=== PATIENT | female | born 1960 | race Caucasian/White ===

== ENCOUNTER 2018-03-19 16:46 | Inpatient (IN) ==
--- NOTE | 2018-03-19 17:37 | Emergency Department Note ---
ED Disposition Clinical Impression: Dehydration, UTI (urinary tract infection) Fever Qualifiers: Fever type: unspecified Qualified Code(s): R50.9 - Fever, unspecified Diarrhea Qualifiers: Diarrhea type: presumed infectious Qualified Code(s): R19.7 - Diarrhea, unspecified Disposition: Admitted as Observation Condition on Discharge: Fair Referrals: Provider,Referral, [Primary Care Provider] - Time of Disposition: 20:09 - Critical Care Critical Care Time: No Attestation: On 03/19/18, the high probability of a clinically significant, sudden or life threatening deterioration of the following system(s) required my full and direct attention, intervention and personal management. The time I documented below is in addition to time spent performing reported procedures but includes the following listed in this critical care notation. Medical Decision Making - Amador Inquiry Pt receiving controlled substance: No Amador was queried for this patient: No Vital Signs: 03/19/18 16:52 03/19/18 17:22 03/19/18 17:52 Temperature 101.6 F H 100.8 F H Temperature Source Oral Oral Pulse Rate [Right Radial] 88 97 H 88 Respiratory Rate 20 22 20 Blood Pressure [Right Arm] 100/50 L 86/55 L 105/51 L Blood Pressure Mean [Right Arm] 66 65 69 Blood Pressure Source [Right Arm] Automatic Cuff Automatic Cuff Automatic Cuff Blood Pressure Position [Right Arm] Sitting Sitting Sitting 02 Sat by Pulse Oximetry 95 94 L 95 Oxygen Delivery Method Room Air Room Air Room Air 03/19/18 18:55 Temperature Temperature Source Pulse Rate [Right Radial] 90 Respiratory Rate 20 Blood Pressure [Right Arm] 97/64 L Blood Pressure Mean [Right Arm] 75 Blood Pressure Source [Right Arm] Automatic Cuff Blood Pressure Position [Right Arm] Sitting 02 Sat by Pulse Oximetry 95 Oxygen Delivery Method Room Air - Lab Data Lab Results 03/19/18 17:14: POC Glucose 261 H 03/19/18 17:15: WBC 11.6 H, RBC 3.71 L, Hgb 10.9 L, Hct 33.4 L, MCV 89.9, MCH 29.3, MCHC 32.6, RDW 15.0, Plt Count 304, MPV 9.0, Neut % (Auto) 90.1 H, Lymph % (Auto) 5.5 L, [place] % (Auto) 3.6, Eos % (Auto) 0.3, Baso % (Auto) 0.5, Neut # (Auto) 10.5 H, Lymph # (Auto) 0.6 L, [place] # (Auto) 0.4, Eos # (Auto) 0.0, Baso # (Auto) 0.1, Total Counted 100, Neutrophils % (Manual) 83 H, Band Neutrophils % 1.0, Lymphocytes % (Manual) 9 L, Monocytes % (Manual) 6, Metamyelocytes % 1.0, Platelet Estimate Normal, RBC Morphology Normal 03/19/18 17:15: Sodium 128 L, Potassium 4.3, Chloride 94 L, Carbon Dioxide 14 L, Anion Gap 24.3 H, BUN 37 H, Creatinine 2.04 H, Estimated Creat Clear 36, Estima anthony GFR 25 L, Est GFR ( Amer) 31 L, Glucose 254 H, Calcium 9.2, Total Bilirubin 0.8, AST 19, ALT 21, Alkaline Phosphatase 129 H, Total Protein 8.1, Albumin 2.6 L, Globulin 5.5 H, Albumin/Globulin Ratio 0.5 L 03/19/18 17:15: Influenza Type A Ag Negative, Influenza Type B Ag Negative 03/19/18 17:15: Lactate 1.3 03/19/18 17:40: Urine Color Yellow, Urine Appearance Sl cloudy, Urine pH 8.0, Ur Specific [place] 1.010, Urine Protein 1+, Urine Glucose (UA) Negative, Urine Ketones Negative, Urine Blood Trace-l, Urine Nitrate Negative, Urine Bilirubin Negative, Urine Urobilinogen 1.0, Ur Leukocyte Esterase 3+ A, Urine RBC Occasional, Urine WBC 3-5, Ur Squamous Epith Cells Occasional, Urine Bacteria 3+ Result diagrams: 03/19/18 17:15 03/19/18 17:15 Orders (Tests/Meds): ED MEDICATIONS Generic Name Dose Route Start Last Admin Trade Name Freq PRN Reason Stop Dose Admin Sodium Chloride 1,000 mls @ 999 mls/hr 03/19/18 17:30 03/19/18 17:26 Sod Chlor 0.9% 1000ml Bag IV 03/19/18 18:30 999 mls/hr .Q1H1M BIJAN Administration Ceftriaxone Sodium 2 gm/ 100 mls @ 200 mls/hr 03/19/18 19:15 03/19/18 19:22 Sodium Chloride IV 04/02/18 19:14 200 mls/hr Q24H BIJAN Administration Protocol Sodium Chloride 10 ml 03/19/18 16:58 Saline Flush 10ml Syringe IV 04/18/18 16:57 NEEDED PRN Maintain IV Site ORDERS Category Date Time Status CXR --portable [XR chest portable] Stat Exams 03/19/18 19:07 Taken UA [Urinalysis and Microscopic] Stat Lab 03/19/18 17:40 Ordered Blood Culture Stat Micro 03/19/18 17:25 Ordered Urine Culture Stat Micro 03/19/18 17:40 Received General Adult HPI - General Chief complaint: Nausea/Vomiting/Diarrhea Stated complaint: vomiting,weakness Time Seen by Provider: 03/19/18 17:34 Mode of Arrival: Wheelchair Limitations: No Limitations Description of Symptoms (Recalled from ER Triage Doc. by RN): Pt reports vomitting and diarrhea for approx 3 days. Pt reports weakness, states unable to keep anything down. Pt reports she is diabetic and her sugar has been elevated. Pt also reports body aches - History of Present Illness HPI narrative: some gi upset for two weeks, much worse in last three days. NO prior evals. Diarrhea likely biggest problem. Also has a urostomy and other potential sources of infection. No skin breakdown reported. - Related Data Home Medications Medication Instructions Recorded Confirmed ALPRAZolam [Xanax 0.5mg tab] 1 tab PO TIDP PRN 08/26/17 03/19/18 Aspirin [Aspirin 81mg EC Tab] 81 mg PO DAILY 08/26/17 08/26/17 Citalopram Hydrobromide [Celexa] 40 mg PO DAILY 08/26/17 08/26/17 Gabapentin [Gabapentin 300mg Cap] 1 tab PO HS 08/26/17 03/19/18 Insulin NPH Hum/Reg Insulin Hm 30 units SQ BID 08/26/17 08/26/17 [Novolin 70-30 100 Unit/ml Vial] Levothyroxine Sodium 25 mcg PO DAILY 08/26/17 08/26/17 [Levothyroxine 25mcg (0.025mg) Tab] Lisinopril [Lisinopril 2.5mg Tab] 1 tab PO DAILY 08/26/17 03/19/18 Nystatin [Nystatin Cr 100,000 1 applic TOPICAL DAILY 08/26/17 08/26/17 Units/GM 30GM] Triamcinolone Acetonide [Kenalog 1 applic TOPICAL DAILY 08/26/17 08/26/17 0.1% cream 30gm tube] Zolpidem Tartrate [Ambien] 5 mg PO HS 08/26/17 03/19/18 Carvedilol [Carvedilol 3.125mg Tab] 3.125 mg PO DAILY 03/19/18 03/19/18 Allergies Allergy/AdvReac Type Severity Reaction Status Date / Time No Known Allergies Allergy Unverified 01/29/17 14:53 [facility] History - Hepatitis A Screen Drug use history?: No High risk sexual behaviors?: No History of sexually transmitted infection?: No Currently employed?: No Childcare worker?: No Do you have indoor plumbing?: Yes Do you have electricity?: Yes Attestation statement:: This patient has been screened for Hepatitis A risk factors. Medical History: Reports:: Cancer (bladder), Diabetes Mellitus Type 2 Denies:: Diabetes Mellitus Type 1, MRSA Amputation: No - Social History Smoking Status: Current every day smoker Tobacco Type: cigarettes # Packs/Day (cigarettes): 1 Alcohol Intake: never ROS Obtained: Yes All systems reviewed & no additional complaints - Constitutional Constitutional: Reports system reviewed and no additional complaints, except as docu, Reports chills, Reports fever(s), Reports lethargy, Reports weakness - Eyes Eyes: Reports system reviewed and no additional complaints, except as docu, Reports change in vision - ENT Ears, Nose, Mouth, and Throat: Reports system reviewed and no additional comp laints, except as docu, Reports nasal discharge, Reports sinus pressure - Cardiovascular Cardiovascular: Reports system reviewed and no additional complaints, except as docu, Reports chest pain, Reports chest pain at rest, Reports chest pain with activity, Reports dyspnea, Reports dyspnea on exertion - Respiratory Respiratory: Yes system reviewed and no additional complaints, except as docu, Yes chest congestion, Yes cough, No coughing up blood, No stridor, No wheezing - Gastrointestinal Gastrointestingal: Reports: system reviewed and no additional complaints, except as docu, abdominal pain, diarrhea, nausea. Denies: bright red blood in stools, black, tarry stools - Genitourinary Female Genitourinary: Reports system reviewed and no additional complaints, except as docu, Reports other (urostomy bag) - Musculoskeletal Musculoskeletal: Reports system reviewed and no additional complaints, except as docu, Denies joint pain, Denies joint stiffness, Denies joint swelling - Integumentary/Breasts Skin/Breast: Denies itching, Denies rash, Denies skin pain - Neurologic Neurologic: Reports system reviewed and no additional complaints, except as docu, Denies behavioral changes, Denies unsteadiness, Denies frequent falls, Denies headache(s), Denies numbness, Denies syncope, Denies tingling, Denies tremor(s) - Hematologic/Lymphatic Henatologic/Lymphatic: Reports system reviewed and no additional complaints, except as docu, Denies easy bleeding, Denies easy bruising, Denies lym phadenopathy Physical Exam - General General appearance: alert, in distress, other - Head Head exam: atraumatic, normocephalic, normal inspection - Eye Eye exam: Present: normal appearance, PERRL, EOMI - ENT ENT exam: Present: normal exam, normal oropharynx, mucous membranes moist, TM's normal bilaterally, normal external ear exam - Neck Neck exam: Present: normal inspection, full ROM, trachea midline. Absent: meningismus, lymphadenopathy - Chest Chest inspection: Present: normal inspection, symmetric chest wall rise. Absent: tenderness - Respiratory Respiratory exam: Present: normal lung sounds bilaterally. Absent: respiratory distress - Cardiovascular Cardiovascular exam: Present: regular rate, normal rhythm, tachycardia. Absent: JVD - Abdominal Exam Abdominal exam: Present: soft, tenderness. Absent: distention, guarding, rebound, rigidity, mass Abdominal tenderness: Present: diffuse, mild - Extremities Exam Extremities exam: Present: normal inspection, full ROM, normal capillary refill. Absent: calf tenderness - Back Exam Back exam: Present: normal inspection. Absent: tenderness - Neurological Exam Neurological exam: Present: alert, oriented X3, CN II-XII intact - Psychiatric Psychiatric exam: Present: normal affect, normal mood - Skin Skin exam: Present: warm, dry, intact, normal color - Lymphatic Lymphatic Findings: no adenopathy
[2018-03-19 17:47] LABS: Microscopic, Urine URINE MICROSCOPIC (MICROSCOPIC)
[2018-03-19 17:48] LABS: Albumin Level 2.6 gm/dL (3.4-5.0); Albumin/Globulin Ratio 0.5 (1.1-1.8); Anion Gap 24.3 mEq/L (5-15); Basophils # 0.1 K/mm3 (0-0.2); Basophils % 0.5 % (0.1-2.0); Bilirubin,Total 0.8 mg/dL (0.2-1.0); Calcium 9.2 mg/dL (8.5-10.1); Eosinophils % 0.3 % (0.1-12.0); Globulin 5.5 gm/dl (1.3-3.2); Hematocrit 33.4 % (37.0-47.0); Hemoglobin 10.9 g/dL (12.2-16.2); Lymphocytes # 0.6 K/mm3 (0.7-4.5); Lymphocytes % 5.5 % (10-50); Mean Corpuscular HGB Conc 32.6 g/dL (31.8-35.4); Mean Corpuscular Hemoglobin 29.3 pg (27.0-31.2); Mean Corpuscular Volume 89.9 fl (81-99); Monocytes # 0.4 K/mm3 (0.1-1.0); Monocytes % 3.6 % (1.7-9.3); Neutrophils # 10.5 K/mm3 (1.8-7.8); Neutrophils % 90.1 % (37.0-80.0); Platelet Count 304 K/mm3 (142-424); Potassium 4.3 mmoL/L (3.5-5.1); Red Blood Count 3.71 M/mm3 (4.20-5.40); Total Protein,Serum 8.1 gm/dL (6.4-8.2); White Blood Count 11.6 K/mm3 (4.8-10.8)
[2018-03-19 17:49] LABS: Appearance,Urine SL CLOUDY (Clear); Blood, Urine TRACE-L (Negative); Color,Urine YELLOW (Yellow); Glucose,Urine (UA) Negative (Negative); Ketones,Urine Negative (Negative); Leukocyte Esterase,Urine 3+ (Negative); Protein,Urine 1+ (Negative)
[2018-03-19 17:56] LABS: Bilirubin,Urine Negative (Negative)
[2018-03-19 18:05] LABS: Bacteria,Urine 3+ /lpf; RBC,Urine Occasional #/hpf (0-3); Squamous Epithelial Cell,Urine Occasional #/hpf (0-5)
[2018-03-19 18:27] LABS: Lymphocytes % 9 % (10-50); Monocytes % 6 % (2-9); Neutrophils % 83 % (42-76); Total Cells Counted 100
[2018-03-19 18:28] LABS: RBC Morphology Normal
[2018-03-20 06:40] LABS: Anion Gap 21.8 mEq/L (5-15); Potassium 3.8 mmoL/L (3.5-5.1)
[2018-03-20 06:43] LABS: Basophils % 0.2 % (0.1-2.0); Hematocrit 26.8 % (37.0-47.0); Lymphocytes # 0.5 K/mm3 (0.7-4.5); Lymphocytes % 7.1 % (10-50); Mean Corpuscular HGB Conc 31.1 g/dL (31.8-35.4); Mean Corpuscular Hemoglobin 28.7 pg (27.0-31.2); Mean Corpuscular Volume 92.2 fl (81-99); Mean Platelet Volume 9.3 fl (7.4-10.4); Monocytes # 0.4 K/mm3 (0.1-1.0); Monocytes % 4.7 % (1.7-9.3); Neutrophils # 6.8 K/mm3 (1.8-7.8); Neutrophils % 87.9 % (37.0-80.0); Platelet Count 247 K/mm3 (142-424); Red Blood Count 2.91 M/mm3 (4.20-5.40); Red Cell Distribution Width 14.8 % (11.5-17.5); White Blood Count 7.7 K/mm3 (4.8-10.8)
[2018-03-20 07:15] LABS: Calcium 7.8 mg/dL (8.5-10.1)
--- NOTE | 2018-03-20 07:24 | Pharmacy Consult Notes ---
[facility] Pharmacy VTE Monitoring - Patient Demographics Admission date: 03/19/18 Report Date: 03/20/18 Time: 07:24 Allergies/Adverse Reactions: Patient Allergies No Known Allergies Allergy (Verified 03/20/18 00:13) Height: 1.52 m Weight: 73.936 kg Patient Problems: Current Active Problems Dehydration (Acute) UTI (urinary tract infection) (Acute) Fever (Acute) Diarrhea (Acute) - VTE Risk Labs: VTE Related Lab Results Hgb 10.9 g/dL (12.2-16.2) L 03/19/18 17:15 Hct 26.8 % (37.0-47.0) L 03/20/18 06:00 Plt Count 247 K/mm3 (142-424) 03/20/18 06:00 BUN 30 mg/dL (7-18) H 03/20/18 06:00 Creatinine 1.61 mg/dL (0.55-1.02) H D 03/20/18 06:00 Estimated Creat Clear 46 mL/min (50-200) 03/20/18 06:00 Was VTE Risk Assessment Performed: Yes VTE Risk Level: Very Low Risk Clinical Trial Participant: No - Prophylaxis VTE Prophylaxis Ordered?: Yes Types of VTE Prophylaxis: TEDS Knee High
--- NOTE | 2018-03-20 08:41 | Pharmacy Consult Notes ---
- Pharmacy Consult Date: 03/20/18 Time: 08:40 Referring provider: DR. DAWKINS Reason for Consult:: VANCOMYCIN DOSING Allergies and ADEs:: Allergies Allergy/AdvReac Type Severity Reaction Status Date / Time No Known Allergies Allergy Verified 03/20/18 00:13 Home Medications:: Home Medications Medication Instructions Recorded Confirmed Type ALPRAZolam [Xanax 0.5mg tab] 0.5 mg PO HSP PRN 08/26/17 03/20/18 History Aspirin [Aspirin 81mg EC Tab] 81 mg PO DAILY 08/26/17 03/20/18 History Citalopram Hydrobromide [Celexa] 40 mg PO DAILY 08/26/17 03/20/18 History Gabapentin [Gabapentin 300mg Cap] 300 mg PO HS 08/26/17 03/20/18 History Insulin NPH Hum/Reg Insulin Hm 30 units SQ BID 08/26/17 08/26/17 History [Novolin 70-30 100 Unit/ml Vial] Levothyroxine Sodium 25 mcg PO DAILY 08/26/17 03/20/18 History [Levothyroxine 25mcg (0.025mg) Tab] Lisinopril [Lisinopril 2.5mg Tab] 2.5 tab PO BID 08/26/17 03/20/18 History Carvedilol [Carvedilol 3.125mg Tab] 3.125 mg PO DAILY 03/19/18 03/19/18 History Zolpidem Tartrate [Ambien 5mg 5 mg PO HSP PRN 03/20/18 03/20/18 History tablet] Height: 1.52 m Weight: 73.936 kg Laboratory Results:: Laboratory Results - last 24 hr 03/19/18 17:14: POC Glucose 261 H 03/19/18 17:15: WBC 11.6 H, RBC 3.71 L, Hgb 10.9 L, Hct 33.4 L, MCV 89.9, MCH 29.3, MCHC 32.6, RDW 15.0, Plt Count 304, MPV 9.0, Neut % (Auto) 90.1 H, Lymph % (Auto) 5.5 L, [place] % (Auto) 3.6, Eos % (Auto) 0.3, Baso % (Auto) 0.5, Neut # (Auto) 10.5 H, Lymph # (Auto) 0.6 L, [place] # (Auto) 0.4, Eos # (Auto) 0.0, Baso # (Auto) 0.1, Total Counted 100, Neutrophils % (Manual) 83 H, Band Neutrophils % 1.0, Lymphocytes % (Manual) 9 L, Monocytes % (Manual) 6, Metamyelocytes % 1.0, Platelet Estimate Normal, RBC Morphology Normal 03/19/18 17:15: Sodium 128 L, Potassium 4.3, Chloride 94 L, Carbon Dioxide 14 L, Anion Gap 24.3 H, BUN 37 H, Creatinine 2.04 H, Estimated Creat Clear 36, Estimated GFR 25 L, Est GFR ( Amer) 31 L, Glucose 254 H, Calcium 9.2, Total Bilirubin 0.8, AST 19, ALT 21, Alkaline Phosphatase 129 H, Total Protein 8.1, Albumin 2.6 L, Globulin 5.5 H, Albumin/Globulin Ratio 0.5 L 03/19/18 17:15: Influenza Type A Ag Negative, Influenza Type B Ag Negative 03/19/18 17:15: Lactate 1.3 03/19/18 17:40: Urine Color Yellow, Urine Appearance Sl cloudy, Urine pH 8.0, Ur Specific [place] 1.010, Urine Protein 1+, Urine Glucose (UA) Negative, Urine Ketones Negative, Urine Blood Trace-l, Urine Nitrate Negative, Urine Bilirubin Negative, Urine Urobilinogen 1.0, Ur Leukocyte Esterase 3+ A, Urine RBC Occasional, Urine WBC 3-5, Ur Squamous Epith Cells Occasional, Urine Bacteria 3+ 03/19/18 21:54: POC Glucose 228 H 03/20/18 05:45: POC Glucose 169 H 03/20/18 06:00: WBC 7.7 D, RBC 2.91 L, Hct 26.8 L, MCV 92.2, MCH 28.7, MCHC 31.1 L, RDW 14.8, Plt Count 247, MPV 9.3, Neut % (Auto) 87.9 H, Lymph % (Auto) 7.1 L, [place] % (Auto) 4.7, Eos % (Auto) 0.0 L, Baso % (Auto) 0.2, Neut # (Auto) 6.8, Lymph # (Auto) 0.5 L, [place] # (Auto) 0.4, Eos # (Auto) 0.0, Baso # (Auto) 0.0 03/20/18 06:00: Sodium 133 L, Potassium 3.8, Chloride 103, Carbon Dioxide 12 L, Anion Gap 21.8 H, BUN 30 H, Creatinine 1.61 H D, Estimated Creat Clear 46, Estimated GFR 33 L, Est GFR ( Amer) 40 L D, Glucose 162 H D, Calcium 7.8 L D Medical History: Reports:: Cancer, Coronary Artery Disease, Diabetes Mellitus Type 2, Hyperlipidemia, Hypertension, Myocardial Infarction Denies:: Diabetes Mellitus Type 1, MRSA Assessment and Plan - Assessment and plan all Dx Assessment and Plan for all problems:: BASED ON VANCOMYCIN TROUGH LEVEL, RECOMMEND VANCOMYCIN 1 GM IV Q24H. WILL OBTAIN VANCOMYCIN TROUGH LEVEL PRIOR TO 4TH DOSE. PHARMACY WILL FOLLOW DAILY AND ADJUST APPROPRIATE.
[2018-03-20 08:52] LABS: Lymphocytes % 6 % (10-50); Monocytes % 4 % (2-9); Neutrophils % 90 % (42-76); Total Cells Counted 100
[2018-03-20 08:53] LABS: RBC Morphology Normal
--- NOTE | 2018-03-20 09:09 | History & Physical Report ---
*Admission Date: 03/19/18 *Chief complaint: weakness *History of present illness: 57-year-old female to the ER with complaints of weakness, diarrhea and feeling bad. Patient was admitted with positive blood cultures waiting identification of bug. Patient has history of bladder cancer with ileostomy and pacemaker. Patient placed on antibiotics. [facility] History I have reviewed the patient's past medical history: Yes Medical History: Reports:: Cancer, Coronary Artery Disease, Diabetes Mellitus Type 2, Hyperlipidemia, Hypertension, Myocardial Infarction Denies:: Diabetes Mellitus Type 1, MRSA Have you ever received a pneumonia vaccine?: No Have you received a flu vaccine this season?: Yes Other Surgeries: Yes: Cardiac Catheterization, Hysterectomy-Total, Open Heart Surgery Amputation: No Fractures: No - *Social History Educational Level: Attended High School Smoking Status: Current every day smoker Tobacco Type: cigarettes # Packs/Day (cigarettes): 1 Alcohol Intake: never Occupational Status: disabled Housing: house Household Members: spouse, children, other Travel in the last 8 weeks: None - Psychiatric History Expresses thoughts of harming self/others: None Suicide Plan Description: No Plan Family Hx:: Cancer, Coronary Artery Disease, Diabetes Review of Systems - Review of Systems Review of systems:: pertinent systems reviewed and negative unless documented below - Constitutional Reports weakness - Eyes Denies change in vision - ENT Denies sore throat - *Cardiovascular Reports lightheadedness, Denies chest pain at rest - *Respiratory Denies cough - *Gastrointestinal Reports loose stools, Denies bloating - *Genitourinary Denies urinary urgency - *Musculoskeletal Denies decreased muscle mass - Integumentary/Breasts Denies rash - *Neurologic Reports weakness, Denies behavioral changes, Denies unsteadiness, Denies frequent falls, Denies headache(s), Denies numbness, Denies fainting, Denies tingling, Denies tremor(s) - Psychiatric Denies anxiety - Endocrine Denies flushing - Hematologic/Lymphatic Denies enlarged lymph nodes - Allergic/Immunologic Reports wheezing, Denies lip swelling Meds Home Medications Medication Instructions Recorded Confirmed Type ALPRAZolam [Xanax 0.5mg tab] 0.5 mg PO HSP PRN 08/26/17 03/20/18 History Aspirin [Aspirin 81mg EC Tab] 81 mg PO DAILY 08/26/17 03/20/18 History Citalopram Hydrobromide [Celexa] 40 mg PO DAILY 08/26/17 03/20/18 History Gabapentin [Gabapentin 300mg Cap] 300 mg PO HS 08/26/17 03/20/18 History Insulin NPH Hum/Reg Insulin Hm 30 units SQ BID 08/26/17 08/26/17 History [Novolin 70-30 100 Unit/ml Vial] Levothyroxine Sodium 25 mcg PO DAILY 08/26/17 03/20/18 History [Levothyroxine 25mcg (0.025mg) Tab] Lisinopril [Lisinopril 2.5mg Tab] 2.5 tab PO BID 08/26/17 03/20/18 History Carvedilol [Carvedilol 3.125mg Tab] 3.125 mg PO DAILY 03/19/18 03/19/18 History Zolpidem Tartrate [Ambien 5mg 5 mg PO HSP PRN 03/20/18 03/20/18 History tablet] Allergies Allergy/AdvReac Type Severity Reaction Status Date / Time No Known Allergies Allergy Verified 03/20/18 00:13 Exam Vital signs and Labs for Last 24 Hours: Temp Pulse Resp BP Pulse Ox 98.8 F 87 18 93/56 L 95 03/20/18 08:00 03/20/18 08:00 03/20/18 08:00 03/20/18 08:00 03/20/18 08:00 Laboratory Results - last 24 hr 03/19/18 17:14: POC Glucose 261 H 03/19/18 17:15: WBC 11.6 H, RBC 3.71 L, Hgb 10.9 L, Hct 33.4 L, MCV 89.9, MCH 29.3, MCHC 32.6, RDW 15.0, Plt Count 304, MPV 9.0, Neut % (Auto) 90.1 H, Lymph % (Auto) 5.5 L, [place] % (Auto) 3.6, Eos % (Auto) 0.3, Baso % (Auto) 0.5, Neut # (Auto) 10.5 H, Lymph # (Auto) 0.6 L, [place] # (Auto) 0.4, Eos # (Auto) 0.0, Baso # (Auto) 0.1, Total Counted 100, Neutrophils % (Manual) 83 H, Band Neutrophils % 1.0, Lymphocytes % (Manual) 9 L, Monocytes % (Manual) 6, Metamyelocytes % 1.0, Platelet Estimate Normal, RBC Morphology Normal 03/19/18 17:15: Sodium 128 L, Potassium 4.3, Chloride 94 L, Carbon Dioxide 14 L, Anion Gap 24.3 H, BUN 37 H, Creatinine 2.04 H, Estimated Creat Clear 36, Estimated GFR 25 L, Est GFR ( Amer) 31 L, Glucose 254 H, Calcium 9.2, Total Bilirubin 0.8, AST 19, ALT 21, Alkaline Phosphatase 129 H, Total Protein 8.1, Albumin 2.6 L, Globulin 5.5 H, Albumin/Globulin Ratio 0.5 L 03/19/18 17:15: Influenza Type A Ag Negative, Influenza Type B Ag Negative 03/19/18 17:15: Lactate 1.3 03/19/18 17:40: Urine Color Yellow, Urine Appearance Sl cloudy, Urine pH 8.0, Ur Specific [place] 1.010, Urine Protein 1+, Urine Glucose (UA) Negative, Urine Ketones Negative, Urine Blood Trace-l, Urine Nitrate Negative, Urine Bilirubin Negative, Urine Urobilinogen 1.0, Ur Leukocyte Esterase 3+ A, Urine RBC Occasional, Urine WBC 3-5, Ur Squamous Epith Cells Occasional, Urine Bacteria 3+ 03/19/18 21:54: POC Glucose 228 H 03/20/18 05:45: POC Glucose 169 H 03/20/18 06:00: WBC 7.7 D, RBC 2.91 L, Hct 26.8 L, MCV 92.2, MCH 28.7, MCHC 31.1 L, RDW 14.8, Plt Count 247, MPV 9.3, Neut % (Auto) 87.9 H, Lymph % (Auto) 7.1 L, [place] % (Auto) 4.7, Eos % (Auto) 0.0 L, Baso % (Auto) 0.2, Neut # (Auto) 6.8, Lymph # (Auto) 0.5 L, [place] # (Auto) 0.4, Eos # (Auto) 0.0, Baso # (Auto) 0.0, Total Counted 100, Neutrophils % (Manual) 90 H, Lymphocytes % (Manual) 6 L, Monocytes % (Manual) 4, Platelet Estimate Normal, RBC Morphology Normal 03/20/18 06:00: Sodium 133 L, Potassium 3.8, Chloride 103, Carbon Dioxide 12 L, Anion Gap 21.8 H, BUN 30 H, Creatinine 1.61 H D, Estimated Creat Clear 46, Estimated GFR 33 L, Est GFR ( Amer) 40 L D, Glucose 162 H D, Calcium 7.8 L D I & O for Last 24 hours: Intake & Output 03/17/18 03/18/18 03/19/18 03/20/18 11:59 11:59 11:59 11:59 Intake Total 4480 / 4480 Output Total 1200 / 1200 Balance 3280 / 3280 Weight 163 lb Microbiology Reports for the Last 24 Hours: Microbiology 03/19/18 17:40 Urine,Clean Catch Urine Culture - Final Multiple organisms, suggests contamination. 03/19/18 17:25 Blood Blood Culture - Preliminary 03/19/18 17:25 Blood Blood Culture - Preliminary - Constitutional no acute distress - *Routine HEENT Exam Head: Present: normocephalic Eye: Present: EOMI, PERRL ENT: Present: mucous membranes moist - *Routine Neck Exam Present: supple. Absent: lymphadenopathy - *Routine Respiratory Exam Present: wheezes - *Routine Cardiovascular Exam Present: RRR, murmur - *Routine Abdominal Exam Present: soft, normoactive bowel sounds, ostomy. Absent: tenderness Comments: Iliostomy draining on the right side of the abdomen. - *Routine Extremities Exam Absent: cyanosis, clubbing, edema - *Routine Skin Exam Present: warm. Absent: rash - *Routine Neurological Exam Present: alert, oriented X3 Assessment and Plan (1) Bladder cancer Current visit: Yes Status: Acute Category: Medical Code(s): C67.9 - Malignant neoplasm of bladder, unspecified (2) Pacemaker Current visit: Yes Status: Acute Category: Medical Code(s): Z95.0 - Presence of cardiac pacemaker (3) Ileostomy in place Current visit: Yes Status: Acute Category: Medical Code(s): Z93.2 - Ileostomy status (4) Diarrhea Current visit: Yes Status: Acute Qualifiers: Diarrhea type: presumed infectious Qualified Code(s): R19.7 - Diarrhea, unspecified Category: Medical Code(s): R19.7 - Diarrhea, unspecified (5) Diabetes mellitus Current visit: No Status: Acute Qualifiers: Diabetes mellitus type: type 1 Diabetes mellitus complication status: with unspecified complications Qualified Code(s): E10.8 - Type 1 diabetes mellitus with unspecified complications Category: Medical Code(s): E11.9 - Type 2 diabetes mellitus without complications (6) Renal insufficiency Current visit: No Status: Acute Category: Medical Code(s): N28.9 - Disorder of kidney and ureter, unspecified (7) Bacteremia Current visit: Yes Status: Acute Category: Medical Code(s): R78.81 - Bacteremia - Assessment and plan all Dx Assessment and Plan for all problems:: Rounded with Dr. Davis all orders per Ryan
[2018-03-20 09:12] LABS: Hemoglobin 8.4 g/dL (12.2-16.2)
--- NOTE | 2018-03-20 11:03 | Pharmacy Consult Notes ---
- Pharmacy Consult Date: 03/20/18 Time: 11:01 Referring provider: DR. DAWKINS Reason for Consult:: TOBRAMYCIN DOSING Allergies and ADEs:: Allergies Allergy/AdvReac Type Severity Reaction Status Date / Time No Known Allergies Allergy Verified 03/20/18 00:13 Home Medications:: Home Medications Medication Instructions Recorded Confirmed Type ALPRAZolam [Xanax 0.5mg tab] 0.5 mg PO HSP PRN 08/26/17 03/20/18 History Aspirin [Aspirin 81mg EC Tab] 81 mg PO DAILY 08/26/17 03/20/18 History Citalopram Hydrobromide [Celexa] 40 mg PO DAILY 08/26/17 03/20/18 History Gabapentin [Gabapentin 300mg Cap] 300 mg PO HS 08/26/17 03/20/18 History Insulin NPH Hum/Reg Insulin Hm 30 units SQ BID 08/26/17 08/26/17 History [Novolin 70-30 100 Unit/ml Vial] Levothyroxine Sodium 25 mcg PO DAILY 08/26/17 03/20/18 History [Levothyroxine 25mcg (0.025mg) Tab] Lisinopril [Lisinopril 2.5mg Tab] 2.5 tab PO BID 08/26/17 03/20/18 History Carvedilol [Carvedilol 3.125mg Tab] 3.125 mg PO DAILY 03/19/18 03/19/18 History Zolpidem Tartrate [Ambien 5mg 5 mg PO HSP PRN 03/20/18 03/20/18 History tablet] Height: 1.52 m Weight: 73.936 kg Laboratory Results:: Laboratory Results - last 24 hr 03/19/18 17:14: POC Glucose 261 H 03/19/18 17:15: WBC 11.6 H, RBC 3.71 L, Hgb 10.9 L, Hct 33.4 L, MCV 89.9, MCH 29.3, MCHC 32.6, RDW 15.0, Plt Count 304, MPV 9.0, Neut % (Auto) 90.1 H, Lymph % (Auto) 5.5 L, Sac % (Auto) 3.6, Eos % (Auto) 0.3, Baso % (Auto) 0.5, Neut # (Auto) 10.5 H, Lymph # (Auto) 0.6 L, Sac # (Auto) 0.4, Eos # (Auto) 0.0, Baso # (Auto) 0.1, Total Counted 100, Neutrophils % (Manual) 83 H, Band Neutrophils % 1.0, Lymphocytes % (Manual) 9 L, Monocytes % (Manual) 6, Metamyelocytes % 1.0, Platelet Estimate Normal, RBC Morphology Normal 03/19/18 17:15: Sodium 128 L, Potassium 4.3, Chloride 94 L, Carbon Dioxide 14 L, Anion Gap 24.3 H, BUN 37 H, Creatinine 2.04 H, Estimated Creat Clear 36, Estimated GFR 25 L, Est GFR ( Amer) 31 L, Glucose 254 H, Calcium 9.2, Total Bilirubin 0.8, AST 19, ALT 21, Alkaline Phosphatase 129 H, Total Protein 8.1, Albumin 2.6 L, Globulin 5.5 H, Albumin/Globulin Ratio 0.5 L 03/19/18 17:15: Influenza Type A Ag Negative, Influenza Type B Ag Negative 03/19/18 17:15: Lactate 1.3 03/19/18 17:40: Urine Color Yellow, Urine Appearance Sl cloudy, Urine pH 8.0, Ur Specific [place] 1.010, Urine Protein 1+, Urine Glucose (UA) Negative, Urine Ketones Negative, Urine Blood Trace-l, Urine Nitrate Negative, Urine Bilirubin Negative, Urine Urobilinogen 1.0, Ur Leukocyte Esterase 3+ A, Urine RBC Occasional, Urine WBC 3-5, Ur Squamous Epith Cells Occasional, Urine Bacteria 3+ 03/19/18 21:54: POC Glucose 228 H 03/20/18 05:45: POC Glucose 169 H 03/20/18 06:00: WBC 7.7 D, RBC 2.91 L, Hgb 8.4 L D, Hct 26.8 L, MCV 92.2, MCH 28.7, MCHC 31.1 L, RDW 14.8, Plt Count 247, MPV 9.3, Neut % (Auto) 87.9 H, Lymph % (Auto) 7.1 L, Sac % (Auto) 4.7, Eos % (Auto) 0.0 L, Baso % (Auto) 0.2, Neut # (Auto) 6.8, Lymph # (Auto) 0.5 L, Sac # (Auto) 0.4, Eos # (Auto) 0.0, Baso # (Auto) 0.0, Total Counted 100, Neutrophils % (Manual) 90 H, Lymphocytes % (Manual) 6 L, Monocytes % (Manual) 4, Platelet Estimate Normal, RBC Morphology Normal 03/20/18 06:00: Sodium 133 L, Potassium 3.8, Chloride 103, Carbon Dioxide 12 L, Anion Gap 21.8 H, BUN 30 H, Creatinine 1.61 H D, Estimated Creat Clear 46, Estimated GFR 33 L, Est GFR ( Amer) 40 L D, Glucose 162 H D, Calcium 7.8 L D Medical History: Reports:: Cancer, Coronary Artery Disease, Diabetes Mellitus Type 2, Hyperlipidemia, Hypertension, Myocardial Infarction Denies:: Diabetes Mellitus Type 1, MRSA Assessment and Plan (1) Bladder cancer Current visit: Yes Status: Acute Category: Medical Code(s): C67.9 - Malignant neoplasm of bladder, unspecified (2) Pacemaker Current visit: Yes Status: Acute Category: Medical Code(s): Z95.0 - Presence of cardiac pacemaker (3) Ileostomy in place Current visit: Yes Status: Acute Category: Medical Code(s): Z93.2 - Ileostomy status (4) Diarrhea Current visit: Yes Status: Acute Qualifiers: Diarrhea type: presumed infectious Qualified Code(s): R19.7 - Diarrhea, unspecified Category: Medical Code(s): R19.7 - Diarrhea, unspecified (5) Diabetes mellitus Current visit: No Status: Acute Qualifiers: Diabetes mellitus type: type 1 Diabetes mellitus complication status: with unspecified complications Qualified Code(s): E10.8 - Type 1 diabetes mellitus with unspecified complications Category: Medical Code(s): E11.9 - Type 2 diabetes mellitus without complications (6) Renal insufficiency Current visit: No Status: Acute Category: Medical Code(s): N28.9 - Disorder of kidney and ureter, unspecified (7) Bacteremia Current visit: Yes Status: Acute Category: Medical Code(s): R78.81 - Bacteremia - Assessment and plan all Dx Assessment and Plan for all problems:: BASED ON PATIENT'S FACTORS, RECOMMEND STARTING WITH TOBRAMYCIN 240 MG Q48H AT THIS TIME. WILL OBTAIN 4 AND 12 HOUR POST INFUSION LEVELS, TO DETERMINE CLEARANCE. STOPPING THE VANCOMYCIN AT THIS TIME. PHARMACY WILL FOLLOW DAILY AND ADJUST APPROPRIATE. BRAD CHAMBERS, PHARMD
[2018-03-21 07:37] LABS: Basophils % 0.3 % (0.1-2.0); Eosinophils # 0.1 K/mm3 (0.0-0.4); Eosinophils % 0.8 % (0.1-12.0); Hematocrit 24.7 % (37.0-47.0); Lymphocytes # 1.2 K/mm3 (0.7-4.5); Lymphocytes % 16.6 % (10-50); Mean Corpuscular HGB Conc 31.8 g/dL (31.8-35.4); Mean Corpuscular Hemoglobin 29.2 pg (27.0-31.2); Mean Corpuscular Volume 91.7 fl (81-99); Mean Platelet Volume 9.4 fl (7.4-10.4); Monocytes # 0.3 K/mm3 (0.1-1.0); Monocytes % 4.5 % (1.7-9.3); Neutrophils # 5.5 K/mm3 (1.8-7.8); Neutrophils % 77.9 % (37.0-80.0); Platelet Count 253 K/mm3 (142-424); White Blood Count 7.1 K/mm3 (4.8-10.8)
[2018-03-21 07:44] LABS: Anion Gap 18.7 mEq/L (5-15); Calcium 8.2 mg/dL (8.5-10.1); Potassium 3.7 mmoL/L (3.5-5.1)
[2018-03-21 07:47] LABS: Hemoglobin 7.9 g/dL (12.2-16.2)
--- NOTE | 2018-03-21 09:14 | Progress Note ---
Internal Medicine - PN: Subj *Date: 03/21/18 *Time: 08:20 Interval history: Today patient sitting up in with no complaints. Exam Vital signs and Labs for Last 24 Hours: Temp Pulse Resp BP Pulse Ox 98.5 F 83 15 90/54 L 98 03/21/18 07:49 03/21/18 07:49 03/21/18 07:49 03/21/18 07:49 03/21/18 07:49 Laboratory Results - last 24 hr 03/20/18 06:00: Hgb 8.4 L D 03/20/18 08:45: Stl Aeromonas (PCR) Not detected, Stl C. cayetanensis PCR Not detected, Stool Rotavirus (PCR) Not detected, Stl Adenov F 40/41 PCR Not detected, Stool Astrovirus (PCR) Not detected, Stool Campylobacter PCR Not detected, Stl C.difficile Tox PCR Not detected, Stool Cryptosporidium PCR Not detected, Stl E.coli Shiga Tox PCR Not detected, Stool E coli O157 PCR Not detected, Stl Enterotoxigenic E PCR Not detected, Stool EPEC (PCR) Not detected, Stool EAEC (PCR) Not detected, Stl E. histolytica PCR Not detected, Stool Giardia Lamblia PCR Not detected, Stool Salmonella PCR Not detected, Stool Sapovirus (PCR) Not detected, Stl P. shigelloides PCR Not detected, Stl Shigella/EIEC PCR Not detected, St Y.enterocolitica PCR Not detected, Stool Vibrio (PCR) Not detected, Stl Vibrio cholerae PCR Not detected, Stl Norovirus GI/GII PCR Detected A 03/20/18 11:08: POC Glucose 266 H 03/20/18 17:08: POC Glucose 119 H 03/20/18 17:52: Random Tobramycin 7.9 03/20/18 21:14: POC Glucose 133 H 03/21/18 02:05: Random Tobramycin 3.1 03/21/18 06:21: POC Glucose 117 H 03/21/18 06:50: WBC 7.1, RBC 2.70 L, Hgb 7.9 L*, Hct 24.7 L, MCV 91.7, MCH 29.2, MCHC 31.8, RDW 15.0, Plt Count 253, MPV 9.4, Neut % (Auto) 77.9, Lymph % (Auto) 16.6, [place] % (Auto) 4.5, Eos % (Auto) 0.8, Baso % (Auto) 0.3, Neut # (Auto) 5.5, Lymph # (Auto) 1.2, [place] # (Auto) 0.3, Eos # (Auto) 0.1, Baso # (Auto) 0.0 03/21/18 06:50: Sodium 137, Potassium 3.7, Chloride 106, Carbon Dioxide 16 L D, Anion Gap 18.7 H, BUN 22 H D, Creatinine 1.25 H D, Estimated Creat Clear 59, Estimated GFR 44 L, Est GFR ( Amer) 54 L D, Glucose 111 H, Calcium 8.2 L I & O for Last 24 hours: Intake & Output 03/18/18 03/19/18 03/20/18 03/21/18 11:59 11:59 11:59 11:59 Intake Total 4480 / 4480 1636 / 1636 Output Total 1570 / 1570 1325 / 1325 Balance 2910 / 2910 311 / 311 Weight 163 lb Microbiology Reports for the Last 24 Hours: Microbiology 03/19/18 17:25 Blood Blood Culture - Preliminary Gram Positive Cocci 03/19/18 17:25 Blood Blood Culture - Preliminary Gram Positive Cocci 03/19/18 17:40 Urine,Clean Catch Urine Culture - Final Multiple organisms, suggests contamination. - Constitutional no acute distress - *Routine HEENT Exam Head: Present: normocephalic Eye: Present: EOMI, PERRL ENT: Present: mucous membranes moist - *Routine Neck Exam Present: supple. Absent: lymphadenopathy - *Routine Respiratory Exam Present: CTA bilaterally - *Routine Cardiovascular Exam Present: RRR - *Routine Abdominal Exam Present: soft, normoactive bowel sounds, ostomy. Absent: tenderness Comments: Ileostomy right upper abdomen - *Routine Extremities Exam Absent: cyanosis, clubbing, edema - *Routine Skin Exam Present: warm. Absent: rash - *Routine Neurological Exam Present: alert, oriented X3 - Routine Psychiatric Exam Present: normal affect Assessment and Plan (1) Bladder cancer Current visit: Yes Status: Acute Category: Medical Code(s): C67.9 - Malignant neoplasm of bladder, unspecified (2) Pacemaker Current visit: Yes Status: Acute Category: Medical Code(s): Z95.0 - Presence of cardiac pacemaker (3) Ileostomy in place Current visit: Yes Status: Acute Category: Medical Code(s): Z93.2 - Ileostomy status (4) Diarrhea Current visit: Yes Status: Acute Qualifiers: Diarrhea type: presumed infectious Qualified Code(s): R19.7 - Diarrhea, unspecified Category: Medical Code(s): R19.7 - Diarrhea, unspecified (5) Diabetes mellitus Current visit: No Status: Acute Qualifiers: Diabetes mellitus type: type 1 Diabetes mellitus complication status: with unspecified complications Qualified Code(s): E10.8 - Type 1 diabetes mellitus with unspecified complications Category: Medical Code(s): E11.9 - Type 2 diabetes mellitus without complications (6) Renal insufficiency Current visit: No Status: Acute Category: Medical Code(s): N28.9 - Disorder of kidney and ureter, unspecified (7) Bacteremia Current visit: Yes Status: Acute Category: Medical Code(s): R78.81 - Bacteremia (8) Sepsis due to Streptococcus agalactiae Current visit: Yes Status: Acute Category: Medical Code(s): A40.1 - Sepsis due to streptococcus, group B (9) Decreased blood volume Current visit: Yes Status: Acute Category: Medical Code(s): E86.1 - Hypovolemia - Assessment and plan all Dx Assessment and Plan for all problems:: Rounded with Dr. Davis all orders per Ryan PICC line placement
--- NOTE | 2018-03-21 11:20 | Pharmacy Consult Notes ---
- Pharmacy Consult Date: 03/21/18 Time: 11:18 Referring provider: DR. DAWKINS Reason for Consult:: TOBRAMYCIN LEVELS Allergies and ADEs:: Allergies Allergy/AdvReac Type Severity Reaction Status Date / Time No Known Allergies Allergy Verified 03/20/18 00:13 Home Medications:: Home Medications Medication Instructions Recorded Confirmed Type ALPRAZolam [Xanax 0.5mg tab] 0.5 mg PO HSP PRN 08/26/17 03/20/18 History Aspirin [Aspirin 81mg EC Tab] 81 mg PO DAILY 08/26/17 03/20/18 History Citalopram Hydrobromide [Celexa] 40 mg PO DAILY 08/26/17 03/20/18 History Gabapentin [Gabapentin 300mg Cap] 300 mg PO HS 08/26/17 03/20/18 History Insulin NPH Hum/Reg Insulin Hm 40 units SQ DAILY 08/26/17 03/20/18 History [Novolin 70-30 100 Unit/ml Vial] Levothyroxine Sodium 25 mcg PO DAILY 08/26/17 03/20/18 History [Levothyroxine 25mcg (0.025mg) Tab] Lisinopril [Lisinopril 2.5mg Tab] 2.5 tab PO BID 08/26/17 03/20/18 History Carvedilol [Carvedilol 3.125mg Tab] 3.125 mg PO DAILY 03/19/18 03/19/18 History Insulin NPH Hum/Reg Insulin Hm 25 units SQ PM 03/20/18 03/20/18 History [Novolin 70-30 100 Unit/ml Vial] Zolpidem Tartrate [Ambien 5mg 5 mg PO HSP PRN 03/20/18 03/20/18 History tablet] Height: 1.52 m Weight: 73.936 kg Laboratory Results:: Laboratory Results - last 24 hr 03/20/18 08:45: Stl Aeromonas (PCR) Not detected, Stl C. cayetanensis PCR Not detected, Stool Rotavirus (PCR) Not detected, Stl Adenov F 40/41 PCR Not detected, Stool Astrovirus (PCR) Not detected, Stool Campylobacter PCR Not detected, Stl C.difficile Tox PCR Not detected, Stool Cryptosporidium PCR Not detected, Stl E.coli Shiga Tox PCR Not detected, Stool E coli O157 PCR Not detected, Stl Enterotoxigenic E PCR Not detected, Stool EPEC (PCR) Not detected, Stool EAEC (PCR) Not detected, Stl E. histolytica PCR Not detected, Stool Giardia Lamblia PCR Not detected, Stool Salmonella PCR Not detected, Stool Sapovirus (PCR) Not detected, Stl P. shigelloides PCR Not detected, Stl Shigella/EIEC PCR Not detected, St Y.enterocolitica PCR Not detected, Stool Vibrio (PCR) Not detected, Stl Vibrio cholerae PCR Not detected, Stl Norovirus GI/GII PCR Detected A 03/20/18 11:08: POC Glucose 266 H 03/20/18 17:08: POC Glucose 119 H 03/20/18 17:52: Random Tobramycin 7.9 03/20/18 21:14: POC Glucose 133 H 03/21/18 02:05: Random Tobramycin 3.1 03/21/18 06:21: POC Glucose 117 H 03/21/18 06:50: WBC 7.1, RBC 2.70 L, Hgb 7.9 L*, Hct 24.7 L, MCV 91.7, MCH 29.2, MCHC 31.8, RDW 15.0, Plt Count 253, MPV 9.4, Neut % (Auto) 77.9, Lymph % (Auto) 16.6, [place] % (Auto) 4.5, Eos % (Auto) 0.8, Baso % (Auto) 0.3, Neut # (Auto) 5.5, Lymph # (Auto) 1.2, [place] # (Auto) 0.3, Eos # (Auto) 0.1, Baso # (Auto) 0.0 03/21/18 06:50: Sodium 137, Potassium 3.7, Chloride 106, Carbon Dioxide 16 L D, Anion Gap 18.7 H, BUN 22 H D, Creatinine 1.25 H D, Estimated Creat Clear 59, Estimated GFR 44 L, Est GFR ( Amer) 54 L D, Glucose 111 H, Calcium 8.2 L 03/21/18 10:28: Crossmatch (AHG) See Detail 03/21/18 10:47: POC Glucose 170 H Medical History: Reports:: Cancer, Coronary Artery Disease, Diabetes Mellitus Type 2, Hyperlipidemia, Hypertension, Myocardial Infarction Denies:: Diabetes Mellitus Type 1, MRSA Assessment and Plan (1) Bladder cancer Current visit: Yes Status: Acute Category: Medical Code(s): C67.9 - Malignant neoplasm of bladder, unspecified (2) Pacemaker Current visit: Yes Status: Acute Category: Medical Code(s): Z95.0 - Pr esence of cardiac pacemaker (3) Ileostomy in place Current visit: Yes Status: Acute Category: Medical Code(s): Z93.2 - Ileostomy status (4) Diarrhea Current visit: Yes Status: Acute Qualifiers: Diarrhea type: presumed infectious Qualified Code(s): R19.7 - Diarrhea, unspecified Category: Medical Code(s): R19.7 - Diarrhea, unspecified (5) Diabetes mellitus Current visit: No Status: Acute Qualifiers: Diabetes mellitus type: type 1 Diabetes mellitus complication status: with unspecified complications Qualified Code(s): E10.8 - Type 1 diabetes mellitus with unspecified complications Category: Medical Code(s): E11.9 - Type 2 diabetes mellitus without complications (6) Renal insufficiency Current visit: No Status: Acute Category: Medical Code(s): N28.9 - Dis order of kidney and ureter, unspecified (7) Bacteremia Current visit: Yes Status: Acute Category: Medical Code(s): R78.81 - Bacteremia (8) Sepsis due to Streptococcus agalactiae Current visit: Yes Status: Acute Category: Medical Code(s): A40.1 - Sepsis due to streptococcus, group B (9) Decreased blood volume Current visit: Yes Status: Acute Category: Medical Code(s): E86.1 - Hypovolemia - Assessment and plan all Dx Assessment and Plan for all problems:: TOBRAMYCIN LEVELS: 4-HOUR LEVEL: 7.9 CALCULATED PEAK: 11.22 MCG/ML 12-HOUR LEVEL: 3.1 CALCULATED TROUGH: 0.05 MCG/ML BASED ON LEVELS AND PATIENT FACTORS, RECOMMEND CONTINUING TOBRAMYCIN 240 MG IV Q48H. PHARMACY WILL CONTINUE TO MONITOR DAILY AND ADJUST APPROPRIATE.
[2018-03-22 06:48] LABS: Basophils % 0.3 % (0.1-2.0); Eosinophils # 0.1 K/mm3 (0.0-0.4); Eosinophils % 1.8 % (0.1-12.0); Hematocrit 32.3 % (37.0-47.0); Lymphocytes # 0.9 K/mm3 (0.7-4.5); Lymphocytes % 12.8 % (10-50); Mean Corpuscular HGB Conc 31.2 g/dL (31.8-35.4); Mean Corpuscular Volume 89.6 fl (81-99); Monocytes # 0.3 K/mm3 (0.1-1.0); Monocytes % 4.5 % (1.7-9.3); Neutrophils # 5.7 K/mm3 (1.8-7.8); Neutrophils % 80.6 % (37.0-80.0); Platelet Count 273 K/mm3 (142-424); Red Blood Count 3.61 M/mm3 (4.20-5.40); Red Cell Distribution Width 15.6 % (11.5-17.5); White Blood Count 7.1 K/mm3 (4.8-10.8)
[2018-03-22 07:00] LABS: Anion Gap 16.4 mEq/L (5-15); Calcium 8.3 mg/dL (8.5-10.1); Potassium 3.4 mmoL/L (3.5-5.1)
--- NOTE | 2018-03-22 09:21 | Discharge Summary ---
General - General Admission date:: 03/20/18 Discharge date: 03/22/18 HPI HPI: 57-year-old female to the ER with complaints of weakness, diarrhea and feeling bad. Patient was admitted with positive blood cultures waiting identification of bug. Patient has history of bladder cancer with ileostomy and pacemaker. Patient placed on antibiotics. Hospital Course Hospital Course: pt has responded well to ivf and abx with improved bp and dec temp and able to ambulate and tolerate diet- she has strep agalactiae sepsis and norovirus in stool - will be d/c to finish 10 day course of iv roch and had transfusion as pt was septic and hypotensive Objective Vital signs: Temp Pulse Resp BP Pulse Ox 98.0 F 82 18 118/68 95 03/22/18 07:47 03/22/18 07:47 03/22/18 07:47 03/22/18 07:47 03/22/18 07:47 no acute distress, obese - *Routine HEENT Exam Head: Present: normocephalic Eye: Present: EOMI, PERRL ENT: Present: mucous membranes dry - *Routine Neck Exam Present: supple. Absent: JVD - *Routine Respiratory Exam Present: CTA bilaterally - *Routine Cardiovascular Exam Present: RRR, murmur, S4 - *Routine Abdominal Exam Present: soft Comments: has iiliostomy - *Routine Extremities Exam Absent: calf tenderness - Routine Back/Spine/Pelvis Exam Back/Spine: Absent: CVA tenderness - *Routine Skin Exam Present: intact - *Routine Neurological Exam Present: alert, oriented X3, CN II-XII intact - Routine Psychiatric Exam Present: normal affect Results Labs on day of discharge: Labs from last 24 hours 03/22/18 03/22/18 03/21/18 06:37 06:29 20:30 Sodium 139 Potassium 3.4 L Chloride 107 Carbon Dioxide 19 L Anion Gap 16.4 H BUN 17 Creatinine 1.03 H Estimated Creat Clear 72 Estimated GFR 56 L Est GFR ( Amer) 67 D Glucose 135 H D POC Glucose 126 H 231 H Calcium 8.3 L Blood Type Blood Type Confirm Antibody Screen Antibody Identification Crossmatch (AHG) 03/21/18 03/21/18 03/21/18 16:05 11:45 10:47 Sodium Potassium Chloride Carbon Dioxide Anion Gap BUN Creatinine Estimated Creat Clear Estimated GFR Est GFR ( Amer) Glucose POC Glucose 198 H 170 H Calcium Blood Type Blood Type Confirm O Positive Antibody Screen Antibody Identification Crossmatch (AHG) 03/21/18 03/21/18 10:28 10:28 Sodium Potassium Chloride Carbon Dioxide Anion Gap BUN Creatinine Estimated Creat Clear Estimated GFR Est GFR ( Amer) Glucose POC Glucose Calcium Blood Type O Positive Blood Type Confirm Antibody Screen Positive Antibody Identification Anti-E Crossmatch (AHG) See Detail DS: Diagnosis - Discharge Diagnosis (1) Bladder cancer Status: Acute (2) Pacemaker Status: Acute (3) Ileostomy in place Status: Acute (4) Diarrhea Status: Acute (5) Diabetes mellitus Status: Acute (6) Renal insufficiency Status: Acute (7) Bacteremia Status: Acute (8) Sepsis due to Streptococcus agalactiae Status: Acute (9) Decreased blood volume Status: Acute (10) Gastroenteritis due to norovirus Status: Acute (11) Obesity (BMI 30.0-34.9) Status: Acute (12) Tobacco use Status: Acute (13) Hypothyroidism (acquired) Status: Acute Discharge Plan - Patient Discharge Instructions ACTIVITY: Continue current activity DIET: continue same diet Patient Instructions: DI for Dehydration -- Adult, DI for Urinary Tract Infection (UTI), DI for Diarrhea and Traveler's Diarrhea -- Adult, DI for Bacteremia--Child - Follow up Plan Disposition: Home, Self-Shelter Medications: Home Medications Medication Instructions Recorded Confirmed Type ALPRAZolam [Xanax 0.5mg tab] 0.5 mg PO HSP PRN 08/26/17 03/20/18 History Aspirin [Aspirin 81mg EC Tab] 81 mg PO DAILY 08/26/17 03/20/18 History Citalopram Hydrobromide [Celexa] 40 mg PO DAILY 08/26/17 03/20/18 History Gabapentin [Gabapentin 300mg Cap] 300 mg PO HS 08/26/17 03/20/18 History Insulin NPH Hum/Reg Insulin Hm 40 units SQ DAILY 08/26/17 03/20/18 History [Novolin 70-30 100 Unit/ml Vial] Levothyroxine Sodium 25 mcg PO DAILY 08/26/17 03/20/18 History [Levothyroxine 25mcg (0.025mg) Tab] Lisinopril [Lisinopril 2.5mg Tab] 2.5 tab PO BID 08/26/17 03/20/18 History Carvedilol [Carvedilol 3.125mg Tab] 3.125 mg PO DAILY 03/19/18 03/19/18 History Insulin NPH Hum/Reg Insulin Hm 25 units SQ PM 03/20/18 03/20/18 History [Novolin 70-30 100 Unit/ml Vial] Zolpidem Tartrate [Ambien 5mg 5 mg PO HSP PRN 03/20/18 03/20/18 History tablet] Nicotine [Nicoderm 21mg/24hr 21 mg TD DAILYP PRN #30 patch.td24 03/22/18 Rx patch] Prescriptions/Medication Reconciliation: New Citalopram Hydrobromide [Celexa 40mg Tablet] 40 mg PO DAILY tablet Nicotine [Nicoderm 21mg/24hr patch] 21 mg TD DAILYP PRN #30 patch.td24 PRN Reason: Nicotine Cravings Continue Levothyroxine Sodium [Levothyroxine 25mcg (0.025mg) Tab] 25 mcg PO DAILY Aspirin [Aspirin 81mg EC Tab] 81 mg PO DAILY Lisinopril [Lisinopril 2.5mg Tab] 2.5 tab PO BID Insulin NPH Hum/Reg Insulin Hm [Novolin 70-30 100 Unit/ml Vial] 40 units SQ DAILY Gabapentin [Gabapentin 300mg Cap] 300 mg PO HS Citalopram Hydrobromide [Celexa] 40 mg PO DAILY ALPRAZolam [Xanax 0.5mg tab] 0.5 mg PO HSP PRN PRN Reason: Sleep Carvedilol [Carvedilol 3.125mg Tab] 3.125 mg PO DAILY Zolpidem Tartrate [Ambien 5mg tablet] 5 mg PO HSP PRN PRN Reason: Insomnia Insulin NPH Hum/Reg Insulin Hm [Novolin 70-30 100 Unit/ml Vial] 25 units SQ PM
[2018-03-22 09:27] LABS: Hemoglobin 10.1 g/dL (12.2-16.2)
== END 2018-03-22 11:11 | disposition home or self-care (01) | DRG 872 ==
LOC: ICU 16:46 → ER 16:46 → ICU 21:01 → 2ND 03-20 18:12
PROVIDERS: ADMIT Emergency Medicine; ATTEND Emergency Medicine
CPT/HCPCS: 36415; 36569; 71010; 71045; 80048; 80053; 80200; 81001; 82962; 83605; 85007; 85025; 86850; 86870; 87040; 87077; 87086; 87186; 87275; 87276; 87507; 93005; 96365; 96366; 96367; 99285; C1751; G0378; J2405; J3370; P9016

== ENCOUNTER → 2018-03-23 09:23 | Outpatient (CLI) | payer MEDICARE, MEDICAID, SELFPAY ==
[2018-03-23 10:00] VITALS: BP 98/49; PULSE 52; RESP 16; TEMP 36.3; O2SAT 96
[2018-03-23 11:15] VITALS: BP 100/48; PULSE 35; RESP 16; TEMP 36.3; O2SAT 97
--- NOTE | 2018-03-23 11:59 | PC.NURSE ---
Pt arrived for Rocephin infusion as an outpatient. Pt was hypotensive and bradycardic at time of arrival. Pt denies symptoms of dizziness, confusion. Pt received Rocephin infusion. (R) upper arm PICC drsg changed using sterile aseptic technique. Pt's vitals taken and pt's is bradycardic with a rate of 35. Placed on radiation monitor and pt is 100% ventricular paced at 35. Pt informed that she would need to be evaluated in the ED for her bradycardia as it appears that her pacemaker may not be functioning properly. Pt escorted by this documenter to the ED and report given to Julianna Silva RN. Telemetry strips faxed to ER. Pt was being attended by ED staff upon my departure from patient.
== END ==
PROVIDERS: Visit Provider Emergency Medicine
DX: C67.9 Malignant neoplasm of bladder, unspecified (principal); A40.1 Sepsis due to streptococcus, group B; A08.11 Acute gastroenteropathy due to Norwalk agent
CPT/HCPCS: 96365; G0463

== ENCOUNTER 2018-04-16 21:50 | Inpatient (IN) ==
[2018-04-16 22:32] LABS: Anion Gap 14.6 mEq/L (5-15); Blood Urea Nitrogen 38 mg/dL (7-18); Calcium 8.8 mg/dL (8.5-10.1); Carbon Dioxide 25 mmol/L (21.0-32.0); Chloride 101 mmol/L (98-107); Glucose 375 mg/dL (74-106); Potassium 3.6 mmoL/L (3.5-5.1); Sodium 137 mmol/L (136-145)
[2018-04-16 22:43] LABS: Basophils # 0.1 K/mm3 (0-0.2); Basophils % 0.8 % (0.1-2.0); Eosinophils # 0.8 K/mm3 (0.0-0.4); Eosinophils % 8.3 % (0.1-12.0); Hematocrit 31.1 % (37.0-47.0); Hemoglobin 9.8 g/dL (12.2-16.2); Lymphocytes # 2.4 K/mm3 (0.7-4.5); Lymphocytes % 25.2 % (10-50); Mean Corpuscular HGB Conc 31.4 g/dL (31.8-35.4); Mean Corpuscular Hemoglobin 28.9 pg (27.0-31.2); Mean Corpuscular Volume 92.1 fl (81-99); Mean Platelet Volume 8.7 fl (7.4-10.4); Monocytes # 0.4 K/mm3 (0.1-1.0); Monocytes % 3.6 % (1.7-9.3); Neutrophils % 62.1 % (37.0-80.0); Platelet Count 259 K/mm3 (142-424); Red Blood Count 3.38 M/mm3 (4.20-5.40); White Blood Count 9.7 K/mm3 (4.8-10.8)
--- NOTE | 2018-04-16 22:50 | Emergency Department Note ---
ED Disposition Clinical Impression: Renal insufficiency, Obesity (BMI 30.0-34.9), Hypothyroidism (acquired), Pacemaker Cardiac arrhythmia Qualifiers: Arrhythmia type: atrial flutter Atrial flutter type: unspecified Qualified Code(s): I48.92 - Unspecified atrial flutter Diabetes mellitus Qualifiers: Diabetes mellitus type: type 1 Diabetes mellitus complication status: with unspecified complications Qualified Code(s): E10.8 - Type 1 diabetes mellitus with unspecified complications Bacterial endocarditis Qualifiers: Chronicity: acute Qualified Code(s): I33.0 - Acute and subacute infective endocarditis Disposition: Admitted As Inpatient Condition on Discharge: Good - Critical Care Critical Care Time: No Attestation: On 04/16/18, the high probability of a clinically significant, sudden or life threatening deterioration of the following system(s) required my full and direct attention, intervention and personal management. The time I documented below is in addition to time spent performing reported procedures but includes the following listed in this critical care notation. Medical Decision Making - Medical Records Medical records reviewed: Yes: I reviewed the patient's medical records. - [place] Inquiry Pt receiving controlled substance: No Vital Signs: 04/16/18 21:50 04/16/18 22:43 04/16/18 23:10 Temperature 98.7 F Temperature Source Oral Pulse Rate [Right Brachial] 156 H 155 H 114 H Respiratory Rate 16 16 16 Blood Pressure [Right Arm] 117/71 102/72 L 91/56 L Blood Pressure Mean [Right Arm] 86 82 67 Blood Pressure Source [Right Arm] Automatic Cuff Manual Cuff/ Auscultation Automatic Cuff Blood Pressure Position [Right Arm] Sitting Supine Sitting 02 Sat by Pulse Oximetry 99 99 100 Oxygen Delivery Method Room Air Room Air Room Air 04/16/18 23:30 Temperature Temperature Source Pulse Rate [Right Brachial] 106 H Respiratory Rate 16 Blood Pressure [Right Arm] 107/48 L Blood Pressure Mean [Right Arm] 67 Blood Pressure Source [Right Arm] Automatic Cuff Blood Pressure Position [Right Arm] Sitting 02 Sat by Pulse Oximetry 100 Oxygen Delivery Method Room Air - Lab Data Lab results reviewed: Yes: I reviewed the patient's lab results. Lab Results 04/16/18 22:07: WBC 9.7, RBC 3.38 L, Hgb 9.8 L, Hct 31.1 L, MCV 92.1, MCH 28.9, MCHC 31.4 L, RDW 17.0, Plt Count 259, MPV 8.7, Neut % (Auto) 62.1, Lymph % (Auto) 25.2, [place] % (Auto) 3.6, Eos % (Auto) 8.3, Baso % (Auto) 0.8, Neut # (Auto) 6.0, Lymph # (Auto) 2.4, [place] # (Auto) 0.4, Eos # (Auto) 0.8 H, Baso # (Auto) 0.1 04/16/18 22:07: Sodium 137, Potassium 3.6, Chloride 101, Carbon Dioxide 25, Anion Gap 14.6, BUN 38 H, Creatinine 1.86 H, Estimated Creat Clear 39, Estimated GFR 28 L, Est GFR ( Amer) 34 L, Glucose 375 H, Calcium 8.8, Troponin I < 0.02 Result diagrams: 04/16/18 22:07 04/16/18 22:07 Orders (Tests/Meds): ED MEDICATIONS Generic Name Dose Route Start Last Admin Trade Name Freq PRN Reason Stop Dose Admin Diltiazem HCl 100 mg/ Sodium 100 mls @ 5 mls/hr 04/16/18 23:20 04/16/18 23:19 Chloride IV 05/16/18 23:19 5 mls/hr .Q20H BIJAN Administration Protocol Sodium Chloride 10 ml 04/16/18 22:04 Saline Flush 10ml Syringe IV 05/16/18 22:03 NEEDED PRN Maintain IV Site Discontinued Medications Generic Name Dose Route Start Last Admin Trade Name Freq PRN Reason Stop Dose Admin Diltiazem HCl 10 mg 04/16/18 23:04 04/16/18 23:09 Cardizem 25mg/5ml Vial IV 04/16/18 23:05 10 mg ONCE ONE Administration ORDERS Category Date Time Status ECG Request by /Nse Stat Y 04/16/18 22:04 Ordered - ECG Data Tracing #1 Arrhythmias present: aflutter Ischemic changes: non-specific ST-T wave changes ECG compared to prior tracings: this ECG reveals significant changes - Physician Consults Physician Consulted: cesario Reason -: Pt condition Arrhythmia/Palpitations HPI - General Chief Complaint: Arrhythmia/Palpitations Stated Complaint: fast heart rate Time Seen by Provider: 04/16/18 22:00 Mode of Arrival: EMS Source of Information: Patient, EMS, Medical Record Limitations: No Limitations - History of Present Illness HPI narrative: pt with acute tacycardia at [facility] where she is getting abx daily for bacterial endocarditis -pt with no fever and has had atrial arrthymia in past MD complaint: rapid heart beat Onset (ago): hour(s) Duration: constant Severity: moderate Context: occurred during rest Arrhythmia history: other (atrial flutter ) Associated symptoms: denies other symptoms - Related Data Home Medications Medication Instructions Recorded Confirmed ALPRAZolam [Xanax 0.5mg tab] 0.5 mg PO HSP PRN 08/26/17 04/16/18 Aspirin [Aspirin 81mg EC Tab] 81 mg PO DAILY 08/26/17 04/16/18 Citalopram Hydrobromide [Celexa] 40 mg PO DAILY 08/26/17 04/16/18 Gabapentin [Gabapentin 300mg Cap] 300 mg PO HS 08/26/17 04/16/18 Insulin NPH Hum/Reg Insulin Hm 40 units SQ DAILY 08/26/17 04/16/18 [Novolin 70-30 100 Unit/ml Vial] Levothyroxine Sodium 25 mcg PO DAILY 08/26/17 04/16/18 [Levothyroxine 25mcg (0.025mg) Tab] Lisinopril [Lisinopril 2.5mg Tab] 2.5 tab PO BID 08/26/17 04/16/18 Carvedilol [Carvedilol 3.125mg Tab] 3.125 mg PO DAILY 03/19/18 04/16/18 Insulin NPH Hum/Reg Insulin Hm 25 units SQ PM 03/20/18 04/16/18 [Novolin 70-30 100 Unit/ml Vial] Zolpidem Tartrate [Ambien 5mg 5 mg PO HSP PRN 03/20/18 04/16/18 tablet] Citalopram Hydrobromide [Celexa 40 mg PO DAILY 03/23/18 04/16/18 40mg Tablet] Ceftriaxone Sodium [Rocephin 2gm 2 gm IV BID 04/16/18 04/16/18 ADV] Clopidogrel Bisulfate [Plavix 75mg 75 mg PO DAILY 04/16/18 04/16/18 Tab] Furosemide [Furosemide 20mg Tab] 20 mg PO DAILY 04/16/18 04/16/18 Gabapentin [Gabapentin 300mg Cap] 300 mg PO DAILY 04/16/18 04/16/18 Pravastatin Sodium [Pravachol] 20 mg PO DAILY 04/16/18 04/16/18 Saccharomyces Boulardii [Florastor] 250 mg PO DAILY 04/16/18 04/16/18 Previous Rx's Medication Instructions Recorded Nicotine [Nicoderm 21mg/24hr 21 mg TD DAILYP PRN #30 patch.td24 03/22/18 patch] Allergies Allergy/AdvReac Type Severity Reaction Status Date / Time No Known Allergies Allergy Verified 04/16/18 21:57 [facility] History - Hepatitis A Screen Drug use history?: No High risk sexual behaviors?: No History of sexually transmitted infection?: No Currently employed?: No Childcare worker?: No Do you have indoor plumbing?: Yes Do you have electricity?: Yes Attestation statement:: This patient has been screened for Hepatitis A risk factors. I have reviewed the patient's past medical history: Yes Medical History: Reports:: Cancer, Coronary Artery Disease, Diabetes Mellitus Type 2, Hyperlipidemia, Hypertension, Myocardial Infarction Denies:: Diabetes Mellitus Type 1, MRSA Other Surgeries: Yes: Cardiac Catheterization, Hysterectomy-Total, Open Heart Surgery Amputation: No Fractures: No - Social History Smoking Status: Current every day smoker Tobacco Type: cigarettes # Packs/Day (cigarettes): 1 Alcohol Intake: never Occupational Status: unemployed, disabled Housing: house Household Members: spouse, children, other - Psychiatric History Expresses thoughts of harming self/others: None Suicide Plan Description: No Plan Family Hx:: Cancer, Coronary Artery Disease, Diabetes ROS Obtained: Yes All systems reviewed & no additional complaints - Constitutional Constitutional: Denies fever(s) - Eyes Eyes: Denies photophobia - ENT Ears, Nose, Mouth, and Throat: Denies sore throat - Cardiovascular Cardiovascular: Denies chest pain, Reports palpitations - Respiratory Respiratory: No cough - Gastrointestinal Gastrointestingal: Denies: abdominal pain - Genitourinary Female Genitourinary: Denies hematuria - Musculoskeletal Musculoskeletal: Denies joint pain, Denies joint swelling - Integumentary/Breasts Skin/Breast: Denies rash - Neurologic Neurologic: Denies seizure-like activity Physical Exam - General General appearance: alert - Head Head exam: normocephalic - Eye Eye exam: Present: PERRL, EOMI - ENT ENT exam: Present: mucous membranes dry - Neck Neck exam: Present: trachea midline - Respiratory Respiratory exam: Present: normal lung sounds bilaterally. Absent: respiratory distress - Cardiovascular Cardiovascular exam: Present: tachycardia, systolic murmur, +S4 - Abdominal Exam Abdominal exam: Present: soft - Extremities Exam Extremities exam: Absent: calf tenderness - Neurological Exam Neurological exam: Present: alert, oriented X3, CN II-XII intact - Psychiatric Psychiatric exam: Present: normal affect - Skin Skin exam: Absent: rash
[2018-04-17 05:37] LABS: Anion Gap 13.4 mEq/L (5-15); Blood Urea Nitrogen 36 mg/dL (7-18); Calcium 8.6 mg/dL (8.5-10.1); Carbon Dioxide 24 mmol/L (21.0-32.0); Chloride 103 mmol/L (98-107); Glucose 255 mg/dL (74-106); Potassium 3.4 mmoL/L (3.5-5.1); Sodium 137 mmol/L (136-145)
[2018-04-17 05:56] LABS: Basophils # 0.1 K/mm3 (0-0.2); Basophils % 0.8 % (0.1-2.0); Eosinophils # 0.8 K/mm3 (0.0-0.4); Eosinophils % 9.8 % (0.1-12.0); Hematocrit 30.9 % (37.0-47.0); Hemoglobin 9.8 g/dL (12.2-16.2); Lymphocytes # 1.9 K/mm3 (0.7-4.5); Lymphocytes % 23.5 % (10-50); Mean Corpuscular HGB Conc 31.7 g/dL (31.8-35.4); Mean Corpuscular Hemoglobin 29.3 pg (27.0-31.2); Mean Corpuscular Volume 92.6 fl (81-99); Mean Platelet Volume 7.9 fl (7.4-10.4); Monocytes # 0.3 K/mm3 (0.1-1.0); Monocytes % 3.6 % (1.7-9.3); Neutrophils # 4.9 K/mm3 (1.8-7.8); Neutrophils % 62.3 % (37.0-80.0); Platelet Count 255 K/mm3 (142-424); Red Blood Count 3.34 M/mm3 (4.20-5.40); Red Cell Distribution Width 17.2 % (11.5-17.5); White Blood Count 7.9 K/mm3 (4.8-10.8)
--- NOTE | 2018-04-17 07:28 | Consult Report ---
History of Present Illness Consult date: 04/17/18 Requesting physician: Cosme Davis Chief complaint: Rapid heart rate Additional Medical History:: 1. DM, treated since 2006 2. History of bladder cancer with removal of bladder and hysterectomy, 2006, with placement of urostomy 3. Tobacco use 4. CAD A. Cardiac cath, 02/2015, 3 vessel disease including left main with preserved LVEF. ANGIOGRAPHIC RESULTS: 1. The left main artery has distal 70% stenosis 2. The left anterior descending artery has severe 70-80% proximal ostial stenosis followed by an additional mid vessel 50% stenosis. The LAD is a large vessel 3. The circumflex artery has an ostial 80% stenosis and then gives rise to a ramus intermedius. Distal to the ramus intermedius there is an additional 60- 70% proximal stenosis 4. The right coronary artery is a codominant vessel and has proximal 70% followed by a mid vessel 70% followed by an additional distal 60% stenosis 5. The HOPPER ventriculogram reveals preserved ejection fraction estimated at 55-65% 6. The left ventricular end-diastolic pressure mildly elevated at 20 mmHg 7. The left subclavian and left internal mammary arteries are widely patent 8. The right common femoral and right external iliac artery has calcification but no flow-limiting stenosis. 9. The proximal portion of the profunda femoris and superficial femoral artery are both normal IMPRESSION: 1. Severe three-vessel coronary artery disease including severe distal left main disease as described above 2. Preserved ejection fraction 3. Patent left subclavian and left internal mammary artery PLAN: 1. Patient requires bypass surgery 2. We will not cardiovert patient given there is ischemic cardiomyopathy and will defer to the surgeon for perioperative treatment of the atrial flutter this could likely be ischemically mediated 5. Atrial flutter with RVR, 02/2015 A. History of maze procedure during coronary artery bypass grafting. B. History of left atrial appendage clipping 6. Endocarditis, 2019 A. History of bioprosthetic mitral valve placed at the time of coronary artery bypass grafting in 2016 B. History of tricuspid valve repair 7. History of seizure A. CT of head, 02/2015, IMPRESSION: No hemorrhage. No definitive acute intracranial findings. Although there are likely chronic small vessel deep white matter ischemic changes most evident on the left. There is additional Old encephalomalacia at left cerebral hemisphere anteriorly & even more evident posteriorly. I'm suspect of old watershed ischemia in these regions, with more trouble atrophy most evident superiorly left cerebral hemisphere also noted. Recommend carotid duplex Doppler study follow-up. Note additional contrast in text. If this is patient's first seizure then a follow-up MRI with/without contrast recommended 8. Carotid artery stenosis A. 2016, >70% stenosis of LICA, <50% [place] 9. Biventricular AICD, implanted in 2016, reportedly has AICD capabilities turned off. 10. CKD, stage 3 A. Cr 1.4 with GFR 38 11. Anemia, Hgb 9-10, 04/2018 History of present illness: 57 yo WF admitted from [facility] for A. flutter with RVR. Pt denies any chest pain, pressure, tightness or SOA. She is at the [facility] to receive antibiotics through her PICC line twice daily for endocarditis of her prosthetic mitral valve. She reports being diagnosed about 3 wks ago and has been seeing Dr. Segovia at [facility] in [place], [place]. She was last seen in our office in August 2015. Atrial flutter has been rate controlled with IV Cardizem along with the patient's oral Coreg therapy. Telemetry shows ventricular pacing at 80 bpm. Troponins are returned normal overnight. Patient has remained afebrile with a normal white blood cell count. [facility] History Medical History: Reports:: Cancer (bladder), Congestive Heart Failure, Coronary Artery Disease, Diabetes Mellitus Type 2, Hyperlipidemia, Hypertension, Internal Pacemaker, Myocardial Infarction Denies:: Diabetes Mellitus Type 1, MRSA *Have you ever received a pneumonia vaccine?: No (pt unsure) *Have you received a flu vaccine this season?: Yes Other Medical History: Reports: Chemotherapy, Hypothyroidism Other Surgeries: Yes: Cardiac Catheterization, Cardiac Surgery, , Hysterectomy-Total, Open Heart Surgery, Pacemaker Amputation: No Fractures: No - *Social History Educational Level: Completed High School Smoking Status: Current every day smoker Tobacco Type: cigarettes # Packs/Day (cigarettes): 1 Alcohol Intake: never *Occupational Status:: unemployed, disabled Housing: house Household Members: spouse, children, other *Travel in the last 8 weeks: None - Psychiatric History Expresses thoughts of harming self/others: None Suicide Plan Description: No Plan Family Hx:: Cancer, Coronary Artery Disease, Diabetes, Hyperlipidemia, Hypertension, Stroke Meds Home Medications Medication Instructions Recorded Confirmed Type ALPRAZolam [Xanax 0.5mg tab] 0.5 mg PO TID PRN 08/26/17 04/17/18 History Aspirin [Aspirin 81mg EC Tab] 81 mg PO DAILY 08/26/17 04/17/18 History Gabapentin [Gabapentin 300mg Cap] 300 mg PO HS 08/26/17 04/17/18 History Levothyroxine Sodium 25 mcg PO DAILY 08/26/17 04/17/18 History [Levothyroxine 25mcg (0.025mg) Tab] Carvedilol [Carvedilol 3.125mg Tab] 3.125 mg PO DAILY 03/19/18 04/17/18 History Insulin NPH Hum/Reg Insulin Hm 10 units SQ HS 03/20/18 04/17/18 History [Novolin 70-30 100 Unit/ml Vial] Zolpidem Tartrate [Ambien 5mg 5 mg PO HSP PRN 03/20/18 04/17/18 History tablet] Nicotine [Nicoderm 21mg/24hr 21 mg TD DAILYP PRN #30 patch.td24 03/22/18 04/17/18 Rx patch] Citalopram Hydrobromide [Celexa 20 mg PO HS 03/23/18 04/17/18 History 40mg Tablet] Ceftriaxone Sodium [Rocephin 2gm 2 gm IV BID 04/16/18 04/17/18 History ADV] Clopidogrel Bisulfate [Plavix 75mg 75 mg PO DAILY 04/16/18 04/17/18 History Tab] Furosemide [Furosemide 20mg Tab] 20 mg PO DAILY 04/16/18 04/17/18 History Gabapentin [Gabapentin 300mg Cap] 300 mg PO HS 04/16/18 04/17/18 History Pravastatin Sodium [Pravachol] 20 mg PO HS 04/16/18 04/17/18 History Saccharomyces Boulardii [Florastor] 250 mg PO DAILY 04/16/18 04/17/18 History Penicillin V Potassium 250 mg PO BID 04/17/18 04/17/18 History Potassium Chloride [Micro-K 10mEq 10 meq PO DAILY 04/17/18 04/17/18 History cap] Allergies Allergy/AdvReac Type Severity Reaction Status Date / Time No Known Allergies Allergy Verified 04/17/18 02:54 Review of Systems - *Cardiovascular Reports rapid, pounding, or irregular heartbeat, Denies chest pain, Denies shortness of breath, Denies shortness of breath with activity - *Respiratory Denies cough, Denies shortness of breath, Denies shortness of breath with activity - *Gastrointestinal Denies abdominal pain, Denies loose stools - *Genitourinary Denies blood in urine - *Musculoskeletal Denies joint pain, Denies back pain - *Neurologic Denies seizure-like activity Exam Vital signs and Labs for Last 24 Hours: Temp Pulse Resp BP Pulse Ox 97.6 F 102 H 18 106/54 L 93 L 04/17/18 04:00 04/17/18 06:00 04/17/18 06:00 04/17/18 06:00 04/17/18 06:00 Laboratory Results - last 24 hr 04/16/18 22:07: WBC 9.7, RBC 3.38 L, Hgb 9.8 L, Hct 31.1 L, MCV 92.1, MCH 28.9, MCHC 31.4 L, RDW 17.0, Plt Count 259, MPV 8.7, Neut % (Auto) 62.1, Lymph % (Auto) 25.2, [place] % (Auto) 3.6, Eos % (Auto) 8.3, Baso % (Auto) 0.8, Neut # (Auto) 6.0, Lymph # (Auto) 2.4, [place] # (Auto) 0.4, Eos # (Auto) 0.8 H, Baso # (Auto) 0.1 04/16/18 22:07: Sodium 137, Potassium 3.6, Chloride 101, Carbon Dioxide 25, Anion Gap 14.6, BUN 38 H, Creatinine 1.86 H, Estimated Creat Clear 39, Estimated GFR 28 L, Est GFR ( Amer) 34 L, Glucose 375 H, Calcium 8.8, Troponin I < 0.02 04/17/18 00:00: TSH 1.87 D 04/17/18 05:10: WBC 7.9, RBC 3.34 L, Hgb 9.8 L, Hct 30.9 L, MCV 92.6, MCH 29.3, MCHC 31.7 L, RDW 17.2, Plt Count 255, MPV 7.9, Neut % (Auto) 62.3, Lymph % (Auto) 23.5, [place] % (Auto) 3.6, Eos % (Auto) 9.8, Baso % (Auto) 0.8, Neut # (Auto) 4.9, Lymph # (Auto) 1.9, [place] # (Auto) 0.3, Eos # (Auto) 0.8 H, Baso # (Auto) 0.1 04/17/18 05:10: Sodium 137, Potassium 3.4 L, Chloride 103, Carbon Dioxide 24, Anion Gap 13.4, BUN 36 H, Creatinine 1.42 H D, Estimated Creat Clear 54, Estimated GFR 38 L, Est GFR ( Amer) 46 L D, Glucose 255 H D, Calcium 8.6, Magnesium 1.6, Troponin I < 0.02 04/17/18 05:10: POC Glucose 250 H I & O for Last 24 hours: Intake & Output 04/14/18 04/15/18 04/16/18 04/17/18 11:59 11:59 11:59 11:59 Intake Total 299 / 299 Output Total 400 / 400 Balance -101 / -101 Weight 167 lb - *Routine Neck Exam Present: supple. Absent: JVD, carotid bruit - *Routine Respiratory Exam Present: CTA bilaterally. Absent: accessory muscle use, rales, rhonchi, wheezes - *Routine Cardiovascular Exam Present: RRR. Absent: murmur, gallop, rubs - *Routine Abdominal Exam Present: soft. Absent: tenderness, distended, guarding - *Routine Extremities Exam Absent: edema, calf tenderness - *Routine Neurological Exam Present: alert, oriented X3, moving all extremities Assessment and Plan (1) Atrial flutter with rapid ventricular response Current visit: Yes Status: Acute Category: Medical Code(s): I48.92 - Unspecified atrial flutter (2) Biventricular cardiac pacemaker in situ Current visit: Yes Status: Acute Category: Medical Code(s): Z95.0 - Presence of cardiac pacemaker (3) Bacterial endocarditis Current visit: Yes Status: Acute Qualifiers: Chronicity: acute Qualified Code(s): I33.0 - Acute and subacute infective endocarditis Category: Medical Code(s): I33.0 - Acute and subacute infective endocarditis (4) Diabetes mellitus Current visit: Yes Status: Acute Qualifiers: Diabetes mellitus type: type 1 Diabetes mellitus complication status: with unspecified complications Qualified Code(s): E10.8 - Type 1 diabetes mellitus with unspecified complications Category: Medical Code(s): E11.9 - Type 2 diabetes mellitus without complications (5) Obesity (BMI 30.0-34.9) Current visit: Yes Status: Acute Category: Medical Code(s): E66.9 - Obesity, unspecified (6) CAD (coronary artery disease) Current visit: No Status: Acute Category: Medical Code(s): I25.10 - Atherosclerotic heart disease of [place] coronary artery without angina pectoris (7) Ileostomy in place Current visit: No Status: Acute Category: Medical Code(s): Z93.2 - Ileostomy status (8) Tobacco use Current visit: No Status: Acute Category: Medical Code(s): Z72.0 - Tobacco use (9) History of coronary artery bypass graft Current visit: Yes Status: Acute Category: Surgical Code(s): Z95.1 - Presence of aortocoronary bypass graft - Assessment and plan all Dx Assessment and Plan for all problems:: 1. Echo performed this AM. See official results but LVEF about 50% with prosthetic mitral valve functioning appropriately. No mobile vegetation seen. 2. Switch IV Cardizem to Cardizem CD 120 mg Daily and continue coreg but increase to 6.25 mg BID. 3. AICD interrogated today. No alerts noted. Ventricular pacing at 80%. Therapy for VF is on but VT therapy is off due to history of Atrial Tachycardia at 1:1 conduction in the VT zone. 4. Patient could be discharged home later today. 5. 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
--- NOTE | 2018-04-17 07:39 | Pharmacy Consult Notes ---
[facility] Pharmacy VTE Monitoring - Patient Demographics Admission date: 04/16/18 Report Date: 04/17/18 Time: 07:39 Allergies/Adverse Reactions: Patient Allergies No Known Allergies Allergy (Verified 04/17/18 02:54) Height: 1.57 m Weight: 75.75 kg Patient Problems: Current Active Problems Renal insufficiency (Acute) Diabetes mellitus (Acute) Pacemaker (Acute) Obesity (BMI 30.0-34.9) (Acute) Hypothyroidism (acquired) (Acute) Cardiac arrhythmia (Acute) Bacterial endocarditis (Acute) - VTE Risk Labs: VTE Related Lab Results Hgb 9.8 g/dL (12.2-16.2) L 04/17/18 05:10 Hct 30.9 % (37.0-47.0) L 04/17/18 05:10 Plt Count 255 K/mm3 (142-424) 04/17/18 05:10 BUN 36 mg/dL (7-18) H 04/17/18 05:10 Creatinine 1.42 mg/dL (0.55-1.02) H D 04/17/18 05:10 Estimated Creat Clear 54 mL/min (50-200) 04/17/18 05:10 VTE Risk Level: Low Risk - Prophylaxis VTE Prophylaxis Ordered?: Yes Types of VTE Prophylaxis: TEDS Knee High Location of Applied Device: Bilateral Lower Extremeties - VTE Diagnosis Confirmed Treatment or plan recommended: Continue Current Treatment
--- NOTE | 2018-04-17 11:35 | H&P/Discharge Summary ---
General - General Admission date:: 04/17/18 Discharge date: 04/17/18 *Admission Date: 04/16/18 *Chief complaint: palpitations *History of present illness: 57 yo WF admitted from [facility] for A. flutter with RVR. Pt denies any chest pain, pressure, tightness or SOA. 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 She reports being diagnosed about 3 wks ago and has been seeing Dr. Segovia at [facility] in [place], [place]. She was last seen in our office in August 2015. Atrial flutter has been rate controlled with IV Cardizem along with the patient's oral Coreg therapy. Telemetry shows ventricular pacing at 80 bpm. Troponins are returned normal overnight. Patient has remained afebrile with a normal white blood cell count. [facility] History I have reviewed the patient's past medical history: Yes Medical History: Reports:: Cancer (bladder), Congestive Heart Failure, Coronary Artery Disease, Diabetes Mellitus Type 2, Hyperlipidemia, Hypertension, Internal Pacemaker, Myocardial Infarction Denies:: Diabetes Mellitus Type 1, MRSA *Have you ever received a pneumonia vaccine?: No (pt unsure) *Have you received a flu vaccine this season?: Yes Other Medical History: Reports: Chemotherapy, Hypothyroidism Other Surgeries: Yes: Cardiac Catheterization, Cardiac Surgery, , Hysterectomy-Total, Open Heart Surgery, Pacemaker Amputation: No Fractures: No - *Social History Educational Level: Completed High School Smoking Status: Current every day smoker Tobacco Type: cigarettes # Packs/Day (cigarettes): 1 Alcohol Intake: never *Occupational Status:: unemployed, disabled Housing: house Household Members: spouse, children, other *Travel in the last 8 weeks: None - Psychiatric History Expresses thoughts of harming self/others: None Suicide Plan Description: No Plan Family Hx:: Cancer, Coronary Artery Disease, Diabetes, Hyperlipidemia, Hypertension, Stroke Review of Systems - Review of Systems Review of systems:: pertinent systems reviewed and negative unless documented below - Constitutional Denies fever(s) - Eyes Denies floaters - ENT Denies change in voice - *Cardiovascular Reports rapid, pounding, or irregular heartbeat, Denies shortness of breath - *Respiratory Denies coughing up blood - *Gastrointestinal Denies constipation - *Genitourinary Denies heavy periods - *Musculoskeletal Denies loss of height - Integumentary/Breasts Denies rash - *Neurologic Denies loss of vision, Denies seizure-like activity - Psychiatric Denies lack of enjoyment - Endocrine Denies flushing - Hematologic/Lymphatic Denies enlarged lymph nodes - Allergic/Immunologic Denies tongue swelling Exam Vital signs and Labs for Last 24 Hours: Temp Pulse Resp BP Pulse Ox 97.0 F L 87 16 91/55 L 98 04/17/18 08:00 04/17/18 10:00 04/17/18 10:00 04/17/18 10:00 04/17/18 10:00 Laboratory Results - last 24 hr 04/16/18 22:07: WBC 9.7, RBC 3.38 L, Hgb 9.8 L, Hct 31.1 L, MCV 92.1, MCH 28.9, MCHC 31.4 L, RDW 17.0, Plt Count 259, MPV 8.7, Neut % (Auto) 62.1, Lymph % (Auto) 25.2, [place] % (Auto) 3.6, Eos % (Auto) 8.3, Baso % (Auto) 0.8, Neut # (Auto) 6.0, Lymph # (Auto) 2.4, [place] # (Auto) 0.4, Eos # (Auto) 0.8 H, Baso # (Auto) 0.1 04/16/18 22:07: Sodium 137, Potassium 3.6, Chloride 101, Carbon Dioxide 25, Anion Gap 14.6, BUN 38 H, Creatinine 1.86 H, Estimated Creat Clear 39, Estimated GFR 28 L, Est GFR ( Amer) 34 L, Glucose 375 H, Calcium 8.8, Troponin I < 0.02 04/17/18 00:00: TSH 1.87 D 04/17/18 05:10: WBC 7.9, RBC 3.34 L, Hgb 9.8 L, Hct 30.9 L, MCV 92.6, MCH 29.3, MCHC 31.7 L, RDW 17.2, Plt Count 255, MPV 7.9, Neut % (Auto) 62.3, Lymph % (Auto) 23.5, [place] % (Auto) 3.6, Eos % (Auto) 9.8, Baso % (Auto) 0.8, Neut # (Auto) 4.9, Lymph # (Auto) 1.9, [place] # (Auto) 0.3, Eos # (Auto) 0.8 H, Baso # (Auto) 0.1 04/17/18 05:10: Sodium 137, Potassium 3.4 L, Chloride 103, Carbon Dioxide 24, Anion Gap 13.4, BUN 36 H, Creatinine 1.42 H D, Estimated Creat Clear 54, Estimated GFR 38 L, Est GFR ( Amer) 46 L D, Glucose 255 H D, Calcium 8.6, Magnesium 1.6, Troponin I < 0.02 04/17/18 05:10: POC Glucose 250 H 04/17/18 07:35: Troponin I < 0.02 I & O for Last 24 hours: Intake & Output 04/14/18 04/15/18 04/16/18 04/17/18 11:59 11:59 11:59 11:59 Intake Total 539 / 539 Output Total 400 / 400 Balance 139 / 139 Weight 167 lb - Constitutional no acute distress - *Routine HEENT Exam Head: Present: normocephalic Eye: Present: EOMI, PERRL ENT: Present: mucous membranes moist - *Routine Neck Exam Present: supple. Absent: lymphadenopathy - *Routine Respiratory Exam Present: CTA bilaterally - *Routine Cardiovascular Exam Present: RRR - *Routine Abdominal Exam Present: soft, normoactive bowel sounds. Absent: tenderness - *Routine Extremities Exam Absent: cyanosis, clubbing, edema - *Routine Skin Exam Present: warm. Absent: rash - *Routine Neurological Exam Present: alert, oriented X3 Hospital Course Hospital Course: converted on iv cardiazem cardiology consult paced rhythm denies pain ot palpitations pt requesting to be dc home Results Labs on day of discharge: Labs from last 24 hours 04/17/18 04/17/18 04/17/18 07:35 05:10 05:10 WBC RBC Hgb Hct MCV MCH MCHC RDW Plt Count MPV Neut % (Auto) Lymph % (Auto) [place] % (Auto) Eos % (Auto) Baso % (Auto) Neut # (Auto) Lymph # (Auto) [place] # (Auto) Eos # (Auto) Baso # (Auto) Sodium 137 Potassium 3.4 L Chloride 103 Carbon Dioxide 24 Anion Gap 13.4 BUN 36 H Creatinine 1.42 H D Estimated Creat Clear 54 Estimated GFR 38 L Est GFR ( Amer) 46 L D Glucose 255 H D POC Glucose 250 H Calcium 8.6 Magnesium 1.6 Troponin I < 0.02 < 0.02 TSH 04/17/18 04/17/18 04/16/18 05:10 00:00 22:07 WBC 7.9 RBC 3.34 L Hgb 9.8 L Hct 30.9 L MCV 92.6 MCH 29.3 MCHC 31.7 L RDW 17.2 Plt Count 255 MPV 7.9 Neut % (Auto) 62.3 Lymph % (Auto) 23.5 [place] % (Auto) 3.6 Eos % (Auto) 9.8 Baso % (Auto) 0.8 Neut # (Auto) 4.9 Lymph # (Auto) 1.9 [place] # (Auto) 0.3 Eos # (Auto) 0.8 H Baso # (Auto) 0.1 Sodium 137 Potassium 3.6 Chloride 101 Carbon Dioxide 25 Anion Gap 14.6 BUN 38 H Creatinine 1.86 H Estimated Creat Clear 39 Estimated GFR 28 L Est GFR ( Amer) 34 L Glucose 375 H POC Glucose Calcium 8.8 Magnesium Troponin I < 0.02 TSH 1.87 D 04/16/18 22:07 WBC 9.7 RBC 3.38 L Hgb 9.8 L Hct 31.1 L MCV 92.1 MCH 28.9 MCHC 31.4 L RDW 17.0 Plt Count 259 MPV 8.7 Neut % (Auto) 62.1 Lymph % (Auto) 25.2 [place] % (Auto) 3.6 Eos % (Auto) 8.3 Baso % (Auto) 0.8 Neut # (Auto) 6.0 Lymph # (Auto) 2.4 [place] # (Auto) 0.4 Eos # (Auto) 0.8 H Baso # (Auto) 0.1 Sodium Potassium Chloride Carbon Dioxide Anion Gap BUN Creatinine Estimated Creat Clear Estimated GFR Est GFR ( Amer) Glucose POC Glucose Calcium Magnesium Troponin I TSH - Additional Comments rounded with kwame all orders per kwame DS: Diagnosis - Discharge Diagnosis (1) Atrial flutter with rapid ventricular response Status: Acute (2) Biventricular cardiac pacemaker in situ Status: Acute (3) Bacterial endocarditis Status: Acute (4) Diabetes mellitus Status: Acute (5) Obesity (BMI 30.0-34.9) Status: Acute (6) CAD (coronary artery disease) Status: Acute (7) Ileostomy in place Status: Acute (8) Tobacco use Status: Acute (9) History of coronary artery bypass graft Status: Acute Discharge Medications - Medications for Discharge Home Medication List at Discharge: No Action Levothyroxine Sodium [Levothyroxine 25mcg (0.025mg) Tab] 25 mcg PO DAILY Aspirin [Aspirin 81mg EC Tab] 81 mg PO DAILY ALPRAZolam [Xanax 0.5mg tab] 0.5 mg PO TID PRN PRN Reason: Anxiety Carvedilol [Carvedilol 3.125mg Tab] 3.125 mg PO DAILY Zolpidem Tartrate [Ambien 5mg tablet] 5 mg PO HSP PRN PRN Reason: Insomnia Insulin NPH Hum/Reg Insulin Hm [Novolin 70-30 100 Unit/ml Vial] 10 units SQ HS Citalopram Hydrobromide [Celexa 40mg Tablet] 20 mg PO HS Furosemide [Furosemide 20mg Tab] 20 mg PO DAILY Saccharomyces Boulardii [Florastor] 250 mg PO DAILY Pravastatin Sodium [Pravachol] 20 mg PO HS Gabapentin [Gabapentin 300mg Cap] 300 mg PO HS Ceftriaxone Sodium [Rocephin 2gm ADV] 2 gm IV BID Nicotine [Nicoderm 21mg/24hr patch] 21 mg TD DAILYP PRN #30 patch.td24 PRN Reason: Nicotine Cravings Clopidogrel Bisulfate [Plavix 75mg Tab] 75 mg PO DAILY Potassium Chloride [Micro-K 10mEq cap] 10 meq PO DAILY Penicillin V Potassium [PenVK 250mg tablet] 250 mg PO BID Disposition Disposition: Home, Self-Care
--- NOTE | 2018-04-17 17:17 | Cardiology Report ---
PROCEDURE: 2-D M-mode and color Doppler study INDICATIONS FOR THE TEST: Chest pain COPDX Heart Murmur Tobacco SmokingX PalpitationsX Fatigue Syncope Edema Hypertension Diabetes MellitusX Rheumatic Fever SOBXDOE ObesityXHyperlipidemiaX Family History HD Additional History CABG,MVR, BACTERIAL ENDOCARDITIS PATIENT INFORMATION HEIGHT:61 WEIGHT:160 GENDER: Female B/P:91/56 2-D/M-MODE INTERPRETATION: 2-D MEASUREMENTS OBSERVED VALUES IN CMS Right Ventricular Dimension (RVDd) 2.1 Interventricular Septum (Thickness)(IVsd) .9 Left Ventricular Internal Dimensions(LVIDd) 5.3 Left Ventricular Posterior Wall (Thickness)(LVPWd) 1.0 Aortic Root 2.5 Aortic Cusp Separation 1.4 Left Atrial Dimensions (LAD) 4.7 2D 1. Left atrium is moderately enlarged, left ventricle is normal size, mild qualitative concentric left ventricular hypertrophy, visually estimated ejection fraction approximately 50%, inferobasal wall appears to be moderately hypokinetic. 2. The right atrium and right ventricle are mildly enlarged with normal contractility, there is a catheter noted in the right atrium and right ventricle which is likely an AICD lead. 3. The aortic valve is thickened leaflet continue to display good mobility. 4. There is mild prosthetic valve noted in the mitral position, leaflets are not well visualized. 5. The tricuspid valve and pulmonic valve are not well visualized. 6. No significant pericardial effusion noted. DOPPLER INTERROGATION: 1. The aortic out flow velocity within normal range, there is no aortic stenosis aortic insufficiency. 2. The maximum mitral inflow velocity across the prosthetic valve is 2.5 m/s, resulting in a mean gradient across valve of 8mmHg, valve area is 2.7 sq cm by pressure half time does not represent any significant mitral inflow obstruction. There is no significant mitral regurgitation seen. 3. There is mild tricuspid regurgitation seen, calculated right ventricular systolic pressure is 46 mmHg consistent with moderate pulmonary hypertension. CONCLUSION: 1. Moderately enlarged left atrium, normal left ventricular size, mild concentric left ventricular hypertrophy, visually estimated ejection fraction approximately 50% with segmental wall motion abnormality described above. 2. Mild prosthetic valve in the mitral position, mean gradient across valve is 8 mmHg, calculated valve area is 2.7 sq cm does not represent significant mitral inflow obstruction, there is no significant mitral regurgitation seen. 3. A catheter noted in the right atrium and right ventricle which is likely an AICD lead. 4. Mild tricuspid regurgitation, calculated right ventricular systolic pressure is 46 mmHg consistent with moderate pulmonary hypertension. 5. No significant pericardial effusion noted. 6. The clinically indicated transesophageal echocardiogram has better sensitivity for detecting valvular vegetations.
== END 2018-04-17 12:32 | disposition home or self-care (01) | DRG 308 ==
LOC: ER 21:50 → 2ND 23:58
PROVIDERS: ADMIT Emergency Medicine; ATTEND Emergency Medicine

== ENCOUNTER → 2018-04-17 21:11 | Outpatient (CLI) | payer MEDICARE, MEDICAID, SELFPAY ==
[2018-04-17 21:37] VITALS: BMI 30.2
[2018-04-17 21:46] VITALS: BP 112/62; PULSE 89; RESP 19; TEMP 36.7; O2SAT 98
--- NOTE | 2018-04-17 21:50 | PC.NURSE ---
PT CAME INTO ER ADMISSION STATING SHE NEEDS TO CONTINUE HER THERAPY,SHE HAD NO ORDERS AND WAS CONCERNED ABOUT HER THERAPY. SHE DIDNOT KNOW EXACTLY WHAT THERAPY WAS NEEDED. I SPOKE WITH DR DAWKINS AND HE REQUESTED THAT I CHECK HER DISCHARGE ORDERS AND TO SPEAK WITH YESY REDDY.I DID THIS AND YESY CREATED CONFERENCE CALL INCLUDING PERSONNEL FROM [facility]. PT WAS RECEIVING ROCEPHIN 2 GMS IV AT [facility] AND ALSO PT AT [facility] EARLIER TODAY. DID ORDER ONE TIME ORDER FOR ROCEPHIN 2 GMIV TONIGHT AND TO CHECK WITH YESY IN AM. I ALSO SPOKE WITH PHARMACIST MARIELA CASTANEDA ABOUT PT MED AND HE STATED TO RUN ROCEPHIN 2GM IV AT 100 ML AN HOUR.
[2018-04-17 22:35] VITALS: BP 116/62; PULSE 88; RESP 20; O2SAT 99
== END ==
PROVIDERS: PCP Emergency Medicine; Visit Provider Emergency Medicine
DX: I33.0 Acute and subacute infective endocarditis (principal)
CPT/HCPCS: 96365; G0463

== ENCOUNTER → 2018-04-18 09:09 | Outpatient (CLI) | payer MEDICARE, MEDICAID, SELFPAY ==
[2018-04-18 09:30] VITALS: BP 93/50; PULSE 81; RESP 18; TEMP 36.3; O2SAT 96
[2018-04-18 10:20] VITALS: BP 100/60; PULSE 77; RESP 18
[2018-04-18 21:51] VITALS: BP 105/63; PULSE 91; RESP 18; TEMP 36.5; O2SAT 99
== END ==
PROVIDERS: Visit Provider Internal Medicine
DX: I33.0 Acute and subacute infective endocarditis (principal)
CPT/HCPCS: 96365; G0463

== ENCOUNTER → 2018-04-19 09:00 | Outpatient (CLI) | payer MEDICARE, MEDICAID, SELFPAY ==
[2018-04-19 10:30] VITALS: BP 141/62; PULSE 78; RESP 18; TEMP 36.6; O2SAT 97
[2018-04-19 21:00] VITALS: BP 103/61; PULSE 73; RESP 15; TEMP 36.9; O2SAT 98; BMI 32.1
[2018-04-19 21:35] VITALS: BP 105/54; PULSE 71; O2SAT 100
== END ==
PROVIDERS: PCP Emergency Medicine; Visit Provider Internal Medicine
DX: I33.0 Acute and subacute infective endocarditis (principal)
CPT/HCPCS: 96365; G0463

== ENCOUNTER → 2018-04-20 08:07 | Outpatient (CLI) | payer MEDICARE, MEDICAID, SELFPAY ==
[2018-04-20 08:15] VITALS: BP 99/51; PULSE 79; RESP 20; TEMP 36.6; O2SAT 93
[2018-04-20 09:05] VITALS: BP 90/54; PULSE 74; RESP 20; TEMP 36.5; O2SAT 96
[2018-04-20 21:55] VITALS: BP 136/59; PULSE 68; RESP 15; TEMP 36.8; O2SAT 96
== END ==
PROVIDERS: PCP Emergency Medicine; Visit Provider Internal Medicine
DX: I33.0 Acute and subacute infective endocarditis (principal)
CPT/HCPCS: 96365; G0463

== ENCOUNTER 2018-04-21 09:12 | Outpatient (CLI) | payer MEDICARE, MEDICAID, SELFPAY ==
[2018-04-21 09:37] VITALS: BP 92/60; PULSE 69; RESP 18; TEMP 36.2; O2SAT 97
[2018-04-21 10:00] VITALS: BP 111/60; PULSE 70; RESP 18
[2018-04-21 10:20] VITALS: BP 120/67; PULSE 75; RESP 18; O2SAT 95
[2018-04-21 21:25] VITALS: BP 122/60; PULSE 79; RESP 17; TEMP 36.9; O2SAT 94
[2018-04-21 21:30] VITALS: BMI 30.2
[2018-04-21 22:00] VITALS: BP 122/61; PULSE 81; RESP 17; TEMP 36.9; O2SAT 92
== END 2018-04-21 22:00 | disposition home or self-care (01) ==
LOC: INF 09:12
PROVIDERS: Visit Provider Internal Medicine
DX: I33.0 Acute and subacute infective endocarditis (principal)
CPT/HCPCS: 96365; G0463

== ENCOUNTER → 2018-04-22 09:31 | Outpatient (CLI) | payer MEDICARE, MEDICAID, SELFPAY ==
[2018-04-22 09:37] VITALS: BP 94/54; PULSE 70; RESP 18; TEMP 36.6; O2SAT 98
[2018-04-22 10:07] VITALS: BP 98/57; PULSE 72; RESP 18; O2SAT 97
[2018-04-22 10:25] VITALS: BP 101/52; PULSE 70; RESP 18; O2SAT 97
[2018-04-22 21:45] VITALS: BP 134/60; PULSE 80; RESP 18; TEMP 36.8; O2SAT 100
== END ==
PROVIDERS: Visit Provider Internal Medicine
DX: I33.0 Acute and subacute infective endocarditis (principal)
CPT/HCPCS: 96365

== ENCOUNTER → 2018-04-23 08:35 | Outpatient (CLI) | payer MEDICARE, MEDICAID, SELFPAY ==
[2018-04-23 08:59] VITALS: BP 89/52; PULSE 70; RESP 18; TEMP 36.5; O2SAT 100
[2018-04-23 09:29] VITALS: BP 94/55; PULSE 69; RESP 18; O2SAT 99
[2018-04-23 09:40] VITALS: BP 100/58; PULSE 67; RESP 18; O2SAT 99
[2018-04-23 22:01] VITALS: BP 135/78; PULSE 96; RESP 16; TEMP 36.9; O2SAT 95
[2018-04-23 22:21] VITALS: BP 131/56; PULSE 83; RESP 16; TEMP 36.7; O2SAT 96
[2018-04-23 22:37] VITALS: BP 127/52; PULSE 82; RESP 16; TEMP 36.9; O2SAT 97
== END ==
PROVIDERS: Visit Provider Internal Medicine
DX: I33.0 Acute and subacute infective endocarditis (principal); E11.9 Type 2 diabetes mellitus without complications; Z79.4 Long term (current) use of insulin; E78.5 Hyperlipidemia, unspecified; I10 Essential (primary) hypertension
CPT/HCPCS: 80053; 80061; 82652; 83036; 84436; 84443; 85025; 96365; G0463

== ENCOUNTER → 2018-04-23 16:47 | Outpatient (CLI) | payer MEDICARE, MEDICAID, SELFPAY ==
[2018-04-23 17:26] LABS: Basophils # 0.1 K/mm3 (0-0.2); Basophils % 0.8 % (0.1-2.0); Eosinophils # 0.4 K/mm3 (0.0-0.4); Hematocrit 31.4 % (37.0-47.0); Lymphocytes # 1.6 K/mm3 (0.7-4.5); Lymphocytes % 21.3 % (10-50); Mean Corpuscular HGB Conc 31.7 g/dL (31.8-35.4); Mean Corpuscular Hemoglobin 30.1 pg (27.0-31.2); Mean Corpuscular Volume 94.9 fl (81-99); Mean Platelet Volume 7.8 fl (7.4-10.4); Monocytes # 0.4 K/mm3 (0.1-1.0); Monocytes % 4.7 % (1.7-9.3); Neutrophils % 67.2 % (37.0-80.0); Platelet Count 362 K/mm3 (142-424); Red Blood Count 3.31 M/mm3 (4.20-5.40); Red Cell Distribution Width 18.5 % (11.5-17.5); White Blood Count 7.4 K/mm3 (4.8-10.8)
[2018-04-23 17:57] LABS: Alanine Aminotransferase 21 U/L (12-78); Albumin Level 3.1 gm/dL (3.4-5.0); Albumin/Globulin Ratio 0.8 (1.1-1.8); Alkaline Phosphatase 130 U/L (46-116); Anion Gap 16.1 mEq/L (5-15); Aspartate Amino Transferase 16 U/L (15-37); Bilirubin,Total 0.2 mg/dL (0.2-1.0); Blood Urea Nitrogen 20 mg/dL (7-18); Calcium 8.9 mg/dL (8.5-10.1); Carbon Dioxide 25 mmol/L (21.0-32.0); Chloride 103 mmol/L (98-107); Cholesterol 185 mg/dL (140-200); Creatinine,Serum 1.21 mg/dL (0.55-1.02); Estimated Glomerular Filt Rate 46 ml/min (>60); GFR (African American) 56 ML/MIN (>60); Globulin 4.1 gm/dl (1.3-3.2); Glucose 210 mg/dL (74-106); HDL Cholesterol 23 mg/dL (29-89); LDL Cholesterol 109 mg/dL (0-130); Potassium 4.1 mmoL/L (3.5-5.1); Sodium 140 mmol/L (136-145); T4 (Thyroxine) 7.3 ug/dl (4.7-13.3); Thyroid Stimulating Hormone 2.85 uIU/ml (0.358-3.740); Total Protein,Serum 7.2 gm/dL (6.4-8.2); Triglycerides 266 mg/dL (30-200); VLDL Cholesterol 53 mg/dL (0-40)
[2018-04-23 19:53] LABS: Hemoglobin A1C 8.2 % (0.0-7.0)
[2018-04-26 03:44] LABS: Vitamin D 25 Hydroxy 22.9 ng/mL (30.0-100.0)
== END ==
PROVIDERS: Visit Provider Physician Assistant
DX: E03.9 Hypothyroidism, unspecified (principal); E11.9 Type 2 diabetes mellitus without complications; L02.91 Cutaneous abscess, unspecified
CPT/HCPCS: 80053; 80061; 82652; 83036; 84436; 84443; 85025

== ENCOUNTER → 2018-04-24 08:38 | Outpatient (CLI) | payer MEDICARE, MEDICAID, SELFPAY ==
[2018-04-26 03:45] LABS: Microalbumin, Urine 72.2 ug/mL (Not Estab.)
== END ==
PROVIDERS: Visit Provider Physician Assistant
DX: E11.9 Type 2 diabetes mellitus without complications (principal); Z79.4 Long term (current) use of insulin
CPT/HCPCS: 82043

== ENCOUNTER → 2018-04-24 08:50 | Outpatient (CLI) | payer MEDICARE, MEDICAID, SELFPAY ==
[2018-04-24 08:50] VITALS: BMI 30.2
[2018-04-24 09:10] VITALS: BP 103/54; PULSE 70; RESP 18; TEMP 36.9; O2SAT 97
[2018-04-24 09:30] VITALS: BP 101/56; PULSE 69; RESP 18; TEMP 36.9; O2SAT 97
[2018-04-24 09:43] VITALS: BP 104/55; PULSE 71; RESP 18; TEMP 36.9; O2SAT 98
== END ==
PROVIDERS: Visit Provider Internal Medicine
DX: I33.0 Acute and subacute infective endocarditis (principal); T82.6XXA 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, initial encounter
CPT/HCPCS: 82043; 96365

== ENCOUNTER 2018-04-25 08:50 | Outpatient (CLI) | payer MEDICARE, MEDICAID, SELFPAY ==
[2018-04-24 21:50] VITALS: BP 127/62; PULSE 76; RESP 18; TEMP 36.9; O2SAT 95
[2018-04-24 22:20] VITALS: BP 148/70; PULSE 72; RESP 18; TEMP 36.9; O2SAT 96
[2018-04-25 09:20] VITALS: BP 103/43; PULSE 69; RESP 16; O2SAT 99
[2018-04-25 10:00] VITALS: BP 118/57; PULSE 69; RESP 16
[2018-04-25 21:40] VITALS: BP 126/47; PULSE 78; RESP 17; TEMP 37.1; O2SAT 99; BMI 30.2
[2018-04-25 22:14] VITALS: BP 117/57; PULSE 75; RESP 17; TEMP 36.4; O2SAT 100
[2018-04-25 22:16] VITALS: BP 117/57; PULSE 75; RESP 17; TEMP 36.4; O2SAT 100
== END 2018-04-25 22:15 | disposition home or self-care (01) ==
LOC: INF 08:56
PROVIDERS: Visit Provider Internal Medicine
DX: I33.0 Acute and subacute infective endocarditis (principal); T82.6XXA 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, initial encounter
CPT/HCPCS: 96365; G0463

== ENCOUNTER 2018-04-26 08:30 | Outpatient (CLI) | payer MEDICARE, MEDICAID, SELFPAY ==
[2018-04-26 08:59] VITALS: BP 96/55; PULSE 70; RESP 16; TEMP 36.2; O2SAT 100
[2018-04-26 09:40] VITALS: BP 105/60; PULSE 70; RESP 16; O2SAT 100
[2018-04-26 20:47] VITALS: BP 131/78; PULSE 86; RESP 18; TEMP 36.5; O2SAT 100; BMI 30.2
[2018-04-26 21:50] VITALS: BP 142/66; PULSE 78; RESP 17; TEMP 36.7; O2SAT 99
== END 2018-04-26 21:50 | disposition home or self-care (01) ==
LOC: INF 08:31
PROVIDERS: PCP Emergency Medicine; Visit Provider Internal Medicine
DX: I33.0 Acute and subacute infective endocarditis (principal); T82.6XXA 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, initial encounter
CPT/HCPCS: 96365

== ENCOUNTER → 2018-04-27 09:33 | Outpatient (CLI) | payer MEDICARE, MEDICAID, SELFPAY ==
[2018-04-27 09:36] VITALS: BMI 30.2
[2018-04-27 09:48] VITALS: BP 97/48; PULSE 70; RESP 17; O2SAT 98
[2018-04-27 21:05] VITALS: BP 124/68; PULSE 81; RESP 20; TEMP 36.7; O2SAT 100
[2018-04-27 21:40] VITALS: BP 130/72; PULSE 73; RESP 20; TEMP 36.4; O2SAT 97
--- NOTE | 2018-04-27 21:45 | PC.NURSE ---
PT AMBULATED WELL INDEPENDENTLY [facility] PICC LINE WAS FLUSHED PRIOR TO AND AFTER IV ABX ADMINISTRATION, PATENT. DRESSING CDI, NO S/S OF INFECTION. CALL LIGHT WAS PROVIDED AND INSTRUCTED USE OF CALL LIGHT PRN. PT STATED I WILL JUST WATCH A LITTLE TV. I SHOULD BE GOOD. TOLERATED ADMINISTRATION WELL. PT [facility] AT 2140.
== END ==
PROVIDERS: PCP Emergency Medicine; Visit Provider Internal Medicine
DX: I33.0 Acute and subacute infective endocarditis (principal); T82.6XXA 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, initial encounter
CPT/HCPCS: 96365; G0463

== ENCOUNTER → 2018-04-28 08:55 | Outpatient (CLI) | payer MEDICARE, MEDICAID, SELFPAY ==
[2018-04-28 09:05] VITALS: BP 102/60; PULSE 69; RESP 20; TEMP 36.8; O2SAT 97
[2018-04-28 09:45] VITALS: BP 105/55; PULSE 70; RESP 18; TEMP 36.8; O2SAT 98
[2018-04-28 21:15] VITALS: BP 133/62; PULSE 77; RESP 16; TEMP 36.8; O2SAT 98
[2018-04-28 21:35] VITALS: BP 131/71; PULSE 74; RESP 16; TEMP 36.9
[2018-04-28 21:45] VITALS: BP 132/68; PULSE 75; RESP 16; TEMP 36.9; O2SAT 98
== END ==
PROVIDERS: Visit Provider Internal Medicine
DX: I33.0 Acute and subacute infective endocarditis (principal); T82.6XXA 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, initial encounter
CPT/HCPCS: 96365; G0463

== ENCOUNTER → 2018-04-29 09:19 | Outpatient (CLI) | payer MEDICARE, MEDICAID, SELFPAY ==
[2018-04-29 09:30] VITALS: BP 95/55; PULSE 69; RESP 18; TEMP 36.8
[2018-04-29 10:00] VITALS: BP 119/60; PULSE 69; RESP 18
[2018-04-29 10:20] VITALS: BP 131/65; PULSE 67; RESP 18
[2018-04-29 21:11] VITALS: BP 127/67; PULSE 90; RESP 17; TEMP 36.8; O2SAT 95
--- NOTE | 2018-04-29 21:11 | PC.NURSE ---
PT ARRIVED FOR SCHEDULED INFUSION PT ALERT AND ORIENTED. [facility] INFUSION STARTED AT THIS TIME
[2018-04-29 21:48] VITALS: BP 113/56; PULSE 80; RESP 18; TEMP 37; O2SAT 95
--- NOTE | 2018-04-29 21:48 | PC.NURSE ---
INFUSION COMPLETE PT DISCHARGED [facility] AMBULATORY OFF UNIT
[2018-04-30 21:17] VITALS: BMI 30.9
[2018-04-30 21:19] VITALS: BP 115/54; PULSE 80; RESP 19; TEMP 36.5; O2SAT 100
== END ==
PROVIDERS: Visit Provider Internal Medicine
DX: I33.0 Acute and subacute infective endocarditis (principal); T82.6XXA 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, initial encounter
CPT/HCPCS: 96365

== ENCOUNTER → 2018-04-30 08:40 | Outpatient (CLI) | payer MEDICARE, MEDICAID, SELFPAY ==
[2018-04-30 09:06] VITALS: BMI 30.9
[2018-04-30 09:20] VITALS: BP 115/59; PULSE 70; RESP 18; TEMP 36.6; O2SAT 98
[2018-04-30 09:50] VITALS: BP 124/55; PULSE 69; RESP 18
[2018-04-30 10:05] VITALS: BP 136/94; PULSE 69
[2018-04-30 20:20] VITALS: BP 115/54; PULSE 80; RESP 18; TEMP 36.5; O2SAT 100
[2018-04-30 21:50] VITALS: BP 117/53; PULSE 74; RESP 18; TEMP 36.6; O2SAT 98
== END ==
PROVIDERS: Visit Provider Internal Medicine
DX: I33.0 Acute and subacute infective endocarditis (principal); T82.6XXA 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, initial encounter
CPT/HCPCS: 96365

== ENCOUNTER → 2018-05-01 08:25 | Outpatient (CLI) | payer MEDICARE, MEDICAID, SELFPAY ==
[2018-05-01 09:03] VITALS: BP 102/59; PULSE 70; RESP 18; TEMP 36.8; O2SAT 98
[2018-05-01 09:40] VITALS: BP 116/63; PULSE 70; RESP 18; TEMP 36.8; O2SAT 99
[2018-05-01 21:27] VITALS: BMI 30.9
[2018-05-01 21:28] VITALS: BP 123/55; PULSE 71; RESP 18; TEMP 36.8; O2SAT 98
[2018-05-01 21:53] VITALS: BP 119/63; PULSE 71; RESP 18; TEMP 36.8; O2SAT 98
== END ==
PROVIDERS: Visit Provider Internal Medicine
DX: I33.0 Acute and subacute infective endocarditis (principal); T82.6XXA 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, initial encounter
CPT/HCPCS: 96365

== ENCOUNTER 2018-05-02 08:20 | Outpatient (CLI) | payer MEDICARE, MEDICAID, SELFPAY ==
[2018-05-02 08:35] VITALS: BP 102/52; PULSE 69; RESP 18; TEMP 36.4; O2SAT 95
[2018-05-02 09:05] VITALS: BP 110/53; PULSE 69; RESP 18
[2018-05-02 09:25] VITALS: BP 104/51; PULSE 69; RESP 18
[2018-05-02 22:00] VITALS: BP 117/55; PULSE 72; RESP 16; TEMP 36.6; O2SAT 97
[2018-05-02 22:40] VITALS: BP 123/62; PULSE 70; RESP 18; TEMP 36.7; O2SAT 97
--- NOTE | 2018-05-02 23:06 | PC.NURSE ---
Pt. arrived to floor at 21:55.
--- NOTE | 2018-05-02 23:07 | PC.NURSE ---
Pt. left floor at 22:40.
== END 2018-05-02 22:40 | disposition home or self-care (01) ==
LOC: INF 08:26
PROVIDERS: Visit Provider Internal Medicine
DX: I33.0 Acute and subacute infective endocarditis (principal); T82.6XXA 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, initial encounter
CPT/HCPCS: 96365; G0463

== ENCOUNTER → 2018-05-03 08:53 | Outpatient (CLI) | payer MEDICARE, MEDICAID, SELFPAY ==
[2018-05-03 09:39] VITALS: BP 105/43; PULSE 69; RESP 18; TEMP 36.6; O2SAT 95; BMI 30.2
[2018-05-03 10:15] VITALS: BP 111/55; PULSE 69; RESP 18; TEMP 36.6; O2SAT 95
[2018-05-03 23:08] VITALS: BP 114/65; PULSE 85; RESP 15; TEMP 36.6; O2SAT 96
== END ==
PROVIDERS: PCP Emergency Medicine; Visit Provider Internal Medicine
DX: I33.0 Acute and subacute infective endocarditis (principal); T82.6XXA 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, initial encounter
CPT/HCPCS: 96365; G0463

== ENCOUNTER → 2018-05-04 09:01 | Outpatient (CLI) | payer MEDICARE, MEDICAID, SELFPAY ==
[2018-05-04 09:21] VITALS: BP 104/59; PULSE 69; RESP 16; TEMP 36.6; O2SAT 96; BMI 30.2
[2018-05-04 10:15] VITALS: BP 108/62; PULSE 69; RESP 16; TEMP 36.6; O2SAT 96
== END ==
PROVIDERS: PCP Emergency Medicine; Visit Provider Internal Medicine
DX: I33.0 Acute and subacute infective endocarditis (principal); T82.6XXA 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, initial encounter
CPT/HCPCS: 96365

== ENCOUNTER 2018-05-05 10:31 | Outpatient (CLI) | payer MEDICARE, MEDICAID, SELFPAY | END 2018-05-05 10:45 | disposition home or self-care (01) | LOC: INF 10:31 | PROVIDERS: Visit Provider Internal Medicine | DX: I33.0 Acute and subacute infective endocarditis (principal); T82.6XXA 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, initial encounter; Z48.00 Encounter for change or removal of nonsurgical wound dressing | CPT/HCPCS: 96523 ==

== ENCOUNTER → 2018-05-08 08:29 | Outpatient (CLI) | payer MEDICARE, MEDICAID, SELFPAY ==
--- NOTE | 2018-05-08 08:32 | CI_ITS ---
Cerebrovascular Exam Indications: Follow-up carotid 433.10. IMPRESSIONS 1. Theright vertebral artery is patent with normal antegrade flow. No flow could be visualized in the left vertebral artery. 2. Study visually suggests 70-99% stenosis involving the left internal carotid artery. 3. Study suggests less than 20% stenosis involving the right internal carotid artery. History: Coronary artery disease. Risk factors: Current tobacco use. Hypertension. Diabetes mellitus. Hyperlipidemia. Carotid duplex study. Complete study and Doppler flow study including spectral analysis, color and man scale imaging. Height: Height: 129.5cm. Height: 51in. Weight: Weight: 73.9kg. Weight: 162.7lb. Body mass index: BMI: 44.1kg/m^2. Body surface area: BSA: 1.69m^2. Location: Vascular laboratory. Patient status: Outpatient. Tables: Arterial flow: + +--------+--------+ Location V sys V ed + +--------+--------+ Right CCA - proximal 119cm/s 19.6cm/s + +--------+--------+ Right CCA - distal 93.5cm/s 24.4cm/s + +--------+--------+ Right ECA 149cm/s 8.3cm/s + +--------+--------+ Right ICA - proximal 124cm/s 25.7cm/s + +--------+--------+ Right ICA - mid 120cm/s 27cm/s + +--------+--------+ Right ICA - distal 71.5cm/s 22.8cm/s + +--------+--------+ Right vertebral 56.8cm/s 19.8cm/s + +--------+--------+ Left CCA - proximal 80.1cm/s 12.6cm/s + +--------+--------+ Left CCA - distal 101cm/s 13.4cm/s + +--------+--------+ Left ECA 107cm/s 11.1cm/s + +--------+--------+ Left ICA - proximal 202cm/s 20.2cm/s + +--------+--------+ Left ICA - mid 115cm/s 20.8cm/s + +--------+--------+ Left ICA - distal 44.4cm/s 17.4cm/s + +--------+--------+ Velocity ratios: + + + + + + Right, V sys Right, V ed Left, V sys Left, V ed + + + + + + Max ICA/dist CCA 1.33 1.11 2 1.55 + + + + + + (Report amended ) Electronically signed by: Bryant Bennett [id number]
== END ==
PROVIDERS: PCP Emergency Medicine; Visit Provider Internal Medicine
DX: R09.89 Other specified symptoms and signs involving the circulatory and respiratory systems (principal)
CPT/HCPCS: 93880

== ENCOUNTER → 2018-07-21 11:53 | Outpatient (CLI) | payer MEDICARE, MEDICAID, SELFPAY ==
[2018-07-21 12:36] LABS: Basophils # 0.1 K/mm3 (0-0.2); Basophils % 0.6 % (0.1-2.0); Eosinophils # 0.2 K/mm3 (0.0-0.4); Eosinophils % 2.2 % (0.1-12.0); Hematocrit 44.4 % (37.0-47.0); Hemoglobin 14.3 g/dL (12.2-16.2); Lymphocytes # 2.1 K/mm3 (0.7-4.5); Lymphocytes % 20.7 % (10-50); Mean Corpuscular HGB Conc 32.3 g/dL (31.8-35.4); Mean Corpuscular Hemoglobin 29.1 pg (27.0-31.2); Mean Platelet Volume 7.9 fl (7.4-10.4); Monocytes # 0.4 K/mm3 (0.1-1.0); Monocytes % 4.3 % (1.7-9.3); Neutrophils # 7.3 K/mm3 (1.8-7.8); Neutrophils % 72.2 % (37.0-80.0); Platelet Count 298 K/mm3 (142-424); Red Blood Count 4.94 M/mm3 (4.20-5.40); Red Cell Distribution Width 13.9 % (11.5-17.5); White Blood Count 10.1 K/mm3 (4.8-10.8)
[2018-07-21 13:09] LABS: Hemoglobin A1C 8.5 % (0.0-7.0)
[2018-07-21 13:49] LABS: Alanine Aminotransferase 25 U/L (12-78); Albumin Level 3.7 gm/dL (3.4-5.0); Alkaline Phosphatase 153 U/L (46-116); Anion Gap 20.1 mEq/L (5-15); Aspartate Amino Transferase 15 U/L (15-37); Bilirubin,Total 0.3 mg/dL (0.2-1.0); Blood Urea Nitrogen 35 mg/dL (7-18); Calcium 9.6 mg/dL (8.5-10.1); Carbon Dioxide 22 mmol/L (21.0-32.0); Chloride 105 mmol/L (98-107); Chol/HDL Ratio 6.5 (1-3.5); Cholesterol 175 mg/dL (140-200); Creatinine,Serum 1.28 mg/dL (0.55-1.02); Estimated Glomerular Filt Rate 43 ml/min (>60); Free T4 (Free Thyroxine) 1.01 ng/dl (0.76-1.46); GFR (African American) 52 ML/MIN (>60); Globulin 3.8 gm/dl (1.3-3.2); Glucose 146 mg/dL (74-106); HDL Cholesterol 27 mg/dL (29-89); LDL Cholesterol 99 mg/dL (0-130); Potassium 5.1 mmoL/L (3.5-5.1); Sodium 142 mmol/L (136-145); Thyroid Stimulating Hormone 2.86 uIU/ml (0.358-3.740); Total Protein,Serum 7.5 gm/dL (6.4-8.2); Triglycerides 245 mg/dL (30-200); VLDL Cholesterol 49 mg/dL (0-40)
[2018-07-21 18:15] LABS: Amphetamine/Metha Screen,Urine Negative ng/mL (<1000); Barbiturates Screen,Urine Negative ng/mL (<200); Benzodiazepines Screen,Urine Negative ng/mL (<200); Cannabinoid Screen,Urine Positive ng/mL (<50); Cocaine Screen,Urine Negative ng/mL (<300); Methadone Screen,Urine Negative ng/mL (<300); Opiate Screen,Urine Negative ng/mL (<300); Phencyclidine Screen,Urine Negative ng/mL (<25)
[2018-07-22 19:55] LABS: Vitamin D 25 Hydroxy 26.1 ng/mL (30.0-100.0)
== END ==
PROVIDERS: Visit Provider Emergency Medicine
DX: E11.9 Type 2 diabetes mellitus without complications (principal); Z79.899 Other long term (current) drug therapy; Z79.4 Long term (current) use of insulin; E55.9 Vitamin D deficiency, unspecified
CPT/HCPCS: 80053; 80061; 80305; 82652; 83036; 84439; 84443; 85025

== ENCOUNTER → 2018-07-28 08:10 | Outpatient (CLI) | payer MEDICARE, MEDICAID, SELFPAY ==
--- NOTE | 2018-07-28 08:12 | US_ITS ---
US Arterial Ankle Brachial Ind History: ITS.REASON: leg pain claudication, diabetes, smoker, rest pain ORDERING PHYSICIAN: Cosme Davis MD PATIENT AGE: 58 years TECHNIQUE: Segmental pressures obtained of both right and left leg. These are compared to brachial blood pressure to yield index at each level sampled including summary GOMEZ. The data sheets from the procedure are available in PACS FINDINGS Rest study only performed today No prior studies available for comparison. Blood pressures reported are in millimeters mercury. RIGHT LEG GOMEZ = 0.6. RIGHT LEG TBI=0.5 Brachial BP: 121 Thigh BP: 60 Calf BP: 65 Ankle PT: 71 Ankle DP : 66 Digit =63 LEFT LEG GOMEZ = 0.7 LEFT LEG TBI= 0.5 Brachial BPD: 124 Thigh BP: 95 Calf BP: 84 Ankle PT:80 Ankle DP: 88 Digit = 65 Pulses and waveforms: Decreased IMPRESSION: Both right and left ABIs are low consistent with moderate arterial disease
== END ==
PROVIDERS: PCP Emergency Medicine; Visit Provider Emergency Medicine
DX: M79.604 Pain in right leg (principal); M79.605 Pain in left leg; R09.89 Other specified symptoms and signs involving the circulatory and respiratory systems
CPT/HCPCS: 93922

== ENCOUNTER → 2018-08-13 15:15 | Outpatient (CLI) | payer MEDICARE, MEDICAID, SELFPAY ==
[2018-08-13 15:41] LABS: Amphetamine/Metha Screen,Urine Negative ng/mL (<1000); Barbiturates Screen,Urine Negative ng/mL (<200); Benzodiazepines Screen,Urine Positive ng/mL (<200); Cannabinoid Screen,Urine Positive ng/mL (<50); Cocaine Screen,Urine Negative ng/mL (<300); Methadone Screen,Urine Negative ng/mL (<300); Opiate Screen,Urine Negative ng/mL (<300); Phencyclidine Screen,Urine Negative ng/mL (<25)
== END ==
PROVIDERS: Visit Provider Emergency Medicine
DX: Z79.899 Other long term (current) drug therapy (principal)
CPT/HCPCS: 80305

== ENCOUNTER → 2018-08-25 11:15 | Outpatient (CLI) | payer MEDICARE, MEDICAID, SELFPAY ==
[2018-08-25 11:27] LABS: Microscopic, Urine URINE MICROSCOPIC (MICROSCOPIC)
[2018-08-25 11:57] LABS: Appearance,Urine CLEAR (Clear); Bilirubin,Urine Negative (Negative); Blood, Urine 2+ (Negative); Color,Urine YELLOW (Yellow); Glucose,Urine (UA) Negative (Negative); Ketones,Urine Negative (Negative); Leukocyte Esterase,Urine 2+ (Negative); Nitrate,Urine POSITIVE (Negative); PH,Urine 7.5 (5.0-8.5); Protein,Urine 1+ (Negative); Urobilinogen,Urine 0.2 EU/dl (0.2)
[2018-08-25 12:04] LABS: Basophils # 0.1 K/mm3 (0-0.2); Basophils % 0.8 % (0.1-2.0); Eosinophils # 0.2 K/mm3 (0.0-0.4); Eosinophils % 2.1 % (0.1-12.0); Hematocrit 41.6 % (37.0-47.0); Hemoglobin 13.3 g/dL (12.2-16.2); Lymphocytes # 1.9 K/mm3 (0.7-4.5); Lymphocytes % 20.6 % (10-50); Mean Corpuscular HGB Conc 31.9 g/dL (31.8-35.4); Mean Corpuscular Hemoglobin 28.1 pg (27.0-31.2); Mean Corpuscular Volume 88.1 fl (81-99); Mean Platelet Volume 7.9 fl (7.4-10.4); Monocytes # 0.4 K/mm3 (0.1-1.0); Monocytes % 4.6 % (1.7-9.3); Neutrophils # 6.7 K/mm3 (1.8-7.8); Neutrophils % 71.9 % (37.0-80.0); Platelet Count 344 K/mm3 (142-424); Red Blood Count 4.72 M/mm3 (4.20-5.40); Red Cell Distribution Width 14.2 % (11.5-17.5); White Blood Count 9.3 K/mm3 (4.8-10.8)
[2018-08-25 12:09] LABS: Creatinine,Urine Random 106 mg/dL (20-320); Total Protein,Urine Random 52.9 mg/dL (0.0-11.9)
[2018-08-25 12:14] LABS: Bacteria,Urine 2+ /lpf; RBC,Urine Occasional #/hpf (0-3); Squamous Epithelial Cell,Urine Occasional #/hpf (0-5)
[2018-08-25 13:20] LABS: Albumin Level 3.5 gm/dL (3.4-5.0); Anion Gap 15.5 mEq/L (5-15); Blood Urea Nitrogen 25 mg/dL (7-18); Calcium 9.6 mg/dL (8.5-10.1); Carbon Dioxide 25 mmol/L (21.0-32.0); Chloride 101 mmol/L (98-107); Creatinine,Serum 1.23 mg/dL (0.55-1.02); Estimated Glomerular Filt Rate 45 ml/min (>60); GFR (African American) 55 ML/MIN (>60); Glucose 136 mg/dL (74-106); Phosphorous 3.9 mg/dL (2.4-4.9); Potassium 4.5 mmoL/L (3.5-5.1); Sodium 137 mmol/L (136-145)
[2018-08-26 13:00] LABS: Vitamin D 25 Hydroxy 27.1 ng/mL (30.0-100.0)
[2018-08-29 17:46] LABS: Parathyroid Hormone Intact 24 pg/mL (15-65)
== END ==
PROVIDERS: Visit Provider Internal Medicine Nephrology
DX: N18.3 Chronic kidney disease, stage 3 (moderate) (principal); R82.90 Unspecified abnormal findings in urine
CPT/HCPCS: 36415; 80069; 81001; 82570; 82652; 83970; 84155; 85025; 87086; 87088; 87186

== ENCOUNTER → 2018-08-25 13:47 | Outpatient (POV) | payer MEDICARE, MEDICAID, SELFPAY | PROVIDERS: Visit Provider Internal Medicine Nephrology | DX: Z00.00 Encounter for general adult medical examination without abnormal findings (principal) ==

== ENCOUNTER → 2018-08-27 15:11 | Outpatient (CLI) | payer MEDICARE, MEDICAID, SELFPAY ==
[2018-08-27 16:29] VITALS: BMI 32.1
== END ==
PROVIDERS: PCP Emergency Medicine; Visit Provider Emergency Medicine
DX: Z71.3 Dietary counseling and surveillance (principal); E11.9 Type 2 diabetes mellitus without complications; Z79.4 Long term (current) use of insulin
CPT/HCPCS: 97802

== ENCOUNTER → 2018-09-18 16:39 | Outpatient (CLI) | payer MEDICARE, MEDICAID, SELFPAY ==
--- NOTE | 2018-09-18 16:41 | MM_ITS ---
MM Dig screening mamm BI w/CAD ORDERING PHYSICIAN : Cosme Davis MD PATIENT AGE: 58 years GENDER: Female COMPARISON: No previous studies available for comparison. Baseline exam INDICATION: Routine: screening. No hormones no new complaints . HISTORY of bladder cancer in this patient . Otherwise noncontributory family history TECHNIQUE: Standard CC and MLO images were obtained. R2 CAD reviewed. Additional nipple profile cc views bilateral FINDINGS: Low-density breast. Generalized fatty replacement with scant residual fibroglandular elements. Mammography is most optimal in this type of breast. Period No dominant or suspicious mass either breast.. No suspicious calcifications. No significant findings. No previous studies available for comparison. Baseline exam RIGHT BREAST:. No areas of concern. Follow-up in one year recommended LEFT BREAST: No areas of concern. Benign dense benign calcification upper-outer quadrant lateral left breast. Pacemaker is seen overlying the very deep axillary portion left breast. This partially obscures a very deep portion left breast but no areas of concern are seen overall. On other views. .........IMPRESSION: ...... Negative Baseline mammogram. No areas of significant concern either breast. . Follow-up in one year recommended Low-density breast with generalized fatty replacement BI-RADS Category: 1 Negative RECOMMENDED FOLLOW-UP: 1YR 1 YEAR FOLLOW-UP (A letter has been sent to the patient regarding results of the study.)
== END ==
PROVIDERS: PCP Emergency Medicine; Visit Provider Emergency Medicine
DX: Z12.31 Encounter for screening mammogram for malignant neoplasm of breast (principal)
CPT/HCPCS: 77067

== ENCOUNTER → 2018-11-12 13:25 | Outpatient (CLI) | payer MEDICARE, MEDICAID, SELFPAY ==
[2018-11-12 17:01] LABS: Amphetamine/Metha Screen,Urine Negative ng/mL (<1000); Barbiturates Screen,Urine Negative ng/mL (<200); Benzodiazepines Screen,Urine Positive ng/mL (<200); Cannabinoid Screen,Urine Positive ng/mL (<50); Cocaine Screen,Urine Negative ng/mL (<300); Methadone Screen,Urine Negative ng/mL (<300); Opiate Screen,Urine Negative ng/mL (<300); Phencyclidine Screen,Urine Negative ng/mL (<25)
== END ==
PROVIDERS: Visit Provider Emergency Medicine
DX: Z79.899 Other long term (current) drug therapy (principal)
CPT/HCPCS: 80305

== ENCOUNTER → 2018-11-18 09:24 | Outpatient (CLI) | payer MEDICARE, MEDICAID, SELFPAY ==
--- NOTE | 2018-11-18 09:25 | CA_ITS ---
APPROVED REPORT Supervisor Assembly And Packing: NOAH Laterality: Bilateral Study Quality: Adequate Indications: isamar Doppler Spectral Velocity Analysis ECA (R) 175.00/ cm/s ECA (L) 110.00/ cm/s dICA (R) 82.50/24.40 cm/s dICA (L) 87.70/28.10 cm/s Mariah (R) 87.20/22.80 cm/s Mariah (L) 59.00/15.40 cm/s pICA (R) 135.00/35.40 cm/s pICA (L) 185.00/20.40 cm/s dCCA (R) 117.00/26.70 cm/s dCCA (L) 116.00/16.50 cm/s pCCA (R) 79.40/19.60 cm/s pCCA (L) 104.00/18.10 cm/s Vert (R) 57.40/ cm/s ICA/CCA 1.15 ICA/CCA 1.59 Findings Duplex evaluation demonstrates stenosis of the right proximal internal carotid artery <20% with PSV <140 cm/sec, EDV <100 cm/sec, and IC/CC Ratio <4.0.Duplex evaluation demonstrates stenosis of the left proximal internal carotid artery in the range of 70-99% with PSV =140 cm/sec, EDV =100 cm/sec, or IC/CC Ratio =4.0. No flow can be visualized in left vertebral artery. Antegrade flow in right vertebral artery There is no significant change from prior study of 05/08/18 Conclusion Duplex evaluation demonstrates stenosis of the right proximal internal carotid artery <20% with PSV <140 cm/sec, EDV <100 cm/sec, and IC/CC Ratio <4.0.Duplex evaluation demonstrates stenosis of the left proximal internal carotid artery in the range of 70-99% with PSV =140 cm/sec, EDV =100 cm/sec, or IC/CC Ratio =4.0. No flow can be visualized in left vertebral artery. Antegrade flow in right vertebral artery There is no significant change from prior study of 05/08/18. CTA may be of further value if clinically indicated Electronically signed by : Eulogio Lombardo MD 11/21/2018 16:28:02
== END ==
PROVIDERS: PCP Emergency Medicine; Visit Provider Nurse Practitioner Family
DX: E11.9 Type 2 diabetes mellitus without complications (principal); E78.5 Hyperlipidemia, unspecified; I11.9 Hypertensive heart disease without heart failure; I25.10 Atherosclerotic heart disease of native coronary artery without angina pectoris; I33.0 Acute and subacute infective endocarditis; I73.9 Peripheral vascular disease, unspecified; R09.89 Other specified symptoms and signs involving the circulatory and respiratory systems; R68.89 Other general symptoms and signs; Z72.0 Tobacco use; Z95.2 Presence of prosthetic heart valve; Z95.810 Presence of automatic (implantable) cardiac defibrillator; Z98.890 Other specified postprocedural states; I65.23 Occlusion and stenosis of bilateral carotid arteries
CPT/HCPCS: 93880

== ENCOUNTER → 2018-12-01 12:49 | Outpatient (CLI) | payer MEDICARE, MEDICAID, SELFPAY ==
[2018-12-01 14:34] LABS: Anion Gap 20.8 mEq/L (5-15); Blood Urea Nitrogen 38 mg/dL (7-18); Calcium 10.3 mg/dL (8.5-10.1); Carbon Dioxide 20 mmol/L (21.0-32.0); Chloride 105 mmol/L (98-107); Creatinine,Serum 1.31 mg/dL (0.55-1.02); Estimated Glomerular Filt Rate 42 ml/min (>60); GFR (African American) 51 ML/MIN (>60); Glucose 202 mg/dL (74-106); Potassium 4.8 mmoL/L (3.5-5.1); Sodium 141 mmol/L (136-145)
== END ==
PROVIDERS: Visit Provider Nurse Practitioner Family
DX: E11.9 Type 2 diabetes mellitus without complications (principal); E78.5 Hyperlipidemia, unspecified; I11.9 Hypertensive heart disease without heart failure; I25.10 Atherosclerotic heart disease of native coronary artery without angina pectoris; I33.0 Acute and subacute infective endocarditis; I65.29 Occlusion and stenosis of unspecified carotid artery; I73.9 Peripheral vascular disease, unspecified; R68.89 Other general symptoms and signs; Z72.0 Tobacco use; Z95.2 Presence of prosthetic heart valve; Z95.810 Presence of automatic (implantable) cardiac defibrillator; Z98.890 Other specified postprocedural states; Z79.4 Long term (current) use of insulin
CPT/HCPCS: 36415; 80048

== ENCOUNTER 2019-03-11 12:07 | Inpatient (IN) ==
[2019-03-11 15:29] LABS: Microscopic, Urine URINE MICROSCOPIC (MICROSCOPIC)
--- NOTE | 2019-03-11 15:34 | Pharmacy Consult Notes ---
[facility] VTE Monitoring - Patient Demographics Admission date: 03/11/19 Report Date: 03/11/19 Time: 15:34 Allergies/Adverse Reactions: Patient Allergies No Known Allergies Allergy (Verified 03/11/19 11:13) Height: 1.55 m Weight: 68.294 kg - VTE Risk Was VTE Risk Assessment Performed: Yes VTE Score: 1 VTE Risk Level: Very Low Risk - Prophylaxis VTE Prophylaxis Ordered?: Yes Types of VTE Prophylaxis: TEDS Knee High Location of Applied Device: Bilateral Lower Extremeties - VTE Diagnosis Confirmed Treatment or plan recommended: Continue Current Treatment
[2019-03-11 15:58] LABS: Appearance,Urine CLEAR (Clear); Bilirubin,Urine Negative (Negative); Blood, Urine TRACE-I (Negative); Color,Urine YELLOW (Yellow); Glucose,Urine (UA) Negative (Negative); Ketones,Urine Negative (Negative); Leukocyte Esterase,Urine 2+ (Negative); Protein,Urine 1+ (Negative); Urobilinogen,Urine 0.2 EU/dl (0.2)
[2019-03-11 16:15] LABS: PH,Urine >= 9.0 (5.0-8.5)
[2019-03-11 16:30] LABS: Bacteria,Urine Trace /lpf; Triple Phosphate Crystal,Urine Trace /lpf
--- NOTE | 2019-03-11 16:54 | Consult Report ---
*Admission Date: 03/11/19 *Reason for consult:: depression *History of present illness: I saw Laxmi in her room on the 2nd floor. She states that she went to her PCP who admitted her from his office there. States that she has been sick for days; estimates 8-9 days. But then states she is really not sure. -she has glazed over eyes -looks like a deer in head lights -she knows that it is the 2019 -when I ask her the day of the week she replies "Don't ask me these stupid questions" She denies any depression or anxiety. SHe states that she has been taking her medicines and that everything is fine with them. Denies any suicidal ideations; or thoughts to self harm. Denies any hallucinations; delusions. Oriented to person and place. Not oriented to time but this is not new for her. SHe does have baseline confusion with dates. She states that she just wants to be left alone. That she is tired and does not feel good. I see her on an outpatient basis. I did reschedule her a follow up appointment for next month to reassess her. RECOMMENDATIONS: -No changes to her medications today. -Will follow-up with her tomorrow to see how she is doing. [facility] History Medical History: Reports:: Cancer, Carotid Stenosis, Congestive Heart Failure, Coronary Artery Disease, Diabetes Mellitus Type 2, Hyperlipidemia, Hypertension, Internal Pacemaker, Myocardial Infarction, Peripheral Artery Disease, Peripheral Vascular Disease Denies:: Diabetes Mellitus Type 1, MRSA *Have you ever received a pneumonia vaccine?: No *Have you received a flu vaccine this season?: Yes Other Medical History: Reports: Chemotherapy, Hypothyroidism Other Surgeries: Yes: No Previous Surgery, Cancer Surgery, Cardiac Catheterization, Cardiac Surgery, Cholecystectomy, , Hysterectomy- Total, Open Heart Surgery, Pacemaker, Other (bladder removed) Amputation: No Fractures: No - *Social History Smoking Status: Current every day smoker Tobacco Type: cigarettes # Packs/Day (cigarettes): 10 Alcohol Intake: never Substance Use Type: denies use, crack/cocaine, hallucinogens, inhalants *Occupational Status:: unemployed, disabled Housing: house Household Members: spouse, children, other *Travel in the last 8 weeks: None Family Hx:: Cancer, Coronary Artery Disease, Diabetes, Hyperlipidemia, Hypertension, Stroke Meds Home Medications Medication Instructions Recorded Confirmed Type lisinopril 2.5 mg tablet 2.5 mg PO DAILY 30 Days #90 tab 10/14/18 03/11/19 Rx aspirin 81 mg tablet,delayed 81 mg PO DAILY #90 tab 01/21/19 03/11/19 Rx release diltiazem HCl 120 mg 120 mg PO DAILY #90 cap 01/21/19 03/11/19 Rx capsule,extended release 24 hr alprazolam 0.5 mg tablet 0.5 mg PO TID PRN #90 tab 02/13/19 03/11/19 Rx carvedilol 6.25 mg tablet 6.25 mg PO BID #60 tab 02/13/19 03/11/19 Rx cholecalciferol (vitamin D3) 25 1,000 unit PO DAILY #30 tab 02/13/19 03/11/19 Rx mcg (1,000 unit) tablet clopidogrel 75 mg tablet 75 mg PO DAILY #30 tab 02/13/19 03/11/19 Rx ergocalciferol (vitamin D2) 1,250 50,000 unit PO QWEEK #12 cap 02/13/19 03/11/19 Rx mcg (50,000 unit) capsule gabapentin 300 mg capsule 300 mg PO HS #30 cap 02/13/19 03/11/19 Rx zolpidem 5 mg tablet 5 mg PO HSP PRN #30 tab 02/13/19 03/11/19 Rx Ondansetron [Zofran 4mg ODT] 4 mg PO Q4HP PRN 10 Days #30 03/06/19 03/11/19 Rx tab.rapdis Atorvastatin Calcium [Atorvastatin 40 mg PO DAILY 03/11/19 03/11/19 History 40mg Tab] Escitalopram Oxalate [Lexapro] 20 mg PO DAILY 03/11/19 03/11/19 History Fluconazole [Diflucan 200mg tablet] 200 mg PO DAILY 03/11/19 03/11/19 History Furosemide [Furosemide 20mg Tab] 20 mg PO DAILY 03/11/19 03/11/19 History Insulin NPH Hum/Reg Insulin Hm 30 unit SQ BID 03/11/19 03/11/19 History [Relion Novolin 70-30 Vial] Levothyroxine Sodium [Synthroid 25 mcg PO DAILY 03/11/19 03/11/19 History 25mcg (0.025mg) tablet] Nystatin [Nystatin Topical Powder 1 applicatio TP QID 03/11/19 03/11/19 History 30GM*] Sulfamethoxazole/Trimethoprim 1 each PO BID 03/11/19 03/11/19 History [Bactrim DS tablet] Allergies Allergy/AdvReac Type Severity Reaction Status Date / Time No Known Allergies Allergy Verified 03/11/19 11:13 Exam Vital signs and Labs for Last 24 Hours: Temp Pulse Resp BP Pulse Ox 96.8 F L 60 18 86/52 L 93 L 03/11/19 16:00 03/11/19 16:00 03/11/19 16:00 03/11/19 13:07 03/11/19 13:07 Laboratory Results - last 24 hr 03/11/19 13:50: Lactate 0.3 L 03/11/19 14:45: Urine Color Yellow, Urine Appearance Clear, Urine pH >= 9.0 H, Ur Specific [place] 1.010, Urine Protein 1+, Urine Glucose (UA) Negative, Urine Ketones Negative, Urine Blood Trace-i, Urine Nitrate Negative, Urine Bilirubin Negative, Urine Urobilinogen 0.2, Ur Leukocyte Esterase 2+ A, Urine WBC 10-20, Ur Squamous Epith Cells 5-10, Triple Phos Crystals Trace, Urine Bacteria Trace I & O for Last 24 hours: Intake & Output 03/09/19 03/10/19 03/11/19 03/12/19 11:59 11:59 11:59 11:59 Intake Total 120 / 120 Balance 120 / 120 Weight 150 lb 9 oz Internal Medicine - CN: Reslt - Labs Labs: Urine 03/11/19 Range/Units 14:45 Urine Color Yellow (Yellow) Urine Appearance Clear (Clear) Urine pH >= 9.0 H (5.0-8.5) Ur Specific [place] 1.010 (1.005-1.030) Urine Protein 1+ (Negative) Urine Glucose (UA) Negative (Negative)
[2019-03-11 17:10] LABS: Basophils # 0.1 K/mm3 (0-0.2); Basophils % 0.3 % (0.1-2.0); Eosinophils # 0.1 K/mm3 (0.0-0.4); Eosinophils % 0.5 % (0.1-12.0); Hematocrit 50.8 % (37.0-47.0); Hemoglobin 15.2 g/dL (12.2-16.2); Lymphocytes % 9.3 % (10-50); Mean Corpuscular HGB Conc 29.9 g/dL (31.8-35.4); Mean Corpuscular Volume 97.9 fl (81-99); Mean Platelet Volume 10.2 fl (7.4-10.4); Monocytes # 1.1 K/mm3 (0.1-1.0); Monocytes % 4.9 % (1.7-9.3); Neutrophils # 18.7 K/mm3 (1.8-7.8); Neutrophils % 85.1 % (37.0-80.0); Platelet Count 284 K/mm3 (142-424); Red Blood Count 5.19 M/mm3 (4.20-5.40); Red Cell Distribution Width 14.3 % (11.5-17.5); White Blood Count 21.9 K/mm3 (4.8-10.8)
[2019-03-11 17:16] LABS: Albumin Level 3.5 gm/dL (3.4-5.0)
[2019-03-11 18:41] LABS: Albumin/Globulin Ratio 0.7 (1.1-1.8); Anion Gap 29.2 mEq/L (5-15); Bilirubin,Total 0.2 mg/dL (0.2-1.0); Calcium 9.6 mg/dL (8.5-10.1); Total Protein,Serum 8.5 gm/dL (6.4-8.2)
[2019-03-11 20:46] LABS: Lymphocytes % 7 % (10-50); Monocytes % 3 % (2-9); Neutrophils % 90 % (42-76); RBC Morphology Normal; Total Cells Counted 100
--- NOTE | 2019-03-11 20:57 | History & Physical Report ---
*Admission Date: 03/11/19 *Chief complaint: weakness *History of present illness: this wf was seen in the pcp office - pt had been seen in [facility] and was on treatment for cellulitis but had continued to have sx and had dec po intake and progressive weakness - pt was sent for admit from office - [facility] History I have reviewed the patient's past medical history: Yes Medical History: Reports:: Cancer, Carotid Stenosis, Congestive Heart Failure, Coronary Artery Disease, Diabetes Mellitus Type 2, Hyperlipidemia, Hypertension, Internal Pacemaker, Myocardial Infarction, Peripheral Artery Disease, Peripheral Vascular Disease Denies:: Diabetes Mellitus Type 1, MRSA *Have you ever received a pneumonia vaccine?: No *Have you received a flu vaccine this season?: Yes Other Medical History: Reports: Chemotherapy, Hypothyroidism Other Surgeries: Yes: No Previous Surgery, Cancer Surgery, Cardiac Catheterization, Cardiac Surgery, Cholecystectomy, , Hysterectomy- Total, Open Heart Surgery, Pacemaker, Other (bladder removed) Amputation: No Fractures: No - *Social History Smoking Status: Current every day smoker Tobacco Type: cigarettes # Packs/Day (cigarettes): 10 Alcohol Intake: never Substance Use Type: denies use, crack/cocaine, hallucinogens, inhalants *Occupational Status:: unemployed, disabled Housing: house Household Members: spouse, children, other *Travel in the last 8 weeks: None Family Hx:: Cancer, Coronary Artery Disease, Diabetes, Hyperlipidemia, Hypertension, Stroke Review of Systems - Review of Systems Review of systems:: pertinent systems reviewed and negative unless documented below - Constitutional Reports weakness, Denies headache(s) - Eyes Denies change in vision - ENT Denies sore throat - *Cardiovascular Denies chest pain - *Respiratory Denies cough - *Gastrointestinal Denies abdominal pain - *Genitourinary Denies blood in urine, Denies pelvic pain - *Musculoskeletal Denies joint pain - Integumentary/Breasts Denies rash - *Neurologic Denies localized weakness, Denies headache(s), Denies tingling/numbness/burning sensations, Denies seizure-like activity - Psychiatric Reports depression Meds Home Medications Medication Instructions Recorded Confirmed Type lisinopril 2.5 mg tablet 2.5 mg PO DAILY 30 Days #90 tab 10/14/18 03/11/19 Rx aspirin 81 mg tablet,delayed 81 mg PO DAILY #90 tab 01/21/19 03/11/19 Rx release diltiazem HCl 120 mg 120 mg PO DAILY #90 cap 01/21/19 03/11/19 Rx capsule,extended release 24 hr alprazolam 0.5 mg tablet 0.5 mg PO TID PRN #90 tab 02/13/19 03/11/19 Rx carvedilol 6.25 mg tablet 6.25 mg PO BID #60 tab 02/13/19 03/11/19 Rx cholecalciferol (vitamin D3) 25 1,000 unit PO DAILY #30 tab 02/13/19 03/11/19 Rx mcg (1,000 unit) tablet clopidogrel 75 mg tablet 75 mg PO DAILY #30 tab 02/13/19 03/11/19 Rx ergocalciferol (vitamin D2) 1,250 50,000 unit PO QWEEK #12 cap 02/13/19 03/11/19 Rx mcg (50,000 unit) capsule gabapentin 300 mg capsule 300 mg PO HS #30 cap 02/13/19 03/11/19 Rx zolpidem 5 mg tablet 5 mg PO HSP PRN #30 tab 02/13/19 03/11/19 Rx Ondansetron [Zofran 4mg ODT] 4 mg PO Q4HP PRN 10 Days #30 03/06/19 03/11/19 Rx tab.rapdis Atorvastatin Calcium [Atorvastatin 40 mg PO DAILY 03/11/19 03/11/19 History 40mg Tab] Escitalopram Oxalate [Lexapro] 20 mg PO DAILY 03/11/19 03/11/19 History Fluconazole [Diflucan 200mg tablet] 200 mg PO DAILY 03/11/19 03/11/19 History Furosemide [Furosemide 20mg Tab] 20 mg PO DAILY 03/11/19 03/11/19 History Insulin NPH Hum/Reg Insulin Hm 30 unit SQ BID 03/11/19 03/11/19 History [Relion Novolin 70-30 Vial] Levothyroxine Sodium [Synthroid 25 mcg PO DAILY 03/11/19 03/11/19 History 25mcg (0.025mg) tablet] Nystatin [Nystatin Topical Powder 1 applicatio TP QID 03/11/19 03/11/19 History 30GM*] Sulfamethoxazole/Trimethoprim 1 each PO BID 03/11/19 03/11/19 History [Bactrim DS tablet] Allergies Allergy/AdvReac Type Severity Reaction Status Date / Time No Known Allergies Allergy Verified 03/11/19 11:13 Exam Vital signs and Labs for Last 24 Hours: Temp Pulse Resp BP Pulse Ox 97.6 F 60 18 111/48 L 93 L 03/11/19 17:26 03/11/19 16:00 03/11/19 16:00 03/11/19 19:00 03/11/19 13:07 Laboratory Results - last 24 hr 03/11/19 13:50: Lactate 0.3 L 03/11/19 14:45: Urine Color Yellow, Urine Appearance Clear, Urine pH >= 9.0 H, Ur Specific [place] 1.010, Urine Protein 1+, Urine Glucose (UA) Negative, Urine Ketones Negative, Urine Blood Trace-i, Urine Nitrate Negative, Urine Bilirubin Negative, Urine Urobilinogen 0.2, Ur Leukocyte Esterase 2+ A, Urine WBC 10-20, Ur Squamous Epith Cells 5-10, Triple Phos Crystals Trace, Urine Bacteria Trace 03/11/19 15:14: WBC 21.9 H*, RBC 5.19, Hgb 15.2, Hct 50.8 H, MCV 97.9, MCH 29.3, MCHC 29.9 L, RDW 14.3, Plt Count 284, MPV 10.2, Neut % (Auto) 85.1 H, Lymph % (Auto) 9.3 L, [place] % (Auto) 4.9, Eos % (Auto) 0.5, Baso % (Auto) 0.3, Neut # (Auto) 18.7 H, Lymph # (Auto) 2.0, [place] # (Auto) 1.1 H, Eos # (Auto) 0.1, Baso # (Auto) 0.1, Total Counted 100, Neutrophils % (Manual) 90 H, Lymphocytes % (Manual) 7 L, Monocytes % (Manual) 3, Platelet Estimate Marked increase, RBC Morphology Normal 03/11/19 15:17: Sodium 127 L, Potassium 5.2 H, Chloride 96 L, Carbon Dioxide 7 L*, Anion Gap 29.2 H, BUN 125 H*, Creatinine 3.95 H, Estimated Creat Clear 17, Estimated GFR 12 L*, Est GFR ( Amer) 14 L*, Glucose 283 H, Calcium 9.6, Magnesium 2.7 H, Total Bilirubin 0.2, AST 9 L, ALT 12, Alkaline Phosphatase 188 H, Total Protein 8.5 H, Albumin 3.5, Globulin 5.0 H, Albumin/Globulin Ratio 0.7 L 03/11/19 17:08: POC Glucose 322 H* I & O for Last 24 hours: Intake & Output 03/09/19 03/10/19 03/11/19 03/12/19 11:59 11:59 11:59 11:59 Intake Total 1619 / 1619 Balance 1619 / 1619 Weight 150 lb 9 oz - Constitutional no acute distress, chronically ill appearing - *Routine HEENT Exam Head: Present: normocephalic Eye: Present: EOMI, PERRL. Absent: conjunctival icterus ENT: Present: mucous membranes dry - *Routine Neck Exam Present: supple - *Routine Respiratory Exam Present: decreased breath sounds - *Routine Cardiovascular Exam Present: RRR, murmur, S4 - *Routine Abdominal Exam Present: soft Comments: urostomy - *Routine Extremities Exam Absent: calf tenderness - *Routine Skin Exam Present: intact - *Routine Neurological Exam Present: alert, CN II-XII intact. Absent: motor deficit - Routine Psychiatric Exam Present: depressed Assessment and Plan (1) Severe sepsis with acute organ dysfunction Current visit: Yes Status: Acute Category: Medical Code(s): A41.9 - Sepsis, unspecified organism; R65.20 - Severe sepsis without septic shock (2) Septic shock Current visit: Yes Status: Acute Category: Medical Code(s): A41.9 - Sepsis, unspecified organism; R65.21 - Severe sepsis with septic shock (3) Presence of urostomy Current visit: No Status: Acute Category: Medical Code(s): Z93.6 - Other artificial openings of urinary tract status (4) AICD (automatic cardioverter/defibrillator) present Current visit: No Status: Chronic Category: Surgical Code(s): Z95.810 - Presence of automatic (implantable) cardiac defibrillator (5) Bladder cancer Current visit: No Status: Acute Category: Medical Code(s): C67.9 - Malignant neoplasm of bladder, unspecified (6) Hypothyroidism (acquired) Current visit: No Status: Chronic Category: Medical Code(s): E03.9 - Hypothyroidism, unspecified (7) CAD (coronary artery disease) Current visit: No Status: Chronic Qualifiers: Coronary Disease-Associated Artery/Lesion type: [place] artery [place] vs. transplanted heart: [place] heart Associated angina: without angina Qualified Code(s): I25.10 - Atherosclerotic heart disease of [place] coronary artery without angina pectoris Category: Medical Code(s): I25.10 - Atherosclerotic heart disease of [place] coronary artery without angina pectoris (8) STACY (acute kidney injury) Current visit: Yes Status: Acute Category: Medical Code(s): N17.9 - Acute kidney failure, unspecified (9) Complicated UTI (urinary tract infection) Current visit: Yes Status: Acute Category: Medical Code(s): N39.0 - Urinary tract infection, site not specified (10) Diabetes 1.5, managed as type 2 Current visit: Yes Status: Acute Category: Medical Code(s): E13.9 - Other specified diabetes mellitus without complications
--- NOTE | 2019-03-11 20:58 | Sepsis Event Note ---
[facility] Tissue Perfusion Eval Sepsis Re-Evaluation Performed: Yes Date Performed: 03/11/19 Time Performed: 20:00
[2019-03-11 22:28] LABS: Anion Gap 24.1 mEq/L (5-15); Chloride 103 mmol/L (98-107); Glucose 126 mg/dL (74-106); Sodium 129 mmol/L (136-145)
[2019-03-11 22:38] LABS: Acetone, Serum (Rapid) None Detected (None Detect)
[2019-03-11 22:58] LABS: Blood Urea Nitrogen 111 mg/dL (7-18); Carbon Dioxide 6 mmol/L (21.0-32.0)
[2019-03-11 23:03] LABS: Calcium 7.9 mg/dL (8.5-10.1)
[2019-03-12 06:34] LABS: Albumin Level 2.6 gm/dL (3.4-5.0); Albumin/Globulin Ratio 0.7 (1.1-1.8); Anion Gap 25.2 mEq/L (5-15); Basophils % 0.2 % (0.1-2.0); Bilirubin,Total 0.2 mg/dL (0.2-1.0); Eosinophils % 0.1 % (0.1-12.0); Globulin 3.9 gm/dl (1.3-3.2); Hematocrit 42.1 % (37.0-47.0); Lymphocytes # 12.6 K/mm3 (0.7-4.5); Lymphocytes % 67.9 % (10-50); Mean Corpuscular HGB Conc 31.5 g/dL (31.8-35.4); Mean Corpuscular Volume 95.4 fl (81-99); Monocytes # 5.4 K/mm3 (0.1-1.0); Monocytes % 29.3 % (1.7-9.3); Neutrophils # 0.5 K/mm3 (1.8-7.8); Platelet Count 257 K/mm3 (142-424); Red Blood Count 4.41 M/mm3 (4.20-5.40); Red Cell Distribution Width 14.1 % (11.5-17.5); Total Protein,Serum 6.5 gm/dL (6.4-8.2); White Blood Count 18.5 K/mm3 (4.8-10.8)
[2019-03-12 06:38] LABS: Neutrophils % 2.5 % (37.0-80.0)
[2019-03-12 06:39] LABS: Hemoglobin 13.2 g/dL (12.2-16.2)
--- NOTE | 2019-03-12 08:54 | Progress Note ---
Internal Medicine - PN: Subj *Date: 03/12/19 *Time: 08:51 Interval history: pt sitting up in bed voiced no c/o. pt more alert Exam Vital signs and Labs for Last 24 Hours: Temp Pulse Resp BP Pulse Ox 98.3 F 70 18 98/52 L 100 03/12/19 06:00 03/12/19 08:00 03/12/19 08:00 03/12/19 08:00 03/12/19 08:00 Laboratory Results - last 24 hr 03/11/19 13:50: Lactate 0.3 L 03/11/19 14:45: Urine Color Yellow, Urine Appearance Clear, Urine pH >= 9.0 H, Ur Specific [place] 1.010, Urine Protein 1+, Urine Glucose (UA) Negative, Urine Ketones Negative, Urine Blood Trace-i, Urine Nitrate Negative, Urine Bilirubin Negative, Urine Urobilinogen 0.2, Ur Leukocyte Esterase 2+ A, Urine WBC 10-20, Ur Squamous Epith Cells 5-10, Triple Phos Crystals Trace, Urine Bacteria Trace 03/11/19 15:14: WBC 21.9 H*, RBC 5.19, Hgb 15.2, Hct 50.8 H, MCV 97.9, MCH 29.3, MCHC 29.9 L, RDW 14.3, Plt Count 284, MPV 10.2, Neut % (Auto) 85.1 H, Lymph % (Auto) 9.3 L, [place] % (Auto) 4.9, Eos % (Auto) 0.5, Baso % (Auto) 0.3, Neut # (Auto) 18.7 H, Lymph # (Auto) 2.0, [place] # (Auto) 1.1 H, Eos # (Auto) 0.1, Baso # (Auto) 0.1, Total Counted 100, Neutrophils % (Manual) 90 H, Lymphocytes % (Manual) 7 L, Monocytes % (Manual) 3, Platelet Estimate Marked increase, RBC Morphology Normal 03/11/19 15:17: Sodium 127 L, Potassium 5.2 H, Chloride 96 L, Carbon Dioxide 7 L*, Anion Gap 29.2 H, BUN 125 H*, Creatinine 3.95 H, Estimated Creat Clear 17, Estimated GFR 12 L*, Est GFR ( Amer) 14 L*, Glucose 283 H, Calcium 9.6, Magnesium 2.7 H, Total Bilirubin 0.2, AST 9 L, ALT 12, Alkaline Phosphatase 188 H, Total Protein 8.5 H, Albumin 3.5, Globulin 5.0 H, Albumin/Globulin Ratio 0.7 L 03/11/19 17:08: POC Glucose 322 H* 03/11/19 21:23: POC Glucose 124 H 03/11/19 22:13: Sodium 129 L, Potassium 4.1 D, Chloride 103, Carbon Dioxide 6 L* D, Anion Gap 24.1 H, BUN 111 H*, Creatinine 3.49 H, Estimated Creat Clear 19, Estimated GFR 14 L*, Est GFR ( Amer) 16 L*, Glucose 126 H D, Calcium 7.9 L D, Acetone Level None detected 03/12/19 05:42: POC Glucose 229 H 03/12/19 05:50: WBC 18.5 H, RBC 4.41, Hgb 13.2 D, Hct 42.1, MCV 95.4, MCH 30.0, MCHC 31.5 L, RDW 14.1, Plt Count 257, MPV 9.0, Neut % (Auto) 2.5 L, Lymph % (Auto) 67.9 H, [place] % (Auto) 29.3 H D, Eos % (Auto) 0.1, Baso % (Auto) 0.2, Neut # (Auto) 0.5 L*, Lymph # (Auto) 12.6 H, [place] # (Auto) 5.4 H, Eos # (Auto) 0.0, Baso # (Auto) 0.0 03/12/19 05:50: Sodium 130 L, Potassium 4.2, Chloride 103, Carbon Dioxide 6 L*, Anion Gap 25.2 H, BUN 110 H*, Creatinine 3.40 H, Estimated Creat Clear 21, Estimated GFR 14 L*, Est GFR ( Amer) 17 L*, Glucose 219 H D, Calcium 8.0 L, Total Bilirubin 0.2, AST 16 D, ALT 8 L D, Alkaline Phosphatase 143 H, Total Protein 6.5, Albumin 2.6 L D, Globulin 3.9 H, Albumin/Globulin Ratio 0.7 L I & O for Last 24 hours: Intake & Output 03/09/19 03/10/19 03/11/19 03/12/19 11:59 11:59 11:59 11:59 Intake Total 4680 / 4680 Output Total 1725 / 1725 Balance 2955 / 2955 Weight 156 lb 8 oz - Constitutional morbidly obese, chronically ill appearing - *Routine HEENT Exam Head: Present: normocephalic Eye: Present: PERRL ENT: Present: mucous membranes moist - *Routine Neck Exam Present: supple, full ROM. Absent: lymphadenopathy - *Routine Respiratory Exam Present: decreased breath sounds, CTA bilaterally - *Routine Cardiovascular Exam Present: RRR - *Routine Abdominal Exam Present: soft, normoactive bowel sounds. Absent: tenderness - *Routine Extremities Exam Present: full ROM, normal capillary refill. Absent: cyanosis, clubbing, edema - *Routine Skin Exam Present: warm. Absent: rash Comments: under skin folds red small open areas with yeast odor. - *Routine Neurological Exam Present: alert, oriented X3 - Routine Psychiatric Exam Present: normal affect Assessment and Plan (1) Severe sepsis with acute organ dysfunction Current visit: Yes Status: Acute Category: Medical Code(s): A41.9 - Sepsis, unspecified organism; R65.20 - Severe sepsis without septic shock (2) Septic shock Current visit: Yes Status: Acute Category: Medical Code(s): A41.9 - Sepsi s, unspecified organism; R65.21 - Severe sepsis with septic shock (3) Presence of urostomy Current visit: No Status: Acute Category: Medical Code(s): Z93.6 - Other artificial openings of urinary tract status (4) AICD (automatic cardioverter/defibrillator) present Current visit: No Status: Chronic Category: Surgical Code(s): Z95.810 - Presence of automatic (implantable) cardiac defibrillator (5) Bladder cancer Current visit: No Status: Acute Category: Medical Code(s): C67.9 - Malignant neoplasm of bladder, unspecified (6) Hypothyroidism (acquired) Current visit: No Status: Chronic Category: Medical Code(s): E03.9 - Hypothyroidism, unspecified (7) CAD (coronary artery disease) Current visit: No Status: Chronic Qualifiers: Coronary Disease-Associated Artery/Lesion type: [place] artery [place] vs. transplanted heart: [place] heart Associated angina: without angina Qualified Code(s): I25.10 - Atherosclerotic heart disease of [place] coronary artery without angina pectoris Category: Medical Code(s): I25.10 - Atherosclerotic heart disease of [place] coronary artery without angina pectoris (8) STACY (acute kidney injury) Current visit: Yes Status: Acute Category: Medical Code(s): N17.9 - Acute kidney failure, unspecified (9) Complicated UTI (urinary tract infection) Current visit: Yes Status: Acute Category: Medical Code(s): N39.0 - Urinary tract infection, site not specified (10) Diabetes 1.5, managed as type 2 Current visit: Yes Status: Acute Category: Medical Code(s): E13.9 - Other specified diabetes mellitus without complications (11) Yeast infection of the skin Current visit: Yes Status: Acute Category: Medical Code(s): B37.2 - Candidiasis of skin and nail (12) Yeast infection of the vagina Current visit: Yes Status: Acute Category: Medical Code(s): B37.3 - Candidiasis of vulva and vagina - Assessment and plan all Dx Assessment and Plan for all problems:: rounded with dr bowen all orders per kwame [place] to see pt increase fluids recheck bmp at 1400
--- NOTE | 2019-03-12 09:05 | Pharmacy Consult Notes ---
- Pharmacy Consult Date: 03/12/19 Time: 09:01 Referring provider: DR. DAWKINS Reason for Consult:: VANCOMYCIN DOSING Allergies and ADEs:: Allergies Allergy/AdvReac Type Severity Reaction Status Date / Time No Known Allergies Allergy Verified 03/11/19 11:13 Home Medications:: Home Medications Medication Instructions Recorded Confirmed Type aspirin 81 mg tablet,delayed 81 mg PO DAILY #90 tab 01/21/19 03/11/19 Rx release cholecalciferol (vitamin D3) 25 1,000 unit PO DAILY #30 tab 02/13/19 03/11/19 Rx mcg (1,000 unit) tablet zolpidem 5 mg tablet 5 mg PO HSP PRN #30 tab 02/13/19 03/11/19 Rx Ondansetron [Zofran 4mg ODT] 4 mg PO Q4HP PRN 10 Days #30 03/06/19 03/11/19 Rx tab.rapdis Atorvastatin Calcium [Atorvastatin 40 mg PO DAILY 03/11/19 03/11/19 History 40mg Tab] Escitalopram Oxalate [Lexapro] 20 mg PO DAILY 03/11/19 03/11/19 History Fluconazole [Diflucan 200mg tablet] 200 mg PO DAILY 03/11/19 03/11/19 History Furosemide [Furosemide 20mg Tab] 20 mg PO DAILY 03/11/19 03/11/19 History Insulin NPH Hum/Reg Insulin Hm 30 unit SQ BID 03/11/19 03/11/19 History [Relion Novolin 70-30 Vial] Levothyroxine Sodium [Synthroid 25 mcg PO DAILY 03/11/19 03/11/19 History 25mcg (0.025mg) tablet] Nystatin [Nystatin Topical Powder 1 applicatio TP QID 03/11/19 03/11/19 History 30GM*] Sulfamethoxazole/Trimethoprim 1 each PO BID 03/11/19 03/11/19 History [Bactrim DS tablet] ALPRAZolam [Xanax 0.5mg tab] 0.5 mg PO TIDP PRN 03/12/19 03/12/19 History Clopidogrel Bisulfate [Plavix 75mg 75 mg PO DAILY 03/12/19 03/11/19 History Tab] Ergocalciferol (Vitamin D2) 50,000 unit PO WEEKLY 03/12/19 03/12/19 History [Drisdol] Gabapentin [Gabapentin 300mg Cap] 300 mg PO HS 03/12/19 03/11/19 History carvediloL [Carvedilol 6.25mg Tab] 6.25 mg PO BID 03/12/19 03/11/19 History dilTIAZem HCL [Cardizem CD 120mg 120 mg PO DAILY 03/12/19 03/11/19 History Cap] lisinopriL [Lisinopril 2.5mg Tab] 2.5 mg PO DAILY 03/12/19 03/11/19 History Height: 1.55 m Weight: 70.987 kg Laboratory Results:: Laboratory Results - last 24 hr 03/11/19 13:50: Lactate 0.3 L 03/11/19 14:45: Urine Color Yellow, Urine Appearance Clear, Urine pH >= 9.0 H, Ur Specific [place] 1.010, Urine Protein 1+, Urine Glucose (UA) Negative, Urine Ketones Negative, Urine Blood Trace-i, Urine Nitrate Negative, Urine Bilirubin Negative, Urine Urobilinogen 0.2, Ur Leukocyte Esterase 2+ A, Urine WBC 10-20, Ur Squamous Epith Cells 5-10, Triple Phos Crystals Trace, Urine Bacteria Trace 03/11/19 15:14: WBC 21.9 H*, RBC 5.19, Hgb 15.2, Hct 50.8 H, MCV 97.9, MCH 29.3, MCHC 29.9 L, RDW 14.3, Plt Count 284, MPV 10.2, Neut % (Auto) 85.1 H, Lymph % (Auto) 9.3 L, [place] % (Auto) 4.9, Eos % (Auto) 0.5, Baso % (Auto) 0.3, Neut # (Auto) 18.7 H, Lymph # (Auto) 2.0, [place] # (Auto) 1.1 H, Eos # (Auto) 0.1, Baso # (Auto) 0.1, Total Counted 100, Neutrophils % (Manual) 90 H, Lymphocytes % (Manual) 7 L, Monocytes % (Manual) 3, Platelet Estimate Marked increase, RBC Morphology Normal 03/11/19 15:17: Sodium 127 L, Potassium 5.2 H, Chloride 96 L, Carbon Dioxide 7 L*, Anion Gap 29.2 H, BUN 125 H*, Creatinine 3.95 H, Estimated Creat Clear 17, Estimated GFR 12 L*, Est GFR ( Amer) 14 L*, Glucose 283 H, Calcium 9.6, Magnesium 2.7 H, Total Bilirubin 0.2, AST 9 L, ALT 12, Alkaline Phosphatase 188 H, Total Protein 8.5 H, Albumin 3.5, Globulin 5.0 H, Albumin/Globulin Ratio 0.7 L 03/11/19 17:08: POC Glucose 322 H* 03/11/19 21:23: POC Glucose 124 H 03/11/19 22:13: Sodium 129 L, Potassium 4.1 D, Chloride 103, Carbon Dioxide 6 L* D, Anion Gap 24.1 H, BUN 111 H*, Creatinine 3.49 H, Estimated Creat Clear 19, Estimated GFR 14 L*, Est GFR ( Amer) 16 L*, Glucose 126 H D, Calcium 7.9 L D, Acetone Level None detected 03/12/19 05:42: POC Glucose 229 H 03/12/19 05:50: WBC 18.5 H, RBC 4.41, Hgb 13.2 D, Hct 42.1, MCV 95.4, MCH 30.0, MCHC 31.5 L, RDW 14.1, Plt Count 257, MPV 9.0, Neut % (Auto) 2.5 L, Lymph % (Auto) 67.9 H, [place] % (Auto) 29.3 H D, Eos % (Auto) 0.1, Baso % (Auto) 0.2, Neut # (Auto) 0.5 L*, Lymph # (Auto) 12.6 H, [place] # (Auto) 5.4 H, Eos # (Auto) 0.0, Baso # (Auto) 0.0 03/12/19 05:50: Sodium 130 L, Potassium 4.2, Chloride 103, Carbon Dioxide 6 L*, Anion Gap 25.2 H, BUN 110 H*, Creatinine 3.40 H, Estimated Creat Clear 21, Estimated GFR 14 L*, Est GFR ( Amer) 17 L*, Glucose 219 H D, Calcium 8.0 L, Total Bilirubin 0.2, AST 16 D, ALT 8 L D, Alkaline Phosphatase 143 H, Total Protein 6.5, Albumin 2.6 L D, Globulin 3.9 H, Albumin/Globulin Ratio 0.7 L 03/12/19 07:48: Troponin I < 0.02 Medical History: Reports:: Cancer, Carotid Stenosis, Congestive Heart Failure, Coronary Artery Disease, Diabetes Mellitus Type 2, Hyperlipidemia, Hypertension, Internal Pacemaker, Myocardial Infarction, Peripheral Artery Disease, Peripheral Vascular Disease Denies:: Diabetes Mellitus Type 1, MRSA Assessment and Plan (1) Severe sepsis with acute organ dysfunction Current visit: Yes Status: Acute Category: Medical Code(s): A41.9 - Sepsis, unspecified organism; R65.20 - Severe sepsis without septic shock (2) Septic shock Current visit: Yes Status: Acute Category: Medical Code(s): A41.9 - Sepsis, unspecified organism; R65.21 - Severe sepsis with septic shock (3) Presence of urostomy Current visit: No Status: Acute Category: Medical Code(s): Z93.6 - Other artificial openings of urinary tract status (4) AICD (automatic cardioverter/defibrillator) present Current visit: No Status: Chronic Category: Surgical Code(s): Z95.810 - Presence of automatic (implantable) cardiac defibrillator (5) Bladder cancer Current visit: No Status: Acute Category: Medical Code(s): C67.9 - Malignant neoplasm of bladder, unspecified (6) Hypothyroidism (acquired) Current visit: No Status: Chronic Category: Medical Code(s): E03.9 - Hypothyroidism, unspecified (7) CAD (coronary artery disease) Current visit: No Status: Chronic Qualifiers: Coronary Disease-Associated Artery/Lesion type: [place] artery [place] vs. transplanted heart: [place] heart Associated angina: without angina Qualified Code(s): I25.10 - Atherosclerotic heart disease of [place] coronary artery without angina pectoris Category: Medical Code(s): I25.10 - Atherosclerotic heart disease of [place] coronary artery without angina pectoris (8) STACY (acute kidney injury) Current visit: Yes Status: Acute Category: Medical Code(s): N17.9 - Acute kidney failure, unspecified (9) Complicated UTI (urinary tract infection) Current visit: Yes Status: Acute Category: Medical Code(s): N39.0 - Urinary tract infection, site not specified (10) Diabetes 1.5, managed as type 2 Current visit: Yes Status: Acute Category: Medical Code(s): E13.9 - Other specified diabetes mellitus without complications (11) Yeast infection of the skin Current visit: Yes Status: Acute Category: Medical Code(s): B37.2 - Candidiasis of skin and nail (12) Yeast infection of the vagina Current visit: Yes Status: Acute Category: Medical Code(s): B37.3 - Candidiasis of vulva and vagina - Assessment and plan all Dx Assessment and Plan for all problems:: BASED ON PATIENT'S FACTORS, RECOMMEND CONTINUING WITH VANCOMYCIN 1 GM Q48H. PATIENT RECEIVED VANCOMYCIN 1750 MG X1 DOSE ON ADMISSION ON 03/11/19. NEXT DOSE SCHEDULED FOR 03/13/19. WILL OBTAIN VANCOMYCIN TROUGH LEVEL PRIOR TO HER NEXT DOSE DUE TO POOR RENAL FUNCTION. MD CONSULTED ABOUT INTERACTION BETWEEN ZOSYN AND VANCOMYCIN ALONG WITH PATIENT'S POOR RENAL FUNCTION AT THIS TIME. OKAY WITH SWITCHING TO CEFEPIME INSTEAD OF ZOSYN.
[2019-03-12 09:25] LABS: Eosinophils % 1 % (0-3); Hypochromasia 1+; Lymphocytes % 10 % (10-50); Monocytes % 5 % (2-9); Neutrophils % 84 % (42-76); Total Cells Counted 100
[2019-03-12 14:22] LABS: Anion Gap 22.2 mEq/L (5-15); Calcium 7.4 mg/dL (8.5-10.1)
--- NOTE | 2019-03-12 16:53 | Consult Report ---
*Admission Date: 03/11/19 *Reason for consult:: Cellulitis of urostomy site *History of present illness: Patient is a 58-year-old white female with a history of bladder cancer status post radical cystectomy and ileal conduit at the [facility] 15 years ago at the age of 42. He was referred now for cellulitis of her ostomy site. He is also possibility that the ostomy site is leaking causing some irritation of her pelvic regions. Patient denies any problems with her ostomy site that the bag is not leaking. He does state irritation down into the pelvic region. [facility] History Medical History: Reports:: Cancer, Carotid Stenosis, Congestive Heart Failure, C oronary Artery Disease, Diabetes Mellitus Type 2, Hyperlipidemia, Hypertension, Internal Pacemaker, Myocardial Infarction, Peripheral Artery Disease, Peripheral Vascular Disease Denies:: Diabetes Mellitus Type 1, MRSA *Have you ever received a pneumonia vaccine?: No *Have you received a flu vaccine this season?: Yes Other Medical History: Reports: Chemotherapy, Hypothyroidism Other Surgeries: Yes: No Previous Surgery, Cancer Surgery, Cardiac Catheterization, Cardiac Surgery, Cholecystectomy, , Hysterectomy- Total, Open Heart Surgery, Pacemaker, Other (bladder removed) Amputation: No Fractures: No - *Social History Smoking Status: Current every day smoker Tobacco Type: cigarettes # Packs/Day (cigarettes): 10 Alcohol Intake: never Substance Use Type: denies use, crack/cocaine, hallucinogens, inhalants *Occupational Status:: unemployed, disabled Housing: house Household Members: spouse, children, other *Travel in the last 8 weeks: None Family Hx:: Cancer, Coronary Artery Disease, Diabetes, Hyperlipidemia, Hypertension, Stroke Review of Systems - Review of Systems Review of systems:: pertinent systems reviewed and negative unless documented below - *Neurologic Reports weakness, Denies localized weakness, Denies headache(s), Denies tingling/numbness/burning sensations, Denies seizure-like activity Meds Home Medications Medication Instructions Recorded Confirmed Type aspirin 81 mg tablet,delayed 81 mg PO DAILY #90 tab 01/21/19 03/11/19 Rx release cholecalciferol (vitamin D3) 25 1,000 unit PO DAILY #30 tab 02/13/19 03/11/19 Rx mcg (1,000 unit) tablet zolpidem 5 mg tablet 5 mg PO HSP PRN #30 tab 02/13/19 03/11/19 Rx Ondansetron [Zofran 4mg ODT] 4 mg PO Q4HP PRN 10 Days #30 03/06/19 03/11/19 Rx tab.rapdis Atorvastatin Calcium [Atorvastatin 40 mg PO DAILY 03/11/19 03/11/19 History 40mg Tab] Escitalopram Oxalate [Lexapro] 20 mg PO DAILY 03/11/19 03/11/19 History Fluconazole [Diflucan 200mg tablet] 200 mg PO DAILY 03/11/19 03/11/19 History Furosemide [Furosemide 20mg Tab] 20 mg PO DAILY 03/11/19 03/11/19 History Insulin NPH Hum/Reg Insulin Hm 30 unit SQ BID 03/11/19 03/11/19 History [Relion Novolin 70-30 Vial] Levothyroxine Sodium [Synthroid 25 mcg PO DAILY 03/11/19 03/11/19 History 25mcg (0.025mg) tablet] Nystatin [Nystatin Topical Powder 1 applicatio TP QID 03/11/19 03/11/19 History 30GM*] Sulfamethoxazole/Trimethoprim 1 each PO BID 03/11/19 03/11/19 History [Bactrim DS tablet] ALPRAZolam [Xanax 0.5mg tab] 0.5 mg PO TIDP PRN 03/12/19 03/12/19 History Clopidogrel Bisulfate [Plavix 75mg 75 mg PO DAILY 03/12/19 03/11/19 History Tab] Ergocalciferol (Vitamin D2) 50,000 unit PO WEEKLY 03/12/19 03/12/19 History [Drisdol] Gabapentin [Gabapentin 300mg Cap] 300 mg PO HS 03/12/19 03/11/19 History carvediloL [Carvedilol 6.25mg Tab] 6.25 mg PO BID 03/12/19 03/11/19 History dilTIAZem HCL [Cardizem CD 120mg 120 mg PO DAILY 03/12/19 03/11/19 History Cap] lisinopriL [Lisinopril 2.5mg Tab] 2.5 mg PO DAILY 03/12/19 03/11/19 History Allergies Allergy/AdvReac Type Severity Reaction Status Date / Time No Known Allergies Allergy Verified 03/11/19 11:13 Exam Vital signs and Labs for Last 24 Hours: Temp Pulse Resp BP Pulse Ox 98.3 F 70 18 94/51 L 100 03/12/19 06:00 03/12/19 16:00 03/12/19 15:30 03/12/19 15:30 03/12/19 15:50 Laboratory Results - last 24 hr 03/11/19 15:14: WBC 21.9 H*, RBC 5.19, Hgb 15.2, Hct 50.8 H, MCV 97.9, MCH 29.3, MCHC 29.9 L, RDW 14.3, Plt Count 284, MPV 10.2, Neut % (Auto) 85.1 H, Lymph % (Auto) 9.3 L, [place] % (Auto) 4.9, Eos % (Auto) 0.5, Baso % (Auto) 0.3, Neut # (Auto) 18.7 H, Lymph # (Auto) 2.0, [place] # (Auto) 1.1 H, Eos # (Auto) 0.1, Baso # (Auto) 0.1, Total Counted 100, Neutrophils % (Manual) 90 H, Lymphocytes % (Manual) 7 L, Monocytes % (Manual) 3, Platelet Estimate Marked increase, RBC Morphology Normal 03/11/19 15:17: Sodium 127 L, Potassium 5.2 H, Chloride 96 L, Carbon Dioxide 7 L*, Anion Gap 29.2 H, BUN 125 H*, Creatinine 3.95 H, Estimated Creat Clear 17, Estimated GFR 12 L*, Est GFR ( Amer) 14 L*, Glucose 283 H, Calcium 9.6, Magnesium 2.7 H, Total Bilirubin 0.2, AST 9 L, ALT 12, Alkaline Phosphatase 188 H, Total Protein 8.5 H, Albumin 3.5, Globulin 5.0 H, Albumin/Globulin Ratio 0.7 L 03/11/19 17:08: POC Glucose 322 H* 03/11/19 21:23: POC Glucose 124 H 03/11/19 22:13: Sodium 129 L, Potassium 4.1 D, Chloride 103, Carbon Dioxide 6 L* D, Anion Gap 24.1 H, BUN 111 H*, Creatinine 3.49 H, Estimated Creat Clear 19, Estimated GFR 14 L*, Est GFR ( Amer) 16 L*, Glucose 126 H D, Calcium 7.9 L D, Acetone Level None detected 03/12/19 05:42: POC Glucose 229 H 03/12/19 05:50: WBC 18.5 H, RBC 4.41, Hgb 13.2 D, Hct 42.1, MCV 95.4, MCH 30.0, MCHC 31.5 L, RDW 14.1, Plt Count 257, MPV 9.0, Neut % (Auto) 2.5 L, Lymph % (Auto) 67.9 H, [place] % (Auto) 29.3 H D, Eos % (Auto) 0.1, Baso % (Auto) 0.2, Neut # (Auto) 0.5 L*, Lymph # (Auto) 12.6 H, [place] # (Auto) 5.4 H, Eos # (Auto) 0.0, Baso # (Auto) 0.0, Total Counted 100, Neutrophils % (Manual) 84 H, Lymphocytes % (Manual) 10, Monocytes % (Manual) 5, Eosinophils % (Manual) 1, Platelet Estimate Normal, Hypochromasia 1+ 03/12/19 05:50: Sodium 130 L, Potassium 4.2, Chloride 103, Carbon Dioxide 6 L*, Anion Gap 25.2 H, BUN 110 H*, Creatinine 3.40 H, Estimated Creat Clear 21, Estimated GFR 14 L*, Est GFR ( Amer) 17 L*, Glucose 219 H D, Calcium 8.0 L, Total Bilirubin 0.2, AST 16 D, ALT 8 L D, Alkaline Phosphatase 143 H, Total Protein 6.5, Albumin 2.6 L D, Globulin 3.9 H, Albumin/Globulin Ratio 0.7 L 03/12/19 07:48: Troponin I < 0.02 03/12/19 11:26: POC Glucose 213 H 03/12/19 14:04: Sodium 136, Potassium 3.2 L D, Chloride 109 H, Carbon Dioxide 8 L* D, Anion Gap 22.2 H, BUN 84 H, Creatinine 2.81 H, Estimated Creat Clear 25, Estimated GFR 17 L*, Est GFR ( Amer) 21 L D, Glucose 203 H, Calcium 7.4 L I & O for Last 24 hours: Intake & Output 03/09/19 03/10/19 03/11/19/30/20 23:59 23:59 23:59 23:59 Intake Total 6969 / 3787 5396 / 5396 Output Total 725 / 925 2250 / 2250 Balance 1794 / 2862 3146 / 3146 Weight 68.294 kg 70.987 kg Microbiology Reports for the Last 24 Hours: Microbiology 03/11/19 14:45 Urine,Clean Catch Urine Culture - Preliminary Narrative: Moderately obese white female in no apparent distress Pupils equal round react light Neck is symmetric Normal respiratory effort Abdomen is obese, the ostomy is in the right lower quadrant, the ostomy itself is pink, the ostomy bag seems to be sealed appropriately and there is no evidence of any skin breakdown around the ostomy or bag sites. In the groin and genitalia there is significant to have purplish discoloration and couple of ulcers on the suprapubic region as well as some weeping of the skin. Alert and oriented x3 Internal Medicine - CN: Reslt - Labs CBC & Chem 7: 03/12/19 05:50 03/12/19 14:04 Labs: Short CBC 03/11/19 03/12/19 Range/Units 15:14 05:50 WBC 21.9 H* 18.5 H (4.8-10.8) K/mm3 Hgb 15.2 13.2 D (12.2-16.2) g/dL Hct 50.8 H 42.1 (37.0-47.0) % Plt Count 284 257 (142-424) K/mm3 BMP 03/11/19 03/11/19 03/12/19 15:17 22:13 05:50 Sodium 127 L 129 L 130 L Potassium 5.2 H 4.1 D 4.2 Chloride 96 L 103 103 Carbon Dioxide 7 L* 6 L* D 6 L* BUN 125 H* 111 H* 110 H* Creatinine 3.95 H 3.49 H 3.40 H Glucose 283 H 126 H D 219 H D Calcium 9.6 7.9 L D 8.0 L 03/12/19 14:04 Sodium 136 Potassium 3.2 L D Chloride 109 H Carbon Dioxide 8 L* D BUN 84 H Creatinine 2.81 H Glucose 203 H Calcium 7.4 L Cardiac Enzymes 03/12/19 Range/Units 07:48 Troponin I < 0.02 (0.00-0.06) ng/ml Liver Function 03/11/19 03/12/19 Range/Units 15:17 05:50 Total Bilirubin 0.2 0.2 (0.2-1.0) mg/dL AST 9 L 16 D (15-37) U/L ALT 12 8 L D (12-78) U/L Alkaline Phosphatase 188 H 143 H (46-116) U/L Albumin 3.5 2.6 L D (3.4-5.0) gm/dL Assessment and Plan (1) Severe sepsis with acute organ dysfunction Current visit: Yes Status: Acute Category: Medical Code(s): A41.9 - Sepsis, unspecified organism; R65.20 - Severe sepsis without septic shock (2) Septic shock Current visit: Yes Status: Acute Category: Medical Code(s): A41.9 - Sepsis, unspecified organism; R65.21 - Severe sepsis with septic shock (3) Presence of urostomy Current visit: No Status: Acute Category: Medical Code(s): Z93.6 - Other artificial openings of urinary tract status 58-year-old white female with a distant history of bladder cancer status post cystectomy and ileal conduit. Her ostomy site and plan site appears normal. She does have a significant amount of cellulitis in the suprapubic groin and genital region. She is starting to be treated now with some nystatin powder and a skin barrier. Does not appear to be any leakage of urine from the ostomy site itself. (4) AICD (automatic cardioverter/defibrillator) present Current visit: No Status: Chronic Category: Surgical Code(s): Z95.810 - Presence of automatic (implantable) cardiac defibrillator (5) Bladder cancer Current visit: No Status: Acute Category: Medical Code(s): C67.9 - Malignant neoplasm of bladder, unspecified (6) Hypothyroidism (acquired) Current visit: No Status: Chronic Category: Medical Code(s): E03.9 - Hypo thyroidism, unspecified (7) CAD (coronary artery disease) Current visit: No Status: Chronic Qualifiers: Coronary Disease-Associated Artery/Lesion type: [place] artery [place] vs. transplanted heart: [place] heart Associated angina: without angina Qualified Code(s): I25.10 - Atherosclerotic heart disease of [place] coronary artery without angina pectoris Category: Medical Code(s): I25.10 - Atherosclerotic heart disease of [place] coronary artery without angina pectoris (8) STACY (acute kidney injury) Current visit: Yes Status: Acute Category: Medical Code(s): N17.9 - Acute kidney failure, unspecified (9) Complicated UTI (urinary tract infection) Current visit: Yes Status: Acute Category: Medical Code(s): N39.0 - [place] nary tract infection, site not specified (10) Diabetes 1.5, managed as type 2 Current visit: Yes Status: Acute Category: Medical Code(s): E13.9 - Other specified diabetes mellitus without complications (11) Yeast infection of the skin Current visit: Yes Status: Acute Category: Medical Code(s): B37.2 - Candidiasis of skin and nail (12) Yeast infection of the vagina Current visit: Yes Status: Acute Category: Medical Code(s): B37.3 - Candidiasis of vulva and vagina
[2019-03-12 21:13] LABS: Anion Gap 19.1 mEq/L (5-15); Calcium 7.5 mg/dL (8.5-10.1)
[2019-03-13 05:57] LABS: Basophils % 0.2 % (0.1-2.0); Eosinophils # 0.2 K/mm3 (0.0-0.4); Eosinophils % 1.5 % (0.1-12.0); Hematocrit 35.9 % (37.0-47.0); Lymphocytes # 1.6 K/mm3 (0.7-4.5); Lymphocytes % 12.1 % (10-50); Mean Corpuscular HGB Conc 31.5 g/dL (31.8-35.4); Mean Corpuscular Volume 93.6 fl (81-99); Mean Platelet Volume 9.2 fl (7.4-10.4); Monocytes # 0.5 K/mm3 (0.1-1.0); Neutrophils # 11.1 K/mm3 (1.8-7.8); Neutrophils % 82.3 % (37.0-80.0); Platelet Count 252 K/mm3 (142-424); Red Blood Count 3.84 M/mm3 (4.20-5.40); Red Cell Distribution Width 14.4 % (11.5-17.5); White Blood Count 13.5 K/mm3 (4.8-10.8)
[2019-03-13 06:03] LABS: Anion Gap 19.8 mEq/L (5-15); Calcium 7.5 mg/dL (8.5-10.1)
[2019-03-13 06:31] LABS: Hemoglobin 11.3 g/dL (12.2-16.2)
--- NOTE | 2019-03-13 08:45 | Progress Note ---
Internal Medicine - PN: Subj *Date: 03/13/19 *Time: 08:42 Interval history: pt sitting up in chair. more alert skin less red Exam Vital signs and Labs for Last 24 Hours: Temp Pulse Resp BP Pulse Ox 97.5 F L 70 16 101/46 L 100 03/13/19 08:00 03/13/19 08:00 03/13/19 08:00 03/13/19 08:00 03/13/19 08:00 Laboratory Results - last 24 hr 03/11/19 14:45: Urine Color Yellow, Urine Appearance Clear, Urine pH >= 9.0 H, Ur Specific [place] 1.010, Urine Protein 1+, Urine Glucose (UA) Negative, Urine Ketones Negative, Urine Blood Trace-i, Urine Nitrate Negative, Urine Bilirubin Negative, Urine Urobilinogen 0.2, Ur Leukocyte Esterase 2+ A, Urine WBC 10-20, Ur Squamous Epith Cells 5-10, Triple Phos Crystals Trace, Urine Bacteria Trace 03/12/19 05:50: Total Counted 100, Neutrophils % (Manual) 84 H, Lymphocytes % (Manual) 10, Monocytes % (Manual) 5, Eosinophils % (Manual) 1, Platelet Estimate Normal, Hypochromasia 1+ 03/12/19 07:48: Troponin I < 0.02 03/12/19 11:26: POC Glucose 213 H 03/12/19 14:04: Sodium 136, Potassium 3.2 L D, Chloride 109 H, Carbon Dioxide 8 L* D, Anion Gap 22.2 H, BUN 84 H, Creatinine 2.81 H, Estimated Creat Clear 25, Estimated GFR 17 L*, Est GFR ( Amer) 21 L D, Glucose 203 H, Calcium 7.4 L 03/12/19 16:53: POC Glucose 138 H 03/12/19 20:08: POC Glucose 108 03/12/19 20:54: Sodium 139, Potassium 3.1 L, Chloride 113 H, Carbon Dioxide 10 L D, Anion Gap 19.1 H, BUN 71 H, Creatinine 2.47 H, Estimated Creat Clear 29, Estimated GFR 20 L, Est GFR ( Amer) 24 L, Glucose 104 D, Calcium 7.5 L 03/13/19 05:19: POC Glucose 126 H 03/13/19 05:32: WBC 13.5 H D, RBC 3.84 L, Hgb 11.3 L D, Hct 35.9 L, MCV 93.6, MCH 29.5, MCHC 31.5 L, RDW 14.4, Plt Count 252, MPV 9.2, Neut % (Auto) 82.3 H, Lymph % (Auto) 12.1, [place] % (Auto) 4.0, Eos % (Auto) 1.5, Baso % (Auto) 0.2, Neut # (Auto) 11.1 H, Lymph # (Auto) 1.6, [place] # (Auto) 0.5, Eos # (Auto) 0.2, Baso # (Auto) 0.0 03/13/19 05:32: Sodium 140, Potassium 2.8 L*, Chloride 113 H, Carbon Dioxide 10 L, Anion Gap 19.8 H, BUN 55 H, Creatinine 1.99 H, Estimated Creat Clear 35, Estimated GFR 26 L, Est GFR ( Amer) 31 L D, Glucose 113 H, Calcium 7.5 L I & O for Last 24 hours: Intake & Output 03/10/19 03/11/19 03/12/19 03/13/19 11:59 11:59 11:59 11:59 Intake Total 4680 / 4680 3855 / 3855 Output Total 1725 / 1725 4300 / 4300 Balance 2955 / 2955 -445 / -445 Weight 156 lb 8 oz 156 lb 8 oz Microbiology Reports for the Last 24 Hours: Microbiology 03/11/19 14:45 Urine,Clean Catch Urine Culture - Preliminary Gram Negative Rods Gram Negative Rods#2 - Constitutional no acute distress, morbidly obese, obese - *Routine HEENT Exam Head: Present: normocephalic Eye: Present: PERRL ENT: Present: mucous membranes moist - *Routine Neck Exam Present: supple. Absent: lymphadenopathy - *Routine Respiratory Exam Present: decreased breath sounds, CTA bilaterally - *Routine Cardiovascular Exam Present: RRR - *Routine Abdominal Exam Present: soft, normoactive bowel sounds, wound, ostomy. Absent: tenderness - *Routine Extremities Exam Present: full ROM. Absent: cyanosis, clubbing, edema - *Routine Skin Exam Present: wounds Comments: under abd folds red with scattered open areas with redness two small open areas in groin - *Routine Neurological Exam Present: alert, oriented X3 - Routine Psychiatric Exam Present: normal affect Assessment and Plan (1) Severe sepsis with acute organ dysfunction Current visit: Yes Status: Acute Category: Medical Code(s): A41.9 - Sepsis, unspecified organism; R65.20 - Severe sepsis without septic shock (2) Septic shock Current visit: Yes Status: Acute Category: Medical Code(s): A41.9 - Sepsis, unspecified organism; R65.21 - Severe sepsis with septic shock bring treated with cefipime stop vanc- waitng cultures- gram neg sepsis (3) Presence of urostomy Current visit: No Status: Acute Category: Medical Code(s): Z93.6 - Other artificial openings of urinary tract status draining clear urine, remove ferreira bag and replace ostomy bag to pt own system (4) AICD (automatic cardioverter/defibrillator) present Current visit: No Status: Chronic Category: Surgical Code(s): Z95.810 - Presence of automatic (implantable) cardiac defibrillator (5) Bladder cancer Current visit: No Status: Acute Category: Medical Code(s): C67.9 - Malignant neoplasm of bladder, unspecified (6) Hypothyroidism (acquired) Current visit: No Status: Chronic Category: Medical Code(s): E03.9 - Hypothyroidism, unspecified (7) CAD (coronary artery disease) Current visit: No Status: Chronic Qualifiers: Coronary Disease-Associated Artery/Lesion type: [place] artery [place] vs. transplanted heart: [place] heart Associated angina: without angina Qualified Code(s): I25.10 - Atherosclerotic heart disease of [place] coronary artery without angina pectoris Category: Medical Code(s): I25.10 - Atherosclerotic heart disease of [place] coronary artery without angina pectoris (8) STACY (acute kidney injury) Current visit: Yes Status: Acute Category: Medical Code(s): N17.9 - Acute kidney failure, unspecified improved back to baseline cre/bun- decrease iv fluids po kcl (9) Complicated UTI (urinary tract infection) Current visit: Yes Status: Acute Category: Medical Code(s): N39.0 - Urinary tract infection, site not specified waiting for cultures- gram neg (10) Diabetes 1.5, managed as type 2 Current visit: Yes Status: Acute Category: Medical Code(s): E13.9 - Other specified diabetes mellitus without complications (11) Yeast infection of the skin Current visit: Yes Status: Acute Category: Medical Code(s): B37.2 - Candidiasis of skin and nail less redness today, open areas with less indurating, less moist, odor still present two small open red areas to groin (12) Yeast infection of the vagina Current visit: Yes Status: Acute Category: Medical Code(s): B37.3 - Candidiasis of vulva and vagina diflucan po daily - Assessment and plan all Dx Assessment and Plan for all problems:: pt/ot eval transfer from step down decrease iv fluids po kcl recheck bmp at [address] puente all orders per dr puente
[2019-03-13 14:14] LABS: Calcium 7.6 mg/dL (8.5-10.1)
--- NOTE | 2019-03-13 14:41 | Cardiology Report ---
APPROVED REPORT EXAM: Comprehensive 2D, Doppler, and color-flow Echocardiogram Uniform Attendant: Belen Art CRT Ht: 5 ft 1 in Wt: 156lbs BSA: 1.70 BP: 111/48 mmHg Indications: Prosthetic Valve, Murmur, Hyperlipidemia, Hypertension/HDD,CABG, MVR, CA, PRABHU, CHF, PACER, OLD SC 2D Dimensions LVOT 1.88 cm (M/F) 1.5-2.5 M-Mode Dimensions RVDd 2.82 cm (0.9-2.6)LVDd 5.32 cm (3.5-5.7) LVDs 4.10 cm (3.5-5.7)IVSd 1.14 cm (0.6-1.1) PWd 0.64 cm (0.6-1.1)EF (Teich) 45.60% FS 22.90% EDV (Teich) 136.50 mL ESV (Teich) 74.20 mL LV Diastology E/A Ratio 1.68 Mitral Valve MV A Velocity 85.00 (40-130 cm/s)MV Mean Gr. 4.90 (<2mmHg) MV PHT 103.00 ms Left Ventricle Left atrium is moderately enlarged, left ventricle is normal size, mild concentric left ventricular hypertrophy, visually estimated ejection fraction 55% with no regional wall motion abnormality. Right Ventricle Right atrium and right ventricle is normal size and contractility, there is a pacemaker lead seen in right atrium and right ventricle. Aortic Valve Aortic valve is minimally thickened and fibrosed, there is no aortic stenosis or aortic insufficiency. Mitral Valve Mitral inflow velocity is increased to 1.6 m/s, the mean gradient across valve is 4 mmHg, valve area is 2.4 cm, there is no mitral inflow obstruction or mitral regurgitation. Tricuspid Valve Tricuspid valve is grossly normal, there is mild tricuspid regurgitation. Pulmonic Valve Pulmonic valve is poorly visualized. Great Vessels Aortic root is normal size. Pericardium No significant pericardial effusion noted. Conclusion 1. Moderately enlarged left atrium, normal left ventricular size, visually estimated ejection fraction 55% with no regional wall motion abnormality, diastolic parameters are inconclusive. 2. Normal functioning bioprosthetic valve in the mitral position without mitral inflow obstruction or mitral regurgitation. 3. Mild tricuspid regurgitation. 4. No significant pericardial effusion noted. Electronically signed by : Nguyễn Knowles, 03/13/2019 14:41:18
[2019-03-14 06:31] LABS: Basophils % 0.3 % (0.1-2.0); Eosinophils # 0.3 K/mm3 (0.0-0.4); Eosinophils % 2.7 % (0.1-12.0); Hemoglobin 10.8 g/dL (12.2-16.2); Lymphocytes # 2.2 K/mm3 (0.7-4.5); Lymphocytes % 20.1 % (10-50); Mean Corpuscular HGB Conc 31.7 g/dL (31.8-35.4); Mean Corpuscular Volume 91.9 fl (81-99); Mean Platelet Volume 8.9 fl (7.4-10.4); Monocytes # 0.6 K/mm3 (0.1-1.0); Monocytes % 5.3 % (1.7-9.3); Neutrophils % 71.5 % (37.0-80.0); Platelet Count 259 K/mm3 (142-424); Red Cell Distribution Width 14.5 % (11.5-17.5); White Blood Count 11.1 K/mm3 (4.8-10.8)
[2019-03-14 06:47] LABS: Anion Gap 21.5 mEq/L (5-15); Calcium 7.6 mg/dL (8.5-10.1)
--- NOTE | 2019-03-14 09:21 | Progress Note ---
Internal Medicine - PN: Subj *Date: 03/15/19 *Time: 10:17 Interval history: doing better - has ksbl uti Exam Vital signs and Labs for Last 24 Hours: Temp Pulse Resp BP Pulse Ox 97.9 F 90 16 148/61 H 100 03/14/19 08:00 03/14/19 08:00 03/14/19 08:00 03/14/19 08:00 03/14/19 08:00 Laboratory Results - last 24 hr 03/13/19 11:30: POC Glucose 198 H 03/13/19 13:56: Sodium 141, Potassium 4.0 D, Chloride 116 H, Carbon Dioxide 9 L*, Anion Gap 20.0 H, BUN 48 H, Creatinine 1.68 H, Estimated Creat Clear 42, Estimated GFR 32 L, Est GFR ( Amer) 38 L D, Glucose 138 H D, Calcium 7.6 L 03/13/19 16:49: POC Glucose 129 H 03/13/19 21:40: POC Glucose 198 H 03/14/19 05:55: WBC 11.1 H, RBC 3.70 L, Hgb 10.8 L, Hct 34.0 L, MCV 91.9, MCH 29.2, MCHC 31.7 L, RDW 14.5, Plt Count 259, MPV 8.9, Neut % (Auto) 71.5, Lymph % (Auto) 20.1, [place] % (Auto) 5.3, Eos % (Auto) 2.7, Baso % (Auto) 0.3, Neut # (Auto) 8.0 H, Lymph # (Auto) 2.2, [place] # (Auto) 0.6, Eos # (Auto) 0.3, Baso # (Auto) 0.0 03/14/19 05:55: Sodium 142, Potassium 3.5, Chloride 114 H, Carbon Dioxide 10 L D , Anion Gap 21.5 H, BUN 31 H D, Creatinine 1.25 H D, Estimated Creat Clear 57, Estimated GFR 44 L, Est GFR ( Amer) 54 L D, Glucose 122 H, Calcium 7.6 L 03/14/19 05:58: POC Glucose 125 H I & O for Last 24 hours: Intake & Output 03/11/19 03/12/19 03/13/19 03/14/19 11:59 11:59 11:59 11:59 Intake Total 4680 / 4680 3975 / 3975 1967 / 1967 Output Total 1725 / 1725 4300 / 4300 2300 / 2300 Balance 2955 / 2955 -325 / -325 -332 / -332 Weight 156 lb 8 oz 156 lb 8 oz 157 lb 5 oz Microbiology Reports for the Last 24 Hours: Microbiology 03/11/19 14:45 Urine,Clean Catch Urine Culture - Final Klebsiella pneumoniae ozaenae Escherichia coli 03/11/19 17:02 Blood Blood Culture - Preliminary NO GROWTH AFTER 48 HOURS 03/11/19 13:50 Blood Blood Culture - Preliminary NO GROWTH AFTER 48 HOURS - Constitutional no acute distress - *Routine HEENT Exam Head: Present: normocephalic Eye: Present: EOMI, PERRL ENT: Present: mucous membranes dry - *Routine Neck Exam Present: supple - *Routine Respiratory Exam Present: CTA bilaterally - *Routine Cardiovascular Exam Present: RRR - *Routine Abdominal Exam Present: soft - *Routine Extremities Exam Absent: calf tenderness - *Routine Skin Exam Present: intact - *Routine Neurological Exam Present: alert, CN II-XII intact - Routine Psychiatric Exam Present: normal affect Assessment and Plan (1) Severe sepsis with acute organ dysfunction Current visit: Yes Status: Acute Category: Medical Code(s): A41.9 - Sepsis, unspecified organism; R65.20 - Severe sepsis without septic shock (2) Septic shock Current visit: Yes Status: Acute Category: Medical Code(s): A41.9 - Sepsis, unspecified organism; R65.21 - Severe sepsis with septic shock (3) Presence of urostomy Current visit: No Status: Acute Category: Medical Code(s): Z93.6 - Other artificial openings of urinary tract status (4) AICD (automatic cardioverter/defibrillator) present Current visit: No Status: Chronic Category: Surgical Code(s): Z95.810 - Presence of automatic (implantable) cardiac defibrillator (5) Bladder cancer Current visit: No Status: Acute Category: Medical Code(s): C67.9 - Malignant neoplasm of bladder, unspecified (6) Hypothyroidism (acquired) Current visit: No Status: Chronic Category: Medical Code(s): E03.9 - Hypothyroidism, unspecified (7) CAD (coronary artery disease) Current visit: No Status: Chronic Qualifiers: Coronary Disease-Associated Artery/Lesion type: [place] artery [place] vs. transplanted heart: [place] heart Associated angina: without angina Qualified Code(s): I25.10 - Atherosclerotic heart disease of [place] coronary artery without angina pectoris Category: Medical Code(s): I25.10 - Atherosclerotic heart disease of [place] coronary artery without angina pectoris (8) STACY (acute kidney injury) Current visit: Yes Status: Acute Category: Medical Code(s): N17.9 - Acute kidney failure, unspecified (9) Complicated UTI (urinary tract infection) Current visit: Yes Status: Acute Category: Medical Code(s): N39.0 - Urinary tract infection, site not specified (10) Diabetes 1.5, managed as type 2 Current visit: Yes Status: Acute Category: Medical Code(s): E13.9 - Other specified diabetes mellitus without complications (11) Yeast infection of the skin Current visit: Yes Status: Acute Category: Medical Code(s): B37.2 - Candidiasis of skin and nail (12) Yeast infection of the vagina Current visit: Yes Status: Acute Category: Medical Code(s): B37.3 - Candidiasis of vulva and vagina (13) Infection due to extended-spectrum [id number] Klebsiella pneumoniae Current visit: Yes Status: Acute Category: Medical Code(s): A49.8 - Other bacterial infections of unspecified site; Z16.12 - Extended spectrum beta lactamase (ESBL) resistance (14) E. coli UTI (urinary tract infection) Current visit: Yes Status: Acute Category: Medical Code(s): N39.0 - Urinary tract infection, site not specified; B96.20 - Unspecified Escherichia coli [E. coli] as the cause of diseases classified elsewhere
[2019-03-15 05:46] LABS: Basophils % 0.5 % (0.1-2.0); Eosinophils # 0.2 K/mm3 (0.0-0.4); Eosinophils % 2.4 % (0.1-12.0); Hemoglobin 11.7 g/dL (12.2-16.2); Lymphocytes # 1.8 K/mm3 (0.7-4.5); Lymphocytes % 20.3 % (10-50); Mean Corpuscular HGB Conc 31.5 g/dL (31.8-35.4); Mean Platelet Volume 9.6 fl (7.4-10.4); Monocytes # 0.4 K/mm3 (0.1-1.0); Monocytes % 4.8 % (1.7-9.3); Neutrophils # 6.4 K/mm3 (1.8-7.8); Platelet Count 291 K/mm3 (142-424); Red Blood Count 3.98 M/mm3 (4.20-5.40); Red Cell Distribution Width 14.8 % (11.5-17.5); White Blood Count 8.9 K/mm3 (4.8-10.8)
[2019-03-15 06:10] LABS: Anion Gap 23.6 mEq/L (5-15)
[2019-03-15 06:12] LABS: Calcium 8.6 mg/dL (8.5-10.1)
--- NOTE | 2019-03-15 10:25 | Progress Note ---
Internal Medicine - PN: Subj *Date: 03/16/19 *Time: 09:22 Interval history: looks ok but inc ag noted Exam Vital signs and Labs for Last 24 Hours: Temp Pulse Resp BP Pulse Ox 97.4 F L 105 H 18 141/61 H 100 03/15/19 08:00 03/15/19 08:00 03/15/19 08:00 03/15/19 08:00 03/15/19 08:00 Laboratory Results - last 24 hr 03/14/19 10:56: POC Glucose 175 H 03/14/19 16:29: POC Glucose 108 03/14/19 21:51: POC Glucose 114 H 03/15/19 05:40: WBC 8.9, RBC 3.98 L, Hgb 11.7 L, Hct 37.0, MCV 93.0, MCH 29.3, MCHC 31.5 L, RDW 14.8, Plt Count 291, MPV 9.6, Neut % (Auto) 72.0, Lymph % (Auto) 20.3, [place] % (Auto) 4.8, Eos % (Auto) 2.4, Baso % (Auto) 0.5, Neut # (Auto) 6.4, Lymph # (Auto) 1.8, [place] # (Auto) 0.4, Eos # (Auto) 0.2, Baso # (Auto) 0.0 03/15/19 05:40: Sodium 142, Potassium 3.6, Chloride 112 H, Carbon Dioxide 10 L, Anion Gap 23.6 H, BUN 24 H, Creatinine 1.25 H, Estimated Creat Clear 55, Estimated GFR 44 L, Est GFR ( Amer) 54 L, Glucose 136 H, Calcium 8.6 D 03/15/19 06:53: POC Glucose 137 H I & O for Last 24 hours: Intake & Output 03/12/19 03/13/19 03/14/19 03/15/19 11:59 11:59 11:59 11:59 Intake Total 4680 / 4680 3975 / 3975 1967 / 1967 1297 / 1297 Output Total 1725 / 1725 4300 / 4300 2300 / 2300 1950 / 1950 Balance 2955 / 2955 -325 / -325 -332 / -332 -653 / -653 Weight 156 lb 8 oz 156 lb 8 oz 157 lb 5 oz 151 lb 8 oz Microbiology Reports for the Last 24 Hours: Microbiology 03/11/19 14:45 Urine,Clean Catch Urine Culture - Final Klebsiella pneumoniae ozaenae Escherichia coli - Constitutional no acute distress - *Routine HEENT Exam Head: Present: normocephalic Eye: Present: EOMI, PERRL ENT: Present: mucous membranes dry - *Routine Neck Exam Present: supple - *Routine Respiratory Exam Present: decreased breath sounds - *Routine Cardiovascular Exam Present: RRR - *Routine Abdominal Exam Present: soft - *Routine Extremities Exam Present: full ROM - *Routine Skin Exam Present: intact - *Routine Neurological Exam Present: alert, CN II-XII intact - Routine Psychiatric Exam Present: normal affect Assessment and Plan (1) Severe sepsis with acute organ dysfunction Current visit: Yes Status: Acute Category: Medical Code(s): A41.9 - Sepsis, unspecified organism; R65.20 - Severe sepsis without septic shock (2) Septic shock Current visit: Yes Status: Acute Category: Medical Code(s): A41.9 - Sepsis, unspecified organism; R65.21 - Severe sepsis with septic shock (3) Presence of urostomy Current visit: No Status: Acute Category: Medical Code(s): Z93.6 - Other artificial openings of urinary tract status (4) AICD (automatic cardioverter/defibrillator) present Current visit: No Status: Chronic Category: Surgical Code(s): Z95.810 - Presence of automatic (implantable) cardiac defibrillator (5) Bladder cancer Current visit: No Status: Acute Category: Medical Code(s): C67.9 - Malignant neoplasm of bladder, unspecified (6) Hypothyroidism (acquired) Current visit: No Status: Chronic Category: Medical Code(s): E03.9 - Hypothyroidism, unspecified (7) CAD (coronary artery disease) Current visit: No Status: Chronic Qualifiers: Coronary Disease-Associated Artery/Lesion type: [place] artery [place] vs. transplanted heart: [place] heart Associated angina: without angina Qualified Code(s): I25.10 - Atherosclerotic heart disease of [place] coronary artery without angina pectoris Category: Medical Code(s): I25.10 - Atherosclerotic heart disease of [place] coronary artery without angina pectoris (8) STACY (acute kidney injury) Current visit: Yes Status: Acute Category: Medical Code(s): N17.9 - Acute kidney failure, unspecified (9) Complicated UTI (urinary tract infection) Current visit: Yes Status: Acute Category: Medical Code(s): N39.0 - Urinary tract infection, site not specified (10) Diabetes 1.5, managed as type 2 Current visit: Yes Status: Acute Category: Medical Code(s): E13.9 - Other specified diabetes mellitus without complications (11) Yeast infection of the skin Current visit: Yes Status: Acute Category: Medical Code(s): B37.2 - Candidiasis of skin and nail (12) Yeast infection of the vagina Current visit: Yes Status: Acute Category: Medical Code(s): B37.3 - Candidiasis of vulva and vagina (13) Infection due to extended-spectrum nyqz-grfdqbfic-qhbeebusy Klebsiella pneumoniae Current visit: Yes Status: Acute Category: Medical Code(s): A49.8 - Other bacterial infections of unspecified site; Z16.12 - Extended spectrum beta lactamase (ESBL) resistance (14) E. coli UTI (urinary tract infection) Current visit: Yes Status: Acute Category: Medical Code(s): N39.0 - Urinary tract infection, site not specified; B96.20 - Unspecified Escherichia coli [E. coli] as the cause of diseases classified elsewhere
[2019-03-16 05:57] LABS: Basophils # 0.1 K/mm3 (0-0.2); Basophils % 0.5 % (0.1-2.0); Eosinophils # 0.2 K/mm3 (0.0-0.4); Eosinophils % 1.9 % (0.1-12.0); Hematocrit 37.3 % (37.0-47.0); Hemoglobin 11.8 g/dL (12.2-16.2); Lymphocytes # 2.1 K/mm3 (0.7-4.5); Mean Corpuscular HGB Conc 31.7 g/dL (31.8-35.4); Mean Platelet Volume 8.7 fl (7.4-10.4); Monocytes # 0.5 K/mm3 (0.1-1.0); Monocytes % 4.6 % (1.7-9.3); Neutrophils # 8.8 K/mm3 (1.8-7.8); Platelet Count 289 K/mm3 (142-424); Red Blood Count 3.97 M/mm3 (4.20-5.40); Red Cell Distribution Width 14.8 % (11.5-17.5); White Blood Count 11.8 K/mm3 (4.8-10.8)
[2019-03-16 06:08] LABS: Anion Gap 22.5 mEq/L (5-15); Calcium 8.8 mg/dL (8.5-10.1)
--- NOTE | 2019-03-16 14:01 | Discharge Summary ---
General - General Admission date:: 03/11/19 Discharge date: 03/16/19 HPI HPI: this wf was seen in the pcp office - pt had been seen in [facility] and was on treatment for cellulitis but had continued to have sx and had dec po intake and progressive weakness - pt was sent for admit from office - Hospital Course Hospital Course: Laboratory Results - last 24 hr 03/15/19 16:51: POC Glucose 108 03/15/19 19:44: POC Glucose 120 H 03/16/19 05:20: POC Glucose 116 H 03/16/19 05:25: WBC 11.8 H D, RBC 3.97 L, Hgb 11.8 L, Hct 37.3, MCV 94.0, MCH 29.8, MCHC 31.7 L, RDW 14.8, Plt Count 289, MPV 8.7, Neut % (Auto) 75.0, Lymph % (Auto) 18.0, [place] % (Auto) 4.6, Eos % (Auto) 1.9, Baso % (Auto) 0.5, Neut # (Auto) 8.8 H, Lymph # (Auto) 2.1, [place] # (Auto) 0.5, Eos # (Auto) 0.2, Baso # (Auto) 0.1 03/16/19 05:25: Sodium 143, Potassium 3.5, Chloride 114 H, Carbon Dioxide 10 L, Anion Gap 22.5 H, BUN 19 H, Creatinine 1.11 H, Estimated Creat Clear 63, Estimated GFR 51 L, Est GFR ( Amer) 62, Glucose 125 H, Calcium 8.8 03/16/19 11:19: POC Glucose 130 H Microbiology 03/11/19 14:45 Urine Culture - Final Urine,Clean Catch Klebsiella pneumoniae ozaenae Escherichia coli 03/11/19 17:02 Blood Culture - Preliminary Blood NO GROWTH AFTER 48 HOURS 03/11/19 13:50 Blood Culture - Preliminary Blood NO GROWTH AFTER 48 HOURS echo:Conclusion 1. Moderately enlarged left atrium, normal left ventricular size, visually estimated ejection fraction 55% with no regional wall motion abnormality, diastolic parameters are inconclusive. 2. Normal functioning bioprosthetic valve in the mitral position without mitral inflow obstruction or mitral regurgitation. 3. Mild tricuspid regurgitation. 4. No significant pericardial effusion noted urology consult: see note uti:klebsiella pneumoniae/ e coli- [facility] as a outpt daily till saturday.will see pt on saturday after finished inv[facility] kidney insuff- returned to baseline repeat bmp on saturday Objective Vital signs: Temp Pulse Resp BP Pulse Ox 97.9 F 70 18 142/63 H 100 03/16/19 12:00 03/16/19 12:00 03/16/19 12:00 03/16/19 12:00 03/16/19 12:00 no acute distress - *Routine HEENT Exam Head: Present: normocephalic Eye: Present: PERRL ENT: Present: mucous membranes moist - *Routine Respiratory Exam Present: CTA bilaterally - *Routine Cardiovascular Exam Present: RRR - *Routine Abdominal Exam Present: soft, obese, ostomy Comments: ostomy draining clear urine - *Routine Extremities Exam Present: full ROM - *Routine Skin Exam Present: wounds Comments: redness under skin folds with small open areas - *Routine Neurological Exam Present: alert, oriented X3 - Routine Psychiatric Exam Present: normal affect Results Labs on day of discharge: Labs from last 24 hours 03/16/19 03/16/19 03/16/19 11:19 05:25 05:25 WBC 11.8 H D RBC 3.97 L Hgb 11.8 L Hct 37.3 MCV 94.0 MCH 29.8 MCHC 31.7 L RDW 14.8 Plt Count 289 MPV 8.7 Neut % (Auto) 75.0 Lymph % (Auto) 18.0 [place] % (Auto) 4.6 Eos % (Auto) 1.9 Baso % (Auto) 0.5 Neut # (Auto) 8.8 H Lymph # (Auto) 2.1 [place] # (Auto) 0.5 Eos # (Auto) 0.2 Baso # (Auto) 0.1 Sodium 143 Potassium 3.5 Chloride 114 H Carbon Dioxide 10 L Anion Gap 22.5 H BUN 19 H Creatinine 1.11 H Estimated Creat Clear 63 Estimated GFR 51 L Est GFR ( Amer) 62 Glucose 125 H POC Glucose 130 H Calcium 8.8 03/16/19 03/15/19 03/15/19 05:20 19:44 16:51 WBC RBC Hgb Hct MCV MCH MCHC RDW Plt Count MPV Neut % (Auto) Lymph % (Auto) [place] % (Auto) Eos % (Auto) Baso % (Auto) Neut # (Auto) Lymph # (Auto) [place] # (Auto) Eos # (Auto) Baso # (Auto) Sodium Potassium Chloride Carbon Dioxide Anion Gap BUN Creatinine Estimated Creat Clear Estimated GFR Est GFR ( Amer) Glucose POC Glucose 116 H 120 H 108 Calcium Preliminary micro results at discharge 03/11/19 17:02 Blood Culture - Preliminary Blood NO GROWTH AFTER 48 HOURS 03/11/19 13:50 Blood Culture - Preliminary Blood NO GROWTH AFTER 48 HOURS - Additional Comments rounded with kwame all orders per kwame DS: Diagnosis - Discharge Diagnosis (1) Severe sepsis with acute organ dysfunction Status: Acute Problem details: v/s and labs wnl (2) Septic shock Status: Acute (3) Presence of urostomy Status: Acute Problem details: draining clear urine (4) AICD (automatic cardioverter/defibrillator) present Status: Chronic (5) Bladder cancer Status: Acute (6) Hypothyroidism (acquired) Status: Chronic (7) CAD (coronary artery disease) Status: Chronic (8) STACY (acute kidney injury) Status: Acute Problem details: labs at baseline (9) Complicated UTI (urinary tract infection) Status: Acute Problem details: ecoli and kleb pneumonia (10) Diabetes 1.5, managed as type 2 Status: Acute (11) Yeast infection of the skin Status: Acute Problem details: continue nystain power (12) Yeast infection of the vagina Status: Acute (13) Infection due to extended-spectrum [id number] Klebsiella pneumoniae Status: Acute (14) E. coli UTI (urinary tract infection) Status: Acute Discharge Plan - Patient Discharge Instructions ACTIVITY: Continue current activity DIET: continue same diet Patient Instructions: DI for Cellulitis -- Adult, Septic Shock, DI for Urinary Tract Infection (UTI), DI for Acute Kidney Injury - Follow up Plan Follow up with: Ninoska Bautista APRN [Nurse Practitioner] - 04/02/19 1:15 pm Cosme Davis MD [Primary Care Provider] - 03/23/19 1:00 pm Disposition: Home Health Service Home Medications: Home Medications Medication Instructions Recorded Confirmed Type aspirin 81 mg tablet,delayed 81 mg PO DAILY #90 tab 01/21/19 03/11/19 Rx release cholecalciferol (vitamin D3) 25 1,000 unit PO DAILY #30 tab 02/13/19 03/11/19 Rx mcg (1,000 unit) tablet zolpidem 5 mg tablet 5 mg PO HSP PRN #30 tab 02/13/19 03/11/19 Rx Ondansetron [Zofran 4mg ODT] 4 mg PO Q4HP PRN 10 Days #30 03/06/19 03/11/19 Rx tab.rapdis Atorvastatin Calcium [Atorvastatin 40 mg PO DAILY 03/11/19 03/11/19 History 40mg Tab] Escitalopram Oxalate [Lexapro] 20 mg PO DAILY 03/11/19 03/11/19 History Fluconazole [Diflucan 200mg tablet] 200 mg PO DAILY 03/11/19 03/11/19 History Furosemide [Furosemide 20mg Tab] 20 mg PO DAILY 03/11/19 03/11/19 History Insulin NPH Hum/Reg Insulin Hm 30 unit SQ BID 03/11/19 03/11/19 History [Relion Novolin 70-30 Vial] Levothyroxine Sodium [Synthroid 25 mcg PO DAILY 03/11/19 03/11/19 History 25mcg (0.025mg) tablet] Nystatin [Nystatin Topical Powder 1 applicatio TP QID 03/11/19 03/11/19 History 30GM*] Sulfamethoxazole/Trimethoprim 1 each PO BID 03/11/19 03/11/19 History [Bactrim DS tablet] ALPRAZolam [Xanax 0.5mg tab] 0.5 mg PO TIDP PRN 03/12/19 03/12/19 History Clopidogrel Bisulfate [Plavix 75mg 75 mg PO DAILY 03/12/19 03/11/19 History Tab] Ergocalciferol (Vitamin D2) 50,000 unit PO WEEKLY 03/12/19 03/12/19 History [Drisdol] Gabapentin [Gabapentin 300mg Cap] 300 mg PO HS 03/12/19 03/11/19 History carvediloL [Carvedilol 6.25mg Tab] 6.25 mg PO BID 03/12/19 03/11/19 History dilTIAZem HCL [Cardizem CD 120mg 120 mg PO DAILY 03/12/19 03/11/19 History Cap] lisinopriL [Lisinopril 2.5mg Tab] 2.5 mg PO DAILY 03/12/19 03/11/19 History Ertapenem Sodium [Invanz 1gm Vial] 1 gm IV Q24H 7 Days #7 vial 03/16/19 Rx Nystatin [Nystatin Topical Powder 1 gm TP QID 14 Days #1 bottle 03/16/19 Rx 30GM*] Prescriptions/Medication Reconciliation: New Nystatin [Nystatin Topical Powder 30GM*] 1 gm TP QID 14 Days #1 bottle Ertapenem Sodium [Invanz 1gm Vial] 1 gm IV Q24H 7 Days #7 vial Continued aspirin 81 mg tablet,delayed release 81 mg PO DAILY #90 tab zolpidem 5 mg tablet 5 mg PO HSP PRN #30 tab PRN Reason: Insomnia cholecalciferol (vitamin D3) 25 mcg (1,000 unit) tablet 1,000 unit PO DAILY #30 tab Ondansetron [Zofran 4mg ODT] 4 mg PO Q4HP PRN 10 Days #30 tab.rapdis PRN Reason: Nausea Levothyroxine Sodium [Synthroid 25mcg (0.025mg) tablet] 25 mcg PO DAILY Escitalopram Oxalate [Lexapro] 20 mg PO DAILY carvediloL [Carvedilol 6.25mg Tab] 6.25 mg PO BID Clopidogrel Bisulfate [Plavix 75mg Tab] 75 mg PO DAILY dilTIAZem HCL [Cardizem CD 120mg Cap] 120 mg PO DAILY Gabapentin [Gabapentin 300mg Cap] 300 mg PO HS lisinopriL [Lisinopril 2.5mg Tab] 2.5 mg PO DAILY Insulin NPH Hum/Reg Insulin Hm [Relion Novolin 70-30 Vial] 30 unit SQ BID Furosemide [Furosemide 20mg Tab] 20 mg PO DAILY Atorvastatin Calcium [Atorvastatin 40mg Tab] 40 mg PO DAILY Sulfamethoxazole/Trimethoprim [Bactrim DS tablet] 1 each PO BID Fluconazole [Diflucan 200mg tablet] 200 mg PO DAILY Nystatin [Nystatin Topical Powder 30GM*] 1 applicatio TP QID ALPRAZolam [Xanax 0.5mg tab] 0.5 mg PO TIDP PRN PRN Reason: Anxiety Ergocalciferol (Vitamin D2) [Drisdol] 50,000 unit PO WEEKLY - Problem Reconciliation Problems Reviewed?: Yes
== END 2019-03-16 15:21 | disposition home health service (06) | DRG 871 ==
LOC: 2ND → OBSVTOIN 12:16 → 2ND 20:55
PROVIDERS: ADMIT Emergency Medicine; ATTEND Emergency Medicine
CPT/HCPCS: 36415; 80048; 80053; 81001; 82009; 82962; 83605; 83735; 84484; 85007; 85025; 87040; 87086; 87088; 87186; 93306; 97162; 97165; J1335; J2543; J3370

== ENCOUNTER → 2019-03-17 08:42 | Outpatient (CLI) | payer MEDICARE, MEDICAID, SELFPAY ==
[2019-03-17 09:10] VITALS: BP 121/65; PULSE 67; RESP 18; TEMP 36.2; O2SAT 98
== END ==
PROVIDERS: Visit Provider Emergency Medicine
DX: N39.0 Urinary tract infection, site not specified (principal)
CPT/HCPCS: 96372; J1335

== ENCOUNTER 2019-03-18 11:21 | Outpatient (CLI) | payer MEDICARE, MEDICAID, SELFPAY ==
[2019-03-18 11:38] VITALS: BP 92/51; PULSE 69; RESP 18; TEMP 35.9
== END 2019-03-18 11:41 | disposition home or self-care (01) ==
LOC: INF 11:21
PROVIDERS: Visit Provider Emergency Medicine
DX: N39.0 Urinary tract infection, site not specified (principal)
CPT/HCPCS: 96372; J1335

== ENCOUNTER → 2019-03-18 11:59 | Outpatient (CLI) | payer MEDICARE, MEDICAID, SELFPAY ==
[2019-03-18 12:07] LABS: Microscopic, Urine URINE MICROSCOPIC (MICROSCOPIC)
[2019-03-18 12:32] LABS: Appearance,Urine CLEAR (Clear); Blood, Urine 1+ (Negative); Color,Urine YELLOW (Yellow); Glucose,Urine (UA) Negative (Negative); Ketones,Urine Negative (Negative); Leukocyte Esterase,Urine Negative (Negative); Nitrate,Urine Negative (Negative); Protein,Urine TRACE (Negative); Urobilinogen,Urine 0.2 EU/dl (0.2)
[2019-03-18 12:35] LABS: Bilirubin,Urine Negative (Negative)
[2019-03-18 12:36] LABS: Creatinine,Urine Random 32 mg/dL (20-320); Total Protein,Urine Random 55.1 mg/dL (0.0-11.9)
[2019-03-18 13:00] LABS: Basophils # 0.1 K/mm3 (0-0.2); Basophils % 0.5 % (0.1-2.0); Eosinophils # 0.4 K/mm3 (0.0-0.4); Eosinophils % 2.7 % (0.1-12.0); Hematocrit 38.2 % (37.0-47.0); Hemoglobin 12.4 g/dL (12.2-16.2); Lymphocytes # 2.2 K/mm3 (0.7-4.5); Mean Corpuscular HGB Conc 32.5 g/dL (31.8-35.4); Mean Corpuscular Hemoglobin 29.5 pg (27.0-31.2); Mean Corpuscular Volume 90.9 fl (81-99); Mean Platelet Volume 8.2 fl (7.4-10.4); Monocytes # 0.4 K/mm3 (0.1-1.0); Monocytes % 2.6 % (1.7-9.3); Neutrophils # 12.3 K/mm3 (1.8-7.8); Neutrophils % 80.3 % (37.0-80.0); Platelet Count 361 K/mm3 (142-424); Red Cell Distribution Width 14.9 % (11.5-17.5); White Blood Count 15.4 K/mm3 (4.8-10.8)
[2019-03-18 13:03] LABS: MANUAL DIFFERENTIAL MANUAL DIFFERENTIAL (MANUAL DIFF)
[2019-03-18 13:30] LABS: Bacteria,Urine 1+ /lpf; Squamous Epithelial Cell,Urine Occasional #/hpf (0-5); Trichomonas,Urine Occasional /lpf
[2019-03-18 14:09] LABS: Albumin Level 3.5 gm/dL (3.4-5.0); Anion Gap 18.9 mEq/L (5-15); Blood Urea Nitrogen 18 mg/dL (7-18); Calcium 9.6 mg/dL (8.5-10.1); Carbon Dioxide 19 mmol/L (21.0-32.0); Chloride 108 mmol/L (98-107); Creatinine,Serum 1.38 mg/dL (0.55-1.02); Estimated Glomerular Filt Rate 40 ml/min (>60); GFR (African American) 48 ML/MIN (>60); Glucose 137 mg/dL (74-106); Phosphorous 3.5 mg/dL (2.4-4.9); Potassium 3.9 mmoL/L (3.5-5.1); Sodium 142 mmol/L (136-145)
[2019-03-18 22:59] LABS: Eosinophils % 5 % (0-3); Lymphocytes % 20 % (10-50); Monocytes % 5 % (2-9); Neutrophils % 70 % (42-76); Total Cells Counted 100
[2019-03-18 23:00] LABS: Acanthocytes 1+; Platelet Estimate Normal
[2019-03-19 15:53] LABS: Parathyroid Hormone Intact 7 pg/mL (15-65); Vitamin D 25 Hydroxy 35.4 ng/mL (30.0-100.0)
[2019-03-20 16:56] LABS: Calcium, Ionized 5.6 mg/dL (4.5-5.6)
== END ==
PROVIDERS: Visit Provider Internal Medicine Nephrology
DX: N18.3 Chronic kidney disease, stage 3 (moderate) (principal)
CPT/HCPCS: 36415; 80069; 81001; 82330; 82570; 82652; 83970; 84155; 85007; 85025; 96372; J1335

== ENCOUNTER 2019-03-19 13:42 | Outpatient (CLI) | payer MEDICARE, MEDICAID, SELFPAY ==
[2019-03-19 14:04] VITALS: BP 104/50; PULSE 69; RESP 18; TEMP 36.6; O2SAT 95
--- NOTE | 2019-03-19 14:11 | PC.NURSE ---
1404 Invanz 1 gram IM given at this time, 500mg IM L gluteus renee, 500mg IM R gluteus renee. Pt rayna well with no problems noted.
== END 2019-03-19 14:30 | disposition home or self-care (01) ==
LOC: INF 13:42
PROVIDERS: Visit Provider Emergency Medicine
DX: N39.0 Urinary tract infection, site not specified (principal)
CPT/HCPCS: 96372; J1335

== ENCOUNTER → 2019-03-19 16:45 | Outpatient (POV) | payer MEDICARE, MEDICAID, SELFPAY | PROVIDERS: Visit Provider Internal Medicine Nephrology | DX: Z00.00 Encounter for general adult medical examination without abnormal findings (principal) ==

== ENCOUNTER 2019-03-20 11:20 | Outpatient (CLI) | payer MEDICARE, MEDICAID, SELFPAY ==
[2019-03-20 11:30] VITALS: BP 84/48; PULSE 68; RESP 20; TEMP 36.9; O2SAT 95
[2019-03-20 11:50] VITALS: BP 72/46; PULSE 68; RESP 20; TEMP 36.9; O2SAT 95
--- NOTE | 2019-03-20 12:00 | PC.NURSE ---
invanz given in both hips
== END 2019-03-20 11:55 | disposition home or self-care (01) ==
LOC: INF 11:28
PROVIDERS: Visit Provider Emergency Medicine
DX: N39.0 Urinary tract infection, site not specified (principal)
CPT/HCPCS: 96372; 96401; J1335

== ENCOUNTER 2019-03-20 12:06 | Observation (INO) ==
--- NOTE | 2019-03-20 12:49 | Emergency Department Note ---
ED Disposition Clinical Impression: STACY (acute kidney injury), Hypovolemia, Dehydration, Generalized weakness Hypotension Qualifiers: Hypotension type: unspecified hypotension type Qualified Code(s): I95.9 - Hypotension, unspecified Disposition: Admitted as Observation Condition on Discharge: Fair Time of Disposition: 17:23 - Critical Care Critical Care Time: No Attestation: On , the high probability of a clinically significant, sudden or life threatening deterioration of the following system(s) required my full and direct attention, intervention and personal management. The time I documented below is in addition to time spent performing reported procedures but includes the following listed in this critical care notation. Medical Decision Making - [place] Inquiry Pt receiving controlled substance: No Vital Signs: 03/20/19 12:07 03/20/19 13:37 03/20/19 15:00 Pulse Rate [Radial] 69 69 70 Respiratory Rate 18 19 16 Blood Pressure [Right Arm] 97/48 L 99/56 L 104/58 L Blood Pressure Mean [Right Arm] 64 70 73 Blood Pressure Source [Right Arm] Automatic Cuff Automatic Cuff Automatic Cuff Blood Pressure Position [Right Arm] Sitting Sitting Sitting 02 Sat by Pulse Oximetry 99 99 100 Oxygen Delivery Method Room Air Room Air Room Air - Lab Data Lab Results 03/20/19 12:45: WBC 11.5 H D, RBC 4.71, Hgb 13.5, Hct 43.6, MCV 92.6, MCH 28.7, MCHC 31.0 L, RDW 15.8, Plt Count 384, MPV 8.6, Neut % (Auto) 73.7, Lymph % (Auto) 19.2, [place] % (Auto) 3.8, Eos % (Auto) 2.7, Baso % (Auto) 0.6, Neut # (Auto) 8.5 H, Lymph # (Auto) 2.2, [place] # (Auto) 0.4, Eos # (Auto) 0.3, Baso # (Auto) 0.1 03/20/19 12:45: Sodium 139, Potassium 3.1 L D, Chloride 105, Carbon Dioxide 17 L , Anion Gap 20.1 H, BUN 32 H D, Creatinine 2.14 H D, Estimated Creat Clear 32, Estimated GFR 24 L, Est GFR ( Amer) 29 L D, Glucose 169 H, Calcium 10.0, Total Bilirubin 0.2, AST 21, ALT 15, Alkaline Phosphatase 174 H, Troponin I < 0.02, C-Reactive Protein 1.2 H, Total Protein 8.1, Albumin 3.6, Globulin 4.5 H, Albumin/Globulin Ratio 0.8 L 03/20/19 12:45: ESR 96 H 03/20/19 14:11: Lactate 0.9 03/20/19 16:17: Troponin I < 0.02 Result diagrams: 03/20/19 12:45 03/20/19 12:45 Orders (Tests/Meds): ED MEDICATIONS Generic Name Dose Route Start Last Admin Trade Name Freq PRN Reason Stop Dose Admin Sodium Chloride 10 ml 03/20/19 16:00 Saline Flush 10ml Syringe IV 03/21/19 04:00 NEEDED PRN Maintain IV Site Discontinued Medications Generic Name Dose Route Start Last Admin Trade Name Freq PRN Reason Stop Dose Admin Sodium Chloride 1,000 mls @ 999 mls/hr 03/20/19 16:00 03/20/19 16:04 Sod Chlor 0.9% 1000ml Bag IV 03/20/19 17:00 999 mls/hr .Q1H1M BIJAN Administration ORDERS Category Date Time Status Troponin I Q3H Lab 03/20/19 19:00 Ordered Blood Culture Stat Micro 03/20/19 14:11 Received EKG Request [ECG Request by /Judson] Stat Y 03/20/19 12:53 Ordered - Physician Consults Physician Consulted: Dr. Powell Time: 17:00 Reason -: Admission Comment/Response: Discussed with Dr. Powell, regarding the patient and plan to get the patient admitted to the floor. - Reevaluation(s) Time: 16:00 Reevaluation #1: Patient has been stable while in the emergency department. Plan to give the patient IV fluids and discussed the case with the primary care provider regarding further management plan. Time: 17:20 Reevaluation #2: Discussed with Dr. Powell, the primary care provider regarding the patient and plan to get the patient admitted for hydration and further management. The patient is comfortable and stable and I discussed with her about the management plan and she is agreeable to get admitted for observation. General Adult HPI - General Chief complaint: Weakness Stated complaint: low bp Time Seen by Provider: 03/20/19 12:10 Mode of Arrival: Wheelchair Limitations: No Limitations Description of Symptoms (Recalled from ER Triage Doc. by RN): Being seen in infusion for outpatient antibiotics. BP was low and was told to bring her to the ED. Family states that she has been a little unstable and that she took two of her bp meds this morning. - History of Present Illness HPI narrative: 58-year-old female Gurinder to the emergency department being referred from the infusion clinic having low blood pressure. Patient states she was feeling. While coming to the hospital she also felt some numbness on the right arm. Has history of high blood pressure and takes medications for the same. She does not check her blood pressure at home. Took her blood pressure medication this morning. Patient comes to the infusion clinic for IV antibiotics. She was getting the antibiotics for her recent history of sepsis for which she was admitted to the hospital. No history of fever or chills. No history of nausea or vomiting. No history of dysuria or hematuria. Patient blood pressure in the emergency department was 96/50. - Related Data Home Medications Medication Instructions Recorded Confirmed Atorvastatin Calcium [Atorvastatin 40 mg PO DAILY 03/11/19 03/19/19 40mg Tab] Escitalopram Oxalate [Lexapro] 20 mg PO DAILY 03/11/19 03/19/19 Fluconazole [Diflucan 200mg tablet] 200 mg PO DAILY 03/11/19 03/19/19 Furosemide [Furosemide 20mg Tab] 20 mg PO DAILY 03/11/19 03/19/19 Insulin NPH Hum/Reg Insulin Hm 30 unit SQ BID 03/11/19 03/19/19 [Relion Novolin 70-30 Vial] Levothyroxine Sodium [Synthroid 25 mcg PO DAILY 03/11/19 03/19/19 25mcg (0.025mg) tablet] Nystatin [Nystatin Topical Powder 1 applicatio TP QID 03/11/19 03/19/19 30GM*] Sulfamethoxazole/Trimethoprim 1 each PO BID 03/11/19 03/19/19 [Bactrim DS tablet] Clopidogrel Bisulfate [Plavix 75mg 75 mg PO DAILY 03/12/19 03/19/19 Tab] Ergocalciferol (Vitamin D2) 50,000 unit PO WEEKLY 03/12/19 03/19/19 [Drisdol] Gabapentin [Gabapentin 300mg Cap] 300 mg PO HS 03/12/19 03/19/19 carvediloL [Carvedilol 6.25mg Tab] 6.25 mg PO BID 03/12/19 03/19/19 dilTIAZem HCL [Cardizem CD 120mg 120 mg PO DAILY 03/12/19 03/19/19 Cap] lisinopriL [Lisinopril 2.5mg Tab] 2.5 mg PO DAILY 03/12/19 03/19/19 Ertapenem Sodium [Invanz 1gm Vial] 1 gm IV Q24H 03/19/19 03/19/19 Nystatin [Nystatin Topical Powder 1 gm TP QID 03/19/19 03/19/19 30GM*] Previous Rx's Medication Instructions Recorded aspirin 81 mg tablet,delayed 81 mg PO DAILY #90 tab 01/21/19 release cholecalciferol (vitamin D3) 25 1,000 unit PO DAILY #30 tab 02/13/19 mcg (1,000 unit) tablet Ondansetron [Zofran 4mg ODT] 4 mg PO Q4HP PRN 10 Days #30 03/06/19 tab.rapdis alprazolam 0.5 mg tablet 0.5 mg PO TID 5 Days #15 tab 03/18/19 zolpidem 5 mg tablet 5 mg PO QHS 5 Days #5 tab 03/18/19 Allergies Allergy/AdvReac Type Severity Reaction Status Date / Time No Known Allergies Allergy Verified 03/11/19 11:13 [facility] History - Hepatitis A Screen Drug use history?: No High risk sexual behaviors?: No History of sexually transmitted infection?: No Currently employed?: No Childcare worker?: No Do you have indoor plumbing?: Yes Do you have electricity?: Yes Attestation statement:: This patient has been screened for Hepatitis A risk factors. I have reviewed the patient's past medical history: Yes Medical History: Reports:: Arrhythmia, Cancer, Carotid Stenosis, Congestive Heart Failure, Coronary Artery Disease, Diabetes Mellitus Type 2, Hyperlipidemia, Hypertension, Internal Pacemaker, Myocardial Infarction, Palpitations, Peripheral Artery Disease, Peripheral Vascular Disease, Valvular Heart Disease Denies:: Diabetes Mellitus Type 1, MRSA Other Medical History: Reports: Anemia, Chemotherapy, Hypothyroidism, Thyroid Disease Comment: Bladder cancer Other Surgeries: Yes: No Previous Surgery, CABG, Cancer Surgery, Cardiac Catheterization, Cardiac Surgery, Cholecystectomy, , Hysterectomy- Total, Mitral Valve Replacement, Open Heart Surgery, Pacemaker, Other Valve Replacement (tricuspid), Other (ileostomy) Amputation: No Fractures: No Comment: Triple bypass - Social History Educational Level: Completed High School Smoking Status: Current every day smoker Tobacco Type: cigarettes # Packs/Day (cigarettes): 1 Alcohol Intake: never Substance Use Type: denies use, crack/cocaine, hallucinogens, inhalants Occupational Status: disabled Housing: house Household Members: family, children Comment: she states that back in the day she dabbled in things. She does currently smoke cannabis; if she gets the chance; last time was last week. -she states that she will do anything to help her nerves. -she states that it just helps her relax. -she states that she is picky about the pot she smokes Family Hx:: Cancer, Coronary Artery Disease, Diabetes, Hyperlipidemia, Hypertension, Stroke ROS Obtained: Yes All systems reviewed & no additional complaints Physical Exam - General General appearance: alert, in no apparent distress, other (pt is weak and looks pale.) - Head Head exam: atraumatic, normocephalic, normal inspection - Eye Eye exam: Present: normal appearance, PERRL, EOMI - ENT ENT exam: Present: normal exam, normal oropharynx, mucous membranes moist, TM's normal bilaterally, normal external ear exam - Neck Neck exam: Present: normal inspection, full ROM, trachea midline - Chest Chest inspection: Present: normal inspection, symmetric chest wall rise. Absent: tenderness - Respiratory Respiratory exam: Present: normal lung sounds bilaterally. Absent: respiratory distress - Cardiovascular Cardiovascular exam: Present: regular rate, normal rhythm. Absent: JVD - Abdominal Exam Abdominal exam: Present: soft, normal bowel sounds, other (urostomy bag in the right lower quad.). Absent: distention, tenderness, guarding - Extremities Exam Extremities exam: Present: normal inspection, full ROM, normal capillary refill. Absent: calf tenderness - Back Exam Back exam: Present: normal inspection. Absent: full ROM, tenderness - Neurological Exam Neurological exam: Present: alert, oriented X3, CN II-XII intact - Psychiatric Psychiatric exam: Present: normal affect, normal mood - Skin Skin exam: Present: warm, dry, intact, normal color
[2019-03-20 13:03] LABS: Basophils # 0.1 K/mm3 (0-0.2); Basophils % 0.6 % (0.1-2.0); Eosinophils # 0.3 K/mm3 (0.0-0.4); Eosinophils % 2.7 % (0.1-12.0); Hematocrit 43.6 % (37.0-47.0); Hemoglobin 13.5 g/dL (12.2-16.2); Lymphocytes # 2.2 K/mm3 (0.7-4.5); Lymphocytes % 19.2 % (10-50); Mean Corpuscular Volume 92.6 fl (81-99); Mean Platelet Volume 8.6 fl (7.4-10.4); Monocytes # 0.4 K/mm3 (0.1-1.0); Monocytes % 3.8 % (1.7-9.3); Neutrophils # 8.5 K/mm3 (1.8-7.8); Neutrophils % 73.7 % (37.0-80.0); Platelet Count 384 K/mm3 (142-424); Red Blood Count 4.71 M/mm3 (4.20-5.40); Red Cell Distribution Width 15.8 % (11.5-17.5); White Blood Count 11.5 K/mm3 (4.8-10.8)
[2019-03-20 13:44] LABS: Alanine Aminotransferase 15 U/L (12-78); Albumin Level 3.6 gm/dL (3.4-5.0); Albumin/Globulin Ratio 0.8 (1.1-1.8); Alkaline Phosphatase 174 U/L (46-116); Anion Gap 20.1 mEq/L (5-15); Aspartate Amino Transferase 21 U/L (15-37); Bilirubin,Total 0.2 mg/dL (0.2-1.0); Blood Urea Nitrogen 32 mg/dL (7-18); C-Reactive Protein 1.2 mg/dL (0.0-0.9); Carbon Dioxide 17 mmol/L (21.0-32.0); Chloride 105 mmol/L (98-107); Globulin 4.5 gm/dl (1.3-3.2); Glucose 169 mg/dL (74-106); Sodium 139 mmol/L (136-145); Total Protein,Serum 8.1 gm/dL (6.4-8.2)
--- NOTE | 2019-03-20 19:22 | History & Physical Report ---
*Admission Date: 03/20/19 *Chief complaint: Weakness/dehydration/acute kidney injury *History of present illness: 58-year-old white female who suffers from multiple medical problems including chronic kidney disease, chronic CHF and has recently been diagnosed with a significant urinary tract infection and was discharged from the hospital with intravenous Invanz 1 g daily for 7 days on March 16. She has been getting treatments as scheduled, but today in the infusion department complained of weakness and dizziness, blood pressure was very low and she was transferred to the ER for further evaluation where she was noted to be relatively hypotensive, and have acute kidney injury superimposed on chronic kidney disease with creatinine above 2. Admitted to hospital for IV fluids and readjustment of medications. Of note she denies fevers, reports some vomiting, she is a very poor historian and is really unable to give me more details of her symptoms. [facility] History I have reviewed the patient's past medical history: Yes Medical History: Reports:: Arrhythmia, Cancer, Carotid Stenosis, Congestive Heart Failure, Coronary Artery Disease, Diabetes Mellitus Type 2, Hyperlipidemia, Hypertension, Internal Pacemaker, Myocardial Infarction, P alpitations, Peripheral Artery Disease, Peripheral Vascular Disease, Valvular Heart Disease Denies:: Diabetes Mellitus Type 1, MRSA *Have you ever received a pneumonia vaccine?: No *Have you received a flu vaccine this season?: Yes Other Medical History: Reports: Anemia, Chemotherapy, Hypothyroidism, Thyroid Disease Other Surgeries: Yes: No Previous Surgery, CABG, Cancer Surgery, Cardiac Catheterization, Cardiac Surgery, Cholecystectomy, , Hysterectomy- Total, Mitral Valve Replacement, Open Heart Surgery, Pacemaker, Other Valve Replacement (tricuspid), Other (ileostomy) Amputation: No Fractures: No - *Social History Educational Level: Completed High School Smoking Status: Current some day smoker Tobacco Type: cigarettes # Packs/Day (cigarettes): 1 Alcohol Intake: never Substance Use Type: denies use, crack/cocaine, hallucinogens, inhalants *Occupational Status:: retired Housing: house Household Members: family *Travel in the last 8 weeks: None Family Hx:: Coronary Artery Disease, Heart Attack, Hyperlipidemia, Hypertension Review of Systems - Review of Systems Review of systems:: pertinent systems reviewed and negative unless documented below Patient reports GI symptoms of nausea, without vomiting. Is unsteady, denies chest pain, denies swelling. Reports that her teeth hurt so that she cannot eat well. [facility] Home Medications Medication Instructions Recorded Confirmed Type aspirin 81 mg tablet,delayed 81 mg PO DAILY #90 tab 01/21/19 03/20/19 Rx release cholecalciferol (vitamin D3) 25 1,000 unit PO DAILY #30 tab 02/13/19 03/20/19 Rx mcg (1,000 unit) tablet Ondansetron [Zofran 4mg ODT] 4 mg PO Q4HP PRN 10 Days #30 03/06/19 03/20/19 Rx tab.rapdis Atorvastatin Calcium [Atorvastatin 40 mg PO DAILY 03/11/19 03/20/19 History 40mg Tab] Escitalopram Oxalate [Lexapro] 20 mg PO DAILY 03/11/19 03/20/19 History Fluconazole [Diflucan 200mg tablet] 200 mg PO DAILY 03/11/19 03/20/19 History Furosemide [Furosemide 20mg Tab] 20 mg PO DAILY 03/11/19 03/20/19 History Insulin NPH Hum/Reg Insulin Hm 30 unit SQ BID 03/11/19 03/20/19 History [Relion Novolin 70-30 Vial] Levothyroxine Sodium [Synthroid 25 mcg PO DAILY 03/11/19 03/20/19 History 25mcg (0.025mg) tablet] Nystatin [Nystatin Topical Powder 1 applicatio TP QID 03/11/19 03/20/19 History 30GM*] Sulfamethoxazole/Trimethoprim 1 each PO BID 03/11/19 03/20/19 History [Bactrim DS tablet] Clopidogrel Bisulfate [Plavix 75mg 75 mg PO DAILY 03/12/19 03/20/19 History Tab] Ergocalciferol (Vitamin D2) 50,000 unit PO WEEKLY 03/12/19 03/20/19 History [Drisdol] Gabapentin [Gabapentin 300mg Cap] 300 mg PO HS 03/12/19 03/20/19 History carvediloL [Carvedilol 6.25mg Tab] 6.25 mg PO BID 03/12/19 03/20/19 History dilTIAZem HCL [Cardizem CD 120mg 120 mg PO DAILY 03/12/19 03/20/19 History Cap] lisinopriL [Lisinopril 2.5mg Tab] 2.5 mg PO DAILY 03/12/19 03/20/19 History alprazolam 0.5 mg tablet 0.5 mg PO TID 5 Days #15 tab 03/18/19 03/20/19 Rx zolpidem 5 mg tablet 5 mg PO QHS 5 Days #5 tab 03/18/19 03/20/19 Rx Ertapenem Sodium [Invanz 1gm Vial] 1 gm IV Q24H 03/19/19 03/20/19 History Nystatin [Nystatin Topical Powder 1 gm TP QID 03/19/19 03/20/19 History 30GM*] Allergies Allergy/AdvReac Type Severity Reaction Status Date / Time No Known Allergies Allergy Verified 03/11/19 11:13 Exam Vital signs and Labs for Last 24 Hours: Temp Pulse Resp BP Pulse Ox 96.6 F L 69 18 96/54 L 99 03/20/19 18:41 03/20/19 18:41 03/20/19 18:41 03/20/19 19:16 03/20/19 18:41 Laboratory Results - last 24 hr 03/20/19 12:45: WBC 11.5 H D, RBC 4.71, Hgb 13.5, Hct 43.6, MCV 92.6, MCH 28.7, MCHC 31.0 L, RDW 15.8, Plt Count 384, MPV 8.6, Neut % (Auto) 73.7, Lymph % (Auto) 19.2, [place] % (Auto) 3.8, Eos % (Auto) 2.7, Baso % (Auto) 0.6, Neut # (Auto) 8.5 H, Lymph # (Auto) 2.2, [place] # (Auto) 0.4, Eos # (Auto) 0.3, Baso # (Auto) 0.1 03/20/19 12:45: Sodium 139, Potassium 3.1 L D, Chloride 105, Carbon Dioxide 17 L , Anion Gap 20.1 H, BUN 32 H D, Creatinine 2.14 H D, Estimated Creat Clear 32, Estimated GFR 24 L, Est GFR ( Amer) 29 L D, Glucose 169 H, Calcium 10.0, Total Bilirubin 0.2, AST 21, ALT 15, Alkaline Phosphatase 174 H, Troponin I < 0.02, C-Reactive Protein 1.2 H, Total Protein 8.1, Albumin 3.6, Globulin 4.5 H, Albumin/Globulin Ratio 0.8 L 03/20/19 12:45: ESR 96 H 03/20/19 14:11: Lactate 0.9 03/20/19 16:17: Troponin I < 0.02 03/20/19 18:17: POC Glucose 183 H I & O for Last 24 hours: Intake & Output 03/18/19 03/19/19 03/20/19 03/21/19 11:59 11:59 11:59 11:59 Weight 150 lb 3 oz Narrative: Patient appears older than her stated age, appears frail. Is is oriented x2, a little fuzzy about the date. Lungs have good air movement. Heart rate regular. Abdomen soft, nontender. Edema and clubbing are not noted. Poor skin turgor. Oropharynx dry but clear. No JVD. Assessment and Plan (1) STACY (acute kidney injury) Problem details: labs at baseline Current visit: Yes Status: Acute Category: Medical Code(s): N17.9 - Acute kidney failure, unspecified (2) Dehydration Current visit: Yes Status: Acute Category: Medical Code(s): E86.0 - Dehydration (3) Hypotension Current visit: Yes Status: Acute Qualifiers: Hypotension type: unspecified hypotension type Qualified Code(s): I95.9 - Hypotension, unspecified Category: Medical Code(s): I95.9 - Hypotension, unspecified (4) Complicated UTI (urinary tract infection) Problem details: ecoli and kleb pneumonia Current visit: No Status: Acute Category: Medical Code(s): N39.0 - Urinary tract infection, site not specified - Assessment and plan all Dx Assessment and Plan for all problems:: Admit to observation. IV fluids. Recheck labs tomorrow. Anticipate short stay discharge. Needs to continue Invanz.
[2019-03-21 07:40] LABS: Basophils # 0.1 K/mm3 (0-0.2); Basophils % 0.7 % (0.1-2.0); Eosinophils # 0.3 K/mm3 (0.0-0.4); Eosinophils % 3.5 % (0.1-12.0); Hematocrit 32.4 % (37.0-47.0); Lymphocytes # 2.1 K/mm3 (0.7-4.5); Lymphocytes % 21.8 % (10-50); Mean Corpuscular HGB Conc 31.4 g/dL (31.8-35.4); Mean Corpuscular Volume 92.6 fl (81-99); Mean Platelet Volume 8.6 fl (7.4-10.4); Monocytes # 0.3 K/mm3 (0.1-1.0); Monocytes % 3.2 % (1.7-9.3); Neutrophils # 6.8 K/mm3 (1.8-7.8); Neutrophils % 70.8 % (37.0-80.0); Platelet Count 278 K/mm3 (142-424); Red Cell Distribution Width 15.1 % (11.5-17.5); White Blood Count 9.7 K/mm3 (4.8-10.8)
[2019-03-21 07:48] LABS: Anion Gap 17.1 mEq/L (5-15)
[2019-03-21 07:55] LABS: Calcium 8.6 mg/dL (8.5-10.1)
--- NOTE | 2019-03-21 07:59 | Discharge Summary ---
General - General Admission date:: 03/20/19 Discharge date: 03/21/19 HPI HPI: 58-year-old white female who suffers from multiple medical problems including chronic kidney disease, chronic CHF and has recently been diagnosed with a significant urinary tract infection and was discharged from the hospital with intravenous Invanz 1 g daily for 7 days on March 16. She has been getting treatments as scheduled, but today in the infusion department complained of weakness and dizziness, blood pressure was very low and she was transferred to the ER for further evaluation where she was noted to be relatively hypotensive, and have acute kidney injury superimposed on chronic kidney disease with creatinine above 2. Admitted to hospital for IV fluids and readjustment of medications. Of note she denies fevers, reports some vomiting, she is a very poor historian and is really unable to give me more details of her symptoms. Hospital Course Hospital Course: Patient was admitted. She was placed on intravenous fluids and tolerated these well. Her creatinine dropped back to her baseline this morning. Potassium is very slightly low however patient feels drastically better, is able to sit up on the side of the bed, and has eaten 100% of her breakfast. She received Invanz here as she has been as an outpatient. This morning she will be discharged home. She will receive 1 dose of Invanz before discharge and then she will come back tomorrow for another dose of Invanz and then she will follow with Dr. Davis's office on Saturday. Of note, I have instructed her to hold her lisinopril dose until reevaluated by her primary care office Objective Vital signs: Temp Pulse Resp BP Pulse Ox 97.9 F 70 16 106/84 L 97 03/21/19 04:00 03/21/19 04:00 03/21/19 04:00 03/21/19 04:00 03/21/19 04:00 Narrative: Patient is pleasant, alert, oriented x3. Lungs are clear, oropharynx moist, no ENT abnormalities. No JVD. Heart rate regular. Abdomen soft and nontender Extremities warm and well-perfused. No neurologic deficits. Results Labs on day of discharge: Labs from last 24 hours 03/21/19 03/21/19 03/21/19 07:20 07:20 06:17 WBC 9.7 RBC 3.50 L D Hgb Hct 32.4 L MCV 92.6 MCH 29.1 MCHC 31.4 L RDW 15.1 Plt Count 278 D MPV 8.6 Neut % (Auto) 70.8 Lymph % (Auto) 21.8 [place] % (Auto) 3.2 Eos % (Auto) 3.5 Baso % (Auto) 0.7 Neut # (Auto) 6.8 Lymph # (Auto) 2.1 [place] # (Auto) 0.3 Eos # (Auto) 0.3 Baso # (Auto) 0.1 ESR Sodium 145 Potassium 3.1 L Chloride 112 H Carbon Dioxide 19 L Anion Gap 17.1 H BUN 23 H D Creatinine 1.43 H D Estimated Creat Clear 49 Estimated GFR 38 L Est GFR ( Amer) 46 L D Glucose 114 H D POC Glucose 102 Lactate Calcium 8.6 D Total Bilirubin AST ALT Alkaline Phosphatase Troponin I C-Reactive Protein Total Protein Albumin Globulin Albumin/Globulin Ratio 03/20/19 03/20/19 03/20/19 23:27 19:59 18:17 WBC RBC Hgb Hct MCV MCH MCHC RDW Plt Count MPV Neut % (Auto) Lymph % (Auto) [place] % (Auto) Eos % (Auto) Baso % (Auto) Neut # (Auto) Lymph # (Auto) [place] # (Auto) Eos # (Auto) Baso # (Auto) ESR Sodium Potassium Chloride Carbon Dioxide Anion Gap BUN Creatinine Estimated Creat Clear Estimated GFR Est GFR ( Amer) Glucose POC Glucose 161 H 192 H 183 H Lactate Calcium Total Bilirubin AST ALT Alkaline Phosphatase Troponin I C-Reactive Protein Total Protein Albumin Globulin Albumin/Globulin Ratio 03/20/19 03/20/19 03/20/19 16:17 14:11 12:45 WBC RBC Hgb Hct MCV MCH MCHC RDW Plt Count MPV Neut % (Auto) Lymph % (Auto) [place] % (Auto) Eos % (Auto) Baso % (Auto) Neut # (Auto) Lymph # (Auto) [place] # (Auto) Eos # (Auto) Baso # (Auto) ESR 96 H Sodium Potassium Chloride Carbon Dioxide Anion Gap BUN Creatinine Estimated Creat Clear Estimated GFR Est GFR ( Amer) Glucose POC Glucose Lactate 0.9 Calcium Total Bilirubin AST ALT Alkaline Phosphatase Troponin I < 0.02 C-Reactive Protein Total Protein Albumin Globulin Albumin/Globulin Ratio 03/20/19 03/20/19 12:45 12:45 WBC 11.5 H D RBC 4.71 Hgb 13.5 Hct 43.6 MCV 92.6 MCH 28.7 MCHC 31.0 L RDW 15.8 Plt Count 384 MPV 8.6 Neut % (Auto) 73.7 Lymph % (Auto) 19.2 [place] % (Auto) 3.8 Eos % (Auto) 2.7 Baso % (Auto) 0.6 Neut # (Auto) 8.5 H Lymph # (Auto) 2.2 [place] # (Auto) 0.4 Eos # (Auto) 0.3 Baso # (Auto) 0.1 ESR Sodium 139 Potassium 3.1 L D Chloride 105 Carbon Dioxide 17 L Anion Gap 20.1 H BUN 32 H D Creatinine 2.14 H D Estimated Creat Clear 32 Estimated GFR 24 L Est GFR ( Amer) 29 L D Glucose 169 H POC Glucose Lactate Calcium 10.0 Total Bilirubin 0.2 AST 21 ALT 15 Alkaline Phosphatase 174 H Troponin I < 0.02 C-Reactive Protein 1.2 H Total Protein 8.1 Albumin 3.6 Globulin 4.5 H Albumin/Globulin Ratio 0.8 L DS: Diagnosis - Discharge Diagnosis (1) STACY (acute kidney injury) Status: Resolved Problem details: labs at baseline (2) Dehydration Status: Resolved (3) Hypotension Status: Resolved (4) Complicated UTI (urinary tract infection) Status: Acute Problem details: ecoli and kleb pneumonia Discharge Plan - Patient Discharge Instructions ACTIVITY: Continue current activity DIET: continue same diet Patient Instructions: DI for Dehydration -- Adult, DI for Acute Kidney Injury - Follow up Plan Follow up with: Cosme Davis MD [Primary Care Provider] - 03/23/19 Disposition: Home, Self-Half-Way Medications: Home Medications Medication Instructions Recorded Confirmed Type aspirin 81 mg tablet,delayed 81 mg PO DAILY #90 tab 01/21/19 03/20/19 Rx release cholecalciferol (vitamin D3) 25 1,000 unit PO DAILY #30 tab 02/13/19 03/20/19 Rx mcg (1,000 unit) tablet Ondansetron [Zofran 4mg ODT] 4 mg PO Q4HP PRN 10 Days #30 03/06/19 03/20/19 Rx tab.rapdis Atorvastatin Calcium [Atorvastatin 40 mg PO DAILY 03/11/19 03/20/19 History 40mg Tab] Escitalopram Oxalate [Lexapro] 20 mg PO DAILY 03/11/19 03/20/19 History Fluconazole [Diflucan 200mg tablet] 200 mg PO DAILY 03/11/19 03/20/19 History Furosemide [Furosemide 20mg Tab] 20 mg PO DAILY 03/11/19 03/20/19 History Insulin NPH Hum/Reg Insulin Hm 30 unit SQ BID 03/11/19 03/20/19 History [Relion Novolin 70-30 Vial] Levothyroxine Sodium [Synthroid 25 mcg PO DAILY 03/11/19 03/20/19 History 25mcg (0.025mg) tablet] Nystatin [Nystatin Topical Powder 1 applicatio TP QID 03/11/19 03/20/19 History 30GM*] Sulfamethoxazole/Trimethoprim 1 each PO BID 03/11/19 03/20/19 History [Bactrim DS tablet] Clopidogrel Bisulfate [Plavix 75mg 75 mg PO DAILY 03/12/19 03/20/19 History Tab] Ergocalciferol (Vitamin D2) 50,000 unit PO WEEKLY 03/12/19 03/20/19 History [Drisdol] Gabapentin [Gabapentin 300mg Cap] 300 mg PO HS 03/12/19 03/20/19 History carvediloL [Carvedilol 6.25mg Tab] 6.25 mg PO BID 03/12/19 03/20/19 History dilTIAZem HCL [Cardizem CD 120mg 120 mg PO DAILY 03/12/19 03/20/19 History Cap] lisinopriL [Lisinopril 2.5mg Tab] 2.5 mg PO DAILY 03/12/19 03/20/19 History alprazolam 0.5 mg tablet 0.5 mg PO TID 5 Days #15 tab 03/18/19 03/20/19 Rx zolpidem 5 mg tablet 5 mg PO QHS 5 Days #5 tab 03/18/19 03/20/19 Rx Ertapenem Sodium [Invanz 1gm Vial] 1 gm IV Q24H 03/19/19 03/20/19 History Nystatin [Nystatin Topical Powder 1 gm TP QID 03/19/19 03/20/19 History 30GM*] Prescriptions/Medication Reconciliation: Continued alprazolam 0.5 mg tablet 0.5 mg PO TID 5 Days #15 tab zolpidem 5 mg tablet 5 mg PO QHS 5 Days #5 tab aspirin 81 mg tablet,delayed release 81 mg PO DAILY #90 tab cholecalciferol (vitamin D3) 25 mcg (1,000 unit) tablet 1,000 unit PO DAILY #30 tab Ondansetron [Zofran 4mg ODT] 4 mg PO Q4HP PRN 10 Days #30 tab.rapdis PRN Reason: Nausea Levothyroxine Sodium [Synthroid 25mcg (0.025mg) tablet] 25 mcg PO DAILY Escitalopram Oxalate [Lexapro] 20 mg PO DAILY carvediloL [Carvedilol 6.25mg Tab] 6.25 mg PO BID Clopidogrel Bisulfate [Plavix 75mg Tab] 75 mg PO DAILY dilTIAZem HCL [Cardizem CD 120mg Cap] 120 mg PO DAILY Gabapentin [Gabapentin 300mg Cap] 300 mg PO HS Nystatin [Nystatin Topical Powder 30GM*] 1 gm TP QID Ertapenem Sodium [Invanz 1gm Vial] 1 gm IV Q24H Insulin NPH Hum/Reg Insulin Hm [Relion Novolin 70-30 Vial] 30 unit SQ BID Atorvastatin Calcium [Atorvastatin 40mg Tab] 40 mg PO DAILY Sulfamethoxazole/Trimethoprim [Bactrim DS tablet] 1 each PO BID Fluconazole [Diflucan 200mg tablet] 200 mg PO DAILY Nystatin [Nystatin Topical Powder 30GM*] 1 applicatio TP QID Ergocalciferol (Vitamin D2) [Drisdol] 50,000 unit PO WEEKLY Discontinued lisinopriL [Lisinopril 2.5mg Tab] 2.5 mg PO DAILY Furosemide [Furosemide 20mg Tab] 20 mg PO DAILY - Problem Reconciliation Problems Reviewed?: Yes
[2019-03-21 09:10] LABS: Hemoglobin 10.2 g/dL (12.2-16.2)
--- NOTE | 2019-03-21 11:50 | Electrocardiograph Report ---
APPROVED REPORT Exam: Resting ECG HR:70 bpm ECG Measurements Heart Rate 70 AXES WV 136 P 83 QRSd 166 QRS 213 QT 490 T50 QTc 529 <Conclusion> AV sequential or dual chamber electronic pacemaker Electronically signed by : Jacob Powell, 03/21/2019 11:50:09
== END 2019-03-21 13:13 | disposition home or self-care (01) ==
LOC: ER 12:06 → 2ND 12:06
PROVIDERS: ADMIT Internal Medicine Adolescent Medicine; ATTEND Emergency Medicine
DX: N17.9 Acute kidney failure, unspecified; R53.1 Weakness; N18.9 Chronic kidney disease, unspecified; I12.9 Hypertensive chronic kidney disease with stage 1 through stage 4 chronic kidney disease, or unspecified chronic kidney disease; I50.9 Heart failure, unspecified; E86.0 Dehydration; Z79.4 Long term (current) use of insulin; I73.9 Peripheral vascular disease, unspecified; I65.29 Occlusion and stenosis of unspecified carotid artery; Z95.0 Presence of cardiac pacemaker; B96.20 Unspecified Escherichia coli [E. coli] as the cause of diseases classified elsewhere; Z72.0 Tobacco use; Z16.11 Resistance to penicillins; D64.9 Anemia, unspecified; I95.9 Hypotension, unspecified; Z79.899 Other long term (current) drug therapy; N39.0 Urinary tract infection, site not specified; B96.1 Klebsiella pneumoniae [K. pneumoniae] as the cause of diseases classified elsewhere; E11.22 Type 2 diabetes mellitus with diabetic chronic kidney disease; F12.90 Cannabis use, unspecified, uncomplicated; E03.9 Hypothyroidism, unspecified; I25.2 Old myocardial infarction; E78.5 Hyperlipidemia, unspecified; E86.1 Hypovolemia
CPT/HCPCS: 36415; 80048; 80053; 82962; 83605; 84484; 85025; 85651; 86140; 87040; 93005; 96365; 96372; 96401; 99284; G0378; J1335

== ENCOUNTER 2019-03-22 08:11 | Outpatient (CLI) | payer MEDICARE, MEDICAID, SELFPAY ==
[2019-03-22 08:35] VITALS: BP 105/58; PULSE 40; RESP 16; TEMP 36.5; O2SAT 99
[2019-03-22 08:50] VITALS: BP 88/56; BP 96/62; BP 98/55
--- NOTE | 2019-03-22 08:51 | PC.NURSE ---
Orthostatics requested by Dr Powell, completed by Natividad Feliciano RN. Dr Powell notified of results;
== END 2019-03-22 08:45 | disposition home or self-care (01) ==
PROVIDERS: PCP Emergency Medicine; Visit Provider Emergency Medicine
DX: N39.0 Urinary tract infection, site not specified (principal)
CPT/HCPCS: 96372; J1335

== ENCOUNTER 2019-03-23 14:32 | Outpatient (CLI) | payer MEDICARE, MEDICAID, SELFPAY ==
[2019-03-23] VITALS (7 sets, daily range): BP systolic 87–98; BP diastolic 49–62; PULSE 61–74; RESP 16–18; TEMP 36.6–36.7; O2SAT 97–99; BMI 64.5
[2019-03-23 16:02] LABS: Basophils # 0.1 K/mm3 (0-0.2); Basophils % 0.7 % (0.1-2.0); Eosinophils # 0.5 K/mm3 (0.0-0.4); Eosinophils % 4.4 % (0.1-12.0); Hematocrit 36.6 % (37.0-47.0); Hemoglobin 11.5 g/dL (12.2-16.2); Lymphocytes # 2.7 K/mm3 (0.7-4.5); Lymphocytes % 26.2 % (10-50); Mean Corpuscular HGB Conc 31.6 g/dL (31.8-35.4); Mean Corpuscular Hemoglobin 29.1 pg (27.0-31.2); Mean Corpuscular Volume 92.3 fl (81-99); Mean Platelet Volume 8.9 fl (7.4-10.4); Monocytes # 0.3 K/mm3 (0.1-1.0); Monocytes % 3.3 % (1.7-9.3); Neutrophils # 6.7 K/mm3 (1.8-7.8); Neutrophils % 65.3 % (37.0-80.0); Platelet Count 280 K/mm3 (142-424); Red Blood Count 3.96 M/mm3 (4.20-5.40); Red Cell Distribution Width 15.4 % (11.5-17.5); White Blood Count 10.3 K/mm3 (4.8-10.8)
[2019-03-23 16:09] LABS: Anion Gap 17.6 mEq/L (5-15); Blood Urea Nitrogen 22 mg/dL (7-18); Carbon Dioxide 21 mmol/L (21.0-32.0); Chloride 108 mmol/L (98-107); Creatinine Clearance Estimated 34 mL/min (50-200); Creatinine,Serum 1.41 mg/dL (0.55-1.02); Estimated Glomerular Filt Rate 39 ml/min (>60); GFR (African American) 47 ML/MIN (>60); Glucose 156 mg/dL (74-106); Potassium 3.6 mmoL/L (3.5-5.1); Sodium 143 mmol/L (137-145)
[2019-03-23 16:14] LABS: Calcium 9.6 mg/dL (8.5-10.1)
== END 2019-03-23 18:15 | disposition home or self-care (01) ==
LOC: INF 14:32
PROVIDERS: Visit Provider Emergency Medicine
DX: I95.1 Orthostatic hypotension (principal); N39.0 Urinary tract infection, site not specified
CPT/HCPCS: 80048; 85025; 96360; 96361; 96372; J1335

== ENCOUNTER → 2019-04-20 13:29 | Outpatient (CLI) | payer MEDICARE, MEDICAID, SELFPAY ==
[2019-04-20 14:16] LABS: Anion Gap 16.5 mEq/L (5-15); Blood Urea Nitrogen 25 mg/dl (7-17); Carbon Dioxide 23 mmol/L (22.0-30.0); Chloride 105 mmol/L (98-107); Estimated Glomerular Filt Rate 51 ml/min (>60); GFR (African American) 62 ML/MIN (>60); Glucose 84 mg/dl (74-100); Potassium 4.5 mmoL/L (3.5-5.1); Sodium 140 mmol/L (136-145)
== END ==
PROVIDERS: Visit Provider Emergency Medicine
DX: N28.9 Disorder of kidney and ureter, unspecified (principal)
CPT/HCPCS: 80048

== ENCOUNTER → 2019-06-17 15:05 | Outpatient (CLI) | payer MEDICARE, MEDICAID, SELFPAY ==
[2019-06-17 15:46] LABS: Chloride 107 mmol/L (98-107); Potassium 4.6 mmoL/L (3.5-5.1); Sodium 141 mmol/L (136-145)
[2019-06-17 15:48] LABS: Alanine Aminotransferase 12 U/L (12-78); Aspartate Amino Transferase 18 U/L (14-36); Blood Urea Nitrogen 31 mg/dl (7-17); Estimated Glomerular Filt Rate 42 ml/min (>60); GFR (African American) 51 ML/MIN (>60)
[2019-06-17 15:49] LABS: Albumin Level 4.5 g/dl (3.5-5.0); Albumin/Globulin Ratio 1.3 (1.1-1.8); Alkaline Phosphatase 147 U/L (38-126); Anion Gap 16.6 mEq/L (5-15); Bilirubin,Total 0.3 mg/dl (0.2-1.3); Calcium 9.9 mg/dl (8.4-10.2); Carbon Dioxide 22 mmol/L (22.0-30.0); Chol/HDL Ratio 4.2 (1-3.5); Cholesterol 148 mg/dl (140-200); Globulin 3.4 g/dL (1.3-3.2); Glucose 137 mg/dl (74-100); HDL Cholesterol 35 mg/dl (40-60); Total Protein,Serum 7.9 g/dl (6.3-8.2); Triglycerides 98 mg/dl (30-150); VLDL Cholesterol 20 mg/dL (0-40)
[2019-06-17 15:55] LABS: Basophils # 0.1 K/mm3 (0-0.2); Basophils % 1.4 % (0.1-2.0); Eosinophils # 0.5 K/mm3 (0.0-0.4); Eosinophils % 5.3 % (0.1-12.0); Hematocrit 42.5 % (37.0-47.0); Hemoglobin 12.8 g/dL (12.2-16.2); Lymphocytes # 2.3 K/mm3 (0.7-4.5); Lymphocytes % 25.9 % (10-50); Mean Corpuscular HGB Conc 30.2 g/dL (31.8-35.4); Mean Platelet Volume 8.3 fl (7.4-10.4); Monocytes # 0.4 K/mm3 (0.1-1.0); Neutrophils # 5.7 K/mm3 (1.8-7.8); Neutrophils % 63.4 % (37.0-80.0); Platelet Count 342 K/mm3 (142-424); Red Blood Count 4.43 M/mm3 (4.20-5.40); Red Cell Distribution Width 14.6 % (11.5-17.5); White Blood Count 9.1 K/mm3 (4.8-10.8)
[2019-06-17 16:00] LABS: Direct LDL Cholesterol 117.71 mg/dL (100-129)
[2019-06-17 16:08] LABS: T4 (Thyroxine) 11.1 ug/dl (5.53-11.0)
[2019-06-17 16:22] LABS: Thyroid Stimulating Hormone 3.14 uIU/mL (0.465-4.68)
[2019-06-19 09:58] LABS: Creatinine, Urine 53.6 mg/dL (Not Estab.)
[2019-06-19 11:20] LABS: Vitamin D 25 Hydroxy 52.4 ng/mL (30.0-100.0)
== END ==
PROVIDERS: Visit Provider Emergency Medicine
DX: E11.9 Type 2 diabetes mellitus without complications (principal); G47.00 Insomnia, unspecified; Z79.4 Long term (current) use of insulin
CPT/HCPCS: 80053; 80061; 82043; 82570; 82652; 84436; 84443; 85025

== ENCOUNTER → 2019-06-26 10:32 | Outpatient (CLI) | payer MEDICARE, MEDICAID, SELFPAY | PROVIDERS: PCP Emergency Medicine; Visit Provider Emergency Medicine | DX: I73.9 Peripheral vascular disease, unspecified (principal) | CPT/HCPCS: 93923 ==

== ENCOUNTER → 2019-07-23 10:18 | Outpatient (CLI) | payer MEDICARE, MEDICAID, SELFPAY ==
[2019-07-23 11:30] LABS: Anion Gap 20.2 mEq/L (5-15); Blood Urea Nitrogen 41 mg/dl (7-17); Calcium 10.4 mg/dl (8.4-10.2); Carbon Dioxide 22 mmol/L (22.0-30.0); Chloride 105 mmol/L (98-107); Estimated Glomerular Filt Rate 39 ml/min (>60); GFR (African American) 47 ML/MIN (>60); Glucose 224 mg/dl (74-100); Potassium 5.2 mmoL/L (3.5-5.1); Sodium 142 mmol/L (136-145)
[2019-07-23 11:33] LABS: Hemoglobin A1C 6.9 % (4.0-6.0)
== END ==
PROVIDERS: Visit Provider Emergency Medicine
DX: E13.9 Other specified diabetes mellitus without complications (principal); N17.9 Acute kidney failure, unspecified; Z79.4 Long term (current) use of insulin
CPT/HCPCS: 36415; 80048; 83036

== ENCOUNTER 2019-09-02 12:32 | Emergency (ER) | payer MEDICARE, MEDICAID, SELFPAY ==
[2019-09-02 12:50] VITALS: BP 127/64; PULSE 92; RESP 18; TEMP 37.4; O2SAT 98; BMI 30.2
--- NOTE | 2019-09-02 13:10 | HMH.EDGENADL ---
ED Disposition Clinical Impression: Complication of urostomy Hematuria Qualifiers: Hematuria type: gross Qualified Code(s): R31.0 - Gross hematuria Disposition: Home, Self-Care Condition on Discharge: Good Instructions: DI for Hematuria Additional Instructions: Follow-up with urologist Dr. Catsro in the office, call for appointment. See Dr. Davis in his office on Saturday. Referrals: Cosme Davis MD [Primary Care Provider] - - Critical Care Critical Care Time: No Attestation: On 09/02/19, the high probability of a clinically significant, sudden or life threatening deterioration of the following system(s) required my full and direct attention, intervention and personal management. The time I documented below is in addition to time spent performing reported procedures but includes the following listed in this critical care notation. Medical Decision Making - Medical Records Medical records reviewed: Yes: I reviewed the patient's medical records. - [place] Inquiry Pt receiving controlled substance: No Vital Signs: 09/02/19 12:50 09/02/19 13:36 09/02/19 14:41 Temperature 99.4 F Temperature Source Oral Pulse Rate Pulse Rate [Radial] 92 H 82 82 Respiratory Rate 18 Blood Pressure Blood Pressure [Right Arm] 127/64 149/78 H 139/67 Blood Pressure Mean [Right Arm] 85 101 91 Blood Pressure Source Blood Pressure Source [Right Arm] Automatic Cuff Automatic Cuff Automatic Cuff Blood Pressure Position Blood Pressure Position [Right Arm] Sitting Sitting Sitting 02 Sat by Pulse Oximetry 98 97 97 Oxygen Delivery Method Room Air Room Air Room Air 09/02/19 15:07 Temperature 98.0 F Temperature Source Oral Pulse Rate 82 Pulse Rate [Radial] Respiratory Rate 18 Blood Pressure 139/67 Blood Pressure [Right Arm] Blood Pressure Mean [Right Arm] Blood Pressure Source Automatic Cuff Blood Pressure Source [Right Arm] Blood Pressure Position Sitting Blood Pressure Position [Right Arm] 02 Sat by Pulse Oximetry Oxygen Delivery Method Room Air - Lab Data Lab results reviewed: Yes: I reviewed the patient's lab results. Lab Results 09/02/19 13:03: WBC 11.2 H, RBC 4.04 L, Hgb 11.9 L, Hct 35.5 L, MCV 87.8, MCH 29.3, MCHC 33.4, RDW 15.8, Plt Count 436 H, MPV 8.2, Neut % (Auto) 72.3, Lymph % (Auto) 19.3, [place] % (Auto) 3.0, Eos % (Auto) 4.5, Baso % (Auto) 0.8, Neut # (Auto) 8.1 H, Lymph # (Auto) 2.2, [place] # (Auto) 0.3, Eos # (Auto) 0.5 H, Baso # (Auto) 0.1 09/02/19 13:03: PT 10.9, INR 1.06 09/02/19 13:03: Sodium 139, Potassium 4.3, Chloride 107, Carbon Dioxide 21 L, Anion Gap 15.3 H, BUN 29 H, Creatinine 1.50 H, Estimated Creat Clear 47, Estimated GFR 36 L, Est GFR ( Amer) 43 L, Glucose 268 H, Calcium 9.5, Total Bilirubin 0.4, AST 18, ALT 15, Alkaline Phosphatase 114, Total Protein 7.1, Albumin 3.9, Globulin 3.2, Albumin/Globulin Ratio 1.2 09/02/19 14:02: Urine Color Yellow, Urine Appearance Clear, Urine pH 6.0, Ur Specific [place] 1.020, Urine Protein 1+, Urine Glucose (UA) Negative, Urine Ketones Negative, Urine Blood 3+, Urine Nitrate Negative, Urine Bilirubin Negative, Urine Urobilinogen 0.2, Ur Leukocyte Esterase Trace, Urine RBC 20-50, Urine WBC 5-10, Ur Squamous Epith Cells Occasional, Amorphous Sediment 2+, Urine Bacteria 1+ Result diagrams: 09/02/19 13:03 09/02/19 13:03 Orders (Tests/Meds): ED MEDICATIONS Discontinued Medications Generic Name Dose Route Start Last Admin Trade Name Ranjan PRN Reason Stop Dose Admin Sodium Chloride 1,000 mls @ 999 mls/hr 09/02/19 13:45 09/02/19 13:36 Sod Chlor 0.9% 1000ml Bag IV 09/02/19 14:45 999 mls/hr .Q1H1M BIJAN Administration - Physician Consults Physician Consulted: Ryan Time: 14:09 Reason -: Pt condition Comment/Response: If urine analysis shows signs of UTI, treated with antibiotics. Follow-up in the office with Dr. Castro. Follow-up in his office on Saturday. General Adult HPI - General Chief complaint: Recheck/A
[2019-09-02 13:15] LABS: Basophils # 0.1 K/mm3 (0-0.2); Basophils % 0.8 % (0.1-2.0); Eosinophils # 0.5 K/mm3 (0.0-0.4); Eosinophils % 4.5 % (0.1-12.0); Hematocrit 35.5 % (37.0-47.0); Hemoglobin 11.9 g/dL (12.2-16.2); Lymphocytes # 2.2 K/mm3 (0.7-4.5); Lymphocytes % 19.3 % (10-50); Mean Corpuscular HGB Conc 33.4 g/dL (31.8-35.4); Mean Corpuscular Hemoglobin 29.3 pg (27.0-31.2); Mean Corpuscular Volume 87.8 fl (81-99); Mean Platelet Volume 8.2 fl (7.4-10.4); Monocytes # 0.3 K/mm3 (0.1-1.0); Neutrophils # 8.1 K/mm3 (1.8-7.8); Neutrophils % 72.3 % (37.0-80.0); Platelet Count 436 K/mm3 (142-424); Red Blood Count 4.04 M/mm3 (4.20-5.40); Red Cell Distribution Width 15.8 % (11.5-17.5); White Blood Count 11.2 K/mm3 (4.8-10.8)
[2019-09-02 13:18] LABS: Chloride 107 mmol/L (98-107)
[2019-09-02 13:19] LABS: Potassium 4.3 mmoL/L (3.5-5.1); Sodium 139 mmol/L (136-145)
[2019-09-02 13:21] LABS: Alanine Aminotransferase 15 U/L (12-78); Aspartate Amino Transferase 18 U/L (14-36); Blood Urea Nitrogen 29 mg/dl (7-17); Creatinine Clearance Estimated 47 mL/min (50-200); Estimated Glomerular Filt Rate 36 ml/min (>60); GFR (African American) 43 ML/MIN (>60)
[2019-09-02 13:22] LABS: Albumin Level 3.9 g/dl (3.5-5.0); Albumin/Globulin Ratio 1.2 (1.1-1.8); Alkaline Phosphatase 114 U/L (38-126); Anion Gap 15.3 mEq/L (5-15); Bilirubin,Total 0.4 mg/dl (0.2-1.3); Calcium 9.5 mg/dl (8.4-10.2); Carbon Dioxide 21 mmol/L (22.0-30.0); Globulin 3.2 g/dL (1.3-3.2); Glucose 268 mg/dl (74-100); INR 1.06 (0.9-1.1); Prothrombin Time 10.9 seconds (9.4-11.8); Total Protein,Serum 7.1 g/dl (6.3-8.2)
[2019-09-02 13:36] VITALS: BP 149/78; PULSE 82; O2SAT 97
[2019-09-02 14:11] LABS: Microscopic, Urine URINE MICROSCOPIC (MICROSCOPIC)
[2019-09-02 14:12] LABS: Appearance,Urine CLEAR (Clear); Bilirubin,Urine Negative (Negative); Blood, Urine 3+ (Negative); Color,Urine YELLOW (Yellow); Glucose,Urine (UA) Negative (Negative); Ketones,Urine Negative (Negative); Leukocyte Esterase,Urine TRACE (Negative); Nitrate,Urine Negative (Negative); Protein,Urine 1+ (Negative); Urobilinogen,Urine 0.2 EU/dl (0.2)
[2019-09-02 14:41] VITALS: BP 139/67; PULSE 82; O2SAT 97
[2019-09-02 14:48] LABS: Amorphous Sediment,Urine 2+ /lpf; Bacteria,Urine 1+ /lpf; RBC,Urine 20-50 #/hpf (0-3); Squamous Epithelial Cell,Urine Occasional #/hpf (0-5)
[2019-09-02 15:07] VITALS: BP 139/67; PULSE 82; RESP 18; TEMP 36.7; O2SAT 97
== END 2019-09-02 15:08 | disposition home or self-care (01) ==
PROVIDERS: Emergency Provider Emergency Medicine; PCP Emergency Medicine
DX: N99.528 Other complication of incontinent external stoma of urinary tract (principal); Z79.4 Long term (current) use of insulin; C67.9 Malignant neoplasm of bladder, unspecified; E11.65 Type 2 diabetes mellitus with hyperglycemia
CPT/HCPCS: 80053; 81001; 85025; 85610; 96365; 99283

== ENCOUNTER → 2019-10-27 08:59 | Outpatient (CLI) | payer MEDICARE, MEDICAID, SELFPAY ==
--- NOTE | 2019-10-27 09:03 | CT_ITS ---
PROCEDURE: CT ABDOMEN PELVIS WO CON CLINICAL INDICATION: h/o balddder cancer h/o bladder cancer,urostomy, follow-up bladder cancer COMPARISON: No exams were available for comparison TECHNIQUE: Axial images obtained with sagittal and coronal reformats. All CT scans at the facility use one or more dose reduction, viz: automated exposure control, ma/kV adjustment per patient size (including targeted exams where dose is matched to indication, i.e. head), or iterative reconstruction technique. FINDINGS: LOWER THORAX: There are numerous small bilateral pulmonary nodular opacities measuring up to 5 mm in the right lower lobe. There are no previous exams available for comparison. These could be inflammatory/infectious or neoplastic. Dedicated chest CT may provide further evaluation. Artifact is present from cardiac pacemaker device the. Prior MVR. ABDOMEN & PELVIS: The liver, spleen, and left adrenal gland have an unremarkable appearance. There is a nodule of the right adrenal gland which measures 1.5 cm which is -6 Hounsfield units and may be due to an adenoma.. There is a lobular area of decreased density within the pancreatic head region. This measures 3 by 2 cm. Follow-up with MRI suggested. There is lobularity of the renal outline on both sides. No renal or ureteral calculi are evident. There has been a prior cystectomy with an ileal loop with a right lower quadrant ostomy which is just lateral to the abdominal wall defect representing the ventral abdominal wall hernia. There is minimal prominence of the right mid to distal ureter just proximal to the ileal loop. There is a large ventral abdominal wall hernia containing large and small bowel without evidence of bowel obstruction. No adenopathy. No evidence of diverticulitis or appendicitis. No acute bony findings. IMPRESSION: 1. Prior cystectomy with right lower quadrant ileal loop an ostomy. No hydronephrosis or hydroureter. There is minimal dilatation of the mid to distal aspect of the right ureter just proximal to the ileal loop 2. Lobulated hypodense area in the head of the pancreas at 3 x 2 cm. Comparison with old films suggested. There are no old films available at this institution. Suggest MRI of the pancreas without and with contrast and with MRCP 3. Large ventral abdominal wall hernia containing large and small bowel. No evidence of bowel obstruction. 4. Multiple noncalcified pulmonary nodules in the lower lobes and right middle lobe. These measure up to 5 mm and could be inflammatory/infectious or neoplastic. Comparison with old films needed. Chest CT may provide further evaluation. Dictated by: Eulogio Lombardo MD 10/28/2019 12:34 Eulogio Lombardo MD in [place] 10/28/2019 12:34
== END ==
PROVIDERS: PCP Emergency Medicine; Visit Provider Urology
DX: Z85.51 Personal history of malignant neoplasm of bladder (principal)
CPT/HCPCS: 74176

== ENCOUNTER 2019-10-30 10:48 | Day surgery (SDC) | payer MEDICARE, MEDICAID, SELFPAY ==
[2019-10-30 11:11] VITALS: BMI 34.1
[2019-10-30 11:21] VITALS: BP 138/81; PULSE 78; RESP 18; TEMP 36.3; O2SAT 99
[2019-10-30 11:39] LABS: POC Glucose,Bedside 76 (70-110)
[2019-10-30 12:09] LABS: Coronavirus 19 IgG Antibody Negative (Negative); Coronavirus 19 IgM Antibody Negative (Negative)
[2019-10-30 15:16] VITALS: BP 151/79; PULSE 51; RESP 16; TEMP 36.7; O2SAT 98
--- NOTE | 2019-10-30 15:38 | HMH.OPNOTE ---
Date of procedure: 10/30/19 Pre-op Diagnosis:: History of bladder cancer Post-op Diagnosis:: History of bladder cancer Procedure performed:: Cystoscopy of ileal conduit Surgeon:: Jorge Castro MD Anesthesia: local Estimated blood loss (mL): 0 Clinical Note:: 59-year-old white female with history of bladder cancer status post cystectomy in 2005. She has not followed up with urology for several years and presents for cystoscopic evaluation today. CT scan was performed recently which showed no evidence of hydronephrosis or hydroureters. She did have evidence of a 3 cm pancreatic mass as well as some small pulmonary nodules. Operative findings:: Patient taken to the treatment room on a stretcher. Her ostomy bag was removed from the urostomy. Urostomy was pink and patent. She was prepped and draped in standard surgical fashion. The flexible cystoscope introduced into the stoma and the ileal conduit was examined in its entirety. There is no evidence of mucosal abnormalities, stones or infection. The scope removed patient tolerated procedure well. Stoma appliance was replaced we will see her back in 1 year in follow-up. We will send a note to Dr. Davis regarding the pancreatic mass and pulmonary nodules. Operative note:: See above Condition: stable Disposition: same day Specimens:: None Complications:: None
== END 2019-10-30 12:50 | disposition home or self-care (01) ==
LOC: OUTP 10:50
PROVIDERS: PCP Emergency Medicine; Visit Provider Urology
PROC: (CPT 52000; principal; 2019-10-30 11:15)
DX: N18.9 Chronic kidney disease, unspecified (principal); E11.9 Type 2 diabetes mellitus without complications; I25.10 Atherosclerotic heart disease of native coronary artery without angina pectoris; F41.9 Anxiety disorder, unspecified; Z85.51 Personal history of malignant neoplasm of bladder; F32.9 Major depressive disorder, single episode, unspecified; Z95.1 Presence of aortocoronary bypass graft; Z90.89 Acquired absence of other organs; F12.90 Cannabis use, unspecified, uncomplicated; Z72.0 Tobacco use
CPT/HCPCS: 52000; 82962; 86328

== ENCOUNTER 2019-11-06 12:22 | Emergency (ER) | payer MEDICARE, MEDICAID, SELFPAY ==
[2019-11-06 12:36] VITALS: BP 139/53; PULSE 83; RESP 16; TEMP 36.8; O2SAT 99; BMI 51.0
--- NOTE | 2019-11-06 13:01 | HMH.EDUTC ---
[facility] [place] Clinical Impression: Pain, dental, Dental abscess Disposition: Home, Self-Care Condition on Discharge: Good Instructions: Tooth Abscess Additional Instructions: Take the medications as directed. Follow up with your dentist as we discussed. GO TO THE ER FOR ANY WORSENING SYMPTOMS OR CONCERNS. Prescriptions: Ibuprofen [Ibuprofen 600mg Tablet] 600 mg PO Q6HP PRN #30 tab PRN Reason: Mild Pain Transmission Status: Received by [facility] Amoxicillin/Potassium Clav [Augmentin 875-125 Tablet] 1 tab PO Q12H 10 Days #20 tab Transmission Status: Received by [facility] Referrals: Cosme Davis MD [Primary Care Provider] - Time of Disposition: 13:08 Medical Decision Making - Medical Records Medical records reviewed: No: I reviewed the patient's medical records. - Aamdor Inquiry Pt receiving controlled substance: No Vital Signs: 11/06/19 12:36 11/06/19 13:12 Temperature 98.3 F 98.3 F Temperature Source Oral Oral Pulse Rate 83 Pulse Rate [Radial] 83 Respiratory Rate 16 16 Blood Pressure 139/53 L Blood Pressure [Right Arm] 139/53 L Blood Pressure Mean [Right Arm] 81 Blood Pressure Source Automatic Cuff Blood Pressure Source [Right Arm] Automatic Cuff Blood Pressure Position Sitting Blood Pressure Position [Right Arm] Sitting 02 Sat by Pulse Oximetry 99 Oxygen Delivery Method Room Air Room Air [facility] [place] HPI - General Stated complaint: dental pain Time Seen by Provider: 11/06/19 12:45 Mode of Arrival: Ambulatory Source of Information: Patient Limitations: No Limitations Description of Symptoms (Recalled from Triage Doc. by RN): broken tooth. states it is infected HEENT Symptoms (Recalled from RN notes): Yes Resp Symptoms (Recalled from RN notes): No Skin Symptoms (Recalled from RN notes): No MS Symptoms (Recalled from RN notes): No Functional Status (Recalled from RN notes): wnl - History of Present Illness Provider Complaint: She c/o right upper jaw dental pain. She says that she has a broken tooth and it has got infected. She has a dentist, but she has been unable to get in there to be seen. - Related Data Home Medications Medication Instructions Recorded Confirmed Insulin NPH Hum/Reg Insulin Hm 30 unit SQ BID 03/11/19 10/30/19 [Relion Novolin 70-30 Vial] aspirin 81 mg tablet,delayed 81 mg PO DAILY tab 10/12/19 10/30/19 release diltiazem HCl 60 mg 60 mg PO DAILY cap 10/12/19 10/30/19 capsule,extended release 12 hr losartan 25 mg tablet 25 mg PO DAILY tab 10/12/19 10/30/19 Cholecalciferol (Vitamin D3) See Rx Instructions .ROUTE .COMPLEX 10/30/19 10/30/19 [Vitamin D3 1,000 Unit Tab] Clopidogrel Bisulfate [Plavix] 75 mg PO DAILY 10/30/19 10/30/19 Pravastatin Sodium [Pravachol] 20 mg PO DAILY 10/30/19 10/30/19 buPROPion HCL [Wellbutrin XL] 300 mg PO DAILY 10/30/19 10/30/19 Previous Rx's Medication Instructions Recorded atorvastatin 40 mg tablet 40 mg PO DAILY #90 tab 08/18/19 ergocalciferol (vitamin D2) 1,250 50,000 unit PO WEEKLY #90 cap 08/18/19 mcg (50,000 unit) capsule alprazolam 0.25 mg tablet 0.25 mg PO TID #90 tab 09/04/19 gabapentin 300 mg capsule 300 mg PO HS #30 cap 09/04/19 zolpidem 5 mg tablet 5 mg PO QHS #30 tab 09/04/19 levothyroxine 25 mcg tablet 25 mcg PO DAILY #90 tab 10/21/19 Amoxicillin/Potassium Clav 1 tab PO Q12H 10 Days #20 tab 11/06/19 [Augmentin 875-125 Tablet] Ibuprofen [Ibuprofen 600mg 600 mg PO Q6HP PRN #30 tab 11/06/19 Tablet] Allergies Allergy/AdvReac Type Severity Reaction Status Date / Time No Known Allergies Allergy Verified 10/30/19 11:20 - Worker's Comp Is this a Worker's Comp case?: No [facility] History - Hepatitis A Screen Drug use history?: No High risk sexual behaviors?: No History of sexually transmitted infection?: No Currently employed?: No Childcare worker?: No Do you have indoor plumbing?: Yes Do you have electricity?: Yes Attest
[2019-11-06 13:12] VITALS: BP 139/53; PULSE 83; RESP 16; TEMP 36.8; O2SAT 99
== END 2019-11-06 13:13 | disposition home or self-care (01) ==
PROVIDERS: Emergency Provider Nurse Practitioner Family; PCP Emergency Medicine
DX: K04.7 Periapical abscess without sinus (principal); E11.9 Type 2 diabetes mellitus without complications; Z79.4 Long term (current) use of insulin; I25.2 Old myocardial infarction; F41.8 Other specified anxiety disorders; E78.5 Hyperlipidemia, unspecified; E03.9 Hypothyroidism, unspecified; F12.10 Cannabis abuse, uncomplicated; F17.210 Nicotine dependence, cigarettes, uncomplicated; Z95.0 Presence of cardiac pacemaker
CPT/HCPCS: G0463; 99201

== ENCOUNTER → 2019-11-16 13:21 | Outpatient (CLI) | payer MEDICARE, MEDICAID, SELFPAY ==
[2019-11-16 13:24] LABS: Microscopic, Urine URINE MICROSCOPIC (MICROSCOPIC)
[2019-11-16 14:00] LABS: Appearance,Urine CLEAR (Clear); Basophils # 0.1 K/mm3 (0-0.2); Basophils % 1.1 % (0.1-2.0); Bilirubin,Urine Negative (Negative); Blood, Urine TRACE-I (Negative); Color,Urine YELLOW (Yellow); Eosinophils # 0.4 K/mm3 (0.0-0.4); Eosinophils % 3.2 % (0.1-12.0); Glucose,Urine (UA) Negative (Negative); Hematocrit 38.9 % (37.0-47.0); Hemoglobin 12.6 g/dL (12.2-16.2); Ketones,Urine Negative (Negative); Leukocyte Esterase,Urine 1+ (Negative); Lymphocytes # 2.8 K/mm3 (0.7-4.5); Lymphocytes % 23.4 % (10-50); Mean Corpuscular HGB Conc 32.3 g/dL (31.8-35.4); Mean Corpuscular Hemoglobin 29.6 pg (27.0-31.2); Mean Corpuscular Volume 91.8 fl (81-99); Mean Platelet Volume 8.4 fl (7.4-10.4); Monocytes # 0.4 K/mm3 (0.1-1.0); Monocytes % 3.4 % (1.7-9.3); Neutrophils # 8.1 K/mm3 (1.8-7.8); Neutrophils % 68.9 % (37.0-80.0); Nitrate,Urine POSITIVE (Negative); Platelet Count 402 K/mm3 (142-424); Protein,Urine 1+ (Negative); Red Blood Count 4.24 M/mm3 (4.20-5.40); Red Cell Distribution Width 15.4 % (11.5-17.5); Specific Gravity, Urine 1.015 (1.005-1.030); Urobilinogen,Urine 0.2 EU/dl (0.2); White Blood Count 11.8 K/mm3 (4.8-10.8)
[2019-11-16 14:32] LABS: Creatinine,Urine Random 49 mg/dL (Not Estab.)
[2019-11-16 14:40] LABS: Albumin Level 4.2 g/dl (3.5-5.0); Anion Gap 14.3 mEq/L (5-15); Blood Urea Nitrogen 29 mg/dl (7-17); Calcium 9.9 mg/dl (8.4-10.2); Carbon Dioxide 23 mmol/L (22.0-30.0); Chloride 110 mmol/L (98-107); Estimated Glomerular Filt Rate 39 ml/min (>60); GFR (African American) 47 ML/MIN (>60); Glucose 158 mg/dl (74-100); Phosphorous 3.6 mg/dl (2.5-4.5); Potassium 4.3 mmoL/L (3.5-5.1); Sodium 143 mmol/L (136-145)
[2019-11-16 15:04] LABS: Bacteria,Urine Trace /lpf
== END ==
PROVIDERS: Visit Provider Internal Medicine Nephrology
DX: N18.30 Chronic kidney disease, stage 3 unspecified (principal); R82.90 Unspecified abnormal findings in urine
CPT/HCPCS: 36415; 80069; 81001; 82570; 84155; 85025; 87077; 87086; 87088

== ENCOUNTER → 2019-11-23 13:38 | Outpatient (POV) | payer MEDICARE, MEDICAID, SELFPAY | PROVIDERS: Visit Provider Internal Medicine Nephrology | DX: Z00.00 Encounter for general adult medical examination without abnormal findings (principal) ==

== ENCOUNTER → 2020-01-20 12:32 | Outpatient (CLI) | payer MEDICARE, MEDICAID, SELFPAY ==
--- NOTE | 2020-01-20 12:33 | CA_ITS ---
APPROVED REPORT Clammer: Dariela Kauffman RVT Laterality: Bilateral Study Quality: Fair Indications: bilateral carotid artery stenosis Risk Factors Hypertension: Hyperlipidemia Diabetes PAD Smoking Medications Plavix Aspirin Doppler Spectral Velocity Analysis ECA (R) 161.50/11.80 cm/s ECA (L) 157.20/16.00 cm/s dICA (R) 101.60/24.60 cm/s dICA (L) 118.40/19.50 cm/s Mariah (R) 135.80/32.10 cm/s Mariah (L) 136.50/11.10 cm/s pICA (R) 124.00/33.10 cm/s pICA (L) 186.60/19.50 cm/s dCCA (R) 98.40/23.50 cm/s dCCA (L) 105.50/11.20 cm/s pCCA (R) 104.80/19.20 cm/s pCCA (L) 87.30/12.80 cm/s Vert (R) 44.90/15.40 cm/s Vert (L) 44.90/15.00 cm/s ICA/CCA 1.38 ICA/CCA 1.77 Findings Study suggests less than 20% stenosis of the right internal cartoid artery unchanged from the 11/18/18 study. Study suggests 50-69% stenosis of the left internal cartoid artery unchanged from the 11/18/18 study. Antegrade flow seen bilateral vertebral arteries. Conclusion Study suggests less than 20% stenosis of the right internal cartoid artery unchanged from the 11/18/18 study. Study suggests 50-69% stenosis of the left internal cartoid artery unchanged from the 11/18/18 study. Antegrade flow seen bilateral vertebral arteries. Electronically signed by : Eulogio Lombardo MD 01/20/2020 18:11:52
--- NOTE | 2020-01-20 12:33 | CA_ITS ---
APPROVED REPORT EXAM: Comprehensive 2D, Doppler, and color-flow Echocardiogram Nurse Sane: Dariela Kauffman RVT Ht: 5 ft 1 in Wt: 173lbs BSA: 1.78 BP: 130/55 mmHg Indications: MVR,PRIOR TRICUPSID REPLACEMENT,MAZE PROCEDURE,CABG,PACER,CHF,SMOKER,PALPS,OBESITY,HTN,HLD,DM 2D Dimensions LVOT 1.72 cm (M/F) 1.5-2.5 M-Mode Dimensions RVDd 2.62 cm (0.9-2.6) LA Diam 4.44 cm (1.9-4.0) LVDd 5.35 cm (3.5-5.7) Ao Diam 2.42 cm (2.0-3.7) LVDs 3.99 cm (3.5-5.7) IVSd 1.52 cm (0.6-1.1) PWd 0.65 cm (0.6-1.1) EF (Teich) 49.70% FS 25.40% EDV (Teich) 138.30 mL ESV (Teich) 69.60 mL LV Diastology E Decel Time 267.00 (160-240 msec) E/A Ratio 1.4 MED E' 3.90 (< 7 cm/sec) E'/MED E' Ratio 36.51 (>14) LAT E' 5.50 (<10 cm/sec) E/LAT E' Ratio 25.89 (>14) Aortic Valve AO VTI 45.54 (18-25 cm) Mitral Valve MV E Max Damien. 142.00 (40-130 cm/s) MV A Velocity 100.00 (40-130 cm/s) E/A Ratio 1.42 MV Decel. Time 267.00 (160-240 ms) MV PHT 78.00 ms Pulmonary Valve PV Peak Velocity 103.00 (50-150 cm/s) Tricuspid Valve TR P. Velocity 267.00 cm/s RAP Estimate 10.00 mmHg RVSP 38.50 mmHg Left Ventricle Left atrium is mildly enlarged, left ventricle is normal size, mild concentric left ventricular hypertrophy, visually estimated ejection fraction 55% with no regional wall motion abnormality, diastolic parameters are inconclusive. Right Ventricle Right atrium and right ventricular normal size and contractility, there is pacemaker leads in the right ventricle. Aortic Valve Aortic valve is minimally thickened and fibrosed, there is no aortic stenosis or aortic insufficiency. Mitral Valve There is a bioprosthetic valve noted in the mitral position, the valve is well-seated, the mean gradient across prosthetic valve is 4.7 mmHg, valve area is 2.8 cm??? by pressure half-time, there is no mitral regurgitation. Tricuspid Valve There appears to be a tricuspid ring in tricuspid position, there is no significant increase in tricuspid inflow velocity, there is mild tricuspid regurgitation. Tricuspid regurgitation jet velocity is inadequate for calculation of the right ventricular systolic pressure. Pulmonic Valve Pulmonic valve is poorly visualized. Great Vessels Aortic root is normal size. Pericardium No significant pericardial effusion noted. Conclusion 1. Mildly enlarged left atrium, normal left ventricular size, mild concentric left ventricular hypertrophy, visually estimated ejection fraction 55% with no regional wall motion abnormality. Diastolic parameters are inconclusive. 2. Normal functioning bioprosthetic valve in the mitral position without significant mitral inflow obstruction or mitral regurgitation. 3. Normal functioning tricuspid valve ring. 4. No significant pericardial effusion noted. Electronically signed by : Nguyễn Knowles, 01/21/2020 16:03:06
== END ==
PROVIDERS: PCP Emergency Medicine; Visit Provider Nurse Practitioner Family
DX: I65.23 Occlusion and stenosis of bilateral carotid arteries (principal); R09.89 Other specified symptoms and signs involving the circulatory and respiratory systems; E11.8 Type 2 diabetes mellitus with unspecified complications; E66.9 Obesity, unspecified; I11.9 Hypertensive heart disease without heart failure; I25.10 Atherosclerotic heart disease of native coronary artery without angina pectoris; I73.9 Peripheral vascular disease, unspecified; Z72.0 Tobacco use; Z95.1 Presence of aortocoronary bypass graft; Z95.2 Presence of prosthetic heart valve; Z95.810 Presence of automatic (implantable) cardiac defibrillator; Z98.890 Other specified postprocedural states; Z79.4 Long term (current) use of insulin
CPT/HCPCS: 93306; 93880

== ENCOUNTER 2020-03-10 14:05 | Emergency (ER) | payer MEDICARE, MEDICAID, SELFPAY ==
[2020-03-10 14:06] VITALS: BP 149/61; PULSE 73; RESP 18; TEMP 36.6; O2SAT 98; BMI 32.1
[2020-03-10 14:37] LABS: Basophils # 0.1 K/mm3 (0-0.2); Basophils % 0.3 % (0.1-2.0); Eosinophils # 0.2 K/mm3 (0.0-0.4); Eosinophils % 0.9 % (0.1-12.0); Hematocrit 44.5 % (37.0-47.0); Hemoglobin 14.3 g/dL (12.2-16.2); Lymphocytes # 0.9 K/mm3 (0.7-4.5); Lymphocytes % 4.6 % (10-50); Mean Corpuscular HGB Conc 32.2 g/dL (31.8-35.4); Mean Corpuscular Hemoglobin 28.6 pg (27.0-31.2); Mean Corpuscular Volume 88.8 fl (81-99); Mean Platelet Volume 8.3 fl (7.4-10.4); Monocytes # 0.3 K/mm3 (0.1-1.0); Monocytes % 1.7 % (1.7-9.3); Neutrophils # 17.5 K/mm3 (1.8-7.8); Neutrophils % 92.5 % (37.0-80.0); Platelet Count 382 K/mm3 (142-424); Red Blood Count 5.01 M/mm3 (4.20-5.40); Red Cell Distribution Width 15.7 % (11.5-17.5); White Blood Count 18.9 K/mm3 (4.8-10.8)
[2020-03-10 14:39] LABS: MANUAL DIFFERENTIAL MANUAL DIFFERENTIAL (MANUAL DIFF)
[2020-03-10 14:43] LABS: Chloride 104 mmol/L (98-107); Potassium 4.6 mmoL/L (3.5-5.1); Sodium 140 mmol/L (136-145)
[2020-03-10 14:45] LABS: Alanine Aminotransferase 19 U/L (12-78); Anion Gap 19.6 mEq/L (5-15); Aspartate Amino Transferase 23 U/L (14-36); Blood Urea Nitrogen 44 mg/dl (7-17); Carbon Dioxide 21 mmol/L (22.0-30.0); Creatinine Clearance Estimated 44 mL/min (50-200); Estimated Glomerular Filt Rate 31 ml/min (>60); GFR (African American) 37 ML/MIN (>60)
[2020-03-10 14:46] LABS: Albumin Level 5.1 g/dl (3.5-5.0); Albumin/Globulin Ratio 1.3 (1.1-1.8); Alkaline Phosphatase 154 U/L (38-126); Bilirubin,Total 0.5 mg/dl (0.2-1.3); Calcium 10.2 mg/dl (8.4-10.2); Glucose 324 mg/dl (74-100); Total Protein,Serum 9.1 g/dl (6.3-8.2)
--- NOTE | 2020-03-10 14:46 | HMH.EDGENADL ---
ED Disposition Clinical Impression: Pancreatic mass, Right kidney mass Vomiting Qualifiers: Vomiting type: unspecified Vomiting Intractability: non-intractable Nausea presence: with nausea Qualified Code(s): R11.2 - Nausea with vomiting, unspecified Hematuria Qualifiers: Hematuria type: unspecified type Qualified Code(s): R31.9 - Hematuria, unspecified UTI (urinary tract infection) Qualifiers: Urinary tract infection type: site unspecified Hematuria presence: with hematuria Qualified Code(s): N39.0 - Urinary tract infection, site not specified; R31.9 - Hematuria, unspecified Disposition: Home, Self-Care Condition on Discharge: Good Additional Instructions: Phenergan as needed for nausea or vomiting. See Dr. Glez/Dr. Davis in their office tomorrow. Return to the emergency department if vomiting returns. Additional instructions for URINARY TRACT INFECTION: Take antibiotic as prescribed. See your physician in 2-3 days for follow up and culture results. Return immediately if you have an uncontrollable fever greater than 102 degrees, severe back or abdominal pain, inability to urinate, or repetitive vomiting. Prescriptions: Cefdinir [Omnicef 300mg Capsule] 300 mg PO BID #20 cap Transmission Status: Pending to [facility] Referrals: Cosme Davis MD [Primary Care Provider] - - Critical Care Critical Care Time: No Attestation: On 03/10/20, the high probability of a clinically significant, sudden or life threatening deterioration of the following system(s) required my full and direct attention, intervention and personal management. The time I documented below is in addition to time spent performing reported procedures but includes the following listed in this critical care notation. Medical Decision Making - Amador Inquiry Pt receiving controlled substance: No Vital Signs: 03/10/20 14:06 Temperature 98 F Temperature Source Oral Pulse Rate [Radial] 73 Respiratory Rate 18 Blood Pressure [Right Arm] 149/61 H Blood Pressure Mean [Right Arm] 90 Blood Pressure Position [Right Arm] Sitting 02 Sat by Pulse Oximetry 98 Oxygen Delivery Method Room Air - Lab Data Lab Results 03/10/20 14:30: WBC 18.9 H, RBC 5.01, Hgb 14.3, Hct 44.5, MCV 88.8, MCH 28.6, MCHC 32.2, RDW 15.7, Plt Count 382, MPV 8.3, Neut % (Auto) 92.5 H, Lymph % (Auto) 4.6 L, Hardin % (Auto) 1.7, Eos % (Auto) 0.9, Baso % (Auto) 0.3, Neut # (Auto) 17.5 H, Lymph # (Auto) 0.9, Hardin # (Auto) 0.3, Eos # (Auto) 0.2, Baso # (Auto) 0.1, Total Counted 100, Neutrophils % (Manual) 87 H, Lymphocytes % (Manual) 9 L, Monocytes % (Manual) 4, Platelet Estimate Normal, RBC Morphology Normal 03/10/20 14:30: Sodium 140, Potassium 4.6, Chloride 104, Carbon Dioxide 21 L, Anion Gap 19.6 H, BUN 44 H, Creatinine 1.70 H, Estimated Creat Clear 44, Estimated GFR 31 L, Est GFR ( Amer) 37 L, Glucose 324 H, Calcium 10.2, Total Bilirubin 0.5, AST 23, ALT 19, Alkaline Phosphatase 154 H, Total Protein 9.1 H D, Albumin 5.1 H, Globulin 4.0 H, Albumin/Globulin Ratio 1.3 03/10/20 14:30: Troponin I < 0.01 03/10/20 15:13: Urine Color Ronda, Urine Appearance Turbid, Urine pH 7.0, Ur Specific Norwood 1.025, Urine Protein 3+, Urine Glucose (UA) Negative, Urine Ketones Negative, Urine Blood 3+, Urine Nitrate Negative, Urine Bilirubin Negative, Urine Urobilinogen 0.2, Ur Leukocyte Esterase 2+ A, Urine RBC Tntc Result diagrams: 03/10/20 14:30 03/10/20 14:30 Orders (Tests/Meds): ED MEDICATIONS Generic Name Dose Route Start Last Admin Trade Name Freq PRN Reason Stop Dose Admin Ceftriaxone Sodium 1 gm/ 50 mls @ 100 mls/hr 03/10/20 17:45 Sodium Chloride IV 03/24/20 17:44 Q24H BIJAN Protocol Discontinued Medications Generic Name Dose Route Start Last Admin Trade Name Freq PRN Reason Stop Dose Admin Sodium Chloride 1,000 mls @ 999 mls/hr 03/10/20 14:45 03/10/20 14:36 Sod Chlor 0.9% 1000ml Bag IV 03/10/20 15:45 999 mls/hr
[2020-03-10 14:50] LABS: Lymphocytes % 9 % (10-50); Monocytes % 4 % (2-9); Neutrophils % 87 % (42-76); Platelet Estimate Normal; RBC Morphology Normal; Total Cells Counted 100
[2020-03-10 15:19] LABS: Microscopic, Urine URINE MICROSCOPIC (MICROSCOPIC)
[2020-03-10 15:25] LABS: Appearance,Urine TURBID (Clear); Bilirubin,Urine Negative (Negative); Blood, Urine 3+ (Negative); Color,Urine AMBER (Yellow); Glucose,Urine (UA) Negative (Negative); Ketones,Urine Negative (Negative); Leukocyte Esterase,Urine 2+ (Negative); Nitrate,Urine Negative (Negative); Protein,Urine 3+ (Negative); Specific Gravity, Urine 1.025 (1.005-1.030); Urobilinogen,Urine 0.2 EU/dl (0.2)
--- NOTE | 2020-03-10 15:25 | ECG_ITS ---
APPROVED REPORT Exam: Resting ECG HR:61 bpm ECG Measurements Heart Rate 61 AXES NE 130 P 97 QRSd 156 QRS 230 QT 488 T 62 QTc 491 Conclusion AV sequential or dual chamber electronic pacemaker Electronically signed by : Jacob Powell, 03/11/2020 18:47:26
[2020-03-10 15:30] LABS: RBC,Urine TNTC #/hpf (0-3)
--- NOTE | 2020-03-10 15:30 | CT_ITS ---
PROCEDURE: CT ABDOMEN PELVIS WO CON CLINICAL INDICATION: vomiting possible sbo COMPARISON: CT CT ABDOMEN PELVIS WO CON from 10/27/2019 TECHNIQUE: Axial images obtained with sagittal and coronal reformats. All CT scans at the facility use one or more dose reduction, viz: automated exposure control, ma/kV adjustment per patient size (including targeted exams where dose is matched to indication, i.e. head), or iterative reconstruction technique. FINDINGS: LOWER THORAX: No acute finding ABDOMEN & PELVIS: Liver has a somewhat nodular contour. Multiple splenic granulomas are present also with a nodular contour of the spleen. 14 mm hypodense nodule of the right adrenal gland and may be due to an adenoma. There is a lobular hypodense mass in the head of the pancreas measuring 2.6 by 1.7 cm not significantly changed and incompletely evaluated without IV contrast. Exophytic isodense the projects off of the upper pole of the right kidney posteriorly at 1.9 cm indeterminate. No renal or ureteral calculi. There has been a prior bilateral aortoiliac graft placement. No intestinal obstruction or free air. There has been a prior cystectomy. Prior hysterectomy. There is a large right para ventral abdominal wall hernia. An ileo loop is present with right lower quadrant ileostomy. The large right lower quadrant abdominal wall hernia contains large and small bowel. There is no evidence of bowel obstruction. Suture line/anastomosis noted within the small bowel within the hernia. No evidence of appendicitis. There are mild degenerative changes of the lumbar spine. Mild lumbar curvature convex right. IMPRESSION: 1. No evidence of small-bowel obstruction. 2. Enlarged right adrenal gland which may be due to adenoma. 3. Lobular contour of the left lobe of the liver which may be seen with cirrhosis. 4. No change pancreatic mass. Follow-up recommended with pancreatic protocol either MRI or CT 5. 19 mm right renal lesion indeterminate. Follow-up suggested with renal ultrasound. 6. Large right para ventral abdominal wall hernia containing large and small bowel without evidence of obstruction. 7. Prior cystectomy with right lower quadrant ileostomy/ileal loop Dictated by: Eulogio Lombardo MD 03/10/2020 17:09 Eluogio Lombardo MD in [place] 03/10/2020 17:09
[2020-03-10 15:47] LABS: Troponin I < 0.01 ng/ml (0.00-0.034)
[2020-03-10 17:57] VITALS: BP 133/68; PULSE 80; RESP 20; TEMP 36.7; O2SAT 100
== END 2020-03-10 18:00 | disposition home or self-care (01) ==
PROVIDERS: Emergency Provider Emergency Medicine; PCP Emergency Medicine
DX: K86.89 Other specified diseases of pancreas (principal); N28.89 Other specified disorders of kidney and ureter; N30.00 Acute cystitis without hematuria; E11.65 Type 2 diabetes mellitus with hyperglycemia; F41.8 Other specified anxiety disorders; E78.5 Hyperlipidemia, unspecified; I10 Essential (primary) hypertension; I25.2 Old myocardial infarction; E03.9 Hypothyroidism, unspecified; F17.210 Nicotine dependence, cigarettes, uncomplicated; F12.10 Cannabis abuse, uncomplicated; Z85.51 Personal history of malignant neoplasm of bladder; Z79.899 Other long term (current) drug therapy
CPT/HCPCS: 74176; 80053; 81001; 84484; 85007; 85025; 87086; 87088; 87186; 93005; 96365; 96375; 99283; J2405

== ENCOUNTER → 2020-04-06 14:08 | Outpatient (CLI) | payer MEDICARE, MEDICAID, SELFPAY ==
[2020-04-07 10:00] LABS: Basophils # 0.1 K/mm3 (0-0.2); Eosinophils # 0.3 K/mm3 (0.0-0.4); Eosinophils % 2.6 % (0.1-12.0); Hematocrit 43.9 % (37.0-47.0); Hemoglobin 13.2 g/dL (12.2-16.2); Lymphocytes # 2.6 K/mm3 (0.7-4.5); Mean Corpuscular Hemoglobin 28.4 pg (27.0-31.2); Mean Corpuscular Volume 94.8 fl (81-99); Mean Platelet Volume 10.8 fl (7.4-10.4); Monocytes # 0.6 K/mm3 (0.1-1.0); Monocytes % 4.8 % (1.7-9.3); Neutrophils # 9.2 K/mm3 (1.8-7.8); Neutrophils % 71.7 % (37.0-80.0); Platelet Count 345 K/mm3 (142-424); Red Blood Count 4.62 M/mm3 (4.20-5.40); Red Cell Distribution Width 15.8 % (11.5-17.5); White Blood Count 12.8 K/mm3 (4.8-10.8)
[2020-04-07 10:03] LABS: Chloride 106 mmol/L (98-107)
[2020-04-07 10:04] LABS: Potassium 4.7 mmoL/L (3.5-5.1); Sodium 142 mmol/L (136-145)
[2020-04-07 10:05] LABS: Creatinine,Urine Random 75 mg/dL (Not Estab.)
[2020-04-07 10:06] LABS: Alanine Aminotransferase 17 U/L (12-78); Albumin Level 4.5 g/dl (3.5-5.0); Albumin/Globulin Ratio 1.3 (1.1-1.8); Alkaline Phosphatase 147 U/L (38-126); Anion Gap 16.7 mEq/L (5-15); Aspartate Amino Transferase 22 U/L (14-36); Bilirubin,Total 0.5 mg/dl (0.2-1.3); Blood Urea Nitrogen 45 mg/dl (7-17); Carbon Dioxide 24 mmol/L (22.0-30.0); Estimated Glomerular Filt Rate 33 ml/min (>60); GFR (African American) 40 ML/MIN (>60); Globulin 3.4 g/dL (1.3-3.2); Total Protein,Serum 7.9 g/dl (6.3-8.2)
[2020-04-07 10:07] LABS: Amphetamine/Metha Screen,Urine Negative ng/ml (<1000); Benzodiazepines Screen,Urine Positive ng/ml (<200); Chol/HDL Ratio 5.9 (1-3.5); Cholesterol 189 mg/dl (140-200); Glucose 271 mg/dl (74-100); HDL Cholesterol 32 mg/dl (40-60)
[2020-04-07 10:08] LABS: Barbiturates Screen,Urine Negative ng/ml (<200); Triglycerides 459 mg/dl (30-150)
[2020-04-07 10:09] LABS: Cannabinoid Screen,Urine Positive ng/ml (<50)
[2020-04-07 10:10] LABS: Cocaine Screen,Urine Negative ng/ml (<300)
[2020-04-07 10:11] LABS: Methadone Screen,Urine Negative ng/ml (<300)
[2020-04-07 10:12] LABS: Phencyclidine Screen,Urine Negative ng/ml (<25)
[2020-04-07 10:13] LABS: Opiate Screen,Urine Negative ng/ml (<300)
[2020-04-07 10:19] LABS: Hemoglobin A1C 7.2 % (4.0-6.0)
[2020-04-07 10:21] LABS: Direct LDL Cholesterol 106.55 mg/dL (100-129)
[2020-04-07 10:25] LABS: Free T4 (Free Thyroxine) 1.18 ng/dl (0.78-2.19)
[2020-04-07 10:36] LABS: 25-OH Vitamin D, Total 26.6 ng/mL (30-100)
[2020-04-07 10:39] LABS: Thyroid Stimulating Hormone 3.59 uIU/mL (0.465-4.68)
== END ==
PROVIDERS: Visit Provider Emergency Medicine
DX: E11.9 Type 2 diabetes mellitus without complications; E55.9 Vitamin D deficiency, unspecified; Z79.899 Other long term (current) drug therapy; Z79.4 Long term (current) use of insulin
CPT/HCPCS: 80053; 80061; 80305; 82043; 82306; 82570; 83036; 84439; 84443; 85025

== ENCOUNTER → 2020-05-12 15:14 | Outpatient (POV) | payer MEDICARE, MEDICAID, SELFPAY | PROVIDERS: Visit Provider Internal Medicine Nephrology | DX: Z00.00 Encounter for general adult medical examination without abnormal findings (principal) ==

== ENCOUNTER → 2020-07-06 14:13 | Outpatient (CLI) | payer MEDICARE, MEDICAID, SELFPAY ==
[2020-07-06 15:16] LABS: Amphetamine/Metha Screen,Urine Negative ng/ml (<1000)
[2020-07-06 15:18] LABS: Barbiturates Screen,Urine Negative ng/ml (<200)
[2020-07-06 15:19] LABS: Cannabinoid Screen,Urine Positive ng/ml (<50)
[2020-07-06 15:20] LABS: Methadone Screen,Urine Negative ng/ml (<300)
[2020-07-06 15:21] LABS: Opiate Screen,Urine Negative ng/ml (<300)
[2020-07-06 15:25] LABS: Phencyclidine Screen,Urine Negative ng/ml (<25)
[2020-07-06 15:33] LABS: Cocaine Screen,Urine Negative ng/ml (<300)
[2020-07-06 21:45] LABS: Benzodiazepines Screen,Urine Positive ng/ml (<200)
== END ==
PROVIDERS: Visit Provider Emergency Medicine
DX: Z79.899 Other long term (current) drug therapy (principal)
CPT/HCPCS: 80305

== ENCOUNTER 2020-08-23 19:32 | Emergency (ER) | payer MEDICARE, MEDICAID, SELFPAY ==
[2020-08-23 20:37] VITALS: BP 146/88; PULSE 88; RESP 17; TEMP 36.8; O2SAT 98; BMI 73.6
--- NOTE | 2020-08-23 20:43 | XR_ITS ---
PROCEDURE INFORMATION: Exam: XR Right Hand Exam date and time: 08/23/2020 8:43 PM Age: 60 years old Clinical indication: Pain; Hand; Patient HX: Right thumb locked up, no injury. TECHNIQUE: Imaging protocol: XR Right hand. Views: 3 or more views. COMPARISON: No relevant prior studies available. FINDINGS: Bones/joints: Diffuse osteopenia. No fracture or dislocation. Mild arthritic changes most pronounced at the 1st MCP joint and interphalangeal joints. Soft tissues: Normal. IMPRESSION: Mild arthritic changes most pronounced at the 1st MCP and interphalangeal joints.
--- NOTE | 2020-08-23 21:14 | HMH.EDUTC ---
[facility] [place] Disposition Clinical Impression: Tenosynovitis of thumb Disposition: Home, Self-Care Condition on Discharge: Good Instructions: DI for De Quervain's Tenosynovitis Additional Instructions: Rest the extremity, Elevate the extremity as tolerated while you are resting, Follow up with Dr. Shannon (orthopedics). I put in a referral but you need to call his office and schedule an appointment to have your hand and thumb checked. I put in a referral to podiatry (Dr. Soares) for your foot pain since you are a diabetic. Please call Dr. Soares's office and make an appointment for your foot pain, Follow up with your regular doctor. GO TO THE ER FOR ANY WORSENING SYMPTOMS Get the prescribed thumb spica splint and start wearing it. Resting your thumb and not further irritating it will help it somewhat Referrals: Cosme Davis MD [Primary Care Provider] - Ayo Shannon MD [Staff Physician] - Thalia Soares DPM [Staff Physician] - Time of Disposition: 21:26 Medical Decision Making - Medical Records Medical records reviewed: No: I reviewed the patient's medical records. - Amador Inquiry Pt receiving controlled substance: No Vital Signs: 08/23/20 20:37 08/23/20 21:32 Temperature 98.2 F 98 F Temperature Source Oral Pulse Rate 88 Pulse Rate [Left] 88 Respiratory Rate 17 14 Blood Pressure 146/88 H Blood Pressure [Right Arm] 146/88 H Blood Pressure Mean [Right Arm] 107 Blood Pressure Source [Right Arm] Automatic Cuff 02 Sat by Pulse Oximetry 98 - Radiology Data #1 Image(s): Hand Image Reviewed: Yes I reviewed the patient's radiology image, Yes I have reviewed radiologist's interpretation Preliminary Findings: Normal/NAD, No Fracture Seen PROCEDURE INFORMATION: Exam: XR Right Hand Exam date and time: 08/23/2020 8:43 PM Age: 60 years old Clinical indication: Pain; Hand; Patient HX: Right thumb locked up, no injury. TECHNIQUE: Imaging protocol: XR Right hand. Views: 3 or more views. COMPARISON: No relevant prior studies available. FINDINGS: Bones/joints: Diffuse osteopenia. No fracture or dislocation. Mild arthritic changes most pronounced at the 1st MCP joint and interphalangeal joints. Soft tissues: Normal. IMPRESSION: Mild arthritic changes most pronounced at the 1st MCP and interphalangeal joints. [facility] [place] HPI - General Stated complaint: Rt thumb locked Time Seen by Provider: 08/23/20 20:45 Mode of Arrival: Ambulatory Source of Information: Patient Limitations: No Limitations Description of Symptoms (Recalled from Triage Doc. by RN): pt jammed her R thumb about a month ago and is still having pain and difficulty bending it. HEENT Symptoms (Recalled from RN notes): No Resp Symptoms (Recalled from RN notes): No Skin Symptoms (Recalled from RN notes): No MS Symptoms (Recalled from RN notes): Yes (R thumb pain and difficutly bending) Functional Status (Recalled from RN notes): na - History of Present Illness Provider Complaint: She states that for the past month she has had right thumb pain. It sometimes catches when she bends it and she has to manually straignten it out with her other hand. - Related Data Home Medications Medication Instructions Recorded Confirmed Clopidogrel Bisulfate [Plavix] 75 mg PO DAILY 10/30/19 08/08/20 Pravastatin Sodium [Pravachol] 20 mg PO DAILY 10/30/19 08/08/20 diltiazem HCl 60 mg 60 mg PO DAILY cap 01/13/20 08/08/20 capsule,extended release 12 hr Previous Rx's Medication Instructions Recorded Ibuprofen [Ibuprofen 600mg 600 mg PO Q6HP PRN #30 tab 11/06/19 Tablet] blood sugar diagnostic See Rx Instructions .ROUTE 01/27/20 .MEDSUPPLY #100 each insulin syringe-needle U-100 0.5 See Rx Instructions .ROUTE 01/27/20 mL 30 gauge x 06/26 .MEDSUPPLY #100 each citalopram 10 mg tablet 10 mg PO DAILY #90 tab 04/08/20 atorvastatin 4
[2020-08-23 21:32] VITALS: BP 146/88; PULSE 88; RESP 14; TEMP 36.6
== END 2020-08-23 21:35 | disposition home or self-care (01) ==
PROVIDERS: Emergency Provider Nurse Practitioner Family; PCP Emergency Medicine
DX: M67.34 Transient synovitis, hand (principal); E03.9 Hypothyroidism, unspecified; I25.2 Old myocardial infarction; F41.8 Other specified anxiety disorders; I50.9 Heart failure, unspecified; I25.10 Atherosclerotic heart disease of native coronary artery without angina pectoris; E11.9 Type 2 diabetes mellitus without complications; E78.5 Hyperlipidemia, unspecified; I10 Essential (primary) hypertension; Z95.0 Presence of cardiac pacemaker; F17.210 Nicotine dependence, cigarettes, uncomplicated; F12.10 Cannabis abuse, uncomplicated
CPT/HCPCS: G0463; 73130; 99202

== ENCOUNTER → 2020-09-28 13:49 | Outpatient (CLI) | payer MEDICARE, MEDICAID, SELFPAY ==
[2020-09-28 14:12] LABS: Alanine Aminotransferase 15 U/L (12-78); Albumin Level 4.5 g/dl (3.5-5.0); Albumin/Globulin Ratio 1.5 (1.1-1.8); Alkaline Phosphatase 123 U/L (38-126); Anion Gap 15.8 mEq/L (5-15); Aspartate Amino Transferase 24 U/L (14-36); Bilirubin,Total 0.6 mg/dl (0.2-1.3); Blood Urea Nitrogen 27 mg/dl (7-17); Calcium 9.4 mg/dl (8.4-10.2); Carbon Dioxide 23 mmol/L (22.0-30.0); Chloride 106 mmol/L (98-107); Chol/HDL Ratio 5.5 (1-3.5); Cholesterol 186 mg/dl (140-200); Estimated Glomerular Filt Rate 42 ml/min (>60); GFR (African American) 51 ML/MIN (>60); Glucose 154 mg/dl (74-100); HDL Cholesterol 34 mg/dl (40-60); Potassium 4.8 mmoL/L (3.5-5.1); Sodium 140 mmol/L (136-145); Total Protein,Serum 7.5 g/dl (6.3-8.2); Triglycerides 191 mg/dl (30-150); VLDL Cholesterol 38 mg/dL (0-40)
[2020-09-28 14:23] LABS: Direct LDL Cholesterol 115.25 mg/dL (100-129)
[2020-09-28 14:30] LABS: Free T4 (Free Thyroxine) 1.41 ng/dl (0.78-2.19)
[2020-09-28 14:43] LABS: Thyroid Stimulating Hormone 4.17 uIU/mL (0.465-4.68)
[2020-09-28 14:53] LABS: Basophils # 0.1 K/mm3 (0-0.2); Basophils % 0.6 % (0.1-2.0); Eosinophils # 0.3 K/mm3 (0.0-0.4); Hematocrit 38.9 % (37.0-47.0); Hemoglobin 12.8 g/dL (12.2-16.2); Lymphocytes # 2.1 K/mm3 (0.7-4.5); Lymphocytes % 19.4 % (10-50); Mean Corpuscular HGB Conc 32.8 g/dL (31.8-35.4); Mean Corpuscular Hemoglobin 28.5 pg (27.0-31.2); Mean Corpuscular Volume 86.7 fl (81-99); Mean Platelet Volume 8.6 fl (7.4-10.4); Monocytes # 0.5 K/mm3 (0.1-1.0); Monocytes % 4.1 % (1.7-9.3); Neutrophils % 72.9 % (37.0-80.0); Platelet Count 322 K/mm3 (142-424); Red Blood Count 4.49 M/mm3 (4.20-5.40); Red Cell Distribution Width 15.9 % (11.5-17.5); White Blood Count 10.9 K/mm3 (4.8-10.8)
[2020-09-28 16:02] LABS: Hemoglobin A1C 7.7 % (4.0-6.0)
[2020-09-28 16:13] LABS: Creatinine,Urine Random 76 mg/dL (Not Estab.)
[2020-09-28 16:28] LABS: Microalbumin/Creatinine Ratio 2115.2
== END ==
PROVIDERS: Visit Provider Emergency Medicine
DX: E13.9 Other specified diabetes mellitus without complications (principal); E55.9 Vitamin D deficiency, unspecified; Z79.4 Long term (current) use of insulin
CPT/HCPCS: 80053; 80061; 82043; 82306; 82570; 83036; 84439; 84443; 85025

== ENCOUNTER → 2020-12-15 11:31 | Outpatient (CLI) | payer MEDICARE, MEDICAID, SELFPAY ==
[2020-12-15 11:37] LABS: Microscopic, Urine URINE MICROSCOPIC (MICROSCOPIC)
[2020-12-15 12:23] LABS: Basophils # 0.1 K/mm3 (0-0.2); Eosinophils # 0.3 K/mm3 (0.0-0.4); Hematocrit 42.8 % (37.0-47.0); Hemoglobin 12.9 g/dL (12.2-16.2); Lymphocytes # 2.1 K/mm3 (0.7-4.5); Lymphocytes % 21.4 % (10-50); Mean Corpuscular Hemoglobin 28.2 pg (27.0-31.2); Mean Corpuscular Volume 93.9 fl (81-99); Monocytes # 0.5 K/mm3 (0.1-1.0); Monocytes % 4.6 % (1.7-9.3); Neutrophils # 6.8 K/mm3 (1.8-7.8); Neutrophils % 69.9 % (37.0-80.0); Platelet Count 416 K/mm3 (142-424); Red Blood Count 4.56 M/mm3 (4.20-5.40); Red Cell Distribution Width 15.4 % (11.5-17.5); White Blood Count 9.8 K/mm3 (4.8-10.8)
[2020-12-15 12:41] LABS: Chloride 103 mmol/L (98-107); Potassium 4.4 mmoL/L (3.5-5.1); Sodium 138 mmol/L (136-145)
[2020-12-15 12:42] LABS: Albumin Level 4.4 g/dl (3.5-5.0)
[2020-12-15 12:44] LABS: Anion Gap 20.4 mEq/L (5-15); Blood Urea Nitrogen 32 mg/dl (7-17); Carbon Dioxide 19 mmol/L (22.0-30.0); Estimated Glomerular Filt Rate 46 ml/min (>60); GFR (African American) 56 ML/MIN (>60)
[2020-12-15 12:45] LABS: Calcium 9.6 mg/dl (8.4-10.2); Phosphorous 3.9 mg/dl (2.5-4.5)
[2020-12-15 13:11] LABS: Appearance,Urine CLEAR (Clear); Bilirubin,Urine Negative (Negative); Blood, Urine 1+ (Negative); Color,Urine YELLOW (Yellow); Glucose,Urine (UA) 3+ (Negative); Ketones,Urine Negative (Negative); Leukocyte Esterase,Urine TRACE (Negative); Nitrate,Urine Negative (Negative); Protein,Urine 2+ (Negative); Urobilinogen,Urine 0.2 EU/dl (0.2)
[2020-12-15 13:34] LABS: Bacteria,Urine 1+ /lpf; WBC,Urine Occasional #/hpf (0-3)
[2020-12-15 13:37] LABS: Creatinine,Urine Random 45 mg/dL (Not Estab.)
[2020-12-15 22:51] LABS: Glucose 448 mg/dl (74-100)
== END ==
PROVIDERS: Visit Provider Internal Medicine Nephrology
DX: N18.30 Chronic kidney disease, stage 3 unspecified (principal)
CPT/HCPCS: 36415; 80069; 81001; 82570; 84155; 85025

== ENCOUNTER → 2020-12-19 13:48 | Outpatient (POV) | payer MEDICARE, MEDICAID, SELFPAY | PROVIDERS: Visit Provider Internal Medicine Nephrology | DX: Z00.00 Encounter for general adult medical examination without abnormal findings (principal) ==

== ENCOUNTER → 2021-01-16 14:56 | Outpatient (CLI) | payer MEDICARE, MEDICAID, SELFPAY ==
--- NOTE | 2021-01-16 15:07 | US_ITS ---
APPROVED REPORT Exam Type: Ankle to Brachial Index Loan Secretary: RT Windy(R) Indications Claudication: Bilaterally Rest Pain: Bilaterally PAD Cyanosis Current Smoker History of Smoking Pressures/Indices Right Indices Left Indices Brachial 121.00 mmHg Brachial 133.00 mmHg Low Thigh 71.00 mmHg 0.53 Low Thigh 75.00 mmHg 0.56 Calf 66.00 mmHg 0.50 Calf 72.00 mmHg 0.54 Ankle(PT) 69.00 mmHg 0.52 Ankle(PT) 78.00 mmHg 0.59 Ankle(DP) 53.00 mmHg 0.40 Ankle(DP) 74.00 mmHg 0.56 Digit 34.00 mmHg 0.26 Digit 50.00 mmHg 0.38 Findings Right GOMEZ consistent with severe arterial insufficiency.Right first digit pressure below normal limits. Left GOMEZ consistent with moderate arterial insufficiency.Left first digit pressure below normal limits. Diminished pulses bilaterally but most noticeable in the right leg. Diminisheed waveforms distally. Abnormal exam worsening from previous exam. Conclusion Right GOMEZ consistent with severe arterial insufficiency.Right first digit pressure below normal limits. Left GOMEZ consistent with moderate arterial insufficiency.Left first digit pressure below normal limits. Diminished pulses bilaterally but most noticeable in the right leg. Diminisheed waveforms distally. Abnormal exam worsening from previous exam. Critical Notification Critical Value: Yes Physician Notified Date: 01/16/2021 Time: 16:13 Physician Name: Ryan Electronically signed by : Eulogio Lombardo MD 01/16/2021 16:46:05
== END ==
PROVIDERS: PCP Emergency Medicine; Visit Provider Emergency Medicine
DX: I73.9 Peripheral vascular disease, unspecified (principal)
CPT/HCPCS: 93923

== ENCOUNTER → 2021-01-23 15:19 | Outpatient (CLI) | payer MEDICARE, MEDICAID, SELFPAY ==
[2021-01-23 16:16] LABS: Basophils # 0.1 K/mm3 (0-0.2); Basophils % 0.8 % (0.1-2.0); Eosinophils # 0.3 K/mm3 (0.0-0.4); Eosinophils % 2.2 % (0.1-12.0); Hematocrit 40.5 % (37.0-47.0); Hemoglobin 12.6 g/dL (12.2-16.2); Lymphocytes % 14.6 % (10-50); Mean Corpuscular Hemoglobin 28.3 pg (27.0-31.2); Mean Corpuscular Volume 91.2 fl (81-99); Mean Platelet Volume 8.4 fl (7.4-10.4); Monocytes # 0.4 K/mm3 (0.1-1.0); Monocytes % 3.3 % (1.7-9.3); Neutrophils # 10.6 K/mm3 (1.8-7.8); Neutrophils % 79.1 % (37.0-80.0); Platelet Count 407 K/mm3 (142-424); Red Blood Count 4.44 M/mm3 (4.20-5.40); Red Cell Distribution Width 15.7 % (11.5-17.5); White Blood Count 13.4 K/mm3 (4.8-10.8)
[2021-01-23 16:31] LABS: Anion Gap 17.1 mEq/L (5-15); Blood Urea Nitrogen 37 mg/dl (7-17); Carbon Dioxide 22 mmol/L (22.0-30.0); Chloride 101 mmol/L (98-107); Estimated Glomerular Filt Rate 36 ml/min (>60); Potassium 5.1 mmoL/L (3.5-5.1); Sodium 135 mmol/L (136-145)
[2021-01-23 16:32] LABS: Calcium 9.6 mg/dl (8.4-10.2); GFR (African American) 43 ML/MIN (>60); Glucose 374 mg/dl (74-100)
== END ==
PROVIDERS: Visit Provider Physician Assistant
DX: E78.5 Hyperlipidemia, unspecified (principal); I11.9 Hypertensive heart disease without heart failure; I25.10 Atherosclerotic heart disease of native coronary artery without angina pectoris; I33.0 Acute and subacute infective endocarditis; I65.29 Occlusion and stenosis of unspecified carotid artery; I73.9 Peripheral vascular disease, unspecified; Z95.1 Presence of aortocoronary bypass graft; Z95.2 Presence of prosthetic heart valve; Z95.810 Presence of automatic (implantable) cardiac defibrillator; Z01.812 Encounter for preprocedural laboratory examination; Z11.52 Encounter for screening for COVID-19
CPT/HCPCS: 36415; 80048; 85025; C9803; U0003; U0005

== ENCOUNTER 2021-01-24 07:32 | Day surgery (SDC) | payer MEDICARE, MEDICAID, SELFPAY ==
[2021-01-24] VITALS (18 sets, daily range): BP systolic 118–148; BP diastolic 56–74; PULSE 70–77; RESP 16–20; O2SAT 95–100; BMI 33.2
--- NOTE | 2021-01-24 07:20 | IR_ITS ---
APPROVED REPORT Patient Location: Outpatient Instructor Industrial Design: JEREMY Keane RT (R) PROCEDURES Catheter placement in the abdominal aorta Abdominal aortography Repositioning of the catheter in the abdominal aorta Bilateral iliofemoral INDICATION Known peripheral artery disease, Mary Beth claudication class III, Abnormal GOMEZ Informed consent was obtained prior to the procedure. COMPLICATIONS NONE Estimated Blood Loss: LESS THAN 10 ML TECHNIQUE 1% lidocaine used to excise right groin the right femoral artery was accessed via the Salinger technique and a 5 Somali sheath was placed in the right femoral artery. A pigtail catheter was advanced into the abdominal aorta and abdominal aortography was performed. The catheter was then repositioned and bilateral iliofemoral runoff was performed. At the end of the procedure the patient was transferred to the postop holding area in stable condition for sheath removal ANGIOGRAPHIC RESULTS Bilateral renal arteries are patent Abdominal aorta is patent and has bifurcating stents extending into the bilateral common iliac arteries thereby reconstructing the abdominal aorta. There is excellent inline flow into the bilateral common widely patent iliac arteries The bilateral internal iliac arteries are occluded. The bilateral external iliac arteries are widely patent and supply and mildly diseased bilateral common femoral arteries with 30% stenoses. The bilateral profunda femoris arteries are widely patent The right superficial femoral artery is atretic at its origin off the common femoral artery and is then subtotally occluded in the proximal segment. The vessel reconstitutes in Kenrick's canal at the popliteal level. The popliteal artery then has mild 30% atheromatous plaque and then provides two-vessel runoff below the knee right side The left superficial femoral artery is ostially occluded with no origination site and occluded throughout its entire course. The popliteal artery then reconstitutes via collaterals from the profunda for Brennan artery and is then widely patent into the anterior tibialis artery and the peroneal artery and then supplies scant two-vessel runoff into the left foot IMPRESSION Peripheral artery disease as described above Bilaterally occluded superficial femoral arteries with two-vessel runoff bilaterally PLAN 1. Medical management 2. Unless patient has limb threatening ischemia medical management is most warranted as percutaneous stenting would have a short half-life and would almost certainly occlude within a short period of time. Furthermore stenting the bilateral SFAs would encroach upon the origin of the profunda femoris artery and then put the entire bilateral legs and ischemic jeopardy 3. LDL less than 55 4. Immediate avoidance of tobacco products 5. Aggressive physical therapy in order to promote collateralization Electronically signed by : Mehul Beard MD 01/24/2021 11:13:42
--- NOTE | 2021-01-24 07:43 | CA_ITS ---
APPROVED REPORT [employer] Lecturer: Jaiden Richardson [facility], [place] Laterality: Bilateral Indications: carotid bruit, Carotid artery stenosis, Smoker, DM, HTN, CAD Risk Factors Hypertension: Hyperlipidemia Diabetes Family History: CAD, Diabetes, Smoking Doppler Spectral Velocity Analysis ECA (R) 154.10/0.00 cm/s ECA (L) 127.20/11.80 cm/s dICA (R) 103.10/30.80 cm/s dICA (L) 105.80/12.90 cm/s Mariah (R) 111.70/27.00 cm/s Mariah (L) 156.40/47.00 cm/s pICA (R) 147.40/33.70 cm/s pICA (L) 178.70/38.80 cm/s dCCA (R) 82.30/19.70 cm/s dCCA (L) 103.10/10.60 cm/s pCCA (R) 101.60/17.10 cm/s pCCA (L) 82.80/13.50 cm/s Vert (R) 58.80/25.00 cm/s Vert (L) 18.80/6.20 cm/s ICA/CCA 1.70 ICA/CCA 1.80 Findings Duplex evaluation demonstrates stenosis of the right proximal internal carotid artery in the range of 50-69% with PSV =140 cm/sec, EDV <100 cm/sec, and IC/CC Ratio <4.0. Duplex evaluation demonstrates stenosis of the left proximal internal carotid artery in the range of 50-69% with PSV =140 cm/sec, EDV <100 cm/sec, and IC/CC Ratio <4.0. Duplex evaluation demonstrates antegrade flow of the bilateral Vertebral Arteries. Real Time B-Mode Imaging Area Right Description Left Description CCA Intimal thickening Irregular, Homogeneous, Intimal thickening BIF Homogeneous with calcification Homogeneous, Irregular hypoechoic, Intimal thickening Conclusion Duplex evaluation demonstrates stenosis of the right proximal internal carotid artery in the range of 50-69% with PSV =140 cm/sec, EDV <100 cm/sec, and IC/CC Ratio <4.0. Duplex evaluation demonstrates stenosis of the left proximal internal carotid artery in the range of 50-69% with PSV =140 cm/sec, EDV <100 cm/sec, and IC/CC Ratio <4.0. Duplex evaluation demonstrates antegrade flow of the bilateral Vertebral Arteries. Electronically signed by : Eulogio Lombardo MD 01/24/2021 17:24:57
== END 2021-01-24 14:10 | disposition home or self-care (01) ==
LOC: CATHLAB 07:34
PROVIDERS: PCP Emergency Medicine; Visit Provider Internal Medicine
DX: I70.223 Atherosclerosis of native arteries of extremities with rest pain, bilateral legs; I25.10 Atherosclerotic heart disease of native coronary artery without angina pectoris; I33.0 Acute and subacute infective endocarditis; I65.23 Occlusion and stenosis of bilateral carotid arteries; E78.5 Hyperlipidemia, unspecified; Z95.1 Presence of aortocoronary bypass graft; Z95.810 Presence of automatic (implantable) cardiac defibrillator; E78.2 Mixed hyperlipidemia; E11.9 Type 2 diabetes mellitus without complications; Z79.4 Long term (current) use of insulin; Z79.899 Other long term (current) drug therapy; I50.9 Heart failure, unspecified; I11.0 Hypertensive heart disease with heart failure; Z79.01 Long term (current) use of anticoagulants
CPT/HCPCS: 36247; 36248; 75716; 93880; 99152; C1725; C1769; C1894; J1644; Q9966

== ENCOUNTER → 2021-02-09 08:11 | Outpatient (CLI) | payer MEDICARE, MEDICAID, SELFPAY ==
--- NOTE | 2021-02-09 08:11 | MM_ITS ---
PROCEDURE INFORMATION: Exam: MG Bilateral Screening 3D Mammography Exam date and time: 02/09/2021 8:11 AM Age: 60 years old Clinical indication: Encounter for screening mammogram for malignant neoplasm of breast TECHNIQUE: Imaging protocol: Bilateral screening tomosynthesis and 2D mammography including computer-aided detection (CAD) when performed. COMPARISON: MG MM DIG SCREENING MAMM BI W/CAD 09/18/2018 4:55 PM FINDINGS: MAMMOGRAPHY: Breast composition: The breast tissue is composed of scattered areas of fibroglandular density. Mass: None. Architectural distortion: None. Calcifications: No suspicious calcifications. Asymmetric density: None. Skin thickening: None. Axillary adenopathy: None. IMPRESSION: No mammographic evidence of malignancy. Annual screening is recommended unless otherwise clinically indicated. ASSESSMENT: BI-RADS Category 1: Negative
== END ==
PROVIDERS: PCP Emergency Medicine; Visit Provider Emergency Medicine
DX: Z12.31 Encounter for screening mammogram for malignant neoplasm of breast (principal)
CPT/HCPCS: 77063; 77067

== ENCOUNTER → 2021-03-21 16:00 | Outpatient (CLI) | payer MEDICARE, MEDICAID, SELFPAY ==
[2021-03-21 15:11] LABS: Amphetamine/Metha Screen,Urine Negative ng/ml (<1000)
[2021-03-21 15:12] LABS: Barbiturates Screen,Urine Negative ng/ml (<200); Benzodiazepines Screen,Urine Positive ng/ml (<200)
[2021-03-21 15:13] LABS: Cannabinoid Screen,Urine Positive ng/ml (<50); Cocaine Screen,Urine Negative ng/ml (<300)
[2021-03-21 15:14] LABS: Methadone Screen,Urine Negative ng/ml (<300)
[2021-03-21 15:15] LABS: Opiate Screen,Urine Negative ng/ml (<300); Phencyclidine Screen,Urine Negative ng/ml (<25)
== END ==
PROVIDERS: Visit Provider Emergency Medicine
DX: Z79.899 Other long term (current) drug therapy (principal)
CPT/HCPCS: 80305

== ENCOUNTER → 2021-05-26 08:34 | Outpatient (CLI) | payer MEDICARE, MEDICAID, SELFPAY ==
[2021-05-26 18:59] LABS: Alanine Aminotransferase 18 U/L (12-78); Albumin/Globulin Ratio 1.5 (1.1-1.8); Alkaline Phosphatase 124 U/L (38-126); Anion Gap 14.2 mEq/L (5-15); Aspartate Amino Transferase 20 U/L (14-36); Bilirubin,Total 0.3 mg/dl (0.2-1.3); Blood Urea Nitrogen 33 mg/dl (7-17); Calcium 9.2 mg/dl (8.4-10.2); Carbon Dioxide 18 mmol/L (22.0-30.0); Chloride 111 mmol/L (98-107); Cholesterol 132 mg/dl (140-200); Estimated Glomerular Filt Rate 39 ml/min (>60); GFR (African American) 47 ML/MIN (>60); Globulin 2.7 g/dL (1.3-3.2); Glucose 190 mg/dl (74-100); HDL Cholesterol 22 mg/dl (40-60); Potassium 4.2 mmoL/L (3.5-5.1); Sodium 139 mmol/L (136-145); Total Protein,Serum 6.7 g/dl (6.3-8.2); Triglycerides 204 mg/dl (30-150); VLDL Cholesterol 41 mg/dL (0-40)
[2021-05-26 19:04] LABS: Basophils # 0.1 K/mm3 (0-0.2); Eosinophils # 0.3 K/mm3 (0.0-0.4); Eosinophils % 3.2 % (0.1-12.0); Hematocrit 37.4 % (37.0-47.0); Hemoglobin 11.7 g/dL (12.2-16.2); Lymphocytes # 1.9 K/mm3 (0.7-4.5); Lymphocytes % 22.3 % (10-50); Mean Corpuscular HGB Conc 31.1 g/dL (31.8-35.4); Mean Corpuscular Hemoglobin 28.4 pg (27.0-31.2); Mean Corpuscular Volume 91.1 fl (81-99); Mean Platelet Volume 9.3 fl (7.4-10.4); Monocytes # 0.4 K/mm3 (0.1-1.0); Monocytes % 4.2 % (1.7-9.3); Neutrophils % 69.3 % (37.0-80.0); Platelet Count 380 K/mm3 (142-424); Red Blood Count 4.11 M/mm3 (4.20-5.40); Red Cell Distribution Width 18.6 % (11.5-17.5); White Blood Count 8.6 K/mm3 (4.8-10.8)
[2021-05-26 19:10] LABS: Direct LDL Cholesterol 77.55 mg/dL (100-129)
[2021-05-26 19:16] LABS: Free T4 (Free Thyroxine) 1.14 ng/dl (0.78-2.19)
[2021-05-26 19:17] LABS: 25-OH Vitamin D, Total 45.4 ng/mL (30-100)
[2021-05-26 19:30] LABS: Thyroid Stimulating Hormone 3.31 uIU/mL (0.465-4.68)
== END ==
PROVIDERS: Visit Provider Emergency Medicine
DX: E13.9 Other specified diabetes mellitus without complications (principal); E55.9 Vitamin D deficiency, unspecified; Z79.4 Long term (current) use of insulin
CPT/HCPCS: 80053; 80061; 82306; 83036; 84439; 84443; 85025

== ENCOUNTER → 2021-10-20 17:00 | Outpatient (CLI) | payer MEDICARE, MEDICAID, SELFPAY ==
[2021-10-20 15:59] LABS: Amphetamine/Metha Screen,Urine Negative ng/ml (<1000); Barbiturates Screen,Urine Negative ng/ml (<200)
[2021-10-20 16:00] LABS: Benzodiazepines Screen,Urine Positive ng/ml (<200)
[2021-10-20 16:01] LABS: Cannabinoid Screen,Urine Positive ng/ml (<50); Cocaine Screen,Urine Negative ng/ml (<300)
[2021-10-20 16:02] LABS: Methadone Screen,Urine Negative ng/ml (<300)
[2021-10-20 16:03] LABS: Opiate Screen,Urine Negative ng/ml (<300); Phencyclidine Screen,Urine Negative ng/ml (<25)
== END ==
PROVIDERS: PCP Emergency Medicine; Visit Provider Emergency Medicine
DX: Z79.899 Other long term (current) drug therapy (principal)
CPT/HCPCS: 80305

== ENCOUNTER → 2021-12-18 14:41 | Outpatient (CLI) | payer MEDICARE, MEDICAID, SELFPAY ==
[2021-12-18 15:04] LABS: Alanine Aminotransferase 12 U/L (12-78); Albumin Level 4.4 g/dl (3.5-5.0); Albumin/Globulin Ratio 1.5 (1.1-1.8); Alkaline Phosphatase 160 U/L (38-126); Aspartate Amino Transferase 21 U/L (14-36); Basophils # 0.1 K/mm3 (0-0.2); Basophils % 0.9 % (0.1-2.0); Bilirubin,Total 0.3 mg/dl (0.2-1.3); Blood Urea Nitrogen 43 mg/dl (7-17); Calcium 9.8 mg/dl (8.4-10.2); Carbon Dioxide 23 mmol/L (22.0-30.0); Chloride 104 mmol/L (98-107); Chol/HDL Ratio 4.8 (1-3.5); Cholesterol 145 mg/dl (140-200); Eosinophils # 0.3 K/mm3 (0.0-0.4); Eosinophils % 3.2 % (0.1-12.0); Estimated Glomerular Filt Rate 33 ml/min (>60); GFR (African American) 40 ML/MIN (>60); Glucose 208 mg/dl (74-100); HDL Cholesterol 30 mg/dl (40-60); Hemoglobin 11.8 g/dL (12.2-16.2); Lymphocytes # 2.1 K/mm3 (0.7-4.5); Lymphocytes % 21.4 % (10-50); Mean Corpuscular HGB Conc 33.7 g/dL (31.8-35.4); Mean Corpuscular Hemoglobin 30.3 pg (27.0-31.2); Mean Corpuscular Volume 89.9 fl (81-99); Mean Platelet Volume 8.9 fl (7.4-10.4); Monocytes # 0.4 K/mm3 (0.1-1.0); Neutrophils % 70.6 % (37.0-80.0); Platelet Count 466 K/mm3 (142-424); Red Blood Count 3.89 M/mm3 (4.20-5.40); Red Cell Distribution Width 17.2 % (11.5-17.5); Sodium 141 mmol/L (136-145); Total Protein,Serum 7.4 g/dl (6.3-8.2); Triglycerides 189 mg/dl (30-150); VLDL Cholesterol 38 mg/dL (0-40)
[2021-12-18 15:16] LABS: Direct LDL Cholesterol 83.01 mg/dL (100-129)
[2021-12-18 15:21] LABS: 25-OH Vitamin D, Total 59.7 ng/mL (30-100)
[2021-12-18 15:35] LABS: Thyroid Stimulating Hormone 2.49 uIU/mL (0.465-4.68)
[2021-12-18 16:05] LABS: Anion Gap 18.4 mEq/L (5-15); Potassium 4.4 mmoL/L (3.5-5.1)
[2021-12-18 16:24] LABS: Hemoglobin A1C 9.3 % (4.0-6.0)
[2021-12-18 16:41] LABS: Amphetamine/Metha Screen,Urine Negative ng/ml (<1000); Barbiturates Screen,Urine Negative ng/ml (<200)
[2021-12-18 16:42] LABS: Benzodiazepines Screen,Urine Positive ng/ml (<200); Cannabinoid Screen,Urine Positive ng/ml (<50)
[2021-12-18 16:43] LABS: Cocaine Screen,Urine Negative ng/ml (<300)
[2021-12-18 16:44] LABS: Methadone Screen,Urine Negative ng/ml (<300); Opiate Screen,Urine Negative ng/ml (<300)
[2021-12-18 16:46] LABS: Phencyclidine Screen,Urine Negative ng/ml (<25)
[2021-12-18 17:17] LABS: Creatinine,Urine Random 57 mg/dL (Not Estab.)
== END ==
PROVIDERS: PCP Emergency Medicine; Visit Provider Emergency Medicine
DX: Z79.899 Other long term (current) drug therapy (principal); E13.9 Other specified diabetes mellitus without complications; E55.9 Vitamin D deficiency, unspecified; Z79.4 Long term (current) use of insulin
CPT/HCPCS: 80053; 80061; 80305; 82043; 82306; 82570; 83036; 84439; 84443; 85025

== ENCOUNTER → 2021-12-28 14:21 | Outpatient (CLI) | payer MEDICARE, MEDICAID, SELFPAY ==
[2021-12-28 15:40] LABS: Gamma Glutamyl Transpeptidase 25 U/L (12-43); Phosphorous 4.4 mg/dl (2.5-4.5)
[2021-12-30 14:26] LABS: Peripheral Smear Review Scanned Result
== END ==
PROVIDERS: PCP Emergency Medicine; Visit Provider Emergency Medicine
DX: A40.1 Sepsis due to streptococcus, group B (principal); R74.8 Abnormal levels of other serum enzymes
CPT/HCPCS: 36415; 82977; 84100

== ENCOUNTER → 2022-01-05 09:56 | Outpatient (CLI) | payer MEDICARE, MEDICAID, SELFPAY ==
--- NOTE | 2022-01-05 10:03 | US_ITS ---
FINAL REPORT CLINICAL HISTORY: Right upper quadrant pain FINDINGS: Sonographic images of the right upper quadrant were obtained. The pancreas is partially obscured.The liver has an unremarkable appearance. By history the patient is to be status post cholecystectomy. There is a 2.3 cm cystic lesion in the gallbladder fossa which may represent an exophytic hepatic cyst, seroma, biloma. There is no evidence of biliary ductal dilatation.The common duct measures 2 mm. The right kidney measures 9 cm in length. There are 2 right renal cysts measuring 2.1 and 1.1 cm. IMPRESSION: Right renal cysts. Cystic lesion in the gallbladder fossa in this post cholecystectomy patient. This cystic lesion may represent an exophytic hepatic cyst, seroma, or biloma. If indicated, follow-up CT or MRI could further evaluate. Reviewed, Interpreted and Dictated by Edwardo Villatoro III, MD Transcribed by Ирина De Jesus Authenticated and [facility]
== END ==
PROVIDERS: PCP Emergency Medicine; Visit Provider Emergency Medicine
DX: R74.8 Abnormal levels of other serum enzymes (principal)
CPT/HCPCS: 76705

== ENCOUNTER → 2022-02-16 18:02 | Outpatient (CLI) | payer MEDICARE, MEDICAID, SELFPAY ==
[2022-02-16 16:23] LABS: Amphetamine/Metha Screen,Urine Negative ng/ml (<1000)
[2022-02-16 16:24] LABS: Cannabinoid Screen,Urine Positive ng/ml (<50)
[2022-02-16 16:25] LABS: Barbiturates Screen,Urine Negative ng/ml (<200); Benzodiazepines Screen,Urine Positive ng/ml (<200)
[2022-02-16 16:26] LABS: Cocaine Screen,Urine Negative ng/ml (<300); Methadone Screen,Urine Negative ng/ml (<300)
[2022-02-16 16:27] LABS: Opiate Screen,Urine Negative ng/ml (<300)
[2022-02-16 16:28] LABS: Phencyclidine Screen,Urine Negative ng/ml (<25)
== END ==
PROVIDERS: PCP Emergency Medicine; Visit Provider Emergency Medicine
DX: Z79.899 Other long term (current) drug therapy (principal)
CPT/HCPCS: 80305

== ENCOUNTER → 2022-05-14 13:50 | Outpatient (CLI) | payer MEDICARE, MEDICAID, SELFPAY ==
[2022-05-14 14:51] LABS: Amphetamine/Metha Screen,Urine Negative ng/ml (<1000); Barbiturates Screen,Urine Negative ng/ml (<200)
[2022-05-14 14:53] LABS: Cannabinoid Screen,Urine Positive ng/ml (<50); Cocaine Screen,Urine Negative ng/ml (<300)
[2022-05-14 14:54] LABS: Methadone Screen,Urine Negative ng/ml (<300)
[2022-05-14 14:55] LABS: Opiate Screen,Urine Negative ng/ml (<300)
[2022-05-14 14:57] LABS: Phencyclidine Screen,Urine Negative ng/ml (<25)
[2022-05-14 15:21] LABS: Benzodiazepines Screen,Urine Positive ng/ml (<200)
== END ==
PROVIDERS: PCP Emergency Medicine; Visit Provider Emergency Medicine
DX: Z79.899 Other long term (current) drug therapy (principal)
CPT/HCPCS: 80305

== ENCOUNTER → 2022-06-12 11:09 | Outpatient (CLI) | payer MEDICARE, MEDICAID, SELFPAY ==
[2022-06-12 12:30] LABS: Basophils # 0.1 K/mm3 (0-0.2); Basophils % 0.6 % (0.1-2.0); Eosinophils # 0.4 K/mm3 (0.0-0.4); Eosinophils % 3.7 % (0.1-12.0); Hematocrit 38.3 % (37.0-47.0); Hemoglobin 12.1 g/dL (12.2-16.2); Lymphocytes # 2.4 K/mm3 (0.7-4.5); Lymphocytes % 21.1 % (10-50); Mean Corpuscular HGB Conc 31.5 g/dL (31.8-35.4); Mean Corpuscular Hemoglobin 27.8 pg (27.0-31.2); Mean Corpuscular Volume 88.2 fl (81-99); Mean Platelet Volume 8.6 fl (7.4-10.4); Monocytes # 0.4 K/mm3 (0.1-1.0); Monocytes % 3.9 % (1.7-9.3); Neutrophils # 8.1 K/mm3 (1.8-7.8); Neutrophils % 70.7 % (37.0-80.0); Platelet Count 342 K/mm3 (142-424); Red Blood Count 4.34 M/mm3 (4.20-5.40); Red Cell Distribution Width 16.7 % (11.5-17.5); White Blood Count 11.4 K/mm3 (4.8-10.8)
[2022-06-12 12:42] LABS: Chloride 107 mmol/L (98-107)
[2022-06-12 12:43] LABS: Potassium 4.6 mmoL/L (3.5-5.1); Sodium 142 mmol/L (136-145)
[2022-06-12 12:45] LABS: Alanine Aminotransferase 14 U/L (12-78); Anion Gap 19.6 mEq/L (5-15); Aspartate Amino Transferase 17 U/L (14-36); Bilirubin,Unconjugated 0.2 mg/dL (0.0-1.1); Blood Urea Nitrogen 45 mg/dl (7-17); Carbon Dioxide 20 mmol/L (22.0-30.0); Estimated Glomerular Filt Rate 25 ml/min (>60); GFR (African American) 31 ML/MIN (>60)
[2022-06-12 12:46] LABS: Albumin Level 3.9 g/dl (3.5-5.0); Alkaline Phosphatase 119 U/L (38-126); Bilirubin,Direct 0.2 mg/dl (0.0-0.4); Bilirubin,Indirect 0.1 mg/dL (0.0-0.9); Bilirubin,Total 0.3 mg/dl (0.2-1.3); Calcium 9.3 mg/dl (8.4-10.2); Chol/HDL Ratio 4.9 (1-3.5); Cholesterol 127 mg/dl (140-200); Glucose 156 mg/dl (74-100); HDL Cholesterol 26 mg/dl (40-60); Total Protein,Serum 6.6 g/dl (6.3-8.2); Triglycerides 160 mg/dl (30-150); VLDL Cholesterol 32 mg/dL (0-40)
[2022-06-12 12:57] LABS: Direct LDL Cholesterol 86.43 mg/dL (100-129)
[2022-06-12 13:00] LABS: Free T4 (Free Thyroxine) 1.01 ng/dl (0.78-2.19)
[2022-06-12 13:16] LABS: Thyroid Stimulating Hormone 2.73 uIU/mL (0.465-4.68)
[2022-06-13 09:08] LABS: Hemoglobin A1C 7.3 % (4.0-6.0)
== END ==
PROVIDERS: Nurse Practitioner Family; PCP Emergency Medicine; Visit Provider Nurse Practitioner
DX: E78.2 Mixed hyperlipidemia (principal); I11.9 Hypertensive heart disease without heart failure; I25.10 Atherosclerotic heart disease of native coronary artery without angina pectoris; I33.0 Acute and subacute infective endocarditis; Z72.0 Tobacco use; Z95.0 Presence of cardiac pacemaker; Z95.1 Presence of aortocoronary bypass graft; R06.00 Dyspnea, unspecified; E11.9 Type 2 diabetes mellitus without complications; I63.9 Cerebral infarction, unspecified; Z79.4 Long term (current) use of insulin
CPT/HCPCS: 36415; 80048; 80061; 80076; 83036; 84439; 84443; 85025

== ENCOUNTER → 2022-06-14 09:18 | Outpatient (CLI) | payer MEDICARE, MEDICAID, SELFPAY ==
--- NOTE | 2022-06-14 09:24 | US_ITS ---
FINAL REPORT CLINICAL HISTORY: CLAUDICATION,REST PAIN,DM,SMOKER,CAD,HTN,HLD COMPARISON: None FINDINGS: ANKLE-BRACHIAL PRESSURE INDICES Pressure indices are as follows: RIGHT LOWER EXTREMITY: Ankle-brachial pressure index: 0.62 Comments: Moderate to severe disease LEFT LOWER EXTREMITY: Ankle-brachial pressure index: 0.56 Comments: Moderate to severe disease Waveforms are monophasic bilateral. IMPRESSION: Moderate to severe arterial disease bilateral lower extremities. Reviewed, Interpreted and Dictated by Dayday Owens MD Transcribed by Yasemin Hodges Authenticated and . [facility]
== END ==
PROVIDERS: PCP Emergency Medicine; Visit Provider Podiatrist
DX: I70.213 Atherosclerosis of native arteries of extremities with intermittent claudication, bilateral legs (principal)
CPT/HCPCS: 93923

== ENCOUNTER → 2022-06-19 08:27 | Outpatient (CLI) | payer MEDICARE, MEDICAID, SELFPAY ==
[2022-06-19 09:51] LABS: Chloride 106 mmol/L (98-107); Sodium 139 mmol/L (136-145)
[2022-06-19 09:52] LABS: Potassium 4.2 mmoL/L (3.5-5.1)
[2022-06-19 09:54] LABS: Blood Urea Nitrogen 48 mg/dl (7-17); Estimated Glomerular Filt Rate 29 ml/min (>60); GFR (African American) 35 ML/MIN (>60)
[2022-06-19 09:55] LABS: Anion Gap 20.2 mEq/L (5-15); Calcium 8.7 mg/dl (8.4-10.2); Carbon Dioxide 17 mmol/L (22.0-30.0); Glucose 176 mg/dl (74-100)
== END ==
PROVIDERS: PCP Emergency Medicine; Visit Provider Nurse Practitioner
DX: N28.9 Disorder of kidney and ureter, unspecified (principal)
CPT/HCPCS: 36415; 80048

== ENCOUNTER → 2022-06-26 08:22 | Outpatient (CLI) | payer MEDICARE, MEDICAID, SELFPAY ==
--- NOTE | 2022-06-26 08:24 | CA_ITS ---
FINAL REPORT TECHNIQUE: Color Doppler, duplex Doppler and man scale sonography of the bilateral neck arterial vasculature was performed. Velocities were measured in the carotid arteries. Stenosis evaluation based on the validated velocity criteria. CLINICAL HISTORY: PRABHU,CAD,HTN,HLD COMPARISON: 01/24/2021 FINDINGS: The peak systolic velocity of the right common carotid artery is 97 cm/s. The peak systolic velocity of the right internal carotid artery is 148 cm/s and end diastolic velocity 35 cm/s. A mild amount of plaque is present. The right external carotid artery is patent. The right vertebral artery is patent with antegrade flow. The peak systolic velocity of the left common carotid artery is 118 cm/s. The peak systolic velocity of the left internal carotid artery is 192 cm/s and end diastolic velocity 18 cm/s. A moderate amount of plaque is present. The left external carotid artery is patent.The left vertebral artery is patent with antegrade flow. IMPRESSION: Less than 50% right carotid stenosis. 50-69% left internal carotid artery stenosis. Velocity is slightly elevated as compared to the prior exam. Bilateral patent vertebral arteries with antegrade flow. If indicated, CTA or MRA could further evaluate. Reviewed, Interpreted and Dictated by Edwardo Villatoro III, MD Transcribed by Ирина De Jesus Authenticated and [facility]
== END ==
LOC: RT 08:22
PROVIDERS: PCP Emergency Medicine; Visit Provider Nurse Practitioner
DX: E13.9 Other specified diabetes mellitus without complications (principal); E78.2 Mixed hyperlipidemia; I25.10 Atherosclerotic heart disease of native coronary artery without angina pectoris; I33.0 Acute and subacute infective endocarditis; I65.23 Occlusion and stenosis of bilateral carotid arteries; I73.9 Peripheral vascular disease, unspecified; R09.89 Other specified symptoms and signs involving the circulatory and respiratory systems; Z72.0 Tobacco use; Z95.0 Presence of cardiac pacemaker; Z95.1 Presence of aortocoronary bypass graft; Z95.2 Presence of prosthetic heart valve; Z98.890 Other specified postprocedural states
CPT/HCPCS: 93306; 93880

== ENCOUNTER → 2022-07-10 14:56 | Outpatient (CLI) | payer MEDICARE, MEDICAID, SELFPAY ==
[2022-07-10 14:39] LABS: Amphetamine/Metha Screen,Urine Negative ng/ml (<1000); Benzodiazepines Screen,Urine Positive ng/ml (<200)
[2022-07-10 14:40] LABS: Barbiturates Screen,Urine Negative ng/ml (<200); Cannabinoid Screen,Urine Positive ng/ml (<50)
[2022-07-10 14:41] LABS: Cocaine Screen,Urine Negative ng/ml (<300)
[2022-07-10 14:42] LABS: Methadone Screen,Urine Negative ng/ml (<300); Opiate Screen,Urine Positive ng/ml (<300)
[2022-07-10 14:43] LABS: Phencyclidine Screen,Urine Negative ng/ml (<25)
[2022-07-10 15:56] LABS: Microalbumin/Creatinine Ratio 1231.6
[2022-07-10 15:57] LABS: Creatinine,Urine Random 31 mg/dL (Not Estab.)
== END ==
LOC: LAB.DROPOF 14:57
PROVIDERS: PCP Emergency Medicine; Visit Provider Emergency Medicine
DX: E13.9 Other specified diabetes mellitus without complications (principal); Z79.899 Other long term (current) drug therapy; Z79.4 Long term (current) use of insulin
CPT/HCPCS: 80305; 82043; 82570

== ENCOUNTER → 2022-07-19 09:56 | Outpatient (CLI) | payer MEDICARE, MEDICAID, SELFPAY ==
--- NOTE | 2022-07-19 10:03 | US_ITS ---
FINAL REPORT CLINICAL HISTORY: BENIGN HYPERTENSION. STAGE 4 CHRONIC KIDNEY DISEASE. FINDINGS: RENAL ULTRASOUND Ultrasound images of the kidneys were obtained. The right kidney measures 8.0 cm in length. The left kidney measures 9.0 cm in length. The right kidney is mildly atrophic relative to the left kidney. There are bilateral simple cysts with the largest measuring up to 2.7 cm on the right kidney. There is no solid mass or lesion. There is no hydronephrosis. IMPRESSION: No obstructive uropathy. Mildly atrophic right kidney without overall significant atrophy. Reviewed, Interpreted and Dictated by Whit Dobbs MD Transcribed by Ирина De Jesus Authenticated and [facility]
== END ==
LOC: RAD 09:57
PROVIDERS: PCP Emergency Medicine; Visit Provider Internal Medicine Nephrology
DX: I25.10 Atherosclerotic heart disease of native coronary artery without angina pectoris (principal); I10 Essential (primary) hypertension; N18.4 Chronic kidney disease, stage 4 (severe); E11.21 Type 2 diabetes mellitus with diabetic nephropathy; Z79.4 Long term (current) use of insulin
CPT/HCPCS: 76770

== ENCOUNTER 2022-08-07 07:53 | Day surgery (SDC) | payer MEDICARE, MEDICAID, SELFPAY ==
[2022-08-07] VITALS (7 sets, daily range): BP systolic 98–150; BP diastolic 48–81; PULSE 63–80; RESP 18; TEMP 37.1; O2SAT 97–100; BMI 29.6
--- NOTE | 2022-08-07 07:11 | IR_ITS ---
APPROVED REPORT Patient Location: Outpatient [facility] Operator: JEREMY Keane RT (R) PROCEDURES 1. Pocket Revision 2. Removal of old cardiac resynchonization therapy-defibrilator device 3. Implant of new cardiac resynchonization therapy-defibrilator device INDICATION End of Battery Life Informed consent was obtained prior to the procedure. COMPLICATIONS None Estimated Blood Loss: Less than 10 ML TECHNIQUE 1% lidocaine with epinephrine used to anesthetize the left anterior aspect of the chest. Scalpel was used to make the initial cutaneous incision and then used to dissect down to the existing cardiac resynchonization therapy-defibrilator generator. The generator was removed from the existing pocket. Digital manipulation was required along with intermittent usage of scalpel in order to revise the pocket. The leads were removed from the old generator. The new generator was screwed to the existing leads and secured into place. Electronic interrogation proved acceptable thresholds and voltage within the lead. Antibiotics were used to flush the pocket and the cardiac resynchonization therapy-defibrilator device was secured using 3-0 silk into the newly revised pocket. Monocryl was used to close the subcutaneous tissue and then reji were placed on the cutaneous area in order to approximate the incision. Patient was transferred to the postop holding area in stable condition. INTERROGATION Explanted Generator Model number: [id number] Explanted Generator Serial number: [id number] Implanted Generator Model number: [id number] Implanted Generator Serial number: [id number] Atrial lead model number: 5076/45CM Atrial lead serial number: [id number] P-wave: 0.3mV Impedence: 506 ohms Threshold: 2.0V@0.4ms Right Ventricular lead model number: 6947/58CM Right Ventricular lead serial number: [id number] R-wave: 11mV Impedence: 604 ohms Threshold: 1.0V@0.4ms Left Ventricular lead model number: 4598/88CM Left Ventricular lead serial number: [id number] Impedence: 1056 ohms Threshold: 1.125V@0.4ms (LV 1-2) Pacing Parameters: Mode: DDDR Base/Max Track:60 ppm / 130 ppm No diaphragmatic stimulation at 10 volts. IMPRESSION 1. Successful Pocket Revision 2. Successful Removal of old cardiac resynchonization therapy-defibrilator device 3. Successful Implant of new cardiac resynchonization therapy-defibrilator device PLAN 1. Post Op Wound Care Electronically signed by : Mehul Beard MD 08/09/2022 09:01:51
[2022-08-07 08:54] LABS: Basophils # 0.1 K/mm3 (0-0.2); Basophils % 0.7 % (0.1-2.0); Eosinophils # 0.4 K/mm3 (0.0-0.4); Eosinophils % 3.1 % (0.1-12.0); Hemoglobin 14.1 g/dL (12.2-16.2); Lymphocytes % 16.5 % (10-50); Mean Corpuscular Hemoglobin 27.1 pg (27.0-31.2); Mean Corpuscular Volume 90.1 fl (81-99); Mean Platelet Volume 8.5 fl (7.4-10.4); Monocytes # 0.5 K/mm3 (0.1-1.0); Monocytes % 4.2 % (1.7-9.3); Neutrophils # 9.1 K/mm3 (1.8-7.8); Neutrophils % 75.6 % (37.0-80.0); Platelet Count 311 K/mm3 (142-424); Red Blood Count 5.21 M/mm3 (4.20-5.40); Red Cell Distribution Width 17.5 % (11.5-17.5)
[2022-08-07 09:04] LABS: Chloride 110 mmol/L (98-107)
[2022-08-07 09:05] LABS: Potassium 3.9 mmoL/L (3.5-5.1); Sodium 142 mmol/L (136-145)
[2022-08-07 09:07] LABS: Blood Urea Nitrogen 51 mg/dl (7-17); Creatinine Clearance Estimated 34 mL/min (50-200); Estimated Glomerular Filt Rate 25 ml/min (>60); GFR (African American) 31 ML/MIN (>60)
[2022-08-07 09:08] LABS: Anion Gap 20.9 mEq/L (5-15); Calcium 9.3 mg/dl (8.4-10.2); Carbon Dioxide 15 mmol/L (22.0-30.0); Glucose 145 mg/dl (74-100)
== END 2022-08-07 12:13 | disposition home or self-care (01) ==
PROVIDERS: PCP Emergency Medicine; Visit Provider Internal Medicine
DX: Z45.02 Encounter for adjustment and management of automatic implantable cardiac defibrillator (principal); I25.118 Atherosclerotic heart disease of native coronary artery with other forms of angina pectoris; E11.9 Type 2 diabetes mellitus without complications; Z79.4 Long term (current) use of insulin; E03.9 Hypothyroidism, unspecified; E78.5 Hyperlipidemia, unspecified; I11.9 Hypertensive heart disease without heart failure; I25.2 Old myocardial infarction; F17.210 Nicotine dependence, cigarettes, uncomplicated; I70.213 Atherosclerosis of native arteries of extremities with intermittent claudication, bilateral legs; I33.0 Acute and subacute infective endocarditis; Z79.899 Other long term (current) drug therapy
CPT/HCPCS: 33264; 80048; 85025; 99152; 99153; C1882; C1894

== ENCOUNTER → 2022-09-07 12:53 | Outpatient (CLI) | payer MEDICARE, MEDICAID, SELFPAY ==
[2022-09-07 11:59] LABS: Microscopic, Urine URINE MICROSCOPIC (MICROSCOPIC)
[2022-09-07 12:54] LABS: Appearance,Urine SL CLOUDY (Clear); Bilirubin,Urine Negative (Negative); Blood, Urine TRACE-I (Negative); Color,Urine YELLOW (Yellow); Glucose,Urine (UA) Negative (Negative); Ketones,Urine Negative (Negative); Leukocyte Esterase,Urine 3+ (Negative); Nitrate,Urine POSITIVE (Negative); PH,Urine 8.5 (5.0-8.5); Protein,Urine 2+ (Negative); Specific Gravity, Urine 1.015 (1.005-1.030); Urobilinogen,Urine 0.2 EU/dl (0.2)
[2022-09-07 13:07] LABS: Bacteria,Urine 1+ /lpf; RBC,Urine Occasional #/hpf (0-3); Triple Phosphate Crystal,Urine 1+ /lpf
[2022-09-07 13:42] LABS: Creatinine,Urine Random 47 mg/dL (Not Estab.)
[2022-09-07 13:49] LABS: Microalbumin/Creatinine Ratio 693.1
== END ==
PROVIDERS: PCP Emergency Medicine; Visit Provider Emergency Medicine
DX: N39.0 Urinary tract infection, site not specified (principal); R78.81 Bacteremia; B96.4 Proteus (mirabilis) (morganii) as the cause of diseases classified elsewhere
CPT/HCPCS: 81001; 82043; 82570; 87086; 87088; 87186

== ENCOUNTER → 2022-12-05 15:39 | Outpatient (CLI) | payer MEDICARE, MEDICAID, SELFPAY ==
[2022-12-05 16:55] LABS: Amphetamine/Metha Screen,Urine Negative ng/ml (<1000)
[2022-12-05 16:56] LABS: Barbiturates Screen,Urine Negative ng/ml (<200)
[2022-12-05 16:57] LABS: Benzodiazepines Screen,Urine Positive ng/ml (<200); Cannabinoid Screen,Urine Positive ng/ml (<50)
[2022-12-05 16:58] LABS: Cocaine Screen,Urine Negative ng/ml (<300); Methadone Screen,Urine Negative ng/ml (<300)
[2022-12-05 16:59] LABS: Opiate Screen,Urine Negative ng/ml (<300)
[2022-12-05 17:00] LABS: Phencyclidine Screen,Urine Negative ng/ml (<25)
== END ==
PROVIDERS: PCP Emergency Medicine; Visit Provider Emergency Medicine
DX: Z79.899 Other long term (current) drug therapy (principal)
CPT/HCPCS: 80305

== ENCOUNTER 2023-03-01 14:13 | Outpatient (CLI) | payer MEDICARE, MEDICAID, SELFPAY ==
[2023-03-01 14:15] LABS: Microscopic, Urine URINE MICROSCOPIC (MICROSCOPIC)
[2023-03-01 14:48] LABS: Basophils # 0.1 K/mm3 (0-0.2); Basophils % 0.8 % (0.1-2.0); Eosinophils # 0.2 K/mm3 (0.0-0.4); Eosinophils % 2.5 % (0.1-12.0); Hematocrit 45.9 % (37.0-47.0); Hemoglobin 14.7 g/dL (12.2-16.2); Lymphocytes # 1.7 K/mm3 (0.7-4.5); Lymphocytes % 18.2 % (10-50); Mean Corpuscular HGB Conc 32.1 g/dL (31.8-35.4); Mean Corpuscular Hemoglobin 29.4 pg (27.0-31.2); Mean Corpuscular Volume 91.5 fl (81-99); Mean Platelet Volume 9.3 fl (7.4-10.4); Monocytes # 0.5 K/mm3 (0.1-1.0); Neutrophils # 6.9 K/mm3 (1.8-7.8); Neutrophils % 73.5 % (37.0-80.0); Platelet Count 318 K/mm3 (142-424); Red Blood Count 5.01 M/mm3 (4.20-5.40); Red Cell Distribution Width 16.4 % (11.5-17.5); White Blood Count 9.5 K/mm3 (4.8-10.8)
[2023-03-01 14:50] LABS: Appearance,Urine SL CLOUDY (Clear); Bilirubin,Urine Negative (Negative); Blood, Urine TRACE-I (Negative); Color,Urine YELLOW (Yellow); Glucose,Urine (UA) Negative (Negative); Ketones,Urine Negative (Negative); Leukocyte Esterase,Urine 1+ (Negative); Nitrate,Urine POSITIVE (Negative); Protein,Urine 2+ (Negative); Specific Gravity, Urine 1.015 (1.005-1.030); Urobilinogen,Urine 0.2 EU/dl (0.2)
[2023-03-01 15:01] LABS: Barbiturates Screen,Urine Negative ng/ml (<200); RBC,Urine Occasional #/hpf (0-3); Squamous Epithelial Cell,Urine Occasional #/hpf (0-5)
[2023-03-01 15:02] LABS: Amphetamine/Metha Screen,Urine Negative ng/ml (<1000); Bacteria,Urine 3+ /lpf; Benzodiazepines Screen,Urine Positive ng/ml (<200); Chloride 112 mmol/L (98-107); Potassium 4.4 mmoL/L (3.5-5.1); Sodium 139 mmol/L (136-145)
[2023-03-01 15:03] LABS: Cannabinoid Screen,Urine Positive ng/ml (<50)
[2023-03-01 15:04] LABS: Cocaine Screen,Urine Negative ng/ml (<300); Methadone Screen,Urine Negative ng/ml (<300)
[2023-03-01 15:05] LABS: Alanine Aminotransferase 14 U/L (12-78); Albumin Level 4.5 g/dl (3.5-5.0); Albumin/Globulin Ratio 1.5 (1.1-1.8); Alkaline Phosphatase 182 U/L (38-126); Anion Gap 16.4 mEq/L (5-15); Aspartate Amino Transferase 21 U/L (14-36); Bilirubin,Total 0.5 mg/dl (0.2-1.3); Blood Urea Nitrogen 36 mg/dl (7-17); Calcium 9.6 mg/dl (8.4-10.2); Carbon Dioxide 15 mmol/L (22.0-30.0); Cholesterol 198 mg/dl (140-200); Estimated Glomerular Filt Rate 29 ml/min (>60); GFR (African American) 35 ML/MIN (>60); Globulin 3.1 g/dL (1.3-3.2); Glucose 185 mg/dl (74-100); Phencyclidine Screen,Urine Negative ng/ml (<25); Total Protein,Serum 7.6 g/dl (6.3-8.2); Triglycerides 159 mg/dl (30-150); VLDL Cholesterol 32 mg/dL (0-40)
[2023-03-01 15:06] LABS: Chol/HDL Ratio 7.9 (1-3.5); HDL Cholesterol 25 mg/dl (40-60)
[2023-03-01 15:20] LABS: 25-OH Vitamin D, Total 61.7 ng/mL (30-100)
[2023-03-01 15:25] LABS: Direct LDL Cholesterol 143.11 mg/dL (100-129)
[2023-03-01 15:29] LABS: Opiate Screen,Urine Negative ng/ml (<300)
[2023-03-01 15:39] LABS: Thyroid Stimulating Hormone 4.13 uIU/mL (0.465-4.68)
[2023-03-01 15:54] LABS: Creatinine,Urine Random 68 mg/dL (Not Estab.)
[2023-03-01 15:55] LABS: Hemoglobin A1C 8.6 % (4.0-6.0)
[2023-03-06 23:08] LABS: Gabapentin,Urine 236.1 ug/mL (.)
[2023-03-08 11:36] LABS: Alprazolam Negative (Cutoff=100); Benzodiazepines Negative ng/mL (Cutoff=100); Clonazepam Negative (Cutoff=100); Flurazepam Negative (Cutoff=100); Lorazepam Negative (Cutoff=100); Midazolam Negative (Cutoff=100); Opiates Negative (Cutoff=100); Temazepam Negative (Cutoff=100); Triazolam Negative (Cutoff=100)
== END 2023-03-01 23:59 ==
LOC: LAB.DROPOF 14:13
PROVIDERS: PCP Nurse Practitioner Family; Visit Provider Nurse Practitioner Family
DX: Z79.899 Other long term (current) drug therapy (principal); E11.9 Type 2 diabetes mellitus without complications; N28.9 Disorder of kidney and ureter, unspecified; E55.9 Vitamin D deficiency, unspecified; Z79.4 Long term (current) use of insulin
CPT/HCPCS: 80053; 80061; 80307; 80346; 80361; 80365; 81001; 82043; 82306; 82570; 83036; 84443; 85025; 87086; G0480

== ENCOUNTER 2023-12-11 20:59 | Inpatient (IN) | payer MEDICARE, MEDICAID, SELFPAY ==
--- NOTE | 2023-12-11 20:52 | ECG_ITS ---
APPROVED REPORT Exam: Resting ECG HR:104 bpm ECG Measurements Heart Rate 104 AXES [place] 169 P 251 QRSd 170 QRS 234 QT 399 T 61 QTc 459 Conclusion ELECTRONIC VENTRICULAR PACEMAKER ABNORMAL RHYTHM ECG UNCONFIRMED REPORT Electronically signed by : TIANNA YATES, 12/12/2023 06:52:00
[2023-12-11 20:55] VITALS: BP 181/104; PULSE 108; RESP 18; TEMP 36.9; O2SAT 97; BMI 28.1
[2023-12-11 21:19] LABS: Basophils # 0.1 K/mm3 (0-0.2); Basophils % 0.4 % (0.1-2.0); Eosinophils # 0.2 K/mm3 (0.0-0.4); Eosinophils % 1.3 % (0.1-12.0); Hematocrit 37.6 % (37.0-47.0); Hemoglobin 12.1 g/dL (12.2-16.2); Lymphocytes # 1.2 K/mm3 (0.7-4.5); Lymphocytes % 8.7 % (10-50); Mean Corpuscular HGB Conc 32.3 g/dL (31.8-35.4); Mean Platelet Volume 8.6 fl (7.4-10.4); Monocytes # 0.5 K/mm3 (0.1-1.0); Neutrophils # 11.3 K/mm3 (1.8-7.8); Neutrophils % 85.5 % (37.0-80.0); Platelet Count 291 K/mm3 (142-424); Red Blood Count 4.17 M/mm3 (4.20-5.40); Red Cell Distribution Width 15.9 % (11.5-17.5); White Blood Count 13.2 K/mm3 (4.8-10.8)
--- NOTE | 2023-12-11 21:20 | XR_ITS ---
PROCEDURE INFORMATION: Exam: XR Chest Exam date and time: 12/11/2023 9:22 PM Age: 63 years old Clinical indication: Pain; Chest pressure; Additional info: Defib firejack, cp/soa TECHNIQUE: Imaging protocol: Radiologic exam of the chest. Views: 1 view. COMPARISON: CR CXR1VP XR chest portable 04/17/2018 12:35 AM FINDINGS: Tubes, catheters and devices: Stable 2 lead pacemaker. Lungs: Mild interstitial prominence. No consolidation. Pleural spaces: Unremarkable. No pleural effusion. No pneumothorax. Heart/Mediastinum: Unremarkable. No cardiomegaly. Bones/joints: Unremarkable. IMPRESSION: Mild interstitial prominence. Query mild pulmonary edema/CHF symptoms.
[2023-12-11 21:21] LABS: Albumin Level 3.8 g/dl (3.5-5.0)
[2023-12-11 21:22] LABS: Chloride 112 mmol/L (98-107); Potassium 4.2 mmoL/L (3.5-5.1); Sodium 137 mmol/L (136-145)
[2023-12-11 21:24] LABS: Alanine Aminotransferase 16 U/L (12-78); Anion Gap 16.2 mEq/L (5-15); Aspartate Amino Transferase 24 U/L (14-36); Blood Urea Nitrogen 53 mg/dl (7-17); Carbon Dioxide 13 mmol/L (22.0-30.0); Creatinine Clearance Estimated 26 mL/min (50-200); Estimated Glomerular Filt Rate 21 ml/min (>60); GFR (African American) 25 ML/MIN (>60); MANUAL DIFFERENTIAL MANUAL DIFFERENTIAL (MANUAL DIFF)
--- NOTE | 2023-12-11 21:24 | HMH.EDCP ---
Discharge Plan Disposition Patient Disposition: Admitted Clinical Impressions Clinical Impression: ICD (implantable cardioverter-defibrillator) discharge, CHF (congestive heart failure), Shortness of breath, STACY (acute kidney injury) Discharge ED Provider: Ronda Barron General Chief Complaint: Chest Pain Stated Complaint: chest pain Time Seen by Provider: 12/11/23 21:07 Mode of Arrival: EMS Source of Information: Patient and EMS Limitations: No Limitations Description of Symptoms (Recalled from ER Triage Doc. by RN): Pt presents to ED via EMS for Chest pain after her pacemaker fired. Pt states she has no pain at this time. Pt follows [facility] for cardiology. Pt has no complaints at this time but is concerned that her pacemaker fired and it never has before. Pt is A&O*4. IV placed and labs sent. History of Present Illness HPI narrative: This patient is a 63-year-old female with a history of CAD, carotid stenosis, renal insufficiency, CHF with ICD in place, hypertension, hyperlipidemia, type 2 diabetes, obesity presenting to the emergency department for evaluation with concern for ICD firing. Patient is that she has had 1 for approximately 10 years and has never had it fired in the past, but today it fired twice around 5:00 PM. She states that she had been overdoing it, overworking and exerting herself. Since it fired, she was trying to avoid coming to the ED because she does not like the hospital but she is felt significantly short of breath, weak, and does not feel right. She denies any other concerns Related Data Home Medications ?Medication ?Instructions ?Recorded ?Confirmed levothyroxine 25 mcg tablet See Rx Instructions .Route 01/24/21 03/01/23 .COMPLEX thyroid insulin glargine 100 30 unit SQ QAM . 08/07/22 03/01/23 unit-lixisenatide 33 mcg/mL subcutaneous pen (Soliqua 100/33) insulin syringe-needle U-100 0.5 08/07/22 03/01/23 mL 31 gauge x 5/16 (Easy Touch Insulin Syringe) losartan 25 mg tablet See Rx Instructions .Route 08/07/22 03/01/23 .COMPLEX . Previous Rx's ?Medication ?Instructions ?Recorded albuterol sulfate 90 mcg/actuation 2 inh inhalation Q8H 0. #8.5 grams 08/10/22 aerosol inhaler (Proventil HFA) insulin human U-100 NPH-regulr See Rx Instructions .Route 12/03/22 70-30 mix 100 unit/mL subcutaneous .COMPLEX #20 mL susp (Novolin 70/30 U-100 Insulin) dapagliflozin propanediol 5 mg See Rx Instructions .Route 01/01/23 tablet (Farxiga) .COMPLEX #30 tabs atorvastatin 40 mg tablet See Rx Instructions .Route 01/07/23 .COMPLEX #90 tabs aspirin 81 mg tablet,delayed See Rx Instructions .Route 02/05/23 release .COMPLEX #90 tabs cholecalciferol (vitamin D3) 25 See Rx Instructions .Route 02/05/23 mcg (1,000 unit) tablet .COMPLEX #90 tabs ergocalciferol (vitamin D2) 1,250 See Rx Instructions .Route 02/05/23 mcg (50,000 unit) capsule .COMPLEX #14 caps citalopram 10 mg tablet See Rx Instructions .Route 02/08/23 .COMPLEX #30 tabs penicillin V potassium 250 mg See Rx Instructions .Route 02/08/23 tablet .COMPLEX #60 tabs budesonide-formoterol HFA 80 See Rx Instructions .Route 03/01/23 mcg-4.5 mcg/actuation aerosol .COMPLEX #10.2 grams inhaler (Symbicort) insulin syringe-needle U-100 0.5 #100 ea 03/01/23 mL 31 gauge x 5/16 (Easy Touch Insulin Syringe) zolpidem 5 mg tablet 5 mg PO QHS Insomnia #30 tabs 03/01/23 nitrofurantoin 100 mg PO Q12H 10 days #20 caps 03/08/23 monohydrate/macrocrystals 100 mg capsule (Macrobid) cariprazine 1.5 mg capsule See Rx Instructions .Route 06/26/23 (Vraylar) .COMPLEX #30 caps ropinirole 1 mg tablet See Rx Instructions .Route 09/10/23 .COMPLEX #90 tabs clopidogrel 75 mg tablet See Rx Instructions .Route 11/08/23 .COMPLEX #30 tabs Allergies Allergy/AdvReac Type Severity Reaction Status Date / Time No Known Allergies Allergy Verified 03/01/23 10:19 [facility] Disclaimer: The information contained in this section may have been updated after the patient was seen, as this information can be updated by other users. Medical History Renal insufficiency Valvular heart disease Palpitations Myocardial infarction HTN (hypertension), benign T2DM (type 2 diabetes mellitus) Depression CHF (congestive heart failure) Cancer Arrhythmia Anxiety Encounter for pre-operative cardiovascular clearance PAD (peripheral artery disease) Abnormal ankle brachial index (GOMEZ) PVD (peripheral vascular disease) HHD (hypertensive heart disease) Smoker HLD (hyperlipidemia) Carotid bruit Carotid artery stenosis CAD (coronary artery disease) Surgical History Hx of tonsillectomy History of mitral valve replacement S/P left atrial appendage ligation AICD (automatic cardioverter/defibrillator) present H/O tricuspid valve replacement History of coronary artery bypass graft Family History Other Cancer Diabetes Heart attack Social History Smoking Status: Current every day smoker tobacco type: cigarettes packs per day: 1 second hand exposure: Yes alcohol intake: never substance use type: marijuana current occupational status: unemployed Travel in the last 8 weeks: None household members: family housing: house number of children: 2 current occupational exposures/hazards: No caffeine: Yes Other Medical History Have you received the Flu Vaccine for this season: No Have you received the Pneumonia Vaccine: No ROS Obtained: Yes All systems reviewed & no additional complaints except as documented Physical Exam General General appearance: alert and in no apparent distress Comment: Uncomfortable appearing, tachycardic, tachypneic Head Head exam: atraumatic and normocephalic Eye Eye exam: Present normal appearance, PERRL and EOMI ENT ENT exam: Present normal exam, normal oropharynx, mucous membranes moist and normal external ear exam Neck Neck exam: Present normal inspection, full ROM and trachea midline; Absent tenderness Chest Chest inspection: Present normal inspection and symmetric chest wall rise; Absent tenderness Respiratory Respiratory exam: Present other (Tachypneic); Absent respiratory distress, wheezes, stridor or accessory muscle use Cardiovascular Cardiovascular exam: Present normal rhythm and tachycardia Abdominal Exam Abdominal exam: Present soft; Absent distention, tenderness or guarding Extremities Exam Extremities exam: Present normal inspection, full ROM and normal capillary refill; Absent tenderness or edema Back Exam Back exam: Present normal inspection and full ROM; Absent tenderness Neurological Exam Neurological exam: Present alert, oriented X3, CN II-XII intact and normal gait; Absent motor sensory deficit Psychiatric Psychiatric exam: Present anxious Skin Skin exam: Present warm and dry HEART Score HEART Score HEART Score assessment performed?: Yes History (anamnesis): Highly suspicious ECG: Non-specific disturbance Age: 45-65 years Risk factors: Atherosclerosis history Troponin: > 3x normal limit HEART Score: 8 Critical Care Critical Care Time Critical Care Time: No Medical Decision Making [place] Inquiry Pt receiving controlled substance: No Vital Signs Vital Signs: 12/11/23 20:55 12/11/23 23:00 Temperature 98.5 F 98.5 F Temperature Source Oral Oral Pulse Rate 98 H Pulse Rate [Left] 108 H Respiratory Rate 18 20 Blood Pressure 181/102 H Blood Pressure [Right Arm] 181/104 H Blood Pressure Mean [Right Arm] 129 Blood Pressure Source Automatic Cuff 02 Sat by Pulse Oximetry 97 Oxygen Delivery Method Room Air Lab Data Labs: Lab Results 12/11/23 20:57: WBC 13.2 H, RBC 4.17 L, Hgb 12.1 L, Hct 37.6, MCV 90.0, MCH 29.0, MCHC 32.3, RDW 15.9, Plt Count 291, MPV 8.6, Neut % (Auto) 85.5 H, Lymph % (Auto) 8.7 L, Converse % (Auto) 4.0, Eos % (Auto) 1.3, Baso % (Auto) 0.4, Neut # (Auto) 11.3 H, Lymph # (Auto) 1.2, Converse # (Auto) 0.5, Eos # (Auto) 0.2, Baso # (Auto) 0.1, Total Counted 100, Neutrophils % (Manual) 88 H, Lymphocytes % (Manual) 4 L, Monocytes % (Manual) 6, Eosinophils % (Manual) 1, Basophils % (Manual) 1.0, Platelet Estimate Normal, Giant Platelets 1+, Anisocytosis 1+, Macrocytosis 1+, PT 10.1, INR 0.89 L, APTT 29.7, D-Dimer 0.87 H, Sodium 137, Potassium 4.2, Chloride 112 H, Carbon Dioxide 13 L, Anion Gap 16.2 H, BUN 53 H, Creatinine 2.40 H, Estimated Creat Clear 26, Estimated GFR 21 L, Est GFR ( Amer) 25 L, Glucose 361 H, Calcium 9.3, Phosphorus 4.2, Magnesium 2.0 12/11/23 20:57: Magnesium 1.9, Total Bilirubin 0.4, AST 24, ALT 16, Alkaline Phosphatase 116, Troponin I 0.54 H, NT-Pro-B Natriuret Pep 36073 H, Total Protein 7.0, Albumin 3.8, Globulin 3.2, Albumin/Globulin Ratio 1.2, Lipase 161, TSH 3.70, Thyroxine (T4) 5.9, Acetone Level None detected, HIV 1&2 Antibody Rapid Nonreactive 12/11/23 21:20: VBG pH 7.30 L, VBG pCO2 31.8 L, VBG pO2 70.7 H, VBG HCO3 15.3 L, VBG Total CO2 16.3 L, VBG O2 Saturation 93.9 H, VBG Base Excess -11.1 L, VBG Lactic Acid 1.9 12/11/23 22:06: SARS-CoV-2 (PCR) Not detected, Influenza A Untype (PCR) Not detected, Influenza Type B (PCR) Not detected 12/11/23 20:57 12/11/23 20:57 Response Orders (Tests/Meds): ED MEDICATIONS Generic Name Dose Route Start Last Admin Trade Name Freq PRN Reason Stop Dose Admin Acetaminophen 650 mg 12/11/23 23:27 Acetaminophen 325mg Tab PO 01/10/24 23:26 Q4HP PRN Fever or Mild Pain (1-3) Furosemide 40 mg 12/12/23 09:00 Furosemide 40mg/4ml Vial IV 01/11/24 08:59 [facility] Heparin Sodium (Porcine) 5,300 unit 12/12/23 23:45 12/11/23 23:45 Heparin Sodium 5,000 Unit/Ml Vial IV 12/12/23 23:46 5,300 unit ONCE ONE Administration Heparin Sodium/Dextrose 500 mls @ 24 mls/hr 12/12/23 00:15 12/12/23 00:27 Heparin 25,000 Units In D5w 500ml Premix IV 01/11/24 00:14 24 mls/hr .[id number] BIJAN Administration 1,200 UNITS/HR Insulin Human Lispro 0 unit 12/12/23 06:00 Humalog 100 Units/Ml 10ml Vial (Ssi) SUBCUT 01/11/24 05:59 ACHS [facility] Protocol Miscellaneous 1 each 12/11/23 23:30 12/11/23 23:57 Heparin Drip Consult NOTAPPLIC 01/10/24 23:29 1 each CONSULT PHARMACY [facility] Administration Discontinued Medications Generic Name Dose Route Start Last Admin Trade Name Freq PRN Reason Stop Dose Admin Furosemide 80 mg 12/11/23 22:42 12/12/23 00:22 Furosemide 40mg/4ml Vial IV 12/11/23 22:43 80 mg ONCE ONE Administration ORDERS Category Date Time Status Cardiology Consult [Consult to Cardiology] [CONS] Cons 12/11/23 22:04 Active Routine CXR --portable [XR chest portable] Stat Exams 12/11/23 21:20 Completed Acetone, Serum (Rapid) Stat Lab 12/11/23 20:57 Completed BNP [NT Pro Brain Natriuretic Pep.] Stat Lab 12/11/23 20:57 Completed Complete Blood Count Auto Diff Stat Lab 12/11/23 20:57 Completed Comprehensive Metabolic Panel Stat Lab 12/11/23 20:57 Completed D-Dimer Stat Lab 12/11/23 20:57 Completed HIV (1&2) Antibody Rapid Stat Lab 12/11/23 20:57 Completed Hep C Ab with Reflex to RNA Stat Lab 12/11/23 20:57 Received Lipase Stat Lab 12/11/23 20:57 Completed MAG [Magnesium] Stat Lab 12/11/23 20:57 Completed Magnesium Stat Lab 12/11/23 20:57 Completed PT INR [Prothrombin Time INR] Stat Lab 12/11/23 20:57 Completed PTT [Activated Partial Thrombo Time] Stat Lab 12/11/23 20:57 Completed Phosphorous Stat Lab 12/11/23 20:57 Completed Rapid PCR Covid and Flu A/B Stat Lab 12/11/23 22:06 Completed T4 (Thyroxine) Stat Lab 12/11/23 20:57 Completed TSH [Thyroid Stimulating Hormone] Stat Lab 12/11/23 20:57 Completed Trop I [Troponin I] Stat Lab 12/11/23 20:57 Completed Troponin I Q3H Lab 12/12/23 00:21 Completed Troponin I Q3H Lab 12/12/23 03:15 Ordered VBG [Venous Blood Gas] Stat RT 12/11/23 21:20 Completed ECG Data Tracing #1: Attestation: I reviewed this ECG and interpreted as documented below: ECG Narrative: Ventricularly paced, tachycardic with a ventricular rate of 104 bpm. Does not meet Sgarbossa criteria for STEMI. ECG initial impression date: 12/11/23 ECG initial impression time: 20:55 MDM Narrative Medical Decision Narrative: In summary, this patient is a 63-year-old female presenting to the Emergency Department for evaluation of ICD firing, shortness of breath, generally feeling unwell. Differential diagnoses considered include but are not limited to ACS, dysrhythmia, acute exacerbation of CHF. Ruling out the most morbid conditions drove assessment. It should be noted patient's history includes CHF, extensive cardiovascular history which are not at goal therapy. This complicates all aspects of care by increasing patient's risk for morbidity. I reviewed patient's past medical records and noted previous evaluations by cardiology, with last evaluation back in 2022. On exam, the patient is anxious appearing, tachycardic, tachypneic. Workup included cardiac workup including troponins, BNP, chest x-ray. EKG was obtained which demonstrated tachycardia but no Sgarbossa criteria for STEMI. I independently interpreted x-ray prior to the radiologist read and noted for mild pulmonary edema. Please see their read for final interpretation. Labs were obtained that demonstrated troponin, elevated BNP, STACY. Ultimately, patient has a high heart score, has had concerning cardiac event, and has evidence of heart failure with pulmonary edema, elevated troponin, elevated BNP. She also has STACY. Given this, I feel she would benefit from admission. I had interactive discussion with cardiology Dr. Beard who advised diuresis the patient with IV Lasix. I had an interactive discussion with the hospitalist who admitted the patient for further evaluation and management.
[2023-12-11 21:25] LABS: Albumin/Globulin Ratio 1.2 (1.1-1.8); Alkaline Phosphatase 116 U/L (38-126); Bilirubin,Total 0.4 mg/dl (0.2-1.3); Calcium 9.3 mg/dl (8.4-10.2); Globulin 3.2 g/dL (1.3-3.2); Glucose 361 mg/dl (74-100); Lipase 161 U/L (23-300)
[2023-12-11 21:34] LABS: NT Pro Brain Natriuretic Pep. 12300 pg/mL (0-125)
[2023-12-11 21:38] LABS: Troponin I 0.54 ng/ml (0.00-0.034)
[2023-12-11 21:39] LABS: Acetone, Serum (Rapid) None Detected (None Detect)
[2023-12-11 21:40] LABS: Activated Partial Thrombo Time 29.7 seconds (22.8-30.6); INR 0.89 (0.9-1.1); Prothrombin Time 10.1 seconds (10.1-12.5)
[2023-12-11 21:43] LABS: Magnesium 1.9 mg/dl (1.6-2.3); Phosphorous 4.2 mg/dl (2.5-4.5)
[2023-12-11 21:49] LABS: Eosinophils % 1 % (0-3); Lymphocytes % 4 % (10-50); Monocytes % 6 % (2-9); Neutrophils % 88 % (42-76); Total Cells Counted 100
[2023-12-11 21:50] LABS: Anisocytosis 1+; Giant Platelets 1+; Macrocytosis 1+; Platelet Estimate Normal
[2023-12-11 21:50] LABS: Lactate Venous 1.9 mmol/L (0.4-2.0); VBG Base Excess -11.1 mmol/L (-2.4-2.3); VBG HCO3 15.3 mmol/L (23-30); VBG Oxygen Saturation 93.9 % (50-70); VBG PCO2 31.8 mmol/L (35-51); VBG PO2 70.7 mmol/L (28-40); VBG Total CO2 16.3 mmol/L (23-27)
[2023-12-11 21:58] LABS: D-Dimer 0.87 ug/mL (0.0-0.5)
[2023-12-11 22:00] LABS: HIV (1&2) Antibody Rapid NONREACTIVE (NONREACTIVE); T4 (Thyroxine) 5.9 ug/dl (5.53-11.0)
[2023-12-11 22:12] LABS: Coronavirus 19, PCR Not Detected (NotDetected); Influenza A, PCR Not Detected (NotDetected); Influenza B, PCR Not Detected (NotDetected)
[2023-12-11 23:00] VITALS: BP 181/102; PULSE 98; RESP 20; TEMP 36.9; O2SAT 97
--- NOTE | 2023-12-11 23:14 | PC.NURSE ---
Patient arrived to floor via wheelchair form ED at 23:07.
[2023-12-11 23:23] VITALS: PULSE 90
[2023-12-11 23:25] VITALS: BP 153/88; PULSE 92; RESP 18; TEMP 36.4; O2SAT 98; BMI 28.0
[2023-12-11] MEDS: HEPARIN SODIUM 5,000 UNIT/ML VIAL 5300 UNIT IV (23:45)
[2023-12-11] MEDS: HEPARIN DRIP CONSULT 1 EACH NOTAPPLIC (23:57)
[2023-12-12] VITALS (15 sets, daily range): BP systolic 113–134; BP diastolic 42–75; PULSE 75–90; RESP 15–24; TEMP 36.4–36.9; O2SAT 92–100; BMI 28.0
--- NOTE | 2023-12-12 | PC.NURSE ---
Unable to complete patients med rec, patient and daughter are both unaware of exactly all medications that are taken at home. Patients daughter states she will bring an updated list in the AM when she comes back to the hospital to visit.
--- NOTE | 2023-12-12 00:02 | P.HP_ITS ---
<Statement entered by Demetri Santoyo MD - 12/15/23 15:20> Personally examined the patient and agree with the plan of care outlined by BPM ARCHITECT. 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 Patient states she was in her normal state of health feeling okay when her defibrillator fired while she was eating dinner. Stated discharge twice. Denies any chest pain or shortness of breath prior to the episode. Does endorse medical noncompliance and poor medical knowledge. Has not seen cardiology in some time. Of note patient also has chronic bio prosthetic heart valve infection and is on suppressive antibiotic therapy daily. Emergency department workup notable for elevated creatinine of 2.4, elevated BNP of 12,300, troponin of 0.54, glucose of 360, D-dimer of 0.87, white count of 13.2. Mildly tachycardic in the low 100s. Chest x-ray consistent with mild interstitial prominence consistent with mild volume overload. Given her above- mentioned complaints Dr. Beard was consulted with cardiology recommends IV diuresis and will see patient in AM. She is admitted to hospital service. [facility] Disclaimer: The information contained in this section may have been updated after the patient was seen, as this information can be updated by other users. Medical History Abnormal ankle brachial index (GOMEZ) Anxiety Arrhythmia CAD (coronary artery disease) Cancer Carotid artery stenosis Carotid bruit CHF (congestive heart failure) Depression Encounter for pre-operative cardiovascular clearance HHD (hypertensive heart disease) HLD (hyperlipidemia) HTN (hypertension), benign Myocardial infarction PAD (peripheral artery disease) Palpitations PVD (peripheral vascular disease) Renal insufficiency Smoker T2DM (type 2 diabetes mellitus) Valvular heart disease Surgical History AICD (automatic cardioverter/defibrillator) present H/O tricuspid valve replacement History of coronary artery bypass graft History of mitral valve replacement Hx of tonsillectomy S/P left atrial appendage ligation Family History Other Cancer Diabetes Heart attack Social History (Updated 12/11/23 @ 23:50 by Elham Tompkins RN) Smoking Status: Current every day smoker tobacco type: cigarettes packs per day: 1 second hand exposure: Yes alcohol intake: never substance use type: marijuana current occupational status: unemployed Travel in the last 8 weeks: None household members: family housing: house number of children: 2 current occupational exposures/hazards: No caffeine: Yes Other Medical History Have you received the Flu Vaccine for this season: Yes Have you received the Pneumonia Vaccine: No Review of Systems Review of Systems Review of systems:: other Review of systems (narrative): Negative except for HPI Meds Home Medications and Allergies Home Medications ?Medication ?Instructions ?Recorded ?Confirmed ?Type levothyroxine 25 mcg tablet See Rx Instructions .Route 01/24/21 03/01/23 History .COMPLEX thyroid insulin glargine 100 30 unit SQ QAM . 08/07/22 03/01/23 History unit-lixisenatide 33 mcg/mL subcutaneous pen (Soliqua 100/33) insulin syringe-needle U-100 0.5 08/07/22 03/01/23 History mL 31 gauge x 5/16 (Easy Touch Insulin Syringe) losartan 25 mg tablet See Rx Instructions .Route 08/07/22 03/01/23 History .COMPLEX . albuterol sulfate 90 mcg/actuation 2 inh inhalation Q8H 0. #8.5 grams 08/10/22 03/01/23 Rx aerosol inhaler (Proventil HFA) insulin human U-100 NPH-regulr See Rx Instructions .Route 12/03/22 03/01/23 Rx 70-30 mix 100 unit/mL subcutaneous .COMPLEX #20 mL susp (Novolin 70/30 U-100 Insulin) dapagliflozin propanediol 5 mg See Rx Instructions .Route 01/01/23 03/01/23 Rx tablet (Farxiga) .COMPLEX #30 tabs atorvastatin 40 mg tablet See Rx Instructions .Route 01/07/23 03/01/23 Rx .COMPLEX #90 tabs aspirin 81 mg tablet,delayed See Rx Instructions .Route 02/05/23 03/01/23 Rx release .COMPLEX #90 tabs cholecalciferol (vitamin D3) 25 See Rx Instructions .Route 02/05/23 03/01/23 Rx mcg (1,000 unit) tablet .COMPLEX #90 tabs ergocalciferol (vitamin D2) 1,250 See Rx Instructions .Route 02/05/23 03/01/23 Rx mcg (50,000 unit) capsule .COMPLEX #14 caps citalopram 10 mg tablet See Rx Instructions .Route 02/08/23 03/01/23 Rx .COMPLEX #30 tabs penicillin V potassium 250 mg See Rx Instructions .Route 02/08/23 03/01/23 Rx tablet .COMPLEX #60 tabs budesonide-formoterol HFA 80 See Rx Instructions .Route 03/01/23 03/01/23 Rx mcg-4.5 mcg/actuation aerosol .COMPLEX #10.2 grams inhaler (Symbicort) insulin syringe-needle U-100 0.5 #100 ea 03/01/23 Rx mL 31 gauge x 5/16 (Easy Touch Insulin Syringe) zolpidem 5 mg tablet 5 mg PO QHS Insomnia #30 tabs 03/01/23 03/01/23 Rx nitrofurantoin 100 mg PO Q12H 10 days #20 caps 03/08/23 Rx monohydrate/macrocrystals 100 mg capsule (Macrobid) cariprazine 1.5 mg capsule See Rx Instructions .Route 06/26/23 Rx (Vraylar) .COMPLEX #30 caps ropinirole 1 mg tablet See Rx Instructions .Route 09/10/23 Rx .COMPLEX #90 tabs clopidogrel 75 mg tablet See Rx Instructions .Route 11/08/23 Rx .COMPLEX #30 tabs New Prescriptions to Start Prescriptions: Allergies Allergy/AdvReac Type Severity Reaction Status Date / Time No Known Allergies Allergy Verified 03/01/23 10:19 Exam Data for Last 24 hours Vital signs and Labs for Last 24 Hours: Temp Pulse Resp BP Pulse Ox O2 Del Method 97.6 F 92 H 18 153/88 H 98 Room Air 12/11/23 23:25 12/11/23 23:25 12/11/23 23:25 12/11/23 23:25 12/11/23 23:25 12/11/23 23:25 Laboratory Results - last 24 hr 12/11/23 20:57: WBC 13.2 H, RBC 4.17 L, Hgb 12.1 L, Hct 37.6, MCV 90.0, MCH 29.0, MCHC 32.3, RDW 15.9, Plt Count 291, MPV 8.6, Neut % (Auto) 85.5 H, Lymph % (Auto) 8.7 L, [place] % (Auto) 4.0, Eos % (Auto) 1.3, Baso % (Auto) 0.4, Neut # (Auto) 11.3 H, Lymph # (Auto) 1.2, [place] # (Auto) 0.5, Eos # (Auto) 0.2, Baso # (Auto) 0.1, Total Counted 100, Neutrophils % (Manual) 88 H, Lymphocytes % (Manual) 4 L, Monocytes % (Manual) 6, Eosinophils % (Manual) 1, Basophils % (Manual) 1.0, Platelet Estimate Normal, Giant Platelets 1+, Anisocytosis 1+, Macrocytosis 1+, PT 10.1, INR 0.89 L, APTT 29.7, D-Dimer 0.87 H, Sodium 137, Potassium 4.2, Chloride 112 H, Carbon Dioxide 13 L, Anion Gap 16.2 H, BUN 53 H, Creatinine 2.40 H, Estimated Creat Clear 26, Estimated GFR 21 L, Est GFR ( Amer) 25 L, Glucose 361 H, Calcium 9.3, Phosphorus 4.2, Magnesium 2.0 12/11/23 20:57: Magnesium 1.9, Total Bilirubin 0.4, AST 24, ALT 16, Alkaline Phosphatase 116, Troponin I 0.54 H, NT-Pro-B Natriuret Pep 25326 H, Total Protein 7.0, Albumin 3.8, Globulin 3.2, Albumin/Globulin Ratio 1.2, Lipase 161, TSH 3.70, Thyroxine (T4) 5.9, Acetone Level None detected, HIV 1&2 Antibody Rapid Nonreactive 12/11/23 21:20: VBG pH 7.30 L, VBG pCO2 31.8 L, VBG pO2 70.7 H, VBG HCO3 15.3 L, VBG Total CO2 16.3 L, VBG O2 Saturation 93.9 H, VBG Base Excess -11.1 L, VBG Lactic Acid 1.9 12/11/23 22:06: SARS-CoV-2 (PCR) Not detected, Influenza A Untype (PCR) Not detected, Influenza Type B (PCR) Not detected I & O for Last 24 hours: Intake & Output 12/09/23 12/10/23 12/11/23 12/12/23 23:59 23:59 23:59 23:59 Weight 67.268 kg Constitutional Constitutional: no acute distress *Routine HEENT Exam Head: Present normocephalic Eye: Present EOMI and PERRL ENT: Present mucous membranes moist *Routine Neck Exam Neck: Present supple; Absent lymphadenopathy *Routine Respiratory Exam Respiratory: Present CTA bilaterally *Routine Cardiovascular Exam Cardiovascular: Present RRR *Routine Abdominal Exam Abdominal: Present soft and normoactive bowel sounds; Absent tenderness *Routine Rectal Exam Rectal:: deferred *Routine Genitalia Exam Genitalia:: deferred *Routine Extremities Exam Extremities: Absent cyanosis, clubbing or edema *Routine Skin Exam Skin: Present warm; Absent rash *Routine Neurological Exam Neurological: Present alert and oriented X3 Assessment and Plan *Assessment and plan (1) Acute on chronic heart failure: Status: Acute Qualifiers: Heart failure type: unspecified Qualified Code(s): I50.9 - Heart failure, unspecified Category: Medical Code(s): I50.9 - Heart failure, unspecified (2) ICD (implantable cardioverter-defibrillator) discharge: Status: Acute Category: Medical Code(s): Z45.02 - Encounter for adjustment and management of automatic implantable cardiac defibrillator (3) Acute kidney injury superimposed on stage 3a chronic kidney disease: Status: Acute Category: Medical Code(s): N17.9 - Acute kidney failure, unspecified; N18.31 - Chronic kidney disease, stage 3a (4) SIRS (systemic inflammatory response syndrome): Status: Acute Category: Medical Code(s): R65.10 - Systemic inflammatory response syndrome (SIRS) of non-infectious origin without acute organ dysfunction (5) T2DM (type 2 diabetes mellitus): Status: Acute Qualifiers: Chronic kidney disease stage 3 subtype: stage 3a (GFR 45-59) Diabetes mellitus shelter insulin use: with termite technician use Category: Medical Code(s): E11.9 - Type 2 diabetes mellitus without complications (6) CAD (coronary artery disease): Status: Acute Qualifiers: Coronary Disease-Associated Artery/Lesion type: [place]re[place] artery Category: Medical Code(s): I25.10 - Atherosclerotic heart disease of [place]reafski coronary artery without angina pectoris Plan #ICD discharge #CAD #Acute on chronic heart failure Patient poor historian and reports medical noncompliance. States that she has not followed up with cardiology since February. Last echo in our system notable to have EF of 60 to 65%. Will repeat echo in a.m. Volume overload on chest x-ray as well as elevated BNP. Continue IV Lasix Continue home medications Cardiology consult appreciate recommendations #CAD #NSTEMI Elevated troponin of 0.[address] changes noted. Given cardiac history, will initiate heparin drip. Will make n.p.o. at midnight Cardiology consulted Continue DAPT Continue statin medication #Elevated D-dimer Unable to perform CTA given low GFR. Is on heparin drip. Consider imaging in a.m. if renal function improves #Acute kidney injury superimposed on chronic kidney disease stage IIIa Likely secondary to volume congestion. Will diurese and repeat BMP in a.m. Avoid nephrotoxic medications #T2DM with hyperglycemia Continue long-acting and sliding scale insulin #Hypothyroidism Continue thyroid medication once reconciled
[2023-12-12 00:06] LABS: PTT Heparin (inpatient only) 30.2 Seconds (50-75)
[2023-12-12] MEDS: FUROSEMIDE 40MG/4ML VIAL 80 MG IV (00:22)
[2023-12-12] MEDS: HEPARIN 25,000 UNITS/D5W 500 ML 24 UNIT IV (00:27)
[2023-12-12 00:56] LABS: Troponin I 0.74 ng/ml (0.00-0.034)
[2023-12-12 02:50] LABS: Troponin I 0.95 ng/ml (0.00-0.034)
[2023-12-12 02:54] LABS: PTT Heparin (inpatient only) 111.9 Seconds (50-75)
--- NOTE | 2023-12-12 03:02 | PC.NURSE ---
0302- Spoke with Thiago from [facility]. Received critical PTT of 111.9; Thiago stated due to high dose protocol we will not need to adjust drip at this time and to enter orders for 0400 PTT.
[2023-12-12 04:21] LABS: Basophils # 0.1 K/mm3 (0-0.2); Basophils % 0.7 % (0.1-2.0); Eosinophils # 0.3 K/mm3 (0.0-0.4); Eosinophils % 2.3 % (0.1-12.0); Hematocrit 35.2 % (37.0-47.0); Hemoglobin 11.6 g/dL (12.2-16.2); Lymphocytes # 2.3 K/mm3 (0.7-4.5); Lymphocytes % 18.5 % (10-50); Mean Corpuscular HGB Conc 32.9 g/dL (31.8-35.4); Mean Corpuscular Hemoglobin 28.9 pg (27.0-31.2); Mean Platelet Volume 9.1 fl (7.4-10.4); Monocytes # 0.5 K/mm3 (0.1-1.0); Monocytes % 4.3 % (1.7-9.3); Neutrophils # 9.1 K/mm3 (1.8-7.8); Neutrophils % 74.1 % (37.0-80.0); Platelet Count 312 K/mm3 (142-424); Red Cell Distribution Width 15.7 % (11.5-17.5); White Blood Count 12.3 K/mm3 (4.8-10.8)
[2023-12-12 04:25] LABS: Chloride 113 mmol/L (98-107); Sodium 140 mmol/L (136-145)
[2023-12-12 04:26] LABS: Potassium 3.4 mmoL/L (3.5-5.1)
[2023-12-12 04:28] LABS: Blood Urea Nitrogen 51 mg/dl (7-17); Creatinine Clearance Estimated 27 mL/min (50-200); Estimated Glomerular Filt Rate 22 ml/min (>60); GFR (African American) 26 ML/MIN (>60)
[2023-12-12 04:29] LABS: Anion Gap 16.4 mEq/L (5-15); Carbon Dioxide 14 mmol/L (22.0-30.0); Glucose 195 mg/dl (74-100)
[2023-12-12 04:54] LABS: PTT Heparin (inpatient only) 99.9 Seconds (50-75)
--- NOTE | 2023-12-12 04:58 | PC.NURSE ---
0456- Spoke with Thiago from [facility] pharmacy. Received critical PTT of 99.9; Thiago stated due to high dose protocol we will adjust heparin drip to 20mls/hr and recheck PTT at 0600
[2023-12-12] MEDS: HEPARIN 25,000 UNITS/D5W 500 ML 20 UNIT IV (05:02)
[2023-12-12 06:02] LABS: POC Glucose,Bedside 185 (70-110)
[2023-12-12] MEDS: humaLOG 100 UNITS/ML 10ML VIAL (SSI) SUBCUT ×4 (06:33→21:25)
[2023-12-12 07:01] LABS: PTT Heparin (inpatient only) 76.6 Seconds (50-75)
[2023-12-12] MEDS: HEPARIN 25,000 UNITS/D5W 500 ML 19 UNIT IV (07:39)
[2023-12-12] MEDS: ASPIRIN EC 81MG TABLET 81 MG PO (07:57)
[2023-12-12] MEDS: CLOPIDOGREL 75MG TAB 75 MG PO (07:57)
[2023-12-12] MEDS: POTASSIUM CHLORIDE 20MEQ TAB 40 MEQ PO ×2 (07:57→12:03)
[2023-12-12] MEDS: FUROSEMIDE 40MG/4ML VIAL 40 MG IV ×2 (07:57→16:20)
--- NOTE | 2023-12-12 08:05 | P.CONPHA_ITS ---
[facility] Pharmacy Heparin Dosing Demographic Data Admission date:: 12/11/23 Date: 12/12/23 Time: 08:05 Allergies Allergy/AdvReac Type Severity Reaction Status Date / Time No Known Allergies Allergy Verified 03/01/23 10:19 Height: 1.55 m Weight: 67.3 kg Indication Medication therapy:: Heparin Current Active Problems (Updated 12/16/23 @ 18:46 by Demetri Santoyo MD) Paroxysmal atrial fibrillation (Acute) STACY (acute kidney injury) (Acute) CAD (coronary artery disease) (Acute) T2DM (type 2 diabetes mellitus) (Acute) SIRS (systemic inflammatory response syndrome) (Acute) Acute kidney injury superimposed on stage 3a chronic kidney disease (Acute) Acute on chronic heart failure (Acute) Shortness of breath (Acute) CHF (congestive heart failure) (Acute) ICD (implantable cardioverter-defibrillator) discharge (Acute) CVA?: No Bleeding problem?: No Kidney disease?: No [place]?: No Desired PTT range:: 50-75 seconds Labs Anticoagulation Lab Results:: 12/11/23 12/12/23 20:57 04:15 Hgb 12.1 L 11.6 L Hct 37.6 35.2 L Plt Count 291 312 Monitoring Dose Monitor 1: Date: 12/11/23 Time: 23:42 PTT Result:: 30.2 Infusion Rate:: HEPARIN 5300 UNITS; 24 ML/HR Dose Monitor 2: Date: 12/12/23 Time: 02:20 PTT Result:: 111.9 Infusion Rate:: HEPARIN 20 ML/HR Dose Monitor 3: Date: 12/12/23 Time: 04:15 PTT Result:: 99.9 Infusion Rate:: 20 ML/HR Dose Monitor 4: Date: 12/12/23 Time: 06:08 PTT Result:: 76.6 Infusion Rate:: HEPARIN 19 ML/HR Dose Monitor 6: Date: 12/12/23 Time: 11:07 PTT Result:: 52.5 Infusion Rate:: HEPARIN 19 ML/HR Dose Monitor 7: Date: 12/12/23 Time: 17:15 PTT Result:: 43.1 Infusion Rate:: HEPARIN 22 ML/HR AND 3000 UNIT BOLUS Dose Monitor 8: Date: 12/12/23 Time: 23:02 PTT Result:: 60.1 Infusion Rate:: HEPARIN 22 ML/HR Dose Monitor 9: Date: 12/13/23 Time: 05:33 PTT Result:: 58.2 Infusion Rate:: HEPARIN 22 ML/HR Core Measures Is INR > or = 2 at discharge?: No Most Recent Labs:: Laboratory Results - last 24 hr 12/11/23 20:57: WBC 13.2 H, RBC 4.17 L, Hgb 12.1 L, Hct 37.6, MCV 90.0, MCH 29.0, MCHC 32.3, RDW 15.9, Plt Count 291, MPV 8.6, Neut % (Auto) 85.5 H, Lymph % (Auto) 8.7 L, [place] % (Auto) 4.0, Eos % (Auto) 1.3, Baso % (Auto) 0.4, Neut # (Auto) 11.3 H, Lymph # (Auto) 1.2, [place] # (Auto) 0.5, Eos # (Auto) 0.2, Baso # (Auto) 0.1, Total Counted 100, Neutrophils % (Manual) 88 H, Lymphocytes % (Manual) 4 L, Monocytes % (Manual) 6, Eosinophils % (Manual) 1, Basophils % (Manual) 1.0, Platelet Estimate Normal, Giant Platelets 1+, Anisocytosis 1+, Macrocytosis 1+, PT 10.1, INR 0.89 L, APTT 29.7, D-Dimer 0.87 H, Sodium 137, Potassium 4.2, Chloride 112 H, Carbon Dioxide 13 L, Anion Gap 16.2 H, BUN 53 H, Creatinine 2.40 H, Estimated Creat Clear 26, Estimated GFR 21 L, Est GFR ( Amer) 25 L, Glucose 361 H, Calcium 9.3, Phosphorus 4.2, Magnesium 2.0 12/11/23 20:57: Magnesium 1.9, Total Bilirubin 0.4, AST 24, ALT 16, Alkaline Phosphatase 116, Troponin I 0.54 H, NT-Pro-B Natriuret Pep 43566 H, Total Protein 7.0, Albumin 3.8, Globulin 3.2, Albumin/Globulin Ratio 1.2, Lipase 161, TSH 3.70, Thyroxine (T4) 5.9, Acetone Level None detected, HIV 1&2 Antibody Rapid Nonreactive 12/11/23 21:20: VBG pH 7.30 L, VBG pCO2 31.8 L, VBG pO2 70.7 H, VBG HCO3 15.3 L, VBG Total CO2 16.3 L, VBG O2 Saturation 93.9 H, VBG Base Excess -11.1 L, VBG Lactic Acid 1.9 12/11/23 22:06: SARS-CoV-2 (PCR) Not detected, Influenza A Untype (PCR) Not detected, Influenza Type B (PCR) Not detected 12/11/23 23:42: APTT 30.2 L 12/12/23 00:21: Troponin I 0.74 H 12/12/23 02:20: APTT 111.9 H*, Troponin I 0.95 H 12/12/23 04:15: WBC 12.3 H, RBC 4.00 L, Hgb 11.6 L, Hct 35.2 L, MCV 88.0, MCH 28.9, MCHC 32.9, RDW 15.7, Plt Count 312, MPV 9.1, Neut % (Auto) 74.1, Lymph % (Auto) 18.5, [place] % (Auto) 4.3, Eos % (Auto) 2.3, Baso % (Auto) 0.7, Neut # (Auto) 9.1 H, Lymph # (Auto) 2.3, [place] # (Auto) 0.5, Eos # (Auto) 0.3, Baso # (Auto) 0.1, APTT 99.9 H*, Sodium 140, Potassium 3.4 L, Chloride 113 H, Carbon Dioxide 14 L, Anion Gap 16.4 H, BUN 51 H, Creatinine 2.30 H, Estimated Creat Clear 27, Estimated GFR 22 L, Est GFR ( Amer) 26 L, Glucose 195 H D, Calcium 9.0 12/12/23 05:55: POC Glucose 185 H 12/12/23 06:08: APTT 76.6 H* If INR was < than 2.0 why was therapy stopped?: HEPARIN DRIP STOPPED NO WARFARIN Were Heparin and Warfarin started on the same day?: No If not, why?: STOPPED POST HEART CATH
[2023-12-12 08:52] LABS: Magnesium 1.9 mg/dl (1.6-2.3)
--- NOTE | 2023-12-12 09:48 | PC.NURSE ---
Spoke with daughter and patient about her medications and neither one of them knows exactly what she takes.
--- NOTE | 2023-12-12 10:28 | CA_ITS ---
FINAL REPORT CLINICAL HISTORY: + Dimer, PAD COMPARISON: None FINDINGS: Color Doppler, duplex Doppler and compression sonography of the bilateral lower extremities was performed. There is no evidence of deep venous thrombosis from the level of the groin to the calf. The deep veins are patent and compressible. IMPRESSION: No evidence of deep venous thrombosis bilateral lower extremities. Reviewed, Interpreted and Dictated by Edwardo Villatoro III, MD Transcribed by Yasemin Hodges Authenticated and [facility]
--- NOTE | 2023-12-12 11:21 | HMH.PHAINT1 ---
Pharmacy Intervention Comments: Home medication list verified using list from primary care physicians office
[2023-12-12] MEDS: AMIODARONE HCL 150 MG in DEXTROSE 5 % IN WATER 100 ML 618 MG IV (11:38)
[2023-12-12 11:49] LABS: PTT Heparin (inpatient only) 52.5 Seconds (50-75)
[2023-12-12] MEDS: AMIODARONE HCL 900 MG in DEXTROSE 5 % IN WATER 500 ML 34.53 MG IV (11:52)
[2023-12-12 12:40] LABS: POC Glucose,Bedside 161 (70-110)
--- NOTE | 2023-12-12 13:21 | EXP.CARD.CON ---
History of Present Illness History of Present Illness Consult date: 12/12/23 Requesting physician: Demetri Santoyo Consult reason: known to you Chief complaint: ICD shock History of present illness: 63-year-old white female established patient of our office who has not been seen in greater than 1 year due to noncompliance. She also threw away her ICD remote monitor at home so we have not been receiving readings and have attempted to contact her many times about htis. Patient has history of CAD status post CABG 2015. She also is status post bioprosthetic mitral valve replacement with chronic endocarditis on suppressive antibiotics. She is status post tricuspid valve ring repair, status post Maze procedure and left atrial appendage clip. Patient also has heart failure improved EF with last echo in August 2022 showing normal EF but she is status post ROLL TENSION TESTER-D. She had a generator change last summer and followed up for her post procedure wound care and has not been seen since then. Patient also has diabetes with A1c of 9.4. Patient and her daughter states she has been feeling well and has NYHA = 2 equivalent symptoms at baseline. Denies orthopnea palpitations lower extremity edema or chest pain. Yesterday she was ambulating through a restaurant and felt a sudden severe trauma shock in her chest. This occurred 1 more time while her daughter was with her and they presented to the emergency room for evaluation. On arrival patient had glucose of 360, white blood cell count 13,000, STACY on CKD with creatinine 2.4, baseline around 2. She was admitted overnight for observation and further workup. Pacemaker interrogation this morning confirms 3 ICD treatments yesterday for what appears to be A-fib RVR in the V-fib zone, greater than 215 bpm. Patient has no known history of atrial fibrillation. She had rising serial troponin 0.5, 0.7, 0.9. EKG is V paced at 104 bpm. A 2D echo is ordered and pending. proBNP 12,000, chest x-ray mild volume overload. [facility] Disclaimer: The information contained in this section may have been updated after the patient was seen, as this information can be updated by other users. Medical History Renal insufficiency Valvular heart disease Palpitations Myocardial infarction HTN (hypertension), benign T2DM (type 2 diabetes mellitus) Depression CHF (congestive heart failure) Cancer Arrhythmia Anxiety Encounter for pre-operative cardiovascular clearance PAD (peripheral artery disease) Abnormal ankle brachial index (GOMEZ) PVD (peripheral vascular disease) HHD (hypertensive heart disease) Smoker HLD (hyperlipidemia) Carotid bruit Carotid artery stenosis CAD (coronary artery disease) Surgical History Hx of tonsillectomy History of mitral valve replacement S/P left atrial appendage ligation AICD (automatic cardioverter/defibrillator) present H/O tricuspid valve replacement History of coronary artery bypass graft Family History Other Cancer Diabetes Heart attack Social History Smoking Status: Current every day smoker tobacco type: cigarettes packs per day: 1 second hand exposure: Yes alcohol intake: never substance use type: marijuana current occupational status: unemployed Travel in the last 8 weeks: None household members: family housing: house number of children: 2 current occupational exposures/hazards: No caffeine: Yes Review of Systems Constitutional Constitutional: Denies fatigue and Denies weakness Eyes Eyes: Denies loss of vision ENT Ears, Nose, Mouth, and Throat: Denies hearing loss and Denies vertigo *Cardiovascular Cardiovascular: Denies chest pain, Denies dyspnea and Denies syncope *Respiratory Respiratory: Denies cough and Denies dyspnea *Gastrointestinal Gastrointestinal: Denies change in stool character, Denies nausea and Denies vomiting *Musculoskeletal Musculoskeletal: Denies muscle weakness Integumentary/Breasts Skin/Breast: Denies changing lesions *Neurologic Neurologic: Denies loss of vision, Denies syncope, Denies vertigo and Denies weakness Endocrine Endocrine: Denies fatigue Exam Data for Last 24 hours Vital signs and Labs for Last 24 Hours: Temp Pulse Resp BP Pulse Ox O2 Del Method 97.5 F L 79 16 125/71 99 Room Air 12/12/23 07:55 12/12/23 12:00 12/12/23 12:00 12/12/23 12:00 12/12/23 12:00 12/12/23 12:00 Laboratory Results - last 24 hr 12/11/23 20:57: WBC 13.2 H, RBC 4.17 L, Hgb 12.1 L, Hct 37.6, MCV 90.0, MCH 29.0, MCHC 32.3, RDW 15.9, Plt Count 291, MPV 8.6, Neut % (Auto) 85.5 H, Lymph % (Auto) 8.7 L, [place] % (Auto) 4.0, Eos % (Auto) 1.3, Baso % (Auto) 0.4, Neut # (Auto) 11.3 H, Lymph # (Auto) 1.2, [place] # (Auto) 0.5, Eos # (Auto) 0.2, Baso # (Auto) 0.1, Total Counted 100, Neutrophils % (Manual) 88 H, Lymphocytes % (Manual) 4 L, Monocytes % (Manual) 6, Eosinophils % (Manual) 1, Basophils % (Manual) 1.0, Platelet Estimate Normal, Giant Platelets 1+, Anisocytosis 1+, Macrocytosis 1+, PT 10.1, INR 0.89 L, APTT 29.7, D-Dimer 0.87 H, Sodium 137, Potassium 4.2, Chloride 112 H, Carbon Dioxide 13 L, Anion Gap 16.2 H, BUN 53 H, Creatinine 2.40 H, Estimated Creat Clear 26, Estimated GFR 21 L, Est GFR ( Amer) 25 L, Glucose 361 H, Calcium 9.3, Phosphorus 4.2, Magnesium 2.0 12/11/23 20:57: Magnesium 1.9, Total Bilirubin 0.4, AST 24, ALT 16, Alkaline Phosphatase 116, Troponin I 0.54 H, NT-Pro-B Natriuret Pep 08074 H, Total Protein 7.0, Albumin 3.8, Globulin 3.2, Albumin/Globulin Ratio 1.2, Lipase 161, TSH 3.70, Thyroxine (T4) 5.9, Acetone Level None detected, HIV 1&2 Antibody Rapid Nonreactive 12/11/23 21:20: VBG pH 7.30 L, VBG pCO2 31.8 L, VBG pO2 70.7 H, VBG HCO3 15.3 L, VBG Total CO2 16.3 L, VBG O2 Saturation 93.9 H, VBG Base Excess -11.1 L, VBG Lactic Acid 1.9 12/11/23 22:06: SARS-CoV-2 (PCR) Not detected, Influenza A Untype (PCR) Not detected, Influenza Type B (PCR) Not detected 12/11/23 23:42: APTT 30.2 L 12/12/23 00:21: Troponin I 0.74 H 12/12/23 02:20: APTT 111.9 H*, Troponin I 0.95 H 12/12/23 04:15: WBC 12.3 H, RBC 4.00 L, Hgb 11.6 L, Hct 35.2 L, MCV 88.0, MCH 28.9, MCHC 32.9, RDW 15.7, Plt Count 312, MPV 9.1, Neut % (Auto) 74.1, Lymph % (Auto) 18.5, [place] % (Auto) 4.3, Eos % (Auto) 2.3, Baso % (Auto) 0.7, Neut # (Auto) 9.1 H, Lymph # (Auto) 2.3, [place] # (Auto) 0.5, Eos # (Auto) 0.3, Baso # (Auto) 0.1, APTT 99.9 H*, Sodium 140, Potassium 3.4 L, Chloride 113 H, Carbon Dioxide 14 L, Anion Gap 16.4 H, BUN 51 H, Creatinine 2.30 H, Estimated Creat Clear 27, Estimated GFR 22 L, Est GFR ( Amer) 26 L, Glucose 195 H D, Calcium 9.0 12/12/23 05:55: POC Glucose 185 H 12/12/23 06:08: APTT 76.6 H*, Magnesium 1.9 12/12/23 11:07: APTT 52.5 12/12/23 11:50: POC Glucose 161 H I & O for Last 24 hours: Intake & Output 12/09/23 12/10/23 12/11/23 12/12/23 23:59 23:59 23:59 23:59 Output Total 2800 / 2800 Balance -2800 / -2800 Weight 148 lb 4.8 oz 148 lb 5.938 oz Constitutional Constitutional: no acute distress and cooperative *Routine HEENT Exam Eye: Present PERRL *Routine Respiratory Exam Respiratory: Present CTA bilaterally; Absent accessory muscle use, wheezes or crackles *Routine Cardiovascular Exam Cardiovascular: Present RRR, Normal S1 and Normal S2; Absent murmur, gallop or rubs Comments: ICD noted left chest *Routine Abdominal Exam Abdominal: Present soft; Absent tenderness *Routine Extremities Exam Extremities: Present pulses intact; Absent cyanosis or edema *Routine Skin Exam Skin: Present intact; Absent erythema or wounds *Routine Neurological Exam Neurological: Present alert and oriented X3 Routine Psychiatric Exam Psychiatric: Present cooperative Meds Home Medications and Allergies Home Medications ?Medication ?Instructions ?Recorded ?Confirmed ?Type alprazolam 0.5 mg tablet 0.5 mg PO BIDP PRN Anxiety 12/12/23 12/12/23 History aspirin 81 mg tablet,delayed 81 mg PO DAILY 12/12/23 12/12/23 History release atorvastatin 40 mg tablet 40 mg PO HS 12/12/23 12/12/23 History cholecalciferol (vitamin D3) 25 25 mcg PO DAILY 12/12/23 12/12/23 History mcg (1,000 unit) tablet citalopram 20 mg tablet 20 mg PO DAILY 12/12/23 12/12/23 History clopidogrel 75 mg tablet 75 mg PO DAILY 12/12/23 12/12/23 History dapagliflozin propanediol 5 mg 5 mg PO DAILY 12/12/23 12/12/23 History tablet (Farxiga) ergocalciferol (vitamin D2) 1,250 1,250 mcg PO WEEKLY 12/12/23 12/12/23 History mcg (50,000 unit) capsule insulin glargine 100 unit/mL (3 8 unit SQ HS 12/12/23 12/12/23 History mL) subcutaneous pen (Lantus Solostar U-100 Insulin) insulin human U-100 NPH-regulr 6 unit SQ BID 12/12/23 12/12/23 History 70-30 mix 100 unit/mL subcutaneous susp (Novolin 70/30 U-100 Insulin) losartan 25 mg tablet 25 mg PO DAILY 12/12/23 12/12/23 History trazodone 50 mg tablet 50 mg PO HS 12/12/23 12/12/23 History New Prescriptions to Start Prescriptions: Allergies Allergy/AdvReac Type Severity Reaction Status Date / Time No Known Allergies Allergy Verified 03/01/23 10:19 Assessment and Plan *Assessment and plan (1) Acute on chronic heart failure: Status: Acute Qualifiers: Heart failure type: unspecified Qualified Code(s): I50.9 - Heart failure, unspecified Category: Medical Code(s): I50.9 - Heart failure, unspecified (2) ICD (implantable cardioverter-defibrillator) discharge: Status: Acute Category: Medical Code(s): Z45.02 - Encounter for adjustment and management of automatic implantable cardiac defibrillator (3) Acute kidney injury superimposed on stage 3a chronic kidney disease: Status: Acute Category: Medical Code(s): N17.9 - Acute kidney failure, unspecified; N18.31 - Chronic kidney disease, stage 3a (4) SIRS (systemic inflammatory response syndrome): Status: Acute Category: Medical Code(s): R65.10 - Systemic inflammatory response syndrome (SIRS) of non-infectious origin without acute organ dysfunction (5) T2DM (type 2 diabetes mellitus): Status: Acute Qualifiers: Diabetes mellitus senior care insulin use: with salvage determiner use Chronic kidney disease stage 3 subtype: stage 3a (GFR 45-59) Category: Medical Code(s): E11.9 - Type 2 diabetes mellitus without complications (6) CAD (coronary artery disease): Status: Acute Qualifiers: Coronary Disease-Associated Artery/Lesion type: [place] artery Category: Medical Code(s): I25.10 - Atherosclerotic heart disease of [place] coronary artery without angina pectoris (7) Paroxysmal atrial fibrillation: Status: Acute Category: Medical Code(s): I48.0 - Paroxysmal atrial fibrillation Plan A-fib with RVR >215bpm resulting in ICD discharge x3 12/11/23 - s/p MAZE and MILLY clip 2022 - device download indicates A-fib burden is only 1.2% - she is not on BB at home, will hold for now due to concurrent CHF, pulm edema - start Amiodarone - no OAC required due to MILLY clip Acute on Chronic HFrEF - EF had improved to 55% 08/2023, now here with vol overload and EF 40-45% with new severe hypokinesis of apical LV wall - start ARB. Hold ARNI, MRA, SGLT-2 with STACY on CKD III, GFR currently 22 - will need [facility] this admission to asses for new ischemia NSTEMI in setting of MV-CAD s/p CABG 2022 - pt denies angina but has new A-fib RVR, new regional wall motion changes, and rising serial troponin - EKG is v-paced - cont ASA, Plavix, Heparin, Statin - no BB due to ALSHF - C tomorrow if renal function stable s/p bioprosthetic MVR with chronic endocarditis - pt on chronic PCN BID - ECHO here shows acceptable gradients, no vegetation s/p Tricuspid Ring Repair - moderate TR on ECHO here Leukocytosis - marginal, 12-13 - trend - no known infection *CV stable, meds adjusted, will plan for LHC tomorrow to assess for new ischemia in setting of NSTEMI
[2023-12-12] MEDS: IRBESARTAN 75MG TABLET 75 MG PO (16:20)
[2023-12-12 16:28] LABS: POC Glucose,Bedside 180 (70-110)
[2023-12-12 17:41] LABS: PTT Heparin (inpatient only) 43.1 Seconds (50-75)
--- NOTE | 2023-12-12 17:44 | PC.NURSE ---
1741 called and spoke with Stephanie in [facility]. pt PTT 43.1 new orders: increase heparin drip to 1100units per hour bolus 3000 units of heparin new PTT to be drawn at 2300. orders to be entered by Stephanie
[2023-12-12] MEDS: HEPARIN SODIUM 5,000 UNIT/ML VIAL 3000 UNIT IV (18:00)
[2023-12-12] MEDS: ATORVASTATIN 40MG TABLET 40 MG PO (21:24)
[2023-12-12 21:35] LABS: POC Glucose,Bedside 244 (70-110)
--- NOTE | 2023-12-12 23:31 | CA_ITS ---
APPROVED REPORT EXAM: Comprehensive 2D, Doppler, and color-flow Echocardiogram Supervisor Spinning: Belen Art CRT Ht: 5 ft 1 in Wt: 148lbs BSA: 1.66 BP: 140/67 mmHg Indications: MVR, CHF, CABG, DEFIB FIRED TWICE 12/11/23, PAD, PVD, CKD, BLADDER CA 2006, CHRONIC BIO-PROSTHETIC VALVE INFECTON ON SUPPRESSIVE ANTIBIOTICS DAILY 2D Dimensions LA Volume 34.70 mL LA Volume Index 20.90 mL/m2 (M/F) 16-34 M-Mode Dimensions RVDd 2.41 cm (0.9-2.6) LA Diam 4.23 cm (1.9-4.0) LVDd 4.89 cm (3.5-5.7) LVDs 3.18 cm (3.5-5.7) IVSd 1.07 cm (0.6-1.1) PWd 0.77 cm (0.6-1.1) EF (Teich) 64.10% FS 35.00% EDV (Teich) 112.30 mL TAPSE 1.18 (<1.7) ESV (Teich) 40.30 mL LV Diastology E Decel Time 213 (160-240 msec) E/A Ratio 2.7 MED A' 8.90 cm/s LAT A' 3.60 cm/s Aortic Valve AI PHT 144.00 ms AO Peak GR. 5.90 mmHg Mitral Valve MV E Max Damien. 191.0 (40-130 cm/s) MV A Velocity 70.0 (40-130 cm/s) E/A Ratio 2.72 MV Mean Gr. 5.40 (<2mmHg) MV PHT 62.0 ms Pulmonary Valve PV Peak Velocity 151.0 (50-150 cm/s) Tricuspid Valve TR P. Velocity 317.00 cm/s RAP Estimate 10.00 mmHg RVSP 50.20 mmHg Left Ventricle The left ventricle is normal size. Left ventricular systolic function is mildly decreased. There is increased LV wall thickness. There is severe hypokinesis of the apical LV wall, as well as the mid to distal anterior and anterolateral LV cid. Diastolic function is indeterminate in the setting of prior MVR. LVEF is 40-45%. Right Ventricle The right ventricle is mildly dilated. The right ventricular systolic function is normal. There is a device lead in the right ventricle. Atria The left atrium is moderately dilated. The right atrium size is normal. There is no Doppler evidence of interatrial shunt. Aortic Valve The aortic valve is mildly thickened. There is no aortic valvular stenosis. No aortic regurgitation is present. Mitral Valve s/p bioprosthetic MVR. The prosthesis is well-seated. Mean MV gradient 6 mmHg (HR 79 bpm). Peak AV velocity 191 cm/s. PHT is 70 ms. Trace central mitral regurgitation. Tricuspid Valve Tricuspid valve is grossly normal in structure and function. Moderate tricuspid regurgitation. RVSP is 30-35 mmHg. Pulmonic Valve The pulmonary valve is normal in structure. Mild pulmonic regurgitation. The ascending aorta is not well-visualized. Great Vessels The aortic root is normal in size. IVC is normal in size and collapses >50% with inspiration. Pericardium There is no pericardial effusion. Other Information Study Quality: Fair Conclusion Mildly reduced LV systolic function (LVEF 40-45%). Severe hypokinesis of the apical LV wall, as well as the mid to distal anterior and anterolateral LV cid. Mild RV dilation with normal RV function. Moderate LA dilation. s/p bioprosthetic MVR. Acceptable transmitral gradients (mean MV gradient 6 mmHg (HR 79 bpm). Peak AV velocity 191 cm/s. PHT is 70 ms). Moderate TR. Mild PI. RVSP 30-35 mmHg. When directly compared to prior study from 06/2012, the MV gradients are overall unchanged. The reduction in LVEF and regional wall motion abnormalities are new. Electronically signed by : Deanna Fowler MD 12/12/2023 11:49:36
[2023-12-12 23:36] LABS: PTT Heparin (inpatient only) 60.1 Seconds (50-75)
--- NOTE | 2023-12-12 23:41 | PC.NURSE ---
Spoke with Thiago at [facility]. Heparin results indicate that gtt should maintain at current dose of 1100 units/hr, no change. Next ptt draw placed/ordered for 0500.
[2023-12-12] MEDS: HEPARIN 25,000 UNITS/D5W 500 ML 22 UNIT IV (23:58)
[2023-12-13] VITALS (90 sets, daily range): BP systolic 111–168; BP diastolic 43–80; PULSE 60–78; RESP 16–20; TEMP 36.4–36.9; O2SAT 96–100; BMI 28.0
[2023-12-13] MEDS: IPRATROPIUM BROMIDE 0.5 MG/2.5ML SOLUTION IH (05:12)
[2023-12-13 06:29] LABS: POC Glucose,Bedside 232 (70-110)
[2023-12-13] MEDS: humaLOG 100 UNITS/ML 10ML VIAL (SSI) SUBCUT (06:30)
[2023-12-13 07:01] LABS: PTT Heparin (inpatient only) 58.2 Seconds (50-75)
[2023-12-13] MEDS: FUROSEMIDE 40MG/4ML VIAL 40 MG IV (08:37)
[2023-12-13] MEDS: ASPIRIN EC 81MG TABLET 81 MG PO (08:37)
[2023-12-13] MEDS: CLOPIDOGREL 75MG TAB 75 MG PO (08:37)
[2023-12-13] MEDS: IRBESARTAN 75MG TABLET 75 MG PO (08:37)
[2023-12-13 08:48] LABS: Albumin Level 3.6 g/dl (3.5-5.0); Chloride 111 mmol/L (98-107); Sodium 138 mmol/L (136-145)
[2023-12-13 08:51] LABS: Alanine Aminotransferase 11 U/L (12-78); Albumin/Globulin Ratio 1.2 (1.1-1.8); Alkaline Phosphatase 107 U/L (38-126); Aspartate Amino Transferase 16 U/L (14-36); Basophils # 0.1 K/mm3 (0-0.2); Basophils % 0.9 % (0.1-2.0); Bilirubin,Total 0.5 mg/dl (0.2-1.3); Blood Urea Nitrogen 55 mg/dl (7-17); Calcium 8.4 mg/dl (8.4-10.2); Carbon Dioxide 13 mmol/L (22.0-30.0); Creatinine Clearance Estimated 25 mL/min (50-200); Eosinophils # 0.3 K/mm3 (0.0-0.4); Eosinophils % 2.3 % (0.1-12.0); Estimated Glomerular Filt Rate 20 ml/min (>60); GFR (African American) 24 ML/MIN (>60); Globulin 2.9 g/dL (1.3-3.2); Glucose 188 mg/dl (74-100); Hematocrit 38.1 % (37.0-47.0); Hemoglobin 12.3 g/dL (12.2-16.2); Lymphocytes # 2.2 K/mm3 (0.7-4.5); Lymphocytes % 17.4 % (10-50); Mean Corpuscular HGB Conc 32.2 g/dL (31.8-35.4); Mean Corpuscular Hemoglobin 29.3 pg (27.0-31.2); Mean Corpuscular Volume 90.8 fl (81-99); Mean Platelet Volume 8.7 fl (7.4-10.4); Monocytes # 0.6 K/mm3 (0.1-1.0); Monocytes % 4.5 % (1.7-9.3); Neutrophils # 9.4 K/mm3 (1.8-7.8); Platelet Count 309 K/mm3 (142-424); Red Blood Count 4.19 M/mm3 (4.20-5.40); Total Protein,Serum 6.5 g/dl (6.3-8.2); White Blood Count 12.6 K/mm3 (4.8-10.8)
[2023-12-13 09:15] LABS: HCV Ab Non Reactive (Non Reactive)
[2023-12-13 11:21] LABS: POC Glucose,Bedside 172 (70-110)
[2023-12-13] MEDS: AMIODARONE 200MG TABLET 400 MG PO ×2 (12:24→20:45)
--- NOTE | 2023-12-13 13:03 | IR_ITS ---
APPROVED REPORT Patient Location: Inpatient PROCEDURES Selective coronary angiogram Selective engagement of the left internal mammary artery Selective engagement of the saphenous vein graft to the LAD Selective engagement of the saphenous vein graft to the posterior descending artery Drug-eluting stent deployment to the saphenous vein graft supplying the left anterior descending artery Drug-eluting stent deployment to the saphenous vein graft supplying the posterior descending artery INDICATION Coronary artery disease, History of coronary artery bypass surgery, Acute non-ST elevation myocardial infarction Informed consent was obtained prior to the procedure. COMPLICATIONS NONE Estimated Blood Loss: LESS THAN 10 ML TECHNIQUE One percent lidocaine used to anesthetize the right groin. The right femoral artery was accessed via the Seldinger technique and a 5 [place] sheath was placed in the right femoral artery. A JL 4, JR4 catheter were used to perform left heart catheterization, left ventriculogram selective coronary angiography as well as selective engagement of the 2 vein grafts and the left internal mammary artery. At the end the diagnostic angiogram therapeutic heparin was administered given a therapeutic ACT and the 5 [place] sheath was exchanged for a 6 [place] sheath. A LCB guide catheter was placed in the saphenous vein graft supplying the LAD and the posterior descending artery. Wires were placed on the Y graft 1 in the LAD limb and the other in the PDA limb. A 3 mm x 12 mm [place] frontier stent was deployed in the saphenous vein graft supplying the posterior descending artery and deployed at 20 alexus. This was deployed at the origin of the vein graft. Wide patency was established following stenting of the saphenous vein graft. Following this a 3.5 x 38 mm [place] frontier stent was then placed at the origin of the saphenous vein graft supplying the left anterior descending artery. This was deployed at 18 alexus. Following stent deployment there was a scant amount of extravasation therefore a 3.5 x 12 mm noncompliant balloon was deployed at 8 alexus for 5 minutes which sealed the extravasation. Patient tolerated the procedure with no hemodynamic or electrical compromise. At the end of the procedure the apparatus was removed the sheath was left in place patient was transferred to the postop putting in stable condition ANGIOGRAPHIC RESULTS The left main artery Has distal calcified 50% stenosis The left anterior descending artery Is proximally patent and then has subtotal occlusion at mid vessel. Competitive flow is identified from the vein graft which anastomoses different distally The circumflex artery Nondominant yet still large with proximal 40% mid vessel calcified 50% stenosis. The second obtuse marginal artery is large and has proximal 40 and mid vessel 50% stenosis The right coronary artery Dominant proximally occluded The HOPPER ventriculogram reveals Not performed The left ventricular end-diastolic pressure Not measured GAY is occluded There is a solitary vein graft in the ascending aorta which is a Y graft. 1 limb supplies the LAD and has a proximal complex 80 and 90% stenosis. The other branch of this Y graft is also large and supplies the posterior descending artery and has an ostial 90% concentric stenosis IMPRESSION Critical disease in a large Y graft which supplies both the LAD and posterior descending artery Successful stenting of the saphenous vein graft supplying the posterior descending artery critical disease reduced to 0% with 1 drug-eluting stent Successful stenting of the saphenous vein graft supplying the left anterior descending artery critical disease reduced to 0% with 1 drug-eluting stent PLAN 1. Dual antiplatelet therapy 2. Manual pull for the right femoral arterial sheath with close observation overnight 3. Chemistry panel in the morning to evaluate for potential contrast nephropathy 4. LDL less than 55 to achieve that high intensity statin 5. Avoidance of tobacco products 6. Risk factor modification Electronically signed by : Mehul Beard MD 12/13/2023 15:03:08
[2023-12-13] MEDS: diphenhydrAMINE 50MG/ML VIAL 50 MG IV (14:20)
[2023-12-13] MEDS: MIDAZOLAM HCL 1MG/ML 5ML VIAL 1 MG IV (14:21)
[2023-12-13] MEDS: LIDOCAINE 1% 10ML MDV 20 ML IJ (14:21)
[2023-12-13] MEDS: HEPARIN 1,000 UNITS/500ML NS (CATH LAB) 3000 UNIT IV (14:22)
[2023-12-13] MEDS: FENTANYL 100MCG/2ML VIAL 50 MCG IV (14:22)
[2023-12-13] MEDS: 0.9 % SODIUM CHLORIDE 500 ML 25 ML IV (14:22)
[2023-12-13] MEDS: IOPAMIDOL-370 (76%);100ML BOTTLE 35 ML IV (15:14)
[2023-12-13 15:16] LABS: CATHL Activated Clotting Time 330 SEC (74-125)
[2023-12-13 16:39] LABS: POC Glucose,Bedside 154 (70-110)
[2023-12-13] MEDS: ATORVASTATIN 40MG TABLET 40 MG PO (20:45)
[2023-12-13 21:27] LABS: POC Glucose,Bedside 94 (70-110)
--- NOTE | 2023-12-13 21:47 | P.PN_ITS ---
Subjective *Date: 12/15/23 *Time: 16:08 Interval history: Patient is doing well after [facility] today. No bleeding and right femoral site. Received 2 stents. Exam Data for Last 24 hours Vital signs and Labs for Last 24 Hours: Temp Pulse Resp BP Pulse Ox O2 Del Method 98.2 F 78 18 158/71 H 97 Room Air 12/13/23 20:20 12/13/23 21:20 12/13/23 21:20 12/13/23 21:20 12/13/23 21:20 12/13/23 21:20 Laboratory Results - last 24 hr 12/11/23 20:57: Hepatitis C Antibody Non reactive 12/12/23 23:02: APTT 60.1 12/13/23 05:33: WBC 12.6 H, RBC 4.19 L, Hgb 12.3, Hct 38.1, MCV 90.8, MCH 29.3, MCHC 32.2, RDW 16.0, Plt Count 309, MPV 8.7, Neut % (Auto) 75.0, Lymph % (Auto) 17.4, [place] % (Auto) 4.5, Eos % (Auto) 2.3, Baso % (Auto) 0.9, Neut # (Auto) 9.4 H, Lymph # (Auto) 2.2, [place] # (Auto) 0.6, Eos # (Auto) 0.3, Baso # (Auto) 0.1, APTT 58.2, Sodium 138, Potassium 4.0, Chloride 111 H, Carbon Dioxide 13 L, Anion Gap 18.0 H, BUN 55 H, Creatinine 2.50 H, Estimated Creat Clear 25, Estimated GFR 20 L, Est GFR ( Amer) 24 L, Glucose 188 H, Calcium 8.4, Total Bilirubin 0.5, AST 16 D, ALT 11 L D, Alkaline Phosphatase 107, Total Protein 6.5, Albumin 3.6, Globulin 2.9, Albumin/Globulin Ratio 1.2 12/13/23 06:22: POC Glucose 232 H 12/13/23 11:13: POC Glucose 172 H 12/13/23 14:35: Activated Clotting Time 330 H* 12/13/23 16:33: POC Glucose 154 H 12/13/23 20:46: POC Glucose 94 I & O for Last 24 hours: Intake & Output 12/10/23 12/11/23 12/12/23 12/13/23 23:59 23:59 23:59 23:59 Intake Total 898 / 1324 656 / 656 Output Total 4000 / 4000 1140 / 1140 Balance -3102 / -2676 -484 / -484 Weight 67.268 kg 67.3 kg 67.3 kg Constitutional Constitutional: no acute distress *Routine HEENT Exam Head: Present normocephalic Eye: Present EOMI and PERRL ENT: Present mucous membranes moist *Routine Neck Exam Neck: Present supple; Absent lymphadenopathy *Routine Respiratory Exam Respiratory: Present CTA bilaterally *Routine Cardiovascular Exam Cardiovascular: Present RRR *Routine Abdominal Exam Abdominal: Present soft and normoactive bowel sounds; Absent tenderness *Routine Extremities Exam Extremities: Present edema; Absent cyanosis or clubbing *Routine Skin Exam Skin: Present warm; Absent rash *Routine Neurological Exam Neurological: Present alert and oriented X3 Assessment and Plan *Assessment and plan (1) Acute on chronic heart failure: Status: Acute Qualifiers: Heart failure type: unspecified Qualified Code(s): I50.9 - Heart failure, unspecified Category: Medical Code(s): I50.9 - Heart failure, unspecified (2) ICD (implantable cardioverter-defibrillator) discharge: Status: Acute Category: Medical Code(s): Z45.02 - Encounter for adjustment and management of automatic implantable cardiac defibrillator (3) Acute kidney injury superimposed on stage 3a chronic kidney disease: Status: Acute Category: Medical Code(s): N17.9 - Acute kidney failure, unspecified; N18.31 - Chronic kidney disease, stage 3a (4) SIRS (systemic inflammatory response syndrome): Status: Acute Category: Medical Code(s): R65.10 - Systemic inflammatory response syndrome (SIRS) of non-infectious origin without acute organ dysfunction (5) T2DM (type 2 diabetes mellitus): Status: Acute Qualifiers: Chronic kidney disease stage 3 subtype: stage 3a (GFR 45-59) Diabetes mellitus [employer] insulin use: with [employer] use Category: Medical Code(s): E11.9 - Type 2 diabetes mellitus without complications (6) CAD (coronary artery disease): Status: Acute Qualifiers: Coronary Disease-Associated Artery/Lesion type: [place] artery Category: Medical Code(s): I25.10 - Atherosclerotic heart disease of [place] coronary artery without angina pectoris Plan #CAD #NSTEMI #Acute on chronic HFrEF Elevated troponin of 0.[address] changes noted. Given cardiac history, started on heparin drip. ECHO reveals LVEF 40 to 45%, new severe hypokinesis of apical LV wall. Cardiology consulted, proceeded with [facility] today. S/p 2 SHANNAN in vein grafts LAD, PDA on 12/13/2023. Continue aspirin 81 mg, Plavix 75 mg, atorvastatin 40 mg. Continue irbesartan. Hold ARNI, MRA, SGLT-2 with STACY on CKD III, GFR currently 22. IV Lasix 40 mg twice daily with appropriate diuresis. Plan to transition to p.o. Lasix 40 mg tomorrow. Will monitor for 24 hours, if stable tomorrow anticipate discharge. #ICD discharge #A-fib with RVR >215bpm resulting in ICD discharge x3 12/11/23 - s/p MAZE and MILLY clip 2022 - device interrogation indicates A-fib burden is only 1.2% - Started on IV amiodarone, transitioned to p.o. amiodarone 400 mg twice daily. - no OAC required due to MILLY clip #Elevated D-dimer - D-dimer 0.87. However, Wells score 0. Low suspicion for PE at this time. #Acute kidney injury superimposed on chronic kidney disease stage IIIa Creatinine 2.6, baseline 2.3. In the setting of cardiorenal third spacing. Diuresis as above. Continue monitor renal function. #T2DM with hyperglycemia Continue long-acting and sliding scale insulin #Hypothyroidism Continue levothyroxine
[2023-12-14] VITALS: PULSE 70
[2023-12-14 00:50] VITALS: BP 136/66; PULSE 71; RESP 18; TEMP 36.7; O2SAT 99
[2023-12-14 01:50] VITALS: BP 105/50; PULSE 71; RESP 18; O2SAT 98
[2023-12-14 04:00] VITALS: BP 107/50; PULSE 60; PULSE 72; RESP 16; TEMP 36.6; O2SAT 97; BMI 26.8
[2023-12-14] MEDS: humaLOG 100 UNITS/ML 10ML VIAL (SSI) SUBCUT ×2 (05:43→11:53)
[2023-12-14 05:47] LABS: POC Glucose,Bedside 223 (70-110)
[2023-12-14 06:35] LABS: PTT Heparin (inpatient only) 29.6 Seconds (50-75)
[2023-12-14 07:48] LABS: Basophils # 0.1 K/mm3 (0-0.2); Basophils % 0.8 % (0.1-2.0); Chloride 111 mmol/L (98-107); Eosinophils # 0.3 K/mm3 (0.0-0.4); Eosinophils % 1.9 % (0.1-12.0); Hematocrit 36.5 % (37.0-47.0); Hemoglobin 12.1 g/dL (12.2-16.2); Lymphocytes # 2.1 K/mm3 (0.7-4.5); Lymphocytes % 15.4 % (10-50); Mean Corpuscular HGB Conc 33.2 g/dL (31.8-35.4); Mean Corpuscular Hemoglobin 29.6 pg (27.0-31.2); Mean Corpuscular Volume 89.1 fl (81-99); Mean Platelet Volume 8.2 fl (7.4-10.4); Monocytes # 0.7 K/mm3 (0.1-1.0); Monocytes % 5.4 % (1.7-9.3); Neutrophils # 10.3 K/mm3 (1.8-7.8); Neutrophils % 76.4 % (37.0-80.0); Platelet Count 323 K/mm3 (142-424); Red Cell Distribution Width 16.1 % (11.5-17.5); White Blood Count 13.5 K/mm3 (4.8-10.8)
[2023-12-14 07:49] LABS: Albumin Level 3.6 g/dl (3.5-5.0); Potassium 4.7 mmoL/L (3.5-5.1); Sodium 135 mmol/L (136-145)
[2023-12-14 07:51] LABS: Blood Urea Nitrogen 58 mg/dl (7-17); Creatinine Clearance Estimated 21 mL/min (50-200); Estimated Glomerular Filt Rate 17 ml/min (>60); GFR (African American) 21 ML/MIN (>60)
[2023-12-14 07:52] LABS: Alanine Aminotransferase 10 U/L (12-78); Albumin/Globulin Ratio 1.2 (1.1-1.8); Alkaline Phosphatase 108 U/L (38-126); Anion Gap 15.7 mEq/L (5-15); Aspartate Amino Transferase 15 U/L (14-36); Bilirubin,Total 0.5 mg/dl (0.2-1.3); Calcium 8.8 mg/dl (8.4-10.2); Carbon Dioxide 13 mmol/L (22.0-30.0); Globulin 2.9 g/dL (1.3-3.2); Glucose 206 mg/dl (74-100); Total Protein,Serum 6.5 g/dl (6.3-8.2)
[2023-12-14 08:00] VITALS: BP 122/61; PULSE 76; PULSE 80; RESP 18; TEMP 36.4; O2SAT 97
[2023-12-14 08:05] LABS: Cholesterol 184 mg/dl (140-200); Triglycerides 210 mg/dl (30-150); VLDL Cholesterol 42 mg/dL (0-40)
[2023-12-14 08:06] LABS: Chol/HDL Ratio 8.8 (1-3.5); HDL Cholesterol 21 mg/dl (40-60)
[2023-12-14] MEDS: AMIODARONE 200MG TABLET 400 MG PO (08:10)
[2023-12-14] MEDS: FUROSEMIDE 40MG/4ML VIAL 40 MG IV (08:11)
[2023-12-14] MEDS: ASPIRIN EC 81MG TABLET 81 MG PO (08:11)
[2023-12-14] MEDS: CLOPIDOGREL 75MG TAB 75 MG PO (08:11)
[2023-12-14] MEDS: IRBESARTAN 75MG TABLET 75 MG PO (08:12)
[2023-12-14 08:16] LABS: Direct LDL Cholesterol 138.35 mg/dL (100-129)
[2023-12-14 08:27] LABS: Hemoglobin A1C 7.6 % (4.0-6.0)
[2023-12-14 12:00] VITALS: BP 128/66; PULSE 79; PULSE 80; RESP 16; TEMP 36.6; O2SAT 97
--- NOTE | 2023-12-14 12:13 | P.DS_ITS ---
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 Patient states she was in her normal state of health feeling okay when her defibrillator fired while she was eating dinner. Stated discharge twice. Denies any chest pain or shortness of breath prior to the episode. Does endorse medical noncompliance and poor medical knowledge. Has not seen cardiology in some time. Of note patient also has chronic bio prosthetic heart valve infection and is on suppressive antibiotic therapy daily. Emergency department workup notable for elevated creatinine of 2.4, elevated BNP of 12,300, troponin of 0.54, glucose of 360, D-dimer of 0.87, white count of 13.2. Mildly tachycardic in the low 100s. Chest x-ray consistent with mild interstitial prominence consistent with mild volume overload. Given her above-mentioned complaints Dr. Beard was consulted with cardiology recommends IV diuresis and will see patient in AM. She is admitted to hospital service. Hospital Course Hospital Course Hospital Course: #CAD #NSTEMI #Acute on chronic HFrEF Elevated troponin of 0.[address] changes noted. Given cardiac history, started on heparin drip. ECHO revealed LVEF 40 to 45%, new severe hypokinesis of apical LV wall. Cardiology consulted, proceeded with [facility]. S/p 2 SHANNAN in vein grafts LAD, PDA on 12/13/2023. Patient doing well today, no chest pain, shortness of breath, cough. Tolerating p.o. intake, ambulating well. Continue aspirin 81 mg, Plavix 75 mg, atorvastatin 40 mg. Continue irbesartan. Hold ARNI, MRA, SGLT-2 with STACY on CKD III, GFR currently 22. Discharged with Lasix 40 mg daily. Will follow-up with cardiology within 1 week #ICD discharge #A-fib with RVR >215bpm resulting in ICD discharge x3 12/11/23 - s/p MAZE and MILLY clip 2022 - device interrogation indicated A-fib burden is only 1.2% - Started on IV amiodarone, transitioned to p.o. amiodarone 400 mg twice daily. - no OAC required due to MILLY clip ? Discharged with amiodarone 400 mg twice daily. #Elevated D-dimer - D-dimer 0.87. However, Wells score 0. Low suspicion for PE at this time. #Acute kidney injury superimposed on chronic kidney disease stage IIIa Creatinine 2.6, baseline 2.3. In the setting of cardiorenal third spacing and aggressive IV diuresis. Will follow-up with PCP within 1 week for repeat BMP. #T2DM with hyperglycemia Continue long-acting and sliding scale insulin #Hypothyroidism Continue levothyroxine Exam Data for Last 24 hours Vital signs and Labs for Last 24 Hours: Temp Pulse Resp BP Pulse Ox O2 Del Method 97.6 F 76 18 122/61 97 Room Air 12/14/23 08:00 12/14/23 08:00 12/14/23 08:00 12/14/23 08:00 12/14/23 08:00 12/14/23 11:00 Laboratory Results - last 24 hr 12/13/23 14:35: Activated Clotting Time 330 H* 12/13/23 16:33: POC Glucose 154 H 12/13/23 20:46: POC Glucose 94 12/14/23 05:34: POC Glucose 223 H 12/14/23 05:48: WBC 13.5 H, RBC 4.10 L, Hgb 12.1 L, Hct 36.5 L, MCV 89.1, MCH 29.6, MCHC 33.2, RDW 16.1, Plt Count 323, MPV 8.2, Neut % (Auto) 76.4, Lymph % (Auto) 15.4, [place] % (Auto) 5.4, Eos % (Auto) 1.9, Baso % (Auto) 0.8, Neut # (Auto) 10.3 H, Lymph # (Auto) 2.1, [place] # (Auto) 0.7, Eos # (Auto) 0.3, Baso # (Auto) 0.1, APTT 29.6 L, Sodium 135 L, Potassium 4.7, Chloride 111 H, Carbon Castillo xide 13 L, Anion Gap 15.7 H, BUN 58 H, Creatinine 2.80 H, Estimated Creat Clear 21, Estimated GFR 17 L*, Est GFR ( Amer) 21 L, Glucose 206 H, Hemoglobin A1c 7.6 H, Calcium 8.8, Total Bilirubin 0.5, AST 15, ALT 10 L, Alkaline Phosphatase 108, Total Protein 6.5, Albumin 3.6, Globulin 2.9, Albumin/Globulin Ratio 1.2, Triglycerides 210 H, Cholesterol 184, LDL Cholesterol Direct 138.35 H , VLDL Cholesterol 42 H, HDL Cholesterol 21 L, Cholesterol/HDL Ratio 8.8 H I & O for Last 24 hours: Intake & Output 12/11/23 12/12/23 12/13/23 12/14/23 23:59 23:59 23:59 23:59 Intake Total 898 / 1324 656 / 1136 900 / 900 Output Total 4000 / 4000 1390 / 1390 900 / 900 Balance -3102 / -2676 -734 / -254 0 / 0 Weight 67.268 kg 67.3 kg 67.3 kg 64.41 kg Constitutional Constitutional: no acute distress *Routine HEENT Exam Head: Present normocephalic Eye: Present EOMI and PERRL ENT: Present mucous membranes moist *Routine Neck Exam Neck: Present supple; Absent lymphadenopathy *Routine Respiratory Exam Respiratory: Present CTA bilaterally *Routine Cardiovascular Exam Cardiovascular: Present RRR *Routine Abdominal Exam Abdominal: Present soft and normoactive bowel sounds; Absent tenderness *Routine Extremities Exam Extremities: Present edema; Absent cyanosis or clubbing *Routine Skin Exam Skin: Present warm; Absent rash *Routine Neurological Exam Neurological: Present alert and oriented X3 Results Data Completed and Pending Labs on day of discharge: Labs from last 24 hours 12/14/23 12/14/23 12/13/23 05:48 05:34 20:46 WBC 13.5 H RBC 4.10 L Hgb 12.1 L Hct 36.5 L MCV 89.1 MCH 29.6 MCHC 33.2 RDW 16.1 Plt Count 323 MPV 8.2 Neut % (Auto) 76.4 Lymph % (Auto) 15.4 [place] % (Auto) 5.4 Eos % (Auto) 1.9 Baso % (Auto) 0.8 Neut # (Auto) 10.3 H Lymph # (Auto) 2.1 [place] # (Auto) 0.7 Eos # (Auto) 0.3 Baso # (Auto) 0.1 APTT 29.6 L Activated Clotting Time Sodium 135 L Potassium 4.7 Chloride 111 H Carbon Dioxide 13 L Anion Gap 15.7 H BUN 58 H Creatinine 2.80 H Estimated Creat Clear 21 Estimated GFR 17 L* Est GFR ( Amer) 21 L Glucose 206 H POC Glucose 223 H 94 Hemoglobin A1c 7.6 H Calcium 8.8 Total Bilirubin 0.5 AST 15 ALT 10 L Alkaline Phosphatase 108 Total Protein 6.5 Albumin 3.6 Globulin 2.9 Albumin/Globulin Ratio 1.2 Triglycerides 210 H Cholesterol 184 LDL Cholesterol Direct 138.35 H VLDL Cholesterol 42 H HDL Cholesterol 21 L Cholesterol/HDL Ratio 8.8 H 12/13/23 12/13/23 16:33 14:35 WBC RBC Hgb Hct MCV MCH MCHC RDW Plt Count MPV Neut % (Auto) Lymph % (Auto) [place] % (Auto) Eos % (Auto) Baso % (Auto) Neut # (Auto) Lymph # (Auto) [place] # (Auto) Eos # (Auto) Baso # (Auto) APTT Activated Clotting Time 330 H* Sodium Potassium Chloride Carbon Dioxide Anion Gap BUN Creatinine Estimated Creat Clear Estimated GFR Est GFR ( Amer) Glucose POC Glucose 154 H Hemoglobin A1c Calcium Total Bilirubin AST ALT Alkaline Phosphatase Total Protein Albumin Globulin Albumin/Globulin Ratio Triglycerides Cholesterol LDL Cholesterol Direct VLDL Cholesterol HDL Cholesterol Cholesterol/HDL Ratio DS: Diagnosis Discharge Diagnosis (1) Acute on chronic heart failure: Status: Acute Code(s): I50.9 - Heart failure, unspecified Qualifiers: Heart failure type: unspecified Qualified Code(s): I50.9 - Heart failure, unspecified (2) ICD (implantable cardioverter-defibrillator) discharge: Status: Acute Code(s): Z45.02 - Encounter for adjustment and management of automatic implantable cardiac defibrillator (3) Acute kidney injury superimposed on stage 3a chronic kidney disease: Status: Acute Code(s): N17.9 - Acute kidney failure, unspecified; N18.31 - Chronic kidney disease, stage 3a (4) SIRS (systemic inflammatory response syndrome): Status: Acute Code(s): R65.10 - Systemic inflammatory response syndrome (SIRS) of non-infectious origin without acute organ dysfunction (5) T2DM (type 2 diabetes mellitus): Status: Acute Code(s): E11.9 - Type 2 diabetes mellitus without complications Qualifiers: Chronic kidney disease stage 3 subtype: stage 3a (GFR 45-59) Diabetes mellitus [employer] insulin use: with care home use (6) CAD (coronary artery disease): Status: Acute Code(s): I25.10 - Atherosclerotic heart disease of [place] coronary artery without angina pectoris Qualifiers: Coronary Disease-Associated Artery/Lesion type: [place] artery Meds Home Medications and Allergies Home Medications ?Medication ?Instructions ?Recorded ?Confirmed ?Type alprazolam 0.5 mg tablet 0.5 mg PO BIDP PRN Anxiety 12/12/23 12/12/23 History cholecalciferol (vitamin D3) 25 25 mcg PO DAILY 12/12/23 12/12/23 History mcg (1,000 unit) tablet citalopram 20 mg tablet 20 mg PO DAILY 12/12/23 12/12/23 History dapagliflozin propanediol 5 mg 5 mg PO DAILY 12/12/23 12/12/23 History tablet (Farxiga) ergocalciferol (vitamin D2) 1,250 1,250 mcg PO WEEKLY 12/12/23 12/12/23 History mcg (50,000 unit) capsule insulin glargine 100 unit/mL (3 8 unit SQ HS 12/12/23 12/12/23 History mL) subcutaneous pen (Lantus Solostar U-100 Insulin) insulin human U-100 NPH-regulr 6 unit SQ BID 12/12/23 12/12/23 History 70-30 mix 100 unit/mL subcutaneous susp (Novolin 70/30 U-100 Insulin) losartan 25 mg tablet 25 mg PO DAILY 12/12/23 12/12/23 History trazodone 50 mg tablet 50 mg PO HS 12/12/23 12/12/23 History amiodarone 200 mg tablet 400 mg (2 x 200 mg) PO BID 30 days 12/14/23 Rx #120 tabs aspirin 81 mg tablet,delayed 81 mg PO DAILY 30 days #30 tabs 12/14/23 Rx release atorvastatin 40 mg tablet 40 mg PO HS 30 days #30 tabs 12/14/23 Rx clopidogrel 75 mg tablet 75 mg PO DAILY 30 days #30 tabs 12/14/23 Rx furosemide 40 mg tablet (Lasix) 40 mg PO DAILY #30 tabs 12/14/23 Rx New Prescriptions to Start Prescriptions: amiodarone Demetri Santoyo aspirin Natanael,Demetri atorvastatin Natanael,Demetri clopidogrel Natanael,Demetri furosemide [Lasix] Demetri Santoyo Allergies Allergy/AdvReac Type Severity Reaction Status Date / Time No Known Allergies Allergy Verified 03/01/23 10:19 Discharge Plan Disposition Patient Disposition: Home, Self-Care Condition: Good Discharge Order Discharge Orders: Discharge Order (Routine); Ordered 12/14/23 Ordered By: Demetri Santoyo Follow up Plan Follow up with: Mehul Beard MD [Staff Physician] - 12/23/23 9:45 am Prescriptions/Medication Reconciliation: New amiodarone 200 mg Tablet 400 mg PO BID 30 Days Qty: 120 0RF furosemide [Lasix] 40 mg tablet 40 mg PO DAILY Qty: 30 0RF aspirin 81 mg Tablet,Delayed Release (Dr/Ec) 81 mg PO DAILY 30 Days Qty: 30 0RF Continued trazodone 50 mg tablet 50 mg PO HS alprazolam 0.5 mg tablet 0.5 mg PO BIDP PRN (Reason: Anxiety) citalopram 20 mg tablet 20 mg PO DAILY Novolin 70/30 U-100 Insulin 100 unit/mL (70-30) suspension 6 unit SQ BID losartan 25 mg Tablet 25 mg PO DAILY ergocalciferol (vitamin D2) 1,250 mcg (50,000 unit) Capsule 1,250 mcg PO WEEKLY cholecalciferol (vitamin D3) 25 mcg (1,000 unit) Tablet 25 mcg PO DAILY insulin glargine [Lantus Solostar U-100 Insulin] 100 unit/mL (3 mL) insulin pen 8 unit SQ HS dapagliflozin propanediol [Farxiga] 5 mg Tablet 5 mg PO DAILY atorvastatin 40 mg Tablet 40 mg PO HS 30 Days Qty: 30 0RF clopidogrel 75 mg tablet 75 mg PO DAILY 30 Days Qty: 30 0RF Patient Comments: TAKE ONE TABLET BY MOUTH ONCE A DAY Discontinued aspirin 81 mg Tablet,Delayed Release (Dr/Ec) 81 mg PO DAILY Problem Reconciliation Problems Reviewed?: Yes Patient Discharge Instructions DIET: diabetic diet Patient Instructions: Cardiac Catheterization, DI for Heart Failure, Surgical Site Infection, Moderate Sedation, DI for Post-Surgical Bleeding, DI for Acute Kidney Injury Print Language: Kiswahili Providers Primary Care Provider: Ivonne Jones Admit Provider: Demetri Santoyo Attending Provider: Demetri Santoyo
[2023-12-14 15:54] LABS: POC Glucose,Bedside 210 (70-110)
--- NOTE | 2023-12-17 13:49 | CARE MANAGER ---
Patient is readmitted to hospital at time of follow up discharge call. REGULO Ge
== END 2023-12-14 12:59 | disposition home or self-care (01) | DRG 321 ==
LOC: ER 22:22 → 2ND 22:51
PROVIDERS: Internal Medicine; Nurse Practitioner Acute Care; Admitting Provider Student in an Organized Health Care Education/Training Program; Emergency Provider Emergency Medicine; PCP Nurse Practitioner Family; Visit Provider Student in an Organized Health Care Education/Training Program
PROC: 027135Z Dilation of Coronary Artery, Two Arteries with Two Drug-eluting Intraluminal Devices, Percutaneous Approach (ICD-10-PCS; principal; 2023-12-13 09:45)
DX: I21.4 Non-ST elevation (NSTEMI) myocardial infarction (principal); I50.23 Acute on chronic systolic (congestive) heart failure; N17.9 Acute kidney failure, unspecified; Z45.02 Encounter for adjustment and management of automatic implantable cardiac defibrillator; I25.10 Atherosclerotic heart disease of native coronary artery without angina pectoris; N18.31 Chronic kidney disease, stage 3a; I65.29 Occlusion and stenosis of unspecified carotid artery; Z95.810 Presence of automatic (implantable) cardiac defibrillator; E78.5 Hyperlipidemia, unspecified; E66.9 Obesity, unspecified; Z68.26 Body mass index [BMI] 26.0-26.9, adult; Z79.4 Long term (current) use of insulin; E11.51 Type 2 diabetes mellitus with diabetic peripheral angiopathy without gangrene; F17.210 Nicotine dependence, cigarettes, uncomplicated; E11.22 Type 2 diabetes mellitus with diabetic chronic kidney disease; Z91.199 Patient's noncompliance with other medical treatment and regimen due to unspecified reason; E03.9 Hypothyroidism, unspecified; I12.9 Hypertensive chronic kidney disease with stage 1 through stage 4 chronic kidney disease, or unspecified chronic kidney disease
CPT/HCPCS: 36415; 71045; 80048; 80053; 80061; 82009; 82803; 82962; 83036; 83690; 83735; 83880; 84100; 84436; 84443; 84484; 85007; 85025; 85347; 85378; 85610; 85730; 86803; 87081; 87389; 87636; 92928; 93005; 93306; 93454; 93970; 94640; 99152; 99153; 99285; C1725; C1769; C1874; C1894; C9600; J0282; J1200; J1644; J1940; J2250; J3010; J7060; J7644; Q9967

== ENCOUNTER 2023-12-15 12:53 | Inpatient (IN) | payer MEDICARE, SELFPAY ==
[2023-12-15] VITALS (12 sets, daily range): BP systolic 109–180; BP diastolic 68–120; PULSE 60–100; RESP 16–24; TEMP 36.3–37.3; O2SAT 97–100; BMI 27.8; BMI 26.9
--- NOTE | 2023-12-15 14:19 | XR_ITS ---
PROCEDURE INFORMATION: Exam: XR Chest Exam date and time: 12/15/2023 2:27 PM Age: 63 years old Clinical indication: Shortness of breath; Additional info: Rhonchi TECHNIQUE: Imaging protocol: Radiologic exam of the chest. Views: 1 view. COMPARISON: CR XR CHEST PORTABLE 12/11/2023 9:22 PM FINDINGS: Tubes, catheters and devices: Left chest pacemaker defibrillator device is demonstrated. Left atrial appendage closure device is demonstrated. Lungs: Evidence for calcified lung granuloma in the left chest. Improved expansion of the lungs. Improvement of bilateral lung opacities is demonstrated. Bilateral pulmonary linear interstitial opacities identified within lower lungs. Pleural spaces: No pleural effusion. No pneumothorax. Heart/Mediastinum: Mediastinum and ed appear unremarkable. Bones/joints: Sternotomy wires, hardware is demonstrated. Generalized bony degenerative changes. Bony structures appear otherwise unremarkable. IMPRESSION: 1. Pulmonary atelectasis or acute infiltrates within lower chest bilaterally. 2. Degenerative and postsurgical changes are demonstrated, as described above.
--- NOTE | 2023-12-15 14:31 | ECG_ITS ---
APPROVED REPORT Exam: Resting ECG HR:68 bpm ECG Measurements Heart Rate 68 AXES NV 137 P 75 QRSd 158 QRS 206 QT 464 T 49 QTc 481 Conclusion ELECTRONIC VENTRICULAR PACEMAKER Electronically signed by : NOBLE FRIED, 12/17/2023 15:27:03
--- NOTE | 2023-12-15 14:42 | ED_ITS ---
<Statement entered by Umer Valentine MD - 12/15/23 22:52> I was consulted by the JOSEFINA, and we discussed the complexity of the problems being addressed. I approved the treatment and management plan for this patient's care in the emergency department, thus performing a substantive portion of the medical decision making. Umer Valentine MD, JORDYN, FACEP <Statement entered by Ronda Barron DO - 12/15/23 15:16> I was consulted by the JOSEFINA, and we discussed the complexity of the problems being addressed. I approved the treatment and management plan for this patient's care in the emergency department, thus performing a substantive portion of the medical decision making. Ronda Barron DO Discharge Plan Disposition Patient Disposition: Admitted Condition: Good Clinical Impressions Clinical Impression: Diabetic ketoacidosis, Dehydration Discharge ED Provider: Ronda Barron General Adult HPI <TANIA Powers - Last Filed: 12/15/23 18:08> General Chief complaint: Nausea/Vomiting/Diarrhea Stated complaint: dry heaves, vomiting Time Seen by Provider: 12/15/23 14:04 Mode of Arrival: Wheelchair Source of Information: Patient Limitations: No Limitations Description of Symptoms (Recalled from ER Triage Doc. by RN): Patient reports that she was discharged yesterday and woke up today dry heaving and vomiting. History of Present Illness HPI narrative: Patient presents complaining of nausea and vomiting. She has attempted to take Phenergan which she did not hold down. She underwent stenting of her coronary artery bypass graft on 12/[address] Beard. She reports that she is having pain everywhere . She does have a defibrillator which had several confirmed events prior to her last admission, this was for A-fib with RVR in the V-fib zone with a rate of over 215 for. complaint: Vomiting Onset (ago): day(s) Severity: moderate Quality: other (Unable to specify) Consistency: constant Relieving factors: none Exacerbating factors: none Associated symptoms: nausea/vomiting; negative fever/chills Treatments prior to arrival: other (Phenergan) Related Data Home Medications ?Medication ?Instructions ?Recorded ?Confirmed alprazolam 0.5 mg tablet 0.5 mg PO BIDP PRN Anxiety 12/12/23 12/12/23 cholecalciferol (vitamin D3) 25 25 mcg PO DAILY 12/12/23 12/12/23 mcg (1,000 unit) tablet citalopram 20 mg tablet 20 mg PO DAILY 12/12/23 12/12/23 dapagliflozin propanediol 5 mg 5 mg PO DAILY 12/12/23 12/12/23 tablet (Farxiga) ergocalciferol (vitamin D2) 1,250 1,250 mcg PO WEEKLY 12/12/23 12/12/23 mcg (50,000 unit) capsule insulin glargine 100 unit/mL (3 8 unit SQ HS 12/12/23 12/12/23 mL) subcutaneous pen (Lantus Solostar U-100 Insulin) insulin human U-100 NPH-regulr 6 unit SQ BID 12/12/23 12/12/23 70-30 mix 100 unit/mL subcutaneous susp (Novolin 70/30 U-100 Insulin) losartan 25 mg tablet 25 mg PO DAILY 12/12/23 12/12/23 trazodone 50 mg tablet 50 mg PO HS 12/12/23 12/12/23 Previous Rx's ?Medication ?Instructions ?Recorded amiodarone 200 mg tablet 400 mg (2 x 200 mg) PO BID 30 days 12/14/23 #120 tabs aspirin 81 mg tablet,delayed 81 mg PO DAILY 30 days #30 tabs 12/14/23 release atorvastatin 40 mg tablet 40 mg PO HS 30 days #30 tabs 12/14/23 clopidogrel 75 mg tablet 75 mg PO DAILY 30 days #30 tabs 12/14/23 furosemide 40 mg tablet (Lasix) 40 mg PO DAILY #30 tabs 12/14/23 Allergies Allergy/AdvReac Type Severity Reaction Status Date / Time No Known Allergies Allergy Verified 03/01/23 10:19 [facility] <TANIA Powers - Last Filed: 12/15/23 18:08> [facility] Disclaimer: The information contained in this section may have been updated after the patient was seen, as this information can be updated by other users. Medical History Renal insufficiency Valvular heart disease Palpitations Myocardial infarction HTN (hypertension), benign T2DM (type 2 diabetes mellitus) Depression CHF (congestive heart failure) Cancer Arrhythmia Anxiety Encounter for pre-operative cardiovascular clearance PAD (peripheral artery disease) Abnormal ankle brachial index (GOMEZ) PVD (peripheral vascular disease) HHD (hypertensive heart disease) Smoker HLD (hyperlipidemia) Carotid bruit Carotid artery stenosis CAD (coronary artery disease) Surgical History Hx of tonsillectomy History of mitral valve replacement S/P left atrial appendage ligation AICD (automatic cardioverter/defibrillator) present H/O tricuspid valve replacement History of coronary artery bypass graft Family History Other Cancer Diabetes Heart attack Social History Smoking Status: Current every day smoker tobacco type: cigarettes packs per day: 1 second hand exposure: Yes alcohol intake: never substance use type: marijuana current occupational status: unemployed Travel in the last 8 weeks: None household members: family housing: house number of children: 2 current occupational exposures/hazards: No caffeine: Yes Other Medical History Have you received the Flu Vaccine for this season: No Have you received the Pneumonia Vaccine: No <TANIA Powers - Last Filed: 12/15/23 18:08> ROS Obtained: Yes All systems reviewed & no additional complaints except as documented Physical Exam <TANIA Powers - Last Filed: 12/15/23 18:08> General General appearance: alert and in no apparent distress Head Head exam: atraumatic and normocephalic Eye Eye exam: Present normal appearance and EOMI Chest Chest inspection: Present symmetric chest wall rise Respiratory Respiratory exam: Present normal lung sounds bilaterally; Absent wheezes or stridor Cardiovascular Cardiovascular exam: Present regular rate and normal rhythm; Absent systolic murmur Abdominal Exam Abdominal exam: Present soft; Absent distention, tenderness, guarding or rebound Extremities Exam Extremities exam: Present full ROM Neurological Exam Neurological exam: Present alert and oriented X3 Psychiatric Psychiatric exam: Present normal affect and normal mood Skin Skin exam: Present warm, dry and intact Medical Decision Making <TANIA Powers - Last Filed: 12/15/23 18:08> Medical Records Screening: Per USPSTF and CDC recommendations, given the prevalence of disease in our region, it is our hospital?s policy to screen for HIV and viral Hepatitis for all patients aged 18 and over and those with ongoing risk factors. [place] Inquiry Pt receiving controlled substance: No [place] was queried for this patient: No Vital Signs: 12/15/23 12:54 12/15/23 13:51 12/15/23 13:52 Temperature 97.4 F L Temperature Source Oral Pulse Rate 72 69 Pulse Rate [Radial] 68 Respiratory Rate 18 Blood Pressure 135/120 H 156/70 H Blood Pressure [Right Arm] 156/70 H Blood Pressure Mean 121 98 Blood Pressure Mean [Right Arm] 98 Blood Pressure Source Blood Pressure Source [Right Arm] Automatic Cuff Blood Pressure Position Blood Pressure Position [Right Arm] Sitting 02 Sat by Pulse Oximetry 99 100 100 Oxygen Delivery Method Room Air Room Air Room Air 12/15/23 14:00 12/15/23 14:28 12/15/23 17:00 Temperature 97.9 F Temperature Source Pulse Rate 60 84 83 Pulse Rate [Radial] Respiratory Rate 24 Blood Pressure 180/79 H 179/71 H 170/79 H Blood Pressure [Right Arm] Blood Pressure Mean 110 Blood Pressure Mean [Right Arm] Blood Pressure Source Automatic Cuff Blood Pressure Source [Right Arm] Blood Pressure Position Sitting Blood Pressure Position [Right Arm] 02 Sat by Pulse Oximetry 98 99 Oxygen Delivery Method Room Air Room Air Room Air Lab Data Lab Results 12/15/23 14:50: WBC 17.5 H D, RBC 4.32, Hgb 12.4, Hct 39.0, MCV 90.3, MCH 28.8, MCHC 31.9, RDW 15.8, Plt Count 365, MPV 8.9, Neut % (Auto) 94.2 H, Lymph % (Auto) 3.4 L, [place] % (Auto) 1.5 L, Eos % (Auto) 0.5, Baso % (Auto) 0.5, Neut # (Auto) 16.5 H, Lymph # (Auto) 0.6 L, [place] # (Auto) 0.3, Eos # (Auto) 0.1, Baso # (Auto) 0.1, Sodium 137, Potassium 5.8 H D, Chloride 107, Carbon Dioxide 12 L, A nion Gap 23.8 H, BUN 77 H D, Creatinine 4.00 H D, Estimated Creat Clear 16, E stimated GFR 11 L*, Est GFR ( Amer) 14 L* D, Glucose 333 H, Hemoglobin A1c 7.6 H, Calcium 9.2, Phosphorus 6.6 H, Magnesium 2.2, Total Bilirubin 0.5, AST 17, ALT 14 D, Alkaline Phosphatase 126, Troponin I 0.18 H, Total Protein 7.4, Albumin 4.3 D, Globulin 3.1, Albumin/Globulin Ratio 1.4, Lipase 109, Acetone Level None detected 12/15/23 15:28: VBG pH 7.21 L, VBG pCO2 33.2 L, VBG pO2 92.6 H, VBG HCO3 13.0 L, VBG Total CO2 14.0 L, VBG O2 Saturation 96.1 H, VBG Base Excess -14.9 L, VBG Lactic Acid 1.9 12/15/23 14:50 12/15/23 17:35 Orders (Tests/Meds): ED MEDICATIONS Generic Name Dose Route Start Last Admin Trade Name Freq PRN Reason Stop Dose Admin Dextrose 50 ml 12/15/23 16:26 Dextrose 50% 50ml Syringe (Crash Cart) IVP 01/14/24 16:25 NEEDED PRN Per Dka Protocol for FSBS </= 50 Sodium Chloride 1,000 mls @ 500 mls/hr 12/15/23 14:30 12/15/23 16:41 Sod Chlor 0.9% 1000ml Bag IV 01/14/24 14:29 500 mls/hr .Q2H BIJAN Administration Insulin Human Regular 100 unit 101 mls @ 0.101 mls/hr 12/15/23 15:45 / Sodium Chloride IV 01/14/24 15:44 .Q24H BIJAN Protocol 0.1 UNIT/HR Ceftriaxone Sodium 1 gm/ 50 mls @ 100 mls/hr 12/15/23 16:00 12/15/23 16:47 Sodium Chloride IV 12/25/23 15:59 100 mls/hr Q24H BIJAN Administration Azithromycin 500 mg/ Sodium 250 mls @ 250 mls/hr 12/15/23 16:00 12/15/23 16:55 Chloride IV 12/25/23 15:59 250 mls/hr Q24H BIJAN Administration Insulin Human Regular 100 unit 101 mls @ 0.101 mls/hr 12/15/23 16:30 / Sodium Chloride IV 01/14/24 16:29 .Q24H BIJAN Protocol 0.1 UNIT/HR Sodium Chloride 1,000 mls @ 100 mls/hr 12/15/23 16:30 Sod Chlor 0.9% 1000ml Bag IV 01/14/24 16:29 .Q10H BIJAN Dextrose/Sodium Chloride 1,000 mls @ 100 mls/hr 12/15/23 16:30 Dextrose 5%-0.45% Nacl Iv Soln IV 01/14/24 16:29 .Q10H BIJAN Prochlorperazine Edisylate 10 mg 12/15/23 17:40 12/15/23 17:51 Prochlorperazine 10mg/2ml Vial IV 01/14/24 17:39 10 mg Q6HP PRN Administration Nausea And Vomiting Discontinued Medications Generic Name Dose Route Start Last Admin Trade Name Freq PRN Reason Stop Dose Admin Lactated Ringer's 1,000 mls @ 500 mls/hr 12/15/23 17:40 Lactated Ringer's 1000 Ml Bag IV 12/15/23 19:39 .Q2H ONE Ondansetron HCl 4 mg 12/15/23 14:19 12/15/23 14:58 Ondansetron 4mg/2ml Vial IV 12/15/23 14:20 4 mg ONCE ONE Administration Promethazine HCl 12.5 mg 12/15/23 15:37 12/15/23 16:16 Promethazine Hcl 25mg/Ml 1ml Vial IV 12/15/23 15:38 12.5 mg ONCE ONE Administration Sodium Chloride 25 ml 12/15/23 15:37 12/15/23 16:16 Sodium Chloride 0.9% 25ml Bag IV 12/15/23 15:38 25 ml ONCE ONE Administration ORDERS Category Date Time Status XR chest portable Stat Exams 12/15/23 14:19 Completed Acetone, Serum (Rapid) Stat Lab 12/15/23 14:50 Completed Basic Metabolic Panel Q4H Lab 12/15/23 17:35 Completed Basic Metabolic Panel Q4H Lab 12/15/23 20:30 Ordered Basic Metabolic Panel Q4H Lab 12/16/23 00:30 Ordered Basic Metabolic Panel Q4H Lab 12/16/23 04:30 Ordered Basic Metabolic Panel Q4H Lab 12/16/23 08:30 Ordered Basic Metabolic Panel Q4H Lab 12/16/23 12:30 Ordered Complete Blood Count Auto Diff Stat Lab 12/15/23 14:50 Results Comprehensive Metabolic Panel Stat Lab 12/15/23 14:50 Completed HIV (1&2) Antibody Rapid Stat Lab 12/15/23 14:50 Received Hemoglobin A1C Stat Lab 12/15/23 14:50 Completed Hep C Ab with Reflex to RNA Stat Lab 12/15/23 14:50 Received Lipase Stat Lab 12/15/23 14:50 Completed Magnesium Q4H Lab 12/15/23 17:35 Completed Magnesium Q4H Lab 12/15/23 20:30 Ordered Magnesium Q4H Lab 12/16/23 00:30 Ordered Magnesium Q4H Lab 12/16/23 04:30 Ordered Magnesium Q4H Lab 12/16/23 08:30 Ordered Magnesium Q4H Lab 12/16/23 12:30 Ordered Magnesium Stat Lab 12/15/23 14:50 Completed Phosphorous Q4H Lab 12/15/23 17:35 Completed Phosphorous Q4H Lab 12/15/23 20:30 Ordered Phosphorous Q4H Lab 12/16/23 00:30 Ordered Phosphorous Q4H Lab 12/16/23 04:30 Ordered Phosphorous Q4H Lab 12/16/23 08:30 Ordered Phosphorous Q4H Lab 12/16/23 12:30 Ordered Phosphorous Stat Lab 12/15/23 14:50 Completed Troponin I Q3H Lab 12/15/23 17:35 Received Troponin I Q3H Lab 12/15/23 20:30 Ordered Troponin I Stat Lab 12/15/23 14:50 Completed Urinalysis and Microscopic Stat Lab 12/15/23 14:19 Ordered Blood Culture Stat Micro 12/15/23 16:30 Received Urine Culture Stat Micro 12/15/23 14:19 Ordered VBG [Venous Blood Gas] Stat RT 12/15/23 15:28 Completed 12-lead EKG Request [ECG Request] Stat Y 12/15/23 14:25 Ordered Medical Decision Narrative: In summary patient is a 63-year-old who presents the emergency department for evaluation of vomiting. Patient is hypertensive upon arrival, afebrile. Unremarkable physical exam. Differential diagnosis includes ACS, dehydration, UTI, STACY. Initial workup will be conducted with CBC, CMP, EKG, lipase, troponin, chest x-ray. Initial inventions include IV fluid bolus, Zofran. Initial workup reviewed by me Patient has anion gap acidosis, started on insulin drip. Upon repeat evaluation continues to have nausea despite Zofran, given Phenergan. Admitted to hospitalist. I personally reviewed the patient's chest x-ray which was improved from prior visit which showed possible pulmonary edema. <Ronda Rogers Barron, DO - Last Filed: 12/15/23 14:54> Vital Signs: 12/15/23 12:54 12/15/23 13:51 12/15/23 13:52 Temperature 97.4 F L Temperature Source Oral Pulse Rate 72 69 Pulse Rate [Radial] 68 Respiratory Rate 18 Blood Pressure 135/120 H 156/70 H Blood Pressure [Right Arm] 156/70 H Blood Pressure Mean 121 98 Blood Pressure Mean [Right Arm] 98 Blood Pressure Source Blood Pressure Source [Right Arm] Automatic Cuff Blood Pressure Position Blood Pressure Position [Right Arm] Sitting 02 Sat by Pulse Oximetry 99 100 100 Oxygen Delivery Method Room Air Room Air Room Air 12/15/23 14:00 12/15/23 14:28 12/15/23 17:00 Temperature 97.9 F Temperature Source Pulse Rate 60 84 83 Pulse Rate [Radial] Respiratory Rate 24 Blood Pressure 180/79 H 179/71 H 170/79 H Blood Pressure [Right Arm] Blood Pressure Mean 110 Blood Pressure Mean [Right Arm] Blood Pressure Source Automatic Cuff Blood Pressure Source [Right Arm] Blood Pressure Position Sitting Blood Pressure Position [Right Arm] 02 Sat by Pulse Oximetry 98 99 Oxygen Delivery Method Room Air Room Air Room Air Lab Data Lab Results 12/15/23 14:50: WBC 17.5 H D, RBC 4.32, Hgb 12.4, Hct 39.0, MCV 90.3, MCH 28.8, MCHC 31.9, RDW 15.8, Plt Count 365, MPV 8.9, Neut % (Auto) 94.2 H, Lymph % (Auto) 3.4 L, [place] % (Auto) 1.5 L, Eos % (Auto) 0.5, Baso % (Auto) 0.5, Neut # (Auto) 16.5 H, Lymph # (Auto) 0.6 L, [place] # (Auto) 0.3, Eos # (Auto) 0.1, Baso # (Auto) 0.1, Sodium 137, Potassium 5.8 H D, Chloride 107, Carbon Dioxide 12 L, A nion Gap 23.8 H, BUN 77 H D, Creatinine 4.00 H D, Estimated Creat Clear 16, E stimated GFR 11 L*, Est GFR ( Amer) 14 L* D, Glucose 333 H, Hemoglobin A1c 7.6 H, Calcium 9.2, Phosphorus 6.6 H, Magnesium 2.2, Total Bilirubin 0.5, AST 17, ALT 14 D, Alkaline Phosphatase 126, Troponin I 0.18 H, Total Protein 7.4, Albumin 4.3 D, Globulin 3.1, Albumin/Globulin Ratio 1.4, Lipase 109, Acetone Level None detected 12/15/23 15:28: VBG pH 7.21 L, VBG pCO2 33.2 L, VBG pO2 92.6 H, VBG HCO3 13.0 L, VBG Total CO2 14.0 L, VBG O2 Saturation 96.1 H, VBG Base Excess -14.9 L, VBG Lactic Acid 1.9 Orders (Tests/Meds): ED MEDICATIONS Generic Name Dose Route Start Last Admin Trade Name Freq PRN Reason Stop Dose Admin Dextrose 50 ml 12/15/23 16:26 Dextrose 50% 50ml Syringe (Crash Cart) IVP 01/14/24 16:25 NEEDED PRN Per Dka Protocol for FSBS </= 50 Sodium Chloride 1,000 mls @ 500 mls/hr 12/15/23 14:30 12/15/23 16:41 Sod Chlor 0.9% 1000ml Bag IV 01/14/24 14:29 500 mls/hr .Q2H BIJAN Administration Insulin Human Regular 100 unit 101 mls @ 0.101 mls/hr 12/15/23 15:45 / Sodium Chloride IV 01/14/24 15:44 .Q24H BIJAN Protocol 0.1 UNIT/HR Ceftriaxone Sodium 1 gm/ 50 mls @ 100 mls/hr 12/15/23 16:00 12/15/23 16:47 Sodium Chloride IV 12/25/23 15:59 100 mls/hr Q24H BIJAN Administration Azithromycin 500 mg/ Sodium 250 mls @ 250 mls/hr 12/15/23 16:00 12/15/23 16:55 Chloride IV 12/25/23 15:59 250 mls/hr Q24H BIJAN Administration Insulin Human Regular 100 unit 101 mls @ 0.101 mls/hr 12/15/23 16:30 / Sodium Chloride IV 01/14/24 16:29 .Q24H BIJAN Protocol 0.1 UNIT/HR Sodium Chloride 1,000 mls @ 100 mls/hr 12/15/23 16:30 Sod Chlor 0.9% 1000ml Bag IV 01/14/24 16:29 .Q10H BIJAN Dextrose/Sodium Chloride 1,000 mls @ 100 mls/hr 12/15/23 16:30 Dextrose 5%-0.45% Nacl Iv Soln IV 01/14/24 16:29 .Q10H BIJAN Prochlorperazine Edisylate 10 mg 12/15/23 17:40 12/15/23 17:51 Prochlorperazine 10mg/2ml Vial IV 01/14/24 17:39 10 mg Q6HP PRN Administration Nausea And Vomiting Discontinued Medications Generic Name Dose Route Start Last Admin Trade Name Freq PRN Reason Stop Dose Admin Lactated Ringer's 1,000 mls @ 500 mls/hr 12/15/23 17:40 Lactated Ringer's 1000 Ml Bag IV 12/15/23 19:39 .Q2H ONE Ondansetron HCl 4 mg 12/15/23 14:19 12/15/23 14:58 Ondansetron 4mg/2ml Vial IV 12/15/23 14:20 4 mg ONCE ONE Administration Promethazine HCl 12.5 mg 12/15/23 15:37 12/15/23 16:16 Promethazine Hcl 25mg/Ml 1ml Vial IV 12/15/23 15:38 12.5 mg ONCE ONE Administration Sodium Chloride 25 ml 12/15/23 15:37 12/15/23 16:16 Sodium Chloride 0.9% 25ml Bag IV 12/15/23 15:38 25 ml ONCE ONE Administration ORDERS Category Date Time Status XR chest portable Stat Exams 12/15/23 14:19 Completed Acetone, Serum (Rapid) Stat Lab 12/15/23 14:50 Completed Basic Metabolic Panel Q4H Lab 12/15/23 17:35 Completed Basic Metabolic Panel Q4H Lab 12/15/23 20:30 Ordered Basic Metabolic Panel Q4H Lab 12/16/23 00:30 Ordered Basic Metabolic Panel Q4H Lab 12/16/23 04:30 Ordered Basic Metabolic Panel Q4H Lab 12/16/23 08:30 Ordered Basic Metabolic Panel Q4H Lab 12/16/23 12:30 Ordered Complete Blood Count Auto Diff Stat Lab 12/15/23 14:50 Results Comprehensive Metabolic Panel Stat Lab 12/15/23 14:50 Completed HIV (1&2) Antibody Rapid Stat Lab 12/15/23 14:50 Received Hemoglobin A1C Stat Lab 12/15/23 14:50 Completed Hep C Ab with Reflex to RNA Stat Lab 12/15/23 14:50 Received Lipase Stat Lab 12/15/23 14:50 Completed Magnesium Q4H Lab 12/15/23 17:35 Completed Magnesium Q4H Lab 12/15/23 20:30 Ordered Magnesium Q4H Lab 12/16/23 00:30 Ordered Magnesium Q4H Lab 12/16/23 04:30 Ordered Magnesium Q4H Lab 12/16/23 08:30 Ordered Magnesium Q4H Lab 12/16/23 12:30 Ordered Magnesium Stat Lab 12/15/23 14:50 Completed Phosphorous Q4H Lab 12/15/23 17:35 Completed Phosphorous Q4H Lab 12/15/23 20:30 Ordered Phosphorous Q4H Lab 12/16/23 00:30 Ordered Phosphorous Q4H Lab 12/16/23 04:30 Ordered Phosphorous Q4H Lab 12/16/23 08:30 Ordered Phosphorous Q4H Lab 12/16/23 12:30 Ordered Phosphorous Stat Lab 12/15/23 14:50 Completed Troponin I Q3H Lab 12/15/23 17:35 Received Troponin I Q3H Lab 12/15/23 20:30 Ordered Troponin I Stat Lab 12/15/23 14:50 Completed Urinalysis and Microscopic Stat Lab 12/15/23 14:19 Ordered Blood Culture Stat Micro 12/15/23 16:30 Received Urine Culture Stat Micro 12/15/23 14:19 Ordered VBG [Venous Blood Gas] Stat RT 12/15/23 15:28 Completed 12-lead EKG Request [ECG Request] Stat Y 12/15/23 14:25 Ordered ECG Data Tracing #1: I reviewed this ECG and interpreted as documented below: Ventricularly paced at a rate of [address] changes concerning for STEMI. ECG initial impression date: 12/15/23 ECG initial impression time: 14:34 Critical Care <TANIA Powers - Last Filed: 12/15/23 18:08> Critical Care Time Critical Care Time: Yes Attestation: On 12/15/23, the high probability of a clinically significant, sudden or life threatening deterioration of the following system(s) required my full and direct attention, intervention and personal management. The time I documented below is in addition to time spent performing reported procedures but includes the following listed in this critical care notation. Total Time Total Critical Care Time: 30
[2023-12-15] MEDS: 0.9 % SODIUM CHLORIDE 1000ML 1,000 ML 500 ML IV ×3 (14:58→23:12)
[2023-12-15] MEDS: ONDANSETRON 4MG/2ML VIAL 4 MG IV (14:58)
[2023-12-15 15:15] LABS: Basophils # 0.1 K/mm3 (0-0.2); Basophils % 0.5 % (0.1-2.0); Eosinophils # 0.1 K/mm3 (0.0-0.4); Eosinophils % 0.5 % (0.1-12.0); Hemoglobin 12.4 g/dL (12.2-16.2); Lymphocytes # 0.6 K/mm3 (0.7-4.5); Lymphocytes % 3.4 % (10-50); Mean Corpuscular HGB Conc 31.9 g/dL (31.8-35.4); Mean Corpuscular Hemoglobin 28.8 pg (27.0-31.2); Mean Corpuscular Volume 90.3 fl (81-99); Mean Platelet Volume 8.9 fl (7.4-10.4); Monocytes # 0.3 K/mm3 (0.1-1.0); Monocytes % 1.5 % (1.7-9.3); Neutrophils # 16.5 K/mm3 (1.8-7.8); Neutrophils % 94.2 % (37.0-80.0); Platelet Count 365 K/mm3 (142-424); Red Blood Count 4.32 M/mm3 (4.20-5.40); Red Cell Distribution Width 15.8 % (11.5-17.5); White Blood Count 17.5 K/mm3 (4.8-10.8)
[2023-12-15 15:18] LABS: Albumin Level 4.3 g/dl (3.5-5.0); Chloride 107 mmol/L (98-107)
[2023-12-15 15:19] LABS: Potassium 5.8 mmoL/L (3.5-5.1); Sodium 137 mmol/L (136-145)
[2023-12-15 15:21] LABS: Alanine Aminotransferase 14 U/L (12-78); Anion Gap 23.8 mEq/L (5-15); Aspartate Amino Transferase 17 U/L (14-36); Blood Urea Nitrogen 77 mg/dl (7-17); Carbon Dioxide 12 mmol/L (22.0-30.0); Creatinine Clearance Estimated 16 mL/min (50-200); Estimated Glomerular Filt Rate 11 ml/min (>60); GFR (African American) 14 ML/MIN (>60); Lipase 109 U/L (23-300)
[2023-12-15 15:22] LABS: Albumin/Globulin Ratio 1.4 (1.1-1.8); Alkaline Phosphatase 126 U/L (38-126); Bilirubin,Total 0.5 mg/dl (0.2-1.3); Calcium 9.2 mg/dl (8.4-10.2); Globulin 3.1 g/dL (1.3-3.2); Glucose 333 mg/dl (74-100); Total Protein,Serum 7.4 g/dl (6.3-8.2)
[2023-12-15 15:33] LABS: Troponin I 0.18 ng/ml (0.00-0.034)
[2023-12-15 15:43] LABS: Acetone, Serum (Rapid) None Detected (None Detect)
[2023-12-15 15:44] LABS: MANUAL DIFFERENTIAL MANUAL DIFFERENTIAL (MANUAL DIFF)
[2023-12-15 15:58] LABS: Magnesium 2.2 mg/dl (1.6-2.3); Phosphorous 6.6 mg/dl (2.5-4.5)
[2023-12-15 16:05] LABS: Hemoglobin A1C 7.6 % (4.0-6.0)
[2023-12-15] MEDS: SODIUM CHLORIDE 0.9% 25ML BAG 25 ML IV (16:16)
[2023-12-15] MEDS: PROMETHAZINE HCL 25MG/ML 1ML VIAL 12.5 MG IV (16:16)
--- NOTE | 2023-12-15 16:34 | PC.NURSE ---
[facility] notified of admit.
[2023-12-15 16:38] LABS: Lactate Venous 1.9 mmol/L (0.4-2.0); VBG Base Excess -14.9 mmol/L (-2.4-2.3); VBG Oxygen Saturation 96.1 % (50-70); VBG PCO2 33.2 mmol/L (35-51); VBG PH 7.21 mmol/L (7.31-7.41); VBG PO2 92.6 mmol/L (28-40)
--- NOTE | 2023-12-15 16:43 | EXP.HP ---
History of Present Illness *Admission Date: 12/15/23 *History of present illness: Laxmi Cronin is a 63-year-old female with a medical history significant for CAD s/p 2 stents 12/13/2023, HFrEF 40%, CABG 2015, AICD, A-fib s/p maze and MILLY clip, bioprosthetic mitral valve replacement with chronic endocarditis on penicillin daily (used to follow with ID, lost to follow-up), CKD 3A, insulin-dependent diabetes, hypothyroidism who presents with nausea/vomiting since this morning. Patient was discharged yesterday after being hospitalized for AICD discharge, and A-fib RVR, and PCI with 2 stents placement. Patient was stable yesterday, denied chest pain, shortness of breath, tolerated p.o. intake appropriately. However, she states she began having nausea/vomiting this morning. Denies diarrhea. Workup in the ED significant for WBC 17.5, VBG 7.21 pCO2 33.1 with normal lactate, AGAP 23.8, creatinine 4.0 (baseline around 2.0), glucose 333, troponin 0.18. CXR suggests bilateral basilar pneumonia. Case discussed with ED provider and decision was made to admit patient for DKA. [facility] Disclaimer: The information contained in this section may have been updated after the patient was seen, as this information can be updated by other users. Medical History Renal insufficiency Valvular heart disease Palpitations Myocardial infarction HTN (hypertension), benign T2DM (type 2 diabetes mellitus) Depression CHF (congestive heart failure) Cancer Arrhythmia Anxiety Encounter for pre-operative cardiovascular clearance PAD (peripheral artery disease) Abnormal ankle brachial index (GOMEZ) PVD (peripheral vascular disease) HHD (hypertensive heart disease) Smoker HLD (hyperlipidemia) Carotid bruit Carotid artery stenosis CAD (coronary artery disease) Surgical History Hx of tonsillectomy History of mitral valve replacement S/P left atrial appendage ligation AICD (automatic cardioverter/defibrillator) present H/O tricuspid valve replacement History of coronary artery bypass graft Family History Other Cancer Diabetes Heart attack Social History Smoking Status: Current every day smoker tobacco type: cigarettes packs per day: 1 second hand exposure: Yes alcohol intake: never substance use type: marijuana current occupational status: unemployed Travel in the last 8 weeks: None household members: family housing: house number of children: 2 current occupational exposures/hazards: No caffeine: Yes Other Medical History Have you received the Flu Vaccine for this season: No Have you received the Pneumonia Vaccine: No Meds Home Medications and Allergies Home Medications ?Medication ?Instructions ?Recorded ?Confirmed ?Type alprazolam 0.5 mg tablet 0.5 mg PO BIDP PRN Anxiety 12/12/23 12/15/23 History cholecalciferol (vitamin D3) 25 25 mcg PO DAILY 12/12/23 12/15/23 History mcg (1,000 unit) tablet citalopram 20 mg tablet 20 mg PO DAILY 12/12/23 12/15/23 History dapagliflozin propanediol 5 mg 5 mg PO DAILY 12/12/23 12/15/23 History tablet (Farxiga) ergocalciferol (vitamin D2) 1,250 1,250 mcg PO WEEKLY 12/12/23 12/15/23 History mcg (50,000 unit) capsule insulin glargine 100 unit/mL (3 8 unit SQ HS 12/12/23 12/15/23 History mL) subcutaneous pen (Lantus Solostar U-100 Insulin) insulin human U-100 NPH-regulr 6 unit SQ BID 12/12/23 12/15/23 History 70-30 mix 100 unit/mL subcutaneous susp (Novolin 70/30 U-100 Insulin) losartan 25 mg tablet 25 mg PO DAILY 12/12/23 12/15/23 History trazodone 50 mg tablet 50 mg PO HS 12/12/23 12/15/23 History amiodarone 200 mg tablet 400 mg (2 x 200 mg) PO BID 30 days 12/14/23 12/15/23 Rx #120 tabs aspirin 81 mg tablet,delayed 81 mg PO DAILY 30 days #30 tabs 12/14/23 12/15/23 Rx release atorvastatin 40 mg tablet 40 mg PO HS 30 days #30 tabs 12/14/23 12/15/23 Rx clopidogrel 75 mg tablet 75 mg PO DAILY 30 days #30 tabs 12/14/23 12/15/23 Rx furosemide 40 mg tablet (Lasix) 40 mg PO DAILY #30 tabs 12/14/23 12/15/23 Rx New Prescriptions to Start Prescriptions: Allergies Allergy/AdvReac Type Severity Reaction Status Date / Time No Known Allergies Allergy Verified 03/01/23 10:19 Exam Data for Last 24 hours Vital signs and Labs for Last 24 Hours: Temp Pulse Resp BP Pulse Ox O2 Del Method 97.4 F L 84 18 179/71 H 99 Room Air 12/15/23 12:54 12/15/23 14:28 12/15/23 12:54 12/15/23 14:28 12/15/23 14:28 12/15/23 14:28 Laboratory Results - last 24 hr 12/15/23 14:50: WBC 17.5 H D, RBC 4.32, Hgb 12.4, Hct 39.0, MCV 90.3, MCH 28.8, MCHC 31.9, RDW 15.8, Plt Count 365, MPV 8.9, Neut % (Auto) 94.2 H, Lymph % (Auto) 3.4 L, [place] % (Auto) 1.5 L, Eos % (Auto) 0.5, Baso % (Auto) 0.5, Neut # (Auto) 16.5 H, Lymph # (Auto) 0.6 L, [place] # (Auto) 0.3, Eos # (Auto) 0.1, Baso # (Auto) 0.1, Sodium 137, Potassium 5.8 H D, Chloride 107, Carbon Dioxide 12 L, Anion Gap 23.8 H, BUN 77 H D, Creatinine 4.00 H D, Estimated Creat Clear 16, Estimated GFR 11 L*, Est GFR ( Amer) 14 L* D, Glucose 333 H, Hemoglobin A1c 7.6 H, Calcium 9.2, Phosphorus 6.6 H, Magnesium 2.2, Total Bilirubin 0.5, AST 17, ALT 14 D, Alkaline Phosphatase 126, Troponin I 0.18 H, Total Protein 7.4, Albumin 4.3 D, Globulin 3.1, Albumin/Globulin Ratio 1.4, Lipase 109, Acetone Level None detected 12/15/23 15:28: VBG pH 7.21 L, VBG pCO2 33.2 L, VBG pO2 92.6 H, VBG HCO3 13.0 L, VBG Total CO2 14.0 L, VBG O2 Saturation 96.1 H, VBG Base Excess -14.9 L, VBG Lactic Acid 1.9 I & O for Last 24 hours: Intake & Output 12/12/23 12/13/23 12/14/23 12/15/23 23:59 23:59 23:59 22:59 Weight 66.678 kg Constitutional Constitutional: no acute distress *Routine HEENT Exam Head: Present normocephalic Eye: Present EOMI and PERRL ENT: Present mucous membranes moist *Routine Neck Exam Neck: Present supple; Absent lymphadenopathy *Routine Respiratory Exam Respiratory: Present CTA bilaterally *Routine Cardiovascular Exam Cardiovascular: Present RRR *Routine Abdominal Exam Abdominal: Present soft and normoactive bowel sounds; Absent tenderness Comments: Urostomy site and bag in place. No signs of infection. *Routine Rectal Exam Rectal:: deferred *Routine Genitalia Exam Genitalia:: deferred *Routine Extremities Exam Extremities: Absent cyanosis, clubbing or edema *Routine Skin Exam Skin: Present warm; Absent rash *Routine Neurological Exam Neurological: Present alert and oriented X3 Assessment and Plan *Assessment and plan (1) Diabetic ketoacidosis: Status: Acute Category: Medical Code(s): E11.10 - Type 2 diabetes mellitus with ketoacidosis without coma (2) Paroxysmal atrial fibrillation: Status: Acute Category: Medical Code(s): I48.0 - Paroxysmal atrial fibrillation (3) STACY (acute kidney injury): Status: Acute Category: Medical Code(s): N17.9 - Acute kidney failure, unspecified (4) CAD (coronary artery disease): Status: Acute Qualifiers: Coronary Disease-Associated Artery/Lesion type: [place] artery Category: Medical Code(s): I25.10 - Atherosclerotic heart disease of [place] coronary artery without angina pectoris (5) T2DM (type 2 diabetes mellitus): Status: Acute Qualifiers: 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 Patient was discharged yesterday after being hospitalized for AICD discharge, and A-fib RVR, and PCI with 2 stents placement. Patient was stable yesterday, denied chest pain, shortness of breath, tolerated p.o. intake appropriately. However, she states she began having nausea/vomiting this morning. Denies diarrhea. Workup in the ED significant for WBC 17.5, VBG 7.21 pCO2 33.1 with normal lactate, AGAP 23.8, creatinine 4.0 (baseline around 2.0), glucose 333, troponin 0.18. CXR suggests bilateral basilar pneumonia. Case discussed with ED provider and decision was made to admit patient for DKA. #Diabetic ketoacidosis in setting of SGLTi use #Community-acquired pneumonia ? Patient states she has been coughing more, leading to intractable nausea/vomiting this morning. Alert and oriented. ? CXR suggestive of bibasilar pneumonia. WBC 17.5 on admission, though likely partially reactive in the setting of DKA. ? Initial glucose around 333, pH 7.21, AGAP 24, potassium 5.8. Patient has risk for euglycemic DKA as she takes Farxiga. Plan to discontinue on discharge. ? Initiated on DKA protocol. Giving 1 L, then reassess for volume overload in the setting of HFrEF. If hypovolemic, give another liter of fluids. ? IV insulin drip initiated. ? IV normal saline at 100 mL/h after bolus. Cautious with fluids given HFrEF. ? Transition to IV D5 1/2 NS at 100 mL/h once blood sugar less than 250. ? Once AGAP closes, bridge with SQ long-acting insulin. Patient takes Lantus 8 units at home. Start patient on a diet. If patient is tolerating diet after 2 hours of giving SQ, discontinue insulin drip. ? BMP, phosphorus, magnesium every 4 hours. ? CAP versus Farxiga possibly triggered DKA. ? Ceftriaxone, azithromycin day 1/5. ? Follow-up sputum cultures. ? Follow-up blood cultures in the setting of chronic endocarditis. ? N.p.o. except meds, water. #Elevated troponins ? Initial troponin 0.18-0.15. However, this in the setting of recent PCI and current DKA/hypovolemia on CKD. ? Follow-up EKG. ? Low concern for ACS, likely demand ischemia in addition to recent PCI #STACY on CKD 3 A ? Initial creatinine 4.0, baseline around 2.0. In the setting of hypovolemia with DKA, nausea/vomiting. IV fluids as above. ? Follow-up #CAD s/p 2 stents #A-fib s/p maze and MILLY clip #Bioprosthetic mitral valve replacement with chronic endocarditis #CABG 2016 ? Aspirin 81 mg, Plavix 75 mg, atorvastatin 40 mg. ? Amiodarone 400 mg twice daily. ? Patient is supposed to be on penicillin daily for chronic endocarditis. Follow-up blood cultures. #HFrEF ? Currently hypovolemic in the setting of DKA, nausea/vomiting. ? Hold off on diuresis at this time. ? Plan to discontinue Farxiga as a possible trigger for DKA Full code DVT prophylaxis: Lovenox 40
[2023-12-15] MEDS: CEFTRIAXONE SODIUM 1 GM in 0.9 % SODIUM CHLORIDE 50 ML IV (16:47)
[2023-12-15] MEDS: AZITHROMYCIN 500 MG in 0.9 % SODIUM CHLORIDE 250 ML 250 MG IV (16:55)
[2023-12-15 17:51] LABS: Chloride 112 mmol/L (98-107); Potassium 4.9 mmoL/L (3.5-5.1); Sodium 139 mmol/L (136-145)
[2023-12-15] MEDS: PROCHLORPERAZINE 10MG/2ML VIAL 10 MG IV (17:51)
[2023-12-15 17:54] LABS: Anion Gap 19.9 mEq/L (5-15); Blood Urea Nitrogen 73 mg/dl (7-17); Carbon Dioxide 12 mmol/L (22.0-30.0); Creatinine Clearance Estimated 17 mL/min (50-200); Estimated Glomerular Filt Rate 13 ml/min (>60); GFR (African American) 16 ML/MIN (>60)
[2023-12-15 17:55] LABS: Calcium 8.5 mg/dl (8.4-10.2); Glucose 318 mg/dl (74-100); Phosphorous 5.8 mg/dl (2.5-4.5)
[2023-12-15 18:07] LABS: Troponin I 0.15 ng/ml (0.00-0.034)
[2023-12-15] MEDS: INSULIN REGULAR, HUMAN 100 UNIT in 0.9 % SODIUM CHLORIDE 100 ML 6.06 UNIT IV (18:18)
[2023-12-15 18:22] LABS: HIV (1&2) Antibody Rapid NONREACTIVE (NONREACTIVE)
[2023-12-15] MEDS: CLOPIDOGREL 75MG TAB 75 MG PO (18:42)
[2023-12-15] MEDS: ASPIRIN EC 81MG TABLET 81 MG PO (18:42)
[2023-12-15] MEDS: 0.9% NaCl w/20mEq KCL 1,000 ML 150 ML IV (18:43)
[2023-12-15 19:11] LABS: POC Glucose,Bedside 318 (70-110)
[2023-12-15 19:11] LABS: POC Glucose,Bedside 307 (70-110)
[2023-12-15 19:46] LABS: Hypochromasia 1+; Lymphocytes % 6 % (10-50); Monocytes % 2 % (2-9); Neutrophils % 92 % (42-76); Platelet Estimate Normal; Total Cells Counted 100
[2023-12-15] MEDS: HEPARIN SODIUM 5,000 UNIT/ML VIAL 5000 UNIT SUBCUT (20:21)
[2023-12-15] MEDS: AMIODARONE 200MG TABLET 400 MG PO (20:21)
[2023-12-15 20:40] LABS: Anion Gap 19.4 mEq/L (5-15); Blood Urea Nitrogen 68 mg/dl (7-17); Calcium 8.5 mg/dl (8.4-10.2); Carbon Dioxide 11 mmol/L (22.0-30.0); Chloride 114 mmol/L (98-107); Creatinine Clearance Estimated 19 mL/min (50-200); Estimated Glomerular Filt Rate 15 ml/min (>60); GFR (African American) 18 ML/MIN (>60); Glucose 213 mg/dl (74-100); Magnesium 1.9 mg/dl (1.6-2.3); Phosphorous 4.8 mg/dl (2.5-4.5); Potassium 4.4 mmoL/L (3.5-5.1); Sodium 140 mmol/L (136-145)
[2023-12-15 20:50] LABS: Microscopic, Urine URINE MICROSCOPIC (MICROSCOPIC)
[2023-12-15 20:53] LABS: Troponin I 0.15 ng/ml (0.00-0.034)
[2023-12-15 21:06] LABS: Bilirubin,Urine Negative (Negative); Blood, Urine Negative (Negative); Color,Urine YELLOW (Yellow); Glucose,Urine (UA) Negative (Negative); Ketones,Urine Negative (Negative); Leukocyte Esterase,Urine 2+ (Negative); Nitrate,Urine POSITIVE (Negative); PH,Urine 7.5 (5.0-8.5); Protein,Urine 2+ (Negative); Urobilinogen,Urine 0.2 EU/dl (0.2)
[2023-12-15 21:24] LABS: Appearance,Urine Turbid (Clear)
[2023-12-15 21:41] LABS: Amorphous Sediment,Urine 2+ /lpf; Bacteria,Urine 3+ /lpf; WBC,Urine 50-100 #/hpf (0-3)
[2023-12-15] MEDS: D5W/0.9% NaCl w/20mEq KCL 1,000 ML 75 ML IV (22:23)
[2023-12-16] VITALS (23 sets, daily range): BP systolic 99–194; BP diastolic 51–98; PULSE 60–90; RESP 15–20; TEMP 36.4–37.5; O2SAT 97–100; BMI 26.8
[2023-12-16] MEDS: D5W/0.9% NaCl w/20mEq KCL 1,000 ML 125 ML IV (00:14)
[2023-12-16 01:04] LABS: POC Glucose,Bedside 94 (70-110)
[2023-12-16 01:04] LABS: POC Glucose,Bedside 107 (70-110)
[2023-12-16 01:04] LABS: POC Glucose,Bedside 189 (70-110)
[2023-12-16 01:04] LABS: POC Glucose,Bedside 122 (70-110)
[2023-12-16 01:04] LABS: POC Glucose,Bedside 256 (70-110)
[2023-12-16 01:04] LABS: POC Glucose,Bedside 122 (70-110)
[2023-12-16 01:37] LABS: Chloride 117 mmol/L (98-107); Sodium 139 mmol/L (136-145)
[2023-12-16 01:38] LABS: Potassium 4.3 mmoL/L (3.5-5.1)
[2023-12-16 01:40] LABS: Blood Urea Nitrogen 61 mg/dl (7-17); Creatinine Clearance Estimated 21 mL/min (50-200); Estimated Glomerular Filt Rate 16 ml/min (>60); GFR (African American) 20 ML/MIN (>60)
[2023-12-16 01:41] LABS: Anion Gap 14.3 mEq/L (5-15); Calcium 8.1 mg/dl (8.4-10.2); Carbon Dioxide 12 mmol/L (22.0-30.0); Glucose 120 mg/dl (74-100); Phosphorous 3.6 mg/dl (2.5-4.5)
[2023-12-16] MEDS: D5W/0.9% NaCl w/20mEq KCL 1,000 ML 75 ML IV (02:10)
[2023-12-16 05:39] LABS: POC Glucose,Bedside 127 (70-110)
[2023-12-16 05:40] LABS: Basophils # 0.1 K/mm3 (0-0.2); Basophils % 0.4 % (0.1-2.0); Eosinophils # 0.1 K/mm3 (0.0-0.4); Hematocrit 30.3 % (37.0-47.0); Lymphocytes # 2.1 K/mm3 (0.7-4.5); Lymphocytes % 16.7 % (10-50); Mean Corpuscular Hemoglobin 29.4 pg (27.0-31.2); Mean Corpuscular Volume 88.9 fl (81-99); Mean Platelet Volume 8.6 fl (7.4-10.4); Monocytes # 0.5 K/mm3 (0.1-1.0); Monocytes % 4.3 % (1.7-9.3); Neutrophils # 9.6 K/mm3 (1.8-7.8); Neutrophils % 77.5 % (37.0-80.0); Platelet Count 275 K/mm3 (142-424); Red Cell Distribution Width 15.9 % (11.5-17.5); White Blood Count 12.4 K/mm3 (4.8-10.8)
[2023-12-16 05:46] LABS: Chloride 119 mmol/L (98-107); Sodium 142 mmol/L (136-145)
[2023-12-16 05:47] LABS: Potassium 4.3 mmoL/L (3.5-5.1)
[2023-12-16 05:49] LABS: Blood Urea Nitrogen 57 mg/dl (7-17); Creatinine Clearance Estimated 22 mL/min (50-200); Estimated Glomerular Filt Rate 18 ml/min (>60); GFR (African American) 22 ML/MIN (>60)
[2023-12-16 05:50] LABS: Anion Gap 14.3 mEq/L (5-15); Calcium 8.4 mg/dl (8.4-10.2); Carbon Dioxide 13 mmol/L (22.0-30.0); Glucose 118 mg/dl (74-100); Magnesium 2.1 mg/dl (1.6-2.3); Phosphorous 3.5 mg/dl (2.5-4.5)
[2023-12-16 07:44] LABS: Hemoglobin 10.2 g/dL (12.2-16.2)
[2023-12-16] MEDS: CLOPIDOGREL 75MG TAB 75 MG PO (08:12)
[2023-12-16] MEDS: HEPARIN SODIUM 5,000 UNIT/ML VIAL 5000 UNIT SUBCUT (08:12)
[2023-12-16] MEDS: ASPIRIN EC 81MG TABLET 81 MG PO (08:12)
[2023-12-16] MEDS: AMIODARONE 200MG TABLET 400 MG PO ×2 (08:12→20:42)
--- NOTE | 2023-12-16 08:19 | P.CONPHA_ITS ---
Pharmacy Intervention Comments: Home medication list verified using list from previous discharge from [facility] on 12/14/23
--- NOTE | 2023-12-16 08:19 | HMH.PHAINT1 ---
Pharmacy Intervention Comments: Home medication list verified using list from previous discharge from [facility] on 12/14/23
[2023-12-16 08:20] LABS: POC Glucose,Bedside 123 (70-110)
[2023-12-16 08:55] LABS: Chloride 119 mmol/L (98-107); Potassium 4.4 mmoL/L (3.5-5.1); Sodium 142 mmol/L (136-145)
[2023-12-16 08:57] LABS: Blood Urea Nitrogen 55 mg/dl (7-17); Creatinine Clearance Estimated 25 mL/min (50-200); Estimated Glomerular Filt Rate 21 ml/min (>60); GFR (African American) 25 ML/MIN (>60)
[2023-12-16 08:58] LABS: Anion Gap 15.4 mEq/L (5-15); Calcium 8.5 mg/dl (8.4-10.2); Carbon Dioxide 12 mmol/L (22.0-30.0); Glucose 132 mg/dl (74-100); Magnesium 2.1 mg/dl (1.6-2.3); Phosphorous 3.4 mg/dl (2.5-4.5)
[2023-12-16] MEDS: INSULIN GLARGINE 100 UNITS/ML 10ML VIAL 8 UNIT SUBCUT (09:21)
[2023-12-16 09:31] LABS: POC Glucose,Bedside 140 (70-110)
[2023-12-16] MEDS: 0.9 % SODIUM CHLORIDE 1000ML 1,000 ML 75 ML IV (11:16)
[2023-12-16 11:24] LABS: POC Glucose,Bedside 158 (70-110)
[2023-12-16 13:46] LABS: Chloride 119 mmol/L (98-107); Potassium 4.8 mmoL/L (3.5-5.1); Sodium 140 mmol/L (136-145)
[2023-12-16 13:48] LABS: Blood Urea Nitrogen 52 mg/dl (7-17); Creatinine Clearance Estimated 25 mL/min (50-200); Estimated Glomerular Filt Rate 21 ml/min (>60); GFR (African American) 25 ML/MIN (>60)
[2023-12-16 13:49] LABS: Anion Gap 16.8 mEq/L (5-15); Calcium 8.5 mg/dl (8.4-10.2); Glucose 157 mg/dl (74-100); Phosphorous 3.3 mg/dl (2.5-4.5)
[2023-12-16 13:51] LABS: Carbon Dioxide 9 mmol/L (22.0-30.0)
[2023-12-16 14:10] LABS: POC Glucose,Bedside 190 (70-110)
[2023-12-16 15:08] LABS: Lactate Venous 1.4 mmol/L (0.4-2.0); VBG Base Excess -12.3 mmol/L (-2.4-2.3); VBG HCO3 15.2 mmol/L (23-30); VBG Oxygen Saturation 84.1 % (50-70); VBG PCO2 36.8 mmol/L (35-51); VBG PH 7.23 mmol/L (7.31-7.41); VBG PO2 52.5 mmol/L (28-40); VBG Total CO2 16.3 mmol/L (23-27)
[2023-12-16] MEDS: SODIUM BICARBONATE 150 MEQ in DEXTROSE 5 % IN WATER 1,000 ML 100 MEQ IV (15:19)
[2023-12-16] MEDS: LACTATED RINGERS 1000ML 500 ML IV (15:19)
[2023-12-16 15:28] LABS: POC Glucose,Bedside 280 (70-110)
[2023-12-16 15:45] LABS: Acetone, Serum (Rapid) None Detected (None Detect)
[2023-12-16 15:55] LABS: Salicylate < 1.0 mg/dL (2.0-20.0)
--- NOTE | 2023-12-16 16:38 | PC.NURSE ---
Pt has remained up to the chair for the better part of the shift. lung sounds are clear throughout bowel sounds are active in all quads. pt has tolerated ivf this shift. family is present at bedside. nad noted. pt urine is clear and yellow and draining via chronic urostomy. pt has scuds device in place. pt has not voiced any further bleeding per rectum this shift.
[2023-12-16 16:45] LABS: Ethyl Alcohol < 10 mg/dl (0-10)
[2023-12-16] MEDS: CEFTRIAXONE SODIUM 1 GM in 0.9 % SODIUM CHLORIDE 50 ML IV (17:19)
[2023-12-16] MEDS: AZITHROMYCIN 500 MG in 0.9 % SODIUM CHLORIDE 250 ML 250 MG IV (17:52)
[2023-12-16 18:20] LABS: Chloride 114 mmol/L (98-107); Potassium 3.9 mmoL/L (3.5-5.1); Sodium 139 mmol/L (136-145)
[2023-12-16 18:23] LABS: Blood Urea Nitrogen 45 mg/dl (7-17); Creatinine Clearance Estimated 26 mL/min (50-200); Estimated Glomerular Filt Rate 22 ml/min (>60); GFR (African American) 26 ML/MIN (>60)
[2023-12-16 18:24] LABS: Anion Gap 15.9 mEq/L (5-15); Calcium 8.2 mg/dl (8.4-10.2); Carbon Dioxide 13 mmol/L (22.0-30.0); Glucose 164 mg/dl (74-100)
--- NOTE | 2023-12-16 18:45 | P.PN_ITS ---
Subjective *Date: 12/16/23 *Time: 19:27 Interval history: Patient states she was nervous to eat this morning as she thinks she will get sick, but denies current nausea or vomiting overnight. But she says she will try to eat. Denies chest pain, shortness of breath Exam Data for Last 24 hours Vital signs and Labs for Last 24 Hours: Temp Pulse Resp BP Pulse Ox O2 Del Method 99.1 F 76 20 141/53 H 99 Room Air 12/16/23 16:00 12/16/23 18:00 12/16/23 18:00 12/16/23 18:00 12/16/23 18:00 12/16/23 18:00 Laboratory Results - last 24 hr 12/15/23 14:50: Total Counted 100, Neutrophils % (Manual) 92 H, Lymphocytes % (Manual) 6 L, Monocytes % (Manual) 2, Platelet Estimate Normal, Hypochromasia 1+ 12/15/23 17:55: POC Glucose 280 H 12/15/23 18:39: POC Glucose 318 H* 12/15/23 19:02: POC Glucose 307 H* 12/15/23 20:15: Sodium 140, Potassium 4.4, Chloride 114 H, Carbon Dioxide 11 L, Anion Gap 19.4 H, BUN 68 H, Creatinine 3.20 H, Estimated Creat Clear 19, Estimated GFR 15 L*, Est GFR ( Amer) 18 L*, Glucose 213 H D, Calcium 8.5, Phosphorus 4.8 H, Magnesium 1.9, Troponin I 0.15 H 12/15/23 20:17: POC Glucose 256 H 12/15/23 20:30: Urine Color Yellow, Urine Appearance Turbid, Urine pH 7.5, Ur Specific [place] 1.020, Urine Protein 2+ A, Urine Glucose (UA) Negative, Urine Ketones Negative, Urine Blood Negative, Urine Nitrate Positive, Urine Bilirubin Negative, Urine Urobilinogen 0.2, Ur Leukocyte Esterase 2+ A, Urine RBC 3-5, Urine WBC 50-100, Ur Squamous Epith Cells 3-5, Amorphous Sediment 2+, Urine Bacteria 3+, Hyaline Casts 3-5 12/15/23 21:17: POC Glucose 189 H 12/15/23 22:04: POC Glucose 122 H 12/15/23 23:06: POC Glucose 107 12/16/23 00:01: POC Glucose 94 12/16/23 00:50: Sodium 139, Potassium 4.3, Chloride 117 H, Carbon Dioxide 12 L, Anion Gap 14.3, BUN 61 H, Creatinine 2.90 H, Estimated Creat Clear 21, Estimated GFR 16 L*, Est GFR ( Amer) 20 L, Glucose 120 H D, Calcium 8.1 L, Phosphorus 3.6, Magnesium 2.0 12/16/23 00:57: POC Glucose 122 H 12/16/23 01:59: POC Glucose 127 H 12/16/23 05:13: WBC 12.4 H D, RBC 3.40 L, Hgb 10.2 L D, Hct 30.3 L, MCV 88.9, MCH 29.4, MCHC 33.0, RDW 15.9, Plt Count 275, MPV 8.6, Neut % (Auto) 77.5, Lymph % (Auto) 16.7, [place]pp % (Auto) 4.3, Eos % (Auto) 1.0, Baso % (Auto) 0.4, Neut # (Auto) 9.6 H, Lymph # (Auto) 2.1, Tripp # (Auto) 0.5, Eos # (Auto) 0.1, Baso # (Auto) 0.1, Sodium 142, Potassium 4.3, Chloride 119 H, Carbon Dioxide 13 L, Anion Gap 14.3, BUN 57 H, Creatinine 2.70 H, Estimated Creat Clear 22, Estimated GFR 18 L*, Est GFR ( Amer) 22 L, Glucose 118 H, Calcium 8.4, Phosphorus 3.5, Magnesium 2.1 12/16/23 08:09: POC Glucose 123 H 12/16/23 08:40: Sodium 142, Potassium 4.4, Chloride 119 H, Carbon Dioxide 12 L, Anion Gap 15.4 H, BUN 55 H, Creatinine 2.40 H, Estimated Creat Clear 25, Estimated GFR 21 L, Est GFR ( Amer) 25 L, Glucose 132 H, Calcium 8.5, Phosphorus 3.4, Magnesium 2.1 12/16/23 09:23: POC Glucose 140 H 12/16/23 11:17: POC Glucose 158 H 12/16/23 12:45: Sodium 140, Potassium 4.8, Chloride 119 H, Carbon Dioxide 9 L* D , Anion Gap 16.8 H, BUN 52 H, Creatinine 2.40 H, Estimated Creat Clear 25, Estimated GFR 21 L, Est GFR ( Amer) 25 L, Glucose 157 H, Calcium 8.5, Phosphorus 3.3, Magnesium 2.0 12/16/23 13:52: POC Glucose 190 H 12/16/23 14:55: VBG pH 7.23 L, VBG pCO2 36.8, VBG pO2 52.5 H, VBG HCO3 15.2 L, VBG Total CO2 16.3 L, VBG O2 Saturation 84.1 H, VBG Base Excess -12.3 L, VBG Lactic Acid 1.4, Salicylates < 1.0 L, Plasma/Serum Alcohol < 10, Acetone Level None detected 12/16/23 18:00: Sodium 139, Potassium 3.9, Chloride 114 H, Carbon Dioxide 13 L, Anion Gap 15.9 H, BUN 45 H, Creatinine 2.30 H, Estimated Creat Clear 26, Estimated GFR 22 L, Est GFR ( Amer) 26 L, Glucose 164 H, Calcium 8.2 L I & O for Last 24 hours: Intake & Output 12/13/23 12/14/23 12/15/23 12/16/23 23:59 23:59 22:59 23:59 Intake Total 180.961 / 564.699 2177.454 / 2754.454 Output Total 400 / 400 1645 / 1645 Balance -219.039 / 204.164 6806.454 / 1109.454 Weight 64.501 kg 64.501 kg Microbiology Reports for the Last 24 Hours: Microbiology 12/15/23 16:30 Blood Blood Culture - Preliminary NO GROWTH AFTER 24 HOURS 12/15/23 16:29 Blood Blood Culture - Preliminary NO GROWTH AFTER 24 HOURS Constitutional Constitutional: no acute distress *Routine HEENT Exam Head: Present normocephalic Eye: Present EOMI and PERRL ENT: Present mucous membranes moist *Routine Neck Exam Neck: Present supple; Absent lymphadenopathy *Routine Respiratory Exam Respiratory: Present CTA bilaterally *Routine Cardiovascular Exam Cardiovascular: Present RRR *Routine Abdominal Exam Abdominal: Present soft and normoactive bowel sounds; Absent tenderness Comments: Urostomy site and bag in place, no signs of infection *Routine Extremities Exam Extremities: Present edema; Absent cyanosis or clubbing *Routine Skin Exam Skin: Present warm; Absent rash *Routine Neurological Exam Neurological: Present alert and oriented X3 Assessment and Plan *Assessment and plan (1) Paroxysmal atrial fibrillation: Status: Acute Category: Medical Code(s): I48.0 - Paroxysmal atrial fibrillation (2) STACY (acute kidney injury): Status: Acute Category: Medical Code(s): N17.9 - Acute kidney failure, unspecified (3) CAD (coronary artery disease): Status: Acute Qualifiers: Coronary Disease-Associated Artery/Lesion type: [place] artery Category: Medical Code(s): I25.10 - Atherosclerotic heart disease of [place] coronary artery without angina pectoris (4) T2DM (type 2 diabetes mellitus): Status: Acute Qualifiers: Chronic kidney disease stage 3 subtype: stage 3a (GFR 45-59) 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: with tank terminal gauger use Category: Medical Code(s): E11.9 - Type 2 diabetes mellitus without complications (5) Community acquired pneumonia: Status: Acute Category: Medical Code(s): J18.9 - Pneumonia, unspecified organism (6) UTI (urinary tract infection): Status: Acute Qualifiers: Hematuria presence: with hematuria Urinary tract infection type: site unspecified Qualified Code(s): N39.0 - Urinary tract infection, site not specified; R31.9 - Hematuria, unspecified Category: Medical Code(s): N39.0 - Urinary tract infection, site not specified (7) High anion gap metabolic acidosis: Status: Acute Category: Medical Code(s): E87.29 - Other acidosis (8) CKD (chronic kidney disease): Status: Acute Category: Medical Code(s): N18.9 - Chronic kidney disease, unspecified Plan Laxmi Cronin is a 63-year-old female with a medical history significant for CAD s/p 2 stents 12/13/2023, HFrEF 40%, CABG 2016, AICD, A-fib s/p maze and MILLY clip, bioprosthetic mitral valve replacement with chronic endocarditis on penicillin daily (used to follow with ID, lost to follow-up), CKD 3A, insulin- dependent diabetes, hypothyroidism who presents with nausea/vomiting since this morning. Patient was discharged yesterday after being hospitalized for AICD discharge, and A-fib RVR, and PCI with 2 stents placement. Patient was stable yesterday, denied chest pain, shortness of breath, tolerated p.o. intake appropriately. However, she states she began having nausea/vomiting this morning. Denies diarrhea. Workup in the ED significant for WBC 17.5, VBG 7.21 pCO2 33.1 with normal lactate, AGAP 23.8, creatinine 4.0 (baseline around 2.0), glucose 333, troponin 0.18. CXR suggests bilateral basilar pneumonia. Case discussed with ED provider and decision was made to admit patient for what was initially thought to be DKA, but acetone resulted in being negative. #High anion gap metabolic acidosis #STACY on CKD 3A ? Initial pH 7.21, AGAP 24, bicarb 12, BUN 77, potassium 5.8 in the setting of STACY on CKD 3A. ? Initial creatinine 4.0, baseline around 2.0. In the setting of nausea/vomiting in the setting of UTI, pneumonia and PCI on 12/13/2023. IV fluids as above. ? Initially thought to be DKA, but acetone resulted in being negative. Was initially on DKA protocol with fluids, insulin drip but transitioned off today. ? STACY on CKD and hyperuremia seem to be most likely etiology of high anion gap metabolic acidosis. Workup negative for lactic acid, ethyl alcohol, salicylates, ketones. Unlikely to be renal tubular acidosis with normal urine pH and given elevated AGAP. ? Creatinine and AGAP improved to 2.3 and 14.3 respectively after fluid resuscitation, being mindful of HFrEF 40%. ? However, AGAP increased to 16.8 and bicarb down to 9 on recheck this afternoon. Repeat VBG pH 7.23 with normal lactate. ? Given additional 500 mL LR bolus and IV bicarb drip initially started 100 mL/h, recheck BMP showed improvement in AGAP to 15.2. ? Continue bicarb drip at 75 mL/h in the setting of HFrEF. Recheck BMP at 10 PM. ? Potassium currently 3.9. ? Continue to follow morning VBG, BMP, magnesium. ? Avoid nephrotoxic medications. #Community-acquired pneumonia ? CXR suggestive of bibasilar pneumonia. WBC 17.5 on admission, though likely partially reactive in the setting nausea/vomiting. ? WBC improved to 12.4 today. ? Ceftriaxone, azithromycin day 2/. ? Follow-up sputum cultures. #UTI ? Urinalysis strongly suggestive of UTI in the setting of urostomy. ? Ceftriaxone day 2/5. ? Follow-up urine cultures #Rectal bleeding ? Patient states that she noted some rectal bleeding while wiping today. - H/H currently 10.2, follow-up repeat H&H given bleeding risk in the setting of uremia. - Continue to monitor. #Elevated troponins ? Initial troponin 0.18-0.15. However, this in the setting of recent PCI and STACY on CKD. ? Low concern for ACS, likely demand ischemia in addition to recent PCI. #CAD s/p 2 stents #A-fib s/p maze and MILLY clip #Bioprosthetic mitral valve replacement with chronic endocarditis #CABG 2015 ? Aspirin 81 mg, Plavix 75 mg, atorvastatin 40 mg. ? Amiodarone 400 mg twice daily. ? Patient is supposed to be on penicillin daily for chronic endocarditis. ? Follow-up blood cultures in the setting of chronic endocarditis, NGTD 24 hours. #HFrEF ? Hold off on diuresis at this time, GDMT in the setting of STACY on CKD. ? No signs of volume overload. Full code DVT prophylaxis: Heparin 3 times daily
--- NOTE | 2023-12-16 19:35 | PC.NURSE ---
New order noted and BiCarb drip increased to 75mls / hr per order.
[2023-12-16 20:34] LABS: POC Glucose,Bedside 128 (70-110)
[2023-12-16 20:34] LABS: POC Glucose,Bedside 130 (70-110)
[2023-12-16 20:34] LABS: POC Glucose,Bedside 278 (70-110)
[2023-12-16 20:34] LABS: POC Glucose,Bedside 125 (70-110)
[2023-12-16 20:34] LABS: POC Glucose,Bedside 125 (70-110)
[2023-12-16 20:34] LABS: POC Glucose,Bedside 120 (70-110)
[2023-12-16] MEDS: INSULIN GLARGINE 100 UNITS/ML 3ML FLEXPEN 8 UNIT SUBCUT (20:39)
[2023-12-16] MEDS: TRAZODONE 50MG TABLET 50 MG PO (20:42)
[2023-12-16] MEDS: ATORVASTATIN 40MG TABLET 40 MG PO (20:42)
[2023-12-16] MEDS: humaLOG 100 UNITS/ML 10ML VIAL (SSI) SUBCUT (20:50)
--- NOTE | 2023-12-16 21:18 | PC.NURSE ---
Spoke with Dr. Brunson about insulin mix pen order, stated we have given sliding sale lispro per low intensity protocol and also the glargine pen order. Boy stated to give the flexpen 75/5 also at this time.
[2023-12-16] MEDS: humaLOG MIX 75/25 3ML FLEXPEN 6 UNIT SUBCUT (21:34)
[2023-12-16] MEDS: ALPRAZolam 0.5MG TABLET 0.5 MG PO (22:01)
[2023-12-16] MEDS: PROCHLORPERAZINE 10MG/2ML VIAL 10 MG IV (22:06)
[2023-12-16 22:50] LABS: Chloride 114 mmol/L (98-107); Sodium 140 mmol/L (136-145)
[2023-12-16 22:51] LABS: Potassium 3.6 mmoL/L (3.5-5.1)
[2023-12-16 22:53] LABS: Blood Urea Nitrogen 44 mg/dl (7-17); Creatinine Clearance Estimated 29 mL/min (50-200); Estimated Glomerular Filt Rate 24 ml/min (>60); GFR (African American) 29 ML/MIN (>60)
[2023-12-16 22:54] LABS: Anion Gap 15.6 mEq/L (5-15); Calcium 8.4 mg/dl (8.4-10.2); Carbon Dioxide 14 mmol/L (22.0-30.0); Glucose 120 mg/dl (74-100)
[2023-12-16 22:56] LABS: Hematocrit 32.2 % (37.0-47.0); Hemoglobin 10.3 g/dL (12.2-16.2)
--- NOTE | 2023-12-16 23:16 | PC.NURSE ---
Reported new BMP results to Dr Brunson. No new orders
[2023-12-17] VITALS (11 sets, daily range): BP systolic 108–192; BP diastolic 50–81; PULSE 60–88; RESP 18; TEMP 36.6–36.9; O2SAT 95–99; BMI 26.8
[2023-12-17] MEDS: PROCHLORPERAZINE 10MG/2ML VIAL 10 MG IV (05:17)
[2023-12-17 06:05] LABS: POC Glucose,Bedside 139 (70-110)
[2023-12-17] MEDS: SODIUM BICARBONATE 150 MEQ in DEXTROSE 5 % IN WATER 1,000 ML 75 MEQ IV (06:23)
--- NOTE | 2023-12-17 06:29 | PC.NURSE ---
Patient remains a/o able to voice needs to staff. Rested some throughout the night had to be medicated twice for nausea. Remains on BiCarb drip at 75mls / hr. Reviewed poc and d/c goals, patient v/u and has no new c/o.
[2023-12-17 07:19] LABS: Basophils # 0.1 K/mm3 (0-0.2); Basophils % 0.6 % (0.1-2.0); Eosinophils # 0.3 K/mm3 (0.0-0.4); Eosinophils % 2.8 % (0.1-12.0); Hematocrit 33.8 % (37.0-47.0); Hemoglobin 11.2 g/dL (12.2-16.2); Lymphocytes # 1.3 K/mm3 (0.7-4.5); Lymphocytes % 12.5 % (10-50); Mean Corpuscular Volume 87.9 fl (81-99); Mean Platelet Volume 8.2 fl (7.4-10.4); Monocytes # 0.5 K/mm3 (0.1-1.0); Monocytes % 4.7 % (1.7-9.3); Neutrophils # 8.4 K/mm3 (1.8-7.8); Neutrophils % 79.5 % (37.0-80.0); Platelet Count 279 K/mm3 (142-424); Red Blood Count 3.84 M/mm3 (4.20-5.40); White Blood Count 10.5 K/mm3 (4.8-10.8)
[2023-12-17 07:23] LABS: Anion Gap 12.5 mEq/L (5-15); Blood Urea Nitrogen 39 mg/dl (7-17); Calcium 8.5 mg/dl (8.4-10.2); Carbon Dioxide 20 mmol/L (22.0-30.0); Chloride 113 mmol/L (98-107); Creatinine Clearance Estimated 30 mL/min (50-200); Estimated Glomerular Filt Rate 25 ml/min (>60); GFR (African American) 31 ML/MIN (>60); Glucose 121 mg/dl (74-100); Magnesium 1.9 mg/dl (1.6-2.3); Potassium 3.5 mmoL/L (3.5-5.1); Sodium 142 mmol/L (136-145)
[2023-12-17] MEDS: CLOPIDOGREL 75MG TAB 75 MG PO (08:21)
[2023-12-17] MEDS: CITALOPRAM 20MG TABLET 20 MG PO (08:21)
[2023-12-17] MEDS: ASPIRIN EC 81MG TABLET 81 MG PO (08:21)
[2023-12-17] MEDS: AMIODARONE 200MG TABLET 400 MG PO ×2 (08:21→20:53)
[2023-12-17] MEDS: humaLOG MIX 75/25 3ML FLEXPEN 6 UNIT SUBCUT ×2 (08:22→16:30)
[2023-12-17 08:25] LABS: Lactate Venous 1.4 mmol/L (0.4-2.0); VBG Base Excess -5.6 mmol/L (-2.4-2.3); VBG HCO3 18.7 mmol/L (23-30); VBG Oxygen Saturation 81.6 % (50-70); VBG PCO2 28.6 mmol/L (35-51); VBG PH 7.43 mmol/L (7.31-7.41); VBG PO2 38.3 mmol/L (28-40); VBG Total CO2 19.6 mmol/L (23-27)
[2023-12-17 09:28] LABS: HCV Ab Non Reactive (Non Reactive)
[2023-12-17] MEDS: METOCLOPRAMIDE 5MG TABLET 5 MG PO ×3 (10:03→20:53)
[2023-12-17] MEDS: SENNOSIDES 8.6MG/DOCUSATE 50MG TABLET 1 TAB PO ×2 (10:03→20:53)
--- NOTE | 2023-12-17 10:21 | HMH.PTEV ---
Physical Therapy Evaluation Rehab PT IP Evaluation Start: 12/17/23 09:13 Freq: ONCE Status: Active Protocol: Document 12/17/23 10:11 DEANA (Rec: 12/17/23 10:21 DEANA [id number]) Subjective/History History History Pt is a 63-year-old female with a medical history significant for CAD s/p 2 stents 12/13/2023, HFrEF 40%, CABG 2016, AICD, A-fib s/p maze and MILLY clip, bioprosthetic mitral valve replacement with chronic endocarditis who presents w/ nausea. Pt states she lives in a 1-story home without any steps/stairs. Pt denies using an assistive device at home and was previously independent w/ ADLs. Subjective Subjective Pt presents sitting in bedside chair this morning. Pt denies numbness and/or tingling in LE. Pt is x3 oriented and consents to therapy services. New diagnosis of cancer in past 12 No months? Rehab PT IP Eval Objective Appearance Patient Behavior Appropriate,Cooperative Patient Orientation Person,Place,Birthday Difficulty following instructions none Speech Pattern Clear,Appropriate,Coherent Ambulation Patient Able to Ambulate Yes Ambulation Observation IP General Gait Pattern Observation No Deviations/Normal Ambulation Distance (feet) 10 Ambulation Assistive Device None Ambulation Ability Supervision/Stand by Balance Ability to Arise Able, uses arms to help Sitting Balance Steady, safe Standing Balance Steady, wide stance Dynamic Sitting Balance Ability Good Dynamic Standing Balance Ability Good Transfers Chair Transfer Ability Independent Sit to Stand Chair Transfer Ability Contact Guard/Hand Hold Rehab PT IP prob,goals,plan Problems Date of Evaluation: 12/17/23 Discharge Plan PT Discharge Plan Currently, PT services are not indicated due to patient's functional independence w/ transfers and ambulation. Eval Complexity Eval Charge Codes 83557 - High Complexity PHYSICIAN CERTIFICATION: I certify the specified therapy services for Laxmi Cronin are required, authorized, and reviewed every 30 days.
[2023-12-17] MEDS: humaLOG 100 UNITS/ML 10ML VIAL (SSI) SUBCUT (11:19)
--- NOTE | 2023-12-17 11:57 | HMH.OTEV ---
OT Inpatient Evaluation Rehab OT IP Evaluation Start: 12/17/23 09:13 Freq: ONCE Status: Active Protocol: Document 12/17/23 11:55 GLENN (Rec: 12/17/23 11:57 GLENN [id number]) Rehab OT IP Assessment Subjective History Laxmi Cronin is a 63- year-old female with a medical history significant for CAD s /p 2 stents 12/13/2023, HFrEF 40%, CABG 2016, AICD, A-fib s/ p maze and MILLY clip, bioprosthetic mitral valve replacement with chronic endocarditis on penicillin daily (used to follow with ID, lost to follow-up), CKD 3A, insulin-dependent diabetes, hypothyroidism who presents with nausea/vomiting since this morning. Patient was discharged yesterday after being hospitalized for AICD discharge, and A-fib RVR, and PCI with 2 stents placement. Patient was stable yesterday, denied chest pain, shortness of breath, tolerated p.o. intake appropriately. However , she states she began having nausea/vomiting this morning. Denies diarrhea. Workup in the ED significant for WBC 17. 5, VBG 7.21 pCO2 33.1 with normal lactate, AGAP 23.8, creatinine 4.0 (baseline around 2.0), glucose 333, troponin 0.18. CXR suggests bilateral basilar pneumonia. Case discussed with ED provider and decision was made to admit patient for what was initially thought to be DKA, but acetone resulted in being negative. #High anion gap metabolic acidosis #STACY on CKD 3A ? Initial pH 7.21, AGAP 24, bicarb 12, BUN 77, potassium 5 .8 in the setting of STACY on CKD 3A. ? Initial creatinine 4.0, baseline around 2.0. In the setting of nausea/vomiting in the setting of UTI, pneumonia and PCI on 12/13/2023. IV fluids as above. ? Initially thought to be DKA, but acetone resulted in being negative. Was initially on DKA protocol with fluids, insulin drip but transitioned off today. ? STACY on CKD and hyperuremia seem to be most likely etiology of high anion gap metabolic acidosis. Workup negative for lactic acid, ethyl alcohol, salicylates, ketones. Unlikely to be renal tubular acidosis with normal urine pH and given elevated AGAP. ? Creatinine and AGAP improved to 2.3 and 14.3 respectively after fluid resuscitation, being mindful of HFrEF 40%. ? However, AGAP increased to 16.8 and bicarb down to 9 on recheck this afternoon. Repeat VBG pH 7.23 with normal lactate. ? Given additional 500 mL LR bolus and IV bicarb drip initially started 100 mL/h, recheck BMP showed improvement in AGAP to 15.2. ? Continue bicarb drip at 75 mL/h in the setting of HFrEF. Recheck BMP at 10 PM. ? Potassium currently 3.9. ? Continue to follow morning VBG, BMP, magnesium. ? Avoid nephrotoxic medications. #Community-acquired pneumonia ? CXR suggestive of bibasilar pneumonia. WBC 17.5 on admission, though likely partially reactive in the setting nausea/vomiting. ? WBC improved to 12.4 today. ? Ceftriaxone, azithromycin day 2. ? Follow-up sputum cultures. #UTI ? Urinalysis strongly suggestive of UTI in the setting of urostomy. ? Ceftriaxone day 2. ? Follow-up urine cultures #Rectal bleeding ? Patient states that she noted some rectal bleeding while wiping today. - H/H currently 10.2, follow- up repeat H&H given bleeding risk in the setting of uremia. - Continue to monitor. #Elevated troponins ? Initial troponin 0.18-0.15. However, this in the setting of recent PCI and STACY on CKD. ? Low concern for ACS, likely demand ischemia in addition to recent PCI. #CAD s/p 2 stents #A-fib s/p maze and MILLY clip #Bioprosthetic mitral valve replacement with chronic endocarditis #CABG 2015 ? Aspirin 81 mg, Plavix 75 mg, atorvastatin 40 mg. ? Amiodarone 400 mg twice daily. ? Patient is supposed to be on penicillin daily for chronic endocarditis. ? Follow-up blood cultures in the setting of chronic endocarditis, NGTD 24 hours. #HFrEF ? Hold off on diuresis at this time, GDMT in the setting of STACY on CKD. ? No signs of volume overload. Patient lives in 1 story home with family. Independent with all ADLs and fx'l mobility prior to hosptial. FAmily assist with transportation as needed. Subjective I can get up. Analysis Patient's safety awareness to complete transfers, fx'l mobility and ADLs. Patient completed all tasks independently. No LOB noted. Good dynamic standing balance. Objective Patient Orientation Person,Name,Age,Birthday,Year Right Upper Extremity Gross ROM WFL Left Upper Extremity Gross ROM WFL Transfer Training Sit/Stand/Pivot Transfer Assist Level Independent Chair Transfer Ability Independent Chair Transfer Technique Sit to/from Ambulatory Chair Transfer Assistive Devices None Upper Body Dressing Ability Independent Rehab OT IP prob,goals,plan Problems Date of Evaluation: 12/17/23 Rehab Potential Rehab Potential Innapropriate for Skilled Therapy Equipment Needs Assistive Devices None / NA Discharge Plan OT Discharge Plan Patient appears to be at baseline. Independent with ADLs and fx'l mobility. Return home after medical d/c. Eval Complexity Eval Charge Codes 53970 - Low Complexity PHYSICIAN CERTIFICATION: I certify the specified therapy services for Laxmi Cronin are required, authorized, and reviewed every 30 days.
[2023-12-17] MEDS: SODIUM BICARBONATE 650MG TABLET 650 MG PO ×2 (12:27→20:52)
[2023-12-17] MEDS: AZITHROMYCIN 250MG TABLET 500 MG PO (12:27)
--- NOTE | 2023-12-17 13:00 | PC.NURSE ---
Took over care of pt from Chuy.
[2023-12-17] MEDS: SODIUM CHLORIDE 3% 15ML NEB 3 ML IH (13:51)
[2023-12-17 16:12] LABS: POC Glucose,Bedside 136 (70-110)
[2023-12-17] MEDS: CEFTRIAXONE SODIUM 1 GM in 0.9 % SODIUM CHLORIDE 50 ML IV (16:21)
[2023-12-17 16:37] LABS: POC Glucose,Bedside 155 (70-110)
--- NOTE | 2023-12-17 17:12 | PC.NURSE ---
Pt A&Ox4. She has not c/o nausea since starting PO reglan. Bicarb drip is turned off and pt is now on PO bicarb. Pt up to bedside chair for meals. Tolerating diabetic diet well. She is managing her urostomy on her own and is a standby assist for transfers. Pt has no complaints at this time, sitting in bedside chair with call light in reach.
--- NOTE | 2023-12-17 19:00 | P.PN_ITS ---
Subjective *Date: 12/17/23 *Time: 22:44 Interval history: Patient stable on room air. Denies any chest pain or shortness of breath. Tolerating breakfast. Given her clinical improvement, will de-escalate from stepdown to MedSurg level of care. Kidney function appears to have returned to baseline. Awaiting therapy taurus's Medical Exam Vital signs and Labs for Last 24 Hours: Vital Signs Temp Pulse Pulse Resp BP Pulse Ox O2 Del Method 12/17/23 18:29 Room Air 12/17/23 17:00 Room Air 12/17/23 16:00 60 12/17/23 16:00 98.1 F 70 18 148/69 H 97 Room Air 12/17/23 15:00 Room Air 12/17/23 13:51 78 18 12/17/23 13:00 Room Air 12/17/23 12:00 70 12/17/23 11:43 98.4 F 12/17/23 11:00 Room Air 12/17/23 10:00 88 18 167/74 H 99 Room Air 12/17/23 09:00 Room Air 12/17/23 08:00 80 12/17/23 08:00 97.8 F 12/17/23 08:00 80 99 Room Air 12/17/23 06:50 Room Air 12/17/23 06:00 80 18 192/81 H 99 Room Air 12/17/23 05:00 Room Air 12/17/23 04:00 63 12/17/23 04:00 64 18 111/58 L 98 Room Air 12/17/23 02:53 Room Air 12/17/23 02:00 67 18 132/69 95 Room Air 12/17/23 01:00 Room Air 12/17/23 00:00 70 12/17/23 00:00 97.9 F 12/17/23 00:00 68 18 108/50 L 96 Room Air 12/16/23 23:00 Room Air 12/16/23 22:00 87 20 194/98 H 99 Room Air 12/16/23 21:00 Room Air 12/16/23 20:00 75 12/16/23 20:00 98.2 F 12/16/23 19:59 74 18 135/65 98 Room Air 12/16/23 19:40 97 Room Air O2 Flow Rate 12/17/23 18:29 12/17/23 17:00 12/17/23 16:00 12/17/23 16:00 12/17/23 15:00 12/17/23 13:51 12/17/23 13:00 12/17/23 12:00 12/17/23 11:43 12/17/23 11:00 12/17/23 10:00 12/17/23 09:00 12/17/23 08:00 12/17/23 08:00 12/17/23 08:00 12/17/23 06:50 12/17/23 06:00 12/17/23 05:00 12/17/23 04:00 12/17/23 04:00 12/17/23 02:53 97 12/17/23 02:00 12/17/23 01:00 12/17/23 00:00 12/17/23 00:00 12/17/23 00:00 12/16/23 23:00 12/16/23 22:00 12/16/23 21:00 12/16/23 20:00 12/16/23 20:00 12/16/23 19:59 12/16/23 19:40 Intake and Output 12/17/23 12/17/23 12/17/23 07:59 15:59 23:59 Intake Total 360 / 1170 600 / 1170 210 / 1170 Output Total 800 / 1900 750 / 1900 350 / 1900 Balance -440 / -730 -150 / -730 -140 / -730 Intake: Intake, Oral Amount 360 / 1170 600 / 1170 210 / 1170 Output: Output, Urine Amount 800 / 1900 750 / 1900 350 / 1900 Other: Number of Unmeasured Voids 0 0 0 Weight 64.501 kg Patient Weight 12/17/23 23:59 Weight 64.501 kg Laboratory Results - last 24 hr 12/15/23 14:50: Hepatitis C Antibody Non reactive 12/16/23 03:14: POC Glucose 130 H 12/16/23 04:15: POC Glucose 125 H 12/16/23 05:12: POC Glucose 120 H 12/16/23 06:16: POC Glucose 125 H 12/16/23 07:15: POC Glucose 128 H 12/16/23 17:20: POC Glucose 155 H 12/16/23 20:27: POC Glucose 278 H 12/16/23 22:30: Hgb 10.3 L, Hct 32.2 L, Sodium 140, Potassium 3.6, Chloride 114 H, Carbon Dioxide 14 L, Anion Gap 15.6 H, BUN 44 H, Creatinine 2.10 H, Estimated Creat Clear 29, Estimated GFR 24 L, Est GFR ( Amer) 29 L, Glucose 120 H D , Calcium 8.4 12/17/23 05:57: POC Glucose 139 H 12/17/23 06:00: VBG pH 7.43 H, VBG pCO2 28.6 L, VBG pO2 38.3, VBG HCO3 18.7 L, VBG Total CO2 19.6 L, VBG O2 Saturation 81.6 H, VBG Base Excess -5.6 L, VBG Lactic Acid 1.4 12/17/23 06:48: WBC 10.5, RBC 3.84 L, Hgb 11.2 L, Hct 33.8 L, MCV 87.9, MCH 29.0, MCHC 33.0, RDW 16.0, Plt Count 279, MPV 8.2, Neut % (Auto) 79.5, Lymph % (Auto) 12.5, [place] % (Auto) 4.7, Eos % (Auto) 2.8, Baso % (Auto) 0.6, Neut # (Auto) 8.4 H, Lymph # (Auto) 1.3, [place] # (Auto) 0.5, Eos # (Auto) 0.3, Baso # (Auto) 0.1, Sodium 142, Potassium 3.5, Chloride 113 H, Carbon Dioxide 20 L, Anio n Gap 12.5, BUN 39 H, Creatinine 2.00 H, Estimated Creat Clear 30, Estimated GFR 25 L, Est GFR ( Amer) 31 L, Glucose 121 H, Calcium 8.5, Magnesium 1.9 12/17/23 16:05: POC Glucose 136 H I & O for Labs for Last 24 Hours: Intake & Output 12/14/23 12/15/23 12/16/23 12/17/23 23:59 22:59 23:59 23:59 Intake Total 180.961 / 652.469 7468.454 / 4108.454 1170 / 1170 Output Total 400 / 400 2345 / 2745 1900 / 1900 Balance -219.039 / 678.366 2208.454 / 1363.454 -730 / -730 Weight 64.501 kg 64.501 kg 64.501 kg Microbiology Reports for the Last 24 Hours: Microbiology 12/15/23 16:30 Blood Blood Culture - Preliminary NO GROWTH AFTER 48 HOURS 12/15/23 16:29 Blood Blood Culture - Preliminary NO GROWTH AFTER 48 HOURS 12/15/23 20:30 Urine,Suprapubic Urine Culture - Preliminary Constitutional: Present average body habitus, chronically ill appearing and cooperative Head: Present atraumatic and normocephalic ENT: Present normal exam Neck: Present normal inspection Respiratory: Present normal respiratory effort; Absent rhonchi, wheezes or crackles Cardiac: Present Reg Rate and Rhythm GI: Present normal bowel sounds; Absent tenderness Extremities: Present normal inspection and full ROM; Absent edema Skin: Present intact; Absent erythema Neuro: Present Grossly Intact, alert, awake, oriented x 3 and moves all extremities Assessment and Plan *Assessment and plan (1) Paroxysmal atrial fibrillation: Status: Acute Category: Medical Code(s): I48.0 - Paroxysmal atrial fibrillation (2) STACY (acute kidney injury): Status: Acute Category: Medical Code(s): N17.9 - Acute kidney failure, unspecified (3) CAD (coronary artery disease): Status: Acute Qualifiers: Coronary Disease-Associated Artery/Lesion type: [place] artery Category: Medical Code(s): I25.10 - Atherosclerotic heart disease of [place] coronary artery without angina pectoris (4) T2DM (type 2 diabetes mellitus): Status: Acute 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: with care home use Chronic kidney disease stage 3 subtype: stage 3a (GFR 45-59) Category: Medical Code(s): E11.9 - Type 2 diabetes mellitus without complications (5) Community acquired pneumonia: Status: Acute Category: Medical Code(s): J18.9 - Pneumonia, unspecified organism (6) UTI (urinary tract infection): Status: Acute Qualifiers: Hematuria presence: with hematuria Urinary tract infection type: site unspecified Qualified Code(s): N39.0 - Urinary tract infection, site not specified; R31.9 - Hematuria, unspecified Category: Medical Code(s): N39.0 - Urinary tract infection, site not specified (7) High anion gap metabolic acidosis: Status: Acute Category: Medical Code(s): E87.29 - Other acidosis (8) CKD (chronic kidney disease): Status: Acute Category: Medical Code(s): N18.9 - Chronic kidney disease, unspecified Plan Laxmi Cronin is a 63-year-old female with a medical history significant for CAD s/p 2 stents 12/13/2023, HFrEF 40%, CABG 2016, AICD, A-fib s/p maze and MILLY clip, bioprosthetic mitral valve replacement with chronic endocarditis on penicillin daily (used to follow with ID, lost to follow-up), CKD 3A, insulin- dependent diabetes, hypothyroidism who presents with nausea/vomiting since this morning. Patient was discharged yesterday after being hospitalized for AICD discharge, and A-fib RVR, and PCI with 2 stents placement. Patient continues to be stable. Tolerating p.o. intake. No further emesis. White count normalized. Kidney function at baseline. Being evaluated by therapy today. Stable on room air this morning. Adjustments made to insulin regimen. Continues to require inpatient admission, anticipate discharge in the next 24 to 48 hours. Problems addressed as follows: #High anion gap metabolic acidosis #STACY on CKD 3A ? Initial pH 7.21, AGAP 24, bicarb 12, BUN 77, potassium 5.8 in the setting of STACY on CKD 3A. ? Initial creatinine 4.0, baseline around 2.0. In the setting of nausea/vomiting in the setting of UTI, pneumonia and PCI on 12/13/2023. IV fluids as above. ? Initially thought to be DKA, but acetone resulted in being negative. Was initially on DKA protocol with fluids, insulin drip but transitioned off today. ? STACY on CKD and hyperuremia seem to be most likely etiology of high anion gap metabolic acidosis. Workup negative for lactic acid, ethyl alcohol, salicylates, ketones. Unlikely to be renal tubular acidosis with normal urine pH and given elevated AGAP. ? Creatinine improved to 2.0, BUN 37. Back to baseline for patient. Potassium 3.5, magnesium 1.9. Discontinue bicarb drip. Initiate p.o. bicarbonate 650 mg 3 times a day. -Repeat CMP, magnesium ordered for the morning #Community-acquired pneumonia ? CXR suggestive of bibasilar pneumonia. WBC 17.5 on admission, though likely partially reactive in the setting nausea/vomiting. ? WBC improved to normal at 10.5. ? Ceftriaxone, azithromycin day 3/5. ? Follow-up sputum cultures. #UTI ? Urinalysis strongly suggestive of UTI in the setting of urostomy. ? Ceftriaxone day 3/5. ? Follow-up urine cultures #Rectal bleeding ? Patient states that she noted some rectal bleeding while wiping, no further episodes. Hemoglobin remained stable, 11.2 this morning. Repeat CBC ordered for the morning. #Elevated troponins ? Initial troponin 0.18-0.15. However, this in the setting of recent PCI and STACY on CKD. No chest pain. likely demand ischemia in addition to recent PCI. #CAD s/p 2 stents #A-fib s/p maze and MILLY clip #Bioprosthetic mitral valve replacement with chronic endocarditis #CABG 2015 ? Aspirin 81 mg, Plavix 75 mg, atorvastatin 40 mg. ? Amiodarone 400 mg twice daily. Patient is supposed to be on penicillin daily for chronic endocarditis. ? Follow-up blood cultures in the setting of chronic endocarditis, NGTD #HFrEF ? Hold off on diuresis at this time, GDMT in the setting of STACY on CKD. ? No signs of volume overload. Full code DVT prophylaxis: Heparin 3 times daily Diabetic diet
[2023-12-17] MEDS: TRAZODONE 50MG TABLET 50 MG PO (20:52)
[2023-12-17] MEDS: ATORVASTATIN 40MG TABLET 40 MG PO (20:52)
[2023-12-17] MEDS: INSULIN GLARGINE 100 UNITS/ML 3ML FLEXPEN 8 UNIT SUBCUT (20:53)
[2023-12-18] VITALS: BP 135/77; PULSE 64; PULSE 70; RESP 16; TEMP 36.4; O2SAT 96
[2023-12-18 01:17] LABS: POC Glucose,Bedside 207 (70-110)
[2023-12-18 01:17] LABS: POC Glucose,Bedside 129 (70-110)
[2023-12-18 04:00] VITALS: BP 150/70; PULSE 60; PULSE 72; RESP 16; TEMP 36.4; O2SAT 97; BMI 29.0
[2023-12-18] MEDS: METOCLOPRAMIDE 5MG TABLET 5 MG PO ×2 (05:49→11:22)
[2023-12-18 05:52] LABS: POC Glucose,Bedside 82 (70-110)
[2023-12-18 07:07] LABS: Basophils # 0.1 K/mm3 (0-0.2); Basophils % 0.7 % (0.1-2.0); Eosinophils # 0.3 K/mm3 (0.0-0.4); Eosinophils % 2.8 % (0.1-12.0); Hematocrit 30.7 % (37.0-47.0); Lymphocytes # 1.7 K/mm3 (0.7-4.5); Lymphocytes % 18.4 % (10-50); Mean Corpuscular HGB Conc 32.6 g/dL (31.8-35.4); Mean Corpuscular Hemoglobin 28.7 pg (27.0-31.2); Mean Corpuscular Volume 88.1 fl (81-99); Mean Platelet Volume 8.2 fl (7.4-10.4); Monocytes # 0.4 K/mm3 (0.1-1.0); Monocytes % 4.6 % (1.7-9.3); Neutrophils # 6.8 K/mm3 (1.8-7.8); Neutrophils % 73.6 % (37.0-80.0); Platelet Count 293 K/mm3 (142-424); Red Blood Count 3.49 M/mm3 (4.20-5.40); Red Cell Distribution Width 16.2 % (11.5-17.5); White Blood Count 9.2 K/mm3 (4.8-10.8)
[2023-12-18 07:30] LABS: Anion Gap 8.5 mEq/L (5-15); Blood Urea Nitrogen 30 mg/dl (7-17); Calcium 8.4 mg/dl (8.4-10.2); Carbon Dioxide 27 mmol/L (22.0-30.0); Chloride 110 mmol/L (98-107); Creatinine Clearance Estimated 36 mL/min (50-200); Estimated Glomerular Filt Rate 29 ml/min (>60); GFR (African American) 35 ML/MIN (>60); Glucose 64 mg/dl (74-100); Magnesium 1.9 mg/dl (1.6-2.3); Potassium 3.5 mmoL/L (3.5-5.1); Sodium 142 mmol/L (136-145)
[2023-12-18 07:33] VITALS: BP 167/91; PULSE 71; RESP 21; TEMP 36.8; O2SAT 96
[2023-12-18 08:00] VITALS: PULSE 60
--- NOTE | 2023-12-18 08:07 | EXP.DC.SUM ---
General Admission date:: 12/15/23 Discharge date: 12/18/23 HPI HPI HPI: Laxmi Cronin is a 63-year-old female with a medical history significant for CAD s/p 2 stents 12/13/2023, HFrEF 40%, CABG 2016, AICD, A-fib s/p maze and MILLY clip, bioprosthetic mitral valve replacement with chronic endocarditis on penicillin daily (used to follow with ID, lost to follow-up), CKD 3A, insulin-dependent diabetes, hypothyroidism who presents with nausea/vomiting since this morning. Patient was discharged yesterday after being hospitalized for AICD discharge, and A-fib RVR, and PCI with 2 stents placement. Patient was stable yesterday, denied chest pain, shortness of breath, tolerated p.o. intake appropriately. However, she states she began having nausea/vomiting this morning. Denies diarrhea. Workup in the ED significant for WBC 17.5, VBG 7.21 pCO2 33.1 with normal lactate, AGAP 23.8, creatinine 4.0 (baseline around 2.0), glucose 333, troponin 0.18. CXR suggests bilateral basilar pneumonia. Case discussed with ED provider and decision was made to admit patient for DKA. Hospital Course Hospital Course Hospital Course: Laxmi Cronin is a 63-year-old female with a medical history significant for CAD s/p 2 stents 12/13/2023, HFrEF 40%, CABG 2016, AICD, A-fib s/p maze and MILLY clip, bioprosthetic mitral valve replacement with chronic endocarditis on penicillin daily (used to follow with ID, lost to follow-up), CKD 3A, insulin-dependent diabetes, hypothyroidism who presents with nausea/vomiting since this morning. Patient was discharged yesterday after being hospitalized for AICD discharge, and A-fib RVR, and PCI with 2 stents placement. Patient continues to be stable. Tolerating p.o. intake. No further emesis. White count normalized. Kidney function at baseline. Evaluated by therapy. Patient overall showed improvement. Able to wean to room air. Stable to discharge home with home health. Problems addressed as follows: #High anion gap metabolic acidosis #STACY on CKD 3A ? Initial pH 7.21, AGAP 24, bicarb 12, BUN 77, potassium 5.8 in the setting of STACY on CKD 3A. Initial creatinine 4.0, baseline around 2.0. In the setting of nausea/vomiting in the setting of UTI, pneumonia and PCI on 12/13/2023. Administered IV fluids. Initially thought to be DKA, but acetone resulted in being negative. Was initially on DKA protocol with fluids, insulin drip but transitioned off during admission. Transition back to basal bolus regimen. STACY on CKD and hyperuremia seem to be most likely etiology of high anion gap metabolic acidosis. Workup negative for lactic acid, ethyl alcohol, salicylates, ketones. Unlikely to be renal tubular acidosis with normal urine pH and given elevated AGAP. Creatinine improved to 2.0, BUN 37. Back to baseline for patient. Potassium 3.5, magnesium 1.9. Discontinue bicarb drip. Initiate p.o. bicarbonate 650 mg 3 times a day. Symptoms overall resolved. Stable to discharge home. #Community-acquired pneumonia ? CXR suggestive of bibasilar pneumonia. WBC 17.5 on admission, though likely partially reactive in the setting nausea/vomiting. Normalized during admission. Completed 4 days of ceftriaxone during admission. Will complete course with cefdinir and azithromycin #UTI ? Urinalysis strongly suggestive of UTI in the setting of urostomy. Ceftriaxone for 4 days during admission. Urine returned positive for E. coli and Serratia, both sensitive to cephalosporins. Completed 5 days of cefdinir and azithromycin for UTI and pneumonia. #Rectal bleeding ? Patient states that she noted some rectal bleeding while wiping, no further episodes. Hemoglobin remained stable around 11 during admission. #Elevated troponins ? Initial troponin 0.18-0.15. However, this in the setting of recent PCI and STACY on CKD. No chest pain. likely demand ischemia in addition to recent PCI. #CAD s/p 2 stents #A-fib s/p maze and MILLY clip #Bioprosthetic mitral valve replacement with chronic endocarditis #CABG 2015 ? Aspirin 81 mg, Plavix 75 mg, atorvastatin 40 mg. ? Amiodarone 400 mg twice daily. Patient is supposed to be on penicillin daily for chronic endocarditis. ? Follow-up blood cultures in the setting of chronic endocarditis, NGTD #HFrEF ? Hold off on diuresis at this time, GDMT in the setting of STACY on CKD. ? No signs of volume overload. Total time spent on discharge 32 minutes in counseling, documentation, chart review, and direct care with patient. Exam Data for Last 24 hours Vital signs and Labs for Last 24 Hours: Temp Pulse Resp BP Pulse Ox O2 Del Method O2 Flow Rate 98.3 F 71 21 167/91 H 96 Room Air 97 12/18/23 07:33 12/18/23 07:33 12/18/23 07:33 12/18/23 07:33 12/18/23 07:33 12/18/23 07:33 12/17/23 02:53 Laboratory Results - last 24 hr 12/15/23 14:50: Hepatitis C Antibody Non reactive 12/16/23 17:20: POC Glucose 155 H 12/17/23 06:00: VBG pH 7.43 H, VBG pCO2 28.6 L, VBG pO2 38.3, VBG HCO3 18.7 L, VBG Total CO2 19.6 L, VBG O2 Saturation 81.6 H, VBG Base Excess -5.6 L, VBG Lactic Acid 1.4 12/17/23 11:14: POC Glucose 207 H 12/17/23 16:05: POC Glucose 136 H 12/17/23 19:53: POC Glucose 129 H 12/18/23 05:45: POC Glucose 82 12/18/23 05:53: WBC 9.2, RBC 3.49 L, Hct 30.7 L, MCV 88.1, MCH 28.7, MCHC 32.6, RDW 16.2, Plt Count 293, MPV 8.2, Neut % (Auto) 73.6, Lymph % (Auto) 18.4, [place] % (Auto) 4.6, Eos % (Auto) 2.8, Baso % (Auto) 0.7, Neut # (Auto) 6.8, Lymph # (Auto) 1.7, [place] # (Auto) 0.4, Eos # (Auto) 0.3, Baso # (Auto) 0.1, Sodium 142, Potassium 3.5, Chloride 110 H, Carbon Dioxide 27, Anion Gap 8.5, BUN 30 H, Creatinine 1.80 H, Estimated Creat Clear 36, Estimated GFR 29 L, Est GFR ( Amer) 35 L, Glucose 64 L D, Calcium 8.4, Magnesium 1.9 I & O for Last 24 hours: Intake & Output 12/15/23 12/16/23 12/17/23 12/18/23 22:59 23:59 23:59 23:59 Intake Total 180.961 / 118.588 4100.454 / 4108.454 1170 / 1410 240 / 240 Output Total 400 / 400 2345 / 2745 2600 / 2850 500 / 500 Balance -219.039 / 599.996 5147.454 / 1363.454 -1430 / -1440 -260 / -260 Weight 64.501 kg 64.501 kg 64.501 kg 69.899 kg Microbiology Reports for the Last 24 Hours: Microbiology 12/15/23 16:30 Blood Blood Culture - Preliminary NO GROWTH AFTER 48 HOURS 12/15/23 16:29 Blood Blood Culture - Preliminary NO GROWTH AFTER 48 HOURS 12/15/23 20:30 Urine,Suprapubic Urine Culture - Preliminary Constitutional Constitutional: no acute distress *Routine HEENT Exam Head: Present normocephalic Eye: Present EOMI and PERRL ENT: Present mucous membranes moist *Routine Neck Exam Neck: Present supple; Absent lymphadenopathy *Routine Respiratory Exam Respiratory: Present CTA bilaterally *Routine Cardiovascular Exam Cardiovascular: Present RRR *Routine Abdominal Exam Abdominal: Present soft and normoactive bowel sounds; Absent tenderness *Routine Extremities Exam Extremities: Absent cyanosis, clubbing or edema *Routine Skin Exam Skin: Present warm; Absent rash *Routine Neurological Exam Neurological: Present alert and oriented X3 Results Data Completed and Pending Labs on day of discharge: Labs from last 24 hours 12/18/23 12/18/23 12/17/23 05:53 05:45 19:53 WBC 9.2 RBC 3.49 L Hct 30.7 L MCV 88.1 MCH 28.7 MCHC 32.6 RDW 16.2 Plt Count 293 MPV 8.2 Neut % (Auto) 73.6 Lymph % (Auto) 18.4 [place] % (Auto) 4.6 Eos % (Auto) 2.8 Baso % (Auto) 0.7 Neut # (Auto) 6.8 Lymph # (Auto) 1.7 [place] # (Auto) 0.4 Eos # (Auto) 0.3 Baso # (Auto) 0.1 VBG pH VBG pCO2 VBG pO2 VBG HCO3 VBG Total CO2 VBG O2 Saturation VBG Base Excess VBG Lactic Acid Sodium 142 Potassium 3.5 Chloride 110 H Carbon Dioxide 27 Anion Gap 8.5 BUN 30 H Creatinine 1.80 H Estimated Creat Clear 36 Estimated GFR 29 L Est GFR ( Amer) 35 L Glucose 64 L D POC Glucose 82 129 H Calcium 8.4 Magnesium 1.9 Hepatitis C Antibody 12/17/23 12/17/23 12/17/23 16:05 11:14 06:00 WBC RBC Hct MCV MCH MCHC RDW Plt Count MPV Neut % (Auto) Lymph % (Auto) [place] % (Auto) Eos % (Auto) Baso % (Auto) Neut # (Auto) Lymph # (Auto) [place] # (Auto) Eos # (Auto) Baso # (Auto) VBG pH 7.43 H VBG pCO2 28.6 L VBG pO2 38.3 VBG HCO3 18.7 L VBG Total CO2 19.6 L VBG O2 Saturation 81.6 H VBG Base Excess -5.6 L VBG Lactic Acid 1.4 Sodium Potassium Chloride Carbon Dioxide Anion Gap BUN Creatinine Estimated Creat Clear Estimated GFR Est GFR ( Amer) Glucose POC Glucose 136 H 207 H Calcium Magnesium Hepatitis C Antibody 12/16/23 12/15/23 17:20 14:50 WBC RBC Hct MCV MCH MCHC RDW Plt Count MPV Neut % (Auto) Lymph % (Auto) [place] % (Auto) Eos % (Auto) Baso % (Auto) Neut # (Auto) Lymph # (Auto) [place] # (Auto) Eos # (Auto) Baso # (Auto) VBG pH VBG pCO2 VBG pO2 VBG HCO3 VBG Total CO2 VBG O2 Saturation VBG Base Excess VBG Lactic Acid Sodium Potassium Chloride Carbon Dioxide Anion Gap BUN Creatinine Estimated Creat Clear Estimated GFR Est GFR ( Amer) Glucose POC Glucose 155 H Calcium Magnesium Hepatitis C Antibody Non reactive Preliminary micro results at discharge 12/15/23 16:30 Blood Culture - Preliminary Blood NO GROWTH AFTER 48 HOURS 12/15/23 16:29 Blood Culture - Preliminary Blood NO GROWTH AFTER 48 HOURS 12/15/23 20:30 Urine Culture - Preliminary Urine,Suprapubic DS: Diagnosis Discharge Diagnosis (1) Paroxysmal atrial fibrillation: Status: Acute Code(s): I48.0 - Paroxysmal atrial fibrillation (2) STACY (acute kidney injury): Status: Resolved Code(s): N17.9 - Acute kidney failure, unspecified (3) CAD (coronary artery disease): Status: Acute Code(s): I25.10 - Atherosclerotic heart disease of [place] coronary artery without angina pectoris Qualifiers: Coronary Disease-Associated Artery/Lesion type: [place] artery (4) T2DM (type 2 diabetes mellitus): Status: Acute Code(s): E11.9 - Type 2 diabetes mellitus without complications Qualifiers: Chronic kidney disease stage 3 subtype: stage 3a (GFR 45-59) Diabetes mellitus 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 (5) Community acquired pneumonia: Status: Acute Code(s): J18.9 - Pneumonia, unspecified organism (6) UTI (urinary tract infection): Status: Inactive Code(s): N39.0 - Urinary tract infection, site not specified Qualifiers: Hematuria presence: with hematuria Urinary tract infection type: site unspecified Qualified Code(s): N39.0 - Urinary tract infection, site not specified; R31.9 - Hematuria, unspecified (7) High anion gap metabolic acidosis: Status: Resolved Code(s): E87.29 - Other acidosis (8) CKD (chronic kidney disease): Status: Acute Code(s): N18.9 - Chronic kidney disease, unspecified Meds Home Medications and Allergies Home Medications ?Medication ?Instructions ?Recorded ?Confirmed ?Type alprazolam 0.5 mg tablet 0.5 mg PO BIDP PRN Anxiety 12/12/23 12/23/23 History cholecalciferol (vitamin D3) 25 25 mcg PO DAILY 12/12/23 12/23/23 History mcg (1,000 unit) tablet citalopram 20 mg tablet 20 mg PO DAILY 12/12/23 12/23/23 History ergocalciferol (vitamin D2) 1,250 1,250 mcg PO WEEKLY 12/12/23 12/23/23 History mcg (50,000 unit) capsule insulin glargine 100 unit/mL (3 8 unit SQ HS 12/12/23 12/23/23 History mL) subcutaneous pen (Lantus Solostar U-100 Insulin) insulin human U-100 NPH-regulr 6 unit SQ BID 12/12/23 12/23/23 History 70-30 mix 100 unit/mL subcutaneous susp (Novolin 70/30 U-100 Insulin) trazodone 50 mg tablet 50 mg PO HS 12/12/23 12/23/23 History aspirin 81 mg tablet,delayed 81 mg PO DAILY 30 days #30 tabs 12/14/23 12/23/23 Rx release atorvastatin 40 mg tablet 40 mg PO HS 30 days #30 tabs 12/14/23 12/23/23 Rx clopidogrel 75 mg tablet 75 mg PO DAILY 30 days #30 tabs 12/14/23 12/23/23 Rx furosemide 40 mg tablet (Lasix) 40 mg PO DAILY #30 tabs 12/14/23 12/23/23 Rx azithromycin 250 mg tablet 500 mg (2 x 250 mg) PO DAILY 1 day 12/18/23 12/23/23 Rx #2 tabs cefdinir 300 mg capsule 300 mg PO BID 1 day #2 caps 12/18/23 12/23/23 Rx amiodarone 200 mg tablet 400 mg (2 x 200 mg) PO DAILY 30 12/23/23 12/23/23 Rx days #60 tabs sacubitril 24 mg-valsartan 26 mg 1 tab PO BID #60 tabs 12/23/23 12/23/23 Rx tablet (Entresto) New Prescriptions to Start Prescriptions: Vincent Goodrich cefdinir Vincent Hernandez Allergies Allergy/AdvReac Type Severity Reaction Status Date / Time No Known Allergies Allergy Verified 12/23/23 09:31 Discharge Plan Disposition Patient Disposition: Home Health Service Condition: Good Discharge Order Discharge Orders: Discharge Order (Routine); Ordered 12/18/23 Ordered By: Vincent Hernandez Follow up Plan Follow up with: Ariel Narayanan PA [Physician [employer]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] - 12/23/23 9:45 am Ivonne Jones APRN [Primary Care Provider] - 12/24/23 10:40 am Prescriptions/Medication Reconciliation: New azithromycin 250 mg Tablet 500 mg PO DAILY 1 Days Qty: 2 0RF Rx Instructions: take 12/18 cefdinir 300 mg capsule 300 mg PO BID 1 Days Qty: 2 0RF Rx Instructions: take on 12/19/23 Continued trazodone 50 mg tablet 50 mg PO HS alprazolam 0.5 mg tablet 0.5 mg PO BIDP PRN (Reason: Anxiety) citalopram 20 mg tablet 20 mg PO DAILY Novolin 70/30 U-100 Insulin 100 unit/mL (70-30) suspension 6 unit SQ BID ergocalciferol (vitamin D2) 1,250 mcg (50,000 unit) Capsule 1,250 mcg PO WEEKLY cholecalciferol (vitamin D3) 25 mcg (1,000 unit) Tablet 25 mcg PO DAILY insulin glargine [Lantus Solostar U-100 Insulin] 100 unit/mL (3 mL) insulin pen 8 unit SQ HS furosemide [Lasix] 40 mg tablet 40 mg PO DAILY Qty: 30 0RF atorvastatin 40 mg Tablet 40 mg PO HS 30 Days Qty: 30 0RF clopidogrel 75 mg tablet 75 mg PO DAILY 30 Days Qty: 30 0RF Patient Comments: TAKE ONE TABLET BY MOUTH ONCE A DAY aspirin 81 mg Tablet,Delayed Release (Dr/Ec) 81 mg PO DAILY 30 Days Qty: 30 0RF Discontinued dapagliflozin propanediol [Farxiga] 5 mg Tablet 5 mg PO DAILY No Action amiodarone 200 mg tablet 400 mg PO DAILY 30 Days Qty: 60 0RF Entresto 24-26 mg tablet 1 tab PO BID Qty: 60 2RF Problem Reconciliation Problems Reviewed?: Yes Patient Discharge Instructions ACTIVITY: Continue current activity DIET: continue same diet and diabetic diet Patient Instructions: DI for Dehydration -- Adult, DI for Diabetic Ketoacidosis, DI for Acute Kidney Injury Print Language: Telugu Providers Primary Care Provider: Ivonne Jones Admit Provider: Demetri Santoyo Attending Provider: Demetri Santoyo
--- NOTE | 2023-12-18 08:21 | P.PN_ITS ---
Subjective *Date: 12/18/23 *Time: 08:21 Medical Exam Vital signs and Labs for Last 24 Hours: Vital Signs Temp Pulse Pulse Resp BP Pulse Ox O2 Del Method 12/18/23 07:33 98.3 F 71 21 167/91 H 96 Room Air 12/18/23 06:41 Room Air 12/18/23 05:00 Room Air 12/18/23 04:00 97.5 F L 72 16 150/70 H 97 Room Air 12/18/23 04:00 60 12/18/23 03:00 Room Air 12/18/23 01:00 Room Air 12/18/23 00:00 70 12/18/23 00:00 97.5 F L 64 16 135/77 96 Room Air 12/17/23 23:00 Room Air 12/17/23 21:00 Room Air 12/17/23 20:00 70 12/17/23 20:00 Room Air 12/17/23 20:00 98.2 F 67 18 138/65 99 Room Air 12/17/23 18:29 Room Air 12/17/23 17:00 Room Air 12/17/23 16:00 60 12/17/23 16:00 98.1 F 70 18 148/69 H 97 Room Air 12/17/23 15:00 Room Air 12/17/23 13:51 78 18 12/17/23 13:00 Room Air 12/17/23 12:00 70 12/17/23 11:43 98.4 F 12/17/23 11:00 Room Air 12/17/23 10:00 88 18 167/74 H 99 Room Air 12/17/23 09:00 Room Air Intake and Output 12/17/23 12/18/23 12/18/23 23:59 07:59 15:59 Intake Total 210 / 1410 240 / 240 Output Total 1050 / 2850 500 / 500 Balance -840 / -1440 -260 / -260 Intake: Intake, Oral Amount 210 / 1410 240 / 240 Output: Output, Urine Amount 1050 / 2850 500 / 500 Other: Number of Unmeasured Voids 0 0 Weight 69.899 kg Patient Weight 12/18/23 23:59 Weight 69.899 kg Laboratory Results - last 24 hr 12/15/23 14:50: Hepatitis C Antibody Non reactive 12/15/23 20:30: Urine Color Yellow, Urine Appearance Turbid, Urine pH 7.5, Ur Specific [place] 1.020, Urine Protein 2+ A, Urine Glucose (UA) Negative, Urine Ketones Negative, Urine Blood Negative, Urine Nitrate Positive, Urine Bilirubin Negative, Urine Urobilinogen 0.2, Ur Leukocyte Esterase 2+ A, Urine RBC 3-5, Urine WBC 50-100, Ur Squamous Epith Cells 3-5, Amorphous Sediment 2+, Urine Bacteria 3+, Hyaline Casts 3-5 12/16/23 17:20: POC Glucose 155 H 12/17/23 06:00: VBG pH 7.43 H, VBG pCO2 28.6 L, VBG pO2 38.3, VBG HCO3 18.7 L, VBG Total CO2 19.6 L, VBG O2 Saturation 81.6 H, VBG Base Excess -5.6 L, VBG Lactic Acid 1.4 12/17/23 11:14: POC Glucose 207 H 12/17/23 16:05: POC Glucose 136 H 12/17/23 19:53: POC Glucose 129 H 12/18/23 05:45: POC Glucose 82 12/18/23 05:53: WBC 9.2, RBC 3.49 L, Hgb 10.0 L D, Hct 30.7 L, MCV 88.1, MCH 28.7, MCHC 32.6, RDW 16.2, Plt Count 293, MPV 8.2, Neut % (Auto) 73.6, Lymph % (Auto) 18.4, [place] % (Auto) 4.6, Eos % (Auto) 2.8, Baso % (Auto) 0.7, Neut # (Auto) 6.8, Lymph # (Auto) 1.7, [place] # (Auto) 0.4, Eos # (Auto) 0.3, Baso # (Auto) 0.1, Sodium 142, Potassium 3.5, Chloride 110 H, Carbon Dioxide 27, Anion Gap 8.5, BUN 30 H, Creatinine 1.80 H, Estimated Creat Clear 36, Estimated GFR 29 L, Est GFR ( Amer) 35 L, Glucose 64 L D, Calcium 8.4, Magnesium 1.9 I & O for Labs for Last 24 Hours: Intake & Output 12/15/23 12/16/23 12/17/23 12/18/23 22:59 23:59 23:59 23:59 Intake Total 180.961 / 215.893 5362.454 / 4108.454 1170 / 1410 240 / 240 Output Total 400 / 400 2345 / 2745 2600 / 2850 500 / 500 Balance -219.039 / 394.463 5104.454 / 1363.454 -1430 / -1440 -260 / -260 Weight 64.501 kg 64.501 kg 64.501 kg 69.899 kg Microbiology Reports for the Last 24 Hours: Microbiology 12/15/23 20:30 Urine,Suprapubic Urine Culture - Preliminary Gram Negative Rods Gram Negative Rods#2 12/15/23 16:30 Blood Blood Culture - Preliminary NO GROWTH AFTER 48 HOURS 12/15/23 16:29 Blood Blood Culture - Preliminary NO GROWTH AFTER 48 HOURS The patient's infection will respond to the chosen ABx?: No Is the patient receiving the right drug, dose, and route?: No Could a more targeted ABx be ordered?: No (GRAM NEGATIVE RODS X2 ISOLATES IN URINE)
[2023-12-18] MEDS: CITALOPRAM 20MG TABLET 20 MG PO (08:40)
[2023-12-18] MEDS: ASPIRIN EC 81MG TABLET 81 MG PO (08:40)
[2023-12-18] MEDS: AZITHROMYCIN 250MG TABLET 500 MG PO (08:40)
[2023-12-18] MEDS: AMIODARONE 200MG TABLET 400 MG PO (08:40)
[2023-12-18] MEDS: SENNOSIDES 8.6MG/DOCUSATE 50MG TABLET 1 TAB PO (08:41)
[2023-12-18] MEDS: CLOPIDOGREL 75MG TAB 75 MG PO (08:41)
[2023-12-18] MEDS: SODIUM BICARBONATE 650MG TABLET 650 MG PO (08:41)
[2023-12-18] MEDS: CEFTRIAXONE SODIUM 1 GM in 0.9 % SODIUM CHLORIDE 50 ML IV (08:41)
[2023-12-18 11:31] LABS: POC Glucose,Bedside 143 (70-110)
[2023-12-18 12:00] VITALS: PULSE 70
--- NOTE | 2023-12-20 13:08 | CARE MANAGER ---
Attempted to contact patient x2 related to hospital discharge. Left VM message. REGULO Ge
== END 2023-12-18 13:12 | disposition home health service (06) | DRG 637 ==
LOC: ER 13:58 → 2ND 16:41
PROVIDERS: Internal Medicine; Physician Assistant; Admitting Provider Student in an Organized Health Care Education/Training Program; Emergency Provider Emergency Medicine; PCP Nurse Practitioner Family; Visit Provider Student in an Organized Health Care Education/Training Program
DX: E11.10 Type 2 diabetes mellitus with ketoacidosis without coma (principal); J18.9 Pneumonia, unspecified organism; N17.9 Acute kidney failure, unspecified; N39.0 Urinary tract infection, site not specified; I50.20 Unspecified systolic (congestive) heart failure; E87.20 Acidosis, unspecified; E86.0 Dehydration; I48.0 Paroxysmal atrial fibrillation; E11.22 Type 2 diabetes mellitus with diabetic chronic kidney disease; I25.10 Atherosclerotic heart disease of native coronary artery without angina pectoris; Z79.4 Long term (current) use of insulin; Z79.899 Other long term (current) drug therapy; F17.210 Nicotine dependence, cigarettes, uncomplicated; Z95.5 Presence of coronary angioplasty implant and graft; N18.31 Chronic kidney disease, stage 3a; Z95.1 Presence of aortocoronary bypass graft; Z95.810 Presence of automatic (implantable) cardiac defibrillator; Z95.2 Presence of prosthetic heart valve
CPT/HCPCS: 36415; 71045; 80048; 80053; 80320; 80329; 81001; 82009; 82803; 82962; 83036; 83690; 83735; 84100; 84484; 85007; 85014; 85018; 85025; 86803; 87040; 87086; 87088; 87186; 87389; 93005; 97163; 97165; 99291; J0456; J0696; J0780; J1644; J2405; J2550; J7030; J7050; J7060; J7120

== ENCOUNTER 2024-01-01 09:13 | Outpatient (CLI) | payer MEDICARE, MEDICAID, SELFPAY ==
--- NOTE | 2024-01-01 09:16 | CA_ITS ---
APPROVED REPORT EXAM: Limited 2D Echocardiogram Operator Helper: Belen Art CRT Ht: 5 ft 1 in Wt: 143lbs BSA: 1.64 BP: 139/58 mmHg Indications: ef check echo 12/11/23 40% 2D Dimensions Left Atrium 4.34 cm LVEF (Maloney's) 33.60 % LVOT 1.75 cm (M/F) 1.5-2.5 LV Volume 73.50 mL EF AP4 51.70 % EF AP2 8.3 % EF BP 33.6 % GL Strain -6.1 % M-Mode Dimensions RVDd 2.46 cm (0.9-2.6) LVDd 4.49 cm (3.5-5.7) Ao Diam 3.52 cm (2.0-3.7) LVDs 2.75 cm (3.5-5.7) IVSd 0.86 cm (0.6-1.1) PWd 1.07 cm (0.6-1.1) EF (Teich) 69.20% FS 38.80% EDV (Teich) 92.00 mL ESV (Teich) 28.30 mL Other Information Study Quality: Fair Conclusion This is a limited TTE to evaluate for LV systolic function. Limited windows were obtained. The left ventricle is normal in size. There is increased LV wall thickness. There is mild global hypokinesis present. There is moderate hypokinesis of the anterior and anterolateral LV cid. LVEF is 45-50%. Compared to prior study from 11/2023, the LVEF is slightly improved, but continues to be mildly reduced. Electronically signed by : Deanna Fowler MD 01/02/2024 01:30:18
== END 2024-01-01 23:59 | disposition home or self-care (01) ==
LOC: RT 09:13
PROVIDERS: PCP Nurse Practitioner Family; Visit Provider Physician Assistant
DX: I25.10 Atherosclerotic heart disease of native coronary artery without angina pectoris (principal); I48.0 Paroxysmal atrial fibrillation
CPT/HCPCS: 93308

== ENCOUNTER 2024-01-23 11:06 | Outpatient (CLI) | payer MEDICARE, MEDICAID, SELFPAY ==
[2024-01-23 11:35] LABS: Basophils # 0.1 K/mm3 (0-0.2); Eosinophils # 0.3 K/mm3 (0.0-0.4); Eosinophils % 3.2 % (0.1-12.0); Hematocrit 37.9 % (37.0-47.0); Hemoglobin 11.8 g/dL (12.2-16.2); Lymphocytes # 1.8 K/mm3 (0.7-4.5); Lymphocytes % 17.4 % (10-50); Mean Corpuscular HGB Conc 31.1 g/dL (31.8-35.4); Mean Corpuscular Hemoglobin 29.4 pg (27.0-31.2); Mean Corpuscular Volume 94.3 fl (81-99); Mean Platelet Volume 8.4 fl (7.4-10.4); Monocytes # 0.4 K/mm3 (0.1-1.0); Monocytes % 4.3 % (1.7-9.3); Neutrophils # 7.6 K/mm3 (1.8-7.8); Platelet Count 326 K/mm3 (142-424); Red Blood Count 4.02 M/mm3 (4.20-5.40); Red Cell Distribution Width 16.9 % (11.5-17.5); White Blood Count 10.3 K/mm3 (4.8-10.8)
[2024-01-23 12:31] LABS: Alanine Aminotransferase 10 U/L (12-78); Alkaline Phosphatase 107 U/L (38-126); Anion Gap 17.9 mEq/L (5-15); Aspartate Amino Transferase 20 U/L (14-36); Bilirubin,Direct 0.3 mg/dl (0.0-0.4); Bilirubin,Total 0.3 mg/dl (0.2-1.3); Blood Urea Nitrogen 73 mg/dl (7-17); Calcium 9.5 mg/dl (8.4-10.2); Chloride 115 mmol/L (98-107); Chol/HDL Ratio 6.5 (1-3.5); Cholesterol 196 mg/dl (140-200); Estimated Glomerular Filt Rate 14 ml/min (>60); GFR (African American) 17 ML/MIN (>60); Glucose 132 mg/dl (74-100); HDL Cholesterol 30 mg/dl (40-60); Potassium 4.9 mmoL/L (3.5-5.1); Sodium 137 mmol/L (136-145); Total Protein,Serum 6.8 g/dl (6.3-8.2); Triglycerides 210 mg/dl (30-150); VLDL Cholesterol 42 mg/dL (0-40)
[2024-01-23 12:41] LABS: Direct LDL Cholesterol 128.52 mg/dL (100-129)
[2024-01-23 13:01] LABS: Thyroid Stimulating Hormone 6.03 uIU/mL (0.465-4.68)
[2024-01-23 13:09] LABS: Free T4 (Free Thyroxine) 1.18 ng/dl (0.78-2.19)
[2024-01-23 13:32] LABS: Carbon Dioxide 9 mmol/L (22.0-30.0)
== END 2024-01-23 23:59 | disposition home or self-care (01) ==
PROVIDERS: PCP Nurse Practitioner Family; Visit Provider Internal Medicine
DX: I25.10 Atherosclerotic heart disease of native coronary artery without angina pectoris (principal); I73.9 Peripheral vascular disease, unspecified; E03.9 Hypothyroidism, unspecified; I65.23 Occlusion and stenosis of bilateral carotid arteries; I48.0 Paroxysmal atrial fibrillation; E13.9 Other specified diabetes mellitus without complications; Z98.890 Other specified postprocedural states; Z95.2 Presence of prosthetic heart valve; Z72.0 Tobacco use
CPT/HCPCS: 36415; 80048; 80061; 80076; 84439; 84443; 85025

== ENCOUNTER 2024-02-19 16:12 | Observation (INO) | payer MEDICARE, MEDICAID, SELFPAY ==
[2024-02-19] VITALS (12 sets, daily range): BP systolic 105–152; BP diastolic 62–86; PULSE 70–112; RESP 16–19; TEMP 36.6–36.8; O2SAT 98–100; BMI 25.9; BMI 25.8
--- NOTE | 2024-02-19 16:24 | ECG_ITS ---
APPROVED REPORT Exam: Resting ECG HR:102 bpm ECG Measurements Heart Rate 102 AXES QRSd 99 QRS 46 QT 320 T 235 QTc 378 Conclusion ATRIAL FIBRILLATION WITH RAPID VENTRICULAR RESPONSE ST DEVIATION AND MODERATE T-WAVE ABNORMALITY, CONSIDER LATERAL ISCHEMIA [-0.1+ mV T-WAVE IN I/aVL/V5/V6] ABNORMAL ECG UNCONFIRMED REPORT Electronically signed by : TIANNA YATES, 02/21/2024 05:43:13
--- NOTE | 2024-02-19 16:39 | HMH.EDGENADL ---
Discharge Plan Disposition Patient Disposition: Admitted Condition: Good Clinical Impressions Clinical Impression: Fall, Generalized weakness, Acute kidney injury superimposed on stage 3a chronic kidney disease, UTI (urinary tract infection) Discharge ED Provider: Patrick Davis Adult HPI <TANIA Clark - Last Filed: 02/19/24 21:41> General Chief complaint: Weakness Stated complaint: loss of balance dizziness weakness Time Seen by Provider: 02/19/24 16:38 Mode of Arrival: Ambulatory Source of Information: Patient and Relative Limitations: No Limitations Description of Symptoms (Recalled from ER Triage Doc. by RN): Pt arrives with c/o generalized weakness and dizziness that started suddenly at 8pm last night. Pt has a PMH of DM2, liver/kidney disease, htn, and a defibrilator. BGL on arrival 193 History of Present Illness HPI narrative: 63-year-old female presents to the emergency department accompanied by her family member for some dizziness/loss of balance and generalized weakness and lightheadedness that started approximately 8 PM last night. Patient acknowledged some dizziness and lightheadedness this morning, actually had a fall this morning, she denies any LOC, but is somewhat of a poor historian, currently she denies any dizziness, no presyncope or syncopal type episodes. He denies any fever chills chest pain shortness of breath, lightheadedness headache, nausea vomiting constipation diarrhea, no urinary type symptomatology, does have her ostomy bag in place, has had it placed since , with good output, no evidence of infection or pain around the patient's urostomy site, was placed for bladder cancer status postresection. Other past medical history consistent with coronary artery disease, CKD, paroxysmal atrial fibrillation, type 2 diabetes, CHF, she has ICD implanted device, hyperlipidemia, carotid artery stenosis, peripheral vascular disease, anxiety, history of tricuspid valve repair, hypothyroidism, she is a current everyday smoker, denies any alcohol use, does admit to everyday marijuana use. Initial triage vitals are unremarkable. Onset (ago): hour(s) Related Data Home Medications ?Medication ?Instructions ?Recorded ?Confirmed alprazolam 0.5 mg tablet 0.5 mg PO BIDP PRN Anxiety 12/12/23 02/19/24 cholecalciferol (vitamin D3) 25 25 mcg PO DAILY 12/12/23 02/19/24 mcg (1,000 unit) tablet citalopram 20 mg tablet 20 mg PO DAILY 12/12/23 02/19/24 ergocalciferol (vitamin D2) 1,250 1,250 mcg PO WEEKLY 12/12/23 02/19/24 mcg (50,000 unit) capsule insulin glargine 100 unit/mL (3 8 unit SQ HS 12/12/23 02/19/24 mL) subcutaneous pen (Lantus Solostar U-100 Insulin) insulin human U-100 NPH-regulr 6 unit SQ BID 12/12/23 02/19/24 70-30 mix 100 unit/mL subcutaneous susp (Novolin 70/30 U-100 Insulin) trazodone 50 mg tablet 50 mg PO HS 12/12/23 02/19/24 cariprazine 1.5 mg capsule 1.5 mg PO DAILY 01/23/24 02/19/24 (Vraylar) ropinirole 1 mg tablet 1 mg PO DAILY 01/23/24 02/19/24 Previous Rx's ?Medication ?Instructions ?Recorded aspirin 81 mg tablet,delayed 81 mg PO DAILY 30 days #30 tabs 12/14/23 release atorvastatin 40 mg tablet 40 mg PO HS 30 days #30 tabs 12/14/23 clopidogrel 75 mg tablet 75 mg PO DAILY 30 days #30 tabs 12/14/23 furosemide 40 mg tablet (Lasix) 40 mg PO DAILY #30 tabs 12/14/23 sacubitril 24 mg-valsartan 26 mg 1 tab PO BID #60 tabs 12/23/23 tablet (Entresto) amiodarone 200 mg tablet 200 mg PO DAILY #30 tabs 01/23/24 dapagliflozin propanediol 10 mg 10 mg PO DAILY #30 tabs 01/23/24 tablet (Farxiga) Allergies Allergy/AdvReac Type Severity Reaction Status Date / Time No Known Allergies Allergy Verified 01/23/24 10:27 [facility] <TANIA Clark - Last Filed: 02/19/24 21:41> [facility] Disclaimer: The information contained in this section may have been updated after the patient was seen, as this information can be updated by other users. Medical History (Updated 02/19/24 @ 21:41 by TANIA Clark) Coronary artery disease Pacemaker at end of battery life Right kidney mass Pancreatic mass Vomiting Dental abscess Pain, dental Hematuria Complication of urostomy Nausea vomiting and diarrhea Hypotension Generalized weakness Hypovolemia E. coli UTI (urinary tract infection) Infection due to extended-spectrum [id number] Klebsiella pneumoniae Yeast infection of the vagina Complicated UTI (urinary tract infection) STACY (acute kidney injury) Septic shock Severe sepsis with acute organ dysfunction Cellulitis Candidiasis Abdominal pannus Nausea & vomiting Presence of urostomy Presence of urostomy Vitamin D deficiency Biventricular cardiac pacemaker in situ Bacterial endocarditis Cardiac arrhythmia Bacteria present Obesity (BMI 30.0-34.9) Gastroenteritis due to norovirus Decreased blood volume Sepsis due to Streptococcus agalactiae Bacteremia Ileostomy in place Pacemaker Bladder cancer Diarrhea Fever UTI (urinary tract infection) Dehydration Diabetes mellitus Renal insufficiency Abscess of skin or subcutaneous tissue Renal insufficiency Valvular heart disease Palpitations Myocardial infarction HTN (hypertension), benign T2DM (type 2 diabetes mellitus) Depression CHF (congestive heart failure) Cancer Arrhythmia Anxiety Encounter for pre-operative cardiovascular clearance PAD (peripheral artery disease) Abnormal ankle brachial index (GOMEZ) PVD (peripheral vascular disease) HHD (hypertensive heart disease) Smoker HLD (hyperlipidemia) Carotid bruit Carotid artery stenosis CAD (coronary artery disease) Surgical History Hx of tonsillectomy History of mitral valve replacement S/P left atrial appendage ligation AICD (automatic cardioverter/defibrillator) present H/O tricuspid valve replacement History of coronary artery bypass graft Family History Other Cancer Diabetes Heart attack Social History Smoking Status: Never smoker second hand exposure: Yes alcohol intake: never substance use type: marijuana current occupational status: unemployed Travel in the last 8 weeks: None household members: family housing: house number of children: 2 current occupational exposures/hazards: No caffeine: Yes Have you lived/traveled outside [place] in past 30 days?: No Contact w/someone who lives/traveled outside US past 30 days?: No Exposure to someone with infectious disease in past 14 days?: No Do you have a fever (greater than 100.4 F or 38 C)?: No Have you tested positive for COVID-19: No Exposed to someone with COVID-19 in past 14 days?: No Do you have a sore throat?: No Do you have a cough?: No Do you have any weakness?: Yes Do you have any diarrhea?: No Are you experiencing any unusual bleeding?: No Do you have any muscle aches/pain?: No Do you have any abdominal pain?: No Are you experiencing loss of taste or smell?: No Other Medical History Have you received the Flu Vaccine for this season: No Have you received the Pneumonia Vaccine: No <TANIA Clark - Last Filed: 02/19/24 21:41> ROS Obtained: Yes All systems reviewed & no additional complaints except as documented Physical Exam <TANIA Clark - Last Filed: 02/19/24 21:41> General General appearance: alert and in no apparent distress Head Head exam: atraumatic and normocephalic Eye Eye exam: Present PERRL and EOMI ENT ENT exam: Present mucous membranes moist Neck Neck exam: Present normal inspection Chest Chest inspection: Present normal inspection and symmetric chest wall rise Respiratory Respiratory exam: Present normal lung sounds bilaterally; Absent respiratory distress, wheezes, stridor or accessory muscle use Cardiovascular Cardiovascular exam: Present regular rate and normal rhythm Abdominal Exam Abdominal exam: Present soft; Absent tenderness, guarding, rebound or rigidity Comment: There is urostomy bag in place with good output, stoma looks beefy red, no erythema no evidence of wound dehiscence, Extremities Exam Extremities exam: Present normal inspection Neurological Exam Neurological exam: Present alert and other (Patient is alert oriented x 2, unsure about date and time, per family member at the bedside, this appears to be her baseline, there is no dysmetria, no dysarthria, there is 5 out of 5 strength in bilateral lower and upper extremities, no limb drift, in the bilateral lower and upper extremities, no v) Psychiatric Psychiatric exam: Present normal affect and other Skin Skin exam: Present warm and dry Medical Decision Making <TANIA Clark - Last Filed: 02/19/24 21:41> Medical Records Medical records reviewed: Yes I reviewed the patient's medical records. Screening: Per USPSTF and CDC recommendations, given the prevalence of disease in our region, it is our hospital?s policy to screen for HIV and viral Hepatitis for all patients aged 18 and over and those with ongoing risk factors. [place] Inquiry Pt receiving controlled substance: No [place] was queried for this patient: No Vital Signs: 02/19/24 16:25 02/19/24 17:00 02/19/24 17:30 Temperature 98.3 F Temperature Source Oral Pulse Rate Pulse Rate [Right Radial] 70 Respiratory Rate 18 18 17 Blood Pressure 116/62 113/78 Blood Pressure [Right Arm] 152/85 H Blood Pressure Mean [Right Arm] 107 Blood Pressure Source Blood Pressure Source [Right Arm] Automatic Cuff Blood Pressure Position 02 Sat by Pulse Oximetry 100 100 Oxygen Delivery Method Room Air Room Air 02/19/24 18:01 02/19/24 19:01 02/19/24 19:30 Temperature Temperature Source Pulse Rate 112 H 87 83 Pulse Rate [Right Radial] Respiratory Rate Blood Pressure 105/76 L 109/76 L 108/71 L Blood Pressure [Right Arm] Blood Pressure Mean [Right Arm] Blood Pressure Source Blood Pressure Source [Right Arm] Blood Pressure Position 02 Sat by Pulse Oximetry 98 98 99 Oxygen Delivery Method 02/19/24 20:38 02/19/24 21:01 02/19/24 21:30 Temperature Temperature Source Pulse Rate 70 108 H 98 H Pulse Rate [Right Radial] Respiratory Rate Blood Pressure 122/76 129/83 129/86 Blood Pressure [Right Arm] Blood Pressure Mean [Right Arm] Blood Pressure Source Blood Pressure Source [Right Arm] Blood Pressure Position 02 Sat by Pulse Oximetry 98 99 98 Oxygen Delivery Method 02/19/24 22:00 02/19/24 22:14 02/19/24 22:24 Temperature 97.9 F Temperature Source Oral Pulse Rate 91 H 91 H Pulse Rate [Right Radial] Respiratory Rate 16 Blood Pressure 118/77 118/77 Blood Pressure [Right Arm] Blood Pressure Mean [Right Arm] Blood Pressure Source Automatic Cuff Blood Pressure Source [Right Arm] Blood Pressure Position Supine 02 Sat by Pulse Oximetry 99 Oxygen Delivery Method Room Air Room Air Lab Data Lab results reviewed: Yes I reviewed the patient's lab results. Lab Results 02/19/24 16:57: WBC 16.4 H, RBC 4.38, Hgb 12.3, Hct 38.4, MCV 87.7, MCH 28.1, MCHC 32.0, RDW 17.2, Plt Count 502 H, MPV 10.6 H, Neut % (Auto) 84.5 H, Lymph % (Auto) 8.3 L, [place] % (Auto) 3.9, Eos % (Auto) 1.3, Baso % (Auto) 0.4, Neut # (Auto) 13.9 H, Lymph # (Auto) 1.4, [place] # (Auto) 0.6, Eos # (Auto) 0.2, Baso # (Auto) 0.1, Total Counted 100, Neutrophils % (Manual) 77 H, Lymphocytes % (Manual) 12, Monocytes % (Manual) 8, Eosinophils % (Manual) 1, Metamyelocytes % 1.0, Myelocytes % 1, Platelet Estimate Moderate increase, Polychromasia 2+, Anisocytosis 2+, Microcytosis 1+, Macrocytosis 1+, PT 10.3, INR 0.91, Sodium 139, Potassium 4.5, Chloride 108 H, Carbon Dioxide 14 L, Anion Gap 21.5 H, BUN 75 H, Creatinine 3.20 H, Estimated Creat Clear 18, Estimated GFR 15 L*, Est GFR ( Amer) 18 L*, Glucose 211 H, Calcium 9.3, Magnesium 2.1, Total Bilirubin 0.6, AST 28, ALT 13, Alkaline Phosphatase 83, Troponin I < 0.01, NT-Pro-B Natriuret Pep 2890 H, Total Protein 7.6, Albumin 4.1, Globulin 3.5 H, Albumin/Globulin Ratio 1.2, Lipase 64 02/19/24 17:03: Urine Color Yellow, Urine Appearance Slightly cloudy, Urine pH 7.0, Ur Specific [place] 1.020, Urine Protein 2+ A, Urine Glucose (UA) Negative, Urine Ketones Negative, Urine Blood 1+ A, Urine Nitrate Positive A, Urine Bilirubin Negative, Urine Urobilinogen 0.2, Ur Leukocyte Esterase 2+ A, Urine RBC Tntc, Urine WBC Tntc, Ur Squamous Epith Cells 3-5, Urine Bacteria 4+, Urine Opiates Screen Negative, Urine Methadone Screen Negative, Ur Barbituates Screen Negative, Ur Phencyclidine Scrn Negative, Ur Amphetamines Screen Negative, U Benzodiazepines Scrn Positive H, Urine Cocaine Screen Negative, U Marijuana (THC) Screen Positive H 02/19/24 20:34: Troponin I < 0.01 02/19/24 16:57 02/19/24 16:57 Orders (Tests/Meds): ED MEDICATIONS Generic Name Dose Route Start Last Admin Trade Name Freq PRN Reason Stop Dose Admin Acetaminophen 650 mg 02/19/24 22:27 Acetaminophen 325mg Tab PO 03/20/24 22:26 Q4HP PRN Fever or Mild Pain (1-3) Enoxaparin Sodium 40 mg 02/20/24 09:00 Enoxaparin 40mg/0.4ml Syringe SUBCUT 03/21/24 08:59 DAILY BIJAN Insulin Human Lispro 0 unit 02/20/24 06:00 Humalog 100 Units/Ml 10ml Vial (Ssi) SUBCUT 03/21/24 05:59 ACHS [facility] Protocol Ondansetron HCl 4 mg 02/19/24 22:27 Ondansetron 4mg/2ml Vial IV 03/20/24 22:26 Q8HP PRN Nausea Discontinued Medications Generic Name Dose Route Start Last Admin Trade Name Freq PRN Reason Stop Dose Admin Ceftriaxone Sodium 1 gm/ 50 mls @ 100 mls/hr 02/19/24 17:37 02/19/24 17:49 Sodium Chloride IV 02/19/24 18:06 100 mls/hr ONCE ONE Administration Sodium Chloride 1,000 mls @ 999 mls/hr 02/19/24 19:33 02/19/24 20:41 Sod Chlor 0.9% 1000ml Bag IV 02/19/24 20:33 999 mls/hr .Q1H1M ONE Administration ORDERS Category Date Time Status CT head/brain wo con Stat Cat Scan 02/19/24 16:51 Completed XR chest portable Stat Exams 02/19/24 16:51 Completed Complete Blood Count Auto Diff AMLAB Lab 02/20/24 06:00 Ordered Complete Blood Count Auto Diff AMLAB Lab 02/21/24 06:00 Ordered Complete Blood Count Auto Diff AMLAB Lab 02/22/24 06:00 Ordered Complete Blood Count Auto Diff AMLAB Lab 02/23/24 06:00 Ordered Complete Blood Count Auto Diff AMLAB Lab 02/24/24 06:00 Ordered Complete Blood Count Auto Diff Stat Lab 02/19/24 16:57 Completed Comprehensive Metabolic Panel AMLAB Lab 02/20/24 06:00 Ordered Comprehensive Metabolic Panel AMLAB Lab 02/21/24 06:00 Ordered Comprehensive Metabolic Panel AMLAB Lab 02/22/24 06:00 Ordered Comprehensive Metabolic Panel AMLAB Lab 02/23/24 06:00 Ordered Comprehensive Metabolic Panel AMLAB Lab 02/24/24 06:00 Ordered Comprehensive Metabolic Panel Stat Lab 02/19/24 16:57 Completed Drug Screen,Urine Stat Lab 02/19/24 17:03 Completed Lipase Stat Lab 02/19/24 16:57 Completed Magnesium AMLAB Lab 02/20/24 06:00 Ordered Magnesium AMLAB Lab 02/21/24 06:00 Ordered Magnesium AMLAB Lab 02/22/24 06:00 Ordered Magnesium AMLAB Lab 02/23/24 06:00 Ordered Magnesium AMLAB Lab 02/24/24 06:00 Ordered Magnesium Stat Lab 02/19/24 16:57 Completed NT Pro Brain Natriuretic Pep. Stat Lab 02/19/24 16:57 Completed PT INR [Prothrombin Time INR] Stat Lab 02/19/24 16:57 Completed Troponin I Q3H Lab 02/19/24 20:34 Completed Troponin I Q3H Lab 02/19/24 23:07 Received Troponin I Stat Lab 02/19/24 16:57 Completed Urinalysis and Microscopic Stat Lab 02/19/24 17:03 Completed Urine Culture Stat Micro 02/19/24 17:03 Received Medical Decision Narrative: 63-year-old female presents emergency department for dizziness lightheadedness, generalized weakness, differential diagnose include but not limited to cardiac arrhythmia, electrolyte disturbance, acute dehydration, cerebral hypoperfusion, intracranial mass, peripheral vertigo, central vertigo. Discussed patient case with the physician Will obtain basic laboratory studies, UDS, urinalysis, lipase, magnesium level, PT/INR, proBNP, troponin, EKG, chest x-ray, CT head without contrast, CTA head and neck with without contrast for further evaluation of characterization Urinalysis notable for 2+ proteinuria, 1+ hematuria, nitrite positive, 2+ leukocyte esterase. CBC is notable for leukocytosis 16.4, thrombocytosis at 502, otherwise unremarkable CBC. The patient's acute on chronic kidney injury with a creatinine of 3.4 which is somewhat and her baseline GFR is 15, will hold off on angiographic study at this time we will proceed with Noncon CT of the head, and perform walk test for the patient to assess for any global ataxia versus generalized weakness. CMP is notable for anion gap of 21.5, BUN is elevated at 75, creatinine is elevated at 3.2, GFR is 15 Coags within normal limit, UDS positive for benzodiazepines, positive for marijuana Will start 1 g IV ceftriaxone for UTI. Troponin within normal limits, proBNP is mildly elevated 2890 Reviewed the patient's chest x-ray along the corresponding radiologic report no acute findings. I reviewed the patient's CT head without contrast along the corresponding radiologic report, no acute intracranial abnormality, left mastoid air cell disease. Will give 1 L IV NS, for acute on chronic kidney injury. Discussed this patient's case with the hospitalist approximately 8:43 PM, he states he will come see the patient and potentially admit the patient for observation admission for acute on chronic kidney injury/UTI. Dr. Santoyo the hospital on exam of the patient except the patient for admission for acute on chronic kidney injury with generalized weakness and fall in the setting of a UTI. Patient will be admitted to the hospitalist service for further care/workup. <Patrick Davis MD - Last Filed: 02/19/24 23:23> Vital Signs: 02/19/24 16:25 02/19/24 17:00 02/19/24 17:30 Temperature 98.3 F Temperature Source Oral Pulse Rate Pulse Rate [Right Radial] 70 Respiratory Rate 18 18 17 Blood Pressure 116/62 113/78 Blood Pressure [Right Arm] 152/85 H Blood Pressure Mean [Right Arm] 107 Blood Pressure Source Blood Pressure Source [Right Arm] Automatic Cuff Blood Pressure Position 02 Sat by Pulse Oximetry 100 100 Oxygen Delivery Method Room Air Room Air 02/19/24 18:01 02/19/24 19:01 02/19/24 19:30 Temperature Temperature Source Pulse Rate 112 H 87 83 Pulse Rate [Right Radial] Respiratory Rate Blood Pressure 105/76 L 109/76 L 108/71 L Blood Pressure [Right Arm] Blood Pressure Mean [Right Arm] Blood Pressure Source Blood Pressure Source [Right Arm] Blood Pressure Position 02 Sat by Pulse Oximetry 98 98 99 Oxygen Delivery Method 02/19/24 20:38 02/19/24 21:01 02/19/24 21:30 Temperature Temperature Source Pulse Rate 70 108 H 98 H Pulse Rate [Right Radial] Respiratory Rate Blood Pressure 122/76 129/83 129/86 Blood Pressure [Right Arm] Blood Pressure Mean [Right Arm] Blood Pressure Source Blood Pressure Source [Right Arm] Blood Pressure Position 02 Sat by Pulse Oximetry 98 99 98 Oxygen Delivery Method 02/19/24 22:00 02/19/24 22:14 02/19/24 22:24 Temperature 97.9 F Temperature Source Oral Pulse Rate 91 H 91 H Pulse Rate [Right Radial] Respiratory Rate 16 Blood Pressure 118/77 118/77 Blood Pressure [Right Arm] Blood Pressure Mean [Right Arm] Blood Pressure Source Automatic Cuff Blood Pressure Source [Right Arm] Blood Pressure Position Supine 02 Sat by Pulse Oximetry 99 Oxygen Delivery Method Room Air Room Air Lab Data Lab Results 02/19/24 16:57: WBC 16.4 H, RBC 4.38, Hgb 12.3, Hct 38.4, MCV 87.7, MCH 28.1, MCHC 32.0, RDW 17.2, Plt Count 502 H, MPV 10.6 H, Neut % (Auto) 84.5 H, Lymph % (Auto) 8.3 L, [place] % (Auto) 3.9, Eos % (Auto) 1.3, Baso % (Auto) 0.4, Neut # (Auto) 13.9 H, Lymph # (Auto) 1.4, [place] # (Auto) 0.6, Eos # (Auto) 0.2, Baso # (Auto) 0.1, Total Counted 100, Neutrophils % (Manual) 77 H, Lymphocytes % (Manual) 12, Monocytes % (Manual) 8, Eosinophils % (Manual) 1, Metamyelocytes % 1.0, Myelocytes % 1, Platelet Estimate Moderate increase, Polychromasia 2+, Anisocytosis 2+, Microcytosis 1+, Macrocytosis 1+, PT 10.3, INR 0.91, Sodium 139, Potassium 4.5, Chloride 108 H, Carbon Dioxide 14 L, Anion Gap 21.5 H, BUN 75 H, Creatinine 3.20 H, Estimated Creat Clear 18, Estimated GFR 15 L*, Est GFR ( Amer) 18 L*, Glucose 211 H, Calcium 9.3, Magnesium 2.1, Total Bilirubin 0.6, AST 28, ALT 13, Alkaline Phosphatase 83, Troponin I < 0.01, NT-Pro-B Natriuret Pep 2890 H, Total Protein 7.6, Albumin 4.1, Globulin 3.5 H, Albumin/Globulin Ratio 1.2, Lipase 64 02/19/24 17:03: Urine Color Yellow, Urine Appearance Slightly cloudy, Urine pH 7.0, Ur Specific [place] 1.020, Urine Protein 2+ A, Urine Glucose (UA) Negative, Urine Ketones Negative, Urine Blood 1+ A, Urine Nitrate Positive A, Urine Bilirubin Negative, Urine Urobilinogen 0.2, Ur Leukocyte Esterase 2+ A, Urine RBC Tntc, Urine WBC Tntc, Ur Squamous Epith Cells 3-5, Urine Bacteria 4+, Urine Opiates Screen Negative, Urine Methadone Screen Negative, Ur Barbituates Screen Negative, Ur Phencyclidine Scrn Negative, Ur Amphetamines Screen Negative, U Benzodiazepines Scrn Positive H, Urine Cocaine Screen Negative, U Marijuana (THC) Screen Positive H 02/19/24 20:34: Troponin I < 0.01 Orders (Tests/Meds): ED MEDICATIONS Generic Name Dose Route Start Last Admin Trade Name Freq PRN Reason Stop Dose Admin Acetaminophen 650 mg 02/19/24 22:27 Acetaminophen 325mg Tab PO 03/20/24 22:26 Q4HP PRN Fever or Mild Pain (1-3) Enoxaparin Sodium 40 mg 02/20/24 09:00 Enoxaparin 40mg/0.4ml Syringe SUBCUT 03/21/24 08:59 DAILY [facility] Insulin Human Lispro 0 unit 02/20/24 06:00 Humalog 100 Units/Ml 10ml Vial (Ssi) SUBCUT 03/21/24 05:59 ACHS [facility] Protocol Ondansetron HCl 4 mg 02/19/24 22:27 Ondansetron 4mg/2ml Vial IV 03/20/24 22:26 Q8HP PRN Nausea Discontinued Medications Generic Name Dose Route Start Last Admin Trade Name Freq PRN Reason Stop Dose Admin Ceftriaxone Sodium 1 gm/ 50 mls @ 100 mls/hr 02/19/24 17:37 02/19/24 17:49 Sodium Chloride IV 02/19/24 18:06 100 mls/hr ONCE ONE Administration Sodium Chloride 1,000 mls @ 999 mls/hr 02/19/24 19:33 02/19/24 20:41 Sod Chlor 0.9% 1000ml Bag IV 02/19/24 20:33 999 mls/hr .Q1H1M ONE Administration ORDERS Category Date Time Status CT head/brain wo con Stat Cat Scan 02/19/24 16:51 Completed XR chest portable Stat Exams 02/19/24 16:51 Completed Complete Blood Count Auto Diff AMLAB Lab 02/20/24 06:00 Ordered Complete Blood Count Auto Diff AMLAB Lab 02/21/24 06:00 Ordered Complete Blood Count Auto Diff AMLAB Lab 02/22/24 06:00 Ordered Complete Blood Count Auto Diff AMLAB Lab 02/23/24 06:00 Ordered Complete Blood Count Auto Diff AMLAB Lab 02/24/24 06:00 Ordered Complete Blood Count Auto Diff Stat Lab 02/19/24 16:57 Completed Comprehensive Metabolic Panel AMLAB Lab 02/20/24 06:00 Ordered Comprehensive Metabolic Panel AMLAB Lab 02/21/24 06:00 Ordered Comprehensive Metabolic Panel AMLAB Lab 02/22/24 06:00 Ordered Comprehensive Metabolic Panel AMLAB Lab 02/23/24 06:00 Ordered Comprehensive Metabolic Panel AMLAB Lab 02/24/24 06:00 Ordered Comprehensive Metabolic Panel Stat Lab 02/19/24 16:57 Completed Drug Screen,Urine Stat Lab 02/19/24 17:03 Completed Lipase Stat Lab 02/19/24 16:57 Completed Magnesium AMLAB Lab 02/20/24 06:00 Ordered Magnesium AMLAB Lab 02/21/24 06:00 Ordered Magnesium AMLAB Lab 02/22/24 06:00 Ordered Magnesium AMLAB Lab 02/23/24 06:00 Ordered Magnesium AMLAB Lab 02/24/24 06:00 Ordered Magnesium Stat Lab 02/19/24 16:57 Completed NT Pro Brain Natriuretic Pep. Stat Lab 02/19/24 16:57 Completed PT INR [Prothrombin Time INR] Stat Lab 02/19/24 16:57 Completed Troponin I Q3H Lab 02/19/24 20:34 Completed Troponin I Q3H Lab 02/19/24 23:07 Received Troponin I Stat Lab 02/19/24 16:57 Completed Urinalysis and Microscopic Stat Lab 02/19/24 17:03 Completed Urine Culture Stat Micro 02/19/24 17:03 Received Medical Decision Narrative: 63-year-old female presents emergency department for dizziness lightheadedness, generalized weakness, differential diagnose include but not limited to cardiac arrhythmia, electrolyte disturbance, acute dehydration, cerebral hypoperfusion, intracranial mass, peripheral vertigo, central vertigo. Discussed patient case with the physician Will obtain basic laboratory studies, UDS, urinalysis, lipase, magnesium level, PT/INR, proBNP, troponin, EKG, chest x-ray, CT head without contrast, CTA head and neck with without contrast for further evaluation of characterization Urinalysis notable for 2+ proteinuria, 1+ hematuria, nitrite positive, 2+ leukocyte esterase. CBC is notable for leukocytosis 16.4, thrombocytosis at 502, otherwise unremarkable CBC. The patient's acute on chronic kidney injury with a creatinine of 3.4 which is somewhat and her baseline GFR is 15, will hold off on angiographic study at this time we will proceed with Noncon CT of the head, and perform walk test for the patient to assess for any global ataxia versus generalized weakness. CMP is notable for anion gap of 21.5, BUN is elevated at 75, creatinine is elevated at 3.2, GFR is 15 Coags within normal limit, UDS positive for benzodiazepines, positive for marijuana Will start 1 g IV ceftriaxone for UTI. Troponin within normal limits, proBNP is mildly elevated 2890 Reviewed the patient's chest x-ray along the corresponding radiologic report no acute findings. I reviewed the patient's CT head without contrast along the corresponding radiologic report, no acute intracranial abnormality, left mastoid air cell disease. Will give 1 L IV NS, for acute on chronic kidney injury. Discussed this patient's case with the hospitalist approximately 8:43 PM, he states he will come see the patient and potentially admit the patient for observation admission for acute on chronic kidney injury/UTI. Dr. Santoyo the hospital on exam of the patient except the patient for admission for acute on chronic kidney injury with generalized weakness and fall in the setting of a UTI. Patient will be admitted to the hospitalist service for further care/workup. I was consulted by the JOSEFINA, and we discussed the complexity of the problems being addressed.I approved the treatment and management plan for this patient?s care in the Emergency Department, thus performing a substantive portion of the medical decision making.Signed, Patrick Davis MD Critical Care <TANIA Clark - Last Filed: 02/19/24 21:41> Critical Care Time Critical Care Time: No
--- NOTE | 2024-02-19 16:51 | CT_ITS ---
PROCEDURE INFORMATION: Exam: CT Head Without Contrast Exam date and time: 02/19/2024 5:44 PM Age: 63 years old Clinical indication: Dizziness and other: Ataxia; Additional info: Dizziness, lightheadedness, ataxia TECHNIQUE: Imaging protocol: Computed tomography of the head without contrast. Radiation optimization: All CT scans at this facility use at least one of these dose optimization techniques: automated exposure control; mA and/or kV adjustment per patient size (includes targeted exams where dose is matched to clinical indication); or iterative reconstruction. COMPARISON: US CA CAROTID DUPLEX BI 06/26/2022 8:57 AM FINDINGS: Brain: Moderate cerebral atrophy. Moderate changes of chronic small vessel ischemia within the cerebral white matter regions bilaterally. No acute infarct or hemorrhage. Areas of encephalomalacia in the left frontal and occipital lobes. No mass or midline shift. Cerebral ventricles: No ventriculomegaly. Paranasal sinuses: Chronic bilateral maxillary sinus disease. Mastoid air cells: Left mastoid air cell opacification. Bones: Unremarkable. No acute fracture. Soft tissues: Unremarkable. IMPRESSION: 1. No acute intracranial abnormality. 2. Left mastoid air cell disease.
--- NOTE | 2024-02-19 16:51 | XR_ITS ---
PROCEDURE INFORMATION: Exam: XR Chest Exam date and time: 02/19/2024 5:09 PM Age: 63 years old Clinical indication: Shortness of breath; Additional info: Shortness of air TECHNIQUE: Imaging protocol: Radiologic exam of the chest. Views: 1 view. COMPARISON: CR XR CHEST PORTABLE 12/15/2023 2:27 PM FINDINGS: Tubes, catheters and devices: Cardiac pulse generator leads are unchanged in position. Left atrial appendage occlusal clip in place. Lungs: Unremarkable. No consolidation. Pleural spaces: Unremarkable. No pleural effusion. No pneumothorax. Heart/Mediastinum: Normal heart size. Bones/joints: Median sternotomy. IMPRESSION: No acute findings.
--- NOTE | 2024-02-19 17:04 | PC.NURSE ---
German MARIN is at bedside
[2024-02-19 17:09] LABS: Microscopic, Urine URINE MICROSCOPIC (MICROSCOPIC)
[2024-02-19 17:17] LABS: Bilirubin,Urine Negative (Negative); Blood, Urine 1+ (Negative); Color,Urine YELLOW (Yellow); Glucose,Urine (UA) Negative (Negative); Ketones,Urine Negative (Negative); Leukocyte Esterase,Urine 2+ (Negative); Nitrate,Urine POSITIVE (Negative); Protein,Urine 2+ (Negative); Urobilinogen,Urine 0.2 EU/dl (0.2)
[2024-02-19 17:20] LABS: Appearance,Urine Slightly Cloudy (Clear)
[2024-02-19 17:22] LABS: Albumin Level 4.1 g/dl (3.5-5.0); Chloride 108 mmol/L (98-107); Potassium 4.5 mmoL/L (3.5-5.1); Sodium 139 mmol/L (136-145)
[2024-02-19 17:23] LABS: Basophils # 0.1 K/mm3 (0-0.2); Basophils % 0.4 % (0.1-2.0); Eosinophils # 0.2 K/mm3 (0.0-0.4); Eosinophils % 1.3 % (0.1-12.0); Hematocrit 38.4 % (37.0-47.0); Hemoglobin 12.3 g/dL (12.2-16.2); Lymphocytes # 1.4 K/mm3 (0.7-4.5); Lymphocytes % 8.3 % (10-50); Mean Corpuscular Hemoglobin 28.1 pg (27.0-31.2); Mean Corpuscular Volume 87.7 fl (81-99); Mean Platelet Volume 10.6 fl (7.4-10.4); Monocytes # 0.6 K/mm3 (0.1-1.0); Monocytes % 3.9 % (1.7-9.3); Neutrophils # 13.9 K/mm3 (1.8-7.8); Neutrophils % 84.5 % (37.0-80.0); Platelet Count 502 K/mm3 (142-424); Red Blood Count 4.38 M/mm3 (4.20-5.40); Red Cell Distribution Width 17.2 % (11.5-17.5); White Blood Count 16.4 K/mm3 (4.8-10.8)
[2024-02-19 17:25] LABS: Alanine Aminotransferase 13 U/L (12-78); Albumin/Globulin Ratio 1.2 (1.1-1.8); Alkaline Phosphatase 83 U/L (38-126); Anion Gap 21.5 mEq/L (5-15); Aspartate Amino Transferase 28 U/L (14-36); Bilirubin,Total 0.6 mg/dl (0.2-1.3); Blood Urea Nitrogen 75 mg/dl (7-17); Calcium 9.3 mg/dl (8.4-10.2); Carbon Dioxide 14 mmol/L (22.0-30.0); Creatinine Clearance Estimated 18 mL/min (50-200); Estimated Glomerular Filt Rate 15 ml/min (>60); GFR (African American) 18 ML/MIN (>60); Globulin 3.5 g/dL (1.3-3.2); Glucose 211 mg/dl (74-100); Lipase 64 U/L (23-300); Total Protein,Serum 7.6 g/dl (6.3-8.2)
[2024-02-19 17:26] LABS: Magnesium 2.1 mg/dl (1.6-2.3)
[2024-02-19 17:27] LABS: MANUAL DIFFERENTIAL MANUAL DIFFERENTIAL (MANUAL DIFF)
[2024-02-19 17:31] LABS: INR 0.91 (0.9-1.1); Prothrombin Time 10.3 seconds (10.1-12.5)
[2024-02-19 17:32] LABS: Amphetamine/Metha Screen,Urine Negative ng/ml (<1000)
[2024-02-19 17:33] LABS: Barbiturates Screen,Urine Negative ng/ml (<200); Benzodiazepines Screen,Urine Positive ng/ml (<200)
[2024-02-19 17:34] LABS: Cannabinoid Screen,Urine Positive ng/ml (<50)
[2024-02-19 17:35] LABS: NT Pro Brain Natriuretic Pep. 2890 pg/mL (0-125)
[2024-02-19 17:35] LABS: Cocaine Screen,Urine Negative ng/ml (<300); Methadone Screen,Urine Negative ng/ml (<300)
[2024-02-19 17:39] LABS: Troponin I < 0.01 ng/ml (0.00-0.034)
[2024-02-19 17:40] LABS: Opiate Screen,Urine Negative ng/ml (<300); Phencyclidine Screen,Urine Negative ng/ml (<25)
[2024-02-19 17:41] LABS: Bacteria,Urine 4+ /lpf; RBC,Urine TNTC #/hpf (0-3); WBC,Urine TNTC #/hpf (0-3)
[2024-02-19] MEDS: CEFTRIAXONE SODIUM 1 GM in 0.9 % SODIUM CHLORIDE 50 ML IV (17:49)
--- NOTE | 2024-02-19 18:16 | PC.NURSE ---
Pt provided ice water with provider approval.
[2024-02-19 18:30] LABS: Eosinophils % 1 % (0-3); Lymphocytes % 12 % (10-50); Monocytes % 8 % (2-9); Myelocytes % 1 (0-1); Neutrophils % 77 % (42-76); Platelet Estimate Moderate Increase; Total Cells Counted 100
[2024-02-19 18:31] LABS: Anisocytosis 2+; Macrocytosis 1+; Microcytosis 1+; Polychromasia 2+
[2024-02-19] MEDS: 0.9 % SODIUM CHLORIDE 1000ML 1,000 ML 999 ML IV (20:41)
[2024-02-19 21:04] LABS: Troponin I < 0.01 ng/ml (0.00-0.034)
--- NOTE | 2024-02-19 22:13 | PC.NURSE ---
Attempted to call report; Nurse not available. State they will call back.
--- NOTE | 2024-02-19 22:27 | EXP.HP ---
History of Present Illness *Admission Date: 02/19/24 *Reason for visit:: Falls *History of present illness: Laxmi Cronin is a 63-year-old female with a medical history significant for CAD s/p 2 stents 12/13/2023, HFrEF 40%, CABG 2015, AICD, A-fib s/p maze and MILLY clip, bioprosthetic mitral valve replacement supposed to be on chronic endocarditis on penicillin daily (used to follow with ID, lost to follow-up), CKD 3A, insulin-dependent diabetes, hypothyroidism, bladder cancer in remission with urostomy who presents for generalized weakness, lower extremity weakness, falls. She and daughter at bedside state this began yesterday when she had an episode where she felt dizzy, weak in the legs and fell. She had another episode today which prompted daughter to bring patient to the hospital. Workup in the ED significant for WBC 16.4 platelets 502 AGAP 21.5, creatinine 3.2, BNP 2890. UA grossly abnormal suggesting UTI. UDS positive for benzodiazepines, THC. CXR, head CT unremarkable. Given symptoms seem to be most suggestive of UTI, a walk test was trialed before discharge home. However, patient had significant lower extremity weakness and thus high risk to go home risk of falls. Case discussed with ED provider and decision was made to admit patient for UTI, generalized weakness, lower extremity weakness, falls. [facility] Disclaimer: The information contained in this section may have been updated after the patient was seen, as this information can be updated by other users. Medical History (Updated 02/19/24 @ 21:41 by TANIA Clark) Coronary artery disease Pacemaker at end of battery life Right kidney mass Pancreatic mass Vomiting Dental abscess Pain, dental Hematuria Complication of urostomy Nausea vomiting and diarrhea Hypotension Generalized weakness Hypovolemia E. coli UTI (urinary tract infection) Infection due to extended-spectrum jtzj-ebgxekbcu-neruojviz Klebsiella pneumoniae Yeast infection of the vagina Complicated UTI (urinary tract infection) STACY (acute kidney injury) Septic shock Severe sepsis with acute organ dysfunction Cellulitis Candidiasis Abdominal pannus Nausea & vomiting Presence of urostomy Presence of urostomy Vitamin D deficiency Biventricular cardiac pacemaker in situ Bacterial endocarditis Cardiac arrhythmia Bacteria present Obesity (BMI 30.0-34.9) Gastroenteritis due to norovirus Decreased blood volume Sepsis due to Streptococcus agalactiae Bacteremia Ileostomy in place Pacemaker Bladder cancer Diarrhea Fever UTI (urinary tract infection) Dehydration Diabetes mellitus Renal insufficiency Abscess of skin or subcutaneous tissue Renal insufficiency Valvular heart disease Palpitations Myocardial infarction HTN (hypertension), benign T2DM (type 2 diabetes mellitus) Depression CHF (congestive heart failure) Cancer Arrhythmia Anxiety Encounter for pre-operative cardiovascular clearance PAD (peripheral artery disease) Abnormal ankle brachial index (GOMEZ) PVD (peripheral vascular disease) HHD (hypertensive heart disease) Smoker HLD (hyperlipidemia) Carotid bruit Carotid artery stenosis CAD (coronary artery disease) Surgical History Hx of tonsillectomy History of mitral valve replacement S/P left atrial appendage ligation AICD (automatic cardioverter/defibrillator) present H/O tricuspid valve replacement History of coronary artery bypass graft Family History Other Cancer Diabetes Heart attack Social History Smoking Status: Never smoker second hand exposure: Yes alcohol intake: never substance use type: marijuana current occupational status: unemployed Travel in the last 8 weeks: None household members: family housing: house number of children: 2 current occupational exposures/hazards: No caffeine: Yes Have you lived/traveled outside [place] in past 30 days?: No Contact w/someone who lives/traveled outside US past 30 days?: No Exposure to someone with infectious disease in past 14 days?: No Do you have a fever (greater than 100.4 F or 38 C)?: No Have you tested positive for COVID-19: No Exposed to someone with COVID-19 in past 14 days?: No Do you have a sore throat?: No Do you have a cough?: No Do you have any weakness?: Yes Do you have any diarrhea?: No Are you experiencing any unusual bleeding?: No Do you have any muscle aches/pain?: No Do you have any abdominal pain?: No Are you experiencing loss of taste or smell?: No Other Medical History Have you received the Flu Vaccine for this season: No Have you received the Pneumonia Vaccine: No Meds Home Medications and Allergies Home Medications ?Medication ?Instructions ?Recorded ?Confirmed ?Type alprazolam 0.5 mg tablet 0.5 mg PO BIDP PRN Anxiety 12/12/23 02/19/24 History cholecalciferol (vitamin D3) 25 25 mcg PO DAILY 12/12/23 02/19/24 History mcg (1,000 unit) tablet citalopram 20 mg tablet 20 mg PO DAILY 12/12/23 02/19/24 History ergocalciferol (vitamin D2) 1,250 1,250 mcg PO WEEKLY 12/12/23 02/19/24 History mcg (50,000 unit) capsule insulin glargine 100 unit/mL (3 8 unit SQ HS 12/12/23 02/19/24 History mL) subcutaneous pen (Lantus Solostar U-100 Insulin) insulin human U-100 NPH-regulr 6 unit SQ BID 12/12/23 02/19/24 History 70-30 mix 100 unit/mL subcutaneous susp (Novolin 70/30 U-100 Insulin) trazodone 50 mg tablet 50 mg PO HS 12/12/23 02/19/24 History aspirin 81 mg tablet,delayed 81 mg PO DAILY 30 days #30 tabs 12/14/23 02/19/24 Rx release atorvastatin 40 mg tablet 40 mg PO HS 30 days #30 tabs 12/14/23 02/19/24 Rx clopidogrel 75 mg tablet 75 mg PO DAILY 30 days #30 tabs 12/14/23 02/19/24 Rx furosemide 40 mg tablet (Lasix) 40 mg PO DAILY #30 tabs 12/14/23 01/23/24 Rx sacubitril 24 mg-valsartan 26 mg 1 tab PO BID #60 tabs 12/23/23 01/23/24 Rx tablet (Entresto) amiodarone 200 mg tablet 200 mg PO DAILY #30 tabs 01/23/24 02/19/24 Rx cariprazine 1.5 mg capsule 1.5 mg PO DAILY 01/23/24 02/19/24 History (Vraylar) dapagliflozin propanediol 10 mg 10 mg PO DAILY #30 tabs 01/23/24 02/19/24 Rx tablet (Farxiga) ropinirole 1 mg tablet 1 mg PO DAILY 01/23/24 02/19/24 History New Prescriptions to Start Prescriptions: Allergies Allergy/AdvReac Type Severity Reaction Status Date / Time No Known Allergies Allergy Verified 01/23/24 10:27 Exam Data for Last 24 hours Vital signs and Labs for Last 24 Hours: Temp Pulse Resp BP Pulse Ox O2 Del Method 97.9 F 91 H 16 118/77 99 Room Air 02/19/24 22:24 02/19/24 22:24 02/19/24 22:24 02/19/24 22:24 02/19/24 22:00 02/19/24 22:24 Laboratory Results - last 24 hr 02/19/24 16:57: WBC 16.4 H, RBC 4.38, Hgb 12.3, Hct 38.4, MCV 87.7, MCH 28.1, MCHC 32.0, RDW 17.2, Plt Count 502 H, MPV 10.6 H, Neut % (Auto) 84.5 H, Lymph % (Auto) 8.3 L, Wilkinson % (Auto) 3.9, Eos % (Auto) 1.3, Baso % (Auto) 0.4, Neut # (Auto) 13.9 H, Lymph # (Auto) 1.4, Wilkinson # (Auto) 0.6, Eos # (Auto) 0.2, Baso # (Auto) 0.1, Total Counted 100, Neutrophils % (Manual) 77 H, Lymphocytes % (Manual) 12, Monocytes % (Manual) 8, Eosinophils % (Manual) 1, Metamyelocytes % 1.0, Myelocytes % 1, Platelet Estimate Moderate increase, Polychromasia 2+, Anisocytosis 2+, Microcytosis 1+, Macrocytosis 1+, PT 10.3, INR 0.91, Sodium 139, Potassium 4.5, Chloride 108 H, Carbon Dioxide 14 L, Anion Gap 21.5 H, BUN 75 H, Creatinine 3.20 H, Estimated Creat Clear 18, Estimated GFR 15 L*, Est GFR ( Amer) 18 L*, Glucose 211 H, Calcium 9.3, Magnesium 2.1, Total Bilirubin 0.6, AST 28, ALT 13, Alkaline Phosphatase 83, Troponin I < 0.01, NT-Pro-B Natriuret Pep 2890 H, Total Protein 7.6, Albumin 4.1, Globulin 3.5 H, Albumin/Globulin Ratio 1.2, Lipase 64 02/19/24 17:03: Urine Color Yellow, Urine Appearance Slightly cloudy, Urine pH 7.0, Ur Specific [place] 1.020, Urine Protein 2+ A, Urine Glucose (UA) Negative, Urine Ketones Negative, Urine Blood 1+ A, Urine Nitrate Positive A, Urine Bilirubin Negative, Urine Urobilinogen 0.2, Ur Leukocyte Esterase 2+ A, Urine RBC Tntc, Urine WBC Tntc, Ur Squamous Epith Cells 3-5, Urine Bacteria 4+, Urine Opiates Screen Negative, Urine Methadone Screen Negative, Ur Barbituates Screen Negative, Ur Phencyclidine Scrn Negative, Ur Amphetamines Screen Negative, U Benzodiazepines Scrn Positive H, Urine Cocaine Screen Negative, U Marijuana (THC) Screen Positive H 02/19/24 20:34: Troponin I < 0.01 I & O for Last 24 hours: Intake & Output 02/16/24 02/17/24 02/18/24 02/19/24 23:59 23:59 23:59 23:59 Weight 62.142 kg Constitutional Constitutional: no acute distress *Routine HEENT Exam Head: Present normocephalic Eye: Present EOMI and PERRL ENT: Present mucous membranes moist *Routine Neck Exam Neck: Present supple; Absent lymphadenopathy *Routine Respiratory Exam Respiratory: Present CTA bilaterally *Routine Cardiovascular Exam Cardiovascular: Present RRR *Routine Abdominal Exam Abdominal: Present soft and normoactive bowel sounds; Absent tenderness Comments: Urostomy viable without infections. *Routine Rectal Exam Rectal:: deferred *Routine Genitalia Exam Genitalia:: deferred *Routine Extremities Exam Extremities: Absent cyanosis, clubbing or edema *Routine Skin Exam Skin: Present warm; Absent rash *Routine Neurological Exam Neurological: Present alert and oriented X3 Assessment and Plan *Assessment and plan (1) UTI (urinary tract infection): Status: Acute Category: Medical Code(s): N39.0 - Urinary tract infection, site not specified (2) Generalized weakness: Status: Acute Category: Medical Code(s): R53.1 - Weakness (3) Fall: Status: Acute Category: Medical Code(s): W19.XXXA - Unspecified fall, initial encounter (4) Coronary artery disease: Status: Acute Category: Medical Code(s): I25.10 - Atherosclerotic heart disease of [place] coronary artery without angina pectoris (5) Paroxysmal atrial fibrillation: Status: Acute Category: Medical Code(s): I48.0 - Paroxysmal atrial fibrillation (6) CAD (coronary artery disease): Status: Acute Qualifiers: Coronary Disease-Associated Artery/Lesion type: [place] artery Category: Medical Code(s): I25.10 - Atherosclerotic heart disease of [place] coronary artery without angina pectoris (7) T2DM (type 2 diabetes mellitus): Status: Acute Qualifiers: Diabetes mellitus longterm insulin use: with longterm use Chronic kidney disease stage 3 subtype: stage 3a (GFR 45-59) Category: Medical Code(s): E11.9 - Type 2 diabetes mellitus without complications (8) CHF (congestive heart failure): Status: Acute Category: Medical Code(s): I50.9 - Heart failure, unspecified (9) Acute kidney injury superimposed on stage 3a chronic kidney disease: Status: Acute Category: Medical Code(s): N17.9 - Acute kidney failure, unspecified; N18.31 - Chronic kidney disease, stage 3a (10) ICD (implantable cardioverter-defibrillator) discharge: Status: Acute Category: Medical Code(s): Z45.02 - Encounter for adjustment and management of automatic implantable cardiac defibrillator Plan Laxmi Cronin is a 63-year-old female with a medical history significant for CAD s/p 2 stents 12/13/2023, HFrEF 40%, CABG 2015, AICD, A-fib s/p maze and MILLY clip, bioprosthetic mitral valve replacement supposed to be on chronic endocarditis on penicillin daily (used to follow with ID, lost to follow-up), CKD 4, insulin-dependent diabetes, hypothyroidism, bladder cancer in remission with urostomy who presents for generalized weakness, lower extremity weakness, falls. She and daughter at bedside state this began yesterday when she had an episode where she felt dizzy, weak in the legs and fell. She had another episode today which prompted daughter to bring patient to the hospital. Workup in the ED significant for WBC 16.4 platelets 502 AGAP 21.5, creatinine 3.2, BNP 2890. UA grossly abnormal suggesting UTI. UDS positive for benzodiazepines, THC. CXR, head CT unremarkable. Given symptoms seem to be most suggestive of UTI, a walk test was trialed before discharge home. However, patient had significant lower extremity weakness and thus high risk to go home risk of falls. Case discussed with ED provider and decision was made to admit patient for UTI, generalized weakness, lower extremity weakness, falls. #UTI #Generalized weakness #Lower extremity weakness ? Symptoms seem to be most related to UTI as suggested by grossly abnormal UA. ? No focal neurological deficits. No acute findings on head CT. ? Started ceftriaxone day 02/15. ? Follow-up urine, blood cultures. ? PT/OT consulted, pending recommendations. ? Follow-up B12, folate, TSH, iron studies, respiratory panel. ? Patient is on Farxiga for HFrEF. May be beneficial to discontinue given recurrent UTIs. #STACY on CKD 4 #High anion metabolic acidosis ? Initial creatinine 3.2, creatinine 1.8 in December 2023. ? Initial AGAP 21.5, likely secondary to STACY on CKD with hyperuremia as well as likely possible lactic acidosis. ? Given 1 L bolus in the ED. Follow-up BMP in the morning. ? Follow-up lactic acid. ? Will need nephrology referral on discharge. #CAD s/p 2 stents #A-fib s/p maze and MILLY clip #Bioprosthetic mitral valve replacement with chronic endocarditis #CABG 2015 ? Continue aspirin 81 mg, Plavix 75 mg, atorvastatin 40 mg. ? Continue amiodarone 200 mg daily. ? Patient is apparently supposed to be on penicillin daily for chronic endocarditis. Will need ID referral on discharge. #HFrEF ? Hold off on diuresis at this time, GDMT in the setting of STACY on CKD. ? No signs of volume overload. #Type 2 diabetes ? Hemoglobin A1c 7.6 in December 2023. ? LDSSI, ACHS glucose checks. ? Resumed home Lantus 8 units nightly, increased to 12 units. Patient also takes 70/30 insulin. May be beneficial to discontinue this, and uptitrate on Lantus. ? Consider discontinuing Farxiga on discharge given recurrent UTIs #Anxiety/depression #Mood disorder ? Continue home citalopram, cariprazine. #Restless leg syndrome ? Continue home Requip. #History of bladder cancer in remission ? Urostomy bag in place and viable. Full code DVT prophylaxis: Lovenox 30 mg
--- NOTE | 2024-02-19 22:40 | PC.NURSE ---
Patient arrived to floor via stretcher from ED at 22:37.
[2024-02-19 23:38] LABS: Troponin I < 0.01 ng/ml (0.00-0.034)
[2024-02-20] VITALS: BP 112/66; PULSE 87; RESP 13; TEMP 36.4; O2SAT 99
[2024-02-20 04:00] VITALS: BMI 25.8
[2024-02-20 04:05] VITALS: BP 98/58; PULSE 84; RESP 20; TEMP 37.3; O2SAT 94
--- NOTE | 2024-02-20 05:18 | PC.NURSE ---
Since arriving to the floor the patient has done well. She ate a sandwich,chips, and a cookie, and had a pop. She tolerated that well with no issues. She has had no complaints.
[2024-02-20 05:36] LABS: POC Glucose,Bedside 184 (70-110)
[2024-02-20] MEDS: humaLOG 100 UNITS/ML 10ML VIAL (SSI) SUBCUT ×2 (05:39→11:55)
[2024-02-20 06:52] LABS: Basophils # 0.1 K/mm3 (0-0.2); Basophils % 0.4 % (0.1-2.0); Eosinophils # 0.3 K/mm3 (0.0-0.4); Eosinophils % 2.3 % (0.1-12.0); Hematocrit 35.3 % (37.0-47.0); Hemoglobin 11.5 g/dL (12.2-16.2); Lymphocytes # 2.3 K/mm3 (0.7-4.5); Lymphocytes % 19.4 % (10-50); Mean Corpuscular HGB Conc 32.6 g/dL (31.8-35.4); Mean Corpuscular Hemoglobin 28.5 pg (27.0-31.2); Mean Corpuscular Volume 87.6 fl (81-99); Mean Platelet Volume 10.3 fl (7.4-10.4); Monocytes # 0.6 K/mm3 (0.1-1.0); Monocytes % 5.3 % (1.7-9.3); Neutrophils # 8.4 K/mm3 (1.8-7.8); Neutrophils % 71.6 % (37.0-80.0); Platelet Count 473 K/mm3 (142-424); Red Blood Count 4.03 M/mm3 (4.20-5.40); Red Cell Distribution Width 17.1 % (11.5-17.5); White Blood Count 11.8 K/mm3 (4.8-10.8)
[2024-02-20 07:09] LABS: Lactic Acid 0.9 mmol/L (0.7-2.1)
[2024-02-20 07:11] LABS: Alanine Aminotransferase 12 U/L (12-78); Albumin Level 3.5 g/dl (3.5-5.0); Albumin/Globulin Ratio 1.2 (1.1-1.8); Alkaline Phosphatase 86 U/L (38-126); Anion Gap 13.5 mEq/L (5-15); Aspartate Amino Transferase 20 U/L (14-36); Blood Urea Nitrogen 66 mg/dl (7-17); Calcium 8.7 mg/dl (8.4-10.2); Carbon Dioxide 16 mmol/L (22.0-30.0); Chloride 112 mmol/L (98-107); Creatinine Clearance Estimated 20 mL/min (50-200); Estimated Glomerular Filt Rate 16 ml/min (>60); GFR (African American) 20 ML/MIN (>60); Globulin 2.9 g/dL (1.3-3.2); Glucose 158 mg/dl (74-100); Magnesium 2.2 mg/dl (1.6-2.3); Potassium 3.5 mmoL/L (3.5-5.1); Sodium 138 mmol/L (136-145); Total Protein,Serum 6.4 g/dl (6.3-8.2)
[2024-02-20 07:25] LABS: Bilirubin,Total < 0.1 mg/dl (0.2-1.3)
[2024-02-20 08:00] VITALS: BP 110/55; PULSE 92; RESP 18; TEMP 36.5; O2SAT 96
[2024-02-20] MEDS: ASPIRIN EC 81MG TABLET 81 MG PO (08:18)
[2024-02-20] MEDS: CLOPIDOGREL 75MG TAB 75 MG PO (08:18)
[2024-02-20] MEDS: ENOXAPARIN 30MG/0.3ML SYRINGE 30 MG SUBCUT (08:18)
[2024-02-20] MEDS: CITALOPRAM 20MG TABLET 20 MG PO (08:18)
[2024-02-20] MEDS: ROPINIROLE 1MG TABLET 1 MG PO (08:18)
[2024-02-20] MEDS: AMIODARONE 200MG TABLET 200 MG PO (08:18)
[2024-02-20 08:25] LABS: NT Pro Brain Natriuretic Pep. 1470 pg/mL (0-125)
[2024-02-20 08:33] LABS: Free T4 (Free Thyroxine) 1.25 ng/dl (0.78-2.19)
[2024-02-20 08:46] LABS: Thyroid Stimulating Hormone 9.03 uIU/mL (0.465-4.68)
--- NOTE | 2024-02-20 09:00 | HMH.PTEV ---
Physical Therapy Evaluation Rehab PT IP Evaluation Start: 02/20/24 02:21 Freq: ONCE Status: Active Protocol: Document 02/20/24 08:11 LUIS ALBERTO (Rec: 02/20/24 08:59 LUIS ALBERTO [id number]) Subjective/History History History Per H&P: Laxmi Cronin is a 63-year-old female with a medical history significant for CAD s/p 2 stents 12/13/2023 , HFrEF 40%, CABG 2015, AICD, A-fib s/p maze and MILLY clip, bioprosthetic mitral valve replacement supposed to be on chronic endocarditis on penicillin daily (used to follow with ID, lost to follow -up), CKD 3A, insulin- dependent diabetes, hypothyroidism, bladder cancer in remission with urostomy who presents for generalized weakness, lower extremity weakness, falls. She and daughter at bedside state this began yesterday when she had an episode where she felt dizzy, weak in the legs and fell. She had another episode today which prompted daughter to bring patient to the hospital. Workup in the ED significant for WBC 16.4 platelets 502 AGAP 21.5, creatinine 3.2, BNP 2890. UA grossly abnormal suggesting UTI. UDS positive for benzodiazepines, THC. CXR, head CT unremarkable. Given symptoms seem to be most suggestive of UTI, a walk test was trialed before discharge home. However, patient had significant lower extremity weakness and thus high risk to go home risk of falls. Case discussed with ED provider and decision was made to admit patient for UTI, generalized weakness, lower extremity weakness, falls. Subjective Subjective PLOF: Pt reports she was IND with household mobility without using an AD. Pt reports she does not drive. Does not own a RW or any AD. Home: Lives with family in a single-story home with 2 [address]IAM. Available assistance: Pt has family who are home throughout the day. Intermittent times of being alone. Falls: 2 falls in the past couple of days. Pt reports her legs buckled on her. New diagnosis of cancer in past 12 No months? Rehab PT IP Eval Objective Appearance Patient Behavior Appropriate,Cooperative Patient Orientation Person Difficulty following instructions none Speech Pattern Clear Ambulation Patient Able to Ambulate Yes Ambulation Observation IP General Gait Pattern Observation No Deviations/Normal Ambulation Distance (feet) 50 Ambulation Assistive Device Rolling Walker Ambulation Ability Supervision/Stand by Balance Ability to Arise Able, uses arms to help Sitting Balance Steady, safe Standing Balance Steady, wide stance Dynamic Sitting Balance Ability Normal Dynamic Standing Balance Ability Good Transfers Bed Transfer Ability Independent Sit to Stand Bed Transfer Ability Supervision/Stand by Rehab PT IP prob,goals,plan Problems Date of Evaluation: 02/20/24 Discharge Plan PT Discharge Plan Pt with impaired gait speed and balance when not using RW. Pt ambulated with Modified IND/SUP when introduced to and educated on RW. Pt does not own a RW and would benefit from having RW prior to d/c from [facility] to maximize safety. Pt not appropriate for skilled acute care PT d/t mobility being IND/SUP. Recommending HH to address generalized weakness. Eval Complexity Eval Charge Codes 34175 - Moderate Complexity PHYSICIAN CERTIFICATION: I certify the specified therapy services for Laxmi Cronin are required, authorized, and reviewed every 30 days.
[2024-02-20 09:05] LABS: Vitamin B12 520 pg/mL (239-931)
[2024-02-20 09:40] LABS: Folate 4.66 ng/mL
--- NOTE | 2024-02-20 09:47 | HMH.PHAINT1 ---
Pharmacy Intervention Comments: VERIFIED MEDICATIONS WITH OUTPATIENT PHARMACY, CONFIRMED WITH PATIENT. PATIENT CONFUSED ON WHAT MEDICATIONS SHE TAKES, SAYS SHE TAKES WHATEVER HER DAUGHTER GIVES HER. POTENTIAL TO CONFIRM MEDICATIONS WITH DAUGHTER AT LATER TIME.
[2024-02-20 09:57] LABS: Iron 71 ug/dL (37-170)
[2024-02-20 10:02] LABS: Hemoglobin A1C 6.8 % (4.0-6.0)
[2024-02-20 10:07] LABS: Total Iron Binding Capacity 311 ug/dL (265-497)
--- NOTE | 2024-02-20 10:08 | HMH.OTEV ---
OT Inpatient Evaluation Rehab OT IP Evaluation Start: 02/20/24 02:20 Freq: ONCE Status: Active Protocol: [facility] 02/20/24 10[facility]05 [facility] (Rec: 02/20/24 10:08 [facility] [id number]) Rehab OT IP Assessment Subjective History Pt oriented x 4 on arrival. Pt agreeable to engage in therapy evaluation. Pt admitted on 02/18/23 due to falls and UTI. History and physical: Laxmi Cronin is a 63- year-old female with a medical history significant for CAD s /p 2 stents 12/13/2023, HFrEF 40%, CABG 2015, AICD, A-fib s/ p maze and MILLY clip, bioprosthetic mitral valve replacement supposed to be on chronic endocarditis on penicillin daily (used to follow with ID, lost to follow -up), CKD 3A, insulin- dependent diabetes, hypothyroidism, bladder cancer in remission with urostomy who presents for generalized weakness, lower extremity weakness, falls. She and daughter at bedside state this began yesterday when she had an episode where she felt dizzy, weak in the legs and fell. She had another episode today which prompted daughter to bring patient to the hospital. Workup in the ED significant for WBC 16.4 platelets 502 AGAP 21.5, creatinine 3.2, BNP 2890. UA grossly abnormal suggesting UTI. UDS positive for benzodiazepines, THC. CXR, head CT unremarkable. Given symptoms seem to be most suggestive of UTI, a walk test was trialed before discharge home. However, patient had significant lower extremity weakness and thus high risk to go home risk of falls. Case discussed with ED provider and decision was made to admit patient for UTI, generalized weakness, lower extremity weakness, falls Subjective I feel much better. Prior to being in the hospital , pt lived at home with her family. Pt claims normally she is independent with all ADLs and IADLs. She does not require any type of AE during functional transfers. She no longer drives. Objective Patient Orientation Person,Place,Birthday,Year Right Upper Extremity Gross ROM WFL Left Upper Extremity Gross ROM WFL Bed Mobility bed mobility-scooting,bed mobility - supine/sit Assist Level Supervision/Stand by Transfer Training Sit/Stand Transfer Assist Level Supervision/Stand by Chair Transfer Ability Supervision/Stand by Chair Transfer Technique Sit to/from Ambulatory Chair Transfer Assistive Devices Rolling Walker Lower Body Dressing Ability Standby Assistance Performing Toilet Hygiene Ability Standby Assistance Overall Commode/Toilet Transfer Ability Standby Assistance Commode/Toilet Transfer Technique Sit to/from Ambulatory Rehab OT IP prob,goals,plan Problems Date of Evaluation: 02/20/24 Rehab Potential Rehab Potential Innapropriate for Skilled Therapy Discharge Plan OT Discharge Plan Pt appears to be at baseline with functional transfers and ADL independence. Pt can return home with family once she is medically stable per physician. Eval Complexity Eval Charge Codes 18822 - Low Complexity PHYSICIAN CERTIFICATION: I certify the specified therapy services for Laxmi Cronin are required, authorized, and reviewed every 30 days.
--- NOTE | 2024-02-20 10:24 | CARE MANAGER ---
Patient would benefit from a rolling walker due to instability and a cane will not provide enough support.
--- NOTE | 2024-02-20 10:45 | EXP.DC.SUM ---
General Admission date:: 02/19/24 Discharge date: 02/20/24 HPI HPI HPI: Laxmi Cronin is a 63-year-old female with a medical history significant for CAD s/p 2 stents 12/13/2023, HFrEF 40%, CABG 2016, AICD, A-fib s/p maze and MILLY clip, bioprosthetic mitral valve replacement supposed to be on chronic endocarditis on penicillin daily (used to follow with ID, lost to follow-up), CKD 3A, insulin-dependent diabetes, hypothyroidism, bladder cancer in remission with urostomy who presents for generalized weakness, lower extremity weakness, falls. She and daughter at bedside state this began yesterday when she had an episode where she felt dizzy, weak in the legs and fell. She had another episode today which prompted daughter to bring patient to the hospital. Workup in the ED significant for WBC 16.4 platelets 502 AGAP 21.5, creatinine 3.2, BNP 2890. UA grossly abnormal suggesting UTI. UDS positive for benzodiazepines, THC. CXR, head CT unremarkable. Given symptoms seem to be most suggestive of UTI, a walk test was trialed before discharge home. However, patient had significant lower extremity weakness and thus high risk to go home risk of falls. Case discussed with ED provider and decision was made to admit patient for UTI, generalized weakness, lower extremity weakness, falls. Hospital Course Hospital Course Hospital Course: Laxmi Cronin is a 63-year-old female with a medical history significant for CAD s/p 2 stents 12/13/2023, HFrEF 40%, CABG 2016, AICD, A-fib s/p maze and MILLY clip, bioprosthetic mitral valve replacement supposed to be on chronic endocarditis on penicillin daily (used to follow with ID, lost to follow-up), CKD 4, insulin-dependent diabetes, hypothyroidism, bladder cancer in remission with urostomy who presents for generalized weakness, lower extremity weakness, falls. She and daughter at bedside state this began yesterday when she had an episode where she felt dizzy, weak in the legs and fell. She had another episode today which prompted daughter to bring patient to the hospital. Workup in the ED significant for WBC 16.4 platelets 502 AGAP 21.5, creatinine 3.2, BNP 2890. UA grossly abnormal suggesting UTI. UDS positive for benzodiazepines, THC. CXR, head CT unremarkable. Given symptoms seem to be most suggestive of UTI, a walk test was trialed before discharge home. However, patient had significant lower extremity weakness and thus high risk to go home risk of falls. Case discussed with ED provider and decision was made to admit patient for UTI, generalized weakness, lower extremity weakness, falls. Did well during admission. Walking around the halls with her walker after initiating antibiotics and getting IV fluids. Urine culture showing bacteria but speciation still pending at discharge. Discharged on Levaquin empirically based on previous cultures. Discharged home with home health. Problems addressed as follows: #UTI #Generalized weakness #Lower extremity weakness ? Symptoms seem to be most related to UTI as suggested by grossly abnormal UA. No focal neurological deficits. No acute findings on head CT. Started ceftriaxone on admission. Transitioned to Levaquin to complete course at discharge. Renally dosed every 48 hours. Will treat for total of 7 days. Urine culture grew E cloacae sensitive to levofloxacin. Should have clearance of infection. Recommend holding Farxiga given patient's recurrent UTIs. #STACY on CKD 4 #High anion metabolic acidosis ? Initial creatinine 3.2, creatinine 1.8 in December 2023. Showed improvement to 2.9 by morning of discharge. BUN 66. Encourage continued p.o. intake. Responded well to fluid bolus. Recommend referral to nephrology by PCP as an outpatient #CAD s/p 2 stents #A-fib s/p maze and MILLY clip #Bioprosthetic mitral valve replacement with chronic endocarditis #CABG 2015 ? Continue aspirin 81 mg, Plavix 75 mg, atorvastatin 40 mg. Continue amiodarone 200 mg daily. Patient is apparently supposed to be on penicillin daily for chronic endocarditis. Will need ID referral on discharge. #Type 2 diabetes ? Hemoglobin A1c 7.6 in December 2023. Treated sliding scale insulin during admission. Resume Lantus 8 units nightly. Continue Novolin 70/30 6 units twice daily. Discontinue Farxiga due to recurrent UTI due for repeat A1c next month. Defer to PCP. #Anxiety/depression #Mood disorder ? Continue home citalopram, cariprazine. #Restless leg syndrome ? Continue home Requip. #History of bladder cancer in remission ? Urostomy bag in place and viable. Exam Data for Last 24 hours Vital signs and Labs for Last 24 Hours: Temp Pulse Resp BP Pulse Ox O2 Del Method 97.7 F 92 H 18 110/55 L 96 Room Air 02/20/24 08:00 02/20/24 08:00 02/20/24 08:00 02/20/24 08:00 02/20/24 08:00 02/20/24 08:00 Laboratory Results - last 24 hr 02/19/24 16:57: WBC 16.4 H, RBC 4.38, Hgb 12.3, Hct 38.4, MCV 87.7, MCH 28.1, MCHC 32.0, RDW 17.2, Plt Count 502 H, MPV 10.6 H, Neut % (Auto) 84.5 H, Lymph % (Auto) 8.3 L, Baldwin % (Auto) 3.9, Eos % (Auto) 1.3, Baso % (Auto) 0.4, Neut # (Auto) 13.9 H, Lymph # (Auto) 1.4, Baldwin # (Auto) 0.6, Eos # (Auto) 0.2, Baso # (Auto) 0.1, Total Counted 100, Neutrophils % (Manual) 77 H, Lymphocytes % (Manual) 12, Monocytes % (Manual) 8, Eosinophils % (Manual) 1, Metamyelocytes % 1.0, Myelocytes % 1, Platelet Estimate Moderate increase, Polychromasia 2+, Anisocytosis 2+, Microcytosis 1+, Macrocytosis 1+, PT 10.3, INR 0.91, Sodium 139, Potassium 4.5, Chloride 108 H, Carbon Dioxide 14 L, Anion Gap 21.5 H, BUN 75 H, Creatinine 3.20 H, Estimated Creat Clear 18, Estimated GFR 15 L*, Est GFR ( Amer) 18 L*, Glucose 211 H, Calcium 9.3, Magnesium 2.1, Total Bilirubin 0.6, AST 28, ALT 13, Alkaline Phosphatase 83, Troponin I < 0.01, NT-Pro-B Natriuret Pep 2890 H, Total Protein 7.6, Albumin 4.1, Globulin 3.5 H, Albumin/Globulin Ratio 1.2, Lipase 64 02/19/24 17:03: Urine Color Yellow, Urine Appearance Slightly cloudy, Urine pH 7.0, Ur Specific Rio 1.020, Urine Protein 2+ A, Urine Glucose (UA) Negative, Urine Ketones Negative, Urine Blood 1+ A, Urine Nitrate Positive A, Urine Bilirubin Negative, Urine Urobilinogen 0.2, Ur Leukocyte Esterase 2+ A, Urine RBC Tntc, Urine WBC Tntc, Ur Squamous Epith Cells 3-5, Urine Bacteria 4+, Urine Opiates Screen Negative, Urine Methadone Screen Negative, Ur Barbituates Screen Negative, Ur Phencyclidine Scrn Negative, Ur Amphetamines Screen Negative, U Benzodiazepines Scrn Positive H, Urine Cocaine Screen Negative, U Marijuana (THC) Screen Positive H 02/19/24 20:34: Troponin I < 0.01 02/19/24 23:07: Troponin I < 0.01 02/20/24 05:29: POC Glucose 184 H 02/20/24 06:00: Iron 71, TIBC 311, Iron Saturation 22.56309, Ferritin 21.0, NT-Pro-B Natriuret Pep 1470 H, Vitamin B12 520, TSH 9.03 H 02/20/24 06:40: WBC 11.8 H D, RBC 4.03 L, Hgb 11.5 L, Hct 35.3 L, MCV 87.6, MCH 28.5, MCHC 32.6, RDW 17.1, Plt Count 473 H, MPV 10.3, Neut % (Auto) 71.6, Lymph % (Auto) 19.4, Baldwin % (Auto) 5.3, Eos % (Auto) 2.3, Baso % (Auto) 0.4, Neut # (Auto) 8.4 H, Lymph # (Auto) 2.3, Baldwin # (Auto) 0.6, Eos # (Auto) 0.3, Baso # (Auto) 0.1, Sodium 138, Potassium 3.5 D, Chloride 112 H, Carbon Dioxide 16 L, Anion Gap 13.5, BUN 66 H, Creatinine 2.90 H, Estimated Creat Clear 20, Estimated GFR 16 L*, Est GFR ( Amer) 20 L, Glucose 158 H D, Hemoglobin A1c 6.8 H, Lactate 0.9, Calcium 8.7, Magnesium 2.2, Total Bilirubin < 0.1 L, AST 20 D, ALT 12, Alkaline Phosphatase 86, Total Protein 6.4, Albumin 3.5 D, Globulin 2.9, Albumin/Globulin Ratio 1.2, Folate 4.66, Free T4 1.25 I & O for Last 24 hours: Intake & Output 02/17/24 02/18/24 02/19/24 02/20/24 23:59 23:59 23:59 23:59 Intake Total 500 / 500 Output Total 775 / 775 750 / 750 Balance -775 / -275 -250 / -250 Weight 62.051 kg 62.051 kg Microbiology Reports for the Last 24 Hours: Microbiology 02/19/24 17:03 Urine,Clean Catch Urine Culture - Preliminary Gram Negative Rods Constitutional Constitutional: no acute distress, chronically ill appearing and cooperative *Routine HEENT Exam Head: Present normocephalic Eye: Present EOMI and PERRL ENT: Present mucous membranes moist *Routine Neck Exam Neck: Present supple; Absent lymphadenopathy *Routine Respiratory Exam Respiratory: Present CTA bilaterally; Absent rhonchi, wheezes or crackles *Routine Cardiovascular Exam Cardiovascular: Present RRR *Routine Abdominal Exam Abdominal: Present soft and normoactive bowel sounds; Absent tenderness *Routine Rectal Exam Patient deferred: visual exam *Routine Exam Patient deferred: external exam *Routine Extremities Exam Extremities: Absent cyanosis, clubbing or edema *Routine Skin Exam Skin: Present warm; Absent rash *Routine Neurological Exam Neurological: Present alert, oriented X3 and moving all extremities; Absent altered mental status Results Data Completed and Pending Labs on day of discharge: Labs from last 24 hours 02/20/24 02/20/24 02/20/24 06:40 06:00 05:29 WBC 11.8 H D RBC 4.03 L Hgb 11.5 L Hct 35.3 L MCV 87.6 MCH 28.5 MCHC 32.6 RDW 17.1 Plt Count 473 H MPV 10.3 Neut % (Auto) 71.6 Lymph % (Auto) 19.4 Baldwin % (Auto) 5.3 Eos % (Auto) 2.3 Baso % (Auto) 0.4 Neut # (Auto) 8.4 H Lymph # (Auto) 2.3 Baldwin # (Auto) 0.6 Eos # (Auto) 0.3 Baso # (Auto) 0.1 Total Counted Neutrophils % (Manual) Lymphocytes % (Manual) Monocytes % (Manual) Eosinophils % (Manual) Metamyelocytes % Myelocytes % Platelet Estimate Polychromasia Anisocytosis Microcytosis Macrocytosis PT INR Sodium 138 Potassium 3.5 D Chloride 112 H Carbon Dioxide 16 L Anion Gap 13.5 BUN 66 H Creatinine 2.90 H Estimated Creat Clear 20 Estimated GFR 16 L* Est GFR ( Amer) 20 L Glucose 158 H D POC Glucose 184 H Hemoglobin A1c 6.8 H Lactate 0.9 Calcium 8.7 Magnesium 2.2 Iron 71 TIBC 311 Iron Saturation 22.41564 Ferritin 21.0 Total Bilirubin < 0.1 L AST 20 D ALT 12 Alkaline Phosphatase 86 Troponin I NT-Pro-B Natriuret Pep 1470 H Total Protein 6.4 Albumin 3.5 D Globulin 2.9 Albumin/Globulin Ratio 1.2 Lipase Vitamin B12 520 Folate 4.66 TSH 9.03 H Free T4 1.25 Urine Color Urine Appearance Urine pH Ur Specific Rio Urine Protein Urine Glucose (UA) Urine Ketones Urine Blood Urine Nitrate Urine Bilirubin Urine Urobilinogen Ur Leukocyte Esterase Urine RBC Urine WBC Ur Squamous Epith Cells Urine Bacteria Urine Opiates Screen Urine Methadone Screen Ur Barbituates Screen Ur Phencyclidine Scrn Ur Amphetamines Screen U Benzodiazepines Scrn Urine Cocaine Screen U Marijuana (THC) Screen 02/19/24 02/19/24 02/19/24 23:07 20:34 17:03 WBC RBC Hgb Hct MCV MCH MCHC RDW Plt Count MPV Neut % (Auto) Lymph % (Auto) Baldwin % (Auto) Eos % (Auto) Baso % (Auto) Neut # (Auto) Lymph # (Auto) Baldwin # (Auto) Eos # (Auto) Baso # (Auto) Total Counted Neutrophils % (Manual) Lymphocytes % (Manual) Monocytes % (Manual) Eosinophils % (Manual) Metamyelocytes % Myelocytes % Platelet Estimate Polychromasia Anisocytosis Microcytosis Macrocytosis PT INR Sodium Potassium Chloride Carbon Dioxide Anion Gap BUN Creatinine Estimated Creat Clear Estimated GFR Est GFR ( Amer) Glucose POC Glucose Hemoglobin A1c Lactate Calcium Magnesium Iron TIBC Iron Saturation Ferritin Total Bilirubin AST ALT Alkaline Phosphatase Troponin I < 0.01 < 0.01 NT-Pro-B Natriuret Pep Total Protein Albumin Globulin Albumin/Globulin Ratio Lipase Vitamin B12 Folate TSH Free T4 Urine Color Yellow Urine Appearance Slightly cloudy Urine pH 7.0 Ur Specific Rio 1.020 Urine Protein 2+ A Urine Glucose (UA) Negative Urine Ketones Negative Urine Blood 1+ A Urine Nitrate Positive A Urine Bilirubin Negative Urine Urobilinogen 0.2 Ur Leukocyte Esterase 2+ A Urine RBC Tntc Urine WBC Tntc Ur Squamous Epith Cells 3-5 Urine Bacteria 4+ Urine Opiates Screen Negative Urine Methadone Screen Negative Ur Barbituates Screen Negative Ur Phencyclidine Scrn Negative Ur Amphetamines Screen Negative U Benzodiazepines Scrn Positive H Urine Cocaine Screen Negative U Marijuana (THC) Screen Positive H 02/19/24 16:57 WBC 16.4 H RBC 4.38 Hgb 12.3 Hct 38.4 MCV 87.7 MCH 28.1 MCHC 32.0 RDW 17.2 Plt Count 502 H MPV 10.6 H Neut % (Auto) 84.5 H Lymph % (Auto) 8.3 L Baldwin % (Auto) 3.9 Eos % (Auto) 1.3 Baso % (Auto) 0.4 Neut # (Auto) 13.9 H Lymph # (Auto) 1.4 Baldwin # (Auto) 0.6 Eos # (Auto) 0.2 Baso # (Auto) 0.1 Total Counted 100 Neutrophils % (Manual) 77 H Lymphocytes % (Manual) 12 Monocytes % (Manual) 8 Eosinophils % (Manual) 1 Metamyelocytes % 1.0 Myelocytes % 1 Platelet Estimate Moderate increase Polychromasia 2+ Anisocytosis 2+ Microcytosis 1+ Macrocytosis 1+ PT 10.3 INR 0.91 Sodium 139 Potassium 4.5 Chloride 108 H Carbon Dioxide 14 L Anion Gap 21.5 H BUN 75 H Creatinine 3.20 H Estimated Creat Clear 18 Estimated GFR 15 L* Est GFR ( Amer) 18 L* Glucose 211 H POC Glucose Hemoglobin A1c Lactate Calcium 9.3 Magnesium 2.1 Iron TIBC Iron Saturation Ferritin Total Bilirubin 0.6 AST 28 ALT 13 Alkaline Phosphatase 83 Troponin I < 0.01 NT-Pro-B Natriuret Pep 2890 H Total Protein 7.6 Albumin 4.1 Globulin 3.5 H Albumin/Globulin Ratio 1.2 Lipase 64 Vitamin B12 Folate TSH Free T4 Urine Color Urine Appearance Urine pH Ur Specific Rio Urine Protein Urine Glucose (UA) Urine Ketones Urine Blood Urine Nitrate Urine Bilirubin Urine Urobilinogen Ur Leukocyte Esterase Urine RBC Urine WBC Ur Squamous Epith Cells Urine Bacteria Urine Opiates Screen Urine Methadone Screen Ur Barbituates Screen Ur Phencyclidine Scrn Ur Amphetamines Screen U Benzodiazepines Scrn Urine Cocaine Screen U Marijuana (THC) Screen Preliminary micro results at discharge 02/19/24 17:03 Urine Culture - Preliminary Urine,Clean Catch Gram Negative Rods DS: Diagnosis Discharge Diagnosis (1) UTI (urinary tract infection): Status: Acute Code(s): N39.0 - Urinary tract infection, site not specified (2) Generalized weakness: Status: Acute Code(s): R53.1 - Weakness (3) Fall: Status: Acute Code(s): W19.XXXA - Unspecified fall, initial encounter (4) Coronary artery disease: Status: Acute Code(s): I25.10 - Atherosclerotic heart disease of [place] coronary artery without angina pectoris (5) Paroxysmal atrial fibrillation: Status: Acute Code(s): I48.0 - Paroxysmal atrial fibrillation (6) T2DM (type 2 diabetes mellitus): Status: Acute Code(s): E11.9 - Type 2 diabetes mellitus without complications Qualifiers: Chronic kidney disease stage 3 subtype: stage 3a (GFR 45-59) Diabetes mellitus intermediate accountant insulin use: with intermediate accountant use (7) CHF (congestive heart failure): Status: Acute Code(s): I50.9 - Heart failure, unspecified (8) Acute kidney injury superimposed on stage 3a chronic kidney disease: Status: Acute Code(s): N17.9 - Acute kidney failure, unspecified; N18.31 - Chronic kidney disease, stage 3a (9) ICD (implantable cardioverter-defibrillator) discharge: Status: Acute Code(s): Z45.02 - Encounter for adjustment and management of automatic implantable cardiac defibrillator Meds Home Medications and Allergies Home Medications ?Medication ?Instructions ?Recorded ?Confirmed ?Type alprazolam 0.5 mg tablet 0.5 mg PO BIDP PRN Anxiety 12/12/23 02/20/24 History cholecalciferol (vitamin D3) 25 25 mcg PO DAILY 12/12/23 02/20/24 History mcg (1,000 unit) tablet citalopram 20 mg tablet 20 mg PO DAILY 12/12/23 02/20/24 History ergocalciferol (vitamin D2) 1,250 1,250 mcg PO WEEKLY 12/12/23 02/20/24 History mcg (50,000 unit) capsule insulin glargine 100 unit/mL (3 8 unit SQ HS 12/12/23 02/19/24 History mL) subcutaneous pen (Lantus Solostar U-100 Insulin) insulin human U-100 NPH-regulr 6 unit SQ BID 12/12/23 02/19/24 History 70-30 mix 100 unit/mL subcutaneous susp (Novolin 70/30 U-100 Insulin) trazodone 50 mg tablet 50 mg PO HS 12/12/23 02/19/24 History aspirin 81 mg tablet,delayed 81 mg PO DAILY 30 days #30 tabs 12/14/23 02/20/24 Rx release atorvastatin 40 mg tablet 40 mg PO HS 30 days #30 tabs 12/14/23 02/20/24 Rx clopidogrel 75 mg tablet 75 mg PO DAILY 30 days #30 tabs 12/14/23 02/20/24 Rx furosemide 40 mg tablet (Lasix) 40 mg PO DAILY #30 tabs 12/14/23 02/20/24 Rx sacubitril 24 mg-valsartan 26 mg 1 tab PO BID #60 tabs 12/23/23 02/20/24 Rx tablet (Entresto) amiodarone 200 mg tablet 200 mg PO DAILY #30 tabs 01/23/24 02/20/24 Rx cariprazine 1.5 mg capsule 1.5 mg PO DAILY 01/23/24 02/20/24 History (Vraylar) dapagliflozin propanediol 10 mg 10 mg PO DAILY #30 tabs 01/23/24 02/20/24 Rx tablet (Farxiga) ropinirole 1 mg tablet 1 mg PO DAILY 01/23/24 02/19/24 History levofloxacin 750 mg tablet 750 mg PO Q48H 5 days #3 tabs 02/20/24 Rx New Prescriptions to Start Prescriptions: levofloxacin Vincent Hernandez Allergies Allergy/AdvReac Type Severity Reaction Status Date / Time No Known Allergies Allergy Verified 01/23/24 10:27 Discharge Plan Disposition Patient Disposition: Home, Self-Care Condition: Good Follow up Plan Follow up with: Ivonne Jones APRN [Primary Care Provider] - 03/05/24 11:00 am Prescriptions/Medication Reconciliation: New levofloxacin 750 mg tablet 750 mg PO Q48H 5 Days Qty: 3 0RF Rx Instructions: first dose 02/21/24 Continued Entresto 24-26 mg tablet 1 tab PO BID Qty: 60 2RF ropinirole 1 mg tablet 1 mg PO DAILY Vraylar 1.5 mg capsule 1.5 mg PO DAILY amiodarone 200 mg tablet 200 mg PO DAILY Qty: 30 3RF dapagliflozin propanediol [Farxiga] 10 mg tablet 10 mg PO DAILY Qty: 30 2RF trazodone 50 mg tablet 50 mg PO HS alprazolam 0.5 mg tablet 0.5 mg PO BIDP PRN (Reason: Anxiety) citalopram 20 mg tablet 20 mg PO DAILY Novolin 70/30 U-100 Insulin 100 unit/mL (70-30) suspension 6 unit SQ BID ergocalciferol (vitamin D2) 1,250 mcg (50,000 unit) Capsule 1,250 mcg PO WEEKLY cholecalciferol (vitamin D3) 25 mcg (1,000 unit) Tablet 25 mcg PO DAILY insulin glargine [Lantus Solostar U-100 Insulin] 100 unit/mL (3 mL) insulin pen 8 unit SQ HS atorvastatin 40 mg Tablet 40 mg PO HS 30 Days Qty: 30 0RF clopidogrel 75 mg tablet 75 mg PO DAILY 30 Days Qty: 30 0RF Patient Comments: TAKE ONE TABLET BY MOUTH ONCE A DAY aspirin 81 mg Tablet,Delayed Release (Dr/Ec) 81 mg PO DAILY 30 Days Qty: 30 0RF Held furosemide [Lasix] 40 mg tablet 40 mg PO DAILY Qty: 30 0RF Hold Instructions: Doctor's Order Problem Reconciliation Problems Reviewed?: Yes Patient Discharge Instructions ACTIVITY: Continue current activity DIET: continue same diet Patient Instructions: DI for Urinary Tract Infection (UTI), DI for Fatigue, How to Prevent Falls Print Language: Yakut Providers Primary Care Provider: Ivonne Jones Admit Provider: Demetri Santoyo Attending Provider: Demetri Santoyo
[2024-02-20 11:47] LABS: POC Glucose,Bedside 264 (70-110)
[2024-02-20] MEDS: CEFTRIAXONE 1 GM 1 GM in 0.9 % SODIUM CHLORIDE 50 ML IV (12:00)
--- NOTE | 2024-02-20 13:49 | SW/DCPLANNER ---
Per PT/OT no needs at this time aside from a rolling walker.
--- NOTE | 2024-02-20 15:25 | HMH.PHAINT1 ---
Pharmacy Intervention Comments: COUNSELED PATIENT ON NEW MEDICATION WELL WHEN TO RESUME HER FUROSEMIDE (HELD FOR 4 DAYS UNTIL 02/24/24). PATIENT VERBALIZED UNDERSTANDING.
--- NOTE | 2024-02-21 10:44 | SW/DCPLANNER ---
Spoke with patient on the phone. Patient stated that she is doing better. Patient stated that she is aware of her upcoming appointments and that she has no concerns or questions at this time. Patient stated that she got her new medicine before she left the hospital. Emmanuelle Moeller
== END 2024-02-20 16:32 | disposition home or self-care (01) ==
LOC: ER 21:41 → 2ND 22:14
PROVIDERS: Physician Assistant; Admitting Provider Student in an Organized Health Care Education/Training Program; Emergency Provider Emergency Medicine; PCP Nurse Practitioner Family; Visit Provider Student in an Organized Health Care Education/Training Program
DX: N39.0 Urinary tract infection, site not specified (principal); I50.22 Chronic systolic (congestive) heart failure; N18.4 Chronic kidney disease, stage 4 (severe); N17.9 Acute kidney failure, unspecified; B96.89 Other specified bacterial agents as the cause of diseases classified elsewhere; I25.10 Atherosclerotic heart disease of native coronary artery without angina pectoris; I48.0 Paroxysmal atrial fibrillation; I05.9 Rheumatic mitral valve disease, unspecified; F41.8 Other specified anxiety disorders; E11.9 Type 2 diabetes mellitus without complications; Z91.81 History of falling; Z85.51 Personal history of malignant neoplasm of bladder; Z77.22 Contact with and (suspected) exposure to environmental tobacco smoke (acute) (chronic); Z95.1 Presence of aortocoronary bypass graft; Z79.82 Long term (current) use of aspirin; G25.81 Restless legs syndrome
CPT/HCPCS: 70450; 71045; 80053; 80307; 81001; 82607; 82728; 82746; 82962; 83036; 83540; 83550; 83605; 83690; 83735; 83880; 84439; 84443; 84484; 85007; 85025; 85027; 85610; 87086; 87088; 87186; 93005; 97162; 97165; 99285; G0378; J0696; J1650; J7030

== ENCOUNTER 2024-03-05 11:27 | Emergency (ER) | payer MEDICARE, MEDICAID, SELFPAY ==
[2024-03-05] VITALS (38 sets, daily range): BP systolic 74–135; BP diastolic 37–74; PULSE 29–121; RESP 10–21; TEMP 33.6–37.1; O2SAT 93–99; BMI 25.9
--- NOTE | 2024-03-05 11:40 | ECG_ITS ---
APPROVED REPORT Exam: Resting ECG HR:77 bpm ECG Measurements Heart Rate 77 AXES QRSd 125 QRS 41 QT 421 T -39 QTc 453 Conclusion Atrial fibrillation ELECTRONIC VENTRICULAR PACEMAKER -- CONTOUR ANALYSIS BASED ON INTRINSIC RHYTHM MODERATE INTRAVENTRICULAR CONDUCTION DELAY [105+ ms QRS DURATION, 80+ ms Q/S IN V1/V2, NO Q AND 60+ ms R IN I/aVL/V5/V6] ST DEVIATION AND MODERATE T-WAVE ABNORMALITY, CONSIDER LATERAL ISCHEMIA [-0.1+ mV T-WAVE IN I/aVL/V5/V6] No STEMI Electronically signed by : ALVARADO WYATT, 03/08/2024 06:48:02
--- NOTE | 2024-03-05 12:12 | HMH.EDGENADL ---
Discharge Plan Disposition Patient Disposition: Xfer Short-Term Hosp Condition: Critical Prescriptions Prescriptions: No Action Entresto 24-26 mg tablet 1 tab PO BID Qty: 60 2RF ropinirole 1 mg tablet 1 mg PO DAILY Vraylar 1.5 mg capsule 1.5 mg PO DAILY dapagliflozin propanediol [Farxiga] 10 mg tablet 10 mg PO DAILY Qty: 30 2RF amiodarone 200 mg tablet 200 mg PO BID Qty: 60 5RF trazodone 50 mg tablet 50 mg PO HS alprazolam 0.5 mg tablet 0.5 mg PO BIDP PRN (Reason: Anxiety) citalopram 20 mg tablet 20 mg PO DAILY Novolin 70/30 U-100 Insulin 100 unit/mL (70-30) suspension 6 unit SQ BID ergocalciferol (vitamin D2) 1,250 mcg (50,000 unit) Capsule 1,250 mcg PO WEEKLY cholecalciferol (vitamin D3) 25 mcg (1,000 unit) Tablet 25 mcg PO DAILY insulin glargine [Lantus Solostar U-100 Insulin] 100 unit/mL (3 mL) insulin pen 8 unit SQ HS furosemide [Lasix] 40 mg tablet 40 mg PO DAILY Qty: 30 0RF atorvastatin 40 mg Tablet 40 mg PO HS 30 Days Qty: 30 0RF clopidogrel 75 mg tablet 75 mg PO DAILY 30 Days Qty: 30 0RF Patient Comments: TAKE ONE TABLET BY MOUTH ONCE A DAY aspirin 81 mg Tablet,Delayed Release (Dr/Ec) 81 mg PO DAILY 30 Days Qty: 30 0RF levofloxacin 750 mg tablet 750 mg PO Q48H 5 Days Qty: 3 0RF Rx Instructions: first dose 02/21/24 Referrals Follow up/Referrals: Ivonne Jones APRN [Primary Care Provider] - See instructions Activity Restrictions/Add. Instructions Additional Instructions/Restrictions: Transfer to [facility] ICU care of Dr. Fonseca Clinical Impressions Clinical Impression: Shock, Hypothermia Acute on chronic kidney failure Qualifiers: Acute renal failure type: unspecified Stand Alone Forms Stand Alone Forms: Transfer Record - ED Print Language Print Language: Mosotho Discharge ED Provider: Kar Payne General Adult HPI <TANIA Maxwell - Last Filed: 03/05/24 20:27> General Chief complaint: Weakness Stated complaint: can't walk, weak Time Seen by Provider: 03/05/24 12:11 Mode of Arrival: Wheelchair Source of Information: Patient and Parent(s) Limitations: No Limitations Description of Symptoms (Recalled from ER Triage Doc. by RN): c/o weakness and vomiting this morning. family reports that she hasnt had much of an appetite or drinking much. was dc a few weeks ago from her for uti History of Present Illness HPI narrative: Patient brought in for weakness and vomiting. Patient's daughter noted that she was unwell appearing this morning and that her mom had called her saying that she wanted to come to the hospital. She reports that she has not been eating much or drinking much. Patient has lost ability to walk she is profoundly weak she denies however chest pain fever chills hemoptysis hematochezia melena nausea diarrhea but does report that she is feeling cold. Related Data Home Medications ?Medication ?Instructions ?Recorded ?Confirmed alprazolam 0.5 mg tablet 0.5 mg PO BIDP PRN Anxiety 12/12/23 02/20/24 cholecalciferol (vitamin D3) 25 25 mcg PO DAILY 12/12/23 02/20/24 mcg (1,000 unit) tablet citalopram 20 mg tablet 20 mg PO DAILY 12/12/23 02/20/24 ergocalciferol (vitamin D2) 1,250 1,250 mcg PO WEEKLY 12/12/23 02/20/24 mcg (50,000 unit) capsule insulin glargine 100 unit/mL (3 8 unit SQ HS 12/12/23 02/19/24 mL) subcutaneous pen (Lantus Solostar U-100 Insulin) insulin human U-100 NPH-regulr 6 unit SQ BID 12/12/23 02/19/24 70-30 mix 100 unit/mL subcutaneous susp (Novolin 70/30 U-100 Insulin) trazodone 50 mg tablet 50 mg PO HS 12/12/23 02/19/24 cariprazine 1.5 mg capsule 1.5 mg PO DAILY 01/23/24 02/20/24 (Vraylar) ropinirole 1 mg tablet 1 mg PO DAILY 01/23/24 02/19/24 Previous Rx's ?Medication ?Instructions ?Recorded aspirin 81 mg tablet,delayed 81 mg PO DAILY 30 days #30 tabs 12/14/23 release atorvastatin 40 mg tablet 40 mg PO HS 30 days #30 tabs 12/14/23 clopidogrel 75 mg tablet 75 mg PO DAILY 30 days #30 tabs 12/14/23 furosemide 40 mg tablet (Lasix) 40 mg PO DAILY #30 tabs 12/14/23 sacubitril 24 mg-valsartan 26 mg 1 tab PO BID #60 tabs 12/23/23 tablet (Entresto) dapagliflozin propanediol 10 mg 10 mg PO DAILY #30 tabs 01/23/24 tablet (Farxiga) levofloxacin 750 mg tablet 750 mg PO Q48H 5 days #3 tabs 02/20/24 amiodarone 200 mg tablet 200 mg PO BID #60 tabs 02/24/24 Allergies Allergy/AdvReac Type Severity Reaction Status Date / Time No Known Allergies Allergy Verified 01/23/24 10:27 [facility] <TANIA Maxwell - Last Filed: 03/05/24 20:27> [facility] Disclaimer: The information contained in this section may have been updated after the patient was seen, as this information can be updated by other users. Medical History (Updated 03/05/24 @ 19:28 by TANIA Maxwell) Coronary artery disease Pacemaker at end of battery life Right kidney mass Pancreatic mass Vomiting Dental abscess Pain, dental Hematuria Complication of urostomy Nausea vomiting and diarrhea Hypotension Generalized weakness Hypovolemia E. coli UTI (urinary tract infection) Infection due to extended-spectrum [id number] Klebsiella pneumoniae Yeast infection of the vagina Complicated UTI (urinary tract infection) STACY (acute kidney injury) Septic shock Severe sepsis with acute organ dysfunction Cellulitis Candidiasis Abdominal pannus Nausea & vomiting Presence of urostomy Presence of urostomy Vitamin D deficiency Biventricular cardiac pacemaker in situ Bacterial endocarditis Cardiac arrhythmia Bacteria present Obesity (BMI 30.0-34.9) Gastroenteritis due to norovirus Decreased blood volume Sepsis due to Streptococcus agalactiae Bacteremia Ileostomy in place Pacemaker Bladder cancer Diarrhea Fever UTI (urinary tract infection) Dehydration Diabetes mellitus Renal insufficiency Abscess of skin or subcutaneous tissue Renal insufficiency Valvular heart disease Palpitations Myocardial infarction HTN (hypertension), benign T2DM (type 2 diabetes mellitus) Depression CHF (congestive heart failure) Cancer Arrhythmia Anxiety Encounter for pre-operative cardiovascular clearance PAD (peripheral artery disease) Abnormal ankle brachial index (GOMEZ) PVD (peripheral vascular disease) HHD (hypertensive heart disease) Smoker HLD (hyperlipidemia) Carotid bruit Carotid artery stenosis CAD (coronary artery disease) Surgical History (Updated 02/24/24 @ 00:00 by Carlos Byrnes) Hx of tonsillectomy History of mitral valve replacement S/P left atrial appendage ligation AICD (automatic cardioverter/defibrillator) present H/O tricuspid valve replacement History of coronary artery bypass graft Family History Other Cancer Diabetes Heart attack Social History Smoking Status: Current every day smoker tobacco type: cigarettes packs per day: 1 second hand exposure: Yes alcohol intake: never substance use type: marijuana current occupational status: unemployed Travel in the last 8 weeks: None household members: family housing: house number of children: 2 current occupational exposures/hazards: No caffeine: Yes Have you lived/traveled outside [place] in past 30 days?: No Contact w/someone who lives/traveled outside US past 30 days?: No Exposure to someone with infectious disease in past 14 days?: No Do you have a fever (greater than 100.4 F or 38 C)?: No Have you tested positive for COVID-19: No Exposed to someone with COVID-19 in past 14 days?: No Do you have a sore throat?: No Do you have a cough?: No Do you have any weakness?: Yes Do you have any diarrhea?: No Are you experiencing any unusual bleeding?: No Do you have any muscle aches/pain?: No Do you have any abdominal pain?: No Are you experiencing loss of taste or smell?: No Other Medical History Have you received the Flu Vaccine for this season: No Have you received the Pneumonia Vaccine: No <TANIA Maxwell - Last Filed: 03/05/24 20:27> ROS Obtained: Yes Systems reviewed as appropriate & no additional complaints except as documented Physical Exam <TANIA Maxwell - Last Filed: 03/05/24 20:27> General General appearance: alert Respiratory Respiratory exam: Present normal lung sounds bilaterally Cardiovascular Cardiovascular exam: Present regular rate Neurological Exam Neurological exam: Present alert and oriented X3 Medical Decision Making <TANIA Maxwell - Last Filed: 03/05/24 20:27> Medical Records Medical records reviewed: Yes I reviewed the patient's medical records. Screening: Per USPSTF and CDC recommendations, given the prevalence of disease in our region, it is our hospital?s policy to screen for HIV and viral Hepatitis for all patients aged 18 and over and those with ongoing risk factors. [place] Inquiry Pt receiving controlled substance: No Vital Signs: 03/05/24 11:28 03/05/24 12:09 03/05/24 12:14 Temperature 92.5 F L Temperature Source Rectal Pulse Rate 69 68 Pulse Rate [Left Radial] 71 Respiratory Rate 18 Blood Pressure 77/39 L 84/44 L Blood Pressure [Right Arm] 88/43 L Blood Pressure Mean Blood Pressure Mean [Right Arm] 58 Blood Pressure Source Blood Pressure Position 02 Sat by Pulse Oximetry 99 96 97 Oxygen Delivery Method Room Air Room Air Room Air 03/05/24 12:15 03/05/24 12:23 03/05/24 12:24 Temperature Temperature Source Pulse Rate 68 71 66 Pulse Rate [Left Radial] Respiratory Rate 14 Blood Pressure 74/47 L 84/46 L 79/37 L Blood Pressure [Right Arm] Blood Pressure Mean 51 Blood Pressure Mean [Right Arm] Blood Pressure Source Blood Pressure Position 02 Sat by Pulse Oximetry 97 96 96 Oxygen Delivery Method Room Air Room Air Room Air 03/05/24 12:30 03/05/24 12:35 03/05/24 12:45 Temperature Temperature Source Pulse Rate 78 59 L 80 Pulse Rate [Left Radial] Respiratory Rate 13 13 14 Blood Pressure 88/42 L 83/42 L 91/56 L Blood Pressure [Right Arm] Blood Pressure Mean Blood Pressure Mean [Right Arm] Blood Pressure Source Blood Pressure Position 02 Sat by Pulse Oximetry 93 L 93 L 96 Oxygen Delivery Method 03/05/24 12:50 03/05/24 13:00 03/05/24 13:25 Temperature Temperature Source Pulse Rate 82 80 Pulse Rate [Left Radial] Respiratory Rate 10 L 13 12 Blood Pressure 104/51 L 130/56 L 98/49 L Blood Pressure [Right Arm] Blood Pressure Mean Blood Pressure Mean [Right Arm] Blood Pressure Source Blood Pressure Position 02 Sat by Pulse Oximetry 98 98 Oxygen Delivery Method Room Air 03/05/24 13:30 03/05/24 13:35 03/05/24 13:45 Temperature Temperature Source Pulse Rate 83 84 83 Pulse Rate [Left Radial] Respiratory Rate 18 12 21 Blood Pressure 106/55 L 101/49 L 86/50 L Blood Pressure [Right Arm] Blood Pressure Mean Blood Pressure Mean [Right Arm] Blood Pressure Source Blood Pressure Position 02 Sat by Pulse Oximetry 97 96 97 Oxygen Delivery Method Room Air Room Air Room Air 03/05/24 13:55 03/05/24 13:56 03/05/24 14:06 Temperature 93.1 F L 93.0 F L Temperature Source Rectal Rectal Pulse Rate 89 Pulse Rate [Left Radial] Respiratory Rate 20 Blood Pressure 85/43 L Blood Pressure [Right Arm] Blood Pressure Mean Blood Pressure Mean [Right Arm] Blood Pressure Source Blood Pressure Position 02 Sat by Pulse Oximetry 95 Oxygen Delivery Method Room Air 03/05/24 14:10 03/05/24 14:15 03/05/24 14:20 Temperature Temperature Source Pulse Rate 91 H 86 71 Pulse Rate [Left Radial] Respiratory Rate 13 12 12 Blood Pressure 100/46 L 109/45 L 99/48 L Blood Pressure [Right Arm] Blood Pressure Mean Blood Pressure Mean [Right Arm] Blood Pressure Source Blood Pressure Position 02 Sat by Pulse Oximetry 96 96 96 Oxygen Delivery Method Room Air Room Air Room Air 03/05/24 14:25 03/05/24 14:30 03/05/24 14:35 Temperature Temperature Source Pulse Rate 73 100 H 90 Pulse Rate [Left Radial] Respiratory Rate 12 12 12 Blood Pressure 103/51 L 113/74 104/48 L Blood Pressure [Right Arm] Blood Pressure Mean Blood Pressure Mean [Right Arm] Blood Pressure Source Blood Pressure Position 02 Sat by Pulse Oximetry 97 95 96 Oxygen Delivery Method Room Air Room Air Room Air 03/05/24 15:30 03/05/24 15:59 03/05/24 16:00 Temperature 94.4 F L Temperature Source Rectal Pulse Rate 85 Pulse Rate [Left Radial] Respiratory Rate 16 15 Blood Pressure 125/56 L 103/45 L Blood Pressure [Right Arm] Blood Pressure Mean Blood Pressure Mean [Right Arm] Blood Pressure Source Arterial Line Arterial Line Blood Pressure Position 02 Sat by Pulse Oximetry 96 96 Oxygen Delivery Method Room Air Room Air 03/05/24 16:30 03/05/24 17:00 03/05/24 17:30 Temperature Temperature Source Pulse Rate 88 105 H 60 Pulse Rate [Left Radial] Respiratory Rate 18 17 16 Blood Pressure 106/46 L 113/45 L 117/44 L Blood Pressure [Right Arm] Blood Pressure Mean Blood Pressure Mean [Right Arm] Blood Pressure Source Arterial Line Arterial Line Blood Pressure Position 02 Sat by Pulse Oximetry 95 94 L 99 Oxygen Delivery Method Room Air Room Air Room Air 03/05/24 18:00 03/05/24 18:30 03/05/24 19:00 Temperature Temperature Source Pulse Rate 29 L 101 H 103 H Pulse Rate [Left Radial] Respiratory Rate 17 19 19 Blood Pressure 114/43 L 109/43 L 90/50 L Blood Pressure [Right Arm] Blood Pressure Mean Blood Pressure Mean [Right Arm] Blood Pressure Source Arterial Line Arterial Line Blood Pressure Position 02 Sat by Pulse Oximetry 98 97 98 Oxygen Delivery Method Room Air Room Air 03/05/24 19:25 03/05/24 19:30 03/05/24 19:58 Temperature 98.8 F 98.2 F Temperature Source Rectal Oral Pulse Rate 94 H 99 H Pulse Rate [Left Radial] Respiratory Rate 18 18 Blood Pressure 88/70 L 119/46 L Blood Pressure [Right Arm] Blood Pressure Mean Blood Pressure Mean [Right Arm] Blood Pressure Source Arterial Line Blood Pressure Position Supine 02 Sat by Pulse Oximetry 98 Oxygen Delivery Method Room Air 03/05/24 20:00 03/05/24 20:15 Temperature Temperature Source Pulse Rate 102 H 121 H Pulse Rate [Left Radial] Respiratory Rate 13 18 Blood Pressure 135/48 L 122/46 L Blood Pressure [Right Arm] Blood Pressure Mean Blood Pressure Mean [Right Arm] Blood Pressure Source Blood Pressure Position 02 Sat by Pulse Oximetry 97 98 Oxygen Delivery Method Lab Data Lab results reviewed: Yes I reviewed the patient's lab results. Lab Results 03/05/24 11:50: WBC 11.5 H, RBC 3.57 L, Hgb 10.1 L, Hct 32.7 L, MCV 91.6, MCH 28.3, MCHC 30.9 L, RDW 19.3 H, Plt Count 259, MPV 11.5 H, Neut % (Auto) 83.6 H, Lymph % (Auto) 9.8 L, [place] % (Auto) 3.3, Eos % (Auto) 2.1, Baso % (Auto) 0.7, Neut # (Auto) 9.6 H, Lymph # (Auto) 1.1, [place] # (Auto) 0.4, Eos # (Auto) 0.2, Baso # (Auto) 0.1, PT 9.4, INR 0.83 L, Sodium 138, Potassium 4.3, Chloride 119 H, Carbon Dioxide < 5 L*, Anion Gap 18.3 H, BUN 130 H*, Creatinine 5.30 H, Estimated Creat Clear 11, Estimated GFR 8 L*, Est GFR ( Amer) 10 L*, Glucose 151 H, Calcium 9.0, Magnesium 3.1 H, Total Bilirubin 0.3, AST 23, ALT 11 L, Alkaline Phosphatase 120, Troponin I < 0.01, NT-Pro-B Natriuret Pep 1480 H, Total Protein 6.9, Albumin 3.8, Globulin 3.1, Albumin/Globulin Ratio 1.2, Procalcitonin 0.131, HCV Ab JUAN [place]ANCIS[place] w/Rflx PCR Qn Negative, HIV Ag/Ab Combo Qual Negative 03/05/24 12:34: Urine Color Yellow, Urine Appearance Cloudy, Urine pH >= 9.0 H, Ur Specific [place] 1.010, Urine Protein 2+ A, Urine Glucose (UA) Negative, Urine Ketones Negative, Urine Blood Trace-i, Urine Nitrate Negative, Urine Bilirubin Negative, Urine Urobilinogen 0.2, Ur Leukocyte Esterase 1+ A, Urine RBC 3-5, Urine WBC Occasional, Ur Squamous Epith Cells None, Urine Bacteria 3+ 03/05/24 12:42: Chlamy pneumoniae PCR Not detected, Adenovirus (PCR) Not detected, B. pertussis DNA (PCR) Not detected, Coronavirus OC43 (PCR) Not detected, Coronavirus HKU1 (PCR) Not detected, Coronavirus 229E (PCR) Not detected, SARS-CoV-2 (PCR) Not detected, Coronavirus NL63 (PCR) Not detected, Human Metapneumovir PCR Not detected, Influenza A (H1) PCR Not detected, Influ A (H1N1/09) PCR Not detected, Influenza A (H3) PCR Not detected, Influenza Type A (PCR) Not detected, Influenza Type B (PCR) Not detected, M. pneumoniae (PCR) Not detected, Parainfluenza 1 (PCR) Not detected, Parainfluenza 2 (PCR) Not detected, Parainfluenza 3 (PCR) Not detected, Parainfluenza 4 (PCR) Not detected, RSV (PCR) Not detected, Entero/Rhino (PCR) Not detected 03/05/24 15:05: Specimen Source A line, O2 % Room air, ABG pH 7.13 L*, ABG pCO2 23.4 L, ABG pO2 82.7, ABG HCO3 7.6 L, ABG Total CO2 8.3 L, ABG O2 Saturation 95, ABG Base Excess -21.6 L 03/05/24 15:35: Troponin I < 0.01 03/05/24 19:17: Troponin I < 0.01 03/05/24 11:50 03/05/24 11:50 Orders (Tests/Meds): ED MEDICATIONS Discontinued Medications Generic Name Dose Route Start Last Admin Trade Name Freq PRN Reason Stop Dose Admin Hydrocortisone Sodium Succinate 100 mg 03/05/24 17:55 03/05/24 19:27 Hydrocortisone Sod Succinate 100mg Vial IV 03/05/24 17:56 100 mg ONCE ONE Administration Norepinephrine Bitartrate 8 mg 258 mls @ 3.87 mls/hr 03/05/24 12:30 03/05/24 16:12 / Sodium Chloride IV 04/04/24 12:29 22 mcg/min .Q24H BIJAN 42.57 mls/hr Titration Protocol 2 MCG/MIN Lactated Ringer's 1,430 mls @ 715 mls/hr 03/05/24 12:32 03/05/24 12:43 Lactated Ringer's 1000 Ml Bag 30 ml/kg infuse over 2 hr (1430 ml) 03/05/24 14:31 715 mls/hr IV Administration .Q2H ONE Piperacillin Sod/Tazobactam 50 mls @ 100 mls/hr 03/05/24 14:15 03/05/24 15:16 Sod 3.375 gm/ Sodium Chloride IV 03/15/24 14:14 100 mls/hr Q6H BIJAN Administration Sodium Bicarbonate 150 meq/ 1,150 mls @ 100 mls/hr 03/05/24 14:09 03/05/24 15:15 Dextrose IV 04/04/24 14:08 Not Given .[id number] BIJAN Sodium Bicarbonate 150 meq/ 1,150 mls @ 100 mls/hr 03/05/24 15:15 03/05/24 15:50 Dextrose IV 03/06/24 02:44 100 mls/hr .[id number] BIJAN Administration ORDERS Category Date Time Status CT abdomen pelvis wo con Stat Cat Scan 03/05/24 13:[address] chest wo con Stat Cat Scan 03/05/24 13:00 Completed POCUS Point of Care (ER Only) Stat Exams 03/05/24 14:09 Completed BNP [NT Pro Brain Natriuretic Pep.] Stat Lab 03/05/24 11:50 Completed CBC w/Auto Diff [Complete Blood Count Auto Diff] Stat Lab 03/05/24 11:50 Completed CMP [Comprehensive Metabolic Panel] Stat Lab 03/05/24 11:50 Completed Full Resp Panel w/COVID ([facility]) Routine Lab 03/05/24 12:42 Completed HIV Combo Stat Lab 03/05/24 11:50 Completed Hepatitis C Ab Qual. W/ RFX Stat Lab 03/05/24 11:50 Completed INR [Prothrombin Time INR] Stat Lab 03/05/24 11:50 Completed Magnesium Stat Lab 03/05/24 11:50 Completed Procalcitonin Stat Lab 03/05/24 11:50 Completed Trop I [Troponin I] Stat Lab 03/05/24 11:50 Completed Troponin I Q3H Lab 03/05/24 15:35 Completed Troponin I Q3H Lab 03/05/24 19:17 Completed UA [Urinalysis and Microscopic] Stat Lab 03/05/24 12:34 Completed Blood Culture Stat Micro 03/05/24 12:49 Received Urine Culture Stat Micro 03/05/24 12:34 Received ABG [Arterial Blood Gas] Stat RT 03/05/24 15:05 Completed Medical Decision Narrative: In summary patient is a 3-year-old female who presents to the emergency department for evaluation of vomiting and weakness. Patient is hypotensive with a blood pressure of 88/43 pulse 71 respiratory rate is 18 rectal temperature is 92.5 satting at 99% on room air upon arrival. Physical exam reveals an unwell appearing chronically ill-appearing 63-year-old female who is awake and interactive appropriately. Patient's skin is cool to touch patient is awake alert and oriented person place and circumstance [place] Coma Score 15. Breath sounds are currently equal bilaterally to the bases. Abdomen soft nontender with normal bowel sounds. Patient has urine in her urostomy bag that appears clear. Differential diagnosis includes undifferentiated shock, septic shock, renal failure, ACS pneumonia etc. Initial workup will be conducted with hematologic labs CT scan abdomen pelvis chest blood cultures urinalysis VBG urinalysis blood cultures. Initial interventions include continuous cardiac monitoring pulse oximetry sepsis bolus Levophed. Initial workup reviewed by me is in acute renal failure on top of her chronic renal failure with a CO2 less than 5 anion gap of 18.3 BUN of 130 creatinine 5.3 GFR of 8 magnesium 3.1 normal white count with no left shift negative troponin and NT proBNP of 1480 a procalcitonin of 0.131 urinalysis from her urostomy tube that shows 3-5 red blood cells occasional white blood cells no squamous epithelial cells and 3+ bacteria however as urostomy tube it is not indicative clearly of infection. My informal interpretation of her imaging shows no obvious acute processes to explain patient's condition. I have initiated aggressive resuscitation for her numerous derangements including bicarb drip to address her acidosis and renal failure, stress dose steroids, broad-spectrum antibiotics, fluid resuscitation along with Levophed titration for her undifferentiated shock. I reevaluated multiple times during the patient's stay to assess mental status tissue perfusion and response to resuscitation. Initially hypotensive and heart rate along with hypothermia patient is in profound shock. Through the course of her stay in the emergency department she began to have an appropriate cardiac response after she was rewarmed and her hypothermia was corrected as well as initiating the bicarb drip. I attempted to call multiple facilities including [facility] to transfer the patient for nephrology evaluation and probable CRRT however there was no bed availability at those facilities. I ultimately called [facility] and and had interactive discussion with Dr. Trivedi of the critical access hospital ICU about patient management MARSH[place] and findings and she has been accepted for further evaluation and care <Kar Payne MD - Last Filed: 03/05/24 22:18> Vital Signs: 03/05/24 11:28 03/05/24 12:09 03/05/24 12:14 Temperature 92.5 F L Temperature Source Rectal Pulse Rate 69 68 Pulse Rate [Left Radial] 71 Respiratory Rate 18 Blood Pressure 77/39 L 84/44 L Blood Pressure [Right Arm] 88/43 L Blood Pressure Mean Blood Pressure Mean [Right Arm] 58 Blood Pressure Source Blood Pressure Position 02 Sat by Pulse Oximetry 99 96 97 Oxygen Delivery Method Room Air Room Air Room Air 03/05/24 12:15 03/05/24 12:23 03/05/24 12:24 Temperature Temperature Source Pulse Rate 68 71 66 Pulse Rate [Left Radial] Respiratory Rate 14 Blood Pressure 74/47 L 84/46 L 79/37 L Blood Pressure [Right Arm] Blood Pressure Mean 51 Blood Pressure Mean [Right Arm] Blood Pressure Source Blood Pressure Position 02 Sat by Pulse Oximetry 97 96 96 Oxygen Delivery Method Room Air Room Air Room Air 03/05/24 12:30 03/05/24 12:35 03/05/24 12:45 Temperature Temperature Source Pulse Rate 78 59 L 80 Pulse Rate [Left Radial] Respiratory Rate 13 13 14 Blood Pressure 88/42 L 83/42 L 91/56 L Blood Pressure [Right Arm] Blood Pressure Mean Blood Pressure Mean [Right Arm] Blood Pressure Source Blood Pressure Position 02 Sat by Pulse Oximetry 93 L 93 L 96 Oxygen Delivery Method 03/05/24 12:50 03/05/24 13:00 03/05/24 13:25 Temperature Temperature Source Pulse Rate 82 80 Pulse Rate [Left Radial] Respiratory Rate 10 L 13 12 Blood Pressure 104/51 L 130/56 L 98/49 L Blood Pressure [Right Arm] Blood Pressure Mean Blood Pressure Mean [Right Arm] Blood Pressure Source Blood Pressure Position 02 Sat by Pulse Oximetry 98 98 Oxygen Delivery Method Room Air 03/05/24 13:30 03/05/24 13:35 03/05/24 13:45 Temperature Temperature Source Pulse Rate 83 84 83 Pulse Rate [Left Radial] Respiratory Rate 18 12 21 Blood Pressure 106/55 L 101/49 L 86/50 L Blood Pressure [Right Arm] Blood Pressure Mean Blood Pressure Mean [Right Arm] Blood Pressure Source Blood Pressure Position 02 Sat by Pulse Oximetry 97 96 97 Oxygen Delivery Method Room Air Room Air Room Air 03/05/24 13:55 03/05/24 13:56 03/05/24 14:06 Temperature 93.1 F L 93.0 F L Temperature Source Rectal Rectal Pulse Rate 89 Pulse Rate [Left Radial] Respiratory Rate 20 Blood Pressure 85/43 L Blood Pressure [Right Arm] Blood Pressure Mean Blood Pressure Mean [Right Arm] Blood Pressure Source Blood Pressure Position 02 Sat by Pulse Oximetry 95 Oxygen Delivery Method Room Air 03/05/24 14:10 03/05/24 14:15 03/05/24 14:20 Temperature Temperature Source Pulse Rate 91 H 86 71 Pulse Rate [Left Radial] Respiratory Rate 13 12 12 Blood Pressure 100/46 L 109/45 L 99/48 L Blood Pressure [Right Arm] Blood Pressure Mean Blood Pressure Mean [Right Arm] Blood Pressure Source Blood Pressure Position 02 Sat by Pulse Oximetry 96 96 96 Oxygen Delivery Method Room Air Room Air Room Air 03/05/24 14:25 03/05/24 14:30 03/05/24 14:35 Temperature Temperature Source Pulse Rate 73 100 H 90 Pulse Rate [Left Radial] Respiratory Rate 12 12 12 Blood Pressure 103/51 L 113/74 104/48 L Blood Pressure [Right Arm] Blood Pressure Mean Blood Pressure Mean [Right Arm] Blood Pressure Source Blood Pressure Position 02 Sat by Pulse Oximetry 97 95 96 Oxygen Delivery Method Room Air Room Air Room Air 03/05/24 15:30 03/05/24 15:59 03/05/24 16:00 Temperature 94.4 F L Temperature Source Rectal Pulse Rate 85 Pulse Rate [Left Radial] Respiratory Rate 16 15 Blood Pressure 125/56 L 103/45 L Blood Pressure [Right Arm] Blood Pressure Mean Blood Pressure Mean [Right Arm] Blood Pressure Source Arterial Line Arterial Line Blood Pressure Position 02 Sat by Pulse Oximetry 96 96 Oxygen Delivery Method Room Air Room Air 03/05/24 16:30 03/05/24 17:00 03/05/24 17:30 Temperature Temperature Source Pulse Rate 88 105 H 60 Pulse Rate [Left Radial] Respiratory Rate 18 17 16 Blood Pressure 106/46 L 113/45 L 117/44 L Blood Pressure [Right Arm] Blood Pressure Mean Blood Pressure Mean [Right Arm] Blood Pressure Source Arterial Line Arterial Line Blood Pressure Position 02 Sat by Pulse Oximetry 95 94 L 99 Oxygen Delivery Method Room Air Room Air Room Air 03/05/24 18:00 03/05/24 18:30 03/05/24 19:00 Temperature Temperature Source Pulse Rate 29 L 101 H 103 H Pulse Rate [Left Radial] Respiratory Rate 17 19 19 Blood Pressure 114/43 L 109/43 L 90/50 L Blood Pressure [Right Arm] Blood Pressure Mean Blood Pressure Mean [Right Arm] Blood Pressure Source Arterial Line Arterial Line Blood Pressure Position 02 Sat by Pulse Oximetry 98 97 98 Oxygen Delivery Method Room Air Room Air 03/05/24 19:25 03/05/24 19:30 03/05/24 19:58 Temperature 98.8 F 98.2 F Temperature Source Rectal Oral Pulse Rate 94 H 99 H Pulse Rate [Left Radial] Respiratory Rate 18 18 Blood Pressure 88/70 L 119/46 L Blood Pressure [Right Arm] Blood Pressure Mean Blood Pressure Mean [Right Arm] Blood Pressure Source Arterial Line Blood Pressure Position Supine 02 Sat by Pulse Oximetry 98 Oxygen Delivery Method Room Air 03/05/24 20:00 03/05/24 20:15 Temperature Temperature Source Pulse Rate 102 H 121 H Pulse Rate [Left Radial] Respiratory Rate 13 18 Blood Pressure 135/48 L 122/46 L Blood Pressure [Right Arm] Blood Pressure Mean Blood Pressure Mean [Right Arm] Blood Pressure Source Blood Pressure Position 02 Sat by Pulse Oximetry 97 98 Oxygen Delivery Method Lab Data Lab Results 03/05/24 11:50: WBC 11.5 H, RBC 3.57 L, Hgb 10.1 L, Hct 32.7 L, MCV 91.6, MCH 28.3, MCHC 30.9 L, RDW 19.3 H, Plt Count 259, MPV 11.5 H, Neut % (Auto) 83.6 H, Lymph % (Auto) 9.8 L, Bandera % (Auto) 3.3, Eos % (Auto) 2.1, Baso % (Auto) 0.7, Neut # (Auto) 9.6 H, Lymph # (Auto) 1.1, Bandera # (Auto) 0.4, Eos # (Auto) 0.2, Baso # (Auto) 0.1, PT 9.4, INR 0.83 L, Sodium 138, Potassium 4.3, Chloride 119 H, Carbon Dioxide < 5 L*, Anion Gap 18.3 H, BUN 130 H*, Creatinine 5.30 H, Estimated Creat Clear 11, Estimated GFR 8 L*, Est GFR ( Amer) 10 L*, Glucose 151 H, Calcium 9.0, Magnesium 3.1 H, Total Bilirubin 0.3, AST 23, ALT 11 L, Alkaline Phosphatase 120, Troponin I < 0.01, NT-Pro-B Natriuret Pep 1480 H, Total Protein 6.9, Albumin 3.8, Globulin 3.1, Albumin/Globulin Ratio 1.2, Procalcitonin 0.131, HCV Ab JUAN FRANCISCO w/Rflx PCR Qn Negative, HIV Ag/Ab Combo Qual Negative 03/05/24 12:34: Urine Color Yellow, Urine Appearance Cloudy, Urine pH >= 9.0 H, Ur Specific Sax[place] 1.010, Urine Protein 2+ A, Urine Glucose (UA) Negative, Urine Ketones Negative, Urine Blood Trace-i, Urine Nitrate Negative, Urine Bilirubin Negative, Urine Urobilinogen 0.2, Ur Leukocyte Esterase 1+ A, Urine RBC 3-5, Urine WBC Occasional, Ur Squamous Epith Cells None, Urine Bacteria 3+ 03/05/24 12:42: Chlamy pneumoniae PCR Not detected, Adenovirus (PCR) Not detected, B. pertussis DNA (PCR) Not detected, Coronavirus OC43 (PCR) Not detected, Coronavirus HKU1 (PCR) Not detected, Coronavirus 229E (PCR) Not detected, SARS-CoV-2 (PCR) Not detected, Coronavirus NL63 (PCR) Not detected, Human Metapneumovir PCR Not detected, Influenza A (H1) PCR Not detected, Influ A (H1N1/09) PCR Not detected, Influenza A (H3) PCR Not detected, Influenza Type A (PCR) Not detected, Influenza Type B (PCR) Not detected, M. pneumoniae (PCR) Not detected, Parainfluenza 1 (PCR) Not detected, Parainfluenza 2 (PCR) Not detected, Parainfluenza 3 (PCR) Not detected, Parainfluenza 4 (PCR) Not detected, RSV (PCR) Not detected, Entero/Rhino (PCR) Not detected 03/05/24 15:05: Specimen Source A line, O2 % Room air, ABG pH 7.13 L*, ABG pCO2 23.4 L, ABG pO2 82.7, ABG HCO3 7.6 L, ABG Total CO2 8.3 L, ABG O2 Saturation 95, ABG Base Excess -21.6 L 03/05/24 15:35: Troponin I < 0.01 03/05/24 19:17: Troponin I < 0.01 Orders (Tests/Meds): ED MEDICATIONS Discontinued Medications Generic Name Dose Route Start Last Admin Trade Name Freq PRN Reason Stop Dose Admin Hydrocortisone Sodium Succinate 100 mg 03/05/24 17:55 03/05/24 19:27 Hydrocortisone Sod Succinate 100mg Vial IV 03/05/24 17:56 100 mg ONCE ONE Administration Norepinephrine Bitartrate 8 mg 258 mls @ 3.87 mls/hr 03/05/24 12:30 03/05/24 16:12 / Sodium Chloride IV 04/04/24 12:29 22 mcg/min .Q24H BIJAN 42.57 mls/hr Titration Protocol 2 MCG/MIN Lactated Ringer's 1,430 mls @ 715 mls/hr 03/05/24 12:32 03/05/24 12:43 Lactated Ringer's 1000 Ml Bag 30 ml/kg infuse over 2 hr (1430 ml) 03/05/24 14:31 715 mls/hr IV Administration .Q2H ONE Piperacillin Sod/Tazobactam 50 mls @ 100 mls/hr 03/05/24 14:15 03/05/24 15:16 Sod 3.375 gm/ Sodium Chloride IV 03/15/24 14:14 100 mls/hr Q6H BIJAN Administration Sodium Bicarbonate 150 meq/ 1,150 mls @ 100 mls/hr 03/05/24 14:09 03/05/24 15:15 Dextrose IV 04/04/24 14:08 Not Given .[id number] BIJAN Sodium Bicarbonate 150 meq/ 1,150 mls @ 100 mls/hr 03/05/24 15:15 03/05/24 15:50 Dextrose IV 03/06/24 02:44 100 mls/hr .[id number] BIJAN Administration ORDERS Category Date Time Status CT abdomen pelvis wo con Stat Cat Scan 03/05/24 13:[address] chest wo con Stat Cat Scan 03/05/24 13:00 Completed POCUS Point of Care (ER Only) Stat Exams 03/05/24 14:09 Completed BNP [NT Pro Brain Natriuretic Pep.] Stat Lab 03/05/24 11:50 Completed CBC w/Auto Diff [Complete Blood Count Auto Diff] Stat Lab 03/05/24 11:50 Completed CMP [Comprehensive Metabolic Panel] Stat Lab 03/05/24 11:50 Completed Full Resp Panel w/COVID ([facility]) Routine Lab 03/05/24 12:42 Completed HIV Combo Stat Lab 03/05/24 11:50 Completed Hepatitis C Ab Qual. W/ RFX Stat Lab 03/05/24 11:50 Completed INR [Prothrombin Time INR] Stat Lab 03/05/24 11:50 Completed Magnesium Stat Lab 03/05/24 11:50 Completed Procalcitonin Stat Lab 03/05/24 11:50 Completed Trop I [Troponin I] Stat Lab 03/05/24 11:50 Completed Troponin I Q3H Lab 03/05/24 15:35 Completed Troponin I Q3H Lab 03/05/24 19:17 Completed UA [Urinalysis and Microscopic] Stat Lab 03/05/24 12:34 Completed Blood Culture Stat Micro 03/05/24 12:49 Received Urine Culture Stat Micro 03/05/24 12:34 Received ABG [Arterial Blood Gas] Stat RT 03/05/24 15:05 Completed Medical Decision Narrative: In summary patient is a 3-year-old female who presents to the emergency department for evaluation of vomiting and weakness. Patient is hypotensive with a blood pressure of 88/43 pulse 71 respiratory rate is 18 rectal temperature is 92.5 satting at 99% on room air upon arrival. Physical exam reveals an unwell appearing chronically ill-appearing 63-year-old female who is awake and interactive appropriately. Patient's skin is cool to touch patient is awake alert and oriented person place and circumstance [place] Coma Score 15. Breath sounds are currently equal bilaterally to the bases. Abdomen soft nontender with normal bowel sounds. Patient has urine in her urostomy bag that appears clear. Differential diagnosis includes undifferentiated shock, septic shock, renal failure, ACS pneumonia etc. Initial workup will be conducted with hematologic labs CT scan abdomen pelvis chest blood cultures urinalysis VBG urinalysis blood cultures. Initial interventions include continuous cardiac monitoring pulse oximetry sepsis bolus Levophed. Initial workup reviewed by me is in acute renal failure on top of her chronic renal failure with a CO2 less than 5 anion gap of 18.3 BUN of 130 creatinine 5.3 GFR of 8 magnesium 3.1 normal white count with no left shift negative troponin and NT proBNP of 1480 a procalcitonin of 0.131 urinalysis from her urostomy tube that shows 3-5 red blood cells occasional white blood cells no squamous epithelial cells and 3+ bacteria however as urostomy tube it is not indicative clearly of infection. My informal interpretation of her imaging shows no obvious acute processes to explain patient's condition. I have initiated aggressive resuscitation for her numerous derangements including bicarb drip to address her acidosis and renal failure, stress dose steroids, broad-spectrum antibiotics, fluid resuscitation along with Levophed titration for her undifferentiated shock. I reevaluated multiple times during the patient's stay to assess mental status tissue perfusion and response to resuscitation. Initially hypotensive and heart rate along with hypothermia patient is in profound shock. Through the course of her stay in the emergency department she began to have an appropriate cardiac response after she was rewarmed and her hypothermia was corrected as well as initiating the bicarb drip. I attempted to call multiple facilities including [facility] to transfer the patient for nephrology evaluation and probable CRRT however there was no bed availability at those facilities. I ultimately called [facility] and and had interactive discussion with Dr. Trivedi of the critical access hospital ICU about patient management MARSHALL and findings and she has been accepted for further evaluation and care I was consulted by the JOSEFINA, and we discussed the complexity of the problems being addressed. I approved the treatment and management plan for this patient's care in the Emergency Department, thus performing a substantive portion of the medical decision making. I independently examined and interviewed patient. I agree with above. Critically ill with multisystem organ failure. Because patient high risk for clinical decompensation if discharged, deemed appropriate for transfer and inpatient admission. Results were relayed to patient who voiced understanding and patient was agreeable to transfer, inpatient admission, and management. Patient was graciously accepted and transferred to for further definitive management, under Dr. Raymundo Payne MD Procedures <Kar Payne MD - Last Filed: 03/05/24 22:18> Arterial Line Time Out Performed: No Size (Gauge): 20 Technique Used: guide wire technique Post-Procedure: line sutured into place Patient Tolerated Procedure: well Complications: none Site: left and radial Critical Care <TANIA Maxwell - Last Filed: 03/05/24 20:27> Critical Care Time Critical Care Time: Yes Attestation: On 03/05/24, the high probability of a clinically significant, sudden or life threatening deterioration of the following system(s) required my full and direct attention, intervention and personal management. The time I documented below is in addition to time spent performing reported procedures but includes the following listed in this critical care notation. Total Time Total Critical Care Time: 120
[2024-03-05 12:38] LABS: Basophils # 0.1 K/mm3 (0-0.2); Basophils % 0.7 % (0.1-2.0); Eosinophils # 0.2 K/mm3 (0.0-0.4); Eosinophils % 2.1 % (0.1-12.0); Hematocrit 32.7 % (37.0-47.0); Hemoglobin 10.1 g/dL (12.2-16.2); Lymphocytes # 1.1 K/mm3 (0.7-4.5); Lymphocytes % 9.8 % (10-50); Mean Corpuscular HGB Conc 30.9 g/dL (31.8-35.4); Mean Corpuscular Hemoglobin 28.3 pg (27.0-31.2); Mean Corpuscular Volume 91.6 fl (81-99); Mean Platelet Volume 11.5 fl (7.4-10.4); Monocytes # 0.4 K/mm3 (0.1-1.0); Monocytes % 3.3 % (1.7-9.3); Neutrophils # 9.6 K/mm3 (1.8-7.8); Neutrophils % 83.6 % (37.0-80.0); Platelet Count 259 K/mm3 (142-424); Red Blood Count 3.57 M/mm3 (4.20-5.40); Red Cell Distribution Width 19.3 % (11.5-17.5); White Blood Count 11.5 K/mm3 (4.8-10.8)
[2024-03-05 12:38] LABS: Microscopic, Urine URINE MICROSCOPIC (MICROSCOPIC)
[2024-03-05 12:40] LABS: Appearance,Urine CLOUDY (Clear); Bilirubin,Urine Negative (Negative); Blood, Urine TRACE-I (Negative); Color,Urine YELLOW (Yellow); Glucose,Urine (UA) Negative (Negative); Ketones,Urine Negative (Negative); Leukocyte Esterase,Urine 1+ (Negative); Nitrate,Urine Negative (Negative); Protein,Urine 2+ (Negative); Urobilinogen,Urine 0.2 EU/dl (0.2)
[2024-03-05 12:42] LABS: Albumin Level 3.8 g/dl (3.5-5.0); Chloride 119 mmol/L (98-107); Potassium 4.3 mmoL/L (3.5-5.1); Sodium 138 mmol/L (136-145)
[2024-03-05] MEDS: LACTATED RINGERS 1000ML 1,430 ML 715 ML IV (12:43)
[2024-03-05 12:45] LABS: Alanine Aminotransferase 11 U/L (12-78); Albumin/Globulin Ratio 1.2 (1.1-1.8); Alkaline Phosphatase 120 U/L (38-126); Aspartate Amino Transferase 23 U/L (14-36); Bilirubin,Total 0.3 mg/dl (0.2-1.3); Creatinine Clearance Estimated 11 mL/min (50-200); Estimated Glomerular Filt Rate 8 ml/min (>60); GFR (African American) 10 ML/MIN (>60); Globulin 3.1 g/dL (1.3-3.2); Glucose 151 mg/dl (74-100); Magnesium 3.1 mg/dl (1.6-2.3); Total Protein,Serum 6.9 g/dl (6.3-8.2)
[2024-03-05 12:46] LABS: PH,Urine >= 9.0 (5.0-8.5)
[2024-03-05 12:47] LABS: INR 0.83 (0.9-1.1); Prothrombin Time 9.4 seconds (9.2-12.1)
--- NOTE | 2024-03-05 12:51 | PC.NURSE ---
2nd blood culture sent to lab; blue band placed on left wrist. Family at BS
[2024-03-05 12:54] LABS: Adenovirus,PCR Not Detected (NotDetected); Coronavirus 229E Not Detected (NotDetected); Coronavirus NL63 Not Detected (NotDetected); Coronavirus OC43 Not Detected (NotDetected); Coronovirus HKU1,PCR Not Detected (NotDetected); Human Metapneumovirus Not Detected (NotDetected); Rhinovirus/Enterovirus Not Detected (NotDetected)
[2024-03-05 12:54] LABS: Anion Gap 18.3 mEq/L (5-15)
[2024-03-05 12:55] LABS: Bordetella Pertussis Not Detected (NotDetected); Chlamydophila Pneumoniae, PCR Not Detected (NotDetected); Coronavirus 19, PCR Not Detected (NotDetected); Influenza A, PCR Not Detected (NotDetected); Influenza AH1, 2009 Not Detected (NotDetected); Influenza AH1, PCR Not Detected (NotDetected); Influenza AH3,PCR Not Detected (NotDetected); Influenza B, PCR Not Detected (NotDetected); Mycoplasma Pneumoniae, PCR Not Detected (NotDetected); Parainfluenza 1, PCR Not Detected (NotDetected); Parainfluenza 2, PCR Not Detected (NotDetected); Parainfluenza 3, PCR Not Detected (NotDetected); Parainfluenza 4, PCR Not Detected (NotDetected); Respiratory Syncytial Virus Not Detected (NotDetected)
[2024-03-05 12:56] LABS: Blood Urea Nitrogen 130 mg/dl (7-17); Carbon Dioxide < 5 mmol/L (22.0-30.0); NT Pro Brain Natriuretic Pep. 1480 pg/mL (0-125)
--- NOTE | 2024-03-05 12:57 | PC.NURSE ---
Don aware of bun, creat, and co2
[2024-03-05 13:00] LABS: Troponin I < 0.01 ng/ml (0.00-0.034)
[2024-03-05 13:00] LABS: Bacteria,Urine 3+ /lpf; WBC,Urine Occasional #/hpf (0-3)
--- NOTE | 2024-03-05 13:00 | CT_ITS ---
PROCEDURE INFORMATION: Exam: CT Abdomen And Pelvis Without Contrast Exam date and time: 03/05/2024 1:12 PM Age: 63 years old Clinical indication: Abdominal pain; Generalized; Additional info: Shock TECHNIQUE: Imaging protocol: Computed tomography of the abdomen and pelvis without contrast. Radiation optimization: All CT scans at this facility use at least one of these dose optimization techniques: automated exposure control; mA and/or kV adjustment per patient size (includes targeted exams where dose is matched to clinical indication); or iterative reconstruction. COMPARISON: CT ABDOMEN PELVIS WO CON 03/10/2020 4:31 PM FINDINGS: Lungs: Lung bases are clear. Liver: Normal. No mass. Gallbladder and biliary ducts: Gallbladder is somewhat contracted limiting assessment. Pancreas: Unremarkable. Main pancreatic duct is not significantly dilated. Spleen: There are scattered calcified granulomas within the spleen, longstanding, otherwise spleen is unremarkable. Adrenal glands: Stable 2 cm low attenuating right adrenal lesion likely representing a benign adenoma. Left adrenal gland is unremarkable. Kidneys and ureters: There are few small cortical lesions in both kidneys measuring up to 3 cm some of which can not be resolved as simple cysts on this noncontrast study based on density readings. Some of the lesions have increased in size from prior study. No significant hydronephrosis. Stomach and bowel: Moderate degree of retained stool throughout the large bowel that may reflect some degree of constipation. Appendix: No evidence of appendicitis. Intraperitoneal space: Unremarkable. No free air. No significant fluid collection. Vasculature: Diffuse atherosclerotic changes of the abdominal aorta and iliac vessels. There is a bifurcated aortoiliac stent redemonstrated. Lymph nodes: Unremarkable. No enlarged lymph nodes. Urinary bladder: Urinary bladder has been removed. There is a urinary diversion procedure into a ileal conduit in right-sided ileostomy redemonstrated. There is a large parastomal hernia containing small and large bowel loops increased in size from prior study. Reproductive: Unremarkable as visualized. Bones/joints: Mild-moderate degenerative changes throughout the lumbar spine. No acute bony abnormalities. Soft tissues: Unremarkable. IMPRESSION: 1. No acute findings within the abdomen and pelvis. 2. Prior cystectomy with urinary diversion redemonstrated. Large peristomal hernia containing bowel loops mildly increased in size. 3. Bilateral renal cortical cystic lesions increased in size and number from prior study some of which can not be resolved as benign cysts. Recommend nonemergent renal ultrasound exam for further assessment. 4. Stable 2 cm right adrenal lesion believed to represent benign adenomas. 5. Moderate degree of retained stool throughout the large bowel that may reflect some degree of constipation. 6. Additional nonemergent findings as above.
--- NOTE | 2024-03-05 13:00 | CT_ITS ---
PROCEDURE INFORMATION: Exam: CT Chest Without Contrast; Diagnostic Exam date and time: 03/05/2024 1:12 PM Age: 63 years old Clinical indication: Cough and shortness of breath; Additional info: Shock TECHNIQUE: Imaging protocol: Diagnostic computed tomography of the chest without contrast. Radiation optimization: All CT scans at this facility use at least one of these dose optimization techniques: automated exposure control; mA and/or kV adjustment per patient size (includes targeted exams where dose is matched to clinical indication); or iterative reconstruction. COMPARISON: CR XR CHEST PORTABLE 02/19/2024 5:09 PM FINDINGS: Limitations: Study is technically limited due to motion artifact. Lungs: Lung bases are clear. Pleural spaces: Unremarkable. No pneumothorax. No pleural effusion. Heart: Heart is borderline enlarged. Pacemaker wires and ICD monitor is extending into the right atrium right ventricle. There is also epicardial pacemaker wires. Diffuse calcification of coronary arteries. No significant pericardial effusion. Lymph nodes: Unremarkable. No enlarged lymph nodes. Vasculature: Scattered atherosclerotic changes of the thoracic aorta. No aortic aneurysm. Bones/joints: Prior median sternotomy. No acute bony abnormalities detected. Soft tissues: Unremarkable. IMPRESSION: Limited study. Lungs clear. No active disease.
--- NOTE | 2024-03-05 13:06 | PC.NURSE ---
pt to CT via stretcher
[2024-03-05] MEDS: NOREPINEPHRINE BITARTRATE 8 MG in 0.9 % SODIUM CHLORIDE 250 ML 15.48 MG IV (13:10)
[2024-03-05 13:21] LABS: Hepatitis C Ab Qual. W/ RFX NEGATIVE (Negative)
[2024-03-05 13:27] LABS: HIV Combo NEGATIVE (Negative)
[2024-03-05 14:00] LABS: Procalcitonin 0.131 ng/mL (0.0-2.0)
--- NOTE | 2024-03-05 15:01 | PC.NURSE ---
CALLING [facility] TO TRANSFER PT FOR ACUTE RENAL FAILURE STILL WAITING FOR TRANSFER CENTER TO ANSWER CALL AT THIS TIME
--- NOTE | 2024-03-05 15:12 | PC.NURSE ---
RT at collecting ABG
[2024-03-05] MEDS: PIPERCILLIN/TAZO 3.375 GM in 0.9 % SODIUM CHLORIDE 50 ML IV (15:16)
[2024-03-05 15:17] LABS: ABG Base Excess -21.6 mmol/L (-2.4-2.3); ABG HCO3 7.6 mmhg (22.0-26.0); ABG Oxygen Saturation 95 % (90-100); ABG PCO2 23.4 mmhg (35.0-45.0); ABG PO2 82.7 mmhg (80-100); ABG TCO2 8.3 mmhg (23-27)
[2024-03-05 15:18] LABS: Oxygen ROOM AIR %; Source A LINE
[2024-03-05 15:21] LABS: ABG PH 7.13 mmol/L (7.35-7.45)
--- NOTE | 2024-03-05 15:47 | PC.NURSE ---
TANIA Mustafa, speaking with [facility] for possible transfer
[2024-03-05] MEDS: SODIUM BICARBONATE 150 MEQ in DEXTROSE 5 % IN WATER 1,000 ML 100 MEQ IV (15:50)
[2024-03-05 16:13] LABS: Troponin I < 0.01 ng/ml (0.00-0.034)
--- NOTE | 2024-03-05 16:41 | PC.NURSE ---
CALLED [facility] FOR UPDATE ON [employer] DEVELOPER BACK FROM NEPHROLOGY BUT STILL NO ANSWER AND COORDINATOR HAS BEEN CALLED ABOUT IT STATES A CALL SHOULD BE RETURNED SOON UNLESS MD IS IN A PROCEDURE
--- NOTE | 2024-03-05 17:53 | PC.NURSE ---
[place] [facility] declined due to weather in [facility]
--- NOTE | 2024-03-05 17:58 | PC.NURSE ---
Call out to [employer] for weather check. Awaiting call back
--- NOTE | 2024-03-05 18:05 | PC.NURSE ---
[employer] declined due to snow showers. and Johnie Tejeda RN aware.
--- NOTE | 2024-03-05 18:12 | PC.NURSE ---
report given to [facility]
--- NOTE | 2024-03-05 18:30 | PC.NURSE ---
[employer] declined flight also due to weather. I spoke with Favio with [employer] who stated to call back in 1-2 hours to do another weather re-check. [facility] and REGULO Beauchamp with [facility] who reports she will pass this message along to the [facility] supervisor. [employer] phone:
[2024-03-05] MEDS: HYDROCORTISONE SOD SUCCINATE 100MG VIAL 100 MG IV (19:27)
--- NOTE | 2024-03-05 19:56 | PC.NURSE ---
[facility] declined for weather, going to attempt to call [facility]
[2024-03-05 19:57] LABS: Troponin I < 0.01 ng/ml (0.00-0.034)
--- NOTE | 2024-03-05 20:03 | PC.NURSE ---
Spoke with [facility], awaiting a call back at this time from [place] [id number]
--- NOTE | 2024-03-06 00:28 | PC.NURSE ---
Signal Intelligence Analyst rode with patient in ambulance to . #20 RAC #20 LUE ART line in left wrist. All BPs documented below obtained via ART line. 1947- BP 124/46, HR 102 97%RA, 18, 98.4-oral temp. VS prior to leaving hospital and loading into ambulance. 2031-Glucose 246. 2037-BP 139/61, HR 101, AA08-lubcek in ambulance and about to leave facility. 2044-New bag of levophed hung. Levophed 8mg mixed in 250mL of 0.9%NS. 2046-She denies any pain. BP 156/65-levophed weanted to 24mcg/min, HR 104, RR21, 98%RA. 2052-BP 153/66, HR 101, RR21, 95%RA. 2099-BP 142/68, HR 109, RR 20, 99%RA. Levophed weaned to 20mcg/min. 2111-BP 128/76, HR 112, RR 21, 99%RA 2120-154/69, HR 97, RR 22, 98%RA. 2127- BP 132/64, HR 95, RR 22, 99%RA. 2131-144/65, RR 20, HR 102, 97%RA. Levophed weaned to 16mcg/min. 2137- BP 143/64, HR 89, RR21, 98%RA. Levophed weaned to 14mcg/min. 2143-BP 135/67, HR 97, RR 19, 98%RA. She denies any complaints or any needs at this time. 2144-BP 138/65, HR 92, RR 20, 99%RA. Levophed weaned to 12mcg/min. 2156-BP 136/66, HR 104, RR 23, 99%RA. 2199-Arrived at .
== END 2024-03-05 20:35 | disposition short-term general hospital (02) ==
PROVIDERS: Emergency Medicine; Physician Assistant; Emergency Provider Emergency Medicine; PCP Nurse Practitioner Family
DX: R57.9 Shock, unspecified (principal); T68.XXXA Hypothermia, initial encounter; N17.9 Acute kidney failure, unspecified; R53.1 Weakness; R26.2 Difficulty in walking, not elsewhere classified; R11.10 Vomiting, unspecified; R63.8 Other symptoms and signs concerning food and fluid intake; R68.83 Chills (without fever)
CPT/HCPCS: 71250; 74176; 80053; 81001; 82803; 83735; 83880; 84145; 84484; 85025; 85610; 86803; 87040; 87086; 87389; 87633; 93005; 96361; 96365; 99291; 99292; J2543; J7060; J7120

== ENCOUNTER 2024-03-15 09:47 | Inpatient (IN) | payer MEDICARE, MEDICAID, SELFPAY ==
[2024-03-15] VITALS (15 sets, daily range): BP systolic 105–140; BP diastolic 58–110; PULSE 63–142; RESP 14–26; TEMP 36.4–36.8; O2SAT 94–100; BMI 25.9; BMI 26.2
--- NOTE | 2024-03-15 09:57 | ECG_ITS ---
APPROVED REPORT Exam: Resting ECG HR:124 bpm ECG Measurements Heart Rate 124 AXES QRSd 106 QRS 69 QT 339 T 60 QTc 412 Conclusion A-fib with RVR Low voltage QRS Electronically signed by : ERICKSON RAUSCH, 03/16/2024 13:18:19
[2024-03-15 10:11] LABS: Lactate Venous 1.2 mmol/L (0.4-2.0); VBG Base Excess -9.9 mmol/L (-2.4-2.3); VBG HCO3 16.4 mmol/L (23-30); VBG Oxygen Saturation 87.2 % (50-70); VBG PCO2 33.3 mmol/L (35-51); VBG PH 7.31 mmol/L (7.31-7.41); VBG PO2 56.4 mmol/L (28-40); VBG Total CO2 17.4 mmol/L (23-27)
--- NOTE | 2024-03-15 10:17 | XR_ITS ---
PROCEDURE INFORMATION: Exam: XR Chest Exam date and time: 03/15/2024 10:41 AM Age: 63 years old Clinical indication: Cough; Additional info: SOA, cough TECHNIQUE: Imaging protocol: Radiologic exam of the chest. Views: 1 view. Total images: 1 COMPARISON: CT CHEST WO CON 03/05/2024 1:12 PM FINDINGS: Tubes, catheters and devices: AICD projects in satisfactory location. Lungs: Patchy airspace opacity noted within the right upper lobe with central lucency. Findings may be consistent with pneumonia, however abscess cannot be excluded. Further evaluation with CT scan of the chest is recommended. Pleural spaces: Right pleural effusion. No evidence of left pleural effusion. No evidence of pneumothorax. Heart/Mediastinum: Left atrial clip is noted. Diaphragm: There is nonspecific elevation of the right hemidiaphragm. Bones/joints: There is evidence of prior median sternotomy. The thoracic spine demonstrates mild degenerative changes at multiple levels. IMPRESSION: 1. Patchy airspace opacity noted within the right upper lobe with central lucency. Findings may be consistent with pneumonia, however abscess cannot be excluded. Further evaluation with CT scan of the chest is recommended. 2. Right pleural effusion.
--- NOTE | 2024-03-15 10:22 | ED_ITS ---
Discharge Plan Disposition Patient Disposition: Home, Self-Care Chief Complaint: Shortness of Breath/Dyspnea Prescriptions Prescriptions: No Action Entresto 24-26 mg tablet 1 tab PO BID Qty: 60 2RF ropinirole 1 mg tablet 1 mg PO DAILY Vraylar 1.5 mg capsule 1.5 mg PO DAILY dapagliflozin propanediol [Farxiga] 10 mg tablet 10 mg PO DAILY Qty: 30 2RF amiodarone 200 mg tablet 200 mg PO BID Qty: 60 5RF trazodone 50 mg tablet 50 mg PO HS alprazolam 0.5 mg tablet 0.5 mg PO BIDP PRN (Reason: Anxiety) citalopram 20 mg tablet 20 mg PO DAILY Novolin 70/30 U-100 Insulin 100 unit/mL (70-30) suspension 6 unit SQ BID ergocalciferol (vitamin D2) 1,250 mcg (50,000 unit) Capsule 1,250 mcg PO WEEKLY cholecalciferol (vitamin D3) 25 mcg (1,000 unit) Tablet 25 mcg PO DAILY insulin glargine [Lantus Solostar U-100 Insulin] 100 unit/mL (3 mL) insulin pen 8 unit SQ HS furosemide [Lasix] 40 mg tablet 40 mg PO DAILY Qty: 30 0RF atorvastatin 40 mg Tablet 40 mg PO HS 30 Days Qty: 30 0RF clopidogrel 75 mg tablet 75 mg PO DAILY 30 Days Qty: 30 0RF Patient Comments: TAKE ONE TABLET BY MOUTH ONCE A DAY aspirin 81 mg Tablet,Delayed Release (Dr/Ec) 81 mg PO DAILY 30 Days Qty: 30 0RF levofloxacin 750 mg tablet 750 mg PO Q48H 5 Days Qty: 3 0RF Rx Instructions: first dose 02/21/24 Referrals Follow up/Referrals: Ivonne Jones APRN [Primary Care Provider] - See instructions Clinical Impressions Clinical Impression: CHF exacerbation, Pneumonia, Atrial fibrillation with rapid ventricular response Print Language Print Language: Serbian Discharge ED Provider: Kar Payne General Chief Complaint: Shortness of Breath/Dyspnea Stated Complaint: SOA Time Seen by Provider: 03/15/24 09:54 Mode of Arrival: Wheelchair Source of Information: Patient and Relative Limitations: No Limitations Description of Symptoms (Recalled from ER Triage Doc. by RN): pt states, I can't breathe or catch my breathe. pt c/o SOA and a productive cough. pt states she has been SOA forever but it has been worse the last few months. History of Present Illness HPI narrative: Please note that above description of symptoms, in this electronic medical record under categorization of recalled from ER triage doctor by RN are reflective of an initial nursing assessment, however, is not reflective of my full history and physical exam that was personally taken and clarified. Consequentially, this preceding description of symptoms, which may include the patient's categorized chief complaint in the EMR, do not reflect my personal clinical impression, and the ultimate description of history of present illness and patient stated complaints should be deferred to this section of the note. Unless stated otherwise or congruent with this section of the note, additional signs, symptoms, or incongruence should be interpreted as inaccurate with my clinical impression. Related Data Home Medications ?Medication ?Instructions ?Recorded ?Confirmed alprazolam 0.5 mg tablet 0.5 mg PO BIDP PRN Anxiety 12/12/23 03/15/24 cholecalciferol (vitamin D3) 25 25 mcg PO DAILY 12/12/23 03/15/24 mcg (1,000 unit) tablet citalopram 20 mg tablet 20 mg PO DAILY 12/12/23 03/15/24 ergocalciferol (vitamin D2) 1,250 1,250 mcg PO WEEKLY 12/12/23 03/15/24 mcg (50,000 unit) capsule insulin glargine 100 unit/mL (3 8 unit SQ HS 12/12/23 03/15/24 mL) subcutaneous pen (Lantus Solostar U-100 Insulin) insulin human U-100 NPH-regulr 6 unit SQ BID 12/12/23 03/15/24 70-30 mix 100 unit/mL subcutaneous susp (Novolin 70/30 U-100 Insulin) trazodone 50 mg tablet 50 mg PO HS 12/12/23 03/15/24 cariprazine 1.5 mg capsule 1.5 mg PO DAILY 01/23/24 03/15/24 (Vraylar) ropinirole 1 mg tablet 1 mg PO DAILY 01/23/24 03/15/24 Previous Rx's ?Medication ?Instructions ?Recorded aspirin 81 mg tablet,delayed 81 mg PO DAILY 30 days #30 tabs 12/14/23 release atorvastatin 40 mg tablet 40 mg PO HS 30 days #30 tabs 12/14/23 clopidogrel 75 mg tablet 75 mg PO DAILY 30 days #30 tabs 12/14/23 furosemide 40 mg tablet (Lasix) 40 mg PO DAILY #30 tabs 12/14/23 sacubitril 24 mg-valsartan 26 mg 1 tab PO BID #60 tabs 12/23/23 tablet (Entresto) dapagliflozin propanediol 10 mg 10 mg PO DAILY #30 tabs 01/23/24 tablet (Farxiga) levofloxacin 750 mg tablet 750 mg PO Q48H 5 days #3 tabs 02/20/24 amiodarone 200 mg tablet 200 mg PO BID #60 tabs 02/24/24 Allergies Allergy/AdvReac Type Severity Reaction Status Date / Time No Known Allergies Allergy Verified 03/15/24 10:28 [facility] Disclaimer: The information contained in this section may have been updated after the patient was seen, as this information can be updated by other users. Medical History (Updated 03/15/24 @ 13:54 by Kar Payne MD) Coronary artery disease Pacemaker at end of battery life Right kidney mass Pancreatic mass Vomiting Dental abscess Pain, dental Hematuria Complication of urostomy Nausea vomiting and diarrhea Hypotension Generalized weakness Hypovolemia E. coli UTI (urinary tract infection) Infection due to extended-spectrum [id number] Klebsiella pneumoniae Yeast infection of the vagina Complicated UTI (urinary tract infection) STACY (acute kidney injury) Septic shock Severe sepsis with acute organ dysfunction Cellulitis Candidiasis Abdominal pannus Nausea & vomiting Presence of urostomy Presence of urostomy Vitamin D deficiency Biventricular cardiac pacemaker in situ Bacterial endocarditis Cardiac arrhythmia Bacteria present Obesity (BMI 30.0-34.9) Gastroenteritis due to norovirus Decreased blood volume Sepsis due to Streptococcus agalactiae Bacteremia Ileostomy in place Pacemaker Bladder cancer Diarrhea Fever UTI (urinary tract infection) Dehydration Diabetes mellitus Renal insufficiency Abscess of skin or subcutaneous tissue Renal insufficiency Valvular heart disease Palpitations Myocardial infarction HTN (hypertension), benign T2DM (type 2 diabetes mellitus) Depression CHF (congestive heart failure) Cancer Arrhythmia Anxiety Encounter for pre-operative cardiovascular clearance PAD (peripheral artery disease) Abnormal ankle brachial index (GOMEZ) PVD (peripheral vascular disease) HHD (hypertensive heart disease) Smoker HLD (hyperlipidemia) Carotid bruit Carotid artery stenosis CAD (coronary artery disease) Surgical History Hx of tonsillectomy History of mitral valve replacement S/P left atrial appendage ligation AICD (automatic cardioverter/defibrillator) present H/O tricuspid valve replacement History of coronary artery bypass graft Family History Other Cancer Diabetes Heart attack Social History Smoking Status: Current every day smoker tobacco type: cigarettes packs per day: 1 second hand exposure: Yes alcohol intake: never substance use type: marijuana current occupational status: unemployed Travel in the last 8 weeks: None household members: family housing: house number of children: 2 current occupational exposures/hazards: No caffeine: Yes Have you lived/traveled outside [place] in past 30 days?: No Contact w/someone who lives/traveled outside US past 30 days?: No Exposure to someone with infectious disease in past 14 days?: No Do you have a fever (greater than 100.4 F or 38 C)?: No Have you tested positive for COVID-19: No Exposed to someone with COVID-19 in past 14 days?: No Do you have a sore throat?: No Do you have a cough?: No Do you have any weakness?: No Do you have any diarrhea?: No Are you experiencing any unusual bleeding?: No Do you have any muscle aches/pain?: No Do you have any abdominal pain?: No Are you experiencing loss of taste or smell?: No Other Medical History Have you received the Flu Vaccine for this season: No Have you received the Pneumonia Vaccine: No ROS Obtained: Yes All systems reviewed & no additional complaints except as documented Physical Exam General General appearance: alert Neck Neck exam: Present trachea midline Chest Chest inspection: Present normal inspection and symmetric chest wall rise Respiratory Respiratory exam: Present normal lung sounds bilaterally; Absent respiratory distress, wheezes, stridor, accessory muscle use or prolonged expiratory phase Cardiovascular Cardiovascular exam: Present regular rate, normal rhythm and other (Pulses equal and symmetric in upper and lower extremities) Extremities Exam Extremities exam: Absent edema Neurological Exam Neurological exam: Present alert, oriented X3 and CN II-XII intact Skin Skin exam: Present warm and dry; Absent cyanosis, diaphoresis or pallor HEART Score HEART Score HEART Score assessment performed?: Yes HEART Score: 3 Critical Care Critical Care Time Critical Care Time: Yes (cardiac, respiratory) Attestation: On 03/15/24, the high probability of a clinically significant, sudden or life threatening deterioration of the following system(s) required my full and direct attention, intervention and personal management. The time I documented below is in addition to time spent performing reported procedures but includes the following listed in this critical care notation. Total Time Total Critical Care Time: 35 Medical Decision Making Medical Records Medical records reviewed: Yes I reviewed the patient's medical records. Amador Inquiry Pt receiving controlled substance: No Amador was queried for this patient: No Vital Signs Vital Signs: 03/15/24 09:52 03/15/24 10:00 03/15/24 10:11 Temperature 97.8 F Temperature Source Oral Pulse Rate 95 H 102 H Pulse Rate [Left] 119 H Respiratory Rate 22 24 Blood Pressure 120/69 112/75 Blood Pressure [Right Arm] 120/69 Blood Pressure Mean [Right Arm] 86 Blood Pressure Source [Right Arm] Automatic Cuff Blood Pressure Position [Right Arm] Sitting 02 Sat by Pulse Oximetry 98 96 97 Oxygen Delivery Method Room Air Room Air Room Air 03/15/24 10:30 03/15/24 11:00 03/15/24 11:30 Temperature Temperature Source Pulse Rate 108 H 131 H Pulse Rate [Left] Respiratory Rate 26 H 25 H 23 Blood Pressure 125/76 140/110 H 123/71 Blood Pressure [Right Arm] Blood Pressure Mean [Right Arm] Blood Pressure Source [Right Arm] Blood Pressure Position [Right Arm] 02 Sat by Pulse Oximetry 94 L 100 96 Oxygen Delivery Method Room Air Room Air Room Air 03/15/24 11:45 03/15/24 12:00 03/15/24 12:30 Temperature Temperature Source Pulse Rate 142 H 117 H 137 H Pulse Rate [Left] Respiratory Rate 21 22 20 Blood Pressure 105/66 L 107/67 L Blood Pressure [Right Arm] Blood Pressure Mean [Right Arm] Blood Pressure Source [Right Arm] Blood Pressure Position [Right Arm] 02 Sat by Pulse Oximetry 95 95 96 Oxygen Delivery Method Room Air Lab Data Labs: Lab Results 03/15/24 10:00: WBC 9.8, RBC 2.99 L, Hgb 8.5 L, Hct 28.4 L, MCV 95.0, MCH 28.4, MCHC 29.9 L, RDW 18.9 H, Plt Count 379, MPV 11.4 H, Neut % (Auto) 68.4, Lymph % (Auto) 20.0, [place] % (Auto) 5.7, Eos % (Auto) 4.4, Baso % (Auto) 0.8, Neut # (Auto) 6.7, Lymph # (Auto) 2.0, [place] # (Auto) 0.6, Eos # (Auto) 0.4, Baso # (Auto) 0.1, PT 10.2, INR 0.92, APTT 24.5, D-Dimer 1.19 H, Sodium 142, Potassium 4.3, Chloride 112 H, Carbon Dioxide 21 L, Anion Gap 13.3, BUN 46 H, Creatinine 2.00 H, Estimated Creat Clear 29, Estimated GFR 25 L, Est GFR ( Amer) 31 L, Glucose 166 H, Calcium 8.9, Magnesium 1.9, Total Bilirubin 0.2, AST 28, ALT 20, Alkaline Phosphatase 102, Troponin I 0.02, NT-Pro-B Natriuret Pep 3670 H, Total Protein 6.6, Albumin 3.8, Globulin 2.8, Albumin/Globulin Ratio 1.4, Procalcitonin 0.087 03/15/24 10:05: VBG pH 7.31, VBG pCO2 33.3 L, VBG pO2 56.4 H, VBG HCO3 16.4 L, V BG Total CO2 17.4 L, VBG O2 Saturation 87.2 H, VBG Base Excess -9.9 L, VBG Lactic Acid 1.2 03/15/24 10:00 03/15/24 10:00 Response Orders (Tests/Meds): ED MEDICATIONS Generic Name Dose Route Start Last Admin Trade Name Freq PRN Reason Stop Dose Admin Miscellaneous 1 each 03/15/24 14:00 Vancomycin Consult Request NOTAPPLIC 04/14/24 13:59 [facility] Sodium Chloride 10 ml 03/15/24 13:27 03/15/24 13:28 Sodium Chloride 0.9% 10ml Syr (Rad Only) IV 04/14/24 13:26 10 ml NEEDED PRN Administration Maintain IV Site Discontinued Medications Generic Name Dose Route Start Last Admin Trade Name Freq PRN Reason Stop Dose Admin Albuterol/Ipratropium 9 ml 03/15/24 10:17 03/15/24 10:37 Ipratropium/Albuterol 3 Ml Neb IH 03/15/24 10:18 9 ml ONCE ONE Administration Aspirin 324 mg 03/15/24 10:17 03/15/24 10:37 Aspirin 81mg Chewable Tablet PO 03/15/24 10:18 324 mg ONCE ONE Administration Furosemide 40 mg 03/15/24 12:07 03/15/24 12:11 Furosemide 40mg/4ml Vial IV 03/15/24 12:08 40 mg ONCE ONE Administration Cefepime HCl 2 gm/ Sodium 100 mls @ 200 mls/hr 03/15/24 10:21 03/15/24 10:37 Chloride IV 03/15/24 10:50 200 mls/hr ONCE ONE Administration Iopamidol 70 ml 03/15/24 13:27 03/15/24 13:28 Iopamidol-370 (76%);100ml Bottle IV 03/15/24 13:28 70 ml ONCE ONE Administration Methylprednisolone Sodium Succinate 125 mg 03/15/24 10:17 03/15/24 10:36 Methylprednisolone Sod Succ 125mg Vial IV 03/15/24 10:18 125 mg ONCE ONE Administration Sodium Chloride 50 ml 03/15/24 13:27 03/15/24 13:28 0.9 % Sodium Chloride 50 Ml Vial IV 03/15/24 13:28 50 ml ONCE ONE Administration ORDERS Category Date Time Status CT angio chest PE protocol Stat Cat Scan 03/15/24 11:44 Taken POCUS Point of Care (ER Only) Stat Exams 03/15/24 10:23 Completed XR chest portable Stat Exams 03/15/24 10:17 Completed Complete Blood Count Auto Diff Stat Lab 03/15/24 10:00 Completed Comprehensive Metabolic Panel Stat Lab 03/15/24 10:00 Completed D-Dimer Stat Lab 03/15/24 10:00 Completed Magnesium Stat Lab 03/15/24 10:00 Completed NT Pro Brain Natriuretic Pep. Stat Lab 03/15/24 10:00 Completed PT INR [Prothrombin Time INR] Stat Lab 03/15/24 10:00 Completed PTT [Activated Partial Thrombo Time] Stat Lab 03/15/24 10:00 Completed Procalcitonin Stat Lab 03/15/24 10:00 Completed Troponin I Q3H Lab 03/15/24 13:30 Ordered Troponin I Q3H Lab 03/15/24 16:30 Ordered Troponin I Stat Lab 03/15/24 10:00 Completed Blood Culture Stat Micro 03/15/24 10:37 Received Venous Blood Gas Routine RT 03/15/24 10:05 Completed Venous Blood Gas Stat RT 03/15/24 10:23 Ordered MDM Narrative Medical Decision Narrative: 63-year-old female history of hypertension, hyperlipidemia, CAD, cardiomyopathy, atrial fibrillation on aspirin with pacemaker defibrillator in place, CKD, COPD still smoking, bladder cancer status post cystectomy presenting with difficulty breathing. She states that she has felt difficulty breathing since being discharged from [facility] 7 days prior to this. Cough is nonproductive, no fevers or chills, chest pain, etc.. It should be noted the patient does have CHF that is not at goal care. Has been taken on and off of diuretic medications multiple times in the recent past. History was obtained via conversation with patient and family. On arrival, patient hemodynamically stable, alert, oriented x4, appropriate, GCS 15, moving all extremities spontaneously, pupils equal and reactive to light. Full physical exam performed and significant for chronically ill-appearing female no acute distress. Diffuse bilateral wheezing on expiration. Quiet breath sounds in lower lung priest. No lower extremity edema. Abdomen soft, nontender, nondistended. Patient is tachypneic and tachycardic. Differential includes COPD, pneumonia, CHF, PE, pneumothorax, sepsis, among others. Patient was given DuoNebs, Solu-Medrol, for symptomatic management and correction of underlying abnormalities. Patient placed on continuous cardiac monitoring and continuous pulse ox with initial blood pressure 120/69, heart rate 95, saturation 98% on room air. Independent interpretation of EKG shows A-fib RVR 124 bpm with low voltages. Ventricular rate 124, QRS 106 ms, QTc 412 ms. Normal axis. No acute ischemic change. Workup independently interpreted and significant for nonactionable CBC. Chemistry with stable CKD. Nonactionable chemistry otherwise. Patient's troponin mildly elevated 0.02, BNP elevated 3600. Chest x-ray with right-sided pleural effusion and pneumonia. On independent interpretation of CT scan she has pneumonia and pleural effusions. On reevaluation, patient states she is not feeling much better after nebs, I feel she would likely be more responsive to diuresis. 40 mg IV Lasix were administered. Sepsis fluid bolus was considered, but patient is clinically and radiologically volume overloaded, not deemed necessary at this time. Also given cefepime and vancomycin were administered due to numerous recent hospitalizations and concern for multidrug-resistant pneumonia. Because patient high risk for clinical decompensation, deemed appropriate for inpatient admission. Results were relayed to patient who voiced understanding and patient was agreeable to inpatient admission and management. Patient was admitted to the hospital for further definitive management. Furnace Process Supervisor disclaimer Much of this encounter note is an electronic distribution systems superintendent spoken language to printed text. Electronic distribution systems superintendent of the spoken language may permit errors. Although I have reviewed the note, some errors may still exist.
[2024-03-15 10:31] LABS: Basophils # 0.1 K/mm3 (0-0.2); Basophils % 0.8 % (0.1-2.0); Eosinophils # 0.4 K/mm3 (0.0-0.4); Eosinophils % 4.4 % (0.1-12.0); Hematocrit 28.4 % (37.0-47.0); Hemoglobin 8.5 g/dL (12.2-16.2); Mean Corpuscular HGB Conc 29.9 g/dL (31.8-35.4); Mean Corpuscular Hemoglobin 28.4 pg (27.0-31.2); Mean Platelet Volume 11.4 fl (7.4-10.4); Monocytes # 0.6 K/mm3 (0.1-1.0); Monocytes % 5.7 % (1.7-9.3); Neutrophils # 6.7 K/mm3 (1.8-7.8); Neutrophils % 68.4 % (37.0-80.0); Platelet Count 379 K/mm3 (142-424); Red Blood Count 2.99 M/mm3 (4.20-5.40); Red Cell Distribution Width 18.9 % (11.5-17.5); White Blood Count 9.8 K/mm3 (4.8-10.8)
[2024-03-15 10:36] LABS: Alanine Aminotransferase 20 U/L (12-78); Albumin Level 3.8 g/dl (3.5-5.0); Albumin/Globulin Ratio 1.4 (1.1-1.8); Alkaline Phosphatase 102 U/L (38-126); Anion Gap 13.3 mEq/L (5-15); Aspartate Amino Transferase 28 U/L (14-36); Bilirubin,Total 0.2 mg/dl (0.2-1.3); Blood Urea Nitrogen 46 mg/dl (7-17); Calcium 8.9 mg/dl (8.4-10.2); Carbon Dioxide 21 mmol/L (22.0-30.0); Chloride 112 mmol/L (98-107); Creatinine Clearance Estimated 29 mL/min (50-200); Estimated Glomerular Filt Rate 25 ml/min (>60); GFR (African American) 31 ML/MIN (>60); Globulin 2.8 g/dL (1.3-3.2); Glucose 166 mg/dl (74-100); Magnesium 1.9 mg/dl (1.6-2.3); Potassium 4.3 mmoL/L (3.5-5.1); Sodium 142 mmol/L (136-145); Total Protein,Serum 6.6 g/dl (6.3-8.2)
[2024-03-15] MEDS: METHYLPREDNISOLONE SOD SUCC 125MG VIAL 125 MG IV (10:36)
[2024-03-15] MEDS: CEFEPIME HCL 2 GM in 0.9 % SODIUM CHLORIDE 100 ML IV (10:37)
[2024-03-15] MEDS: IPRATROPIUM/ALBUTEROL 3 ML NEB 9 ML IH (10:37)
[2024-03-15] MEDS: ASPIRIN 81MG CHEWABLE TABLET 324 MG PO (10:37)
--- NOTE | 2024-03-15 10:40 | PC.NURSE ---
pt resting in bed no needs at this time call light in reach
--- NOTE | 2024-03-15 10:43 | PC.NURSE ---
Antibiotics started after both blood cultures were obtained.
[2024-03-15 10:49] LABS: Activated Partial Thrombo Time 24.5 seconds (22.5-28.5); INR 0.92 (0.9-1.1); Prothrombin Time 10.2 seconds (9.2-12.1)
[2024-03-15 10:50] LABS: NT Pro Brain Natriuretic Pep. 3670 pg/mL (0-125); Troponin I 0.02 ng/ml (0.00-0.034)
[2024-03-15 10:56] LABS: Procalcitonin 0.087 ng/mL (0.0-2.0)
[2024-03-15 11:26] LABS: D-Dimer 1.19 ug/mL (0.0-0.5)
--- NOTE | 2024-03-15 11:39 | PC.NURSE ---
rounded on patient. gave warm blanket
--- NOTE | 2024-03-15 11:44 | CT_ITS ---
PROCEDURE INFORMATION: Exam: CTA Chest With Contrast Exam date and time: 03/15/2024 1:24 PM Age: 63 years old Clinical indication: Shortness of breath; Additional info: Dimer, resp failure TECHNIQUE: Imaging protocol: Computed tomographic angiography of the chest with contrast. Exam focused on the arteries. 3D rendering (Not supervised by radiologist): MIP and/or 3D reconstructed images were created by the technologist. Total images: 779 Radiation optimization: All CT scans at this facility use at least one of these dose optimization techniques: automated exposure control; mA and/or kV adjustment per patient size (includes targeted exams where dose is matched to clinical indication); or iterative reconstruction. Contrast material: ISOVUE 370; Contrast volume: 70 ml; Contrast route: INTRAVENOUS (IV); COMPARISON: CT CHEST WO CON 03/05/2024 1:12 PM FINDINGS: Tubes, catheters and devices: AICD projects in satisfactory location. Pulmonary arteries: Filling defect is present within the subsegmental pulmonary artery to the left lower lobe consistent with pulmonary embolism. Aorta: Unremarkable. No aortic aneurysm. No aortic dissection. Other arteries: Moderate atherosclerotic disease. Lungs: Patchy airspace opacity consistent with pneumonia present within the right upper lobe. No definite abscess formation. Pleural spaces: Right pleural effusion. No evidence of left pleural effusion. No evidence of pneumothorax. Heart: No evidence of right heart strain. Left atrial clip is present. Lymph nodes: Unremarkable. No enlarged lymph nodes. Diaphragm: There is nonspecific elevation of the right hemidiaphragm. Spleen: Splenic calcifications are noted. Kidneys: Bilateral renal cysts are partially imaged. Bones/joints: The thoracic spine demonstrates mild degenerative changes at multiple levels. There is evidence of prior median sternotomy. Soft tissues: Unremarkable. IMPRESSION: 1. Filling defect is present within the subsegmental pulmonary artery to the left lower lobe consistent with pulmonary embolism. 2. Patchy airspace opacity consistent with pneumonia present within the right upper lobe. No definite abscess formation. 3. Right pleural effusion. 4. No evidence of right heart strain. COMMENTS: Consistent with the [place] [employer]'s Incidental Findings Committee white paper (J Am Richard Radiol 2018): Any incidental renal lesion less than 1 cm or classified as too small to characterize, or any incidental cystic renal lesion characterized as simple-appearing, is likely benign. No follow-up imaging is recommended for these lesions per consensus recommendations based on imaging criteria.
[2024-03-15] MEDS: FUROSEMIDE 40MG/4ML VIAL 40 MG IV (12:11)
--- NOTE | 2024-03-15 12:21 | ECG_ITS ---
APPROVED REPORT Exam: Resting ECG HR:142 bpm ECG Measurements Heart Rate 142 AXES QRSd 100 QRS 44 QT 324 T 0 QTc 406 Conclusion A-fib with RVR Low voltages ST depressions without reciprocal elevations Electronically signed by : ERICKSON RAUSCH, 03/16/2024 13:18:57
--- NOTE | 2024-03-15 12:59 | PC.NURSE ---
I notified [employer] that the pt has a new IV.
[2024-03-15] MEDS: 0.9 % SODIUM CHLORIDE 50 ML VIAL IV (13:28)
[2024-03-15] MEDS: SODIUM CHLORIDE 0.9% 10ML SYR (RAD ONLY) 10 ML IV (13:28)
[2024-03-15] MEDS: IOPAMIDOL-370 (76%);100ML BOTTLE 70 ML IV (13:28)
[2024-03-15] MEDS: VANCOMYCIN CONSULT REQUEST 1 EACH NOTAPPLIC (14:04)
--- NOTE | 2024-03-15 14:08 | PC.NURSE ---
passwork is Nell
--- NOTE | 2024-03-15 14:34 | HMH.PHAINT1 ---
Pharmacy Intervention Comments: MEDICATION RECONCILIATION COMPLETE USING LIST FROM RECENT HOSPITAL DISCHARGE NOTE, EXTERNAL PHARMACY FILL HISTORY, [facility] REPORT, AND CALLED ER TO ASK NURSE TO VERIFY INSULIN DOSE. PER LISSETH, PATIENT STATES SHE TAKES THE NOVOLIN 70/30 INSULIN, 6 UNITS TWICE DAILY.
--- NOTE | 2024-03-15 14:44 | PC.NURSE ---
report called to ernesto
[2024-03-15 14:52] LABS: Troponin I < 0.01 ng/ml (0.00-0.034)
[2024-03-15] MEDS: VANCOMYCIN HCL 1,000 MG in 0.9 % SODIUM CHLORIDE 250 ML 125 MG IV (14:56)
[2024-03-15] MEDS: ENOXAPARIN 100MG/ML SYRINGE 60 MG SUBCUT (15:45)
--- NOTE | 2024-03-15 15:53 | EXP.HP ---
History of Present Illness *Admission Date: 03/15/24 *Reason for visit:: Shortness of breath *History of present illness: Laxmi Cronin is a 63-year-old female with a medical history significant for CAD s/p 2 stents 12/13/2023, HFrEF 40%, CABG 2015, AICD, A-fib s/p maze and MILLY clip, bioprosthetic mitral valve replacement with chronic endocarditis on penicillin daily (used to follow with ID, lost to follow-up), CKD 3A, insulin-dependent diabetes, hypothyroidism who who presents with several week onset of progressive shortness of breath, nonproductive cough. Patient is not the best historian, unable to tell me when her shortness of breath began getting worse. She states she has baseline dyspnea on exertion. Denies fever/chills, chest pain, upper respiratory symptoms abdominal pain, urinary symptoms. She states that she has felt difficulty breathing since being discharged from [facility] 7 days for acute renal failure, though she does not remember what exactly they did for her there. Workup in the ED significant for heart rate 130, BNP 3670, and CTA revealing right upper lobe pneumonia with left lower lobe pulmonary embolism. On room air saturating appropriately. Given vancomycin, cefepime, Lasix 40 in the ED. Case discussed with ED provider and decision was made to admit patient for hospital-acquired pneumonia, pulmonary embolism. [facility] Disclaimer: The information contained in this section may have been updated after the patient was seen, as this information can be updated by other users. Medical History (Updated 03/15/24 @ 17:43 by Demetri Santoyo MD) Coronary artery disease Pacemaker at end of battery life Right kidney mass Pancreatic mass Vomiting Dental abscess Pain, dental Hematuria Complication of urostomy Nausea vomiting and diarrhea Hypotension Generalized weakness Hypovolemia E. coli UTI (urinary tract infection) Infection due to extended-spectrum [id number] Klebsiella pneumoniae Yeast infection of the vagina Complicated UTI (urinary tract infection) STACY (acute kidney injury) Septic shock Severe sepsis with acute organ dysfunction Cellulitis Candidiasis Abdominal pannus Nausea & vomiting Presence of urostomy Presence of urostomy Vitamin D deficiency Biventricular cardiac pacemaker in situ Bacterial endocarditis Cardiac arrhythmia Bacteria present Obesity (BMI 30.0-34.9) Gastroenteritis due to norovirus Decreased blood volume Sepsis due to Streptococcus agalactiae Bacteremia Ileostomy in place Pacemaker Bladder cancer Diarrhea Fever UTI (urinary tract infection) Dehydration Diabetes mellitus Renal insufficiency Abscess of skin or subcutaneous tissue Renal insufficiency Valvular heart disease Palpitations Myocardial infarction HTN (hypertension), benign T2DM (type 2 diabetes mellitus) Depression CHF (congestive heart failure) Cancer Arrhythmia Anxiety Encounter for pre-operative cardiovascular clearance PAD (peripheral artery disease) Abnormal ankle brachial index (GOMEZ) PVD (peripheral vascular disease) HHD (hypertensive heart disease) Smoker HLD (hyperlipidemia) Carotid bruit Carotid artery stenosis CAD (coronary artery disease) Surgical History Hx of tonsillectomy History of mitral valve replacement S/P left atrial appendage ligation AICD (automatic cardioverter/defibrillator) present H/O tricuspid valve replacement History of coronary artery bypass graft Family History Other Cancer Diabetes Heart attack Social History (Updated 03/15/24 @ 15:13 by Willa Gates RN) Smoking Status: Current every day smoker tobacco type: cigarettes packs per day: 1 second hand exposure: Yes alcohol intake: never substance use type: marijuana current occupational status: unemployed Travel in the last 8 weeks: None household members: family housing: house number of children: 2 current occupational exposures/hazards: No caffeine: Yes Have you lived/traveled outside [place] in past 30 days?: No Contact w/someone who lives/traveled outside US past 30 days?: No Exposure to someone with infectious disease in past 14 days?: No Do you have a fever (greater than 100.4 F or 38 C)?: No Have you tested positive for COVID-19: No Exposed to someone with COVID-19 in past 14 days?: No Do you have a sore throat?: No Do you have a cough?: No Do you have any weakness?: No Are you experiencing any nausea/vomitting?: No Do you have any diarrhea?: No Are you experiencing any unusual bleeding?: No Do you have any muscle aches/pain?: No Do you have any abdominal pain?: No Are you experiencing loss of taste or smell?: No Other Medical History Have you received the Flu Vaccine for this season: Yes Have you received the Pneumonia Vaccine: No Meds Home Medications and Allergies Home Medications ?Medication ?Instructions ?Recorded ?Confirmed ?Type alprazolam 0.5 mg tablet 0.5 mg PO BIDP PRN Anxiety 12/12/23 03/15/24 History cholecalciferol (vitamin D3) 25 25 mcg PO DAILY 12/12/23 03/15/24 History mcg (1,000 unit) tablet citalopram 20 mg tablet 20 mg PO HS 12/12/23 03/15/24 History insulin glargine 100 unit/mL (3 8 unit SQ HS 12/12/23 03/15/24 History mL) subcutaneous pen (Lantus Solostar U-100 Insulin) insulin human U-100 NPH-regulr 6 unit SQ BID 12/12/23 03/15/24 History 70-30 mix 100 unit/mL subcutaneous susp (Novolin 70/30 U-100 Insulin) trazodone 50 mg tablet 50 mg PO HS 12/12/23 03/15/24 History aspirin 81 mg tablet,delayed 81 mg PO DAILY 30 days #30 tabs 12/14/23 03/15/24 Rx release atorvastatin 40 mg tablet 40 mg PO HS 30 days #30 tabs 12/14/23 03/15/24 Rx clopidogrel 75 mg tablet 75 mg PO DAILY 30 days #30 tabs 12/14/23 03/15/24 Rx cariprazine 1.5 mg capsule 1.5 mg PO DAILY 01/23/24 03/15/24 History (Vraylar) dapagliflozin propanediol 10 mg 10 mg PO DAILY #30 tabs 01/23/24 03/15/24 Rx tablet (Farxiga) ropinirole 1 mg tablet 1 mg PO DAILY 01/23/24 03/15/24 History amiodarone 200 mg tablet 200 mg PO DAILY 03/15/24 03/15/24 History penicillin V potassium 250 mg 250 mg PO BID 03/15/24 03/15/24 History tablet New Prescriptions to Start Prescriptions: Allergies Allergy/AdvReac Type Severity Reaction Status Date / Time No Known Allergies Allergy Verified 03/15/24 10:28 Exam Data for Last 24 hours Vital signs and Labs for Last 24 Hours: Temp Pulse Resp BP Pulse Ox O2 Del Method 97.5 F L 130 H 18 126/67 99 Room Air 03/15/24 15:03/15/24 15:03/15/24 15:03/15/24 15:03/15/24 15:00 03/15/24 15:00 Laboratory Results - last 24 hr 03/15/24 10:00: WBC 9.8, RBC 2.99 L, Hgb 8.5 L, Hct 28.4 L, MCV 95.0, MCH 28.4, MCHC 29.9 L, RDW 18.9 H, Plt Count 379, MPV 11.4 H, Neut % (Auto) 68.4, Lymph % (Auto) 20.0, [place] % (Auto) 5.7, Eos % (Auto) 4.4, Baso % (Auto) 0.8, Neut # (Auto) 6.7, Lymph # (Auto) 2.0, [place] # (Auto) 0.6, Eos # (Auto) 0.4, Baso # (Auto) 0.1, PT 10.2, INR 0.92, APTT 24.5, D-Dimer 1.19 H, Sodium 142, Potassium 4.3, Chloride 112 H, Carbon Dioxide 21 L, Anion Gap 13.3, BUN 46 H, Creatinine 2.00 H, Estimated Creat Clear 29, Estimated GFR 25 L, Est GFR ( Amer) 31 L, Glucose 166 H, Calcium 8.9, Magnesium 1.9, Total Bilirubin 0.2, AST 28, ALT 20, Alkaline Phosphatase 102, Troponin I 0.02, NT-Pro-B Natriuret Pep 3670 H, Total Protein 6.6, Albumin 3.8, Globulin 2.8, Albumin/Globulin Ratio 1.4, Procalcitonin 0.087 03/15/24 10:05: VBG pH 7.31, VBG pCO2 33.3 L, VBG pO2 56.4 H, VBG HCO3 16.4 L, VBG Total CO2 17.4 L, VBG O2 Saturation 87.2 H, VBG Base Excess -9.9 L, VBG Lactic Acid 1.2 03/15/24 14:07: Troponin I < 0.01 I & O for Last 24 hours: Intake & Output 03/12/24 03/13/24 03/14/24 03/15/24 23:59 23:59 23:59 23:59 Output Total 425 / 425 Balance -425 / -425 Weight 63.14 kg Constitutional Constitutional: no acute distress *Routine HEENT Exam Head: Present normocephalic Eye: Present EOMI and PERRL ENT: Present mucous membranes moist *Routine Neck Exam Neck: Present supple; Absent lymphadenopathy *Routine Respiratory Exam Respiratory: Present CTA bilaterally *Routine Cardiovascular Exam Cardiovascular: Present RRR *Routine Abdominal Exam Abdominal: Present soft and normoactive bowel sounds; Absent tenderness Comments: Urostomy viable without infections. *Routine Rectal Exam Rectal:: deferred *Routine Genitalia Exam Genitalia:: deferred *Routine Extremities Exam Extremities: Absent cyanosis, clubbing or edema *Routine Skin Exam Skin: Present warm; Absent rash *Routine Neurological Exam Neurological: Present alert and oriented X3 Assessment and Plan *Assessment and plan (1) Pneumonia: Status: Acute Category: Medical Code(s): J18.9 - Pneumonia, unspecified organism (2) Pulmonary embolism: Status: Acute Category: Medical Code(s): I26.99 - Other pulmonary embolism without acute cor pulmonale Plan Laxmi Cronin is a 63-year-old female with a medical history significant for CAD s/p 2 stents 12/13/2023, HFrEF 40%, CABG 2015, AICD, A-fib s/p maze and MILLY clip, bioprosthetic mitral valve replacement with chronic endocarditis on penicillin daily (used to follow with ID, lost to follow-up), CKD 3A, insulin-dependent diabetes, hypothyroidism who who presents with several week onset of progressive shortness of breath, nonproductive cough. Patient is not the best historian, unable to tell me when her shortness of breath began getting worse. She states she has baseline dyspnea on exertion. Denies fever/chills, chest pain, upper respiratory symptoms abdominal pain, urinary symptoms. She states that she has felt difficulty breathing since being discharged from [facility] 7 days for acute renal failure, though she does not remember what exactly they did for her there. Workup in the ED significant for heart rate 130, BNP 3670, and CTA revealing right upper lobe pneumonia with left lower lobe pulmonary embolism. On room air saturating appropriately. Given vancomycin, cefepime, Lasix 40 in the ED. Case discussed with ED provider and decision was made to admit patient for hospital-acquired pneumonia, pulmonary embolism. #Suspected hospital-acquired pneumonia #Right pleural effusion ? Discharged from [facility] about 7 days ago for acute renal failure, fecal disimpaction. ? Progressive shortness of breath since then, CTA revealed right upper lobe pneumonia with left lower lobe pulmonary embolism. ? Tachycardia up to 130, no leukocytosis, on room air saturating appropriately. Seems comfortable. ? IV vancomycin, cefepime day 02/17 pending cultures. ? Follow-up sputum, blood cultures. Follow-up MRSA nares screen. ? Pulmonology consulted, pending further recommendations #Pulmonary embolism, left lower lobe ? CTA revealed LLL PE. Tachycardic up to 130, on room air. Seems comfortable. ? Therapeutic Lovenox pending ECHO results to evaluate for RV strain. If negative and will need thrombectomy, transition to NOAC. #CAD s/p 2 stents #A-fib s/p maze and MILLY clip #Bioprosthetic mitral valve replacement with chronic endocarditis #CABG 2015 ? Aspirin 81 mg, Plavix 75 mg, atorvastatin 40 mg. ? Amiodarone 400 mg daily. Patient is supposed to be on penicillin daily for chronic endocarditis. ? Follow-up blood cultures in the setting of chronic endocarditis. #HFrEF ? No signs of volume overload. Resume GDMT once reconciled. #Hypothyroidism ? Does not seem to be on levothyroxine for some reason. Follow-up TFTs. #Type 2 diabetes ? Hemoglobin A1c 6.8 in early February 2024. ? LDSSI, ACHS glucose checks. #CKD stage III ? Stable. Continue monitor Full code DVT prophylaxis: Therapeutic Lovenox as above
[2024-03-15] MEDS: CEFEPIME HCL 1 GM in 0.9 % SODIUM CHLORIDE 50 ML IV (19:21)
[2024-03-15 20:42] LABS: Troponin I < 0.01 ng/ml (0.00-0.034)
[2024-03-15] MEDS: TRAZODONE 50MG TABLET 50 MG PO (21:31)
[2024-03-15] MEDS: INSULIN GLARGINE 100 UNITS/ML 3ML FLEXPEN 8 UNIT SUBCUT (21:31)
[2024-03-15] MEDS: humaLOG 100 UNITS/ML 10ML VIAL (SSI) SUBCUT (21:31)
[2024-03-15] MEDS: CITALOPRAM 20MG TABLET 20 MG PO (21:31)
[2024-03-15] MEDS: ATORVASTATIN 40MG TABLET 40 MG PO (21:31)
[2024-03-15 21:45] LABS: POC Glucose,Bedside 393 (70-110)
[2024-03-16] VITALS: PULSE 110
[2024-03-16] MEDS: ENOXAPARIN 100MG/ML SYRINGE 60 MG SUBCUT (03:33)
[2024-03-16 04:00] VITALS: PULSE 100; BMI 26.5
[2024-03-16] MEDS: CEFEPIME HCL 1 GM in 0.9 % SODIUM CHLORIDE 50 ML IV ×2 (06:33→19:41)
[2024-03-16] MEDS: humaLOG 100 UNITS/ML 10ML VIAL (SSI) SUBCUT ×3 (06:33→21:33)
--- NOTE | 2024-03-16 06:50 | PC.NURSE ---
Pt A&OX4 and has tolerated room air. Lung sounds clear and bowel sounds active. Pt voiding per urostomy with good output. She has remained paced on tele. Receiving IV antibiotics. Curently sitting up in bed with call light within reach.
[2024-03-16 06:51] LABS: POC Glucose,Bedside 234 (70-110)
[2024-03-16 07:07] LABS: Basophils % 0.2 % (0.1-2.0); Lymphocytes # 0.7 K/mm3 (0.7-4.5); Lymphocytes % 6.9 % (10-50); Mean Corpuscular HGB Conc 30.4 g/dL (31.8-35.4); Mean Corpuscular Hemoglobin 28.3 pg (27.0-31.2); Mean Platelet Volume 11.8 fl (7.4-10.4); Monocytes # 0.3 K/mm3 (0.1-1.0); Monocytes % 3.3 % (1.7-9.3); Neutrophils # 8.8 K/mm3 (1.8-7.8); Platelet Count 299 K/mm3 (142-424); Red Blood Count 2.58 M/mm3 (4.20-5.40); Red Cell Distribution Width 18.6 % (11.5-17.5); White Blood Count 9.9 K/mm3 (4.8-10.8)
[2024-03-16 07:24] LABS: Alanine Aminotransferase 18 U/L (12-78); Albumin Level 3.1 g/dl (3.5-5.0); Albumin/Globulin Ratio 1.2 (1.1-1.8); Alkaline Phosphatase 86 U/L (38-126); Anion Gap 13.5 mEq/L (5-15); Aspartate Amino Transferase 25 U/L (14-36); Bilirubin,Total 0.2 mg/dl (0.2-1.3); Blood Urea Nitrogen 46 mg/dl (7-17); Calcium 8.6 mg/dl (8.4-10.2); Carbon Dioxide 19 mmol/L (22.0-30.0); Chloride 107 mmol/L (98-107); Creatinine Clearance Estimated 30 mL/min (50-200); Estimated Glomerular Filt Rate 25 ml/min (>60); GFR (African American) 31 ML/MIN (>60); Globulin 2.5 g/dL (1.3-3.2); Glucose 184 mg/dl (74-100); Magnesium 1.8 mg/dl (1.6-2.3); Potassium 4.5 mmoL/L (3.5-5.1); Sodium 135 mmol/L (136-145); Total Protein,Serum 5.6 g/dl (6.3-8.2)
[2024-03-16 07:34] LABS: Hemoglobin 7.1 g/dL (12.2-16.2)
[2024-03-16 07:53] LABS: Thyroid Stimulating Hormone 2.79 uIU/mL (0.465-4.68)
[2024-03-16 08:00] VITALS: BP 99/53; PULSE 120; RESP 17; TEMP 36.6; O2SAT 100
[2024-03-16 08:06] LABS: Free T4 (Free Thyroxine) 1.61 ng/dl (0.78-2.19)
[2024-03-16] MEDS: ASPIRIN EC 81MG TABLET 81 MG PO (08:41)
[2024-03-16] MEDS: CLOPIDOGREL 75MG TAB 75 MG PO (08:41)
[2024-03-16] MEDS: ENOXAPARIN 40MG/0.4ML SYRINGE 40 MG SUBCUT (08:41)
[2024-03-16] MEDS: AMIODARONE 200MG TABLET 200 MG PO (09:43)
--- NOTE | 2024-03-16 10:43 | P.CONPHA_ITS ---
Pharmacy Consult Date: 03/16/24 Time: 10:44 Referring provider: DR TEE Reason for Consult:: VANCOMYCIN DOSING CONSULT Allergies Allergy/AdvReac Type Severity Reaction Status Date / Time No Known Allergies Allergy Verified 03/15/24 10:28 Home Medications ?Medication ?Instructions ?Recorded ?Confirmed ?Type alprazolam 0.5 mg tablet 0.5 mg PO BIDP PRN Anxiety 12/12/23 03/15/24 History cholecalciferol (vitamin D3) 25 25 mcg PO DAILY 12/12/23 03/15/24 History mcg (1,000 unit) tablet citalopram 20 mg tablet 20 mg PO HS 12/12/23 03/15/24 History insulin glargine 100 unit/mL (3 8 unit SQ HS 12/12/23 03/15/24 History mL) subcutaneous pen (Lantus Solostar U-100 Insulin) insulin human U-100 NPH-regulr 6 unit SQ BID 12/12/23 03/15/24 History 70-30 mix 100 unit/mL subcutaneous susp (Novolin 70/30 U-100 Insulin) trazodone 50 mg tablet 50 mg PO HS 12/12/23 03/15/24 History aspirin 81 mg tablet,delayed 81 mg PO DAILY 30 days #30 tabs 12/14/23 03/15/24 Rx release atorvastatin 40 mg tablet 40 mg PO HS 30 days #30 tabs 12/14/23 03/15/24 Rx clopidogrel 75 mg tablet 75 mg PO DAILY 30 days #30 tabs 12/14/23 03/15/24 Rx cariprazine 1.5 mg capsule 1.5 mg PO DAILY 01/23/24 03/15/24 History (Vraylar) dapagliflozin propanediol 10 mg 10 mg PO DAILY #30 tabs 01/23/24 03/15/24 Rx tablet (Farxiga) ropinirole 1 mg tablet 1 mg PO DAILY 01/23/24 03/15/24 History amiodarone 200 mg tablet 200 mg PO DAILY 03/15/24 03/15/24 History penicillin V potassium 250 mg 250 mg PO BID 03/15/24 03/15/24 History tablet New Prescriptions to Start Prescriptions: Height: 1.55 m Weight: 63.73 kg Laboratory Results:: Laboratory Results - last 24 hr 03/15/24 10:00: PT 10.2, INR 0.92, APTT 24.5, D-Dimer 1.19 H, Troponin I 0.02, NT-Pro-B Natriuret Pep 3670 H, Procalcitonin 0.087 03/15/24 14:07: Troponin I < 0.01 03/15/24 16:20: Troponin I < 0.01 03/15/24 21:30: POC Glucose 393 H* 03/16/24 06:07: WBC 9.9, RBC 2.58 L, Hgb 7.1 L D, Hct 24.0 L, MCV 93.0, MCH 28.3 , MCHC 30.4 L, RDW 18.6 H, Plt Count 299, MPV 11.8 H, Neut % (Auto) 89.0 H, Lymph % (Auto) 6.9 L, [place] % (Auto) 3.3, Eos % (Auto) 0.0 L, Baso % (Auto) 0.2, Neut # (Auto) 8.8 H, Lymph # (Auto) 0.7, [place] # (Auto) 0.3, Eos # (Auto) 0.0, Baso # (Auto) 0.0, Sodium 135 L, Potassium 4.5, Chloride 107, Carbon Dioxide 19 L, Anion Gap 13.5, BUN 46 H, Creatinine 2.00 H, Estimated Creat Clear 30, Estimated GFR 25 L, Est GFR ( Amer) 31 L, Glucose 184 H, Calcium 8.6, Magnesium 1.8, Total Bilirubin 0.2, AST 25, ALT 18, Alkaline Phosphatase 86, Total Protein 5.6 L, Albumin 3.1 L D, Globulin 2.5, Albumin/Globulin Ratio 1.2, TSH 2.79, Free T4 1.61 03/16/24 06:32: POC Glucose 234 H Medical History: Medical History (Updated 03/15/24 @ 17:43 by Demetri Tee MD) Coronary artery disease Pacemaker at end of battery life Right kidney mass Pancreatic mass Vomiting Dental abscess Pain, dental Hematuria Complication of urostomy Nausea vomiting and diarrhea Hypotension Generalized weakness Hypovolemia E. coli UTI (urinary tract infection) Infection due to extended-spectrum [id number] Klebsiella pn eumoniae Yeast infection of the vagina Complicated UTI (urinary tract infection) STACY (acute kidney injury) Septic shock Severe sepsis with acute organ dysfunction Cellulitis Candidiasis Abdominal pannus Nausea & vomiting Presence of urostomy Presence of urostomy Vitamin D deficiency Biventricular cardiac pacemaker in situ Bacterial endocarditis Cardiac arrhythmia Bacteria present Obesity (BMI 30.0-34.9) Gastroenteritis due to norovirus Decreased blood volume Sepsis due to Streptococcus agalactiae Bacteremia Ileostomy in place Pacemaker Bladder cancer Diarrhea Fever UTI (urinary tract infection) Dehydration Diabetes mellitus Renal insufficiency Abscess of skin or subcutaneous tissue Renal insufficiency Valvular heart disease Palpitations Myocardial infarction HTN (hypertension), benign T2DM (type 2 diabetes mellitus) Depression CHF (congestive heart failure) Cancer Arrhythmia Anxiety Encounter for pre-operative cardiovascular clearance PAD (peripheral artery disease) Abnormal ankle brachial index (GOMEZ) PVD (peripheral vascular disease) HHD (hypertensive heart disease) Smoker HLD (hyperlipidemia) Carotid bruit Carotid artery stenosis CAD (coronary artery disease) Assessment and Plan Assessment and plan all Dx Assessment and Plan for all problems:: Pharmacokinetic dosing service Objective: Age: 63 yo Serum creatinine: 2 mg/dL Height: 61.0 Inches Weight (kg): 63.73 Diagnosis: PNEUMONIA Assessment: IBW (kg): 47.80 Dosing wt(kg): 63.73 Estimated Creatinine clearance (ml/min): 22.3 CRCL method: Cockcroft and Gault using ibw(default). Drug selected: Vancomycin Vd (liters): 44.6 (factor used: 0.7 L/kg) Yamil (hr-1): 0.023 Half life (hrs): 30.14 CLvanco=?? 1.026 L/hr Recommended dose: 1000 mg Interval: 48 hrs Infusion time (hrs): 2.0 Predicted peak (mcg/mL): 32.8 Predicted trough (mcg/mL): 11.39 Total body weight is being used for vancomycin dosing. Recommendations: Give Vancomycin 1000 mg q 48 hrs with an expected Cpeak of 32.8 mcg/ml and an expected Ctrough of 11.39 mcg/ml AUC 0-24 /LANA Data: LANA 0.5 mcg/mL:?? AUC/LANA:? 974.7 LANA 1.0 mcg/mL:?? AUC/LANA:? 487.3 --------- LANA 1.5 mcg/mL:?? AUC/LANA:? 324.9 LANA 2.0 mcg/mL:?? AUC/LANA:? 243.7 Thank you for the consult
[2024-03-16 10:58] LABS: POC Glucose,Bedside 348 (70-110)
[2024-03-16 12:00] VITALS: PULSE 100
[2024-03-16 13:32] LABS: Hemoglobin 7.4 g/dL (12.2-16.2)
--- NOTE | 2024-03-16 14:35 | P.PN_ITS ---
Subjective *Date: 03/16/24 *Time: 14:35 Interval history: Patient continues to feel well. However, hemoglobin dropped to 7.1 overnight after starting therapeutic Lovenox. Could be dilutional, however patient has multiple comorbidities and high risk for bleeding. GI consulted, pending arden carpenter recommendations. N.p.o. at midnight. Denies bloody stool. Exam Data for Last 24 hours Vital signs and Labs for Last 24 Hours: Temp Pulse Resp BP Pulse Ox O2 Del Method 97.9 F 120 H 17 99/53 L 100 Room Air 03/16/24 08:00 03/16/24 08:00 03/16/24 08:00 03/16/24 08:00 03/16/24 08:00 03/16/24 12:33 Laboratory Results - last 24 hr 03/15/24 14:07: Troponin I < 0.01 03/15/24 16:20: Troponin I < 0.01 03/15/24 21:30: POC Glucose 393 H* 03/16/24 06:07: WBC 9.9, RBC 2.58 L, Hgb 7.1 L D, Hct 24.0 L, MCV 93.0, MCH 28.3, MCHC 30.4 L, RDW 18.6 H, Plt Count 299, MPV 11.8 H, Neut % (Auto) 89.0 H, Lymph % (Auto) 6.9 L, [place] % (Auto) 3.3, Eos % (Auto) 0.0 L, Baso % (Auto) 0.2, Neut # (Auto) 8.8 H, Lymph # (Auto) 0.7, [place] # (Auto) 0.3, Eos # (Auto) 0.0, Baso # (Auto) 0.0, Sodium 135 L, Potassium 4.5, Chloride 107, Carbon Dioxide 19 L, Anion Gap 13.5, BUN 46 H, Creatinine 2.00 H, Estimated Creat Clear 30, Estimated GFR 25 L, Est GFR ( Amer) 31 L, Glucose 184 H, Calcium 8.6, Magnesium 1.8, Total Bilirubin 0.2, AST 25, ALT 18, Alkaline Phosphatase 86, Total Protein 5.6 L, Albumin 3.1 L D, Globulin 2.5, Albumin/Globulin Ratio 1.2, TSH 2.79, Free T4 1.61 03/16/24 06:32: POC Glucose 234 H 03/16/24 10:47: POC Glucose 348 H* 03/16/24 13:25: Hgb 7.4 L, Hct 24.0 L I & O for Last 24 hours: Intake & Output 03/13/24 03/14/24 03/15/24 03/16/24 23:59 23:59 23:59 23:59 Intake Total 240 / 440 680 / 680 Output Total 1225 / 1225 600 / 600 Balance -985 / -785 80 / 80 Weight 63.14 kg 63.73 kg Microbiology Reports for the Last 24 Hours: Microbiology 03/15/24 10:37 Blood Blood Culture - Preliminary NO GROWTH AFTER 24 HOURS 03/15/24 10:35 Blood Blood Culture - Preliminary NO GROWTH AFTER 24 HOURS Constitutional Constitutional: no acute distress *Routine HEENT Exam Head: Present normocephalic Eye: Present EOMI and PERRL ENT: Present mucous membranes moist *Routine Neck Exam Neck: Present supple; Absent lymphadenopathy *Routine Respiratory Exam Respiratory: Present CTA bilaterally *Routine Cardiovascular Exam Cardiovascular: Present RRR *Routine Abdominal Exam Abdominal: Present soft and normoactive bowel sounds; Absent tenderness Comments: Urostomy site and bag viable. *Routine Extremities Exam Extremities: Absent cyanosis, clubbing or edema Comments: Bilateral lower extremity pitting edema 1+. *Routine Skin Exam Skin: Present warm; Absent rash *Routine Neurological Exam Neurological: Present alert and oriented X3 Assessment and Plan *Assessment and plan (1) Pneumonia: Status: Acute Category: Medical Code(s): J18.9 - Pneumonia, unspecified organism (2) Pulmonary embolism: Status: Acute Category: Medical Code(s): I26.99 - Other pulmonary embolism without acute cor pulmonale Plan Laxmi Cronin is a 63-year-old female with a medical history significant for CAD s/p 2 stents 12/13/2023, HFrEF 40%, CABG 2016, AICD, A-fib s/p maze and MILLY clip, bioprosthetic mitral valve replacement with chronic endocarditis on penicillin daily (used to follow with ID, lost to follow-up), CKD 3A, insulin- dependent diabetes who who presents with several week onset of progressive shortness of breath, nonproductive cough. Patient is not the best historian, unable to tell me when her shortness of breath began getting worse. She states she has baseline dyspnea on exertion. Denies fever/chills, chest pain, upper respiratory symptoms abdominal pain, urinary symptoms. She states that she has felt difficulty breathing since being discharged from [facility] 7 days for acute renal failure, though she does not remember what exactly they did for her there. Workup in the ED significant for heart rate 130, BNP 3670, and CTA revealing right upper lobe pneumonia with left lower lobe pulmonary embolism. On room air saturating appropriately. Given vancomycin, cefepime, Lasix 40 in the ED. Case discussed with ED provider and decision was made to admit patient for hospital-acquired pneumonia, pulmonary embolism. #Suspected hospital-acquired pneumonia #Right pleural effusion ? Discharged from [facility] about 7 days ago for acute renal failure, fecal disimpaction. ? Progressive shortness of breath since then, CTA revealed right upper lobe pneumonia with left lower lobe pulmonary embolism. ? Tachycardia up to 130, no leukocytosis, on room air saturating appropriately. Looks comfortable. ? IV vancomycin, cefepime day 03/20 pending cultures. ? Follow-up sputum, blood cultures. Follow-up MRSA nares screen. ? Pulmonology consulted, pending further recommendations. #Pulmonary embolism, left lower lobe ? CTA revealed LLL PE. Tachycardic up to 130, on room air. Seems comfortable. ? Therapeutic Lovenox pending ECHO results to evaluate for RV strain. If negative and will not need thrombectomy, transition to NOAC. ? Follow-up ECHO. ? Continue therapeutic Lovenox for now, hemoglobin stabilized at 7.4 this afternoon. ? Cardiology consulted, would appreciate recommendations on DAPT and NOAC combined with possible bleeding. Recent stent placement December 2023 in the setting of STEMI. #Acute on chronic anemia ? Hemoglobin dropped from 8.5-7.1 overnight in setting of therapeutic Lovenox. Hemoglobin 11.5 early February 2024. platelets also dropped, could be dilutional. ? Patient has multiple comorbidities, high risk for readmission and possible bleeding. Will have GI evaluate patient before DC. ? GI consulted, pending recommendations. N.p.o. at midnight. ? Iron studies low normal in February 2024. Folate also low. ? Ordered Venofer x 1. Will need ferrous sulfate on discharge. ? Started folic acid daily. ? Started IV Protonix 40 mg twice daily. Chronic medical problems: #CAD s/p 2 stents #A-fib s/p maze and MILLY clip #Bioprosthetic mitral valve replacement with chronic endocarditis #CABG 2015 ? Aspirin 81 mg, Plavix 75 mg, atorvastatin 40 mg. ? Amiodarone 400 mg daily. Patient is supposed to be on penicillin daily for chronic endocarditis. ? Follow-up blood cultures in the setting of chronic endocarditis. #HFimpEF ? Does have lower extremity pitting edema today, will start Lasix 40 mg daily. ? ECHO at February 2024 LVEF 55%. ? Hold GDMT due to soft pressures. #Type 2 diabetes ? Hemoglobin A1c 6.8 in early February 2024. ? LDSSI, ACHS glucose checks. ? Increase Lantus to 20 units nightly due to hyperglycemia. #CKD stage III ? Stable. Continue monitor Full code DVT prophylaxis: Therapeutic Lovenox as above
--- NOTE | 2024-03-16 14:39 | CA_ITS ---
APPROVED REPORT EXAM: Comprehensive 2D, Doppler, and color-flow Echocardiogram Service Liaison Representative: Dariela Kauffman RVT Ht: 5 ft 1 in Wt: 140lbs BSA: 1.62 BP: 126/67 mmHg Indications: PE,BIOPROSTHETIC MVR WITH CHRONIC ENDOCARDITIS ON SUPPRESSIVE ANTIBIOTICS,AICD,BLADDER CA,CAD,MILLY CLIP,PLEURAL EFFUSION RIGHT,ECHO 12/05/23 EF OF 40-45% TDS-PT FLAT ON BACK 2D Dimensions LA Volume 71.80 mL LA Volume Index 44.32 mL/m2 (M/F) 16-34 M-Mode Dimensions RVDd 2.41 cm (0.9-2.6) LA Diam 4.30 cm (1.9-4.0) LVDd 3.90 cm (3.5-5.7) LVDs 3.06 cm (3.5-5.7) IVSd 0.70 cm (0.6-1.1) PWd 0.46 cm (0.6-1.1) EF (Teich) 44.30% FS 21.50% EDV (Teich) 65.90 mL TAPSE 1.29 (<1.7) ESV (Teich) 36.70 mL Aortic Valve RICHA Index 0.78 cm2/m2 AoV Peak Damien. 146.0 (50-130 cm/s) AO Peak GR. 8.50 mmHg AO Mean GR. 4.40 (<5 mmHg) AO VTI 25.1 (18-25 cm) RICHA (VTI) 1.29 (2.5-4.5 cm2) Mitral Valve MV Mean Gr. 3.90 (<2mmHg) MV PHT 60.0 ms Pulmonary Valve PV Peak Velocity 103.0 (50-150 cm/s) Tricuspid Valve TR P. Velocity 309.00 cm/s RAP Estimate 10.00 mmHg RVSP 48.20 mmHg Left Ventricle The left ventricle is normal size. Left ventricular systolic function is moderately decreased. There is increased LV wall thickness. There is moderate global hypokinesis. There is severe hypokinesis in the distal inferoseptal and apical LV cid. Diastolic function is indeterminate. LVEF is 35-40%. Right Ventricle The right ventricle is normal size. The right ventricular systolic function is mildly reduced. A device lead is present in the right ventricle. Atria The left atrium is moderately dilated. The right atrium is mildly dilated. There is no Doppler evidence of interatrial shunt. Aortic Valve The aortic valve leaflets are mildly thickened. There is no aortic valvular stenosis. Trace aortic regurgitation. Mitral Valve s/p bioprosthetic MVR. The prosthesis is well-seated. Mean MV gradient is 8-10 mmHg (HR 107 bpm). The MV leaflets appear thickened, but no evidence of mobile echodensities. Trace mitral regurgitation. Tricuspid Valve Tricuspid valve is grossly normal in structure and function. Mild to moderate tricuspid regurgitation. RVSP is 35-40 mmHg. Pulmonic Valve The pulmonary valve is normal in structure. Mild pulmonic regurgitation. Great Vessels The aortic root is normal in size. The ascending aorta is not well-visualized. IVC is normal in size and collapses >50% with inspiration. Pericardium There is no pericardial effusion. Other Information Study Quality: Fair Conclusion Moderate reduction global LV systolic function (LVEF 35-40%). Severe hypokinesis in the distal inferoseptal and apical LV cid. Normal LV size with mildly reduced RV function. Biatrial dilation. s/p bioprosthetic MVR. Thickened MV leaflets, but no evidence of MV mobile echodensities Mean MV gradient 8-10 mmHg (HR 107 bpm). Mild to moderate TR. Compared to prior study, the LV systolic function is further reduced with new wall motion abnormalities present. Also, MV gradients are slightly further increased compared to prior TTE. Further evaluation with BROCK to evaluate for LV pannus formation versus thrombus is suggested. Clinical correlation is required to determine timing and hemodynamic stability for the procedure (inpatient versus outpatient BROCK). Electronically signed by : Deanna Fowler MD 03/17/2024 12:19:51
[2024-03-16] MEDS: PANTOPRAZOLE 40MG VIAL 40 MG IV ×2 (15:35→21:06)
[2024-03-16] MEDS: SODIUM CHLORIDE 0.9% 10ML VIAL 10 ML IV ×2 (15:35→21:06)
[2024-03-16] MEDS: IRON SUCROSE COMPLEX 200 MG in 0.9 % SODIUM CHLORIDE 100 ML 220 MG IV (15:35)
[2024-03-16] MEDS: FUROSEMIDE 40 MG TABLET PO (15:36)
[2024-03-16] MEDS: FOLIC ACID 1MG TABLET 1 MG PO (15:36)
[2024-03-16 16:00] VITALS: BP 138/99; PULSE 100; PULSE 118; RESP 16; TEMP 36.7; O2SAT 92
--- NOTE | 2024-03-16 16:24 | P.CONS_ITS ---
History of Present Illness *Admission Date: 03/15/24 *History of present illness: Laxmi Cronin is a 63-year-old female with a medical history significant for CAD s/p 2 stents 12/13/2023, HFrEF 40%, CABG 2016, AICD, A-fib s/p maze and MILLY clip, bioprosthetic mitral valve replacement with chronic endocarditis on penicillin daily (used to follow with ID, lost to follow-up), CKD 3A, insulin- dependent diabetes, hypothyroidism who who presents with several week onset of progressive shortness of breath, nonproductive cough. Patient is not the best historian, unable to tell me when her shortness of breath began getting worse. She states she has baseline dyspnea on exertion. Denies fever/chills, chest pain, upper respiratory symptoms abdominal pain, urinary symptoms. She states that she has felt difficulty breathing since being discharged from [facility] 7 days for acute renal failure, though she does not remember what exactly they did for her there. Workup in the ED significant for heart rate 130, BNP 3670, and CTA revealing right upper lobe pneumonia with left lower lobe pulmonary embolism. On room air saturating appropriately. Given vancomycin, cefepime, Lasix 40 in the ED. Case discussed with ED provider and decision was made to admit patient for hospital-acquired pneumonia, pulmonary embolism. Per admission H&P - Therapeutic Lovenox added. Patient's hemoglobin dropped from 8.4 down to 7.1 overnight. Denies no melena or hematochezia. Was previously on Plavix and aspirin at home and denies other NSAID use. Hemoglobin as high as 12.3 at the beginning of February, dropped to 10.1 on 03/05/2024 and down to 8.5 as of 03/15/2024 yesterday. Patient has never had EGD or colonoscopy. Never had Cologuard testing. She denies any family history of colon cancer or other GI cancers. Denies any melena or hematochezia. She is awaiting cardiology consult to discuss need for triple therapy. [facility] Disclaimer: The information contained in this section may have been updated after the patient was seen, as this information can be updated by other users. Medical History (Updated 03/16/24 @ 16:26 by Abi Hunter APRN) Coronary artery disease Pacemaker at end of battery life Right kidney mass Pancreatic mass Vomiting Dental abscess Pain, dental Hematuria Complication of urostomy Nausea vomiting and diarrhea Hypotension Generalized weakness Hypovolemia E. coli UTI (urinary tract infection) Infection due to extended-spectrum vpca-melrshhrd-vpsxfamhm Klebsiella pneumoniae Yeast infection of the vagina Complicated UTI (urinary tract infection) STACY (acute kidney injury) Septic shock Severe sepsis with acute organ dysfunction Cellulitis Candidiasis Abdominal pannus Nausea & vomiting Presence of urostomy Presence of urostomy Vitamin D deficiency Biventricular cardiac pacemaker in situ Bacterial endocarditis Cardiac arrhythmia Bacteria present Obesity (BMI 30.0-34.9) Gastroenteritis due to norovirus Decreased blood volume Sepsis due to Streptococcus agalactiae Bacteremia Ileostomy in place Pacemaker Bladder cancer Diarrhea Fever UTI (urinary tract infection) Dehydration Diabetes mellitus Renal insufficiency Abscess of skin or subcutaneous tissue Renal insufficiency Valvular heart disease Palpitations Myocardial infarction HTN (hypertension), benign T2DM (type 2 diabetes mellitus) Depression CHF (congestive heart failure) Cancer Arrhythmia Anxiety Encounter for pre-operative cardiovascular clearance PAD (peripheral artery disease) Abnormal ankle brachial index (GOMEZ) PVD (peripheral vascular disease) HHD (hypertensive heart disease) Smoker HLD (hyperlipidemia) Carotid bruit Carotid artery stenosis CAD (coronary artery disease) Surgical History Hx of tonsillectomy History of mitral valve replacement S/P left atrial appendage ligation AICD (automatic cardioverter/defibrillator) present H/O tricuspid valve replacement History of coronary artery bypass graft Family History Other Cancer Diabetes Heart attack Social History (Updated 03/15/24 @ 15:13 by Willa Gates RN) Smoking Status: Current every day smoker tobacco type: cigarettes packs per day: 1 second hand exposure: Yes alcohol intake: never substance use type: marijuana current occupational status: unemployed Travel in the last 8 weeks: None household members: family housing: house number of children: 2 current occupational exposures/hazards: No caffeine: Yes Have you lived/traveled outside [place] in past 30 days?: No Contact w/someone who lives/traveled outside [place] past 30 days?: No Exposure to someone with infectious disease in past 14 days?: No Do you have a fever (greater than 100.4 F or 38 C)?: No Have you tested positive for COVID-19: No Exposed to someone with COVID-19 in past 14 days?: No Do you have a sore throat?: No Do you have a cough?: No Do you have any weakness?: No Are you experiencing any nausea/vomitting?: No Do you have any diarrhea?: No Are you experiencing any unusual bleeding?: No Do you have any muscle aches/pain?: No Do you have any abdominal pain?: No Are you experiencing loss of taste or smell?: No Review of Systems Review of Systems Review of systems:: pertinent systems reviewed and negative unless documented below Constitutional Constitutional: Reports system reviewed and no additional complaints, except as documented Eyes Eyes: Reports system reviewed and no additional complaints, except as documented ENT Ears, Nose, Mouth, and Throat: Reports system reviewed and no additional complaints, except as documented *Cardiovascular Cardiovascular: Reports system reviewed and no additional complaints, except as documented and Reports dyspnea *Respiratory Respiratory: Reports chest congestion, Reports cough and Reports dyspnea *Gastrointestinal Gastrointestinal: Denies abdominal pain, Denies hematochezia and Denies melena *Genitourinary Genitourinary: Reports system reviewed and no additional complaints, except as documented *Musculoskeletal Musculoskeletal: Reports system reviewed and no additional complaints, except as documented *Neurologic Neurologic: Reports system reviewed and no additional complaints, except as documented Meds Home Medications and Allergies Home Medications ?Medication ?Instructions ?Recorded ?Confirmed ?Type alprazolam 0.5 mg tablet 0.5 mg PO BIDP PRN Anxiety 12/12/23 03/15/24 History cholecalciferol (vitamin D3) 25 25 mcg PO DAILY 12/12/23 03/15/24 History mcg (1,000 unit) tablet citalopram 20 mg tablet 20 mg PO HS 12/12/23 03/15/24 History insulin glargine 100 unit/mL (3 8 unit SQ HS 12/12/23 03/15/24 History mL) subcutaneous pen (Lantus Solostar U-100 Insulin) insulin human U-100 NPH-regulr 6 unit SQ BID 12/12/23 03/15/24 History 70-30 mix 100 unit/mL subcutaneous susp (Novolin 70/30 U-100 Insulin) trazodone 50 mg tablet 50 mg PO HS 12/12/23 03/15/24 History aspirin 81 mg tablet,delayed 81 mg PO DAILY 30 days #30 tabs 12/14/23 03/15/24 Rx release atorvastatin 40 mg tablet 40 mg PO HS 30 days #30 tabs 12/14/23 03/15/24 Rx clopidogrel 75 mg tablet 75 mg PO DAILY 30 days #30 tabs 12/14/23 03/15/24 Rx cariprazine 1.5 mg capsule 1.5 mg PO DAILY 01/23/24 03/15/24 History (Vraylar) dapagliflozin propanediol 10 mg 10 mg PO DAILY #30 tabs 01/23/24 03/15/24 Rx tablet (Farxiga) ropinirole 1 mg tablet 1 mg PO DAILY 01/23/24 03/15/24 History amiodarone 200 mg tablet 200 mg PO DAILY 03/15/24 03/15/24 History penicillin V potassium 250 mg 250 mg PO BID 03/15/24 03/15/24 History tablet New Prescriptions to Start Prescriptions: Allergies Allergy/AdvReac Type Severity Reaction Status Date / Time No Known Allergies Allergy Verified 03/15/24 10:28 Exam (Inpt) Vital signs and Labs for Last 24 Hours: Temp Pulse Resp BP Pulse Ox O2 Del Method 97.9 F 100 H 17 99/53 L 100 Room Air 03/16/24 08:00 03/16/24 12:00 03/16/24 08:00 03/16/24 08:00 03/16/24 08:00 03/16/24 12:33 Laboratory Results - last 24 hr 03/15/24 16:20: Troponin I < 0.01 03/15/24 21:30: POC Glucose 393 H* 03/16/24 06:07: WBC 9.9, RBC 2.58 L, Hgb 7.1 L D, Hct 24.0 L, MCV 93.0, MCH 28.3, MCHC 30.4 L, RDW 18.6 H, Plt Count 299, MPV 11.8 H, Neut % (Auto) 89.0 H, Lymph % (Auto) 6.9 L, [place] % (Auto) 3.3, Eos % (Auto) 0.0 L, Baso % (Auto) 0.2, Neut # (Auto) 8.8 H, Lymph # (Auto) 0.7, [place] # (Auto) 0.3, Eos # (Auto) 0.0, Baso # (Auto) 0.0, Sodium 135 L, Potassium 4.5, Chloride 107, Carbon Dioxide 19 L, Anion Gap 13.5, BUN 46 H, Creatinine 2.00 H, Estimated Creat Clear 30, E stimated GFR 25 L, Est GFR ( Amer) 31 L, Glucose 184 H, Calcium 8.6, Magnesium 1.8, Total Bilirubin 0.2, AST 25, ALT 18, Alkaline Phosphatase 86, T otal Protein 5.6 L, Albumin 3.1 L D, Globulin 2.5, Albumin/Globulin Ratio 1.2, TSH 2.79, Free T4 1.61 03/16/24 06:32: POC Glucose 234 H 03/16/24 10:47: POC Glucose 348 H* 03/16/24 13:25: Hgb 7.4 L, Hct 24.0 L I & O for Labs for Last 24 Hours: Intake & Output 03/14/24 03/15/24 03/16/24 03/17/24 11:59 11:59 11:59 11:59 Intake Total 920 Output Total 1825 Balance -905 Weight 62.142 kg 63.73 kg Microbiology Reports for the Last 24 Hours: Microbiology 03/16/24 13:19 Sputum - Expectorated Sputum Gram Stain - Final 03/15/24 10:37 Blood Blood Culture - Preliminary NO GROWTH AFTER 24 HOURS 03/15/24 10:35 Blood Blood Culture - Preliminary NO GROWTH AFTER 24 HOURS Constitutional: no acute distress and average body habitus Head: Present normocephalic Neck: Present normal inspection Respiratory: Present decreased breath sounds, rhonchi, wheezes and crackles Comment:: Left more than right GI: Absent distention or tenderness Results Labs 03/16/24 13:25 03/16/24 06:07 Labs: Laboratory Results - last 24 hr 03/15/24 16:20: Troponin I < 0.01 03/15/24 21:30: POC Glucose 393 H* 03/16/24 06:07: WBC 9.9, RBC 2.58 L, Hgb 7.1 L D, Hct 24.0 L, MCV 93.0, MCH 28.3, MCHC 30.4 L, RDW 18.6 H, Plt Count 299, MPV 11.8 H, Neut % (Auto) 89.0 H, Lymph % (Auto) 6.9 L, [place] % (Auto) 3.3, Eos % (Auto) 0.0 L, Baso % (Auto) 0.2, Neut # (Auto) 8.8 H, Lymph # (Auto) 0.7, [place] # (Auto) 0.3, Eos # (Auto) 0.0, Baso # (Auto) 0.0, Sodium 135 L, Potassium 4.5, Chloride 107, Carbon Dioxide 19 L, Anion Gap 13.5, BUN 46 H, Creatinine 2.00 H, Estimated Creat Clear 30, E stimated GFR 25 L, Est GFR ( Amer) 31 L, Glucose 184 H, Calcium 8.6, Magnesium 1.8, Total Bilirubin 0.2, AST 25, ALT 18, Alkaline Phosphatase 86, T otal Protein 5.6 L, Albumin 3.1 L D, Globulin 2.5, Albumin/Globulin Ratio 1.2, TSH 2.79, Free T4 1.61 03/16/24 06:32: POC Glucose 234 H 03/16/24 10:47: POC Glucose 348 H* 03/16/24 13:25: Hgb 7.4 L, Hct 24.0 L Assessment and Plan *Assessment and plan (1) Anemia: Status: Acute Category: Medical Code(s): D64.9 - Anemia, unspecified Plan 1. Anemia Patient on Plavix and aspirin at home, denies alcohol or NSAID use. Hemoglobin dropped from 12.3 down to 10.1 in 3 weeks in February. Dropped from 8.5-7.1 overnight in the hospital with the addition of Lovenox for her diagnosis of PE. Denies melena or hematochezia and we are awaiting Hemoccult testing. She also has a Venofer infusion scheduled. She is also being treated for COPD exacerbation and pneumonia, is tachycardic, had a non-STEMI in December. Awaiting cardiology consult. After discussion with Dr. Lock may recommend panendoscopy but would prefer patient more stable prior to sedation for procedure and will await cardiology recommendations.
--- NOTE | 2024-03-16 16:49 | PC.NURSE ---
patient is a/o x4, remains on room air, tolerating well. patient has had a non productive cough throughout shift. remains paced on tele. voids per urostomy. patient has periods where she is pleasantly confused, stated to me that she was anxious about what was going on explained and educated patient on why she is in the hospital, patient verbalized understanding and anxiety subsided. patient will be NPO after midnight tonight. occult stool sample still needed. bed alarm in place, call light within reach.
[2024-03-16 17:27] LABS: POC Glucose,Bedside 78 (70-110)
[2024-03-16 20:00] VITALS: BP 109/68; PULSE 110; PULSE 131; RESP 16; TEMP 36.8; O2SAT 92
[2024-03-16] MEDS: ROPINIROLE 1MG TABLET 1 MG PO (21:05)
[2024-03-16] MEDS: ATORVASTATIN 40MG TABLET 40 MG PO (21:05)
[2024-03-16] MEDS: TRAZODONE 50MG TABLET 50 MG PO (21:06)
[2024-03-16] MEDS: CITALOPRAM 20MG TABLET 20 MG PO (21:06)
[2024-03-16] MEDS: ENOXAPARIN 80MG/0.8ML SYRINGE 65 MG SUBCUT (21:06)
[2024-03-16] MEDS: INSULIN GLARGINE 100 UNITS/ML 3ML FLEXPEN 20 UNIT SUBCUT (21:32)
[2024-03-16 22:24] LABS: POC Glucose,Bedside 217 (70-110)
[2024-03-17] VITALS (8 sets, daily range): BP systolic 114–130; BP diastolic 62–74; PULSE 72–116; RESP 16–17; TEMP 36.4–37.1; O2SAT 92–100; BMI 26.3
--- NOTE | 2024-03-17 05:06 | PC.NURSE ---
Pt. is alert and orientated x 4. Pt. on room air and tolerating well. Pt. has a non productive congested cough. She states she has had cough for a long time. Pt. voids per urostomy. Urostomy came loose and leaked. Urostomy changed by patient with assist by nurse and SNA. Pt. cleaned up and bed changed. Pt. NPO since midnight. GI consult today. Pt. remains paced on tele. Vss. Pt personal items and call covarrubias in reach.
[2024-03-17] MEDS: CEFEPIME HCL 1 GM in 0.9 % SODIUM CHLORIDE 50 ML IV ×2 (06:21→20:24)
[2024-03-17] MEDS: SODIUM CHLORIDE 0.9% 10ML FLUSH SYRINGE 10 ML IV ×2 (06:22→07:05)
[2024-03-17 06:48] LABS: Basophils % 0.3 % (0.1-2.0); Eosinophils # 0.1 K/mm3 (0.0-0.4); Eosinophils % 0.4 % (0.1-12.0); Hematocrit 25.1 % (37.0-47.0); Hemoglobin 7.5 g/dL (12.2-16.2); Lymphocytes # 1.6 K/mm3 (0.7-4.5); Lymphocytes % 12.8 % (10-50); Mean Corpuscular HGB Conc 29.9 g/dL (31.8-35.4); Mean Corpuscular Hemoglobin 28.4 pg (27.0-31.2); Mean Corpuscular Volume 95.1 fl (81-99); Mean Platelet Volume 12.2 fl (7.4-10.4); Monocytes # 0.7 K/mm3 (0.1-1.0); Monocytes % 5.1 % (1.7-9.3); Neutrophils # 10.3 K/mm3 (1.8-7.8); Neutrophils % 80.9 % (37.0-80.0); Platelet Count 279 K/mm3 (142-424); Red Blood Count 2.64 M/mm3 (4.20-5.40); White Blood Count 12.8 K/mm3 (4.8-10.8)
[2024-03-17 07:07] LABS: POC Glucose,Bedside 101 (70-110)
[2024-03-17 07:23] LABS: Chloride 110 mmol/L (98-107)
[2024-03-17 07:24] LABS: Albumin Level 3.3 g/dl (3.5-5.0); Sodium 139 mmol/L (136-145)
[2024-03-17 07:26] LABS: Blood Urea Nitrogen 49 mg/dl (7-17); Carbon Dioxide 19 mmol/L (22.0-30.0); Creatinine Clearance Estimated 27 mL/min (50-200); Estimated Glomerular Filt Rate 23 ml/min (>60); GFR (African American) 27 ML/MIN (>60)
[2024-03-17 07:27] LABS: Alanine Aminotransferase 25 U/L (12-78); Albumin/Globulin Ratio 1.2 (1.1-1.8); Alkaline Phosphatase 105 U/L (38-126); Aspartate Amino Transferase 46 U/L (14-36); Bilirubin,Total 0.4 mg/dl (0.2-1.3); Calcium 8.3 mg/dl (8.4-10.2); Globulin 2.8 g/dL (1.3-3.2); Glucose 69 mg/dl (74-100); Magnesium 1.9 mg/dl (1.6-2.3); Total Protein,Serum 6.1 g/dl (6.3-8.2)
[2024-03-17] MEDS: FOLIC ACID 1MG TABLET 1 MG PO (08:49)
[2024-03-17] MEDS: FUROSEMIDE 40 MG TABLET PO (08:49)
[2024-03-17] MEDS: AMIODARONE 200MG TABLET 200 MG PO (08:49)
[2024-03-17] MEDS: ASPIRIN EC 81MG TABLET 81 MG PO (08:49)
[2024-03-17] MEDS: PANTOPRAZOLE 40MG VIAL 40 MG IV ×2 (08:49→21:20)
[2024-03-17] MEDS: SODIUM CHLORIDE 0.9% 10ML VIAL 10 ML IV ×2 (08:49→21:20)
[2024-03-17] MEDS: CLOPIDOGREL 75MG TAB 75 MG PO (08:49)
--- NOTE | 2024-03-17 09:43 | HMH.OTEV ---
OT Inpatient Evaluation Rehab OT IP Evaluation Start: 03/17/24 08:22 Freq: ONCE Status: Active Protocol: Document 03/17/24 09:40 [email or web address] (Rec: 03/17/24 09:43 [facility] [id number]) Rehab OT IP Assessment Subjective History Pt oriented x 3 on arrival. Pt agreeable to engage in therapy evaluation. Pt's daughter's present and supportive. Pt admitted on 03/15/24 due to SOB. History and physical: Laxmi Cronin is a 63- year-old female with a medical history significant for CAD s /p 2 stents 12/13/2023, HFrEF 40%, CABG 2015, AICD, A-fib s/ p maze and MILLY clip, bioprosthetic mitral valve replacement with chronic endocarditis on penicillin daily (used to follow with ID, lost to follow-up), CKD 3A, insulin-dependent diabetes, hypothyroidism who who presents with several week onset of progressive shortness of breath, nonproductive cough. Patient is not the best historian, unable to tell me when her shortness of breath began getting worse. She states she has baseline dyspnea on exertion. Denies fever/chills, chest pain, upper respiratory symptoms abdominal pain, urinary symptoms. She states that she has felt difficulty breathing since being discharged from [facility] 7 days for acute renal failure, though she does not remember what exactly they did for her there. Workup in the ED significant for heart rate 130, BNP 3670, and CTA revealing right upper lobe pneumonia with left lower lobe pulmonary embolism. On room air saturating appropriately. Given vancomycin, cefepime, Lasix 40 in the ED. Case discussed with ED provider and decision was made to admit patient for hospital-acquired pneumonia, pulmonary embolism. Subjective Prior to being in the hospital , pt lived with her daughter. Pt claims normally she is independent with all ADLs. However she is dependent on daughter for completion of IADLs. Pt does use a rolling walker when out in the community. Daughter does assist with getting her in and out of the shower for safety concerns. Pt no longer drives . Objective Patient Orientation Person,Place,Birthday Right Upper Extremity Gross ROM WFL Left Upper Extremity Gross ROM WFL Bed Mobility bed mobility-scooting,bed mobility - supine/sit Assist Level Independent Transfer Training Sit/Stand Transfer Assist Level Supervision/Stand by Lower Body Dressing Ability Standby Assistance Performing Toilet Hygiene Ability Standby Assistance Overall Commode/Toilet Transfer Ability Standby Assistance Commode/Toilet Transfer Technique Sit to/from Ambulatory Rehab OT IP prob,goals,plan Problems Date of Evaluation: 03/17/24 Rehab Potential Rehab Potential Innapropriate for Skilled Therapy Discharge Plan OT Discharge Plan Pt appears to be at her baseline with functional transfers and ADL independence . Pt can return home with daughter once she is medically stable per physician. Eval Complexity Eval Charge Codes 96442 - Moderate Complexity PHYSICIAN CERTIFICATION: I certify the specified therapy services for Laxmi Cronin are required, authorized, and reviewed every 30 days.
--- NOTE | 2024-03-17 09:51 | EXP.PULM.CON ---
History of Present Illness History of present illness: Ms. Cronin is a 63-year-old female with reported history of CAD CHF 2016 A-fib bioprosthetic mitral valve with chronic endocarditis on daily penicillin as per the patient presented to the ER with worsening respiratory distress and pulmonary was called for further evaluation and management. Greater than [id number] smoking, using nebulization therapies on as-needed basis at baseline. Not using any oxygen supplementation [facility] Disclaimer: The information contained in this section may have been updated after the patient was seen, as this information can be updated by other users. Medical History (Updated 03/17/24 @ 12:13 by Rina Hector MD) Acute respiratory failure with hypoxia Pleural effusion on right Chronic endocarditis Acute on chronic HFrEF (heart failure with reduced ejection fraction) Coronary artery disease Pacemaker at end of battery life Right kidney mass Pancreatic mass Vomiting Dental abscess Pain, dental Hematuria Complication of urostomy Nausea vomiting and diarrhea Hypotension Generalized weakness Hypovolemia E. coli UTI (urinary tract infection) Infection due to extended-spectrum [id number] Klebsiella pneumoniae Yeast infection of the vagina Complicated UTI (urinary tract infection) STACY (acute kidney injury) Septic shock Severe sepsis with acute organ dysfunction Cellulitis Candidiasis Abdominal pannus Nausea & vomiting Presence of urostomy Presence of urostomy Vitamin D deficiency Biventricular cardiac pacemaker in situ Bacterial endocarditis Cardiac arrhythmia Bacteria present Obesity (BMI 30.0-34.9) Gastroenteritis due to norovirus Decreased blood volume Sepsis due to Streptococcus agalactiae Bacteremia Ileostomy in place Pacemaker Bladder cancer Diarrhea Fever UTI (urinary tract infection) Dehydration Diabetes mellitus Renal insufficiency Abscess of skin or subcutaneous tissue Renal insufficiency Valvular heart disease Palpitations Myocardial infarction HTN (hypertension), benign T2DM (type 2 diabetes mellitus) Depression CHF (congestive heart failure) Cancer Arrhythmia Anxiety Encounter for pre-operative cardiovascular clearance PAD (peripheral artery disease) Abnormal ankle brachial index (GOMEZ) PVD (peripheral vascular disease) HHD (hypertensive heart disease) Smoker HLD (hyperlipidemia) Carotid bruit Carotid artery stenosis CAD (coronary artery disease) Surgical History (Updated 03/17/24 @ 10:36 by Nataliya Hutchinson APRN) Status post mitral valve replacement Hx of tonsillectomy History of mitral valve replacement S/P left atrial appendage ligation AICD (automatic cardioverter/defibrillator) present H/O tricuspid valve replacement History of coronary artery bypass graft Family History Other Cancer Diabetes Heart attack Social History (Updated 03/15/24 @ 15:13 by Willa Gates RN) Smoking Status: Current every day smoker tobacco type: cigarettes packs per day: 1 second hand exposure: Yes alcohol intake: never substance use type: marijuana current occupational status: unemployed Travel in the last 8 weeks: None household members: family housing: house number of children: 2 current occupational exposures/hazards: No caffeine: Yes Have you lived/traveled outside [place] in past 30 days?: No Contact w/someone who lives/traveled outside US past 30 days?: No Exposure to someone with infectious disease in past 14 days?: No Do you have a fever (greater than 100.4 F or 38 C)?: No Have you tested positive for COVID-19: No Exposed to someone with COVID-19 in past 14 days?: No Do you have a sore throat?: No Do you have a cough?: No Do you have any weakness?: No Are you experiencing any nausea/vomitting?: No Do you have any diarrhea?: No Are you experiencing any unusual bleeding?: No Do you have any muscle aches/pain?: No Do you have any abdominal pain?: No Are you experiencing loss of taste or smell?: No Review of Systems Constitutional Constitutional: Reports anorexia, Reports fatigue, Reports lethargy and Reports weakness Eyes Eyes: Denies eye discharge, Denies dry eyes, Denies irritation and Denies itchy eyes ENT Ears, Nose, Mouth, and Throat: Denies epistaxis, Denies facial pain, Denies lip swelling and Denies throat swelling *Cardiovascular Cardiovascular: Reports dyspnea, Reports dyspnea on exertion and Reports orthopnea *Respiratory Respiratory: Denies change in phlegm color, Reports chest congestion, Reports cough, Reports dyspnea, Reports dyspnea on exertion, Reports excessive phlegm production, Denies hemoptysis, Denies pain on inspiration, Denies pain with cough and Reports wheezing *Gastrointestinal Gastrointestinal: Denies abdominal pain, Denies belching and Denies cramping *Musculoskeletal Musculoskeletal: Reports back pain, Reports myalgias and Reports other (No small joint swelling or Pain) *Neurologic Neurologic: Reports system reviewed and no additional complaints, except as documented and Reports weakness Psychiatric Psychiatric: Denies homicidal ideation and Denies suicidal ideation Endocrine Endocrine: Reports fatigue and Denies heat intolerance Hematologic/Lymphatic Hematologic/Lymphatic: Denies easy bleeding and Denies lymphadenopathy Allergic/Immunologic Allergic/Immunologic: Denies itchy eyes, Denies lip swelling, Denies throat swelling and Reports wheezing Pulmonology Exam Inpatient Vital signs and Labs for Last 24 Hours: Temp Pulse Resp BP Pulse Ox O2 Del Method 98 F 116 H 16 116/73 93 L Room Air 03/17/24 08:00 03/17/24 08:00 03/17/24 08:00 03/17/24 08:00 03/17/24 08:00 03/17/24 08:00 Laboratory Results - last 24 hr 03/16/24 10:47: POC Glucose 348 H* 03/16/24 13:25: Hgb 7.4 L, Hct 24.0 L 03/16/24 16:13: POC Glucose 78 03/16/24 21:22: POC Glucose 217 H 03/17/24 05:58: WBC 12.8 H D, RBC 2.64 L, Hgb 7.5 L, Hct 25.1 L, MCV 95.1, MCH 28.4, MCHC 29.9 L, RDW 19.0 H, Plt Count 279, MPV 12.2 H, Neut % (Auto) 80.9 H, Lymph % (Auto) 12.8, [place] % (Auto) 5.1, Eos % (Auto) 0.4, Baso % (Auto) 0.3, Neut # (Auto) 10.3 H, Lymph # (Auto) 1.6, [place] # (Auto) 0.7, Eos # (Auto) 0.1, Baso # (Auto) 0.0, Sodium 139, Potassium 4.0, Chloride 110 H, Carbon Dioxide 19 L, Anion Gap 14.0, BUN 49 H, Creatinine 2.20 H, Estimated Creat Clear 27, Estimated GFR 23 L, Est GFR ( Amer) 27 L, Glucose 69 L D, Calcium 8.3 L, Magnesium 1.9, Total Bilirubin 0.4, AST 46 H D, ALT 25 D, Alkaline Phosphatase 105, Total Protein 6.1 L, Albumin 3.3 L, Globulin 2.8, Albumin/Globulin Ratio 1.2 03/17/24 06:06: POC Glucose 101 I & O for Labs for Last 24 Hours: Intake & Output 03/14/24 03/15/24 03/16/24 03/17/24 23:59 23:59 23:59 23:59 Intake Total 240 / 440 680 / 1070 390 / 390 Output Total 1225 / 1225 1850 / 1850 0 / 0 Balance -985 / -785 -1170 / -780 390 / 390 Weight 139 lb 3.2 oz 140 lb 8 oz 139 lb 8 oz Microbiology Reports for the Last 24 Hours: Microbiology 03/16/24 13:19 Sputum - Expectorated Sputum Gram Stain - Final 03/15/24 10:37 Blood Blood Culture - Preliminary NO GROWTH AFTER 24 HOURS 03/15/24 10:35 Blood Blood Culture - Preliminary NO GROWTH AFTER 24 HOURS Constitutional: Present moderate distress Head: Present normocephalic and atraumatic ENT: Present normal exam, normal oropharynx and mucous membranes moist Neck: Present normal inspection and full ROM Respiratory: Present prolonged expiratory phase, rhonchi, diminished air movement and able to speak in complete sentences; Absent wheezes Cardiac: Present S1/S2, Tachycardia and radial pulses present GI: Present soft and distention; Absent tenderness or guarding Rectal (female): Present deferred (female): Present deferred Skin: Present intact; Absent cyanosis or jaundice Neuro: Present alert, awake and oriented x 3 Extremities: Present normal inspection; Absent clubbing or cyanosis Psychiatric: Present normal affect and cooperative Meds Home Medications and Allergies Home Medications ?Medication ?Instructions ?Recorded ?Confirmed ?Type alprazolam 0.5 mg tablet 0.5 mg PO BIDP PRN Anxiety 12/12/23 03/15/24 History cholecalciferol (vitamin D3) 25 25 mcg PO DAILY 12/12/23 03/15/24 History mcg (1,000 unit) tablet citalopram 20 mg tablet 20 mg PO HS 12/12/23 03/15/24 History insulin glargine 100 unit/mL (3 8 unit SQ HS 12/12/23 03/15/24 History mL) subcutaneous pen (Lantus Solostar U-100 Insulin) insulin human U-100 NPH-regulr 6 unit SQ BID 12/12/23 03/15/24 History 70-30 mix 100 unit/mL subcutaneous susp (Novolin 70/30 U-100 Insulin) trazodone 50 mg tablet 50 mg PO HS 12/12/23 03/15/24 History aspirin 81 mg tablet,delayed 81 mg PO DAILY 30 days #30 tabs 12/14/23 03/15/24 Rx release atorvastatin 40 mg tablet 40 mg PO HS 30 days #30 tabs 12/14/23 03/15/24 Rx clopidogrel 75 mg tablet 75 mg PO DAILY 30 days #30 tabs 12/14/23 03/15/24 Rx cariprazine 1.5 mg capsule 1.5 mg PO DAILY 01/23/24 03/15/24 History (Vraylar) dapagliflozin propanediol 10 mg 10 mg PO DAILY #30 tabs 01/23/24 03/15/24 Rx tablet (Farxiga) ropinirole 1 mg tablet 1 mg PO DAILY 01/23/24 03/15/24 History amiodarone 200 mg tablet 200 mg PO DAILY 03/15/24 03/15/24 History penicillin V potassium 250 mg 250 mg PO BID 03/15/24 03/15/24 History tablet New Prescriptions to Start Prescriptions: Allergies Allergy/AdvReac Type Severity Reaction Status Date / Time No Known Allergies Allergy Verified 03/15/24 10:28 Results Laboratory Findings 03/17/24 05:58 03/17/24 05:58 PT/INR, D-dimer PT 10.2 seconds (9.2-12.1) 03/15/24 10:00 INR 0.92 (0.9-1.1) 03/15/24 10:00 D-Dimer 1.19 ug/mL (0.0-0.5) H 03/15/24 10:00 Abnormal lab findings: Abnormal Labs 03/15/24 03/15/24 03/15/24 10:00 10:05 21:30 WBC RBC 2.99 L Hgb 8.5 L Hct 28.4 L MCHC 29.9 L RDW 18.9 H MPV 11.4 H Neut % (Auto) Lymph % (Auto) Eos % (Auto) Neut # (Auto) D-Dimer 1.19 H VBG pCO2 33.3 L VBG pO2 56.4 H VBG HCO3 16.4 L VBG Total CO2 17.4 L VBG O2 Saturation 87.2 H VBG Base Excess -9.9 L Sodium Chloride 112 H Carbon Dioxide 21 L BUN 46 H Creatinine 2.00 H Estimated GFR 25 L Est GFR ( Amer) 31 L Glucose 166 H POC Glucose 393 H* Calcium AST NT-Pro-B Natriuret Pep 3670 H Total Protein Albumin 03/16/24 03/16/24 03/16/24 06:07 06:32 10:47 WBC RBC 2.58 L Hgb 7.1 L D Hct 24.0 L MCHC 30.4 L RDW 18.6 H MPV 11.8 H Neut % (Auto) 89.0 H Lymph % (Auto) 6.9 L Eos % (Auto) 0.0 L Neut # (Auto) 8.8 H D-Dimer VBG pCO2 VBG pO2 VBG HCO3 VBG Total CO2 VBG O2 Saturation VBG Base Excess Sodium 135 L Chloride Carbon Dioxide 19 L BUN 46 H Creatinine 2.00 H Estimated GFR 25 L Est GFR ( Amer) 31 L Glucose 184 H POC Glucose 234 H 348 H* Calcium AST NT-Pro-B Natriuret Pep Total Protein 5.6 L Albumin 3.1 L D 03/16/24 03/16/24 03/17/24 13:25 21:22 05:58 WBC 12.8 H D RBC 2.64 L Hgb 7.4 L 7.5 L Hct 24.0 L 25.1 L MCHC 29.9 L RDW 19.0 H MPV 12.2 H Neut % (Auto) 80.9 H Lymph % (Auto) Eos % (Auto) Neut # (Auto) 10.3 H D-Dimer VBG pCO2 VBG pO2 VBG HCO3 VBG Total CO2 VBG O2 Saturation VBG Base Excess Sodium Chloride 110 H Carbon Dioxide 19 L BUN 49 H Creatinine 2.20 H Estimated GFR 23 L Est GFR ( Amer) 27 L Glucose 69 L D POC Glucose 217 H Calcium 8.3 L AST 46 H D NT-Pro-B Natriuret Pep Total Protein 6.1 L Albumin 3.3 L Assessment and Plan *Assessment and plan (1) Pulmonary embolism: Status: Acute Qualifiers: Pulmonary embolism type: single subsegmental (without acute cor pulmonale) Qualified Code(s): I26.93 - Single subsegmental thrombotic pulmonary embolism without acute cor pulmonale Category: Medical Code(s): I26.99 - Other pulmonary embolism without acute cor pulmonale (2) Pneumonia: Status: Acute Qualifiers: Laterality: right Lung location: upper lobe of lung Pneumonia type: due to unspecified organism Qualified Code(s): J18.9 - Pneumonia, unspecified organism Category: Medical Code(s): J18.9 - Pneumonia, unspecified organism (3) Pleural effusion on right: Status: Acute Category: Medical Code(s): J90 - Pleural effusion, not elsewhere classified (4) Acute respiratory failure with hypoxia: Status: Acute Category: Medical Code(s): J96.01 - Acute respiratory failure with hypoxia Plan Ms. Cronin is a 63-year-old female with reported history of CAD CHF 2016 A-fib bioprosthetic mitral valve with chronic endocarditis on daily penicillin as per the patient presented to the ER with worsening respiratory distress and pulmonary was called for further evaluation and management. Greater than 94-[id number]-hakw smoking, using nebulization therapies on as-needed basis at baseline. Not using any oxygen supplementation Afebrile. Hemodynamically stable. CTA upon admission left lower lobe segmental subsegmental pulmonary embolism. Moderate to large right pleural effusion. Right middle and lower lobe patchy airspace disease. The right pleural effusion and right airspace disease relatively new from her most recent CT from 03/05/2024 when she presented to the ER and was transferred to an outside hospital for renal dysfunction Currently receiving vancomycin and cefepime. Recently discharged from hospital for presumed airspace disease and pneumonia from [facility]. Drop in hemoglobin after receiving full dose anticoagulation. Anticoagulation currently on hold. GI following. Chest x-ray from today continue to show right pleural effusion. On room air saturating 88%. Blood cultures no growth. Sputum cultures with gram-positive cocci in chains and gram-negative rods. Currently receiving vancomycin and cefepime. Plan: Oxygen supplementation to maintain O2 saturation around 90% and above, patient tolerating nasal cannula supplementation. Continue vancomycin and cefepime pending culture results and nasal MRSA PCR DuoNebs 4 times daily scheduled Pulmonary embolism likely provoked. Resume anticoagulation pending GI recommendations. Will at least consider diagnostic thoracentesis given relatively recent onset of the noted effusion F/u Echo report
--- NOTE | 2024-03-17 09:58 | XR_ITS ---
FINAL REPORT CLINICAL HISTORY: PNM COMPARISON: 02/19/2024 FINDINGS: CHEST 2 VIEWS PA AND LATERAL The heart is normal in size. Patient is status post median sternotomy. Pacer is identified. There is moderate right effusion, new since prior. There is no pneumothorax. IMPRESSION: New, moderate right effusion. Reviewed, Interpreted and Dictated by Dayday Owens MD Transcribed by Yasmeen López Authenticated and [facility]
--- NOTE | 2024-03-17 10:07 | HMH.PTEV ---
Physical Therapy Evaluation Rehab PT IP Evaluation Start: 03/17/24 08:22 Freq: ONCE Status: Active Protocol: Document 03/17/24 09:38 LUIS ABLERTO (Rec: 03/17/24 10:07 LUIS ALBERTO [id number]) Subjective/History History History Per H&P: Laxmi Cronin is a 63-year-old female with a medical history significant for CAD s/p 2 stents 12/13/2023 , HFrEF 40%, CABG 2015, AICD, A-fib s/p maze and MILLY clip, bioprosthetic mitral valve replacement with chronic endocarditis on penicillin daily (used to follow with ID, lost to follow-up), CKD 3A, insulin-dependent diabetes, hypothyroidism who who presents with several week onset of progressive shortness of breath, nonproductive cough. Patient is not the best historian, unable to tell me when her shortness of breath began getting worse. She states she has baseline dyspnea on exertion. Denies fever/chills, chest pain, upper respiratory symptoms abdominal pain, urinary symptoms. She states that she has felt difficulty breathing since being discharged from [facility] 7 days for acute renal failure, though she does not remember what exactly they did for her there. Workup in the ED significant for heart rate 130 , BNP 3670, and CTA revealing right upper lobe pneumonia with left lower lobe pulmonary embolism. On room air saturating appropriately. Given vancomycin, cefepime, Lasix 40 in the ED. Case discussed with ED provider and decision was made to admit patient for hospital-acquired pneumonia, pulmonary embolism. Subjective Subjective Reports she lives with her daughter in a single-story home. Needed Min A with ADLs and SUP with mobility at baseline. Intermittent use of RW for community distances. Pt has 2 WILLIAM home. New diagnosis of cancer in past 12 No months? Rehab PT IP Eval Objective Appearance Patient Behavior Appropriate,Cooperative Patient Orientation Person,Place Difficulty following instructions none Speech Pattern Clear Ambulation Patient Able to Ambulate Yes Ambulation Observation IP General Gait Pattern Observation Wide Based Gait Ambulation Distance (feet) 20 Ambulation Assistive Device None Ambulation Ability Supervision/Stand by,Contact Guard/Hand Hold Balance Ability to Arise Able, uses arms to help Sitting Balance Steady, safe Standing Balance Steady, wide stance Dynamic Sitting Balance Ability Good Dynamic Standing Balance Ability Good Rehab PT IP prob,goals,plan Problems Date of Evaluation: 03/17/24 Rehab Potential Rehab Potential Innapropriate for Skilled Therapy Discharge Plan PT Discharge Plan Pt safe to d/c home when deemed medically necessary d/t current level of mobility, home set-up, and family support. Pt not appropriate for skilled acute care PT at this time d/t pt?s mobility being at baseline. Recommending PT to address general strength deficits. Eval Complexity Eval Charge Codes 84440 - Moderate Complexity PHYSICIAN CERTIFICATION: I certify the specified therapy services for Laxmi Cronin are required, authorized, and reviewed every 30 days.
--- NOTE | 2024-03-17 10:29 | EXP.CARD.CON ---
History of Present Illness History of Present Illness Consult date: 03/17/24 Requesting physician: Demetri Santoyo Consult reason: shortness of breath Chief complaint: SOA History of present illness: This is a 63-year-old white female presented to the emergency department with complaints of shortness of breath. She has a past medical history of coronary artery disease status post CABG and stenting, AICD, A-fib status post maze and left atrial appendage clip, bioprosthetic mitral valve replacement, chronic endocarditis on penicillin, chronic kidney disease, diabetes, hypertension and hyperlipidemia. The patient states that she has been short of breath for quite some time. She is unable to tell me exactly how long. She states that her shortness of breath has been severe and significantly getting worse. She reports that she was admitted at the [facility] approximately 1 week ago and since she discharged her symptoms continued to worsen. She states that her shortness of breath is associated with a cough and orthopnea. She denies any chest pain or pressure. She denies any lower extremity edema. She denies any fever, chills, nausea, vomiting, diarrhea or PND. The patient states that she has just continued to feel bad and that is why she came to the emergency department. Upon arrival here at [facility] her heart rate was in the 130s to 140s in atrial fibrillation, her BNP was elevated at 3670. Her troponins are negative. She did have a CT of the chest which showed a right upper lobe pneumonia and a left lower lobe PE. She is currently getting IV antibiotics and has been started on Lovenox for anticoagulation. She was also given IV Lasix. This morning she states that her shortness of breath has significantly improved. [facility] Disclaimer: The information contained in this section may have been updated after the patient was seen, as this information can be updated by other users. Medical History (Updated 03/18/24 @ 10:51 by Nataliya Hutchinson APRN) Abnormal echocardiogram Atypical angina Acute respiratory failure with hypoxia Pleural effusion on right Chronic endocarditis Acute on chronic HFrEF (heart failure with reduced ejection fraction) Coronary artery disease Pacemaker at end of battery life Right kidney mass Pancreatic mass Vomiting Dental abscess Pain, dental Hematuria Complication of urostomy Nausea vomiting and diarrhea Hypotension Generalized weakness Hypovolemia E. coli UTI (urinary tract infection) Infection due to extended-spectrum [id number] Klebsiella pneumoniae Yeast infection of the vagina Complicated UTI (urinary tract infection) STACY (acute kidney injury) Septic shock Severe sepsis with acute organ dysfunction Cellulitis Candidiasis Abdominal pannus Nausea & vomiting Presence of urostomy Presence of urostomy Vitamin D deficiency Biventricular cardiac pacemaker in situ Bacterial endocarditis Cardiac arrhythmia Bacteria present Obesity (BMI 30.0-34.9) Gastroenteritis due to norovirus Decreased blood volume Sepsis due to Streptococcus agalactiae Bacteremia Ileostomy in place Pacemaker Bladder cancer Diarrhea Fever UTI (urinary tract infection) Dehydration Diabetes mellitus Renal insufficiency Abscess of skin or subcutaneous tissue Renal insufficiency Valvular heart disease Palpitations Myocardial infarction HTN (hypertension), benign T2DM (type 2 diabetes mellitus) Depression CHF (congestive heart failure) Cancer Arrhythmia Anxiety Encounter for pre-operative cardiovascular clearance PAD (peripheral artery disease) Abnormal ankle brachial index (GOMEZ) PVD (peripheral vascular disease) HHD (hypertensive heart disease) Smoker HLD (hyperlipidemia) Carotid bruit Carotid artery stenosis CAD (coronary artery disease) Surgical History (Updated 03/17/24 @ 10:36 by Nataliya Hutchinson APRN) Status post mitral valve replacement Hx of tonsillectomy History of mitral valve replacement S/P left atrial appendage ligation AICD (automatic cardioverter/defibrillator) present H/O tricuspid valve replacement History of coronary artery bypass graft Family History Other Cancer Diabetes Heart attack Social History (Updated 03/15/24 @ 15:13 by Willa Gates RN) Smoking Status: Current every day smoker tobacco type: cigarettes packs per day: 1 second hand exposure: Yes alcohol intake: never substance use type: marijuana current occupational status: unemployed Travel in the last 8 weeks: None household members: family housing: house number of children: 2 current occupational exposures/hazards: No caffeine: Yes Review of Systems Review of Systems Review of systems:: pertinent systems reviewed and negative unless documented below Constitutional Constitutional: Reports system reviewed and no additional complaints, except as documented, Reports fatigue and Reports lethargy Eyes Eyes: Reports system reviewed and no additional complaints, except as documented ENT Ears, Nose, Mouth, and Throat: Reports system reviewed and no additional complaints, except as documented *Cardiovascular Cardiovascular: Reports system reviewed and no additional complaints, except as documented, Denies chest pain, Reports dyspnea, Reports dyspnea on exertion and Denies leg edema *Respiratory Respiratory: Reports system reviewed and no additional complaints, except as documented, Reports dyspnea and Reports dyspnea on exertion *Gastrointestinal Gastrointestinal: Reports system reviewed and no additional complaints, except as documented *Genitourinary Genitourinary: Reports system reviewed and no additional complaints, except as documented *Musculoskeletal Musculoskeletal: Reports system reviewed and no additional complaints, except as documented Integumentary/Breasts Skin/Breast: Reports system reviewed and no additional complaints, except as documented *Neurologic Neurologic: Reports system reviewed and no additional complaints, except as documented Psychiatric Psychiatric: Reports system reviewed and no additional complaints, except as documented Endocrine Endocrine: Reports system reviewed and no additional complaints, except as documented and Reports fatigue Hematologic/Lymphatic Hematologic/Lymphatic: Reports system reviewed and no additional complaints, except as documented Allergic/Immunologic Allergic/Immunologic: Reports system reviewed and no additional complaints, except as documented Exam Data for Last 24 hours Vital signs and Labs for Last 24 Hours: Temp Pulse Resp BP Pulse Ox O2 Del Method 98 F 116 H 16 116/73 93 L Room Air 03/17/24 08:00 03/17/24 08:00 03/17/24 08:00 03/17/24 08:00 03/17/24 08:00 03/17/24 08:00 Laboratory Results - last 24 hr 03/16/24 10:47: POC Glucose 348 H* 03/16/24 13:25: Hgb 7.4 L, Hct 24.0 L 03/16/24 16:13: POC Glucose 78 03/16/24 21:22: POC Glucose 217 H 03/17/24 05:58: WBC 12.8 H D, RBC 2.64 L, Hgb 7.5 L, Hct 25.1 L, MCV 95.1, MCH 28.4, MCHC 29.9 L, RDW 19.0 H, Plt Count 279, MPV 12.2 H, Neut % (Auto) 80.9 H, Lymph % (Auto) 12.8, [place] % (Auto) 5.1, Eos % (Auto) 0.4, Baso % (Auto) 0.3, Neut # (Auto) 10.3 H, Lymph # (Auto) 1.6, [place] # (Auto) 0.7, Eos # (Auto) 0.1, Baso # (Auto) 0.0, Sodium 139, Potassium 4.0, Chloride 110 H, Carbon Dioxide 19 L, Anion Gap 14.0, BUN 49 H, Creatinine 2.20 H, Estimated Creat Clear 27, Estimated GFR 23 L, Est GFR ( Amer) 27 L, Glucose 69 L D, Calcium 8.3 L, Magnesium 1.9, Total Bilirubin 0.4, AST 46 H D, ALT 25 D, Alkaline Phosphatase 105, Total Protein 6.1 L, Albumin 3.3 L, Globulin 2.8, Albumin/Globulin Ratio 1.2 03/17/24 06:06: POC Glucose 101 I & O for Last 24 hours: Intake & Output 03/14/24 03/15/24 03/16/24 03/17/24 23:59 23:59 23:59 23:59 Intake Total 240 / 440 680 / 1070 390 / 390 Output Total 1225 / 1225 1850 / 1850 0 / 0 Balance -985 / -785 -1170 / -780 390 / 390 Weight 139 lb 3.2 oz 140 lb 8 oz 139 lb 8 oz Microbiology Reports for the Last 24 Hours: Microbiology 03/16/24 16:19 Anus CRE Surveillance Culture - Final 03/16/24 13:19 Sputum - Expectorated Sputum Gram Stain - Final 03/15/24 10:37 Blood Blood Culture - Preliminary NO GROWTH AFTER 24 HOURS 03/15/24 10:35 Blood Blood Culture - Preliminary NO GROWTH AFTER 24 HOURS Narrative: EKG #1 is atrial fibrillation with RVR and a rate of 124 bpm. EKG #2 is atrial fibrillation with RVR and a rate of 142 bpm. Constitutional Constitutional: no acute distress, average body habitus and chronically ill appearing *Routine HEENT Exam Head: Present normocephalic and atraumatic ENT: Present mucous membranes moist *Routine Neck Exam Neck: Present supple, full ROM and normal carotid upstroke; Absent JVD, carotid bruit or lymphadenopathy *Routine Respiratory Exam Respiratory: Present CTA bilaterally, normal respiratory effort, able to speak in complete sentences and symmetric chest movement *Routine Cardiovascular Exam Cardiovascular: Present Normal S1, Normal S2, murmur, tachycardia and irregularly irregular; Absent gallop *Routine Abdominal Exam Abdominal: Present soft and normoactive bowel sounds; Absent tenderness, distended or organomegaly *Routine Extremities Exam Extremities: Present full ROM, pulses intact and normal capillary refill; Absent cyanosis, clubbing or edema *Routine Skin Exam Skin: Present intact and warm; Absent erythema *Routine Neurological Exam Neurological: Present alert, oriented X3 and CN II-XII intact; Absent sensory deficit or motor deficit Routine Psychiatric Exam Psychiatric: Present normal affect Meds Home Medications and Allergies Home Medications ?Medication ?Instructions ?Recorded ?Confirmed ?Type alprazolam 0.5 mg tablet 0.5 mg PO BIDP PRN Anxiety 12/12/23 03/15/24 History cholecalciferol (vitamin D3) 25 25 mcg PO DAILY 12/12/23 03/15/24 History mcg (1,000 unit) tablet citalopram 20 mg tablet 20 mg PO HS 12/12/23 03/15/24 History insulin glargine 100 unit/mL (3 8 unit SQ HS 12/12/23 03/15/24 History mL) subcutaneous pen (Lantus Solostar U-100 Insulin) insulin human U-100 NPH-regulr 6 unit SQ BID 12/12/23 03/15/24 History 70-30 mix 100 unit/mL subcutaneous susp (Novolin 70/30 U-100 Insulin) trazodone 50 mg tablet 50 mg PO HS 12/12/23 03/15/24 History aspirin 81 mg tablet,delayed 81 mg PO DAILY 30 days #30 tabs 12/14/23 03/15/24 Rx release atorvastatin 40 mg tablet 40 mg PO HS 30 days #30 tabs 12/14/23 03/15/24 Rx clopidogrel 75 mg tablet 75 mg PO DAILY 30 days #30 tabs 12/14/23 03/15/24 Rx cariprazine 1.5 mg capsule 1.5 mg PO DAILY 01/23/24 03/15/24 History (Vraylar) dapagliflozin propanediol 10 mg 10 mg PO DAILY #30 tabs 01/23/24 03/15/24 Rx tablet (Farxiga) ropinirole 1 mg tablet 1 mg PO DAILY 01/23/24 03/15/24 History amiodarone 200 mg tablet 200 mg PO DAILY 03/15/24 03/15/24 History penicillin V potassium 250 mg 250 mg PO BID 03/15/24 03/15/24 History tablet New Prescriptions to Start Prescriptions: Allergies Allergy/AdvReac Type Severity Reaction Status Date / Time No Known Allergies Allergy Verified 03/15/24 10:28 Assessment and Plan *Assessment and plan (1) Atrial fibrillation with rapid ventricular response: Status: Acute Category: Medical Code(s): I48.91 - Unspecified atrial fibrillation (2) Pulmonary embolism: Status: Acute Qualifiers: Pulmonary embolism type: single subsegmental (without acute cor pulmonale) Qualified Code(s): I26.93 - Single subsegmental thrombotic pulmonary embolism without acute cor pulmonale Category: Medical Code(s): I26.99 - Other pulmonary embolism without acute cor pulmonale (3) Pneumonia: Status: Acute Qualifiers: Laterality: right Lung location: upper lobe of lung Pneumonia type: due to unspecified organism Qualified Code(s): J18.9 - Pneumonia, unspecified organism Category: Medical Code(s): J18.9 - Pneumonia, unspecified organism (4) CAD (coronary artery disease): Status: Chronic Qualifiers: Associated angina: without angina Coronary Disease-Associated Artery/Lesion type: [place] artery [place] vs. transplanted heart: [place] heart Qualified Code(s): I25.10 - Atherosclerotic heart disease of [place] coronary artery without angina pectoris Category: Medical Code(s): I25.10 - Atherosclerotic heart disease of [place] coronary artery without angina pectoris (5) Tobacco use: Status: Chronic Category: Social Hx Code(s): Z72.0 - Tobacco use (6) Carotid artery stenosis: Status: Chronic Qualifiers: Laterality: bilateral Qualified Code(s): I65.23 - Occlusion and stenosis of bilateral carotid arteries Category: Medical Code(s): I65.29 - Occlusion and stenosis of unspecified carotid artery (7) H/O tricuspid valve replacement: Status: Chronic Category: Surgical Code(s): Z95.2 - Presence of prosthetic heart valve (8) AICD (automatic cardioverter/defibrillator) present: Status: Chronic Category: Surgical Code(s): Z95.810 - Presence of automatic (implantable) cardiac defibrillator (9) S/P left atrial appendage ligation: Status: Chronic Category: Surgical Code(s): Z98.890 - Other specified postprocedural states (10) PAD (peripheral artery disease): Status: Chronic Category: Medical Code(s): I73.9 - Peripheral vascular disease, unspecified (11) H/O tricuspid valve repair: Status: Chronic Category: Surgical Code(s): Z98.890 - Other specified postprocedural states (12) PVD (peripheral vascular disease): Status: Chronic Category: Medical Code(s): I73.9 - Peripheral vascular disease, unspecified (13) T2DM (type 2 diabetes mellitus): Status: Acute Qualifiers: Chronic kidney disease stage: stage 3 (moderate) Chronic kidney disease stage 3 subtype: stage 3a (GFR 45-59) Diabetes mellitus complication detail: with chronic kidney disease Diabetes mellitus complication status: with kidney complications Diabetes mellitus oyst[place] insulin use: with [place] use Qualified Code(s): E11.22 - Type 2 diabetes mellitus with diabetic chronic kidney disease; N18.31 - Chronic kidney disease, stage 3a; Z79.4 - senior living (current) use of insulin Category: Medical Code(s): E11.9 - Type 2 diabetes mellitus without complications (14) Paroxysmal atrial fibrillation: Status: Acute Category: Medical Code(s): I48.0 - Paroxysmal atrial fibrillation (15) CKD (chronic kidney disease): Status: Acute Qualifiers: Chronic kidney disease stage: stage 3 (moderate) Chronic kidney disease stage 3 subtype: stage 3a (GFR 45-59) Qualified Code(s): N18.31 - Chronic kidney disease, stage 3a Category: Medical Code(s): N18.9 - Chronic kidney disease, unspecified (16) Anemia: Status: Acute Qualifiers: Anemia type: unspecified type Qualified Code(s): D64.9 - Anemia, unspecified Category: Medical Code(s): D64.9 - Anemia, unspecified (17) Acute on chronic HFrEF (heart failure with reduced ejection fraction): Status: Acute Category: Medical Code(s): I50.23 - Acute on chronic systolic (congestive) heart failure (18) Chronic endocarditis: Status: Acute Qualifiers: Endocarditis type: infective Infective endocarditis organism: bacterial Qualified Code(s): I33.0 - Acute and subacute infective endocarditis Category: Medical Code(s): I38 - Endocarditis, valve unspecified (19) Status post mitral valve replacement: Status: Acute Category: Surgical Code(s): Z95.2 - Presence of prosthetic heart valve Plan Plan: 1. The patient was admitted to the hospital after presenting to the emergency department with shortness of breath. She is found to have a left lower lobe pulmonary embolus and a right upper lobe pneumonia. She is currently getting IV antibiotics. Pulmonology has been consulted. Will defer. 2. The patient does have an a pulmonary embolus. She has been started on Lovenox. She will need to be switched over to oral anticoagulation prior to discharge. 3. The patient also had an elevated BNP. She is having acute on chronic exacerbation of HFrEF. She was treated with Lasix yesterday. She does have a -1170 mL liter fluid balance overnight. She states her shortness of breath has significantly improved. Continue Farxiga for HFrEF. Will stop Lasix and put her on torsemide 20 mg p.o. daily due to her renal function. 4. The patient does have a history of atrial fibrillation. On admission she was in atrial fibrillation with RVR. Her heart rate still remains elevated today. She remains on amiodarone 200 mg p.o. daily. Will start her on metoprolol to tartrate 25 mg p.o. twice daily for better heart rate control. 5. She is status post maze procedure and left atrial appendage clip in 2022. She does not have to be on long-term anticoagulation for her atrial fibrillation. However, in the setting of her pulmonary embolus she will require anticoagulation for at least 6 months. 6. The patient does have coronary artery disease with recent coronary stenting in December 2023. We can stop aspirin since she will have to go on anticoagulation for the pulmonary embolus. She will need to remain on Plavix 75 mg daily in addition to the oral anticoagulant. 7. The patient is anemic and as mentioned above we will stop her aspirin today. 8. Her blood pressure is well-controlled. 9. Her LDL goal is less than 55. Her LDL in January was 128. She has been started on a statin. Will repeat a lipid panel in the morning. 10. The patient does have a history of infective endocarditis. She was following with infectious disease. She has been on chronic penicillin for the infective endocarditis. It does appear that the patient has been lost to follow-up with infectious disease. She was referred back to infectious disease recently but it does not look like the patient has went to her appointment. Case management is going to help facilitate this referral. 11. An echocardiogram has been obtained to evaluate her LV function. The results are currently pending. 12. The patient is status post AICD placement. 13. The patient does have chronic kidney disease. Her creatinine is stable at 2.2. She does report that she was recently admitted to [facility] for acute renal failure. Her daughters believe that she had some type of dialysis while she was there. We will try to obtain records from her stay at [facility]. 14. Further recommendations will be made pending the patient's response to treatment and the results of her echocardiogram today. Thank you for the opportunity to help dissipate in the care of this patient. All recommendations and orders are per Dr. Fowler. Addendum: Echocardiogram shows: Patient's ejection fraction is down to around 35 to 40%. Her RVSP is elevated. It does appear that her gradients on her valves are slightly more elevated than her last echocardiogram. She also has a new apical wall motion abnormality noted. The patient will likely need to undergo repeat left cardiac catheterization this admission due to the new apical wall motion abnormality to evaluate her coronary arteries and recent stenting. Will discuss this with the patient this afternoon. She will likely need an outpatient BROCK to reevaluate her valve gradients as well. Will transfuse 1 unit of packed red blood cells today prior to undergoing left cardiac catheterization tomorrow due to anemia with a hemoglobin of 7.5.
[2024-03-17] MEDS: TORSEMIDE 20MG TABLET 20 MG PO (13:02)
[2024-03-17] MEDS: METOPROLOL TARTRATE 25MG TABLET 25 MG PO ×2 (13:02→21:21)
--- NOTE | 2024-03-17 13:20 | SW/DCPLANNER ---
Addendum entered by Betsey Nicholson 03/20/24 12:42: [facility] and they are able to accept patient and will start services on Saturday. Addendum entered by Betsey Nicholson 03/20/24 12:08: Faxed over patients papers to [facility]. Will update if [facility] accepts patient. Addendum entered by Marsha Sims 03/19/24 11:40: Patient is now agreeable w/ home health services and prefers to use [facility]. I will set up services once patient is medically stable for discharge. Per MD patient may be ready for discharge tomorrow. Addendum entered by Marsha Sims 03/19/24 08:33: Patient continues to refuse home health services after speaking w/ family yesterday. I did request that patient's nurse (Armida) contact me if patient's family is at bedside today. Addendum entered by Marsha Sims 03/18/24 12:02: Patient continues to refuse home health services at this time. Original Note: Therapy recommended home health when patient was discharged. At this time patient refuses any home health services. REGULO Ge
[2024-03-17 14:22] LABS: MRSA DNA PCR Negative (Negative)
--- NOTE | 2024-03-17 15:46 | P.PN_ITS ---
Subjective *Date: 03/17/24 *Time: 15:46 Interval history: Shortness of breath has improved. She has been seen by cardiology and will receive 1 unit packed red cells tonight with a hemoglobin of 7.5. Plan for left cardiac catheterization tomorrow. Exam Data for Last 24 hours Vital signs and Labs for Last 24 Hours: Temp Pulse Resp BP Pulse Ox O2 Del Method 98.1 F 115 H 17 118/74 94 L Room Air 03/17/24 12:00 03/17/24 12:00 03/17/24 12:00 03/17/24 12:00 03/17/24 12:00 03/17/24 12:33 Laboratory Results - last 24 hr 03/16/24 08:48: MRSA (PCR) Negative 03/16/24 16:13: POC Glucose 78 03/16/24 21:22: POC Glucose 217 H 03/17/24 05:58: WBC 12.8 H D, RBC 2.64 L, Hgb 7.5 L, Hct 25.1 L, MCV 95.1, MCH 28.4, MCHC 29.9 L, RDW 19.0 H, Plt Count 279, MPV 12.2 H, Neut % (Auto) 80.9 H, Lymph % (Auto) 12.8, [place] % (Auto) 5.1, Eos % (Auto) 0.4, Baso % (Auto) 0.3, Neut # (Auto) 10.3 H, Lymph # (Auto) 1.6, [place] # (Auto) 0.7, Eos # (Auto) 0.1, Baso # (Auto) 0.0, Sodium 139, Potassium 4.0, Chloride 110 H, Carbon Dioxide 19 L, Anion Gap 14.0, BUN 49 H, Creatinine 2.20 H, Estimated Creat Clear 27, Estimated GFR 23 L, Est GFR ( Amer) 27 L, Glucose 69 L D, Calcium 8.3 L, Magnesium 1.9, Total Bilirubin 0.4, AST 46 H D, ALT 25 D, Alkaline Phosphatase 105, Total Protein 6.1 L, Albumin 3.3 L, Globulin 2.8, Albumin/Globulin Ratio 1.2 03/17/24 06:06: POC Glucose 101 I & O for Last 24 hours: Intake & Output 03/15/24 03/16/24 03/17/2425 11:59 11:59 11:59 11:59 Intake Total 920 390 Output Total 0229 8090 Balance -905 -860 Weight 62.142 kg 63.73 kg 63.276 kg 63.27 kg Microbiology Reports for the Last 24 Hours: Microbiology 03/15/24 10:37 Blood Blood Culture - Preliminary NO GROWTH AFTER 48 HOURS 03/15/24 10:35 Blood Blood Culture - Preliminary NO GROWTH AFTER 48 HOURS 03/16/24 16:19 Anus CRE Surveillance Culture - Final 03/16/24 13:19 Sputum - Expectorated Sputum Gram Stain - Final Constitutional Constitutional: no acute distress and cooperative *Routine HEENT Exam Head: Present normocephalic and atraumatic *Routine Respiratory Exam Respiratory: Present rhonchi and wheezes Comments: O2 dependent, interval improvement *Routine Abdominal Exam Abdominal: Present soft and distended (Mild soft distention); Absent tenderness *Routine Skin Exam Skin: Present intact *Routine Neurological Exam Neurological: Present alert and oriented X3 Assessment and Plan *Assessment and plan (1) Anemia: Status: Acute Qualifiers: Anemia type: unspecified type Qualified Code(s): D64.9 - Anemia, unspecified Category: Medical Code(s): D64.9 - Anemia, unspecified (2) Pulmonary embolism: Status: Acute Qualifiers: Pulmonary embolism type: single subsegmental (without acute cor pulmonale) Qualified Code(s): I26.93 - Single subsegmental thrombotic pulmonary embolism without acute cor pulmonale Category: Medical Code(s): I26.99 - Other pulmonary embolism without acute cor pulmonale Plan 1. Anemia Patient on Plavix and aspirin at home, denies alcohol or NSAID use. Lovenox started for PE. Aspirin has been held. Interval hemoglobin up to 7.5. Has been seen by cardiology who are planning left cardiac catheterization scheduled for tomorrow. She will receive 1 unit packed red cells tonight prior to procedure tomorrow. Will await cardiac clearance prior to panendoscopy. Discussed with patient who is agreeable to plan
[2024-03-17] MEDS: VANCOMYCIN HCL 1,000 MG in 0.9 % SODIUM CHLORIDE 250 ML 125 MG IV (17:04)
[2024-03-17 17:22] LABS: POC Glucose,Bedside 85 (70-110)
--- NOTE | 2024-03-17 17:28 | EXP.ACUTE.PN ---
Subjective *Date: 03/17/24 *Time: 22:24 Interval history: Patient stable on room air. Denies any chest pain. Crackly on exam. Family at bedside, updated of plan. Patient pleasant on interview. Afebrile overnight. Medical Exam Vital signs and Labs for Last 24 Hours: Vital Signs Temp Pulse Pulse Resp BP Pulse Ox O2 Del Method 03/17/24 16:00 98.8 F 78 17 130/73 100 03/17/24 16:00 90 03/17/24 12:33 Room Air 03/17/24 12:00 110 H 03/17/24 12:00 98.1 F 115 H 17 118/74 94 L 03/17/24 11:00 Room Air 03/17/24 09:00 Room Air 03/17/24 08:00 90 03/17/24 08:00 Room Air 03/17/24 08:00 98 F 116 H 16 116/73 93 L 03/17/24 07:00 Room Air 03/17/24 05:00 Room Air 03/17/24 04:00 110 H 03/17/24 04:00 97.5 F L 85 16 115/62 92 L Room Air 03/17/24 03:00 Room Air 03/17/24 01:00 Room Air 03/17/24 00:00 95 H 03/16/24 23:00 Room Air, Nasal Cannula 03/16/24 21:00 Room Air 03/16/24 20:00 Room Air 03/16/24 20:00 110 H 03/16/24 20:00 98.2 F 131 H 16 109/68 L 92 L Room Air 03/16/24 18:46 Room Air Intake and Output 03/17/24 03/17/24 03/17/24 07:59 15:59 23:59 Intake Total 390 / 390 Output Total 0 / 400 400 / 400 Balance 390 / -10 -400 / -10 Intake: Intake, Oral Amount 240 / 240 Intake, Total IV Amount 150 / 150 Cefepime HCl 1 gm In 0.9 % 50 / 50 Sodium Chloride 50 ml @ 100 mls /hr IV Q12H [facility] Rx#:[id number] Iron Sucrose Complex 200 mg In 100 / 100 0.9 % Sodium Chloride 100 ml @ 220 mls/hr IV ONCE ONE Rx#: [id number] Output: Output, Urine Amount 0 / 400 400 / 400 Other: Number of Unmeasured Voids 1 1 Weight 63.276 kg 63.27 kg Patient Weight 03/17/24 23:59 Weight 63.27 kg Laboratory Results - last 24 hr 03/16/24 08:48: MRSA (PCR) Negative 03/16/24 21:22: POC Glucose 217 H 03/17/24 05:58: WBC 12.8 H D, RBC 2.64 L, Hgb 7.5 L, Hct 25.1 L, MCV 95.1, MCH 28.4, MCHC 29.9 L, RDW 19.0 H, Plt Count 279, MPV 12.2 H, Neut % (Auto) 80.9 H, Lymph % (Auto) 12.8, [place] % (Auto) 5.1, Eos % (Auto) 0.4, Baso % (Auto) 0.3, Neut # (Auto) 10.3 H, Lymph # (Auto) 1.6, [place] # (Auto) 0.7, Eos # (Auto) 0.1, Baso # (Auto) 0.0, Sodium 139, Potassium 4.0, Chloride 110 H, Carbon Dioxide 19 L, Anion Gap 14.0, BUN 49 H, Creatinine 2.20 H, Estimated Creat Clear 27, Estimated GFR 23 L, Est GFR ( Amer) 27 L, Glucose 69 L D, Calcium 8.3 L, Magnesium 1.9, Total Bilirubin 0.4, AST 46 H D, ALT 25 D, Alkaline Phosphatase 105, Total Protein 6.1 L, Albumin 3.3 L, Globulin 2.8, Albumin/Globulin Ratio 1.2 03/17/24 06:06: POC Glucose 101 03/17/24 15:28: Blood Type O Positive, Antibody Screen Positive, Crossmatch (AHG) See Detail 03/17/24 17:13: POC Glucose 85 I & O for Labs for Last 24 Hours: Intake & Output 03/14/24 03/15/24 03/16/24 03/17/24 23:59 23:59 23:59 23:59 Intake Total 240 / 440 680 / 1070 390 / 390 Output Total 1225 / 1225 1850 / 1850 400 / 400 Balance -985 / -785 -1170 / -780 -10 / -10 Weight 63.14 kg 63.73 kg 63.27 kg Microbiology Reports for the Last 24 Hours: Microbiology 03/15/24 10:37 Blood Blood Culture - Preliminary NO GROWTH AFTER 48 HOURS 03/15/24 10:35 Blood Blood Culture - Preliminary NO GROWTH AFTER 48 HOURS 03/16/24 16:19 Anus CRE Surveillance Culture - Final 03/16/24 13:19 Sputum - Expectorated Sputum Gram Stain - Final Constitutional: Present average body habitus, chronically ill appearing and cooperative Head: Present atraumatic and normocephalic ENT: Present normal exam Neck: Present normal inspection Respiratory: Present crackles and normal respiratory effort; Absent rhonchi or wheezes Cardiac: Present Reg Rate and Rhythm GI: Present soft and normal bowel sounds; Absent distention or tenderness Comments:: Urostomy in right lower abdomen Extremities: Present normal inspection and full ROM; Absent edema Skin: Present intact; Absent erythema Neuro: Present Grossly Intact, alert, awake and moves all extremities Comment:: Oriented to self and place. At baseline Assessment and Plan *Assessment and plan (1) Pneumonia: Status: Acute Qualifiers: Laterality: right Lung location: upper lobe of lung Pneumonia type: due to unspecified organism Qualified Code(s): J18.9 - Pneumonia, unspecified organism Category: Medical Code(s): J18.9 - Pneumonia, unspecified organism (2) Pulmonary embolism: Status: Acute Qualifiers: Pulmonary embolism type: single subsegmental (without acute cor pulmonale) Qualified Code(s): I26.93 - Single subsegmental thrombotic pulmonary embolism without acute cor pulmonale Category: Medical Code(s): I26.99 - Other pulmonary embolism without acute cor pulmonale (3) Status post mitral valve replacement: Status: Acute Category: Surgical Code(s): Z95.2 - Presence of prosthetic heart valve (4) Chronic endocarditis: Status: Acute Qualifiers: Endocarditis type: infective Infective endocarditis organism: bacterial Qualified Code(s): I33.0 - Acute and subacute infective endocarditis Category: Medical Code(s): I38 - Endocarditis, valve unspecified (5) Acute on chronic HFrEF (heart failure with reduced ejection fraction): Status: Acute Category: Medical Code(s): I50.23 - Acute on chronic systolic (congestive) heart failure (6) Anemia: Status: Acute Qualifiers: Anemia type: unspecified type Qualified Code(s): D64.9 - Anemia, unspecified Category: Medical Code(s): D64.9 - Anemia, unspecified (7) T2DM (type 2 diabetes mellitus): Status: Acute Qualifiers: Diabetes mellitus mcfp insulin use: with bed bug 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 use Diabetes mellitus complication status: with kidney complications Diabetes mellitus complication detail: with chronic kidney disease Chronic kidney disease stage: stage 3 (moderate) Chronic kidney disease stage 3 subtype: stage 3a (GFR 45-59) Qualified Code(s): E11.22 - Type 2 diabetes mellitus with diabetic chronic kidney disease; N18.31 - Chronic kidney disease, stage 3a; Z79.4 - alf (current) use of insulin Category: Medical Code(s): E11.9 - Type 2 diabetes mellitus without complications (8) CAD (coronary artery disease): Status: Acute Qualifiers: Coronary Disease-Associated Artery/Lesion type: [place] artery Category: Medical Code(s): I25.10 - Atherosclerotic heart disease of [place] coronary artery without angina pectoris (9) Paroxysmal atrial fibrillation: Status: Acute Category: Medical Code(s): I48.0 - Paroxysmal atrial fibrillation Plan PositionVermela Cronin is a 63-year-old female with a medical history significant for CAD s/p 2 stents 12/13/2023, HFrEF 40%, CABG 2015, AICD, A-fib s/p maze and MILLY clip, bioprosthetic mitral valve replacement with chronic endocarditis on penicillin daily (used to follow with ID, lost to follow-up), CKD 3A, insulin-dependent diabetes who who presents with several week onset of progressive shortness of breath, nonproductive cough. Patient is not the best historian, unable to tell me when her shortness of breath began getting worse. She states she has baseline dyspnea on exertion. Denies fever/chills, chest pain, upper respiratory symptoms abdominal pain, urinary symptoms. She states that she has felt difficulty breathing since being discharged from [facility] 7 days for acute renal failure, though she does not remember what exactly they did for her there. Workup in the ED significant for heart rate 130, BNP 3670, and CTA revealing right upper lobe pneumonia with left lower lobe pulmonary embolism. On room air saturating appropriately. Given vancomycin, cefepime, Lasix 40 in the ED. Case discussed with ED provider and decision was made to admit patient for hospital-acquired pneumonia, pulmonary embolism. Hemoglobin stable today at 7.5. Cardiology and GI assisting with care along with pulmonology. With cardiology. Continues to require inpatient management. Problems addressed as follows: #Suspected hospital-acquired pneumonia #Right pleural effusion ? Discharged from [facility] about 7 days ago for acute renal failure, fecal disimpaction. Reviewed records obtained today, received bicarb drip with gradual improvement in kidney function. No dialysis performed. ? Progressive shortness of breath since then, CTA revealed right upper lobe pneumonia with left lower lobe pulmonary embolism. -Heart rate better today. Continue broad-spectrum antibiotics with vancomycin and cefepime for 7 days. On room air today. - Follow-up sputum, blood cultures. Follow-up MRSA nares screen. ? Pulmonology consulted, per their documentation recommends DuoNebs 4 times a day scheduled. Will consider diagnostic thoracentesis. Further determination pending cardiology evaluation. #Pulmonary embolism, left lower lobe Acute on chronic heart failure with reduced ejection fraction ? CTA revealed LLL PE. Heart rate improved in the lower 110s. On room air. Appears comfortable. - Discussed case with cardiology, echo shows reduced ejection fraction. Down from last imaging. Recommend left heart cath in the morning. Will also transfuse 1 unit to increase hemoglobin prior to stress of left heart cath. Goal hemoglobin greater than 8. ? Continue therapeutic Lovenox for now -Repeat CBC, CMP, magnesium ordered for the morning. ? Cardiology consulted, would appreciate recommendations on DAPT and NOAC combined with possible bleeding. Recent stent placement December 2023 in the setting of STEMI. #Acute on chronic anemia ?No active sign of bleeding. BUN 49, creatinine 2.2, hemoglobin stable at 7.5. Transfusing as above. White count 12.8. ? Patient has multiple comorbidities, high risk for readmission and possible bleeding. Will have GI evaluate patient before DC. ? Discussed case with GI, given patient's anemia, will await cardiac clearance prior to panendoscopy. ? Iron studies low normal in February 2024. Folate also low. ? Ordered Venofer x 1. Will need ferrous sulfate on discharge. ? Follow-up blood cultures in the setting of chronic endocarditis. #Type 2 diabetes ? Hemoglobin A1c 6.8 in early February 2024. ? LDSSI, ACHS glucose checks. ? Lantus to 20 units nightly due to hyperglycemia. #CKD stage III ? Stable. Continue monitor Full code DVT prophylaxis: Therapeutic Lovenox as above N.p.o. at midnight, diabetic diet
[2024-03-17] MEDS: IPRATROPIUM/ALBUTEROL 3 ML NEB IH ×2 (18:14→23:14)
--- NOTE | 2024-03-17 18:56 | PC.NURSE ---
MD notified of mag level due to electrolyte protocol, IV mag on hold per MD due to creatinine clearance.
[2024-03-17 20:56] LABS: POC Glucose,Bedside 82 (70-110)
[2024-03-17 21:18] LABS: POC Glucose,Bedside 72 (70-110)
[2024-03-17] MEDS: ENOXAPARIN 80MG/0.8ML SYRINGE 65 MG SUBCUT (21:20)
[2024-03-17] MEDS: INSULIN GLARGINE 100 UNITS/ML 3ML FLEXPEN 20 UNIT SUBCUT (21:20)
[2024-03-17] MEDS: CITALOPRAM 20MG TABLET 20 MG PO (21:21)
[2024-03-17] MEDS: ROPINIROLE 1MG TABLET 1 MG PO (21:21)
[2024-03-17] MEDS: TRAZODONE 50MG TABLET 50 MG PO (21:21)
[2024-03-17] MEDS: ATORVASTATIN 40MG TABLET 40 MG PO (21:21)
[2024-03-18] VITALS (32 sets, daily range): BP systolic 87–127; BP diastolic 54–77; PULSE 60–117; RESP 15–18; TEMP 36.4–36.9; O2SAT 93–100; BMI 24.7
--- NOTE | 2024-03-18 04:18 | PC.NURSE ---
Addendum entered by Viviana Marie RN 03/18/24 06:37: Notified by lab of critical glucose of 45. Administered OJ and recheck at 128. LYLE Loyola notified Original Note: Pt remains A/O X 4. She denied pain or discomfort this shift but did report feeling SOB at times. Pt with 02 on at 2 liters/nc maintaining sats 97-98% throughout the night. Pt has MOLD FINISHER cough at times. Assisted pt with changing urostomy appliance due to leaking. She uses her supplies from home. She has tolerated full liquid diet but has been NPO since MN. Still awaiting blood to be delivered from blood bank in [place]. Pt in A fib on tele. Still no BM to obtain stool specimen. FSBS 82 at 9pm
[2024-03-18 05:45] LABS: POC Glucose,Bedside 67 (70-110)
[2024-03-18] MEDS: CEFEPIME HCL 1 GM in 0.9 % SODIUM CHLORIDE 50 ML IV ×2 (06:04→18:01)
[2024-03-18 06:18] LABS: Basophils % 0.3 % (0.1-2.0); Eosinophils # 0.2 K/mm3 (0.0-0.4); Eosinophils % 1.7 % (0.1-12.0); Hematocrit 28.6 % (37.0-47.0); Lymphocytes # 1.9 K/mm3 (0.7-4.5); Mean Corpuscular HGB Conc 30.4 g/dL (31.8-35.4); Mean Platelet Volume 11.8 fl (7.4-10.4); Monocytes # 0.6 K/mm3 (0.1-1.0); Monocytes % 5.4 % (1.7-9.3); Neutrophils % 76.1 % (37.0-80.0); Platelet Count 362 K/mm3 (142-424); Red Blood Count 3.11 M/mm3 (4.20-5.40); Red Cell Distribution Width 18.4 % (11.5-17.5); White Blood Count 11.9 K/mm3 (4.8-10.8)
[2024-03-18] MEDS: IPRATROPIUM/ALBUTEROL 3 ML NEB IH ×2 (06:21→13:04)
[2024-03-18 06:24] LABS: Albumin Level 4.1 g/dl (3.5-5.0); Chloride 105 mmol/L (98-107); Potassium 3.7 mmoL/L (3.5-5.1); Sodium 141 mmol/L (136-145)
[2024-03-18 06:26] LABS: Alanine Aminotransferase 24 U/L (12-78); Blood Urea Nitrogen 48 mg/dl (7-17); Creatinine Clearance Estimated 24 mL/min (50-200); Estimated Glomerular Filt Rate 22 ml/min (>60); GFR (African American) 26 ML/MIN (>60)
[2024-03-18 06:27] LABS: Albumin/Globulin Ratio 1.6 (1.1-1.8); Alkaline Phosphatase 91 U/L (38-126); Anion Gap 14.7 mEq/L (5-15); Aspartate Amino Transferase 28 U/L (14-36); Bilirubin,Total 0.4 mg/dl (0.2-1.3); Calcium 8.8 mg/dl (8.4-10.2); Carbon Dioxide 25 mmol/L (22.0-30.0); Globulin 2.5 g/dL (1.3-3.2); Magnesium 1.8 mg/dl (1.6-2.3); Total Protein,Serum 6.6 g/dl (6.3-8.2)
[2024-03-18 06:30] LABS: Glucose 45 mg/dl (74-100)
[2024-03-18 06:31] LABS: Hemoglobin 8.8 g/dL (12.2-16.2)
[2024-03-18 07:11] LABS: Chol/HDL Ratio 3.9 (1-3.5); Cholesterol 118 mg/dl (140-200); HDL Cholesterol 30 mg/dl (40-60); Triglycerides 135 mg/dl (30-150); VLDL Cholesterol 27 mg/dL (0-40)
[2024-03-18 07:13] LABS: POC Glucose,Bedside 128 (70-110)
--- NOTE | 2024-03-18 07:17 | IR_ITS ---
APPROVED REPORT Patient Location: Inpatient Head Of Merchandise Buying: JEREMY Keane RT (R) PROCEDURES Selective coronary angiogram Selective engagement of the saphenous vein graft to the circumflex artery Selective engagement saphenous vein graft to the LAD Intravascular ultrasound to the saphenous vein graft to the LAD Drug-eluting stent deployment to the saphenous vein graft supplying the LAD INDICATION Coronary artery disease, History of coronary bypass surgery, New onset regional wall motion abnormality, Interval decline in ejection fraction, Severe stenosis in the saphenous vein graft supplying the LAD Informed consent was obtained prior to the procedure. COMPLICATIONS None Estimated Blood Loss: Less than 10 mls TECHNIQUE One percent lidocaine used to anesthetize the right anterior aspect of the wrist. The right radial artery was accessed via the Seldinger technique. A 6 [place] sheath was placed in the right radial artery. 2.5 mg of Verapamil, 800 mcg of nitroglycerin, 1mg Lidocaine and 5000 U Heparin were given through the arterial sheath. A 6 [place] JL 3 guide catheter was used to perform left coronary artery angiography as well as selective engagement of the saphenous vein graft supplying the circumflex artery and LAD. Given the anterior wall regional defect and the angiographically ambiguous nature of the vein graft supplying the LAD it was decided to perform intravascular ultrasound. Therapeutic Was administered and a Choice PT extra-support wire was placed into the saphenous vein graft supplying the LAD. Intravascular ultrasound probe was advanced which demonstrated an MLA slightly above 2.0 mm???. Because of this a 3.5 x 12 mm [place] frontier stent was deployed at 18 alexus reducing the stenosis. Dog boning affect still occurred therefore 3.5 x 8 mm noncompliant balloon was placed in the area of interest and deployed at 24 alexus to post dilate. Excellent angiograph results were obtained at the end the procedure the apparatus was removed the sheath was removed and hemostasis was achieved and TR band patient was transferred to the postop putting in stable condition ANGIOGRAPHIC RESULTS The left main artery Has a distal 50 to 60% stenosis The left anterior descending artery Is proximally patent and then occluded at mid vessel The circumflex artery Has proximal 50 and 70% stenosis first obtuse marginal artery has proximal 70% stenosis while the terminal obtuse marginal artery has proximal 80 to 90% stenosis along a tortuous bend in an area that 2 mm in diameter The right coronary artery Known to be occluded therefore not engaged The HOPPER ventriculogram reveals Not performed The left ventricular end-diastolic pressure Not measured There is a solitary saphenous vein graft which immediately bifurcates into a widely patent limb supplying the circumflex artery as well as a limb supplying the LAD. The LAD graft has an ostial severe stenosis as proven by IVUS IMPRESSION Severe disease in the saphenous vein graft limb supplying the LAD Successful stenting of the saphenous vein graft severe disease and was to 0% with 1 drug-eluting stent PLAN 1. Dual antiplatelet therapy 2. Cardiac rehabilitation 3. Consider checking erythropoietin levels and possibly administering erythropoietin on a regular basis in order to combat anemia 4. Check iron studies and treat accordingly with IV iron if indicated 5. LDL less than 55 to achieve that high intensity statin 6. Maximize antianginal medications Electronically signed by : Mehul Beard MD 03/18/2024 14:43:01
[2024-03-18 07:22] LABS: Direct LDL Cholesterol 67.14 mg/dL (100-129)
--- NOTE | 2024-03-18 08:59 | P.PN_ITS ---
Subjective *Date: 03/18/24 *Time: 08:59 Medical Exam Vital signs and Labs for Last 24 Hours: Vital Signs Temp Pulse Pulse Resp BP Pulse Ox O2 Del Method 03/18/24 06:56 Nasal Cannula 03/18/24 06:22 92 H 03/18/24 06:22 98 H 03/18/24 06:22 95 Nasal Cannula 03/18/24 05:00 Nasal Cannula 03/18/24 04:00 97.8 F 80 16 112/66 94 L Nasal Cannula 03/18/24 04:00 90 03/18/24 03:00 Nasal Cannula 03/18/24 01:00 Nasal Cannula 03/18/24 00:00 80 03/18/24 00:00 98.4 F 80 16 109/62 L 97 Nasal Cannula 03/17/24 23:57 72 03/17/24 23:00 Nasal Cannula 03/17/24 21:00 Nasal Cannula 03/17/24 20:00 90 03/17/24 20:00 98 Nasal Cannula 03/17/24 20:00 97.8 F 110 H 16 114/71 98 BiPAP 03/17/24 18:22 Nasal Cannula 03/17/24 18:20 77 03/17/24 17:00 Nasal Cannula 03/17/24 16:00 98.8 F 78 17 130/73 100 03/17/24 16:00 90 03/17/24 15:00 Nasal Cannula 03/17/24 12:33 Room Air 03/17/24 12:00 110 H 03/17/24 12:00 98.1 F 115 H 17 118/74 94 L 03/17/24 11:00 Room Air 03/17/24 09:00 Room Air O2 Flow Rate 03/18/24 06:56 2 03/18/24 06:22 03/18/24 06:22 03/18/24 06:22 2 03/18/24 05:00 2 03/18/24 04:00 2 03/18/24 04:00 03/18/24 03:00 2 03/18/24 01:00 2 03/18/24 00:00 03/18/24 00:00 2 03/17/24 23:57 03/17/24 23:00 2 03/17/24 21:00 2 03/17/24 20:00 03/17/24 20:00 2 03/17/24 20:00 2 03/17/24 18:22 2 03/17/24 18:20 03/17/24 17:00 2 03/17/24 16:00 03/17/24 16:00 03/17/24 15:00 2 03/17/24 12:33 03/17/24 12:00 03/17/24 12:00 03/17/24 11:00 03/17/24 09:00 Intake and Output 03/17/24 03/18/24 03/18/24 23:59 07:59 15:59 Intake Total 730 / 1120 Output Total 650 / 1350 1000 / 1000 Balance 80 / -230 -1000 / -1000 Intake: Intake, Oral Amount 480 / 720 Intake, Total IV Amount 250 / 400 Vancomycin HCl 1,000 mg In 0.9 250 / 250 % Sodium Chloride 250 ml @ 125 mls/hr IV Q48H [facility] Rx#:[id number] Output: Output, Urine Amount 650 / 1350 1000 / 1000 Other: Number of Unmeasured Voids 1 Weight 59.375 kg Patient Weight 03/18/24 23:59 Weight 59.375 kg Laboratory Results - last 24 hr 03/16/24 08:48: MRSA (PCR) Negative 03/17/24 15:28: Blood Type O Positive, Antibody Screen Positive, Antibody Identification Anti-E, Crossmatch (AHG) See Detail 03/17/24 17:13: POC Glucose 85 03/17/24 20:47: POC Glucose 82 03/17/24 21:10: POC Glucose 72 03/18/24 05:27: POC Glucose 67 L 03/18/24 05:40: WBC 11.9 H, RBC 3.11 L, Hgb 8.8 L D, Hct 28.6 L, MCV 92.0, MCH 28.0, MCHC 30.4 L, RDW 18.4 H, Plt Count 362 D, MPV 11.8 H, Neut % (Auto) 76.1, Lymph % (Auto) 16.0, [place] % (Auto) 5.4, Eos % (Auto) 1.7, Baso % (Auto) 0.3, Neut # (Auto) 9.0 H, Lymph # (Auto) 1.9, [place] # (Auto) 0.6, Eos # (Auto) 0.2, Baso # (Auto) 0.0, Sodium 141, Potassium 3.7, Chloride 105, Carbon Dioxide 25, Anion Gap 14.7, BUN 48 H, Creatinine 2.30 H, Estimated Creat Clear 24, Estimated GFR 22 L, Est GFR ( Amer) 26 L, Glucose 45 L* D, Calcium 8.8, Magnesium 1.8, Total Bilirubin 0.4, AST 28 D, ALT 24, Alkaline Phosphatase 91, Total Protein 6.6, Albumin 4.1 D, Globulin 2.5, Albumin/Globulin Ratio 1.6, Triglycerides 135, Cholesterol 118 L, LDL Cholesterol Direct 67.14 L, VLDL Cholesterol 27, HDL Cholesterol 30 L, Cholesterol/HDL Ratio 3.9 H 03/18/24 06:36: POC Glucose 128 H I & O for Labs for Last 24 Hours: Intake & Output 03/15/24 03/16/24 03/17/24 03/18/24 23:59 23:59 23:59 23:59 Intake Total 240 / 440 680 / 1070 1120 / 1120 Output Total 1225 / 1225 1850 / 1850 650 / 1350 1000 / 1000 Balance -985 / -785 -1170 / -780 470 / -230 -1000 / -1000 Weight 63.14 kg 63.73 kg 63.27 kg 59.375 kg Microbiology Reports for the Last 24 Hours: Microbiology 03/15/24 10:37 Blood Blood Culture - Preliminary NO GROWTH AFTER 48 HOURS 03/15/24 10:35 Blood Blood Culture - Preliminary NO GROWTH AFTER 48 HOURS 03/16/24 16:19 Anus CRE Surveillance Culture - Final The patient's infection will respond to the chosen ABx?: Yes Is the patient receiving the right drug, dose, and route?: Yes Could a more targeted ABx be ordered?: No (WBC SLIGHTLY ELEVATED, AFEBRILE, CONT. CURRENT ABX.)
--- NOTE | 2024-03-18 09:40 | P.PN_ITS ---
Subjective *Date: 03/18/24 *Time: 11:54 Interval history: No acute respiratory vents overnight. Patient denies any new respiratory complaints. Pulmonology Exam Inpatient Vital signs and Labs for Last 24 Hours: Temp Pulse Resp BP Pulse Ox O2 Del Method O2 Flow Rate 98.0 F 96 H 16 91/63 L 97 Room Air 2 03/18/24 08:00 03/18/24 08:00 03/18/24 08:00 03/18/24 08:00 03/18/24 08:00 03/18/24 08:00 03/18/24 06:56 Laboratory Results - last 24 hr 03/16/24 08:48: MRSA (PCR) Negative 03/17/24 15:28: Blood Type O Positive, Antibody Screen Positive, Antibody Identification Anti-E, Crossmatch (AHG) See Detail 03/17/24 17:13: POC Glucose 85 03/17/24 20:47: POC Glucose 82 03/17/24 21:10: POC Glucose 72 03/18/24 05:27: POC Glucose 67 L 03/18/24 05:40: WBC 11.9 H, RBC 3.11 L, Hgb 8.8 L D, Hct 28.6 L, MCV 92.0, MCH 28.0, MCHC 30.4 L, RDW 18.4 H, Plt Count 362 D, MPV 11.8 H, Neut % (Auto) 76.1, Lymph % (Auto) 16.0, [place] % (Auto) 5.4, Eos % (Auto) 1.7, Baso % (Auto) 0.3, Neut # (Auto) 9.0 H, Lymph # (Auto) 1.9, [place] # (Auto) 0.6, Eos # (Auto) 0.2, Baso # (Auto) 0.0, Sodium 141, Potassium 3.7, Chloride 105, Carbon Dioxide 25, Anion Gap 14.7, BUN 48 H, Creatinine 2.30 H, Estimated Creat Clear 24, Estimated GFR 22 L, Est GFR ( Amer) 26 L, Glucose 45 L* D, Calcium 8.8, Magnesium 1.8, Total Bilirubin 0.4, AST 28 D, ALT 24, Alkaline Phosphatase 91, Total Protein 6.6, Albumin 4.1 D, Globulin 2.5, Albumin/Globulin Ratio 1.6, Triglycerides 135, Cholesterol 118 L, LDL Cholesterol Direct 67.14 L, VLDL Cholesterol 27, HDL Cholesterol 30 L, Cholesterol/HDL Ratio 3.9 H 03/18/24 06:36: POC Glucose 128 H Temp Pulse Resp BP Pulse Ox O2 Del Method 98 F 116 H 16 116/73 93 L Room Air 03/17/24 08:00 03/17/24 08:00 03/17/24 08:00 03/17/24 08:00 03/17/24 08:00 03/17/24 08:00 Laboratory Results - last 24 hr 03/16/24 10:47: POC Glucose 348 H* 03/16/24 13:25: Hgb 7.4 L, Hct 24.0 L 03/16/24 16:13: POC Glucose 78 03/16/24 21:22: POC Glucose 217 H 03/17/24 05:58: WBC 12.8 H D, RBC 2.64 L, Hgb 7.5 L, Hct 25.1 L, MCV 95.1, MCH 28.4, MCHC 29.9 L, RDW 19.0 H, Plt Count 279, MPV 12.2 H, Neut % (Auto) 80.9 H, Lymph % (Auto) 12.8, [place] % (Auto) 5.1, Eos % (Auto) 0.4, Baso % (Auto) 0.3, Neut # (Auto) 10.3 H, Lymph # (Auto) 1.6, [place] # (Auto) 0.7, Eos # (Auto) 0.1, Baso # (Auto) 0.0, Sodium 139, Potassium 4.0, Chloride 110 H, Carbon Dioxide 19 L, Anion Gap 14.0, BUN 49 H, Creatinine 2.20 H, Estimated Creat Clear 27, Estimated GFR 23 L, Est GFR ( Amer) 27 L, Glucose 69 L D, Calcium 8.3 L, Magnesium 1.9, Total Bilirubin 0.4, AST 46 H D, ALT 25 D, Alkaline Phosphatase 105, Total Protein 6.1 L, Albumin 3.3 L, Globulin 2.8, Albumin/Globulin Ratio 1.2 03/17/24 06:06: POC Glucose 101 I & O for Labs for Last 24 Hours: Intake & Output 03/15/24 03/16/24 03/17/2425 23:59 23:59 23:59 23:59 Intake Total 240 / 440 680 / 1070 1120 / 1120 Output Total 1225 / 1225 1850 / 1850 650 / 1350 1000 / 1000 Balance -985 / -785 -1170 / -780 470 / -230 -1000 / -1000 Weight 139 lb 3.2 oz 140 lb 8 oz 139 lb 7.783 oz 130 lb 14.4 oz Intake & Output 03/14/24 03/15/24 03/16/24 03/17/24 23:59 23:59 23:59 23:59 Intake Total 240 / 440 680 / 1070 390 / 390 Output Total 1225 / 1225 1850 / 1850 0 / 0 Balance -985 / -785 -1170 / -780 390 / 390 Weight 139 lb 3.2 oz 140 lb 8 oz 139 lb 8 oz Microbiology Reports for the Last 24 Hours: Microbiology 03/15/24 10:37 Blood Blood Culture - Preliminary NO GROWTH AFTER 48 HOURS 03/15/24 10:35 Blood Blood Culture - Preliminary NO GROWTH AFTER 48 HOURS 03/16/24 16:19 Anus CRE Surveillance Culture - Final Microbiology 03/16/24 13:19 Sputum - Expectorated Sputum Gram Stain - Final 03/15/24 10:37 Blood Blood Culture - Preliminary NO GROWTH AFTER 24 HOURS 03/15/24 10:35 Blood Blood Culture - Preliminary NO GROWTH AFTER 24 HOURS Constitutional: Present moderate distress Head: Present normocephalic and atraumatic ENT: Present normal exam, normal oropharynx and mucous membranes moist Neck: Present normal inspection and full ROM Respiratory: Present rhonchi, diminished air movement and able to speak in complete sentences; Absent prolonged expiratory phase or wheezes Cardiac: Present S1/S2, Tachycardia and radial pulses present GI: Present soft and distention; Absent tenderness or guarding Rectal (female): Present deferred (female): Present deferred Skin: Present intact; Absent cyanosis or jaundice Neuro: Present alert, awake and oriented x 3 Extremities: Present normal inspection; Absent clubbing or cyanosis Psychiatric: Present normal affect and cooperative Assessment and Plan *Assessment and plan (1) Pulmonary embolism: Status: Acute Qualifiers: Pulmonary embolism type: single subsegmental (without acute cor pulmonale) Qualified Code(s): I26.93 - Single subsegmental thrombotic pulmonary embolism without acute cor pulmonale Category: Medical Code(s): I26.99 - Other pulmonary embolism without acute cor pulmonale (2) Pneumonia: Status: Acute Qualifiers: Laterality: right Lung location: upper lobe of lung Pneumonia type: due to unspecified organism Qualified Code(s): J18.9 - Pneumonia, unspecified organism Category: Medical Code(s): J18.9 - Pneumonia, unspecified organism (3) Pleural effusion on right: Status: Acute Category: Medical Code(s): J90 - Pleural effusion, not elsewhere classified (4) Acute respiratory failure with hypoxia: Status: Acute Category: Medical Code(s): J96.01 - Acute respiratory failure with hypoxia Plan Ms. Cronin is a 63-year-old female with reported history of CAD CHF 2016 A- fib bioprosthetic mitral valve with chronic endocarditis on daily penicillin as per the patient presented to the ER with worsening respiratory distress and pulmonary was called for further evaluation and management. Greater than [id number] smoking, using nebulization therapies on as-needed basis at baseline. Not using any oxygen supplementation Afebrile. Hemodynamically stable. CTA upon admission left lower lobe segmental subsegmental pulmonary embolism. Moderate to large right pleural effusion. Right middle and lower lobe patchy airspace disease. The right pleural effusion and right airspace disease relatively new from her most recent CT from 03/05/2024 when she presented to the ER and was transferred to an outside hospital for renal dysfunction Currently receiving vancomycin and cefepime. Recently discharged from hospital for presumed airspace disease and pneumonia from [facility]. Drop in hemoglobin after receiving full dose anticoagulation. Anticoagulation currently on hold. GI following. Chest x-ray continue to show right pleural effusion. Blood cultures no growth. Sputum cultures with gram-positive cocci in chains and gram-negative rods. Interval update: Pending nasal MRSA PCR. Continue to receive vancomycin and cefepime for presumed hospital-acquired pneumonia. Echo with regional wall motion abnormalities, scheduled for left heart catheter today. On 2 L saturating 98%, weaned to 1 L. Plan: Oxygen supplementation to maintain O2 saturation around 90% and above, patient tolerating nasal cannula supplementation. Continue vancomycin and cefepime pending culture results and nasal MRSA PCR DuoNebs 4 times daily scheduled Pulmonary embolism likely provoked. Resume anticoagulation pending GI recommendations. F/U CXR and consider diagnostic thoracentesis given relatively recent onset of the noted effusion
[2024-03-18] MEDS: TORSEMIDE 20MG TABLET 20 MG PO (10:39)
[2024-03-18] MEDS: METOPROLOL TARTRATE 25MG TABLET 25 MG PO ×2 (10:39→20:19)
[2024-03-18] MEDS: CLOPIDOGREL 75MG TAB 75 MG PO (10:39)
[2024-03-18] MEDS: AMIODARONE 200MG TABLET 200 MG PO (10:39)
[2024-03-18] MEDS: FOLIC ACID 1MG TABLET 1 MG PO (10:39)
--- NOTE | 2024-03-18 10:45 | EXP.CARD.PN ---
Subjective Subjective Date: 03/18/24 Time: 09:30 Principal diagnosis: Afib with RVR,PE, acute on chronic HFrEF, abnormal echo Interval history: This is a 63-year-old female admitted to the hospital with an acute PE. She also has pneumonia and acute on chronic HFrEF. The patient underwent echocardiogram yesterday which does show a new apical wall motion abnormality and she is scheduled to undergo left cardiac catheterization today. This morning she still having shortness of breath intermittently however, this has improved significantly since admission. She denies any chest pain or pressure. She denies any lower extremity edema. She denies any fever, chills, nausea, vomiting, diarrhea, PND orthopnea. Exam Data for Last 24 hours Vital signs and Labs for Last 24 Hours: Temp Pulse Resp BP Pulse Ox O2 Del Method O2 Flow Rate 98.3 F 110 H 18 101/70 L 95 Room Air 2 03/18/24 10:40 03/18/24 10:40 03/18/24 10:40 03/18/24 10:40 03/18/24 10:40 03/18/24 08:00 03/18/24 06:56 Laboratory Results - last 24 hr 03/16/24 08:48: MRSA (PCR) Negative 03/17/24 15:28: Blood Type O Positive, Antibody Screen Positive, Antibody Identification Anti-E, Crossmatch (AHG) See Detail 03/17/24 17:13: POC Glucose 85 03/17/24 20:47: POC Glucose 82 03/17/24 21:10: POC Glucose 72 03/18/24 05:27: POC Glucose 67 L 03/18/24 05:40: WBC 11.9 H, RBC 3.11 L, Hgb 8.8 L D, Hct 28.6 L, MCV 92.0, MCH 28.0, MCHC 30.4 L, RDW 18.4 H, Plt Count 362 D, MPV 11.8 H, Neut % (Auto) 76.1, Lymph % (Auto) 16.0, [place] % (Auto) 5.4, Eos % (Auto) 1.7, Baso % (Auto) 0.3, Neut # (Auto) 9.0 H, Lymph # (Auto) 1.9, [place] # (Auto) 0.6, Eos # (Auto) 0.2, Baso # (Auto) 0.0, Sodium 141, Potassium 3.7, Chloride 105, Carbon Dioxide 25, Anion Gap 14.7, BUN 48 H, Creatinine 2.30 H, Estimated Creat Clear 24, Estimated GFR 22 L, Est GFR ( Amer) 26 L, Glucose 45 L* D, Calcium 8.8, Magnesium 1.8, Total Bilirubin 0.4, AST 28 D, ALT 24, Alkaline Phosphatase 91, Total Protein 6.6, Albumin 4.1 D, Globulin 2.5, Albumin/Globulin Ratio 1.6, Triglycerides 135, Cholesterol 118 L, LDL Cholesterol Direct 67.14 L, VLDL Cholesterol 27, HDL Cholesterol 30 L, Cholesterol/HDL Ratio 3.9 H 03/18/24 06:36: POC Glucose 128 H I & O for Last 24 hours: Intake & Output 03/15/24 03/16/24 03/17/24 03/18/24 23:59 23:59 23:59 23:59 Intake Total 240 / 440 680 / 1070 1120 / 1120 0 / 0 Output Total 1225 / 1225 1850 / 1850 650 / 1350 1225 / 1225 Balance -985 / -785 -1170 / -780 470 / -230 -1225 / -1225 Weight 139 lb 3.2 oz 140 lb 8 oz 139 lb 7.783 oz 130 lb 14.4 oz Microbiology Reports for the Last 24 Hours: Microbiology 03/16/24 13:19 Sputum - Expectorated Sputum Gram Stain - Final 03/16/24 13:19 Sputum - Expectorated Sputum Sputum Culture - Preliminary 03/15/24 10:37 Blood Blood Culture - Preliminary NO GROWTH AFTER 48 HOURS 03/15/24 10:35 Blood Blood Culture - Preliminary NO GROWTH AFTER 48 HOURS 03/16/24 16:19 Anus CRE Surveillance Culture - Final Narrative: Echocardiogram shows: Moderate reduction global LV systolic function (LVEF 35-40%). Severe hypokinesis in the distal inferoseptal and apical LV cid. Normal LV size with mildly reduced RV function. Biatrial dilation. s/p bioprosthetic MVR. Thickened MV leaflets, but no evidence of MV mobile echodensities Mean MV gradient 8-10 mmHg (HR 107 bpm). Mild to moderate TR. Compared to prior study, the LV systolic function is further reduced with new wall motion abnormalities present. Also, MV gradients are slightly further increased compared to prior TTE. Further evaluation with BROCK to evaluate for LV pannus formation versus thrombus is suggested. Clinical correlation is required to determine timing and hemodynamic stability for the procedure (inpatient versus outpatient BROCK). Constitutional Constitutional: no acute distress, average body habitus and chronically ill appearing *Routine HEENT Exam Head: Present normocephalic and atraumatic ENT: Present mucous membranes moist *Routine Neck Exam Neck: Present supple, full ROM and normal carotid upstroke; Absent JVD, carotid bruit or lymphadenopathy *Routine Respiratory Exam Respiratory: Present CTA bilaterally, normal respiratory effort, able to speak in complete sentences and symmetric chest movement *Routine Cardiovascular Exam Cardiovascular: Present Normal S1, Normal S2, murmur and irregularly irregular; Absent gallop *Routine Abdominal Exam Abdominal: Present soft and normoactive bowel sounds; Absent tenderness, distended or organomegaly *Routine Extremities Exam Extremities: Present full ROM, pulses intact and normal capillary refill; Absent cyanosis, clubbing or edema *Routine Skin Exam Skin: Present intact and warm; Absent erythema *Routine Neurological Exam Neurological: Present alert, oriented X3 and CN II-XII intact; Absent sensory deficit or motor deficit Routine Psychiatric Exam Psychiatric: Present normal affect Progress Note: A&P Assessment and plan (1) Atypical angina: Status: Acute (2) Abnormal echocardiogram: Status: Acute (3) CAD (coronary artery disease): Status: Acute (4) Acute on chronic HFrEF (heart failure with reduced ejection fraction): Status: Acute (5) Pulmonary embolism: Status: Acute (6) Pneumonia: Status: Acute (7) Pleural effusion on right: Status: Acute (8) Acute respiratory failure with hypoxia: Status: Acute (9) Status post mitral valve replacement: Status: Acute (10) Chronic endocarditis: Status: Acute (11) Anemia: Status: Acute (12) Atrial fibrillation with rapid ventricular response: Status: Acute (13) Acute on chronic kidney failure: Status: Acute (14) T2DM (type 2 diabetes mellitus): Status: Acute (15) PAD (peripheral artery disease): Status: Chronic (16) S/P left atrial appendage ligation: Status: Chronic (17) AICD (automatic cardioverter/defibrillator) present: Status: Chronic (18) H/O tricuspid valve replacement: Status: Chronic (19) Carotid artery stenosis: Status: Chronic Assessment and Plan Assessment and Plan for All Diagnoses:: Plan: 1. The patient was admitted to the hospital after presenting to the emergency department with shortness of breath. She is found to have a left lower lobe pulmonary embolus and a right upper lobe pneumonia. She is currently getting IV antibiotics. Pulmonology has been consulted. Will defer. 2. The patient does have an a pulmonary embolus. She has been started on Lovenox. She will need to be switched over to oral anticoagulation prior to discharge. 3. The patient also had an elevated BNP. She is having acute on chronic exacerbation of HFrEF. She was treated with Lasix yesterday. She does have a -1170 mL liter fluid balance overnight. She states her shortness of breath has significantly improved. Continue Farxiga for HFrEF. Will stop Lasix and put her on torsemide 20 mg p.o. daily due to her renal function. 4. The patient's echocardiogram shows interval reduction in ejection fraction to 35 to 40%. The patient also has severe hypokinesis in the distal inferoseptal and apical LV cid. This apical wall motion abnormality is new. Due to her atypical angina, known coronary artery disease with recent multivessel stenting and abnormal echocardiogram we will plan to proceed with left cardiac catheterization today to evaluate her coronary artery disease. 5. The patient has been educated the risk and benefits of proceeding with left cardiac catheterization. The patient verbalized understanding and is agreeable in proceeding with the procedure. 6. The patient will be n.p.o. in preparation for left cardiac catheterization. 7. The patient does have a history of atrial fibrillation. On admission she was in atrial fibrillation with RVR. Her heart rate still remains elevated today. She remains on amiodarone 200 mg p.o. daily. Toprol was started yesterday and her heart rate is under better control. 8. She is status post maze procedure and left atrial appendage clip in 2022. She does not have to be on long-term anticoagulation for her atrial fibrillation. However, in the setting of her pulmonary embolus she will require anticoagulation for at least 6 months. 9. Aspirin has been stopped due to her anemia. She will remain on Plavix 75 mg daily in addition to anticoagulation once her Lovenox is switched to a NOAC. 10. Her blood pressure is well-controlled. 11. Her LDL goal is less than 55. Her LDL is 67. She is on a statin. 12. The patient does have a history of infective endocarditis. She was following with infectious disease. She has been on chronic penicillin for the infective endocarditis. It does appear that the patient has been lost to follow-up with infectious disease. She was referred back to infectious disease recently but it does not look like the patient has went to her appointment. Case management is going to help facilitate this referral. 13. The patient is status post AICD placement. 14. The patient does have chronic kidney disease. Her creatinine is stable at 2.3. 15. The patient was anemic yesterday with a hemoglobin of 7.5. She was supposed to have 1 unit of packed red blood cells transfused however due to her antibodies the blood had to be ordered and is still currently pending. Her anemia is improved today with a hemoglobin of 8.8. 16. Further recommendations will be made pending the patient's response to treatment and the results of her left cardiac catheterization today. Thank you for the opportunity to help dissipate in the care of this patient. All recommendations and orders are per Dr. Fowler.
--- NOTE | 2024-03-18 10:48 | PC.NURSE ---
I clarified with Johnie Hutchinson with cardiology this AM if cards still wanted the pt to get the unit of blood that was ordered yesterday. She stated that she did still want pt to get the blood. CHONG also asked why the blood was not given yesterday. CHONG informed that the pt's blood had to come from the blood bank in [place].
--- NOTE | 2024-03-18 11:47 | EXP.ACUTE.PN ---
Subjective *Date: 03/18/24 *Time: 19:21 Interval history: Patient stable on room air. Denies any chest pain, nausea, vomiting. Afebrile overnight. Awaiting for blood transfusion due to antibodies. Hemoglobin somewhat improved today even without transfusion. Awaiting heart cath. Glucose low but asymptomatic. Evaluated by therapy and recommended home health. Patient not interested at this time. Will continue to discuss benefits given her recurrent readmission. No family at bedside today. Medical Exam Vital signs and Labs for Last 24 Hours: Vital Signs Temp Pulse Pulse Resp BP BP Pulse Ox 03/18/24 11:10 97.9 F 92 H 16 87/58 L 94 L 03/18/24 10:55 98.0 F 99 H 18 100/65 L 95 03/18/24 10:50 98.1 F 105 H 18 97/60 L 93 L 03/18/24 10:45 98.3 F 102 H 18 104/61 L 97 03/18/24 10:40 98.3 F 110 H 18 101/70 L 95 03/18/24 10:20 97.8 F 101 H 18 98/70 L 97 03/18/24 08:00 110 H 03/18/24 08:00 98.0 F 96 H 16 91/63 L 97 03/18/24 06:56 03/18/24 06:22 92 H 03/18/24 06:22 98 H 03/18/24 06:22 95 03/18/24 05:00 03/18/24 04:00 97.8 F 80 16 112/66 94 L 03/18/24 04:00 90 03/18/24 03:00 03/18/24 01:00 03/18/24 00:00 80 03/18/24 00:00 98.4 F 80 16 109/62 L 97 03/17/24 23:57 72 03/17/24 23:00 03/17/24 21:00 03/17/24 20:00 90 03/17/24 20:00 98 03/17/24 20:00 97.8 F 110 H 16 114/71 98 03/17/24 18:22 03/17/24 18:20 77 03/17/24 17:00 03/17/24 16:00 98.8 F 78 17 130/73 100 03/17/24 16:00 90 03/17/24 15:00 03/17/24 12:33 03/17/24 12:00 110 H 03/17/24 12:00 98.1 F 115 H 17 118/74 94 L O2 Del Method O2 Flow Rate 03/18/24 11:10 03/18/24 10:55 03/18/24 10:50 03/18/24 10:45 03/18/24 10:40 03/18/24 10:20 03/18/24 08:00 03/18/24 08:00 Room Air 03/18/24 06:56 Nasal Cannula 2 03/18/24 06:22 03/18/24 06:22 03/18/24 06:22 Nasal Cannula 2 03/18/24 05:00 Nasal Cannula 2 03/18/24 04:00 Nasal Cannula 2 03/18/24 04:00 03/18/24 03:00 Nasal Cannula 2 03/18/24 01:00 Nasal Cannula 2 03/18/24 00:00 03/18/24 00:00 Nasal Cannula 2 03/17/24 23:57 03/17/24 23:00 Nasal Cannula 2 03/17/24 21:00 Nasal Cannula 2 03/17/24 20:00 03/17/24 20:00 Nasal Cannula 2 03/17/24 20:00 BiPAP 2 03/17/24 18:22 Nasal Cannula 2 03/17/24 18:20 03/17/24 17:00 Nasal Cannula 2 03/17/24 16:00 03/17/24 16:00 03/17/24 15:00 Nasal Cannula 2 03/17/24 12:33 Room Air 03/17/24 12:00 03/17/24 12:00 Intake and Output 03/17/24 03/18/24 03/18/24 23:59 07:59 15:59 Intake Total 730 / 1120 0 / 0 Output Total 650 / 1350 1000 / 1225 225 / 1225 Balance 80 / -230 -1000 / -1225 -225 / -1225 Intake: Intake, Oral Amount 480 / 720 Intake, Total IV Amount 250 / 400 Vancomycin HCl 1,000 mg In 0.9 250 / 250 % Sodium Chloride 250 ml @ 125 mls/hr IV Q48H [facility] Rx#:[id number] Intake (Blood Product) Amt 0 / 0 Red Blood Cells Unit 0 / 0 [id number] Output: Output, Urine Amount 650 / 1350 1000 / 1225 225 / 1225 Other: Number of Unmeasured Voids 1 0 Weight 59.375 kg Patient Weight 03/18/24 23:59 Weight 59.375 kg Laboratory Results - last 24 hr 03/16/24 08:48: MRSA (PCR) Negative 03/17/24 15:28: Blood Type O Positive, Antibody Screen Positive, Antibody Identification Anti-E, Crossmatch (AHG) See Detail 03/17/24 17:13: POC Glucose 85 03/17/24 20:47: POC Glucose 82 03/17/24 21:10: POC Glucose 72 03/18/24 05:27: POC Glucose 67 L 03/18/24 05:40: WBC 11.9 H, RBC 3.11 L, Hgb 8.8 L D, Hct 28.6 L, MCV 92.0, MCH 28.0, MCHC 30.4 L, RDW 18.4 H, Plt Count 362 D, MPV 11.8 H, Neut % (Auto) 76.1, Lymph % (Auto) 16.0, [place] % (Auto) 5.4, Eos % (Auto) 1.7, Baso % (Auto) 0.3, Neut # (Auto) 9.0 H, Lymph # (Auto) 1.9, [place] # (Auto) 0.6, Eos # (Auto) 0.2, Baso # (Auto) 0.0, Sodium 141, Potassium 3.7, Chloride 105, Carbon Dioxide 25, Anion Gap 14.7, BUN 48 H, Creatinine 2.30 H, Estimated Creat Clear 24, Estimated GFR 22 L, Est GFR ( Amer) 26 L, Glucose 45 L* D, Calcium 8.8, Magnesium 1.8, Total Bilirubin 0.4, AST 28 D, ALT 24, Alkaline Phosphatase 91, Total Protein 6.6, Albumin 4.1 D, Globulin 2.5, Albumin/Globulin Ratio 1.6, Triglycerides 135, Cholesterol 118 L, LDL Cholesterol Direct 67.14 L, VLDL Cholesterol 27, HDL Cholesterol 30 L, Cholesterol/HDL Ratio 3.9 H 03/18/24 06:36: POC Glucose 128 H I & O for Labs for Last 24 Hours: Intake & Output 02/04/0703/16/24 03/17/24 03/18/24 23:59 23:59 23:59 23:59 Intake Total 240 / 440 680 / 1070 1120 / 1120 0 / 0 Output Total 1225 / 1225 1850 / 1850 650 / 1350 1225 / 1225 Balance -985 / -785 -1170 / -780 470 / -230 -1225 / -1225 Weight 63.14 kg 63.73 kg 63.27 kg 59.375 kg Microbiology Reports for the Last 24 Hours: Microbiology 03/16/24 13:19 Sputum - Expectorated Sputum Gram Stain - Final 03/16/24 13:19 Sputum - Expectorated Sputum Sputum Culture - Final 03/15/24 10:37 Blood Blood Culture - Preliminary NO GROWTH AFTER 48 HOURS 03/15/24 10:35 Blood Blood Culture - Preliminary NO GROWTH AFTER 48 HOURS 03/16/24 16:19 Anus CRE Surveillance Culture - Final Constitutional: Present average body habitus, chronically ill appearing and cooperative Head: Present atraumatic and normocephalic ENT: Present normal exam Neck: Present normal inspection Respiratory: Present crackles and normal respiratory effort; Absent rhonchi or wheezes Cardiac: Present Reg Rate and Rhythm GI: Present soft and normal bowel sounds; Absent distention or tenderness Comments:: Urostomy in right lower abdomen Extremities: Present normal inspection and full ROM; Absent edema Skin: Present intact; Absent erythema Neuro: Present Grossly Intact, alert, awake and moves all extremities Comment:: Oriented to self and place. At baseline Assessment and Plan *Assessment and plan (1) Pneumonia: Status: Acute Qualifiers: Laterality: right Lung location: upper lobe of lung Pneumonia type: due to unspecified organism Qualified Code(s): J18.9 - Pneumonia, unspecified organism Category: Medical Code(s): J18.9 - Pneumonia, unspecified organism (2) Pulmonary embolism: Status: Acute Qualifiers: Pulmonary embolism type: single subsegmental (without acute cor pulmonale) Qualified Code(s): I26.93 - Single subsegmental thrombotic pulmonary embolism without acute cor pulmonale Category: Medical Code(s): I26.99 - Other pulmonary embolism without acute cor pulmonale (3) Status post mitral valve replacement: Status: Acute Category: Surgical Code(s): Z95.2 - Presence of prosthetic heart valve (4) Chronic endocarditis: Status: Acute Qualifiers: Endocarditis type: infective Infective endocarditis organism: bacterial Qualified Code(s): I33.0 - Acute and subacute infective endocarditis Category: Medical Code(s): I38 - Endocarditis, valve unspecified (5) Acute on chronic HFrEF (heart failure with reduced ejection fraction): Status: Acute Category: Medical Code(s): I50.23 - Acute on chronic systolic (congestive) heart failure (6) Anemia: Status: Acute Qualifiers: Anemia type: unspecified type Qualified Code(s): D64.9 - Anemia, unspecified Category: Medical Code(s): D64.9 - Anemia, unspecified (7) T2DM (type 2 diabetes mellitus): Status: Acute Qualifiers: Chronic kidney disease stage: stage 3 (moderate) Chronic kidney disease stage 3 subtype: stage 3a (GFR 45-59) Diabetes mellitus complication detail: with chronic kidney disease Diabetes mellitus complication status: with kidney complications Diabetes mellitus terminal gauger insulin use: with terminal gauger use Qualified Code(s): E11.22 - Type 2 diabetes mellitus with diabetic chronic kidney disease; N18.31 - Chronic kidney disease, stage 3a; Z79.4 - predatory animal 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 (current) use of insulin Category: Medical Code(s): E11.9 - Type 2 diabetes mellitus without complications (8) CAD (coronary artery disease): Status: Acute Qualifiers: Coronary Disease-Associated Artery/Lesion type: [place] artery Category: Medical Code(s): I25.10 - Atherosclerotic heart disease of [place] coronary artery without angina pectoris (9) Paroxysmal atrial fibrillation: Status: Acute Category: Medical Code(s): I48.0 - Paroxysmal atrial fibrillation Plan Laxmi Cronin is a 63-year-old female with a medical history significant for CAD s/p 2 stents 12/13/2023, HFrEF 40%, CABG 2016, AICD, A-fib s/p maze and MILLY clip, bioprosthetic mitral valve replacement with chronic endocarditis on penicillin daily (used to follow with ID, lost to follow-up), CKD 3A, insulin-dependent diabetes who who presents with several week onset of progressive shortness of breath, nonproductive cough. Patient is not the best historian, unable to tell me when her shortness of breath began getting worse. She states she has baseline dyspnea on exertion. Denies fever/chills, chest pain, upper respiratory symptoms abdominal pain, urinary symptoms. She states that she has felt difficulty breathing since being discharged from [facility] 7 days for acute renal failure, though she does not remember what exactly they did for her there. Workup in the ED significant for heart rate 130, BNP 3670, and CTA revealing right upper lobe pneumonia with left lower lobe pulmonary embolism. On room air saturating appropriately. Given vancomycin, cefepime, Lasix 40 in the ED. Case discussed with ED provider and decision was made to admit patient for hospital-acquired pneumonia, pulmonary embolism. Hemoglobin slightly better today at 8.8. Awaiting transfusion due to antibodies and delay in blood. Cardiology, GI, pulmonary assisting with care. Going for left heart cath today. Continues to require inpatient management. Problems addressed as follows: #Suspected hospital-acquired pneumonia #Right pleural effusion ? Discharged from [facility] about 7 days ago for acute renal failure, fecal disimpaction. Reviewed records obtained today, received bicarb drip with gradual improvement in kidney function. No dialysis performed. ? Progressive shortness of breath since then, CTA revealed right upper lobe pneumonia with left lower lobe pulmonary embolism. - Continue broad-spectrum antibiotics with vancomycin and cefepime for 7 days. On room air today. - Follow-up sputum, blood cultures. Follow-up MRSA nares screen. ? Discussed case with pulmonology. Continue supplemental oxygen if needed for goal sats greater 90%. Currently on room air. DuoNebs 4 times a day scheduled. Consider diagnostic thoracentesis for effusion given its relatively recent onset. #Pulmonary embolism, left lower lobe # Acute on chronic heart failure with reduced ejection fraction ? CTA revealed LLL PE. Heart rate improved in the lower 110s. On room air. Appears comfortable. - Discussed case with cardiology, taken for left heart cath today. Echocardiogram obtained. Formal read with reduced ejection fraction of 35 to 40%. Severe hypokinesis in the distal inferoseptal and apical LV cid. No evidence of MV mobile echodensities. Biatrial dilatation. Left heart cath performed with following findings: Severe disease in the saphenous vein graft limb supplying the LAD; Successful stenting of the saphenous vein graft severe disease reduced to 0% with 1 drug-eluting stent -Will continue dual antiplatelet therapy for 30 days. Wean to Plavix at that time. Continue Lovenox for PE -Ordered repeat CBC, CMP, magnesium for the morning #Acute on chronic anemia -Hemoglobin 8.8. No active signs of bleeding. White count 11.9. Awaiting transfusion today. Repeat H&H ordered for after transfusion ? Patient has multiple comorbidities, high risk for readmission and possible bleeding. Will have GI evaluate patient before DC. ? Discussed case with GI, given patient's anemia, will await cardiac clearance prior to panendoscopy. Anticipate scope tomorrow ? Iron studies low normal in February 2024. Folate also low. -Status post Venofer x 1 yesterday on 03/17 ? Follow-up blood cultures in the setting of chronic endocarditis. #Type 2 diabetes ? Hemoglobin A1c 6.8 in early February 2024. ? LDSSI, ACHS glucose checks. ?Decrease Lantus to 10 units nightly due to blood sugar 45 this morning. #CKD stage III ? Stable, BUN 48, creatinine 2.3. Continue to monitor with daily labs Full code DVT prophylaxis: Therapeutic Lovenox as above resume diabetic diet
[2024-03-18 12:22] LABS: POC Glucose,Bedside 79 (70-110)
[2024-03-18] MEDS: LIDOCAINE 1% 10ML MDV 20 ML IJ (14:15)
[2024-03-18] MEDS: NITROGLYCERIN 800MCG/8ML SYR (CATH LAB) 800 MCG IA (14:15)
[2024-03-18] MEDS: VERAPAMIL 2.5MG/ML 2ML VIAL 2.5 MG IV (14:15)
[2024-03-18] MEDS: HEPARIN 1,000 UNITS/500ML NS (CATH LAB) 3000 UNIT IV (14:16)
[2024-03-18] MEDS: HEPARIN 1,000 UNITS/ML 10ML VIAL (CATH LAB) 10000 UNIT IV ×2 (14:16→14:45)
[2024-03-18] MEDS: 0.9 % SODIUM CHLORIDE 500 ML 25 ML IV (14:16)
[2024-03-18] MEDS: FENTANYL 100MCG/2ML VIAL 50 MCG IV (14:24)
[2024-03-18] MEDS: MIDAZOLAM HCL 1MG/ML 5ML VIAL 1 MG IV (14:25)
[2024-03-18] MEDS: IOPAMIDOL-370 (76%);100ML BOTTLE 40 ML IV ×2 (14:57→14:58)
[2024-03-18 14:59] LABS: CATHL Activated Clotting Time 248 SEC (74-125)
[2024-03-18 15:42] LABS: Hemoglobin 9.9 g/dL (12.2-16.2)
--- NOTE | 2024-03-18 16:30 | PC.NURSE ---
1630 FSBS was 59. Pt given regular pepsi. Educated that she needed something to bring her sugar up. She stated that her family was bringing her food soon.
--- NOTE | 2024-03-18 16:46 | PC.NURSE ---
Pt has done well this shift. She tolerated her blood transfusion well. BP has been on the soft side today. Pt is asymptomatic, states that she feels pretty good today. She tolerasted her heart cath well. cath sight is clean an ddry with so sign on hematoma or bleeding. She has been weaned to room air today with sats in the mid 90's. Her sugar has been her main issue this shift. at lunch her FSBS was 79 and before supper at 1630 her FSBS was 59. Regular pepsi given to help bring pt's sugar up. Pt was educated that i was going to recheck her sugar after she drank about half of her pepsi. Pt agreeable.
[2024-03-18] MEDS: ATORVASTATIN 40MG TABLET 40 MG PO (20:16)
[2024-03-18] MEDS: CITALOPRAM 20MG TABLET 20 MG PO (20:16)
[2024-03-18] MEDS: ENOXAPARIN 60MG/0.6ML SYRINGE 60 MG SUBCUT (20:17)
[2024-03-18] MEDS: INSULIN GLARGINE 100 UNITS/ML 3ML FLEXPEN 10 UNIT SUBCUT (20:17)
[2024-03-18] MEDS: humaLOG 100 UNITS/ML 10ML VIAL (SSI) SUBCUT (20:18)
[2024-03-18] MEDS: TRAZODONE 50MG TABLET 50 MG PO (20:19)
[2024-03-18] MEDS: PANTOPRAZOLE 40MG TABLET 40 MG PO (20:19)
[2024-03-18] MEDS: ROPINIROLE 1MG TABLET 1 MG PO (20:19)
[2024-03-18 21:03] LABS: POC Glucose,Bedside 268 (70-110)
[2024-03-19] VITALS (24 sets, daily range): BP systolic 83–108; BP diastolic 53–77; PULSE 70–133; RESP 16–20; TEMP 36.3–36.7; O2SAT 92–100; BMI 25.5
[2024-03-19] MEDS: IPRATROPIUM/ALBUTEROL 3 ML NEB IH ×5 (00:26→22:59)
--- NOTE | 2024-03-19 04:13 | PC.NURSE ---
Pt remains A/O X 4. She has denied pain discomfort or SOA this shift Pt still has [employer]RE[employer]AR[employer] cough at times. Cath site dressing to right wrist, C/D/I, no signs of bleeding or hematoma. Pt voiding via urostomy and uses her supplies from home. She has tolerated cardiac diet but has been NPO since MA. FSBS at 9 pm was 268, covered with insulin per SS. Pt paced on tele. VSS WNL for pt with 02 sats above 90% on RA. Informed pt that she is on schedule for endoscopy today.
[2024-03-19 05:37] LABS: Basophils # 0.1 K/mm3 (0-0.2); Basophils % 0.5 % (0.1-2.0); Eosinophils # 0.2 K/mm3 (0.0-0.4); Eosinophils % 1.9 % (0.1-12.0); Hematocrit 30.1 % (37.0-47.0); Hemoglobin 9.5 g/dL (12.2-16.2); Lymphocytes # 1.8 K/mm3 (0.7-4.5); Lymphocytes % 16.5 % (10-50); Mean Corpuscular HGB Conc 31.6 g/dL (31.8-35.4); Mean Corpuscular Volume 91.8 fl (81-99); Mean Platelet Volume 11.3 fl (7.4-10.4); Monocytes # 0.7 K/mm3 (0.1-1.0); Monocytes % 6.3 % (1.7-9.3); Neutrophils % 74.1 % (37.0-80.0); Platelet Count 349 K/mm3 (142-424); Red Blood Count 3.28 M/mm3 (4.20-5.40); Red Cell Distribution Width 17.6 % (11.5-17.5); White Blood Count 10.8 K/mm3 (4.8-10.8)
[2024-03-19 05:53] LABS: Albumin Level 3.5 g/dl (3.5-5.0); Chloride 106 mmol/L (98-107); Potassium 3.8 mmoL/L (3.5-5.1); Sodium 138 mmol/L (136-145)
[2024-03-19 05:55] LABS: Blood Urea Nitrogen 51 mg/dl (7-17); Creatinine Clearance Estimated 22 mL/min (50-200); Estimated Glomerular Filt Rate 19 ml/min (>60); GFR (African American) 23 ML/MIN (>60)
[2024-03-19 05:56] LABS: Alanine Aminotransferase 17 U/L (12-78); Albumin/Globulin Ratio 1.3 (1.1-1.8); Alkaline Phosphatase 93 U/L (38-126); Anion Gap 13.8 mEq/L (5-15); Aspartate Amino Transferase 45 U/L (14-36); Bilirubin,Total 0.5 mg/dl (0.2-1.3); Calcium 8.3 mg/dl (8.4-10.2); Carbon Dioxide 22 mmol/L (22.0-30.0); Globulin 2.7 g/dL (1.3-3.2); Glucose 63 mg/dl (74-100); Magnesium 1.9 mg/dl (1.6-2.3); Total Protein,Serum 6.2 g/dl (6.3-8.2)
--- NOTE | 2024-03-19 06:00 | XR_ITS ---
PROCEDURE INFORMATION: Exam: XR Chest Exam date and time: 03/19/2024 5:43 AM Age: 63 years old Clinical indication: Other: Effusion TECHNIQUE: Imaging protocol: Radiologic exam of the chest. Views: 1 view. COMPARISON: CR XR CHEST PORTABLE 03/17/2024 10:33 AM FINDINGS: Lungs: Lungs are well aerated with improved aeration of the right base. Mild residual bibasilar atelectasis. No consolidation. Pleural spaces: No significant pleural effusions. No pneumothorax. Right pleural effusion noted previously has essentially resolved. Heart/Mediastinum: Cardiomediastinal silhouette is stable. Postoperative change from sternotomy and cardiac surgery. Left subclavian multi lead pacemaker/ICD. Bones/joints: Bones are stable. IMPRESSION: Interval improvement compared to 03/17/2024. Right pleural effusion noted previously has essentially resolved with improved aeration of the right base.
[2024-03-19 06:01] LABS: POC Glucose,Bedside 85 (70-110)
[2024-03-19] MEDS: CEFEPIME HCL 1 GM in 0.9 % SODIUM CHLORIDE 50 ML IV ×2 (06:25→20:50)
[2024-03-19] MEDS: METOPROLOL TARTRATE 25MG TABLET 25 MG PO ×2 (08:24→21:00)
[2024-03-19] MEDS: AMIODARONE 200MG TABLET 200 MG PO (08:24)
[2024-03-19] MEDS: FOLIC ACID 1MG TABLET 1 MG PO (08:24)
[2024-03-19] MEDS: CLOPIDOGREL 75MG TAB 75 MG PO (08:24)
[2024-03-19] MEDS: TORSEMIDE 20MG TABLET 20 MG PO (08:24)
[2024-03-19] MEDS: PANTOPRAZOLE 40MG TABLET 40 MG PO ×2 (08:24→20:51)
--- NOTE | 2024-03-19 09:43 | EXP.PULM.PN ---
Subjective *Date: 03/19/24 *Time: 11:23 Interval history: No acute respiratory events overnight. Patient admits continued improvement in her respiratory symptoms. Pulmonology Exam Inpatient Vital signs and Labs for Last 24 Hours: Temp Pulse Resp BP Pulse Ox O2 Del Method O2 Flow Rate 97.8 F 87 16 100/54 L 92 L Room Air 1 03/19/24 08:00 03/19/24 08:00 03/19/24 08:00 03/19/24 08:00 03/19/24 08:00 03/19/24 09:00 03/18/24 13:00 Laboratory Results - last 24 hr 03/17/24 15:28: Blood Type O Positive, Antibody Screen Positive, Crossmatch (AHG) See Detail 03/18/24 12:00: POC Glucose 79 03/18/24 15:10: Hgb 9.9 L D, Hct 32.0 L 03/18/24 15:35: Activated Clotting Time 248 H* 03/18/24 20:15: POC Glucose 268 H 03/19/24 04:58: WBC 10.8, RBC 3.28 L, Hgb 9.5 L, Hct 30.1 L, MCV 91.8, MCH 29.0, MCHC 31.6 L, RDW 17.6 H, Plt Count 349, MPV 11.3 H, Neut % (Auto) 74.1, Lymph % (Auto) 16.5, [place] % (Auto) 6.3, Eos % (Auto) 1.9, Baso % (Auto) 0.5, Neut # (Auto) 8.0 H, Lymph # (Auto) 1.8, [place] # (Auto) 0.7, Eos # (Auto) 0.2, Baso # (Auto) 0.1, Sodium 138, Potassium 3.8, Chloride 106, Carbon Dioxide 22, Anion Gap 13.8, BUN 51 H, Creatinine 2.60 H, Estimated Creat Clear 22, Estimated GFR 19 L*, Est GFR ( Amer) 23 L, Glucose 63 L D, Calcium 8.3 L, Magnesium 1.9, Total Bilirubin 0.5, AST 45 H D, ALT 17 D, Alkaline Phosphatase 93, Total Protein 6.2 L, Albumin 3.5 D, Globulin 2.7, Albumin/Globulin Ratio 1.3 03/19/24 05:53: POC Glucose 85 Temp Pulse Resp BP Pulse Ox O2 Del Method 98 F 116 H 16 116/73 93 L Room Air 03/17/24 08:00 03/17/24 08:00 03/17/24 08:00 03/17/24 08:00 03/17/24 08:00 03/17/24 08:00 Laboratory Results - last 24 hr 03/16/24 10:47: POC Glucose 348 H* 03/16/24 13:25: Hgb 7.4 L, Hct 24.0 L 03/16/24 16:13: POC Glucose 78 03/16/24 21:22: POC Glucose 217 H 03/17/24 05:58: WBC 12.8 H D, RBC 2.64 L, Hgb 7.5 L, Hct 25.1 L, MCV 95.1, MCH 28.4, MCHC 29.9 L, RDW 19.0 H, Plt Count 279, MPV 12.2 H, Neut % (Auto) 80.9 H, Lymph % (Auto) 12.8, [place] % (Auto) 5.1, Eos % (Auto) 0.4, Baso % (Auto) 0.3, Neut # (Auto) 10.3 H, Lymph # (Auto) 1.6, [place] # (Auto) 0.7, Eos # (Auto) 0.1, Baso # (Auto) 0.0, Sodium 139, Potassium 4.0, Chloride 110 H, Carbon Dioxide 19 L, Anion Gap 14.0, BUN 49 H, Creatinine 2.20 H, Estimated Creat Clear 27, Estimated GFR 23 L, Est GFR ( Amer) 27 L, Glucose 69 L D, Calcium 8.3 L, Magnesium 1.9, Total Bilirubin 0.4, AST 46 H D, ALT 25 D, Alkaline Phosphatase 105, Total Protein 6.1 L, Albumin 3.3 L, Globulin 2.8, Albumin/Globulin Ratio 1.2 03/17/24 06:06: POC Glucose 101 I & O for Labs for Last 24 Hours: Intake & Output 03/16/24 03/17/24 03/18/24 03/19/24 23:59 23:59 23:59 23:59 Intake Total 680 / 1070 1120 / 1120 692 / 692 Output Total 1850 / 1850 650 / 1350 1425 / 1625 775 / 775 Balance -1170 / -780 470 / -230 -733 / -933 -775 / -775 Weight 140 lb 8 oz 139 lb 7.783 oz 130 lb 14.4 oz 135 lb 6.4 oz Intake & Output 03/14/24 03/15/24 03/16/24 03/17/24 23:59 23:59 23:59 23:59 Intake Total 240 / 440 680 / 1070 390 / 390 Output Total 1225 / 1225 1850 / 1850 0 / 0 Balance -985 / -785 -1170 / -780 390 / 390 Weight 139 lb 3.2 oz 140 lb 8 oz 139 lb 8 oz Microbiology Reports for the Last 24 Hours: Microbiology 03/16/24 13:19 Sputum - Expectorated Sputum Gram Stain - Final 03/16/24 13:19 Sputum - Expectorated Sputum Sputum Culture - Final Microbiology 03/16/24 13:19 Sputum - Expectorated Sputum Gram Stain - Final 03/15/24 10:37 Blood Blood Culture - Preliminary NO GROWTH AFTER 24 HOURS 03/15/24 10:35 Blood Blood Culture - Preliminary NO GROWTH AFTER 24 HOURS Constitutional: Present moderate distress Head: Present normocephalic and atraumatic ENT: Present normal exam, normal oropharynx and mucous membranes moist Neck: Present normal inspection and full ROM Respiratory: Present rhonchi and able to speak in complete sentences; Absent prolonged expiratory phase or wheezes Cardiac: Present S1/S2, Tachycardia and radial pulses present GI: Present soft and distention; Absent tenderness or guarding Rectal (female): Present deferred (female): Present deferred Skin: Present intact; Absent cyanosis or jaundice Neuro: Present alert, awake and oriented x 3 Extremities: Present normal inspection; Absent clubbing or cyanosis Psychiatric: Present normal affect and cooperative Assessment and Plan *Assessment and plan (1) Pulmonary embolism: Status: Acute Qualifiers: Pulmonary embolism type: single subsegmental (without acute cor pulmonale) Qualified Code(s): I26.93 - Single subsegmental thrombotic pulmonary embolism without acute cor pulmonale Category: Medical Code(s): I26.99 - Other pulmonary embolism without acute cor pulmonale (2) Pneumonia: Status: Acute Qualifiers: Laterality: right Lung location: upper lobe of lung Pneumonia type: due to unspecified organism Qualified Code(s): J18.9 - Pneumonia, unspecified organism Category: Medical Code(s): J18.9 - Pneumonia, unspecified organism (3) Pleural effusion on right: Status: Acute Category: Medical Code(s): J90 - Pleural effusion, not elsewhere classified (4) Acute respiratory failure with hypoxia: Status: Acute Category: Medical Code(s): J96.01 - Acute respiratory failure with hypoxia Plan Ms. Cronin is a 63-year-old female with reported history of CAD CHF 2016 A-fib bioprosthetic mitral valve with chronic endocarditis on daily penicillin as per the patient presented to the ER with worsening respiratory distress and pulmonary was called for further evaluation and management. Greater than [id number] smoking, using nebulization therapies on as-needed basis at baseline. Not using any oxygen supplementation Afebrile. Hemodynamically stable. CTA upon admission left lower lobe segmental subsegmental pulmonary embolism. Moderate to large right pleural effusion. Right middle and lower lobe patchy airspace disease. The right pleural effusion and right airspace disease relatively new from her most recent CT from 03/05/2024 when she presented to the ER and was transferred to an outside hospital for renal dysfunction Currently receiving vancomycin and cefepime. Recently discharged from hospital for presumed airspace disease and pneumonia from [facility]. Drop in hemoglobin after receiving full dose anticoagulation. Anticoagulation currently on hold. GI following. Blood cultures no growth. Sputum cultures with gram-positive cocci in chains and gram-negative rods. Interval update: Continue to receive vancomycin and cefepime for presumed hospital-acquired pneumonia. Chest x-ray from this morning improving airspace disease and near complete resolution of the previously concerning right pleural effusion. Continue to remain on room air with intermittent need for oxygen supplementation Plan: Incentive spirometry and flutter valve Oxygen supplementation to maintain O2 saturation around 90% and above, patient tolerating nasal cannula supplementation. Continue cefepime. Discontinue vancomycin. DuoNebs 4 times daily scheduled Pulmonary embolism likely provoked, needs 3 months of anticoagulation. Currently receiving once daily Lovenox, full dose anticoagulation given her renal dysfunction and reduced creatinine clearance. Hemoglobin stable so far. Pending endoscopy and colonoscopy today.
[2024-03-19] MEDS: PEG-ELECTROLYTE SOLN 4000ML BOTTLE 4000 ML PO (09:52)
[2024-03-19 11:42] LABS: POC Glucose,Bedside 96 (70-110)
--- NOTE | 2024-03-19 11:56 | EXP.ACUTE.PN ---
Subjective *Date: 03/19/24 *Time: 20:54 Interval history: Patient stable on room air. Denies any chest pain, nausea, vomiting. Afebrile overnight. Denies abdominal pain. Stable on room air. Discussed home health nursing today, patient agreeable. No family at bedside today. Medical Exam Vital signs and Labs for Last 24 Hours: Vital Signs Temp Pulse Pulse Resp BP BP Pulse Ox 03/19/24 11:10 78 03/19/24 11:10 77 03/19/24 11:00 03/19/24 09:00 03/19/24 08:00 03/19/24 08:00 97.8 F 87 16 100/54 L 92 L 03/19/24 06:51 03/19/24 06:33 84 03/19/24 06:33 81 03/19/24 06:33 94 L 03/19/24 05:00 03/19/24 04:00 80 03/19/24 04:00 97.9 F 80 16 105/53 L 94 L 03/19/24 03:00 03/19/24 00:53 03/19/24 00:27 79 03/19/24 00:27 81 03/19/24 00:00 70 03/19/24 00:00 98.0 F 85 16 105/55 L 98 03/18/24 23:00 03/18/24 22:00 98.0 F 78 16 92/57 L 95 03/18/24 21:00 03/18/24 21:00 98.0 F 95 H 16 103/57 L 99 03/18/24 20:00 95 H 18 92/59 L 96 03/18/24 20:00 96 03/18/24 20:00 100 H 03/18/24 19:00 95 H 18 104/62 L 98 03/18/24 18:32 03/18/24 18:02 92 H 16 101/62 L 95 03/18/24 17:30 97.5 F L 90 16 107/54 L 96 03/18/24 17:00 93 H 18 103/56 L 100 03/18/24 16:53 03/18/24 16:30 117 H 18 109/71 L 99 03/18/24 16:00 90 03/18/24 16:00 115 H 18 112/61 97 03/18/24 15:45 102 H 18 113/64 97 03/18/24 15:30 98.0 F 108 H 16 109/59 L 96 03/18/24 15:15 98.0 F 91 H 16 119/69 97 03/18/24 15:15 03/18/24 15:00 74 18 127/68 100 03/18/24 14:55 76 18 118/74 99 03/18/24 14:50 101 H 18 119/69 99 03/18/24 14:45 100 H 16 122/70 99 03/18/24 14:45 98 H 100 H 18 122/70 99 03/18/24 14:05 98.0 F 60 15 122/63 99 03/18/24 13:05 82 03/18/24 13:05 80 03/18/24 13:05 97.8 F 111 H 18 98/69 L 96 03/18/24 13:00 03/18/24 12:40 98.0 F 108 H 18 99/62 L 95 03/18/24 12:00 100 H O2 Del Method O2 Flow Rate 03/19/24 11:10 03/19/24 11:10 03/19/24 11:00 Room Air 03/19/24 09:00 Room Air 03/19/24 08:00 Room Air 03/19/24 08:00 Room Air 03/19/24 06:51 Room Air 03/19/24 06:33 03/19/24 06:33 03/19/24 06:33 Room Air 03/19/24 05:00 Room Air 03/19/24 04:00 03/19/24 04:00 Room Air 03/19/24 03:00 Room Air 03/19/24 00:53 Room Air 03/19/24 00:27 03/19/24 00:27 03/19/24 00:00 03/19/24 00:00 Room Air 03/18/24 23:00 Room Air 03/18/24 22:00 Room Air 03/18/24 21:00 Room Air 03/18/24 21:00 Room Air 03/18/24 20:00 Room Air 03/18/24 20:00 Room Air 03/18/24 20:00 03/18/24 19:00 Room Air 03/18/24 18:32 Room Air 03/18/24 18:02 Room Air 03/18/24 17:30 Room Air 03/18/24 17:00 Room Air 03/18/24 16:53 Room Air 03/18/24 16:30 Room Air 03/18/24 16:00 03/18/24 16:00 Room Air 03/18/24 15:45 Room Air 03/18/24 15:30 Room Air 03/18/24 15:15 Room Air 03/18/24 15:15 Room Air 03/18/24 15:00 Room Air 03/18/24 14:55 Room Air 03/18/24 14:50 Room Air 03/18/24 14:45 Room Air 03/18/24 14:45 Room Air 03/18/24 14:05 03/18/24 13:05 03/18/24 13:05 03/18/24 13:05 03/18/24 13:00 Nasal Cannula 1 03/18/24 12:40 03/18/24 12:00 Intake and Output 03/18/24 03/19/24 03/19/24 23:59 07:59 15:59 Intake Total 342 / 692 Output Total 200 / 1625 500 / 1000 500 / 1000 Balance 142 / -933 -500 / -1000 -500 / -1000 Intake: Intake, Oral Amount 342 / 442 Output: Output, Urine Amount 200 / 1625 500 / 1000 500 / 1000 Other: Number of Unmeasured Voids 0 0 0 Number of Bowel Movements 1 Weight 61.416 kg Patient Weight 03/19/24 23:59 Weight 61.416 kg Laboratory Results - last 24 hr 03/17/24 15:28: Crossmatch (AHG) See Detail 03/18/24 12:00: POC Glucose 79 03/18/24 15:10: Hgb 9.9 L D, Hct 32.0 L 03/18/24 15:35: Activated Clotting Time 248 H* 03/18/24 20:15: POC Glucose 268 H 03/19/24 04:58: WBC 10.8, RBC 3.28 L, Hgb 9.5 L, Hct 30.1 L, MCV 91.8, MCH 29.0, MCHC 31.6 L, RDW 17.6 H, Plt Count 349, MPV 11.3 H, Neut % (Auto) 74.1, Lymph % (Auto) 16.5, Howard % (Auto) 6.3, Eos % (Auto) 1.9, Baso % (Auto) 0.5, Neut # (Auto) 8.0 H, Lymph # (Auto) 1.8, Howard # (Auto) 0.7, Eos # (Auto) 0.2, Baso # (Auto) 0.1, Sodium 138, Potassium 3.8, Chloride 106, Carbon Dioxide 22, Anion Gap 13.8, BUN 51 H, Creatinine 2.60 H, Estimated Creat Clear 22, Estimated GFR 19 L*, Est GFR ( Amer) 23 L, Glucose 63 L D, Calcium 8.3 L, Magnesium 1.9, Total Bilirubin 0.5, AST 45 H D, ALT 17 D, Alkaline Phosphatase 93, Total Protein 6.2 L, Albumin 3.5 D, Globulin 2.7, Albumin/Globulin Ratio 1.3 03/19/24 05:53: POC Glucose 85 03/19/24 11:35: POC Glucose 96 I & O for Labs for Last 24 Hours: Intake & Output 03/16/24 03/17/24 03/18/24 03/19/24 23:59 23:59 23:59 23:59 Intake Total 680 / 1070 1120 / 1120 692 / 692 Output Total 1850 / 1850 650 / 1350 1425 / 1625 1000 / 1000 Balance -1170 / -780 470 / -230 -733 / -933 -1000 / -1000 Weight 63.73 kg 63.27 kg 59.375 kg 61.416 kg Microbiology Reports for the Last 24 Hours: Microbiology 03/15/24 10:37 Blood Blood Culture - Preliminary NO GROWTH AFTER 4 DAYS 03/15/24 10:35 Blood Blood Culture - Preliminary NO GROWTH AFTER 4 DAYS 03/16/24 13:19 Sputum - Expectorated Sputum Gram Stain - Final 03/16/24 13:19 Sputum - Expectorated Sputum Sputum Culture - Final Constitutional: Present average body habitus, chronically ill appearing and cooperative Head: Present atraumatic and normocephalic ENT: Present normal exam Neck: Present normal inspection Respiratory: Present crackles and normal respiratory effort; Absent rhonchi or wheezes Cardiac: Present Reg Rate and Rhythm GI: Present soft and normal bowel sounds; Absent distention or tenderness Comments:: Urostomy in right lower abdomen Extremities: Present normal inspection and full ROM; Absent edema Skin: Present intact; Absent erythema Neuro: Present Grossly Intact, alert, awake and moves all extremities Comment:: Oriented to self and place. At baseline Assessment and Plan *Assessment and plan (1) Pneumonia: Status: Acute Qualifiers: Laterality: right Lung location: upper lobe of lung Pneumonia type: due to unspecified organism Qualified Code(s): J18.9 - Pneumonia, unspecified organism Category: Medical Code(s): J18.9 - Pneumonia, unspecified organism (2) Pulmonary embolism: Status: Acute Qualifiers: Pulmonary embolism type: single subsegmental (without acute cor pulmonale) Qualified Code(s): I26.93 - Single subsegmental thrombotic pulmonary embolism without acute cor pulmonale Category: Medical Code(s): I26.99 - Other pulmonary embolism without acute cor pulmonale (3) Status post mitral valve replacement: Status: Acute Category: Surgical Code(s): Z95.2 - Presence of prosthetic heart valve (4) Chronic endocarditis: Status: Acute Qualifiers: Endocarditis type: infective Infective endocarditis organism: bacterial Qualified Code(s): I33.0 - Acute and subacute infective endocarditis Category: Medical Code(s): I38 - Endocarditis, valve unspecified (5) Acute on chronic HFrEF (heart failure with reduced ejection fraction): Status: Acute Category: Medical Code(s): I50.23 - Acute on chronic systolic (congestive) heart failure (6) Anemia: Status: Acute Qualifiers: Anemia type: unspecified type Qualified Code(s): D64.9 - Anemia, unspecified Category: Medical Code(s): D64.9 - Anemia, unspecified (7) T2DM (type 2 diabetes mellitus): Status: Acute Qualifiers: Chronic kidney disease stage: stage 3 (moderate) Chronic kidney disease stage 3 subtype: stage 3a (GFR 45-59) Diabetes mellitus complication detail: with chronic kidney disease Diabetes mellitus complication status: with kidney complications Diabetes mellitus jail insulin use: with jail use Qualified Code(s): E11.22 - Type 2 diabetes mellitus with diabetic chronic kidney disease; N18.31 - Chronic kidney disease, stage 3a; Z79.4 - extermination inspector (current) use of insulin Category: Medical Code(s): E11.9 - Type 2 diabetes mellitus without complications (8) CAD (coronary artery disease): Status: Acute Qualifiers: Coronary Disease-Associated Artery/Lesion type: [place] artery Category: Medical Code(s): I25.10 - Atherosclerotic heart disease of [place] coronary artery without angina pectoris (9) Paroxysmal atrial fibrillation: Status: Acute Category: Medical Code(s): I48.0 - Paroxysmal atrial fibrillation Plan Laxmi Cronin is a 63-year-old female with a medical history significant for CAD s/p 2 stents 12/13/2023, HFrEF 40%, CABG 2015, AICD, A-fib s/p maze and MILLY clip, bioprosthetic mitral valve replacement with chronic endocarditis on penicillin daily (used to follow with ID, lost to follow-up), CKD 3A, insulin-dependent diabetes who who presents with several week onset of progressive shortness of breath, nonproductive cough. Patient is not the best historian, unable to tell me when her shortness of breath began getting worse. She states she has baseline dyspnea on exertion. Denies fever/chills, chest pain, upper respiratory symptoms abdominal pain, urinary symptoms. She states that she has felt difficulty breathing since being discharged from [facility] 7 days for acute renal failure, though she does not remember what exactly they did for her there. Workup in the ED significant for heart rate 130, BNP 3670, and CTA revealing right upper lobe pneumonia with left lower lobe pulmonary embolism. On room air saturating appropriately. Given vancomycin, cefepime, Lasix 40 in the ED. Case discussed with ED provider and decision was made to admit patient for hospital-acquired pneumonia, pulmonary embolism. Received transfusion yesterday. Hemoglobin 9.5 today. Stable on room air. Taken for panendoscopy today. Cardiology, GI, pulmonology assisting with care. Showing improvement. Monitor overnight after scope, anticipate discharge tomorrow. Problems addressed as follows: #Suspected hospital-acquired pneumonia #Right pleural effusion ? Discharged from [facility] about 7 days ago for acute renal failure, fecal disimpaction. Reviewed records, received bicarb drip with gradual improvement in kidney function. No dialysis performed. ? Progressive shortness of breath since then, CTA revealed right upper lobe pneumonia with left lower lobe pulmonary embolism. -Repeat chest x-ray obtained today showed more or less resolution of right lower lobe effusion per my review. -Discussed case with pulmonology, will discontinue vancomycin, continue cefepime for 7 days. Stable on room air. -Continue DuoNebs 4 times a day scheduled. No indication for thoracentesis #Pulmonary embolism, left lower lobe # Acute on chronic heart failure with reduced ejection fraction ? CTA revealed LLL PE. Heart rate improved in the lower 110s. On room air. Appears comfortable. - taken for left heart cath today. Echocardiogram obtained. Formal read with reduced ejection fraction of 35 to 40%. Severe hypokinesis in the distal inferoseptal and apical LV cid. No evidence of MV mobile echodensities. Biatrial dilatation. Left heart cath performed with following findings: Severe disease in the saphenous vein graft limb supplying the LAD; Successful stenting of the saphenous vein graft severe disease reduced to 0% with 1 drug-eluting stent -Will continue dual antiplatelet therapy for 30 days. Wean to Plavix at that time. Continue Lovenox for PE -Will transition to NOAC in the morning. -Ordered repeat CBC, CMP, magnesium for the morning #Acute on chronic anemia -Hemoglobin 9.5 today, white count 10.8. -Taken for colonoscopy and EGD. Found to have AVM and colonoscopy. Ablated. Atrophic gastritis on EGD. Discussed case with GI, suspects AVMs source of blood loss. -Status post Venofer x 1 on 03/17 ? Follow-up blood cultures in the setting of chronic endocarditis. #Type 2 diabetes ? Hemoglobin A1c 6.8 in early February 2024. ? LDSSI, ACHS glucose checks. ? Continue Lantus to 10 units nightly #CKD stage III ? Stable, BUN 51, creatinine 2.6, Continue to monitor with daily labs Full code DVT prophylaxis: Therapeutic Lovenox 1 mg/kg daily renally dosed resume diabetic diet
--- NOTE | 2024-03-19 12:37 | P.PN_ITS ---
Subjective Subjective Date: 03/19/24 Time: 12:00 Principal diagnosis: Afib with RVR,PE, acute on chronic HFrEF, abnormal echo Interval history: This is a 63-year-old female admitted with an acute PE as well as acute on chronic HFrEF, A-fib with RVR and abnormal echocardiogram. The patient underwent left cardiac catheterization yesterday and had stenting to her saphenous vein graft to the LAD with 1 drug-eluting stent. She tolerated the procedure well. This morning she states that she is feeling much better. She denies any chest pain or pressure. She denies any shortness of breath or edema. She denies any fever, chills, nausea, vomiting, diarrhea, PND orthopnea. The patient remains anemic this morning and is scheduled to undergo EGD/colonoscopy today. Exam Data for Last 24 hours Vital signs and Labs for Last 24 Hours: Temp Pulse Resp BP Pulse Ox O2 Del Method O2 Flow Rate 97.8 F 78 16 100/54 L 92 L Room Air 1 03/19/24 08:00 03/19/24 11:10 03/19/24 08:00 03/19/24 08:00 03/19/24 08:00 03/19/24 11:00 03/18/24 13:00 Laboratory Results - last 24 hr 03/17/24 15:28: Crossmatch (AHG) See Detail 03/18/24 15:10: Hgb 9.9 L D, Hct 32.0 L 03/18/24 15:35: Activated Clotting Time 248 H* 03/18/24 20:15: POC Glucose 268 H 03/19/24 04:58: WBC 10.8, RBC 3.28 L, Hgb 9.5 L, Hct 30.1 L, MCV 91.8, MCH 29.0, MCHC 31.6 L, RDW 17.6 H, Plt Count 349, MPV 11.3 H, Neut % (Auto) 74.1, Lymph % (Auto) 16.5, [place] % (Auto) 6.3, Eos % (Auto) 1.9, Baso % (Auto) 0.5, Neut # (Auto) 8.0 H, Lymph # (Auto) 1.8, [place] # (Auto) 0.7, Eos # (Auto) 0.2, Baso # (Auto) 0.1, Sodium 138, Potassium 3.8, Chloride 106, Carbon Dioxide 22, Anion Gap 13.8, BUN 51 H, Creatinine 2.60 H, Estimated Creat Clear 22, Estimated GFR 19 L*, Est GFR ( Amer) 23 L, Glucose 63 L D, Calcium 8.3 L, Magnesium 1.9, Total Bilirubin 0.5, AST 45 H D, ALT 17 D, Alkaline Phosphatase 93, Total Protein 6.2 L, Albumin 3.5 D, Globulin 2.7, Albumin/Globulin Ratio 1.3 03/19/24 05:53: POC Glucose 85 03/19/24 11:35: POC Glucose 96 I & O for Last 24 hours: Intake & Output 03/16/24 03/17/24 03/18/24 03/19/24 23:59 23:59 23:59 23:59 Intake Total 680 / 1070 1120 / 1120 692 / 692 Output Total 1850 / 1850 650 / 1350 1425 / 1625 1000 / 1000 Balance -1170 / -780 470 / -230 -733 / -933 -1000 / -1000 Weight 140 lb 8 oz 139 lb 7.783 oz 130 lb 14.4 oz 135 lb 6.4 oz Microbiology Reports for the Last 24 Hours: Microbiology 03/15/24 10:37 Blood Blood Culture - Preliminary NO GROWTH AFTER 4 DAYS 03/15/24 10:35 Blood Blood Culture - Preliminary NO GROWTH AFTER 4 DAYS 03/16/24 13:19 Sputum - Expectorated Sputum Gram Stain - Final 03/16/24 13:19 Sputum - Expectorated Sputum Sputum Culture - Final Constitutional Constitutional: no acute distress, average body habitus and chronically ill appearing *Routine HEENT Exam Head: Present normocephalic and atraumatic ENT: Present mucous membranes moist *Routine Neck Exam Neck: Present supple, full ROM and normal carotid upstroke; Absent JVD, carotid bruit or lymphadenopathy *Routine Respiratory Exam Respiratory: Present CTA bilaterally, normal respiratory effort, able to speak in complete sentences and symmetric chest movement *Routine Cardiovascular Exam Cardiovascular: Present Normal S1, Normal S2, murmur and irregularly irregular; Absent gallop *Routine Abdominal Exam Abdominal: Present soft and normoactive bowel sounds; Absent tenderness, distended or organomegaly *Routine Extremities Exam Extremities: Present full ROM, pulses intact and normal capillary refill; Absent cyanosis, clubbing or edema *Routine Skin Exam Skin: Present intact and warm; Absent erythema *Routine Neurological Exam Neurological: Present alert, oriented X3 and CN II-XII intact; Absent sensory deficit or motor deficit Routine Psychiatric Exam Psychiatric: Present normal affect Progress Note: A&P Assessment and plan (1) Pulmonary embolism: Status: Acute (2) Acute on chronic HFrEF (heart failure with reduced ejection fraction): Status: Acute (3) Atrial fibrillation: Status: Acute (4) CAD (coronary artery disease): Status: Acute (5) Pneumonia: Status: Acute (6) Status post mitral valve replacement: Status: Acute (7) Chronic endocarditis: Status: Acute (8) Anemia: Status: Acute (9) T2DM (type 2 diabetes mellitus): Status: Acute (10) Acute respiratory failure with hypoxia: Status: Acute (11) Pleural effusion on right: Status: Acute (12) CKD (chronic kidney disease): Status: Acute (13) H/O tricuspid valve replacement: Status: Chronic (14) Carotid artery stenosis: Status: Chronic (15) AICD (automatic cardioverter/defibrillator) present: Status: Chronic (16) PAD (peripheral artery disease): Status: Chronic (17) S/P left atrial appendage ligation: Status: Chronic Assessment and Plan Assessment and Plan for All Diagnoses:: Plan: 1. The patient was admitted to the hospital after presenting to the emergency department with shortness of breath. She is found to have a left lower lobe pulmonary embolus and a right upper lobe pneumonia. She is currently getting IV antibiotics. Pulmonology has been consulted. Will defer. 2. The patient does have an a pulmonary embolus. She has been started on Lovenox. She will need to be switched over to oral anticoagulation with Eliquis prior to discharge. 3. The patient also had an elevated BNP. She is having acute on chronic exacerbation of HFrEF. She remains on oral torsemide for continued diuresis. 4. The patient had interval reduction in her ejection fraction to 35 to 40% and new wall motion abnormalities. She underwent left cardiac catheterization yesterday and had stenting to the saphenous vein graft to LAD. The patient did tolerate the procedure well. 5. The patient will need to be on aspirin and Plavix for dual antiplatelet therapy. Restart aspirin 81 mg daily for 7 days. After 7 days the patient can discontinue aspirin and remain on Plavix 75 mg daily in addition to oral anticoagulation for her PE. 6. The patient does have a history of atrial fibrillation. She remains in chronic atrial fibrillation at this time with rate control. Continue Toprol and amiodarone. 7. She is status post maze procedure and left atrial appendage clip in 2022. She does not have to be on long-term anticoagulation for her atrial fibrillation. However, in the setting of her pulmonary embolus she will require anticoagulation for at least 6 months. 8. Continue Toprol, Farxiga and torsemide for HFrEF. 9. No DIMA/ARB/Entresto or spironolactone due to her renal function. 10. Her blood pressure is well-controlled. 11. Her LDL goal is less than 55. Her LDL is 67. She is on a statin. 12. The patient does have a history of infective endocarditis. She was following with infectious disease. She has been on chronic penicillin for the infective endocarditis. It does appear that the patient has been lost to follow-up with infectious disease. She was referred back to infectious disease recently but it does not look like the patient has went to her appointment. Case management is going to help facilitate this referral. 13. The patient is status post AICD placement. 14. The patient does have chronic kidney disease. Her creatinine is stable at 2.6. Will continue to follow her renal function. 15. The patient is anemic. She has received 1 unit of packed red blood cells on this admission. She is scheduled to undergo EGD/colonoscopy today due to her anemia. Following her EGD and colonoscopy her Lovenox can be switched over to Eliquis. 16. Further recommendations will be made pending the patient's response to treatment. Thank you for the opportunity to help participate in the care of this patient. All recommendations and orders are per Dr. Fowler.
[2024-03-19] MEDS: ASPIRIN EC 81MG TABLET 81 MG PO (12:56)
--- NOTE | 2024-03-19 15:12 | P.PCN_ITS ---
[facility] Procedure Note Date: 03/19/24 Time: 15:18 Procedure Note:: Upper Endoscopy Procedure Report: Esophagogastroduodenoscopy with cold biopsies Endoscopost: Tushar Lock II, MD Referring Physician: LISA Crawford Date of Procedure: March 19, 2024 Equipment: Olympus GIF 190 standard upper endoscope Sedation: MAC sedation Indications: Mrs. Cronin is a 63-year-old female who has had a drop in hemoglobin from 8.4 down to 7.1. Her hemoglobin was as high as 12.3 at the [facility] inning of February. The patient reports no abdominal pain or weight loss. She has had no melena, hematochezia or bright red blood per rectum. She has never had EGD or colonoscopy. She was on Plavix and aspirin at home but no NSAIDs. Procedure: Prior to the procedure, a history and physical exam was performed, and patient's medications and allergies were reviewed. The risks, benefits and alternatives of the sedation and procedure were discussed with the patient. All questions were answered and informed consent was obtained. The patient was brought to the procedure room. Patient identification and proposed procedure were verified by the physician and the nurse. The patient was placed in a left lateral decubitus position and the scope was passed under direct vision. Throughout the procedure, the patient's blood pressure, pulse, and oxygen saturations were monitored continuously. The upper GI endoscopy was accomplished without difficulty. The patient tolerated the procedure well. Findings: The scope was passed directly into the upper esophagus and advanced to the third portion of the duodenum. The post bulbar duodenum and duodenal bulb were normal with normal mucosa and conniventes. Cold biopsies were taken from the duodenum to rule out celiac disease. The scope was withdrawn through a normal duodenal bulb and pylorus into the stomach. There was mild antral gastro deysi. There was moderate atrophy of the body and fundus of the stomach consistent with atrophic gastritis. Biopsies were taken from the body and fundus of the stomach to rule out H. pylori and/or intestinal metaplasia. There was no hiatal hernia or Ephraim's erosions.. The scope was then withdrawn into the esophagus. There was no evidence of reflux esophagitis or Tejeda's. The remainder of the esophageal mucosa was normal. Impression: 1. Chronic atrophic gastritis Plan: I will follow-up biopsies. Certainly chronic atrophic gastritis is associated with reduced iron absorption. Etiologies are H. pylori versus autoimmune. Will check biopsies and send antiparietal cell antibody. Will proceed with diagnostic colonoscopy.
--- NOTE | 2024-03-19 15:33 | P.PCN_ITS ---
[facility] Procedure Note Date: 03/19/24 Time: 15:33 Procedure Note:: Colonoscopy with APC ablation and cold snare polypectomy and ileoscopy with TTS balloon dilation Endoscopist: Tushar Lock II, MD Referring physician: LISA Crawford Date of Procedure: March 19, 2024 Equipment: Olympus 190 variable stiffness pediatric colonoscope Sedation: MAC sedation Indication: Mrs. Cronin is a 63-year-old female with iron deficiency anemia who is here for panendoscopy. The patient has had dyspnea on exertion. The patient did have cardiac catheterization yesterday. She has had a prior ureteroileostomy. The anemia is new and her hemoglobin dropped from 8.4-7.1. She has never had EGD or colonoscopy. She has been on Plavix and aspirin. She reports no abdominal pain, weight loss or change in bowel habits. Procedure: Prior to the procedure, a history and physical exam was performed, and patient's medications and allergies were reviewed. The risks, benefits and alternatives of the sedation and procedure were discussed with the patient. All questions were answered and informed consent was obtained. The patient was brought to the procedure room. Patient identification and proposed procedure were verified by the physician and the nurse. The patient was placed in a left lateral decubitus position and the scope was passed under direct vision. Throughout the procedure, the patient's blood pressure, pulse, and oxygen saturations were monitored continuously. The colonoscopy was accomplished without difficulty. The patient tolerated the procedure well. Findings colonoscopy: On digital rectal examination there was normal rectal tone. There were external hemorrhoidal tags. The colonoscope was introduced through the anal canal to the rectum and advanced to the cecum. The ileocecal valve and appendiceal orifice were identified. The scope was advanced a short distance into the ileum which appeared grossly normal. The scope was then withdrawn into the colon. There was a angiodysplasia in the cecum that was 5 to 6 mm and nonbleeding. This was coagulated using APC ablation. There was a single 4 to 5 mm polyp in the descending colon removed via cold snare polypectomy. The remaining cecum, ascending, transverse, descending, sigmoid and rectum were grossly normal. There were no mucosal abnormalities identified. Upon retroflexion within the rectum there were grade 1-2 internal hemorrhoids. The preparation was excellent throughout with [place] Preparation Score of 9. The cecal time was 10 minutes. Findings ileoscopy: The upper endoscope was advanced into the stomal orifice. There was a stricture of the ileum 2 cm from the stoma impairing passage of the endoscope. This was gently dilated from my diameter of approximately 4 mm up to a diameter of 12 mm with a TTS hydrostatic balloon. The scope was then advanced more proximally to approximately 30 cm. There was evidence of normal ureteroileostomy proximally. Impression: 1. Cecal angiodysplasia status post APC ablation 2. Diminutive descending polyp 3. Ileostomy/ileal stenosis dilated from 4 mm to 12 mm with TTS hydrostatic balloon Plan: There was certainly no findings to explain any gross GI bleeding. I do feel that she could have occult bleeding from cecal angiodysplasia. She likely has low iron absorption (chronic atrophic gastritis). I will check iron studies and recommend parenteral iron infusion if she is low. Intravenous iron (IV) is underutilized for the treatment of anemia, and has numerous advantages compared to blood transfusion as well as oral iron. When iron is present, the bone marrow utilizes this iron to make red blood cells and the average life span of these red blood cells approximately 120 days. The average life span of a transfused red blood cell is about 30 days. This again supports the use of iron to make your own blood rather than receiving someone else's blood from a transfusion. There is a tremendous reduction of cost and resources with fewer complications including development of antibodies which can sometimes occur with blood transfusion.
--- NOTE | 2024-03-19 16:04 | P.PNANES_ITS ---
[facility] Disclaimer: The information contained in this section may have been updated after the patient was seen, as this information can be updated by other users. Medical History (Updated 03/19/24 @ 12:40 by Nataliya Hutchinson APRN) Atrial fibrillation Abnormal echocardiogram Atypical angina Acute respiratory failure with hypoxia Pleural effusion on right Chronic endocarditis Acute on chronic HFrEF (heart failure with reduced ejection fraction) Coronary artery disease Pacemaker at end of battery life Right kidney mass Pancreatic mass Vomiting Dental abscess Pain, dental Hematuria Complication of urostomy Nausea vomiting and diarrhea Hypotension Generalized weakness Hypovolemia E. coli UTI (urinary tract infection) Infection due to extended-spectrum [id number]-ciqadrtzi Klebsiella pneumoniae Yeast infection of the vagina Complicated UTI (urinary tract infection) STACY (acute kidney injury) Septic shock Severe sepsis with acute organ dysfunction Cellulitis Candidiasis Abdominal pannus Nausea & vomiting Presence of urostomy Presence of urostomy Vitamin D deficiency Biventricular cardiac pacemaker in situ Bacterial endocarditis Cardiac arrhythmia Bacteria present Obesity (BMI 30.0-34.9) Gastroenteritis due to norovirus Decreased blood volume Sepsis due to Streptococcus agalactiae Bacteremia Ileostomy in place Pacemaker Bladder cancer Diarrhea Fever UTI (urinary tract infection) Dehydration Diabetes mellitus Renal insufficiency Abscess of skin or subcutaneous tissue Renal insufficiency Valvular heart disease Palpitations Myocardial infarction HTN (hypertension), benign T2DM (type 2 diabetes mellitus) Depression CHF (congestive heart failure) Cancer Arrhythmia Anxiety Encounter for pre-operative cardiovascular clearance PAD (peripheral artery disease) Abnormal ankle brachial index (GOMEZ) PVD (peripheral vascular disease) HHD (hypertensive heart disease) Smoker HLD (hyperlipidemia) Carotid bruit Carotid artery stenosis CAD (coronary artery disease) Surgical History (Updated 03/17/24 @ 10:36 by Nataliya Hutchinson APRN) Status post mitral valve replacement Hx of tonsillectomy History of mitral valve replacement S/P left atrial appendage ligation AICD (automatic cardioverter/defibrillator) present H/O tricuspid valve replacement History of coronary artery bypass graft Family History Other Cancer Diabetes Heart attack Social History (Updated 03/15/24 @ 15:13 by Willa Gates RN) Smoking Status: Current every day smoker tobacco type: cigarettes packs per day: 1 second hand exposure: Yes alcohol intake: never substance use type: marijuana current occupational status: unemployed Travel in the last 8 weeks: None household members: family housing: house number of children: 2 current occupational exposures/hazards: No caffeine: Yes [facility] Anesthesia Checklist Patient Identification Patient Identification: Verbal (Name & ) Structural Data Admitted From: Home Planned Operative Procedure/s: egd,colonoscopy NPO Status Verified Time NPO: 00:00 Airway Assessment Mallampati Score:: Class II C-Spine Mobility Assessed: Yes TMJ Mobility Assessed: Yes Dentition: Poor Dentition Neurological Assessment Level of Consciousness: Awake, Alert and Appropriate Anesthesia Plan Anesthesia Risk discussed: Yes Anesthesia Plan: Verified ASA Class: III Anesthesia Type: MAC
--- NOTE | 2024-03-19 16:56 | PC.NURSE ---
patient remains a/ox4, tolerating room air. patient had EGD and colonoscopy this shift. she is awake and stating she feels good. she had several loose BM due to bowel prep prior to procedures. urostomy bag is clean dry and intact. call light within reach. no requests at this time
[2024-03-19 17:11] LABS: POC Glucose,Bedside 71 (70-110)
[2024-03-19 18:05] LABS: Iron 72 ug/dL (37-170)
[2024-03-19 18:11] LABS: Vancomycin,Trough 13.3 ug/mL (5.0-10.0)
[2024-03-19 18:14] LABS: Total Iron Binding Capacity 334 ug/dL (265-497)
[2024-03-19 18:43] LABS: Ferritin 116 ng/ml (11.1-264)
[2024-03-19 20:25] LABS: POC Glucose,Bedside 147 (70-110)
[2024-03-19] MEDS: TRAZODONE 50MG TABLET 50 MG PO (20:49)
[2024-03-19] MEDS: ROPINIROLE 1MG TABLET 1 MG PO (20:49)
[2024-03-19] MEDS: ENOXAPARIN 60MG/0.6ML SYRINGE 60 MG SUBCUT (20:49)
[2024-03-19] MEDS: ATORVASTATIN 40MG TABLET 40 MG PO (20:50)
[2024-03-19] MEDS: INSULIN GLARGINE 100 UNITS/ML 3ML FLEXPEN 10 UNIT SUBCUT (20:51)
[2024-03-19] MEDS: CITALOPRAM 20MG TABLET 20 MG PO (20:51)
[2024-03-19] MEDS: 0.9 % SODIUM CHLORIDE 500 ML IV (21:51)
[2024-03-20] VITALS: PULSE 90
--- NOTE | 2024-03-20 03:37 | PC.NURSE ---
alert to self and place, when asking pt what year it was she responded with i have no idea? , answered all other questions appropriately. pt has taken care of urostomy on her own, emptying it, etc. pt called out once stating urostomy leaked everywhere. cleaned pt up and adjusted bag, ensuring it completely closed. no issues since this. pt currently resting well, cb and bed alarm in place for pt safety.
[2024-03-20 04:00] VITALS: BP 103/67; PULSE 104; PULSE 110; RESP 18; TEMP 36.6; O2SAT 95; BMI 24.7
[2024-03-20 06:09] LABS: Basophils # 0.1 K/mm3 (0-0.2); Basophils % 0.6 % (0.1-2.0); Eosinophils # 0.3 K/mm3 (0.0-0.4); Eosinophils % 2.9 % (0.1-12.0); Hematocrit 29.6 % (37.0-47.0); Hemoglobin 9.2 g/dL (12.2-16.2); Lymphocytes # 1.1 K/mm3 (0.7-4.5); Lymphocytes % 12.3 % (10-50); Mean Corpuscular HGB Conc 31.1 g/dL (31.8-35.4); Mean Corpuscular Hemoglobin 28.7 pg (27.0-31.2); Mean Corpuscular Volume 92.2 fl (81-99); Mean Platelet Volume 11.6 fl (7.4-10.4); Monocytes # 0.5 K/mm3 (0.1-1.0); Monocytes % 5.7 % (1.7-9.3); Neutrophils # 6.9 K/mm3 (1.8-7.8); Neutrophils % 77.9 % (37.0-80.0); Platelet Count 344 K/mm3 (142-424); Red Blood Count 3.21 M/mm3 (4.20-5.40); Red Cell Distribution Width 17.7 % (11.5-17.5); White Blood Count 8.9 K/mm3 (4.8-10.8)
[2024-03-20 06:12] LABS: Albumin Level 3.5 g/dl (3.5-5.0); Chloride 105 mmol/L (98-107); Potassium 3.1 mmoL/L (3.5-5.1); Sodium 138 mmol/L (136-145)
[2024-03-20 06:15] LABS: Alanine Aminotransferase 16 U/L (12-78); Albumin/Globulin Ratio 1.3 (1.1-1.8); Alkaline Phosphatase 92 U/L (38-126); Anion Gap 9.1 mEq/L (5-15); Aspartate Amino Transferase 20 U/L (14-36); Bilirubin,Total 0.4 mg/dl (0.2-1.3); Blood Urea Nitrogen 42 mg/dl (7-17); Carbon Dioxide 27 mmol/L (22.0-30.0); Creatinine Clearance Estimated 22 mL/min (50-200); Estimated Glomerular Filt Rate 20 ml/min (>60); GFR (African American) 24 ML/MIN (>60); Globulin 2.6 g/dL (1.3-3.2); Total Protein,Serum 6.1 g/dl (6.3-8.2)
[2024-03-20 06:16] LABS: Calcium 8.6 mg/dl (8.4-10.2); Glucose 80 mg/dl (74-100); Magnesium 1.7 mg/dl (1.6-2.3)
[2024-03-20] MEDS: CEFEPIME HCL 1 GM in 0.9 % SODIUM CHLORIDE 50 ML IV (06:17)
[2024-03-20 06:26] VITALS: PULSE 91; PULSE 93; O2SAT 94
[2024-03-20] MEDS: IPRATROPIUM/ALBUTEROL 3 ML NEB IH ×2 (06:27→13:12)
[2024-03-20 08:00] VITALS: BP 109/65; PULSE 110; PULSE 90; RESP 18; TEMP 36.4; O2SAT 96
--- NOTE | 2024-03-20 08:12 | P.DS_ITS ---
General Admission date:: 03/15/24 Discharge date: 03/20/24 HPI HPI HPI: Laxmi Cronin is a 63-year-old female with a medical history significant for CAD s/p 2 stents 12/13/2023, HFrEF 40%, CABG 2016, AICD, A-fib s/p maze and MILLY clip, bioprosthetic mitral valve replacement with chronic endocarditis on penicillin daily (used to follow with ID, lost to follow-up), CKD 3A, insulin- dependent diabetes, hypothyroidism who who presents with several week onset of progressive shortness of breath, nonproductive cough. Patient is not the best historian, unable to tell me when her shortness of breath began getting worse. She states she has baseline dyspnea on exertion. Denies fever/chills, chest pain, upper respiratory symptoms abdominal pain, urinary symptoms. She states that she has felt difficulty breathing since being discharged from [facility] 7 days for acute renal failure, though she does not remember what exactly they did for her there. Workup in the ED significant for heart rate 130, BNP 3670, and CTA revealing right upper lobe pneumonia with left lower lobe pulmonary embolism. On room air saturating appropriately. Given vancomycin, cefepime, Lasix 40 in the ED. Case discussed with ED provider and decision was made to admit patient for hospital-acquired pneumonia, pulmonary embolism. Per admission H&P Therapeutic Lovenox added. Patient's hemoglobin dropped from 8.4 down to 7.1 overnight. Denies no melena or hematochezia. Was previously on Plavix and aspirin at home and denies other NSAID use. Hemoglobin as high as 12.3 at the beginning of February, dropped to 10.1 on 03/05/2024 and down to 8.5 as of 03/15/2024 yesterday. Patient has never had EGD or colonoscopy. Never had Cologuard testing. She denies any family history of colon cancer or other GI cancers. Denies any melena or hematochezia. She is awaiting cardiology consult to discuss need for triple therapy. Hospital Course Hospital Course Hospital Course: Laxmi Cronin is a 63-year-old female with a medical history significant for CAD s/p 2 stents 12/13/2023, HFrEF 40%, CABG 2016, AICD, A-fib s/p maze and MILLY clip, bioprosthetic mitral valve replacement with chronic endocarditis on penicillin daily (used to follow with ID, lost to follow-up), CKD 3A, insulin- dependent diabetes who who presents with several week onset of progressive shortness of breath, nonproductive cough. Patient is not the best historian, unable to tell me when her shortness of breath began getting worse. She states she has baseline dyspnea on exertion. Denies fever/chills, chest pain, upper respiratory symptoms abdominal pain, urinary symptoms. She states that she has felt difficulty breathing since being discharged from [facility] 7 days for acute renal failure, though she does not remember what exactly they did for her there. Workup in the ED significant for heart rate 130, BNP 3670, and CTA revealing right upper lobe pneumonia with left lower lobe pulmonary embolism. On room air saturating appropriately. Given vancomycin, cefepime, Lasix 40 in the ED. Case discussed with ED provider and decision was made to admit patient for hospital-acquired pneumonia, pulmonary embolism. Received transfusion during admission. Hemoglobin remained stable thereafter. Pulmonology, cardiology, GI were consulted to assist with care. Taken for panendoscopy after being taken for left heart cath. Will have close follow-up with subspecialist after discharge. Overall doing better. Problems addressed as follows during admission: #Suspected hospital-acquired pneumonia #Right pleural effusion ? Discharged from [facility] about 7 days ago for acute renal failure, fecal disimpaction. Reviewed records, received bicarb drip with gradual improvement in kidney function. No dialysis performed. Progressive shortness of breath since then, CTA revealed right upper lobe pneumonia with left lower lobe pulmonary embolism along with pleural effusion. Repeat imaging during admission showed resolution of her right lower lobe effusion. Remained stable on room air. Discussed case with pulmonology, patient was initially treated with cefepime and vancomycin. Antibiotics de-escalated to Levaquin renally dosed at discharge to complete 7 days total of therapy. Given resolution of pleural effusion, no indication for thoracentesis. #Pulmonary embolism, left lower lobe # Acute on chronic heart failure with reduced ejection fraction ? CTA revealed LLL PE. Heart rate improved in the lower 110s. On room air. Appears comfortable. taken for left heart cath during admission. Echocardiogram obtained. Formal read with reduced ejection fraction of 35 to 40 percent. Severe hypokinesis in the distal inferoseptal and apical LV cid. No evidence of MV mobile echodensities. Biatrial dilatation. Left heart cath performed with following findings: Severe disease in the saphenous vein graft limb supplying the LAD; Successful stenting of the saphenous vein graft severe disease reduced to 0% with 1 drug-eluting stent. Will continue dual antiplatelet therapy for 30 days. Wean to Plavix at that time. Treated with Lovenox during admission for PE. Transitioned to Eliquis 5 mg twice daily. Though patient has prosthetic mitral valve, she is being anticoagulated for PE not valvular disorder. Okay to continue NOAC for 3 months. Discontinue thereafter. #Acute on chronic anemia -Hemoglobin responded to transfusion. Stable in the 9 range. 9.2 on morning of discharge. Was taken for colonoscopy and EGD after heart cath. Found to have AVM and colonoscopy. Ablated. Atrophic gastritis on EGD. Discussed case with GI, suspects AVMs source of blood loss. Status post Venofer x 1 on 03/17 ? Follow-up blood cultures in the setting of chronic endocarditis. Continue daily penicillin for chronic endocarditis #Type 2 diabetes ? Hemoglobin A1c 6.8 in early February 2024. LDSSI, ACHS glucose checks during admission along with basal insulin. Continue home regimen at discharge including dapagliflozin, Lantus, and Novolin 70/30. Diabetes appears well-controlled on home regimen. #CKD stage III: Stable during admission. BUN 40-50 and creatinine mid 2 range throughout admission. Needs repeat labs in 1 to 2 weeks to monitor for stability. Total time spent on discharge 36 minutes in counseling, documentation, chart review, and direct care with patient. Exam Data for Last 24 hours Vital signs and Labs for Last 24 Hours: Temp Pulse Resp BP Pulse Ox O2 Del Method O2 Flow Rate 97.9 F 93 H 18 103/67 L 94 L Room Air 5 03/20/24 04:00 03/20/24 06:26 03/20/24 04:00 03/20/24 04:00 03/20/24 06:26 03/20/24 06:48 03/19/24 15:10 Laboratory Results - last 24 hr 03/19/24 11:35: POC Glucose 96 03/19/24 17:03: POC Glucose 71 03/19/24 17:15: Iron 72, TIBC 334, Iron Saturation 21.27328, Ferritin 116 D, Vancomycin Trough 13.3 H 03/19/24 20:17: POC Glucose 147 H 03/20/24 04:37: WBC 8.9, RBC 3.21 L, Hgb 9.2 L, Hct 29.6 L, MCV 92.2, MCH 28.7, MCHC 31.1 L, RDW 17.7 H, Plt Count 344, MPV 11.6 H, Neut % (Auto) 77.9, Lymph % (Auto) 12.3, [place] % (Auto) 5.7, Eos % (Auto) 2.9, Baso % (Auto) 0.6, Neut # (Auto) 6.9, Lymph # (Auto) 1.1, [place] # (Auto) 0.5, Eos # (Auto) 0.3, Baso # (Auto) 0.1, Sodium 138, Potassium 3.1 L, Chloride 105, Carbon Dioxide 27, Anion Gap 9.1, BUN 42 H, Creatinine 2.50 H, Estimated Creat Clear 22, Estimated GFR 20 L, Est GFR ( Amer) 24 L, Glucose 80 D, Calcium 8.6, Magnesium 1.7 D, Total Bilirubin 0.4, AST 20 D, ALT 16, Alkaline Phosphatase 92, Total Protein 6.1 L, Albumin 3.5, Globulin 2.6, Albumin/Globulin Ratio 1.3 I & O for Last 24 hours: Intake & Output 03/17/24 03/18/24 03/19/24 03/20/24 23:59 23:59 23:59 23:59 Intake Total 1120 / 1120 692 / 692 360 / 360 Output Total 650 / 1350 1425 / 1625 1800 / 2150 350 / 350 Balance 470 / -230 -733 / -933 -1440 / -1790 -350 / -350 Weight 63.27 kg 59.375 kg 61.416 kg 59.466 kg Microbiology Reports for the Last 24 Hours: Microbiology 03/15/24 10:37 Blood Blood Culture - Preliminary NO GROWTH AFTER 4 DAYS 03/15/24 10:35 Blood Blood Culture - Preliminary NO GROWTH AFTER 4 DAYS Constitutional Constitutional: no acute distress, chronically ill appearing and cooperative *Routine HEENT Exam Head: Present normocephalic Eye: Present EOMI and PERRL ENT: Present mucous membranes moist *Routine Neck Exam Neck: Present supple; Absent lymphadenopathy *Routine Respiratory Exam Respiratory: Present CTA bilaterally; Absent rhonchi, wheezes or crackles *Routine Cardiovascular Exam Cardiovascular: Present RRR *Routine Abdominal Exam Abdominal: Present soft and normoactive bowel sounds; Absent tenderness Comments: Urostomy stable *Routine Rectal Exam Patient deferred: visual exam *Routine Exam Patient deferred: external exam *Routine Extremities Exam Extremities: Absent cyanosis, clubbing or edema *Routine Skin Exam Skin: Present warm; Absent rash *Routine Neurological Exam Neurological: Present alert and moving all extremities; Absent altered mental status Comments: Slow mentation. Family at bedside Results Data Completed and Pending Labs on day of discharge: Labs from last 24 hours 03/20/24 03/19/24 03/19/24 04:37 20:17 17:15 WBC 8.9 RBC 3.21 L Hgb 9.2 L Hct 29.6 L MCV 92.2 MCH 28.7 MCHC 31.1 L RDW 17.7 H Plt Count 344 MPV 11.6 H Neut % (Auto) 77.9 Lymph % (Auto) 12.3 [place] % (Auto) 5.7 Eos % (Auto) 2.9 Baso % (Auto) 0.6 Neut # (Auto) 6.9 Lymph # (Auto) 1.1 [place] # (Auto) 0.5 Eos # (Auto) 0.3 Baso # (Auto) 0.1 Sodium 138 Potassium 3.1 L Chloride 105 Carbon Dioxide 27 Anion Gap 9.1 BUN 42 H Creatinine 2.50 H Estimated Creat Clear 22 Estimated GFR 20 L Est GFR ( Amer) 24 L Glucose 80 D POC Glucose 147 H Calcium 8.6 Magnesium 1.7 D Iron 72 TIBC 334 Iron Saturation 21.48560 Ferritin 116 D Total Bilirubin 0.4 AST 20 D ALT 16 Alkaline Phosphatase 92 Total Protein 6.1 L Albumin 3.5 Globulin 2.6 Albumin/Globulin Ratio 1.3 Vancomycin Trough 13.3 H 03/19/24 03/19/24 17:03 11:35 WBC RBC Hgb Hct MCV MCH MCHC RDW Plt Count MPV Neut % (Auto) Lymph % (Auto) [place] % (Auto) Eos % (Auto) Baso % (Auto) Neut # (Auto) Lymph # (Auto) [place] # (Auto) Eos # (Auto) Baso # (Auto) Sodium Potassium Chloride Carbon Dioxide Anion Gap BUN Creatinine Estimated Creat Clear Estimated GFR Est GFR ( Amer) Glucose POC Glucose 71 96 Calcium Magnesium Iron TIBC Iron Saturation Ferritin Total Bilirubin AST ALT Alkaline Phosphatase Total Protein Albumin Globulin Albumin/Globulin Ratio Vancomycin Trough Preliminary micro results at discharge 03/15/24 10:37 Blood Culture - Preliminary Blood NO GROWTH AFTER 4 DAYS 03/15/24 10:35 Blood Culture - Preliminary Blood NO GROWTH AFTER 4 DAYS DS: Diagnosis Discharge Diagnosis (1) Pneumonia: Status: Acute Code(s): J18.9 - Pneumonia, unspecified organism Qualifiers: Laterality: right Lung location: upper lobe of lung Pneumonia type: due to unspecified organism Qualified Code(s): J18.9 - Pneumonia, unspecified organism (2) Pulmonary embolism: Status: Acute Code(s): I26.99 - Other pulmonary embolism without acute cor pulmonale Qualifiers: Pulmonary embolism type: single subsegmental (without acute cor pulmonale) Qualified Code(s): I26.93 - Single subsegmental thrombotic pulmonary embolism without acute cor pulmonale (3) Status post mitral valve replacement: Status: Acute Code(s): Z95.2 - Presence of prosthetic heart valve (4) Chronic endocarditis: Status: Acute Code(s): I38 - Endocarditis, valve unspecified Qualifiers: Endocarditis type: infective Infective endocarditis organism: bacterial Qualified Code(s): I33.0 - Acute and subacute infective endocarditis (5) Acute on chronic HFrEF (heart failure with reduced ejection fraction): Status: Acute Code(s): I50.23 - Acute on chronic systolic (congestive) heart failure (6) Anemia: Status: Acute Code(s): D64.9 - Anemia, unspecified Qualifiers: Anemia type: unspecified type Qualified Code(s): D64.9 - Anemia, unspecified (7) T2DM (type 2 diabetes mellitus): Status: Acute Code(s): E11.9 - Type 2 diabetes mellitus without complications Qualifiers: Chronic kidney disease stage: stage 3 (moderate) Chronic kidney disease stage 3 subtype: stage 3a (GFR 45-59) Diabetes mellitus complication detail: with chronic kidney disease Diabetes mellitus complication status: with kidney complications Diabetes mellitus vice president marketing [employer] development insulin use: with vice president marketing & development use Qualified Code(s): E11.22 - Type 2 diabetes mellitus with diabetic chronic kidney disease; N18.31 - Chronic kidney disease, stage 3a; Z79.4 - senior living (current) use of insulin (8) CAD (coronary artery disease): Status: Acute Code(s): I25.10 - Atherosclerotic heart disease of [place] coronary artery without angina pectoris Qualifiers: Coronary Disease-Associated Artery/Lesion type: [place] artery (9) Paroxysmal atrial fibrillation: Status: Acute Code(s): I48.0 - Paroxysmal atrial fibrillation Meds Home Medications and Allergies Home Medications ?Medication ?Instructions ?Recorded ?Confirmed ?Type alprazolam 0.5 mg tablet 0.5 mg PO BIDP PRN Anxiety 12/12/23 03/15/24 History cholecalciferol (vitamin D3) 25 25 mcg PO DAILY 12/12/23 03/15/24 History mcg (1,000 unit) tablet citalopram 20 mg tablet 20 mg PO HS 12/12/23 03/15/24 History insulin glargine 100 unit/mL (3 8 unit SQ HS 12/12/23 03/15/24 History mL) subcutaneous pen (Lantus Solostar U-100 Insulin) insulin human U-100 NPH-regulr 6 unit SQ BID 12/12/23 03/15/24 History 70-30 mix 100 unit/mL subcutaneous susp (Novolin 70/30 U-100 Insulin) trazodone 50 mg tablet 50 mg PO HS 12/12/23 03/15/24 History aspirin 81 mg tablet,delayed 81 mg PO DAILY 30 days #30 tabs 12/14/23 03/15/24 Rx release atorvastatin 40 mg tablet 40 mg PO HS 30 days #30 tabs 12/14/23 03/15/24 Rx clopidogrel 75 mg tablet 75 mg PO DAILY 30 days #30 tabs 12/14/23 03/15/24 Rx cariprazine 1.5 mg capsule 1.5 mg PO DAILY 01/23/24 03/15/24 History (Vraylar) dapagliflozin propanediol 10 mg 10 mg PO DAILY #30 tabs 01/23/24 03/15/24 Rx tablet (Farxiga) ropinirole 1 mg tablet 1 mg PO DAILY 01/23/24 03/15/24 History amiodarone 200 mg tablet 200 mg PO DAILY 03/15/24 03/15/24 History penicillin V potassium 250 mg 250 mg PO BID 03/15/24 03/15/24 History tablet apixaban 5 mg tablet (Eliquis) See Rx Instructions .Route 03/20/24 Rx .COMPLEX #74 tabs aspirin 81 mg tablet,delayed 81 mg PO DAILY 5 days #5 tabs 03/20/24 Rx release levofloxacin 750 mg tablet 750 mg PO Q48H 3 days #2 tabs 03/20/24 Rx metoprolol tartrate 25 mg tablet 25 mg PO BID #60 tabs 03/20/24 Rx pantoprazole 40 mg tablet,delayed 40 mg PO HS 30 days #30 tabs 03/20/24 Rx release torsemide 20 mg tablet 20 mg PO DAILY 30 days #30 tabs 03/20/24 Rx New Prescriptions to Start Prescriptions: apixaban [Eliquis] Mary,Vincent aspirin Mary,Vincent levofloxacin Mary,Vincent metoprolol tartrate Mary,Vincent pantoprazole Mary,Vincent torsemide Mary,Vincent Allergies Allergy/AdvReac Type Severity Reaction Status Date / Time No Known Allergies Allergy Verified 03/15/24 10:28 Discharge Plan Disposition Patient Disposition: Home Health Service Condition: Fair Discharge Order Discharge Orders: Discharge Order (Routine); Ordered 03/20/24 Ordered By: Vincent Hernandez Follow up Plan Follow up with: Tushar Lock II, MD [Staff Physician] - Enter time for follow up (office will call patient) Ivonne Jones APRN [Primary Care Provider] - 03/27/24 3:00 pm Rina Hector MD [Physician] - 04/29/24 1:00 pm Oh Fowler MD [Staff Physician] - 04/08/24 2:45 pm Prescriptions/Medication Reconciliation: New metoprolol tartrate 25 mg Tablet 25 mg PO BID Qty: 60 0RF levofloxacin 750 mg tablet 750 mg PO Q48H 3 Days Qty: 2 0RF Rx Instructions: first dose 03/21/24 torsemide 20 mg Tablet 20 mg PO DAILY 30 Days Qty: 30 0RF aspirin 81 mg Tablet,Delayed Release (Dr/Ec) 81 mg PO DAILY 5 Days Qty: 5 0RF pantoprazole 40 mg Tablet,Delayed Release (Dr/Ec) 40 mg PO HS 30 Days Qty: 30 0RF Eliquis 5 mg tablet See Rx Instructions .ROUTE .COMPLEX Qty: 74 0RF Rx Instructions: 10 mg twice daily for 7 days followed by 5 mg twice a day thereafter. Continued ropinirole 1 mg tablet 1 mg PO DAILY Vraylar 1.5 mg capsule 1.5 mg PO DAILY dapagliflozin propanediol [Farxiga] 10 mg tablet 10 mg PO DAILY Qty: 30 2RF trazodone 50 mg tablet 50 mg PO HS alprazolam 0.5 mg tablet 0.5 mg PO BIDP PRN (Reason: Anxiety) citalopram 20 mg tablet 20 mg PO HS Novolin 70/30 U-100 Insulin 100 unit/mL (70-30) suspension 6 unit SQ BID cholecalciferol (vitamin D3) 25 mcg (1,000 unit) Tablet 25 mcg PO DAILY insulin glargine [Lantus Solostar U-100 Insulin] 100 unit/mL (3 mL) insulin pen 8 unit SQ HS atorvastatin 40 mg Tablet 40 mg PO HS 30 Days Qty: 30 0RF clopidogrel 75 mg tablet 75 mg PO DAILY 30 Days Qty: 30 0RF Patient Comments: TAKE ONE TABLET BY MOUTH ONCE A DAY aspirin 81 mg Tablet,Delayed Release (Dr/Ec) 81 mg PO DAILY 30 Days Qty: 30 0RF amiodarone 200 mg tablet 200 mg PO DAILY penicillin V potassium 250 mg tablet 250 mg PO BID Problem Reconciliation Problems Reviewed?: Yes Patient Discharge Instructions ACTIVITY: Continue current activity DIET: continue same diet Patient Instructions: DI for Heart Failure, DI for Pneumonia -- Adult, DI for Pulmonary Embolism, DI for Atrial Fibrillation Print Language: [place] Providers Primary Care Provider: Ivonne Jones Admit Provider: Demetri Santoyo Attending Provider: Demetri Santoyo
[2024-03-20] MEDS: POTASSIUM CHLORIDE 20MEQ TAB 40 MEQ PO (08:15)
[2024-03-20] MEDS: MAGNESIUM SULFATE IN WATER 2 GM/50 ML PIGGYBACK IV (08:15)
[2024-03-20] MEDS: TORSEMIDE 20MG TABLET 20 MG PO (08:16)
[2024-03-20] MEDS: METOPROLOL TARTRATE 25MG TABLET 25 MG PO (08:16)
[2024-03-20] MEDS: CLOPIDOGREL 75MG TAB 75 MG PO (08:16)
[2024-03-20] MEDS: AMIODARONE 200MG TABLET 200 MG PO (08:16)
[2024-03-20] MEDS: FOLIC ACID 1MG TABLET 1 MG PO (08:16)
[2024-03-20] MEDS: PANTOPRAZOLE 40MG TABLET 40 MG PO (08:17)
[2024-03-20] MEDS: ASPIRIN EC 81MG TABLET 81 MG PO (08:17)
--- NOTE | 2024-03-20 08:53 | P.PN_ITS ---
Subjective Subjective Date: 03/20/24 Time: 08:30 Principal diagnosis: Afib with RVR,PE, acute on chronic HFrEF, abnormal echo Interval history: This is a 63-year-old female who was admitted to the hospital and found to have an acute pulmonary embolus as well as an acute on chronic exacerbation of HFrEF. She was also in atrial fibrillation with RVR which is now rate controlled. The patient had an abnormal echocardiogram and underwent left cardiac catheterization and had stenting to the saphenous vein graft to the LAD with multiple drug-eluting stent. The patient has also had some profound anemia during her hospitalization and underwent EGD and colonoscopy yesterday. Please see those reports. Today she states that she feels really well. She denies any chest pain or pressure. She denies any shortness of breath or edema. She denies any fever, chills, nausea, vomiting, diarrhea, PND or orthopnea. Exam Data for Last 24 hours Vital signs and Labs for Last 24 Hours: Temp Pulse Resp BP Pulse Ox O2 Del Method O2 Flow Rate 97.9 F 93 H 18 103/67 L 94 L Room Air 5 03/20/24 04:00 03/20/24 06:26 03/20/24 04:00 03/20/24 04:00 03/20/24 06:26 03/20/24 08:00 03/19/24 15:10 Laboratory Results - last 24 hr 03/19/24 11:35: POC Glucose 96 03/19/24 17:03: POC Glucose 71 03/19/24 17:15: Iron 72, TIBC 334, Iron Saturation 21.46419, Ferritin 116 D, Vancomycin Trough 13.3 H 03/19/24 20:17: POC Glucose 147 H 03/20/24 04:37: WBC 8.9, RBC 3.21 L, Hgb 9.2 L, Hct 29.6 L, MCV 92.2, MCH 28.7, MCHC 31.1 L, RDW 17.7 H, Plt Count 344, MPV 11.6 H, Neut % (Auto) 77.9, Lymph % (Auto) 12.3, [place] % (Auto) 5.7, Eos % (Auto) 2.9, Baso % (Auto) 0.6, Neut # (Auto) 6.9, Lymph # (Auto) 1.1, [place] # (Auto) 0.5, Eos # (Auto) 0.3, Baso # (Auto) 0.1, Sodium 138, Potassium 3.1 L, Chloride 105, Carbon Dioxide 27, Anion Gap 9.1, BUN 42 H, Creatinine 2.50 H, Estimated Creat Clear 22, Estimated GFR 20 L, Est GFR ( Amer) 24 L, Glucose 80 D, Calcium 8.6, Magnesium 1.7 D, Total Bilirubin 0.4, AST 20 D, ALT 16, Alkaline Phosphatase 92, Total Protein 6.1 L, Albumin 3.5, Globulin 2.6, Albumin/Globulin Ratio 1.3 I & O for Last 24 hours: Intake & Output 03/17/24 03/18/24 03/19/24 03/20/24 23:59 23:59 23:59 23:59 Intake Total 1120 / 1120 692 / 692 360 / 360 200 / 200 Output Total 650 / 1350 1425 / 1625 1800 / 2150 350 / 350 Balance 470 / -230 -733 / -933 -1440 / -1790 -150 / -150 Weight 139 lb 7.783 oz 130 lb 14.4 oz 135 lb 6.4 oz 131 lb 1.6 oz Microbiology Reports for the Last 24 Hours: Microbiology 03/15/24 10:37 Blood Blood Culture - Preliminary NO GROWTH AFTER 4 DAYS 03/15/24 10:35 Blood Blood Culture - Preliminary NO GROWTH AFTER 4 DAYS Constitutional Constitutional: no acute distress, average body habitus and chronically ill appearing *Routine HEENT Exam Head: Present normocephalic and atraumatic ENT: Present mucous membranes moist *Routine Neck Exam Neck: Present supple, full ROM and normal carotid upstroke; Absent JVD, carotid bruit or lymphadenopathy *Routine Respiratory Exam Respiratory: Present CTA bilaterally, normal respiratory effort, able to speak in complete sentences and symmetric chest movement *Routine Cardiovascular Exam Cardiovascular: Present Normal S1, Normal S2, murmur and irregularly irregular; Absent gallop *Routine Abdominal Exam Abdominal: Present soft and normoactive bowel sounds; Absent tenderness, distended or organomegaly *Routine Extremities Exam Extremities: Present full ROM, pulses intact and normal capillary refill; Absent cyanosis, clubbing or edema *Routine Skin Exam Skin: Present intact and warm; Absent erythema *Routine Neurological Exam Neurological: Present alert, oriented X3 and CN II-XII intact; Absent sensory deficit or motor deficit Routine Psychiatric Exam Psychiatric: Present normal affect Progress Note: A&P Assessment and plan (1) CAD (coronary artery disease): Status: Acute (2) Acute on chronic HFrEF (heart failure with reduced ejection fraction): Status: Acute (3) Atrial fibrillation: Status: Acute (4) Pneumonia: Status: Acute (5) Pulmonary embolism: Status: Acute (6) Status post mitral valve replacement: Status: Acute (7) Chronic endocarditis: Status: Acute (8) Anemia: Status: Acute (9) T2DM (type 2 diabetes mellitus): Status: Acute (10) Abnormal echocardiogram: Status: Acute (11) Acute respiratory failure with hypoxia: Status: Acute (12) Pleural effusion on right: Status: Acute (13) CKD (chronic kidney disease): Status: Acute (14) S/P left atrial appendage ligation: Status: Chronic (15) PAD (peripheral artery disease): Status: Chronic (16) AICD (automatic cardioverter/defibrillator) present: Status: Chronic (17) H/O tricuspid valve replacement: Status: Chronic (18) Carotid artery stenosis: Status: Chronic Assessment and Plan Assessment and Plan for All Diagnoses:: Plan: 1. The patient was admitted to the hospital after presenting to the emergency department with shortness of breath. She is found to have a left lower lobe pulmonary embolus and a right upper lobe pneumonia. She is currently getting antibiotics. Pulmonology has been consulted. Will defer. 2. The patient does have an a pulmonary embolus. She has been started on Lovenox. Prior to discharge home she will need to be switched over to Eliquis 5 mg p.o. twice daily. 3. The patient also had an elevated BNP. She is having acute on chronic exacerbation of HFrEF. She remains on oral torsemide for continued diuresis. 4. The patient had interval reduction in her ejection fraction to 35 to 40% and new wall motion abnormalities. She underwent left cardiac catheterization yesterday and had stenting to the saphenous vein graft to LAD. The patient did tolerate the procedure well. 5. The patient will need to be on aspirin and Plavix for dual antiplatelet t herapy. Restart aspirin 81 mg daily for 7 days. After 7 days the patient can discontinue aspirin and remain on Plavix 75 mg daily in addition to oral anticoagulation for her PE. 6. The patient does have a history of atrial fibrillation. She remains in chronic atrial fibrillation at this time with rate control. Continue Toprol and amiodarone. 7. She is status post maze procedure and left atrial appendage clip in 2022. She does not have to be on long-term anticoagulation for her atrial fibrillation. However, in the setting of her pulmonary embolus she will require anticoagulation for at least 6 months. 8. Continue Toprol, Farxiga and torsemide for HFrEF. 9. No DIMA/ARB/Entresto or spironolactone due to her renal function. 10. Her blood pressure is well-controlled. 11. Her LDL goal is less than 55. Her LDL is 67. She is on a statin. 12. The patient does have a history of infective endocarditis. She was following with infectious disease. She has been on chronic penicillin for the infective endocarditis. It does appear that the patient has been lost to follow-up with infectious disease. She was referred back to infectious disease recently but it does not look like the patient has went to her appointment. Case management is going to help facilitate this referral. 13. The patient is status post AICD placement. 14. The patient does have chronic kidney disease. Her creatinine is stable at 2.5. Will continue to follow her renal function. 15. The patient is anemic. She has received 1 unit of packed red blood cells on this admission. She underwent EGD and colonoscopy yesterday which showed no active signs of bleeding. Will defer management of her anemia to GI. 16. No further recommendations at this time from a cardiac standpoint. She is stable for discharge home from a cardiac standpoint once she is medically optimized. She will need to follow-up in cardiology clinic in 1 to 2 weeks. She can be discharged on the following cardiac medications: Amiodarone 200 mg p.o. daily, aspirin 81 mg daily for 7 days then discontinue, Lipitor 40 mg p.o. nightly, Plavix 75 mg daily, metoprolol tartrate 25 mg p.o. twice daily, Protonix 40 mg p.o. twice daily, torsemide 20 mg p.o. daily and Farxiga 10 mg p.o. daily. No DIMA/ARB/Entresto or spironolactone due to her renal function. Thank you for the opportunity to help participate in the care of this patient. All recommendations and orders are per Dr. Fowler.
--- NOTE | 2024-03-20 09:46 | EXP.PULM.PN ---
Subjective *Date: 03/20/24 *Time: 13:49 Pulmonology Exam Inpatient Vital signs and Labs for Last 24 Hours: Temp Pulse Resp BP Pulse Ox O2 Del Method O2 Flow Rate 97.5 F L 90 18 109/65 L 96 Room Air 5 03/20/24 08:00 03/20/24 08:00 03/20/24 08:00 03/20/24 08:00 03/20/24 08:00 03/20/24 09:00 03/19/24 15:10 Laboratory Results - last 24 hr 03/19/24 11:35: POC Glucose 96 03/19/24 17:03: POC Glucose 71 03/19/24 17:15: Iron 72, TIBC 334, Iron Saturation 21.59374, Ferritin 116 D, Vancomycin Trough 13.3 H 03/19/24 20:17: POC Glucose 147 H 03/20/24 04:37: WBC 8.9, RBC 3.21 L, Hgb 9.2 L, Hct 29.6 L, MCV 92.2, MCH 28.7, MCHC 31.1 L, RDW 17.7 H, Plt Count 344, MPV 11.6 H, Neut % (Auto) 77.9, Lymph % (Auto) 12.3, [place] % (Auto) 5.7, Eos % (Auto) 2.9, Baso % (Auto) 0.6, Neut # (Auto) 6.9, Lymph # (Auto) 1.1, [place] # (Auto) 0.5, Eos # (Auto) 0.3, Baso # (Auto) 0.1, Sodium 138, Potassium 3.1 L, Chloride 105, Carbon Dioxide 27, Anion Gap 9.1, BUN 42 H, Creatinine 2.50 H, Estimated Creat Clear 22, Estimated GFR 20 L, Est GFR ( Amer) 24 L, Glucose 80 D, Calcium 8.6, Magnesium 1.7 D, Total Bilirubin 0.4, AST 20 D, ALT 16, Alkaline Phosphatase 92, Total Protein 6.1 L, Albumin 3.5, Globulin 2.6, Albumin/Globulin Ratio 1.3 Temp Pulse Resp BP Pulse Ox O2 Del Method 98 F 116 H 16 116/73 93 L Room Air 03/17/24 08:00 03/17/24 08:00 03/17/24 08:00 03/17/24 08:00 03/17/24 08:00 03/17/24 08:00 Laboratory Results - last 24 hr 03/16/24 10:47: POC Glucose 348 H* 03/16/24 13:25: Hgb 7.4 L, Hct 24.0 L 03/16/24 16:13: POC Glucose 78 03/16/24 21:22: POC Glucose 217 H 03/17/24 05:58: WBC 12.8 H D, RBC 2.64 L, Hgb 7.5 L, Hct 25.1 L, MCV 95.1, MCH 28.4, MCHC 29.9 L, RDW 19.0 H, Plt Count 279, MPV 12.2 H, Neut % (Auto) 80.9 H, Lymph % (Auto) 12.8, [place] % (Auto) 5.1, Eos % (Auto) 0.4, Baso % (Auto) 0.3, Neut # (Auto) 10.3 H, Lymph # (Auto) 1.6, [place] # (Auto) 0.7, Eos # (Auto) 0.1, Baso # (Auto) 0.0, Sodium 139, Potassium 4.0, Chloride 110 H, Carbon Dioxide 19 L, Anion Gap 14.0, BUN 49 H, Creatinine 2.20 H, Estimated Creat Clear 27, Estimated GFR 23 L, Est GFR ( Amer) 27 L, Glucose 69 L D, Calcium 8.3 L, Magnesium 1.9, Total Bilirubin 0.4, AST 46 H D, ALT 25 D, Alkaline Phosphatase 105, Total Protein 6.1 L, Albumin 3.3 L, Globulin 2.8, Albumin/Globulin Ratio 1.2 03/17/24 06:06: POC Glucose 101 I & O for Labs for Last 24 Hours: Intake & Output 03/17/24 03/18/24 03/19/24 03/20/24 23:59 23:59 23:59 23:59 Intake Total 1120 / 1120 692 / 692 360 / 360 200 / 200 Output Total 650 / 1350 1425 / 1625 1800 / 2150 350 / 350 Balance 470 / -230 -733 / -933 -1440 / -1790 -150 / -150 Weight 139 lb 7.783 oz 130 lb 14.4 oz 135 lb 6.4 oz 131 lb 1.6 oz Intake & Output 03/14/24 03/15/24 03/16/24 03/17/24 23:59 23:59 23:59 23:59 Intake Total 240 / 440 680 / 1070 390 / 390 Output Total 1225 / 1225 1850 / 1850 0 / 0 Balance -985 / -785 -1170 / -780 390 / 390 Weight 139 lb 3.2 oz 140 lb 8 oz 139 lb 8 oz Microbiology Reports for the Last 24 Hours: Microbiology 03/15/24 10:37 Blood Blood Culture - Preliminary NO GROWTH AFTER 4 DAYS 03/15/24 10:35 Blood Blood Culture - Preliminary NO GROWTH AFTER 4 DAYS Microbiology 03/16/24 13:19 Sputum - Expectorated Sputum Gram Stain - Final 03/15/24 10:37 Blood Blood Culture - Preliminary NO GROWTH AFTER 24 HOURS 03/15/24 10:35 Blood Blood Culture - Preliminary NO GROWTH AFTER 24 HOURS Constitutional: Present moderate distress Head: Present normocephalic and atraumatic ENT: Present normal exam, normal oropharynx and mucous membranes moist Neck: Present normal inspection and full ROM Respiratory: Present rhonchi and able to speak in complete sentences; Absent prolonged expiratory phase or wheezes Cardiac: Present S1/S2, Tachycardia and radial pulses present GI: Present soft and distention; Absent tenderness or guarding Rectal (female): Present deferred (female): Present deferred Skin: Present intact; Absent cyanosis or jaundice Neuro: Present alert, awake and oriented x 3 Extremities: Present normal inspection; Absent clubbing or cyanosis Psychiatric: Present normal affect and cooperative Assessment and Plan *Assessment and plan (1) Pulmonary embolism: Status: Acute Qualifiers: Pulmonary embolism type: single subsegmental (without acute cor pulmonale) Qualified Code(s): I26.93 - Single subsegmental thrombotic pulmonary embolism without acute cor pulmonale Category: Medical Code(s): I26.99 - Other pulmonary embolism without acute cor pulmonale (2) Pneumonia: Status: Acute Qualifiers: Laterality: right Lung location: upper lobe of lung Pneumonia type: due to unspecified organism Qualified Code(s): J18.9 - Pneumonia, unspecified organism Category: Medical Code(s): J18.9 - Pneumonia, unspecified organism (3) Pleural effusion on right: Status: Acute Category: Medical Code(s): J90 - Pleural effusion, not elsewhere classified (4) Acute respiratory failure with hypoxia: Status: Acute Category: Medical Code(s): J96.01 - Acute respiratory failure with hypoxia Plan Ms. Cronin is a 63-year-old female with reported history of CAD CHF 2016 A-fib bioprosthetic mitral valve with chronic endocarditis on daily penicillin as per the patient presented to the ER with worsening respiratory distress and pulmonary was called for further evaluation and management. Greater than [id number] smoking, using nebulization therapies on as-needed basis at baseline. Not using any oxygen supplementation Afebrile. Hemodynamically stable. CTA upon admission left lower lobe segmental subsegmental pulmonary embolism. Moderate to large right pleural effusion. Right middle and lower lobe patchy airspace disease. The right pleural effusion and right airspace disease relatively new from her most recent CT from 03/05/2024 when she presented to the ER and was transferred to an outside hospital for renal dysfunction Currently receiving vancomycin and cefepime. Recently discharged from hospital for presumed airspace disease and pneumonia from [facility]. Drop in hemoglobin after receiving full dose anticoagulation. Anticoagulation currently on hold. GI following. Blood cultures no growth. Sputum cultures with gram-positive cocci in chains and gram-negative rods. Interval update: Continue to receive cefepime. Vancomycin discontinued yesterday. Stable oxygen requirements. Afebrile. Hemodynamically stable. No evidence of leukocytosis. Plan: Incentive spirometry and flutter valve Oxygen supplementation to maintain O2 saturation around 90% and above, patient tolerating nasal cannula supplementation. Change antibiotic levofloxacin to complete a total of 10-day, renally dose DuoNebs 4 times daily scheduled Pulmonary embolism likely provoked, needs 3 months of anticoagulation. Plan to discharge on Eliquis , to complete a total of 3-month course. While inpatient receiving, once daily Lovenox, full dose anticoagulation given her renal dysfunction and reduced creatinine clearance. Hemoglobin stable so far. Pending endoscopy and colonoscopy today.
[2024-03-20 11:53] LABS: POC Glucose,Bedside 119 (70-110)
[2024-03-20 12:00] VITALS: BP 114/74; PULSE 96; RESP 16; TEMP 36.4; O2SAT 99
--- NOTE | 2024-03-20 13:06 | HMH.PHAINT1 ---
Pharmacy Intervention Comments: DISCHARGE COUNSELED PATIENT ON TIMING OF MEDICATIONS ONCE SHE GOES HOME.
[2024-03-20 13:12] VITALS: PULSE 80; PULSE 82
--- NOTE | 2024-03-23 11:55 | SW/DCPLANNER ---
Spoke with patient on the phone. Patient stated that she is aware of his upcoming appointments. 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 Patient stated that she has no concerns or questions at this time. Emmanuelle Moeller
[2024-03-23 17:08] LABS: Antiparietal Cell Antibody 67.8 Units (0.0-20.0)
== END 2024-03-20 14:00 | disposition home health service (06) | DRG 981 ==
LOC: ER 13:54 → 2ND 14:46
PROVIDERS: Internal Medicine; Internal Medicine Gastroenterology; Nurse Practitioner Family; Admitting Provider Student in an Organized Health Care Education/Training Program; Emergency Provider Emergency Medicine; PCP Nurse Practitioner Family; Visit Provider Student in an Organized Health Care Education/Training Program
PROC: 027034Z Dilation of Coronary Artery, One Artery with Drug-eluting Intraluminal Device, Percutaneous Approach (ICD-10-PCS; principal; 2024-03-18 13:00)
PROC: 0DJ08ZZ Inspection of Upper Intestinal Tract, Via Natural or Artificial Opening Endoscopic (ICD-10-PCS; CPT 45378; principal; 2024-03-18 15:00)
DX: I26.93 Single subsegmental thrombotic pulmonary embolism without acute cor pulmonale (principal); I33.0 Acute and subacute infective endocarditis; J18.9 Pneumonia, unspecified organism; I50.23 Acute on chronic systolic (congestive) heart failure; J96.01 Acute respiratory failure with hypoxia; J90 Pleural effusion, not elsewhere classified; I13.0 Hypertensive heart and chronic kidney disease with heart failure and stage 1 through stage 4 chronic kidney disease, or unspecified chronic kidney disease; T82.857A Stenosis of other cardiac prosthetic devices, implants and grafts, initial encounter; D64.9 Anemia, unspecified; Z95.2 Presence of prosthetic heart valve; E11.22 Type 2 diabetes mellitus with diabetic chronic kidney disease; N18.31 Chronic kidney disease, stage 3a; Z79.4 Long term (current) use of insulin; I25.10 Atherosclerotic heart disease of native coronary artery without angina pectoris; I48.0 Paroxysmal atrial fibrillation; Z95.1 Presence of aortocoronary bypass graft; I77.1 Stricture of artery; Z79.899 Other long term (current) drug therapy; I25.82 Chronic total occlusion of coronary artery; D12.4 Benign neoplasm of descending colon; K55.20 Angiodysplasia of colon without hemorrhage; K29.40 Chronic atrophic gastritis without bleeding; Z93.2 Ileostomy status; K64.1 Second degree hemorrhoids; I65.23 Occlusion and stenosis of bilateral carotid arteries
CPT/HCPCS: 36415; 71045; 71275; 80053; 80061; 80202; 82728; 82803; 82962; 83516; 83540; 83550; 83735; 83880; 84145; 84439; 84443; 84484; 85014; 85018; 85025; 85347; 85378; 85610; 85730; 86850; 86870; 87040; 87070; 87081; 87205; 87641; 88305; 92937; 92978; 93005; 93306; 94640; 97162; 97166; 99152; 99153; 99291; C1725; C1726; C1769; C1874; C2618; C9604; J0692; J1644; J1650; J1756; J1940; J2250; J2919; J3010; J3370; J3475; J7050; J7620; P9016; Q9967

== ENCOUNTER 2024-04-10 10:26 | Outpatient (CLI) | payer MEDICARE, MEDICAID, SELFPAY ==
--- NOTE | 2024-04-10 10:31 | XR_ITS ---
FINAL REPORT CLINICAL HISTORY: WHEEZING COMPARISON: 03/19/2024 FINDINGS: PA and lateral views of the chest were obtained. There are changes of emphysema. No focal infiltrate is evident. There is no evidence of effusion or other pleural disease. The patient is status post CABG. The mediastinum otherwise has a normal appearance. A left-sided pacemaker is noted. The cardiac silhouette is unremarkable. IMPRESSION: No acute findings. Reviewed, Interpreted and Dictated by Whit Dobbs MD Transcribed by Brenda Scanlon Authenticated and [facility]
== END 2024-04-10 23:59 | disposition home or self-care (01) ==
LOC: RAD 10:27
PROVIDERS: PCP Nurse Practitioner Family; Visit Provider Nurse Practitioner Family
DX: R06.2 Wheezing (principal)
CPT/HCPCS: 71046

== ENCOUNTER 2024-04-16 11:29 | Outpatient (CLI) | payer MEDICARE, MEDICAID, SELFPAY ==
--- NOTE | 2024-04-16 11:33 | XR_ITS ---
FINAL REPORT TECHNIQUE: 2 view chest CLINICAL HISTORY: DYSPNEA, cough, smoker COMPARISON: 04/10/2024 FINDINGS: CHEST 2 VIEWS: No acute pulmonary opacities present. There is no evidence of effusion or pneumothorax. There is suspicion of underlying emphysema. There is evidence of prior median sternotomy, presumably from CABG. a left-sided pacemaker is present. Otherwise mediastinum is unremarkable. The heart is normal in size. IMPRESSION: Status post CABG, with suspicion of underlying left-sided emphysema. Reviewed, Interpreted and Dictated by Whit Dobbs MD Transcribed by Celina Holden Authenticated and [facility]
--- NOTE | 2024-04-16 14:05 | ECG_ITS ---
APPROVED REPORT Exam: Resting ECG HR:113 bpm ECG Measurements Heart Rate 113 AXES QRSd 101 QRS 98 QT 281 T 196 QTc 348 Conclusion ATRIAL FIBRILLATION WITH RAPID VENTRICULAR RESPONSE WITH ABERRANT CONDUCTION OR VENTRICULAR PREMATURE COMPLEXES BORDERLINE RIGHT AXIS DEVIATION [QRS AXIS > 90] NONSPECIFIC T-WAVE ABNORMALITY ABNORMAL ECG Electronically signed by : SOFYA LAINEZ, 04/21/2024 23:39:55
== END 2024-04-16 23:59 | disposition home or self-care (01) ==
LOC: RAD 11:30
PROVIDERS: PCP Nurse Practitioner Family; Visit Provider Nurse Practitioner Family
DX: R06.00 Dyspnea, unspecified (principal)
CPT/HCPCS: 71046; 93005

== ENCOUNTER 2024-04-16 13:55 | Emergency (ER) | payer MEDICARE, MEDICAID, SELFPAY ==
[2024-04-16 14:01] VITALS: BP 107/60; PULSE 117; RESP 18; TEMP 36.6; O2SAT 100; BMI 26.6
--- NOTE | 2024-04-16 14:36 | PC.NURSE ---
pt reports when her home health RN came today that she told the pt she needed to come to the ER. The home health nurse told her that her HR was increasing and decreasing frequently and she thought the pt was in a fib. pt has a hx of AFIB and takes two blood thinners daily. pt states she feels perfect and has no complaints. She denies chest pain, abd pain, SOA or any other symptoms.
--- NOTE | 2024-04-16 14:37 | XR_ITS ---
FINAL REPORT CLINICAL HISTORY: dyspnea COMPARISON: 04/16/2024 at 11:37 AM FINDINGS: SINGLE VIEW CHEST The heart is normal in size. Patient is status post median sternotomy and CABG. Left-sided pacer is identified. The lungs are clear. There is no pneumothorax. IMPRESSION: No acute process. Reviewed, Interpreted and Dictated by Whit Dobbs MD Transcribed by Yasmeen López Authenticated and . [facility]
--- NOTE | 2024-04-16 14:41 | HMH.EDGENADL ---
Discharge Plan Disposition Patient Disposition: Home, Self-Care Chief Complaint: Arrhythmia/Palpitations Prescriptions Prescriptions: No Action ropinirole 1 mg tablet 1 mg PO DAILY Vraylar 1.5 mg capsule 1.5 mg PO DAILY dapagliflozin propanediol [Farxiga] 10 mg tablet 10 mg PO DAILY Qty: 30 2RF cyanocobalamin (vitamin B-12) 1,000 mcg/mL solution 1,000 mcg SQ QMONTH Qty: 1 2RF trazodone 50 mg tablet 50 mg PO HS alprazolam 0.5 mg tablet 0.5 mg PO BIDP PRN (Reason: Anxiety) citalopram 20 mg tablet 20 mg PO HS Novolin 70/30 U-100 Insulin 100 unit/mL (70-30) suspension 6 unit SQ BID cholecalciferol (vitamin D3) 25 mcg (1,000 unit) Tablet 25 mcg PO DAILY insulin glargine [Lantus Solostar U-100 Insulin] 100 unit/mL (3 mL) insulin pen 8 unit SQ HS atorvastatin 40 mg Tablet 40 mg PO HS 30 Days Qty: 30 0RF clopidogrel 75 mg tablet 75 mg PO DAILY 30 Days Qty: 30 0RF Patient Comments: TAKE ONE TABLET BY MOUTH ONCE A DAY amiodarone 200 mg tablet 200 mg PO DAILY penicillin V potassium 250 mg tablet 250 mg PO BID metoprolol tartrate 25 mg Tablet 25 mg PO BID Qty: 60 0RF torsemide 20 mg Tablet 20 mg PO DAILY 30 Days Qty: 30 0RF pantoprazole 40 mg Tablet,Delayed Release (Dr/Ec) 40 mg PO HS 30 Days Qty: 30 0RF Eliquis 5 mg tablet See Rx Instructions .ROUTE .COMPLEX Qty: 74 0RF Rx Instructions: 10 mg twice daily for 7 days followed by 5 mg twice a day thereafter. Referrals Follow up/Referrals: Ivonne Jones APRN [Primary Care Provider] - See instructions Activity Restrictions/Add. Instructions Additional Instructions/Restrictions: Call your family doctor to establish care for this visit to the emergency department and schedule follow-up within 48 hours to ensure improvement. If you have any worsening of your condition or any other concerning signs or symptoms, return to the emergency department or your primary care doctor for further evaluation. Be sure to hydrate plenty and follow-up with your family doctor regarding this for repeat labs to make sure kidney function is doing all right. Clinical Impressions Clinical Impression: Atrial fibrillation with rapid ventricular response, Abnormal laboratory test, Hypothyroidism, STACY (acute kidney injury) Print Language Print Language: Czech Discharge ED Provider: Kar Payne General Adult HPI <Umer Valentine MD - Last Filed: 04/16/24 14:48> General Chief complaint: Arrhythmia/Palpitations Stated complaint: POss A-fib, no pain Time Seen by Provider: 04/16/24 14:09 Mode of Arrival: Ambulatory Source of Information: Patient Description of Symptoms (Recalled from ER Triage Doc. by RN): Pt presents with family for concern of high heart rate. The home health nurse was concerned for a-fib. pts heart rate ranged from 90-120. History of Present Illness HPI narrative: Patient is a 63-year-old female brought in today by a family member for 2 concerns. First she has a history of atrial fibrillation and is chronically anticoagulated for that and was brought in because she is not adequately rate controlled. She claims to have been compliant with her medications that she has documented Ed. Additionally she was told that she had an abnormal blood test specifically her kidney function she does not know exactly what that number was but that was ultimately why her doctor called her and told her to come to the emergency department. Patient has recently been dealing with bronchitis though symptoms have not changed appreciably over the last several days. Patient has known A-fib and has been started on amiodarone in the past her last ejection fraction was around 50%. Patient is unaware of what medications that she is on but from a historical standpoint specifically what medications she is on from a rate control standpoint. Related Data Home Medications ?Medication ?Instructions ?Recorded ?Confirmed alprazolam 0.5 mg tablet 0.5 mg PO BIDP PRN Anxiety 12/12/23 03/25/24 cholecalciferol (vitamin D3) 25 25 mcg PO DAILY 12/12/23 03/25/24 mcg (1,000 unit) tablet citalopram 20 mg tablet 20 mg PO HS 12/12/23 03/25/24 insulin glargine 100 unit/mL (3 8 unit SQ HS 12/12/23 03/25/24 mL) subcutaneous pen (Lantus Solostar U-100 Insulin) insulin human U-100 NPH-regulr 6 unit SQ BID 12/12/23 03/25/24 70-30 mix 100 unit/mL subcutaneous susp (Novolin 70/30 U-100 Insulin) trazodone 50 mg tablet 50 mg PO HS 12/12/23 03/25/24 cariprazine 1.5 mg capsule 1.5 mg PO DAILY 01/23/24 03/25/24 (Vraylar) ropinirole 1 mg tablet 1 mg PO DAILY 01/23/24 03/25/24 amiodarone 200 mg tablet 200 mg PO DAILY 03/15/24 03/25/24 penicillin V potassium 250 mg 250 mg PO BID 03/15/24 03/25/24 tablet Previous Rx's ?Medication ?Instructions ?Recorded atorvastatin 40 mg tablet 40 mg PO HS 30 days #30 tabs 12/14/23 clopidogrel 75 mg tablet 75 mg PO DAILY 30 days #30 tabs 12/14/23 dapagliflozin propanediol 10 mg 10 mg PO DAILY #30 tabs 01/23/24 tablet (Farxiga) apixaban 5 mg tablet (Eliquis) See Rx Instructions .Route 03/20/24 .COMPLEX #74 tabs metoprolol tartrate 25 mg tablet 25 mg PO BID #60 tabs 03/20/24 pantoprazole 40 mg tablet,delayed 40 mg PO HS 30 days #30 tabs 03/20/24 release torsemide 20 mg tablet 20 mg PO DAILY 30 days #30 tabs 03/20/24 cyanocobalamin (vitamin B-12) 1,000 mcg SQ QMONTH #1 mL 03/25/24 1,000 mcg/mL injection solution Allergies Allergy/AdvReac Type Severity Reaction Status Date / Time No Known Allergies Allergy Verified 03/25/24 10:31 [facility] <Umer Valentine MD - Last Filed: 04/16/24 14:48> [facility] Disclaimer: The information contained in this section may have been updated after the patient was seen, as this information can be updated by other users. Medical History (Updated 04/16/24 @ 16:11 by Kar Payne MD) Atrial fibrillation Abnormal echocardiogram Atypical angina Acute respiratory failure with hypoxia Pleural effusion on right Chronic endocarditis Acute on chronic HFrEF (heart failure with reduced ejection fraction) Coronary artery disease Pacemaker at end of battery life Right kidney mass Pancreatic mass Vomiting Dental abscess Pain, dental Hematuria Complication of urostomy Nausea vomiting and diarrhea Hypotension Generalized weakness Hypovolemia E. coli UTI (urinary tract infection) Infection due to extended-spectrum [id number] Klebsiella pneumoniae Yeast infection of the vagina Complicated UTI (urinary tract infection) STACY (acute kidney injury) Septic shock Severe sepsis with acute organ dysfunction Cellulitis Candidiasis Abdominal pannus Nausea & vomiting Presence of urostomy Presence of urostomy Vitamin D deficiency Biventricular cardiac pacemaker in situ Bacterial endocarditis Cardiac arrhythmia Bacteria present Obesity (BMI 30.0-34.9) Gastroenteritis due to norovirus Decreased blood volume Sepsis due to Streptococcus agalactiae Bacteremia Ileostomy in place Pacemaker Bladder cancer Diarrhea Fever UTI (urinary tract infection) Dehydration Diabetes mellitus Renal insufficiency Abscess of skin or subcutaneous tissue Renal insufficiency Valvular heart disease Palpitations Myocardial infarction HTN (hypertension), benign T2DM (type 2 diabetes mellitus) Depression CHF (congestive heart failure) Cancer Arrhythmia Anxiety Encounter for pre-operative cardiovascular clearance PAD (peripheral artery disease) Abnormal ankle brachial index (GOMEZ) PVD (peripheral vascular disease) HHD (hypertensive heart disease) Smoker HLD (hyperlipidemia) Carotid bruit Carotid artery stenosis CAD (coronary artery disease) Surgical History Status post mitral valve replacement Hx of tonsillectomy History of mitral valve replacement S/P left atrial appendage ligation AICD (automatic cardioverter/defibrillator) present H/O tricuspid valve replacement History of coronary artery bypass graft Family History Other Cancer Diabetes Heart attack Social History Smoking Status: Current every day smoker tobacco type: cigarettes packs per day: 1 second hand exposure: Yes alcohol intake: never substance use type: marijuana current occupational status: unemployed Travel in the last 8 weeks: None household members: family housing: house number of children: 2 current occupational exposures/hazards: No caffeine: Yes Have you lived/traveled outside [place] in past 30 days?: No Contact w/someone who lives/traveled outside US past 30 days?: No Exposure to someone with infectious disease in past 14 days?: No Do you have a fever (greater than 100.4 F or 38 C)?: No Have you tested positive for COVID-19: No Exposed to someone with COVID-19 in past 14 days?: No Do you have a sore throat?: No Do you have a cough?: No Do you have any weakness?: No Do you have any diarrhea?: No Are you experiencing any unusual bleeding?: No Do you have any muscle aches/pain?: No Do you have any abdominal pain?: No Are you experiencing loss of taste or smell?: No Other Medical History Have you received the Flu Vaccine for this season: No Have you received the Pneumonia Vaccine: No <Umer Valentine MD - Last Filed: 04/16/24 14:48> ROS Obtained: Yes All systems reviewed & no additional complaints except as documented Physical Exam <Umer Valentine MD - Last Filed: 04/16/24 14:48> General General appearance: alert Respiratory Respiratory exam: Present normal lung sounds bilaterally Cardiovascular Cardiovascular exam: Present tachycardia and irregular rhythm Neurological Exam Neurological exam: Present alert and oriented X3 Medical Decision Making <Umer Valentine MD - Last Filed: 04/16/24 14:48> Medical Records Screening: Per USPSTF and CDC recommendations, given the prevalence of disease in our region, it is our hospital?s policy to screen for HIV and viral Hepatitis for all patients aged 18 and over and those with ongoing risk factors. [place] Inquiry Pt receiving controlled substance: No Vital Signs: 04/16/24 14:01 04/16/24 15:08 04/16/24 15:16 Temperature 98 F Temperature Source Oral Pulse Rate 88 83 Pulse Rate [Right] 117 H Respiratory Rate 18 20 Blood Pressure 118/70 121/56 L Blood Pressure [Right Arm] 107/60 L Blood Pressure Mean 81 Blood Pressure Mean [Right Arm] 75 Blood Pressure Source [Right Arm] Automatic Cuff Blood Pressure Position [Right Arm] Sitting 02 Sat by Pulse Oximetry 100 96 97 Oxygen Delivery Method Room Air Room Air Room Air 04/16/24 15:30 Temperature Temperature Source Pulse Rate 84 Pulse Rate [Right] Respiratory Rate Blood Pressure 104/67 L Blood Pressure [Right Arm] Blood Pressure Mean 86 Blood Pressure Mean [Right Arm] Blood Pressure Source [Right Arm] Blood Pressure Position [Right Arm] 02 Sat by Pulse Oximetry 97 Oxygen Delivery Method Room Air Lab Data Lab Results 04/16/24 14:45: WBC 7.3, RBC 3.32 L, Hgb 9.6 L, Hct 30.4 L, MCV 91.6, MCH 28.9, MCHC 31.6 L, RDW 17.7 H, Plt Count 306, MPV 10.6 H, Neut % (Auto) 78.3, Lymph % (Auto) 13.3, Frio % (Auto) 4.6, Eos % (Auto) 2.9, Baso % (Auto) 0.5, Neut # (Auto) 5.7, Lymph # (Auto) 1.0, Frio # (Auto) 0.3, Eos # (Auto) 0.2, Baso # (Auto) 0.0, Sodium 138, Potassium 3.3 L, Chloride 108 H, Carbon Dioxide 18 L, Anion Gap 15.3 H, BUN 48 H, Creatinine 2.40 H, Estimated Creat Clear 25, Estimated GFR 21 L, Est GFR ( Amer) 25 L, Glucose 156 H, Calcium 9.0, Magnesium 1.9, Total Bilirubin 0.5, AST 28, ALT 31, Alkaline Phosphatase 147 H, Troponin I < 0.01, Total Protein 7.6, Albumin 4.4, Globulin 3.2, Albumin/Globulin Ratio 1.4, TSH 8.84 H 04/16/24 14:45 04/16/24 14:45 Orders (Tests/Meds): ED MEDICATIONS Generic Name Dose Route Start Last Admin Trade Name Freq PRN Reason Stop Dose Admin Metoprolol Tartrate 5 mg 04/16/24 15:19 04/16/24 15:15 Metoprolol Tartrate 5mg/5ml Vial IV 5 mg Q5MINP PRN Administration HR>110 Discontinued Medications Generic Name Dose Route Start Last Admin Trade Name Freq PRN Reason Stop Dose Admin Magnesium Sulfate 2 gm in 50 mls @ 50 mls/hr 04/16/24 14:37 04/16/24 14:50 Magnesium Sulfate 2gm/50ml Premix IV 04/16/24 15:36 50 mls/hr ONCE ONE Administration Metoprolol Tartrate 5 mg 04/16/24 14:46 04/16/24 15:08 Metoprolol Tartrate 5mg/5ml Vial IV 04/16/24 14:47 5 mg ONCE ONE Administration Metoprolol Tartrate 5 mg 04/16/24 15:18 04/16/24 15:23 Metoprolol Tartrate 5mg/5ml Vial IV 04/16/24 15:19 Not Given ONCE ONE Potassium Chloride 60 meq 04/16/24 15:36 04/16/24 15:40 Potassium Chloride 20meq Tab PO 04/16/24 15:37 60 meq ONCE ONE Administration ORDERS Category Date Time Status CXR --portable [XR chest portable] Stat Exams 04/16/24 14:37 Taken CBC w/Auto Diff [Complete Blood Count Auto Diff] Stat Lab 04/16/24 14:45 Completed CMP [Comprehensive Metabolic Panel] Stat Lab 04/16/24 14:45 Completed Magnesium Stat Lab 04/16/24 14:45 Completed TSH [Thyroid Stimulating Hormone] Stat Lab 04/16/24 14:45 Completed Trop I [Troponin I] Stat Lab 04/16/24 14:45 Completed Troponin I Q3H Lab 04/16/24 17:45 Ordered Troponin I Q3H Lab 04/16/24 20:45 Ordered Medical Decision Narrative: 63-year-old presents today with A-fib and RVR as well as history from her physician stating she had an abnormal blood test with regards to her kidney function. We do not know exactly what that number was. EKG was in performed which I personally interpreted shows a heart rate of 113 A-fib with RVR no acute ischemic changes noted there is a poor baseline difficult to interpret normal axis. Patient appears clinically well at the moment. She is on amiodarone but has a relatively normal ejection fraction. Patient does not know what medication she takes for rate control standpoint she has document metoprolol but unclear as to whether or not she is taking that as well. However given the fact that she is already prescribed metoprolol we will give her IV metoprolol to see if we can get her heart rate under control. After chemistries are not dramatically abnormal in comparison with the baseline we may be able to increase her oral metoprolol dose and get her out. She is only on 25 mg p.o. twice daily at the moment. Will reassess. Care we transitioned to Dr. Payne at 3 PM <Kar Payne MD - Last Filed: 04/16/24 16:11> Vital Signs: 04/16/24 14:01 04/16/24 15:08 04/16/24 15:16 Temperature 98 F Temperature Source Oral Pulse Rate 88 83 Pulse Rate [Right] 117 H Respiratory Rate 18 20 Blood Pressure 118/70 121/56 L Blood Pressure [Right Arm] 107/60 L Blood Pressure Mean 81 Blood Pressure Mean [Right Arm] 75 Blood Pressure Source [Right Arm] Automatic Cuff Blood Pressure Position [Right Arm] Sitting 02 Sat by Pulse Oximetry 100 96 97 Oxygen Delivery Method Room Air Room Air Room Air 04/16/24 15:30 Temperature Temperature Source Pulse Rate 84 Pulse Rate [Right] Respiratory Rate Blood Pressure 104/67 L Blood Pressure [Right Arm] Blood Pressure Mean 86 Blood Pressure Mean [Right Arm] Blood Pressure Source [Right Arm] Blood Pressure Position [Right Arm] 02 Sat by Pulse Oximetry 97 Oxygen Delivery Method Room Air Lab Data Lab Results 04/16/24 14:45: WBC 7.3, RBC 3.32 L, Hgb 9.6 L, Hct 30.4 L, MCV 91.6, MCH 28.9, MCHC 31.6 L, RDW 17.7 H, Plt Count 306, MPV 10.6 H, Neut % (Auto) 78.3, Lymph % (Auto) 13.3, Frio % (Auto) 4.6, Eos % (Auto) 2.9, Baso % (Auto) 0.5, Neut # (Auto) 5.7, Lymph # (Auto) 1.0, Frio # (Auto) 0.3, Eos # (Auto) 0.2, Baso # (Auto) 0.0, Sodium 138, Potassium 3.3 L, Chloride 108 H, Carbon Dioxide 18 L, Anion Gap 15.3 H, BUN 48 H, Creatinine 2.40 H, Estimated Creat Clear 25, Estimated GFR 21 L, Est GFR ( Amer) 25 L, Glucose 156 H, Calcium 9.0, Magnesium 1.9, Total Bilirubin 0.5, AST 28, ALT 31, Alkaline Phosphatase 147 H, Troponin I < 0.01, Total Protein 7.6, Albumin 4.4, Globulin 3.2, Albumin/Globulin Ratio 1.4, TSH 8.84 H Orders (Tests/Meds): ED MEDICATIONS Generic Name Dose Route Start Last Admin Trade Name Freq PRN Reason Stop Dose Admin Metoprolol Tartrate 5 mg 04/16/24 15:19 04/16/24 15:15 Metoprolol Tartrate 5mg/5ml Vial IV 5 mg Q5MINP PRN Administration HR>110 Discontinued Medications Generic Name Dose Route Start Last Admin Trade Name Freq PRN Reason Stop Dose Admin Magnesium Sulfate 2 gm in 50 mls @ 50 mls/hr 04/16/24 14:37 04/16/24 14:50 Magnesium Sulfate 2gm/50ml Premix IV 04/16/24 15:36 50 mls/hr ONCE ONE Administration Metoprolol Tartrate 5 mg 04/16/24 14:46 04/16/24 15:08 Metoprolol Tartrate 5mg/5ml Vial IV 04/16/24 14:47 5 mg ONCE ONE Administration Metoprolol Tartrate 5 mg 04/16/24 15:18 04/16/24 15:23 Metoprolol Tartrate 5mg/5ml Vial IV 04/16/24 15:19 Not Given ONCE ONE Potassium Chloride 60 meq 04/16/24 15:36 04/16/24 15:40 Potassium Chloride 20meq Tab PO 04/16/24 15:37 60 meq ONCE ONE Administration ORDERS Category Date Time Status CXR --portable [XR chest portable] Stat Exams 04/16/24 14:37 Taken CBC w/Auto Diff [Complete Blood Count Auto Diff] Stat Lab 04/16/24 14:45 Completed CMP [Comprehensive Metabolic Panel] Stat Lab 04/16/24 14:45 Completed Magnesium Stat Lab 04/16/24 14:45 Completed TSH [Thyroid Stimulating Hormone] Stat Lab 04/16/24 14:45 Completed Trop I [Troponin I] Stat Lab 04/16/24 14:45 Completed Troponin I Q3H Lab 04/16/24 17:45 Ordered Troponin I Q3H Lab 04/16/24 20:45 Ordered Medical Decision Narrative: 63-year-old presents today with A-fib and RVR as well as history from her physician stating she had an abnormal blood test with regards to her kidney function. We do not know exactly what that number was. EKG was in performed which I personally interpreted shows a heart rate of 113 A-fib with RVR no acute ischemic changes noted there is a poor baseline difficult to interpret normal axis. Patient appears clinically well at the moment. She is on amiodarone but has a relatively normal ejection fraction. Patient does not know what medication she takes for rate control standpoint she has document metoprolol but unclear as to whether or not she is taking that as well. However given the fact that she is already prescribed metoprolol we will give her IV metoprolol to see if we can get her heart rate under control. After chemistries are not dramatically abnormal in comparison with the baseline we may be able to increase her oral metoprolol dose and get her out. She is only on 25 mg p.o. twice daily at the moment. Will reassess. Care we transitioned to Dr. Payne at 3 PM Elmer: I assumed primary responsibility for this patient after signout from previous physician. On my evaluation, patient in no acute distress speaking full sentences, heart rate in the 80s send normotensive. No complaints. Patient's workup independently interpreted. No leukocytosis, stable hemoglobin. Patient mildly hypokalemic, given 60 mill equivalent p.o. for this. Mild STACY and CKD. Troponin negative. TSH elevated, this was relayed to patient. Because patient rate controlled, I feel this is likely senior patient account representative of mild dehydration. Recommended patient hydrate and close return precautions were discussed. Recommend she follow-up with her family doctor. Because patient at baseline without signs or symptoms of clinical decompensation, deemed appropriate for discharge. Results were relayed to patient who voiced understanding and were agreeable to outpatient management and follow up. I discussed my clinical impression with patient and answered all questions. At this time, the evidence for any other entities in the differential is insufficient to warrant any further testing or ED observation. This was explained as well. Advisory was given that persistent or worsening symptoms require further evaluation. I confirmed the understanding of this discussion. Critical Care <Umer Valentine MD - Last Filed: 04/16/24 14:48> Critical Care Time Critical Care Time: Yes Attestation: On 04/16/24, the high probability of a clinically significant, sudden or life threatening deterioration of the following system(s) required my full and direct attention, intervention and personal management. The time I documented below is in addition to time spent performing reported procedures but includes the following listed in this critical care notation. Total Time Total Critical Care Time: 35
[2024-04-16] MEDS: MAGNESIUM SULFATE IN WATER 2 GM/50 ML PIGGYBACK IV (14:50)
[2024-04-16 14:52] LABS: Basophils % 0.5 % (0.1-2.0); Eosinophils # 0.2 K/mm3 (0.0-0.4); Eosinophils % 2.9 % (0.1-12.0); Hematocrit 30.4 % (37.0-47.0); Hemoglobin 9.6 g/dL (12.2-16.2); Lymphocytes % 13.3 % (10-50); Mean Corpuscular HGB Conc 31.6 g/dL (31.8-35.4); Mean Corpuscular Hemoglobin 28.9 pg (27.0-31.2); Mean Corpuscular Volume 91.6 fl (81-99); Mean Platelet Volume 10.6 fl (7.4-10.4); Monocytes # 0.3 K/mm3 (0.1-1.0); Monocytes % 4.6 % (1.7-9.3); Neutrophils # 5.7 K/mm3 (1.8-7.8); Neutrophils % 78.3 % (37.0-80.0); Platelet Count 306 K/mm3 (142-424); Red Blood Count 3.32 M/mm3 (4.20-5.40); Red Cell Distribution Width 17.7 % (11.5-17.5); White Blood Count 7.3 K/mm3 (4.8-10.8)
[2024-04-16 15:07] LABS: Albumin Level 4.4 g/dl (3.5-5.0); Chloride 108 mmol/L (98-107); Potassium 3.3 mmoL/L (3.5-5.1); Sodium 138 mmol/L (136-145)
[2024-04-16 15:08] VITALS: BP 118/70; PULSE 88; O2SAT 96
[2024-04-16] MEDS: METOPROLOL TARTRATE 5MG/5ML VIAL 5 MG IV ×2 (15:08→15:15)
[2024-04-16 15:10] LABS: Alanine Aminotransferase 31 U/L (12-78); Albumin/Globulin Ratio 1.4 (1.1-1.8); Alkaline Phosphatase 147 U/L (38-126); Anion Gap 15.3 mEq/L (5-15); Aspartate Amino Transferase 28 U/L (14-36); Bilirubin,Total 0.5 mg/dl (0.2-1.3); Blood Urea Nitrogen 48 mg/dl (7-17); Carbon Dioxide 18 mmol/L (22.0-30.0); Creatinine Clearance Estimated 25 mL/min (50-200); Estimated Glomerular Filt Rate 21 ml/min (>60); GFR (African American) 25 ML/MIN (>60); Globulin 3.2 g/dL (1.3-3.2); Glucose 156 mg/dl (74-100); Magnesium 1.9 mg/dl (1.6-2.3); Total Protein,Serum 7.6 g/dl (6.3-8.2)
[2024-04-16 15:16] VITALS: BP 121/56; PULSE 83; RESP 20; O2SAT 97
--- NOTE | 2024-04-16 15:22 | PC.NURSE ---
spoke with MD regarding pt Heart rate. goal of <110. pt currently 86 after 10mg of metoprolol
[2024-04-16 15:26] LABS: Troponin I < 0.01 ng/ml (0.00-0.034)
[2024-04-16 15:30] VITALS: BP 104/67; PULSE 84; O2SAT 97
[2024-04-16] MEDS: POTASSIUM CHLORIDE 20MEQ TAB 60 MEQ PO (15:40)
[2024-04-16 15:41] LABS: Thyroid Stimulating Hormone 8.84 uIU/mL (0.465-4.68)
--- NOTE | 2024-04-16 15:50 | PC.NURSE ---
currently interrogating pt defibrillator
[2024-04-16 16:12] VITALS: BP 121/71; PULSE 88; RESP 20; TEMP 36.6; O2SAT 94
== END 2024-04-16 16:39 | disposition home or self-care (01) ==
PROVIDERS: Student in an Organized Health Care Education/Training Program; Emergency Provider Emergency Medicine; PCP Nurse Practitioner Family
DX: I48.0 Paroxysmal atrial fibrillation (principal); E03.9 Hypothyroidism, unspecified; N17.9 Acute kidney failure, unspecified
CPT/HCPCS: 71045; 80053; 83735; 84443; 84484; 85025; 93005; 96365; 96375; 99284; J3475

== ENCOUNTER 2024-04-21 07:22 | Day surgery (SDC) | payer MEDICARE, MEDICAID, SELFPAY ==
[2024-04-21 07:47] VITALS: BMI 24.9
--- NOTE | 2024-04-21 07:50 | CA_ITS ---
APPROVED REPORT EXAM: Comprehensive 2D, Doppler, and color-flow Echocardiogram Airframe Technical Officer: Dariela Kauffman RVT Ht: 5 ft 1 in Wt: 132lbs BSA: 1.58 BP: 104/67 mmHg Indications: A-FIB,MVR,AICD,CABG,MILLY CLIP,PALPS,SMOKER,CM Procedure After obtaining informed consent, patient underwent transesophageal echo in the OP Surgery Suite. Type of Sedation : MAC Sedation start time: 10:00 Case end Time: 10:15 The BROCK was performed without complications. Synchronized Cardioversion acheived with 150 Joules after 1 attempt(s). Throughout the procedure, the blood pressure, pulse oximetry, cardiac rhythm, and rate were monitored. The patient tolerated the procedure without adverse effects. Recovery from conscious sedation was uneventful and vital signs were stable. Left Ventricle The left ventricle is normal size. Left ventricular systolic function is mildly to moderately decreased. There is increased LV wall thickness. There is mild to moderate global hypokinesis present. LVEF is 40%. Right Ventricle Right ventricle is mildly dilated. Right ventricle is mildly hypokinetic. There is a device lead in the right ventricle. Atria The left atrium is dilated. The patient is s/p MILLY clipping. No thrombus is visualized in the left atrium or MILLY stump. The right atrium is dilated. Interatrial septum is intact without evidence of ASD or PFO. Aortic Valve The aortic valve is normal in structure. The aortic valve is trileaflet. Mitral Valve s/p bioprosthetic MVR. The prosthesis is well-seated. The MV leaflets are opening well with no restriction. The MV prosthesis is mildly thickened at the base, but no evidence of mobile echodensities or masses. Findings are most suggestive of pannus formation. Mean MV gradient 8 mmHg (HR 91 bpm). Mild central mitral regurgitation. There is no evidence of mitral valve vegetations. Tricuspid Valve Tricuspid valve is grossly normal in structure and function. Moderate tricuspid regurgitation. RVSP is 34 mmHg + RA pressure. Pulmonic Valve The pulmonary valve is normal in structure. Trace pulmonic regurgitation. Great Vessels The aortic root is normal in size. The ascending aorta is normal in size. Pericardium There is no pericardial effusion. Other Information Study Quality: Fair Conclusion Mild to moderate reduction in LV systolic function (LVEF 40%). Mild RV dilation with mild reduction in RV function. Biatrial dilation. s/p MILLY clipping. No thrombus is visualized in the left atrium or MILLY stump. s/p bioprosthetic MVR. The prosthesis is well-seated. The MV leaflets are opening well with no restriction. The MV prosthesis is mildly thickened at the base, but no evidence of mobile echodensities or masses. Findings are most suggestive of pannus formation (but without compromising the integrity of the MVR). Mean MV gradient 8 mmHg (HR 91 bpm). Mild central MR. Moderate TR. RVSP 34 mmHg + RA pressure. Once BROCK demonstrated no evidence of LA or MILLY thrombus, the patient underwent DCCV with 150 J, after which she successfully converted from atrial fibrillation to sinus bradycardia. She recovered in the postop recovery suite with no symptoms and remained hemodynamically stable. She was discharged in stable condition. Electronically signed by : Deanna Fowler MD 04/22/2024 12:43:40
--- NOTE | 2024-04-21 08:04 | ECG_ITS ---
APPROVED REPORT Exam: Resting ECG HR:106 bpm ECG Measurements Heart Rate 106 AXES QRSd 97 QRS 21 QT 365 T 93 QTc 427 Conclusion UNCERTAIN IRREGULAR RHYTHM ELECTRONIC VENTRICULAR PACEMAKER -- CONTOUR ANALYSIS BASED ON INTRINSIC RHYTHM LOW QRS VOLTAGE IN EXTREMITY LEADS [QRS DEFLECTION < 0.5 mV IN LIMB LEADS] PATTERN CONSISTENT WITH PULMONARY DISEASE MINIMAL ST DEPRESSION [0.025+ mV ST DEPRESSION] ABNORMAL QRS-T ANGLE [QRS-T AXIS DIFFERENCE > 60] CRITICAL TEST RESULT UNCONFIRMED REPORT Electronically signed by : Jacob Powell MD 04/27/2024 08:57:13
[2024-04-21 08:11] VITALS: BP 112/67; PULSE 75; RESP 18; TEMP 36.7; O2SAT 97
[2024-04-21 08:35] LABS: Basophils % 0.5 % (0.1-2.0); Eosinophils # 0.2 K/mm3 (0.0-0.4); Eosinophils % 2.8 % (0.1-12.0); Hematocrit 27.3 % (37.0-47.0); Hemoglobin 8.4 g/dL (12.2-16.2); Lymphocytes # 1.1 K/mm3 (0.7-4.5); Lymphocytes % 13.3 % (10-50); Mean Corpuscular HGB Conc 30.8 g/dL (31.8-35.4); Mean Corpuscular Hemoglobin 28.6 pg (27.0-31.2); Mean Corpuscular Volume 92.9 fl (81-99); Mean Platelet Volume 10.4 fl (7.4-10.4); Monocytes # 0.6 K/mm3 (0.1-1.0); Monocytes % 7.7 % (1.7-9.3); Neutrophils % 75.3 % (37.0-80.0); Platelet Count 415 K/mm3 (142-424); Red Blood Count 2.94 M/mm3 (4.20-5.40); Red Cell Distribution Width 18.2 % (11.5-17.5)
[2024-04-21 08:44] LABS: INR 0.96 (0.9-1.1); Prothrombin Time 10.6 seconds (9.2-12.1)
[2024-04-21 08:45] LABS: Anion Gap 12.9 mEq/L (5-15); Blood Urea Nitrogen 46 mg/dl (7-17); Calcium 8.9 mg/dl (8.4-10.2); Carbon Dioxide 15 mmol/L (22.0-30.0); Chloride 115 mmol/L (98-107); Creatinine Clearance Estimated 27 mL/min (50-200); Estimated Glomerular Filt Rate 24 ml/min (>60); GFR (African American) 29 ML/MIN (>60); Glucose 152 mg/dl (74-100); Potassium 3.9 mmoL/L (3.5-5.1); Sodium 139 mmol/L (136-145)
[2024-04-21] MEDS: APIXABAN 5MG TABLET 5 MG PO (09:38)
[2024-04-21 09:47] VITALS: O2SAT 100
[2024-04-21 10:10] VITALS: BP 90/60; PULSE 89; RESP 20; TEMP 36.1; O2SAT 91
[2024-04-21 10:16] VITALS: BP 104/54; PULSE 88; RESP 20; O2SAT 97
[2024-04-21 10:26] VITALS: BP 103/51; PULSE 84; RESP 20; O2SAT 98
--- NOTE | 2024-04-21 10:26 | ECG_ITS ---
APPROVED REPORT Exam: Resting ECG HR:83 bpm ECG Measurements Heart Rate 83 AXES AK 153 P 67 QRSd 173 QRS 190 QT 495 T 38 QTc 534 Conclusion ELECTRONIC VENTRICULAR PACEMAKER ABNORMAL RHYTHM ECG UNCONFIRMED REPORT Electronically signed by : Jacob Powell MD 04/27/2024 08:56:59
[2024-04-21 10:36] VITALS: BP 107/60; PULSE 83; RESP 20; O2SAT 99
== END 2024-04-21 10:58 | disposition home or self-care (01) ==
PROVIDERS: PCP Nurse Practitioner Family; Visit Provider Internal Medicine
DX: I48.20 Chronic atrial fibrillation, unspecified (principal); R93.1 Abnormal findings on diagnostic imaging of heart and coronary circulation; I20.89 Other forms of angina pectoris; Z95.2 Presence of prosthetic heart valve; I50.23 Acute on chronic systolic (congestive) heart failure
CPT/HCPCS: 80048; 85025; 85610; 92960; 93005; 93270; 93312; 93319; J3010

== ENCOUNTER 2024-06-19 09:38 | Outpatient (CLI) | payer MEDICARE, MEDICAID, SELFPAY ==
[2024-06-19 09:40] VITALS: BMI 26.4
[2024-06-19 10:03] LABS: Hematocrit 23.8 % (37.0-47.0); Hemoglobin 7.1 g/dL (12.2-16.2)
--- NOTE | 2024-06-19 11:00 | PC.NURSE ---
1100- blood bank called and pt has antibodies present and will need the unit ordered from [facility]. pt and daughter notified and wanted to come back tomorrow to get unit. RN explained pt needed to return to facility with blood band on her arm. pt and daughter verbalized understanding.
== END 2024-06-19 11:10 | disposition home or self-care (01) ==
LOC: INF 09:39
PROVIDERS: PCP Nurse Practitioner Family; Visit Provider Nurse Practitioner Family
DX: I48.91 Unspecified atrial fibrillation (principal); I25.10 Atherosclerotic heart disease of native coronary artery without angina pectoris
CPT/HCPCS: 36415; 85014; 85018; 86850; 86870

== ENCOUNTER 2024-06-20 11:36 | Outpatient (CLI) | payer MEDICARE, MEDICAID, SELFPAY ==
[2024-06-20] VITALS (11 sets, daily range): BP systolic 112–141; BP diastolic 47–70; PULSE 60–66; RESP 16–18; TEMP 36.4–36.7; O2SAT 97–100
== END 2024-06-20 15:19 | disposition home or self-care (01) ==
LOC: INF 11:37
PROVIDERS: PCP Nurse Practitioner Family; Visit Provider Nurse Practitioner Family
DX: I26.93 Single subsegmental thrombotic pulmonary embolism without acute cor pulmonale (principal)
CPT/HCPCS: 36430; P9016

== ENCOUNTER 2024-06-26 13:48 | Emergency (ER) | payer MEDICARE, MEDICAID, SELFPAY ==
[2024-06-26 14:46] VITALS: BP 142/67; PULSE 82; O2SAT 100
[2024-06-26 14:48] VITALS: BP 142/67; PULSE 79; RESP 20; TEMP 37.1; O2SAT 100; BMI 26.8
[2024-06-26 15:01] VITALS: BP 125/61; PULSE 74; O2SAT 100
--- OUTSIDE RECORDS SUMMARY | 2024-06-26 15:04 | XMS_ITS | Continuity of Care Document ---
Author Organization Unknown Medications Start Date End Date Medication Signa 71967204 atorvastatin 40 mg oral tabl et Take 1 tab(s) orally once a day 72450926 Vitamin D3 25 mcg tablet Aaron e 1 tab(s) orally once a day 27832691 ALPRAZolam 0.5 mg tablet Aaron e 1 tab(s) orally 2 times a day as needed for Anxiety 66847265 amiodarone 200 mg tablet Aaron e 1 tab(s) orally once a day 08718775 Vraylar 1.5 mg capsule Take 1 cap(s) orally once a day 96328532 penicillin V pot assium 250 mg oral tablet 250 mg oral tablet Take 1 tab(s) oral 2 times a day; HIGH RISK MEDICATION 33891281 pantoprazole 40 mg oral delayed release tablet Take 1 tab(s) orally once a day 45899880 acetaminophen 325 mg oral ta blet Take 2 tab(s) orally every 4 hours as needed for Mild Pain; Mild-moderate pain and/or fever 45800147 Ventolin HFA 90 mcg/inh inhalation aerosol Inhale 2 INH inhaled every 6 hours as needed for Dyspnea; Prn dyspnea and/or wheezing 99225881 Nystop 430562 units/g powder 1 application applied topically 3 times a day as needed for Rash; APPLY TO THE AFFECTED AREA(S) BY TOPICAL ROUTE TWO (2) TIMES PER DAY 51364664 citalopram 20 mg tablet Take 1 tab(s) orally once a day 20322263 Lantus Solostar Pen 100 units/mL subcutaneous solution 100 units/mL Subcutaneous solution Inject 10 units subcutaneous once a day (at bedtime); HIGH RISK MEDICATION 63819732 traZODone 50 mg tablet Take 1 tab(s) orally once (at bedtime) as needed for Insomnia 12370324 Farxiga 10 mg tablet Take 1 tab(s) orally once a day 70952596 95791138 Eliquis 5 mg oral tablet Aaron e 2 tab(s) orally 2 times a day for 4 day(s); HIGH RISK MEDICATION 96138298 Metoprolol Tartr ate 25 mg oral tablet Take 1 tab(s) orally 2 times a day 12414930 torsemide 20 mg oral tablet Take 1 tab(s) orally once a day 88327906 rOPINIRole 1 mg tablet Take 1 tab(s) orally once (at bedtime) 88038355 Eliquis 5 mg oral tablet Aaron e 1 tab(s) orally 2 times a day 80721753 albuterol 2.5 mg /3 mL (0.083%) solution Inhale 3 milliliter(s) by nebulizer every 6 hours as needed for Dyspnea; INHALE THREE (3) ML (1 VIAL) THREE (3) TIMES A DAY BY NEBULIZATION ROUTE NEEDED FOR 30 DAYS, FOR SHORTNESS OF BREATH. Problems Type Code Description Effective Start Effective End Onset/Exacerbation Date Primary J18.9 Pneumonia` unspecified organism 65535475 [id number] Other I26.99 Other pulmonary embolism without acute cor pulmonale 94984989 15702915 Other L89.321 Pressure ulcer o f left buttock` stage 1 75903169 27219802 Other I11.0 Hypertensive hea rt disease with heart failure 67574808 77019209 Other I50.9 Heart failure` unspecified 90627631 85334657 Other J44.9 Chronic obstruct funmilayo pulmonary disease` unspecified 93254515 70527699 Other E11.40 Type 2 diabetes mellitus with diabetic neuropathy` unsp 26089070 65302662 Other Z79.01 intermediate (curre nt) use of anticoagulants 67351286 11708787 Other Z79.4 intermediate (curre nt) use of insulin 01859816 [id number] Insurance Providers Payer Name Policy type / Covera ge type Policy ID Covered [employer] ID Policy [employer] Medicare PPO (2017 - ) [id number] Laxmi Cronin Patient Responsibility Patient Responsib ility (2017 - ) [id number] Lxami Cronin
[2024-06-26] MEDS: FLUCONAZOLE 100MG TABLET 200 MG PO (15:14)
[2024-06-26] MEDS: NYSTATIN OINT 100,000 UNITS/GM 15GM 15 GM TP (15:15)
[2024-06-26 15:21] LABS: Basophils % 0.3 % (0.1-2.0); Eosinophils # 0.2 Kmm3 (0.0-0.4); Eosinophils % 1.2 % (0.1-12.0); Hematocrit 29.7 % (37.0-47.0); Hemoglobin 9.3 g/dL (12.2-16.2); Immature Granulocytes # 0.05 10^3uL; Immature Granulocytes % 0.3 %; Lymphocytes % 6.8 % (10-50); Mean Corpuscular HGB Conc 31.3 g/dL (31.8-35.4); Mean Corpuscular Hemoglobin 24.5 pg (27.0-31.2); Mean Corpuscular Volume 78.2 fl (81-99); Mean Platelet Volume 10.5 fl (7.4-10.4); Monocytes # 0.8 K/mm3 (0.1-1.0); Monocytes % 5.6 % (1.7-9.3); Neutrophils # 12.5 K/mm3 (1.8-7.8); Neutrophils % 85.8 % (37.0-80.0); Nucleated Red Blood Cells # 0 10^3/uL; Nucleated Red Blood Cells % 0 %; Platelet Count 407 K/mm3 (142-424); Red Cell Distribution Width 18.6 % (11.5-17.5); Red Cell Distribution Width-SD 52.6 fL; White Blood Count 14.5 K/mm3 (4.8-10.8)
--- NOTE | 2024-06-26 15:21 | HMH.EDGENADL ---
Discharge Plan Disposition Patient Disposition: Home, Self-Care Condition: Good Prescriptions Prescriptions: New fluconazole 150 mg tablet 150 mg PO ONCE Qty: 1 0RF Rx Instructions: take one time on 06/29/24 nystatin 100,000 unit/gram ointment 1 applic topical TID Qty: 30 8RF No Action albuterol sulfate 2.5 mg /3 mL (0.083 %) solution for nebulization 2.5 mg inhalation TID PRN Patient Comments: INHALE THREE (3) ML (1 VIAL) THREE (3) TIMES A DAY BY NEBULIZATION ROUTE NEEDED FOR 30 DAYS, FOR SHORTNESS OF BREATH. (DME) True Metrix Glucose Test Strip Strip See Rx Instructions .ROUTE .MEDSUPPLY Qty: 10 Rx Instructions: As directed nystatin 100,000 unit/gram cream 1 applic topical ONCE (DME) insulin syringe-needle U-100 1 mL 31 gauge x 5/16 syringe See Rx Instructions .ROUTE .MEDSUPPLY Qty: 10 Rx Instructions: As directed nystatin [Nystop] 100,000 unit/gram powder topical Patient Comments: APPLY TO THE AFFECTED AREA(S) BY TOPICAL ROUTE TWO (2) TIMES PER DAY (DME) Dexcom G7 Sensor Device See Rx Instructions .ROUTE .MEDSUPPLY Qty: 1 Patient Comments: USE DIRECTED CHANGING EVERY 10 DAYS Rx Instructions: As directed Eliquis 5 mg tablet 5 mg PO BID Qty: 60 2RF Rx Instructions: Stop Date Jun 17 2024 albuterol sulfate 90 mcg/actuation HFA aerosol inhaler 2 inh inhalation QID PRN (Reason: shortness of breath or wheezing) 90 Days Qty: 8.5 2RF ropinirole 1 mg tablet 1 mg PO DAILY Vraylar 1.5 mg capsule 1.5 mg PO DAILY dapagliflozin propanediol [Farxiga] 10 mg tablet 10 mg PO DAILY Qty: 30 2RF cyanocobalamin (vitamin B-12) 1,000 mcg/mL solution 1,000 mcg SQ QMONTH Qty: 1 2RF trazodone 50 mg tablet 50 mg PO HS alprazolam 0.5 mg tablet 0.5 mg PO BIDP PRN (Reason: Anxiety) citalopram 20 mg tablet 20 mg PO HS Novolin 70/30 U-100 Insulin 100 unit/mL (70-30) suspension 0 unit SQ BID cholecalciferol (vitamin D3) 25 mcg (1,000 unit) Tablet 25 mcg PO DAILY insulin glargine [Lantus Solostar U-100 Insulin] 100 unit/mL (3 mL) insulin pen 8 unit SQ HS atorvastatin 40 mg Tablet 40 mg PO HS 30 Days Qty: 30 0RF clopidogrel 75 mg tablet 75 mg PO DAILY 30 Days Qty: 30 0RF Patient Comments: TAKE ONE TABLET BY MOUTH ONCE A DAY amiodarone 200 mg tablet 200 mg PO DAILY penicillin V potassium 250 mg tablet 250 mg PO BID torsemide 20 mg Tablet 20 mg PO DAILY 30 Days Qty: 30 0RF pantoprazole 40 mg Tablet,Delayed Release (Dr/Ec) 40 mg PO HS 30 Days Qty: 30 0RF Referrals Follow up/Referrals: Ivonne Jones APRN [Primary Care Provider] - See instructions Activity Restrictions/Add. Instructions Additional Instructions/Restrictions: You were evaluated in the emergency department today. At this time, your labs are not significantly changed from your prior labs, but it does look like you may be a little bit dry. Make sure to drink water. Call your family doctor to establish care for this visit to the emergency department and schedule follow-up within 48 hours to ensure improvement. I recommend that they recheck labs. If you have any worsening of your condition or any other concerning signs or symptoms, return to the emergency department or your primary care doctor for further evaluation. Nystatin ointment 3 times daily. Take Diflucan on 06/29 1 time. Continue putting nystatin ointment on until you have resolution of rash. Clinical Impressions Clinical Impression: Cutaneous candidiasis, CKD (chronic kidney disease), Hypokalemia, Chronic anemia Instructions Patient Instructions: DI for Skin Abscess Print Language Print Language: Frisian Discharge ED Provider: Ronda Barron General Adult HPI <Kra Payne MD - Last Filed: 06/26/24 15:24> General Chief complaint: Skin/Abscess/Foreign Body Stated complaint: blood Trans x 2 days- swell/legs, rash/chesta area Time Seen by Provider: 06/26/24 14:42 Mode of Arrival: Ambulatory Source of Information: Patient Description of Symptoms (Recalled from ER Triage Doc. by RN): Patient presents to ED with infection around her right breast. Patient reports she has been using OTC sprays and creams for 2 weeks and not helping at all. History of Present Illness HPI narrative: Please note that above description of symptoms, in this electronic medical record under categorization of recalled from ER triage doctor by RN are reflective of an initial nursing assessment, however, is not reflective of my full history and physical exam that was personally taken and clarified. Consequentially, this preceding description of symptoms, which may include the patient's categorized chief complaint in the EMR, do not reflect my personal clinical impression, and the ultimate description of history of present illness and patient stated complaints should be deferred to this section of the note. Unless stated otherwise or congruent with this section of the note, additional signs, symptoms, or incongruence should be interpreted as inaccurate with my clinical impression. Related Data Home Medications ?Medication ?Instructions ?Recorded ?Confirmed alprazolam 0.5 mg tablet 0.5 mg PO BIDP PRN Anxiety 12/12/23 04/29/24 cholecalciferol (vitamin D3) 25 25 mcg PO DAILY 12/12/23 04/29/24 mcg (1,000 unit) tablet citalopram 20 mg tablet 20 mg PO HS 12/12/23 04/29/24 insulin glargine 100 unit/mL (3 8 unit SQ HS 12/12/23 04/29/24 mL) subcutaneous pen (Lantus Solostar U-100 Insulin) insulin human U-100 NPH-regulr 0 unit SQ BID 12/12/23 04/29/24 70-30 mix 100 unit/mL subcutaneous susp (Novolin 70/30 U-100 Insulin) trazodone 50 mg tablet 50 mg PO HS 12/12/23 04/29/24 cariprazine 1.5 mg capsule 1.5 mg PO DAILY 01/23/24 04/29/24 (Vraylar) ropinirole 1 mg tablet 1 mg PO DAILY 01/23/24 04/29/24 amiodarone 200 mg tablet 200 mg PO DAILY 03/15/24 04/29/24 penicillin V potassium 250 mg 250 mg PO BID 03/15/24 04/29/24 tablet albuterol sulfate 2.5 mg/3 mL 2.5 mg inhalation TID PRN 04/22/24 04/29/24 (0.083 %) solution for nebulization blood sugar diagnostic (True #10 ea 04/22/24 04/29/24 Metrix Glucose Test Strip) blood-glucose sensor (Dexcom G7 #1 ea 04/22/24 04/29/24 Sensor device) insulin syringe-needle U-100 1 mL #10 ea 04/22/24 04/29/24 31 gauge x 06/26 nystatin 100,000 unit/gram topical 1 applic topical ONCE 04/22/24 04/29/24 cream nystatin 100,000 unit/gram topical topical 04/22/24 04/29/24 powder (Nystop) Previous Rx's ?Medication ?Instructions ?Recorded atorvastatin 40 mg tablet 40 mg PO HS 30 days #30 tabs 12/14/23 clopidogrel 75 mg tablet 75 mg PO DAILY 30 days #30 tabs 12/14/23 dapagliflozin propanediol 10 mg 10 mg PO DAILY #30 tabs 01/23/24 tablet (Farxiga) pantoprazole 40 mg tablet,delayed 40 mg PO HS 30 days #30 tabs 03/20/24 release torsemide 20 mg tablet 20 mg PO DAILY 30 days #30 tabs 03/20/24 cyanocobalamin (vitamin B-12) 1,000 mcg SQ QMONTH #1 mL 03/25/24 1,000 mcg/mL injection solution albuterol sulfate 90 mcg/actuation 2 inh inhalation QID PRN shortness 04/29/24 aerosol inhaler of breath or wheezing 90 days #8.5 grams apixaban 5 mg tablet (Eliquis) 5 mg PO BID #60 tabs 04/29/24 fluconazole 150 mg tablet 150 mg PO ONCE 1 dose #1 tab 06/26/24 nystatin 100,000 unit/gram topical 1 applic topical TID #30 grams 06/26/24 ointment Allergies Allergy/AdvReac Type Severity Reaction Status Date / Time No Known Allergies Allergy Verified 04/29/24 13:13 [facility] <Kar Payne MD - Last Filed: 06/26/24 15:24> [facility] Disclaimer: The information contained in this section may have been updated after the patient was seen, as this information can be updated by other users. Medical History (Updated 06/26/24 @ 15:58 by Ronda Barron DO) Screening for malignant neoplasm Pulmonary embolism on left Smoking greater than 30 pack years Pulmonary emphysema Chronic kidney disease Atrial fibrillation Abnormal echocardiogram Atypical angina Acute respiratory failure with hypoxia Pleural effusion on right Chronic endocarditis Acute on chronic HFrEF (heart failure with reduced ejection fraction) Coronary artery disease Pacemaker at end of battery life Right kidney mass Pancreatic mass Vomiting Dental abscess Pain, dental Hematuria Complication of urostomy Nausea vomiting and diarrhea Hypotension Generalized weakness Hypovolemia E. coli UTI (urinary tract infection) Infection due to extended-spectrum [id number] Klebsiella pneumoniae Yeast infection of the vagina Complicated UTI (urinary tract infection) STACY (acute kidney injury) Septic shock Severe sepsis with acute organ dysfunction Cellulitis Candidiasis Abdominal pannus Nausea & vomiting Presence of urostomy Presence of urostomy Vitamin D deficiency Biventricular cardiac pacemaker in situ Bacterial endocarditis Cardiac arrhythmia Bacteria present Obesity (BMI 30.0-34.9) Gastroenteritis due to norovirus Decreased blood volume Sepsis due to Streptococcus agalactiae Bacteremia Ileostomy in place Pacemaker Bladder cancer Diarrhea Fever UTI (urinary tract infection) Dehydration Diabetes mellitus Renal insufficiency Abscess of skin or subcutaneous tissue Renal insufficiency Valvular heart disease Palpitations Myocardial infarction HTN (hypertension), benign T2DM (type 2 diabetes mellitus) Depression CHF (congestive heart failure) Cancer Arrhythmia Anxiety Encounter for pre-operative cardiovascular clearance PAD (peripheral artery disease) Abnormal ankle brachial index (GOMEZ) PVD (peripheral vascular disease) HHD (hypertensive heart disease) Smoker HLD (hyperlipidemia) Carotid bruit Carotid artery stenosis CAD (coronary artery disease) Surgical History Hx of cholecystectomy H/O: hysterectomy Status post mitral valve replacement Hx of tonsillectomy History of mitral valve replacement S/P left atrial appendage ligation AICD (automatic cardioverter/defibrillator) present H/O tricuspid valve replacement History of coronary artery bypass graft Family History Other Cancer Diabetes Heart attack Social History Smoking Status: Current every day smoker tobacco type: cigarettes packs per day: 1 second hand exposure: Yes alcohol intake: never substance use type: marijuana current occupational status: disabled Travel in the last 8 weeks?: None household members: family housing: house number of children: 2 current occupational exposures/hazards: No caffeine: Yes Have you lived/traveled outside [place] in past 30 days?: No Contact w/someone who lives/traveled outside [place] past 30 days?: No Exposure to someone with infectious disease in past 14 days?: No Do you have a fever (greater than 100.4 F or 38 C)?: No Have you tested positive for COVID-19?: No Exposed to someone with COVID-19 in past 14 days?: No Do you have a sore throat?: No Do you have a cough?: No Do you have any weakness?: No Do you have any diarrhea?: No Are you experiencing any unusual bleeding?: No Do you have any muscle aches/pain?: No Do you have any abdominal pain?: No Are you experiencing loss of taste or smell?: No Other Medical History Have you received the Flu Vaccine for this season: No Have you received the Pneumonia Vaccine: No <Kar Payne MD - Last Filed: 06/26/24 15:24> ROS Obtained: Yes All systems reviewed & no additional complaints except as documented Physical Exam <Kar Payne MD - Last Filed: 06/26/24 15:24> General General appearance: alert Head Head exam: atraumatic and normocephalic Eye Eye exam: Present normal appearance, PERRL and EOMI Neck Neck exam: Present normal inspection, full ROM and trachea midline Respiratory Respiratory exam: Absent respiratory distress, wheezes, stridor, accessory muscle use or prolonged expiratory phase Cardiovascular Cardiovascular exam: Present other (Pulses equal symmetric in upper and lower extremities) Abdominal Exam Abdominal exam: Present soft; Absent distention, tenderness or pulsatile mass Extremities Exam Extremities exam: Absent edema Neurological Exam Neurological exam: Present alert, oriented X3 and CN II-XII intact; Absent motor sensory deficit Skin Skin exam: Present warm, dry, rash (Candidal fungal rash under right breast all the way down nearly to navel) and erythema; Absent diaphoresis Medical Decision Making <Kar Payne MD - Last Filed: 06/26/24 15:24> Medical Records Medical records reviewed: Yes I reviewed the patient's medical records. Screening: Per USPSTF and CDC recommendations, given the prevalence of disease in our region, it is our hospital?s policy to screen for HIV and viral Hepatitis for all patients aged 18 and over and those with ongoing risk factors. [place] Inquiry Pt receiving controlled substance: No [place] was queried for this patient: No Vital Signs: 06/26/24 14:46 06/26/24 14:48 06/26/24 15:01 Temperature 98.7 F Temperature Source Oral Pulse Rate 82 74 Pulse Rate [Right Brachial] 79 Respiratory Rate 20 Blood Pressure 142/67 H 125/61 Blood Pressure [Right Arm] 142/67 H Blood Pressure Mean 83 82 Blood Pressure Mean [Right Arm] 92 Blood Pressure Source Blood Pressure Source [Right Arm] Automatic Cuff Blood Pressure Position Blood Pressure Position [Right Arm] Supine 02 Sat by Pulse Oximetry 100 100 100 Oxygen Delivery Method Room Air 06/26/24 16:10 Temperature 98.7 F Temperature Source Oral Pulse Rate 80 Pulse Rate [Right Brachial] Respiratory Rate 20 Blood Pressure 134/80 Blood Pressure [Right Arm] Blood Pressure Mean Blood Pressure Mean [Right Arm] Blood Pressure Source Automatic Cuff Blood Pressure Source [Right Arm] Blood Pressure Position Supine Blood Pressure Position [Right Arm] 02 Sat by Pulse Oximetry Oxygen Delivery Method Room Air Lab Data Lab Results 06/26/24 15:07: WBC 14.5 H, RBC 3.80 L, Hgb 9.3 L, Hct 29.7 L, MCV 78.2 L, MCH 24.5 L, MCHC 31.3 L, RDW 18.6 H, Plt Count 407, MPV 10.5 H, Neut % (Auto) 85.8 H, Lymph % (Auto) 6.8 L, Mccracken % (Auto) 5.6, Eos % (Auto) 1.2, Baso % (Auto) 0.3, Neut # (Auto) 12.5 H, Lymph # (Auto) 1.0, Mccracken # (Auto) 0.8, Eos # (Auto) 0.2, Baso # (Auto) 0.0, Sodium 138, Potassium 3.4 L, Chloride 106, Carbon Dioxide 19 L, Anion Gap 16.4 H, BUN 58 H, Creatinine 2.50 H, Estimated Creat Clear 24, Estimated GFR 20 L, Est GFR ( Amer) 24 L, Glucose 242 H, Calcium 9.2, Total Bilirubin 0.4, AST 18, ALT 15, Alkaline Phosphatase 115, NT-Pro-B Natriuret Pep 4750 H, Total Protein 7.6, Albumin 4.4, Globulin 3.2, Albumin/Globulin Ratio 1.4 06/26/24 15:07 06/26/24 15:07 Orders (Tests/Meds): ED MEDICATIONS Discontinued Medications Generic Name Dose Route Start Last Admin Trade Name Freq PRN Reason Stop Dose Admin Fluconazole 200 mg 06/26/24 15:12 06/26/24 15:14 Fluconazole 100mg Tablet PO 06/26/24 15:13 200 mg ONCE ONE Administration Nystatin 15 gm 06/26/24 14:48 06/26/24 15:15 Nystatin Oint 100,000 Units/Gm 15gm TP 06/26/24 14:49 15 gm ONCE ONE Administration Potassium Chloride 40 meq 06/26/24 15:56 06/26/24 16:07 Potassium Chloride 20meq Tab PO 06/26/24 15:57 40 meq ONCE ONE Administration ORDERS Category Date Time Status CBC w/Auto Diff [Complete Blood Count Auto Diff] Stat Lab 06/26/24 15:07 Completed CMP [Comprehensive Metabolic Panel] Stat Lab 06/26/24 15:07 Completed NT Pro Brain Natriuretic Pep. Stat Lab 06/26/24 15:07 Completed Medical Decision Narrative: 64-year-old female presenting with rash and concern for swelling. She states that swellings been going on and off for the past couple months. Does not state that she is currently swollen, just worried about it. Her biggest concern is that she has a rash underneath her right breast that extends down to her abdomen. States that she has been trying creams and powders at home that have not seemed to help. Came in for further evaluation. No fevers or chills, nausea or vomiting. No other rash that she knows of. On physical exam, patient has erythematous, desquamated very tender appearing fungal moisture rash underneath the right breast that extends down toward the waistline. Noncellulitic, not indurated. Malodorous. Differential includes fungal infection, less likely to be cellulitic infection, elevated BNP, among others. Patient was given Diflucan and nystatin ointment. Prior to labs, care handed off to oncoming physician. [employer] Nurse disclaimer Much of this encounter note is an electronic industrial renderer spoken language to printed text. Electronic industrial renderer of the spoken language may permit errors. Although I have reviewed the note, some errors may still exist. <Ronda Barron, DO - Last Filed: 06/26/24 16:24> Vital Signs: 06/26/24 14:46 06/26/24 14:48 06/26/24 15:01 Temperature 98.7 F Temperature Source Oral Pulse Rate 82 74 Pulse Rate [Right Brachial] 79 Respiratory Rate 20 Blood Pressure 142/67 H 125/61 Blood Pressure [Right Arm] 142/67 H Blood Pressure Mean 83 82 Blood Pressure Mean [Right Arm] 92 Blood Pressure Source Blood Pressure Source [Right Arm] Automatic Cuff Blood Pressure Position Blood Pressure Position [Right Arm] Supine 02 Sat by Pulse Oximetry 100 100 100 Oxygen Delivery Method Room Air 06/26/24 16:10 Temperature 98.7 F Temperature Source Oral Pulse Rate 80 Pulse Rate [Right Brachial] Respiratory Rate 20 Blood Pressure 134/80 Blood Pressure [Right Arm] Blood Pressure Mean Blood Pressure Mean [Right Arm] Blood Pressure Source Automatic Cuff Blood Pressure Source [Right Arm] Blood Pressure Position Supine Blood Pressure Position [Right Arm] 02 Sat by Pulse Oximetry Oxygen Delivery Method Room Air Lab Data Lab Results 06/26/24 15:07: WBC 14.5 H, RBC 3.80 L, Hgb 9.3 L, Hct 29.7 L, MCV 78.2 L, MCH 24.5 L, MCHC 31.3 L, RDW 18.6 H, Plt Count 407, MPV 10.5 H, Neut % (Auto) 85.8 H, Lymph % (Auto) 6.8 L, Mccracken % (Auto) 5.6, Eos % (Auto) 1.2, Baso % (Auto) 0.3, Neut # (Auto) 12.5 H, Lymph # (Auto) 1.0, Mccracken # (Auto) 0.8, Eos # (Auto) 0.2, Baso # (Auto) 0.0, Sodium 138, Potassium 3.4 L, Chloride 106, Carbon Dioxide 19 L, Anion Gap 16.4 H, BUN 58 H, Creatinine 2.50 H, Estimated Creat Clear 24, Estimated GFR 20 L, Est GFR ( Amer) 24 L, Glucose 242 H, Calcium 9.2, Total Bilirubin 0.4, AST 18, ALT 15, Alkaline Phosphatase 115, NT-Pro-B Natriuret Pep 4750 H, Total Protein 7.6, Albumin 4.4, Globulin 3.2, Albumin/Globulin Ratio 1.4 Orders (Tests/Meds): ED MEDICATIONS Discontinued Medications Generic Name Dose Route Start Last Admin Trade Name Freq PRN Reason Stop Dose Admin Fluconazole 200 mg 06/26/24 15:12 06/26/24 15:14 Fluconazole 100mg Tablet PO 06/26/24 15:13 200 mg ONCE ONE Administration Nystatin 15 gm 06/26/24 14:48 06/26/24 15:15 Nystatin Oint 100,000 Units/Gm 15gm TP 06/26/24 14:49 15 gm ONCE ONE Administration Potassium Chloride 40 meq 06/26/24 15:56 06/26/24 16:07 Potassium Chloride 20meq Tab PO 06/26/24 15:57 40 meq ONCE ONE Administration ORDERS Category Date Time Status CBC w/Auto Diff [Complete Blood Count Auto Diff] Stat Lab 06/26/24 15:07 Completed CMP [Comprehensive Metabolic Panel] Stat Lab 06/26/24 15:07 Completed NT Pro Brain Natriuretic Pep. Stat Lab 06/26/24 15:07 Completed Medical Decision Narrative: 64-year-old female presenting with rash and concern for swelling. She states that swellings been going on and off for the past couple months. Does not state that she is currently swollen, just worried about it. Her biggest concern is that she has a rash underneath her right breast that extends down to her abdomen. States that she has been trying creams and powders at home that have not seemed to help. Came in for further evaluation. No fevers or chills, nausea or vomiting. No other rash that she knows of. On physical exam, patient has erythematous, desquamated very tender appearing fungal moisture rash underneath the right breast that extends down toward the waistline. Noncellulitic, not indurated. Malodorous. Differential includes fungal infection, less likely to be cellulitic infection, elevated BNP, among others. Patient was given Diflucan and nystatin ointment. Prior to labs, care handed off to oncoming physician. [employer] Nurse disclaimer Much of this encounter note is an electronic industrial renderer spoken language to printed text. Electronic industrial renderer of the spoken language may permit errors. Although I have reviewed the note, some errors may still exist. DO Anderson: Labs demonstrated very mild leukocytosis. Kidney function is not significantly different from her baseline, but she does have mildly elevated anion gap as well as mildly elevated BUN. I advised her of this and recommended hydration and follow-up with PCP for recheck over the next 48 to 72 hours. BNP is elevated but not significant different from prior with no evidence of volume overload or pulmonary edema on clinical exam. She has mild hypokalemia for which oral replacement was ordered. She does have mild leukocytosis with no fever or evidence of infection aside from her skin and soft tissue infection related to likely Viv. We are prescribing her medications to treat this. Ultimately at this time, I feel that she is appropriate for discharge home with close follow-up with PCP. Very strict return precautions were given and she was discharged after all questions were answered Critical Care <Kar Payne MD - Last Filed: 06/26/24 15:24> Critical Care Time Critical Care Time: No
[2024-06-26 15:30] LABS: Albumin Level 4.4 g/dl (3.5-5.0); Chloride 106 mmol/L (98-107); Potassium 3.4 mmoL/L (3.5-5.1); Sodium 138 mmol/L (136-145)
[2024-06-26 15:33] LABS: Alanine Aminotransferase 15 U/L (12-78); Albumin/Globulin Ratio 1.4 (1.1-1.8); Alkaline Phosphatase 115 U/L (38-126); Anion Gap 16.4 mEq/L (5-15); Aspartate Amino Transferase 18 U/L (14-36); Bilirubin,Total 0.4 mg/dl (0.2-1.3); Blood Urea Nitrogen 58 mg/dl (7-17); Carbon Dioxide 19 mmol/L (22.0-30.0); Creatinine Clearance Estimated 24 mL/min (50-200); Estimated Glomerular Filt Rate 20 ml/min (>60); GFR (African American) 24 ML/MIN (>60); Globulin 3.2 g/dL (1.3-3.2); Total Protein,Serum 7.6 g/dl (6.3-8.2)
[2024-06-26 15:34] LABS: Calcium 9.2 mg/dl (8.4-10.2); Glucose 242 mg/dl (74-100)
[2024-06-26 15:43] LABS: NT Pro Brain Natriuretic Pep. 4750 pg/mL (0-125)
[2024-06-26] MEDS: POTASSIUM CHLORIDE 20MEQ TAB 40 MEQ PO (16:07)
[2024-06-26 16:10] VITALS: BP 134/80; PULSE 80; RESP 20; TEMP 37.1; O2SAT 100
== END 2024-06-26 16:11 | disposition home or self-care (01) ==
PROVIDERS: Emergency Medicine; Emergency Provider Emergency Medicine; PCP Nurse Practitioner Family
DX: B37.2 Candidiasis of skin and nail (principal); R79.89 Other specified abnormal findings of blood chemistry; E87.6 Hypokalemia; N18.9 Chronic kidney disease, unspecified; D63.1 Anemia in chronic kidney disease; F17.210 Nicotine dependence, cigarettes, uncomplicated; E11.9 Type 2 diabetes mellitus without complications; I12.9 Hypertensive chronic kidney disease with stage 1 through stage 4 chronic kidney disease, or unspecified chronic kidney disease; Z79.4 Long term (current) use of insulin
CPT/HCPCS: 80053; 83880; 85025; 99283

== ENCOUNTER 2024-07-01 13:47 | Outpatient (CLI) | payer MEDICARE, MEDICAID, SELFPAY ==
--- OUTSIDE RECORDS SUMMARY | 2024-07-01 13:48 | XMS_ITS | Continuity of Care Document ---
Author Organization Unknown Medications Start Date End Date Medication Signa [id number] atorvastatin 40 mg oral tabl et Take 1 tab(s) orally once a day 32835055 Vitamin D3 25 mcg tablet Aaron e 1 tab(s) orally once a day 77640593 ALPRAZolam 0.5 mg tablet Aaron e 1 tab(s) orally 2 times a day as needed for Anxiety 68531477 amiodarone 200 mg tablet Aaron e 1 tab(s) orally once a day 50865455 Vraylar 1.5 mg capsule Take 1 cap(s) orally once a day 02400352 penicillin V pot assium 250 mg oral tablet 250 mg oral tablet Take 1 tab(s) oral 2 times a day; HIGH RISK MEDICATION 52326744 pantoprazole 40 mg oral delayed release tablet Take 1 tab(s) orally once a day 29441487 acetaminophen 325 mg oral ta blet Take 2 tab(s) orally every 4 hours as needed for Mild Pain; Mild-moderate pain and/or fever 07135174 Ventolin HFA 90 mcg/inh inhalation aerosol Inhale 2 INH inhaled every 6 hours as needed for Dyspnea; Prn dyspnea and/or wheezing 85486907 Nystop 624647 units/g powder 1 application applied topically 3 times a day as needed for Rash; APPLY TO THE AFFECTED AREA(S) BY TOPICAL ROUTE TWO (2) TIMES PER DAY 82241010 citalopram 20 mg tablet Take 1 tab(s) orally once a day 11469291 Lantus Solostar Pen 100 units/mL subcutaneous solution 100 units/mL Subcutaneous solution Inject 10 units subcutaneous once a day (at bedtime); HIGH RISK MEDICATION 99341477 traZODone 50 mg tablet Take 1 tab(s) orally once (at bedtime) as needed for Insomnia 30584123 Farxiga 10 mg tablet Take 1 tab(s) orally once a day 32980740 34475716 Eliquis 5 mg oral tablet Aaron e 2 tab(s) orally 2 times a day for 4 day(s); HIGH RISK MEDICATION 63035527 Metoprolol Tartr ate 25 mg oral tablet Take 1 tab(s) orally 2 times a day 02738317 torsemide 20 mg oral tablet Take 1 tab(s) orally once a day 86850864 rOPINIRole 1 mg tablet Take 1 tab(s) orally once (at bedtime) 56425443 Eliquis 5 mg oral tablet Aaron e 1 tab(s) orally 2 times a day 64223235 albuterol 2.5 mg /3 mL (0.083%) solution Inhale 3 milliliter(s) by nebulizer every 6 hours as needed for Dyspnea; INHALE THREE (3) ML (1 VIAL) THREE (3) TIMES A DAY BY NEBULIZATION ROUTE NEEDED FOR 30 DAYS, FOR SHORTNESS OF BREATH. Problems Type Code Description Effective Start Effective End Onset/Exacerbation Date Primary J18.9 Pneumonia` unspecified organism 95485437 [id number] Other I26.99 Other pulmonary embolism without acute cor pulmonale 95366742 76037857 Other L89.321 Pressure ulcer o f left buttock` stage 1 51479988 59670409 Other I11.0 Hypertensive hea rt disease with heart failure 87987803 89758920 Other I50.9 Heart failure` unspecified 88538372 55321150 Other J44.9 Chronic obstruct funmilayo pulmonary disease` unspecified 85507874 99493666 Other E11.40 Type 2 diabetes mellitus with diabetic neuropathy` unsp 06745503 73920269 Other Z79.01 FDC (curre nt) use of anticoagulants 66980204 54836500 Other Z79.4 FDC (curre nt) use of insulin [id number] [id number] Insurance Providers Payer Name Policy type / Covera ge type Policy ID Covered Alliance Party ID Policy Garnica Hum[employer] Medicare Hum[employer] Medicare PPO (2017 - ) [id number] Laxmi Cronin Patient Responsibility Patient Responsib ility (2017 - ) [id number] Laxmi Cronin
--- NOTE | 2024-07-01 14:00 | CT_ITS ---
FINAL REPORT CLINICAL HISTORY: lung cancer screening CURRENT SMOKER 1.5PPD X48 YEARS COMPARISON: CTA chest 03/15/[address] chest 03/05/2024 FINDINGS: CT CHEST LOW DOSE SCREENING HISTORY: Screening exam for lung cancer. DOSE: CTDI vol: 2.90 mGy, DLP: 96.38 mGy*cm TECHNIQUE: Axial CT without IV contrast administration using low dose protocol. This study was performed with techniques to keep radiation doses as low as reasonably achievable, (ALARA). Individualized dose reduction techniques using automated exposure control or adjustment of mA and/or kV according to the patient's size were employed. No acute lung disease is present. There is a 2 mm nodule in the right upper lobe on image 26 of series 3 which is stable to 03/05/2024. There is evidence of old calcified granulomatous disease. No pleural or pericardial effusion is seen. No adenopathy or mass lesion is present. Limited images of the upper abdomen demonstrate a right adrenal nodule, stable and likely adenoma. IMPRESSION: Stable right upper lobe nodule. LUNG RADS CATEGORY 2 RECOMMENDATION: 12 month LDCT follow up Reviewed, Interpreted and Dictated by Whit Dobbs MD Transcribed by Yasemin Hodges Authenticated and [facility]
[2024-07-01 15:00] VITALS: PULSE 60
[2024-07-01] MEDS: ALBUTEROL 0.083% 2.5 MG/3 ML NEB IH (15:00)
== END 2024-07-01 23:59 | disposition home or self-care (01) ==
LOC: RAD 13:47
PROVIDERS: PCP Nurse Practitioner Family; Visit Provider Internal Medicine Pulmonary Disease
DX: R91.1 Solitary pulmonary nodule (principal); F17.210 Nicotine dependence, cigarettes, uncomplicated; J44.9 Chronic obstructive pulmonary disease, unspecified; Z12.2 Encounter for screening for malignant neoplasm of respiratory organs
CPT/HCPCS: 71271; 94060; 94618; 94640; 94726; 94729

== ENCOUNTER 2024-07-02 14:08 | Outpatient (CLI) | payer MEDICARE, MEDICAID, SELFPAY ==
--- OUTSIDE RECORDS SUMMARY | 2024-07-02 14:10 | XMS_ITS | Continuity of Care Document ---
Author Organization Unknown Medications Start Date End Date Medication Signa [id number] atorvastatin 40 mg oral tabl et Take 1 tab(s) orally once a day 68781832 Vitamin D3 25 mcg tablet Aaron e 1 tab(s) orally once a day 52564581 ALPRAZolam 0.5 mg tablet Aaron e 1 tab(s) orally 2 times a day as needed for Anxiety 81499998 amiodarone 200 mg tablet Aaron e 1 tab(s) orally once a day 12958614 Vraylar 1.5 mg capsule Take 1 cap(s) orally once a day 33303783 penicillin V pot assium 250 mg oral tablet 250 mg oral tablet Take 1 tab(s) oral 2 times a day; HIGH RISK MEDICATION 12284996 pantoprazole 40 mg oral delayed release tablet Take 1 tab(s) orally once a day 19627037 acetaminophen 325 mg oral ta blet Take 2 tab(s) orally every 4 hours as needed for Mild Pain; Mild-moderate pain and/or fever 68877402 Ventolin HFA 90 mcg/inh inhalation aerosol Inhale 2 INH inhaled every 6 hours as needed for Dyspnea; Prn dyspnea and/or wheezing 95048900 Nystop 937815 units/g powder 1 application applied topically 3 times a day as needed for Rash; APPLY TO THE AFFECTED AREA(S) BY TOPICAL ROUTE TWO (2) TIMES PER DAY 35442432 citalopram 20 mg tablet Take 1 tab(s) orally once a day 16660436 Lantus Solostar Pen 100 units/mL subcutaneous solution 100 units/mL Subcutaneous solution Inject 10 units subcutaneous once a day (at bedtime); HIGH RISK MEDICATION 53258266 traZODone 50 mg tablet Take 1 tab(s) orally once (at bedtime) as needed for Insomnia 33716566 Farxiga 10 mg tablet Take 1 tab(s) orally once a day 93036420 53137748 Eliquis 5 mg oral tablet Aaron e 2 tab(s) orally 2 times a day for 4 day(s); HIGH RISK MEDICATION 38056447 Metoprolol Tartr ate 25 mg oral tablet Take 1 tab(s) orally 2 times a day 28095090 torsemide 20 mg oral tablet Take 1 tab(s) orally once a day 29413378 rOPINIRole 1 mg tablet Take 1 tab(s) orally once (at bedtime) 54612233 Eliquis 5 mg oral tablet Aaron e 1 tab(s) orally 2 times a day 95372523 albuterol 2.5 mg /3 mL (0.083%) solution Inhale 3 milliliter(s) by nebulizer every 6 hours as needed for Dyspnea; INHALE THREE (3) ML (1 VIAL) THREE (3) TIMES A DAY BY NEBULIZATION ROUTE NEEDED FOR 30 DAYS, FOR SHORTNESS OF BREATH. Problems Type Code Description Effective Start Effective End Onset/Exacerbation Date Primary J18.9 Pneumonia` unspecified organism [id number] Other I26.99 Other pulmonary embolism without acute cor pulmonale 12909462 23411650 Other L89.321 Pressure ulcer o f left buttock` stage 1 43715432 77812150 Other I11.0 Hypertensive hea rt disease with heart failure 58147189 80084043 Other I50.9 Heart failure` unspecified 08959079 36562333 Other J44.9 Chronic obstruct funmilayo pulmonary disease` unspecified 04558366 98841396 Other E11.40 Type 2 diabetes mellitus with diabetic neuropathy` unsp 50545930 27930029 Other Z79.01 residential (curre nt) use of anticoagulants 97380762 87362920 Other Z79.4 residential (curre nt) use of insulin [id number] [id number] Insurance Providers Payer Name Policy type / Covera ge type Policy ID Covered Democrat ID Policy Garnica Humana Medicare Humana Medicare PPO (2017 - ) [id number] Laxmi Cronin Patient Responsibility Patient Responsib ility (2017 - ) [id number] Laxmi Cronin
[2024-07-02 14:45] LABS: D-Dimer 0.94 ug/mL (0.0-0.5)
== END 2024-07-02 23:59 | disposition home or self-care (01) ==
LOC: LAB 14:09
PROVIDERS: PCP Nurse Practitioner Family; Visit Provider Internal Medicine Pulmonary Disease
DX: I26.92 Saddle embolus of pulmonary artery without acute cor pulmonale (principal)
CPT/HCPCS: 36415; 85378

== ENCOUNTER 2024-10-05 15:55 | Observation (INO) | payer MEDICARE, SELFPAY ==
[2024-10-05 16:09] VITALS: BP 136/83; PULSE 93; RESP 16; TEMP 36.5; O2SAT 100; BMI 27.1
--- NOTE | 2024-10-05 16:10 | ED_ITS ---
<Statement entered by Oly Cardenas DO - 10/06/24 20:37> I was consulted by the JOSEFINA, and we discussed the complexity of problems being addressed. I approve the treatment and management plan for this patient's care in the emergency department, thus performing a substantial portion of the medical decision making. Oly Cardenas DO Discharge Plan Disposition Patient Disposition: Admitted Condition: Good Clinical Impressions Clinical Impression: Failure to thrive, STACY (acute kidney injury) Discharge ED Provider: Oly Cadrenas General Adult HPI General Chief complaint: Weakness Stated complaint: Diabetic,sent by Ivonne Jones Time Seen by Provider: 10/05/24 16:01 Mode of Arrival: Ambulatory Source of Information: Patient, Relative and Medical Record Limitations: No Limitations History of Present Illness HPI narrative: 64-year-old female presents to the emergency department with her sister and her lifelong friend , at the request of her PCPs office. For potential placement , patient has had essentially 12-hour to 24-hour care for quite some time, unfortunately her nascar racer was sent to senior living a week ago and was found in her cell last night . Thus, leaving patient essentially homeless and without care. Concern from PCPs office for medical noncompliance/poor hygiene, and social situation/living situation thus prompted emergency department visit. Patient at the bedside is alert oriented at her neurological/behavioral baseline, has no acute complaints, does admit to current everyday tobacco use and current everyday marijuana use, denies any alcohol use, when asking if she has been taking her medications as prescribed she states some of them ., Unsure if nascar racer/interim caretakers over the last week have adequately been administering the patient's medications to her. Initial triage vitals are unremarkable. Past medical history is consistent with CKD, anemia, emphysema, hypothyroidism, T2DM insulin-dependent, atrial fibrillation on anticoagulation therapy with Eliquis, restless leg syndrome, status post urostomy bag in place from previous bladder carcinoma resection, GERD, carotid artery stenosis, coronary artery disease, AICD implantable defibrillator, history of tricuspid valve replacement, anxiety, peripheral vascular disease, HFrEF, data deficient history of chronic endocarditis. Please note that above description of symptoms, in this electronic medical record under categorization of recalled from ER triage doctor by RN are reflective of an initial nursing assessment, however, is not reflective of my full history and physical exam that was personally taken and clarified. Consequentially, this preceding description of symptoms, which may include the patient's categorized chief complaint in the EMR, do not reflect my personal clinical impression, and the ultimate description of history of present illness and patient stated complaints should be deferred to this section of the note. Unless stated otherwise or congruent with this section of the note, additional signs, symptoms, or incongruence should be interpreted as inaccurate with my clinical impression. Onset (ago): unknown Related Data Home Medications ?Medication ?Instructions ?Recorded ?Confirmed alprazolam 0.5 mg tablet 0.5 mg PO BIDP PRN Anxiety 1 07/02/24 cholecalciferol (vitamin D3) 25 25 mcg PO DAILY 07/02/24 mcg (1,000 unit) tablet citalopram 20 mg tablet 20 mg PO HS 12/12/23 5 insulin glargine 100 unit/mL (3 8 unit SQ HS 12/12/23 07/02/24 mL) subcutaneous pen (Lantus Solostar U-100 Insulin) insulin human U-100 NPH-regulr 0 unit SQ BID 12/12/23 07/02/24 70-30 mix 100 unit/mL subcutaneous susp (Novolin 70/30 U-100 Insulin) trazodone 50 mg tablet 50 mg PO HS 12/12/23 5 cariprazine 1.5 mg capsule 1.5 mg PO DAILY 01/23/24 (Vraylar) ropinirole 1 mg tablet 1 mg PO DAILY 01/23/2407/02 amiodarone 200 mg tablet 200 mg PO DAILY 03/15/24 penicillin V potassium 250 mg 250 mg PO BID 03/15/24 0 07/02/24 tablet albuterol sulfate 2.5 mg/3 mL 2.5 mg inhalation TID MS N 04/22/24 07/02/24 (0.083 %) solution for nebulization blood sugar diagnostic (True #10 ea 04/22/24 07/02/24 Metrix Glucose Test Strip) blood-glucose sensor (Dexcom G7 #1 ea 04/22/24 5 Sensor device) insulin syringe-needle U-100 1 mL #10 ea 04/22/2406/12 31 gauge x 5/16 nystatin 100,000 unit/gram topical 1 applic topical ON CE 04/22/24 07/02/24 cream nystatin 100,000 unit/gram topical topical 04/22/24 powder (Nystop) insulin lispro 100 unit/mL SQ 07/02/24 07/02/24 subcutaneous solution levothyroxine 25 mcg tablet 25 mcg PO DAILY 07/02/24 0 07/02/24 Previous Rx's ?Medication ?Instructions ?Recorded atorvastatin 40 mg tablet 40 mg PO HS 30 days #30 tabs 12/14/23 clopidogrel 75 mg tablet 75 mg PO DAILY 30 days #30 t abs 12/14/23 dapagliflozin propanediol 10 mg 10 mg PO DAILY #30 tab s 01/23/24 tablet (Farxiga) pantoprazole 40 mg tablet,delayed 40 mg PO HS 30 days #30 tabs 03/20/24 release torsemide 20 mg tablet 20 mg PO DAILY 30 days #30 t abs 03/20/24 cyanocobalamin (vitamin B-12) 1,000 mcg SQ QMONTH #1 m L 03/25/24 1,000 mcg/mL injection solution fluconazole 150 mg tablet 150 mg PO ONCE 1 dose #1 tab 06/26/24 nystatin 100,000 unit/gram topical 1 applic topical TI D #30 grams 06/26/24 ointment albuterol sulfate 90 mcg/actuation 2 inh inhalation QI D PRN shortness 07/09/24 aerosol inhaler of breath or wheezing 90 day s #8.5 grams apixaban 5 mg tablet (Eliquis) See Rx Instructions .Ro fernando 07/09/24 .COMPLEX #60 tabs Allergies Allergy/AdvReac Type Severity Reaction Status Date / Time No Known Allergies Allergy Verified 07/02/24 13:37 [facility] Disclaimer: The information contained in this section may have been updated after the patient was seen, as this information can be updated by other users. Medical History Screening for malignant neoplasm Pulmonary embolism on left Smoking greater than 30 pack years Pulmonary emphysema Chronic kidney disease Atrial fibrillation Abnormal echocardiogram Atypical angina Acute respiratory failure with hypoxia Pleural effusion on right Chronic endocarditis Acute on chronic HFrEF (heart failure with reduced ejection fraction) Coronary artery disease Pacemaker at end of battery life Right kidney mass Pancreatic mass Vomiting Dental abscess Pain, dental Hematuria Complication of urostomy Nausea vomiting and diarrhea Hypotension Generalized weakness Hypovolemia E. coli UTI (urinary tract infection) Infection due to extended-spectrum [id number] Klebsiella pneumoniae Yeast infection of the vagina Complicated UTI (urinary tract infection) ecoli and kleb pneumonia STACY (acute kidney injury) labs at baseline Septic shock Severe sepsis with acute organ dysfunction v/s and labs wnl Cellulitis Candidiasis Abdominal pannus Nausea & vomiting Presence of urostomy draining clear urine Presence of urostomy Vitamin D deficiency Biventricular cardiac pacemaker in situ Bacterial endocarditis Cardiac arrhythmia Bacteria present Obesity (BMI 30.0-34.9) Gastroenteritis due to norovirus Decreased blood volume Sepsis due to Streptococcus agalactiae Bacteremia Ileostomy in place Pacemaker Bladder cancer Diarrhea Fever UTI (urinary tract infection) Dehydration Diabetes mellitus Renal insufficiency Abscess of skin or subcutaneous tissue Renal insufficiency Valvular heart disease Palpitations Myocardial infarction HTN (hypertension), benign T2DM (type 2 diabetes mellitus) Depression CHF (congestive heart failure) Cancer Arrhythmia Anxiety Encounter for pre-operative cardiovascular clearance PAD (peripheral artery disease) Abnormal ankle brachial index (GOMEZ) PVD (peripheral vascular disease) HHD (hypertensive heart disease) Smoker HLD (hyperlipidemia) Carotid bruit Carotid artery stenosis CAD (coronary artery disease) Surgical History Hx of cholecystectomy H/O: hysterectomy Status post mitral valve replacement Hx of tonsillectomy History of mitral valve replacement S/P left atrial appendage ligation AICD (automatic cardioverter/defibrillator) present H/O tricuspid valve replacement History of coronary artery bypass graft Family History Other Cancer Diabetes Heart attack Social History Smoking Status: Current every day smoker tobacco type: cigarettes packs per day: 1 second hand exposure: Yes alcohol intake: never substance use type: marijuana current occupational status: disabled Travel in the last 8 weeks?: None household members: family housing: house number of children: 2 current occupational exposures/hazards: No caffeine: Yes Have you lived/traveled outside [place] in past 30 days?: No Contact w/someone who lives/traveled outside [place] past 30 days?: No Exposure to someone with infectious disease in past 14 days?: No Do you have a fever (greater than 100.4 F or 38 C)?: No Have you tested positive for COVID-19?: No Exposed to someone with COVID-19 in past 14 days?: No Do you have a sore throat?: No Do you have a cough?: No Do you have any weakness?: No Do you have any diarrhea?: No Are you experiencing any unusual bleeding?: No Do you have any muscle aches/pain?: No Do you have any abdominal pain?: No Are you experiencing loss of taste or smell?: No Other Medical History Have you received the Flu Vaccine for this season: No Have you received the Pneumonia Vaccine: Yes ROS Obtained: Yes All systems reviewed & no additional complaints except as documented Physical Exam General General appearance: alert and in no apparent distress Comment: Unkept, non-ill appearing female Head Head exam: atraumatic and normocephalic Eye Eye exam: Present PERRL and EOMI ENT ENT exam: Present mucous membranes moist Neck Neck exam: Present normal inspection Chest Chest inspection: Present normal inspection and symmetric chest wall rise Respiratory Respiratory exam: Present normal lung sounds bilaterally; Absent respiratory distress, wheezes or stridor Cardiovascular Cardiovascular exam: Present regular rate and normal rhythm Abdominal Exam Abdominal exam: Present soft; Absent tenderness, guarding or rebound Comment: Does have a urostomy bag in place with adequate output Extremities Exam Extremities exam: Present normal inspection Neurological Exam Neurological exam: Present alert and oriented X3 Psychiatric Psychiatric exam: Present normal affect Skin Skin exam: Present warm, dry and other (Ecchymosis noted on bilateral upper extremities, with different areas of abrasions) Medical Decision Making Medical Records Medical records reviewed: Yes I reviewed the patient's medical records. Screening: Per USPSTF and CDC recommendations, given the prevalence of disease in our region, it is our hospital?s policy to screen for HIV and viral Hepatitis for all patients aged 18 and over and those with ongoing risk factors. [place] Inquiry Pt receiving controlled substance: No [place] was queried for this patient: No Vital Signs: 10/05/24 16:09 10/05/24 18:16 Temperature 97.7 F 97.8 F Temperature Source Oral Oral Pulse Rate 93 H Pulse Rate [Right Radial] 93 H Respiratory Rate 16 15 Blood Pressure 135/80 Blood Pressure [Right Arm] 136/83 Blood Pressure Mean [Right Arm] 100 Blood Pressure Source Automatic Cuff Blood Pressure Source [Right Arm] Automatic Cuff Blood Pressure Position Sitting Blood Pressure Position [Right Arm] Sitting 02 Sat by Pulse Oximetry 100 Oxygen Delivery Method Room Air Room Air Lab Data Lab results reviewed: Yes I reviewed the patient's lab results. Lab Results 10/05/24 16:43: WBC 7.5, RBC 4.06 L, Hgb 9.5 L, Hct 31.3 L, MCV 77.1 L, MCH 23.4 L, MCHC 30.4 L, RDW 19.3 H, Plt Count 368, MPV 10.6 H, Neut % (Auto) 76.8, Lymph % (Auto) 16.2, [place]anan % (Auto) 4.7, Eos % (Auto) 1.5, Baso % (Auto) 0.5, Neut # (Auto) 5.7, Lymph # (Auto) 1.2, [place] # (Auto) 0.4, Eos # (Auto) 0.1, Baso # (Auto) 0.0, Sodium 143, Potassium 3.4 L, Chloride 113 H, Carbon Dioxide 12 L, A nion Gap 21.4 H, BUN 49 H, Creatinine 3.20 H, Estimated Creat Clear 17, E stimated GFR 15 L*, Est GFR ( Amer) 18 L*, Glucose 132 H, Calcium 9.5, Magnesium 1.9, Total Bilirubin 0.8, AST 23, ALT 12, Alkaline Phosphatase 156 H, Troponin I 0.02, NT-Pro-B Natriuret Pep 4630 H, Total Protein 8.6 H, Albumin 4.8, Globulin 3.8 H, Albumin/Globulin Ratio 1.3, Lipase 97 10/05/24 16:57: VBG pH 7.25 L, VBG pCO2 31.2 L, VBG pO2 91.7 H, VBG HCO3 13.3 L, VBG Total CO2 14.2 L, VBG O2 Saturation 95.6 H, VBG Base Excess -14.0 L, VBG Lactic Acid 1.1 10/05/24 17:11: Urine Color Yellow, Urine Appearance Clear, Urine pH 8.5, Ur Specific [place] 1.010, Urine Protein 1+ A, Urine Glucose (UA) Negative, Urine Ketones Negative, Urine Blood Trace-i, Urine Nitrate Negative, Urine Bilirubin Negative, Urine Urobilinogen 0.2, Ur Leukocyte Esterase 3+ A, Urine RBC Occasional, Urine WBC 10-20, Ur Squamous Epith Cells Occasional, Uric Acid Crystals Trace, Urine Bacteria 4+, Urine Opiates Screen Negative, Urine Methadone Screen Negative, Ur Barbituates Screen Negative, Ur Phencyclidine Scrn Negative, Ur Amphetamines Screen Negative, U Benzodiazepines Scrn Negative, Urine Cocaine Screen Negative, U Marijuana (THC) Screen Positive H 10/05/24 16:43 10/05/24 16:43 Orders (Tests/Meds): ED MEDICATIONS Discontinued Medications Generic Name Dose Route Start Last Admin Trade Name Freq PRN Reason Stop Dose Admin Sodium Chloride 1,000 mls @ 999 mls/hr 10/05/24 17:26 10/05/24 17:44 Sod Chlor 0.9% 1000ml Bag IV 10/05/24 18:26 999 mls/hr .Q1H1M ONE Administration ORDERS Category Date Time Status Complete Blood Count Auto Diff Stat Lab 10/05/24 16:43 Completed Comprehensive Metabolic Panel Stat Lab 10/05/24 16:43 Completed Creatine Kinase Stat Lab 10/05/24 17:52 Ordered Drug Screen,Urine Stat Lab 10/05/24 17:11 Completed Hemoglobin A1C Stat Lab 10/05/24 16:43 Received Lactic Acid Stat Lab 10/05/24 17:51 Ordered Lipase Stat Lab 10/05/24 16:43 Completed Magnesium Stat Lab 10/05/24 16:43 Completed NT Pro Brain Natriuretic Pep. Stat Lab 10/05/24 16:43 Completed Troponin I Q3H Lab 10/05/24 19:30 Ordered Troponin I Q3H Lab 10/05/24 22:30 Ordered Troponin I Stat Lab 10/05/24 16:43 Completed Urinalysis and Microscopic Stat Lab 10/05/24 17:11 Completed Urine Culture Stat Micro 10/05/24 17:11 Received VBG [Venous Blood Gas] Stat RT 10/05/24 16:57 Completed Medical Decision Narrative: 64-year-old female presents the emergency department for multiple medical complaints see HPI for detail past medical history, differential diagnosis to include but not limited to, cardiac arrhythmia, electrolyte disturbance, medication noncompliance, HHS, DKA, hypovolemia, acute kidney injury, failure to thrive among others. I discussed this patient's case with the attending physician Dr. Cardenas Will obtain basic laboratory studies, proBNP, troponin, urinalysis, UDS, EKG, VBG, A1c, lipase, magnesium level. I along with the attending physician for the patient's EKG, at approximately 1647, the paced rhythm at 87 bpm, pacer spikes, QT interval is 310/3054, there is no STEMI. CBC is notable for hemoglobin 9.5, medic at 31.3, MCV is decreased to 77.1 otherwise unremarkable CBC CMP is notable for mild hypokalemia at 3.4, anion gap is elevated at 21.4, BUN is elevated at 49, creatinine is elevated at 3.2, which is outside the patient's baseline of CKD, hyperglycemia at 132, ALP is elevated 156 otherwise unremarkable CMP pH is 7.25, pCO2 is decreased at 31.2, PO2 is 91.7, bicarb is decreased 13.3, will give 1 L IV NS. pro BNP mildly elevated at 4630 Troponin is 0.02 Lipase within normal UA is notable for 1+ proteinuria, negative nitrites, 3+ leukocyte esterase, trace hematuria. I discussed this patient's case with the on-call hospitalist Dr. Santoyo at approximately 5:50 PM, he is agreement with current admission plan/treatment plan for acute on chronic kidney injury, failure to thrive and possible admission for debilitation/jail placement/care. He would like me to add on lactic acid level as well as creatinine kinase level. UDS is positive for THC otherwise negative Urinalysis microscopic analysis is notable for occasional RBCs, 10-20 WBCs, occasional squamous epithelial cells, trace uric acid crystals, 4+ urine bacteria. Critical Care Critical Care Time Critical Care Time: No
--- NOTE | 2024-10-05 16:47 | ECG_ITS ---
APPROVED REPORT Exam: Resting ECG HR:87 bpm ECG Measurements Heart Rate 87 AXES QRSd 113 QRS 90 QT 310 T 37 QTc 354 Conclusion UNCERTAIN IRREGULAR RHYTHM ELECTRONIC VENTRICULAR PACEMAKER -- CONTOUR ANALYSIS BASED ON INTRINSIC RHYTHM MODERATE INTRAVENTRICULAR CONDUCTION DELAY [110+ ms QRS DURATION] NONSPECIFIC ST & T-WAVE ABNORMALITY ABNORMAL RHYTHM ECG UNCONFIRMED REPORT Electronically signed by : TIANNA YATES, 10/05/2024 23:18:20
--- NOTE | 2024-10-05 16:50 | PC.NURSE ---
I notified Raeann in resp that a green top was sent to lab for a VBG
[2024-10-05 17:03] LABS: Lactate Venous 1.1 mmol/L (0.4-2.0); VBG HCO3 13.3 mmol/L (23-30); VBG PCO2 31.2 mmol/L (35-51); VBG PH 7.25 mmol/L (7.31-7.41); VBG PO2 91.7 mmol/L (28-40)
[2024-10-05 17:08] LABS: Hematocrit 31.3 % (37.0-47.0); Hemoglobin 9.5 g/dL (12.2-16.2); Immature Granulocytes % 0.3 %; Mean Corpuscular HGB Conc 30.4 g/dL (31.8-35.4); Mean Corpuscular Hemoglobin 23.4 pg (27.0-31.2); Mean Corpuscular Volume 77.1 fl (81-99); Nucleated Red Blood Cells % 0 %; Platelet Count 368 K/mm3 (142-424); Red Blood Count 4.06 M/mm3 (4.20-5.40); Red Cell Distribution Width-SD 53.9 fL; White Blood Count 7.5 K/mm3 (4.8-10.8)
[2024-10-05 17:10] LABS: Albumin Level 4.8 g/dl (3.5-5.0); Chloride 113 mmol/L (98-107)
[2024-10-05 17:11] LABS: Potassium 3.4 mmoL/L (3.5-5.1); Sodium 143 mmol/L (136-145)
[2024-10-05 17:13] LABS: Alanine Aminotransferase 12 U/L (12-78); Albumin/Globulin Ratio 1.3 (1.1-1.8); Alkaline Phosphatase 156 U/L (38-126); Anion Gap 21.4 mEq/L (5-15); Aspartate Amino Transferase 23 U/L (14-36); Bilirubin,Total 0.8 mg/dl (0.2-1.3); Blood Urea Nitrogen 49 mg/dl (7-17); Carbon Dioxide 12 mmol/L (22.0-30.0); Creatinine Clearance Estimated 17 mL/min (50-200); Creatinine,Serum 3.20 mg/dl (0.52-1.04); Estimated Glomerular Filt Rate 15 ml/min (>60); GFR (African American) 18 ML/MIN (>60); Globulin 3.8 g/dL (1.3-3.2); Total Protein,Serum 8.6 g/dl (6.3-8.2)
[2024-10-05 17:14] LABS: Calcium 9.5 mg/dl (8.4-10.2); Glucose 132 mg/dl (74-100); Lipase 97 U/L (23-300); Magnesium 1.9 mg/dl (1.6-2.3)
[2024-10-05 17:18] LABS: Microscopic, Urine URINE MICROSCOPIC (MICROSCOPIC)
[2024-10-05 17:21] LABS: Bilirubin,Urine Negative (Negative); Color,Urine YELLOW (Yellow); Glucose,Urine (UA) Negative (Negative); Ketones,Urine Negative (Negative); Leukocyte Esterase,Urine 3+ (Negative); PH,Urine 8.5 (5.0-8.5); Protein,Urine 1+ (Negative); Specific Gravity, Urine 1.010 (1.005-1.030); Urobilinogen,Urine 0.2 EU/dl (0.2)
[2024-10-05 17:23] LABS: NT Pro Brain Natriuretic Pep. 4630 pg/mL (0-125)
[2024-10-05 17:26] LABS: Troponin I 0.02 ng/ml (0.00-0.034)
[2024-10-05 17:41] LABS: Amphetamine/Metha Screen,Urine Negative ng/ml (<1000); Benzodiazepines Screen,Urine Negative ng/ml (<200)
[2024-10-05 17:43] LABS: Barbiturates Screen,Urine Negative ng/ml (<200)
[2024-10-05] MEDS: 0.9 % SODIUM CHLORIDE 1000ML 1,000 ML 999 ML IV (17:44)
[2024-10-05 17:45] LABS: Methadone Screen,Urine Negative ng/ml (<300)
[2024-10-05 17:46] LABS: Opiate Screen,Urine Negative ng/ml (<300)
[2024-10-05 17:47] LABS: Phencyclidine Screen,Urine Negative ng/ml (<25)
--- NOTE | 2024-10-05 17:55 | PC.NURSE ---
Notified HS of the need for a bed to admit
[2024-10-05 17:59] LABS: Bacteria,Urine 4+ /lpf; RBC,Urine Occasional #/hpf (0-3); Squamous Epithelial Cell,Urine Occasional #/hpf (0-5); Uric Acid Crystals,Urine Trace /lpf
[2024-10-05 18:16] VITALS: BP 135/80; PULSE 93; RESP 15; TEMP 36.6; O2SAT 99
[2024-10-05 18:44] VITALS: BP 131/64; PULSE 91; RESP 19; TEMP 36.6; O2SAT 93; BMI 23.4
[2024-10-05 19:05] LABS: Creatine Kinase 20 U/L (30-135)
[2024-10-05 19:19] VITALS: BP 117/68; PULSE 86; RESP 16; TEMP 36.5; O2SAT 100
--- NOTE | 2024-10-05 19:29 | P.HP_ITS ---
<Statement entered by Demetri Santoyo MD - 10/07/24 15:40> Personally evaluated patient and agree with the plan of care as outlined by the SENIOR J[employer]EE DEVELOPER. History of Present Illness *Admission Date: 10/05/24 *Reason for visit:: Self-care deficit failure to thrive *History of present illness: Mr. Cronin who has been admitted here for. Has been brought into the hospital by her sister and a well-known friend. The patient lives in a broke down trailer and with a caregiver. But the caregiver was arrested and apparently in the senior living Patient knows she cannot care for herself she is able to get up and at least walk across the room.. Noting about an 18 pound weight loss in the last couple of months. Patient is an everyday smoker pack and a half also marijuana about every other day. She denies any alcohol use. Patient has several scratches to her arms. Is on anticoagulation for a valve replacement. And has dogs in the house probably like to play with her and they ended up scratching her making her upper arms look bad. Family noted that the patient had yeast under her breast and in other skin folds. Talking with the patient she knows who she is where she is and is able to answer her own questions about self-care. She expresses the need to be placed in a long-term care if she is not able to care for herself alone. Patient is very calm at this time but has a history of anxiety hypothyroidism coronary artery disease bladder cancer with urostomy long-term smoker has an AICD implant and has chronic versus acute kidney injury. Left ventricular ejection fraction is about 40% also noted with peripheral vascular disease and carotid bruits. I do agree with the ER provider and after talking with Dr. Keith that the patient will be admitted. To be cared for to evaluate present labs tried to correct the urinary tract infection improved kidney function decrease her creatinine and will probably need at least rehab versus long-term care placement [facility] Disclaimer: The information contained in this section may have been updated after the patient was seen, as this information can be updated by other users. Medical History (Updated 10/05/24 @ 19:48 by Roderick Huddleston APRN) Impaired ambulation Self-care deficit Marijuana smoker Screening for malignant neoplasm Pulmonary embolism on left Smoking greater than 30 pack years Pulmonary emphysema Chronic kidney disease Atrial fibrillation Abnormal echocardiogram Atypical angina Acute respiratory failure with hypoxia Pleural effusion on right Chronic endocarditis Acute on chronic HFrEF (heart failure with reduced ejection fraction) Coronary artery disease Pacemaker at end of battery life Right kidney mass Pancreatic mass Vomiting Dental abscess Pain, dental Hematuria Complication of urostomy Nausea vomiting and diarrhea Hypotension Generalized weakness Hypovolemia E. coli UTI (urinary tract infection) Infection due to extended-spectrum [id number] Klebsiella pneumoniae Yeast infection of the vagina Complicated UTI (urinary tract infection) STACY (acute kidney injury) Septic shock Severe sepsis with acute organ dysfunction Cellulitis Candidiasis Abdominal pannus Nausea & vomiting Presence of urostomy Presence of urostomy Vitamin D deficiency Biventricular cardiac pacemaker in situ Bacterial endocarditis Cardiac arrhythmia Bacteria present Obesity (BMI 30.0-34.9) Gastroenteritis due to norovirus Decreased blood volume Sepsis due to Streptococcus agalactiae Bacteremia Ileostomy in place Pacemaker Bladder cancer Diarrhea Fever UTI (urinary tract infection) Dehydration Diabetes mellitus Renal insufficiency Abscess of skin or subcutaneous tissue Renal insufficiency Valvular heart disease Palpitations Myocardial infarction HTN (hypertension), benign T2DM (type 2 diabetes mellitus) Depression CHF (congestive heart failure) Cancer Arrhythmia Anxiety Encounter for pre-operative cardiovascular clearance PAD (peripheral artery disease) Abnormal ankle brachial index (GOMEZ) PVD (peripheral vascular disease) HHD (hypertensive heart disease) Smoker HLD (hyperlipidemia) Carotid bruit Carotid artery stenosis CAD (coronary artery disease) Surgical History (Updated 10/05/24 @ 19:48 by Roderick Huddleston APRN) History of urostomy Hx of cholecystectomy H/O: hysterectomy Status post mitral valve replacement Hx of tonsillectomy History of mitral valve replacement S/P left atrial appendage ligation AICD (automatic cardioverter/defibrillator) present H/O tricuspid valve replacement History of coronary artery bypass graft Family History Other Cancer Diabetes Heart attack Social History Smoking Status: Current every day smoker tobacco type: cigarettes packs per day: 1 second hand exposure: Yes alcohol intake: never substance use type: marijuana current occupational status: disabled Travel in the last 8 weeks?: None household members: family housing: house number of children: 2 current occupational exposures/hazards: No caffeine: Yes Have you lived/traveled outside [place] in past 30 days?: No Contact w/someone who lives/traveled outside [place] past 30 days?: No Exposure to someone with infectious disease in past 14 days?: No Do you have a fever (greater than 100.4 F or 38 C)?: No Have you tested positive for COVID-19?: No Exposed to someone with COVID-19 in past 14 days?: No Do you have a sore throat?: No Do you have a cough?: No Do you have any weakness?: No Do you have any diarrhea?: No Are you experiencing any unusual bleeding?: No Do you have any muscle aches/pain?: No Do you have any abdominal pain?: No Are you experiencing loss of taste or smell?: No Other Medical History Have you received the Flu Vaccine for this season: No Have you received the Pneumonia Vaccine: Yes Review of Systems Review of Systems Review of systems:: pertinent systems reviewed and negative unless documented below Constitutional Constitutional: Reports as per HPI and Reports weakness Comments: Patient is alert and oriented talking to me very well giving me a good history that correlates with her sisters and her best friend. Eyes Eyes: Reports as per HPI *Cardiovascular Cardiovascular: Reports as per HPI Comments: AICD placement *Respiratory Respiratory: Reports as per HPI Comments: Long-term smoker *Gastrointestinal Gastrointestinal: Reports as per HPI Comments: Urostomy history of bladder cancer *Genitourinary Genitourinary: Reports as per HPI Comments: Urostomy history of bladder cancer *Musculoskeletal Comments: Patient is weak she is able to stand and walk a couple of yards. Integumentary/Breasts Skin/Breast: Reports pruritus and Reports other (Yeast infection in folds of skin) *Neurologic Neurologic: Reports as per HPI and Reports weakness Psychiatric Psychiatric: Reports as per HPI Comments: Patient is very calm and collected at this point in time able to answer questions directly Hematologic/Lymphatic Hematologic/Lymphatic: Reports as per HPI Allergic/Immunologic Allergic/Immunologic: Reports as per HPI Meds Home Medications and Allergies Home Medications ?Medication ?Instructions ?Recorded ?Confirmed ?Type alprazolam 0.5 mg tablet 0.5 mg PO BIDP PRN Anxiety 1 10/05/24 History citalopram 20 mg tablet 20 mg PO HS 12/12/23 08/ 5 History insulin glargine 100 unit/mL (3 8 unit SQ HS 12/12/23 07/02/24 History mL) subcutaneous pen (Lantus Solostar U-100 Insulin) insulin human U-100 NPH-regulr 0 unit SQ BID 12/12/23 07/02/24 History 70-30 mix 100 unit/mL subcutaneous susp (Novolin 70/30 U-100 Insulin) trazodone 50 mg tablet 50 mg PO HS 12/12/2310/05/ 5 History atorvastatin 40 mg tablet 40 mg PO HS 30 days #30 tabs 12/14/23 10/05/24 Rx clopidogrel 75 mg tablet 75 mg PO DAILY 30 days #30 t abs 12/14/23 10/05/24 Rx dapagliflozin propanediol 10 mg 10 mg PO DAILY #30 tab s 01/23/24 10/05/24 Rx tablet (Farxiga) ropinirole 1 mg tablet 1 mg PO DAILY 01/23/2410/05 History amiodarone 200 mg tablet 200 mg PO DAILY 03/15/24 History pantoprazole 40 mg tablet,delayed 40 mg PO HS 30 days #30 tabs 03/20/24 10/05/24 Rx release torsemide 20 mg tablet 20 mg PO DAILY 30 days #30 t abs 03/20/24 10/05/24 Rx albuterol sulfate 2.5 mg/3 mL 2.5 mg inhalation TID VT N SOA 04/22/24 10/05/24 History (0.083 %) solution for nebulization blood sugar diagnostic (True #10 ea 04/22/24 10/05/24 History Metrix Glucose Test Strip) blood-glucose sensor ([facility]1 ea 04/22/24 5 History Sensor device) insulin syringe-needle U-100 1 mL #10 ea 04/22/24/07/05 History 31 gauge x 5/16 insulin lispro 100 unit/mL SQ 07/02/24 07/02/24 Histor y subcutaneous solution levothyroxine 25 mcg tablet 25 mcg PO DAILY 07/02/24 0 10/05/24 History albuterol sulfate 90 mcg/actuation 2 inh inhalation QI D PRN shortness 07/09/24 10/05/24 Rx aerosol inhaler of breath or wheezing 90 day s #8.5 grams apixaban 5 mg tablet (Eliquis) 5 mg PO BID 10/05/24 History cariprazine 1.5 mg capsule 1 mg PO DAILY 10/05/24 08/07/05 History (Vraylar) sacubitril 24 mg-valsartan 26 mg 1 tab PO BID 10/05/24 10/05/24 History tablet (Entresto) New Prescriptions to Start Prescriptions: Allergies Allergy/AdvReac Type Severity Reaction Status Date / Time No Known Allergies Allergy Verified 07/02/24 13:37 Exam Data for Last 24 hours Vital signs and Labs for Last 24 Hours: Temp Pulse Resp BP Pulse Ox O2 Del Method 97.8 F 91 H 19 131/64 93 L Room Air 10/05/24 18:44 10/05/24 18:44 10/05/24 18:44 10/05/24 18:44 10/05/24 18:44 10/05/24 19:00 Laboratory Results - last 24 hr 10/05/24 16:43: WBC 7.5, RBC 4.06 L, Hgb 9.5 L, Hct 31.3 L, MCV 77.1 L, MCH 23.4 L, MCHC 30.4 L, RDW 19.3 H, Plt Count 368, MPV 10.6 H, Neut % (Auto) 76.8, Lymph % (Auto) 16.2, [place] % (Auto) 4.7, Eos % (Auto) 1.5, Baso % (Auto) 0.5, Neut # (Auto) 5.7, Lymph # (Auto) 1.2, [place] # (Auto) 0.4, Eos # (Auto) 0.1, Baso # (Auto) 0.0, Sodium 143, Potassium 3.4 L, Chloride 113 H, Carbon Dioxide 12 L, Anion Gap 21.4 H, BUN 49 H, Creatinine 3.20 H, Estimated Creat Clear 17, Estimated GFR 15 L*, Est GFR ( Amer) 18 L*, Glucose 132 H, Calcium 9.5, Magnesium 1.9, Total Bilirubin 0.8, AST 23, ALT 12, Alkaline Phosphatase 156 H, Total Creatine Kinase 20 L, Troponin I 0.02, NT-Pro-B Natriuret Pep 4630 H, Total Protein 8.6 H, Albumin 4.8, Globulin 3.8 H, Albumin/Globulin Ratio 1.3, Lipase 97 10/05/24 16:57: VBG pH 7.25 L, VBG pCO2 31.2 L, VBG pO2 91.7 H, VBG HCO3 13.3 L, VBG Total CO2 14.2 L, VBG O2 Saturation 95.6 H, VBG Base Excess -14.0 L, VBG Lactic Acid 1.1 10/05/24 17:11: Urine Color Yellow, Urine Appearance Clear, Urine pH 8.5, Ur Specific [place] 1.010, Urine Protein 1+ A, Urine Glucose (UA) Negative, Urine Ketones Negative, Urine Blood Trace-i, Urine Nitrate Negative, Urine Bilirubin Negative, Urine Urobilinogen 0.2, Ur Leukocyte Esterase 3+ A, Urine RBC Occasion al, Urine WBC 10-20, Ur Squamous Epith Cells Occasional, Uric Acid Crystals Trace, Urine Bacteria 4+, Urine Opiates Screen Negative, Urine Methadone Screen Negative, Ur Barbituates Screen Negative, Ur Phencyclidine Scrn Negative, Ur Amphetamines Screen Negative, U Benzodiazepines Scrn Negative, Urine Cocaine Screen Negative, U Marijuana (THC) Screen Positive H I & O for Last 24 hours: Intake & Output 10/03/24 10/04/24 10/05/24 10/06/24 05:59 05:59 05:59 05:59 Output Total 0 / 0 Balance 0 / 0 Weight 124 lb 1 oz Narrative: No imaging done EKG was completed Constitutional Constitutional: no acute distress, obese, chronically ill appearing and cooperative *Routine HEENT Exam Head: Present normocephalic and atraumatic Eye: Present EOMI and PERRL ENT: Present mucous membranes moist and nares patent *Routine Neck Exam Neck: Present supple, full ROM and carotid bruit (History of carotid bruits) Routine Chest/Breast/Axilla Exam Breast: Present rashes (Mild yeast infection) Comments: No tenderness there is a certain amount of rash under the right breast *Routine Respiratory Exam Respiratory: Present decreased breath sounds, normal respiratory effort, able to speak in complete sentences and symmetric chest movement *Routine Cardiovascular Exam Cardiovascular: Present murmur and irregular rhythm Comments: Has pacemaker *Routine Abdominal Exam Abdominal: Present soft, normoactive bowel sounds and obese Comments: Patient has urostomy in place looks to be placed well small amount of urine that is clear *Routine Rectal Exam Rectal:: deferred *Routine Genitalia Exam Genitalia:: deferred *Routine Extremities Exam Extremities: Present full ROM Routine Back/Spine/Pelvis Exam Back/Spine: Present full ROM and muscle spasm *Routine Skin Exam Skin: Present intact and wounds Comments: Multiple skin wounds to the arms and forearms that goes with a history of having dogs that like the plate and scratch lower extremities in fairly good shape no significant breakdown but did note some animal feces at the bottom of the persons foot *Routine Neurological Exam Neurological: Present alert, oriented X3, CN II-XII intact, moving all extremi ties, normal tone and normal speech Comments: Patient is supposed to have mental defects as far as being able to care for self but she was able to answer questions very well showed no neurologic signs of anything that would indicate she has had a recent stroke Routine Psychiatric Exam Psychiatric: Present normal affect, cooperative and good insight H&P: Result Impressions 1. Failure to thrive unable to care for self 2. Cardiovascular disease with AICD implant history of CABG history of valve replaced 3. Urinary tract infection looking back appears to be chronic 4. Diabetes mellitus with hypothyroidism Imaging and Cardiology TESTING: Status: image reviewed by me Additional comments: EKG very variable she has a pacemaker but having PVCs very regular Assessment and Plan *Assessment and plan (1) Failure to thrive: Status: Acute Qualifiers: Failure to thrive age range: in adult Qualified Code(s): R62.7 - Adult failure to thrive Category: Medical (2) Self-care deficit: Status: Acute Category: Medical Code(s): Z78.9 - Other specified health status (3) UTI (urinary tract infection): Status: Acute Qualifiers: Urinary tract infection type: site unspecified Hematuria presence: with hematuria Qualified Code(s): N39.0 - Urinary tract infection, site not specified; R31.9 - Hematuria, unspecified Category: Medical Code(s): N39.0 - Urinary tract infection, site not specified (4) Impaired ambulation: Status: Acute Category: Medical Code(s): R26.2 - Difficulty in walking, not elsewhere classified (5) Chronic anemia: Status: Acute Category: Medical Code(s): D64.9 - Anemia, unspecified (6) Cutaneous candidiasis: Status: Acute Category: Medical Code(s): B37.2 - Candidiasis of skin and nail (7) Smoking greater than 30 pack years: Status: Acute Category: Social Hx Code(s): F17.210 - Nicotine dependence, cigarettes, uncomplicated (8) Acute on chronic kidney failure: Status: Acute Qualifiers: Acute renal failure type: unspecified Chronic kidney disease stage: stage 3 (moderate) Chronic kidney disease stage 3 subtype: unspecified whether 3a or 3b Qualified Code(s): N17.9 - Acute kidney failure, unspecified; N18.30 - Chronic kidney disease, stage 3 unspecified Category: Medical Code(s): N17.9 - Acute kidney failure, unspecified; N18.9 - Chronic kidney disease, unspecified (9) Carotid bruit: Status: Acute Qualifiers: Laterality: bilateral Qualified Code(s): R09.89 - Other specified symptoms and signs involving the circulatory and respiratory systems Category: Medical Code(s): R09.89 - Other specified symptoms and signs involving the circulatory and respiratory systems (10) AICD (automatic cardioverter/defibrillator) present: Status: Chronic Category: Surgical Code(s): Z95.810 - Presence of automatic (implantable) cardiac defibrillator (11) Anxiety: Status: Acute Category: Medical Code(s): F41.9 - Anxiety disorder, unspecified (12) Marijuana smoker: Status: Acute Category: Medical Code(s): F12.90 - Cannabis use, unspecified, uncomplicated (13) Weight loss: Status: Acute Category: Medical Code(s): R63.4 - Abnormal weight loss (14) History of urostomy: Status: Acute Category: Surgical Code(s): Z98.890 - Other specified postprocedural states Plan 1. Patient will be admitted case management will be notified physical therapy and occupational therapy. 2. Will continue to evaluate her diabetes treat that as needed. Continue home medications that are actually beneficial for her 3. Will place a patch on the patient since she is a long-term smoker and have something to help keep her calm as far as anxiety. 4. Will ultimately be looking for either rehabilitation placement or even a long-term care. Since the patient has no place else to go and has no one who can give her 24-hour care
[2024-10-05 19:38] LABS: Hemoglobin A1C 6.7 % (4.0-6.0)
--- NOTE | 2024-10-05 19:48 | PC.NURSE ---
Med rec done based on pre packaged pill pack, patient is unsure of what insulin she takes, states she takes 20 units of this and 20 units of that but cannot confirm what type of insulin. Patient brought in tote full of belongings, cockroach found in the tote while close, ask for family to take belongings back home.
--- NOTE | 2024-10-05 19:58 | PC.NURSE ---
Monikdell Pichardo, sister, [phone]. Patient stated she would like her sister to be contacted for any problems.
[2024-10-05 20:00] VITALS: PULSE 70
[2024-10-05] MEDS: PANTOPRAZOLE 40MG TABLET 40 MG PO (20:10)
[2024-10-05] MEDS: NYSTATIN TOPICAL POWDER 30GM TP (20:10)
[2024-10-05] MEDS: TRAZODONE 50MG TABLET 50 MG PO (20:10)
[2024-10-05] MEDS: PIPERACILLIN/TAZO 3.375 GM in 0.9 % SODIUM CHLORIDE 50 ML IV (20:10)
[2024-10-05 20:21] LABS: Troponin I < 0.01 ng/ml (0.00-0.034)
[2024-10-05 20:56] LABS: POC Glucose,Bedside 111 (70-110)
[2024-10-05 23:19] LABS: Troponin I < 0.01 ng/ml (0.00-0.034)
[2024-10-06] VITALS (7 sets, daily range): BP systolic 110–145; BP diastolic 53–86; PULSE 65–91; RESP 14–19; TEMP 36.4; O2SAT 91–94; BMI 22.6
--- NOTE | 2024-10-06 04:05 | PC.NURSE ---
Admission assessments completed by the charge nurse (Belkis Amato RN) this shift, newly admitted during the previous shift. Patient is alert and oriented x4. She was observed to have both wakeful periods and resting periods (eyes closed, respirations even and unlabored on room air) throughout the night. Yesterday evening, the patient complained of feeling nervous and anxious; one diazepam tablet was administered per MAR for anxiety. Patient was observed to be resting in bed after receiving it; no further complaints of anxiety were made. Other scheduled medications were administered per MAR. Lacerations and bruising noted to bilateral upper extremities, reported dog scratches. Abrasion/bruise noted to right knee from falling at home. Moisture, yeast, and redness noted underneath abdominal pannus and right breast; Nystatin powder was applied to these areas. Urostomy located to right abdominal quadrant; patient empties own urostomy. Urine output has been measured/documented accordingly. Daily weights. Patient has not had a bowel movement thus far this shift, so, an occult blood stool sample remains uncollected. Diminished lung sounds, irregular heart rhythm, active bowels heard. Intermittent loose cough. Intake of fluids encouraged. She ambulates independently with standby assistance as needed in her room/to the bathroom. ACHS glucose checks performed. At this time, the patient is resting in bed without any further complaints. No new needs thus far. Call light within reach.
[2024-10-06] MEDS: PIPERACILLIN/TAZO 3.375 GM in 0.9 % SODIUM CHLORIDE 50 ML IV (04:25)
[2024-10-06 05:29] LABS: POC Glucose,Bedside 127 (70-110)
[2024-10-06 06:38] LABS: Hematocrit 29.6 % (37.0-47.0); Hemoglobin 8.7 g/dL (12.2-16.2); Immature Granulocytes % 0.4 %; Mean Corpuscular HGB Conc 29.4 g/dL (31.8-35.4); Mean Corpuscular Hemoglobin 23.3 pg (27.0-31.2); Mean Corpuscular Volume 79.4 fl (81-99); Nucleated Red Blood Cells % 0 %; Platelet Count 295 K/mm3 (142-424); Red Blood Count 3.73 M/mm3 (4.20-5.40); Red Cell Distribution Width-SD 55.9 fL; White Blood Count 7.6 K/mm3 (4.8-10.8)
[2024-10-06 06:45] LABS: Chloride 115 mmol/L (98-107); Potassium 3.1 mmoL/L (3.5-5.1); Sodium 143 mmol/L (136-145)
[2024-10-06 06:47] LABS: Blood Urea Nitrogen 49 mg/dl (7-17); Creatinine Clearance Estimated 17 mL/min (50-200); Creatinine,Serum 3.00 mg/dl (0.52-1.04); Estimated Glomerular Filt Rate 16 ml/min (>60); GFR (African American) 19 ML/MIN (>60)
[2024-10-06 06:48] LABS: Anion Gap 18.1 mEq/L (5-15); Calcium 8.6 mg/dl (8.4-10.2); Carbon Dioxide 13 mmol/L (22.0-30.0); Cholesterol 105 mg/dl (140-200); Glucose 115 mg/dl (74-100); Magnesium 1.8 mg/dl (1.6-2.3); Triglycerides 100 mg/dl (30-150)
[2024-10-06 06:49] LABS: HDL Cholesterol 37 mg/dl (40-60)
[2024-10-06 07:18] LABS: Thyroid Stimulating Hormone 4.24 uIU/mL (0.465-4.68)
[2024-10-06 07:40] LABS: Hemoglobin A1C 6.6 % (4.0-6.0)
[2024-10-06] MEDS: NYSTATIN TOPICAL POWDER 30GM TP ×2 (08:14→13:22)
[2024-10-06] MEDS: DOCUSATE SODIUM 100 MG CAPSULE PO (08:15)
[2024-10-06] MEDS: POTASSIUM CHLORIDE 20MEQ TAB 40 MEQ PO ×2 (08:15→11:28)
[2024-10-06] MEDS: NICOTINE 21MG/24HR PATCH 21 MG TD (08:19)
--- NOTE | 2024-10-06 09:30 | CARE MANAGER ---
Addendum entered by Anne Reynolds RN 10/06/24 12:45: Patient has been accepted by [facility] for [facility] bed. Will discharge there once medically ready. Original Note: Spoke with patient regarding discharge planning needs. Patient stated that she had been living with a friend, who recently. She is interested in a LTC facility. Verbally consented to placement at any facility.
--- NOTE | 2024-10-06 09:59 | HMH.PTEV ---
Physical Therapy Evaluation Rehab PT IP Evaluation Start: 10/05/24 19:26 Freq: ONCE Status: Active Protocol: Document 10/06/24 09:43 LUIS ALBERTO (Rec: 10/06/24 09:59 LUIS ALBERTO [id number]) Subjective/History History History Per H&P: Mr. Cronin who has been admitted here for . Has been brought into the hospital by her sister and a well-known friend. The patient lives in a broke down trailer and with a caregiver. But the caregiver was arrested and apparently in the halfway Patient knows she cannot care for herself she is able to get up and at least walk across the room.. Noting about an 18 pound weight loss in the last couple of months. Patient is an everyday smoker pack and a half also marijuana about every other day. She denies any alcohol use. Patient has several scratches to her arms . Is on anticoagulation for a valve replacement. And has dogs in the house probably like to play with her and they ended up scratching her making her upper arms look bad. Family noted that the patient had yeast under her breast and in other skin folds. Talking with the patient she knows who she is where she is and is able to answer her own questions about self- care. She expresses the need to be placed in a long- term care if she is not able to care for herself alone. Patient is very calm at this time but has a history of anxiety hypothyroidism coronary artery disease bladder cancer with urostomy long-term smoker has an AICD implant and has chronic versus acute kidney injury . Left ventricular ejection fraction is about 40% also noted with peripheral vascular disease and carotid bruits. I do agree with the ER provider and after talking with Dr. Keith that the patient will be admitted. To be cared for to evaluate present labs tried to correct the urinary tract infection improved kidney function decrease her creatinine and will probably need at least rehab versus long-term care placement Subjective Subjective Pt reports she is usually IND with mobility but intermittently needs assistance to ambulate. Pt does not use a RW. Pt reports her living situation is a long story. Pt reports as of right now she would be living alone. Pt not able to provide much info on where she lives. Pt reports it's a house with 2 WILLIAM. New diagnosis of No cancer in past 12 months? [facility] How much help from another person do you currently need... Turning from your None back to your side while in a flat bed without using bedrails? Moving from lying on None back to sitting on the side of a flat bed without using bedrails? Moving to and from a None bed to a chair ( including a wheelchair)? Standing up from a None chair using your arms? (e.g., wheelchair, bedside chair) Walking in hospital None room? Climbing 3-5 steps A little with a railing? Mobility Score 23 Mobility Level [facility] Mobility 7 Walk 25 feet or more Mobility Calculator Rehab PT IP Eval Objective Appearance Patient Behavior Appropriate,Cooperative Patient Orientation Person,Place Difficulty following none instructions Speech Pattern Clear Ambulation Patient Able to Yes Ambulate Ambulation Observation IP General Gait Wide Based Gait Pattern Observation Ambulation Distance 25 (feet) Ambulation Assistive None Device Ambulation Ability Supervision/Stand by Balance Ability to Arise Able, uses arms to help Sitting Balance Steady, safe Standing Balance Steady, wide stance Dynamic Sitting Good Balance Ability Dynamic Standing Good Balance Ability Transfers Bed Transfer Ability Independent Chair Transfer Independent Ability Sit to Stand Bed Independent Transfer Ability Rehab PT IP prob,goals,plan Problems Date of Evaluation: 10/06/24 PT IP Problems Other Other Pt Problem Impaired gait speed and stride Rehab Potential Rehab Potential Innapropriate for Skilled Therapy Discharge Plan PT Discharge Plan Pt able to demo IND household level ambulation without LOB and with no AD. Pt not appropriate for skilled acute care PT at this time d/t being IND with mobility. PT recommending d/c home when medically necessary with services to address endurance and general strength. PT recommending pt use RW for community ambulation to maximize safety and improve endurance. Eval Complexity Eval Charge Codes 87258 - Moderate Complexity PHYSICIAN CERTIFICATION: I certify the specified therapy services for Laxmi Cronin are required, authorized, and reviewed every 30 days.
--- NOTE | 2024-10-06 10:49 | HMH.OTEV ---
OT Inpatient Evaluation Rehab OT IP Evaluation Start: 10/05/24 19:26 Freq: ONCE Status: Active Protocol: Document 10/06/24 10:42 ROMY (Rec: 10/06/24 10:48 ROMY [id number]) Rehab OT IP Assessment Subjective History PER History of present illness: Pt Has been brought into the hospital by her sister and a well-known friend. The patient lives in a broke down trailer and with a caregiver. But the caregiver was arrested and apparently in the nursing home Patient knows she cannot care for herself she is able to get up and at least walk across the room.. Noting about an 18 pound weight loss in the last couple of months. Patient is an everyday smoker pack and a half also marijuana about every other day. She denies any alcohol use. Patient has several scratches to her arms . Is on anticoagulation for a valve replacement. And has dogs in the house probably like to play with her and they ended up scratching her making her upper arms look bad. Family noted that the patient had yeast under her breast and in other skin folds. Talking with the patient she knows who she is where she is and is able to answer her own questions about self- care. She expresses the need to be placed in a long- term care if she is not able to care for herself alone. Patient is very calm at this time but has a history of anxiety hypothyroidism coronary artery disease bladder cancer with urostomy long-term smoker has an AICD implant and has chronic versus acute kidney injury . Left ventricular ejection fraction is about 40% also noted with peripheral vascular disease and carotid bruits. I do agree with the ER provider and after talking with Dr. Keith that the patient will be admitted. To be cared for to evaluate present labs tried to correct the urinary tract infection improved kidney function decrease her creatinine and will probably need at least rehab versus long-term care placement Subjective I do not know. Pt was supine in bed when therapy entered room. Pt orient x3. pt agreed to initial OT eval this AM. Pt reported they live with mx people randomly. Pt reports they live in a house with couple steps. pt reports they are ind in ADLs and IADLs. Pt reports they do not drive and do not know how they get to apts, typically a friend has helped before. Pt reported ind inf FM, then countered they do need assist at times. Pt reports they have had 2 falls in past month. Pt went from supine to EOB Ind. Pt then completed FM task of aprox 15 ft ind. Pt then sat back on EOB and scooted to middle of bed ind. Pt left sitting in bed with call light and all other needs within reach. Objective Patient Orientation Person,Place,Birthday Right Upper WFL Extremity Gross ROM Left Upper Extremity WFL Gross ROM Bed Mobility bed mobility-scooting,bed mobility - supine/sit Assist Level Independent Transfer Training Sit/Stand Transfer Assist Level Independent Chair Transfer Sit to/from Ambulatory Technique Decrease in No Endurance Rehab OT IP prob,goals,plan Problems Date of Evaluation: 10/06/24 Rehab Potential Rehab Potential Innapropriate for Skilled Therapy Discharge Plan OT Discharge Plan Pt able to demo IND household level FM and endurance without any assist. Pt not appropriate for skilled acute care OT at this time d/t being IND with FM and transfers. OT recommending d/c home when medically necessary with HH services to address endurance and general strength. Pt could benefit from shower chair and grab bars to improve ind in ADLs. Eval Complexity Eval Charge Codes 89624 - Moderate Complexity PHYSICIAN CERTIFICATION: I certify the specified therapy services for Laxmi Cronin are required, authorized, and reviewed every 30 days.
--- NOTE | 2024-10-06 13:09 | EXP.DC.SUM ---
General Admission date:: 10/05/24 HPI HPI HPI: Mr. Cronin who has been admitted here for. Has been brought into the hospital by her sister and a well-known friend. The patient lives in a broke down trailer and with a caregiver. But the caregiver was arrested and apparently in the [facility] Patient knows she cannot care for herself she is able to get up and at least walk across the room.. Noting about an 18 pound weight loss in the last couple of months. Patient is an everyday smoker pack and a half also marijuana about every other day. She denies any alcohol use. Patient has several scratches to her arms. Is on anticoagulation for a valve replacement. And has dogs in the house probably like to play with her and they ended up scratching her making her upper arms look bad. Family noted that the patient had yeast under her breast and in other skin folds. Talking with the patient she knows who she is where she is and is able to answer her own questions about self-care. She expresses the need to be placed in a long-term care if she is not able to care for herself alone. Patient is very calm at this time but has a history of anxiety hypothyroidism coronary artery disease bladder cancer with urostomy long-term smoker has an AICD implant and has chronic versus acute kidney injury. Left ventricular ejection fraction is about 40% also noted with peripheral vascular disease and carotid bruits. I do agree with the ER provider and after talking with Dr. Keith that the patient will be admitted. To be cared for to evaluate present labs tried to correct the urinary tract infection improved kidney function decrease her creatinine and will probably need at least rehab versus long-term care placement Hospital Course Hospital Course Hospital Course: Laxmi Cronin is a 64-year-old female who presented for failure to thrive and was admitted for the same, STACY. #Dehydration #High anion gap metabolic acidosis #STACY on CKD 3B ? Initial creatinine 3.2, baseline 2.0. Improved with IV fluid resuscitation. Patient tolerating p.o. intake, ambulating without issues. ? AGAP, metabolic acidosis also improved with fluids. ? Hold home Entresto, torsemide, due to renal insufficiency. Follow-up BMP in 3 days to reevaluate restarting these medications. #UTI ? Treated with IV ceftriaxone, transitioned to levofloxacin 500 mg every 48 hours for 2 more doses. #Failure to thrive ? 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 ? Patient has been graciously accepted to [facility] for long-term care. Will be transferred in stable condition. #Type 2 diabetes ? Hemoglobin A1c 6.6%. Discontinued Farxiga due to recurrent UTIs, Ativan CKD. ? Started Lantus 10 units, continue sliding scale insulin ACHS. #CAD #History of STEMI ? Continue home Plavix 75 mg, atorvastatin 40 mg. #HFpEF ? Hold home torsemide 20 mg until repeat BMP in 3 days. #A-fib ? Continue home amiodarone, Eliquis. #Anxiety/depression ? Continue home citalopram, Vraylar, trazodone. Total time spent on discharge: 31 minutes on chart review, counseling, documentation, and direct care with patient. Exam Data for Last 24 hours Vital signs and Labs for Last 24 Hours: Temp Pulse Resp BP Pulse Ox O2 Del Method 97.5 F L 89 17 122/56 L 94 L Room Air 10/06/24 12:00 10/06/24 12:00 10/06/24 12:00 10/06/24 12:00 10/06/24 12:00 10/06/24 12:00 Laboratory Results - last 24 hr 10/05/24 16:43: WBC 7.5, RBC 4.06 L, Hgb 9.5 L, Hct 31.3 L, MCV 77.1 L, MCH 23.4 L, MCHC 30.4 L, RDW 19.3 H, Plt Count 368, MPV 10.6 H, Neut % (Auto) 76.8, Lymph % (Auto) 16.2, [place] % (Auto) 4.7, Eos % (Auto) 1.5, Baso % (Auto) 0.5, Neut # (Auto) 5.7, Lymph # (Auto) 1.2, [place] # (Auto) 0.4, Eos # (Auto) 0.1, Baso # (Auto) 0.0, Sodium 143, Potassium 3.4 L, Chloride 113 H, Carbon Dioxide 12 L, Anion Gap 21.4 H, BUN 49 H, Creatinine 3.20 H, Estimated Creat Clear 17, Estimated GFR 15 L*, Est GFR ( Amer) 18 L*, Glucose 132 H, Hemoglobin A1c 6.7 H, Calcium 9.5, Magnesium 1.9, Total Bilirubin 0.8, AST 23, ALT 12, Alkaline Phosphatase 156 H, Total Creatine Kinase 20 L, Troponin I 0.02, NT-Pro-B Natriuret Pep 4630 H, Total Protein 8.6 H, Albumin 4.8, Globulin 3.8 H, Albumin/Globulin Ratio 1.3, Lipase 97 10/05/24 16:57: VBG pH 7.25 L, VBG pCO2 31.2 L, VBG pO2 91.7 H, VBG HCO3 13.3 L, VBG Total CO2 14.2 L, VBG O2 Saturation 95.6 H, VBG Base Excess -14.0 L, VBG Lactic Acid 1.1 10/05/24 17:11: Urine Color Yellow, Urine Appearance Clear, Urine pH 8.5, Ur Specific [place] 1.010, Urine Protein 1+ A, Urine Glucose (UA) Negative, Urine Ketones Negative, Urine Blood Trace-i, Urine Nitrate Negative, Urine Bilirubin Negative, Urine Urobilinogen 0.2, Ur Leukocyte Esterase 3+ A, Urine RBC Occasional, Urine WBC 10-20, Ur Squamous Epith Cells Occasional, Uric Acid Crystals Trace, Urine Bacteria 4+, Urine Opiates Screen Negative, Urine Methadone Screen Negative, Ur Barbituates Screen Negative, Ur Phencyclidine Scrn Negative, Ur Amphetamines Screen Negative, U Benzodiazepines Scrn Negative, Urine Cocaine Screen Negative, U Marijuana (THC) Screen Positive H 10/05/24 19:27: Lactate 1.0, Troponin I < 0.01 10/05/24 20:16: POC Glucose 111 H 10/05/24 22:37: Troponin I < 0.01 10/06/24 05:06: POC Glucose 127 H 10/06/24 06:13: Hemoglobin A1c 6.6 H 10/06/24 06:23: WBC 7.6, RBC 3.73 L, Hgb 8.7 L, Hct 29.6 L, MCV 79.4 L, MCH 23.3 L, MCHC 29.4 L, RDW 19.5 H, Plt Count 295, MPV 10.4, Neut % (Auto) 74.8, Lymph % (Auto) 17.4, [place] % (Auto) 5.1, Eos % (Auto) 1.6, Baso % (Auto) 0.7, Neut # (Auto) 5.7, Lymph # (Auto) 1.3, [place] # (Auto) 0.4, Eos # (Auto) 0.1, Baso # (Auto) 0.1, Sodium 143, Potassium 3.1 L, Chloride 115 H, Carbon Dioxide 13 L, Anion Gap 18.1 H, BUN 49 H, Creatinine 3.00 H, Estimated Creat Clear 17, Estimated GFR 16 L*, Est GFR ( Amer) 19 L*, Glucose 115 H, Calcium 8.6, Magnesium 1.8, Triglycerides 100, Cholesterol 105 L, LDL Cholesterol Direct 44.47 L, VLDL Cholesterol 20, HDL Cholesterol 37 L, Cholesterol/HDL Ratio 2.8, TSH 4.24 I & O for Last 24 hours: Intake & Output 10/03/24 10/04/24 10/05/24 10/06/24 23:59 23:59 23:59 23:59 Intake Total 1050 / 1400 1435 / 1435 Output Total 0 / 0 1150 / 1150 Balance 1050 / 1400 285 / 285 Weight 56.274 kg 54.431 kg Constitutional Constitutional: no acute distress and chronically ill appearing *Routine HEENT Exam Head: Present normocephalic Eye: Present EOMI and PERRL ENT: Present mucous membranes moist *Routine Neck Exam Neck: Present supple; Absent lymphadenopathy *Routine Respiratory Exam Respiratory: Present CTA bilaterally *Routine Cardiovascular Exam Cardiovascular: Present RRR *Routine Abdominal Exam Abdominal: Present soft and normoactive bowel sounds; Absent tenderness *Routine Extremities Exam Extremities: Absent cyanosis, clubbing or edema *Routine Skin Exam Skin: Present warm; Absent rash *Routine Neurological Exam Neurological: Present alert Results Data Completed and Pending Labs on day of discharge: Labs from last 24 hours 10/06/24 10/06/24 10/06/24 06:23 06:13 05:06 WBC 7.6 RBC 3.73 L Hgb 8.7 L Hct 29.6 L MCV 79.4 L MCH 23.3 L MCHC 29.4 L RDW 19.5 H Plt Count 295 MPV 10.4 Neut % (Auto) 74.8 Lymph % (Auto) 17.4 [place] % (Auto) 5.1 Eos % (Auto) 1.6 Baso % (Auto) 0.7 Neut # (Auto) 5.7 Lymph # (Auto) 1.3 [place] # (Auto) 0.4 Eos # (Auto) 0.1 Baso # (Auto) 0.1 VBG pH VBG pCO2 VBG pO2 VBG HCO3 VBG Total CO2 VBG O2 Saturation VBG Base Excess VBG Lactic Acid Sodium 143 Potassium 3.1 L Chloride 115 H Carbon Dioxide 13 L Anion Gap 18.1 H BUN 49 H Creatinine 3.00 H Estimated Creat Clear 17 Estimated GFR 16 L* Est GFR ( Amer) 19 L* Glucose 115 H POC Glucose 127 H Hemoglobin A1c 6.6 H Lactate Calcium 8.6 Magnesium 1.8 Total Bilirubin AST ALT Alkaline Phosphatase Total Creatine Kinase Troponin I NT-Pro-B Natriuret Pep Total Protein Albumin Globulin Albumin/Globulin Ratio Triglycerides 100 Cholesterol 105 L LDL Cholesterol Direct 44.47 L VLDL Cholesterol 20 HDL Cholesterol 37 L Cholesterol/HDL Ratio 2.8 Lipase TSH 4.24 Urine Color Urine Appearance Urine pH Ur Specific [place] Urine Protein Urine Glucose (UA) Urine Ketones Urine Blood Urine Nitrate Urine Bilirubin Urine Urobilinogen Ur Leukocyte Esterase Urine RBC Urine WBC Ur Squamous Epith Cells Uric Acid Crystals Urine Bacteria Urine Opiates Screen Urine Methadone Screen Ur Barbituates Screen Ur Phencyclidine Scrn Ur Amphetamines Screen U Benzodiazepines Scrn Urine Cocaine Screen U Marijuana (THC) Screen 10/05/24 10/05/24 10/05/24 22:37 20:16 19:27 WBC RBC Hgb Hct MCV MCH MCHC RDW Plt Count MPV Neut % (Auto) Lymph % (Auto) [place] % (Auto) Eos % (Auto) Baso % (Auto) Neut # (Auto) Lymph # (Auto) [place] # (Auto) Eos # (Auto) Baso # (Auto) VBG pH VBG pCO2 VBG pO2 VBG HCO3 VBG Total CO2 VBG O2 Saturation VBG Base Excess VBG Lactic Acid Sodium Potassium Chloride Carbon Dioxide Anion Gap BUN Creatinine Estimated Creat Clear Estimated GFR Est GFR ( Amer) Glucose POC Glucose 111 H Hemoglobin A1c Lactate 1.0 Calcium Magnesium Total Bilirubin AST ALT Alkaline Phosphatase Total Creatine Kinase Troponin I < 0.01 < 0.01 NT-Pro-B Natriuret Pep Total Protein Albumin Globulin Albumin/Globulin Ratio Triglycerides Cholesterol LDL Cholesterol Direct VLDL Cholesterol HDL Cholesterol Cholesterol/HDL Ratio Lipase TSH Urine Color Urine Appearance Urine pH Ur Specific [place] Urine Protein Urine Glucose (UA) Urine Ketones Urine Blood Urine Nitrate Urine Bilirubin Urine Urobilinogen Ur Leukocyte Esterase Urine RBC Urine WBC Ur Squamous Epith Cells Uric Acid Crystals Urine Bacteria Urine Opiates Screen Urine Methadone Screen Ur Barbituates Screen Ur Phencyclidine Scrn Ur Amphetamines Screen U Benzodiazepines Scrn Urine Cocaine Screen U Marijuana (THC) Screen 10/05/24 10/05/24 10/05/24 17:11 16:57 16:43 WBC 7.5 RBC 4.06 L Hgb 9.5 L Hct 31.3 L MCV 77.1 L MCH 23.4 L MCHC 30.4 L RDW 19.3 H Plt Count 368 MPV 10.6 H Neut % (Auto) 76.8 Lymph % (Auto) 16.2 [place] % (Auto) 4.7 Eos % (Auto) 1.5 Baso % (Auto) 0.5 Neut # (Auto) 5.7 Lymph # (Auto) 1.2 [place] # (Auto) 0.4 Eos # (Auto) 0.1 Baso # (Auto) 0.0 VBG pH 7.25 L VBG pCO2 31.2 L VBG pO2 91.7 H VBG HCO3 13.3 L VBG Total CO2 14.2 L VBG O2 Saturation 95.6 H VBG Base Excess -14.0 L VBG Lactic Acid 1.1 Sodium 143 Potassium 3.4 L Chloride 113 H Carbon Dioxide 12 L Anion Gap 21.4 H BUN 49 H Creatinine 3.20 H Estimated Creat Clear 17 Estimated GFR 15 L* Est GFR ( Amer) 18 L* Glucose 132 H POC Glucose Hemoglobin A1c 6.7 H Lactate Calcium 9.5 Magnesium 1.9 Total Bilirubin 0.8 AST 23 ALT 12 Alkaline Phosphatase 156 H Total Creatine Kinase 20 L Troponin I 0.02 NT-Pro-B Natriuret Pep 4630 H Total Protein 8.6 H Albumin 4.8 Globulin 3.8 H Albumin/Globulin Ratio 1.3 Triglycerides Cholesterol LDL Cholesterol Direct VLDL Cholesterol HDL Cholesterol Cholesterol/HDL Ratio Lipase 97 TSH Urine Color Yellow Urine Appearance Clear Urine pH 8.5 Ur Specific [place] 1.010 Urine Protein 1+ A Urine Glucose (UA) Negative Urine Ketones Negative Urine Blood Trace-i Urine Nitrate Negative Urine Bilirubin Negative Urine Urobilinogen 0.2 Ur Leukocyte Esterase 3+ A Urine RBC Occasional Urine WBC 10-20 Ur Squamous Epith Cells Occasional Uric Acid Crystals Trace Urine Bacteria 4+ Urine Opiates Screen Negative Urine Methadone Screen Negative Ur Barbituates Screen Negative Ur Phencyclidine Scrn Negative Ur Amphetamines Screen Negative U Benzodiazepines Scrn Negative Urine Cocaine Screen Negative U Marijuana (THC) Screen Positive H DS: Diagnosis Discharge Diagnosis (1) Failure to thrive: Status: Acute Qualifiers: Failure to thrive age range: in adult Qualified Code(s): R62.7 - Adult failure to thrive (2) Self-care deficit: Status: Acute Code(s): Z78.9 - Other specified health status (3) UTI (urinary tract infection): Status: Acute Code(s): N39.0 - Urinary tract infection, site not specified Qualifiers: Hematuria presence: with hematuria Urinary tract infection type: site unspecified Qualified Code(s): N39.0 - Urinary tract infection, site not specified; R31.9 - Hematuria, unspecified (4) Impaired ambulation: Status: Acute Code(s): R26.2 - Difficulty in walking, not elsewhere classified (5) Chronic anemia: Status: Acute Code(s): D64.9 - Anemia, unspecified (6) Cutaneous candidiasis: Status: Acute Code(s): B37.2 - Candidiasis of skin and nail (7) Smoking greater than 30 pack years: Status: Acute Code(s): F17.210 - Nicotine dependence, cigarettes, uncomplicated (8) Acute on chronic kidney failure: Status: Acute Code(s): N17.9 - Acute kidney failure, unspecified; N18.9 - Chronic kidney disease, unspecified Qualifiers: Acute renal failure type: unspecified Chronic kidney disease stage: stage 3 (moderate) Chronic kidney disease stage 3 subtype: unspecified whether 3a or 3b Qualified Code(s): N17.9 - Acute kidney failure, unspecified; N18.30 - Chronic kidney disease, stage 3 unspecified (9) Carotid bruit: Status: Acute Code(s): R09.89 - Other specified symptoms and signs involving the circulatory and respiratory systems Qualifiers: Laterality: bilateral Qualified Code(s): R09.89 - Other specified symptoms and signs involving the circulatory and respiratory systems (10) AICD (automatic cardioverter/defibrillator) present: Status: Chronic Code(s): Z95.810 - Presence of automatic (implantable) cardiac defibrillator (11) Anxiety: Status: Acute Code(s): F41.9 - Anxiety disorder, unspecified (12) Marijuana smoker: Status: Acute Code(s): F12.90 - Cannabis use, unspecified, uncomplicated (13) Weight loss: Status: Acute Code(s): R63.4 - Abnormal weight loss (14) History of urostomy: Status: Acute Code(s): Z98.890 - Other specified postprocedural states Meds Home Medications and Allergies Home Medications ?Medication ?Instructions ?Recorded ?Confirmed ?Type alprazolam 0.5 mg tablet 0.5 mg PO BIDP PRN Anxiety 12/12/23 10/05/24 History citalopram 20 mg tablet 20 mg PO HS 12/12/23 10/05/24 History trazodone 50 mg tablet 50 mg PO HSP PRN Sleep 12/12/23 10/06/24 History atorvastatin 40 mg tablet 40 mg PO HS 30 days #30 tabs 12/14/23 10/05/24 Rx clopidogrel 75 mg tablet 75 mg PO DAILY 30 days #30 tabs 12/14/23 10/05/24 Rx ropinirole 1 mg tablet 1 mg PO HS 01/23/24 10/06/24 History amiodarone 200 mg tablet 400 mg PO DAILY 03/15/24 10/06/24 History pantoprazole 40 mg tablet,delayed 40 mg PO HS 30 days #30 tabs 03/20/24 10/05/24 Rx release torsemide 20 mg tablet 20 mg PO DAILY 30 days #30 tabs 03/20/24 10/05/24 Rx Held on 10/06/24. Instructions: Resume on 10/09/24. Acute kidney injury. blood sugar diagnostic (True #10 ea 04/22/24 10/05/24 History Metrix Glucose Test Strip) blood-glucose sensor (Dexcom G7 #1 ea 04/22/24 10/05/24 History Sensor device) insulin syringe-needle U-100 1 mL #10 ea 04/22/24 10/05/24 History 31 gauge x 5/16 insulin lispro 100 unit/mL 0 unit SQ DIRECTED INSULIN PUMP 07/02/24 10/06/24 History subcutaneous solution levothyroxine 25 mcg tablet 25 mcg PO DAILY 07/02/24 10/05/24 History albuterol sulfate 90 mcg/actuation 2 inh inhalation QID PRN shortness 07/09/24 10/05/24 Rx aerosol inhaler of breath or wheezing 90 days #8.5 grams apixaban 5 mg tablet (Eliquis) 5 mg PO BID 10/05/24 10/05/24 History cariprazine 1.5 mg capsule 1.5 mg PO DAILY 10/05/24 10/06/24 History (Vraylar) sacubitril 24 mg-valsartan 26 mg 1 tab PO BID 10/05/24 10/05/24 History tablet (Entresto) Held on 10/06/24. Instructions: Resume on 10/09/24. Acute kidney injury. insulin glargine 100 unit/mL (3 10 unit (0.1 mL) SQ HS #3 mL 10/06/24 Rx mL) subcutaneous pen (Lantus Solostar U-100 Insulin) levofloxacin 500 mg tablet 500 mg PO Q48H 4 days #2 tabs 10/06/24 Rx New Prescriptions to Start Prescriptions: insulin glargine [Lantus Solostar U-100 Insulin] Demetri Santoyo levofloxacin Demetri Santoyo Allergies Allergy/AdvReac Type Severity Reaction Status Date / Time No Known Allergies Allergy Verified 07/02/24 13:37 Discharge Plan Disposition Patient Disposition: [facility] Condition: Fair Discharge Order Discharge Orders: Discharge Order (Routine); Ordered 10/06/24 Ordered By: Demetri Santoyo Follow up Plan Prescriptions/Medication Reconciliation: New levofloxacin 500 mg tablet 500 mg PO Q48H 4 Days Qty: 2 0RF insulin glargine [Lantus Solostar U-100 Insulin] 100 unit/mL (3 mL) insulin pen 10 unit SQ HS Qty: 3 0RF Continued (DME) True Metrix Glucose Test Strip Strip See Rx Instructions .ROUTE .MEDSUPPLY Qty: 10 Rx Instructions: As directed (DME) insulin syringe-needle U-100 1 mL 31 gauge x 5/16 syringe See Rx Instructions .ROUTE .MEDSUPPLY Qty: 10 Rx Instructions: As directed (DME) Dexcom G7 Sensor Device See Rx Instructions .ROUTE .MEDSUPPLY Qty: 1 Patient Comments: USE DIRECTED CHANGING EVERY 10 DAYS Rx Instructions: As directed levothyroxine 25 mcg tablet 25 mcg PO DAILY insulin lispro 100 unit/mL solution 0 unit SQ DIRECTED ropinirole 1 mg tablet 1 mg PO HS albuterol sulfate 90 mcg/actuation HFA aerosol inhaler 2 inh inhalation QID PRN (Reason: shortness of breath or wheezing) 90 Days Qty: 8.5 2RF trazodone 50 mg tablet 50 mg PO HSP PRN (Reason: Sleep) alprazolam 0.5 mg tablet 0.5 mg PO BIDP PRN (Reason: Anxiety) citalopram 20 mg tablet 20 mg PO HS atorvastatin 40 mg Tablet 40 mg PO HS 30 Days Qty: 30 0RF clopidogrel 75 mg tablet 75 mg PO DAILY 30 Days Qty: 30 0RF Patient Comments: TAKE ONE TABLET BY MOUTH ONCE A DAY amiodarone 200 mg tablet 400 mg PO DAILY pantoprazole 40 mg Tablet,Delayed Release (Dr/Ec) 40 mg PO HS 30 Days Qty: 30 0RF Vraylar 1.5 mg capsule 1.5 mg PO DAILY Patient Comments: TAKE 1 CAPSULE BY MOUTH ONCE A DAY Eliquis 5 mg tablet 5 mg PO BID Held torsemide 20 mg Tablet 20 mg PO DAILY 30 Days Qty: 30 0RF Hold Instructions: Resume on 10/09/24. Acute kidney injury. sacubitril-valsartan [Entresto] 24-26 mg tablet 1 tab PO BID Hold Instructions: Resume on 10/09/24. Acute kidney injury. Patient Comments: TAKE 1 TABLET BY MOUTH 2 TIMES A DAY Discontinued dapagliflozin propanediol [Farxiga] 10 mg tablet 10 mg PO DAILY Qty: 30 2RF Problem Reconciliation Problems Reviewed?: Yes Patient Discharge Instructions Patient Instructions: DI for Kidney Failure, DI for Urinary Tract Infection (UTI), Xkybxnb-[id number]-Emoxfx-Adult, Stop Light Infection Print Language: Arabic Providers Primary Care Provider: Ivonne Jones Admit Provider: Demetri Santoyo Attending Provider: Demetri Santoyo
[2024-10-06 13:21] LABS: POC Glucose,Bedside 152 (70-110)
[2024-10-06] MEDS: PIPERACILLIN/TAZO 2.25 GM in 0.9 % SODIUM CHLORIDE 50 ML IV (13:24)
--- NOTE | 2024-10-06 14:15 | PC.NURSE ---
called report to [facility]. called bert with peer support to get pt clean clothes. notified pts sister audrey amos about pts dc. will call [facility] for transport
== END 2024-10-06 14:53 ==
LOC: ER 16:06 → 2ND 18:19
PROVIDERS: Nurse Practitioner Family; Physician Assistant; Admitting Provider Student in an Organized Health Care Education/Training Program; Emergency Provider Student in an Organized Health Care Education/Training Program; PCP Nurse Practitioner Family; Visit Provider Student in an Organized Health Care Education/Training Program
DX: R62.7 Adult failure to thrive (principal); N39.0 Urinary tract infection, site not specified; B37.2 Candidiasis of skin and nail; I13.0 Hypertensive heart and chronic kidney disease with heart failure and stage 1 through stage 4 chronic kidney disease, or unspecified chronic kidney disease; R09.89 Other specified symptoms and signs involving the circulatory and respiratory systems; F17.210 Nicotine dependence, cigarettes, uncomplicated; F41.9 Anxiety disorder, unspecified; F12.90 Cannabis use, unspecified, uncomplicated; I48.91 Unspecified atrial fibrillation; J43.9 Emphysema, unspecified; I25.118 Atherosclerotic heart disease of native coronary artery with other forms of angina pectoris; E11.22 Type 2 diabetes mellitus with diabetic chronic kidney disease; E11.51 Type 2 diabetes mellitus with diabetic peripheral angiopathy without gangrene; F32.A Depression, unspecified; D63.1 Anemia in chronic kidney disease; N17.9 Acute kidney failure, unspecified; E78.5 Hyperlipidemia, unspecified; E66.9 Obesity, unspecified; E03.9 Hypothyroidism, unspecified; E86.0 Dehydration; I25.2 Old myocardial infarction; N18.32 Chronic kidney disease, stage 3b; E87.20 Acidosis, unspecified; K21.9 Gastro-esophageal reflux disease without esophagitis; G25.81 Restless legs syndrome; I50.42 Chronic combined systolic (congestive) and diastolic (congestive) heart failure; Z68.22 Body mass index [BMI] 22.0-22.9, adult; Z86.711 Personal history of pulmonary embolism; Z95.5 Presence of coronary angioplasty implant and graft; Z85.51 Personal history of malignant neoplasm of bladder; Z95.810 Presence of automatic (implantable) cardiac defibrillator; Z95.4 Presence of other heart-valve replacement; Z95.1 Presence of aortocoronary bypass graft; Z98.890 Other specified postprocedural states; Z78.9 Other specified health status; Z79.890 Hormone replacement therapy; Z79.4 Long term (current) use of insulin; Z79.01 Long term (current) use of anticoagulants; Z79.02 Long term (current) use of antithrombotics/antiplatelets; Z79.899 Other long term (current) drug therapy
CPT/HCPCS: 36415; 80048; 80053; 80061; 80307; 81001; 82550; 82803; 82962; 83036; 83605; 83690; 83735; 83880; 84443; 84484; 85025; 87086; 93005; 96361; 96365; 96366; 96372; 97162; 97166; 99283; G0378; J1650; J2543; J7030

== ENCOUNTER 2024-10-12 19:29 | Emergency (ER) | payer MEDICARE, SELFPAY ==
--- OUTSIDE RECORDS SUMMARY | 2018-07-11 08:18 | XMS_ITS | Continuity of Care Document ---
Author Organization [address] [place] [id number] [place] [address] [address] [place] [address] Phone Care Team Providers Care Lottery Office Manager Name Role Phone Monae Best NP Unavailable Maricarmen vailable Allergies, Adverse Reactions, Alerts Substance Reaction Status Criticality No Known Allergies Active No Inform ation Medications Medication Instructions Dosage Effective Dates (start - stop) Status Comments carvedilol 6.25 mg tablet - Active clopidogrel 75 mg tablet - A ctive levothyroxine 25 mcg tablet - Active Novolin 70/30 U-100 Insulin 100 unit/mL subcutaneous suspension - Active pravastatin 20 mg tablet - A ctive atorvastatin 40 mg tablet - Active alprazolam 0.5 mg tablet - A ctive diltiazem CD 120 mg capsule,extended release 24 hr - Active gabapentin 300 mg capsule - Active lisinopril 2.5 mg tablet - A ctive zolpidem 5 mg tablet - Activ e penicillin V potassium 250 mg tablet - Active Easy Touch Insulin Syringe 0.5 mL 31 gauge x 06/26 - Active diltiazem ER (XR/XT) 120 mg capsule,extended release 24 hr, controlled - Active ceftriaxone 2 gram/50 mL in dextrose (iso-osm) intravenous piggyback - Active Monoject Insulin Safety Syringe 29 gauge x 02/12 - Active carvedilol 3.125 mg tablet - Active citalopram 20 mg tablet - Ac tive furosemide 20 mg tablet - Ac tive potassium chloride ER 10 mEq tablet,extended release(part/cryst) - Active Advance Directives Directive Yes / No Effective Date File Name Life Support Not Answered N/A N/A Other Directive No N/A N/A WARNING:The information contained in this section is historical and is provided for information only and does not constitute a legal document or any assurance that the information is still accurate. Please verify the information with the aguilera of the legal document before using it for clinical purposes. Encounters Encounter Description Practice Location Reason(s) For Visit Diagnoses Date Provider Providers Copied on Encounter [address] [place] [address], [address], [place], [place], [id number], [place] tel:[phone] [place] No Information [address] sa[address] [place]. [address] [facility], [address], [place], [address], [place]. Family History Family Member Type Diagnosis Age At Onset No Information Payers Payer name Insurance type Covered green party ID Authoriza tion(s) No Information Social History Type Description Quantity Date Captured Comments Alcohol Use Details Unknown Caffeine Use Details Unknown Tobacco Use Status No Information Smoking Status No Information Sex Female Chief Complaint And Reason For Visit No Information Reason For Referral Reason For Referral No Information History Of Present Illness Encounter Date Complaint History Of Prese nt Illness No Information Functional Status Date Functional Assessmen t No Information Instructions Date Instruction Additional Infor mation No Information Assessments Type Assessment Date No Information Patient Care Teams Name Effective Dates (start - stop) Status Members No Information
[2024-10-12] VITALS (13 sets, daily range): BP systolic 72–114; BP diastolic 43–58; PULSE 74–98; RESP 12–22; TEMP 36.6–36.8; O2SAT 97–100; BMI 22.9
--- NOTE | 2024-10-12 19:32 | XR_ITS ---
PROCEDURE INFORMATION: Exam: XR Chest Exam date and time: 10/12/2024 7:54 PM Age: 64 years old Clinical indication: Injury or trauma; Fall; Blunt trauma (contusions or hematomas) TECHNIQUE: Imaging protocol: Radiologic exam of the chest. Views: 1 view. COMPARISON: CT LUNG SCREENING 07/01/2024 1:50 PM FINDINGS: Tubes, catheters and devices: Multi lead left-sided cardiac pacemaker Lungs: Granulomatous change Pleural spaces: Unremarkable. No pleural effusion. No pneumothorax. Heart/Mediastinum: Cardiomegaly Bones/joints: Midline sternotomy IMPRESSION: No acute findings.
--- NOTE | 2024-10-12 19:33 | CT_ITS ---
PROCEDURE INFORMATION: Exam: CTA Chest With Contrast Exam date and time: 10/12/2024 8:15 PM Age: 64 years old Clinical indication: Injury or trauma; Fall; Additional info: Fall on eliquis TECHNIQUE: Imaging protocol: Computed tomographic angiography of the chest with contrast. Exam focused on the arteries. 3D rendering (Not supervised by radiologist): MIP and/or 3D reconstructed images were created by the technologist. Radiation optimization: All CT scans at this facility use at least one of these dose optimization techniques: automated exposure control; mA and/or kV adjustment per patient size (includes targeted exams where dose is matched to clinical indication); or iterative reconstruction. Contrast material: ISOVUE; Contrast volume: 80 ml; Contrast route: INTRAVENOUS (IV); COMPARISON: CT ANGIO CHEST PE PROTOCOL 03/15/2024 1:24 PM FINDINGS: Pulmonary arteries: Normal. No pulmonary emboli. Aorta: Unremarkable. No aortic aneurysm. No aortic dissection. Lungs: Unremarkable. No consolidation. No masses. Pleural spaces: Unremarkable. No pneumothorax. No pleural effusion. Heart: Unremarkable. No cardiomegaly. No pericardial effusion. Lymph nodes: Unremarkable. No enlarged lymph nodes. Bones/joints: Unremarkable. No acute fracture. Soft tissues: Unremarkable. IMPRESSION: No acute findings.
--- NOTE | 2024-10-12 19:33 | CT_ITS ---
PROCEDURE INFORMATION: Exam: CT Head Without Contrast Exam date and time: 10/12/2024 8:12 PM Age: 64 years old Clinical indication: Injury or trauma; Fall; Additional info: Fall on eliquis, head trauma TECHNIQUE: Imaging protocol: Computed tomography of the head without contrast. Radiation optimization: All CT scans at this facility use at least one of these dose optimization techniques: automated exposure control; mA and/or kV adjustment per patient size (includes targeted exams where dose is matched to clinical indication); or iterative reconstruction. COMPARISON: CT HEAD/BRAIN WO CON 02/19/2024 5:44 PM FINDINGS: Brain: Age-related volume loss. Decreased attenuation of the supratentorial white matter is likely secondary to chronic microvascular ischemia. 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 No acute intracranial hemorrhage. No midline shift. No acute intracranial hemorrhage. Cerebral ventricles: Ventriculomegaly is commensurate for degree of volume loss. Paranasal sinuses: Opacification of hypoplastic maxillary sinuses. Mastoid air cells: Visualized mastoid air cells are well aerated. Bones: Unremarkable. No acute fracture. Soft tissues: Unremarkable. IMPRESSION: No acute intracranial abnormality.
--- NOTE | 2024-10-12 19:33 | CT_ITS ---
PROCEDURE INFORMATION: Exam: CTA Abdomen and Pelvis With Contrast Exam date and time: 10/12/2024 8:15 PM Age: 64 years old Clinical indication: Injury or trauma; Fall; Additional info: Fall on eliquis TECHNIQUE: Imaging protocol: Computed tomographic angiography of the abdomen and pelvis with contrast. Exam focused on the arteries. 3D rendering (Not supervised by radiologist): MIP and/or 3D reconstructed images were created by the technologist. Radiation optimization: All CT scans at this facility use at least one of these dose optimization techniques: automated exposure control; mA and/or kV adjustment per patient size (includes targeted exams where dose is matched to clinical indication); or iterative reconstruction. Contrast material: ISOVUE; Contrast volume: 80 ml; Contrast route: INTRAVENOUS (IV); COMPARISON: CT ABDOMEN PELVIS WO CON 03/05/2024 1:12 PM FINDINGS: Aorta: Aorta bi-iliac graft. Aorta bi-iliac graft well opacified. Celiac trunk and mesenteric arteries: Occlusion of the proximal celiac trunk. SMA shows 70% stenosis. Renal arteries: No occlusion or significant stenosis. Right iliac arteries: No occlusion or significant stenosis. Left iliac arteries: No occlusion or significant stenosis. Liver: Cirrhosis. Gallbladder and biliary ducts: Unremarkable. No calcified stones. No ductal dilation. Pancreas: Unremarkable. No mass. No ductal dilation. Spleen: Unremarkable. No splenomegaly. Adrenal glands: Unremarkable. No mass. Kidneys and ureters: Simple cysts involving bilateral kidneys requiring no further follow-up. Stomach and bowel: Unremarkable. No obstruction. No mucosal thickening. Appendix: No evidence of appendicitis. Intraperitoneal space: Unremarkable. No free air. No significant fluid collection. Lymph nodes: Unremarkable. No enlarged lymph nodes. Urinary bladder: Unremarkable. No mass. Reproductive: Hysterectomy Bones/joints: Acute right inferior and subtle right superior pubic ramus fracture. Soft tissues: Large ventral abdominal wall hernia containing non incarcerated small and large bowel. IMPRESSION: 1. Occluded celiac trunk. 2. SMA shows 70% stenosis 3. Aorta bi-iliac graft is patent 4. Large ventral abdominal wall hernia containing non incarcerated bowel loops 5.Acute right inferior and subtle right superior pubic ramus fracture.
--- NOTE | 2024-10-12 19:33 | CT_ITS ---
PROCEDURE INFORMATION: Exam: CT Cervical Spine Without Contrast Exam date and time: 10/12/2024 8:13 PM Age: 64 years old Clinical indication: Injury or trauma; Fall; Additional info: Fall on eliquis no obvious pain TECHNIQUE: Imaging protocol: Computed tomography of the cervical spine without contrast. Radiation optimization: All CT scans at this facility use at least one of these dose optimization techniques: automated exposure control; mA and/or kV adjustment per patient size (includes targeted exams where dose is matched to clinical indication); or iterative reconstruction. COMPARISON: CT HEAD/BRAIN WO CON 10/12/2024 8:12 PM FINDINGS: Bones: Mild dextroconvex curvature. Vertebral body and AP alignment is preserved. Mild degenerative change about the dens. Minimal prevertebral osteophytosis. No acute cervical spine fracture. Lungs: Lung apices are normal. Vasculature: Vascular calcification. No visible pneumothorax. Soft tissues: Unremarkable. IMPRESSION: No acute cervical spine fracture.
--- OUTSIDE RECORDS SUMMARY | 2024-10-12 19:33 | XMS_ITS | Encounter Summary ---
Author Organization [employer] ([place], [place], [place], [place]) Address [address] [place] [address] Care Team Providers Care Laboratory Technology Teacher Name Role Phone Unavailable Primary Care Provider Unavailabl e Encounter Details Date Type Department Care Team (Late st Contact Info) Description 03/24/2018 Transcribed Document [facility] [place] Family Medicine [address] [place] [address] ProviderZion MD [address] [place] [address] Social History Tobacco Use Types Packs/Day Years Used Date Smoking Tobacco: Never Assessed Comments Unknown Sex and Gender Information Value Date Recorded Sex Assigned at Not on file Legal Sex Female 4:39 PM CDT Gender Identity Not on file Sexual Orientation Not on file documented as of this encounter Miscellaneous Notes * [employer]ner Conversion Note - Historical ProviderMD - 03/24/2018 1:34 PM DICE SPOTTER Consult Phone Call Documentation Entered On: 03/24/2018 14:54 EST Performed On: 03/24/2018 14:55 EST by MANE CARROLL Phone Call for Consults Consult Phone Call/Page Attempt : First call Consult Reason : Called in Consult on 03/24/18 at 1455 for: +positive blood cultures at OSH perDr. Chritsian COLETHA - 03/24/2018 14:53 EST Electronically signed by [facility] Conversion Clothes Wringer Cerner at 05/29/2022 8:51 PM CDT documented in this encounter Plan of Treatment Not on file documented as of this encounter Visit Diagnoses Not on filedocumented in this encounter
--- OUTSIDE RECORDS SUMMARY | 2024-10-12 19:33 | XMS_ITS | Encounter Summary ---
Author Organization [employer] ([place], [place], [place], [place]) Address [address] [place] [address] Care Team Providers Care Duplicate Maker Name Role Phone Unavailable Primary Care Provider Unavailabl e Encounter Details Date Type Department Care Team (Late st Contact Info) Description 03/24/2018 Transcribed Document [facility] [place] [address] [place] [address] ProviderZion MD [address] [place] [address] Social History Tobacco Use Types Packs/Day Years Used Date Smoking Tobacco: Never Assessed Comments Unknown Sex and Gender Information Value Date Recorded Sex Assigned at Not on file Legal Sex Female 4:39 PM CDT Gender Identity Not on file Sexual Orientation Not on file documented as of this encounter Miscellaneous Notes * Cerner Conversion Note - Historical ProviderMD - 03/24/2018 3:32 PM WEIGHT CONTROL LECTURER Event Note Entered On: 03/24/2018 15:32 EST Performed On: 03/24/2018 15:32 EST by Demetri Arrington Rn Event Note Event Date/Time : 03/24/2018 15:32 EST Description of Event : patient insisting on going down to smoke. smoking form signed Demetri Arrington Rn - 03/24/2018 15:32 EST Electronically signed by Jorge Alberto [facility] Conversion Solutions Specialist Bartolomener at 05/29/2022 8:38 PM CDT documented in this encounter Plan of Treatment Not on file documented as of this encounter Visit Diagnoses Not on filedocumented in this encounter
--- NOTE | 2024-10-12 19:34 | HMH.EDGENADL ---
Discharge Plan Disposition Patient Disposition: Home, Self-Care Prescriptions Prescriptions: No Action (DME) True Metrix Glucose Test Strip Strip See Rx Instructions .ROUTE .MEDSUPPLY Qty: 10 Rx Instructions: As directed (DME) insulin syringe-needle U-100 1 mL 31 gauge x 5/16 syringe See Rx Instructions .ROUTE .MEDSUPPLY Qty: 10 Rx Instructions: As directed (DME) Dexcom G7 Sensor Device See Rx Instructions .ROUTE .MEDSUPPLY Qty: 1 Patient Comments: USE DIRECTED CHANGING EVERY 10 DAYS Rx Instructions: As directed insulin lispro 100 unit/mL solution 0 unit SQ DIRECTED atorvastatin [Lipitor] 40 mg tablet 40 mg PO HS ropinirole 1 mg tablet 1 mg PO HS Rx Instructions: administer 1-3 hours before bedtime citalopram 20 mg tablet 20 mg PO DAILY levothyroxine 25 mcg capsule 25 mcg PO DAILY amiodarone 200 mg tablet 400 mg PO DAILY ondansetron HCl 4 mg tablet 4 mg PO Q6H PRN clopidogrel 75 mg tablet 75 mg PO DAILY Eliquis 5 mg tablet 5 mg PO BID Vraylar 1.5 mg capsule 1.5 mg PO DAILY albuterol sulfate 90 mcg/actuation HFA aerosol inhaler 2 inh inhalation QID PRN (Reason: shortness of breath or wheezing) 90 Days Qty: 8.5 2RF pantoprazole [Protonix] 40 mg tablet,delayed release (DR/EC) 40 mg PO DAILY trazodone 50 mg tablet 50 mg PO QHS alprazolam 0.5 mg tablet 0.5 mg PO BID Qty: 60 5RF torsemide 20 mg Tablet 20 mg PO DAILY 30 Days Qty: 30 0RF sacubitril-valsartan [Entresto] 24-26 mg tablet 1 tab PO BID Patient Comments: TAKE 1 TABLET BY MOUTH 2 TIMES A DAY insulin glargine [Lantus Solostar U-100 Insulin] 100 unit/mL (3 mL) insulin pen 10 unit SQ HS Qty: 3 0RF Referrals Follow up/Referrals: Provider,Referral, MD [Primary Care Provider, Medical] - See instructions Clinical Impressions Clinical Impression: STACY (acute kidney injury), Fracture of pubic ramus, Acute hyperkalemia, Acute uremia, Acute hypotension, Anemia Print Language Print Language: Pashto Discharge ED Provider: Tito Madrid General Adult HPI General Chief complaint: Fall Stated complaint: fall Time Seen by Provider: 10/12/24 19:32 History of Present Illness HPI narrative: Patient is 64-year-old female who lives in a assisted with multiple comorbidities on Eliquis who presents emergency department for evaluation of traumatic injury sustained in fall. Patient was having her smoking break when she fell from standing backwards striking the ground. Per her chart review she has a history of pulmonary emboli on anticoagulation, smoker greater than 20-year history atrial fibrillation, coronary artery disease, reported pancreatic mass, peripheral artery disease, hypertensive heart disease hyperlipidemia. Acceptable glucose en route patient was hypotensive en route 80s over 40s. Per medication review she is on amiodarone apixaban atorvastatin citalopram clopidogrel insulin levothyroxine Secubatril alsartan, torsemide, trazodone, among others. Last echo at the end of 2023 EF approximately 45 to 50%. Patient is not complaining of any pain. Related Data Home Medications ?Medication ?Instructions ?Recorded ?Confirmed blood sugar diagnostic (True #10 ea 04/22/24 10/08/24 Metrix Glucose Test Strip) blood-glucose sensor (Dexcom G7 #1 ea 04/22/24 10/08/24 Sensor device) insulin syringe-needle U-100 1 mL #10 ea 04/22/24 10/08/24 31 gauge x 5/16 insulin lispro 100 unit/mL 0 unit SQ DIRECTED INSULIN PUMP 07/02/24 10/08/24 subcutaneous solution sacubitril 24 mg-valsartan 26 mg 1 tab PO BID 10/05/24 10/08/24 tablet (Entresto) Held on 10/06/24. Instructions: Resume on 10/09/24. Acute kidney injury. pantoprazole 40 mg tablet,delayed 40 mg PO DAILY 10/07/24 10/08/24 release (Protonix) amiodarone 200 mg tablet 400 mg PO DAILY 10/08/24 10/08/24 apixaban 5 mg tablet (Eliquis) 5 mg PO BID 10/08/24 10/08/24 atorvastatin 40 mg tablet (Lipitor) 40 mg PO HS 10/08/24 10/08/24 cariprazine 1.5 mg capsule 1.5 mg PO DAILY 10/08/24 10/08/24 (Vraylar) citalopram 20 mg tablet 20 mg PO DAILY 10/08/24 10/08/24 clopidogrel 75 mg tablet 75 mg PO DAILY 10/08/24 10/08/24 levothyroxine 25 mcg capsule 25 mcg PO DAILY 10/08/24 10/08/24 ondansetron HCl 4 mg tablet 4 mg PO Q6H PRN 10/08/24 10/08/24 ropinirole 1 mg tablet 1 mg PO HS 10/08/24 10/08/24 trazodone 50 mg tablet 50 mg PO QHS 10/08/24 10/08/24 Previous Rx's ?Medication ?Instructions ?Recorded torsemide 20 mg tablet 20 mg PO DAILY 30 days #30 tabs 03/20/24 Held on 10/06/24. Instructions: Resume on 10/09/24. Acute kidney injury. albuterol sulfate 90 mcg/actuation 2 inh inhalation QID PRN shortness 07/09/24 aerosol inhaler of breath or wheezing 90 days #8.5 grams insulin glargine 100 unit/mL (3 10 unit (0.1 mL) SQ HS #3 mL 10/06/24 mL) subcutaneous pen (Lantus Solostar U-100 Insulin) alprazolam 0.5 mg tablet 0.5 mg PO BID #60 tabs 10/12/24 Allergies Allergy/AdvReac Type Severity Reaction Status Date / Time No Known Allergies Allergy Verified 10/07/24 09:18 [facility] Disclaimer: The information contained in this section may have been updated after the patient was seen, as this information can be updated by other users. Medical History (Updated 10/12/24 @ 22:21 by Tito Madrid MD) Generalized weakness Diabetes mellitus Pulmonary embolism Neuropathic pain Failure to thrive Shock Impaired ambulation Self-care deficit Marijuana smoker Pulmonary embolism on left Smoking greater than 30 pack years Pulmonary emphysema Chronic kidney disease Atrial fibrillation Acute respiratory failure with hypoxia Pleural effusion on right Chronic endocarditis Acute on chronic HFrEF (heart failure with reduced ejection fraction) Coronary artery disease Right kidney mass Pancreatic mass Dental abscess Pain, dental Hematuria Nausea vomiting and diarrhea Hypovolemia Infection due to extended-spectrum [id number] Klebsiella pneumoniae Yeast infection of the vagina STACY (acute kidney injury) Cellulitis Candidiasis Presence of urostomy Vitamin D deficiency Bacterial endocarditis Obesity (BMI 30.0-34.9) Gastroenteritis due to norovirus Bacteremia Pacemaker Bladder cancer Diarrhea UTI (urinary tract infection) Dehydration Abscess of skin or subcutaneous tissue Valvular heart disease Palpitations Myocardial infarction HTN (hypertension), benign Depression CHF (congestive heart failure) Anxiety PAD (peripheral artery disease) Abnormal ankle brachial index (GOMEZ) HHD (hypertensive heart disease) HLD (hyperlipidemia) Carotid bruit Carotid artery stenosis Surgical History (Updated 10/10/24 @ 00:00 by Carlos Byrnes) S/P ileal conduit (~12/2020) H/O tricuspid valve repair History of insertion of stent into coronary artery bypass graft History of urostomy Hx of cholecystectomy H/O: hysterectomy Hx of tonsillectomy History of mitral valve replacement S/P left atrial appendage ligation AICD (automatic cardioverter/defibrillator) present History of coronary artery bypass graft Family History Other Cancer Diabetes Heart attack Social History (Updated 10/08/24 @ 22:26 by Jacob Holder MD) Smoking Status: Current every day smoker tobacco type: cigarettes packs per day: 1 second hand exposure: Yes alcohol intake: never substance use type: marijuana current occupational status: disabled Travel in the last 8 weeks?: None household members: family housing: house number of children: 2 current occupational exposures/hazards: No caffeine: Yes Have you lived/traveled outside [place] in past 30 days?: No Contact w/someone who lives/traveled outside [place] past 30 days?: No Exposure to someone with infectious disease in past 14 days?: No Do you have a fever (greater than 100.4 F or 38 C)?: No Have you tested positive for COVID-19?: No Exposed to someone with COVID-19 in past 14 days?: No Do you have a sore throat?: No Do you have a cough?: No Do you have any weakness?: No Do you have any diarrhea?: No Are you experiencing any unusual bleeding?: No Do you have any muscle aches/pain?: No Do you have any abdominal pain?: No Are you experiencing loss of taste or smell?: No Other Medical History Have you received the Flu Vaccine for this season: No Have you received the Pneumonia Vaccine: Yes ROS Obtained: Yes Systems reviewed as appropriate & no additional complaints except as documented Physical Exam General General appearance: alert and in no apparent distress Comment: C-collar in place Head Head exam: atraumatic and normocephalic Eye Eye exam: Present PERRL and EOMI ENT ENT exam: Present mucous membranes moist Neck Neck exam: Present normal inspection Chest Chest inspection: Present normal inspection and symmetric chest wall rise Respiratory Respiratory exam: Present normal lung sounds bilaterally; Absent respiratory distress Cardiovascular Cardiovascular exam: Present regular rate and normal rhythm Abdominal Exam Abdominal exam: Present soft and other (Ostomy bag in place); Absent tenderness Extremities Exam Extremities exam: Present normal inspection Neurological Exam Neurological exam: Present alert Psychiatric Psychiatric exam: Present normal affect Skin Skin exam: Present warm and dry Medical Decision Making Medical Records Screening: Per USPSTF and CDC recommendations, given the prevalence of disease in our region, it is our hospital?s policy to screen for HIV and viral Hepatitis for all patients aged 18 and over and those with ongoing risk factors. [place] Inquiry Pt receiving controlled substance: No Vital Signs: 10/12/24 19:59 10/12/24 20:09 Temperature 97.8 F 97.8 F Temperature Source Oral Oral Pulse Rate [Apical] 85 85 Respiratory Rate 17 17 Blood Pressure [Right Arm] 90/52 L 90/52 L Blood Pressure Mean [Right Arm] 64 64 Blood Pressure Source [Right Arm] Manual Cuff/ Auscultation Automatic Cuff Blood Pressure Position [Right Arm] Supine Supine 02 Sat by Pulse Oximetry 99 99 Oxygen Delivery Method Room Air Room Air Lab Data Lab Results 10/12/24 19:27: POC Glucose 123 H 10/12/24 19:30: WBC 10.9 H, RBC 2.96 L, Hgb 7.0 L, Hct 22.6 L, MCV 76.4 L, MCH 23.6 L, MCHC 31.0 L, RDW 19.6 H, Plt Count 276, MPV 11.2 H, Neut % (Auto) 78.9, Lymph % (Auto) 14.2, [place] % (Auto) 4.6, Eos % (Auto) 1.1, Baso % (Auto) 0.3, Neut # (Auto) 8.6 H, Lymph # (Auto) 1.6, [place] # (Auto) 0.5, Eos # (Auto) 0.1, Baso # (Auto) 0.0, PT 13.0 H, INR 1.19 H, APTT 29.0, Sodium 132 L, Potassium 6.1 H*, Chloride 110 H, Carbon Dioxide 11 L, Anion Gap 17.1 H, BUN 84 H, Creatinine 3.90 H, Estimated Creat Clear 13, Estimated GFR 12 L*, Est GFR ( Amer) 14 L*, Glucose 88, Calcium 8.5, Total Bilirubin 0.7, AST 42 H, ALT 16, Alkaline Phosphatase 70, Total Protein 7.0, Albumin 4.1, Globulin 2.9, Albumin/Globulin Ratio 1.4, Lipase 159, TSH 4.01, Free T4 2.31 H 10/12/24 21:30: Urine Color Yellow, Urine Appearance Clear, Urine pH 6.5, Ur Specific [place] <= 1.005, Urine Protein Negative, Urine Glucose (UA) Trace, Urine Ketones Negative, Urine Blood Trace-i, Urine Nitrate Negative, Urine Bilirubin Negative, Urine Urobilinogen 0.2, Ur Leukocyte Esterase Negative 10/12/24 21:53: POC Glucose 167 H 10/12/24 19:30 10/12/24 19:30 Orders (Tests/Meds): ED MEDICATIONS Generic Name Dose Route Start Last Admin Trade Name Freq PRN Reason Stop Dose Admin Calcium Gluconate/Sodium Chloride 2 gm in 100 mls @ 50 mls/hr 10/12/24 20:38 10/12/24 21:03 Calcium Gluconate 2,000mg/100ml Nacl Premix IV 10/12/24 22:37 50 mls/hr ONCE ONE Administration Sodium Chloride 250 mls @ 25 mls/hr 10/12/24 22:15 Sod Chlor 0.9% 250ml Bag IV 10/13/24 22:14 .Q10H BIJAN Lactated Ringer's 1,000 mls @ 999 mls/hr 10/12/24 22:14 Lactated Ringer's 1000 Ml Bag IV 10/12/24 23:14 .Q1H1M ONE Sodium Chloride 10 ml 10/12/24 19:32 Sodium Chloride 0.9% 10ml Flush Syringe IV 11/11/24 19:31 NEEDED PRN Maintain IV Site Discontinued Medications Generic Name Dose Route Start Last Admin Trade Name Freq PRN Reason Stop Dose Admin Dextrose 50 ml 10/12/24 20:38 10/12/24 21:03 Dextrose 50% 50ml Syringe (Crash Cart) IVP 10/12/24 20:39 50 ml ONCE ONE Administration Insulin Human Regular 5 unit 10/12/24 20:38 10/12/24 21:02 Insulin Human Regular 100 Units/Ml 10ml Vial IVP 10/12/24 20:39 5 unit ONCE ONE Administration Iopamidol 80 ml 10/12/24 20:11 10/12/24 20:13 Iopamidol-370 (76%);100ml Bottle IV 10/12/24 20:12 80 ml ONCE ONE Administration Sodium Chloride 10 ml 10/12/24 20:11 10/12/24 20:13 Sodium Chloride 0.9% 10ml Syr (Rad Only) IV 10/12/24 20:12 10 ml ONCE ONE Administration Sodium Chloride 50 ml 10/12/24 20:11 10/12/24 20:13 0.9 % Sodium Chloride 50 Ml Vial IV 10/12/24 20:12 50 ml ONCE ONE Administration Tetanus/Reduced Diphtheria/Acell Pertussis 0.5 ml 10/12/24 19:41 10/12/24 20:01 Tet/Diphth/Pert-Adult 0.5ml Syringe IM 10/12/24 19:42 0.5 ml .ONCE ONE Administration ORDERS Category Date Time Status Transfuse RBC's [Red Blood Cells] Stat BBK 10/12/24 22:06 Ordered Type and Screen Stat BBK 10/12/24 22:[address] angio abd/pel - TRAUMA Stat Cat Scan 10/12/24 19:[address] angio chest - dissection Stat Cat Scan 10/12/24 19:[address] cervical spine wo con Stat Cat Scan 10/12/24 19:[address] head/brain wo con Stat Cat Scan 10/12/24 19:33 Completed XR chest portable Stat Exams 10/12/24 19:32 Completed Activated Partial Thrombo Time Stat Lab 10/12/24 19:30 Completed Complete Blood Count Auto Diff Stat Lab 10/12/24 19:30 Completed Comprehensive Metabolic Panel Stat Lab 10/12/24 19:30 Completed Free T4 (Free Thyroxine) Stat Lab 10/12/24 19:30 Completed Lipase Stat Lab 10/12/24 19:30 Completed POC Glucose,Bedside Routine Lab 10/12/24 19:27 Completed POC Glucose,Bedside Routine Lab 10/12/24 21:53 Completed Prothrombin Time INR Stat Lab 10/12/24 19:30 Completed TSH [Thyroid Stimulating Hormone] Stat Lab 10/12/24 19:30 Completed Urinalysis and Microscopic Stat Lab 10/12/24 21:30 Results ECG Data Tracing #1: Independently interpreted by me rate is 90, rhythm is V-paced, significant chatter given patient movement, no overt ST elevation in anatomical contiguous leads, QTc 441. Medical Decision Narrative: In summary patient is a 64-year-old female with past medical history described above who presents emergency department for evaluation of traumatic injury sustained in a fall on anticoagulation. Patient is hemodynamically stable with soft blood pressures upon arrival however, afebrile, c-collar in place. Differential includes traumatic injury sustained to the head, neck, thorax, pelvis, extremities. Gentle crystalloid resuscitation will be conducted given that she may be over diuresed and her recent ejection fraction was 2045 to 50% to see if it improves her blood pressures. Patient will emergently go to CAT scan for imaging. Imaging will be conducted in totality with noncontrasted CT scan head noncontrasted CT scan cervical spine CT chest, abdomen, pelvis. Broad hematologic labs and urinalysis will be obtained. Tdap will be updated. Initial hematologic labs reviewed by me, she has hemoglobin of 7 but does not have active blood loss currently that would warrant emergent transfusion given that she has chronic anemia at baseline although it is slightly worse than normal. Slight leukocytosis of 10.9, no thrombocytopenia, there is sodium of 132 potassium is 6.1 and BUN of 84 with a creatinine of 3.9 with a baseline of 2.5 that has been uptrending throughout the year. Calcium gluconate and insulin/glucose will be administered. Free T4 is actually elevated at 2.[address] abdomen pelvis has an occluded celiac trunk, 70% stenosis of her SMA a patent biiliac aortic graft, a large ventral abdominal wall hernia containing nonincarcerated bowel loops and an acute right inferior and right superior pubic ramus fracture. Upon repeat evaluation patient had downtrending blood pressures with a hemoglobin of 7 I contacted lab for emergent release blood unfortunately patient has multiple antibodies that preclude her from being transfused even with emergent blood and they would have to send it off for compatibility at [facility] which given time window is worthless with relation to her emergency department care. Given her chance of transfusion reaction being very high I further question the patient she has had some vomiting and diarrhea lately. Given this we will initiate 1 L crystalloid bolus. Case discussed with rolan Faust who graciously accepted patient for transfer for continued evaluation at this time. Critical Care Critical Care Time Critical Care Time: Yes Attestation: On 10/12/24, the high probability of a clinically significant, sudden or life threatening deterioration of the following system(s) required my full and direct attention, intervention and personal management. The time I documented below is in addition to time spent performing reported procedures but includes the following listed in this critical care notation. Total Time Total Critical Care Time: 45
--- OUTSIDE RECORDS SUMMARY | 2024-10-12 19:34 | XMS_ITS | Encounter Summary ---
Author Organization [employer] ([place], [place], [place], [place]) Address [address] [place] [address] Care Team Providers Care Attending Psychiatrist Name Role Phone Unavailable Primary Care Provider Unavailabl e Encounter Details Date Type Department Care Team (Late st Contact Info) Description 03/23/2018 Transcribed Document [facility] [place] Family Medicine [address] [place] [address] ProviderZion MD [address] [place] [address] Social History Tobacco Use Types Packs/Day Years Used Date Smoking Tobacco: Never Assessed Comments Unknown Sex and Gender Information Value Date Recorded Sex Assigned at Not on file Legal Sex Female 4:39 PM CDT Gender Identity Not on file Sexual Orientation Not on file documented as of this encounter Miscellaneous Notes * Cerner Conversion Note - Historical ProviderMD - 03/23/2018 5:54 PM OIL PUMPER Care Management Assessment/Plan Entered On: 03/26/2018 17:47 EST Performed On: 03/26/2018 17:36 EST by DEEPA GALDAMEZ Social Worker Care Management Note Anticipated Discharge Date : 03/31/2018 14:00 EST Documentation Status Complete : Yes DEEPA GALDAMEZ Social Worker - 03/26/2018 17:36 EST Patient History Information Obtained from, Care Mgt : Patient, Medical Record Current Primary Care Physician : Anne Mott APRN Emergency Contact #1 : Quynh Cronin Emergency Contact #1 Emergency Contact #1 Relationship : daughter Emergency Contact #2 : Nataliya dat Emergency Contact #2 Emergency Contact #2 Relationship : dtr Living Situation : Home Patient Lives With : Spouse Mobility Assistance Prior to Admission : Independent Current Daily Living Assistance : None Professional Skilled Services : None Current Home Treatments : Blood glucose monitoring Home Equipment : Monitor Special Services and Community Resources : None Assistance Needed with ADLs : None Sources of Income : Pension, Social Security, Disability (SSD) Employment/Vocation : Pt is disabled Patient History Note : Talked w/ this 57 yr old W F transferred here from [facility] w/ bradycardia, positive blood cultures/strep B sepsis bactremia. PMH includes: bladder cancer, CAD s/p CABG, MVR, PPM plcmt (for which pt has had no F/U), pancreatitis, , COPD, DM, HTN, HLD, depression and anxiety. Pt underwent BROCK today due to concern for possible infected pacemaker (report not in yet). She is currently on 2gm IV rocephin, which [facility] says she will need until 04/20/18. Pt lives w/ her estranged spouse [facility], claims she is indep w/ all activities. D/C plan pending outcome of possible pacer removal, may well be good [facility] candidate. She denies any needs now, CM will cont to follow. DEEPA GALDAMEZ, Director Of Religious Life - 03/26/2018 17:36 EST Electronically signed by Vinayak [employer] Conversion Renewable Energy Division Manager Cerner at 05/29/2022 8:54 PM CDT documented in this encounter Plan of Treatment Not on file documented as of this encounter Visit Diagnoses Not on filedocumented in this encounter
--- OUTSIDE RECORDS SUMMARY | 2024-10-12 19:34 | XMS_ITS | Encounter Summary ---
Author Organization [employer] ([place], [place], [place], [place]) Address [address] [place] [address] Care Team Providers Care Senior Naval Parachutist Name Role Phone Unavailable Primary Care Provider Unavailabl e Encounter Details Date Type Department Care Team (Late st Contact Info) Description 03/26/2018 Transcribed Document [facility] [place] [address] [place] [address] ProviderZion MD [address], [place] [id number] Social History Tobacco Use Types Packs/Day Years Used Date Smoking Tobacco: Never Assessed Comments Unknown Sex and Gender Information Value Date Recorded Sex Assigned at Not on file Legal Sex Female 4:39 PM CDT Gender Identity Not on file Sexual Orientation Not on file documented as of this encounter Miscellaneous Notes * Cerner Conversion Note - Historical ProviderMD - 03/26/2018 5:00 AM BODY TEAM MEMBER Chart Check - Review Order Profile Entered On: 03/26/2018 4:12 EST Performed On: 03/26/2018 5:00 EST by Tasia Ewing Rn-Resource Chart Check Chart Reviewed Date and Time : 03/26/2018 4:30 EST Powerplans Initiated/Discontinued as Appropriate : Yes All Active Orders Reviewed : Yes Chart Reviewed With : Tasia Ewing, Rn-Resource Tasia Ewing, Rn-Resource - 03/26/2018 4:12 EST documented in this encounter Plan of Treatment Not on file documented as of this encounter Visit Diagnoses Not on filedocumented in this encounter
--- OUTSIDE RECORDS SUMMARY | 2024-10-12 19:34 | XMS_ITS | Encounter Summary ---
Author Organization [employer] ([place], [place], [place], [place]) Address [address] [place] [address] Care Team Providers Care Medical Anthropology Director Name Role Phone Unavailable Primary Care Provider Unavailabl e Encounter Details Date Type Department Care Team (Late st Contact Info) Description 03/25/2018 Transcribed Document [facility] [place] [address] [place] [address] ProviderZion MD [address] [id number] Social History Tobacco Use Types Packs/Day Years Used Date Smoking Tobacco: Never Assessed Comments Unknown Sex and Gender Information Value Date Recorded Sex Assigned at Not on file Legal Sex Female 4:39 PM CDT Gender Identity Not on file Sexual Orientation Not on file documented as of this encounter Miscellaneous Notes * Cerner Conversion Note - Historical ProviderMD - 03/25/2018 2:00 AM FIRMWARE MANAGER Diesel Mechanic Farm Details Entered On: 03/25/2018 4:05 EST Performed On: 03/25/2018 2:00 EST by Carolina Valenzuela RN Order Details Transport Mode Order Detail : Wheelchair Isolation Precautions Order Detail : Contact precautions Order Detail : 0 IV Order Detail : 1 Oxygen Order Detail : 0 Nurse Collect Order Detail : 0 Lift/Transfer : Independent Central Line Order Detail : No Room Service : Appropriate Arterial Line : No Carolina Valenzuela RN - 03/25/2018 4:04 EST documented in this encounter Plan of Treatment Not on file documented as of this encounter Visit Diagnoses Not on filedocumented in this encounter
--- OUTSIDE RECORDS SUMMARY | 2024-10-12 19:34 | XMS_ITS | Encounter Summary ---
Author Organization [employer] ([place], [place], [place], [place]) Address [address] [place] [address] Care Team Providers Care Nuclear Supervising Operator Name Role Phone Unavailable Primary Care Provider Unavailabl e Encounter Details Date Type Department Care Team (Late st Contact Info) Description 03/23/2018 Transcribed Document [facility] [place] Family Medicine [address] [place] [address] ProviderZion MD [address], [place] [id number] Social History Tobacco Use Types Packs/Day Years Used Date Smoking Tobacco: Never Assessed Comments Unknown Sex and Gender Information Value Date Recorded Sex Assigned at Not on file Legal Sex Female 4:39 PM CDT Gender Identity Not on file Sexual Orientation Not on file documented as of this encounter Miscellaneous Notes * Cerner Conversion Note - [place] ProviderMD - 03/23/2018 6:37 PM HR ADVISOR Patient: ETHAN CRONIN Age: 57 years Sex: Female : 1960 Associated Diagnoses: None Author: Anastacia Roth, Pharm.D.-Resident HPI: 57 year old female transferred from [facility] due to bradycardia during infusion. Pt has hx of CAD, CABG/pacemaker 3 years ago, DM, HTN, and NH. Pt also has hx of bacteremia and was on antibitoics outpatient and pt cannot confirm what abx she was on. Pharmacist called [facility] and confirmed that pt did not receive any antibiotics while she was at the hospital. Pharmacy consulted to dose vancomycin for bacteremia Consult: vancomycin Indication: bacteremia Goal of Trough: 12-18 mcg/mL Consulting MD: Omar Nelson ID on Board: consulted Allergies: No known allergies Current Abx: ceftriaxone 2g IV q24H (start 2/10) vancomycin (start 03/23) Labs (Last four charted values) WBC 9.0 (FEB 10) HB L 10.8 (FEB 10) HCT 35.0 (FEB 10) Plt H 379 (FEB 10) Na 141 (FEB 10) K 3.9 (FEB 10) Cl 110 (FEB 10) CO2 L 18 (FEB 10) BUN 20 (FEB 10) Cr 1.00 (FEB 10) Glu R 102 (FEB 10) Ca L 7.8 (FEB 10) Lactic 1.4 (FEB 10) PT 11.3 (FEB 10) INR 1.0 (FEB 10) AST 29 (FEB 10) ALT 28 (FEB 10) ALK P 108 (FEB 10) T Bili 0.5 (FEB 10) PTN 6.5 (FEB 10) ALB L 2.4 (FEB 10) Troponin <0.015 (B 10) Vitals Signs (last 24 hrs) Last Charted Minimum Maximum Temp 97.4 (B 10 17:22) 97.4 (FEB 10 17:22) 97.4 (B 10 17:22) Mon HR 48 (B 17:22) 48 (FEB 10 17:22) 48 (FEB 10 17:22) Resp Rate 18 (B 17:22) 18 (FEB 10 17:22) 18 (B 10 17:22) SBP L 88 (B 10 17:22) L 88 (FEB 10 17:22) L 88 (FEB 10 17:22) DBP L 47 (FEB 10 17:22) L 47 (FEB 10 17:22) L 47 (FEB 10 17:22) MAP 66 (FEB 10 17:22) 66 (FEB 10 17:22) 66 (FEB 10 17:22) SpO2 100 (FEB 10 17:22) 100 (FEB 10 17:22) 100 (FEB 10 17:22) I/O: 03/23-Just admitted Weight: 75.4kg BMI: 31.4 Height: 154.94cm Renal Function: Scr: 1.00 CrCl: 59-75 mL/min Micro: 03/23-blood culture: pending Vanc levels: No record of vancomycin trough in chart search A/P: 1. Continue ceftriaxone 2g IV q24H dose appropriately 2. Will start vancomycin 1g (13.3mg/kg) IV q12H based on age and renal function 3. Will order vancomycin trough prior to the 4th dose on 03/25 -Hold dose if trough > 20 4. All medications appropriately dosed at this time. Rx to continue to follow and adjust based on levels, clinical status, and culture results Thank you for the consult. Pharmacy will continue to follow Anastacia Roth PharmD PGY-1 [address] [place] [phone] documented in this encounter Plan of Treatment Not on file documented as of this encounter Visit Diagnoses Not on filedocumented in this encounter
--- OUTSIDE RECORDS SUMMARY | 2024-10-12 19:34 | XMS_ITS | Encounter Summary ---
Author Organization [employer] ([place], [place], [place], [place]) Address [address] [place] [address] Care Team Providers Care Salon/Spa Manager Name Role Phone Unavailable Primary Care Provider Unavailabl e Encounter Details Date Type Department Care Team (Late st Contact Info) Description 03/28/2018 Transcribed Document [facility] Family Medicine [address] [place] [address] ProviderZion MD [address] [place] [address] Social History Tobacco Use Types Packs/Day Years Used Date Smoking Tobacco: Never Assessed Comments Unknown Sex and Gender Information Value Date Recorded Sex Assigned at Not on file Legal Sex Female 4:39 PM CDT Gender Identity Not on file Sexual Orientation Not on file documented as of this encounter Miscellaneous Notes * Cerner Conversion Note - [place] ProviderMD - 03/28/2018 6:04 PM SECURITY REP Patient: ETHAN LOREDO Age: 57 years Sex: Female : 1960 Associated Diagnoses: None Author: ANIKA SAHU MD Subjective I saw and examined her today no issues overnight no fever has placement and will be discharge tomorrow Health Status Current medications: (Selected) Inpatient Medications Ordered Ambien: 5 mg, Oral, At Bedtime, PRN: Insomnia Ativan: 0.5 mg, IV Push, Q4H, PRN: Agitation CeleXA: 20 mg, Oral, Daily DuoNeb 0.5 mg-2.5 mg/3 mL inhalation solution: 3 mL, Nebulized Inhalation, Q2H, PRN: Shortness of Breath Florastor: 250 mg, Oral, Daily PRAVAstatin: 20 mg, Oral, At Bedtime Pepcid: 20 mg, Oral, Daily Phenergan: 6.25 mg, IntraVENous, Q6H, PRN: Nausea Plavix: 75 mg, Oral, Daily Rocephin: 2 Gram, 100 mL/Hr, IV Piggyback, [id number] Tylenol: 650 mg, Oral, Q4H, PRN: Other (See Comment) Documented Medications Documented ALPRAZolam 0.5 mg oral tablet: 1 Tab, Oral, TID, 0 Refill(s) Ambien 5 mg oral tablet: 1 Tab, Oral, At Bedtime, PRN: for insomnia, 0 Refill(s) Aspirin Enteric Coated 81 mg oral delayed release tablet: 1 Tab, Oral, Daily, 0 Refill(s) CeleXA 40 mg oral tablet: 1 Tab, Oral, Daily, 0 Refill(s) NovoLIN 70/30: 25 Units, SubCutaneous, QPM, 0 Refill(s) NovoLIN 70/30: 40 Units, SubCutaneous, QAM, 0 Refill(s) carvedilol 3.125 mg oral tablet: 1 Tab, Oral, Daily, 60 Tab, 0 Refill(s) gabapentin 300 mg oral capsule: 1 Cap, Oral, At Bedtime, 0 Refill(s) levothyroxine 25 mcg (0.025 mg) oral tablet: 1 Tab, Oral, Daily, 30 Tab, 0 Refill(s) lisinopril 2.5 mg oral tablet: 2 Tab, Oral, Daily, 0 Refill(s), Medications (25) Active Scheduled: (14) aspirin EC 81 mg tab 81 mg 1 Tab, Oral, Daily carvedilol 3.125 mg tab 3.125 mg 1 Tab, Oral, Daily cefTRIAXone 2 Gram, IV Piggyback, [id number] citalopram 20 mg tab 20 mg 1 Tab, Oral, Daily clopidogrel 75 mg tab 75 mg 1 Tab, Oral, Daily famotidine 20 mg tab 20 mg 1 Tab, Oral, Daily gabapentin 300 mg cap 300 mg 1 Cap, Oral, At Bedtime heparin 5,000 units/1 mL inj 5,000 Units 1 mL, SubCutaneous, Q8H insulin lispro 1 unit/0.01 mL inj 76 kg - 100 kg scale, SubCutaneous, AC and at Bedtime levothyroxine 25 mcg tab 25 mcg 1 Tab, Oral, Daily lisinopril 5 mg tab 5 mg 1 Tab, Oral, Daily nicotine 21 mg/24 hr patch 1 Patch, TransDermal, Daily PRAVAstatin sodium 20 mg tab 20 mg 1 Tab, Oral, At Bedtime saccharomyces boulardii 250 mg cap 250 mg 1 Cap, Oral, Daily Continuous: (0) PRN: (11) #NaCl 0.9% *FLUSH* inj 10 mL 10 mL, IV Push, See Comment acetaminophen 325 mg tab 650 mg 2 Tab, Oral, Q4H albuterol-ipratropium inh 3 mL 3 mL, Nebulized Inhalation, Q2H cyclobenzaprine 10 mg tab 10 mg 1 Tab, Oral, TID hydrALAZINE 20 mg/1 mL inj 10 mg 0.5 mL, IV Push, Q6H LORazepam 2 mg/mL inj 0.5 mg 0.25 mL, IV Push, Q4H morphine 2 mg/1 ml inj 2 mg 1 mL, IV Push, Q2H ondansetron 4 mg/2 mL inj 4 mg 2 mL, IV Push, Q4H oxyCODONE 5 mg tab 5 mg 1 Tab, Oral, Q4H promethazine 25 mg/1 mL inj 6.25 mg 0.25 mL, IntraVENous, Q6H zolpidem 5 mg tab 5 mg 1 Tab, Oral, At Bedtime Objective VS/Measurements Vital Signs/Vital Measures 03/28/2018 8:56 EST Heart Rate Monitored 79 bpm Systolic Blood Pressure 92 mmHg Diastolic Blood Pressure 64 mmHg Mean Arterial Pressure (MAP)-BMDI 72 03/28/2018 8:33 EST Heart Rate Monitored 78 bpm Systolic Blood Pressure 91 mmHg Diastolic Blood Pressure 60 mmHg Mean Arterial Pressure (MAP)-BMDI 69 03/28/2018 7:24 EST Oxygen Therapy Mode Room air 03/28/2018 6:43 EST Temperature Source Oral Temperature Mode Fahrenheit Temperature, Fahrenheit 97.5 Deg F Clinical Temperature, C 36.4 Deg C Heart Rate Monitored 75 bpm Respiratory Rate 16 Breaths/Min Systolic Blood Pressure 89 mmHg LOW Diastolic Blood Pressure 56 mmHg LOW Mean Arterial Pressure (MAP)-BMDI 66 Oxygen Saturation 97 % Oxygen Therapy Mode Room air 03/28/2018 3:00 EST Temperature Source Oral Temperature Mode Fahrenheit Temperature, Fahrenheit 98.1 Deg F Clinical Temperature, C 36.7 Deg C Heart Rate Monitored 73 bpm Respiratory Rate 18 Breaths/Min Systolic Blood Pressure 100 mmHg Diastolic Blood Pressure 61 mmHg Mean Arterial Pressure (MAP)-BMDI 73 Oxygen Saturation 96 % 03/27/2018 22:29 EST Temperature Source Oral Temperature Mode Fahrenheit Temperature, Fahrenheit 97.8 Deg F Clinical Temperature, C 36.6 Deg C Heart Rate Monitored 72 bpm Respiratory Rate 16 Breaths/Min Systolic Blood Pressure 106 mmHg Diastolic Blood Pressure 65 mmHg Mean Arterial Pressure (MAP)-BMDI 77 Oxygen Saturation 95 % Oxygen Therapy Mode Room air 03/27/2018 21:29 EST Oxygen Therapy Mode Room air 03/27/2018 17:31 EST Temperature Source Axillary Temperature Mode Fahrenheit Temperature, Fahrenheit 97.3 Deg F Clinical Temperature, C 36.3 Deg C Heart Rate Monitored 75 bpm Respiratory Rate 18 Breaths/Min Systolic Blood Pressure 117 mmHg Diastolic Blood Pressure 83 mmHg 03/27/2018 12:21 EST Temperature, Fahrenheit 97.3 Deg F Clinical Temperature, C 36.3 Deg C Heart Rate Monitored 77 bpm Systolic Blood Pressure 119 mmHg Diastolic Blood Pressure 54 mmHg LOW Mean Arterial Pressure (MAP)-BMDI 73 03/27/2018 3:00 EST Temperature Source Oral Temperature Mode Fahrenheit Temperature, Fahrenheit 97.5 Deg F Clinical Temperature, C 36.4 Deg C Heart Rate Monitored 75 bpm Systolic Blood Pressure 110 mmHg Diastolic Blood Pressure 68 mmHg Mean Arterial Pressure (MAP)-BMDI 79 Oxygen Saturation 92 % LOW , Vitals Signs (last 24 hrs) Last Charted Minimum Maximum Temp 97.5 (MAR 28 06:43) 97.5 (MAR 28 06:43) 98.1 (MAR 28 03:00) Mon HR 79 (MAR 28 08:56) 72 (MAR 27 22:29) 79 (MAR 28 08:56) Resp Rate 16 (MAR 28 06:43) 16 (MAR 27 22:29) 18 (MAR 28 03:00) SBP 92 (MAR 28 08:56) L 89 (MAR 28 06:43) 106 (MAR 27 22:29) DBP 64 (MAR 28 08:56) L 56 (MAR 28 06:43) 65 (MAR 27:29) MAP 72 (MAR 28 08:56) 66 (MAR 28 06:43) 77 (FEB 14 22:29) SpO2 97 (MAR 15 06:43) 95 (MAR 27 22:29) 97 (MAR 28 06:43) General: Alert and oriented, appears older than stated age, difficult historian. Eye: Pupils are equal, round and reactive to light, Normal conjunctiva. HENT: Normocephalic, Normal hearing, horrible dentition with multiple dental caries Neck: Supple, No jugular venous distention. Respiratory: Lungs are clear to auscultation, Respirations are non-labored, Breath sounds are equal. Cardiovascular: Normal rate, No murmur, No edema, Gastrointestinal: Soft, Non-tender, Normal bowel sounds, ileostomy draining in R abdomen , no signs of infection. Musculoskeletal: Normal range of motion, Normal strength, No deformity, PICC RUE. Integumentary: Warm, Dry, No rash. Neurologic: Alert, Oriented, No focal deficits, Cranial Nerves II-XII are grossly intact. Psychiatric: Cooperative, Appropriate mood & affect, Normal judgment. Results Review General results Interpretation: Labs (Last four charted values) WBC 8.2 (B 15) 8.8 (B 13) 9.0 (B 12) 9.3 (FEB 11) HB 12.8 (MAR 15) 11.3 (B 13) 11.4 (B 12) L 9.9 (FEB 11) HCT 41.9 (B 15) 36.0 (FEB 13) 35.4 (FEB 12) L 30.9 (FEB 11) Plt H 445 (B 15) H 462 (B 13) H 429 (B 12) 348 (FEB 11) Na 138 (B 15) 136 (B 14) 139 (FEB 13) 137 (FEB 12) K 4.1 (B 15) 4.0 (B 14) 3.9 (B 13) 3.7 (FEB 12) Cl 102 (B 15) 104 (B 14) 106 (B 13) 106 (FEB 12) CO2 21 (B 15) L 20 (B 14) 23 (FEB 13) L 20 (FEB 12) BUN H 38 (B 15) H 33 (B 14) H 29 (B 13) 20 (FEB 12) Cr H 1.20 (B 15) 0.90 (B 14) 1.00 (B 13) 0.90 (B 12) Glu R 93 (B 15) H 137 (B 14) H 140 (MAR 13) H 108 (MAR 12) Ca 9.3 (B 15) 9.0 (B 14) 8.6 (B 13) 8.8 (B 12) Lactic 1.1 (MAR 26) 1.4 (B 10) PT 11.3 (B 10) INR 1.0 (B 10) AST 23 (MAR 26) 29 (B 10) ALT 32 (MAR 26) 28 (MAR 10) ALK P 121 (MAR 26) 108 (MAR 10) T Bili 0.4 (MAR 26) 0.5 (MAR 10) PTN 6.9 (MAR 26) 6.5 (MAR 10) ALB L 2.5 (MAR 26) L 2.4 (MAR 23) Troponin <0.015 (MAR 23) Impression and Plan endocarditis, POA. CTS consulted. ID following. Group B streptococcus sepsis from 03/19/18 in 05/15 bottles OSH, POA -Rocephin 2 g every 12 hours IV her 4 weeks within 04/20/2018 per ID -We will recheck blood culture: Follow -We will consult Infectious Disease....following. Bradycardia, POA, improved -Patient admitted to the hospital with bradycardia--> pacemaker -We will hold beta radha. - Electrophysiology Cardiology consulted.--> Reprogrammed pacer - Patient will be monitored closely in telemetry. Rule out infective pacemaker, + endocarditis -pt with hx of CAD s/p CABG and Pacemaker -Patient will be evaluated by Infectious Disease and Cardiology. -She will be on intravenous antibiotics now...plan for IV rocephine as oupt Norovirus, POA, seems resolved -at OSH diagnosed 03/20 -precautions -monitor if patient has continued diarrhea, seems to be resolving. Per nursing staff no diarrhea Hypotension, resolved History of tobacco abuse. - Recommended patient to quit. Chronic obstructive pulmonary disease without acute exacerbation, POA -Patient will be on DuoNeb as needed. History of bladder cancer status post cystectomy with ileal conduit in 2006. Moderate protein deficient malnutrition, POA. Gastrointestinal prophylaxis, Pepcid. Deep venous thrombosis prophylaxis, heparin. TIME SPENT: 20 minutes. Discussed w PCP, review of chart, Discussed w RN plan..discharge to rehab tomorrow documented in this encounter Plan of Treatment Not on file documented as of this encounter Visit Diagnoses Not on filedocumented in this encounter
--- OUTSIDE RECORDS SUMMARY | 2024-10-12 19:34 | XMS_ITS | Encounter Summary ---
Author Organization [employer] ([place], [place], [place], [place]) Address [address] [place] [address] Care Team Providers Care Trucking Contractor Name Role Phone Unavailable Primary Care Provider Unavailabl e Encounter Details Date Type Department Care Team (Late st Contact Info) Description 03/29/2018 Transcribed Document [facility] Radiology [address] [place] [address] Dodie Tirado MD [address] [place] [id number] Social History Tobacco Use Types Packs/Day Years Used Date Smoking Tobacco: Never Assessed Comments Unknown Sex and Gender Information Value Date Recorded Sex Assigned at Not on file Legal Sex Female 4:39 PM CDT Gender Identity Not on file Sexual Orientation Not on file documented as of this encounter Miscellaneous Notes * Cerner Conversion Note - Dodie Tirado MD - 03/29/2018 1:22 PM EST Patient: ETHAN LOREDO Age: 57 years Sex: Female : 1960 Associated Diagnoses: None Author: DODIE TIRADO MD-INT Subjective Patient feeling better today. No fever or chills An addendum to discharge summary done Health Status Allergies: Allergic Reactions (Selected) No Known Allergies, No qualifying data available Current medications: (Selected) Inpatient Medications Ordered Ambien: 5 mg, Oral, At Bedtime, PRN: Insomnia Ativan: 0.5 mg, IV Push, Q4H, PRN: Agitation CeleXA: 20 mg, Oral, Daily DuoNeb 0.5 mg-2.5 mg/3 mL inhalation solution: 3 mL, Nebulized Inhalation, Q2H, PRN: Shortness of Breath Florastor: 250 mg, Oral, Daily Normal Saline 1,000 mL: 50 mL/Hr, IntraVENous PRAVAstatin: 20 mg, Oral, At Bedtime Pepcid: 20 mg, Oral, Daily Phenergan: 6.25 mg, IntraVENous, Q6H, PRN: Nausea Plavix: 75 mg, Oral, Daily Rocephin: 2 Gram, 100 mL/Hr, IV Piggyback, [id number] Tylenol: 650 mg, Oral, Q4H, PRN: Other (See Comment) Zofran: 4 mg, IV Push, Q4H, PRN: Nausea aspirin: 81 mg, Oral, Daily carvedilol: 3.125 mg, Oral, Daily cyclobenzaprine: 10 mg, Oral, TID, PRN: Spasms gabapentin: 300 mg, Oral, At Bedtime heparin: 5,000 Units, SubCutaneous, Q8H hydrALAZINE: 10 mg, IV Push, Q6H, PRN: Hypertension insulin lispro 76 kg - 100 k kg - 100 kg scale, SubCutaneous, AC and at Bedtime levothyroxine: 25 mcg, Oral, Daily lisinopril: 2.5 mg, Oral, Daily morphine: 2 mg, IV Push, Q2H, PRN: Pain (Severe 7-10) nicotine 21 mg/24 hr transdermal film, extended release: 1 Patch, TransDermal, Daily oxyCODONE: 5 mg, Oral, Q4H, PRN: Pain (Moderate 4-6) sodium chloride 0.9% injectable solution: 10 mL, IV Push, See Comment, PRN: Other (See Comment) Documented Medications Documented ALPRAZolam 0.5 mg oral tablet: 1 Tab, Oral, TID, 0 Refill(s) Ambien 5 mg oral tablet: 1 Tab, Oral, At Bedtime, PRN: for insomnia, 0 Refill(s) Aspirin Enteric Coated 81 mg oral delayed release tablet: 1 Tab, Oral, Daily, 0 Refill(s) CeleXA 20 mg oral tablet: 1 Tab, Oral, Daily, 0 Refill(s) Florastor 250 mg oral capsule: 1 Cap, Oral, Daily, 0 Refill(s) NovoLIN 70/30: 10 Units, SubCutaneous, QPM, for 30 Day(s), 0 Refill(s) NovoLIN 70/30: 20 Units, SubCutaneous, QAM, for 30 Day(s), 0 Refill(s) Plavix 75 mg oral tablet: 1 Tab, Oral, Daily, script sent by cardiology, 0 Refill(s) Rocephin: 2 Gram, IV Piggyback, [id number], 0 Refill(s) carvedilol 3.125 mg oral tablet: 1 Tab, Oral, Daily, 60 Tab, 0 Refill(s) gabapentin 300 mg oral capsule: 1 Cap, Oral, At Bedtime, 0 Refill(s) insulin lispro 100 units/mL injectable solution: 76 kg - 100 kg scale, SubCutaneous, AC and at Bedtime, 0 Refill(s) levothyroxine 25 mcg (0.025 mg) oral tablet: 1 Tab, Oral, Daily, 30 Tab, 0 Refill(s) lisinopril 5 mg oral tablet: 0.5 Tab, Oral, Daily, 0 Refill(s) nicotine 21 mg/24 hr transdermal film, extended release: 1 Patch, TransDermal, Daily, 0 Refill(s) pravastatin 20 mg oral tablet: 1 Tab, Oral, At Bedtime, 0 Refill(s), Home Medications (16) Active ALPRAZolam 0.5 mg oral tablet 0.5 mg = 1 Tab, Oral, TID Ambien 5 mg oral tablet 5 mg = 1 Tab, PRN, Oral, At Bedtime Aspirin Enteric Coated 81 mg oral delayed release tablet 81 mg = 1 Tab, Oral, Daily carvedilol 3.125 mg oral tablet 3.125 mg = 1 Tab, Oral, Daily CeleXA 20 mg oral tablet 20 mg = 1 Tab, Oral, Daily Florastor 250 mg oral capsule 250 mg = 1 Cap, Oral, Daily gabapentin 300 mg oral capsule 300 mg = 1 Cap, Oral, At Bedtime insulin lispro 100 units/mL injectable solution 76 kg - 100 kg scale, SubCutaneous, AC and at Bedtime levothyroxine 25 mcg (0.025 mg) oral tablet 25 mcg = 1 Tab, Oral, Daily lisinopril 5 mg oral tablet 2.5 mg = 0.5 Tab, Oral, Daily nicotine 21 mg/24 hr transdermal film, extended release 1 Patch, TransDermal, Daily NovoLIN 70/30 20 Units, SubCutaneous, QAM NovoLIN 70/30 10 Units, SubCutaneous, QPM Plavix 75 mg oral tablet 75 mg = 1 Tab, Oral, Daily pravastatin 20 mg oral tablet 20 mg = 1 Tab, Oral, At Bedtime Rocephin 2 Gram, IV Piggyback, [id number] , Medications (26) Active Scheduled: (14) aspirin EC 81 mg tab 81 mg 1 Tab, Oral, Daily carvedilol 3.125 mg tab 3.125 mg 1 Tab, Oral, Daily cefTRIAXone 2 Gram, IV Piggyback, [id number] citalopram 20 mg tab 20 mg 1 [...] Tab, Oral, Daily lisinopril 5 mg tab 2.5 mg 0.5 Tab, Oral, Daily nicotine 21 mg/24 hr patch 1 Patch, TransDermal, Daily PRAVAstatin sodium 20 mg tab 20 mg 1 Tab, Oral, At Bedtime saccharomyces boulardii 250 mg cap 250 mg 1 Cap, Oral, Daily Continuous: (1) NaCl 0.9% 1,000 mL 1,000 mL, IntraVENous, 50 mL/Hr PRN: (11) #NaCl 0.9% *FLUSH* inj 10 [...] 5 mg 1 Tab, Oral, At Bedtime Problem list: Medical CAD - Coronary artery disease / SNOMED CT 1151792378 / Confirmed Cardiomyopathy / SNOMED CT 728292868 / Confirmed HLD - Hyperlipidemia / SNOMED CT 105332005 / Confirmed HTN - Hypertension / SNOMED CT 8131474493 / Confirmed, Active Problems (14) Anxiety Atrial flutter Bladder cancer CAD - Coronary artery disease Cardiomyopathy COPD (chronic obstructive pulmonary disease) Depression Diabetes HLD - Hyperlipidemia HTN - Hypertension Hyperlipidemia Hypertension Pancreatitis Tobacco abuse Objective VS/Measurements Vitals Signs (last 24 hrs) Last Charted Minimum Maximum Temp 97.5 (MAR 29 10:45) 97.5 (MAR 29 10:45) 97.4 (MAR 28:) Mon HR 72 (MAR 29 10:45) 69 (MAR 29 04:00) 81 (MAR 29 00:00) Resp Rate 16 (MAR 29 10:45) 16 (MAR 28 16:15) 16 (MAR 28 16:15) SBP 100 (MAR 29 10:45) 99 (MAR 29 00:00) 107 (MAR 28 16:15) DBP 70 (MAR 29 10:45) 61 (MAR 29 00:00) 78 (MAR 28 18:35) MAP 83 (MAR 29 10:45) 74 (MAR 29 00:00) 91 (MAR 28 18:35) SpO2 96 (MAR 29 10:45) L 93 (MAR 29 04:00) 97 (MAR 28 18:35) General: Alert and oriented, appears older than [...] Labs (Last four charted values) WBC 8.2 (FEB 15) 8.8 (FEB 13) 9.0 (FEB 12) 9.3 (FEB 11) HB 12.8 (FEB 15) 11.3 (FEB 13) 11.4 (FEB 12) L 9.9 (FEB 11) HCT 41.9 (FEB 15) 36.0 (FEB 13) 35.4 (FEB 12) L 30.9 (FEB 11) Plt H 445 (FEB 15) H 462 (FEB 13) H 429 (FEB 12) 348 (FEB 11) Na 139 (FEB 16) 138 (FEB 15) 136 (FEB 14) 139 (FEB 13) K 3.8 (FEB 16) 4.1 (FEB 15) 4.0 (FEB 14) 3.9 (FEB 13) Cl 104 (FEB 16) 102 (FEB 15) 104 (FEB 14) 106 (FEB 13) CO2 24 (FEB 16) 21 (FEB 15) L 20 (FEB 14) 23 (FEB 13) BUN H 53 (FEB 16) H 38 (FEB 15) H 33 (FEB 14) H 29 (FEB 13) Cr H 1.30 (FEB 16) H 1.20 (FEB 15) 0.90 (FEB 14) 1.00 (FEB 13) Glu R 97 (FEB 16) 93 (FEB 15) H 137 (FEB 14) H 140 (FEB 13) Ca 9.4 (FEB 16) 9.3 (FEB 15) 9.0 (FEB 14) 8.6 (FEB 13) Lactic 1.1 (FEB 13) 1.4 (FEB 10) PT 11.3 (FEB 10) INR 1.0 (FEB 10) AST 23 (FEB 13) 29 (FEB 10) ALT 32 (FEB 13) 28 (MAR 23) ALK P 121 (MAR 26) 108 (MAR 23) T Bili 0.4 (MAR 26) 0.5 (MAR 23) PTN 6.9 (MAR 26) 6.5 (MAR 23) ALB L 2.5 (MAR 26) L 2.4 (MAR 23) Troponin <0.015 (MAR 23) Impression and Plan endocarditis, POA. CTS consulted. ID following. Group B streptococcus sepsis from 03/19/18 in 05/15 bottles OSH, POA -Rocephin 2 g every 12 hours IV her 4 weeks within 04/20/2018 per ID -Cultures noted Bradycardia, POA -Patient admitted to the hospital with bradycardia--> pacemaker - hold beta radha. - Electrophysiology Cardiology consulted.--> Reprogrammed pacer - Patient will be monitored closely in telemetry. Rule out infective pacemaker, + endocarditis -pt with hx of CAD s/p CABG and Pacemaker -Continue intravenous antibiotics now...plan for IV rocephine as oupt Norovirus, POA, -at OSH diagnosed 03/20 -Resolved -monitor if patient has continued diarrhea, seems [...] thrombosis prophylaxis, heparin. TIME SPENT: 20 minutes. plan..discharge to rehab when bed available. Discussed with pillowcase turner. documented in this encounter Plan of Treatment Not on file documented as of this encounter Visit Diagnoses Not on filedocumented in this encounter
--- OUTSIDE RECORDS SUMMARY | 2024-10-12 19:34 | XMS_ITS | Encounter Summary ---
Author Organization [employer] ([place], [place], [place], [place]) Address [address] [place] [address] Care Team Providers Care Line Welder Name Role Phone Unavailable Primary Care Provider Unavailabl e Encounter Details Date Type Department Care Team (Late st Contact Info) Description 03/23/2018 Transcribed Document [facility] [place] [address] [place] [address] ProviderZion MD [address] [place] [address] Social History Tobacco Use Types Packs/Day Years Used Date Smoking Tobacco: Never Assessed Comments Unknown Sex and Gender Information Value Date Recorded Sex Assigned at Not on file Legal Sex Female 4:39 PM CDT Gender Identity Not on file Sexual Orientation Not on file documented as of this encounter Miscellaneous Notes * Cerner Conversion Note - Historical ProviderMD - 03/23/2018 5:28 PM MANAGER OF PHOTOGRAPHY Admission History, Adult Entered On: 03/23/2018 17:38 EST Performed On: 03/23/2018 17:28 EST by Demetri Arrington Rn Advance Directive Patient has Advance Directive *Q : No, patient refuses Advance Directive information Demetri Arrington Rn - 03/23/2018 17:28 EST Anesthesia/Transfusion History Family History of Anesthesia Reaction : No prior transfusion(s) Transfusion History : Prior anesthesia without reaction Family History of Anesthesia Reaction : None Demetri Arrington Rn - 03/23/2018 17:28 EST Functional Assessment Living Situation : Home Current Home Treatments : None Demetri Arrington Rn - 03/23/2018 17:28 EST General Info Contact Password : Diomedes Michelle Family/Rep/Phys Notified of Admit : No Emergency Contact #1 : Quynh Cronin Emergency Contact #1 Emergency Contact #1 Relationship : daughter Emergency Contact #2 : Monik Pichardo Emergency Contact #2 Emergency Contact #2 Relationship : sister Primary Language : Colombian Preferred Communication Mode : Verbal Communication Barrier : None Demetri Arrington Rn - 03/23/2018 17:28 EST Fall Risk Scales ABCs Fall Injury Risk Identification : None SANTACRUZ Hx Falls Immediate/Within 3 Months : No Santacruz Secondary Diagnosis : Yes SANTACRUZ Use of Ambulatory Aid : None SANTA[place]UZ IV Therapy or IV Access : Yes Santacruz Gait/Transferring : Normal, bedrest, immobile Santacruz Mental Status : Oriented to own ability Santacruz Fall Risk Score : 35 SANT[place]UZ Fall Scale Risk Level : 25-45 Medium Risk [place] Fall Interventions : Adequate lighting, Assistive devices within reach, Bed in low position, Call device within reach, Fall prevention handout/education per facility policy, Hourly comfort/safety rounds, Non-slip footwear, Personal items within reach, Reinforced to call for assistance before getting out of bed, Room free of clutter/spills, Upper side-rails up, Wheels locked, Wires/Cords secured Demetri Arrington Rn - 03/23/2018 17:28 EST Health Histories Smoking Status : 10 or more cigarettes (1/2 pack or more)/day in last 30 days Smokeless Tobacco Status : Never Desires Tobacco Cessation Medication : No Reason for No Tobacco Cessation Medication : Refuses FDA approved medications Demetri Arrington Rn - 03/23/2018 17:28 EST Social History (As Of: 03/23/2018 17:38:07 EST) Tobacco: Use in Last 12 Months: Cigarettes. Smoking Status Current every day smoker. Years of Use: 40. Packs/Tins Daily: 1. Smoking Cessation Info Provided: Yes. (Last Updated: 02/17/2015 12:04:29 EST by SUSI BOWMAN RN) Height and Weight, Clinical Dosing Height Source : Stated Height Entry Format : [place] Height, Feet : 5 ft(Converted to: 152 cm, 60 Inch) Height, Inches : 1 Inch(Converted to: 0 ft 1 Inch, 2.54 cm) Clinical Height : 154.94 cm Weight Source : Standing scale Weight Entry Format : Metric, kilograms Weight, Kilograms : 75.4 kg(Converted to: 166 lb 4 oz) Clinical Dosing Weight : 75.4 kg Body Surface Area (BSA) : 1.75 m2 Body Mass Index : 31.4 kg/m2 (HI) [place] Body Weight : 47 kg Demetri Arrington Rn - 03/23/2018 17:28 EST Infectious Disease History Infectious Disease History : None Fever/Chills Last 48 Hours : No Travel To Regions with Travel Advisories : No Travel Outside [place] Within Last 30 Days : No Contact With Traveler to Advisory Region : No Tuberculosis Symptoms : None Demetri Arrington Rn - 03/23/2018 17:28 EST Influenza Vaccine Asmt, Adult Previous Vaccines from Immunization Schedule : No qualifying data available. Influenza Immunization, Current Season : Yes Demetri Arrington Rn - 03/23/2018 17:28 EST Pneumococcal Vaccine Previous Vaccines from Immunization Schedule : No qualifying data available. Pneumonia Immunization Received : No Pneumococcal Risk Assessment < Age 65 : None Demetri Arrington Rn - 03/23/2018 17:28 EST Nutrition History Adaptive Feeding Equipment : Diabetic Eating Poorly Due to Decreased Appetite : No Unplanned Weight Loss in Past 3-6 Months : No Malnutrition Screening Tool Total(mal) : 0 Malnutrition Screening Tool Risk Level : Patient not at risk Demetri Arrington Rn - 03/23/2018 17:28 EST Psychosocial History Do You Have a History of the Following? : Anxiety, Depression Currently in Unsafe Situation : No Tried to Harm Yourself in the Past? : No Thoughts of Harming/Killing Yourself : No Demetri Arrington Rn - 03/23/2018 17:28 EST Sleep Apnea Risk Assmt Hx of Obstructive Sleep Apnea Diagnosis : No Snore Loudly : No Tired, Fatigued, or Sleepy During Day : No Observed Stopping Breathing During Sleep : No Have/Are Being Treated for Hypertension : Yes STOP Sleep Apnea Risk Level Score : 1 STOP Sleep Apnea Risk Level : Low BMI Greater Than 35 kg/m2 : Yes Age over 50 Years Old : Yes Gender Male : No Neck Circumference Measured (cms) : 40 cm STOP-BANG Sleep Apnea Risk Level Score : 2 Neck Circumference Greater Than 40 cm : No Demetri Arrington Rn - 03/23/2018 17:28 EST Valuables and Belongings Valuables and Belongings : Clothing Clothing : Common streetwear Clothing Disposition : Bedside Demetri Arrington Rn - 03/23/2018 17:28 EST documented in this encounter Plan of Treatment Not on file documented as of this encounter Visit Diagnoses Not on filedocumented in this encounter
--- OUTSIDE RECORDS SUMMARY | 2024-10-12 19:34 | XMS_ITS | Encounter Summary ---
Author Organization [employer] ([place], [place], [place], [place]) Address [address] [place] [address] Care Team Providers Care Development Technician Name Role Phone Unavailable Primary Care Provider Unavailabl e Encounter Details Date Type Department Care Team (Late st Contact Info) Description 03/23/2018 Transcribed Document [facility] [place] Family Medicine [address] [place] [address] ProviderZion MD [address] [id number] Social History Tobacco Use Types Packs/Day Years Used Date Smoking Tobacco: Never Assessed Comments Unknown Sex and Gender Information Value Date Recorded Sex Assigned at Not on file Legal Sex Female 4:39 PM CDT Gender Identity Not on file Sexual Orientation Not on file documented as of this encounter Miscellaneous Notes * Cerner Conversion Note - Zion ProviderMD - 03/23/2018 7:32 PM STAFF DEVELOPMENT COORDINATOR DATE OF ADMISSION: 03/23/2018 PRIMARY CARE PHYSICIAN: Not listed. CHIEF COMPLAINT: Bradycardia. HISTORY OF PRESENT ILLNESS: This is a 57-year-old white female with history of bladder cancer, history of atrial flutter. Patient with history of pacemaker placement in 2016. Patient was recently diagnosed with positive blood culture and she is supposed to start her IV antibiotics today as outpatient. Patient had her IV antibiotic dose, which could not remember what was it. Then during the exam, she was found bradycardic. Patient was sent to an outside facility for further evaluation. Patient has been evaluated there and transferred to [facility]. Patient was at [facility], came in, laying in bed, mild distress, anxious. Family at bedside. Blood work was ordered when she came in, shows elevated BNP. Culture was ordered. Antibiotic was ordered. SYSTEMIC REVIEW: GENERAL: No fever or chills. HEAD: No headache or dizziness. EYES: No change of vision. EARS: No earache. NOSE: No epistaxis. THROAT: No sore throat. RESPIRATORY: Positive for shortness of breath. No cough. CARDIAC: No chest pain. GI: No nausea or vomiting. URINARY: No hematuria. MUSCULOSKELETAL: Generalized weakness. NEUROLOGICAL: No focal numbness or weakness. SKIN: No new rashes. ENDOCRINE: No heat or cold intolerance. PAST MEDICAL HISTORY: 1. History of atrial flutter. 2. History of pacemaker placement. 3. COPD. 4. Tobacco use. 5. Bladder cancer. 6. Depression/anxiety. 7. Diabetes mellitus. 8. Hypertension. 9. Hyperlipidemia. 10. History of pancreatitis. PAST SURGICAL HISTORY: 1. History of cystectomy with ileal conduit. 2. Hysterectomy. 3. Cholecystectomy. 4. Umbilical hernia repair. SOCIAL HISTORY: Patient is still a smoker. Denies any alcohol or drug abuse. FAMILY HISTORY: No heart disease. ALLERGIES: No known drug allergies. HOME MEDICATIONS: 1. Xanax 0.5 mg at bedtime as needed. 2. Aspirin 81 mg daily. 3. Coreg 3.125 mg twice daily. 4. Celexa 20 mg 2 tablets daily. 5. Gabapentin 300 mg daily. 6. Novolin 70/30, 40 units subcu daily. 7. Levothyroxine 25 mcg daily. 8. Lisinopril 2.5 mg daily. 9. Ambien 5 mg at bedtime as needed. PHYSICAL EXAMINATION: VITAL SIGNS: Blood pressure 88/47, temperature 97.4, heart rate 48, respiratory rate 18. HEAD: Atraumatic, normocephalic. Pupils round and reactive. EYES: No conjunctival injection or discharge. EARS: No discharge. NOSE: No bleeding or discharge. MOUTH: Dry. NECK: Supple. No JVD or lymphadenopathy. Full range of motion. CHEST: Poor inspiratory effort. Diminished air entry. No crackles, wheezes, or rhonchi. HEART: S1 and S2 heard. Regular rate and rhythm. ABDOMEN: Soft, obese. Audible bowel sounds. No tenderness. No guarding. No rebound tenderness with urinary bag. EXTREMITIES: No edema, erythema, or tenderness. NEUROLOGICAL: No apparent focal motor or sensory deficits. Patient is alert, awake, oriented x3. Intact cranial nerves. PSYCHIATRIC: Positive for anxiety. SKIN: No apparent rashes or induration. ENDOCRINE: No thyromegaly or tenderness. GENERAL: Patient is lying in bed, mild distress, anxious. Family at bedside. LABORATORIES AND STUDIES: Sodium 141, potassium 3.9, chloride 110, CO2 of 18, glucose 102, BUN 20, creatinine 1.0, calcium 7.8, protein 6.5, albumin 2.4, globulin 4.1, bilirubin 0.5, alkaline phosphatase 108, AST 29, ALT 28, magnesium 1.8, lactic acid 1.4. Troponin 0.015. BNP 14,382. White blood cells 9.0, hemoglobin 10.8, hematocrit 35.0, platelets 379. INR 1.0. ASSESSMENT AND PLAN: 1. Bradycardia. Patient admitted to the hospital with bradycardia. We will hold beta radha. Hold amiodarone. Electrophysiology Cardiology consulted. Patient will be monitored closely in telemetry. 2. Positive blood culture. Patient will start on intravenous vancomycin and Rocephin. We will recheck blood culture. We will consult Infectious Disease. 3. Rule out infective pacemaker. Patient will be evaluated by Infectious Disease and Cardiology. She will be on intravenous antibiotics now. 4. Hypotension. We will start intravenous fluids. 5. Anxiety. Patient will be on Ativan as needed. 6. History of tobacco abuse. Recommended patient to quit. 7. Chronic obstructive pulmonary disease. Patient will be on DuoNeb as needed. 8. Gastrointestinal prophylaxis, Pepcid. 9. Deep venous thrombosis prophylaxis, heparin. Plan discussed with ER physician, with RN, with patient. Chart was reviewed. TIME SPENT: 55 minutes. Omar Nelson M.D. Dict: 03/23/2018 19:32:41 Trans: 03/23/2018 20:42:51 CC1: Omar Nelson M.D. documented in this encounter Plan of Treatment Not on file documented as of this encounter Visit Diagnoses Not on filedocumented in this encounter
--- OUTSIDE RECORDS SUMMARY | 2024-10-12 19:34 | XMS_ITS | Encounter Summary ---
Author Organization [email or web address] ([place], [place], [place], [place]) Address [address] [place] [address] Care Team Providers Care Pull Worker Name Role Phone Unavailable Primary Care Provider Unavailabl e Encounter Details Date Type Department Care Team (Late st Contact Info) Description 03/23/2018 Transcribed Document [facility] [place] [address] [place] [address] ProviderZion MD [address] [place] [address] Social History Tobacco Use Types Packs/Day Years Used Date Smoking Tobacco: Never Assessed Comments Unknown Sex and Gender Information Value Date Recorded Sex Assigned at Not on file Legal Sex Female 4:39 PM CDT Gender Identity Not on file Sexual Orientation Not on file documented as of this encounter Miscellaneous Notes * Cerner Conversion Note - Historical ProviderMD - 03/23/2018 5:16 PM SIZE CHANGER Event Note Entered On: 03/23/2018 17:17 EST Performed On: 03/23/2018 17:16 EST by Demetri Arrington, Rn Event Note Event Date/Time : 03/23/2018 17:16 EST Description of Event : patient to rm # [id number] Kristen Nelson notified Demetri Arrington, Rn - 03/23/2018 17:16 EST Electronically signed by Jorge Alberto [facility] Conversion Nib Inspector Cerner at 05/29/2022 8:41 PM CDT documented in this encounter Plan of Treatment Not on file documented as of this encounter Visit Diagnoses Not on filedocumented in this encounter
--- OUTSIDE RECORDS SUMMARY | 2024-10-12 19:34 | XMS_ITS | Encounter Summary ---
Author Organization [employer] ([place], [place], [place], [place]) Address [address] [place] [address] Care Team Providers Care Healthcare Technician Name Role Phone Unavailable Primary Care Provider Unavailabl e Encounter Details Date Type Department Care Team (Late st Contact Info) Description 03/28/2018 Transcribed Document [facility] [place] [address] [place] [address] ProviderZion MD [address] [place], [place] [phone] Social History Tobacco Use Types Packs/Day Years Used Date Smoking Tobacco: Never Assessed Comments Unknown Sex and Gender Information Value Date Recorded Sex Assigned at Not on file Legal Sex Female 4:39 PM CDT Gender Identity Not on file Sexual Orientation Not on file documented as of this encounter Miscellaneous Notes * Cerner Conversion Note - Zion ProviderMD - 03/28/2018 7:46 AM CASE TECHNICIAN Patient: ETHAN LOREDO Age: 57 years Sex: Female : 1960 Associated Diagnoses: None Author: AJAY MARCANO MD-CAR Subjective Chief complaint NAD. Health Status Current medications: (Selected) Inpatient Medications [...] Phenergan: 6.25 mg, IntraVENous, Q6H, PRN: Nausea Rocephin: 2 Gram, 100 mL/Hr, IV Piggyback, [id number] Tylenol: 650 mg, Oral, Q4H, PRN: Other (See Comment) Zofran: 4 mg, IV Push, Q4H, PRN: Nausea aspirin: 81 mg, Oral, Daily carvedilol: 3.125 mg, Oral, Daily cyclobenzaprine: 10 mg, Oral, TID, PRN: Spasms furosemide: 40 mg, Oral, Daily gabapentin: 300 mg, Oral, At Bedtime heparin: 5,000 Units, SubCutaneous, Q8H hydrALAZINE: 10 mg, IV Push, Q6H, PRN: Hypertension insulin lispro 76 kg - 100 k kg - 100 kg scale, SubCutaneous, AC and at Bedtime levothyroxine: 25 mcg, Oral, Daily lisinopril: 5 mg, Oral, Daily morphine: 2 mg, IV Push, Q2H, PRN: Pain (Severe 7-10) nicotine 21 mg/24 hr transdermal film, extended release: 1 Patch, TransDermal, Daily oxyCODONE: 5 mg, Oral, Q4H, PRN: Pain (Moderate 4-6) sodium chloride 0.9% injectable solution: 10 mL, IV Push, See Comment, PRN: Other (See Comment) Objective VS/Measurements Vitals Signs (last 24 hrs) Last Charted Minimum Maximum Temp 97.5 (MAR 28:43) 97.5 (MAR 28:43) 98.1 (MAR 28 03:00) Mon HR 75 (MAR 28:43) 72 (MAR 27 22:29) 77 (MAR 27 12:21) Resp Rate 16 (MAR 28:43) 16 (MAR 27 22:29) 18 (MAR 27 17:31) SBP L 89 (MAR 28:43) L 89 (MAR 28 06:43) 119 (MAR 27 12:21) DBP L 56 (MAR 28:43) L 54 (MAR 27 12:21) 83 (MAR 27 17:31) MAP 66 (MAR 28:43) 66 (MAR 28 06:43) 77 (MAR 27 22:29) SpO2 97 (MAR 28 06:43) 95 (MAR 27 22:29) 97 (MAR 28 06:43) General: Alert and oriented, No acute distress. Eye: Pupils are equal, round and reactive to light, Normal conjunctiva, Vision unchanged. HENT: Normocephalic. Neck: Supple, Non-tender, No carotid bruit, No jugular venous distention. Respiratory: Lungs are clear to auscultation, Respirations are non-labored, Breath sounds are equal, Symmetrical chest wall expansion. Cardiovascular: Normal rate, Regular rhythm, No murmur, Good pulses equal in all extremities. Gastrointestinal: Soft, Non-distended, Normal bowel sounds. Musculoskeletal: Normal range of motion, Normal strength. Integumentary: Warm, Dry, [place]. Neurologic: Alert, Oriented. Psychiatric: Cooperative, Appropriate mood & affect. Results Review BROCK 03/27/18 Impression: Normal sized left ventricle. Increased left ventricular wall thickness. Normal left ventricular systolic function. Estimated EF 55 +/- 5%. Stable bioprosthetic mitral valve. Echodensities possibly due to vegetation visible on the medial (~ 4 mm) and lateral (~7 mm) aspect of prosthesis on atrial side. No mitral regurgitation. Impression and Plan IMPRESSION: Group B streptococcus with vegetation on bioprosthetic mitral valve by BROCK 03/26/18. Clinically respondig to Antibiotics EF 55%, stable bioprosthetic MV, echodensities on the medial ( 4mm ) and lateral ( 7mm )aspect of atrial side by BROCK CAD Hx CABG x 3, MAZE, and Mitral valve repair in 2015. Hx of [employer] BIV ICD 2016 Carotid Stenosis L ICA 100% R ICA > 50% HTN HLD DMII COPD with ongoing tobacco abuse h/o of Bladder CA. Ileal conduit. PLAN; 03/28/18 Conservative initial Rx w/ repeat BROCK in 4-6 is probably best option due to pt's limited comprehension. Add Plavix. Continue other current CV meds. Will sign-off, call if questions. BROCK in 4-[address] Marcano at [facility]. 03/27/18 Options discussed with pt-Definitive Rx would require redo-MV sugery/device explant-reimplant. Surgical risk is high given severe carotid dx. Conservative initial Rx w/ repeat BROCK in 4-6 is reasonable option. CTS to see/EP following. Continue current CV meds. Add Plavix if no surgery. Electronically signed by Jorge Alberto, [facility] Conversion Architectural Drafting Instructor Cerner at 05/29/2022 8:35 PM CDT documented in this encounter Plan of Treatment Not on file documented as of this encounter Visit Diagnoses Not on filedocumented in this encounter
--- OUTSIDE RECORDS SUMMARY | 2024-10-12 19:34 | XMS_ITS | Encounter Summary ---
Author Organization [employer] ([place], [place], [place]) Address [address] [place] [address] Care Team Providers Care Pattern Illustrator Name Role Phone Unavailable Primary Care Provider Unavailabl e Encounter Details Date Type Department Care Team (Late st Contact Info) Description 03/28/2018 Transcribed Document [facility] [place] [address] [place] [address] ProviderZion MD [address] [place] [address] Social History Tobacco Use Types Packs/Day Years Used Date Smoking Tobacco: Never Assessed Comments Unknown Sex and Gender Information Value Date Recorded Sex Assigned at Not on file Legal Sex Female 4:39 PM CDT Gender Identity Not on file Sexual Orientation Not on file documented as of this encounter Miscellaneous Notes * [employer] Conversion Note - Historical ProviderMD - 03/28/2018 5:00 AM WEBSPHERE PROCESS SERVER DEVELOPER Chart Check - Review Order Profile Entered On: 03/28/2018 6:02 EST Performed On: 03/28/2018 5:00 EST by Gabriela Reyes RN Chart Check Chart Reviewed Date and Time : 03/28/2018 6:02 EST Power[employer] Initiated/Discontinued as Appropriate : Yes All Active Orders Reviewed : Yes Gabriela Reyes, REGULO - 03/28/2018 6:02 EST documented in this encounter Plan of Treatment Not on file documented as of this encounter Visit Diagnoses Not on filedocumented in this encounter
--- OUTSIDE RECORDS SUMMARY | 2024-10-12 19:34 | XMS_ITS | Encounter Summary ---
Author Organization [employer] ([place], [place], [place], [place]) Address [address] [place] [address] Care Team Providers Care Wood Tile Installation Helper Name Role Phone Unavailable Primary Care Provider Unavailabl e Encounter Details Date Type Department Care Team (Late st Contact Info) Description 03/29/[address] [facility] [place] Family Medicine [address] [place] [address] ProviderZion MD [address] [place] [address] Social History Tobacco Use Types Packs/Day Years Used Date Smoking Tobacco: Never Assessed Comments Unknown Sex and Gender Information Value Date Recorded Sex Assigned at Not on file Legal Sex Female 4:39 PM CDT Gender Identity Not on file Sexual Orientation Not on file documented as of this encounter Miscellaneous Notes * Cerner Conversion Note - Zion ProviderMD - 03/29/2018 3:54 PM PNEUMATIC SYSTEM CONVEYOR OPERATOR Patient Education Materials Follows:Disease Endocarditis Endocarditis is an infection of the inner layer of the heart (endocardium) or an infection of the heart valves. Endocarditis can cause growths inside the heart or on the heart valves. Over time, these growths can destroy heart tissue and cause heart failure or problems with heart rhythm. They can also cause stroke if they break away and form a blood clot in the brain. Early treatment offers the best chance for curing endocarditis and preventing complications. What are the causes? This condition may be caused by: ??? Germs that normally live in or on your body. The germs that most commonly cause endocarditis are bacteria. ??? A fungus. What increases the risk? This condition is more likely to develop in people who have: ??? A heart defect. ??? Artificial (prosthetic) heart valves. ??? An abnormal or damaged heart valve. ??? A history of endocarditis. Having certain procedures may also increase the risk of germs getting into the heart or bloodstream. What are the signs or symptoms? Symptoms of this condition may start suddenly, or they may start slowly and gradually get worse. Symptoms include: ??? Fever. ??? Chills. ??? Night sweats. ??? Muscle aches. ??? Fatigue. ??? Weakness. ??? Shortness of breath. ??? Chest pain. ??? Blood spots in the eyes. ??? Bleeding under the fingernails or toenails. ??? Painless red spots on the palms. ??? Painful lumps in the fingertips or toes. ??? Swelling in the feet or ankles. How is this diagnosed? This condition may be diagnosed based on: ??? A physical exam. Your health care provider will listen to your heart to check for abnormal heart sounds (murmur). He or she may also use a scope to check for bleeding at the back of your eyes (retinas). ??? Tests. They may include: ? Blood tests to look for the germs that cause endocarditis. ? Imaging tests. A chest x-ray, CT scan, or echocardiogram may be used to create an image of your heart. A type of echocardiogram called a transesophageal echocardiogram may be done to look at certain heart valves more closely. How is this treated? Treatment for this condition depends on the cause of the endocarditis. Treatment may include: ??? Antibiotic medicines. These may be given through a tube into one of your veins (IV antibiotics) or taken by mouth. You may need to be on more than one antibiotic medicine. ??? Surgery to replace your heart valve. You may need surgery if: ? The endocarditis does not respond to treatment. ? You develop complications. ? Your heart valve is severely damaged. Follow these instructions at home: Medicines ??? Take [id number] and prescription medicines only as told by your health care provider. ??? If you were prescribed an antibiotic medicine, take it as told by your health care provider. Do not stop taking the antibiotic even if you start to feel better. You may need to be on intravenous antibiotics for several weeks. ??? Do notuse IV drugs unless it is part of your medical treatment. Lifestyle ??? Do notget tattoos or body piercings. ??? Practice good oral hygiene. This includes: ? Brushing and flossing regularly. ? Scheduling routine dental appointments. ??? Do notuse any products that contain nicotine or tobacco, such as cigarettes and e-cigarettes. If you need help quitting, ask your health care provider. ??? Limit alcohol intake to no more than 1 drink a day for non women and 2 drinks a day for men. One drink equals 12 oz of beer, 5 oz of wine, or 1? oz of hard liquor. General instructions ??? Let your health care provider know before you have any dental or surgical procedures. You may need to take antibiotics before the procedure. ??? Tell all of your health care providers, including your dentist, that you have had endocarditis. ??? Gradually resume your usual activities. ??? Keep all follow-up visits as told by your health care provider. This is important. Contact a health care provider if: ??? You have a fever. ??? Your symptoms do not improve. ??? Your symptoms get worse. ??? Your symptoms come back. Get help right away if: ??? You have trouble breathing. ??? You have chest pain. ??? You have symptoms of a stroke. These include: ? Sudden weakness. ? Numbness. ? Confusion. ? Trouble talking or understanding. ? A severe headache. Summary ??? Endocarditis is an infection of the inner layer of the heart (endocardium) or heart valves. It is caused by bacteria or a fungus. ??? Having certain heart conditions or procedures may increase the risk of endocarditis. ??? Antibiotics are an important treatment for endocarditis. Take these medicines as told by your health care provider. Do not stop taking them even if you start to feel better. ??? Tell all of your health care providers, including your dentist, that you have had endocarditis. This information is not intended to replace advice given to you by your health care provider. Make sure you discuss any questions you have with your health care provider. Document Released: 01/28/2006 Document Revised: 11/09/2016 Document Reviewed: 11/09/2016 [employer] Interactive Patient Education ? 2017 [employer] documented in this encounter Plan of Treatment Not on file documented as of this encounter Visit Diagnoses Not on filedocumented in this encounter
--- OUTSIDE RECORDS SUMMARY | 2024-10-12 19:34 | XMS_ITS | Encounter Summary ---
Author Organization [employer] ([place], [place], [place], [place]) Address [address] [place] [address] Care Team Providers Care Janitorial Services Supervisor Name Role Phone Unavailable Primary Care Provider Unavailabl e Encounter Details Date Type Department Care Team (Late st Contact Info) Description 03/29/2018 Transcribed Document [facility] [place] Family Medicine [address] [place] [address] ProviderZion MD [address] [place] [address] Social History Tobacco Use Types Packs/Day Years Used Date Smoking Tobacco: Never Assessed Comments Unknown Sex and Gender Information Value Date Recorded Sex Assigned at Not on file Legal Sex Female 4:39 PM CDT Gender Identity Not on file Sexual Orientation Not on file documented as of this encounter Miscellaneous Notes * Cerner Conversion Note - Historical ProviderMD - 03/29/2018 1:22 PM BALLAST REGULATOR OPERATOR Nursing Discharge Summary Entered On: 03/29/2018 13:22 EST Performed On: 03/29/2018 13:22 EST by Odalys Bush Rn-Revenue Stamp Clerk Discharge Documentation Discharge, Comment : Report: Joshua [phone] Discharge Summary Sent to : Joshua [phone] Odalys Bush Rn-Revenue Stamp Clerk - 03/29/2018 13:22 EST Electronically signed by Jorge Alberto [facility] Conversion Crown Ceramist Cerner at 05/29/2022 8:31 PM CDT documented in this encounter Plan of Treatment Not on file documented as of this encounter Visit Diagnoses Not on filedocumented in this encounter
--- OUTSIDE RECORDS SUMMARY | 2024-10-12 19:34 | XMS_ITS | Encounter Summary ---
Author Organization [employer] ([place], [place], [place], [place]) Address [address] [place] [address] Care Team Providers Care Laborer Salvage Name Role Phone Unavailable Primary Care Provider Unavailabl e Encounter Details Date Type Department Care Team (Late st Contact Info) Description 03/28/2018 Transcribed Document [facility] [place] Family Medicine [facility] [place] [address] ProviderZion MD [address] [place] [address] Social History Tobacco Use Types Packs/Day Years Used Date Smoking Tobacco: Never Assessed Comments Unknown Sex and Gender Information Value Date Recorded Sex Assigned at Not on file Legal Sex Female 4:39 PM CDT Gender Identity Not on file Sexual Orientation Not on file documented as of this encounter Miscellaneous Notes * Cerner Conversion Note - Historical ProviderMD - 03/28/2018 11:06 AM HAMMER REPAIRER Patient: ETHAN LOREDO Age: 57 Years Sex: Female : 1960 Subjective Chief Complaint: sitting up in bed, lots of questions about her infection Physical Exam (1, 6, 12) Gen: [Alert, oriented, well nourished, NAD]. Eye: [PERRL, normal conjunctiva]. HENT: [Normocephalic, normal hearing, moist oral mucosa.]. Neck: [Supple, NT, no carotid bruits, no JVD.]. Lungs: [CTA -B, non-labored respiration]. Heart: [Normal rate, regular rhythm, no M,R,G or edema]. Abdomen: [Soft, NT, ND, + bowel sounds.]. Musculoskeletal: [Normal ROM, no tenderness, swelling]. Skin: [Warm, dry, pink, no rashes, lesions]. Vitals & Measurements T: 36.4 ??C TMIN: 36.3 ??C TMAX: 36.7 ??C HR: 79(Monitored) RR: 16 BP: 92/64 SpO2: 97% Assessment/Plan 1. 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 2. BIV-ICD Med[employer]onic. 2016 - Device reprogrammed to DDD mode. 3. History of cardiomyopathy, no overt heart failure presently, 4. Urostomy /Recent UTI. - IV antibiotic treatment for this. 5. 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 - ID following; Cardiology following. 6. VHD h/o Mitral Valve Repair 2016. 7. ASCVD s/p CABG 2015 ID to continue abx through April CT and cardiology to decide timeframe on repeat BROCK Medications Inpatient Ambien, 5 mg= 1 Tab, Oral, At Bedtime, PRN aspirin, 81 mg= 1 Tab, Oral, Daily Ativan, 0.5 mg= 0.25 mL, IV Push, Q4H, PRN carvedilol, 3.125 mg= 1 Tab, Oral, Daily CeleXA, 20 mg= 1 Tab, Oral, Daily cyclobenzaprine, 10 mg= 1 Tab, Oral, TID, PRN DuoNeb 0.5 mg-2.5 mg/3 mL inhalation solution, 3 mL, Nebulized Inhalation , Q2H, PRN Florastor, 250 mg= 1 Cap, Oral, Daily gabapentin, 300 mg= 1 Cap, Oral, At Bedtime heparin, 5000 Units= 1 mL, SubCutaneous, Q8H hydrALAZINE, 10 mg= 0.5 mL, IV Push, Q6H, PRN insulin lispro 76 kg - 100 kg, 76 kg - 100 kg scale, SubCutaneous, AC and at Bedtime levothyroxine, 25 mcg= 1 Tab, Oral, Daily lisinopril, 5 mg= 1 Tab, Oral, Daily morphine, 2 mg= 1 mL, IV Push, Q2H, PRN nicotine 21 mg/24 hr transdermal film, extended release, 1 Patch, TransDermal, Daily oxyCODONE, 5 mg= 1 Tab, Oral, Q4H, PRN Pepcid, 20 mg= 1 Tab, Oral, Daily Phenergan, 6.25 mg= 0.25 mL, IntraVENous, Q6H, PRN PRAVAstatin, 20 mg= 1 Tab, Oral, At Bedtime Rocephin sodium chloride 0.9% injectable solution, 10 mL, IV Push, See Comment, PRN Tylenol, 650 mg= 2 Tab, Oral, Q4H, PRN Zofran, 4 mg= 2 mL, IV Push, Q4H, PRN Home ALPRAZolam 0.5 mg oral tablet, 0.5 mg= 1 Tab, Oral, TID Ambien 5 mg oral tablet, 5 mg= 1 Tab, Oral, At Bedtime, PRN Aspirin Enteric Coated 81 mg oral delayed release tablet, 81 mg= 1 Tab, Oral, Daily carvedilol 3.125 mg oral tablet, 3.125 mg= 1 Tab, Oral, Daily CeleXA 40 mg oral tablet, 40 mg= 1 Tab, Oral, Daily gabapentin 300 mg oral capsule, 300 mg= 1 Cap, Oral, At Bedtime levothyroxine 25 mcg (0.025 mg) oral tablet, 25 mcg= 1 Tab, Oral, Daily lisinopril 2.5 mg oral tablet, 5 mg= 2 Tab, Oral, Daily NovoLIN 70/30, 40 Units, SubCutaneous, QAM NovoLIN 70/30, 25 Units, SubCutaneous, QPM Lab Results MAR 28 06:53 138 102 H 38 / 93 4.1 21 H 1.20 \ MAR 25 06:37 \ 11.4 / 9.0 H 429 / 35.4 \ Echo TTE: 03/26/18 Impression: Normal sized left ventricle. Increased left ventricular wall thickness. Normal left ventricular systolic function. Estimated EF 55 +/- 5%. Stable bioprosthetic mitral valve. Echodensities possibly due to vegetation visible on medial (~ 4 mm) and lateral (~7 mm) aspect of prosthesis on atrial side. No mitral regurgitation. documented in this encounter Plan of Treatment Not on file documented as of this encounter Visit Diagnoses Not on filedocumented in this encounter
--- OUTSIDE RECORDS SUMMARY | 2024-10-12 19:34 | XMS_ITS | Encounter Summary ---
Author Organization [employer] ([place], [place], [place], [place]) Address [address] [place] [address] Care Team Providers Care Manual Arts Therapy Teacher Name Role Phone Unavailable Primary Care Provider Unavailabl e Encounter Details Date Type Department Care Team (Late st Contact Info) Description 03/28/2018 Transcribed Document [facility] [place] Medicine [facility] [place] [address] ProviderZion MD [address] [place] [address] Social History Tobacco Use Types Packs/Day Years Used Date Smoking Tobacco: Never Assessed Comments Unknown Sex and Gender Information Value Date Recorded Sex Assigned at Not on file Legal Sex Female 4:39 PM CDT Gender Identity Not on file Sexual Orientation Not on file documented as of this encounter Miscellaneous Notes * Cerner Conversion Note - Zion ProviderMD - 03/28/2018 12:56 PM HOT STICK MAN Patient: ETHAN CRONIN Age: 57 years Sex: Female : 1960 Associated Diagnoses: None Author: CARROLL HIGH MD-INF Basic Information CC: Sepsis bacteremia 03/19/18 4/4 bottles for Group b strep ([facility]), mitral prosthetic valve endocarditis History of Present Illness 57-year-old white female with history of bladder cancer, atrial flutter, pacemaker placement 2016, hypertension, DM2, COPD, pancreatitis, who recently had blood cultures obtained at [facility] on 03/19/18 for fever which were positive in 4 out of 4 bottles for group B Streptococcus. Patient was to start IV antibiotics but was found to have bradycardia and was admitted to [facility] on 03/23/17. I was consulted on 03/25/17. The patient had been started on vancomycin and Rocephin. Urine culture obtained at [facility] was positive for multiple bacteria consistent with contaminant, and urinalysis was consistent with possible infection. The patient has an ileal conduit since 2006 after bladder resection for bladder cancer. She does not report multiple infections. Patient denies ill contacts, zoonotic exposures, TB, HIV, or significant travel. No previous MRSA exposure. No other localizing signs or symptoms of infection. The patient is a very poor historian in terms of describing her symptoms. She says she did not feel that sick but people thought she was sick. The patient does not report any pacemaker infections in the past. She has had the pacemaker since 2016. 03/26/18 history reviewed. On Rocephin for group B strep sepsis high-grade bacteremia until 04/20/18 and reassess. BROCK pending. No high fevers. 03/27/18 history reviewed. BROCK was positive for small mitral prosthetic valve vegetation by report. No valvular dysfunction. No high fevers. Tolerating antibiotics. history reviewed. On Rocephin 2 g IV every 12 hours to continue for group B strep prosthetic mitral valve endocarditis until 05/04/18 for 6 weeks, then possible suppression. No fevers or chills. Evaluated by cardiology and CT surgery and thought to be very high risk for complications if undergoes redo sternotomy. Plan is likely to continue with IV antibiotics alone and then potentially suppress. Review of Systems Constitutional: Weakness, Fatigue, Decreased activity, No fever, No chills, No sweats. Eye: No visual disturbances. Ear/Nose/Mouth/Throat Respiratory: No shortness of breath, No cough, No sputum production. Cardiovascular: No chest pain, No palpitations, No bradycardia, No peripheral edema. Gastrointestinal: No nausea, No vomiting, No diarrhea, No abdominal pain. Genitourinary: No dysuria, No hematuria, No change in urine stream. Hematology/Lymphatics: No bruising tendency, No bleeding tendency, No swollen lymph glands. Endocrine Immunologic Musculoskeletal: No back pain, No neck pain, No joint pain, No muscle pain, No claudication, No decreased range of motion. Integumentary: No rash, No abrasions. Neurologic: No confusion, No headache. Psychiatric: No anxiety, No depression. Health Status Current medications: Medications by Classification Antimicrobials cefTRIAXone (Rocephin) - 2 Gram, IV Piggyback, [id number], infuse over 30 Minute(s), Routine Anticoagulant heparin - 5,000 Units, SubCutaneous, Inj, Q8H, Routine Cardiovascular clopidogrel (Plavix) - 75 mg, Oral, Tab, Daily, Routine carvedilol - 3.125 mg, Oral, Tab, Daily, Routine lisinopril - 5 mg, Oral, Tab, Daily, Routine Respiratory albuterol-ipratropium (DuoNeb 0.5 mg-2.5 mg/3 mL inhalation - 3 mL, Nebulized Inhalation, Inh, Q2H, PRN for Shortness of Breath, Routine promethazine (Phenergan) - 6.25 mg, IntraVENous, Inj, Q6H, PRN for Nausea, Routine GI ondansetron (Zofran) - 4 mg, IV Push, Inj, Q4H, PRN for Nausea, Routine famotidine (Pepcid) - 20 mg, Oral, Tab, Daily, Routine saccharomyces boulardii lyo (Florastor) - 250 mg, Oral, Cap, Daily, Routine Endocrine insulin lispro (insulin lispro 76 kg - 100 kg) - 76 kg - 100 kg scale, SubCutaneous, Inj, AC and at Bedtime, Routine levothyroxine - 25 mcg, Oral, Tab, Daily, Routine Neuro gabapentin - 300 mg, Oral, Cap, At Bedtime, Routine Psych citalopram (CeleXA) - 20 mg, Oral, Tab, Daily, Routine Pain Meds morphine - 2 mg, IV Push, Inj, Q2H, PRN for Pain (Severe 7-10), Routine oxyCODONE - 5 mg, Oral, Tab, Q4H, PRN for Pain (Moderate 4-6), Routine aspirin - 81 mg, Oral, EC Tab, Daily cyclobenzaprine - 10 mg, Oral, Tab, TID, PRN for Spasms, Routine acetaminophen (Tylenol) - 650 mg, Oral, Tab, Q4H, PRN for Other (See Comment), Routine Sedatives LORazepam (Ativan) - 0.5 mg, IV Push, Inj, Q4H, PRN for Agitation, Routine zolpidem (Ambien) - 5 mg, Oral, Tab, At Bedtime, PRN for Insomnia, Routine Vitamins sodium chloride (sodium chloride 0.9% injectable solution) - 10 mL, IV Push, Inj, See Comment, PRN for Other (See Comment) Other nicotine (nicotine 21 mg/24 hr transdermal film, extended re - 1 Patch, TransDermal, Patch, Daily, Routine Undefined Medications hydrALAZINE - 10 mg, IV Push, Inj, Q6H, PRN for Hypertension, Routine PRAVAstatin - 20 mg, Oral, Tab, At Bedtime, Routine Physical Examination VS/Measurements Vitals Signs (last 24 hrs) Last Charted Minimum Maximum Temp 97.5 (MAR 28 06:43) 97.5 (MAR 28 06:43) 98.1 (MAR 28 03:00) Mon HR 79 (MAR 28 08:56) 72 (MAR 27 22:29) 79 (MAR 28 08:56) Resp Rate 16 (MAR 28 06:43) 16 (MAR 27 22:29) 18 (MAR 27 17:31) SBP 92 (MAR 28 08:56) L 89 (MAR 28 06:43) 117 (MAR 27 17:31) DBP 64 (MAR 28 08:56) L 56 (MAR 28 06:43) 83 (MAR 27 17:31) MAP 72 (MAR 28 08:56) 66 (MAR 28 06:43) 77 (MAR 27 22:29) SpO2 97 (MAR 28 06:43) 95 (MAR 27 22:29) 97 (MAR 28 06:43) General: Alert and oriented, Mild distress. Eye: Extraocular movements are intact, Normal conjunctiva. HENT: Normocephalic, Oral mucosa is moist, No pharyngeal erythema. Neck: Supple, Non-tender, No jugular venous distention, No lymphadenopathy, No thyromegaly. Respiratory: Lungs are clear to auscultation, Respirations are non-labored, Breath sounds are equal. Cardiovascular: Normal rate, No gallop, Normal peripheral perfusion. Gastrointestinal: Soft, Non-tender, Non-distended, Normal bowel sounds, No organomegaly. Lymphatics: No lymphadenopathy neck, axilla, groin. Musculoskeletal: Normal range of motion, Normal strength, No tenderness. Integumentary: Warm, Dry, [place], No pallor, No rash, Left chest wall pacemaker site without erythema or fluctuance, Right arm PICC okay. Neurologic: Alert, Oriented, No focal deficits. Cognition and Speech: Oriented, Speech clear and coherent. Psychiatric: Cooperative, Appropriate mood & affect. Review / Management Results review: Labs (Last four charted values) WBC 8.2 (FEB 15) 8.8 (FEB 13) 9.0 (FEB 12) 9.3 (FEB 11) HB 12.8 (FEB 15) 11.3 (FEB 13) 11.4 (FEB 12) L 9.9 (FEB 11) HCT 41.9 (FEB 15) 36.0 (FEB 13) 35.4 (FEB 12) L 30.9 (FEB 11) Plt H 445 (FEB 15) H 462 (FEB 13) H 429 (FEB 12) 348 (FEB 11) Na 138 (FEB 15) 136 (FEB 14) 139 (FEB 13) 137 (FEB 12) K 4.1 (FEB 15) 4.0 (FEB 14) 3.9 (FEB 13) 3.7 (FEB 12) Cl 102 (FEB 15) 104 (FEB 14) 106 (FEB 13) 106 (FEB 12) CO2 21 (FEB 15) L 20 (FEB 14) 23 (FEB 13) L 20 (FEB 12) BUN H 38 (FEB 15) H 33 (FEB 14) H 29 (FEB 13) 20 (FEB 12) Cr H 1.20 (FEB 15) 0.90 (FEB 14) 1.00 (FEB 13) 0.90 (FEB 12) Glu R 93 (FEB 15) H 137 (FEB 14) H 140 (FEB 13) H 108 (FEB 12) Ca 9.3 (FEB 15) 9.0 (FEB 14) 8.6 (FEB 13) 8.8 (FEB 12) Lactic 1.1 (FEB 13) 1.4 (FEB 10) PT 11.3 (FEB 10) INR 1.0 (FEB 10) AST 23 (FEB 13) 29 (FEB 10) ALT 32 (FEB 13) 28 (FEB 10) ALK P 121 (FEB 13) 108 (FEB 10) T Bili 0.4 (MAR 26) 0.5 (MAR 23) PTN 6.9 (MAR 26) 6.5 (MAR 23) ALB L 2.5 (MAR 26) L 2.4 (MAR 23) Troponin <0.015 (MAR 23) , ACC: [id number] ORDER: Culture Blood DATE: 03/23/2018 17:49 SOURCE: Blood SITE: Reports Pre 03/27/2018 23:01 No growth at 4 days. Pre 03/26/2018 23:01 No growth at 3 days. Pre 03/25/2018 23:01 No growth at 2 days. Pre 03/24/2018 23:02 No growth at 1 day. Pre 03/24/2018 16:03 Culture less than 24 Hrs old == ACC: [id number] ORDER: Culture Blood DATE: 03/23/2018 17:49 SOURCE: Blood SITE: Reports Pre 03/27/2018 23:01 No growth at 4 days. Pre 03/26/2018 23:01 No growth at 3 days. Pre 03/25/2018 23:01 No growth at 2 days. Pre 03/24/2018 23:02 No growth at 1 day. Pre 03/24/2018 16:03 Culture less than 24 Hrs old == . Impression and Plan 1. Group B streptococcus sepsis 03/19/18 in 4 out of 4 blood culture bottles positive at [facility] (spoke to Maurice Spencer, at [facility]). BROCK consistent with mitral valve endocarditis, prosthetic. New finding. CT scan of the abdomen and pelvis 03/25 unremarkable. 1a. Group B streptococcus mitral valve endocarditis, acute. New. Bioprosthetic mitral valve placed 2015. 2. Urine culture polymicrobial positive culture from 03/19/18 likely contaminant from ileal conduit. 3. Bradycardia. 4. Hypoalbuminemia. 5. Diabetes mellitus type 2 with increased risk for infection. 6. Bladder cancer status post cystectomy with ileal conduit 2006. Increased risk for infection. 7. COPD. 8. Acute kidney injury, new. Plan: 1. Diagnostically, continue to follow patient's physical exam, CBC, CMP, CRP. 2. Therapeutically, continue Rocephin 2 g IV every 12 hours to continue until 05/04/18 for 6 weeks. Then may suppress afterwards with penicillin VK 250 mg by mouth twice a day for life. 3. CT surgery evaluation. If patient is not clinically clear her infection, may need surgery. Otherwise patient is deemed to be a very high risk for redo sternotomy at this point. Plan has been discussed with patient including side effects of medications and line. At increased risk for side effects of abx and line, readmission. Discussed with family of the patient, and discussed with Dr. Perez's service, cardiology, and Dr. Alan.. manager route: Please arrange for outpatient IV antibiotics with Rocephin 2 g IV every 12 hours until 05/04/18. Follow CBC, CMP, CRP weekly while on IV antibiotics. Fax orders to [phone], and call [phone] with final arrangements. Arrange for follow-up with me in 2 weeks post discharge. Electronically signed by Vinayak Azul Conversion Educational Administration Teacher Tata at 05/29/2022 8:48 PM CDT documented in this encounter Plan of Treatment Not on file documented as of this encounter Visit Diagnoses Not on filedocumented in this encounter
--- OUTSIDE RECORDS SUMMARY | 2024-10-12 19:34 | XMS_ITS | Encounter Summary ---
Author Organization [employer] ([place], [place], [place], [place]) Address [address] [place] [address] Care Team Providers Care Tax Commissioner Name Role Phone Unavailable Primary Care Provider Unavailabl e Encounter Details Date Type Department Care Team (Late st Contact Info) Description 03/23/2018 Transcribed Document [facility] [place] [address] [place] [address] ProviderZion MD [address] [place] [address] Social History Tobacco Use Types Packs/Day Years Used Date Smoking Tobacco: Never Assessed Comments Unknown Sex and Gender Information Value Date Recorded Sex Assigned at Not on file Legal Sex Female 4:39 PM CDT Gender Identity Not on file Sexual Orientation Not on file documented as of this encounter Miscellaneous Notes * Cerner Conversion Note - Historical ProviderMD - 03/23/2018 9:00 AM ICU SPECIALIST Consult Phone Call Documentation Entered On: 03/23/2018 18:09 EST Performed On: 03/23/2018 9:00 EST by Cande Restrepo Phone Call for Consults Consult Phone Call/Page Attempt : First call Consult Reason : infected pacemaker Physician Requesting Consult : MELY WHITNEY MD Physician Requested for Consult : HAO RUBY MD-CAR Additional Information : Spoke with Dr. Ruby on 03/23/2018 @0600 Cande Restrepo - 03/23/2018 18:08 EST documented in this encounter Plan of Treatment Not on file documented as of this encounter Visit Diagnoses Not on filedocumented in this encounter
--- OUTSIDE RECORDS SUMMARY | 2024-10-12 19:34 | XMS_ITS | Encounter Summary ---
Author Organization [employer] ([place], [place], [place], [place]) Address [address] [place] [address] Care Team Providers Care Stock Counter Name Role Phone Unavailable Primary Care Provider Unavailabl e Encounter Details Date Type Department Care Team (Late st Contact Info) Description 03/28/2018 Transcribed Document [facility] [place] [address] [place] [address] ProviderZion MD [address] [place] [address] Social History Tobacco Use Types Packs/Day Years Used Date Smoking Tobacco: Never Assessed Comments Unknown Sex and Gender Information Value Date Recorded Sex Assigned at Not on file Legal Sex Female 4:39 PM CDT Gender Identity Not on file Sexual Orientation Not on file documented as of this encounter Miscellaneous Notes * Cerner Conversion Note - Historical ProviderMD - 03/28/2018 5:00 PM TRACTOR OPERATOR BATTERY Chart Check - Review Order Profile Entered On: 03/28/2018 16:43 EST Performed On: 03/28/2018 17:00 EST by Ava Schmitt RN Chart Check Chart Reviewed Date and Time : 03/28/2018 16:43 EST Ava Schmitt RN - 03/28/2018 16:43 EST Electronically signed by Jorge Alberto [facility] Conversion 911 Emergency Services Dispatcher Cerner at 05/29/2022 8:40 PM CDT documented in this encounter Plan of Treatment Not on file documented as of this encounter Visit Diagnoses Not on filedocumented in this encounter
--- OUTSIDE RECORDS SUMMARY | 2024-10-12 19:34 | XMS_ITS | Encounter Summary ---
Author Organization [employer] ([place], [place], [place], [place]) Address [address] [place] [address] Care Team Providers Care Mining Detail Draftsperson Name Role Phone Unavailable Primary Care Provider Unavailabl e Encounter Details Date Type Department Care Team (Late st Contact Info) Description 03/28/2018 Transcribed Document [facility] [place] [address] [place] [address] ProviderZion MD [address] [place] [address] Social History Tobacco Use Types Packs/Day Years Used Date Smoking Tobacco: Never Assessed Comments Unknown Sex and Gender Information Value Date Recorded Sex Assigned at Not on file Legal Sex Female 4:39 PM CDT Gender Identity Not on file Sexual Orientation Not on file documented as of this encounter Miscellaneous Notes * Cerner Conversion Note - Historical ProviderMD - 03/28/2018 3:56 PM HYDROLOGY TEACHER Care Management Assessment/Plan Entered On: 03/28/2018 16:01 EST Performed On: 03/28/2018 15:56 EST by Ninoska Cuellar Rn-Container Filler Ed Care Management Note Anticipated Discharge Date : 04/03/2018 14:00 EST Care Management Note : Rubi's Clem states home cost for [facility] is $3.70/wk. She states they may be able to contract with SNF to provide abx at pt's cost. She asked to have SNF call Paulo at their office to see about arranging. CM called MADELYN Corona with [facility] and she will call Rubi to see if this can be arranged. Updated BS RNAva. CM will cont to follow. Care Management Note Report : Ninoska Cuellar Rn-Container Filler Ed - 03/28/18 14:57:29 Called [facility] and spoke with Chiquita and updated her on IV abx needs. SHe will check cost and call CM back to see if bed offer is still on the table. CM left for [facility] with [facility] to update her, left requesting return phone call. CM updated pt and she appears discouraged that [facility] will not accept her as a pt. She tells CM that she is considering just going home. CM also called Clem with [facility] to argueta abx at home. She states [facility] also [facility] with facility to provide them with abx at their cost. CM faxed info on pt and abx to [employer] f [phone]. CM updated BS RN, Ava. CM will cont to follow. Ninoska Cuellar, Rn-Container Filler Ed - 03/28/18 14:21:[address] Jones this and he tells CM that pt is ready for discharge from his standpoint and that ID has a plan in place for IV abx. PT does have a PICC in place. Recieved VM from [facility] with [facility] p [phone] stating they are interested in pt. CM went to BS to speak with pt to discuss bed offers. CM presented bed offers and pt tells CM that she really doesn't want to go to another facility. Pt tells CM that she only wants to go to [facility], as she has been there in the past. [facility] had not make bed offer at this time. BLAKE called and spoke with Gama in admissions at [facility] and she tells CM that per her DON, they do not believe they can meet pt's needs at this time. CM pressed for more information and Gama told CM that she would have DON call her. -CM then spoke with MADELYN Corona at [facility] and she states that pt appears too sick at this time to come to their facility. CM provided her with verbal updates, as well as faxed updates f [phone]. She states they will reevaluate now, knowing abx needs. She asked for bld cx results and CM called microbiology dept and was told that bld cx x2 from 03/23 were still negative, but would not be complete until this evening. CM informed facility of this information. CM then recieved callback from [facility] with admissions who states after rereview, they will not be able to take pt at this time due to the $1097-6287 IV rocephin cost through 05/04/[address] Diaz orders. Cm to follow for ongoing d/c planning/needs. Stew Porras, RN - 03/27/18 16:25:12 blayne from [facility] ([phone] ex [phone]) called to make bed offer. bed offers will be presented to pt 03/28. [place] [phone] Stew Porras, REGULO - 03/27/18 15:00:29 spoke to ID who states pt maybe ready for dc as early as 03/28. id and attending PA are recommending SNF. spoke with pt and her dtr, jazmine and informed them of suggestion from drs to dc to snf for iv abx. pt and dtr in agreement and referrlas made via [facility] to the following [place].... [place]. Stew Porras, REGULO - 03/27/18 10:34:34 RRS-43 + for [facility] CT consulted and per ID, infection must clear prior to any ant surgical intervention Currnelty on rocephin iv w/bld cx pending Documentation Status Complete : Yes Ninoska Cuellar, Rn-Container Filler Ed - 03/28/2018 15:56 EST documented in this encounter Plan of Treatment Not on file documented as of this encounter Visit Diagnoses Not on filedocumented in this encounter
--- OUTSIDE RECORDS SUMMARY | 2024-10-12 19:34 | XMS_ITS | Encounter Summary ---
Author Organization [employer] ([place], [place], [place], [place]) Address [address] [place] [address] Care Team Providers Care Locksmith Helper Name Role Phone Unavailable Primary Care Provider Unavailabl e Encounter Details Date Type Department Care Team (Late st Contact Info) Description 03/28/2018 Transcribed Document [facility] [place] Family Medicine [address] [place] [address] ProviderZion MD [address] [place] [address] Social History Tobacco Use Types Packs/Day Years Used Date Smoking Tobacco: Never Assessed Comments Unknown Sex and Gender Information Value Date Recorded Sex Assigned at Not on file Legal Sex Female 4:39 PM CDT Gender Identity Not on file Sexual Orientation Not on file documented as of this encounter Miscellaneous Notes * Cerner Conversion Note - Historical ProviderMD - 03/28/2018 2:01 PM DIRECTOR OF CAMPUS RECREATION Care Management Assessment/Plan Entered On: 03/28/2018 14:21 EST Performed On: 03/28/2018 14:01 EST by Ninoska Cuellar Rn-Program Management Intern Ed Care Management Note Anticipated Discharge Date : 04/03/2018 14:00 EST Care Management Note : CM spoke with Dr. Jones this am and he tells CM that pt is ready for discharge from his standpoint and that ID has a plan in place for IV abx. PT does have a PICC in place. Recieved VM from [facility] with [employer] p [phone] stating they are interested in pt. CM went to to speak with pt to discuss bed offers. CM presented bed offers and pt tells CM that she really doesn't want to go to another facility. Pt tells CM that she only wants to go to [facility], as she has been there in the past. [facility] had not make bed offer at this time. BLAKE called and spoke with Gama in admissions at [facility] and she tells CM that per her DON, they do not believe they can meet pt's needs at this time. CM pressed for more information and Gama told CM that she would have DON call her. -CM then spoke with MADELYN Corona at [facility] and she states that pt appears too sick at this time to come to their facility. CM provided her with verbal updates, as well as faxed updates f [phone]. She states they will reevaluate now, knowing abx needs. She asked for bld cx results and CM called microbiology dept and was told that bld cx x2 from 03/23 were still negative, but would not be complete until this evening. BLAKE informed facility of this information. BLAKE then recieved callback from [facility] with admissions who states after rereview, they will not be able to take pt at this time due to the $9161-4145 IV rocephin cost through 05/04/[address] Diaz orders. Cm to follow for ongoing d/c planning/needs. Care Management Note Report : Stew Porras RN - 03/27/18 16:25:12 blayne from [facility] ( ex [phone]) called to make bed offer. bed offers will be presented to pt 03/28. [place] [phone] Stew Porras RN - 03/27/18 15:00:29 spoke to ID who states pt maybe ready for dc as early as 03/28. id and attending PA are recommending SNF. spoke with pt and her dtr, jazmine and informed them of suggestion from drs to dc to snf for iv abx. pt and dtr in agreement and referrlas made via [facility] to the following counties.... [place]. Stew Porras, REGULO - 03/27/18 10:34:34 RRS-43 + for BROCK CT consulted and per ID, infection must clear prior to any ant surgical intervention Currnelty on rocephin iv w/bld cx pending Documentation Status Complete : Yes Ninoska Cuellar, Rn-Program Management Intern Ed - 03/28/2018 14:01 EST Electronically signed by Jorge Alberto, [facility] Conversion Space And Storage Clerk Cerner at 05/29/2022 8:46 PM CDT documented in this encounter Plan of Treatment Not on file documented as of this encounter Visit Diagnoses Not on filedocumented in this encounter
--- OUTSIDE RECORDS SUMMARY | 2024-10-12 19:34 | XMS_ITS | Encounter Summary ---
Author Organization [employer] ([place], [place], [place], [place]) Address [address] [place] [address] Care Team Providers Care Coin Box Collector Name Role Phone Unavailable Primary Care Provider Unavailabl e Encounter Details Date Type Department Care Team (Late st Contact Info) Description 03/29/2018 Transcribed Document [facility] [place] [facility] [place] [address] ProviderZion MD [address] [place] [address] Social History Tobacco Use Types Packs/Day Years Used Date Smoking Tobacco: Never Assessed Comments Unknown Sex and Gender Information Value Date Recorded Sex Assigned at Not on file Legal Sex Female 4:39 PM CDT Gender Identity Not on file Sexual Orientation Not on file documented as of this encounter Miscellaneous Notes * Cerner Conversion Note - Zion ProviderMD - 03/29/2018 1:35 PM OPENSTACK DEVELOPER Patient: ETHAN LOREDO Age: 57 years Sex: Female : 1960 Associated Diagnoses: None Author: HAO RUBY MD-CAR Subjective Follow up: A BIV paced Chief Complaint:no Health Status Allergies: Allergic Reactions (All) No Known Allergies, No qualifying data available [...] Rocephin: 2 Gram, 100 mL/Hr, IV Piggyback, [id number] Tylenol: 650 mg, Oral, Q4H, PRN: Other [...] at Bedtime levothyroxine: 25 mcg, Oral, Daily morphine: 2 mg, IV Push, [...] 0 Refill(s) Rocephin: 2 Gram, IV Piggyback, [id number], 0 Refill(s) carvedilol 3.125 mg oral tablet: [...] At Bedtime Rocephin 2 Gram, IV Piggyback, [id number] , Medications (25) Active Scheduled: (13) aspirin EC 81 mg tab 81 mg 1 Tab, Oral, Daily carvedilol 3.125 mg tab 3.125 mg 1 Tab, Oral, Daily cefTRIAXone 2 Gram, IV Piggyback, [id number] citalopram 20 mg tab 20 mg 1 [...] tab 25 mcg 1 Tab, Oral, Daily nicotine 21 mg/24 [...] - Coronary artery disease / SNOMED CT 5910231751 / Confirmed Cardiomyopathy / SNOMED CT 925867187 / Confirmed HLD - Hyperlipidemia / SNOMED CT 821590423 / Confirmed HTN - Hypertension / SNOMED CT 9475335437 / Confirmed Resolved: COPD - Chronic obstructive pulmonary disease / SNOMED CT 525631255, Active Problems (14) Anxiety Atrial flutter Bladder cancer CAD - Coronary artery disease Cardiomyopathy COPD (chronic obstructive pulmonary disease) Depression Diabetes HLD - Hyperlipidemia HTN - Hypertension Hyperlipidemia Hypertension Pancreatitis Tobacco abuse Objective Vitals Signs (last 24 hrs) Last Charted Minimum Maximum Temp 97.5 (MAR 16 10:45) 97.5 (MAR 16 10:45) 97.4 (MAR 15 16:15) Mon HR 72 (MAR 29 10:45) 69 (MAR 16 04:00) 81 (MAR 16 00:00) Resp Rate 16 (MAR 16 10:45) 16 (MAR 28 16:15) 16 (MAR 28 16:15) SBP 100 (MAR 29 10:45) 99 (MAR 29 00:00) 107 (MAR 28 16:15) DBP 70 (MAR 16 10:45) 61 (MAR 16 00:00) 78 (MAR 15 18:35) MAP 83 (MAR 29 10:45) 74 (MAR 16 00:00) 91 (MAR 15 18:35) SpO2 96 (MAR 16 10:45) L 93 (MAR 29 04:00) 97 (MAR 15 18:35) TELE: A BIV paced EKG: PHYSICAL EXAM:no change in exam Neuro - Neck - Heart - Lungs - Abd - Ext - Skin - Procedure Site - No Radiology Results Found Results Review MAR 29 05:58 139 104 H 53 / 97 3.8 24 H 1.30 \ Labs (Last four charted values) WBC 8.2 (MAR 15) 8.8 (B 13) 9.0 (B 12) 9.3 (B 11) HB 12.8 (MAR 15) 11.3 (B 13) 11.4 (B 12) L 9.9 (B 11) HCT 41.9 (MAR 15) 36.0 (B 13) 35.4 (FEB 12) L 30.9 (FEB [...] 13) 108 (FEB 10) T Bili 0.4 (FEB 13) 0.5 (FEB 10) PTN 6.9 (FEB 13) 6.5 (FEB 10) ALB L 2.5 (FEB 13) L 2.4 (FEB 10) Troponin <0.015 (FEB 10) CMP Results (Current Encounter/Past 24 Hours) Bun/Creatinine 40.8 HI 03/29/2018 06:25 eGFR 52 mL/min/1.73m2 LOW 03/29/2018 06:25 eGFR NonAfrican 43 mL/min/1.73m2 LOW 03/29/2018 06:25 Creatinine Level 1.30 mg/dL HI 03/29/2018 06:25 Sodium Level 139 mmol/L 03/29/2018 06:25 Potassium Level 3.8 mmol/L 03/29/2018 06:25 Chloride Level 104 mmol/L 03/29/2018 06:25 Carbon Dioxide Level 24 mmol/L 03/29/2018 06:25 Anion Gap 15 03/29/2018 06:25 Blood Urea Nitrogen 53 mg/dL HI 03/29/2018 06:25 Glucose Level 97 mg/dL 03/29/2018 06:25 Calcium Level 9.4 mg/dL 03/29/2018 06:25 Impression and Plan EP status ok. Inc bun/cr- dc lisinopril. On No diuretics documented in this encounter Plan of Treatment Not on file documented as of this encounter Visit Diagnoses Not on filedocumented in this encounter
--- OUTSIDE RECORDS SUMMARY | 2024-10-12 19:34 | XMS_ITS | Clinical Summary ---
Author Organization [facility] Address [address] [place] [address] Phone Care Team Providers Care Core Layer Machine Operator Name Role Phone Kar RAJPUT, Willa Molina Unavailable Conditions or Problems Problem Name Problem Code Onset Date Status Entry Date Provider Comment Standard Description Annotate Other obesity due to excess calories 010168738 (SNOMED CT) 06/03 Active 06/03 Sharona Annamaria Simple obesity Nicotine dependence 15740313 (SNOMED CT) 06/03 Active 06/03 Sharona Yin Nicotine dependence Coronary artery disease, S/P CABG 50641348 (SNOMED CT) 04/11 Active 04/11 Elvira Beth Coronary arteriosclerosis ARF due to infection 914652290 (SNOMED CT) 04/11 Active 04/11 Elvira Beth Acute renal failure due to ischemia Heart valve prosthesis, infection/inf lammatory reaction, subsequent encounter T82.6xxD (ICD-10-CM ) 04/11 Active 04/11 Elvira Beht 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, subsequent encounter Acute and subacute bacterial endocarditis 510465970 (SNOMED CT) 04/11 Active 04/11 Elvira Beth Acute and subacute bacterial endocarditis Group B strep sepsis A40.1 (ICD-10-CM ) 04/11 Active 04/11 Elvira Beth Sepsis due to streptococcus, group B DM Type II 73161160 (SNOMED CT) 04/11 Active 04/11 Elvira Beth Type 2 diabetes mellitus Hypoalbuminem ia 978791601 (SNOMED CT) 04/11 Active 04/11 Elvira Beth Hypoalbuminemia Medications Medication Instructions Start Date Stop Date Generic Name NDC Provider CEFTRIAXONE SODIUM 2 GM SOLR 2gm IV Q12hrs/ [facility] [phone] Plan to start at [facility] 04/18/18 to do 2xper day infusion. CEFTRIAXONE SODIUM [id number] Frida Morales PENICILLIN V POTASSIUM 250 MG TABS 1 by mouth twice a day for life PENICILLIN V POTASSIUM 15528509195 Gama Daiz MD PENICILLIN V POTASSIUM 250 MG/5ML SOLR 1 by mouth twice a day 30 days PENICILLIN V POTASSIUM 85934599258 Edie Hooks RN PENICILLIN V POTASSIUM 250 MG TABS 1 by mouth twice a day 30 days PENICILLIN V POTASSIUM 26677523606 Edie Hooks RN PENICILLIN V POTASSIUM 250 MG/5ML SOLR 1 by mouth twice a day 30 days PENICILLIN V POTASSIUM 08034247469 Gama Diaz MD PENICILLIN V POTASSIUM 250 MG TABS 1 by mouth twice a day 30 days PENICILLIN V POTASSIUM 40577926247 Gama Diaz MD CARDIZEM 120 MG TABS 1 tab once daily DILTIAZEM HCL 44957425602 Tahira Lucero VITAMIN D (CHOLECALCIFEROL ) 25 MCG (1000 UT) CAPS as instructed CHOLECALCIFEROL 93980243119 Tahira Lucero CEFTRIAXONE SODIUM 2 GM SOLR 2gm IV Q12hrs/ [facility] [phone] Plan to start at [facility] 04/18/18 to do 2xper day infusion. CEFTRIAXONE SODIUM 43268232304 Willa Lakhani RN PRAVASTATIN SODIUM 20 MG TABS Take one by mouth daily PRAVASTATIN SODIUM 21846542632 Garima Restrepo PLAVIX 75 MG TABS Take one by mouth daily CLOPIDOGREL BISULFATE 79669141705 Garima Restrepo NOVOLIN 70/30 (70-30) 100 UNIT/ML SUSP 20 units in AM, 10 units in PM INSULIN NPH ISOPHANE & REGULAR 51153988872 Garima Restrepo [facility] NICOTINE 21 MG/24HR PT24 1 patch daily NICOTINE 64273759362 Garima Floriandox LEVOTHYROXINE SODIUM 25 MCG TABS Take one by mouth daily LEVOTHYROXINE SODIUM 82163193046 Garima Floriandox HUMALOG 100 UNIT/ML SUBCUTANEOUS SOLUTION sliding scale INSULIN LISPRO 81683912943 Garima Floriandox GABAPENTIN 300 MG CAPS Take one by mouth daily GABAPENTIN 05783134384 Garima Floriandox FLORASTOR 250 MG CAPS Take one by mouth daily SACCHAROMYCES BOULARDII 60815747179 Garima Floriandox CELEXA 20 MG TABS Take one by mouth daily CITALOPRAM HYDROBROMIDE 28123988170 Garima Floriandox CARVEDILOL 3.125 MG TABS Take one by mouth daily CARVEDILOL 66497012077 Garima Lazarox ADULT ASPIRIN REGIMEN 81 MG ORAL TABLET DELAYED RELEASE Take one by mouth daily ASPIRIN 83569116925 Garima Lazarox AMBIEN 5 MG TABS Take/use as needed. ZOLPIDEM TARTRATE 17115590168 Garima Floriandox ALPRAZOLAM 0.5 MG TABS Take one by mouth 3 times daily, morning, afternoon and evening. ALPRAZOLAM 47222169317 Garima Floriandox CEFTRIAXONE SODIUM 2 GM SOLR 2gm IV Q24hrs/ [place] MD [phone] CEFTRIAXONE SODIUM 36620873720 Edie Hooks RN Medications Administered No information available. Allergies, Adverse Reactions, Alerts No information available. Results Date Name Value Unit Range Flag Description Lab Report: CBC WITH AUTO DI FFERENTIAL MONOCYTE BF 4.1 % 5.0-12.0 L monocyte s as percent of body fluid leukocytes IMMATUREGRAN 0.08 10*3/MM3 0.00-0.05 H Immature granulocytes [#/volume] in Blood % EOS AUTO 1.9 % 0.3-6.2 Eosinophil s/100 leukocytes in Blood by Automated count LYMPHOCY BF 23.8 % 19.6-45.3 lymphoc ytes as percent of body fluid leukocytes NEUTROP BF 67.8 % 42.7-76.0 Neutroph ils/100 leukocytes in Body fluid RDW 14.6 % 12.3-15.4 Erythrocyte distribution width [Ratio] by Automated count Lab Report: COMPREHENSIVE ID TABOLIC PANEL GFRC 47 mL/min/1 .73m2 >60 L Glomerular Filtration Rate Calculation Office Visit: Room 3 MEDS REVIEW Done Documenta tion of current medications (procedure) DIET ANIMAL NUTRITION TEACHER yes Dietary management education, guidance, and counseling (procedure) ORALTOBACUSE Never Tobacco smoking status SMOK STATUS Current every day smoker Tobacco smoking status Lab Report: COMPREHENSIVE ID TABOLIC PANEL, MISCELLANEOUS REFERRAL, SED R ... IMM GRANU % 0.8 % 0.0-0.6 H Immature granulocytes/100 leukocytes in Blood BASOPHIL % 0.9 % 0.0-1.0 N Basophils/ 100 leukocytes in Blood by Manual count EOSINOPHIL % 2.9 % 0.0-3.0 N Eosinoph ils/100 leukocytes in Blood by Manual count MONOCYTE % 6.0 % 0.0-12.0 N Monocytes /100 leukocytes in Blood by Automated count LYMPHS % 24.5 % 24.0-44.0 N Lymphocyte s/100 leukocytes in Blood by Automated count PMN % 64.9 % 41.0-71.0 N Neutrophils /100 leukocytes in Blood by Automated count NRBCS/100WBC 0.0 % 0.00-0.00 N nuclea anthony red blood cells as percent of blood leukocytes ABSIMMGRAN 0.10 10*3/uL 0.00-0.03 H Immature Granulocytes (absolute count) BASO# 0.11 10*3/mm3 0.00-0.20 N Basophils [#/vol ume] in Blood EOS ABSLT 0.35 10*3/uL 0.00-0.30 H Eosinophi ls [#/volume] in Blood MONOSCT AUTO 0.74 10*3/uL 0.00-1.00 N Monocy jo ann [#/volume] in Blood by Automated count LYMPHCT AUTO 3.01 10*3/mm3 0.60-4.80 N Lymph ocytes [#/volume] in Blood by Automated count ABS NEUTROPH 7.97 10*3/uL 1.50-8.30 N Neutro phils [#/volume] in Blood PLATELETS 347 10*3/mm3 150.00-45 0.00 N Platelets [#/volume] in Blood by Automated count MPV 11.1 fL 6.0-12.0 N Platelet aisha n volume [Entitic volume] in Blood by [facility] RDW-SD 50.6 fL 37.0-54.0 N Erythrocyte distribution width [Entitic volume] by Automated count RDW_ 14.5 11.3-14.5 N RDW, no uni ts MCHC 32.2 G/DL 32.0-36.0 N MCHC [Mass/ volume] by Automated count MCH 30.5 pg 27.0-31.0 N MCH [Entiti c mass] by Automated count MCV 94.7 fL 80.0-99.0 N MCV [Entiti c volume] by Automated count HCT 42.5 % 34.5-44.0 N Hematocrit [Volume Fraction] of Blood by Automated count HGB 13.7 g/dL 11.5-15.5 N Hemoglobin [Mass/volume] in Blood RBC 4.49 10*6/mm3 3.89-5.14 N Erythrocyt es [#/volume] in Blood by Automated count WBC 12.28 10*3/mm3 3.50-10.8 0 H Leukocytes [#/volume] in Blood by Automated count ESR 24 mm/h 0-30 N Erythrocyte sedimentation rate by Westergren method CRP 0.46 mg/dL 0.00-0.50 C reactive protein [Mass/volume] in Serum or Plasma Integrity Applications-NexMed-unk C-REACTIVE PROTEIN N GE use only - fo r LinkLogic import when terms are not otherwise specified EGFR IF AFA NG mL/min/1.73 mL/min/1 .73m2 >60 Glomerular filtration rate/1.73 sq M.predicted among blacks [Volume Rate/Area] in Serum, Plasma or Blood by Creatinine-based formula (MDRD) EGFR 28 mL/min/1 .73m2 >60 L Glomerular filtration rate/1.73 sq M.predicted [Volume Rate/Area] in Serum, Plasma or Blood by Creatinine-based formula (MDRD) ANIONGAP 17.0 mmol/L 3-11 H anion gap, s audrey BILI TOTAL 0.2 mg/dL 0.3-1.2 L Bilirubin. total [Mass/volume] in Serum or Plasma ALK PHOS 188 U/L 25-100 H Alkaline randy sphatase [Enzymatic activity/volume] in Blood SGOT (AST) 11 U/L 0-33 N Aspartate aminotransferase [Enzymatic activity/volume] in Serum or Plasma SGPT (ALT) 7 U/L 7-40 N Alanine aminotransferase [Enzymatic activity/volume] in Serum or Plasma A/G RATIO 1.4 g/dL 1.5-2.5 L Albumin/Aminah bulin [Mass Ratio] in Serum or Plasma GLOBULIN 3.2 Globulin [Mass/volume] in Serum ALBUMIN 4.40 g/dL 3.2-4.8 N Albumin [Mass/volume] in Serum or Plasma PROTEIN, TOT 7.6 g/dL 5.7-8.2 N Protein [Mass/volume] in Serum or Plasma CALCIUM 10.1 mg/dL 8.7-10.4 N Calcium [Moles/volume] in Serum or Plasma CO2 14.0 mmol/L 20-31 L Carbon dioxid e, total [Moles/volume] in Venous blood CHLORIDE 103 mmol/L 99-109 N Chloride [Moles/volume] in Serum or Plasma POTASSIUM 4.5 mmol/L 3.5-5.5 N Potassium [Moles/volume] in Serum or Plasma SODIUM 134 mmol/L 132-146 N Sodium [Moles/volume] in Serum or Plasma BUN/CREAT 27.6 7.0-25.0 H Urea nitrogen/Creatinine [Mass Ratio] in Serum or Plasma CREATININE 1.85 mg/dL 0.6-1.3 H Creatinine [Mass/volume] in Serum or Plasma BUN 51 mg/dL 9-23 H Urea nitrogen [Mass/volume] in Serum or Plasma GLUCOSE SER 316 mg/dL 70-100 H Glucose [Mass/volume] in Serum or Plasma Plan of Care Type Date Detail Pending order Continue oral an tibiotics Pending order CMP Pending order CBC with Differe ntial Pending order C- reactive prot ein Pending order STAT Labs Pending order CMP Pending order CBC with Differe ntial Pending order C- reactive prot ein Pending order Continue oral an tibiotics Pending order CMP Pending order CBC with Differe ntial Pending order C- reactive prot ein Pending order Continue oral an tibiotics Pending order PICC Removal Pending order Discontinue IV a ntibiotics Pending order New Oral Antibio tic Pending order Continue IV anti biotics Pending order CMP Pending order CBC with Differe ntial Pending order C- reactive prot ein Patient education Medications Patient education HOW%20TO%20STO P%20SMOKING Patient education Medications Procedures Code Procedure Name Date Entry Date CPT-Cooral Continue oral antibiotics 20 02/03/14 CPT-98026 CMP [id number] CBC with Differential 2019 CPT-12229 C- reactive protein CPT-sl STAT Labs CPT-31938 [facility] [id number] CBC with Differential 2018 CPT-05619 C- reactive protein CPT-Cooral Continue oral antibiotics 20 30/08/23 CPT-94262 CMP [id number] CBC with Differential 2018 CPT-86798 C- reactive protein CPT-Cooral Continue oral antibiotics 20 31/05/23 CPT-PICREM PICC Removal CPT-DC Discontinue IV antibiotics 2 CPT-jodi New Oral Antibiotic CPT-ca Continue IV antibiotics 2018 CPT-27251 CMP [id number] CBC with Differential 2018 CPT-13284 C- reactive protein Vital Signs Date Name Value Unit Description BMI (Body Mass Index) 30.12 kg/m2 Bod y Mass Index (Ratio) Body Temperature 97.0 [degF] temperat ure E&M BP Diastolic 70 mm[Hg] blood pressu re, diastolic BP Systolic 130 mm[Hg] blood pressur e, systolic Heart Rate 80 /min pulse rate Respiratory Rate 16 /min respirat ory rate E&M Weight Measured 159.4 [lb_av] weight E& M Weight Measured 159.4 [lb_av] weight E& M Height 61 [in_us] height E&M Immunizations No information available. Advance Directives Directive Description Start Date NO ADVANCED DIRECTIVES AT THIS TIME 2018
--- OUTSIDE RECORDS SUMMARY | 2024-10-12 19:34 | XMS_ITS | Encounter Summary ---
Author Organization [employer] ([place], [place], [place], [place]) Address [address] [place] [address] Care Team Providers Care Director Business Development Name Role Phone Unavailable Primary Care Provider Unavailabl e Encounter Details Date Type Department Care Team (Late st Contact Info) Description 03/29/2018 Transcribed Document [facility] [address] [place] [address] ProviderZion MD [address] [place], [place] [id number] Social History Tobacco Use Types Packs/Day Years Used Date Smoking Tobacco: Never Assessed Comments Unknown Sex and Gender Information Value Date Recorded Sex Assigned at Not on file Legal Sex Female 4:39 PM CDT Gender Identity Not on file Sexual Orientation Not on file documented as of this encounter Miscellaneous Notes * Cerner Conversion Note - Historical ProviderMD - 03/29/2018 1:20 PM INSTRUCTOR ROBOTICS Care Management Assessment/Plan Entered On: 03/29/2018 13:22 EST Performed On: 03/29/2018 13:20 EST by Odalys Bush Rn-Primer Waterproofing Machine AdjusterIndustrial Gas Servicer Helper Note Anticipated Discharge Date : 03/30/2018 14:00 EST Care Management Note : Confirmed with [facility] that patient can transfer today [phone]; [phone]. Spoke with patient's daughter Jazmine [phone] who [address] Hamilton advised and dishcarge pharmacy aware. Patient should be ready to transport by 15:00. Care Management Note Report : Ninoska Cuellar, Rn-Primer Waterproofing Machine Adjuster Ed - 03/28/18 20:23:22 CM faxed orders to [facility] for IV abx f [phone] per md orders. CM will need to call [facility] to notify them of final d/c plan per MD orders p [phone]. CM to follow for ongoing d/c planning/needs. Ninoska Cuellar, Rn-Primer Waterproofing Machine Adjuster Ed - 03/28/18 18:12:15 CM recieved call from Gama at [facility] stating they can take pt at their facility, but not until Saturday, as they [facility]. CM then spoke with Edie from [facility] and she again confirms they can accept pt at their facility tomorrow. CM updated pt and now pt is agreeable to go to [facility]. She also gave CM permission to speak with Jazmine joshi by phone p [phone]. CM spoke with Jazmine and she is agreeable with plan for [facility], stating its much closer to them, approx 30 min. Pt tells CM that her PCP, Dr. Davis had told her that she was not able to do IV abx from home. Discharge plan will be to go to [facility] in the am. CM updated Dr. Stauffer and he reports he will notify [facility] for tomorrow. CM will cont to follow for ongoing d/c planning/needs. Ninoska Cuellar, Rn-Primer Waterproofing Machine Adjuster Ed - 03/28/18 16:01:02 [facility] Clem states home cost for Rocephin is $3.70/wk. She states they may be able to contract with SNF to provide abx at pt's cost. She asked CM to have SNF call Paulo at their office to see about arranging. CM called MADELYN Corona with [facility] and [facility]. Updated BS RNAva. CM will cont to follow. Ninoska Cuellar, Rn-Primer Waterproofing Machine Adjuster Ed - 03/28/18 14:57:29 Called [facility] and spoke with Chiquita and updated her on IV abx needs. SHe will check cost and call CM back to see if bed offer is still on the table. CM left for Sheri with [facility] to update her, left requesting return phone call. CM updated pt and she appears discouraged that [facility] will not accept her as a pt. She tells CM that she is considering just going home. BLAKE also called Clem with [facility] to argueta abx at home. She states that [facility] may also be able to contract with facility to provide them with abx at their cost. CM faxed info on pt and abx to [facility] f [phone]. CM updated BS RN, vAa. CM will cont to follow. Ninoska Cuellar, Rn-Primer Waterproofing Machine Adjuster Ed - 03/28/18 14:21:[address] Robert bradley and he tells CM that pt is ready for discharge from his standpoint and that ID has a plan in place for IV abx. PT does have a PICC in place. Recieved VM from [facility] with [facility] p [phone] stating they are interested in pt. CM went to BS to speak with pt to discuss bed offers. CM presented bed offers and pt tells CM that she really doesn't want to go to another facility. Pt tells CM that she only wants to go to [facility], as she has been there in the past. [facility] had not make bed offer at this time. BLAKE called and spoke with Gama in admissions at [facility] and she tells CM that per her DON, they do not believe they can meet pt's needs at this time. CM pressed for more information and Gama told CM that she would have DON call her. -CM then spoke with MADELYN Corona at [facility] and she states that pt appears too sick at this time to come to their facility. BLAKE provided her with verbal updates, as well as faxed updates f [phone]. She states they will reevaluate now, knowing [...] pt at this time due to the $3026-6841 IV rocephin cost through 05/04/[address] Diaz orders. Cm to follow for ongoing d/c planning/needs. Stew Porras, REGULO - 03/27/18 16:25:12 edie from [facility] ( [facility] [phone]) called to make bed offer. bed offers will be presented to pt 03[facility]28. [phone] Stew Porras, RN - 03/27/18 15:00:29 spoke to ID who states pt maybe ready for dc as early as 03/28. id and attending PA are recommending SNF. spoke with pt and her dtr, jazmine and informed them of suggestion from drs to dc to snf for iv abx. pt and dtr in agreement and [facility] [place].... [place]. Stew Porras, REGULO - 03/27/18 10:34:34 RRS-43 + for BROCK CT consulted and per ID, infection must clear prior to any ant surgical intervention Currnelty on rocephin iv w/bld cx pending Documentation Status Complete : Yes Odalys Bush, Rn-Primer Waterproofing Machine Adjuster - 03/29/2018 13:20 EST Electronically signed by Jorge Alberto [facility] Conversion Regulatory Specialist Cerner at 05/29/2022 8:48 PM CDT documented in this encounter Plan of Treatment Not on file documented as of this encounter Visit Diagnoses Not on filedocumented in this encounter
--- OUTSIDE RECORDS SUMMARY | 2024-10-12 19:34 | XMS_ITS | Encounter Summary ---
Author Organization [employer] ([place], [place], [place], [place]) Address [address] [place] [address] Care Team Providers Care Petroleum Geologist Name Role Phone Unavailable Primary Care Provider Unavailabl e Encounter Details Date Type Department Care Team (Late st Contact Info) Description 03/26/2018 Transcribed Document [facility] [address] [place] [address] ProviderZion MD [address] [place] [address] Social History Tobacco Use Types Packs/Day Years Used Date Smoking Tobacco: Never Assessed Comments Unknown Sex and Gender Information Value Date Recorded Sex Assigned at Not on file Legal Sex Female 4:39 PM CDT Gender Identity Not on file Sexual Orientation Not on file documented as of this encounter Miscellaneous Notes * Cerner Conversion Note - Historical ProviderMD - 03/26/2018 10:40 AM DENTIST PRIVATE PRACTICE Patient: ETHAN LOREDO Age: 57 Years Sex: Female : 1960 Subjective Chief Complaint: Physical Exam (1, 6, 12) General: [Alert, oriented, well nourished, NAD]. Eye: [PERRL, normal conjunctiva]. HENT: [Normocephalic, normal hearing, moist oral mucosa, no scleral icterus]. Neck: [Supple, non-tender, no carotid bruits, no JVD.]. Lungs: [CTA -B, non-labored respiration]. Heart: [Normal rate, regular rhythm, no murmurs or edema]. Abd: [Soft, NT, ND, + bowel sounds, no masses]. Skin: [Warm, dry, pink, no rashes, lesions]. Vitals & Measurements T: 36.2 ??C TMIN: 36.2 ??C TMAX: 36.9 ??C HR: 68(Monitored) RR: 14 BP: 116/63 SpO2: 93% Assessment/Plan 1. Third-degree AV block, underlying sinus rhythm. 2. BIV -ICD Medtronic; device reprogrammed. 3. Ischemic Cardiomyopathy, no overt heart failure presently, though proBNP quite elevated. - I think programming to a DDD mode will help a lot in this regard. 4. Urostomy; recent UTI. - On IV abx. 5. Group B Strep + Plan: BROCK today. Reg Echo has shown LVEF 50-55 % T MVR fct ok Medications Inpatient Ambien, 5 mg= 1 Tab, Oral, At Bedtime, PRN aspirin, 81 mg= 1 Tab, Oral, Daily Ativan, 0.5 mg= 0.25 mL, IV Push, Q4H, PRN carvedilol, 3.125 mg= 1 Tab, Oral, Daily CeleXA, 20 mg= 1 Tab, Oral, Daily cyclobenzaprine, 10 mg= 1 Tab, Oral, TID, PRN DuoNeb 0.5 mg-2.5 mg/3 mL inhalation solution, 3 mL, Nebulized Inhalation , Q2H, PRN furosemide, 40 mg= 1 Tab, Oral, Daily gabapentin, 300 mg= 1 Cap, [...] 25 Units, SubCutaneous, QPM Lab Results MAR 25 06:37 137 106 20 / H 108 3.7 L 20 0.90 \ MAR 25 06:37 \ 11.4 / 9.0 H 429 / 35.4 \ Diagnostic Results EKG TELE: documented in this encounter Plan of Treatment Not on file documented as of this encounter Visit Diagnoses Not on filedocumented in this encounter
--- OUTSIDE RECORDS SUMMARY | 2024-10-12 19:34 | XMS_ITS | Encounter Summary ---
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 Name Role Phone Unavailable Primary Care Provider Unavailabl e Encounter Details Date Type Department Care Team (Late st Contact Info) Description 03/26/2018 Transcribed Document [facility] [place] Family Medicine [facility] [place] [address] ProviderZion MD [address] [place] [address] Social History Tobacco Use Types Packs/Day Years Used Date Smoking Tobacco: Never Assessed Comments Unknown Sex and Gender Information Value Date Recorded Sex Assigned at Not on file Legal Sex Female 4:39 PM CDT Gender Identity Not on file Sexual Orientation Not on file documented as of this encounter Miscellaneous Notes * [employer]ner Conversion Note - Zion ProviderMD - 03/26/2018 10:05 AM CONCEPT ARTIST Patient: ETHAN CRONIN Age: 57 years Sex: Female : 1960 Associated Diagnoses: None Author: CARROLL HIGH MD-INF Basic Information CC: Sepsis bacteremia 03/19/18 4/4 bottles for Group b strep ([facility]) History of Present Illness 57-year-old white female with history of bladder cancer, atrial flutter, pacemaker placement 2016, hypertension, DM2, COPD, pancreatitis, who recently had blood cultures obtained at [facility] on 03/19/18 for fever which were positive in 4 out of 4 bottles for group B Streptococcus. Patient was to start IV antibiotics but was found to have bradycardia and was admitted to [facility] on 03/23/17. I was consulted on 03/25/17. The patient had been started on vancomycin and Rocephin. Urine culture obtained at [facility] was positive for multiple bacteria consistent [...] and reassess. BROCK pending. No high fevers. Review of Systems Constitutional: Weakness, Fatigue, Decreased activity, No fever, No chills, No sweats. Eye Ear/Nose/Mouth/Throat Respiratory: No shortness of breath, No cough, No sputum production. Cardiovascular: No chest pain, No palpitations, No bradycardia. Gastrointestinal: No nausea, No vomiting, No diarrhea, [...] cefTRIAXone (Rocephin) - 2 Gram, IV Piggyback, [id number], infuse over 30 Minute(s), Routine Anticoagulant heparin - 5,000 Units, SubCutaneous, Inj, Q8H, Routine Cardiovascular carvedilol - 3.125 mg, Oral, Tab, Daily, Routine furosemide - 40 mg, Oral, Tab, Daily, Routine lisinopril - [...] - 20 mg, Oral, Tab, Daily, Routine Endocrine insulin lispro (insulin lispro [...] 24 hrs) Last Charted Minimum Maximum Temp 97.2 (MAR 26 07:00) 97.2 (MAR 26 07:00) 98.4 (FEB 12 13:26) Mon HR 68 (MAR 26:00) 68 (MAR 26:) 73 (MAR 25 18:28) Resp Rate 14 (MAR 26:) 14 (MAR 25) 14 (MAR 25) SBP 116 (MAR 26:00) 103 (MAR 25:) 121 (MAR 25:) DBP 63 (MAR 26:) L 53 (MAR 25 22:25) 70 (MAR 25) MAP 81 (MAR 26:) 69 (MAR 25:) 84 (MAR 25:) SpO2 L 93 (MAR 26:) L 93 (MAR 26:) 96 (MAR 25 18:) General: Alert and oriented, Moderate distress. Eye: Extraocular movements are intact, Normal conjunctiva. HENT: Normocephalic, Oral mucosa is moist, No pharyngeal erythema. Neck: Supple, Non-tender, No jugular venous distention, No lymphadenopathy, No thyromegaly. Respiratory: Lungs are clear to auscultation, Respirations are non-labored, Breath sounds are equal, No chest wall tenderness. Cardiovascular: Normal rate, No gallop, Normal peripheral perfusion. Gastrointestinal: Soft, Non-tender, Non-distended, Normal bowel sounds, No organomegaly. Lymphatics: No lymphadenopathy neck, axilla, groin. Musculoskeletal: Normal range of motion, Normal strength, No tenderness. Integumentary: Warm, Dry, [place], No pallor, No rash, Left chest wall pacemaker site without erythema or fluctuance, Right arm PICC okay. Neurologic: Alert, Oriented, No focal deficits. Cognition and Speech: Oriented, Speech clear and coherent. Psychiatric: Cooperative, Appropriate mood & affect. Review / Management Results review: Labs (Last four charted values) WBC 8.8 (MAR 13) 9.0 (MAR 12) 9.3 (MAR 11) 9.0 (B 10) HB 11.3 (MAR 13) 11.4 (B 12) L 9.9 (B 11) L 10.8 (B 10) HCT 36.0 (MAR 13) 35.4 (B 12) L 30.9 (FEB 11) 35.0 (FEB 10) Plt H 462 (FEB 13) H 429 (FEB 12) 348 (FEB 11) H 379 (FEB 10) Na 139 (FEB 13) 137 (FEB 12) 139 (FEB 11) 141 (FEB 10) K 3.9 (FEB 13) 3.7 (FEB 12) 3.8 (FEB 11) 3.9 (FEB 10) Cl 106 (FEB 13) 106 (FEB 12) 111 (FEB 11) 110 (FEB 10) CO2 23 (FEB 13) L 20 (FEB 12) L 17 (FEB 11) L 18 (FEB 10) BUN H 29 (FEB 13) 20 (FEB 12) H 23 (FEB 11) 20 (FEB 10) Cr 1.00 (FEB 13) 0.90 (FEB 12) 0.90 (FEB 11) 1.00 (FEB 10) Glu R H 140 (FEB 13) H 108 (FEB 12) H 120 (FEB 11) 102 (FEB 10) Ca 8.6 (FEB 13) 8.8 (FEB 12) L 7.8 (FEB 11) L 7.8 (FEB 10) Lactic 1.1 (FEB 13) 1.4 (FEB 10) [...] 2.4 (FEB 10) Troponin <0.015 (FEB 10) , ACC: [id number] ORDER: Culture Blood DATE: 03/23/2018 17:49 SOURCE: Blood SITE: Reports Pre 03/25/2018 23:01 No growth at 2 days. Pre 03/24/2018 23:02 No growth at 1 day. Pre 03/24/2018 16:03 Culture less than 24 Hrs old == ACC: [id number] ORDER: Culture Blood DATE: 03/23/2018 17:49 SOURCE: Blood SITE: Reports Pre 03/25/2018 23:01 No growth at 2 days. Pre 03/24/2018 23:02 No growth at 1 day. Pre 03/24/2018 16:03 Culture less than 24 Hrs old == . Procedure Critical Care - Code Management Assessment: Radiology Results (Last 48 hours) [id number] -- 03/23/2018 17:08 CT Abdomen Pelvis WO (03/25/2018 17:43) Result: STUDY: CT Abdomen and Pelvis without contrastCLINICAL HISTORY: Pain.DESCRIPTION: Multiple contiguous transaxial slices through the abdomenand pelvis were obtained after the oral without the intravenousadministration of contrast with coronal reformatted images. This studywas performed with techniques to keep radiation doses as low asreasonably achievable, (ALARA). Individualized dose reduction techniquesusing automated exposure control or adjustment of mA and/or kV accordingto the patient size were employed.There is no renal or ureteral stone or hydronephrosis. There is rightrenal cortical scarring. There is low-attenuation lesion in the upperpole left kidney, likely cyst. The bladder is normal in contour.The liver, spleen, pancreas and adrenal glands are unremarkable. Thebowel gas pattern is non-obstructive. There is a right lower quadrantventral hernia containing multiple bowel loops. There is a patentostomy. The aorta and iliac arteries are calcified. There arepostsurgical changes from aortoiliac stent placement. IMPRESSION:1. Patent ostomy with right lower quadrant parastomal hernia containingbowel . Impression and Plan 1. Group B streptococcus sepsis 2/6/19 in 4 out of 4 blood culture bottles positive at [facility] (spoke to Maurice Spencer, at [facility]). The high-grade bacteremia suggests intravascular source including possible pacemaker infection. Less likely from genitourinary tract source. Repeat blood cultures after antibiotics on 03/23/[address] scan of the abdomen and pelvis 03/25 unremarkable. 2. Urine culture polymicrobial positive culture from 03/19/18 likely contaminant from ileal conduit. 3. Bradycardia. 4. Hypoalbuminemia. Worse. 5. Diabetes mellitus type 2 with increased risk for infection. 6. Bladder cancer status post cystectomy with ileal conduit 2006. Increased risk for infection. 7. COPD. Plan: 1. Diagnostically, continue to follow patient's physical exam, CBC, CMP, CRP, lactic acid, pro-calcitonin, transesophageal echocardiogram. 2. Therapeutically, continue Rocephin 2 g IV every 12 hours to continue until 04/20/18 for 4 weeks. 3. If pacemaker is involved, may need explantation. Plan has been discussed with patient including side effects of medications and line. At increased risk for side effects of abx and line, readmission. Discussed with family of the patient, and discussed with Dr. Perez's service, cardiology. Electronically signed by Vinayak Az[employer] Operations Superintendent [employer] at 05/29/2022 8:32 PM CDT documented in this encounter Plan of Treatment Not on file documented as of this encounter Visit Diagnoses Not on filedocumented in this encounter
--- OUTSIDE RECORDS SUMMARY | 2024-10-12 19:34 | XMS_ITS | Encounter Summary ---
Author Organization [employer] ([place], [place], [place], [place]) Address [address] [place] [address] Care Team Providers Care Car Customizer Name Role Phone Unavailable Primary Care Provider Unavailabl e Encounter Details Date Type Department Care Team (Late st Contact Info) Description 03/29/2018 Transcribed Document [facility] [place] Family Medicine [address] [place] [address] ProviderZion MD [address] [place] [address] Social History Tobacco Use Types Packs/Day Years Used Date Smoking Tobacco: Never Assessed Comments Unknown Sex and Gender Information Value Date Recorded Sex Assigned at Not on file Legal Sex Female 4:39 PM CDT Gender Identity Not on file Sexual Orientation Not on file documented as of this encounter Miscellaneous Notes * [employer]ner Conversion Note - Historical ProviderMD - 03/29/2018 5:00 AM NUCLEAR WEAPONS SPECIALIST Chart Check - Review Order Profile Entered On: 03/29/2018 6:43 EST Performed On: 03/29/2018 5:00 EST by Tiffany Guadalupe RN Chart Check Chart Reviewed Date and Time : 03/29/2018 6:43 EST [employer] Initiated/Discontinued as Appropriate : Yes All Active Orders Reviewed : Yes Tiffany Guadalupe RN - 03/29/2018 6:43 EST Electronically signed by Jorge Alberto [facility] Conversion Medical Resident Cerner at 05/29/2022 8:36 PM CDT documented in this encounter Plan of Treatment Not on file documented as of this encounter Visit Diagnoses Not on filedocumented in this encounter
--- OUTSIDE RECORDS SUMMARY | 2024-10-12 19:35 | XMS_ITS | Encounter Summary ---
Author Organization [employer] ([place], [place], [place], [place]) Address [address] [place] [address] Care Team Providers Care Loaders Name Role Phone Unavailable Primary Care Provider Unavailabl e Encounter Details Date Type Department Care Team (Late st Contact Info) Description 03/27/2018 Transcribed Document [facility] Family Medicine [address] [place] [address] ProviderZion MD [address] [place] [address] Social History Tobacco Use Types Packs/Day Years Used Date Smoking Tobacco: Never Assessed Comments Unknown Sex and Gender Information Value Date Recorded Sex Assigned at Not on file Legal Sex Female 4:39 PM CDT Gender Identity Not on file Sexual Orientation Not on file documented as of this encounter Miscellaneous Notes * Cerner Conversion Note - Zion ProviderMD - 03/27/2018 9:26 AM 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 Admitted with sepsis; found to have vegetation on her prosthetic eric valve per BROCK on 03/26/18. Review of Systems Constitutional: Negative except as documented in history of present illness. Eye: Negative except as documented in history of present illness. Ear/Nose/Mouth/Throat: Negative except as documented in history of present illness. Respiratory: Negative except as documented in history of present illness. Cardiovascular: Negative except as documented in history of present illness. Gastrointestinal: Negative except as documented in history of present illness. Genitourinary: Negative except as documented in history of present illness. Hematology/Lymphatics: Negative except as documented in history of present illness. Endocrine: Negative except as documented in history of present illness. Immunologic: Negative except as documented in history of present illness. Musculoskeletal: Negative except as documented in history of present illness. Integumentary: Negative except as documented in history of present illness. Neurologic: Negative except as documented in history of present illness. Psychiatric: Negative except as documented in history of present illness. Health Status No qualifying data available Home Medications (10) Active ALPRAZolam 0.5 mg oral tablet 0.5 mg = 1 Tab, Oral, TID Ambien 5 mg oral tablet 5 mg = 1 Tab, PRN, Oral, At Bedtime Aspirin Enteric Coated 81 mg oral delayed release tablet 81 mg = 1 Tab, Oral, Daily carvedilol 3.125 mg oral tablet 3.125 mg = 1 Tab, Oral, Daily CeleXA 40 mg oral tablet 40 mg = 1 Tab, Oral, Daily gabapentin 300 mg oral capsule 300 mg = 1 Cap, Oral, At Bedtime levothyroxine 25 mcg (0.025 mg) oral tablet 25 mcg = 1 Tab, Oral, Daily lisinopril 2.5 mg oral tablet 5 mg = 2 Tab, Oral, Daily NovoLIN 70/30 40 Units, SubCutaneous, QAM NovoLIN 70/30 25 Units, SubCutaneous, QPM Allergies: Allergic Reactions (Selected) No Known Allergies Current medications: Medications (25) Active Scheduled: (14) aspirin EC 81 mg tab 81 mg 1 Tab, Oral, Daily carvedilol 3.125 mg tab 3.125 mg 1 Tab, Oral, Daily cefTRIAXone 2 Gram, IV Piggyback, L00LAwg citalopram 20 mg tab 20 mg 1 Tab, Oral, Daily famotidine 20 mg tab 20 mg 1 Tab, Oral, Daily furosemide 40 mg tab 40 mg 1 Tab, Oral, Daily gabapentin 300 [...] 1 Tab, Oral, At Bedtime Problem list: All Problems Anxiety / 02555697 / Confirmed Atrial flutter / 8852593 / Confirmed COPD (chronic obstructive pulmonary disease) / 24356394 / Confirmed Depression / 03852200 / Confirmed Diabetes / 294067168 / Confirmed Hyperlipidemia / 12049493 / Confirmed Hypertension / 3739423129 / Confirmed Bladder cancer / 0876791438 / Confirmed Pancreatitis / 207737592 / Confirmed Tobacco abuse / 215876130 / Confirmed Histories No education data available. Social & Psychosocial Habits Tobacco 02/17/2015 Tobacco Use Within Last Twelve Months Cigarettes Smoking Status Current every day smoker Years of Tobacco Use 40 Packs/Tins Daily 1 Smoking Cessation Information Provided Yes Past Medical History: Active CAD - Coronary artery disease (8960536354) Cardiomyopathy (897000254) HLD - Hyperlipidemia (855102418) HTN - Hypertension (8263392070) Resolved COPD - Chronic obstructive pulmonary disease (289062539): Resolved. Family History: No family history items have been selected or recorded. Procedure history: CABG in 2016 at 55 Years. MAZE in 2016 at 55 Years. Cholecystectomy; (25143). Comments: 02/17/2015 11:52 - SUSI BOWMAN, REGULO 2006 cystectomy with ileal conduit. Comments: 02/17/2015 11:52 - SUSI BOWMAN RN 2006 hysterectomy. Comments: 02/17/2015 11:52 - SUSI BOWMAN RN 2006 Mitral Valve replacment; bioprosthetic. umbilical hernia repair. Physical Examination VS/Measurements Vitals Signs (last 24 hrs) Last Charted Minimum Maximum Temp 97.5 (MAR 27 03:00) 97.5 (MAR 27 03:00) 97.6 (MAR 26 11:39) Mon HR 75 (MAR 27 03:00) 65 (MAR 26 23:15) 75 (MAR 27 03:00) Resp Rate 16 (MAR 26 18:20) 16 (MAR 26 11:39) 18 (MAR 26 16:53) SBP 110 (MAR 27 03:00) 107 (MAR 26 23:15) H 142 (MAR 26 18:20) DBP 68 (MAR 27 03:00) L 55 (MAR 26 23:15) 75 (MAR 26 18:20) MAP 79 (MAR 27 03:00) 71 (MAR 26 23:15) 83 (MAR 26 16:53) SpO2 L 92 (MAR 27 03:00) L 87 (MAR 26 23:15) 94 (MAR 26 11:39) General: Alert and oriented, No acute distress. Eye: Pupils are equal, round and reactive to light. HENT: Normocephalic. Neck: Supple, Non-tender, No carotid bruit, No jugular venous distention. Respiratory: Lungs are clear to auscultation, Respirations are non-labored, Breath sounds are equal, Symmetrical chest wall expansion. Cardiovascular: Normal rate, Regular rhythm, No murmur, No gallop, Good pulses equal in all extremities. Gastrointestinal: Soft, Non-tender, Non-distended, Normal bowel sounds. Musculoskeletal: Normal range of motion, Normal strength. Integumentary: Warm, Dry, [place]. Neurologic: Alert, Oriented. Psychiatric: Cooperative, Appropriate mood & affect. Review / Management MAR 27 07:36 136 104 H 33 / H 137 4.0 L 20 0.90 \ Cardiac Markers (Current Encounter/Past 24 Hours) No Cardiac Marker Results Found (Past 24 Hours) Blood Gases (Current Encounter/Past 24 Hours) No Blood Gas Results Found (Past 24 Hours) Radiology Results (Last 48 hours) [id number] -- 03/23/2018 17:08 CT Abdomen Pelvis WO [...] with right lower quadrant parastomal hernia containingbowel Results review: Labs (Last four charted values) WBC 8.8 (MAR 26) 9.0 (MAR 25) 9.3 (MAR 24) 9.0 (MAR 23) HB 11.3 (MAR 26) 11.4 (MAR 25) L 9.9 (MAR 24) L 10.8 (MAR 10) HCT 36.0 (MAR 26) 35.4 (MAR 25) L 30.9 (MAR 11) 35.0 (MAR 10) Plt H 462 (MAR 26) H 429 (MAR 25) 348 (FEB 11) H 379 (FEB 10) Na 136 (FEB 14) 139 (FEB 13) 137 (FEB 12) 139 (FEB 11) K 4.0 (FEB 14) 3.9 (FEB 13) 3.7 (FEB 12) 3.8 (FEB 11) Cl 104 (FEB 14) 106 (FEB 13) 106 (FEB 12) 111 (FEB 11) CO2 L 20 (FEB 14) 23 (FEB 13) L 20 (FEB 12) L 17 (FEB 11) BUN H 33 (FEB 14) H 29 (FEB 13) 20 (FEB 12) H 23 (FEB 11) Cr 0.90 (FEB 14) 1.00 (FEB 13) 0.90 (FEB 12) 0.90 (FEB 11) Glu R H 137 (FEB 14) H 140 (FEB 13) H 108 (FEB 12) H 120 (FEB 11) Ca 9.0 (FEB 14) 8.6 (FEB 13) 8.8 (FEB 12) L 7.8 (FEB 11) Lactic 1.1 (FEB 13) 1.4 (FEB 10) PT 11.3 (FEB 10) INR 1.0 (FEB 10) AST 23 (FEB 13) 29 (FEB 10) ALT 32 (FEB 13) 28 (FEB 10) ALK P 121 (FEB 13) 108 (FEB 10) T Bili 0.4 (B 13) 0.5 (FEB 10) PTN 6.9 (B 13) 6.5 (FEB 10) ALB L 2.5 (B 13) L 2.4 (FEB 10) Troponin <0.015 (FEB 10) . ECHO 03/26/18 Impression: Normal sized left ventricle. Normal left ventricular wall thickness. Visually estimated ejection fraction 55% +/- 5%. Abnormal strain pattern. Indeterminate diastolic dysfunction. Severe left atrial enlargement. Bioprosthetic mitral valve replacement. Peak gradient 24.24 mmHg. Mean gradient 8.88 mmHg. Tricuspid valve repair. Mild aortic regurgitation. No masses or thrombi are seen. BROCK 03/26/18 Impression: Normal sized left ventricle. Increased [...] 7mm )aspect of atrial side by BROCK Hx CABG x 3, MAZE, and Mitral valve repair in 2016. Hx of Medtronic BIV ICD 2016 Carotid Stenosis L ICA 100% R ICA > 50% HTN HLD DMII COPD with ongoing tobacco abuse h/o of Bladder CA. Ileal conduit. PLAN; Options discussed with pt-Definitive Rx would require redo-MV sugery/device explant-reimplant. Surgical risk is high given severe carotid dx. Conservative initial Rx w/ repeat BROCK in 4-6 is reasonable option. CTS to see/EP following. Continue current CV meds. Add Plavix if no surgery. documented in this encounter Plan of Treatment Not on file documented as of this encounter Visit Diagnoses Not on filedocumented in this encounter
--- OUTSIDE RECORDS SUMMARY | 2024-10-12 19:35 | XMS_ITS | Encounter Summary ---
Author Organization [employer] ([place], [place], [place], [place]) Address [address] [place] [address] Care Team Providers Care Magento Web Developer Name Role Phone Unavailable Primary Care Provider Unavailabl e Encounter Details Date Type Department Care Team (Late st Contact Info) Description 03/26/2018 Transcribed Document [facility] [place] Family Medicine [address] [place] [address] ProviderZion MD [address] [place] [address] Social History Tobacco Use Types Packs/Day Years Used Date Smoking Tobacco: Never Assessed Comments Unknown Sex and Gender Information Value Date Recorded Sex Assigned at Not on file Legal Sex Female 4:39 PM CDT Gender Identity Not on file Sexual Orientation Not on file documented as of this encounter Miscellaneous Notes * Cerner Conversion Note - Historical ProviderMD - 03/26/2018 2:00 AM DOWEL SANDER OPERATOR Litigation Support Analyst Details Entered On: 03/26/2018 1:20 EST Performed On: 03/26/2018 2:00 EST by Tasia Ewing, Rn-Resource Order Details Transport Mode Order Detail : Wheelchair Isolation Precautions Order Detail : Contact precautions Order Detail : 0 IV Order Detail : 1 Oxygen Order Detail : 0 Nurse Collect Order Detail : 1 Lift/Transfer : Independent Central Line Order Detail : Yes Room Service : Appropriate Arterial Line : No Tasia Ewing, Rn-Resource - 03/26/2018 1:19 EST documented in this encounter Plan of Treatment Not on file documented as of this encounter Visit Diagnoses Not on filedocumented in this encounter
--- OUTSIDE RECORDS SUMMARY | 2024-10-12 19:35 | XMS_ITS | Encounter Summary ---
Author Organization [employer] ([place], [place], [place], [place]) Address [address] [place] [address] Care Team Providers Care Transport Nurse Name Role Phone Unavailable Primary Care Provider Unavailabl e Encounter Details Date Type Department Care Team (Late st Contact Info) Description 03/25/2018 Transcribed Document [facility] [address] [place] [address] ProviderZion MD [address] [place], [place] [id number] Social History Tobacco Use Types Packs/Day Years Used Date Smoking Tobacco: Never Assessed Comments Unknown Sex and Gender Information Value Date Recorded Sex Assigned at Not on file Legal Sex Female 4:39 PM CDT Gender Identity Not on file Sexual Orientation Not on file documented as of this encounter Miscellaneous Notes * Cerner Conversion Note - Zion ProviderMD - 03/25/2018 7:28 AM CINDER PIT WORKER DATE OF CONSULTATION: 03/24/2018 ELECTROPHYSIOLOGY CONSULTATION REFERRING HOSPITALIST: Omar Nelson M.D. CONSULTING LABORATORY ADMINISTRATIVE DIRECTOR: Jorge Hawkins MD REASON FOR CONSULTATION: Bradycardia. HISTORY OF PRESENT ILLNESS: Ms. Laxmi Crnoin is 57 years old, she had a biventricular ICD implanted three years ago, unfortunately she has not had any followup for this, she did not come back to my office; I did implant this myself. It was found that she was in VVI, backup rate of 50 beats per minute and she was pacing at 50 biventricular pacing, underlying sinus rhythm with third-degree AV block. Patient has had some mild fatigue, dyspnea on exertion. The patient has a history of coronary artery disease, had bypass surgery and mitral valve repair in 2016, had atrial fibrillation as well, was on amiodarone and other cardiac medications. She does have some mild fatigue, dyspnea on exertion. No angina, orthopnea, PND, edema. Her proBNP was significantly elevated; however. The patient denies any angina, orthopnea, PND. No syncope, palpitations. No defibrillator shocks. She has been seen by Dr. Beard in the [facility]. The patient does have a history of cardiomyopathy in 2016 the LVEF was 24% and she did have third-degree AV block. At that time, she was having problems also with atrial fibrillation. She did have a maze procedure with her cardiac surgery and as far as we can tell she certainly is in sinus rhythm here today. The pacemaker was previously programmed VVI, so we do not really know a lot about the atrial rhythm heretofore. OTHER PAST HISTORY: Significant for bladder cancer, she has an urostomy and apparently she had urinary tract infection recently, she is on IV antibiotics and she was getting IV antibiotics as an outpatient. She does have a history of COPD, hypertension, diabetes mellitus, history of hysterectomy, cholecystectomy, hernia repair. CURRENT MEDICATIONS: 1. Lasix 40 mg daily. 2. Aspirin 81 mg each day. 3. Coreg 3.125 mg b.i.d. 4. Rocephin 2 g IV daily. 5. Celexa 20 mg b.i.d. 6. Heparin 5000 units subcu q. 8 h. 7. Insulin. 8. Levothyroxine 25 mcg each day. 9. Lisinopril 5 mg daily. 10. Pravastatin 20 daily. 11. Vancomycin. SOCIAL HISTORY: She smokes a half pack of cigarettes per day. No alcohol abuse. FAMILY HISTORY: Negative for reported premature coronary artery disease. REVIEW OF SYSTEMS: CONSTITUTIONAL: No fever, chills, or weight loss. EYES: No visual changes or diplopia. ENT: No swallowing problems or URI type symptoms. PULMONARY: No cough, sputum production, or hemoptysis. CARDIOVASCULAR: See above. GI: No abdominal pain, nausea, vomiting, melena, or hematochezia. NEURO: No history of stroke or focal neurological symptoms. HEMATOLOGIC: No easy bruising. SKIN: No rash. PSYCHIATRIC: Negative. PHYSICAL EXAMINATION: GENERAL: She is in no distress. VITAL SIGNS: Blood pressure 133/55, heart rate 50, respirations 18, O2 sat is 96%. There has been no fever. HEENT: Head, atraumatic. Sclerae anicteric. Mucous membranes are moist. NECK: No JVD or carotid bruits. LUNGS: Clear. HEART: Regular. No murmurs, gallops, or rubs appreciated. ABDOMEN: Soft. There is no significant truncal or lower extremity edema. NEUROLOGIC: Nonfocal. SKIN: Normal. LABORATORIES AND STUDIES: Echocardiogram from February 28, 2015 with LVEF of 24%. Laboratories on this admission, BUN 20, creatinine 1.0, potassium 3.9, hemoglobin 10.8, white blood count 9.0, platelet count of 379. [place] [address]. Liver enzymes normal. EKG shows biventricular paced rhythm with underlying sinus and heart block. Medtronic biventricular ICD was interrogated and programmed, this shows underlying heart block, patient is certainly in sinus rhythm today, no AFib. Right atrial, right ventricular, and left ventricular leads worked acceptably well, this is programmed DDDR, low rate 70, upper rate 120, defibrillator is on. ASSESSMENT: 1. Third-degree atrioventricular block, underlying sinus rhythm. 2. Biventricular internal cardioverter-defibrillator Medtronic, this device was reprogrammed, the values as stated above. 3. History of cardiomyopathy, no overt heart failure presently, although proBNP was quite elevated, I think programming to a DDD mode will help a lot in this regard. 4. Urostomy and recent urinary tract infection, she has already been getting intravenous antibiotic treatment for this. It should be mentioned that the pacemaker defibrillator site in the left chest is healed well, there is no evidence of any pocket infection present. Jorge Hawkins M.D. Dict: 03/25/2018 07:28:50 Trans: 03/25/2018 11:02:38 CC1: Jorge Hawkins M.D. CC2: Dr. Beard; [place], [place] Electronically signed by Jorge Alberto [facility] Conversion Front End Web Designer Cerner at 05/29/2022 8:43 PM CDT documented in this encounter Plan of Treatment Not on file documented as of this encounter Visit Diagnoses Not on filedocumented in this encounter
--- OUTSIDE RECORDS SUMMARY | 2024-10-12 19:35 | XMS_ITS | Encounter Summary ---
Author Organization [employer] ([place], [place], [place], [place]) Address [address] [place] [address] Care Team Providers Care Principal Associate Name Role Phone Unavailable Primary Care Provider Unavailabl e Encounter Details Date Type Department Care Team (Late st Contact Info) Description 03/28/2018 Transcribed Document [facility] Family Medicine [address] [place] [address] ProviderZion MD [address] [place] [address] Social History Tobacco Use Types Packs/Day Years Used Date Smoking Tobacco: Never Assessed Comments Unknown Sex and Gender Information Value Date Recorded Sex Assigned at Not on file Legal Sex Female 4:39 PM CDT Gender Identity Not on file Sexual Orientation Not on file documented as of this encounter Miscellaneous Notes * Cerner Conversion Note - Historical ProviderMD - 03/28/2018 8:22 PM SOLID STATE TESTER Care Management Assessment/Plan Entered On: 03/28/2018 20:23 EST Performed On: 03/28/2018 20:22 EST by Ninoska Cuellar, Rn-Hoisting Laborer Ed Care Management Note Anticipated Discharge Date : 04/03/2018 14:00 EST Care Management Note : CM faxed orders to [facility] for IV abx f [phone] per md orders. CM will need to call [facility] to notify them of final d/c plan per orders p [phone]. CM to follow for ongoing d/c planning/needs. Care Management Note Report : Ninoska Cuellar, Rn-Hoisting Laborer Ed - 03/28/18 18:12:15 CM recieved call from Gama at [facility] stating they can take pt at their facility, but not until Saturday, as they now have an agreement with [facility]. CM then spoke with Edie from [facility] and she again confirms they can accept pt at their facility tomorrow. CM updated pt and now pt is agreeable to go to [facility]. She also gave CM permission to speak with Jazmine joshi by phone p [phone]. CM spoke with Jazmine and she is agreeable with plan for [facility], stating its much closer to them, approx 30 min. Pt tells CM that her PCP, Dr. Davis had told her that she was not able to do IV abx from home. Discharge plan will be to go to [facility] in the am. CM updated Dr. Stauffer and he reports he will notify [facility] for tomorrow. CM will cont to follow for ongoing d/c planning/needs. Ninoska Cuellar, Rn-Hoisting Laborer Ed - 03/28/18 16:01:02 [facility] Clem states home cost for Rocephin is $3.70/wk. She states they may be able to contract with SNF to provide abx at pt's cost. She asked CM to have SNF call Paulo at their office to see about arranging. CM called MADELYN Corona with [facility] and she will call [facility] to see if this can be arranged. Updated BS [facility]. CM will cont to follow. Ninoska Cuellar, Rn-Hoisting Laborer Ed - 03/28/18 14:57:29 Called [facility] and spoke with Chiquita and updated her on IV abx needs. SHe will check cost and call CM back to see if bed offer is still on the table. CM left for [facility] with [facility] to update her, left requesting return phone call. CM updated pt and she appears discouraged that [facility] will not accept her as a pt. She tells CM that she is considering just going home. BLAKE also called Clem with [facility] to argueta abx at home. She states that [facility] may also be able to contract with facility to provide them with abx at their cost. CM faxed info on pt and abx to [facility] f [phone]. CM updated [facility]. CM will cont to follow. Ninoska Cuellar, Rn-Hoisting Laborer Ed - 03/28/18 14:21:[address] Jones this am and he tells CM that pt is ready for discharge from his standpoint and that ID has a plan in place for IV abx. PT does have a PICC in place. Recieved VM from [facility] with [facility] p [phone] stating they are interested in pt. CM went to BS to speak with pt to discuss bed offers. CM presented bed offers and pt tells CM that she really doesn't want to go to another facility. Pt tells CM that she only wants to go to [facility], as she has been there in the past. [facility] had not make bed offer at this time. CM called and spoke with Gama in admissions at [facility] and she tells CM that per her DON, they do not believe they can meet pt's needs at this time. CM pressed for more information and Gama told CM that she would have DON call her. -CM then spoke with MADELYN Corona at [facility] and she states that pt appears too sick at this time to come to their facility. CM provided her with verbal updates, as well as faxed updates f [phone]. She states they will reevaluate now, knowing abx needs. She asked for bld cx results and CM called microbiology dept and was told that bld cx x2 from 03/23 were still negative, but would not be complete until this evening. BLAKE informed facility of this information. CM then recieved callback from Gama with admissions who states after rereview, they will not be able to take pt at this time due to the $1887-8421 IV rocephin cost through 05/04/[address] Diaz orders. Cm to follow for ongoing d/c planning/needs. Stew Porras, RN - 03/27/18 16:25:12 edie from [facility] ([phone]) called to make bed offer. bed offers will be presented to pt 03/28. dtr will provide transportationashely [phone] Stew Porras, RN - 03/27/18 15:00:29 spoke to ID who states pt maybe ready for dc as early as 03/28. id and attending PA are recommending SNF. spoke with pt and her dtr, jazmine and informed them of suggestion from drs to dc to snf for iv abx. pt and dtr in agreement and referrlas made via [facility] to the following [place].... [place]. Stew Porras, [facility] - 03/27/18 10:34:34 RRS-43 + for BROCK CT consulted and per ID, infection must clear prior to any ant surgical intervention Currnelty on rocephin iv w/bld cx pending Documentation Status Complete : Yes Ninoska Cuellar, Rn-Hoisting Laborer Ed - 03/28/2018 20:22 EST Electronically signed by Jorge Alberto [facility] Conversion Methods Examiner Cerner at 05/29/2022 8:32 PM CDT documented in this encounter Plan of Treatment Not on file documented as of this encounter Visit Diagnoses Not on filedocumented in this encounter
--- OUTSIDE RECORDS SUMMARY | 2024-10-12 19:35 | XMS_ITS | Clinical Summary ---
Author Organization [facility] Address [facility] [place] [address] Care Team Providers Care Measurement Specialist Name Role Phone Pcp, No Primary Care Provider [phone] Source Comments This information has been disclosed to you from confidential records protectedfrom disclosure by state law. You shall make no further disclosure of thisinformation without the specific, written, and informed release of theindividual to whom it pertains, or as otherwise permitted by law. A generalauthorization for the release of medical or other information is not sufficientfor the purposes of therelease of HIV test results or diagnoses. [id number] Allergies No known active allergies Medications ALPRAZolam (XANAX) 0.5 MG tablet Take 1 tablet (0.5 mg total) by mouth 2 times a day as needed for Sleep. Active vitamin D3-vitamin K2, MK4, 1,000-100 unit-mcg Tab Take 25 mcg by mouth daily. Active citalopram (CELEXA) 20 MG tablet Take 1 tablet (20 mg total) by mouth daily. Active traZODone (DESYREL) 50 MG tablet Take 1 tablet (50 mg total) by mouth at bedtime. Active aspirin 81 MG chewable tablet Chew 1 tablet (81 mg total) by mouth daily. Active atorvastatin (LIPITOR) 40 MG tablet Take 1 tablet (40 mg total) by mouth daily. Active clopidogreL (PLAVIX) 75 mg tablet Take 1 tablet (75 mg total) by mouth daily. Active cariprazine (VRAYLAR) 1.5 mg Cap Take 1 capsule (1.5 mg total) by mouth daily. Active dapagliflozin propanediol (FARXIGA) 10 mg Tab tablet Take 1 tablet (10 mg total) by mouth daily. Active amiodarone (PACERONE) 200 MG tablet Take 1 tablet (200 mg total) by mouth daily. 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 03/29/2018 Nicotine dependence, unspecified, uncomplicated 03/29/2018 Presence of cardiac pacemaker 03/29/2018 S/P heart valve replacement with bioprosthetic v alve 03/29/2018 Personal history of malignant neoplasm of bladde r 03/29/2018 Type 2 diabetes mellitus without complications 0 03/29/2018 Insomnia 09/26/2016 Anxiety 11/23/2015 Hyperlipidemia 11/23/2015 Chronic obstructive pulmonary disease 03/07/2015 Cognitive communication deficit 03/07/2015 Essential hypertension 03/07/2015 Hypothyroidism, unspecified 03/07/2015 Presence of automatic (implantable) cardiac defi brillator 03/07/2015 Unspecified atrial fibrillation 03/07/2015 Resolved Problems Problem Noted Date Diagnosed Date Resolved Date Neoplasm of bladder 11/23/2015 03/08/19 25 Social History Tobacco Use Types Packs/Day Years Used Date Smoking Tobacco: Every Day Cigarettes Passive Smoke Exposure: Current Smokeless Tobacco: Never Tobacco Cessation:Ready to Q uit: No; Counseling Given: Yes Alcohol Use Standard Drinks/Week Comments Never 0 (1 standard drink = 0.6 oz pur e alcohol) Utilities Answer Date Recorded In the past 12 months has e [employer], gas, oil, or water [employer] threatened to shut off services in your home? No 03/05/2024 AUDIT-C Answer Date Recorded Q1: How often do you have a drink containing alc ohol? Patient declined 03/05/2024 Q2: How many drinks containi ng alcohol do you have on a typical day when you are drinking? Patient declined 03/05/2024 Q3: How often do you have si x or more drinks on one occasion? Patient declined 03/05/2024 Hunger Vital Sign Answer Date Recorded Within the past 12 months, y ou worried that your food would run out before you got the money to buy more. Never true 03/05/19 25 Within the past 12 months, t he food you bought just didn't last and you didn't have money to get more. Never true 03/05/2024 PRAPARE - Transportation Answer Date Re corded In the past 12 months, has l ack of transportation kept you from medical appointments or from getting medications? No 02/12 In the past 12 months, has l ack of transportation kept you from meetings, work, or from getting things needed for daily living? No 03/05/2024 Housing Stability Vital Sign Answer Palmer e Recorded In the last 12 months, was t here a time when you were not able to pay the mortgage or rent on time? Patient unable to answer 03/05/2024 In the past 12 months, how m any times have you moved where you were living? 0 03/05/2024 At any time in the past 12 m [facility], were you homeless or living in a fci (including now)? No 03/05/2024 Comments Unknown Sex and Gender Information Value Date Recorded Sex Assigned at Not on file Legal Sex Female 5:40 PM EST Gender Identity Not on file Sexual Orientation Not on file Last Filed Vital Signs Vital Sign Reading Time Taken Comments Blood Pressure 93/73 03/09/2024 4:16 PM EST Pulse 94 03/09/2024 4:16 PM EST Temperature 36.3 C (97.4 F) 03/09/2024 4:16 PM EST Respiratory Rate 18 03/09/2024 4:16 PM EST Oxygen Saturation 97% 03/09/2024 3:44 PM EST Inhaled Oxygen Concentration 97% 03/09/2024 3 :44 PM EST Weight 63.5 kg (140 lb) 03/06/2024 2:20 AM EST Height 154.9 cm (5' 1 ) 03/06/2024 2:20 AM EST Body Mass Index 26.45 03/06/2024 2:20 AM EST Plan of Treatment Health Maintenance Due Date Last Done Comments ASCVD Assessment 1962 Abnormal Colonoscopy Follow Up 1962 Depression Monitoring (PHQ-9) 1962 Hepatitis C Screening (MyChart) 1962 Lipid Panel 1962 Pulmonary Function Testing 1962 HIV Screening 1980 Cervical Cancer Screening/Pa p Smear (MyChart) 1992 Immunization: DTaP/Tdap/Td ( 1 - Tdap) 04/18/1996 04/17/1996 Mammogram (MyChart) 2002 Cologuard (FIT-DNA) 06/04/2007 Colonoscopy 06/04/2007 Colorectal Cancer Screening (MyChart) 06/04/2007 Stool Testing (gFOBT) 06/04/2007 Immunization: Zoster (1 of 2) 2012 Lung Cancer Screening 2012 Immunization: Pneumococcal ( 2 of 2 - PPSV23, PCV20, or PCV21) 02/21/2017 12/27/2016 Immunization: RSV (Adult) (1 - Risk 60-74 years 1-dose series) 2022 Immunization: COVID-19 ( - season) 2023 Diabetic Eye Exam (MyChart) 03/08/2024 Thyroid Function/TSH (MyChart) 06/04/2024 03/06/2024 Hemoglobin A1C Monitoring (MyChart) 09/03/2024 03/06/2024 Immunization: Influenza (MyC banuelos) (#1) 2024 11/29/2023, 12/05/2022, 12/18/2021, Additional history exists Tobacco Cessation Readiness 03/05/2025 03/05/2024 Urine Albumin/Creatinine Ratio 03/07/2025 03/07/2024 Renal Function/GFR 03/09/2025 03/09/2024, 0 03/08/2024, 03/07/2024, Additional history exists Procedures Procedure Name Priority Date/Time Associated Diagnosis Comments RENAL FUNCTION PANEL W/EGFR Routine 03/09/2024 2:28 AM EST PROTEIN / CREATININE RATIO, URINE Routine 03/07/2024 11:26 PM EST THYROID FUNCTION CASCADE Routine 03/06/2024 1:44 PM EST HEMOGLOBIN A1C Routine 03/06/2024 5:42 AM EST from Last 3 Months or Most Recently Relevant to Health Maintenance Results * (ABNORMAL) Renal Function Panel w/EGFR (03/09/2024 2:28 AM EST) Sodium 142 133 - 146 mmol/L 03/09/2024 4:11 AM EST [facility] Potassium 3.8 3.5 - 5.3 mmol/L 03/09/2024 4:11 AM EST [facility] Chloride 107 98 - 110 mmol/L 03/09/2024 4:11 AM EST [facility] CO2 25 21 - 33 mmol/L 03/09/2024 4:11 AM EST [facility] Anion Gap 10 3 - 16 mmol/L 03/09/2024 4:11 AM EST [facility] BUN 45(H) 7 - 25 mg/dL 03/09/2024 4:11 AM EST [facility] Creatinine 1.84(H) 0.60 - 1.30 mg/dL 03/09/2024 4:11 AM EST [facility] Glucose 85 70 - 100 mg/dL 03/09/2024 4:11 AM EST [facility] Calcium 8.0(L) 8.6 - 10.3 mg/dL 03/09/2024 4:11 AM EST [facility] Phosphorus 2.1 2.1 - 4.7 mg/dL 03/09/2024 4:11 AM EST [facility] Albumin 2.9(L) 3.5 - 5.7 g/dL 03/09/2024 4:11 AM EST [facility] Osmolality, Calculated 305 278 - 305 mOsm/kg 03/09/2024 4:11 AM EST [facility] EGFR 31 03/09/2024 4:11 AM EST [facility] Comment:As of 2021, the estimated GFR is calculated using the 2020 Chronic Kidney Disease Epidemiology Collaboration (CKD-EPI) equation. In line with the NKF-ASN Task Force Recommendations, this equation does not include a coefficient for race. A single eGFR value is calculated for each patient. The reference interval is >60 mL/min/1.73m2. eGFR values greater than 90 will be reported as >90mL/min/1.73m2. Reference: Avinash C, Ion M, Zacarias DC, Chuck ND, Justus [place], Elinor LA, et al. A Unifying Approach for GFR Estimation: Recommendations of the NKF-ASN Task Force on Reassessing the inclusion of Race in Diagnosing Kidney Disease. Am J Kidney Dis. 2020. Plasma 03/09/2024 2:28 AM EST 03/09/2024 3:39 AM EST Tate Castro MD LAB BLOOD ORDERABLES Fin al Result Performing Organization Address [facility] Co de Phone Number [facility] [address] [facility] * Protein / creatinine ratio, urine (03/07/2024 11:26 PM EST) Creatinine, Urine 28.30 mg/dL 03/07/2024 11:52 PM EST [facility] Comment:Reference range not established for this test. Total Protein, Ur 52 mg/dL 03/07/2024 11:52 PM EST [facility] Comment:Reference range not established for this test. Prot/Creat Ratio, Ur 1.84 ratio 03/07/2024 11:52 PM EST [facility] Urine 03/07/2024 11:2 6 PM EST 03/07/2024 11:36 PM EST Tate Castro MD URINE ORDERABLES Final R esult Performing Organization Address [facility] Co de Phone Number [facility] [address] * (ABNORMAL) Thyroid Function [place] (03/06/2024 1:44 PM EST) TSH 6.15(H) 0.45 - 4.12 uIU/mL 03/06/2024 2:33 PM EST [facility] Serum 03/06/2024 1:44 PM EST 03/06/2024 1:50 PM EST us Angelo Chaudhry CNP LAB BLOOD ORDERABLES Final Result Performing Organization Address [facility] Co de Phone Number [facility] [address] * (ABNORMAL) Hemoglobin A1c (03/06/2024 5:42 AM EST) Hemoglobin A1C 6.4(H) 4.0 - 5.6 % 03/06/2024 1:13 PM EST [facility] Comment: Hemoglobin A1c Interpretation Guidelines: Normal: <5.7% Prediabetes: 5.7-6.4% Diabetes: >6.4% Diagnosis requires two independent tests unless clinical diagnosis is clear. Some clinical conditions, particularly anemias and hemoglobinopathies, may interfere with the diagnostic accuracy of hemoglobin A1c. The recommended goal for diabetic glycemic control (Hemoglobin A1c <7.0%) should be individualized based on duration of diabetes, age/life expectancy, comorbid conditions, known CVD or advanced microvascular complications, hypoglycemia unawareness, and other individual patient considerations. Whole Blood 03/06/2024 5:42 AM EST 03/06/2024 5:52 AM EST us Caroline Sky PA LAB BLOOD ORDERABLES Bindu l Result Performing Organization Address City/[facility] Co de Phone Number [facility] [address] from Last 3 Months or Most Recently Relevant to Health Maintenance Insurance [employer] G[employer]US MEDICARE [facility] Care Address: [address] [address] [place] [address] Advance Directives For more information, please contact: [phone] Documents on File Type Date Recorded Patient Engagement Liaison Expl anation Durable Power of Conditioning Room Worker - scan 03/11/2024 * Full Code (Latest Code Status on File) Date Activated Date Inactivated Comments 03/05/2024 10:20 PM 03/09/2024 11:04 PM Care Teams Measurement Specialist Relationship Specialty Start Date End Date Pcp, No [phone] [place] [address] PCP - General 03/05/24
--- OUTSIDE RECORDS SUMMARY | 2024-10-12 19:35 | XMS_ITS | Encounter Summary ---
Author Organization [employer] ([place], [place], [place], [place]) Address [address] [place] [address] Care Team Providers Care Stoner Out Name Role Phone Unavailable Primary Care Provider Unavailabl e Encounter Details Date Type Department Care Team (Late st Contact Info) Description 03/28/2018 Transcribed Document [facility] [place] Family Medicine [address] [place] [address] ProviderZion MD [address] [id number] Social History Tobacco Use Types Packs/Day Years Used Date Smoking Tobacco: Never Assessed Comments Unknown Sex and Gender Information Value Date Recorded Sex Assigned at Not on file Legal Sex Female 4:39 PM CDT Gender Identity Not on file Sexual Orientation Not on file documented as of this encounter Miscellaneous Notes * [employer]ner Conversion Note - Historical ProviderMD - 03/28/2018 2:00 AM ADJUNCT PHILOSOPHY FACULTY Vice President Diversity Details Entered On: 03/28/2018 6:03 EST Performed On: 03/28/2018 2:00 EST by Gabriela Reyes, RN Order Details Transport Mode Order Detail : Wheelchair Isolation Precautions Order Detail : Contact precautions Order Detail : 0 IV Order Detail : 1 Oxygen Order Detail : 0 Nurse Collect Order Detail : 1 Lift/Transfer : Independent Central Line Order Detail : Yes Room Service : Appropriate Arterial Line : No Gabriela Reyes, REGULO - 03/28/2018 6:02 EST documented in this encounter Plan of Treatment Not on file documented as of this encounter Visit Diagnoses Not on filedocumented in this encounter
--- OUTSIDE RECORDS SUMMARY | 2024-10-12 19:35 | XMS_ITS | Encounter Summary ---
Author Organization [employer] ([place], [place], [place], [place]) Address [address] [place] [address] Care Team Providers Care Life Skills Instructor Name Role Phone Unavailable Primary Care Provider Unavailabl e Encounter Details Date Type Department Care Team (Late st Contact Info) Description 03/27/2018 Transcribed Document [facility] [place] [address] [place] [address] ProviderZion MD [address] [place] [id number] Social History Tobacco Use Types Packs/Day Years Used Date Smoking Tobacco: Never Assessed Comments Unknown Sex and Gender Information Value Date Recorded Sex Assigned at Not on file Legal Sex Female 4:39 PM CDT Gender Identity Not on file Sexual Orientation Not on file documented as of this encounter Miscellaneous Notes * Cerner Conversion Note - Historical ProviderMD - 03/27/2018 8:16 AM PRODUCT TECHNICIAN Consult Phone Call Documentation Entered On: 03/27/2018 11:27 EST Performed On: 03/27/2018 8:16 EST by Mabel Quinones SWAN Phone Call for Consults Consult Phone Call/Page Attempt : First call Consult Reason : Bacteremia vegetation Physician Requested for Consult : JOHN TSAI MD-CAT Provider Service Notified Name : Cardio surgery Date and Time Call Returned : 03/27/2018 11:27 EST Non-Staff Physician Requesting Consult : NICHELLE HARRIS PA Additional Information : Spoke to Mabel Marina SWAN - 03/27/2018 11:26 EST Electronically signed by Jorge Alberto [facility] Conversion Compressed Gas Equipment Mechanic Cerner at 05/29/2022 8:38 PM CDT documented in this encounter Plan of Treatment Not on file documented as of this encounter Visit Diagnoses Not on filedocumented in this encounter
--- OUTSIDE RECORDS SUMMARY | 2024-10-12 19:35 | XMS_ITS | Encounter Summary ---
Author Organization [employer] ([place], [place], [place], [place]) Address [address] [place] [address] Care Team Providers Care Online Trader Name Role Phone Unavailable Primary Care Provider Unavailabl e Encounter Details Date Type Department Care Team (Late st Contact Info) Description 05/07/2018 Transcribed Document [facility] [place] Family Medicine [address] [place] [address] ProviderZion MD [address] [place] [address] Social History Tobacco Use Types Packs/Day Years Used Date Smoking Tobacco: Never Assessed Comments Unknown Sex and Gender Information Value Date Recorded Sex Assigned at Not on file Legal Sex Female 4:39 PM CDT Gender Identity Not on file Sexual Orientation Not on file documented as of this encounter Miscellaneous Notes * Cerner Conversion Note - Historical ProviderMD - 05/07/2018 1:15 PM CDT Nursing Discharge Summary Entered On: 05/07/2018 13:15 EDT Performed On: 05/07/2018 13:15 EDT by GAYLA CASE RN Discharge Documentation Discharge Date/Time : 05/07/2018 17:15 EDT Patient Education Completed : Yes ABBY POPE RN - 05/07/2018 16:09 EDT Patient Disposition, General : Discharge Discharge To : Home with ambulatory/outpatient follow-up GAYLA CASE RN - 05/07/2018 13:15 EDT Mode Of Departure, General Discharge : Private vehicle, Wheelchair ABBY POPE RN - 05/07/2018 16:09 EDT Accompanied By, Discharge : Daughter IV Discontinued : Yes Personal Belongings With Patient : Yes Discharge Instructions Reviewed With, Opportunity For Questions Given : Patient, Daughter Teaching Method : Explanation Teaching Evaluation : Returns demonstration, Verbalizes understanding GAYLA CASE RN - 05/07/2018 13:15 EDT documented in this encounter Plan of Treatment Not on file documented as of this encounter Visit Diagnoses Not on filedocumented in this encounter
--- OUTSIDE RECORDS SUMMARY | 2024-10-12 19:35 | XMS_ITS | Encounter Summary ---
Author Organization [employer] ([place], [place], [place], [place]) Address [address] [place] [address] Care Team Providers Care Chemical Milling Processor Name Role Phone Unavailable Primary Care Provider Unavailabl e Encounter Details Date Type Department Care Team (Late st Contact Info) Description 03/27/2018 Transcribed Document [facility] [place] Family Medicine [address] [place] [address] ProviderZion MD [address] [place], [place] [id number] Social History Tobacco Use Types Packs/Day Years Used Date Smoking Tobacco: Never Assessed Comments Unknown Sex and Gender Information Value Date Recorded Sex Assigned at Not on file Legal Sex Female 4:39 PM CDT Gender Identity Not on file Sexual Orientation Not on file documented as of this encounter Miscellaneous Notes * Cerner Conversion Note - Historical ProviderMD - 03/27/2018 8:58 AM OFFSET PRESS OPERATOR Consult Phone Call Documentation Entered On: 03/27/2018 9:19 EST Performed On: 03/27/2018 8:58 EST by Mabel Quinones SWAN Phone Call for Consults Consult Phone Call/Page Attempt : First call Consult Reason : Findings on poncho Physician Requesting Consult : HAO RUBY MD-GUICHO Physician Requested for Consult : AJAY MARCANO MD-GUICHO Date and Time Call Returned : 03/27/2018 9:19 EST Additional Information : Spoke with Mabel Sampson SWAN - 03/27/2018 9:19 EST documented in this encounter Plan of Treatment Not on file documented as of this encounter Visit Diagnoses Not on filedocumented in this encounter
--- OUTSIDE RECORDS SUMMARY | 2024-10-12 19:35 | XMS_ITS | Encounter Summary ---
Author Organization [employer] ([place], [place], [place], [place]) Address [address] [place] [address] Care Team Providers Care Paper Stripper Name Role Phone Unavailable Primary Care Provider Unavailabl e Encounter Details Date Type Department Care Team (Late st Contact Info) Description 03/29/2018 Transcribed Document [facility] [place] [address] [place] [address] ProviderZion MD [address] [phone] Social History Tobacco Use Types Packs/Day Years Used Date Smoking Tobacco: Never Assessed Comments Unknown Sex and Gender Information Value Date Recorded Sex Assigned at Not on file Legal Sex Female 4:39 PM CDT Gender Identity Not on file Sexual Orientation Not on file documented as of this encounter Miscellaneous Notes * Cerner Conversion Note - Historical ProviderMD - 03/29/2018 2:00 AM UTILITY BILL COMPLAINTS INVESTIGATOR Mail Room Details Entered On: 03/29/2018 6:43 EST Performed On: 03/29/2018 2:00 EST by Tiffany Guadalupe RN Order Details Transport Mode Order Detail : Wheelchair Isolation Precautions Order Detail : Contact precautions Order Detail : 0 IV Order Detail : 0 Oxygen Order Detail : 0 Nurse Collect Order Detail : 1 Lift/Transfer : Independent Central Line Order Detail : Yes Room Service : Appropriate Arterial Line : No Tiffany Guadalupe RN - 03/29/2018 6:43 EST documented in this encounter Plan of Treatment Not on file documented as of this encounter Visit Diagnoses Not on filedocumented in this encounter
--- OUTSIDE RECORDS SUMMARY | 2024-10-12 19:35 | XMS_ITS | Encounter Summary ---
Author Organization [employer] ([place], [place], [place], [place]) Address [address] [place] [address] Care Team Providers Care Armament Mechanic Name Role Phone Unavailable Primary Care Provider Unavailabl e Encounter Details Date Type Department Care Team (Late st Contact Info) Description 03/27/2018 Transcribed Document [facility] [place] [address] [place] [address] ProviderZion MD [address] [place] [address] Social History Tobacco Use Types Packs/Day Years Used Date Smoking Tobacco: Never Assessed Comments Unknown Sex and Gender Information Value Date Recorded Sex Assigned at Not on file Legal Sex Female 4:39 PM CDT Gender Identity Not on file Sexual Orientation Not on file documented as of this encounter Miscellaneous Notes * Cerner Conversion Note - Historical ProviderMD - 03/27/2018 10:33 AM COMPOUNDING ASSISTANT Care Management Assessment/Plan Entered On: 03/27/2018 10:34 EST Performed On: 03/27/2018 10:33 EST by Stew Porras RN Care Management Note Anticipated Discharge Date : 04/03/2018 14:00 EST Care Management Note : [id number] + for BROCK CT consulted and per ID, infection must clear prior to any ant surgical intervention Currnelty on rocephin iv w/bld cx pending Documentation Status Complete : Yes Stew Porras RN - 03/27/2018 10:33 EST Patient History Current Primary Care Physician : Anne Mott APRN Emergency Contact #1 : Quynh Mehrdad Emergency Contact #1 Emergency Contact #1 Relationship : daughter Emergency Contact #2 : Nataliya mehrdad Emergency Contact #2 Emergency Contact #2 Relationship [...] : Pt is disabled Patient History Note Report : DEEPA GALDAMEZ, Healthcare Insurance Sales Agent - 03/26/18 17:47:16 Talked w/ this 57 yr old W F transferred here from [facility] w/ bradycardia, positive blood cultures/strep B sepsis bactremia. PMH includes: bladder cancer, CAD s/p CABG, MVR, PPM plcmt (for which pt has had no F/U), pancreatitis, , COPD, DM, HTN, HLD, depression and anxiety. Pt underwent BROCK today due to concern for possible infected pacemaker (report not in yet). She is currently on 2gm IV rocephin, which [facility] says she will need until 04/20/18. Pt lives w/ her estranged spouse at [facility] address, claims she is indep w/ all activities. D/C plan pending outcome of possible pacer removal, may well be good [facility] candidate. She denies any needs now, CM will cont to follow. Stew Porras RN - 03/27/2018 10:33 EST documented in this encounter Plan of Treatment Not on file documented as of this encounter Visit Diagnoses Not on filedocumented in this encounter
--- OUTSIDE RECORDS SUMMARY | 2024-10-12 19:35 | XMS_ITS | Encounter Summary ---
Author Organization [employer] ([place], [place], [place], [place]) Address [address] [place] [address] Care Team Providers Care Senior Dentist Name Role Phone Unavailable Primary Care Provider Unavailabl e Encounter Details Date Type Department Care Team (Late st Contact Info) Description 03/25/2018 Transcribed Document [facility] [place] [facility] [place] [address] ProviderZion MD [address], [place] [id number] Social History Tobacco Use Types Packs/Day Years Used Date Smoking Tobacco: Never Assessed Comments Unknown Sex and Gender Information Value Date Recorded Sex Assigned at Not on file Legal Sex Female 4:39 PM CDT Gender Identity Not on file Sexual Orientation Not on file documented as of this encounter Miscellaneous Notes * Cerner Conversion Note - Zion ProviderMD - 03/25/2018 9:14 AM ENVELOPE MAKER Patient: ETHAN CRONIN Age: 57 years Sex: Female : 1960 Associated Diagnoses: None Author: CARROLL HIGH MD-INF Basic Information CC: Sepsis bacteremia 03/19/18 4/4 bottles for Group b strep ([facility]) History of Present Illness 57-year-old white female with history of bladder cancer, atrial flutter, pacemaker placement 2016, hypertension, DM2, COPD, pancreatitis, who recently had blood cultures obtained at [facility] on 03/19/18 for fever which were positive in 4 out of 4 bottles for group B Streptococcus. Patient was to start IV antibiotics but was found to have bradycardia and was admitted to [facility] on 03/23/17. I was consulted on 03/25/17. The patient had been started on vancomycin and Rocephin. Urine culture obtained at [facility] was positive for multiple bacteria consistent with contaminant, and urinalysis was consistent with possible infection. The patient has an ileal conduit since 2007 after bladder resection for bladder cancer. She [...] She has had the pacemaker since 2016. Review of Systems Constitutional: Weakness, Fatigue, No fever, No chills, No sweats. Eye: No recent visual problem, No icterus, No blurring, No visual disturbances. Ear/Nose/Mouth/Throat: No decreased hearing, No sore throat. Respiratory: No shortness of breath, No cough, No sputum production. Cardiovascular: No chest pain, No palpitations, No bradycardia. Gastrointestinal: No nausea, No vomiting, No diarrhea, No abdominal pain. Genitourinary: No dysuria, No hematuria, No change in urine stream. Hematology/Lymphatics: No bruising tendency, No bleeding tendency, No swollen lymph glands. Endocrine: No excessive thirst, No polyuria, No cold intolerance. Immunologic: Not immunocompromised, No recurrent fevers, No recurrent infections. Musculoskeletal: No back pain, No neck pain, No joint pain, No muscle pain, No claudication, No decreased range of motion. Integumentary: No rash, No abrasions. Neurologic: No confusion, No headache. Psychiatric: No anxiety, No depression. Health Status Allergies: No qualifying data available Current medications: Medications by Classification Antimicrobials cefTRIAXone (Rocephin) - 2 Gram, IV Piggyback, [id number], infuse over 30 Minute(s), Routine vancomycin + Sodium Chloride 0.9% intravenous solution 250 m - 750 mg, IV Piggyback, [id number], infuse over 1 Hour(s) Anticoagulant heparin - 5,000 Units, SubCutaneous, Inj, [...] 20 mg, Oral, Tab, At Bedtime, Routine Problem list: No problem items selected or recorded., Active Problems (10) Anxiety Atrial flutter Bladder cancer COPD (chronic obstructive pulmonary disease) Depression Diabetes Hyperlipidemia Hypertension Pancreatitis Tobacco abuse Histories Past Medical History: No active or resolved past medical history items have been selected or recorded. Family History: No family history items have been selected or recorded., Reviewed and unremarkable Procedure history: cystectomy with ileal conduit. Comments: 02/17/2015 11:52 - SUSI BOWMAN RN 2006 hysterectomy. Comments: 02/17/2015 11:52 - SUSI BOWMAN RN 2006 Cholecystectomy; ([id number]). Comments: 02/17/2015 11:52 - SUSI BOWMAN RN 2006 umbilical hernia repair. Social History Social & Psychosocial Habits Tobacco 02/17/2015 Tobacco Use Within Last Twelve Months Cigarettes Smoking Status Current every day smoker Years of Tobacco Use 40 Packs/Tins Daily 1 Smoking Cessation Information Provided Yes . , 3 children, lives in [facility] about 1-1/2 hours from [place].. Physical Examination VS/Measurements Vitals Signs (last 24 hrs) Last Charted Minimum Maximum Temp 97.5 (MAR 25 06:41) 97.5 (MAR 25:41) 97.4 (MAR 24:) Mon HR 70 (MAR 25:41) 50 (MAR 24:) 70 (MAR 25 00:04) Resp Rate 16 (MAR 25 06:41) 16 (MAR 24:00) 16 (MAR 24:) SBP 107 (MAR 25 06:41) 98 (MAR 25 00:04) 134 (MAR 24:15) DBP 60 (MAR 25:41) L 47 (MAR 24:00) 65 (MAR 24:15) MAP 72 (MAR 25 06:41) 67 (MAR 25 00:04) 103 (MAR 24 16:15) SpO2 95 (MAR 25 06:41) L 91 (MAR 25 00:04) 98 (MAR 24:) General: Alert and oriented, Moderate distress. Eye: Pupils are equal, round and reactive to light, Extraocular movements are intact, Normal conjunctiva. HENT: Normocephalic, Oral mucosa is moist, No pharyngeal erythema, Ears externally normal, nose externally normal. Neck: Supple, Non-tender, No jugular venous distention, No lymphadenopathy, No thyromegaly. Respiratory: Lungs are clear to auscultation, Respirations are non-labored, Breath sounds are equal, No chest wall tenderness. Cardiovascular: Normal rate, No gallop, Normal peripheral perfusion. Gastrointestinal: Soft, Non-tender, Non-distended, Normal bowel sounds, No organomegaly. Genitourinary: No genital lesions, back straight, no CVA tenderness, breasts symmetric, rectal per history of present illness. Lymphatics: No lymphadenopathy neck, axilla, groin. Musculoskeletal: Normal range of motion, Normal strength, No tenderness. Integumentary: Warm, Dry, [place], No pallor, No rash, Left chest wall pacemaker site without erythema or fluctuance, Right arm PICC okay. Neurologic: Alert, Oriented, Normal sensory, Normal motor function, No focal deficits, Cranial Nerves II-XII are grossly intact, Normal deep tendon reflexes. Cognition and Speech: Oriented, Speech clear and coherent. Psychiatric: Cooperative, Appropriate mood & affect. Review / Management Results review: Labs (Last four charted values) WBC 9.0 (FEB 12) 9.3 (FEB 11) 9.0 (FEB 10) HB 11.4 (B 12) L 9.9 (B 11) L 10.8 (FEB 10) HCT 35.4 (FEB 12) L 30.9 (FEB 11) 35.0 (FEB 10) Plt H 429 (FEB 12) 348 (FEB 11) H 379 (FEB 10) Na 137 (FEB 12) 139 (FEB 11) 141 (FEB 10) K 3.7 (FEB 12) 3.8 (FEB 11) 3.9 (FEB 10) Cl 106 (FEB 12) 111 (FEB 11) 110 (FEB 10) CO2 L 20 (B 12) L 17 (FEB 11) L 18 (FEB 10) BUN 20 (B 12) H 23 (FEB 11) 20 (FEB 10) Cr 0.90 (FEB 12) 0.90 (FEB 11) 1.00 (FEB 10) Glu R H 108 (FEB 12) H 120 (FEB 11) 102 (FEB 10) Ca 8.8 (FEB 12) L 7.8 (MAR 24) L 7.8 (MAR 23) Lactic 1.4 (MAR 23) PT 11.3 (MAR 23) INR 1.0 (MAR 23) AST 29 (MAR 23) ALT 28 (MAR 23) ALK P 108 (MAR 23) T Bili 0.5 (MAR 23) PTN 6.5 (MAR 23) ALB L 2.4 (MAR 23) Troponin <0.015 (MAR 23) . Radiology results No Radiology Results Found Diagnostic Findings: ACC: [id number] ORDER: Culture Blood DATE: 03/23/2018 17:49 SOURCE: Blood SITE: Reports Pre 03/24/2018 23:02 No growth at 1 day. Pre 03/24/2018 16:03 Culture less than 24 Hrs old == [facility]: [id number] ORDER: Culture Blood DATE: 03/23/2018 17:49 SOURCE: Blood SITE: Reports Pre 03/24/2018 23:02 No growth at 1 day. Pre 03/24/2018 16:03 Culture less than 24 Hrs old == . Impression and Plan 1. Group B streptococcus sepsis 03/19/18 in 4 out of 4 blood culture bottles positive at [facility] (spoke to Maurice Spencer, at [facility]). The high-grade bacteremia suggests intravascular source including possible pacemaker infection. Less likely from genitourinary tract source. 2. Urine culture polymicrobial positive culture from 03/19/18 likely contaminant from ileal conduit. 3. Bradycardia. 4. Hypoalbuminemia. 5. Diabetes mellitus type 2 with increased risk for infection. 6. Bladder cancer status post cystectomy with ileal conduit 2006. Increased risk for infection. 7. COPD. REC: 1. Diagnostically, continue to follow patient's physical exam, CBC, CMP, CRP, lactic acid, pro-calcitonin, transesophageal echocardiogram, transthoracic echocardiogram, CT scan of the abdomen and pelvis with by mouth contrast only. 2. Therapeutically, consider Rocephin 2 g IV every 12 hours to continue until 04/20/18 for 4 weeks. 3. If pacemaker is involved, may need explantation. Thank you for consultation. I will follow. Plan has been discussed with patient including side effects of medications and line. At increased risk for side effects of abx and line, readmission. documented in this encounter Plan of Treatment Not on file documented as of this encounter Visit Diagnoses Not on filedocumented in this encounter
--- OUTSIDE RECORDS SUMMARY | 2024-10-12 19:35 | XMS_ITS | Encounter Summary ---
Author Organization [employer] ([place], [place], [place], [place]) Address [address] [place] [address] Care Team Providers Care Applications Administrator Name Role Phone Unavailable Primary Care Provider Unavailabl e Encounter Details Date Type Department Care Team (Late st Contact Info) Description 03/29/2018 Transcribed Document [facility] [place] Family Medicine [facility] [place] [address] ProviderZion MD [address] [place] [id number] Social History Tobacco Use Types Packs/Day Years Used Date Smoking Tobacco: Never Assessed Comments Unknown Sex and Gender Information Value Date Recorded Sex Assigned at Not on file Legal Sex Female 4:39 PM CDT Gender Identity Not on file Sexual Orientation Not on file documented as of this encounter Miscellaneous Notes * Cerner Conversion Note - Zion ProviderMD - 03/29/2018 8:09 AM GARMENT SUPERVISOR Patient: ETHAN CRONIN Age: 57 years Sex: Female : 1960 Associated Diagnoses: None Author: CARROLL HIGH MD-INF Basic Information CC: Sepsis bacteremia 03/19/18 4/4 bottles for Group b strep ([facility]), mitral prosthetic valve endocarditis History of Present Illness 57-year-old white female with history of bladder cancer, atrial flutter, pacemaker placement 2016, hypertension, DM2, COPD, pancreatitis, who recently had blood cultures obtained at [facility] on 03/19/18 for fever which were positive in 4 out of 4 bottles for group B Streptococcus. Patient was to start IV antibiotics but was found to have bradycardia and was admitted to [facility] on 03/23/17. I was consulted on 03/25/17. The patient had been started on vancomycin and Rocephin. Urine culture obtained at [facility] was positive for multiple bacteria consistent [...] IV antibiotics alone and then potentially suppress. history reviewed. Tolerating Rocephin for group B prosthetic mitral valve endocarditis until 05/04 for 6 weeks. And possible lifetime suppression with Penicillin VK. No high fevers or chills. No pain. Review of Systems Constitutional: Weakness, Fatigue, Decreased activity, No fever, No chills, No sweats. Eye: No visual disturbances. Ear/Nose/Mouth/Throat Respiratory: No shortness of breath, No cough, No sputum production. Cardiovascular: No chest pain, No palpitations, No bradycardia, No peripheral edema. Gastrointestinal: No nausea, No vomiting, No diarrhea, No heartburn, No abdominal pain. Genitourinary: No dysuria, No [...] cefTRIAXone (Rocephin) - 2 Gram, IV Piggyback, [id number], infuse over 30 Minute(s), Routine Anticoagulant heparin - 5,000 Units, SubCutaneous, Inj, Q8H, Routine Cardiovascular clopidogrel (Plavix) - 75 mg, Oral, Tab, Daily, Routine carvedilol - 3.125 mg, Oral, Tab, Daily, Routine lisinopril - 2.5 mg, Oral, Tab, Daily, Routine Respiratory albuterol-ipratropium [...] 24 hrs) Last Charted Minimum Maximum Temp 97.3 (MAR 29 04:00) 97.3 (MAR 29 04:00) 97.4 (MAR 28:) Mon HR 69 (MAR 29 04:00) 69 (MAR 29 04:00) 81 (MAR 29 00:00) Resp Rate 16 (MAR 28 18:35) 16 (MAR 28 16:15) 16 (MAR 28 16:15) SBP 105 (MAR 29 04:00) 91 (MAR 28 08:33) 107 (MAR 28 16:15) DBP 69 (MAR 29 04:00) 60 (MAR 28 08:33) 78 (MAR 28 18:35) MAP 81 (MAR 29 04:00) 69 (MAR 28 08:33) 91 (MAR 28 18:35) SpO2 L 93 (MAR 29 04:00) L 93 (MAR 29 04:00) 97 (MAR 28 18:35) General: Alert and oriented, Mild distress. Eye: Pupils are equal, round and reactive to light, Extraocular movements are intact, Normal conjunctiva. HENT: Normocephalic, Oral mucosa is moist. Neck: Supple, Non-tender, No jugular venous distention, No lymphadenopathy, No thyromegaly. Respiratory: Lungs are clear to auscultation, Respirations are non-labored, Breath sounds are equal. Cardiovascular: Normal rate, No gallop, Normal peripheral perfusion. Gastrointestinal: Soft, Non-tender, Non-distended, Normal bowel sounds, No organomegaly. Lymphatics: No lymphadenopathy neck, axilla, groin. Musculoskeletal: Normal range of motion, Normal strength, No tenderness. Integumentary: Warm, Dry, [place], No pallor, No rash, Left chest wall [...] (FEB 13) 1.4 (FEB 10) PT 11.3 (MAR 10) INR 1.0 (MAR 10) AST 23 (MAR 26) 29 (MAR 10) ALT 32 (MAR 26) 28 (MAR 10) ALK P 121 (MAR 26) 108 (MAR 10) T Bili 0.4 (MAR 26) 0.5 (B 10) PTN 6.9 (MAR 26) 6.5 (MAR 10) ALB L 2.5 (MAR 26) L 2.4 (MAR 10) Troponin <0.015 (MAR 23) . Impression and Plan 1. Group B streptococcus sepsis 03/19/18 in 4 out of 4 blood culture bottles positive at [facility] (spoke to Maurice Spencer, at [facility]). BROCK consistent with mitral valve endocarditis, prosthetic. [...] infection. 7. COPD. 8. Acute kidney injury, worse. May be related to her endocarditis with immune complex injury. Versus interstitial nephritis from her antibiotics. Plan: 1. Diagnostically, continue to follow patient's [...] Perez's service, cardiology, and Dr. Alan.. manager of financial reporting: Please arrange for outpatient IV antibiotics with Rocephin 2 g IV every 12 hours until 05/04/18. Follow CBC, CMP, CRP weekly while on IV antibiotics. Fax orders to [phone], and call [phone] with final arrangements. Arrange for follow-up with me in 2 weeks post discharge. documented in this encounter Plan of Treatment Not on file documented as of this encounter Visit Diagnoses Not on filedocumented in this encounter
--- OUTSIDE RECORDS SUMMARY | 2024-10-12 19:35 | XMS_ITS | Encounter Summary ---
Author Organization [employer] ([place], [place], [place], [place]) Address [address] [place] [address] Care Team Providers Care Rotational Moulding Operator Name Role Phone Unavailable Primary Care Provider Unavailabl e Encounter Details Date Type Department Care Team (Late st Contact Info) Description 03/27/2018 Transcribed Document [facility] [place] [facility] [place] [address] ProviderZion MD [address] [place] [address] Social History Tobacco Use Types Packs/Day Years Used Date Smoking Tobacco: Never Assessed Comments Unknown Sex and Gender Information Value Date Recorded Sex Assigned at Not on file Legal Sex Female 4:39 PM CDT Gender Identity Not on file Sexual Orientation Not on file documented as of this encounter Miscellaneous Notes * Cerner Conversion Note - Historical ProviderMD - 03/27/2018 2:54 PM PROJECTION ENGINEER Care Management Assessment/Plan Entered On: 03/27/2018 15:00 EST Performed On: 03/27/2018 14:54 EST by Stew Porras, REGULO Care Management Note Anticipated Discharge Date : 04/03/2018 14:00 EST Care Management Note : spoke to ID who states pt maybe ready for dc as early as 03/28. id and attending PA are recommending SNF. spoke with pt and her dtr, jazmine and informed them of suggestion from drs to dc to snf for iv abx. pt and dtr in agreement and referrlas made via [facility] to the following [place].... [place]. Care Management Note Report : Stew Porras RN - 03/27/18 10:34:34 [id number] + for BROCK CT consulted and per ID, infection must clear prior to any ant surgical intervention Currnelty on rocephin iv w/bld cx pending Documentation Status Complete : Yes Stew Porras, RN - 03/27/2018 14:54 EST Electronically signed by Jorge Alberto, [facility] Conversion Craft Artist Cerner at 05/29/2022 8:28 PM CDT documented in this encounter Plan of Treatment Not on file documented as of this encounter Visit Diagnoses Not on filedocumented in this encounter
--- OUTSIDE RECORDS SUMMARY | 2024-10-12 19:35 | XMS_ITS | Encounter Summary ---
Author Organization [employer] ([place], [place], [place], [place]) Address [address] [place] [address] Care Team Providers Care Government Operations Consultant Name Role Phone Unavailable Primary Care Provider Unavailabl e Encounter Details Date Type Department Care Team (Late st Contact Info) Description 05/07/2018 Transcribed Document [facility] [place] Family Medicine [address] [place] [address] ProviderZion MD [address] [place] [phone] Social History Tobacco Use Types Packs/Day Years Used Date Smoking Tobacco: Never Assessed Comments Unknown Sex and Gender Information Value Date Recorded Sex Assigned at Not on file Legal Sex Female 4:39 PM CDT Gender Identity Not on file Sexual Orientation Not on file documented as of this encounter Miscellaneous Notes * Cerner Conversion Note - Historical ProviderMD - 05/07/2018 1:15 PM CDT Discharge Instructions Entered On: 05/07/2018 13:16 EDT Performed On: 05/07/2018 13:15 EDT by GAYLA CASE RN DC Instructions HWD Stroke/TIA Discharge Ins : N/A Heart Failure Discharge Ins : N/A Warfarin Discharge Ins : N/A Diet After Discharge : Regular diet as tolerated Activity After Discharge : Rest and relax today Driving After Discharge : Do not drive, Other: for 24 hours post procedure Showering/Bathing : May shower GAYLA CASE RN - 05/07/2018 13:15 EDT ABBY POPE RN - 05/07/2018 16:09 EDT Electronically signed by Jorge Alberto [facility] Conversion Africana Studies Professor Cerner at 05/29/2022 8:32 PM CDT documented in this encounter Plan of Treatment Not on file documented as of this encounter Visit Diagnoses Not on filedocumented in this encounter
--- OUTSIDE RECORDS SUMMARY | 2024-10-12 19:35 | XMS_ITS | Encounter Summary ---
Author Organization [employer] ([place], [place], [place], [place]) Address [address] [place] [address] Care Team Providers Care Appellate Court Clerk Name Role Phone Unavailable Primary Care Provider Unavailabl e Encounter Details Date Type Department Care Team (Late st Contact Info) Description 03/25/2018 Transcribed Document [facility] [place] [address] [place] [address] ProviderZion MD [address] [place] [address] Social History Tobacco Use Types Packs/Day Years Used Date Smoking Tobacco: Never Assessed Comments Unknown Sex and Gender Information Value Date Recorded Sex Assigned at Not on file Legal Sex Female 4:39 PM CDT Gender Identity Not on file Sexual Orientation Not on file documented as of this encounter Miscellaneous Notes * Cerner Conversion Note - Historical ProviderMD - 03/25/2018 5:00 PM TRANSPORTATION ANALYST Chart Check - Review Order Profile Entered On: 03/25/2018 17:06 EST Performed On: 03/25/2018 17:00 EST by Ric Bautista RN Chart Check Chart Reviewed Date and Time : 03/25/2018 17:06 EST [employer] Initiated/Discontinued as Appropriate : Yes All Active Orders Reviewed : Yes Ric Bautista RN - 03/25/2018 17:06 EST documented in this encounter Plan of Treatment Not on file documented as of this encounter Visit Diagnoses Not on filedocumented in this encounter
--- OUTSIDE RECORDS SUMMARY | 2024-10-12 19:35 | XMS_ITS | Encounter Summary ---
Author Organization [email or web address] ([place], [place], [place], [place]) Address [address] [place] [address] Care Team Providers Care Floor Attendant Name Role Phone Unavailable Primary Care Provider Unavailabl e Encounter Details Date Type Department Care Team (Late st Contact Info) Description 03/25/[address] [facility] [place] Family Medicine [address] [place] [address] ProviderZion MD [address] [place] [address] Social History Tobacco Use Types Packs/Day Years Used Date Smoking Tobacco: Never Assessed Comments Unknown Sex and Gender Information Value Date Recorded Sex Assigned at Not on file Legal Sex Female 4:39 PM CDT Gender Identity Not on file Sexual Orientation Not on file documented as of this encounter Miscellaneous Notes * Cerner Conversion Note - Zion ProviderMD - 03/25/2018 8:01 AM STAB SETTER AND DRILLER Patient: ETHAN CRONIN Age: 57 years Sex: Female : 1960 Associated Diagnoses: None Author: NAVID STARKEY, [facility] 57 year old female with bradycardia during outpt infusion for bacteremia PMH: CAD, CABG/pacemaker 3 years ago, DM, HTN, and GA Consult: vancomycin Indication: bacteremia Goal of Trough: 12-18 mcg/mL Consulting MD: Omar Nelson ID: pending wt = 75kg I/O = 550 / ---- (no UOP documented) Allergies: No Known Allergies Current Abx: ceftriaxone 2g IV q24H (start 03/23) vancomycin (start 03/23) Labs (Last four charted values) WBC 9.0 (MAR 25) 9.3 (MAR 24) 9.0 (MAR 23) HB 11.4 (FEB 12) L 9.9 (FEB 11) L 10.8 (FEB 10) HCT 35.4 (FEB 12) L 30.9 (FEB 11) 35.0 (FEB 10) Plt H 429 (FEB 12) 348 (FEB 11) H 379 (FEB 10) Na 137 (FEB 12) 139 (FEB 11) 141 (FEB 10) K 3.7 (FEB 12) 3.8 (FEB 11) 3.9 (FEB 10) Cl 106 (FEB 12) 111 (FEB 11) 110 (FEB 10) CO2 L 20 (FEB 12) L 17 (FEB 11) L 18 (FEB 10) BUN 20 (FEB 12) H 23 (FEB 11) 20 (FEB 10) Cr 0.90 (FEB 12) 0.90 (FEB 11) 1.00 (FEB 10) Glu R H 108 (FEB 12) H 120 (FEB 11) 102 (FEB 10) Ca 8.8 (FEB 12) L 7.8 (FEB 11) L 7.8 (FEB 10) Lactic 1.4 (FEB 10) Vitals Signs (last 24 hrs) Last Charted Minimum Maximum Temp 97.5 (B 06:41) 97.5 (B 06:41) 97.4 (B 11:00) Mon HR 70 (MAR 25 06:41) 50 (MAR 24 11:00) 70 (B 00:04) Resp Rate 16 (B 06:41) 16 (B 11:00) 16 (B 11:00) SBP 107 (B 06:41) 98 (B 00:04) 134 (B 16:15) DBP 60 (B 06:41) L 47 (B 11:00) 65 (FEB 16:15) MAP 72 (B 06:41) 67 (B 00:04) 103 (B 16:15) SpO2 95 (MAR 25 06:41) L 91 (B 00:04) 98 (MAR 24 11:00) Micro: 03/23-blood: NGTD x2 sets Vanc levels: 03/25 Vancomycin Trough = 24.2 @ 06:37 (1 hour early) Calculated Ke = 0.061 hr-1 A/P: 1. Change vancomycin to 750mg (~10mg/kg) IV q12h -next dose tonight at 21:00 -estimated trough ~ 13.2 from this dose 3. Will order vancomycin trough prior to the 4th dose on 03/27 @ 09:00 -Hold dose if trough > 20 4. All medications appropriately dosed at this time. Rx to continue to follow and adjust based on levels, clinical status, and culture results Thank you for the consult. Pharmacy will continue to follow Navid Starkey RPh documented in this encounter Plan of Treatment Not on file documented as of this encounter Visit Diagnoses Not on filedocumented in this encounter
--- OUTSIDE RECORDS SUMMARY | 2024-10-12 19:35 | XMS_ITS | Encounter Summary ---
Author Organization [employer] ([place], [place], [place], [place]) Address [address] [place] [address] Care Team Providers Care Wood Grinder Operator Name Role Phone Unavailable Primary Care Provider Unavailabl e Encounter Details Date Type Department Care Team (Late st Contact Info) Description 05/07/2018 Transcribed Document [facility] [place] Family Medicine [address] [place] [address] ProviderZion MD [address] [place] [address] Social History Tobacco Use Types Packs/Day Years Used Date Smoking Tobacco: Never Assessed Comments Unknown Sex and Gender Information Value Date Recorded Sex Assigned at Not on file Legal Sex Female 4:39 PM CDT Gender Identity Not on file Sexual Orientation Not on file documented as of this encounter Miscellaneous Notes * Cerner Conversion Note - Zion ProviderMD - 05/07/2018 4:09 PM CDT Patient Education Materials Follows: Moderate Conscious Sedation, Adult, Care After These instructions provide you with information about caring for yourself after your procedure. Your health care provider may also give you more specific instructions. Your treatment has been planned according to current medical practices, but problems sometimes occur. Call your health care provider if you have any problems or questions after your procedure. What can I expect after the procedure? After your procedure, it is common: ??? To feel sleepy for several hours. ??? To feel clumsy and have poor balance for several hours. ??? To have poor judgment for several hours. ??? To vomit if you eat too soon. Follow these instructions at home: For at least 24 hours after the procedure: ??? Do not: ? Participate in activities where you could fall or become injured. ? Drive. ? Use heavy machinery. ? Drink alcohol. ? Take sleeping pills or medicines that cause drowsiness. ? Make important decisions or sign legal documents. ? Take care of children on your own. ??? Rest. Eating and drinking ??? Follow the diet recommended by your health care provider. ??? If you vomit: ? Drink water, juice, or soup when you can drink without vomiting. ? Make sure you have little or no nausea before eating solid foods. General instructions ??? Have a responsible adult stay with you until you are awake and alert. ??? Take umpc-zcm-wlcbmeg and prescription medicines only as told by your health care provider. ??? If you smoke, do not smoke without supervision. ??? Keep all follow-up visits as told by your health care provider. This is important. Contact a health care provider if: ??? You keep feeling nauseous or you keep vomiting. ??? You feel light-headed. ??? You develop a rash. ??? You have a fever. Get help right away if: ??? You have trouble breathing. This information is not intended to replace advice given to you by your health care provider. Make sure you discuss any questions you have with your health care provider. Document Released: 11/18/2013 Document Revised: 07/02/2016 Document Reviewed: 05/19/2016 Else9Cookies Interactive Patient Education ? 2017 [employer] Radiology Transesophageal Echocardiogram Transesophageal echocardiography (BROCK) is a picture test of your heart using sound waves. The pictures taken can give very detailed pictures of your heart. This can help your doctor see if there are problems with your heart. BROCK can check: ??? If your heart has blood clots in it. ??? How well your heart valves are working. ??? If you have an infection on the inside of your heart. ??? Some of the major arteries of your heart. ??? If your heart valve is working after a repair. ??? Your heart before a procedure that uses a shock to your heart to get the rhythm back to normal. What happens before the procedure? Do noteat or drink for 6 hours before the procedure or as told by your doctor. ??? Make plans to have someone drive you home after the procedure. Do not drive yourself home. ??? An IV tube will be put in your arm. What happens during the procedure? You will be given a medicine to help you relax (sedative). It will be given through the IV tube. ??? A numbing medicine will be sprayed or gargled in the back of your throat to help numb it. ??? The tip of the probe is placed into the back of your mouth. You will be asked to swallow. This helps to pass the probe into your esophagus. ??? Once the tip of the probe is in the right place, your doctor can take pictures of your heart. ??? You may feel pressure at the back of your throat. What happens after the procedure? You will be taken to a recovery area so the sedative can wear off. ??? Your throat may be sore and scratchy. This will go away slowly over time. ??? You will go home when you are fully awake and able to swallow liquids. ??? You should have someone stay with you for the next 24 hours. ??? Do not drive or operate machinery for the next 24 hours. This information is not intended to replace advice given to you by your health care provider. Make sure you discuss any questions you have with your health care provider. Document Released: 11/25/2009 Document Revised: 07/05/2016 Document Reviewed: 07/30/2013 Elsevier Interactive Patient Education ? 2017 [employer] documented in this encounter Plan of Treatment Not on file documented as of this encounter Visit Diagnoses Not on filedocumented in this encounter
--- OUTSIDE RECORDS SUMMARY | 2024-10-12 19:35 | XMS_ITS | Encounter Summary ---
Author Organization [employer] ([place], [place], [place], [place]) Address [address] [place] [address] Care Team Providers Care Jig And Fixture Builder Apprentice Name Role Phone Unavailable Primary Care Provider Unavailabl e Encounter Details Date Type Department Care Team (Late st Contact Info) Description 05/07/2018 Transcribed Document [facility] [place] Family Medicine [facility] [place] [address] ProviderZion MD [address] [place] [address] Social History Tobacco Use Types Packs/Day [...] Zion ProviderMD - 05/07/2018 4:09 PM CDT [address] [place] [address] Patient Copy Patient Information: Name: ETHAN CRONIN Current Date: 05/07/2018 16:09:51 : 1960 Patient Address: [address] [place] [id number] Patient Attending Physician: AJAY MARCANO MD-GUICHO Primary Care Provider: SUJIT DAWKINS (REF)MD-SHELLEY Primary Care Provider Discharge Diagnosis: Weight on Admission: 163 lb, 0 oz Comment: Follow-up Instructions: With: Address: When: JOHN TSAI [address] [facility] [place] [address] [facility] (1) 11:45 AM With: Address: When: AJAY MARCANO [address] [place] [address], [address] [place] [address] [facility] (1) Within 2 to 3 days Comments: Follow-up as instructed Discharge Instructions: Diet after Discharge: Regular diet as tolerated Activity after Discharge: Rest and relax today Driving after Discharge: Do not drive, Other: for 24 hours post procedure Showering/Bathing:May shower Immunizations Documented During Stay: No Immunizations Found Heart Failure Discharge Instructions (if any): Stroke Related Discharge Instructions (if any): Warfarin Related Discharge Instructions (if any): Final Medication List: Other Medications ALPRAZolam (Xanax 0.5 mg oral tablet) 1 Tablet(s) Oral Two Times A Day. aspirin (Aspirin Enteric Coated 81 mg oral delayed release tablet) 1 Tablet(s) Oral Every Day. carvedilol (carvedilol 6.25 mg oral tablet) Oral Every Day. citalopram (CeleXA 20 mg oral tablet) 1 Tablet(s) Oral Every Day. clopidogrel (Plavix 75 mg oral tablet) 1 Tablet(s) Oral Every Day. script sent by cardiology. dilTIAZem 120 Milligram(s) Every Day. gabapentin (gabapentin 300 mg oral capsule) Oral Three Times A Day. insulin isophane (NPH)-insulin regular (NovoLIN 70/30) 20 Unit(s) SubCutaneous Every Morning for 30 Day(s). insulin isophane (NPH)-insulin regular (NovoLIN 70/30) 10 Unit(s) SubCutaneous Every Evening for 30 Day(s). insulin lispro (insulin lispro 100 units/mL injectable solution) 76 kg - 100 kg scale SubCutaneous Before Meals and at Bedtime. levothyroxine (levothyroxine 25 mcg (0.025 mg) oral tablet) 1 Tablet(s) Oral Every Day. lisinopril (lisinopril 5 mg oral tablet) 0.5 Tablet(s) Oral Every Day. nicotine (nicotine 21 mg/24 hr transdermal film, extended release) 1 Patch(es) TransDermal Every Day. PRAVAstatin (pravastatin 20 mg oral tablet) 1 Tablet(s) Oral At Bedtime. saccharomyces boulardii lyo (Florastor 250 mg oral capsule) 1 Capsule(s) Oral Every Day. Patient Allergies: No Known Allergies Medication Instructions: Take your medications faithfully. Do NOT skip medication. Do NOT stop taking medications without the direction of a physician. Carry a list of your medications with you at all times, and take this medication list with you to your first follow up visit. Report any side effects. Avoid herbal remedies unless discussed with your physician. As part of your treatment plan, your physician may have prescribed a limited course of a controlled substance. This medication may be given to help people with moderate or severe pain or for other medical conditions, but there are risks involved with treatment. Common side effects may include nausea, constipation, drowsiness, sweating, itching, dry mouth, and rash. More serious side effects may include cognitive and motor impairment, like problems with thinking, concentrating, alertness, and movement (e.g. slowed reflexes), and driving and operating heavy machinery can be dangerous. It is important for you to talk to your physician if you have these side effects or questions. These controlled substances can produce physical dependence and be habit-forming if taken for an extended period of time, which means that the body has gotten used to them and may experience withdrawal symptoms if they are abruptly stopped. Withdrawal symptoms can include runny nose, sweating, goose bumps, diarrhea, abdominal cramping, rapid heartbeat, difficulty sleeping, and nervousness. Patient education materials: Moderate Conscious Sedation, Adult, Care After These [...] you are awake and alert. ??? Take daqg-wzu-krciqbs and prescription medicines only as told by [...] 11/18/2013 Document Revised: 07/02/2016 Document Reviewed: 05/19/2016 ElseDesmos Interactive Patient Education ? 2017 [employer] Transesophageal Echocardiogram Transesophageal echocardiography (BROCK) is a [...] 11/25/2009 Document Revised: 07/05/2016 Document Reviewed: 07/30/2013 A[employer] Interactive Patient Education ? 2017 [employer] CIGARETTE SMOKING: The facts are clear, cigarette smoking will shorten your life. Smoking can cause many illnesses along the way. As a healthcare provider, we recommend that you stop smoking. Assistance with quitting is available by contacting 0-740-KLUS-NOW. This is a free resource providing counseling, support, and referral. Or you may contact your personal physician. 4 WAYS TO GET AHEAD OF SEPSIS SEPSIS is a MEDICAL EMERGENCY. Time matters! Infections put you and your family at risk for a life-threatening condition called sepsis. Sepsis is the body???s extreme response to an infection. It is life-threatening, and without timely treatment, sepsis can rapidly lead to tissue damage, organ failure, and . Sepsis happens when an infection you already have???in your skin, lungs, urinary tract or somewhere else???triggers a chain reaction throughout your body. 1 PREVENT INFECTIONS Take good care of chronic conditions. Talk to your doctor about getting the recommended vaccines. 2 PRACTICE GOOD HYGIENE Wash your hands frequently. Keep cuts or open sores clean and covered until they are healed. 3 KNOW THE SYMPTOMS Confusion or disorientation Shortness of breath High heart rate Fever, shivering, or feeling very cold Extreme pain or discomfort Clammy or sweaty skin 4 ACT FAST Get medical care IMMEDIATELY if you suspect sepsis or if you have an infection that???s not getting better or is getting worse. To learn more about sepsis and how to prevent infections, visit www.cdc.gov/sepsis. STROKE is an EMERGENCY Every Minute Counts ACT F.A.S.T! FACE ?? Facial droop ?? Uneven smile ARM ?? Arm numbness ?? Arm weakness SPEECH ?? Slurred speech ?? Difficulty speaking or understanding TIME ?? Call 911 and get to the hospital immediately Have the ambulance go to the nearest stroke center. STROKE Risk Factors High blood pressure High cholesterol Heart Disease Diabetes Smoking Heavy alcohol use Physical inactivity and obesity Atrial Fibrillation (irregular heartbeat) Family history of stroke Reminder: Be sure to sign up for the [employer] patient portal, which gives you 03/09 access to your medical information ??? including these discharge instructions ??? using your computer, smartphone, or tablet. Just go to [employer] to get started. Questions? Call . [facility] would like to thank you for allowing us to assist you with your healthcare needs. GERTRUDE Mcconnell VERONICA GAY, (or lifeline representatives) have received the above patient education materials/instructions and have verbalized understanding: Patient Signature _ Date/Time Patient Guardian Ad Litem Signature (if needed) Date/Time Clinician/Hospital Guardian Ad Litem Signature (if needed) Date/Time Electronically signed by Interface, [facility] Conversion Bilingual Instructor Cerner at 05/29/2022 8:55 PM CDT documented in this encounter Plan of Treatment Not on file documented as of this encounter Visit Diagnoses Not on filedocumented in this encounter
--- OUTSIDE RECORDS SUMMARY | 2024-10-12 19:35 | XMS_ITS | Encounter Summary ---
Author Organization [employer] ([place], [place], [place], [place]) Address [address] [place] [address] Care Team Providers Care Granite Setter Name Role Phone Unavailable Primary Care Provider Unavailabl e Encounter Details Date Type Department Care Team (Late st Contact Info) Description 03/25/2018 Transcribed Document [place] Family Medicine [facility] [place] [address] ProviderZion MD [address] [place] [address] Social History Tobacco Use Types Packs/Day Years Used Date Smoking Tobacco: Never Assessed Comments Unknown Sex and Gender Information Value Date Recorded Sex Assigned at Not on file Legal Sex Female 4:39 PM CDT Gender Identity Not on file Sexual Orientation Not on file documented as of this encounter Miscellaneous Notes * Cerner Conversion Note - Historical ProviderMD - 03/25/2018 1:44 PM EGG BUYER Patient: ETHAN LOREDO Age: 57 Years Sex: Female : 1960 Subjective Chief Complaint: No complaints, sitting up in chair, wants to go home Physical Exam (1, 6, 12) General: [Alert and oriented, well nourished, no acute distress]. Neurologic: [Awake, alert, and oriented X3, CN II-XII intact]. Eye: [PERRL, EOMI, normal conjuctiva]. HENT: [Normocephalic, clear tympanic membranes, normal hearing, moist oral mucosa, no scleral icterus, no sinus tenderness]. Neck: [Supple, non-tender, no carotid bruits, no JVD, no lymphadenopathy]. Lungs: [Clear to auscultation and percussion, non-labored respiration]. Heart: [Normal rate, regular rhythm, no murmur, gallop or edema]. Abdomen: [Soft, non-tender, non-distended, normal bowel sounds, no masses]. Musculoskeletal: [Normal range of motion and strength, no tenderness or swelling]. Skin: [Skin is warm, dry and pink, no rashes or lesions]. Psychiatric: [Cooperative, appropriate mood and affect]. Vitals & Measurements T: 36.9 ??C TMIN: 36.4 ??C TMAX: 36.9 ??C HR: 72(Monitored) RR: 14 BP: 121/70 SpO2: 95% Intake & Output Intake & Output Totals Last 24 Hours (7a-7a) Intake (6 Events) Medications (550.25 mL) Output (0 Events) No output events found in the last 24 hours. Input Total: 550.25 mL Output Total: 0 mL Balance: 550.25 mL Assessment/Plan 1. Third-degree atrioventricular block, underlying sinus rhythm. 2. Biventricular internal cardioverter-defibrillator Service [employer], this device was reprogrammed, the values as stated above. 3. History of cardiomyopathy, no overt heart failure presently, although proBNP was quite elevated, I think programming to a DDD mode will help a lot in this regard. 4. Urostomy and recent urinary tract infection, she has already been getting intravenous antibiotic treatment for this. 5. Blood cultures 4 out of 4 positive for group b strep appreciate ID consult, agree with BROCK Medications Inpatient Ambien, 5 mg= 1 [...] 300 mg= 1 Cap, Oral, At Bedtime Gastrografin (Adult), 30 mL, Oral, 1-Time heparin, 5000 Units= 1 mL, SubCutaneous, Q8H [...] 429 / 35.4 \ Diagnostic Results EKG Paced Electronically signed by Jorge Alberto, Vinayak Conversion Service Order Expediter Tata at 05/29/2022 8:29 PM CDT documented in this encounter Plan of Treatment Not on file documented as of this encounter Visit Diagnoses Not on filedocumented in this encounter
--- OUTSIDE RECORDS SUMMARY | 2024-10-12 19:35 | XMS_ITS | Encounter Summary ---
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 Name Role Phone Unavailable Primary Care Provider Unavailabl e Encounter Details Date Type Department Care Team (Late st Contact Info) Description 05/07/2018 Transcribed Document [facility] [place] Family Medicine [address] [place] [address] ProviderZion MD [address] [place] [address] Social History Tobacco Use Types Packs/Day Years Used Date Smoking Tobacco: Never Assessed Comments Unknown Sex and Gender Information Value Date Recorded Sex Assigned at Not on file Legal Sex Female 4:39 PM CDT Gender Identity Not on file Sexual Orientation Not on file documented as of this encounter Miscellaneous Notes * Cerner Conversion Note - Historical ProviderMD - 05/07/2018 11:33 AM CDT Pre Procedure Adult Entered On: 05/07/2018 11:37 EDT Performed On: 05/07/2018 11:33 EDT by GAYLA CASE RN Height and Weight, Clinical Dosing Height Source : Stated Height Entry Format : [place] Height, Feet : 5 ft(Converted to: 152 cm, 60 Inch) Height, Inches : 1 Inch(Converted to: 0 ft 1 Inch, 2.54 cm) Clinical Height : 154.94 cm Weight Source : Standing scale Weight Entry Format : [place] Clinical Dosing Weight : 74.09 kg Weight, Pounds : 163 lb Body Surface Area (BSA) : 1.73 m2 Body Mass Index : 30.9 kg/m2 (HI) [place] Body Weight : 47 kg GAYLA CASE RN - 05/07/2018 11:33 EDT Health Histories Smoking Status : 10 or more cigarettes (1/2 pack or more)/day in last 30 days Smokeless Tobacco Status : Never Desires Tobacco Cessation Medication : No Reason for No Tobacco Cessation Medication : Refuses FDA approved medications GAYLA CASE RN - 05/07/2018 11:33 EDT Social History (As Of: 05/07/2018 11:37:59 EDT) Tobacco: Use in Last 12 Months: Cigarettes. Smoking Status Current every day smoker. Years of Use: 40. Packs/Tins Daily: 1. Smoking Cessation Info Provided: Yes. (Last Updated: 02/17/2015 12:04:29 EST by SUSI BOWMAN, RN) Alcohol: Alcohol Use History No. (Last Updated: 05/07/2018 11:33:55 EDT by GAYLA CASE, RN) Substance Abuse: Drug Use Hx: No. Use in Last 12 Months: No. (Last Updated: 05/07/2018 11:34:02 EDT by GAYLA CASE, RN) Infectious Disease History Infectious Disease History : None Fever/Chills Last 48 Hours : No Travel To Regions with Travel Advisories : No Travel Outside [place] Within Last 30 Days : No Contact With Traveler to Advisory Region : No Tuberculosis Symptoms : None GAYLA CASE RN - 05/07/2018 11:33 EDT Anesthesia/Transfusion History Family History of Anesthesia Reaction : Prior transfusion without reaction Transfusion History : Prior anesthesia without reaction Family History of Anesthesia Reaction : None GAYLA CASE RN - 05/07/2018 11:33 EDT Functional Assessment Living Situation : Home Patient Lives With : Alone, Family member(s) Current Home Treatments : None GAYLA CASE RN - 05/07/2018 11:33 EDT Psychosocial History Do You Have a History of the Following? : Anxiety, Depression Currently in Unsafe Situation : No Tried to Harm Yourself in the Past? : No Thoughts of Harming/Killing Yourself : No GAYLA CASE RN - 05/07/2018 11:33 EDT Advance Directive Patient has Advance Directive *Q : No, patient refuses Advance Directive information GAYLA CASE RN - 05/07/2018 11:33 EDT Teaching/Learning Assessment Barriers To Learning : None evident Individuals Taught : Patient, Child GAYLA CASE RN - 05/07/2018 11:33 EDT Education Topics, Periop Preadmission Perioperative Education Grid Arrival Time/Place : Verbalizes understanding CHG Preoperative Bathing/Cloths : Verbalizes understanding Falls : Verbalizes understanding Infection Control : Verbalizes understanding IV's : Verbalizes understanding NPO Status/Directions : Verbalizes understanding Pain Management : Verbalizes understanding Postoperative Care Preparations : Verbalizes understanding Preprocedure Preparations : Verbalizes understanding Preprocedure Tests/Labs : Verbalizes understanding Responsible Adult : Verbalizes understanding GAYLA CASE RN - 05/07/2018 11:33 EDT General Info Contact Password : Stumpdoug Want Family/Rep/Phys Notified of Admit : No Emergency Contact #1 : enoch Emergency Contact #1 Phone Number : daughter Emergency Contact #1 Relationship : [phone] Emergency Contact #2 : . Emergency Contact #2 Phone Number : . Emergency Contact #2 Relationship : . Primary Language : Salvadorean Preferred Communication Mode : Verbal Communication Barrier : None GAYLA CASE RN - 05/07/2018 11:33 EDT Sleep Apnea Risk Assmt Hx of Obstructive Sleep Apnea Diagnosis : No Snore Loudly : No Tired, Fatigued, or Sleepy During Day : No Observed Stopping Breathing During Sleep : No Have/Are Being Treated for Hypertension : No BMI Greater Than 35 kg/m2 : No Age over 50 Years Old : Yes Neck Circumference Greater Than 40 cm : No Gender Male : No STOP-BANG Sleep Apnea Risk Level Score : 1 GAYLA CASE RN - 05/07/2018 11:33 EDT Saúl Scale Saúl Sensory Perception : No impairment Saúl Moisture : Rarely moist Saúl Activity : Walks frequently Saúl Mobility : No limitation Saúl Nutrition : Excellent Saúl Friction and Shear : No apparent problem Saúl Score : 23 GAYLA ACSE RN - 05/07/2018 11:33 EDT Fall Risk Scales ABCs Fall Injury Risk Identification : None SANTACRUZ Hx Falls Immediate/Within 3 Months : No Santacruz Secondary Diagnosis : No SANTACRUZ Use of Ambulatory Aid : None SANTACRUZ IV Therapy or IV Access : Yes Santacruz Gait/Transferring : Weak Santacruz Mental Status : Oriented to own ability Santacruz Fall Risk Score : 30 S[place]UZ Fall Scale Risk Level : 25-45 Medium Risk Beatrice Fall Interventions : Adequate lighting, Assistive devices within reach, Personal items within reach, Reinforced to call for assistance before getting out of bed GAYLA CASE RN - 05/07/2018 11:33 EDT Valuables and Belongings Valuables and Belongings : Clothing Clothing : Common streetwear Clothing Disposition : Bedside, With family EVIE, GAYLA Méndez RN - 05/07/2018 11:33 EDT Electronically signed by Jorge Alberto lawrence Conversion Cnc Wood Lathe Operator Cerner at 05/29/2022 8:46 PM CDT documented in this encounter Plan of Treatment Not on file documented as of this encounter Visit Diagnoses Not on filedocumented in this encounter
--- OUTSIDE RECORDS SUMMARY | 2024-10-12 19:35 | XMS_ITS | Encounter Summary ---
Author Organization [employer] ([place], [place], [place], [place]) Address [address] [place] [address] Care Team Providers Care Medical Or Surgical Instrument Maker Name Role Phone Unavailable Primary Care Provider Unavailabl e Encounter Details Date Type Department Care Team (Late st Contact Info) Description 03/28/2018 Transcribed Document [facility] [place] Medicine [address] [place] [address] ProviderZion MD [address] [place] [address] Social History Tobacco Use Types Packs/Day Years Used Date Smoking Tobacco: Never Assessed Comments Unknown Sex and Gender Information Value Date Recorded Sex Assigned at Not on file Legal Sex Female 4:39 PM CDT Gender Identity Not on file Sexual Orientation Not on file documented as of this encounter Miscellaneous Notes * Cerner Conversion Note - Historical ProviderMD - 03/28/2018 6:07 PM WATER PROJECT MANAGER Care Management Assessment/Plan Entered On: 03/28/2018 18:12 EST Performed On: 03/28/2018 18:07 EST by Ninoska Cuellar, Rn-Water System Operator Ed Care Management Note Anticipated Discharge Date : 04/03/2018 14:00 EST Care Management Note : CM recieved call from Gama at [facility] stating they can take pt at their facility, but not until Saturday, as they now have an agreement with [facility]. CM then spoke with Edie from [facility] and she again confirms they can accept pt at their facility tomorrow. CM updated pt and now pt is agreeable to go to [facility]. She also gave CM permission to speak with Jazmine joshi by phone p [phone]. CM spoke with Jazmine and she is agreeable with plan for [facility], stating its much closer to them, approx 30 min. Pt tells BLAKE that her PCP, Dr. Davis had told her that she was not able to do IV abx from home. Discharge plan will be to go to [facility] in the am. CM updated Dr. Stauffer and he reports he will notify [facility] for tomorrow. CM will cont to follow for ongoing d/c planning/needs. Care Management Note Report : Ninoska Cuellar, Rn-Water System Operator Ed - 03/28/18 16:01:02 [facility] Mariah[facility]us states home cost for Rocephin is $3.70/wk. She states they may be able to contract with SNF to provide abx at pt's cost. She asked CM to have SNF call Paulo at their office to see about arranging. CM called MADELYN Corona with [facility] and she will [facility] to see if this can be [facility]. Updated BS RNAva. CM will cont to follow. Ninoska Cuellar, Rn-Water System Operator Ed - 03/28/18 14:57:29 Called [facility] and spoke with Chiquita and updated her on IV abx needs. SHe will check cost and call CM back to see if bed offer is still on the table. CM left for [facility] to update her, left requesting return phone call. CM updated pt and she appears discouraged that [facility] will not accept her as a pt. She tells CM that she is considering just going home. BLAKE also called Clem with [facility] to argueta abx at home. She states that [facility] may also be able to contract with facility to provide them with abx at their cost. CM faxed info on pt and abx to [facility] f [phone]. CM updated BS RN, Ava. CM will cont to follow. Ninoska Cuellar, Rn-Water System Operator Ed - 03/28/18 14:21:[address] Jones this am and he tells CM that pt is ready for discharge from his standpoint and that ID has a plan in place for IV abx. PT does have a PICC in place. Recieved VM from [facility] with [facility] p [phone] stating they are interested in pt. CM went to BS to speak with pt to discuss bed offers. CM presented bed offers and pt tells CM that she really doesn't want to go to another facility. Pt tells CM that she only wants to go to [facility], as she has been there in the past. [facility] had not make bed offer at this time. CM called and spoke with Gama in admissions at [facility] and she tells CM that per her DON, they do not believe they can meet pt's needs at this time. CM pressed for more information and Gama told CM that she would have DON call her. -CM then spoke with MADELYN Corona at [facility] and she states that pt appears too sick at this time to come to their facility. CM provided her with verbal updates, as well as faxed updates f [phone]. She states they will reevaluate now, knowing [...] pt at this time due to the $3009-3078 IV rocephin cost through 05/04/[address] Diaz orders. Cm to follow for ongoing d/c planning/needs. Stew Porras RN - 03/27/18 16:25:12 edie from [facility] ( ex [phone]) called to make bed offer. bed offers will be presented to pt 03/28. [place] [phone] Stew Porras RN - 03/27/18 15:00:29 spoke to ID who states pt maybe ready for dc as early as 03/28. id and attending PA are recommending SNF. spoke with pt and her dtr, jazmine and informed them of suggestion from drs to dc to snf for iv abx. pt and dtr in agreement and referrlas made via [facility] to the following [place].... [place]. Stew Porras RN - 03/27/18 10:34:34 RRS-43 + for BR[facility] CT consulted and per ID, infection must clear prior to any ant surgical intervention Currnelty on rocephin iv w/bld cx pending Documentation Status Complete : Yes Ninoska Cuellar, Rn-Water System Operator Ed - 03/28/2018 18:07 EST Electronically signed by Jorge Alberto, [facility] Conversion Waste Management Engineer Cerner at 05/29/2022 8:35 PM CDT documented in this encounter Plan of Treatment Not on file documented as of this encounter Visit Diagnoses Not on filedocumented in this encounter
--- OUTSIDE RECORDS SUMMARY | 2024-10-12 19:35 | XMS_ITS | Referral Summary ---
Author Organization [employer] ([place], [place], [place], [place]) Address [address] [place] [address] Care Team Providers Care Senior Director Of Global Commercial Technology Solutions Name Role Phone Unavailable Primary Care Provider Unavailabl e Social History Tobacco Use Types Packs/Day Years Used Date Smoking Tobacco: Never Assessed Comments Unknown Sex and Gender Information Value Date Recorded Sex Assigned at Not on file Legal Sex Female 4:39 PM CDT Gender Identity Not on file Sexual Orientation Not on file Plan of Treatment Not on file
--- OUTSIDE RECORDS SUMMARY | 2024-10-12 19:35 | XMS_ITS | Encounter Summary ---
Author Organization [employer] ([place], [place], [place], [place]) Address [address] [place] [address] Care Team Providers Care Audio Installer Name Role Phone Unavailable Primary Care Provider Unavailabl e Encounter Details Date Type Department Care Team (Late st Contact Info) Description 03/28/2018 Transcribed Document [facility] [place] Family Medicine [address] [place] [address] ProviderZion MD [address] [place] [address] Social History Tobacco Use Types Packs/Day Years Used Date Smoking Tobacco: Never Assessed Comments Unknown Sex and Gender Information Value Date Recorded Sex Assigned at Not on file Legal Sex Female 4:39 PM CDT Gender Identity Not on file Sexual Orientation Not on file documented as of this encounter Miscellaneous Notes * Cerner Conversion Note - Historical ProviderMD - 03/28/2018 2:27 PM CHAIR INSTALLER Care Management Assessment/Plan Entered On: 03/28/2018 14:57 EST Performed On: 03/28/2018 14:27 EST by Ninoska Cuellar Rn-Nurse Practitioner Adult Ed Care Management Note Anticipated Discharge Date : 04/03/2018 14:00 EST Care Management Note : Called [facility] and spoke with Chiquita and updated her on IV abx needs. SHe will check cost and call CM back to see if bed offer is still on the table. CM left for Sheri with [facility] to update her, left requesting return phone call. CM updated pt and she appears discouraged that [facility] will not accept her as a pt. She tells CM that she is considering just going home. BLAKE also called Clem with [facility] to argueta abx at home. She states that [facility] may also be able to contract with facility to provide them with abx at their cost. CM faxed info on pt and abx to [facility] f [phone]. CM updated BS RN, Ava. CM will cont to follow. Care Management Note Report : Ninoska Cuellar, Rn-Nurse Practitioner Adult Ed - 03/28/18 14:21:[address] Jones this am and he tells CM that pt is ready for discharge from his standpoint and that ID has a plan in place for IV abx. PT does have a PICC in place. Recieved VM from [facility] with [facility] p [phone] stating they are interested in pt. CM went to BS to speak with pt to discuss bed offers. CM presented bed offers and pt tells CM that she really doesn't want to go to another facility. Pt tells CM that she only wants to go to [facility], as she has been there in the past. [facility] had not make bed offer at this time. CM called and spoke with Gama in admissions at [facility] and she tells CM that per her DON, they do not believe they can meet pt's needs at this time. CM pressed for more information and Gama told CM that she would have DON call her. -CM then spoke with MADELYN Corona at [facility] and she states that pt appears too sick at this time to come to their facility. CM provided her with verbal updates, as well as faxed updates f [phone]. She states they will reevaluate now, knowing [...] pt at this time due to the $8649-9130 IV rocephin cost through 05/04/[address] Diaz orders. Cm to follow for ongoing d/c planning/needs. Stew Porras, REGULO - 03/27/18 16:25:12 blayne from [facility] ( [facility]) called to make bed offer. bed offers will be presented to pt 03/28. [facility] [phone] Stew Porras, RN - 03/27/18 15:00:29 spoke to ID who states pt maybe ready for dc as early as 03/28. id and attending PA are recommending SNF. spoke with pt and her dtr, jazmine and informed them of suggestion from drs to dc to snf for iv abx. pt and dtr in agreement and referrlas made via [facility] to the following counties.... [place]. Stew Porras, RN - 03/27/18 10:34:34 RRS-43 + for BROCK CT consulted and per ID, infection must clear prior to any ant surgical intervention Currnelty on rocephin iv w/bld cx pending Documentation Status Complete : Yes Ninoska Cuellar, Rn-Nurse Practitioner Adult Ed - 03/28/2018 14:27 EST Electronically signed by Jorge Alberto [facility] Conversion Drawer In Jacquard Loom Cerner at 05/29/2022 8:31 PM CDT documented in this encounter Plan of Treatment Not on file documented as of this encounter Visit Diagnoses Not on filedocumented in this encounter
--- OUTSIDE RECORDS SUMMARY | 2024-10-12 19:35 | XMS_ITS | Encounter Summary ---
Author Organization [employer] ([place], [place], [place], [place]) Address [address] [place] [address] Care Team Providers Care License Registration Examiner Name Role Phone Unavailable Primary Care Provider Unavailabl e Encounter Details Date Type Department Care Team (Late st Contact Info) Description 03/29/2018 Transcribed Document [facility] [place] [address] [place] [address] ProviderZion MD [address] [place] [address] Social History Tobacco Use Types [...] - Zion ProviderMD - 03/29/2018 3:54 PM STARCH TREATING ASSISTANT [address] [place] [address] Patient Copy Patient Information: Name: ETHAN CRONIN Current Date: 03/29/2018 15:54:26 : 1960 Patient Address: [address] [place] [id number] Patient Attending Physician: MELY WHITNEY MD Primary Care Provider: CRUZ, NOT LISTED Primary Care Provider Phone: Discharge Diagnosis: Endocarditis Weight on Admission: 165 lb, 14 oz Comment: Follow-up Instructions: With: Address: When: JOHN TSAI [address] [place] [address] Business (1) Within 1 month With: Address: When: SUJIT DUNBAR [address], [address] [place] [address] Business (1) Within 2 weeks With: Address: When: Follow up with primary care provider Within 1 to 2 weeks With: Address: When: AJAY MARCANO 10:00 AM Comments: [facility] @ 10:00 NPO after midnight Discharge Instructions: Immunizations Documented During Stay: No Immunizations Found Discharge Summary Sent to: [facility] [phone] Special Instructions: Report: [facility] [phone] Heart Failure Discharge Instructions (if any): Stroke Related Discharge Instructions (if any): Warfarin Related Discharge Instructions (if any): Final Medication List: Other Medications ALPRAZolam (ALPRAZolam 0.5 mg oral tablet) 1 Tablet(s) Oral Three Times A Day. aspirin (Aspirin Enteric Coated 81 mg oral delayed release tablet) 1 Tablet(s) Oral Every Day. carvedilol (carvedilol 3.125 mg oral tablet) 1 Tablet(s) Oral Every Day. cefTRIAXone (Rocephin) 2 Gram(s) IV Piggyback Interval Every 12 Hours. citalopram (CeleXA 20 mg oral tablet) 1 Tablet(s) Oral Every Day. clopidogrel (Plavix 75 mg oral tablet) 1 Tablet(s) Oral Every Day. script sent by cardiology. gabapentin (gabapentin 300 mg oral capsule) 1 Capsule(s) Oral At Bedtime. insulin isophane (NPH)-insulin regular (NovoLIN 70/30) 20 [...] oral capsule) 1 Capsule(s) Oral Every Day. zolpidem (Ambien 5 mg oral tablet) 1 Tablet(s) Oral At Bedtime as needed for insomnia. Patient Allergies: No Known Allergies Medication Instructions: [...] difficulty sleeping, and nervousness. Patient education materials: Endocarditis Endocarditis is an infection of the [...] these instructions at home: Medicines ??? Take jvpy-zwn-rswhdlr and prescription medicines only as told by [...] 01/28/2006 Document Revised: 11/09/2016 Document Reviewed: 11/09/2016 Elsevier Interactive Patient Education ? 2017 Elsevier Inc. CIGARETTE SMOKING: The facts are clear, cigarette smoking will shorten your life. Smoking can cause many illnesses along the way. As a healthcare provider, we recommend that you stop smoking. Assistance with quitting is available by contacting 9-615-BWYT-NOW. This is a free resource providing counseling, [...] Be sure to sign up for the [employer] patient portal, which gives you 03/09 access to your medical information ??? including these discharge instructions ??? using your computer, smartphone, or tablet. Just go to [employer] to get started. Questions? Call . [facility] would like to thank you for allowing us to assist you with your healthcare needs. GERTRUDE Mcconnell VERONICA G, (or patient registration representative) have received the above patient education materials/instructions and have verbalized understanding: Patient Signature _ Date/Time Patient Inventory Auditor Signature (if needed) Date/Time Clinician/Hospital Inventory Auditor Signature (if needed) Date/Time documented in this encounter Plan of Treatment Not on file documented as of this encounter Visit Diagnoses Not on filedocumented in this encounter
--- OUTSIDE RECORDS SUMMARY | 2024-10-12 19:35 | XMS_ITS | Encounter Summary ---
Author Organization [email or web address] ([place], [place], [place], [place]) Address [address] [place] [address] Care Team Providers Care Emergency Department Technician Name Role Phone Unavailable Primary Care Provider Unavailabl e Encounter Details Date Type Department Care Team (Late st Contact Info) Description 03/29/2018 Transcribed Document [facility] [place] Family Medicine [address] [place] [address] ProviderZion MD [address] [place] [address] Social History Tobacco Use Types Packs/Day Years Used Date Smoking Tobacco: Never Assessed Comments Unknown Sex and Gender Information Value Date Recorded Sex Assigned at Not on file Legal Sex Female 4:39 PM CDT Gender Identity Not on file Sexual Orientation Not on file documented as of this encounter Miscellaneous Notes * Cerner Conversion Note - Historical ProviderMD - 03/29/2018 3:30 PM EXPLOSIVES TRUCK DRIVER Care Management Assessment/Plan Entered On: 03/29/2018 15:31 EST Performed On: 03/29/2018 15:30 EST by Odalys Bush Rn-Workforce Management AnalystSub Prior Note Anticipated Discharge Date : 03/30/2018 14:00 EST Care Management Note : Patient discharge summary sent through [facility]. Care Management Note Report : Odalys Bush Rn-Workforce Management Analyst - 03/29/18 13:22:06 Confirmed with [facility] that patient can transfer today [phone]; [phone]. Spoke with patient's daughter Jazmine [phone] who plans to transport[address] Dr. Hamilton advised and dishcarge pharmacy aware. Patient should be ready to transport by 15:00. Ninoska Cuellar Rn-Workforce Management Analyst Ed - 03/28/18 20:23:22 CM faxed orders to [facility] for IV abx f [phone] per md orders. CM will need to call [facility] to notify them of final d/c plan per MD orders p [phone]. CM to follow for ongoing d/c planning/needs. Ninoska Cuellar, Rn-Workforce Management Analyst Ed - 03/28/18 18:12:15 CM recieved call from Gama at [facility] stating they can take pt at their facility, but not until Saturday, as they now have an agreement with [facility]. CM then spoke with Edie from [facility] and she again confirms they can accept pt at their facility tomorrow. CM updated pt and now pt is agreeable to go to [facility]. She also gave CM permission to speak with Jazmine joshi by phone p [phone]. CM spoke with Jazmine and she is agreeable with plan for [facility], stating its much closer to them, approx 30 min. Pt tells CM that her PCP, Dr. Davis had told her that she was not able to do IV abx from home. Discharge plan will be to go to [facility] in the am. CM updated Dr. Stauffer and he reports he will notify [facility] for tomorrow. CM will cont to follow for ongoing d/c planning/needs. Ninoska Cuellar, Rn-Workforce Management Analyst Ed - 03/28/18 16:01:02 [facility] Clem states home cost for Rocephin is $3.70/wk. She states they may be able to contract with SNF to provide abx at pt's cost. She asked CM to have SNF call Paulo at their office to see about arranging. CM called [facility] and she will call [facility] to see if this can be arranged. Updated BS RNAva. CM will cont to follow. Ninoska Cuellar, Rn-Workforce Management Analyst Ed - 03/28/18 14:57:29 Called [facility] and spoke with Chiquita and updated her on IV abx needs. SHe will check cost and call CM back to see if bed offer is still on the table. CM left for [facility] with [facility] to update her, left requesting return phone call. CM updated pt and she appears discouraged that [facility] will not accept her as a pt. She tells CM that she is considering just going home. BLAKE also called Clem with [facility] to argueta abx at home. She states that [facility] may also be able to contract with facility to provide them with abx at their cost. CM faxed info on pt and abx to [facility] f [phone]. CM updated BS RN, Ava. CM will cont to follow. Ninoska Cuellar, Rn-Workforce Management Analyst Ed - 03/28/18 14:21:[address] Jones this am and he tells CM that pt is ready for discharge from his standpoint and that ID has a plan in place for IV abx. PT does have a PICC in place. Recieved VM from [facility] with [facility] p [phone] stating they are interested in pt. CM went to BS to speak with pt to discuss bed offers. CM presented bed offers and pt tells CM that she really doesn't want to go to another facility. Pt tells CM that she only wants to go to [facility], as she has been there in the past. [facility] had not make bed offer at this time. BLAKE called and spoke with Gama in admissions at [facility] and she tells CM that per her DON, they do not believe they can meet pt's needs at this time. CM pressed for more information and Gama told CM that she would have DON call her. -BLAKE then spoke with MADELYN Corona at [facility] and she states that pt appears too sick at this time to come to their facility. CM provided her with verbal updates, as well as faxed updates f [phone]. She states they will reevaluate now, knowing abx needs. She asked for bld cx results and CM called microbiology dept and was told that bld cx x2 from 03/23 were still negative, but would not be complete until this evening. CM informed facility of this information. BLAKE then recieved callback from Gama with admissions who states after rereview, they will not be able to take pt at this time due to the $5681-9854 IV rocephin cost through 05/04/[address] Diaz orders. Cm to follow for ongoing d/c planning/needs. Stew Porras, RN - 03/27/18 16:25:12 edie from [facility] ( ex [address]) called to make bed offer. bed offers will be presented to pt 03/28. [facility] [phone] Stew Porras, RN - 03/27/18 15:00:29 spoke to ID who states pt maybe ready for dc as early as 03/28. id and attending PA are recommending SNF. spoke with pt and her dtr, jazmine and informed them of suggestion from drs to dc to snf for iv abx. pt and dtr in agreement and [facility] [place].... [place]. Stew Porras, REGULO - 03/27/18 10:34:34 RRS-43 + for BROCK CT consulted and per ID, infection must clear prior to any ant surgical intervention Currnelty on rocephin iv w/bld cx pending Documentation Status Complete : Yes Odalys Bush Rn-Workforce Management Analyst - 03/29/2018 15:30 EST Info/List/Choices Provided Patient Offered Choice/Affiliations Explained : Yes List/Info Provided Pt/Fam/Support Person : FDC facilities Odalys Bush Rn-Workforce Management Analyst - 03/29/2018 15:30 EST Final Discharge Disposition Note-CM Final Discharge Disposition Note-CM : Transport by Family. Discharge To Care Management : SNF with Medicare Certification-03 Name of Receiving Facility/Provider- : [facility] Odalys Bush Rn-Workforce Management Analyst - 03/29/2018 15:30 EST documented in this encounter Plan of Treatment Not on file documented as of this encounter Visit Diagnoses Not on filedocumented in this encounter
--- OUTSIDE RECORDS SUMMARY | 2024-10-12 19:35 | XMS_ITS | Encounter Summary ---
Author Organization [employer] ([place], [place], [place], [place]) Address [address] [place] [address] Care Team Providers Care Technical Asst Name Role Phone Unavailable Primary Care Provider Unavailabl e Encounter Details Date Type Department Care Team (Late st Contact Info) Description 03/29/2018 Transcribed Document [facility] [place] Family Medicine [address] [place] [address] ProviderZion MD [address] [place] [address] Social History Tobacco Use Types [...] - Historical ProviderMD - 03/29/2018 1:22 PM TRAIN DIRECTOR Discharge Instructions Entered On: 03/29/2018 13:23 EST Performed On: 03/29/2018 13:22 EST by Odalys Bush Rn-Berry Picker Machine Operator DC Instructions HWD Discharge Summary Sent to : Joshua [phone] Special Instructions : Report: Joshua [phone] Odalys Bush Rn-Berry Picker Machine Operator - 03/29/2018 13:22 EST Electronically signed by Jorge Alberto [facility] Conversion Online Content Editor Cerner at 05/29/2022 8:39 PM CDT documented in this encounter Plan of Treatment Not on file documented as of this encounter Visit Diagnoses Not on filedocumented in this encounter
--- OUTSIDE RECORDS SUMMARY | 2024-10-12 19:35 | XMS_ITS | Encounter Summary ---
Author Organization [employer] ([place], [place], [place], [place]) Address [address] [place] [address] Care Team Providers Care Strategic Development Manager Name Role Phone Unavailable Primary Care Provider Unavailabl e Encounter Details Date Type Department Care Team (Late st Contact Info) Description 03/25/2018 Transcribed Document [facility] [place] [address] [place] [address] ProviderZion MD [address] [place] [address] Social History Tobacco Use Types Packs/Day Years Used Date Smoking Tobacco: Never Assessed Comments Unknown Sex and Gender Information Value Date Recorded Sex Assigned at Not on file Legal Sex Female 4:39 PM CDT Gender Identity Not on file Sexual Orientation Not on file documented as of this encounter Miscellaneous Notes * Cerner Conversion Note - Historical ProviderMD - 03/25/2018 5:00 AM SUBSTITUTE NURSE Chart Check - Review Order Profile Entered On: 03/25/2018 4:05 EST Performed On: 03/25/2018 5:00 EST by Carolina Valenzuela RN Chart Check Chart Reviewed Date and Time : 03/25/2018 4:05 EST Carolina Valenzuela RN - 03/25/2018 4:05 EST documented in this encounter Plan of Treatment Not on file documented as of this encounter Visit Diagnoses Not on filedocumented in this encounter
--- OUTSIDE RECORDS SUMMARY | 2024-10-12 19:35 | XMS_ITS | Encounter Summary ---
Author Organization [employer] ([place], [place], [place], [place]) Address [address] [place] [address] Care Team Providers Care Reimbursement Specialist Name Role Phone Unavailable Primary Care Provider Unavailabl e Encounter Details Date Type Department Care Team (Late st Contact Info) Description 03/27/2018 Transcribed Document [facility] [place] [facility] [place] [address] ProviderZion MD [facility] [place] [address] Social History Tobacco Use Types Packs/Day Years Used Date Smoking Tobacco: Never Assessed Comments Unknown Sex and Gender Information Value Date Recorded Sex Assigned at Not on file Legal Sex Female 4:39 PM CDT Gender Identity Not on file Sexual Orientation Not on file documented as of this encounter Miscellaneous Notes * Cerner Conversion Note - Historical ProviderMD - 03/27/2018 9:05 AM RECOVERY MANAGER Patient: ETHAN LOREDO Age: 57 Years Sex: Female : 1960 Subjective Chief Complaint: No complaints, sitting up in bed Physical Exam (1, 6, 12) General: [Alert [...] mood and affect]. Vitals & Measurements T: 36.4 ??C TMIN: 36.2 ??C TMAX: 36.4 ??C HR: 75(Monitored) RR: 16 BP: 110/68 SpO2: 92% Intake & Output Intake & Output Totals Last 24 Hours (7a-7a) Intake (4 Events) Medications (100 mL) Output (0 Events) No output events found in the last 24 hours. Input Total: 100 mL Output Total: 0 mL Balance: 100 mL Assessment/Plan 1. Third-degree atrioventricular block, underlying [...] of 4 positive for group b strep BROCK shows vegetation on prosthetic valve, consult cardiology ID service on the case. To decide about attempt for antibiotic RX and watching pt closely vs Removal of MV prosth and /BIV ICD removal. She is PM dependant Medications Inpatient Ambien, 5 mg= 1 Tab, [...] Florastor, 250 mg= 1 Cap, Oral, Daily furosemide, 40 mg= 1 Tab, Oral, Daily [...] 25 Units, SubCutaneous, QPM Lab Results MAR 27 07:36 136 104 H 33 / H 137 4.0 L 20 0.90 \ MAR 25 06:37 \ 11.4 / 9.0 H 429 / 35.4 \ Diagnostic Results EKG BiV paced Echo BROCK Impression: Normal sized left ventricle. Increased left ventricular wall thickness. Normal left ventricular systolic function. Estimated EF 55 +/- 5%. Stable bioprosthetic mitral valve. Echodensities possibly due to vegetation visible on the medial (~ 4 mm) and lateral (~7 mm) aspect of prosthesis on atrial side. No mitral regurgitation. Electronically signed by Jorge Alberto [facility] Conversion Monotype Keyboard Operator Cerner at 05/29/2022 8:29 PM CDT documented in this encounter Plan of Treatment Not on file documented as of this encounter Visit Diagnoses Not on filedocumented in this encounter
--- OUTSIDE RECORDS SUMMARY | 2024-10-12 19:35 | XMS_ITS | Encounter Summary ---
Author Organization [employer] ([place], [place], [place], [place]) Address [address] [place] [address] Care Team Providers Care Fixed Income Portfolio Manager Name Role Phone Unavailable Primary Care Provider Unavailabl e Encounter Details Date Type Department Care Team (Late st Contact Info) Description 03/29/2018 Transcribed Document [facility] [place] [address] [place] [address] ProviderZion MD [address] [place] [address] Social History Tobacco Use Types Packs/Day Years Used Date Smoking Tobacco: Never Assessed Comments Unknown Sex and Gender Information Value Date Recorded Sex Assigned at Not on file Legal Sex Female 4:39 PM CDT Gender Identity Not on file Sexual Orientation Not on file documented as of this encounter Miscellaneous Notes * Cerner Conversion Note - Zion ProviderMD - 03/29/2018 11:59 PM DINKEY PRESS OPERATOR Patient: ETHAN CRONIN Age: 57 years Sex: Female : 1960 Associated Diagnoses: None Author: ANIKA SAHU MD Admission date: 03/23/2009 Discharge date: 03/29/2018 Discharge Diagnosis: endocarditis, POA. Echodensities possibly due to vegetation visible on the medial (~ 4 mm) and lateral (~7 mm) aspect of prosthesis on atrial side. Group B streptococcus sepsis from 03/19/18 in 4/4 bottles OSH. Bradycardia, POA, resolved hx of CAD s/p CABG and Pacemaker Norovirus, POA, seems resolved Hypotension, resolved History of tobacco abuse. Chronic obstructive pulmonary disease without acute exacerbation, POA History of bladder cancer status post cystectomy with ileal conduit in 2006. Moderate protein deficient malnutrition, POA. Consults: ====== cardiology EP CTS ID Procedures: ========= TTE BROCK CT abd Diet: === cardiac diet Condition at discharge: stable Physical Exam: Labs: ==== Labs (Last four charted values) WBC 8.2 [...] 10) PT 11.3 (FEB 10) INR 1.0 (MAR 23) AST 23 (MAR 26) 29 (MAR 23) ALT 32 (MAR 26) 28 (MAR 23) ALK P 121 (MAR 26) 108 (MAR 23) T Bili 0.4 (MAR 26) 0.5 (MAR 23) PTN 6.9 (MAR 26) 6.5 (MAR 23) ALB L 2.5 (MAR 26) L 2.4 (MAR 23) Troponin <0.015 (MAR 23) Discharge Medications: ALPRAZolam 0.5 mg oral tablet 0.5 mg [...] 25 mcg = 1 Tab, Oral, Daily nicotine 21 mg/24 hr transdermal film, extended release 1 Patch, TransDermal, Daily NovoLIN 70/30 20 Units, SubCutaneous, QAM NovoLIN 70/30 10 Units, SubCutaneous, QPM Plavix 75 mg oral tablet 75 mg = 1 Tab, Oral, Daily pravastatin 20 mg oral tablet 20 mg = 1 Tab, Oral, At Bedtime Rocephin 2 Gram, IV Piggyback, [id number]...until 05/04/18 for 6 weeks ID recommendations: continue Rocephin 2 g IV every 12 hours to continue until 05/04/18 for 6 weeks. Then may suppress afterwards with penicillin VK 250 mg by mouth twice a day for life. Follow up: ======= Follow up with PCP in 1-2 wks Follow up with Cardiology in 2-4 wks BROCK in 4-[address] Alan at [facility]. follow up with ID in 2 weeks post discharge. follow up with CTS in 4 wks Disposition: ======== Rehab Discharge Summary: 57-year-old white female with history of bladder cancer, atrial flutter, pacemaker placement 2015, hypertension, DM2, COPD, pancreatitis, who recently had blood cultures obtained at [facility] on 03/19/18 for fever which were positive in 4 out of 4 bottles for group B Streptococcus. Patient was to start IV antibiotics but was found to have bradycardia and was admitted to [facility] on 03/23/17. Urine culture obtained at [facility] was positive for multiple bacteria consistent with [...] past. She has had the pacemaker since 2015. EP was consulted for bradycardia. pacemaker has been interogated and bradycardia resolved. pt was started on IV abx. Blood cultures 4 out of 4 positive for group b strep. ID was consulted. repeated blood cultures here remained negative. 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 No mitral regurgitation. cardiology was consulted as well as CTS. EP recommended about attempt for antibiotic RX and watching pt closely vs Removal of MV prosth and /BIV ICD removal as She is PM dependant. Cardiology too recomended Conservative initial Rx w/ repeat BROCK in - is reasonable option given her high Surgical risk. CTS mentioned that Patient high-risk for redo sternotomy with redo mitral valve replacement. Recommend continued IV antibiotics per ID with repeat BROCK in a couple of weeks to reassess mitral valve endocarditis. ID recommended Rocephin 2 g IV every 12 hours to continue until 05/04/18 for 6 weeks. Then may suppress afterwards with penicillin VK 250 mg by mouth twice a day for life with Follow CBC, CMP, CRP weekly while on IV antibiotics and follow up with ID in 2 weeks post discharge. repeated blood cultures here remained negative. today she is doing well, vitally stable and will discharge to rehab with continuing abx. insulin dose has been adjusted. Time spent 45 minuts documented in this encounter Plan of Treatment Not on file documented as of this encounter Visit Diagnoses Not on filedocumented in this encounter
--- OUTSIDE RECORDS SUMMARY | 2024-10-12 19:35 | XMS_ITS | Encounter Summary ---
Author Organization [employer] ([place], [place], [place], [place]) Address [address] [place] [address] Care Team Providers Care Shroudman Name Role Phone Unavailable Primary Care Provider Unavailabl e Encounter Details Date Type Department Care Team (Late st Contact Info) Description 05/07/2018 Transcribed Document [facility] [place] [facility] [place] [address] ProviderZion MD [address] [place] [address] Social History Tobacco Use Types Packs/Day Years Used Date Smoking Tobacco: Never Assessed Comments Unknown Sex and Gender Information Value Date Recorded Sex Assigned at Not on file Legal Sex Female 4:39 PM CDT Gender Identity Not on file Sexual Orientation Not on file documented as of this encounter Miscellaneous Notes * Cerner Conversion Note - Zion ProviderMD - 05/07/2018 1:16 PM CDT [address] [place] [address] Patient Copy Patient Information: Name: ETHAN CRONIN Current Date: 05/07/2018 13:16:44 : 1960 Patient Address: [address] [place] [id number] Patient Attending Physician: AJAY MARCANO MD-CAR Primary Care Provider: SUJIT DAWKINS (REF)IFTIKHAR Primary Care Provider Discharge Diagnosis: Weight on Admission: 163 lb, 0 oz Comment: Follow-up Instructions: With: Address: When: AJAY MARCANO [address] [facility], [address] [place] [phone] Business (1) Within 2 to 3 days Comments: Follow-up as instructed Discharge Instructions: Diet after Discharge: Regular diet as tolerated Activity after Discharge: Rest and relax today Driving after Discharge: Do not drive, Other: for 24 hours post procedure Showering/Bathing:May shower Wound/Incision Care after Discharge: Keep operative site/wound site clean and dry Immunizations Documented During Stay: No Immunizations Found [...] difficulty sleeping, and nervousness. Patient education materials: Transesophageal Echocardiogram Transesophageal echocardiography (BROCK) is a [...] 11/25/2009 Document Revised: 07/05/2016 Document Reviewed: 07/30/2013 [employer] Interactive Patient Education ? 2017 [employer]. CIGARETTE SMOKING: The facts are clear, cigarette smoking will shorten your life. Smoking can cause many illnesses along the way. As a healthcare provider, we recommend that you stop smoking. Assistance with quitting is available by contacting 9-338-BSCJ-NOW. This is a free resource providing counseling, [...] Be sure to sign up for the [employer] patient portal, which gives you 03/09 access to your medical information ??? including these discharge instructions ??? using your computer, smartphone, or tablet. Just go to [employer] to get started. Questions? Call . [facility] would like to thank you for allowing us to assist you with your healthcare needs. GERTRUDE Mcconnell VERONICA GAY, (or sales representative printing paper) have received the above patient education materials/instructions and have verbalized understanding: Patient Signature _ Date/Time Patient Death Surveys Coder Signature (if needed) Date/Time Clinician/Hospital Death Surveys Coder Signature (if needed) Date/Time Electronically signed by Jorge Alberto, Merlin Conversion Retail Client Solutions Consultant Cerner at 05/29/2022 8:56 PM CDT documented in this encounter Plan of Treatment Not on file documented as of this encounter Visit Diagnoses Not on filedocumented in this encounter
--- NOTE | 2024-10-12 19:36 | ECG_ITS ---
APPROVED REPORT Exam: Resting ECG HR:90 bpm ECG Measurements Heart Rate 90 AXES QRSd 101 QRS 67 QT 393 T 270 QTc 441 Conclusion UNCERTAIN IRREGULAR RHYTHM ELECTRONIC VENTRICULAR PACEMAKER -- CONTOUR ANALYSIS BASED ON INTRINSIC RHYTHM ST DEVIATION AND MODERATE T-WAVE ABNORMALITY, CONSIDER LATERAL ISCHEMIA [-0.1+ mV T-WAVE IN I/aVL/V5/V6] ABNORMAL ECG Significant chatter limits diagnostic ability of this EKG, and V paced without obvious ST elevation in anatomical contiguous leads. Electronically signed by : SOFYA LAINEZ, 10/12/2024 23:39:11
--- OUTSIDE RECORDS SUMMARY | 2024-10-12 19:36 | XMS_ITS | Clinical Summary ---
[facility] Address [address] [place] [address] Care Team Providers Care Cashier Clerk Name Role Phone Cosme Davis MD Primary Care Provider Social History Tobacco Use Types Packs/Day Years Used Date Smoking Tobacco: Never Assessed Abuse Screen Answer Date Recorded Unsafe at Home or Work/School Not on file Feels Threatened by Someone? Not on file 01/2023 Does Anyone Keep You from Co ntacting Others or Doint Things Outside the Home? Not on file 11/22/2022 Physical Sign of Abuse Present Not on file 1 Housing Stability Answer Date Recorded Current Living Arrangements Not on file 11/11 Potentially Unsafe Housing Conditions Not on paul e 11/22/2022 Family and Community Support Answer Palmer e Recorded Help with Day-to-Day Activities Not on file 11/22/2022 Lonely or Isolated Not on file 11/22/2022 Employment Answer Date Recorded Do you want help finding or keeping work or a hiro b? Not on file 11/22/2022 Disabilities Answer Date Recorded Concentrating, Remembering, or Making Decisions Difficulty Not on file 11/22/2022 Doing Errands Independently Difficulty Not on fi le 11/22/2022 Education Answer Date Recorded Help with school or training? Not on file Preferred Language Not on file 11/22/2022 Comments Unknown Sex and Gender Information Value Date Recorded Sex Assigned at Not on file Legal Sex Female 4:08 PM EDT Gender Identity Not on file Sexual Orientation Not on file Plan of Treatment Health Maintenance Due Date Last Done Comments ANNUAL PHYSICAL 1960 Annual Gynecologic Pelvic and Breast Exam 1960 HEPATITIS C SCREENING 1960 TDAP/TD VACCINES (1 - Tdap) 1981 MAMMOGRAM 2002 COLOGUARD 06/04/2007 COLON CANCER SCREENING 5 YEAR SIGMOIDOSCOPY 06/04/2007 COLONOSCOPY 06/04/2007 COLORECTAL CANCER SCREENING 06/04/2007 CT COLONOGRAPHY 06/04/2007 FECAL OCCULT BLOOD TEST 06/04/2007 FIT Testing (1 year) 06/04/2007 Pneumococcal Vaccine 50+ (1 of 1 - PCV) 2012 ZOSTER VACCINE (1 of 2) 2012 COVID-19 Vaccine (1 - season) 2023 INFLUENZA VACCINE 11/11/2024 [place] [address] MEDICARE A & B Care Teams Cashier Clerk Relationship Specialty Start Date End Date Cosme Davis MD [address] [facility] [address] ATTN: [place] [address] PCP - General Emergency Medicine 06/04/18
--- OUTSIDE RECORDS SUMMARY | 2024-10-12 19:36 | XMS_ITS | Encounter Summary ---
Author Organization [employer] ([place], [place], [place], [place]) Address [address] [place] [address] Care Team Providers Care Physician Underwriter Name Role Phone Unavailable Primary Care Provider Unavailabl e Encounter Details Date Type Department Care Team (Late st Contact Info) Description 03/27/2018 Transcribed Document [facility] [facility] [place] [facility] [place] [address] ProviderZion MD [address] [place] [id number] Social History Tobacco Use Types Packs/Day Years Used Date Smoking Tobacco: Never Assessed Comments Unknown Sex and Gender Information Value Date Recorded Sex Assigned at Not on file Legal Sex Female 4:39 PM CDT Gender Identity Not on file Sexual Orientation Not on file documented as of this encounter Miscellaneous Notes * Cerner Conversion Note - Zion ProviderMD - 03/27/2018 9:17 AM PRESCHOOL ASSISTANT Patient: ETHAN CRONIN Age: 57 years Sex: Female : 1960 Associated Diagnoses: None Author: CARROLL HIGH MD-INF Basic Information CC: Sepsis bacteremia 03/19/18 4/4 bottles for Group b strep ([facility]), mitral prosthetic valve endocarditis History of Present Illness 57-year-old white female with history of bladder cancer, atrial flutter, pacemaker placement 2016, hypertension, DM2, COPD, pancreatitis, who recently had blood cultures obtained at [facility] on 03/19/18 for fever which were positive in 4 out of 4 bottles for group B Streptococcus. Patient was to start IV antibiotics but was found to have bradycardia and was admitted to [facility] on 03/23/17. I was consulted on 03/25/17. The patient had been started on vancomycin and Rocephin. Urine culture obtained at [facility] was positive for multiple bacteria consistent [...] valvular dysfunction. No high fevers. Tolerating antibiotics. Review of Systems Constitutional: Weakness, Fatigue, Decreased [...] cefTRIAXone (Rocephin) - 2 Gram, IV Piggyback, [id number], infuse over 30 Minute(s), Routine Anticoagulant heparin [...] 68 (MAR 27 03:00) L 55 (MAR 26:15) 75 (MAR 26 18:20) MAP 79 (MAR 27 03:00) 71 (MAR 26 23:15) 83 (MAR 26 16:53) SpO2 L 92 (MAR 27 03:00) L 87 (MAR 26:15) 94 (MAR 26 11:39) General: Alert and oriented, Mild distress. Eye: Pupils are equal, round and reactive to light, Extraocular movements are intact, Normal conjunctiva. HENT: Normocephalic, Oral mucosa is moist, No pharyngeal erythema. Neck: Supple, Non-tender, No jugular venous distention, No lymphadenopathy. Respiratory: Lungs are clear to auscultation, Respirations are non-labored, Breath sounds are equal. Cardiovascular: Normal rate, No gallop, Normal peripheral perfusion. Gastrointestinal: Soft, Non-tender, Non-distended, Normal bowel sounds, No organomegaly. Lymphatics: No lymphadenopathy neck, axilla, groin. Musculoskeletal: Normal range of motion, Normal strength, No tenderness. Integumentary: Warm, Dry, [place], No pallor, No rash, Left chest wall pacemaker site without erythema or fluctuance, Right arm PICC okay. Neurologic: Alert, Oriented, No focal deficits. Cognition and Speech: Oriented, Speech clear and coherent. Psychiatric: Cooperative, Appropriate mood & affect. Review / Management Results review: Labs (Last four charted values) WBC 8.8 (MAR 26) 9.0 (MAR 12) 9.3 (FEB 11) 9.0 (FEB 10) HB 11.3 (FEB 13) 11.4 (FEB 12) L 9.9 (FEB 11) L 10.8 (FEB 10) HCT 36.0 (FEB 13) 35.4 (FEB 12) L [...] 10) Troponin <0.015 (FEB 10) , ACC: [id number] ORDER: Culture Blood DATE: 03/23/2018 17:49 SOURCE: Blood SITE: Reports Pre 03/26/2018 23:01 No growth at 3 days. Pre 03/25/2018 23:01 No growth at 2 days. Pre 03/24/2018 23:02 No growth at 1 day. Pre 03/24/2018 16:03 Culture less than 24 Hrs old == ACC: [id number] ORDER: Culture Blood DATE: 03/23/2018 17:49 SOURCE: Blood SITE: Reports Pre 03/26/2018 23:01 No growth at 3 days. Pre 03/25/2018 23:01 No growth at 2 days. Pre 03/24/2018 23:02 No growth at 1 day. Pre 03/24/2018 16:03 Culture less than 24 Hrs old == . Impression and Plan 1. Group B streptococcus sepsis 03/19/18 in 4 out of 4 blood culture bottles positive at [facility] (spoke to Maurice Spencer, at [facility]). BROCK consistent with mitral valve endocarditis, prosthetic. New finding. CT scan of the abdomen and pelvis 03/25 unremarkable. 1a. Group B streptococcus mitral valve endocarditis, acute. New. 2. Urine culture polymicrobial positive culture from [...] to continue until 05/04/18 for [address] surgery evaluation. If patient is not clinically clear her infection, may need surgery. Plan has been discussed with patient including side effects of medications and line. At increased risk for side effects of abx and line, readmission. Discussed with family of the patient, and discussed with Dr. Perez's service, cardiology. apartment house manager: Please arrange for outpatient IV antibiotics with Rocephin 2 g IV every 12 hours until 05/04/18. Follow CBC, CMP, CRP weekly while on IV antibiotics. Fax orders to [phone], and call [phone] with final arrangements. Arrange for follow-up with me in 2 weeks post discharge. documented in this encounter Plan of Treatment Not on file documented as of this encounter Visit Diagnoses Not on filedocumented in this encounter
--- OUTSIDE RECORDS SUMMARY | 2024-10-12 19:36 | XMS_ITS | Encounter Summary ---
Author Organization [employer] ([place], [place], [place], [place]) Address [address] [place] [address] Care Team Providers Care Cigar Packer And Grader Name Role Phone Unavailable Primary Care Provider Unavailabl e Encounter Details Date Type Department Care Team (Late st Contact Info) Description 03/27/2018 Transcribed Document [facility] [place] [address] [place] [address] ProviderZion MD [address] [place] [address] Social History Tobacco Use Types Packs/Day Years Used Date Smoking Tobacco: Never Assessed Comments Unknown Sex and Gender Information Value Date Recorded Sex Assigned at Not on file Legal Sex Female 4:39 PM CDT Gender Identity Not on file Sexual Orientation Not on file documented as of this encounter Miscellaneous Notes * [employer]ner Conversion Note - Historical ProviderMD - 03/27/2018 5:00 AM PHYSICAL THERAPY RESIDENT Chart Check - Review Order Profile Entered On: 03/27/2018 5:00 EST Performed On: 03/27/2018 5:00 EST by Gabriela Reyes RN Chart Check Chart Reviewed Date and Time : 03/27/2018 5:05 EST [employer] Initiated/Discontinued as Appropriate : Yes All Active Orders Reviewed : Yes Gabriela Reyes, REGULO - 03/27/2018 5:00 EST documented in this encounter Plan of Treatment Not on file documented as of this encounter Visit Diagnoses Not on filedocumented in this encounter
--- OUTSIDE RECORDS SUMMARY | 2024-10-12 19:36 | XMS_ITS | Encounter Summary ---
Author Organization [employer] [facility] ([place], [place], [place], [place]) Address [address] [place] [address] Care Team Providers Care Wellhead Pumper Name Role Phone Unavailable Primary Care Provider Unavailabl e Encounter Details Date Type Department Care Team (Late st Contact Info) Description 03/27/2018 Transcribed Document [facility] [place] Family Medicine [address] [place] [address] ProviderZion MD [address] [place] [address] Social History Tobacco Use Types Packs/Day Years Used Date Smoking Tobacco: Never Assessed Comments Unknown Sex and Gender Information Value Date Recorded Sex Assigned at Not on file Legal Sex Female 4:39 PM CDT Gender Identity Not on file Sexual Orientation Not on file documented as of this encounter Miscellaneous Notes * Cerner Conversion Note - Historical ProviderMD - 03/27/2018 4:23 PM TAXONOMY TEACHER Care Management Assessment/Plan Entered On: 03/27/2018 16:25 EST Performed On: 03/27/2018 16:23 EST by Stew Porras, RN Care Management Note Anticipated Discharge Date : 04/03/2018 14:00 EST Care Management Note : blayne from [facility] ( ex 108) called to make bed offer. bed offers will be presented to pt 03/28. dtr will provide transportationashflagler [phone] Care Management Note Report : Stew Porras RN - 03/27/18 15:00:29 spoke to ID who states pt maybe ready for dc as early as 03/28. id and attending PA are recommending SNF. spoke with pt and her dtr, jazmine and informed them of suggestion from drs to dc to snf for iv abx. pt and dtr in agreement and referrlas made via [facility] to the following counties.... [place]. Stew Porras, REGULO - 03/27/18 10:34:34 RRS-[id number] + for BROCK CT consulted and per ID, infection must clear prior to any ant surgical intervention Currnelty on rocephin iv w/bld cx pending Documentation Status Complete : Yes Stew Porras, REGULO - 03/27/2018 16:23 EST Electronically signed by [facility], [facility] Consultant Cerner at 05/29/2022 8:47 PM CDT documented in this encounter Plan of Treatment Not on file documented as of this encounter Visit Diagnoses Not on filedocumented in this encounter
--- OUTSIDE RECORDS SUMMARY | 2024-10-12 19:36 | XMS_ITS | Clinical Summary ---
Author Organization [employer] ([place], [place], [place], [place]) Address [address] [place] [address] Care Team Providers Care Harvest Field Ticketer Name Role Phone Unavailable Primary Care Provider [...]
--- OUTSIDE RECORDS SUMMARY | 2024-10-12 19:36 | XMS_ITS | Encounter Summary ---
Author Organization [employer] ([place], [place], [place], [place]) Address [address] [place] [address] Care Team Providers Care Abrasive Mixer Name Role Phone Unavailable Primary Care Provider Unavailabl e Encounter Details Date Type Department Care Team (Late st Contact Info) Description 03/27/2018 Transcribed Document [facility] [place] [address] [place] [address] ProviderZion MD [address], [place] [id number] Social History Tobacco Use Types Packs/Day Years Used Date Smoking Tobacco: Never Assessed Comments Unknown Sex and Gender Information Value Date Recorded Sex Assigned at Not on file Legal Sex Female 4:39 PM CDT Gender Identity Not on file Sexual Orientation Not on file documented as of this encounter Miscellaneous Notes * Cerner Conversion Note - Historical ProviderMD - 03/27/2018 2:00 AM PROCEDURAL NURSE Research Nurse Practitioner Details Entered On: 03/27/2018 5:00 EST Performed On: 03/27/2018 2:00 EST by Gabriela Reyes, RN Order Details Transport Mode Order Detail : Wheelchair Isolation Precautions Order Detail : Contact precautions Order Detail : 0 IV Order Detail : 1 Oxygen Order Detail : 0 Nurse Collect Order Detail : 1 Lift/Transfer : Independent Central Line Order Detail : Yes Room Service : Appropriate Arterial Line : No Gabriela Reyes, RN - 03/27/2018 4:59 EST documented in this encounter Plan of Treatment Not on file documented as of this encounter Visit Diagnoses Not on filedocumented in this encounter
--- OUTSIDE RECORDS SUMMARY | 2024-10-12 19:36 | XMS_ITS | Encounter Summary ---
Author Organization [employer] ([place], [place], [place], [place]) Address [address] [place] [address] Care Team Providers Care Croze Machine Operator Name Role Phone Unavailable Primary Care Provider Unavailabl e Encounter Details Date Type Department Care Team (Late st Contact Info) Description 03/27/2018 Transcribed Document [facility] [place] Family Medicine [facility] [place] [address] ProviderZion MD [address] [place] [id number] Social History Tobacco Use Types Packs/Day Years Used Date Smoking Tobacco: Never Assessed Comments Unknown Sex and Gender Information Value Date Recorded Sex Assigned at Not on file Legal Sex Female 4:39 PM CDT Gender Identity Not on file Sexual Orientation Not on file documented as of this encounter Miscellaneous Notes * Cerner Conversion Note - Historical ProviderMD - 03/27/2018 10:05 AM FEATURE WRITER Patient: ETHAN LOREDO Age: 57 Years Sex: Female : 1960 Reason for Consultation Mitral Valve Endocarditis s/p MVR 2016 History of Present Illness Mrs. Loredo is a 57-year old female who is s/p high-risk CABGx3, MVR (29mm Mosaic), TVV, and MAZE on 02/22/[address] Rodriguez. She is also s/p PPM and ileal conduit s/p bladder cancer 2006. About a weak ago, she started feeling sick. She reports weakness, nausea and vomiting. She went to outside ED where she was found to be septic with positive blood cultures for group B Streptococcus. A PICC line was placed and she was discharged on home IV antibiotics. She presented back to the ED for bradycardia and was then transferred her for further evaluation. EP was consulted and has reprogrammed her Medtronic biventricular internal cardioverter-defibrillator Medtronic. ID has been consulted and is managing her IV antibiotics. BROCK yesterday revealed an EF 55% with mitral valve vegetations without mitral regurgitation. Cardiothoracic surgery has been consulted for prosthetic valve endocarditis. Records from her previous admission back in 2016 revealed a totally occluded left ICA, greater than 50% right ICA stenosis, high-grade stenosis of the right common carotid origin with significant tapering, 50% stenosis of the left subclavian artery proximally and distally to the vertebral origin, probable innominate stenosis measuring 50-60%, dominant right vertebral artery with occluded proximal left vertebral artery. FEV1 from 2016 was 0.61L. Review of Systems Constitutional: [No fevers, chills] Eye: [No recent visual problems] HEENT: [No recent hearing changes] Respiratory: [No shortness of breath, cough] Cardiovascular: [No Chest pain] Gastrointestinal: [Reports N/V] Genitourinary: [See hpi] Keon/Lymph: [Negative for history of anticoagulation] Musculoskeletal: [No back pain] Integumentary: [No rash] Neurologic: [Reports weakness] Psychiatric: [No anxiety, depression] Physical Exam Vitals & Measurements T: 36.4 ??C TMIN: 36.2 ??C TMAX: 36.4 ??C HR: 75(Monitored) RR: 16 BP: 110/68 SpO2: 92% General: [Alert and oriented, well nourished, no acute distress]. Neurologic: [Awake, alert, and oriented X3, CN II-XII intact]. Eye: [EOMI, normal conjunctiva]. HENT: [Normocephalic, normal hearing, moist oral mucosa]. Neck: [Supple, non-tender]. Lungs: [Clear to auscultation and percussion, non-labored respiration]. Heart: [Normal rate, regular rhythm, no murmur, gallop or edema]. Abdomen: [Soft, non-tender, non-distended]. Musculoskeletal: [Normal range of motion and strength]. Skin: [Skin is warm, dry and pink]. Psychiatric: [Cooperative, appropriate mood and affect]. Assessment/Plan Breakdown (mechanical) of other cardiac electronic device, initial encounter, Breakdown (mechanical) of other cardiac electronic device, initial encounter Prosthetic Mitral Valve Endocarditis Group B Streptococcus Sepsis MVCAD PAD Severe COPD Tobacco Abuse Patient high-risk for redo sternotomy with redo mitral valve replacement. Recommend continued IV antibiotics per ID with repeat BROCK in a couple of weeks to reassess mitral valve endocarditis. Problem List/Past Medical History Ongoing Anxiety Atrial flutter Bladder cancer CAD - Coronary artery disease Cardiomyopathy COPD (chronic obstructive pulmonary disease) Depression Diabetes HLD - Hyperlipidemia HTN - Hypertension Hyperlipidemia Hypertension Pancreatitis Tobacco abuse PAD Procedure/Surgical History INSERT CARD RSYNC DEFIB PULS GEN IN CHEST SUBCU/FASCIA, PERC (02/28/2015), INSERTION OF DEFIB LEAD INTO L VENTRICLE, PERC APPROACH (02/28/2015), INSERTION OF DEFIBRILLATOR LEAD INTO R ATRIUM, PERC APPROACH (02/28/2015), BYPASS 1 COR ART FROM L INT MAMMARY, OPEN APPROACH (02/22/2015), BYPASS 2 COR ART FROM AORTA WITH AUTOL VN, OPEN APPROACH (02/22/2015), DESTRUCTION OF LEFT ATRIUM, OPEN APPROACH (02/22/2015), DESTRUCTION OF RIGHT ATRIUM, OPEN APPROACH (02/22/2015), OCCLUSION OF LEFT ATRIAL APPENDAGE, OPEN APPROACH (02/22/2015), PERFORMANCE OF CARDIAC OUTPUT, CONTINUOUS (02/22/2015), PERFORMANCE OF CARDIAC PACING, CONTINUOUS (02/22/2015), REPLACEMENT OF MITRAL VALVE WITH ZOOPLASTIC, OPEN APPROACH (02/22/2015), SUPPLEMENT MITRAL VALVE WITH SYNTH SUB, OPEN APPROACH (02/22/2015), ULTRASONOGRAPHY OF RIGHT AND LEFT HEART, TRANSESOPHAGEAL (02/22/2015), FLUOROSCOPY OF L COM CAROTID USING L OSM CONTRAST (02/18/2015), INSERTION OF INFUSION DEV INTO L RADIAL ART, PERC APPROACH (02/17/2015), INSERTION OF INFUSION DEV INTO L SUBCLAV VEIN, PERC APPROACH (02/17/2015), MONITORING OF ARTERIAL PRESSURE, PERIPHERAL, PERC APPROACH (02/17/2015), TRANSFUSE NONAUT RED BLOOD CELLS IN PERIPH VEIN, PERC (02/17/2015), CABG (2015), MAZE (2015), CHOLECYSTECTOMY, cystectomy with ileal conduit, hysterectomy, Mitral Valve replacment; bioprosthetic, umbilical hernia repair. Medications Inpatient Ambien, 5 mg= 1 Tab, [...] QAM NovoLIN 70/30, 25 Units, SubCutaneous, QPM Allergies No Known Allergies Social History Tobacco Use in Last 12 Months: Cigarettes. Smoking Status Current every day smoker. Years of Use: 40. Packs/Tins Daily: 1. Smoking Cessation Info Provided: Yes. 61.5 pack year history of tobacco abuse. Denies alcohol or illicit drug use. Family History Denies family history of heart disease. Lab Results MAR 27 07:36 136 104 H 33 / H 137 4.0 L 20 0.90 \ Diagnostic Results MRA NECK 2016 1. Occlusion of the left internal carotid artery at its origin. 2. Focal concentric stenosis of the origin of the right internal carotid artery which is difficult to grade but greater than 50%. 3. There appears to be high-grade stenosis of the right common carotid origin with significant tapering. Evaluation of this region is always limited by artifact. 4. Apparent 50% stenosis of the left subclavian artery proximally and distally to the vertebral origin. 5. Probable innominate stenosis measuring 50-60%. 6. Dominant right vertebral artery with occluded proximal left vertebral artery. BROCK 03/26/18 Normal sized left ventricle. Increased left ventricular wall thickness. Normal left ventricular systolic function. Estimated EF 55 +/- 5%. Stable bioprosthetic mitral valve. Echodensities possibly due to vegetation visible on the medial (~ 4 mm) and lateral (~7 mm) aspect of prosthesis on atrial side. No mitral regurgitation. Electronically signed by Vinayak Azul Conversion Palliative Care Nurse Practitioner Cerner at 05/29/2022 8:49 PM CDT documented in this encounter Plan of Treatment Not on file documented as of this encounter Visit Diagnoses Not on filedocumented in this encounter
[2024-10-12 19:46] LABS: POC Glucose,Bedside 123 gm/dL (70-110)
[2024-10-12 20:00] LABS: Hematocrit 22.6 % (37.0-47.0); Hemoglobin 7.0 g/dL (12.2-16.2); Immature Granulocytes % 0.9 %; Mean Corpuscular HGB Conc 31.0 g/dL (31.8-35.4); Mean Corpuscular Hemoglobin 23.6 pg (27.0-31.2); Mean Corpuscular Volume 76.4 fl (81-99); Nucleated Red Blood Cells % 0 %; Platelet Count 276 K/mm3 (142-424); Red Blood Count 2.96 M/mm3 (4.20-5.40); Red Cell Distribution Width-SD 54.4 fL; White Blood Count 10.9 K/mm3 (4.8-10.8)
[2024-10-12] MEDS: TET/DIPHTH/PERT-ADULT 0.5ML SYRINGE 0.5 ML IM (20:01)
[2024-10-12] MEDS: 0.9 % SODIUM CHLORIDE 50 ML VIAL IV (20:13)
[2024-10-12] MEDS: SODIUM CHLORIDE 0.9% 10ML SYR (RAD ONLY) 10 ML IV (20:13)
[2024-10-12] MEDS: IOPAMIDOL-370 (76%);100ML BOTTLE 80 ML IV (20:13)
[2024-10-12 20:14] LABS: Activated Partial Thrombo Time 29.0 seconds (22.8-30.6); INR 1.19 (0.9-1.1); Prothrombin Time 13.0 seconds (10.1-12.5)
[2024-10-12 20:17] LABS: Albumin Level 4.1 g/dl (3.5-5.0); Chloride 110 mmol/L (98-107); Sodium 132 mmol/L (136-145)
[2024-10-12 20:19] LABS: Creatinine Clearance Estimated 13 mL/min (50-200); Creatinine,Serum 3.90 mg/dl (0.52-1.04); Estimated Glomerular Filt Rate 12 ml/min (>60); GFR (African American) 14 ML/MIN (>60)
[2024-10-12 20:20] LABS: Alanine Aminotransferase 16 U/L (12-78); Albumin/Globulin Ratio 1.4 (1.1-1.8); Alkaline Phosphatase 70 U/L (38-126); Anion Gap 17.1 mEq/L (5-15); Aspartate Amino Transferase 42 U/L (14-36); Bilirubin,Total 0.7 mg/dl (0.2-1.3); Carbon Dioxide 11 mmol/L (22.0-30.0); Globulin 2.9 g/dL (1.3-3.2); Glucose 88 mg/dl (74-100); Lipase 159 U/L (23-300); Total Protein,Serum 7.0 g/dl (6.3-8.2)
[2024-10-12 20:21] LABS: Calcium 8.5 mg/dl (8.4-10.2)
--- NOTE | 2024-10-12 20:24 | PC.NURSE ---
pt back to room from CT
[2024-10-12 20:37] LABS: Blood Urea Nitrogen 84 mg/dl (7-17); Free T4 (Free Thyroxine) 2.31 ng/dl (0.78-2.19); Potassium 6.1 mmoL/L (3.5-5.1)
[2024-10-12 20:51] LABS: Thyroid Stimulating Hormone 4.01 uIU/mL (0.465-4.68)
[2024-10-12] MEDS: INSULIN HUMAN REGULAR 100 UNITS/ML 10ML VIAL 5 UNIT IVP (21:02)
[2024-10-12] MEDS: DEXTROSE 50% 50ML SYRINGE (CRASH CART) 50 ML IVP (21:03)
[2024-10-12] MEDS: CALCIUM GLUC IN NACL, ISO-OSM 2 GM/100 ML BAG IV (21:03)
--- NOTE | 2024-10-12 21:10 | PC.NURSE ---
Pt right arm skin tears cleansed, non adherent bandages applied, wrapped with curlex
[2024-10-12 21:47] LABS: Microscopic, Urine URINE MICROSCOPIC (MICROSCOPIC)
--- NOTE | 2024-10-12 21:47 | PC.NURSE ---
Pt urostomy bag changed, stoma cleansed, UA sent to lab with urine from new bag.
--- NOTE | 2024-10-12 21:52 | PC.NURSE ---
spoke with regarding transfer
[2024-10-12 21:55] LABS: Bilirubin,Urine Negative (Negative); Color,Urine YELLOW (Yellow); Glucose,Urine (UA) TRACE (Negative); Ketones,Urine Negative (Negative); Leukocyte Esterase,Urine Negative (Negative); PH,Urine 6.5 (5.0-8.5); Protein,Urine Negative (Negative); Specific Gravity, Urine <= 1.005 (1.005-1.030); Urobilinogen,Urine 0.2 EU/dl (0.2)
[2024-10-12 22:01] LABS: POC Glucose,Bedside 167 gm/dL (70-110)
--- NOTE | 2024-10-12 22:01 | PC.NURSE ---
pt requested her emergency contacts be changed in our system. Pt is a/o x 4 , contacts changed to her sisters by Sis
--- NOTE | 2024-10-12 22:04 | PC.NURSE ---
MD [place] speaking to [facility] at this time
[2024-10-12] MEDS: LACTATED RINGERS 1000ML 1,000 ML 999 ML IV (22:20)
--- NOTE | 2024-10-12 22:25 | PC.NURSE ---
report called to Elham RAJPUT at [facility]
--- NOTE | 2024-10-12 22:26 | PC.NURSE ---
Contacted [employer] for transfer flight to there [place] was unavailable, checking with [employer] for flight
--- NOTE | 2024-10-12 22:30 | PC.NURSE ---
recieved a call from [employer] stated the ETA is 23 minutes away
[2024-10-12 22:35] LABS: Bacteria,Urine Trace /lpf; Squamous Epithelial Cell,Urine Occasional #/hpf (0-5)
--- NOTE | 2024-10-12 23:01 | PC.NURSE ---
[employer] arrived
--- NOTE | 2024-10-12 23:10 | PC.NURSE ---
Called report to Anjana Masonmont
== END 2024-10-12 23:36 | disposition home or self-care (01) ==
PROVIDERS: Emergency Provider Emergency Medicine
DX: S32.511A Fracture of superior rim of right pubis, initial encounter for closed fracture (principal); S32.591A Other specified fracture of right pubis, initial encounter for closed fracture; E87.5 Hyperkalemia; I95.9 Hypotension, unspecified; D64.9 Anemia, unspecified; N17.9 Acute kidney failure, unspecified; F17.210 Nicotine dependence, cigarettes, uncomplicated; W19.XXXA Unspecified fall, initial encounter
CPT/HCPCS: 70450; 71045; 71275; 72125; 74174; 80053; 81001; 82962; 83690; 84439; 84443; 85025; 85610; 85730; 90471; 90715; 93005; 96361; 96365; 96366; 96375; 99285; 99291; G0390; J0612; J7120; Q9967

== ENCOUNTER 2024-11-15 19:52 | Inpatient (IN) | payer MEDICARE, SELFPAY ==
--- OUTSIDE RECORDS SUMMARY | 2024-11-13 11:20 | XMS_ITS | Encounter Summary ---
Author Organization Healthcare Address [address] [place] [address] Care Team Providers Care Product Introduction Manager Name Role Phone Cosme Davis MD Primary Care Provider [phone] Reason for Referral * Consultation (Routine) - Authorized Specialty Diagnoses / Procedures Referred By Yogi tapia Referred To Contact Physical Therapy Diagnoses Pain in pelvis Smiley Negrete PA [address] [place] [facility] [address] [place] [address] Phone: tel: fax: Referral ID Status Reason Start Date Expiration Date Visits Requested Visits Authorized [id number] Authorized Consult and Treat 11/13/2024 05/15/2026 1 1 Reason for Visit * Reason Comments Follow-up Encounter Details Date Type Department Care Team (Late st Contact Info) Description 11/13/2024 11:20 AM EDT [facility] Visit [facility] [address], 1st Floor [address] [place] [address] Paulo Darnell MD [address] [place] [facility] [address] [place] [address] Pain in pelvis (Primary Dx) [...] and Family Not on file 10/13/2024 Attends Christianity Services Not on file 10/13 Active Member [...] any time in the past [address] [facility], were you homeless or living in a long-term (including now)? No 10/13/2024 [facility] Utilities Answer Date Recorded In the past 12 months has [employer], gas, oil, or water [employer] threatened to shut off services in your [...] follow up. She has been in a correction facility. She has been working with physical [...] by mouth daily., Disp: , Rfl: HYDROcodone-acetaminophen ([place]) 5-325 MG tablet, , Disp: , Rfl: [...] Info) Description 01/21/2025 1:30 PM EST Appointment [facility] Lab [address] Floor [address], [address] [place] [address] 01/21/2025 2:00 PM EST Appointment [facility] [address] [place] [address] 01/21/2025 2:40 PM EST Office Visit [facility] [address] [place] [address] Jose Rosario MD [address] [place] [address] Scheduled Referrals Name Type Priority [...] documented as of this encounter Care Teams Product Introduction Manager Relationship Specialty Start Date End Date Cosme Davis MD [address] [place] [address] PCP - General 06/24/20 documented as of this encounter
--- OUTSIDE RECORDS SUMMARY | 2024-11-13 11:20 | XMS_ITS | Encounter Summary ---
Author Organization Healthcare Address [address] [place] [address] Care Team Providers Care Expansion Joint Finisher Name Role Phone Cosme Davis MD Primary Care Provider [phone] Reason for Referral * Consultation (Routine) - Authorized Specialty Diagnoses / Procedures Referred By Yogi tapia Referred To Contact Physical Therapy Diagnoses Pain in pelvis Smiley Negrete PA [address] [facility] [address] [place] [address] Phone: tel: fax: Referral ID Status Reason Start Date Expiration Date Visits Requested Visits Authorized [id number] Authorized Consult and Treat 11/13/2024 05/15/2026 1 1 Reason for Visit * Reason Comments Follow-up Encounter Details Date Type Department Care Team (Late st Contact Info) Description 11/13/2024 11:20 AM EDT Office Visit [facility] [address] [place] [address] Paulo Darnell MD [address] [facility] [address] [place] [address] Pain in pelvis (Primary Dx) [...] and Family Not on file 10/13/2024 Attends Mandaeism Services Not on file 10/13 Active Member [...] any time in the past [address] [facility], were you homeless or living in a fpc (including now)? No 10/13/2024 [facility] Utilities Answer Date Recorded In the past 12 months has [employer], gas, oil, or water [employer] threatened to shut off services in your [...] follow up. She has been in a long term facility. She has been working with physical [...] by mouth daily., Disp: , Rfl: HYDROcodone-acetaminophen ([place]) 5-325 MG tablet, , Disp: , Rfl: [...] Description 01/21/2025 1:[address] [facility] [address] [place] [address] 01/21/2025 2:[address] [facility] [address] [place] [address] 01/21/2025 2:40 PM EST Office Visit [facility] [address] [place] [address] Jose Rosario MD [address] [place] [address] Scheduled Referrals Name Type Priority [...] documented as of this encounter Care Teams Expansion Joint Finisher Relationship Specialty Start Date End Date Cosme Davis MD [address] [place] [address] PCP - General 06/24/20 documented as of this encounter
--- OUTSIDE RECORDS SUMMARY | 2024-11-13 11:23 | XMS_ITS | Encounter Summary ---
Author Organization Healthcare Address [address] [place] [address] Care Team Providers Care Electrician Manager Name Role Phone Cosme Davis MD Primary Care Provider [phone] Encounter Details Date Type Department Care Team (Latest Contact Info) Description 11/13/2024 11:23 AM EDT - 11/13/2024 11:59 PM EDT Hospital Encounter [place] [facility] [address] [place] [address] Pain in pelvis Discharge Disposition: Home or [...] time in the past 12 m [facility], were you homeless or living in a long term (including now)? No 10/13/2024 [facility] Utilities Answer Date Recorded In the past 12 months has th e [employer], gas, oil, or water company threatened to [...] Inhale 2 puffs 4 times a day. ALPRAZolam (Xanax) 0.25 MG tablet Take 1 tablet by mouth 2 times a day as needed for anxiety. 30 tablet 10/30/2024 amiodarone (Pacerone) 200 MG tablet Take 2 [...] Take 1 tablet by mouth daily. 08/21/2018 folic acid (Folvite) 1 MG tablet Take 1 tablet by mouth daily. 10/31/2024 5 HYDROcodone-acet aminophen ([place]) 5-325 MG tablet 11/02/2024 insulin glargine (Lantus) [...] DAY 07/21/2024 insulin syringe-needle U-100 31G X 06/26 1 mL misc 12/23/2023 Lantus SoloStar 100 UNIT/ML injection pen 10/30/2024 levothyroxine (Synthroid, Levoxyl) 25 MCG tablet Take by mouth daily. 08/21/2018 midodrine (Proamatine) 10 MG tablet Take 1 tablet by mouth every 12 hours. 10/30/2024 5 mirtazapine (Remeron) 15 MG tablet Take 1 [...] 01/21/2025 1:30 PM EST Appointment [facility] [address] [place] [address] 01/21/2025 2:00 PM EST Appointment [facility] [address] [place] [address] 01/21/2025 2:40 PM EST Office Visit [facility] [address] [place] [address] Jose Rosario MD [id number] [place] [address] documented as of this encounter Procedures Procedure [...] 11/13/2024 12:19 PM Final report signed by hTomas Kunz MD on 11/13/2024 12:21 PM Paulo [...] documented as of this encounter Care Teams Electrician Manager Relationship Specialty Start Date End Date Cosme Davis MD [address] [place] [address] PCP - General 06/24/20 documented as of this encounter
--- OUTSIDE RECORDS SUMMARY | 2024-11-13 11:23 | XMS_ITS | Encounter Summary ---
Author Organization Healthcare Address [address] [place] [address] Care Team Providers Care Agricultural Equipment Design Engineer Name Role Phone Cosme Davis MD Primary Care Provider [phone] Encounter Details Date Type Department Care Team (Latest Contact Info) Description 11/13/2024 11:23 AM EDT - 11/13/2024 11:59 PM EDT Hospital Encounter [place] [facility] [address] 1[address] [place] [address] Pain in pelvis Discharge Disposition: Home or [...] and Family Not on file 10/13/2024 Attends Yaz[employer] Services Not on file 10/13 Active Member [...] any time in the past 12 m [facility], were you homeless or living in a mcc (including now)? No 10/13/2024 [facility] Utilities Answer Date Recorded In the past 12 months has th e [employer], gas, oil, or water company threatened to [...] by mouth daily. 10/31/2024 5 HYDROcodone-acet aminophen ([place]) 5-325 MG tablet 11/02/2024 insulin glargine (Lantus) [...] Info) Description 01/21/2025 1:30 PM EST Appointment [facility] [address] [place] [address] 01/21/2025 2:00 PM EST Appointment [facility] [address] [place] [address] 01/21/2025 2:40 PM EST Office Visit [facility] [address] [place] [address] Jose Rosario MD [id number] [place] [address] documented as of this encounter Procedures Procedure [...] documented as of this encounter Care Teams Agricultural Equipment Design Engineer Relationship Specialty Start Date End Date Cosme Davis MD [address] [place] [address] PCP - General 06/24/20 documented as of this encounter
[2024-11-15] VITALS (7 sets, daily range): BP systolic 125–153; BP diastolic 55–115; PULSE 88–104; RESP 15–31; TEMP 36.5; O2SAT 92–100; BMI 37.8
--- OUTSIDE RECORDS SUMMARY | 2024-11-15 19:59 | XMS_ITS | Clinical Summary ---
Author Organization [facility] Address [address] [place] [address] Phone Care Team Providers Care Babbitter Name Role Phone Kar RAJPUT, Willa Molina Unavailable Conditions or Problems Problem Name Problem Code Onset Date Status Entry Date Provider Comment Standard Description Annotate Other obesity due to excess calories 344580826 (SNOMED CT) 06/03 Active 06/03 Sharona Annamaria Simple obesity Nicotine dependence 36395091 (SNOMED CT) 06/03 Active 06/03 Sharona Yin Nicotine dependence Coronary artery disease, S/P CABG 83072136 (SNOMED CT) 04/11 Active 04/11 Elvira Beth Coronary arteriosclerosis ARF due to infection 700202318 (SNOMED CT) 04/11 Active 04/11 Elvira Beth Acute renal failure due to ischemia Heart valve prosthesis, infection/inf lammatory reaction, subsequent encounter T82.6xxD (ICD-10-CM ) 04/11 Active 04/11 Elvira Beth 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, subsequent encounter Acute and subacute bacterial endocarditis 259431491 (SNOMED CT) 04/11 Active 04/11 Elvira Beth Acute and subacute bacterial endocarditis Group B strep sepsis A40.1 (ICD-10-CM ) 04/11 Active 04/11 Elvira Beth Sepsis due to streptococcus, group B DM Type II 97728267 (SNOMED CT) 04/11 Active 04/11 Elvira Beth Type 2 diabetes mellitus Hypoalbuminem ia 136291863 (SNOMED CT) 04/11 Active 04/11 Elvira Beth Hypoalbuminemia Medications Medication Instructions Start Date Stop Date Generic Name NDC Provider CEFTRIAXONE SODIUM 2 GM SOLR 2gm IV Q12hrs/ [facility] [phone] Plan to start at [facility] 04/18/18 to do 2xper day infusion. CEFTRIAXONE SODIUM 99461360777 Frida Morales PENICILLIN V POTASSIUM 250 MG TABS 1 by mouth twice a day for life PENICILLIN V POTASSIUM 52040269893 Gama Diaz MD PENICILLIN V POTASSIUM 250 MG/5ML SOLR 1 by mouth twice a day 30 days PENICILLIN V POTASSIUM 37260207448 Edie Hooks RN PENICILLIN V POTASSIUM 250 MG TABS 1 by mouth twice a day 30 days PENICILLIN V POTASSIUM 21275500736 Edie Hooks RN PENICILLIN V POTASSIUM 250 MG/5ML SOLR 1 by mouth twice a day 30 days PENICILLIN V POTASSIUM 82781019202 Gama Diaz MD PENICILLIN V POTASSIUM 250 MG TABS 1 by mouth twice a day 30 days PENICILLIN V POTASSIUM 31429975415 Gama Diaz MD CARDIZEM 120 MG TABS 1 tab once daily DILTIAZEM HCL 48579343549 Tahira Lucero VITAMIN D (CHOLECALCIFEROL ) 25 MCG (1000 UT) CAPS as instructed CHOLECALCIFEROL 23464289685 Tahira Lucero CEFTRIAXONE SODIUM 2 GM SOLR 2gm IV Q12hrs/ [facility] [phone] Plan to start at [facility] 04/18/18 to do 2xper day infusion. CEFTRIAXONE SODIUM 54368802725 Willa Lakhani RN PRAVASTATIN SODIUM 20 MG TABS Take one by mouth daily PRAVASTATIN SODIUM 04302069628 Garima Restrepo PLAVIX 75 MG TABS Take one by mouth daily CLOPIDOGREL BISULFATE 08907446763 Garima Restrepo NOVOLIN 70/30 (70-30) 100 UNIT/ML SUSP 20 units in AM, 10 units in PM INSULIN NPH ISOPHANE & REGULAR 87482028008 Garima Restrepo [facility] NICOTINE 21 MG/24HR PT24 1 patch daily NICOTINE 10369627883 Garima Floriandox LEVOTHYROXINE SODIUM 25 MCG TABS Take one by mouth daily LEVOTHYROXINE SODIUM 08761565388 Garima Floriandox HUMALOG 100 UNIT/ML SUBCUTANEOUS SOLUTION sliding scale INSULIN LISPRO 68458181816 Garima Floriandox GABAPENTIN 300 MG CAPS Take one by mouth daily GABAPENTIN 61227595549 Garima Floriandox FLORASTOR 250 MG CAPS Take one by mouth daily SACCHAROMYCES BOULARDII 15326382828 Garima Floriandox CELEXA 20 MG TABS Take one by mouth daily CITALOPRAM HYDROBROMIDE 63912523305 Garima Floriandox CARVEDILOL 3.125 MG TABS Take one by mouth daily CARVEDILOL 89040858161 Garima Lazarox ADULT ASPIRIN REGIMEN 81 MG ORAL TABLET DELAYED RELEASE Take one by mouth daily ASPIRIN 43002495480 Garima Lazarox AMBIEN 5 MG TABS Take/use as needed. ZOLPIDEM TARTRATE 69321786782 Garima Floriandox ALPRAZOLAM 0.5 MG TABS Take one by mouth 3 times daily, morning, afternoon and evening. ALPRAZOLAM 73093294721 Garima Floriandox CEFTRIAXONE SODIUM 2 GM SOLR 2gm IV Q24hrs/ [place] [phone] CEFTRIAXONE SODIUM 14925890125 Edie Hooks RN Medications Administered No information [...] [Ratio] by Automated count Lab Report: COMPREHENSIVE CA TABOLIC PANEL GFRC 47 mL/min/1 .73m2 >60 L Glomerular Filtration Rate Calculation Office Visit: Room 3 MEDS REVIEW Done Documenta tion of current medications (procedure) DIET SUSTAINABILITY PROJECT COORDINATOR yes Dietary management education, guidance, and counseling (procedure) ORALTOBACUSE Never Tobacco smoking status SMOK STATUS Current every day smoker Tobacco smoking status Lab Report: COMPREHENSIVE CA TABOLIC PANEL, MISCELLANEOUS REFERRAL, SED R ... [...] reactive protein [Mass/volume] in Serum or Plasma Snip.[id number] Devices-unk C-REACTIVE PROTEIN N GE use only - [...] Date CPT-[facility] Continue oral antibiotics 20 02/03/14 CPT-88161 CMP [id number] CBC with Differential 2019 CPT-17294 C- reactive protein CPT-sl STAT Labs CPT-35151 [facility] [id number] CBC with Differential 2018 CPT-46111 C- reactive protein CPT-Cooral Continue oral antibiotics 20 30/08/23 CPT-25620 CMP [id number] CBC with Differential 2018 CPT-21023 C- reactive protein CPT-Cooral Continue oral antibiotics 20 31/05/23 CPT-PICREM PICC Removal CPT-DC Discontinue IV antibiotics 2 CPT-jodi New Oral Antibiotic CPT-ca Continue IV antibiotics 2018 CPT-26871 CMP [id number] CBC with Differential 2018 CPT-30656 C- reactive protein Vital Signs Date Name [...]
--- OUTSIDE RECORDS SUMMARY | 2024-11-15 20:00 | XMS_ITS | Encounter Summary ---
Author Organization [employer] ([place], [place], [place], [place]) Address [address] [place] [address] Care Team Providers Care Wound Care Specialist Name Role Phone Unavailable Primary Care Provider Unavailabl e Encounter Details Date Type Department Care Team (Late st Contact Info) Description 03/28/2018 Transcribed Document [facility] [place] [address] [place] [address] ProviderZion MD [address] [place] [address] Social History Tobacco Use Types [...] - Historical ProviderMD - 03/28/2018 6:07 PM PHARMACEUTICAL OFFICER Care Management Assessment/Plan Entered On: 03/28/2018 18:12 EST Performed On: 03/28/2018 18:07 EST by Ninoska Cuellar, Rn-Interior Design Coordinator Ed Care Management Note Anticipated Discharge Date : 04/03/2018 14:00 EST Care Management Note : CM recieved call from Gama at [facility] stating they can take pt at their facility, but not until Saturday, as they now have an agreement with [facility]. CM then spoke with Edie from [facility] and she again confirms they can accept pt at their facility tomorrow. CM updated pt and now pt is agreeable to go to [facility]. She also gave CM permission to speak with Jazmine joshi by phone p [phone]. CM spoke with Jazmine and she is agreeable with plan for [facility], stating its much closer to them, approx 30 min. Pt tells BLAKE that her PCP, Dr. Davis had told her that she was not able to do IV abx from home. Discharge plan will be to go to [facility] in the am. CM updated Dr. Stauffer and he reports he will notify [facility] for tomorrow. CM will cont to follow for ongoing d/c planning/needs. Care Management Note Report : Ninoska Cuellar, Rn-Interior Design Coordinator Ed - 03/28/18 16:01:02 [facility] home cost for Rocephin is $3.70/wk. She states they may be able to contract with SNF to provide abx at pt's cost. She asked CM to have SNF call Paulo at their office to see about arranging. CM called MADELYN Corona with [facility] and [facility]. Updated BS RNAva. CM will cont to follow. Ninoska Cuellar, Rn-Interior Design Coordinator Ed - 03/28/18 14:57:29 Called [facility] and spoke with Chiquita and updated her on IV abx needs. SHe will check cost and call CM back to see if bed offer is still on the table. CM left for [facility] with [facility] to update her, left requesting return phone call. CM updated pt and she appears discouraged that [facility] will not accept her as a pt. She tells CM that she is considering just going home. BLAKE also called Clem with [facility] to argueta abx at home. She states that [facility] may also be able to contract with facility to provide them with abx at their cost. CM faxed info on pt and abx to [facility] f [phone]. CM updated BS RN, Ava. CM will cont to follow. Ninoska Cuellar, Rn-Interior Design Coordinator Ed - 03/28/18 14:21:[address] Jones this am and he tells CM that pt is ready for discharge from his standpoint and that ID has a plan in place for IV abx. PT does have a PICC in place. Recieved VM from [facility] with [facility] p [phone] stating they are interested in pt. CM went to BS to speak with pt to discuss bed offers. CM presented bed offers and pt tells CM that she really doesn't want to go to another facility. Pt tells CM that she only wants to go to [facility], as she has been there in the past. [facility] had not make bed offer at this time. CM called and spoke with Gama in admissions at [facility] and she tells CM that per her DON, they do not believe they can meet pt's needs at this time. CM pressed for more information and Gama told CM that she would have DON call her. -CM then spoke with MADELYN Corona at [facility] and she states that pt appears too sick at this time to come to their facility. CM provided her with verbal updates, as well as faxed updates f [phone]. She states they will reevaluate now, knowing [...] pt at this time due to the $4322-7371 IV rocephin cost through 05/04/[address] Diaz orders. Cm to follow for ongoing d/c planning/needs. Stew Porras RN - 03/27/18 16:25:12 edie from [facility] ( [phone]) called to make bed offer. bed offers will be presented to pt 03/28. dtr will provide [place] [phone] Stew Porras RN - 03/27/18 15:00:29 spoke to ID who states pt maybe ready for dc as early as 03/28. id and attending PA are recommending SNF. spoke with pt and her dtr, jazmine and informed them of suggestion from drs to dc to snf for iv abx. pt and dtr in agreement and referrlas made via [facility] to the following counties.... [place]. Stew Porras RN - 03/27/18 10:34:34 RRS-43 + for BROCK CT consulted and per ID, infection must clear prior to any ant surgical intervention Currnelty on rocephin iv w/bld cx pending Documentation Status Complete : Yes Ninoska Cuellar, Rn-Interior Design Coordinator Ed - 03/28/2018 18:07 EST Electronically signed by Jorge Alberto, [facility] Conversion Teaching Manager Cerner at 05/29/2022 8:35 PM CDT documented in this encounter Plan of Treatment Not on file documented as of this encounter Visit Diagnoses Not on filedocumented in this encounter
--- OUTSIDE RECORDS SUMMARY | 2024-11-15 20:00 | XMS_ITS | Encounter Summary ---
Author Organization [employer] ([place], [place], [place], [place]) Address [address] [place] [address] Care Team Providers Care Frit Coater Name Role Phone Unavailable Primary Care Provider Unavailabl e Encounter Details Date Type Department Care Team (Late st Contact Info) Description 03/27/2018 Transcribed Document [facility] [place] [address] [place] [address] ProviderZion MD [address] [place] [address] Social History Tobacco Use Types [...] - Historical ProviderMD - 03/27/2018 10:33 AM CEILING CLEANER Care Management Assessment/Plan Entered On: 03/27/2018 10:34 [...] Patient History Note Report : DEEPA GALDAMEZ, Mathematical Engineering Technician - 03/26/18 17:47:16 Talked w/ this 57 yr old W F transferred here from [facility] w/ bradycardia, positive blood cultures/strep B sepsis bactremia. PMH includes: bladder cancer, CAD s/p CABG, MVR, PPM plcmt (for which pt has had no F/U), pancreatitis, , COPD, DM, HTN, HLD, depression and anxiety. Pt underwent BROCK today due to concern for possible infected pacemaker (report not in yet). She is currently on 2gm IV rocephin, which [facility] says she will need until 04/20/18. Pt [facility] w/ her [facility]anged [facility], claims she is indep [...]
--- OUTSIDE RECORDS SUMMARY | 2024-11-15 20:00 | XMS_ITS | Encounter Summary ---
Author Organization [employer] ([place], [place], [place], [place]) Address [address] [place] [address] Care Team Providers Care Well Servicing Rig Operator Name Role Phone Unavailable Primary Care Provider Unavailabl e Encounter Details Date Type Department Care Team (Late st Contact Info) Description 03/27/2018 Transcribed Document [facility] [place] [facility] [place] [address] ProviderZion MD [address] [place] [id number] Social History Tobacco Use Types Packs/Day Years Used Date Smoking Tobacco: Never Assessed Comments Unknown Sex and Gender Information Value Date Recorded Sex Assigned at Not on file Legal Sex Female 4:39 PM CDT Gender Identity Not on file Sexual Orientation Not on file documented as of this encounter Miscellaneous Notes * Cerner Conversion Note - Historical ProviderMD - 03/27/2018 10:05 AM UNDRAPED ARTIST MODEL Patient: ETHAN LOREDO Age: 57 Years Sex: [...]
--- OUTSIDE RECORDS SUMMARY | 2024-11-15 20:00 | XMS_ITS | Encounter Summary ---
Author Organization [employer] ([place], [place], [place], [place]) Address [address] [place] [address] Care Team Providers Care Health Promotion Specialist Name Role Phone Unavailable Primary Care Provider Unavailabl e Encounter Details Date Type Department Care Team (Late st Contact Info) Description 03/28/2018 Transcribed Document [facility] [place] [facility] [address] [place] [address] ProviderZion MD [address] [place] [address] Social History Tobacco Use Types [...] - Historical ProviderMD - 03/28/2018 2:27 PM ECHOMETER ENGINEER Care Management Assessment/Plan Entered On: 03/28/2018 14:57 EST Performed On: 03/28/2018 14:27 EST by Ninoska Cuellar Rn-Food Technology Teacher Ed Care Management Note Anticipated Discharge Date : 04/03/2018 14:00 EST Care Management Note : Called [facility] and spoke with Chiquita and updated her on IV abx needs. SHe will check cost and call CM back to see if bed offer is still on the table. CM left for Sheri with [facility] to update her, left requesting return phone call. CM updated pt and she appears discouraged that [facility] will not accept her as a pt. She tells CM that she is considering just going home. BLAKE also called Clem with [facility] to argueta abx at home. She states that [facility] may also be able to contract with facility to provide them with abx at their cost. CM faxed info on pt and abx to [facility] f [phone]. CM updated BS RN, Ava. CM will cont to follow. Care Management Note Report : Ninoska Cuellar, Rn-Food Technology Teacher Ed - 03/28/18 14:21:[address] Jones this am and he tells CM that pt is ready for discharge from his standpoint and that ID has a plan in place for IV abx. PT does have a PICC in place. Recieved VM from [facility] with [facility] p [phone] stating they are interested in pt. CM went to BS to speak with pt to discuss bed offers. CM presented bed offers and pt tells CM that she really doesn't want to go to another facility. Pt tells CM that she only wants to go to [facility], as she has been there in the past. [facility] had not make bed offer at this time. CM called and spoke with Gama in admissions at [facility] and she tells CM that per her DON, they do not believe they can meet pt's needs at this time. CM pressed for more information and Gama told CM that she would have DON call her. -CM then spoke with MADELYN Corona at [facility] and she states that pt appears too sick at this time to come to their facility. CM provided her with verbal updates, as well as faxed updates f [phone]. She states they will reevaluate now, knowing [...] pt at this time due to the $[id number] IV rocephin cost through 05/04/[address] Diaz orders. Cm to follow for ongoing d/c planning/needs. Stew Porras, REGULO - 03/27/18 16:25:12 blayne from [facility] ( ex 108) called to make bed offer. bed offers will be presented to pt 03/28. [facility] [phone] Stew Porras, RN - 03/27/18 15:00:29 spoke to ID who states pt maybe ready for dc as early as 03/28. id and attending PA are recommending SNF. spoke with pt and her dtr, jazmine and informed them of suggestion from drs to dc to snf for iv abx. pt and dtr in agreement and referrlas made via [facility] to the following counties.... [place]. Stew Porras, RN - 03/27/18 10:34:34 RRS-[id number] + for [facility] CT consulted and per ID, infection must clear prior to any ant surgical intervention Currnelty on rocephin iv w/bld cx pending Documentation Status Complete : Yes Ninoska Cuellar, Rn-Food Technology Teacher Ed - 03/28/2018 14:27 EST Electronically signed by Jorge Alberto [facility] Conversion Branch Store Manager Cerner at 05/29/2022 8:31 PM CDT documented in this encounter Plan of Treatment Not on file documented as of this encounter Visit Diagnoses Not on filedocumented in this encounter
--- OUTSIDE RECORDS SUMMARY | 2024-11-15 20:00 | XMS_ITS | Referral Summary ---
Author Organization [employer] ([place], [place], [place], [place]) Address [address] [place] [address] Care Team Providers Care Senior Partner Name Role Phone Unavailable Primary Care Provider [...]
--- OUTSIDE RECORDS SUMMARY | 2024-11-15 20:00 | XMS_ITS | Encounter Summary ---
Author Organization [employer] ([place], [place], [place], [place]) Address [address] [place] [address] Care Team Providers Care Building Associate Name Role Phone Unavailable Primary Care Provider Unavailabl e Encounter Details Date Type Department Care Team (Late st Contact Info) Description 03/27/2018 Transcribed Document [facility] Family Medicine [address] [place] [address] ProviderZion MD [address] [place] [address] Social History Tobacco Use Types [...] - Historical ProviderMD - 03/27/2018 4:23 PM PHOTOENGRAVING MACHINE OPERATOR/TENDER Care Management Assessment/Plan Entered On: 03/27/2018 16:25 EST Performed On: 03/27/2018 16:23 EST by Stew Porras, RN Care Management Note Anticipated Discharge Date : 04/03/2018 14:00 EST Care Management Note : blayne from [facility] ( ex 108) called to make bed offer. bed offers will be presented to pt 03/28. [place] [phone] Care Management Note Report : Stew Porras [...] - 03/27/2018 16:23 EST Electronically signed by [facility] Conversion Coremaker Apprentice Cerner at 05/29/2022 8:47 PM CDT documented in this encounter Plan of Treatment Not on file documented as of this encounter Visit Diagnoses Not on filedocumented in this encounter
--- OUTSIDE RECORDS SUMMARY | 2024-11-15 20:00 | XMS_ITS | Clinical Summary ---
Author Organization [facility] Address [facility] [place] [address] Care Team Providers Care Air Carrier Inspector Name Role Phone Pcp, No Primary Care Provider [phone] Source Comments This information has been disclosed [...] therelease of HIV test results or diagnoses. [id number] Allergies No known active allergies Medications [...] In the past 12 months has e [employer], gas, oil, or water [employer] threatened to shut off services in your [...] time in the past [address] [facility], were you homeless or living in a fdc (including now)? No 03/05/2024 Comments Unknown Sex [...] - Risk 60-74 years 1-dose series) 2022 Diabetic Eye Exam (MyChart) 03/08/2024 Thyroid Function/TSH (MyChart) 06/04/2024 03/06/2024 Hemoglobin A1C Monitoring (MyChart) 09/03/2024 03/06/2024 Immunization: COVID-19 ( season) 2024 Immunization: Influenza (MyC banuelos) (#1) 2024 11/29/2023, [...] ORDERABLES Fin al Result Performing Organization Address [facility] Co de Phone Number [facility] [address] [facility]. [address] * Protein / creatinine ratio, urine (03/07/2024 11:26 PM EST) Creatinine, Urine 28.30 mg/dL 03/07/2024 11:52 PM EST [facility] Comment:Reference range not established for this test. Total Protein, Ur 52 mg/dL 03/07/2024 11:52 PM EST [facility] Comment:Reference range not established for this test. Prot/Creat Ratio, Ur 1.84 ratio 03/07/2024 11:52 PM EST [facility] Urine 03/07/2024 11:2 6 PM EST 03/07/2024 11:36 PM EST Tate Castro MD URINE ORDERABLES Final R esult Performing Organization Address [facility] Co de Phone Number [facility] [address] * (ABNORMAL) Thyroid Function Esmeralda (03/06/2024 1:44 PM EST) TSH 6.15(H) 0.45 - 4.12 uIU/mL 03/06/2024 2:33 PM EST [facility] Serum 03/06/2024 1:44 PM EST 03/06/2024 1:50 PM EST us Angelo Chaudhry CNP LAB BLOOD ORDERABLES Final Result Performing Organization Address [facility] Co de Phone Number [facility] [address] * (ABNORMAL) Hemoglobin A1c (03/06/2024 5:42 AM EST) Hemoglobin A1C 6.4(H) 4.0 - 5.6 % 03/06/2024 1:13 PM EST [facility] Comment: Hemoglobin A1c Interpretation Guidelines: [...] ORDERABLES Bindu l Result Performing Organization Address [facility] Co de Phone Number [facility] [address] from Last 3 Months or Most Recently Relevant to Health Maintenance Insurance [employer] G[employer]US MEDICARE Advance Directives For more information, please contact: [phone] Documents on File Type Date Recorded Patient Educational Adviser Expl anation Durable Power of [place] - scan 03/11/2024 * Full Code (Latest Code Status on File) Date Activated Date Inactivated Comments 03/05/2024 10:20 PM 03/09/2024 11:04 PM Care Teams Air Carrier Inspector Relationship Specialty Start Date End Date Pcp, No [address] [place] [address] PCP - General 03/05/24
--- OUTSIDE RECORDS SUMMARY | 2024-11-15 20:00 | XMS_ITS | Encounter Summary ---
Author Organization Healthcare Address [address] [place] [address] Care Team Providers Care High Lift Operator Name Role Phone Cosme Davis MD Primary Care Provider [phone] Encounter Details Date Type Department Care Team (Latest Contact Info) Description 10/19/2024 Travel Social History Tobacco Use Types Packs/Day Years Used Date Smoking Tobacco: Every Day Smokeless Tobacco: Never Humiliation, Afraid, Rape, a nd Kick questionnaire [...] and Family Not on file 10/13/2024 Attends Taoism Services Not on file 10/13 Active Member [...] any time in the past 12 m [facility], were you homeless or living in a long term (including now)? No 10/13/2024 [facility] Utilities Answer Date Recorded In the past 12 months has th e electric, gas, oil, or water company threatened to shut off services in your home? No 10/13/2024 Comments Unknown Sex and Gender Information Value Date Recorded Sex Assigned at Not on file Legal Sex Female 8:26 PM EDT Gender Identity Not on file Sexual Orientation Not on file documented as of this encounter Functional Status * Calculated C-SSRS Risk Score (Lifetime/Recent) Answer Date of Assessment Author No Risk Indicated 10/19/2024 12:00 PM EDT Jarvis Johnson, RN * Question Answer Date of Assessment Author 1. Wish to be (Past 1 Month) No 025 12:00 PM EDT Jarvis Johnson, RN 2. Non-Specific Active Suici chepe Thoughts (Past 1 Month) No 10/19/2024 12:00 PM EDT Jarvis Johnson, RN 6. Suicidal Behavior (Lifetime) No 09/08/202 5 12:00 PM EDT Jarvis Johnson, RN documented as of this encounter Plan of Treatment Upcoming Encounters Date Type Department Care Team (Late st Contact Info) Description 01/21/2025 1:30 PM EST Appointment [facility] [address] [facility] 5th Floor [address] [place] [address] 01/21/2025 2:00 PM EST Appointment [facility] [address] [place] [address] 01/21/2025 2:40 PM EST Office Visit [facility] [address] [facility] 5th Floor [address] [place] [address] Jose Rosario MD [address] [facility] [address] [place] [address] documented as of this encounter Visit Diagnoses Not on filedocumented in this encounter Additional Health Concerns Infection Onset 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
--- OUTSIDE RECORDS SUMMARY | 2024-11-15 20:00 | XMS_ITS | Encounter Summary ---
Author Organization Healthcare Address [address] [place] [place] [address] Care Team Providers Care Dump Motor Operator Name Role Phone Cosme Davis MD Primary Care Provider [phone] Encounter Details Date Type Department Care Team (Latest Contact Info) Description 10/14/2024 Travel Social History Tobacco Use Types Packs/Day [...] any time in the past 12 m [facility], were you homeless or living in a nursing home (including now)? No 10/13/2024 [facility] Utilities Answer Date Recorded In the past [...] Date of Assessment Author No Risk Indicated 10/14/2024 10:00 PM EDT France Govea * Question Answer Date of Assessment Author 1. Wish to be (Past 1 Month) No 025 10:00 PM EDT France Mcpherson 2. Non-Specific Active Suici chepe Thoughts (Past 1 Month) No 10/14/2024 10:00 PM EDT Raven Mcpherson 6. Suicidal Behavior (Lifetime) No 10:00 PM EDT France Mcpherson documented as of this encounter Plan of Treatment Upcoming Encounters Date Type Department Care Team (Late st Contact Info) Description 01/21/2025 1:[address] [facility] [address] [facility] 5th Floor [address], [address] [place] [address] 01/21/2025 2:[address] [facility] [address] [facility] 5th Floor [address], [address] [place] [address] 01/21/2025 2:40 PM EST Office Visit [facility] [address] [facility] 5th Floor [address], [address] [place] [address] Jose Rosario MD [address] [facility] [address] [place] [address] documented as of this encounter Visit Diagnoses Not on filedocumented in this encounter Additional Health Concerns Assessment Noted Time A Body Mass Index follow-up plan has been documented for the patient 10/30/2024 1:27 PM EDT documented as of this encounter Care Teams Dump Motor Operator Relationship Specialty Start Date End Date Cosme Davis MD [address] [place] [address] PCP - General 06/24/20 documented as of this encounter
--- OUTSIDE RECORDS SUMMARY | 2024-11-15 20:00 | XMS_ITS | Encounter Summary ---
Author Organization Healthcare Address [address] [place] [address] Care Team Providers Care Pediatric Speech Therapist Name Role Phone Cosme Davis MD Primary Care Provider [phone] Encounter Details Date Type Department Care Team (Latest Contact Info) Description 10/16/2024 Travel Social History Tobacco Use Types Packs/Day [...] and Family Not on file 10/13/2024 Attends Nondenominational Services Not on file 10/13 Active Member [...] any time in the past 12 m [facility], were you homeless or living in a jail (including now)? No 10/13/2024 [facility] Utilities Answer Date Recorded In [...] Date of Assessment Author No Risk Indicated 10/16/2024 8:00 AM EDT Blossom Cintron RN * Question Answer Date of Assessment Author 1. Wish to be (Past 1 Month) No 025 8:00 AM GABRIELAT Junior Cintron RN 2. Non-Specific Active Suici chepe Thoughts (Past 1 Month) No 10/16/2024 8:00 AM EDT Robe Cintron RN 6. Suicidal Behavior (Lifetime) No 8:00 AM EDT Junior Cintron RN documented as of this encounter Plan of Treatment Upcoming Encounters Date Type Department Care Team (Late st Contact Info) Description 01/21/2025 1:30 PM EST Appointment [facility] [address] [place] [address] 01/21/2025 2:00 PM EST Appointment [facility] [address] [place] [address] 01/21/2025 2:40 PM EST Office Visit [facility] [address] [place] [address] Jose Rosario MD [address] [facility] [address] [place] [address] documented as of this encounter Visit Diagnoses Not on filedocumented in this encounter Additional Health Concerns Assessment Noted Time A Body Mass Index follow-up plan has been documented for the patient 10/30/2024 1:27 PM EDT documented as of this encounter Care Teams Pediatric Speech Therapist Relationship Specialty Start Date End Date Cosme Davis MD [address] [place] [address] PCP - General 06/24/20 documented as of this encounter
--- OUTSIDE RECORDS SUMMARY | 2024-11-15 20:00 | XMS_ITS | Encounter Summary ---
Author Organization [employer] ([place], [place], [place], [place]) Address [address] [place] [address] Care Team Providers Care Cylinder Machine Operator Name Role Phone Unavailable Primary Care Provider Unavailabl e Encounter Details Date Type Department Care Team (Late st Contact Info) Description 03/27/2018 Transcribed Document [facility] [place] [address] [place] [address] ProviderZion MD [address] [place] [id number] Social History Tobacco Use Types Packs/Day Years Used Date Smoking Tobacco: Never Assessed Comments Unknown Sex and Gender Information Value Date Recorded Sex Assigned at Not on file Legal Sex Female 4:39 PM CDT Gender Identity Not on file Sexual Orientation Not on file documented as of this encounter Miscellaneous Notes * Cerner Conversion Note - Historical ProviderMD - 03/27/2018 2:00 AM SENIOR GEOLOGIST Theatrical Agent Details Entered On: 03/27/2018 5:00 EST Performed [...]
--- OUTSIDE RECORDS SUMMARY | 2024-11-15 20:00 | XMS_ITS | Encounter Summary ---
Author Organization Healthcare Address [address] [place] [address] Care Team Providers Care Ammonia Nitrate Operator Name Role Phone Cosem Davis MD Primary Care Provider [phone] Encounter Details Date Type Department Care Team (Latest Contact Info) Description 11/13/2024 Travel Social History Tobacco Use Types Packs/Day [...] and Family Not on file 10/13/2024 Attends [employer] Not on file 10/13 Active Member [...] any time in the past 12 m [facility], were you homeless or living in a care home (including now)? No 10/13/2024 [facility] Utilities Answer Date Recorded In [...] on file documented as of this encounter Plan of Treatment Upcoming Encounters Date Type Department Care Team (Late st Contact Info) Description 01/21/2025 1:30 PM EST Appointment [facility] [address] [facility] 5th Floor [address] [place] [address] 01/21/2025 2:00 PM EST Appointment [facility] [address] [facility] 5th Floor [address] [place] [address] 01/21/2025 2:40 PM EST Office Visit [facility] [address] [facility] 5th Floor [address] [place] [address] Jose Rosario MD [address] [facility] [address] [place] [address] documented as of this encounter Visit Diagnoses [...] documented as of this encounter Care Teams Ammonia Nitrate Operator Relationship Specialty Start Date End Date Cosme Davis MD [address] [place] [address] PCP - General 06/24/20 documented as of this encounter
--- OUTSIDE RECORDS SUMMARY | 2024-11-15 20:00 | XMS_ITS | Encounter Summary ---
Author Organization Healthcare Address [address] [place] [address] Care Team Providers Care Dairy Truck Driver Name Role Phone Cosme Davis MD Primary Care Provider [phone] Encounter Details Date Type Department Care Team (Latest Contact Info) Description 10/13/2024 Travel Social History Tobacco Use Types Packs/Day [...] were you homeless or living in a longterm (including now)? No 10/13/2024 [facility] Utilities Answer Date Recorded In the [...] Date of Assessment Author No Risk Indicated 10/13/2024 8:00 PM EDT Kimberlyn Pittman * Question Answer Date of Assessment Author 1. Wish to be (Past 1 Month) No 025 8:00 PM EDT Kimberlyn Pittman 2. Non-Specific Active Suici chepe Thoughts (Past 1 Month) No 10/13/2024 8:00 PM EDT Kimberlyn Pittman 6. Suicidal Behavior (Lifetime) No 5 8:00 PM EDT Kimberlyn Pittman documented as of this encounter Plan of Treatment Upcoming Encounters Date Type Department Care Team (Late st Contact Info) Description 01/21/2025 1:30 PM EST Appointment [facility] [address] [facility] 5th Floor [address] [place] [address] 01/21/2025 2:00 PM EST Appointment [facility] [address] [place] [address] 01/21/2025 2:40 PM EST Office Visit [facility] [address] [facility] 5th Floor [address] [place] [address] Jose Rosario MD [address] [facility] [address] [place] [address] documented as of this encounter Visit Diagnoses Not on filedocumented in this encounter Additional Health Concerns Assessment Noted Time A Body Mass Index follow-up plan has been documented for the patient 10/30/2024 1:27 PM EDT documented as of this encounter Care Teams Dairy Truck Driver Relationship Specialty Start Date End Date Cosme Davis MD [address] [place] [address] PCP - General 06/24/20 documented as of this encounter
--- OUTSIDE RECORDS SUMMARY | 2024-11-15 20:00 | XMS_ITS | Encounter Summary ---
Author Organization [employer] ([place], [place], [place], [place]) Address [address] [place] [address] Care Team Providers Care Fast Food Worker Name Role Phone Unavailable Primary Care Provider Unavailabl e Encounter Details Date Type Department Care Team (Late st Contact Info) Description 03/28/2018 Transcribed Document [facility] [place] [address] [place] [address] ProviderZion MD [address] [place] [id number] Social History Tobacco Use Types Packs/Day Years Used Date Smoking Tobacco: Never Assessed Comments Unknown Sex and Gender Information Value Date Recorded Sex Assigned at Not on file Legal Sex Female 4:39 PM CDT Gender Identity Not on file Sexual Orientation Not on file documented as of this encounter Miscellaneous Notes * Cerner Conversion Note - Historical ProviderMD - 03/28/2018 2:00 AM COMBINE INSPECTOR Magazine Grinder Loader Details Entered On: 03/28/2018 6:03 EST Performed [...] Gabriela Reyes, REGULO - 03/28/2018 6:02 EST Electronically signed by Vinayak Azul Conversion Database Administration Manager Cercarolin at 05/29/2022 8:28 PM CDT documented in this encounter Plan of Treatment Not on file documented as of this encounter Visit Diagnoses Not on filedocumented in this encounter
--- OUTSIDE RECORDS SUMMARY | 2024-11-15 20:00 | XMS_ITS | Encounter Summary ---
Author Organization Healthcare Address [address] [place] [address] Care Team Providers Care Guidance And Control System Engineer Name Role Phone Cosme Davis MD Primary Care Provider [phone] Encounter Details Date Type Department Care Team (Latest Contact Info) Description 10/18/2024 Travel Social History Tobacco Use Types Packs/Day [...] and Family Not on file 10/13/2024 Attends Bahai Services Not on file 10/13 Active Member [...] any time in the past 12 m [facility], were you homeless or living in a assisted (including now)? No 10/13/2024 [facility] Utilities Answer Date Recorded In the [...] Info) Description 01/21/2025 1:30 PM EST Appointment [facility] Vascular Lab [address] [place] [address] 01/21/2025 2:00 PM EST Appointment [facility] Lab [address] [place] [address] 01/21/2025 2:40 PM EST Office Visit [facility] [address] 5th Floor [address] [place] [address] Jose Rosario MD [address] [facility] [address] [place] [address] documented as of this encounter Visit Diagnoses Not on filedocumented in this encounter Additional Health Concerns 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
--- OUTSIDE RECORDS SUMMARY | 2024-11-15 20:00 | XMS_ITS | Encounter Summary ---
Author Organization [employer] ([place], [place], [place], [place]) Address [address] [place] [address] Care Team Providers Care Headmaster/Mistress Name Role Phone Unavailable Primary Care Provider Unavailabl e Encounter Details Date Type Department Care Team (Late st Contact Info) Description 03/28/2018 Transcribed Document [facility] Family Medicine [address] [place] [address] ProviderZion MD [address] [place] [address] Social History Tobacco Use Types [...] - Historical ProviderMD - 03/28/2018 8:22 PM TUBE WORKER Care Management Assessment/Plan Entered On: 03/28/2018 20:23 EST Performed On: 03/28/2018 20:22 EST by Ninoska Cuellar, Rn-Forge Operator Helper Ed Care Management Note Anticipated Discharge Date : 04/03/2018 14:00 EST Care Management Note : CM faxed orders to [facility] for IV abx f [phone] per md orders. CM will need to call [facility] to notify them of final d/c plan per orders p [phone]. CM to follow for ongoing d/c planning/needs. Care Management Note Report : Ninoska Cuellar, Rn-Forge Operator Helper Ed - 03/28/18 18:12:15 CM recieved call from Gama at [facility] stating they can take pt at their facility, but not until Saturday, as they now have an agreement with [facility]. CM then spoke with Edie from [facility] and she again confirms they can accept pt at their facility tomorrow. CM updated pt and now pt is agreeable to go to [facility]. She also gave CM permission to speak with Jazmine joshi by phone p [phone]. CM spoke with Jazmine and she is agreeable with plan for [facility], stating its much closer to them, approx 30 min. Pt tells CM that her PCP, Dr. Davis had told her that she was not able to do IV abx from home. Discharge plan will be to go to [facility] in the am. CM updated Dr. Stauffer and he reports he will notify [facility] for tomorrow. CM will cont to follow for ongoing d/c planning/needs. Ninoska Cuellar, Rn-Forge Operator Helper Ed - 03/28/18 16:01:02 [facility] Clem states home cost for Rocephin is $3.70/wk. She states they may be able to contract with SNF to provide abx at pt's cost. She asked CM to have SNF call Paulo at their office to see about arranging. CM called MADELYN Corona with [facility] and she will call [facility] to see if this can be arranged. Updated [facility]. CM will cont to follow. Ninoska Cuellar, Rn-Forge Operator Helper Ed - 03/28/18 14:57:29 Called [facility] and spoke with Chiquita and updated her on IV abx needs. SHe will check cost and call CM back to see if bed offer is still on the table. CM left for [facility] with [facility] Raines to update her, left requesting return phone call. CM updated pt and she appears discouraged that [facility] will not accept her as a pt. She tells CM that she is considering just going home. BLAKE also called Clem with [facility] to argueta abx at home. She states that [facility] may also be able to contract with facility to provide them with abx at their cost. CM faxed info on pt and abx to [facility] f [phone]. CM updated [facility]. CM will cont to follow. Ninoska Cuellar, Rn-Forge Operator Helper Ed - 03/28/18 14:21:[address] Jones this am and he tells CM that pt is ready for discharge from his standpoint and that ID has a plan in place for IV abx. PT does have a PICC in place. Recieved VM from [facility] with [facility] p [phone] stating they are interested in pt. CM went to BS to speak with pt to discuss bed offers. CM presented bed offers and pt tells CM that she really doesn't want to go to another facility. Pt tells CM that she only wants to go to [facility], as she has been there in the past. [facility] had not make bed offer at this time. CM called and spoke with Gama in admissions at [facility] and she tells CM that per her DON, they do not believe they can meet pt's needs at this time. CM pressed for more information and Gama told CM that she would have DON call her. -CM then spoke with MADELYN Corona at [facility] and she states that pt appears too sick at this time to come to their facility. CM provided her with verbal updates, as well as faxed updates f [phone]. She states they will reevaluate now, knowing [...] pt at this time due to the $8622-6416 IV rocephin cost through 05/04/[address] Diaz orders. Cm to follow for ongoing d/c planning/needs. Stew Porras, RN - 03/27/18 16:25:12 edie from [facility] ([phone]) called to make bed offer. bed offers will be presented to pt 03/28. dtr will provide transportationashely [phone] Stew Porras, RN - 03/27/18 15:00:29 spoke to ID who states pt maybe ready for dc as early as 03/28. id and attending PA are recommending SNF. spoke with pt and her dtr, jazmine and informed them of suggestion from drs to dc to snf for iv abx. pt and dtr in agreement and referrlas made via [facility] to the following [place].... [place]. Stew Porras, REGULO - 03/27/18 10:34:34 RRS-43 + for BROCK CT consulted and per ID, infection must clear prior to any ant surgical intervention Currnelty on rocephin iv w/bld cx pending Documentation Status Complete : Yes Ninoska Cuellar, Rn-Forge Operator Helper Ed - 03/28/2018 20:22 EST Electronically signed by Jorge Alberto [facility] Conversion Bread Oven Operator Cerner at 05/29/2022 8:32 PM CDT documented in this encounter Plan of Treatment Not on file documented as of this encounter Visit Diagnoses Not on filedocumented in this encounter
--- OUTSIDE RECORDS SUMMARY | 2024-11-15 20:01 | XMS_ITS | Encounter Summary ---
Author Organization Healthcare Address [address] [id number] Care Team Providers Care Mobile Heavy Equipment Operator Name Role Phone Cosme Davis MD Primary Care Provider [phone] Encounter Details Date Type Department Care Team (Late st Contact Info) Description 10/12/2024 Orders Only External Location [address] [place] [address] Tito Madrid MD [address] [place] [address] [place] [address] Social History Tobacco Use Types Packs/Day Years [...] and Family Not on file 10/13/2024 Attends Confucianist Services Not on file 10/13 Active Member [...] any time in the past 12 m [facility], were you homeless or living in a snf (including now)? No 10/13/2024 [facility] Utilities Answer Date Recorded In the past 12 months has th e [employer], gas, oil, or water [employer] threatened to shut off services in your [...] Wish to be (Past 1 Month) No 09/05/2 025 8:00 AM EDT Junior Cintron, RN 2. Non-Specific Active Suici chepe Thoughts (Past 1 Month) No 10/16/2024 8:00 AM EDT Robe Cintron RN 6. Suicidal Behavior (Lifetime) No 8:00 AM EDT Junior Cintron RN documented as of this encounter Plan of Treatment Upcoming Encounters Date Type Department Care Team (Late st Contact Info) Description 01/21/2025 1:30 PM EST Appointment [facility] Vascular Lab [address] [place] [address] 01/21/2025 2:00 PM EST Appointment [facility]ascular Lab [address] [place] [address] 01/21/2025 2:40 PM EST Office Visit [facility] [address] [place] [address] Jose Rosario MD [address] [facility] [address] [place] [address] documented as of this encounter Procedures Procedure Name Priority Date/Time Associated Diagnosis Comments CT OUTSIDE IMAGES 10/12/2024 8:13 PM EDT documented in this encounter Results * CT OUTSIDE IMAGES (10/12/2024 8:13 PM EDT) Anatomical Region Laterality Modality Computed Tomogra phy 10/12/2024 8:13 PM EDT Tito Madrid MD IMG CT PROCEDURES Final Result documented in this encounter Visit Diagnoses Not on filedocumented in this encounter Additional Health Concerns Assessment Noted Time A Body Mass Index follow-up plan has been documented for the patient 10/30/2024 1:27 PM EDT documented as of this encounter Care Teams Mobile Heavy Equipment Operator Relationship Specialty Start Date End Date Cosme Davis MD [address] [place] [address] PCP - General 06/24/20 documented as of this encounter
--- OUTSIDE RECORDS SUMMARY | 2024-11-15 20:01 | XMS_ITS | Encounter Summary ---
Author Organization Healthcare Address [address] [id number] Care Team Providers Care Director Information Security Name Role Phone Cosme Davis MD Primary Care Provider [phone] Encounter Details Date Type Department Care Team (Late st Contact Info) Description 10/12/2024 Orders Only External Location [address] [place] [address] Tito Madrid MD [address] [place] [address] [place] [address] Social History Tobacco Use Types Packs/Day [...] any time in the past 12 m [facility], were you homeless or living in a group home (including now)? No 10/13/2024 [facility] Utilities Answer Date Recorded In the past 12 months has th e [employer], gas, oil, or water [employer] threatened to shut off services in your [...] [facility] Vascular Lab [address] [place] [address] 01/21/2025 2:[address] [facility] Vascular Lab [address] [place] [address] 01/21/2025 2:40 PM EST Office Visit [facility] [address] [place] [address] Jose Rosario MD [address] [facility] [address] [place] [address] documented as of this encounter Procedures Procedure Name Priority Date/Time Associated Diagnosis Comments CT OUTSIDE IMAGES 10/12/2024 8:15 PM EDT documented in this encounter Results * CT OUTSIDE IMAGES (10/12/2024 8:15 PM EDT) Anatomical Region Laterality Modality Computed Tomogra phy 10/12/2024 8:15 PM EDT Tito Madrid MD IMG CT PROCEDURES Final Result documented in this encounter Visit Diagnoses Not on filedocumented in this encounter Additional Health Concerns Assessment Noted Time A Body Mass Index follow-up plan has been documented for the patient 10/30/2024 1:27 PM EDT documented as of this encounter Care Teams Director Information Security Relationship Specialty Start Date End Date Cosme Davis MD [address] [place] [address] PCP - General 06/24/20 documented as of this encounter
--- OUTSIDE RECORDS SUMMARY | 2024-11-15 20:01 | XMS_ITS | Encounter Summary ---
Author Organization [employer] ([place], [place], [place], [place]) Address [address] [place] [address] Care Team Providers Care Rotary Derrick Operator Name Role Phone Unavailable Primary Care Provider Unavailabl e Encounter Details Date Type Department Care Team (Late st Contact Info) Description 03/28/2018 Transcribed Document [facility] [address] [place] [address] ProviderZion MD [address] [place], [place] [id number] Social History Tobacco Use Types Packs/Day Years Used Date Smoking Tobacco: Never Assessed Comments Unknown Sex and Gender Information Value Date Recorded Sex Assigned at Not on file Legal Sex Female 4:39 PM CDT Gender Identity Not on file Sexual Orientation Not on file documented as of this encounter Miscellaneous Notes * Cerner Conversion Note - Zion ProviderMD - 03/28/2018 7:46 AM SOFTWARE CONFIGURATION MANAGER Patient: ETHAN LOREDO Age: 57 years Sex: [...] Rocephin: 2 Gram, 100 mL/Hr, IV Piggyback, [id number] Tylenol: 650 mg, Oral, Q4H, PRN: Other [...] of motion, Normal strength. Integumentary: Warm, Dry, Sargeant. Neurologic: Alert, Oriented. Psychiatric: Cooperative, Appropriate mood [...] in 4-[address] Marcano at [facility]. 03/27/18 Options discussed with pt-Definitive Rx would require redo-MV sugery/device explant-reimplant. Surgical risk is high given severe carotid dx. Conservative initial Rx w/ repeat BROCK in 4-6 is reasonable option. CTS to see/EP following. Continue current CV meds. Add Plavix if no surgery. Electronically signed by Jorge Alberto, [facility] Conversion Contracts Specialist Cerner at 05/29/2022 8:35 PM CDT documented in this encounter Plan of Treatment Not on file documented as of this encounter Visit Diagnoses Not on filedocumented in this encounter
--- OUTSIDE RECORDS SUMMARY | 2024-11-15 20:01 | XMS_ITS | Encounter Summary ---
Author Organization [employer] ([place], [place], [place], [place]) Address [address] [place] [address] Care Team Providers Care Career Center Advisor Name Role Phone Unavailable Primary Care Provider Unavailabl e Encounter Details Date Type Department Care Team (Late st Contact Info) Description 03/28/2018 Transcribed Document [facility] [address] [place] [address] ProviderZion MD [address] [place] [address] Social History Tobacco Use Types [...] - Historical ProviderMD - 03/28/2018 5:00 PM COMMONWEALTH ATTORNEY Chart Check - Review Order Profile Entered On: 03/28/2018 16:43 EST Performed On: 03/28/2018 17:00 EST by Ava Schmitt RN Chart Check Chart Reviewed Date and Time : 03/28/2018 16:43 EST Ava Schmitt RN - 03/28/2018 16:43 EST Electronically signed by Jorge Alberto [facility] Conversion Substation Technician Cerner at 05/29/2022 8:40 PM CDT documented in this encounter Plan of Treatment Not on file documented as of this encounter Visit Diagnoses Not on filedocumented in this encounter
--- OUTSIDE RECORDS SUMMARY | 2024-11-15 20:01 | XMS_ITS | Encounter Summary ---
Author Organization [employer] ([place], [place], [place], [place]) Address [address] [place] [address] Care Team Providers Care Research Chemical Engineer Name Role Phone Unavailable Primary Care Provider Unavailabl e Encounter Details Date Type Department Care Team (Late st Contact Info) Description 03/24/2018 Transcribed Document [facility] [place] [address] [place] [address] ProviderZion MD [address] [place] [address] Social History Tobacco Use Types Packs/Day Years Used Date Smoking Tobacco: Never Assessed Comments Unknown Sex and Gender Information Value Date Recorded Sex Assigned at Not on file Legal Sex Female 4:39 PM CDT Gender Identity Not on file Sexual Orientation Not on file documented as of this encounter Miscellaneous Notes * Cerner Conversion Note - Historical ProviderMD - 03/24/2018 1:34 PM PROVIDER ENROLLMENT SPECIALIST Consult Phone Call Documentation Entered On: 03/24/2018 14:54 EST Performed On: 03/24/2018 14:55 EST by MANE CARROLL Phone Call for Consults Consult Phone Call/Page Attempt : First call Consult Reason : Called in Consult on 03/24/18 at 1455 for: +positive blood cultures at OSH perDr. Christian COLETHA - 03/24/2018 14:53 EST Electronically signed by [facility] Conversion Gunnery/Ordnance Officer Cerner at 05/29/2022 8:51 PM CDT documented in this encounter Plan of Treatment Not on file documented as of this encounter Visit Diagnoses Not on filedocumented in this encounter
--- OUTSIDE RECORDS SUMMARY | 2024-11-15 20:01 | XMS_ITS | Encounter Summary ---
Author Organization [employer] ([place], [place], [place], [place]) Address [address] [place] [address] Care Team Providers Care Wafer Polishing Worker Name Role Phone Unavailable Primary Care Provider Unavailabl e Encounter Details Date Type Department Care Team (Late st Contact Info) Description 03/23/2018 Transcribed Document [facility] [address] [place] [address] ProviderZion MD [address] [place] [id number] Social History Tobacco Use Types Packs/Day Years Used Date Smoking Tobacco: Never Assessed Comments Unknown Sex and Gender Information Value Date Recorded Sex Assigned at Not on file Legal Sex Female 4:39 PM CDT Gender Identity Not on file Sexual Orientation Not on file documented as of this encounter Miscellaneous Notes * Cerner Conversion Note - Zion ProviderMD - 03/23/2018 7:32 PM HEAD OF MARKETING ANALYTICS DATE OF ADMISSION: 03/23/2018 PRIMARY CARE PHYSICIAN: [...] has been evaluated there and transferred to [facility]. Patient was at [facility], came in, laying in bed, mild distress, [...]
--- OUTSIDE RECORDS SUMMARY | 2024-11-15 20:01 | XMS_ITS | Encounter Summary ---
Author Organization [employer] ([place], [place], [place], [place]) Address [address] [place] [address] Care Team Providers Care Shirt Bander Name Role Phone Unavailable Primary Care Provider Unavailabl e Encounter Details Date Type Department Care Team (Late st Contact Info) Description 03/28/2018 Transcribed Document [facility] Family Medicine [address] [place] [address] ProviderZion MD [address] [place] [address] Social History Tobacco Use Types [...] - Zion ProviderMD - 03/28/2018 6:04 PM ROCK DUST SPRAYER Patient: ETHAN LOREDO Age: 57 years Sex: Female : 1960 Associated Diagnoses: None Author: AINKA SAHU MD Subjective I saw and examined [...] Rocephin: 2 Gram, 100 mL/Hr, IV Piggyback, [id number] Tylenol: 650 mg, Oral, Q4H, PRN: Other [...] Oral, Daily cefTRIAXone 2 Gram, IV Piggyback, [id number] citalopram 20 mg tab 20 mg 1 [...]
--- OUTSIDE RECORDS SUMMARY | 2024-11-15 20:01 | XMS_ITS | Encounter Summary ---
Author Organization [employer] ([place], [place], [place], [place]) Address [address] [place] [address] Care Team Providers Care Supervisor Insulation Name Role Phone Unavailable Primary Care Provider Unavailabl e Encounter Details Date Type Department Care Team (Late st Contact Info) Description 03/28/[address] [facility] [place] [address] [place] [address] ProviderZion MD [address] [place] [address] Social History Tobacco Use Types [...] - Historical ProviderMD - 03/28/2018 2:01 PM CAD DESIGN ENGINEER Care Management Assessment/Plan Entered On: 03/28/2018 14:21 EST Performed On: 03/28/2018 14:01 EST by Ninoska Cuellar Rn-Health/Safety Job Titles Ed Care Management Note Anticipated Discharge Date : 04/03/2018 14:00 EST Care Management Note : CM spoke with Dr. Jones this am and he tells CM that pt is ready for discharge from his standpoint and that ID has a plan in place for IV abx. PT does have a PICC in place. Recieved VM from [facility] with [facility] p [phone] stating they are interested in pt. CM went to to speak with pt to discuss bed offers. CM presented bed offers and pt tells CM that she really doesn't want to go to another facility. Pt tells CM that she only wants to go to [facility], as she has been there in the past. [facility] had not make bed offer at this time. BLAKE called and spoke with Gama in admissions at [facility] and she tells CM that per her DON, they do not believe they can meet pt's needs at this time. CM pressed for more information and Gama told CM that she would have DON call her. -CM then spoke with MADELYN Corona at [facility] and she states that pt appears too sick at this time to come to their facility. CM provided her with verbal updates, as well as faxed updates f [phone]. She states they will reevaluate now, knowing [...] pt at this time due to the $3282-3967 IV rocephin cost through 05/04/[address] Diaz orders. Cm to follow for ongoing d/c planning/needs. Care Management Note Report : Stew Porras RN - 03/27/18 16:25:12 blayne from [place] ( [address]) called to make bed offer. bed offers will be presented to pt 03/28. dtr will provide transportationashjbs[place] [phone] Stew Porras RN - 03/27/18 15:00:29 spoke to ID who states pt maybe ready for dc as early as 03/28. id and attending PA are recommending SNF. spoke with pt and her dtr, jazmine and informed them of suggestion from drs to dc to snf for iv abx. pt and dtr in agreement and referrlas made via [facility] to the following counties.... [place]. Stew Porras, REGULO - 03/27/18 10:34:34 RRS-43 + for BROCK CT consulted and per ID, infection must clear prior to any ant surgical intervention Currnelty on rocephin iv w/bld cx pending Documentation Status Complete : Yes Ninoska Cuellar, Rn-Health/Safety Job Titles Ed - 03/28/2018 14:01 EST Electronically signed by Jorge Alberto, [facility] Conversion Airline Dispatcher Cerner at 05/29/2022 8:46 PM CDT documented in this encounter Plan of Treatment Not on file documented as of this encounter Visit Diagnoses Not on filedocumented in this encounter
--- OUTSIDE RECORDS SUMMARY | 2024-11-15 20:01 | XMS_ITS | Encounter Summary ---
Author Organization [employer] ([place], [place], [place], [place]) Address [address] [place] [address] Care Team Providers Care Die Storage Clerk Name Role Phone Unavailable Primary Care Provider Unavailabl e Encounter Details Date Type Department Care Team (Late st Contact Info) Description 03/28/2018 Transcribed Document [facility] [place] Medicine [facility] [place] [address] ProviderZion MD [address] [place] [address] Social History Tobacco Use Types Packs/Day Years Used Date Smoking Tobacco: Never Assessed Comments Unknown Sex and Gender Information Value Date Recorded Sex Assigned at Not on file Legal Sex Female 4:39 PM CDT Gender Identity Not on file Sexual Orientation Not on file documented as of this encounter Miscellaneous Notes * Cerner Conversion Note - Historical ProviderMD - 03/28/2018 11:06 AM SALES MARKETING Patient: ETHAN LOREDO Age: 57 Years Sex: [...]
--- OUTSIDE RECORDS SUMMARY | 2024-11-15 20:01 | XMS_ITS | Encounter Summary ---
Author Organization [employer] ([place], [place], [place], [place]) Address [address] [place] [address] Care Team Providers Care Vp Site Name Role Phone Unavailable Primary Care Provider Unavailabl e Encounter Details Date Type Department Care Team (Late st Contact Info) Description 03/23/2018 Transcribed Document [facility] Family Medicine [address] [place] [address] ProviderZion MD [address] [place] [address] Social History Tobacco Use Types [...] - Historical ProviderMD - 03/23/2018 9:00 AM EDUCATION DEPARTMENT REGISTRAR Consult Phone Call Documentation Entered On: 03/23/2018 [...]
--- OUTSIDE RECORDS SUMMARY | 2024-11-15 20:01 | XMS_ITS | Encounter Summary ---
Author Organization [employer] ([place], [place], [place], [place]) Address [address] [place] [address] Care Team Providers Care Beef Trimmer Name Role Phone Unavailable Primary Care Provider Unavailabl e Encounter Details Date Type Department Care Team (Late st Contact Info) Description 03/28/2018 Transcribed Document [facility] [place] [address] [place] [address] ProviderZion MD [address] [place] [address] Social History Tobacco Use Types [...] - Historical ProviderMD - 03/28/2018 3:56 PM BRAKE HOLDER Care Management Assessment/Plan Entered On: 03/28/2018 16:01 EST Performed On: 03/28/2018 15:56 EST by Ninoska Cuellar Rn-Transplanter Ed Care Management Note Anticipated Discharge Date [...] Care Management Note Report : Ninoska Cuellar Rn-Transplanter Ed - 03/28/18 14:57:29 Called [facility] and spoke with Chiquita and updated her on IV abx needs. SHe will check cost and call CM back to see if bed offer is still on the table. CM left for [facility] with [facility] to update her, left requesting return phone call. CM updated pt and she appears discouraged that [facility] will not accept her as a pt. She tells CM that she is considering just going home. CM also called Clem with [facility] to argueta abx at home. She states that [facility] may also be able to contract with facility to provide them with abx at their cost. CM faxed info on pt and abx to [employer] f [phone]. CM updated BS RN, Ava. CM will cont to follow. Ninoska Cuellar, Rn-Transplanter Ed - 03/28/18 14:21:[address] Jones this and he tells CM that pt is ready for discharge from his standpoint and that ID has a plan in place for IV abx. PT does have a PICC in place. Recieved VM from [facility] with [facility] p [phone] stating they are interested in pt. CM went to BS to speak with pt to discuss bed offers. CM presented bed offers and pt tells CM that she really doesn't want to go to another facility. Pt tells CM that she only wants to go to [facility], as she has been there in the past. [facility] had not make bed offer at this time. BLAKE called and spoke with Gama in admissions at [facility] and she tells CM that per her DON, they do not believe they can meet pt's needs at this time. CM pressed for more information and Gama told CM that she would have DON call her. -CM then spoke with MADELYN Corona at [facility] and she states that pt appears too sick at this time to come to their facility. CM provided her with verbal updates, as well as faxed updates f [phone]. She states they will reevaluate now, knowing abx needs. She asked for bld cx results and CM called microbiology dept and was told that bld cx x2 from 03/23 were still negative, but would not be complete until this evening. CM informed facility of this information. CM then recieved callback from [place] with admissions who states after rereview, they will not be able to take pt at this time due to the $[phone] IV rocephin cost through 05/04/[address] Diaz orders. Cm to follow for ongoing d/c planning/needs. Stew Porras, RN - 03/27/18 16:25:12 blayne from [facility] ([phone]) called to make bed offer. bed offers will be presented to pt 03/28. [place] [phone] Stew Porras, REGULO - 03/27/18 15:00:29 spoke to ID who states pt maybe ready for dc as early as 03/28. id and attending PA are recommending SNF. spoke with pt and her dtr, jazmine and informed them of suggestion from drs to dc to snf for iv abx. pt and dtr in agreement and referrlas made via [facility] to the following [place].... [place]. Stew Porras, REGULO - 03/27/18 10:34:34 RRS-43 + for [facility] CT consulted and per ID, infection must clear prior to any ant surgical intervention Currnelty on rocephin iv w/bld cx pending Documentation Status Complete : Yes Ninoska Cuellar, Rn-Transplanter Ed - 03/28/2018 15:56 EST documented in this encounter Plan of Treatment Not on file documented as of this encounter Visit Diagnoses Not on filedocumented in this encounter
--- OUTSIDE RECORDS SUMMARY | 2024-11-15 20:01 | XMS_ITS | Encounter Summary ---
Author Organization [employer] ([place], [place], [place], [place]) Address [address] [place] [address] Care Team Providers Care Real Estate Clerk Name Role Phone Unavailable Primary Care Provider Unavailabl e Encounter Details Date Type Department Care Team (Late st Contact Info) Description 03/27/2018 Transcribed Document [facility] [place] [address] [place] [address] ProviderZion MD [address] [place] [address] Social History Tobacco Use Types [...] - Historical ProviderMD - 03/27/2018 5:00 AM ZIPPER SETTER LOCKSTITCH Chart Check - Review Order Profile Entered On: 03/27/2018 5:00 EST Performed On: 03/27/2018 5:00 EST by Gabriela Reyes RN Chart Check Chart Reviewed Date and Time : 03/27/2018 5:05 EST [employer] Initiated/Discontinued as Appropriate : Yes All Active Orders Reviewed : Yes Gabriela Reyes, REGULO - 03/27/2018 5:00 EST Electronically signed by Vinayak Azul Conversion Senior Business Process Analyst Cerner at 05/29/2022 8:44 PM CDT documented in this encounter Plan of Treatment Not on file documented as of this encounter Visit Diagnoses Not on filedocumented in this encounter
--- OUTSIDE RECORDS SUMMARY | 2024-11-15 20:01 | XMS_ITS | Encounter Summary ---
Author Organization [employer] ([place], [place], [place], [place]) Address [address] [place] [address] Care Team Providers Care Director Of Training Name Role Phone Unavailable Primary Care Provider Unavailabl e Encounter Details Date Type Department Care Team (Late st Contact Info) Description 03/29/2018 Transcribed Document [facility] Family Medicine [address] [place] [address] ProviderZion MD [address] [place] [address] Social History Tobacco Use Types [...] - Historical ProviderMD - 03/29/2018 5:00 AM PLATFORM MAN Chart Check - Review Order Profile Entered On: 03/29/2018 6:43 EST Performed On: 03/29/2018 5:00 EST by Tiffany Guadalupe RN Chart Check Chart Reviewed Date and Time : 03/29/2018 6:43 EST Powerplans Initiated/Discontinued as Appropriate : Yes All Active Orders Reviewed : Yes Tiffany Guadalupe RN - 03/29/2018 6:43 EST Electronically signed by Jorge Alberto [facility] Conversion Wire Rope Sling Maker Cerner at 05/29/2022 8:36 PM CDT documented in this encounter Plan of Treatment Not on file documented as of this encounter Visit Diagnoses Not on filedocumented in this encounter
--- OUTSIDE RECORDS SUMMARY | 2024-11-15 20:01 | XMS_ITS | Encounter Summary ---
Author Organization [employer] ([place], [place], [place], [place]) Address [address] [place] [address] Care Team Providers Care Hand Umbrella Tipper Name Role Phone Unavailable Primary Care Provider Unavailabl e Encounter Details Date Type Department Care Team (Late st Contact Info) Description 03/28/2018 Transcribed Document [facility] [place] [address] [place] [address] ProviderZion MD [address] [place] [address] Social History Tobacco Use Types [...] - Historical ProviderMD - 03/28/2018 5:00 AM TIG WELDER Chart Check - Review Order Profile Entered [...]
--- OUTSIDE RECORDS SUMMARY | 2024-11-15 20:01 | XMS_ITS | Encounter Summary ---
Author Organization [employer] ([place], [place], [place], [place]) Address [address] [place] [address] Care Team Providers Care Vp Cardiovascular Name Role Phone Unavailable Primary Care Provider Unavailabl e Encounter Details Date Type Department Care Team (Late st Contact Info) Description 03/23/2018 Transcribed Document [facility] [place] [address] [place] [address] ProviderZion MD [address] [place] [address] Social History Tobacco Use Types [...] - Historical ProviderMD - 03/23/2018 5:28 PM SALES CLERK FOOD Admission History, Adult Entered On: 03/23/2018 17:38 [...] #2 Relationship : sister Primary Language : Sudanese Preferred Communication Mode : Verbal Communication Barrier [...] Scale Risk Level : 25-45 Medium Risk [place] Fall Interventions : Adequate lighting, Assistive devices [...] Source : Stated Height Entry Format : Alva Height, Feet : 5 ft(Converted to: 152 [...] Body Mass Index : 31.4 kg/m2 (HI) [place] Body Weight : 47 kg Demetri Arrington [...] Demetri Arrington Rn - 03/23/2018 17:28 EST Electronically signed by Interface, [facility] Conversion Manager Molecular Cerner at 05/29/2022 8:46 PM CDT documented in this encounter Plan of Treatment Not on file documented as of this encounter Visit Diagnoses Not on filedocumented in this encounter
--- OUTSIDE RECORDS SUMMARY | 2024-11-15 20:01 | XMS_ITS | Encounter Summary ---
Author Organization [facility] Address [address] [id number] Care Team Providers Care Button And Buckle Maker Name Role Phone Cosme Davis MD Primary Care Provider [phone] Encounter Details Date Type Department Care Team (Late st Contact Info) Description 10/12/2024 Orders Only External Location [address] [place] [address] Tito Madrid MD [address] [place] [address] [place] [address] Social History Tobacco Use Types Packs/Day [...] and Family Not on file 10/13/2024 Attends Sikh Services Not on file 10/13 Active Member [...] time in the past [address] [facility], were you homeless or living in a fci (including now)? No 10/13/2024 [facility] Utilities Answer Date Recorded In the past 12 months has th e [employer], gas, oil, or water [employer] threatened to shut off services in your [...] Info) Description 01/21/2025 1:30 PM EST Appointment [facility] [address] [place] [address] 01/21/2025 2:00 PM EST Appointment [facility] [address] [place] [address] 01/21/2025 2:40 PM EST Office Visit [facility] [address] [place] [address] Jose Rosario MD [address] [facility] [address] [place] [address] documented as of this encounter Procedures Procedure [...] documented as of this encounter Care Teams Button And Buckle Maker Relationship Specialty Start Date End Date Cosme Davis MD [address] [place] [address] PCP - General 06/24/20 documented as of this encounter
--- OUTSIDE RECORDS SUMMARY | 2024-11-15 20:01 | XMS_ITS | Encounter Summary ---
Author Organization [employer] ([place], [place], [place], [place]) Address [address] [place] [address] Care Team Providers Care Director Of Admissions Name Role Phone Unavailable Primary Care Provider Unavailabl e Encounter Details Date Type Department Care Team (Late st Contact Info) Description 03/23/2018 Transcribed Document [facility] [place] [address] [place] [address] ProviderZion MD [address] [place] [address] Social History Tobacco Use Types [...] - Historical ProviderMD - 03/23/2018 5:54 PM CUTTER GRINDER OPERATOR Care Management Assessment/Plan Entered On: 03/26/2018 17:47 [...] yr old W F transferred here from [facility] w/ bradycardia, positive blood cultures/strep B [...] lives w/ her estranged spouse at [facility] address, claims she is indep w/ all activities. D/C plan pending outcome of possible pacer removal, may well be good [facility] candidate. She denies any needs now, CM will cont to follow. DEEPA GALDAMEZ, Hydrotechnical Specialist - 03/26/2018 17:36 EST documented in this encounter Plan of Treatment Not on file documented as of this encounter Visit Diagnoses Not on filedocumented in this encounter
--- OUTSIDE RECORDS SUMMARY | 2024-11-15 20:01 | XMS_ITS | Data Portability ---
Author Organization [facility] Address [address] [place] [address] Assessment Encounter Date Assessment Date Assessment LastModified by Organization Details LastModified Time 03/26/2024 03/26/2024 -Medications were reviewed and any necessary updates and renewals were made, patient instructed to complete as prescribed. -The potential side effects of medications were discussed. -Counseling was done on care goals and ways to prevent future hospitalizatio ns. -Further treatment per orders listed below. mindyler Not available 03/26/2024 14:58:06 Plan of Treatment Reminders Order Date Submit Date Provider Last Modified By Organization Details Last Modified Time Details Appointments None recorded. Lab drug screen, urine 2024 025 [facility], [address], [place], [address], 18:12:43 TSH + free T4, serum 2024 025 CHARITO [facility], [address], [place], [place], [address], 5 14:15:06 cobalamin and folate panel, serum 2024 025 CHARITO [facility], [address], [place], [place], [address], 5 14:15:09 CBC w/ auto diff 2024 025 CHARITO [facility], [address], [place], [place], [address], 5 09:56:34 CMP, serum or plasma 2024 025 [facility], [address], [place], [place], [address], 5 14:15:07 HbA1c (hemoglobin A1c), blood 2024 025 [facility], [address], [place], [place], [address], 5 14:15:09 lipid panel, serum 2024 025 [facility], [address], [place], [place], [address], 5 14:15:08 TSH + free T4, serum 2024 025 [facility], [address], [place], [place], [address], 5 17:07:34 CMP, serum or plasma 2024 025 [facility], [address], [place], [place], [address], 5 17:07:35 CBC w/ auto diff 2024 025 [facility], [address], [place], [place], [address], 5 17:07:34 BNP (B-type natriuretic peptide), serum or plasma 2024 025 [facility], [address], [place], [place], [address], 5 17:07:36 Referral wound care referral - nurse to start wound care on stage 1 to buttocks-pt is already in care with home health 2024 025 [facility], [address] [place] [address], [address], 08:26:07 Procedures None recorded. Surgeries None recorded. Imaging XR, chest, 2 view 2024 025 [facility] (X-Ray), [address], [place], [address], 5 14:20:52 Medication Orders Miralax 17 gram/dose oral powder 2024 025 [facility], [address] [place] [address] 27 [address], [place], [id number], 5 17:15:19 alprazolam 0.5 mg tablet 2024 025 [facility], [address] [place] [address] S, [place], [id number], 5 12:00:52 fluconazole 100 mg tablet 2024 025 [facility], [address] [place] [address], [address], 5 05:01:51 nystatin 100,000 unit/gram topical powder 2024 025 [facility], [address] [place] [address], [address], 5 14:43:23 alprazolam 0.5 mg tablet 2024 025 [facility], [address] [place] [address] 27 S, [place], [id number], 5 14:43:24 penicillin V potassium 250 mg tablet 2024 025 [facility], [address] [place] [address] 27 S, [place], [id number], 14:14:33 Patient TargetsNo targets recorded. Patient Instructions Encounter Date Encounter Id Patient Instructions Last Modified By Organization Details Last Modified Time 08/11/2024 [id number] body mass index: care instructions rebel Not available 08/11/2024 14:52:19 Reason for Referral nurse to start wound care on stage 1 to buttocks-pt is already in care with home health Referring Physician: Ivonne Jones, Family Medicine, Encounter Date: 03/26/2024 Results Created Date Observation Date Name Description Value Unit Range Abnormal Flag Note LastModifiedBy Organization Detail LastModifiedTime 03/27/1903/27/2024 CBC W/AUT O DIFFE RENTI AL note See Note Order ing Provi oscar: Elisha Beckham n CLIENT SUPPORT ANALYST Not Available [address] , [place], [address], 03/27/2024 17:28:40 03/27/19 25 03/27/2024 CBC W/AUT O DIFFE RENTI AL white blood cell 8.3 10e3/ uL 4.5-13 .0 normal Not Available [address] [place], [place], [address], 03/27/2024 17:28:40 03/27/19 25 03/27/2024 CBC W/AUT O DIFFE RENTI AL red blood cell 3.06 10e6/ uL 3.80-5 .10 low Not Available [facility] [address], [place], [address], 03/27/2024 17:28:40 03/27/19 25 03/27/2024 CBC W/AUT O DIFFE RENTI AL hemoglobin 9.0 g/dL 11.5-1 5.3 low Not Available [address] , [place], [address], 03/27/2024 17:28:40 03/27/19 25 03/27/2024 CBC W/AUT O DIFFE RENTI AL hematocrit 29.5 % 34.0-4 6.0 low Not Available [address] [place], [place], [address], 03/27/2024 17:28:40 03/27/19 25 03/27/2024 CBC W/AUT O DIFFE RENTI AL mean cell volume 96 fL 78.0-9 8.0 normal Not Available [address] [place], [place], [address], 03/27/2024 17:28:40 03/27/19 25 03/27/2024 CBC W/AUT O DIFFE RENTI AL mean cell HGB 29.4 pg 25.0-3 5.0 normal Not Available [address] , [place], [address], 03/27/2024 17:28:40 03/27/19 25 03/27/2024 CBC W/AUT O DIFFE RENTI AL mean cell HGB concentratio n 30.5 g/dL 31.0-3 6.0 low Not Available [address] [place], [place], [address], 03/27/2024 17:28:40 03/27/19 25 03/27/2024 CBC W/AUT O DIFFE RENTI AL red cell distribution width 18.6 % 11.0-1 5.0 high Not Available [address] [place], [place], [address], 03/27/2024 17:28:40 03/27/19 25 03/27/2024 CBC W/AUT O DIFFE RENTI AL platelet count 316 10e3/ uL 150-40 0 normal Not Available [address] [place], [place], [address], 03/27/2024 17:28:40 03/27/19 25 03/27/2024 CBC W/AUT O DIFFE RENTI AL immature granulocyte % 2 0-1 high Not Available [address] , [place], [address], 03/27/2024 17:28:40 03/27/19 25 03/27/2024 CBC W/AUT O DIFFE RENTI AL neutrophil % 71 % 35-75 normal Not Available [address] , [place], [address], 03/27/2024 17:28:40 03/27/19 25 03/27/2024 CBC W/AUT O DIFFE RENTI AL lymphocyte % 19 % 10-50 normal Not Available [address] , [place], [address], 03/27/2024 17:28:40 03/27/19 25 03/27/2024 CBC W/AUT O DIFFE RENTI AL monocyte % 5 % 0-15 normal Not Available [address] , [place], [address], 03/27/2024 17:28:40 03/27/19 25 03/27/2024 CBC W/AUT O DIFFE RENTI AL eosinophil % 2 % 0-5 normal Not Available [address] , [place], [address], 03/27/2024 17:28:40 03/27/19 25 03/27/2024 CBC W/AUT O DIFFE RENTI AL basophil % 1 % 0-5 normal Not Available [address] [place], [place], [address], 03/27/2024 17:28:40 03/27/19 25 03/27/2024 CBC W/AUT O DIFFE RENTI AL immature granulocyte # 0.13 x1000 /uL 0-0.05 high Not Available [address] [place], [place], [address], 03/27/2024 17:28:40 03/27/19 25 03/27/2024 CBC W/AUT O DIFFE RENTI AL neutrophil # 5.92 x1000 /uL 1.50-8 .00 normal Not Available [address] [place], [place], [address], 03/27/2024 17:28:40 03/27/19 25 03/27/2024 CBC W/AUT O DIFFE RENTI AL lymphocyte # 1.55 x1000 /uL 1.20-5 .20 normal Not Available [address] [place], [place], [address], 03/27/2024 17:28:40 03/27/19 25 03/27/2024 CBC W/AUT O DIFFE RENTI AL monocyte # 0.45 x1000 /uL 0.40-0 .90 normal Not Available [address] [place], [place], [address], 03/27/2024 17:28:40 03/27/19 25 03/27/2024 CBC W/AUT O DIFFE RENTI AL eosinophil # 0.18 x1000 /uL 0.00-0 .50 normal Not Available [address] [place], [place], [address], 03/27/2024 17:28:40 03/27/19 25 03/27/2024 CBC W/AUT O DIFFE RENTI AL basophil # 0.07 x1000 /uL 0.00-0 .30 normal Not Available [address] [place], [place], [address], 03/27/2024 17:28:40 03/27/19 25 03/27/2024 CBC W/AUT O DIFFE RENTI AL NRBC automated 0.0 /100_ WBC Not Available [address] [place], [place], [address], 03/27/2024 17:28:40 03/27/19 25 03/27/2024 CBC W/AUT O DIFFE KEELEY AL performing lab see note - [address] [facility] [address] Not Available [address] , [place], [address], 03/27/2024 17:28:40 03/27/19 25 03/27/2024 COMP METAB OLIC PANEL note See Note Order ing Provi oscar: Eugon da Fryma n CLIENT SUPPORT ANALYST Not Available [address] , [place], [address], 03/27/2024 17:32:51 03/27/19 25 03/27/2024 COMP METAB OLIC PANEL sodium 137 mmol/ L 136-14 5 normal Not Available [address] , [place], [address], 03/27/2024 17:32:51 03/27/19 25 03/27/2024 COMP METAB OLIC PANEL potassium 5.0 mmol/ L 3.5-5. 1 normal Not Available [address] , [place], [address], 03/27/2024 17:32:51 03/27/19 25 03/27/2024 COMP METAB OLIC PANEL chloride 103 mmol/ L 98-107 normal Not Available [address] , [place], [address], 03/27/2024 17:32:51 03/27/19 25 03/27/2024 COMP METAB OLIC PANEL carbon dioxide 24 mmol/ L 24-33 normal Not Available [address] [place], [address], 03/27/2024 17:32:51 03/27/19 25 03/27/2024 COMP METAB OLIC PANEL anion gap 15.0 mmol/ L 10-20 normal Not Available [address] , [place], [address], 03/27/2024 17:32:51 03/27/19 25 03/27/2024 COMP METAB OLIC PANEL glucose 148 mg/dL 70-99 high Not Available [address] [place], [address], 03/27/2024 17:32:51 03/27/19 25 03/27/2024 COMP METAB OLIC PANEL blood urea nitrogen 61 mg/dL 7-18 high Not Available [address] [place], [address], 03/27/2024 17:32:51 03/27/19 25 03/27/2024 COMP METAB OLIC PANEL creatinine 2.72 mg/dL 0.55-1 .02 high Not Available [address] , [place], [address], 03/27/2024 17:32:51 03/27/19 25 03/27/2024 COMP METAB OLIC PANEL GFR (estimated) 19 mL/mi n >60 low [IM CALEB NT]: The 2020 CKD-E PI equat ion is now the recom godwin d stand kumar. This versi on does not inclu de race, as do the 2008 and 2011 CKD-E PI creat inine and creat inine -cyst atin C equat ions. Pleas e note that the eGFR now repor anthony is gener ated by the new 2020 CKD-E PI equat ion, which decre ases the eGFR for black s by up to 10% and incre ases the eGFR for non-b lacks by up to 10% in odette rison to the old equat ion. To odette re a legac y eGFR to a curre nt value , a 2009 CKD-E PI calcu lator is easil y searc hable on the inter net. Calcu lated GFR: This calcu lated GFR is advoc ated by the Natio nal Kidne y Found ation to be used as an indic ator of Chron ic Kidne y Disea se (CKD) . 5 Stage s of Chron ic Kidne y Disea se. Stage 1 90 mL/mi n or more Healt hy kidne ys or Kidne y damag e with roman l or high GFR detai ls Stage 2 60 to 89 mL/mi n Kidne y damag e and mild decre ase in GFR detai ls Stage 3 30 to 59 mL/mi n Moder ate decre ase in GFR detai ls Stage 4 15 to 29 mL/mi n Sever e decre ase in GFR detai ls Stage 5 Less than 15 mL/mi n On dialy sis or Kidne y failu re Patie nt's clini sangeetha statu s must be consi dered for the care of your patie nt. Not Available [address] , [place], [address], 03/27/2024 17:32:51 03/27/19 25 03/27/2024 COMP METAB OLIC PANEL BUN/creatini ne ratio 22 12-20 high Not Available [address] [place], [place], [address], 03/27/2024 17:32:51 03/27/19 25 03/27/2024 COMP METAB OLIC PANEL total protein 6.8 g/dL 6.4-8. 2 normal Not Available [address] [place], [place], [address], 03/27/2024 17:32:51 03/27/19 25 03/27/2024 COMP METAB OLIC PANEL albumin 3.3 g/dL 3.4-5. 0 low Not Available [address] [place], [address], 03/27/2024 17:32:51 03/27/19 25 03/27/2024 COMP METAB OLIC PANEL globulin 3.5 g/dL 1.5-4. 0 normal Not Available [address] [place], [address], 03/27/2024 17:32:51 03/27/19 25 03/27/2024 COMP METAB OLIC PANEL albumin/glob ulin ratio 0.9 0.5-2. 0 normal Not Available [address] [place], [address], 03/27/2024 17:32:51 03/27/19 25 03/27/2024 COMP METAB OLIC PANEL calcium 9.2 mg/dL 8.5-10 .1 normal Not Available [address] [place], [address], 03/27/2024 17:32:51 03/27/19 25 03/27/2024 COMP METAB OLIC PANEL osmolality serum calculated 293 mOsm/ kg 272-28 8 high Not Available [address] [place], [address], 03/27/2024 17:32:51 03/27/19 25 03/27/2024 COMP METAB OLIC PANEL bilirubin total 0.4 mg/dL 0.2-1. 0 normal Use of this assay is not recom godwin d for patie nts under going treat ment with Eltro mbopa g due to the poten tial for false ly eleva anthony resul ts. Not Available [address] [place], [address], 03/27/2024 17:32:51 03/27/19 25 03/27/2024 COMP METAB OLIC PANEL SGOT/AST 14 U/L 15-37 low Not Available [address] [place], [address], 03/27/2024 17:32:51 03/27/19 25 03/27/2024 COMP METAB OLIC PANEL SGPT/ALT 15 U/L 14-59 normal Not Available [address], [place], [address], 03/27/2024 17:32:51 03/27/19 25 03/27/2024 COMP METAB OLIC PANEL alkaline phosphatase total 93 U/L 46-116 normal Not Available [address] , [place], [address], 03/27/2024 17:32:51 03/27/19 25 03/27/2024 COMP METAB OLIC PANEL performing lab see note ML [facility] [address] [facility] [address] Not Available [address] , [place], [address], 03/27/2024 17:32:51 03/27/19 25 03/27/2024 MAGNE SIUM note See Note Order ing Provi oscar: Elisha Santosa n CLIENT SUPPORT ANALYST Not Available [address] [place], [place], [address], 03/27/2024 17:32:52 03/27/19 25 03/27/2024 MAGNE SIUM magnesium 2.3 mg/dL 1.8-2. 4 normal Not Available [address] , [place], [address], 03/27/2024 17:32:52 03/27/19 25 03/27/2024 MAGNE SIUM performing lab see note ML - [facility] [address] [facility] [address] Not Available [address] , [place], [address], 03/27/2024 17:32:52 04/16/19 25 04/15/2024 TSH+F REE T4 TSH 12.100 uIU/m L 0.450- 4.500 above high normal Not Available [facility] ([facility]) [address] [facility], [place], [address], 04/15/2024 17:07:34 04/16/19 25 04/15/2024 TSH+F REE T4 T4,free(dire ct) 1.14 NG/dL 0.82-1 .77 normal Not Available [facility] ([facility]) [address] [place], [address], 04/15/2024 17:07:34 04/16/19 25 04/15/2024 CBC WITH DIFFE RENTI AL/PL ATELE T WBC 7.4 x10e3 /uL 3.4-10 .8 normal Not Available [facility] ([facility]) [address] [place], [address], 04/15/2024 17:07:34 04/16/19 25 04/15/2024 CBC WITH DIFFE RENTI AL/PL ATELE T RBC 3.02 x10e6 /uL 3.77-5 .28 below low normal Not Available [facility] ([facility]) [address] [place], [address], 04/15/2024 17:07:34 04/16/19 25 04/15/2024 CBC WITH DIFFE RENTI AL/PL ATELE T hemoglobin 8.6 g/dL 11.1-1 5.9 below low normal Not Available [facility] ([facility]) [address] [place], [address], 04/15/2024 17:07:34 04/16/19 25 04/15/2024 CBC WITH DIFFE RENTI AL/PL ATELE T hematocrit 28.6 % 34.0-4 6.6 below low normal Not Available [facility] ([facility]) [address] [place], [address], 04/15/2024 17:07:34 04/16/19 25 04/15/2024 CBC WITH DIFFE RENTI AL/PL ATELE T MCV 95 fL 79-97 normal Not Available [facility] ([facility]) [address] [facility], [place], [address], 04/15/2024 17:07:34 04/16/19 25 04/15/2024 CBC WITH DIFFE RENTI AL/PL ATELE T MCH 28.5 pg 26.6-3 3.0 normal Not Available [facility] ([facility]) [address] [facility], [place], [address], 04/15/2024 17:07:34 04/16/19 25 04/15/2024 CBC WITH DIFFE RENTI AL/PL ATELE T MCHC 30.1 g/dL 31.5-3 5.7 below low normal Not Available [facility] ([facility]) [address] [facility], [place], [address], 04/15/2024 17:07:34 04/16/19 25 04/15/2024 CBC WITH DIFFE RENTI AL/PL ATELE T RDW 16.1 % 11.7-1 5.4 above high normal Not Available [facility] ([facility]) [address] [facility], [place], [address], 04/15/2024 17:07:34 04/16/19 25 04/15/2024 CBC WITH DIFFE RENTI AL/PL ATELE T platelets 248 x10e3 /uL 150-45 0 normal Not Available [facility] ([facility]) [address] [place], [address], 04/15/2024 17:07:34 04/16/19 25 04/15/2024 CBC WITH DIFFE RENTI AL/PL ATELE T neutrophils 72 % not estab. normal Not Available [facility] ([facility]) [address] [place], [address], 04/15/2024 17:07:34 04/16/19 25 04/15/2024 CBC WITH DIFFE RENTI AL/PL ATELE T lymphs 16 % not estab. normal Not Available [facility] ([facility]) [address] [place], [address], 04/15/2024 17:07:34 04/16/19 25 04/15/2024 CBC WITH DIFFE RENTI AL/PL ATELE T monocytes 7 % not estab. normal Not Available [facility] ([facility]) [address] [facility], [place], [address], 04/15/2024 17:07:34 04/16/19 25 04/15/2024 CBC WITH DIFFE RENTI AL/PL ATELE T eos 4 % not estab. normal Not Available [facility] ([facility]) [address] [facility], [place], [address], 04/15/2024 17:07:34 04/16/19 25 04/15/2024 CBC WITH DIFFE RENTI AL/PL ATELE T basos 1 % not estab. normal Not Available [facility] ([facility]) [address] [facility], [place], [address], 04/15/2024 17:07:34 04/16/19 25 04/15/2024 CBC WITH DIFFE RENTI AL/PL ATELE T immature cells RECORD PRESS SUPERVISOR Not Available [facility] ([facility]) [address] [place], [address], 04/15/2024 17:07:34 04/16/19 25 04/15/2024 CBC WITH DIFFE RENTI AL/PL ATELE T neutrophils (absolute) 5.4 x10e3 /uL 1.4-7. 0 normal Not Available [facility] ([facility]) [address] [place], [address], 04/15/2024 17:07:34 04/16/19 25 04/15/2024 CBC WITH DIFFE RENTI AL/PL ATELE T lymphs (absolute) 1.2 x10e3 /uL 0.7-3. 1 normal Not Available [facility] ([facility]) [address] [place], [address], 04/15/2024 17:07:34 04/16/19 25 04/15/2024 CBC WITH DIFFE RENTI AL/PL ATELE T monocytes(ab solute) 0.5 x10e3 /uL 0.1-0. 9 normal Not Available [facility] ([facility]) [address] [facility], [place], [address], 04/15/2024 17:07:34 04/16/19 25 04/15/2024 CBC WITH DIFFE RENTI AL/PL ATELE T eos (absolute) 0.3 x10e3 /uL 0.0-0. 4 normal Not Available [facility] ([facility]) [address] [facility], [place], [address], 04/15/2024 17:07:34 04/16/19 25 04/15/2024 CBC WITH DIFFE RENTI AL/PL ATELE T baso (absolute) 0.1 x10e3 /uL 0.0-0. 2 normal Not Available [facility] ([facility]) [address] [facility], [place], [address], 04/15/2024 17:07:34 04/16/19 25 04/15/2024 CBC WITH DIFFE RENTI AL/PL ATELE T immature granulocytes 0 % not estab. Not Available [facility] ([facility]) [address] [place], [address], 04/15/2024 17:07:34 04/16/19 25 04/15/2024 CBC WITH DIFFE RENTI AL/PL ATELE T immature grans (abs) 0.0 x10e3 /uL 0.0-0. 1 Not Available [facility] ([facility]) [address] [facility], [place], [address], 04/15/2024 17:07:34 04/16/19 25 04/15/2024 CBC WITH DIFFE RENTI AL/PL ATELE T NRBC RECORD PRESS SUPERVISOR Not Available [facility] ([facility]) [address] [facility], [place], [address], 04/15/2024 17:07:34 04/16/19 25 04/15/2024 CBC WITH DIFFE KEELEY AL/PARTHA Gomez hematology comments: RECORD PRESS SUPERVISOR Not Available [facility] ([facility]) [address] [facility], [place], [address], 04/15/2024 17:07:34 04/16/19 25 04/15/2024 COMP. METAB OLIC PANEL (14) glucose 111 mg/dL 70-99 above high normal Not Available [facility] ([facility]) [address] [facility] [place], [address], 04/15/2024 17:07:35 04/16/19 25 04/15/2024 COMP. METAB OLIC PANEL (14) BUN 41 mg/dL 8-27 above high normal Not Available [facility] ([facility]) [address] [facility], [place], [address], 04/15/2024 17:07:35 04/16/19 25 04/15/2024 COMP. METAB OLIC PANEL (14) creatinine 2.15 mg/dL 0.57-1 .00 above high normal Not Available [facility] ([facility]) [address] [facility], [place], [address], 04/15/2024 17:07:35 04/16/19 25 04/15/2024 COMP. METAB OLIC PANEL (14) eGFR 26 mL/mi n/1.7 3 >59 below low normal Not Available [facility] ([facility]) [address] [facility] [place], [address], 04/15/2024 17:07:35 04/16/19 25 04/15/2024 COMP. METAB OLIC PANEL (14) BUN/creatini ne ratio 19 12-28 normal Not Available [facility] ([facility]) [address] [facility] [place], [address], 04/15/2024 17:07:35 04/16/19 25 04/15/2024 COMP. METAB OLIC PANEL (14) sodium 140 mmol/ L 134-14 4 normal Not Available [facility] ([facility]) [address] [place], [address], 04/15/2024 17:07:35 04/16/19 25 04/15/2024 COMP. METAB OLIC PANEL (14) potassium 5.1 mmol/ L 3.5-5. 2 normal Not Available [facility] ([facility]) [address] [facility] [place], [address], 04/15/2024 17:07:35 04/16/19 25 04/15/2024 COMP. METAB OLIC PANEL (14) chloride 110 mmol/ L 96-106 above high normal Not Available [facility] ([facility]) [address] [place], [address], 04/15/2024 17:07:35 04/16/19 25 04/15/2024 COMP. METAB OLIC PANEL (14) carbon dioxide, total TNP mmol/ L Test not perfo rmed. Due to a lack of repro ducib ility with this patie nt sampl e, a valid resul t could not be obtai josé miguel. Not Available [facility] ([facility]) [address] [place], [address], 04/15/2024 17:07:35 04/16/19 25 04/15/2024 COMP. METAB OLIC PANEL (14) calcium 8.6 mg/dL 8.7-10 .3 below low normal Not Available [facility] ([facility]) [address] [place], [address], 04/15/2024 17:07:35 04/16/19 25 04/15/2024 COMP. METAB OLIC PANEL (14) protein, total 6.1 g/dL 6.0-8. 5 normal Not Available [facility] ([facility]) [address] [place], [address], 04/15/2024 17:07:35 04/16/19 25 04/15/2024 COMP. METAB OLIC PANEL (14) albumin 3.6 g/dL 3.9-4. 9 below low normal Not Available [facility] ([facility]) [address] [facility] [place], [address], 04/15/2024 17:07:35 04/16/19 25 04/15/2024 COMP. METAB OLIC PANEL (14) globulin, total 2.5 g/dL 1.5-4. 5 Not Available [facility] ([facility]) [address] [facility] [place], [address], 04/15/2024 17:07:35 04/16/19 25 04/15/2024 COMP. METAB OLIC PANEL (14) bilirubin, total 0.2 mg/dL 0.0-1. 2 normal Not Available [facility] ([facility]) [address] [facility] [place], [address], 04/15/2024 17:07:35 04/16/19 25 04/15/2024 COMP. METAB OLIC PANEL (14) alkaline phosphatase 148 IU/L 44-121 above high normal Not Available [facility] ([facility]) [address] [facility] [place], [address], 04/15/2024 17:07:35 04/16/19 25 04/15/2024 COMP. METAB OLIC PANEL (14) AST (SGOT) 27 IU/L 0-40 normal Not Available [facility] ([facility]) [address] [facility] [place], [address], 04/15/2024 17:07:35 04/16/19 25 04/15/2024 COMP. METAB OLIC PANEL (14) ALT (SGPT) 23 IU/L 0-32 normal Not Available [facility] ([facility]) [address] [facility] [place], [address], 04/15/2024 17:07:35 04/16/19 25 04/15/2024 B-TYP E NATRI URETI C PEPTI DE B-type natriuretic peptide 235.2 pg/mL 0.0-10 0.0 above high normal Sieme ns [facility] metho dolog y Not Available [facility] ([facility]) [address] [place], [address], 04/15/2024 17:07:36 04/16/1904/15/2024 PLEAS E NOTE please note Commen t The date and/o r time of colle ction was not indic ated on the requi sitio n as requi red by state and manuel al law. The date of recei pt of the speci men was used as the colle ction date if not suppl ied. Not Available [facility] ([facility]) [address] [place], [address], 04/15/2024 17:07:36 06/19/1906/19/2024 TSH+F REE T4 TSH 5.960 uIU/m L 0.450- 4.500 above high normal Not Available [facility] ([facility]) [address] [place], [address], 06/19/2024 14:15:06 06/19/1906/19/2024 TSH+F REE T4 T4,free(dire ct) 1.28 NG/dL 0.82-1 .77 normal Not Available [facility] ([facility]) [address] [place], [address], 06/19/2024 14:15:06 06/19/19 25 06/19/2024 CBC WITH DIFFE RENTI AL/PL ATELE T WBC 7.5 x10e3 /uL 3.4-10 .8 normal Not Available [facility] ([facility]) [address] [place], [address], 06/19/2024 14:15:07 06/19/19 25 06/19/2024 CBC WITH DIFFE RENTI AL/PL ATELE T RBC 2.98 x10e6 /uL 3.77-5 .28 below low normal Not Available [facility] ([facility]) [address] [place], [address], 06/19/2024 14:15:07 06/19/19 25 06/19/2024 CBC WITH DIFFE RENTI AL/PL ATELE T hemoglobin 7.3 g/dL 11.1-1 5.9 panic low Clien t Reque sted Flag Not Available [facility] ([facility]) [address] [place], [address], 06/19/2024 14:15:07 06/19/19 25 06/19/2024 CBC WITH DIFFE RENTI AL/PL ATELE T hematocrit 25.6 % 34.0-4 6.6 below low normal Not Available [facility] ([facility]) [address] [place], [address], 06/19/2024 14:15:07 06/19/19 25 06/19/2024 CBC WITH DIFFE RENTI AL/PL ATELE T MCV 86 fL 79-97 normal Not Available [facility] ([facility]) [address] [place], [address], 06/19/2024 14:15:07 06/19/19 25 06/19/2024 CBC WITH DIFFE RENTI AL/PL ATELE T MCH 24.5 pg 26.6-3 3.0 below low normal Not Available [facility] ([facility]) [address] [place], [address], 06/19/2024 14:15:07 06/19/19 25 06/19/2024 CBC WITH DIFFE RENTI AL/PL ATELE T MCHC 28.5 g/dL 31.5-3 5.7 below low normal Not Available [facility] ([facility]) [address] [place], [address], 06/19/2024 14:15:06/19/19 25 06/19/2024 CBC WITH DIFFE RENTI AL/PL ATELE T RDW 16.5 % 11.7-1 5.4 above high normal Not Available [facility] ([facility]) [address] [facility], [place], [address], 06/19/2024 14:15:06/19/19 25 06/19/2024 CBC WITH DIFFE RENTI AL/PL ATELE T platelets 332 x10e3 /uL 150-45 0 normal Not Available [facility] ([facility]) [address] [facility], [place], [address], 06/19/2024 14:15:07 06/19/19 25 06/19/2024 CBC WITH DIFFE RENTI AL/PL ATELE T neutrophils 70 % not estab. normal Not Available [facility] ([facility]) [address] [facility], [place], [address], 06/19/2024 14:15:06/19/19 25 06/19/2024 CBC WITH DIFFE RENTI AL/PL ATELE T lymphs 19 % not estab. normal Not Available [facility] ([facility]) [address] [facility], [place], [address], 06/19/2024 14:15:06/19/19 25 06/19/2024 CBC WITH DIFFE RENTI AL/PL ATELE T monocytes 6 % not estab. normal Not Available [facility] ([facility]) [address] [facility], [place], [address], 06/19/2024 14:15:06/19/19 25 06/19/2024 CBC WITH DIFFE RENTI AL/PL ATELE T eos 4 % not estab. normal Not Available [facility] ([facility]) [address] [place], [address], 06/19/2024 14:15:07 06/19/19 25 06/19/2024 CBC WITH DIFFE RENTI AL/PL ATELE T basos 1 % not estab. normal Not Available [facility] ([facility]) [address] [place], [address], 06/19/2024 14:15:07 06/19/19 25 06/19/2024 CBC WITH DIFFE RENTI AL/PL ATELE T immature cells RECORD PRESS SUPERVISOR Not Available [facility] ([facility]) [address] [place], [address], 06/19/2024 14:15:07 06/19/19 25 06/19/2024 CBC WITH DIFFE RENTI AL/PL ATELE T neutrophils (absolute) 5.3 x10e3 /uL 1.4-7. 0 normal Not Available [facility] ([facility]) [address] [place], [address], 06/19/2024 14:15:07 06/19/19 25 06/19/2024 CBC WITH DIFFE RENTI AL/PL ATELE T lymphs (absolute) 1.4 x10e3 /uL 0.7-3. 1 normal Not Available [facility] ([facility]) [address] [place], [address], 06/19/2024 14:15:07 06/19/19 25 06/19/2024 CBC WITH DIFFE RENTI AL/PL ATELE T monocytes(ab solute) 0.5 x10e3 /uL 0.1-0. 9 normal Not Available [facility] ([facility]) [address] [place], [address], 06/19/2024 14:15:07 06/19/19 25 06/19/2024 CBC WITH DIFFE RENTI AL/PL ATELE T eos (absolute) 0.3 x10e3 /uL 0.0-0. 4 normal Not Available [facility] ([facility]) [address] [place], [address], 06/19/2024 14:15:07 06/19/19 25 06/19/2024 CBC WITH DIFFE RENTI AL/PL ATELE T baso (absolute) 0.1 x10e3 /uL 0.0-0. 2 normal Not Available [facility] ([facility]) [address] [facility], [place], [address], 06/19/2024 14:15:07 06/19/19 25 06/19/2024 CBC WITH DIFFE RENTI AL/PL ATELE T immature granulocytes 0 % not estab. Not Available [facility] ([facility]) [address] [facility], [place], [address], 06/19/2024 14:15:07 06/19/19 25 06/19/2024 CBC WITH DIFFE RENTI AL/PL ATELE T immature grans (abs) 0.0 x10e3 /uL 0.0-0. 1 Not Available [facility] ([facility]) [address] [facility], [place], [address], 06/19/2024 14:15:07 06/19/19 25 06/19/2024 CBC WITH DIFFE RENTI AL/PL ATELE T NRBC RECORD PRESS SUPERVISOR Not Available [facility] ([facility]) [address] [facility], [place], [address], 06/19/2024 14:15:07 06/19/19 25 06/19/2024 CBC WITH DIFFE RENTI AL/PL ATELE T hematology comments: RECORD PRESS SUPERVISOR Not Available [facility] ([facility]) [address] [facility], [place], [address], 06/19/2024 14:15:07 06/19/19 25 06/19/2024 COMP. METAB OLIC PANEL (14) glucose 110 mg/dL 70-99 above high normal Not Available [facility] ([facility]) [address] [place], [address], 06/19/2024 14:15:07 06/19/19 25 06/19/2024 COMP. METAB OLIC PANEL (14) BUN 45 mg/dL 8-27 above high normal Not Available [facility] ([facility]) [address] [facility] [place], [address], 06/19/2024 14:15:07 06/19/19 25 06/19/2024 COMP. METAB OLIC PANEL (14) creatinine 2.01 mg/dL 0.57-1 .00 above high normal Not Available [facility] ([facility]) [address] [facility] [place], [address], 06/19/2024 14:15:07 06/19/19 25 06/19/2024 COMP. METAB OLIC PANEL (14) eGFR 28 mL/mi n/1.7 3 >59 below low normal Not Available [facility] ([facility]) [address] [facility] [place], [address], 06/19/2024 14:15:07 06/19/19 25 06/19/2024 COMP. METAB OLIC PANEL (14) BUN/creatini ne ratio 22 12-28 normal Not Available [facility] ([facility]) [address] [facility] [place], [address], 06/19/2024 14:15:07 06/19/19 25 06/19/2024 COMP. METAB OLIC PANEL (14) sodium 139 mmol/ L 134-14 4 normal Not Available [facility] ([facility]) [address] [place], [address], 06/19/2024 14:15:07 06/19/19 25 06/19/2024 COMP. METAB OLIC PANEL (14) potassium 5.1 mmol/ L 3.5-5. 2 normal Not Available [facility] ([facility]) [address] [place], [address], 06/19/2024 14:15:07 06/19/19 25 06/19/2024 COMP. METAB OLIC PANEL (14) chloride 113 mmol/ L 96-106 above high normal Not Available [facility] ([facility]) [address] [place], [address], 06/19/2024 14:15:06/19/19 25 06/19/2024 COMP. METAB OLIC PANEL (14) carbon dioxide, total 13 mmol/ L 20-29 below low normal Abnor mal resul t has been verif ied by ross ellis. If incon siste nt with clini sangeetha condi tion, pleas e resub viri anoth er speci men for verif icati on and to rule out speci men handl ing probl ems for which this test is very sensi tive. Not Available [facility] ([facility]) [address] [facility], [place], [address], 06/19/2024 14:15:06/19/19 25 06/19/2024 COMP. METAB OLIC PANEL (14) calcium 8.8 mg/dL 8.7-10 .3 normal Not Available [facility] ([facility]) [address] [place], [address], 06/19/2024 14:15:07 06/19/19 25 06/19/2024 COMP. METAB OLIC PANEL (14) protein, total 6.4 g/dL 6.0-8. 5 normal Not Available [facility] ([facility]) [address] [place], [address], 06/19/2024 14:15:07 06/19/19 25 06/19/2024 COMP. METAB OLIC PANEL (14) albumin 3.7 g/dL 3.9-4. 9 below low normal Not Available [facility] ([facility]) [address] [place], [address], 06/19/2024 14:15:07 06/19/19 25 06/19/2024 COMP. METAB OLIC PANEL (14) globulin, total 2.7 g/dL 1.5-4. 5 Not Available [facility] ([facility]) [address] [facility] [place], [address], 06/19/2024 14:15:07 06/19/19 25 06/19/2024 COMP. METAB OLIC PANEL (14) bilirubin, total <0.2 mg/dL 0.0-1. 2 Not Available [facility] ([facility]) [address] [facility] [place], [address], 06/19/2024 14:15:07 06/19/19 25 06/19/2024 COMP. METAB OLIC PANEL (14) alkaline phosphatase 131 IU/L 44-121 above high normal Not Available [facility] ([facility]) [address] [facility], [place], [address], 06/19/2024 14:15:07 06/19/19 25 06/19/2024 COMP. METAB OLIC PANEL (14) AST (SGOT) 10 IU/L 0-40 normal Not Available [facility] ([facility]) [address] [facility] [place], [address], 06/19/2024 14:15:07 06/19/19 25 06/19/2024 COMP. METAB OLIC PANEL (14) ALT (SGPT) 12 IU/L 0-32 normal Not Available [facility] ([facility]) [address] [facility] [place], [address], 06/19/2024 14:15:07 06/19/19 25 06/19/2024 LIPID PANEL cholesterol, total 119 mg/dL 100-19 9 normal Not Available [facility] ([facility]) [address] [facility] [place], [address], 06/19/2024 14:15:08 06/19/19 25 06/19/2024 LIPID PANEL triglyceride s 55 mg/dL 0-149 normal Not Available [facility] ([facility]) [address] [place], [address], 06/19/2024 14:15:08 06/19/19 25 06/19/2024 LIPID PANEL HDL cholesterol 36 mg/dL >39 below low normal Not Available [facility] ([facility]) [address] [facility] [place], [address], 06/19/2024 14:15:08 06/19/19 25 06/19/2024 LIPID PANEL VLDL cholesterol sangeetha 12 mg/dL 5-40 Not Available [facility] ([facility]) [address] [facility] [place], [address], 06/19/2024 14:15:06/19/19 25 06/19/2024 LIPID PANEL LDL chol calc ([facility]) 71 mg/dL 0-99 Not Available [facility] ([facility]) [address] [facility] [place], [address], 06/19/2024 14:15:08 06/19/19 25 06/19/2024 LIPID PANEL LDL calc comment: RECORD PRESS SUPERVISOR Not Available [facility] ([facility]) [address] [facility], [place], [address], 06/19/2024 14:15:06/19/19 25 06/19/2024 VITAM IN B12 AND FOLAT E vitamin B12 488 pg/mL 232-12 45 normal Not Available [facility] ([facility]) [address] [facility] [place], [address], 06/19/2024 14:15:06/19/19 25 06/19/2024 VITAM IN B12 AND FOLAT E folate (folic acid), serum 5.8 NG/mL >3.0 normal A serum folat e kurt ntrat ion of less than 3.1 ng/mL is consi dered to repre sent clini sangeetha defic iency . Not Available [facility] ([facility]) [address] [facility] [place], [address], 06/19/2024 14:15:09 06/19/1906/19/2024 HEMOG LOBIN A1C hemoglobin A1C 6.4 % 4.8-5. 6 above high normal Predi abete s: 5.7 - 6.4 Diabe jo ann: >6.4 Glyce galileo contr ol for adult s with diabe jo ann: <7.0 Not Available [facility] ([facility]) [address] [facility], [place], [address], 06/19/2024 14:15:09 08/12/19 25 08/11/2024 drug scree n, urine AMP negati ve Not Available [address], [address], 08/11/2024 14:56:09 08/12/19 25 08/11/2024 drug scree n, urine BAR negati ve Not Available [address], [address], 08/11/2024 14:56:09 08/12/19 25 08/11/2024 drug scree n, urine BUP negati ve Not Available [address], [address], 08/11/2024 14:56:09 08/12/19 25 08/11/2024 drug scree n, urine BZO negati ve Not Available [address], [address], 08/11/2024 14:56:09 08/12/19 25 08/11/2024 drug scree n, urine STACY negati ve Not Available [address], [address], 08/11/2024 14:56:09 08/12/19 25 08/11/2024 drug scree n, urine FTY negati ve Not Available [address], [address], 08/11/2024 14:56:09 08/12/19 25 08/11/2024 drug scree n, urine MDMA negati ve Not Available [address], [address], 08/11/2024 14:56:09 08/12/1908/11/2024 drug scree n, urine MET negati ve Not Available [address], [address], 08/11/2024 14:56:09 08/12/1908/11/2024 drug scree n, urine MOP negati ve Not Available [address], [address], 08/11/2024 14:56:09 08/12/19 25 08/11/2024 drug scree n, urine MTD negati ve Not Available [address], [address], 08/11/2024 14:56:09 08/12/1908/11/2024 drug scree n, urine OXY negati ve Not Available [address], [address], 08/11/2024 14:56:09 08/12/1908/11/2024 drug scree n, urine PCP negati ve Not Available [address], [address], 08/11/2024 14:56:09 08/12/1908/11/2024 drug scree n, urine TCA negati ve Not Available [address], [address], 08/11/2024 14:56:09 08/12/19 25 08/11/2024 drug scree n, urine THC positi ve Not Available [address], [place], [place], [address], 08/11/2024 14:56:09 03/05/19 25 03/05/2024 CT, abdom en + pelvi s, w/o contr ast No observ ation record ed. [facility] [address], [place], [address], 03/05/2024 15:21:51 03/05/19 25 03/05/2024 CT, chest , w/o contr ast No observ ation record ed. [place] [id number], [place], [address], 03/05/2024 15:21:51 03/08/19 25 03/05/2024 elect rocar diogr am No observ ation record ed. [place] [id number], [place], [address], 03/09/2024 08:21:13 03/15/19 25 03/15/2024 XR, chest , 2 view No observ ation record ed. [place] [id number], [place], [address], 03/16/2024 10:06:59 03/15/19 25 03/15/2024 CT, angio gram, chest , w/ contr ast No observ ation record ed. [place] [id number], [place], [address], 03/16/2024 10:06:24 03/15/19 25 03/15/2024 CT, angio gram, chest , w/ contr ast No observ ation record ed. [place] [id number], [place], [address], 03/16/2024 10:05:58 03/16/19 25 03/15/2024 elect rocar diogr am No observ ation record ed. [facility] [address], [place], [place], [address], 03/16/2024 13:50:58 03/16/19 25 03/15/2024 elect rocar diogr am No observ ation record ed. [facility] [address], [place], [place], [address], 03/16/2024 13:50:44 03/17/19 25 03/17/2024 XR, chest , 2 view No observ ation record ed. [facility] [address], [place], [place], [address], 03/17/2024 13:18:34 03/17/19 25 03/16/2024 stres s echoc ardio gram with doppl er color flow (PROC ) No observ ation record ed. [facility] [address], [place], [place], [address], 03/17/2024 13:18:15 03/19/19 25 03/19/2024 XR, chest , 2 view No observ ation record ed. [facility] [address], [place], [place], [address], 03/19/2024 08:41:39 04/10/19 25 04/10/2024 XR, chest , 2 view No observ ation record ed. [facility] [address], [place], [address], 04/10/2024 16:14:04 04/17/19 25 04/16/2024 XR, chest , 2 view No observ ation record ed. [facility] (X-Ray) [address], [place], [address], 04/16/2024 14:20:52 04/18/19 25 04/16/2024 XR, chest , 2 view No observ ation record ed. [facility] [address], [place], [address], 04/17/2024 11:56:42 04/22/19 25 04/16/2024 elect rocar diogr am No observ ation record ed. [facility] [address], [place], [place], [address], 04/23/2024 08:20:46 04/23/19 25 04/21/2024 , [facility] ardio gram, trans esoph ageal No observ ation record ed. [facility] [address], [place], [place], [address], 04/23/2024 08:20:47 04/28/19 25 04/21/2024 elect rocar diogr am No observ ation record ed. [facility] [address], [place], [address], 04/27/2024 09:33:58 04/28/19 25 04/21/2024 elect rocar diogr am No observ ation record ed. [facility] [address], [place], [address], 04/27/2024 09:33:58 07/03/19 25 07/01/2024 LDCT, chest , for lung cance r scree aaliyah No observ ation record ed. [facility] [address], [place], [address], 07/03/2024 09:03:51 10/06/19 25 10/05/2024 elect rocar diogr am No observ ation record ed. [facility] [address], [place], [address], 10/06/2024 08:11:23 Result Notes None recorded. 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 Ivonne Jones APRN [address], [place], [address], [place] - [facility] 4 14:58:47 Disorder of bone 00402239 Active 2015 Crystal Julianne null, [place] - [facility] 6 09:30:30 History of cardiovascu lar disease 546366121 Active 2015 Ivonne Jones APRN [address], [place], [address], [place] [facility] 4 14:59:00 Colostomy present 575192853 Completed 201509/03/2017 Dinorah Sharp jeff, [place] - [facility] 8 13:35:52 Type 2 diabetes mellitus 73311851 Active 2015 Ivonne Jones APRN [address], [place], [address], [place] [facility] 4 14:58:43 Hyperlipide farooq 75471492 Active 2015 Ivonne Jones APRN [address], [place], [address], [place] [facility] 4 14:58:53 History of hypertensio n 086969629 Active 2015 Ivonne Jones CLIENT SUPPORT ANALYST [address], [place], [address], [place] [facility] 4 14:58:55 Hypothyroid ism 83415708 Active 2015 Ivonne Jones APRN [address], [place], [address], [place] [facility] 4 14:58:51 Neuropathy due to diabetes mellitus 692627449 Active 2015 Ivonne Jones, CHONG [address], [place], [address], [place] [facility] 4 14:58:46 Pancreatiti s 87101860 Active 2015 Crystal Julianne null, [place] [facility] 6 09:32:11 Spasm of urinary bladder 044751032 Completed 201511/23/2015 Crystal Julianne null[place] [facility] 6 09:32:45 Insomnia 478969322 Active 2016 Eugvioleta Jones, CHONG [address], [place], [address], [place] [facility] 4 14:58:50 Candidiasis 40604537 Active 2017 Vincent Amin MD [address], [place], [address], [place] [facility] 8 15:37:13 Fatigue 18010571 Active 2017 Anne aguilar, [place] - [facility] 8 10:26:48 Urostomy present 426913553 Active 2017 Ivonne Jones, CHONG [address], [place], [address], [place] [facility] 4 14:58:41 External hordeolum 6683338 Active 2017 Vincent Amin MD [address], [place], [address] [facility] 8 12:11:25 Depressive disorder 51228110 Active 2023 Ivonne Jnoes, CHONG [address], [place], [address], [place] [facility] 4 14:59:02 Chronic obstructive pulmonary disease 90966665 Active 2024 Ivonne Jones APRN [address], [place], [address], [place] [facility] 5 15:11:34 Congestive heart failure 14841391 Active 2024 Eugonda Fryman, CLIENT SUPPORT ANALYST [address], [place], [address], [place] [facility] 15:45:47 Blood group O Rh(D) positive 688381649 Active 2024 Ivonne Jones, CLIENT SUPPORT ANALYST [address], [place], [address], [place] [facility] 11:32:24 Problem Notes None recorded. Procedures Surgical History Date Name Laterality Status Provider Name and Address Organization Details Recorded Time 03/26/19 Medication Reconcilliation completed Cara Campos [place] [facility] 03/26/2024 14:58:06 12/24/19 24 Medication Reconcilliation completed Elly Aldairs [place] [facility] 12/24/2023 10:40:11 12/13/19 24 cardiac catheterization completed Elly Stears [place] [facility] 12/24/2023 10:42:22 06/17/19 24 In and Out Catheterization completed Cara Campos [place] [facility] 06/17/2023 14:04:19 02/22/19 05 Colposcopy completed Elly Aldairs [place] [facility] 02/26/2023 13:55:57 Defibrillator [place] completed Elly Stears [place] [facility] 02/26/2023 14:10:41 coronary artery bypass graft completed Elly Stears [place] [facility] 02/26/2023 14:11:12 Cholecystectomy, laparoscopic completed Elly Stears [place] [facility] 02/26/2023 14:11:27 excision of urinary bladder completed Elly Stears [place] [facility] 02/26/2023 14:13:12 cardiac catheterization completed Elly Stears [place] [facility] 02/26/2023 14:13:48 Pacemaker Placement completed Elly Stears [place] [facility] 05/19/2024 10:34:47 delivery completed Crystal Julianne [place] [facility] 11/23/2015 09:34:57 Hysterectomy completed Crystal Julianne [place] [facility] 11/23/2015 09:37:20 Imaging Results None recorded. Procedure Notes None recorded. Medical Equipment None Reported. Allergies Allergen ID Allergen Name Allergen Category Reaction Reaction Severity Criticality Documentation Date Start Date Code Code System Note Provider Name and Address Organization Details Recorded Time 75664 ibuprofen medicatio n Not available Not available Not available 11/18/20152014 5640 RxNorm Elly Stears null, [place] - [facility] 14:03:15 Medications Name Sig Start Date Stop Date Status Note LastModified by Organization Details LastModified Time Prescript ion - Renewal 07/11 completed [facility] Not Available Not Available Not Available Prescript ion - Clarifica tion 09/23 completed [facility] Not Available Not Available Not Available penicilli n V potassium 250 mg tablet Take 1 tablet twice a day by oral route. 08/11 completed Not Available Not Available Not Available cyclobenz aprine 10 mg tablet take 1 tablet (10 mg) by oral route 3 times per day for 10 days 04/24 completed cycloben zaprine 10 mg oral tablet;P rescribe Status: Prescrib ed on: 12/28/19 15 2:11PM;D iscontin ued Status: Disconti nued on: 04/25/19 16 10:29AM; User: gored;Es t. Completi on: 01/17/20 15;Pharm acyVerif ied: 12/28/19 15 2:11PM Not Available Not Available Not Available furosemid e 40 mg tablet TAKE ONE TABLET BY MOUTH EVERY DAY 04/14 completed Not Available Not Available Not Available Miralax 17 gram/dose oral powder Take 17 g every day by oral route. 2024 active Not Available Not Available Not Avai lable fluconazo le 100 mg tablet Take 1 tablet every day by oral route as directed for 2 days. 06/27 completed Not Available Not Available Not Available atorvasta tin 40 mg tablet TAKE 1 TABLET BY MOUTH ONCE A DAY active Not Available Not Available No t Available buspirone 5 mg tablet take 1 tablet (5 mg) by oral route 3 times per day for 30 days 09/26 completed buspiron e 5 mg oral tablet;R ecorded Status: Recorded on: 04/25/19 16 11:08AM; Disconti nued Status: Disconti nued on: 09/27/19 16 2:00PM;U ser: gored;Es t. Completi on: 05/25/19 16;Indic ation: Generali zed Anxiety Disorder - () Not Available Not Available Not Available Novolin 70/30 U-100 Insulin 100 unit/mL subcutane ous suspensio n INJECT 25 UNITS SUBCUTAN EOUSLY TWO (2) TIMES A DAY 06/16 completed Not Available Not Available Not Available nystatin 100,000 unit/mL oral suspensio n Take 5 mL 4 times a day by oral route for 14 days. 03/26 completed Not Available Not Available Not Available carvedilo l 6.25 mg tablet TAKE ONE TABLET BY MOUTH 2 TIMES A DAY WITH FOOD 09/23 completed Not Available Not Available Not Available prednison e 10 mg tablet TAKE ONE (1) TABLET TWICE A DAY BY ORAL ROUTE FOR FIVE (5) DAYS. 12/23 completed Not Available Not Available Not Available atorvasta tin 20 mg tablet TAKE ONE TABLET BY MOUTH EVERY DAY FOR CHOLESTE ROL 09/23 completed Not Available Not Available Not Available ropinirol e 1 mg tablet TAKE 1 TABLET BY MOUTH AT BEDTIME active Not Available Not Available No t Available torsemide 20 mg tablet TAKE 1 TABLET BY MOUTH ONCE A DAY active Not Available Not Available No t Available clindamyc in HCl 300 mg capsule 03/29 completed Not Available Not Available Not Available albuterol sulfate 2.5 mg/3 mL (0.083 %) solution for nebulizat ion Inhale 3 mL 3 times a day by nebuliza tion route as needed for 30 days, for shortnes s of breath. active Not Available Not Available No t Available citalopra m 40 mg tablet TAKE ONE TABLET BY MOUTH EVERY DAY 02/26 completed Not Available Not Available Not Available BD Insulin Syringe 1 mL 25 x 1 use as directed for 30 days 10/26 completed BD Insulin Syringe 1 mL 25 x 1 miscella neous syringe; Prescrib e Status: Prescrib ed on: 08/31/19 15 9:59AM;D iscontin ued Status: Disconti nued on: 10/27/19 15 10:19AM; User: dylan;Es t. Completi on: 11/29/19 15;Pharm acyVerif ied: 08/31/19 15 9:59AM Not Available Not Available Not Available trazodone 50 mg tablet TAKE 1 TABLET BY MOUTH ONCE A DAY NEEDED active Not Available Not Available No t Available azithromy ann marie 250 mg tablet TAKE TWO TABLETS BY MOUTH ONCE DAILY FOR ONE DAY (take 12/19/23) -- FINISH ALL MEDICINE -- 12/23 completed Not Available Not Available Not Available alprazola m 1 mg tablet one po tid prn anxiety 01/25 completed Not Available Not Available Not Available fluconazo le 150 mg tablet Take 1 tablet every day by oral route for 10 days. 08/22 completed Not Available Not Available Not Available amiodaron e 200 mg tablet TAKE 2 TABLETS BY MOUTH ONCE A DAY active Not Available Not Available No t Available citalopra m 10 mg tablet 1 every day 03/26 completed Not Available Not Available Not Available hydrocodo ne 5 mg-acetam inophen 325 mg tablet take 1 tablet by mouth once per day 03/26 completed Not Available Not Available Not Available Nystop 100,000 unit/gram topical powder APPLY TO THE AFFECTED AREA(S) 2 TIMES A DAY active Not Available Not Available No t Available fluconazo le 200 mg tablet Take 1 tablet every day by oral route for 30 days. 10/29 completed Not Available Not Available Not Available Doc-Q-Lac e 100 mg capsule TAKE ONE CAPSULE BY MOUTH EVERY DAY 02/26 completed Not Available Not Available Not Available clopidogr el 75 mg tablet TAKE 1 TABLET BY MOUTH ONCE A DAY active Not Available Not Available No t Available sulfameth oxazole 800 mg-trimet hoprim 160 mg tablet Take 1 tablet every 12 hours by oral route for 10 days. 09/23 completed Not Available Not Available Not Available aspirin 81 mg tablet,de layed release TAKE ONE TABLET BY MOUTH EVERY DAY 03/26 completed Not Available Not Available Not Available tramadol 50 mg tablet Take 1 tablet(s ) 3 times a day by oral route for 30 days. 09/23 completed Not Available Not Available Not Available triamcino lone acetonide 0.1 % topical cream Apply 1 applicat ion 3 times a day by topical route as directed . 02/26 completed Not Available Not Available Not Available carvedilo l 3.125 mg tablet TAKE ONE TABLET BY MOUTH EVERY DAY 02/26 completed Not Available Not Available Not Available levothyro xine 25 mcg tablet TAKE 1 TABLET BY MOUTH ONCE A DAY active Not Available Not Available No t Available Macrobid 100 mg capsule take 1 capsule (100 mg) by oral route 2 times per day with food for 7 days 06/28 completed Macrobid 100 mg oral capsule; Prescrib e Status: Prescrib ed on: 06/08/19 16 10:12AM; Disconti nued Status: Disconti nued on: 06/29/19 16 8:43AM;U ser: [email or web address]; Est. Completi on: 06/15/19 16;Pharm acyVerif ied: 06/08/19 16 10:12AM Not Available Not Available Not Available alprazola m 0.5 mg tablet TAKE 1 TABLET BY MOUTH 2 TIMES A DAY active Not Available Not Available No t Available ceftriaxo ne 1 gram solution for injection Take 1 g by injectio n route. 06/24 completed Not Available Not Available Not Available citalopra m 20 mg tablet TAKE 1 TABLET BY MOUTH AT BEDTIME active Not Available Not Available No t Available potassium chloride ER 20 mEq tablet,ex tended release(p art/cryst ) 08/28 completed Not Available Not Available Not Available cephalexi n 500 mg capsule Take 1 capsule twice a day by oral route for 7 days, for uti. 10/16 completed Not Available Not Available Not Available pantopraz ole 40 mg tablet,de layed release TAKE 1 TABLET BY MOUTH ONCE A DAY active Not Available Not Available No t Available Cipro 500 mg tablet take 1 tablet (500 mg) by oral route 2 times per day for 10 days 02/15 completed Cipro 500 mg oral tablet;P rescribe Status: Prescrib ed on: 01/27/20 15 9:27AM;D iscontin ued Status: Disconti nued on: 02/15/19 16 3:34PM;U ser: gored;Es t. Completi on: 02/06/20 15;Pharm acyVerif ied: 01/27/20 15 9:27AM Not Available Not Available Not Available nystatin 100,000 unit/gram topical cream APPLY TO THE AFFECTED AREA(S) BY TOPICAL ROUTE 2 TIMES PER DAY 03/26 completed Not Available Not Available Not Available losartan 25 mg tablet 1 tablet at bedtime 12/23 completed Not Available Not Available Not Available nystatin- triamcino lone 100,000 unit/g-0. 1 % topical cream APPLY TO THE AFFECTED AREA(S) BY TOPICAL ROUTE 2 TIMES PER DAY IN THEMORNI NG AND EVENING 03/12 completed Not Available Not Available Not Available gabapenti n 300 mg capsule TAKE ONE CAPSULE BY MOUTH AT BEDTIME 03/26 completed Not Available Not Available Not Available hydroxyzi ne HCl 25 mg tablet 09/23 completed Not Available Not Available Not Available pravastat in 20 mg tablet TAKE ONE TABLET BY MOUTH EVERY DAY 02/26 completed Not Available Not Available Not Available mupirocin 2 % topical ointment APPLY A SMALL AMOUNT TO THE AFFECTED AREA BY TOPICAL ROUTE 3 TIMES PER DAY 03/12 completed Not Available Not Available Not Available zolpidem 5 mg tablet Take 1 tablet every day by oral route for 30 days. 03/26 completed Not Available Not Available Not Available furosemid e 20 mg tablet 02/26 completed Not Available Not Available Not Available permethri n 1 % topical liquid apply a sufficie nt amount of shampoo by topical route once allow to remain on hair for 10 minutes before rinsing off with water 09/26 completed permethr in 1 % topical liquid;P rescribe Status: Prescrib ed on: 08/25/19 16 3:50PM;D iscontin ued Status: Disconti nued on: 09/27/19 16 2:00PM;[facility] Pharmacy Verified : 08/25/19 16 3:50PM Not Available Not Available Not Available ergocalci ferol (vitamin D2) 1,250 mcg (50,000 unit) capsule Take 1 capsule every week by oral route as directed . active Not Available Not Available No t Available insulin lispro (U-100) 100 unit/mL subcutane ous solution INJECT DIRECTED PER SLIDING SCALE VIA INSULIN PUMP TO MAXIMUM OF 80 UNITS PER DAY active Not Available Not Available No t Available levofloxa ann marie 500 mg tablet 02/26 completed Not Available Not Available Not Available levofloxa ann marie 750 mg tablet TAKE ONE TABLET BY MOUTH EVERY 48 hours FOR 3 DAYS first DOSE 2/8/25 02/13 /2025 completed Not Available Not Available Not Available albuterol sulfate HFA 90 mcg/actua tion aerosol inhaler INHALE TWO (2) PUFFS FOUR TIMES A DAY NEEDED FOR SHORTNES S OF BREATH OR WHEEZING active Not Available Not Available No t Available cefdinir 300 mg capsule TAKE ONE CAPSULE BY MOUTH TWICE DAILY FOR ONE DAY STARTING ON 12/19/23 -- FINISH ALL MEDICINE -- 12/23 completed Not Available Not Available Not Available lisinopri l 2.5 mg tablet TAKE TWO TABLETS BY MOUTH EVERY DAY 02/26 completed Not Available Not Available Not Available BD Insulin Syringe 1 mL 26 x 1/2 use as directed for 30 days 03/12 completed BD Insulin Syringe 1 mL 26 x 1/2 miscella neous syringe; Prescrib e Status: Prescrib ed on: 08/25/19 16 3:50PM;U ser: [email or web address]; Est. Completi on: 11/23/19 16;Pharm acyVerif ied: 08/25/19 16 3:50PM Not Available Not Available Not Available neomycin 3.5 mg/g-poly myxin B 10,000 unit/g-de xameth 0.1 % eye oint APPLY A SMALL AMOUNT INTO THE CONJUNCT IVAL SAC(S) IN AFFECTED EYE(S) BY OPHTHALM IC ROUTE 3 TIMES PER DAY 03/12 completed Not Available Not Available Not Available Novolog Mix 70-30 FlexPen U-100 Insulin 100 unit/mL subcutane ous pen Inject 6 units twice a day by subcutan eous route for 30 days. 2023 active Not Available Not Available Not Avai lable iron 325 mg (65 mg iron) tablet take 1 tablet by oral route daily for 30 days 09/26 completed iron 325 mg (65 mg iron) oral tablet;P rescribe Status: Prescrib ed on: 06/30/19 16 4:45PM;U ser: [email or web address]; Est. Completi on: 09/28/19 16;Pharm acyVerif ied: 06/30/19 16 4:45PM Not Available Not Available Not Available potassium chloride ER 10 mEq tablet,ex tended release(p art/cryst ) 02/26 completed Not Available Not Available Not Available metoprolo l tartrate 25 mg tablet TAKE ONE TABLET BY MOUTH TWICE DAILY 09/07 completed causes hypotens ion Not Available Not Available Not Available Pain Relief (acetamin ophen) 500 mg tablet take 1 tablet by oral route daily for 30 days 09/23 completed Pain Relief 500 mg oral tablet;R ecorded Status: Recorded on: 04/25/19 10:29AM; User: penrodc Not Available Not Available Not Available ceftriaxo ne 2 gram/50 mL in dextrose (iso-osm) intraveno us piggyback 03/12 completed Not Available Not Available Not Available ramelteon 8 mg tablet 05/06 completed Not Available Not Available Not Available chlorhexi dine gluconate 0.12 % mouthwash 02/26 completed Not Available Not Available Not Available Contour Test Strips Take 1 strip twice a day by miscell. route. 2024 active Not Available Not Available Not Avai lable BD Ultra-Fin e Short Pen Needle 31 gauge x 5/16 DIRECTED active Not Available Not Available No t Available Easy Touch Insulin Syringe 0.5 mL 31 gauge x 5/16 USE DIRECTED WITH INSULIN active Not Available Not Available No t Available cholecalc iferol (vitamin D3) 25 mcg (1,000 unit) tablet TAKE ONE TABLET BY MOUTH ONCE A DAY 2024 active Not Available Not Available Not Avai lable Lantus Solostar U-100 Insulin 100 unit/mL (3 mL) subcutane ous pen Inject 8 units every day by subcutan eous route at bedtime. 2023 active Not Available Not Available Not Avai lable turmeric root extract 500 mg capsule take 1 capsule by oral route daily for 90 days 09/23 completed turmeric root extract 500 mg oral capsule; Recorded Status: Recorded on: 04/25/19 16 10:29AM; User: [email or web address] Not Available Not Available Not Available Eliquis 5 mg tablet TAKE 1 TABLET BY MOUTH 2 TIMES A DAY active Not Available Not Available No t Available BD Insulin Syringe Ultra-Fin e 1 mL 31 gauge x 5/16 active Not Available Not Available Not Available Farxiga 10 mg tablet TAKE 1 TABLET BY MOUTH ONCE A DAY active Not Available Not Available No t Available Farxiga 5 mg tablet Take 1 tablet every day by oral route for 90 days. 02/12 completed Not Available Not Available Not Available Hetlioz 20 mg capsule Take 1 capsule every day by oral route. 09/23 completed Not Available Not Available Not Available Entresto 24 mg-26 mg tablet TAKE 1 TABLET BY MOUTH 2 TIMES A DAY active Not Available Not Available No t Available Vraylar 1.5 mg capsule TAKE 1 CAPSULE BY MOUTH ONCE A DAY active Not Available Not Available No t Available Soliqua 100/33 100 unit-33 mcg/mL subcutane ous insulin pen 02/26 completed Not Available Not Available Not Available Tabulous CloudToEsanex Ultra Blue Test Strip TEST BLOOD SUGAR EVERY DAY DIRECTED 03/12 completed Not Available Not Available Not Available Dexcom G6 Transmitt er device USE DIRECTED 12/23 completed Not Available Not Available Not Available Omnipod 5 G6 Pods (Gen 5) subcutane ous cartridge DIRECTED CHANGING EVERY THREE (3) DAYS 12/23 completed Not Available Not Available Not Available Omnipod 5 G6 Intro Kit (Gen 5) subcutane ous cartridge with controlle r DIRECTED 12/23 completed Not Available Not Available Not Available Dexcom G7 Asp Developer DIRECTED active Not Available Not Available No t Available Dexcom G7 Sensor device USE DIRECTED CHANGING EVERY 10 DAYS active Not Available Not Available No t Available Breyna 80 mcg-4.5 mcg/actua tion HFA aerosol inhaler active Not Available Not Available Not Available Vitals Date Recorded Body height Body mass index (BMI) Body weight Heart rate Oxygen saturation Oxygen saturation in Arterial blood by Pulse oximetry Respiratory rate Pain severity - 0-10 verbal numeric rating [Score] - Reported Systolic And Diastolic Provider Name and Address Organization Details Last Updated DateTime 5 154.94 cm 25.3 kg/m2 44631.3 8 g 62 /min 98 % 98 % 18 /min 0 94/60 mm[Hg] Cara Campos [place] - [facility] 5 15:09:52 Date Recorded Body height Body mass index (BMI) Body weight Heart rate Oxygen saturation Oxygen saturation in Arterial blood by Pulse oximetry Respiratory rate Pain severity - 0-10 verbal numeric rating [Score] - Reported Systolic And Diastolic Provider Name and Address Organization Details Last Updated DateTime 5 154.94 cm 28.3 kg/m2 72873.8 6 g 120 /min 98 % 98 % 18 /min 0 96/62 mm[Hg] Cara Campos [facility] 5 11:37:47 Date Recorded Body height Respiratory rate Body mass index (BMI) Body weight Heart rate Oxygen saturation Oxygen saturation in Arterial blood by Pulse oximetry Body temperature Systolic And Diastolic Provider Name and Address Organization Details Last Updated DateTime 5 154.94 cm 18 /min 25.5 kg/m2 47709.9 7 g 70 /min 97 % 97 % 97.7 [degF] 104/62 mm[Hg] Elly Wang [place] - [facility] 5 13:44:39 Date Recorded Body height Body mass index (BMI) Body weight Heart rate Oxygen saturation Oxygen saturation in Arterial blood by Pulse oximetry Respiratory rate Pain severity - 0-10 verbal numeric rating [Score] - Reported Systolic And Diastolic Provider Name and Address Organization Details Last Updated DateTime 5 154.94 cm 26.5 kg/m2 20515.9 3 g 60 /min 98 % 98 % 18 /min 0 110/68 mm[Hg] Cara Campos [facility] 5 14:10:55 Date Recorded Body height Respiratory rate Body mass index (BMI) Body weight Body temperature Systolic And Diastolic Provider Name and Address Organization Details Last Updated DateTime 5 154.94 cm 20 /min 24.8 kg/m2 96417.6 g 97.8 [degF] 112/64 mm[Hg] Ellyantonio Quinterospatrick [place] - [facility] 5 13:51:31 Social History Question Answer Notes LastModified by Organizat ion Details LastModified Time Tobacco Smoking Status Current Every Day Smoker Dariela aguilar [facility] 11/23/2015 09:34:05 Do You Have An Advance Directive? No Information not available 02/26/2023 Are You Blind Or Do You Have Difficulty Seeing? No Information not available 02/26/2023 Is Blood Transfusion Acceptable In An Emergency? No Information not available 02/26/2023 What Is Your Level Of Caffeine Consumption? Occasional Information not available 02/26/2023 How Much Tobacco Do You Chew? None Information not available 02/26/2023 In The 14 Days Before Symptom Onset, Have You Had Close Contact With A Laboratory-confir med COVID-19 While That Case Was Ill? No Information not available 04/15/2023 In The 14 Days Before Symptom Onset, Have You Had Close Contact With A Person Who Is Under Investigation For COVID-19 While That Person Was Ill? No Information not available 04/15/2023 Have You Been To An Area Known To Be High Risk For COVID-19? No Information not available 04/15/2023 Are You Deaf Or Do You Have Serious Difficulty Hearing? No [email or web address] Information not available 11/23/2015 What Type Of Diet Are You Following? REGULAR [email or web address] Information not available 10/29/2016 Which Illicit Or Recreational Drugs Have You Used? Marijuana Information not available 02/26/2023 Have You Processed Blood Or Body Fluids From An Ebola Virus Disease Patient Without Appropriate PPE? No Information not available 04/15/2023 Do You Reside In Or Have You Traveled To An Area Where Ebola Virus Transmission Is Active? No Information not available 04/15/2023 What Is The Highest Grade Or Level Of School You Have Completed Or The Highest Degree You Have Received? [id number] Information not available 02/26/2023 Have There Been Any Changes To Your Family Or Social Situation? No Information no t available 02/26/2023 What Is The Fluoride Status Of Your Home? Unknown Information not available 02/26/2023 Hard Of Hearing Or Deaf In One Or Both Ears? No Information not available 02/26/2023 Have You Recently Or Are You Planning To Travel To An Area With Zika Virus? No Information not available 04/15/2023 Legally Blind In One Or Both Eyes? No Information no t available 02/26/2023 Live Alone Or With Others? With Others Information not available 02/26/2023 Do You Have A Medical Power Of Brace End Mainspring Former? No Information not available 02/26/2023 What Was The Date Of Your Most Recent Tobacco Screening? 03/02/2024 Information not available 03/02/2024 How Many Children Do You Have? 2 Information not available 02/26/2023 What Is Your Current Pack Years? [email or web address] Information not available 02/26/2023 Do You Use Protection Against STDs? Always Information not available 02/26/2023 What Is Your Relationship Status? [email or web address] Information not available 10/29/2016 Do You Use Your Seat Belt Or Car Seat Routinely? Yes Information not available 02/26/2023 Are You Sexually Active? No Information not available 02/26/2023 Smoke Alarm In Home Yes Information not available 02/26/2023 Do You Have Smoke And Carbon Monoxide Detectors In Your Home? Yes Information not available 02/26/2023 At What Age Did You Start Smoking Tobacco? 18 Information not available 02/26/2023 Are You Passively Exposed To Smoke? Yes Information no t available 02/26/2023 How Much Tobacco Do You Smoke? 1 PPD Information not available 02/26/2023 Do You Use Sunscreen Routinely? No Information not available 02/26/2023 Has Tobacco Cessation Counseling Been Provided? Yes Information not available 05/07/2023 On What Date Was Tobacco Cessation Counseling Provided? 03/02/2024 Information not available 03/02/2024 How Many Years Have You Smoked Tobacco? 44 Information not available 02/26/2023 Have You Used IV Drugs? No Information not available 02/26/2023 Do You Have Difficulty Walking Or Climbing Stairs? No Information not available 02/26/2023 Sex: Female Functional Status Question Answer Note LastModified by Organizat ion Details LastModified Time Do you use any illicit or recreational drugs? Yes Information not available 02/26/2023 Do you or have you ever used any other forms of tobacco or nicotine? No Information not available 02/26/2023 What is your level of alcohol consumption? None Information not available 02/26/2023 Do you or have you ever used smokeless tobacco? Never used smokeless tobacco Information not available 02/26/2023 Are you currently employed? No [email or web address] Information not available 10/29/2016 Do you have transportation difficulties? No Information not available 02/26/2023 Are you able to walk independently without assistance or assistive devices? [email or web address] Information not available 02/26/2023 Do you have difficulty doing errands alone? No Information not available 02/26/2023 Are you able to care for yourself independently? Yes [email or web address] Information not available 10/29/2016 Do you have difficulty dressing, bathing, grooming, or toileting? No Information not available 02/26/2023 What is your exercise level? None Information not available 02/26/2023 Mental Status Question Answer Note LastModified by Organizat ion Details LastModified Time Do you feel stressed (tense, restless, nervous, or anxious, or unable to sleep at night)? [id number] Information not available 02/26/2023 Do you have difficulty concentrating, remembering or making decisions? No Information no t available 02/26/2023 Family History Relationship Description Onset Age of this Age Resolved Age Notes LastModified by Organization Details LastModified Time Father No current problems or disability [email or web address] Not available 02/26 13:55:56 Father Diabetes mellitus [email or web address] Not available 2023 13:55:57 Mother No current problems or disability [email or web address] Not available 02/26 13:55:57 Unspecified Relation Anxiety disorder [email or web address] Not available 2023 13:55:57 Unspecified Relation Epilepsy [email or web address] Not available 02/26/19 13:55:57 Medical History Condition Response Diabetes Y Anxiety Disorder Y Heart Problems Y Muscle, Joint, or Bone Problems Y Obesity Y Hyperlipidemia Y Kidney or Bladder Problems Y Thyroid Problems Y Hypothyroidism Y Depression Y GI Problems Y Constipation Y Hypercholesterolemia Y Heart Disease Y Neuropathy Y Hypertension Y Gynecological History Statement/Question Response Abnormal Pap N Date of Last Mammogram Flow Light Date of LMP 02/12/2004 STIs/STDs N Colposcopy 02/23/2004 HPV Vaccine N Duration of Flow (days) 0 Most Recent Mammogram Current Control Method Hysterectom y Age at Menarche 15 Age at First Child 32 If Post Menopausal, Age at Menopause Date of Last Colonoscopy Frequency of Cycle (Q days) 0 Most Recent Bone Density Sexually Active? N Menses Monthly N LMP Approximate Hormone Replacement Therapy N Obstetrics History GPAL:G 0 P 0 0 0 0 Immunizations Vaccine Type Date Status Note Provider Nam e and Address Organization Details Recorded Time Influenza, split virus, quadrivalent, preservative 7 completed Not Available [facility] 02/28/2019 03:54:44 Pneumococcal conjugate PCV 13 7 completed Not Available [facility] 02/28/2019 03:54:53 Influenza, split virus, trivalent, preservative 4 completed Ivonne Jones, CLIENT SUPPORT ANALYST [address], [place], [address], [place] - [facility] 11/29/2023 13:27:24 Influenza, split virus, quadrivalent, preservative 8 completed Not Available [facility] 02/28/2019 03:55:20 Influenza, split virus, quadrivalent, preservative 9 completed Cara Andres null, [place] - [facility] 03/26/2023 10:50:48 Influenza, split virus, trivalent, PF 6 completed Caraivette Campos null, [place] - [facility] 03/26/2023 10:50:48 Td (adult), 2 Lf tetanus toxoid, preservative free, adsorbed 7 completed Cara Andres null, [place] - [facility] 03/26/2023 10:50:48 Hep B, adult 5 completed Cara Andres null, [place] - [facility] 03/26/2023 10:50:48 Hep B, adult 4 completed Cara Andres null, [place] - [facility] 03/26/2023 10:50:48 Hep B, adult 4 completed Cara Andres null, [place] - [facility] 03/26/2023 10:50:48 Influenza, split virus, quadrivalent, PF 0 completed Cara Andres null, [place] - [facility] 03/26/2023 10:50:48 Influenza, split virus, quadrivalent, PF 3 completed Cara Andres null, [place] - [facility] 03/26/2023 10:50:49 Influenza, split virus, quadrivalent, PF 2 completed YVONNE Mayes - [facility] 03/26/2023 10:50:49 Past Encounters Encounter ID Performer Location Encounter Start Date Encounter Closed Date Diagnosis/Indication Diagnosis SNOMED-CT Code Diagnosis ICD10 Code Diagnosis IMO Codes Diagnosis Note [id number] Anne Mott[address] [address] 11/23/2015 09:25:12 11/23/2015 13:25:24 Diabetes mellitus 47376836 E11.9 Acquired hypothyroidism 146191090 E03.9 Vitamin D deficiency 347 30598 E55.9 History of cardiovascular disease 947962038 Z86.79 History of hypertension 734232362 Z86.79 Neuropathy due to diabetes mellitus 860218889 E11.40 Hypothyroidism 25531241 E03.9 Hyperlipidemia 16229658 E78.5 [id number] Anne Mott[address] [place] [address] 12/27/2015 10:43:37 12/27/2015 16:15:20 Anxiety 70824135 F41.9 Acquired hypothyroidism 924306419 E03.9 [id number] Anne Mott [address] [place] [address] 01/26/2016 11:16:47 01/26/2016 13:02:03 Neuropathy due to diabetes mellitus 849663430 E11.40 Renewal of prescription 614322132 Z76.0 Disorder of bone 4739642 3 M89.9 Anxiety 87952312 F41.9 Acquired hypothyroidism 614362275 E03.9 [id number] Anne Mott [address] [place] [address] 02/15/2016 16:20:52 02/15/2016 16:55:09 Candidiasis of skin 20940453 B37.2 [id number] Anne Mott[address] [place] [address] 02/27/2016 13:27:14 02/27/2016 14:33:44 Anxiety 40070679 F41.9 Type 2 jonathon betes mellitus 79487737 E11.9 Acquired hypothyroidism 976375179 E03.9 Candidiasis 19409025 B37 .9 under breast and vulvo perineal area is much better than last visit [id number] Annearturo Mott[address] [place] [address] 03/29/2016 08:04:47 03/29/2016 09:47:03 Type 2 diabetes mellitus 82129349 E11.9 Hypothyroidism 26100350 E03.9 Neuropathy due to diabetes mellitus 422356796 E11.40 History of hypertension 817457407 Z86.79 Hyperlipidemia 01179533 E78.5 Anxiety 70306743 F41.9 Renewal of prescription 689015607 Z76.0 [id number] Annearturo Mott[address] [place] [address] 04/19/2016 09:22:42 04/19/2016 11:19:36 Hypokalemia 59271631 E87.6 Insomnia 632075296 G47.0 0 [id number] Anne Mott[address] [place] [address] 04/26/2016 12:30:47 04/26/2016 13:50:41 Renewal of prescription 360797632 Z76.0 Anxiety 30704186 F41.9 Decreased renal function 97733062 R94.4 chronic, referral has been made to nephrology Hypothyroidism 25290930 E03.9 Type 2 jonathon betes mellitus 85477643 E11.9 History of cardiovascular disease 962736129 Z86.79 [id number] Anne Mott[address] [place] [address] 05/28/2016 12:40:29 05/28/2016 18:20:31 Anxiety 21321814 F41.9 [id number] Annearturo Mott[address] [place] [address] 07/26/2016 16:00:07 07/26/2016 17:15:20 Anxiety 69052227 F41.9 Body mass index 30+ - obesity 026764387 Z68.33 Nicotine dependence 5629 4008 F17.200 Neuropathy due to diabetes mellitus 197020580 E11.40 Open wound 848125229 S21 .90XD small opening noted wher drain tube was at bottom of sternotomy scar which is well healed [id number] Anne Mott [address] [place] [address] 08/28/2016 10:12:46 08/28/2016 10:49:11 Anxiety 62593112 F41.9 Insomnia 955143647 G47.0 0 Essential hypertension 82546297 I10 Hypothyroidism 00739192 E03.9 Hyperlipidemia 48935655 E78.5 Colostomy present 470139 009 Z93.3 Type 2 jonathon betes mellitus 56147040 E11.9 [id number] Anne Mott[address] [place] [address] 09/26/2016 15:41:14 09/26/2016 16:27:06 Anxiety 24432081 F41.9 Insomnia 746668337 G47.0 0 [id number] Anne Mott [address] [place] [address] 10/29/2016 10:15:48 10/29/2016 13:51:37 Insomnia 523662194 G47.00 History of hypertension 687816512 Z86.79 Anxiety 64317894 F41.9 History of cardiovascular disease 731566387 Z86.79 Neuropathy due to diabetes mellitus 438989247 E11.40 Colostomy present 005514 009 Z93.3 Hypothyroidism 99802085 E03.9 Type 2 jonathon betes mellitus 56393046 E11.9 Hyperlipidemia 28177315 E78.5 1643872 Anne Mott[address] [place] [address] 11/26/2016 14:15:45 11/26/2016 15:26:09 Renewal of prescription 339511755 Z76.0 History of cardiovascular disease 563479551 Z86.79 History of hypertension 569938095 Z86.79 Type 2 jonathon betes mellitus 03202254 E11.9 Anxiety 51019508 F41.9 [id number] Anne Mott [address] [place] [address] 4 12/27/2016 13:29:34 12/27/2016 14:15:59 Renewal of prescription 709812344 Z76.0 Insomnia 017354864 G47.0 0 Active or passive immunization 639572385 Z23 [id number] Anne Mott [address] [place] [address] 4 01/22/2017 14:06:34 01/22/2017 15:30:08 Renewal of prescription 057850208 Z76.0 Anxiety 66868956 F41.9 Body mass index 30+ - obesity 502801014 Z68.34 [id number] Anne Mott [address] [place] [address] 4 02/28/2017 13:01:09 02/28/2017 13:53:23 Renewal of prescription 523303782 Z76.0 Anxiety 16975676 F41.9 Body mass index 30+ - obesity 899043654 Z68.34 [id number] Anne Mott [address] [place] [address] 4 04/25/2017 10:46:10 04/25/2017 12:02:47 Neuropathy due to diabetes mellitus 572095769 E13.40 Renewal of prescription 091998180 Z76.0 Anxiety 18093296 F41.9 History of cardiovascular disease 266356781 Z86.79 Hypothyroidism 38613013 E03.9 [id number] Vincent Amin MD [address] [place] [address] 05/23/2017 14:14:23 05/23/2017 15:31:00 Diabetes mellitus 62738870 E11.9 Candidiasis 75240607 B37 .9 Colostomy present 820998 009 Z93.3 Type 2 jonathon betes mellitus 81554981 E11.37X1 Anxiety 63645841 F41.9 Hyperlipidemia 81494225 E78.5 [id number] Anne Mott [address] [place] [address] 07/11/2017 10:03:27 07/11/2017 11:41:31 Neuropathy due to diabetes mellitus 443630228 E13.40 Insomnia 515630171 G47.0 0 Body mass index 30+ - obesity 218445495 Z68.34 [id number] Annearturo Mott [address] [place] [address] 07/24/2017 12:46:10 07/24/2017 15:28:15 Anxiety 07797896 F41.9 Renewal of prescription 759364359 Z76.0 Candidiasis of skin 4988 3006 B37.2 [id number] Anne Tiera [address] [place] [address] 08/22/2017 09:40:55 08/22/2017 10:52:06 Anxiety 14807608 F41.9 Type 2 jonathon betes mellitus 08137478 E11.9 Hypothyroidism 70555259 E03.9 History of hypertension 755109532 Z86.79 History of cardiovascular disease 306215062 Z86.79 Fatigue 10174552 R53.83 Viral screening 71814612 4 Z11.59 Screening for malignant neoplasm of colon 167129588 Z12.11 Hyperlipidemia 02046345 E78.5 Vitamin D deficiency 347 21619 E55.9 Anemia 321712709 D64.9 Pain of mu ltiple joints 15591347 M25.50 [id number] Anne[address] Mott[address] [place] [address] 09/03/2017 12:38:43 09/03/2017 13:52:03 Methicillin resistant Staphylococcus aureus infection 727344589 A49.02 Chronic confusion 428866 005 R41.0 [id number] Annearturo Mott [address] [place] [address] 09/23/2017 13:13:01 09/23/2017 14:08:42 Anxiety 98369860 F41.9 History of hypertension 181687024 Z86.79 [id number] Betsey Cuellar [address] [place] [address] 10/24/2017 15:22:59 10/24/2017 17:13:34 Anxiety 54909265 F41.9 Benign hypertension 1072 5009 I10 [id number] Anne Mott [address] [place] [address] 11/20/2017 13:42:52 11/20/2017 15:14:18 Anxiety 82418254 F41.9 Neuropathy due to diabetes mellitus 336133624 E13.40 Insomnia 916748464 G47.0 0 Administra tion of influenza vaccine 94335437 Z23 Type 2 jonathon betes mellitus 04106389 E11.9 History of cardiovascular disease 860961037 Z86.79 [id number] Vincent Amin MD [address] [place] [address] 12/19/2017 15:49:29 12/19/2017 18:10:12 Anxiety 57323494 F41.9 Candidiasis of skin 4988 3006 B37.2 Hordeolum externum of upper eyelid of right eye 3539319862 32363 H00.011 Candidiasis 36502988 B37 .9 History of hypertension 637653036 Z86.79 Neuropathy due to diabetes mellitus 692319151 E11.40 Hyperlipidemia 93574558 E78.5 Pancreatitis 60154163 K8 5.90 External hordeolum 98136 08 H00.019 Urostomy present 4841245 04 Z93.6 [id number] Betsey Cuellar [address] [facility] [place] [address] 02/20/2018 08:48:36 02/20/2018 09:19:38 Anxiety 94948114 F41.9 Neuropathy due to diabetes mellitus 302236853 E11.40 Benign hypertension 1072 5009 I10 Insomnia 117832658 G47.0 0 Hypothyroidism 43165721 E03.9 Fecal occu lt blood: positive 527236864 R19.5 [id number] Ivonne Jones APRN [address] [address] 02/26/2023 13:49:28 02/26/2023 15:29:07 Anxiety 16431110 F41.9 discussed with pt and daughter that due to her pot smoking daily and she takes 4 controlled substance, at this time I would not take those over. discussed if she would stop smoking pot and give a clean uds I could do her xanax and gabapentin but would not write norco and ambien. Depressive disorder 8398 9007 F32.A History of cardiovascular disease 834515112 Z86.79 History of hypertension 947420576 Z86.79 Hypothyroidism 58656400 E03.9 Insomnia 845853073 G47.0 0 Neoplasm o f urinary bladder 323037165 D49.4 Neuropathy due to diabetes mellitus 393910544 E11.40 Type 2 jonathon betes mellitus 71779049 E11.9 pt interested in omnipod pump. Urostomy present 8036103 04 Z93.6 5804821 Ivonne Jones [address] [address] 03/26/2023 10:33:57 03/26/2023 11:48:39 Anxiety 84745389 F41.9 discussed with pt and daughter due to her smoking pot she needs to work on stop smoking. will send xanax and take it over. Depressive disorder 9458 0587 F32.A will increase depression med and send sleep aid. Type 2 jonathon betes mellitus 23806561 E11.9 Long-term current use of benzodiazepine 4113584155 3227567 Z79.899 Insomnia 564113935 G47.0 0 [id number] Ivonne Jones [address] [address] 04/09/2023 10:59:34 04/09/2023 11:37:43 Insomnia 707174778 G47.00 discussed risk with pt Anxiety 63166455 F41.9 discussed with pt and daughter due to her smoking pot she needs to work on stop smoking. will send xanax and take it over. [id number] Ivonne Jones [address] [address] 04/15/2023 10:51:49 04/15/2023 12:57:47 Type 2 diabetes mellitus 58767025 E11.9 omnipod pod will not connect to pump notified omnipod customer service [id number] Ivonne Jones [address] [address] 05/07/2023 10:38:41 05/07/2023 11:06:32 Anxiety 78667664 F41.9 discussed with pt and daughter due to her smoking pot she needs to work on stop smoking. will send xanax and take it over.pt states she has continued to not smoke pot. Type 2 jonathon betes mellitus 90534821 E11.9 call omnipod for replacemen t pump- number given to pt [id number] Ivonne Jones [address] [address] 05/10/2023 10:37:59 05/10/2023 11:39:12 Type 2 diabetes mellitus 47103346 E11.9 omnipod set up and pt verbalizes understand ing [id number] Ivonne Jones [address] [address] 05/13/2023 10:53:27 05/13/2023 11:57:27 Type 2 diabetes mellitus 66742075 E11.9 dexcom set up and pt verbalizes understand ing [id number] Ivonne Jones [address] [address] 05/31/2023 08:50:06 05/31/2023 09:49:38 Type 2 diabetes mellitus 06977901 E11.9 dexcom set up and pt verbalizes understand ing Anxiety 42890017 F41.9 discussed with pt and daughter due to her smoking pot she needs to work on stop smoking. will send xanax and take it over.pt states she has continued to not smoke pot. Vitamin D deficiency 347 70171 E55.9 [id number] Ivonne Jones [address] [address] 06/17/2023 09:04:34 06/17/2023 09:45:38 Acute confusion 204645380 R41.0 Chronic ki dney disease 239037789 N18.9 Acute urin glenroy tract infection 061646472 N39.0 if symptoms worsen or no improvemen t return or go to ed [id number] Ivonne Jones [address] [address] 06/25/2023 10:50:22 06/25/2023 11:21:34 Depressive disorder 33269489 F32.A will increase depression med and send sleep aid. Anxiety 45596502 F41.9 discussed with pt and daughter due to her smoking pot she needs to work on stop smoking. will send xanax and take it over.pt states she has continued to not smoke pot. Type 2 jonathon betes mellitus 10849060 E11.9 [id number] Daysicrystalantonio Robert [address] [address] 10/17/2023 14:02:27 10/17/2023 14:34:54 Anxiety 58994672 F41.9 Pt compliant with plan of careKasper reviewedme dication compliance discussedL ast uds:10/17/23 Control substance agreement on file Long-term current use of benzodiazepine 2100878155 2634031 Z79.899 discussed uds results and pt states she will stop smoking pot. discussed next visit if uds not neg will start adjusting meds Type 2 jonathon betes mellitus 01958205 E11.9 discussed the importance to check glucosewri te it down in log and bring to next appointmen tdiscussed importance of taking insulin and taking care of self. [id number] Daysivioleta Jones CLIENT SUPPORT ANALYST [address] [address] 11/15/2023 09:01:36 11/15/2023 09:58:44 Anxiety 56792429 F41.9 Pt compliant with plan of careKasper reviewedme dication compliance discussedL ast uds:10/17/23 Control substance agreement on filewill give 7 extra tabs to take at noon if needed on days where her anxiety is increased Depressive disorder 3548 9007 F32.A History of hypertension 892162104 Z86.79 History of cardiovascular disease 847060430 Z86.79 Hyperlipidemia 59943268 E78.5 Hypothyroidism 93227654 E03.9 Type 2 jonathon betes mellitus 27399550 E11.9 discussed the importance to check glucosewri te it down in log and bring to next appointmen tdiscussed importance of taking insulin and taking care of self. Neuropathy due to diabetes mellitus 469085892 E11.40 Urostomy present 9292026 04 Z93.6 Candidiasis 10573206 B37 .9 keep area clean and dry apply cream [id number] Ivonne Jones [address] [address] 11/29/2023 10:40:35 11/29/2023 11:26:24 Influenza vaccine needed 7167834125 106 Z23 Pain of ri ght upper arm 8979385108 69326 M79.621 Type 2 jonathon betes mellitus 26341119 E11.9 discussed the importance to check glucosewri te it down in log and bring to next appointmen tdiscussed importance of taking insulin and taking care of self. Pain of ri ght shoulder joint 6349567283 2531438 M25.262 [id number] [facility] [address] [address] 12/24/2023 10:36:27 12/24/2023 11:33:59 Renewal of prescription 279044425 Z76.0 Depressive disorder 4328 4947 F32.A Type 2 jonathon betes mellitus 57737921 E11.9 discussed the importance to check glucosewri te it down in log and bring to next appointmen tdiscussed importance of taking insulin and taking care of self. Vitamin D deficiency 347 30915 E55.9 History of cardiovascular disease 136047359 Z86.79 Restless l egs syndrome 90185776 G25.81 Urostomy present 0713372 04 Z93.6 7712968 Ivonne Jones [address] [address] 01/21/2024 14:10:39 01/21/2024 15:59:35 Long-term current use of benzodiazepine 5828196693 0862397 Z79.899 discussed uds results. again discussed the importance of not smoking pot with meds. pt states it helps with anxiety. will increase meds discussed the concerns of her continuing to smoke pot and her contract Anxiety 06080272 F41.9 Pt compliant with plan of Marlena reviewedme dication compliance discussedL ast uds:Control substance agreement on filewill give 7 extra tabs to take at noon if needed on days where her anxiety is increased [id number] Ivonne Jones APRN [address] [address] 02/13/2024 13:49:38 02/13/2024 15:05:04 Acute exacerbation of chronic obstructive pulmonary disease 481503700 J44.1 continue steroidsbr eathing txif symptoms worsen or do not improve return Candidiasis of skin 4988 3006 B37.2 if worsen returnclea n skin well apply powder and then vaseline, then gauze [id number] Ivonne Jones [address] [address] 03/02/2024 14:49:29 03/02/2024 16:01:58 Candidiasis of mouth 27534308 B37.0 Memory impairment 226876 006 R41.3 [id number] Ivonne Jones [address] [address] 03/26/2024 14:43:32 03/26/2024 15:44:32 Pressure injury stage I 2447723416 L89.91 dressing applied to buttocks- wound care referral sent Congestive heart failure 37642310 I50.9 History of cardiovascular disease 340666637 Z86.79 call cardiology mercedes if plavix is not in home meds- discussed the need to have plavix unless told by cardiology not to be on Pneumonia 263046615 J18. 9 continue treatment [id number] Ivonne Jones APRN [address] [address] 04/14/2024 11:10:09 04/14/2024 12:13:43 Chronic obstructive pulmonary disease 79705170 J44.9 Urostomy present 7985863 04 Z93.6 Abnormal weight gain 161 367305 R63.5 Dyspnea 164861069 R06.00 pt refuses to go to ed. discussed risk of not going pt still declines pt states she is not going to the [facility] [id number] Ivonne Jones [address] [address] 05/11/2024 13:31:52 05/11/2024 13:57:29 Anxiety 32580682 F41.9 Pt compliant with plan of careKasper reviewedme dication compliance discussedL ast uds:Control substance agreement on filewill give 7 extra tabs to take at noon if needed on days where her anxiety is increased Unexplaine d weight loss 633676543 R63.4 History of cardiovascular disease 565813062 Z86.79 History of primary malignant neoplasm of urinary bladder 163318768 Z85.51 Screening for malignant neoplasm of breast 742651841 Z12.39 [id number] Daysivioleta Jones [address] [address] 06/18/2024 13:58:48 06/18/2024 14:40:44 Candidiasis of skin 15235645 B37.2 826542 if worsen returnclea n skin well apply powder and then vaseline, then gauze Pruritus of vagina 68832 003 N89.8 000264 [id number] Ivonne Jones [address] [address] 08/11/2024 13:37:47 08/11/2024 14:45:46 Anxiety 13273062 F41.9 Pt compliant with plan of careKasper reviewedme dication compliance discussedL ast uds:08/12/19 25Control substance agreement on fileuds results discussed- discussed pp control substance policy Type 2 jonathon betes mellitus 94338548 E11.9 discussed the importance to check glucosewri te it down in log and bring to next appointmen t Normal weight 24903413 Z 68.24 7201663292 24.8 Family conflict 34906125 Z63.8 70697 Chronic constipation 236 974137 K59.09 322719 Health Concerns Section Related Observation LastModified by Organization Detai ls LastModified Time None Recorded Concern Status LastModified by Organization Details LastModified Time None Recorded Advance Directives Directive N: Payers Insurance Date Sequence Insurance Name Policy Number Policy Garnica Covered Member ID Garnica Member ID Guarantor Name 11/11/2024 2 [place] [facility] - FFS/TRADITIO NAL Laxmi Cronin [id number] Laxmi Cronin 08/11/2024 2 MEDICAID-[facility] - FFS/TRADITIO NAL Laxmi Cronin [id number] Laxmi Cronin 04/02/2023 SLIDING FEE SCHEDULE - DISCOUNT Laxmi Cronin 11/11/2024 1 [employer] - GOLD PLUS (MEDICARE REPLACEMENT/ ADVANTAGE - HMO) Laxmi Cronin [id number] Laxmi Cronin 08/11/2024 2 [place] Laxmi Cronin [id number] Laxmi Cronin 11/12/2024 [employer] [place]ATIONAL - [place] - [facility] (MEDICARE) Laxmi Cronin [id number] Laxmi Cronin Notes Date Note Type Note Provider Name and Address Organization Details Recorded Time 03/26/2024 text/html Emergency Depart ment Follow-Up RecordReported by PatientEmergency Room Follow-Up RecordFor discharge information, patient reportsname of hospital/urgent care patient was seen: ([facility] and ),patient presented to hospital/urgent care on or around: actual date ____,patient presented to hospital for treatment of: (pneumonia, pe),treatment received by hospital/urgent care: (admitted, abx, lovenox),patient's condition has: improved, andhospital records available at the time of this visit: yes.ROS as noted in the HPI 63 yr old female presents for a hospital follow up. She has had 2 recent hospitalizations, one at for sepsis related to kidneys/urinary tract and the other at [facility] for pneumonia and pulmonary embolus. Ivonne JonesCHONG [address], [place], [address], [place] - [facility] 03/26/2024 15:49:08 04/14/2024 text/html ROS as noted in the HPI 63 yr old female presents with raspy cough and short of breath. She has gained around 15 pounds in the last few weeks. Ivonne Jones CHONG [address], [place], [address], [place] - [facility] 04/14/2024 12:06:30 05/11/2024 text/html 63 year old female who presents to the office today for a follow up on anxiety, needs alprazolam refilled. pt states meds help with her anxiety.pt has lost 15lbs since last visit on 04-14-24,declines colonoscopy, will do mamm.labs,urology consult, pt states she just is not hungry or feel like eating. Ivonne CummingsCHONG [address]th [address], [place], [address], [facility] - [facility] 05/11/2024 14:10:36 06/18/2024 text/html ROS as noted in the HPI 64 yr old female presents for vaginal discharge and itching for over a week. She is red under abdomen, breast and groin. Ivonne JonesCHONG [address], [place], [address], [facility] - [facility] 06/18/2024 14:48:28 08/11/2024 text/html 64 year old female who presents to the office today for a follow up on anxiety and neuropathy. pt states anxiety is doing well on meds. pt states she is living with a friend due to family issues. pt states she is not able to care for selfneeds prescription for stool softenerpt states she is losing wt due to not being able to chew food due to bad teeth Ivonne CummingsCOHNG roth [address], [place], [address], [place] - [facility] 08/11/2024 16:56:42 OBGyn Episode No OBEpisode recorded.
--- OUTSIDE RECORDS SUMMARY | 2024-11-15 20:01 | XMS_ITS | Clinical Summary ---
[facility] Address [address] [place] [address] Care Team Providers Care Manual Arts Teacher Name Role Phone Cosme Davis MD Primary [...] 2012 ZOSTER VACCINE (1 of 2) 2012 INFLUENZA VACCINE 09/11/2024 Insurance MEDICARE A & B Care Teams Manual Arts Teacher Relationship Specialty Start Date End Date Cosme Davis MD [address] [facility] [address] ATTN: [place] [address] PCP - General Emergency Medicine 06/04/18
--- OUTSIDE RECORDS SUMMARY | 2024-11-15 20:01 | XMS_ITS | Encounter Summary ---
Author Organization [employer] ([place], [place], [place], [place]) Address [address] [place] [address] Care Team Providers Care Soil Field Technician Name Role Phone Unavailable Primary Care Provider Unavailabl e Encounter Details Date Type Department Care Team (Late st Contact Info) Description 03/24/2018 Transcribed Document [facility] [place] [address] [place] [address] ProviderZion MD [address] [place] [address] Social History Tobacco Use Types [...] - Historical ProviderMD - 03/24/2018 3:32 PM ROBOTICS APPLICATION ENGINEER Event Note Entered On: 03/24/2018 15:32 EST Performed On: 03/24/2018 15:32 EST by Demetri Arrington Rn Event Note Event Date/Time : 03/24/2018 15:32 EST Description of Event : patient insisting on going down to smoke. smoking form signed Demetri Arrington Rn - 03/24/2018 15:32 EST Electronically signed by Jorge Alberto [facility] Conversion Farm Loan Representative Bartolomener at 05/29/2022 8:38 PM CDT documented in this encounter Plan of Treatment Not on file documented as of this encounter Visit Diagnoses Not on filedocumented in this encounter
--- OUTSIDE RECORDS SUMMARY | 2024-11-15 20:01 | XMS_ITS | Encounter Summary ---
Author Organization [employer] ([place], [place], [place], [place]) Address [address] [place] [address] Care Team Providers Care R Programmer Name Role Phone Unavailable Primary Care Provider Unavailabl e Encounter Details Date Type Department Care Team (Late st Contact Info) Description 03/29/2018 Transcribed Document [facility] [place] [address] [place] [address] ProviderZion MD [address] [place] [address] Social History Tobacco Use Types Packs/Day Years Used Date Smoking Tobacco: Never Assessed Comments Unknown Sex and Gender Information Value Date Recorded Sex Assigned at Not on file Legal Sex Female 4:39 PM CDT Gender Identity Not on file Sexual Orientation Not on file documented as of this encounter Miscellaneous Notes * [employer] Conversion Note - Historical ProviderMD - 03/29/2018 1:22 PM HERBARIUM CURATOR Nursing Discharge Summary Entered On: 03/29/2018 13:22 EST Performed On: 03/29/2018 13:22 EST by Odalys Bush Rn-Recovery Specialist Discharge Documentation Discharge, Comment : Report: Joshua [phone] Discharge Summary Sent to : Joshua [phone] Odalys Bush Rn-Recovery Specialist - 03/29/2018 13:22 EST Electronically signed by Jorge Alberto [facility] Conversion Farm Management Supervisor Cerner at 05/29/2022 8:31 PM CDT documented in this encounter Plan of Treatment Not on file documented as of this encounter Visit Diagnoses Not on filedocumented in this encounter
--- OUTSIDE RECORDS SUMMARY | 2024-11-15 20:01 | XMS_ITS | Encounter Summary ---
Author Organization [employer] ([place], [place], [place], [place]) Address [address] [place] [address] Care Team Providers Care Office System Analyst Name Role Phone Unavailable Primary Care Provider Unavailabl e Encounter Details Date Type Department Care Team (Late st Contact Info) Description 03/28/2018 Transcribed Document [facility] [place] Family Medicine [facility] [place] [address] ProviderZion MD [address] [place] [address] Social History Tobacco Use Types Packs/Day Years Used Date Smoking Tobacco: Never Assessed Comments Unknown Sex and Gender Information Value Date Recorded Sex Assigned at Not on file Legal Sex Female 4:39 PM CDT Gender Identity Not on file Sexual Orientation Not on file documented as of this encounter Miscellaneous Notes * Cerner Conversion Note - Zion ProviderMD - 03/28/2018 12:56 PM RN ADVICE Patient: ETHAN CRONIN Age: 57 years Sex: Female : 1960 Associated Diagnoses: None Author: CARROLL HIGH MD-INF Basic Information CC: Sepsis bacteremia 03/19/18 4/4 bottles for Group b strep ([facility]), mitral prosthetic valve endocarditis History of Present Illness 57-year-old white female with history of bladder cancer, atrial flutter, pacemaker placement 2016, hypertension, DM2, COPD, pancreatitis, who recently had blood cultures obtained at [facility] on 03/19/18 for fever which were positive in 4 out of 4 bottles for group B Streptococcus. Patient was to start IV antibiotics but was found to have bradycardia and was admitted to [facility] on 03/23/17. I was consulted on 03/25/17. The patient had been started on vancomycin and Rocephin. Urine culture obtained at [facility] was positive for multiple bacteria consistent with [...] cefTRIAXone (Rocephin) - 2 Gram, IV Piggyback, [id number], infuse over 30 Minute(s), Routine Anticoagulant heparin [...] Normal strength, No tenderness. Integumentary: Warm, Dry, [place], No pallor, No rash, Left chest wall [...] 23) Troponin <0.015 (MAR 23) , ACC: [id number] ORDER: Culture Blood DATE: 03/23/2018 17:49 SOURCE: Blood SITE: Reports Pre 03/27/2018 23:01 No growth at 4 days. Pre 03/26/2018 23:01 No growth at 3 days. Pre 03/25/2018 23:01 No growth at 2 days. Pre 03/24/2018 23:02 No growth at 1 day. Pre 03/24/2018 16:03 Culture less than 24 Hrs old == ACC: [id number] ORDER: Culture Blood DATE: 03/23/2018 17:49 SOURCE: [...] of 4 blood culture bottles positive at [facility] (spoke to Maurice Spencer, at [facility]). BROCK consistent with mitral valve endocarditis, [...] Dr. Perez's service, cardiology, and Dr. Alan.. associate program manager: Please arrange for outpatient IV antibiotics with Rocephin 2 g IV every 12 hours until 05/04/18. Follow CBC, CMP, CRP weekly while on IV antibiotics. Fax orders to [phone], and call [phone] with final arrangements. Arrange for follow-up with me in 2 weeks post discharge. documented in this encounter Plan of Treatment Not on file documented as of this encounter Visit Diagnoses Not on filedocumented in this encounter
--- OUTSIDE RECORDS SUMMARY | 2024-11-15 20:01 | XMS_ITS | Encounter Summary ---
Author Organization [employer] ([place], [place], [place], [place]) Address [address] [place] [address] Care Team Providers Care Bench Mechanic Name Role Phone Unavailable Primary Care Provider Unavailabl e Encounter Details Date Type Department Care Team (Late st Contact Info) Description 03/27/2018 Transcribed Document [facility] Family Medicine [facility] [place] [address] ProviderZion MD [address] [place] [id number] Social History Tobacco Use Types Packs/Day Years Used Date Smoking Tobacco: Never Assessed Comments Unknown Sex and Gender Information Value Date Recorded Sex Assigned at Not on file Legal Sex Female 4:39 PM CDT Gender Identity Not on file Sexual Orientation Not on file documented as of this encounter Miscellaneous Notes * Cerner Conversion Note - Zion ProviderMD - 03/27/2018 9:17 AM RUG WASHER Patient: ETHAN CRONIN Age: 57 years Sex: Female : 1960 Associated Diagnoses: None Author: CARROLL HIGH MD-INF Basic Information CC: Sepsis bacteremia 03/19/18 4/4 bottles for Group b strep ([facility]), mitral prosthetic valve endocarditis History of Present Illness 57-year-old white female with history of bladder cancer, atrial flutter, pacemaker placement 2016, hypertension, DM2, COPD, pancreatitis, who recently had blood cultures obtained at [facility] on 03/19/18 for fever which were positive in 4 out of 4 bottles for group B Streptococcus. Patient was to start IV antibiotics but was found to have bradycardia and was admitted to [facility] on 03/23/17. I was consulted on 03/25/17. The patient had been started on vancomycin and Rocephin. Urine culture obtained at [facility] was positive for multiple bacteria consistent with [...] cefTRIAXone (Rocephin) - 2 Gram, IV Piggyback, [id number], infuse over 30 Minute(s), Routine Anticoagulant heparin [...] Normal strength, No tenderness. Integumentary: Warm, Dry, [place], No pallor, No rash, Left chest wall [...] 10) Troponin <0.015 (FEB 10) , ACC: [id number] ORDER: Culture Blood DATE: 03/23/2018 17:49 SOURCE: Blood SITE: Reports Pre 03/26/2018 23:01 No growth at 3 days. Pre 03/25/2018 23:01 No growth at 2 days. Pre 03/24/2018 23:02 No growth at 1 day. Pre 03/24/2018 16:03 Culture less than 24 Hrs old == ACC: [id number] ORDER: Culture Blood DATE: 03/23/2018 17:49 SOURCE: [...] of 4 blood culture bottles positive at [facility] (spoke to Maurice Spencer, at [facility]). BROCK consistent with mitral valve endocarditis, [...] and discussed with Dr. Perez's service, cardiology. event manager: Please arrange for outpatient IV antibiotics with Rocephin 2 g IV every 12 hours until 05/04/18. Follow CBC, CMP, CRP weekly while on IV antibiotics. Fax orders to [phone], and call [phone] with final arrangements. Arrange for follow-up with me in 2 weeks post discharge. documented in this encounter Plan of Treatment Not on file documented as of this encounter Visit Diagnoses Not on filedocumented in this encounter
--- OUTSIDE RECORDS SUMMARY | 2024-11-15 20:01 | XMS_ITS | Encounter Summary ---
Author Organization Healthcare Address [address] [place] [address] Care Team Providers Care Rn Bariatric Name Role Phone Cosme Davis MD Primary Care Provider [phone] Encounter Details Date Type Department Care Team (Latest Contact Info) Description 10/12/2024 Travel Social History Tobacco Use Types Packs/Day [...] and Family Not on file 10/13/2024 Attends [employer] Not on file 10/13 Active Member [...] any time in the past 12 m [facility], were you homeless or living in a longterm (including now)? No 10/13/2024 [facility] Utilities Answer Date Recorded In the [...] Info) Description 01/21/2025 1:30 PM EST Appointment [facility] [address] [facility] 5th Floor [address] [place] [address] 01/21/2025 2:00 PM EST Appointment [facility] [address] [facility] 5[address] [place] [address] 01/21/2025 2:40 PM EST Office Visit [facility] [address] [place] [address] Jose Rosario MD [address] [facility] [address] [place] [address] documented as of this encounter Visit Diagnoses Not on filedocumented in this encounter Additional Health Concerns Assessment Noted Time A Body Mass Index follow-up plan has been documented for the patient 10/30/2024 1:27 PM EDT documented as of this encounter Care Teams Rn Bariatric Relationship Specialty Start Date End Date Cosme Davis MD [address] [place] [address] PCP - General 06/24/20 documented as of this encounter
--- OUTSIDE RECORDS SUMMARY | 2024-11-15 20:02 | XMS_ITS | Encounter Summary ---
Author Organization [employer] ([place], [place], [place], [place]) Address [address] [place] [address] Care Team Providers Care Theater Teacher Name Role Phone Unavailable Primary Care Provider Unavailabl e Encounter Details Date Type Department Care Team (Late st Contact Info) Description 03/27/2018 Transcribed Document [facility] Family Medicine [facility] [place] [address] ProviderZion MD [address] [place] [address] Social History Tobacco Use [...] - Historical ProviderMD - 03/27/2018 2:54 PM NETWORK PROGRAMMER Care Management Assessment/Plan Entered On: 03/27/2018 15:00 [...] dtr in agreement and referrlas made via [facility] to the following counties.... [place] [...] 14:54 EST Electronically signed by Jorge Alberto, [facility] Conversion Media Supervisor Cerner at 05/29/2022 8:28 PM CDT documented in this encounter Plan of Treatment Not on file documented as of this encounter Visit Diagnoses Not on filedocumented in this encounter
--- OUTSIDE RECORDS SUMMARY | 2024-11-15 20:02 | XMS_ITS | Encounter Summary ---
Author Organization [employer] ([place], [place], [place], [place]) Address [address] [place] [address] Care Team Providers Care Solar Photovoltaic Designer Name Role Phone Unavailable Primary Care Provider Unavailabl e Encounter Details Date Type Department Care Team (Late st Contact Info) Description 05/07/2018 Transcribed Document [facility] Family Medicine [facility] [place] [address] ProviderZion MD [address] [place] [address] Social History Tobacco Use Types Packs/Day [...] Zion ProviderMD - 05/07/2018 1:16 PM CDT [address] [place] [address] Patient Copy Patient Information: Name: ETHAN CRONIN Current Date: 05/07/2018 13:16:44 : 1960 Patient Address: [address] [place] [id number] Patient Attending Physician: AJAY MARCANO MD-CAR Primary Care Provider: SUJIT DAWKINS (REF)IFTIKHAR Primary Care Provider Discharge Diagnosis: Weight on Admission: 163 lb, 0 oz Comment: Follow-up Instructions: With: Address: When: AJAY MARCANO [address] [facility] [place] [phone] Business (1) Within 2 to 3 days [...] 11/25/2009 Document Revised: 07/05/2016 Document Reviewed: 07/30/2013 [employer] Patient Education ? 2017 [employer]. CIGARETTE SMOKING: The facts are clear, cigarette smoking will shorten your life. Smoking can cause many illnesses along the way. As a healthcare provider, we recommend that you stop smoking. Assistance with quitting is available by contacting 3-237-FISK-NOW. This is a free resource providing counseling, [...] Be sure to sign up for the [employer] patient portal, which gives you 03/09 access to your medical information ??? including these discharge instructions ??? using your computer, smartphone, or tablet. Just go to [employer] to get started. Questions? Call . [facility] would like to thank you for allowing us to assist you with your healthcare needs. GERTRUDE Mcconnell VERONICA GAY, (or security representative) have received the above patient education materials/instructions and have verbalized understanding: Patient Signature _ Date/Time Patient Farm Supervisor Signature (if needed) Date/Time Clinician/Hospital Farm Supervisor Signature (if needed) Date/Time documented in this encounter Plan of Treatment Not on file documented as of this encounter Visit Diagnoses Not on filedocumented in this encounter
--- OUTSIDE RECORDS SUMMARY | 2024-11-15 20:02 | XMS_ITS | Encounter Summary ---
Author Organization [employer] ([place], [place], [place], [place]) Address [address] [place] [address] Care Team Providers Care Residential Sales Name Role Phone Unavailable Primary Care Provider Unavailabl e Encounter Details Date Type Department Care Team (Late st Contact Info) Description 03/23/2018 Transcribed Document [facility] [place] [address] [place] [address] ProviderZion MD [address] [place] [address] Social History Tobacco Use Types [...] - Historical ProviderMD - 03/23/2018 5:16 PM BOX FINISHER Event Note Entered On: 03/23/2018 17:17 EST Performed On: 03/23/2018 17:16 EST by Demetri Arrington, Rn Event Note Event Date/Time : 03/23/2018 17:16 EST Description of Event : patient to rm # [id number] Kristen Nelson notified Demetri Arrington, Rn - 03/23/2018 17:16 EST Electronically signed by Jorge Alberto [facility] Conversion Sandblast Or Shotblast Equipment Tender Cerner at 05/29/2022 8:41 PM CDT documented in this encounter Plan of Treatment Not on file documented as of this encounter Visit Diagnoses Not on filedocumented in this encounter
--- OUTSIDE RECORDS SUMMARY | 2024-11-15 20:02 | XMS_ITS | Encounter Summary ---
Author Organization [employer] ([place], [place], [place], [place]) Address [address] [place] [address] Care Team Providers Care Carbon Furnace Operator Helper Name Role Phone Unavailable Primary Care Provider Unavailabl e Encounter Details Date Type Department Care Team (Late st Contact Info) Description 03/27/2018 Transcribed Document [facility] [place] [place] Family Medicine [facility] [place] [address] ProviderZion MD [facility] [place] [address] Social History Tobacco Use Types [...] - Historical ProviderMD - 03/27/2018 9:[address] JUSTICE Patient: ETHAN LOREDO Age: 57 Years Sex: [...] mitral regurgitation. Electronically signed by Jorge Alberto [facility] Conversion Surgery Nurse Cerner at 05/29/2022 8:29 PM CDT documented in this encounter Plan of Treatment Not on file documented as of this encounter Visit Diagnoses Not on filedocumented in this encounter
--- OUTSIDE RECORDS SUMMARY | 2024-11-15 20:02 | XMS_ITS | Encounter Summary ---
Author Organization [employer] ([place], [place], [place], [place]) Address [address] [place] [address] Care Team Providers Care Puttier Name Role Phone Unavailable Primary Care Provider Unavailabl e Encounter Details Date Type Department Care Team (Late st Contact Info) Description 03/29/2018 Transcribed Document [facility] [address] [place] [address] ProviderZion MD [address] [place] [address] Social History Tobacco Use Types [...] - Zion ProviderMD - 03/29/2018 11:59 PM HEATING ELEMENT REPAIRER Patient: ETHAN CRONIN Age: 57 years Sex: [...] At Bedtime Rocephin 2 Gram, IV Piggyback, [id number]...until 05/04/18 for 6 weeks ID recommendations: continue Rocephin 2 g IV every 12 hours to continue until 05/04/18 for 6 weeks. Then may suppress afterwards with penicillin VK 250 mg by mouth twice a day for life. Follow up: ======= Follow up with PCP in 1-2 wks Follow up with Cardiology in 2-4 wks BROCK in 4-[address] Alan at [facility]. follow up with ID in 2 weeks post discharge. follow up with CTS in 4 wks Disposition: ======== Rehab Discharge Summary: 57-year-old white female with history of bladder cancer, atrial flutter, pacemaker placement 2015, hypertension, DM2, COPD, pancreatitis, who recently had blood cultures obtained at [facility] on 03/19/18 for fever which were positive in 4 out of 4 bottles for group B Streptococcus. Patient was to start IV antibiotics but was found to have bradycardia and was admitted to [facility] on 03/23/17. Urine culture obtained at [facility] was positive for multiple bacteria [...]
--- OUTSIDE RECORDS SUMMARY | 2024-11-15 20:02 | XMS_ITS | Encounter Summary ---
Author Organization [employer] ([place], [place], [place], [place]) Address [address] [place] [address] Care Team Providers Care Arboriculture Instructor Name Role Phone Unavailable Primary Care Provider Unavailabl e Encounter Details Date Type Department Care Team (Late st Contact Info) Description 03/26/2018 Transcribed Document [facility] [place] Medicine [address] [place] [address] ProviderZion MD [address] [place] [address] Social History Tobacco Use Types [...] - Historical ProviderMD - 03/26/2018 2:00 AM WIRE ROPE SLING MAKER Hospital Ward Clerk Details Entered On: 03/26/2018 1:20 EST Performed [...]
--- OUTSIDE RECORDS SUMMARY | 2024-11-15 20:02 | XMS_ITS | Encounter Summary ---
Author Organization [employer] ([place], [place], [place], [place]) Address [address] [place] [address] Care Team Providers Care Project Management Instructor Name Role Phone Unavailable Primary Care Provider Unavailabl e Encounter Details Date Type Department Care Team (Late st Contact Info) Description 03/27/2018 Transcribed Document [facility] [address] [place] [address] ProviderZion MD [address] [place], [place] [id number] Social History Tobacco Use Types Packs/Day Years Used Date Smoking Tobacco: Never Assessed Comments Unknown Sex and Gender Information Value Date Recorded Sex Assigned at Not on file Legal Sex Female 4:39 PM CDT Gender Identity Not on file Sexual Orientation Not on file documented as of this encounter Miscellaneous Notes * [employer] Conversion Note - Historical ProviderMD - 03/27/2018 8:16 AM CHILD PROTECTIVE SERVICES SPECIALIST Consult Phone Call Documentation Entered On: 03/27/2018 [...] 11:26 EST Electronically signed by Jorge Alberto [facility] Conversion Quality Control Representative Cerner at 05/29/2022 8:38 PM CDT documented in this encounter Plan of Treatment Not on file documented as of this encounter Visit Diagnoses Not on filedocumented in this encounter
--- OUTSIDE RECORDS SUMMARY | 2024-11-15 20:02 | XMS_ITS | Encounter Summary ---
Author Organization [employer] ([place], [place], [place], [place]) Address [address] [place] [address] Care Team Providers Care Art Preparator Name Role Phone Unavailable Primary Care Provider Unavailabl e Encounter Details Date Type Department Care Team (Late st Contact Info) Description 03/29/2018 Transcribed Document [facility] [place] Family Medicine [address] [place] [address] ProviderZion MD [address] [place] [address] Social History Tobacco Use Types [...] - Historical ProviderMD - 03/29/2018 1:22 PM MANAGER OF INTERNAL AUDIT Discharge Instructions Entered On: 03/29/2018 13:23 EST Performed On: 03/29/2018 13:22 EST by Odalys Bush Rn-Immigration Consultant DC Instructions HWD Discharge Summary Sent to : Joshua [phone] Special Instructions : Report: Joshua [phone] Odalys Bush Rn-Immigration Consultant - 03/29/2018 13:22 EST Electronically signed by Jorge Alberto [facility] Conversion Hooker On Cerner at 05/29/2022 8:39 PM CDT documented in this encounter Plan of Treatment Not on file documented as of this encounter Visit Diagnoses Not on filedocumented in this encounter
--- OUTSIDE RECORDS SUMMARY | 2024-11-15 20:02 | XMS_ITS | Encounter Summary ---
Author Organization [employer] ([place], [place], [place], [place]) Address [address] [place] [address] Care Team Providers Care Office Cashier Name Role Phone Unavailable Primary Care Provider Unavailabl e Encounter Details Date Type Department Care Team (Late st Contact Info) Description 03/27/2018 Transcribed Document [facility] [place] Family Medicine [address] [place] [address] ProviderZion MD [address] [place], [place] [id number] Social History Tobacco Use Types Packs/Day Years Used Date Smoking Tobacco: Never Assessed Comments Unknown Sex and Gender Information Value Date Recorded Sex Assigned at Not on file Legal Sex Female 4:39 PM CDT Gender Identity Not on file Sexual Orientation Not on file documented as of this encounter Miscellaneous Notes * [employer] Conversion Note - Historical ProviderMD - 03/27/2018 8:58 AM EDUCATIONAL ASSISTANT TEACHER Consult Phone Call Documentation Entered On: 03/27/2018 [...]
--- OUTSIDE RECORDS SUMMARY | 2024-11-15 20:02 | XMS_ITS | Encounter Summary ---
Author Organization Healthcare Address [address] [place] [address] Care Team Providers Care Marketing Clerk Name Role Phone Cosme Davis MD Primary Care Provider [phone] Encounter Details Date Type Department Care Team (Latest Contact Info) Description 09/18/2024 Travel Social History Tobacco Use Types Packs/Day Years Used Date Smoking Tobacco: Every Day Smokeless Tobacco: Never Comments Unknown Sex and Gender Information Value Date Recorded Sex Assigned at Not on file Legal Sex Female 8:26 PM EDT Gender Identity Not on file Sexual Orientation Not on file documented as of this encounter Plan of Treatment Upcoming Encounters Date Type Department Care Team (Late st Contact Info) Description 01/21/2025 1:30 PM EST Appointment [facility] [address] [place] [address] 01/21/2025 2:00 PM EST Appointment [facility] [address] [place] [address] [address] [place] [address] 01/21/2025 2:40 PM EST Office Visit [facility] [address] [place] [address] Jose Rosario MD [facility] [address] [place] [address] documented as of this encounter Visit Diagnoses Not on filedocumented in this encounter Care Teams Marketing Clerk Relationship Specialty Start Date End Date Cosme Davis MD [address] [facility] [place] [id number] PCP - General 06/24/20 documented as of this encounter
--- OUTSIDE RECORDS SUMMARY | 2024-11-15 20:02 | XMS_ITS | Encounter Summary ---
Author Organization [employer] ([place], [place], [place], [place]) Address [address] [place] [address] Care Team Providers Care Parts Processor Name Role Phone Unavailable Primary Care Provider Unavailabl e Encounter Details Date Type Department Care Team (Late st Contact Info) Description 03/29/2018 Transcribed Document [facility] [place] [address] [place] [address] ProviderZion MD [address] [place] [address] Social History Tobacco Use Types [...] - Historical ProviderMD - 03/29/2018 3:30 PM PURCHASING DIRECTOR Care Management Assessment/Plan Entered On: 03/29/2018 15:31 EST Performed On: 03/29/2018 15:30 EST by Odalys Bush Rn-Geography ProfessorAcademic Assistant Note Anticipated Discharge Date : 03/30/2018 14:00 EST Care Management Note : Patient discharge summary sent through [facility]. Care Management Note Report : Odalys Bush Rn-Geography Professor - 03/29/18 13:22:06 Confirmed with [facility] that patient can transfer today [phone]; [phone]. Spoke with patient's daughter Jazmine [phone] who plans to transport[address] Dr[address] Hamilton advised and [facility] pharmacy aware. Patient should be ready to transport by 15:00. Ninoska Cuellar Rn-Geography Professor Ed - 03/28/18 20:23:22 CM faxed orders to [facility] for IV abx f [phone] per md orders. CM will need to call [facility] to notify them of final d/c plan per MD orders p [phone]. CM to follow for ongoing d/c planning/needs. Ninoska Cuellar, Rn-Geography Professor Ed - 03/28/18 18:12:15 CM recieved call from Gama at [facility] stating they can take pt at their facility, but not until Saturday, as they now have an agreement with [facility]. CM then spoke with Edie from [facility] and she again confirms they can accept pt at their facility tomorrow. CM updated pt and now pt is agreeable to go to [facility]. She also gave CM permission to speak with Jazmine joshi by phone p [phone]. CM spoke with Jazmine and she is agreeable with plan for [facility], stating its much closer to them, approx 30 min. Pt tells CM that her PCP, Dr. Davis had told her that she was not able to do IV abx from home. Discharge plan will be to go to [facility] in the am. CM updated Dr. Stauffer and he reports he will notify [facility] for tomorrow. CM will cont to follow for ongoing d/c planning/needs. Ninoska Cuellar, Rn-Geography Professor Ed - 03/28/18 16:01:02 [facility] Clem states home cost for Rocephin is $3.70/wk. She states they may be able to contract with SNF to provide abx at pt's cost. She asked CM to have SNF call Paulo at their office to see about arranging. CM called MADELYN Corona with [facility] and she will call [facility] to see if this can be arranged. Updated BS RNAva. CM will cont to follow. Ninoska Cuellar, Rn-Geography Professor Ed - 03/28/18 14:57:29 Called [facility] and spoke with Chiquita and updated her on IV abx needs. SHe will check cost and call CM back to see if bed offer is still on the table. CM left for [facility] to update her, left requesting return phone call. CM updated pt and she appears discouraged that [facility] will not accept her as a pt. She tells CM that she is considering just going home. BLAKE also called Clem with [facility] to argueta abx at home. She states that [facility] may also be able to contract with facility to provide them with abx at their cost. CM faxed info on pt and abx to [facility] f [phone]. CM updated BS RN, Ava. CM will cont to follow. Ninoska Cuellar, Rn-Geography Professor Ed - 03/28/18 14:21:[address] Jones this am and he tells CM that pt is ready for discharge from his standpoint and that ID has a plan in place for IV abx. PT does have a PICC in place. Recieved VM from [facility] with [facility] p [phone] stating they are interested in pt. CM went to BS to speak with pt to discuss bed offers. CM presented bed offers and pt tells CM that she really doesn't want to go to another facility. Pt tells CM that she only wants to go to [facility], as she has been there in the past. [facility] had not make bed offer at this time. BLAKE called and spoke with Gama in admissions at [facility] and she tells CM that per her DON, they do not believe they can meet pt's needs at this time. CM pressed for more information and Gama told CM that she would have DON call her. -BLAKE then spoke with MADELYN Corona at [facility] and she states that pt appears too sick at this time to come to their facility. CM provided her with verbal updates, as well as faxed updates f [phone]. She states they will reevaluate now, knowing [...] pt at this time due to the $1655-5040 IV rocephin cost through 05/04/[address] Diaz orders. Cm to follow for ongoing d/c planning/needs. Stew Porras, RN - 03/27/18 16:25:12 edie from [facility] ( [facility] [phone]) called to make bed offer. bed offers will be presented to pt 03/28. [facility] [phone] Stew Porras, RN - 03/27/18 15:00:29 spoke to ID who states pt maybe ready for dc as early as 03/28. id and attending [place] are recommending SNF. spoke with pt and her dtr, jazmine and informed them of suggestion from drs to dc to snf for iv abx. pt and dtr in agreement and [facility] [place].... [place]. Stew Porras, [facility] - 03/27/18 10:34:34 RRS-43 + for BROCK CT consulted and per ID, infection must clear prior to any ant surgical intervention Currnelty on rocephin iv w/bld cx pending Documentation Status Complete : Yes Odalys Bush Rn-Geography Professor - 03/29/2018 15:30 EST Info/List/Choices Provided Patient Offered Choice/Affiliations Explained : Yes List/Info Provided Pt/Fam/Support Person : snf facilities Odalys Bush Rn-Geography Professor - 03/29/2018 15:30 EST Final Discharge Disposition Note-CM Final Discharge Disposition Note-CM : Transport by Family. Discharge To Care Management : SNF with Medicare Certification-03 Name of Receiving Facility/Provider- : [facility] Odalys Bush Rn-Geography Professor - 03/29/2018 15:30 EST documented in this encounter Plan of Treatment Not on file documented as of this encounter Visit Diagnoses Not on filedocumented in this encounter
--- OUTSIDE RECORDS SUMMARY | 2024-11-15 20:02 | XMS_ITS | Encounter Summary ---
Author Organization [employer] ([place], [place], [place], [place]) Address [address] [place] [address] Care Team Providers Care Laboratory Tech Name Role Phone Unavailable Primary Care Provider Unavailabl e Encounter Details Date Type Department Care Team (Late st Contact Info) Description 03/29/2018 Transcribed Document [facility] [place] Medicine [address] [place] [address] ProviderZion MD [address] [place] [address] Social History Tobacco Use Types [...] - Zion ProviderMD - 03/29/2018 3:54 PM UNDERWRITING TECHNICIAN [address] [place] [address] Patient Copy Patient Information: Name: ETHAN CRONIN Current Date: 03/29/2018 15:54:26 : 1960 Patient Address: [address] [place] [id number] Patient Attending Physician: MELY WHITNEY MD Primary Care Provider: CRUZ, NOT LISTED Primary Care Provider Phone: Discharge Diagnosis: Endocarditis Weight on Admission: 165 lb, 14 oz Comment: Follow-up Instructions: With: Address: When: JOHN TSAI [address] [facility] [address] [place] [address] Business (1) Within 1 month With: Address: When: SUJIT DUNBAR [address] [facility], [address] [place] [address] Business (1) Within 2 weeks With: Address: When: Follow up with primary care provider Within 1 to 2 weeks With: Address: When: AJAY MARCANO 10:00 AM Comments: [facility] @ 10:00 NPO after midnight Discharge Instructions: Immunizations Documented During Stay: No Immunizations Found Discharge Summary Sent to: [facility] [phone] Special Instructions: Report: [facility] [phone] Heart Failure Discharge Instructions (if any): Stroke [...] these instructions at home: Medicines ??? Take andz-gld-wnxhjvu and prescription medicines only as told by [...] Assistance with quitting is available by contacting 1-394-AQNL-NOW. This is a free resource providing counseling, [...] Be sure to sign up for the [employer] patient portal, which gives you 03/09 access to your medical information ??? including these discharge instructions ??? using your computer, smartphone, or tablet. Just go to [employer] to get started. Questions? Call . [facility] would like to thank you for allowing us to assist you with your healthcare needs. GERTRUDE Mcconnell VERONICA G, (or solar sales representative and assessor) have received the above patient education materials/instructions and have verbalized understanding: Patient Signature _ Date/Time Patient Wire Drawing Die Maker Signature (if needed) Date/Time Clinician/Hospital Wire Drawing Die Maker Signature (if needed) Date/Time documented in this encounter Plan of Treatment Not on file documented as of this encounter Visit Diagnoses Not on filedocumented in this encounter
--- OUTSIDE RECORDS SUMMARY | 2024-11-15 20:02 | XMS_ITS | Encounter Summary ---
Author Organization [employer] ([place], [place], [place], [place]) Address [address] [place] [address] Care Team Providers Care Sampler Radioactive Waste Name Role Phone Unavailable Primary Care Provider Unavailabl e Encounter Details Date Type Department Care Team (Late st Contact Info) Description 03/29/2018 Transcribed Document [facility] Family Medicine [address] [place] [address] ProviderZion MD [address] [place], [place] [id number] Social History Tobacco Use Types Packs/Day Years Used Date Smoking Tobacco: Never Assessed Comments Unknown Sex and Gender Information Value Date Recorded Sex Assigned at Not on file Legal Sex Female 4:39 PM CDT Gender Identity Not on file Sexual Orientation Not on file documented as of this encounter Miscellaneous Notes * Cerner Conversion Note - Historical ProviderMD - 03/29/2018 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 Spoke with patient's daughter Jazmine [phone] who plans to transport. Dr. Hamilton advised and [facility] pharmacy aware. Patient should be ready to transport by 15:00. Care Management Note Report : Ninoska Cuellar, Rn-Road Contractor Ed - 03/28/18 20:23:22 CM faxed orders to [facility] for IV abx f [phone] per orders. CM will need to call [facility] to notify them of final d/c plan per MD orders p [phone]. CM to follow for ongoing d/c planning/needs. Ninoska Cuellar, Rn-Road Contractor Ed - 03/28/18 18:12:15 CM recieved call from Gama at [facility] stating they can take pt at their facility, but not until Saturday, as [facility]. CM then spoke with Edie from [facility] and she again confirms they can accept pt at their facility tomorrow. CM updated pt and now pt is agreeable to go to [facility]. She also gave CM permission to speak with Jazmine joshi by phone p [phone]. CM spoke with Jazmine and she is agreeable with plan for [facility], stating its much closer to them, approx 30 min. Pt tells CM that her PCP, Dr. Davis had told her that she was not able to do IV abx from home. Discharge plan will be to go to [facility] in the am. CM updated Dr. Stauffer and he reports he will notify [facility] for tomorrow. CM will cont to follow for ongoing d/c planning/needs. Ninoska Cuellar, Rn-Road Contractor Ed - 03/28/18 16:01:02 [facility] Clem states home cost for Rocephin is $3.70/wk. She states they may be able to contract with SNF to provide abx at pt's cost. She asked CM to have SNF call Paulo at their office to see about arranging. CM called MAD[facility]N Corona with [facility] and she will [facility] to see if this can be arranged. Updated BS RNAva. CM will cont to follow. Ninoska Cuellar, Rn-Road Contractor Ed - 03/28/18 14:57:29 Called [facility] and spoke with Chiquita and updated her on IV abx needs. SHe will check cost and call CM back to see if bed offer is still on the table. CM left for Sheri with [facility] to update her, left requesting return phone call. CM updated pt and she appears discouraged that [facility] will not accept her as a pt. She tells CM that she is considering just going home. BLAKE also called Clem with [facility] to argueta abx at home. She states that [facility] may also be able to contract with facility to provide them with abx at their cost. CM faxed info on pt and abx to [facility] f [phone]. CM updated BS RN, Ava. CM will cont to follow. Ninoska Cuellar, Rn-Road Contractor Ed - 03/28/18 14:21:[address] Robert bradley and he tells CM that pt is ready for discharge from his standpoint and that ID has a plan in place for IV abx. PT does have a PICC in place. Recieved VM from [facility] with [facility] [phone] stating they are interested in pt. CM went to BS to speak with pt to discuss bed offers. CM presented bed offers and pt tells CM that she really doesn't want to go to another facility. Pt tells CM that she only wants to go to [facility], as she has been there in the past. [facility] had not make bed offer at this time. BLAKE called and spoke with Gama in admissions at [facility] and she tells CM that per her DON, they do not believe they can meet pt's needs at this time. CM pressed for more information and Gama told CM that she would have DON call her. -CM then spoke with MADELYN Corona at [facility] and she states that pt appears too sick at this time to come to their facility. BLAKE provided her with verbal updates, as well as faxed updates f [phone]. She states they will reevaluate now, knowing [...] pt at this time due to the $3171-2256 IV rocephin cost through 05/04/[address] Diaz orders. Cm to follow for ongoing d/c planning/needs. Stew Porras, REGULO - 03/27/18 16:25:12 edie from [facility] ( [phone]) called to make bed offer. bed offers will be presented to pt 03/28. [facility] [phone] Stew Porras, RN - 03/27/18 15:00:29 spoke to ID who states pt maybe ready for dc as early as 03/28. id and attending [place] are recommending SNF. spoke with pt and her dtr, jazmine and informed them of suggestion from drs to dc to snf for iv abx. pt and dtr in agreement and referrlas made [place] [facility] [place] the following [place].... [place]. Stew Porras, REGULO - 03/27/18 10:34:34 RRS-43 + for BROCK CT consulted and per ID, infection must clear prior to any ant surgical intervention Currnelty on rocephin iv w/bld cx pending Documentation Status Complete : Yes Odalys Bush, Rn-Road Contractor - 03/29/2018 13:20 EST Electronically signed by Jorge Alberto [facility] Conversion City Carrier Cerner at 05/29/2022 8:48 PM CDT documented in this encounter Plan of Treatment Not on file documented as of this encounter Visit Diagnoses Not on filedocumented in this encounter
--- OUTSIDE RECORDS SUMMARY | 2024-11-15 20:02 | XMS_ITS | Encounter Summary ---
Author Organization [employer] ([place], [place], [place], [place]) Address [address] [place] [address] Care Team Providers Care Fourdrinier Machine Tender Name Role Phone Unavailable Primary Care Provider Unavailabl e Encounter Details Date Type Department Care Team (Late st Contact Info) Description 03/29/2018 Transcribed Document [facility] [place] Medicine [address] [place] [address] ProviderZion MD [address] [place], [place] [id number] Social History Tobacco Use Types Packs/Day Years Used Date Smoking Tobacco: Never Assessed Comments Unknown Sex and Gender Information Value Date Recorded Sex Assigned at Not on file Legal Sex Female 4:39 PM CDT Gender Identity Not on file Sexual Orientation Not on file documented as of this encounter Miscellaneous Notes * Cerner Conversion Note - Historical ProviderMD - 03/29/2018 2:00 AM 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
--- OUTSIDE RECORDS SUMMARY | 2024-11-15 20:02 | XMS_ITS | Clinical Summary ---
Author Organization [facility] Address [address] [place] [address] Care Team Providers Care Business Lawyer Name Role Phone Cosme Davis MD Primary Care Provider [phone] Allergies No known active allergies Medications * This document contains information received from the source organization and may not represent a complete record from that organization. atorvastatin (Lipitor) 40 MG tablet Take 1 tablet by mouth daily. 03/19/19 20 Active clopidogrel (Plavix) 75 MG tablet Take 1 tablet by mouth daily. 08/22/19 19 Active levothyroxine (Synthroid, Levoxyl) 25 MCG tablet Take by mouth daily. 08/22/19 19 Active citalopram (CeleXA) 20 MG tablet Take 1 tablet by mouth daily. 11/22/19 21 Active rOPINIRole (Requip) 1 MG tablet Take 1 tablet by mouth nightly. Active amiodarone (Pacerone) 200 MG tablet Take 2 tablets by mouth daily. Active pantoprazole (Protonix) 40 MG EC tablet Take 1 tablet by mouth daily before breakfast. Do not crush, chew, or split. Active apixaban (Eliquis) 5 MG tablet Take 1 tablet by mouth 2 times a day. Active albuterol 108 (90 Base) MCG/ACT inhaler Inhale 2 puffs 4 times a day. Active ondansetron (Zofran) 4 MG tablet Take 1 tablet by mouth every 6 hours as needed for nausea or vomiting. Active insulin glargine (Lantus) 100 UNIT/ML injection vial Inject 10 Units under the skin nightly. Active insulin lispro (Admelog, HumaLOG) 100 UNIT/ML injection pen Inject 1-10 Units under the skin 3 times a day with meals. Active folic acid (Folvite) 1 MG tablet Take 1 tablet by mouth daily. 11/01/19 25 Active midodrine (Proamatine) 10 MG tablet Take 1 tablet by mouth every 12 hours. 10/31/19 Active mirtazapine (Remeron) 15 MG tablet Take 1 tablet by mouth nightly. 10/31/19 Active thiamine (Vitamin B-1) 100 MG tablet Take 1 tablet by mouth daily. 11/01/19 25 Active ALPRAZolam (Xanax) 0.25 MG tablet Take 1 tablet by mouth 2 times a day as needed for anxiety. 30 tablet 10/31/19 25 Active Aspirin Low Dose 81 MG EC tablet 01/16/20 24 Active HYDROcodone-a cetaminophen (Munden) 5-325 MG tablet 11/03/19 25 Active insulin syringe-needl e U-100 31G X 5/16 1 mL misc 12/23/19 24 Active penicillin V (Veetid) 250 MG tablet 11/11/19 25 Active albuterol (Proventil) (2.5 MG/3ML) 0.083% nebulizer solution INHALE THREE (3) ML (1 VIAL) THREE (3) TIMES A DAY BY NEBULIZATION ROUTE NEEDED FOR 30 DAYS, FOR SHORTNESS OF BREATH. 02/12/19 25 Active Lantus SoloStar 100 UNIT/ML injection pen 10/31/19 25 Active Insulin Lispro (Admelog, HumaLOG) 100 UNIT/ML injection vial INJECT DIRECTED PER SLIDING SCALE VIA INSULIN PUMP TO MAXIMUM OF 80 UNITS PER DAY 07/22/19 25 Active ALPRAZolam (Xanax) 0.5 MG tablet Take 1 tablet by mouth 2 times a day as needed. 08/22/19 Discontinued(S top Taking at Discharge) cariprazine (Vraylar) 1.5 MG capsule Take 1 capsule by mouth daily. Discontinued torsemide (Demadex) 20 MG tablet Take 1 tablet by mouth daily. Discontinued sacubitril-va lsartan (Entresto) 24-26 MG tablet Take 1 tablet by mouth 2 times a day. Discontinued penicillin V (Veetid) 250 MG tablet Take 1 tablet by mouth 2 times a day. 025 Discontinued potassium chloride CR (Klor-Con M20) 20 MEQ ER tablet Take 1 tablet by mouth 2 times a day. Do not crush or chew. 025 Discontinued traZODone (Desyrel) 50 MG tablet Take 1 tablet by mouth at night as needed for sleep. 025 Discontinued Active Problems Problem Noted Date Diagnosed Date Shock 10/13/2024 Assessment & Plan (10/13/2024 10:52 AM EDT): Hypotensive Cardiology consulted for echo MICU admission for further evaluation Fall 10/13/2024 Assessment & Plan (10/13/2024 10:52 AM EDT): Injuries of pelvis fx No concern for acute bleeding S/p 2L fluids and 1u blood Imaging reviewed from OSH Ortho consulted Pending tertiary exam Pelvic fracture 10/13/2024 Assessment & Plan (10/13/2024 10:52 AM EDT): Ortho consulted for right inferior pubic ramus and right iliac wing fractures Coronary artery disease with cardiac symptoms and history of coronary revascularization 10/13/2024 Assessment & Plan (10/13/2024 10:52 AM EDT): Hx of: PE on anticoagulation (currently on eliquis and plavix), CHF, CAD s/p CABG, PCI, L atrial appendage ligation, AICD, MV and TV replacement, aortobiliac bypass Currently needing levo for support Cardiology consulted Complex medical condition 10/13/2024 Assessment & Plan (10/13/2024 10:52 AM EDT): Significant PMH including PE on anticoagulation (currently on eliquis and plavix), CAD s/p CABG, PCI, L atrial appendage ligation, AICD, MV and TV replacement, aortobiliac bypass, bladder cancer s/p excision and ileal conduit, kidney mass, chronic endocarditis, pancreatic mass concern, A fib, DM, CKD, current smoker, PAD, HLD, HTN, PRABHU, prior CCY, CHF. Closed fracture of ramus of right pubis 10/14/19 25 Stage 3a chronic kidney disease 12/19/2020 Vitamin D deficiency 12/19/2020 Proteinuria 03/19/2019 Diabetes mellitus, type 2 08/21/2018 Essential hypertension 08/21/2018 CKD (chronic kidney disease) stage 3, GFR 30-59 ml/min 07/25/2018 Resolved Problems Problem Noted Date Diagnosed Date Resolved Date History of urinary diversion procedure 12/19/2020 11/01/2024 Encounters * This document contains information received from the source organization and may not represent a complete record from that organization. Date Type Department Care Team Description 11/13/2024 11:23 AM EDT - 11/13/2024 11:59 PM EDT Hospital Encounter [facility] Radiology [address] [place] [address] Pain in pelvis Discharge Disposition: Home or Self Care 11/13/2024 11:20 AM EDT Office Visit [facility] Orthopaedic Surgery & Sports Medicine [address] [place] [address] Paulo Marquis MD Pain in pelvis (Primary Dx) 11/13/2024 Travel 10/19/2024 Travel 10/18/2024 Travel 10/16/2024 Travel 10/14/2024 Travel 10/13/2024 Travel 10/12/2024 Orders Only External Location [address] [place] [address] Tito Madrid MD 10/12/2024 Orders Only External Location [address] [place] [address] Tito Madrid MD 10/12/2024 Orders Only External Location [address] [place] [address] Tito Madrid MD 10/12/2024 Travel 09/18/2024 Travel from Last 3 Months Immunizations Immunization Administration Dates Next Due Hep B, adult 03/29/2004,10/27/2003,09/21/2003 Influenza, injectable, quadrivalent 11/12/2018,1 ,12/27/2016 Influenza, injectable, quadr ivalent, preservative free 12/05/2022,12/18/2021,11/30/2019 Influenza, seasonal, injectable 11/29/2023 Influenza, seasonal, injecta ble, preservative free 03/07/2015 PPD Skin Test (TB Skin Test) 04/05/2018,03/29/19 19 Pneumococcal Conjugate PCV 13 12/27/2016 TD (adult), 2 Lf tetanus tox oid, preservative free, adsorbed 04/17/1996 Family History Medical History Relation Name Comments Diabetes Father Hyperlipidemia Father Hypertension Father Prostate cancer Father Relation Name Status Comments Father Social History Tobacco Use Types Packs/Day Years [...] and Family Not on file 10/13/2024 Attends Jewish Services Not on file 10/13 Active Member [...] time in the past 12 m [facility] [place], were you homeless or living in a nursing home (including now)? No 10/13/2024 [facility] Util[facility] Answer Date Recorded In [...] F) 11/13/2024 11:20 AM EDT Respiratory Rate 15 10/30/2024 6:08 AM EDT Oxygen Saturation 97% 11/13/2024 11:20 AM EDT Inhaled Oxygen Concentration - - Weight 67.1 kg (148 lb) 11/13/2024 11:20 AM EDT Height 154.9 cm (5' 1 ) 11/13/2024 11:20 AM EDT Body Mass Index 27.96 11/13/2024 11:20 AM EDT Plan of Treatment Upcoming Encounters Date Type Department Care Team (Late st Contact Info) Description 01/21/2025 1:30 PM EST Appointment [facility] Vascular Lab [address] [place] [address] 01/21/2025 2:00 PM EST Appointment [facility] [address] [place] [address] 01/21/2025 2:40 PM EST Office Visit [facility] [address] [place] [address] Jose Rosario MD [address] [facility] [address] [place] [address] Health Maintenance Due Date Last Done Comments [facility]-Depression Screening 1962 [facility]-Medicare Annual Wellness (AWV) 1962 [facility]-/Child/Adol SDOH Screenings 1962 [id number] Vaccine (#1) 06/04/1967 Diabetes: Dental Exam 1972 [facility]-Zoster Vaccines (1 of 2) 1981 CT Colonography 06/04/2007 Colonoscopy 06/04/2007 FIT-DNA 06/04/2007 FIT 06/04/2007 FOBT 06/04/2007 Sigmoidoscopy 06/04/2007 [facility]-Colorectal Cancer Screening 06/04/2007 [facility]-Breast Cancer Screening 2012 [facility]-Pneumococcal Vaccine: 50+ Years (2 of 2 - PPSV23, PCV20, or PCV21) 02/21/2017 12/27/2016 [facility]-RSV Vaccine: 60+ Years or (1 - Risk 60-74 years 1-dose series) 2022 [facility]-Influenza Vaccine (#1) 10/12/202411/28, 12/05/2022, 12/18/2021, Additional history exists [facility]- SDOH Screenings 04/12/2025 [facility]-Adult SDOH Screenings 04/12/2025 10/13/2024 [facility]-Diabetes: Hemoglobin A1C 04/12/2025 10/13/2024 [facility]-DTaP,Tdap,and Td Vaccines (2 - Td or Tdap) 10/12/2034 10/12/2024, 04/17/1996 [facility]-HIV Screening Completed 10/12/2024 [facility]-Hepatitis C Screening Completed 10/12/2024 [facility]-Obesity Intervention Completed 11/13/2024, 02/2024 HPV Vaccines Aged Out No longer eligi ble based on patient's age to complete this topic [facility]-HIB Vaccines Aged Out No longer e ligible based on patient's age to complete this topic [facility]-Hepatitis A Vaccines Aged Out No longer eligible based on patient's age to complete this topic [facility]-IPV Vaccines Aged Out No longer e ligible based on patient's age to complete this topic [facility]-Rotavirus Vaccines Aged Out No lo nger eligible based on patient's age to complete this topic Procedures Procedure Name Priority Date/Time Associated Diagnosis Comments XR PELVIS 3+ VIEWS Routine 11/13/2024 12:00 PM EDT Pain in pelvis POCT GLUCOSE METER UNSOLICITED RESULTS Routine 10/30/2024 11:58 AM EDT POCT GLUCOSE METER UNSOLICITED RESULTS Routine 10/30/2024 9:15 AM EDT POCT GLUCOSE METER UNSOLICITED RESULTS Routine 10/30/2024 7:56 AM EDT POCT GLUCOSE METER UNSOLICITED RESULTS Routine 10/29/2024 7:22 PM EDT POCT GLUCOSE METER UNSOLICITED RESULTS Routine 10/29/2024 4:56 PM EDT POCT GLUCOSE METER UNSOLICITED RESULTS Routine 10/29/2024 11:45 AM EDT POCT GLUCOSE METER UNSOLICITED RESULTS Routine 10/29/2024 7:58 AM EDT POCT GLUCOSE METER UNSOLICITED RESULTS Routine 10/28/2024 7:26 PM EDT POCT GLUCOSE METER UNSOLICITED RESULTS Routine 10/28/2024 5:02 PM EDT POCT GLUCOSE METER UNSOLICITED RESULTS Routine 10/28/2024 12:01 PM EDT POCT GLUCOSE METER UNSOLICITED RESULTS Routine 10/28/2024 8:19 AM EDT CBC W/O DIFFERENTIAL Routine 10/28/2024 3:43 AM EDT RENAL FUNCTION PANEL, PLASMA Routine 10/28/2024 3:43 AM EDT MAGNESIUM, PLASMA Routine 10/28/2024 3:4 3 AM EDT POCT GLUCOSE METER UNSOLICITED RESULTS Routine 10/27/2024 8:02 PM EDT POCT GLUCOSE METER UNSOLICITED RESULTS Routine 10/27/2024 5:09 PM EDT POCT GLUCOSE METER UNSOLICITED RESULTS Routine 10/27/2024 12:03 PM EDT POCT GLUCOSE METER UNSOLICITED RESULTS Routine 10/27/2024 7:52 AM EDT POCT GLUCOSE METER UNSOLICITED RESULTS Routine 10/27/2024 2:54 AM EDT POCT GLUCOSE METER UNSOLICITED RESULTS Routine 10/26/2024 8:12 PM EDT POCT GLUCOSE METER UNSOLICITED RESULTS Routine 10/26/2024 5:12 PM EDT POCT GLUCOSE METER UNSOLICITED RESULTS Routine 10/26/2024 11:56 AM EDT BASIC METABOLIC PANEL, PLASMA Routine 10/26/2024 9:19 AM EDT CBC WITH AUTO DIFFERENTIAL Routine 10/26 9:19 AM EDT POCT GLUCOSE METER UNSOLICITED RESULTS Routine 10/26/2024 7:41 AM EDT POCT GLUCOSE METER UNSOLICITED RESULTS Routine 10/25/2024 7:54 PM EDT POCT GLUCOSE METER UNSOLICITED RESULTS Routine 10/25/2024 5:06 PM EDT HEMOGLOBIN AND HEMATOCRIT, BLOOD Timed 10/25/2024 12:23 PM EDT POCT GLUCOSE METER UNSOLICITED RESULTS Routine 10/25/2024 12:01 PM EDT HEMOGLOBIN AND HEMATOCRIT, BLOOD Timed 10/25/2024 9:25 AM EDT BASIC METABOLIC PANEL, PLASMA Routine 10/25/2024 9:19 AM EDT HEMOGLOBIN AND HEMATOCRIT, BLOOD Timed 10/25/2024 9:19 AM EDT POCT GLUCOSE METER UNSOLICITED RESULTS Routine 10/25/2024 8:00 AM EDT HEMOGLOBIN AND HEMATOCRIT, BLOOD Timed 10/25/2024 2:09 AM EDT HEMOGLOBIN AND HEMATOCRIT, BLOOD Timed 10/24/2024 8:02 PM EDT POCT GLUCOSE METER UNSOLICITED RESULTS Routine 10/24/2024 7:44 PM EDT POCT GLUCOSE METER UNSOLICITED RESULTS Routine 10/24/2024 5:08 PM EDT POCT GLUCOSE METER UNSOLICITED RESULTS Routine 10/24/2024 12:13 PM EDT POCT GLUCOSE METER UNSOLICITED RESULTS Routine 10/24/2024 7:49 AM EDT CBC WITH AUTO DIFFERENTIAL Timed 10/24 6:12 AM EDT BASIC METABOLIC PANEL, PLASMA Routine 10/24/2024 6:12 AM EDT HEMOGLOBIN AND HEMATOCRIT, BLOOD Timed 10/24/2024 12:06 AM EDT POCT GLUCOSE METER UNSOLICITED RESULTS Routine 10/23/2024 7:38 PM EDT HEMOGLOBIN AND HEMATOCRIT, BLOOD Timed 10/23/2024 6:25 PM EDT POCT GLUCOSE METER UNSOLICITED RESULTS Routine 10/23/2024 5:02 PM EDT HEMOGLOBIN AND HEMATOCRIT, BLOOD Timed 10/23/2024 1:21 PM EDT POCT GLUCOSE METER UNSOLICITED RESULTS Routine 10/23/2024 12:31 PM EDT POCT GLUCOSE METER UNSOLICITED RESULTS Routine 10/23/2024 11:32 AM EDT POTASSIUM, PLASMA STAT 10/23/2024 10:26 AM EDT CBC WITH AUTO DIFFERENTIAL Timed 10/23 10:26 AM EDT POCT GLUCOSE METER UNSOLICITED RESULTS Routine 10/23/2024 10:17 AM EDT ECG ADULT STAT 10/23/2024 8:22 AM EDT POCT GLUCOSE METER UNSOLICITED RESULTS Routine 10/23/2024 8:03 AM EDT BASIC METABOLIC PANEL, PLASMA Routine 10/23/2024 2:11 AM EDT HEMOGLOBIN AND HEMATOCRIT, BLOOD Timed 10/23/2024 2:10 AM EDT TRANSFUSE RED BLOOD CELLS Routine 2024 9:16 PM EDT PREPARE RBC Routine 10/22/2024 7:51 PM EDT POCT GLUCOSE METER UNSOLICITED RESULTS Routine 10/22/2024 7:37 PM EDT DIFFICULT CROSSMATCH, PATHOLOGIST INTERPRETATION Routine 10/22/2024 7:04 PM EDT ANTIBODY IDENTIFICATION Routine 10/23/19 7:04 PM EDT TYPE AND SCREEN Routine 10/22/2024 7:04 PM EDT HEMOGLOBIN AND HEMATOCRIT, BLOOD Timed 10/22/2024 7:01 PM EDT POCT GLUCOSE METER UNSOLICITED RESULTS Routine 10/22/2024 6:00 PM EDT PREPARE RBC Routine 10/22/2024 5:02 PM EDT POCT GLUCOSE METER UNSOLICITED RESULTS Routine 10/22/2024 1:09 PM EDT CBC WITH AUTO DIFFERENTIAL Routine 10/22 9:26 AM EDT POCT GLUCOSE METER UNSOLICITED RESULTS Routine 10/21/2024 9:24 PM EDT BASIC METABOLIC PANEL, PLASMA Routine 10/21/2024 7:19 PM EDT POCT GLUCOSE METER UNSOLICITED RESULTS Routine 10/21/2024 6:57 PM EDT POCT GLUCOSE METER UNSOLICITED RESULTS Routine 10/21/2024 4:58 PM EDT POCT GLUCOSE METER UNSOLICITED RESULTS Routine 10/21/2024 4:00 PM EDT POCT GLUCOSE METER UNSOLICITED RESULTS Routine 10/21/2024 2:10 PM EDT POCT GLUCOSE METER UNSOLICITED RESULTS Routine 10/21/2024 1:10 PM EDT POCT GLUCOSE METER UNSOLICITED RESULTS Routine 10/21/2024 11:38 AM EDT POCT GLUCOSE METER UNSOLICITED RESULTS Routine 10/21/2024 10:36 AM EDT POTASSIUM, PLASMA STAT 10/21/2024 9:4 2 AM EDT CBC WITH AUTO DIFFERENTIAL Routine 10/21 9:42 AM EDT POCT GLUCOSE METER UNSOLICITED RESULTS Routine 10/21/2024 9:37 AM EDT ECG ADULT STAT 10/21/2024 8:54 AM EDT POCT GLUCOSE METER UNSOLICITED RESULTS Routine 10/21/2024 7:59 AM EDT BASIC METABOLIC PANEL, PLASMA Routine 10/21/2024 4:24 AM EDT POCT GLUCOSE METER UNSOLICITED RESULTS Routine 10/20/2024 7:55 PM EDT POCT GLUCOSE METER UNSOLICITED RESULTS Routine 10/20/2024 4:59 PM EDT ECG ADULT STAT 10/20/2024 3:36 PM EDT POTASSIUM, PLASMA STAT 10/20/2024 3:3 4 PM EDT POCT GLUCOSE METER UNSOLICITED RESULTS Routine 10/20/2024 12:12 PM EDT BASIC METABOLIC PANEL, PLASMA Routine 10/20/2024 11:54 AM EDT CBC WITH AUTO DIFFERENTIAL Routine 10/20 11:54 AM EDT POCT GLUCOSE METER UNSOLICITED RESULTS Routine 10/20/2024 8:40 AM EDT POCT GLUCOSE METER UNSOLICITED RESULTS Routine 10/20/2024 8:13 AM EDT POCT GLUCOSE METER UNSOLICITED RESULTS Routine 10/20/2024 7:51 AM EDT POCT GLUCOSE METER UNSOLICITED RESULTS Routine 10/19/2024 8:10 PM EDT XR PELVIS 3+ VIEWS STAT 10/19/2024 5: 36 PM EDT POCT GLUCOSE METER UNSOLICITED RESULTS Routine 10/19/2024 4:51 PM EDT POCT GLUCOSE METER UNSOLICITED RESULTS Routine 10/19/2024 11:34 AM EDT POCT GLUCOSE METER UNSOLICITED RESULTS Routine 10/19/2024 8:05 AM EDT CBC WITH AUTO DIFFERENTIAL Routine 10/19 8:03 AM EDT XR PELVIS 3+ VIEWS STAT 10/19/2024 5: 33 AM EDT POCT GLUCOSE METER UNSOLICITED RESULTS Routine 10/19/2024 5:32 AM EDT BASIC METABOLIC PANEL, PLASMA Routine 10/19/2024 12:49 AM EDT POCT GLUCOSE METER UNSOLICITED RESULTS Routine 10/18/2024 6:52 PM EDT POCT GLUCOSE METER UNSOLICITED RESULTS Routine 10/18/2024 6:35 PM EDT POCT GLUCOSE METER UNSOLICITED RESULTS Routine 10/18/2024 6:21 PM EDT XR KNEE RIGHT 3 VIEWS Routine 10/18/2024 5:05 PM EDT XR HIP RIGHT 2 OR 3 VIEWS Routine 2024 5:05 PM EDT XR FEMUR RIGHT 2+ VIEWS Routine 10/19/19 5:05 PM EDT POCT GLUCOSE METER UNSOLICITED RESULTS Routine 10/18/2024 12:23 PM EDT BASIC METABOLIC PANEL, PLASMA Routine 10/18/2024 8:42 AM EDT CBC WITH AUTO DIFFERENTIAL Routine 10/18 8:42 AM EDT POCT GLUCOSE METER UNSOLICITED RESULTS Routine 10/18/2024 5:33 AM EDT POCT GLUCOSE METER UNSOLICITED RESULTS Routine 10/18/2024 5:30 AM EDT POCT GLUCOSE METER UNSOLICITED RESULTS Routine 10/18/2024 5:28 AM EDT POCT GLUCOSE METER UNSOLICITED RESULTS Routine 10/18/2024 1:03 AM EDT POCT GLUCOSE METER UNSOLICITED RESULTS Routine 10/17/2024 5:23 PM EDT POCT GLUCOSE METER UNSOLICITED RESULTS Routine 10/17/2024 12:08 PM EDT CBC W/O DIFFERENTIAL Routine 10/17/2024 8:32 AM EDT POCT GLUCOSE METER UNSOLICITED RESULTS Routine 10/17/2024 5:56 AM EDT TRANSFUSE RED BLOOD CELLS Routine 2024 3:43 AM EDT DIFFICULT CROSSMATCH, PATHOLOGIST INTERPRETATION Routine 10/17/2024 1:42 AM EDT ANTIBODY IDENTIFICATION Routine 10/18/19 1:42 AM EDT TYPE AND SCREEN Routine 10/17/2024 1:42 AM EDT PREPARE RBC Routine 10/17/2024 1:32 AM EDT COMPREHENSIVE METABOLIC PANEL, PLASMA Routine 10/17/2024 1:04 AM EDT CBC WITH AUTO DIFFERENTIAL Routine 10/17 1:04 AM EDT PHOSPHORUS, PLASMA Routine 10/17/2024 1: 04 AM EDT MAGNESIUM, PLASMA Routine 10/17/2024 1:0 4 AM EDT POCT GLUCOSE METER UNSOLICITED RESULTS Routine 10/16/2024 5:58 PM EDT FL MODIFIED BARIUM SWALLOW Routine 10/16 3:05 PM EDT POCT GLUCOSE METER UNSOLICITED RESULTS Routine 10/16/2024 1:10 PM EDT FOLATE, SERUM Routine 10/16/2024 8:11 AM EDT VITAMIN B12, SERUM Routine 10/16/2024 8: 11 AM EDT FERRITIN, SERUM Routine 10/16/2024 8:11 AM EDT PLASMA RENIN ACTIVITY, LC/MS/MS (SO) Routine 10/16/2024 8:11 AM EDT ADRENOCORTICOTROPIC HORMONE (ACTH) Routine 10/16/2024 8:11 AM EDT LA CRITICAL CARE, E/M 30-74 MINUTES Routine 10/16/2024 6:41 AM EDT Closed fracture of ramus of right pubis, initial encounter (CMS/HCC) Shock (CMS/HCC) Essential hypertension Complex medical condition POCT GLUCOSE METER UNSOLICITED RESULTS Routine 10/16/2024 5:32 AM EDT IRON & TOTAL IRON BINDING CAPACITY, PLASMA (INCLUDES TRANSFERRIN) Add-On 10/16/2024 12:09 AM EDT COMPREHENSIVE METABOLIC PANEL, PLASMA Routine 10/16/2024 12:09 AM EDT CBC WITH AUTO DIFFERENTIAL Routine 10/16 12:09 AM EDT PHOSPHORUS, PLASMA Routine 10/16/2024 12:09 AM EDT MAGNESIUM, PLASMA Routine 10/16/2024 12:09 AM EDT POCT GLUCOSE METER UNSOLICITED RESULTS Routine 10/15/2024 6:15 PM EDT CORTISOL, 60 Routine 10/15/2024 1:29 PM EDT CORTISOL, 30 Routine 10/15/2024 12:55 PM EDT CORTISOL (BASELINE), TIME=0 Routine 10/15/2024 12:08 PM EDT ALDOSTERONE Routine 10/15/2024 12:08 PM EDT ADRENOCORTICOTROPIC HORMONE (ACTH) Routine 10/15/2024 12:08 PM EDT CORTISOL STIMULATION TEST Routine 2024 12:08 PM EDT POCT GLUCOSE METER UNSOLICITED RESULTS Routine 10/15/2024 10:55 AM EDT CORTISOL Routine 10/15/2024 8:29 AM EDT LA CRITICAL CARE, E/M 30-74 MINUTES Routine 10/15/2024 6:49 AM EDT Shock (CMS/HCC) POCT GLUCOSE METER UNSOLICITED RESULTS Routine 10/15/2024 5:10 AM EDT PROCALCITONIN, PLASMA STAT Add-on 10/15/2024 3:23 AM EDT COMPREHENSIVE METABOLIC PANEL, PLASMA Routine 10/15/2024 3:23 AM EDT CBC WITH AUTO DIFFERENTIAL Routine 10/15 3:23 AM EDT PHOSPHORUS, PLASMA Routine 10/15/2024 3: 23 AM EDT MAGNESIUM, PLASMA Routine 10/15/2024 3:2 3 AM EDT POCT GLUCOSE METER UNSOLICITED RESULTS Routine 10/14/2024 11:02 PM EDT POCT GLUCOSE METER UNSOLICITED RESULTS Routine 10/14/2024 5:29 PM EDT COMPREHENSIVE URINE DRUG SCREENING,QUALITATIVE ASSAY, >= 27 DRUG CLASSES Routine 10/14/2024 3:04 PM EDT VITAMIN B1 (THIAMINE), WHOLE BLOOD (SO) Routine 10/14/2024 2:35 PM EDT BLOOD GAS PANEL WITH OXIMETRY, MIXED VENOUS Routine 10/14/2024 2:31 PM EDT POCT GLUCOSE METER UNSOLICITED RESULTS Routine 10/14/2024 12:08 PM EDT T3 Add-On 10/14/2024 9:44 AM EDT TREPONEMA PALLIDUM (SYPHILIS) ANTIBODIES WITH REFLEX TO RPR AND RPR TITER (THOSE WITH NO KNOWN SYPHILIS) Routine 10/14/2024 9:44 AM EDT LA CRITICAL CARE, E/M 30-74 MINUTES Routine 10/14/2024 8:59 AM EDT Closed fracture of ramus of right pubis, initial encounter (CMS/HCC) Shock (CMS/HCC) XR CHEST 1 VIEW STAT 10/14/2024 7:59 AM EDT BLOOD GAS PANEL, ARTERIAL Routine 2024 7:52 AM EDT TSH Add-On 10/14/2024 6:25 AM EDT FREE T4, PLASMA Add-On 10/14/2024 6:25 AM EDT BETA HYDROXYBUTYRIC ACID Add-On 025 6:25 AM EDT PROCALCITONIN, PLASMA Routine 10/14/2024 6:25 AM EDT POCT GLUCOSE METER UNSOLICITED RESULTS Routine 10/14/2024 5:32 AM EDT POCT GLUCOSE METER UNSOLICITED RESULTS Routine 10/14/2024 12:22 AM EDT PHOSPHORUS, PLASMA Routine 10/14/2024 12:22 AM EDT MAGNESIUM, PLASMA Routine 10/14/2024 12:22 AM EDT IONIZED CALCIUM, SERUM Routine 12:22 AM EDT CBC W/O DIFFERENTIAL Routine 10/14/2024 12:22 AM EDT BASIC METABOLIC PANEL, PLASMA Routine 10/14/2024 12:22 AM EDT POCT GLUCOSE METER UNSOLICITED RESULTS Routine 10/14/2024 12:20 AM EDT OXYGEN THERAPY STAT 10/13/2024 8:00 PM EDT XR HAND RIGHT 3+ VIEWS STAT 6:57 PM EDT POCT GLUCOSE METER UNSOLICITED RESULTS Routine 10/13/2024 6:[address] HEAD WO IV CONTRAST Routine 5:01 PM EDT POCT GLUCOSE METER UNSOLICITED RESULTS Routine 10/13/2024 12:51 PM EDT POCT GLUCOSE METER UNSOLICITED RESULTS Routine 10/13/2024 9:40 AM EDT TROPONIN T, HIGH SENSITIVITY, 2 HOUR, PLASMA Timed 10/13/2024 9:40 AM EDT CVC TRIPLE LUMEN (SMARTFORM LINK) Routine 10/13/2024 9:26 AM EDT Shock (CMS/HCC) HC INSERT NON-TUNNEL CV CATH Routine 10/13/2024 9:26 AM EDT Shock (CMS/HCC) LA INSERT NON-TUNNEL CV CATH Routine 10/13/2024 9:26 AM EDT Shock (CMS/HCC) XR CHEST 1 VIEW STAT 10/13/2024 9:25 AM EDT HC INSERT CATH,ART,PERCUT,SHORTTERM Routine 10/13/2024 9:09 AM EDT Shock (CMS/HCC) LA INSERT CATH,ART,PERCUT,SHORTTERM Routine 10/13/2024 9:09 AM EDT Shock (CMS/HCC) OXYGEN THERAPY STAT 10/13/2024 8:00 AM EDT ECHO, ADULT TRANSTHORACIC COMPLETE W/ 3D STAT 10/13/2024 7:17 AM EDT LACTATE, VENOUS Routine 10/13/2024 6:35 AM EDT BLOOD CULTURE (AEROBIC/ANAEROBIC SET) Routine 10/13/2024 6:35 AM EDT URINALYSIS MICROSCOPIC FOR UA REFLEX Routine 10/13/2024 6:08 AM EDT URINE RAO PANEL Routine 10/13/2024 6:08 AM EDT URINALYSIS WITH REFLEX MICROSCOPIC Routine 10/13/2024 6:08 AM EDT URINALYSIS WITH REFLEX MICROSCOPIC AND CULTURE Routine 10/13/2024 6:08 AM EDT METHICILLIN RESISTANT STAPHYLOCOCCUS AUREUS (MRSA) BY PCR Routine 10/13/2024 6:05 AM EDT MULTI DRUG RESISTANCE TEST Routine 10/13 6:05 AM EDT VIV AURIS SURVEILLANCE BY PCR Routine 10/13/2024 6:05 AM EDT POCT GLUCOSE METER UNSOLICITED RESULTS Routine 10/13/2024 5:52 AM EDT N-TERMINAL PROBNP, PLASMA Add-On 2024 5:18 AM EDT PROCALCITONIN, PLASMA Add-On 10/13/2024 5:18 AM EDT TROPONIN T, HIGH SENSITIVITY, 0 HOUR, PLASMA, REFLEX TO 2 HOUR STAT 10/13/2024 5:18 AM EDT XR KNEE RIGHT 3 VIEWS STAT 10/13/2024 4:27 AM EDT XR FEMUR RIGHT 2+ VIEWS STAT 10/14/19 4:27 AM EDT XR HIP RIGHT 2 OR 3 VIEWS STAT 2024 4:[address] BONY PELVIS STAT 10/13/2024 3:57 AM EDT HEMOGLOBIN A1C Add-On 10/13/2024 3:44 AM EDT BLOOD GAS PANEL, VENOUS STAT 10/14/19 3:44 AM EDT HEMOGLOBIN AND HEMATOCRIT, BLOOD STAT 10/13/2024 3:44 AM EDT TRANSFUSE RED BLOOD CELLS Routine 2024 2:27 AM EDT PREPARE RBC STAT 10/13/2024 2:09 AM EDT POCT GLUCOSE METER UNSOLICITED RESULTS Routine 10/13/2024 1:47 AM EDT PREPARE RBC STAT 10/13/2024 1:15 AM EDT POCT GLUCOSE METER UNSOLICITED RESULTS Routine 10/13/2024 1:07 AM EDT ECG ADULT STAT 10/13/2024 12:16 AM EDT ANTI XA LEVEL LOW MOLECULAR WEIGHT HEPARIN STAT 10/12/2024 11:56 PM EDT URINALYSIS WITH REFLEX MICROSCOPIC STAT 10/12/2024 11:56 PM EDT DRUG ABUSE SCREEN, URINE STAT 025 11:56 PM EDT RED BLOOD CELL ANTIBODY WITH ANTIGEN NOTIFICATION Routine 10/12/2024 11:55 PM EDT DIFFICULT CROSSMATCH, PATHOLOGIST INTERPRETATION Routine 10/12/2024 11:55 PM EDT ANTIBODY IDENTIFICATION Routine 10/13/19 25 11:55 PM EDT ED HIV 1/2 ANTIBODY/ANTIGEN SCREEN WITH REFLEX TO HIV I/II DIFFERENTIATION Routine 10/12/2024 11:55 PM EDT ED PROTOCOL HIV 1/2 ANTIBODY/ANTIGEN SCREEN W/REFLEX TO HIV 1/2 ANTIBODY DIFFERENTIATION Routine 10/12/2024 11:55 PM EDT HEPATITIS C ANTIBODY - ED W/REFLEX TO HCV QUANT PCR Routine 10/12/2024 11:55 PM EDT TYPE AND SCREEN Timed 10/12/2024 11:55 PM EDT TEG GLOBAL HEMOSTASIS WITH LYSIS STAT 10/12/2024 11:55 PM EDT TEST QUALITATIVE PLASMA STAT 10/12/2024 11:55 PM EDT ETHYL ALCOHOL PLASMA STAT 10/12/2024 11:55 PM EDT APTT STAT 10/12/2024 11:55 PM EDT PROTHROMBIN TIME(PT) / INR STAT 10/12 11:55 PM EDT CBC W/O DIFFERENTIAL STAT 10/12/2024 11:55 PM EDT COMPREHENSIVE METABOLIC PANEL, PLASMA STAT 10/12/2024 11:55 PM EDT TRAUMA SHOCK PANEL BLOOD GAS STAT 10/12/2024 11:55 PM EDT OXYGEN THERAPY STAT 10/12/2024 11:48 PM EDT OXYGEN THERAPY STAT 10/12/2024 11:[address] OUTSIDE IMAGES 10/12/2024 8:[address] OUTSIDE IMAGES 10/12/2024 8:[address] OUTSIDE IMAGES 10/12/2024 8:1 3 PM EDT from Last 3 Months Results * XR Pelvis 3+ Views (11/13/2024 12:00 PM EDT) Only the most recent of3 resultswithin the time period is included. Anatomical Region Laterality Modality Body, Pelvis Digital [...] MD IMG XR PROCEDURES Final Resu lt * (ABNORMAL) POCT glucose meter (10/30/2024 11:58 AM EDT) Only the most recent of87 resultswithin the time period is included. POCT Glucose 251(H) 74 - 99 mg/dL 10/30/2024 12:01 PM EDT [facility] Comment:Accuracy of a glucos e result obtained from a capillary whole blood specimen relies upon adequate, non-compromised capillary blood flow. If the capillary glucose result is not consistent with the patient's clinical signs and symptoms, glucose testing should be repeated with either an arterial or venous sample on the glucometer or sent to the main labortory for testing. Comment 10/30/2024 12:01 PM EDT [facility] Aircraft Instrument Repairer ID Jessika Schneider [id number] 12:01 PM EDT [facility] Device ID [id number] 10/30/2024 12:01 PM EDT [facility] Specimen Type POC Capillary 10/30/2024 12:01 PM EDT [facility] Blood Capillary blood specimen / Unknown 10/30/2024 11:58 AM EDT 10/30/2024 12:01 PM EDT Tiffany Patten DO LAB POINT OF CARE TE ST DOCKED DEVICE UNSOLICITED RESULTS Final Result [facility] [address] [place] [id number] * (ABNORMAL) CBC W/O Differential (10/28/2024 3:43 AM EDT) Only the most recent of4 resultswithin the time period is included. WBC Count 9.69 3.70 - 10.30 10*3/uL LAB HEMATOLOGY METHOD 10/28/2024 4:21 AM EDT [facility] RBC Count 2.95(L) 3.90 - 5.20 10*6/uL LAB HEMATOLOGY METHOD 10/28/2024 4:21 AM EDT [facility] HGB 8.3(L) 11.2 - 15.7 g/dL LAB HEMATOLOGY METHOD 10/28/2024 4:21 AM EDT [facility] HCT 27.0(L) 34.0 - 45.0 % LAB HEMATOLOGY METHOD 10/28/2024 4:21 AM EDT [facility] Platelet Count 363 155 - 369 10*3/uL LAB HEMATOLOGY METHOD 10/28/2024 4:21 AM EDT [facility] MCV 92 79 - 98 fL LAB HEMATOLOGY METHOD 10/28/2024 4:21 AM EDT [facility] MCH 28.1 26.0 - 32.0 pg LAB HEMATOLOGY METHOD 10/28/2024 4:21 AM EDT [facility] MCHC 30.7 30.7 - 35.5 g/dL LAB HEMATOLOGY METHOD 10/28/2024 4:21 AM EDT [facility] RDW 24.8(H) 11.5 - 14.5 % LAB HEMATOLOGY METHOD 10/28/2024 4:21 AM EDT [facility] MPV 11.9 8.8 - 12.5 fL LAB HEMATOLOGY METHOD 10/28/2024 4:21 AM EDT [facility] nRBC 0.0 <=0.0 per 100 WBCs LAB HEMATOLOGY METHOD 10/28/2024 4:21 AM EDT [facility] Blood Venous blood specimen / Unknown Venipuncture / Unknown 10/28/2024 3:43 AM EDT 10/28/2024 4:13 AM EDT Tiffany Patten LAB BLOOD ORDERABLES Final Re sult Performing Organization Address [facility] de Phone Number [facility]ALTH[facility] [address] [place] [address] * Magnesium, Plasma (10/28/2024 3:43 AM EDT) Only the most recent of5 resultswithin the time period is included. Magnesium, Plasma 2.2 1.9 - 2.4 mg/dL 10/28/2024 4:42 AM EDT [facility] Blood Venous blood specimen / Unknown Venipuncture / Unknown 10/28/2024 3:43 AM EDT 10/28/2024 4:13 AM EDT Tiffany Cerrato Sandor LAB BLOOD ORDERABLES Final Re sult Performing Organization Address [facility] de Phone Number [facility] [address] [place] [address] * (ABNORMAL) Renal Function Panel, Plasma (10/28/2024 3:43 AM EDT) Glucose, Plasma 276(H) 74 - 99 mg/dL 10/28/2024 4:42 AM EDT [facility] BUN, Plasma 89(H) 8 - 23 mg/dL 10/28/2024 4:42 AM EDT [facility] Creatinine, Plasma 2.19(H) 0.60 - 1.10 mg/dL 10/28/2024 4:42 AM EDT [facility] BUN/Creatinine Ratio 41 10/28/2024 4:42 AM EDT [facility] Sodium, Plasma 138 136 - 145 mmol/L 10/28/2024 4:42 AM EDT [facility] Potassium, Plasma 5.1(H) 3.6 - 4.9 mmol/L 10/28/2024 4:42 AM EDT [facility] Chloride, Plasma 102 97 - 107 mmol/L 10/28/2024 4:42 AM EDT [facility] CO2, Plasma 25 22 - 29 mmol/L 10/28/2024 4:42 AM EDT [facility] Anion Gap 11 6 - 16 mmol/L 10/28/2024 4:42 AM EDT [facility] Total Calcium, Plasma 8.9 8.9 - 10.2 mg/dL 10/28/2024 4:42 AM EDT [facility] Phosphorus, Plasma 2.8 2.5 - 4.5 mg/dL 10/28/2024 4:42 AM EDT [facility] Albumin, Plasma 3.0(L) 3.5 - 5.2 g/dL 10/28/2024 4:42 AM EDT [facility] eGFRcr 24.9 mL/min/1.7 3m*2 10/28/2024 4:42 AM EDT [facility] Comment:Reported eGFRcr in m L/min/1.73m2 is based the CKD-EPI 2020 equation that does not use a race coefficient. Blood Venous blood specimen / Unknown Venipuncture / Unknown 10/28/2024 3:43 AM EDT 10/28/2024 4:13 AM EDT us Tiffany Patten DO LAB BLOOD ORDERABLES Final Re sult [facility] [address] [place] [id number] * (ABNORMAL) CBC and differential (10/26/2024 9:19 AM EDT) Only the most recent of11 resultswithin the time period is included. WBC Count 9.12 3.70 - 10.30 10*3/uL LAB HEMATOLOGY METHOD 10/26/2024 9:25 AM EDT [facility] RBC Count 3.03(L) 3.90 - 5.20 10*6/uL LAB HEMATOLOGY METHOD 10/26/2024 9:25 AM EDT [facility] HGB 8.5(L) 11.2 - 15.7 g/dL LAB HEMATOLOGY METHOD 10/26/2024 9:25 AM EDT [facility] HCT 27.1(L) 34.0 - 45.0 % LAB HEMATOLOGY METHOD 10/26/2024 9:25 AM EDT [facility] Platelet Count 331 155 - 369 10*3/uL LAB HEMATOLOGY METHOD 10/26/2024 9:25 AM EDT [facility] MCV 89 79 - 98 fL LAB HEMATOLOGY METHOD 10/26/2024 9:25 AM EDT [facility] MCH 28.1 26.0 - 32.0 pg LAB HEMATOLOGY METHOD 10/26/2024 9:25 AM EDT [facility] MCHC 31.4 30.7 - 35.5 g/dL LAB HEMATOLOGY METHOD 10/26/2024 9:25 AM EDT [facility] RDW 24.6(H) 11.5 - 14.5 % LAB HEMATOLOGY METHOD 10/26/2024 9:25 AM EDT [facility] MPV 11.4 8.8 - 12.5 fL LAB HEMATOLOGY METHOD 10/26/2024 9:25 AM EDT [facility] nRBC 0.0 <=0.0 per 100 WBCs LAB HEMATOLOGY METHOD 10/26/2024 9:25 AM EDT [facility] Differential Type Automated LAB HEMATOLOGY METHOD 10/26/2024 9:25 AM EDT [facility] Neutrophils % 76 % LAB HEMATOLOGY METHOD 10/26/2024 9:25 AM EDT [facility] Lymphocytes % 13 % LAB HEMATOLOGY METHOD 10/26/2024 9:25 AM EDT [facility] Monocytes % 7 % LAB HEMATOLOGY METHOD 10/26/2024 9:25 AM EDT [facility] Eosinophils % 3 % LAB HEMATOLOGY METHOD 10/26/2024 9:25 AM EDT [facility] Basophils % 1 % LAB HEMATOLOGY METHOD 10/26/2024 9:25 AM EDT [facility] Immature Granulocytes % 0 % LAB HEMATOLOGY METHOD 10/26/2024 9:25 AM EDT [facility] Neutrophils Absolute 6.90(H) 1.60 - 6.10 10*3/uL LAB HEMATOLOGY METHOD 10/26/2024 9:25 AM EDT [facility] Lymphocytes Absolute 1.22 1.20 - 3.90 10*3/uL LAB HEMATOLOGY METHOD 10/26/2024 9:25 AM EDT [facility] Monocytes Absolute 0.60 0.30 - 0.90 10*3/uL LAB HEMATOLOGY METHOD 10/26/2024 9:25 AM EDT [facility] Eosinophils Absolute 0.31 0.00 - 0.50 10*3/uL LAB HEMATOLOGY METHOD 10/26/2024 9:25 AM EDT [facility] Basophils Absolute 0.05 0.00 - 0.10 10*3/uL LAB HEMATOLOGY METHOD 10/26/2024 9:25 AM EDT [facility] Immature Granulocytes Absolute 0.04 0.00 - 0.06 10*3/uL LAB HEMATOLOGY METHOD 10/26/2024 9:25 AM EDT [facility] Blood Venous blood specimen / Unknown Venipuncture / Unknown 10/26/2024 9:19 AM EDT 10/26/2024 9:23 AM EDT Narrative [facility] - 10/26/2024 9:25 AM EDT Therapeutic decision making should be based on absolute values, rather than percentages. us Yuriy Lockett MD LAB BLOOD ORDERABLES Final Resul t [facility] [address] [place] [address] * (ABNORMAL) Basic metabolic panel (10/26/2024 9:19 AM EDT) Only the most recent of10 resultswithin the time period is included. Glucose, Plasma 244(H) 74 - 99 mg/dL 10/26/2024 9:49 AM EDT [facility] BUN, Plasma 76(H) 8 - 23 mg/dL 10/26/2024 9:49 AM EDT [facility] Creatinine, Plasma 1.97(H) 0.60 - 1.10 mg/dL 10/26/2024 9:49 AM EDT [facility] BUN/Creatinine Ratio 39 10/26/2024 9:49 AM EDT [facility] Sodium, Plasma 138 136 - 145 mmol/L 10/26/2024 9:49 AM EDT [facility] Potassium, Plasma 5.0(H) 3.6 - 4.9 mmol/L 10/26/2024 9:49 AM EDT [facility] Chloride, Plasma 102 97 - 107 mmol/L 10/26/2024 9:49 AM EDT [facility] CO2, Plasma 25 22 - 29 mmol/L 10/26/2024 9:49 AM EDT [facility] Anion Gap 11 6 - 16 mmol/L 10/26/2024 9:49 AM EDT [facility] Total Calcium, Plasma 8.7(L) 8.9 - 10.2 mg/dL 10/26/2024 9:49 AM EDT [facility] eGFRcr 28.3 mL/min/1.7 3m*2 10/26/2024 9:49 AM EDT [facility] Comment:Reported eGFRcr in m L/min/1.73m2 is based the CKD-EPI 2020 equation that does not use a race coefficient. Blood Venous blood specimen / Unknown Venipuncture / Unknown 10/26/2024 9:19 AM EDT 10/26/2024 9:23 AM EDT us Yuriy Lockett MD LAB BLOOD ORDERABLES Final Resul t Performing Organization Address City/[facility] Co de Phone Number [facility] [address] [place] [address] * (ABNORMAL) Hemoglobin and Hematocrit, Blood (10/25/2024 12:23 PM EDT) Only the most recent of11 resultswithin the time period is included. HGB 8.1(L) 11.2 - 15.7 g/dL LAB HEMATOLOGY METHOD 10/25/2024 12:30 PM EDT [facility] HCT 25.4(L) 34.0 - 45.0 % LAB HEMATOLOGY METHOD 10/25/2024 12:30 PM EDT [facility] Blood Venous blood specimen / Unknown Venipuncture / Unknown 10/25/2024 12:23 PM EDT 10/25/2024 12:27 PM EDT us Yuriy Lockett MD LAB BLOOD ORDERABLES Final Resul t Performing Organization Address City/[facility]/ZIP Co de Phone Number [facility] [address] [place] [address] * (ABNORMAL) Potassium (10/23/2024 10:26 AM EDT) Only the most recent of3 resultswithin the time period is included. Potassium, Plasma 5.2(H) 3.6 - 4.9 mmol/L 10/23/2024 10:53 AM EDT [facility] Blood Venous blood specimen / Unknown Venipuncture / Unknown 10/23/2024 10:26 AM EDT 10/23/2024 10:33 AM EDT Yuriy Lockett MD LAB BLOOD ORDERABLES Final Resul t Performing Organization Address [facility] de Phone Number HEALTHCARE [facility] [address] [place] [address] * ECG Adult (10/23/2024 8:22 AM EDT) Only the most recent of4 resultswithin the time period is included. EKG DIAGNOSIS CLASS Abnormal MUSE ECG Ventricular Rate 85 BPM MUSE ECG QRSD Interval 94 ms MUSE ECG QT Interval 378 ms MUSE ECG QTC Interval 449 ms MUSE ECG R [place] 23 degrees MUSE ECG T Wave [place] 124 degrees MUSE ECG Diagnosis Atrial fibrillation with frequent ventricular-pac ed complexes MUSE ECG Diagnosis Nonspecific ST and T wave abnormality MUSE ECG Diagnosis MUSE ECG Diagnosis MUSE ECG Diagnosis Confirmed by José Miguel Rincon ([id number]) on 10/28/2024 10:50:56 PM MUSE ECG 10/23/2024 8:22 AM EDT 10/28/2024 10:50 PM EDT Yuriy Lockett MD ECG ORDERABLES Final Result Performing Organization Address [facility] de Phone Number MUSE ECG * Transfuse RBC (10/22/2024 11:40 PM EDT) Only the most recent of3 resultswithin the time period is included. us Yuriy Lockett MD BLOOD TRANSFUSION ORDERABLES Fin al Result * Difficult Crossmatch, Pathologist Interpretation (10/22/2024 7:04 PM EDT) Only the most recent of3 resultswithin the time period is included. Clinical Diagnosis, Difficult Crossmatch Anemia 10/23/2024 3:38 PM EDT BLOOD BANK Interpretation , Difficult Crossmatch CONSULTATION FOR DIFFICULT CROSSMATCH Blood Bank testing performed on the specimen collected on 10/22/2024 revealed the presence of one or more antibodies against the following corresponding antigens (antigen negative prevalence): E [RH3] (71%), Antibody of Undetermined Specificity (AUSP). Previously identified and/or historic antibodies against the following corresponding antigens are noted (antigen negative prevalence): E [RH3] (71%), Antibody of Undetermined Specificity (AUSP). The identified alloantibody(anti- E) may be clinically significant in causing hemolytic transfusion reactions. AUSP: weak nonspecific reactivity is seen in 0 of three screen cells and in 1 of 11 cells in the associated panel. The presence of inconclusive antibodies is generally considered to be clinically insignificant, although it may prolong the time needed to find crossmatch-compati ble RBC units. RECOMMENDATIONS - This patient should receive crossmatch-compati ble RBCs negative for the following antigens: E [RH3]. - Please prepare an Epic order for anticipated RBC transfusions. As discussed above, advance notice may mitigate delays in making available crossmatch-compati ble RBCs for transfusion. - Platelets, plasma, and cryoprecipitate are not affected by these antibodies. These products may be ordered accordingly. - Please discuss this finding with the patient, patient's parent(s), or legal guardian(s) so they are aware that they are a difficult crossmatch. A resident was involved in the service. I attest I examined the relevant preparations for the specimens and confirmed the diagnosis or interpretation. 10/23/2024 3:38 PM EDT BLOOD BANK Pathologist Signature, Difficult Crossmatch Reviewed by: Elizabeth Marin MD 10/23/2024 3:38 PM EDT BLOOD BANK LAB CP ASR DISCLAIMER Yes 10/23/2024 3:38 PM EDT BLOOD BANK Blood Venous blood specimen / Unknown Venipuncture / Unknown 10/22/2024 7:04 PM EDT 10/22/2024 7:08 PM EDT us Yuriy Lockett MD LAB BLOOD BANK TEST ORDERABLES F inal Result BLOOD BANK [address] [place] [address], * Antibody Identification (10/22/2024 7:04 PM EDT) Only the most recent of3 resultswithin the time period is included. Antibody ID Anti-E Non-specif ic Patricia 10/22/2024 8:04 PM EDT BLOOD BANK Blood Venous blood specimen / Unknown Venipuncture / Unknown 10/22/2024 7:04 PM EDT 10/22/2024 7:08 PM EDT Yuriy Lockett MD LAB BLOOD BANK TEST ORDERABLES F inal Result Performing Organization Address [facility] Co de Phone Number BLOOD BANK [address] [place] [address], * (ABNORMAL) Type and screen (10/22/2024 7:04 PM EDT) Only the most recent of3 resultswithin the time period is included. ABO/Rh O Positive 10/22/2024 5:02 PM EDT BLOOD BANK Antibody Screen Positive(A) 10/22/2024 5:02 PM EDT BLOOD BANK Specimen Expiration 10/25/2024 23:59 10/22/2024 5:02 PM EDT BLOOD BANK Blood Venous blood specimen / Unknown Venipuncture / Unknown 10/22/2024 7:04 PM EDT 10/22/2024 7:08 PM EDT Yuriy Lockett MD LAB BLOOD BANK TEST ORDERABLES F inal Result Performing Organization Address City/[facility]/ZIP Co de Phone Number BLOOD BANK [address] [place] [address], [place] * Prepare Leukocyte Reduced RBC: 1 Units (10/22/2024 5:02 PM EDT) Only the most recent of3 resultswithin the time period is included. Product Code [id number] BLOO D BANK Dispense Status Transfused BLOOD BANK Blood Expiration Date [id number] BLOOD BANK Unit Number [id number] B LOOD BANK Product Blood Type 5100 BLOOD BANK Blood Type O+ BLOOD BANK Crossmatch Compatible BLOOD BANK Other us Yuriy Lockett MD BLOOD BANK PRODUCT ORDERABLES Fi nal Result BLOOD BANK [address] [place] [address], * XR Knee Right 3 Views (10/18/2024 5:05 PM EDT) Only the most recent of2 resultswithin the time period is included. Anatomical Region Laterality Modality Lower Extremities, Knee Right Digital Radiography Impressions 10/19/2024 8:14 AM EDT 1. Unchanged alignment of nondisplaced fracture of the right inferior pubic ramus. Known fracture of the right iliac wing is not perceptible on this exam. 2. Minimal degenerative changes of the posterior right hip and patellofemoral joint. No acute osseous or articular abnormality of the right hip, femur or knee. CRITICAL RESULT: No. COMMUNICATION: Per this written report. Drafted by Stewart Wiggins MD on 10/19/2024 8:09 AM Final report signed by Stewart Wiggins MD on 10/19/2024 8:14 AM Narrative 10/19/2024 8:14 AM EDT CLINICAL INDICATION: PMF TECHNIQUE: XR PELVIS 3+ VIEWS, XR FEMUR RIGHT 2+ VIEWS, XR HIP RIGHT 2 OR 3 VIEWS, XR KNEE RIGHT 3 VIEWS COMPARISON: CT dated October 13, 2024. FINDINGS: 3 views of the pelvis show fracture of the right inferior pubic ramus. Known fracture of the right iliac wing is not perceptible on this exam. Hip joint space and alignment are normal. Pubic symphysis and sacroiliac joints are normal. 3 views of the right hip, 2 views of the right femur and 3 views of the right knee. Hip joint space and alignment are normal. Minimal osteophyte formation in the posterior aspect of the joint. Right inferior pubic ramus fracture is again appreciated. No fracture of the femur. Knee joint space and alignment are normal. No knee effusion. Minimal degenerative changes of the patellofemoral joint. Arterial calcification. Procedure Note Stewart Wiggins MD - 10/19/2024 CLINICAL INDICATION: PMF TECHNIQUE: XR PELVIS 3+ VIEWS, XR FEMUR RIGHT 2+ VIEWS, XR HIP RIGHT 2 OR 3 VIEWS, XRKNEE RIGHT 3 VIEWS COMPARISON: CT dated October 13, 2024. FINDINGS: 3 views of the pelvis show fracture of the right inferior pubic ramus.Known fracture of the right iliac wing is not perceptible on this exam.Hip joint space and alignment are normal. Pubic symphysis and sacroiliacjoints are normal. 3 views of the right hip, 2 views of the right femur and 3 views of theright knee. Hip joint space and alignment are normal. Minimal osteophyteformation in the posterior aspect of the joint. Right inferior pubic ramusfracture is again appreciated. No fracture of the femur. Knee joint spaceand alignment are normal. No knee effusion. Minimal degenerative changesof the patellofemoral joint. Arterial calcification. IMPRESSION: 1.Unchanged alignment of nondisplaced fracture of the right inferiorpubic ramus. Known fracture of the right iliac wing is not perceptible onthis exam. 2.Minimal degenerative changes of the posterior right hip andpatellofemoral joint. No acute osseous or articular abnormality of theright hip, femur or knee. CRITICAL RESULT: No. COMMUNICATION: Per this written report. Drafted by Stewart Wiggins MD on 10/19/2024 8:09 AM Final report signed by Stewart Wiggins MD on 10/19/2024 8:14 AM Aidan Harrison MD IMG XR PROCEDURES Final Result * XR Femur Right 2+ Views (10/18/2024 5:05 PM EDT) Only the most recent of2 resultswithin the time period is included. Anatomical Region Laterality Modality Lower Extremities, Femur Right Digital Radiography Impressions 10/19/2024 8:14 AM EDT 1. Unchanged alignment of nondisplaced fracture of the right inferior pubic ramus. Known fracture of the right iliac wing is not perceptible on this exam. 2. Minimal degenerative changes of the posterior right hip and patellofemoral joint. No acute osseous or articular abnormality of the right hip, femur or knee. CRITICAL RESULT: No. COMMUNICATION: Per this written report. Drafted by Stewart Wiggins MD on 10/19/2024 8:09 AM Final report signed by Stewart Wiggins MD on 10/19/2024 8:14 AM Narrative 10/19/2024 8:14 AM EDT CLINICAL INDICATION: PMF TECHNIQUE: XR PELVIS 3+ VIEWS, XR FEMUR RIGHT 2+ VIEWS, XR HIP RIGHT 2 OR 3 VIEWS, XR KNEE RIGHT 3 VIEWS COMPARISON: CT dated October 13, 2024. FINDINGS: 3 views of the pelvis show fracture of the right inferior pubic ramus. Known fracture of the right iliac wing is not perceptible on this exam. Hip joint space and alignment are normal. Pubic symphysis and sacroiliac joints are normal. 3 views of the right hip, 2 views of the right femur and 3 views of the right knee. Hip joint space and alignment are normal. Minimal osteophyte formation in the posterior aspect of the joint. Right inferior pubic ramus fracture is again appreciated. No fracture of the femur. Knee joint space and alignment are normal. No knee effusion. Minimal degenerative changes of the patellofemoral joint. Arterial calcification. Procedure Note Stewart Wiggins MD - 10/19/2024 CLINICAL INDICATION: PMF TECHNIQUE: XR PELVIS 3+ VIEWS, XR FEMUR RIGHT 2+ VIEWS, XR HIP RIGHT 2 OR 3 VIEWS, XRKNEE RIGHT 3 VIEWS COMPARISON: CT dated October 13, 2024. FINDINGS: 3 views of the pelvis show fracture of the right inferior pubic ramus.Known fracture of the right iliac wing is not perceptible on this exam.Hip joint space and alignment are normal. Pubic symphysis and sacroiliacjoints are normal. 3 views of the right hip, 2 views of the right femur and 3 views of theright knee. Hip joint space and alignment are normal. Minimal osteophyteformation in the posterior aspect of the joint. Right inferior pubic ramusfracture is again appreciated. No fracture of the femur. Knee joint spaceand alignment are normal. No knee effusion. Minimal degenerative changesof the patellofemoral joint. Arterial calcification. IMPRESSION: 1.Unchanged alignment of nondisplaced fracture of the right inferiorpubic ramus. Known fracture of the right iliac wing is not perceptible onthis exam. 2.Minimal degenerative changes of the posterior right hip andpatellofemoral joint. No acute osseous or articular abnormality of theright hip, femur or knee. CRITICAL RESULT: No. COMMUNICATION: Per this written report. Drafted by Stewart Wiggins MD on 10/19/2024 8:09 AM Final report signed by Stewart Wiggins MD on 10/19/2024 8:14 AM Aidan Harrison MD IMG XR PROCEDURES Final Result * XR Hip Right 2 or 3 Views (10/18/2024 5:05 PM EDT) Only the most recent of2 resultswithin the time period is included. Anatomical Region Laterality Modality Lower Extremities, Hip Right Digital R adiography Impressions 10/19/2024 8:14 AM EDT 1. Unchanged alignment of nondisplaced fracture of the right inferior pubic ramus. Known fracture of the right iliac wing is not perceptible on this exam. 2. Minimal degenerative changes of the posterior right hip and patellofemoral joint. No acute osseous or articular abnormality of the right hip, femur or knee. CRITICAL RESULT: No. COMMUNICATION: Per this written report. Drafted by Stewart Wiggins MD on 10/19/2024 8:09 AM Final report signed by Stewart Wiggins MD on 10/19/2024 8:14 AM Narrative 10/19/2024 8:14 AM EDT CLINICAL INDICATION: PMF TECHNIQUE: XR PELVIS 3+ VIEWS, XR FEMUR RIGHT 2+ VIEWS, XR HIP RIGHT 2 OR 3 VIEWS, XR KNEE RIGHT 3 VIEWS COMPARISON: CT dated October 13, 2024. FINDINGS: 3 views of the pelvis show fracture of the right inferior pubic ramus. Known fracture of the right iliac wing is not perceptible on this exam. Hip joint space and alignment are normal. Pubic symphysis and sacroiliac joints are normal. 3 views of the right hip, 2 views of the right femur and 3 views of the right knee. Hip joint space and alignment are normal. Minimal osteophyte formation in the posterior aspect of the joint. Right inferior pubic ramus fracture is again appreciated. No fracture of the femur. Knee joint space and alignment are normal. No knee effusion. Minimal degenerative changes of the patellofemoral joint. Arterial calcification. Procedure Note Stewart Wiggins MD - 10/19/2024 CLINICAL INDICATION: PMF TECHNIQUE: XR PELVIS 3+ VIEWS, XR FEMUR RIGHT 2+ VIEWS, XR HIP RIGHT 2 OR 3 VIEWS, XRKNEE RIGHT 3 VIEWS COMPARISON: CT dated October 13, 2024. FINDINGS: 3 views of the pelvis show fracture of the right inferior pubic ramus.Known fracture of the right iliac wing is not perceptible on this exam.Hip joint space and alignment are normal. Pubic symphysis and sacroiliacjoints are normal. 3 views of the right hip, 2 views of the right femur and 3 views of theright knee. Hip joint space and alignment are normal. Minimal osteophyteformation in the posterior aspect of the joint. Right inferior pubic ramusfracture is again appreciated. No fracture of the femur. Knee joint spaceand alignment are normal. No knee effusion. Minimal degenerative changesof the patellofemoral joint. Arterial calcification. IMPRESSION: 1.Unchanged alignment of nondisplaced fracture of the right inferiorpubic ramus. Known fracture of the right iliac wing is not perceptible onthis exam. 2.Minimal degenerative changes of the posterior right hip andpatellofemoral joint. No acute osseous or articular abnormality of theright hip, femur or knee. CRITICAL RESULT: No. COMMUNICATION: Per this written report. Drafted by Stewart Wiggins MD on 10/19/2024 8:09 AM Final report signed by Stewart Wiggins MD on 10/19/2024 8:14 AM Aidan Harrison MD IMG XR PROCEDURES Final Result * (ABNORMAL) Phosphorus (10/17/2024 1:04 AM EDT) Only the most recent of4 resultswithin the time period is included. Phosphorus, Plasma 1.7(L) 2.5 - 4.5 mg/dL 10/17/2024 1:43 AM EDT [facility] Blood Venous blood specimen / Unknown Venipuncture / Unknown 10/17/2024 1:04 AM EDT 10/17/2024 1:14 AM EDT us Aidan Harrison MD LAB BLOOD ORDERABLES Final Res ult [facility] [address] [place] [address] * (ABNORMAL) Comprehensive metabolic panel (10/17/2024 1:04 AM EDT) Only the most recent of4 resultswithin the time period is included. Glucose, Plasma 138(H) 74 - 99 mg/dL 10/17/2024 1:43 AM EDT [facility] BUN, Plasma 50(H) 8 - 23 mg/dL 10/17/2024 1:43 AM EDT [facility] Creatinine, Plasma 1.74(H) 0.60 - 1.10 mg/dL 10/17/2024 1:43 AM EDT [facility] BUN/Creatinine Ratio 29 10/17/2024 1:43 AM EDT [facility] Sodium, Plasma 141 136 - 145 mmol/L 10/17/2024 1:43 AM EDT [facility] Potassium, Plasma 4.0 3.6 - 4.9 mmol/L 10/17/2024 1:43 AM EDT [facility] Chloride, Plasma 114(H) 97 - 107 mmol/L 10/17/2024 1:43 AM EDT [facility] CO2, Plasma 16(L) 22 - 29 mmol/L 10/17/2024 1:43 AM EDT [facility] Anion Gap 11 6 - 16 mmol/L 10/17/2024 1:43 AM EDT [facility] Total Calcium, Plasma 8.2(L) 8.9 - 10.2 mg/dL 10/17/2024 1:43 AM EDT [facility] Total Protein 5.2(L) 6.3 - 7.9 g/dL 10/17/2024 1:43 AM EDT [facility] Albumin, Plasma 2.9(L) 3.5 - 5.2 g/dL 10/17/2024 1:43 AM EDT [facility] AST, Plasma 15 10 - 35 U/L 10/17/2024 1:43 AM EDT [facility] ALT, Plasma 5(L) 10 - 35 U/L 10/17/2024 1:43 AM EDT [facility] Alkaline Phosphatase, Plasma 85 46 - 142 U/L 10/17/2024 1:43 AM EDT [facility] Total Bilirubin, Plasma 0.2 0.2 - 1.1 mg/dL 10/17/2024 1:43 AM EDT [facility] eGFRcr 32.8 mL/min/1.7 3m*2 10/17/2024 1:43 AM EDT [facility] Comment:Reported eGFRcr in m L/min/1.73m2 is based the CKD-EPI 2020 equation that does not use a race coefficient. Blood Venous blood specimen / Unknown Venipuncture / Unknown 10/17/2024 1:04 AM EDT 10/17/2024 1:14 AM EDT us Aidan Harrison MD LAB BLOOD ORDERABLES Final Res ult [facility] [address] [place] [address] * [place] Modified Barium Swallow (10/16/2024 3:05 PM EDT) Anatomical Region Laterality Modality Esophagus, stomach and duodenum Digital Radiography Impressions 10/16/2024 3:54 PM EDT No aspiration of any tested consistency. Laryngeal penetration of thin barium consistency. Please see separate note by Speech therapy team for dietary recommendations. CRITICAL RESULT: No. COMMUNICATION: Per this written report. By electronically signing this report, I, the attending physician, attest that I have personally reviewed the images/data for the above examination(s) and agree with the final edited report. Drafted by JUJU Dixon RT (R) on 10/16/2024 3:43 PM Final report signed by Madhu Lowe MD on 10/16/2024 3:54 PM Narrative 10/16/2024 3:54 PM EDT CLINICAL INDICATION: Dysphagia TECHNIQUE: Modified barium swallow was performed utilizing video fluoroscopy in conjunction with the Speech Pathology team. The patient ingested barium media of varying consistencies. Fluoroscopy Time: 1.7 minutes. COMPARISON: None. FINDINGS: Swallowing: Thin consistency (IDDSI 0): There is no aspiration. There is laryngeal penetration by the straw and with sequential sips by the cup. There is no laryngeal penetration with single sips by the cup or the teaspoon. Tolsona consistency (IDDSI 2): There is no aspiration or laryngeal penetration by the cup. Pudding consistency (IDDSI 4): There is no aspiration or laryngeal penetration. There is vallecular residue. Regular cracker consistency (IDDSI 7): There is no aspiration or laryngeal penetration. There is vallecular residue. Other: Enteric tube is present. Procedure Note Madhu Lowe MD - 10/16/2024 CLINICAL INDICATION: Dysphagia TECHNIQUE: Modified barium swallow was performed utilizing video fluoroscopy inconjunction with the Speech Pathology team. The patient ingested bariummedia of varying consistencies. Fluoroscopy Time: 1.7 minutes. COMPARISON: None. FINDINGS: Swallowing: Thin consistency (IDDSI 0): There is no aspiration. There is laryngealpenetration by the straw and with sequential sips by the cup. There is nolaryngeal penetration with single sips by the cup or the teaspoon. Tolsona consistency (IDDSI 2): There is no aspiration or laryngealpenetration by the cup. Pudding consistency (IDDSI 4): There is no aspiration or laryngealpenetration. There is vallecular residue. Regular cracker consistency (IDDSI 7): There is no aspiration or laryngealpenetration. There is vallecular residue. Other: Enteric tube is present. IMPRESSION: No aspiration of any tested consistency. Laryngeal penetration of thin barium consistency. Please see separate note by Speech therapy team for dietaryrecommendations. CRITICAL RESULT: No. COMMUNICATION: Per this written report. By electronically signing this report, I, the attending physician, attestthat I have personally reviewed the images/data for the aboveexamination(s) and agree with the final edited report. Drafted by JUJU Dixon RT (R) on 10/16/2024 3:43 PM Final report signed by Madhu Lowe MD on 10/16/2024 3:54 PM Aidan Harrison MD IMG FLUOROSCOPY PROCEDURES Fin al Result * Plasma Renin Activity (LC/MS/MS) (10/16/2024 8:11 AM EDT) [facility] PRA RESULT 2.11 0.25 - 5.82 ng/mL/h 10/20/2024 12:14 PM EDT [facility] Comment: This test was developed and its analytical performance characteristics have been determined by [facility]. It has not been cleared or approved by the FDA. This assay has been validated pursuant to the CLIA regulations and is used for clinical purposes. Blood Venous blood specimen / Unknown Venipuncture / Unknown 10/16/2024 8:11 AM EDT 10/16/2024 8:22 AM EDT Narrative [facility]) - 10/20/2024 12:14 PM EDT Performing Organization Information: Site ID: [id number] Name: [facility] Address: [address] [place] [id number] Director: Enedina Thao MD, PhD Aidan Harrison MD LAB BLOOD ORDERABLES Final Res ult [facility]) [facility] [address] [address] * (ABNORMAL) ACTH (10/16/2024 8:11 AM EDT) Only the most recent of2 resultswithin the time period is included. [facility] ACTH 5.45(L) 7.2 - 63 pg/mL 10/16/2024 11:38 AM EDT [facility] Blood Venous blood specimen / Unknown Venipuncture / Unknown 10/16/2024 8:11 AM EDT 10/16/2024 8:42 AM EDT Aidan Harrison MD LAB BLOOD ORDERABLES Final Res ult [facility] [address] [place] [address] * Folate (10/16/2024 8:11 AM EDT) Folate, Serum 8.2 >4.6 ng/mL 10/16/2024 9:29 AM EDT [facility] Blood Venous blood specimen / Unknown Venipuncture / Unknown 10/16/2024 8:11 AM EDT 10/16/2024 8:34 AM EDT us Aidan Harrison MD LAB BLOOD ORDERABLES Final Res ult Performing Organization Address City/[facility]/ZIP Co de Phone Number [facility] [address] [place] [address] * Ferritin (10/16/2024 8:11 AM EDT) Ferritin, Serum 73 13 - 150 ng/mL 10/16/2024 9:29 AM EDT [facility] Blood Venous blood specimen / Unknown Venipuncture / Unknown 10/16/2024 8:11 AM EDT 10/16/2024 8:34 AM EDT us Aidan Harrison MD LAB BLOOD ORDERABLES Final Res ult Performing Organization Address [facility] [place] [address] * Vitamin B12 (10/16/2024 8:11 AM EDT) Vitamin B12, Serum 906 210 - 1,033 pg/mL 10/16/2024 9:29 AM EDT [facility] Blood Venous blood specimen / Unknown Venipuncture / Unknown 10/16/2024 8:11 AM EDT 10/16/2024 8:34 AM EDT us Aidan Harrison MD LAB BLOOD ORDERABLES Final Res ult Performing Organization Address City/[facility] [place] [address] * [facility] CRIT[facility], E/M 30-74 MINUTES (10/16/2024 6:41 AM EDT) Narrative Aidan Harrison MD - 10/16/2024 6:41 AM EDT Aidan Harrison MD 10/17/2024 9:08 AM Critical Care Performed by: Aidan Harrison MD Authorized by: Aidan Harrison MD Critical care provider statement: Critical care time (minutes): 35 Critical care time was exclusive of: Separately billable procedures and treating other patients and teaching time Critical care was time spent personally by me on the following activities: Ordering and performing treatments and interventions, ordering and review of laboratory studies, ordering and review of radiographic studies, ventilator management, examination of patient and obtaining history from patient or surrogate I assumed subsequent critical care for this patient from a provider in my division, on the same day: no Critical care statement: I saw and evaluated the patient with the resident/ fellow. I discussed the case with the resident/ fellow and agree with the findings and plan as documented. us Aidan Harrison MD IN CLINIC/BEDSIDE ORDERABLES F inal Result * (ABNORMAL) Iron & Total Iron Binding Capacity, Plasma (Includes Transferrin) (10/16/2024 12:09 AM EDT) Iron, Plasma 21(L) 30 - 160 ug/dL 10/16/2024 7:15 AM EDT [facility] Transferrin, Plasma 159(L) 200 - 360 mg/dL 10/16/2024 7:15 AM EDT [facility] Total Iron Binding Capacity, Plasma 199(L) 240 - 450 ug/mL 10/16/2024 7:15 AM EDT [facility] Transferrin Saturation 11(L) 14 - 50 % 10/16/2024 7:15 AM EDT [facility] Blood Venous blood specimen / Unknown Venipuncture / Unknown 10/16/2024 12:09 AM EDT 10/16/2024 12:37 AM EDT us Aidan Harrison MD LAB BLOOD ORDERABLES Final Res ult [facility] [address] [place] [address] * CORTISOL, 60 (10/15/2024 1:29 PM EDT) Cortisol Time=60 36.10 Before 10am: 3.7 - 19.4. After 5pm: 2.9 - 17.3 ug/dL 10/15/2024 3:46 PM EDT [facility] Comment:Administer cosyntrop in and obtain serum cortisol a Blood Venous blood specimen / Unknown Venipuncture / Unknown 10/15/2024 1:29 PM EDT 10/15/2024 2:03 PM EDT us Aidan Harrison MD LAB BLOOD ORDERABLES Final Res ult Performing Organization Address City/[facility]/ZIP Co de Phone Number [facility] [address] [place] [address] * Cortisol, 30 (10/15/2024 12:55 PM EDT) Cortisol,Time=30 31.20 Before 10am: 3.7 - 19.4. After 5pm: 2.9 - 17.3 ug/dL 10/15/2024 2:42 PM EDT [facility] Comment:Administer cosyntrop in and obtain serum cortisol a Blood Venous blood specimen / Unknown Venipuncture / Unknown 10/15/2024 12:55 PM EDT 10/15/2024 1:21 PM EDT us Aidan Harrison MD LAB BLOOD ORDERABLES Final Res ult Performing Organization Address [facility] Co de Phone Number [facility] [address] [place] [address] * Aldosterone (10/15/2024 12:08 PM EDT) Aldosterone 23.0 4.0 - 31.0 ng/dL 10/16/2024 1:35 AM EDT [facility] Blood Venous blood specimen / Unknown Venipuncture / Unknown 10/15/2024 12:08 PM EDT 10/15/2024 2:08 PM EDT us Aidan Harrison MD LAB BLOOD ORDERABLES Final Res ult Performing Organization Address City/[facility]/ZIP Co de Phone Number [facility] [address] [place] [address] * Cortisol Baseline (10/15/2024 12:08 PM EDT) Cortisol (Baseline) 11.60 Before 10am: 3.7 - 19.4. After 5pm: 2.9 - 17.3 ug/dL 10/15/2024 2:07 PM EDT [facility] Comment:Administer cosyntrop in and obtain serum cortisol a Blood Venous blood specimen / Unknown Venipuncture / Unknown 10/15/2024 12:08 PM EDT 10/15/2024 12:14 PM EDT us Aidan Harrison MD LAB BLOOD ORDERABLES Final Res ult Performing Organization Address [facility]/ZIP Co de Phone Number [facility] [address] [place] [address] * Cortisol (10/15/2024 8:29 AM EDT) Cortisol 9.60 Before 10am: 3.7 - 19.4. After 5pm: 2.9 - 17.3 ug/dL 10/15/2024 9:29 AM EDT [facility] Comment:Testing performed on [employer], standardized against [facility] Reference Standard concentration values assigned by LC-MS/MS and verified by BCR 192 and BCR 193 certified reference materials. Blood Venous blood specimen / Unknown Venipuncture / Unknown 10/15/2024 8:29 AM EDT 10/15/2024 8:38 AM EDT us Aidan Harrison MD LAB REF LAB BLOOD AND FLUID OR D Final Result [facility] [address] [place] [address] * [facility] CR[facility], E/M 30-74 MINUTES (10/15/2024 6:49 AM EDT) Narrative Aidan Harrison MD - 10/15/2024 6:49 AM EDT Aidan Harrison MD 10/15/2024 2:14 PM Critical Care Performed by: Aidan Harrison MD Authorized by: Aidan Harrison MD Critical care provider statement: Critical care time (minutes): 35 Critical care time was exclusive of: Separately billable procedures and treating other patients and teaching time Critical care was time spent personally by me on the following activities: Ordering and performing treatments and interventions, ordering and review of laboratory studies, ordering and review of radiographic studies, examination of patient and obtaining history from patient or surrogate I assumed subsequent critical care for this patient from a provider in my division, on the same day: no Critical care statement: I saw and evaluated the patient with the resident/ fellow. I discussed the case with the resident/ fellow and agree with the findings and plan as documented. Aidan Harrison MD IN CLINIC/BEDSIDE ORDERABLES F inal Result * (ABNORMAL) Procalcitonin (10/15/2024 3:23 AM EDT) Only the most recent of3 resultswithin the time period is included. Procalcitonin, Plasma 0.16(H) <0.09 ng/mL 10/15/2024 6:41 AM EDT [facility] Blood Arterial blood specimen / Unknown Arterial Puncture / Unknown 10/15/2024 3:23 AM EDT 10/15/2024 3:31 AM EDT Narrative [facility] - 10/15/2024 6:41 AM EDT Procalcitonin concentrations in healthy individuals are <0.09 ng/mL. Published data support the following interpretive risk assessment: An elevated procalcitonin result does not always indicate sepsis. Various non-infectious conditions are known to increase procalcitonin. Results should be considered in the context of clinical symptoms and other laboratory tests. Procalcitonin >2.0 ng/mL: Concentrations >2.0 ng/mL on the first day of ICU admission are associated with a higher risk of progression to severe sepsis and/or septic shock. The change in PCT over time may help predict 28 day mortality risk. Please consult www.zksetg-unh-bzldnyljot.com for more information. Test performed at [facility]. us Aidan Harrison MD LAB BLOOD ORDERABLES Final Res ult [facility] [address] [facility] [place] [address] * (ABNORMAL) Comprehensive Urine Drug Screening, Qualitative Assay, >= 27 Drug Classes (53:04 PM EDT) Acetaminophen Negative Negative 10/16/2024 9:48 AM EDT [facility] Alprazolam Negative Negative 10/16/2024 9:48 AM EDT [facility] Amantadine Negative Negative 10/16/2024 9:48 AM EDT [facility] Amitriptyline Negative Negative 10/16/2024 9:48 AM EDT [facility] Amphetamine Negative Negative 10/16/2024 9:48 AM EDT [facility] Atenolol Negative Negative 10/16/2024 9:48 AM EDT [facility] Benzoylecgonine Negative Negative 9:48 AM EDT [facility] Bisoprolol Negative Negative 10/16/2024 9:48 AM EDT [facility] Bupropion Negative Negative 10/16/2024 9:48 AM EDT [facility] Butalbital Negative Negative 10/16/2024 9:48 AM EDT [facility] Carbamazepine Negative Negative 10/16/2024 9:48 AM EDT [facility] Carisoprodol Negative Negative 10/16/2024 9:48 AM EDT [facility] Chlorpheniramine Negative Negative 10/17/19 9:48 AM EDT [facility] Citalopram Negative Negative 10/16/2024 9:48 AM EDT [facility] Clindamycin Negative Negative 10/16/2024 9:48 AM EDT [facility] Clonidine Negative Negative 10/16/2024 9:48 AM EDT [facility] Clopidogrel / Ticlopidine Negative Negative 10/16/2024 9:48 AM EDT [facility] Cocaethylene Negative Negative 10/16/2024 9:48 AM EDT [facility] Cocaine Negative Negative 10/16/2024 9:48 AM EDT [facility] Codeine Negative Negative 10/16/2024 9:48 AM EDT [facility] Cyclobenzaprine Negative Negative 9:48 AM EDT [facility] Desvenlafaxine Negative Negative 10/16/2024 9:48 AM EDT [facility] Dextromethorphan Negative Negative 10/17/19 9:48 AM EDT [facility] Diazepam Negative Negative 10/16/2024 9:48 AM EDT [facility] Diltiazem Negative Negative 10/16/2024 9:48 AM EDT [facility] Diphenhydramine Negative Negative 9:48 AM EDT [facility] Doxepine Negative Negative 10/16/2024 9:48 AM EDT [facility] Doxylamine Negative Negative 10/16/2024 9:48 AM EDT [facility] EDDP-Methadone metabolite Negative Negative 10/16/2024 9:48 AM EDT [facility] Fentanyl Negative Negative 10/16/2024 9:48 AM EDT [facility] Fluconazole Negative Negative 10/16/2024 9:48 AM EDT [facility] Fluoxetine Negative Negative 10/16/2024 9:48 AM EDT [facility] Guaifenesin Negative Negative 10/16/2024 9:48 AM EDT [facility] Haloperidol Negative Negative 10/16/2024 9:48 AM EDT [facility] Heroin/6-JUVENCIO Negative Negative 10/16/2024 9:48 AM EDT [facility] Hydrocodone Negative Negative 10/16/2024 9:48 AM EDT [facility] Hydroxyzine / Cetirizine metabolite Negative Negative 10/16/2024 9:48 AM EDT [facility] Ibuprofen Negative Negative 10/16/2024 9:48 AM EDT [facility] Imipramine Negative Negative 10/16/2024 9:48 AM EDT [facility] Ketamine Negative Negative 10/16/2024 9:48 AM EDT [facility] Labetolol Negative Negative 10/16/2024 9:48 AM EDT [facility] Lamotrigine Negative Negative 10/16/2024 9:48 AM EDT [facility] Levetiracetam Negative Negative 10/16/2024 9:48 AM EDT [facility] Lidocaine Positive(A) Negative 10/16/2024 9:48 AM EDT [facility] MDA Negative Negative 10/16/2024 9:48 AM EDT [facility] MDMA Negative Negative 10/16/2024 9:48 AM EDT [facility] Memantine Negative Negative 10/16/2024 9:48 AM EDT [facility] Meperidine Negative Negative 10/16/2024 9:48 AM EDT [facility] Meprobamate Negative Negative 10/16/2024 9:48 AM EDT [facility] Metaxalone Negative Negative 10/16/2024 9:48 AM EDT [facility] Methamphetamine Negative Negative 9:48 AM EDT [facility] Methocarbamol Negative Negative 10/16/2024 9:48 AM EDT [facility] Methylecgonine Negative Negative 10/16/2024 9:48 AM EDT [facility] Metoclopramide Negative Negative 10/16/2024 9:48 AM EDT [facility] Metoprolol Negative Negative 10/16/2024 9:48 AM EDT [facility] Metronidazole Negative Negative 10/16/2024 9:48 AM EDT [facility] Midazolam Negative Negative 10/16/2024 9:48 AM EDT [facility] Midazolam Metabolite Negative Negative 10/16/2024 9:48 AM EDT [facility] Mirtazapine Negative Negative 10/16/2024 9:48 AM EDT [facility] Misc Test Result Positive(A) Negative 025 9:48 AM EDT [facility] Comment: Escitalopram Citalopram Trazodone Naproxen Negative Negative 10/16/2024 9:48 AM EDT [facility] Nefazodone Negative Negative 10/16/2024 9:48 AM EDT [facility] Norfentanyl Negative Negative 10/16/2024 9:48 AM EDT [facility] Nortriptyline Negative Negative 10/16/2024 9:48 AM EDT [facility] Ordanstron Negative Negative 10/16/2024 9:48 AM EDT [facility] Oxcarbazepine Negative Negative 10/16/2024 9:48 AM EDT [facility] Oxycodone Positive(A) Negative 10/16/2024 9:48 AM EDT [facility] Paroxethine Negative Negative 10/16/2024 9:48 AM EDT [facility] Phenobarbital Negative Negative 10/16/2024 9:48 AM EDT [facility] Phentermine Negative Negative 10/16/2024 9:48 AM EDT [facility] Phenytoin Negative Negative 10/16/2024 9:48 AM EDT [facility] Primidone Negative Negative 10/16/2024 9:48 AM EDT [facility] Promethazine Negative Negative 10/16/2024 9:48 AM EDT [facility] Propofol Negative Negative 10/16/2024 9:48 AM EDT [facility] Propranolol Negative Negative 10/16/2024 9:48 AM EDT [facility] Quetiapine Negative Negative 10/16/2024 9:48 AM EDT [facility] Quinine Negative Negative 10/16/2024 9:48 AM EDT [facility] Rantidine Negative Negative 10/16/2024 9:48 AM EDT [facility] Sertraline Negative Negative 10/16/2024 9:48 AM EDT [facility] Spironolactone Negative Negative 10/16/2024 9:48 AM EDT [facility] Tizanidine Negative Negative 10/16/2024 9:48 AM EDT [facility] Topiramate Negative Negative 10/16/2024 9:48 AM EDT [facility] [facility] Tramadol Negative Negative 10/16/2024 9:48 AM EDT [facility] Trazadone/ Trazadone metabolite Negative Negative 10/16/2024 9:48 AM EDT [facility] Trimethoprim Negative Negative 10/16/2024 9:48 AM EDT [facility] Valproic Acid Negative Negative 10/16/2024 9:48 AM EDT [facility] Venlafaxine Negative Negative 10/16/2024 9:48 AM EDT [facility] Verapamil Negative Negative 10/16/2024 9:48 AM EDT [facility] Zolpidem Negative Negative 10/16/2024 9:48 AM EDT [facility] Xylazine Negative Negative 10/16/2024 9:48 AM EDT [facility] Urine Urine specimen obtained by clean catch procedure / Unknown Non-blood Collection / Unknown 10/14/2024 3:04 PM EDT 10/14/2024 3:16 PM EDT Aidan Harrison MD LAB URINE ORDERABLES Final Res ult [facility] [address] [place] [address] * Vitamin B1, Whole Blood (10/14/2024 2:35 PM EDT) [facility] VITAMIN B1, WHOLE BLOOD 128 70 - 180 nmol/L 10/17/2024 1:55 PM EDT [facility] ([facility]) Blood Arterial blood specimen / Unknown Arterial Line / Unknown 10/14/2024 2:35 PM EDT 10/14/2024 2:50 PM EDT Narrative [facility] ([facility]) - 10/17/2024 1:55 PM EDT INTERPRETIVE INFORMATION: Vitamin B1, Whole Blood This assay measures the concentration of thiamine diphosphate (TDP), the primary active form of vitamin B1. Approximately 90 percent of vitamin B1 present in whole blood is TDP. Thiamine and thiamine monophosphate, which comprise the remaining 10 percent, are not measured. This test was developed and its performance characteristics determined by [facility]. It has not been cleared or approved by the [place] Food and Drug Administration. This test was performed in a CLIA certified laboratory and is intended for clinical purposes. Performed By: [facility] [address] [place] [id number] [employer]: Jasper Newsome MD, PhD CLIA Number: [id number] Aidan Harrison MD LAB BLOOD ORDERABLES Final Res ult Performing Organization Address City/[facility]/ZIP Co de Phone Number [facility] ([facility] [address] [place] [address] * (ABNORMAL) Blood gas panel with oximetry, mixed venous (10/14/2024 2:31 PM EDT) [facility] Signature pH, Mixed Venous 7.27(L) 7.32 - 7.43 LAB HEMATOLOGY METHOD 10/14/2024 2:45 PM EDT [facility] pCO2, Mixed Venous 41 37 - 52 mmHg LAB HEMATOLOGY METHOD 10/14/2024 2:45 PM EDT [facility] pO2, Mixed Venous 34 25 - 40 mmHg LAB HEMATOLOGY METHOD 10/14/2024 2:45 PM EDT [facility] SO2, Measured, Mixed Venous 57(L) 65 - 80 % LAB HEMATOLOGY METHOD 10/14/2024 2:45 PM EDT [facility] Bicarbonate, Calculated, Mixed Venous 19(L) 22 - 26 mmol/L LAB HEMATOLOGY METHOD 10/14/2024 2:45 PM EDT [facility] Base Excess, Mixed Venous -7.6(L) -2.0 - 3.0 mmol/L LAB HEMATOLOGY METHOD 10/14/2024 2:45 PM EDT [facility] Hematocrit, Whole Blood 24.7(L) 34.0 - 45.0 % LAB HEMATOLOGY METHOD 10/14/2024 2:45 PM EDT [facility] Sodium, Whole Blood 144 136 - 145 mmol/L LAB HEMATOLOGY METHOD 10/14/2024 2:45 PM EDT [facility] Potassium, Whole Blood 3.6 3.6 - 4.9 mmol/L LAB HEMATOLOGY METHOD 10/14/2024 2:45 PM EDT [facility] Chloride, Whole Blood 113(H) 97 - 107 mmol/L LAB HEMATOLOGY METHOD 10/14/2024 2:45 PM EDT [facility] Ionized Calcium, Whole Blood 4.6 4.6 - 5.1 mg/dL LAB HEMATOLOGY METHOD 10/14/2024 2:45 PM EDT [facility] Glucose, Whole Blood 110(H) 74 - 99 mg/dL LAB HEMATOLOGY METHOD 10/14/2024 2:45 PM EDT [facility] Oxyhemoglobin, Mixed Venous, Whole Blood 56.2 40.0 - 70.0 % LAB HEMATOLOGY METHOD 10/14/2024 2:45 PM EDT [facility] Hemoglobin Reduced, Mixed Venous, Whole Blood 41.8 % LAB HEMATOLOGY METHOD 10/14/2024 2:45 PM EDT [facility] Total Hemoglobin, Mixed Venous, Whole Blood 8.1(L) 11.2 - 15.7 g/dL LAB HEMATOLOGY METHOD 10/14/2024 2:45 PM EDT [facility] Blood Mixed venous blood specimen / Unknown Venipuncture / Unknown 10/14/2024 2:31 PM EDT 10/14/2024 2:43 PM EDT Aidan Harrison MD LAB BLOOD ORDERABLES Final Res ult Performing Organization Address [facility] Co de Phone Number [facility] [address] [place] [address] * Treponema Pallidum (Syphilis) Antibodies with Reflex to RPR and RPR Titer (Those with NO known Syphilis) (10/14/2024 9:44 AM EDT) Pathologist [facility] Syphilis Antibody (IgG+IgM) Nonreactive Nonreactive 10/14/2024 11:42 AM EDT [facility] Comment:Nonreactive. No sero logic evidence of syphilis. No follow-up necessary unless clinically indicated (e.g., early syphilis). Blood Venous blood specimen / Unknown Venipuncture / Unknown 10/14/2024 9:44 AM EDT 10/14/2024 10:25 AM EDT us Aidan Harrison MD LAB BLOOD ORDERABLES Final Res ult Performing Organization Address City/[facility]/ZIP Co de Phone Number [facility] [address] [place] [address] * (ABNORMAL) T3 (10/14/2024 9:44 AM EDT) Pathologist [facility] T3, Serum 47(L) 87 - 187 ng/dL 10/14/2024 11:57 PM EDT [facility] Blood Venous blood specimen / Unknown Venipuncture / Unknown 10/14/2024 9:44 AM EDT 10/14/2024 10:25 AM EDT us Aidan Harrison MD LAB BLOOD ORDERABLES Final Res ult [facility] [address] [place] [address] * LA CRITICAL CARE, E/M 30-74 MINUTES (10/14/2024 8:59 AM EDT) Narrative Aidan Harrison MD - 10/14/2024 8:59 AM EDT Aidan Harrison MD 10/15/2024 6:08 AM Critical Care Performed by: Aidan Harrison MD Authorized by: Aidan Harrison MD Critical care provider statement: Critical care time (minutes): 35 Critical care time was exclusive of: Teaching time and separately billable procedures and treating other patients Critical care was time spent personally by me on the following activities: Ordering and performing treatments and interventions, obtaining history from patient or surrogate, ordering and review of laboratory studies and examination of patient I assumed subsequent critical care for this patient from a provider in my division, on the same day: no Critical care statement: I saw and evaluated the patient with the resident/ fellow. I discussed the case with the resident/ fellow and agree with the findings and plan as documented. Aidan Harrison MD IN CLINIC/BEDSIDE ORDERABLES F inal Result * XR Chest 1 View (10/14/2024 7:59 AM EDT) Only the most recent of2 resultswithin the time period is included. Anatomical Region Laterality Modality Chest Digital Radiogra phy Impressions 10/14/2024 9:38 AM EDT No consolidations or other new interstitial/airspace disease seen. Stable exam CRITICAL RESULT: No. COMMUNICATION: Per this written report. By electronically signing this report, I, the attending physician, attest that I have personally reviewed the images/data for the above examination(s) and agree with the final edited report. Drafted by Escobar Rouse MD on 10/14/2024 9:14 AM Final report signed by Srikanth Colorado MD on 10/14/2024 9:38 AM Narrative 10/14/2024 9:38 AM EDT CLINICAL INDICATION: Increasing O2 requirements TECHNIQUE: XR CHEST 1 VIEW COMPARISON: Chest radiograph 10/13/2024 FINDINGS: Stable cardiomediastinal silhouettes. Left chest wall biventricular ICD, atrial appendage clip, and left internal jugular central venous catheter in stable position. No new focal consolidation seen. No pleural effusion. No pneumothorax. Procedure Note Srikanth Colorado MD - 10/14/2024 CLINICAL INDICATION: Increasing O2 requirements TECHNIQUE: XR CHEST 1 VIEW COMPARISON: Chest radiograph 10/13/2024 FINDINGS: Stable cardiomediastinal silhouettes. Left chest wall biventricular ICD,atrial appendage clip, and left internal jugular central venous catheterin stable position. No new focal consolidation seen. No pleural effusion.No pneumothorax. IMPRESSION: No consolidations or other new interstitial/airspace disease seen. Stableexam CRITICAL RESULT: No. COMMUNICATION: Per this written report. By electronically signing this report, I, the attending physician, attestthat I have personally reviewed the images/data for the aboveexamination(s) and agree with the final edited report. Drafted by Escobar Rouse MD on 10/14/2024 9:14 AM Final report signed by Srikanth Colorado MD on 10/14/2024 9:38 AM Aidan Harrison MD IMG XR PROCEDURES Final Result * (ABNORMAL) Blood gas panel, arterial (10/14/2024 7:52 AM EDT) pH, Arterial 7.32 7.31 - 7.42 LAB HEMATOLOGY METHOD 10/14/2024 7:58 AM EDT [facility] pCO2, Arterial 35 35 - 48 mmHg LAB HEMATOLOGY METHOD 10/14/2024 7:58 AM EDT [facility] pO2, Arterial 75(L) >80 mmHg LAB HEMATOLOGY METHOD 10/14/2024 7:58 AM EDT [facility] SO2, Measured, Arterial 96 94 - 98 % LAB HEMATOLOGY METHOD 10/14/2024 7:58 AM EDT [facility] Base Excess, Arterial -7.8(L) -2.0 - 3.0 mmol/L LAB HEMATOLOGY METHOD 10/14/2024 7:58 AM EDT [facility] Bicarbonate, Calculated, Arterial 18(L) 22 - 26 mmol/L LAB HEMATOLOGY METHOD 10/14/2024 7:58 AM EDT [facility] Hematocrit, Whole Blood 24.5(L) 34.0 - 45.0 % LAB HEMATOLOGY METHOD 10/14/2024 7:58 AM EDT [facility] Sodium, Whole Blood 142 136 - 145 mmol/L LAB HEMATOLOGY METHOD 10/14/2024 7:58 AM EDT [facility] Potassium, Whole Blood 3.9 3.6 - 4.9 mmol/L LAB HEMATOLOGY METHOD 10/14/2024 7:58 AM EDT [facility] Chloride, Whole Blood 114(H) 97 - 107 mmol/L LAB HEMATOLOGY METHOD 10/14/2024 7:58 AM EDT [facility] Glucose, Whole Blood 100(H) 74 - 99 mg/dL LAB HEMATOLOGY METHOD 10/14/2024 7:58 AM EDT [facility] Ionized Calcium, Whole Blood 4.5(L) 4.6 - 5.1 mg/dL LAB HEMATOLOGY METHOD 10/14/2024 7:58 AM EDT [facility] Lactate, Arterial, Whole Blood 0.7 0.5 - 1.6 mmol/L LAB HEMATOLOGY METHOD 10/14/2024 7:58 AM EDT [facility] Blood Arterial blood specimen / Unknown Arterial Puncture / Unknown 10/14/2024 7:52 AM EDT 10/14/2024 7:55 AM EDT us Aidan Harrison MD LAB BLOOD ORDERABLES Final Res ult [facility] [address] [place] [address] * (ABNORMAL) BETA HYDROXYBUTYRIC ACID (10/14/2024 6:25 AM EDT) Beta-Hydroxybu tyric Acid, Plasma 1.36(H) <=0.27 mmol/L 10/14/2024 7:30 AM EDT [facility] Blood Venous blood specimen / Unknown Venipuncture / Unknown 10/14/2024 6:25 AM EDT 10/14/2024 6:33 AM EDT us Aidan Harrison MD LAB BLOOD ORDERABLES Final Res ult Performing Organization Address City/[facility]/ZIP Co de Phone Number [facility] [address] [place] [address] * TSH (10/14/2024 6:25 AM EDT) Thyroid Stimulating Hormone, Plasma 2.89 0.40 - 4.20 uIU/mL 10/14/2024 2:24 PM EDT [facility] Blood Venous blood specimen / Unknown Venipuncture / Unknown 10/14/2024 6:25 AM EDT 10/14/2024 6:33 AM EDT Aidan Harrison MD LAB BLOOD ORDERABLES Final Res ult Performing Organization Address [facility] [place] [place] [address] * T4, free (10/14/2024 6:25 AM EDT) Free T4, Plasma 1.6 0.8 - 1.7 ng/dL 10/14/2024 2:24 PM EDT [facility] Blood Venous blood specimen / Unknown Venipuncture / Unknown 10/14/2024 6:25 AM EDT 10/14/2024 6:33 AM EDT Aidan Harrison MD LAB BLOOD ORDERABLES Final Res ult Performing Organization Address City/[facility]/ZIP Co de Phone Number [facility] [address] [place] [address] * Ionized calcium, serum (10/14/2024 12:22 AM EDT) Ionized Calcium, Serum 4.8 4.6 - 5.3 mg/dL LAB HEMATOLOGY METHOD 10/14/2024 12:56 AM EDT [facility] Blood Venous blood specimen / Unknown Venipuncture / Unknown 10/14/2024 12:22 AM EDT 10/14/2024 12:34 AM EDT Kasey Win MD LAB BLOOD ORDERABLES Final Res ult [facility] [address] [place] [address] * XR Hand Right 3+ Views (10/13/2024 6:57 PM EDT) Anatomical Region Laterality Modality Upper Extremities, Hand Right Digital Radiography Impressions 10/14/2024 7:56 AM EDT Within limitations no acute displaced fracture. CRITICAL RESULT: No. COMMUNICATION: Per this written report. Drafted by Thomas Kunz MD on 10/14/2024 7:56 AM Final report signed by Thomas Kunz MD on 10/14/2024 7:56 AM Narrative 10/14/2024 7:56 AM EDT CLINICAL INDICATION: pain on tertiary exam TECHNIQUE: XR HAND RIGHT 3+ VIEWS COMPARISON: None. FINDINGS: Mild degenerative changes at the thumb CMC joint. Interphalangeal joint space narrowing is seen throughout. There is likely some soft tissue swelling of the index and middle fingers. No acute displaced fracture. Evaluation is limited of the phalanges on lateral view secondary to overlap. Bandage is seen overlying the dorsal hand. Procedure Note Thomas Kunz MD - 10/14/2024 CLINICAL INDICATION: pain on tertiary exam TECHNIQUE: XR HAND RIGHT 3+ VIEWS COMPARISON: None. FINDINGS: Mild degenerative changes at the thumb CMC joint. Interphalangeal jointspace narrowing is seen throughout. There is likely some soft tissueswelling of the index and middle fingers. No acute displaced fracture.Evaluation is limited of the phalanges on lateral view secondary tooverlap. Bandage is seen overlying the dorsal hand. IMPRESSION: Within limitations no acute displaced fracture. CRITICAL RESULT: No. COMMUNICATION: Per this written report. Drafted by Thomas Kunz MD on 10/14/2024 7:56 AM Final report signed by Thomas Kunz MD on 10/14/2024 7:56 AM Dariela Potter ASSISTANT CHILD CARE TEACHER IMG XR PROCEDURES Final Re sult * CT Head wo IV Contrast (10/13/2024 5:01 PM EDT) Anatomical Region Laterality Modality Head Computed Tomogra phy Impressions 10/14/2024 2:18 AM EDT 1. No acute intracranial abnormality. 2. 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 3. Small chronic appearing cerebellar infarcts. CRITICAL RESULT: No. COMMUNICATION: Per this written report. Preliminary report signed by Glen Pinto MD on 10/13/2024 7:00 PM By electronically signing this report, I, the attending physician, attest that I have personally reviewed the images/data for the above examination(s) and agree with the final edited report. Drafted by Glen Pinto MD on 10/13/2024 6:52 PM Final report signed by Donald Lemos MD on 10/14/2024 2:18 AM Narrative 10/14/2024 2:18 AM EDT CLINICAL INDICATION: Mental status change, unknown cause TECHNIQUE: Spiral axial CT images of the head were obtained without contrast administration. Total DLP (Dose-Length Product): 710.20 mGy.cm. Please note: The reported value represents the total of one or more individual components during the CT acquisition on this date and at this time, and as such, the same value may appear in more than one CT report depending on the interpreting/reporting physicians. COMPARISON: None. FINDINGS: Diagnostic Quality: Adequate. The ventricles and sulci are normal in size. Encephalomalacia/gliosis predominantly in the left occipital and left frontal regions which are in a parasagittal distribution along the arterial border zones. Small chronic appearing bilateral cerebellar infarcts. There is no acute large cortical infarct, intracranial hemorrhage or large mass on this noncontrast study. Soft Tissues: No significant soft tissue swelling is present. Skull: There are no calvarial destructive lesions or fractures. Sinuses and Mastoids: Opacified and atelectatic maxillary sinuses bilaterally. The mastoid air cells are clear. Procedure Note Donald Lemos MD - 10/14/2024 CLINICAL INDICATION: Mental status change, unknown cause TECHNIQUE: Spiral axial CT images of the head were obtained without contrastadministration. Total DLP (Dose-Length Product): 710.20 mGy.cm. Please note: The reportedvalue represents the total of one or more individual components during theCT acquisition on this date and at this time, and as such, the same valuemay appear in more than one CT report depending on theinterpreting/reporting physicians. COMPARISON: None. FINDINGS: Diagnostic Quality: Adequate. The ventricles and sulci are normal in size. Encephalomalacia/gliosispredominantly in the left occipital and left frontal regions which are ivette parasagittal distribution along the arterial border zones. Small chronicappearing bilateral cerebellar infarcts. There is no acute large cortical infarct, intracranial hemorrhage or largemass on this noncontrast study. Soft Tissues: No significant soft tissue swelling is present. Skull: There are no calvarial destructive lesions or fractures. Sinuses and Mastoids: Opacified and atelectatic maxillary sinusesbilaterally. The mastoid air cells are clear. IMPRESSION: 1.No acute intracranial abnormality. 2.Old arterial border zone infarcts in the left cerebral hemispherepossibly related to watershed infarcts or emboli. 3.Small chronic appearing cerebellar infarcts. CRITICAL RESULT: No. COMMUNICATION: Per this written report. Preliminary report signed by Glen Pinto MD on 10/13/2024 7:00 PM By electronically signing this report, I, the attending physician, attestthat I have personally reviewed the images/data for the aboveexamination(s) and agree with the final edited report. Drafted by Glen Pinto MD on 10/13/2024 6:52 PM Final report signed by Donald Lemos MD on 10/14/2024 2:18 AM Aidan Harrison MD IM CT PROCEDURES Final Result * (ABNORMAL) Troponin T, High Sensitivity, 2 Hour, Plasma (10/13/2024 9:40 AM EDT) Troponin T, High Sensitivity, 2 Hour 38(H) <14 ng/L 10/13/2024 10:18 AM EDT [facility] Troponin Delta 2 <10 ng/L 10/13/2024 10:18 AM EDT [facility] Troponin Delta Interpretation Not Significant 10/13/2024 10:18 AM EDT [facility] Comment:Not Significant. No acute change in troponin observed between the baseline and 2 hour samples. Blood Arterial blood specimen / Unknown Arterial Line / Unknown 10/13/2024 9:40 AM EDT 10/13/2024 9:50 AM EDT us Cat Jamison MD LAB BLOOD ORDERABLES Final Result [facility] [address] [place] [address] * LA INSERT NON-TUNNEL CV CATH, HC INSERT NON-TUNNEL CV CATH, CVC TRIPLE LUMEN (SMARTFORM LINK) (10/13/2024 9:26 AM EDT) Narrative Aidan Harrison MD - 10/13/2024 9:26 AM EDT Aidan Harrison MD 10/13/2024 3:36 PM Central Line Performed by: Jada Lazaro MD Authorized by: Aidan Harrison MD Consent: Consent obtained: Verbal Consent given by: Patient Risks, benefits, and alternatives were discussed: yes Alternatives discussed: No treatment [place] protocol: Procedure explained and questions answered to patient or proxy's satisfaction: yes Relevant documents present and verified: yes Test results available: yes Imaging studies available: yes Required blood products, implants, devices, and special equipment available: yes Site/side marked: yes Immediately prior to procedure, a time out was called: yes Patient identity confirmed: Arm band and hospital-assigned identification number Attending Supervision?: yes Pre-procedure details: Indication(s): central venous access Hand hygiene: Hand hygiene performed prior to insertion Sterile barrier technique: All elements of maximal sterile technique followed Skin preparation: Chlorhexidine Skin preparation agent: Skin preparation agent completely dried prior to procedure Sedation: Sedation type: None Anesthesia: Anesthesia method: Local infiltration Local anesthetic: Lidocaine 1% w/o epi Procedure details: Location: L internal jugular Patient position: Supine Procedural supplies: Triple lumen Landmarks identified: yes Ultrasound guidance: yes Ultrasound guidance timing: real time Sterile ultrasound techniques: Sterile gel and sterile probe covers were used Number of attempts: 2 Successful placement: yes Post-procedure details: Post-procedure: Dressing applied and line sutured Assessment: Blood return through all ports, free fluid flow and no pneumothorax on x-ray Procedure completion: Tolerated well, no immediate complications us Aidan Harrison MD IN CLINIC/BEDSIDE ORDERABLES F inal Result * LA INSERT CATH,ART,PERCUT,SHORTTERM, HC INSERT CATH,ART,PERCUT,SHORTTERM (10/13/2024 9:09 AM EDT) Narrative Aidan Harrison MD - 10/13/2024 9:09 AM EDT Aidan Harrison MD 10/13/2024 3:36 PM Arterial line Performed by: Erickson Gr DO Authorized by: Aidan Harrison MD Consent: Consent obtained: Emergent situation Consent given by: Patient Risks, benefits, and alternatives were discussed: yes Risks discussed: Bleeding, infection, ischemia, repeat procedure and pain [place] protocol: Procedure explained and questions answered to patient or proxy's satisfaction: yes Relevant documents present and verified: yes Test results available: yes Imaging studies available: yes Required blood products, implants, devices, and special equipment available: yes Site/side marked: yes Immediately prior to procedure, a time out was called: yes Patient identity confirmed: Arm band and verbally with patient Attending Supervision?: yes Indications: Indications: hemodynamic monitoring Pre-procedure details: Skin preparation: Chlorhexidine Preparation: Patient was prepped and draped in sterile fashion Sedation: Sedation type: None Anesthesia: Anesthesia method: Local infiltration Local anesthetic: Lidocaine 1% w/o epi Procedure details: Location: right axillary. Needle gauge: 22 G Placement technique: Seldinger and ultrasound guided Number of attempts: 1 Transducer: waveform confirmed Post-procedure details: Post-procedure: Wrist guard applied CMS: Normal Procedure completion: Tolerated us Aidan Harrison MD IV THERAPY ORDERABLES Final Re sult * ECHO, ADULT TRANSTHORACIC COMPLETE W/ 3D (10/13/2024 7:17 AM EDT) Height 154.9 [facility] Weight 60.3 [facility] BSA 1.59 m2 [facility] LV V1 VTI 13.7 cm [facility] MV E Vmax 144.5 cm/s [facility] TR Vmax 245.4 cm/s [facility] PA V2 VTI 16.8 cm [facility] RV s' Admien 7.9 cm/s [facility] TAPSE 13 mm [facility] RV OLI 10.1 cm2 [facility] RV DOLORES 8.4 cm2 [facility] RV FAC_phl 17 % [facility]U [facility]SC[facility] TR Max PG 24 mmHG [facility] LV V1 Vmax 73.3 cm/s [facility] Ao V2 VTI 22.3 cm [facility] Ao mean PG 3 mmHg [facility] Ao V2 Vmax 116.5 cm/s [facility] Ao max PG 5 mmHg [facility] AV VTI Index 0.61 [facility] MV V2 VTI 39.6 cm [facility]US [facility]SC[facility] MV MG 5 mmHg [facility] MV V2 max 164.0 cm/s [facility] MV max PG 11 mmHg [facility] MV dec slope 1,203 cm/s2 [facility] MV dec time 340 ms [facility] MV P1/2t 99 ms [facility] MVA(P1/2t) 2.2 cm2 [facility] PA MG 2 mmHg [facility] PA V2 Vmax 89.8 cm/s [facility] PA PG 3 mmHg [facility] LV mean PG 1.3 mmHG [facility] LV V1 mean 46.3 cm/sec [facility] LV max PG 2.2 mmHg [facility] AV-pr VR 0.6 [facility] Ao V2 mean 80.2 cm/s [facility] IVSd 9 mm [facility] LVIDd 51 mm [facility] LVPWd 11 mm [facility] LV MASS(C)D 187 g JESUS ISCV [facility] CV ECHO LV MASS INDEX 118 g/m2 [facility] LV RWT 0.39 mm [facility] Ao Root Diam 26 mm [facility] LVIDs 50 mm [facility] LA dimension 38 mm [facility] LVOT diam 20 mm [facility] LVOT AREA 3.1 cm2 [facility] SV(LVOT) 43 mL [facility] RICHA(I,D) 1.9 cm2 [facility] RICHA(VTI)/BSA_ph l 1.2 cm2/m2 [facility] LAV(MOD-4ch) 71 mL [facility] RA MOD 4Ch 19 mL [facility] TAMIKO 12 mL/m2 [facility] RV base 34 mm [facility] LV EDV(MOD-4ch) 60 mL [facility] LV ESV(MOD4ch) 42 mL [facility] EF(MOD-sp4) 30 % [facility] LAV(MOD-bp) Indexed 44 mL/m2 [facility] LAV(MOD-2ch) 68 mL [facility] LV EDV(MOD-2ch) 67 mL J[facility]SCV EDV(MOD-bp) 64 mL [facility] LV ESV(MOD2ch) 45 mL [facility]SC[facility] EF(MOD-sp2) 33 % [facility] ESV(MOD-bp) 44 mL [facility] EF(MOD-bp) 31 % [facility] LVLs ap2 5.7 mm [facility] RVSP 27 mmHg [facility] RAP systole 3 mmHg [facility] Anatomical Region Laterality Modality Echocardiography Narrative 10/13/2024 8:06 AM EDT Left Ventricle: The left ventricle is normal size. There is concentric remodeling. The left ventricular systolic function is mildly reduced. The LVEF is visually estimated at 40 - 45%. Right Ventricle: The right ventricle is normal in size. A catheter/lead is present in the right ventricle. The right ventricular systolic function is mildly reduced. Mitral Valve: There is a bioprosthetic mitral valve. Doppler evidence of regurgitation is normal for this prosthetic mitral valve. There is no mitral stenosis. The mean mitral valve pressure gradient is estimated to be 5 mmHg at a heart rate of 80 bpm. The gradient is normal for this prosthetic valve. Pericardium: No pericardial effusion. There is no recent study available for direct [id number] comparison. Left Ventricle The left ventricle is normal size. There is concentric remodeling. The left ventricular systolic function is mildly reduced. The LVEF is visually estimated at 40 - 45%. Unable to assess diastolic function due to mitral valve surgery. There is global hypokinesis of the left ventricle. The septal motion is most consistent with a conduction abnormality. Right Ventricle The right ventricle is normal in size. A catheter/lead is present in the right ventricle. The right ventricular systolic function is mildly reduced. Right ventricular systolic pressure is normal (<35mmHg). Left Atrium The left atrial size is moderately increased with an indexed volume of 42-48 mL/m2. The interatrial septum is intact with no evidence for an atrial septal defect. Right Atrium The right atrial volume index is normal (18-32mL/m2). IVC/SVC Based on the IVC size and respiratory variation, the estimated right atrial pressure is 8mmHg. Mitral Valve There is a bioprosthetic mitral valve. Doppler evidence of regurgitation is normal for this prosthetic mitral valve. There is no mitral stenosis. The mean mitral valve pressure gradient is estimated to be 5 mmHg at a heart rate of 80 bpm. The gradient is normal for this prosthetic valve. Tricuspid Valve There is malcoaptation of the tricuspid valve leaflets due to restricted closure created by the pacing wire. There is mild to moderate tricuspid regurgitation. There is no tricuspid stenosis. Aortic Valve The aortic valve appears to be trileaflet. There is no valvular regurgitation. There is no hemodynamically significant valvular aortic stenosis. Pulmonic Valve The pulmonic valve is normal in appearance. There is no pulmonic regurgitation. There is no pulmonic stenosis. Pericardium No pericardial effusion. Great Vessels The aortic root is normal in size. The main pulmonary artery is normal in size. Study Details A complete transthoracic echocardiogram using two-dimensional (2D), m-mode, color and spectral flow Doppler imaging was performed. Height: 154.9 cm. Weight: 60.3 kg. BSA: 1.59 m2. Study Recommendation There is no recent study available for direct [id number] comparison. Cat Jamison MD CV ECHO PROCEDURES Final R esult * Lactate, venous (10/13/2024 6:35 AM EDT) Lactate, Venous, Whole Blood 0.8 0.5 - 2.2 mmol/L LAB HEMATOLOGY METHOD 10/13/2024 6:40 AM EDT [facility] Blood Venous blood specimen / Unknown Venipuncture / Unknown 10/13/2024 6:35 AM EDT 10/13/2024 6:39 AM EDT Result [facility] Kasey Win MD LAB BLOOD ORDERABLES Final Res ult Performing Organization Address City/State/[facility] Co de Phone Number [facility] [address] [place] [address] * Blood Culture (Aerobic/Anaerobet Set) (10/13/2024 6:35 AM EDT) Culture No growth at day 5 LANA 10/18/2024 8:02 AM EDT [facility] Blood Venous blood specimen / Unknown Venipuncture / Unknown 10/13/2024 6:35 AM EDT 10/13/2024 7:18 AM EDT Kasey Win MD LAB MICROBIOLOGY - GENERAL ORD ERABLES Final Result Performing Organization Address City/State/[facility] de Phone Number [facility] [address] [place] [address] * Urine Rao Panel (10/13/2024 6:08 AM EDT) Extra Reflex urine culture not indicated 10/13/2024 8:02 AM EDT [facility] Urine Urine specimen obtained by clean catch procedure / Unknown Non-blood Collection / Unknown 10/13/2024 6:08 AM EDT 10/13/2024 6:33 AM EDT Kasey Win MD LAB URINE ORDERABLES Final Res ult Performing Organization Address [facility] de Phone Number [facility] [address] [place] [address] * Urinalysis Microscopic Examination (10/13/2024 6:08 AM EDT) Urine Urine specimen obtained by clean catch procedure / Unknown Non-blood Collection / Unknown 10/13/2024 6:08 AM EDT 10/13/2024 6:21 AM EDT Kasey Win MD LAB URINE ORDERABLES Final Res ult Performing Organization Address [facility] de Phone Number [facility] [address] [place] [address] * (ABNORMAL) Urinalysis with reflex microscopic (Culture NOT Included) (10/13/2024 6:08 AM EDT) Only the most recent of2 resultswithin the time period is included. Color, Urine Yellow LAB URINALYSIS - AUTOMATED METHOD 10/13/2024 7:07 AM EDT [facility] Clarity, Urine Clear LAB URINALYSIS - AUTOMATED METHOD 10/13/2024 7:07 AM EDT [facility] Spec [place], Urine 1.016 1.005 - 1.030 LAB URINALYSIS - AUTOMATED METHOD 10/13/2024 7:07 AM EDT [facility] pH, Urine 6.5 5.0 - 8.0 LAB URINALYSIS - AUTOMATED METHOD 10/13/2024 7:07 AM EDT [facility] Protein, Urine Trace(A) Negative mg/dL LAB URINALYSIS - AUTOMATED METHOD 10/13/2024 7:07 AM EDT [facility] Glucose, Urine Negative Negative mg/dL LAB URINALYSIS - AUTOMATED METHOD 10/13/2024 7:07 AM EDT [facility] Ketones, Urine Negative Negative mg/dL LAB URINALYSIS - AUTOMATED METHOD 10/13/2024 7:07 AM EDT [facility] Blood, Urine Negative Negative LAB URINALYSIS - AUTOMATED METHOD 10/13/2024 7:07 AM EDT [facility] Bilirubin, Urine Negative Negative LAB URINALYSIS - AUTOMATED METHOD 10/13/2024 7:07 AM EDT [facility] Urobilinogen, Urine 0.2 0.2 to 1.0 mg/dL LAB URINALYSIS - AUTOMATED METHOD 10/13/2024 7:07 AM EDT [facility] Leukocytes, Urine Small(A) Negative LAB URINALYSIS - AUTOMATED METHOD 10/13/2024 7:07 AM EDT [facility] Nitrite, Urine Negative Negative LAB URINALYSIS - AUTOMATED METHOD 10/13/2024 7:07 AM EDT [facility] RBC, Urine <1 0 to 3 /HPF LAB URINALYSIS - AUTOMATED METHOD 10/13/2024 7:07 AM EDT [facility] WBC, Urine 6 - 10(A) 0 to 5 /HPF LAB URINALYSIS - AUTOMATED METHOD 10/13/2024 7:07 AM EDT [facility] Squamous Epithelial Cells 0 - 2 0 to 5 /HPF LAB URINALYSIS - AUTOMATED METHOD 10/13/2024 7:07 AM EDT [facility] Hyaline Casts 0 - 2 0 to 5 /LPF LAB URINALYSIS - AUTOMATED METHOD 10/13/2024 7:07 AM EDT [facility] Bacteria, Urine Negative Negative LAB URINALYSIS - AUTOMATED METHOD 10/13/2024 7:07 AM T [facility] Urine Urine specimen obtained by clean catch procedure / Unknown Non-blood Collection / Unknown 10/13/2024 6:08 AM EDT 10/13/2024 6:21 AM EDT us Kasey Win MD LAB URINE ORDERABLES Final Res ult Performing Organization Address [facility]/ZIP Co de Phone Number [facility] [address] [place] [address] * Viv auris Surveillance by PCR (10/13/2024 6:05 AM EDT) Viv auris PCR Result Not Detected Not Detected 10/13/2024 12:[address] [facility] Swab (Axilla and Groin) Non-blood Collection / Unknown 10/13/2024 6:05 AM EDT 10/13/2024 6:31 AM EDT Narrative [facility] - 10/13/2024 12:18 PM EDT This PCR assay was developed and its performance characteristics determined by [facility] as appropriate for clinical purposes. This assay has not been cleared or approved by the FDA, but is performed in a CLIA regulated laboratory that is qualified to perform high-complexity testing. Kasey Win MD LAB MICROBIOLOGY - GENERAL ORD ERABLES Final Result Performing Organization Address [facility] Co de Phone Number [facility] [address] [place] [address] * (ABNORMAL) Multi Drug Resistance Test (10/13/2024 6:05 AM EDT) Pathologist [facility] Culture Klebsiella pneumoniae ESBL(AA) LANA 10/17/2024 11:[address] [facility] Comment: The organism value for this result has been updated. These results have been appended to the previously preliminary verified report. The organism value for this result has been updated. These results have been appended to the previously preliminary verified report. Swab (Nares and Rachel Rectal) Non-blood Collection / Unknown 10/13/2024 6:05 AM EDT 10/13/2024 6:31 AM EDT Narrative [facility] - 10/17/2024 11:07 AM EDT This test was developed and its performance characteristics determined by the [facility]. Although the media is FDA-approved, it is not FDA-approved for all specimen types submitted. The FDA has determined that such clearance or approval is not necessary. This test is used for surveillance purposes. It should not be regarded as investigational or for research. The [facility] is certified under the Clinical Laboratory Improvement Amendments of 1988 (CLIA-88) as qualified to perform high complexity clinical laboratory testing. Organism Antibiotic Method Susceptibility Klebsiella pneumoniae ESBL Ampicillin LANA >16 ug/ml: Resistant Klebsiella pneumoniae ESBL Ampicillin/Sulbactam LANA >16/8 ug/ml: Resistant Klebsiella pneumoniae ESBL Aztreonam LANA >16 ug/ml: Resistant Klebsiella pneumoniae ESBL Cefazolin LANA >16 ug/ml: Resistant Klebsiella pneumoniae ESBL Cefepime LANA 16 ug/ml: Resistant Klebsiella pneumoniae ESBL Ceftriaxone LANA >32 ug/ml: Resistant Klebsiella pneumoniae ESBL Ciprofloxacin LANA 1 ug/ml: Resistant Klebsiella pneumoniae ESBL Ertapenem LANA <=0.25 ug/ml: Susceptible Klebsiella pneumoniae ESBL Gentamicin LANA <=2 ug/ml: Susceptible Klebsiella pneumoniae ESBL Levofloxacin LANA 1 ug/ml: Intermediate Klebsiella pneumoniae ESBL Meropenem LANA <=0.5 ug/ml: Susceptible Klebsiella pneumoniae ESBL Piperacillin/Tazobactam LANA 4/4 ug/ml: Resistant Klebsiella pneumoniae ESBL Tetracycline LANA <=2 ug/ml: Susceptible Klebsiella pneumoniae ESBL Tobramycin LANA <=2 ug/ml: Susceptible Klebsiella pneumoniae ESBL Trimethoprim/Sulfamethoxazo le LANA >2/38 ug/ml: Resistant us Kasey Win MD LAB MICROBIOLOGY - GENERAL ORD ERABLES Final Result [facility] [address] [place] [address] * Methicillin Resistant Staphylococcus aureus (MRSA) by PCR (10/13/2024 6:05 AM EDT) Methicillin Resistant Staphylococcus aureus (MRSA) by PCR Not Detected Not Detected 10/13/2024 9:07 AM EDT [facility] Swab Both anterior nares / Unknown Non-blood Collection / Unknown 10/13/2024 6:05 AM EDT 10/13/2024 7:18 AM EDT Narrative [facility] - 10/13/2024 9:07 AM EDT This test is FDA approved for use with nares swab specimens using the eSwabs. This test is used for clinical purposes. It should not be regarded as investigational or for research. This laboratory is certified under the Clinical Laboratory improvement Amendments of 1988 (CLIA-88 as qualified to perform high complexity clinical laboratory testing. us Kasey Win MD LAB MICROBIOLOGY - GENERAL ORD ERABLES Final Result Performing Organization Address [facility]/[place] [address] * (ABNORMAL) Troponin T, High Sensitivity, 0 Hour Plasma, Reflex to 2 Hour (10/13/2024 5:18 AM EDT) Troponin T, High Sensitivity, 0 Hour 36(H) <14 ng/L 10/13/2024 6:21 AM EDT [facility] Blood Venous blood specimen / Unknown Venipuncture / Unknown 10/13/2024 5:18 AM EDT 10/13/2024 5:24 AM EDT Cat Jamison MD LAB BLOOD ORDERABLES Final Result Performing Organization Address [facility] [place] [place] [address] * (ABNORMAL) N-Terminal Probnp (10/13/2024 5:18 AM EDT) N-Terminal, PROBNP, Plasma 1,081(H) 0 - 899 pg/mL 10/13/2024 6:21 AM EDT [facility] Blood Venous blood specimen / Unknown Venipuncture / Unknown 10/13/2024 5:18 AM EDT 10/13/2024 5:24 AM EDT us Kasey Win MD LAB BLOOD ORDERABLES Final Res ult Performing Organization Address City/[facility]/[place] [address] * CT Bony Pelvis (10/13/2024 3:57 AM EDT) Anatomical Region Laterality Modality Pelvis Computed Tomogra phy Impressions 10/13/2024 4:55 AM EDT Acute minimally displaced fracture of the right inferior pubic ramus. Acute minimally displaced fracture of the right iliac wing with the fracture line coursing medially and posteriorly. No intra-articular involvement. CRITICAL RESULT: No. COMMUNICATION: Per this written report. Preliminary report signed by Nathanael Gillespie MD on 10/13/2024 4:10 AM By electronically signing this report, I, the attending physician, attest that I have personally reviewed the images/data for the above examination(s) and agree with the final edited report. Drafted by Nathanael Gillespie MD on 10/13/2024 4:03 AM Final report signed by Randall Johnston MD on 10/13/2024 4:55 AM Narrative 10/13/2024 4:55 AM EDT CLINICAL INDICATION: pubic rami fracture TECHNIQUE: Multiple axial CT images were obtained through level of pelvis per CT Bony Pelvis protocol. The axial CT data set was used to generate high resolution reformatted images in the coronal and sagittal planes to facilitate diagnostic accuracy and treatment planning. Total DLP (Dose-Length Product): 358.30 mGy.cm. Please note: The reported value represents the total of one or more individual components during the CT acquisition on this date and at this time, and as such, the same value may appear in more than one CT report depending on the interpreting/reporting physicians. COMPARISON: None. FINDINGS: Acute minimally displaced fracture of the right inferior pubic ramus. Acute minimally displaced fracture of the right iliac wing with the fracture line coursing medially and posteriorly. Bilateral femoral acetabular joints are intact. Bilateral sacroiliac joints are intact. Procedure Note Randall Johnston MD - 10/13/2024 CLINICAL INDICATION: pubic rami fracture TECHNIQUE: Multiple axial CT images were obtained through level of pelvis per CT BonyPelvis protocol. The axial CT data set was used to generate highresolution reformatted images in the coronal and sagittal planes tofacilitate diagnostic accuracy and treatment planning. Total DLP (Dose-Length Product): 358.30 mGy.cm. Please note: The reportedvalue represents the total of one or more individual components during theCT acquisition on this date and at this time, and as such, the same valuemay appear in more than one CT report depending on theinterpreting/reporting physicians. COMPARISON: None. FINDINGS: Acute minimally displaced fracture of the right inferior pubic ramus.Acute minimally displaced fracture of the right iliac wing with thefracture line coursing medially and posteriorly. Bilateral femoralacetabular joints are intact. Bilateral sacroiliac joints are intact. IMPRESSION: Acute minimally displaced fracture of the right inferior pubic ramus. Acute minimally displaced fracture of the right iliac wing with thefracture line coursing medially and posteriorly. No intra-articularinvolvement. CRITICAL RESULT: No. COMMUNICATION: Per this written report. Preliminary report signed by Nathanael Gillespie MD on 10/13/2024 4:10 AM By electronically signing this report, I, the attending physician, attestthat I have personally reviewed the images/data for the aboveexamination(s) and agree with the final edited report. Drafted by Nathanael Gillespie MD on 10/13/2024 4:03 AM Final report signed by Randall Johnston MD on 10/13/2024 4:55 AM us Cat Jamison MD IMG CT PROCEDURES Final Re sult * (ABNORMAL) Hemoglobin A1c (10/13/2024 3:44 AM EDT) Hemoglobin A1c 6.6(H) <5.7 % 10/13/2024 12:54 PM EDT [facility] Blood Venous blood specimen / Unknown Venipuncture / Unknown 10/13/2024 3:44 AM EDT 10/13/2024 3:46 AM EDT Narrative [facility] - 10/13/2024 12:54 PM EDT HA1C Interpretive Data: Diagnosis of Diabetes: Diabetic > or = 6.5% Pre-diabetic 5.7 to 6.4% Non-diabetic < or = 5.6% Glycemic Targets for Type I and Type II Diabetics: Non- Adults <7.0% Adults <6.0% Children and Adolescents <7.5% Source: [place] [employer]. Standards of medical care in diabetes,2017. Diabetes Care.2017:40 (suppl 1):S1-S135. us Kasey Win MD LAB BLOOD ORDERABLES Final Res ult [facility] [address] [place] [address] * (ABNORMAL) Blood gas, venous (10/13/2024 3:44 AM EDT) pH, Venous 7.29(L) 7.32 - 7.43 LAB HEMATOLOGY METHOD 10/13/2024 3:55 AM EDT [facility] pCO2, Venous 37 37 - 52 mmHg LAB HEMATOLOGY METHOD 10/13/2024 3:55 AM EDT [facility] pO2, Venous 26 25 - 40 mmHg LAB HEMATOLOGY METHOD 10/13/2024 3:55 AM EDT [facility] SO2, Measured, Venous 44(L) 65 - 80 % LAB HEMATOLOGY METHOD 10/13/2024 3:55 AM EDT [facility] Base Excess, Venous -8.5(L) -2.0 - 3.0 mmol/L LAB HEMATOLOGY METHOD 10/13/2024 3:55 AM EDT [facility] Bicarbonate, Calculated, Venous 17(L) 22 - 26 mmol/L LAB HEMATOLOGY METHOD 10/13/2024 3:55 AM EDT [facility] Hematocrit, Whole Blood 29.1(L) 34.0 - 45.0 % LAB HEMATOLOGY METHOD 10/13/2024 3:55 AM EDT [facility] Sodium, Whole Blood 134(L) 136 - 145 mmol/L LAB HEMATOLOGY METHOD 10/13/2024 3:55 AM EDT [facility] Potassium, Whole Blood 4.3 3.6 - 4.9 mmol/L LAB HEMATOLOGY METHOD 10/13/2024 3:55 AM EDT [facility] Chloride, Whole Blood 107 97 - 107 mmol/L LAB HEMATOLOGY METHOD 10/13/2024 3:55 AM EDT [facility] Glucose, Whole Blood 112(H) 74 - 99 mg/dL LAB HEMATOLOGY METHOD 10/13/2024 3:55 AM EDT [facility] Lactate, Venous, Whole Blood 1.2 0.5 - 2.2 mmol/L LAB HEMATOLOGY METHOD 10/13/2024 3:55 AM EDT [facility] Ionized Calcium, Whole Blood 4.8 4.6 - 5.1 mg/dL LAB HEMATOLOGY METHOD 10/13/2024 3:55 AM EDT [facility] Blood Venous blood specimen / Unknown Venipuncture / Unknown 10/13/2024 3:44 AM EDT 10/13/2024 3:53 AM EDT us Derik Renae MD LAB BLOOD ORDERABLES Final Resu lt Performing Organization Address City/State/[facility] Co de Phone Number [facility] [address] [place] [address] * Drug Abuse Screen, Urine (10/12/2024 11:56 PM EDT) Amphetamine Screen Urine Negative Cutoff: 500 ng/mL 10/13/2024 12:45 AM EDT [facility] Benzodiazepines Screen Urine Negative Cutoff: 200 ng/mL 10/13/2024 12:45 AM EDT [facility] Cannabinoid Screen Urine Negative Cutoff: 50 ng/mL 10/13/2024 12:45 AM EDT [facility] Cocaine Screen Urine Negative Cutoff: 300 ng/mL 10/13/2024 12:45 AM EDT [facility] Barbiturate Screen Urine Negative Cutoff: 200 ng/mL 10/13/2024 12:45 AM EDT [facility] Opiate Screen Urine Negative Cutoff: 300 ng/mL 10/13/2024 12:45 AM EDT [facility] Methadone Screen Urine Negative Cutoff: 300 ng/mL 10/13/2024 12:45 AM EDT [facility] Buprenorphine Screen Urine Negative Cutoff: 10 ng/mL 10/13/2024 12:45 AM EDT [facility] Fentanyl Screen Urine Negative Cutoff: 1 ng/mL 10/13/2024 12:45 AM EDT [facility] Oxycodone Screen Urine Negative Cutoff: 100 ng/mL 10/13/2024 12:45 AM EDT [facility] Urine Urine specimen obtained by clean catch procedure / Unknown Non-blood Collection / Unknown 10/12/2024 11:56 PM EDT 10/13/2024 12:13 AM EDT us Cat Jamison MD LAB URINE ORDERABLES Final Result Performing Organization Address City/State/[facility] Co de Phone Number [facility] [address] [place] [address] * (ABNORMAL) Anti Xa Level Low Molecular Weight (10/12/2024 11:56 PM EDT) Anti Xa Level Low Molecular Weight Heparin >2.00(HH) <2.00 IU/mL 10/13/2024 1:[address] [facility] Blood Venous blood specimen / Unknown Venipuncture / Unknown 10/12/2024 11:56 PM EDT 10/13/2024 12:01 AM EDT Narrative [facility] - 10/13/2024 1:02 AM EDT Therapeutic Range: LMWH enoxaparin 1mg/kg/dose, 12hrs - peak (3-5 hours after dose): 0.5 - 1.0 IU/mL LMWH enoxaparin 1.5mg/kg/dose, 24hrs - peak (3-5 hours after dose): 1.0 - 2.0 IU/mL LMWH enoxaparin prophylaxis: Not established us Derik Renae MD LAB BLOOD ORDERABLES Final Resu lt Performing Organization Address [facility] Co de Phone Number [facility] [address] [place] [address] * Red Blood Cell Antibody with Antigen Notification (10/12/2024 11:55 PM EDT) Notification, Gabriela Blood Cell Antibody with Antigen During your recent admission to the [facility], laboratory testing performed in the blood bank revealed the presence of antibodies against the following antigens that are found on red blood cells: E. This antibody is not harming you. You should keep this as reference to discuss with your general practitioner and maintain as part of your medical records. This information may be useful should you require a blood transfusion in the future. Please take the time to add this information to your cellular device in case of a medical emergency. If you have any further questions, please do not hesitate to call me at [phone]. No defined reference value 10/14/2024 4:24 PM EDT BLOOD BANK Pathologist Signature, Red Blood Cell Antibody with Antigen Reviewed by: Srikanth Watson MD 10/14/2024 4:24 PM EDT BLOOD BANK Blood Venous blood specimen / Unknown Venipuncture / Unknown 10/12/2024 11:55 PM EDT 10/13/2024 12:04 AM EDT Aidan Harrison MD LAB BLOOD BANK TEST ORDERABLES Final Result Performing Organization Address [facility] Co de Phone Number BLOOD BANK [address] [place] [address], * ED HIV 1/2 Antibody/Antigen Screen w/Reflex to HIV 1/2 Differentiation (10/12/2024 11:55 PM EDT) [facility] HIV 1 & 2 Antibody/Antigen Screen Non Reactive Non Reactive 10/13/2024 12:58 AM EDT [facility] Comment:Screening for HIV 1 & 2 antibodies, and P24 antigen is NONREACTIVE. No confirmatory testing is required. Blood Venous blood specimen / Unknown Venipuncture / Unknown 10/12/2024 11:55 PM EDT 10/13/2024 12:12 AM EDT Cat Jamison MD LAB BLOOD ORDERABLES Final Result Performing Organization Address [facility] Co de Phone Number [facility] [address] [place] [address] * (ABNORMAL) Trauma shock panel blood gas (10/12/2024 11:55 PM EDT) Pathologist [facility] pH, Venous 7.23(LL) 7.32 - 7.43 LAB HEMATOLOGY METHOD 10/13/2024 12:06 AM EDT [facility] Bicarbonate, Calculated, Venous 17(L) 22 - 26 mmol/L LAB HEMATOLOGY METHOD 10/13/2024 12:06 AM EDT [facility] Base Excess, Venous -10.0(L) -2.0 - 3.0 mmol/L LAB HEMATOLOGY METHOD 10/13/2024 12:06 AM EDT [facility] Lactate, Venous, Whole Blood 1.8 0.5 - 2.2 mmol/L LAB HEMATOLOGY METHOD 10/13/2024 12:06 AM EDT [facility] Blood Venous blood specimen / Unknown Venipuncture / Unknown 10/12/2024 11:55 PM EDT 10/13/2024 12:02 AM EDT us Cat Jamison MD LAB BLOOD ORDERABLES Final Result [facility] [address] [place] [address] * Ethyl Alcohol Plasma (10/12/2024 11:55 PM EDT) Pathologist [facility] Ethanol Plasma <10 <10 mg/dL 10/13/2024 12:55 AM EDT [facility] Blood Venous blood specimen / Unknown Venipuncture / Unknown 10/12/2024 11:55 PM EDT 10/13/2024 12:[address] [facility] - 10/13/2024 12:55 AM EDT Enzymatic Assay: Performed on [employer]gh[employer]. us Cat Jamison MD LAB BLOOD ORDERABLES Final Result [facility] [address] [place] [address] * Hepatitis C Antibody - ED (10/12/2024 11:55 PM EDT) [facility] Hepatitis C Antibody Negative Negative 10/13/2024 12:58 AM EDT [facility] Blood Venous blood specimen / Unknown Venipuncture / Unknown 10/12/2024 11:55 PM EDT 10/13/2024 12:12 AM EDT us Cat Jamison MD LAB BLOOD ORDERABLES Final Result Performing Organization Address City/[facility]/ZIP Co de Phone Number [facility] [address] [place] [address] * (ABNORMAL) TEG Global Hemostasis with Lysis (10/12/2024 11:55 PM EDT) R, Lysis 9.3(H) 4.6 - 9.1 min 10/13/2024 1:21 AM EDT [facility] MA, Rapid, Lysis 69.9 52.0 - 70.0 mm 10/13/2024 1:21 AM EDT [facility] JONAH, Fibrinogen, Lysis 32.5(H) 15.0 - 32.0 mm 10/13/2024 1:[address] [facility] LY30 0.8 0.0 - 2.6 % 10/13/2024 1:[address] [facility] Blood Venous blood specimen / Unknown Venipuncture / Unknown 10/12/2024 11:55 PM EDT 10/13/2024 12:17 AM EDT Cat Jamison MD LAB BLOOD ORDERABLES Final Result Performing Organization Address City/[facility]/ZIP Co de Phone Number [facility] [address] [place] [address] * (ABNORMAL) APTT (PTT) (10/12/2024 11:55 PM EDT) aPTT 36(H) 25 - 35 sec 10/13/2024 12:[address] [facility] Blood Venous blood specimen / Unknown Venipuncture / Unknown 10/12/2024 11:55 PM EDT 10/13/2024 12:01 AM EDT Cat Jamison MD LAB BLOOD ORDERABLES Final Result Performing Organization Address City/[facility]/ZIP Co de Phone Number [facility] [address] [place] [address] * (ABNORMAL) PT-INR (10/12/2024 11:55 PM EDT) Prothrombin Time 20.2(H) 12.0 - 14.3 sec 10/13/2024 12:14 AM EDT [facility] INR 1.7(H) 0.9 - 1.1 10/13/2024 12:14 AM EDT [facility] Blood Venous blood specimen / Unknown Venipuncture / Unknown 10/12/2024 11:55 PM EDT 10/13/2024 12:01 AM EDT Narrative [facility] - 10/13/2024 12:14 AM EDT OPTIMAL INR RANGES FOR PATIENT ON ORAL ANTICOAGULANT THERAPY Prevention of venous thromboembolism INR 2.0 to 3.0 In patients with heart disease: Atrial fibrillation INR 2.0 to 3.0 Valvular heart disease INR 2.0 to 3.0 Tissue heart valves INR 2.0 to 3.0 Mechanical prosthetic valves INR 2.5 to 3.5 Prevention of recurrent AL INR 2.5 to 3.5 us Cat Jamison MD LAB BLOOD ORDERABLES Final Result Performing Organization Address [facility]/ZIP Co de Phone Number [facility] [address] [place] [address] * Test Qualitative Plasma (10/12/2024 11:55 PM EDT) Test Negative Negative 10/13/2024 1:[address] [facility] Blood Venous blood specimen / Unknown Venipuncture / Unknown 10/12/2024 11:55 PM EDT 10/13/2024 12:12 AM EDT Narrative [facility] - 10/13/2024 1:02 AM EDT Reference Range: Males and non- females: Negative. us Cat Jamison MD LAB BLOOD ORDERABLES Final Result Performing Organization Address [facility] [place] [place] [address] * CT OUTSIDE IMAGES (10/12/2024 8:15 PM EDT) Only the most recent of3 resultswithin the time period is included. 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
--- OUTSIDE RECORDS SUMMARY | 2024-11-15 20:02 | XMS_ITS | Encounter Summary ---
Author Organization [employer] ([place], [place], [place], [place]) Address [address] [place] [address] Care Team Providers Care Electric Freight Car Operator Name Role Phone Unavailable Primary Care Provider Unavailabl e Encounter Details Date Type Department Care Team (Late st Contact Info) Description 05/07/2018 Transcribed Document [facility] [place] Family Medicine [address] [place] [address] ProviderZion MD [address] [place] [address] Social History Tobacco Use Types [...] Source : Stated Height Entry Format : Douglas Height, Feet : 5 ft(Converted to: 152 cm, 60 Inch) Height, Inches : 1 Inch(Converted to: 0 ft 1 Inch, 2.54 cm) Clinical Height : 154.94 cm Weight Source : Standing scale Weight Entry Format : Douglas Clinical Dosing Weight : 74.09 kg Weight, Pounds : 163 lb Body Surface Area (BSA) : 1.73 m2 Body Mass Index : 30.9 kg/m2 (HI) [place] Body Weight : 47 kg GAYLA CASE [...] : daughter Emergency Contact #1 Relationship : [phone] Emergency Contact #2 : . Emergency Contact #2 Phone Number : . Emergency Contact #2 Relationship : . Primary Language : Sammarinese Preferred Communication Mode : Verbal Communication Barrier [...] apparent problem Saúl Score : 23 GAYLA CASE RN - 05/07/2018 11:33 EDT Fall Risk [...] Scale Risk Level : 25-45 Medium Risk [place] Fall Interventions : Adequate lighting, Assistive devices within reach, Personal items within reach, Reinforced to call for assistance before getting out of bed GAYLA CASE RN - 05/07/2018 11:33 EDT Valuables and Belongings Valuables and Belongings : Clothing Clothing : Common streetwear Clothing Disposition : Bedside, With family EVIE, GAYLA Méndez RN - 05/07/2018 11:33 EDT documented in this encounter Plan of Treatment Not on file documented as of this encounter Visit Diagnoses Not on filedocumented in this encounter
--- OUTSIDE RECORDS SUMMARY | 2024-11-15 20:02 | XMS_ITS | Encounter Summary ---
Author Organization [employer] ([place], [place], [place], [place]) Address [address] [place] [address] Care Team Providers Care Inside Sales Executive Name Role Phone Unavailable Primary Care Provider Unavailabl e Encounter Details Date Type Department Care Team (Late st Contact Info) Description 03/23/2018 Transcribed Document [facility] [place] Family Medicine [address] [place] [address] ProviderZion MD [address], [place] [id number] Social History Tobacco Use Types Packs/Day Years Used Date Smoking Tobacco: Never Assessed Comments Unknown Sex and Gender Information Value Date Recorded Sex Assigned at Not on file Legal Sex Female 4:39 PM CDT Gender Identity Not on file Sexual Orientation Not on file documented as of this encounter Miscellaneous Notes * Cerner Conversion Note - Zion ProviderMD - 03/23/2018 6:37 PM HEAD STILL OPERATOR Patient: ETHAN CRONIN Age: 57 years Sex: Female : 1960 Associated Diagnoses: None Author: Anastacia Roth, Pharm.D.-Resident HPI: 57 year old female transferred from [facility] due to bradycardia during infusion. Pt has hx of CAD, CABG/pacemaker 3 years ago, DM, HTN, and [place]. Pt also has hx of bacteremia and was on antibitoics outpatient and pt cannot confirm what abx she was on. Pharmacist called [facility] and confirmed that pt did not receive [...] continue to follow Anastacia Roth PharmD PGY-1 [employer] [phone] documented in this encounter Plan of Treatment Not on file documented as of this encounter Visit Diagnoses Not on filedocumented in this encounter
--- OUTSIDE RECORDS SUMMARY | 2024-11-15 20:02 | XMS_ITS | Encounter Summary ---
Author Organization [employer] ([place], [place], [place], [place]) Address [address] [place] [address] Care Team Providers Care Commissary Officer Name Role Phone Unavailable Primary Care Provider Unavailabl e Encounter Details Date Type Department Care Team (Late st Contact Info) Description 05/07/2018 Transcribed Document [facility] [place] [address] [place] [address] ProviderZion MD [address] [place] [address] Social History Tobacco Use Types [...] you are awake and alert. ??? Take pqgh-cwo-ywizkoa and prescription medicines only as told by [...] 11/18/2013 Document Revised: 07/02/2016 Document Reviewed: 05/19/2016 [employer] Interactive Patient Education ? 2017 [employer] Radiology Transesophageal Echocardiogram Transesophageal echocardiography (BROCK) [...] 07/30/2013 Elsevier Interactive Patient Education ? 2017 [employer] documented in this encounter Plan of Treatment Not on file documented as of this encounter Visit Diagnoses Not on filedocumented in this encounter
--- OUTSIDE RECORDS SUMMARY | 2024-11-15 20:02 | XMS_ITS | Encounter Summary ---
Author Organization [employer] ([place], [place], [place], [place]) Address [address] [place] [address] Care Team Providers Care Blaster Helper Name Role Phone Unavailable Primary Care Provider Unavailabl e Encounter Details Date Type Department Care Team (Late st Contact Info) Description 03/25/2018 Transcribed Document [facility] [place] Family Medicine [facility] [place] [address] ProviderZion MD [address] [place] [address] Social History Tobacco Use Types Packs/Day Years Used Date Smoking Tobacco: Never Assessed Comments Unknown Sex and Gender Information Value Date Recorded Sex Assigned at Not on file Legal Sex Female 4:39 PM CDT Gender Identity Not on file Sexual Orientation Not on file documented as of this encounter Miscellaneous Notes * Cerner Conversion Note - Historical ProviderMD - 03/25/2018 1:44 PM WILDLIFE REFUGE SPECIALIST Patient: ETHAN LOREDO Age: 57 Years Sex: [...] underlying sinus rhythm. 2. Biventricular internal cardioverter-defibrillator [employer], this device was reprogrammed, the values as [...] Electronically signed by Jorge Alberto, Vinayak Conversion Milling Machine Tender Tata at 05/29/2022 8:29 PM CDT documented in this encounter Plan of Treatment Not on file documented as of this encounter Visit Diagnoses Not on filedocumented in this encounter
--- OUTSIDE RECORDS SUMMARY | 2024-11-15 20:02 | XMS_ITS | Encounter Summary ---
Author Organization [employer] ([place], [place], [place], [place]) Address [address] [place] [address] Care Team Providers Care Sales Financial Analyst Name Role Phone Unavailable Primary Care Provider Unavailabl e Encounter Details Date Type Department Care Team (Late st Contact Info) Description 03/26/2018 Transcribed Document [facility] [place] Family Medicine [address] [place] [address] ProviderZoin MD [address] [place] [address] Social History Tobacco Use Types [...] - Historical ProviderMD - 03/26/2018 5:00 AM JOURNEYMAN PRESS OPERATOR Chart Check - Review Order Profile Entered On: 03/26/2018 4:12 EST Performed On: 03/26/2018 5:00 EST by Tasia Ewing Rn-Resource Chart Check Chart Reviewed Date and Time : 03/26/2018 4:30 EST Power[employer]ans Initiated/Discontinued as Appropriate : Yes All Active Orders Reviewed : Yes Chart Reviewed With : Tasia Ewing, Rn-Resource Tasia Ewing, Rn-Resource - 03/26/2018 4:12 EST Electronically signed by Vinayak Azul Conversion Mental Health Advanced Practice Nurse Cerner at 05/29/2022 8:41 PM CDT documented in this encounter Plan of Treatment Not on file documented as of this encounter Visit Diagnoses Not on filedocumented in this encounter
--- OUTSIDE RECORDS SUMMARY | 2024-11-15 20:02 | XMS_ITS | Encounter Summary ---
Author Organization [employer] ([place], [place], [place], [place]) Address [address] [place] [address] Care Team Providers Care Appellate Conferee Name Role Phone Unavailable Primary Care Provider Unavailabl e Encounter Details Date Type Department Care Team (Late st Contact Info) Description 03/29/2018 Transcribed Document [facility] [place] [address] [place] [address] ProviderZion MD [address] [place] [address] Social History Tobacco Use Types Packs/Day Years Used Date Smoking Tobacco: Never Assessed Comments Unknown Sex and Gender Information Value Date Recorded Sex Assigned at Not on file Legal Sex Female 4:39 PM CDT Gender Identity Not on file Sexual Orientation Not on file documented as of this encounter Miscellaneous Notes * Cerner Conversion Note - Zion ProviderMD - 03/29/2018 1:35 PM MACHINE ADJUSTER LEADER Patient: ETHAN LOREDO Age: 57 years Sex: [...] Rocephin: 2 Gram, 100 mL/Hr, IV Piggyback, [id number] Tylenol: 650 mg, Oral, Q4H, PRN: Other [...] 0 Refill(s) Rocephin: 2 Gram, IV Piggyback, [id number], 0 Refill(s) carvedilol 3.125 mg oral tablet: [...] At Bedtime Rocephin 2 Gram, IV Piggyback, [id number] , Medications (25) Active Scheduled: (13) aspirin EC 81 mg tab 81 mg 1 Tab, Oral, Daily carvedilol 3.125 mg tab 3.125 mg 1 Tab, Oral, Daily cefTRIAXone 2 Gram, IV Piggyback, [id number] citalopram 20 mg tab 20 mg 1 [...] - Coronary artery disease / SNOMED CT 8697484098 / Confirmed Cardiomyopathy / SNOMED CT 347459221 / Confirmed HLD - Hyperlipidemia / SNOMED CT 366537806 / Confirmed HTN - Hypertension / SNOMED CT 3563582418 / Confirmed Resolved: COPD - Chronic obstructive pulmonary disease / SNOMED CT 162331746, Active Problems (14) Anxiety Atrial flutter Bladder [...]
--- OUTSIDE RECORDS SUMMARY | 2024-11-15 20:02 | XMS_ITS | Encounter Summary ---
Author Organization [employer] ([place], [place], [place], [place]) Address [address] [place] [address] Care Team Providers Care Oil Pump Station Operator Chief Name Role Phone Unavailable Primary Care Provider Unavailabl e Encounter Details Date Type Department Care Team (Late st Contact Info) Description 05/07/2018 Transcribed Document [facility] [place] [facility] [place] [address] ProviderZion MD [address] [place] [address] Social History Tobacco Use Types Packs/Day [...] Zion ProviderMD - 05/07/2018 4:09 PM CDT [address] [place] [address] Patient Copy Patient Information: Name: ETHAN CRONIN Current Date: 05/07/2018 16:09:51 : 1960 Patient Address: [address] [place] [id number] Patient Attending Physician: AJAY MARCANO MD-GUICHO Primary Care Provider: SUJIT DAWKINS (REF)MD-SHELLEY Primary Care Provider Discharge Diagnosis: Weight on Admission: 163 lb, 0 oz Comment: Follow-up Instructions: With: Address: When: JOHN TSAI [address] [facility] [place] [address] GetFresh (1) 11:45 AM With: Address: When: AJAY MARCANO [address] [place] [address], [address] [place] [address] GetFresh (1) Within 2 to 3 days Comments: [...] you are awake and alert. ??? Take xpkq-qcd-hjoydqg and prescription medicines only as told by [...] 11/18/2013 Document Revised: 07/02/2016 Document Reviewed: 05/19/2016 ElseP[employer] Interactive Patient Education ? 2017 [employer] Transesophageal Echocardiogram Transesophageal echocardiography (BROCK) is [...] 11/25/2009 Document Revised: 07/05/2016 Document Reviewed: 07/30/2013 [employer] Interactive Patient Education ? 2017 [employer] CIGARETTE SMOKING: The facts are clear, cigarette smoking will shorten your life. Smoking can cause many illnesses along the way. As a healthcare provider, we recommend that you stop smoking. Assistance with quitting is available by contacting 4-831-VEFO-NOW. This is a free resource providing counseling, [...] Be sure to sign up for the [employer] patient portal, which gives you 03/09 access to your medical information ??? including these discharge instructions ??? using your computer, smartphone, or tablet. Just go to [employer] to get started. Questions? Call . [facility] would like to thank you for allowing us to assist you with your healthcare needs. GERTRUDE Mcconnell VERONICA GAY, (or medical service representative) have received the above patient education materials/instructions and have verbalized understanding: Patient Signature _ Date/Time Patient First Grade Teacher Signature (if needed) Date/Time Clinician/Hospital First Grade Teacher Signature (if needed) Date/Time Electronically signed by Interface, [facility] Conversion Electric Solderer Cerner at 05/29/2022 8:55 PM CDT documented in this encounter Plan of Treatment Not on file documented as of this encounter Visit Diagnoses Not on filedocumented in this encounter
--- OUTSIDE RECORDS SUMMARY | 2024-11-15 20:02 | XMS_ITS | Encounter Summary ---
Author Organization [employer] ([place], [place], [place], [place]) Address [address] [place] [address] Care Team Providers Care Behavioral School Counselors Name Role Phone Unavailable Primary Care Provider Unavailabl e Encounter Details Date Type Department Care Team (Late st Contact Info) Description 03/25/2018 Transcribed Document [facility] [place] [address] [place] [address] ProviderZion MD [address] [place], [place] [id number] Social History Tobacco Use Types Packs/Day Years Used Date Smoking Tobacco: Never Assessed Comments Unknown Sex and Gender Information Value Date Recorded Sex Assigned at Not on file Legal Sex Female 4:39 PM CDT Gender Identity Not on file Sexual Orientation Not on file documented as of this encounter Miscellaneous Notes * Cerner Conversion Note - Zion ProviderMD - 03/25/2018 9:14 AM COUTURE ALTERATIONS DRESSMAKER Patient: ETHAN CRONIN Age: 57 years Sex: Female : 1960 Associated Diagnoses: None Author: CARROLL HIGH MD-INF Basic Information CC: Sepsis bacteremia 03/19/18 4/4 bottles for Group b strep ([facility]) History of Present Illness 57-year-old white female with history of bladder cancer, atrial flutter, pacemaker placement 2016, hypertension, DM2, COPD, pancreatitis, who recently had blood cultures obtained at [facility] on 03/19/18 for fever which were positive in 4 out of 4 bottles for group B Streptococcus. Patient was to start IV antibiotics but was found to have bradycardia and was admitted to [facility] on 03/23/17. I was consulted on 03/25/17. The patient had been started on vancomycin and Rocephin. Urine culture obtained at [facility] was positive for multiple bacteria consistent [...] cefTRIAXone (Rocephin) - 2 Gram, IV Piggyback, [id number], infuse over 30 Minute(s), Routine vancomycin + Sodium Chloride 0.9% intravenous solution 250 m - 750 mg, IV Piggyback, [id number], infuse over 1 Hour(s) Anticoagulant heparin - [...] 11:52 - SUSI BOWMAN RN 2006 Cholecystectomy; ([id number]). Comments: 02/17/2015 11:52 - SUSI BOWMAN RN 2006 umbilical hernia repair. Social History Social & Psychosocial Habits Tobacco 02/17/2015 Tobacco Use Within Last Twelve Months Cigarettes Smoking Status Current every day smoker Years of Tobacco Use 40 Packs/Tins Daily 1 Smoking Cessation Information Provided Yes . , 3 children, lives in [facility] about 1[place]/2 hours from [place].. Physical Examination VS/Measurements Vitals Signs (last 24 [...] Normal strength, No tenderness. Integumentary: Warm, Dry, [place], No pallor, No rash, Left chest wall [...] No Radiology Results Found Diagnostic Findings: ACC: [id number] ORDER: Culture Blood DATE: 03/23/2018 17:49 SOURCE: Blood SITE: Reports Pre 03/24/2018 23:02 No growth at 1 day. Pre 03/24/2018 16:03 Culture less than 24 Hrs old == [facility]: [id number] ORDER: Culture Blood DATE: 03/23/2018 17:49 SOURCE: Blood SITE: Reports Pre 03/24/2018 23:02 No growth at 1 day. Pre 03/24/2018 16:03 Culture less than 24 Hrs old == . Impression and Plan 1. Group B streptococcus sepsis 03/19/18 in 4 out of 4 blood culture bottles positive at [facility] (spoke to Maurice Spencer, at [facility]). The high-grade bacteremia suggests intravascular source including [...]
--- OUTSIDE RECORDS SUMMARY | 2024-11-15 20:02 | XMS_ITS | Encounter Summary ---
Author Organization [employer] ([place], [place], [place], [place]) Address [address] [place] [address] Care Team Providers Care District Plant Supervisor Name Role Phone Unavailable Primary Care Provider Unavailabl e Encounter Details Date Type Department Care Team (Late st Contact Info) Description 03/26/2018 Transcribed Document [facility] [place] Family Medicine [address] [place] [address] ProviderZion MD [address] [place] [address] Social History Tobacco Use Types [...] - Zion ProviderMD - 03/26/2018 10:05 AM SPRING INSPECTOR Patient: ETHAN CRONIN Age: 57 years Sex: Female : 1960 Associated Diagnoses: None Author: CARROLL HIGH MD-INF Basic Information CC: Sepsis bacteremia 03/19/18 4/4 bottles for Group b strep ([facility]) History of Present Illness 57-year-old white female with history of bladder cancer, atrial flutter, pacemaker placement 2016, hypertension, DM2, COPD, pancreatitis, who recently had blood cultures obtained at [facility] on 03/19/18 for fever which were positive in 4 out of 4 bottles for group B Streptococcus. Patient was to start IV antibiotics but was found to have bradycardia and was admitted to [facility] on 03/23/17. I was consulted on 03/25/17. The patient had been started on vancomycin and Rocephin. Urine culture obtained at [facility] was positive for multiple bacteria [...] cefTRIAXone (Rocephin) - 2 Gram, IV Piggyback, [id number], infuse over 30 Minute(s), Routine Anticoagulant heparin [...] Normal strength, No tenderness. Integumentary: Warm, Dry, [place], No pallor, No rash, Left chest wall [...] 10) Troponin <0.015 (FEB 10) , ACC: [id number] ORDER: Culture Blood DATE: 03/23/2018 17:49 SOURCE: Blood SITE: Reports Pre 03/25/2018 23:01 No growth at 2 days. Pre 03/24/2018 23:02 No growth at 1 day. Pre 03/24/2018 16:03 Culture less than 24 Hrs old == ACC: [id number] ORDER: Culture Blood DATE: 03/23/2018 17:49 SOURCE: Blood SITE: Reports Pre 03/25/2018 23:01 No growth at 2 days. Pre 03/24/2018 23:02 No growth at 1 day. Pre 03/24/2018 16:03 Culture less than 24 Hrs old == . Procedure Critical Care - Code Management Assessment: Radiology Results (Last 48 hours) [id number] -- 03/23/2018 17:08 CT Abdomen Pelvis WO [...] of 4 blood culture bottles positive at [facility] (spoke to Maurice Spencer, at [facility]). The high-grade bacteremia suggests intravascular [...] and discussed with Dr. Perez's service, cardiology. documented in this encounter Plan of Treatment Not on file documented as of this encounter Visit Diagnoses Not on filedocumented in this encounter
--- OUTSIDE RECORDS SUMMARY | 2024-11-15 20:02 | XMS_ITS | Encounter Summary ---
Author Organization [employer] ([place], [place], [place], [place]) Address [address] [place] [address] Care Team Providers Care Elevator Repair Mechanic Name Role Phone Unavailable Primary Care Provider Unavailabl e Encounter Details Date Type Department Care Team (Late st Contact Info) Description 03/29/2018 Transcribed Document [facility] Radiology [address] [place] [address] Dodie Tirado MD [address] [place] [address] Social History Tobacco Use Types Packs/Day [...] Rocephin: 2 Gram, 100 mL/Hr, IV Piggyback, [id number] Tylenol: 650 mg, Oral, Q4H, PRN: Other [...] 0 Refill(s) Rocephin: 2 Gram, IV Piggyback, [id number], 0 Refill(s) carvedilol 3.125 mg oral tablet: [...] At Bedtime Rocephin 2 Gram, IV Piggyback, [id number] , Medications (26) Active Scheduled: (14) aspirin EC 81 mg tab 81 mg 1 Tab, Oral, Daily carvedilol 3.125 mg tab 3.125 mg 1 Tab, Oral, Daily cefTRIAXone 2 Gram, IV Piggyback, [id number] citalopram 20 mg tab 20 mg 1 [...] - Coronary artery disease / SNOMED CT 7474314486 / Confirmed Cardiomyopathy / SNOMED CT 990832755 / Confirmed HLD - Hyperlipidemia / SNOMED CT 035366243 / Confirmed HTN - Hypertension / SNOMED CT 4311932811 / Confirmed, Active Problems (14) Anxiety Atrial [...] to rehab when bed available. Discussed with casey saw operator. documented in this encounter Plan of Treatment Not on file documented as of this encounter Visit Diagnoses Not on filedocumented in this encounter
--- OUTSIDE RECORDS SUMMARY | 2024-11-15 20:02 | XMS_ITS | Encounter Summary ---
Author Organization [employer] ([place], [place], [place], [place]) Address [address] [place] [address] Care Team Providers Care Varnisher Apprentice Name Role Phone Unavailable Primary Care Provider Unavailabl e Encounter Details Date Type Department Care Team (Late st Contact Info) Description 05/07/2018 Transcribed Document [facility] [place] [address] [place] [address] ProviderZion MD [address] [place] [address] Social History Tobacco Use Types [...]
--- OUTSIDE RECORDS SUMMARY | 2024-11-15 20:02 | XMS_ITS | Encounter Summary ---
Author Organization [employer] ([place], [place], [place], [place]) Address [address] [place] [address] Care Team Providers Care Audit Consultant Name Role Phone Unavailable Primary Care Provider Unavailabl e Encounter Details Date Type Department Care Team (Late st Contact Info) Description 03/25/2018 Transcribed Document [facility] [place] [address] [place] [address] ProviderZion MD [address] [place] [address] Social History Tobacco Use Types [...] - Historical ProviderMD - 03/25/2018 5:00 AM SUPERVISOR INSTANT POTATO PROCESSING Chart Check - Review Order Profile Entered [...]
--- OUTSIDE RECORDS SUMMARY | 2024-11-15 20:02 | XMS_ITS | Encounter Summary ---
Author Organization [employer] ([place], [place], [place], [place]) Address [address] [place] [address] Care Team Providers Care Vacuum Kettle Cook Name Role Phone Unavailable Primary Care Provider Unavailabl e Encounter Details Date Type Department Care Team (Late st Contact Info) Description 05/07/2018 Transcribed Document [facility] [place] [address] [place] [address] ProviderZion MD [address] [place], [place] [id number] Social History Tobacco Use Types Packs/Day Years [...] 16:09 EDT Electronically signed by Jorge Alberto [facility] Conversion Geography Teacher Cerner at 05/29/2022 8:32 PM CDT documented in this encounter Plan of Treatment Not on file documented as of this encounter Visit Diagnoses Not on filedocumented in this encounter
--- OUTSIDE RECORDS SUMMARY | 2024-11-15 20:02 | XMS_ITS | Encounter Summary ---
Author Organization [employer] ([place], [place], [place], [place]) Address [address] [place] [address] Care Team Providers Care Pilot Instructor Name Role Phone Unavailable Primary Care Provider Unavailabl e Encounter Details Date Type Department Care Team (Late st Contact Info) Description 03/26/2018 Transcribed Document [facility] [place] Family Medicine [address] [place] [address] ProviderZion MD [address] [place] [address] Social History Tobacco Use Types [...] - Historical ProviderMD - 03/26/2018 10:40 AM PAINT POURER Patient: ETHAN LOREDO Age: 57 Years Sex: [...]
--- OUTSIDE RECORDS SUMMARY | 2024-11-15 20:02 | XMS_ITS | Encounter Summary ---
Author Organization [employer] ([place], [place], [place], [place]) Address [address] [place] [address] Care Team Providers Care Teletray Operator Name Role Phone Unavailable Primary Care Provider Unavailabl e Encounter Details Date Type Department Care Team (Late st Contact Info) Description 03/25/2018 Transcribed Document [facility] [place] [address] [place] [address] ProviderZion MD [address] [place], [place] [id number] Social History Tobacco Use Types Packs/Day Years Used Date Smoking Tobacco: Never Assessed Comments Unknown Sex and Gender Information Value Date Recorded Sex Assigned at Not on file Legal Sex Female 4:39 PM CDT Gender Identity Not on file Sexual Orientation Not on file documented as of this encounter Miscellaneous Notes * [employer] Conversion Note - Zion ProviderMD - 03/25/2018 7:28 AM MANUFACTURERS REPRESENTATIVE DATE OF CONSULTATION: 03/24/2018 ELECTROPHYSIOLOGY CONSULTATION REFERRING HOSPITALIST: Omar Nelson M.D. CONSULTING LINE ASSIGNER: oJrge Hawkins MD REASON FOR CONSULTATION: Bradycardia. HISTORY OF PRESENT ILLNESS: Ms. Laxmi Cronin is 57 years old, she had a [...] been seen by Dr. Beard in the [facility] [place]. The patient does have a history of [...] count of 379. [place] 1[place] [address]. Liver enzymes normal. EKG shows biventricular paced [...] CC1: Jorge Hawkins M.D. CC2: Dr. Beard; [place], [place] Electronically signed by Jorge Alberto [facility] Conversion Split Leather Department Supervisor Cerner at 05/29/2022 8:43 PM CDT documented in this encounter Plan of Treatment Not on file documented as of this encounter Visit Diagnoses Not on filedocumented in this encounter
--- OUTSIDE RECORDS SUMMARY | 2024-11-15 20:02 | XMS_ITS | Clinical Summary ---
Author Organization [employer] ([place], [place], [place], [place]) Address [address] [place] [address] Care Team Providers Care Spud Driller Name Role Phone Unavailable Primary Care Provider [...]
--- OUTSIDE RECORDS SUMMARY | 2024-11-15 20:02 | XMS_ITS | Encounter Summary ---
Author Organization [employer] ([place], [place], [place], [place]) Address [address] [place] [address] Care Team Providers Care Custodial Worker Name Role Phone Unavailable Primary Care Provider Unavailabl e Encounter Details Date Type Department Care Team (Late st Contact Info) Description 03/25/2018 Transcribed Document [facility] [place] Medicine [address] [place] [address] ProviderZion MD [address] [place] [address] Social History Tobacco [...] Conversion Note - Historical ProviderMD - 03/25/2018 8:01 AM HOUSEMAID Patient: ETHAN CRONIN Age: 57 years Sex: Female : 1960 Associated Diagnoses: None Author: NAVID STARKEY, [facility] 57 year old female with bradycardia during outpt infusion for bacteremia PMH: CAD, CABG/pacemaker 3 years ago, DM, HTN, and CA Consult: vancomycin Indication: bacteremia Goal of Trough: [...]
--- OUTSIDE RECORDS SUMMARY | 2024-11-15 20:02 | XMS_ITS | Encounter Summary ---
Author Organization [employer] ([place], [place], [place], [place]) Address [address] [place] [address] Care Team Providers Care Swimming Coach Name Role Phone Unavailable Primary Care Provider Unavailabl e Encounter Details Date Type Department Care Team (Late st Contact Info) Description 03/27/2018 Transcribed Document [facility] [place] [address] [place] [address] ProviderZion MD [address] [place] [phone] Social History Tobacco Use Types Packs/Day Years Used Date Smoking Tobacco: Never Assessed Comments Unknown Sex and Gender Information Value Date Recorded Sex Assigned at Not on file Legal Sex Female 4:39 PM CDT Gender Identity Not on file Sexual Orientation Not on file documented as of this encounter Miscellaneous Notes * [employer] Conversion Note - Zion ProviderMD - 03/27/2018 9:26 AM THIRD LOADER Patient: ETHAN CRONIN Age: 57 years Sex: Female : 1960 Associated Diagnoses: None Author: AJAY MARCANO MD-CAR Basic Information PCP: Unknown Dining Room Attendant Cafeteria: Chief Complaint 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 Social & Psychosocial Habits Tobacco 02/17/2015 Tobacco Use Within Last Twelve Months Cigarettes Smoking Status Current every day smoker Years of Tobacco Use 40 Packs/Tins Daily 1 Smoking Cessation Information Provided Yes Past Medical History: Active CAD - Coronary artery disease (0599346000) Cardiomyopathy (953795668) HLD - Hyperlipidemia (565613670) HTN - Hypertension (2424180673) Resolved COPD - Chronic obstructive pulmonary disease (126276326): Resolved. Family History: No family history items have been selected or recorded. Procedure history: CABG in 2016 at 55 Years. MAZE in 2016 at 55 Years. Cholecystectomy; (18087). Comments: 02/17/2015 11:52 - SUSI BOWMAN, REGULO [...] of motion, Normal strength. Integumentary: Warm, Dry, [place]. Neurologic: Alert, Oriented. Psychiatric: Cooperative, Appropriate mood & affect. Review / Management MAR 27 07:36 136 104 H 33 / H 137 4.0 L 20 0.90 \ Cardiac Markers (Current Encounter/Past 24 Hours) No Cardiac Marker Results Found (Past 24 Hours) Blood Gases (Current Encounter/Past 24 Hours) No Blood Gas Results Found (Past 24 Hours) Radiology Results (Last 48 hours) [id number] -- 03/23/2018 17:08 CT Abdomen Pelvis WO [...]
--- OUTSIDE RECORDS SUMMARY | 2024-11-15 20:02 | XMS_ITS | Encounter Summary ---
Author Organization [employer] ([place], [place], [place], [place]) Address [address] [place] [address] Care Team Providers Care Chief Financial Officer Name Role Phone Unavailable Primary Care Provider Unavailabl e Encounter Details Date Type Department Care Team (Late st Contact Info) Description 03/29/2018 Transcribed Document [facility] [place] Family Medicine [address] [place] [address] ProviderZion MD [address] [place] [address] Social History Tobacco Use Types [...] - Zion ProviderMD - 03/29/2018 3:54 PM CREW DIRECTOR Patient Education Materials Follows:Disease Endocarditis Endocarditis is [...] these instructions at home: Medicines ??? Take doms-jxt-pvhkvoc and prescription medicines only as told by [...] 01/28/2006 Document Revised: 11/09/2016 Document Reviewed: 11/09/2016 [employer] Interactive Patient Education ? 2017 [employer] documented in this encounter Plan of Treatment Not on file documented as of this encounter Visit Diagnoses Not on filedocumented in this encounter
--- OUTSIDE RECORDS SUMMARY | 2024-11-15 20:02 | XMS_ITS | Encounter Summary ---
Author Organization [employer] ([place], [place], [place], [place]) Address [address] [place] [address] Care Team Providers Care Savings Counselor Name Role Phone Unavailable Primary Care Provider Unavailabl e Encounter Details Date Type Department Care Team (Late st Contact Info) Description 03/25/2018 Transcribed Document [facility] [place] [address] [place] [address] ProviderZion MD [address] [place], [place] [phone] Social History Tobacco Use Types Packs/Day Years Used Date Smoking Tobacco: Never Assessed Comments Unknown Sex and Gender Information Value Date Recorded Sex Assigned at Not on file Legal Sex Female 4:39 PM CDT Gender Identity Not on file Sexual Orientation Not on file documented as of this encounter Miscellaneous Notes * [employer] Conversion Note - Historical ProviderMD - 03/25/2018 2:00 AM COMPUTER SYSTEMS ARCHITECT Solutions Developer Details Entered On: 03/25/2018 4:05 EST Performed [...]
--- OUTSIDE RECORDS SUMMARY | 2024-11-15 20:02 | XMS_ITS | Encounter Summary ---
Author Organization [employer] ([place], [place], [place], [place]) Address [address] [place] [address] Care Team Providers Care Media Associate Name Role Phone Unavailable Primary Care Provider Unavailabl e Encounter Details Date Type Department Care Team (Late st Contact Info) Description 03/29/2018 Transcribed Document [facility] [place] [facility] [place] [address] ProviderZion MD [address] [place] [id number] Social History Tobacco Use Types Packs/Day Years Used Date Smoking Tobacco: Never Assessed Comments Unknown Sex and Gender Information Value Date Recorded Sex Assigned at Not on file Legal Sex Female 4:39 PM CDT Gender Identity Not on file Sexual Orientation Not on file documented as of this encounter Miscellaneous Notes * [employer] Conversion Note - Zion ProviderMD - 03/29/2018 8:09 AM DEBONE PROCESSING SUPERVISOR Patient: ETHAN CRONIN Age: 57 years Sex: Female : 1960 Associated Diagnoses: None Author: CARROLL HIGH MD-INF Basic Information CC: Sepsis bacteremia 03/19/18 4/4 bottles for Group b strep ([facility]), mitral prosthetic valve endocarditis History of Present Illness 57-year-old white female with history of bladder cancer, atrial flutter, pacemaker placement 2016, hypertension, DM2, COPD, pancreatitis, who recently had blood cultures obtained at [facility] on 03/19/18 for fever which were positive in 4 out of 4 bottles for group B Streptococcus. Patient was to start IV antibiotics but was found to have bradycardia and was admitted to [facility] on 03/23/17. I was consulted on 03/25/17. The patient had been started on vancomycin and Rocephin. Urine culture obtained at [facility] was positive for multiple bacteria consistent [...] cefTRIAXone (Rocephin) - 2 Gram, IV Piggyback, [id number], infuse over 30 Minute(s), Routine Anticoagulant heparin [...] Normal strength, No tenderness. Integumentary: Warm, Dry, [place], No pallor, No rash, Left chest wall [...] of 4 blood culture bottles positive at [facility] (spoke to Maurice Spencer, at [facility]). BROCK consistent with mitral valve [...] Dr. Perez's service, cardiology, and Dr. Alan.. retail operations manager: Please arrange for outpatient IV antibiotics with Rocephin 2 g IV every 12 hours until 05/04/18. Follow CBC, CMP, CRP weekly while on IV antibiotics. Fax orders to [phone], and call [phone] with final arrangements. Arrange for follow-up with me in 2 weeks post discharge. documented in this encounter Plan of Treatment Not on file documented as of this encounter Visit Diagnoses Not on filedocumented in this encounter
--- OUTSIDE RECORDS SUMMARY | 2024-11-15 20:02 | XMS_ITS | Encounter Summary ---
Author Organization [employer] ([place], [place], [place], [place]) Address [address] [place] [address] Care Team Providers Care Websphere Commerce Developer Name Role Phone Unavailable Primary Care Provider Unavailabl e Encounter Details Date Type Department Care Team (Late st Contact Info) Description 03/25/[address] [facility] [place] Family Medicine [address] [place] [address] ProviderZion MD [address] [place] [address] Social History Tobacco Use Types [...] - Historical ProviderMD - 03/25/2018 5:00 PM CHARGE AUDITOR Chart Check - Review Order Profile Entered [...]
--- NOTE | 2024-11-15 20:30 | XR_ITS ---
PROCEDURE INFORMATION: Exam: XR Chest Exam date and time: 11/15/2024 9:35 PM Age: 64 years old Clinical indication: Shortness of breath; Additional info: Short of breath TECHNIQUE: Imaging protocol: Radiologic exam of the chest. Views: 1 view. COMPARISON: CT ANGIO CHEST 10/12/2024 8:15 PM FINDINGS: Tubes, catheters and devices: Multiple sternal cerclage wires overlie the sternum. Left atrial appendage occlusion device overlies the cardiac silhouette. A 3 lead internal cardiac device implanted at the left chest with leads extending to the right heart. Lungs: There is prominence of the pulmonary vasculature with interstitial and bibasilar airspace opacities. Pleural spaces: No pneumothorax. Heart/Mediastinum: Cardiac silhouette is enlarged. Bones/joints: Unremarkable. IMPRESSION: Constitution of findings compatible with moderate CHF in the appropriate clinical setting.
--- NOTE | 2024-11-15 20:32 | HMH.EDGENADL ---
Discharge Plan Disposition Patient Disposition: Admitted Clinical Impressions Clinical Impression: Acute hyperkalemia, CHF (congestive heart failure), Abdominal pain, Choledocholithiasis CKD (chronic kidney disease) Qualifiers: Chronic kidney disease stage: stage 3 (moderate) Chronic kidney disease stage 3 subtype: stage 3a (GFR 45-59) Qualified Code(s): N18.31 - Chronic kidney disease, stage 3a Discharge ED Provider: T[facility] <Pilar Rodriguez (ED), ELECTROLYSIS INVESTIGATOR - Last Filed: 11/15/24 21:56> General Chief complaint: Nausea/Vomiting/Diarrhea Stated complaint: Nausea and Vomitting Time Seen by Provider: 11/15/24 20:25 Mode of Arrival: EMS Source of Information: Patient Description of Symptoms (Recalled from ER Triage Doc. by RN): Patient to ED via [facility] from [place] for intrac. N/V since 0900. Patient denies fevers and diarrhea. 4mg zofran adminsitered [employer] from [place]. Patient FSBS in ambulance [id number] History of Present Illness HPI narrative: 64-year-old female presents to the ED today for complaint of nausea and vomiting since early this morning. She says the food was nasty and she started throwing up after breakfast. Patient denies any fevers or chills. She does have abdominal pain. She does have a urostomy. Related Data Home Medications ?Medication ?Instructions ?Recorded ?Confirmed blood sugar diagnostic (True #10 ea 04/22/24 11/11/24 Metrix Glucose Test Strip) blood-glucose sensor (Dexcom G7 #1 ea 04/22/24 11/11/24 Sensor device) insulin syringe-needle U-100 1 mL #10 ea 04/22/24 11/11/24 31 gauge x 5/16 insulin lispro 100 unit/mL 0 unit SQ DIRECTED 07/02/24 11/16/24 subcutaneous solution pantoprazole 40 mg tablet,delayed 40 mg PO HS 10/07/24 11/16/24 release (Protonix) amiodarone 200 mg tablet 400 mg PO DAILY 10/08/24 11/16/24 apixaban 5 mg tablet (Eliquis) 5 mg PO BID 10/08/24 11/16/24 atorvastatin 40 mg tablet (Lipitor) 40 mg PO HS 10/08/24 11/16/24 citalopram 20 mg tablet 20 mg PO HS 10/08/24 11/16/24 clopidogrel 75 mg tablet 75 mg PO DAILY 10/08/24 11/16/24 levothyroxine 25 mcg capsule 25 mcg PO DAILY 10/08/24 11/16/24 ondansetron HCl 4 mg tablet 4 mg PO Q6HP PRN Nausea And 10/08/24 11/16/24 Vomiting ropinirole 1 mg tablet 1 mg PO HS 10/08/24 11/16/24 alprazolam 0.25 mg tablet 0.25 mg PO BID 11/16/24 11/16/24 amino acids-protein hydrolysate 17 1 ea PO DAILY 11/16/24 11/16/24 gram-100 kcal/30 mL liquid packet (Pro-Stat AW) cyanocobalamin (vitamin B-12) 100 100 mcg PO DAILY 11/16/24 11/16/24 mcg tablet folic acid 1 mg tablet 1 mg PO DAILY 11/16/24 11/16/24 hydrocodone 5 mg-acetaminophen 325 1 tab PO Q6HP PRN Moderate Pain 11/16/24 11/16/24 mg tablet (Scale Score 5-6) midodrine 10 mg tablet 10 mg PO BID 11/16/24 11/16/24 mirtazapine 15 mg tablet 15 mg PO HS 11/16/24 11/16/24 penicillin V potassium 250 mg 250 mg PO BID 11/16/24 11/16/24 tablet Previous Rx's ?Medication ?Instructions ?Recorded albuterol sulfate 90 mcg/actuation 2 inh inhalation QID PRN shortness 07/09/24 aerosol inhaler of breath or wheezing 90 days #8.5 grams insulin glargine 100 unit/mL (3 10 unit (0.1 mL) SQ HS #3 mL 10/06/24 mL) subcutaneous pen (Lantus Solostar U-100 Insulin) Allergies Allergy/AdvReac Type Severity Reaction Status Date / Time No Known Allergies Allergy Verified 11/11/24 08:38 [facility] <Pilar Rodriguez (ED), ELECTROLYSIS INVESTIGATOR - Last Filed: 11/15/24 21:56> [facility] Disclaimer: The information contained in this section may have been updated after the patient was seen, as this information can be updated by other users. Medical History CKD (chronic kidney disease) STACY (acute kidney injury) Fracture of pubic ramus Anemia Generalized weakness Diabetes mellitus Pulmonary embolism Neuropathic pain Failure to thrive Shock Impaired ambulation Self-care deficit Marijuana smoker Pulmonary embolism on left Smoking greater than 30 pack years Pulmonary emphysema Chronic kidney disease Atrial fibrillation Acute respiratory failure with hypoxia Pleural effusion on right Chronic endocarditis Acute on chronic HFrEF (heart failure with reduced ejection fraction) Coronary artery disease Right kidney mass Pancreatic mass Dental abscess Pain, dental Hematuria Nausea vomiting and diarrhea Hypovolemia Infection due to extended-spectrum [id number] Klebsiella pneumoniae Yeast infection of the vagina STACY (acute kidney injury) Cellulitis Candidiasis Presence of urostomy Vitamin D deficiency Bacterial endocarditis Obesity (BMI 30.0-34.9) Gastroenteritis due to norovirus Bacteremia Pacemaker Bladder cancer Diarrhea UTI (urinary tract infection) Dehydration Abscess of skin or subcutaneous tissue Valvular heart disease Palpitations Myocardial infarction HTN (hypertension), benign Depression CHF (congestive heart failure) Anxiety PAD (peripheral artery disease) Abnormal ankle brachial index (GOMEZ) HHD (hypertensive heart disease) HLD (hyperlipidemia) Carotid bruit Carotid artery stenosis Surgical History S/P ileal conduit (~12/2020) H/O tricuspid valve repair History of insertion of stent into coronary artery bypass graft History of urostomy Hx of cholecystectomy H/O: hysterectomy Hx of tonsillectomy History of mitral valve replacement S/P left atrial appendage ligation AICD (automatic cardioverter/defibrillator) present History of coronary artery bypass graft Family History Diabetes Heart attack Cancer Social History Smoking Status: Current every day smoker tobacco type: cigarettes packs per day: 1 second hand exposure: Yes alcohol intake: never substance use type: marijuana current occupational status: disabled Travel in the last 8 weeks?: None household members: family housing: house number of children: 2 current occupational exposures/hazards: No caffeine: Yes Have you lived/traveled outside [place] in past 30 days?: No Contact w/someone who lives/traveled outside US past 30 days?: No Exposure to someone with infectious disease in past 14 days?: No Do you have a fever (greater than 100.4 F or 38 C)?: No Have you tested positive for COVID-19?: No Exposed to someone with COVID-19 in past 14 days?: No Do you have a sore throat?: No Do you have a cough?: No Do you have any weakness?: No Do you have any diarrhea?: No Are you experiencing any unusual bleeding?: No Do you have any muscle aches/pain?: No Do you have any abdominal pain?: No Are you experiencing loss of taste or smell?: No Other Medical History Have you received the Flu Vaccine for this season: No Have you received the Pneumonia Vaccine: Yes <[facility] ([facility] ELECTROLYSIS INVESTIGATOR - Last Filed: 11/15/24 21:56> ROS Obtained: Yes Systems reviewed as appropriate & no additional complaints except as documented Constitutional Constitutional: Reports as per HPI Physical Exam <[facility]ilar [facility] ELECTROLYSIS INVESTIGATOR - Last Filed: 11/15/24 21:56> General General appearance: alert and in no apparent distress Head Head exam: normocephalic Eye Eye exam: Present PERRL and EOMI ENT ENT exam: Present normal oropharynx and mucous membranes moist Neck Neck exam: Present full ROM and trachea midline Chest Chest inspection: Present normal inspection Respiratory Respiratory exam: Present normal lung sounds bilaterally Cardiovascular Cardiovascular exam: Present regular rate, normal rhythm, +S1 and +S2 Abdominal Exam Abdominal exam: Present soft and normal bowel sounds Abdominal tenderness: Present diffuse and mild Extremities Exam Extremities exam: Present full ROM, normal capillary refill and edema Neurological Exam Neurological exam: Present alert, oriented X3 and normal gait Skin Skin exam: Present warm, dry and intact Medical Decision Making <Pilar [facility]), ELECTROLYSIS INVESTIGATOR - Last Filed: 11/15/24 21:56> Medical Records Screening: Per USPSTF and CDC recommendations, given the prevalence of disease in our region, it is our hospital?s policy to screen for HIV and viral Hepatitis for all patients aged 18 and over and those with ongoing risk factors. [place] Inquiry Pt receiving controlled substance: No [place] was queried for this patient: No Vital Signs: 11/15/24 19:35 11/15/24 20:31 11/15/24 21:43 Temperature 97.7 F Temperature Source Oral Pulse Rate 90 92 H Pulse Rate [Right] 88 Respiratory Rate 15 31 H Blood Pressure 153/78 H 150/84 H Blood Pressure [Right Arm] 145/78 H Blood Pressure Mean 89 106 Blood Pressure Mean [Right Arm] 100 Blood Pressure Source [Right Arm] Automatic Cuff Blood Pressure Position [Right Arm] Sitting 02 Sat by Pulse Oximetry 92 L 99 100 Oxygen Delivery Method Room Air 11/15/24 22:00 11/15/24 22:30 11/15/24 23:02 Temperature Temperature Source Pulse Rate 88 Pulse Rate [Right] Respiratory Rate 26 H 26 H 20 Blood Pressure 143/55 H 143/68 H 135/115 H Blood Pressure [Right Arm] Blood Pressure Mean 108 93 121 Blood Pressure Mean [Right Arm] Blood Pressure Source [Right Arm] Blood Pressure Position [Right Arm] 02 Sat by Pulse Oximetry 95 95 Oxygen Delivery Method 11/15/24 23:31 11/16/24 00:00 11/16/24 00:31 Temperature Temperature Source Pulse Rate 104 H 76 Pulse Rate [Right] Respiratory Rate 23 21 27 H Blood Pressure 125/79 122/73 111/71 Blood Pressure [Right Arm] Blood Pressure Mean 94 90 81 Blood Pressure Mean [Right Arm] Blood Pressure Source [Right Arm] Blood Pressure Position [Right Arm] 02 Sat by Pulse Oximetry 95 95 Oxygen Delivery Method 11/16/24 00:42 11/16/24 01:05 Temperature 98.1 F Temperature Source Pulse Rate 76 Pulse Rate [Right] Respiratory Rate 20 Blood Pressure 111/71 Blood Pressure [Right Arm] Blood Pressure Mean Blood Pressure Mean [Right Arm] Blood Pressure Source [Right Arm] Blood Pressure Position [Right Arm] 02 Sat by Pulse Oximetry 99 Oxygen Delivery Method Room Air Room Air Lab Data Lab Results 11/15/24 20:46: WBC 12.1 H, RBC 2.58 L, Hgb 7.1 L, Hct 24.8 L, MCV 96.1, MCH 27.5, MCHC 28.6 L, RDW 25.2 H*, Plt Count 274, MPV 12.0 H, Neut % (Auto) 93.3 H, Lymph % (Auto) 2.7 L, [place] % (Auto) 3.3, Eos % (Auto) 0.1, Baso % (Auto) 0.2, Neut # (Auto) 11.3 H, Lymph # (Auto) 0.3 L, [place] # (Auto) 0.4, Eos # (Auto) 0.0, Baso # (Auto) 0.0, Total Counted 100, Neutrophils % (Manual) 97 H, Lymphocytes % (Manual) 2 L, Monocytes % (Manual) 1 L, Platelet Estimate Normal, RBC Morphology Normal, Sodium 135 L, Potassium 6.3 H*, Chloride 109 H, Carbon Dioxide 10 L, Anion Gap 22.3 H, BUN 66 H, Creatinine 2.00 H, Estimated Creat Clear 42, Estimated GFR 25 L, Est GFR ( Amer) 31 L, Glucose 206 H, Calcium 8.7, Magnesium 2.2, Total Bilirubin 1.2, AST 40 H, ALT 137 H, Alkaline Phosphatase 280 H, Troponin I < 0.01, Total Protein 6.7, Albumin 3.6, Globulin 3.1, Albumin/Globulin Ratio 1.2, Lipase 248, SARS-CoV-2 (PCR) Not detected, Influenza A Untype (PCR) Not detected, Influenza Type B (PCR) Not detected 11/15/24 20:50: Hemoglobin A1c 5.5, NT-Pro-B Natriuret Pep 43163 H, TSH 6.53 H 11/15/24 21:42: VBG pH 7.14 L, VBG pCO2 36.0, VBG pO2 60.8 H, VBG HCO3 12.0 L, VBG Total CO2 13.1 L, VBG O2 Saturation 81.2 H, VBG Base Excess -17.0 L, VBG Lactic Acid 4.8 H 11/15/24 23:00: Sodium 135 L, Potassium 5.2 H, Chloride 110 H, Carbon Dioxide 9 L*, Anion Gap 21.2 H, BUN 64 H, Creatinine 2.00 H, Estimated Creat Clear 42, Estimated GFR 25 L, Est GFR ( Amer) 31 L, Glucose 228 H, Calcium 8.6, Total Bilirubin 0.9, AST 38 H, ALT 119 H, Alkaline Phosphatase 251 H, Troponin I < 0.01, Total Protein 5.9 L, Albumin 3.0 L D, Globulin 2.9, Albumin/Globulin Ratio 1.0 L 11/16/24 03:50 11/16/24 03:50 Orders (Tests/Meds): ED MEDICATIONS Generic Name Dose Route Start Last Admin Trade Name Freq PRN Reason Stop Dose Admin Amiodarone HCl 400 mg 11/16/24 09:00 11/16/24 08:39 Amiodarone 200mg Tablet PO 12/16/24 08:59 400 mg DAILY BIJAN Administration Bumetanide 2 mg 11/16/24 10:00 11/16/24 10:01 Bumetanide 1mg/4ml Vial IV 12/16/24 09:59 2 mg BIDL BIJAN Administration Citalopram Hydrobromide 20 mg 11/16/24 09:00 11/16/24 08:39 Citalopram 20mg Tablet PO 12/16/24 08:59 20 mg DAILY BIJAN Administration Doxycycline Hyclate 100 mg 11/16/24 09:05 11/16/24 10:04 Doxycycline Hycl 100 Mg Tablet PO 11/26/24 09:04 100 mg BID BIJAN Administration Ceftriaxone Sodium 1 gm/ 50 mls @ 100 mls/hr 11/16/24 02:00 11/16/24 03:25 Sodium Chloride IV 11/26/24 01:59 Infused Q24H BIJAN Infusion Sodium Chloride 250 mls @ 25 mls/hr 11/16/24 05:45 Sod Chlor 0.9% 250ml Bag IV 11/17/24 05:44 .Q10H BIJAN Sodium Chloride 250 mls @ 25 mls/hr 11/16/24 07:00 11/16/24 08:27 Sod Chlor 0.9% 250ml Bag IV 11/17/24 06:59 Not Given .Q10H BIJAN Insulin Human Lispro 0 unit 11/16/24 00:45 11/16/24 08:50 Humalog 100 Units/Ml 10ml Vial (Ssi) SUBCUT 12/16/24 00:44 Not Given Q4H [facility] Protocol Levothyroxine Sodium 25 mcg 11/16/24 09:00 11/16/24 08:39 Levothyroxine 25mcg (0.025mg) Tab PO 12/16/24 08:59 25 mcg DAILYDM BIJAN Administration Ondansetron HCl 4 mg 11/16/24 00:33 Ondansetron 4mg/2ml Vial IV 12/16/24 00:32 Q8HP PRN Nausea Sodium Chloride 10 ml 11/16/24 07:18 Sodium Chloride 0.9% 10ml Flush Syringe IV 12/16/24 07:17 NEEDED PRN Maintain IV Site Sodium Chloride 3 ml 11/16/24 09:02 11/16/24 09:47 Sodium Chloride 3% 15ml Neb IH 12/16/24 09:01 3 ml ONCE PRN Administration INDUCE [employer] Discontinued Medications Generic Name Dose Route Start Last Admin Trade Name Freq PRN Reason Stop Dose Admin Apixaban 5 mg 11/16/24 09:00 11/16/24 08:35 Apixaban 5mg Tablet PO 12/16/24 08:59 Not Given BID [facility] Clopidogrel Bisulfate 75 mg 11/16/24 09:00 11/16/24 08:36 Clopidogrel 75mg Tab PO 12/16/24 08:59 Not Given DAILY [facility] Dextrose 50 ml 11/15/24 21:14 11/15/24 21:44 Dextrose 50% 50ml Syringe (Crash Cart) IVP 11/15/24 21:15 50 ml ONCE ONE Administration Sodium Chloride 1,000 mls @ 999 mls/hr 11/15/24 20:30 11/15/24 23:37 Sod Chlor 0.9% 1000ml Bag IV 11/15/24 21:30 Infused .Q1H1M ONE Infusion Calcium Gluconate/Sodium Chloride 2 gm in 100 mls @ 50 mls/hr 11/15/24 21:15 11/15/24 23:59 Calcium Gluconate 2,000mg/100ml Nacl Premix IV 11/15/24 23:14 Infused ONCE ONE Infusion Sodium Chloride 1,000 mls @ 500 mls/hr 11/15/24 21:30 11/15/24 23:36 Sod Chlor 0.9% 1000ml Bag IV 11/15/24 23:29 Not Given .Q2H [facility] Insulin Glargine 5 unit 11/16/24 00:35 11/16/24 01:30 Insulin Glargine 100 Units/Ml 3ml Flexpen SUBCUT 11/16/24 00:36 5 units ONCE ONE Administration Insulin Human Regular 5 unit 11/15/24 21:14 11/15/24 21:44 Insulin Human Regular 100 Units/Ml 10ml Vial IVP 11/15/24 21:15 5 unit ONCE ONE Administration Iopamidol 75 ml 11/15/24 22:45 11/15/24 22:46 Iopamidol-370 (76%);100ml Bottle IV 11/15/24 22:46 75 ml ONCE ONE Administration Ondansetron HCl 4 mg 11/15/24 20:30 11/15/24 20:48 Ondansetron 4mg/2ml Vial IV 11/15/24 20:31 4 mg ONCE ONE Administration Sodium Bicarbonate 50 meq 11/16/24 00:17 11/16/24 00:23 Sodium Bicarb 8.4% 50ml Syringe (Crash Cart) IV 11/16/24 00:18 Not Given ONCE ONE Sodium Bicarbonate 50 meq 11/16/24 00:16 11/16/24 00:25 Sodium Bicarb 8.4% 50ml Syringe (Crash Cart) IV 11/16/24 00:17 50 meq ONCE ONE Administration Sodium Chloride 10 ml 11/15/24 22:45 11/15/24 22:46 Sodium Chloride 0.9% 10ml Syr (Rad Only) IV 12/15/24 22:44 10 ml NEEDED PRN Administration Maintain IV Site ORDERS Category Date Time Status CT abdomen pelvis w con Stat Cat Scan 11/15/24 22:[address] abdomen pelvis wo con Stat Cat Scan 11/15/24 20:33 Completed Chest XR -- portable [XR chest portable] Stat Exams 11/15/24 20:30 Completed POCUS Point of Care (ER Only) Stat Exams 11/15/24 22:54 Completed BNP [NT Pro Brain Natriuretic Pep.] Stat Lab 11/15/24 20:50 Completed CBC [Complete Blood Count Auto Diff] Stat Lab 11/15/24 20:46 Completed CMP [Comprehensive Metabolic Panel] Stat Lab 11/15/24 23:00 Completed Comprehensive Metabolic Panel Stat Lab 11/15/24 20:46 Completed Lipase Stat Lab 11/15/24 20:46 Completed Magnesium Stat Lab 11/15/24 20:46 Completed Rapid PCR Covid and Flu A/B Stat Lab 11/15/24 20:46 Completed Trop I [Troponin I] Stat Lab 11/15/24 20:46 Completed Troponin I Q3H Lab 11/15/24 23:00 Completed Troponin I Q3H Lab 11/16/24 03:50 Completed VBG [Venous Blood Gas] Stat RT 11/15/24 21:42 Completed Medical Decision Narrative: patient is a 64-year-old female presenting to the emergency department for evaluation of nausea and vomiting since early this morning. Patient is hemodynamically stable and nontoxic-appearing upon arrival, afebrile. Differential diagnosis includes viral illness, food poisoning, among others. Workup will be conducted with hematologic labs, specific imaging. Initial inventions include crystalloid bolus, analgesics. <Tito Madrid MD - Last Filed: 11/16/24 11:33> Vital Signs: 11/15/24 19:35 11/15/24 20:31 11/15/24 21:43 Temperature 97.7 F Temperature Source Oral Pulse Rate 90 92 H Pulse Rate [Right] 88 Respiratory Rate 15 31 H Blood Pressure 153/78 H 150/84 H Blood Pressure [Right Arm] 145/78 H Blood Pressure Mean 89 106 Blood Pressure Mean [Right Arm] 100 Blood Pressure Source [Right Arm] Automatic Cuff Blood Pressure Position [Right Arm] Sitting 02 Sat by Pulse Oximetry 92 L 99 100 Oxygen Delivery Method Room Air 11/15/24 22:00 11/15/24 22:30 11/15/24 23:02 Temperature Temperature Source Pulse Rate 88 Pulse Rate [Right] Respiratory Rate 26 H 26 H 20 Blood Pressure 143/55 H 143/68 H 135/115 H Blood Pressure [Right Arm] Blood Pressure Mean 108 93 121 Blood Pressure Mean [Right Arm] Blood Pressure Source [Right Arm] Blood Pressure Position [Right Arm] 02 Sat by Pulse Oximetry 95 95 Oxygen Delivery Method 11/15/24 23:31 11/16/24 00:00 11/16/24 00:31 Temperature Temperature Source Pulse Rate 104 H 76 Pulse Rate [Right] Respiratory Rate 23 21 27 H Blood Pressure 125/79 122/73 111/71 Blood Pressure [Right Arm] Blood Pressure Mean 94 90 81 Blood Pressure Mean [Right Arm] Blood Pressure Source [Right Arm] Blood Pressure Position [Right Arm] 02 Sat by Pulse Oximetry 95 95 Oxygen Delivery Method 11/16/24 00:42 11/16/24 01:05 Temperature 98.1 F Temperature Source Pulse Rate 76 Pulse Rate [Right] Respiratory Rate 20 Blood Pressure 111/71 Blood Pressure [Right Arm] Blood Pressure Mean Blood Pressure Mean [Right Arm] Blood Pressure Source [Right Arm] Blood Pressure Position [Right Arm] 02 Sat by Pulse Oximetry 99 Oxygen Delivery Method Room Air Room Air Lab Data Lab Results 11/15/24 20:46: WBC 12.1 H, RBC 2.58 L, Hgb 7.1 L, Hct 24.8 L, MCV 96.1, MCH 27.5, MCHC 28.6 L, RDW 25.2 H*, Plt Count 274, MPV 12.0 H, Neut % (Auto) 93.3 H, Lymph % (Auto) 2.7 L, [place] % (Auto) 3.3, Eos % (Auto) 0.1, Baso % (Auto) 0.2, Neut # (Auto) 11.3 H, Lymph # (Auto) 0.3 L, [place] # (Auto) 0.4, Eos # (Auto) 0.0, Baso # (Auto) 0.0, Total Counted 100, Neutrophils % (Manual) 97 H, Lymphocytes % (Manual) 2 L, Monocytes % (Manual) 1 L, Platelet Estimate Normal, RBC Morphology Normal, Sodium 135 L, Potassium 6.3 H*, Chloride 109 H, Carbon Dioxide 10 L, Anion Gap 22.3 H, BUN 66 H, Creatinine 2.00 H, Estimated Creat Clear 42, Estimated GFR 25 L, Est GFR ( Amer) 31 L, Glucose 206 H, Calcium 8.7, Magnesium 2.2, Total Bilirubin 1.2, AST 40 H, ALT 137 H, Alkaline Phosphatase 280 H, Troponin I < 0.01, Total Protein 6.7, Albumin 3.6, Globulin 3.1, Albumin/Globulin Ratio 1.2, Lipase 248, SARS-CoV-2 (PCR) Not detected, Influenza A Untype (PCR) Not detected, Influenza Type B (PCR) Not detected 11/15/24 20:50: Hemoglobin A1c 5.5, NT-Pro-B Natriuret Pep 52878 H, TSH 6.53 H 11/15/24 21:42: VBG pH 7.14 L, VBG pCO2 36.0, VBG pO2 60.8 H, VBG HCO3 12.0 L, VBG Total CO2 13.1 L, VBG O2 Saturation 81.2 H, VBG Base Excess -17.0 L, VBG Lactic Acid 4.8 H 11/15/24 23:00: Sodium 135 L, Potassium 5.2 H, Chloride 110 H, Carbon Dioxide 9 L*, Anion Gap 21.2 H, BUN 64 H, Creatinine 2.00 H, Estimated Creat Clear 42, Estimated GFR 25 L, Est GFR ( Amer) 31 L, Glucose 228 H, Calcium 8.6, Total Bilirubin 0.9, AST 38 H, ALT 119 H, Alkaline Phosphatase 251 H, Troponin I < 0.01, Total Protein 5.9 L, Albumin 3.0 L D, Globulin 2.9, Albumin/Globulin Ratio 1.0 L Orders (Tests/Meds): ED MEDICATIONS Generic Name Dose Route Start Last Admin Trade Name Ranjan PRN Reason Stop Dose Admin Amiodarone HCl 400 mg 11/16/24 09:00 11/16/24 08:39 Amiodarone 200mg Tablet PO 12/16/24 08:59 400 mg DAILY BIJAN Administration Bumetanide 2 mg 11/16/24 10:00 11/16/24 10:01 Bumetanide 1mg/4ml Vial IV 12/16/24 09:59 2 mg BIDL BIJAN Administration Citalopram Hydrobromide 20 mg 11/16/24 09:00 11/16/24 08:39 Citalopram 20mg Tablet PO 12/16/24 08:59 20 mg DAILY BIJAN Administration Doxycycline Hyclate 100 mg 11/16/24 09:05 11/16/24 10:04 Doxycycline Hycl 100 Mg Tablet PO 11/26/24 09:04 100 mg BID BIJAN Administration Ceftriaxone Sodium 1 gm/ 50 mls @ 100 mls/hr 11/16/24 02:00 11/16/24 03:25 Sodium Chloride IV 11/26/24 01:59 Infused Q24H BIJAN Infusion Sodium Chloride 250 mls @ 25 mls/hr 11/16/24 05:45 Sod Chlor 0.9% 250ml Bag IV 11/17/24 05:44 .Q10H BIJAN Sodium Chloride 250 mls @ 25 mls/hr 11/16/24 07:00 11/16/24 08:27 Sod Chlor 0.9% 250ml Bag IV 11/17/24 06:59 Not Given .Q10H BIJAN Insulin Human Lispro 0 unit 11/16/24 00:45 11/16/24 08:50 Humalog 100 Units/Ml 10ml Vial (Ssi) SUBCUT 12/16/24 00:44 Not Given Q4H [facility] Protocol Levothyroxine Sodium 25 mcg 11/16/24 09:00 11/16/24 08:39 Levothyroxine 25mcg (0.025mg) Tab PO 12/16/24 08:59 25 mcg DAILYDM BIJAN Administration Ondansetron HCl 4 mg 11/16/24 00:33 Ondansetron 4mg/2ml Vial IV 12/16/24 00:32 Q8HP PRN Nausea Sodium Chloride 10 ml 11/16/24 07:18 Sodium Chloride 0.9% 10ml Flush Syringe IV 12/16/24 07:17 NEEDED PRN Maintain IV Site Sodium Chloride 3 ml 11/16/24 09:02 11/16/24 09:47 Sodium Chloride 3% 15ml Neb IH 12/16/24 09:01 3 ml ONCE PRN Administration IN[employer]CE [employer] Discontinued Medications Generic Name Dose Route Start Last Admin Trade Name Freq PRN Reason Stop Dose Admin Apixaban 5 mg 11/16/24 09:00 11/16/24 08:35 Apixaban 5mg Tablet PO 12/16/24 08:59 Not Given BID [facility] Clopidogrel Bisulfate 75 mg 11/16/24 09:00 11/16/24 08:36 Clopidogrel 75mg Tab PO 12/16/24 08:59 Not Given DAILY [facility] Dextrose 50 ml 11/15/24 21:14 11/15/24 21:44 Dextrose 50% 50ml Syringe (Crash Cart) IVP 11/15/24 21:15 50 ml ONCE ONE Administration Sodium Chloride 1,000 mls @ 999 mls/hr 11/15/24 20:30 11/15/24 23:37 Sod Chlor 0.9% 1000ml Bag IV 11/15/24 21:30 Infused .Q1H1M ONE Infusion Calcium Gluconate/Sodium Chloride 2 gm in 100 mls @ 50 mls/hr 11/15/24 21:15 11/15/24 23:59 Calcium Gluconate 2,000mg/100ml Nacl Premix IV 11/15/24 23:14 Infused ONCE ONE Infusion Sodium Chloride 1,000 mls @ 500 mls/hr 11/15/24 21:30 11/15/24 23:36 Sod Chlor 0.9% 1000ml Bag IV 11/15/24 23:29 Not Given .Q2H [facility] Insulin Glargine 5 unit 11/16/24 00:35 11/16/24 01:30 Insulin Glargine 100 Units/Ml 3ml Flexpen SUBCUT 11/16/24 00:36 5 units ONCE ONE Administration Insulin Human Regular 5 unit 11/15/24 21:14 11/15/24 21:44 Insulin Human Regular 100 Units/Ml 10ml Vial IVP 11/15/24 21:15 5 unit ONCE ONE Administration Iopamidol 75 ml 11/15/24 22:45 11/15/24 22:46 Iopamidol-370 (76%);100ml Bottle IV 11/15/24 22:46 75 ml ONCE ONE Administration Ondansetron HCl 4 mg 11/15/24 20:30 11/15/24 20:48 Ondansetron 4mg/2ml Vial IV 11/15/24 20:31 4 mg ONCE ONE Administration Sodium Bicarbonate 50 meq 11/16/24 00:17 11/16/24 00:23 Sodium Bicarb 8.4% 50ml Syringe (Crash Cart) IV 11/16/24 00:18 Not Given ONCE ONE Sodium Bicarbonate 50 meq 11/16/24 00:16 11/16/24 00:25 Sodium Bicarb 8.4% 50ml Syringe (Crash Cart) IV 11/16/24 00:17 50 meq ONCE ONE Administration Sodium Chloride 10 ml 11/15/24 22:45 11/15/24 22:46 Sodium Chloride 0.9% 10ml Syr (Rad Only) IV 12/15/24 22:44 10 ml NEEDED PRN Administration Maintain IV Site ORDERS Category Date Time Status CT abdomen pelvis w con Stat Cat Scan 11/15/24 22:[address] abdomen pelvis wo con Stat Cat Scan 11/15/24 20:33 Completed Chest XR -- portable [XR chest portable] Stat Exams 11/15/24 20:30 Completed POCUS Point of Care (ER Only) Stat Exams 11/15/24 22:54 Completed BNP [NT Pro Brain Natriuretic Pep.] Stat Lab 11/15/24 20:50 Completed CBC [Complete Blood Count Auto Diff] Stat Lab 11/15/24 20:46 Completed CMP [Comprehensive Metabolic Panel] Stat Lab 11/15/24 23:00 Completed Comprehensive Metabolic Panel Stat Lab 11/15/24 20:46 Completed Lipase Stat Lab 11/15/24 20:46 Completed Magnesium Stat Lab 11/15/24 20:46 Completed Rapid PCR Covid and Flu A/B Stat Lab 11/15/24 20:46 Completed Trop I [Troponin I] Stat Lab 11/15/24 20:46 Completed Troponin I Q3H Lab 11/15/24 23:00 Completed Troponin I Q3H Lab 11/16/24 03:50 Completed VBG [Venous Blood Gas] Stat RT 11/15/24 21:42 Completed ECG Data Tracing #1: Independently interpreted by me rate is 92, rhythm is irregular, no ST elevation in anatomical contiguous leads, QTc 478 Medical Decision Narrative: patient is a 64-year-old female presenting to the emergency department for evaluation of nausea and vomiting since early this morning. Patient is hemodynamically stable and nontoxic-appearing upon arrival, afebrile. Differential diagnosis includes viral illness, food poisoning, among others. Workup will be conducted with hematologic labs, specific imaging. Initial inventions include crystalloid bolus, analgesics. Procedure: Procedure performed was ultrasound-guided IV placement. Procedure performed by Tito Madrid. Using real-time ultrasound guidance the left basilic vein was cannulated with a long peripheral 18 gauge IV. The vessel cannulated was patent. Images were not saved to permanent archive. Patient tolerated the procedure well. There were no immediate complications. Tito Madrid: Patient is a medically complex 64-year-old female past medical history of bladder cancer status post surgical intervention with ileal conduit, atrial fibrillation, CHF, endocarditis status post valve replacement, long-term care at assisted, CKD. She presented with severe abdominal pain and vomiting which may have been precipitated by her breakfast this morning. She has diffuse tender abdominal pain and is retching upon arrival. Given that patient has not tolerated any oral intake today she may be intravascularly deplete and will give gentle fluid resuscitation although extra vascularly she is volume overloaded recent review of [facility] chart determined that she has relative hypovolemia and is on midodrine for this and her recent STACY when she was transferred to [facility] was improved with volume resuscitation. Initial hematologic labs she has a chronic anemia does not need acute transfusion at this time is greater than 7, leukocytosis of 12, significant lactic acidosis in the setting of vomiting hyperkalemia which will be treated with insulin and glucose. Although I would suspect metabolic alkalosis with vomiting given her chronic history of heart failure and relative intravascular hypovolemia this combined with acute vomiting can explain elevated lactic acidosis, differential includes other things. BNP is significantly elevated will discontinue fluid resuscitation at this time. Patient's creatinine is 2 which is slightly better than her baseline significantly elevated BNP initial troponin undetectably low. Noncontrasted CT scan was conducted however patient will go back to CT with contrast scan given her severity of abdominal pain and complex medical history. Noncontrasted CT scan of the abdomen with inflammatory stranding and fluid in the pancreatic head and descending duodenum pancreatitis versus duodenitis with possible choledocholithiasis with 4.6 mm calcific density at the pancreatic head. Findings also compatible with heart failure. I discussed case with hospital medicine and they will evaluate to see if the patient is appropriate for facility. In the event that the patient is not appropriate for facility I also discussed the case with Dr. Obregon at [facility]. Patient is medically complex and he reviewed the chart and agrees with this. Dr. Hernandez's callback was pending at time of transfer care to the oncoming physician, Dr. Valenzuela. Nicolas GOODMAN: I assumed care of the patient at the time of handoff from the prior provider. After discussion with Dr. Hernandez, patient was admitted to the hospital for further evaluation and management. <Beto Valenzuela MD - Last Filed: 11/16/24 00:30> Vital Signs: 11/15/24 19:35 11/15/24 20:31 11/15/24 21:43 Temperature 97.7 F Temperature Source Oral Pulse Rate 90 92 H Pulse Rate [Right] 88 Respiratory Rate 15 31 H Blood Pressure 153/78 H 150/84 H Blood Pressure [Right Arm] 145/78 H Blood Pressure Mean 89 106 Blood Pressure Mean [Right Arm] 100 Blood Pressure Source [Right Arm] Automatic Cuff Blood Pressure Position [Right Arm] Sitting 02 Sat by Pulse Oximetry 92 L 99 100 Oxygen Delivery Method Room Air 11/15/24 22:00 11/15/24 22:30 11/15/24 23:02 Temperature Temperature Source Pulse Rate 88 Pulse Rate [Right] Respiratory Rate 26 H 26 H 20 Blood Pressure 143/55 H 143/68 H 135/115 H Blood Pressure [Right Arm] Blood Pressure Mean 108 93 121 Blood Pressure Mean [Right Arm] Blood Pressure Source [Right Arm] Blood Pressure Position [Right Arm] 02 Sat by Pulse Oximetry 95 95 Oxygen Delivery Method 11/15/24 23:31 11/16/24 00:00 11/16/24 00:31 Temperature Temperature Source Pulse Rate 104 H 76 Pulse Rate [Right] Respiratory Rate 23 21 27 H Blood Pressure 125/79 122/73 111/71 Blood Pressure [Right Arm] Blood Pressure Mean 94 90 81 Blood Pressure Mean [Right Arm] Blood Pressure Source [Right Arm] Blood Pressure Position [Right Arm] 02 Sat by Pulse Oximetry 95 95 Oxygen Delivery Method 11/16/24 00:42 11/16/24 01:05 Temperature 98.1 F Temperature Source Pulse Rate 76 Pulse Rate [Right] Respiratory Rate 20 Blood Pressure 111/71 Blood Pressure [Right Arm] Blood Pressure Mean Blood Pressure Mean [Right Arm] Blood Pressure Source [Right Arm] Blood Pressure Position [Right Arm] 02 Sat by Pulse Oximetry 99 Oxygen Delivery Method Room Air Room Air Lab Data Lab Results 11/15/24 20:46: WBC 12.1 H, RBC 2.58 L, Hgb 7.1 L, Hct 24.8 L, MCV 96.1, MCH 27.5, MCHC 28.6 L, RDW 25.2 H*, Plt Count 274, MPV 12.0 H, Neut % (Auto) 93.3 H, Lymph % (Auto) 2.7 L, [place] % (Auto) 3.3, Eos % (Auto) 0.1, Baso % (Auto) 0.2, Neut # (Auto) 11.3 H, Lymph # (Auto) 0.3 L, [place] # (Auto) 0.4, Eos # (Auto) 0.0, Baso # (Auto) 0.0, Total Counted 100, Neutrophils % (Manual) 97 H, Lymphocytes % (Manual) 2 L, Monocytes % (Manual) 1 L, Platelet Estimate Normal, RBC Morphology Normal, Sodium 135 L, Potassium 6.3 H*, Chloride 109 H, Carbon Dioxide 10 L, Anion Gap 22.3 H, BUN 66 H, Creatinine 2.00 H, Estimated Creat Clear 42, Estimated GFR 25 L, Est GFR ( Amer) 31 L, Glucose 206 H, Calcium 8.7, Magnesium 2.2, Total Bilirubin 1.2, AST 40 H, ALT 137 H, Alkaline Phosphatase 280 H, Troponin I < 0.01, Total Protein 6.7, Albumin 3.6, Globulin 3.1, Albumin/Globulin Ratio 1.2, Lipase 248, SARS-CoV-2 (PCR) Not detected, Influenza A Untype (PCR) Not detected, Influenza Type B (PCR) Not detected 11/15/24 20:50: Hemoglobin A1c 5.5, NT-Pro-B Natriuret Pep 35785 H, TSH 6.53 H 11/15/24 21:42: VBG pH 7.14 L, VBG pCO2 36.0, VBG pO2 60.8 H, VBG HCO3 12.0 L, VBG Total CO2 13.1 L, VBG O2 Saturation 81.2 H, VBG Base Excess -17.0 L, VBG Lactic Acid 4.8 H 11/15/24 23:00: Sodium 135 L, Potassium 5.2 H, Chloride 110 H, Carbon Dioxide 9 L*, Anion Gap 21.2 H, BUN 64 H, Creatinine 2.00 H, Estimated Creat Clear 42, Estimated GFR 25 L, Est GFR ( Amer) 31 L, Glucose 228 H, Calcium 8.6, Total Bilirubin 0.9, AST 38 H, ALT 119 H, Alkaline Phosphatase 251 H, Troponin I < 0.01, Total Protein 5.9 L, Albumin 3.0 L D, Globulin 2.9, Albumin/Globulin Ratio 1.0 L Orders (Tests/Meds): ED MEDICATIONS Generic Name Dose Route Start Last Admin Trade Name Freq PRN Reason Stop Dose Admin Amiodarone HCl 400 mg 11/16/24 09:00 11/16/24 08:39 Amiodarone 200mg Tablet PO 12/16/24 08:59 400 mg DAILY BIJAN Administration Bumetanide 2 mg 11/16/24 10:00 11/16/24 10:01 Bumetanide 1mg/4ml Vial IV 12/16/24 09:59 2 mg BIDL BIJAN Administration Citalopram Hydrobromide 20 mg 11/16/24 09:00 11/16/24 08:39 Citalopram 20mg Tablet PO 12/16/24 08:59 20 mg DAILY BIJAN Administration Doxycycline Hyclate 100 mg 11/16/24 09:05 11/16/24 10:04 Doxycycline Hycl 100 Mg Tablet PO 11/26/24 09:04 100 mg BID BIJAN Administration Ceftriaxone Sodium 1 gm/ 50 mls @ 100 mls/hr 11/16/24 02:00 11/16/24 03:25 Sodium Chloride IV 11/26/24 01:59 Infused Q24H BIJAN Infusion Sodium Chloride 250 mls @ 25 mls/hr 11/16/24 05:45 Sod Chlor 0.9% 250ml Bag IV 11/17/24 05:44 .Q10H BIJAN Sodium Chloride 250 mls @ 25 mls/hr 11/16/24 07:00 11/16/24 08:27 Sod Chlor 0.9% 250ml Bag IV 11/17/24 06:59 Not Given .Q10H BIJAN Insulin Human Lispro 0 unit 11/16/24 00:45 11/16/24 08:50 Humalog 100 Units/Ml 10ml Vial (Ssi) SUBCUT 12/16/24 00:44 Not Given Q4H [facility] Protocol Levothyroxine Sodium 25 mcg 11/16/24 09:00 11/16/24 08:39 Levothyroxine 25mcg (0.025mg) Tab PO 12/16/24 08:59 25 mcg DAILYDM BIJAN Administration Ondansetron HCl 4 mg 11/16/24 00:33 Ondansetron 4mg/2ml Vial IV 12/16/24 00:32 Q8HP PRN Nausea Sodium Chloride 10 ml 11/16/24 07:18 Sodium Chloride 0.9% 10ml Flush Syringe IV 12/16/24 07:17 NEEDED PRN Maintain IV Site Sodium Chloride 3 ml 11/16/24 09:02 11/16/24 09:47 Sodium Chloride 3% 15ml Neb IH 12/16/24 09:01 3 ml ONCE PRN Administration INDUCE SPUTUM [employer]LECTION Discontinued Medications Generic Name Dose Route Start Last Admin Trade Name Freq PRN Reason Stop Dose Admin Apixaban 5 mg 11/16/24 09:00 11/16/24 08:35 Apixaban 5mg Tablet PO 12/16/24 08:59 Not Given BID BIJAN Clopidogrel Bisulfate 75 mg 11/16/24 09:00 11/16/24 08:36 Clopidogrel 75mg Tab PO 12/16/24 08:59 Not Given DAILY BIJAN Dextrose 50 ml 11/15/24 21:14 11/15/24 21:44 Dextrose 50% 50ml Syringe (Crash Cart) IVP 11/15/24 21:15 50 ml ONCE ONE Administration Sodium Chloride 1,000 mls @ 999 mls/hr 11/15/24 20:30 11/15/24 23:37 Sod Chlor 0.9% 1000ml Bag IV 11/15/24 21:30 Infused .Q1H1M ONE Infusion Calcium Gluconate/Sodium Chloride 2 gm in 100 mls @ 50 mls/hr 11/15/24 21:15 11/15/24 23:59 Calcium Gluconate 2,000mg/100ml Nacl Premix IV 11/15/24 23:14 Infused ONCE ONE Infusion Sodium Chloride 1,000 mls @ 500 mls/hr 11/15/24 21:30 11/15/24 23:36 Sod Chlor 0.9% 1000ml Bag IV 11/15/24 23:29 Not Given .Q2H BIJAN Insulin Glargine 5 unit 11/16/24 00:35 11/16/24 01:30 Insulin Glargine 100 Units/Ml 3ml Flexpen SUBCUT 11/16/24 00:36 5 units ONCE ONE Administration Insulin Human Regular 5 unit 11/15/24 21:14 11/15/24 21:44 Insulin Human Regular 100 Units/Ml 10ml Vial IVP 11/15/24 21:15 5 unit ONCE ONE Administration Iopamidol 75 ml 11/15/24 22:45 11/15/24 22:46 Iopamidol-370 (76%);100ml Bottle IV 11/15/24 22:46 75 ml ONCE ONE Administration Ondansetron HCl 4 mg 11/15/24 20:30 11/15/24 20:48 Ondansetron 4mg/2ml Vial IV 11/15/24 20:31 4 mg ONCE ONE Administration Sodium Bicarbonate 50 meq 11/16/24 00:17 11/16/24 00:23 Sodium Bicarb 8.4% 50ml Syringe (Crash Cart) IV 11/16/24 00:18 Not Given ONCE ONE Sodium Bicarbonate 50 meq 11/16/24 00:16 11/16/24 00:25 Sodium Bicarb 8.4% 50ml Syringe (Crash Cart) IV 11/16/24 00:17 50 meq ONCE ONE Administration Sodium Chloride 10 ml 11/15/24 22:45 11/15/24 22:46 Sodium Chloride 0.9% 10ml Syr (Rad Only) IV 12/15/24 22:44 10 ml NEEDED PRN Administration Maintain IV Site ORDERS Category Date Time Status CT abdomen pelvis w con Stat Cat Scan 11/15/24 22:[address] abdomen pelvis wo con Stat Cat Scan 11/15/24 20:33 Completed Chest XR -- portable [XR chest portable] Stat Exams 11/15/24 20:30 Completed POCUS Point of Care (ER Only) Stat Exams 11/15/24 22:54 Completed BNP [NT Pro Brain Natriuretic Pep.] Stat Lab 11/15/24 20:50 Completed CBC [Complete Blood Count Auto Diff] Stat Lab 11/15/24 20:46 Completed CMP [Comprehensive Metabolic Panel] Stat Lab 11/15/24 23:00 Completed Comprehensive Metabolic Panel Stat Lab 11/15/24 20:46 Completed Lipase Stat Lab 11/15/24 20:46 Completed Magnesium Stat Lab 11/15/24 20:46 Completed Rapid PCR Covid and Flu A/B Stat Lab 11/15/24 20:46 Completed Trop I [Troponin I] Stat Lab 11/15/24 20:46 Completed Troponin I Q3H Lab 11/15/24 23:00 Completed Troponin I Q3H Lab 11/16/24 03:50 Completed VBG [Venous Blood Gas] Stat RT 11/15/24 21:42 Completed Medical Decision Narrative: patient is a 64-year-old female presenting to the emergency department for evaluation of nausea and vomiting since early this morning. Patient is hemodynamically stable and nontoxic-appearing upon arrival, afebrile. Differential diagnosis includes viral illness, food poisoning, among others. Workup will be conducted with hematologic labs, specific imaging. Initial inventions include crystalloid bolus, analgesics. Procedure: Procedure performed was ultrasound-guided IV placement. Procedure performed by Tito Madrid. Using real-time ultrasound guidance the left basilic vein was cannulated with a long peripheral 18 gauge IV. The vessel cannulated was patent. Images were not saved to permanent archive. Patient tolerated the procedure well. There were no immediate complications. Tito Madrid: Patient is a medically complex 64-year-old female past medical history of bladder cancer status post surgical intervention with ileal conduit, atrial fibrillation, CHF, endocarditis status post valve replacement, long-term care at assisted, CKD. She presented with severe abdominal pain and vomiting which may have been precipitated by her breakfast this morning. She has diffuse tender abdominal pain and is retching upon arrival. Given that patient has not tolerated any oral intake today she may be intravascularly deplete and will give gentle fluid resuscitation. Although she has a history of volume overload with heart failure she was in hypovolemic shock recently at [facility]. Initial hematologic labs she has a chronic anemia does not need acute transfusion at this time is greater than 7, leukocytosis of 12, significant lactic acidosis in the setting of vomiting hyperkalemia which will be treated with insulin and glucose. BNP is significantly elevated will discontinue fluid resuscitation at this time. Patient's creatinine is 2 which is slightly better than her baseline significantly elevated BNP initial troponin undetectably low. Noncontrasted CT scan was conducted however patient will go back to CT with contrast scan given her severity of abdominal pain and complex medical history. Noncontrasted CT scan of the abdomen with inflammatory stranding and fluid in the pancreatic head and descending duodenum pancreatitis versus duodenitis with possible choledocholithiasis with 4.6 mm calcific density at the pancreatic head. Findings also compatible with heart failure. Patient's lactic acidosis can be secondary due to longstanding poor nutrition which is noted in [facility]'s recent note with superimposed vomiting. I discussed case with hospital medicine and they will evaluate to see if the patient is appropriate for facility. In the event that the patient is not appropriate for facility I also discussed the case with Dr. Obregon at [facility]. Patient is medically complex and he reviewed the chart and agrees with this. Dr. Hernandez's callback was pending at time of transfer care to the oncoming physician, Dr. Valenzuela. Nicolas GOODMAN: I assumed care of the patient at the time of handoff from the prior provider. After discussion with Dr. Hernandez, patient was admitted to the hospital for further evaluation and management. Critical Care <Pilar Rodriguez ([email or web address]), ELECTROLYSIS INVESTIGATOR - Last Filed: 11/15/24 21:56> Critical Care Time Critical Care Time: No
--- NOTE | 2024-11-15 20:33 | CT_ITS ---
PROCEDURE INFORMATION: Exam: CT Abdomen And Pelvis Without Contrast Exam date and time: 11/15/2024 9:26 PM Age: 64 years old Clinical indication: Vomiting; Additional info: Vomit TECHNIQUE: Imaging protocol: Computed tomography of the abdomen and pelvis without contrast. Radiation optimization: All CT scans at this facility use at least one of these dose optimization techniques: automated exposure control; mA and/or kV adjustment per patient size (includes targeted exams where dose is matched to clinical indication); or iterative reconstruction. COMPARISON: CT ANGIO ABD/PEL - TRAUMA 10/12/2024 8:15 PM FINDINGS: Pleural spaces: No pneumothorax. Heart: Cardiac silhouette is enlarged. Liver: Normal. No mass. Gallbladder and biliary ducts: Possible choledocholithiasis related with 4.6 mm calcific density at the pancreatic head. Pancreas: Inflammatory stranding and fluid at the pancreatic head and descending duodenum may represent groove pancreatitis versus duodenitis. Spleen: Multiple benign-appearing calcific densities of the spleen. Adrenal glands: Hypoattenuating right adrenal nodule with internal density of <10 HU compatible with lipid rich adrenal adenoma measuring 19mm in diameter. Kidneys and ureters: Multiple Bosniak 1 renal cystic lesions defined as homogeneous and fluid density (-9 to 20 HU), no septations or calcifications, having cid smooth and thin. Largest cyst measures 3.0 cm. No follow-up recommended. Stomach and bowel: Right lower quadrant ostomy unchanged from prior exam. Appendix: No evidence of appendicitis. Intraperitoneal space: Moderate anasarca of the abdomen and pelvic soft tissues. Vasculature: There is prominence of the pulmonary vasculature with interstitial and bibasilar airspace opacities. Moderate calcific atherosclerotic disease of the abdominal aorta without aneurysmal dilatation is present. There is stenting of the distal aorta and iliac arteries. Moderate calcific atherosclerotic disease of the SMA resulting in moderate stenosis. Lymph nodes: Unremarkable. No enlarged lymph nodes. Urinary bladder: Unremarkable as visualized. Reproductive: The uterus appears surgically absent. Bones/joints: Right iliac, and inferior pubic ramus fractures with initial healing similar to prior exam. Moderate loss of intervertebral disc space with degenerative changes involving the lower thoracic and lumbar spine. Soft tissues: Normal. IMPRESSION: 1. Inflammatory stranding and fluid at the pancreatic head and descending duodenum may represent groove pancreatitis versus duodenitis. Possible choledocholithiasis related pancreatitis with 4.6 mm calcific density at the pancreatic head. Consider further evaluation with MRCP. 2. Constitution of findings compatible with moderate CHF in the appropriate clinical setting. COMMENTS: 1. Consistent with the [employer]'s Incidental Findings Committee white paper (J Am Richard Radiol 2017): For any incidental adrenal lesion greater than or equal to 1 cm but less than or equal to 4 cm classified in this report as benign, likely benign, or containing fat (including classification as an adenoma or myelolipoma), no follow-up imaging is recommended per consensus recommendations based on imaging criteria. Further lab evaluation could be pursued if warranted based on clinical findings. 2. Consistent with the [employer]'s Incidental Findings Committee white paper (J Am Richard Radiol 2018): Any incidental renal lesion less than 1 cm or classified as too small to characterize, or any incidental cystic renal lesion characterized as simple-appearing, is likely benign. No follow-up imaging is recommended for these lesions per consensus recommendations based on imaging criteria.
[2024-11-15] MEDS: 0.9 % SODIUM CHLORIDE 1000ML 1,000 ML 999 ML IV (20:47)
[2024-11-15] MEDS: ONDANSETRON 4MG/2ML VIAL 4 MG IV (20:48)
--- NOTE | 2024-11-15 20:52 | ECG_ITS ---
APPROVED REPORT Exam: Resting ECG HR:92 bpm ECG Measurements Heart Rate 92 AXES QRSd 127 QRS 124 QT 428 T 108 QTc 478 Conclusion ATRIAL FIBRILLATION WITH ABERRANT CONDUCTION OR VENTRICULAR PREMATURE COMPLEXES RIGHT AXIS DEVIATION [QRS AXIS > 100] MODERATE INTRAVENTRICULAR CONDUCTION DELAY [105+ ms QRS DURATION, 80+ ms Q/S IN V1/V2, NO Q AND 60+ ms R IN I/aVL/V5/V6] MINIMAL ST DEPRESSION [0.025+ mV ST DEPRESSION] PROLONGED QT INTERVAL ABNORMAL ECG UNCONFIRMED REPORT Electronically signed by : TIANNA YATES, 11/15/2024 23:58:40
[2024-11-15 20:58] LABS: Coronavirus 19, PCR Not Detected (NotDetected); Influenza A, PCR Not Detected (NotDetected); Influenza B, PCR Not Detected (NotDetected)
[2024-11-15 21:04] LABS: Hematocrit 24.8 % (37.0-47.0); Hemoglobin 7.1 g/dL (12.2-16.2); Immature Granulocytes % 0.4 %; Mean Corpuscular HGB Conc 28.6 g/dL (31.8-35.4); Mean Corpuscular Hemoglobin 27.5 pg (27.0-31.2); Mean Corpuscular Volume 96.1 fl (81-99); Nucleated Red Blood Cells % 0 %; Platelet Count 274 K/mm3 (142-424); Red Blood Count 2.58 M/mm3 (4.20-5.40); Red Cell Distribution Width-SD 87.1 fL; White Blood Count 12.1 K/mm3 (4.8-10.8)
[2024-11-15 21:08] LABS: Alanine Aminotransferase 137 U/L (12-78); Albumin Level 3.6 g/dl (3.5-5.0); Albumin/Globulin Ratio 1.2 (1.1-1.8); Alkaline Phosphatase 280 U/L (38-126); Anion Gap 22.3 mEq/L (5-15); Aspartate Amino Transferase 40 U/L (14-36); Bilirubin,Total 1.2 mg/dl (0.2-1.3); Blood Urea Nitrogen 66 mg/dl (7-17); Calcium 8.7 mg/dl (8.4-10.2); Chloride 109 mmol/L (98-107); Creatinine Clearance Estimated 42 mL/min (50-200); Creatinine,Serum 2.00 mg/dl (0.52-1.04); Estimated Glomerular Filt Rate 25 ml/min (>60); GFR (African American) 31 ML/MIN (>60); Globulin 3.1 g/dL (1.3-3.2); Glucose 206 mg/dl (74-100); Lipase 248 U/L (23-300); Magnesium 2.2 mg/dl (1.6-2.3); Sodium 135 mmol/L (136-145); Total Protein,Serum 6.7 g/dl (6.3-8.2)
[2024-11-15 21:11] LABS: Carbon Dioxide 10 mmol/L (22.0-30.0); Potassium 6.3 mmoL/L (3.5-5.1)
[2024-11-15 21:22] LABS: Troponin I < 0.01 ng/ml (0.00-0.034)
[2024-11-15] MEDS: INSULIN HUMAN REGULAR 100 UNITS/ML 10ML VIAL 5 UNIT IVP (21:44)
[2024-11-15] MEDS: CALCIUM GLUC IN NACL, ISO-OSM 2 GM/100 ML BAG IV (21:44)
[2024-11-15] MEDS: DEXTROSE 50% 50ML SYRINGE (CRASH CART) 50 ML IVP (21:44)
[2024-11-15 21:46] LABS: RBC Morphology Normal; Total Cells Counted 100
[2024-11-15 21:50] LABS: VBG HCO3 12.0 mmol/L (23-30); VBG PCO2 36.0 mmol/L (35-51); VBG PO2 60.8 mmol/L (28-40)
[2024-11-15 21:53] LABS: Lactate Venous 4.8 mmol/L (0.4-2.0); VBG PH 7.14 mmol/L (7.31-7.41)
--- NOTE | 2024-11-15 21:53 | PC.NURSE ---
critical called from RT notified
[2024-11-15 22:24] LABS: NT Pro Brain Natriuretic Pep. 33100 pg/mL (0-125)
--- NOTE | 2024-11-15 22:31 | CT_ITS ---
PROCEDURE INFORMATION: Exam: CT Abdomen And Pelvis With Contrast Exam date and time: 11/15/2024 10:37 PM Age: 64 years old Clinical indication: Vomiting; Abdominal pain; Additional info: Diffuse abd pain, acidosis, vomiting TECHNIQUE: Imaging protocol: Computed tomography of the abdomen and pelvis with contrast. Total images: 332 Radiation optimization: All CT scans at this facility use at least one of these dose optimization techniques: automated exposure control; mA and/or kV adjustment per patient size (includes targeted exams where dose is matched to clinical indication); or iterative reconstruction. Contrast material: ISOVUE; Contrast volume: 75 ml; Contrast route: IV; COMPARISON: CT ABDOMEN PELVIS WO CON 11/15/2024 9:26 PM FINDINGS: Tubes, catheters and devices: Left subclavian cardiac pacemaker. Lungs: Right lower lobe compressive atelectasis. Left lower lobe pneumonia. Probable mild interstitial edema. Pleural spaces: Small to moderate bilateral pleural effusions, larger on the right. Heart: Upper normal heart size with left atrial dilatation. Coronary arteries: Coronary artery calcifications. Liver: Hepatic steatosis with lobulated contour concerning for cirrhosis. No gross liver mass on this nondedicated exam. Gallbladder and biliary ducts: Partially contracted gallbladder. No bile duct dilatation. Pancreas: Peripancreatic edema greatest at the pancreatic head. Spleen: Calcified splenic granuloma. No splenomegaly. Adrenal glands: 17 mm right adrenal nodule. Kidneys and ureters: Bilateral renal atrophy and cortical scarring. Small bilateral renal cortical cysts. No hydronephrosis. Stomach and bowel: Wall thickening the gastric antrum and duodenum. No ileus or bowel obstruction. Prior distal small bowel anastomoses. Mild colonic stool burden. Mild colonic wall thickening. Unremarkable rectum. Appendix: Normal appendix. Intraperitoneal space: Mesenteric root edema. Trace ascites. No free intraperitoneal air. Vasculature: Severe atherosclerotic vascular disease. Endovascular stents in the distal aorta and bilateral common iliac arteries. Dilated portal veins. No portal thrombus. Lymph nodes: Unremarkable. No enlarged lymph nodes. Urinary bladder: Completely collapsed versus absent urinary bladder. Reproductive: Status post hysterectomy. Bones/joints: Status post median sternotomy. Osteopenia. Multilevel severe degenerative changes of the lumbar spine. Mild lumbar dextrocurvature. Mild degenerative changes bilateral hips. Subacute healing fracture deformities of the right superior and inferior pubic rami with callus formation. Additional healing subacute fracture of the right ilium, cephalad to the acetabulum. Soft tissues: Considerable body wall edema/anasarca. Very large right lower quadrant abdominal wall hernia. Multiple small additional right and left lower quadrant abdominal wall hernias. IMPRESSION: 1. Overall, no significant change from recent noncontrast enhanced study performed earlier today. 2. Peripancreatic and mesenteric root edema implying acute pancreatitis versus sequela anasarca/3rd spacing. Please correlate with lipase values. 3. Wall thickening of the gastric antrum and duodenum concerning for acute gastroduodenitis. 4. Considerable anasarca/3rd spacing. 5. Bilateral pleural effusions. 6. Left lower lobe pneumonia 7. Right lower lobe compressive atelectasis 8. Possible liver cirrhosis 9. Large right lower quadrant abdominal wall hernia containing small bowel and colonic loops without obstruction. 10. Small quantity ascites. 11. Generalized mild colonic wall thickening from incomplete distension versus or early colitis. Please correlate with clinical symptoms. 12. Subacute healing fractures of the pelvis. COMMENTS: Consistent with the [employer]'s Incidental Findings Committee white paper (J Am Richard Radiol 2018): Any incidental renal lesion less than 1 cm or classified as too small to characterize, or any incidental cystic renal lesion characterized as simple-appearing, is likely benign. No follow-up imaging is recommended for these lesions per consensus recommendations based on imaging criteria.
[2024-11-15] MEDS: SODIUM CHLORIDE 0.9% 10ML SYR (RAD ONLY) 10 ML IV (22:46)
[2024-11-15] MEDS: IOPAMIDOL-370 (76%);100ML BOTTLE 75 ML IV (22:46)
--- NOTE | 2024-11-15 23:16 | PC.NURSE ---
Spoke with [facility], awaiting a call back at this time
[2024-11-15 23:39] LABS: Alanine Aminotransferase 119 U/L (12-78); Albumin Level 3.0 g/dl (3.5-5.0); Albumin/Globulin Ratio 1.0 (1.1-1.8); Alkaline Phosphatase 251 U/L (38-126); Anion Gap 21.2 mEq/L (5-15); Aspartate Amino Transferase 38 U/L (14-36); Bilirubin,Total 0.9 mg/dl (0.2-1.3); Blood Urea Nitrogen 64 mg/dl (7-17); Calcium 8.6 mg/dl (8.4-10.2); Chloride 110 mmol/L (98-107); Creatinine Clearance Estimated 42 mL/min (50-200); Creatinine,Serum 2.00 mg/dl (0.52-1.04); Estimated Glomerular Filt Rate 25 ml/min (>60); GFR (African American) 31 ML/MIN (>60); Globulin 2.9 g/dL (1.3-3.2); Glucose 228 mg/dl (74-100); Potassium 5.2 mmoL/L (3.5-5.1); Sodium 135 mmol/L (136-145); Total Protein,Serum 5.9 g/dl (6.3-8.2)
[2024-11-15 23:46] LABS: Carbon Dioxide 9 mmol/L (22.0-30.0)
--- NOTE | 2024-11-15 23:47 | PC.NURSE ---
critical called from MD ryan notified
[2024-11-15 23:53] LABS: Troponin I < 0.01 ng/ml (0.00-0.034)
[2024-11-16] VITALS (15 sets, daily range): BP systolic 101–143; BP diastolic 57–79; PULSE 76–110; RESP 15–27; TEMP 36.3–36.7; O2SAT 92–100; BMI 27.8
[2024-11-16] MEDS: SODIUM BICARB 8.4% 50ML SYRINGE (CRASH CART) 50 MEQ IV (00:25)
--- NOTE | 2024-11-16 00:37 | EXP.HP ---
History of Present Illness *Admission Date: 11/16/24 *Reason for visit:: nausea and vomiting *History of present illness: Ms. Cronin is a 64-year-old female with extensive history of CAD, CHF, CABG, urostomy, bioprosthetic mitral valve, CKD 3, insulin-dependent diabetes. She presented to the ER via EMS from [facility] for intractable nausea and vomiting that began today. Denies fever or diarrhea. Glucose on arrival was 238. Initial workup found VBG with pH of 7.14, pCO2 of 36. Lactate of 4.8. Chemistry with potassium 6.3, sodium 135. Anion gap 22. Creatinine 2.0, BUN 66. Liver enzymes abnormal with AST of 40, ALT 137, alk phos 280. BNP 3300. Lipase 248. CT of the abdomen shows concern for calcified possible stone near pancreatic head. Treated for hyperkalemia with some improvement to 5.2. Bicarb remains low at 9 with anion gap of 21. Medicine consulted for admission and further management of electrolyte disturbances and metabolic acidosis. On evaluation, concern for DKA component given patient is no longer wearing a pump. States she has had her basal insulin but does not recall if she has had short acting insulin today. Her constellation of symptoms would fit with DKA, versus gastroenteritis, versus pancreatitis. Will administer 1 amp of bicarb and initiated on sliding scale insulin every 4 hours with fingersticks every 4 hours scheduled. Interactive on exam, answering questions slowly but appropriately. Stable on room air. Afebrile. Tolerating p.o. liquids on evaluation. [facility] Disclaimer: The information contained in this section may have been updated after the patient was seen, as this information can be updated by other users. Medical History CKD (chronic kidney disease) STACY (acute kidney injury) Fracture of pubic ramus Anemia Generalized weakness Diabetes mellitus Pulmonary embolism Neuropathic pain Failure to thrive Shock Impaired ambulation Self-care deficit Marijuana smoker Pulmonary embolism on left Smoking greater than 30 pack years Pulmonary emphysema Chronic kidney disease Atrial fibrillation Acute respiratory failure with hypoxia Pleural effusion on right Chronic endocarditis Acute on chronic HFrEF (heart failure with reduced ejection fraction) Coronary artery disease Right kidney mass Pancreatic mass Dental abscess Pain, dental Hematuria Nausea vomiting and diarrhea Hypovolemia Infection due to extended-spectrum [id number]-qvgyyohig Klebsiella pneumoniae Yeast infection of the vagina STACY (acute kidney injury) Cellulitis Candidiasis Presence of urostomy Vitamin D deficiency Bacterial endocarditis Obesity (BMI 30.0-34.9) Gastroenteritis due to norovirus Bacteremia Pacemaker Bladder cancer Diarrhea UTI (urinary tract infection) Dehydration Abscess of skin or subcutaneous tissue Valvular heart disease Palpitations Myocardial infarction HTN (hypertension), benign Depression CHF (congestive heart failure) Anxiety PAD (peripheral artery disease) Abnormal ankle brachial index (GOMEZ) HHD (hypertensive heart disease) HLD (hyperlipidemia) Carotid bruit Carotid artery stenosis Surgical History S/P ileal conduit (~12/2020) H/O tricuspid valve repair History of insertion of stent into coronary artery bypass graft History of urostomy Hx of cholecystectomy H/O: hysterectomy Hx of tonsillectomy History of mitral valve replacement S/P left atrial appendage ligation AICD (automatic cardioverter/defibrillator) present History of coronary artery bypass graft Family History Diabetes Heart attack Cancer Social History Smoking Status: Current every day smoker tobacco type: cigarettes packs per day: 1 second hand exposure: Yes alcohol intake: never substance use type: marijuana current occupational status: disabled Travel in the last 8 weeks?: None household members: family housing: house number of children: 2 current occupational exposures/hazards: No caffeine: Yes Have you lived/traveled outside [place] in past 30 days?: No Contact w/someone who lives/traveled outside US past 30 days?: No Exposure to someone with infectious disease in past 14 days?: No Do you have a fever (greater than 100.4 F or 38 C)?: No Have you tested positive for COVID-19?: No Exposed to someone with COVID-19 in past 14 days?: No Do you have a sore throat?: No Do you have a cough?: No Do you have any weakness?: No Do you have any diarrhea?: No Are you experiencing any unusual bleeding?: No Do you have any muscle aches/pain?: No Do you have any abdominal pain?: No Are you experiencing loss of taste or smell?: No Other Medical History Have you received the Flu Vaccine for this season: No Have you received the Pneumonia Vaccine: Yes Review of Systems Review of Systems Review of systems (narrative): 14 point review of systems performed, pertinent positives and negatives as per HPI Meds Home Medications and Allergies Home Medications ?Medication ?Instructions ?Recorded ?Confirmed ?Type torsemide 20 mg tablet 20 mg PO DAILY 30 days #30 tabs 03/20/24 11/11/24 Rx Held on 10/06/24. Instructions: Resume on 10/09/24. Acute kidney injury. blood sugar diagnostic (True #10 ea 04/22/24 11/11/24 History Metrix Glucose Test Strip) blood-glucose sensor (Dexcom G7 #1 ea 04/22/24 11/11/24 History Sensor device) insulin syringe-needle U-100 1 mL #10 ea 04/22/24 11/11/24 History 31 gauge x 5/16 insulin lispro 100 unit/mL 0 unit SQ DIRECTED INSULIN PUMP 07/02/24 11/11/24 History subcutaneous solution albuterol sulfate 90 mcg/actuation 2 inh inhalation QID PRN shortness 07/09/24 11/11/24 Rx aerosol inhaler of breath or wheezing 90 days #8.5 grams sacubitril 24 mg-valsartan 26 mg 1 tab PO BID 10/05/24 11/11/24 History tablet (Entresto) Held on 10/06/24. Instructions: Resume on 10/09/24. Acute kidney injury. insulin glargine 100 unit/mL (3 10 unit (0.1 mL) SQ HS #3 mL 10/06/24 11/11/24 Rx mL) subcutaneous pen (Lantus Solostar U-100 Insulin) pantoprazole 40 mg tablet,delayed 40 mg PO DAILY 10/07/24 11/11/24 History release (Protonix) amiodarone 200 mg tablet 400 mg PO DAILY 10/08/24 11/11/24 History apixaban 5 mg tablet (Eliquis) 5 mg PO BID 10/08/24 11/11/24 History atorvastatin 40 mg tablet (Lipitor) 40 mg PO HS 10/08/24 11/11/24 History cariprazine 1.5 mg capsule 1.5 mg PO DAILY 10/08/24 11/11/24 History (Vraylar) citalopram 20 mg tablet 20 mg PO DAILY 10/08/24 11/11/24 History clopidogrel 75 mg tablet 75 mg PO DAILY 10/08/24 11/11/24 History levothyroxine 25 mcg capsule 25 mcg PO DAILY 10/08/24 11/11/24 History ondansetron HCl 4 mg tablet 4 mg PO Q6H PRN 10/08/24 11/11/24 History ropinirole 1 mg tablet 1 mg PO HS 10/08/24 11/11/24 History trazodone 50 mg tablet 50 mg PO QHS 10/08/24 11/11/24 History alprazolam 0.5 mg tablet 0.5 mg PO BID #60 tabs 10/12/24 11/11/24 Rx hydrocodone 5 mg-acetaminophen 325 1 tab PO Q6H PRN pain #30 tabs 11/02/24 11/11/24 Rx mg tablet New Prescriptions to Start Prescriptions: Allergies Allergy/AdvReac Type Severity Reaction Status Date / Time No Known Allergies Allergy Verified 11/11/24 08:38 Exam Data for Last 24 hours Vital signs and Labs for Last 24 Hours: Temp Pulse Resp BP Pulse Ox O2 Del Method 97.7 F 88 15 145/78 H 92 L Room Air 11/15/24 19:35 11/15/24 19:35 11/15/24 19:35 11/15/24 19:35 11/15/24 19:35 11/15/24 19:35 Laboratory Results - last 24 hr 11/15/24 20:46: WBC 12.1 H, RBC 2.58 L, Hgb 7.1 L, Hct 24.8 L, MCV 96.1, MCH 27.5, MCHC 28.6 L, RDW 25.2 H*, Plt Count 274, MPV 12.0 H, Neut % (Auto) 93.3 H, Lymph % (Auto) 2.7 L, Sunflower % (Auto) 3.3, Eos % (Auto) 0.1, Baso % (Auto) 0.2, Neut # (Auto) 11.3 H, Lymph # (Auto) 0.3 L, Sunflower # (Auto) 0.4, Eos # (Auto) 0.0, Baso # (Auto) 0.0, Total Counted 100, Neutrophils % (Manual) 97 H, Lymphocytes % (Manual) 2 L, Monocytes % (Manual) 1 L, Platelet Estimate Normal, RBC Morphology Normal, Sodium 135 L, Potassium 6.3 H*, Chloride 109 H, Carbon Dioxide 10 L, Anion Gap 22.3 H, BUN 66 H, Creatinine 2.00 H, Estimated Creat Clear 42, Estimated GFR 25 L, Est GFR ( Amer) 31 L, Glucose 206 H, Calcium 8.7, Magnesium 2.2, Total Bilirubin 1.2, AST 40 H, ALT 137 H, Alkaline Phosphatase 280 H, Troponin I < 0.01, Total Protein 6.7, Albumin 3.6, Globulin 3.1, Albumin/Globulin Ratio 1.2, Lipase 248, SARS-CoV-2 (PCR) Not detected, Influenza A Untype (PCR) Not detected, Influenza Type B (PCR) Not detected 11/15/24 20:50: NT-Pro-B Natriuret Pep 30899 H 11/15/24 21:42: VBG pH 7.14 L, VBG pCO2 36.0, VBG pO2 60.8 H, VBG HCO3 12.0 L, VBG Total CO2 13.1 L, VBG O2 Saturation 81.2 H, VBG Base Excess -17.0 L, VBG Lactic Acid 4.8 H 11/15/24 23:00: Sodium 135 L, Potassium 5.2 H, Chloride 110 H, Carbon Dioxide 9 L*, Anion Gap 21.2 H, BUN 64 H, Creatinine 2.00 H, Estimated Creat Clear 42, Estimated GFR 25 L, Est GFR ( Amer) 31 L, Glucose 228 H, Calcium 8.6, Total Bilirubin 0.9, AST 38 H, ALT 119 H, Alkaline Phosphatase 251 H, Troponin I < 0.01, Total Protein 5.9 L, Albumin 3.0 L D, Globulin 2.9, Albumin/Globulin Ratio 1.0 L I & O for Last 24 hours: Intake & Output 11/13/24 11/14/24 11/15/24 11/16/24 23:59 23:59 23:59 23:59 Intake Total 1100 / 1100 Balance 1100 / 1100 Weight 90.718 kg Constitutional Constitutional: moderate distress, obese, chronically ill appearing and cooperative *Routine HEENT Exam Head: Present normocephalic Eye: Present EOMI and PERRL ENT: Present mucous membranes moist *Routine Neck Exam Neck: Present supple; Absent lymphadenopathy *Routine Respiratory Exam Respiratory: Present CTA bilaterally; Absent rhonchi, wheezes or crackles *Routine Cardiovascular Exam Cardiovascular: Present RRR *Routine Abdominal Exam Abdominal: Present soft, normoactive bowel sounds, tenderness (Nonfocal), distended and hernia (At site of urostomy) Comments: Urostomy viable *Routine Rectal Exam Rectal:: deferred *Routine Genitalia Exam Genitalia:: deferred *Routine Extremities Exam Extremities: Present edema (2+ to knees); Absent cyanosis or clubbing *Routine Skin Exam Skin: Present intact and warm; Absent rash *Routine Neurological Exam Neurological: Present alert, oriented X3 and moving all extremities; Absent altered mental status Comments: Does appear fatigued however. Assessment and Plan *Assessment and plan (1) Hyperkalemia: Status: Acute Category: Medical Code(s): E87.5 - Hyperkalemia (2) High anion gap metabolic acidosis: Status: Acute Category: Medical Code(s): E87.29 - Other acidosis (3) Diabetic ketoacidosis: Status: Acute Category: Medical Code(s): E11.10 - Type 2 diabetes mellitus with ketoacidosis without coma (4) Acute on chronic HFrEF (heart failure with reduced ejection fraction): Status: Acute Category: Medical Code(s): I50.23 - Acute on chronic systolic (congestive) heart failure (5) Status post mitral valve replacement: Status: Acute Category: Surgical Code(s): Z95.2 - Presence of prosthetic heart valve (6) Chronic endocarditis: Status: Acute Qualifiers: Endocarditis type: infective Infective endocarditis organism: bacterial Qualified Code(s): I33.0 - Acute and subacute infective endocarditis Category: Medical Code(s): I38 - Endocarditis, valve unspecified (7) Anemia: Status: Acute Qualifiers: Anemia type: unspecified type Qualified Code(s): D64.9 - Anemia, unspecified Category: Medical Code(s): D64.9 - Anemia, unspecified (8) T2DM (type 2 diabetes mellitus): Status: Deleted Qualifiers: Chronic kidney disease stage: stage 3 (moderate) Chronic kidney disease stage 3 subtype: stage 3a (GFR 45-59) Diabetes mellitus complication detail: with chronic kidney disease Diabetes mellitus complication status: with kidney complications Diabetes mellitus fpc insulin use: with moth 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 use Qualified Code(s): E11.22 - Type 2 diabetes mellitus with diabetic chronic kidney disease; N18.31 - Chronic kidney disease, stage 3a; Z79.4 - MCC (current) use of insulin Category: Medical Code(s): E11.9 - Type 2 diabetes mellitus without complications (9) CAD (coronary artery disease): Status: Deleted Qualifiers: Associated angina: with other forms of angina Coronary Disease-Associated Artery/Lesion type: [place] artery [place] vs. transplanted heart: [place] heart Qualified Code(s): I25.118 - Atherosclerotic heart disease of [place] coronary artery with other forms of angina pectoris Category: Medical Code(s): I25.10 - Atherosclerotic heart disease of [place] coronary artery without angina pectoris (10) Paroxysmal atrial fibrillation: Status: Acute Category: Medical Code(s): I48.0 - Paroxysmal atrial fibrillation (11) CKD (chronic kidney disease): Status: Acute Qualifiers: Chronic kidney disease stage: stage 3 (moderate) Chronic kidney disease stage 3 subtype: stage 3a (GFR 45-59) Qualified Code(s): N18.31 - Chronic kidney disease, stage 3a Category: Medical Code(s): N18.9 - Chronic kidney disease, unspecified (12) Hypothyroidism (acquired): Status: Chronic Category: Medical Code(s): E03.9 - Hypothyroidism, unspecified Plan Laxmi Cronin is a 64-year-old female with a medical history significant for CAD s/p 2 stents 12/13/2023, HFrEF 40%, CABG 2016, AICD, A-fib s/p maze and MILLY clip, bioprosthetic mitral valve replacement with history of chronic endocarditis on penicillin daily (unsure if she is still on antibiotics at this time, used to follow with ID, lost to follow-up), CKD 3A, insulin-dependent diabetes. She presented with nausea and vomiting x 2 days. Found to have high anion gap metabolic acidosis, hyperkalemia. Concern for elevated BNP. Given her multiple metabolic disturbances, she was treated for hyperkalemia in the ER. As she is showing improvement in her kidney function while that is at her baseline, medicine was consulted for admission and further management. After discussion with the ER physician, requested admission for correction of her electrolyte disturbances and evaluation by GI for possible pancreatic calcification. Decided to admit to stepdown level of care. Will initiate on sliding scale insulin every 4 hours. Resume basal insulin. Tolerating p.o. intake and alert and interactive on exam. Appears better than her labs suggest. Requiring inpatient management. Problems addressed as follows: High anion gap metabolic acidosis Suspected DKA Nausea and vomiting Suspected pneumonia Hyperkalemia -Will initiate medium intensity sliding scale insulin every 4 hours. Fingersticks every 4 hours. - pH of 7.14, pCO2 of 36. Lactate of 4.8. Chemistry with potassium 6.3, sodium 135. Anion gap 22. Creatinine 2.0, BUN 66. Liver enzymes abnormal with AST of 40, ALT 137, alk phos 280. BNP 3300. Lipase 248. - CT of abdomen per my review shows concern for calcified possible stone near pancreatic head. - Treated for hyperkalemia with some improvement to 5.2. Bicarb remains low at 9 with anion gap of 21. Medicine consulted for admission and further management of electrolyte disturbances and metabolic acidosis. -White count is elevated, concern for potential pneumonia based on CT findings. Initiate ceftriaxone 1 g IV daily - On room air, goal sats greater 90%. - Most recent A1c less than 7, repeat pending - Potassium elevated 6.3 on arrival, responded to dextrose, insulin, calcium. - Improved level of 5.2. Monitor for improvement with treatment of DKA. Repeat CMP, CBC, magnesium ordered for 6 AM. Acute on chronic HFrEF Pleural effusion Paroxysmal A-fib - BNP elevated at 33,000. Does have peripheral edema. In the acute setting however will hold on diuresis. Reevaluate in the morning - CT of abdomen pelvis shows bilateral pleural effusions and concern for left lower lobe pneumonia. - Concern for cirrhosis on CT abdomen pelvis, Peripancreatic edema with 4.6 mm calcified density at the pancreatic head concerning for choledocholithiasis - Echo obtained in March of this year with reduced ejection fraction of 35 to 40%. Severe hypokinesis in the distal inferoseptal and apical LV cid. No evidence of MV mobile echodensities. Biatrial dilatation - Last cath performed in March of this year with the following findings: Severe disease in the saphenous vein graft limb supplying the LAD; Successful stenting of the saphenous vein graft severe disease reduced to 0% with 1 drug-eluting stent -Continue Plavix 75 mg daily, Eliquis 5 mg twice daily - Resume amiodarone 400 mg daily - Reevaluate Entresto in the pending stabilization of blood pressure and electrolyte disturbances Hypothyroid: Continue levothyroxine 25 mcg daily #Acute on chronic anemia -Hemoglobin 7.1, transfusion threshold hemoglobin less than 7. - To be earlier this year showed AVM was ablated. Had atrophic gastritis. AVMs suspected source of her blood loss chronically - Consider IV iron #CKD stage III ? Stable, BUN 64, creatinine 2.0. Continue to monitor with daily labs Full code DVT prophylaxis: Eliquis 5 mg twice daily diabetic diet
--- NOTE | 2024-11-16 01:06 | PC.NURSE ---
pt to icu unit via stretcher at [id number]
[2024-11-16 01:17] LABS: POC Glucose,Bedside 196 gm/dL (70-110)
[2024-11-16] MEDS: humaLOG 100 UNITS/ML 10ML VIAL (SSI) SUBCUT ×3 (01:29→05:57)
[2024-11-16] MEDS: INSULIN GLARGINE 100 UNITS/ML 3ML FLEXPEN 5 UNIT SUBCUT (01:30)
[2024-11-16 01:37] LABS: Thyroid Stimulating Hormone 6.53 uIU/mL (0.465-4.68)
[2024-11-16 01:52] LABS: Reflex Lactic Add Lactic Reflex
[2024-11-16 03:30] LABS: Hemoglobin A1C 5.5 % (4.0-6.0)
[2024-11-16 04:09] LABS: Hematocrit 22.3 % (37.0-47.0); Immature Granulocytes % 0.4 %; Mean Corpuscular HGB Conc 28.7 g/dL (31.8-35.4); Mean Corpuscular Hemoglobin 27.4 pg (27.0-31.2); Mean Corpuscular Volume 95.3 fl (81-99); Nucleated Red Blood Cells % 0 %; Platelet Count 278 K/mm3 (142-424); Red Blood Count 2.34 M/mm3 (4.20-5.40); Red Cell Distribution Width-SD 86.8 fL; White Blood Count 13.4 K/mm3 (4.8-10.8)
[2024-11-16 04:16] LABS: Hemoglobin 6.4 g/dL (12.2-16.2)
[2024-11-16 04:22] LABS: VBG HCO3 14.1 mmol/L (23-30); VBG PCO2 34.8 mmol/L (35-51); VBG PH 7.23 mmol/L (7.31-7.41); VBG PO2 137.4 mmol/L (28-40)
[2024-11-16 04:26] LABS: Lactate Venous 3.9 mmol/L (0.4-2.0)
[2024-11-16 04:45] LABS: Albumin Level 3.0 g/dl (3.5-5.0); Chloride 109 mmol/L (98-107); Potassium 5.2 mmoL/L (3.5-5.1)
[2024-11-16 05:58] LABS: POC Glucose,Bedside 157 gm/dL (70-110)
[2024-11-16 06:29] LABS: Troponin I < 0.01 ng/ml (0.00-0.034)
--- NOTE | 2024-11-16 07:47 | SW/DCPLANNER ---
Addendum entered by Marsha Sims 11/18/24 10:54: I have updated Cat shah/ Deirdre Mccarthy that patient may return this afternoon ICF level of care. Original Note: Patient currently resides at [facility] level of care. Updated patient information will be faxed to Cat shah/ Deirdre Mccarthy today. Discharge date is unknown. CM will continue to follow up.
[2024-11-16] MEDS: LEVOTHYROXINE 25MCG (0.025MG) TAB 25 MCG PO (08:39)
[2024-11-16] MEDS: AMIODARONE 200MG TABLET 400 MG PO (08:39)
[2024-11-16] MEDS: CITALOPRAM 20MG TABLET 20 MG PO (08:39)
--- NOTE | 2024-11-16 09:46 | P.CONPHA_ITS ---
Pharmacy Intervention Comments: MEDICATION RECONCILIATION COMPLETED ON PATIENT USING MAR FROM CUSTODIAL. -RISHABH JACOB, ANNELISED
--- NOTE | 2024-11-16 09:46 | HMH.PHAINT1 ---
Pharmacy Intervention Comments: MEDICATION RECONCILIATION COMPLETED ON PATIENT USING MAR FROM RETIREMENT. -RISHABH JACOB, ANNELISED
[2024-11-16] MEDS: SODIUM CHLORIDE 3% 15ML NEB 3 ML IH (09:47)
--- NOTE | 2024-11-16 09:48 | CA_ITS ---
APPROVED REPORT EXAM: Comprehensive 2D, Doppler, and color-flow Echocardiogram with contrast [employer] Learning Consultant: Belen [employer] CRT Ht: 5 ft 1 in Wt: 147lbs BSA: 1.66 BP: 131/71 mmHg Indications: Congestive Heart Failure, MVR Bioprosthetic with pannus formation on BROCK 04/21/24 EF 40% Echo Enhancing Agent Indication: Endocardial border delineation Agent(s) / Amount(s) Used: Definity 2 cc Comments: Definity given 2D Dimensions LA Volume 68.50 mL LA Volume Index 40.30 mL/m2 (M/F) 16-34 M-Mode Dimensions RVDd 3.00 cm (0.9-2.6) LA Diam 5.13 cm (1.9-4.0) LVDd 4.34 cm (3.5-5.7) LVDs 3.35 cm (3.5-5.7) IVSd 1.16 cm (0.6-1.1) PWd 1.62 cm (0.6-1.1) EF (Teich) 46.10% FS 22.80% EDV (Teich) 84.90 mL TAPSE 1.98 (<1.7) ESV (Teich) 45.80 mL Aortic Valve AI PHT 74.00 ms AO Peak GR. 4.00 mmHg Mitral Valve MV Mean Gr. 5.90 (<2mmHg) MV PHT 41.0 ms Pulmonary Valve PV Peak Velocity 203.0 (50-150 cm/s) Tricuspid Valve TR P. Velocity 280.00 cm/s RAP Estimate 10.00 mmHg RVSP 41.40 mmHg Left Ventricle The left ventricle is normal size. Left ventricular systolic function is severely reduced. There is increased left ventricular wall thickness. There is severe global hypokinesis present The left ventricular diastolic function is indeterminate. No left ventricle thrombus noted on this study. LVEF is 25%. Right Ventricle The right ventricle is mildly dilated. The right ventricular systolic function is mildly reduced. There is a device lead in the right ventricle. Atria The left atrium is moderately dilated. The right atrium is moderately dilated. There is no color Doppler evidence of interatrial shunt. Aortic Valve The aortic valve is mildly thickened. There is no hemodynamically significant aortic valvular stenosis. Trace aortic regurgitation is present. Mitral Valve s/p bioprosthetic MV replacement. The prosthesis is well-seated. Mean MV gradient is 7 mmHg (HR 106 bpm). Mild mitral regurgitation is present. Tricuspid Valve The tricuspid valve leaflets are thin and pliable. Mild tricuspid regurgitation. RVSP is 30-35 mmHg. Pulmonic Valve The pulmonary valve is grossly normal in structure. Mild pulmonic valve regurgitation is present. Great Vessels The aortic root is normal in size. IVC is normal in size and collapses >50% with inspiration. Pericardium There is no pericardial effusion. Other Information Study Quality: Fair Conclusion Severe reduction in LV systolic function (LVEF 25%). Moderate RV dilation with moderate reduction in RV function. Biatrial dilation. s/p bioprosthetic MV replacement. The prosthesis is well-seated. Mean MV gradient 7 mmHg (HR 106 bpm). Mild MR, mild TR, mild PI. Electronically signed by : Deanna Fowler MD 11/17/2024 12:04:50
[2024-11-16] MEDS: BUMETANIDE 1MG/4ML VIAL 2 MG IV ×2 (10:01→16:15)
[2024-11-16] MEDS: DOXYCYCLINE HYCL 100 MG TABLET PO ×2 (10:04→20:21)
--- NOTE | 2024-11-16 11:12 | PC.NURSE ---
Addendum entered by Marsha Owusu RN 11/16/24 18:27: also relayed to md on morning rounds that patient had obvious blood in stool in report from panel fitter nurse and aide. in report panel fitter stated md had canceled occult stool since blood could be visibly seen. no bm on shift before transfer to floor. Original Note: per dr swenson dc the eliquis and plavix, orders placed for cardiology and echo. bumex given. urostomy bag placed to ferreira for monitoring of urine. noted swelling bilateral feet. noted to be sleepy. sister called about patient.
[2024-11-16 11:35] LABS: Thyroid Stimulating Hormone 6.26 uIU/mL (0.465-4.68)
--- NOTE | 2024-11-16 11:42 | PC.NURSE ---
report call to rita raygoza
[2024-11-16] MEDS: DEFINITY US ECHO CONTRAST 2ML INJ 2 MG IV (11:54)
--- NOTE | 2024-11-16 12:02 | PC.NURSE ---
pt left the unit with med surg staff to go to the 2nd floor
[2024-11-16 12:58] LABS: Alanine Aminotransferase 129 U/L (12-78); Albumin/Globulin Ratio 1.0 (1.1-1.8); Alkaline Phosphatase 271 U/L (38-126); Anion Gap 24.2 mEq/L (5-15); Aspartate Amino Transferase 41 U/L (14-36); Bilirubin,Total 0.9 mg/dl (0.2-1.3); Blood Urea Nitrogen 64 mg/dl (7-17); Calcium 8.7 mg/dl (8.4-10.2); Creatinine Clearance Estimated 31 mL/min (50-200); Creatinine,Serum 2.00 mg/dl (0.52-1.04); Estimated Glomerular Filt Rate 25 ml/min (>60); GFR (African American) 31 ML/MIN (>60); Globulin 2.9 g/dL (1.3-3.2); Glucose 151 mg/dl (74-100); Magnesium 2.2 mg/dl (1.6-2.3); Phosphorous 5.0 mg/dl (2.5-4.5); Sodium 138 mmol/L (136-145); Total Protein,Serum 5.9 g/dl (6.3-8.2)
[2024-11-16 13:04] LABS: Carbon Dioxide 10 mmol/L (22.0-30.0)
[2024-11-16 13:26] LABS: POC Glucose,Bedside 57 gm/dL (70-110)
--- NOTE | 2024-11-16 13:27 | EXP.GE.CONS ---
History of Present Illness *Admission Date: 11/16/24 *History of present illness: Ms. Cronin is a 64-year-old female with extensive history of CAD, CHF, CABG, urostomy, bioprosthetic mitral valve, CKD 3, insulin-dependent diabetes. She presented to the ER via EMS from [facility] for intractable nausea and vomiting that began today. Denies fever or diarrhea. Glucose on arrival was 238. Initial workup found VBG with pH of 7.14, pCO2 of 36. Lactate of 4.8. Chemistry with potassium 6.3, sodium 135. Anion gap 22. Creatinine 2.0, BUN 66. Liver enzymes abnormal with AST of 40, ALT 137, alk phos 280. BNP 3300. Lipase 248. CT of the abdomen shows concern for calcified possible stone near pancreatic head. Treated for hyperkalemia with some improvement to 5.2. Bicarb remains low at 9 with anion gap of 21. Medicine consulted for admission and further management of electrolyte disturbances and metabolic acidosis. On evaluation, concern for DKA component given patient is no longer wearing a pump. States she has had her basal insulin but does not recall if she has had short acting insulin today. Her constellation of symptoms would fit with DKA, versus gastroenteritis, versus pancreatitis. Will administer 1 amp of bicarb and initiated on sliding scale insulin every 4 hours with fingersticks every 4 hours scheduled. Interactive on exam, answering questions slowly but appropriately. Stable on room air. Afebrile. Tolerating p.o. liquids on evaluation. per admission H&P This is a 64-year-old female [facility] patient who was admitted with complaints of intractable nausea and vomiting. Patient reports complete resolution of the symptoms. She denies any diarrhea or other GI complaints. She is able to eat and drink appropriately today. CT noted peripancreatic edema versus anasarca and noted large amount of anasarca throughout abdomen. She did have mild evidence of ascites. History of hepatic steatosis but nodular liver concerning for cirrhosis. She does have elevations of her liver enzymes with a bilirubin of 1.2, AST of 40, ALT of 137 and alk phos of 280. Patient has had intermittent elevations of her liver enzymes over the years particularly mild elevation of AST and alkaline phosphatase. 4.6 cm calcified density in the pancreatic head. She did have hypodense lesion noted on CT in 2020 at the pancreatic head of 2.6 x 1.7 cm. Lipase was 248. Patient denies any abdominal pain. Nausea vomiting resolved. She is asymptomatic on exam. Patient does have acute on chronic anemia. Hemoglobin dropped as low as 6.4 during admission awaiting 2 units packed red cells (patient has antibodies). Underwent panendoscopy with Dr. Lock March 2024 for the same issue. She does have chronic atrophic gastritis and did have a cecal angiodysplasia status post APC ablation. CT also noted possible colonic wall thickening concerning for colitis but she has no abdominal pain and no diarrhea. Wall thickening of the gastric antrum and duodenum concerning for acute gastroduodenitis but nausea vomiting has resolved patient is otherwise asymptomatic. She denies melena or hematochezia. [facility] Disclaimer: The information contained in this section may have been updated after the patient was seen, as this information can be updated by other users. Medical History CKD (chronic kidney disease) STACY (acute kidney injury) Fracture of pubic ramus Anemia Generalized weakness Diabetes mellitus Pulmonary embolism Neuropathic pain Failure to thrive Shock Impaired ambulation Self-care deficit Marijuana smoker Pulmonary embolism on left Smoking greater than 30 pack years Pulmonary emphysema Chronic kidney disease Atrial fibrillation Acute respiratory failure with hypoxia Pleural effusion on right Chronic endocarditis Acute on chronic HFrEF (heart failure with reduced ejection fraction) Coronary artery disease Right kidney mass Pancreatic mass Dental abscess Pain, dental Hematuria Nausea vomiting and diarrhea Hypovolemia Infection due to extended-spectrum [id number] Klebsiella pneumoniae Yeast infection of the vagina STACY (acute kidney injury) Cellulitis Candidiasis Presence of urostomy Vitamin D deficiency Bacterial endocarditis Obesity (BMI 30.0-34.9) Gastroenteritis due to norovirus Bacteremia Pacemaker Bladder cancer Diarrhea UTI (urinary tract infection) Dehydration Abscess of skin or subcutaneous tissue Valvular heart disease Palpitations Myocardial infarction HTN (hypertension), benign Depression CHF (congestive heart failure) Anxiety PAD (peripheral artery disease) Abnormal ankle brachial index (GOMEZ) HHD (hypertensive heart disease) HLD (hyperlipidemia) Carotid bruit Carotid artery stenosis Surgical History S/P ileal conduit (~12/2020) H/O tricuspid valve repair History of insertion of stent into coronary artery bypass graft History of urostomy Hx of cholecystectomy H/O: hysterectomy Hx of tonsillectomy History of mitral valve replacement S/P left atrial appendage ligation AICD (automatic cardioverter/defibrillator) present History of coronary artery bypass graft Family History Diabetes Heart attack Cancer Social History Smoking Status: Current every day smoker tobacco type: cigarettes packs per day: 1 second hand exposure: Yes alcohol intake: never substance use type: marijuana current occupational status: disabled Travel in the last 8 weeks?: None household members: family housing: house number of children: 2 current occupational exposures/hazards: No caffeine: Yes Have you lived/traveled outside [place] in past 30 days?: No Contact w/someone who lives/traveled outside US past 30 days?: No Exposure to someone with infectious disease in past 14 days?: No Do you have a fever (greater than 100.4 F or 38 C)?: No Have you tested positive for COVID-19?: No Exposed to someone with COVID-19 in past 14 days?: No Do you have a sore throat?: No Do you have a cough?: No Do you have any weakness?: No Do you have any diarrhea?: No Are you experiencing any unusual bleeding?: No Do you have any muscle aches/pain?: No Do you have any abdominal pain?: No Are you experiencing loss of taste or smell?: No Review of Systems Review of Systems Review of systems:: pertinent systems reviewed and negative unless documented below Constitutional Constitutional: Reports system reviewed and no additional complaints, except as documented Eyes Eyes: Reports system reviewed and no additional complaints, except as documented ENT Ears, Nose, Mouth, and Throat: Reports system reviewed and no additional complaints, except as documented *Cardiovascular Cardiovascular: Reports system reviewed and no additional complaints, except as documented and Reports pedal edema *Respiratory Respiratory: Reports system reviewed and no additional complaints, except as documented *Gastrointestinal Gastrointestinal: Reports system reviewed and no additional complaints, except as documented *Genitourinary Genitourinary: Reports system reviewed and no additional complaints, except as documented *Musculoskeletal Musculoskeletal: Reports system reviewed and no additional complaints, except as documented Meds Home Medications and Allergies Home Medications ?Medication ?Instructions ?Recorded ?Confirmed ?Type blood sugar diagnostic (True #10 ea 04/22/24 11/11/24 History Metrix Glucose Test Strip) blood-glucose sensor (Dexcom G7 #1 ea 04/22/24 11/11/24 History Sensor device) insulin syringe-needle U-100 1 mL #10 ea 04/22/24 11/11/24 History 31 gauge x 5/16 insulin lispro 100 unit/mL 0 unit SQ DIRECTED 07/02/24 11/16/24 History subcutaneous solution albuterol sulfate 90 mcg/actuation 2 inh inhalation QID PRN shortness 07/09/24 11/16/24 Rx aerosol inhaler of breath or wheezing 90 days #8.5 grams insulin glargine 100 unit/mL (3 10 unit (0.1 mL) SQ HS #3 mL 10/06/24 11/16/24 Rx mL) subcutaneous pen (Lantus Solostar U-100 Insulin) pantoprazole 40 mg tablet,delayed 40 mg PO HS 10/07/24 11/16/24 History release (Protonix) amiodarone 200 mg tablet 400 mg PO DAILY 10/08/24 11/16/24 History apixaban 5 mg tablet (Eliquis) 5 mg PO BID 10/08/24 11/16/24 History atorvastatin 40 mg tablet (Lipitor) 40 mg PO HS 10/08/24 11/16/24 History citalopram 20 mg tablet 20 mg PO HS 10/08/24 11/16/24 History clopidogrel 75 mg tablet 75 mg PO DAILY 10/08/24 11/16/24 History levothyroxine 25 mcg capsule 25 mcg PO DAILY 10/08/24 11/16/24 History ondansetron HCl 4 mg tablet 4 mg PO Q6HP PRN Nausea And 10/08/24 11/16/24 History Vomiting ropinirole 1 mg tablet 1 mg PO HS 10/08/24 11/16/24 History alprazolam 0.25 mg tablet 0.25 mg PO BID 11/16/24 11/16/24 History amino acids-protein hydrolysate 17 1 ea PO DAILY 11/16/24 11/16/24 History gram-100 kcal/30 mL liquid packet (Pro-Stat AWC) cyanocobalamin (vitamin B-12) 100 100 mcg PO DAILY 11/16/24 11/16/24 History mcg tablet folic acid 1 mg tablet 1 mg PO DAILY 11/16/24 11/16/24 History hydrocodone 5 mg-acetaminophen 325 1 tab PO Q6HP PRN Moderate Pain 11/16/24 11/16/24 History mg tablet (Scale Score 5-6) midodrine 10 mg tablet 10 mg PO BID 11/16/24 11/16/24 History mirtazapine 15 mg tablet 15 mg PO HS 11/16/24 11/16/24 History penicillin V potassium 250 mg 250 mg PO BID 11/16/24 11/16/24 History tablet New Prescriptions to Start Prescriptions: Allergies Allergy/AdvReac Type Severity Reaction Status Date / Time No Known Allergies Allergy Verified 11/11/24 08:38 Exam (Inpt) Vital signs and Labs for Last 24 Hours: Temp Pulse Resp BP Pulse Ox O2 Del Method 97.5 F L 101 H 18 101/57 L 100 Room Air 11/16/24 12:00 11/16/24 12:00 11/16/24 12:00 11/16/24 12:00 11/16/24 12:00 11/16/24 12:00 Laboratory Results - last 24 hr 11/15/24 20:46: WBC 12.1 H, RBC 2.58 L, Hgb 7.1 L, Hct 24.8 L, MCV 96.1, MCH 27.5, MCHC 28.6 L, RDW 25.2 H*, Plt Count 274, MPV 12.0 H, Neut % (Auto) 93.3 H, Lymph % (Auto) 2.7 L, Banks % (Auto) 3.3, Eos % (Auto) 0.1, Baso % (Auto) 0.2, Neut # (Auto) 11.3 H, Lymph # (Auto) 0.3 L, Banks # (Auto) 0.4, Eos # (Auto) 0.0, Baso # (Auto) 0.0, Total Counted 100, Neutrophils % (Manual) 97 H, Lymphocytes % (Manual) 2 L, Monocytes % (Manual) 1 L, Platelet Estimate Normal, RBC Morphology Normal, Sodium 135 L, Potassium 6.3 H*, Chloride 109 H, Carbon Dioxide 10 L, Anion Gap 22.3 H, BUN 66 H, Creatinine 2.00 H, Estimated Creat Clear 42, Estimated GFR 25 L, Est GFR ( Amer) 31 L, Glucose 206 H, Calcium 8.7, Magnesium 2.2, Total Bilirubin 1.2, AST 40 H, ALT 137 H, Alkaline Phosphatase 280 H, Troponin I < 0.01, Total Protein 6.7, Albumin 3.6, Globulin 3.1, Albumin/Globulin Ratio 1.2, Lipase 248, SARS-CoV-2 (PCR) Not detected, Influenza A Untype (PCR) Not detected, Influenza Type B (PCR) Not detected 11/15/24 20:50: Hemoglobin A1c 5.5, NT-Pro-B Natriuret Pep 41834 H, TSH 6.53 H 11/15/24 21:42: VBG pH 7.14 L, VBG pCO2 36.0, VBG pO2 60.8 H, VBG HCO3 12.0 L, VBG Total CO2 13.1 L, VBG O2 Saturation 81.2 H, VBG Base Excess -17.0 L, VBG Lactic Acid 4.8 H 11/15/24 23:00: Sodium 135 L, Potassium 5.2 H, Chloride 110 H, Carbon Dioxide 9 L*, Anion Gap 21.2 H, BUN 64 H, Creatinine 2.00 H, Estimated Creat Clear 42, Estimated GFR 25 L, Est GFR ( Amer) 31 L, Glucose 228 H, Calcium 8.6, Total Bilirubin 0.9, AST 38 H, ALT 119 H, Alkaline Phosphatase 251 H, Troponin I < 0.01, Total Protein 5.9 L, Albumin 3.0 L D, Globulin 2.9, Albumin/Globulin Ratio 1.0 L 11/16/24 01:10: POC Glucose 196 H 11/16/24 03:50: WBC 13.4 H, RBC 2.34 L, Hgb 6.4 L*, Hct 22.3 L, MCV 95.3, MCH 27.4, MCHC 28.7 L, RDW 25.2 H*, Plt Count 278, MPV 11.5 H, Neut % (Auto) 90.3 H, Lymph % (Auto) 4.0 L, Banks % (Auto) 5.2, Eos % (Auto) 0.0 L, Baso % (Auto) 0.1, Neut # (Auto) 12.1 H, Lymph # (Auto) 0.5 L, Banks # (Auto) 0.7, Eos # (Auto) 0.0, Baso # (Auto) 0.0, VBG pH 7.23 L, VBG pCO2 34.8 L, VBG pO2 137.4 H, VBG HCO3 14.1 L, VBG Total CO2 15.2 L, VBG O2 Saturation 98.8 H, VBG Base Excess -13.5 L, VBG Lactic Acid 3.9 H, Sodium 138, Potassium 5.2 H, Chloride 109 H, Carbon Dioxide 10 L D, Anion Gap 24.2 H, BUN 64 H, Creatinine 2.00 H, Estimated Creat Clear 31, Estimated GFR 25 L, Est GFR ( Amer) 31 L, Glucose 151 H D, Calcium 8.7, Phosphorus 5.0 H, Magnesium 2.2, Total Bilirubin 0.9, AST 41 H, ALT 129 H, Alkaline Phosphatase 271 H, Troponin I < 0.01, Total Protein 5.9 L, Albumin 3.0 L, Globulin 2.9, Albumin/Globulin Ratio 1.0 L, TSH 6.26 H 11/16/24 04:41: Blood Type O Positive, Antibody Screen Positive 11/16/24 05:51: POC Glucose 157 H 11/16/24 12:56: POC Glucose 57 L I & O for Labs for Last 24 Hours: Intake & Output 11/14/24 11/15/24 11/16/24 11/17/24 11:59 11:59 11:59 11:59 Intake Total 1150 Output Total 1130 Balance 20 Weight 66.95 kg Constitutional: no acute distress and cooperative Head: Present normocephalic and atraumatic Respiratory: Present rhonchi (Bilateral upper lung priest) Cardiac: Present Reg Rate and Rhythm GI: Present soft, distention (Mild to moderate soft distention) and normal bowel sounds; Absent tenderness Results Labs 11/16/24 03:50 11/16/24 03:50 Labs: Laboratory Results - last 24 hr 11/15/24 20:46: WBC 12.1 H, RBC 2.58 L, Hgb 7.1 L, Hct 24.8 L, MCV 96.1, MCH 27.5, MCHC 28.6 L, RDW 25.2 H*, Plt Count 274, MPV 12.0 H, Neut % (Auto) 93.3 H, Lymph % (Auto) 2.7 L, Banks % (Auto) 3.3, Eos % (Auto) 0.1, Baso % (Auto) 0.2, Neut # (Auto) 11.3 H, Lymph # (Auto) 0.3 L, Banks # (Auto) 0.4, Eos # (Auto) 0.0, Baso # (Auto) 0.0, Total Counted 100, Neutrophils % (Manual) 97 H, Lymphocytes % (Manual) 2 L, Monocytes % (Manual) 1 L, Platelet Estimate Normal, RBC Morphology Normal, Sodium 135 L, Potassium 6.3 H*, Chloride 109 H, Carbon Dioxide 10 L, Anion Gap 22.3 H, BUN 66 H, Creatinine 2.00 H, Estimated Creat Clear 42, Estimated GFR 25 L, Est GFR ( Amer) 31 L, Glucose 206 H, Calcium 8.7, Magnesium 2.2, Total Bilirubin 1.2, AST 40 H, ALT 137 H, Alkaline Phosphatase 280 H, Troponin I < 0.01, Total Protein 6.7, Albumin 3.6, Globulin 3.1, Albumin/Globulin Ratio 1.2, Lipase 248, SARS-CoV-2 (PCR) Not detected, Influenza A Untype (PCR) Not detected, Influenza Type B (PCR) Not detected 11/15/24 20:50: Hemoglobin A1c 5.5, NT-Pro-B Natriuret Pep 80578 H, TSH 6.53 H 11/15/24 21:42: VBG pH 7.14 L, VBG pCO2 36.0, VBG pO2 60.8 H, VBG HCO3 12.0 L, VBG Total CO2 13.1 L, VBG O2 Saturation 81.2 H, VBG Base Excess -17.0 L, VBG Lactic Acid 4.8 H 11/15/24 23:00: Sodium 135 L, Potassium 5.2 H, Chloride 110 H, Carbon Dioxide 9 L*, Anion Gap 21.2 H, BUN 64 H, Creatinine 2.00 H, Estimated Creat Clear 42, Estimated GFR 25 L, Est GFR ( Amer) 31 L, Glucose 228 H, Calcium 8.6, Total Bilirubin 0.9, AST 38 H, ALT 119 H, Alkaline Phosphatase 251 H, Troponin I < 0.01, Total Protein 5.9 L, Albumin 3.0 L D, Globulin 2.9, Albumin/Globulin Ratio 1.0 L 11/16/24 01:10: POC Glucose 196 H 11/16/24 03:50: WBC 13.4 H, RBC 2.34 L, Hgb 6.4 L*, Hct 22.3 L, MCV 95.3, MCH 27.4, MCHC 28.7 L, RDW 25.2 H*, Plt Count 278, MPV 11.5 H, Neut % (Auto) 90.3 H, Lymph % (Auto) 4.0 L, Banks % (Auto) 5.2, Eos % (Auto) 0.0 L, Baso % (Auto) 0.1, Neut # (Auto) 12.1 H, Lymph # (Auto) 0.5 L, Banks # (Auto) 0.7, Eos # (Auto) 0.0, Baso # (Auto) 0.0, VBG pH 7.23 L, VBG pCO2 34.8 L, VBG pO2 137.4 H, VBG HCO3 14.1 L, VBG Total CO2 15.2 L, VBG O2 Saturation 98.8 H, VBG Base Excess -13.5 L, VBG Lactic Acid 3.9 H, Sodium 138, Potassium 5.2 H, Chloride 109 H, Carbon Dioxide 10 L D, Anion Gap 24.2 H, BUN 64 H, Creatinine 2.00 H, Estimated Creat Clear 31, Estimated GFR 25 L, Est GFR ( Amer) 31 L, Glucose 151 H D, Calcium 8.7, Phosphorus 5.0 H, Magnesium 2.2, Total Bilirubin 0.9, AST 41 H, ALT 129 H, Alkaline Phosphatase 271 H, Troponin I < 0.01, Total Protein 5.9 L, Albumin 3.0 L, Globulin 2.9, Albumin/Globulin Ratio 1.0 L, TSH 6.26 H 11/16/24 04:41: Blood Type O Positive, Antibody Screen Positive 11/16/24 05:51: POC Glucose 157 H 11/16/24 12:56: POC Glucose 57 L Assessment and Plan *Assessment and plan (1) Anemia: Status: Acute Category: Medical Code(s): D64.9 - Anemia, unspecified (2) Nausea & vomiting: Status: Inactive Qualifiers: Vomiting Intractability: non-intractable Vomiting type: unspecified Qualified Code(s): R11.2 - Nausea with vomiting, unspecified Category: Medical Code(s): R11.2 - Nausea with vomiting, unspecified (3) Lesion of pancreas: Status: Acute Category: Medical Code(s): K86.9 - Disease of pancreas, unspecified (4) Fatty liver: Status: Acute Category: Medical Code(s): K76.0 - Fatty (change of) liver, not elsewhere classified (5) Cirrhosis of liver: Status: Acute Category: Medical Code(s): K74.60 - Unspecified cirrhosis of liver (6) Elevated liver enzymes: Status: Acute Category: Medical Code(s): R74.8 - Abnormal levels of other serum enzymes (7) Ascites: Status: Acute Category: Medical Code(s): R18.8 - Other ascites (8) Anasarca: Status: Acute Category: Medical Code(s): R60.1 - Generalized edema Plan 1. Anemia Acute on chronic. Status post panendoscopy with Dr. Lock in March for similar issue. Did have cecal angiodysplasia status post ablation but also chronic atrophic gastritis so likely poor iron absorption. No melena or hematochezia but may consider Hemoccult testing. Patient would likely again benefit from IV iron infusion as well. 2. Pancreatic lesion 4.6 mm calcified density at the pancreatic head consistent with prior finding of 2.6 x 1.7 cm hypodense lesion on CT in 2020. She does have what appears to be peripancreatic edema but has small volume ascites and quite a lot of anasarca. Lipase low at 248 and she is completely asymptomatic. Nausea and vomiting is resolved no abdominal pain. Unlikely that this pancreatitis but may be sequelae from cirrhosis. She does have some mild elevations of liver enzymes but has this intermittently over multiple lab draws will have elevated AST and alk phos. See below recommendations. I would do an MRCP MRI of the pancreas to get more information. Will check CA 19?9. 3. Elevated liver enzymes/cirrhosis/fatty liver Bilirubin at 1.2, AST of 40, ALT 137 and alk phos of 280. Patient intermittently has elevations in her alk phos and occasionally AST as well. Nodular liver concerning for cirrhosis. Patient denies any history of the same. Denies any family history of liver disease that she knows of. Does have both anasarca and some mild ascites noted on imaging. Patient complains of bilateral lower extremity edema and has some 1+ pitting edema in bilateral feet. Cardiac versus liver given her history. Slight increase of liver enzymes likely reactive. Less concerning for choledocholithiasis given the lower bilirubin and patient is completely asymptomatic today. I would recommend outpatient follow-up for fatty liver disease and cirrhosis with elevated liver enzymes.
--- NOTE | 2024-11-16 14:03 | HMH.OTEV ---
OT Evaluation Rehab OT IP Evaluation Start: 11/16/24 01:54 Freq: ONCE Status: Active Protocol: Document 11/16/24 14:00 GLENN (Rec: 11/16/24 14:03 GLENN [id number]) Rehab OT IP Assessment Subjective History Ms. Cronin is a 64-year-old female with extensive history of CAD, CHF, CABG, urostomy, bioprosthetic mitral valve, CKD 3, insulin-dependent diabetes. She presented to the ER via EMS from [facility] for intractable nausea and vomiting that began today. Denies fever or diarrhea. Glucose on arrival was 238. Initial workup found VBG with pH of 7 .14, pCO2 of 36. Lactate of 4.8. Chemistry with potassium 6.3, sodium 135. Anion gap 22. Creatinine 2 .0, BUN 66. Liver enzymes abnormal with AST of 40, ALT 137, alk phos 280. BNP 3300. Lipase 248. CT of the abdomen shows concern for calcified possible stone near pancreatic head. Treated for hyperkalemia with some improvement to 5.2. Bicarb remains low at 9 with anion gap of 21. Medicine consulted for admission and further management of electrolyte disturbances and metabolic acidosis. On evaluation, concern for DKA component given patient is no longer wearing a pump. States she has had her basal insulin but does not recall if she has had short acting insulin today. Her constellation of symptoms would fit with DKA, versus gastroenteritis, versus pancreatitis. Will administer 1 amp of bicarb and initiated on sliding scale insulin every 4 hours with fingersticks every 4 hours scheduled. Interactive on exam, answering questions slowly but appropriately. Stable on room air. Afebrile. Tolerating p.o. liquids on evaluation. Resident of [facility]. Propels independently within facility. Assistance of 1 for transfers and ADLs. Subjective I can sit up. Instructed Patient on completing bed mobility from supine->sit @ EOB->stand requiring CGA. No LOB noted. Patient was able to side step (4 steps) with CGA. Assisted patient back to EOB and upright in bed for meals per request. Patient appears to be at baseline. Objective Patient Orientation Person,Name,Age,Birthday Right Upper WFL Extremity Gross ROM Left Upper Extremity WFL Gross ROM Bed Mobility bed mobility - supine/sit Assist Level Independent Transfer Training Sit/Stand/Step Transfer Assist Level Contact Guard/Hand Hold Rehab OT IP prob,goals,plan Problems Date of Evaluation: 11/16/24 Rehab Potential Rehab Potential Innapropriate for Skilled Therapy Discharge Plan OT Discharge Plan Resident of [facility]. Patient appears to be at baseline with ADLs and fx'l mobility tasks. Recommend Patient to return back to [facility] after medical d/c. Eval Complexity Eval Charge Codes 35827 - Low Complexity PHYSICIAN CERTIFICATION: I certify the specified therapy services for Laxmi Cronin are required, authorized, and reviewed every 30 days.
--- NOTE | 2024-11-16 14:50 | EXP.CARD.CON ---
History of Present Illness History of Present Illness Consult date: 11/16/24 Requesting physician: Demetri Santoyo Consult reason: congestive heart failure Chief complaint: CHF, anemia, CKD Additional Medical History:: 1. History of A-fib A. S/p maze and MILLY clip 2022 B. No OAC due to MILLY clip C. Amiodarone started 11/2023 due to A-fib with RVR resulting in ICD discharge 2. HFrEF A. History of EF 45-50% improved to 55% in 2023 transiently and then back to 40-45% with new severe hypokinesis of apical LV wall. B. LHC with SHANNAN to vein graft 11/2023 C. LHC with SHANNAN to vein graft, 03/2024, EF 35-40% 3. CAD A. CABG in 2022 B. Stents to vein grafts in 2023 and 2024 4. 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 Chronic penicillin therapy B. BROCK/cardioversion, 04/2024, EF 40%, mild RV dilation with mild reduction in RV function, biatrial dilation. Bioprosthetic MVR is well-seated with mildly thickened area at the base consistent with pannus formation but without compromising the integrity of the mitral valve. Moderate TR noted with RVSP 34 mmHg. Patient successfully cardioverted to sinus rhythm. 5. History of tricuspid ring repair 6. History of pulmonary embolus 03/2024 A. On Eliquis therapy 7. 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 Cronin is a 64-year-old female with extensive history of CAD, CHF, CABG, urostomy, bioprosthetic mitral valve, CKD 3, insulin-dependent diabetes. She presented to the ER via EMS from [facility] for intractable nausea and vomiting that began today. Denies fever or diarrhea. Glucose on arrival was 238. Initial workup found VBG with pH of 7.14, pCO2 of 36. Lactate of 4.8. Chemistry with potassium 6.3, sodium 135. Anion gap 22. Creatinine 2.0, BUN 66. Liver enzymes abnormal with AST of 40, ALT 137, alk phos 280. BNP 3300. Lipase 248. CT of the abdomen shows concern for calcified possible stone near pancreatic head. Treated for hyperkalemia with some improvement to 5.2. Bicarb remains low at 9 with anion gap of 21. Medicine consulted for admission and further management of electrolyte disturbances and metabolic acidosis. On evaluation, concern for DKA component given patient is no longer wearing a pump. States she has had her basal insulin but does not recall if she has had short acting insulin today. Her constellation of symptoms would fit with DKA, versus gastroenteritis, versus pancreatitis. Will administer 1 amp of bicarb and initiated on sliding scale insulin every 4 hours with fingersticks every 4 hours scheduled. Interactive on exam, answering questions slowly but appropriately. Stable on room air. Afebrile. Tolerating p.o. liquids on evaluation. The above per Dr. Hernandez Cardiology consulted for CHF and to address holding Eliquis and Plavix. [facility] Disclaimer: The information contained in this section may have been updated after the patient was seen, as this information can be updated by other users. Medical History CKD (chronic kidney disease) STACY (acute kidney injury) Fracture of pubic ramus Anemia Generalized weakness Diabetes mellitus Pulmonary embolism Neuropathic pain Failure to thrive Shock Impaired ambulation Self-care deficit Marijuana smoker Pulmonary embolism on left Smoking greater than 30 pack years Pulmonary emphysema Chronic kidney disease Atrial fibrillation Acute respiratory failure with hypoxia Pleural effusion on right Chronic endocarditis Acute on chronic HFrEF (heart failure with reduced ejection fraction) Coronary artery disease Right kidney mass Pancreatic mass Dental abscess Pain, dental Hematuria Nausea vomiting and diarrhea Hypovolemia Infection due to extended-spectrum [id number] Klebsiella pneumoniae Yeast infection of the vagina STACY (acute kidney injury) Cellulitis Candidiasis Presence of urostomy Vitamin D deficiency Bacterial endocarditis Obesity (BMI 30.0-34.9) Gastroenteritis due to norovirus Bacteremia Pacemaker Bladder cancer Diarrhea UTI (urinary tract infection) Dehydration Abscess of skin or subcutaneous tissue Valvular heart disease Palpitations Myocardial infarction HTN (hypertension), benign Depression CHF (congestive heart failure) Anxiety PAD (peripheral artery disease) Abnormal ankle brachial index (GOMEZ) HHD (hypertensive heart disease) HLD (hyperlipidemia) Carotid bruit Carotid artery stenosis Surgical History S/P ileal conduit (~12/2020) H/O tricuspid valve repair History of insertion of stent into coronary artery bypass graft History of urostomy Hx of cholecystectomy H/O: hysterectomy Hx of tonsillectomy History of mitral valve replacement S/P left atrial appendage ligation AICD (automatic cardioverter/defibrillator) present History of coronary artery bypass graft Family History Diabetes Heart attack Cancer Social History Smoking Status: Current every day smoker tobacco type: cigarettes packs per day: 1 second hand exposure: Yes alcohol intake: never substance use type: marijuana current occupational status: disabled Travel in the last 8 weeks?: None household members: family housing: house number of children: 2 current occupational exposures/hazards: No caffeine: Yes Have you lived/traveled outside [place] in past 30 days?: No Contact w/someone who lives/traveled outside US past 30 days?: No Exposure to someone with infectious disease in past 14 days?: No Do you have a fever (greater than 100.4 F or 38 C)?: No Have you tested positive for COVID-19?: No Exposed to someone with COVID-19 in past 14 days?: No Do you have a sore throat?: No Do you have a cough?: No Do you have any weakness?: No Do you have any diarrhea?: No Are you experiencing any unusual bleeding?: No Do you have any muscle aches/pain?: No Do you have any abdominal pain?: No Are you experiencing loss of taste or smell?: No Review of Systems Review of Systems Review of systems:: pertinent systems reviewed and negative unless documented below *Cardiovascular Cardiovascular: Denies chest pain, Reports dyspnea and Reports dyspnea on exertion *Respiratory Respiratory: Reports dyspnea and Reports dyspnea on exertion *Gastrointestinal Gastrointestinal: Reports vomiting Exam Data for Last 24 hours Vital signs and Labs for Last 24 Hours: Temp Pulse Resp BP Pulse Ox O2 Del Method 97.5 F L 101 H 18 101/57 L 100 Room Air 11/16/24 12:00 11/16/24 12:00 11/16/24 12:00 11/16/24 12:00 11/16/24 12:00 11/16/24 13:00 Laboratory Results - last 24 hr 11/15/24 20:46: WBC 12.1 H, RBC 2.58 L, Hgb 7.1 L, Hct 24.8 L, MCV 96.1, MCH 27.5, MCHC 28.6 L, RDW 25.2 H*, Plt Count 274, MPV 12.0 H, Neut % (Auto) 93.3 H, Lymph % (Auto) 2.7 L, [place] % (Auto) 3.3, Eos % (Auto) 0.1, Baso % (Auto) 0.2, Neut # (Auto) 11.3 H, Lymph # (Auto) 0.3 L, [place] # (Auto) 0.4, Eos # (Auto) 0.0, Baso # (Auto) 0.0, Total Counted 100, Neutrophils % (Manual) 97 H, Lymphocytes % (Manual) 2 L, Monocytes % (Manual) 1 L, Platelet Estimate Normal, RBC Morphology Normal, Sodium 135 L, Potassium 6.3 H*, Chloride 109 H, Carbon Dioxide 10 L, Anion Gap 22.3 H, BUN 66 H, Creatinine 2.00 H, Estimated Creat Clear 42, Estimated GFR 25 L, Est GFR ( Amer) 31 L, Glucose 206 H, Calcium 8.7, Magnesium 2.2, Total Bilirubin 1.2, AST 40 H, ALT 137 H, Alkaline Phosphatase 280 H, Troponin I < 0.01, Total Protein 6.7, Albumin 3.6, Globulin 3.1, Albumin/Globulin Ratio 1.2, Lipase 248, SARS-CoV-2 (PCR) Not detected, Influenza A Untype (PCR) Not detected, Influenza Type B (PCR) Not detected 11/15/24 20:50: Hemoglobin A1c 5.5, NT-Pro-B Natriuret Pep 64046 H, TSH 6.53 H 11/15/24 21:42: VBG pH 7.14 L, VBG pCO2 36.0, VBG pO2 60.8 H, VBG HCO3 12.0 L, VBG Total CO2 13.1 L, VBG O2 Saturation 81.2 H, VBG Base Excess -17.0 L, VBG Lactic Acid 4.8 H 11/15/24 23:00: Sodium 135 L, Potassium 5.2 H, Chloride 110 H, Carbon Dioxide 9 L*, Anion Gap 21.2 H, BUN 64 H, Creatinine 2.00 H, Estimated Creat Clear 42, Estimated GFR 25 L, Est GFR ( Amer) 31 L, Glucose 228 H, Calcium 8.6, Total Bilirubin 0.9, AST 38 H, ALT 119 H, Alkaline Phosphatase 251 H, Troponin I < 0.01, Total Protein 5.9 L, Albumin 3.0 L D, Globulin 2.9, Albumin/Globulin Ratio 1.0 L 11/16/24 01:10: POC Glucose 196 H 11/16/24 03:50: WBC 13.4 H, RBC 2.34 L, Hgb 6.4 L*, Hct 22.3 L, MCV 95.3, MCH 27.4, MCHC 28.7 L, RDW 25.2 H*, Plt Count 278, MPV 11.5 H, Neut % (Auto) 90.3 H, Lymph % (Auto) 4.0 L, [place] % (Auto) 5.2, Eos % (Auto) 0.0 L, Baso % (Auto) 0.1, Neut # (Auto) 12.1 H, Lymph # (Auto) 0.5 L, [place] # (Auto) 0.7, Eos # (Auto) 0.0, Baso # (Auto) 0.0, VBG pH 7.23 L, VBG pCO2 34.8 L, VBG pO2 137.4 H, VBG HCO3 14.1 L, VBG Total CO2 15.2 L, VBG O2 Saturation 98.8 H, VBG Base Excess -13.5 L, VBG Lactic Acid 3.9 H, Sodium 138, Potassium 5.2 H, Chloride 109 H, Carbon Dioxide 10 L D, Anion Gap 24.2 H, BUN 64 H, Creatinine 2.00 H, Estimated Creat Clear 31, Estimated GFR 25 L, Est GFR ( Amer) 31 L, Glucose 151 H D, Calcium 8.7, Phosphorus 5.0 H, Magnesium 2.2, Total Bilirubin 0.9, AST 41 H, ALT 129 H, Alkaline Phosphatase 271 H, Troponin I < 0.01, Total Protein 5.9 L, Albumin 3.0 L, Globulin 2.9, Albumin/Globulin Ratio 1.0 L, TSH 6.26 H 11/16/24 04:41: Blood Type O Positive, Antibody Screen Positive 11/16/24 05:51: POC Glucose 157 H 11/16/24 12:56: POC Glucose 57 L I & O for Last 24 hours: Intake & Output 11/14/24 11/15/24 11/16/24 10/07/25 11:59 11:59 11:59 11:59 Intake Total 1150 / 1150 Output Total 1130 / 1130 Balance Weight 147 lb 9.592 oz Constitutional Constitutional: no acute distress *Routine Respiratory Exam Respiratory: Present decreased breath sounds and diminished air movement; Absent rales or rhonchi *Routine Cardiovascular Exam Cardiovascular: Present irregularly irregular *Routine Extremities Exam Extremities: Absent edema *Routine Neurological Exam Neurological: Present alert, oriented X3 and CN II-XII intact Meds Home Medications and Allergies Home Medications ?Medication ?Instructions ?Recorded ?Confirmed ?Type blood sugar diagnostic (True #10 ea 04/22/24 11/11/24 History Metrix Glucose Test Strip) blood-glucose sensor ([employer] G7 #1 ea 04/22/24 11/11/24 History Sensor device) insulin syringe-needle U-100 1 mL #10 ea 04/22/24 11/11/24 History 31 gauge x 5/16 insulin lispro 100 unit/mL 0 unit SQ DIRECTED 07/02/24 11/16/24 History subcutaneous solution albuterol sulfate 90 mcg/actuation 2 inh inhalation QID PRN shortness 07/09/24 11/16/24 Rx aerosol inhaler of breath or wheezing 90 days #8.5 grams insulin glargine 100 unit/mL (3 10 unit (0.1 mL) SQ HS #3 mL 10/06/24 11/16/24 Rx mL) subcutaneous pen (Lantus Solostar U-100 Insulin) pantoprazole 40 mg tablet,delayed 40 mg PO HS 10/07/24 11/16/24 History release (Protonix) amiodarone 200 mg tablet 400 mg PO DAILY 10/08/24 11/16/24 History apixaban 5 mg tablet (Eliquis) 5 mg PO BID 10/08/24 11/16/24 History atorvastatin 40 mg tablet (Lipitor) 40 mg PO HS 10/08/24 11/16/24 History citalopram 20 mg tablet 20 mg PO HS 10/08/24 11/16/24 History clopidogrel 75 mg tablet 75 mg PO DAILY 10/08/24 11/16/24 History levothyroxine 25 mcg capsule 25 mcg PO DAILY 10/08/24 11/16/24 History ondansetron HCl 4 mg tablet 4 mg PO Q6HP PRN Nausea And 10/08/24 11/16/24 History Vomiting ropinirole 1 mg tablet 1 mg PO HS 10/08/24 11/16/24 History alprazolam 0.25 mg tablet 0.25 mg PO BID 11/16/24 11/16/24 History amino acids-protein hydrolysate 17 1 ea PO DAILY 11/16/24 11/16/24 History gram-100 kcal/30 mL liquid packet (Pro-Stat AWC) cyanocobalamin (vitamin B-12) 100 100 mcg PO DAILY 11/16/24 11/16/24 History mcg tablet folic acid 1 mg tablet 1 mg PO DAILY 11/16/24 11/16/24 History hydrocodone 5 mg-acetaminophen 325 1 tab PO Q6HP PRN Moderate Pain 11/16/24 11/16/24 History mg tablet (Scale Score 5-6) midodrine 10 mg tablet 10 mg PO BID 11/16/24 11/16/24 History mirtazapine 15 mg tablet 15 mg PO HS 11/16/24 11/16/24 History penicillin V potassium 250 mg 250 mg PO BID 11/16/24 11/16/24 History tablet New Prescriptions to Start Prescriptions: Allergies Allergy/AdvReac Type Severity Reaction Status Date / Time No Known Allergies Allergy Verified 11/11/24 08:38 Assessment and Plan *Assessment and plan (1) High anion gap metabolic acidosis: Status: Acute Category: Medical Code(s): E87.29 - Other acidosis (2) Diabetes mellitus: Status: Acute Qualifiers: Diabetes mellitus complication status: with unspecified complications Diabetes mellitus group home insulin use: with group home use Diabetes mellitus type: type 2 Qualified Code(s): E11.8 - Type 2 diabetes mellitus with unspecified complications; Z79.4 - 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 of insulin Category: Medical Code(s): E11.9 - Type 2 diabetes mellitus without complications (3) Hyperkalemia: Status: Acute Category: Medical Code(s): E87.5 - Hyperkalemia (4) Acute on chronic HFrEF (heart failure with reduced ejection fraction): Status: Acute Category: Medical Code(s): I50.23 - Acute on chronic systolic (congestive) heart failure (5) Generalized weakness: Status: Acute Category: Medical Code(s): R53.1 - Weakness (6) CKD (chronic kidney disease): Status: Acute Qualifiers: Chronic kidney disease stage: stage 3 (moderate) Chronic kidney disease stage 3 subtype: stage 3a (GFR 45-59) Qualified Code(s): N18.31 - Chronic kidney disease, stage 3a Category: Medical Code(s): N18.9 - Chronic kidney disease, unspecified (7) Atrial fibrillation: Status: Acute Qualifiers: Atrial fibrillation type: unspecified chronic Qualified Code(s): I48.20 - Chronic atrial fibrillation, unspecified Category: Medical Code(s): I48.91 - Unspecified atrial fibrillation (8) Status post mitral valve replacement: Status: Acute Category: Surgical Code(s): Z95.2 - Presence of prosthetic heart valve (9) AICD (automatic cardioverter/defibrillator) present: Status: Chronic Category: Surgical Code(s): Z95.810 - Presence of automatic (implantable) cardiac defibrillator (10) Coronary artery disease: Status: Acute Qualifiers: Associated angina: with other forms of angina Coronary Disease-Associated Artery/Lesion type: [place] artery [place] vs. transplanted heart: [place] heart Qualified Code(s): I25.118 - Atherosclerotic heart disease of [place] coronary artery with other forms of angina pectoris Category: Medical Code(s): I25.10 - Atherosclerotic heart disease of [place] coronary artery without angina pectoris Plan 1. DM/high anion gap metabolic acidosis/Hyperkalemia -per Hospitalist 2. Acute on chronic HFrEF with AICD in situ -continue IV Bumex -stop spironolactone and hold entresto -BNP 33,100 -Echo this admission shows reduced EF down to 20-30% with moderate TR 3. CKD with chronic anemia -History of AVM ablation earlier this year as suspected source of chronic blood loss 4. A. fib with history of MILLY clip and MAZE procedure -No need for chronic anticoagulation -On Amio for rate control due to history of ICD firing 5. CAD with CABG and subsequent stenting to vein grafts in 2023 and 2024 -OK to hold Plavix -troponins normal 6. History of pulmonary emboli, 03/2024 -Started on Eliquis during that admission with plans to discontinue after 6 months 7. History of mitral valve replacement and tricuspid ring repair related to infective endocarditis -Chronic penicillin therapy Diabetes management per hospitalist. Patient no longer needs Eliquis from a cardiac standpoint. Hold clopidogrel but consider restarting at discharge. Stop entresto due to hyperkalemia. Consider switching to ARB in future. Recommend transfusing blood to keep hemoglobin greater then 8 due to history of A-fib with RVR and CAD/CABG/vein graft stenting
[2024-11-16 14:51] LABS: POC Glucose,Bedside 102 gm/dL (70-110)
--- NOTE | 2024-11-16 16:02 | PC.NURSE ---
Per MD Santoyo: Transfuse 1 unit of blood. Post 1hr H&H.
--- NOTE | 2024-11-16 16:28 | PC.NURSE ---
Awaiting blood from [facility]. Clarified with lab that pt is positive for antibodies in blood. MD Santoyo notified. FSBS 131 this evening. Pt is resting in bed at this time. C/O restless legs. Call light within reach.
[2024-11-16 16:37] LABS: POC Glucose,Bedside 131 gm/dL (70-110)
[2024-11-16 16:52] LABS: Free T4 (Free Thyroxine) 2.44 ng/dl (0.78-2.19)
[2024-11-16 18:21] LABS: Free T4 (Free Thyroxine) 2.43 ng/dl (0.78-2.19)
--- NOTE | 2024-11-16 20:00 | PC.NURSE ---
This RN contacted [facility] for an ETA on blood and was told we don't know when it will be ready
[2024-11-16 20:36] LABS: POC Glucose,Bedside 119 gm/dL (70-110)
--- NOTE | 2024-11-16 22:09 | EXP.PN ---
Subjective *Date: 11/17/24 *Time: 15:41 Interval history: Profound HFrEF exacerbation. Started IV Bumex 2 mg twice daily. Hold off on spironolactone due to hyperkalemia. Continue ceftriaxone, started doxycycline for left-sided pneumonia. Patient has molecular antibodies, pending transfusion for anemia hemoglobin 6.4. Follow-up H&H 1 hour posttransfusion. Patient did have bright red blood per rectum on admission. Will follow-up with [facility]. N.p.o. at midnight for possible scope in the morning. Unable to do the MRCP that GI ordered due to pacemaker. Levothyroxine 25 mcg discontinued due to elevated free T4. Exam Data for Last 24 hours Vital signs and Labs for Last 24 Hours: Temp Pulse Resp BP Pulse Ox O2 Del Method 98.0 F 108 H 16 101/60 L 99 Room Air 11/16/24 20:00 11/16/24 20:00 11/16/24 20:00 11/16/24 20:00 11/16/24 20:00 11/16/24 21:02 Laboratory Results - last 24 hr 11/15/24 20:50: Hemoglobin A1c 5.5, NT-Pro-B Natriuret Pep 91933 H, TSH 6.53 H 11/15/24 23:00: Sodium 135 L, Potassium 5.2 H, Chloride 110 H, Carbon Dioxide 9 L*, Anion Gap 21.2 H, BUN 64 H, Creatinine 2.00 H, Estimated Creat Clear 42, Estimated GFR 25 L, Est GFR ( Amer) 31 L, Glucose 228 H, Calcium 8.6, Total Bilirubin 0.9, AST 38 H, ALT 119 H, Alkaline Phosphatase 251 H, Troponin I < 0.01, Total Protein 5.9 L, Albumin 3.0 L D, Globulin 2.9, Albumin/Globulin Ratio 1.0 L 11/16/24 01:10: POC Glucose 196 H 11/16/24 03:50: WBC 13.4 H, RBC 2.34 L, Hgb 6.4 L*, Hct 22.3 L, MCV 95.3, MCH 27.4, MCHC 28.7 L, RDW 25.2 H*, Plt Count 278, MPV 11.5 H, Neut % (Auto) 90.3 H, Lymph % (Auto) 4.0 L, Will % (Auto) 5.2, Eos % (Auto) 0.0 L, Baso % (Auto) 0.1, Neut # (Auto) 12.1 H, Lymph # (Auto) 0.5 L, Will # (Auto) 0.7, Eos # (Auto) 0.0, Baso # (Auto) 0.0, VBG pH 7.23 L, VBG pCO2 34.8 L, VBG pO2 137.4 H, VBG HCO3 14.1 L, VBG Total CO2 15.2 L, VBG O2 Saturation 98.8 H, VBG Base Excess -13.5 L, VBG Lactic Acid 3.9 H, Sodium 138, Potassium 5.2 H, Chloride 109 H, Carbon Dioxide 10 L D, Anion Gap 24.2 H, BUN 64 H, Creatinine 2.00 H, Estimated Creat Clear 31, Estimated GFR 25 L, Est GFR ( Amer) 31 L, Glucose 151 H D, Calcium 8.7, Phosphorus 5.0 H, Magnesium 2.2, Total Bilirubin 0.9, AST 41 H, ALT 129 H, Alkaline Phosphatase 271 H, Troponin I < 0.01, Total Protein 5.9 L, Albumin 3.0 L, Globulin 2.9, Albumin/Globulin Ratio 1.0 L, TSH 6.26 H, Free T4 2.44 H 11/16/24 03:50: Free T4 2.43 H 11/16/24 04:41: Blood Type O Positive, Antibody Screen Positive 11/16/24 05:51: POC Glucose 157 H 11/16/24 12:56: POC Glucose 57 L 11/16/24 14:44: POC Glucose 102 11/16/24 16:20: POC Glucose 131 H 11/16/24 20:20: POC Glucose 119 H I & O for Last 24 hours: Intake & Output 11/13/24 11/14/24 11/15/24 11/16/24 23:59 23:59 23:59 23:59 Intake Total 1099 50 / 50 Output Total 1879 Balance 1099 -183 / -1830 Weight 90.718 kg 66.95 kg Constitutional Constitutional: no acute distress and chronically ill appearing *Routine HEENT Exam Head: Present normocephalic Eye: Present EOMI and PERRL ENT: Present mucous membranes moist *Routine Neck Exam Neck: Present supple; Absent lymphadenopathy *Routine Respiratory Exam Respiratory: Present CTA bilaterally *Routine Cardiovascular Exam Cardiovascular: Present RRR *Routine Abdominal Exam Abdominal: Present soft and normoactive bowel sounds; Absent tenderness *Routine Extremities Exam Extremities: Present edema; Absent cyanosis or clubbing Comments: Diffuse 2 to 3+ pitting edema *Routine Skin Exam Skin: Present warm; Absent rash *Routine Neurological Exam Neurological: Present alert and oriented X3 Assessment and Plan *Assessment and plan (1) Hyperkalemia: Status: Acute Category: Medical Code(s): E87.5 - Hyperkalemia (2) High anion gap metabolic acidosis: Status: Acute Category: Medical Code(s): E87.29 - Other acidosis (3) Diabetic ketoacidosis: Status: Acute Category: Medical Code(s): E11.10 - Type 2 diabetes mellitus with ketoacidosis without coma (4) Acute on chronic HFrEF (heart failure with reduced ejection fraction): Status: Acute Category: Medical Code(s): I50.23 - Acute on chronic systolic (congestive) heart failure (5) Status post mitral valve replacement: Status: Acute Category: Surgical Code(s): Z95.2 - Presence of prosthetic heart valve (6) Chronic endocarditis: Status: Acute Qualifiers: Endocarditis type: infective Infective endocarditis organism: bacterial Qualified Code(s): I33.0 - Acute and subacute infective endocarditis Category: Medical Code(s): I38 - Endocarditis, valve unspecified (7) Anemia: Status: Acute Qualifiers: Anemia type: unspecified type Qualified Code(s): D64.9 - Anemia, unspecified Category: Medical Code(s): D64.9 - Anemia, unspecified (8) T2DM (type 2 diabetes mellitus): Status: Deleted Qualifiers: Diabetes mellitus senior care insulin use: with senior care use Diabetes mellitus complication status: with kidney complications Diabetes mellitus complication detail: with chronic kidney disease Chronic kidney disease stage: stage 3 (moderate) Chronic kidney disease stage 3 subtype: stage 3a (GFR 45-59) Qualified Code(s): E11.22 - Type 2 diabetes mellitus with diabetic chronic kidney disease; N18.31 - Chronic kidney disease, stage 3a; Z79.4 - senior living (current) use of insulin Category: Medical Code(s): E11.9 - Type 2 diabetes mellitus without complications (9) CAD (coronary artery disease): Status: Deleted Qualifiers: Coronary Disease-Associated Artery/Lesion type: [place] artery [place] vs. transplanted heart: [place] heart Associated angina: with other forms of angina Qualified Code(s): I25.118 - Atherosclerotic heart disease of [place] coronary artery with other forms of angina pectoris Category: Medical Code(s): I25.10 - Atherosclerotic heart disease of [place] coronary artery without angina pectoris (10) Paroxysmal atrial fibrillation: Status: Acute Category: Medical Code(s): I48.0 - Paroxysmal atrial fibrillation (11) CKD (chronic kidney disease): Status: Acute Qualifiers: Chronic kidney disease stage: stage 3 (moderate) Chronic kidney disease stage 3 subtype: stage 3a (GFR 45-59) Qualified Code(s): N18.31 - Chronic kidney disease, stage 3a Category: Medical Code(s): N18.9 - Chronic kidney disease, unspecified (12) Hypothyroidism (acquired): Status: Chronic Category: Medical Code(s): E03.9 - Hypothyroidism, unspecified Plan Laxmi Cronin is a 64-year-old female with a medical history significant for CAD s/p 2 stents 12/13/2023, HFrEF 40%, CABG 2016, AICD, A-fib s/p maze and MILLY clip, bioprosthetic mitral valve replacement with history of chronic endocarditis on penicillin daily, CKD 3b, insulin-dependent diabetes. She presented with nausea and vomiting x 2 days. Admitted for HFrEF exacerbation. #HFrEF exacerbation #Anasarca #Pulmonary edema #Bilateral pleural effusions #High anion gap metabolic acidosis #RV failure ? Presented with nausea/vomiting, high agap acidosis, initial BNP 91036, with diffuse anasarca. Initial lactic acid 3.9, since resolved with diuresis. ? ECHO on 11/16/2024 revealed worsened LVEF 25%, moderate RV dilatation and reduction in RV function. ? Started Bumex 2 mg twice daily, will hold off on spironolactone due to history of hyperkalemia. ? Cardiology consulted, advised continue diuresis. Suspect worsened LVEF due to anemia and history of A-fib. Troponins normal, low suspicion for ACS. ? Follow-up renal function, urine output, electrolytes. ? Follow-up morning CMP, magnesium. On room air. #Acute on chronic anemia ? Hemoglobin down to 6.4 this morning, 7.1 yesterday. MCV normal. ? Patient has a history of cecal angiodysplasia s/p ablation in March 2024. Patient did have bloody bowel movement today. Vital signs stable. ? Started IV Protonix 40 mg twice daily. ? Tested positive for molecular antibodies to blood. Pending transport of PRBC from [place]. Follow-up post transfusion H&H. ? GI consulted, pending further recommendations. #Left lower lobe community-acquired pneumonia ? Seen on CT chest on 11/15/2024. ? Continue ceftriaxone, started doxycycline 100 mg twice daily. ? Follow-up sputum cultures. #Pancreatic edema ? CT abdomen reveals peripancreatic edema, but this more likely represents sequela of anasarca rather than acute pancreatitis as lipase is normal and patient has no abdominal pain. #Gastroduodenitis ? Continue Protonix 40 mg nightly. #Suspected cirrhosis ? Seen on CT abdomen on admission. Follow-up PT/INR. ? Plan to refer to gastroenterology on discharge. #CKD stage IIIb ? Creatinine 2.0, GFR 31. #Paroxysmal A-fib ? Currently rate controlled. Continue home amiodarone, hold Eliquis due to GI bleed as above. #History of STEMI #CAD ? Last cath performed in March of this year with the following findings: Severe disease in the saphenous vein graft limb supplying the LAD; Successful stenting of the saphenous vein graft severe disease reduced to 0% with 1 drug-eluting stent - Hold Plavix 75 mg daily due to GI bleed as above. #History of hypothyroid ? Discontinue levothyroxine as free T4 elevated to 2.43. Repeat TFTs in 4 weeks. #CKD stage III ? Stable, BUN 64, creatinine 2.0. Continue to monitor with daily labs Full code DVT prophylaxis: SCDs
[2024-11-17] VITALS (29 sets, daily range): BP systolic 92–140; BP diastolic 56–93; PULSE 90–117; RESP 16–20; TEMP 36.3–36.9; O2SAT 95–100; BMI 27.3
[2024-11-17 05:27] LABS: POC Glucose,Bedside 89 gm/dL (70-110)
--- NOTE | 2024-11-17 05:42 | PC.NURSE ---
Pt is A&OX4 and has tolerated room air. She has received 1 unit of blood this shift and tolerated well. Urostomy has been draining well. No complaints at this time, call light within reach.
[2024-11-17 06:19] LABS: Hematocrit 22.8 % (37.0-47.0); Immature Granulocytes % 0.3 %; Mean Corpuscular HGB Conc 28.9 g/dL (31.8-35.4); Mean Corpuscular Hemoglobin 27.3 pg (27.0-31.2); Mean Corpuscular Volume 94.2 fl (81-99); Nucleated Red Blood Cells % 0 %; Platelet Count 214 K/mm3 (142-424); Red Blood Count 2.42 M/mm3 (4.20-5.40); Red Cell Distribution Width-SD 79.9 fL; White Blood Count 9.6 K/mm3 (4.8-10.8)
[2024-11-17 06:23] LABS: Hemoglobin 6.6 g/dL (12.2-16.2)
[2024-11-17 06:24] LABS: Albumin Level 2.9 g/dl (3.5-5.0); Chloride 108 mmol/L (98-107); Potassium 3.9 mmoL/L (3.5-5.1); Sodium 139 mmol/L (136-145)
[2024-11-17 06:27] LABS: Alanine Aminotransferase 95 U/L (12-78); Albumin/Globulin Ratio 0.9 (1.1-1.8); Alkaline Phosphatase 258 U/L (38-126); Anion Gap 16.9 mEq/L (5-15); Aspartate Amino Transferase 35 U/L (14-36); Bilirubin,Total 0.9 mg/dl (0.2-1.3); Blood Urea Nitrogen 62 mg/dl (7-17); Carbon Dioxide 18 mmol/L (22.0-30.0); Creatinine Clearance Estimated 29 mL/min (50-200); Creatinine,Serum 2.10 mg/dl (0.52-1.04); Estimated Glomerular Filt Rate 24 ml/min (>60); GFR (African American) 29 ML/MIN (>60); Globulin 3.1 g/dL (1.3-3.2); Glucose 77 mg/dl (74-100); Total Protein,Serum 6.0 g/dl (6.3-8.2)
[2024-11-17 06:28] LABS: Calcium 8.5 mg/dl (8.4-10.2); Magnesium 2.0 mg/dl (1.6-2.3)
[2024-11-17] MEDS: 0.9 % SODIUM CHLORIDE 250 ML 25 ML IV (07:08)
[2024-11-17] MEDS: CITALOPRAM 20MG TABLET 20 MG PO (09:18)
[2024-11-17] MEDS: AMIODARONE 200MG TABLET 400 MG PO (09:18)
[2024-11-17] MEDS: DOXYCYCLINE HYCL 100 MG TABLET PO ×2 (09:18→21:56)
[2024-11-17] MEDS: BUMETANIDE 1MG/4ML VIAL 2 MG IV ×2 (09:19→16:23)
[2024-11-17 09:30] LABS: POC Glucose,Bedside 75 gm/dL (70-110)
--- NOTE | 2024-11-17 10:36 | HMH.PTEV ---
Physical Therapy Evaluation Rehab PT IP Evaluation Start: 11/16/24 01:54 Freq: ONCE Status: Active Protocol: Document 11/17/24 10:32 LUIS ALBERTO (Rec: 11/17/24 10:36 LUIS ALBERTO [id number]) Subjective/History History History Per H&P: Ms. Cronin is a 64-year-old female with extensive history of CAD, CHF, CABG, urostomy, bioprosthetic mitral valve, CKD 3, insulin-dependent diabetes. She presented to the ER via EMS from [facility] for intractable nausea and vomiting that began today. Denies fever or diarrhea. Glucose on arrival was 238. Initial workup found VBG with pH of 7.14, pCO2 of 36. Lactate of 4.8. Chemistry with potassium 6.3, sodium 135. Anion gap 22. Creatinine 2.0, BUN 66. Liver enzymes abnormal with AST of 40, ALT 137, alk phos 280. BNP 3300. Lipase 248. CT of the abdomen shows concern for calcified possible stone near pancreatic head. Treated for hyperkalemia with some improvement to 5.2. Bicarb remains low at 9 with anion gap of 21. Medicine consulted for admission and further management of electrolyte disturbances and metabolic acidosis. On evaluation, concern for DKA component given patient is no longer wearing a pump. States she has had her basal insulin but does not recall if she has had short acting insulin today. Her constellation of symptoms would fit with DKA, versus gastroenteritis, versus pancreatitis. Will administer 1 amp of bicarb and initiated on sliding scale insulin every 4 hours with fingersticks every 4 hours scheduled. Interactive on exam, answering questions slowly but appropriately. Stable on room air. Afebrile. Tolerating p.o. liquids on evaluation. Subjective Subjective Pt reports she lives at [facility]. Pt reports normally she uses a w/c for all mobility. Pt able to propel manual w/c IND and transfer with SBA at baseline. New diagnosis of No cancer in past 12 months? [facility] How much help from another person do you currently need... Turning from your A little back to your side while in a flat bed without using bedrails? Moving from lying on A little back to sitting on the side of a flat bed without using bedrails? Moving to and from a A little bed to a chair ( including a wheelchair)? Standing up from a A little chair using your arms? (e.g., wheelchair, bedside chair) Walking in hospital A lot room? Climbing 3-5 steps A lot with a railing? Mobility Score 16 Mobility Level [facility] Mobility 5 Stand (1 or more minutes) Mobility Calculator Rehab PT IP Eval Objective Appearance Patient Behavior Appropriate,Cooperative Patient Orientation Situation Difficulty following none instructions Speech Pattern Clear Ambulation Patient Able to No Ambulate Balance Ability to Arise Able, uses arms to help Sitting Balance Steady, safe Standing Balance Steady, wide stance Dynamic Sitting Good Balance Ability Transfers Bed Transfer Ability Minimal x 1 (25% assist) Sit to Stand Bed Contact Guard/Hand Hold Transfer Ability Sit to Stand Chair Contact Guard/Hand Hold Transfer Ability Rehab PT IP prob,goals,plan Problems Date of Evaluation: 11/17/24 Rehab Potential Rehab Potential Innapropriate for Skilled Therapy Discharge Plan PT Discharge Plan Pt appears to be at her baseline with functional mobility and would not benefit from skilled acute care PT while at [facility]. Eval Complexity Eval Charge Codes 31563 - Moderate Complexity PHYSICIAN CERTIFICATION: I certify the specified therapy services for Laxmi Cronin are required, authorized, and reviewed every 30 days.
[2024-11-17 11:19] LABS: Hematocrit 29.2 % (37.0-47.0)
[2024-11-17 11:27] LABS: Hemoglobin 9.4 g/dL (12.2-16.2)
--- NOTE | 2024-11-17 11:29 | EXP.CARD.PN ---
Subjective Subjective Date: 11/17/24 Time: 11:29 Principal diagnosis: anemia, chf Interval history: 64-year-old white female lying in bed in no acute distress. She feels better after 2 units of blood. Exam Data for Last 24 hours Vital signs and Labs for Last 24 Hours: Temp Pulse Resp BP Pulse Ox O2 Del Method 97.7 F 107 H 20 129/80 99 Room Air 11/17/24 10:11/17/24 10:11/17/24 10:11/17/24 10:11/17/24 10:11/17/24 09:00 Laboratory Results - last 24 hr 11/16/24 03:50: Sodium 138, Carbon Dioxide 10 L D, Anion Gap 24.2 H, BUN 64 H, Creatinine 2.00 H, Estimated Creat Clear 31, Estimated GFR 25 L, Est GFR ( Amer) 31 L, Glucose 151 H D, Calcium 8.7, Phosphorus 5.0 H, Magnesium 2.2, Total Bilirubin 0.9, AST 41 H, ALT 129 H, Alkaline Phosphatase 271 H, Total Protein 5.9 L, Globulin 2.9, Albumin/Globulin Ratio 1.0 L, TSH 6.26 H, Free T4 2.44 H 11/16/24 03:50: Free T4 2.43 H 11/16/24 04:41: Blood Type O Positive, Antibody Screen Positive, Crossmatch (AHG) See Detail 11/16/24 12:56: POC Glucose 57 L 11/16/24 14:44: POC Glucose 102 11/16/24 16:20: POC Glucose 131 H 11/16/24 20:20: POC Glucose 119 H 11/17/24 05:20: POC Glucose 89 11/17/24 05:23: WBC 9.6 D, RBC 2.42 L, Hgb 6.6 L*, Hct 22.8 L, MCV 94.2, MCH 27.3, MCHC 28.9 L, RDW 23.5 H, Plt Count 214, MPV 11.4 H, Neut % (Auto) 84.8 H, Lymph % (Auto) 8.1 L, [place] % (Auto) 6.2, Eos % (Auto) 0.3, Baso % (Auto) 0.3, Neut # (Auto) 8.2 H, Lymph # (Auto) 0.8, [place] # (Auto) 0.6, Eos # (Auto) 0.0, Baso # (Auto) 0.0, Sodium 139, Potassium 3.9 D, Chloride 108 H, Carbon Dioxide 18 L, Anion Gap 16.9 H, BUN 62 H, Creatinine 2.10 H, Estimated Creat Clear 29, Estimated GFR 24 L, Est GFR ( Amer) 29 L, Glucose 77, Calcium 8.5, Magnesium 2.0, Total Bilirubin 0.9, AST 35, ALT 95 H D, Alkaline Phosphatase 258 H, Total Protein 6.0 L, Albumin 2.9 L, Globulin 3.1, Albumin/Globulin Ratio 0.9 L 11/17/24 09:23: POC Glucose 75 11/17/24 11:09: Hgb 9.4 L D, Hct 29.2 L I & O for Last 24 hours: Intake & Output 11/14/24 11/15/24 11/16/24 11/17/24 11:59 11:59 11:59 11:59 Intake Total 1150 / 1150 650 / 650 Output Total 1130 / 1130 2475 / 2475 Balance -1825 / -1825 Weight 147 lb 9.592 oz 144 lb 8 oz Constitutional Constitutional: no acute distress *Routine Respiratory Exam Respiratory: Present CTA bilaterally and diminished air movement *Routine Cardiovascular Exam Cardiovascular: Present irregularly irregular *Routine Extremities Exam Extremities: Present edema Progress Note: A&P Assessment and plan (1) High anion gap metabolic acidosis: Status: Acute (2) Diabetes mellitus: Status: Acute (3) Hyperkalemia: Status: Acute (4) Acute on chronic HFrEF (heart failure with reduced ejection fraction): Status: Acute (5) Generalized weakness: Status: Acute (6) CKD (chronic kidney disease): Status: Acute (7) Atrial fibrillation: Status: Acute (8) Status post mitral valve replacement: Status: Acute (9) AICD (automatic cardioverter/defibrillator) present: Status: Chronic (10) Coronary artery disease: Status: Acute Assessment and Plan Assessment and Plan for All Diagnoses:: 1. DM/high anion gap metabolic acidosis/Hyperkalemia -per Hospitalist 2. Acute on chronic HFrEF with AICD in situ -continue IV Bumex -stop spironolactone and hold entresto -BNP 33,100 -Echo this admission shows reduced EF down to 20-30% with moderate TR 3. CKD with chronic anemia -History of AVM ablation earlier this year as suspected source of chronic blood loss -Tranfused 2 units with Hgb 9.4 4. A. fib with history of MILLY clip and MAZE procedure -No need for chronic anticoagulation -On Amio for rate control due to history of ICD firing 5. CAD with CABG and subsequent stenting to vein grafts in 2023 and 2024 -OK to hold Plavix but restart at discharge -troponins normal 6. History of pulmonary emboli, 03/2024 -Started on Eliquis during that admission with plans to discontinue after 6 months 7. History of mitral valve replacement and tricuspid ring repair related to infective endocarditis -Chronic penicillin therapy Cardiac status stable clinically with no chest pain and normal troponins. Further reduction in EF may be combo of a. fib and worsening anemia on eliquis. Will hold off on further cardiac catheterization at this time due to needing blood transfusion this admission. Will consider repeat echo as an outpatient in the near future Home med recommendations: Amiodarone 200 mg daily Atorvastatin 40 mg daily Plavix 75 mg daily Penicillin V 250 mg twice daily Bumex 2 mg daily Entresto twice daily Follow-up in our office in 1 to 2 weeks.
[2024-11-17 13:17] LABS: POC Glucose,Bedside 85 gm/dL (70-110)
--- OUTSIDE RECORDS SUMMARY | 2024-11-17 13:18 | XMS_ITS | Encounter Summary ---
Author Organization Healthcare Address [address] [place] [address] Care Team Providers Care Eligibility Consultant Name Role Phone Cosme Davis MD Primary Care Provider [phone] Encounter Details Date Type Department Care Team [...] and Family Not on file 10/13/2024 Attends [employer] Not on file 10/13 Active Member [...] any time in the past 12 m [facility], were you homeless or living in a [place] facility (including now)? No 10/13/2024 [facility] Utilities Answer Date Recorded In [...] [facility] [address] [place] [address] 01/21/2025 2:00 PM EST Appointment [facility] [address] [place] [address] 01/21/2025 2:40 PM EST Office Visit [place] [facility] [address] [place] [address] Jose Rosario MD [address] [place] [address] documented as of this encounter [...] documented as of this encounter Care Teams Eligibility Consultant Relationship Specialty Start Date End Date Cosme Davis MD [address] [place] [address] PCP - General 06/24/20 documented as of this encounter
--- OUTSIDE RECORDS SUMMARY | 2024-11-17 13:19 | XMS_ITS | Encounter Summary ---
Author Organization [employer] ([place], [place], [place], [place]) Address [address] [place] [address] Care Team Providers Care Dynamite Packing Machine Feeder Name Role Phone Unavailable Primary Care Provider Unavailabl e Encounter Details Date Type Department Care Team (Late st Contact Info) Description 03/28/2018 Transcribed Document [facility] [place] [facility] [place] [address] ProviderZion MD [address] [place] [id number] Social History Tobacco Use Types Packs/Day Years Used Date Smoking Tobacco: Never Assessed Comments Unknown Sex and Gender Information Value Date Recorded Sex Assigned at Not on file Legal Sex Female 4:39 PM CDT Gender Identity Not on file Sexual Orientation Not on file documented as of this encounter Miscellaneous Notes * Cerner Conversion Note - Zion ProviderMD - 03/28/2018 12:56 PM PUSHER RUNNER Patient: ETHAN CRONIN Age: 57 years Sex: Female : 1960 Associated Diagnoses: None Author: CARROLL HIGH MD-INF Basic Information CC: Sepsis bacteremia 03/19/18 4/4 bottles for Group b strep ([facility]), mitral prosthetic valve endocarditis History of Present Illness 57-year-old white female with history of bladder cancer, atrial flutter, pacemaker placement 2016, hypertension, DM2, COPD, pancreatitis, who recently had blood cultures obtained at [facility] on 03/19/18 for fever which were positive in 4 out of 4 bottles for group B Streptococcus. Patient was to start IV antibiotics but was found to have bradycardia and was admitted to [facility] on 03/23/17. I was consulted on 03/25/17. The patient had been started on vancomycin and Rocephin. Urine culture obtained at [facility] was positive for multiple bacteria consistent [...] cefTRIAXone (Rocephin) - 2 Gram, IV Piggyback, [id number], infuse over 30 Minute(s), Routine Anticoagulant heparin [...] Normal strength, No tenderness. Integumentary: Warm, Dry, [place], No pallor, No rash, Left chest wall [...] 23) Troponin <0.015 (MAR 23) , ACC: [id number] ORDER: Culture Blood DATE: 03/23/2018 17:49 SOURCE: Blood SITE: Reports Pre 03/27/2018 23:01 No growth at 4 days. Pre 03/26/2018 23:01 No growth at 3 days. Pre 03/25/2018 23:01 No growth at 2 days. Pre 03/24/2018 23:02 No growth at 1 day. Pre 03/24/2018 16:03 Culture less than 24 Hrs old == ACC: [id number] ORDER: Culture Blood DATE: 03/23/2018 17:49 SOURCE: [...] of 4 blood culture bottles positive at [facility] (spoke to Maurice Spencer, at [facility]). BROCK consistent with mitral valve [...] Dr. Perez's service, cardiology, and Dr. Alan.. international bank manager: Please arrange for outpatient IV antibiotics with Rocephin 2 g IV every 12 hours until 05/04/18. Follow CBC, CMP, CRP weekly while on IV antibiotics. Fax orders to [phone], and call [phone] with final arrangements. Arrange for follow-up with me in 2 weeks post discharge. documented in this encounter Plan of Treatment Not on file documented as of this encounter Visit Diagnoses Not on filedocumented in this encounter
--- OUTSIDE RECORDS SUMMARY | 2024-11-17 13:19 | XMS_ITS | Encounter Summary ---
Author Organization [employer] ([place], [place], [place], [place]) Address [address] [place] [address] Care Team Providers Care Dehydrogenation Converter Operator Name Role Phone Unavailable Primary Care Provider Unavailabl e Encounter Details Date Type Department Care Team (Late st Contact Info) Description 03/29/2018 Transcribed Document [facility] [place] [facility] [place] [address] [place] [address] ProviderZion MD [address] [place] [id number] Social History Tobacco Use Types Packs/Day Years Used Date Smoking Tobacco: Never Assessed Comments Unknown Sex and Gender Information Value Date Recorded Sex Assigned at Not on file Legal Sex Female 4:39 PM CDT Gender Identity Not on file Sexual Orientation Not on file documented as of this encounter Miscellaneous Notes * Cerner Conversion Note - Historical ProviderMD - 03/29/2018 2:00 AM GAS APPLIANCE SERVICER HELPER Stacker Details Entered On: 03/29/2018 6:43 EST Performed [...]
--- OUTSIDE RECORDS SUMMARY | 2024-11-17 13:19 | XMS_ITS | Encounter Summary ---
Author Organization [employer] ([place], [place], [place], [place]) Address [address] [place] [address] Care Team Providers Care Oven Heater Name Role Phone Unavailable Primary Care Provider Unavailabl e Encounter Details Date Type Department Care Team (Late st Contact Info) Description 03/28/2018 Transcribed Document [facility] [place] [address] [place] [address] ProviderZion MD [address] [place], [place] [id number] Social History Tobacco Use Types Packs/Day Years Used Date Smoking Tobacco: Never Assessed Comments Unknown Sex and Gender Information Value Date Recorded Sex Assigned at Not on file Legal Sex Female 4:39 PM CDT Gender Identity Not on file Sexual Orientation Not on file documented as of this encounter Miscellaneous Notes * Cerner Conversion Note - Zion ProviderMD - 03/28/2018 7:46 AM OUTSIDE FOOD SERVER Patient: ETHAN LOREDO Age: 57 years Sex: [...] Rocephin: 2 Gram, 100 mL/Hr, IV Piggyback, [id number] Tylenol: 650 mg, Oral, Q4H, PRN: Other [...] of motion, Normal strength. Integumentary: Warm, Dry, [place]. Neurologic: Alert, Oriented. Psychiatric: Cooperative, Appropriate mood [...] in 4-[address] Marcano at [facility]. 03/27/18 Options discussed with pt-Definitive Rx would require redo-MV sugery/device explant-reimplant. Surgical risk is high given severe carotid dx. Conservative initial Rx w/ repeat BROCK in 4-6 is reasonable option. CTS to see/EP following. Continue current CV meds. Add Plavix if no surgery. Electronically signed by Jorge Alberto, [facility] Conversion Wrestling Coach Cerner at 05/29/2022 8:35 PM CDT documented in this encounter Plan of Treatment Not on file documented as of this encounter Visit Diagnoses Not on filedocumented in this encounter
--- OUTSIDE RECORDS SUMMARY | 2024-11-17 13:19 | XMS_ITS | Encounter Summary ---
Author Organization Healthcare Address [address] [place] [address] Care Team Providers Care Kiln Remover Name Role Phone Cosme Davis MD Primary Care Provider [phone] Encounter Details Date Type Department Care Team [...] were you homeless or living in a half-way (including now)? No 10/13/2024 [facility] Utilities Answer Date Recorded In the [...] Info) Description 01/21/2025 1:30 PM EST Appointment [facility] Vascular Lab [address] [place] [address] 01/21/2025 2:00 PM EST Appointment [facility] Vascular Lab [address] [place] [address] 01/21/2025 2:40 PM EST Office Visit [facility] [address] [place] [address] Jose Rosario MD [address] [place] [phone] documented as of this encounter Visit Diagnoses Not on filedocumented in this encounter Additional Health Concerns Assessment Noted Time A Body Mass Index follow-up plan has been documented for the patient 10/30/2024 1:27 PM EDT documented as of this encounter Care Teams Kiln Remover Relationship Specialty Start Date End Date Cosme Davis MD [address] [place] [address] PCP - General 06/24/20 documented as of this encounter
--- OUTSIDE RECORDS SUMMARY | 2024-11-17 13:19 | XMS_ITS | Clinical Summary ---
Author Organization [facility] Address [address] [place] [address] Phone Care Team Providers Care Structural Engineering Drafting Officer Name Role Phone Kar RAJPUT, Willa Molina Unavailable Conditions or Problems Problem Name Problem Code Onset Date Status Entry Date Provider Comment Standard Description Annotate Other obesity due to excess calories 729611177 (SNOMED CT) 06/03 Active 06/03 Sharona Annamaria Simple obesity Nicotine dependence 88820534 (SNOMED CT) 06/03 Active 06/03 Sharona Yin Nicotine dependence Coronary artery disease, S/P CABG 93043198 (SNOMED CT) 04/11 Active 04/11 Elvira Beth Coronary arteriosclerosis ARF due to infection 808291259 (SNOMED CT) 04/11 Active 04/11 Elvira Beth Acute renal failure due to ischemia Heart valve prosthesis, infection/inf lammatory reaction, subsequent encounter T82.6xxD (ICD-10-CM ) 04/11 Active 04/11 Elvira Beth 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, subsequent encounter Acute and subacute bacterial endocarditis 344459273 (SNOMED CT) 04/11 Active 04/11 Elvira Beth Acute and subacute bacterial endocarditis Group B strep sepsis A40.1 (ICD-10-CM ) 04/11 Active 04/11 Elvira Beth Sepsis due to streptococcus, group B DM Type II 65261681 (SNOMED CT) 04/11 Active 04/11 Elvira Beth Type 2 diabetes mellitus Hypoalbuminem ia 989497032 (SNOMED CT) 04/11 Active 04/11 Elvira Beth Hypoalbuminemia Medications Medication Instructions Start Date Stop Date Generic Name NDC Provider CEFTRIAXONE SODIUM 2 GM SOLR 2gm IV Q12hrs/ [facility] [phone] Plan to start at [facility] 04/18/18 to do 2xper day infusion. CEFTRIAXONE SODIUM 58472246686 Frida Morales PENICILLIN V POTASSIUM 250 MG TABS 1 by mouth twice a day for life PENICILLIN V POTASSIUM 42141509313 Gama Diaz MD PENICILLIN V POTASSIUM 250 MG/5ML SOLR 1 by mouth twice a day 30 days PENICILLIN V POTASSIUM 35444297408 Edie Hooks RN PENICILLIN V POTASSIUM 250 MG TABS 1 by mouth twice a day 30 days PENICILLIN V POTASSIUM 91400850349 Edie Hooks RN PENICILLIN V POTASSIUM 250 MG/5ML SOLR 1 by mouth twice a day 30 days PENICILLIN V POTASSIUM 91841575542 Gama Diaz MD PENICILLIN V POTASSIUM 250 MG TABS 1 by mouth twice a day 30 days PENICILLIN V POTASSIUM 97039900903 Gama Diaz MD CARDIZEM 120 MG TABS 1 tab once daily DILTIAZEM HCL 23303452422 Tahira Lucero VITAMIN D (CHOLECALCIFEROL ) 25 MCG (1000 UT) CAPS as instructed CHOLECALCIFEROL 66820334535 Tahira Lucero CEFTRIAXONE SODIUM 2 GM SOLR 2gm IV Q12hrs/ [facility] [phone] Plan to start at [facility] 04/18/18 to do 2xper day infusion. CEFTRIAXONE SODIUM 15102133107 Willa Lakhani RN PRAVASTATIN SODIUM 20 MG TABS Take one by mouth daily PRAVASTATIN SODIUM 29665482520 Garima Restrepo PLAVIX 75 MG TABS Take one by mouth daily CLOPIDOGREL BISULFATE 06437867380 Garima Restrepo NOVOLIN 70/30 (70-30) 100 UNIT/ML SUSP 20 units in AM, 10 units in PM INSULIN NPH ISOPHANE & REGULAR 91270659929 Garima Restrepo [facility] NICOTINE 21 MG/24HR PT24 1 patch daily NICOTINE 76143491157 Gariam Floriandox LEVOTHYROXINE SODIUM 25 MCG TABS Take one by mouth daily LEVOTHYROXINE SODIUM 81798870849 Garima Floriandox HUMALOG 100 UNIT/ML SUBCUTANEOUS SOLUTION sliding scale INSULIN LISPRO 71597504528 Garima Floriandox GABAPENTIN 300 MG CAPS Take one by mouth daily GABAPENTIN 86628929336 Garima Floriandox FLORASTOR 250 MG CAPS Take one by mouth daily SACCHAROMYCES BOULARDII 28100104221 Garima Floriandox CELEXA 20 MG TABS Take one by mouth daily CITALOPRAM HYDROBROMIDE 86047230657 Garima Floriandox CARVEDILOL 3.125 MG TABS Take one by mouth daily CARVEDILOL 38427780445 Garima Lazarox ADULT ASPIRIN REGIMEN 81 MG ORAL TABLET DELAYED RELEASE Take one by mouth daily ASPIRIN 45950082830 Garima Lazarox AMBIEN 5 MG TABS Take/use as needed. ZOLPIDEM TARTRATE 01028655199 Garima Floriandox ALPRAZOLAM 0.5 MG TABS Take one by mouth 3 times daily, morning, afternoon and evening. ALPRAZOLAM 97398026007 Garima Floriandox CEFTRIAXONE SODIUM 2 GM SOLR 2gm IV Q24hrs/ [place] [phone] CEFTRIAXONE SODIUM 61671689394 Edie Hooks RN Medications Administered No information [...] Documenta tion of current medications (procedure) DIET LEAD MINER BLASTING yes Dietary management education, guidance, and counseling [...] reactive protein [Mass/volume] in Serum or Plasma DeskActive-Vizimax-unk C-REACTIVE PROTEIN N GE use only - [...] Date CPT-[facility]oor[facility] Continue oral antibiotics 20 02/03/14 CPT-76253 CMP [id number] CBC with Differential 2019 CPT-58758 C- reactive protein CPT-sl STAT Labs CPT-15054 [facility] [id number] CBC with Differential 2018 CPT-14747 C- reactive protein CPT-Cooral Continue oral antibiotics 20 30/08/23 CPT-43375 CMP [id number] CBC with Differential 2018 CPT-79235 C- reactive protein CPT-Cooral Continue oral antibiotics 20 31/05/23 CPT-PICREM PICC Removal CPT-DC Discontinue IV antibiotics 2 CPT-jodi New Oral Antibiotic CPT-ca Continue IV antibiotics 2018 CPT-26010 CMP [id number] CBC with Differential 2018 CPT-79547 C- reactive protein Vital Signs Date Name [...]
--- OUTSIDE RECORDS SUMMARY | 2024-11-17 13:19 | XMS_ITS | Encounter Summary ---
Author Organization [employer] ([place], [place], [place], [place]) Address [address] [place] [address] Care Team Providers Care R D Internship Name Role Phone Unavailable Primary Care Provider Unavailabl e Encounter Details Date Type Department Care Team (Late st Contact Info) Description 03/28/2018 Transcribed Document [facility] [place] [address] [place] [address] ProviderZion MD [address] [place] [address] Social History Tobacco Use Types [...] - Historical ProviderMD - 03/28/2018 2:01 PM SOFTWARE DESIGN ANALYST Care Management Assessment/Plan Entered On: 03/28/2018 14:21 EST Performed On: 03/28/2018 14:01 EST by Ninoska Cuellar Rn-Market Editor Ed Care Management Note Anticipated Discharge Date : 04/03/2018 14:00 EST Care Management Note : CM spoke with Dr. Jones this am and he tells CM that pt is ready for discharge from his standpoint and that ID has a plan in place for IV abx. PT does have a PICC in place. Recieved VM from [facility] with [place] p [phone] stating they are interested in pt. CM went to to speak with pt to discuss bed offers. CM presented bed offers and pt tells CM that she really doesn't want to go to another facility. Pt tells CM that she only wants to go to [facility], as she has been there in the past. [facility] had not make bed offer at this time. BLAKE called and spoke with Gama in admissions at [facility] and she tells CM that per her DON, they do not believe they can meet pt's needs at this time. CM pressed for more information and Gama told CM that she would have DON call her. -CM then spoke with MADELYN Corona at [facility] and she states that pt appears too sick at this time to come to their facility. CM provided her with verbal updates, as well as faxed updates f [phone]. She states they will reevaluate now, knowing [...] pt at this time due to the $4025-3951 IV rocephin cost through 05/04/[address] Diaz orders. Cm to follow for ongoing d/c planning/needs. Care Management Note Report : Stew Porras RN - 03/27/18 16:25:12 blayne [facility] ( [facility]) called to make bed offer. bed offers will be presented to pt 03/28. [place] [phone] Stew Porras RN - 03/27/18 15:00:29 spoke to ID who states pt maybe ready for dc as early as 03/28. id and attending PA are recommending SNF. spoke with pt and her dtr, jazmine and informed them of suggestion from drs to dc to snf for iv abx. pt and dtr in agreement and referrlas made via [facility] to the following counties.... [place]. Stew Porras, REGULO - 03/27/18 10:34:34 RRS-43 + for BROCK CT consulted and per ID, infection must clear prior to any ant surgical intervention Currnelty on rocephin iv w/bld cx pending Documentation Status Complete : Yes Ninoska Cuellar, Rn-Market Editor Ed - 03/28/2018 14:01 EST Electronically signed by Jorge Alberto, [facility] Conversion Lead Auditor Cerner at 05/29/2022 8:46 PM CDT documented in this encounter Plan of Treatment Not on file documented as of this encounter Visit Diagnoses Not on filedocumented in this encounter
--- OUTSIDE RECORDS SUMMARY | 2024-11-17 13:19 | XMS_ITS | Encounter Summary ---
Author Organization [employer] ([place], [place], [place], [place]) Address [address] [place] [address] Care Team Providers Care Welding Equipment Repairer Supervisor Name Role Phone Unavailable Primary Care Provider Unavailabl e Encounter Details Date Type Department Care Team (Late st Contact Info) Description 03/29/2018 Transcribed Document [facility] [place] [address] [place] [address] ProviderZion MD [address] [place] [address] Social History Tobacco Use Types Packs/Day Years Used Date Smoking Tobacco: Never Assessed Comments Unknown Sex and Gender Information Value Date Recorded Sex Assigned at Not on file Legal Sex Female 4:39 PM CDT Gender Identity Not on file Sexual Orientation Not on file documented as of this encounter Miscellaneous Notes * Cerner Conversion Note - Historical ProviderMD - 03/29/2018 1:22 PM SCIENTIFIC HELPER Nursing Discharge Summary Entered On: 03/29/2018 13:22 EST Performed On: 03/29/2018 13:22 EST by Odalys Bush Rn-Hand Nailer Discharge Documentation Discharge, Comment : Report: Joshua [phone] Discharge Summary Sent to : Joshua [phone] Odalys Bush Rn-Hand Nailer - 03/29/2018 13:22 EST Electronically signed by Jorge Alberto [facility] Conversion Coordinator Of Placement Cerner at 05/29/2022 8:31 PM CDT documented in this encounter Plan of Treatment Not on file documented as of this encounter Visit Diagnoses Not on filedocumented in this encounter
--- OUTSIDE RECORDS SUMMARY | 2024-11-17 13:19 | XMS_ITS | Encounter Summary ---
Author Organization Healthcare Address [address] [place] [place] [address] Care Team Providers Care Furnace Charger Name Role Phone Cosme Davis MD Primary Care Provider [phone] Encounter Details Date Type Department Care Team [...] and Family Not on file 10/13/2024 Attends [facility] Not on file 10/13 Active Member [...] time in the past 12 m [facility], were you homeless or living in a alf (including now)? No 10/13/2024 [facility] Utilities Answer Date Recorded In the [...] [facility] [address] [place] [address] 01/21/2025 2:00 PM EST Appointment [facility] Vascular Lab [address] [place] [address] 01/21/2025 2:40 PM EST Office Visit [facility] Clinic [address] [place] [address] Jose Rosario MD [address] [place] [address] documented as of this encounter Visit Diagnoses Not on filedocumented in this encounter Additional Health Concerns Infection Onset Date Last Indicated Resolved Time ESBL 10/13/2024 10/13/2024 Assessment Noted Time A Body Mass Index follow-up plan has been documented for the patient 10/30/2024 1:27 PM EDT documented as of this encounter Care Teams Furnace Charger Relationship Specialty Start Date End Date Cosme Davis MD [address] [place] [address] PCP - General 06/24/20 documented as of this encounter
--- OUTSIDE RECORDS SUMMARY | 2024-11-17 13:19 | XMS_ITS | Encounter Summary ---
Author Organization [employer] ([place], [place], [place], [place]) Address [address] [place] [address] Care Team Providers Care Live In Housekeeper Name Role Phone Unavailable Primary Care Provider Unavailabl e Encounter Details Date Type Department Care Team (Late st Contact Info) Description 03/28/2018 Transcribed Document [facility] [place] [address] [place] [address] ProviderZion MD [address] [place] [address] Social History Tobacco Use [...] - Zion ProviderMD - 03/28/2018 6:04 PM PUBLIC RELATIONS ASSISTANT Patient: ETHAN LOREDO Age: 57 years Sex: [...] Rocephin: 2 Gram, 100 mL/Hr, IV Piggyback, [id number] Tylenol: 650 mg, Oral, Q4H, PRN: Other [...] Oral, Daily cefTRIAXone 2 Gram, IV Piggyback, [id number] citalopram 20 mg tab 20 mg 1 [...]
--- OUTSIDE RECORDS SUMMARY | 2024-11-17 13:19 | XMS_ITS | Encounter Summary ---
Author Organization [employer] ([place], [place], [place], [place]) Address [address] [place] [address] Care Team Providers Care Line Controller Name Role Phone Unavailable Primary Care Provider Unavailabl e Encounter Details Date Type Department Care Team (Late st Contact Info) Description 03/29/2018 Transcribed Document [facility] [place] [address] [place] [address] ProviderZion MD [address] [place] [address] Social History Tobacco Use Types [...] - Historical ProviderMD - 03/29/2018 1:22 PM SODA FLAKER Discharge Instructions Entered On: 03/29/2018 13:23 EST Performed On: 03/29/2018 13:22 EST by Odalys Bush Rn-Spinner Continuous DC Instructions HWD Discharge Summary Sent to : Joshua [phone] Special Instructions : Report: Joshua [phone] Odalys Bush Rn-Spinner Continuous - 03/29/2018 13:22 EST Electronically signed by Jorge Alberto [facility] Conversion Sheet Tailer Cerner at 05/29/2022 8:39 PM CDT documented in this encounter Plan of Treatment Not on file documented as of this encounter Visit Diagnoses Not on filedocumented in this encounter
--- OUTSIDE RECORDS SUMMARY | 2024-11-17 13:19 | XMS_ITS | Encounter Summary ---
Author Organization [employer] ([place], [place], [place], [place]) Address [address] [place] [address] Care Team Providers Care Medical Surgical Tech Name Role Phone Unavailable Primary Care Provider Unavailabl e Encounter Details Date Type Department Care Team (Late st Contact Info) Description 03/29/2018 Transcribed Document [facility] [place] [address] [place] [address] ProviderZion MD [address] [place] [address] Social History Tobacco Use Types [...] - Historical ProviderMD - 03/29/2018 5:00 AM NARCOTICS AND/OR VICE DETECTIVE Chart Check - Review Order Profile Entered On: 03/29/2018 6:43 EST Performed On: 03/29/2018 5:00 EST by Tiffany Guadalupe RN Chart Check Chart Reviewed Date and Time : 03/29/2018 6:43 EST Powerplans Initiated/Discontinued as Appropriate : Yes All Active Orders Reviewed : Yes Tiffany Guadalupe RN - 03/29/2018 6:43 EST Electronically signed by Jorge Alberto [facility] Conversion Manager Of Purchasing Cerner at 05/29/2022 8:36 PM CDT documented in this encounter Plan of Treatment Not on file documented as of this encounter Visit Diagnoses Not on filedocumented in this encounter
--- OUTSIDE RECORDS SUMMARY | 2024-11-17 13:19 | XMS_ITS | Encounter Summary ---
Author Organization [employer] ([place], [place], [place], [place]) Address [address] [place] [address] Care Team Providers Care Starchmaker Name Role Phone Unavailable Primary Care Provider Unavailabl e Encounter Details Date Type Department Care Team (Late st Contact Info) Description 03/28/2018 Transcribed Document [facility] [place] [address] [place] [address] ProviderZion MD [address] [place] [address] Social History Tobacco Use Types [...] - Historical ProviderMD - 03/28/2018 5:00 AM DIRECTOR ORACLE Chart Check - Review Order Profile Entered [...]
--- OUTSIDE RECORDS SUMMARY | 2024-11-17 13:19 | XMS_ITS | Encounter Summary ---
Author Organization [employer] ([place], [place], [place], [place]) Address [address] [place] [address] Care Team Providers Care Hair Assistant Name Role Phone Unavailable Primary Care Provider Unavailabl e Encounter Details Date Type Department Care Team (Late st Contact Info) Description 03/29/2018 Transcribed Document [facility] [place] [address] [place] [address] ProviderZion MD [address] [place] [address] Social History Tobacco Use Types [...] - Historical ProviderMD - 03/29/2018 3:30 PM CARPENTRY TEACHER Care Management Assessment/Plan Entered On: 03/29/2018 15:31 EST Performed On: 03/29/2018 15:30 EST by Odalys Bush Rn-Chief DeputyCeiling Insulation Blower Note Anticipated Discharge Date : 03/30/2018 14:00 EST Care Management Note : Patient discharge summary sent through [facility]. Care Management Note Report : Odalys Bush Rn-Chief Deputy - 03/29/18 13:22:06 Confirmed with [facility] that patient can transfer today [phone]; [phone]. Spoke with patient's daughter Jazmine [phone] who plans to transport[address] Dr[address] Hamilton advised and dishcarge pharmacy aware. Patient should be ready to transport by 15:00. Ninoska Cuellar Rn-Chief Deputy Ed - 03/28/18 20:23:22 CM faxed orders to [facility] for IV abx f [phone] per md orders. CM will need to call [facility] to notify them of final d/c plan per MD orders p [phone]. CM to follow for ongoing d/c planning/needs. Ninoska Cuellar, Rn-Chief Deputy Ed - 03/28/18 18:12:15 CM recieved call from Gama at [facility] stating they can take pt at their facility, but not until Saturday, as they now have an agreement with [facility]. CM then spoke with Edie from [facility] and she again confirms they can accept pt at their facility tomorrow. CM updated pt and now pt is agreeable to go to [facility]. She also gave CM permission to speak with Jazmine joshi by phone p [phone]. CM spoke with Jazmine and she is agreeable with plan for [facility], stating its much closer to them, approx 30 min. Pt tells CM that her PCP, Dr. [place] had told her that she was not able to do IV abx from home. Discharge plan will be to go to [facility] in the am. CM updated Dr. Stauffer and he reports he will notify [facility] for tomorrow. CM will cont to follow for ongoing d/c planning/needs. Ninoska Cuellar, Rn-Chief Deputy Ed - 03/28/18 16:01:02 Rubi[facility] Clem states home cost for Rocephin is $3.70/wk. She states they may be able to contract with SNF to provide abx at pt's cost. She asked CM to have SNF call Paulo at their office to see about arranging. CM called MADELYN Corona with [facility] and she will call [facility] to see if this can be arranged. Updated BS RNAva. CM will cont to follow. Ninoska Cuellar, Rn-Chief Deputy Ed - 03/28/18 14:57:29 Called [facility] and spoke with Chiquita and updated her on IV abx needs. SHe will check cost and call CM back to see if bed offer is still on the table. CM left for [facility] with [facility] to update her, left requesting return phone call. CM updated pt and she appears discouraged that [facility] will not accept her as a pt. She tells CM that she is considering just going home. BLAKE also called Clem with [facility] to argueta abx at home. She states that [facility] may also be able to contract with facility to provide them with abx at their cost. CM faxed info on pt and abx to [facility] f [phone]. CM updated BS RN, Ava. CM will cont to follow. Ninoska Cuellar, Rn-Chief Deputy Ed - 03/28/18 14:21:[address] Jones this am and he tells CM that pt is ready for discharge from his standpoint and that ID has a plan in place for IV abx. PT does have a PICC in place. Recieved VM from [facility] with [facility] p [phone] stating they are interested in pt. CM went to BS to speak with pt to discuss bed offers. CM presented bed offers and pt tells CM that she really doesn't want to go to another facility. Pt tells CM that she only wants to go to [facility], as she has been there in the past. [facility] had not make bed offer at this time. BLAKE called and spoke with Gama in admissions at [facility] and she tells CM that per her DON, they do not believe they can meet pt's needs at this time. CM pressed for more information and Gama told CM that she would have DON call her. -BLAKE then spoke with MADELYN Corona at [facility] and she states that pt appears too sick at this time to come to their facility. CM provided her with verbal updates, as well as faxed updates f [phone]. She states they will reevaluate now, knowing [...] pt at this time due to the $3303-2147 IV rocephin cost through 05/04/[address] Diaz orders. Cm to follow for ongoing d/c planning/needs. Stew Porras, RN - 03/27/18 16:25:12 edie from [place] ( ex [phone]) called to make bed offer. bed offers will be presented to pt 03/28. [facility] [phone] Stew Porras, RN - 03/27/18 15:00:29 spoke to ID who states pt maybe ready for dc as early as 03/28. id and attending PA are recommending SNF. spoke with pt and her dtr, jazmine and informed them of suggestion from drs to dc to snf for iv abx. pt and dtr in agreement and [facility]errlas [facility] [place] following [place].... [place]. Stew Porras, REGULO - 03/27/18 10:34:34 RRS-43 + for BROCK CT consulted and per ID, infection must clear prior to any ant surgical intervention Currnelty on rocephin iv w/bld cx pending Documentation Status Complete : Yes Odalys Bush Rn-Chief Deputy - 03/29/2018 15:30 EST Info/List/Choices Provided Patient Offered Choice/Affiliations Explained : Yes List/Info Provided Pt/Fam/Support Person : intermediate facilities Odalys Bush Rn-Chief Deputy - 03/29/2018 15:30 EST Final Discharge Disposition Note-CM Final Discharge Disposition Note-CM : Transport by Family. Discharge To Care Management : SNF with Medicare Certification-03 Name of Receiving Facility/Provider- : [facility] Odalys Bush Rn-Chief Deputy - 03/29/2018 15:30 EST documented in this encounter Plan of Treatment Not on file documented as of this encounter Visit Diagnoses Not on filedocumented in this encounter
--- OUTSIDE RECORDS SUMMARY | 2024-11-17 13:19 | XMS_ITS | Encounter Summary ---
Author Organization Healthcare Address [address] [place] [address] Care Team Providers Care Foreign Diplomat Name Role Phone Cosme [place] MD Primary Care Provider [phone] Encounter Details Date Type Department Care Team [...] and Family Not on file 10/13/2024 Attends Hoahaoism Services Not on file 10/13 Active Member [...] any time in the past 12 m [facility], were you homeless or living in a long term (including now)? No 10/13/2024 [facility] Utilities Answer Date Recorded In the [...] Info) Description 01/21/2025 1:30 PM EST Appointment [facility] [address], [address] [place] [address] 01/21/2025 2:00 PM EST Appointment [facility] [address] [place] [address] 01/21/2025 2:40 PM EST Office Visit [facility] [address], [address] [place] [address] Jose Rosario MD [address] [facility] [address] [place] [address] documented as of this encounter Visit Diagnoses Not on filedocumented in this encounter Additional Health Concerns Assessment Noted Time A Body Mass Index follow-up plan has been documented for the patient 10/30/2024 1:27 PM EDT documented as of this encounter Care Teams Foreign Diplomat Relationship Specialty Start Date End Date Cosme [place] MD [address] [place] [address] PCP - General 06/24/20 documented as of this encounter
--- OUTSIDE RECORDS SUMMARY | 2024-11-17 13:19 | XMS_ITS | Encounter Summary ---
Author Organization Healthcare Address [address] [place] [place] [address] Care Team Providers Care Manager Of Operations Name Role Phone Cosme [place] MD Primary Care Provider [phone] Encounter Details Date Type Department Care Team [...] and Family Not on file 10/13/2024 Attends Congregational Services Not on file 10/13 Active Member [...] any time in the past 12 m [facility], were you homeless or living in a long-term (including now)? No 10/13/2024 [facility] Utilities Answer Date Recorded In the [...] Info) Description 01/21/2025 1:30 PM EST Appointment [facility] [address] [facility] 5th Floor Wing [address], [address] [place] [address] 01/21/2025 2:00 PM EST Appointment [facility] [address] [place] [address] 01/21/2025 2:40 PM EST Office Visit [facility] [address] [facility] 5th Floor Wing [address], [address] [place] [address] Jose Rosario MD [address] [facility] [address] [place] [address] documented as of this encounter Visit Diagnoses Not on filedocumented in this encounter Additional Health Concerns 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
--- OUTSIDE RECORDS SUMMARY | 2024-11-17 13:19 | XMS_ITS | Encounter Summary ---
Author Organization [employer] ([place], [place], [place], [place]) Address [address] [place] [address] Care Team Providers Care Mechanical Artist Name Role Phone Unavailable Primary Care Provider Unavailabl e Encounter Details Date Type Department Care Team (Late st Contact Info) Description 03/28/2018 Transcribed Document [facility] [place] Family Medicine [place] [address] ProviderZion MD [address] [place] [address] Social History Tobacco Use Types Packs/Day Years Used Date Smoking Tobacco: Never Assessed Comments Unknown Sex and Gender Information Value Date Recorded Sex Assigned at Not on file Legal Sex Female 4:39 PM CDT Gender Identity Not on file Sexual Orientation Not on file documented as of this encounter Miscellaneous Notes * Cerner Conversion Note - Historical ProviderMD - 03/28/2018 11:06 AM PRIMER BOXER Patient: ETHAN LOREDO Age: 57 Years Sex: [...] regurgitation. Electronically signed by Vinayak Azul Conversion Event Lighting Specialist Bartolomener at 05/29/2022 8:39 PM CDT documented in this encounter Plan of Treatment Not on file documented as of this encounter Visit Diagnoses Not on filedocumented in this encounter
--- OUTSIDE RECORDS SUMMARY | 2024-11-17 13:19 | XMS_ITS | Clinical Summary ---
Author Organization [facility] Address [facility] [place] [address] Care Team Providers Care Police Judge Name Role Phone Pcp, No Primary Care Provider [phone] Source Comments This information has been disclosed [...] therelease of HIV test results or diagnoses. [id number] Allergies No known active allergies Medications [...] In the past 12 months has e [employer]), gas, oil, or water [employer] threatened to shut off services in your [...] the past [address] [facility], were you homeless or living in a halfway (including now)? No 03/05/2024 Comments Unknown Sex [...] ORDERABLES Fin al Result Performing Organization Address [facility] Co de Phone Number [facility] [address] [facility] * Protein / creatinine ratio, urine (03/07/2024 11:26 PM EST) Creatinine, Urine 28.30 mg/dL 03/07/2024 11:52 PM EST [facility] Comment:Reference range not established for this test. Total Protein, Ur 52 mg/dL 03/07/2024 11:52 PM EST [facility] Comment:Reference range not established for this test. Prot/Creat Ratio, Ur 1.84 ratio 03/07/2024 11:52 PM EST [facility] Urine 03/07/2024 11:2 6 PM EST 03/07/2024 11:36 PM EST Tate Castro MD URINE ORDERABLES Final R esult Performing Organization Address [facility] Co de Phone Number [facility] [address] * (ABNORMAL) Thyroid Function Andrews (03/06/2024 1:44 PM EST) TSH 6.15(H) 0.45 - 4.12 uIU/mL 03/06/2024 2:33 PM EST [facility] Serum 03/06/2024 1:44 PM EST 03/06/2024 1:50 PM EST us Angelo Chaudhry CNP LAB BLOOD ORDERABLES Final Result Performing Organization Address [facility] Co de Phone Number [facility] [address] * (ABNORMAL) Hemoglobin A1c (03/06/2024 5:42 AM EST) Hemoglobin A1C 6.4(H) 4.0 - 5.6 % 03/06/2024 1:13 PM EST [facility] Comment: Hemoglobin A1c Interpretation Guidelines: [...] ORDERABLES Bindu l Result Performing Organization Address City/[facility] Co de Phone Number [facility] [address] from Last 3 Months or Most Recently Relevant to Health Maintenance Insurance [employer]IC[employer] Advance Directives For more information, please contact: [phone] Documents on File Type Date Recorded Patient Newspaper Inserter Expl anation Durable Power of Screwdown Operator - scan 03/11/2024 * Full Code (Latest Code Status on File) Date Activated Date Inactivated Comments 03/05/2024 10:20 PM 03/09/2024 11:04 PM Care Teams Police Judge Relationship Specialty Start Date End Date Pcp, No [address] [place] [address] PCP - General 03/05/24
--- OUTSIDE RECORDS SUMMARY | 2024-11-17 13:19 | XMS_ITS | Encounter Summary ---
Author Organization Healthcare Address [address] [place] [place] [address] Care Team Providers Care City Constable Name Role Phone Cosme [place] MD Primary Care Provider [phone] Encounter Details Date Type Department Care Team [...] and Family Not on file 10/13/2024 Attends Taoist Services Not on file 10/13 Active Member [...] any time in the past 12 m [facility], were you homeless or living in a care home (including now)? No 10/13/2024 [facility] Utilities Answer Date Recorded In [...] Appointment [facility] [address] [facility] 5th Floor [address] [place] [address] 01/21/2025 2:00 PM EST Appointment [facility] [address] [place] [address] 01/21/2025 2:40 PM EST Office Visit [facility] [address] [facility] 5th Floor [address] [place] [address] Jose Rosario MD [address] [facility] [address] [place] [address] documented as of this encounter Visit Diagnoses Not on filedocumented in this encounter Additional Health Concerns Assessment Noted Time A Body Mass Index follow-up plan has been documented for the patient 10/30/2024 1:27 PM EDT documented as of this encounter Care Teams City Constable Relationship Specialty Start Date End Date Cosme [place] MD [address] [place] [address] PCP - General 06/24/20 documented as of this encounter
--- OUTSIDE RECORDS SUMMARY | 2024-11-17 13:19 | XMS_ITS | Encounter Summary ---
Author Organization [employer] ([place], [place], [place], [place]) Address [address] [place] [address] Care Team Providers Care Breastfeeding Peer Counselor Name Role Phone Unavailable Primary Care Provider Unavailabl e Encounter Details Date Type Department Care Team (Late st Contact Info) Description 03/28/2018 Transcribed Document [facility] [place] Family Medicine [address] [place] [address] ProviderZion MD [address] [place] [address] Social History Tobacco Use Types [...] - Historical ProviderMD - 03/28/2018 5:00 PM TOXICOLOGY TEACHER Chart Check - Review Order Profile Entered On: 03/28/2018 16:43 EST Performed On: 03/28/2018 17:00 EST by Ava Schmitt RN Chart Check Chart Reviewed Date and Time : 03/28/2018 16:43 EST Ava Schmitt RN - 03/28/2018 16:43 EST Electronically signed by Jorge Alberto [facility] Conversion Dog And Cat Food Cook Cerner at 05/29/2022 8:40 PM CDT documented in this encounter Plan of Treatment Not on file documented as of this encounter Visit Diagnoses Not on filedocumented in this encounter
--- OUTSIDE RECORDS SUMMARY | 2024-11-17 13:19 | XMS_ITS | Encounter Summary ---
Author Organization [employer] ([place], [place], [place], [place]) Address [address] [place] [address] Care Team Providers Care Tree Trimming Supervisor Name Role Phone Unavailable Primary Care Provider Unavailabl e Encounter Details Date Type Department Care Team (Late st Contact Info) Description 03/28/2018 Transcribed Document [facility] [place] [address] [place] [address] ProviderZion MD [address] [place] [address] Social History Tobacco Use Types [...] - Historical ProviderMD - 03/28/2018 3:56 PM INSPECTOR RAG SORTING Care Management Assessment/Plan Entered On: 03/28/2018 16:01 EST Performed On: 03/28/2018 15:56 EST by Ninoska Cuellar Rn-Technical Inspector Ed Care Management Note Anticipated Discharge Date [...] Care Management Note Report : Ninoska Cuellar Rn-Technical Inspector Ed - 03/28/18 14:57:29 Called [facility] and spoke with Chiquita and updated her on IV abx needs. SHe will check cost and call CM back to see if bed offer is still on the table. CM left for [facility] with [facility] to update her, left requesting return phone call. CM updated pt and she appears discouraged that [facility] will not accept her as a pt. She tells CM that she is considering just going home. CM also called Clem with [facility] to argueta abx at home. She states that [facility] may also be able to contract with facility to provide them with abx at their cost. CM faxed info on pt and abx to [facility] f [phone]. CM updated BS RN, Ava. CM will cont to follow. Ninoska Cuellar, Rn-Technical Inspector Ed - 03/28/18 14:21:[address] Jones this and he tells CM that pt is ready for discharge from his standpoint and that ID has a plan in place for IV abx. PT does have a PICC in place. Recieved VM from [facility] with [facility] p [phone] stating they are interested in pt. CM went to BS to speak with pt to discuss bed offers. CM presented bed offers and pt tells CM that she really doesn't want to go to another facility. Pt tells CM that she only wants to go to [facility], as she has been there in the past. [facility] had not make bed offer at this time. LBAKE called and spoke with Gama in admissions [...] updates, as well as faxed updates f [phone]. She states they will reevaluate now, knowing abx needs. She asked for bld cx results and CM called microbiology dept and was told that bld cx x2 from 03/23 were still negative, but would not be complete until this evening. CM informed facility of this information. CM then recieved callback from [facility] with admissions who states after rereview, they will not be able to take pt at this time due to the $4004-1357 IV rocephin cost through 05/04/[address] Diaz orders. Cm to follow for ongoing d/c planning/needs. Stew Porras, RN - 03/27/18 16:25:12 blayne from [place] ([phone]) called to make bed offer. bed offers will be presented to pt 03/28. [place] [phone] Stew Porras, REGULO - 03/27/18 15:00:29 spoke to ID who states pt maybe ready for dc as early as 03/28. id and attending PA are recommending SNF. spoke with pt and her dtr, jazmine and informed them of suggestion from drs to dc to snf for iv abx. pt and dtr in agreement and referrlas made via [facility] to the following [place].... [place]. Stew Porras, REGULO - 03/27/18 10:34:34 RRS-43 + for BROCK CT consulted and per ID, infection must clear prior to any ant surgical intervention Currnelty on rocephin iv w/bld cx pending Documentation Status Complete : Yes Ninoska Cuellar, Rn-Technical Inspector Ed - 03/28/2018 15:56 EST documented in this encounter Plan of Treatment Not on file documented as of this encounter Visit Diagnoses Not on filedocumented in this encounter
--- OUTSIDE RECORDS SUMMARY | 2024-11-17 13:19 | XMS_ITS | Encounter Summary ---
Author Organization [employer] ([place], [place], [place], [place]) Address [address] [place] [address] Care Team Providers Care Aluminum Molder Name Role Phone Unavailable Primary Care Provider Unavailabl e Encounter Details Date Type Department Care Team (Late st Contact Info) Description 03/28/2018 Transcribed Document [facility] [place] Family Medicine [address] [place] [address] ProviderZion MD [address] [place] [address] Social History Tobacco Use Types [...] - Historical ProviderMD - 03/28/2018 6:07 PM PHYSICAL THERAPY TECHNICIAN Care Management Assessment/Plan Entered On: 03/28/2018 18:12 EST Performed On: 03/28/2018 18:07 EST by Ninoska Cuellar, Rn-Cashier Parking Lot Ed Care Management Note Anticipated Discharge Date : 04/03/2018 14:00 EST Care Management Note : CM recieved call from Gama at [facility] stating they can take pt at their facility, but not until Saturday, as they now have an agreement with [facility]. CM then spoke with Edie from [facility] and she again confirms they can accept pt at their facility tomorrow. CM updated pt and now pt is agreeable to go to [facility]. She also gave CM permission to speak with Jazmine joshi by phone p [phone]. CM spoke with Jazmine and she is agreeable with plan for [facility], stating its much closer to them, approx 30 min. Pt tells BLAKE that her PCP, Dr. Davis had told her that she was not able to do IV abx from home. Discharge plan will be to go to [facility] in the am. CM updated Dr. Stauffer and he reports he will notify [facility] for tomorrow. CM will cont to follow for ongoing d/c planning/needs. Care Management Note Report : Ninoska Cuellar, Rn-Cashier Parking Lot Ed - 03/28/18 16:01:02 Vianeyjohn [facility]'s Mariahjesus states home cost for Rocephin is $3.70/wk. She states they may be able to contract with SNF to provide abx at pt's cost. She asked CM to have SNF call Paulo at their office to see about arranging. CM called MADELYN Corona with [facility] and she will call [facility] to see if this can be arranged. Updated BS RNAva. CM will cont to follow. Ninoska Cuellar, Rn-Cashier Parking Lot Ed - 03/28/18 14:57:29 Called [facility] and spoke with Chiquita and updated her on IV abx needs. SHe will check cost and call CM back to see if bed offer is still on the table. CM left for [facility] with [facility] to update her, left requesting return phone call. CM updated pt and she appears discouraged that [facility] will not accept her as a pt. She tells CM that she is considering just going home. BLAKE also called Clem with [facility] to argueta abx at home. She states that [facility] may also be able to contract with facility to provide them with abx at their cost. CM faxed info on pt and abx to [facility] f [phone]. CM updated BS RN, Ava. CM will cont to follow. Ninoska Cuellar, Rn-Cashier Parking Lot Ed - 03/28/18 14:21:[address] Jones this am and he tells CM that pt is ready for discharge from his standpoint and that ID has a plan in place for IV abx. PT does have a PICC in place. Recieved VM from [facility] with [facility] p [phone] stating they are interested in pt. CM went to BS to speak with pt to discuss bed offers. CM presented bed offers and pt tells CM that she really doesn't want to go to another facility. Pt tells CM that she only wants to go to [facility], as she has been there in the past. [facility] had not make bed offer at this [...] updates, as well as faxed updates f [phone]. She states they will reevaluate now, knowing [...] pt at this time due to the $6092-9736 IV rocephin cost through 05/04/[address] Diaz orders. Cm to follow for ongoing d/c planning/needs. Stew Porras RN - 03/27/18 16:25:12 edie from [facility] ( ex [address]) called to make bed offer. bed offers will be presented to pt 03/28. dtr will provide transportationashboise [phone] Stew Porras RN - 03/27/18 15:00:29 spoke to ID who states pt maybe ready for dc as early as 03/28. id and attending PA are recommending SNF. spoke with pt and her dtr, jazmine and informed them of suggestion from drs to dc to snf for iv abx. pt and dtr in agreement and referrlas made via [facility] to the following [place].... [place]. Stew Porras RN - 03/27/18 10:34:34 RRS-43 + for BROCK CT consulted and per ID, infection must clear prior to any ant surgical intervention Currnelty on rocephin iv w/bld cx pending Documentation Status Complete : Yes Ninoska Cuellar, Rn-Cashier Parking Lot Ed - 03/28/2018 18:07 EST Electronically signed by Jorge Alberto, [facility] Conversion Body Stylist Cerner at 05/29/2022 8:35 PM CDT documented in this encounter Plan of Treatment Not on file documented as of this encounter Visit Diagnoses Not on filedocumented in this encounter
--- OUTSIDE RECORDS SUMMARY | 2024-11-17 13:19 | XMS_ITS | Encounter Summary ---
Author Organization [employer] ([place], [place], [place], [place]) Address [address] [place] [address] Care Team Providers Care Blow Pit Helper Name Role Phone Unavailable Primary Care Provider Unavailabl e Encounter Details Date Type Department Care Team (Late st Contact Info) Description 03/28/2018 Transcribed Document [facility] Family Medicine [address] [place] [address] ProviderZion MD [address] [place] [address] Social History Tobacco Use Types [...] - Historical ProviderMD - 03/28/2018 8:22 PM BRAKE HOLDER Care Management Assessment/Plan Entered On: 03/28/2018 20:23 EST Performed On: 03/28/2018 20:22 EST by Ninoska Cuellar, Rn-Farmer And Grazier Ed Care Management Note Anticipated Discharge Date : 04/03/2018 14:00 EST Care Management Note : CM faxed orders to [facility] for IV abx f [phone] per md orders. CM will need to call [facility] to notify them of final d/c plan per orders p [phone]. CM to follow for ongoing d/c planning/needs. Care Management Note Report : Ninoska Cuellar, Rn-Farmer And Grazier Ed - 03/28/18 18:12:15 CM recieved call from Gama at [facility] stating they can take pt at their facility, but not until Saturday, as they now have an agreement with [facility]. CM then spoke with Edie from [facility] and she again confirms they can accept pt at their facility tomorrow. CM updated pt and now pt is agreeable to go to [facility]. She also gave CM permission to speak with Jazmine joshi by phone p [phone]. CM spoke with Jazmine and she is agreeable with plan for [facility], stating its much closer to them, approx 30 min. Pt tells CM that her PCP, Dr. Davis had told her that she was not able to do IV abx from home. Discharge plan will be to go to [facility] in the am. CM updated Dr. Stauffer and he reports he will notify [facility] for tomorrow. CM will cont to follow for ongoing d/c planning/needs. Ninoska Cuellar, Rn-Farmer And Grazier Ed - 03/28/18 16:01:02 [facility] Clem states home cost for Rocephin is $3.70/wk. She states they may be able to contract with SNF to provide abx at pt's cost. She asked CM to have SNF call Paulo at their office to see about arranging. CM called MADELYN Corona with [facility] and she will call [facility] to see if this can be arranged. Updated BS RNAva. CM will cont to follow. Ninoska Cuellar, Rn-Farmer And Grazier Ed - 03/28/18 14:57:29 Called [facility] and spoke with Chiquita and updated her on IV abx needs. SHe will check cost and call CM back to see if bed offer is still on the table. CM left for [facility] with [facility] to update her, left requesting return phone call. CM updated pt and she appears discouraged that [facility] will not accept her as a pt. [...] abx to [facility] f [phone]. CM updated BS RNAva. CM will cont to follow. Ninoska Cuellar, Rn-Farmer And Grazier Ed - 03/28/18 14:21:[address] Jones this am and he tells CM that pt is ready for discharge from his standpoint and that ID has a plan in place for IV abx. PT does have a PICC in place. Recieved VM from [facility] with [facility] p [phone] stating they are interested in pt. CM went to BS to speak with pt to discuss bed offers. CM presented bed offers and pt tells CM that she really doesn't want to go to another facility. Pt tells CM that she only wants to go to [facility], as she has been there in the past. [facility] had not make bed offer at this time. CM called and spoke with Gama in admissions at [facility] and she tells CM that per her DON, they do not believe they can meet pt's needs at this time. CM pressed for more information and Gama told CM that she would have DON call her. -CM then spoke with MADELYN Corona at [facility] and she states that pt appears too sick at this time to come to their facility. CM provided her with verbal updates, as well as faxed updates f [phone]. She states they will reevaluate now, knowing [...] pt at this time due to the $9636-4088 IV rocephin cost through 05/04/[address] Diaz orders. Cm to follow for ongoing d/c planning/needs. Stew Porras, RN - 03/27/18 16:25:12 edie from [facility] ([phone]) called to make bed offer. bed offers will be presented to pt 03/28. dtr will provide transportationashely [phone] Stew Porras, RN - 03/27/18 15:00:29 spoke to ID who states pt maybe ready for dc as early as 03/28. id and attending PA are recommending SNF. spoke with pt and her dtr, jazmine and informed them of suggestion from drs to dc to snf for iv abx. pt and dtr in agreement and referrlas made via [facility] to the following counties.... [place]. Stew Porras, REGULO - 03/27/18 10:34:34 RRS-43 + for BROCK CT consulted and per ID, infection must clear prior to any ant surgical intervention Currnelty on rocephin iv w/bld cx pending Documentation Status Complete : Yes Ninoska Cuellar, Rn-Farmer And Grazier Ed - 03/28/2018 20:22 EST Electronically signed by Jorge Alberto [facility] Conversion Unclaimed Property Officer Cerner at 05/29/2022 8:32 PM CDT documented in this encounter Plan of Treatment Not on file documented as of this encounter Visit Diagnoses Not on filedocumented in this encounter
--- OUTSIDE RECORDS SUMMARY | 2024-11-17 13:20 | XMS_ITS | Encounter Summary ---
Author Organization [employer] ([place], [place], [place], [place]) Address [address] [place] [address] Care Team Providers Care Manager Psychology Name Role Phone Unavailable Primary Care Provider Unavailabl e Encounter Details Date Type Department Care Team (Late st Contact Info) Description 03/28/2018 Transcribed Document [facility] [place] [address] [place] [address] ProviderZion MD [address] [place] [address] Social History Tobacco Use Types [...] - Historical ProviderMD - 03/28/2018 2:27 PM NETWORK ASSOCIATE Care Management Assessment/Plan Entered On: 03/28/2018 14:57 EST Performed On: 03/28/2018 14:27 EST by Ninoska Cuellar Rn-Relaster Ed Care Management Note Anticipated Discharge Date : 04/03/2018 14:00 EST Care Management Note : Called [facility] and spoke with Chiquita and updated her on IV abx needs. SHe will check cost and call CM back to see if bed offer is still on the table. CM left for Sheri with [facility] to update her, left requesting return phone call. CM updated pt and she appears discouraged that [facility] will not accept her as a pt. She tells CM that she is considering just going home. BLAKE also called Clem with [facility] to argueta abx at home. She states that [facility] may also be able to contract with facility to provide them with abx at their cost. CM faxed info on pt and abx to [facility] f [phone]. CM updated BS RN, Ava. CM will cont to follow. Care Management Note Report : Ninoska Cuellar, Rn-Relaster Ed - 03/28/18 14:21:[address] Jones this am and he tells CM that pt is ready for discharge from his standpoint and that ID has a plan in place for IV abx. PT does have a PICC in place. Recieved VM from [facility] with [facility] p [phone] stating they are interested in pt. CM went to BS to speak with pt to discuss bed offers. CM presented bed offers and pt tells CM that she really doesn't want to go to another facility. Pt tells CM that she only wants to go to [facility], as she has been there in the past. [facility] had not make bed offer at this time. CM called and spoke with Gama in admissions at [facility] and she tells CM that per her DON, they do not believe they can meet pt's needs at this time. CM pressed for more information and Gama told CM that she would have DON call her. -CM then spoke with MADELYN Corona at [facility] and she states that pt appears too sick at this time to come to their facility. CM provided her with verbal updates, as well as faxed updates f [phone]. She states they will reevaluate now, knowing [...] pt at this time due to the $9482-6484 IV rocephin cost through 05/04/[address] Diaz orders. Cm to follow for ongoing d/c planning/needs. Stew Porras, REGULO - 03/27/18 16:25:12 blayne from [facility] ( ex [address]) called to make bed offer. bed offers will be presented to pt 03/28. [facility] [phone] Stew Porras, RN - 03/27/18 15:00:29 spoke to ID who states pt maybe ready for dc as early as 03/28. id and attending PA are recommending SNF. spoke with pt and her dtr, jazmine and informed them of suggestion from drs to dc to snf for iv abx. pt and dtr in agreement and referrlas made via [facility] to the following counties.... [place]. Stew Porras, RN - 03/27/18 10:34:34 RRS-43 + for BROCK CT consulted and per ID, infection must clear prior to any ant surgical intervention Currnelty on rocephin iv w/bld cx pending Documentation Status Complete : Yes Ninoska Cuellar, Rn-Relaster Ed - 03/28/2018 14:27 EST Electronically signed by Jorge Alberto [facility] Conversion Linting Machine Operator Cerner at 05/29/2022 8:31 PM CDT documented in this encounter Plan of Treatment Not on file documented as of this encounter Visit Diagnoses Not on filedocumented in this encounter
--- OUTSIDE RECORDS SUMMARY | 2024-11-17 13:20 | XMS_ITS | Encounter Summary ---
Author Organization [employer] ([place], [place], [place], [place]) Address [address] [place] [address] Care Team Providers Care Water Treatment Operator Name Role Phone Unavailable Primary Care Provider Unavailabl e Encounter Details Date Type Department Care Team (Late st Contact Info) Description 03/27/2018 Transcribed Document [facility] Family Medicine [address] [place] [address] ProviderZion MD [address] [place] [address] Social History Tobacco Use Types [...] - Historical ProviderMD - 03/27/2018 4:23 PM FLAT LOCK OPERATOR Care Management Assessment/Plan Entered On: 03/27/2018 16:25 EST Performed On: 03/27/2018 16:23 EST by Stew Porras, RN Care Management Note Anticipated Discharge Date : 04/03/2018 14:00 EST Care Management Note : blayne from [facility] [facility] ( ex [address]) called to make bed offer. bed offers will be presented to pt 03/28. dtr will provide [facility] [phone] Care Management Note Report : Stew Porras [...] - 03/27/2018 16:23 EST Electronically signed by [facility], [facility] Conversion Head Of Conservation Cerner at 05/29/2022 8:47 PM CDT documented in this encounter Plan of Treatment Not on file documented as of this encounter Visit Diagnoses Not on filedocumented in this encounter
--- OUTSIDE RECORDS SUMMARY | 2024-11-17 13:20 | XMS_ITS | Encounter Summary ---
Author Organization [employer] ([place], [place], [place], [place]) Address [address] [place] [address] Care Team Providers Care Calliope Player Name Role Phone Unavailable Primary Care Provider Unavailabl e Encounter Details Date Type Department Care Team (Late st Contact Info) Description 03/26/2018 Transcribed Document [facility] [place] Family Medicine [address] [place] [address] ProviderZion MD [address] [place], [place] [id number] Social History Tobacco Use Types Packs/Day Years Used Date Smoking Tobacco: Never Assessed Comments Unknown Sex and Gender Information Value Date Recorded Sex Assigned at Not on file Legal Sex Female 4:39 PM CDT Gender Identity Not on file Sexual Orientation Not on file documented as of this encounter Miscellaneous Notes * Cerner Conversion Note - Historical ProviderMD - 03/26/2018 5:00 AM TRANSMISSION MECHANIC Chart Check - Review Order Profile Entered [...]
--- OUTSIDE RECORDS SUMMARY | 2024-11-17 13:20 | XMS_ITS | Encounter Summary ---
Author Organization [employer] ([place], [place], [place], [place]) Address [address] [place] [address] Care Team Providers Care Men'S Locker Room Attendant Name Role Phone Unavailable Primary Care Provider Unavailabl e Encounter Details Date Type Department Care Team (Late st Contact Info) Description 05/07/2018 Transcribed Document [facility] [place] [facility] [place] [address] ProviderZion MD [address] [place] [address] Social History Tobacco Use Types Packs/Day [...] Zion ProviderMD - 05/07/2018 4:09 PM CDT [address] [place] [address] Patient Copy Patient Information: Name: ETHAN CRONIN Current Date: 05/07/2018 16:09:51 : 1960 Patient Address: [address] [place] [id number] Patient Attending Physician: AJAY MARCANO MD-GUICHO Primary Care Provider: SUJIT DAWKINS (REF)MD-SHELLEY Primary Care Provider Discharge Diagnosis: Weight on Admission: 163 lb, 0 oz Comment: Follow-up Instructions: With: Address: When: JOHN TSAI [address] [facility] [place] [address] [employer] (1) 11:45 AM With: Address: When: AJAY MARCANO [address] [place] [address], [address] [place] [address] Cell[employer]ape (1) Within 2 to 3 days Comments: [...] you are awake and alert. ??? Take wmnc-hqj-ihambmd and prescription medicines only as told by [...] 11/18/2013 Document Revised: 07/02/2016 Document Reviewed: 05/19/2016 [employer] Interactive Patient Education ? 2017 [employer] Transesophageal Echocardiogram Transesophageal echocardiography (BROCK) is [...] 11/25/2009 Document Revised: 07/05/2016 Document Reviewed: 07/30/2013 [employer] Interactive Patient Education ? 2017 [employer] CIGARETTE SMOKING: The facts are clear, cigarette smoking will shorten your life. Smoking can cause many illnesses along the way. As a healthcare provider, we recommend that you stop smoking. Assistance with quitting is available by contacting 7-079-JSPZ-NOW. This is a free resource providing counseling, [...] Be sure to sign up for the [employer] patient portal, which gives you 03/09 access to your medical information ??? including these discharge instructions ??? using your computer, smartphone, or tablet. Just go to [employer] to get started. Questions? Call . [facility] would like to thank you for allowing us to assist you with your healthcare needs. GERTRUDE Mcconnell VERONICA GAY, (or software sales representative) have received the above patient education materials/instructions and have verbalized understanding: Patient Signature _ Date/Time Patient Auxiliary Engineer Signature (if needed) Date/Time Clinician/Hospital Auxiliary Engineer Signature (if needed) Date/Time Electronically signed by Interface, [facility] Conversion Advanced Seal Delivery System Cerner at 05/29/2022 8:55 PM CDT documented in this encounter Plan of Treatment Not on file documented as of this encounter Visit Diagnoses Not on filedocumented in this encounter
--- OUTSIDE RECORDS SUMMARY | 2024-11-17 13:20 | XMS_ITS | Referral Summary ---
Author Organization [employer] ([place], [place], [place], [place]) Address [address] [place] [address] Care Team Providers Care Inspector Penetrant Name Role Phone Unavailable Primary Care Provider [...]
--- OUTSIDE RECORDS SUMMARY | 2024-11-17 13:20 | XMS_ITS | Clinical Summary ---
[facility] Organization [facility] Address [address] [place] [address] Care Team Providers Care Ivory Carver Name Role Phone Cosme Davis MD Primary [...] Insurance MEDICARE A & B Care Teams Ivory Carver Relationship Specialty Start Date End Date Cosme Davis MD [address] [facility] [address] ATTN: [place] [address] PCP - General Emergency Medicine 06/04/18
--- OUTSIDE RECORDS SUMMARY | 2024-11-17 13:20 | XMS_ITS | Encounter Summary ---
Author Organization [employer] ([place], [place], [place], [place]) Address [address] [place] [address] Care Team Providers Care Heater Planer Operator Name Role Phone Unavailable Primary Care Provider Unavailabl e Encounter Details Date Type Department Care Team (Late st Contact Info) Description 03/27/2018 Transcribed Document [facility] [place] Family Medicine [address] [place] [address] ProviderZion MD [address] [id number] Social History Tobacco Use Types Packs/Day Years Used Date Smoking Tobacco: Never Assessed Comments Unknown Sex and Gender Information Value Date Recorded Sex Assigned at Not on file Legal Sex Female 4:39 PM CDT Gender Identity Not on file Sexual Orientation Not on file documented as of this encounter Miscellaneous Notes * Cerner Conversion Note - Historical ProviderMD - 03/27/2018 8:58 AM ELEVATOR RUNNER Consult Phone Call Documentation Entered On: 03/27/2018 [...]
--- OUTSIDE RECORDS SUMMARY | 2024-11-17 13:20 | XMS_ITS | Encounter Summary ---
Author Organization [employer] ([place], [place], [place], [place]) Address [address] [place] [address] Care Team Providers Care Industrial Illuminating Engineer Name Role Phone Unavailable Primary Care Provider Unavailabl e Encounter Details Date Type Department Care Team (Late st Contact Info) Description 03/25/2018 Transcribed Document [facility] [place] [address] [place] [address] ProviderZion MD [address] [place] [address] Social History Tobacco Use Types [...] - Historical ProviderMD - 03/25/2018 5:00 AM SHEETING PULLER Chart Check - Review Order Profile Entered [...]
--- OUTSIDE RECORDS SUMMARY | 2024-11-17 13:20 | XMS_ITS | Encounter Summary ---
Author Organization [employer] ([place], [place], [place], [place]) Address [address] [place] [address] Care Team Providers Care Microbiology Quality Control Technician Name Role Phone Unavailable Primary Care Provider Unavailabl e Encounter Details Date Type Department Care Team (Late st Contact Info) Description 03/27/2018 Transcribed Document [facility] [place] Family Medicine [facility] [place] [address] ProviderZion MD [address] [place] [id number] Social History Tobacco Use Types Packs/Day Years Used Date Smoking Tobacco: Never Assessed Comments Unknown Sex and Gender Information Value Date Recorded Sex Assigned at Not on file Legal Sex Female 4:39 PM CDT Gender Identity Not on file Sexual Orientation Not on file documented as of this encounter Miscellaneous Notes * Cerner Conversion Note - Zion ProviderMD - 03/27/2018 9:17 AM STRAPPING MACHINE TENDER Patient: ETHAN CRONIN Age: 57 years Sex: Female : 1960 Associated Diagnoses: None Author: CARROLL HIGH MD-INF Basic Information CC: Sepsis bacteremia 03/19/18 4/4 bottles for Group b strep ([facility]), mitral prosthetic valve endocarditis History of Present Illness 57-year-old white female with history of bladder cancer, atrial flutter, pacemaker placement 2016, hypertension, DM2, COPD, pancreatitis, who recently had blood cultures obtained at [facility] on 03/19/18 for fever which were positive in 4 out of 4 bottles for group B Streptococcus. Patient was to start IV antibiotics but was found to have bradycardia and was admitted to [facility] on 03/23/17. I was consulted on 03/25/17. The patient had been started on vancomycin and Rocephin. Urine culture obtained at [facility] was positive for multiple bacteria consistent [...] cefTRIAXone (Rocephin) - 2 Gram, IV Piggyback, [id number], infuse over 30 Minute(s), Routine Anticoagulant heparin [...] Normal strength, No tenderness. Integumentary: Warm, Dry, [place], No pallor, No rash, Left chest wall [...] 10) Troponin <0.015 (FEB 10) , ACC: [id number] ORDER: Culture Blood DATE: 03/23/2018 17:49 SOURCE: Blood SITE: Reports Pre 03/26/2018 23:01 No growth at 3 days. Pre 03/25/2018 23:01 No growth at 2 days. Pre 03/24/2018 23:02 No growth at 1 day. Pre 03/24/2018 16:03 Culture less than 24 Hrs old == ACC: [id number] ORDER: Culture Blood DATE: 03/23/2018 17:49 SOURCE: [...] of 4 blood culture bottles positive at [facility] (spoke to Maurice Spencer, at [facility]). BROCK consistent with mitral valve endocarditis, [...] and discussed with Dr. Perez's service, cardiology. poultry barn manager: Please arrange for outpatient IV antibiotics with Rocephin 2 g IV every 12 hours until 05/04/18. Follow CBC, CMP, CRP weekly while on IV antibiotics. Fax orders to [phone], and call [phone] with final arrangements. Arrange for follow-up with me in 2 weeks post discharge. documented in this encounter Plan of Treatment Not on file documented as of this encounter Visit Diagnoses Not on filedocumented in this encounter
--- OUTSIDE RECORDS SUMMARY | 2024-11-17 13:20 | XMS_ITS | Encounter Summary ---
Author Organization [employer] ([place], [place], [place], [place]) Address [address] [place] [address] Care Team Providers Care Duplicating Machine Mechanic Name Role Phone Unavailable Primary Care Provider Unavailabl e Encounter Details Date Type Department Care Team (Late st Contact Info) Description 03/25/2018 Transcribed Document [facility] [place] Family Medicine [address] [place] [address] ProviderZion MD [address] [place] [address] Social History Tobacco Use Types [...] - Historical ProviderMD - 03/25/2018 5:00 PM PRENATAL GENETIC COUNSELOR Chart Check - Review Order Profile Entered [...]
--- OUTSIDE RECORDS SUMMARY | 2024-11-17 13:20 | XMS_ITS | Encounter Summary ---
Author Organization [employer] ([place], [place], [place], [place]) Address [address] [place] [address] Care Team Providers Care Can Marker Name Role Phone Unavailable Primary Care Provider Unavailabl e Encounter Details Date Type Department Care Team (Late st Contact Info) Description 03/27/2018 Transcribed Document [facility] [place] Family Medicine [facility] [place] [address] ProviderZion MD [facility] [place] [address] Social History Tobacco Use Types [...] - Historical ProviderMD - 03/27/2018 9:05 AM MEDICAL OFFICE WORKER Patient: ETHAN LOREDO Age: 57 Years Sex: [...] mitral regurgitation. Electronically signed by Jorge Alberto [facility] Conversion Ice Seller Cerner at 05/29/2022 8:29 PM CDT documented in this encounter Plan of Treatment Not on file documented as of this encounter Visit Diagnoses Not on filedocumented in this encounter
--- OUTSIDE RECORDS SUMMARY | 2024-11-17 13:20 | XMS_ITS | Encounter Summary ---
Author Organization [employer] ([place], [place], [place], [place]) Address [address] [place] [address] Care Team Providers Care Windshield Technician Name Role Phone Unavailable Primary Care Provider Unavailabl e Encounter Details Date Type Department Care Team (Late st Contact Info) Description 03/25/2018 Transcribed Document [facility] [place] Family Medicine [address] [place] [address] ProviderZion MD [address] [place] [address] Social History Tobacco Use Types [...] - Historical ProviderMD - 03/25/2018 8:01 AM MACHINE TRACER Patient: ETHAN CRONIN Age: 57 years Sex: Female : 1960 Associated Diagnoses: None Author: NAVID STARKEY, [facility] 57 year old female with bradycardia during outpt infusion for bacteremia PMH: CAD, CABG/pacemaker 3 years ago, DM, HTN, and IN Consult: vancomycin Indication: bacteremia Goal of Trough: [...]
--- OUTSIDE RECORDS SUMMARY | 2024-11-17 13:20 | XMS_ITS | Encounter Summary ---
Author Organization [email or web address] ([place], [place], [place], [place]) Address [address] [place] [address] Care Team Providers Care Toddler Teacher Name Role Phone Unavailable Primary Care Provider Unavailabl e Encounter Details Date Type Department Care Team (Late st Contact Info) Description 03/24/2018 Transcribed Document [facility] [place] Medicine [address] [place] [address] ProviderZion MD [address] [place] [address] Social History Tobacco Use Types [...] - Historical ProviderMD - 03/24/2018 3:32 PM VIBRATION ENGINEER Event Note Entered On: 03/24/2018 15:32 EST Performed On: 03/24/2018 15:32 EST by Demetri Arrington Rn Event Note Event Date/Time : 03/24/2018 15:32 EST Description of Event : patient insisting on going down to smoke. smoking form signed Demetri Arrington Rn - 03/24/2018 15:32 EST Electronically signed by Jorge Alberto [facility] Conversion Top Cager Bartolomener at 05/29/2022 8:38 PM CDT documented in this encounter Plan of Treatment Not on file documented as of this encounter Visit Diagnoses Not on filedocumented in this encounter
--- OUTSIDE RECORDS SUMMARY | 2024-11-17 13:20 | XMS_ITS | Encounter Summary ---
Author Organization [email or web address] ([place], [place], [place], [place]) Address [address] [place] [address] Care Team Providers Care Enterprise Engineer Name Role Phone Unavailable Primary Care Provider Unavailabl e Encounter Details Date Type Department Care Team (Late st Contact Info) Description 03/27/2018 Transcribed Document [facility] [place] Family Medicine [address] [place] [address] ProviderZion MD [address] [place] [id number] Social History Tobacco Use Types Packs/Day Years Used Date Smoking Tobacco: Never Assessed Comments Unknown Sex and Gender Information Value Date Recorded Sex Assigned at Not on file Legal Sex Female 4:39 PM CDT Gender Identity Not on file Sexual Orientation Not on file documented as of this encounter Miscellaneous Notes * Cerner Conversion Note - Historical ProviderMD - 03/27/2018 2:00 AM TIP STRETCHER Plant Packer Details Entered On: 03/27/2018 5:00 EST Performed [...] Gabriela Reyes, RN - 03/27/2018 4:59 EST Electronically signed by Vinayak [employer] Conversion Cafe Or Restaurant Manager Cercarolin at 05/29/2022 8:48 PM CDT documented in this encounter Plan of Treatment Not on file documented as of this encounter Visit Diagnoses Not on filedocumented in this encounter
--- OUTSIDE RECORDS SUMMARY | 2024-11-17 13:20 | XMS_ITS | Encounter Summary ---
Author Organization [employer] ([place], [place], [place], [place]) Address [address] [place] [address] Care Team Providers Care Roving Carrier Name Role Phone Unavailable Primary Care Provider Unavailabl e Encounter Details Date Type Department Care Team (Late st Contact Info) Description 03/27/2018 Transcribed Document [facility] [place] [facility] [place] [address] ProviderZion MD [address] [place] [address] Social History Tobacco Use Types [...] - Historical ProviderMD - 03/27/2018 2:54 PM HYDROLOGY TEACHER Care Management Assessment/Plan Entered On: 03/27/2018 15:00 [...] dtr in agreement and referrlas made via [facility] to the following counties.... [place]. Care Management Note Report : Stew Porras RN - 03/27/18 10:34:34 RRS-43 + for BROCK CT consulted and per ID, infection must clear prior to any ant surgical intervention Currnelty on rocephin iv w/bld cx pending Documentation Status Complete : Yes Stew Porras, RN - 03/27/2018 14:54 EST Electronically signed by Jorge Alberto, [facility] Conversion Technology Auditor Cerner at 05/29/2022 8:28 PM CDT documented in this encounter Plan of Treatment Not on file documented as of this encounter Visit Diagnoses Not on filedocumented in this encounter
--- OUTSIDE RECORDS SUMMARY | 2024-11-17 13:20 | XMS_ITS | Encounter Summary ---
Author Organization [employer] ([place], [place], [place], [place]) Address [address] [place] [address] Care Team Providers Care Sliver Lap Tender Name Role Phone Unavailable Primary Care Provider Unavailabl e Encounter Details Date Type Department Care Team (Late st Contact Info) Description 03/27/2018 Transcribed Document [facility] [place] [address] [place] [address] ProviderZion MD [address] [place] [address] Social History Tobacco Use Types [...] - Historical ProviderMD - 03/27/2018 10:33 AM DIRECTOR EDUCATIONAL RADIO Care Management Assessment/Plan Entered On: 03/27/2018 10:34 [...] Patient History Note Report : DEEPA GALDAMEZ, Machine Woodworking Sander - 03/26/18 17:47:16 Talked w/ this 57 yr old W F transferred here from [facility] w/ bradycardia, positive blood cultures/strep B sepsis bactremia. PMH includes: bladder cancer, CAD s/p CABG, MVR, PPM plcmt (for which pt has had no F/U), pancreatitis, , COPD, DM, HTN, HLD, depression and anxiety. Pt underwent BROCK today due to concern for possible infected pacemaker (report not in yet). She is currently on 2gm IV rocephin, which [facility] says she will need until 04/20/18. Pt lives w/ her estranged spouse at [facility] address, claims she is indep w/ [...]
--- OUTSIDE RECORDS SUMMARY | 2024-11-17 13:20 | XMS_ITS | Encounter Summary ---
Author Organization [employer] ([place], [place], [place], [place]) Address [address] [place] [address] Care Team Providers Care Metal Bending Machine Operator Name Role Phone Unavailable Primary Care Provider Unavailabl e Encounter Details Date Type Department Care Team (Late st Contact Info) Description 03/24/2018 Transcribed Document [facility] [place] Family Medicine [address] [place] [address] ProviderZion MD [address] [place] [address] Social History Tobacco Use Types Packs/Day Years Used Date Smoking Tobacco: Never Assessed Comments Unknown Sex and Gender Information Value Date Recorded Sex Assigned at Not on file Legal Sex Female 4:39 PM CDT Gender Identity Not on file Sexual Orientation Not on file documented as of this encounter Miscellaneous Notes * Cerner Conversion Note - Historical ProviderMD - 03/24/2018 1:34 PM BELT MACHINE OPERATOR Consult Phone Call Documentation Entered On: 03/24/2018 14:54 EST Performed On: 03/24/2018 14:55 EST by MANE CARROLL Phone Call for Consults Consult Phone Call/Page Attempt : First call Consult Reason : Called in Consult on 03/24/18 at 1455 for: +positive blood cultures at [facility] perDr. Christian COLETHA - 03/24/2018 14:53 EST Electronically signed by [facility] Conversion Furniture Polisher Cerner at 05/29/2022 8:51 PM CDT documented in this encounter Plan of Treatment Not on file documented as of this encounter Visit Diagnoses Not on filedocumented in this encounter
--- OUTSIDE RECORDS SUMMARY | 2024-11-17 13:20 | XMS_ITS | Encounter Summary ---
Author Organization [employer] ([place], [place], [place], [place]) Address [address] [place] [address] Care Team Providers Care Varying Exceptionalities Teacher Name Role Phone Unavailable Primary Care Provider Unavailabl e Encounter Details Date Type Department Care Team (Late st Contact Info) Description 05/07/2018 Transcribed Document [facility] [place] Family Medicine [facility] [place] [address] ProviderZion MD [address] [place] [address] Social History Tobacco Use Types Packs/Day [...] Zion ProviderMD - 05/07/2018 1:16 PM CDT [address] [place] [address] Patient Copy Patient Information: Name: ETHAN CRONIN Current Date: 05/07/2018 13:16:44 : 1960 Patient Address: [address] [place] [id number] Patient Attending Physician: AJAY MARCANO MD-CAR Primary Care Provider: SUJIT DAWKINS (REF)IFTIKHAR Primary Care Provider Discharge Diagnosis: Weight on Admission: 163 lb, 0 oz Comment: Follow-up Instructions: With: Address: When: AJAY MARCANO [address] [facility] [place] [phone] Business (1) Within 2 to 3 days [...] 11/25/2009 Document Revised: 07/05/2016 Document Reviewed: 07/30/2013 [employer] Interactive Patient Education ? 2017 [employer]. CIGARETTE SMOKING: The facts are clear, cigarette smoking will shorten your life. Smoking can cause many illnesses along the way. As a healthcare provider, we recommend that you stop smoking. Assistance with quitting is available by contacting 2-334-PZCR-NOW. This is a free resource providing counseling, [...] Be sure to sign up for the [employer] patient portal, which gives you 03/09 access to your medical information ??? including these discharge instructions ??? using your computer, smartphone, or tablet. Just go to internetstores to get started. Questions? Call . [facility] would like to thank you for allowing us to assist you with your healthcare needs. GERTRUDE Mcconnell VERONICA GAY, (or provider relations representative) have received the above patient education materials/instructions and have verbalized understanding: Patient Signature _ Date/Time Patient Greenhouse Technician Signature (if needed) Date/Time Clinician/Hospital Greenhouse Technician Signature (if needed) Date/Time Electronically signed by Jorge Alberto, [employer] Conversion Accounting Manager Controller Cerner at 05/29/2022 8:56 PM CDT documented in this encounter Plan of Treatment Not on file documented as of this encounter Visit Diagnoses Not on filedocumented in this encounter
--- OUTSIDE RECORDS SUMMARY | 2024-11-17 13:20 | XMS_ITS | Encounter Summary ---
Author Organization [employer] ([place], [place], [place], [place]) Address [address] [place] [address] Care Team Providers Care Recovery Operator Helper Name Role Phone Unavailable Primary Care Provider Unavailabl e Encounter Details Date Type Department Care Team (Late st Contact Info) Description 03/27/2018 Transcribed Document [facility] [place] [address] [place] [address] ProviderZion MD [address] [place] [id number] Social History Tobacco Use Types Packs/Day Years Used Date Smoking Tobacco: Never Assessed Comments Unknown Sex and Gender Information Value Date Recorded Sex Assigned at Not on file Legal Sex Female 4:39 PM CDT Gender Identity Not on file Sexual Orientation Not on file documented as of this encounter Miscellaneous Notes * Cerner Conversion Note - Zion ProviderMD - 03/27/2018 9:26 AM INSTRUCTOR ADJUNCT PHARMACY TECHNICIAN Patient: ETHAN CRONIN Age: 57 years Sex: Female : 1960 Associated Diagnoses: None Author: AJAY MARCANO MD-CAR Basic Information PCP: Unknown Production Utility Worker: Chief Complaint 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 Social & Psychosocial Habits Tobacco 02/17/2015 Tobacco Use Within Last Twelve Months Cigarettes Smoking Status Current every day smoker Years of Tobacco Use 40 Packs/Tins Daily 1 Smoking Cessation Information Provided Yes Past Medical History: Active CAD - Coronary artery disease (5930822197) Cardiomyopathy (461736916) HLD - Hyperlipidemia (558527981) HTN - Hypertension (6841948845) Resolved COPD - Chronic obstructive pulmonary disease (618450180): Resolved. Family History: No family history items have been selected or recorded. Procedure history: CABG in 2016 at 55 Years. MAZE in 2016 at 55 Years. Cholecystectomy; (41968). Comments: 02/17/2015 11:52 - SUSI BOWMAN, REGULO [...] of motion, Normal strength. Integumentary: Warm, Dry, [place]. Neurologic: Alert, Oriented. Psychiatric: Cooperative, Appropriate mood & affect. Review / Management MAR 27 07:36 136 104 H 33 / H 137 4.0 L 20 0.90 \ Cardiac Markers (Current Encounter/Past 24 Hours) No Cardiac Marker Results Found (Past 24 Hours) Blood Gases (Current Encounter/Past 24 Hours) No Blood Gas Results Found (Past 24 Hours) Radiology Results (Last 48 hours) [id number] -- 03/23/2018 17:08 CT Abdomen Pelvis WO [...]
--- OUTSIDE RECORDS SUMMARY | 2024-11-17 13:20 | XMS_ITS | Encounter Summary ---
Author Organization [employer] ([place], [place], [place], [place]) Address [address] [place] [address] Care Team Providers Care Certified Personal Chef Name Role Phone Unavailable Primary Care Provider Unavailabl e Encounter Details Date Type Department Care Team (Late st Contact Info) Description 03/25/2018 Transcribed Document [facility] [place] [facility] [place] [address] ProviderZion MD [address] [place] [address] Social History Tobacco Use Types Packs/Day Years Used Date Smoking Tobacco: Never Assessed Comments Unknown Sex and Gender Information Value Date Recorded Sex Assigned at Not on file Legal Sex Female 4:39 PM CDT Gender Identity Not on file Sexual Orientation Not on file documented as of this encounter Miscellaneous Notes * [employer]ner Conversion Note - Historical ProviderMD - 03/25/2018 1:44 PM PROJECT LEADER Patient: ETHAN LOREDO Age: 57 Years Sex: [...] underlying sinus rhythm. 2. Biventricular internal cardioverter-defibrillator [employer], this device was reprogrammed, the values as [...] Electronically signed by Jorge Alberto, [employer] Conversion Die Attaching Machine Tender Tata at 05/29/2022 8:29 PM CDT documented in this encounter Plan of Treatment Not on file documented as of this encounter Visit Diagnoses Not on filedocumented in this encounter
--- OUTSIDE RECORDS SUMMARY | 2024-11-17 13:20 | XMS_ITS | Encounter Summary ---
Author Organization Healthcare Address [address] [id number] Care Team Providers Care Mainframe Systems Engineer Name Role Phone Cosme Davis MD Primary Care Provider [phone] Encounter Details Date Type Department Care Team (Late st Contact Info) Description 10/12/2024 Orders Only External Location [address] [place] [address] Tito Madrid MD [address] [place] [address] [place] [address] Social History Tobacco Use Types Packs/Day [...] and Family Not on file 10/13/2024 Attends [employer] Not on file 10/13 Active Member [...] any time in the past 12 m [facility], were you homeless or living in a custodial (including now)? No 10/13/2024 [facility] Utilities Answer Date Recorded In the past 12 months has th e garbs, gas, oil, or water [employer] threatened to shut off services in your [...] No Risk Indicated 10/16/2024 8:00 AM EDT Blososm Cintron RN * Question Answer Date of [...] Info) Description 01/21/2025 1:30 PM EST Appointment [facility] [address] [place] [address] 01/21/2025 2:00 PM EST Appointment [facility] [address] [place] [address] 01/21/2025 2:40 PM EST Office Visit [facility] [address] [place] [address] Jose Rosario MD [address] [facility] [address] [place] [address] documented as of this encounter Procedures Procedure [...] documented as of this encounter Care Teams Mainframe Systems Engineer Relationship Specialty Start Date End Date Cosme Daivs MD [address] [place] [address] PCP - General 06/24/20 documented as of this encounter
--- OUTSIDE RECORDS SUMMARY | 2024-11-17 13:20 | XMS_ITS | Encounter Summary ---
Author Organization [employer] ([place], [place], [place], [place]) Address [address] [place] [address] Care Team Providers Care Wooden Tank Erector Name Role Phone Unavailable Primary Care Provider Unavailabl e Encounter Details Date Type Department Care Team (Late st Contact Info) Description 03/25/2018 Transcribed Document [facility] [place] Family Medicine [address] [place] [address] ProviderZion MD [address] [place], [place] [id number] Social History Tobacco Use Types Packs/Day Years Used Date Smoking Tobacco: Never Assessed Comments Unknown Sex and Gender Information Value Date Recorded Sex Assigned at Not on file Legal Sex Female 4:39 PM CDT Gender Identity Not on file Sexual Orientation Not on file documented as of this encounter Miscellaneous Notes * Cerner Conversion Note - Zion ProviderMD - 03/25/2018 9:14 AM TEXTILE MACHINERY INSTRUCTOR Patient: ETHAN CRONIN Age: 57 years Sex: Female : 1960 Associated Diagnoses: None Author: CARROLL HIGH MD-INF Basic Information CC: Sepsis bacteremia 03/19/18 4/4 bottles for Group b strep ([facility]) History of Present Illness 57-year-old white female with history of bladder cancer, atrial flutter, pacemaker placement 2016, hypertension, DM2, COPD, pancreatitis, who recently had blood cultures obtained at [facility] on 03/19/18 for fever which were positive in 4 out of 4 bottles for group B Streptococcus. Patient was to start IV antibiotics but was found to have bradycardia and was admitted to [facility] on 03/23/17. I was consulted on 03/25/17. The patient had been started on vancomycin and Rocephin. Urine culture obtained at [facility] was positive for multiple bacteria [...] cefTRIAXone (Rocephin) - 2 Gram, IV Piggyback, [id number], infuse over 30 Minute(s), Routine vancomycin + Sodium Chloride 0.9% intravenous solution 250 m - 750 mg, IV Piggyback, [id number], infuse over 1 Hour(s) Anticoagulant heparin - [...] 11:52 - SUSI BOWMAN RN 2006 Cholecystectomy; (20176). Comments: 02/17/2015 11:52 - SUSI BOWMAN RN 2006 umbilical hernia repair. Social History Social & Psychosocial Habits Tobacco 02/17/2015 Tobacco Use Within Last Twelve Months Cigarettes Smoking Status Current every day smoker Years of Tobacco Use 40 Packs/Tins Daily 1 Smoking Cessation Information Provided Yes . , 3 children, lives in [facility] about 1[place]/2 hours from [place] Physical Examination VS/Measurements Vitals Signs (last 24 [...] Normal strength, No tenderness. Integumentary: Warm, Dry, [place], No pallor, No rash, Left chest wall [...] No Radiology Results Found Diagnostic Findings: ACC: [id number] ORDER: Culture Blood DATE: 03/23/2018 17:49 SOURCE: Blood SITE: Reports Pre 03/24/2018 23:02 No growth at 1 day. Pre 03/24/2018 16:03 Culture less than 24 Hrs old == [facility]: [id number] ORDER: Culture Blood DATE: 03/23/2018 17:49 SOURCE: Blood SITE: Reports Pre 03/24/2018 23:02 No growth at 1 day. Pre 03/24/2018 16:03 Culture less than 24 Hrs old == . Impression and Plan 1. Group B streptococcus sepsis 03/19/18 in 4 out of 4 blood culture bottles positive at [facility] (spoke to Maurice Spencer, at [facility]). The high-grade bacteremia suggests intravascular source [...]
--- OUTSIDE RECORDS SUMMARY | 2024-11-17 13:20 | XMS_ITS | Encounter Summary ---
Author Organization [employer] ([place], [place], [place], [place]) Address [address] [place] [address] Care Team Providers Care Home Appliance Technician Name Role Phone Unavailable Primary Care Provider Unavailabl e Encounter Details Date Type Department Care Team (Late st Contact Info) Description 03/28/2018 Transcribed Document [facility] [place] Family Medicine [address] [place] [address] ProviderZion MD [address] [place], [place] [id number] Social History Tobacco Use Types Packs/Day Years Used Date Smoking Tobacco: Never Assessed Comments Unknown Sex and Gender Information Value Date Recorded Sex Assigned at Not on file Legal Sex Female 4:39 PM CDT Gender Identity Not on file Sexual Orientation Not on file documented as of this encounter Miscellaneous Notes * Cerner Conversion Note - Historical ProviderMD - 03/28/2018 2:00 AM GROUP LEADER SEMICONDUCTOR TESTING Breakfast Manager Details Entered On: 03/28/2018 6:03 EST Performed [...]
--- OUTSIDE RECORDS SUMMARY | 2024-11-17 13:20 | XMS_ITS | Encounter Summary ---
Author Organization [employer] ([place], [place], [place], [place]) Address [address] [place] [address] Care Team Providers Care Destination Coordinator Name Role Phone Unavailable Primary Care Provider Unavailabl e Encounter Details Date Type Department Care Team (Late st Contact Info) Description 03/26/2018 Transcribed Document [facility] Family Medicine [facility] [place] [address] ProviderZion MD [address] [place] [address] Social History Tobacco Use Types [...] - Zion ProviderMD - 03/26/2018 10:05 AM HUMAN PROJECTILE Patient: ETHAN CRONIN Age: 57 years Sex: Female : 1960 Associated Diagnoses: None Author: CARROLL HIGH MD-INF Basic Information CC: Sepsis bacteremia 03/19/18 4/4 bottles for Group b strep ([facility]) History of Present Illness 57-year-old white female with history of bladder cancer, atrial flutter, pacemaker placement 2016, hypertension, DM2, COPD, pancreatitis, who recently had blood cultures obtained at [facility] on 03/19/18 for fever which were positive in 4 out of 4 bottles for group B Streptococcus. Patient was to start IV antibiotics but was found to have bradycardia and was admitted to [facility] on 03/23/17. I was consulted on 03/25/17. The patient had been started on vancomycin and Rocephin. Urine culture obtained at [facility] was positive for multiple [...] cefTRIAXone (Rocephin) - 2 Gram, IV Piggyback, [id number], infuse over 30 Minute(s), Routine Anticoagulant heparin [...] Normal strength, No tenderness. Integumentary: Warm, Dry, [place], No pallor, No rash, Left chest wall [...] 10) Troponin <0.015 (FEB 10) , ACC: [id number] ORDER: Culture Blood DATE: 03/23/2018 17:49 SOURCE: Blood SITE: Reports Pre 03/25/2018 23:01 No growth at 2 days. Pre 03/24/2018 23:02 No growth at 1 day. Pre 03/24/2018 16:03 Culture less than 24 Hrs old == ACC: [id number] ORDER: Culture Blood DATE: 03/23/2018 17:49 SOURCE: Blood SITE: Reports Pre 03/25/2018 23:01 No growth at 2 days. Pre 03/24/2018 23:02 No growth at 1 day. Pre 03/24/2018 16:03 Culture less than 24 Hrs old == . Procedure Critical Care - Code Management Assessment: Radiology Results (Last 48 hours) [id number] -- 03/23/2018 17:08 CT Abdomen Pelvis WO [...] of 4 blood culture bottles positive at [facility] (spoke to Maurice Spencer, at [facility]). The high-grade bacteremia suggests intravascular [...]
--- OUTSIDE RECORDS SUMMARY | 2024-11-17 13:20 | XMS_ITS | Encounter Summary ---
Author Organization [employer] ([place], [place], [place], [place]) Address [address] [place] [address] Care Team Providers Care Record Label Internship Name Role Phone Unavailable Primary Care Provider Unavailabl e Encounter Details Date Type Department Care Team (Late st Contact Info) Description 03/26/2018 Transcribed Document [facility] [place] Family Medicine [address] [place] [address] ProviderZion MD [address] [place] [address] Social History Tobacco Use Types [...] - Historical ProviderMD - 03/26/2018 10:40 AM ADJUNCT FACULTY Patient: ETHAN LOREDO Age: 57 Years Sex: [...]
--- OUTSIDE RECORDS SUMMARY | 2024-11-17 13:20 | XMS_ITS | Encounter Summary ---
Author Organization [employer] ([place], [place], [place], [place]) Address [address] [place] [address] Care Team Providers Care Sausage Wrapper Name Role Phone Unavailable Primary Care Provider Unavailabl e Encounter Details Date Type Department Care Team (Late st Contact Info) Description 03/25/2018 Transcribed Document [facility] [place] Family Medicine [address] [place] [address] ProviderZion MD [address] [place], [place] [id number] Social History Tobacco Use Types Packs/Day Years Used Date Smoking Tobacco: Never Assessed Comments Unknown Sex and Gender Information Value Date Recorded Sex Assigned at Not on file Legal Sex Female 4:39 PM CDT Gender Identity Not on file Sexual Orientation Not on file documented as of this encounter Miscellaneous Notes * Cerner Conversion Note - Historical ProviderMD - 03/25/2018 2:00 AM GRINDING MACHINE OPERATOR AUTOMATIC Annual Campaign Manager Details Entered On: 03/25/2018 4:05 EST Performed [...]
--- OUTSIDE RECORDS SUMMARY | 2024-11-17 13:20 | XMS_ITS | Encounter Summary ---
Author Organization Healthcare Address [address] [id number] Care Team Providers Care Brush Trimming Machine Setter Name Role Phone Cosme Davis MD Primary Care Provider [phone] Encounter Details Date Type Department Care Team (Late st Contact Info) Description 10/12/2024 Orders Only External Location [address] [place] [address] Tito Madrid MD [address] [place] [address] [place] [address] Social History Tobacco Use Types Packs/Day [...] and Family Not on file 10/13/2024 Attends [employer] Services Not on file 10/13 Active Member [...] in a jail (including now)? No 10/13/2024 [facility] Utilities Answer Date Recorded In the past 12 months has th e [employer], gas, oil, or water [employer] threatened to shut off services in your [...] Info) Description 01/21/2025 1:30 PM EST Appointment [facility] Vascular Lab [address] [place] [address] 01/21/2025 2:00 PM EST Appointment [facility] Lab [address] [place] [address] 01/21/2025 2:40 PM EST Office Visit [facility] [address] [place] [address] Jose Rosario MD [address] [facility] [address] [place] [address] documented as of this encounter Procedures Procedure [...] documented as of this encounter Care Teams Brush Trimming Machine Setter Relationship Specialty Start Date End Date Cosme Davis MD [address] [place] [address] PCP - General 06/24/20 documented as of this encounter
--- OUTSIDE RECORDS SUMMARY | 2024-11-17 13:20 | XMS_ITS | Encounter Summary ---
Author Organization [employer] ([place], [place], [place], [place]) Address [address] [place] [address] Care Team Providers Care Power Shovel Engineer Name Role Phone Unavailable Primary Care Provider Unavailabl e Encounter Details Date Type Department Care Team (Late st Contact Info) Description 03/27/2018 Transcribed Document [facility] [place] Family Medicine [facility] [place] [address] ProviderZion MD [address] [place] [id number] Social History Tobacco Use Types Packs/Day Years Used Date Smoking Tobacco: Never Assessed Comments Unknown Sex and Gender Information Value Date Recorded Sex Assigned at Not on file Legal Sex Female 4:39 PM CDT Gender Identity Not on file Sexual Orientation Not on file documented as of this encounter Miscellaneous Notes * Cerner Conversion Note - Historical ProviderMD - 03/27/2018 10:05 AM TIRE SHOP MANAGER Patient: ETHAN LOREDO Age: 57 Years [...]
--- OUTSIDE RECORDS SUMMARY | 2024-11-17 13:20 | XMS_ITS | Encounter Summary ---
Author Organization [employer] ([place], [place], [place], [place]) Address [address] [place] [address] Care Team Providers Care Mechanical Systems Designer Name Role Phone Unavailable Primary Care Provider Unavailabl e Encounter Details Date Type Department Care Team (Late st Contact Info) Description 03/26/2018 Transcribed Document [facility] [place] Family Medicine [address] [place] [address] ProviderZion MD [address] [place] [address] Social History Tobacco Use Types [...] - Historical ProviderMD - 03/26/2018 2:00 AM HOME EXTENSION AGENT Cytotechnologist/Histotechnologist Details Entered On: 03/26/2018 1:20 EST Performed [...]
--- OUTSIDE RECORDS SUMMARY | 2024-11-17 13:20 | XMS_ITS | Encounter Summary ---
Author Organization [employer] ([place], [place], [place], [place]) Address [address] [place] [address] Care Team Providers Care Shift Leader Name Role Phone Unavailable Primary Care Provider Unavailabl e Encounter Details Date Type Department Care Team (Late st Contact Info) Description 03/25/2018 Transcribed Document [facility] [place] Family Medicine [address] [place] [address] ProviderZion MD [address] [place], [place] [phone] Social History Tobacco Use Types Packs/Day Years Used Date Smoking Tobacco: Never Assessed Comments Unknown Sex and Gender Information Value Date Recorded Sex Assigned at Not on file Legal Sex Female 4:39 PM CDT Gender Identity Not on file Sexual Orientation Not on file documented as of this encounter Miscellaneous Notes * Cerner Conversion Note - Zion ProviderMD - 03/25/2018 7:28 AM CONTENT DIRECTOR DATE OF CONSULTATION: 03/24/2018 ELECTROPHYSIOLOGY CONSULTATION REFERRING HOSPITALIST: Omar Nelson M.D. CONSULTING CERTIFICATION TECHNICIAN: Jorge Hawkins MD REASON FOR CONSULTATION: Bradycardia. [...] been seen by Dr. Beard in the [facility]. The patient does have a history of [...] count of 379. [place] 1[place] [address]. Liver enzymes normal. EKG shows biventricular paced [...] CC1: Jorge Hawkins M.D. CC2: Dr. Beard; [place], [place] Electronically signed by Jorge Alberto [facility] Conversion Gandy Dancer [employer] at 05/29/2022 8:43 PM CDT documented in this encounter Plan of Treatment Not on file documented as of this encounter Visit Diagnoses Not on filedocumented in this encounter
--- OUTSIDE RECORDS SUMMARY | 2024-11-17 13:20 | XMS_ITS | Encounter Summary ---
Author Organization [employer] ([place], [place], [place], [place]) Address [address] [place] [address] Care Team Providers Care Hackler Doll Wigs Name Role Phone Unavailable Primary Care Provider Unavailabl e Encounter Details Date Type Department Care Team (Late st Contact Info) Description 03/27/2018 Transcribed Document [facility] [place] Family Medicine [address] [place] [address] ProviderZion MD [address] [place], [place] [id number] Social History Tobacco Use Types Packs/Day Years Used Date Smoking Tobacco: Never Assessed Comments Unknown Sex and Gender Information Value Date Recorded Sex Assigned at Not on file Legal Sex Female 4:39 PM CDT Gender Identity Not on file Sexual Orientation Not on file documented as of this encounter Miscellaneous Notes * Cerner Conversion Note - Historical ProviderMD - 03/27/2018 8:16 AM RUFFLER Consult Phone Call Documentation Entered On: 03/27/2018 [...] 11:26 EST Electronically signed by Jorge Alberto [facility] Conversion Personnel Placement Specialist [employer] at 05/29/2022 8:38 PM CDT documented in this encounter Plan of Treatment Not on file documented as of this encounter Visit Diagnoses Not on filedocumented in this encounter
--- OUTSIDE RECORDS SUMMARY | 2024-11-17 13:20 | XMS_ITS | Encounter Summary ---
Author Organization Healthcare Address [address] [place] [address] Care Team Providers Care General Helper Name Role Phone Cosme Davis MD Primary Care Provider [phone] Encounter Details Date Type Department Care Team [...] and Family Not on file 10/13/2024 Attends Yarsanism Services Not on file 10/13 Active Member [...] any time in the past 12 m [facility], were you homeless or living in a halfway (including now)? No 10/13/2024 [facility] Utilities Answer Date Recorded In the [...] 01/21/2025 1:[address] [facility] Vascular Lab [address] [facility] 5th Floor [address] [place] [address] 01/21/2025 2:[address] [facility] Lab [address] [facility] 5th Floor [address] [place] [address] 01/21/2025 2:40 PM EST Office Visit [facility] [address] [place] [address] Jose Rosario MD [address] [facility] [address] [place] [address] documented as of this encounter Visit Diagnoses Not on filedocumented in this encounter Additional Health Concerns Assessment Noted Time A Body Mass Index follow-up plan has been documented for the patient 10/30/2024 1:27 PM EDT documented as of this encounter Care Teams General Helper Relationship Specialty Start Date End Date Cosme Davis MD [address] [place] [address] PCP - General 06/24/20 documented as of this encounter
--- OUTSIDE RECORDS SUMMARY | 2024-11-17 13:20 | XMS_ITS | Encounter Summary ---
Author Organization [employer] ([place], [place], [place], [place]) Address [address] [place] [address] Care Team Providers Care Agricultural Commodities Grader Name Role Phone Unavailable Primary Care Provider Unavailabl e Encounter Details Date Type Department Care Team (Late st Contact Info) Description 03/27/2018 Transcribed Document [facility] [address] [place] [address] ProviderZion MD [address] [place] [address] Social History Tobacco Use Types [...] - Historical ProviderMD - 03/27/2018 5:00 AM DRILL DOCTOR Chart Check - Review Order Profile Entered [...]
--- OUTSIDE RECORDS SUMMARY | 2024-11-17 13:20 | XMS_ITS | Clinical Summary ---
Author Organization [employer] ([place], [place], [place], [place]) Address [address] [place] [address] Care Team Providers Care Healthcare Insurance Sales Agent Name Role Phone Unavailable Primary Care Provider [...]
--- OUTSIDE RECORDS SUMMARY | 2024-11-17 13:20 | XMS_ITS | Encounter Summary ---
Author Organization Healthcare Address [address] [id number] Care Team Providers Care Mesh Worker Name Role Phone Cosme Davis MD Primary Care Provider [phone] Encounter Details Date Type Department Care Team (Late st Contact Info) Description 10/12/2024 Orders Only External Location [address] [place] [address] Tito Madrid MD [address] [place] [address] Social History Tobacco Use Types Packs/Day [...] in the past 12 m [facility], were you homeless or living in a residential (including now)? No 10/13/2024 [facility] Utilities Answer Date Recorded In the past 12 months has th e [employer], gas, oil, or water [employer] threatened to shut off services in your [...] Info) Description 01/21/2025 1:30 PM EST Appointment [facility] Lab [address] [place] [address] 01/21/2025 2:00 PM EST Appointment [facility] [address] [place] [address] 01/21/2025 2:40 PM EST Office Visit [facility] [address] [place] [address] Jose Rosario MD [address] [facility] [address] [place] [address] documented as of this encounter Procedures Procedure [...] documented as of this encounter Care Teams Mesh Worker Relationship Specialty Start Date End Date Cosme Davis MD [address] [place] [address] PCP - General 06/24/20 documented as of this encounter
--- OUTSIDE RECORDS SUMMARY | 2024-11-17 13:21 | XMS_ITS | Encounter Summary ---
Author Organization [employer] ([place], [place], [place], [place]) Address [address] [place] [address] Care Team Providers Care Closing Supervisor Name Role Phone Unavailable Primary Care Provider Unavailabl e Encounter Details Date Type Department Care Team (Late st Contact Info) Description 03/29/2018 Transcribed Document [facility] [place] Family Medicine [facility] [place] [address] ProviderZion MD [address] [place] [id number] Social History Tobacco Use Types Packs/Day Years Used Date Smoking Tobacco: Never Assessed Comments Unknown Sex and Gender Information Value Date Recorded Sex Assigned at Not on file Legal Sex Female 4:39 PM CDT Gender Identity Not on file Sexual Orientation Not on file documented as of this encounter Miscellaneous Notes * [employer]ner Conversion Note - Zion ProviderMD - 03/29/2018 8:09 AM CONSTRUCTION PROJECT ASSISTANT Patient: ETHAN CRONIN Age: 57 years Sex: Female : 1960 Associated Diagnoses: None Author: CARROLL HIGH MD-INF Basic Information CC: Sepsis bacteremia 03/19/18 4/4 bottles for Group b strep ([facility]), mitral prosthetic valve endocarditis History of Present Illness 57-year-old white female with history of bladder cancer, atrial flutter, pacemaker placement 2016, hypertension, DM2, COPD, pancreatitis, who recently had blood cultures obtained at [facility] on 03/19/18 for fever which were positive in 4 out of 4 bottles for group B Streptococcus. Patient was to start IV antibiotics but was found to have bradycardia and was admitted to [facility] on 03/23/17. I was consulted on 03/25/17. The patient had been started on vancomycin and Rocephin. Urine culture obtained at [facility] was positive for multiple bacteria [...] cefTRIAXone (Rocephin) - 2 Gram, IV Piggyback, [id number], infuse over 30 Minute(s), Routine Anticoagulant heparin [...] Normal strength, No tenderness. Integumentary: Warm, Dry, [place], No pallor, No rash, Left chest wall [...] of 4 blood culture bottles positive at [facility] (spoke to Maurice Spencer, at [facility]). BROCK consistent with mitral valve [...] Dr. Perez's service, cardiology, and Dr. Alan.. 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 Follow CBC, CMP, CRP weekly while on IV antibiotics. Fax orders to [phone], and call [phone] with final arrangements. Arrange for follow-up with me in 2 weeks post discharge. documented in this encounter Plan of Treatment Not on file documented as of this encounter Visit Diagnoses Not on filedocumented in this encounter
--- OUTSIDE RECORDS SUMMARY | 2024-11-17 13:21 | XMS_ITS | Encounter Summary ---
Author Organization Healthcare Address [address] [place] [address] Care Team Providers Care Landfill Gas Collection Operator Name Role Phone Cosme Davis MD Primary Care Provider [phone] Encounter Details Date Type Department Care Team [...] Info) Description 01/21/2025 1:30 PM EST Appointment [facility] Lab [address] [place] [address] 01/21/2025 2:00 PM EST Appointment [facility] Lab [address] [place] [address] [address] [place] [address] 01/21/2025 2:40 PM EST Office Visit [facility] [address] [place] [address] Jose Rosario MD [facility] [address] [place] [address] documented as of this encounter Visit Diagnoses Not on filedocumented in this encounter Care Teams Landfill Gas Collection Operator Relationship Specialty Start Date End Date Cosme Davis MD [address] [facility] [place] [id number] PCP - General 06/24/20 documented as of this encounter
--- OUTSIDE RECORDS SUMMARY | 2024-11-17 13:21 | XMS_ITS | Encounter Summary ---
Author Organization [facility] ([place], [place], [place], [place]) Address [address] [place] [address] Care Team Providers Care Forms Examiner Name Role Phone Unavailable Primary Care Provider Unavailabl e Encounter Details Date Type Department Care Team (Late st Contact Info) Description 03/29/2018 Transcribed Document [facility] [address] [place] [address] ProviderZion MD [address] [place] [address] Social History Tobacco Use Types [...] - Zion ProviderMD - 03/29/2018 11:59 PM OPHTHALMIC TECHNICIAN APPRENTICE Patient: ETHAN CRONIN Age: 57 years Sex: [...] At Bedtime Rocephin 2 Gram, IV Piggyback, [id number]...until 05/04/18 for 6 weeks ID recommendations: continue Rocephin 2 g IV every 12 hours to continue until 05/04/18 for 6 weeks. Then may suppress afterwards with penicillin VK 250 mg by mouth twice a day for life. Follow up: ======= Follow up with PCP in 1-2 wks Follow up with Cardiology in 2-4 wks [place] in 4-[address] Alan at [facility]. follow up with ID in 2 weeks post discharge. follow up with CTS in 4 wks Disposition: ======== Rehab Discharge Summary: 57-year-old white female with history of bladder cancer, atrial flutter, pacemaker placement 2015, hypertension, DM2, COPD, pancreatitis, who recently had blood cultures obtained at [facility] on 03/19/18 for fever which were positive in 4 out of 4 bottles for group B Streptococcus. Patient was to start IV antibiotics but was found to have bradycardia and was admitted to [facility] on 03/23/17. Urine culture obtained at [facility] was positive for multiple bacteria consistent [...]
--- OUTSIDE RECORDS SUMMARY | 2024-11-17 13:21 | XMS_ITS | Clinical Summary ---
Author Organization [facility] Address [address] [place] [address] Care Team Providers Care Antique Collector Name Role Phone Cosme Davis MD Primary Care Provider [phone] Allergies No known active allergies Medications * [...] EC tablet 01/16/20 24 Active HYDROcodone-a cetaminophen ([place]) 5-325 MG tablet 11/03/19 25 Active insulin [...] - 11/13/2024 11:59 PM EDT Hospital Encounter [facility] Radiology [address] [place] [address] Pain in pelvis Discharge Disposition: Home or Self Care 11/13/2024 11:20 AM EDT Office Visit [facility] Orthopaedic Surgery & Sports Medicine [address] [place] [address] Paulo Marquis MD Pain in pelvis (Primary Dx) 11/13/2024 Travel 10/19/2024 Travel 10/18/2024 Travel 10/16/2024 Travel 10/14/2024 Travel 10/13/2024 Travel 10/12/2024 Orders Only External Location [address] [place] [address] Tito Madrid MD 10/12/2024 Orders Only External Location [address] [place] [address] Tito Madrid MD 10/12/2024 Orders Only External Location [address] [place] [address] Tito Madrid MD 10/12/2024 Travel 09/18/2024 Travel [...] and Family Not on file 10/13/2024 Attends Buddhist Services Not on file 10/13 Active Member [...] any time in the past 12 m [facility], were you homeless or living in a chcf (including now)? No 10/13/2024 [facility] Utilities Answer Date Recorded In the [...] Info) Description 01/21/2025 1:30 PM EST Appointment [facility] Vascular Lab [address] 5th Floor [address] [place] [address] 01/21/2025 2:00 PM EST Appointment [facility] Vascular Lab [address] 5th Floor [address] [place] [address] 01/21/2025 2:40 PM EST Office Visit [facility] Comprehensive Vascular Clinic [address] 5th Floor [address] [place] [address] Jose Rosario MD [address] [facility] [address] [place] [address] Health Maintenance Due Date Last Done Comments [facility]-Depression Screening 1962 [facility]-Medicare Annual Wellness (AWV) 1962 [facility]-/Child/Adol SDOH Screenings 1960 [id number] Vaccine (#1) 06/04/1967 Diabetes: Dental Exam 1972 [...] HORMONE (ACTH) Routine 10/16/2024 8:11 AM EDT [facility], E/M 30-74 MINUTES Routine 10/16/2024 [...] EDT CORTISOL Routine 10/15/2024 8:29 AM EDT [facility] CRITICAL CARE, E/M 30-74 MINUTES Routine 10/15/2024 [...] KNOWN SYPHILIS) Routine 10/14/2024 9:44 AM EDT MO CRITICAL CARE, E/M 30-74 MINUTES Routine 10/14/2024 [...] Routine 10/13/2024 9:26 AM EDT Shock (CMS/HCC) MO INSERT NON-TUNNEL CV CATH Routine 10/13/2024 9:26 AM EDT Shock (CMS/HCC) XR CHEST 1 VIEW STAT 10/13/2024 9:25 AM EDT HC INSERT CATH,ART,PERCUT,SHORTTERM Routine 10/13/2024 9:09 AM EDT Shock (CMS/HCC) MO INSERT CATH,ART,PERCUT,SHORTTERM Routine 10/13/2024 9:09 AM EDT [...] - 99 mg/dL 10/30/2024 12:01 PM EDT [facility] Comment:Accuracy of a glucos e result [...] 10/30/2024 12:01 PM EDT [facility] Livestock Producer ID Jessika Schneider [id number] 12:01 PM EDT [facility] Device ID [id number] 10/30/2024 12:01 PM EDT [facility] Specimen Type POC Capillary 10/30/2024 12:01 PM EDT [facility] Blood Capillary blood specimen / Unknown 10/30/2024 11:58 AM EDT 10/30/2024 12:01 PM EDT Tiffany Patten DO LAB POINT OF CARE TE ST DOCKED DEVICE UNSOLICITED RESULTS Final Result [facility] [address] [place] [address] * (ABNORMAL) CBC W/O Differential (10/28/2024 3:43 AM EDT) Only the most recent of4 resultswithin the time period is included. WBC Count 9.69 3.70 - 10.30 10*3/uL LAB HEMATOLOGY METHOD 10/28/2024 4:21 AM EDT [facility] RBC Count 2.95(L) 3.90 - 5.20 10*6/uL LAB HEMATOLOGY METHOD 10/28/2024 4:21 AM EDT [facility] HGB 8.3(L) 11.2 - 15.7 g/dL LAB HEMATOLOGY METHOD 10/28/2024 4:21 AM EDT [facility] HCT 27.0(L) 34.0 - 45.0 % LAB HEMATOLOGY METHOD 10/28/2024 4:21 AM EDT [facility] Platelet Count 363 155 - 369 10*3/uL LAB HEMATOLOGY METHOD 10/28/2024 4:21 AM EDT [facility] MCV 92 79 - 98 fL LAB HEMATOLOGY METHOD 10/28/2024 4:21 AM EDT [facility] MCH 28.1 26.0 - 32.0 pg LAB HEMATOLOGY METHOD 10/28/2024 4:21 AM EDT [facility] MCHC 30.7 30.7 - 35.5 g/dL LAB HEMATOLOGY METHOD 10/28/2024 4:21 AM EDT [facility] RDW 24.8(H) 11.5 - 14.5 % LAB HEMATOLOGY METHOD 10/28/2024 4:21 AM EDT [facility] MPV 11.9 8.8 - 12.5 fL LAB HEMATOLOGY METHOD 10/28/2024 4:21 AM EDT [facility] nRBC 0.0 <=0.0 per 100 WBCs LAB HEMATOLOGY METHOD 10/28/2024 4:21 AM EDT [facility] Blood Venous blood specimen / Unknown Venipuncture / Unknown 10/28/2024 3:43 AM EDT 10/28/2024 4:13 AM EDT Tiffany Patten LAB BLOOD ORDERABLES Final Re sult Performing Organization Address [facility] de Phone Number [facility]ALTH[facility] [address] [place] [address] * Magnesium, Plasma (10/28/2024 3:43 AM EDT) Only the most recent of5 resultswithin the time period is included. Magnesium, Plasma 2.2 1.9 - 2.4 mg/dL 10/28/2024 4:42 AM EDT [facility] Blood Venous blood specimen / Unknown Venipuncture / Unknown 10/28/2024 3:43 AM EDT 10/28/2024 4:13 AM EDT Tiffany Cerrato Sandor LAB BLOOD ORDERABLES Final Re sult Performing Organization Address [facility] de Phone Number [facility] [address] [place] [address] * (ABNORMAL) Renal Function Panel, Plasma (10/28/2024 3:43 AM EDT) Glucose, Plasma 276(H) 74 - 99 mg/dL 10/28/2024 4:42 AM EDT [facility] BUN, Plasma 89(H) 8 - 23 mg/dL 10/28/2024 4:42 AM EDT [facility] Creatinine, Plasma 2.19(H) 0.60 - 1.10 mg/dL 10/28/2024 4:42 AM EDT [facility] BUN/Creatinine Ratio 41 10/28/2024 4:42 AM EDT [facility] Sodium, Plasma 138 136 - 145 mmol/L 10/28/2024 4:42 AM EDT [facility] Potassium, Plasma 5.1(H) 3.6 - 4.9 mmol/L 10/28/2024 4:42 AM EDT [facility] Chloride, Plasma 102 97 - 107 mmol/L 10/28/2024 4:42 AM EDT [facility] CO2, Plasma 25 22 - 29 mmol/L 10/28/2024 4:42 AM EDT [facility] Anion Gap 11 6 - 16 mmol/L 10/28/2024 4:42 AM EDT [facility] Total Calcium, Plasma 8.9 8.9 - 10.2 mg/dL 10/28/2024 4:42 AM EDT [facility] Phosphorus, Plasma 2.8 2.5 - 4.5 mg/dL 10/28/2024 4:42 AM EDT [facility] Albumin, Plasma 3.0(L) 3.5 - 5.2 g/dL 10/28/2024 4:42 AM EDT [facility] eGFRcr 24.9 mL/min/1.7 3m*2 10/28/2024 4:42 AM EDT [facility] Comment:Reported eGFRcr in m L/min/1.73m2 is based the CKD-EPI 2020 equation that does not use a race coefficient. Blood Venous blood specimen / Unknown Venipuncture / Unknown 10/28/2024 3:43 AM EDT 10/28/2024 4:13 AM EDT us Tiffany Patten DO LAB BLOOD ORDERABLES Final Re sult [facility] [address] [place] [address] * (ABNORMAL) CBC and differential (10/26/2024 9:19 AM EDT) Only the most recent of11 resultswithin the time period is included. WBC Count 9.12 3.70 - 10.30 10*3/uL LAB HEMATOLOGY METHOD 10/26/2024 9:25 AM EDT [facility] RBC Count 3.03(L) 3.90 - 5.20 10*6/uL LAB HEMATOLOGY METHOD 10/26/2024 9:25 AM EDT [facility] HGB 8.5(L) 11.2 - 15.7 g/dL LAB HEMATOLOGY METHOD 10/26/2024 9:25 AM EDT [facility] HCT 27.1(L) 34.0 - 45.0 % LAB HEMATOLOGY METHOD 10/26/2024 9:25 AM EDT [facility] Platelet Count 331 155 - 369 10*3/uL LAB HEMATOLOGY METHOD 10/26/2024 9:25 AM EDT [facility] MCV 89 79 - 98 fL LAB HEMATOLOGY METHOD 10/26/2024 9:25 AM EDT [facility] MCH 28.1 26.0 - 32.0 pg LAB HEMATOLOGY METHOD 10/26/2024 9:25 AM EDT [facility] MCHC 31.4 30.7 - 35.5 g/dL LAB HEMATOLOGY METHOD 10/26/2024 9:25 AM EDT [facility] RDW 24.6(H) 11.5 - 14.5 % LAB HEMATOLOGY METHOD 10/26/2024 9:25 AM EDT [facility] MPV 11.4 8.8 - 12.5 fL LAB HEMATOLOGY METHOD 10/26/2024 9:25 AM EDT [facility] nRBC 0.0 <=0.0 per 100 WBCs LAB HEMATOLOGY METHOD 10/26/2024 9:25 AM EDT [facility] Differential Type Automated LAB HEMATOLOGY METHOD 10/26/2024 9:25 AM EDT [facility] Neutrophils % 76 % LAB HEMATOLOGY METHOD 10/26/2024 9:25 AM EDT [facility] Lymphocytes % 13 % LAB HEMATOLOGY METHOD 10/26/2024 9:25 AM EDT [facility] Monocytes % 7 % LAB HEMATOLOGY METHOD 10/26/2024 9:25 AM EDT [facility] Eosinophils % 3 % LAB HEMATOLOGY METHOD 10/26/2024 9:25 AM EDT [facility] Basophils % 1 % LAB HEMATOLOGY METHOD 10/26/2024 9:25 AM EDT [facility] Immature Granulocytes % 0 % LAB HEMATOLOGY METHOD 10/26/2024 9:25 AM EDT [facility] Neutrophils Absolute 6.90(H) 1.60 - 6.10 10*3/uL LAB HEMATOLOGY METHOD 10/26/2024 9:25 AM EDT [facility] Lymphocytes Absolute 1.22 1.20 - 3.90 10*3/uL LAB HEMATOLOGY METHOD 10/26/2024 9:25 AM EDT [facility] Monocytes Absolute 0.60 0.30 - 0.90 10*3/uL LAB HEMATOLOGY METHOD 10/26/2024 9:25 AM EDT [facility] Eosinophils Absolute 0.31 0.00 - 0.50 10*3/uL LAB HEMATOLOGY METHOD 10/26/2024 9:25 AM EDT [facility] Basophils Absolute 0.05 0.00 - 0.10 10*3/uL LAB HEMATOLOGY METHOD 10/26/2024 9:25 AM EDT [facility] Immature Granulocytes Absolute 0.04 0.00 - 0.06 10*3/uL LAB HEMATOLOGY METHOD 10/26/2024 9:25 AM EDT [facility] Blood Venous blood specimen / Unknown Venipuncture / Unknown 10/26/2024 9:19 AM EDT 10/26/2024 9:23 AM EDT Narrative [facility] - 10/26/2024 9:25 AM EDT Therapeutic decision making should be based on absolute values, rather than percentages. us Yuriy Lockett MD LAB BLOOD ORDERABLES Final Resul t [facility] [address] [place] [address] * (ABNORMAL) Basic metabolic panel (10/26/2024 9:19 AM EDT) Only the most recent of10 resultswithin the time period is included. Glucose, Plasma 244(H) 74 - 99 mg/dL 10/26/2024 9:49 AM EDT [facility] BUN, Plasma 76(H) 8 - 23 mg/dL 10/26/2024 9:49 AM EDT [facility] Creatinine, Plasma 1.97(H) 0.60 - 1.10 mg/dL 10/26/2024 9:49 AM EDT [facility] BUN/Creatinine Ratio 39 10/26/2024 9:49 AM EDT [facility] Sodium, Plasma 138 136 - 145 mmol/L 10/26/2024 9:49 AM EDT [facility] Potassium, Plasma 5.0(H) 3.6 - 4.9 mmol/L 10/26/2024 9:49 AM EDT [facility] Chloride, Plasma 102 97 - 107 mmol/L 10/26/2024 9:49 AM EDT [facility] CO2, Plasma 25 22 - 29 mmol/L 10/26/2024 9:49 AM EDT [facility] Anion Gap 11 6 - 16 mmol/L 10/26/2024 9:49 AM EDT [facility] Total Calcium, Plasma 8.7(L) 8.9 - 10.2 mg/dL 10/26/2024 9:49 AM EDT [facility] eGFRcr 28.3 mL/min/1.7 3m*2 10/26/2024 9:49 AM EDT [facility] Comment:Reported eGFRcr in m L/min/1.73m2 is based the CKD-EPI 2020 equation that does not use a race coefficient. Blood Venous blood specimen / Unknown Venipuncture / Unknown 10/26/2024 9:19 AM EDT 10/26/2024 9:23 AM EDT us Yuriy Lockett MD LAB BLOOD ORDERABLES Final Resul t Performing Organization Address City/[facility] Co de Phone Number [facility] [address] [place] [address] * (ABNORMAL) Hemoglobin and Hematocrit, Blood (10/25/2024 12:23 PM EDT) Only the most recent of11 resultswithin the time period is included. HGB 8.1(L) 11.2 - 15.7 g/dL LAB HEMATOLOGY METHOD 10/25/2024 12:30 PM EDT [facility] HCT 25.4(L) 34.0 - 45.0 % LAB HEMATOLOGY METHOD 10/25/2024 12:30 PM EDT [facility] Blood Venous blood specimen / Unknown Venipuncture / Unknown 10/25/2024 12:23 PM EDT 10/25/2024 12:27 PM EDT us Yuriy Lockett MD LAB BLOOD ORDERABLES Final Resul t Performing Organization Address City/[facility]/ZIP Co de Phone Number [facility] [address] [place] [address] * (ABNORMAL) Potassium (10/23/2024 10:26 AM EDT) Only the most recent of3 resultswithin the time period is included. Potassium, Plasma 5.2(H) 3.6 - 4.9 mmol/L 10/23/2024 10:53 AM EDT [facility] Blood Venous blood specimen / Unknown Venipuncture / Unknown 10/23/2024 10:26 AM EDT 10/23/2024 10:33 AM EDT Yuriy Lockett MD LAB BLOOD ORDERABLES Final Resul t Performing Organization Address [facility] de Phone Number [facility] [address] [place] [address] * ECG Adult (10/23/2024 8:22 AM EDT) Only the most recent of4 resultswithin the time period is included. EKG DIAGNOSIS CLASS Abnormal MUSE ECG Ventricular Rate 85 BPM MUSE ECG QRSD Interval 94 ms MUSE ECG QT Interval 378 ms MUSE ECG QTC Interval 449 ms MUSE ECG R [place] 23 degrees MUSE ECG T Wave [place] 124 degrees MUSE ECG Diagnosis Atrial fibrillation with frequent ventricular-pac ed complexes MUSE ECG Diagnosis Nonspecific ST and T wave abnormality MUSE ECG Diagnosis MUSE ECG Diagnosis MUSE ECG Diagnosis Confirmed by José Miguel Rincon ([id number]) on 10/28/2024 10:50:56 PM MUSE ECG 10/23/2024 8:22 AM EDT 10/28/2024 10:50 PM EDT Yuriy Lockett MD ECG ORDERABLES Final Result Performing Organization Address [facility] de Phone Number MUSE ECG * Transfuse [...] ORDERABLES F inal Result BLOOD BANK [address] [place] [address], * Antibody Identification (10/22/2024 7:04 PM EDT) Only the most recent of3 resultswithin the time period is included. Antibody ID Anti-E Non-specif ic Patricia 10/22/2024 8:04 PM EDT BLOOD BANK Blood Venous blood specimen / Unknown Venipuncture / Unknown 10/22/2024 7:04 PM EDT 10/22/2024 7:08 PM EDT Yuriy Lockett MD LAB BLOOD BANK TEST ORDERABLES F inal Result Performing Organization Address [facility] Co de Phone Number BLOOD BANK [address] [place] [address], * (ABNORMAL) Type and screen (10/22/2024 7:04 [...] ORDERABLES F inal Result Performing Organization Address City/[facility]/ZIP Co de Phone Number BLOOD BANK [address] [place] [address], [place] * Prepare Leukocyte Reduced RBC: 1 Units (10/22/2024 5:02 PM EDT) Only the most recent of3 resultswithin the time period is included. Product Code [id number] BLOO D BANK Dispense Status Transfused BLOOD BANK Blood Expiration Date [id number] BLOOD BANK Unit Number [id number] B LOOD BANK Product Blood Type 5100 BLOOD BANK Blood Type O+ BLOOD BANK Crossmatch Compatible BLOOD BANK Other us Yuriy Lockett MD BLOOD BANK PRODUCT ORDERABLES Fi nal Result BLOOD BANK [address] [place] [address], * XR Knee Right 3 Views (10/18/2024 [...] 10/19/2024 8:09 AM Final report signed by Setwart Wiggins MD on 10/19/2024 8:14 AM Narrative [...] - 4.5 mg/dL 10/17/2024 1:43 AM EDT [facility] Blood Venous blood specimen / Unknown Venipuncture / Unknown 10/17/2024 1:04 AM EDT 10/17/2024 1:14 AM EDT us Aidan Harrison MD LAB BLOOD ORDERABLES Final Res ult [facility] [address] [place] [address] * (ABNORMAL) Comprehensive metabolic panel (10/17/2024 1:04 AM EDT) Only the most recent of4 resultswithin the time period is included. Glucose, Plasma 138(H) 74 - 99 mg/dL 10/17/2024 1:43 AM EDT [facility] BUN, Plasma 50(H) 8 - 23 mg/dL 10/17/2024 1:43 AM EDT [facility] Creatinine, Plasma 1.74(H) 0.60 - 1.10 mg/dL 10/17/2024 1:43 AM EDT [facility] BUN/Creatinine Ratio 29 10/17/2024 1:43 AM EDT [facility] Sodium, Plasma 141 136 - 145 mmol/L 10/17/2024 1:43 AM EDT [facility] Potassium, Plasma 4.0 3.6 - 4.9 mmol/L 10/17/2024 1:43 AM EDT [facility] Chloride, Plasma 114(H) 97 - 107 mmol/L 10/17/2024 1:43 AM EDT [facility] CO2, Plasma 16(L) 22 - 29 mmol/L 10/17/2024 1:43 AM EDT [facility] Anion Gap 11 6 - 16 mmol/L 10/17/2024 1:43 AM EDT [facility] Total Calcium, Plasma 8.2(L) 8.9 - 10.2 mg/dL 10/17/2024 1:43 AM EDT [facility] Total Protein 5.2(L) 6.3 - 7.9 g/dL 10/17/2024 1:43 AM EDT [facility] Albumin, Plasma 2.9(L) 3.5 - 5.2 g/dL 10/17/2024 1:43 AM EDT [facility] AST, Plasma 15 10 - 35 U/L 10/17/2024 1:43 AM EDT [facility] ALT, Plasma 5(L) 10 - 35 U/L 10/17/2024 1:43 AM EDT [facility] Alkaline Phosphatase, Plasma 85 46 - 142 U/L 10/17/2024 1:43 AM EDT [facility] Total Bilirubin, Plasma 0.2 0.2 - 1.1 mg/dL 10/17/2024 1:43 AM EDT [facility] eGFRcr 32.8 mL/min/1.7 3m*2 10/17/2024 1:43 AM EDT [facility] Comment:Reported eGFRcr in m L/min/1.73m2 is based the CKD-EPI 2020 equation that does not use a race coefficient. Blood Venous blood specimen / Unknown Venipuncture / Unknown 10/17/2024 1:04 AM EDT 10/17/2024 1:14 AM EDT us Aidan Harrison MD LAB BLOOD ORDERABLES Final Res ult [facility] [address] [place] [address] * [place] Modified Barium Swallow (10/16/2024 3:05 [...] sips by the cup or the teaspoon. Bonita consistency (IDDSI 2): There is no aspiration [...] sips by the cup or the teaspoon. Bonita consistency (IDDSI 2): There is no aspiration [...] Renin Activity (LC/MS/MS) (10/16/2024 8:11 AM EDT) [facility] PRA RESULT 2.11 0.25 - 5.82 ng/mL/h 10/20/2024 12:14 PM EDT [facility] [place] [place] ([facility]) Comment: This test was developed and its analytical performance characteristics have been determined by [facility]. It has not been cleared or approved by the FDA. This assay has been validated pursuant to the CLIA regulations and is used for clinical purposes. Blood Venous blood specimen / Unknown Venipuncture / Unknown 10/16/2024 8:11 AM EDT 10/16/2024 8:22 AM EDT Narrative [facility] ([facility] [place] [place] ([facility]) - 10/20/2024 12:14 PM EDT Performing Organization Information: Site ID: [id number] Name: [employer] Address: [address] [place] [id number] Director: Enedina Thao MD, PhD Aidan Harrison MD LAB BLOOD ORDERABLES Final Res ult [facility] ([facility] [place] [place]) ([facility]) [facility] [address] [address] * (ABNORMAL) ACTH (10/16/2024 8:11 AM EDT) Only the most recent of2 resultswithin the time period is included. [facility] ACTH 5.45(L) 7.2 - 63 pg/mL 10/16/2024 11:38 AM EDT [facility] Blood Venous blood specimen / Unknown Venipuncture / Unknown 10/16/2024 8:11 AM EDT 10/16/2024 8:42 AM EDT Aidan Harrison MD LAB BLOOD ORDERABLES Final Res ult [facility] [address] [place] [address] * Folate (10/16/2024 8:11 AM EDT) Folate, Serum 8.2 >4.6 ng/mL 10/16/2024 9:29 AM EDT [facility] Blood Venous blood specimen / Unknown Venipuncture / Unknown 10/16/2024 8:11 AM EDT 10/16/2024 8:34 AM EDT us Aidan Harrison MD LAB BLOOD ORDERABLES Final Res ult Performing Organization Address City/[facility]/ZIP Co de Phone Number [facility] [address] [place] [address] * Ferritin (10/16/2024 8:11 AM EDT) Ferritin, Serum 73 13 - 150 ng/mL 10/16/2024 9:29 AM EDT [facility] Blood Venous blood specimen / Unknown Venipuncture / Unknown 10/16/2024 8:11 AM EDT 10/16/2024 8:34 AM EDT us Aidan Harrison MD LAB BLOOD ORDERABLES Final Res ult Performing Organization Address [facility] [place] [address] * Vitamin B12 (10/16/2024 8:11 AM EDT) Vitamin B12, Serum 906 210 - 1,033 pg/mL 10/16/2024 9:29 AM EDT [facility] Blood Venous blood specimen / Unknown Venipuncture / Unknown 10/16/2024 8:11 AM EDT 10/16/2024 8:34 AM EDT us Aidan Harrison MD LAB BLOOD ORDERABLES Final Res ult Performing Organization Address City/[facility] [place] [address] * MO CRITICAL CARE, E/M 30-74 MINUTES (10/16/2024 6:41 [...] - 160 ug/dL 10/16/2024 7:15 AM EDT [facility] Transferrin, Plasma 159(L) 200 - 360 mg/dL 10/16/2024 7:15 AM EDT [facility] Total Iron Binding Capacity, Plasma 199(L) 240 - 450 ug/mL 10/16/2024 7:15 AM EDT [facility] Transferrin Saturation 11(L) 14 - 50 % 10/16/2024 7:15 AM EDT [facility] Blood Venous blood specimen / Unknown Venipuncture / Unknown 10/16/2024 12:09 AM EDT 10/16/2024 12:37 AM EDT us Aidan Harrison MD LAB BLOOD ORDERABLES Final Res ult [facility] [address] [place] [address] * CORTISOL, 60 (10/15/2024 1:29 PM EDT) Cortisol Time=60 36.10 Before 10am: 3.7 - 19.4. After 5pm: 2.9 - 17.3 ug/dL 10/15/2024 3:46 PM EDT [facility] Comment:Administer cosyntrop in and obtain serum cortisol a Blood Venous blood specimen / Unknown Venipuncture / Unknown 10/15/2024 1:29 PM EDT 10/15/2024 2:03 PM EDT us Aidan Harrison MD LAB BLOOD ORDERABLES Final Res ult Performing Organization Address City/[facility]/ZIP Co de Phone Number [facility] [address] [place] [address] * Cortisol, 30 (10/15/2024 12:55 PM EDT) Cortisol,Time=30 31.20 Before 10am: 3.7 - 19.4. After 5pm: 2.9 - 17.3 ug/dL 10/15/2024 2:42 PM EDT [facility] Comment:Administer cosyntrop in and obtain serum cortisol a Blood Venous blood specimen / Unknown Venipuncture / Unknown 10/15/2024 12:55 PM EDT 10/15/2024 1:21 PM EDT us Aidan Harrison MD LAB BLOOD ORDERABLES Final Res ult Performing Organization Address [facility] Co de Phone Number [facility] [address] [place] [address] * Aldosterone (10/15/2024 12:08 PM EDT) Aldosterone 23.0 4.0 - 31.0 ng/dL 10/16/2024 1:35 AM EDT [facility] Blood Venous blood specimen / Unknown Venipuncture / Unknown 10/15/2024 12:08 PM EDT 10/15/2024 2:08 PM EDT us Aidan Harrison MD LAB BLOOD ORDERABLES Final Res ult Performing Organization Address City/[facility]/ZIP Co de Phone Number [facility] [address] [place] [address] * Cortisol Baseline (10/15/2024 12:08 PM EDT) Cortisol (Baseline) 11.60 Before 10am: 3.7 - 19.4. After 5pm: 2.9 - 17.3 ug/dL 10/15/2024 2:07 PM EDT [facility] Comment:Administer cosyntrop in and obtain serum cortisol a Blood Venous blood specimen / Unknown Venipuncture / Unknown 10/15/2024 12:08 PM EDT 10/15/2024 12:14 PM EDT us Aidan Harrison MD LAB BLOOD ORDERABLES Final Res ult Performing Organization Address [facility]/ZIP Co de Phone Number [facility] [address] [place] [address] * Cortisol (10/15/2024 8:29 AM EDT) Cortisol 9.60 Before 10am: 3.7 - 19.4. After 5pm: 2.9 - 17.3 ug/dL 10/15/2024 9:29 AM EDT [facility] Comment:Testing performed on [facility] Research Nurse, standardized against HAL[employer] Reference Standard concentration values assigned by LC-MS/MS and verified by BCR 192 and BCR 193 certified reference materials. Blood Venous blood specimen / Unknown Venipuncture / Unknown 10/15/2024 8:29 AM EDT 10/15/2024 8:38 AM EDT us Aidan Harrison MD LAB REF LAB BLOOD AND FLUID OR D Final Result [facility] [address] [place] [address] * MO CRITICAL CARE, E/M 30-74 MINUTES (10/15/2024 6:49 [...] with the findings and plan as documented. iAdan Harrison MD IN CLINIC/BEDSIDE ORDERABLES F inal Result * (ABNORMAL) Procalcitonin (10/15/2024 3:23 AM EDT) Only the most recent of3 resultswithin the time period is included. Procalcitonin, Plasma 0.16(H) <0.09 ng/mL 10/15/2024 6:41 AM EDT [facility] Blood Arterial blood specimen / Unknown Arterial Puncture / Unknown 10/15/2024 3:23 AM EDT 10/15/2024 3:31 AM EDT Narrative [facility] - 10/15/2024 6:41 AM EDT Procalcitonin [...] predict 28 day mortality risk. Please consult [email or web address] for more information. Test performed at [facility]. us Aidan Harrison MD LAB BLOOD ORDERABLES Final Res ult [facility] [address] [place] [address] * (ABNORMAL) Comprehensive Urine Drug Screening, Qualitative Assay, >= 27 Drug Classes (53:04 PM EDT) Acetaminophen Negative Negative 10/16/2024 9:48 AM EDT [facility] Alprazolam Negative Negative 10/16/2024 9:48 AM EDT [facility] Amantadine Negative Negative 10/16/2024 9:48 AM EDT [facility] Amitriptyline Negative Negative 10/16/2024 9:48 AM EDT [facility] Amphetamine Negative Negative 10/16/2024 9:48 AM EDT [facility] Atenolol Negative Negative 10/16/2024 9:48 AM EDT [facility] Benzoylecgonine Negative Negative 9:48 AM EDT [facility] Bisoprolol Negative Negative 10/16/2024 9:48 AM EDT [facility] Bupropion Negative Negative 10/16/2024 9:48 AM EDT [facility] Butalbital Negative Negative 10/16/2024 9:48 AM EDT [facility] Carbamazepine Negative Negative 10/16/2024 9:48 AM EDT [facility] Carisoprodol Negative Negative 10/16/2024 9:48 AM EDT [facility] Chlorpheniramine Negative Negative 10/17/19 9:48 AM EDT [facility] Citalopram Negative Negative 10/16/2024 9:48 AM EDT [facility] Clindamycin Negative Negative 10/16/2024 9:48 AM EDT [facility] Clonidine Negative Negative 10/16/2024 9:48 AM EDT [facility] Clopidogrel / Ticlopidine Negative Negative 10/16/2024 9:48 AM EDT [facility] Cocaethylene Negative Negative 10/16/2024 9:48 AM EDT [facility] Cocaine Negative Negative 10/16/2024 9:48 AM EDT [facility] Codeine Negative Negative 10/16/2024 9:48 AM EDT [facility] Cyclobenzaprine Negative Negative 9:48 AM EDT [facility] Desvenlafaxine Negative Negative 10/16/2024 9:48 AM EDT [facility] Dextromethorphan Negative Negative 10/17/19 9:48 AM EDT [facility] Diazepam Negative Negative 10/16/2024 9:48 AM EDT [facility] Diltiazem Negative Negative 10/16/2024 9:48 AM EDT [facility] Diphenhydramine Negative Negative 9:48 AM EDT [facility] Doxepine Negative Negative 10/16/2024 9:48 AM EDT [facility] Doxylamine Negative Negative 10/16/2024 9:48 AM EDT [facility] EDDP-Methadone metabolite Negative Negative 10/16/2024 9:48 AM EDT [facility] Fentanyl Negative Negative 10/16/2024 9:48 AM EDT [facility] Fluconazole Negative Negative 10/16/2024 9:48 AM EDT [facility] Fluoxetine Negative Negative 10/16/2024 9:48 AM EDT [facility] Guaifenesin Negative Negative 10/16/2024 9:48 AM EDT [facility] Haloperidol Negative Negative 10/16/2024 9:48 AM EDT [facility] Heroin/6-JUVENCIO Negative Negative 10/16/2024 9:48 AM EDT [facility] Hydrocodone Negative Negative 10/16/2024 9:48 AM EDT [facility] Hydroxyzine / Cetirizine metabolite Negative Negative 10/16/2024 9:48 AM EDT [facility] Ibuprofen Negative Negative 10/16/2024 9:48 AM EDT [facility] Imipramine Negative Negative 10/16/2024 9:48 AM EDT [facility] Ketamine Negative Negative 10/16/2024 9:48 AM EDT [facility] Labetolol Negative Negative 10/16/2024 9:48 AM EDT [facility] Lamotrigine Negative Negative 10/16/2024 9:48 AM EDT [facility] Levetiracetam Negative Negative 10/16/2024 9:48 AM EDT [facility] Lidocaine Positive(A) Negative 10/16/2024 9:48 AM EDT [facility] MDA Negative Negative 10/16/2024 9:48 AM EDT [facility] MDMA Negative Negative 10/16/2024 9:48 AM EDT [facility] Memantine Negative Negative 10/16/2024 9:48 AM EDT [facility] Meperidine Negative Negative 10/16/2024 9:48 AM EDT [facility] Meprobamate Negative Negative 10/16/2024 9:48 AM EDT [facility] Metaxalone Negative Negative 10/16/2024 9:48 AM EDT [facility] Methamphetamine Negative Negative 9:48 AM EDT [facility] Methocarbamol Negative Negative 10/16/2024 9:48 AM EDT [facility] Methylecgonine Negative Negative 10/16/2024 9:48 AM EDT [facility] Metoclopramide Negative Negative 10/16/2024 9:48 AM EDT [facility] Metoprolol Negative Negative 10/16/2024 9:48 AM EDT [facility] Metronidazole Negative Negative 10/16/2024 9:48 AM EDT [facility] Midazolam Negative Negative 10/16/2024 9:48 AM EDT [facility] Midazolam Metabolite Negative Negative 10/16/2024 9:48 AM EDT [facility] Mirtazapine Negative Negative 10/16/2024 9:48 AM EDT [facility] Misc Test Result Positive(A) Negative 025 9:48 AM EDT [facility] Comment: Escitalopram Citalopram Trazodone Naproxen Negative Negative 10/16/2024 9:48 AM EDT [facility] Nefazodone Negative Negative 10/16/2024 9:48 AM EDT [facility] Norfentanyl Negative Negative 10/16/2024 9:48 AM EDT [facility] Nortriptyline Negative Negative 10/16/2024 9:48 AM EDT [facility] Ordanstron Negative Negative 10/16/2024 9:48 AM EDT [facility] Oxcarbazepine Negative Negative 10/16/2024 9:48 AM EDT [facility] Oxycodone Positive(A) Negative 10/16/2024 9:48 AM EDT [facility] Paroxethine Negative Negative 10/16/2024 9:48 AM EDT [facility] Phenobarbital Negative Negative 10/16/2024 9:48 AM EDT [facility] Phentermine Negative Negative 10/16/2024 9:48 AM EDT [facility] Phenytoin Negative Negative 10/16/2024 9:48 AM EDT [facility] Primidone Negative Negative 10/16/2024 9:48 AM EDT [facility] Promethazine Negative Negative 10/16/2024 9:48 AM EDT [facility] Propofol Negative Negative 10/16/2024 9:48 AM EDT [facility] Propranolol Negative Negative 10/16/2024 9:48 AM EDT [facility] Quetiapine Negative Negative 10/16/2024 9:48 AM EDT [facility] Quinine Negative Negative 10/16/2024 9:48 AM EDT [facility] Rantidine Negative Negative 10/16/2024 9:48 AM EDT [facility] Sertraline Negative Negative 10/16/2024 9:48 AM EDT [facility] Spironolactone Negative Negative 10/16/2024 9:48 AM EDT [facility] Tizanidine Negative Negative 10/16/2024 9:48 AM EDT [facility] Topiramate Negative Negative 10/16/2024 9:48 AM EDT [facility] Tramadol Negative Negative 10/16/2024 9:48 AM EDT [facility] Trazadone/ Trazadone metabolite Negative Negative 10/16/2024 9:48 AM EDT [facility] Trimethoprim Negative Negative 10/16/2024 9:48 AM EDT [facility] Valproic Acid Negative Negative 10/16/2024 9:48 AM EDT [facility] Venlafaxine Negative Negative 10/16/2024 9:48 AM EDT [facility] Verapamil Negative Negative 10/16/2024 9:48 AM EDT [facility] Zolpidem Negative Negative 10/16/2024 9:48 AM EDT [facility] Xylazine Negative Negative 10/16/2024 9:48 AM EDT [facility] Urine Urine specimen obtained by clean catch procedure / Unknown Non-blood Collection / Unknown 10/14/2024 3:04 PM EDT 10/14/2024 3:16 PM EDT Aidan Harrison MD LAB URINE ORDERABLES Final Res ult [facility] [address] [place] [address] * Vitamin B1, Whole Blood (10/14/2024 2:35 PM EDT) [facility] VITAMIN B1, WHOLE BLOOD 128 70 - 180 nmol/L 10/17/2024 1:55 PM EDT [facility] ([facility]) Blood Arterial blood specimen / Unknown Arterial Line / Unknown 10/14/2024 2:35 PM EDT 10/14/2024 2:50 PM EDT Narrative [facility] ([facility]) - 10/17/2024 1:55 PM EDT [...] developed and its performance characteristics determined by [facility]. It has not been cleared or approved by the [place] Food and Drug Administration. This test was performed in a CLIA certified laboratory and is intended for clinical purposes. Performed By: [facility] [address] [place] [id number] Sharepoint Designer Developer: Jasper Newsome MD, PhD CLIA Number: [id number] Aidan Harrison MD LAB BLOOD ORDERABLES Final Res ult Performing Organization Address City/[facility]/ZIP Co de Phone Number [facility] ([place] [employer] [facility] [address] [place] [address] * (ABNORMAL) Blood gas panel with oximetry, mixed venous (10/14/2024 2:31 PM EDT) [facility] Signature pH, Mixed Venous 7.27(L) 7.32 - 7.43 LAB HEMATOLOGY METHOD 10/14/2024 2:45 PM EDT [facility] pCO2, Mixed Venous 41 37 - 52 mmHg LAB HEMATOLOGY METHOD 10/14/2024 2:45 PM EDT [facility] pO2, Mixed Venous 34 25 - 40 mmHg LAB HEMATOLOGY METHOD 10/14/2024 2:45 PM EDT [facility] SO2, Measured, Mixed Venous 57(L) 65 - 80 % LAB HEMATOLOGY METHOD 10/14/2024 2:45 PM EDT [facility] Bicarbonate, Calculated, Mixed Venous 19(L) 22 - 26 mmol/L LAB HEMATOLOGY METHOD 10/14/2024 2:45 PM EDT [facility] Base Excess, Mixed Venous -7.6(L) -2.0 - 3.0 mmol/L LAB HEMATOLOGY METHOD 10/14/2024 2:45 PM EDT [facility] Hematocrit, Whole Blood 24.7(L) 34.0 - 45.0 % LAB HEMATOLOGY METHOD 10/14/2024 2:45 PM EDT [facility] Sodium, Whole Blood 144 136 - 145 mmol/L LAB HEMATOLOGY METHOD 10/14/2024 2:45 PM EDT [facility] Potassium, Whole Blood 3.6 3.6 - 4.9 mmol/L LAB HEMATOLOGY METHOD 10/14/2024 2:45 PM EDT [facility] Chloride, Whole Blood 113(H) 97 - 107 mmol/L LAB HEMATOLOGY METHOD 10/14/2024 2:45 PM EDT [facility] Ionized Calcium, Whole Blood 4.6 4.6 - 5.1 mg/dL LAB HEMATOLOGY METHOD 10/14/2024 2:45 PM EDT [facility] Glucose, Whole Blood 110(H) 74 - 99 mg/dL LAB HEMATOLOGY METHOD 10/14/2024 2:45 PM EDT [facility] Oxyhemoglobin, Mixed Venous, Whole Blood 56.2 40.0 - 70.0 % LAB HEMATOLOGY METHOD 10/14/2024 2:45 PM EDT [facility] Hemoglobin Reduced, Mixed Venous, Whole Blood 41.8 % LAB HEMATOLOGY METHOD 10/14/2024 2:45 PM EDT [facility] Total Hemoglobin, Mixed Venous, Whole Blood 8.1(L) 11.2 - 15.7 g/dL LAB HEMATOLOGY METHOD 10/14/2024 2:45 PM EDT [facility] Blood Mixed venous blood specimen / Unknown Venipuncture / Unknown 10/14/2024 2:31 PM EDT 10/14/2024 2:43 PM EDT Aidan Harrison MD LAB BLOOD ORDERABLES Final Res ult Performing Organization Address [facility] Co de Phone Number [facility] [address] [place] [address] * Treponema Pallidum (Syphilis) Antibodies with Reflex to RPR and RPR Titer (Those with NO known Syphilis) (10/14/2024 9:44 AM EDT) Pathologist [facility] Syphilis Antibody (IgG+IgM) Nonreactive Nonreactive 10/14/2024 11:42 AM EDT [facility] Comment:Nonreactive. No sero logic evidence of syphilis. No follow-up necessary unless clinically indicated (e.g., early syphilis). Blood Venous blood specimen / Unknown Venipuncture / Unknown 10/14/2024 9:44 AM EDT 10/14/2024 10:25 AM EDT us Aidan Harrison MD LAB BLOOD ORDERABLES Final Res ult Performing Organization Address City/[facility]/ZIP Co de Phone Number [facility] [address] [place] [address] * (ABNORMAL) T3 (10/14/2024 9:44 AM EDT) Pathologist [facility] T3, Serum 47(L) 87 - 187 ng/dL 10/14/2024 11:57 PM EDT [facility] Blood Venous blood specimen / Unknown Venipuncture / Unknown 10/14/2024 9:44 AM EDT 10/14/2024 10:25 AM EDT us Aidan Harrison MD LAB BLOOD ORDERABLES Final Res ult [facility] [address] [place] [address] * MO CRITICAL CARE, E/M 30-74 MINUTES (10/14/2024 8:59 [...] LAB HEMATOLOGY METHOD 10/14/2024 7:58 AM EDT [facility] pCO2, Arterial 35 35 - 48 mmHg LAB HEMATOLOGY METHOD 10/14/2024 7:58 AM EDT [facility] pO2, Arterial 75(L) >80 mmHg LAB HEMATOLOGY METHOD 10/14/2024 7:58 AM EDT [facility] SO2, Measured, Arterial 96 94 - 98 % LAB HEMATOLOGY METHOD 10/14/2024 7:58 AM EDT [facility] Base Excess, Arterial -7.8(L) -2.0 - 3.0 mmol/L LAB HEMATOLOGY METHOD 10/14/2024 7:58 AM EDT [facility] Bicarbonate, Calculated, Arterial 18(L) 22 - 26 mmol/L LAB HEMATOLOGY METHOD 10/14/2024 7:58 AM EDT [facility] Hematocrit, Whole Blood 24.5(L) 34.0 - 45.0 % LAB HEMATOLOGY METHOD 10/14/2024 7:58 AM EDT [facility] Sodium, Whole Blood 142 136 - 145 mmol/L LAB HEMATOLOGY METHOD 10/14/2024 7:58 AM EDT [facility] Potassium, Whole Blood 3.9 3.6 - 4.9 mmol/L LAB HEMATOLOGY METHOD 10/14/2024 7:58 AM EDT [facility] Chloride, Whole Blood 114(H) 97 - 107 mmol/L LAB HEMATOLOGY METHOD 10/14/2024 7:58 AM EDT [facility] Glucose, Whole Blood 100(H) 74 - 99 mg/dL LAB HEMATOLOGY METHOD 10/14/2024 7:58 AM EDT [facility] Ionized Calcium, Whole Blood 4.5(L) 4.6 - 5.1 mg/dL LAB HEMATOLOGY METHOD 10/14/2024 7:58 AM EDT [facility] Lactate, Arterial, Whole Blood 0.7 0.5 - 1.6 mmol/L LAB HEMATOLOGY METHOD 10/14/2024 7:58 AM EDT [facility] Blood Arterial blood specimen / Unknown Arterial Puncture / Unknown 10/14/2024 7:52 AM EDT 10/14/2024 7:55 AM EDT us Aidan Harrison MD LAB BLOOD ORDERABLES Final Res ult [facility] [address] [place] [address] * (ABNORMAL) BETA HYDROXYBUTYRIC ACID (10/14/2024 6:25 AM EDT) Beta-Hydroxybu tyric Acid, Plasma 1.36(H) <=0.27 mmol/L 10/14/2024 7:30 AM EDT [facility] Blood Venous blood specimen / Unknown Venipuncture / Unknown 10/14/2024 6:25 AM EDT 10/14/2024 6:33 AM EDT us Aidan Harrison MD LAB BLOOD ORDERABLES Final Res ult Performing Organization Address City/[facility]/ZIP Co de Phone Number [facility] [address] [place] [address] * TSH (10/14/2024 6:25 AM EDT) Thyroid Stimulating Hormone, Plasma 2.89 0.40 - 4.20 uIU/mL 10/14/2024 2:24 PM EDT [facility] Blood Venous blood specimen / Unknown Venipuncture / Unknown 10/14/2024 6:25 AM EDT 10/14/2024 6:33 AM EDT Aidan Harrison MD LAB BLOOD ORDERABLES Final Res ult Performing Organization Address [facility] [place] [address] * T4, free (10/14/2024 6:25 AM EDT) Free T4, Plasma 1.6 0.8 - 1.7 ng/dL 10/14/2024 2:24 PM EDT [facility] Blood Venous blood specimen / Unknown Venipuncture / Unknown 10/14/2024 6:25 AM EDT 10/14/2024 6:33 AM EDT Aidan Harrison MD LAB BLOOD ORDERABLES Final Res ult Performing Organization Address City/[facility]/ZIP Co de Phone Number [facility] [address] [place] [address] * Ionized calcium, serum (10/14/2024 12:22 AM EDT) Ionized Calcium, Serum 4.8 4.6 - 5.3 mg/dL LAB HEMATOLOGY METHOD 10/14/2024 12:56 AM EDT [facility] Blood Venous blood specimen / Unknown Venipuncture / Unknown 10/14/2024 12:22 AM EDT 10/14/2024 12:34 AM EDT Kasey Win MD LAB BLOOD ORDERABLES Final Res ult [facility] [address] [place] [address] * XR Hand Right 3+ Views (10/13/2024 [...] MD on 10/14/2024 7:56 AM Dariela Potter FILM HISTORIAN IMG XR PROCEDURES Final Re sult * [...] 38(H) <14 ng/L 10/13/2024 10:18 AM EDT [facility] Troponin Delta 2 <10 ng/L 10/13/2024 10:18 AM EDT [facility] Troponin Delta Interpretation Not Significant 10/13/2024 10:18 AM EDT [facility] Comment:Not Significant. No acute change in troponin observed between the baseline and 2 hour samples. Blood Arterial blood specimen / Unknown Arterial Line / Unknown 10/13/2024 9:40 AM EDT 10/13/2024 9:50 AM EDT us Cat Jamison MD LAB BLOOD ORDERABLES Final Result [facility] [address] [place] [address] * MO INSERT NON-TUNNEL CV CATH, HC INSERT NON-TUNNEL [...] were discussed: yes Alternatives discussed: No treatment [place] protocol: Procedure explained and questions answered to [...] IN CLINIC/BEDSIDE ORDERABLES F inal Result * MO INSERT CATH,ART,PERCUT,SHORTTERM, HC INSERT CATH,ART,PERCUT,SHORTTERM (10/13/2024 9:09 AM EDT) Narrative Aidan Harrison MD - 10/13/2024 9:09 AM EDT Aidan Harrison MD 10/13/2024 3:36 PM Arterial line Performed by: Erickson Gr DO Authorized by: Aidan Harrison MD Consent: Consent obtained: Emergent situation Consent given by: Patient Risks, benefits, and alternatives were discussed: yes Risks discussed: Bleeding, infection, ischemia, repeat procedure and pain [place] protocol: Procedure explained and questions answered to [...] VTI 16.8 cm JESUS ISCV RV s' Damien 7.9 cm/s JESUS ISCV TAPSE 13 mm JESUS ISCV RV OLI 10.1 cm2 JESUS ISCV RV DOLORES 8.4 cm2 JESUS ISCV RV FAC_phl 17 % JESUS ISCV TR Max PG 24 mmHG JESUS [...] JESUS ISCV LV mean PG 1.3 mmHG JSEUS ISCV LV V1 mean 46.3 cm/sec JESUS [...] is no recent study available for direct [id number] comparison. Left Ventricle The left ventricle is [...] is no recent study available for direct [id number] comparison. Cat Jamison MD CV ECHO PROCEDURES Final R esult * Lactate, venous (10/13/2024 6:35 AM EDT) Lactate, Venous, Whole Blood 0.8 0.5 - 2.2 mmol/L LAB HEMATOLOGY METHOD 10/13/2024 6:40 AM EDT [facility] Blood Venous blood specimen / Unknown Venipuncture / Unknown 10/13/2024 6:35 AM EDT 10/13/2024 6:39 AM EDT Result [facility] Kasey Win MD LAB BLOOD ORDERABLES Final Res ult Performing Organization Address City/State/[facility] Co de Phone Number [facility] [address] [place] [address] * Blood Culture (Aerobic/Anaerobet Set) (10/13/2024 6:35 AM EDT) Culture No growth at day 5 LANA 10/18/2024 8:02 AM EDT [facility] Blood Venous blood specimen / Unknown Venipuncture / Unknown 10/13/2024 6:35 AM EDT 10/13/2024 7:18 AM EDT Kasey Win MD LAB MICROBIOLOGY - GENERAL ORD ERABLES Final Result Performing Organization Address City/State/[facility] de Phone Number [facility] [address] [place] [address] * Urine Rao Panel (10/13/2024 6:08 AM EDT) Extra Reflex urine culture not indicated 10/13/2024 8:02 AM EDT [facility] Urine Urine specimen obtained by clean catch procedure / Unknown Non-blood Collection / Unknown 10/13/2024 6:08 AM EDT 10/13/2024 6:33 AM EDT Kasey Win MD LAB URINE ORDERABLES Final Res ult Performing Organization Address [facility] de Phone Number [facility] [address] [place] [address] * Urinalysis Microscopic Examination (10/13/2024 6:08 AM EDT) Urine Urine specimen obtained by clean catch procedure / Unknown Non-blood Collection / Unknown 10/13/2024 6:08 AM EDT 10/13/2024 6:21 AM EDT Kasey Win MD LAB URINE ORDERABLES Final Res ult Performing Organization Address [facility] de Phone Number [facility] [address] [place] [address] * (ABNORMAL) Urinalysis with reflex microscopic (Culture NOT Included) (10/13/2024 6:08 AM EDT) Only the most recent of2 resultswithin the time period is included. Color, Urine Yellow LAB URINALYSIS - AUTOMATED METHOD 10/13/2024 7:07 AM EDT [facility] Clarity, Urine Clear LAB URINALYSIS - AUTOMATED METHOD 10/13/2024 7:07 AM EDT [facility] Spec [place], Urine 1.016 1.005 - 1.030 LAB URINALYSIS - AUTOMATED METHOD 10/13/2024 7:07 AM EDT [facility] pH, Urine 6.5 5.0 - 8.0 LAB URINALYSIS - AUTOMATED METHOD 10/13/2024 7:07 AM EDT [facility] Protein, Urine Trace(A) Negative mg/dL LAB URINALYSIS - AUTOMATED METHOD 10/13/2024 7:07 AM EDT [facility] Glucose, Urine Negative Negative mg/dL LAB URINALYSIS - AUTOMATED METHOD 10/13/2024 7:07 AM EDT [facility] Ketones, Urine Negative Negative mg/dL LAB URINALYSIS - AUTOMATED METHOD 10/13/2024 7:07 AM EDT [facility] Blood, Urine Negative Negative LAB URINALYSIS - AUTOMATED METHOD 10/13/2024 7:07 AM EDT [facility] Bilirubin, Urine Negative Negative LAB URINALYSIS - AUTOMATED METHOD 10/13/2024 7:07 AM EDT [facility] Urobilinogen, Urine 0.2 0.2 to 1.0 mg/dL LAB URINALYSIS - AUTOMATED METHOD 10/13/2024 7:07 AM EDT [facility] Leukocytes, Urine Small(A) Negative LAB URINALYSIS - AUTOMATED METHOD 10/13/2024 7:07 AM EDT [facility] Nitrite, Urine Negative Negative LAB URINALYSIS - AUTOMATED METHOD 10/13/2024 7:07 AM EDT [facility] RBC, Urine <1 0 to 3 /HPF LAB URINALYSIS - AUTOMATED METHOD 10/13/2024 7:07 AM EDT [facility] WBC, Urine 6 - 10(A) 0 to 5 /HPF LAB URINALYSIS - AUTOMATED METHOD 10/13/2024 7:07 AM EDT [facility] Squamous Epithelial Cells 0 - 2 0 to 5 /HPF LAB URINALYSIS - AUTOMATED METHOD 10/13/2024 7:07 AM EDT [facility] Hyaline Casts 0 - 2 0 to 5 /LPF LAB URINALYSIS - AUTOMATED METHOD 10/13/2024 7:07 AM EDT [facility] Bacteria, Urine Negative Negative LAB URINALYSIS - AUTOMATED METHOD 10/13/2024 7:07 AM T [facility] Urine Urine specimen obtained by clean catch procedure / Unknown Non-blood Collection / Unknown 10/13/2024 6:08 AM EDT 10/13/2024 6:21 AM EDT us Kasey Win MD LAB URINE ORDERABLES Final Res ult Performing Organization Address [facility]/ZIP Co de Phone Number [facility] [address] [place] [address] * Viv auris Surveillance by PCR (10/13/2024 6:05 AM EDT) Viv auris PCR Result Not Detected Not Detected 10/13/2024 12:18 PM EDT [facility] Swab (Axilla and Groin) Non-blood Collection / Unknown 10/13/2024 6:05 AM EDT 10/13/2024 6:31 AM EDT Narrative [facility] - 10/13/2024 12:18 PM EDT This PCR assay was developed and its performance characteristics determined by [facility] as appropriate for clinical purposes. This assay has not been cleared or approved by the FDA, but is performed in a CLIA regulated laboratory that is qualified to perform high-complexity testing. Kasey Win MD LAB MICROBIOLOGY - GENERAL ORD ERABLES Final Result Performing Organization Address [facility] Co de Phone Number [facility] [address] [place] [address] * (ABNORMAL) Multi Drug Resistance Test (10/13/2024 6:05 AM EDT) Pathologist [facility] Culture Klebsiella pneumoniae ESBL(AA) LANA 10/17/2024 11:07 AM EDT [facility] Comment: The organism value for this result has been updated. These results have been appended to the previously preliminary verified report. The organism value for this result has been updated. These results have been appended to the previously preliminary verified report. Swab (Nares and Rachel Rectal) Non-blood Collection / Unknown 10/13/2024 6:05 AM EDT 10/13/2024 6:31 AM EDT Narrative [facility] - 10/17/2024 11:07 AM EDT This test was developed and its performance characteristics determined by the [facility]. Although the media is FDA-approved, it is not FDA-approved for all specimen types submitted. The FDA has determined that such clearance or approval is not necessary. This test is used for surveillance purposes. It should not be regarded as investigational or for research. The [facility] is certified under the [...] MICROBIOLOGY - GENERAL ORD ERABLES Final Result [facility] [address] [place] [address] * Methicillin Resistant Staphylococcus aureus (MRSA) by PCR (10/13/2024 6:05 AM EDT) Methicillin Resistant Staphylococcus aureus (MRSA) by PCR Not Detected Not Detected 10/13/2024 9:07 AM EDT [facility] Swab Both anterior nares / Unknown Non-blood Collection / Unknown 10/13/2024 6:05 AM EDT 10/13/2024 7:18 AM EDT Narrative [facility] - 10/13/2024 9:07 AM EDT This [...] ORD ERABLES Final Result Performing Organization Address [facility]/[place] [address] * (ABNORMAL) Troponin T, High Sensitivity, 0 Hour Plasma, Reflex to 2 Hour (10/13/2024 5:18 AM EDT) Troponin T, High Sensitivity, 0 Hour 36(H) <14 ng/L 10/13/2024 6:21 AM EDT [facility] Blood Venous blood specimen / Unknown Venipuncture / Unknown 10/13/2024 5:18 AM EDT 10/13/2024 5:24 AM EDT Cat Jamison MD LAB BLOOD ORDERABLES Final Result Performing Organization Address [facility] [place] [address] * (ABNORMAL) N-Terminal Probnp (10/13/2024 5:18 AM EDT) N-Terminal, PROBNP, Plasma 1,081(H) 0 - 899 pg/mL 10/13/2024 6:21 AM EDT [facility] Blood Venous blood specimen / Unknown Venipuncture / Unknown 10/13/2024 5:18 AM EDT 10/13/2024 5:24 AM EDT us Kasey Win MD LAB BLOOD ORDERABLES Final Res ult Performing Organization Address City/[facility]/[place] [address] * CT Bony Pelvis (10/13/2024 3:57 AM [...] 6.6(H) <5.7 % 10/13/2024 12:54 PM EDT [facility] Blood Venous blood specimen / Unknown Venipuncture / Unknown 10/13/2024 3:44 AM EDT 10/13/2024 3:46 AM EDT Narrative [facility] - 10/13/2024 12:54 PM EDT HA1C Interpretive Data: Diagnosis of Diabetes: Diabetic > or = 6.5% Pre-diabetic 5.7 to 6.4% Non-diabetic < or = 5.6% Glycemic Targets for Type I and Type II Diabetics: Non- Adults <7.0% Adults <6.0% Children and Adolescents <7.5% Source: [place] [employer]. Standards of medical care in diabetes,2017. Diabetes Care.2017:40 (suppl 1):S1-S135. us Kasey Win MD LAB BLOOD ORDERABLES Final Res ult [facility] [address] [place] [address] * (ABNORMAL) Blood gas, venous (10/13/2024 3:44 AM EDT) pH, Venous 7.29(L) 7.32 - 7.43 LAB HEMATOLOGY METHOD 10/13/2024 3:55 AM EDT [facility] pCO2, Venous 37 37 - 52 mmHg LAB HEMATOLOGY METHOD 10/13/2024 3:55 AM EDT [facility] pO2, Venous 26 25 - 40 mmHg LAB HEMATOLOGY METHOD 10/13/2024 3:55 AM EDT [facility] SO2, Measured, Venous 44(L) 65 - 80 % LAB HEMATOLOGY METHOD 10/13/2024 3:55 AM EDT [facility] Base Excess, Venous -8.5(L) -2.0 - 3.0 mmol/L LAB HEMATOLOGY METHOD 10/13/2024 3:55 AM EDT [facility] Bicarbonate, Calculated, Venous 17(L) 22 - 26 mmol/L LAB HEMATOLOGY METHOD 10/13/2024 3:55 AM EDT [facility] Hematocrit, Whole Blood 29.1(L) 34.0 - 45.0 % LAB HEMATOLOGY METHOD 10/13/2024 3:55 AM EDT [facility] Sodium, Whole Blood 134(L) 136 - 145 mmol/L LAB HEMATOLOGY METHOD 10/13/2024 3:55 AM EDT [facility] Potassium, Whole Blood 4.3 3.6 - 4.9 mmol/L LAB HEMATOLOGY METHOD 10/13/2024 3:55 AM EDT [facility] Chloride, Whole Blood 107 97 - 107 mmol/L LAB HEMATOLOGY METHOD 10/13/2024 3:55 AM EDT [facility] Glucose, Whole Blood 112(H) 74 - 99 mg/dL LAB HEMATOLOGY METHOD 10/13/2024 3:55 AM EDT [facility] Lactate, Venous, Whole Blood 1.2 0.5 - 2.2 mmol/L LAB HEMATOLOGY METHOD 10/13/2024 3:55 AM EDT [facility] Ionized Calcium, Whole Blood 4.8 4.6 - 5.1 mg/dL LAB HEMATOLOGY METHOD 10/13/2024 3:55 AM EDT [facility] Blood Venous blood specimen / Unknown Venipuncture / Unknown 10/13/2024 3:44 AM EDT 10/13/2024 3:53 AM EDT us Derik Renae MD LAB BLOOD ORDERABLES Final Resu lt Performing Organization Address City/State/[facility] Co de Phone Number [facility] [address] [place] [address] * Drug Abuse Screen, Urine (10/12/2024 11:56 PM EDT) Amphetamine Screen Urine Negative Cutoff: 500 ng/mL 10/13/2024 12:45 AM EDT [facility] Benzodiazepines Screen Urine Negative Cutoff: 200 ng/mL 10/13/2024 12:45 AM EDT [facility] Cannabinoid Screen Urine Negative Cutoff: 50 ng/mL 10/13/2024 12:45 AM EDT [facility] Cocaine Screen Urine Negative Cutoff: 300 ng/mL 10/13/2024 12:45 AM EDT [facility] Barbiturate Screen Urine Negative Cutoff: 200 ng/mL 10/13/2024 12:45 AM EDT [facility] Opiate Screen Urine Negative Cutoff: 300 ng/mL 10/13/2024 12:45 AM EDT [facility] Methadone Screen Urine Negative Cutoff: 300 ng/mL 10/13/2024 12:45 AM EDT [facility] Buprenorphine Screen Urine Negative Cutoff: 10 ng/mL 10/13/2024 12:45 AM EDT [facility] Fentanyl Screen Urine Negative Cutoff: 1 ng/mL 10/13/2024 12:45 AM EDT [facility] Oxycodone Screen Urine Negative Cutoff: 100 ng/mL 10/13/2024 12:45 AM EDT [facility] Urine Urine specimen obtained by clean catch procedure / Unknown Non-blood Collection / Unknown 10/12/2024 11:56 PM EDT 10/13/2024 12:13 AM EDT us Cat Jamison MD LAB URINE ORDERABLES Final Result Performing Organization Address City/State/[facility] Co de Phone Number [facility] [address] [place] [address] * (ABNORMAL) Anti Xa Level Low Molecular Weight (10/12/2024 11:56 PM EDT) Anti Xa Level Low Molecular Weight Heparin >2.00(HH) <2.00 IU/mL 10/13/2024 1:02 AM EDT [facility] Blood Venous blood specimen / Unknown Venipuncture / Unknown 10/12/2024 11:56 PM EDT 10/13/2024 12:01 AM EDT Narrative [facility] - 10/13/2024 1:02 AM EDT Therapeutic Range: LMWH enoxaparin 1mg/kg/dose, 12hrs - peak (3-5 hours after dose): 0.5 - 1.0 IU/mL LMWH enoxaparin 1.5mg/kg/dose, 24hrs - peak (3-5 hours after dose): 1.0 - 2.0 IU/mL LMWH enoxaparin prophylaxis: Not established us Derik Renae MD LAB BLOOD ORDERABLES Final Resu lt Performing Organization Address [facility] Co de Phone Number [facility] [address] [place] [address] * Red Blood Cell Antibody with Antigen Notification (10/12/2024 11:55 PM EDT) Notification, Gabriela Blood Cell Antibody with Antigen During your recent admission to the [facility], laboratory testing performed in the blood [...] do not hesitate to call me at [phone]. No defined reference value 10/14/2024 4:24 PM EDT BLOOD BANK Pathologist Signature, Red Blood Cell Antibody with Antigen Reviewed by: Srikanth Watson MD 10/14/2024 4:24 PM EDT BLOOD BANK Blood Venous blood specimen / Unknown Venipuncture / Unknown 10/12/2024 11:55 PM EDT 10/13/2024 12:04 AM EDT Aidan Harrison MD LAB BLOOD BANK TEST ORDERABLES Final Result Performing Organization Address [facility] Co de Phone Number BLOOD BANK [address] [place] [address], * ED HIV 1/2 Antibody/Antigen Screen w/Reflex to HIV 1/2 Differentiation (10/12/2024 11:55 PM EDT) [facility] HIV 1 & 2 Antibody/Antigen Screen Non Reactive Non Reactive 10/13/2024 12:58 AM EDT [facility] Comment:Screening for HIV 1 & 2 antibodies, and P24 antigen is NONREACTIVE. No confirmatory testing is required. Blood Venous blood specimen / Unknown Venipuncture / Unknown 10/12/2024 11:55 PM EDT 10/13/2024 12:12 AM EDT Cat Jamison MD LAB BLOOD ORDERABLES Final Result Performing Organization Address [facility] Co de Phone Number [facility] [address] [place] [address] * (ABNORMAL) Trauma shock panel blood gas (10/12/2024 11:55 PM EDT) Pathologist [facility] pH, Venous 7.23(LL) 7.32 - 7.43 LAB HEMATOLOGY METHOD 10/13/2024 12:06 AM EDT [facility] Bicarbonate, Calculated, Venous 17(L) 22 - 26 mmol/L LAB HEMATOLOGY METHOD 10/13/2024 12:06 AM EDT [facility] Base Excess, Venous -10.0(L) -2.0 - 3.0 mmol/L LAB HEMATOLOGY METHOD 10/13/2024 12:06 AM EDT [facility] Lactate, Venous, Whole Blood 1.8 0.5 - 2.2 mmol/L LAB HEMATOLOGY METHOD 10/13/2024 12:06 AM EDT [facility] Blood Venous blood specimen / Unknown Venipuncture / Unknown 10/12/2024 11:55 PM EDT 10/13/2024 12:02 AM EDT us Cat Jamison MD LAB BLOOD ORDERABLES Final Result [facility] [address] [place] [address] * Ethyl Alcohol Plasma (10/12/2024 11:55 PM EDT) Pathologist [facility] Ethanol Plasma <10 <10 mg/dL 10/13/2024 12:55 AM EDT [facility] Blood Venous blood specimen / Unknown Venipuncture / Unknown 10/12/2024 11:55 PM EDT 10/13/2024 12:12 AM EDT Narrative [facility] - 10/13/2024 12:55 AM EDT Enzymatic Assay: Performed on Ngh[employer] Nicole. us Cat Jamison MD LAB BLOOD ORDERABLES Final Result [facility] [address] [place] [address] * Hepatitis C Antibody - ED (10/12/2024 11:55 PM EDT) [facility] Hepatitis C Antibody Negative Negative 10/13/2024 12:58 AM EDT [facility] Blood Venous blood specimen / Unknown Venipuncture / Unknown 10/12/2024 11:55 PM EDT 10/13/2024 12:12 AM EDT us Cat Jamison MD LAB BLOOD ORDERABLES Final Result Performing Organization Address City/[facility]/ZIP Co de Phone Number [facility] [address] [place] [address] * (ABNORMAL) TEG Global Hemostasis with Lysis (10/12/2024 11:55 PM EDT) R, Lysis 9.3(H) 4.6 - 9.1 min 10/13/2024 1:21 AM EDT [facility] MA, Rapid, Lysis 69.9 52.0 - 70.0 mm 10/13/2024 1:21 AM EDT [facility] JONAH, Fibrinogen, Lysis 32.5(H) 15.0 - 32.0 mm 10/13/2024 1:21 AM EDT [facility] LY30 0.8 0.0 - 2.6 % 10/13/2024 1:21 AM EDT [facility] Blood Venous blood specimen / Unknown Venipuncture / Unknown 10/12/2024 11:55 PM EDT 10/13/2024 12:17 AM EDT Cat Jamison MD LAB BLOOD ORDERABLES Final Result Performing Organization Address City/[facility]/ZIP Co de Phone Number [facility] [address] [place] [address] * (ABNORMAL) APTT (PTT) (10/12/2024 11:55 PM EDT) aPTT 36(H) 25 - 35 sec 10/13/2024 12:15 AM EDT [facility] Blood Venous blood specimen / Unknown Venipuncture / Unknown 10/12/2024 11:55 PM EDT 10/13/2024 12:01 AM EDT Cat Jamison MD LAB BLOOD ORDERABLES Final Result Performing Organization Address City/[facility]/ZIP Co de Phone Number [facility] [address] [place] [address] * (ABNORMAL) PT-INR (10/12/2024 11:55 PM EDT) Prothrombin Time 20.2(H) 12.0 - 14.3 sec 10/13/2024 12:14 AM EDT [facility] INR 1.7(H) 0.9 - 1.1 10/13/2024 12:14 AM EDT [facility] Blood Venous blood specimen / Unknown Venipuncture / Unknown 10/12/2024 11:55 PM EDT 10/13/2024 12:01 AM EDT Narrative [facility] - 10/13/2024 12:14 AM EDT OPTIMAL INR RANGES FOR PATIENT ON ORAL ANTICOAGULANT THERAPY Prevention of venous thromboembolism INR 2.0 to 3.0 In patients with heart disease: Atrial fibrillation INR 2.0 to 3.0 Valvular heart disease INR 2.0 to 3.0 Tissue heart valves INR 2.0 to 3.0 Mechanical prosthetic valves INR 2.5 to 3.5 Prevention of recurrent [place] INR 2.5 to 3.5 us Cat Jamison MD LAB BLOOD ORDERABLES Final Result Performing Organization Address [facility]/ZIP Co de Phone Number [facility] [address] [place] [address] * Test Qualitative Plasma (10/12/2024 11:55 PM EDT) Test Negative Negative 10/13/2024 1:02 AM EDT [facility] Blood Venous blood specimen / Unknown Venipuncture / Unknown 10/12/2024 11:55 PM EDT 10/13/2024 12:12 AM EDT Narrative [facility] - 10/13/2024 1:02 AM EDT Reference Range: Males and non- females: Negative. us Cat Jamison MD LAB BLOOD ORDERABLES Final Result Performing Organization Address [facility] [place] [address] * CT OUTSIDE IMAGES (10/12/2024 8:15 PM [...] Documents on File Type Date Recorded Patient Contract Management Specialist Expl anation Advance Directives and Livin g Will 10/14/2024 4:42 PM Advance Directives and Livin g Will 10/13/2024 6:35 AM * Full Code (Latest Code Status on File) Date Activated Date Inactivated Comments 10/13/2024 5:26 AM 10/30/2024 7:10 PM Question Answer Comments I have reviewed the capacity from the link above and, if needed, have updated to appropriate status: Yes Care Teams Antique Collector Relationship Specialty Start Date End Date Cosme Davis MD [address] [place] [address] [place] [address] PCP - General 06/24/20
--- OUTSIDE RECORDS SUMMARY | 2024-11-17 13:21 | XMS_ITS | Encounter Summary ---
Author Organization [employer] ([place], [place], [place], [place]) Address [address] [place] [address] Care Team Providers Care Prosthetic Dentist Name Role Phone Unavailable Primary Care Provider Unavailabl e Encounter Details Date Type Department Care Team (Late st Contact Info) Description 03/23/2018 Transcribed Document [facility] Family Medicine [address] [place] [address] ProviderZion MD [address], [place] [id number] Social History Tobacco Use Types Packs/Day Years Used Date Smoking Tobacco: Never Assessed Comments Unknown Sex and Gender Information Value Date Recorded Sex Assigned at Not on file Legal Sex Female 4:39 PM CDT Gender Identity Not on file Sexual Orientation Not on file documented as of this encounter Miscellaneous Notes * Cerner Conversion Note - Zion ProviderMD - 03/23/2018 7:32 PM CALL CENTER TRAINER DATE OF ADMISSION: 03/23/2018 PRIMARY CARE PHYSICIAN: [...] has been evaluated there and transferred to [facility]. Patient was at [facility], came in, laying in bed, mild distress, [...]
--- OUTSIDE RECORDS SUMMARY | 2024-11-17 13:21 | XMS_ITS | Encounter Summary ---
Author Organization [employer] ([place], [place], [place], [place]) Address [address] [place] [address] Care Team Providers Care Mathematics Academic Chair Name Role Phone Unavailable Primary Care Provider Unavailabl e Encounter Details Date Type Department Care Team (Late st Contact Info) Description 03/23/2018 Transcribed Document [facility] Family Medicine [address] [place] [address] ProviderZion MD [address] [place] [address] Social History Tobacco Use [...] - Historical ProviderMD - 03/23/2018 5:54 PM FIBERGLASS CONTAINER WINDING OPERATOR Care Management Assessment/Plan Entered On: 03/26/2018 [...] yr old W F transferred here from [facility] w/ bradycardia, positive blood cultures/strep B [...] [facility], claims she is indep w/ all activities. D/C plan pending outcome of possible pacer removal, may well be good [facility] candidate. She denies any needs now, CM will cont to follow. DEEPA GALDAMEZ, Digital Marketing Consultant - 03/26/2018 17:36 EST documented in this encounter Plan of Treatment Not on file documented as of this encounter Visit Diagnoses Not on filedocumented in this encounter
--- OUTSIDE RECORDS SUMMARY | 2024-11-17 13:21 | XMS_ITS | Encounter Summary ---
Author Organization [employer] ([place], [place], [place], [place]) Address [address] [place] [address] Care Team Providers Care Cigar Making Supervisor Name Role Phone Unavailable Primary Care Provider Unavailabl e Encounter Details Date Type Department Care Team (Late st Contact Info) Description 05/07/2018 Transcribed Document [facility] [place] [address] [place] [address] ProviderZion MD [address] [place] [address] Social History Tobacco Use Types [...]
--- OUTSIDE RECORDS SUMMARY | 2024-11-17 13:21 | XMS_ITS | Encounter Summary ---
Author Organization [employer] ([place], [place], [place], [place]) Address [address] [place] [address] Care Team Providers Care Morale Officer Name Role Phone Unavailable Primary Care Provider Unavailabl e Encounter Details Date Type Department Care Team (Late st Contact Info) Description 03/23/2018 Transcribed Document [facility] Family Medicine [address] [place] [address] ProviderZion MD [address] [place] [address] Social History Tobacco Use Types [...] - Historical ProviderMD - 03/23/2018 5:16 PM BUSINESS STRATEGIST Event Note Entered On: 03/23/2018 17:17 EST Performed On: 03/23/2018 17:16 EST by Demetri Arrington, Rn Event Note Event Date/Time : 03/23/2018 17:16 EST Description of Event : patient to rm # [id number] Kristen Nelson notified Demetri Arrington, Rn - 03/23/2018 17:16 EST Electronically signed by Jorge Alberto [facility] Conversion Lpn Medical Assistant Cerner at 05/29/2022 8:41 PM CDT documented in this encounter Plan of Treatment Not on file documented as of this encounter Visit Diagnoses Not on filedocumented in this encounter
--- OUTSIDE RECORDS SUMMARY | 2024-11-17 13:21 | XMS_ITS | Encounter Summary ---
Author Organization [employer] ([place], [place], [place], [place]) Address [address] [place] [address] Care Team Providers Care Stone Polisher Machine Name Role Phone Unavailable Primary Care Provider Unavailabl e Encounter Details Date Type Department Care Team (Late st Contact Info) Description 05/07/2018 Transcribed Document [facility] [place] [address] [place] [address] ProviderZion MD [address] [id number] Social History Tobacco Use Types Packs/Day Years [...] 16:09 EDT Electronically signed by Jorge Alberto [facility] Conversion Spark Plug Assembler Cerner at 05/29/2022 8:32 PM CDT documented in this encounter Plan of Treatment Not on file documented as of this encounter Visit Diagnoses Not on filedocumented in this encounter
--- OUTSIDE RECORDS SUMMARY | 2024-11-17 13:21 | XMS_ITS | Encounter Summary ---
Author Organization [employer] ([place], [place], [place], [place]) Address [address] [place] [address] Care Team Providers Care Cardiology Technologist Name Role Phone Unavailable Primary Care Provider Unavailabl e Encounter Details Date Type Department Care Team (Late st Contact Info) Description 03/29/2018 Transcribed Document [facility] Family Medicine [address] [place] [address] ProviderZion MD [address] [place], [...] - Zion ProviderMD - 03/29/2018 3:54 PM COFFEE MAKER SERVICER Patient Education Materials Follows:Disease Endocarditis Endocarditis is [...] these instructions at home: Medicines ??? Take [id number] and prescription medicines only as told by [...] 01/28/2006 Document Revised: 11/09/2016 Document Reviewed: 11/09/2016 [employer] Patient Education ? 2017 [employer] documented in this encounter Plan of Treatment Not on file documented as of this encounter Visit Diagnoses Not on filedocumented in this encounter
--- OUTSIDE RECORDS SUMMARY | 2024-11-17 13:21 | XMS_ITS | Encounter Summary ---
Author Organization [employer] ([place], [place], [place], [place]) Address [address] [place] [address] Care Team Providers Care Hris Administrator Name Role Phone Unavailable Primary Care Provider Unavailabl e Encounter Details Date Type Department Care Team (Late st Contact Info) Description 05/07/2018 Transcribed Document [facility] [place] Family Medicine [address] [place] [address] ProviderZion MD [address] [place] [address] Social History Tobacco Use [...] Source : Stated Height Entry Format : [place] Height, Feet : 5 ft(Converted to: 152 cm, 60 Inch) Height, Inches : 1 Inch(Converted to: 0 ft 1 Inch, 2.54 cm) Clinical Height : 154.94 cm Weight Source : Standing scale Weight Entry Format : [place] Clinical Dosing Weight : 74.09 kg Weight, Pounds : 163 lb Body Surface Area (BSA) : 1.73 m2 Body Mass Index : 30.9 kg/m2 (HI) [place] Body Weight : 47 kg GAYLA CASE [...] : daughter Emergency Contact #1 Relationship : [phone] Emergency Contact #2 : . Emergency Contact #2 Phone Number : . Emergency Contact #2 Relationship : . Primary Language : Chadian Preferred Communication Mode : Verbal Communication Barrier [...] Scale Risk Level : 25-45 Medium Risk [place] Fall Interventions : Adequate lighting, Assistive devices within reach, Personal items within reach, Reinforced to call for assistance before getting out of bed GAYLA CASE RN - 05/07/2018 11:33 EDT Valuables and Belongings Valuables and Belongings : Clothing Clothing : Common streetwear Clothing Disposition : Bedside, With family EVIE, AGYLA Méndez RN - 05/07/2018 11:33 EDT documented in this encounter Plan of Treatment Not on file documented as of this encounter Visit Diagnoses Not on filedocumented in this encounter
--- OUTSIDE RECORDS SUMMARY | 2024-11-17 13:21 | XMS_ITS | Encounter Summary ---
Author Organization [employer] ([place], [place], [place], [place]) Address [address] [place] [address] Care Team Providers Care Bull Wheel Worker Name Role Phone Unavailable Primary Care Provider Unavailabl e Encounter Details Date Type Department Care Team (Late st Contact Info) Description 03/29/2018 Transcribed Document [facility] Radiology [address] [place] [address] Dodie Tirado MD [address] [place] [address] Social History Tobacco Use Types Packs/Day [...] Rocephin: 2 Gram, 100 mL/Hr, IV Piggyback, [id number] Tylenol: 650 mg, Oral, Q4H, PRN: Other [...] 0 Refill(s) Rocephin: 2 Gram, IV Piggyback, [id number], 0 Refill(s) carvedilol 3.125 mg oral tablet: [...] At Bedtime Rocephin 2 Gram, IV Piggyback, [id number] , Medications (26) Active Scheduled: (14) aspirin EC 81 mg tab 81 mg 1 Tab, Oral, Daily carvedilol 3.125 mg tab 3.125 mg 1 Tab, Oral, Daily cefTRIAXone 2 Gram, IV Piggyback, [id number] citalopram 20 mg tab 20 mg 1 [...] - Coronary artery disease / SNOMED CT 8111883920 / Confirmed Cardiomyopathy / SNOMED CT 468429664 / Confirmed HLD - Hyperlipidemia / SNOMED CT 085203740 / Confirmed HTN - Hypertension / SNOMED CT 3611007500 / Confirmed, Active Problems (14) Anxiety Atrial [...] to rehab when bed available. Discussed with correctional case manager. documented in this encounter Plan of Treatment Not on file documented as of this encounter Visit Diagnoses Not on filedocumented in this encounter
--- OUTSIDE RECORDS SUMMARY | 2024-11-17 13:21 | XMS_ITS | Encounter Summary ---
Author Organization [employer] ([place], [place], [place], [place]) Address [address] [place] [address] Care Team Providers Care Seo Assistant Name Role Phone Unavailable Primary Care Provider Unavailabl e Encounter Details Date Type Department Care Team (Late st Contact Info) Description 03/23/2018 Transcribed Document [facility] [place] [address] [place] [address] ProviderZion MD [address] [place] [address] Social History Tobacco Use Types [...] - Historical ProviderMD - 03/23/2018 5:28 PM LOGGER Admission History, Adult Entered On: 03/23/2018 17:38 [...] #2 Relationship : sister Primary Language : Bolivian Preferred Communication Mode : Verbal Communication Barrier [...] Scale Risk Level : 25-45 Medium Risk Nakina Fall Interventions : Adequate lighting, Assistive devices [...] Source : Stated Height Entry Format : [place] Height, Feet : 5 ft(Converted to: 152 [...] Body Mass Index : 31.4 kg/m2 (HI) [place] Body Weight : 47 kg Demetri Arrington [...] 03/23/2018 17:28 EST Electronically signed by Interface, [facility] Conversion Board Stacker Cerner at 05/29/2022 8:46 PM CDT documented in this encounter Plan of Treatment Not on file documented as of this encounter Visit Diagnoses Not on filedocumented in this encounter
--- OUTSIDE RECORDS SUMMARY | 2024-11-17 13:21 | XMS_ITS | Encounter Summary ---
Author Organization [employer] ([place], [place], [place], [place]) Address [address] [place] [address] Care Team Providers Care Grief Counsellor Name Role Phone Unavailable Primary Care Provider Unavailabl e Encounter Details Date Type Department Care Team (Late st Contact Info) Description 03/23/2018 Transcribed Document [facility] [place] [address] [place] [address] ProviderZion MD [address] [place], [place] [id number] Social History Tobacco Use Types Packs/Day Years Used Date Smoking Tobacco: Never Assessed Comments Unknown Sex and Gender Information Value Date Recorded Sex Assigned at Not on file Legal Sex Female 4:39 PM CDT Gender Identity Not on file Sexual Orientation Not on file documented as of this encounter Miscellaneous Notes * Cerner Conversion Note - Zion ProviderMD - 03/23/2018 6:37 PM SOCIAL SCIENCES PROFESSOR Patient: ETHAN CRONIN Age: 57 years Sex: Female : 1960 Associated Diagnoses: None Author: Anastacia Roth, Pharm.D.-Resident HPI: 57 year old female transferred from [facility] due to bradycardia during infusion. Pt has hx of CAD, CABG/pacemaker 3 years ago, DM, HTN, and IA. Pt also has hx of bacteremia and [...] continue to follow Anastacia Roth PharmD PGY-1 Pipe Or Steam Fitter Furnace Installer [phone] documented in this encounter Plan of Treatment Not on file documented as of this encounter Visit Diagnoses Not on filedocumented in this encounter
--- OUTSIDE RECORDS SUMMARY | 2024-11-17 13:21 | XMS_ITS | Encounter Summary ---
Author Organization [employer] ([place], [place], [place], [place]) Address [address] [place] [address] Care Team Providers Care Kst Operator Name Role Phone Unavailable Primary Care Provider Unavailabl e Encounter Details Date Type Department Care Team (Late st Contact Info) Description 03/29/2018 Transcribed Document [facility] Family Medicine [address] [place] [address] ProviderZion MD [address] [place], [place] [id number] Social History Tobacco Use Types Packs/Day Years Used Date Smoking Tobacco: Never Assessed Comments Unknown Sex and Gender Information Value Date Recorded Sex Assigned at Not on file Legal Sex Female 4:39 PM CDT Gender Identity Not on file Sexual Orientation Not on file documented as of this encounter Miscellaneous Notes * Cerner Conversion Note - Historical ProviderMD - 03/29/2018 1:20 PM ROD PLACER Care Management Assessment/Plan Entered On: 03/29/2018 13:22 EST Performed On: 03/29/2018 13:20 EST by Odalys Bush Rn-Emissions InspectorTown Justice Note Anticipated Discharge Date : 03/30/2018 14:00 EST Care Management Note : Confirmed with [facility] that patient can transfer today [phone]; [phone]. Spoke with patient's daughter Jazmine [phone] to [address] Dr[address] Hamilton advised and dishcarge pharmacy aware. Patient should be ready to transport by 15:00. Care Management Note Report : Ninoska Cuellar, Rn-Emissions Inspector Ed - 03/28/18 20:23:22 CM faxed orders to [facility] for IV abx f [phone] per orders. CM will need to call [facility] to notify them of final d/c plan per MD orders p [phone]. CM to follow for ongoing d/c planning/needs. Ninoska Cuellar, Rn-Emissions Inspector Ed - 03/28/18 18:12:15 CM recieved call from Gama at [facility] stating they can take pt at their facility, but not until Saturday, as [facility]. CM then spoke with Edie from [facility] and she again confirms they can accept pt at their facility tomorrow. CM updated pt and now pt is agreeable to go to [facility]. She also gave CM permission to speak with Jazmine joshi by phone p [phone]. CM spoke with Jazmine and she is [...] follow for ongoing d/c planning/needs. Ninoska Cuellar, Rn-Emissions Inspector Ed - 03/28/18 16:01:02 [facility] Clem states home cost for Rocephin is $3.70/wk. She states they may be able to contract with SNF to provide abx at pt's cost. She asked CM to have SNF call Paulo at their office to see about arranging. CM called MADELYN Corona with [facility] and [facility]. Updated BS RNAva. CM will cont to follow. Ninoska Cuellar, Rn-Emissions Inspector Ed - 03/28/18 14:57:29 Called [facility] and spoke with Chiquita and updated her on IV abx needs. SHe will check cost and call CM back to see if bed offer is still on the table. CM left for Sheri with [facility] to update her, left requesting return phone call. CM updated pt and she appears discouraged that [facility] will not accept her as a pt. She tells CM that she is considering just going home. BLAKE also called Clem with [facility] to argueta abx at home. She states that [facility] may also be able to contract with facility to provide them with abx at their cost. CM faxed info on pt and abx to [facility] f [phone]. CM updated BS RN, Ava. CM will cont to follow. Ninoska Cuellar, Rn-Emissions Inspector Ed - 03/28/18 14:21:[address] Robert bradley and he tells CM that pt is ready for discharge from his standpoint and that ID has a plan in place for IV abx. PT does have a PICC in place. Recieved VM from [facility] with [facility] p [phone] stating they are interested in pt. CM went to BS to speak with pt to discuss bed offers. CM presented bed offers and pt tells CM that she really doesn't want to go to another facility. Pt tells CM that she only wants to go to [facility], as she has been there in the past. [facility] had not make bed offer at this [...] updates, as well as faxed updates f [phone]. She states they will reevaluate now, knowing [...] pt at this time due to the $8254-2598 IV rocephin cost through 05/04/[address] Diaz orders. Cm to follow for ongoing d/c planning/needs. Stew Porras, REGULO - 03/27/18 16:25:12 edie from [facility] ( ex [phone]) called to make bed offer. bed offers will be presented to pt 03/28. [phone] Stew Porras, RN - 03/27/18 15:00:29 spoke to ID who states pt maybe ready for dc as early as 03/28. id and attending PA are recommending SNF. spoke with pt and her dtr, jazmine and informed them of suggestion from drs to dc to snf for iv abx. pt and dtr in agreement [facility] [place].... [place]. Stew Porras, REGULO - 03/27/18 10:34:34 RRS-43 + for [facility] CT consulted and per ID, infection must clear prior to any ant surgical intervention Currnelty on rocephin iv w/bld cx pending Documentation Status Complete : Yes Odalys Bush, Rn-Emissions Inspector - 03/29/2018 13:20 EST Electronically signed by Jorge Alberto [facility] Conversion Bible Worker Cerner at 05/29/2022 8:48 PM CDT documented in this encounter Plan of Treatment Not on file documented as of this encounter Visit Diagnoses Not on filedocumented in this encounter
--- OUTSIDE RECORDS SUMMARY | 2024-11-17 13:21 | XMS_ITS | Encounter Summary ---
Author Organization [employer] ([place], [place], [place], [place]) Address [address] [place] [address] Care Team Providers Care State Historical Society Director Name Role Phone Unavailable Primary Care Provider Unavailabl e Encounter Details Date Type Department Care Team (Late st Contact Info) Description 05/07/2018 Transcribed Document [facility] Family Medicine [address] [place] [address] ProviderZion MD [address] [place] [address] Social History Tobacco Use Types [...] you are awake and alert. ??? Take ieyf-jeq-ecyzvbn and prescription medicines only as told by [...] 11/18/2013 Document Revised: 07/02/2016 Document Reviewed: 05/19/2016 [employer] Interactive Patient Education ? 2017 [email or web address] Radiology Transesophageal Echocardiogram Transesophageal echocardiography (BROCK) [...] 07/30/2013 Elsevier Interactive Patient Education ? 2017 [employer] documented in this encounter Plan of Treatment Not on file documented as of this encounter Visit Diagnoses Not on filedocumented in this encounter
--- OUTSIDE RECORDS SUMMARY | 2024-11-17 13:21 | XMS_ITS | Encounter Summary ---
Author Organization [employer] ([place], [place], [place], [place]) Address [address] [place] [address] Care Team Providers Care Bevel Face Stoner And Polisher Name Role Phone Unavailable Primary Care Provider Unavailabl e Encounter Details Date Type Department Care Team (Late st Contact Info) Description 03/29/2018 Transcribed Document [facility] Family Medicine [address] [place] [address] ProviderZion MD [address] [place] [address] Social History Tobacco Use Types Packs/Day Years Used Date Smoking Tobacco: Never Assessed Comments Unknown Sex and Gender Information Value Date Recorded Sex Assigned at Not on file Legal Sex Female 4:39 PM CDT Gender Identity Not on file Sexual Orientation Not on file documented as of this encounter Miscellaneous Notes * Cerner Conversion Note - Zion ProviderMD - 03/29/2018 1:35 PM REHAB DIRECTOR OCCUPATIONAL THERAPIST Patient: ETHAN LOREDO Age: 57 years Sex: [...] Rocephin: 2 Gram, 100 mL/Hr, IV Piggyback, [id number] Tylenol: 650 mg, Oral, Q4H, PRN: Other [...] 0 Refill(s) Rocephin: 2 Gram, IV Piggyback, [id number], 0 Refill(s) carvedilol 3.125 mg oral tablet: [...] At Bedtime Rocephin 2 Gram, IV Piggyback, [id number] , Medications (25) Active Scheduled: (13) aspirin EC 81 mg tab 81 mg 1 Tab, Oral, Daily carvedilol 3.125 mg tab 3.125 mg 1 Tab, Oral, Daily cefTRIAXone 2 Gram, IV Piggyback, [id number] citalopram 20 mg tab 20 mg 1 [...] - Coronary artery disease / SNOMED CT 2217516996 / Confirmed Cardiomyopathy / SNOMED CT 085424938 / Confirmed HLD - Hyperlipidemia / SNOMED CT 894729651 / Confirmed HTN - Hypertension / SNOMED CT 8927282695 / Confirmed Resolved: COPD - Chronic obstructive pulmonary disease / SNOMED CT 542202788, Active Problems (14) Anxiety Atrial flutter Bladder [...] Inc bun/cr- dc lisinopril. On No diuretics Electronically signed by Vinayak Azul Conversion Personnel Research Psychologist Cerner at 05/29/2022 8:48 PM CDT documented in this encounter Plan of Treatment Not on file documented as of this encounter Visit Diagnoses Not on filedocumented in this encounter
--- OUTSIDE RECORDS SUMMARY | 2024-11-17 13:21 | XMS_ITS | Encounter Summary ---
Author Organization [employer] ([place], [place], [place], [place]) Address [address] [place] [address] Care Team Providers Care Postal Supervisor Name Role Phone Unavailable Primary Care Provider Unavailabl e Encounter Details Date Type Department Care Team (Late st Contact Info) Description 03/29/2018 Transcribed Document [facility] [place] Medicine [address] [place] [address] ProviderZion MD [address] [place] [address] Social History Tobacco Use Types [...] - Zion ProviderMD - 03/29/2018 3:54 PM DAY HABILITATION SPECIALIST [address] [place] [address] Patient Copy Patient Information: Name: ETHAN CRONIN Current Date: 03/29/2018 15:54:26 : 1960 Patient Address: [address] [place] [id number] Patient Attending Physician: MELY WHITNEY MD Primary Care Provider: CRUZ, NOT LISTED Primary Care Provider Phone: Discharge Diagnosis: Endocarditis Weight on Admission: 165 lb, 14 oz Comment: Follow-up Instructions: With: Address: When: JOHN TSAI [address] [facility] [place] [address] Business (1) Within 1 month With: Address: When: SUJIT DUNBAR [address] [facility], [address] [place] [address] Business (1) Within 2 weeks With: Address: When: Follow up with primary care provider Within 1 to 2 weeks With: Address: When: AJAY MARCANO 10:00 AM Comments: [facility] at [facility] @ 10:00 NPO after midnight Discharge Instructions: Immunizations Documented During Stay: No Immunizations Found Discharge Summary Sent to: [facility] [phone] Special Instructions: Report: [facility] [phone] Heart Failure Discharge Instructions (if any): Stroke [...] these instructions at home: Medicines ??? Take dwuq-ode-ighomab and prescription medicines only as told by [...] Assistance with quitting is available by contacting 6-372-FRGN-NOW. This is a free resource providing counseling, [...] Be sure to sign up for the [employer] patient portal, which gives you 03/09 access to your medical information ??? including these discharge instructions ??? using your computer, smartphone, or tablet. Just go to [employer] to get started. Questions? Call . [facility] would like to thank you for allowing us to assist you with your healthcare needs. GERTRUDE Mcconnell VERONICA G, (or hostess party sales representative) have received the above patient education materials/instructions and have verbalized understanding: Patient Signature _ Date/Time Patient Alining Inspector Signature (if needed) Date/Time Clinician/Hospital Alining Inspector Signature (if needed) Date/Time documented in this encounter Plan of Treatment Not on file documented as of this encounter Visit Diagnoses Not on filedocumented in this encounter
--- OUTSIDE RECORDS SUMMARY | 2024-11-17 13:21 | XMS_ITS | Encounter Summary ---
Author Organization [employer] ([place], [place], [place], [place]) Address [address] [place] [address] Care Team Providers Care Junior Automation Engineer Name Role Phone Unavailable Primary Care Provider Unavailabl e Encounter Details Date Type Department Care Team (Late st Contact Info) Description 03/23/2018 Transcribed Document [facility] Family Medicine [address] [place] [address] ProviderZion MD [address] [place] [address] Social History Tobacco Use Types [...] - Historical ProviderMD - 03/23/2018 9:00 AM CHIEF LIFESTYLE OFFICER Consult Phone Call Documentation Entered On: 03/23/2018 [...]
--- NOTE | 2024-11-17 14:37 | P.PN_ITS ---
Subjective *Date: 11/17/24 *Time: 14:37 Interval history: Nausea and vomiting improved with resolution of symptoms. There was some question about her acute on chronic anemia. One of the nurses reported a bloody bowel movement but the patient reports no significant bleeding and has had none today. She had the cecal angiodysplasias ablated in March 2024. MRCP ordered by Abi GONZALEZ. Exam Data for Last 24 hours Vital signs and Labs for Last 24 Hours: Temp Pulse Resp BP Pulse Ox O2 Del Method 98.1 F 100 H 16 140/93 H 97 Room Air 11/17/24 11:56 11/17/24 12:00 11/17/24 11:56 11/17/24 11:56 11/17/24 11:56 11/17/24 13:00 Laboratory Results - last 24 hr 11/16/24 03:50: Free T4 2.44 H 11/16/24 03:50: Free T4 2.43 H 11/16/24 04:41: Blood Type O Positive, Antibody Screen Positive, Crossmatch (AHG) See Detail 11/16/24 14:44: POC Glucose 102 11/16/24 16:20: POC Glucose 131 H 11/16/24 20:20: POC Glucose 119 H 11/17/24 05:20: POC Glucose 89 11/17/24 05:23: WBC 9.6 D, RBC 2.42 L, Hgb 6.6 L*, Hct 22.8 L, MCV 94.2, MCH 27.3, MCHC 28.9 L, RDW 23.5 H, Plt Count 214, MPV 11.4 H, Neut % (Auto) 84.8 H, Lymph % (Auto) 8.1 L, Mcdonald % (Auto) 6.2, Eos % (Auto) 0.3, Baso % (Auto) 0.3, Neut # (Auto) 8.2 H, Lymph # (Auto) 0.8, Mcdonald # (Auto) 0.6, Eos # (Auto) 0.0, Baso # (Auto) 0.0, Sodium 139, Potassium 3.9 D, Chloride 108 H, Carbon Dioxide 18 L, Anion Gap 16.9 H, BUN 62 H, Creatinine 2.10 H, Estimated Creat Clear 29, Estimated GFR 24 L, Est GFR ( Amer) 29 L, Glucose 77, Calcium 8.5, Magnesium 2.0, Total Bilirubin 0.9, AST 35, ALT 95 H D, Alkaline Phosphatase 258 H, Total Protein 6.0 L, Albumin 2.9 L, Globulin 3.1, Albumin/Globulin Ratio 0.9 L 11/17/24 09:23: POC Glucose 75 11/17/24 11:09: Hgb 9.4 L D, Hct 29.2 L 11/17/24 13:09: POC Glucose 85 I & O for Last 24 hours: Intake & Output 11/14/24 11/15/24 11/16/24 11/17/24 23:59 23:59 23:59 23:59 Intake Total 1100 / 1100 50 / 150 900 / 900 Output Total 3030 / 3030 575 / 575 Balance 1100 / 1100 -2980 / -2880 325 / 325 Weight 200 lb 147 lb 9.592 oz 144 lb 8 oz Constitutional Constitutional: no acute distress *Routine HEENT Exam Head: Present normocephalic Eye: Present EOMI and PERRL ENT: Present mucous membranes moist *Routine Neck Exam Neck: Present supple; Absent lymphadenopathy *Routine Respiratory Exam Respiratory: Present CTA bilaterally *Routine Cardiovascular Exam Cardiovascular: Present RRR *Routine Abdominal Exam Abdominal: Present soft and normoactive bowel sounds; Absent tenderness *Routine Extremities Exam Extremities: Absent cyanosis, clubbing or edema *Routine Skin Exam Skin: Present warm; Absent rash *Routine Neurological Exam Neurological: Present alert and oriented X3 Assessment and Plan *Assessment and plan (1) Lesion of pancreas: Status: Acute Category: Medical Code(s): K86.9 - Disease of pancreas, unspecified (2) Anemia: Status: Acute Category: Medical Code(s): D64.9 - Anemia, unspecified (3) Hematochezia: Status: Acute Category: Medical Code(s): K92.1 - Melena Plan 1. Anemia with hemoglobin/hematocrit of 6.6 and 22.8 yesterday. She responded well to blood transfusion and today her hemoglobin hematocrit were 9.4 and 29.2. She has not had Hemoccult testing. She also does not appear to have iron testing on any recent visit. She has had the panendoscopy and I do not presently plan to repeat this because of the bleeding which was likely h emorrhoidal (seen on rectal exam and she did have the ileoscopy, sigmoidoscopy and EGD. She did have some chronic atrophic gastritis. Given that she had chronic atrophic gastritis, she is likely low in B12 and possibly iron as well. 2. Pancreatic lesion. We will await MRCP.
--- NOTE | 2024-11-17 16:14 | EXP.PN ---
Subjective *Date: 11/17/24 *Time: 16:14 Interval history: Patient feels slightly better today, include volume status. Continues to have diffuse anasarca. Will continue diuresis, reevaluate tomorrow. Exam Data for Last 24 hours Vital signs and Labs for Last 24 Hours: Temp Pulse Resp BP Pulse Ox O2 Del Method 98.1 F 100 H 16 140/93 H 97 Room Air 11/17/24 11:56 11/17/24 12:00 11/17/24 11:56 11/17/24 11:56 11/17/24 11:56 11/17/24 15:00 Laboratory Results - last 24 hr 11/16/24 03:50: Free T4 2.44 H 11/16/24 03:50: Free T4 2.43 H 11/16/24 04:41: Blood Type O Positive, Antibody Screen Positive, Crossmatch (AHG) See Detail 11/16/24 16:20: POC Glucose 131 H 11/16/24 20:20: POC Glucose 119 H 11/17/24 05:20: POC Glucose 89 11/17/24 05:23: WBC 9.6 D, RBC 2.42 L, Hgb 6.6 L*, Hct 22.8 L, MCV 94.2, MCH 27.3, MCHC 28.9 L, RDW 23.5 H, Plt Count 214, MPV 11.4 H, Neut % (Auto) 84.8 H, Lymph % (Auto) 8.1 L, [place] % (Auto) 6.2, Eos % (Auto) 0.3, Baso % (Auto) 0.3, Neut # (Auto) 8.2 H, Lymph # (Auto) 0.8, [place] # (Auto) 0.6, Eos # (Auto) 0.0, Baso # (Auto) 0.0, Sodium 139, Potassium 3.9 D, Chloride 108 H, Carbon Dioxide 18 L, Anion Gap 16.9 H, BUN 62 H, Creatinine 2.10 H, Estimated Creat Clear 29, Estimated GFR 24 L, Est GFR ( Amer) 29 L, Glucose 77, Calcium 8.5, Magnesium 2.0, Total Bilirubin 0.9, AST 35, ALT 95 H D, Alkaline Phosphatase 258 H, Total Protein 6.0 L, Albumin 2.9 L, Globulin 3.1, Albumin/Globulin Ratio 0.9 L 11/17/24 09:23: POC Glucose 75 11/17/24 11:09: Hgb 9.4 L D, Hct 29.2 L 11/17/24 13:09: POC Glucose 85 I & O for Last 24 hours: Intake & Output 11/14/24 11/15/24 11/16/24 11/17/24 23:59 23:59 23:59 23:59 Intake Total 1100 / 1100 50 / 150 900 / 900 Output Total 3030 / 3030 575 / 575 Balance 1100 / 1100 -2980 / -2880 325 / 325 Weight 90.718 kg 66.95 kg 65.544 kg Constitutional Constitutional: no acute distress and chronically ill appearing *Routine HEENT Exam Head: Present normocephalic Eye: Present EOMI and PERRL ENT: Present mucous membranes moist *Routine Neck Exam Neck: Present supple; Absent lymphadenopathy *Routine Respiratory Exam Respiratory: Present CTA bilaterally *Routine Cardiovascular Exam Cardiovascular: Present RRR *Routine Abdominal Exam Abdominal: Present soft and normoactive bowel sounds; Absent tenderness *Routine Extremities Exam Extremities: Present edema; Absent cyanosis or clubbing Comments: Diffuse 2 plus pitting edema *Routine Skin Exam Skin: Present warm; Absent rash *Routine Neurological Exam Neurological: Present alert and oriented X3 Assessment and Plan *Assessment and plan (1) Hyperkalemia: Status: Acute Category: Medical Code(s): E87.5 - Hyperkalemia (2) High anion gap metabolic acidosis: Status: Acute Category: Medical Code(s): E87.29 - Other acidosis (3) Diabetic ketoacidosis: Status: Acute Category: Medical Code(s): E11.10 - Type 2 diabetes mellitus with ketoacidosis without coma (4) Acute on chronic HFrEF (heart failure with reduced ejection fraction): Status: Acute Category: Medical Code(s): I50.23 - Acute on chronic systolic (congestive) heart failure (5) Status post mitral valve replacement: Status: Acute Category: Surgical Code(s): Z95.2 - Presence of prosthetic heart valve (6) Chronic endocarditis: Status: Acute Qualifiers: Endocarditis type: infective Infective endocarditis organism: bacterial Qualified Code(s): I33.0 - Acute and subacute infective endocarditis Category: Medical Code(s): I38 - Endocarditis, valve unspecified (7) Anemia: Status: Acute Qualifiers: Anemia type: unspecified type Qualified Code(s): D64.9 - Anemia, unspecified Category: Medical Code(s): D64.9 - Anemia, unspecified (8) T2DM (type 2 diabetes mellitus): Status: Deleted Qualifiers: Diabetes mellitus [facility] insulin use: with termite control technician use Diabetes mellitus complication status: with kidney complications Diabetes mellitus complication detail: with chronic kidney disease Chronic kidney disease stage: stage 3 (moderate) Chronic kidney disease stage 3 subtype: stage 3a (GFR 45-59) Qualified Code(s): E11.22 - Type 2 diabetes mellitus with diabetic chronic kidney disease; N18.31 - Chronic kidney disease, stage 3a; Z79.4 - [facility] (current) use of insulin Category: Medical Code(s): E11.9 - Type 2 diabetes mellitus without complications (9) CAD (coronary artery disease): Status: Deleted Qualifiers: Coronary Disease-Associated Artery/Lesion type: [place] artery [place] vs. transplanted heart: [place] heart Associated angina: with other forms of angina Qualified Code(s): I25.118 - Atherosclerotic heart disease of [place] coronary artery with other forms of angina pectoris Category: Medical Code(s): I25.10 - Atherosclerotic heart disease of [place] coronary artery without angina pectoris (10) Paroxysmal atrial fibrillation: Status: Acute Category: Medical Code(s): I48.0 - Paroxysmal atrial fibrillation (11) CKD (chronic kidney disease): Status: Acute Qualifiers: Chronic kidney disease stage: stage 3 (moderate) Chronic kidney disease stage 3 subtype: stage 3a (GFR 45-59) Qualified Code(s): N18.31 - Chronic kidney disease, stage 3a Category: Medical Code(s): N18.9 - Chronic kidney disease, unspecified (12) Hypothyroidism (acquired): Status: Chronic Category: Medical Code(s): E03.9 - Hypothyroidism, unspecified Plan Laxmi Cronin is a 64-year-old female with a medical history significant for CAD s/p 2 stents 12/13/2023, HFrEF 40%, CABG 2016, AICD, A-fib s/p maze and MILLY clip, bioprosthetic mitral valve replacement with history of chronic endocarditis on penicillin daily, CKD 3b, insulin-dependent diabetes. She presented with nausea and vomiting x 2 days. Admitted for HFrEF exacerbation. #HFrEF exacerbation #Anasarca #Pulmonary edema #Bilateral pleural effusions #High anion gap metabolic acidosis #RV failure ? Presented with nausea/vomiting, high agap acidosis, initial BNP [id number], with diffuse anasarca. Initial lactic acid 3.9, since resolved with diuresis. ? ECHO on 11/16/2024 revealed worsened LVEF 25%, moderate RV dilatation and reduction in RV function. ? Patient feels slightly better today, but continues to have diffuse but improved anasarca. Will continue diuresis, reevaluate tomorrow. ? Continue Bumex 2 mg twice daily, will hold off on spironolactone due to history of hyperkalemia. ? Hold off on beta-radha due to acute HFrEF state. Consider on discharge. Also consider SGLTi on discharge for GDMT. ? Cardiology consulted, suspect worsened LVEF due to anemia and history of A-fib. Troponins normal, low suspicion for ACS. Will consider repeat ECHO on outpatient basis. ? Cardiology started Entresto 24/26 mg twice daily. ? Follow-up renal function, urine output, electrolytes. ? Follow-up morning CMP, magnesium. On room air. #Acute on chronic anemia ? Hemoglobin as low as 6.2 during admission, improved to 9.4 today with 2 units PRBC transfusion. Tested positive for molecular antibodies. ? Patient has a history of cecal angiodysplasia s/p ablation in March 2024. Patient did have 1 bloody bowel movement during admission. Vital signs stable. ? GI consulted, will hold off on scoping for now especially with improvement in hemoglobin. Suspect hemorrhoidal bleeding as evidenced on exam. ? Follow-up iron studies, B12, folate. #Left lower lobe community-acquired pneumonia ? Seen on CT chest on 11/15/2024. ? Continue ceftriaxone 1 g daily, started doxycycline 100 mg twice daily day 2. ? Follow-up sputum cultures. #Pancreatic edema ? CT abdomen reveals peripancreatic edema, but this more likely represents sequela of anasarca rather than acute pancreatitis as lipase is normal and patient has no abdominal pain. #Gastroduodenitis ? Continue Protonix 40 mg nightly. #Suspected cirrhosis ? Seen on CT abdomen on admission. Follow-up PT/INR. ? Plan to refer to gastroenterology on discharge. #CKD stage IIIb ? Creatinine 2.1, GFR 29. #Paroxysmal A-fib #History of MILLY clip with maze ? Currently rate controlled. Continue home amiodarone 200 mg daily. ? Discussed with cardiology, do not recommend chronic anticoagulation due to procedure as above. Discontinued Eliquis, especially in the setting of GI bleed. #History of STEMI #CAD #CABG 2016 ? Last cath performed in March of this year with the following findings: Severe disease in the saphenous vein graft limb supplying the LAD; Successful stenting of the saphenous vein graft severe disease reduced to 0% with 1 drug-eluting stent - Continue Plavix 75 mg daily per cardiology recommendations. #Bioprosthetic mitral valve replacement with chronic endocarditis ? Continue home penicillin discharge. Ceftriaxone for now. #History of hypothyroid ? Discontinued levothyroxine as free T4 elevated to 2.43. Repeat TFTs in 4 weeks. #History of type 2 diabetes ? Hemoglobin A1c 5.5% on admission. Well-controlled. Full code DVT prophylaxis: SCDs
[2024-11-17 16:34] LABS: POC Glucose,Bedside 139 gm/dL (70-110)
--- NOTE | 2024-11-17 17:23 | PC.NURSE ---
a/ox4, remains on room air. urostomy draining well. received 1 unit of blood this AM. tolerating cardiac diet. no reports of bloody or black stools this shift. patient stated she felt anxious this shift, MD aware new orders received. call light within reach, no complaints at this time.
[2024-11-17] MEDS: ROPINIROLE 1MG TABLET 1 MG PO (21:55)
[2024-11-17] MEDS: MIRTAZAPINE 15 MG TABLET PO (21:56)
[2024-11-17] MEDS: PANTOPRAZOLE 40MG TABLET 40 MG PO (22:01)
[2024-11-17] MEDS: humaLOG 100 UNITS/ML 10ML VIAL (SSI) SUBCUT (22:01)
[2024-11-17 22:02] LABS: POC Glucose,Bedside 210 gm/dL (70-110)
[2024-11-18] VITALS: BP 98/66; PULSE 105; PULSE 110; RESP 18; TEMP 36.8; O2SAT 98
--- NOTE | 2024-11-18 03:27 | PC.NURSE ---
Pt is A&O X4, pt has been tachy on telemetry. Pt has tolerated Room Air. Pt is a Q4 Accu check seen mar for dosing. Pt urostomey is drain good over night. Pt has her call light with in reach and no complains at this time. MEETA DENT RN
[2024-11-18 03:43] LABS: POC Glucose,Bedside 75 gm/dL (70-110)
[2024-11-18 04:00] VITALS: BP 120/67; PULSE 102; PULSE 80; RESP 15; TEMP 36.9; O2SAT 99; BMI 27.6
[2024-11-18 04:52] LABS: POC Glucose,Bedside 104 gm/dL (70-110)
[2024-11-18] MEDS: LEVOTHYROXINE 25MCG (0.025MG) TAB 25 MCG PO (07:27)
[2024-11-18 07:31] LABS: Hematocrit 28.2 % (37.0-47.0); Hemoglobin 8.5 g/dL (12.2-16.2); Immature Granulocytes % 0.2 %; Mean Corpuscular HGB Conc 30.1 g/dL (31.8-35.4); Mean Corpuscular Hemoglobin 27.8 pg (27.0-31.2); Mean Corpuscular Volume 92.2 fl (81-99); Nucleated Red Blood Cells % 0.2 %; Platelet Count 196 K/mm3 (142-424); Red Blood Count 3.06 M/mm3 (4.20-5.40); Red Cell Distribution Width-SD 78.4 fL; White Blood Count 8.7 K/mm3 (4.8-10.8)
[2024-11-18 08:00] VITALS: BP 108/59; PULSE 106; PULSE 90; RESP 16; TEMP 36.6; O2SAT 97
[2024-11-18 08:13] LABS: CA 19-9 13 U/mL (0-35)
[2024-11-18 08:21] LABS: INR 1.23 (0.9-1.1); Prothrombin Time 13.4 seconds (10.1-12.5)
[2024-11-18 08:31] LABS: Albumin Level 3.1 g/dl (3.5-5.0); Chloride 106 mmol/L (98-107); Iron 68 ug/dL (37-170); Sodium 138 mmol/L (136-145)
[2024-11-18 08:34] LABS: Alanine Aminotransferase 84 U/L (12-78); Albumin/Globulin Ratio 1.0 (1.1-1.8); Alkaline Phosphatase 277 U/L (38-126); Anion Gap 14.9 mEq/L (5-15); Aspartate Amino Transferase 33 U/L (14-36); Bilirubin,Total 0.9 mg/dl (0.2-1.3); Calcium 7.7 mg/dl (8.4-10.2); Carbon Dioxide 20 mmol/L (22.0-30.0); Globulin 3.1 g/dL (1.3-3.2); Glucose 69 mg/dl (74-100); Total Protein,Serum 6.2 g/dl (6.3-8.2)
[2024-11-18 08:35] LABS: Magnesium 1.8 mg/dl (1.6-2.3)
[2024-11-18] MEDS: CLOPIDOGREL 75MG TAB 75 MG PO (08:35)
[2024-11-18] MEDS: CITALOPRAM 20MG TABLET 20 MG PO (08:36)
[2024-11-18] MEDS: DOXYCYCLINE HYCL 100 MG TABLET PO (08:36)
[2024-11-18] MEDS: PRO-STAT AWC 30ML LIQUID PACKET 30 ML PO (08:37)
[2024-11-18 08:41] LABS: Total Iron Binding Capacity 336 ug/dL (265-497)
[2024-11-18 08:54] LABS: POC Glucose,Bedside 183 gm/dL (70-110)
[2024-11-18 09:09] LABS: Ferritin 55.1 ng/ml (11.1-264)
[2024-11-18 09:34] LABS: Potassium 2.9 mmoL/L (3.5-5.1)
[2024-11-18] MEDS: humaLOG 100 UNITS/ML 10ML VIAL (SSI) SUBCUT (09:50)
[2024-11-18] MEDS: AMIODARONE 200MG TABLET 400 MG PO (09:51)
[2024-11-18] MEDS: POTASSIUM CHLORIDE 20MEQ TAB 40 MEQ PO ×2 (11:14→14:16)
[2024-11-18 12:00] VITALS: BP 126/81; PULSE 120; PULSE 97; RESP 17; TEMP 36.4; O2SAT 100
[2024-11-18 12:11] LABS: Blood Urea Nitrogen 59 mg/dl (7-17); Creatinine Clearance Estimated 27 mL/min (50-200); Creatinine,Serum 2.30 mg/dl (0.52-1.04); Estimated Glomerular Filt Rate 21 ml/min (>60); GFR (African American) 26 ML/MIN (>60)
[2024-11-18 12:50] LABS: POC Glucose,Bedside 149 gm/dL (70-110)
--- NOTE | 2024-11-18 13:11 | P.DS_ITS ---
General Admission date:: 11/16/24 HPI HPI HPI: Ms. Cronin is a 64-year-old female with extensive history of CAD, CHF, CABG, urostomy, bioprosthetic mitral valve, CKD 3, insulin-dependent diabetes. She presented to the ER via EMS from [facility] for intractable nausea and vomiting that began today. Denies fever or diarrhea. Glucose on arrival was 238. Initial workup found VBG with pH of 7.14, pCO2 of 36. Lactate of 4.8. Chemistry with potassium 6.3, sodium 135. Anion gap 22. Creatinine 2.0, BUN 66. Liver enzymes abnormal with AST of 40, ALT 137, alk phos 280. BNP 3300. Lipase 248. CT of the abdomen shows concern for calcified possible stone near pancreatic head. Treated for hyperkalemia with some improvement to 5.2. Bicarb remains low at 9 with anion gap of 21. Medicine consulted for admission and further management of electrolyte disturbances and metabolic acidosis. On evaluation, concern for DKA component given patient is no longer wearing a pump. States she has had her basal insulin but does not recall if she has had short acting insulin today. Her constellation of symptoms would fit with DKA, versus gastroenteritis, versus pancreatitis. Will administer 1 amp of bicarb and initiated on sliding scale insulin every 4 hours with fingersticks every 4 hours scheduled. Interactive on exam, answering questions slowly but appropriately. Stable on room air. Afebrile. Tolerating p.o. liquids on evaluation. per admission H&P ---- This is a 64-year-old female [facility] patient who was admitted with complaints of intractable nausea and vomiting. Patient reports complete resolution of the symptoms. She denies any diarrhea or other GI complaints. She is able to eat and drink appropriately today. CT noted peripancreatic edema versus anasarca and noted large amount of anasarca throughout abdomen. She did have mild evidence of ascites. History of hepatic steatosis but nodular liver concerning for cirrhosis. She does have elevations of her liver enzymes with a bilirubin of 1.2, AST of 40, ALT of 137 and alk phos of 280. Patient has had intermittent elevations of her liver enzymes over the years particularly mild elevation of AST and alkaline phosphatase. 4.6 cm calcified density in the pancreatic head. She did have hypodense lesion noted on CT in 2020 at the pancreatic head of 2.6 x 1.7 cm. Lipase was 248. Patient denies any abdominal pain. Nausea vomiting resolved. She is asymptomatic on exam. Patient does have acute on chronic anemia. Hemoglobin dropped as low as 6.4 during admission awaiting 2 units packed red cells (patient has antibodies). Underwent panendoscopy with Dr. Lock March 2024 for the same issue. She does have chronic atrophic gastritis and did have a cecal angiodysplasia status post APC ablation. CT also noted possible colonic wall thickening concerning for colitis but she has no abdominal pain and no diarrhea. Wall thickening of the gastric antrum and duodenum concerning for acute gastroduodenitis but nausea vomiting has resolved patient is otherwise asymptomatic. She denies melena or hematochezia. Hospital Course Hospital Course Hospital Course: Laxmi Cronin is a 64-year-old female with a medical history significant for CAD s/p 2 stents 12/13/2023, HFrEF 40%, CABG 2016, AICD, A-fib s/p maze and MILLY clip, bioprosthetic mitral valve replacement with history of chronic endocarditis on penicillin daily, CKD 3b, insulin-dependent diabetes. She presented with nausea and vomiting x 2 days. Admitted for HFrEF exacerbation. #HFrEF exacerbation #Anasarca #Pulmonary edema #Bilateral pleural effusions #High anion gap metabolic acidosis #RV failure #History of orthostatic hypotension ? Presented with nausea/vomiting, high agap acidosis, initial BNP 70404, with diffuse anasarca. Initial lactic acid 3.9, since resolved with diuresis. ? ECHO on 11/16/2024 revealed worsened LVEF 25%, moderate RV dilatation and reduction in RV function. ? Clinically improved with IV Bumex diuresis. Transition to p.o. Bumex 2 mg daily. ? Hold off on beta-radha due to acute HFrEF state, and risk of cardiogenic shock due to low EF. ? Will hold off on Entresto as patient has had intermittent soft pressures with systolics in the 90s, currently on midodrine. ? Will hold off on spironolactone due to history of hyperkalemia. ? Discharged with Bumex 1 mg daily, Farxiga 10 mg. ? Decreased midodrine to 5 mg 2 times daily in the setting of HFrEF. ? Cardiology consulted, suspect worsened LVEF due to anemia and history of A- fib. Troponins normal, low suspicion for ACS. Will consider repeat ECHO on outpatient basis. ? Continue good restriction to 2 L daily. ? Follow-up with cardiology within 1 week to reevaluate GDMT. #Acute on chronic anemia ? Hemoglobin as low as 6.2 during admission, improved to 9.4 today with 2 units PRBC transfusion. Tested positive for molecular antibodies. ? Patient has a history of cecal angiodysplasia s/p ablation in March 2024. Patient did have 1 bloody bowel movement during admission. Vital signs stable. ? GI consulted, will hold off on scoping for now especially with improvement in hemoglobin. Suspect hemorrhoidal bleeding as evidenced on exam. ? Iron panel, B12, folate normal. ? Follow-up with GI within 2 months. #Left lower lobe community-acquired pneumonia ? Seen on CT chest on 11/15/2024. ? Treated with ceftriaxone, doxycycline. Discharged with levofloxacin 750 mg every 40 (renally dosed) for 2 more doses. #Pancreatic edema ? CT abdomen reveals peripancreatic edema, but this more likely represents sequela of anasarca rather than acute pancreatitis as lipase is normal and patient has no abdominal pain. #Gastroduodenitis ? Continue Protonix 40 mg nightly. #Suspected cirrhosis ? Seen on CT abdomen on admission. Follow-up PT/INR. ? Referred to gastroenterology on discharge. #CKD stage IIIb ? Creatinine 2.1, GFR 29. #Paroxysmal A-fib #History of MILLY clip with maze ? Currently rate controlled. Continue home amiodarone 200 mg daily. ? Discussed with cardiology, do not recommend chronic anticoagulation due to MILLY clip with maze. Discontinued Eliquis, especially in the setting of recent GI bleed. #History of STEMI #CAD #CABG 2016 ? Last cath performed in March of this year with the following findings: Severe disease in the saphenous vein graft limb supplying the LAD; Successful stenting of the saphenous vein graft severe disease reduced to 0% with 1 drug- eluting stent - Continue Plavix 75 mg daily per cardiology recommendations. #Bioprosthetic mitral valve replacement with chronic endocarditis ? Continue home penicillin discharge. Ceftriaxone for now. #History of hypothyroid ? Discontinued levothyroxine as free T4 elevated to 2.43. Repeat TFTs in 4 weeks. #History of type 2 diabetes ? Hemoglobin A1c 5.5% on admission. Well-controlled. ? Started Farxiga 10 mg as above. Exam Data for Last 24 hours Vital signs and Labs for Last 24 Hours: Temp Pulse Resp BP Pulse Ox O2 Del Method 97.5 F L 97 H 17 126/81 100 Room Air 11/18/24 12:00 11/18/24 12:00 11/18/24 12:00 11/18/24 12:00 11/18/24 12:00 11/18/24 12:00 Laboratory Results - last 24 hr 11/16/24 05:23: CA 19-9 Antigen 13 11/17/24 13:09: POC Glucose 85 11/17/24 16:27: POC Glucose 139 H 11/17/24 21:54: POC Glucose 210 H 11/18/24 00:55: POC Glucose 75 11/18/24 04:45: POC Glucose 104 11/18/24 06:48: WBC 8.7, RBC 3.06 L D, Hgb 8.5 L, Hct 28.2 L, MCV 92.2, MCH 27.8, MCHC 30.1 L, RDW 23.9 H, Plt Count 196, MPV 11.2 H, Neut % (Auto) 80.9 H, Lymph % (Auto) 10.0, [place] % (Auto) 6.9, Eos % (Auto) 1.4, Baso % (Auto) 0.6, Neut # (Auto) 7.0, Lymph # (Auto) 0.9, [place] # (Auto) 0.6, Eos # (Auto) 0.1, Baso # (Auto) 0.1, PT 13.4 H, INR 1.23 H, Sodium 138, Potassium 2.9 L* D, Chloride 106, Carbon Dioxide 20 L, Anion Gap 14.9, BUN 59 H, Creatinine 2.30 H, Estimated Creat Clear 27, Estimated GFR 21 L, Est GFR ( Amer) 26 L, Glucose 69 L, Calcium 7.7 L, Magnesium 1.8, Iron 68, TIBC 336, Iron Saturation 20.91120, Ferritin 55.1 D, Total Bilirubin 0.9, AST 33, ALT 84 H, Alkaline Phosphatase 277 H, Total Protein 6.2 L, Albumin 3.1 L, Globulin 3.1, Albumin/Globulin Ratio 1.0 L 11/18/24 08:44: POC Glucose 183 H 11/18/24 12:42: POC Glucose 149 H I & O for Last 24 hours: Intake & Output 11/15/24 11/16/24 11/17/24 11/18/24 23:59 23:59 23:59 23:59 Intake Total 1100 / 1100 50 / 150 1200 / 1440 290 / 290 Output Total 3030 / 3030 1675 / 1675 1525 / 1525 Balance 1100 / 1100 -2980 / -2880 -475 / -235 -1235 / -1235 Weight 90.718 kg 66.95 kg 65.544 kg 66.406 kg Constitutional Constitutional: no acute distress and chronically ill appearing *Routine HEENT Exam Head: Present normocephalic Eye: Present EOMI and PERRL ENT: Present mucous membranes moist *Routine Neck Exam Neck: Present supple; Absent lymphadenopathy *Routine Respiratory Exam Respiratory: Present CTA bilaterally *Routine Cardiovascular Exam Cardiovascular: Present RRR *Routine Abdominal Exam Abdominal: Present soft and normoactive bowel sounds; Absent tenderness *Routine Extremities Exam Extremities: Present edema; Absent cyanosis or clubbing *Routine Skin Exam Skin: Present warm; Absent rash *Routine Neurological Exam Neurological: Present alert and oriented X3 Results Data Completed and Pending Labs on day of discharge: Labs from last 24 hours 11/18/24 11/18/24 11/18/24 12:42 08:44 06:48 WBC 8.7 RBC 3.06 L D Hgb 8.5 L Hct 28.2 L MCV 92.2 MCH 27.8 MCHC 30.1 L RDW 23.9 H Plt Count 196 MPV 11.2 H Neut % (Auto) 80.9 H Lymph % (Auto) 10.0 [place] % (Auto) 6.9 Eos % (Auto) 1.4 Baso % (Auto) 0.6 Neut # (Auto) 7.0 Lymph # (Auto) 0.9 [place] # (Auto) 0.6 Eos # (Auto) 0.1 Baso # (Auto) 0.1 PT 13.4 H INR 1.23 H Sodium 138 Potassium 2.9 L* D Chloride 106 Carbon Dioxide 20 L Anion Gap 14.9 BUN 59 H Creatinine 2.30 H Estimated Creat Clear 27 Estimated GFR 21 L Est GFR ( Amer) 26 L Glucose 69 L POC Glucose 149 H 183 H Calcium 7.7 L Magnesium 1.8 Iron 68 TIBC 336 Iron Saturation 20.12724 Ferritin 55.1 D Total Bilirubin 0.9 AST 33 ALT 84 H Alkaline Phosphatase 277 H Total Protein 6.2 L Albumin 3.1 L Globulin 3.1 Albumin/Globulin Ratio 1.0 L CA 19-9 Antigen 11/18/24 11/18/24 11/17/24 04:45 00:55 21:54 WBC RBC Hgb Hct MCV MCH MCHC RDW Plt Count MPV Neut % (Auto) Lymph % (Auto) [place] % (Auto) Eos % (Auto) Baso % (Auto) Neut # (Auto) Lymph # (Auto) [place] # (Auto) Eos # (Auto) Baso # (Auto) PT INR Sodium Potassium Chloride Carbon Dioxide Anion Gap BUN Creatinine Estimated Creat Clear Estimated GFR Est GFR ( Amer) Glucose POC Glucose 104 75 210 H Calcium Magnesium Iron TIBC Iron Saturation Ferritin Total Bilirubin AST ALT Alkaline Phosphatase Total Protein Albumin Globulin Albumin/Globulin Ratio CA 19-9 Antigen 11/17/24 11/17/24 11/16/24 16:27 13:09 05:23 WBC RBC Hgb Hct MCV MCH MCHC RDW Plt Count MPV Neut % (Auto) Lymph % (Auto) [place] % (Auto) Eos % (Auto) Baso % (Auto) Neut # (Auto) Lymph # (Auto) [place] # (Auto) Eos # (Auto) Baso # (Auto) PT INR Sodium Potassium Chloride Carbon Dioxide Anion Gap BUN Creatinine Estimated Creat Clear Estimated GFR Est GFR ( Amer) Glucose POC Glucose 139 H 85 Calcium Magnesium Iron TIBC Iron Saturation Ferritin Total Bilirubin AST ALT Alkaline Phosphatase Total Protein Albumin Globulin Albumin/Globulin Ratio CA 19-9 Antigen 13 DS: Diagnosis Discharge Diagnosis (1) Hyperkalemia: Status: Acute Code(s): E87.5 - Hyperkalemia (2) High anion gap metabolic acidosis: Status: Acute Code(s): E87.29 - Other acidosis (3) Diabetic ketoacidosis: Status: Acute Code(s): E11.10 - Type 2 diabetes mellitus with ketoacidosis without coma (4) Acute on chronic HFrEF (heart failure with reduced ejection fraction): Status: Acute Code(s): I50.23 - Acute on chronic systolic (congestive) heart failure (5) Status post mitral valve replacement: Status: Acute Code(s): Z95.2 - Presence of prosthetic heart valve (6) Chronic endocarditis: Status: Acute Code(s): I38 - Endocarditis, valve unspecified Qualifiers: Endocarditis type: infective Infective endocarditis organism: bacterial Qualified Code(s): I33.0 - Acute and subacute infective endocarditis (7) Anemia: Status: Acute Code(s): D64.9 - Anemia, unspecified Qualifiers: Anemia type: unspecified type Qualified Code(s): D64.9 - Anemia, unspecified (8) T2DM (type 2 diabetes mellitus): Status: Deleted Code(s): E11.9 - Type 2 diabetes mellitus without complications Qualifiers: Chronic kidney disease stage: stage 3 (moderate) Chronic kidney disease stage 3 subtype: stage 3a (GFR 45-59) Diabetes mellitus complication detail: with chronic kidney disease Diabetes mellitus complication status: with kidney complications Diabetes mellitus termination clerk insulin use: with group home use Qualified Code(s): E11.22 - Type 2 diabetes mellitus with diabetic chronic kidney disease; N18.31 - Chronic kidney disease, stage 3a; Z79.4 - terminal carman (current) use of insulin (9) CAD (coronary artery disease): Status: Deleted Code(s): I25.10 - Atherosclerotic heart disease of [place] coronary artery without angina pectoris Qualifiers: Associated angina: with other forms of angina Coronary Disease- Associated Artery/Lesion type: [place] artery [place] vs. transplanted heart: [place] heart Qualified Code(s): I25.118 - Atherosclerotic heart disease of [place] coronary artery with other forms of angina pectoris (10) Paroxysmal atrial fibrillation: Status: Acute Code(s): I48.0 - Paroxysmal atrial fibrillation (11) CKD (chronic kidney disease): Status: Acute Code(s): N18.9 - Chronic kidney disease, unspecified Qualifiers: Chronic kidney disease stage: stage 3 (moderate) Chronic kidney disease stage 3 subtype: stage 3a (GFR 45-59) Qualified Code(s): N18.31 - Chronic kidney disease, stage 3a (12) Hypothyroidism (acquired): Status: Chronic Code(s): E03.9 - Hypothyroidism, unspecified Meds Home Medications and Allergies Home Medications ?Medication ?Instructions ?Recorded ?Confirmed ?Type blood sugar diagnostic (True #10 ea 04/22/24 11/11/24 History Metrix Glucose Test Strip) blood-glucose sensor (Dexcom G7 #1 04/22/24 5 History Sensor device) insulin syringe-needle U-100 1 mL #10 ea 04/22/24 1003/07 History 31 gauge x 5/16 albuterol sulfate 90 mcg/actuation 2 inh inhalation QI D PRN shortness 07/09/24 11/16/24 Rx aerosol inhaler of breath or wheezing 90 day s #8.5 grams pantoprazole 40 mg tablet,delayed 40 mg PO HS 10/07/24 11/16/24 History release (Protonix) amiodarone 200 mg tablet 400 mg PO DAILY 10/08/2408/05 History atorvastatin 40 mg tablet (Lipitor) 40 mg PO HS 11/16/24 History citalopram 20 mg tablet 20 mg PO HS 10/08/24 5 History clopidogrel 75 mg tablet 75 mg PO DAILY 10/08/2408/05 History ondansetron HCl 4 mg tablet 4 mg PO Q6HP PRN Nausea An d 10/08/24 11/16/24 History Vomiting ropinirole 1 mg tablet 1 mg PO HS 10/08/24 11/16/24 History alprazolam 0.25 mg tablet 0.25 mg PO BID 11/16/2408/05 History amino acids-protein hydrolysate 17 1 ea PO DAILY 11/1611/16/24 History gram-100 kcal/30 mL liquid packet (Pro-Stat AW) cyanocobalamin (vitamin B-12) 100 100 mcg PO DAILY 08/0511/16/24 History mcg tablet folic acid 1 mg tablet 1 mg PO DAILY 11/16/2411/16 History hydrocodone 5 mg-acetaminophen 325 1 tab PO Q6HP PRN M oderate Pain 11/16/24 11/16/24 History mg tablet (Scale Score 5-6) mirtazapine 15 mg tablet 15 mg PO HS 11/16/24 5 History penicillin V potassium 250 mg 250 mg PO BID 11/16/24 1 History tablet bumetanide 2 mg tablet 2 mg PO DAILY 30 days #30 ta bs 11/18/24 Rx dapagliflozin propanediol 10 mg 10 mg PO DAILY #30 tab s 11/18/24 Rx tablet (Farxiga) levofloxacin 750 mg tablet 750 mg PO DAILY #2 tabs 10/05 Rx midodrine 10 mg tablet 5 mg (1/2 x 10 mg) PO BID 30 days 11/18/24 11/16/24 Rx #0 tabs New Prescriptions to Start Prescriptions: bumetanide Demetri Santoyo dapagliflozin propanediol [Farxiga] Demetri Santoyo levofloxacin Demetri Santoyo Allergies Allergy/AdvReac Type Severity Reaction Status Date / Time No Known Allergies Allergy Verified 11/11/24 08:38 Discharge Plan Disposition Patient Disposition: [facility] Condition: Fair Discharge Order Discharge Orders: Discharge Order (Routine); Ordered 11/18/24 Ordered By: Demetri Santoyo Follow up Plan Follow up with: Slim Ty PA [Physician Technical Expert, Cardiology] - 1 week Abi Hunter APRN [Nurse Practitioner, Gastroenterology] - 2 weeks Referral Note: GI bleed, suspected cirrhosis Prescriptions/Medication Reconciliation: New bumetanide 2 mg tablet 2 mg PO DAILY 30 Days Qty: 30 0RF levofloxacin 750 mg tablet 750 mg PO DAILY Qty: 2 0RF dapagliflozin propanediol [Farxiga] 10 mg tablet 10 mg PO DAILY Qty: 30 0RF Continued (DME) True Metrix Glucose Test Strip Strip See Rx Instructions .ROUTE .MEDSUPPLY Qty: 10 Rx Instructions: As directed (DME) insulin syringe-needle U-100 1 mL 31 gauge x 5/16 syringe See Rx Instructions .ROUTE .MEDSUPPLY Qty: 10 Rx Instructions: As directed (DME) Dexcom G7 Sensor Device See Rx Instructions .ROUTE .MEDSUPPLY Qty: 1 Patient Comments: USE DIRECTED CHANGING EVERY 10 DAYS Rx Instructions: As directed atorvastatin [Lipitor] 40 mg tablet 40 mg PO HS ropinirole 1 mg tablet 1 mg PO HS citalopram 20 mg tablet 20 mg PO HS amiodarone 200 mg tablet 400 mg PO DAILY ondansetron HCl 4 mg tablet 4 mg PO Q6HP PRN (Reason: Nausea And Vomiting) clopidogrel 75 mg tablet 75 mg PO DAILY albuterol sulfate 90 mcg/actuation HFA aerosol inhaler 2 inh inhalation QID PRN (Reason: shortness of breath or wheezing) 90 Days Qty: 8.5 2RF pantoprazole [Protonix] 40 mg tablet,delayed release (DR/EC) 40 mg PO HS penicillin V potassium 250 mg tablet 250 mg PO BID cyanocobalamin (vitamin B-12) 100 mcg Tablet 100 mcg PO DAILY alprazolam 0.25 mg tablet 0.25 mg PO BID folic acid 1 mg Tablet 1 mg PO DAILY mirtazapine 15 mg tablet 15 mg PO HS Pro-Stat AWC 17-100 gram-kcal/30 mL Liquid In Packet 1 ea PO DAILY hydrocodone-acetaminophen 5-325 mg tablet 1 tab PO Q6HP PRN (Reason: Moderate Pain (Scale Score 5-6)) Changed midodrine 10 mg tablet 5 mg PO BID 30 Days Qty: 0 0RF Discontinued insulin lispro 100 unit/mL solution 0 unit SQ DIRECTED Rx Instructions: PER SLIDING SCALE levothyroxine 25 mcg capsule 25 mcg PO DAILY Eliquis 5 mg tablet 5 mg PO BID insulin glargine [Lantus Solostar U-100 Insulin] 100 unit/mL (3 mL) insulin pen 10 unit SQ HS Qty: 3 0RF Problem Reconciliation Problems Reviewed?: Yes Patient Discharge Instructions Patient Instructions: DI for Heart Failure, DI for Ascites, DI for Cirrhosis, Stop Light Pneumonia, Stop Light Heart Failure Print Language: Slovenian Providers Primary Care Provider: Ivonne Jones Admit Provider: Vincent Hernandez Attending Provider: Vincent Hernandez
[2024-11-18 14:21] LABS: Vitamin B12 894 pg/mL (239-931)
[2024-11-27 03:36] LABS: 1,25 Dihydroxy Vitamin D 36 pg/mL (.); 1,25-Dihydroxy, Vitamin D-2 22 pg/mL (.); 1,25-Dihydroxy, Vitamin D-3 14 pg/mL (.)
== END 2024-11-18 17:53 | DRG 291 ==
LOC: ER 20:06 → ICU 11-16 00:30 → 2ND 11-16 16:49 → ICU 11-17 13:17
PROVIDERS: Internal Medicine Gastroenterology; Nurse Practitioner; Nurse Practitioner Family; Student in an Organized Health Care Education/Training Program; Admitting Provider Internal Medicine Adolescent Medicine; Emergency Provider Emergency Medicine; PCP Nurse Practitioner Family; Visit Provider Internal Medicine Adolescent Medicine
DX: I50.23 Acute on chronic systolic (congestive) heart failure (principal); E11.10 Type 2 diabetes mellitus with ketoacidosis without coma; J18.9 Pneumonia, unspecified organism; R18.8 Other ascites; K92.1 Melena; I38 Endocarditis, valve unspecified; D63.1 Anemia in chronic kidney disease; E11.22 Type 2 diabetes mellitus with diabetic chronic kidney disease; E87.5 Hyperkalemia; I25.118 Atherosclerotic heart disease of native coronary artery with other forms of angina pectoris; K29.90 Gastroduodenitis, unspecified, without bleeding; N18.32 Chronic kidney disease, stage 3b; I48.0 Paroxysmal atrial fibrillation; E03.9 Hypothyroidism, unspecified; K64.9 Unspecified hemorrhoids; K76.0 Fatty (change of) liver, not elsewhere classified; D50.0 Iron deficiency anemia secondary to blood loss (chronic); K74.60 Unspecified cirrhosis of liver; K29.40 Chronic atrophic gastritis without bleeding; K86.89 Other specified diseases of pancreas; F17.210 Nicotine dependence, cigarettes, uncomplicated; I25.2 Old myocardial infarction; Z95.2 Presence of prosthetic heart valve; Z95.818 Presence of other cardiac implants and grafts; Z95.810 Presence of automatic (implantable) cardiac defibrillator; Z95.1 Presence of aortocoronary bypass graft; Z86.711 Personal history of pulmonary embolism; Z95.5 Presence of coronary angioplasty implant and graft; Z79.4 Long term (current) use of insulin; Z79.01 Long term (current) use of anticoagulants; Z79.02 Long term (current) use of antithrombotics/antiplatelets; Z79.890 Hormone replacement therapy; Z79.899 Other long term (current) drug therapy
CPT/HCPCS: 36415; 36430; 71045; 74176; 74177; 80053; 82607; 82652; 82728; 82803; 82962; 83036; 83540; 83550; 83690; 83735; 83880; 84100; 84439; 84443; 84484; 85007; 85014; 85018; 85025; 85610; 86301; 86850; 86870; 87636; 89220; 93005; 93306; 97162; 97165; 99285; J0612; J0696; J1939; J2405; J7030; J7050; P9016; Q9957; Q9967

== ENCOUNTER 2024-12-03 11:21 | Outpatient (CLI) | payer MEDICARE, SELFPAY ==
[2024-12-03 12:01] LABS: Hematocrit 27.2 % (37.0-47.0); Hemoglobin 8.1 g/dL (12.2-16.2); Immature Granulocytes % 0.2 %; Mean Corpuscular HGB Conc 29.8 g/dL (31.8-35.4); Mean Corpuscular Hemoglobin 27.7 pg (27.0-31.2); Mean Corpuscular Volume 93.2 fl (81-99); Nucleated Red Blood Cells % 0 %; Platelet Count 292 K/mm3 (142-424); Red Blood Count 2.92 M/mm3 (4.20-5.40); Red Cell Distribution Width-SD 73.6 fL; White Blood Count 5.6 K/mm3 (4.8-10.8)
[2024-12-03 12:20] LABS: Ammonia 9 umol/L (9-30)
[2024-12-03 12:23] LABS: INR 1.10 (0.9-1.1); Prothrombin Time 12.1 seconds (10.1-12.5)
[2024-12-03 12:35] LABS: Albumin Level 3.3 g/dl (3.5-5.0); Chloride 102 mmol/L (98-107); Potassium 3.9 mmoL/L (3.5-5.1); Sodium 139 mmol/L (136-145)
[2024-12-03 12:37] LABS: Blood Urea Nitrogen 67 mg/dl (7-17)
[2024-12-03 12:38] LABS: Alanine Aminotransferase 28 U/L (12-78); Albumin/Globulin Ratio 1.0 (1.1-1.8); Alkaline Phosphatase 213 U/L (38-126); Anion Gap 13.9 mEq/L (5-15); Aspartate Amino Transferase 37 U/L (14-36); Bilirubin,Direct 0.3 mg/dl (0.0-0.4); Bilirubin,Indirect 0.4 mg/dL (0.0-0.9); Bilirubin,Total 0.7 mg/dl (0.2-1.3); Bilirubin,Unconjugated 0.4 mg/dL (0.0-1.1); Calcium 8.2 mg/dl (8.4-10.2); Carbon Dioxide 27 mmol/L (22.0-30.0); Creatinine,Serum 2.30 mg/dl (0.52-1.04); Estimated Glomerular Filt Rate 21 ml/min (>60); GFR (African American) 26 ML/MIN (>60); Globulin 3.2 g/dL (1.3-3.2); Glucose 75 mg/dl (74-100); Iron 51 ug/dL (37-170); Total Protein,Serum 6.5 g/dl (6.3-8.2)
[2024-12-03 12:47] LABS: Total Iron Binding Capacity 340 ug/dL (265-497)
[2024-12-03 13:13] LABS: Ferritin 34.3 ng/ml (11.1-264)
[2024-12-04 13:23] LABS: Immunoglobulin A, Qn 443 mg/dL (87-352); Immunoglobulin G, Qn 1297 mg/dL (586-1602); Immunoglobulin M, Qn 93 mg/dL (26-217)
[2024-12-04 13:24] LABS: Antinuclear Antibodies (ANA) Negative (Negative)
[2024-12-04 15:49] LABS: Deamidated Gliadin Abs, IgA 5 units (0-19); Deamidated Gliadin Abs, IgG 4 units (0-19)
[2024-12-08 17:18] LABS: ALT (SGPT) P5P 30 IU/L (0-40); AST (SGOT) P5P 40 IU/L (0-40); Alpha 2-Macroglobulins, Qn 227 mg/dL (110-276); Bilirubin, Total 0.3 mg/dL (0.0-1.2); Cholesterol, Total 118 mg/dL (100-199); GGT 36 IU/L (0-60); Glucose 81 mg/dL (70-99); Triglycerides 95 mg/dL (0-149)
== END 2024-12-03 23:59 | disposition home or self-care (01) ==
LOC: LAB 11:22
PROVIDERS: PCP Family Medicine; Visit Provider Nurse Practitioner Family
DX: K74.60 Unspecified cirrhosis of liver (principal)
CPT/HCPCS: 36415; 80053; 80074; 82103; 82104; 82105; 82140; 82164; 82172; 82247; 82248; 82390; 82465; 82728; 82784; 82947; 82977; 83010; 83521; 83540; 83550; 84450; 84460; 84478; 85025; 85610; 86015; 86038; 86231; 86258; 86364; 86376; 86381

== ENCOUNTER 2024-12-18 09:13 | Outpatient (CLI) | payer MEDICARE, SELFPAY ==
--- OUTSIDE RECORDS SUMMARY | 2024-11-13 10:20 | XMS_ITS | Encounter Summary ---
Author Organization Healthcare Address [address] [place] [address] Care Team Providers Care Cardiac Surgeon Name Role Phone Cosme Davis MD Primary Care Provider [phone] Reason for Referral * Consultation (Routine) - Authorized Specialty Diagnoses / Procedures Referred By Yogi tapia Referred To Contact Physical Therapy Diagnoses Pain in pelvis Smiley Negrete PA [address] [facility] [address] [place] [address] Phone: tel: fax: Referral ID Status Reason Start Date Expiration Date Visits Requested Visits Authorized [id number] Authorized Consult and Treat 11/13/2024 05/15/2026 1 1 Reason for Visit * Reason Comments Follow-up Encounter Details Date Type Department Care Team (Late st Contact Info) Description 11/13/2024 11:20 AM EDT [facility] Visit [facility] [address], 1st Floor [address] [place] [address] Paulo Darnell MD [address] [facility] [address] [place] [address] Pain in pelvis (Primary Dx) [...] and Family Not on file 10/13/2024 Attends [employer] Services Not on file 10/13 Active Member [...] any time in the past 12 m [facility], were you homeless or living in a jail (including now)? No 10/13/2024 [facility] Utilities Answer Date Recorded In the past 12 months has [employer], gas, oil, or water [employer] threatened to shut off services in your [...] follow up. She has been in a shelter facility. She has been working with physical [...] by mouth daily., Disp: , Rfl: HYDROcodone-acetaminophen ([place]) 5-325 MG tablet, , Disp: , Rfl: [...] Info) Description 01/21/2025 1:30 PM EST Appointment [facility] Lab [address] Floor [address], [address] [place] [address] 01/21/2025 2:00 PM EST Appointment [facility] [address] Floor [address], [address] [place] [address] 01/21/2025 2:40 PM EST Office Visit [facility] [address] [place] [address] Jose Rosario MD [address] [place] [address] Scheduled Referrals Name Type Priority [...] documented as of this encounter Care Teams Cardiac Surgeon Relationship Specialty Start Date End Date Cosme Davis MD [address] [place] [address] PCP - General 06/24/20 documented as of this encounter
--- OUTSIDE RECORDS SUMMARY | 2024-11-13 10:23 | XMS_ITS | Encounter Summary ---
Author Organization Healthcare Address [address] [place] [address] Care Team Providers Care Emt/Paramedic Name Role Phone Cosme Davis MD Primary Care Provider [phone] Encounter Details Date Type Department Care Team (Latest Contact Info) Description 11/13/2024 11:23 AM EDT - 11/13/2024 11:59 PM EDT Hospital Encounter [place] [facility] [address], 1st [place] [address] Pain in pelvis Discharge Disposition: Home or [...] and Family Not on file 10/13/2024 Attends [employer] Not on file 10/13 Active Member [...] any time in the past 12 m [facility], were you homeless or living in a senior care (including now)? No 10/13/2024 [facility] Utilities Answer Date Recorded In the past 12 months has th e [facility], gas, oil, or water company threatened to [...] tablet by mouth daily. 08/21/2018 HYDROcodone-acet aminophen ([place]) 5-325 MG tablet 11/02/2024 insulin glargine (Lantus) [...] Info) Description 01/21/2025 1:30 PM EST Appointment [facility] V[facility] Lab [address] Floor [address], [address] [place] [address] 01/21/2025 2:00 PM EST Appointment [facility] [address] Floor [address], [address] [place] [address] 01/21/2025 2:40 PM EST Office Visit [facility] Clinic [address], [address] [place] [address] Jose Rosario MD [address] [facility] [address] [place] [address] documented as of this encounter Procedures Procedure [...] documented as of this encounter Care Teams Emt/Paramedic Relationship Specialty Start Date End Date Cosme Davis MD [address] [place] [address] PCP - General 06/24/20 documented as of this encounter
--- OUTSIDE RECORDS SUMMARY | 2024-12-18 09:15 | XMS_ITS | Encounter Summary ---
Author Organization [employer] ([place], [place], [place], [place], [place]) Address [address] [place] [address] Care Team Providers Care Materials Handling Equipment Operator Name Role Phone Unavailable Primary Care Provider Unavailabl e Encounter Details Date Type Department Care Team (Late st Contact Info) Description 03/28/2018 Transcribed Document [facility] [place] [address] [place] [address] ProviderZion MD [address] [place] [address] Social History Tobacco Use Types [...] - Historical ProviderMD - 03/28/2018 2:01 PM BARREL SCRAPER Care Management Assessment/Plan Entered On: 03/28/2018 14:21 EST Performed On: 03/28/2018 14:01 EST by Ninoska Cuellar Rn-Tire Specialist Ed Care Management Note Anticipated Discharge Date : 04/03/2018 14:00 EST Care Management Note : CM spoke with Dr. Jones this am and he tells CM that pt is ready for discharge from his standpoint and that ID has a plan in place for IV abx. PT does have a PICC in place. Recieved VM from [facility] with [facility] p [phone] stating they are interested in pt. CM went to to speak with pt to discuss bed offers. CM presented bed offers and pt tells CM that she really doesn't want to go to another facility. Pt tells CM that she only wants to go to [facility], as she has been there in the past. [facility] had not make bed offer at this time. BLAKE called and spoke with Gama in admissions at [facility] and she tells CM that per her DON, they do not believe they can meet pt's needs at this time. BLAKE pressed for more information and Gama told CM that she would have DON call her. -CM then spoke with MADELYN Corona at [facility] and she states that pt appears too sick at this time to come to their facility. CM provided her with verbal updates, as well as faxed updates f [phone]. She states they will reevaluate now, knowing [...] pt at this time due to the $[phone] IV rocephin cost through 05/04/[address] Diaz orders. Cm to follow for ongoing d/c planning/needs. Care Management Note Report : Stew Porras, REGULO - 03/27/18 16:25:12 blayne from [facility] ( [facility]) called to make bed offer. bed offers will be presented to pt 03/28. dtr will provide transportationashiron [phone] Stew Porras, REGULO - 03/27/18 15:00:29 spoke to ID who states pt maybe ready for dc as early as 03/28. id and attending PA are recommending SNF. spoke with pt and her dtr, jazmine and informed them of suggestion from drs to dc to snf for iv abx. pt and dtr in agreement and referrlas made via [facility] [place] [facility] following [place].... [place]. Stew Porras, REGULO - 03/27/18 10:34:34 RRS-43 + for [facility] CT consulted and per ID, infection must clear prior to any ant surgical intervention Currnelty on rocephin iv w/bld cx pending Documentation Status Complete : Yes Ninoska Cuellar, Rn-Tire Specialist Ed - 03/28/2018 14:01 EST Electronically signed by [facility], [facility] Conversion Reducing Salon Attendant Cerner at 05/29/2022 8:46 PM CDT documented in this encounter Plan of Treatment Not on file documented as of this encounter Visit Diagnoses Not on filedocumented in this encounter
--- OUTSIDE RECORDS SUMMARY | 2024-12-18 09:15 | XMS_ITS | Encounter Summary ---
Author Organization [employer] ([place], [place], [place], [place], [place]) Address [address] [place] [address] Care Team Providers Care Cable Splicing Technician Name Role Phone Unavailable Primary Care Provider Unavailabl e Encounter Details Date Type Department Care Team (Late st Contact Info) Description 03/29/2018 Transcribed Document [facility] [place] [address] [place] [address] ProviderZion MD [address] [place], [place] [id number] Social History Tobacco Use Types Packs/Day Years Used Date Smoking Tobacco: Never Assessed Comments Unknown Sex and Gender Information Value Date Recorded Sex Assigned at Not on file Legal Sex Female 4:39 PM CDT Gender Identity Not on file Sexual Orientation Not on file documented as of this encounter Miscellaneous Notes * Cerner Conversion Note - Historical ProviderMD - 03/29/2018 1:22 PM FOOD SERVICE EMPLOYEE Discharge Instructions Entered On: 03/29/2018 13:23 EST Performed On: 03/29/2018 13:22 EST by Odalys Bush Rn-Cap Sizer DC Instructions HWD Discharge Summary Sent to : Joshua [phone] Special Instructions : Report: Joshua [phone] Odalys Bush Rn-Cap Sizer - 03/29/2018 13:22 EST Electronically signed by Jorge Alberto [facility] Conversion Briquette Molder Cerner at 05/29/2022 8:39 PM CDT documented in this encounter Plan of Treatment Not on file documented as of this encounter Visit Diagnoses Not on filedocumented in this encounter
--- OUTSIDE RECORDS SUMMARY | 2024-12-18 09:15 | XMS_ITS | Clinical Summary ---
Author Organization [facility] Address [address] [place] [address] Phone Care Team Providers Care Care Clinician Name Role Phone Kar RAJPUT, Willa Molina Unavailable Conditions or Problems Problem Name Problem Code Onset Date Status Entry Date Provider Comment Standard Description Annotate Other obesity due to excess calories 176044585 (SNOMED CT) 06/03 Active 06/03 Sharona Annamaria Simple obesity Nicotine dependence 62747529 (SNOMED CT) 06/03 Active 06/03 Sharona Yin Nicotine dependence Coronary artery disease, S/P CABG 28832169 (SNOMED CT) 04/11 Active 04/11 Elvira Beth Coronary arteriosclerosis ARF due to infection 711310646 (SNOMED CT) 04/11 Active 04/11 Elvira Beth Acute renal failure due to ischemia Heart valve prosthesis, infection/inf lammatory reaction, subsequent encounter T82.6xxD (ICD-10-CM ) 04/11 Active 04/11 Elvira Beth 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, subsequent encounter Acute and subacute bacterial endocarditis 400133214 (SNOMED CT) 04/11 Active 04/11 Elvira Beth Acute and subacute bacterial endocarditis Group B strep sepsis A40.1 (ICD-10-CM ) 04/11 Active 04/11 Elvira Beth Sepsis due to streptococcus, group B DM Type II 76793856 (SNOMED CT) 04/11 Active 04/11 Elvira Beth Type 2 diabetes mellitus Hypoalbuminem ia 774103947 (SNOMED CT) 04/11 Active 04/11 Elvira Beth Hypoalbuminemia Medications Medication Instructions Start Date Stop Date Generic Name NDC Provider CEFTRIAXONE SODIUM 2 GM SOLR 2gm IV Q12hrs/ [facility] [phone] Plan to start at [facility] 04/18/18 to do 2xper day infusion. CEFTRIAXONE SODIUM 81254137804 Frida Morales PENICILLIN V POTASSIUM 250 MG TABS 1 by mouth twice a day for life PENICILLIN V POTASSIUM 92609267579 Gama Diaz MD PENICILLIN V POTASSIUM 250 MG/5ML SOLR 1 by mouth twice a day 30 days PENICILLIN V POTASSIUM 59915843870 Edei Hooks RN PENICILLIN V POTASSIUM 250 MG TABS 1 by mouth twice a day 30 days PENICILLIN V POTASSIUM 06324552870 Edie Hooks RN PENICILLIN V POTASSIUM 250 MG/5ML SOLR 1 by mouth twice a day 30 days PENICILLIN V POTASSIUM 26502289168 Gama Diaz MD PENICILLIN V POTASSIUM 250 MG TABS 1 by mouth twice a day 30 days PENICILLIN V POTASSIUM 99114574030 Gama Diaz MD CARDIZEM 120 MG TABS 1 tab once daily DILTIAZEM HCL 02859423547 Tahira Lucero VITAMIN D (CHOLECALCIFEROL ) 25 MCG (1000 UT) CAPS as instructed CHOLECALCIFEROL 65761398223 Tahira Lucero CEFTRIAXONE SODIUM 2 GM SOLR 2gm IV Q12hrs/ [facility] [phone] Plan to start at [facility] 04/18/18 to do 2xper day infusion. CEFTRIAXONE SODIUM 32664724857 Willa Lakhani RN PRAVASTATIN SODIUM 20 MG TABS Take one by mouth daily PRAVASTATIN SODIUM 77147489928 Garima Restrepo PLAVIX 75 MG TABS Take one by mouth daily CLOPIDOGREL BISULFATE 97826487592 Garima Restrepo NOVOLIN 70/30 (70-30) 100 UNIT/ML SUSP 20 units in AM, 10 units in PM INSULIN NPH ISOPHANE & REGULAR 79490537975 Garima Restrepo [facility] NICOTINE 21 MG/24HR PT24 1 patch daily NICOTINE 38103685046 Garima Floriandox LEVOTHYROXINE SODIUM 25 MCG TABS Take one by mouth daily LEVOTHYROXINE SODIUM 37974594140 Garima Floriandox HUMALOG 100 UNIT/ML SUBCUTANEOUS SOLUTION sliding scale INSULIN LISPRO 94473249004 Garima Floriandox GABAPENTIN 300 MG CAPS Take one by mouth daily GABAPENTIN 11531522222 Garima Floriandox FLORASTOR 250 MG CAPS Take one by mouth daily SACCHAROMYCES BOULARDII 10271810568 Garima Floriandox CELEXA 20 MG TABS Take one by mouth daily CITALOPRAM HYDROBROMIDE 80484718778 Garima Floriandox CARVEDILOL 3.125 MG TABS Take one by mouth daily CARVEDILOL 97676110478 Garima Lazarox ADULT ASPIRIN REGIMEN 81 MG ORAL TABLET DELAYED RELEASE Take one by mouth daily ASPIRIN 03273139997 Garima Lazarox AMBIEN 5 MG TABS Take/use as needed. ZOLPIDEM TARTRATE 85704669449 Garima Floriandox ALPRAZOLAM 0.5 MG TABS Take one by mouth 3 times daily, morning, afternoon and evening. ALPRAZOLAM 43029624382 Garima Floriandox CEFTRIAXONE SODIUM 2 GM SOLR 2gm IV Q24hrs/ [place] [phone] CEFTRIAXONE SODIUM 42075519689 Edie Hooks RN Medications Administered No information [...] [Ratio] by Automated count Lab Report: COMPREHENSIVE [place] TABOLIC PANEL [facility] 47 mL/min/1 .73m2 >60 L Glomerular Filtration Rate Calculation Office Visit: Room 3 MEDS REVIEW Done Documenta tion of current medications (procedure) DIET PRINCIPAL RESEARCH ECONOMIST yes Dietary management education, guidance, and counseling (procedure) ORALTOBACUSE Never Tobacco smoking status SMOK STATUS Current every day smoker Tobacco smoking status Lab Report: COMPREHENSIVE [place] TABOLIC PANEL, MISCELLANEOUS REFERRAL, SED R ... [...] reactive protein [Mass/volume] in Serum or Plasma [employer] C-REACTIVE PROTEIN N GE use only - [...] Date CPT-Cooral Continue oral antibiotics 20 02/03/14 CPT-22350 CMP [id number] CBC with Differential 2019 CPT-42522 C- reactive protein CPT-sl STAT Labs CPT-98371 [facility] [id number] CBC with Differential 2018 CPT-73009 C- reactive protein CPT-Cooral Continue oral antibiotics 20 30/08/23 CPT-01218 CMP [id number] CBC with Differential 2018 CPT-40491 C- reactive protein CPT-Cooral Continue oral antibiotics 20 31/05/23 CPT-PICREM PICC Removal CPT-DC Discontinue IV antibiotics 2 CPT-jodi New Oral Antibiotic CPT-ca Continue IV antibiotics 2018 CPT-45300 CMP [id number] CBC with Differential 2018 CPT-65110 C- reactive protein Vital Signs Date Name [...]
--- OUTSIDE RECORDS SUMMARY | 2024-12-18 09:15 | XMS_ITS | Encounter Summary ---
Author Organization [employer] ([place], [place], [place], [place], [place]) Address [address] [place] [address] Care Team Providers Care Rn Invasive Name Role Phone Unavailable Primary Care Provider Unavailabl e Encounter Details Date Type Department Care Team (Late st Contact Info) Description 03/28/2018 Transcribed Document [facility] Family Medicine [address] [place] [address] ProviderZion MD [address] [place] [address] Social History Tobacco Use [...] - Historical ProviderMD - 03/28/2018 8:22 PM GAME BREEDING FARM MANAGER Care Management Assessment/Plan Entered On: 03/28/2018 20:23 EST Performed On: 03/28/2018 20:22 EST by Ninoska Cuellar Rn-Field Placement Director Ed Care Management Note Anticipated Discharge Date : 04/03/2018 14:00 EST Care Management Note : CM faxed orders to [facility] for IV abx f [phone] per orders. CM will need to call [facility] to notify them of final d/c plan per orders p [phone]. CM to follow for ongoing d/c planning/needs. Care Management Note Report : Ninoska Cuellar, Rn-Field Placement Director Ed - 03/28/18 18:12:15 CM recieved call from Gama at [facility] stating they can take pt at their facility, but not until Saturday, as they now have an agreement with [facility]. CM then spoke with Edie from [facility] and she again confirms they can accept pt at their facility tomorrow. CM updated pt and now pt is agreeable to go to [facility]. She also gave CM permission to speak with Jazmine joshi by phone p [phone]. CM spoke with Jazmine and she is agreeable with plan for [facility], stating its much closer to them, approx 30 min. Pt tells CM that her PCP, Dr. Davis had told her that she was not able to do IV abx from home. Discharge plan will be to go to [facility] in the am. CM updated Dr. Stauffer and he reports he will notify [facility] for tomorrow. CM will cont to follow for ongoing d/c planning/needs. Ninoska Cuellar, Rn-Field Placement Director Ed - 03/28/18 16:01:02 [facility] Clem states home cost for Rocephin is $3.70/wk. She states they may be able to contract with SNF to provide abx at pt's cost. She asked CM to have SNF call Paulo at their office to see about arranging. CM called MADELYN Corona with [facility] and she will call [facility] to see if this can be arranged. Updated BS RN, Ava. CM will cont to follow. Ninoska Cuellar, Rn-Field Placement Director Ed - 03/28/18 14:57:29 Called [facility] and spoke with Chiquita and updated her on IV abx needs. SHe will check cost and call CM back to see if bed offer is still on the table. CM left for [facility] with [facility] to update her, left requesting return phone call. CM updated pt and she appears discouraged that [facility] will not accept her as a pt. She tells CM that she is considering just going home. BLAKE also called Clem with [facility] to argueta abx at home. She states that [facility] may also be able to contract with facility to provide them with abx at their cost. CM faxed info on pt and abx to [facility] f [phone]. CM updated BS RNAva. CM will cont to follow. Ninoska Cuellar, Rn-Field Placement Director Ed - 03/28/18 14:21:[address] Jones this am and he tells CM that pt is ready for discharge from his standpoint and that ID has a plan in place for IV abx. PT does have a PICC in place. Recieved VM from [facility] with [facility] p [phone] stating they are interested in pt. CM went to BS to speak with pt to discuss bed offers. CM presented bed offers and pt tells CM that she really doesn't want to go to another facility. Pt tells CM that she only wants to go to [facility], as she has been there in the past. [facility] had not make bed offer at this time. CM called and spoke with Gama in admissions at [facility] and she tells CM that per her DON, they do not believe they can meet pt's needs at this time. CM pressed for more information and Gama told CM that she would have DON call her. -CM then spoke with MADELYN Corona at [facility] and she states that pt appears too sick at this time to come to their facility. CM provided her with verbal updates, as well as faxed updates f [phone]. She states they will reevaluate now, knowing [...] pt at this time due to the $0830-6989 IV rocephin cost through 05/04/[address] Diaz orders. Cm to follow for ongoing d/c planning/needs. Stew Porras, RN - 03/27/18 16:25:12 edie from [facility] ([phone] ex [phone]) called to make bed offer. bed offers will be presented to pt 03/28. dtr will provide transportationashely [phone] Stew Porras, RN - 03/27/18 15:00:29 spoke to ID who states pt maybe ready for dc as early as 03/28. id and attending PA are recommending SNF. spoke with pt and her dtr, jazmine and informed them of suggestion from drs to dc to snf for iv abx. pt and dtr in agreement and referrlas made via [facility] to the following counties.... [place]. Stew Porras, RN - 03/27/18 10:34:34 RRS-43 + for BROCK CT consulted and per ID, infection must clear prior to any ant surgical intervention Currnelty on rocephin iv w/bld cx pending Documentation Status Complete : Yes Ninoska Cuellar, Rn-Field Placement Director Ed - 03/28/2018 20:22 EST Electronically signed by Jorge Alberto [facility] Conversion Button Reclaimer Cerner at 05/29/2022 8:32 PM CDT documented in this encounter Plan of Treatment Not on file documented as of this encounter Visit Diagnoses Not on filedocumented in this encounter
--- OUTSIDE RECORDS SUMMARY | 2024-12-18 09:15 | XMS_ITS | Encounter Summary ---
Author Organization [employer] ([place], [place], [place], [place], [place]) Address [address] [place] [address] Care Team Providers Care Director Oncology Name Role Phone Unavailable Primary Care Provider Unavailabl e Encounter Details Date Type Department Care Team (Late st Contact Info) Description 03/29/2018 Transcribed Document [facility] Family Medicine [address] [place] [address] ProviderZion MD [address] [place] [address] Social History Tobacco Use Types [...] - Historical ProviderMD - 03/29/2018 5:00 AM BOOK CLEANER Chart Check - Review Order Profile Entered On: 03/29/2018 6:43 EST Performed On: 03/29/2018 5:00 EST by Tiffany Guadalupe RN Chart Check Chart Reviewed Date and Time : 03/29/2018 6:43 EST Powerplans Initiated/Discontinued as Appropriate : Yes All Active Orders Reviewed : Yes Tiffany Guadalupe RN - 03/29/2018 6:43 EST Electronically signed by Jorge Alberto [facility] Conversion Biochemist Cerner at 05/29/2022 8:36 PM CDT documented in this encounter Plan of Treatment Not on file documented as of this encounter Visit Diagnoses Not on filedocumented in this encounter
--- OUTSIDE RECORDS SUMMARY | 2024-12-18 09:15 | XMS_ITS | Encounter Summary ---
Author Organization [employer] ([place], [place], [place], [place], [place]) Address [address] [place] [address] Care Team Providers Care Quill Layer Name Role Phone Unavailable Primary Care Provider Unavailabl e Encounter Details Date Type Department Care Team (Late st Contact Info) Description 03/28/2018 Transcribed Document [facility] [place] [facility] [place] [address] ProviderZion MD [address] [place] [id number] Social History Tobacco Use Types Packs/Day Years Used Date Smoking Tobacco: Never Assessed Comments Unknown Sex and Gender Information Value Date Recorded Sex Assigned at Not on file Legal Sex Female 4:39 PM CDT Gender Identity Not on file Sexual Orientation Not on file documented as of this encounter Miscellaneous Notes * [employer]ner Conversion Note - Zion ProviderMD - 03/28/2018 7:46 AM ADMISSIONS DIRECTOR Patient: ETHAN LOREDO Age: 57 years Sex: [...] Rocephin: 2 Gram, 100 mL/Hr, IV Piggyback, Q94TEiy Tylenol: 650 mg, Oral, Q4H, PRN: Other [...] (MAR 27 17:31) SBP L 89 (MAR 28:) L 89 (MAR 28 06:43) 119 (MAR [...] of motion, Normal strength. Integumentary: Warm, Dry, [place]. Neurologic: Alert, Oriented. Psychiatric: Cooperative, Appropriate mood [...] in 4-[address] Marcano at [facility]. 03/27/18 Options discussed with pt-Definitive Rx would require redo-MV sugery/device explant-reimplant. Surgical risk is high given severe carotid dx. Conservative initial Rx w/ repeat BROCK in 4-6 is reasonable option. CTS to see/EP following. Continue current CV meds. Add Plavix if no surgery. Electronically signed by Jorge Alberto, [facility] Conversion Family Living Educator Cerner at 05/29/2022 8:35 PM CDT documented in this encounter Plan of Treatment Not on file documented as of this encounter Visit Diagnoses Not on filedocumented in this encounter
--- OUTSIDE RECORDS SUMMARY | 2024-12-18 09:15 | XMS_ITS | Encounter Summary ---
Author Organization [employer] ([place], [place], [place], [place], [place]) Address [address] [place] [address] Care Team Providers Care Business Intelligence Director Name Role Phone Unavailable Primary Care Provider Unavailabl e Encounter Details Date Type Department Care Team (Late st Contact Info) Description 03/29/2018 Transcribed Document [facility] Family Medicine [address] [place] [address] ProviderZion MD [address] [place] [address] Social History Tobacco Use Types Packs/Day Years Used Date Smoking Tobacco: Never Assessed Comments Unknown Sex and Gender Information Value Date Recorded Sex Assigned at Not on file Legal Sex Female 4:39 PM CDT Gender Identity Not on file Sexual Orientation Not on file documented as of this encounter Miscellaneous Notes * [employer] Conversion Note - Historical ProviderMD - 03/29/2018 1:22 PM HEARING SPECIALIST Nursing Discharge Summary Entered On: 03/29/2018 13:22 EST Performed On: 03/29/2018 13:22 EST by Odalys Bush Rn-Truck Mechanic Discharge Documentation Discharge, Comment : Report: Joshua [phone] Discharge Summary Sent to : Joshua [phone] Odalys Bush Rn-Truck Mechanic - 03/29/2018 13:22 EST Electronically signed by Jorge Alberto [facility] Conversion Bilingual Operator Cerner at 05/29/2022 8:31 PM CDT documented in this encounter Plan of Treatment Not on file documented as of this encounter Visit Diagnoses Not on filedocumented in this encounter
--- OUTSIDE RECORDS SUMMARY | 2024-12-18 09:15 | XMS_ITS | Encounter Summary ---
Author Organization [employer] ([place], [place], [place], [place], [place]) Address [address] [place] [address] Care Team Providers Care Acquisition Advisor Name Role Phone Unavailable Primary Care Provider Unavailabl e Encounter Details Date Type Department Care Team (Late st Contact Info) Description 03/28/2018 Transcribed Document [facility] Family Medicine [facility] [place] [address] ProviderZion MD [address] [place] [address] Social History Tobacco Use Types Packs/Day Years Used Date Smoking Tobacco: Never Assessed Comments Unknown Sex and Gender Information Value Date Recorded Sex Assigned at Not on file Legal Sex Female 4:39 PM CDT Gender Identity Not on file Sexual Orientation Not on file documented as of this encounter Miscellaneous Notes * [employer] Conversion Note - Historical ProviderMD - 03/28/2018 11:06 AM CLAIM ATTORNEY Patient: ETHAN LOREDO Age: 57 Years Sex: [...]
--- OUTSIDE RECORDS SUMMARY | 2024-12-18 09:15 | XMS_ITS | Encounter Summary ---
Author Organization [employer] ([place], [place], [place], [place], [place]) Address [address] [place] [address] Care Team Providers Care Underground Utility Locator Name Role Phone Unavailable Primary Care Provider Unavailabl e Encounter Details Date Type Department Care Team (Late st Contact Info) Description 03/28/2018 Transcribed Document [facility] Family Medicine [address] [place] [address] ProviderZion MD [address] [place] [address] Social History Tobacco Use Types [...] - Historical ProviderMD - 03/28/2018 6:07 PM TRANSMITTER SUPERVISOR Care Management Assessment/Plan Entered On: 03/28/2018 18:12 EST Performed On: 03/28/2018 18:07 EST by Ninoska Cuellar Rn-Ceiling Cleaner Ed Care Management Note Anticipated Discharge Date : 04/03/2018 14:00 EST Care Management Note : CM recieved call from Gama at [facility] stating they can take pt at their facility, but not until Saturday, as they now have an agreement with [facility]. CM then spoke with Edie from [facility] and she again confirms they can accept pt at their facility tomorrow. CM updated pt and now pt is agreeable to go to [facility]. She also gave CM permission to speak with Jazmine joshi by phone p [phone]. CM spoke with Jazmine and she is agreeable with plan for [facility], stating its much closer to them, approx 30 min. Pt tells CM that her PCP, Dr. Davis had told her that she was not able to do IV abx from home. Discharge plan will be to go to [facility] in the am. BLAKE updated Dr. Stauffer and he reports he will notify [facility] for tomorrow. CM will cont to follow for ongoing d/c planning/needs. Care Management Note Report : Ninoska Cuellar, Rn-Ceiling Cleaner Ed - 03/28/18 16:01:02 [facility] home cost for Luis Daniel is $3.70/wk. She states they may be able to contract with SNF to provide abx at pt's cost. She asked CM to have SNF call Paulo at their office to see about arranging. CM called MADELYN Corona with [facility]. Updated BS RNAva. CM will cont to follow. Ninoska Cuellar, Rn-Ceiling Cleaner Ed - 03/28/18 14:57:29 Called [facility] and spoke with Chiquita and updated her on IV abx needs. SHe will check cost and call CM back to see if bed offer is still on the table. CM left for [facility] with [facility] to update her, left requesting return phone call. CM updated pt and she appears discouraged that [facility] will not accept her as a pt. She tells CM that she is considering just going home. BLAKE also called Clem with [facility] to argueta abx at home. She states that [facility] may also be able to contract with facility to provide them with abx at their cost. CM faxed info on pt and abx to [facility] f [phone]. CM updated BS RNAva. CM will cont to follow. Ninoska Cuellar, Rn-Ceiling Cleaner Ed - 03/28/18 14:21:[address] Jones this and he tells CM that pt is ready for discharge from his standpoint and that ID has a plan in place for IV abx. PT does have a PICC in place. Recieved VM from [facility] with [facility] p [phone] stating they are interested in pt. CM went to BS to speak with pt to discuss bed offers. CM presented bed offers and pt tells CM that she really doesn't want to go to another facility. Pt tells CM that she only wants to go to [facility], as she has been there in the past. [facility] had not make bed offer at this time. CM called and spoke with Gama in admissions at [facility] and she tells CM that per her DON, they do not believe they can meet pt's needs at this time. CM pressed for more information and Gama told CM that she would have DON call her. -CM then spoke with MADELYN Corona at [facility] and she states that pt appears too sick at this time to come to their facility. CM provided her with verbal updates, as well as faxed updates f [phone]. She states they will reevaluate now, knowing [...] pt at this time due to the $9061-4968 IV rocephin cost through 05/04/[address] Diaz orders. Cm to follow for ongoing d/c planning/needs. Stew Porras RN - 03/27/18 16:25:12 edie from [facility] ( ex [phone]) called to make bed offer. bed offers will be presented to pt 03/28. dtr will provide transportationashspelter [phone] Stew Porras RN - 03/27/18 15:00:29 spoke to ID who states pt maybe ready for dc as early as 03/28. id and attending PA are recommending SNF. spoke with pt and her dtr, jazmine and informed them of suggestion from drs to dc to snf for iv abx. pt and dtr in agreement and referrlas made via [facility] the following [place].... [place]. Stew Porras RN - 03/27/18 10:34:34 RRS-43 + for BROCK CT consulted and per ID, infection must clear prior to any ant surgical intervention Currnelty on rocephin iv w/bld cx pending Documentation Status Complete : Yes Ninoska Cuellar, Rn-Ceiling Cleaner Ed - 03/28/2018 18:07 EST Electronically signed by Jorge Alberto, [facility] Conversion Punchboard Stuffer Cerner at 05/29/2022 8:35 PM CDT documented in this encounter Plan of Treatment Not on file documented as of this encounter Visit Diagnoses Not on filedocumented in this encounter
--- OUTSIDE RECORDS SUMMARY | 2024-12-18 09:15 | XMS_ITS | Encounter Summary ---
Author Organization Healthcare Address [address] [place] [address] Care Team Providers Care Lockstitch Cup Setter Name Role Phone Cosme Davis MD Primary Care Provider [phone] Encounter Details Date Type Department Care Team [...] and Family Not on file 10/13/2024 Attends Voodoo Services Not on file 10/13 Active Member [...] any time in the past 12 m [facility], were you homeless or living in a usp (including now)? No 10/13/2024 [facility] Utilities Answer Date Recorded In the past [...] Info) Description 01/21/2025 1:30 PM EST Appointment [facility] [address] 5th Floor [address] [place] [address] 01/21/2025 2:00 PM EST Appointment [facility] [address] [place] [address] 01/21/2025 2:40 PM EST Office Visit [facility] [address] 5th Floor [address] [place] [address] Jose Rosario MD [address] [place] [id number] documented as of this encounter Visit Diagnoses Not on filedocumented in this encounter Additional Health Concerns Infection Onset Date Last Indicated Resolved Time ESBL 10/13/2024 10/13/2024 Assessment Noted Time A Body Mass Index follow-up plan has been documented for the patient 10/30/2024 1:27 PM EDT documented as of this encounter Care Teams Lockstitch Cup Setter Relationship Specialty Start Date End Date Cosme Davis MD [address] [place] [address] PCP - General 06/24/20 documented as of this encounter
--- OUTSIDE RECORDS SUMMARY | 2024-12-18 09:15 | XMS_ITS | Encounter Summary ---
Author Organization [employer] ([place], [place], [place], [place], [place]) Address [address] [place] [address] Care Team Providers Care Recruiting Associate Name Role Phone Unavailable Primary Care Provider Unavailabl e Encounter Details Date Type Department Care Team (Late st Contact Info) Description 03/28/2018 Transcribed Document [facility] [place] [address] [place] [address] ProviderZion MD [address] [place] [address] Social History Tobacco Use Types [...] - Historical ProviderMD - 03/28/2018 5:00 PM YARD LABORER Chart Check - Review Order Profile Entered On: 03/28/2018 16:43 EST Performed On: 03/28/2018 17:00 EST by Ava Schmitt RN Chart Check Chart Reviewed Date and Time : 03/28/2018 16:43 EST Ava Schmitt RN - 03/28/2018 16:43 EST Electronically signed by Jorge Alberto [facility] Conversion Natural Sciences Professor Cerner at 05/29/2022 8:40 PM CDT documented in this encounter Plan of Treatment Not on file documented as of this encounter Visit Diagnoses Not on filedocumented in this encounter
--- OUTSIDE RECORDS SUMMARY | 2024-12-18 09:15 | XMS_ITS | Encounter Summary ---
Author Organization [employer] ([place], [place], [place], [place], [place]) Address [address] [place] [address] Care Team Providers Care Gold Assayer Name Role Phone Unavailable Primary Care Provider Unavailabl e Encounter Details Date Type Department Care Team (Late st Contact Info) Description 03/29/2018 Transcribed Document [facility] [address] [place] [address] ProviderZion MD [address] [place] [id number] Social History Tobacco Use Types Packs/Day Years Used Date Smoking Tobacco: Never Assessed Comments Unknown Sex and Gender Information Value Date Recorded Sex Assigned at Not on file Legal Sex Female 4:39 PM CDT Gender Identity Not on file Sexual Orientation Not on file documented as of this encounter Miscellaneous Notes * Cerner Conversion Note - Historical ProviderMD - 03/29/2018 2:00 AM CASINO GAMING WORKER Senior Budget Analyst Details Entered On: 03/29/2018 6:43 EST Performed [...]
--- OUTSIDE RECORDS SUMMARY | 2024-12-18 09:15 | XMS_ITS | Encounter Summary ---
Author Organization [employer] ([place], [place], [place], [place], [place]) Address [address] [place] [address] Care Team Providers Care Patient Assessment Coordinator Name Role Phone Unavailable Primary Care Provider Unavailabl e Encounter Details Date Type Department Care Team (Late st Contact Info) Description 03/29/2018 Transcribed Document [facility] [place] Medicine [address] [place] [address] ProviderZion MD [address] [place] [address] Social History Tobacco Use Types Packs/Day Years Used Date Smoking Tobacco: Never Assessed Comments Unknown Sex and Gender Information Value Date Recorded Sex Assigned at Not on file Legal Sex Female 4:39 PM CDT Gender Identity Not on file Sexual Orientation Not on file documented as of this encounter Miscellaneous Notes * Cerner Conversion Note - Zion ProviderMD - 03/29/2018 3:30 PM LOFT WORKER HEAD Care Management Assessment/Plan Entered On: 03/29/2018 15:31 EST Performed On: 03/29/2018 15:30 EST by Odalys Bush Rn-Cia AgentMetal Hardener Note Anticipated Discharge Date : 03/30/2018 14:00 EST Care Management Note : Patient discharge summary sent through [facility]. Care Management Note Report : Odalys Bush Rn-Cia Agent - 03/29/18 13:22:06 Confirmed with [facility] that patient can transfer today [phone]; [phone]. Spoke with patient's daughter Jazmine [phone] who plans to transport[address] Dr. Hamilton advised and dishcarge pharmacy aware. Patient should be ready to transport by 15:00. Ninoska Cuellar Rn-Cia Agent Ed - 03/28/18 20:23:22 CM faxed orders to [facility] for IV abx f [phone] per md orders. CM will need to call [facility] to notify them of final d/c plan per MD orders p [phone]. CM to follow for ongoing d/c planning/needs. Ninoska Cuellar, Rn-Cia Agent Ed - 03/28/18 18:12:15 CM recieved call from Gama at [facility] stating they can take pt at their facility, but not until Saturday, as they now have an agreement with [facility]. CM then spoke with Edie from [facility] and she again confirms they can accept pt at their facility tomorrow. CM updated pt and now pt is agreeable to go to [facility]. She also gave CM permission to speak with Jazmine joshi by phone p [phone]. CM spoke with Jazmine and she is agreeable with plan for [facility], stating its much closer to them, approx 30 min. Pt tells CM that her PCP, Dr. Davis had told her that she was not able to do IV abx from home. Discharge plan will be to go to [facility] in the am. CM updated Dr. Stauffer and he reports he will notify [facility] for tomorrow. CM will cont to follow for ongoing d/c planning/needs. Ninoska Cuellar, Rn-Cia Agent Ed - 03/28/18 16:01:02 [facility] Clem states home cost for Rocephin is $3.70/wk. She states they may be able to contract with SNF to provide abx at pt's cost. She asked CM to have SNF call Paulo at their office to see about arranging. CM called MADELYN Corona with [facility] and she will call [facility] to see if this can be arranged. Updated BS RNAva. CM will cont to follow. Ninoska Cuellar, Rn-Cia Agent Ed - 03/28/18 14:57:29 Called [facility] and spoke with Chiquita and updated her on IV abx needs. SHe will check cost and call CM back to see if bed offer is still on the table. CM left for [facility] with [facility] to update her, left requesting return phone call. CM updated pt and she appears discouraged that [facility] will not accept her as a pt. She tells CM that she is considering just going home. BLAKE also called Mariahjesus with [facility] to argueta abx at home. She states that [facility] may also be able to contract with facility to provide them with abx at their cost. CM faxed info on pt and abx to [facility] f [phone]. CM updated BS RN, Ava. CM will cont to follow. Ninoska Cuellar, Rn-Cia Agent Ed - 03/28/18 14:21:[address] Jones this am and he tells CM that pt is ready for discharge from his standpoint and that ID has a plan in place for IV abx. PT does have a PICC in place. Recieved VM from [facility] with [facility] p [phone] stating they are interested in pt. CM went to BS to speak with pt to discuss bed offers. CM presented bed offers and pt tells CM that she really doesn't want to go to another facility. Pt tells CM that she only wants to go to [facility], as she has been there in the past. [facility] had not make bed offer at this time. BLAKE called and spoke with Gama in admissions at [facility] and she tells CM that per her DON, they do not believe they can meet pt's needs at this time. CM pressed for more information and Gama told CM that she would have DON call her. -BLAKE then spoke with MADELYN Corona at [facility] and she states that pt appears too sick at this time to come to their facility. BLAKE provided her with verbal updates, as well as faxed updates f [phone]. She states they will reevaluate now, knowing [...] pt at this time due to the $4879-5053 IV rocephin cost through 05/04/[address] Diaz orders. Cm to follow for ongoing d/c planning/needs. Stew Porras, RN - 03/27/18 16:25:12 edie from [facility] ( [phone]) called to make bed offer. bed offers will be presented to pt 03/28. [phone] Stew Porras, RN - 03/27/18 15:00:29 spoke to ID who states pt maybe ready for dc as early as 03/28. id and attending PA are recommending SNF. spoke with pt and her dtr, jazmine and informed them of suggestion from drs to dc to snf for iv abx. pt and dtr in agreement and [facility] [place].... [place]. Stew Porras, REGULO - 03/27/18 10:34:34 RRS-43 + for BROCK CT consulted and per ID, infection must clear prior to any ant surgical intervention Currnelty on rocephin iv w/bld cx pending Documentation Status Complete : Yes Odalys Bush Rn-Cia Agent - 03/29/2018 15:30 EST Info/List/Choices Provided Patient Offered Choice/Affiliations Explained : Yes List/Info Provided Pt/Fam/Support Person : alf facilities Odalys Bush Rn-Cia Agent - 03/29/2018 15:30 EST Final Discharge Disposition Note-CM Final Discharge Disposition Note-CM : Transport by Family. Discharge To Care Management : SNF with Medicare Certification-03 Name of Receiving Facility/Provider- : [facility] Odalys Bush Rn-Cia Agent - 03/29/2018 15:30 EST documented in this encounter Plan of Treatment Not on file documented as of this encounter Visit Diagnoses Not on filedocumented in this encounter
--- OUTSIDE RECORDS SUMMARY | 2024-12-18 09:15 | XMS_ITS | Encounter Summary ---
Author Organization Healthcare Address [address] [place] [address] Care Team Providers Care Melt Room Operator Name Role Phone Cosme Davis MD Primary Care Provider [phone] Encounter Details Date Type Department Care Team [...] and Family Not on file 10/13/2024 Attends [employer]astrian[employer] Services Not on file 10/13 Active Member [...] were you homeless or living in a correction (including now)? No 10/13/2024 [facility] Utilities Answer Date Recorded In [...] [facility] Lab [address] 5[address] [place] [address] 01/21/2025 2:00 PM EST Appointment [facility] [address] 5[address] [place] [address] 01/21/2025 2:40 PM EST Office Visit [facility] [address] 5[address] [place] [address] Jose Rosario MD [address] [facility] [facility] [address] [address] [place] [address] documented as of this encounter [...] documented as of this encounter Care Teams Melt Room Operator Relationship Specialty Start Date End Date Cosme Davis MD [address] [place] [address] PCP - General 06/24/20 documented as of this encounter
--- OUTSIDE RECORDS SUMMARY | 2024-12-18 09:15 | XMS_ITS | Encounter Summary ---
Author Organization [employer] ([place], [place], [place], [place], [place]) Address [address] [place] [address] Care Team Providers Care Parts Representative Name Role Phone Unavailable Primary Care Provider Unavailabl e Encounter Details Date Type Department Care Team (Late st Contact Info) Description 03/28/2018 Transcribed Document [facility] [place] [address] [place] [address] ProviderZion MD [address] [place], [place] [id number] Social History Tobacco Use Types Packs/Day Years Used Date Smoking Tobacco: Never Assessed Comments Unknown Sex and Gender Information Value Date Recorded Sex Assigned at Not on file Legal Sex Female 4:39 PM CDT Gender Identity Not on file Sexual Orientation Not on file documented as of this encounter Miscellaneous Notes * Cerner Conversion Note - Historical ProviderMD - 03/28/2018 3:56 PM HEADER BOSS Care Management Assessment/Plan Entered On: 03/28/2018 16:01 EST Performed On: 03/28/2018 15:56 EST by Ninoska Cuellar Rn-Drawing Supervisor Ed Care Management Note Anticipated Discharge Date : 04/03/2018 14:00 EST Care Management Note : [facility] Mariahjeuss states home cost for Luis Daniel is [...] Care Management Note Report : Ninoska Cuellar Rn-Drawing Supervisor Ed - 03/28/18 14:57:29 Called [facility] and spoke with Chiquita and updated her on IV abx needs. SHe will check cost and call CM back to see if bed offer is still on the table. CM left for [facility] with [facility] to update her, left requesting return phone call. CM updated pt and she appears discouraged that [facility] will not accept her as a pt. She tells CM that she is considering just going home. CM also called Clem with [facility] to argueta abx at home. [facility] with facility to provide them with abx at their cost. CM faxed info on pt and abx to [facility] f [phone]. CM updated BS RN, Ava. CM will cont to follow. Ninoska Cuellar, Rn-Drawing Supervisor Ed - 03/28/18 14:21:[address] Jones this and he tells CM that pt is ready for discharge from his standpoint and that ID has a plan in place for IV abx. PT does have a PICC in place. Recieved VM from [facility] with [facility] p [phone] stating they are interested in pt. CM went to BS to speak with pt to discuss bed offers. CM presented bed offers and pt tells CM that she really doesn't want to go to another facility. Pt tells CM that she only wants to go to [facility], as she has been there in the past. [facility] had not make bed offer at this time. BLAKE called and spoke with Gama in admissions at [facility] and she tells CM that per her DON, they do not believe they can meet pt's needs at this time. BLAKE pressed for more information and Gama told CM that she would have DON call her. -BLAKE then spoke with MADELYN Corona at [facility] and she states that pt appears too sick at this time to come to their facility. BLAKE provided her with verbal updates, as well as faxed updates f [phone]. She states they will reevaluate now, knowing abx needs. She asked for bld cx results and CM called microbiology dept and was told that bld cx x2 from 03/23 were still negative, but would not be complete until this evening. CM informed facility of this information. CM then recieved callback from [facility] with admissions who states after rereview, they will not be able to take pt at this time due to the $1240-6228 IV rocephin cost through 05/04/[address] Diaz orders. Cm to follow for ongoing d/c planning/needs. Stew Porras, RN - 03/27/18 16:25:12 blayne from [facility] [phone]) called to make bed offer. bed offers will be presented to pt 03/28. dtr [place] [phone] Stew Porras, REGULO - 03/27/18 15:00:29 spoke [...] counseling center to the following counties.... [place]. Stew Porras, REGULO - 03/27/18 10:34:34 RRS-43 + for BROCK CT consulted and per ID, infection must clear prior to any ant surgical intervention Currnelty on rocephin iv w/bld cx pending Documentation Status Complete : Yes Ninoska Cuellar, Rn-Drawing Supervisor Ed - 03/28/2018 15:56 EST Electronically signed by Vinayak Azul Conversion Rehab/Pre Vocational Counselor Cerner at 05/29/2022 8:36 PM CDT documented in this encounter Plan of Treatment Not on file documented as of this encounter Visit Diagnoses Not on filedocumented in this encounter
--- OUTSIDE RECORDS SUMMARY | 2024-12-18 09:15 | XMS_ITS | Clinical Summary ---
Author Organization [facility] Address [facility] [place] [address] Care Team Providers Care Revenue Cycle Administrator Name Role Phone Pcp, No Primary Care Provider [phone] Source Comments This information has been disclosed [...] therelease of HIV test results or diagnoses. [id number] Allergies No known active allergies Medications [...] In the past 12 months has e [employer], gas, oil, or water [employer] threatened to shut off services in your [...] any time in the past 12 m [facility], were you homeless or living in a residential (including now)? No 03/05/2024 Comments Unknown Sex [...] ORDERABLES Fin al Result Performing Organization Address [facility] Co de Phone Number [facility] [address] [facility] * Protein / creatinine ratio, urine (03/07/2024 11:26 PM EST) Creatinine, Urine 28.30 mg/dL 03/07/2024 11:52 PM EST [facility] Comment:Reference range not established for this test. Total Protein, Ur 52 mg/dL 03/07/2024 11:52 PM EST [facility] Comment:Reference range not established for this test. Prot/Creat Ratio, Ur 1.84 ratio 03/07/2024 11:52 PM EST [facility] Urine 03/07/2024 11:2 6 PM EST 03/07/2024 11:36 PM EST Tate Castro MD URINE ORDERABLES Final R esult Performing Organization Address [facility] Co de Phone Number [facility] [address] * (ABNORMAL) Thyroid Function Colbert (03/06/2024 1:44 PM EST) TSH 6.15(H) 0.45 - 4.12 uIU/mL 03/06/2024 2:33 PM EST [facility] Serum 03/06/2024 1:44 PM EST 03/06/2024 1:50 PM EST us Angelo Chaudhry CNP LAB BLOOD ORDERABLES Final Result Performing Organization Address [facility] Co de Phone Number [facility] [address] * (ABNORMAL) Hemoglobin A1c (03/06/2024 5:42 AM EST) Hemoglobin A1C 6.4(H) 4.0 - 5.6 % 03/06/2024 1:13 PM EST [facility] Comment: Hemoglobin A1c Interpretation Guidelines: Normal: [...] ORDERABLES Bindu l Result Performing Organization Address City/[facility] Co de Phone Number [facility] [address] from Last 3 Months or Most Recently Relevant to Health Maintenance Insurance [employer] GOLD [employer]US MEDICARE [facility] Care Address: [address] [address] [place] [address] Advance Directives For more information, please contact: [phone] Documents on File Type Date Recorded Patient Barrel Scraper Expl anation Durable Power of Home Assessment Nurse - scan 03/11/2024 * Full Code (Latest Code Status on File) Date Activated Date Inactivated Comments 03/05/2024 10:20 PM 03/09/2024 11:04 PM Care Teams Revenue Cycle Administrator Relationship Specialty Start Date End Date Pcp, No [address] [place] [address] PCP - General 03/05/24
--- OUTSIDE RECORDS SUMMARY | 2024-12-18 09:15 | XMS_ITS | Encounter Summary ---
Author Organization [employer] ([place], [place], [place], [place], [place]) Address [address] [place] [address] Care Team Providers Care Prepress Operator Name Role Phone Unavailable Primary Care Provider Unavailabl e Encounter Details Date Type Department Care Team (Late st Contact Info) Description 03/28/2018 Transcribed Document [facility] [place] Family Medicine [address] [place] [address] ProviderZion MD [address] [place], [place] [id number] Social History Tobacco Use Types Packs/Day Years Used Date Smoking Tobacco: Never Assessed Comments Unknown Sex and Gender Information Value Date Recorded Sex Assigned at Not on file Legal Sex Female 4:39 PM CDT Gender Identity Not on file Sexual Orientation Not on file documented as of this encounter Miscellaneous Notes * [employer]ner Conversion Note - Historical ProviderMD - 03/28/2018 5:00 AM ENVIRONMENTAL RESOURCE SPECIALIST Chart Check - Review Order Profile [...]
--- OUTSIDE RECORDS SUMMARY | 2024-12-18 09:15 | XMS_ITS | Encounter Summary ---
Author Organization [employer] ([place], [place], [place], [place], [place]) Address [address] [place] [address] Care Team Providers Care Oncology Pharmacist Name Role Phone Unavailable Primary Care Provider Unavailabl e Encounter Details Date Type Department Care Team (Late st Contact Info) Description 03/28/2018 Transcribed Document [facility] [place] [facility] [place] [address] ProviderZion MD [address] [place] [address] [phone] Social History Tobacco Use Types Packs/Day Years Used Date Smoking Tobacco: Never Assessed Comments Unknown Sex and Gender Information Value Date Recorded Sex Assigned at Not on file Legal Sex Female 4:39 PM CDT Gender Identity Not on file Sexual Orientation Not on file documented as of this encounter Miscellaneous Notes * Cerner Conversion Note - Zion ProviderMD - 03/28/2018 12:56 PM SENIOR QUALITY ENGINEER Patient: ETHAN CRONIN Age: 57 years Sex: Female : 1960 Associated Diagnoses: None Author: CARROLL HIGH MD-INF Basic Information CC: Sepsis bacteremia 03/19/18 4/4 bottles for Group b strep ([facility]), mitral prosthetic valve endocarditis History of Present Illness 57-year-old white female with history of bladder cancer, atrial flutter, pacemaker placement 2016, hypertension, DM2, COPD, pancreatitis, who recently had blood cultures obtained at [facility] on 03/19/18 for fever which were positive in 4 out of 4 bottles for group B Streptococcus. Patient was to start IV antibiotics but was found to have bradycardia and was admitted to [facility] on 03/23/17. I was consulted on 03/25/17. The patient had been started on vancomycin and Rocephin. Urine culture obtained at [facility] was positive for multiple [...] cefTRIAXone (Rocephin) - 2 Gram, IV Piggyback, [id number], infuse over 30 Minute(s), Routine Anticoagulant heparin [...] L 56 (MAR 28 06:43) 83 (MAR 27:31) MAP 72 (MAR 28 08:56) 66 (MAR [...] Normal strength, No tenderness. Integumentary: Warm, Dry, [place], No pallor, No rash, Left chest wall [...] 23) Troponin <0.015 (MAR 23) , ACC: [id number] ORDER: Culture Blood DATE: 03/23/2018 17:49 SOURCE: Blood SITE: Reports Pre 03/27/2018 23:01 No growth at 4 days. Pre 03/26/2018 23:01 No growth at 3 days. Pre 03/25/2018 23:01 No growth at 2 days. Pre 03/24/2018 23:02 No growth at 1 day. Pre 03/24/2018 16:03 Culture less than 24 Hrs old == ACC: [id number] ORDER: Culture Blood DATE: 03/23/2018 17:49 SOURCE: [...] of 4 blood culture bottles positive at [facility] (spoke to Maurice Spencer, at [facility]). BROCK consistent with mitral valve endocarditis, prosthetic. New finding. CT scan of the abdomen and pelvis 2/12 unremarkable. 1a. Group B streptococcus mitral valve [...] Dr. Perez's service, cardiology, and Dr. Alan.. auto leasing manager: Please arrange for outpatient IV antibiotics with Rocephin 2 g IV every 12 hours until 05/04/18. Follow CBC, CMP, CRP weekly while on IV antibiotics. Fax orders to [phone], and call [phone] with final arrangements. Arrange for follow-up with me in 2 weeks post discharge. documented in this encounter Plan of Treatment Not on file documented as of this encounter Visit Diagnoses Not on filedocumented in this encounter
--- OUTSIDE RECORDS SUMMARY | 2024-12-18 09:15 | XMS_ITS | Encounter Summary ---
Author Organization [employer] ([place], [place], [place], [place], [place]) Address [address] [place] [address] Care Team Providers Care Legislative Analyst Name Role Phone Unavailable Primary Care Provider Unavailabl e Encounter Details Date Type Department Care Team (Late st Contact Info) Description 03/28/2018 Transcribed Document [facility] [place] [address] [place] [address] ProviderZion MD [address] [place], [place] [phone] Social History Tobacco Use Types Packs/Day Years Used Date Smoking Tobacco: Never Assessed Comments Unknown Sex and Gender Information Value Date Recorded Sex Assigned at Not on file Legal Sex Female 4:39 PM CDT Gender Identity Not on file Sexual Orientation Not on file documented as of this encounter Miscellaneous Notes * Cerner Conversion Note - Zion ProviderMD - 03/28/2018 6:04 PM BUCKET OPERATOR Patient: ETHAN LOREDO Age: 57 years Sex: [...] Rocephin: 2 Gram, 100 mL/Hr, IV Piggyback, [id number] Tylenol: 650 mg, Oral, Q4H, PRN: Other [...] Oral, Daily cefTRIAXone 2 Gram, IV Piggyback, [id number] citalopram 20 mg tab 20 mg 1 [...] SpO2 97 (MAR 15 06:43) 95 (MAR 14 22:29) 97 (MAR 15 06:43) General: Alert and oriented, appears older [...] (B 12) 9.3 (FEB 11) HB 12.8 (B 15) 11.3 (B 13) 11.4 (B 12) L 9.9 (FEB 11) HCT 41.9 (B 15) 36.0 (B 13) 35.4 (FEB 12) L 30.9 (FEB 11) Plt H 445 (B 15) H 462 (B 13) H 429 (B 12) 348 (FEB 11) Na 138 (B 15) 136 (B 14) 139 (B 13) 137 (FEB 12) K 4.1 (B [...] 15) H 137 (B 14) H 140 (B 13) H 108 (B 12) Ca 9.3 (B 15) 9.0 (B 14) 8.6 (B 13) 8.8 (B 12) Lactic 1.1 (MAR 13) 1.4 (B 10) PT 11.3 (B 10) INR 1.0 (B 10) AST 23 (B ) 29 (B 10) ALT 32 (MAR 26) [...] Discussed w RN plan..discharge to rehab tomorrow Electronically signed by Vinayak Azul Conversion Records And Tape Recordings Engineer Cerner at 05/29/2022 8:41 PM CDT documented in this encounter Plan of Treatment Not on file documented as of this encounter Visit Diagnoses Not on filedocumented in this encounter
--- OUTSIDE RECORDS SUMMARY | 2024-12-18 09:16 | XMS_ITS | Encounter Summary ---
Author Organization [employer] ([place], [place], [place], [place], [place]) Address [address] [place] [id number] Care Team Providers Care Cafe Server Name Role Phone Unavailable Primary Care Provider Unavailabl e Encounter Details Date Type Department Care Team (Late st Contact Info) Description 03/27/2018 Transcribed Document [facility] [place] [address] [place] [address] ProviderZion MD [address] [place] [phone] Social History Tobacco Use Types Packs/Day Years Used Date Smoking Tobacco: Never Assessed Comments Unknown Sex and Gender Information Value Date Recorded Sex Assigned at Not on file Legal Sex Female 4:39 PM CDT Gender Identity Not on file Sexual Orientation Not on file documented as of this encounter Miscellaneous Notes * Cerner Conversion Note - Zion ProviderMD - 03/27/2018 9:26 AM TAP DANCER Patient: ETHAN CRONIN Age: 57 years Sex: Female : 1960 Associated Diagnoses: None Author: AJAY MARCANO MD-CAR Basic Information PCP: Unknown Ticket Puller: Chief Complaint 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 Social & Psychosocial Habits Tobacco 02/17/2015 Tobacco Use Within Last Twelve Months Cigarettes Smoking Status Current every day smoker Years of Tobacco Use 40 Packs/Tins Daily 1 Smoking Cessation Information Provided Yes Past Medical History: Active CAD - Coronary artery disease (7295897629) Cardiomyopathy (223647839) HLD - Hyperlipidemia (823549941) HTN - Hypertension (8668517555) Resolved COPD - Chronic obstructive pulmonary disease (257436898): Resolved. Family History: No family history items have been selected or recorded. Procedure history: CABG in 2016 at 55 Years. MAZE in 2016 at 55 Years. Cholecystectomy; (86787). Comments: 02/17/2015 11:52 - SUSI BOWMAN RN 2006 cystectomy with ileal conduit. Comments: 02/17/2015 11:52 - SUSI BOWMAN RN 2006 hysterectomy. Comments: 02/17/2015 11:52 - SUSI BOWMAN RN 2007 Mitral Valve replacment; bioprosthetic. umbilical hernia repair. [...] of motion, Normal strength. Integumentary: Warm, Dry, [place]. Neurologic: Alert, Oriented. Psychiatric: Cooperative, Appropriate mood & affect. Review / Management MAR 27 07:36 136 104 H 33 / H 137 4.0 L 20 0.90 \ Cardiac Markers (Current Encounter/Past 24 Hours) No Cardiac Marker Results Found (Past 24 Hours) Blood Gases (Current Encounter/Past 24 Hours) No Blood Gas Results Found (Past 24 Hours) Radiology Results (Last 48 hours) [id number] -- 03/23/2018 17:08 CT Abdomen Pelvis WO [...] 26) 11.4 (MAR 25) L 9.9 (MAR 11) L 10.8 (MAR 10) HCT 36.0 (MAR 26) 35.4 (MAR 12) L 30.9 (MAR 11) 35.0 (B 10) Plt H 462 (MAR 26) H 429 (MAR 12) 348 (FEB 11) H 379 (FEB [...] in 2015. Hx of [employer] BIV ICD 2015 Carotid Stenosis L ICA 100% R ICA [...]
--- OUTSIDE RECORDS SUMMARY | 2024-12-18 09:16 | XMS_ITS | Encounter Summary ---
Author Organization [employer] ([place], [place], [place], [place], [place]) Address [address] [place] [address] Care Team Providers Care Vineyardist Name Role Phone Unavailable Primary Care Provider Unavailabl e Encounter Details Date Type Department Care Team (Late st Contact Info) Description 03/26/2018 Transcribed Document [facility] [place] Medicine [address] [place] [address] ProviderZion MD [address] [place] [address] Social History Tobacco Use Types [...] - Historical ProviderMD - 03/26/2018 2:00 AM RICE FARMWORKER Bolt Machine Operator Details Entered On: 03/26/2018 1:20 EST Performed On: 03/26/2018 2:00 EST by Tasia Ewing Rn-Resource Order Details Transport Mode Order Detail [...]
--- OUTSIDE RECORDS SUMMARY | 2024-12-18 09:16 | XMS_ITS | Encounter Summary ---
Author Organization [employer] ([place], [place], [place], [place], [place]) Address [address] [place] [address] Care Team Providers Care Shrimper Name Role Phone Unavailable Primary Care Provider Unavailabl e Encounter Details Date Type Department Care Team (Late st Contact Info) Description 03/27/[address] [facility] [place] [facility] [place] [address] ProviderZion MD [address] [place] [address] [phone] Social History Tobacco Use Types Packs/Day Years Used Date Smoking Tobacco: Never Assessed Comments Unknown Sex and Gender Information Value Date Recorded Sex Assigned at Not on file Legal Sex Female 4:39 PM CDT Gender Identity Not on file Sexual Orientation Not on file documented as of this encounter Miscellaneous Notes * Cerner Conversion Note - Historical ProviderMD - 03/27/2018 9:05 AM VULNERABILITY RESEARCHER Patient: ETHAN LOREDO Age: 57 Years Sex: [...]
--- OUTSIDE RECORDS SUMMARY | 2024-12-18 09:16 | XMS_ITS | Encounter Summary ---
Author Organization [employer] ([place], [place], [place], [place], [place]) Address [address] [place] [address] Care Team Providers Care Truck And Transport Mechanic Name Role Phone Unavailable Primary Care Provider Unavailabl e Encounter Details Date Type Department Care Team (Late st Contact Info) Description 03/27/2018 Transcribed Document [facility] [place] [facility] [place] [address] ProviderZion MD [address] [place] [address] Social History Tobacco Use Types [...] - Historical ProviderMD - 03/27/2018 2:54 PM CANCER GENETICS ASSISTANT Care Management Assessment/Plan Entered On: 03/27/2018 15:00 EST Performed On: 03/27/2018 14:54 EST by Stew Porras RN Care Management [...] Stew Porras, RN - 03/27/2018 14:54 EST documented in this encounter Plan of Treatment Not on file documented as of this encounter Visit Diagnoses Not on filedocumented in this encounter
--- OUTSIDE RECORDS SUMMARY | 2024-12-18 09:16 | XMS_ITS | Encounter Summary ---
Author Organization [employer] ([place], [place], [place], [place], [place]) Address [address] [place] [address] Care Team Providers Care Nutritional Yeast Supervisor Name Role Phone Unavailable Primary Care Provider Unavailabl e Encounter Details Date Type Department Care Team (Late st Contact Info) Description 03/27/2018 Transcribed Document [facility] [place] Family Medicine [address] [place] [address] ProviderZion MD [address] [place] [address] Social History Tobacco Use Types [...] - Historical ProviderMD - 03/27/2018 5:00 AM DIGITAL COMMUNITY MANAGER Chart Check - Review Order Profile Entered On: 03/27/2018 5:00 EST Performed On: 03/27/2018 5:00 EST by Gabriela Reyes RN Chart Check Chart Reviewed Date and Time : 03/27/2018 5:05 EST Powerplans Initiated/Discontinued as Appropriate : Yes All Active Orders Reviewed : Yes Gabriela Reyes, REGULO - 03/27/2018 5:00 EST Electronically signed by Vinayak Azul Conversion Contract Administration Manager Cerner at 05/29/2022 8:44 PM CDT documented in this encounter Plan of Treatment Not on file documented as of this encounter Visit Diagnoses Not on filedocumented in this encounter
--- OUTSIDE RECORDS SUMMARY | 2024-12-18 09:16 | XMS_ITS | Encounter Summary ---
Author Organization [employer] ([place], [place], [place], [place], [place]) Address [address] [place] [address] Care Team Providers Care Push Bench Operator Helper Name Role Phone Unavailable Primary Care Provider Unavailabl e Encounter Details Date Type Department Care Team (Late st Contact Info) Description 03/25/2018 Transcribed Document [facility] [place] [address] [place] [address] ProviderZion MD [address] [place], [place] [phone] Social History Tobacco Use Types Packs/Day Years Used Date Smoking Tobacco: Never Assessed Comments Unknown Sex and Gender Information Value Date Recorded Sex Assigned at Not on file Legal Sex Female 4:39 PM CDT Gender Identity Not on file Sexual Orientation Not on file documented as of this encounter Miscellaneous Notes * Cerner Conversion Note - Historical ProviderMD - 03/25/2018 2:00 AM LEADITE HEATER Paper Sorter And Counter Details Entered On: 03/25/2018 4:05 EST Performed [...]
--- OUTSIDE RECORDS SUMMARY | 2024-12-18 09:16 | XMS_ITS | Encounter Summary ---
Author Organization [employer] ([place], [place], [place], [place], [place]) Address [address] [place] [address] Care Team Providers Care Corrugator Operator Name Role Phone Unavailable Primary Care Provider Unavailabl e Encounter Details Date Type Department Care Team (Late st Contact Info) Description 03/28/2018 Transcribed Document [facility] [place] [address] [place] [address] ProviderZion MD [address] [place], [place] [phone] Social History Tobacco Use Types Packs/Day Years Used Date Smoking Tobacco: Never Assessed Comments Unknown Sex and Gender Information Value Date Recorded Sex Assigned at Not on file Legal Sex Female 4:39 PM CDT Gender Identity Not on file Sexual Orientation Not on file documented as of this encounter Miscellaneous Notes * Cerner Conversion Note - Historical ProviderMD - 03/28/2018 2:00 AM CHIEF RADIOLOGY Senior Resident Care Director Details Entered On: 03/28/2018 6:03 EST Performed [...] Line : No Gabriela Reyes, RN - 03/28/2018 6:02 EST documented in this encounter Plan of Treatment Not on file documented as of this encounter Visit Diagnoses Not on filedocumented in this encounter
--- OUTSIDE RECORDS SUMMARY | 2024-12-18 09:16 | XMS_ITS | Encounter Summary ---
Author Organization [employer] ([place], [place], [place], [place], [place]) Address [address] [place] [address] Care Team Providers Care Cotton Cleaner Name Role Phone Unavailable Primary Care Provider Unavailabl e Encounter Details Date Type Department Care Team (Late st Contact Info) Description 03/25/2018 Transcribed Document [facility] [place] [facility] [place] [address] ProviderZion MD [address] [place] [address] Social History Tobacco Use Types Packs/Day Years Used Date Smoking Tobacco: Never Assessed Comments Unknown Sex and Gender Information Value Date Recorded Sex Assigned at Not on file Legal Sex Female 4:39 PM CDT Gender Identity Not on file Sexual Orientation Not on file documented as of this encounter Miscellaneous Notes * Cerner Conversion Note - Zion ProviderMD - 03/25/2018 8:01 AM PALM AND BACK FORGER Patient: ETHAN CRONIN Age: 57 years Sex: Female : 1960 Associated Diagnoses: None Author: NAVID STARKEY, [facility] 57 year old female with bradycardia during outpt infusion for bacteremia PMH: CAD, CABG/pacemaker 3 years ago, DM, HTN, and PR Consult: vancomycin Indication: bacteremia Goal of Trough: [...] (B 06:41) L 47 (B 11:00) 65 (B 16:15) MAP 72 (B 06:41) 67 (B 00:04) 103 (MAR 24 16:15) SpO2 95 [...]
--- OUTSIDE RECORDS SUMMARY | 2024-12-18 09:16 | XMS_ITS | Encounter Summary ---
Author Organization [employer] ([place], [place], [place], [place], [place]) Address [address] [place] [address] Care Team Providers Care Middleware Consultant Name Role Phone Unavailable Primary Care Provider Unavailabl e Encounter Details Date Type Department Care Team (Late st Contact Info) Description 03/26/2018 Transcribed Document [facility] Family Medicine [facility] [place] [address] ProviderZion MD [address] [place] [phone] Social History Tobacco Use Types Packs/Day Years Used Date Smoking Tobacco: Never Assessed Comments Unknown Sex and Gender Information Value Date Recorded Sex Assigned at Not on file Legal Sex Female 4:39 PM CDT Gender Identity Not on file Sexual Orientation Not on file documented as of this encounter Miscellaneous Notes * Cerner Conversion Note - Zion Alonso MD - 03/26/2018 10:05 AM CHEMICAL UNIT OPERATOR Patient: ETHAN CRONIN Age: 57 years Sex: Female : 1960 Associated Diagnoses: None Author: CARROLL HIGH MD-INF Basic Information CC: Sepsis bacteremia 03/19/18 4/4 bottles for Group b strep ([facility]) History of Present Illness 57-year-old white female with history of bladder cancer, atrial flutter, pacemaker placement 2016, hypertension, DM2, COPD, pancreatitis, who recently had blood cultures obtained at [facility] on 03/19/18 for fever which were positive in 4 out of 4 bottles for group B Streptococcus. Patient was to start IV antibiotics but was found to have bradycardia and was admitted to [facility] on 03/23/17. I was consulted on 03/25/17. The patient had been started on vancomycin and Rocephin. Urine culture obtained at [facility] was positive for multiple bacteria [...] cefTRIAXone (Rocephin) - 2 Gram, IV Piggyback, H40IMhr, infuse over 30 Minute(s), Routine Anticoagulant heparin [...] (FEB 12 13:26) Mon HR 68 (MAR 26 07:00) 68 (MAR 26:00) 73 (MAR 25 18:28) Resp Rate 14 (MAR 26:) 14 (MAR 25) 14 (MAR 25) SBP 116 (MAR 26:00) 103 (MAR 25 15:00) 121 (MAR 25:) DBP 63 (MAR 26:) L 53 (MAR 25 22:25) 70 (MAR 25:) MAP 81 (MAR 26:) 69 (MAR 25 15:) 84 (MAR 25:) SpO2 L 93 (MAR [...] Normal strength, No tenderness. Integumentary: Warm, Dry, [place], No pallor, No rash, Left chest wall pacemaker site without erythema or fluctuance, Right arm PICC okay. Neurologic: Alert, Oriented, No focal deficits. Cognition and Speech: Oriented, Speech clear and coherent. Psychiatric: Cooperative, Appropriate mood & affect. Review / Management Results review: Labs (Last four charted values) WBC 8.8 (MAR 13) 9.0 (MAR 12) 9.3 (B 11) 9.0 (B 10) HB 11.3 (MAR 26) 11.4 (B 12) L 9.9 (B 11) L 10.8 (FEB 10) HCT 36.0 (MAR 13) 35.4 (B [...] 10) Troponin <0.015 (FEB 10) , ACC: [id number] ORDER: Culture Blood DATE: 03/23/2018 17:49 SOURCE: Blood SITE: Reports Pre 03/25/2018 23:01 No growth at 2 days. Pre 03/24/2018 23:02 No growth at 1 day. Pre 03/24/2018 16:03 Culture less than 24 Hrs old == ACC: [id number] ORDER: Culture Blood DATE: 03/23/2018 17:49 SOURCE: Blood SITE: Reports Pre 03/25/2018 23:01 No growth at 2 days. Pre 03/24/2018 23:02 No growth at 1 day. Pre 03/24/2018 16:03 Culture less than 24 Hrs old == . Procedure Critical Care - Code Management Assessment: Radiology Results (Last 48 hours) [id number] -- 03/23/2018 17:08 CT Abdomen Pelvis WO [...] of 4 blood culture bottles positive at [facility] (spoke to Maurice Spencer, at [facility]). The high-grade bacteremia suggests intravascular source [...]
--- OUTSIDE RECORDS SUMMARY | 2024-12-18 09:16 | XMS_ITS | Referral Summary ---
Author Organization [employer] ([place], [place], [place], [place], [place]) Address [address] [place] [address] Care Team Providers Care It Sales Representative Name Role Phone Unavailable Primary Care [...]
--- OUTSIDE RECORDS SUMMARY | 2024-12-18 09:16 | XMS_ITS | Encounter Summary ---
Author Organization [employer] ([place], [place], [place], [place], [place]) Address [address] [place] [address] Care Team Providers Care District Engineer Name Role Phone Unavailable Primary Care Provider Unavailabl e Encounter Details Date Type Department Care Team (Late st Contact Info) Description 03/25/2018 Transcribed Document [facility] [place] Family Medicine [address] [place] [address] ProviderZion MD [address] [place], [place] [phone] Social History Tobacco Use Types Packs/Day Years Used Date Smoking Tobacco: Never Assessed Comments Unknown Sex and Gender Information Value Date Recorded Sex Assigned at Not on file Legal Sex Female 4:39 PM CDT Gender Identity Not on file Sexual Orientation Not on file documented as of this encounter Miscellaneous Notes * [employer]ner Conversion Note - Zion Alonso MD - 03/25/2018 7:28 AM MACHINE HEEL SEAT FITTER DATE OF CONSULTATION: 03/24/2018 ELECTROPHYSIOLOGY CONSULTATION REFERRING HOSPITALIST: Omar Nelson M.D. CONSULTING TEACHER AIDE: Jorge Hawkins MD REASON FOR CONSULTATION: Bradycardia. [...] been seen by Dr. Beard in the [place] [facility]. The patient does have a history of [...] count of 379. [place] 1.8[place] [address]. Liver enzymes normal. EKG shows biventricular paced [...] CC1: Jorge Hawkins M.D. CC2: Dr. Beard; [place], [place] Electronically signed by Jorge Alberto [facility] Conversion Director Client Cerner at 05/29/2022 8:43 PM CDT documented in this encounter Plan of Treatment Not on file documented as of this encounter Visit Diagnoses Not on filedocumented in this encounter
--- OUTSIDE RECORDS SUMMARY | 2024-12-18 09:16 | XMS_ITS | Encounter Summary ---
Author Organization [employer] ([place], [place], [place], [place], [place]) Address [address] [place] [address] Care Team Providers Care Derrick Engineer Name Role Phone Unavailable Primary Care Provider Unavailabl e Encounter Details Date Type Department Care Team (Late st Contact Info) Description 03/25/2018 Transcribed Document [facility] Family Medicine [address] [place] [address] ProviderZion MD [address] [place] [address] Social History Tobacco Use Types [...] - Historical ProviderMD - 03/25/2018 5:00 PM RAPID OUTSOLE STITCHER Chart Check - Review Order Profile Entered On: 03/25/2018 17:06 EST Performed On: 03/25/2018 17:00 EST by Ric Bautista RN Chart Check Chart Reviewed Date and Time : 03/25/2018 17:06 EST Powerplans Initiated/Discontinued as Appropriate : Yes All Active Orders Reviewed : Yes Ric Bautista, REGULO - 03/25/2018 17:06 EST documented in this encounter Plan of Treatment Not on file documented as of this encounter Visit Diagnoses Not on filedocumented in this encounter
--- OUTSIDE RECORDS SUMMARY | 2024-12-18 09:16 | XMS_ITS | Encounter Summary ---
Author Organization [employer] ([place], [place], [place], [place], [place]) Address [address] [place] [address] Care Team Providers Care Supervisor Blood Donor Recruiters Name Role Phone Unavailable Primary Care Provider Unavailabl e Encounter Details Date Type Department Care Team (Late st Contact Info) Description 03/24/2018 Transcribed Document [facility] [place] Family Medicine [address] [place] [address] ProviderZion MD [address] [place] [address] Social History Tobacco Use Types Packs/Day Years Used Date Smoking Tobacco: Never Assessed Comments Unknown Sex and Gender Information Value Date Recorded Sex Assigned at Not on file Legal Sex Female 4:39 PM CDT Gender Identity Not on file Sexual Orientation Not on file documented as of this encounter Miscellaneous Notes * Cerner Conversion Note - Historical ProviderMD - 03/24/2018 1:34 PM TRAINING AND DEVELOPMENT OFFICER Consult Phone Call Documentation Entered On: 03/24/2018 14:54 EST Performed On: 03/24/2018 14:55 EST by MANE CARROLL Phone Call for Consults Consult Phone Call/Page Attempt : First call Consult Reason : Called in Consult on 03/24/18 at 1455 for: +positive blood cultures at OSH perDr. Christian COLETHA - 03/24/2018 14:53 EST Electronically signed by [facility] Conversion Meat Inspector Cerner at 05/29/2022 8:51 PM CDT documented in this encounter Plan of Treatment Not on file documented as of this encounter Visit Diagnoses Not on filedocumented in this encounter
--- OUTSIDE RECORDS SUMMARY | 2024-12-18 09:16 | XMS_ITS | Encounter Summary ---
Author Organization [email or web address] ([place], [place], [place], [place], [place]) Address [address] [place] [address] Care Team Providers Care Tear Down Worker Name Role Phone Unavailable Primary Care Provider Unavailabl e Encounter Details Date Type Department Care Team (Late st Contact Info) Description 03/28/2018 Transcribed Document [facility] [place] Family Medicine [facility] [place] [address] ProviderZion MD [address] [place] [address] Social History Tobacco Use [...] - Historical ProviderMD - 03/28/2018 2:27 PM UNDER WATER ASSISTANT Care Management Assessment/Plan Entered On: 03/28/2018 14:57 EST Performed On: 03/28/2018 14:27 EST by Ninoska Cuellar Rn-Mammography Technician Ed Care Management Note Anticipated Discharge Date : 04/03/2018 14:00 EST Care Management Note : Called [facility] and spoke with Chiquita and updated her on IV abx needs. SHe will check cost and call CM back to see if bed offer is still on the table. CM left VM for Sheri with [facility] to update her, left requesting return phone call. CM updated pt and she appears discouraged that [facility] will not accept her as a pt. She tells CM that she is considering just going home. BLAKE also called Clem with [facility] to argueta abx at home. She states that [facility] may also be able to contract with facility to provide them with abx at their cost. CM faxed info on pt and abx to [facility] f [phone]. CM updated BS RN, Ava. CM will cont to follow. Care Management Note Report : Ninoska Cuellar, Rn-Mammography Technician Ed - 03/28/18 14:21:[address] Jones this am and he tells CM that pt is ready for discharge from his standpoint and that ID has a plan in place for IV abx. PT does have a PICC in place. Recieved VM from [facility] with [facility] p [phone] stating they are interested in pt. CM went to BS to speak with pt to discuss bed offers. CM presented bed offers and pt tells CM that she really doesn't want to go to another facility. Pt tells CM that she only wants to go to [facility], as she has been there in the past. [facility] had not make bed offer at this time. CM called and spoke with Gama in admissions at [facility] and she tells CM that per her DON, they do not believe they can meet pt's needs at this time. CM pressed for more information and Gama told CM that she would have DON call her. -CM then spoke with MADELYN Corona at [facility] and she states that pt appears too sick at this time to come to their facility. CM provided her with verbal updates, as well as faxed updates f [phone]. She states they will reevaluate now, knowing [...] pt at this time due to the $[phone] IV rocephin cost through 05/04/[address] Diaz orders. Cm to follow for ongoing d/c planning/needs. Stew Porras, RN - 03/27/18 16:25:12 blayne from [facility] ([phone]) called to make bed offer. bed offers will be presented to pt 03[facility]28[phone] Stew Porras, RN - 03/27/18 15:00:29 spoke [...] Documentation Status Complete : Yes Ninoska Cuellar, Rn-Mammography Technician Ed - 03/28/2018 14:27 EST documented in this encounter Plan of Treatment Not on file documented as of this encounter Visit Diagnoses Not on filedocumented in this encounter
--- OUTSIDE RECORDS SUMMARY | 2024-12-18 09:16 | XMS_ITS | Encounter Summary ---
Author Organization [employer] ([place], [place], [place], [place], [place]) Address [address] [place] [address] Care Team Providers Care Farm Service Consultant Name Role Phone Unavailable Primary Care Provider Unavailabl e Encounter Details Date Type Department Care Team (Late st Contact Info) Description 03/26/2018 Transcribed Document [facility] [place] [address] [place] [address] ProviderZion MD [address] [place] [address] Social History Tobacco Use Types Packs/Day Years Used Date Smoking Tobacco: Never Assessed Comments Unknown Sex and Gender Information Value Date Recorded Sex Assigned at Not on file Legal Sex Female 4:39 PM CDT Gender Identity Not on file Sexual Orientation Not on file documented as of this encounter Miscellaneous Notes * Cerner Conversion Note - Historical ProviderMD - 03/26/2018 10:40 AM HOUSEHOLD REFRIGERATION MECHANIC Patient: ETHAN LOREDO Age: 57 Years Sex: [...]
--- OUTSIDE RECORDS SUMMARY | 2024-12-18 09:16 | XMS_ITS | Encounter Summary ---
Author Organization [employer] ([place], [place], [place], [place], [place]) Address [address] [place] [address] Care Team Providers Care Side Piece Coverer Name Role Phone Unavailable Primary Care Provider Unavailabl e Encounter Details Date Type Department Care Team (Late st Contact Info) Description 03/24/2018 Transcribed Document [facility] [place] Family Medicine [address] [place] [address] ProviderZion MD [address] [place] [address] Social History Tobacco Use Types [...] - Historical ProviderMD - 03/24/2018 3:32 PM TILE CLASSIFIER Event Note Entered On: 03/24/2018 15:32 EST Performed On: 03/24/2018 15:32 EST by Demetri Arrington Rn Event Note Event Date/Time : 03/24/2018 15:32 EST Description of Event : patient insisting on going down to smoke. smoking form signed Demetri Arrington Rn - 03/24/2018 15:32 EST documented in this encounter Plan of Treatment Not on file documented as of this encounter Visit Diagnoses Not on filedocumented in this encounter
--- OUTSIDE RECORDS SUMMARY | 2024-12-18 09:16 | XMS_ITS | Encounter Summary ---
Author Organization [employer] ([place], [place], [place], [place], [place]) Address [address] [place] [address] Care Team Providers Care Senior Sql Server Database Developer Name Role Phone Unavailable Primary Care Provider Unavailabl e Encounter Details Date Type Department Care Team (Late st Contact Info) Description 03/27/2018 Transcribed Document [facility] [place] Family Medicine [address] [place] [address] ProviderZion MD [address] [place], [place] [id number] Social History Tobacco Use Types Packs/Day Years Used Date Smoking Tobacco: Never Assessed Comments Unknown Sex and Gender Information Value Date Recorded Sex Assigned at Not on file Legal Sex Female 4:39 PM CDT Gender Identity Not on file Sexual Orientation Not on file documented as of this encounter Miscellaneous Notes * Cerner Conversion Note - Historical ProviderMD - 03/27/2018 8:58 AM INFLATED BALL MOLDER Consult Phone Call Documentation Entered On: 03/27/2018 9:19 EST Performed On: 03/27/2018 8:58 EST by Mabel Quinones SWAN Phone Call for Consults Consult Phone Call/Page Attempt : First call Consult Reason : Findings on poncho Physician Requesting Consult : HAO RUBY MD-CAR Physician Requested for Consult : AJAY MARCANO MD-GUICHO Date and Time Call Returned : 03/27/2018 9:19 EST Additional Information : Spoke with Mabel Sampson SWAN - 03/27/2018 9:19 EST documented in this encounter Plan of Treatment Not on file documented as of this encounter Visit Diagnoses Not on filedocumented in this encounter
--- OUTSIDE RECORDS SUMMARY | 2024-12-18 09:16 | XMS_ITS | Encounter Summary ---
Author Organization [email or web address] ([place], [place], [place], [place], [place]) Address [address] [place] [address] Care Team Providers Care Director Non Profit Name Role Phone Unavailable Primary Care Provider Unavailabl e Encounter Details Date Type Department Care Team (Late st Contact Info) Description 03/27/2018 Transcribed Document [facility] [place] Family Medicine [address] [place] [address] ProviderZion MD [address] [place], [place] [id number] Social History Tobacco Use Types Packs/Day Years Used Date Smoking Tobacco: Never Assessed Comments Unknown Sex and Gender Information Value Date Recorded Sex Assigned at Not on file Legal Sex Female 4:39 PM CDT Gender Identity Not on file Sexual Orientation Not on file documented as of this encounter Miscellaneous Notes * Cerner Conversion Note - Historical ProviderMD - 03/27/2018 8:16 AM RISK CONTROL FIELD REPRESENTATIVE Consult Phone Call Documentation Entered On: 03/27/2018 [...] Mabel Marina SWAN - 03/27/2018 11:26 EST documented in this encounter Plan of Treatment Not on file documented as of this encounter Visit Diagnoses Not on filedocumented in this encounter
--- OUTSIDE RECORDS SUMMARY | 2024-12-18 09:16 | XMS_ITS | Encounter Summary ---
Author Organization [employer] ([place], [place], [place], [place], [place]) Address [address] [place] [address] Care Team Providers Care Employee Relations Representative Name Role Phone Unavailable Primary Care Provider Unavailabl e Encounter Details Date Type Department Care Team (Late st Contact Info) Description 03/27/2018 Transcribed Document [facility] [place] Family Medicine [address] [place] [address] ProviderZion MD [address] [place] [address] Social History Tobacco Use Types [...] - Historical ProviderMD - 03/27/2018 10:33 AM EMERGENCY VETERINARY ASSISTANT Care Management Assessment/Plan Entered On: 03/27/2018 [...] Patient History Note Report : DEEPA GALDAMEZ, Inside Sales Representative - 03/26/18 17:47:16 Talked w/ this 57 [...] currently on 2gm IV rocephin, which [facility] says she will need until 04/20/18. Pt lives w/ her estranged spouse at [facility] address, claims she is indep w/ [...]
--- OUTSIDE RECORDS SUMMARY | 2024-12-18 09:16 | XMS_ITS | Encounter Summary ---
Author Organization [employer] ([place], [place], [place], [place], [place]) Address [address] [place] [address] Care Team Providers Care Restaurant Crew Person Name Role Phone Unavailable Primary Care Provider Unavailabl e Encounter Details Date Type Department Care Team (Late st Contact Info) Description 03/25/2018 Transcribed Document [facility] [place] [facility] [place] [address] ProviderZion MD [address] [place] [id number] Social History Tobacco Use Types Packs/Day Years Used Date Smoking Tobacco: Never Assessed Comments Unknown Sex and Gender Information Value Date Recorded Sex Assigned at Not on file Legal Sex Female 4:39 PM CDT Gender Identity Not on file Sexual Orientation Not on file documented as of this encounter Miscellaneous Notes * Cerner Conversion Note - Zion Alonso MD - 03/25/2018 9:14 AM SCREEN WRITER Patient: ETHAN CRONIN Age: 57 years Sex: Female : 1960 Associated Diagnoses: None Author: CARROLL HIGH MD-INF Basic Information CC: Sepsis bacteremia 03/19/18 4/4 bottles for Group b strep ([facility]) History of Present Illness 57-year-old white female with history of bladder cancer, atrial flutter, pacemaker placement 2016, hypertension, DM2, COPD, pancreatitis, who recently had blood cultures obtained at [facility] on 03/19/18 for fever which were positive in 4 out of 4 bottles for group B Streptococcus. Patient was to start IV antibiotics but was found to have bradycardia and was admitted to [facility] on 03/23/17. I was consulted on 03/25/17. The patient had been started on vancomycin and Rocephin. Urine culture obtained at [facility] was positive for multiple bacteria [...] cefTRIAXone (Rocephin) - 2 Gram, IV Piggyback, [id number], infuse over 30 Minute(s), Routine vancomycin + Sodium Chloride 0.9% intravenous solution 250 m - 750 mg, IV Piggyback, [id number], infuse over 1 Hour(s) Anticoagulant heparin - [...] 11:52 - SUSI BOWMAN RN 2006 Cholecystectomy; ([id number]). Comments: 02/17/2015 11:52 - SUSI BOWMAN RN 2007 umbilical hernia repair. Social History Social & Psychosocial Habits Tobacco 02/17/2015 Tobacco Use Within Last Twelve Months Cigarettes Smoking Status Current every day smoker Years of Tobacco Use 40 Packs/Tins Daily 1 Smoking Cessation Information Provided Yes . , 3 children, lives in [facility] about 1[place]/2 hours from [place].. Physical Examination VS/Measurements Vitals Signs (last 24 hrs) Last Charted Minimum Maximum Temp 97.5 (MAR 25 06:41) 97.5 (MAR 25:41) 97.4 (MAR 24:00) Mon HR 70 (MAR 25:41) 50 (MAR 24:00) 70 (MAR 25 00:04) Resp Rate 16 (MAR 25:41) 16 (MAR 24:00) 16 (MAR 24:) SBP 107 (MAR 25 06:41) 98 (MAR 25 00:04) 134 (MAR 24:15) DBP 60 (MAR 25 06:41) L 47 (MAR 24:00) 65 (MAR 24:15) MAP 72 (MAR 25 06:41) 67 (MAR 25 00:04) 103 (MAR 24 16:15) SpO2 95 (MAR 25 06:41) L 91 (MAR 25 00:04) 98 (MAR 24:00) General: Alert and oriented, Moderate distress. Eye: [...] Normal strength, No tenderness. Integumentary: Warm, Dry, [place], No pallor, No rash, Left chest wall [...] 10) HB 11.4 (B 12) L 9.9 (FEB 11) L 10.8 [...] No Radiology Results Found Diagnostic Findings: ACC: [id number] ORDER: Culture Blood DATE: 03/23/2018 17:49 SOURCE: Blood SITE: Reports Pre 03/24/2018 23:02 No growth at 1 day. Pre 03/24/2018 16:03 Culture less than 24 Hrs old == [facility]: [id number] ORDER: Culture Blood DATE: 03/23/2018 17:49 SOURCE: Blood SITE: Reports Pre 03/24/2018 23:02 No growth at 1 day. Pre 03/24/2018 16:03 Culture less than 24 Hrs old == . Impression and Plan 1. Group B streptococcus sepsis 03/19/18 in 4 out of 4 blood culture bottles positive at [facility] (spoke to Maurice [place], at [facility]). The high-grade bacteremia suggests intravascular [...]
--- OUTSIDE RECORDS SUMMARY | 2024-12-18 09:16 | XMS_ITS | Data Portability ---
Author Organization [facility] Address [address] [place] [address] Assessment Encounter Date Assessment Date Assessment LastModified [...] recorded. Lab drug screen, urine 2024 025 [facility], [address] [facility], [place], [address], 5 18:12:43 TSH + free T4, serum 2024 025 [facility], [address], [place], [place], [address], 5 14:15:06 cobalamin and folate panel, serum 2024 025 [facility], [address], [place], [place], [address], 5 14:15:09 CBC w/ auto diff 2024 025 [facility], [address], [place], [place], [address], 5 09:56:34 CMP, serum or plasma 2024 025 [facility], [address], [place], [place], [address], 5 14:15:07 HbA1c (hemoglobin A1c), blood 2024 025 [facility], [address], [place], [place], [address], 5 14:15:09 lipid panel, serum 2024 025 [facility], [address], [place], [place], [address], 5 14:15:08 TSH + free T4, serum 2024 025 [facility], [address], [place], [place], [address], 5 17:07:34 CMP, serum or plasma 2024 025 [facility], [address], [place], [place], [address], 5 17:07:35 CBC w/ auto diff 2024 025 [facility], [address], [place], [place], [address], 5 17:07:34 BNP (B-type natriuretic peptide), serum or plasma 2024 025 [facility], [address], [place], [place], [address], 5 17:07:36 Referral wound care referral - nurse to start wound care on stage 1 to buttocks-pt is already in care with home health 2024 025 [facility], [address] [place] [address], [address], 08:26:07 Procedures None recorded. Surgeries None recorded. Imaging XR, chest, 2 view 2024 025 [facility] (X-Ray), [address], [place], [address], 5 14:20:52 Medication Orders Miralax 17 gram/dose oral powder 2024 025 [facility], [address] [place] [address] [address], [place], [phone], 5 17:15:19 alprazolam 0.5 mg tablet 2024 025 [facility], [address] [place] [address] S, [place], [id number], 5 12:00:52 fluconazole 100 mg tablet 2024 025 [facility], [address] [place] [address], [address], 5 05:01:51 nystatin 100,000 unit/gram topical powder 2024 025 [facility], [address] [place] [address], [address], 5 14:43:23 alprazolam 0.5 mg tablet [address] [facility], [address] [place] [address] 27 S, [place], [id number], 5 14:43:24 penicillin V potassium 250 mg tablet [address] [facility], [address] [place] [address] 27 S, [place], [id number], 14:14:33 Patient TargetsNo targets recorded. Patient Instructions Encounter Date Encounter Id Patient Instructions Last Modified By Organization Details Last Modified Time 08/11/2024 [id number] body mass index: care instructions rebel Not [...] Order ing Provi oscar: Elisha Beckham n SCHEDULE MANAGER Not Available [address] , [place], [address], 03/27/2024 17:28:40 03/27/19 25 03/27/2024 CBC W/AUT O DIFFE RENTI AL white blood cell 8.3 10e3/ uL 4.5-13 .0 normal Not Available [address] [place], [place], [address], 03/27/2024 17:28:40 03/27/19 25 03/27/2024 CBC W/AUT O DIFFE RENTI AL red blood cell 3.06 10e6/ uL 3.80-5 .10 low Not Available [place] [address], [place], [address], 03/27/2024 17:28:40 03/27/19 25 03/27/2024 CBC W/AUT O DIFFE RENTI AL hemoglobin 9.0 g/dL 11.5-1 5.3 low Not Available [address] , [place], [address], 03/27/2024 17:28:40 03/27/19 25 03/27/2024 CBC W/AUT O DIFFE RENTI AL hematocrit 29.5 % 34.0-4 6.0 low Not Available [address] [place], [place], [address], 03/27/2024 17:28:40 03/27/19 25 03/27/2024 CBC W/AUT O DIFFE RENTI AL mean cell volume 96 fL 78.0-9 8.0 normal Not Available [address] [place], [place], [address], 03/27/2024 17:28:40 03/27/19 25 03/27/2024 CBC W/AUT O DIFFE RENTI AL mean cell HGB 29.4 pg 25.0-3 5.0 normal Not Available [address] , [place], [address], 03/27/2024 17:28:40 03/27/19 25 03/27/2024 CBC W/AUT O DIFFE RENTI AL mean cell HGB concentratio n 30.5 g/dL 31.0-3 6.0 low Not Available [address] [place], [place], [address], 03/27/2024 17:28:40 03/27/19 25 03/27/2024 CBC W/AUT O DIFFE RENTI AL red cell distribution width 18.6 % 11.0-1 5.0 high Not Available [address] [place], [place], [address], 03/27/2024 17:28:40 03/27/19 25 03/27/2024 CBC W/AUT O DIFFE RENTI AL platelet count 316 10e3/ uL 150-40 0 normal Not Available [address] [place], [place], [address], 03/27/2024 17:28:40 03/27/19 25 03/27/2024 CBC W/AUT O DIFFE RENTI AL immature granulocyte % 2 0-1 high Not Available [address] , [place], [address], 03/27/2024 17:28:40 03/27/19 25 03/27/2024 CBC W/AUT O DIFFE RENTI AL neutrophil % 71 % 35-75 normal Not Available [address] , [place], [address], 03/27/2024 17:28:40 03/27/19 25 03/27/2024 CBC W/AUT O DIFFE RENTI AL lymphocyte % 19 % 10-50 normal Not Available [address] , [place], [address], 03/27/2024 17:28:40 03/27/19 25 03/27/2024 CBC W/AUT O DIFFE RENTI AL monocyte % 5 % 0-15 normal Not Available [address] , [place], [address], 03/27/2024 17:28:40 03/27/19 25 03/27/2024 CBC W/AUT O DIFFE RENTI AL eosinophil % 2 % 0-5 normal Not Available [address] , [place], [address], 03/27/2024 17:28:40 03/27/19 25 03/27/2024 CBC W/AUT O DIFFE RENTI AL basophil % 1 % 0-5 normal Not Available [address] [place], [place], [address], 03/27/2024 17:28:40 03/27/19 25 03/27/2024 CBC W/AUT O DIFFE RENTI AL immature granulocyte # 0.13 x1000 /uL 0-0.05 high Not Available [address] [place], [place], [address], 03/27/2024 17:28:40 03/27/19 25 03/27/2024 CBC W/AUT O DIFFE RENTI AL neutrophil # 5.92 x1000 /uL 1.50-8 .00 normal Not Available [address] [place], [place], [address], 03/27/2024 17:28:40 03/27/19 25 03/27/2024 CBC W/AUT O DIFFE RENTI AL lymphocyte # 1.55 x1000 /uL 1.20-5 .20 normal Not Available [address] [place], [place], [address], 03/27/2024 17:28:40 03/27/19 25 03/27/2024 CBC W/AUT O DIFFE RENTI AL monocyte # 0.45 x1000 /uL 0.40-0 .90 normal Not Available [address] [place], [place], [address], 03/27/2024 17:28:40 03/27/19 25 03/27/2024 CBC W/AUT O DIFFE RENTI AL eosinophil # 0.18 x1000 /uL 0.00-0 .50 normal Not Available [address] [place], [place], [address], 03/27/2024 17:28:40 03/27/19 25 03/27/2024 CBC W/AUT O DIFFE RENTI AL basophil # 0.07 x1000 /uL 0.00-0 .30 normal Not Available [address] [place], [place], [address], 03/27/2024 17:28:40 03/27/19 25 03/27/2024 CBC W/AUT O DIFFE RENTI AL NRBC automated 0.0 /100_ WBC Not Available [address] [place], [place], [address], 03/27/2024 17:28:40 03/27/19 25 03/27/2024 CBC W/AUT O DIFFE KEELEY AL performing lab see note - [address] [facility] [address] Not Available [address] , [place], [address], 03/27/2024 17:28:40 03/27/19 25 03/27/2024 COMP METAB OLIC PANEL note See Note Order ing Provi oscar: Eugon da Fryma n SCHEDULE MANAGER Not Available [address] , [place], [address], 03/27/2024 17:32:51 03/27/19 25 03/27/2024 COMP METAB OLIC PANEL sodium 137 mmol/ L 136-14 5 normal Not Available [address] , [place], [address], 03/27/2024 17:32:51 03/27/19 25 03/27/2024 COMP METAB OLIC PANEL potassium 5.0 mmol/ L 3.5-5. 1 normal Not Available [address] , [place], [address], 03/27/2024 17:32:51 03/27/19 25 03/27/2024 COMP METAB OLIC PANEL chloride 103 mmol/ L 98-107 normal Not Available [address] , [place], [address], 03/27/2024 17:32:51 03/27/19 25 03/27/2024 COMP METAB OLIC PANEL carbon dioxide 24 mmol/ L 24-33 normal Not Available [address] [place], [address], 03/27/2024 17:32:51 03/27/19 25 03/27/2024 COMP METAB OLIC PANEL anion gap 15.0 mmol/ L 10-20 normal Not Available [address] , [place], [address], 03/27/2024 17:32:51 03/27/19 25 03/27/2024 COMP METAB OLIC PANEL glucose 148 mg/dL 70-99 high Not Available [address] [place], [address], 03/27/2024 17:32:51 03/27/19 25 03/27/2024 COMP METAB OLIC PANEL blood urea nitrogen 61 mg/dL 7-18 high Not Available [address] [place], [address], 03/27/2024 17:32:51 03/27/19 25 03/27/2024 COMP METAB OLIC PANEL creatinine 2.72 mg/dL 0.55-1 .02 high Not Available [address] , [place], [address], 03/27/2024 17:32:51 03/27/19 25 03/27/2024 COMP METAB [...] care of your patie nt. Not Available [address] , [place], [address], 03/27/2024 17:32:51 03/27/19 25 03/27/2024 COMP METAB OLIC PANEL BUN/creatini ne ratio 22 12-20 high Not Available [address] [place], [place], [address], 03/27/2024 17:32:51 03/27/19 25 03/27/2024 COMP METAB OLIC PANEL total protein 6.8 g/dL 6.4-8. 2 normal Not Available [address] [place], [place], [address], 03/27/2024 17:32:51 03/27/19 25 03/27/2024 COMP METAB OLIC PANEL albumin 3.3 g/dL 3.4-5. 0 low Not Available [address] [place], [address], 03/27/2024 17:32:51 03/27/19 25 03/27/2024 COMP METAB OLIC PANEL globulin 3.5 g/dL 1.5-4. 0 normal Not Available [address] [place], [address], 03/27/2024 17:32:51 03/27/19 25 03/27/2024 COMP METAB OLIC PANEL albumin/glob ulin ratio 0.9 0.5-2. 0 normal Not Available [address] [place], [address], 03/27/2024 17:32:51 03/27/19 25 03/27/2024 COMP METAB OLIC PANEL calcium 9.2 mg/dL 8.5-10 .1 normal Not Available [address] [place], [address], 03/27/2024 17:32:51 03/27/19 25 03/27/2024 COMP METAB OLIC PANEL osmolality serum calculated 293 mOsm/ kg 272-28 8 high Not Available [address] [place], [address], 03/27/2024 17:32:51 03/27/19 25 03/27/2024 COMP METAB OLIC PANEL bilirubin total 0.4 mg/dL 0.2-1. 0 normal Use of this assay is not recom godwin d for patie nts under going treat ment with Eltro mbopa g due to the poten tial for false ly eleva anthony resul ts. Not Available [address] [place], [address], 03/27/2024 17:32:51 03/27/19 25 03/27/2024 COMP METAB OLIC PANEL SGOT/AST 14 U/L 15-37 low Not Available [address] [place], [address], 03/27/2024 17:32:51 03/27/19 25 03/27/2024 COMP METAB OLIC PANEL SGPT/ALT 15 U/L 14-59 normal Not Available [address], [place], [address], 03/27/2024 17:32:51 03/27/19 25 03/27/2024 COMP METAB OLIC PANEL alkaline phosphatase total 93 U/L 46-116 normal Not Available [address] , [place], [address], 03/27/2024 17:32:51 03/27/19 25 03/27/2024 COMP METAB OLIC PANEL performing lab see note [facility] [address] [facility] [address] Not Available [address] , [place], [address], 03/27/2024 17:32:51 03/27/19 25 03/27/2024 MAGNE SIUM note See Note Order ing Provi oscar: Elisha Santosa n SCHEDULE MANAGER Not Available [address] [place], [place], [address], 03/27/2024 17:32:52 03/27/19 25 03/27/2024 MAGNE SIUM magnesium 2.3 mg/dL 1.8-2. 4 normal Not Available [address] , [place], [address], 03/27/2024 17:32:52 03/27/19 25 03/27/2024 MAGNE SIUM performing lab see note ML - [facility] [address] [facility] [address] Not Available [address] , [place], [address], 03/27/2024 17:32:52 04/16/19 25 04/15/2024 TSH+F REE T4 TSH 12.100 uIU/m L 0.450- 4.500 above high normal Not Available [facility] ([facility]) [address] [facility], [place], [address], 04/15/2024 17:07:34 04/16/19 25 04/15/2024 TSH+F REE T4 T4,free(dire ct) 1.14 NG/dL 0.82-1 .77 normal Not Available [facility] ([facility]) [address] [place], [address], 04/15/2024 17:07:34 04/16/19 25 04/15/2024 CBC WITH DIFFE RENTI AL/PL ATELE T WBC 7.4 x10e3 /uL 3.4-10 .8 normal Not Available [facility] ([facility]) [address] [place], [address], 04/15/2024 17:07:34 04/16/19 25 04/15/2024 CBC WITH DIFFE RENTI AL/PL ATELE T RBC 3.02 x10e6 /uL 3.77-5 .28 below low normal Not Available [facility] ([facility]) [address] [place], [address], 04/15/2024 17:07:34 04/16/19 25 04/15/2024 CBC WITH DIFFE RENTI AL/PL ATELE T hemoglobin 8.6 g/dL 11.1-1 5.9 below low normal Not Available [facility] ([facility]) [address] [place], [address], 04/15/2024 17:07:34 04/16/19 25 04/15/2024 CBC WITH DIFFE RENTI AL/PL ATELE T hematocrit 28.6 % 34.0-4 6.6 below low normal Not Available [facility] ([facility]) [address] [place], [address], 04/15/2024 17:07:34 04/16/19 25 04/15/2024 CBC WITH DIFFE RENTI AL/PL ATELE T MCV 95 fL 79-97 normal Not Available [facility] ([facility]) [address] [facility], [place], [address], 04/15/2024 17:07:34 04/16/19 25 04/15/2024 CBC WITH DIFFE RENTI AL/PL ATELE T MCH 28.5 pg 26.6-3 3.0 normal Not Available [facility] ([facility]) [address] [facility], [place], [address], 04/15/2024 17:07:34 04/16/19 25 04/15/2024 CBC WITH DIFFE RENTI AL/PL ATELE T MCHC 30.1 g/dL 31.5-3 5.7 below low normal Not Available [facility] ([facility]) [address] [facility], [place], [address], 04/15/2024 17:07:34 04/16/19 25 04/15/2024 CBC WITH DIFFE RENTI AL/PL ATELE T RDW 16.1 % 11.7-1 5.4 above high normal Not Available [facility] ([facility]) [address] [facility], [place], [address], 04/15/2024 17:07:34 04/16/19 25 04/15/2024 CBC WITH DIFFE RENTI AL/PL ATELE T platelets 248 x10e3 /uL 150-45 0 normal Not Available [facility] ([facility]) [address] [place], [address], 04/15/2024 17:07:34 04/16/19 25 04/15/2024 CBC WITH DIFFE RENTI AL/PL ATELE T neutrophils 72 % not estab. normal Not Available [facility] ([facility]) [address] [place], [address], 04/15/2024 17:07:34 04/16/19 25 04/15/2024 CBC WITH DIFFE RENTI AL/PL ATELE T lymphs 16 % not estab. normal Not Available [facility] ([facility]) [address] [place], [address], 04/15/2024 17:07:34 04/16/19 25 04/15/2024 CBC WITH DIFFE RENTI AL/PL ATELE T monocytes 7 % not estab. normal Not Available [facility] ([facility]) [address] [facility], [place], [address], 04/15/2024 17:07:34 04/16/19 25 04/15/2024 CBC WITH DIFFE RENTI AL/PL ATELE T eos 4 % not estab. normal Not Available [facility] ([facility]) [address] [facility], [place], [address], 04/15/2024 17:07:34 04/16/19 25 04/15/2024 CBC WITH DIFFE RENTI AL/PL ATELE T basos 1 % not estab. normal Not Available [facility] ([facility]) [address] [facility], [place], [address], 04/15/2024 17:07:34 04/16/19 25 04/15/2024 CBC WITH DIFFE RENTI AL/PL ATELE T immature cells MARKET RESEARCH MANAGER Not Available [facility] ([facility]) [address] [place], [address], 04/15/2024 17:07:34 04/16/19 25 04/15/2024 CBC WITH DIFFE RENTI AL/PL ATELE T neutrophils (absolute) 5.4 x10e3 /uL 1.4-7. 0 normal Not Available [facility] ([facility]) [address] [place], [address], 04/15/2024 17:07:34 04/16/19 25 04/15/2024 CBC WITH DIFFE RENTI AL/PL ATELE T lymphs (absolute) 1.2 x10e3 /uL 0.7-3. 1 normal Not Available [facility] ([facility]) [address] [place], [address], 04/15/2024 17:07:34 04/16/19 25 04/15/2024 CBC WITH DIFFE RENTI AL/PL ATELE T monocytes(ab solute) 0.5 x10e3 /uL 0.1-0. 9 normal Not Available [facility] ([facility]) [address] [facility], [place], [address], 04/15/2024 17:07:34 04/16/19 25 04/15/2024 CBC WITH DIFFE RENTI AL/PL ATELE T eos (absolute) 0.3 x10e3 /uL 0.0-0. 4 normal Not Available [facility] ([facility]) [address] [facility], [place], [address], 04/15/2024 17:07:34 04/16/19 25 04/15/2024 CBC WITH DIFFE RENTI AL/PL ATELE T baso (absolute) 0.1 x10e3 /uL 0.0-0. 2 normal Not Available [facility] ([facility]) [address] [facility], [place], [address], 04/15/2024 17:07:34 04/16/19 25 04/15/2024 CBC WITH DIFFE RENTI AL/PL ATELE T immature granulocytes 0 % not estab. Not Available [facility] ([facility]) [address] [place], [address], 04/15/2024 17:07:34 04/16/19 25 04/15/2024 CBC WITH DIFFE RENTI AL/PL ATELE T immature grans (abs) 0.0 x10e3 /uL 0.0-0. 1 Not Available [facility] ([facility]) [address] [facility], [place], [address], 04/15/2024 17:07:34 04/16/19 25 04/15/2024 CBC WITH DIFFE RENTI AL/PL ATELE T NRBC MARKET RESEARCH MANAGER Not Available [facility] ([facility]) [address] [facility], [place], [address], 04/15/2024 17:07:34 04/16/19 25 04/15/2024 CBC WITH DIFFE KEELEY AL/PARTHA Gomez hematology comments: MARKET RESEARCH MANAGER Not Available [facility] ([facility]) [address] [facility], [place], [address], 04/15/2024 17:07:34 04/16/19 25 04/15/2024 COMP. METAB OLIC PANEL (14) glucose 111 mg/dL 70-99 above high normal Not Available [facility] ([facility]) [address] [facility] [place], [address], 04/15/2024 17:07:35 04/16/19 25 04/15/2024 COMP. METAB OLIC PANEL (14) BUN 41 mg/dL 8-27 above high normal Not Available [facility] ([facility]) [address] [facility], [place], [address], 04/15/2024 17:07:35 04/16/19 25 04/15/2024 COMP. METAB OLIC PANEL (14) creatinine 2.15 mg/dL 0.57-1 .00 above high normal Not Available [facility] ([facility]) [address] [facility], [place], [address], 04/15/2024 17:07:35 04/16/19 25 04/15/2024 COMP. METAB OLIC PANEL (14) eGFR 26 mL/mi n/1.7 3 >59 below low normal Not Available [facility] ([facility]) [address] [facility] [place], [address], 04/15/2024 17:07:35 04/16/19 25 04/15/2024 COMP. METAB OLIC PANEL (14) BUN/creatini ne ratio 19 12-28 normal Not Available [facility] ([facility]) [address] [facility] [place], [address], 04/15/2024 17:07:35 04/16/19 25 04/15/2024 COMP. METAB OLIC PANEL (14) sodium 140 mmol/ L 134-14 4 normal Not Available [facility] ([facility]) [address] [place], [address], 04/15/2024 17:07:35 04/16/19 25 04/15/2024 COMP. METAB OLIC PANEL (14) potassium 5.1 mmol/ L 3.5-5. 2 normal Not Available [facility] ([facility]) [address] [facility] [place], [address], 04/15/2024 17:07:35 04/16/19 25 04/15/2024 COMP. METAB OLIC PANEL (14) chloride 110 mmol/ L 96-106 above high normal Not Available [facility] ([facility]) [address] [place], [address], 04/15/2024 17:07:35 04/16/19 25 04/15/2024 COMP. METAB OLIC PANEL (14) carbon dioxide, total TNP mmol/ L Test not perfo rmed. Due to a lack of repro ducib ility with this patie nt sampl e, a valid resul t could not be obtai josé miguel. Not Available [facility] ([facility]) [address] [place], [address], 04/15/2024 17:07:35 04/16/19 25 04/15/2024 COMP. METAB OLIC PANEL (14) calcium 8.6 mg/dL 8.7-10 .3 below low normal Not Available [facility] ([facility]) [address] [place], [address], 04/15/2024 17:07:35 04/16/19 25 04/15/2024 COMP. METAB OLIC PANEL (14) protein, total 6.1 g/dL 6.0-8. 5 normal Not Available [facility] ([facility]) [address] [place], [address], 04/15/2024 17:07:35 04/16/19 25 04/15/2024 COMP. METAB OLIC PANEL (14) albumin 3.6 g/dL 3.9-4. 9 below low normal Not Available [facility] ([facility]) [address] [facility] [place], [address], 04/15/2024 17:07:35 04/16/19 25 04/15/2024 COMP. METAB OLIC PANEL (14) globulin, total 2.5 g/dL 1.5-4. 5 Not Available [facility] ([facility]) [address] [facility] [place], [address], 04/15/2024 17:07:35 04/16/19 25 04/15/2024 COMP. METAB OLIC PANEL (14) bilirubin, total 0.2 mg/dL 0.0-1. 2 normal Not Available [facility] ([facility]) [address] [facility] [place], [address], 04/15/2024 17:07:35 04/16/19 25 04/15/2024 COMP. METAB OLIC PANEL (14) alkaline phosphatase 148 IU/L 44-121 above high normal Not Available [facility] ([facility]) [address] [facility] [place], [address], 04/15/2024 17:07:35 04/16/19 25 04/15/2024 COMP. METAB OLIC PANEL (14) AST (SGOT) 27 IU/L 0-40 normal Not Available [facility] ([facility]) [address] [facility] [place], [address], 04/15/2024 17:07:35 04/16/19 25 04/15/2024 COMP. METAB OLIC PANEL (14) ALT (SGPT) 23 IU/L 0-32 normal Not Available [facility] ([facility]) [address] [facility], [address], 04/15/2024 17:07:35 04/16/19 25 04/15/2024 B-TYP E NATRI URETI C PEPTI DE B-type natriuretic peptide 235.2 pg/mL 0.0-10 0.0 above high normal Sieme ns [facility] metho dolog y Not Available [facility] ([facility]) [address] [place], [address], 04/15/2024 17:07:36 04/16/1904/15/2024 PLEAS E NOTE please note Commen t The date and/o r time of colle ction was not indic ated on the requi sitio n as requi red by state and manuel al law. The date of recei pt of the speci men was used as the colle ction date if not suppl ied. Not Available [facility] ([facility]) [address] [place], [address], 04/15/2024 17:07:36 06/19/1906/19/2024 TSH+F REE T4 TSH 5.960 uIU/m L 0.450- 4.500 above high normal Not Available [facility] ([facility]) [address] [place], [address], 06/19/2024 14:15:06 06/19/1906/19/2024 TSH+F REE T4 T4,free(dire ct) 1.28 NG/dL 0.82-1 .77 normal Not Available [facility] ([facility]) [address] [place], [address], 06/19/2024 14:15:06 06/19/19 25 06/19/2024 CBC WITH DIFFE RENTI AL/PL ATELE T WBC 7.5 x10e3 /uL 3.4-10 .8 normal Not Available [facility] ([facility]) [address] [place], [address], 06/19/2024 14:15:07 06/19/19 25 06/19/2024 CBC WITH DIFFE RENTI AL/PL ATELE T RBC 2.98 x10e6 /uL 3.77-5 .28 below low normal Not Available [facility] ([facility]) [address] [place], [address], 06/19/2024 14:15:07 06/19/19 25 06/19/2024 CBC WITH DIFFE RENTI AL/PL ATELE T hemoglobin 7.3 g/dL 11.1-1 5.9 panic low Clien t Reque sted Flag Not Available [facility] ([facility]) [address] [place], [address], 06/19/2024 14:15:07 06/19/19 25 06/19/2024 CBC WITH DIFFE RENTI AL/PL ATELE T hematocrit 25.6 % 34.0-4 6.6 below low normal Not Available [facility] ([facility]) [address] [place], [address], 06/19/2024 14:15:07 06/19/19 25 06/19/2024 CBC WITH DIFFE RENTI AL/PL ATELE T MCV 86 fL 79-97 normal Not Available [facility] ([facility]) [address] [place], [address], 06/19/2024 14:15:07 06/19/19 25 06/19/2024 CBC WITH DIFFE RENTI AL/PL ATELE T MCH 24.5 pg 26.6-3 3.0 below low normal Not Available [facility] ([facility]) [address] [place], [address], 06/19/2024 14:15:07 06/19/19 25 06/19/2024 CBC WITH DIFFE RENTI AL/PL ATELE T MCHC 28.5 g/dL 31.5-3 5.7 below low normal Not Available [facility] ([facility]) [address] [place], [address], 06/19/2024 14:15:06/19/19 25 06/19/2024 CBC WITH DIFFE RENTI AL/PL ATELE T RDW 16.5 % 11.7-1 5.4 above high normal Not Available [facility] ([facility]) [address] [facility], [place], [address], 06/19/2024 14:15:06/19/19 25 06/19/2024 CBC WITH DIFFE RENTI AL/PL ATELE T platelets 332 x10e3 /uL 150-45 0 normal Not Available [facility] ([facility]) [address] [facility], [place], [address], 06/19/2024 14:15:07 06/19/19 25 06/19/2024 CBC WITH DIFFE RENTI AL/PL ATELE T neutrophils 70 % not estab. normal Not Available [facility] ([facility]) [address] [facility], [place], [address], 06/19/2024 14:15:06/19/19 25 06/19/2024 CBC WITH DIFFE RENTI AL/PL ATELE T lymphs 19 % not estab. normal Not Available [facility] ([facility]) [address] [facility] [place], [place], [address], 06/19/2024 14:15:06/19/19 25 06/19/2024 CBC WITH DIFFE RENTI AL/PL ATELE T monocytes 6 % not estab. normal Not Available [facility] ([facility]) [address] [facility] [place], [place], [address], 06/19/2024 14:15:06/19/19 25 06/19/2024 CBC WITH DIFFE RENTI AL/PL ATELE T eos 4 % not estab. normal Not Available [facility] ([facility]) [address] [place], [address], 06/19/2024 14:15:07 06/19/19 25 06/19/2024 CBC WITH DIFFE RENTI AL/PL ATELE T basos 1 % not estab. 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 0 normal Not Available [facility] ([facility]) [address] [place], [address], 06/19/2024 14:15:07 06/19/19 25 06/19/2024 CBC WITH DIFFE RENTI AL/PL ATELE T lymphs (absolute) 1.4 x10e3 /uL 0.7-3. 1 normal Not Available [facility] ([facility]) [address] [place], [address], 06/19/2024 14:15:07 06/19/19 25 06/19/2024 CBC WITH DIFFE RENTI AL/PL ATELE T monocytes(ab solute) 0.5 x10e3 /uL 0.1-0. 9 normal Not Available [facility] ([facility]) [address] [place], [address], 06/19/2024 14:15:07 06/19/19 25 06/19/2024 CBC WITH DIFFE RENTI AL/PL ATELE T eos (absolute) 0.3 x10e3 /uL 0.0-0. 4 normal Not Available [facility] ([facility]) [address] [place], [address], 06/19/2024 14:15:07 06/19/19 25 06/19/2024 CBC WITH DIFFE RENTI AL/PL ATELE T baso (absolute) 0.1 x10e3 /uL 0.0-0. 2 normal Not Available [facility] ([facility]) [address] [facility] [place], [place], [address], 06/19/2024 14:15:07 06/19/19 25 06/19/2024 CBC WITH DIFFE RENTI AL/PL ATELE T immature granulocytes 0 % not estab. Not Available [facility] ([facility]) [address] [facility] [place], [place], [address], 06/19/2024 14:15:07 06/19/19 25 06/19/2024 CBC WITH DIFFE RENTI AL/PL ATELE T immature grans (abs) 0.0 x10e3 /uL 0.0-0. 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 METAB OLIC PANEL (14) glucose 110 mg/dL 70-99 above high normal Not Available [facility] ([facility]) [address] [place], [address], 06/19/2024 14:15:07 06/19/19 25 06/19/2024 COMP. METAB OLIC PANEL (14) BUN 45 mg/dL 8-27 above high normal Not Available [facility] ([facility]) [address] [facility] [place], [address], 06/19/2024 14:15:07 06/19/19 25 06/19/2024 COMP. METAB OLIC PANEL (14) creatinine 2.01 mg/dL 0.57-1 .00 above high normal Not Available [facility] ([facility]) [address] [facility] [place], [address], 06/19/2024 14:15:07 06/19/19 25 06/19/2024 COMP. METAB OLIC PANEL (14) eGFR 28 mL/mi n/1.7 3 >59 below low normal Not Available [facility] ([facility]) [address] [facility] [place], [address], 06/19/2024 14:15:07 06/19/19 25 06/19/2024 COMP. METAB OLIC PANEL (14) BUN/creatini ne ratio 22 12-28 normal Not Available [facility] ([facility]) [address] [facility] [place], [address], 06/19/2024 14:15:07 06/19/19 25 06/19/2024 COMP. METAB OLIC PANEL (14) sodium 139 mmol/ L 134-14 4 normal Not Available [facility] ([facility]) [address] [place], [address], 06/19/2024 14:15:07 06/19/19 25 06/19/2024 COMP. METAB OLIC PANEL (14) potassium 5.1 mmol/ L 3.5-5. 2 normal Not Available [facility] ([facility]) [address] [place], [address], 06/19/2024 14:15:07 06/19/19 25 06/19/2024 COMP. METAB OLIC PANEL (14) chloride 113 mmol/ L 96-106 above high normal Not Available [facility] ([facility]) [address] [place], [address], 06/19/2024 14:15:06/19/19 25 06/19/2024 COMP. METAB OLIC [...] is very sensi tive. Not Available [facility] ([facility]) [address] [facility] [place], [place], [address], 06/19/2024 14:15:06/19/19 25 06/19/2024 COMP. METAB OLIC PANEL (14) calcium 8.8 mg/dL 8.7-10 .3 normal Not Available [facility] ([facility]) [address] [place], [address], 06/19/2024 14:15:07 06/19/19 25 06/19/2024 COMP. METAB OLIC PANEL (14) protein, total 6.4 g/dL 6.0-8. 5 normal Not Available [facility] ([facility]) [address] [place], [address], 06/19/2024 14:15:07 06/19/19 25 06/19/2024 COMP. METAB OLIC PANEL (14) albumin 3.7 g/dL 3.9-4. 9 below low normal Not Available [facility] ([facility]) [address] [place], [address], 06/19/2024 14:15:07 06/19/19 25 06/19/2024 COMP. METAB OLIC PANEL (14) globulin, total 2.7 g/dL 1.5-4. 5 Not Available [facility] ([facility]) [address] [facility] [place], [address], 06/19/2024 14:15:07 06/19/19 25 06/19/2024 COMP. METAB OLIC PANEL (14) bilirubin, total <0.2 mg/dL 0.0-1. 2 Not Available [facility] ([facility]) [address] [facility] [place], [address], 06/19/2024 14:15:07 06/19/19 25 06/19/2024 COMP. METAB OLIC PANEL (14) alkaline phosphatase 131 IU/L 44-121 above high normal Not Available [facility] ([facility]) [address] [facility] [place], [place], [address], 06/19/2024 14:15:07 06/19/19 25 06/19/2024 COMP. METAB OLIC PANEL (14) AST (SGOT) 10 IU/L 0-40 normal Not Available [facility] ([facility]) [address] [facility] [place], [address], 06/19/2024 14:15:07 06/19/19 25 06/19/2024 COMP. METAB OLIC PANEL (14) ALT (SGPT) 12 IU/L 0-32 normal Not Available [facility] ([facility]) [address] [facility] [place], [address], 06/19/2024 14:15:07 06/19/19 25 06/19/2024 LIPID PANEL cholesterol, total 119 mg/dL 100-19 9 normal Not Available [facility] ([facility]) [address] [facility] [place], [address], 06/19/2024 14:15:08 06/19/19 25 06/19/2024 LIPID PANEL triglyceride s 55 mg/dL 0-149 normal Not Available [facility] ([facility]) [address] [place], [address], 06/19/2024 14:15:08 06/19/19 25 06/19/2024 LIPID PANEL HDL cholesterol 36 mg/dL >39 below low normal Not Available [facility] ([facility]) [address] [facility] [place], [address], 06/19/2024 14:15:08 06/19/19 25 06/19/2024 LIPID PANEL VLDL cholesterol sangeetha 12 mg/dL 5-40 Not Available [facility] ([facility]) [address] [facility] [place], [address], 06/19/2024 14:15:06/19/19 25 06/19/2024 LIPID PANEL LDL chol calc ([facility]) 71 mg/dL 0-99 Not Available [facility] ([facility]) [address] [facility] [place], [address], 06/19/2024 14:15:08 06/19/19 25 06/19/2024 LIPID PANEL 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 Not Available [facility] ([facility]) [address] [facility] [place], [address], 06/19/2024 14:15:09 06/19/1906/19/2024 HEMOG LOBIN A1C hemoglobin A1C 6.4 % 4.8-5. 6 above high normal Predi abete s: 5.7 - 6.4 Diabe jo ann: >6.4 Glyce galileo contr ol for adult s with diabe jo ann: <7.0 Not Available [facility] ([facility]) [address] [facility] [place], [place], [address], 06/19/2024 14:15:09 08/12/19 25 08/11/2024 drug scree n, urine AMP negati ve Not Available [address], [address], 08/11/2024 14:56:09 08/12/19 25 08/11/2024 drug scree n, urine BAR negati ve Not Available [address], [address], 08/11/2024 14:56:09 08/12/19 25 08/11/2024 drug scree n, urine BUP negati ve Not Available [address], [address], 08/11/2024 14:56:09 08/12/19 25 08/11/2024 drug scree n, urine BZO negati ve Not Available [address], [address], 08/11/2024 14:56:09 08/12/19 25 08/11/2024 drug scree n, urine STACY negati ve Not Available [address], [address], 08/11/2024 14:56:09 08/12/19 25 08/11/2024 drug scree n, urine FTY negati ve Not Available [address], [address], 08/11/2024 14:56:09 08/12/19 25 08/11/2024 drug scree n, urine MDMA negati ve Not Available [address], [address], 08/11/2024 14:56:09 08/12/1908/11/2024 drug scree n, urine MET negati ve Not Available [address], [address], 08/11/2024 14:56:09 08/12/1908/11/2024 drug scree n, urine MOP negati ve Not Available [address], [address], 08/11/2024 14:56:09 08/12/19 25 08/11/2024 drug scree n, urine MTD negati ve Not Available [address], [address], 08/11/2024 14:56:09 08/12/1908/11/2024 drug scree n, urine OXY negati ve Not Available [address], [address], 08/11/2024 14:56:09 08/12/1908/11/2024 drug scree n, urine PCP negati ve Not Available [address], [address], 08/11/2024 14:56:09 08/12/1908/11/2024 drug scree n, urine TCA negati ve Not Available [address], [address], 08/11/2024 14:56:09 08/12/19 25 08/11/2024 drug scree n, urine THC positi ve Not Available [address], [place], [place], [address], 08/11/2024 14:56:09 03/05/19 25 03/05/2024 CT, abdom en + pelvi s, w/o contr ast No observ ation record ed. [facility] [address], [place], [address], 03/05/2024 15:21:51 03/05/19 25 03/05/2024 CT, chest , w/o contr ast No observ ation record ed. [facility] [id number], [place], [address], 03/05/2024 15:21:51 03/08/19 25 03/05/2024 elect rocar diogr am No observ ation record ed. [place] [facility] [id number], [place], [address], 03/09/2024 08:21:13 03/15/19 25 03/15/2024 XR, chest , 2 view No observ ation record ed. [facility] [id number], [place], [address], 03/16/2024 10:06:59 03/15/19 25 03/15/2024 CT, angio gram, chest , w/ contr ast No observ ation record ed. [facility] [id number], [place], [address], 03/16/2024 10:06:24 03/15/19 25 03/15/2024 CT, angio gram, chest , w/ contr ast No observ ation record ed. [facility] [id number], [place], [address], 03/16/2024 10:05:58 03/16/19 25 03/15/2024 elect rocar diogr am No observ ation record ed. [facility] [address], [place], [place], [address], 03/16/2024 13:50:58 03/16/19 25 03/15/2024 elect rocar diogr am No observ ation record ed. [facility] [address], [place], [place], [address], 03/16/2024 13:50:44 03/17/19 25 03/17/2024 XR, chest , 2 view No observ ation record ed. [facility] [address], [place], [place], [address], 03/17/2024 13:18:34 03/17/19 25 03/16/2024 stres s echoc ardio gram with doppl er color flow (PROC ) No observ ation record ed. [facility] [address], [place], [place], [address], 03/17/2024 13:18:15 03/19/19 25 03/19/2024 XR, chest , 2 view No observ ation record ed. [facility] [address], [place], [place], [address], 03/19/2024 08:41:39 04/10/19 25 04/10/2024 XR, chest , 2 view No observ ation record ed. [facility] [address], [place], [address], 04/10/2024 16:14:04 04/17/19 25 04/16/2024 XR, chest , 2 view No observ ation record ed. [facility] (X-Ray) [address], [place], [address], 04/16/2024 14:20:52 04/18/19 25 04/16/2024 XR, chest , 2 view No observ ation record ed. [facility] [address], [place], [address], 04/17/2024 11:56:42 04/22/19 25 04/16/2024 elect rocar diogr am No observ ation record ed. [facility] [address], [place], [place], [address], 04/23/2024 08:20:46 04/23/19 25 04/21/2024 , [facility] ardio gram, trans esoph ageal No observ ation record ed. [facility] [address], [place], [place], [address], 04/23/2024 08:20:47 04/28/19 25 04/21/2024 elect rocar diogr am No observ ation record ed. [facility] [address], [place], [address], 04/27/2024 09:33:58 04/28/19 25 04/21/2024 elect rocar diogr am No observ ation record ed. [facility] [address], [place], [address], 04/27/2024 09:33:58 07/03/19 25 07/01/2024 LDCT, chest , for lung cance r scree aaliyah No observ ation record ed. [facility] [address], [place], [address], 07/03/2024 09:03:51 10/06/19 25 10/05/2024 elect rocar diogr am No observ ation record ed. [facility] [address], [place], [address], 10/06/2024 08:11:23 11/16/1911/15/2024 CT, abdom en + pelvi s, w/o contr ast No observ ation record ed. [facility] [address], [place], [address], 11/16/2024 08:37:43 11/16/1911/15/2024 XR, chest , 2 view No observ ation record ed. [facility] [address], [place], [place], [address], 11/16/2024 08:37:21 11/16/1911/15/2024 CT, abdom en + pelvi s, w/ contr ast No observ ation record ed. [facility] [address], [place], [address], 11/16/2024 08:36:56 11/17/1911/15/2024 elect rocar diogr am No observ ation record ed. [facility] [address], [place], [address], 11/16/2024 08:35:30 11/18/1911/16/2024 US, doppl er echoc ardio gram, w/ color flow No observ ation record ed. [facility] [address], [place], [address], 11/17/2024 13:01:52 Result Notes None recorded. 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 2015 Ivonne Jones APRN [address], [place], [address], [place] [facility] 4 14:58:47 Disorder of bone 37169498 Active 2015 Crystal Julianne null, [place] - [facility] 6 09:30:30 History of cardiovascu lar disease 769889602 Active 2015 Ivonne Jones, SCHEDULE MANAGER [address], [place], [address], [place] - [facility] 4 14:59:00 Colostomy present 616458360 Completed 201509/03/2017 Dinorah Sharp null, [place] - [facility] 8 13:35:52 Type 2 diabetes mellitus 93111657 Active 2015 Ivonne Jones, SCHEDULE MANAGER [address], [place], [address], [place] [facility] 4 14:58:43 Hyperlipide farooq 07636572 Active 2015 Ivonne Jones, SCHEDULE MANAGER [address], [place], [address], [place] [facility] 4 14:58:53 History of hypertensio n 829963678 Active 2015 Ivonne Jones, SCHEDULE MANAGER [address], [place], [address], [place] [facility] 4 14:58:55 Hypothyroid ism 83764198 Active 2015 Ivonne Jones, SCHEDULE MANAGER [address], [place], [address], [place] [facility] 4 14:58:51 Neuropathy due to diabetes mellitus 800774161 Active 2015 Ivonne Jones, SCHEDULE MANAGER [address], [place], [address], [place] [facility] 4 14:58:46 Pancreatiti s 45569005 Active 2015 Crystal [place] null, [place] - [facility] 6 09:32:11 Spasm of urinary bladder 719145680 Completed 201511/23/2015 Crystal [place] null, [place] - [facility] 6 09:32:45 Insomnia 578374789 Active 2016 Daysivioleta daxa, CHONG [address], [place], [address], [place] [facility] 4 14:58:50 Candidiasis 65105700 Active 2017 Vincent Amin MD [address], [place], [address], [place] [facility] 8 15:37:13 Fatigue 93787600 Active 2017 Anne aguilar, [place] - [facility] 8 10:26:48 Urostomy present 035681295 Active 2017 Daysivioleta Jones, SCHEDULE MANAGER [address], [place], [address], [place] [facility] 4 14:58:41 External hordeolum 0723597 Active 2017 Vincent Amin MD [address], [place], [address], [place] [facility] 8 12:11:25 Depressive disorder 16376396 Active 2023 Daysivioleta NESTOR mittalN [address], [place], [address], [place] [facility] 4 14:59:02 Chronic obstructive pulmonary disease 20041876 Active 2024 Daysivioleta Jones APRN [address], [place], [address], [place] [facility] 5 15:11:34 Congestive heart failure 73341865 Active 2024 Daysivioleta NESTOR mittalN [address], [place], [address], [place] [facility] 5 15:45:47 Blood group O Rh(D) positive 700293062 Active 2024 Daysivioleta NESTOR mittalN [address], [place], [address], [place] [facility] 5 11:32:24 Problem Notes None recorded. Procedures Surgical History Date Name Laterality Status Provider Name and Address Organization Details Recorded Time 03/26/19 25 Medication Reconcilliation completed Cara Campos [place] - [facility] 03/26/2024 14:58:06 12/24/19 24 Medication Reconcilliation completed Elly Quinteross [place] - [facility] 12/24/2023 10:40:11 12/13/19 24 cardiac catheterization completed Elly Stears [place] - [facility] 12/24/2023 10:42:22 06/17/19 24 In and Out Catheterization completed Cara RUSSELL - [facility] 06/17/2023 14:04:19 02/22/19 05 Colposcopy [...] Name and Address Organization Details Recorded Time 22864 ibuprofen medicatio n Not available Not available Not available 11/18/20152014 5640 RxNorm Elly Stears null, [place] - [facility] 14:03:15 Medications Name Sig Start Date Stop Date Status Note LastModified by Organization Details LastModified Time Prescript ion - Renewal 07/11 completed [facility] Not Available Not Available Not Available Prescript ion - Clarifica tion 09/23 completed [facility] Not Available Not Available Not Available [...] Completi on: 11/29/19 15;Pharm acyVerif ied: 08/31/19 9:59AM Not Available Not Available Not Available [...] Disconti nued on: 09/27/19 16 2:00PM;U ser: [email or web address]; Pharmacy Verified : 08/25/19 16 3:50PM Not [...] 48 hours FOR 3 DAYS first DOSE 03/21/2403/26 completed Not Available Not Available Not Available [...] tablet;R ecorded Status: Recorded on: 04/25/19 16 10:29AM; User: [...] Status: Recorded on: 04/25/19 16 10:29AM; User: [email or web address] Not Available Not Available Not Available Eliquis [...] completed Not Available Not Available Not Available [employer] Ultra Blue Test Strip TEST BLOOD SUGAR [...] Available Not Available Not Available Dexcom G7 [employer]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 Not Available Not Available No [...] Updated DateTime 5 154.94 cm 25.3 kg/m2 82354.3 8 g 62 /min 98 % 98 % 18 /min 0 94/60 mm[Hg] Cara RUSSELL - [facility] 5 15:09:52 Date Recorded Body height Body mass index (BMI) Body weight Heart rate Oxygen saturation Oxygen saturation in Arterial blood by Pulse oximetry Respiratory rate Pain severity - 0-10 verbal numeric rating [Score] - Reported Systolic And Diastolic Provider Name and Address Organization Details Last Updated DateTime 5 154.94 cm 28.3 kg/m2 70842.8 6 g 120 /min 98 % 98 % 18 /min 0 96/62 mm[Hg] Cara RUSSELL - [facility] 5 11:37:47 Date Recorded Body height Respiratory rate Body mass index (BMI) Body weight Heart rate Oxygen saturation Oxygen saturation in Arterial blood by Pulse oximetry Body temperature Systolic And Diastolic Provider Name and Address Organization Details Last Updated DateTime 5 154.94 cm 18 /min 25.5 kg/m2 65905.9 7 g 70 /min 97 % 97 % 97.7 [degF] 104/62 mm[Hg] Elly Stears [place] - [facility] 5 13:44:39 Date Recorded Body height Body mass index (BMI) Body weight Heart rate Oxygen saturation Oxygen saturation in Arterial blood by Pulse oximetry Respiratory rate Pain severity - 0-10 verbal numeric rating [Score] - Reported Systolic And Diastolic Provider Name and Address Organization Details Last Updated DateTime 5 154.94 cm 26.5 kg/m2 65607.9 3 g 60 /min 98 % 98 % 18 /min 0 110/68 mm[Hg] Cara Andres [place] - [facility] 5 14:10:55 Date Recorded Body height Respiratory rate Body mass index (BMI) Body weight Body temperature Systolic And Diastolic Provider Name and Address Organization Details Last Updated DateTime 5 154.94 cm 20 /min 24.8 kg/m2 91519.6 g 97.8 [degF] 112/64 mm[Hg] Elly Stears [place] - [facility] 5 13:51:31 Social History Question Answer Notes LastModified by Organizat ion Details LastModified Time Tobacco Smoking Status Current Every Day Smoker Dariela aguilar [facility] 11/23/2015 09:34:05 Do You Have [...] Type Of Diet Are You Following? REGULAR [email or web address] Information not available 10/29/2016 Which Illicit Or [...] Or The Highest Degree You Have Received? 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 No Information not available 02/26/2023 What Was The Date Of Your Most Recent Tobacco Screening? 03/02/2024 Information not available 03/02/2024 How Many Children Do You Have? 2 Information not available 02/26/2023 What Is Your Current Pack Years? [email or web address] Information not available 02/26/2023 Do You Use Protection Against STDs? Always Information not available 02/26/2023 What Is Your Relationship Status? [email or web address] Information not available 10/29/2016 Do You Use [...] Functional Status Question Answer Note LastModified by Finaltaat ion Details LastModified Time Do you use [...] available 02/26/2023 Are you currently employed? No Information not available 10/29/2016 Do you have transportation difficulties? No Information not available 02/26/2023 Are you able to walk independently without assistance or assistive devices? [email or web address] Information not available 02/26/2023 Do you have difficulty doing errands alone? No Information not available 02/26/2023 Are you able to care for yourself independently? Yes [email or web address] Information not available 10/29/2016 Do you have difficulty dressing, bathing, grooming, or toileting? No Information not available 02/26/2023 What is your exercise level? None Information not available 02/26/2023 Mental Status Question Answer Note LastModified by Organizat ion Details LastModified Time Do you feel stressed (tense, restless, nervous, or anxious, or unable to sleep at night)? [id number] Information not available 02/26/2023 Do you have [...] virus, quadrivalent, preservative 7 completed Not Available [facility] 02/28/2019 03:54:44 Pneumococcal conjugate PCV 13 7 completed Not Available [facility] 02/28/2019 03:54:53 Influenza, split virus, trivalent, preservative 4 completed Ivonne Jones, SCHEDULE MANAGER [address], [place], [address], [place] [facility] 11/29/2023 13:27:24 Influenza, split virus, quadrivalent, preservative 8 completed Not Available [facility] 02/28/2019 03:55:20 Influenza, split virus, quadrivalent, preservative 9 completed Cara Andres null, [place] - [facility] 03/26/2023 10:50:48 Influenza, split virus, trivalent, PF 6 completed Cara Andres null, [place] - [facility] 03/26/2023 10:50:48 Td (adult), 2 Lf tetanus toxoid, preservative free, adsorbed 7 completed Cara And[place] - [facility] 03/26/2023 10:50:48 Hep B, adult 5 completed Cara [place] [facility] 03/26/2023 10:50:48 Hep B, adult 4 completed Cara [place] [facility] 03/26/2023 10:50:48 Hep B, adult 4 completed Cara [place] [facility] 03/26/2023 10:50:48 Influenza, split virus, quadrivalent, PF 0 completed Cara [place] [facility] 03/26/2023 10:50:48 Influenza, split virus, quadrivalent, PF 3 completed Cara [place] [facility] 03/26/2023 10:50:49 Influenza, split virus, quadrivalent, PF 2 completed Cara [place] [facility] 03/26/2023 10:50:49 Past Encounters Encounter ID Performer Location Encounter Start Date Encounter Closed Date Diagnosis/Indication Diagnosis SNOMED-CT Code Diagnosis ICD10 Code Diagnosis IMO Codes Diagnosis Note [id number] Anne Mott, CHONG [facility] [address] [place] [address] 11/23/2015 09:25:12 11/23/2015 13:25:24 Diabetes mellitus 74214054 E11.9 Acquired hypothyroidism 352435685 E03.9 Vitamin D deficiency 347 26727 E55.9 History of cardiovascular disease 601910351 Z86.79 History of hypertension 216491307 Z86.79 Neuropathy due to diabetes mellitus 005277297 E11.40 Hypothyroidism 39367940 E03.9 Hyperlipidemia 20427518 E78.5 [id number] Annearturo Mott[address] [place] [address] 12/27/2015 10:43:37 12/27/2015 16:15:20 Anxiety 93370465 F41.9 Acquired hypothyroidism 831972621 E03.9 [id number] Annearturo Mott[address] [place] [address] 01/26/2016 11:16:47 01/26/2016 13:02:03 Neuropathy due to diabetes mellitus 631355048 E11.40 Renewal of prescription 720388887 Z76.0 Disorder of bone 9292762 3 M89.9 Anxiety 11654238 F41.9 Acquired hypothyroidism 509864978 E03.9 [id number] Annearturo Mott[address] [place] [address] 02/15/2016 16:20:52 02/15/2016 16:55:09 Candidiasis of skin 09030969 B37.2 [id number] Annearturo Mott[address] [place] [address] 4 02/27/2016 13:27:14 02/27/2016 14:33:44 Anxiety 13628652 F41.9 Type 2 jonathon betes mellitus 46457808 E11.9 Acquired hypothyroidism 755075112 E03.9 Candidiasis 77368650 B37 .9 under breast and vulvo perineal area is much better than last visit [id number] Anne [place] [place] [address] 03/29/2016 08:04:47 03/29/2016 09:47:03 Type 2 diabetes mellitus 87582654 E11.9 Hypothyroidism 69115916 E03.9 Neuropathy due to diabetes mellitus 099249950 E11.40 History of hypertension 458034214 Z86.79 Hyperlipidemia 91055219 E78.5 Anxiety 43006925 F41.9 Renewal of prescription 167920087 Z76.0 [id number] Anne [place] [place] [address] 04/19/2016 09:22:42 04/19/2016 11:19:36 Hypokalemia 96272574 E87.6 Insomnia 029899530 G47.0 0 [id number] Annearturo Mott[address] [place] [address] 04/26/2016 12:30:47 04/26/2016 13:50:41 Renewal of prescription 513410943 Z76.0 Anxiety 68531873 F41.9 Decreased renal function 27347772 R94.4 chronic, referral has been made to nephrology Hypothyroidism 27323285 E03.9 Type 2 jonathon betes mellitus 93682091 E11.9 History of cardiovascular disease 439136885 Z86.79 [id number] Annearturo Molina[address] [place] [address] 05/28/2016 12:40:29 05/28/2016 18:20:31 Anxiety 59572009 F41.9 [id number] Annearturo Mott[address] [place] [address] 07/26/2016 16:00:07 07/26/2016 17:15:20 Anxiety 83807661 F41.9 Body mass index 30+ - obesity 133724896 Z68.33 Nicotine dependence 5629 4008 F17.200 Neuropathy due to diabetes mellitus 280636808 E11.40 Open wound 324100069 S21 .90XD small opening noted wher drain tube was at bottom of sternotomy scar which is well healed [id number] Annearturo Mott[address] [place] [address] 08/28/2016 10:12:46 08/28/2016 10:49:11 Anxiety 18499460 F41.9 Insomnia 443421757 G47.0 0 Essential hypertension 90741965 I10 Hypothyroidism 88833848 E03.9 Hyperlipidemia 25856783 E78.5 Colostomy present 640177 009 Z93.3 Type 2 jonathon betes mellitus 22041568 E11.9 [id number] Anne Tiera [address] [place] [address] 09/26/2016 15:41:14 09/26/2016 16:27:06 Anxiety 02598112 F41.9 Insomnia 953481480 G47.0 0 [id number] Anne Tiera[address] [place] [address] 10/29/2016 10:15:48 10/29/2016 13:51:37 Insomnia 827330064 G47.00 History of hypertension 597813928 Z86.79 Anxiety 80691926 F41.9 History of cardiovascular disease 487682735 Z86.79 Neuropathy due to diabetes mellitus 008484353 E11.40 Colostomy present 931169 009 Z93.3 Hypothyroidism 65460408 E03.9 Type 2 jonathon betes mellitus 37351303 E11.9 Hyperlipidemia 54154434 E78.5 [id number] Anne Tiera[address] [place] [address] 11/26/2016 14:15:45 11/26/2016 15:26:09 Renewal of prescription 721109773 Z76.0 History of cardiovascular disease 286025541 Z86.79 History of hypertension 188584569 Z86.79 Type 2 jonathon betes mellitus 63454748 E11.9 Anxiety 08831589 F41.9 [id number] Annearturo Mott[address] [place] [address] 12/27/2016 13:29:34 12/27/2016 14:15:59 Renewal of prescription 070048399 Z76.0 Insomnia 382372628 G47.0 0 Active or passive immunization 810996037 Z23 [id number] Annearturo Mott [address] [place] [address] 01/22/2017 14:06:34 01/22/2017 15:30:08 Renewal of prescription 937331314 Z76.0 Anxiety 46187629 F41.9 Body mass index 30+ - obesity 987807437 Z68.34 [id number] Annearturo Mott [address] [place] [address] 02/28/2017 13:01:09 02/28/2017 13:53:23 Renewal of prescription 103770519 Z76.0 Anxiety 80344992 F41.9 Body mass index 30+ - obesity 667715440 Z68.34 [id number] Annearturo Mott[address] [place] [address] 04/25/2017 10:46:10 04/25/2017 12:02:47 Neuropathy due to diabetes mellitus 106531728 E13.40 Renewal of prescription 081603548 Z76.0 Anxiety 96519189 F41.9 History of cardiovascular disease 374218320 Z86.79 Hypothyroidism 83319974 E03.9 [id number] Vincent Amin MD [address] [place] [address] 05/23/2017 14:14:23 05/23/2017 15:31:00 Diabetes mellitus 09894785 E11.9 Candidiasis 89655143 B37 .9 Colostomy present 787692 009 Z93.3 Type 2 jonathon betes mellitus 18861083 E11.37X1 Anxiety 09856811 F41.9 Hyperlipidemia 35465968 E78.5 [id number] Anne Mott[address] [place] [address] 07/11/2017 10:03:27 07/11/2017 11:41:31 Neuropathy due to diabetes mellitus 433707091 E13.40 Insomnia 178782222 G47.0 0 Body mass index 30+ - obesity 146940303 Z68.34 [id number] Anne Mott [address] [place] [address] 07/24/2017 12:46:10 07/24/2017 15:28:15 Anxiety 72603563 F41.9 Renewal of prescription 012653884 Z76.0 Candidiasis of skin 4988 3006 B37.2 [id number] Annearturo Mott[address] [place] [address] 08/22/2017 09:40:55 08/22/2017 10:52:06 Anxiety 32310427 F41.9 Type 2 jonathon betes mellitus 53219617 E11.9 Hypothyroidism 35370553 E03.9 History of hypertension 932934886 Z86.79 History of cardiovascular disease 420649249 Z86.79 Fatigue 40722581 R53.83 Viral screening 86002466 4 Z11.59 Screening for malignant neoplasm of colon 614755186 Z12.11 Hyperlipidemia 22103556 E78.5 Vitamin D deficiency 347 93541 E55.9 Anemia 000686093 D64.9 Pain of mu ltiple joints 32800894 M25.50 [id number] Annearturo Mott[address] [place] [address] 09/03/2017 12:38:43 09/03/2017 13:52:03 Methicillin resistant Staphylococcus aureus infection 934242679 A49.02 Chronic confusion 020399 005 R41.0 [id number] Annearturo Mott[address] [place] [address] 09/23/2017 13:13:01 09/23/2017 14:08:42 Anxiety 44164948 F41.9 History of hypertension 033453175 Z86.79 [id number] Betsey Cuellar[address] [place] [address] 10/24/2017 15:22:59 10/24/2017 17:13:34 Anxiety 87865931 F41.9 Benign hypertension 1072 5009 I10 [id number] Annearturo Mott[address] [place] [address] 11/20/2017 13:42:52 11/20/2017 15:14:18 Anxiety 58540308 F41.9 Neuropathy due to diabetes mellitus 836855266 E13.40 Insomnia 113733221 G47.0 0 Administra tion of influenza vaccine 41235425 Z23 Type 2 jonathon betes mellitus 53198427 E11.9 History of cardiovascular disease 194463732 Z86.79 [id number] Vincent Amin MD [facility] [address] [place] [address] [place] [address] 12/19/2017 15:49:29 12/19/2017 18:10:12 Anxiety 86748332 F41.9 Candidiasis of skin 4988 3006 B37.2 Hordeolum externum of upper eyelid of right eye 7627467758 54602 H00.011 Candidiasis 64826075 B37 .9 History of hypertension 003558123 Z86.79 Neuropathy due to diabetes mellitus 022524145 E11.40 Hyperlipidemia 38620756 E78.5 Pancreatitis 84590233 K8 5.90 External hordeolum 79207 08 H00.019 Urostomy present 8210170 04 Z93.6 [id number] Betsey Cuellar [facility] [address] [facility] [place] [address] 4 02/20/2018 08:48:36 02/20/2018 09:19:38 Anxiety 21397680 F41.9 Neuropathy due to diabetes mellitus 456437901 E11.40 Benign hypertension 1072 5009 I10 Insomnia 538432045 G47.0 0 Hypothyroidism 97870715 E03.9 Fecal occu lt blood: positive 553745876 R19.5 [id number] Ivonne Jones [address] [address] 02/26/2023 13:49:28 02/26/2023 15:29:07 Anxiety 46267172 F41.9 discussed with pt and daughter that due to her pot smoking daily and she takes 4 controlled substance, at this time I would not take those over. discussed if she would stop smoking pot and give a clean uds I could do her xanax and gabapentin but would not write norco and ambien. Depressive disorder 9198 9007 F32.A History of cardiovascular disease 104436952 Z86.79 History of hypertension 445114597 Z86.79 Hypothyroidism 90262888 E03.9 Insomnia 315945455 G47.0 0 Neoplasm o f urinary bladder 708901603 D49.4 Neuropathy due to diabetes mellitus 666345949 E11.40 Type 2 jonathon betes mellitus 99662884 E11.9 pt interested in omnipod pump. Urostomy present 0665560 04 Z93.6 [id number] Ivonne Jones [place] [address] 03/26/2023 10:33:57 03/26/2023 11:48:39 Anxiety 41357443 F41.9 discussed with pt and daughter due to her smoking pot she needs to work on stop smoking. will send xanax and take it over. Depressive disorder 3174 9007 F32.A will increase depression med and send sleep aid. Type 2 jonathon betes mellitus 43560824 E11.9 Long-term current use of benzodiazepine 4536838448 9178849 Z79.899 Insomnia 861246798 G47.0 0 [id number] Ivonne Jones [place] [address] 04/09/2023 10:59:34 04/09/2023 11:37:43 Insomnia 411792189 G47.00 discussed risk with pt Anxiety 36529520 F41.9 discussed with pt and daughter due to her smoking pot she needs to work on stop smoking. will send xanax and take it over. [id number] Ivonne Jones [place] [address] 04/15/2023 10:51:49 04/15/2023 12:57:47 Type 2 diabetes mellitus 89419125 E11.9 omnipod pod will not connect to pump notified omnipod customer service [id number] Ivonne Jones [place] [address] 05/07/2023 10:38:41 05/07/2023 11:06:32 Anxiety 07560542 F41.9 discussed with pt and daughter due to her smoking pot she needs to work on stop smoking. will send xanax and take it over.pt states she has continued to not smoke pot. Type 2 jonathon betes mellitus 19927938 E11.9 call omnipod for replacemen t pump- number given to pt [id number] Ivonne Jones [address] [address] 05/10/2023 10:37:59 05/10/2023 11:39:12 Type 2 diabetes mellitus 22209443 E11.9 omnipod set up and pt verbalizes understand ing [id number] Ivonne Jones [address] [address] 05/13/2023 10:53:27 05/13/2023 11:57:27 Type 2 diabetes mellitus 85287740 E11.9 dexcom set up and pt verbalizes understand ing [id number] Daysivioleta Jones [address] [address] 05/31/2023 08:50:06 05/31/2023 09:49:38 Type 2 diabetes mellitus 98599797 E11.9 dexcom set up and pt verbalizes understand ing Anxiety 64683250 F41.9 discussed with pt and daughter due to her smoking pot she needs to work on stop smoking. will send xanax and take it over.pt states she has continued to not smoke pot. Vitamin D deficiency 347 85945 E55.9 [id number] Ivonne Jones [address] [address] 06/17/2023 09:04:34 06/17/2023 09:45:38 Acute confusion 892113879 R41.0 Chronic ki dney disease 512423563 N18.9 Acute urin glenroy tract infection 376213525 N39.0 if symptoms worsen or no improvemen t return or go to ed [id number] Daysivioleta Jones [address] [address] 06/25/2023 10:50:22 06/25/2023 11:21:34 Depressive disorder 81021228 F32.A will increase depression med and send sleep aid. Anxiety 44346746 F41.9 discussed with pt and daughter due to her smoking pot she needs to work on stop smoking. will send xanax and take it over.pt states she has continued to not smoke pot. Type 2 jonathon betes mellitus 25870968 E11.9 [id number] Daysicrystalantonio Maysdaxa [address] [address] 10/17/2023 14:02:27 10/17/2023 14:34:54 Anxiety 42451536 F41.9 Pt compliant with plan of careKasper reviewedme dication compliance discussedL ast uds:10/17/23 Control substance agreement on file Long-term current use of benzodiazepine 2029543316 0995459 Z79.899 discussed uds results and pt states she will stop smoking pot. discussed next visit if uds not neg will start adjusting meds Type 2 jonathon betes mellitus 08984623 E11.9 discussed the importance to check glucosewri te it down in log and bring to next appointmen tdiscussed importance of taking insulin and taking care of self. [id number] Ivonne Jones [address] [address] 11/15/2023 09:01:36 11/15/2023 09:58:44 Anxiety 89233193 F41.9 Pt compliant with plan of careKasper reviewedme dication compliance discussedL ast uds:10/17/23 Control substance agreement on filewill give 7 extra tabs to take at noon if needed on days where her anxiety is increased Depressive disorder 1319 9007 F32.A History of hypertension 272122284 Z86.79 History of cardiovascular disease 496914298 Z86.79 Hyperlipidemia 30681814 E78.5 Hypothyroidism 47778644 E03.9 Type 2 jonathon betes mellitus 65490600 E11.9 discussed the importance to check glucosewri te it down in log and bring to next appointmen tdiscussed importance of taking insulin and taking care of self. Neuropathy due to diabetes mellitus 629318710 E11.40 Urostomy present 3001731 04 Z93.6 Candidiasis 26575705 B37 .9 keep area clean and dry apply cream [id number] Ivonne Jones [address] [address] 11/29/2023 10:40:35 11/29/2023 11:26:24 Influenza vaccine needed 8551589139 106 Z23 Pain of ri ght upper arm 1678089085 35071 M79.621 Type 2 jonathon betes mellitus 37224321 E11.9 discussed the importance to check glucosewri te it down in log and bring to next appointmen tdiscussed importance of taking insulin and taking care of self. Pain of ri ght shoulder joint 6796583848 7570621 M25.879 [id number] Daysivioleta Jones[address] [address] 12/24/2023 10:36:27 12/24/2023 11:33:59 Renewal of prescription 299982904 Z76.0 Depressive disorder 3548 9007 F32.A Type 2 jonathon betes mellitus 40034057 E11.9 discussed the importance to check glucosewri te it down in log and bring to next appointmen tdiscussed importance of taking insulin and taking care of self. Vitamin D deficiency 347 33872 E55.9 History of cardiovascular disease 880414028 Z86.79 Restless l egs syndrome 97198418 G25.81 Urostomy present 4415008 04 Z93.6 [id number] Ivonne Jones[address] [address] 01/21/2024 14:10:39 01/21/2024 15:59:35 Long-term current use of benzodiazepine 4996793320 9550835 Z79.899 discussed uds results. again discussed the importance of not smoking pot with meds. pt states it helps with anxiety. will increase meds discussed the concerns of her continuing to smoke pot and her contract Anxiety 63932089 F41.9 Pt compliant with plan of careKasper reviewedme dication compliance discussedL ast uds:Control substance agreement on filewill give 7 extra tabs to take at noon if needed on days where her anxiety is increased [id number] Ivonne Jones [address] [address] 02/13/2024 13:49:38 02/13/2024 15:05:04 Acute exacerbation of chronic obstructive pulmonary disease 985761794 J44.1 continue steroidsbr eathing txif symptoms worsen or do not improve return Candidiasis of skin 4988 3006 B37.2 if worsen returnclea n skin well apply powder and then vaseline, then gauze [id number] Ivonne Jones [address] [address] 03/02/2024 14:49:29 03/02/2024 16:01:58 Candidiasis of mouth 32231248 B37.0 Memory impairment 170064 006 R41.3 [id number] Ivonne Jones [address] [address] 03/26/2024 14:43:32 03/26/2024 15:44:32 Pressure injury stage I 5208892231 L89.91 dressing applied to buttocks- wound care referral sent Congestive heart failure 22145981 I50.9 History of cardiovascular disease 707718884 Z86.79 call cardiology mercedes if plavix is not in home meds- discussed the need to have plavix unless told by cardiology not to be on Pneumonia 478666775 J18. 9 continue treatment [id number] Ivonne Jones [address] [address] 04/14/2024 11:10:09 04/14/2024 12:13:43 Chronic obstructive pulmonary disease 43689537 J44.9 Urostomy present 9674894 04 Z93.6 Abnormal weight gain 161 383920 R63.5 Dyspnea 944100170 R06.00 pt refuses to go to ed. discussed risk of not going pt still declines pt states she is not going to [facility] [id number] Ivonne Jones [address] [address] 05/11/2024 13:31:52 05/11/2024 13:57:29 Anxiety 75072073 F41.9 Pt compliant with plan of careKasper reviewedme dication compliance discussedL ast uds:Control substance agreement on filewill give 7 extra tabs to take at noon if needed on days where her anxiety is increased Unexplaine d weight loss 474179602 R63.4 History of cardiovascular disease 962463372 Z86.79 History of primary malignant neoplasm of urinary bladder 968289202 Z85.51 Screening for malignant neoplasm of breast 441677474 Z12.39 [id number] Ivonne Jones SCHEDULE MANAGER [address] [address] 06/18/2024 13:58:48 06/18/2024 14:40:44 Candidiasis of skin 46288926 B37.2 869967 if worsen returnclea n skin well apply powder and then vaseline, then gauze Pruritus of vagina 85656 003 N89.8 277595 [id number] Ivonne Jones [address] [address] 08/11/2024 13:37:47 08/11/2024 14:45:46 Anxiety 90863378 F41.9 Pt compliant with plan of careKasper reviewedme dication compliance discussedL ast uds:08/12/19 25Control substance agreement on fileuds results discussed- discussed pp control substance policy Type 2 jonathon betes mellitus 95192142 E11.9 discussed the importance to check glucosewri te it down in log and bring to next appointmen t Normal weight 12423124 Z 68.24 8328292883 24.8 Family conflict 73087493 Z63.8 91180 Chronic constipation 236 256783 K59.09 625661 Health Concerns Section Related Observation LastModified by Organization Detai ls LastModified Time None Recorded Concern Status LastModified by Organization Details LastModified Time None Recorded Advance Directives Directive N: Payers Insurance Date Sequence Insurance Name Policy Number Policy Garnica Covered Member ID Garnica Member ID Guarantor Name 11/11/2024 2 [place] [employer] CHOICES - FFS/TRADITIO RAFA Cronin [id number] Laxmi Cronin 08/11/2024 2 MEDICAID-[place] [facility] CHOICES - FFS/TRADITIO NAL Laxmi Cronin [id number] Laxmi Cronin 04/02/2023 SLIDING FEE SCHEDULE - DISCOUNT Laxmi Cronin 11/11/2024 1 [employer] - GOLD PLUS (MEDICARE REPLACEMENT/ ADVANTAGE - HMO) Laxmi Cronin [id number] Laxmi Cronin 08/11/2024 2 [place] Laxmi Cronin [id number] Laxmi Cronin 11/12/2024 NGS [facility] - [place] - [facility] (MEDICARE) Laxmi Cronin [id number] Laxmi Cronin Notes Date Note Type Note Provider Name and Address Organization Details Recorded Time 03/26/2024 text/html Emergency Depart ment Follow-Up RecordReported by PatientEmergency Room Follow-Up RecordFor discharge information, patient reportsname of hospital/urgent care patient was seen: ([facility] and ),patient presented to hospital/urgent care on [...] to kidneys/urinary tract and the other at [facility] for pneumonia and pulmonary embolus. Ivonne Jones, CHONG [address], [place], [address], [place] - [facility] 03/26/2024 15:49:08 04/14/2024 text/html ROS as noted in the HPI 63 yr old female presents with raspy cough and short of breath. She has gained around 15 pounds in the last few weeks. Ivonne Jones, SCHEDULE MANAGER [address], [place], [address], [place] - [facility] 04/14/2024 12:06:30 05/11/2024 text/html 63 year old female who presents to the office today for a follow up on anxiety, needs alprazolam refilled. pt states meds help with her anxiety.pt has lost 15lbs since last visit on 04-14-24,declines colonoscopy, will do mamm.labs,urology consult, pt states she just is not hungry or feel like eating. Ivonne Jones APRN [address], [place], [address], [facility] - [facility] 05/11/2024 14:10:36 06/18/2024 text/html ROS as noted in the HPI 64 yr old female presents for vaginal discharge and itching for over a week. She is red under abdomen, breast and groin. Ivonne Jones APRN [address], [place], [address], [facility] - [facility] 06/18/2024 14:48:28 08/11/2024 text/html 64 [...] chew food due to bad teeth Ivonne Jones APRN [address], [place], [address], [place] - [facility] 08/11/2024 16:56:42 OBGyn Episode No OBEpisode recorded.
--- OUTSIDE RECORDS SUMMARY | 2024-12-18 09:16 | XMS_ITS | Encounter Summary ---
Author Organization [employer] ([place], [place], [place], [place], [place]) Address [address] [place] [address] Care Team Providers Care Safety And Health Consultant Name Role Phone Unavailable Primary Care Provider Unavailabl e Encounter Details Date Type Department Care Team (Late st Contact Info) Description 03/27/2018 Transcribed Document [facility] [place] [facility] [address] ProviderZion MD [address] [place] [address] [id number] Social History Tobacco Use Types Packs/Day Years Used Date Smoking Tobacco: Never Assessed Comments Unknown Sex and Gender Information Value Date Recorded Sex Assigned at Not on file Legal Sex Female 4:39 PM CDT Gender Identity Not on file Sexual Orientation Not on file documented as of this encounter Miscellaneous Notes * Cerner Conversion Note - Zion Alonso MD - 03/27/2018 9:17 AM 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 Patient: ETHAN CRONIN Age: 57 years Sex: Female : 1960 Associated Diagnoses: None Author: CARROLL HIGH MD-INF Basic Information CC: Sepsis bacteremia 03/19/18 4/4 bottles for Group b strep ([facility]), mitral prosthetic valve endocarditis History of Present Illness 57-year-old white female with history of bladder cancer, atrial flutter, pacemaker placement 2016, hypertension, DM2, COPD, pancreatitis, who recently had blood cultures obtained at [facility] on 03/19/18 for fever which were positive in 4 out of 4 bottles for group B Streptococcus. Patient was to start IV antibiotics but was found to have bradycardia and was admitted to [facility] on 03/23/17. I was consulted on 03/25/17. The patient had been started on vancomycin and Rocephin. Urine culture obtained at [facility] was positive for multiple bacteria [...] cefTRIAXone (Rocephin) - 2 Gram, IV Piggyback, [id number], infuse over 30 Minute(s), Routine Anticoagulant heparin [...] (MAR 26 16:53) SpO2 L 92 (MAR 27:00) L 87 (MAR 26:15) 94 (MAR 26 [...] Normal strength, No tenderness. Integumentary: Warm, Dry, [place], No pallor, No rash, Left chest wall [...] 10) Troponin <0.015 (FEB 10) , ACC: [id number] ORDER: Culture Blood DATE: 03/23/2018 17:49 SOURCE: Blood SITE: Reports Pre 03/26/2018 23:01 No growth at 3 days. Pre 03/25/2018 23:01 No growth at 2 days. Pre 03/24/2018 23:02 No growth at 1 day. Pre 03/24/2018 16:03 Culture less than 24 Hrs old == ACC: [id number] ORDER: Culture Blood DATE: 03/23/2018 17:49 SOURCE: [...] of 4 blood culture bottles positive at [facility] (spoke to Maurice Spencer, at [facility]). BROCK consistent with mitral valve endocarditis, [...] and discussed with Dr. Perez's service, cardiology. rig manager: Please arrange for outpatient IV antibiotics with Rocephin 2 g IV every 12 hours until 05/04/18. Follow CBC, CMP, CRP weekly while on IV antibiotics. Fax orders to [phone], and call [phone] with final arrangements. Arrange for follow-up with me in 2 weeks post discharge. documented in this encounter Plan of Treatment Not on file documented as of this encounter Visit Diagnoses Not on filedocumented in this encounter
--- OUTSIDE RECORDS SUMMARY | 2024-12-18 09:16 | XMS_ITS | Encounter Summary ---
Author Organization [employer] ([place], [place], [place], [place], [place]) Address [address] [place] [address] Care Team Providers Care Name Role Phone Unavailable Primary Care Provider Unavailabl e Encounter Details Date Type Department Care Team (Late st Contact Info) Description 03/27/2018 Transcribed Document [facility] [facility] [place] [facility] [place] [address] ProviderZion MD [address] [place] [address] [id number] Social History Tobacco Use Types Packs/Day Years Used Date Smoking Tobacco: Never Assessed Comments Unknown Sex and Gender Information Value Date Recorded Sex Assigned at Not on file Legal Sex Female 4:39 PM CDT Gender Identity Not on file Sexual Orientation Not on file documented as of this encounter Miscellaneous Notes * Cerner Conversion Note - Zion ProviderMD - 03/27/2018 10:05 AM VEHICLE CHECK IN CLERK Patient: ETHAN LOREDO Age: 57 Years Sex: [...]
--- OUTSIDE RECORDS SUMMARY | 2024-12-18 09:16 | XMS_ITS | Encounter Summary ---
Author Organization [employer] ([place], [place], [place], [place], [place]) Address [address] [place] [address] Care Team Providers Care Cement Finisher Name Role Phone Unavailable Primary Care Provider Unavailabl e Encounter Details Date Type Department Care Team (Late st Contact Info) Description 03/25/2018 Transcribed Document [facility] [place] [facility] [place] [address] ProviderZion MD [address] [place] [address] [id number] Social History Tobacco Use Types Packs/Day Years Used Date Smoking Tobacco: Never Assessed Comments Unknown Sex and Gender Information Value Date Recorded Sex Assigned at Not on file Legal Sex Female 4:39 PM CDT Gender Identity Not on file Sexual Orientation Not on file documented as of this encounter Miscellaneous Notes * Cerner Conversion Note - Historical ProviderMD - 03/25/2018 1:44 PM 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 2. Biventricular internal cardioverter-defibrillator [employer] TV[employer], this device was reprogrammed, the values as [...] / 35.4 \ Diagnostic Results EKG Paced documented in this encounter Plan of Treatment Not on file documented as of this encounter Visit Diagnoses Not on filedocumented in this encounter
--- OUTSIDE RECORDS SUMMARY | 2024-12-18 09:16 | XMS_ITS | Encounter Summary ---
Author Organization [employer] ([place], [place], [place], [place], [place]) Address [address] [place] [address] Care Team Providers Care Senior Chemist Name Role Phone Unavailable Primary Care Provider Unavailabl e Encounter Details Date Type Department Care Team (Late st Contact Info) Description 05/07/2018 Transcribed Document [facility] [place] [facility] [place] [address] ProviderZion MD [address] [place] [id number] Social History Tobacco Use Types Packs/Day [...] ProviderMD - 05/07/2018 4:09 PM CDT [address] [place] [address] Patient Copy Patient Information: Name: ETHAN CRONIN Current Date: 05/07/2018 16:09:51 : 1960 Patient Address: [address] [place] [id number] Patient Attending Physician: AJAY MARCANO MD-GUICHO Primary Care Provider: SUJIT DAWKINS (REF)IFTIKHAR Primary Care Provider Discharge Diagnosis: Weight on Admission: 163 lb, 0 oz Comment: Follow-up Instructions: With: Address: When: JOHN TSAI [address] [facility] [place] [address] Integrated [employer] (IMMI)1) 11:45 AM With: Address: Jenn: AJAY MARCANO [address] [facility], [address] [place] [address] DiObex (1) Within 2 to 3 days Comments: [...] you are awake and alert. ??? Take ecns-dxe-brxirwp and prescription medicines only as told by [...] 11/18/2013 Document Revised: 07/02/2016 Document Reviewed: 05/19/2016 [employer] Interactive Patient Education ? 2017 [employer] Transesophageal Echocardiogram Transesophageal echocardiography (BROCK) is [...] 11/25/2009 Document Revised: 07/05/2016 Document Reviewed: 07/30/2013 [employer] Interactive Patient Education ? 2017 [employer] CIGARETTE SMOKING: The facts are clear, cigarette smoking will shorten your life. Smoking can cause many illnesses along the way. As a healthcare provider, we recommend that you stop smoking. Assistance with quitting is available by contacting 3-278-FXWH-NOW. This is a free resource providing counseling, [...] Be sure to sign up for the [employer] patient portal, which gives you 03/09 access to your medical information ??? including these discharge instructions ??? using your computer, smartphone, or tablet. Just go to [employer] to get started. Questions? Call . [facility] would like to thank you for allowing us to assist you with your healthcare needs. GERTRUDE Mcconnell VERONICA GAY, (or construction sales representative) have received the above patient education materials/instructions and have verbalized understanding: Patient Signature _ Date/Time Patient Sales Representative Uniforms Signature (if needed) Date/Time Clinician/Hospital Sales Representative Uniforms Signature (if needed) Date/Time Electronically signed by Interface, [facility] Conversion Paper Products Supervisor Cerner at 05/29/2022 8:55 PM CDT documented in this encounter Plan of Treatment Not on file documented as of this encounter Visit Diagnoses Not on filedocumented in this encounter
--- OUTSIDE RECORDS SUMMARY | 2024-12-18 09:16 | XMS_ITS | Encounter Summary ---
Author Organization [employer] ([place], [place], [place], [place], [place]) Address [address] [place] [address] Care Team Providers Care District Medical Examiner Name Role Phone Unavailable Primary Care Provider Unavailabl e Encounter Details Date Type Department Care Team (Late st Contact Info) Description 05/07/2018 Transcribed Document [facility] [place] [address] ProviderZion MD [address] [place] [id number] Social History Tobacco Use Types Packs/Day [...] Zion ProviderMD - 05/07/2018 1:16 PM CDT [address] [place] [address] Patient Copy Patient Information: Name: ETHAN CRONIN Current Date: 05/07/2018 13:16:44 : 1960 Patient Address: [address] [place] [phone] Patient Attending Physician: AJAY MARCANO MD-CAR Primary Care Provider: SUJIT DAWKINS (REF)IFTIKHAR Primary Care Provider Discharge Diagnosis: Weight on Admission: 163 lb, 0 oz Comment: Follow-up Instructions: With: Address: When: AJAY MARCANO [address] [facility] [place] [phone] Business (1[employer] Within 2 to 3 days Comments: Follow-up [...] 11/25/2009 Document Revised: 07/05/2016 Document Reviewed: 07/30/2013 [employer] Interactive Patient Education ? 2017 [employer]. CIGARETTE SMOKING: The facts are clear, cigarette smoking will shorten your life. Smoking can cause many illnesses along the way. As a healthcare provider, we recommend that you stop smoking. Assistance with quitting is available by contacting 5-535-MNKO-NOW. This is a free resource providing counseling, [...] Be sure to sign up for the [employer] patient portal, which gives you 03/09 access to your medical information ??? including these discharge instructions ??? using your computer, smartphone, or tablet. Just go to [email or web address] to get started. Questions? Call . [facility] would like to thank you for allowing us to assist you with your healthcare needs. GERTRUDE Mcconnell VERONICA GAY, (or assistance representative) have received the above patient education materials/instructions and have verbalized understanding: Patient Signature _ Date/Time Patient Commercial Painter Signature (if needed) Date/Time Clinician/Hospital Commercial Painter Signature (if needed) Date/Time Electronically signed by Jorge Alberto, [facility] Conversion [employer] Supervisor Cerner at 05/29/2022 8:56 PM CDT documented in this encounter Plan of Treatment Not on file documented as of this encounter Visit Diagnoses Not on filedocumented in this encounter
--- OUTSIDE RECORDS SUMMARY | 2024-12-18 09:16 | XMS_ITS | Encounter Summary ---
Author Organization [employer] ([place], [place], [place], [place], [place]) Address [address] [place] [address] Care Team Providers Care Fashion Designer Name Role Phone Unavailable Primary Care Provider Unavailabl e Encounter Details Date Type Department Care Team (Late st Contact Info) Description 03/27/2018 Transcribed Document [facility] [place] [facility] [place] [address] ProviderZion MD [address] [place] [address] Social History Tobacco Use Types [...] - Historical ProviderMD - 03/27/2018 4:23 PM SENIOR ACCOUNT DIRECTOR Care Management Assessment/Plan Entered On: 03/27/2018 16:25 EST Performed On: 03/27/2018 16:23 EST by Stew Porras RN Care Management Note Anticipated Discharge Date : 04/03/2018 14:00 EST Care Management Note : blayne from [facility] [place] ( ex 108) called to make bed offer. bed offers will be presented to pt 03/28. dtr will provide transportationashcoulter [phone] Care Management Note Report : Stew Porras RN - 03/27/18 15:00:29 spoke to ID who states pt maybe ready for dc as early as 03/28. id and attending PA are recommending SNF. spoke with pt and her dtr, jazmine and informed them of suggestion from drs to dc to snf for iv abx. pt and dtr in agreement and ref[place] made via [facility] to the following [place].... [place]. Stew Porras, REGULO - 03/27/18 10:34:34 RRS-43 + for BROCK CT consulted and per ID, infection must clear prior to any ant surgical intervention Currnelty on rocephin iv w/bld cx pending Documentation Status Complete : Yes Stew Porras RN - 03/27/2018 16:23 EST Electronically signed by [facility], [facility] Conversion Manufacturing Executive Cerner at 05/29/2022 8:47 PM CDT documented in this encounter Plan of Treatment Not on file documented as of this encounter Visit Diagnoses Not on filedocumented in this encounter
--- OUTSIDE RECORDS SUMMARY | 2024-12-18 09:16 | XMS_ITS | Clinical Summary ---
Author Organization [employer] ([place], [place], [place], [place], [place]) Address [address] [place] [address] Care Team Providers Care Broomcorn Sorter Name Role Phone Unavailable Primary Care Provider [...]
--- OUTSIDE RECORDS SUMMARY | 2024-12-18 09:16 | XMS_ITS | Encounter Summary ---
Author Organization [employer] ([place], [place], [place], [place], [place]) Address [address] [place] [address] Care Team Providers Care Calender Operator Name Role Phone Unavailable Primary Care Provider Unavailabl e Encounter Details Date Type Department Care Team (Late st Contact Info) Description 03/26/2018 Transcribed Document [facility] [place] [address] [place] [address] ProviderZion MD [address] [place], [place] [phone] Social History Tobacco Use Types Packs/Day Years Used Date Smoking Tobacco: Never Assessed Comments Unknown Sex and Gender Information Value Date Recorded Sex Assigned at Not on file Legal Sex Female 4:39 PM CDT Gender Identity Not on file Sexual Orientation Not on file documented as of this encounter Miscellaneous Notes * Cerner Conversion Note - Historical ProviderMD - 03/26/2018 5:00 AM PARTS ASSEMBLER Chart Check - Review Order Profile Entered [...]
--- OUTSIDE RECORDS SUMMARY | 2024-12-18 09:16 | XMS_ITS | Encounter Summary ---
Author Organization [employer] ([place], [place], [place], [place], [place]) Address [address] [place] [address] Care Team Providers Care Marketing Representative Name Role Phone Unavailable Primary Care Provider Unavailabl e Encounter Details Date Type Department Care Team (Late st Contact Info) Description 03/25/2018 Transcribed Document [facility] [place] [address] [place] [address] ProviderZion MD [address] [place] [address] Social History Tobacco Use Types [...] - Historical ProviderMD - 03/25/2018 5:00 AM AUTO SERVICE DISPATCHER Chart Check - Review Order Profile Entered On: 03/25/2018 4:05 EST Performed On: 03/25/2018 5:00 EST by Carolina Valenzuela RN Chart Check Chart Reviewed Date and Time : 03/25/2018 4:05 EST Carolina Valenzuela RN - 03/25/2018 4:05 EST Electronically signed by Jorge Alberto [facility] Conversion Special Events Director Cerner at 05/29/2022 8:34 PM CDT documented in this encounter Plan of Treatment Not on file documented as of this encounter Visit Diagnoses Not on filedocumented in this encounter
--- OUTSIDE RECORDS SUMMARY | 2024-12-18 09:16 | XMS_ITS | Encounter Summary ---
Author Organization [employer] ([place], [place], [place], [place], [place]) Address [address] [place] [address] Care Team Providers Care Sewing Line Baler Name Role Phone Unavailable Primary Care Provider Unavailabl e Encounter Details Date Type Department Care Team (Late st Contact Info) Description 03/27/2018 Transcribed Document [facility] [place] [address] [place] [address] ProviderZion MD [address] [place] [address] Social History Tobacco Use Types [...] - Historical ProviderMD - 03/27/2018 2:00 AM AUTOMOBILES SALESPERSON Emergency Dept Tech Details Entered On: 03/27/2018 5:00 EST Performed [...]
--- OUTSIDE RECORDS SUMMARY | 2024-12-18 09:16 | XMS_ITS | Clinical Summary ---
[facility] Address [address] [place] [address] Care Team Providers Care Paper Cone Maker Name Role Phone Cosme Davis MD Primary Care Provider [phone] Social History Tobacco Use Types Packs/Day Years [...] Insurance MEDICARE A & B Care Teams Paper Cone Maker Relationship Specialty Start Date End Date Cosme Davis MD [address] [facility] [address] ATTN: [place] [address] PCP - General Emergency Medicine 06/04/18
--- OUTSIDE RECORDS SUMMARY | 2024-12-18 09:17 | XMS_ITS | Encounter Summary ---
Author Organization [employer] ([place], [place], [place], [place], [place]) Address [address] [place] [address] Care Team Providers Care Regional Dedicated Truck Driver Name Role Phone Unavailable Primary Care Provider Unavailabl e Encounter Details Date Type Department Care Team (Late st Contact Info) Description 03/23/2018 Transcribed Document [facility] [place] [address] [place] [address] ProviderZion MD [address] [place] [address] Social History Tobacco Use Types [...] - Historical ProviderMD - 03/23/2018 5:16 PM PROJECT ADMIN Event Note Entered On: 03/23/2018 17:17 EST Performed On: 03/23/2018 17:16 EST by Demetri Arrington, Rn Event Note Event Date/Time : 03/23/2018 17:16 EST Description of Event : patient to rm # [id number] Kristen Nelson notified Demetri Arrington, Rn - 03/23/2018 17:16 EST documented in this encounter Plan of Treatment Not on file documented as of this encounter Visit Diagnoses Not on filedocumented in this encounter
--- OUTSIDE RECORDS SUMMARY | 2024-12-18 09:17 | XMS_ITS | Clinical Summary ---
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 atorvastatin (Lipitor) 40 MG tablet Take 1 tablet by mouth daily. 0 Active clopidogrel (Plavix) 75 MG tablet Take 1 tablet by mouth daily. 9 Active levothyroxine (Synthroid, Levoxyl) 25 MCG tablet Take by mouth daily. 9 Active citalopram (CeleXA) 20 MG tablet Take 1 tablet by mouth daily. 1 Active rOPINIRole (Requip) 1 MG tablet Take [...] 3 times a day with meals. Active midodrine (Proamatine) 10 MG tablet Take 1 tablet by mouth every 12 hours. 5 Active mirtazapine (Remeron) 15 MG tablet Take 1 tablet by mouth nightly. 5 Active thiamine (Vitamin B-1) 100 MG tablet Take 1 tablet by mouth daily. 5 Active Aspirin Low Dose 81 MG EC tablet 4 Active HYDROcodone-ac etaminophen (Manlius) 5-325 MG tablet 5 Active insulin syringe-needle U-100 31G X 06/26 1 mL misc 4 Active penicillin V (Veetid) 250 MG tablet 5 Active albuterol (Proventil) (2.5 MG/3ML) 0.083% nebulizer solution INHALE THREE (3) ML (1 VIAL) THREE (3) TIMES A DAY BY NEBULIZATION ROUTE NEEDED FOR 30 DAYS, FOR SHORTNESS OF BREATH. 5 Active Lantus SoloStar 100 UNIT/ML injection pen 5 Active Insulin Lispro (Admelog, HumaLOG) 100 UNIT/ML injection vial INJECT DIRECTED PER SLIDING SCALE VIA INSULIN PUMP TO MAXIMUM OF 80 UNITS PER DAY 5 Active folic acid (Folvite) 1 MG tablet Take 1 tablet by mouth daily. 5 12/01/19 25 ALPRAZolam (Xanax) 0.25 MG tablet Take 1 tablet by mouth 2 times a day as needed for anxiety. 30 tablet 5 11/30/19 25 Active Problems Problem Noted Date Diagnosed Date [...] - 11/13/2024 11:59 PM EDT Hospital Encounter [facility] Radiology [address] [place] [address] Pain in pelvis Discharge Disposition: Home or Self Care 11/13/2024 11:20 AM EDT Office Visit [facility] Orthopaedic Surgery & Sports Medicine [address], [address] [place] [address] Paulo Marquis MD Pain in pelvis (Primary Dx) 11/13/2024 Travel 10/19/2024 Travel 10/18/2024 Travel 10/16/2024 Travel 10/14/2024 Travel 10/13/2024 Travel 10/12/2024 Orders Only External Location [address] [place] [id number] Tito Madrid MD 10/12/2024 Orders Only External Location [address] [place] [address] Tito Madrid MD 10/12/2024 Orders Only External Location [address] [place] [id number] Tito Madrid MD 10/12/2024 Travel 09/18/2024 Travel [...] in a longterm (including now)? No 10/13/2024 [facility] Utilities Answer Date Recorded In the past 12 months has e electric, gas, oil, or water company [...] Description 01/21/2025 1:[address] [facility] Vascular Lab [address] [facility] 5th [address] [place] [address] 01/21/2025 2:[address] [facility] Vascular Lab [address] [facility] 5th [address] [place] [address] 01/21/2025 2:40 PM EST Office Visit [facility] Comprehensive [facility] [address] [facility] 5th Floor [address] [place] [address] oJse Rosario MD [address] [place] [address] Health Maintenance Due Date Last Done Comments [facility]-Depression Screening 1960 [facility] Annual Wellness (AWV) 1960 [facility]-Infant/Child/Adol SDOH Screenings 1960 [id number] Vaccine (#1) 06/04/1967 Diabetes: Dental Exam 1972 [facility]-Zoster Vaccines (1 of 2) 1981 CT Colonography [...] 7:04 PM EDT ANTIBODY IDENTIFICATION Routine 10/23/19 25 7:04 PM EDT TYPE AND SCREEN Routine [...] of ramus of right pubis, initial encounter ([facility]) Shock ([facility]) Essential hypertension Complex medical condition POCT GLUCOSE [...] of ramus of right pubis, initial encounter ([facility]) Shock ([facility]) XR CHEST 1 VIEW STAT 10/14/2024 7:59 [...] Thomas Kunz MD on 11/13/2024 12:21 PM us Paulo Marquis MD IMG XR PROCEDURES Final Resu lt * (ABNORMAL) POCT glucose meter (10/30/2024 11:58 AM EDT) Only the most recent of87 resultswithin the time period is included. [facility] POCT Glucose 251(H) 74 - 99 mg/dL 10/30/2024 12:01 PM EDT [facility] Comment:Accuracy of a glucos e result [...] for testing. Comment 10/30/2024 12:01 PM EDT [facility] Nuclear Medicine Pet Ct Technologist ID Jessika Schneider [id number] 12:01 PM EDT [facility] Device ID [id number] 10/30/2024 12:01 PM EDT [facility] Specimen Type POC Capillary 10/30/2024 12:01 PM EDT [facility] Blood Capillary blood specimen / Unknown 10/30/2024 11:58 AM EDT 10/30/2024 12:01 PM EDT us Tiffany Patten DO LAB POINT OF CARE TE ST DOCKED DEVICE UNSOLICITED RESULTS Final Result [facility] [address] [place] [address] * (ABNORMAL) CBC W/O Differential (10/28/2024 3:43 AM EDT) Only the most recent of4 resultswithin the time period is included. [facility] WBC Count 9.69 3.70 - 10.30 10*3/uL LAB HEMATOLOGY METHOD 10/28/2024 4:21 AM EDT [facility] RBC Count 2.95(L) 3.90 - 5.20 10*6/uL LAB HEMATOLOGY METHOD 10/28/2024 4:21 AM EDT [facility] HGB 8.3(L) 11.2 - 15.7 g/dL LAB HEMATOLOGY METHOD 10/28/2024 4:21 AM EDT [facility] HCT 27.0(L) 34.0 - 45.0 % LAB HEMATOLOGY METHOD 10/28/2024 4:21 AM EDT [facility] Platelet Count 363 155 - 369 10*3/uL LAB HEMATOLOGY METHOD 10/28/2024 4:21 AM EDT [facility] MCV 92 79 - 98 fL LAB HEMATOLOGY METHOD 10/28/2024 4:21 AM EDT [facility] MCH 28.1 26.0 - 32.0 pg LAB HEMATOLOGY METHOD 10/28/2024 4:21 AM EDT [facility] MCHC 30.7 30.7 - 35.5 g/dL LAB HEMATOLOGY METHOD 10/28/2024 4:21 AM EDT [facility] RDW 24.8(H) 11.5 - 14.5 % LAB HEMATOLOGY METHOD 10/28/2024 4:21 AM EDT [facility] MPV 11.9 8.8 - 12.5 fL LAB HEMATOLOGY METHOD 10/28/2024 4:21 AM EDT [facility] nRBC 0.0 <=0.0 per 100 WBCs LAB HEMATOLOGY METHOD 10/28/2024 4:21 AM EDT [facility] Blood Venous blood specimen / Unknown Venipuncture / Unknown 10/28/2024 3:43 AM EDT 10/28/2024 4:13 AM EDT us Tiffany Patten DO LAB BLOOD ORDERABLES Final Re sult [facility] [address] [place] [address] * Magnesium, Plasma (10/28/2024 3:43 AM EDT) Only the most recent of5 resultswithin the time period is included. Magnesium, Plasma 2.2 1.9 - 2.4 mg/dL 10/28/2024 4:42 AM EDT [facility] Blood Venous blood specimen / Unknown Venipuncture / Unknown 10/28/2024 3:43 AM EDT 10/28/2024 4:13 AM EDT us Tiffany Patten DO LAB BLOOD ORDERABLES Final Re sult [facility] [address] [place] [address] * (ABNORMAL) Renal Function Panel, Plasma (10/28/2024 3:43 AM EDT) [facility] Glucose, Plasma 276(H) 74 - 99 mg/dL 10/28/2024 4:42 AM EDT [facility] BUN, Plasma 89(H) 8 - 23 mg/dL 10/28/2024 4:42 AM EDT [facility] Creatinine, Plasma 2.19(H) 0.60 - 1.10 mg/dL 10/28/2024 4:42 AM EDT [facility] BUN/Creatinine Ratio 41 10/28/2024 4:42 AM EDT [facility] Sodium, Plasma 138 136 - 145 mmol/L 10/28/2024 4:42 AM EDT [facility] Potassium, Plasma 5.1(H) 3.6 - 4.9 mmol/L 10/28/2024 4:42 AM EDT [facility] Chloride, Plasma 102 97 - 107 mmol/L 10/28/2024 4:42 AM EDT [facility] CO2, Plasma 25 22 - 29 mmol/L 10/28/2024 4:42 AM EDT [facility] Anion Gap 11 6 - 16 mmol/L 10/28/2024 4:42 AM EDT [facility] Total Calcium, Plasma 8.9 8.9 - 10.2 mg/dL 10/28/2024 4:42 AM EDT [facility] Phosphorus, Plasma 2.8 2.5 - 4.5 mg/dL 10/28/2024 4:42 AM EDT [facility] Albumin, Plasma 3.0(L) 3.5 - 5.2 g/dL 10/28/2024 4:42 AM EDT [facility] eGFRcr 24.9 mL/min/1.7 3m*2 10/28/2024 4:42 AM EDT [facility] Comment:Reported eGFRcr in m L/min/1.73m2 is based the CKD-EPI 2020 equation that does not use a race coefficient. Blood Venous blood specimen / Unknown Venipuncture / Unknown 10/28/2024 3:43 AM EDT 10/28/2024 4:13 AM EDT Tiffany Patten DO LAB BLOOD ORDERABLES Final Re sult [facility] [address] [place] [address] * (ABNORMAL) CBC and differential (10/26/2024 9:19 AM EDT) Only the most recent of11 resultswithin the time period is included. WBC Count 9.12 3.70 - 10.30 10*3/uL LAB HEMATOLOGY METHOD 10/26/2024 9:25 AM EDT [facility] RBC Count 3.03(L) 3.90 - 5.20 10*6/uL LAB HEMATOLOGY METHOD 10/26/2024 9:25 AM EDT [facility] HGB 8.5(L) 11.2 - 15.7 g/dL LAB HEMATOLOGY METHOD 10/26/2024 9:25 AM EDT [facility] HCT 27.1(L) 34.0 - 45.0 % LAB HEMATOLOGY METHOD 10/26/2024 9:25 AM EDT [facility] Platelet Count 331 155 - 369 10*3/uL LAB HEMATOLOGY METHOD 10/26/2024 9:25 AM EDT [facility] MCV 89 79 - 98 fL LAB HEMATOLOGY METHOD 10/26/2024 9:25 AM EDT [facility] MCH 28.1 26.0 - 32.0 pg LAB HEMATOLOGY METHOD 10/26/2024 9:25 AM EDT [facility] MCHC 31.4 30.7 - 35.5 g/dL LAB HEMATOLOGY METHOD 10/26/2024 9:25 AM EDT [facility] RDW 24.6(H) 11.5 - 14.5 % LAB HEMATOLOGY METHOD 10/26/2024 9:25 AM EDT [facility] MPV 11.4 8.8 - 12.5 fL LAB HEMATOLOGY METHOD 10/26/2024 9:25 AM EDT [facility] nRBC 0.0 <=0.0 per 100 WBCs LAB HEMATOLOGY METHOD 10/26/2024 9:25 AM EDT [facility] Differential Type Automated LAB HEMATOLOGY METHOD 10/26/2024 9:25 AM EDT [facility] Neutrophils % 76 % LAB HEMATOLOGY METHOD 10/26/2024 9:25 AM EDT [facility] Lymphocytes % 13 % LAB HEMATOLOGY METHOD 10/26/2024 9:25 AM EDT [facility] Monocytes % 7 % LAB HEMATOLOGY METHOD 10/26/2024 9:25 AM EDT [facility] Eosinophils % 3 % LAB HEMATOLOGY METHOD 10/26/2024 9:25 AM EDT [facility] Basophils % 1 % LAB HEMATOLOGY METHOD 10/26/2024 9:25 AM EDT [facility] Immature Granulocytes % 0 % LAB HEMATOLOGY METHOD 10/26/2024 9:25 AM EDT [facility] Neutrophils Absolute 6.90(H) 1.60 - 6.10 10*3/uL LAB HEMATOLOGY METHOD 10/26/2024 9:25 AM EDT [facility] Lymphocytes Absolute 1.22 1.20 - 3.90 10*3/uL LAB HEMATOLOGY METHOD 10/26/2024 9:25 AM EDT [facility] Monocytes Absolute 0.60 0.30 - 0.90 10*3/uL LAB HEMATOLOGY METHOD 10/26/2024 9:25 AM EDT [facility] Eosinophils Absolute 0.31 0.00 - 0.50 10*3/uL LAB HEMATOLOGY METHOD 10/26/2024 9:25 AM EDT [facility] Basophils Absolute 0.05 0.00 - 0.10 10*3/uL LAB HEMATOLOGY METHOD 10/26/2024 9:25 AM EDT [facility] Immature Granulocytes Absolute 0.04 0.00 - 0.06 10*3/uL LAB HEMATOLOGY METHOD 10/26/2024 9:25 AM EDT [facility] Blood Venous blood specimen / Unknown Venipuncture / Unknown 10/26/2024 9:19 AM EDT 10/26/2024 9:23 AM EDT [facility] - 10/26/2024 9:25 AM EDT Therapeutic decision making should be based on absolute values, rather than percentages. us Yuriy Lockett MD LAB BLOOD ORDERABLES Final Resul t [facility] [address] [place] [address] * (ABNORMAL) Basic metabolic panel (10/26/2024 9:19 AM EDT) Only the most recent of10 resultswithin the time period is included. Glucose, Plasma 244(H) 74 - 99 mg/dL 10/26/2024 9:49 AM EDT [facility] BUN, Plasma 76(H) 8 - 23 mg/dL 10/26/2024 9:49 AM EDT [facility] Creatinine, Plasma 1.97(H) 0.60 - 1.10 mg/dL 10/26/2024 9:49 AM EDT [facility] BUN/Creatinine Ratio 39 10/26/2024 9:49 AM EDT [facility] Sodium, Plasma 138 136 - 145 mmol/L 10/26/2024 9:49 AM EDT [facility] Potassium, Plasma 5.0(H) 3.6 - 4.9 mmol/L 10/26/2024 9:49 AM EDT [facility] Chloride, Plasma 102 97 - 107 mmol/L 10/26/2024 9:49 AM EDT [facility] CO2, Plasma 25 22 - 29 mmol/L 10/26/2024 9:49 AM EDT [facility] Anion Gap 11 6 - 16 mmol/L 10/26/2024 9:49 AM EDT [facility] Total Calcium, Plasma 8.7(L) 8.9 - 10.2 mg/dL 10/26/2024 9:49 AM EDT [facility] eGFRcr 28.3 mL/min/1.7 3m*2 10/26/2024 9:49 AM EDT [facility] Comment:Reported eGFRcr in m L/min/1.73m2 is based the CKD-EPI 2020 equation that does not use a race coefficient. Blood Venous blood specimen / Unknown Venipuncture / Unknown 10/26/2024 9:19 AM EDT 10/26/2024 9:23 AM EDT us Yuriy Lockett MD LAB BLOOD ORDERABLES Final Resul t [facility] [address] [place] [address] * (ABNORMAL) Hemoglobin and Hematocrit, Blood (10/25/2024 12:23 PM EDT) Only the most recent of11 resultswithin the time period is included. HGB 8.1(L) 11.2 - 15.7 g/dL LAB HEMATOLOGY METHOD 10/25/2024 12:30 PM EDT [facility] HCT 25.4(L) 34.0 - 45.0 % LAB HEMATOLOGY METHOD 10/25/2024 12:30 PM EDT [facility] Blood Venous blood specimen / Unknown Venipuncture / Unknown 10/25/2024 12:23 PM EDT 10/25/2024 12:27 PM EDT us Yuriy Lockett MD LAB BLOOD ORDERABLES Final Resul t Performing Organization Address [facility] de Phone Number [facility] [address] [place] [address] * (ABNORMAL) Potassium (10/23/2024 10:26 AM EDT) Only the most recent of3 resultswithin the time period is included. [facility] Potassium, Plasma 5.2(H) 3.6 - 4.9 mmol/L 10/23/2024 10:53 AM EDT [facility] Blood Venous blood specimen / Unknown Venipuncture / Unknown 10/23/2024 10:26 AM EDT 10/23/2024 10:33 AM EDT us Yuriy Lockett MD LAB BLOOD ORDERABLES Final Resul t Performing Organization Address City/[facility] Co de Phone Number [facility] [address] [place] [address] * ECG Adult (10/23/2024 8:22 AM EDT) Only the most recent of4 resultswithin the time period is included. Pathologist [facility] EKG DIAGNOSIS CLASS Abnormal MUSE ECG Ventricular Rate 85 BPM MUSE ECG QRSD Interval 94 ms MUSE ECG QT Interval 378 ms MUSE ECG QTC Interval 449 ms MUSE ECG R [place] 23 degrees MUSE ECG T Wave [place] 124 degrees MUSE ECG Diagnosis Atrial fibrillation with frequent ventricular-pac ed complexes MUSE ECG Diagnosis Nonspecific ST and T wave abnormality MUSE ECG Diagnosis MUSE ECG Diagnosis MUSE ECG Diagnosis Confirmed by José Miguel Rincon ([id number]) on 10/28/2024 10:50:56 PM MUSE ECG 10/23/2024 8:22 AM EDT 10/28/2024 10:50 PM EDT us Yuriy Lockett MD ECG ORDERABLES Final Result MUSE ECG * Transfuse RBC (10/22/2024 11:40 [...] ORDERABLES F inal Result Performing Organization Address City/[facility] Co de Phone Number BLOOD BANK [address] [place] [address], [place] * Antibody Identification (10/22/2024 7:04 PM EDT) Only the most recent of3 resultswithin the time period is included. Pathologist [facility] Antibody ID Anti-E Non-specif ic Patricia 10/22/2024 8:04 PM EDT [facility] Blood Venous blood specimen / Unknown Venipuncture / Unknown 10/22/2024 7:04 PM EDT 10/22/2024 7:08 PM EDT us Yuriy Lockett MD LAB BLOOD BANK TEST ORDERABLES F inal Result Performing Organization Address [facility]/ZIP Co de Phone Number BLOOD [facility] [address] [place] [address], [place] * (ABNORMAL) Type and screen (10/22/2024 7:04 [...] 10/22/2024 7:08 PM EDT Yuriy Lockett MD [facility] BLOOD BANK TEST ORDERABLES F inal Result Performing Organization Address [facility] de Phone Number BLOOD BANK [address] [place] [address], [place] * Prepare Leukocyte Reduced RBC: 1 Units (10/22/2024 5:02 PM EDT) Only the most recent of3 resultswithin the time period is included. [facility] Signature Product Code [id number] BLOO D BANK Dispense Status Transfused BLOOD BANK Blood Expiration Date [id number] BLOOD BANK Unit Number [id number] B LOOD BANK Product Blood Type 5100 BLOOD BANK Blood Type O+ BLOOD BANK Crossmatch Compatible BLOOD BANK Other Yuriy Lockett MD BLOOD BANK PRODUCT ORDERABLES Fi nal Result Performing Organization Address [facility] de Phone Number BLOOD BANK [address] [place] [address], * XR Knee Right 3 Views (10/18/2024 [...] - 4.5 mg/dL 10/17/2024 1:43 AM EDT [facility] Blood Venous blood specimen / Unknown Venipuncture / Unknown 10/17/2024 1:04 AM EDT 10/17/2024 1:14 AM EDT us Aidan Harrison MD LAB BLOOD ORDERABLES Final Res ult [facility] [address] [place] [address] * (ABNORMAL) Comprehensive metabolic panel (10/17/2024 1:04 AM EDT) Only the most recent of4 resultswithin the time period is included. Glucose, Plasma 138(H) 74 - 99 mg/dL 10/17/2024 1:43 AM EDT [facility] BUN, Plasma 50(H) 8 - 23 mg/dL 10/17/2024 1:43 AM EDT [facility] Creatinine, Plasma 1.74(H) 0.60 - 1.10 mg/dL 10/17/2024 1:43 AM EDT [facility] BUN/Creatinine Ratio 29 10/17/2024 1:43 AM EDT [facility] Sodium, Plasma 141 136 - 145 mmol/L 10/17/2024 1:43 AM EDT [facility] Potassium, Plasma 4.0 3.6 - 4.9 mmol/L 10/17/2024 1:43 AM EDT [facility] Chloride, Plasma 114(H) 97 - 107 mmol/L 10/17/2024 1:43 AM EDT [facility] CO2, Plasma 16(L) 22 - 29 mmol/L 10/17/2024 1:43 AM EDT [facility] Anion Gap 11 6 - 16 mmol/L 10/17/2024 1:43 AM EDT [facility] Total Calcium, Plasma 8.2(L) 8.9 - 10.2 mg/dL 10/17/2024 1:43 AM EDT [facility] Total Protein 5.2(L) 6.3 - 7.9 g/dL 10/17/2024 1:43 AM EDT [facility] Albumin, Plasma 2.9(L) 3.5 - 5.2 g/dL 10/17/2024 1:43 AM EDT [facility] AST, Plasma 15 10 - 35 U/L 10/17/2024 1:43 AM EDT [facility] ALT, Plasma 5(L) 10 - 35 U/L 10/17/2024 1:43 AM EDT [facility] Alkaline Phosphatase, Plasma 85 46 - 142 U/L 10/17/2024 1:43 AM EDT [facility] Total Bilirubin, Plasma 0.2 0.2 - 1.1 mg/dL 10/17/2024 1:43 AM EDT [facility] eGFRcr 32.8 mL/min/1.7 3m*2 10/17/2024 1:43 AM EDT [facility] Comment:Reported eGFRcr in m L/min/1.73m2 is based the CKD-EPI 2020 equation that does not use a race coefficient. Blood Venous blood specimen / Unknown Venipuncture / Unknown 10/17/2024 1:04 AM EDT 10/17/2024 1:14 AM EDT us Aidan Harrison MD LAB BLOOD ORDERABLES Final Res ult [facility] [address] [place] [address] * [place] Modified Barium Swallow (10/16/2024 3:05 [...] sips by the cup or the teaspoon. [place] consistency (IDDSI 2): There is no aspiration [...] sips by the cup or the teaspoon. [place] consistency (IDDSI 2): There is no aspiration [...] Renin Activity (LC/MS/MS) (10/16/2024 8:11 AM EDT) PRA RESULT 2.11 0.25 - 5.82 ng/mL/h 10/20/2024 12:14 PM EDT [facility] ([place]) ([facility]) Comment: This test was developed and its analytical performance characteristics have been determined by [facility]. It has not been cleared or approved by the FDA. This assay has been validated pursuant to the CLIA regulations and is used for clinical purposes. Blood Venous blood specimen / Unknown Venipuncture / Unknown 10/16/2024 8:11 AM EDT 10/16/2024 8:22 AM EDT Narrative [facility] ([facility]) ([facility]) - 10/20/2024 12:14 PM EDT Performing Organization Information: Site ID: [id number] Name: [facility] [employer] Address: [address] [place] [id number] Director: Enedina Thao MD, PhD us Aidan Harrison MD LAB BLOOD ORDERABLES Final Res ult [facility] ([facility]) (BEAKER) [facility] [address] [place] [address] * (ABNORMAL) ACTH (10/16/2024 8:11 AM EDT) Only the most recent of2 resultswithin the time period is included. ACTH 5.45(L) 7.2 - 63 pg/mL 10/16/2024 11:38 AM EDT [facility] Blood Venous blood specimen / Unknown Venipuncture / Unknown 10/16/2024 8:11 AM EDT 10/16/2024 8:42 AM EDT Aidan Harrison MD LAB BLOOD ORDERABLES Final Res ult Performing Organization Address City/[facility]/ZIP Co de Phone Number [facility] [address] [place] [address] * Folate (10/16/2024 8:11 AM EDT) Folate, Serum 8.2 >4.6 ng/mL 10/16/2024 9:29 AM EDT [facility] Blood Venous blood specimen / Unknown Venipuncture / Unknown 10/16/2024 8:11 AM EDT 10/16/2024 8:34 AM EDT Aidan Harrison MD LAB BLOOD ORDERABLES Final Res ult [facility] [address] [place] [address] * Ferritin (10/16/2024 8:11 AM EDT) Ferritin, Serum 73 13 - 150 ng/mL 10/16/2024 9:29 AM EDT [facility] Blood Venous blood specimen / Unknown Venipuncture / Unknown 10/16/2024 8:11 AM EDT 10/16/2024 8:34 AM EDT Result Nicole Harrison MD LAB BLOOD ORDERABLES Final Res ult Performing Organization Address City/[facility]/[place] [address] * Vitamin B12 (10/16/2024 8:11 AM EDT) Vitamin B12, Serum 906 210 - 1,033 pg/mL 10/16/2024 9:29 AM EDT [facility] Blood Venous blood specimen / Unknown Venipuncture / Unknown 10/16/2024 8:11 AM EDT 10/16/2024 8:34 AM EDT Result [facility] Aidan Harrison MD LAB BLOOD ORDERABLES Final Res ult Performing Organization Address [facility] [place] [address] * MO CRITICAL CARE, E/M 30-74 MINUTES [...] with the findings and plan as documented. Result Nicole Harrison MD IN CLINIC/BEDSIDE ORDERABLES F inal Result * (ABNORMAL) Iron & Total Iron Binding Capacity, Plasma (Includes Transferrin) (10/16/2024 12:09 AM EDT) Iron, Plasma 21(L) 30 - 160 ug/dL 10/16/2024 7:15 AM EDT [facility] Transferrin, Plasma 159(L) 200 - 360 mg/dL 10/16/2024 7:15 AM EDT [facility] Total Iron Binding Capacity, Plasma 199(L) 240 - 450 ug/mL 10/16/2024 7:15 AM EDT [facility] Transferrin Saturation 11(L) 14 - 50 % 10/16/2024 7:15 AM EDT [facility] Blood Venous blood specimen / Unknown Venipuncture / Unknown 10/16/2024 12:09 AM EDT 10/16/2024 12:37 AM EDT Aidan Harrison MD LAB BLOOD ORDERABLES Final Res ult Performing Organization Address City/[facility]/ZIP Co de Phone Number [facility] [address] [place] [address] * CORTISOL, 60 (10/15/2024 1:29 PM EDT) Cortisol Time=60 36.10 Before 10am: 3.7 - 19.4. After 5pm: 2.9 - 17.3 ug/dL 10/15/2024 3:46 PM EDT [facility] Comment:Administer cosyntrop in and obtain serum cortisol a Blood Venous blood specimen / Unknown Venipuncture / Unknown 10/15/2024 1:29 PM EDT 10/15/2024 2:03 PM EDT Aidan Harrison MD LAB BLOOD ORDERABLES Final Res ult [facility] [address] [place] [address] * Cortisol, 30 (10/15/2024 12:55 PM EDT) Cortisol,Time=30 31.20 Before 10am: 3.7 - 19.4. After 5pm: 2.9 - 17.3 ug/dL 10/15/2024 2:42 PM EDT [facility] Comment:Administer cosyntrop in and obtain serum cortisol a Blood Venous blood specimen / Unknown Venipuncture / Unknown 10/15/2024 12:55 PM EDT 10/15/2024 1:21 PM EDT us Aidan Harrison MD LAB BLOOD ORDERABLES Final Res ult Performing Organization Address City/[facility]/ZIP Co de Phone Number [facility] [address] [place] [address] * Aldosterone (10/15/2024 12:08 PM EDT) Aldosterone 23.0 4.0 - 31.0 ng/dL 10/16/2024 1:35 AM EDT [facility] Blood Venous blood specimen / Unknown Venipuncture / Unknown 10/15/2024 12:08 PM EDT 10/15/2024 2:08 PM EDT us Aidan Harrison MD LAB BLOOD ORDERABLES Final Res ult Performing Organization Address [facility] Co de Phone Number [facility] [address] [place] [address] * Cortisol Baseline (10/15/2024 12:08 PM EDT) Cortisol (Baseline) 11.60 Before 10am: 3.7 - 19.4. After 5pm: 2.9 - 17.3 ug/dL 10/15/2024 2:07 PM EDT [facility] Comment:Administer cosyntrop in and obtain serum cortisol a Blood Venous blood specimen / Unknown Venipuncture / Unknown 10/15/2024 12:08 PM EDT 10/15/2024 12:14 PM EDT us Aidan Harrison MD LAB BLOOD ORDERABLES Final Res ult Performing Organization Address City/[facility] Co de Phone Number [facility] [address] [place] [address] * Cortisol (10/15/2024 8:29 AM EDT) Cortisol 9.60 Before 10am: 3.7 - 19.4. After 5pm: 2.9 - 17.3 ug/dL 10/15/2024 9:29 AM EDT [facility] Comment:Testing performed on [employer] Client Consultant, standardized against [facility] Reference Standard concentration values assigned by LC-MS/MS and verified by BCR 192 and BCR 193 certified reference materials. Blood Venous blood specimen / Unknown Venipuncture / Unknown 10/15/2024 8:29 AM EDT 10/15/2024 8:38 AM EDT Aidan Harrison MD LAB REF LAB BLOOD AND FLUID OR D Final Result [facility] [address] [place] [address] * MO CRITICAL CARE, E/M 30-74 MINUTES [...] 0.16(H) <0.09 ng/mL 10/15/2024 6:41 AM EDT [facility] Blood Arterial blood specimen / Unknown Arterial Puncture / Unknown 10/15/2024 3:23 AM EDT 10/15/2024 3:31 AM EDT Narrative [facility] - 10/15/2024 6:41 AM EDT [...] predict 28 day mortality risk. Please consult [email or web address] for more information. Test performed at [facility]. us Aidan Harrison MD LAB BLOOD ORDERABLES Final Res ult [facility] [address] [place] [address] * (ABNORMAL) Comprehensive Urine Drug Screening, Qualitative Assay, >= 27 Drug Classes (53:04 PM EDT) Acetaminophen Negative Negative 10/16/2024 9:48 AM EDT [facility] Alprazolam Negative Negative 10/16/2024 9:48 AM EDT [facility] Amantadine Negative Negative 10/16/2024 9:48 AM EDT [facility] Amitriptyline Negative Negative 10/16/2024 9:48 AM EDT [facility] Amphetamine Negative Negative 10/16/2024 9:48 AM EDT [facility] Atenolol Negative Negative 10/16/2024 9:48 AM EDT [facility] Benzoylecgonine Negative Negative 9:48 AM EDT [facility] Bisoprolol Negative Negative 10/16/2024 9:48 AM EDT [facility] Bupropion Negative Negative 10/16/2024 9:48 AM EDT [facility] Butalbital Negative Negative 10/16/2024 9:48 AM EDT [facility] Carbamazepine Negative Negative 10/16/2024 9:48 AM EDT [facility] Carisoprodol Negative Negative 10/16/2024 9:48 AM EDT [facility] Chlorpheniramine Negative Negative 10/17/19 9:48 AM EDT [facility] Citalopram Negative Negative 10/16/2024 9:48 AM EDT [facility] Clindamycin Negative Negative 10/16/2024 9:48 AM EDT [facility] Clonidine Negative Negative 10/16/2024 9:48 AM EDT [facility] Clopidogrel / Ticlopidine Negative Negative 10/16/2024 9:48 AM EDT [facility] Cocaethylene Negative Negative 10/16/2024 9:48 AM EDT [facility] Cocaine Negative Negative 10/16/2024 9:48 AM EDT [facility] Codeine Negative Negative 10/16/2024 9:48 AM EDT [facility] Cyclobenzaprine Negative Negative 9:48 AM EDT [facility] Desvenlafaxine Negative Negative 10/16/2024 9:48 AM EDT [facility] Dextromethorphan Negative Negative 10/17/19 9:48 AM EDT [facility] Diazepam Negative Negative 10/16/2024 9:48 AM EDT [facility] Diltiazem Negative Negative 10/16/2024 9:48 AM EDT [facility] Diphenhydramine Negative Negative 9:48 AM EDT [facility] Doxepine Negative Negative 10/16/2024 9:48 AM EDT [facility] Doxylamine Negative Negative 10/16/2024 9:48 AM EDT [facility] EDDP-Methadone metabolite Negative Negative 10/16/2024 9:48 AM EDT [facility] Fentanyl Negative Negative 10/16/2024 9:48 AM EDT [facility] Fluconazole Negative Negative 10/16/2024 9:48 AM EDT [facility] Fluoxetine Negative Negative 10/16/2024 9:48 AM EDT [facility] Guaifenesin Negative Negative 10/16/2024 9:48 AM EDT [facility] Haloperidol Negative Negative 10/16/2024 9:48 AM EDT [facility] Heroin/6-JUVENCIO Negative Negative 10/16/2024 9:48 AM EDT [facility] Hydrocodone Negative Negative 10/16/2024 9:48 AM EDT [facility] Hydroxyzine / Cetirizine metabolite Negative Negative 10/16/2024 9:48 AM EDT [facility] Ibuprofen Negative Negative 10/16/2024 9:48 AM EDT [facility] Imipramine Negative Negative 10/16/2024 9:48 AM EDT [facility] Ketamine Negative Negative 10/16/2024 9:48 AM EDT [facility] Labetolol Negative Negative 10/16/2024 9:48 AM EDT [facility] Lamotrigine Negative Negative 10/16/2024 9:48 AM EDT [facility] Levetiracetam Negative Negative 10/16/2024 9:48 AM EDT [facility] Lidocaine Positive(A) Negative 10/16/2024 9:48 AM EDT [facility] MDA Negative Negative 10/16/2024 9:48 AM EDT [facility] MDMA Negative Negative 10/16/2024 9:48 AM EDT [facility] Memantine Negative Negative 10/16/2024 9:48 AM EDT [facility] Meperidine Negative Negative 10/16/2024 9:48 AM EDT [facility] Meprobamate Negative Negative 10/16/2024 9:48 AM EDT [facility] Metaxalone Negative Negative 10/16/2024 9:48 AM EDT [facility] Methamphetamine Negative Negative 9:48 AM EDT [facility] Methocarbamol Negative Negative 10/16/2024 9:48 AM EDT [facility] Methylecgonine Negative Negative 10/16/2024 9:48 AM EDT [facility] Metoclopramide Negative Negative 10/16/2024 9:48 AM EDT [facility] Metoprolol Negative Negative 10/16/2024 9:48 AM EDT [facility] Metronidazole Negative Negative 10/16/2024 9:48 AM EDT [facility] Midazolam Negative Negative 10/16/2024 9:48 AM EDT [facility] Midazolam Metabolite Negative Negative 10/16/2024 9:48 AM EDT [facility] Mirtazapine Negative Negative 10/16/2024 9:48 AM EDT [facility] Misc Test Result Positive(A) Negative 025 9:48 AM EDT [facility] Comment: Escitalopram Citalopram Trazodone Naproxen Negative Negative 10/16/2024 9:48 AM EDT [facility] Nefazodone Negative Negative 10/16/2024 9:48 AM EDT [facility] Norfentanyl Negative Negative 10/16/2024 9:48 AM EDT [facility] Nortriptyline Negative Negative 10/16/2024 9:48 AM EDT [facility] Ordanstron Negative Negative 10/16/2024 9:48 AM EDT [facility] Oxcarbazepine Negative Negative 10/16/2024 9:48 AM EDT [facility] Oxycodone Positive(A) Negative 10/16/2024 9:48 AM EDT [facility] Paroxethine Negative Negative 10/16/2024 9:48 AM EDT [facility] Phenobarbital Negative Negative 10/16/2024 9:48 AM EDT [facility] Phentermine Negative Negative 10/16/2024 9:48 AM EDT [facility] Phenytoin Negative Negative 10/16/2024 9:48 AM EDT [facility] Primidone Negative Negative 10/16/2024 9:48 AM EDT [facility] Promethazine Negative Negative 10/16/2024 9:48 AM EDT [facility] Propofol Negative Negative 10/16/2024 9:48 AM EDT [facility] Propranolol Negative Negative 10/16/2024 9:48 AM EDT [facility] Quetiapine Negative Negative 10/16/2024 9:48 AM EDT [facility] Quinine Negative Negative 10/16/2024 9:48 AM EDT [facility] Rantidine Negative Negative 10/16/2024 9:48 AM EDT [facility] Sertraline Negative Negative 10/16/2024 9:48 AM EDT [facility] Spironolactone Negative Negative 10/16/2024 9:48 AM EDT [facility] Tizanidine Negative Negative 10/16/2024 9:48 AM EDT [facility] Topiramate Negative Negative 10/16/2024 9:48 AM EDT [facility] Tramadol Negative Negative 10/16/2024 9:48 AM EDT [facility] Trazadone/ Trazadone metabolite Negative Negative 10/16/2024 9:48 AM EDT [facility] Trimethoprim Negative Negative 10/16/2024 9:48 AM EDT [facility] Valproic Acid Negative Negative 10/16/2024 9:48 AM EDT [facility] Venlafaxine Negative Negative 10/16/2024 9:48 AM EDT [facility] Verapamil Negative Negative 10/16/2024 9:48 AM EDT [facility] Zolpidem Negative Negative 10/16/2024 9:48 AM EDT [facility] Xylazine Negative Negative 10/16/2024 9:48 AM EDT [facility] Urine Urine specimen obtained by clean catch procedure / Unknown Non-blood Collection / Unknown 10/14/2024 3:04 PM EDT 10/14/2024 3:16 PM EDT us Aidan Harrison MD LAB URINE ORDERABLES Final Res ult [facility] [address] [place] [address] * Vitamin B1, Whole Blood (10/14/2024 2:35 PM EDT) VITAMIN B1, WHOLE BLOOD 128 70 - 180 nmol/L 10/17/2024 1:55 PM EDT [facility] ([facility]) Blood Arterial blood specimen / Unknown Arterial Line / Unknown 10/14/2024 2:35 PM EDT 10/14/2024 2:50 PM EDT Narrative HUBER MOTLEY) - 10/17/2024 1:55 PM EDT INTERPRETIVE INFORMATION: Vitamin B1, Whole Blood This assay measures the concentration of thiamine diphosphate (TDP), the primary active form of vitamin B1. Approximately 90 percent of vitamin B1 present in whole blood is TDP. Thiamine and thiamine monophosphate, which comprise the remaining 10 percent, are not measured. This test was developed and its performance characteristics determined by [employer]. It has not been cleared or approved by the [place] Food and Drug Administration. This test was performed in a CLIA certified laboratory and is intended for clinical purposes. Performed By: [facility] [address] [place], [place] [id number] [employer] Operator: Jasper Newsome MD, PhD CLIA Number: [id number] us Aidan Harrison MD LAB BLOOD ORDERABLES Final Res ult [facility] MICKY MOTLEY) [address] [place] [address] * (ABNORMAL) Blood gas panel with oximetry, mixed venous (10/14/2024 2:31 PM EDT) pH, Mixed Venous 7.27(L) 7.32 - 7.43 LAB HEMATOLOGY METHOD 10/14/2024 2:45 PM EDT [facility] pCO2, Mixed Venous 41 37 - 52 mmHg LAB HEMATOLOGY METHOD 10/14/2024 2:45 PM EDT [facility] pO2, Mixed Venous 34 25 - 40 mmHg LAB HEMATOLOGY METHOD 10/14/2024 2:45 PM EDT [facility] SO2, Measured, Mixed Venous 57(L) 65 - 80 % LAB HEMATOLOGY METHOD 10/14/2024 2:45 PM EDT [facility] Bicarbonate, Calculated, Mixed Venous 19(L) 22 - 26 mmol/L LAB HEMATOLOGY METHOD 10/14/2024 2:45 PM EDT [facility] Base Excess, Mixed Venous -7.6(L) -2.0 - 3.0 mmol/L LAB HEMATOLOGY METHOD 10/14/2024 2:45 PM EDT [facility] Hematocrit, Whole Blood 24.7(L) 34.0 - 45.0 % LAB HEMATOLOGY METHOD 10/14/2024 2:45 PM EDT [facility] Sodium, Whole Blood 144 136 - 145 mmol/L LAB HEMATOLOGY METHOD 10/14/2024 2:45 PM EDT [facility] Potassium, Whole Blood 3.6 3.6 - 4.9 mmol/L LAB HEMATOLOGY METHOD 10/14/2024 2:45 PM EDT [facility] Chloride, Whole Blood 113(H) 97 - 107 mmol/L LAB HEMATOLOGY METHOD 10/14/2024 2:45 PM EDT [facility] Ionized Calcium, Whole Blood 4.6 4.6 - 5.1 mg/dL LAB HEMATOLOGY METHOD 10/14/2024 2:45 PM EDT [facility] Glucose, Whole Blood 110(H) 74 - 99 mg/dL LAB HEMATOLOGY METHOD 10/14/2024 2:45 PM EDT [facility] Oxyhemoglobin, Mixed Venous, Whole Blood 56.2 40.0 - 70.0 % LAB HEMATOLOGY METHOD 10/14/2024 2:45 PM EDT [facility] Hemoglobin Reduced, Mixed Venous, Whole Blood 41.8 % LAB HEMATOLOGY METHOD 10/14/2024 2:45 PM EDT [facility] Total Hemoglobin, Mixed Venous, Whole Blood 8.1(L) 11.2 - 15.7 g/dL LAB HEMATOLOGY METHOD 10/14/2024 2:45 PM EDT [facility] Blood Mixed venous blood specimen / Unknown Venipuncture / Unknown 10/14/2024 2:31 PM EDT 10/14/2024 2:43 PM EDT us Aidan Harrison MD LAB BLOOD ORDERABLES Final Res ult [facility] [address] [place] [address] * Treponema Pallidum (Syphilis) Antibodies with Reflex to RPR and RPR Titer (Those with NO known Syphilis) (10/14/2024 9:44 AM EDT) Syphilis Antibody (IgG+IgM) Nonreactive Nonreactive 10/14/2024 11:42 AM EDT [facility] Comment:Nonreactive. No sero logic evidence of syphilis. No follow-up necessary unless clinically indicated (e.g., early syphilis). Blood Venous blood specimen / Unknown Venipuncture / Unknown 10/14/2024 9:44 AM EDT 10/14/2024 10:25 AM EDT us Aidan Harrison MD LAB BLOOD ORDERABLES Final Res ult Performing Organization Address [facility] Co de Phone Number [facility] [address] [place] [address] * (ABNORMAL) T3 (10/14/2024 9:44 AM EDT) T3, Serum 47(L) 87 - 187 ng/dL 10/14/2024 11:57 PM EDT [facility] Blood Venous blood specimen / Unknown Venipuncture / Unknown 10/14/2024 9:44 AM EDT 10/14/2024 10:25 AM EDT us Aidan Harrison MD LAB BLOOD ORDERABLES Final Res ult Performing Organization Address [facility] [place] [address] * MO CRITICAL CARE, E/M 30-74 MINUTES [...] LAB HEMATOLOGY METHOD 10/14/2024 7:58 AM EDT [facility] pCO2, Arterial 35 35 - 48 mmHg LAB HEMATOLOGY METHOD 10/14/2024 7:58 AM EDT [facility] pO2, Arterial 75(L) >80 mmHg LAB HEMATOLOGY METHOD 10/14/2024 7:58 AM EDT [facility] SO2, Measured, Arterial 96 94 - 98 % LAB HEMATOLOGY METHOD 10/14/2024 7:58 AM EDT [facility] Base Excess, Arterial -7.8(L) -2.0 - 3.0 mmol/L LAB HEMATOLOGY METHOD 10/14/2024 7:58 AM EDT [facility] Bicarbonate, Calculated, Arterial 18(L) 22 - 26 mmol/L LAB HEMATOLOGY METHOD 10/14/2024 7:58 AM EDT [facility] Hematocrit, Whole Blood 24.5(L) 34.0 - 45.0 % LAB HEMATOLOGY METHOD 10/14/2024 7:58 AM EDT [facility] Sodium, Whole Blood 142 136 - 145 mmol/L LAB HEMATOLOGY METHOD 10/14/2024 7:58 AM EDT [facility] Potassium, Whole Blood 3.9 3.6 - 4.9 mmol/L LAB HEMATOLOGY METHOD 10/14/2024 7:58 AM EDT [facility] Chloride, Whole Blood 114(H) 97 - 107 mmol/L LAB HEMATOLOGY METHOD 10/14/2024 7:58 AM EDT [facility] Glucose, Whole Blood 100(H) 74 - 99 mg/dL LAB HEMATOLOGY METHOD 10/14/2024 7:58 AM EDT [facility] Ionized Calcium, Whole Blood 4.5(L) 4.6 - 5.1 mg/dL LAB HEMATOLOGY METHOD 10/14/2024 7:58 AM EDT [facility] Lactate, Arterial, Whole Blood 0.7 0.5 - 1.6 mmol/L LAB HEMATOLOGY METHOD 10/14/2024 7:58 AM EDT [facility] Blood Arterial blood specimen / Unknown Arterial Puncture / Unknown 10/14/2024 7:52 AM EDT 10/14/2024 7:55 AM EDT Aidan Harrison MD LAB BLOOD ORDERABLES Final Res ult Performing Organization Address City/[facility]/[place] [address] * (ABNORMAL) BETA HYDROXYBUTYRIC ACID (10/14/2024 6:25 AM EDT) Beta-Hydroxybu tyric Acid, Plasma 1.36(H) <=0.27 mmol/L 10/14/2024 7:30 AM EDT [facility] Blood Venous blood specimen / Unknown Venipuncture / Unknown 10/14/2024 6:25 AM EDT 10/14/2024 6:33 AM EDT Aidan Harrison MD LAB BLOOD ORDERABLES Final Res ult Performing Organization Address City/[facility]/[place] [address] * TSH (10/14/2024 6:25 AM EDT) Thyroid Stimulating Hormone, Plasma 2.89 0.40 - 4.20 uIU/mL 10/14/2024 2:24 PM EDT [facility] Blood Venous blood specimen / Unknown Venipuncture / Unknown 10/14/2024 6:25 AM EDT 10/14/2024 6:33 AM EDT us Aidan Harrison MD LAB BLOOD ORDERABLES [place] [address] * T4, free (10/14/2024 6:25 AM EDT) Free T4, Plasma 1.6 0.8 - 1.7 ng/dL 10/14/2024 2:24 PM EDT [facility] Blood Venous blood specimen / Unknown Venipuncture / Unknown 10/14/2024 6:25 AM EDT 10/14/2024 6:33 AM EDT us Aidan Harrison MD LAB BLOOD ORDERABLES Final Res ult Performing Organization Address [facility] Co de Phone Number [facility] [address] [place] [address] * Ionized calcium, serum (10/14/2024 12:22 AM EDT) Ionized Calcium, Serum 4.8 4.6 - 5.3 mg/dL LAB HEMATOLOGY METHOD 10/14/2024 12:56 AM EDT [facility] Blood Venous blood specimen / Unknown Venipuncture / Unknown 10/14/2024 12:22 AM EDT 10/14/2024 12:34 AM EDT us Kasey Win MD LAB BLOOD ORDERABLES Final Res ult Performing Organization Address [facility] [place] [address] * XR Hand Right 3+ Views (10/13/2024 [...] MD on 10/14/2024 7:56 AM Dariela Potter RN IMG XR PROCEDURES Final Resu lt * CT Head wo IV Contrast (10/13/2024 [...] signing this report, I, the attending physician, arlette I have personally reviewed the images/data for the aboveexamination(s) and agree with the final edited report. Drafted by Glen Pinto MD on 10/13/2024 6:52 PM Final report signed by Donald Lemos MD on 10/14/2024 2:18 AM us Aidan Harrison MD IMG CT PROCEDURES Final Result * (ABNORMAL) Troponin T, High Sensitivity, 2 Hour, Plasma (10/13/2024 9:40 AM EDT) Troponin T, High Sensitivity, 2 Hour 38(H) <14 ng/L 10/13/2024 10:18 AM EDT [facility] Troponin Delta 2 <10 ng/L 10/13/2024 10:18 AM EDT [facility] Troponin Delta Interpretation Not Significant 10/13/2024 10:18 AM EDT [facility] Comment:Not Significant. No acute change in troponin observed between the baseline and 2 hour samples. Blood Arterial blood specimen / Unknown Arterial Line / Unknown 10/13/2024 9:40 AM EDT 10/13/2024 9:50 AM EDT us Cat Jamison MD LAB BLOOD ORDERABLES Final Result [facility] [address] [place] [address] * MO INSERT NON-TUNNEL CV CATH, HC INSERT NON-TUNNEL CV CATH, CVC TRIPLE LUMEN (SMARTFORM LINK) (10/13/2024 9:26 AM EDT) Narrative Aidan Harrsion MD - 10/13/2024 9:26 AM EDT Aidan Harrison MD 10/13/2024 3:36 PM Central Line Performed by: Jada Lazaro MD Authorized by: Aidan Harrison MD Consent: Consent obtained: Verbal Consent given by: Patient Risks, benefits, and alternatives were discussed: yes Alternatives discussed: No treatment [place] protocol: Procedure explained and questions answered to [...] Procedure completion: Tolerated well, no immediate complications Aidan Harrison MD IN CLINIC/BEDSIDE ORDERABLES F [...] Bleeding, infection, ischemia, repeat procedure and pain [place] protocol: Procedure explained and questions answered to [...] ISCV LV MASS(C)D 187 g JESUS ISCV [place] CV ECHO LV MASS INDEX 118 g/m2 [...] is no recent study available for direct [id number] comparison. Left Ventricle The left ventricle is [...] is no recent study available for direct [id number] comparison. us Cat Jamison MD CV ECHO PROCEDURES Final R esult * Lactate, venous (10/13/2024 6:35 AM EDT) Lactate, Venous, Whole Blood 0.8 0.5 - 2.2 mmol/L LAB HEMATOLOGY METHOD 10/13/2024 6:40 AM EDT [facility] Blood Venous blood specimen / Unknown Venipuncture / Unknown 10/13/2024 6:35 AM EDT 10/13/2024 6:39 AM EDT us Kasey Win MD LAB BLOOD ORDERABLES Final Res ult Performing Organization Address City/[facility]/ZIP Co de Phone Number [facility] [address] [place] [address] * Blood Culture (Aerobic/Anaerobet Set) (10/13/2024 6:35 AM EDT) Culture No growth at day 5 LANA 10/18/2024 8:02 AM EDT [facility] Blood Venous blood specimen / Unknown Venipuncture / Unknown 10/13/2024 6:35 AM EDT 10/13/2024 7:18 AM EDT us Kasey Win MD LAB MICROBIOLOGY - GENERAL ORD ERABLES Final Result Performing Organization Address City/[facility]/[place] [address] * Urine Rao Panel (10/13/2024 6:08 AM EDT) Extra Reflex urine culture not indicated 10/13/2024 8:02 AM EDT [facility] Urine Urine specimen obtained by clean catch procedure / Unknown Non-blood Collection / Unknown 10/13/2024 6:08 AM EDT 10/13/2024 6:33 AM EDT us Kasey Win MD LAB URINE ORDERABLES Final Res ult Performing Organization Address City/[facility]/[place] [address] * Urinalysis Microscopic Examination (10/13/2024 6:08 AM EDT) Urine Urine specimen obtained by clean catch procedure / Unknown Non-blood Collection / Unknown 10/13/2024 6:08 AM EDT 10/13/2024 6:21 AM EDT us Kasey Win MD LAB URINE ORDERABLES Final Res ult [facility] [address] [place] [address] * (ABNORMAL) Urinalysis with reflex microscopic (Culture NOT Included) (10/13/2024 6:08 AM EDT) Only the most recent of2 resultswithin the time period is included. Color, Urine Yellow LAB URINALYSIS - AUTOMATED METHOD 10/13/2024 7:07 AM EDT [facility] Clarity, Urine Clear LAB URINALYSIS - AUTOMATED METHOD 10/13/2024 7:07 AM EDT [facility] Spec [place], Urine 1.016 1.005 - 1.030 LAB URINALYSIS - AUTOMATED METHOD 10/13/2024 7:07 AM EDT [facility] pH, Urine 6.5 5.0 - 8.0 LAB URINALYSIS - AUTOMATED METHOD 10/13/2024 7:07 AM EDT [facility] Protein, Urine Trace(A) Negative mg/dL LAB URINALYSIS - AUTOMATED METHOD 10/13/2024 7:07 AM EDT [facility] Glucose, Urine Negative Negative mg/dL LAB URINALYSIS - AUTOMATED METHOD 10/13/2024 7:07 AM EDT [facility] Ketones, Urine Negative Negative mg/dL LAB URINALYSIS - AUTOMATED METHOD 10/13/2024 7:07 AM EDT [facility] Blood, Urine Negative Negative LAB URINALYSIS - AUTOMATED METHOD 10/13/2024 7:07 AM EDT [facility] Bilirubin, Urine Negative Negative LAB URINALYSIS - AUTOMATED METHOD 10/13/2024 7:07 AM EDT [facility] Urobilinogen, Urine 0.2 0.2 to 1.0 mg/dL LAB URINALYSIS - AUTOMATED METHOD 10/13/2024 7:07 AM EDT [facility] Leukocytes, Urine Small(A) Negative LAB URINALYSIS - AUTOMATED METHOD 10/13/2024 7:07 AM EDT [facility] Nitrite, Urine Negative Negative LAB URINALYSIS - AUTOMATED METHOD 10/13/2024 7:07 AM EDT [facility] RBC, Urine <1 0 to 3 /HPF LAB URINALYSIS - AUTOMATED METHOD 10/13/2024 7:07 AM EDT [facility] WBC, Urine 6 - 10(A) 0 to 5 /HPF LAB URINALYSIS - AUTOMATED METHOD 10/13/2024 7:07 AM EDT [facility] Squamous Epithelial Cells 0 - 2 0 to 5 /HPF LAB URINALYSIS - AUTOMATED METHOD 10/13/2024 7:07 AM EDT [facility] Hyaline Casts 0 - 2 0 to 5 /LPF LAB URINALYSIS - AUTOMATED METHOD 10/13/2024 7:07 AM EDT [facility] Bacteria, Urine Negative Negative LAB URINALYSIS - AUTOMATED METHOD 10/13/2024 7:07 AM EDT [facility] Urine Urine specimen obtained by clean catch procedure / Unknown Non-blood Collection / Unknown 10/13/2024 6:08 AM EDT 10/13/2024 6:21 AM EDT us Kasey Win MD LAB URINE ORDERABLES Final Res ult [facility] [address] [place] [address] * Viv auris Surveillance by PCR (10/13/2024 6:05 AM EDT) Viv auris PCR Result Not Detected Not Detected 10/13/2024 12:18 PM EDT [facility] Swab (Axilla and Groin) Non-blood Collection / Unknown 10/13/2024 6:05 AM EDT 10/13/2024 6:31 AM EDT Narrative [facility] - 10/13/2024 12:18 PM EDT This PCR assay was developed and its performance characteristics determined by [facility] as appropriate for clinical purposes. This assay has not been cleared or approved by the FDA, but is performed in a CLIA regulated laboratory that is qualified to perform high-complexity testing. us Kasey Win MD LAB MICROBIOLOGY - GENERAL ORD ERABLES Final Result [facility] [address] [place] [address] * (ABNORMAL) Multi Drug Resistance Test (10/13/2024 6:05 AM EDT) Culture Klebsiella pneumoniae ESBL(AA) LANA 10/17/2024 11:07 AM EDT [facility] Comment: The organism value for this result has been updated. These results have been appended to the previously preliminary verified report. The organism value for this result has been updated. These results have been appended to the previously preliminary verified report. Swab (Nares and Rachel Rectal) Non-blood Collection / Unknown 10/13/2024 6:05 AM EDT 10/13/2024 6:31 AM EDT Narrative [facility] - 10/17/2024 11:07 AM EDT This test was developed and its performance characteristics determined by the [facility]. Although the media is FDA-approved, it is not FDA-approved for all specimen types submitted. The FDA has determined that such clearance or approval is not necessary. This test is used for surveillance purposes. It should not be regarded as investigational or for research. The [facility] is certified under [...] ESBL Trimethoprim/Sulfamethoxazo le LANA >2/38 ug/ml: Resistant Kasey Win MD LAB MICROBIOLOGY - GENERAL ORD ERABLES Final Result Performing Organization Address [facility] [place] [address] * Methicillin Resistant Staphylococcus aureus (MRSA) by PCR (10/13/2024 6:05 AM EDT) Methicillin Resistant Staphylococcus aureus (MRSA) by PCR Not Detected Not Detected 10/13/2024 9:07 AM EDT [facility] Swab Both anterior nares / Unknown Non-blood Collection / Unknown 10/13/2024 6:05 AM EDT 10/13/2024 7:18 AM EDT Narrative [facility] - 10/13/2024 9:07 AM EDT This test is FDA approved for use with nares swab specimens using the eSwabs. This test is used for clinical purposes. It should not be regarded as investigational or for research. This laboratory is certified under the Clinical Laboratory improvement Amendments of 1988 (CLIA-88 as qualified to perform high complexity clinical laboratory testing. Kasey Win MD LAB MICROBIOLOGY - GENERAL ORD ERABLES Final Result Performing Organization Address [facility] de Phone Number [facility] [address] [place] [address] * (ABNORMAL) Troponin T, High Sensitivity, 0 Hour Plasma, Reflex to 2 Hour (10/13/2024 5:18 AM EDT) Troponin T, High Sensitivity, 0 Hour 36(H) <14 ng/L 10/13/2024 6:21 AM EDT [facility] Blood Venous blood specimen / Unknown Venipuncture / Unknown 10/13/2024 5:18 AM EDT 10/13/2024 5:24 AM EDT Result [facility] Cat Jamison MD LAB BLOOD ORDERABLES Final Result Performing Organization Address City/[facility]/ZIP Co de Phone Number [facility] [address] [place] [address] * (ABNORMAL) N-Terminal Probnp (10/13/2024 5:18 AM EDT) N-Terminal, PROBNP, Plasma 1,081(H) 0 - 899 pg/mL 10/13/2024 6:21 AM EDT [facility] Blood Venous blood specimen / Unknown Venipuncture / Unknown 10/13/2024 5:18 AM EDT 10/13/2024 5:24 AM EDT us Kasey Win MD LAB BLOOD ORDERABLES Final Res ult Performing Organization Address [facility]/ZIP Co de Phone Number [facility] [address] [place] [address] * CT Bony Pelvis (10/13/2024 3:57 AM [...] 6.6(H) <5.7 % 10/13/2024 12:54 PM EDT [facility] Blood Venous blood specimen / Unknown Venipuncture / Unknown 10/13/2024 3:44 AM EDT 10/13/2024 3:46 AM EDT Narrative [facility] - 10/13/2024 12:54 PM EDT HA1C Interpretive Data: Diagnosis of Diabetes: Diabetic > or = 6.5% Pre-diabetic 5.7 to 6.4% Non-diabetic < or = 5.6% Glycemic Targets for Type I and Type II Diabetics: Non- Adults <7.0% Adults <6.0% Children and Adolescents <7.5% Source: [place] [employer]. Standards of medical care in diabetes,2017. Diabetes Care.2017:40 (suppl 1):S1-S135. us Kasey Win MD LAB BLOOD ORDERABLES Final Res ult [facility] [address] [place] [address] * (ABNORMAL) Blood gas, venous (10/13/2024 3:44 AM EDT) pH, Venous 7.29(L) 7.32 - 7.43 LAB HEMATOLOGY METHOD 10/13/2024 3:55 AM EDT [facility] pCO2, Venous 37 37 - 52 mmHg LAB HEMATOLOGY METHOD 10/13/2024 3:55 AM EDT [facility] pO2, Venous 26 25 - 40 mmHg LAB HEMATOLOGY METHOD 10/13/2024 3:55 AM EDT [facility] SO2, Measured, Venous 44(L) 65 - 80 % LAB HEMATOLOGY METHOD 10/13/2024 3:55 AM EDT [facility] Base Excess, Venous -8.5(L) -2.0 - 3.0 mmol/L LAB HEMATOLOGY METHOD 10/13/2024 3:55 AM EDT [facility] Bicarbonate, Calculated, Venous 17(L) 22 - 26 mmol/L LAB HEMATOLOGY METHOD 10/13/2024 3:55 AM EDT [facility] Hematocrit, Whole Blood 29.1(L) 34.0 - 45.0 % LAB HEMATOLOGY METHOD 10/13/2024 3:55 AM EDT [facility] Sodium, Whole Blood 134(L) 136 - 145 mmol/L LAB HEMATOLOGY METHOD 10/13/2024 3:55 AM EDT [facility] Potassium, Whole Blood 4.3 3.6 - 4.9 mmol/L LAB HEMATOLOGY METHOD 10/13/2024 3:55 AM EDT [facility] Chloride, Whole Blood 107 97 - 107 mmol/L LAB HEMATOLOGY METHOD 10/13/2024 3:55 AM EDT [facility] Glucose, Whole Blood 112(H) 74 - 99 mg/dL LAB HEMATOLOGY METHOD 10/13/2024 3:55 AM EDT [facility] Lactate, Venous, Whole Blood 1.2 0.5 - 2.2 mmol/L LAB HEMATOLOGY METHOD 10/13/2024 3:55 AM EDT [facility] Ionized Calcium, Whole Blood 4.8 4.6 - 5.1 mg/dL LAB HEMATOLOGY METHOD 10/13/2024 3:55 AM EDT [facility] Blood Venous blood specimen / Unknown Venipuncture / Unknown 10/13/2024 3:44 AM EDT 10/13/2024 3:53 AM EDT us Derik Renae MD LAB BLOOD ORDERABLES Final Resu lt [facility] [address] [place] [address] * Drug Abuse Screen, Urine (10/12/2024 11:56 PM EDT) Amphetamine Screen Urine Negative Cutoff: 500 ng/mL 10/13/2024 12:45 AM EDT [facility] Benzodiazepines Screen Urine Negative Cutoff: 200 ng/mL 10/13/2024 12:45 AM EDT [facility] Cannabinoid Screen Urine Negative Cutoff: 50 ng/mL 10/13/2024 12:45 AM EDT [facility] Cocaine Screen Urine Negative Cutoff: 300 ng/mL 10/13/2024 12:45 AM EDT [facility] Barbiturate Screen Urine Negative Cutoff: 200 ng/mL 10/13/2024 12:45 AM EDT [facility] Opiate Screen Urine Negative Cutoff: 300 ng/mL 10/13/2024 12:45 AM EDT [facility] Methadone Screen Urine Negative Cutoff: 300 ng/mL 10/13/2024 12:45 AM EDT [facility] Buprenorphine Screen Urine Negative Cutoff: 10 ng/mL 10/13/2024 12:45 AM EDT [facility] Fentanyl Screen Urine Negative Cutoff: 1 ng/mL 10/13/2024 12:45 AM EDT [facility] Oxycodone Screen Urine Negative Cutoff: 100 ng/mL 10/13/2024 12:45 AM EDT [facility] Urine Urine specimen obtained by clean catch procedure / Unknown Non-blood Collection / Unknown 10/12/2024 11:56 PM EDT 10/13/2024 12:13 AM EDT us Cat Jamison MD LAB URINE ORDERABLES Final Result [facility] [address] [place] [address] * (ABNORMAL) Anti Xa Level Low Molecular Weight (10/12/2024 11:56 PM EDT) Anti Xa Level Low Molecular Weight Heparin >2.00(HH) <2.00 IU/mL 10/13/2024 1:02 AM EDT [facility] Blood Venous blood specimen / Unknown Venipuncture / Unknown 10/12/2024 11:56 PM EDT 10/13/2024 12:01 AM EDT Narrative [facility] - 10/13/2024 1:02 AM EDT Therapeutic Range: LMWH enoxaparin 1mg/kg/dose, 12hrs - peak (3-5 hours after dose): 0.5 - 1.0 IU/mL LMWH enoxaparin 1.5mg/kg/dose, 24hrs - peak (3-5 hours after dose): 1.0 - 2.0 IU/mL LMWH enoxaparin prophylaxis: Not established us Derik Renae MD LAB BLOOD ORDERABLES Final Resu lt Performing Organization Address City/[facility]/ZIP Co de Phone Number [facility] [address] [place] [address] * Red Blood Cell Antibody with Antigen Notification (10/12/2024 11:55 PM EDT) Notification, Gabriela Blood Cell Antibody with Antigen During your recent admission to the [facility], laboratory testing performed in the blood [...] do not hesitate to call me at [phone]. No defined reference value 10/14/2024 4:24 PM EDT BLOOD BANK Pathologist Signature, Red Blood Cell Antibody with Antigen Reviewed by: Srikanth Watson MD 10/14/2024 4:24 PM EDT [facility] Blood Venous blood specimen / Unknown Venipuncture / Unknown 10/12/2024 11:55 PM EDT 10/13/2024 12:04 AM EDT us Aidan Harrison MD LAB BLOOD BANK TEST ORDERABLES Final Result Performing Organization Address [facility] Co de Phone Number BLOOD BANK [address] [place] [address], * ED HIV 1/2 Antibody/Antigen Screen w/Reflex to HIV 1/2 Differentiation (10/12/2024 11:55 PM EDT) HIV 1 & 2 Antibody/Antigen Screen Non Reactive Non Reactive 10/13/2024 12:58 AM EDT [facility] Comment:Screening for HIV 1 & 2 antibodies, and P24 antigen is NONREACTIVE. No confirmatory testing is required. Blood Venous blood specimen / Unknown Venipuncture / Unknown 10/12/2024 11:55 PM EDT 10/13/2024 12:12 AM EDT us Cat Jamison MD LAB BLOOD ORDERABLES Final Result Performing Organization Address City/[facility]/ZIP Co de Phone Number [facility] [address] [place] [address] * (ABNORMAL) Trauma shock panel blood gas (10/12/2024 11:55 PM EDT) pH, Venous 7.23(LL) 7.32 - 7.43 LAB HEMATOLOGY METHOD 10/13/2024 12:06 AM EDT [facility] Bicarbonate, Calculated, Venous 17(L) 22 - 26 mmol/L LAB HEMATOLOGY METHOD 10/13/2024 12:06 AM EDT [facility] Base Excess, Venous -10.0(L) -2.0 - 3.0 mmol/L LAB HEMATOLOGY METHOD 10/13/2024 12:06 AM EDT [facility] Lactate, Venous, Whole Blood 1.8 0.5 - 2.2 mmol/L LAB HEMATOLOGY METHOD 10/13/2024 12:06 AM EDT [facility] Blood Venous blood specimen / Unknown Venipuncture / Unknown 10/12/2024 11:55 PM EDT 10/13/2024 12:02 AM EDT us Cat Jamison MD LAB BLOOD ORDERABLES Final Result Performing Organization Address City/[facility]/ZIP Co de Phone Number [facility] [address] [place] [address] * Ethyl Alcohol Plasma (10/12/2024 11:55 PM EDT) Ethanol Plasma <10 <10 mg/dL 10/13/2024 12:55 AM EDT [facility] Blood Venous blood specimen / Unknown Venipuncture / Unknown 10/12/2024 11:55 PM EDT 10/13/2024 12:12 AM EDT Narrative [facility] - 10/13/2024 12:55 AM EDT Enzymatic Assay: Performed on [employer]. us Cat Jamison MD LAB BLOOD ORDERABLES Final Result [facility] [address] [place] [address] * Hepatitis C Antibody - ED (10/12/2024 11:55 PM EDT) [facility] Hepatitis C Antibody Negative Negative 10/13/2024 12:58 AM EDT [facility] Blood Venous blood specimen / Unknown Venipuncture / Unknown 10/12/2024 11:55 PM EDT 10/13/2024 12:12 AM EDT Cat Jamison MD LAB BLOOD ORDERABLES Final Result Performing Organization Address [facility]/ZIP Co de Phone Number [facility] [address] [place] [address] * (ABNORMAL) TEG Global Hemostasis with Lysis (10/12/2024 11:55 PM EDT) [facility] R, Lysis 9.3(H) 4.6 - 9.1 min 10/13/2024 1:21 AM EDT [facility] MA, Rapid, Lysis 69.9 52.0 - 70.0 mm 10/13/2024 1:21 AM EDT [facility] MA, Fibrinogen, Lysis 32.5(H) 15.0 - 32.0 mm 10/13/2024 1:21 AM EDT [facility] LY30 0.8 0.0 - 2.6 % 10/13/2024 1:21 AM EDT [facility] Blood Venous blood specimen / Unknown Venipuncture / Unknown 10/12/2024 11:55 PM EDT 10/13/2024 12:17 AM EDT Cat Jamison MD LAB BLOOD ORDERABLES Final Result Performing Organization Address City/[facility]/ZIP Co de Phone Number [facility] [address] [place] [address] * (ABNORMAL) APTT (PTT) (10/12/2024 11:55 PM EDT) [facility] aPTT 36(H) 25 - 35 sec 10/13/2024 12:15 AM EDT [facility] Blood Venous blood specimen / Unknown Venipuncture / Unknown 10/12/2024 11:55 PM EDT 10/13/2024 12:01 AM EDT us Cat Jamison MD LAB BLOOD ORDERABLES Final Result [facility] [address] [place] [address] * (ABNORMAL) PT-INR (10/12/2024 11:55 PM EDT) Prothrombin Time 20.2(H) 12.0 - 14.3 sec 10/13/2024 12:14 AM EDT [facility] INR 1.7(H) 0.9 - 1.1 10/13/2024 12:14 AM EDT [facility] Blood Venous blood specimen / Unknown Venipuncture / Unknown 10/12/2024 11:55 PM EDT 10/13/2024 12:01 AM EDT Narrative [facility] - 10/13/2024 12:14 AM EDT OPTIMAL INR RANGES FOR PATIENT ON ORAL ANTICOAGULANT THERAPY Prevention of venous thromboembolism INR 2.0 to 3.0 In patients with heart disease: Atrial fibrillation INR 2.0 to 3.0 Valvular heart disease INR 2.0 to 3.0 Tissue heart valves INR 2.0 to 3.0 Mechanical prosthetic valves INR 2.5 to 3.5 Prevention of recurrent GA INR 2.5 to 3.5 us Cat Jamison MD LAB BLOOD ORDERABLES Final Result [facility] [address] [place] [address] * Test Qualitative Plasma (10/12/2024 11:55 PM EDT) Test Negative Negative 10/13/2024 1:02 AM EDT [facility] Blood Venous blood specimen / Unknown Venipuncture / Unknown 10/12/2024 11:55 PM EDT 10/13/2024 12:12 AM EDT Narrative [facility] - 10/13/2024 1:02 AM EDT Reference Range: Males and non- females: Negative. us Cat Jamison MD LAB BLOOD ORDERABLES Final Result [facility] [address] [place] [address] * CT OUTSIDE IMAGES (10/12/2024 8:15 PM EDT) Only the most recent of3 resultswithin the time period is included. Anatomical Region Laterality Modality Computed Tomogra phy 10/12/2024 8:15 PM EDT us Tito Madrid MD IMG CT PROCEDURES Final Result from Last 3 Months Additional Health Concerns Infection Onset Date Last Indicated ESBL 10/13/2024 10/13/2024 Insurance MEDICARE Advance Directives Documents on File Type Date Recorded Patient Lapper Expl anation Advance Directives and Livin g Will 10/14/2024 4:42 PM Advance Directives and Livin g Will 10/13/2024 6:35 AM * Full Code (Latest Code Status on File) Date Activated Date Inactivated Comments 10/13/2024 5:26 AM 10/30/2024 7:10 PM Question Answer Comments I have reviewed the capacity from the link above and, if needed, have updated to appropriate status: Yes Care Teams Yard Switch Operator Relationship Specialty Start Date End Date Cosme Davis MD [address] [phone] PCP - General 06/24/20
--- OUTSIDE RECORDS SUMMARY | 2024-12-18 09:17 | XMS_ITS | Encounter Summary ---
Author Organization [employer] ([place], [place], [place], [place], [place]) Address [address] [place] [address] Care Team Providers Care Olericulturist Name Role Phone Unavailable Primary Care Provider Unavailabl e Encounter Details Date Type Department Care Team (Late st Contact Info) Description 03/23/2018 Transcribed Document [facility] [address] [place] [address] ProviderZion MD [address] [place] [address] Social History Tobacco Use Types [...] - Historical ProviderMD - 03/23/2018 5:28 PM VIDEO PRODUCTION ASSISTANT Admission History, Adult Entered On: 03/23/2018 17:38 [...] 17:28 EST General Info Contact Password : Daledoug Want Family/Rep/Phys Notified of Admit : No Emergency Contact #1 : Quynh Cronin Emergency Contact #1 Emergency Contact #1 Relationship : daughter Emergency Contact #2 : Monik Pichardo Emergency Contact #2 Emergency Contact #2 Relationship : sister Primary Language : Palauan Preferred Communication Mode : Verbal Communication Barrier [...] Scale Risk Level : 25-45 Medium Risk [place] Fall Interventions : Adequate lighting, Assistive devices [...] Source : Stated Height Entry Format : Bradford Height, Feet : 5 ft(Converted to: 152 [...] Body Mass Index : 31.4 kg/m2 (HI) Eastern Body Weight : 47 kg Demetri Arrington [...] - 03/23/2018 17:28 EST Electronically signed by Jorge Alberto, [facility] Conversion Rand Sewer Cerner at 05/29/2022 8:46 PM CDT documented in this encounter Plan of Treatment Not on file documented as of this encounter Visit Diagnoses Not on filedocumented in this encounter
--- OUTSIDE RECORDS SUMMARY | 2024-12-18 09:17 | XMS_ITS | Encounter Summary ---
Author Organization [employer] ([place], [place], [place], [place]) Address [address] [place] [address] Care Team Providers Care Baseball Scout Name Role Phone Unavailable Primary Care Provider Unavailabl e Encounter Details Date Type Department Care Team (Late st Contact Info) Description 03/23/2018 Transcribed Document [facility] [place] [address] [place] [address] ProviderZion MD [address] [place], [place] [id number] Social History Tobacco Use Types Packs/Day Years Used Date Smoking Tobacco: Never Assessed Comments Unknown Sex and Gender Information Value Date Recorded Sex Assigned at Not on file Legal Sex Female 4:39 PM CDT Gender Identity Not on file Sexual Orientation Not on file documented as of this encounter Miscellaneous Notes * Cerner Conversion Note - Historical ProviderMD - 03/23/2018 9:00 AM KIER HAND Consult Phone Call Documentation Entered On: 03/23/2018 [...]
--- OUTSIDE RECORDS SUMMARY | 2024-12-18 09:17 | XMS_ITS | Encounter Summary ---
Author Organization [employer] ([place], [place], [place], [place]) Address [address] [place] [address] Care Team Providers Care Security Supervisor Name Role Phone Unavailable Primary Care Provider Unavailabl e Encounter Details Date Type Department Care Team (Late st Contact Info) Description 03/23/2018 Transcribed Document [facility] Family Medicine [address] [place] [address] ProviderZion MD [address] [place], [place] [id number] Social History Tobacco Use Types Packs/Day Years Used Date Smoking Tobacco: Never Assessed Comments Unknown Sex and Gender Information Value Date Recorded Sex Assigned at Not on file Legal Sex Female 4:39 PM CDT Gender Identity Not on file Sexual Orientation Not on file documented as of this encounter Miscellaneous Notes * Cerner Conversion Note - Zion ProviderMD - 03/23/2018 7:32 PM CLINICAL RESEARCH NURSE DATE OF ADMISSION: 03/23/2018 PRIMARY CARE PHYSICIAN: [...] has been evaluated there and transferred to [facility]. Patient was at [facility] ER, came in, laying in bed, mild distress, [...]
--- OUTSIDE RECORDS SUMMARY | 2024-12-18 09:17 | XMS_ITS | Encounter Summary ---
Author Organization [employer] ([place], [place], [place], [place], [place]) Address [address] [place] [address] Care Team Providers Care Lighting Equipment Operator Name Role Phone Unavailable Primary Care Provider Unavailabl e Encounter Details Date Type Department Care Team (Late st Contact Info) Description 03/29/2018 Transcribed Document [facility] Radiology [address] [place] [address] [place] [address] [place] [address] Social History Tobacco Use Types Packs/Day [...] Rocephin: 2 Gram, 100 mL/Hr, IV Piggyback, [id number] Tylenol: 650 mg, Oral, Q4H, PRN: Other [...] 0 Refill(s) Rocephin: 2 Gram, IV Piggyback, [id number], 0 Refill(s) carvedilol 3.125 mg oral tablet: [...] At Bedtime Rocephin 2 Gram, IV Piggyback, [id number] , Medications (26) Active Scheduled: (14) aspirin EC 81 mg tab 81 mg 1 Tab, Oral, Daily carvedilol 3.125 mg tab 3.125 mg 1 Tab, Oral, Daily cefTRIAXone 2 Gram, IV Piggyback, [id number] citalopram 20 mg tab 20 mg 1 [...] - Coronary artery disease / SNOMED CT 4095953447 / Confirmed Cardiomyopathy / SNOMED CT 981485687 / Confirmed HLD - Hyperlipidemia / SNOMED CT 495676237 / Confirmed HTN - Hypertension / SNOMED CT 9750844325 / Confirmed, Active Problems (14) Anxiety Atrial [...] (FEB 13) 29 (FEB 10) ALT 32 (MAR 26) 28 (MAR [...] to rehab when bed available. Discussed with immigration case manager. documented in this encounter Plan of Treatment Not on file documented as of this encounter Visit Diagnoses Not on filedocumented in this encounter
--- OUTSIDE RECORDS SUMMARY | 2024-12-18 09:17 | XMS_ITS | Encounter Summary ---
Author Organization [employer] ([place], [place], [place], [place], [place]) Address [address] [place] [address] Care Team Providers Care Instrument Maker And Repairer Name Role Phone Unavailable Primary Care Provider Unavailabl e Encounter Details Date Type Department Care Team (Late st Contact Info) Description 05/07/2018 Transcribed Document [facility] [place] Family Medicine [address] [place] [address] ProviderZion MD [address], [place] [id number] Social History Tobacco Use Types Packs/Day Years [...] 16:09 EDT Electronically signed by Jorge Alberto [facility] Conversion Heater Room Helper Cerner at 05/29/2022 8:32 PM CDT documented in this encounter Plan of Treatment Not on file documented as of this encounter Visit Diagnoses Not on filedocumented in this encounter
--- OUTSIDE RECORDS SUMMARY | 2024-12-18 09:17 | XMS_ITS | Encounter Summary ---
Author Organization [employer] ([place], [place], [place], [place], [place]) Address [address] [place] [address] Care Team Providers Care Bee Tender Name Role Phone Unavailable Primary Care Provider Unavailabl e Encounter Details Date Type Department Care Team (Late st Contact Info) Description 03/23/2018 Transcribed Document [facility] [place] Family Medicine [address] [place] [address] ProviderZion MD [address] [place] [id number] Social History Tobacco Use Types Packs/Day Years Used Date Smoking Tobacco: Never Assessed Comments Unknown Sex and Gender Information Value Date Recorded Sex Assigned at Not on file Legal Sex Female 4:39 PM CDT Gender Identity Not on file Sexual Orientation Not on file documented as of this encounter Miscellaneous Notes * Cerner Conversion Note - Historical ProviderMD - 03/23/2018 5:54 PM RIDE MECHANIC Care Management Assessment/Plan Entered On: 03/26/2018 17:47 [...] yr old W F transferred here from [facility] w/ bradycardia, positive blood cultures/strep B sepsis [...] Pt lives w/ her estranged [facility], claims she is indep w/ all activities. D/C plan pending outcome of possible pacer removal, may well be good [facility] candidate. She denies any needs now, CM will cont to follow. DEEPA GALDAMEZ, Risk Management Analyst - 03/26/2018 17:36 EST Electronically signed by Vinayak Azul Conversion Behavior Management Specialist Cerner at 05/29/2022 8:54 PM CDT documented in this encounter Plan of Treatment Not on file documented as of this encounter Visit Diagnoses Not on filedocumented in this encounter
--- OUTSIDE RECORDS SUMMARY | 2024-12-18 09:17 | XMS_ITS | Encounter Summary ---
Author Organization [employer] ([place], [place], [place], [place], [place]) Address [address] [place] [address] Care Team Providers Care Tear Down Worker Name Role Phone Unavailable Primary Care Provider Unavailabl e Encounter Details Date Type Department Care Team (Late st Contact Info) Description 05/07/2018 Transcribed Document [facility] [place] [address] [place] [address] ProviderZion MD [address] [place] [address] Social History Tobacco Use Types Packs/Day Years Used Date Smoking Tobacco: Never Assessed Comments Unknown Sex and Gender Information Value Date Recorded Sex Assigned at Not on file Legal Sex Female 4:39 PM CDT Gender Identity Not on file Sexual Orientation Not on file documented as of this encounter Miscellaneous Notes * Cerner Conversion Note - Zion Alonso MD - 05/07/2018 4:09 PM CDT Patient Education [...] you are awake and alert. ??? Take jgnr-uer-liygqxp and prescription medicines only as told by [...] 11/18/2013 Document Revised: 07/02/2016 Document Reviewed: 05/19/2016 [employer] Interactive Patient Education ? 2017 [employer] Radiology Transesophageal Echocardiogram Transesophageal echocardiography (BROCK) [...] 11/25/2009 Document Revised: 07/05/2016 Document Reviewed: 07/30/2013 [employer] Interactive Patient Education ? 2017 [employer] Electronically signed by Vinayak Azul Conversion Coupon And Bond Collection Clerk Tata at 05/29/2022 8:28 PM CDT documented in this encounter Plan of Treatment Not on file documented as of this encounter Visit Diagnoses Not on filedocumented in this encounter
--- OUTSIDE RECORDS SUMMARY | 2024-12-18 09:17 | XMS_ITS | Encounter Summary ---
Author Organization [employer] ([place], [place], [place], [place], [place]) Address [address] [place] [address] Care Team Providers Care Veterinary Dentist Name Role Phone Unavailable Primary Care Provider Unavailabl e Encounter Details Date Type Department Care Team (Late st Contact Info) Description 05/07/2018 Transcribed Document [facility] [place] Family Medicine [address] [place] [address] ProviderZion MD [address] [place] [address] Social History Tobacco Use [...]
--- OUTSIDE RECORDS SUMMARY | 2024-12-18 09:17 | XMS_ITS | Encounter Summary ---
Author Organization [employer] ([place], [place], [place], [place], [place]) Address [address] [place] [address] Care Team Providers Care Cleaning Porter Name Role Phone Unavailable Primary Care Provider Unavailabl e Encounter Details Date Type Department Care Team (Late st Contact Info) Description 03/29/2018 Transcribed Document [facility] [place] [facility] [place] [address] ProviderZion MD [address] [place] [id number] Social History Tobacco Use Types Packs/Day Years Used Date Smoking Tobacco: Never Assessed Comments Unknown Sex and Gender Information Value Date Recorded Sex Assigned at Not on file Legal Sex Female 4:39 PM CDT Gender Identity Not on file Sexual Orientation Not on file documented as of this encounter Miscellaneous Notes * Cerner Conversion Note - Zion Alonso MD - 03/29/2018 8:09 AM RN TRANSPLANT Patient: ETHAN CRONIN Age: 57 years Sex: Female : 1960 Associated Diagnoses: None Author: CARROLL HIGH MD-INF Basic Information CC: Sepsis bacteremia 03/19/18 4/4 bottles for Group b strep ([facility]), mitral prosthetic valve endocarditis History of Present Illness 57-year-old white female with history of bladder cancer, atrial flutter, pacemaker placement 2016, hypertension, DM2, COPD, pancreatitis, who recently had blood cultures obtained at [facility] on 03/19/18 for fever which were positive in 4 out of 4 bottles for group B Streptococcus. Patient was to start IV antibiotics but was found to have bradycardia and was admitted to [facility] on 03/23/17. I was consulted on 03/25/17. The patient had been started on vancomycin and Rocephin. Urine culture obtained at [facility] was positive for multiple bacteria [...] cefTRIAXone (Rocephin) - 2 Gram, IV Piggyback, [id number], infuse over 30 Minute(s), Routine Anticoagulant heparin [...] Normal strength, No tenderness. Integumentary: Warm, Dry, [place], No pallor, No rash, Left chest wall [...] 10) PTN 6.9 (MAR 26) 6.5 (MAR 23) ALB L 2.5 (MAR 26) L 2.4 (MAR 23) Troponin <0.015 (MAR 23) . Impression and Plan 1. Group B streptococcus sepsis 03/19/18 in 4 out of 4 blood culture bottles positive at [facility] (spoke to Maurice Spencer, at ST. [...] Dr. Perez's service, cardiology, and Dr. Alan.. shipping/receiving manager: Please arrange for outpatient IV antibiotics with Rocephin 2 g IV every 12 hours until 05/04/18. Follow CBC, CMP, CRP weekly while on IV antibiotics. Fax orders to [phone], and call [phone] with final arrangements. Arrange for follow-up with me in 2 weeks post discharge. documented in this encounter Plan of Treatment Not on file documented as of this encounter Visit Diagnoses Not on filedocumented in this encounter
--- OUTSIDE RECORDS SUMMARY | 2024-12-18 09:17 | XMS_ITS | Encounter Summary ---
Author Organization [employer] ([place], [place], [place], [place], [place]) Address [address] [place] [address] Care Team Providers Care Roundhouse Supervisor Name Role Phone Unavailable Primary Care Provider Unavailabl e Encounter Details Date Type Department Care Team (Late st Contact Info) Description 03/29/2018 Transcribed Document [facility] Family Medicine [address] [place] [address] ProviderZion MD [address] [place] [address] Social History Tobacco Use Types [...] - Zion ProviderMD - 03/29/2018 3:54 PM DOUGH MACHINE OPERATOR Patient Education Materials Follows:Disease Endocarditis Endocarditis [...] these instructions at home: Medicines ??? Take ifpf-ztg-effrtsj and prescription medicines only as told by [...] 01/28/2006 Document Revised: 11/09/2016 Document Reviewed: 11/09/2016 [employer] Interactive Patient Education ? 2017 [employer] documented in this encounter Plan of Treatment Not on file documented as of this encounter Visit Diagnoses Not on filedocumented in this encounter
--- OUTSIDE RECORDS SUMMARY | 2024-12-18 09:17 | XMS_ITS | Encounter Summary ---
Author Organization [employer] ([place], [place], [place], [place], [place]) Address [address] [place] [address] Care Team Providers Care Treating Plant Pumper Name Role Phone Unavailable Primary Care Provider Unavailabl e Encounter Details Date Type Department Care Team (Late st Contact Info) Description 05/07/2018 Transcribed Document [facility] [place] Family Medicine [address] [place] [address] ProviderZion MD [address] [place] [address] Social History Tobacco Use Types [...] Source : Stated Height Entry Format : [place] Height, Feet : 5 ft(Converted to: 152 cm, 60 Inch) Height, Inches : 1 Inch(Converted to: 0 ft 1 Inch, 2.54 cm) Clinical Height : 154.94 cm Weight Source : Standing scale Weight Entry Format : [place] Clinical Dosing Weight : 74.09 kg Weight, Pounds : 163 lb Body Surface Area (BSA) : 1.73 m2 Body Mass Index : 30.9 kg/m2 (HI) [place] Body Weight : 47 kg GAYLA CASE [...] 11:33 EDT General Info Contact Password : Stumpy Want Family/Rep/Phys Notified of Admit : No Emergency Contact #1 : enoch Emergency Contact #1 Phone Number : daughter Emergency Contact #1 Relationship : [phone] Emergency Contact #2 : . Emergency Contact #2 Phone Number : . Emergency Contact #2 Relationship : . Primary Language : Citizen [place] Preferred Communication Mode : Verbal Communication Barrier [...] GAYLA CASE RN - 05/07/2018 11:33 EDT Súal Scale Saúl Sensory Perception : No impairment [...] Scale Risk Level : 25-45 Medium Risk Morgan Fall Interventions : Adequate lighting, Assistive devices within reach, Personal items within reach, Reinforced to call for assistance before getting out of bed GAYLA CAES RN - 05/07/2018 11:33 EDT Valuables and Belongings Valuables and Belongings : Clothing Clothing : Common streetwear Clothing Disposition : Bedside, With family EVIEGAYLA RN - 05/07/2018 11:33 EDT Electronically signed by Jorge Alberto [facility] Conversion Chef Kitchen Manager Cerner at 05/29/2022 8:46 PM CDT documented in this encounter Plan of Treatment Not on file documented as of this encounter Visit Diagnoses Not on filedocumented in this encounter
--- OUTSIDE RECORDS SUMMARY | 2024-12-18 09:17 | XMS_ITS | Encounter Summary ---
Author Organization [employer] ([place], [place], [place], [place], [place]) Address [address] [place] [address] Care Team Providers Care Gasket Inspector Name Role Phone Unavailable Primary Care Provider Unavailabl e Encounter Details Date Type Department Care Team (Late st Contact Info) Description 03/29/2018 Transcribed Document [facility] Family Medicine [address] [place] [address] ProviderZion MD [address] [place] [address] Social History Tobacco Use Types [...] - Zion ProviderMD - 03/29/2018 11:59 PM ACCOUNT EXECUTIVE TRAINEE Patient: ETHAN CRONIN Age: 57 years Sex: [...] At Bedtime Rocephin 2 Gram, IV Piggyback, [id number]...until 05/04/18 for 6 weeks ID recommendations: continue Rocephin 2 g IV every 12 hours to continue until 05/04/18 for 6 weeks. Then may suppress afterwards with penicillin VK 250 mg by mouth twice a day for life. Follow up: ======= Follow up with PCP in 1-2 wks Follow up with Cardiology in 2-4 wks BROCK in 4-[address] Alan at [facility]. follow up with ID in 2 weeks post discharge. follow up with CTS in 4 wks Disposition: ======== Rehab Discharge Summary: 57-year-old white female with history of bladder cancer, atrial flutter, pacemaker placement 2016, hypertension, DM2, COPD, pancreatitis, who recently had blood cultures obtained at [facility] on 03/19/18 for fever which were positive in 4 out of 4 bottles for group B Streptococcus. Patient was to start IV antibiotics but was found to have bradycardia and was admitted to [facility] on 03/23/17. Urine culture obtained at [facility] was positive for multiple bacteria [...] w/ repeat BROCK in 4-6 is reasonable option given her high Surgical [...]
--- OUTSIDE RECORDS SUMMARY | 2024-12-18 09:17 | XMS_ITS | Encounter Summary ---
Author Organization [employer] ([place], [place], [place], [place], [place]) Address [address] [place] [address] Care Team Providers Care Clinical Staff Educator Name Role Phone Unavailable Primary Care Provider Unavailabl e Encounter Details Date Type Department Care Team (Late st Contact Info) Description 03/23/2018 Transcribed Document [facility] [place] [address] [place] [address] ProviderZion MD [address] [place], [place] [phone] Social History Tobacco Use Types Packs/Day Years Used Date Smoking Tobacco: Never Assessed Comments Unknown Sex and Gender Information Value Date Recorded Sex Assigned at Not on file Legal Sex Female 4:39 PM CDT Gender Identity Not on file Sexual Orientation Not on file documented as of this encounter Miscellaneous Notes * Cerner Conversion Note - Zion ProviderMD - 03/23/2018 6:37 PM SHUTTLE SPOTTER Patient: ETHAN CRONIN Age: 57 years Sex: Female : 1960 Associated Diagnoses: None Author: Anastacia Roth, Pharm.D.-Resident HPI: 57 year old female transferred from [facility] due to bradycardia during infusion. Pt has hx of CAD, CABG/pacemaker 3 years ago, DM, HTN, and SD. Pt also has hx of bacteremia and was on antibitoics outpatient and pt cannot confirm what abx she was on. Pharmacist called [facility] and confirmed that pt did not receive [...] ALB L 2.4 (FEB 10) Troponin <0.015 (FEB 10) Vitals Signs (last 24 hrs) Last Charted Minimum Maximum Temp 97.4 (B 10 17:22) 97.4 (FEB 10 17:22) 97.4 (B 10 17:22) Mon HR 48 (B 10 17:22) 48 (FEB 10 17:22) 48 (FEB 10 17:22) Resp Rate 18 (B 10 17:22) 18 (FEB 10 17:22) 18 (B 10 17:22) SBP L 88 (FEB 10 17:22) L 88 [...] Function: Scr: 1.00 CrCl: 59-75 mL/min Micro: 2/10-blood culture: pending Vanc levels: No record of [...] the consult. Pharmacy will continue to follow Jameson SummersD PGY-1 Sp[place] Box [phone] Electronically signed by Vinayak Azul Conversion Certified Prosthetist Vice President Cerner at 05/29/2022 8:34 PM CDT documented in this encounter Plan of Treatment Not on file documented as of this encounter Visit Diagnoses Not on filedocumented in this encounter
--- OUTSIDE RECORDS SUMMARY | 2024-12-18 09:17 | XMS_ITS | Encounter Summary ---
Author Organization [employer] ([place], [place], [place], [place], [place]) Address [address] [place] [address] Care Team Providers Care Head Of Biology Name Role Phone Unavailable Primary Care Provider Unavailabl e Encounter Details Date Type Department Care Team (Late st Contact Info) Description 03/29/2018 Transcribed Document [facility] [address] [place] [address] ProviderZion MD [address] [place] [address] Social History Tobacco Use Types [...] - Zion ProviderMD - 03/29/2018 3:54 PM CAR DUMPER OPERATOR [address] [place] [address] Patient Copy Patient Information: Name: ETHAN CRONIN Current Date: 03/29/2018 15:54:26 : 1960 Patient [address]: [address] [place] [id number] Patient Attending Physician: MELY WHITNEY MD Primary Care Provider: CRUZ, NOT LISTED Primary Care Provider Phone: Discharge Diagnosis: Endocarditis Weight on Admission: 165 lb, 14 oz Comment: Follow-up Instructions: With: Address: When: JOHN TSAI [address] [facility] [place] [address] Business (1) Within 1 month With: Address: When: SUJIT DUNBAR [address] [facility], [address] [place] [address] Business (1) Within 2 weeks With: Address: When: Follow up with primary care provider Within 1 to 2 weeks With: Address: When: AJAY KRYS 10:00 AM Comments: BROCK Check in at [facility] @ 10:00 NPO after midnight Discharge Instructions: Immunizations Documented During Stay: No Immunizations Found Discharge Summary Sent to: [facility] [phone] Special Instructions: Report: [facility] [phone] Heart Failure Discharge Instructions (if any): Stroke [...] these instructions at home: Medicines ??? Take sfsq-qjj-wqjwzln and prescription medicines only as told by [...] 01/28/2006 Document Revised: 11/09/2016 Document Reviewed: 11/09/2016 [employer] Interactive Patient Education ? 2017 [employer] CIGARETTE SMOKING: The facts are clear, cigarette smoking will shorten your life. Smoking can cause many illnesses along the way. As a healthcare provider, we recommend that you stop smoking. Assistance with quitting is available by contacting 6-199-QMCR-NOW. This is a free resource providing counseling, [...] Be sure to sign up for the [employer] patient portal, which gives you 24/ access to your medical information ??? including these discharge instructions ??? using your computer, smartphone, or tablet. Just go to [employer] to get started. Questions? Call . [facility] would like to thank you for allowing us to assist you with your healthcare needs. GERTRUDE Mcconnell VERONICA G, (or sales representative rural power) have received the above patient education materials/instructions and have verbalized understanding: Patient Signature _ Date/Time Patient House Player Signature (if needed) Date/Time Clinician/Hospital House Player Signature (if needed) Date/Time documented in this encounter Plan of Treatment Not on file documented as of this encounter Visit Diagnoses Not on filedocumented in this encounter
--- OUTSIDE RECORDS SUMMARY | 2024-12-18 09:18 | XMS_ITS | Encounter Summary ---
Author Organization [employer] ([place], [place], [place], [place], [place]) Address [address] [place] [address] Care Team Providers Care Gunsmith Apprentice Name Role Phone Unavailable Primary Care Provider Unavailabl e Encounter Details Date Type Department Care Team (Late st Contact Info) Description 03/29/2018 Transcribed Document [facility] Family Medicine [address] [place] [address] ProviderZion MD [address], [place] [id number] Social History Tobacco Use Types Packs/Day Years Used Date Smoking Tobacco: Never Assessed Comments Unknown Sex and Gender Information Value Date Recorded Sex Assigned at Not on file Legal Sex Female 4:39 PM CDT Gender Identity Not on file Sexual Orientation Not on file documented as of this encounter Miscellaneous Notes * Cerner Conversion Note - Historical ProviderMD - 03/29/2018 1:20 PM ENDING MACHINE OPERATOR Care Management Assessment/Plan Entered On: 03/29/2018 13:22 EST Performed On: 03/29/2018 13:20 EST by Odalys Bush Rn-Propeller Layout WorkerChemical Preparer Note Anticipated Discharge Date : 03/30/2018 14:00 EST Care Management Note : Confirmed with [facility] that patient can transfer today [phone]; [phone]. Spoke with patient's daughter Jazmine [phone] who plans to transport. Dr. Hamilton advised and [facility]ge pharmacy aware. Patient should be ready to transport by 15:00. Care Management Note Report : Ninoska Cuellar, Rn-Propeller Layout Worker Ed - 03/28/18 20:23:22 CM faxed orders to [facility] for IV abx f [phone] per orders. CM will need to call [facility] to notify them of final d/c plan per MD orders p [phone]. CM to follow for ongoing d/c planning/needs. Ninoska Cuellar, Rn-Propeller Layout Worker Ed - 03/28/18 18:12:15 CM recieved call from Gama at [facility] stating they can take pt at their facility, but not until Saturday, as they now have an agreement with [facility]. CM then spoke with Edie from [facility] and she again confirms they can accept pt at their facility tomorrow. CM updated pt and now pt is agreeable to go to [facility]. She also gave CM permission to speak with Jazmine joshi by phone p [phone]. CM spoke with Jazmine and she is agreeable with plan for [facility], stating its much closer to them, approx 30 min. Pt tells CM that her PCP, Dr. Davis had told her that she was not able to do IV abx from home. Discharge plan will be to go to [facility] in the am. CM updated Dr. Stauffer and he reports he will notify [facility] for tomorrow. CM will cont to follow for ongoing d/c planning/needs. Ninoska Cuellar, Rn-Propeller Layout Worker Ed - 03/28/18 16:01:02 [facility] Clem states home cost for Rocephin is $3.70/wk. She states they may be able to contract with SNF to provide abx at pt's cost. She asked CM to have SNF call Paulo at their office to see about arranging. CM called MADELYN Corona with [facility] and [facility]. Updated BS RNAva. CM will cont to follow. Ninoska Cuellar, Rn-Propeller Layout Worker Ed - 03/28/18 14:57:29 Called [facility] and spoke with Chiquita and updated her on IV abx needs. SHe will check cost and call CM back to see if bed offer is still on the table. CM left for Sheri with [facility] to update her, left requesting return phone call. CM updated pt and she appears discouraged that [facility] will not accept her as a pt. She tells CM that she is considering just going home. BLAKE also called Clem with [facility] to argueta abx at home. She states that [facility] may also be able to contract with facility to provide them with abx at their cost. CM faxed info on pt and abx to [facility] f [phone]. CM updated BS RN, Ava. CM will cont to follow. Ninoska Cuellar, Rn-Propeller Layout Worker Ed - 03/28/18 14:21:[address] Robert bradley and he tells CM that pt is ready for discharge from his standpoint and that ID has a plan in place for IV abx. PT does have a PICC in place. Recieved VM from [facility] with [facility] p [phone] stating they are interested in pt. CM went to BS to speak with pt to discuss bed offers. CM presented bed offers and pt tells CM that she really doesn't want to go to another facility. Pt tells CM that she only wants to go to [facility], as she has been there in the past. [facility] had not make bed offer at this time. BLAKE called and spoke with Gama in admissions at [facility] and she tells CM that per her DON, they do not believe they can meet pt's needs at this time. CM pressed for more information and Gama told CM that she would have DON call her. -CM then spoke with MADELYN Corona at [facility] and she states that pt appears too sick at this time to come to their facility. BLAKE provided her with verbal updates, as well as faxed updates f [phone]. She states they will reevaluate now, knowing [...] pt at this time due to the $4063-8114 IV rocephin cost through 05/04/[address] Diaz orders. Cm to follow for ongoing d/c planning/needs. Stew Porras, REGULO - 03/27/18 16:25:12 edie from [place] ([phone] ex [phone]) called to make bed offer. bed offers will be presented to pt 03/28. [facility] [phone] Stew Porras, RN - 03/27/18 15:00:29 spoke to ID who states pt maybe ready for dc as early as 03/28. id and attending PA are recommending SNF. spoke with pt and her dtr, jazmine and informed them of suggestion from drs to dc to snf for iv abx. pt and dtr in agreement and referrlas made via [facility] [place] the following [place].... [place]. Stew Porras, REGULO - 03/27/18 10:34:34 RRS-43 + for BROCK CT consulted and per ID, infection must clear prior to any ant surgical intervention Currnelty on rocephin iv w/bld cx pending Documentation Status Complete : Yes Odalys Bush, Rn-Propeller Layout Worker - 03/29/2018 13:20 EST Electronically signed by Jorge Alberto [facility] Conversion Ironing Machine Operator Cerner at 05/29/2022 8:48 PM CDT documented in this encounter Plan of Treatment Not on file documented as of this encounter Visit Diagnoses Not on filedocumented in this encounter
--- OUTSIDE RECORDS SUMMARY | 2024-12-18 09:18 | XMS_ITS | Encounter Summary ---
Author Organization [employer] ([place], [place], [place], [place], [place]) Address [address] [place] [address] Care Team Providers Care Senior Quality Technician Name Role Phone Unavailable Primary Care Provider Unavailabl e Encounter Details Date Type Department Care Team (Late st Contact Info) Description 03/29/2018 Transcribed Document [facility] [place] [address] ProviderZion MD [address] [place] [id number] Social History Tobacco Use Types Packs/Day Years Used Date Smoking Tobacco: Never Assessed Comments Unknown Sex and Gender Information Value Date Recorded Sex Assigned at Not on file Legal Sex Female 4:39 PM CDT Gender Identity Not on file Sexual Orientation Not on file documented as of this encounter Miscellaneous Notes * Cerner Conversion Note - Zion ProviderMD - 03/29/2018 1:[address] COMMISSIONER Patient: ETHAN LOREDO Age: 57 years Sex: [...] Rocephin: 2 Gram, 100 mL/Hr, IV Piggyback, [id number] Tylenol: 650 mg, Oral, Q4H, PRN: Other [...] 0 Refill(s) Rocephin: 2 Gram, IV Piggyback, [id number], 0 Refill(s) carvedilol 3.125 mg oral tablet: [...] At Bedtime Rocephin 2 Gram, IV Piggyback, [id number] , Medications (25) Active Scheduled: (13) aspirin EC 81 mg tab 81 mg 1 Tab, Oral, Daily carvedilol 3.125 mg tab 3.125 mg 1 Tab, Oral, Daily cefTRIAXone 2 Gram, IV Piggyback, [id number] citalopram 20 mg tab 20 mg 1 [...] - Coronary artery disease / SNOMED CT 5543741259 / Confirmed Cardiomyopathy / SNOMED CT 238550213 / Confirmed HLD - Hyperlipidemia / SNOMED CT 615168473 / Confirmed HTN - Hypertension / SNOMED CT 0333456496 / Confirmed Resolved: COPD - Chronic obstructive pulmonary disease / SNOMED CT 426342725, Active Problems (14) Anxiety Atrial flutter Bladder cancer CAD - Coronary artery disease Cardiomyopathy COPD (chronic obstructive pulmonary disease) Depression Diabetes HLD - Hyperlipidemia HTN - Hypertension Hyperlipidemia Hypertension Pancreatitis Tobacco abuse Objective Vitals Signs (last 24 hrs) Last Charted Minimum Maximum Temp 97.5 (MAR 16 10:45) 97.5 (B 16 10:45) 97.4 (MAR 15 16:15) Mon HR 72 (MAR 16 10:45) 69 (MAR 16 04:00) 81 (MAR 16 00:00) Resp Rate 16 (MAR 16 10:45) 16 (MAR 15 16:15) 16 (MAR 28 16:15) SBP 100 (MAR 16 10:45) 99 (MAR 16 00:00) 107 (MAR 15 16:15) DBP 70 (MAR 16 10:45) 61 (B 16 00:00) 78 (B 15 18:35) MAP 83 (MAR 16 10:45) 74 (B 16 00:00) 91 (MAR 15 18:35) SpO2 96 (MAR 16 10:45) L 93 (MAR 16 04:00) 97 (B 15 18:35) TELE: A BIV paced EKG: [...] 03/29/2018 06:25 Blood Urea Nitrogen 53 mg/dL RI 03/29/2018 06:25 Glucose Level 97 mg/dL 03/29/2018 06:25 Calcium Level 9.4 mg/dL 03/29/2018 06:25 Impression and Plan EP status ok. Inc bun/cr- dc lisinopril. On No diuretics documented in this encounter Plan of Treatment Not on file documented as of this encounter Visit Diagnoses Not on filedocumented in this encounter
[2024-12-18 09:23] LABS: Hematocrit 26.6 % (37.0-47.0); Hemoglobin 7.9 g/dL (12.2-16.2); Immature Granulocytes % 0.2 %; Mean Corpuscular HGB Conc 29.7 g/dL (31.8-35.4); Mean Corpuscular Hemoglobin 26.8 pg (27.0-31.2); Mean Corpuscular Volume 90.2 fl (81-99); Nucleated Red Blood Cells % 0 %; Platelet Count 329 K/mm3 (142-424); Red Blood Count 2.95 M/mm3 (4.20-5.40); Red Cell Distribution Width-SD 64.9 fL; White Blood Count 8.3 K/mm3 (4.8-10.8)
[2024-12-18 09:48] LABS: Alanine Aminotransferase 26 U/L (12-78); Albumin Level 3.5 g/dl (3.5-5.0); Albumin/Globulin Ratio 1.0 (1.1-1.8); Alkaline Phosphatase 180 U/L (38-126); Anion Gap 14.5 mEq/L (5-15); Aspartate Amino Transferase 33 U/L (14-36); Bilirubin,Total 0.7 mg/dl (0.2-1.3); Blood Urea Nitrogen 77 mg/dl (7-17); Calcium 8.4 mg/dl (8.4-10.2); Carbon Dioxide 25 mmol/L (22.0-30.0); Chloride 99 mmol/L (98-107); Creatinine,Serum 3.50 mg/dl (0.52-1.04); Estimated Glomerular Filt Rate 13 ml/min (>60); GFR (African American) 16 ML/MIN (>60); Globulin 3.5 g/dL (1.3-3.2); Glucose 66 mg/dl (74-100); Potassium 5.5 mmoL/L (3.5-5.1); Sodium 133 mmol/L (136-145); Total Protein,Serum 7.0 g/dl (6.3-8.2)
== END 2024-12-18 23:59 | disposition home or self-care (01) ==
PROVIDERS: PCP Family Medicine; Visit Provider Family Medicine
DX: K74.60 Unspecified cirrhosis of liver (principal); D64.9 Anemia, unspecified
CPT/HCPCS: 36415; 80053; 85025

== ENCOUNTER 2024-12-21 08:40 | Outpatient (CLI) | payer MEDICARE, SELFPAY ==
--- OUTSIDE RECORDS SUMMARY | 2024-11-13 10:20 | XMS_ITS | Encounter Summary ---
Author Organization Healthcare Address [address] [place] [place] [address] Care Team Providers Care [employer]ision Aircraft Systems Assembler Name Role Phone Cosme Davis MD Primary Care Provider [phone] Reason for Referral * Consultation (Routine) - Authorized Specialty Diagnoses / Procedures Referred By Yogi tapia Referred To Contact Physical Therapy Diagnoses Pain in pelvis Smiley Negrete PA [address] [facility] [address] [place] [address] Phone: tel: fax: Referral ID Status Reason Start Date Expiration Date Visits Requested Visits Authorized [id number] Authorized Consult and Treat 11/13/2024 05/15/2026 1 1 Reason for Visit * Reason Comments Follow-up Encounter Details Date Type Department Care Team (Late st Contact Info) Description 11/13/2024 11:20 AM EDT Office Visit [facility] [address], 1st Floor [address] [place] [address] Paulo Darnell MD [address] [facility] [address] [place] [address] Pain in pelvis (Primary Dx) [...] and Family Not on file 10/13/2024 Attends Yazdanism Services Not on file 10/13 Active Member [...] any time in the past 12 m [facility], were you homeless or living in a senior care (including now)? No 10/13/2024 [facility] Utilities Answer Date Recorded In the past 12 months has [employer], gas, oil, or water [employer] threatened to shut off services in your [...] by mouth daily., Disp: , Rfl: HYDROcodone-acetaminophen ([place]) 5-325 MG tablet, , Disp: , Rfl: [...] Info) Description 01/21/2025 1:30 PM EST Appointment [facility] Lab [address] Floor [address], [address] [place] [address] 01/21/2025 2:00 PM EST Appointment [facility] Lab [address] Floor [address], [address] [place] [address] 01/21/2025 2:40 PM EST Office Visit [facility] [address], [address] [place] [address] Jose Rosario MD [address] [place] [address] Scheduled Referrals Name Type Priority [...] documented as of this encounter Care Teams [employer] Aircraft Systems Assembler Relationship Specialty Start Date End Date Cosme Davis MD [address] [place] [address] PCP - General 06/24/20 documented as of this encounter
--- OUTSIDE RECORDS SUMMARY | 2024-11-13 10:23 | XMS_ITS | Encounter Summary ---
Author Organization Healthcare Address [address] [place] [address] Care Team Providers Care Divorce Lawyer Name Role Phone Cosme Davis MD Primary Care Provider [phone] Encounter Details Date Type Department Care Team (Latest Contact Info) Description 11/13/2024 11:23 AM EDT - 11/13/2024 11:59 PM EDT Hospital Encounter [place] [facility] [address], 1st [place] [address] Pain in pelvis Discharge Disposition: Home or [...] and Family Not on file 10/13/2024 Attends [employer] Services Not on file 10/13 Active Member [...] time in the past 12 m [facility], were you homeless or living in a retirement (including now)? No 10/13/2024 [facility] Utilities Answer Date Recorded In the past 12 months has th e [employer], gas, oil, or water company threatened to [...] tablet by mouth daily. 08/21/2018 HYDROcodone-acet aminophen ([place]) 5-325 MG tablet 11/02/2024 insulin glargine (Lantus) [...] Info) Description 01/21/2025 1:30 PM EST Appointment [facility] [address] Floor [address], [address] [place] [address] 01/21/2025 2:00 PM EST Appointment [facility] [address] Floor [address], [address] [place] [address] 01/21/2025 2:40 PM EST Office Visit [facility] [address], [address] [place] [address] Jose Rosario MD [address] [facility] [address] [place] [address] documented as of this encounter Procedures Procedure [...] documented as of this encounter Care Teams Divorce Lawyer Relationship Specialty Start Date End Date Cosme Davis MD [address] [place] [address] PCP - General 06/24/20 documented as of this encounter
[2024-12-21 08:50] LABS: Hematocrit 30.7 % (37.0-47.0); Hemoglobin 8.9 g/dL (12.2-16.2); Immature Granulocytes % 0.5 %; Mean Corpuscular HGB Conc 29.0 g/dL (31.8-35.4); Mean Corpuscular Hemoglobin 26.1 pg (27.0-31.2); Mean Corpuscular Volume 90.0 fl (81-99); Nucleated Red Blood Cells % 0 %; Platelet Count 343 K/mm3 (142-424); Red Blood Count 3.41 M/mm3 (4.20-5.40); Red Cell Distribution Width-SD 63.7 fL; White Blood Count 4.2 K/mm3 (4.8-10.8)
--- OUTSIDE RECORDS SUMMARY | 2024-12-21 08:56 | XMS_ITS | Clinical Summary ---
Author Organization [facility] Address [facility] [place] [address] Care Team Providers Care Yard Demurrage Clerk Name Role Phone Pcp, No Primary Care Provider [phone] Source Comments This information has been disclosed [...] therelease of HIV test results or diagnoses. [id number] Allergies No known active allergies Medications [...] drink = 0.6 oz pur e alcohol) [facility] Utilities Answer Date Recorded In the past 12 months has e [employer], gas, oil, or water [employer] threatened to shut off services in your [...] [facility] you [facility] or living in a jail (including now)? No 03/05/2024 Comments Unknown Sex [...] Monitoring (MyChart) 09/03/2024 03/06/2024 Immunization: COVID-19 ( - season) 2024 Immunization: Influenza (MyC banuelos) (#1) [...] ORDERABLES Fin al Result Performing Organization Address [facility] Co de Phone Number [facility] [address] [facility]. [address] * Protein / creatinine ratio, urine (03/07/2024 11:26 PM EST) Creatinine, Urine 28.30 mg/dL 03/07/2024 11:52 PM EST [facility] Comment:Reference range not established for this test. Total Protein, Ur 52 mg/dL 03/07/2024 11:52 PM EST [facility] Comment:Reference range not established for this test. Prot/Creat Ratio, Ur 1.84 ratio 03/07/2024 11:52 PM EST [facility] Urine 03/07/2024 11:2 6 PM EST 03/07/2024 11:36 PM EST Tate Castro MD URINE ORDERABLES Final R esult Performing Organization Address [facility] Co de Phone Number [facility] [address] [facility]. [address] * (ABNORMAL) Thyroid Function [place] (03/06/2024 1:44 PM EST) TSH 6.15(H) 0.45 - 4.12 uIU/mL 03/06/2024 2:33 PM EST [facility] Serum 03/06/2024 1:44 PM EST 03/06/2024 1:50 PM EST us Angelo Chaudhry CNP LAB BLOOD ORDERABLES Final Result Performing Organization Address [facility]/State/[facility] Co de Phone Number [facility] [address] [facility]. [address] * (ABNORMAL) Hemoglobin A1c (03/06/2024 5:42 AM EST) Hemoglobin A1C 6.4(H) 4.0 - 5.6 % 03/06/2024 1:13 PM EST [facility] Comment: Hemoglobin A1c Interpretation Guidelines: [...] ORDERABLES Bindu l Result Performing Organization Address City/[facility] Co de Phone Number [facility] [address] [facility]. [address] from Last 3 Months or Most Recently Relevant to Health Maintenance Insurance [employer] Advance Directives For more information, please contact: [phone] Documents on File Type Date Recorded Patient Wire Spiral Binder Expl anation Durable Power of Profiling Machine Setup Operator - scan 03/11/2024 * Full Code (Latest Code Status on File) Date Activated Date Inactivated Comments 03/05/2024 10:20 PM 03/09/2024 11:04 PM Care Teams Yard Demurrage Clerk Relationship Specialty Start Date End Date Pcp, [address] [place], [place] [id number] PCP - General 03/05/24
--- OUTSIDE RECORDS SUMMARY | 2024-12-21 08:56 | XMS_ITS | Encounter Summary ---
Author Organization [employer] ([place], [place], [place], [place], [place]) Address [address] [place] [address] Care Team Providers Care Eradicator Name Role Phone Unavailable Primary Care Provider Unavailabl e Encounter Details Date Type Department Care Team (Late st Contact Info) Description 03/28/2018 Transcribed Document [facility] [address] [place] [address] ProviderZion MD [address] [place], [place] [phone] Social History Tobacco Use Types Packs/Day Years Used Date Smoking Tobacco: Never Assessed Comments Unknown Sex and Gender Information Value Date Recorded Sex Assigned at Not on file Legal Sex Female 4:39 PM CDT Gender Identity Not on file Sexual Orientation Not on file documented as of this encounter Miscellaneous Notes * Cerner Conversion Note - Zion ProviderMD - 03/28/2018 6:04 PM SPRING TIER Patient: ETHAN LOREDO Age: 57 years Sex: [...] Rocephin: 2 Gram, 100 mL/Hr, IV Piggyback, [id number] Tylenol: 650 mg, Oral, Q4H, PRN: Other [...] Oral, Daily cefTRIAXone 2 Gram, IV Piggyback, [id number] citalopram 20 mg tab 20 mg 1 [...]
--- OUTSIDE RECORDS SUMMARY | 2024-12-21 08:56 | XMS_ITS | Encounter Summary ---
Author Organization [employer] ([place], [place], [place], [place], [place]) Address [address] [place] [address] Care Team Providers Care Pattern Grader Name Role Phone Unavailable Primary Care Provider Unavailabl e Encounter Details Date Type Department Care Team (Late st Contact Info) Description 03/28/2018 Transcribed Document [facility] [address] [place] [address] ProviderZion MD [address] [place] [address] Social History Tobacco Use Types [...] - Historical ProviderMD - 03/28/2018 5:00 PM MILL TENDER SECOND OPERATOR Chart Check - Review Order Profile Entered On: 03/28/2018 16:43 EST Performed On: 03/28/2018 17:00 EST by Ava Schmitt RN Chart Check Chart Reviewed Date and Time : 03/28/2018 16:43 EST Ava Schmitt RN - 03/28/2018 16:43 EST Electronically signed by Jorge Alberto [facility] Conversion Tablet Repair Cerner at 05/29/2022 8:40 PM CDT documented in this encounter Plan of Treatment Not on file documented as of this encounter Visit Diagnoses Not on filedocumented in this encounter
--- OUTSIDE RECORDS SUMMARY | 2024-12-21 08:56 | XMS_ITS | Encounter Summary ---
Author Organization [employer] ([place], [place], [place], [place], [place]) Address [address] [place] [address] Care Team Providers Care Medical Representative Name Role Phone Unavailable Primary Care Provider Unavailabl e Encounter Details Date Type Department Care Team (Late st Contact Info) Description 03/28/2018 Transcribed Document [facility] [place] Medicine [address] [place] [address] ProviderZion MD [address] [place], [place] [id number] Social History Tobacco Use Types Packs/Day Years Used Date Smoking Tobacco: Never Assessed Comments Unknown Sex and Gender Information Value Date Recorded Sex Assigned at Not on file Legal Sex Female 4:39 PM CDT Gender Identity Not on file Sexual Orientation Not on file documented as of this encounter Miscellaneous Notes * Cerner Conversion Note - Historical ProviderMD - 03/28/2018 3:56 PM BRICKLAYER SEWER Care Management Assessment/Plan Entered On: 03/28/2018 16:01 EST Performed On: 03/28/2018 15:56 EST by Ninoska Cuellar Rn-Centerless Grinder Set Up Operator Ed Care Management Note Anticipated Discharge Date : 04/03/2018 14:00 EST Care Management Note : Rubi's Mariahjesus states home cost for Luis Daniel is $3.70/wk. She states they may be able to contract with SNF to provide abx at pt's cost. She asked CM to have SNF call Pal[place] at their office to see about arranging. CM called MADELYN Corona with [facility] and she will call Rubi to see if this can be arranged. Updated BS RNAva. CM will cont to follow. Care Management Note Report : Ninoska Cuellar Rn-Centerless Grinder Set Up Operator Ed - 03/28/18 14:57:29 Called [facility] and spoke with Chiquita and updated her on IV abx needs. SHe will check cost and call CM back to see if bed offer is still on the table. CM left for [facility] with [facility] to update her, left requesting return phone call. CM updated pt and she appears discouraged that [place] will not accept her as a pt. She tells CM that she is considering just going home. CM also called Clem with [facility] to argueta abx at home. She states that [facility] may also be able to contract with facility to provide them with abx at their cost. CM faxed info on pt and abx to [facility] f [phone]. CM updated BS RN, Ava. CM will cont to follow. Ninoska Cuellar, Rn-Centerless Grinder Set Up Operator Ed - 03/28/18 14:21:[address] Jones this and he tells CM that pt is ready for discharge from his standpoint and that ID has a plan in place for IV abx. PT does have a PICC in place. Recieved VM from [facility] with [facility] p [phone] stating they are interested in pt. CM went to BS to speak with pt to discuss bed offers. CM presented bed offers and pt tells CM that she really doesn't want to go to another facility. Pt tells CM that she only wants to go to [facility], as she has been there in the past. [place] had not make bed offer at this time. BLAKE called and spoke with Gama in admissions at [facility] and she tells CM that per her DON, they do not believe they can meet pt's needs at this time. BLAKE pressed for more information and Gama told CM that she would have DON call her. -BLAKE then spoke with MADELYN Corona at [facility] and she states that pt appears too sick at this time to come to their facility. BLAKE provided her with verbal updates, as well as faxed updates f [phone]. She states they will reevaluate now, knowing abx needs. She asked for bld cx results and CM called microbiology dept and was told that bld cx x2 from 03/23 were still negative, but would not be complete until this evening. CM informed facility of this information. CM then recieved callback from [place] with admissions who states after rereview, they will not be able to take pt at this time due to the $6604-2905 IV rocephin cost through 05/04/[address] Diaz orders. Cm to follow for ongoing d/c planning/needs. Stew Porras, RN - 03/27/18 16:25:12 blayne from [facility] ([phone]) called to make bed offer. bed offers will be presented to pt 03/28. dtr will provide [place] [phone] Stew Porras, REGULO - 03/27/18 15:00:29 spoke to ID who states pt maybe ready for dc as early as 03/28. id and attending PA are recommending SNF. spoke with pt and her dtr, jazmnie and informed them of suggestion from drs to dc to snf for iv abx. pt and dtr in agreement and referrlas made via [facility] to the following counties.... [place]. Stew Porras, REGULO - 03/27/18 10:34:34 RRS-43 + for BROCK CT consulted and per ID, infection must clear prior to any ant surgical intervention Currnelty on rocephin iv w/bld cx pending Documentation Status Complete : Yes Ninoska Cuellar, Rn-Centerless Grinder Set Up Operator Ed - 03/28/2018 15:56 EST documented in this encounter Plan of Treatment Not on file documented as of this encounter Visit Diagnoses Not on filedocumented in this encounter
--- OUTSIDE RECORDS SUMMARY | 2024-12-21 08:56 | XMS_ITS | Encounter Summary ---
Author Organization [employer] ([place], [place], [place], [place], [place]) Address [address] [place] [address] Care Team Providers Care Power Shear Operator Name Role Phone Unavailable Primary Care Provider Unavailabl e Encounter Details Date Type Department Care Team (Late st Contact Info) Description 03/28/2018 Transcribed Document [facility] [place] [address] [place] [address] ProviderZion MD [address] [place] [address] Social History Tobacco Use Types [...] - Historical ProviderMD - 03/28/2018 6:07 PM VETERINARY MILK SPECIALIST Care Management Assessment/Plan Entered On: 03/28/2018 18:12 EST Performed On: 03/28/2018 18:07 EST by Ninoska Cuellar Rn-Chronic Condition Nurse Ed Care Management Note Anticipated Discharge Date : 04/03/2018 14:00 EST Care Management Note : CM recieved call from Gama at [facility] stating they can take pt at their facility, but not until Saturday, as they now have an agreement with [facility]. CM then spoke with Edie from [facility] and she again confirms they can accept pt at their facility tomorrow. CM updated pt and now pt is agreeable to go to [facility]. She also gave CM permission to speak with Jazmine joshi by phone p [phone]. CM spoke with Jazmine and she is agreeable with plan for [facility], stating its much closer to them, approx 30 min. Pt tells CM that her PCP, Dr. Davis had told her that she was not able to do IV abx from home. Discharge plan will be to go to [facility] in the am. BLAKE updated Dr. Stauffer and he reports he will notify [facility] for tomorrow. CM will cont to follow for ongoing d/c planning/needs. Care Management Note Report : Ninoska Cuellar, Rn-Chronic Condition Nurse Ed - 03/28/18 16:01:02 [facility] home cost for [facility] Daniel is $3.70/wk. She states they may be able to contract with SNF to provide abx at pt's cost. She asked CM to have SNF call Paulo at their office to see about arranging. CM called MADELYN Corona with [facility]. Updated [facility]. CM will cont to follow. Ninoska Cuellar, Rn-Chronic Condition Nurse Ed - 03/28/18 14:57:29 Called [facility] and spoke with Chiquita and updated her on IV abx needs. SHe will check cost and call CM back to see if bed offer is still on the table. CM left for [facility] with [facility] to update her, left requesting return phone call. CM updated pt and she appears discouraged that [facility] will not accept her as a pt. She tells CM that she is considering just going home. BLAKE also called Clem with [facility] to argueta abx at home. She states that [facility] may also be able to contract with facility to provide them with abx at their cost. CM faxed info on pt and abx to [facility] f [phone]. CM updated [facility]. CM will cont to follow. Ninoska Cuellar, Rn-Chronic Condition Nurse Ed - 03/28/18 14:21:[address] Jones this and he tells CM that pt is ready for discharge from his standpoint and that ID has a plan in place for IV abx. PT does have a PICC in place. Recieved VM from [facility] with [facility] p [phone] stating they are interested in pt. CM went to BS to speak with pt to discuss bed offers. CM presented bed offers and pt tells CM that she really doesn't want to go to another facility. Pt tells CM that she only wants to go to [facility], as she has been there in the past. [facility] had not make bed offer at this time. CM called and spoke with Gama in admissions at [facility] and she tells CM that per her DON, they do not believe they can meet pt's needs at this time. CM pressed for more information and Gama told CM that she would have DON call her. -CM then spoke with MADELYN Corona at [facility] and she states that pt appears too sick at this time to come to their facility. CM provided her with verbal updates, as well as faxed updates f [phone]. She states they will reevaluate now, knowing [...] pt at this time due to the $7018-0545 IV rocephin cost through 05/04/[address] Diaz orders. Cm to follow for ongoing d/c planning/needs. Stew Porras RN - 03/27/18 16:25:12 edie from [facility] ( ex [phone]) called to make bed offer. bed offers will be presented to pt 03/28. dtr will provide transportationashwheatley [phone] Stew Porras RN - 03/27/18 15:00:29 spoke to ID who states pt maybe ready for dc as early as 03/28. id and attending PA are recommending SNF. spoke with pt and her dtr, jazmine and informed them of suggestion from drs to dc to snf for iv abx. pt and dtr in agreement and referrlas made via [facility] to the following counties.... [place]. Stew Porras RN - 03/27/18 10:34:34 RRS-43 + for BROCK CT consulted and per ID, infection must clear prior to any ant surgical intervention Currnelty on rocephin iv w/bld cx pending Documentation Status Complete : Yes Ninoska Cuellar, Rn-Chronic Condition Nurse Ed - 03/28/2018 18:07 EST Electronically signed by Jorge Alberto, [facility] Conversion Street Roller Engineer Cerner at 05/29/2022 8:35 PM CDT documented in this encounter Plan of Treatment Not on file documented as of this encounter Visit Diagnoses Not on filedocumented in this encounter
--- OUTSIDE RECORDS SUMMARY | 2024-12-21 08:56 | XMS_ITS | Encounter Summary ---
Author Organization [employer] ([place], [place], [place], [place], [place]) Address [address] [place] [address] Care Team Providers Care Bricklayer Tender Name Role Phone Unavailable Primary Care Provider Unavailabl e Encounter Details Date Type Department Care Team (Late st Contact Info) Description 03/28/2018 Transcribed Document [facility] [place] Family Medicine [facility] [place] [address] ProviderZion MD [address] [place] [id number] Social History Tobacco Use Types Packs/Day Years Used Date Smoking Tobacco: Never Assessed Comments Unknown Sex and Gender Information Value Date Recorded Sex Assigned at Not on file Legal Sex Female 4:39 PM CDT Gender Identity Not on file Sexual Orientation Not on file documented as of this encounter Miscellaneous Notes * Cerner Conversion Note - Zion ProviderMD - 03/28/2018 12:56 PM CREDIT REPORT CHECKER Patient: ETHAN CRONIN Age: 57 years Sex: Female : 1960 Associated Diagnoses: None Author: CARROLL HIGH MD-INF Basic Information CC: Sepsis bacteremia 03/19/18 4/4 bottles for Group b strep ([facility]), mitral prosthetic valve endocarditis History of Present Illness 57-year-old white female with history of bladder cancer, atrial flutter, pacemaker placement 2016, hypertension, DM2, COPD, pancreatitis, who recently had blood cultures obtained at [facility] on 03/19/18 for fever which were positive in 4 out of 4 bottles for group B Streptococcus. Patient was to start IV antibiotics but was found to have bradycardia and was admitted to [facility] on 03/23/17. I was consulted on 03/25/17. The patient had been started on vancomycin and Rocephin. Urine culture obtained at [facility] was positive for multiple bacteria consistent [...] cefTRIAXone (Rocephin) - 2 Gram, IV Piggyback, [id number], infuse over 30 Minute(s), Routine Anticoagulant heparin [...] Normal strength, No tenderness. Integumentary: Warm, Dry, [employer], No pallor, No rash, Left chest wall [...] 23) Troponin <0.015 (MAR 23) , ACC: [id number] ORDER: Culture Blood DATE: 03/23/2018 17:49 SOURCE: Blood SITE: Reports Pre 03/27/2018 23:01 No growth at 4 days. Pre 03/26/2018 23:01 No growth at 3 days. Pre 03/25/2018 23:01 No growth at 2 days. Pre 03/24/2018 23:02 No growth at 1 day. Pre 03/24/2018 16:03 Culture less than 24 Hrs old == ACC: [id number] ORDER: Culture Blood DATE: 03/23/2018 17:49 SOURCE: [...] of 4 blood culture bottles positive at [facility] (spoke to Maurice Spencer, at [facility]). BROCK consistent with mitral valve endocarditis, [...] Dr. Perez's service, cardiology, and Dr. Alan.. critical care unit manager: Please arrange for outpatient IV antibiotics with Rocephin 2 g IV every 12 hours until 05/04/18. Follow CBC, CMP, CRP weekly while on IV antibiotics. Fax orders to [phone], and call [phone] with final arrangements. Arrange for follow-up with me in 2 weeks post discharge. documented in this encounter Plan of Treatment Not on file documented as of this encounter Visit Diagnoses Not on filedocumented in this encounter
--- OUTSIDE RECORDS SUMMARY | 2024-12-21 08:56 | XMS_ITS | Encounter Summary ---
Author Organization [employer] ([place], [place], [place], [place], [place]) Address [address] [place] [address] Care Team Providers Care Rn Neonatal Name Role Phone Unavailable Primary Care Provider Unavailabl e Encounter Details Date Type Department Care Team (Late st Contact Info) Description 03/28/2018 Transcribed Document [facility] [place] [address] [place] [address] ProviderZion MD [address] [place] [address] Social History Tobacco Use Types [...] - Historical ProviderMD - 03/28/2018 2:01 PM DENTAL ASSISTANT INSTRUCTOR Care Management Assessment/Plan Entered On: 03/28/2018 14:21 EST Performed On: 03/28/2018 14:01 EST by Ninoska Cuellar Rn-Knife Finisher Ed Care Management Note Anticipated Discharge Date : 04/03/2018 14:00 EST Care Management Note : CM spoke with Dr. Jones this am and he tells CM that pt is ready for discharge from his standpoint and that ID has a plan in place for IV abx. PT does have a PICC in place. Recieved VM from [facility] with [facility] p [phone] stating they are interested in pt. CM went to to speak with pt to discuss bed offers. CM presented bed offers and pt tells CM that she really doesn't want to go to another facility. Pt tells CM that she only wants to go to [facility], as she has been there in the past. [facility] had not make bed offer at this time. BLAKE called and spoke with Gama in admissions at [facility] and she tells CM that per her DON, they do not believe they can meet pt's needs at this time. BLAKE pressed for more information and Gama told CM that she would have DON call her. -CM then spoke with MADELYN Corona at [facility] and she states that pt appears too sick at this time to come to their facility. CM provided her with verbal updates, as well as faxed updates f [phone]. She states they will reevaluate now, knowing [...] pt at this time due to the $9205-2295 IV rocephin cost through 05/04/[address] Diaz orders. Cm to follow for ongoing d/c planning/needs. Care Management Note Report : Stew Porras, REGULO - 03/27/18 16:25:12 blayne from [facility] ( [address]) called to make bed offer. bed offers will be presented to pt 03/28. dtr will provide transportationashfieldon [phone] Stew Porras, REGULO - 03/27/18 15:00:29 spoke to ID who states pt maybe ready for dc as early as 03/28. id and attending PA are recommending SNF. spoke with pt and her dtr, jazmine and informed them of suggestion from drs to dc to snf for iv abx. pt and dtr in agreement and referrlas made via [facility] to the following counties.... [place]. Stew Porras, REGULO - 03/27/18 10:34:34 RRS-43 + for BROCK CT consulted and per ID, infection must clear prior to any ant surgical intervention Currnelty on rocephin iv w/bld cx pending Documentation Status Complete : Yes Ninoska Cuellar, Rn-Knife Finisher Ed - 03/28/2018 14:01 EST Electronically signed by [facility], [facility] Conversion Auto Transmission Specialist Cerner at 05/29/2022 8:46 PM CDT documented in this encounter Plan of Treatment Not on file documented as of this encounter Visit Diagnoses Not on filedocumented in this encounter
--- OUTSIDE RECORDS SUMMARY | 2024-12-21 08:56 | XMS_ITS | Encounter Summary ---
Author Organization [employer] ([place], [place], [place], [place], [place]) Address [address] [place] [address] Care Team Providers Care At Risk Specialist Name Role Phone Unavailable Primary Care Provider Unavailabl e Encounter Details Date Type Department Care Team (Late st Contact Info) Description 03/28/2018 Transcribed Document [facility] [place] Family Medicine [facility] [place] [address] ProviderZion MD [address] [place] [id number] Social History Tobacco Use Types Packs/Day Years Used Date Smoking Tobacco: Never Assessed Comments Unknown Sex and Gender Information Value Date Recorded Sex Assigned at Not on file Legal Sex Female 4:39 PM CDT Gender Identity Not on file Sexual Orientation Not on file documented as of this encounter Miscellaneous Notes * Cerner Conversion Note - Zion ProviderMD - 03/28/2018 7:46 AM THIRD SHIFT LIEUTENANT Patient: ETHAN LOREDO Age: 57 years Sex: [...] Rocephin: 2 Gram, 100 mL/Hr, IV Piggyback, [id number] Tylenol: 650 mg, Oral, Q4H, PRN: Other [...] of motion, Normal strength. Integumentary: Warm, Dry, [place]. Neurologic: Alert, Oriented. Psychiatric: Cooperative, Appropriate mood [...] in 4-[address] Marcano at [facility]. 03/27/18 Options discussed with pt-Definitive Rx would require redo-MV sugery/device explant-reimplant. Surgical risk is high given severe carotid dx. Conservative initial Rx w/ repeat BROCK in 4-6 is reasonable option. CTS to see/EP following. Continue current CV meds. Add Plavix if no surgery. Electronically signed by Jorge Alberto, [facility] Conversion Automated Manufacturing Instructor Cerner at 05/29/2022 8:35 PM CDT documented in this encounter Plan of Treatment Not on file documented as of this encounter Visit Diagnoses Not on filedocumented in this encounter
--- OUTSIDE RECORDS SUMMARY | 2024-12-21 08:56 | XMS_ITS | Encounter Summary ---
Author Organization [employer] ([place], [place], [place], [place], [place]) Address [address] [place] [address] Care Team Providers Care Freight Inspector Name Role Phone Unavailable Primary Care Provider Unavailabl e Encounter Details Date Type Department Care Team (Late st Contact Info) Description 03/29/2018 Transcribed Document [facility] [place] Family Medicine [address] [place] [address] ProviderZion MD [address] [place], [place] [id number] Social History Tobacco Use Types Packs/Day Years Used Date Smoking Tobacco: Never Assessed Comments Unknown Sex and Gender Information Value Date Recorded Sex Assigned at Not on file Legal Sex Female 4:39 PM CDT Gender Identity Not on file Sexual Orientation Not on file documented as of this encounter Miscellaneous Notes * Cerner Conversion Note - Historical ProviderMD - 03/29/2018 2:00 AM ACID POLYMERIZATION OPERATOR Supply Specialist Details Entered On: 03/29/2018 6:43 EST Performed [...]
--- OUTSIDE RECORDS SUMMARY | 2024-12-21 08:56 | XMS_ITS | Encounter Summary ---
Author Organization [employer] ([place], [place], [place], [place], [place]) Address [address] [place] [address] Care Team Providers Care Jewelry Sales Associate Name Role Phone Unavailable Primary Care Provider Unavailabl e Encounter Details Date Type Department Care Team (Late st Contact Info) Description 03/29/2018 Transcribed Document [facility] [place] Family Medicine [address] [place] [address] ProviderZion MD [address] [place], [place] [phone] Social History Tobacco Use Types Packs/Day Years Used Date Smoking Tobacco: Never Assessed Comments Unknown Sex and Gender Information Value Date Recorded Sex Assigned at Not on file Legal Sex Female 4:39 PM CDT Gender Identity Not on file Sexual Orientation Not on file documented as of this encounter Miscellaneous Notes * Cerner Conversion Note - Historical ProviderMD - 03/29/2018 1:22 PM MECHANIST Discharge Instructions Entered On: 03/29/2018 13:23 EST Performed On: 03/29/2018 13:22 EST by Odalys Bush Rn-Surg Physician Asst DC Instructions HWD Discharge Summary Sent to : Joshua [phone] Special Instructions : Report: Joshua [phone] Odalys Bush Rn-Surg Physician Asst - 03/29/2018 13:22 EST Electronically signed by Jorge Alberto [facility] Conversion Linux Kernel Engineer Cerner at 05/29/2022 8:39 PM CDT documented in this encounter Plan of Treatment Not on file documented as of this encounter Visit Diagnoses Not on filedocumented in this encounter
--- OUTSIDE RECORDS SUMMARY | 2024-12-21 08:56 | XMS_ITS | Encounter Summary ---
Author Organization [employer] ([place], [place], [place], [place], [place]) Address [address] [place] [address] Care Team Providers Care Patient Services Manager Name Role Phone Unavailable Primary Care Provider Unavailabl e Encounter Details Date Type Department Care Team (Late st Contact Info) Description 03/29/2018 Transcribed Document [facility] [place] Family Medicine [address] [place] [address] ProviderZion MD [address] [place] [address] Social History Tobacco Use Types [...] - Historical ProviderMD - 03/29/2018 5:00 AM DONOR RELATIONS OFFICER Chart Check - Review Order Profile Entered On: 03/29/2018 6:43 EST Performed On: 03/29/2018 5:00 EST by Tiffany Guadalupe RN Chart Check Chart Reviewed Date and Time : 03/29/2018 6:43 EST Powerplans Initiated/Discontinued as Appropriate : Yes All Active Orders Reviewed : Yes Tiffany Guadalupe RN - 03/29/2018 6:43 EST Electronically signed by Jorge Alberto [facility] Conversion Insurance Policy Clerk Cerner at 05/29/2022 8:36 PM CDT documented in this encounter Plan of Treatment Not on file documented as of this encounter Visit Diagnoses Not on filedocumented in this encounter
--- OUTSIDE RECORDS SUMMARY | 2024-12-21 08:56 | XMS_ITS | Encounter Summary ---
Author Organization [email or web address] ([place], [place], [place], [place], [place]) Address [address] [place] [address] Care Team Providers Care Yeast Fermentation Attendant Name Role Phone Unavailable Primary Care Provider Unavailabl e Encounter Details Date Type Department Care Team (Late st Contact Info) Description 03/29/2018 Transcribed Document EM Family Medicine [address] [place] [address] ProviderZion MD [address] [place] [address] Social History Tobacco Use Types [...] - Zion ProviderMD - 03/29/2018 3:30 PM PUBLIC RELATIONS SUPERVISOR Care Management Assessment/Plan Entered On: 03/29/2018 15:31 EST Performed On: 03/29/2018 15:30 EST by Odalys Bush Rn-Restrike Hammer OperatorMaster Plumber Note Anticipated Discharge Date : 03/30/2018 14:00 EST Care Management Note : Patient discharge summary sent through [facility]. Care Management Note Report : Odalys Bush Rn-Restrike Hammer Operator - 03/29/18 13:22:06 Confirmed with [facility] that patient can transfer today [phone]; [phone]. Spoke with patient's daughter Jazmine [phone] who [address] to [address] Hamilton advised and dishcarge pharmacy aware. Patient should be ready to transport by 15:00. Ninoska Cuellar Rn-Restrike Hammer Operator Ed - 03/28/18 20:23:22 CM faxed orders to [facility] for IV abx f [phone] per md orders. CM will need to call [facility] to notify them of final d/c plan per MD orders p [phone]. CM to follow for ongoing d/c planning/needs. Ninoska Cuellar, Rn-Restrike Hammer Operator Ed - 03/28/18 18:12:15 CM recieved call from Gama at [facility] stating they can take pt at their facility, but not until Saturday, as they now have an agreement with [facility]. CM then spoke with Edie from [facility] and she again confirms they can accept pt at their facility tomorrow. CM updated pt and now pt is agreeable to go to [facility]. She also gave CM permission to speak with Jazmine joshi by phone p [phone]. CM spoke with Jazmine and she is agreeable with plan for [facility], stating its much closer to them, approx 30 min. Pt tells CM that her PCP, Dr. Davis had told her that she was not able to do IV abx from home. Discharge plan will be to go to [facility] in the am. CM updated Dr. Stauffer and he reports he will notify [facility] for tomorrow. CM will cont to follow for ongoing d/c planning/needs. Ninoska Cuellar, Rn-Restrike Hammer Operator Ed - 03/28/18 16:01:02 [facility] states home cost for Rocephin is $3.70/wk. She states they may be able to contract with SNF to provide abx at pt's cost. She asked CM to have SNF call Paulo at their office to see about arranging. CM called MADELYN Corona with [facility] and she will call [facility] to see if this can be arranged. Updated BS RNAva. CM will cont to follow. Ninoska Cuellar, Rn-Restrike Hammer Operator Ed - 03/28/18 14:57:29 Called [facility] and spoke with Chiquita and updated her on IV abx needs. SHe will check cost and call CM back to see if bed offer is still on the table. CM left for [facility] with [facility] to update her, left requesting return phone call. CM updated pt and she appears discouraged that [facility] will not accept her as a pt. She tells CM that she is considering just going home. BLAKE also called Mariahjesus with [facility] to argueta abx at home. She states that [facility] may also be able to contract with facility to provide them with abx at their cost. CM faxed info on pt and abx to [facility] f [phone]. CM updated BS RN, Ava. CM will cont to follow. Ninoska Cuellar, Rn-Restrike Hammer Operator Ed - 03/28/18 14:21:[address] Jones this am and he tells CM that pt is ready for discharge from his standpoint and that ID has a plan in place for IV abx. PT does have a PICC in place. Recieved VM from [facility] with [facility] p [phone] stating they are interested in pt. CM went to BS to speak with pt to discuss bed offers. CM presented bed offers and pt tells CM that she really doesn't want to go to another facility. Pt tells CM that she only wants to go to [facility], as she has been there in the past. [facility] had not make bed offer at this time. BLAKE called and spoke with Gama in admissions at [facility] and she tells CM that per her DON, they do not believe they can meet pt's needs at this time. CM pressed for more information and Gama told CM that she would have DON call her. -BLAKE then spoke with MADELYN Corona at [facility] and she states that pt appears too sick at this time to come to their facility. BLAKE provided her with verbal updates, as well as faxed updates f [phone]. She states they will reevaluate now, knowing [...] pt at this time due to the $5594-8608 IV rocephin cost through 05/04/[address] Diaz orders. Cm to follow for ongoing d/c planning/needs. Stew Porras, RN - 03/27/18 16:25:12 edie from [facility] ( ex [phone]) called to make bed offer. bed offers will be presented to pt 03/28. [facility] [phone] Stew Porras, RN - 03/27/18 15:00:29 spoke to ID who states pt maybe ready for dc as early as 03/28. id and attending PA are recommending SNF. spoke with pt and her dtr, jazmine and informed them of suggestion from drs to dc to snf for iv abx. pt and dtr in agreement and [facility] following [place].... [place]. Stew Porras, REGULO - 03/27/18 10:34:34 RRS-43 + for BROCK CT consulted and per ID, infection must clear prior to any ant surgical intervention Currnelty on rocephin iv w/bld cx pending Documentation Status Complete : Yes Odalys Bush Rn-Restrike Hammer Operator - 03/29/2018 15:30 EST Info/List/Choices Provided Patient Offered Choice/Affiliations Explained : Yes List/Info Provided Pt/Fam/Support Person : halfway facilities Odalys Bush Rn-Restrike Hammer Operator - 03/29/2018 15:30 EST Final Discharge Disposition Note-CM Final Discharge Disposition Note-CM : Transport by Family. Discharge To Care Management : SNF with Medicare Certification-03 Name of Receiving Facility/Provider- : [facility] Odalys Bush Rn-Restrike Hammer Operator - 03/29/2018 15:30 EST documented in this encounter Plan of Treatment Not on file documented as of this encounter Visit Diagnoses Not on filedocumented in this encounter
--- OUTSIDE RECORDS SUMMARY | 2024-12-21 08:56 | XMS_ITS | Encounter Summary ---
Author Organization [employer] ([place], [place], [place], [place], [place]) Address [address] [place] [address] Care Team Providers Care Data Typist Name Role Phone Unavailable Primary Care Provider Unavailabl e Encounter Details Date Type Department Care Team (Late st Contact Info) Description 03/28/2018 Transcribed Document [facility] Family Medicine [facility] [place] [address] ProviderZion MD [address] [place] [address] Social History Tobacco Use Types Packs/Day Years Used Date Smoking Tobacco: Never Assessed Comments Unknown Sex and Gender Information Value Date Recorded Sex Assigned at Not on file Legal Sex Female 4:39 PM CDT Gender Identity Not on file Sexual Orientation Not on file documented as of this encounter Miscellaneous Notes * Cerner Conversion Note - Historical ProviderMD - 03/28/2018 11:06 AM ENDOCRINOLOGIST Patient: ETHAN LOREDO Age: 57 Years Sex: [...]
--- OUTSIDE RECORDS SUMMARY | 2024-12-21 08:56 | XMS_ITS | Encounter Summary ---
Author Organization [employer] ([place], [place], [place], [place], [place]) Address [address] [place] [address] Care Team Providers Care Supervisor Marble Name Role Phone Unavailable Primary Care Provider Unavailabl e Encounter Details Date Type Department Care Team (Late st Contact Info) Description 03/28/2018 Transcribed Document EM Family Medicine [address] [place] [address] ProviderZion MD [address] [place] [address] Social History Tobacco Use Types [...] - Historical ProviderMD - 03/28/2018 8:22 PM POLICE INVESTIGATOR Care Management Assessment/Plan Entered On: 03/28/2018 20:23 EST Performed On: 03/28/2018 20:22 EST by Ninoska Cuellar Rn-Gear Tooth Grinding Machine Operator Ed Care Management Note Anticipated Discharge Date : 04/03/2018 14:00 EST Care Management Note : CM faxed orders to [facility] for IV abx f [phone] per orders. CM will need to call [facility] to notify them of final d/c plan per orders p [phone]. CM to follow for ongoing d/c planning/needs. Care Management Note Report : Ninoska Cuellar, Rn-Gear Tooth Grinding Machine Operator Ed - 03/28/18 18:12:15 CM recieved call from Gama at [facility] stating they can take pt at their facility, but not until Saturday, as they now have an agreement with [facility]. CM then spoke with Edie from [facility] and she again confirms they can accept pt at their facility tomorrow. CM updated pt and now pt is agreeable to go to [facility]. She also gave CM permission to speak with Jazmine joshi by phone p [phone]. CM spoke with Jazmine and she is agreeable with plan for [facility], stating its much closer to them, approx 30 min. Pt tells CM that her PCP, Dr. Davis had told her that she was not able to do IV abx from home. Discharge plan will be to go to [facility] in the am. CM updated Dr. Stauffer and he reports he will notify [facility] for tomorrow. CM will cont to follow for ongoing d/c planning/needs. Ninoska Cuellar, Rn-Gear Tooth Grinding Machine Operator Ed - 03/28/18 16:01:02 [facility] states home cost for Rocephin is $3.70/wk. She states they may be able to contract with SNF to provide abx at pt's cost. She asked CM to have SNF call Paulo at their office to see about arranging. CM called MADELYN Corona with [facility] and she will call [facility] to see if this can be arranged. Updated BS RN, Ava. CM will cont to follow. Ninoska Cuellar, Rn-Gear Tooth Grinding Machine Operator Ed - 03/28/18 14:57:29 Called [facility] and spoke with Chiquita and updated her on IV abx needs. SHe will check cost and call CM back to see if bed offer is still on the table. CM left for [facility] with [facility] to update her, left requesting return phone call. CM updated pt and she appears discouraged that [facility] will not accept her as a pt. She tells CM that she is considering just going home. BLAKE also called Clem with [facility] to argueta abx at home. She states that [facility] may also be able to contract with facility to provide them with abx at their cost. CM faxed info on pt and abx to [facility] f [phone]. CM updated BS RNAva. CM will cont to follow. Ninoska Cuellar, Rn-Gear Tooth Grinding Machine Operator Ed - 03/28/18 14:21:[address] Jones this am and he tells CM that pt is ready for discharge from his standpoint and that ID has a plan in place for IV abx. PT does have a PICC in place. Recieved VM from [facility] with [facility] p [phone] stating they are interested in pt. CM went to BS to speak with pt to discuss bed offers. CM presented bed offers and pt tells CM that she really doesn't want to go to another facility. Pt tells CM that she only wants to go to [facility], as she has been there in the past. [facility] had not make bed offer at this time. CM called and spoke with Gama in admissions at [facility] and she tells CM that per her DON, they do not believe they can meet pt's needs at this time. CM pressed for more information and Gama told CM that she would have DON call her. -CM then spoke with MADELYN Corona at [facility] and she states that pt appears too sick at this time to come to their facility. CM provided her with verbal updates, as well as faxed updates f [phone]. She states they will reevaluate now, knowing [...] pt at this time due to the $6525-4169 IV rocephin cost through 05/04/[address] Diaz orders. Cm to follow for ongoing d/c planning/needs. Stew Porras, RN - 03/27/18 16:25:12 edie from [facility] [phone]) called to make bed offer. bed offers will be presented to pt 03/28. dtr will provide transportationashely [phone] Stew Porras, RN - 03/27/18 15:00:29 spoke to ID who states pt maybe ready for dc as early as 03/28. id and attending PA are recommending SNF. spoke with pt and her dtr, jazmine and informed them of suggestion from drs to dc to snf for iv abx. pt and dtr in agreement and referrlas made via [facility] to the following counties.... [place]. Stew Porras, RN - 03/27/18 10:34:34 RRS-43 + for BROCK CT consulted and per ID, infection must clear prior to any ant surgical intervention Currnelty on rocephin iv w/bld cx pending Documentation Status Complete : Yes Ninoska Cuellar, Rn-Gear Tooth Grinding Machine Operator Ed - 03/28/2018 20:22 EST Electronically signed by Jorge Alberto [facility] [employer] Conversion Automatic Silk Screen Printer Cerner at 05/29/2022 8:32 PM CDT documented in this encounter Plan of Treatment Not on file documented as of this encounter Visit Diagnoses Not on filedocumented in this encounter
--- OUTSIDE RECORDS SUMMARY | 2024-12-21 08:56 | XMS_ITS | Encounter Summary ---
Author Organization [employer] ([place], [place], [place], [place], [place]) Address [address] [place] [address] Care Team Providers Care Tip Cementer Name Role Phone Unavailable Primary Care Provider Unavailabl e Encounter Details Date Type Department Care Team (Late st Contact Info) Description 03/28/2018 Transcribed Document [facility] Family Medicine [address] [place] [address] ProviderZion MD [address] [place] [address] Social History Tobacco Use Types [...] - Historical ProviderMD - 03/28/2018 5:00 AM FUR NAILER Chart Check - Review Order Profile Entered On: 03/28/2018 6:02 EST Performed On: 03/28/2018 5:00 EST by Gabriela Reyes RN Chart Check Chart Reviewed Date and Time : 03/28/2018 6:02 EST Powerplans Initiated/Discontinued as Appropriate : Yes All Active Orders Reviewed : Yes Gabriela Reyes, REGULO - 03/28/2018 6:02 EST Electronically signed by Vinayak Azul Conversion Lead Technologist In Cytogenetics Cerner at 05/29/2022 8:51 PM CDT documented in this encounter Plan of Treatment Not on file documented as of this encounter Visit Diagnoses Not on filedocumented in this encounter
--- OUTSIDE RECORDS SUMMARY | 2024-12-21 08:56 | XMS_ITS | Encounter Summary ---
Author Organization Healthcare Address [address] [place] [address] Care Team Providers Care Tip Stitcher Name Role Phone Cosme Davis MD Primary Care Provider [phone] Encounter Details Date Type Department Care Team [...] and Family Not on file 10/13/2024 Attends Shinto Services Not on file 10/13 Active Member [...] any time in the past 12 m [facility], were you homeless or living in a fpc (including now)? No 10/13/2024 [facility] Utilities Answer Date Recorded In the [...] EST Appointment [facility] [address] [place] [address] 01/21/2025 2:00 PM EST Appointment [facility] [address] [place] [address] 01/21/2025 2:40 PM EST Office Visit [facility] [address] [place] [address] Jose Rosario MD [address] [place] [address] documented as of this encounter [...] documented as of this encounter Care Teams Tip Stitcher Relationship Specialty Start Date End Date Cosme Davis MD [address] [place] [address] PCP - General 06/24/20 documented as of this encounter
--- OUTSIDE RECORDS SUMMARY | 2024-12-21 08:56 | XMS_ITS | Clinical Summary ---
Author Organization [facility] Address [address] [place] [address] Phone Care Team Providers Care Imaging Science Professor Name Role Phone Kar RAJPUT, Willa Molina Unavailable Conditions or Problems Problem Name Problem Code Onset Date Status Entry Date Provider Comment Standard Description Annotate Other obesity due to excess calories 793735236 (SNOMED CT) 06/03 Active 06/03 Sharona Annamaria Simple obesity Nicotine dependence 43980593 (SNOMED CT) 06/03 Active 06/03 Sharona Yin Nicotine dependence Coronary artery disease, S/P CABG 07101981 (SNOMED CT) 04/11 Active 04/11 Elvira Beth Coronary arteriosclerosis ARF due to infection 409226540 (SNOMED CT) 04/11 Active 04/11 Elvira Beth Acute renal failure due to ischemia Heart valve prosthesis, infection/inf lammatory reaction, subsequent encounter T82.6xxD (ICD-10-CM ) 04/11 Active 04/11 Elvira Beth 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, subsequent encounter Acute and subacute bacterial endocarditis 309214056 (SNOMED CT) 04/11 Active 04/11 Elvira Beth Acute and subacute bacterial endocarditis Group B strep sepsis A40.1 (ICD-10-CM ) 04/11 Active 04/11 Elvira Beth Sepsis due to streptococcus, group B DM Type II 94260774 (SNOMED CT) 04/11 Active 04/11 Elvira Beth Type 2 diabetes mellitus Hypoalbuminem ia 318892331 (SNOMED CT) 04/11 Active 04/11 Elvira Beth Hypoalbuminemia Medications Medication Instructions Start Date Stop Date Generic Name NDC Provider CEFTRIAXONE SODIUM 2 GM SOLR 2gm IV Q12hrs/ [facility] [phone] Plan to start at [facility] 04/18/18 to do 2xper day infusion. CEFTRIAXONE SODIUM 82061972543 Frida Morales PENICILLIN V POTASSIUM 250 MG TABS 1 by mouth twice a day for life PENICILLIN V POTASSIUM 15953857172 Gama Diaz MD PENICILLIN V POTASSIUM 250 MG/5ML SOLR 1 by mouth twice a day 30 days PENICILLIN V POTASSIUM 63086756673 Edie Hooks RN PENICILLIN V POTASSIUM 250 MG TABS 1 by mouth twice a day 30 days PENICILLIN V POTASSIUM 46988622669 Edie Hooks RN PENICILLIN V POTASSIUM 250 MG/5ML SOLR 1 by mouth twice a day 30 days PENICILLIN V POTASSIUM 69500010359 Gama Diaz MD PENICILLIN V POTASSIUM 250 MG TABS 1 by mouth twice a day 30 days PENICILLIN V POTASSIUM 27606323521 Gama Diaz MD CARDIZEM 120 MG TABS 1 tab once daily DILTIAZEM HCL 95260074774 aThira Lucero VITAMIN D (CHOLECALCIFEROL ) 25 MCG (1000 UT) CAPS as instructed CHOLECALCIFEROL 16271435935 Tahira Lucero CEFTRIAXONE SODIUM 2 GM SOLR 2gm IV Q12hrs/ [facility] [phone] Plan to start at [facility] 04/18/18 to do 2xper day infusion. CEFTRIAXONE SODIUM 16477097832 Willa Lakhani RN PRAVASTATIN SODIUM 20 MG TABS Take one by mouth daily PRAVASTATIN SODIUM 56841674074 Garima Restrepo PLAVIX 75 MG TABS Take one by mouth daily CLOPIDOGREL BISULFATE 87699301209 Garima Restrepo NOVOLIN 70/30 (70-30) 100 UNIT/ML SUSP 20 units in AM, 10 units in PM INSULIN NPH ISOPHANE & REGULAR 03688033802 Garima Restrepo [facility] NICOTINE 21 MG/24HR PT24 1 patch daily NICOTINE 32452385014 Garima Floriandox LEVOTHYROXINE SODIUM 25 MCG TABS Take one by mouth daily LEVOTHYROXINE SODIUM 60599148078 Garima Floriandox HUMALOG 100 UNIT/ML SUBCUTANEOUS SOLUTION sliding scale INSULIN LISPRO 09811951584 Garima Floriandox GABAPENTIN 300 MG CAPS Take one by mouth daily GABAPENTIN 50168190904 Garima Floriandox FLORASTOR 250 MG CAPS Take one by mouth daily SACCHAROMYCES BOULARDII 57535542608 Garima Floriandox CELEXA 20 MG TABS Take one by mouth daily CITALOPRAM HYDROBROMIDE 21324027255 Garima Floriandox CARVEDILOL 3.125 MG TABS Take one by mouth daily CARVEDILOL 54800173603 Garima Lazarox ADULT ASPIRIN REGIMEN 81 MG ORAL TABLET DELAYED RELEASE Take one by mouth daily ASPIRIN 93117782802 Garima Lazarox AMBIEN 5 MG TABS Take/use as needed. ZOLPIDEM TARTRATE 67422260182 Garima Floriandox ALPRAZOLAM 0.5 MG TABS Take one by mouth 3 times daily, morning, afternoon and evening. ALPRAZOLAM 77679166137 Garima Floriandox CEFTRIAXONE SODIUM 2 GM SOLR 2gm IV Q24hrs/ [place] [phone] CEFTRIAXONE SODIUM 65669450844 Edie Hooks RN Medications Administered No information [...] [Ratio] by Automated count Lab Report: COMPREHENSIVE PA TABOLIC PANEL [facility] 47 mL/min/1 .73m2 >60 L Glomerular Filtration Rate Calculation Office Visit: Room 3 MEDS REVIEW Done Documenta tion of current medications (procedure) DIET BULLET LUBRICANT MIXER yes Dietary management education, guidance, and counseling (procedure) ORALTOBACUSE Never Tobacco smoking status SMOK STATUS Current every day smoker Tobacco smoking status Lab Report: COMPREHENSIVE PA TABOLIC PANEL, MISCELLANEOUS REFERRAL, SED R ... [...] reactive protein [Mass/volume] in Serum or Plasma [employer]-unk C-REACTIVE PROTEIN N GE use only - [...] Date CPT-[facility] Continue oral antibiotics 20 02/03/14 CPT-21545 CMP [id number] CBC with Differential 2019 CPT-43856 C- reactive protein CPT-sl STAT Labs CPT-30958 [facility] [id number] CBC with Differential 2018 CPT-58284 C- reactive protein CPT-[facility] Continue oral antibiotics 20 30/08/23 CPT-19229 CMP [id number] CBC with Differential 2018 CPT-33326 C- reactive protein CPT-[facility] Continue oral antibiotics 20 31/05/23 CPT-PICREM PICC Removal CPT-DC Discontinue IV antibiotics 2 CPT-jodi New Oral Antibiotic CPT-ca Continue IV antibiotics 2018 CPT-32762 CMP [id number] CBC with Differential 2018 CPT-36234 C- reactive protein Vital Signs Date Name [...]
--- OUTSIDE RECORDS SUMMARY | 2024-12-21 08:56 | XMS_ITS | Encounter Summary ---
Author Organization [employer] ([place], [place], [place], [place], [place]) Address [address] [place] [address] Care Team Providers Care Fourth Mate Name Role Phone Unavailable Primary Care Provider Unavailabl e Encounter Details Date Type Department Care Team (Late st Contact Info) Description 03/29/2018 Transcribed Document [facility] Family Medicine [address] [place] [address] ProviderZion MD [address] [place] [address] Social History Tobacco Use Types Packs/Day Years Used Date Smoking Tobacco: Never Assessed Comments Unknown Sex and Gender Information Value Date Recorded Sex Assigned at Not on file Legal Sex Female 4:39 PM CDT Gender Identity Not on file Sexual Orientation Not on file documented as of this encounter Miscellaneous Notes * Cerner Conversion Note - Historical ProviderMD - 03/29/2018 1:22 PM DONATION WORKER Nursing Discharge Summary Entered On: 03/29/2018 13:22 EST Performed On: 03/29/2018 13:22 EST by Odalys Bush Rn-Cap Blocker Discharge Documentation Discharge, Comment : Report: Joshua [phone] Discharge Summary Sent to : Joshua [phone] Odalys Bush Rn-Cap Blocker - 03/29/2018 13:22 EST Electronically signed by Jorge Alberto [facility] Conversion Lead Quality Technician Cerner at 05/29/2022 8:31 PM CDT documented in this encounter Plan of Treatment Not on file documented as of this encounter Visit Diagnoses Not on filedocumented in this encounter
--- OUTSIDE RECORDS SUMMARY | 2024-12-21 08:57 | XMS_ITS | Encounter Summary ---
Author Organization [employer] ([place], [place], [place], [place], [place]) Address [address] [place] [address] Care Team Providers Care Box Press Operator Name Role Phone Unavailable Primary Care Provider Unavailabl e Encounter Details Date Type Department Care Team (Late st Contact Info) Description 03/24/2018 Transcribed Document [facility] [place] Medicine [address] [place] [address] ProviderZion MD [address] [place] [address] Social History Tobacco Use Types [...] - Historical ProviderMD - 03/24/2018 3:32 PM MASTER PLUMBER Event Note Entered On: 03/24/2018 15:32 EST [...]
--- OUTSIDE RECORDS SUMMARY | 2024-12-21 08:57 | XMS_ITS | Encounter Summary ---
Author Organization [employer] ([place], [place], [place], [place], [place]) Address [address] [place] [address] Care Team Providers Care Websphere Developer Name Role Phone Unavailable Primary Care Provider Unavailabl e Encounter Details Date Type Department Care Team (Late st Contact Info) Description 03/27/2018 Transcribed Document [facility] [place] Family Medicine [address] [place] [address] ProviderZion MD [address] [place] [address] Social History Tobacco Use Types [...] - Historical ProviderMD - 03/27/2018 5:00 AM STAGE DRIVER Chart Check - Review Order Profile Entered [...]
--- OUTSIDE RECORDS SUMMARY | 2024-12-21 08:57 | XMS_ITS | Encounter Summary ---
Author Organization [employer] ([place], [place], [place], [place], [place]) Address [address] [place] [address] Care Team Providers Care Electric Blanket Wirer Name Role Phone Unavailable Primary Care Provider Unavailabl e Encounter Details Date Type Department Care Team (Late st Contact Info) Description 03/27/2018 Transcribed Document [facility] [place] [address] [place] [address] ProviderZion MD [address] [place] [address] Social History Tobacco Use Types [...] - Historical ProviderMD - 03/27/2018 2:00 AM AUTOMOTIVE TEACHER Saw Runner Details Entered On: 03/27/2018 5:00 EST Performed [...]
--- OUTSIDE RECORDS SUMMARY | 2024-12-21 08:57 | XMS_ITS | Encounter Summary ---
Author Organization [employer] ([place], [place], [place], [place], [place]) Address [address] [place] [address] Care Team Providers Care Retail Shift Leader Name Role Phone Unavailable Primary Care Provider Unavailabl e Encounter Details Date Type Department Care Team (Late st Contact Info) Description 03/25/2018 Transcribed Document [facility] [place] Family Medicine [facility] [place] [address] ProviderZion MD [address] [place] [phone] Social History Tobacco Use Types Packs/Day Years Used Date Smoking Tobacco: Never Assessed Comments Unknown Sex and Gender Information Value Date Recorded Sex Assigned at Not on file Legal Sex Female 4:39 PM CDT Gender Identity Not on file Sexual Orientation Not on file documented as of this encounter Miscellaneous Notes * Cerner Conversion Note - Historical ProviderMD - 03/25/2018 1:44 PM BLOCK PAVER Patient: ETHAN LOREDO Age: 57 Years Sex: [...] underlying sinus rhythm. 2. Biventricular internal cardioverter-defibrillator [employer]tronic, this device was reprogrammed, the values as [...]
--- OUTSIDE RECORDS SUMMARY | 2024-12-21 08:57 | XMS_ITS | Encounter Summary ---
Author Organization [employer] ([place], [place], [place], [place], [place]) Address [address] [place] [address] Care Team Providers Care Extrusion Utility Worker Name Role Phone Unavailable Primary Care Provider Unavailabl e Encounter Details Date Type Department Care Team (Late st Contact Info) Description 03/25/2018 Transcribed Document [facility] [place] Family Medicine [address] [place] [address] ProviderZion MD [address] [place] [address] Social History Tobacco Use Types [...] - Historical ProviderMD - 03/25/2018 5:00 PM FUNDING SPECIALIST Chart Check - Review Order Profile [...]
--- OUTSIDE RECORDS SUMMARY | 2024-12-21 08:57 | XMS_ITS | Encounter Summary ---
Author Organization [employer] ([place], [place], [place], [place], [place]) Address [address] [place] [address] Care Team Providers Care Recovery Room Nurse Name Role Phone Unavailable Primary Care Provider Unavailabl e Encounter Details Date Type Department Care Team (Late st Contact Info) Description 03/24/2018 Transcribed Document [facility] [place] Family Medicine [address] [place] [address] ProviderZion MD [address] [place] [address] Social History Tobacco Use Types Packs/Day Years Used Date Smoking Tobacco: Never Assessed Comments Unknown Sex and Gender Information Value Date Recorded Sex Assigned at Not on file Legal Sex Female 4:39 PM CDT Gender Identity Not on file Sexual Orientation Not on file documented as of this encounter Miscellaneous Notes * Cerner Conversion Note - Historical ProviderMD - 03/24/2018 1:34 PM GRAIN SHOVELER Consult Phone Call Documentation Entered On: 03/24/2018 14:54 EST Performed On: 03/24/2018 14:55 EST by MANE CARROLL Phone Call for Consults Consult Phone Call/Page Attempt : First call Consult Reason : Called in Consult on 03/24/18 at 1455 for: +positive blood cultures at [facility] perDr. Christian COLETHA - 03/24/2018 14:53 EST Electronically signed by Maria [facility] Conversion Rubber Mixer Cerner at 05/29/2022 8:51 PM CDT documented in this encounter Plan of Treatment Not on file documented as of this encounter Visit Diagnoses Not on filedocumented in this encounter
--- OUTSIDE RECORDS SUMMARY | 2024-12-21 08:57 | XMS_ITS | Encounter Summary ---
Author Organization [employer] ([place], [place], [place], [place], [place]) Address [address] [place] [address] Care Team Providers Care Senior Oracle Applications Developer Name Role Phone Unavailable Primary Care Provider Unavailabl e Encounter Details Date Type Department Care Team (Late st Contact Info) Description 05/07/2018 Transcribed Document [facility] [place] [facility] [place] [address] ProviderZion MD [address] [place] [id number] Social History Tobacco Use Types Packs/Day [...] Zion ProviderMD - 05/07/2018 4:09 PM CDT [address] [place] [id number] Patient Copy Patient Information: Name: ETHAN CRONIN Current Date: 05/07/2018 16:09:51 : 1960 Patient Address: [address] [place] [id number] Patient Attending Physician: AJAY MARCANO MD-GUICHO Primary Care Provider: SUJIT DAWKINS (REF)IFTIKHAR Primary Care Provider Discharge Diagnosis: Weight on Admission: 163 lb, 0 oz Comment: Follow-up Instructions: With: Address: When: JOHN TSAI [address] [place] [address] [place]1) 11:45 AM With: Address: Jenn: AJAY MARCANO [address] [place] [address] [employer] (1) Within 2 to 3 days Comments: [...] you are awake and alert. ??? Take mmav-laf-rhhyveb and prescription medicines only as told by [...] 11/18/2013 Document Revised: 07/02/2016 Document Reviewed: 05/19/2016 [employer] Interactive Patient Education ? 2017 [employer] Transesophageal Echocardiogram Transesophageal echocardiography (BROCK) is [...] 11/25/2009 Document Revised: 07/05/2016 Document Reviewed: 07/30/2013 [employer] Interactive Patient Education ? 2017 [employer] CIGARETTE SMOKING: The facts are clear, cigarette smoking will shorten your life. Smoking can cause many illnesses along the way. As a healthcare provider, we recommend that you stop smoking. Assistance with quitting is available by contacting 5-989-JUHV-NOW. This is a free resource providing counseling, [...] Be sure to sign up for the [employer] patient portal, which gives you 03/09 access to your medical information ??? including these discharge instructions ??? using your computer, smartphone, or tablet. Just go to [employer] to get started. Questions? Call . [facility] would like to thank you for allowing us to assist you with your healthcare needs. GERTRUDE Mcconnell VERONICA GAY, (or ambulatory service representative) have received the above patient education materials/instructions and have verbalized understanding: Patient Signature _ Date/Time Patient Parlor Maid Signature (if needed) Date/Time Clinician/Hospital Parlor Maid Signature (if needed) Date/Time Electronically signed by Interface, [facility] Conversion Psychiatric Specialist Cerner at 05/29/2022 8:55 PM CDT documented in this encounter Plan of Treatment Not on file documented as of this encounter Visit Diagnoses Not on filedocumented in this encounter
--- OUTSIDE RECORDS SUMMARY | 2024-12-21 08:57 | XMS_ITS | Encounter Summary ---
Author Organization [employer] ([place], [place], [place], [place], [place]) Address [address] [place] [address] Care Team Providers Care Field Ironworker Name Role Phone Unavailable Primary Care Provider Unavailabl e Encounter Details Date Type Department Care Team (Late st Contact Info) Description 03/27/2018 Transcribed Document [facility] [place] [facility] [place] [address] ProviderZion MD [address] [place] [address] Social History Tobacco Use Types [...] - Historical ProviderMD - 03/27/2018 4:23 PM RESERVOIR ENGINEER Care Management Assessment/Plan Entered On: 03/27/2018 16:25 EST Performed On: 03/27/2018 16:23 EST by Stew Porras RN Care Management Note Anticipated Discharge Date : 04/03/2018 14:00 EST Care Management Note : blayne from [facility] ( ex 108) called to make bed offer. bed offers will be presented to pt 03/28. [place] [phone] Care Management Note Report : Stew Porras [...] - 03/27/2018 16:23 EST Electronically signed by [facility] Conversion Lye Treater Cerner at 05/29/2022 8:47 PM CDT documented in this encounter Plan of Treatment Not on file documented as of this encounter Visit Diagnoses Not on filedocumented in this encounter
--- OUTSIDE RECORDS SUMMARY | 2024-12-21 08:57 | XMS_ITS | Encounter Summary ---
Author Organization [employer] ([place], [place], [place], [place], [place]) Address [address] [place] [address] Care Team Providers Care Blood Bank Manager Name Role Phone Unavailable Primary Care Provider Unavailabl e Encounter Details Date Type Department Care Team (Late st Contact Info) Description 03/25/2018 Transcribed Document [facility] [place] Family Medicine [address] [place] [address] ProviderZion MD [address] [place], [place] [phone] Social History Tobacco Use Types Packs/Day Years Used Date Smoking Tobacco: Never Assessed Comments Unknown Sex and Gender Information Value Date Recorded Sex Assigned at Not on file Legal Sex Female 4:39 PM CDT Gender Identity Not on file Sexual Orientation Not on file documented as of this encounter Miscellaneous Notes * Cerner Conversion Note - Historical ProviderMD - 03/25/2018 2:00 AM RETAIL FINANCIAL ANALYST Cooker Chip Details Entered On: 03/25/2018 4:05 EST Performed [...]
--- OUTSIDE RECORDS SUMMARY | 2024-12-21 08:57 | XMS_ITS | Encounter Summary ---
Author Organization [employer] ([place], [place], [place], [place], [place]) Address [address] [place] [address] Care Team Providers Care Party Demonstrator Name Role Phone Unavailable Primary Care Provider Unavailabl e Encounter Details Date Type Department Care Team (Late st Contact Info) Description 03/25/2018 Transcribed Document [facility] [place] Family Medicine [address] [place] [address] ProviderZion MD [address] [place], [place] [phone] Social History Tobacco Use Types Packs/Day Years Used Date Smoking Tobacco: Never Assessed Comments Unknown Sex and Gender Information Value Date Recorded Sex Assigned at Not on file Legal Sex Female 4:39 PM CDT Gender Identity Not on file Sexual Orientation Not on file documented as of this encounter Miscellaneous Notes * Cerner Conversion Note - Zion Alonso MD - 03/25/2018 7:28 AM MFG ASSOC DATE OF CONSULTATION: 03/24/2018 ELECTROPHYSIOLOGY CONSULTATION REFERRING HOSPITALIST: Omar Nelson M.D. CONSULTING TEACHER SELECTION SPECIALIST: Jorge Hawkins MD REASON FOR CONSULTATION: Bradycardia. [...] been seen by Dr. Beard in the [facility]. The patient does have a history of [...] count of 379. [place] 1[place] [address]. Liver enzymes normal. EKG shows biventricular paced [...] CC1: Jorge Hawkins M.D. CC2: Dr. Beard; [place], [place] Electronically signed by Jorge Alberto [facility] Conversion Mortar Carrier Cerner at 05/29/2022 8:43 PM CDT documented in this encounter Plan of Treatment Not on file documented as of this encounter Visit Diagnoses Not on filedocumented in this encounter
--- OUTSIDE RECORDS SUMMARY | 2024-12-21 08:57 | XMS_ITS | Encounter Summary ---
Author Organization [employer] ([place], [place], [place], [place], [place]) Address [address] [place] [address] Care Team Providers Care Brokerage Office Manager Name Role Phone Unavailable Primary Care Provider Unavailabl e Encounter Details Date Type Department Care Team (Late st Contact Info) Description 03/27/2018 Transcribed Document [facility] [place] [facility] [place] [address] ProviderZion MD [address] [place] [phone] Social History Tobacco Use Types Packs/Day Years Used Date Smoking Tobacco: Never Assessed Comments Unknown Sex and Gender Information Value Date Recorded Sex Assigned at Not on file Legal Sex Female 4:39 PM CDT Gender Identity Not on file Sexual Orientation Not on file documented as of this encounter Miscellaneous Notes * Cerner Conversion Note - Zion Alonso MD - 03/27/2018 9:17 AM OFFICE COORDINATOR Patient: ETHAN CRONIN Age: 57 years Sex: Female : 1960 Associated Diagnoses: None Author: CARROLL HIGH MD-INF Basic Information CC: Sepsis bacteremia 03/19/18 4/4 bottles for Group b strep ([facility]), mitral prosthetic valve endocarditis History of Present Illness 57-year-old white female with history of bladder cancer, atrial flutter, pacemaker placement 2016, hypertension, DM2, COPD, pancreatitis, who recently had blood cultures obtained at [facility] on 03/19/18 for fever which were positive in 4 out of 4 bottles for group B Streptococcus. Patient was to start IV antibiotics but was found to have bradycardia and was admitted to [facility] on 03/23/17. I was consulted on 03/25/17. The patient had been started on vancomycin and Rocephin. Urine culture obtained at [facility] was positive for multiple bacteria consistent with [...] cefTRIAXone (Rocephin) - 2 Gram, IV Piggyback, [id number], infuse over 30 Minute(s), Routine Anticoagulant heparin [...] Normal strength, No tenderness. Integumentary: Warm, Dry, [place], No pallor, No rash, Left chest wall [...] 10) Troponin <0.015 (FEB 10) , ACC: [id number] ORDER: Culture Blood DATE: 03/23/2018 17:49 SOURCE: Blood SITE: Reports Pre 03/26/2018 23:01 No growth at 3 days. Pre 03/25/2018 23:01 No growth at 2 days. Pre 03/24/2018 23:02 No growth at 1 day. Pre 03/24/2018 16:03 Culture less than 24 Hrs old == ACC: [id number] ORDER: Culture Blood DATE: 03/23/2018 17:49 SOURCE: [...] of 4 blood culture bottles positive at [facility] (spoke to Maurice Spencer, at [facility]). BROCK consistent with mitral valve [...] and discussed with Dr. Perez's service, cardiology. web site project manager: Please arrange for outpatient IV antibiotics with Rocephin 2 g IV every 12 hours until 05/04/18. Follow CBC, CMP, CRP weekly while on IV antibiotics. Fax orders to [phone], and call [phone] with final arrangements. Arrange for follow-up with me in 2 weeks post discharge. documented in this encounter Plan of Treatment Not on file documented as of this encounter Visit Diagnoses Not on filedocumented in this encounter
--- OUTSIDE RECORDS SUMMARY | 2024-12-21 08:57 | XMS_ITS | Encounter Summary ---
Author Organization [employer] ([place], [place], [place], [place], [place]) Address [address] [place] [address] Care Team Providers Care Greeting Card Maker Name Role Phone Unavailable Primary Care Provider Unavailabl e Encounter Details Date Type Department Care Team (Late st Contact Info) Description 03/27/2018 Transcribed Document [facility] [place] [address] [place] [address] ProviderZion MD [address] [place] [phone] Social History Tobacco Use Types Packs/Day Years Used Date Smoking Tobacco: Never Assessed Comments Unknown Sex and Gender Information Value Date Recorded Sex Assigned at Not on file Legal Sex Female 4:39 PM CDT Gender Identity Not on file Sexual Orientation Not on file documented as of this encounter Miscellaneous Notes * Cerner Conversion Note - Zion Alonso MD - 03/27/2018 9:26 AM CATALOGUE AND SPECIAL PRODUCTS MANAGER Patient: ETHAN CRONIN Age: 57 years Sex: Female : 1960 Associated Diagnoses: None Author: AJAY MARCANO MD-CAR Basic Information PCP: Unknown Sorting Machine Attendant: Chief Complaint Vegetation on prosthetic mitral valve [...] Oral, Daily cefTRIAXone 2 Gram, IV Piggyback, [id number] citalopram 20 mg tab 20 mg 1 [...] Bedtime Problem list: All Problems Anxiety / 36555280 / Confirmed Atrial flutter / 1812316 / Confirmed COPD (chronic obstructive pulmonary disease) / 89460856 / Confirmed Depression / 17209970 / Confirmed Diabetes / 654879905 / Confirmed Hyperlipidemia / 75848026 / Confirmed Hypertension / 7973490349 / Confirmed Bladder cancer / 7677229347 / Confirmed Pancreatitis / 176553373 / Confirmed Tobacco abuse / 160978361 / Confirmed Histories No education data available. Social & Psychosocial Habits Tobacco 02/17/2015 Tobacco Use Within Last Twelve Months Cigarettes Smoking Status Current every day smoker Years of Tobacco Use 40 Packs/Tins Daily 1 Smoking Cessation Information Provided Yes Past Medical History: Active CAD - Coronary artery disease (9682107924) Cardiomyopathy (157896264) HLD - Hyperlipidemia (723569852) HTN - Hypertension (2638360413) Resolved COPD - Chronic obstructive pulmonary disease (166092396): Resolved. Family History: No family history items have been selected or recorded. Procedure history: CABG in 2016 at 55 Years. MAZE in 2016 at 55 Years. Cholecystectomy; (84605). Comments: 02/17/2015 11:52 - SUSI BOWMAN RN [...] of motion, Normal strength. Integumentary: Warm, Dry, [place]. Neurologic: Alert, Oriented. Psychiatric: Cooperative, Appropriate mood & affect. Review / Management MAR 27 07:36 136 104 H 33 / H 137 4.0 L 20 0.90 \ Cardiac Markers (Current Encounter/Past 24 Hours) No Cardiac Marker Results Found (Past 24 Hours) Blood Gases (Current Encounter/Past 24 Hours) No Blood Gas Results Found (Past 24 Hours) Radiology Results (Last 48 hours) [id number] -- 03/23/2018 17:08 CT Abdomen Pelvis WO [...]
--- OUTSIDE RECORDS SUMMARY | 2024-12-21 08:57 | XMS_ITS | Encounter Summary ---
Author Organization [employer] ([place], [place], [place], [place], [place]) Address [address] [place] [address] Care Team Providers Care Manager Lean Name Role Phone Unavailable Primary Care Provider Unavailabl e Encounter Details Date Type Department Care Team (Late st Contact Info) Description 03/27/2018 Transcribed Document [facility] [place] [facility] [place] [address] ProviderZion MD [address] [place] [phone] Social History Tobacco Use Types Packs/Day Years Used Date Smoking Tobacco: Never Assessed Comments Unknown Sex and Gender Information Value Date Recorded Sex Assigned at Not on file Legal Sex Female 4:39 PM CDT Gender Identity Not on file Sexual Orientation Not on file documented as of this encounter Miscellaneous Notes * Cerner Conversion Note - Historical ProviderMD - 03/27/2018 9:05 AM MANAGER INTEGRATION Patient: ETHAN LOREDO Age: 57 Years Sex: [...] regurgitation. Electronically signed by Vinayak Azul Conversion Heavy Equipment Diesel Mechanic Cerner at 05/29/2022 8:29 PM CDT documented in this encounter Plan of Treatment Not on file documented as of this encounter Visit Diagnoses Not on filedocumented in this encounter
--- OUTSIDE RECORDS SUMMARY | 2024-12-21 08:57 | XMS_ITS | Encounter Summary ---
Author Organization [employer] ([place], [place], [place], [place], [place]) Address [address] [place] [address] Care Team Providers Care Janitor Supervisor Name Role Phone Unavailable Primary Care Provider Unavailabl e Encounter Details Date Type Department Care Team (Late st Contact Info) Description 03/27/2018 Transcribed Document [facility] [place] [address] [place] [address] ProviderZion MD [address] [place], [place] [phone] Social History Tobacco Use Types Packs/Day Years Used Date Smoking Tobacco: Never Assessed Comments Unknown Sex and Gender Information Value Date Recorded Sex Assigned at Not on file Legal Sex Female 4:39 PM CDT Gender Identity Not on file Sexual Orientation Not on file documented as of this encounter Miscellaneous Notes * Cerner Conversion Note - Historical ProviderMD - 03/27/2018 8:16 AM ENGLISH PROFESSOR Consult Phone Call Documentation Entered On: 03/27/2018 [...] - 03/27/2018 11:26 EST Electronically signed by Vinayak Azul Conversion Advertising Operations Manager Cerner at 05/29/2022 8:38 PM CDT documented in this encounter Plan of Treatment Not on file documented as of this encounter Visit Diagnoses Not on filedocumented in this encounter
--- OUTSIDE RECORDS SUMMARY | 2024-12-21 08:57 | XMS_ITS | Encounter Summary ---
Author Organization [employer] ([place], [place], [place], [place], [place]) Address [address] [place] [address] Care Team Providers Care Industrial Property Appraiser Name Role Phone Unavailable Primary Care Provider Unavailabl e Encounter Details Date Type Department Care Team (Late st Contact Info) Description 03/26/2018 Transcribed Document [facility] [place] [facility] [place] [address] ProviderZion MD [address] [place] [phone] Social History Tobacco Use Types Packs/Day Years Used Date Smoking Tobacco: Never Assessed Comments Unknown Sex and Gender Information Value Date Recorded Sex Assigned at Not on file Legal Sex Female 4:39 PM CDT Gender Identity Not on file Sexual Orientation Not on file documented as of this encounter Miscellaneous Notes * Cerner Conversion Note - Zion Alonso MD - 03/26/2018 10:05 AM MACHINE BUNCH MAKER Patient: ETHAN CRONIN Age: 57 years Sex: Female : 1960 Associated Diagnoses: None Author: CARROLL HIGH MD-INF Basic Information CC: Sepsis bacteremia 03/19/18 4/4 bottles for Group b strep ([facility]) History of Present Illness 57-year-old white female with history of bladder cancer, atrial flutter, pacemaker placement 2016, hypertension, DM2, COPD, pancreatitis, who recently had blood cultures obtained at [facility] on 03/19/18 for fever which were positive in 4 out of 4 bottles for group B Streptococcus. Patient was to start IV antibiotics but was found to have bradycardia and was admitted to [facility] on 03/23/17. I was consulted on 03/25/17. The patient had been started on vancomycin and Rocephin. Urine culture obtained at [facility] was positive for multiple bacteria consistent [...] cefTRIAXone (Rocephin) - 2 Gram, IV Piggyback, [id number], infuse over 30 Minute(s), Routine Anticoagulant heparin [...] Normal strength, No tenderness. Integumentary: Warm, Dry, [place], No pallor, No rash, Left chest wall [...] 10) Troponin <0.015 (FEB 10) , ACC: [id number] ORDER: Culture Blood DATE: 03/23/2018 17:49 SOURCE: Blood SITE: Reports Pre 03/25/2018 23:01 No growth at 2 days. Pre 03/24/2018 23:02 No growth at 1 day. Pre 03/24/2018 16:03 Culture less than 24 Hrs old == ACC: [id number] ORDER: Culture Blood DATE: 03/23/2018 17:49 SOURCE: Blood SITE: Reports Pre 03/25/2018 23:01 No growth at 2 days. Pre 03/24/2018 23:02 No growth at 1 day. Pre 03/24/2018 16:03 Culture less than 24 Hrs old == . Procedure Critical Care - Code Management Assessment: Radiology Results (Last 48 hours) [id number] -- 03/23/2018 17:08 CT Abdomen Pelvis WO [...] of 4 blood culture bottles positive at [facility] (spoke to Maurice Spencer, at [facility]). The high-grade bacteremia suggests intravascular source [...]
--- OUTSIDE RECORDS SUMMARY | 2024-12-21 08:57 | XMS_ITS | Encounter Summary ---
Author Organization [employer] ([place], [place], [place], [place], [place]) Address [address] [place] [address] Care Team Providers Care Press Box Custodian Name Role Phone Unavailable Primary Care Provider Unavailabl e Encounter Details Date Type Department Care Team (Late st Contact Info) Description 03/28/2018 Transcribed Document [facility] [place] Family Medicine [address] [place] [address] ProviderZion MD [address] [place], [place] [id number] Social History Tobacco Use Types Packs/Day Years Used Date Smoking Tobacco: Never Assessed Comments Unknown Sex and Gender Information Value Date Recorded Sex Assigned at Not on file Legal Sex Female 4:39 PM CDT Gender Identity Not on file Sexual Orientation Not on file documented as of this encounter Miscellaneous Notes * Cerner Conversion Note - Historical ProviderMD - 03/28/2018 2:00 AM ENTRY SPECIALISTS Geodetic Survey Director Details Entered On: 03/28/2018 6:03 EST [...]
--- OUTSIDE RECORDS SUMMARY | 2024-12-21 08:57 | XMS_ITS | Encounter Summary ---
Author Organization [employer] ([place], [place], [place], [place], [place]) Address [address] [place] [address] Care Team Providers Care Metal Spinner Name Role Phone Unavailable Primary Care Provider Unavailabl e Encounter Details Date Type Department Care Team (Late st Contact Info) Description 03/27/2018 Transcribed Document [facility] [place] Family Medicine [facility] [place] [address] ProviderZion MD [address] [place] [address] Social History Tobacco Use Types [...] - Historical ProviderMD - 03/27/2018 2:54 PM LIMB DRIVER Care Management Assessment/Plan Entered On: 03/27/2018 15:00 [...] in agreement and referrlas made via [facility] to the following counties.... [place] [...]
--- OUTSIDE RECORDS SUMMARY | 2024-12-21 08:57 | XMS_ITS | Referral Summary ---
Author Organization [employer] ([place], [place], [place], [place], [place]) Address [address] [place] [address] Care Team Providers Care Freight Brakeman Name Role Phone Unavailable Primary Care Provider [...]
--- OUTSIDE RECORDS SUMMARY | 2024-12-21 08:57 | XMS_ITS | Encounter Summary ---
Author Organization [employer] ([place], [place], [place], [place], [place]) Address [address] [place] [address] Care Team Providers Care Cloud Systems Architect Name Role Phone Unavailable Primary Care Provider Unavailabl e Encounter Details Date Type Department Care Team (Late st Contact Info) Description 03/25/2018 Transcribed Document [facility] [place] Family Medicine [address] [place] [address] ProviderZion MD [address] [place] [address] Social History Tobacco Use Types [...] - Historical ProviderMD - 03/25/2018 5:00 AM REFINERY OPERATOR COKING Chart Check - Review Order Profile Entered On: 03/25/2018 4:05 EST Performed On: 03/25/2018 5:00 EST by Carolina Valenzuela RN Chart Check Chart Reviewed Date and Time : 03/25/2018 4:05 EST Carolina Valenzuela RN - 03/25/2018 4:05 EST Electronically signed by Jorge [facility] Conversion Pumper Helper Cerner at 05/29/2022 8:34 PM CDT documented in this encounter Plan of Treatment Not on file documented as of this encounter Visit Diagnoses Not on filedocumented in this encounter
--- OUTSIDE RECORDS SUMMARY | 2024-12-21 08:57 | XMS_ITS | Encounter Summary ---
Author Organization [employer] ([place], [place], [place], [place], [place]) Address [address] [place] [address] Care Team Providers Care Escrow Officer Name Role Phone Unavailable Primary Care Provider Unavailabl e Encounter Details Date Type Department Care Team (Late st Contact Info) Description 03/26/2018 Transcribed Document [facility] [place] [address] [place] [address] ProviderZion MD [address] [place] [address] Social History Tobacco Use Types Packs/Day Years Used Date Smoking Tobacco: Never Assessed Comments Unknown Sex and Gender Information Value Date Recorded Sex Assigned at Not on file Legal Sex Female 4:39 PM CDT Gender Identity Not on file Sexual Orientation Not on file documented as of this encounter Miscellaneous Notes * Cerner Conversion Note - Historical ProviderMD - 03/26/2018 10:40 AM STEWARD/STEWARDESS SECOND CLASS Patient: ETHAN LOREDO Age: 57 Years Sex: [...]
--- OUTSIDE RECORDS SUMMARY | 2024-12-21 08:57 | XMS_ITS | Encounter Summary ---
Author Organization [employer] ([place], [place], [place], [place], [place]) Address [address] [place] [address] Care Team Providers Care Corridor Redevelopment Manager Name Role Phone Unavailable Primary Care Provider Unavailabl e Encounter Details Date Type Department Care Team (Late st Contact Info) Description 03/25/2018 Transcribed Document [facility] [place] [facility] [place] [address] ProviderZion MD [address] [place] [id number] Social History Tobacco Use Types Packs/Day Years Used Date Smoking Tobacco: Never Assessed Comments Unknown Sex and Gender Information Value Date Recorded Sex Assigned at Not on file Legal Sex Female 4:39 PM CDT Gender Identity Not on file Sexual Orientation Not on file documented as of this encounter Miscellaneous Notes * Cerner Conversion Note - Zion Alonso MD - 03/25/2018 9:14 AM NATURAL RESOURCES ENGINEER Patient: ETHAN CRONIN Age: 57 years Sex: Female : 1960 Associated Diagnoses: None Author: CARROLL HIGH MD-INF Basic Information CC: Sepsis bacteremia 03/19/18 4/4 bottles for Group b strep ([facility]) History of Present Illness 57-year-old white [...] to have bradycardia and was admitted to [facility] on 03/23/17. I was consulted on [...] cefTRIAXone (Rocephin) - 2 Gram, IV Piggyback, [id number], infuse over 30 Minute(s), Routine vancomycin + Sodium Chloride 0.9% intravenous solution 250 m - 750 mg, IV Piggyback, [id number], infuse over 1 Hour(s) Anticoagulant heparin - [...] 11:52 - SUSI BOWMAN RN 2006 Cholecystectomy; ([id number]). Comments: 02/17/2015 11:52 - SUSI BOWMAN RN 2007 umbilical hernia repair. Social History Social & Psychosocial Habits Tobacco 02/17/2015 Tobacco Use Within Last Twelve Months Cigarettes Smoking Status Current every day smoker Years of Tobacco Use 40 Packs/Tins Daily 1 Smoking Cessation Information Provided Yes . , 3 children, lives in [facility] about 1[place]/2 hours from [place].. Physical Examination VS/Measurements Vitals Signs (last 24 [...] Normal strength, No tenderness. Integumentary: Warm, Dry, [address], No pallor, No rash, Left chest wall [...] No Radiology Results Found Diagnostic Findings: ACC: [id number] ORDER: Culture Blood DATE: 03/23/2018 17:49 SOURCE: Blood SITE: Reports Pre 03/24/2018 23:02 No growth at 1 day. Pre 03/24/2018 16:03 Culture less than 24 Hrs old == [facility]: [id number] ORDER: Culture Blood DATE: 03/23/2018 17:49 SOURCE: Blood SITE: Reports Pre 03/24/2018 23:02 No growth at 1 day. Pre 03/24/2018 16:03 Culture less than 24 Hrs old == . Impression and Plan 1. Group B streptococcus sepsis 03/19/18 in 4 out of 4 blood culture bottles positive at [facility] (spoke to Maurice Spencer, at [facility]). The high-grade bacteremia suggests intravascular source [...]
--- OUTSIDE RECORDS SUMMARY | 2024-12-21 08:57 | XMS_ITS | Encounter Summary ---
Author Organization [employer] ([place], [place], [place], [place], [place]) Address [address] [place] [address] Care Team Providers Care Blocker And Polisher Name Role Phone Unavailable Primary Care Provider Unavailabl e Encounter Details Date Type Department Care Team (Late st Contact Info) Description 03/27/2018 Transcribed Document [facility] [place] Family Medicine [address] [place] [address] ProviderZion MD [address] [place], [place] [phone] Social History Tobacco Use Types Packs/Day Years Used Date Smoking Tobacco: Never Assessed Comments Unknown Sex and Gender Information Value Date Recorded Sex Assigned at Not on file Legal Sex Female 4:39 PM CDT Gender Identity Not on file Sexual Orientation Not on file documented as of this encounter Miscellaneous Notes * Cerner Conversion Note - Historical ProviderMD - 03/27/2018 8:58 AM BOTTLE WASHER MACHINE Consult Phone Call Documentation Entered On: 03/27/2018 [...]
--- OUTSIDE RECORDS SUMMARY | 2024-12-21 08:57 | XMS_ITS | Encounter Summary ---
Author Organization [employer] ([place], [place], [place], [place], [place]) Address [address] [place] [address] Care Team Providers Care Gambling Floor Supervisor Name Role Phone Unavailable Primary Care Provider Unavailabl e Encounter Details Date Type Department Care Team (Late st Contact Info) Description 03/25/2018 Transcribed Document [facility] [place] Family Medicine [place] [address] ProviderZion MD [address] [place] [address] Social History Tobacco Use Types Packs/Day Years Used Date Smoking Tobacco: Never Assessed Comments Unknown Sex and Gender Information Value Date Recorded Sex Assigned at Not on file Legal Sex Female 4:39 PM CDT Gender Identity Not on file Sexual Orientation Not on file documented as of this encounter Miscellaneous Notes * Cerner Conversion Note - Zion ProviderMD - 03/25/2018 8:01 AM GAS MAKER Patient: ETHAN CRONIN Age: 57 years Sex: Female : 1960 Associated Diagnoses: None Author: NAVID STARKEY, [facility] 57 year old female with bradycardia during outpt infusion for bacteremia PMH: CAD, CABG/pacemaker 3 years ago, DM, HTN, and [place] Consult: vancomycin Indication: bacteremia Goal of Trough: [...] will continue to follow Navid Starkey RPh Electronically signed by Vinayak Azul Conversion Bar Machine Operator Multiple Spindle Tata at 05/29/2022 8:46 PM CDT documented in this encounter Plan of Treatment Not on file documented as of this encounter Visit Diagnoses Not on filedocumented in this encounter
--- OUTSIDE RECORDS SUMMARY | 2024-12-21 08:57 | XMS_ITS | Encounter Summary ---
Author Organization [employer] ([place], [place], [place], [place], [place]) Address [address] [place] [address] Care Team Providers Care Cops Name Role Phone Unavailable Primary Care Provider Unavailabl e Encounter Details Date Type Department Care Team (Late st Contact Info) Description 03/26/2018 Transcribed Document [facility] [place] [address] [place] [address] ProviderZion MD [address] [place], [place] [phone] Social History Tobacco Use Types Packs/Day Years Used Date Smoking Tobacco: Never Assessed Comments Unknown Sex and Gender Information Value Date Recorded Sex Assigned at Not on file Legal Sex Female 4:39 PM CDT Gender Identity Not on file Sexual Orientation Not on file documented as of this encounter Miscellaneous Notes * Cerner Conversion Note - Historical ProviderMD - 03/26/2018 5:00 AM MEDICAL TECHNOLOGIST Chart Check - Review Order Profile Entered [...]
--- OUTSIDE RECORDS SUMMARY | 2024-12-21 08:57 | XMS_ITS | Clinical Summary ---
[facility] Address [address] [place] [address] Care Team Providers Care Deck Lid Fitter Name Role Phone Cosme Davis MD Primary [...] Insurance MEDICARE A & B Care Teams Deck Lid Fitter Relationship Specialty Start Date End Date Cosme Davis MD [address] [facility] [address] ATTN: [place] [address] PCP - General Emergency Medicine 06/04/18
--- OUTSIDE RECORDS SUMMARY | 2024-12-21 08:57 | XMS_ITS | Encounter Summary ---
Author Organization [employer] ([place], [place], [place], [place], [place]) Address [address] [place] [address] Care Team Providers Care Financial Officer Name Role Phone Unavailable Primary Care Provider Unavailabl e Encounter Details Date Type Department Care Team (Late st Contact Info) Description 03/28/2018 Transcribed Document [facility] [place] Family Medicine [facility] [place] [address] ProviderZion MD [address] [place] [address] Social History Tobacco Use Types [...] - Historical ProviderMD - 03/28/2018 2:27 PM CLINICAL UNIT EDUCATOR Care Management Assessment/Plan Entered On: 03/28/2018 14:57 EST Performed On: 03/28/2018 14:27 EST by Ninoska Cuellar Rn-Cheesemaker Helper Ed Care Management Note Anticipated Discharge Date : 04/03/2018 14:00 EST Care Management Note : Called [facility] and spoke with Chiquita and updated her on IV abx needs. SHe will check cost and call CM back to see if bed offer is still on the table. CM left VM for Sheri with [facility] to update her, left requesting return phone call. CM updated pt and she appears discouraged that [facility] will not accept her as a pt. She tells CM that she is considering just going home. BLAKE also called Clem with [facility] to argueta abx at home. She states that [facility] may also be able to contract with facility to provide them with abx at their cost. CM faxed info on pt and abx to [facility] f [phone]. CM updated BS RN, Ava. CM will cont to follow. Care Management Note Report : Ninoska Cuellar, Rn-Cheesemaker Helper Ed - 03/28/18 14:21:[address] Jones this am and he tells CM that pt is ready for discharge from his standpoint and that ID has a plan in place for IV abx. PT does have a PICC in place. Recieved VM from [facility] with [facility] [phone] stating they are interested in pt. CM went to BS to speak with pt to discuss bed offers. CM presented bed offers and pt tells CM that she really doesn't want to go to another facility. Pt tells CM that she only wants to go to [facility], as she has been there in the past. [facility] had not make bed offer at this [...] updates, as well as faxed updates f [phone]. She states they will reevaluate now, knowing [...] pt at this time due to the $9915-9778 IV rocephin cost through 05/04/[address] Diaz orders. Cm to follow for ongoing d/c planning/needs. Stew Porras, RN - 03/27/18 16:25:12 blayne from [facility] ([phone]) called to make bed offer. bed offers will be presented to pt 03/28. [phone] Stew Porras, RN - 03/27/18 15:00:29 spoke to ID who states pt maybe ready for dc as early as 03/28. id and attending PA are recommending SNF. spoke with pt and her dtr, jazmine and informed them of suggestion from drs to dc to snf for iv abx. pt and dtr in agreement and referrlas made via [facility] to the following counties.... [place]. Stew Porras, RN - 03/27/18 10:34:34 [id number] + for BROCK CT consulted and per ID, infection must clear prior to any ant surgical intervention Currnelty on rocephin iv w/bld cx pending Documentation Status Complete : Yes Ninoska Cuellar, Rn-Cheesemaker Helper Ed - 03/28/2018 14:27 EST documented in this encounter Plan of Treatment Not on file documented as of this encounter Visit Diagnoses Not on filedocumented in this encounter
--- OUTSIDE RECORDS SUMMARY | 2024-12-21 08:57 | XMS_ITS | Encounter Summary ---
Author Organization [employer] ([place], [place], [place], [place], [place]) Address [address] [place] [address] Care Team Providers Care Welder Tech Name Role Phone Unavailable Primary Care Provider Unavailabl e Encounter Details Date Type Department Care Team (Late st Contact Info) Description 03/27/2018 Transcribed Document [facility] [place] Family Medicine [address] [place] [address] ProviderZion MD [address] [place] [address] Social History Tobacco Use Types [...] - Historical ProviderMD - 03/27/2018 10:33 AM HOSE MENDER Care Management Assessment/Plan Entered On: 03/27/2018 10:34 [...] Patient History Note Report : DEEPA GALDAMEZ, Supervisor Coffee - 03/26/18 17:47:16 Talked w/ this 57 yr old W F transferred here from [facility] w/ bradycardia, positive blood cultures/strep B sepsis bactremia. PMH includes: bladder cancer, CAD s/p CABG, MVR, PPM plcmt (for which pt has had no F/U), pancreatitis, , COPD, DM, HTN, HLD, depression and anxiety. Pt underwent BROCK today due to concern for possible infected pacemaker (report not in yet). She is currently on 2gm IV rocephin, which [facility] says she will need until 04/20/18. Pt lives w/ her estranged spouse at [facility] address, claims she is indep w/ all [...]
--- OUTSIDE RECORDS SUMMARY | 2024-12-21 08:57 | XMS_ITS | Clinical Summary ---
Author Organization [employer] ([place], [place], [place], [place], [place]) Address [address] [place] [address] Care Team Providers Care Care Team Assistant Name Role Phone Unavailable Primary Care [...]
--- OUTSIDE RECORDS SUMMARY | 2024-12-21 08:57 | XMS_ITS | Encounter Summary ---
Author Organization [employer] ([place], [place], [place], [place], [place]) Address [address] [place] [address] Care Team Providers Care Cardiac Exercise Physiologist Name Role Phone Unavailable Primary Care Provider Unavailabl e Encounter Details Date Type Department Care Team (Late st Contact Info) Description 03/27/2018 Transcribed Document [facility] [place] Medicine [facility] [place] [address] ProviderZion MD [address] [place] [phone] Social History Tobacco Use Types Packs/Day Years Used Date Smoking Tobacco: Never Assessed Comments Unknown Sex and Gender Information Value Date Recorded Sex Assigned at Not on file Legal Sex Female 4:39 PM CDT Gender Identity Not on file Sexual Orientation Not on file documented as of this encounter Miscellaneous Notes * Cerner Conversion Note - Zion ProviderMD - 03/27/2018 10:05 AM INSPECTOR BALANCE TRUING Patient: ETHAN LOREDO Age: 57 Years Sex: [...]
--- OUTSIDE RECORDS SUMMARY | 2024-12-21 08:57 | XMS_ITS | Data Portability ---
Author Organization [facility] Address [address] [place] [address] Assessment Encounter Date Assessment Date Assessment LastModified [...] recorded. Lab drug screen, urine 2024 025 [facility], [address] [facility], [place], [address], 5 18:12:43 TSH + free T4, serum 2024 025 [facility], [address], [place], [place], [address], 5 14:15:06 cobalamin and folate panel, serum 2024 025 [facility], [address], [place], [place], [address], 5 14:15:09 CBC w/ auto diff 2024 025 [facility], [address], [place], [place], [address], 5 09:56:34 CMP, serum or plasma 2024 025 [facility], [address], [place], [place], [address], 5 14:15:07 HbA1c (hemoglobin A1c), blood 2024 025 [facility], [address], [place], [place], [address], 5 14:15:09 lipid panel, serum 2024 025 [facility], [address], [place], [place], [address], 5 14:15:08 TSH + free T4, serum 2024 025 [facility], [address], [place], [place], [address], 5 17:07:34 CMP, serum or plasma 2024 025 [facility], [address], [place], [place], [address], 5 17:07:35 CBC w/ auto diff 2024 025 [facility], [address], [place], [place], [address], 5 17:07:34 BNP (B-type natriuretic peptide), serum or plasma 2024 025 [facility], [address], [place], [place], [address], 5 17:07:36 Referral wound care referral - nurse to start wound care on stage 1 to buttocks-pt is already in care with home health 2024 025 [facility], [address] [place] [address], [address], 08:26:07 Procedures None recorded. Surgeries None recorded. Imaging XR, chest, 2 view 2024 025 [facility] (X-Ray), [address], [place], [address], 5 14:20:52 Medication Orders Miralax 17 gram/dose oral powder 2024 025 [facility], [address] [place] [address] 27 S, [place], [id number], 5 17:15:19 alprazolam 0.5 mg tablet 2024 025 [facility], [address] [place] [address] S, [place], [id number], 5 12:00:52 fluconazole 100 mg tablet 2024 025 [facility], [address] [place] [address], [address], 5 05:01:51 nystatin 100,000 unit/gram topical powder 2024 025 [facility], [address] [place] [address], [address], 5 14:43:23 alprazolam 0.5 mg tablet 2024 025 [facility], [address] [place] [address] 27 S, [place], [id number], 5 14:43:24 penicillin V potassium 250 mg tablet 2024 025 [facility], [address] [place] [address] 27 S, [place], [id number], 14:14:33 Patient TargetsNo targets recorded. Patient Instructions Encounter Date Encounter Id Patient Instructions Last Modified By Organization Details Last Modified Time 08/11/2024 [id number] body mass index: care instructions rebel Not [...] Order ing Provi oscar: Elisha Beckham n SENIOR COMMUNICATIONS SPECIALIST Not Available [address] , [place], [address], 03/27/2024 17:28:40 03/27/19 25 03/27/2024 CBC W/AUT O DIFFE RENTI AL white blood cell 8.3 10e3/ uL 4.5-13 .0 normal Not Available [address] [place], [place], [address], 03/27/2024 17:28:40 03/27/19 25 03/27/2024 CBC W/AUT O DIFFE RENTI AL red blood cell 3.06 10e6/ uL 3.80-5 .10 low Not Available [place] [address], [place], [address], 03/27/2024 17:28:40 03/27/19 25 03/27/2024 CBC W/AUT O DIFFE RENTI AL hemoglobin 9.0 g/dL 11.5-1 5.3 low Not Available [address] , [place], [address], 03/27/2024 17:28:40 03/27/19 25 03/27/2024 CBC W/AUT O DIFFE RENTI AL hematocrit 29.5 % 34.0-4 6.0 low Not Available [address] [place], [place], [address], 03/27/2024 17:28:40 03/27/19 25 03/27/2024 CBC W/AUT O DIFFE RENTI AL mean cell volume 96 fL 78.0-9 8.0 normal Not Available [address] [place], [place], [address], 03/27/2024 17:28:40 03/27/19 25 03/27/2024 CBC W/AUT O DIFFE RENTI AL mean cell HGB 29.4 pg 25.0-3 5.0 normal Not Available [address] , [place], [address], 03/27/2024 17:28:40 03/27/19 25 03/27/2024 CBC W/AUT O DIFFE RENTI AL mean cell HGB concentratio n 30.5 g/dL 31.0-3 6.0 low Not Available [address] [place], [place], [address], 03/27/2024 17:28:40 03/27/19 25 03/27/2024 CBC W/AUT O DIFFE RENTI AL red cell distribution width 18.6 % 11.0-1 5.0 high Not Available [address] [place], [place], [address], 03/27/2024 17:28:40 03/27/19 25 03/27/2024 CBC W/AUT O DIFFE RENTI AL platelet count 316 10e3/ uL 150-40 0 normal Not Available [address] [place], [place], [address], 03/27/2024 17:28:40 03/27/19 25 03/27/2024 CBC W/AUT O DIFFE RENTI AL immature granulocyte % 2 0-1 high Not Available [address] , [place], [address], 03/27/2024 17:28:40 03/27/19 25 03/27/2024 CBC W/AUT O DIFFE RENTI AL neutrophil % 71 % 35-75 normal Not Available [address] , [place], [address], 03/27/2024 17:28:40 03/27/19 25 03/27/2024 CBC W/AUT O DIFFE RENTI AL lymphocyte % 19 % 10-50 normal Not Available [address] , [place], [address], 03/27/2024 17:28:40 03/27/19 25 03/27/2024 CBC W/AUT O DIFFE RENTI AL monocyte % 5 % 0-15 normal Not Available [address] , [place], [address], 03/27/2024 17:28:40 03/27/19 25 03/27/2024 CBC W/AUT O DIFFE RENTI AL eosinophil % 2 % 0-5 normal Not Available [address] , [place], [address], 03/27/2024 17:28:40 03/27/19 25 03/27/2024 CBC W/AUT O DIFFE RENTI AL basophil % 1 % 0-5 normal Not Available [address] [place], [place], [address], 03/27/2024 17:28:40 03/27/19 25 03/27/2024 CBC W/AUT O DIFFE RENTI AL immature granulocyte # 0.13 x1000 /uL 0-0.05 high Not Available [address] [place], [place], [address], 03/27/2024 17:28:40 03/27/19 25 03/27/2024 CBC W/AUT O DIFFE RENTI AL neutrophil # 5.92 x1000 /uL 1.50-8 .00 normal Not Available [address] [place], [place], [address], 03/27/2024 17:28:40 03/27/19 25 03/27/2024 CBC W/AUT O DIFFE RENTI AL lymphocyte # 1.55 x1000 /uL 1.20-5 .20 normal Not Available [address] [place], [place], [address], 03/27/2024 17:28:40 03/27/19 25 03/27/2024 CBC W/AUT O DIFFE RENTI AL monocyte # 0.45 x1000 /uL 0.40-0 .90 normal Not Available [address] [place], [place], [address], 03/27/2024 17:28:40 03/27/19 25 03/27/2024 CBC W/AUT O DIFFE RENTI AL eosinophil # 0.18 x1000 /uL 0.00-0 .50 normal Not Available [address] [place], [place], [address], 03/27/2024 17:28:40 03/27/19 25 03/27/2024 CBC W/AUT O DIFFE RENTI AL basophil # 0.07 x1000 /uL 0.00-0 .30 normal Not Available [address] [place], [place], [address], 03/27/2024 17:28:40 03/27/19 25 03/27/2024 CBC W/AUT O DIFFE RENTI AL NRBC automated 0.0 /100_ WBC Not Available [address] [place], [place], [address], 03/27/2024 17:28:40 03/27/19 25 03/27/2024 CBC W/AUT O DIFFE KEELEY AL performing lab see note - [address] [facility] [address] Not Available [address] , [place], [address], 03/27/2024 17:28:40 03/27/19 25 03/27/2024 COMP METAB OLIC PANEL note See Note Order ing Provi oscar: Eugon da Fryma n SENIOR COMMUNICATIONS SPECIALIST Not Available [address] , [place], [address], 03/27/2024 17:32:51 03/27/19 25 03/27/2024 COMP METAB OLIC PANEL sodium 137 mmol/ L 136-14 5 normal Not Available [address] , [place], [address], 03/27/2024 17:32:51 03/27/19 25 03/27/2024 COMP METAB OLIC PANEL potassium 5.0 mmol/ L 3.5-5. 1 normal Not Available [address] , [place], [address], 03/27/2024 17:32:51 03/27/19 25 03/27/2024 COMP METAB OLIC PANEL chloride 103 mmol/ L 98-107 normal Not Available [address] , [place], [address], 03/27/2024 17:32:51 03/27/19 25 03/27/2024 COMP METAB OLIC PANEL carbon dioxide 24 mmol/ L 24-33 normal Not Available [address] [place], [address], 03/27/2024 17:32:51 03/27/19 25 03/27/2024 COMP METAB OLIC PANEL anion gap 15.0 mmol/ L 10-20 normal Not Available [address] , [place], [address], 03/27/2024 17:32:51 03/27/19 25 03/27/2024 COMP METAB OLIC PANEL glucose 148 mg/dL 70-99 high Not Available [address] [place], [address], 03/27/2024 17:32:51 03/27/19 25 03/27/2024 COMP METAB OLIC PANEL blood urea nitrogen 61 mg/dL 7-18 high Not Available [address] [place], [address], 03/27/2024 17:32:51 03/27/19 25 03/27/2024 COMP METAB OLIC PANEL creatinine 2.72 mg/dL 0.55-1 .02 high Not Available [address] , [place], [address], 03/27/2024 17:32:51 03/27/19 25 03/27/2024 COMP METAB [...] care of your patie nt. Not Available [address] , [place], [address], 03/27/2024 17:32:51 03/27/19 25 03/27/2024 COMP METAB OLIC PANEL BUN/creatini ne ratio 22 12-20 high Not Available [address] [place], [place], [address], 03/27/2024 17:32:51 03/27/19 25 03/27/2024 COMP METAB OLIC PANEL total protein 6.8 g/dL 6.4-8. 2 normal Not Available [address] [place], [place], [address], 03/27/2024 17:32:51 03/27/19 25 03/27/2024 COMP METAB OLIC PANEL albumin 3.3 g/dL 3.4-5. 0 low Not Available [address] [place], [address], 03/27/2024 17:32:51 03/27/19 25 03/27/2024 COMP METAB OLIC PANEL globulin 3.5 g/dL 1.5-4. 0 normal Not Available [address] [place], [address], 03/27/2024 17:32:51 03/27/19 25 03/27/2024 COMP METAB OLIC PANEL albumin/glob ulin ratio 0.9 0.5-2. 0 normal Not Available [address] [place], [address], 03/27/2024 17:32:51 03/27/19 25 03/27/2024 COMP METAB OLIC PANEL calcium 9.2 mg/dL 8.5-10 .1 normal Not Available [address] [place], [address], 03/27/2024 17:32:51 03/27/19 25 03/27/2024 COMP METAB OLIC PANEL osmolality serum calculated 293 mOsm/ kg 272-28 8 high Not Available [address] [place], [address], 03/27/2024 17:32:51 03/27/19 25 03/27/2024 COMP METAB OLIC PANEL bilirubin total 0.4 mg/dL 0.2-1. 0 normal Use of this assay is not recom godwin d for patie nts under going treat ment with Eltro mbopa g due to the poten tial for false ly eleva anthony resul ts. Not Available [address] [place], [address], 03/27/2024 17:32:51 03/27/19 25 03/27/2024 COMP METAB OLIC PANEL SGOT/AST 14 U/L 15-37 low Not Available [address] [place], [address], 03/27/2024 17:32:51 03/27/19 25 03/27/2024 COMP METAB OLIC PANEL SGPT/ALT 15 U/L 14-59 normal Not Available [address], [place], [address], 03/27/2024 17:32:51 03/27/19 25 03/27/2024 COMP METAB OLIC PANEL alkaline phosphatase total 93 U/L 46-116 normal Not Available [address] , [place], [address], 03/27/2024 17:32:51 03/27/19 25 03/27/2024 COMP METAB OLIC PANEL performing lab see note [facility] [address] [facility] [address] Not Available [address] , [place], [address], 03/27/2024 17:32:51 03/27/19 25 03/27/2024 MAGNE SIUM note See Note Order ing Provi oscar: Elisha Santosa n SENIOR COMMUNICATIONS SPECIALIST Not Available [address] [place], [place], [address], 03/27/2024 17:32:52 03/27/19 25 03/27/2024 MAGNE SIUM magnesium 2.3 mg/dL 1.8-2. 4 normal Not Available [address] , [place], [address], 03/27/2024 17:32:52 03/27/19 25 03/27/2024 MAGNE SIUM performing lab see note ML - [facility] [address] [facility] [address] Not Available [address] , [place], [address], 03/27/2024 17:32:52 04/16/19 25 04/15/2024 TSH+F REE T4 TSH 12.100 uIU/m L 0.450- 4.500 above high normal Not Available [facility] ([facility]) [address] [facility], [place], [address], 04/15/2024 17:07:34 04/16/19 25 04/15/2024 TSH+F REE T4 T4,free(dire ct) 1.14 NG/dL 0.82-1 .77 normal Not Available [facility] ([facility]) [address] [place], [address], 04/15/2024 17:07:34 04/16/19 25 04/15/2024 CBC WITH DIFFE RENTI AL/PL ATELE T WBC 7.4 x10e3 /uL 3.4-10 .8 normal Not Available [facility] ([facility]) [address] [place], [address], 04/15/2024 17:07:34 04/16/19 25 04/15/2024 CBC WITH DIFFE RENTI AL/PL ATELE T RBC 3.02 x10e6 /uL 3.77-5 .28 below low normal Not Available [facility] ([facility]) [address] [place], [address], 04/15/2024 17:07:34 04/16/19 25 04/15/2024 CBC WITH DIFFE RENTI AL/PL ATELE T hemoglobin 8.6 g/dL 11.1-1 5.9 below low normal Not Available [facility] ([facility]) [address] [place], [address], 04/15/2024 17:07:34 04/16/19 25 04/15/2024 CBC WITH DIFFE RENTI AL/PL ATELE T hematocrit 28.6 % 34.0-4 6.6 below low normal Not Available [facility] ([facility]) [address] [place], [address], 04/15/2024 17:07:34 04/16/19 25 04/15/2024 CBC WITH DIFFE RENTI AL/PL ATELE T MCV 95 fL 79-97 normal Not Available [facility] ([facility]) [address] [facility], [place], [address], 04/15/2024 17:07:34 04/16/19 25 04/15/2024 CBC WITH DIFFE RENTI AL/PL ATELE T MCH 28.5 pg 26.6-3 3.0 normal Not Available [facility] ([facility]) [address] [facility], [place], [address], 04/15/2024 17:07:34 04/16/19 25 04/15/2024 CBC WITH DIFFE RENTI AL/PL ATELE T MCHC 30.1 g/dL 31.5-3 5.7 below low normal Not Available [facility] ([facility]) [address] [facility], [place], [address], 04/15/2024 17:07:34 04/16/19 25 04/15/2024 CBC WITH DIFFE RENTI AL/PL ATELE T RDW 16.1 % 11.7-1 5.4 above high normal Not Available [facility] ([facility]) [address] [facility], [place], [address], 04/15/2024 17:07:34 04/16/19 25 04/15/2024 CBC WITH DIFFE RENTI AL/PL ATELE T platelets 248 x10e3 /uL 150-45 0 normal Not Available [facility] ([facility]) [address] [place], [address], 04/15/2024 17:07:34 04/16/19 25 04/15/2024 CBC WITH DIFFE RENTI AL/PL ATELE T neutrophils 72 % not estab. normal Not Available [facility] ([facility]) [address] [place], [address], 04/15/2024 17:07:34 04/16/19 25 04/15/2024 CBC WITH DIFFE RENTI AL/PL ATELE T lymphs 16 % not estab. normal Not Available [facility] ([facility]) [address] [place], [address], 04/15/2024 17:07:34 04/16/19 25 04/15/2024 CBC WITH DIFFE RENTI AL/PL ATELE T monocytes 7 % not estab. normal Not Available [facility] ([facility]) [address] [facility], [place], [address], 04/15/2024 17:07:34 04/16/19 25 04/15/2024 CBC WITH DIFFE RENTI AL/PL ATELE T eos 4 % not estab. normal Not Available [facility] ([facility]) [address] [facility], [place], [address], 04/15/2024 17:07:34 04/16/19 25 04/15/2024 CBC WITH DIFFE RENTI AL/PL ATELE T basos 1 % not estab. normal Not Available [facility] ([facility]) [address] [facility], [place], [address], 04/15/2024 17:07:34 04/16/19 25 04/15/2024 CBC WITH DIFFE RENTI AL/PL ATELE T immature cells PET SITTER Not Available [facility] ([facility]) [address] [place], [address], 04/15/2024 17:07:34 04/16/19 25 04/15/2024 CBC WITH DIFFE RENTI AL/PL ATELE T neutrophils (absolute) 5.4 x10e3 /uL 1.4-7. 0 normal Not Available [facility] ([facility]) [address] [place], [address], 04/15/2024 17:07:34 04/16/19 25 04/15/2024 CBC WITH DIFFE RENTI AL/PL ATELE T lymphs (absolute) 1.2 x10e3 /uL 0.7-3. 1 normal Not Available [facility] ([facility]) [address] [place], [address], 04/15/2024 17:07:34 04/16/19 25 04/15/2024 CBC WITH DIFFE RENTI AL/PL ATELE T monocytes(ab solute) 0.5 x10e3 /uL 0.1-0. 9 normal Not Available [facility] ([facility]) [address] [facility], [place], [address], 04/15/2024 17:07:34 04/16/19 25 04/15/2024 CBC WITH DIFFE RENTI AL/PL ATELE T eos (absolute) 0.3 x10e3 /uL 0.0-0. 4 normal Not Available [facility] ([facility]) [address] [facility], [place], [address], 04/15/2024 17:07:34 04/16/19 25 04/15/2024 CBC WITH DIFFE RENTI AL/PL ATELE T baso (absolute) 0.1 x10e3 /uL 0.0-0. 2 normal Not Available [facility] ([facility]) [address] [facility], [place], [address], 04/15/2024 17:07:34 04/16/19 25 04/15/2024 CBC WITH DIFFE RENTI AL/PL ATELE T immature granulocytes 0 % not estab. Not Available [facility] ([facility]) [address] [place], [address], 04/15/2024 17:07:34 04/16/19 25 04/15/2024 CBC WITH DIFFE RENTI AL/PL ATELE T immature grans (abs) 0.0 x10e3 /uL 0.0-0. 1 Not Available [facility] ([facility]) [address] [facility], [place], [address], 04/15/2024 17:07:34 04/16/19 25 04/15/2024 CBC WITH DIFFE RENTI AL/PL ATELE T NRBC PET SITTER Not Available [facility] ([facility]) [address] [facility], [place], [address], 04/15/2024 17:07:34 04/16/19 25 04/15/2024 CBC WITH DIFFE KEELEY AL/PARTHA Gomez hematology comments: PET SITTER Not Available [facility] ([facility]) [address] [facility], [place], [address], 04/15/2024 17:07:34 04/16/19 25 04/15/2024 COMP. METAB OLIC PANEL (14) glucose 111 mg/dL 70-99 above high normal Not Available [facility] ([facility]) [address] [facility] [place], [address], 04/15/2024 17:07:35 04/16/19 25 04/15/2024 COMP. METAB OLIC PANEL (14) BUN 41 mg/dL 8-27 above high normal Not Available [facility] ([facility]) [address] [facility], [place], [address], 04/15/2024 17:07:35 04/16/19 25 04/15/2024 COMP. METAB OLIC PANEL (14) creatinine 2.15 mg/dL 0.57-1 .00 above high normal Not Available [facility] ([facility]) [address] [facility], [place], [address], 04/15/2024 17:07:35 04/16/19 25 04/15/2024 COMP. METAB OLIC PANEL (14) eGFR 26 mL/mi n/1.7 3 >59 below low normal Not Available [facility] ([facility]) [address] [facility] [place], [address], 04/15/2024 17:07:35 04/16/19 25 04/15/2024 COMP. METAB OLIC PANEL (14) BUN/creatini ne ratio 19 12-28 normal Not Available [facility] ([facility]) [address] [facility] [place], [address], 04/15/2024 17:07:35 04/16/19 25 04/15/2024 COMP. METAB OLIC PANEL (14) sodium 140 mmol/ L 134-14 4 normal Not Available [facility] ([facility]) [address] [place], [address], 04/15/2024 17:07:35 04/16/19 25 04/15/2024 COMP. METAB OLIC PANEL (14) potassium 5.1 mmol/ L 3.5-5. 2 normal Not Available [facility] ([facility] [facility]) [address] [facility] [place], [address], 04/15/2024 17:07:35 04/16/19 25 04/15/2024 COMP. METAB OLIC PANEL (14) chloride 110 mmol/ L 96-106 above high normal Not Available [facility] ([facility]) [address] [place], [address], 04/15/2024 17:07:35 04/16/19 25 04/15/2024 COMP. METAB OLIC PANEL (14) carbon dioxide, total TNP mmol/ L Test not perfo rmed. Due to a lack of repro ducib ility with this patie nt sampl e, a valid resul t could not be obtai josé miguel. Not Available [facility] ([facility]) [address] [place], [address], 04/15/2024 17:07:35 04/16/19 25 04/15/2024 COMP. METAB OLIC PANEL (14) calcium 8.6 mg/dL 8.7-10 .3 below low normal Not Available [facility] ([facility]) [address] [place], [address], 04/15/2024 17:07:35 04/16/19 25 04/15/2024 COMP. METAB OLIC PANEL (14) protein, total 6.1 g/dL 6.0-8. 5 normal Not Available [facility] ([facility]) [address] [place], [address], 04/15/2024 17:07:35 04/16/19 25 04/15/2024 COMP. METAB OLIC PANEL (14) albumin 3.6 g/dL 3.9-4. 9 below low normal Not Available [facility] ([facility]) [address] [facility] [place], [address], 04/15/2024 17:07:35 04/16/19 25 04/15/2024 COMP. METAB OLIC PANEL (14) globulin, total 2.5 g/dL 1.5-4. 5 Not Available [facility] ([facility]) [address] [facility] [place], [address], 04/15/2024 17:07:35 04/16/19 25 04/15/2024 COMP. METAB OLIC PANEL (14) bilirubin, total 0.2 mg/dL 0.0-1. 2 normal Not Available [facility] ([facility]) [address] [facility] [place], [address], 04/15/2024 17:07:35 04/16/19 25 04/15/2024 COMP. METAB OLIC PANEL (14) alkaline phosphatase 148 IU/L 44-121 above high normal Not Available [facility] ([facility]) [address] [facility] [place], [address], 04/15/2024 17:07:35 04/16/19 25 04/15/2024 COMP. METAB OLIC PANEL (14) AST (SGOT) 27 IU/L 0-40 normal Not Available [facility] ([facility]) [address] [facility] [place], [address], 04/15/2024 17:07:35 04/16/19 25 04/15/2024 COMP. METAB OLIC PANEL (14) ALT (SGPT) 23 IU/L 0-32 normal Not Available [facility] ([facility]) [address] [facility] [place] [place], [address], 04/15/2024 17:07:35 04/16/19 25 04/15/2024 B-TYP E NATRI URETI C PEPTI DE B-type natriuretic peptide 235.2 pg/mL 0.0-10 0.0 above high normal Sieme ns [facility] metho dolog y Not Available [facility] ([facility]) [address] [place], [address], 04/15/2024 17:07:36 04/16/1904/15/2024 PLEAS E NOTE please note Commen t The date and/o r time of colle ction was not indic ated on the requi sitio n as requi red by state and manuel al law. The date of recei pt of the speci men was used as the colle ction date if not suppl ied. Not Available [facility] ([facility]) [address] [place], [address], 04/15/2024 17:07:36 06/19/1906/19/2024 TSH+F REE T4 TSH 5.960 uIU/m L 0.450- 4.500 above high normal Not Available [facility] ([facility]) [address] [place], [address], 06/19/2024 14:15:06 06/19/1906/19/2024 TSH+F REE T4 T4,free(dire ct) 1.28 NG/dL 0.82-1 .77 normal Not Available [facility] ([facility]) [address] [place], [address], 06/19/2024 14:15:06 06/19/19 25 06/19/2024 CBC WITH DIFFE RENTI AL/PL ATELE T WBC 7.5 x10e3 /uL 3.4-10 .8 normal Not Available [facility] ([facility]) [address] [place], [address], 06/19/2024 14:15:07 06/19/19 25 06/19/2024 CBC WITH DIFFE RENTI AL/PL ATELE T RBC 2.98 x10e6 /uL 3.77-5 .28 below low normal Not Available [facility] ([facility]) [address] [place], [address], 06/19/2024 14:15:07 06/19/19 25 06/19/2024 CBC WITH DIFFE RENTI AL/PL ATELE T hemoglobin 7.3 g/dL 11.1-1 5.9 panic low Clien t Reque sted Flag Not Available [facility] ([facility]) [address] [place], [address], 06/19/2024 14:15:07 06/19/19 25 06/19/2024 CBC WITH DIFFE RENTI AL/PL ATELE T hematocrit 25.6 % 34.0-4 6.6 below low normal Not Available [facility] ([facility]) [address] [place], [address], 06/19/2024 14:15:07 06/19/19 25 06/19/2024 CBC WITH DIFFE RENTI AL/PL ATELE T MCV 86 fL 79-97 normal Not Available [facility] ([facility]) [address] [place], [address], 06/19/2024 14:15:07 06/19/19 25 06/19/2024 CBC WITH DIFFE RENTI AL/PL ATELE T MCH 24.5 pg 26.6-3 3.0 below low normal Not Available [facility] ([facility]) [address] [place], [address], 06/19/2024 14:15:07 06/19/19 25 06/19/2024 CBC WITH DIFFE RENTI AL/PL ATELE T MCHC 28.5 g/dL 31.5-3 5.7 below low normal Not Available [facility] ([facility]) [address] [place], [address], 06/19/2024 14:15:06/19/19 25 06/19/2024 CBC WITH DIFFE RENTI AL/PL ATELE T RDW 16.5 % 11.7-1 5.4 above high normal Not Available [facility] ([facility]) [address] [facility], [place], [address], 06/19/2024 14:15:06/19/19 25 06/19/2024 CBC WITH DIFFE RENTI AL/PL ATELE T platelets 332 x10e3 /uL 150-45 0 normal Not Available [facility] ([facility]) [address] [facility], [place], [address], 06/19/2024 14:15:07 06/19/19 25 06/19/2024 CBC WITH DIFFE RENTI AL/PL ATELE T neutrophils 70 % not estab. normal Not Available [facility] ([facility]) [address] [facility], [place], [address], 06/19/2024 14:15:06/19/19 25 06/19/2024 CBC WITH DIFFE RENTI AL/PL ATELE T lymphs 19 % not estab. normal Not Available [facility] ([facility]) [address] [facility], [place], [address], 06/19/2024 14:15:06/19/19 25 06/19/2024 CBC WITH DIFFE RENTI AL/PL ATELE T monocytes 6 % not estab. normal Not Available [facility] ([facility]) [address] [facility], [place], [address], 06/19/2024 14:15:06/19/19 25 06/19/2024 CBC WITH DIFFE RENTI AL/PL ATELE T eos 4 % not estab. normal Not Available [facility] ([facility]) [address] [place], [address], 06/19/2024 14:15:07 06/19/19 25 06/19/2024 CBC WITH DIFFE RENTI AL/PL ATELE T basos 1 % not estab. normal Not Available [facility] ([facility]) [address] [place], [address], 06/19/2024 14:15:07 06/19/19 25 06/19/2024 CBC WITH DIFFE RENTI AL/PL ATELE T immature cells PET SITTER Not Available [facility] ([facility]) [address] [place], [address], 06/19/2024 14:15:07 06/19/19 25 06/19/2024 CBC WITH DIFFE RENTI AL/PL ATELE T neutrophils (absolute) 5.3 x10e3 /uL 1.4-7. 0 normal Not Available [facility] ([facility]) [address] [place], [address], 06/19/2024 14:15:07 06/19/19 25 06/19/2024 CBC WITH DIFFE RENTI AL/PL ATELE T lymphs (absolute) 1.4 x10e3 /uL 0.7-3. 1 normal Not Available [facility] ([facility]) [address] [place], [address], 06/19/2024 14:15:07 06/19/19 25 06/19/2024 CBC WITH DIFFE RENTI AL/PL ATELE T monocytes(ab solute) 0.5 x10e3 /uL 0.1-0. 9 normal Not Available [facility] ([facility]) [address] [place], [address], 06/19/2024 14:15:07 06/19/19 25 06/19/2024 CBC WITH DIFFE RENTI AL/PL ATELE T eos (absolute) 0.3 x10e3 /uL 0.0-0. 4 normal Not Available [facility] ([facility]) [address] [place], [address], 06/19/2024 14:15:07 06/19/19 25 06/19/2024 CBC WITH DIFFE RENTI AL/PL ATELE T baso (absolute) 0.1 x10e3 /uL 0.0-0. 2 normal Not Available [facility] ([facility]) [address] [facility], [place], [address], 06/19/2024 14:15:07 06/19/19 25 06/19/2024 CBC WITH DIFFE RENTI AL/PL ATELE T immature granulocytes 0 % not estab. Not Available [facility] ([facility]) [address] [facility], [place], [address], 06/19/2024 14:15:07 06/19/19 25 06/19/2024 CBC WITH DIFFE RENTI AL/PL ATELE T immature grans (abs) 0.0 x10e3 /uL 0.0-0. 1 Not Available [facility] ([facility]) [address] [facility], [place], [address], 06/19/2024 14:15:07 06/19/19 25 06/19/2024 CBC WITH DIFFE RENTI AL/PL ATELE T NRBC PET SITTER Not Available [facility] ([facility]) [address] [facility], [place], [address], 06/19/2024 14:15:07 06/19/19 25 06/19/2024 CBC WITH DIFFE RENTI AL/PL ATELE T hematology comments: PET SITTER Not Available [facility] ([facility]) [address] [facility], [place], [address], 06/19/2024 14:15:07 06/19/19 25 06/19/2024 COMP. METAB OLIC PANEL (14) glucose 110 mg/dL 70-99 above high normal Not Available [facility] ([facility]) [address] [place], [address], 06/19/2024 14:15:07 06/19/19 25 06/19/2024 COMP. METAB OLIC PANEL (14) BUN 45 mg/dL 8-27 above high normal Not Available [facility] ([facility]) [address] [facility] [place], [address], 06/19/2024 14:15:07 06/19/19 25 06/19/2024 COMP. METAB OLIC PANEL (14) creatinine 2.01 mg/dL 0.57-1 .00 above high normal Not Available [facility] ([facility]) [address] [facility] [place], [address], 06/19/2024 14:15:07 06/19/19 25 06/19/2024 COMP. METAB OLIC PANEL (14) eGFR 28 mL/mi n/1.7 3 >59 below low normal Not Available [facility] ([facility]) [address] [facility] [place], [address], 06/19/2024 14:15:07 06/19/19 25 06/19/2024 COMP. METAB OLIC PANEL (14) BUN/creatini ne ratio 22 12-28 normal Not Available [facility] ([facility]) [address] [facility] [place], [address], 06/19/2024 14:15:07 06/19/19 25 06/19/2024 COMP. METAB OLIC PANEL (14) sodium 139 mmol/ L 134-14 4 normal Not Available [facility] ([facility]) [address] [place], [address], 06/19/2024 14:15:07 06/19/19 25 06/19/2024 COMP. METAB OLIC PANEL (14) potassium 5.1 mmol/ L 3.5-5. 2 normal Not Available [facility] ([facility]) [address] [place], [address], 06/19/2024 14:15:07 06/19/19 25 06/19/2024 COMP. METAB OLIC PANEL (14) chloride 113 mmol/ L 96-106 above high normal Not Available [facility] ([facility]) [address] [place], [address], 06/19/2024 14:15:06/19/19 25 06/19/2024 COMP. METAB OLIC [...] is very sensi tive. Not Available [facility] ([facility]) [address] [facility], [place], [address], 06/19/2024 14:15:06/19/19 25 06/19/2024 COMP. METAB OLIC PANEL (14) calcium 8.8 mg/dL 8.7-10 .3 normal Not Available [facility] ([facility]) [address] [place], [address], 06/19/2024 14:15:07 06/19/19 25 06/19/2024 COMP. METAB OLIC PANEL (14) protein, total 6.4 g/dL 6.0-8. 5 normal Not Available [facility] ([facility]) [address] [place], [address], 06/19/2024 14:15:07 06/19/19 25 06/19/2024 COMP. METAB OLIC PANEL (14) albumin 3.7 g/dL 3.9-4. 9 below low normal Not Available [facility] ([facility]) [address] [place], [address], 06/19/2024 14:15:07 06/19/19 25 06/19/2024 COMP. METAB OLIC PANEL (14) globulin, total 2.7 g/dL 1.5-4. 5 Not Available [facility] ([facility]) [address] [facility] [place], [address], 06/19/2024 14:15:07 06/19/19 25 06/19/2024 COMP. METAB OLIC PANEL (14) bilirubin, total <0.2 mg/dL 0.0-1. 2 Not Available [facility] ([facility]) [address] [facility] [place], [address], 06/19/2024 14:15:07 06/19/19 25 06/19/2024 COMP. METAB OLIC PANEL (14) alkaline phosphatase 131 IU/L 44-121 above high normal Not Available [facility] ([facility]) [address] [facility], [place], [address], 06/19/2024 14:15:07 06/19/19 25 06/19/2024 COMP. METAB OLIC PANEL (14) AST (SGOT) 10 IU/L 0-40 normal Not Available [facility] ([facility]) [address] [facility] [place], [address], 06/19/2024 14:15:07 06/19/19 25 06/19/2024 COMP. METAB OLIC PANEL (14) ALT (SGPT) 12 IU/L 0-32 normal Not Available [facility] ([facility]) [address] [facility] [place], [address], 06/19/2024 14:15:07 06/19/19 25 06/19/2024 LIPID PANEL cholesterol, total 119 mg/dL 100-19 9 normal Not Available [facility] ([facility]) [address] [facility] [place], [address], 06/19/2024 14:15:08 06/19/19 25 06/19/2024 LIPID PANEL triglyceride s 55 mg/dL 0-149 normal Not Available [facility] ([facility]) [address] [place], [address], 06/19/2024 14:15:08 06/19/19 25 06/19/2024 LIPID PANEL HDL cholesterol 36 mg/dL >39 below low normal Not Available [facility] ([facility]) [address] [facility] [place], [address], 06/19/2024 14:15:08 06/19/19 25 06/19/2024 LIPID PANEL VLDL cholesterol sangeetha 12 mg/dL 5-40 Not Available [facility] ([facility]) [address] [facility] [place], [address], 06/19/2024 14:15:06/19/19 25 06/19/2024 LIPID PANEL LDL chol calc ([facility]) 71 mg/dL 0-99 Not Available [facility] ([facility]) [address] [facility] [place], [address], 06/19/2024 14:15:08 06/19/19 25 06/19/2024 LIPID PANEL LDL calc comment: PET SITTER Not Available [facility] ([facility]) [address] [facility], [place], [address], 06/19/2024 14:15:06/19/19 25 06/19/2024 VITAM IN B12 AND FOLAT E vitamin B12 488 pg/mL 232-12 45 normal Not Available [facility] ([facility]) [address] [facility] [place], [address], 06/19/2024 14:15:06/19/19 25 06/19/2024 VITAM IN B12 AND FOLAT E folate (folic acid), serum 5.8 NG/mL >3.0 normal A serum folat e kurt ntrat ion of less than 3.1 ng/mL is consi dered to repre sent clini sangeetha defic iency . Not Available [facility] ([facility]) [address] [facility] [place], [address], 06/19/2024 14:15:09 06/19/1906/19/2024 HEMOG LOBIN A1C hemoglobin A1C 6.4 % 4.8-5. 6 above high normal Predi abete s: 5.7 - 6.4 Diabe jo ann: >6.4 Glyce galileo contr ol for adult s with diabe jo ann: <7.0 Not Available [facility] ([facility]) [address] [facility], [place], [address], 06/19/2024 14:15:09 08/12/19 25 08/11/2024 drug scree n, urine AMP negati ve Not Available [address], [address], 08/11/2024 14:56:09 08/12/19 25 08/11/2024 drug scree n, urine BAR negati ve Not Available [address], [address], 08/11/2024 14:56:09 08/12/19 25 08/11/2024 drug scree n, urine BUP negati ve Not Available [address], [address], 08/11/2024 14:56:09 08/12/19 25 08/11/2024 drug scree n, urine BZO negati ve Not Available [address], [address], 08/11/2024 14:56:09 08/12/19 25 08/11/2024 drug scree n, urine STACY negati ve Not Available [address], [address], 08/11/2024 14:56:09 08/12/19 25 08/11/2024 drug scree n, urine FTY negati ve Not Available [address], [address], 08/11/2024 14:56:09 08/12/19 25 08/11/2024 drug scree n, urine MDMA negati ve Not Available [address], [address], 08/11/2024 14:56:09 08/12/1908/11/2024 drug scree n, urine MET negati ve Not Available [address], [address], 08/11/2024 14:56:09 08/12/1908/11/2024 drug scree n, urine MOP negati ve Not Available [address], [address], 08/11/2024 14:56:09 08/12/19 25 08/11/2024 drug scree n, urine MTD negati ve Not Available [address], [address], 08/11/2024 14:56:09 08/12/1908/11/2024 drug scree n, urine OXY negati ve Not Available [address], [address], 08/11/2024 14:56:09 08/12/1908/11/2024 drug scree n, urine PCP negati ve Not Available [address], [address], 08/11/2024 14:56:09 08/12/1908/11/2024 drug scree n, urine TCA negati ve Not Available [address], [address], 08/11/2024 14:56:09 08/12/19 25 08/11/2024 drug scree n, urine THC positi ve Not Available [address], [place], [place], [address], 08/11/2024 14:56:09 03/05/19 25 03/05/2024 CT, abdom en + pelvi s, w/o contr ast No observ ation record ed. [facility] [address], [place], [address], 03/05/2024 15:21:51 03/05/19 25 03/05/2024 CT, chest , w/o contr ast No observ ation record ed. [place] [address], [place], [address], 03/05/2024 15:21:51 03/08/19 25 03/05/2024 elect rocar diogr am No observ ation record ed. [place] [address], [place], [address], 03/09/2024 08:21:13 03/15/19 25 03/15/2024 XR, chest , 2 view No observ ation record ed. [place] [address], [place], [address], 03/16/2024 10:06:59 03/15/19 25 03/15/2024 CT, angio gram, chest , w/ contr ast No observ ation record ed. [place] [address], [place], [address], 03/16/2024 10:06:24 03/15/19 25 03/15/2024 CT, angio gram, chest , w/ contr ast No observ ation record ed. [place] [address], [place], [address], 03/16/2024 10:05:58 03/16/19 25 03/15/2024 elect rocar diogr am No observ ation record ed. [facility] [address], [place], [place], [address], 03/16/2024 13:50:58 03/16/19 25 03/15/2024 elect rocar diogr am No observ ation record ed. [facility] [address], [place], [place], [address], 03/16/2024 13:50:44 03/17/19 25 03/17/2024 XR, chest , 2 view No observ ation record ed. [facility] [address], [place], [place], [address], 03/17/2024 13:18:34 03/17/19 25 03/16/2024 stres s echoc ardio gram with doppl er color flow (PROC ) No observ ation record ed. [facility] [address], [place], [place], [address], 03/17/2024 13:18:15 03/19/19 25 03/19/2024 XR, chest , 2 view No observ ation record ed. [facility] [address], [place], [place], [address], 03/19/2024 08:41:39 04/10/19 25 04/10/2024 XR, chest , 2 view No observ ation record ed. [facility] [address], [place], [address], 04/10/2024 16:14:04 04/17/19 25 04/16/2024 XR, chest , 2 view No observ ation record ed. [facility] (X-Ray) [address] [place], [address], 04/16/2024 14:20:52 04/18/19 25 04/16/2024 XR, chest , 2 view No observ ation record ed. [facility] [address], [place], [address], 04/17/2024 11:56:42 04/22/19 25 04/16/2024 elect rocar diogr am No observ ation record ed. [facility] [address], [place], [place], [address], 04/23/2024 08:20:46 04/23/19 25 04/21/2024 , [facility] ardio gram, trans esoph ageal No observ ation record ed. [facility] [address], [place], [place], [address], 04/23/2024 08:20:47 04/28/19 25 04/21/2024 elect rocar diogr am No observ ation record ed. [facility] [address], [place], [address], 04/27/2024 09:33:58 04/28/19 25 04/21/2024 elect rocar diogr am No observ ation record ed. [facility] [address], [place], [address], 04/27/2024 09:33:58 07/03/19 25 07/01/2024 LDCT, chest , for lung cance r scree aaliyah No observ ation record ed. [facility] [address], [place], [address], 07/03/2024 09:03:51 10/06/19 25 10/05/2024 elect rocar diogr am No observ ation record ed. [facility] [address], [place], [address], 10/06/2024 08:11:23 11/16/1911/15/2024 CT, abdom en + pelvi s, w/o contr ast No observ ation record ed. [facility] [address], [place], [address], 11/16/2024 08:37:43 11/16/1911/15/2024 XR, chest , 2 view No observ ation record ed. [facility] [address], [place], [place], [address], 11/16/2024 08:37:21 11/16/1911/15/2024 CT, abdom en + pelvi s, w/ contr ast No observ ation record ed. [facility] [address], [place], [address], 11/16/2024 08:36:56 11/17/1911/15/2024 elect rocar diogr am No observ ation record ed. [facility] [address], [place], [address], 11/16/2024 08:35:30 11/18/1911/16/2024 US, doppl er echoc ardio gram, w/ color flow No observ ation record ed. [facility] [address], [place], [address], 11/17/2024 13:01:52 Result Notes None recorded. 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 2015 Ivonne Jones APRN [address], [place], [address], [place] - [facility] 4 14:58:47 Disorder of bone 68298828 Active 2015 Crystal Julianne null, [place] - [facility] 6 09:30:30 History of cardiovascu lar disease 516244469 Active 2015 Ivonne Jones, SENIOR COMMUNICATIONS SPECIALIST [address], [place], [address], [place] - [facility] 4 14:59:00 Colostomy present 820250278 Completed 201509/03/2017 Dinorah Sharp null, [place] - [facility] 8 13:35:52 Type 2 diabetes mellitus 27310929 Active 2015 Ivonne Jones, SENIOR COMMUNICATIONS SPECIALIST [address], [place], [address], [place] - [facility] 4 14:58:43 Hyperlipide farooq 85909176 Active 2015 Ivonne Jones, SENIOR COMMUNICATIONS SPECIALIST [address], [place], [address], [place] - [facility] 4 14:58:53 History of hypertensio n 639608761 Active 2015 Ivonne Jones, SENIOR COMMUNICATIONS SPECIALIST [address], [place], [address], [place] [facility] 4 14:58:55 Hypothyroid ism 12541540 Active 2015 Ivonne Jones, SENIOR COMMUNICATIONS SPECIALIST [address], [place], [address], [place] [facility] 4 14:58:51 Neuropathy due to diabetes mellitus 221130442 Active 2015 Ivonne Jones, SENIOR COMMUNICATIONS SPECIALIST [address], [place], [address], [place] [facility] 4 14:58:46 Pancreatiti s 02083194 Active 2015 Crystal Julianne null, [place] - [facility] 6 09:32:11 Spasm of urinary bladder 641600784 Completed 201511/23/2015 Crystal Julianne null, [place] - [facility] 6 09:32:45 Insomnia 466581303 Active 2016 Daysivioleta daxa, CHONG [address], [place], [address], [place] - [facility] 4 14:58:50 Candidiasis 26613084 Active 2017 Vincent Amin MD [address], [place], [address], [place] - [facility] 8 15:37:13 Fatigue 02546871 Active 2017 Anne aguilar, [place] - [facility] 8 10:26:48 Urostomy present 484609250 Active 2017 Daysivioleta Jones, SENIOR COMMUNICATIONS SPECIALIST [address], [place], [address], [place] - [facility] 4 14:58:41 External hordeolum 9522700 Active 2017 Vincent Amin MD [address], [place], [address], [place] [facility] 8 12:11:25 Depressive disorder 84959370 Active 2023 Daysivioleta NESTOR mittalN [address], [place], [address], [place] - [facility] 4 14:59:02 Chronic obstructive pulmonary disease 15526228 Active 2024 Daysivioleta Jones APRN [address], [place], [address], [place] [facility] 5 15:11:34 Congestive heart failure 63732529 Active 2024 Daysivioleta NESTOR mittalN [address], [place], [address], [place] - [facility] 5 15:45:47 Blood group O Rh(D) positive 952185002 Active 2024 Daysivioleta NESTOR mittalN [address], [place], [address], [place] - [facility] 5 11:32:24 Problem [...] Name and Address Organization Details Recorded Time 75866 ibuprofen medicatio n Not available Not available Not available 11/18/20152014 5640 RxNorm Elly Stears null, [place] - [facility] 14:03:15 Medications Name Sig Start Date Stop Date Status Note LastModified by Organization Details LastModified Time Prescript ion - Renewal 07/11 completed [facility] Not Available Not Available Not Available Prescript ion - Clarifica tion 09/23 completed [facility] Not Available Not Available Not Available [...] Disconti nued on: 09/27/19 16 2:00PM;U ser: [facility]; Pharmacy Verified : 08/25/19 16 3:50PM Not [...] completed Not Available Not Available Not Available InvariumTouch Ultra Blue Test Strip TEST BLOOD SUGAR [...] Available Not Available Not Available Dexcom G7 Roller Inspector DIRECTED active Not Available Not Available No [...] Updated DateTime 5 154.94 cm 25.3 kg/m2 39910.3 8 g 62 /min 98 % 98 [...] Updated DateTime 5 154.94 cm 28.3 kg/m2 17527.8 6 g 120 /min 98 % 98 [...] 5 154.94 cm 18 /min 25.5 kg/m2 23588.9 7 g 70 /min 97 % 97 % 97.7 [degF] 104/62 mm[Hg] Elly Stears [place] - [facility] 5 13:44:39 Date Recorded Body height Body mass index (BMI) Body weight Heart rate Oxygen saturation Oxygen saturation in Arterial blood by Pulse oximetry Respiratory rate Pain severity - 0-10 verbal numeric rating [Score] - Reported Systolic And Diastolic Provider Name and Address Organization Details Last Updated DateTime 5 154.94 cm 26.5 kg/m2 31212.9 3 g 60 /min 98 % 98 % 18 /min 0 110/68 mm[Hg] Cara Andres [place] - [facility] 5 14:10:55 Date Recorded Body height Respiratory rate Body mass index (BMI) Body weight Body temperature Systolic And Diastolic Provider Name and Address Organization Details Last Updated DateTime 5 154.94 cm 20 /min 24.8 kg/m2 46710.6 g 97.8 [degF] 112/64 mm[Hg] Elly Stears [place] - [facility] 5 13:51:31 Social History Question Answer Notes LastModified by Organizat ion Details LastModified Time Tobacco Smoking Status Current Every Day Smoker Dariela aguilar [facility] 11/23/2015 09:34:05 Do You Have An [...] Type Of Diet Are You Following? REGULAR [email or web address] Information not available 10/29/2016 Which Illicit Or [...] Or The Highest Degree You Have Received? [id number] Information not available 02/26/2023 Have There Been [...] Do You Have A Medical Power Of Shellfish Sorter? No Information not available 02/26/2023 What Was The Date Of Your Most Recent Tobacco Screening? 03/02/2024 Information not available 03/02/2024 How Many Children Do You Have? 2 Information not available 02/26/2023 What Is Your Current Pack Years? [email or web address] ars Information not available 02/26/2023 Do You Use Protection Against STDs? Always Information not available 02/26/2023 What Is Your Relationship Status? Information not available 10/29/2016 Do You Use [...] Functional Status Question Answer Note LastModified by [employer] ion Details LastModified Time Do you use [...] able to care for yourself independently? Yes Information not available 10/29/2016 Do you have difficulty dressing, bathing, grooming, or toileting? No Information not available 02/26/2023 What is your exercise level? None Information not available 02/26/2023 Mental Status Question Answer Note LastModified by Organizat ion Details LastModified Time Do you feel stressed (tense, restless, nervous, or anxious, or unable to sleep at night)? [id number] Information not available 02/26/2023 Do you have [...] available 02/26/19 13:55:57 Medical History Condition Response Heart Problems Y Thyroid Problems Y Kidney or Bladder Problems Y GI Problems Y Depression Y Hypothyroidism Y Constipation Y Diabetes Y Anxiety Disorder Y Muscle, Joint, or Bone Problems Y Obesity Y Hyperlipidemia Y Hypercholesterolemia Y Heart Disease Y Neuropathy [...] conjugate PCV 13 7 completed Not Available [facility] 02/28/2019 03:54:53 Influenza, split virus, trivalent, preservative 4 completed Ivonne Jones, SENIOR COMMUNICATIONS SPECIALIST [address], [place], [address], [place] - [facility] 11/29/2023 13:27:24 Influenza, split virus, quadrivalent, preservative 8 completed Not Available [facility] 02/28/2019 03:55:20 Influenza, split virus, quadrivalent, preservative 9 completed Cara Andres null, [place] - [facility] 03/26/2023 10:50:48 Influenza, split virus, trivalent, PF 6 completed Cara Andres null, [place] - [facility] 03/26/2023 10:50:48 Td [...] quadrivalent, PF 2 completed Cara Andres null, [place] - [facility] 03/26/2023 10:50:49 Past Encounters Encounter ID Performer Location Encounter Start Date Encounter Closed Date Diagnosis/Indication Diagnosis SNOMED-CT Code Diagnosis ICD10 Code Diagnosis IMO Codes Diagnosis Note [id number] Anne Mott, CHONG [facility] [address] [place] [address] 11/23/2015 09:25:12 11/23/2015 13:25:24 Diabetes mellitus 76000779 E11.9 Acquired hypothyroidism 755479123 E03.9 Vitamin D deficiency 347 61863 E55.9 History of cardiovascular disease 504004832 Z86.79 History of hypertension 134054199 Z86.79 Neuropathy due to diabetes mellitus 910101475 E11.40 Hypothyroidism 23130276 E03.9 Hyperlipidemia 58200551 E78.5 [id number] Anne[address] Mott[address] [place] [address] 12/27/2015 10:43:37 12/27/2015 16:15:20 Anxiety 83822924 F41.9 Acquired hypothyroidism 829644053 E03.9 [id number] Annearturo Mott[address] [place] [address] 01/26/2016 11:16:47 01/26/2016 13:02:03 Neuropathy due to diabetes mellitus 084599058 E11.40 Renewal of prescription 834213889 Z76.0 Disorder of bone 3425721 3 M89.9 Anxiety 42374720 F41.9 Acquired hypothyroidism 035781980 E03.9 [id number] Annearturo Mott[address] [place] [address] 02/15/2016 16:20:52 02/15/2016 16:55:09 Candidiasis of skin 34027756 B37.2 [id number] Anneart[address] Mott[address] [place] [address] 02/27/2016 13:27:14 02/27/2016 14:33:44 Anxiety 71761024 F41.9 Type 2 jonathon betes mellitus 97990838 E11.9 Acquired hypothyroidism 086310422 E03.9 Candidiasis 58135821 B37 .9 under breast and vulvo perineal area is much better than last visit [id number] Anne Mooers[address] [place] [address] 03/29/2016 08:04:47 03/29/2016 09:47:03 Type 2 diabetes mellitus 01014263 E11.9 Hypothyroidism 72053911 E03.9 Neuropathy due to diabetes mellitus 776141833 E11.40 History of hypertension 702769166 Z86.79 Hyperlipidemia 29717395 E78.5 Anxiety 52258487 F41.9 Renewal of prescription 172408813 Z76.0 [id number] Anne Mooers[address] [place] [address] 04/19/2016 09:22:42 04/19/2016 11:19:36 Hypokalemia 08122182 E87.6 Insomnia 203830615 G47.0 0 [id number] Annearturo Mott[address] [place] [address] 04/26/2016 12:30:47 04/26/2016 13:50:41 Renewal of prescription 301320795 Z76.0 Anxiety 09744005 F41.9 Decreased renal function 95659648 R94.4 chronic, referral has been made to nephrology Hypothyroidism 60194831 E03.9 Type 2 jonathon betes mellitus 98489008 E11.9 History of cardiovascular disease 984745467 Z86.79 [id number] Annearturo Molina[address] [place] [address] 05/28/2016 12:40:29 05/28/2016 18:20:31 Anxiety 44622788 F41.9 7041295 Annearturo Mott[address] [place] [address] 07/26/2016 16:00:07 07/26/2016 17:15:20 Anxiety 46808786 F41.9 Body mass index 30+ - obesity 556009960 Z68.33 Nicotine dependence 5629 4008 F17.200 Neuropathy due to diabetes mellitus 710772561 E11.40 Open wound 281418459 S21 .90XD small opening noted wher drain tube was at bottom of sternotomy scar which is well healed [id number] Annearturo Mott[address] [place] [address] 08/28/2016 10:12:46 08/28/2016 10:49:11 Anxiety 30556714 F41.9 Insomnia 998418224 G47.0 0 Essential hypertension 96897962 I10 Hypothyroidism 61592317 E03.9 Hyperlipidemia 95793216 E78.5 Colostomy present 240940 009 Z93.3 Type 2 jonathon betes mellitus 90512124 E11.9 9217918 Anne Tiera [address] [place] [address] 09/26/2016 15:41:14 09/26/2016 16:27:06 Anxiety 12523083 F41.9 Insomnia 058380550 G47.0 0 9969527 Anne Tiera[address] [place] [address] 10/29/2016 10:15:48 10/29/2016 13:51:37 Insomnia 467461804 G47.00 History of hypertension 552528905 Z86.79 Anxiety 48843102 F41.9 History of cardiovascular disease 909588161 Z86.79 Neuropathy due to diabetes mellitus 631650510 E11.40 Colostomy present 624233 009 Z93.3 Hypothyroidism 76588601 E03.9 Type 2 jonathon betes mellitus 78244281 E11.9 Hyperlipidemia 67521726 E78.5 [id number] Anne Tiera[address] [place] [address] 11/26/2016 14:15:45 11/26/2016 15:26:09 Renewal of prescription 658364213 Z76.0 History of cardiovascular disease 491107620 Z86.79 History of hypertension 598502282 Z86.79 Type 2 jonathon betes mellitus 24687455 E11.9 Anxiety 98597644 F41.9 [id number] Annearturo Mott[address] [place] [address] 12/27/2016 13:29:34 12/27/2016 14:15:59 Renewal of prescription 052791940 Z76.0 Insomnia 700836142 G47.0 0 Active or passive immunization 236776836 Z23 [id number] Annearturo Mott [address] [place] [address] 01/22/2017 14:06:34 01/22/2017 15:30:08 Renewal of prescription 206875357 Z76.0 Anxiety 37346229 F41.9 Body mass index 30+ - obesity 281199891 Z68.34 [id number] Annearturo Mott [address] [place] [address] 02/28/2017 13:01:09 02/28/2017 13:53:23 Renewal of prescription 848682739 Z76.0 Anxiety 23591028 F41.9 Body mass index 30+ - obesity 306920740 Z68.34 [id number] Annearturo Mott[address] [place] [address] 04/25/2017 10:46:10 04/25/2017 12:02:47 Neuropathy due to diabetes mellitus 726006724 E13.40 Renewal of prescription 001010219 Z76.0 Anxiety 22654740 F41.9 History of cardiovascular disease 613308984 Z86.79 Hypothyroidism 11672937 E03.9 [id number] Vincent Amin MD [address] [place] [address] 05/23/2017 14:14:23 05/23/2017 15:31:00 Diabetes mellitus 14367985 E11.9 Candidiasis 19980879 B37 .9 Colostomy present 305174 009 Z93.3 Type 2 jonathon betes mellitus 07672881 E11.37X1 Anxiety 14871841 F41.9 Hyperlipidemia 50229815 E78.5 [id number] Anne Mott[address] [place] [address] 07/11/2017 10:03:27 07/11/2017 11:41:31 Neuropathy due to diabetes mellitus 504145384 E13.40 Insomnia 642935168 G47.0 0 Body mass index 30+ - obesity 830733045 Z68.34 [id number] Anne Mott [address] [place] [address] 07/24/2017 12:46:10 07/24/2017 15:28:15 Anxiety 02774170 F41.9 Renewal of prescription 417181905 Z76.0 Candidiasis of skin 4988 3006 B37.2 [id number] Annearturo Mott[address] [address] 08/22/2017 09:40:55 08/22/2017 10:52:06 Anxiety 59498343 F41.9 Type 2 jonathon betes mellitus 49837149 E11.9 Hypothyroidism 74207872 E03.9 History of hypertension 634370107 Z86.79 History of cardiovascular disease 936534659 Z86.79 Fatigue 95377909 R53.83 Viral screening 08636232 4 Z11.59 Screening for malignant neoplasm of colon 364731972 Z12.11 Hyperlipidemia 97197665 E78.5 Vitamin D deficiency 347 95208 E55.9 Anemia 132224307 D64.9 Pain of mu ltiple joints 12010617 M25.50 9444040 Annearturo Mott[address] [place] [address] 09/03/2017 12:38:43 09/03/2017 13:52:03 Methicillin resistant Staphylococcus aureus infection 532587395 A49.02 Chronic confusion 112481 005 R41.0 0066556 Annearturo Mott[address] [place] [address] 09/23/2017 13:13:01 09/23/2017 14:08:42 Anxiety 32410937 F41.9 History of hypertension 683886915 Z86.79 [id number] Betsey Cuellar[address] [place] [address] 10/24/2017 15:22:59 10/24/2017 17:13:34 Anxiety 20266269 F41.9 Benign hypertension 1072 5009 I10 8168100 Annearturo Mott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 [address] 12/19/2017 15:49:29 12/19/2017 18:10:12 Anxiety 58262577 F41.9 Candidiasis of skin 4988 3006 B37.2 Hordeolum externum of upper eyelid of right eye 8918416071 69705 H00.011 Candidiasis 68739775 B37 .9 History of hypertension 806181692 Z86.79 Neuropathy due to diabetes mellitus 022568326 E11.40 Hyperlipidemia 85712206 E78.5 Pancreatitis 81507980 K8 5.90 External hordeolum 65193 08 H00.019 Urostomy present 0335810 04 Z93.6 [id number] Betsey Cuellar [facility] [address] [facility] [place] [address] 02/20/2018 08:48:36 02/20/2018 09:19:38 Anxiety 89889723 F41.9 Neuropathy due to diabetes mellitus 665785798 E11.40 Benign hypertension 1072 5009 I10 Insomnia 529060389 G47.0 0 Hypothyroidism 78747295 E03.9 Fecal occu lt blood: positive 724278670 R19.5 [id number] Ivonne Jones [address] [address] 02/26/2023 13:49:28 02/26/2023 15:29:07 Anxiety 80798107 F41.9 discussed with pt and daughter that due to her pot smoking daily and she takes 4 controlled substance, at this time I would not take those over. discussed if she would stop smoking pot and give a clean uds I could do her xanax and gabapentin but would not write norco and ambien. Depressive disorder 9968 9007 F32.A History of cardiovascular disease 576201568 Z86.79 History of hypertension 370263720 Z86.79 Hypothyroidism 52636182 E03.9 Insomnia 012832906 G47.0 0 Neoplasm o f urinary bladder 604792166 D49.4 Neuropathy due to diabetes mellitus 406739626 E11.40 Type 2 jonathon betes mellitus 59192169 E11.9 pt interested in omnipod pump. Urostomy present 3141971 04 Z93.6 6169681 Ivonne Jones [place] [address] 03/26/2023 10:33:57 03/26/2023 11:48:39 Anxiety 50086457 F41.9 discussed with pt and daughter due to her smoking pot she needs to work on stop smoking. will send xanax and take it over. Depressive disorder 1042 9007 F32.A will increase depression med and send sleep aid. Type 2 jonathon betes mellitus 06228645 E11.9 Long-term current use of benzodiazepine 5834944872 2003882 Z79.899 Insomnia 618601423 G47.0 0 1096487 Ivonne Jones [place] [address] 04/09/2023 10:59:34 04/09/2023 11:37:43 Insomnia 531764265 G47.00 discussed risk with pt Anxiety 70693722 F41.9 discussed with pt and daughter due to her smoking pot she needs to work on stop smoking. will send xanax and take it over. [id number] Ivonne Jones [place] [address] 04/15/2023 10:51:49 04/15/2023 12:57:47 Type 2 diabetes mellitus 48271717 E11.9 omnipod pod will not connect to pump notified omnipod customer service [id number] Ivonne Jones [place] [address] 05/07/2023 10:38:41 05/07/2023 11:06:32 Anxiety 77293637 F41.9 discussed with pt and daughter due to her smoking pot she needs to work on stop smoking. will send xanax and take it over.pt states she has continued to not smoke pot. Type 2 jonathon betes mellitus 73233491 E11.9 call omnipod for replacemen t pump- number given to pt [id number] Ivonne Jones [address] [address] 05/10/2023 10:37:59 05/10/2023 11:39:12 Type 2 diabetes mellitus 17853194 E11.9 omnipod set up and pt verbalizes understand ing [id number] Ivonne Jones [address] [address] 05/13/2023 10:53:27 05/13/2023 11:57:27 Type 2 diabetes mellitus 05956785 E11.9 dexcom set up and pt verbalizes understand ing 6582415 Daysivioleta Jones [address] [address] 05/31/2023 08:50:06 05/31/2023 09:49:38 Type 2 diabetes mellitus 82725349 E11.9 dexcom set up and pt verbalizes understand ing Anxiety 81672045 F41.9 discussed with pt and daughter due to her smoking pot she needs to work on stop smoking. will send xanax and take it over.pt states she has continued to not smoke pot. Vitamin D deficiency 347 41095 E55.9 [id number] Ivonne Jones [address] [address] 06/17/2023 09:04:34 06/17/2023 09:45:38 Acute confusion 221546991 R41.0 Chronic ki dney disease 477253140 N18.9 Acute urin glenroy tract infection 870245304 N39.0 if symptoms worsen or no improvemen t return or go to ed 5306914 Daysivioleta Jones [address] [address] 06/25/2023 10:50:22 06/25/2023 11:21:34 Depressive disorder 52256099 F32.A will increase depression med and send sleep aid. Anxiety 94443990 F41.9 discussed with pt and daughter due to her smoking pot she needs to work on stop smoking. will send xanax and take it over.pt states she has continued to not smoke pot. Type 2 jonathon betes mellitus 50068948 E11.9 [id number] Daysicrystalantonio Maysdaxa [address] [address] 10/17/2023 14:02:27 10/17/2023 14:34:54 Anxiety 83753720 F41.9 Pt compliant with plan of careKasper reviewedme dication compliance discussedL ast uds:10/17/23 Control substance agreement on file Long-term current use of benzodiazepine 1121964606 6509698 Z79.899 discussed uds results and pt states she will stop smoking pot. discussed next visit if uds not neg will start adjusting meds Type 2 jonathon betes mellitus 63423128 E11.9 discussed the importance to check glucosewri te it down in log and bring to next appointmen tdiscussed importance of taking insulin and taking care of self. [id number] Ivonne Jones [address] [address] 11/15/2023 09:01:36 11/15/2023 09:58:44 Anxiety 05400365 F41.9 Pt compliant with plan of careKasper reviewedme dication compliance discussedL ast uds:10/17/23 Control substance agreement on filewill give 7 extra tabs to take at noon if needed on days where her anxiety is increased Depressive disorder 1745 9007 F32.A History of hypertension 557728893 Z86.79 History of cardiovascular disease 282458575 Z86.79 Hyperlipidemia 10869039 E78.5 Hypothyroidism 75553052 E03.9 Type 2 jonathon betes mellitus 94210302 E11.9 discussed the importance to check glucosewri te it down in log and bring to next appointmen tdiscussed importance of taking insulin and taking care of self. Neuropathy due to diabetes mellitus 327404171 E11.40 Urostomy present 6435612 04 Z93.6 Candidiasis 30366050 B37 .9 keep area clean and dry apply cream [id number] Ivonne Jones [address] [address] 11/29/2023 10:40:35 11/29/2023 11:26:24 Influenza vaccine needed 7363268059 106 Z23 Pain of ri ght upper arm 8620895823 56030 M79.621 Type 2 jonathon betes mellitus 85919483 E11.9 discussed the importance to check glucosewri te it down in log and bring to next appointmen tdiscussed importance of taking insulin and taking care of self. Pain of ri ght shoulder joint 5020951264 0661418 M25.881 [id number] Daysivioleta Jones[address] [address] 12/24/2023 10:36:27 12/24/2023 11:33:59 Renewal of prescription 793489714 Z76.0 Depressive disorder 3548 9007 F32.A Type 2 jonathon betes mellitus 55957529 E11.9 discussed the importance to check glucosewri te it down in log and bring to next appointmen tdiscussed importance of taking insulin and taking care of self. Vitamin D deficiency 347 14348 E55.9 History of cardiovascular disease 030291462 Z86.79 Restless l egs syndrome 63081667 G25.81 Urostomy present 1882943 04 Z93.6 3193546 Ivonne Jones[address] [address] 01/21/2024 14:10:39 01/21/2024 15:59:35 Long-term current use of benzodiazepine 2113250912 3388038 Z79.899 discussed uds results. again discussed the importance of not smoking pot with meds. pt states it helps with anxiety. will increase meds discussed the concerns of her continuing to smoke pot and her contract Anxiety 48986511 F41.9 Pt compliant with plan of careKasper reviewedme dication compliance discussedL ast uds:Control substance agreement on filewill give 7 extra tabs to take at noon if needed on days where her anxiety is increased 8891287 Ivonne Jones [address] [address] 02/13/2024 13:49:38 02/13/2024 15:05:04 Acute exacerbation of chronic obstructive pulmonary disease 522337016 J44.1 continue steroidsbr eathing txif symptoms worsen or do not improve return Candidiasis of skin 4988 3006 B37.2 if worsen returnclea n skin well apply powder and then vaseline, then gauze 6493777 Ivonne Jones [address] [address] 03/02/2024 14:49:29 03/02/2024 16:01:58 Candidiasis of mouth 18582708 B37.0 Memory impairment 608418 006 R41.3 5431026 Ivonne Jones [address] [address] 03/26/2024 14:43:32 03/26/2024 15:44:32 Pressure injury stage I 8051011210 L89.91 dressing applied to buttocks- wound care referral sent Congestive heart failure 51596266 I50.9 History of cardiovascular disease 429451899 Z86.79 call cardiology mercedes if plavix is not in home meds- discussed the need to have plavix unless told by cardiology not to be on Pneumonia 761206261 J18. 9 continue treatment 6681156 Ivonne Jones [address] [address] 04/14/2024 11:10:09 04/14/2024 12:13:43 Chronic obstructive pulmonary disease 81777338 J44.9 Urostomy present 0822350 04 Z93.6 Abnormal weight gain 161 041470 R63.5 Dyspnea 501253856 R06.00 pt refuses to go to ed. discussed risk of not going pt still declines pt states she is not going to the [facility] 6600887 Ivonne Jones [address] [address] 05/11/2024 13:31:52 05/11/2024 13:57:29 Anxiety 63082664 F41.9 Pt compliant with plan of careKasper reviewedme dication compliance discussedL ast uds:Control substance agreement on filewill give 7 extra tabs to take at noon if needed on days where her anxiety is increased Unexplaine d weight loss 395718233 R63.4 History of cardiovascular disease 895521182 Z86.79 History of primary malignant neoplasm of urinary bladder 677120012 Z85.51 Screening for malignant neoplasm of breast 745660030 Z12.39 [id number] Ivonne Jones SENIOR COMMUNICATIONS SPECIALIST [address] [address] 06/18/2024 13:58:48 06/18/2024 14:40:44 Candidiasis of skin 58708951 B37.2 471997 if worsen returnclea n skin well apply powder and then vaseline, then gauze Pruritus of vagina 75232 003 N89.8 236647 4420342 Ivonne Jones [address] [address] 08/11/2024 13:37:47 08/11/2024 14:45:46 Anxiety 35527878 F41.9 Pt compliant with plan of careKasper reviewedme dication compliance discussedL ast uds:08/12/19 25Control substance agreement on fileuds results discussed- discussed pp control substance policy Type 2 jonathon betes mellitus 13847743 E11.9 discussed the importance to check glucosewri te it down in log and bring to next appointmen t Normal weight 43383841 Z 68.24 7935937150 24.8 Family conflict 80499082 Z63.8 11115 Chronic constipation 236 262791 K59.09 227953 Health Concerns Section Related Observation LastModified by Organization Detai ls LastModified Time None Recorded Concern Status LastModified by Organization Details LastModified Time None Recorded Advance Directives Directive N: Payers Insurance Date Sequence Insurance Name Policy Number Policy Garnica Covered Member ID Garnica Member ID Guarantor Name 11/11/2024 2 [place] [employer] CHO[employer] - FFS/TRADITIO RAFA Cronin [id number] Laxmi Cronin 08/11/2024 2 MEDICAID-[facility] CHOICES - FFS/TRADITIO NAL Laxmi Cronin [id number] Laxmi Cronin 04/02/2023 SLIDING FEE SCHEDULE - DISCOUNT Laxmi Cronin 11/11/2024 1 [employer] - GOLD PLUS (MEDICARE REPLACEMENT/ ADVANTAGE - HMO) Laxmi Cronin [id number] Laxmi Cronin 08/11/2024 2 [place] Laxmi Cronin [id number] Laxmi Cronin 11/12/2024 NGS [facility] - [place] - [facility] (MEDICARE) Laxmi Cronin [id number] Laxmi Cronin Notes Date Note Type Note Provider Name and Address Organization Details Recorded Time 03/26/2024 text/html Emergency Depart ment Follow-Up RecordReported by PatientEmergency Room Follow-Up RecordFor discharge information, patient reportsname of hospital/urgent care patient was seen: ([facility] and ),patient presented to hospital/urgent care [...] to kidneys/urinary tract and the other at [facility] for pneumonia and pulmonary embolus. Ivonne Jones, CHONG [address], [place], [address], [place] - [facility] 03/26/2024 15:49:08 04/14/2024 text/html ROS as noted in the HPI 63 yr old female presents with raspy cough and short of breath. She has gained around 15 pounds in the last few weeks. Ivonne Jones, SENIOR COMMUNICATIONS SPECIALIST [address], [place], [address], [place] [facility] 04/14/2024 12:06:30 05/11/2024 text/html 63 year old female who presents to the office today for a follow up on anxiety, needs alprazolam refilled. pt states meds help with her anxiety.pt has lost 15lbs since last visit on 04-14-24,declines colonoscopy, will do mamm.labs,urology consult, pt states she just is not hungry or feel like eating. Ivonne Jones APRN [address], [place], [address], [facility] - [facility] 05/11/2024 14:10:36 06/18/2024 text/html ROS as noted in the HPI 64 yr old female presents for vaginal discharge and itching for over a week. She is red under abdomen, breast and groin. Ivonne Jones APRN [address], [place], [address], [facility] - [facility] 06/18/2024 14:48:28 08/11/2024 text/html [...] Ivonne Jones APRN [address], [place], [address], [place] - [facility] 08/11/2024 16:56:42 OBGyn Episode No OBEpisode recorded.
--- OUTSIDE RECORDS SUMMARY | 2024-12-21 08:57 | XMS_ITS | Encounter Summary ---
Author Organization [employer] ([place], [place], [place], [place], [place]) Address [address] [place] [address] Care Team Providers Care Unit Supervisor Name Role Phone Unavailable Primary Care Provider Unavailabl e Encounter Details Date Type Department Care Team (Late st Contact Info) Description 03/26/2018 Transcribed Document [facility] [place] Family Medicine [address] [place] [address] ProviderZion MD [address] [place] [address] Social History Tobacco Use Types [...] - Historical ProviderMD - 03/26/2018 2:00 AM FLOOR REPRESENTATIVE Solar Resource Assessor Details Entered On: 03/26/2018 1:20 EST Performed [...]
--- OUTSIDE RECORDS SUMMARY | 2024-12-21 08:57 | XMS_ITS | Encounter Summary ---
Author Organization [employer] ([place], [place], [place], [place], [place]) Address [address] [place] [address] Care Team Providers Care Compatibility Test Engineer Name Role Phone Unavailable Primary Care Provider Unavailabl e Encounter Details Date Type Department Care Team (Late st Contact Info) Description 05/07/[address] [facility] [place] [facility] [place] [facility] [place] [address] ProviderZion MD [address] [place] [address] Social History Tobacco Use Types Packs/Day [...] Zion ProviderMD - 05/07/2018 1:16 PM CDT [address] [place] [address] Patient Copy Patient Information: Name: ETHAN CRONIN Current Date: 05/07/2018 13:16:44 : 1960 Patient Address: [address] [place] [address] Patient Attending Physician: AAJY MARCANO MD-CAR Primary Care Provider: SUJIT DAWKINS (REF)IFTIKHAR Primary Care Provider Discharge Diagnosis: Weight on Admission: 163 lb, 0 oz Comment: Follow-up Instructions: With: Address: When: AJAY MARCANO [address] [facility], [address] [place] [phone] Business ([employer] Within 2 to 3 days Comments: Follow-up [...] 11/25/2009 Document Revised: 07/05/2016 Document Reviewed: 07/30/2013 [employer] Interactive Patient Education ? 2017 [employer] [place]. CIGARETTE SMOKING: The facts are clear, cigarette smoking will shorten your life. Smoking can cause many illnesses along the way. As a healthcare provider, we recommend that you stop smoking. Assistance with quitting is available by contacting 2-515-RAMI-NOW. This is a free resource providing counseling, [...] Be sure to sign up for the [employer] patient portal, which gives you 03/09 access to your medical information ??? including these discharge instructions ??? using your computer, smartphone, or tablet. Just go to [address] to get started. Questions? Call . [facility] would like to thank you for allowing us to assist you with your healthcare needs. GERTRUDE Mcconnell VERONICA GAY, (or sales representative meats) have received the above patient education materials/instructions and have verbalized understanding: Patient Signature _ Date/Time Patient Bending Roll Hand Signature (if needed) Date/Time Clinician/Hospital Bending Roll Hand Signature (if needed) Date/Time Electronically signed by Jorge Alberto, [facility] Conversion Tanbark Laborer Cerner at 05/29/2022 8:56 PM CDT documented in this encounter Plan of Treatment Not on file documented as of this encounter Visit Diagnoses Not on filedocumented in this encounter
--- OUTSIDE RECORDS SUMMARY | 2024-12-21 08:58 | XMS_ITS | Encounter Summary ---
Author Organization [employer] ([place], [place], [place], [place], [place]) Address [address] [place] [address] Care Team Providers Care Bone Plant Supervisor Name Role Phone Unavailable Primary Care Provider Unavailabl e Encounter Details Date Type Department Care Team (Late st Contact Info) Description 03/23/2018 Transcribed Document [facility] [place] [address] [place] [address] ProviderZion MD [address] [place] [address] Social History Tobacco Use Types [...] - Historical ProviderMD - 03/23/2018 5:16 PM STATION MECHANIC HELPER Event Note Entered On: 03/23/2018 17:17 EST Performed On: 03/23/2018 17:16 EST by Demetri Arrington, Rn Event Note Event Date/Time : 03/23/2018 17:16 EST Description of Event : patient to rm # [id number] Kristen Nelson notified Demetri Arrington, Rn - 03/23/2018 17:16 EST Electronically signed by Jorge Alberto [facility] Conversion Mercury Washer Cerner at 05/29/2022 8:41 PM CDT documented in this encounter Plan of Treatment Not on file documented as of this encounter Visit Diagnoses Not on filedocumented in this encounter
--- OUTSIDE RECORDS SUMMARY | 2024-12-21 08:58 | XMS_ITS | Encounter Summary ---
Author Organization [employer] ([place], [place], [place], [place], [place]) Address [address] [place] [address] Care Team Providers Care Director Of Casework Name Role Phone Unavailable Primary Care Provider Unavailabl e Encounter Details Date Type Department Care Team (Late st Contact Info) Description 05/07/2018 Transcribed Document [facility] [place] [facility] [place] [address] [place] [address] ProviderZion MD [address] [place] [address] Social History Tobacco Use Types [...] you are awake and alert. ??? Take aeos-vqy-wnflmpr and prescription medicines only as told by [...] 11/18/2013 Document Revised: 07/02/2016 Document Reviewed: 05/19/2016 [employer] Interactive Patient Education ? 2017 [employer] Radiology Transesophageal Echocardiogram Transesophageal echocardiography (BROCK) [...] 11/25/2009 Document Revised: 07/05/2016 Document Reviewed: 07/30/2013 [employer] Interactive Patient Education ? 2017 [employer] documented in this encounter Plan of Treatment Not on file documented as of this encounter Visit Diagnoses Not on filedocumented in this encounter
--- OUTSIDE RECORDS SUMMARY | 2024-12-21 08:58 | XMS_ITS | Encounter Summary ---
Author Organization [employer] ([place], [place], [place], [place], [place]) Address [address] [place] [address] Care Team Providers Care Assisted Living Nursing Director Name Role Phone Unavailable Primary Care Provider Unavailabl e Encounter Details Date Type Department Care Team (Late st Contact Info) Description 03/29/2018 Transcribed Document [facility] [place] [facility] [place] [address] ProviderZion MD [address] [place] [id number] Social History Tobacco Use Types Packs/Day Years Used Date Smoking Tobacco: Never Assessed Comments Unknown Sex and Gender Information Value Date Recorded Sex Assigned at Not on file Legal Sex Female 4:39 PM CDT Gender Identity Not on file Sexual Orientation Not on file documented as of this encounter Miscellaneous Notes * Cerner Conversion Note - Zion Alonso MD - 03/29/2018 8:09 AM NATURE PHOTOGRAPHER Patient: ETHAN CRONIN Age: 57 years Sex: [...] to have bradycardia and was admitted to [facility] on 03/23/17. I was consulted on [...] cefTRIAXone (Rocephin) - 2 Gram, IV Piggyback, I13DDps, infuse over 30 Minute(s), Routine Anticoagulant heparin [...] Normal strength, No tenderness. Integumentary: Warm, Dry, [place], No pallor, No rash, Left chest wall [...] [facility] (spoke to Maurice Spencer, at [facility]). BROCK consistent with mitral valve [...] Dr. Perez's service, cardiology, and Dr. Alan.. commercial account manager: Please arrange for outpatient IV antibiotics with Rocephin 2 g IV every 12 hours until 05/04/18. Follow CBC, CMP, CRP weekly while on IV antibiotics. Fax orders to [phone], and call [phone] with final arrangements. Arrange for follow-up with me in 2 weeks post discharge. documented in this encounter Plan of Treatment Not on file documented as of this encounter Visit Diagnoses Not on filedocumented in this encounter
--- OUTSIDE RECORDS SUMMARY | 2024-12-21 08:58 | XMS_ITS | Encounter Summary ---
Author Organization [employer] ([place], [place], [place], [place], [place]) Address [address] [place] [address] Care Team Providers Care Light Equipment Operator Name Role Phone Unavailable Primary Care Provider Unavailabl e Encounter Details Date Type Department Care Team (Late st Contact Info) Description 03/29/2018 Transcribed Document [facility] Family Medicine [address] [place] [address] ProviderZion MD [address] [place], [place] [id number] Social History Tobacco Use Types Packs/Day Years Used Date Smoking Tobacco: Never Assessed Comments Unknown Sex and Gender Information Value Date Recorded Sex Assigned at Not on file Legal Sex Female 4:39 PM CDT Gender Identity Not on file Sexual Orientation Not on file documented as of this encounter Miscellaneous Notes * Cerner Conversion Note - Historical ProviderMD - 03/29/2018 1:20 PM KNAPSACK SPRAYER Care Management Assessment/Plan Entered On: 03/29/2018 13:22 EST Performed On: 03/29/2018 13:20 EST by Odalys Bush Rn-Power OperatorProration Clerk Note Anticipated Discharge Date : 03/30/2018 14:00 EST Care Management Note : Confirmed with [facility] that patient can transfer today [phone]; [phone]. Spoke with patient's daughter Jazmine [phone] who plans to transport[address] Dr. Hamilton advised and dishcarge pharmacy aware. Patient should be ready to transport by 15:00. Care Management Note Report : Ninoska Cuellar, Rn-Power Operator Ed - 03/28/18 20:23:22 CM faxed orders to [facility] for IV abx f [phone] per orders. CM will need to call [facility] to notify them of final d/c plan per MD orders p [phone]. CM to follow for ongoing d/c planning/needs. Ninoska Cuellar, Rn-Power Operator Ed - 03/28/18 18:12:15 CM recieved call from Gama at [facility] stating they can take pt at their facility, but not until Saturday, as they now have an agreement with [facility]. CM then spoke with Edie from [facility] and she again confirms they can accept pt at their facility tomorrow. CM updated pt and now pt is agreeable to go to [facility]. She also gave CM permission to speak with Jazmine joshi by phone p [phone]. CM spoke with Jazmine and she is agreeable with plan for [facility], stating its much closer to them, approx 30 min. Pt tells CM that her PCP, Dr. Davis had told her that she was not able to do IV abx from home. Discharge plan will be to go to [facility] in the am. CM updated Dr. Stauffer and he reports he will notify [facility] for tomorrow. CM will cont to follow for ongoing d/c planning/needs. Ninoska Cuellar, Rn-Power Operator Ed - 03/28/18 16:01:02 [facility] Clem states home cost for Rocephin is $3.70/wk. She states they may be able to contract with SNF to provide abx at pt's cost. She asked CM to have SNF call Paulo at their office to see about arranging. CM called MADELYN Corona with [facility] and she will [facility] to see if this can be arranged. Updated BS RNAva. CM will cont to follow. Ninoska Cuellar, Rn-Power Operator Ed - 03/28/18 14:57:29 Called [facility] and spoke with Chiquita and updated her on IV abx needs. SHe will check cost and call CM back to see if bed offer is still on the table. CM left for Sheri with [facility] to update her, left requesting return phone call. CM updated pt and she appears discouraged that [facility] will not accept her as a pt. She tells CM that she is considering just going home. BLAKE also called Clem with [facility] to argueta abx at home. She states that [facility] may also be able to contract with facility to provide them with abx at their cost. CM faxed info on pt and abx to [facility] f [phone]. CM updated BS RN, Ava. CM will cont to follow. Ninoska Cuellar, Rn-Power Operator Ed - 03/28/18 14:21:[address] Robert bradley and he tells CM that pt is ready for discharge from his standpoint and that ID has a plan in place for IV abx. PT does have a PICC in place. Recieved VM from [facility] with [facility] p [phone] stating they are interested in pt. CM went to BS to speak with pt to discuss bed offers. CM presented bed offers and pt tells CM that she really doesn't want to go to another facility. Pt tells CM that she only wants to go to [facility], as she has been there in the past. [facility] had not make bed offer at this time. BLAKE called and spoke with Gama in admissions at [facility] and she tells CM that per her DON, they do not believe they can meet pt's needs at this time. CM pressed for more information and Gama told CM that she would have DON call her. -CM then spoke with MADELYN Corona at [facility] and she states that pt appears too sick at this time to come to their facility. BLAKE provided her with verbal updates, as well as faxed updates f [phone]. She states they will reevaluate now, knowing [...] pt at this time due to the $0184-5350 IV rocephin cost through 05/04/[address] Diaz orders. Cm to follow for ongoing d/c planning/needs. Stew Porras, REGULO - 03/27/18 16:25:12 edie from [place] ([phone] ex [phone]) called to make bed offer. bed offers will be presented to pt 03[facility]28[phone] Stew Porras, RN - 03/27/18 15:00:29 spoke [...] Documentation Status Complete : Yes Odalys Bush, Rn-Power Operator - 03/29/2018 13:20 EST Electronically signed by Jorge Alberto [facility] Conversion Specialty Transformer Assembler Cerner at 05/29/2022 8:48 PM CDT documented in this encounter Plan of Treatment Not on file documented as of this encounter Visit Diagnoses Not on filedocumented in this encounter
--- OUTSIDE RECORDS SUMMARY | 2024-12-21 08:58 | XMS_ITS | Encounter Summary ---
Author Organization [employer] ([place], [place], [place], [place], [place]) Address [address] [place] [address] Care Team Providers Care Marble Cleaner Name Role Phone Unavailable Primary Care Provider Unavailabl e Encounter Details Date Type Department Care Team (Late st Contact Info) Description 05/07/2018 Transcribed Document [facility] [place] [address] [place] [address] ProviderZion MD [address] [place] [id number] Social History Tobacco Use Types Packs/Day Years [...] 16:09 EDT Electronically signed by Jorge Alberto [facility] Conversion Wet Mixer Cerner at 05/29/2022 8:32 PM CDT documented in this encounter Plan of Treatment Not on file documented as of this encounter Visit Diagnoses Not on filedocumented in this encounter
--- OUTSIDE RECORDS SUMMARY | 2024-12-21 08:58 | XMS_ITS | Encounter Summary ---
Author Organization [employer] ([place], [place], [place], [place], [place]) Address [address] [place] [address] Care Team Providers Care Extract Mixer Name Role Phone Unavailable Primary Care Provider Unavailabl e Encounter Details Date Type Department Care Team (Late st Contact Info) Description 05/07/2018 Transcribed Document [facility] [place] [address] [place] [address] ProviderZion MD [address] [place] [address] Social History Tobacco Use Types [...] Source : Stated Height Entry Format : Travis Height, Feet : 5 ft(Converted to: 152 cm, 60 Inch) Height, Inches : 1 Inch(Converted to: 0 ft 1 Inch, 2.54 cm) Clinical Height : 154.94 cm Weight Source : Standing scale Weight Entry Format : Travis Clinical Dosing Weight : 74.09 kg Weight, Pounds : 163 lb Body Surface Area (BSA) : 1.73 m2 Body Mass Index : 30.9 kg/m2 (HI) [place] Body Weight : 47 kg GAYLA CASE [...] Family History of Anesthesia Reaction : None GAYAL CASE RN - 05/07/2018 11:33 EDT Functional [...] : daughter Emergency Contact #1 Relationship : [phone] Emergency Contact #2 : . Emergency Contact #2 Phone Number : . Emergency Contact #2 Relationship : . Primary Language : Hungarian Preferred Communication Mode : Verbal Communication Barrier [...] Scale Risk Level : 25-45 Medium Risk [place] Fall Interventions : Adequate lighting, Assistive devices within reach, Personal items within reach, Reinforced to call for assistance before getting out of bed GAYLA CASE RN - 05/07/2018 11:33 EDT Valuables and Belongings Valuables and Belongings : Clothing Clothing : Common streetwear Clothing Disposition : Bedside, With family EVIEGAYLA RN - 05/07/2018 11:33 EDT Electronically signed by Jorge Alberto [facility] Conversion Bookkeeper Cerner at 05/29/2022 8:46 PM CDT documented in this encounter Plan of Treatment Not on file documented as of this encounter Visit Diagnoses Not on filedocumented in this encounter
--- OUTSIDE RECORDS SUMMARY | 2024-12-21 08:58 | XMS_ITS | Encounter Summary ---
Author Organization [employer] ([place], [place], [place], [place], [place]) Address [address] [place] [address] Care Team Providers Care Drug Safety Associate Name Role Phone Unavailable Primary Care Provider Unavailabl e Encounter Details Date Type Department Care Team (Late st Contact Info) Description 03/23/2018 Transcribed Document [facility] [place] [address] [place] [address] ProviderZion MD [address] [place] [phone] Social History Tobacco Use Types Packs/Day Years Used Date Smoking Tobacco: Never Assessed Comments Unknown Sex and Gender Information Value Date Recorded Sex Assigned at Not on file Legal Sex Female 4:39 PM CDT Gender Identity Not on file Sexual Orientation Not on file documented as of this encounter Miscellaneous Notes * Cerner Conversion Note - Historical ProviderMD - 03/23/2018 5:54 PM STRINGING MACHINE TENDER Care Management Assessment/Plan Entered On: 03/26/2018 17:47 [...] yr old W F transferred here from [facility] w/ bradycardia, positive blood cultures/strep B sepsis bactremia. PMH includes: bladder cancer, CAD s/p CABG, MVR, PPM plcmt (for which pt has had no F/U), pancreatitis, , COPD, DM, HTN, HLD, depression and anxiety. Pt underwent BROCK today due to concern for possible infected pacemaker (report not in yet). She is currently on 2gm IV rocephin, which [facility] says she will need until 04/20/18. [facility], claims she is indep w/ all activities. D/C plan pending outcome of possible pacer removal, may well be good [facility] candidate. She denies any needs now, CM will cont to follow. DEEPA GALDAMEZ, Metallurgical Engineer - 03/26/2018 17:36 EST documented in this encounter Plan of Treatment Not on file documented as of this encounter Visit Diagnoses Not on filedocumented in this encounter
--- OUTSIDE RECORDS SUMMARY | 2024-12-21 08:58 | XMS_ITS | Encounter Summary ---
Author Organization [employer] ([place], [place], [place], [place], [place]) Address [address] [place] [address] Care Team Providers Care Mobile Pet Groomer Name Role Phone Unavailable Primary Care Provider Unavailabl e Encounter Details Date Type Department Care Team (Late st Contact Info) Description 03/29/2018 Transcribed Document [facility] Radiology [address] [place] [address] [place] [address] [place] [address] Social History Tobacco Use Types Packs/Day [...] Rocephin: 2 Gram, 100 mL/Hr, IV Piggyback, [id number] Tylenol: 650 mg, Oral, Q4H, PRN: Other [...] 0 Refill(s) Rocephin: 2 Gram, IV Piggyback, [id number], 0 Refill(s) carvedilol 3.125 mg oral tablet: [...] At Bedtime Rocephin 2 Gram, IV Piggyback, [id number] , Medications (26) Active Scheduled: (14) aspirin EC 81 mg tab 81 mg 1 Tab, Oral, Daily carvedilol 3.125 mg tab 3.125 mg 1 Tab, Oral, Daily cefTRIAXone 2 Gram, IV Piggyback, [id number] citalopram 20 mg tab 20 mg 1 [...] - Coronary artery disease / SNOMED CT 7108839426 / Confirmed Cardiomyopathy / SNOMED CT 987499100 / Confirmed HLD - Hyperlipidemia / SNOMED CT 785993729 / Confirmed HTN - Hypertension / SNOMED CT 3719948286 / Confirmed, Active Problems (14) Anxiety Atrial [...] to rehab when bed available. Discussed with bilingual patient support caseworker. documented in this encounter Plan of Treatment Not on file documented as of this encounter Visit Diagnoses Not on filedocumented in this encounter
--- OUTSIDE RECORDS SUMMARY | 2024-12-21 08:58 | XMS_ITS | Encounter Summary ---
Author Organization [employer] ([place], [place], [place], [place], [place]) Address [address] [place] [address] Care Team Providers Care Pail Tester Name Role Phone Unavailable Primary Care Provider Unavailabl e Encounter Details Date Type Department Care Team (Late st Contact Info) Description 03/29/2018 Transcribed Document [facility] [place] [facility] [place] [address] ProviderZion MD [address] [place] [id number] Social History Tobacco Use Types Packs/Day Years Used Date Smoking Tobacco: Never Assessed Comments Unknown Sex and Gender Information Value Date Recorded Sex Assigned at Not on file Legal Sex Female 4:39 PM CDT Gender Identity Not on file Sexual Orientation Not on file documented as of this encounter Miscellaneous Notes * Cerner Conversion Note - Zion ProviderMD - 03/29/2018 1:35 PM CAFE ASSISTANT Patient: ETHAN LOREDO Age: 57 years [...] Rocephin: 2 Gram, 100 mL/Hr, IV Piggyback, [id number] Tylenol: 650 mg, Oral, Q4H, PRN: Other [...] 0 Refill(s) Rocephin: 2 Gram, IV Piggyback, T93PRda, 0 Refill(s) carvedilol 3.125 mg oral tablet: [...] At Bedtime Rocephin 2 Gram, IV Piggyback, R04YAwc , Medications (25) Active Scheduled: (13) aspirin EC 81 mg tab 81 mg 1 Tab, Oral, Daily carvedilol 3.125 mg tab 3.125 mg 1 Tab, Oral, Daily cefTRIAXone 2 Gram, IV Piggyback, [id number] citalopram 20 mg tab 20 mg 1 [...] - Coronary artery disease / SNOMED CT 2351135391 / Confirmed Cardiomyopathy / SNOMED CT 704881877 / Confirmed HLD - Hyperlipidemia / SNOMED CT 435737367 / Confirmed HTN - Hypertension / SNOMED CT 7965705708 / Confirmed Resolved: COPD - Chronic obstructive pulmonary disease / SNOMED CT 304712448, Active Problems (14) Anxiety Atrial flutter Bladder [...] 03/29/2018 06:25 Blood Urea Nitrogen 53 mg/dL CA 03/29/2018 06:25 Glucose Level 97 mg/dL 03/29/2018 06:25 Calcium Level 9.4 mg/dL 03/29/2018 06:25 Impression and Plan EP status ok. Inc bun/cr- dc lisinopril. On No diuretics documented in this encounter Plan of Treatment Not on file documented as of this encounter Visit Diagnoses Not on filedocumented in this encounter
--- OUTSIDE RECORDS SUMMARY | 2024-12-21 08:58 | XMS_ITS | Encounter Summary ---
Author Organization [employer] ([place], [place], [place], [place], [place]) Address [address] [place] [address] Care Team Providers Care Protective Services Social Worker Name Role Phone Unavailable Primary Care Provider Unavailabl e Encounter Details Date Type Department Care Team (Late st Contact Info) Description 03/23/2018 Transcribed Document [facility] [place] [address] [place] [address] ProviderZion MD [address] [place] [address] Social History Tobacco Use Types [...] - Historical ProviderMD - 03/23/2018 5:28 PM STRUCTURAL IRON ERECTOR Admission History, Adult Entered On: 03/23/2018 17:38 [...] #2 Relationship : sister Primary Language : Gambian Preferred Communication Mode : Verbal Communication Barrier [...] Scale Risk Level : 25-45 Medium Risk [place] Fall Interventions : Adequate lighting, Assistive devices [...] Source : Stated Height Entry Format : Mcleod Height, Feet : 5 ft(Converted to: 152 [...] Body Mass Index : 31.4 kg/m2 (HI) [place] Body Weight : 47 kg Demetri Arrington [...] 17:28 EST Electronically signed by Jorge Alberto, [facility] Conversion Director Geophysical Laboratory Cerner at 05/29/2022 8:46 PM CDT documented in this encounter Plan of Treatment Not on file documented as of this encounter Visit Diagnoses Not on filedocumented in this encounter
--- OUTSIDE RECORDS SUMMARY | 2024-12-21 08:58 | XMS_ITS | Encounter Summary ---
Author Organization [employer] ([place], [place], [place], [place], [place]) Address [address] [place] [address] Care Team Providers Care Transition Lead Name Role Phone Unavailable Primary Care Provider Unavailabl e Encounter Details Date Type Department Care Team (Late st Contact Info) Description 05/07/2018 Transcribed Document [facility] [place] [facility] [place] [address] [place] [address] ProviderZion MD [address] [place] [address] Social History Tobacco Use Types [...]
--- OUTSIDE RECORDS SUMMARY | 2024-12-21 08:58 | XMS_ITS | Encounter Summary ---
Author Organization [employer] ([place], [place], [place], [place], [place]) Address [address] [place] [address] Care Team Providers Care Travel Guide Name Role Phone Unavailable Primary Care Provider Unavailabl e Encounter Details Date Type Department Care Team (Late st Contact Info) Description 03/29/2018 Transcribed Document [facility] [place] [address] [place] [address] ProviderZion MD [address] [place] [address] Social History Tobacco Use Types [...] - Zion ProviderMD - 03/29/2018 3:54 PM LOGISTICS SOLUTION MANAGER Patient Education Materials Follows:Disease Endocarditis Endocarditis is [...] these instructions at home: Medicines ??? Take ipqd-nfn-uqnfmer and prescription medicines only as told by [...] 01/28/2006 Document Revised: 11/09/2016 Document Reviewed: 11/09/2016 [employer] Interactive Patient Education ? 2017 [employer] documented in this encounter Plan of Treatment Not on file documented as of this encounter Visit Diagnoses Not on filedocumented in this encounter
--- OUTSIDE RECORDS SUMMARY | 2024-12-21 08:58 | XMS_ITS | Clinical Summary ---
Author Organization [facility] [place] Address [address] [place] [address] Care Team Providers Care Budget Officer Name Role Phone Cosme Davis MD Primary Care Provider [phone] Allergies No known active allergies Medications * [...] MG EC tablet 4 Active HYDROcodone-ac etaminophen ([place]) 5-325 MG tablet 5 Active insulin syringe-needle [...] - 11/13/2024 11:59 PM EDT Hospital Encounter [facility] [address], [address] [place] [address] Pain in pelvis Discharge Disposition: Home or Self Care 11/13/2024 11:20 AM EDT Office Visit [facility] [address], 1[address] [place] [address] Paulo Marquis MD Pain in pelvis (Primary Dx) 11/13/2024 Travel 10/19/2024 Travel 10/18/2024 Travel 10/16/2024 Travel 10/14/2024 Travel 10/13/2024 Travel 10/12/2024 Orders Only External Location [address] [place] [id number] Tito Madrid MD 10/12/2024 Orders Only External Location [address] [place] [address] Tito Madrid MD 10/12/2024 Orders Only External Location [address] [place] [address] Tito Madrid MD 10/12/2024 Travel from Last 3 Months Immunizations Immunization [...] any time in the past 12 m [facility], were you homeless or living in a longterm (including now)? No 10/13/2024 [facility] Utilities Answer Date Recorded In the past 12 months has [facility] electric, gas, oil, or water company threatened [...] Info) Description 01/21/2025 1:30 PM EST Appointment [facility] [address] [facility] 5th Floor [address] [place] [address] 01/21/2025 2:00 PM EST Appointment [facility] [address] Floor [address] [place] [address] 01/21/2025 2:40 PM EST Office Visit [facility] [address] [facility] 5th Floor Wing [address] [place] [address] Jose Rosario MD [address] [facility] [address] [place] [address] Health Maintenance Due Date Last Done Comments [facility]-Depression Screening 1962 [facility]-Medicare Annual Wellness (AWV) 1960 [facility]-/Child/Adol SDOH Screenings 1960 [id number] Vaccine (#1) 06/04/1967 Diabetes: Dental Exam 1972 [...] HORMONE (ACTH) Routine 10/16/2024 8:11 AM EDT [facility] CRIT[facility] CARE, E/M 30-74 MINUTES Routine 10/16/2024 6:41 AM EDT Closed fracture of ramus of right pubis, initial encounter ([facility]) Shock ([facility]) Essential hypertension Complex medical condition POCT GLUCOSE [...] EDT CORTISOL Routine 10/15/2024 8:29 AM EDT [facility]ARE, E/M 30-74 MINUTES Routine 10/15/2024 [...] KNOWN SYPHILIS) Routine 10/14/2024 9:44 AM EDT [facility] CRITICAL CARE, E/M 30-74 MINUTES Routine 10/14/2024 8:59 AM EDT Closed fracture of ramus of right pubis, initial encounter ([facility]) Shock ([facility]) XR CHEST 1 VIEW STAT 10/14/2024 7:59 [...] Routine 10/13/2024 9:26 AM EDT Shock (CMS/HCC) AR INSERT NON-TUNNEL CV CATH Routine 10/13/2024 9:26 AM EDT Shock (CMS/HCC) XR CHEST 1 VIEW STAT 10/13/2024 9:25 AM EDT HC INSERT CATH,ART,PERCUT,SHORTTERM Routine 10/13/2024 9:09 AM EDT Shock (CMS/HCC) AR INSERT CATH,ART,PERCUT,SHORTTERM Routine 10/13/2024 9:09 AM EDT [...] of87 resultswithin the time period is included. Pathologist [facility] POCT Glucose 251(H) 74 - 99 mg/dL [...] Comment 10/30/2024 12:01 PM EDT [facility]ALTH[facility]ARE [facility] Integrated Circuits Inspector ID Jessika [id number] 12:01 PM EDT HEALTHCARE LAB Device ID [id number] 10/30/2024 12:01 PM EDT [facility]ALTHCARE LAB Specimen Type POC Capillary 10/30/2024 12:01 PM EDT [facility] Blood Capillary blood specimen / Unknown 10/30/2024 11:58 AM EDT 10/30/2024 12:01 PM EDT us Tiffany Patten DO LAB POINT OF CARE TE ST DOCKED DEVICE UNSOLICITED RESULTS Final Result [facility] [address] [place] [address] * (ABNORMAL) CBC W/O Differential (10/28/2024 3:43 AM EDT) Only the most recent of4 resultswithin the time period is included. Pathologist [facility] WBC Count 9.69 3.70 - 10.30 10*3/uL LAB HEMATOLOGY METHOD 10/28/2024 4:21 AM EDT HEALTHCARE LAB RBC Count 2.95(L) 3.90 - 5.20 10*6/uL LAB HEMATOLOGY METHOD 10/28/2024 4:21 AM EDT [facility] HGB 8.3(L) 11.2 - 15.7 g/dL LAB HEMATOLOGY METHOD 10/28/2024 4:21 AM EDT [facility] HCT 27.0(L) 34.0 - 45.0 % LAB HEMATOLOGY METHOD 10/28/2024 4:21 AM EDT [facility] Platelet Count 363 155 - 369 10*3/uL LAB HEMATOLOGY METHOD 10/28/2024 4:21 AM EDT [facility] MCV 92 79 - 98 fL LAB HEMATOLOGY METHOD 10/28/2024 4:21 AM EDT [facility] MCH 28.1 26.0 - 32.0 pg LAB HEMATOLOGY METHOD 10/28/2024 4:21 AM EDT [facility] MCHC 30.7 30.7 - 35.5 g/dL LAB HEMATOLOGY METHOD 10/28/2024 4:21 AM EDT [facility] RDW 24.8(H) 11.5 - 14.5 % LAB HEMATOLOGY METHOD 10/28/2024 4:21 AM EDT [facility] MPV 11.9 8.8 - 12.5 fL LAB HEMATOLOGY METHOD 10/28/2024 4:21 AM EDT [facility] nRBC 0.0 <=0.0 per 100 WBCs LAB HEMATOLOGY METHOD 10/28/2024 4:21 AM EDT [facility] Blood Venous blood specimen / Unknown Venipuncture / Unknown 10/28/2024 3:43 AM EDT 10/28/2024 4:13 AM EDT us Tiffany Patten DO LAB BLOOD ORDERABLES Final Re sult [facility] [address] [place] [address] * Magnesium, Plasma (10/28/2024 3:43 AM EDT) Only the most recent of5 resultswithin the time period is included. Magnesium, Plasma 2.2 1.9 - 2.4 mg/dL 10/28/2024 4:42 AM EDT [facility] Blood Venous blood specimen / Unknown Venipuncture / Unknown 10/28/2024 3:43 AM EDT 10/28/2024 4:13 AM EDT us Tiffany Patten DO LAB BLOOD ORDERABLES Final Re sult [facility] [address] [place] [address] * (ABNORMAL) Renal Function Panel, Plasma (10/28/2024 3:43 AM EDT) Glucose, Plasma 276(H) 74 - 99 mg/dL 10/28/2024 4:42 AM EDT [facility] BUN, Plasma 89(H) 8 - 23 mg/dL 10/28/2024 4:42 AM EDT [facility] Creatinine, Plasma 2.19(H) 0.60 - 1.10 mg/dL 10/28/2024 4:42 AM EDT [facility] BUN/Creatinine Ratio 41 10/28/2024 4:42 AM EDT [facility] Sodium, Plasma 138 136 - 145 mmol/L 10/28/2024 4:42 AM EDT [facility] Potassium, Plasma 5.1(H) 3.6 - 4.9 mmol/L 10/28/2024 4:42 AM EDT [facility] Chloride, Plasma 102 97 - 107 mmol/L 10/28/2024 4:42 AM EDT [facility] CO2, Plasma 25 22 - 29 mmol/L 10/28/2024 4:42 AM EDT [facility] Anion Gap 11 6 - 16 mmol/L 10/28/2024 4:42 AM EDT [facility] Total Calcium, Plasma 8.9 8.9 - 10.2 mg/dL 10/28/2024 4:42 AM EDT [facility] Phosphorus, Plasma 2.8 2.5 - 4.5 mg/dL 10/28/2024 4:42 AM EDT [facility] Albumin, Plasma 3.0(L) 3.5 - 5.2 g/dL 10/28/2024 4:42 AM EDT [facility] eGFRcr 24.9 mL/min/1.7 3m*2 10/28/2024 4:42 AM EDT [facility] Comment:Reported eGFRcr in m L/min/1.73m2 is based the CKD-EPI 2020 equation that does not use a race coefficient. Blood Venous blood specimen / Unknown Venipuncture / Unknown 10/28/2024 3:43 AM EDT 10/28/2024 4:13 AM EDT Tiffany Patten DO LAB BLOOD ORDERABLES Final Re sult [facility] [address] [place] [id number] * (ABNORMAL) CBC and differential (10/26/2024 9:19 AM EDT) Only the most recent of11 resultswithin the time period is included. WBC Count 9.12 3.70 - 10.30 10*3/uL LAB HEMATOLOGY METHOD 10/26/2024 9:25 AM EDT [facility] RBC Count 3.03(L) 3.90 - 5.20 10*6/uL LAB HEMATOLOGY METHOD 10/26/2024 9:25 AM EDT [facility] HGB 8.5(L) 11.2 - 15.7 g/dL LAB HEMATOLOGY METHOD 10/26/2024 9:25 AM EDT [facility] HCT 27.1(L) 34.0 - 45.0 % LAB HEMATOLOGY METHOD 10/26/2024 9:25 AM EDT [facility] Platelet Count 331 155 - 369 10*3/uL LAB HEMATOLOGY METHOD 10/26/2024 9:25 AM EDT [facility] MCV 89 79 - 98 fL LAB HEMATOLOGY METHOD 10/26/2024 9:25 AM EDT [facility] MCH 28.1 26.0 - 32.0 pg LAB HEMATOLOGY METHOD 10/26/2024 9:25 AM EDT [facility] MCHC 31.4 30.7 - 35.5 g/dL LAB HEMATOLOGY METHOD 10/26/2024 9:25 AM EDT [facility] RDW 24.6(H) 11.5 - 14.5 % LAB HEMATOLOGY METHOD 10/26/2024 9:25 AM EDT [facility] MPV 11.4 8.8 - 12.5 fL LAB HEMATOLOGY METHOD 10/26/2024 9:25 AM EDT [facility] nRBC 0.0 <=0.0 per 100 WBCs LAB HEMATOLOGY METHOD 10/26/2024 9:25 AM EDT [facility] Differential Type Automated LAB HEMATOLOGY METHOD 10/26/2024 9:25 AM EDT [facility] Neutrophils % 76 % LAB HEMATOLOGY METHOD 10/26/2024 9:25 AM EDT [facility] Lymphocytes % 13 % LAB HEMATOLOGY METHOD 10/26/2024 9:25 AM EDT [facility] Monocytes % 7 % LAB HEMATOLOGY METHOD 10/26/2024 9:25 AM EDT [facility] Eosinophils % 3 % LAB HEMATOLOGY METHOD 10/26/2024 9:25 AM EDT [facility] Basophils % 1 % LAB HEMATOLOGY METHOD 10/26/2024 9:25 AM EDT [facility] Immature Granulocytes % 0 % LAB HEMATOLOGY METHOD 10/26/2024 9:25 AM EDT [facility] Neutrophils Absolute 6.90(H) 1.60 - 6.10 10*3/uL LAB HEMATOLOGY METHOD 10/26/2024 9:25 AM EDT [facility] Lymphocytes Absolute 1.22 1.20 - 3.90 10*3/uL LAB HEMATOLOGY METHOD 10/26/2024 9:25 AM EDT [facility] Monocytes Absolute 0.60 0.30 - 0.90 10*3/uL LAB HEMATOLOGY METHOD 10/26/2024 9:25 AM EDT [facility] Eosinophils Absolute 0.31 0.00 - 0.50 10*3/uL LAB HEMATOLOGY METHOD 10/26/2024 9:25 AM EDT [facility] Basophils Absolute 0.05 0.00 - 0.10 10*3/uL LAB HEMATOLOGY METHOD 10/26/2024 9:25 AM EDT [facility] Immature Granulocytes Absolute 0.04 0.00 - 0.06 10*3/uL LAB HEMATOLOGY METHOD 10/26/2024 9:25 AM EDT [facility]ALTHCARE LAB Blood Venous blood specimen / Unknown Venipuncture / Unknown 10/26/2024 9:19 AM EDT 10/26/2024 9:23 AM EDT [facility] - 10/26/2024 9:25 AM EDT Therapeutic decision making should be based on absolute values, rather than percentages. us Yuriy Lockett MD LAB BLOOD ORDERABLES Final Resul t [facility] [address] [place], [place] [id number] * (ABNORMAL) Basic metabolic panel (10/26/2024 9:19 AM EDT) Only the most recent of10 resultswithin the time period is included. Glucose, Plasma 244(H) 74 - 99 mg/dL 10/26/2024 9:49 AM EDT [facility] BUN, Plasma 76(H) 8 - 23 mg/dL 10/26/2024 9:49 AM EDT [facility] Creatinine, Plasma 1.97(H) 0.60 - 1.10 mg/dL 10/26/2024 9:49 AM EDT [facility] BUN/Creatinine Ratio 39 10/26/2024 9:49 AM EDT [facility] Sodium, Plasma 138 136 - 145 mmol/L 10/26/2024 9:49 AM EDT [facility] Potassium, Plasma 5.0(H) 3.6 - 4.9 mmol/L 10/26/2024 9:49 AM EDT [facility] Chloride, Plasma 102 97 - 107 mmol/L 10/26/2024 9:49 AM EDT [facility] CO2, Plasma 25 22 - 29 mmol/L 10/26/2024 9:49 AM EDT [facility] Anion Gap 11 6 - 16 mmol/L 10/26/2024 9:49 AM EDT [facility] Total Calcium, Plasma 8.7(L) 8.9 - 10.2 mg/dL 10/26/2024 9:49 AM EDT [facility] eGFRcr 28.3 mL/min/1.7 3m*2 10/26/2024 9:49 AM EDT [facility] Comment:Reported eGFRcr in m L/min/1.73m2 is based the CKD-EPI 2020 equation that does not use a race coefficient. Blood Venous blood specimen / Unknown Venipuncture / Unknown 10/26/2024 9:19 AM EDT 10/26/2024 9:23 AM EDT us Yuriy Lockett MD LAB BLOOD ORDERABLES Final Resul t [facility] [address] [place] [address] * (ABNORMAL) Hemoglobin and Hematocrit, Blood (10/25/2024 12:23 PM EDT) Only the most recent of11 resultswithin the time period is included. HGB 8.1(L) 11.2 - 15.7 g/dL LAB HEMATOLOGY METHOD 10/25/2024 12:30 PM EDT [facility] HCT 25.4(L) 34.0 - 45.0 % LAB HEMATOLOGY METHOD 10/25/2024 12:30 PM EDT [facility] Blood Venous blood specimen / Unknown Venipuncture / Unknown 10/25/2024 12:23 PM EDT 10/25/2024 12:27 PM EDT us Yuriy Lockett MD LAB BLOOD ORDERABLES Final Resul t Performing Organization Address City/[facility] de Phone Number [facility] [address] [place] [address] * (ABNORMAL) Potassium (10/23/2024 10:26 AM EDT) Only the most recent of3 resultswithin the time period is included. Potassium, Plasma 5.2(H) 3.6 - 4.9 mmol/L 10/23/2024 10:53 AM EDT [facility] Blood Venous blood specimen / Unknown Venipuncture / Unknown 10/23/2024 10:26 AM EDT 10/23/2024 10:33 AM EDT us Yuriy Lockett MD LAB BLOOD ORDERABLES Final Resul t Performing Organization Address City/[facility] Co de Phone Number [facility] [address] [place] [address] * ECG Adult (10/23/2024 8:22 AM EDT) Only the most recent of4 resultswithin the time period is included. EKG DIAGNOSIS CLASS Abnormal MUSE ECG Ventricular Rate 85 BPM MUSE ECG QRSD Interval 94 ms MUSE ECG QT Interval 378 ms MUSE ECG QTC Interval 449 ms MUSE ECG R [place] 23 degrees MUSE ECG T Wave [place] 124 degrees MUSE ECG Diagnosis Atrial fibrillation [...] 7:08 PM EDT us Yuriy Lockett MD [facility] BLOOD BANK TEST ORDERABLES F inal Result Performing Organization Address City/[facility]/ZIP Co de Phone Number BLOOD BANK [address] [place] [address], [place] * Antibody Identification (10/22/2024 7:04 PM EDT) Only the most recent of3 resultswithin the time period is included. Antibody ID Anti-E Non-specif ic Patricia 10/22/2024 8:04 PM EDT BLOOD BANK Blood Venous blood specimen / Unknown Venipuncture / Unknown 10/22/2024 7:04 PM EDT 10/22/2024 7:08 PM EDT us Yuriy Lockett MD [facility] BLOOD BANK TEST ORDERABLES F inal Result Performing Organization Address City/[facility]/ZIP Co de Phone Number BLOOD [facility] [address] [place] [address], [place] * (ABNORMAL) Type and screen (10/22/2024 [...] 10/22/2024 7:08 PM EDT Yuriy Lockett MD [facility] BLOOD BANK TEST ORDERABLES F inal Result Performing Organization Address [facility] de Phone Number BLOOD BANK [address] [place] [address], [place] * Prepare Leukocyte Reduced RBC: 1 Units (10/22/2024 5:02 PM EDT) Only the most recent of3 resultswithin the time period is included. [facility] Signature Product Code [id number] BLOO D BANK Dispense Status Transfused BLOOD BANK Blood Expiration Date [id number] BLOOD BANK Unit Number [id number] B LOOD BANK Product Blood Type 5100 BLOOD BANK Blood Type O+ BLOOD BANK Crossmatch Compatible BLOOD BANK Other Yuriy Lockett MD BLOOD BANK PRODUCT ORDERABLES Fi nal Result Performing Organization Address [facility] de Phone Number BLOOD BANK [address] [place] [address], [place] * XR Knee Right 3 Views (10/18/2024 [...] calcification. Procedure Note Stewart Wiggins MD - 09/08/2025 CLINICAL INDICATION: PMF TECHNIQUE: XR PELVIS 3+ [...] Stewart Wiggins MD on 10/19/2024 8:14 AM us Aidan Harrison MD IMG XR PROCEDURES Final Result * (ABNORMAL) Phosphorus (10/17/2024 1:04 AM EDT) Only the most recent of4 resultswithin the time period is included. Phosphorus, Plasma 1.7(L) 2.5 - 4.5 mg/dL 10/17/2024 1:43 AM EDT [facility] Blood Venous blood specimen / Unknown Venipuncture / Unknown 10/17/2024 1:04 AM EDT 10/17/2024 1:14 AM EDT us Aidan Harrsion MD LAB BLOOD ORDERABLES Final Res ult [facility] [address] [place] [address] * (ABNORMAL) Comprehensive metabolic panel (10/17/2024 1:04 [...] ult [facility] [address] [place] [address] * FL Modified Barium Swallow (10/16/2024 3:05 [...] sips by the cup or the teaspoon. Fingal consistency (IDDSI 2): There is no aspiration [...] sips by the cup or the teaspoon. [place]ingal consistency (IDDSI 2): There is no aspiration [...] analytical performance characteristics have been determined by [employer]. It has not been cleared or approved by the FDA. This assay has been validated pursuant to the CLIA regulations and is used for clinical purposes. Blood Venous blood specimen / Unknown Venipuncture / Unknown 10/16/2024 8:11 AM EDT 10/16/2024 8:22 AM EDT Narrative [facility] ([facility] ([facility]) - 10/20/2024 12:14 PM EDT Performing Organization Information: Site ID: [id number] Name: [employer] Address: [address] [place] [id number] Director: Enedina Thao MD, PhD Aidan Harrison MD LAB BLOOD ORDERABLES Final Res ult [facility] (BEAKER) [employer] [facility] [address] [place] [address] * (ABNORMAL) ACTH (10/16/2024 8:11 AM EDT) Only the most recent of2 resultswithin the time period is included. ACTH 5.45(L) 7.2 - 63 pg/mL 10/16/2024 11:38 AM EDT [facility] Blood Venous blood specimen / Unknown Venipuncture / Unknown 10/16/2024 8:11 AM EDT 10/16/2024 8:42 AM EDT iAdan Harrison MD LAB BLOOD ORDERABLES Final Res ult Performing Organization Address City/[facility]/ZIP Co de Phone Number [facility] [address] [place] [address] * Folate (10/16/2024 8:11 AM EDT) Folate, Serum 8.2 >4.6 ng/mL 10/16/2024 9:29 AM EDT [facility] Blood Venous blood specimen / Unknown Venipuncture / Unknown 10/16/2024 8:11 AM EDT 10/16/2024 8:34 AM EDT us Aidan Harrison MD LAB BLOOD ORDERABLES Final Res ult [facility] [address] [place] [address] * Ferritin (10/16/2024 8:11 AM EDT) Ferritin, Serum 73 13 - 150 ng/mL 10/16/2024 9:29 AM EDT [facility] Blood Venous blood specimen / Unknown Venipuncture / Unknown 10/16/2024 8:11 AM EDT 10/16/2024 8:34 AM EDT us Aidan Harrison MD LAB BLOOD ORDERABLES Final Res ult Performing Organization Address City/[facility]/ZIP Co de Phone Number [facility] [address] [place] [address] * Vitamin B12 (10/16/2024 8:11 AM EDT) Vitamin B12, Serum 906 210 - 1,033 pg/mL 10/16/2024 9:[address] [facility] Blood Venous blood specimen / Unknown Venipuncture / Unknown 10/16/2024 8:11 AM EDT 10/16/2024 8:34 AM EDT Aidan Harrison MD LAB BLOOD ORDERABLES Final Res ult Performing Organization Address [facility] [place] [address] * AR CRITICAL CARE, E/M 30-74 MINUTES (10/16/2024 6:41 [...] ORDERABLES Final Res ult Performing Organization Address [facility]/ZIP Co de Phone Number [facility] [address] [place] [address] * CORTISOL, 60 (10/15/2024 1:29 PM EDT) [...] Res ult [facility] [address] [place] [address] * Cortisol, 30 (10/15/2024 12:55 PM EDT) Cortisol,Time=30 31.20 Before 10am: 3.7 - 19.4. After 5pm: 2.9 - 17.3 ug/dL 10/15/2024 2:42 PM EDT [facility] Comment:Administer cosyntrop in and obtain serum cortisol a Blood Venous blood specimen / Unknown Venipuncture / Unknown 10/15/2024 12:55 PM EDT 10/15/2024 1:21 PM EDT Aidan Harrison MD LAB BLOOD ORDERABLES Final Res ult Performing Organization Address City/[facility]/ZIP Co de Phone Number [facility] [address] [place] [address] * Aldosterone (10/15/2024 12:08 PM EDT) Aldosterone 23.0 4.0 - 31.0 ng/dL 10/16/2024 1:[address] [facility] Blood Venous blood specimen / Unknown Venipuncture / Unknown 10/15/2024 12:08 PM EDT 10/15/2024 2:08 PM EDT us Aidan Harrison MD LAB BLOOD ORDERABLES Final Res ult Performing Organization Address [facility] Co de Phone Number [facility] [address] [place] [address] * Cortisol Baseline (10/15/2024 12:08 PM EDT) [...] ORDERABLES Final Res ult Performing Organization Address City/[facility] Co de Phone Number [facility] [address] [place] [address] * Cortisol (10/15/2024 8:29 AM EDT) Cortisol 9.60 Before 10am: 3.7 - 19.4. After 5pm: 2.9 - 17.3 ug/dL 10/15/2024 9:29 AM EDT [facility] Comment:Testing performed on [employer], standardized against ALF Reference Standard concentration values assigned by LC-MS/MS and verified by BCR 192 and BCR 193 certified reference materials. Blood Venous blood specimen / Unknown Venipuncture / Unknown 10/15/2024 8:29 AM EDT 10/15/2024 8:38 AM EDT us Aidan Harrison MD LAB REF LAB BLOOD AND FLUID OR D Final Result [facility] [address] [place] [address] * AR CRITICAL CARE, E/M 30-74 MINUTES (10/15/2024 6:49 [...] predict 28 day mortality risk. Please consult [email or web address] for more information. Test performed at [facility]. us Aidan Harrison MD LAB BLOOD ORDERABLES Final Res ult [facility] [address] [place] [address] * (ABNORMAL) Comprehensive Urine Drug Screening, Qualitative [...] ult [facility] [address] [place] [address] * Vitamin B1, Whole Blood (10/14/2024 2:35 PM EDT) Pathologist [facility] VITAMIN B1, WHOLE BLOOD 128 70 - 180 nmol/L 10/17/2024 1:55 PM EDT [facility] ([facility]) Blood Arterial blood specimen / Unknown Arterial Line / Unknown 10/14/2024 2:35 PM EDT 10/14/2024 2:50 PM EDT Narrative [facility] MICKY MOTLEY) - 10/17/2024 1:55 PM EDT INTERPRETIVE INFORMATION: Vitamin B1, Whole Blood This assay measures the concentration of thiamine diphosphate (TDP), the primary active form of vitamin B1. Approximately 90 percent of vitamin B1 present in whole blood is TDP. Thiamine and thiamine monophosphate, which comprise the remaining 10 percent, are not measured. This test was developed and its performance characteristics determined by [employer]. It has not been cleared or approved by the [place] Food and Drug Administration. This test was performed in a CLIA certified laboratory and is intended for clinical purposes. Performed By: [employer] [address] [place], [place] [id number] Terminal Make Up Operator: Jasper Newsome MD, PhD CLIA Number: [id number] us Aidan Harrison MD LAB BLOOD ORDERABLES Final Res ult [facility] ([facility]) [address] [place] [address] * (ABNORMAL) Blood gas panel with oximetry, [...] Res ult [facility] [address] [place] [address] * Treponema Pallidum (Syphilis) Antibodies with Reflex [...] ORDERABLES Final Res ult Performing Organization Address [facility] [place] [address] * (ABNORMAL) T3 (10/14/2024 9:44 AM EDT) T3, Serum 47(L) 87 - 187 ng/dL 10/14/2024 11:57 PM EDT [facility] Blood Venous blood specimen / Unknown Venipuncture / Unknown 10/14/2024 9:44 AM EDT 10/14/2024 10:25 AM EDT us Aidan Harrison MD LAB BLOOD ORDERABLES Final Res ult Performing Organization Address [facility] [place] [address] * AR CRITICAL CARE, E/M 30-74 MINUTES (10/14/2024 8:59 [...] ORDERABLES Final Res ult Performing Organization Address City/[facility]/[place] [address] * (ABNORMAL) BETA HYDROXYBUTYRIC ACID (10/14/2024 6:25 AM EDT) Beta-Hydroxybu tyric Acid, Plasma 1.36(H) <=0.27 mmol/L 10/14/2024 7:30 AM EDT [facility] Blood Venous blood specimen / Unknown Venipuncture / Unknown 10/14/2024 6:25 AM EDT 10/14/2024 6:33 AM EDT us Aidan [place] MD LAB BLOOD ORDERABLES Final Res ult Performing Organization Address City/[facility]/[place] [address] * TSH (10/14/2024 6:25 AM EDT) Thyroid Stimulating Hormone, Plasma 2.89 0.40 - 4.20 uIU/mL 10/14/2024 2:24 PM EDT [facility] Blood Venous blood specimen / Unknown Venipuncture / Unknown 10/14/2024 6:25 AM EDT 10/14/2024 6:33 AM EDT us Aidan [place] MD LAB BLOOD ORDERABLES Final Res ult Performing Organization Address City/[facility]/[place] [address] * T4, free (10/14/2024 6:25 AM EDT) Free T4, Plasma 1.6 0.8 - 1.7 ng/dL 10/14/2024 2:24 PM EDT [facility] Blood Venous blood specimen / Unknown Venipuncture / Unknown 10/14/2024 6:25 AM EDT 10/14/2024 6:33 AM EDT us Aidan [place] MD LAB BLOOD ORDERABLES Final Res ult Performing Organization Address [facility] Co de Phone Number [facility] [address] [place] [address] * Ionized calcium, serum (10/14/2024 12:22 AM EDT) Ionized Calcium, Serum 4.8 4.6 - 5.3 mg/dL LAB HEMATOLOGY METHOD 10/14/2024 12:56 AM EDT [facility] Blood Venous blood specimen / Unknown Venipuncture / Unknown 10/14/2024 12:22 AM EDT 10/14/2024 12:34 AM EDT us Ksaey Win MD LAB BLOOD ORDERABLES Final Res ult Performing Organization Address [facility] Co de Phone Number [facility] [address] [place] [address] * XR Hand Right 3+ Views (10/13/2024 [...] Final Result [facility] [address] [place] [address] * AR INSERT NON-TUNNEL CV CATH, HC INSERT NON-TUNNEL CV CATH, CVC TRIPLE LUMEN (SMARTFORM LINK) (10/13/2024 9:26 AM EDT) Narrative Aidan [place] MD - 10/13/2024 9:26 AM EDT Aidan [place] MD 10/13/2024 3:36 PM Central Line Performed by: Jada Lazaro MD Authorized by: Aiadn [place] MD Consent: Consent obtained: Verbal Consent given by: Patient Risks, benefits, and alternatives were discussed: yes Alternatives discussed: No treatment Wadley protocol: Procedure explained and questions answered to [...] IN CLINIC/BEDSIDE ORDERABLES F inal Result * AR INSERT CATH,ART,PERCUT,SHORTTERM, HC INSERT CATH,ART,PERCUT,SHORTTERM (10/13/2024 9:09 AM EDT) Narrative Aidan [place] MD - 10/13/2024 9:09 AM EDT Aidan [place] MD 10/13/2024 3:36 PM Arterial line Performed by: Erickson Gr DO Authorized by: Aidan [place] MD Consent: Consent obtained: Emergent situation Consent given by: Patient Risks, benefits, and alternatives were discussed: yes Risks discussed: Bleeding, infection, ischemia, repeat procedure and pain Wadley protocol: Procedure explained and questions answered to [...] is no recent study available for direct apom-gj-cpyw comparison. Left Ventricle The left ventricle is [...] is no recent study available for direct qkal-cg-elhz comparison. us Cat Jamison MD CV ECHO [...] ORDERABLES Final Res ult Performing Organization Address City/[facility]/ZIP Co de Phone Number [facility] [address] [place] [address] * Blood Culture (Aerobic/Anaerobet Set) (10/13/2024 6:35 AM EDT) Culture No growth at day 5 LANA 10/18/2024 8:[address] [facility] Blood Venous blood specimen / Unknown Venipuncture / Unknown 10/13/2024 6:35 AM EDT 10/13/2024 7:18 AM EDT us Kasey Win MD LAB MICROBIOLOGY - GENERAL ORD ERABLES Final Result Performing Organization Address City/[facility] [place] [place] [address] * Urine Rao Panel (10/13/2024 6:08 AM EDT) Extra Reflex urine culture not indicated 10/13/2024 8:[address] [facility] Urine Urine specimen obtained by clean catch procedure / Unknown Non-blood Collection / Unknown 10/13/2024 6:08 AM EDT 10/13/2024 6:33 AM EDT us Kasey Win MD LAB URINE ORDERABLES Final Res ult Performing Organization Address City/[facility]/[place] [address] * Urinalysis Microscopic Examination (10/13/2024 6:08 AM EDT) Urine Urine specimen obtained by clean catch procedure / Unknown Non-blood Collection / Unknown 10/13/2024 6:08 AM EDT 10/13/2024 6:21 AM EDT us Kasey Win MD LAB URINE ORDERABLES Final Res ult [facility] [address] [place] [address] * (ABNORMAL) Urinalysis with reflex microscopic (Culture NOT Included) (10/13/2024 6:08 AM EDT) Only the most recent of2 resultswithin the time period is included. Color, Urine Yellow LAB URINALYSIS - AUTOMATED METHOD 10/13/2024 7:07 AM EDT [facility] Clarity, Urine Clear LAB URINALYSIS - AUTOMATED METHOD 10/13/2024 7:07 AM EDT [facility] Spec [place], Urine 1.016 1.005 - 1.030 LAB URINALYSIS [...] 7:07 AM EDT [facility] Urine Urine specimen obtained by clean catch procedure / Unknown Non-blood Collection / Unknown 10/13/2024 6:08 AM EDT 10/13/2024 6:21 AM EDT us Kasey Win MD LAB URINE ORDERABLES Final Res ult Performing Organization Address City/State/[facility] Co de Phone Number [facility] [address] [place] [address] * Viv auris Surveillance by PCR (10/13/2024 6:05 AM EDT) Viv auris PCR Result Not Detected Not Detected 10/13/2024 12:18 PM EDT [facility] Swab (Axilla and Groin) Non-blood Collection / Unknown 10/13/2024 6:05 AM EDT 10/13/2024 6:31 AM EDT Narrative [facility] - 10/13/2024 12:18 PM EDT This PCR assay was developed and its performance characteristics determined by [facility] as appropriate for clinical purposes. This assay has not been cleared or approved by the FDA, but is performed in a CLIA regulated laboratory that is qualified to perform high-complexity testing. us Kasey Win MD LAB MICROBIOLOGY - GENERAL ORD ERABLES Final Result [facility] [address] [place] [address] * (ABNORMAL) Multi Drug Resistance Test (10/13/2024 6:05 AM EDT) Culture Klebsiella pneumoniae ESBL(AA) LANA 10/17/2024 11:07 AM EDT [facility] Comment: The organism value for [...] and its performance characteristics determined by the [facility]. Although the media is FDA-approved, it is not FDA-approved for all specimen types submitted. The FDA has determined that such clearance or approval is not necessary. This test is used for surveillance purposes. It should not be regarded as investigational or for research. The [facility] is certified under the [...] ORD ERABLES Final Result Performing Organization Address [facility] Co de Phone Number [facility] [address] [place] [address] * Methicillin Resistant Staphylococcus aureus (MRSA) by [...] ORD ERABLES Final Result Performing Organization Address [facility] Co de Phone Number [facility] [address] [place] [address] * (ABNORMAL) Troponin T, High Sensitivity, 0 [...] Final Result [facility] [address] [place] [address] * (ABNORMAL) N-Terminal Probnp (10/13/2024 5:18 AM EDT) N-Terminal, PROBNP, Plasma 1,081(H) 0 - 899 pg/mL 10/13/2024 6:21 AM EDT [facility] Blood Venous blood specimen / Unknown Venipuncture / Unknown 10/13/2024 5:18 AM EDT 10/13/2024 5:24 AM EDT us Kasey Win MD LAB BLOOD ORDERABLES Final Res ult [facility] [address] [place] [address] * CT Bony Pelvis (10/13/2024 3:57 AM [...] Adults <6.0% Children and Adolescents <7.5% Source: [place] [employer]. Standards of medical care in diabetes,2017. Diabetes Care.2017:40 (suppl 1):S1-S135. us Kasey Win MD LAB BLOOD ORDERABLES Final Res ult [facility] [address] [place] [address] * (ABNORMAL) Blood gas, venous (10/13/2024 3:44 [...] MD LAB BLOOD ORDERABLES Final Resu lt [facility] [address] [place] [address] * Drug Abuse Screen, Urine (10/12/2024 11:56 [...] Jamison MD LAB URINE ORDERABLES Final Result [facility] [address] [place] [address] * (ABNORMAL) Anti Xa Level Low Molecular Weight (10/12/2024 11:56 PM EDT) Anti Xa Level Low Molecular Weight Heparin >2.00(HH) <2.00 IU/mL 10/13/2024 1:02 AM EDT [facility] Blood [...] ORDERABLES Final Resu lt Performing Organization Address City/[facility]/ZIP Co de Phone Number [facility] [address] [place] [address] * Red Blood Cell Antibody with Antigen Notification (10/12/2024 11:55 PM EDT) Notification, Gabriela Blood Cell Antibody with Antigen During your recent admission to the [facility], laboratory testing performed in the blood [...] do not hesitate to call me at [phone]. No defined reference value 10/14/2024 4:24 PM EDT BLOOD BANK Pathologist Signature, Red Blood Cell Antibody with Antigen Reviewed by: Srikanth Watson MD 10/14/2024 4:24 PM EDT BLOOD BANK Blood Venous blood specimen / Unknown Venipuncture / Unknown 10/12/2024 11:55 PM EDT 10/13/2024 12:04 AM EDT us Aidan [place] MD LAB BLOOD BANK TEST ORDERABLES Final Result Performing Organization Address [facility] Co de Phone Number BLOOD BANK [address] [place] [address], * ED HIV 1/2 Antibody/Antigen Screen w/Reflex [...] BLOOD ORDERABLES Final Result Performing Organization Address City/[facility]/ZIP Co de Phone Number [facility] [address] [place] [address] * (ABNORMAL) Trauma shock panel blood gas [...] BLOOD ORDERABLES Final Result Performing Organization Address City/[facility]/ZIP Co de Phone Number [facility] [address] [place] [address] * Ethyl Alcohol Plasma (10/12/2024 11:55 PM EDT) Ethanol Plasma <10 <10 mg/dL 10/13/2024 12:55 AM EDT [facility] Blood Venous blood specimen / Unknown Venipuncture / Unknown 10/12/2024 11:55 PM EDT 10/13/2024 12:12 AM EDT Narrative [facility] - 10/13/2024 12:55 AM EDT Enzymatic Assay: Performed on Nghia Nicole. us Cat Jamison MD LAB BLOOD ORDERABLES Final Result [facility] [address] [place] [address] * Hepatitis C Antibody - ED (10/12/2024 11:55 PM EDT) [facility] Hepatitis C Antibody Negative Negative 10/13/2024 12:[address] [facility] Blood Venous blood specimen / Unknown Venipuncture / Unknown 10/12/2024 11:55 PM EDT 10/13/2024 12:12 AM EDT Cat Jamison MD LAB BLOOD ORDERABLES Final Result Performing Organization Address [facility]/ZIP Co de Phone Number [facility] [address] [place] [address] * (ABNORMAL) TEG Global Hemostasis with Lysis (10/12/2024 11:55 PM EDT) [facility] R, Lysis 9.3(H) 4.6 - 9.1 min 10/13/2024 1:21 AM EDT [facility] MA, Rapid, Lysis 69.9 52.0 - 70.0 mm 10/13/2024 1:[address] [facility] MA, Fibrinogen, Lysis 32.5(H) 15.0 - 32.0 mm 10/13/2024 1:[address] [facility] LY30 0.8 0.0 - 2.6 % 10/13/2024 1:[address] [facility] Blood Venous blood specimen / Unknown Venipuncture / Unknown 10/12/2024 11:55 PM EDT 10/13/2024 12:17 AM EDT Cat Jamiosn MD LAB BLOOD ORDERABLES Final Result Performing Organization Address City/[facility]/ZIP Co de Phone Number [facility] [address] [place] [address] * (ABNORMAL) APTT (PTT) (10/12/2024 11:55 PM EDT) [facility] aPTT 36(H) 25 - 35 sec 10/13/2024 12:15 AM EDT [facility] Blood Venous blood specimen / Unknown Venipuncture / Unknown 10/12/2024 11:55 PM EDT 10/13/2024 12:01 AM EDT Cat Jamison MD LAB BLOOD ORDERABLES Final Result Performing Organization Address City/[facility]/ZIP Co de Phone Number [facility] [address] [place] [address] * (ABNORMAL) PT-INR (10/12/2024 11:55 PM EDT) Prothrombin Time 20.2(H) 12.0 - 14.3 sec 10/13/2024 12:[address] [facility] INR 1.7(H) 0.9 - 1.1 10/13/2024 12:14 [...] INR 2.5 to 3.5 Prevention of recurrent UT INR 2.5 to 3.5 us Cat Jamison MD LAB BLOOD ORDERABLES Final Result [facility] [address] [place] [address] * Test Qualitative Plasma (10/12/2024 11:55 PM EDT) Test Negative Negative 10/13/2024 1:02 AM EDT [facility] Blood Venous blood specimen / Unknown Venipuncture / Unknown 10/12/2024 11:55 PM EDT 10/13/2024 12:12 AM EDT Narrative [facility] - 10/13/2024 1:02 AM EDT Reference Range: Males and non- females: Negative. us Cat Jamison MD LAB BLOOD ORDERABLES Final Result [facility] [address] [place] [address] * CT OUTSIDE IMAGES (10/12/2024 8:15 PM [...] Documents on File Type Date Recorded Patient Director Of Logistics Expl anation Advance Directives and Livin g Will 10/14/2024 4:42 PM Advance Directives and Livin g Will 10/13/2024 6:35 AM * Full Code (Latest Code Status on File) Date Activated Date Inactivated Comments 10/13/2024 5:26 AM 10/30/2024 7:10 PM Question Answer Comments I have reviewed the capacity from the link above and, if needed, have updated to appropriate status: Yes Care Teams Budget Officer Relationship Specialty Start Date End Date Cosme Davis MD [address] [place] [address] PCP - General 06/24/20
--- OUTSIDE RECORDS SUMMARY | 2024-12-21 08:58 | XMS_ITS | Encounter Summary ---
Author Organization [employer] ([place], [place], [place], [place], [place]) Address [address] [place] [address] Care Team Providers Care Logistics Operations Manager Name Role Phone Unavailable Primary Care Provider Unavailabl e Encounter Details Date Type Department Care Team (Late st Contact Info) Description 03/23/2018 Transcribed Document [facility] [place] Family Medicine [address] [place] [address] ProviderZion MD [address] [place], [place] [id number] Social History Tobacco Use Types Packs/Day Years Used Date Smoking Tobacco: Never Assessed Comments Unknown Sex and Gender Information Value Date Recorded Sex Assigned at Not on file Legal Sex Female 4:39 PM CDT Gender Identity Not on file Sexual Orientation Not on file documented as of this encounter Miscellaneous Notes * Cerner Conversion Note - [place] ProviderMD - 03/23/2018 6:37 PM BI LEAD Patient: ETHAN CRONIN Age: 57 years Sex: Female : 1960 Associated Diagnoses: None Author: Anastacia Roth, Pharm.D.-Resident HPI: 57 year old female transferred from [facility] due to bradycardia during infusion. Pt has hx of CAD, CABG/pacemaker 3 years ago, DM, HTN, and MA. Pt also has hx of bacteremia and was on antibitoics outpatient and pt cannot confirm what abx she was on. Pharmacist called [facility] and confirmed that pt did not receive [...] will continue to follow Jameson SummersD PGY-1 Hot Top Liner [phone] documented in this encounter Plan of Treatment Not on file documented as of this encounter Visit Diagnoses Not on filedocumented in this encounter
--- OUTSIDE RECORDS SUMMARY | 2024-12-21 08:58 | XMS_ITS | Encounter Summary ---
Author Organization [employer] ([place], [place], [place], [place], [place]) Address [address] [place] [address] Care Team Providers Care Yard Jockey Name Role Phone Unavailable Primary Care Provider Unavailabl e Encounter Details Date Type Department Care Team (Late st Contact Info) Description 03/29/2018 Transcribed Document [facility] [address] [place] [address] ProviderZion MD [address] [place] [address] Social History Tobacco Use Types [...] - Zion ProviderMD - 03/29/2018 3:54 PM MEDICAL BILLING REPRESENTATIVE [address] [place] [address] Patient Copy Patient Information: Name: ETHAN CRONIN Current Date: 03/29/2018 15:54:26 : 1960 Patient Address: [address] [place] [id number] Patient Attending Physician: MELY WHITNEY MD Primary Care Provider: CRUZ, NOT LISTED Primary Care Provider Phone: Discharge Diagnosis: Endocarditis Weight on Admission: 165 lb, 14 oz Comment: Follow-up Instructions: With: Address: When: JOHN TSAI [address] [facility] [place] [address] Business (1) Within 1 month With: Address: When: SUJIT DUNBAR [address], [address] [place] [address] Business (1) Within 2 weeks With: Address: When: Follow up with primary care provider Within 1 to 2 weeks With: Address: When: AJAY KRYS 10:00 AM Comments: BROCK Check in at [facility] @ 10:00 NPO after midnight Discharge Instructions: Immunizations Documented During Stay: No Immunizations Found Discharge Summary Sent to: [facility] [phone] Special Instructions: Report: [facility] [phone] Heart Failure Discharge Instructions (if any): Stroke [...] these instructions at home: Medicines ??? Take [id number] and prescription medicines only as told by [...] 01/28/2006 Document Revised: 11/09/2016 Document Reviewed: 11/09/2016 [employer] Patient Education ? 2017 [employer] CIGARETTE SMOKING: The facts are clear, cigarette smoking will shorten your life. Smoking can cause many illnesses along the way. As a healthcare provider, we recommend that you stop smoking. Assistance with quitting is available by contacting 4-730-WBRV-NOW. This is a free resource providing counseling, [...] Be sure to sign up for the [employer] patient portal, which gives you 24/ access to your medical information ??? including these discharge instructions ??? using your computer, smartphone, or tablet. Just go to Mobile Messenger to get started. Questions? Call . [facility] would like to thank you for allowing us to assist you with your healthcare needs. GERTRUDE Mcconnell VERONICA G, (or access representative) have received the above patient education materials/instructions and have verbalized understanding: Patient Signature _ Date/Time Patient Interlacer Signature (if needed) Date/Time Clinician/Hospital Interlacer Signature (if needed) Date/Time documented in this encounter Plan of Treatment Not on file documented as of this encounter Visit Diagnoses Not on filedocumented in this encounter
--- OUTSIDE RECORDS SUMMARY | 2024-12-21 08:58 | XMS_ITS | Encounter Summary ---
Author Organization [employer] ([place], [place], [place], [place], [place]) Address [address] [place] [address] Care Team Providers Care Conductor Orchestra Name Role Phone Unavailable Primary Care Provider Unavailabl e Encounter Details Date Type Department Care Team (Late st Contact Info) Description 03/29/2018 Transcribed Document [facility] [place] Family Medicine [address] [place] [address] ProviderZion MD [address] [place] [address] Social History Tobacco Use Types [...] - Zion ProviderMD - 03/29/2018 11:59 PM MANAGER PLANT Patient: ETHAN CRONIN Age: 57 years Sex: [...] At Bedtime Rocephin 2 Gram, IV Piggyback, [id number]...until 05/04/18 for 6 weeks ID recommendations: continue Rocephin 2 g IV every 12 hours to continue until 05/04/18 for 6 weeks. Then may suppress afterwards with penicillin VK 250 mg by mouth twice a day for life. Follow up: ======= Follow up with PCP in 1-2 wks Follow up with Cardiology in 2-4 wks RBOCK in 4-[address] Alan at [facility]. follow up with ID in 2 weeks post discharge. follow up with CTS in 4 wks Disposition: ======== Rehab Discharge Summary: 57-year-old white female with history of bladder cancer, atrial flutter, pacemaker placement 2016, hypertension, DM2, COPD, pancreatitis, who recently had blood cultures obtained at [facility] on 03/19/18 for fever which were positive in 4 out of 4 bottles for group B Streptococcus. Patient was to start IV antibiotics but was found to have bradycardia and was admitted to [facility] on 03/23/17. Urine culture obtained at [facility] was positive for multiple bacteria [...]
--- OUTSIDE RECORDS SUMMARY | 2024-12-21 08:58 | XMS_ITS | Encounter Summary ---
Author Organization [employer] ([place], [place], [place], [place], [place]) Address [address] [place] [address] Care Team Providers Care Cytotechnologist/Cytology Supervisor Name Role Phone Unavailable Primary Care Provider Unavailabl e Encounter Details Date Type Department Care Team (Late st Contact Info) Description 03/23/2018 Transcribed Document [facility] [place] Family Medicine [address] [place] [address] ProviderZion MD [address] [place], [place] [id number] Social History Tobacco Use Types Packs/Day Years Used Date Smoking Tobacco: Never Assessed Comments Unknown Sex and Gender Information Value Date Recorded Sex Assigned at Not on file Legal Sex Female 4:39 PM CDT Gender Identity Not on file Sexual Orientation Not on file documented as of this encounter Miscellaneous Notes * Cerner Conversion Note - Historical ProviderMD - 03/23/2018 9:00 AM TERRITORY DEVELOPMENT MANAGER Consult Phone Call Documentation Entered On: 03/23/2018 [...]
--- OUTSIDE RECORDS SUMMARY | 2024-12-21 08:58 | XMS_ITS | Encounter Summary ---
Author Organization [employer] ([place], [place], [place], [place], [place]) Address [address] [place] [address] Care Team Providers Care Hacksaw Inspector Name Role Phone Unavailable Primary Care Provider Unavailabl e Encounter Details Date Type Department Care Team (Late st Contact Info) Description 03/23/2018 Transcribed Document [facility] [place] [address] [place] [address] ProviderZion MD [address] [place], [place] [id number] Social History Tobacco Use Types Packs/Day Years Used Date Smoking Tobacco: Never Assessed Comments Unknown Sex and Gender Information Value Date Recorded Sex Assigned at Not on file Legal Sex Female 4:39 PM CDT Gender Identity Not on file Sexual Orientation Not on file documented as of this encounter Miscellaneous Notes * Cerner Conversion Note - Zion ProviderMD - 03/23/2018 7:32 PM LOOM WINDER TENDER DATE OF ADMISSION: 03/23/2018 PRIMARY CARE PHYSICIAN: [...] has been evaluated there and transferred to [facility]. Patient was at [facility] ER, came in, laying in bed, [...]
[2024-12-21 09:12] LABS: Anion Gap 18.9 mEq/L (5-15); Calcium 9.5 mg/dl (8.4-10.2); Carbon Dioxide 21 mmol/L (22.0-30.0); Chloride 98 mmol/L (98-107); Creatinine,Serum 3.70 mg/dl (0.52-1.04); Estimated Glomerular Filt Rate 12 ml/min (>60); GFR (African American) 15 ML/MIN (>60); Glucose 138 mg/dl (74-100); Potassium 5.9 mmoL/L (3.5-5.1); Sodium 132 mmol/L (136-145)
[2024-12-21 09:34] LABS: Blood Urea Nitrogen 92 mg/dl (7-17)
[2024-12-21 09:46] LABS: Total Cells Counted 100
[2024-12-21 09:48] LABS: Anisocytosis 1+
[2024-12-21 09:49] LABS: Burr Cells 1+; Hypochromasia 1+; Polychromasia 1+
== END 2024-12-21 23:59 | disposition home or self-care (01) ==
PROVIDERS: PCP Family Medicine; Visit Provider Nurse Practitioner Family
DX: D50.0 Iron deficiency anemia secondary to blood loss (chronic) (principal); E78.5 Hyperlipidemia, unspecified
CPT/HCPCS: 36415; 80048; 85007; 85025; 85027

== ENCOUNTER 2024-12-23 08:11 | Outpatient (CLI) | payer MEDICARE, SELFPAY ==
--- OUTSIDE RECORDS SUMMARY | 2024-11-13 10:20 | XMS_ITS | Encounter Summary ---
Author Organization Healthcare Address [address] [place] [place] [address] Care Team Providers Care Telephone Services Sales Representative Name Role Phone Cosme Davis MD Primary Care Provider [phone] Reason for Referral * Consultation (Routine) - Authorized Specialty Diagnoses / Procedures Referred By Yogi tapia Referred To Contact Physical Therapy Diagnoses Pain in pelvis Smiley Negrete PA [address] [facility] [address] [place] [address] Phone: tel: fax: Referral ID Status Reason Start Date Expiration Date Visits Requested Visits Authorized [id number] Authorized Consult and Treat 11/13/2024 05/15/2026 1 1 Reason for Visit * Reason Comments Follow-up Encounter Details Date Type Department Care Team (Late st Contact Info) Description 11/13/2024 11:20 AM EDT Office Visit [facility] [address] 1[address] [place] [address] Paulo Darnell MD [address] [facility] [address] [place] [address] Pain in pelvis (Primary Dx) [...] and Family Not on file 10/13/2024 Attends Muslim Services Not on file 10/13 Active Member [...] any time in the past 12 m [facility], were you homeless or living in a group home (including now)? No 10/13/2024 [facility] Utilities Answer Date Recorded In the past 12 months has [employer], gas, oil, or water [employer] threatened to shut off services in your [...] follow up. She has been in a [facility] facility. She has been working with physical [...] by mouth daily., Disp: , Rfl: HYDROcodone-acetaminophen ([place]) 5-325 MG tablet, , Disp: , Rfl: [...] 01/21/2025 1:30 PM EST Appointment [facility] [address] [place] [address] 01/21/2025 2:00 PM EST Appointment [facility] [address] [place] [address] 01/21/2025 2:40 PM EST [facility] [address] [place] [address] Jose Rosario MD [address] [place] [address] Scheduled Referrals Name Type Priority [...] documented as of this encounter Care Teams Telephone Services Sales Representative Relationship Specialty Start Date End Date Cosme Davis MD [address] [place] [address] PCP - General 06/24/20 documented as of this encounter
--- OUTSIDE RECORDS SUMMARY | 2024-11-13 10:23 | XMS_ITS | Encounter Summary ---
Author Organization Healthcare Address [address] [place] [address] Care Team Providers Care Consulting Services Manager Name Role Phone Cosme Davis MD Primary Care Provider [phone] Encounter Details Date Type Department Care Team (Latest Contact Info) Description 11/13/2024 11:23 AM EDT - 11/13/2024 11:59 PM EDT Hospital Encounter [place] [facility] [address], 1st [place] [address] Pain in pelvis Discharge Disposition: Home or Self Care Social History Tobacco Use Types Packs/Day Years Used Date Smoking Tobacco: Every Day Cigarettes Smokeless Tobacco: Never Alcohol Use Standard Drinks/Week Comments Not Currently [...] and Family Not on file 10/13/2024 Attends Synagogue Services Not on file 10/13 Active Member [...] any time in the past 12 m [facility], were you homeless or living in a penitentiary (including now)? No 10/13/2024 [facility] Utilities Answer Date Recorded In the past 12 months has th e [employer], gas, oil, or water company threatened to shut off services in your home? No 10/13/2024 Comments Unknown Sex and Gender Information Value Date Recorded Sex Assigned at Not on file Legal Sex Female 8:26 PM EDT Gender Identity Not on file Sexual Orientation Not on file documented as of this encounter Medications at Time of Discharge albuterol (Proventil) (2.5 MG/3ML) 0.083% nebulizer solution INHALE THREE (3) ML (1 VIAL) THREE (3) TIMES A DAY BY NEBULIZATION ROUTE NEEDED FOR 30 DAYS, FOR SHORTNESS OF BREATH. 02/13/2024 albuterol 108 (90 Base) MCG/ACT inhaler Inhale 2 puffs 4 times a day. amiodarone (Pacerone) 200 MG tablet Take 2 tablets by mouth daily. apixaban (Eliquis) 5 MG tablet Take 1 tablet by mouth 2 times a day. Aspirin Low Dose 81 MG EC tablet 01/16/2024 atorvastatin (Lipitor) 40 MG tablet Take 1 tablet by mouth daily. 03/19/2019 citalopram (CeleXA) 20 MG tablet Take 1 tablet by mouth daily. 11/21/2020 clopidogrel (Plavix) 75 MG tablet Take 1 tablet by mouth daily. 08/21/2018 HYDROcodone-acet aminophen ([place]) 5-325 MG tablet 11/02/2024 insulin glargine (Lantus) 100 UNIT/ML injection vial Inject 10 Units under the skin nightly. insulin lispro (Admelog, HumaLOG) 100 UNIT/ML injection pen Inject 1-10 Units under the skin 3 times a day with meals. Insulin Lispro (Admelog, HumaLOG) 100 UNIT/ML injection vial INJECT DIRECTED PER SLIDING SCALE VIA INSULIN PUMP TO MAXIMUM OF 80 UNITS PER DAY 07/21/2024 insulin syringe-needle U-100 31G X 5/16 1 mL misc 12/23/2023 Lantus SoloStar 100 UNIT/ML injection pen 10/30/2024 levothyroxine (Synthroid, Levoxyl) 25 MCG tablet Take by mouth daily. 08/21/2018 midodrine (Proamatine) 10 MG tablet Take 1 tablet by mouth every 12 hours. 10/30/2024 mirtazapine (Remeron) 15 MG tablet Take 1 tablet by mouth nightly. 10/30/2024 ondansetron (Zofran) 4 MG tablet Take 1 tablet by mouth every 6 hours as needed for nausea or vomiting. pantoprazole (Protonix) 40 MG EC tablet Take 1 tablet by mouth daily before breakfast. Do not crush, chew, or split. penicillin V (Veetid) 250 MG tablet 11/10/2024 rOPINIRole (Requip) 1 MG tablet Take 1 tablet by mouth nightly. thiamine (Vitamin B-1) 100 MG tablet Take 1 tablet by mouth daily. 10/31/2024 ALPRAZolam (Xanax) 0.25 MG tablet Take 1 tablet by mouth 2 times a day as needed for anxiety. 30 tablet 10/30/2024 folic acid (Folvite) 1 MG tablet Take 1 tablet by mouth daily. 10/31/2024 documented as of this encounter Plan of Treatment Upcoming Encounters Date Type Department Care Team (Late st Contact Info) Description 01/21/2025 1:30 PM EST Appointment [facility] [address] Floor [address], [address] [place] [address] 01/21/2025 2:00 PM EST Appointment [facility] [address] Floor [address], [address] [place] [address] 01/21/2025 2:40 PM EST Office Visit [facility] [address], [address] [place] [address] Jose Rosario MD [address] [facility] [address] [place] [address] documented as of this encounter Procedures Procedure Name Priority Date/Time Associated Diagnosis Comments XR PELVIS 3+ VIEWS Routine 11/13/2024 12 :00 PM EDT Pain in pelvis documented in this encounter Results * XR Pelvis 3+ [...] Kunz MD on 11/13/2024 12:21 PM Paulo Marquis MD IMG XR PROCEDURES Final Resu lt documented in this encounter Visit Diagnoses Diagnosis Pain in pelvis documented in this encounter Additional Health Concerns 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
--- OUTSIDE RECORDS SUMMARY | 2024-12-23 08:15 | XMS_ITS | Encounter Summary ---
Author Organization Healthcare Address [address] [place] [address] Care Team Providers Care Selector Packer Name Role Phone Cosme Davis MD Primary Care Provider [phone] Encounter Details Date Type Department Care Team [...] and Family Not on file 10/13/2024 Attends [employer] Not on file 10/13 Active Member [...] in the past [address] [facility], were you homeless or living in a chcf (including now)? No 10/13/2024 [facility] Utilities Answer Date Recorded In [...] Info) Description 01/21/2025 1:30 PM EST Appointment [facility] [address] [place] [address] 01/21/2025 2:00 PM EST Appointment [facility] [address] [place] [address] 01/21/2025 2:40 PM EST Office Visit [facility] [address] [place] [address] Jose Rosario MD [address] [place] [address] documented as of this encounter [...] documented as of this encounter Care Teams Selector Packer Relationship Specialty Start Date End Date Cosme Davis MD [address] [place] [address] PCP - General 06/24/20 documented as of this encounter
--- OUTSIDE RECORDS SUMMARY | 2024-12-23 08:16 | XMS_ITS | Clinical Summary ---
Author Organization [facility] Address [address] [place] [address] Phone Care Team Providers Care Dean Of Faculty Name Role Phone Kar RAJPUT, Willa Molina Unavailable Conditions or Problems Problem Name Problem Code Onset Date Status Entry Date Provider Comment Standard Description Annotate Other obesity due to excess calories 730602074 (SNOMED CT) 06/03 Active 06/03 Sharona Annamaria Simple obesity Nicotine dependence 68637461 (SNOMED CT) 06/03 Active 06/03 Sharona Yin Nicotine dependence Coronary artery disease, S/P CABG 15373516 (SNOMED CT) 04/11 Active 04/11 Elvira Beth Coronary arteriosclerosis ARF due to infection 114962594 (SNOMED CT) 04/11 Active 04/11 Elvira Beth Acute renal failure due to ischemia Heart valve prosthesis, infection/inf lammatory reaction, subsequent encounter T82.6xxD (ICD-10-CM ) 04/11 Active 04/11 Elvira Beth 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, subsequent encounter Acute and subacute bacterial endocarditis 288595302 (SNOMED CT) 04/11 Active 04/11 Elvira Beth Acute and subacute bacterial endocarditis Group B strep sepsis A40.1 (ICD-10-CM ) 04/11 Active 04/11 Elvira Beth Sepsis due to streptococcus, group B DM Type II 02273453 (SNOMED CT) 04/11 Active 04/11 Elvira Beth Type 2 diabetes mellitus Hypoalbuminem ia 202595855 (SNOMED CT) 04/11 Active 04/11 Elvira Beth Hypoalbuminemia Medications Medication Instructions Start Date Stop Date Generic Name NDC Provider CEFTRIAXONE SODIUM 2 GM SOLR 2gm IV Q12hrs/ [facility] [phone] Plan to start at [facility] 04/18/18 to do 2xper day infusion. CEFTRIAXONE SODIUM 32476099593 Frida Morales PENICILLIN V POTASSIUM 250 MG TABS 1 by mouth twice a day for life PENICILLIN V POTASSIUM 83691498238 Gama Diaz MD PENICILLIN V POTASSIUM 250 MG/5ML SOLR 1 by mouth twice a day 30 days PENICILLIN V POTASSIUM 78152075214 Edie Hooks RN PENICILLIN V POTASSIUM 250 MG TABS 1 by mouth twice a day 30 days PENICILLIN V POTASSIUM 50353919643 Edie Hooks RN PENICILLIN V POTASSIUM 250 MG/5ML SOLR 1 by mouth twice a day 30 days PENICILLIN V POTASSIUM 82271048757 Gama Diaz MD PENICILLIN V POTASSIUM 250 MG TABS 1 by mouth twice a day 30 days PENICILLIN V POTASSIUM 99517832117 Gama Diaz MD CARDIZEM 120 MG TABS 1 tab once daily DILTIAZEM HCL 64315970369 Tahira Lucero VITAMIN D (CHOLECALCIFEROL ) 25 MCG (1000 UT) CAPS as instructed CHOLECALCIFEROL 93320139843 Tahira Lucero CEFTRIAXONE SODIUM 2 GM SOLR 2gm IV Q12hrs/ [facility] [phone] Plan to start at [facility] 04/18/18 to do 2xper day infusion. CEFTRIAXONE SODIUM 60465483067 Willa Lakhani RN PRAVASTATIN SODIUM 20 MG TABS Take one by mouth daily PRAVASTATIN SODIUM 14742699065 Garima Restrepo PLAVIX 75 MG TABS Take one by mouth daily CLOPIDOGREL BISULFATE 63642771344 Garima Restrepo NOVOLIN 70/30 (70-30) 100 UNIT/ML SUSP 20 units in AM, 10 units in PM INSULIN NPH ISOPHANE & REGULAR 80705442040 Garima Restrepo [facility] NICOTINE 21 MG/24HR PT24 1 patch daily NICOTINE 49970612564 Garima Floriandox LEVOTHYROXINE SODIUM 25 MCG TABS Take one by mouth daily LEVOTHYROXINE SODIUM 29179524765 Garima Floriandox HUMALOG 100 UNIT/ML SUBCUTANEOUS SOLUTION sliding scale INSULIN LISPRO 60909993082 Garima Floriandox GABAPENTIN 300 MG CAPS Take one by mouth daily GABAPENTIN 98090061337 Garima Floriandox FLORASTOR 250 MG CAPS Take one by mouth daily SACCHAROMYCES BOULARDII 06418827202 Garima Floriandox CELEXA 20 MG TABS Take one by mouth daily CITALOPRAM HYDROBROMIDE 73305372589 Garima Floriandox CARVEDILOL 3.125 MG TABS Take one by mouth daily CARVEDILOL 85360820593 Garima Lazarox ADULT ASPIRIN REGIMEN 81 MG ORAL TABLET DELAYED RELEASE Take one by mouth daily ASPIRIN 38958395283 Garima Lazarox AMBIEN 5 MG TABS Take/use as needed. ZOLPIDEM TARTRATE 32260183006 Garima Floriandox ALPRAZOLAM 0.5 MG TABS Take one by mouth 3 times daily, morning, afternoon and evening. ALPRAZOLAM 25390822725 Garima Floriandox CEFTRIAXONE SODIUM 2 GM SOLR 2gm IV Q24hrs/ [place] [phone] CEFTRIAXONE SODIUM 09275420593 Edie Hooks RN Medications Administered No information [...] [Ratio] by Automated count Lab Report: COMPREHENSIVE OR TABOLIC PANEL GFRC 47 mL/min/1 .73m2 >60 L Glomerular Filtration Rate Calculation Office Visit: Room 3 MEDS REVIEW Done Documenta tion of current medications (procedure) DIET BURGLAR ALARM INSTALLER yes Dietary management education, guidance, and counseling (procedure) ORALTOBACUSE Never Tobacco smoking status SMOK STATUS Current every day smoker Tobacco smoking status Lab Report: COMPREHENSIVE OR TABOLIC PANEL, MISCELLANEOUS REFERRAL, SED R ... [...] reactive protein [Mass/volume] in Serum or Plasma [employer] C-REACTIVE PROTEIN N GE use only - [...] Date CPT-Cooral Continue oral antibiotics 20 02/03/14 CPT-59281 CMP [id number] CBC with Differential 2019 CPT-92302 C- reactive protein CPT-sl STAT Labs CPT-80550 [facility] [id number] CBC with Differential 2018 CPT-04525 C- reactive protein CPT-Cooral Continue oral antibiotics 20 30/08/23 CPT-13275 CMP [id number] CBC with Differential 2018 CPT-59139 C- reactive protein CPT-Cooral Continue oral antibiotics 20 31/05/23 CPT-PICREM PICC Removal CPT-DC Discontinue IV antibiotics 2 CPT-jodi New Oral Antibiotic CPT-ca Continue IV antibiotics 2018 CPT-84766 CMP [id number] CBC with Differential 2018 CPT-36241 C- reactive protein Vital Signs Date Name [...]
--- OUTSIDE RECORDS SUMMARY | 2024-12-23 08:17 | XMS_ITS | Clinical Summary ---
Author Organization [facility] Address [facility] [place] [address] Care Team Providers Care Supervisor Putty And Caluking Name Role Phone Pcp, No Primary Care Provider [phone] Source Comments This information has been disclosed [...] therelease of HIV test results or diagnoses. [id number] Allergies No known active allergies Medications [...] drink = 0.6 oz pur e alcohol) [facility] Utilities Answer Date Recorded In the past 12 months has e [employer], gas, oil, or water [employer] threatened to shut off services in your [...] any time in the past 12 m [facility], were you homeless or living in a chcf (including now)? No 03/05/2024 Comments Unknown Sex [...] ORDERABLES Fin al Result Performing Organization Address [facility] Co de Phone Number [facility] [address] [facility] [address] * Protein / creatinine ratio, urine (03/07/2024 11:26 PM EST) Creatinine, Urine 28.30 mg/dL 03/07/2024 11:52 PM EST [facility] Comment:Reference range not established for this test. Total Protein, Ur 52 mg/dL 03/07/2024 11:52 PM EST [facility] Comment:Reference range not established for this test. Prot/Creat Ratio, Ur 1.84 ratio 03/07/2024 11:52 PM EST [facility] Urine 03/07/2024 11:2 6 PM EST 03/07/2024 11:36 PM EST Tate Castro MD URINE ORDERABLES Final R esult Performing Organization Address [facility] Co de Phone Number [facility] [address] [facility] [address] [facility] * (ABNORMAL) Thyroid Function [place] (03/06/2024 1:44 PM EST) TSH 6.15(H) 0.45 - 4.12 uIU/mL 03/06/2024 2:33 PM EST [facility] Serum 03/06/2024 1:44 PM EST 03/06/2024 1:50 PM EST us Angelo Chaudhry CNP LAB BLOOD ORDERABLES Final Result Performing Organization Address [facility]/State/[facility] Co de Phone Number [facility] [address] [facility]. [address] * (ABNORMAL) Hemoglobin A1c (03/06/2024 5:42 AM EST) Hemoglobin A1C 6.4(H) 4.0 - 5.6 % 03/06/2024 1:13 PM EST [facility] Comment: Hemoglobin A1c Interpretation Guidelines: Normal: [...] ORDERABLES Bindu l Result Performing Organization Address City/[facility] Co de Phone Number [facility] [address] [facility] 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
--- OUTSIDE RECORDS SUMMARY | 2024-12-23 08:17 | XMS_ITS | Clinical Summary ---
Author Organization [facility] Address [address] [place] [address] Care Team Providers Care Land Appraiser Name Role Phone Cosme Davis MD Primary Care Provider [phone] Allergies No known active allergies Medications * [...] MG EC tablet 4 Active HYDROcodone-ac etaminophen (Mcdavid) 5-325 MG tablet 5 Active insulin syringe-needle [...] - 11/13/2024 11:59 PM EDT Hospital Encounter [facility] Radiology [address] 1[address] [place] [address] Pain in pelvis Discharge Disposition: Home or Self Care 11/13/2024 11:20 AM EDT Office Visit [facility] Orthopaedic Surgery & Sports Medicine [address], 1st [address] [place] [address] Paulo Marquis MD Pain in pelvis (Primary Dx) 11/13/2024 Travel 10/19/2024 Travel 10/18/2024 Travel 10/16/2024 Travel 10/14/2024 Travel 10/13/2024 Travel 10/12/2024 Orders Only External Location [address] [place] [id number] Tito Madrid MD 10/12/2024 Orders Only External Location [address] [place] [phone] Tito Madrid MD 10/12/2024 Orders Only External Location [address] [place] [address] Tito Madrid MD 10/12/2024 Travel [...] and Family Not on file 10/13/2024 Attends [employer] Not on file 10/13 Active Member [...] time in the past 12 m [facility], were you homeless or living in a [place] health care facility (including now)? No 10/13/2024 [place] Utilities Answer Date Recorded In the past 12 months has [facility] electric, gas, oil, or water company [...] Info) Description 01/21/2025 1:30 PM EST Appointment [facility] Vascular Lab [address] [facility] 5th Floor Wing [address], [address] [place] [address] 01/21/2025 2:00 PM EST Appointment [facility] Vascular Lab [address] Floor [address], [address] [place] [address] 01/21/2025 2:40 PM EST Office Visit [facility] Comprehensive Vascular Clinic [address] [facility] 5th Floor Wing [address], [address] [place] [address] Jose Rosario MD [address] [facility] [address] [place] [address] Health Maintenance Due Date Last Done Comments [facility]-Depression Screening 1960 [facility]-Medicare Annual Wellness (AWV) 1960 [facility]-/Child/Adol SDOH Screenings 1960 [id number] Vaccine (#1) 06/04/1967 Diabetes: Dental Exam 1972 [...] HORMONE (ACTH) Routine 10/16/2024 8:11 AM EDT [facility] CRITICAL CARE, E/M 30-74 MINUTES Routine 10/16/2024 6:41 AM EDT Closed fracture of ramus of right pubis, initial encounter ([facility]) Shock ([facility]) Essential hypertension Complex medical condition POCT [...] EDT CORTISOL Routine 10/15/2024 8:29 AM EDT [facility], E/M 30-74 MINUTES Routine 10/15/2024 [...] KNOWN SYPHILIS) Routine 10/14/2024 9:44 AM EDT [facility]IT[facility] CARE, E/M 30-74 MINUTES Routine 10/14/2024 8:59 AM EDT Closed fracture of ramus of right pubis, initial encounter ([facility]) Shock (CMS/[facility]) XR CHEST 1 VIEW STAT 10/14/2024 [...] Routine 10/13/2024 9:26 AM EDT Shock (CMS/HCC) OH INSERT NON-TUNNEL CV CATH Routine 10/13/2024 9:26 AM EDT Shock (CMS/HCC) XR CHEST 1 VIEW STAT 10/13/2024 9:25 AM EDT HC INSERT CATH,ART,PERCUT,SHORTTERM Routine 10/13/2024 9:09 AM EDT Shock (CMS/HCC) OH INSERT CATH,ART,PERCUT,SHORTTERM Routine 10/13/2024 9:09 AM EDT [...] resultswithin the time period is included. Pathologist [facility] POCT Glucose 251(H) 74 - 99 mg/dL [...] Comment 10/30/2024 12:01 PM EDT HEALTHCARE LAB Extension Service Specialist In Charge ID Jessika Schneider [id number] 12:01 PM EDT HEALTHCARE LAB Device ID [id number] 10/30/2024 12:01 PM EDT HEALTHCARE LAB Specimen Type POC Capillary 10/30/2024 12:01 PM EDT [facility]ALTH[facility]ARE LAB Blood Capillary blood specimen / Unknown 10/30/2024 11:58 AM EDT 10/30/2024 12:01 PM EDT us Tiffany Patten DO LAB POINT OF CARE TE ST DOCKED DEVICE UNSOLICITED RESULTS Final Result [facility] [address] [place] [address] * (ABNORMAL) CBC W/O Differential (10/28/2024 3:43 AM EDT) Only the most recent of4 resultswithin the time period is included. Pathologist [facility] WBC Count 9.69 3.70 - 10.30 10*3/uL LAB HEMATOLOGY METHOD 10/28/2024 4:21 AM EDT HEALTHCARE LAB RBC Count 2.95(L) 3.90 - 5.20 10*6/uL LAB HEMATOLOGY METHOD 10/28/2024 4:21 AM EDT [facility] HGB 8.3(L) 11.2 - 15.7 g/dL LAB HEMATOLOGY METHOD 10/28/2024 4:21 AM EDT [facility] HCT 27.0(L) 34.0 - 45.0 % LAB HEMATOLOGY METHOD 10/28/2024 4:21 AM EDT [facility] Platelet Count 363 155 - 369 10*3/uL LAB HEMATOLOGY METHOD 10/28/2024 4:21 AM EDT [facility] MCV 92 79 - 98 fL LAB HEMATOLOGY METHOD 10/28/2024 4:21 AM EDT [facility] MCH 28.1 26.0 - 32.0 pg LAB HEMATOLOGY METHOD 10/28/2024 4:21 AM EDT [facility] MCHC 30.7 30.7 - 35.5 g/dL LAB HEMATOLOGY METHOD 10/28/2024 4:21 AM EDT [facility] RDW 24.8(H) 11.5 - 14.5 % LAB HEMATOLOGY METHOD 10/28/2024 4:21 AM EDT [facility] MPV 11.9 8.8 - 12.5 fL LAB HEMATOLOGY METHOD 10/28/2024 4:21 AM EDT [facility] nRBC 0.0 <=0.0 per 100 WBCs LAB HEMATOLOGY METHOD 10/28/2024 4:21 AM EDT [facility] Blood Venous blood specimen / Unknown Venipuncture / Unknown 10/28/2024 3:43 AM EDT 10/28/2024 4:13 AM EDT us Tiffany Patten DO LAB BLOOD ORDERABLES Final Re sult [facility] [address] [place] [address] * Magnesium, Plasma (10/28/2024 3:43 AM EDT) Only the most recent of5 resultswithin the time period is included. Magnesium, Plasma 2.2 1.9 - 2.4 mg/dL 10/28/2024 4:42 AM EDT [facility] Blood Venous blood specimen / Unknown Venipuncture / Unknown 10/28/2024 3:43 AM EDT 10/28/2024 4:13 AM EDT us Tiffany Patten DO LAB BLOOD ORDERABLES Final Re sult [facility]ALTHCARE LAB [address] [place] [address] * (ABNORMAL) Renal Function Panel, Plasma (10/28/2024 3:43 AM EDT) Glucose, Plasma 276(H) 74 - 99 mg/dL 10/28/2024 4:42 AM EDT [facility] BUN, Plasma 89(H) 8 - 23 mg/dL 10/28/2024 4:42 AM EDT [facility] Creatinine, Plasma 2.19(H) 0.60 - 1.10 mg/dL 10/28/2024 4:42 AM EDT [facility] BUN/Creatinine Ratio 41 10/28/2024 4:42 AM EDT [facility] Sodium, Plasma 138 136 - 145 mmol/L 10/28/2024 4:42 AM EDT [facility] Potassium, Plasma 5.1(H) 3.6 - 4.9 mmol/L 10/28/2024 4:42 AM EDT [facility] Chloride, Plasma 102 97 - 107 mmol/L 10/28/2024 4:42 AM EDT [facility] CO2, Plasma 25 22 - 29 mmol/L 10/28/2024 4:42 AM EDT [facility] Anion Gap 11 6 - 16 mmol/L 10/28/2024 4:42 AM EDT [facility] Total Calcium, Plasma 8.9 8.9 - 10.2 mg/dL 10/28/2024 4:42 AM EDT [facility] Phosphorus, Plasma 2.8 2.5 - 4.5 mg/dL 10/28/2024 4:42 AM EDT [facility] Albumin, Plasma 3.0(L) 3.5 - 5.2 g/dL 10/28/2024 4:42 AM EDT [facility] eGFRcr 24.9 mL/min/1.7 3m*2 10/28/2024 4:42 AM EDT [facility] Comment:Reported eGFRcr in m L/min/1.73m2 is based the CKD-EPI 2020 equation that does not use a race coefficient. Blood Venous blood specimen / Unknown Venipuncture / Unknown 10/28/2024 3:43 AM EDT 10/28/2024 4:13 AM EDT Tiffany Patten DO LAB BLOOD ORDERABLES Final Re sult [facility]ARE [facility] [address] [place] [address] * (ABNORMAL) CBC and differential (10/26/2024 9:19 AM EDT) Only the most recent of11 resultswithin the time period is included. WBC Count 9.12 3.70 - 10.30 10*3/uL LAB HEMATOLOGY METHOD 10/26/2024 9:25 AM EDT [facility] RBC Count 3.03(L) 3.90 - 5.20 10*6/uL LAB HEMATOLOGY METHOD 10/26/2024 9:25 AM EDT [facility] HGB 8.5(L) 11.2 - 15.7 g/dL LAB HEMATOLOGY METHOD 10/26/2024 9:25 AM EDT [facility] HCT 27.1(L) 34.0 - 45.0 % LAB HEMATOLOGY METHOD 10/26/2024 9:25 AM EDT [facility] Platelet Count 331 155 - 369 10*3/uL LAB HEMATOLOGY METHOD 10/26/2024 9:25 AM EDT [facility] MCV 89 79 - 98 fL LAB HEMATOLOGY METHOD 10/26/2024 9:25 AM EDT [facility] MCH 28.1 26.0 - 32.0 pg LAB HEMATOLOGY METHOD 10/26/2024 9:25 AM EDT [facility] MCHC 31.4 30.7 - 35.5 g/dL LAB HEMATOLOGY METHOD 10/26/2024 9:25 AM EDT [facility] RDW 24.6(H) 11.5 - 14.5 % LAB HEMATOLOGY METHOD 10/26/2024 9:25 AM EDT [facility] MPV 11.4 8.8 - 12.5 fL LAB HEMATOLOGY METHOD 10/26/2024 9:25 AM EDT [facility] nRBC 0.0 <=0.0 per 100 WBCs LAB HEMATOLOGY METHOD 10/26/2024 9:25 AM EDT [facility] Differential Type Automated LAB HEMATOLOGY METHOD 10/26/2024 9:25 AM EDT [facility] Neutrophils % 76 % LAB HEMATOLOGY METHOD 10/26/2024 9:25 AM EDT [facility] Lymphocytes % 13 % LAB HEMATOLOGY METHOD 10/26/2024 9:25 AM EDT [facility] Monocytes % 7 % LAB HEMATOLOGY METHOD 10/26/2024 9:25 AM EDT [facility] Eosinophils % 3 % LAB HEMATOLOGY METHOD 10/26/2024 9:25 AM EDT [facility] Basophils % 1 % LAB HEMATOLOGY METHOD 10/26/2024 9:25 AM EDT [facility] Immature Granulocytes % 0 % LAB HEMATOLOGY METHOD 10/26/2024 9:25 AM EDT [facility] Neutrophils Absolute 6.90(H) 1.60 - 6.10 10*3/uL LAB HEMATOLOGY METHOD 10/26/2024 9:25 AM EDT [facility] Lymphocytes Absolute 1.22 1.20 - 3.90 10*3/uL LAB HEMATOLOGY METHOD 10/26/2024 9:25 AM EDT [facility] Monocytes Absolute 0.60 0.30 - 0.90 10*3/uL LAB HEMATOLOGY METHOD 10/26/2024 9:25 AM EDT [facility] Eosinophils Absolute 0.31 0.00 - 0.50 10*3/uL LAB HEMATOLOGY METHOD 10/26/2024 9:25 AM EDT [facility] Basophils Absolute 0.05 0.00 - 0.10 10*3/uL LAB HEMATOLOGY METHOD 10/26/2024 9:25 AM EDT [facility] Immature Granulocytes Absolute 0.04 0.00 - 0.06 10*3/uL LAB HEMATOLOGY METHOD 10/26/2024 9:25 AM EDT HEALTHCARE LAB Blood Venous blood specimen / Unknown Venipuncture / Unknown 10/26/2024 9:19 AM EDT 10/26/2024 9:23 AM EDT [facility] - 10/26/2024 9:25 AM EDT Therapeutic decision making should be based on absolute values, rather than percentages. us Yuriy Lockett MD LAB BLOOD ORDERABLES Final Resul t [facility]ARE [facility] [address] [place], [place] [id number] * (ABNORMAL) Basic metabolic panel (10/26/2024 9:19 AM EDT) Only the most recent of10 resultswithin the time period is included. Glucose, Plasma 244(H) 74 - 99 mg/dL 10/26/2024 9:49 AM EDT [facility] BUN, Plasma 76(H) 8 - 23 mg/dL 10/26/2024 9:49 AM EDT [facility] Creatinine, Plasma 1.97(H) 0.60 - 1.10 mg/dL 10/26/2024 9:49 AM EDT [facility] BUN/Creatinine Ratio 39 10/26/2024 9:49 AM EDT [facility] Sodium, Plasma 138 136 - 145 mmol/L 10/26/2024 9:49 AM EDT [facility] Potassium, Plasma 5.0(H) 3.6 - 4.9 mmol/L 10/26/2024 9:49 AM EDT [facility] Chloride, Plasma 102 97 - 107 mmol/L 10/26/2024 9:49 AM EDT [facility] CO2, Plasma 25 22 - 29 mmol/L 10/26/2024 9:49 AM EDT [facility] Anion Gap 11 6 - 16 mmol/L 10/26/2024 9:49 AM EDT [facility] Total Calcium, Plasma 8.7(L) 8.9 - 10.2 mg/dL 10/26/2024 9:49 AM EDT [facility] eGFRcr 28.3 mL/min/1.7 3m*2 10/26/2024 9:49 AM EDT [facility] Comment:Reported eGFRcr in m L/min/1.73m2 is based the CKD-EPI 2020 equation that does not use a race coefficient. Blood Venous blood specimen / Unknown Venipuncture / Unknown 10/26/2024 9:19 AM EDT 10/26/2024 9:23 AM EDT us Yuriy Lockett MD LAB BLOOD ORDERABLES Final Resul t [facility] [address] [place] [address] * (ABNORMAL) Hemoglobin and Hematocrit, Blood (10/25/2024 12:23 PM EDT) Only the most recent of11 resultswithin the time period is included. HGB 8.1(L) 11.2 - 15.7 g/dL LAB HEMATOLOGY METHOD 10/25/2024 12:30 PM EDT [facility] HCT 25.4(L) 34.0 - 45.0 % LAB HEMATOLOGY METHOD 10/25/2024 12:30 PM EDT [facility] Blood Venous blood specimen / Unknown Venipuncture / Unknown 10/25/2024 12:23 PM EDT 10/25/2024 12:27 PM EDT us Yuriy Lockett MD LAB BLOOD ORDERABLES Final Resul t Performing Organization Address City/[facility] de Phone Number [facility] [address] [place] [address] * (ABNORMAL) Potassium (10/23/2024 10:26 AM EDT) Only the most recent of3 resultswithin the time period is included. Potassium, Plasma 5.2(H) 3.6 - 4.9 mmol/L 10/23/2024 10:53 AM EDT [facility] Blood Venous blood specimen / Unknown Venipuncture / Unknown 10/23/2024 10:26 AM EDT 10/23/2024 10:33 AM EDT us Yuriy Lockett MD LAB BLOOD ORDERABLES Final Resul t Performing Organization Address City/[facility] Co de Phone Number [facility] [address] [place] [address] * ECG Adult (10/23/2024 8:22 AM EDT) Only the most recent of4 resultswithin the time period is included. EKG DIAGNOSIS CLASS Abnormal MUSE ECG Ventricular Rate 85 BPM MUSE ECG QRSD Interval 94 ms MUSE ECG QT Interval 378 ms MUSE ECG QTC Interval 449 ms MUSE ECG R [place] 23 degrees MUSE ECG T Wave [place] 124 degrees MUSE ECG Diagnosis Atrial fibrillation [...] 7:08 PM EDT us Yuriy Lockett MD [facility] BLOOD BANK TEST ORDERABLES F inal Result Performing Organization Address City/[facility]/ZIP Co de Phone Number BLOOD BANK [address] [place] [address], [place] * Antibody Identification (10/22/2024 7:04 PM EDT) Only the most recent of3 resultswithin the time period is included. Antibody ID Anti-E Non-specif ic Patricia 10/22/2024 8:04 PM EDT BLOOD BANK Blood Venous blood specimen / Unknown Venipuncture / Unknown 10/22/2024 7:04 PM EDT 10/22/2024 7:08 PM EDT us Yuriy Lockett MD [facility] BLOOD BANK TEST ORDERABLES F inal Result Performing Organization Address City/[facility]/ZIP Co de Phone Number BLOOD [facility] [address] [place] [address], [place] * (ABNORMAL) Type and screen (10/22/2024 [...] 10/22/2024 7:08 PM EDT Yuriy Lockett MD [facility] BLOOD BANK TEST ORDERABLES F inal Result Performing Organization Address [facility] de Phone Number BLOOD BANK [address] [place] [address], [place] * Prepare Leukocyte Reduced RBC: 1 Units (10/22/2024 5:02 PM EDT) Only the most recent of3 resultswithin the time period is included. [facility] Signature Product Code [id number] BLOO D BANK Dispense Status Transfused BLOOD BANK Blood Expiration Date [id number] BLOOD BANK Unit Number [id number] B LOOD BANK Product Blood Type 5100 BLOOD BANK Blood Type O+ BLOOD BANK Crossmatch Compatible BLOOD BANK Other Yuriy Lockett MD BLOOD BANK PRODUCT ORDERABLES Fi nal Result Performing Organization Address [facility] de Phone Number BLOOD BANK [address] [place] [address], [place] * XR Knee Right 3 Views [...] - 4.5 mg/dL 10/17/2024 1:43 AM EDT [facility] Blood Venous blood specimen / Unknown Venipuncture / Unknown 10/17/2024 1:04 AM EDT 10/17/2024 1:14 AM EDT us Aidan Harrison MD LAB BLOOD ORDERABLES Final Res ult [facility] [address] [place] [address] * (ABNORMAL) Comprehensive metabolic panel (10/17/2024 1:04 AM EDT) Only the most recent of4 resultswithin the time period is included. Glucose, Plasma 138(H) 74 - 99 mg/dL 10/17/2024 1:43 AM EDT [facility] BUN, Plasma 50(H) 8 - 23 mg/dL 10/17/2024 1:43 AM EDT [facility] Creatinine, Plasma 1.74(H) 0.60 - 1.10 mg/dL 10/17/2024 1:43 AM EDT [facility] BUN/Creatinine Ratio 29 10/17/2024 1:43 AM EDT [facility] Sodium, Plasma 141 136 - 145 mmol/L 10/17/2024 1:43 AM EDT [facility] Potassium, Plasma 4.0 3.6 - 4.9 mmol/L 10/17/2024 1:43 AM EDT [facility] Chloride, Plasma 114(H) 97 - 107 mmol/L 10/17/2024 1:43 AM EDT [facility] CO2, Plasma 16(L) 22 - 29 mmol/L 10/17/2024 1:43 AM EDT [facility] Anion Gap 11 6 - 16 mmol/L 10/17/2024 1:43 AM EDT [facility] Total Calcium, Plasma 8.2(L) 8.9 - 10.2 mg/dL 10/17/2024 1:43 AM EDT [facility] Total Protein 5.2(L) 6.3 - 7.9 g/dL 10/17/2024 1:43 AM EDT [facility] Albumin, Plasma 2.9(L) 3.5 - 5.2 g/dL 10/17/2024 1:43 AM EDT [facility] AST, Plasma 15 10 - 35 U/L 10/17/2024 1:43 AM EDT [facility] ALT, Plasma 5(L) 10 - 35 U/L 10/17/2024 1:43 AM EDT [facility] Alkaline Phosphatase, Plasma 85 46 - 142 U/L 10/17/2024 1:43 AM EDT [facility] Total Bilirubin, Plasma 0.2 0.2 - 1.1 mg/dL 10/17/2024 1:43 AM EDT [facility] eGFRcr 32.8 mL/min/1.7 3m*2 10/17/2024 1:43 AM EDT [facility] Comment:Reported eGFRcr in m L/min/1.73m2 is based the CKD-EPI 2020 equation that does not use a race coefficient. Blood Venous blood specimen / Unknown Venipuncture / Unknown 10/17/2024 1:04 AM EDT 10/17/2024 1:14 AM EDT us Aidan Harrison MD LAB BLOOD ORDERABLES Final Res ult [facility] [address] [place] [address] * [place] Modified Barium Swallow (10/16/2024 3:05 [...] sips by the cup or the teaspoon. [place] consistency (IDDSI 2): There is no aspiration [...] sips by the cup or the teaspoon. [place] consistency (IDDSI 2): There is no aspiration [...] analytical performance characteristics have been determined by [employer]. It has not been cleared or approved by the FDA. This assay has been validated pursuant to the CLIA regulations and is used for clinical purposes. Blood Venous blood specimen / Unknown Venipuncture / Unknown 10/16/2024 8:11 AM EDT 10/16/2024 8:22 AM EDT Narrative [facility] ([facility]) ([facility]) - 10/20/2024 12:14 PM EDT Performing Organization Information: Site ID: [id number] Name: [employer] Address: [address] [place] [id number] Director: Enedina Thao MD, PhD Aidan Harrison MD LAB BLOOD ORDERABLES Final Res ult [facility] (BEAKER) [employer] [facility] [address] [place] [address] * (ABNORMAL) ACTH (10/16/2024 8:11 AM EDT) Only the most recent of2 resultswithin the time period is included. ACTH 5.45(L) 7.2 - 63 pg/mL 10/16/2024 11:38 AM EDT [facility] Blood Venous blood specimen / Unknown Venipuncture / Unknown 10/16/2024 8:11 AM EDT 10/16/2024 8:42 AM EDT Aidan Harrison MD LAB BLOOD ORDERABLES Final Res ult Performing Organization Address City/[facility]/ZIP Co de Phone Number [facility] [address] [place] [address] * Folate (10/16/2024 8:11 AM EDT) Folate, Serum 8.2 >4.6 ng/mL 10/16/2024 9:29 AM EDT [facility] Blood Venous blood specimen / Unknown Venipuncture / Unknown 10/16/2024 8:11 AM EDT 10/16/2024 8:34 AM EDT us Aidan Harrison MD LAB BLOOD ORDERABLES Final Res ult [facility] [address] [place] [address] * Ferritin (10/16/2024 8:11 AM EDT) Ferritin, Serum 73 13 - 150 ng/mL 10/16/2024 9:29 AM EDT [facility] Blood Venous blood specimen / Unknown Venipuncture / Unknown 10/16/2024 8:11 AM EDT 10/16/2024 8:34 AM EDT us Aidan Harrison MD LAB BLOOD ORDERABLES Final Res ult Performing Organization Address City/[facility]/ZIP Co de Phone Number [facility] [address] [place] [address] * Vitamin B12 (10/16/2024 8:11 AM EDT) Vitamin B12, Serum 906 210 - 1,033 pg/mL 10/16/2024 9:29 AM EDT [facility] Blood Venous blood specimen / Unknown Venipuncture / Unknown 10/16/2024 8:11 AM EDT 10/16/2024 8:34 AM EDT Aidan Harrison MD LAB BLOOD ORDERABLES Final Res ult Performing Organization Address [facility] [place] [address] * [place] [facility], E/M 30-74 MINUTES (10/16/2024 6:41 [...] - 160 ug/dL 10/16/2024 7:15 AM EDT [facility] Transferrin, Plasma 159(L) 200 - 360 mg/dL 10/16/2024 7:15 AM EDT [facility] Total Iron Binding Capacity, Plasma 199(L) 240 - 450 ug/mL 10/16/2024 7:15 AM EDT [facility] Transferrin Saturation 11(L) 14 - 50 % 10/16/2024 7:15 AM EDT [facility] Blood Venous blood specimen / Unknown Venipuncture / Unknown 10/16/2024 12:09 AM EDT 10/16/2024 12:37 AM EDT Aidan Harrison MD LAB BLOOD ORDERABLES Final Res ult Performing Organization Address [facility]/ZIP Co de Phone Number [facility] [address] [place] [address] * CORTISOL, 60 (10/15/2024 1:29 PM EDT) Cortisol Time=60 36.10 Before 10am: 3.7 - 19.4. After 5pm: 2.9 - 17.3 ug/dL 10/15/2024 3:46 PM EDT [facility] Comment:Administer cosyntrop in and obtain serum cortisol a Blood Venous blood specimen / Unknown Venipuncture / Unknown 10/15/2024 1:29 PM EDT 10/15/2024 2:03 PM EDT Aidan Harrison MD LAB BLOOD ORDERABLES Final Res ult [facility] [address] [place] [address] * Cortisol, 30 (10/15/2024 12:55 PM EDT) Cortisol,Time=30 31.20 Before 10am: 3.7 - 19.4. After 5pm: 2.9 - 17.3 ug/dL 10/15/2024 2:42 PM EDT [facility] Comment:Administer cosyntrop in and obtain serum cortisol a Blood Venous blood specimen / Unknown Venipuncture / Unknown 10/15/2024 12:55 PM EDT 10/15/2024 1:21 PM EDT Aidan Harrison MD LAB BLOOD ORDERABLES Final Res ult Performing Organization Address City/[facility]/ZIP Co de Phone Number [facility] [address] [place] [address] * Aldosterone (10/15/2024 12:08 PM EDT) Aldosterone 23.0 4.0 - 31.0 ng/dL 10/16/2024 1:35 AM EDT [facility] Blood Venous blood specimen / Unknown Venipuncture / Unknown 10/15/2024 12:08 PM EDT 10/15/2024 2:08 PM EDT us Aidan Harrison MD LAB BLOOD ORDERABLES Final Res ult Performing Organization Address [facility] Co de Phone Number [facility] [address] [place] [address] * Cortisol Baseline (10/15/2024 12:08 PM EDT) Cortisol (Baseline) 11.60 Before 10am: 3.7 - 19.4. After 5pm: 2.9 - 17.3 ug/dL 10/15/2024 2:07 PM EDT [facility] Comment:Administer cosyntrop in and obtain serum cortisol a Blood Venous blood specimen / Unknown Venipuncture / Unknown 10/15/2024 12:08 PM EDT 10/15/2024 12:14 PM EDT us Aidan Harrison MD LAB BLOOD ORDERABLES Final Res ult Performing Organization Address City/[facility] Co de Phone Number [facility] [address] [place] [address] * Cortisol (10/15/2024 8:29 AM EDT) Cortisol 9.60 Before 10am: 3.7 - 19.4. After 5pm: 2.9 - 17.3 ug/dL 10/15/2024 9:29 AM EDT [facility] [facility] Comment:Testing performed on [employer], standardized against RETIREMENT Reference Standard concentration values assigned by LC-MS/MS and verified by BCR 192 and BCR 193 certified reference materials. Blood Venous blood specimen / Unknown Venipuncture / Unknown 10/15/2024 8:29 AM EDT 10/15/2024 8:38 AM EDT us Aidan Harrison MD LAB REF LAB BLOOD AND FLUID OR D Final Result [facility] [address] [place] [address] * [place] CRITICAL CARE, E/M 30-74 MINUTES (10/15/2024 6:49 [...] 0.16(H) <0.09 ng/mL 10/15/2024 6:41 AM EDT [facility] Blood Arterial blood specimen / Unknown Arterial Puncture / Unknown 10/15/2024 3:23 AM EDT 10/15/2024 3:31 AM EDT Narrative [facility] - 10/15/2024 6:41 AM EDT [...] predict 28 day mortality risk. Please consult [email or web address] for more information. Test performed at [facility]. us Aidan Harrison MD LAB BLOOD ORDERABLES Final Res ult [facility] [address] [place] [address] * (ABNORMAL) Comprehensive Urine Drug Screening, Qualitative Assay, >= 27 Drug Classes (53:04 PM EDT) Acetaminophen Negative Negative 10/16/2024 9:48 AM EDT [facility] Alprazolam Negative Negative 10/16/2024 9:48 AM EDT [facility] Amantadine Negative Negative 10/16/2024 9:48 AM EDT [facility] Amitriptyline Negative Negative 10/16/2024 9:48 AM EDT [facility] Amphetamine Negative Negative 10/16/2024 9:48 AM EDT [facility] Atenolol Negative Negative 10/16/2024 9:48 AM EDT [facility] Benzoylecgonine Negative Negative 9:48 AM EDT [facility] Bisoprolol Negative Negative 10/16/2024 9:48 AM EDT [facility] Bupropion Negative Negative 10/16/2024 9:48 AM EDT [facility] Butalbital Negative Negative 10/16/2024 9:48 AM EDT [facility] Carbamazepine Negative Negative 10/16/2024 9:48 AM EDT [facility] Carisoprodol Negative Negative 10/16/2024 9:48 AM EDT [facility] Chlorpheniramine Negative Negative 10/17/19 9:48 AM EDT [facility] Citalopram Negative Negative 10/16/2024 9:48 AM EDT [facility] Clindamycin Negative Negative 10/16/2024 9:48 AM EDT [facility] Clonidine Negative Negative 10/16/2024 9:48 AM EDT [facility] Clopidogrel / Ticlopidine Negative Negative 10/16/2024 9:48 AM EDT [facility] Cocaethylene Negative Negative 10/16/2024 9:48 AM EDT [facility] Cocaine Negative Negative 10/16/2024 9:48 AM EDT [facility] Codeine Negative Negative 10/16/2024 9:48 AM EDT [facility] Cyclobenzaprine Negative Negative 9:48 AM EDT [facility] Desvenlafaxine Negative Negative 10/16/2024 9:48 AM EDT [facility] Dextromethorphan Negative Negative 10/17/19 9:48 AM EDT [facility] Diazepam Negative Negative 10/16/2024 9:48 AM EDT [facility] Diltiazem Negative Negative 10/16/2024 9:48 AM EDT [facility] Diphenhydramine Negative Negative 9:48 AM EDT [facility] Doxepine Negative Negative 10/16/2024 9:48 AM EDT [facility] Doxylamine Negative Negative 10/16/2024 9:48 AM EDT [facility] EDDP-Methadone metabolite Negative Negative 10/16/2024 9:48 AM EDT [facility] Fentanyl Negative Negative 10/16/2024 9:48 AM EDT [facility] Fluconazole Negative Negative 10/16/2024 9:48 AM EDT [facility] Fluoxetine Negative Negative 10/16/2024 9:48 AM EDT [facility] Guaifenesin Negative Negative 10/16/2024 9:48 AM EDT [facility] Haloperidol Negative Negative 10/16/2024 9:48 AM EDT [facility] Heroin/6-JUVENCIO Negative Negative 10/16/2024 9:48 AM EDT [facility] Hydrocodone Negative Negative 10/16/2024 9:48 AM EDT [facility] Hydroxyzine / Cetirizine metabolite Negative Negative 10/16/2024 9:48 AM EDT [facility] Ibuprofen Negative Negative 10/16/2024 9:48 AM EDT [facility] Imipramine Negative Negative 10/16/2024 9:48 AM EDT [facility] Ketamine Negative Negative 10/16/2024 9:48 AM EDT [facility] Labetolol Negative Negative 10/16/2024 9:48 AM EDT [facility] Lamotrigine Negative Negative 10/16/2024 9:48 AM EDT [facility] Levetiracetam Negative Negative 10/16/2024 9:48 AM EDT [facility] Lidocaine Positive(A) Negative 10/16/2024 9:48 AM EDT [facility] MDA Negative Negative 10/16/2024 9:48 AM EDT [facility] MDMA Negative Negative 10/16/2024 9:48 AM EDT [facility] Memantine Negative Negative 10/16/2024 9:48 AM EDT [facility] Meperidine Negative Negative 10/16/2024 9:48 AM EDT [facility] Meprobamate Negative Negative 10/16/2024 9:48 AM EDT [facility] Metaxalone Negative Negative 10/16/2024 9:48 AM EDT [facility] Methamphetamine Negative Negative 9:48 AM EDT [facility] Methocarbamol Negative Negative 10/16/2024 9:48 AM EDT [facility] Methylecgonine Negative Negative 10/16/2024 9:48 AM EDT [facility] Metoclopramide Negative Negative 10/16/2024 9:48 AM EDT [facility] Metoprolol Negative Negative 10/16/2024 9:48 AM EDT [facility] Metronidazole Negative Negative 10/16/2024 9:48 AM EDT [facility] Midazolam Negative Negative 10/16/2024 9:48 AM EDT [facility] Midazolam Metabolite Negative Negative 10/16/2024 9:48 AM EDT [facility] Mirtazapine Negative Negative 10/16/2024 9:48 AM EDT [facility] Misc Test Result Positive(A) Negative 025 9:48 AM EDT [facility] Comment: Escitalopram Citalopram Trazodone Naproxen Negative Negative 10/16/2024 9:48 AM EDT [facility] Nefazodone Negative Negative 10/16/2024 9:48 AM EDT [facility] Norfentanyl Negative Negative 10/16/2024 9:48 AM EDT [facility] Nortriptyline Negative Negative 10/16/2024 9:48 AM EDT [facility] Ordanstron Negative Negative 10/16/2024 9:48 AM EDT [facility] Oxcarbazepine Negative Negative 10/16/2024 9:48 AM EDT [facility] Oxycodone Positive(A) Negative 10/16/2024 9:48 AM EDT [facility] Paroxethine Negative Negative 10/16/2024 9:48 AM EDT [facility] Phenobarbital Negative Negative 10/16/2024 9:48 AM EDT [facility] Phentermine Negative Negative 10/16/2024 9:48 AM EDT [facility] Phenytoin Negative Negative 10/16/2024 9:48 AM EDT [facility] Primidone Negative Negative 10/16/2024 9:48 AM EDT [facility] Promethazine Negative Negative 10/16/2024 9:48 AM EDT [facility] Propofol Negative Negative 10/16/2024 9:48 AM EDT [facility] Propranolol Negative Negative 10/16/2024 9:48 AM EDT [facility] Quetiapine Negative Negative 10/16/2024 9:48 AM EDT [facility] Quinine Negative Negative 10/16/2024 9:48 AM EDT [facility] Rantidine Negative Negative 10/16/2024 9:48 AM EDT [facility] Sertraline Negative Negative 10/16/2024 9:48 AM EDT [facility] Spironolactone Negative Negative 10/16/2024 9:48 AM EDT [facility] Tizanidine Negative Negative 10/16/2024 9:48 AM EDT [facility] Topiramate Negative Negative 10/16/2024 9:48 AM EDT [facility] Tramadol Negative Negative 10/16/2024 9:48 AM EDT [facility] Trazadone/ Trazadone metabolite Negative Negative 10/16/2024 9:48 AM EDT [facility] Trimethoprim Negative Negative 10/16/2024 9:48 AM EDT [facility] Valproic Acid Negative Negative 10/16/2024 9:48 AM EDT [facility] Venlafaxine Negative Negative 10/16/2024 9:48 AM EDT [facility] Verapamil Negative Negative 10/16/2024 9:48 AM EDT [facility] Zolpidem Negative Negative 10/16/2024 9:48 AM EDT [facility] Xylazine Negative Negative 10/16/2024 9:48 AM EDT [facility] Urine Urine specimen obtained by clean catch procedure / Unknown Non-blood Collection / Unknown 10/14/2024 3:04 PM EDT 10/14/2024 3:16 PM EDT us Aidan Harrison MD LAB URINE ORDERABLES Final Res ult [facility] [address] [place] [address] * Vitamin B1, Whole Blood (10/14/2024 2:35 PM EDT) Pathologist [facility] VITAMIN B1, WHOLE BLOOD 128 70 - 180 nmol/L 10/17/2024 1:55 PM EDT [facility] ([facility]) Blood Arterial blood specimen / Unknown Arterial Line / Unknown 10/14/2024 2:35 PM EDT 10/14/2024 2:50 PM EDT Narrative [facility]ICKY MOTLEY) - 10/17/2024 1:55 PM EDT [...] developed and its performance characteristics determined by [facility]. It has not been cleared or approved by the US Food and Drug Administration. This test was performed in a CLIA certified laboratory and is intended for clinical purposes. Performed By: [facility] [address] [place], [place] [id number] Military Pilot: Jasper Newsome MD, PhD CLIA Number: [id number] us Aidan Harrison MD LAB BLOOD ORDERABLES Final Res ult [facility] ([facility]) [address] [place] [address] * (ABNORMAL) Blood gas panel with oximetry, mixed venous (10/14/2024 2:31 PM EDT) pH, Mixed Venous 7.27(L) 7.32 - 7.43 LAB HEMATOLOGY METHOD 10/14/2024 2:45 PM EDT [facility] pCO2, Mixed Venous 41 37 - 52 mmHg LAB HEMATOLOGY METHOD 10/14/2024 2:45 PM EDT [facility] pO2, Mixed Venous 34 25 - 40 mmHg LAB HEMATOLOGY METHOD 10/14/2024 2:45 PM EDT [facility] SO2, Measured, Mixed Venous 57(L) 65 - 80 % LAB HEMATOLOGY METHOD 10/14/2024 2:45 PM EDT [facility] Bicarbonate, Calculated, Mixed Venous 19(L) 22 - 26 mmol/L LAB HEMATOLOGY METHOD 10/14/2024 2:45 PM EDT [facility] Base Excess, Mixed Venous -7.6(L) -2.0 - 3.0 mmol/L LAB HEMATOLOGY METHOD 10/14/2024 2:45 PM EDT [facility] Hematocrit, Whole Blood 24.7(L) 34.0 - 45.0 % LAB HEMATOLOGY METHOD 10/14/2024 2:45 PM EDT [facility] Sodium, Whole Blood 144 136 - 145 mmol/L LAB HEMATOLOGY METHOD 10/14/2024 2:45 PM EDT [facility] Potassium, Whole Blood 3.6 3.6 - 4.9 mmol/L LAB HEMATOLOGY METHOD 10/14/2024 2:45 PM EDT [facility] Chloride, Whole Blood 113(H) 97 - 107 mmol/L LAB HEMATOLOGY METHOD 10/14/2024 2:45 PM EDT [facility] Ionized Calcium, Whole Blood 4.6 4.6 - 5.1 mg/dL LAB HEMATOLOGY METHOD 10/14/2024 2:45 PM EDT [facility] Glucose, Whole Blood 110(H) 74 - 99 mg/dL LAB HEMATOLOGY METHOD 10/14/2024 2:45 PM EDT [facility] Oxyhemoglobin, Mixed Venous, Whole Blood 56.2 40.0 - 70.0 % LAB HEMATOLOGY METHOD 10/14/2024 2:45 PM EDT [facility] Hemoglobin Reduced, Mixed Venous, Whole Blood 41.8 % LAB HEMATOLOGY METHOD 10/14/2024 2:45 PM EDT [facility] Total Hemoglobin, Mixed Venous, Whole Blood 8.1(L) 11.2 - 15.7 g/dL LAB HEMATOLOGY METHOD 10/14/2024 2:45 PM EDT [facility] Blood Mixed venous blood specimen / Unknown Venipuncture / Unknown 10/14/2024 2:31 PM EDT 10/14/2024 2:43 PM EDT us Aidan Harrison MD LAB BLOOD ORDERABLES Final Res ult [facility] [address] [place] [address] * Treponema Pallidum (Syphilis) Antibodies with Reflex to RPR and RPR Titer (Those with NO known Syphilis) (10/14/2024 9:44 AM EDT) Syphilis Antibody (IgG+IgM) Nonreactive Nonreactive 10/14/2024 11:42 AM EDT [facility] Comment:Nonreactive. No sero logic evidence of syphilis. No follow-up necessary unless clinically indicated (e.g., early syphilis). Blood Venous blood specimen / Unknown Venipuncture / Unknown 10/14/2024 9:44 AM EDT 10/14/2024 10:25 AM EDT us Aidan Harrison MD LAB BLOOD ORDERABLES Final Res ult Performing Organization Address [facility] [place] [address] * (ABNORMAL) T3 (10/14/2024 9:44 AM EDT) T3, Serum 47(L) 87 - 187 ng/dL 10/14/2024 11:57 PM EDT [facility] Blood Venous blood specimen / Unknown Venipuncture / Unknown 10/14/2024 9:44 AM EDT 10/14/2024 10:25 AM EDT us Aidan Harrison MD LAB BLOOD ORDERABLES Final Res ult Performing Organization Address [facility] [place] [address] * [place] CRITICAL CARE, E/M 30-74 MINUTES (10/14/2024 8:59 AM EDT) Narrative Aidan Harrison MD - 10/14/2024 8:59 AM EDT Aidna Harrison MD 10/15/2024 6:08 AM Critical Care [...] LAB HEMATOLOGY METHOD 10/14/2024 7:58 AM EDT [facility] pCO2, Arterial 35 35 - 48 mmHg LAB HEMATOLOGY METHOD 10/14/2024 7:58 AM EDT [facility] pO2, Arterial 75(L) >80 mmHg LAB HEMATOLOGY METHOD 10/14/2024 7:58 AM EDT [facility] SO2, Measured, Arterial 96 94 - 98 % LAB HEMATOLOGY METHOD 10/14/2024 7:58 AM EDT [facility] Base Excess, Arterial -7.8(L) -2.0 - 3.0 mmol/L LAB HEMATOLOGY METHOD 10/14/2024 7:58 AM EDT [facility] Bicarbonate, Calculated, Arterial 18(L) 22 - 26 mmol/L LAB HEMATOLOGY METHOD 10/14/2024 7:58 AM EDT [facility] Hematocrit, Whole Blood 24.5(L) 34.0 - 45.0 % LAB HEMATOLOGY METHOD 10/14/2024 7:58 AM EDT [facility] Sodium, Whole Blood 142 136 - 145 mmol/L LAB HEMATOLOGY METHOD 10/14/2024 7:58 AM EDT [facility] Potassium, Whole Blood 3.9 3.6 - 4.9 mmol/L LAB HEMATOLOGY METHOD 10/14/2024 7:58 AM EDT [facility] Chloride, Whole Blood 114(H) 97 - 107 mmol/L LAB HEMATOLOGY METHOD 10/14/2024 7:58 AM EDT [facility] Glucose, Whole Blood 100(H) 74 - 99 mg/dL LAB HEMATOLOGY METHOD 10/14/2024 7:58 AM EDT [facility] Ionized Calcium, Whole Blood 4.5(L) 4.6 - 5.1 mg/dL LAB HEMATOLOGY METHOD 10/14/2024 7:58 AM EDT [facility] Lactate, Arterial, Whole Blood 0.7 0.5 - 1.6 mmol/L LAB HEMATOLOGY METHOD 10/14/2024 7:58 AM EDT [facility] Blood Arterial blood specimen / Unknown Arterial Puncture / Unknown 10/14/2024 7:52 AM EDT 10/14/2024 7:55 AM EDT us Aidan Harrison MD LAB BLOOD ORDERABLES Final Res ult Performing Organization Address City/[facility]/[place] [address] * (ABNORMAL) BETA HYDROXYBUTYRIC ACID (10/14/2024 6:25 AM EDT) Beta-Hydroxybu tyric Acid, Plasma 1.36(H) <=0.27 mmol/L 10/14/2024 7:30 AM EDT [facility] Blood Venous blood specimen / Unknown Venipuncture / Unknown 10/14/2024 6:25 AM EDT 10/14/2024 6:33 AM EDT us Aidan Harrison MD LAB BLOOD ORDERABLES Final Res ult Performing Organization Address City/[facility]/[place] [address] * TSH (10/14/2024 6:25 AM EDT) Thyroid Stimulating Hormone, Plasma 2.89 0.40 - 4.20 uIU/mL 10/14/2024 2:24 PM EDT [facility] Blood Venous blood specimen / Unknown Venipuncture / Unknown 10/14/2024 6:25 AM EDT 10/14/2024 6:33 AM EDT us Aidan Harrison MD LAB BLOOD ORDERABLES Final Res ult Performing Organization Address City/[facility]/[place] [address] * T4, free (10/14/2024 6:25 AM EDT) Free T4, Plasma 1.6 0.8 - 1.7 ng/dL 10/14/2024 2:24 PM EDT [facility] Blood Venous blood specimen / Unknown Venipuncture / Unknown 10/14/2024 6:25 AM EDT 10/14/2024 6:33 AM EDT us Aidan Harrison MD LAB BLOOD ORDERABLES Final Res ult Performing Organization Address [facility] Co de Phone Number [facility] [address] [place] [address] * Ionized calcium, serum (10/14/2024 12:22 AM EDT) Ionized Calcium, Serum 4.8 4.6 - 5.3 mg/dL LAB HEMATOLOGY METHOD 10/14/2024 12:56 AM EDT [facility] Blood Venous blood specimen / Unknown Venipuncture / Unknown 10/14/2024 12:22 AM EDT 10/14/2024 12:34 AM EDT us Kasey Win MD LAB BLOOD ORDERABLES Final Res ult Performing Organization Address [facility] Co de Phone Number [facility] [address] [place] [address] * XR Hand Right 3+ Views (10/13/2024 [...] 38(H) <14 ng/L 10/13/2024 10:18 AM EDT [facility] Troponin Delta 2 <10 ng/L 10/13/2024 10:18 AM EDT [facility] Troponin Delta Interpretation Not Significant 10/13/2024 10:18 AM EDT [facility] Comment:Not Significant. No acute change in troponin observed between the baseline and 2 hour samples. Blood Arterial blood specimen / Unknown Arterial Line / Unknown 10/13/2024 9:40 AM EDT 10/13/2024 9:50 AM EDT us Cat Jamison MD LAB BLOOD ORDERABLES Final Result [facility] [address] [place] [address] * [place] INSERT NON-TUNNEL CV CATH, HC INSERT NON-TUNNEL [...] were discussed: yes Alternatives discussed: No treatment Hamlet protocol: Procedure explained and questions answered to [...] IN CLINIC/BEDSIDE ORDERABLES F inal Result * OH INSERT CATH,ART,PERCUT,SHORTTERM, HC INSERT CATH,ART,PERCUT,SHORTTERM (10/13/2024 9:09 AM EDT) Narrative Aidan Harrison MD - 10/13/2024 9:09 AM EDT Aidan Harrison MD 10/13/2024 3:36 PM Arterial line Performed by: Erickson Gr DO Authorized by: Aidan Harrison MD Consent: Consent obtained: Emergent situation Consent given by: Patient Risks, benefits, and alternatives were discussed: yes Risks discussed: Bleeding, infection, ischemia, repeat procedure and pain Hamlet protocol: Procedure explained and questions answered to [...] is no recent study available for direct [id number] comparison. Left Ventricle The left ventricle is [...] is no recent study available for direct [id number] comparison. us Cat Jamison MD CV ECHO PROCEDURES Final R esult * Lactate, venous (10/13/2024 6:35 AM EDT) Lactate, Venous, Whole Blood 0.8 0.5 - 2.2 mmol/L LAB HEMATOLOGY METHOD 10/13/2024 6:40 AM EDT [facility] Blood Venous blood specimen / Unknown Venipuncture / Unknown 10/13/2024 6:35 AM EDT 10/13/2024 6:39 AM EDT us Kasey Win MD LAB BLOOD ORDERABLES Final Res ult Performing Organization Address City/[facility]/ZIP Co de Phone Number [facility] [address] [place] [address] * Blood Culture (Aerobic/Anaerobet Set) (10/13/2024 6:35 AM EDT) Culture No growth at day 5 LANA 10/18/2024 8:02 AM EDT [facility] Blood Venous blood specimen / Unknown Venipuncture / Unknown 10/13/2024 6:35 AM EDT 10/13/2024 7:18 AM EDT us Kasey Win MD LAB MICROBIOLOGY - GENERAL ORD ERABLES Final Result Performing Organization Address City/[facility] [place] [address] * Urine Rao Panel (10/13/2024 6:08 AM EDT) Extra Reflex urine culture not indicated 10/13/2024 8:02 AM EDT [facility] Urine Urine specimen obtained by clean catch procedure / Unknown Non-blood Collection / Unknown 10/13/2024 6:08 AM EDT 10/13/2024 6:33 AM EDT us Kasey Win MD LAB URINE ORDERABLES Final Res ult Performing Organization Address City/[facility]/[place] [address] * Urinalysis Microscopic Examination (10/13/2024 6:08 AM EDT) Urine Urine specimen obtained by clean catch procedure / Unknown Non-blood Collection / Unknown 10/13/2024 6:08 AM EDT 10/13/2024 6:21 AM EDT us Kasey Win MD LAB URINE ORDERABLES Final Res ult [facility] [address] [place] [address] * (ABNORMAL) Urinalysis with reflex microscopic (Culture NOT Included) (10/13/2024 6:08 AM EDT) Only the most recent of2 resultswithin the time period is included. Color, Urine Yellow LAB URINALYSIS - AUTOMATED METHOD 10/13/2024 7:07 AM EDT [facility] Clarity, Urine Clear LAB URINALYSIS - AUTOMATED METHOD 10/13/2024 7:07 AM EDT [facility] Spec [place], Urine 1.016 1.005 - 1.030 LAB URINALYSIS - AUTOMATED METHOD 10/13/2024 7:07 AM EDT [facility] pH, Urine 6.5 5.0 - 8.0 LAB URINALYSIS - AUTOMATED METHOD 10/13/2024 7:07 AM EDT [facility] Protein, Urine Trace(A) Negative mg/dL LAB URINALYSIS - AUTOMATED METHOD 10/13/2024 7:07 AM EDT [facility] Glucose, Urine Negative Negative mg/dL LAB URINALYSIS - AUTOMATED METHOD 10/13/2024 7:07 AM EDT [facility] Ketones, Urine Negative Negative mg/dL LAB URINALYSIS - AUTOMATED METHOD 10/13/2024 7:07 AM EDT [facility] Blood, Urine Negative Negative LAB URINALYSIS - AUTOMATED METHOD 10/13/2024 7:07 AM EDT [facility] [facility] Bilirubin, Urine Negative Negative LAB URINALYSIS - AUTOMATED METHOD 10/13/2024 7:07 AM EDT [facility] Urobilinogen, Urine 0.2 0.2 to 1.0 mg/dL LAB URINALYSIS - AUTOMATED METHOD 10/13/2024 7:07 AM EDT [facility] Leukocytes, Urine Small(A) Negative LAB URINALYSIS - AUTOMATED METHOD 10/13/2024 7:07 AM EDT [facility] Nitrite, Urine Negative Negative LAB URINALYSIS - AUTOMATED METHOD 10/13/2024 7:07 AM EDT [facility] RBC, Urine <1 0 to 3 /HPF LAB URINALYSIS - AUTOMATED METHOD 10/13/2024 7:07 AM EDT [facility] WBC, Urine 6 - 10(A) 0 to 5 /HPF LAB URINALYSIS - AUTOMATED METHOD 10/13/2024 7:07 AM EDT [facility] Squamous Epithelial Cells 0 - 2 0 to 5 /HPF LAB URINALYSIS - AUTOMATED METHOD 10/13/2024 7:07 AM EDT [facility] Hyaline Casts 0 - 2 0 to 5 /LPF LAB URINALYSIS - AUTOMATED METHOD 10/13/2024 7:07 AM EDT [facility] Bacteria, Urine Negative Negative LAB URINALYSIS - AUTOMATED METHOD 10/13/2024 7:07 AM EDT [facility] Urine Urine specimen obtained by clean catch procedure / Unknown Non-blood Collection / Unknown 10/13/2024 6:08 AM EDT 10/13/2024 6:21 AM EDT us Kasey Win MD LAB URINE ORDERABLES Final Res ult Performing Organization Address City/State/[facility] Co de Phone Number [facility] [address] [place] [address] * Viv auris Surveillance by PCR (10/13/2024 6:05 AM EDT) Viv auris PCR Result Not Detected Not Detected 10/13/2024 12:18 PM EDT [facility] Swab (Axilla and Groin) Non-blood Collection / Unknown 10/13/2024 6:05 AM EDT 10/13/2024 6:31 AM EDT Narrative [facility] - 10/13/2024 12:18 PM EDT This PCR assay was developed and its performance characteristics determined by [facility] as appropriate for clinical purposes. This assay has not been cleared or approved by the FDA, but is performed in a CLIA regulated laboratory that is qualified to perform high-complexity testing. us Kasey Wni MD LAB MICROBIOLOGY - GENERAL ORD ERABLES Final Result [facility] [address] [place] [address] * (ABNORMAL) Multi Drug Resistance Test (10/13/2024 6:05 AM EDT) Culture Klebsiella pneumoniae ESBL(AA) LANA 10/17/2024 11:07 AM EDT [facility] Comment: The organism value for this result has been updated. These results have been appended to the previously preliminary verified report. The organism value for this result has been updated. These results have been appended to the previously preliminary verified report. Swab (Nares and Rachel Rectal) Non-blood Collection / Unknown 10/13/2024 6:05 AM EDT 10/13/2024 6:31 AM EDT Narrative [facility] - 10/17/2024 11:07 AM EDT This test was developed and its performance characteristics determined by the [facility]. Although the media is FDA-approved, it is not FDA-approved for all specimen types submitted. The FDA has determined that such clearance or approval is not necessary. This test is used for surveillance purposes. It should not be regarded as investigational or for research. The [facility] is certified under [...] 1 ug/ml: Intermediate Klebsiella pneumoniae ESBL Meropenem LAAN <=0.5 ug/ml: Susceptible Klebsiella pneumoniae ESBL Piperacillin/Tazobactam LANA 4/4 ug/ml: Resistant Klebsiella pneumoniae ESBL Tetracycline LANA <=2 ug/ml: Susceptible Klebsiella pneumoniae ESBL Tobramycin LANA <=2 ug/ml: Susceptible Klebsiella pneumoniae ESBL Trimethoprim/Sulfamethoxazo le LANA >2/38 ug/ml: Resistant Kasey Win MD LAB MICROBIOLOGY - GENERAL ORD ERABLES Final Result Performing Organization Address [facility] Co de Phone Number [facility] [address] [place] [address] * Methicillin Resistant Staphylococcus aureus (MRSA) by PCR (10/13/2024 6:05 AM EDT) Methicillin Resistant Staphylococcus aureus (MRSA) by PCR Not Detected Not Detected 10/13/2024 9:07 AM EDT [facility] Swab Both anterior nares / Unknown Non-blood Collection / Unknown 10/13/2024 6:05 AM EDT 10/13/2024 7:18 AM EDT Narrative [facility] - 10/13/2024 9:07 AM EDT [...] ORD ERABLES Final Result Performing Organization Address [facility] Co de Phone Number [facility] [address] [place] [address] * (ABNORMAL) Troponin T, High Sensitivity, 0 Hour Plasma, Reflex to 2 Hour (10/13/2024 5:18 AM EDT) Troponin T, High Sensitivity, 0 Hour 36(H) <14 ng/L 10/13/2024 6:21 AM EDT [facility] Blood Venous blood specimen / Unknown Venipuncture / Unknown 10/13/2024 5:18 AM EDT 10/13/2024 5:24 AM EDT Cat Jamison MD LAB BLOOD ORDERABLES Final Result [facility] [address] [place] [address] * (ABNORMAL) N-Terminal Probnp (10/13/2024 5:18 AM EDT) N-Terminal, PROBNP, Plasma 1,081(H) 0 - 899 pg/mL 10/13/2024 6:21 AM EDT [facility] Blood Venous blood specimen / Unknown Venipuncture / Unknown 10/13/2024 5:18 AM EDT 10/13/2024 5:24 AM EDT us Kasey Win MD LAB BLOOD ORDERABLES Final Res ult [facility] [address] [place] [address] * CT Bony Pelvis (10/13/2024 3:57 AM [...] 6.6(H) <5.7 % 10/13/2024 12:54 PM EDT [facility] Blood Venous blood specimen / Unknown Venipuncture / Unknown 10/13/2024 3:44 AM EDT 10/13/2024 3:46 AM EDT Narrative [facility] - 10/13/2024 12:54 PM EDT HA1C Interpretive Data: Diagnosis of Diabetes: Diabetic > or = 6.5% Pre-diabetic 5.7 to 6.4% Non-diabetic < or = 5.6% Glycemic Targets for Type I and Type II Diabetics: Non- Adults <7.0% Adults <6.0% Children and Adolescents <7.5% Source: [place] [employer]. Standards of medical care in diabetes,2017. Diabetes Care.2017:40 (suppl 1):S1-S135. us Kasey Win MD LAB BLOOD ORDERABLES Final Res ult [facility] [address] [place] [address] * (ABNORMAL) Blood gas, venous (10/13/2024 3:44 AM EDT) pH, Venous 7.29(L) 7.32 - 7.43 LAB HEMATOLOGY METHOD 10/13/2024 3:55 AM EDT [facility] pCO2, Venous 37 37 - 52 mmHg LAB HEMATOLOGY METHOD 10/13/2024 3:55 AM EDT [facility] pO2, Venous 26 25 - 40 mmHg LAB HEMATOLOGY METHOD 10/13/2024 3:55 AM EDT [facility] SO2, Measured, Venous 44(L) 65 - 80 % LAB HEMATOLOGY METHOD 10/13/2024 3:55 AM EDT [facility] Base Excess, Venous -8.5(L) -2.0 - 3.0 mmol/L LAB HEMATOLOGY METHOD 10/13/2024 3:55 AM EDT [facility] Bicarbonate, Calculated, Venous 17(L) 22 - 26 mmol/L LAB HEMATOLOGY METHOD 10/13/2024 3:55 AM EDT [facility] Hematocrit, Whole Blood 29.1(L) 34.0 - 45.0 % LAB HEMATOLOGY METHOD 10/13/2024 3:55 AM EDT [facility] Sodium, Whole Blood 134(L) 136 - 145 mmol/L LAB HEMATOLOGY METHOD 10/13/2024 3:55 AM EDT [facility] Potassium, Whole Blood 4.3 3.6 - 4.9 mmol/L LAB HEMATOLOGY METHOD 10/13/2024 3:55 AM EDT [facility] Chloride, Whole Blood 107 97 - 107 mmol/L LAB HEMATOLOGY METHOD 10/13/2024 3:55 AM EDT [facility] Glucose, Whole Blood 112(H) 74 - 99 mg/dL LAB HEMATOLOGY METHOD 10/13/2024 3:55 AM EDT [facility] Lactate, Venous, Whole Blood 1.2 0.5 - 2.2 mmol/L LAB HEMATOLOGY METHOD 10/13/2024 3:55 AM EDT [facility] Ionized Calcium, Whole Blood 4.8 4.6 - 5.1 mg/dL LAB HEMATOLOGY METHOD 10/13/2024 3:55 AM EDT [facility] Blood Venous blood specimen / Unknown Venipuncture / Unknown 10/13/2024 3:44 AM EDT 10/13/2024 3:53 AM EDT us Derik Renae MD LAB BLOOD ORDERABLES Final Resu lt [facility] [address] [place] [address] * Drug Abuse Screen, Urine (10/12/2024 11:56 PM EDT) Amphetamine Screen Urine Negative Cutoff: 500 ng/mL 10/13/2024 12:45 AM EDT [facility] Benzodiazepines Screen Urine Negative Cutoff: 200 ng/mL 10/13/2024 12:45 AM EDT [facility] Cannabinoid Screen Urine Negative Cutoff: 50 ng/mL 10/13/2024 12:45 AM EDT [facility] Cocaine Screen Urine Negative Cutoff: 300 ng/mL 10/13/2024 12:45 AM EDT [facility] Barbiturate Screen Urine Negative Cutoff: 200 ng/mL 10/13/2024 12:45 AM EDT [facility] Opiate Screen Urine Negative Cutoff: 300 ng/mL 10/13/2024 12:45 AM EDT [facility] Methadone Screen Urine Negative Cutoff: 300 ng/mL 10/13/2024 12:45 AM EDT [facility] Buprenorphine Screen Urine Negative Cutoff: 10 ng/mL 10/13/2024 12:45 AM EDT [facility] Fentanyl Screen Urine Negative Cutoff: 1 ng/mL 10/13/2024 12:45 AM EDT [facility] Oxycodone Screen Urine Negative Cutoff: 100 ng/mL 10/13/2024 12:45 AM EDT [facility] Urine Urine specimen obtained by clean catch procedure / Unknown Non-blood Collection / Unknown 10/12/2024 11:56 PM EDT 10/13/2024 12:13 AM EDT us Cat Jamison MD LAB URINE ORDERABLES Final Result [facility] [address] [place] [address] * (ABNORMAL) Anti Xa Level Low Molecular Weight (10/12/2024 11:56 PM EDT) Anti Xa Level Low Molecular Weight Heparin >2.00(HH) <2.00 IU/mL 10/13/2024 1:02 AM EDT [facility] Blood Venous blood specimen / Unknown Venipuncture / Unknown 10/12/2024 11:56 PM EDT 10/13/2024 12:01 AM EDT Narrative [facility] - 10/13/2024 1:02 AM EDT Therapeutic Range: LMWH enoxaparin 1mg/kg/dose, 12hrs - peak (3-5 hours after dose): 0.5 - 1.0 IU/mL LMWH enoxaparin 1.5mg/kg/dose, 24hrs - peak (3-5 hours after dose): 1.0 - 2.0 IU/mL LMWH enoxaparin prophylaxis: Not established us Derik Renae MD LAB BLOOD ORDERABLES Final Resu lt Performing Organization Address City/[facility]/ZIP Co de Phone Number [facility] [address] [place] [address] * Red Blood Cell Antibody with Antigen Notification (10/12/2024 11:55 PM EDT) Notification, Gabriela Blood Cell Antibody with Antigen During your recent admission to the [facility], laboratory testing performed in the blood bank [...] do not hesitate to call me at [phone]. No defined reference value 10/14/2024 4:24 PM EDT BLOOD BANK Pathologist Signature, Red Blood Cell Antibody with Antigen Reviewed by: Srikanth Watson MD 10/14/2024 4:24 PM EDT BLOOD BANK Blood Venous blood specimen / Unknown Venipuncture / Unknown 10/12/2024 11:55 PM EDT 10/13/2024 12:04 AM EDT us Aidan Harrison MD LAB BLOOD BANK TEST ORDERABLES Final Result Performing Organization Address [facility] Co de Phone Number BLOOD BANK [address] [place] [address], * ED HIV 1/2 Antibody/Antigen Screen w/Reflex to HIV 1/2 Differentiation (10/12/2024 11:55 PM EDT) HIV 1 & 2 Antibody/Antigen Screen Non Reactive Non Reactive 10/13/2024 12:58 AM EDT [facility] Comment:Screening for HIV 1 & 2 antibodies, and P24 antigen is NONREACTIVE. No confirmatory testing is required. Blood Venous blood specimen / Unknown Venipuncture / Unknown 10/12/2024 11:55 PM EDT 10/13/2024 12:12 AM EDT us Cat Jamison MD LAB BLOOD ORDERABLES Final Result Performing Organization Address City/[facility]/ZIP Co de Phone Number [facility] [address] [place] [address] * (ABNORMAL) Trauma shock panel blood gas (10/12/2024 11:55 PM EDT) pH, Venous 7.23(LL) 7.32 - 7.43 LAB HEMATOLOGY METHOD 10/13/2024 12:06 AM EDT [facility] Bicarbonate, Calculated, Venous 17(L) 22 - 26 mmol/L LAB HEMATOLOGY METHOD 10/13/2024 12:06 AM EDT [facility] Base Excess, Venous -10.0(L) -2.0 - 3.0 mmol/L LAB HEMATOLOGY METHOD 10/13/2024 12:06 AM EDT [facility] Lactate, Venous, Whole Blood 1.8 0.5 - 2.2 mmol/L LAB HEMATOLOGY METHOD 10/13/2024 12:06 AM EDT [facility] Blood Venous blood specimen / Unknown Venipuncture / Unknown 10/12/2024 11:55 PM EDT 10/13/2024 12:02 AM EDT us Cat Jamison MD LAB BLOOD ORDERABLES Final Result Performing Organization Address City/[facility]/ZIP Co de Phone Number [facility] [address] [place] [address] * Ethyl Alcohol Plasma (10/12/2024 11:55 PM EDT) Ethanol Plasma <10 <10 mg/dL 10/13/2024 12:55 AM EDT [facility] Blood Venous blood specimen / Unknown Venipuncture / Unknown 10/12/2024 11:55 PM EDT 10/13/2024 12:12 AM EDT Narrative [facility] - 10/13/2024 12:55 AM EDT Enzymatic Assay: Performed on [employer]. us Cat Jamison MD LAB BLOOD ORDERABLES Final Result [facility] [address] [place] [address] * Hepatitis C Antibody - ED (10/12/2024 11:55 PM EDT) [facility] Hepatitis C Antibody Negative Negative 10/13/2024 12:58 AM EDT [facility] Blood Venous blood specimen / Unknown Venipuncture / Unknown 10/12/2024 11:55 PM EDT 10/13/2024 12:12 AM EDT Cat Jamison MD LAB BLOOD ORDERABLES Final Result Performing Organization Address [facility]/ZIP Co de Phone Number [facility] [address] [place] [address] * (ABNORMAL) TEG Global Hemostasis with Lysis (10/12/2024 11:55 PM EDT) [facility] R, Lysis 9.3(H) 4.6 - 9.1 min 10/13/2024 1:21 AM EDT [facility] MA, Rapid, Lysis 69.9 52.0 - 70.0 mm 10/13/2024 1:21 AM EDT [facility] MA, Fibrinogen, Lysis 32.5(H) 15.0 - 32.0 mm 10/13/2024 1:21 AM EDT [facility] LY30 0.8 0.0 - 2.6 % 10/13/2024 1:21 AM EDT [facility] Blood Venous blood specimen / Unknown Venipuncture / Unknown 10/12/2024 11:55 PM EDT 10/13/2024 12:17 AM EDT Cat Jamison MD LAB BLOOD ORDERABLES Final Result Performing Organization Address City/[facility]/ZIP Co de Phone Number [facility] [address] [place] [address] * (ABNORMAL) APTT (PTT) (10/12/2024 11:55 PM EDT) [facility] aPTT 36(H) 25 - 35 sec 10/13/2024 12:15 AM EDT [facility] Blood Venous blood specimen / Unknown Venipuncture / Unknown 10/12/2024 11:55 PM EDT 10/13/2024 12:01 AM EDT Cat Jamison MD LAB BLOOD ORDERABLES Final Result Performing Organization Address City/[facility]/ZIP Co de Phone Number [facility] [address] [place] [address] * (ABNORMAL) PT-INR (10/12/2024 11:55 PM EDT) Prothrombin Time 20.2(H) 12.0 - 14.3 sec 10/13/2024 12:14 AM EDT [facility] INR 1.7(H) 0.9 - 1.1 10/13/2024 12:14 AM EDT [facility] Blood Venous blood specimen / Unknown Venipuncture / Unknown 10/12/2024 11:55 PM EDT 10/13/2024 12:01 AM EDT Narrative [facility] - 10/13/2024 12:14 AM EDT OPTIMAL INR RANGES FOR PATIENT ON ORAL ANTICOAGULANT THERAPY Prevention of venous thromboembolism INR 2.0 to 3.0 In patients with heart disease: Atrial fibrillation INR 2.0 to 3.0 Valvular heart disease INR 2.0 to 3.0 Tissue heart valves INR 2.0 to 3.0 Mechanical prosthetic valves INR 2.5 to 3.5 Prevention of recurrent DE INR 2.5 to 3.5 us Cat Jamison MD LAB BLOOD ORDERABLES Final Result [facility] [address] [place] [address] * Test Qualitative Plasma (10/12/2024 11:55 PM EDT) Test Negative Negative 10/13/2024 1:02 AM EDT [facility] Blood Venous blood specimen / Unknown Venipuncture / Unknown 10/12/2024 11:55 PM EDT 10/13/2024 12:12 AM EDT Narrative [facility] - 10/13/2024 1:02 AM EDT Reference Range: Males and non- females: Negative. us Cat Jamison MD LAB BLOOD ORDERABLES Final Result [facility] [address] [place] [address] * CT OUTSIDE IMAGES (10/12/2024 8:15 PM [...] Documents on File Type Date Recorded Patient Hedis Registered Nurse Rn Expl anation Advance Directives and Livin g Will 10/14/2024 4:42 PM Advance Directives and Livin g Will 10/13/2024 6:35 AM * Full Code (Latest Code Status on File) Date Activated Date Inactivated Comments 10/13/2024 5:26 AM 10/30/2024 7:10 PM Question Answer Comments I have reviewed the capacity from the link above and, if needed, have updated to appropriate status: Yes Care Teams Land Appraiser Relationship Specialty Start Date End Date Cosme Davis MD [address] [place] [address] PCP - General 06/24/20
[2024-12-23 09:02] LABS: Anion Gap 14.4 mEq/L (5-15); Calcium 8.9 mg/dl (8.4-10.2); Carbon Dioxide 25 mmol/L (22.0-30.0); Chloride 99 mmol/L (98-107); Creatinine,Serum 3.50 mg/dl (0.52-1.04); Estimated Glomerular Filt Rate 13 ml/min (>60); GFR (African American) 16 ML/MIN (>60); Glucose 130 mg/dl (74-100); Potassium 5.4 mmoL/L (3.5-5.1); Sodium 133 mmol/L (136-145)
[2024-12-23 09:42] LABS: Blood Urea Nitrogen 101 mg/dl (7-17)
== END 2024-12-23 23:59 | disposition home or self-care (01) ==
LOC: LAB.DROPOF 08:12
PROVIDERS: PCP Family Medicine; Visit Provider Nurse Practitioner Family
DX: E87.5 Hyperkalemia (principal)
CPT/HCPCS: 36415; 80048

== ENCOUNTER 2024-12-29 05:44 | Emergency (ER) | payer MEDICARE, SELFPAY ==
--- OUTSIDE RECORDS SUMMARY | 2024-11-13 10:20 | XMS_ITS | Encounter Summary ---
Author Organization Healthcare Address [address] [place] [address] Care Team Providers Care Tire Maintenance Technician Name Role Phone Cosme Davis MD Primary Care Provider [phone] Reason for Referral * Consultation (Routine) - Authorized Specialty Diagnoses / Procedures Referred By Yogi tapia Referred To Contact Physical Therapy Diagnoses Pain in pelvis Smiley Negrete PA [address] [facility] [address] [place] [address] Phone: tel: fax: Referral ID Status Reason Start Date Expiration Date Visits Requested Visits Authorized [id number] Authorized Consult and Treat 11/13/2024 05/15/2026 1 1 Reason for Visit * Reason Comments Follow-up Encounter Details Date Type Department Care Team (Late st Contact Info) Description 11/13/2024 11:20 AM EDT [facility] Visit [facility] [address] 1[address] [place] [address] Paulo Darnell MD [address] [facility] [address] [place] [address] Pain in pelvis (Primary Dx) [...] and Family Not on file 10/13/2024 Attends Zoroastrian Services Not on file 10/13 Active Member [...] any time in the past 12 m [facility], were you homeless or living in a [facility] (including now)? No 10/13/2024 [facility] Utilities Answer Date Recorded In the past 12 months has [employer], gas, oil, or water [employer] threatened to shut off services in [...] follow up. She has been in a [facility] facility. She has been working with physical [...] by mouth daily., Disp: , Rfl: HYDROcodone-acetaminophen ([place]) 5-325 MG tablet, , Disp: , Rfl: [...] Description 01/21/2025 1:[address] [facility] [address] [place] [address] 01/21/2025 2:[address] [facility] [address] [place] [address] 01/21/2025 2:40 PM EST Office Visit [facility] [address] [place] [address] Jose Rosario MD [address] [place] [address] Scheduled Referrals Name Type Priority [...] documented as of this encounter Care Teams Tire Maintenance Technician Relationship Specialty Start Date End Date Cosme Davis MD [address] [place] [address] PCP - General 06/24/20 documented as of this encounter
--- OUTSIDE RECORDS SUMMARY | 2024-11-13 10:23 | XMS_ITS | Encounter Summary ---
Author Organization Healthcare Address [address] [place] [address] Care Team Providers Care Room Server Name Role Phone Cosme Davis MD Primary Care Provider [phone] Encounter Details Date Type Department Care Team (Latest Contact Info) Description 11/13/2024 11:23 AM EDT - 11/13/2024 11:59 PM EDT Hospital Encounter [facility] [address], 1st [place] [address] Pain in pelvis Discharge Disposition: Home or [...] and Family Not on file 10/13/2024 Attends [employer] Services Not on file 10/13 Active Member [...] in the past 12 m [facility], were you homeless or living in a group home (including now)? No 10/13/2024 [facility] Utilities Answer Date Recorded In the past 12 months has th e [employer], gas, oil, or water company threatened to [...] tablet by mouth daily. 08/21/2018 HYDROcodone-acet aminophen ([place]) 5-325 MG tablet 11/02/2024 insulin glargine (Lantus) [...] Info) Description 01/21/2025 1:30 PM EST Appointment [facility] Lab [address], [address] [place] [address] 01/21/2025 2:00 PM EST Appointment [facility] [address], [address] [place] [address] 01/21/2025 2:40 PM EST Office Visit [facility] [address], [address] [place] [address] Jose Rosario MD [address] [facility] [address] [place] [address] documented as of this encounter Procedures Procedure [...] documented as of this encounter Care Teams Room Server Relationship Specialty Start Date End Date Cosme Davis MD [address] [place] [address] PCP - General 06/24/20 documented as of this encounter
[2024-12-29] VITALS (10 sets, daily range): BP systolic 111–136; BP diastolic 63–73; PULSE 65–100; RESP 12–20; TEMP 36.7–36.8; O2SAT 98–100; BMI 34.0
--- NOTE | 2024-12-29 05:41 | ECG_ITS ---
APPROVED REPORT Exam: Resting ECG HR:99 bpm ECG Measurements Heart Rate 99 AXES QRSd 110 QRS 39 QT 355 T 87 QTc [address] DEVIATION AND MODERATE T-WAVE ABNORMALITY, CONSIDER LATERAL ISCHEMIA [-0.1+ mV T-WAVE IN I/aVL/V5/V6] ABNORMAL ECG Significant chatter limits diagnostic ability Electronically signed by : SOFYA LAINEZ, 12/29/2024 15:36:46
--- NOTE | 2024-12-29 05:44 | XR_ITS ---
PROCEDURE INFORMATION: Exam: XR Chest Exam date and time: 12/29/2024 5:46 AM Age: 64 years old Clinical indication: Injury or trauma; Fall TECHNIQUE: Imaging protocol: Radiologic exam of the chest. Views: 1 view. COMPARISON: CR XR CHEST PORTABLE 11/15/2024 9:35 PM FINDINGS: Tubes, catheters and devices: There is a multi lead pacer defibrillator on the left side of the chest. Lungs: Cephalization of pulmonary blood flow suggesting a component of pulmonary venous hypertension. No definite pulmonary edema at this time. Pleural spaces: Unremarkable. No pleural effusion. No pneumothorax. Heart/Mediastinum: The chest is rotated to the right. The heart is upper limits of normal for size. Previous left atrial appendage clipping. Status post CABG. Bones/joints: Status post median sternotomy. No acute osseous lesions identified. Soft tissues: Unremarkable. IMPRESSION: Cephalization of pulmonary blood flow suggesting a component of pulmonary venous hypertension. No evidence of pulmonary edema at this time.
--- NOTE | 2024-12-29 05:44 | CT_ITS ---
FINAL REPORT TECHNIQUE: Axial CT images were performed through the head. Coronal and sagittal reformatted images were submitted. This study was performed with techniques to keep radiation doses as low as reasonably achievable (ALARA). Individualized dose reduction techniques using automated exposure control or adjustment of mA and/or kV according to the patient's size were employed. CT examination of the head was performed from the vertex through the skull base using axial images. Multiplanar reconstructions in the sagittal and coronal planes were subsequently performed. This study was performed with techniques to keep radiation doses as low as reasonably achievable (ALARA). Individualized dose reduction techniques using automated exposure control or adjustment of mA and/or kV according to the patient's size were employed. CLINICAL HISTORY: trauma, critical injury suspected COMPARISON: 10/12/2024 FINDINGS: CT HEAD: Moderate global atrophy is present, stable since the prior exam. 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 Maxillary sinus mucoperiosteal thickening is noted. There is a mildly displaced fracture of the nasal bridge. There is no mass or edema identified. There is no abnormal extra-axial fluid seen. The sinuses are well aerated. IMPRESSION: No acute intracranial process. Remote fractures in the left frontal and posterior left parietal regions, stable since the most recent CT of 10/12/2024. Reviewed, Interpreted and Dictated by Dayday Owens MD Transcribed by Celina Holden Authenticated and [facility]
--- NOTE | 2024-12-29 05:44 | CT_ITS ---
FINAL REPORT TECHNIQUE: Postcontrast axial images of the chest were performed in a CTA protocol. This study was performed with techniques to keep radiation doses as low as reasonably achievable, (ALARA). Individualized dose reduction technique using automated exposure control or adjustment of mA and/or kV according to the patient's size were employed. CLINICAL HISTORY: trauma, fall on thinners COMPARISON: 10/12/2024 FINDINGS: There is a left-sided pacemaker in place. The heart is normal in size. No adenopathy is identified. No pleural or pericardial effusion is identified. The thoracic aorta is normal in caliber with no focal aneurysm or dissection identified. There is no filling defect to suggest pulmonary embolism. There are mild changes of centrilobular emphysema. Densities in the periphery of the left upper lobe are seen on image 36 of series 5 which are likely inflammatory. Otherwise, no lung infiltrate or mass is identified. IMPRESSION: No evidence for PE on this exam. Densities in the periphery of the left upper lobe, likely inflammatory. Reviewed, Interpreted and Dictated by Dayday Owens MD Transcribed by Aleyda Michel Authenticated and [facility]
--- NOTE | 2024-12-29 05:44 | XR_ITS ---
PROCEDURE INFORMATION: Exam: XR Pelvis Exam date and time: 12/29/2024 5:46 AM Age: 64 years old Clinical indication: Injury or trauma; Fall TECHNIQUE: Imaging protocol: Radiologic exam of the pelvis. Views: 1 or 2 view. COMPARISON: CT ABDOMEN PELVIS W CON 11/15/2024 10:37 PM FINDINGS: Tubes, catheters and devices: Multiple surgical clips projecting over the deep pelvis. Bones/joints: The pelvic bones and hips appear intact within the limits of the exam. Mild osteoarthritic changes at each hip. Soft tissues: Body habitus reduces image quality and sensitivity for subtle findings. Gastrointestinal tract: There is a nonobstructed bowel-gas pattern. Somewhat heavy fecal pattern along the right side of the abdomen suggesting a component of constipation. Vasculature: There are bilateral iliac artery stents kissing in the infrarenal abdominal aorta. IMPRESSION: 1. Body habitus decreases sensitivity of the exam for subtle findings but no visible pelvic or hip fractures. 2. Heavy fecal pattern along the right side of the abdomen suggesting a component of constipation. No visible bowel obstruction.
--- NOTE | 2024-12-29 05:44 | CT_ITS ---
FINAL REPORT TECHNIQUE: Axial images were obtained of the cervical spine by computed tomography. Coronal and sagittal reconstruction process performed. This study was performed with techniques to keep radiation doses as low as reasonably achievable (ALARA). Individualized dose reduction techniques using automated exposure control or adjustment of mA and/or kV according to the patient's size were employed. CLINICAL HISTORY: trauma, critical injury suspected COMPARISON: 10/12/2024 FINDINGS: CT CERVICAL SPINE: Cervical vertebrae show normal height. Disc spaces are well-preserved. Small degenerative osteophytes are noted. There is scoliosis of the cervical spine convex to the right. The facets are properly aligned. IMPRESSION: Scoliosis of the cervical spine convex to the right. No acute osseous abnormality is identified. Reviewed, Interpreted and Dictated by Dayday Owens MD Transcribed by Celina Holden Authenticated and [facility]
--- NOTE | 2024-12-29 05:44 | CT_ITS ---
FINAL REPORT TECHNIQUE: Pre-and postcontrast images of the abdomen and pelvis were performed by computed tomography. Extensive 3-D reconstruction images were performed. A CTA was performed. This study was performed with techniques to keep radiation doses as low as reasonably achievable (ALARA). Individualized dose reduction techniques using automated exposure control or adjustment of mA and/or kV according to the patient''s size were employed. CLINICAL HISTORY: trauma, fall on thinners, pelvis efast indetermina COMPARISON: 11/16/2024 FINDINGS: ABDOMEN AND PELVIS: There is trace ascites surrounding the liver. Gallbladder is not identified. Pancreas and spleen are unremarkable. There is a right adrenal adenoma which is unchanged measuring 1.4 cm. There are benign appearing cysts in the kidneys measuring up to 2.8 cm in the superior pole of the right kidney. There is a large right anterior pelvic wall hernia with associated ostomy. Stranding is seen of the subcutaneous fat of the anterior pelvic wall. Osseous structures demonstrate healing fractures of the right superior and inferior pubic rami and right ilium. CTA: There is no aneurysm or dissection of the abdominal aorta. 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 There is 50% stenosis of the origin of the SMA. Focal, 50% stenosis is seen of the proximal right renal artery seen on image 33 of series 1003. There are bilateral common iliac artery stents which are patent. 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 Stable right adrenal nodule. Large right anterior pelvic wall hernia with associated ostomy. Reviewed, Interpreted and Dictated by Dayday Owens MD Transcribed by Aleyda Michel Authenticated and [facility]
--- OUTSIDE RECORDS SUMMARY | 2024-12-29 05:49 | XMS_ITS | Encounter Summary ---
Author Organization Healthcare Address [address] [place] [address] Care Team Providers Care Animal Herder Name Role Phone Cosme Davis MD Primary Care Provider [phone] Encounter Details Date Type Department Care Team [...] and Family Not on file 10/13/2024 Attends [facility] Not on file 10/13 Active Member [...] time in the past 12 m [facility], were you homeless or living in a custodial (including now)? No 10/13/2024 [facility] Utilities Answer Date Recorded In [...] Appointment [facility] [address] [place] [address] 01/21/2025 2:00 PM EST Appointment [facility] [address] [place] [address] 01/21/2025 2:40 PM EST Office Visit [facility] [address] [place] [address] Jose Rosario MD [address] [place] [address] documented as of this encounter [...] documented as of this encounter Care Teams Animal Herder Relationship Specialty Start Date End Date Cosme Davis MD [address] [place] [address] PCP - General 06/24/20 documented as of this encounter
--- OUTSIDE RECORDS SUMMARY | 2024-12-29 05:50 | XMS_ITS | Encounter Summary ---
Author Organization [employer] ([place], [place], [place], [place], [place]) Address [address] [place] [address] Care Team Providers Care Wood Caulker Name Role Phone Unavailable Primary Care Provider Unavailabl e Encounter Details Date Type Department Care Team (Late st Contact Info) Description 03/29/2018 Transcribed Document [facility] [place] [place] Family Medicine [address] [place] [address] ProviderZion MD [address] [place] [address] Social History Tobacco Use Types [...] - Historical ProviderMD - 03/29/2018 5:00 AM DIRECTOR GRAPHICS Chart Check - Review Order Profile Entered On: 03/29/2018 6:43 EST Performed On: 03/29/2018 5:00 EST by Tiffany Guadalupe RN Chart Check Chart Reviewed Date and Time : 03/29/2018 6:43 EST Powerplans Initiated/Discontinued as Appropriate : Yes All Active Orders Reviewed : Yes Tiffany Guadalupe RN - 03/29/2018 6:43 EST Electronically signed by Jorge Alberto [facility] Conversion Table Maker Cerner at 05/29/2022 8:36 PM CDT documented in this encounter Plan of Treatment Not on file documented as of this encounter Visit Diagnoses Not on filedocumented in this encounter
--- OUTSIDE RECORDS SUMMARY | 2024-12-29 05:50 | XMS_ITS | Encounter Summary ---
Author Organization [employer] ([place], [place], [place], [place], [place]) Address [address] [place] [address] Care Team Providers Care School Plant Consultant Name Role Phone Unavailable Primary Care Provider Unavailabl e Encounter Details Date Type Department Care Team (Late st Contact Info) Description 03/29/2018 Transcribed Document [facility] [place] Family Medicine [address] [place] [address] ProviderZion MD [address] [place] [address] Social History Tobacco Use Types Packs/Day Years Used Date Smoking Tobacco: Never Assessed Comments Unknown Sex and Gender Information Value Date Recorded Sex Assigned at Not on file Legal Sex Female 4:39 PM CDT Gender Identity Not on file Sexual Orientation Not on file documented as of this encounter Miscellaneous Notes * Cerner Conversion Note - Historical ProviderMD - 03/29/2018 1:22 PM WELLNESS PROGRAM MANAGER Nursing Discharge Summary Entered On: 03/29/2018 13:22 EST Performed On: 03/29/2018 13:22 EST by Odalys Bush Rn-Tumbling And Rolling Supervisor Discharge Documentation Discharge, Comment : Report: Joshua [phone] Discharge Summary Sent to : Joshua [phone] Odalys Bush Rn-Tumbling And Rolling Supervisor - 03/29/2018 13:22 EST Electronically signed by Jorge Alberto [facility] Conversion Car Inspection And Repair Manager Cerner at 05/29/2022 8:31 PM CDT documented in this encounter Plan of Treatment Not on file documented as of this encounter Visit Diagnoses Not on filedocumented in this encounter
--- OUTSIDE RECORDS SUMMARY | 2024-12-29 05:51 | XMS_ITS | Encounter Summary ---
Author Organization [employer] ([place], [place], [place], [place], [place]) Address [address] [place] [address] Care Team Providers Care Diver Helper Name Role Phone Unavailable Primary Care Provider Unavailabl e Encounter Details Date Type Department Care Team (Late st Contact Info) Description 03/29/2018 Transcribed Document [facility] [place] [facility] [place] Medicine [address] [place] [address] ProviderZion MD [address] [place] [address] Social History Tobacco Use Types [...] - Zion ProviderMD - 03/29/2018 3:30 PM HORTICULTURALIST Care Management Assessment/Plan Entered On: 03/29/2018 15:31 EST Performed On: 03/29/2018 15:30 EST by Odalys Bush Rn-Business Machine OperatorSpinning Machine Tender Note Anticipated Discharge Date : 03/30/2018 14:00 EST Care Management Note : Patient discharge summary sent through [facility]. Care Management Note Report : Odalys Bush Rn-Business Machine Operator - 03/29/18 13:22:06 Confirmed with [facility] that patient can transfer today [phone]; [phone]. Spoke with patient's daughter Jazmine [phone] who [address] to transport[address] Dr. Hamilton advised and dishcarge pharmacy aware. Patient should be ready to transport by 15:00. Ninoska Cuellar Rn-Business Machine Operator Ed - 03/28/18 20:23:22 CM faxed orders to [facility] for IV abx f [phone] per md orders. CM will need to call [facility] to notify them of final d/c plan per MD orders p [phone]. CM to follow for ongoing d/c planning/needs. Ninoska Cuellar, Rn-Business Machine Operator Ed - 03/28/18 18:12:15 CM recieved call from Gama at [facility] stating they can take pt at their facility, but not until Saturday, as they now have an agreement with [facility]. CM then spoke with Edie from [facility] and she again confirms they can accept pt at their facility tomorrow. CM updated pt and now pt is agreeable to go to [facility]. She also gave CM permission to speak with Jazmine joshi by phone p [phone]. CM spoke with Jazmine and she is agreeable with plan for [facility], stating its much closer to them, approx 30 min. Pt tells CM that her PCP, Dr. Davis had told her that she was not able to do IV abx from home. Discharge plan will be to go to [facility] in the am. CM updated Dr. Stauffer and he reports he will notify [facility] for tomorrow. CM will cont to follow for ongoing d/c planning/needs. Ninoska Cuellar, Rn-Business Machine Operator Ed - 03/28/18 16:01:02 [facility] states home cost for Rocephin is $3.70/wk. She states they may be able to contract with SNF to provide abx at pt's cost. She asked CM to have SNF call Paulo at their office to see about arranging. CM called MADELYN Corona with [facility] and she will call [facility] to see if this can be arranged. Updated BS RNAva. CM will cont to follow. Ninoska Cuellar, Rn-Business Machine Operator Ed - 03/28/18 14:57:29 Called [facility] and spoke with Chiquita and updated her on IV abx needs. SHe will check cost and call CM back to see if bed offer is still on the table. CM left for [facility] with [facility] Raines to update her, left requesting return phone call. CM updated pt and she appears discouraged that [facility] will not accept her as a pt. She tells CM that she is considering just going home. BLAKE also called Mariahjesus with [facility] to argueta abx at home. She states that [facility] may also be able to contract with facility to provide them with abx at their cost. CM faxed info on pt and abx to [facility] f [phone]. CM updated BS RN, Ava. CM will cont to follow. Ninoska Cuellar, Rn-Business Machine Operator Ed - 03/28/18 14:21:[address] Jones this am and he tells CM that pt is ready for discharge from his standpoint and that ID has a plan in place for IV abx. PT does have a PICC in place. Recieved VM from [facility] with [facility] p [phone] stating they are interested in pt. CM went to BS to speak with pt to discuss bed offers. CM presented bed offers and pt tells CM that she really doesn't want to go to another facility. Pt tells CM that she only wants to go to [facility], as she has been there in the past. [facility] had not make bed offer at this time. BLAKE called and spoke with Gama in admissions at [facility] and she tells CM that per her DON, they do not believe they can meet pt's needs at this time. CM pressed for more information and Gama told CM that she would have DON call her. -BLAKE then spoke with MADELYN Corona at [facility] and she states that pt appears too sick at this time to come to their facility. BLAKE provided her with verbal updates, as well as faxed updates f [phone]. She states they will reevaluate now, knowing [...] pt at this time due to the $2375-0165 IV rocephin cost through 05/04/[address] Diaz orders. Cm to follow for ongoing d/c planning/needs. Stew Porras, RN - 03/27/18 16:25:12 edie from [facility] ( [phone]) called to make bed offer. bed offers will be presented to pt 03/28[phone] Stew Porras, RN - 03/27/18 15:00:29 spoke to ID who states pt maybe ready for dc as early as 03/28. id and attending PA are recommending SNF. spoke with pt and her dtr, jazmine and informed them of suggestion from drs to dc to snf for iv abx. pt and dtr in agreement and [facility] following [place].... [place]. Stew Porras, REGULO - 03/27/18 10:34:34 RRS-43 + for BROCK CT consulted and per ID, infection must clear prior to any ant surgical intervention Currnelty on rocephin iv w/bld cx pending Documentation Status Complete : Yes Odalys Bush Rn-Business Machine Operator - 03/29/2018 15:30 EST Info/List/Choices Provided Patient Offered Choice/Affiliations Explained : Yes List/Info Provided Pt/Fam/Support Person : intermediate facilities Odalys Bush Rn-Business Machine Operator - 03/29/2018 15:30 EST Final Discharge Disposition Note-CM Final Discharge Disposition Note-CM : Transport by Family. Discharge To Care Management : SNF with Medicare Certification-03 Name of Receiving Facility/Provider- : [facility] Odalys Bush Rn-Business Machine Operator - 03/29/2018 15:30 EST documented in this encounter Plan of Treatment Not on file documented as of this encounter Visit Diagnoses Not on filedocumented in this encounter
--- OUTSIDE RECORDS SUMMARY | 2024-12-29 05:51 | XMS_ITS | Encounter Summary ---
Author Organization [employer] ([place], [place], [place], [place], [place]) Address [address] [place] [address] Care Team Providers Care Acquisition Advisor Name Role Phone Unavailable Primary Care Provider Unavailabl e Encounter Details Date Type Department Care Team (Late st Contact Info) Description 03/29/2018 Transcribed Document [facility] [place] Family Medicine [address] [place] [address] ProviderZion MD [address] [place], [place] [id number] Social History Tobacco Use Types Packs/Day Years Used Date Smoking Tobacco: Never Assessed Comments Unknown Sex and Gender Information Value Date Recorded Sex Assigned at Not on file Legal Sex Female 4:39 PM CDT Gender Identity Not on file Sexual Orientation Not on file documented as of this encounter Miscellaneous Notes * Cerner Conversion Note - Historical ProviderMD - 03/29/2018 1:22 PM LITHOGRAPHIC ETCHER Discharge Instructions Entered On: 03/29/2018 13:23 EST Performed On: 03/29/2018 13:22 EST by Odalys Bush Rn-Ibm Websphere Commerce Developer DC Instructions HWD Discharge Summary Sent to : Joshua [phone] Special Instructions : Report: Joshua [phone] Odalys Bush Rn-Ibm Websphere Commerce Developer - 03/29/2018 13:22 EST Electronically signed by Jorge Alberto [facility] Conversion Chemical Process Equipment Operator Cerner at 05/29/2022 8:39 PM CDT documented in this encounter Plan of Treatment Not on file documented as of this encounter Visit Diagnoses Not on filedocumented in this encounter
--- OUTSIDE RECORDS SUMMARY | 2024-12-29 05:51 | XMS_ITS | Encounter Summary ---
Author Organization [employer] ([place], [place], [place], [place], [place]) Address [address] [place] [address] Care Team Providers Care Jalousie Installer Name Role Phone Unavailable Primary Care Provider Unavailabl e Encounter Details Date Type Department Care Team (Late st Contact Info) Description 03/29/2018 Transcribed Document [facility] [place] Family Medicine [address] [place] [address] ProviderZion MD [address] [place] [id number] Social History Tobacco Use Types Packs/Day Years Used Date Smoking Tobacco: Never Assessed Comments Unknown Sex and Gender Information Value Date Recorded Sex Assigned at Not on file Legal Sex Female 4:39 PM CDT Gender Identity Not on file Sexual Orientation Not on file documented as of this encounter Miscellaneous Notes * Cerner Conversion Note - Historical ProviderMD - 03/29/2018 2:00 AM TANNING WHEEL FILLER Automotive Lube Technician Details Entered On: 03/29/2018 6:43 EST Performed [...]
--- OUTSIDE RECORDS SUMMARY | 2024-12-29 05:52 | XMS_ITS | Encounter Summary ---
Author Organization [employer] ([place], [place], [place], [place], [place]) Address [address] [place] [address] Care Team Providers Care Able Bodied Tankerman Name Role Phone Unavailable Primary Care Provider Unavailabl e Encounter Details Date Type Department Care Team (Late st Contact Info) Description 03/28/2018 Transcribed Document [facility] Family Medicine [facility] [place] [address] ProviderZion MD [address] [place] [address] Social History Tobacco Use Types Packs/Day Years Used Date Smoking Tobacco: Never Assessed Comments Unknown Sex and Gender Information Value Date Recorded Sex Assigned at Not on file Legal Sex Female 4:39 PM CDT Gender Identity Not on file Sexual Orientation Not on file documented as of this encounter Miscellaneous Notes * Cerner Conversion Note - Historical ProviderMD - 03/28/2018 11:06 AM FLOOR COVERER Patient: ETHAN LOREDO Age: 57 Years Sex: [...]
--- OUTSIDE RECORDS SUMMARY | 2024-12-29 05:52 | XMS_ITS | Encounter Summary ---
Author Organization [employer] ([place], [place], [place], [place], [place]) Address [address] [place] [address] Care Team Providers Care Breast Surgeon Name Role Phone Unavailable Primary Care Provider Unavailabl e Encounter Details Date Type Department Care Team (Late st Contact Info) Description 03/28/2018 Transcribed Document [facility] [place] [address] [place] [address] ProviderZion MD [address] [place] [address] Social History Tobacco Use [...] - Historical ProviderMD - 03/28/2018 5:00 PM CLERICAL ORDER FILLER Chart Check - Review Order Profile Entered On: 03/28/2018 16:43 EST Performed On: 03/28/2018 17:00 EST by Ava Schmitt RN Chart Check Chart Reviewed Date and Time : 03/28/2018 16:43 EST Ava Schmitt RN - 03/28/2018 16:43 EST Electronically signed by Jorge Alberto [facility] Conversion Chief Creative Officer Cerner at 05/29/2022 8:40 PM CDT documented in this encounter Plan of Treatment Not on file documented as of this encounter Visit Diagnoses Not on filedocumented in this encounter
--- OUTSIDE RECORDS SUMMARY | 2024-12-29 05:52 | XMS_ITS | Encounter Summary ---
Author Organization [employer] ([place], [place], [place], [place], [place]) Address [address] [place] [address] Care Team Providers Care Servomechanism Designer Name Role Phone Unavailable Primary Care Provider Unavailabl e Encounter Details Date Type Department Care Team (Late st Contact Info) Description 03/28/2018 Transcribed Document [facility] [place] Family Medicine [address] [place] [address] ProviderZion MD [address] [place], [place] [id number] Social History Tobacco Use Types Packs/Day Years Used Date Smoking Tobacco: Never Assessed Comments Unknown Sex and Gender Information Value Date Recorded Sex Assigned at Not on file Legal Sex Female 4:39 PM CDT Gender Identity Not on file Sexual Orientation Not on file documented as of this encounter Miscellaneous Notes * Cerner Conversion Note - Zion ProviderMD - 03/28/2018 6:04 PM JOGGLE PRESS OPERATOR Patient: ETHAN LOREDO Age: 57 years [...] Rocephin: 2 Gram, 100 mL/Hr, IV Piggyback, [id number] Tylenol: 650 mg, Oral, Q4H, PRN: Other [...] Oral, Daily cefTRIAXone 2 Gram, IV Piggyback, [id number] citalopram 20 mg tab 20 mg 1 [...] tomorrow Electronically signed by Vinayak Azul Conversion Rehabilitation Program Manager Cerner at 05/29/2022 8:41 PM CDT documented in this encounter Plan of Treatment Not on file documented as of this encounter Visit Diagnoses Not on filedocumented in this encounter
--- OUTSIDE RECORDS SUMMARY | 2024-12-29 05:52 | XMS_ITS | Encounter Summary ---
Author Organization [employer] ([place], [place], [place], [place], [place]) Address [address] [place] [address] Care Team Providers Care Stone Crusher Operator Name Role Phone Unavailable Primary Care Provider Unavailabl e Encounter Details Date Type Department Care Team (Late st Contact Info) Description 03/28/2018 Transcribed Document [facility] [place] Family Medicine [address] [place] [address] ProviderZion MD [address] [place] [address] Social History Tobacco Use Types [...] - Historical ProviderMD - 03/28/2018 2:01 PM CATERING MANAGER Care Management Assessment/Plan Entered On: 03/28/2018 14:21 EST Performed On: 03/28/2018 14:01 EST by Ninoska Cuellar Rn-Tobacco Stripper Ed Care Management Note Anticipated Discharge Date : 04/03/2018 14:00 EST Care Management Note : CM spoke with Dr. Jones this am and he tells CM that pt is ready for discharge from his standpoint and that ID has a plan in place for IV abx. PT does have a PICC in place. Recieved VM from [facility] p [phone] stating they are interested in pt. CM went to to speak with pt to discuss bed offers. CM presented bed offers and pt tells CM that she really doesn't want to go to another facility. Pt tells CM that she only wants to go to [facility], as she has been there in the past. [facility] had not make bed offer at this time. BLAKE called and spoke with Gama in admissions at [facility] and she tells CM that per her DON, they do not believe they can meet pt's needs at this time. BLAKE pressed for more information and Gama told CM that she would have DON call her. -CM then spoke with MADELYN Corona at [facility] and she states that pt appears too sick at this time to come to their facility. CM provided her with verbal updates, as well as faxed updates f [phone]. She states they will reevaluate now, knowing [...] pt at this time due to the $1492-0608 IV rocephin cost through 05/04/[address] Diaz orders. Cm to follow for ongoing d/c planning/needs. Care Management Note Report : Stew Porras, REGULO - 03/27/18 16:25:12 blayne from [facility] ( [phone]) called to make bed offer. bed offers will be presented to pt 03/28. [place] [place] [phone] Stew Porras, REGULO - 03/27/18 15:00:29 spoke to ID who states pt maybe ready for dc as early as 03/28. id and attending PA are recommending SNF. spoke with pt and her dtr, jazmine and informed them of suggestion from drs to dc to snf for iv abx. pt and dtr in agreement and referrlas made via [facility] to the following counties.... [place]. Stew Porras, REGULO - 03/27/18 10:34:34 RRS-43 + for BROCK CT consulted and per ID, infection must clear prior to any ant surgical intervention Currnelty on rocephin iv w/bld cx pending Documentation Status Complete : Yes Ninoska Cuellar, Rn-Tobacco Stripper Ed - 03/28/2018 14:01 EST Electronically signed by [facility], [facility] Conversion Side Seam Tender Cerner at 05/29/2022 8:46 PM CDT documented in this encounter Plan of Treatment Not on file documented as of this encounter Visit Diagnoses Not on filedocumented in this encounter
--- OUTSIDE RECORDS SUMMARY | 2024-12-29 05:53 | XMS_ITS | Encounter Summary ---
Author Organization [employer] ([place], [place], [place], [place], [place]) Address [address] [place] [address] Care Team Providers Care Bacon Skin Lifter Name Role Phone Unavailable Primary Care Provider Unavailabl e Encounter Details Date Type Department Care Team (Late st Contact Info) Description 03/28/2018 Transcribed Document [facility] [place] [facility] [place] [address] ProviderZion MD [address] [place] [address] [id number] Social History Tobacco Use Types Packs/Day Years Used Date Smoking Tobacco: Never Assessed Comments Unknown Sex and Gender Information Value Date Recorded Sex Assigned at Not on file Legal Sex Female 4:39 PM CDT Gender Identity Not on file Sexual Orientation Not on file documented as of this encounter Miscellaneous Notes * Cerner Conversion Note - Zion ProviderMD - 03/28/2018 12:56 PM DREDGE LEVER OPERATOR Patient: ETHAN CRONIN Age: 57 years Sex: Female : 1960 Associated Diagnoses: None Author: CARROLL HIGH MD-INF Basic Information CC: Sepsis bacteremia 03/19/18 4/4 bottles for Group b strep ([facility]), mitral prosthetic valve endocarditis History of Present Illness 57-year-old white female with history of bladder cancer, atrial flutter, pacemaker placement 2016, hypertension, DM2, COPD, pancreatitis, who recently had blood cultures obtained at [facility] on 03/19/18 for fever which were positive in 4 out of 4 bottles for group B Streptococcus. Patient was to start IV antibiotics but was found to have bradycardia and was admitted to [facility] on 03/23/17. I was consulted on 03/25/17. The patient had been started on vancomycin and Rocephin. Urine culture obtained at [facility] was positive for multiple bacteria consistent [...] cefTRIAXone (Rocephin) - 2 Gram, IV Piggyback, [id number], infuse over 30 Minute(s), Routine Anticoagulant heparin [...] Normal strength, No tenderness. Integumentary: Warm, Dry, [place], No pallor, No rash, Left chest [...] 23) Troponin <0.015 (MAR 23) , ACC: [id number] ORDER: Culture Blood DATE: 03/23/2018 17:49 SOURCE: Blood SITE: Reports Pre 03/27/2018 23:01 No growth at 4 days. Pre 03/26/2018 23:01 No growth at 3 days. Pre 03/25/2018 23:01 No growth at 2 days. Pre 03/24/2018 23:02 No growth at 1 day. Pre 03/24/2018 16:03 Culture less than 24 Hrs old == ACC: [id number] ORDER: Culture Blood DATE: 03/23/2018 17:49 SOURCE: [...] of 4 blood culture bottles positive at [facility] (spoke to Maurice Spencer, at [facility]). BROCK consistent with mitral valve endocarditis, [...] Dr. Perez's service, cardiology, and Dr. Alan.. movie theater manager: Please arrange for outpatient IV antibiotics with Rocephin 2 g IV every 12 hours until 05/04/18. Follow CBC, CMP, CRP weekly while on IV antibiotics. Fax orders to [phone], and call [phone] with final arrangements. Arrange for follow-up with me in 2 weeks post discharge. Electronically signed by Vinayak Azul Conversion Real Estate Executive Assistant Bartolomener at 05/29/2022 8:48 PM CDT documented in this encounter Plan of Treatment Not on file documented as of this encounter Visit Diagnoses Not on filedocumented in this encounter
--- OUTSIDE RECORDS SUMMARY | 2024-12-29 05:53 | XMS_ITS | Encounter Summary ---
Author Organization [employer] ([place], [place], [place], [place], [place]) Address [address] [place] [address] Care Team Providers Care Drop Wirer Name Role Phone Unavailable Primary Care Provider Unavailabl e Encounter Details Date Type Department Care Team (Late st Contact Info) Description 03/28/2018 Transcribed Document [facility] [place] [address] [place] [address] ProviderZion MD [address] [place] [address] Social History Tobacco Use Types [...] - Historical ProviderMD - 03/28/2018 5:00 AM DONKEY RIDE OPERATOR Chart Check - Review Order Profile [...]
--- OUTSIDE RECORDS SUMMARY | 2024-12-29 05:53 | XMS_ITS | Encounter Summary ---
Author Organization [employer] ([place], [place], [place], [place], [place]) Address [address] [place] [address] Care Team Providers Care Physician Support Coordinator Name Role Phone Unavailable Primary Care Provider Unavailabl e Encounter Details Date Type Department Care Team (Late st Contact Info) Description 03/28/2018 Transcribed Document [facility] Family Medicine [address] [place] [address] ProviderZion MD [address] [place], [place] [...] - Historical ProviderMD - 03/28/2018 8:22 PM FINAL CANOE INSPECTOR Care Management Assessment/Plan Entered On: 03/28/2018 20:23 EST Performed On: 03/28/2018 20:22 EST by Ninoska Cuellar Rn-Rumper Ed Care Management Note Anticipated Discharge Date : 04/03/2018 14:00 EST Care Management Note : CM faxed orders to [facility] for IV abx f [phone] per orders. CM will need to call [facility] to notify them of final d/c plan per orders p [phone]. CM to follow for ongoing d/c planning/needs. Care Management Note Report : Ninoska Cuellar, Rn-Rumper Ed - 03/28/18 18:12:15 CM recieved call from Gama at [facility] stating they can take pt at their facility, but not until Saturday, as they now have an agreement with [facility]. CM then spoke with Edie from [facility] and she again confirms they can accept pt at their facility tomorrow. CM updated pt and now pt is agreeable to go to [facility]. She also gave CM permission to speak with Jazmine joshi by phone p [phone]. CM spoke with Jazmine and she is agreeable with plan for [facility], stating its much closer to them, approx 30 min. Pt tells CM that her PCP, Dr. Davis had told her that she was not able to do IV abx from home. Discharge plan will be to go to [facility] in the am. CM updated Dr. Stauffer and he reports he will notify [facility] for tomorrow. CM will cont to follow for ongoing d/c planning/needs. Ninoska Cuellar, Rn-Rumper Ed - 03/28/18 16:01:02 [facility] Clem states home cost for Rocephin is $3.70/wk. She states they may be able to contract with SNF to provide abx at pt's cost. She asked CM to have SNF call Paulo at their office to see about arranging. CM called MADELYN Corona with [facility] and she will call [facility] to see if this can be arranged. Updated BS RN, Ava. CM will cont to follow. Ninoska Cuellar, Rn-Rumper Ed - 03/28/18 14:57:29 Called [facility] and spoke with Chiquita and updated her on IV abx needs. SHe will check cost and call CM back to see if bed offer is still on the table. CM left for [facility] with [facility] to update her, left requesting return phone call. CM updated pt and she appears discouraged that [facility] will not accept her as a pt. She tells CM that she is considering just going home. BLAKE also called Clem with [facility] to argueta abx at home. She states that [facility] may also be able to contract with facility to provide them with abx at their cost. CM faxed info on pt and abx to [facility] f [phone]. CM updated BS RNAva. CM will cont to follow. Ninoska Cuellar, Rn-Rumper Ed - 03/28/18 14:21:[address] Jones this am and he tells CM that pt is ready for discharge from his standpoint and that ID has a plan in place for IV abx. PT does have a PICC in place. Recieved VM from [facility] with [employer] p [phone] stating they are interested in pt. CM went to BS to speak with pt to discuss bed offers. CM presented bed offers and pt tells CM that she really doesn't want to go to another facility. Pt tells CM that she only wants to go to [facility], as she has been there in the past. [facility] had not make bed offer at this time. CM called and spoke with Gama in admissions at [facility] and she tells CM that per her DON, they do not believe they can meet pt's needs at this time. CM pressed for more information and Gama told CM that she would have DON call her. -CM then spoke with MADELYN Corona at [facility] and she states that pt appears too sick at this time to come to their facility. CM provided her with verbal updates, as well as faxed updates f [phone]. She states they will reevaluate now, knowing [...] pt at this time due to the $7250-5977 IV rocephin cost through 05/04/[address] Diaz orders. Cm to follow for ongoing d/c planning/needs. Stew Porras, RN - 03/27/18 16:25:12 edie from [facility] ([phone] ex [phone]) called to make bed offer. bed offers will be presented to pt 03/28. dtr will provide transportationashely [phone] Stew Porras, RN - 03/27/18 15:00:29 spoke to ID who states pt maybe ready for dc as early as 03/28. id and attending PA are recommending SNF. spoke with pt and her dtr, jazmine and informed them of suggestion from drs to dc to snf for iv abx. pt and dtr in agreement and referrlas made via [facility] to the following counties.... [place]. Stew Porras, RN - 03/27/18 10:34:34 RRS-43 + for BROCK CT consulted and per ID, infection must clear prior to any ant surgical intervention Currnelty on rocephin iv w/bld cx pending Documentation Status Complete : Yes Ninoska Cuellar, Rn-Rumper Ed - 03/28/2018 20:22 EST Electronically signed by Jorge Alberto [facility] Conversion Track Worker Cerner at 05/29/2022 8:32 PM CDT documented in this encounter Plan of Treatment Not on file documented as of this encounter Visit Diagnoses Not on filedocumented in this encounter
--- NOTE | 2024-12-29 05:54 | HMH.EDGENADL ---
Discharge Plan Disposition Patient Disposition: Home, Self-Care Prescriptions Prescriptions: No Action (DME) True Metrix Glucose Test Strip Strip See Rx Instructions .ROUTE .MEDSUPPLY Qty: 10 Rx Instructions: As directed (DME) insulin syringe-needle U-100 1 mL 31 gauge x 5/16 syringe See Rx Instructions .ROUTE .MEDSUPPLY Qty: 10 Rx Instructions: As directed (DME) Dexcom G7 Sensor Device See Rx Instructions .ROUTE .MEDSUPPLY Qty: 1 Patient Comments: USE DIRECTED CHANGING EVERY 10 DAYS Rx Instructions: As directed atorvastatin [Lipitor] 40 mg tablet 40 mg PO HS ropinirole 1 mg tablet 1 mg PO HS citalopram 20 mg tablet 20 mg PO HS ondansetron HCl 4 mg tablet 4 mg PO Q6HP PRN (Reason: Nausea And Vomiting) clopidogrel 75 mg tablet 75 mg PO DAILY amiodarone 200 mg tablet 400 mg PO BID polyethylene glycol 3350 [Miralax] 17 gram powder in packet 17 g PO DAILY Metamucil 3.4 gram/5.4 gram powder 1 tbsp PO DAILY albuterol sulfate 90 mcg/actuation HFA aerosol inhaler 2 inh inhalation QID PRN (Reason: shortness of breath or wheezing) 90 Days Qty: 8.5 2RF pantoprazole [Protonix] 40 mg tablet,delayed release (DR/EC) 40 mg PO HS alprazolam 0.25 mg tablet 0.25 mg PO BID Qty: 60 1RF hydrocodone-acetaminophen 5-325 mg tablet 1 tab PO Q6HP PRN (Reason: Moderate Pain (Scale Score 5-6)) Qty: 120 0RF Lokelma 10 gram powder in packet 10 g PO TID 2 Days Qty: 11 2RF Lokelma 10 gram powder in packet 10 g PO DAILY Qty: 30 2RF Rx Instructions: start daily dose after 2 days of TID penicillin V potassium 250 mg tablet 250 mg PO BID cyanocobalamin (vitamin B-12) 100 mcg Tablet 100 mcg PO DAILY folic acid 1 mg Tablet 1 mg PO DAILY mirtazapine 15 mg tablet 15 mg PO HS Pro-Stat AWC 17-100 gram-kcal/30 mL Liquid In Packet 1 ea PO DAILY bumetanide 2 mg tablet 2 mg PO DAILY 30 Days Qty: 30 0RF levofloxacin 750 mg tablet 750 mg PO DAILY Qty: 2 0RF dapagliflozin propanediol [Farxiga] 10 mg tablet 10 mg PO DAILY Qty: 30 0RF midodrine 10 mg tablet 5 mg PO BID 30 Days Qty: 0 0RF Referrals Follow up/Referrals: Herb Toney MD [Physician, Ear, Nose, Throat] - See instructions Jacob Holder MD [Primary Care Provider, [facility]] - See instructions Activity Restrictions/Add. Instructions Additional Instructions/Restrictions: There is evidence of a small nasal bone fracture otherwise no other significant traumatic abnormalities found on today's exam. Local wound care is adequate for superficial wounds this includes soap and water and Neosporin on extremity injuries or direct pressure on her lip injuries if she continues to bleed. Clinical Impressions Clinical Impression: Fall, Skin tear, Fracture of nasal bone CKD (chronic kidney disease) Qualifiers: Chronic kidney disease stage: stage 3 (moderate) Chronic kidney disease stage 3 subtype: stage 3a (GFR 45-59) Qualified Code(s): N18.31 - Chronic kidney disease, stage 3a Print Language Print Language: Singaporean Discharge ED Provider: Christopher House General Adult HPI <Christopher House MD - Last Filed: 12/29/24 06:51> General Chief complaint: Fall Stated complaint: Fall Time Seen by Provider: 12/29/24 05:45 History of Present Illness HPI narrative: 64-year-old female with history of nonalcoholic steatohepatitis, poorly controlled diabetes, elevated liver enzymes, pancreatic lesion, previous bladder cancer with urostomy after bladder removal, CKD, paroxysmal A-fib, CHF, ICD, PAD, COPD presents to the ER after a fall. Patient takes Eliquis and Plavix. Patient reports she was getting out of bed when her feet got tangled in the blankets and she fell forward. She did not catch herself on the way down so she struck her face on the floor. Denies loss of consciousness. Patient has bleeding from the nose and has dressings on her right knee and left upper extremity. EMS reports patient has skin tears on the extremities that were bleeding hence the dressings. She is holding pressure on her nose with a washcloth. EMS reports patient was hemodynamically stable during transportation, GCS 15. They did not apply c-collar because they were able to clear her C-spine on scene. Patient denies any headache or dizziness, no numbness, tingling, or weakness. She states none of her teeth feel loose or missing. She has no pain inside the mouth. She has no neck pain or back pain, no chest pain or difficulty breathing though she is a COPD patient and typically uses albuterol. She denies any baseline oxygen requirement. She denies abdominal pain, nausea, odor, or diarrhea. She has a history of bladder cancer but still makes urine through her urostomy. She notes her kidneys have been getting progressively worse. She denies pain in the extremities. Unclear last tetanus shot. Denies any recent illness. No other complaints or concerns. Related Data Home Medications ?Medication ?Instructions ?Recorded ?Confirmed blood sugar diagnostic (True #10 ea 04/22/24 12/28/24 Metrix Glucose Test Strip) blood-glucose sensor ([employer] [place] G7 #1 ea 04/22/24 12/28/24 Sensor device) insulin syringe-needle U-100 1 mL #10 ea 04/22/24 12/28/24 31 gauge x 5/16 pantoprazole 40 mg tablet,delayed 40 mg PO HS 10/07/24 12/28/24 release (Protonix) atorvastatin 40 mg tablet (Lipitor) 40 mg PO HS 10/08/24 12/28/24 citalopram 20 mg tablet 20 mg PO HS 10/08/24 12/28/24 clopidogrel 75 mg tablet 75 mg PO DAILY 10/08/24 12/28/24 ondansetron HCl 4 mg tablet 4 mg PO Q6HP PRN Nausea And 10/08/24 12/28/24 Vomiting ropinirole 1 mg tablet 1 mg PO HS 10/08/24 12/28/24 amino acids-protein hydrolysate 17 1 ea PO DAILY 11/16/24 12/28/24 gram-100 kcal/30 mL liquid packet (Pro-Stat AWC) cyanocobalamin (vitamin B-12) 100 100 mcg PO DAILY 11/16/24 12/28/24 mcg tablet folic acid 1 mg tablet 1 mg PO DAILY 11/16/24 12/28/24 mirtazapine 15 mg tablet 15 mg PO HS 11/16/24 12/28/24 penicillin V potassium 250 mg 250 mg PO BID 11/16/24 12/28/24 tablet amiodarone 200 mg tablet 400 mg PO BID 12/16/24 12/28/24 polyethylene glycol 3350 17 gram 17 g PO DAILY 12/16/24 12/28/24 oral powder packet (Miralax) psyllium husk 3.4 gram/5.4 gram 1 tbsp PO DAILY 12/16/24 12/28/24 oral powder (Metamucil) Previous Rx's ?Medication ?Instructions ?Recorded albuterol sulfate 90 mcg/actuation 2 inh inhalation QID PRN shortness 07/09/24 aerosol inhaler of breath or wheezing 90 days #8.5 grams bumetanide 2 mg tablet 2 mg PO DAILY 30 days #30 tabs 11/18/24 dapagliflozin propanediol 10 mg 10 mg PO DAILY #30 tabs 11/18/24 tablet (Farxiga) levofloxacin 750 mg tablet 750 mg PO DAILY #2 tabs 11/18/24 midodrine 10 mg tablet 5 mg (1/2 x 10 mg) PO BID 30 days 11/18/24 #0 tabs alprazolam 0.25 mg tablet 0.25 mg PO BID #60 tabs 11/24/24 hydrocodone 5 mg-acetaminophen 325 1 tab PO Q6HP PRN Moderate Pain 12/01/24 mg tablet (Scale Score 5-6) #120 tabs sodium zirconium cyclosilicate 10 10 g PO DAILY #30 ea 12/21/24 gram oral powder packet (Lokelma) sodium zirconium cyclosilicate 10 10 g PO TID 2 days #11 ea 12/21/24 gram oral powder packet (Lokelma) Allergies Allergy/AdvReac Type Severity Reaction Status Date / Time No Known Allergies Allergy Verified 12/28/24 11:05 [facility] <Christopher House MD - Last Filed: 12/29/24 06:51> [facility] Disclaimer: The information contained in this section may have been updated after the patient was seen, as this information can be updated by other users. Medical History Acute hyperkalemia YAO (nonalcoholic steatohepatitis) ICD (implantable cardioverter-defibrillator) discharge CKD (chronic kidney disease) STACY (acute kidney injury) Fracture of pubic ramus Anemia Generalized weakness Diabetes mellitus Pulmonary embolism Neuropathic pain Failure to thrive Shock Impaired ambulation Self-care deficit Marijuana smoker Pulmonary embolism on left Smoking greater than 30 pack years Pulmonary emphysema Chronic kidney disease Atrial fibrillation Acute respiratory failure with hypoxia Pleural effusion on right Chronic endocarditis Acute on chronic HFrEF (heart failure with reduced ejection fraction) Coronary artery disease Right kidney mass Pancreatic mass Dental abscess Pain, dental Hematuria Nausea vomiting and diarrhea Hypovolemia Infection due to extended-spectrum [id number] Klebsiella pneumoniae Yeast infection of the vagina STACY (acute kidney injury) labs at baseline Cellulitis Candidiasis Presence of urostomy Vitamin D deficiency Bacterial endocarditis Obesity (BMI 30.0-34.9) Gastroenteritis due to norovirus Bacteremia Pacemaker Bladder cancer Diarrhea UTI (urinary tract infection) Dehydration Abscess of skin or subcutaneous tissue Valvular heart disease Palpitations Myocardial infarction HTN (hypertension), benign Depression CHF (congestive heart failure) Anxiety PAD (peripheral artery disease) Abnormal ankle brachial index (GOMEZ) HHD (hypertensive heart disease) HLD (hyperlipidemia) Carotid bruit Carotid artery stenosis Surgical History S/P ileal conduit (~12/2020) H/O tricuspid valve repair History of insertion of stent into coronary artery bypass graft History of urostomy Hx of cholecystectomy H/O: hysterectomy Hx of tonsillectomy History of mitral valve replacement S/P left atrial appendage ligation AICD (automatic cardioverter/defibrillator) present History of coronary artery bypass graft Family History Other Cancer Diabetes Heart attack Social History Smoking Status: Current every day smoker tobacco type: cigarettes packs per day: 1 second hand exposure: Yes alcohol intake: never substance use type: marijuana current occupational status: disabled Travel in the last 8 weeks?: None household members: family housing: house number of children: 2 current occupational exposures/hazards: No caffeine: Yes Have you lived/traveled outside [place] in past 30 days?: No Contact w/someone who lives/traveled outside US past 30 days?: No Exposure to someone with infectious disease in past 14 days?: No Do you have a fever (greater than 100.4 F or 38 C)?: No Have you tested positive for COVID-19?: No Exposed to someone with COVID-19 in past 14 days?: No Do you have a sore throat?: No Do you have a cough?: No Do you have any weakness?: No Do you have any diarrhea?: No Are you experiencing any unusual bleeding?: No Do you have any muscle aches/pain?: Yes Do you have any abdominal pain?: No Are you experiencing loss of taste or smell?: No Other Medical History Have you received the Flu Vaccine for this season: No Have you received the Pneumonia Vaccine: Yes <Christopher House MD - Last Filed: 12/29/24 06:51> ROS Obtained: Yes Systems reviewed as appropriate & no additional complaints except as documented Per HPI Physical Exam <Christopher House MD - Last Filed: 12/29/24 06:51> General General appearance: alert and in no apparent distress Head Head exam: atraumatic and normocephalic Eye Eye exam: Present PERRL and EOMI ENT ENT exam: Present mucous membranes moist Expanded ENT Exam Nasal speculum exam: Bilateral: epistaxis (Now hemostatic) Mouth exam: Present other (Abrased skin at the medial aspect of the upper lip) Teeth exam: Absent fractured tooth # or dental tenderness # Neck Neck exam: Present normal inspection and full ROM; Absent tenderness Chest Chest inspection: Present symmetric chest wall rise Respiratory Respiratory exam: Present wheezes (Diffuse and expiratory); Absent respiratory distress or stridor Cardiovascular Cardiovascular exam: Present regular rate and normal rhythm Abdominal Exam Abdominal exam: Present soft; Absent distention or tenderness Comment: Urostomy present right lower quadrant with clear yellow urine Extremities Exam Extremities exam: Present full ROM, normal capillary refill, edema (+1 bilateral lower extremity pitting edema) and other (Multiple skin tears along the ulnar aspect of the left forearm, single skin tear on the left and right knee each. All skin tears are hemostatic. Superficial. No gaping lacerations. Neurovascularly intact throughout.); Absent joint swelling Back Exam Back exam: Absent tenderness Neurological Exam Neurological exam: Present alert, oriented X3 and other (GCS 15 NIH 0); Absent motor sensory deficit Psychiatric Psychiatric exam: Present normal affect and normal mood Skin Skin exam: Present warm and dry Medical Decision Making <Christopher House MD - Last Filed: 12/29/24 06:51> Medical Records Medical records reviewed: Yes I reviewed the patient's medical records. Screening: Per USPSTF and CDC recommendations, given the prevalence of disease in our region, it is our hospital?s policy to screen for HIV and viral Hepatitis for all patients aged 18 and over and those with ongoing risk factors. MR Comment: Gradual worsening of CKD, most recent GFR has been in the teens. [place] Inquiry Pt receiving controlled substance: No Vital Signs: 12/29/24 05:31 12/29/24 05:46 12/29/24 05:56 Temperature 98.1 F Temperature Source Temporal Artery Scan Pulse Rate Pulse Rate [Left] 94 H Respiratory Rate 20 Blood Pressure Blood Pressure [Right Arm] 130/72 130/72 Blood Pressure Mean Blood Pressure Mean [Right Arm] 91 91 Blood Pressure Source [Right Arm] Manual Cuff/ Auscultation Manual Cuff/ Auscultation Blood Pressure Position [Right Arm] Sitting 02 Sat by Pulse Oximetry 100 100 Oxygen Delivery Method Room Air Room Air 12/29/24 05:56 12/29/24 06:00 12/29/24 07:00 Temperature Temperature Source Pulse Rate 96 H 100 H 65 Pulse Rate [Left] Respiratory Rate 17 17 Blood Pressure 130/71 111/63 136/73 Blood Pressure [Right Arm] Blood Pressure Mean 78 79 94 Blood Pressure Mean [Right Arm] Blood Pressure Source [Right Arm] Blood Pressure Position [Right Arm] 02 Sat by Pulse Oximetry 100 100 98 Oxygen Delivery Method 12/29/24 07:30 12/29/24 08:00 12/29/24 08:30 Temperature Temperature Source Pulse Rate 100 H 97 H Pulse Rate [Left] Respiratory Rate 12 Blood Pressure 123/73 129/67 120/66 Blood Pressure [Right Arm] Blood Pressure Mean 84 Blood Pressure Mean [Right Arm] Blood Pressure Source [Right Arm] Blood Pressure Position [Right Arm] 02 Sat by Pulse Oximetry 100 100 Oxygen Delivery Method 12/29/24 09:00 Temperature Temperature Source Pulse Rate 97 H Pulse Rate [Left] Respiratory Rate 12 Blood Pressure 127/65 Blood Pressure [Right Arm] Blood Pressure Mean Blood Pressure Mean [Right Arm] Blood Pressure Source [Right Arm] Blood Pressure Position [Right Arm] 02 Sat by Pulse Oximetry 100 Oxygen Delivery Method Lab Data Lab Results 12/29/24 05:47: VBG pH 7.34, VBG pCO2 46.8, VBG pO2 46.2 H, VBG HCO3 24.7, VBG Total CO2 26.1, VBG O2 Saturation 79.1 H, VBG Base Excess -1.1, VBG Lactic Acid 2.3 H 12/29/24 06:04: WBC 10.9 H, RBC 3.38 L, Hgb 8.8 L, Hct 29.3 L, MCV 86.7, MCH 26.0 L, MCHC 30.0 L, RDW 19.0 H, Plt Count 354, MPV 10.6 H, Neut % (Auto) 85.9 H, Lymph % (Auto) 7.9 L, Larue % (Auto) 5.4, Eos % (Auto) 0.1, Baso % (Auto) 0.1, Neut # (Auto) 9.4 H, Lymph # (Auto) 0.9, Larue # (Auto) 0.6, Eos # (Auto) 0.0, Baso # (Auto) 0.0, PT 11.6, INR 1.05, APTT 22.8, Sodium 141, Potassium 4.1, Chloride 103, Carbon Dioxide 26, Anion Gap 16.1 H, BUN 102 H*, Creatinine 3.00 H, Estimated Creat Clear 25, Estimated GFR 16 L*, Est GFR ( Amer) 19 L*, Glucose 134 H, Calcium 8.8, Total Bilirubin 0.6, AST 34, ALT 42, Alkaline Phosphatase 204 H, Troponin I 0.02, Total Protein 7.0, Albumin 4.2, Globulin 2.8, Albumin/Globulin Ratio 1.5 12/29/24 06:04 12/29/24 06:04 Orders (Tests/Meds): ED MEDICATIONS Generic Name Dose Route Start Last Admin Trade Name Freq PRN Reason Stop Dose Admin Sodium Chloride 10 ml 12/29/24 05:44 Sodium Chloride 0.9% 10ml Flush Syringe IV 01/28/25 05:43 NEEDED PRN Maintain IV Site Discontinued Medications Generic Name Dose Route Start Last Admin Trade Name Freq PRN Reason Stop Dose Admin Albuterol/Ipratropium 3 ml 12/29/24 05:47 Ipratropium/Albuterol 3 Ml Neb IH 12/29/24 05:48 ONCE ONE Bacitracin 1 gm 12/29/24 06:13 12/29/24 06:28 Bacitracin Zinc Oint 30gm Tube TP 12/29/24 06:14 1 gm ONCE ONE Administration Lactated Ringer's 1,000 mls @ 999 mls/hr 12/29/24 06:03 12/29/24 07:21 Lactated Ringer's 1000 Ml Bag IV 12/29/24 07:03 Infused .Q1H1M ONE Infusion Iopamidol 80 ml 12/29/24 07:04 12/29/24 07:05 Iopamidol-370 (76%);100ml Bottle IV 12/29/24 07:05 80 ml ONCE ONE Administration Oxymetazoline HCl 0.5 ml 12/29/24 05:47 12/29/24 06:10 Oxymetazoline Nasal [place] 0.05% 15ml NS 12/29/24 05:48 0.5 ml ONCE ONE Administration Sodium Chloride 50 ml 12/29/24 07:04 12/29/24 07:05 0.9 % Sodium Chloride 50 Ml Vial IV 12/29/24 07:05 50 ml ONCE ONE Administration Sodium Chloride 10 ml 12/29/24 07:04 12/29/24 07:05 Sodium Chloride 0.9% 10ml Syr (Rad Only) IV 12/29/24 07:05 10 ml ONCE ONE Administration Tetanus/Reduced Diphtheria/Acell Pertussis 0.5 ml 12/29/24 05:47 12/29/24 06:10 Tet/Diphth/Pert-Adult 0.5ml Syringe IM 12/29/24 05:48 0.5 ml .ONCE ONE Administration ORDERS Category Date Time Status CT angio abd/pel - TRAUMA Stat Cat Scan 12/29/24 05:[address] angio chest - dissection Stat Cat Scan 12/29/24 05:[address] cervical spine wo con Stat Cat Scan 12/29/24 05:[address] facial bones wo con Stat Cat Scan 12/29/24 05:[address] head/brain wo con Stat Cat Scan 12/29/24 05:44 Completed Forearm XR left 2 views [XR forearm LT 2V] Stat Exams 12/29/24 06:13 Completed Knee XR right 3 views [XR knee RT 3V] Stat Exams 12/29/24 06:13 Completed POCUS Point of Care (ER Only) Stat Exams 12/29/24 05:44 Completed XR chest portable Stat Exams 12/29/24 05:44 Completed XR knee LT 3V Stat Exams 12/29/24 06:13 Completed XR pelvis 1-2V Stat Exams 12/29/24 05:44 Completed Activated Partial Thrombo Time Stat Lab 12/29/24 06:04 Completed Complete Blood Count Auto Diff Stat Lab 12/29/24 06:04 Completed Comprehensive Metabolic Panel Stat Lab 12/29/24 06:04 Completed Prothrombin Time INR Stat Lab 12/29/24 06:04 Completed Troponin I Stat Lab 12/29/24 06:04 Completed VBG [Venous Blood Gas] Stat RT 12/29/24 05:47 Completed Medical Decision Narrative: In summary, this 64-year-old female with comorbidities described in the HPI presents to the emergency department today with concerns of potential injuries after mechanical fall at the [facility]. Patient presented as a trauma alert. I was at bedside upon the patient's arrival. Airway intact, bilateral breath sounds present, 2+ right radial pulse. Hemodynamically stable, afebrile, GCS 15, NIH 0, no neurologic deficits, [id number] ultrasound personally performed and interpreted as E-FAST negative within the limitations of the exam, unable to get a good pelvic view due to patient's multiple previous abdominal surgeries. Secondary exam notable for abrasion on the upper lip, epistaxis had been present in bilateral naris but not actively bleeding at this time, skin tears on the left upper extremity and bilateral knees. Remainder of secondary exam is negative for other acute traumatic injury. Differential diagnosis includes but is not limited to intracranial bleed, facial fractures, though patient has no cervical spine pain I did consider the possibility of cervical spine injury, because the E-FAST was limited due to previous abdominal surgeries I was unable to get a good pelvic view, I did consider the possibility of intra-abdominal bleed, solid organ injury or hollow viscus injury as well as the possibility of intrathoracic injury though I have lower suspicion for these since patient is hemodynamically stable. She is wheezing and with a history of COPD will receive DuoNeb. She also has a past cardiac history and will receive a brief cardiac workup with EKG and cardiac enzymes. Based on these concerns, I ordered hematologic and serum labs, cardiac workup, x-rays, CTs including angiography. ECG personally interpreted demonstrates atrial fibrillation, rate 99, normal QTc, significant artifact limits the interpretation of ECG otherwise. See repeat ECG. Patient received DuoNebs, IV fluids for treatment. None of the wounds require laceration repair, bacitracin applied and dressings applied. Tdap booster administered. I discussed my recommendation for contrasted exams with the patient since she does have a history of worsening kidney function. She has had contrasted exams in October and November and tolerated the contrast, but I explained to her the risk of contrast-induced nephropathy potentially worsening her kidney function and causing her to need dialysis. I also discussed the potential for missing a potentially life-threatening injury since I am not able to get good ultrasound images of her abdomen and the contrasted exam would help me visualize this better. Patient chose to have contrast administered to rule out potentially dangerous traumatic injury though she understands it could worsen her kidney function and potentially cause her to need dialysis. Chest and pelvis x-ray personally interpreted do not demonstrate acute traumatic injury, specifically I do not appreciate pneumothorax, hemothorax, or displaced rib fracture on the chest x-ray, no open book pelvic fracture on the pelvis x-ray. See radiology reads for final interpretations. CT head personally interpreted demonstrates no acute intracranial bleed, mass, or midline shift. CT facial bone does not appear to demonstrate displaced nasal fracture on my personal interpretation. CT C-spine does not demonstrate acute traumatic injury on my personal interpretation. Radiology reads and additional studies pending. Labs reviewed by me demonstrate mild leukocytosis WBC 10.9 which is not acutely actionable, hemoglobin 8.8 stable from 8 days ago, normal platelets, pH 7.34, pCO2 normal, VBG lactic 2.3 but patient is already receiving IV fluids. Patient's kidney function is stable from a few days ago. BUN 102, creatinine 3.0 was actually slightly improved. GFR 16 slightly improved from 13 4 days ago. Alkaline phosphatase chronically elevated. No hyperbilirubinemia or other transaminitis. Troponin 0.02. Additional imaging and radiology results pending at time of physician handoff. Patient handed off to Dr. Valentine in stable condition for continued management and disposition. <Umer Valentine MD - Last Filed: 12/29/24 09:20> Vital Signs: 12/29/24 05:31 12/29/24 05:46 12/29/24 05:56 Temperature 98.1 F Temperature Source Temporal Artery Scan Pulse Rate Pulse Rate [Left] 94 H Respiratory Rate 20 Blood Pressure Blood Pressure [Right Arm] 130/72 130/72 Blood Pressure Mean Blood Pressure Mean [Right Arm] 91 91 Blood Pressure Source [Right Arm] Manual Cuff/ Auscultation Manual Cuff/ Auscultation Blood Pressure Position [Right Arm] Sitting 02 Sat by Pulse Oximetry 100 100 Oxygen Delivery Method Room Air Room Air 12/29/24 05:56 12/29/24 06:00 12/29/24 07:00 Temperature Temperature Source Pulse Rate 96 H 100 H 65 Pulse Rate [Left] Respiratory Rate 17 17 Blood Pressure 130/71 111/63 136/73 Blood Pressure [Right Arm] Blood Pressure Mean 78 79 94 Blood Pressure Mean [Right Arm] Blood Pressure Source [Right Arm] Blood Pressure Position [Right Arm] 02 Sat by Pulse Oximetry 100 100 98 Oxygen Delivery Method 12/29/24 07:30 12/29/24 08:00 12/29/24 08:30 Temperature Temperature Source Pulse Rate 100 H 97 H Pulse Rate [Left] Respiratory Rate 12 Blood Pressure 123/73 129/67 120/66 Blood Pressure [Right Arm] Blood Pressure Mean 84 Blood Pressure Mean [Right Arm] Blood Pressure Source [Right Arm] Blood Pressure Position [Right Arm] 02 Sat by Pulse Oximetry 100 100 Oxygen Delivery Method 12/29/24 09:00 Temperature Temperature Source Pulse Rate 97 H Pulse Rate [Left] Respiratory Rate 12 Blood Pressure 127/65 Blood Pressure [Right Arm] Blood Pressure Mean Blood Pressure Mean [Right Arm] Blood Pressure Source [Right Arm] Blood Pressure Position [Right Arm] 02 Sat by Pulse Oximetry 100 Oxygen Delivery Method Lab Data Lab results reviewed: Yes I reviewed the patient's lab results. Lab Results 12/29/24 05:47: VBG pH 7.34, VBG pCO2 46.8, VBG pO2 46.2 H, VBG HCO3 24.7, VBG Total CO2 26.1, VBG O2 Saturation 79.1 H, VBG Base Excess -1.1, VBG Lactic Acid 2.3 H 12/29/24 06:04: WBC 10.9 H, RBC 3.38 L, Hgb 8.8 L, Hct 29.3 L, MCV 86.7, MCH 26.0 L, MCHC 30.0 L, RDW 19.0 H, Plt Count 354, MPV 10.6 H, Neut % (Auto) 85.9 H, Lymph % (Auto) 7.9 L, Larue % (Auto) 5.4, Eos % (Auto) 0.1, Baso % (Auto) 0.1, Neut # (Auto) 9.4 H, Lymph # (Auto) 0.9, Larue # (Auto) 0.6, Eos # (Auto) 0.0, Baso # (Auto) 0.0, PT 11.6, INR 1.05, APTT 22.8, Sodium 141, Potassium 4.1, Chloride 103, Carbon Dioxide 26, Anion Gap 16.1 H, BUN 102 H*, Creatinine 3.00 H, Estimated Creat Clear 25, Estimated GFR 16 L*, Est GFR ( Amer) 19 L*, Glucose 134 H, Calcium 8.8, Total Bilirubin 0.6, AST 34, ALT 42, Alkaline Phosphatase 204 H, Troponin I 0.02, Total Protein 7.0, Albumin 4.2, Globulin 2.8, Albumin/Globulin Ratio 1.5 Orders (Tests/Meds): ED MEDICATIONS Generic Name Dose Route Start Last Admin Trade Name Freq PRN Reason Stop Dose Admin Sodium Chloride 10 ml 12/29/24 05:44 Sodium Chloride 0.9% 10ml Flush Syringe IV 01/28/25 05:43 NEEDED PRN Maintain IV Site Discontinued Medications Generic Name Dose Route Start Last Admin Trade Name Freq PRN Reason Stop Dose Admin Albuterol/Ipratropium 3 ml 12/29/24 05:47 Ipratropium/Albuterol 3 Ml Neb IH 12/29/24 05:48 ONCE ONE Bacitracin 1 gm 12/29/24 06:13 12/29/24 06:28 Bacitracin Zinc Oint 30gm Tube TP 12/29/24 06:14 1 gm ONCE ONE Administration Lactated Ringer's 1,000 mls @ 999 mls/hr 12/29/24 06:03 12/29/24 07:21 Lactated Ringer's 1000 Ml Bag IV 12/29/24 07:03 Infused .Q1H1M ONE Infusion Iopamidol 80 ml 12/29/24 07:04 12/29/24 07:05 Iopamidol-370 (76%);100ml Bottle IV 12/29/24 07:05 80 ml ONCE ONE Administration Oxymetazoline HCl 0.5 ml 12/29/24 05:47 12/29/24 06:10 Oxymetazoline Nasal [place] 0.05% 15ml NS 12/29/24 05:48 0.5 ml ONCE ONE Administration Sodium Chloride 50 ml 12/29/24 07:04 12/29/24 07:05 0.9 % Sodium Chloride 50 Ml Vial IV 12/29/24 07:05 50 ml ONCE ONE Administration Sodium Chloride 10 ml 12/29/24 07:04 12/29/24 07:05 Sodium Chloride 0.9% 10ml Syr (Rad Only) IV 12/29/24 07:05 10 ml ONCE ONE Administration Tetanus/Reduced Diphtheria/Acell Pertussis 0.5 ml 12/29/24 05:47 12/29/24 06:10 Tet/Diphth/Pert-Adult 0.5ml Syringe IM 12/29/24 05:48 0.5 ml .ONCE ONE Administration ORDERS Category Date Time Status CT angio abd/pel - TRAUMA Stat Cat Scan 12/29/24 05:[address] angio chest - dissection Stat Cat Scan 12/29/24 05:[address] cervical spine wo con Stat Cat Scan 12/29/24 05:[address] facial bones wo con Stat Cat Scan 12/29/24 05:[address] head/brain wo con Stat Cat Scan 12/29/24 05:44 Completed Forearm XR left 2 views [XR forearm LT 2V] Stat Exams 12/29/24 06:13 Completed Knee XR right 3 views [XR knee RT 3V] Stat Exams 12/29/24 06:13 Completed POCUS Point of Care (ER Only) Stat Exams 12/29/24 05:44 Completed XR chest portable Stat Exams 12/29/24 05:44 Completed XR knee LT 3V Stat Exams 12/29/24 06:13 Completed XR pelvis 1-2V Stat Exams 12/29/24 05:44 Completed Activated Partial Thrombo Time Stat Lab 12/29/24 06:04 Completed Complete Blood Count Auto Diff Stat Lab 12/29/24 06:04 Completed Comprehensive Metabolic Panel Stat Lab 12/29/24 06:04 Completed Prothrombin Time INR Stat Lab 12/29/24 06:04 Completed Troponin I Stat Lab 12/29/24 06:04 Completed VBG [Venous Blood Gas] Stat RT 12/29/24 05:47 Completed Medical Decision Narrative: In summary, this 64-year-old female with comorbidities described in the HPI presents to the emergency department today with concerns of potential injuries [facility]. Patient presented as a trauma alert. I was at bedside upon the patient's arrival. Airway intact, bilateral breath sounds present, 2+ right radial pulse. Hemodynamically stable, afebrile, GCS 15, NIH 0, no neurologic deficits, cambd-up-itxe ultrasound personally performed and interpreted as E-FAST negative within the limitations of the exam, unable to get a good pelvic view due to patient's multiple previous abdominal surgeries. Secondary exam notable for abrasion on the upper lip, epistaxis had been present in bilateral naris but not actively bleeding at this time, skin tears on the left upper extremity and bilateral knees. Remainder of secondary exam is negative for other acute traumatic injury. Differential diagnosis includes but is not limited to intracranial bleed, facial fractures, though patient has no cervical spine pain I did consider the possibility of cervical spine injury, because the E-FAST was limited due to previous abdominal surgeries I was unable to get a good pelvic view, I did consider the possibility of intra-abdominal bleed, solid organ injury or hollow viscus injury as well as the possibility of intrathoracic injury though I have lower suspicion for these since patient is hemodynamically stable. She is wheezing and with a history of COPD will receive DuoNeb. She also has a past cardiac history and will receive a brief cardiac workup with EKG and cardiac enzymes. Based on these concerns, I ordered hematologic and serum labs, cardiac workup, x-rays, CTs including angiography. ECG personally interpreted demonstrates atrial fibrillation, rate 99, normal QTc, significant artifact limits the interpretation of ECG otherwise. See repeat ECG. Patient received DuoNebs, IV fluids for treatment. None of the wounds require laceration repair, bacitracin applied and dressings applied. Tdap booster administered. I discussed my recommendation for contrasted exams with the patient since she does have a history of worsening kidney function. She has had contrasted exams in October and November and tolerated the contrast, but I explained to her the risk of contrast-induced nephropathy potentially worsening her kidney function and causing her to need dialysis. I also discussed the potential for missing a potentially life-threatening injury since I am not able to get good ultrasound images of her abdomen and the contrasted exam would help me visualize this better. Patient chose to have contrast administered to rule out potentially dangerous traumatic injury though she understands it could worsen her kidney function and potentially cause her to need dialysis. Chest and pelvis x-ray personally interpreted do not demonstrate acute traumatic injury, specifically I do not appreciate pneumothorax, hemothorax, or displaced rib fracture on the chest x-ray, no open book pelvic fracture on the pelvis x-ray. See radiology reads for final interpretations. CT head personally interpreted demonstrates no acute intracranial bleed, mass, or midline shift. CT facial bone does not appear to demonstrate displaced nasal fracture on my personal interpretation. CT C-spine does not demonstrate acute traumatic injury on my personal interpretation. Radiology reads and additional studies pending. Labs reviewed by me demonstrate mild leukocytosis WBC 10.9 which is not acutely actionable, hemoglobin 8.8 stable from 8 days ago, normal platelets, pH 7.34, pCO2 normal, VBG lactic 2.3 but patient is already receiving IV fluids. Patient's kidney function is stable from a few days ago. BUN 102, creatinine 3.0 was actually slightly improved. GFR 16 slightly improved from 13 4 days ago. Alkaline phosphatase chronically elevated. No hyperbilirubinemia or other transaminitis. Troponin 0.02. Additional imaging and radiology results pending at time of physician handoff. Patient handed off to Dr. Valentine in stable condition for continued management and disposition. This is Dr. Valentine I took over from Dr. House at [address] scans that were performed. I personally interpreted them and reviewed radiology reads in addition to all the x-rays which were unremarkable aside from a small nasal bone fracture clinically patient has minimal discomfort in this area no significant deformity or deviation she is breathing comfortably. I have advised that she follow-up with ENT if she has functional abnormalities in the future but this should heal on its own. She did have a very small laceration on the upper lip which required direct pressure but is too small to close and had no other abnormalities. Patient remains hemodynamically stable. She does have CKD and was scanned with contrast have advised that she get a repeat creatinine in the next few days. She did have some IV fluids in the emergency department. Ultimately patient was discharged in stable condition without any life-threatening or emergent diagnoses. Procedures <Christopher House MD - Last Filed: 12/29/24 06:51> Miscellaneous Procedure Procedure Performed: EFAST ultrasound Indication: Mechanical fall Performed by Christopher House MD Views: [LUQ/RUQ/pelvis/limited cardiac/limited thoracic] Interpretation: Peritoneal free fluid: Absent in the left upper and right upper quadrants, indeterminate in the pelvis, multiple previous abdominal surgeries and scarring limit my ability to obtain pelvis views Pericardial effusion: Absent Right thoracic free fluid: Absent Left thoracic free fluid: Absent Right lung pneumothorax: Absent Left lung pneumothorax: Absent Impression: Negative EFAST ultrasound within the limitations of the exam, pelvis indeterminant Images were saved in the permanent archive. The study was technically adequate. CPT 91547-47 (limited cardiac) 22209?26 (limited abdominal) 56584?26 (chest) This study was performed by me, and I personally interpreted all images/videos. Based on my clinical judgment, these images were inadequate and did necessitate further imaging. Ultrasound-guided IV Performed by: Christopher House MD Indication: Need for peripheral IV access, multiple failed nursing attempts Consent: Verbal provided by patient after discussion of risks and benefits Procedure details: Area cleaned with alcohol which was allowed to dry prior to procedure. Sterile jelly used and appropriate vessel identified under real-time ultrasound. 20-gauge catheter was placed in the vessel of the right upper extremity just proximal to the elbow under real-time ultrasound guidance and I directly visualized it entering the vessel. IV draws and flushes. Secured with Tegaderm. Post procedure details: Neurovascularly intact, tolerated procedure well, no complications Critical Care <Christopher House MD - Last Filed: 12/29/24 06:51> Critical Care Time Critical Care Time: Yes Attestation: On 12/29/24, the high probability of a clinically significant, sudden or life threatening deterioration of the following system(s) required my full and direct attention, intervention and personal management. The time I documented below is in addition to time spent performing reported procedures but includes the following listed in this critical care notation. Total Time Total Critical Care Time: 35
--- OUTSIDE RECORDS SUMMARY | 2024-12-29 05:54 | XMS_ITS | Encounter Summary ---
Author Organization [employer] ([place], [place], [place], [place], [place]) Address [address] [place] [address] Care Team Providers Care Quality Control Assistant Name Role Phone Unavailable Primary Care Provider Unavailabl e Encounter Details Date Type Department Care Team (Late st Contact Info) Description 03/28/2018 Transcribed Document [facility] [place] [address] [place] [address] ProviderZion MD [address] [place] [address] Social History Tobacco Use Types [...] - Historical ProviderMD - 03/28/2018 6:07 PM 7TH GRADE SOCIAL STUDIES TEACHER Care Management Assessment/Plan Entered On: 03/28/2018 18:12 EST Performed On: 03/28/2018 18:07 EST by Ninoska Cuellar Rn-Material Assembler Ed Care Management Note Anticipated Discharge Date : 04/03/2018 14:00 EST Care Management Note : CM recieved call from Gama at [facility] stating they can take pt at their facility, but not until Saturday, as they now have an agreement with [facility]. CM then spoke with Edie from [facility] and she again confirms they can accept pt at their facility tomorrow. CM updated pt and now pt is agreeable to go to [facility]. She also gave CM permission to speak with Jazmine joshi by phone p [phone]. CM spoke with Jazmine and she is agreeable with plan for [facility], stating its much closer to them, approx 30 min. Pt tells CM that her PCP, Dr. Davis had told her that she was not able to do IV abx from home. Discharge plan will be to go to [facility] in the am. BLAKE updated Dr. Stauffer and he reports he will notify [facility] for tomorrow. CM will cont to follow for ongoing d/c planning/needs. Care Management Note Report : Ninoska Cuellar, Rn-Material Assembler Ed - 03/28/18 16:01:02 [facility] cost for Luis Daniel is $3.70/wk. She states they may be able to contract with SNF to provide abx at pt's cost. She asked CM to have SNF call Paulo at their office to see about arranging. CM called MADELYN Corona with [facility] and [facility]. Updated BS RNAva. CM will cont to follow. Ninoska Cuellar, Rn-Material Assembler Ed - 03/28/18 14:57:29 Called [facility] and spoke with Chiquita and updated her on IV abx needs. SHe will check cost and call CM back to see if bed offer is still on the table. CM left for [facility] with [facility] to update her, left requesting return phone call. CM updated pt and she appears discouraged that [facility] will not accept her as a pt. She tells CM that she is considering just going home. BLAKE also called Clem with [facility] to argueta abx at home. She states that [facility] may also be able to contract with facility to provide them with abx at their cost. CM faxed info on pt and abx to [facility] f [phone]. CM updated BS RNAva. CM will cont to follow. Ninoska Cuellar, Rn-Material Assembler Ed - 03/28/18 14:21:[address] Jones this and he tells CM that pt is ready for discharge from his standpoint and that ID has a plan in place for IV abx. PT does have a PICC in place. Recieved VM from [facility] with [facility] p [phone] stating they are interested in pt. CM went to BS to speak with pt to discuss bed offers. CM presented bed offers and pt tells CM that she really doesn't want to go to another facility. Pt tells CM that she only wants to go to [facility], as she has been there in the past. [facility] had not make bed offer at this time. CM called and spoke with Gama in admissions at [facility] and she tells CM that per her DON, they do not believe they can meet pt's needs at this time. CM pressed for more information and Gama told CM that she would have DON call her. -CM then spoke with MADELYN Corona at [facility] and she states that pt appears too sick at this time to come to their facility. CM provided her with verbal updates, as well as faxed updates f [phone]. She states they will reevaluate now, knowing [...] pt at this time due to the $6280-8010 IV rocephin cost through 05/04/[address] Diaz orders. Cm to follow for ongoing d/c planning/needs. Stew Porras RN - 03/27/18 16:25:12 edie from [facility] ( ex [phone]) called to make bed offer. bed offers will be presented to pt 03/28. dtr [place] [phone] Stew Porras RN - 03/27/18 15:00:29 spoke [...] [facility] to the following counties.... [place], [place]. Stew Porras RN - 03/27/18 10:34:34 RRS-43 + for BROCK CT consulted and per ID, infection must clear prior to any ant surgical intervention Currnelty on rocephin iv w/bld cx pending Documentation Status Complete : Yes Ninoska Cuellar, Rn-Material Assembler Ed - 03/28/2018 18:07 EST Electronically signed by Jorge Alberto, [facility] Conversion Warehouse Team Member Cerner at 05/29/2022 8:35 PM CDT documented in this encounter Plan of Treatment Not on file documented as of this encounter Visit Diagnoses Not on filedocumented in this encounter
--- OUTSIDE RECORDS SUMMARY | 2024-12-29 05:54 | XMS_ITS | Encounter Summary ---
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 Name Role Phone Unavailable Primary Care Provider Unavailabl e Encounter Details Date Type Department Care Team (Late st Contact Info) Description 03/28/2018 Transcribed Document [facility] [place] [address] [place] [address] ProviderZion MD [address] [place], [place] [id number] Social History Tobacco Use Types Packs/Day Years Used Date Smoking Tobacco: Never Assessed Comments Unknown Sex and Gender Information Value Date Recorded Sex Assigned at Not on file Legal Sex Female 4:39 PM CDT Gender Identity Not on file Sexual Orientation Not on file documented as of this encounter Miscellaneous Notes * Cerner Conversion Note - Historical ProviderMD - 03/28/2018 3:56 PM TANYARD WORKER Care Management Assessment/Plan Entered On: 03/28/2018 16:01 EST Performed On: 03/28/2018 15:56 EST by Ninoska Cuellar Rn-High School Admissions Representative Ed Care Management Note Anticipated Discharge Date [...] Care Management Note Report : Ninoska Cuellar Rn-High School Admissions Representative Ed - 03/28/18 14:57:29 Called [facility] and spoke with Chiquita and updated her on IV abx needs. SHe will check cost and call CM back to see if bed offer is still on the table. CM left for [facility] with [facility] to update her, left requesting return phone call. CM updated pt and she appears discouraged that [facility] will not accept her as a pt. She tells CM that she is considering just going home. CM also called Clem with [facility] to argueta abx at home. She states that [facility] may also be able to contract with facility to provide them with abx at their cost. CM faxed info on pt and abx to [facility] f [phone]. CM updated BS RN, Ava. CM will cont to follow. Ninoska Cuellar, Rn-High School Admissions Representative Ed - 03/28/18 14:21:[address] Jones this and he tells CM that pt is ready for discharge from his standpoint and that ID has a plan in place for IV abx. PT does have a PICC in place. Recieved VM from [facility] with [facility] p [phone] stating they are interested in pt. CM went to BS to speak with pt to discuss bed offers. CM presented bed offers and pt tells CM that she really doesn't want to go to another facility. Pt tells CM that she only wants to go to [facility], as she has been there in the past. [facility] had not make bed offer at this [...] -BLAKE then spoke with MADELYN Corona at [facility] and she states that pt appears too sick at this time to come to their facility. BLAKE provided her with verbal updates, as well as faxed updates f [phone]. She states they will reevaluate now, knowing abx needs. She asked for bld cx results and CM called microbiology dept and was told that bld cx x2 from 03/23 were still negative, but would not be complete until this evening. CM informed facility of this information. CM then recieved callback from [place] with admissions who states after rereview, they will not be able to take pt at this time due to the $9681-7886 IV rocephin cost through 05/04/[address] Diaz orders. Cm to follow for ongoing d/c planning/needs. Stew Porras, RN - 03/27/18 16:25:12 blayne from [facility] ([phone] ex [phone]) called to make bed offer. bed offers will be presented to pt 03/28. dtr will provide [place] [phone] Stew Porras, REGULO - 03/27/18 15:00:29 spoke to ID who states pt maybe ready for dc as early as 03/28. id and attending PA are recommending SNF. spoke with pt and her dtr, jazmine and informed them of suggestion from drs to dc to snf for iv abx. pt and dtr in agreement and referrlas made via [facility] to the following counties.... [place]. Stew Porras, REGULO - 03/27/18 10:34:34 RRS-43 + for BROCK CT consulted and per ID, infection must clear prior to any ant surgical intervention Currnelty on rocephin iv w/bld cx pending Documentation Status Complete : Yes Ninoska Cuellar, Rn-High School Admissions Representative Ed - 03/28/2018 15:56 EST Electronically signed by Vinayak Azul Conversion Affiliate Marketing Coordinator Cerner at 05/29/2022 8:36 PM CDT documented in this encounter Plan of Treatment Not on file documented as of this encounter Visit Diagnoses Not on filedocumented in this encounter
--- OUTSIDE RECORDS SUMMARY | 2024-12-29 05:54 | XMS_ITS | Encounter Summary ---
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 Dealer Name Role Phone Unavailable Primary Care Provider Unavailabl e Encounter Details Date Type Department Care Team (Late st Contact Info) Description 03/28/2018 Transcribed Document [facility] [place] [facility] [place] [address] ProviderZion MD [address] [place] [id number] Social History Tobacco Use Types Packs/Day Years Used Date Smoking Tobacco: Never Assessed Comments Unknown Sex and Gender Information Value Date Recorded Sex Assigned at Not on file Legal Sex Female 4:39 PM CDT Gender Identity Not on file Sexual Orientation Not on file documented as of this encounter Miscellaneous Notes * Cerner Conversion Note - Zion ProviderMD - 03/28/2018 7:46 AM RETAIL BUSINESS MANAGER Patient: ETHNA LOREDO Age: 57 years Sex: Female : [...] Rocephin: 2 Gram, 100 mL/Hr, IV Piggyback, [id number] Tylenol: 650 mg, Oral, Q4H, PRN: Other [...] of motion, Normal strength. Integumentary: Warm, Dry, [place]. Neurologic: Alert, Oriented. Psychiatric: Cooperative, Appropriate mood [...] in 4-[address] Marcano at [facility]. 03/27/18 Options discussed with pt-Definitive Rx would require redo-MV sugery/device explant-reimplant. Surgical risk is high given severe carotid dx. Conservative initial Rx w/ repeat BROCK in 4-6 is reasonable option. CTS to see/EP following. Continue current CV meds. Add Plavix if no surgery. Electronically signed by Jorge Alberto, [facility] Conversion Research Manufacturing Operator Cerner at 05/29/2022 8:35 PM CDT documented in this encounter Plan of Treatment Not on file documented as of this encounter Visit Diagnoses Not on filedocumented in this encounter
--- OUTSIDE RECORDS SUMMARY | 2024-12-29 05:55 | XMS_ITS | Encounter Summary ---
Author Organization [employer] ([place], [place], [place], [place], [place]) Address [address] [place] [address] Care Team Providers Care Medical Transcription Editor Name Role Phone Unavailable Primary Care Provider Unavailabl e Encounter Details Date Type Department Care Team (Late st Contact Info) Description 03/28/2018 Transcribed Document [facility] [place] Family Medicine [address] [place] [address] ProviderZion MD [address] [place], [place] [id number] Social History Tobacco Use Types Packs/Day Years Used Date Smoking Tobacco: Never Assessed Comments Unknown Sex and Gender Information Value Date Recorded Sex Assigned at Not on file Legal Sex Female 4:39 PM CDT Gender Identity Not on file Sexual Orientation Not on file documented as of this encounter Miscellaneous Notes * [employer] Conversion Note - Historical ProviderMD - 03/28/2018 2:00 AM BEHAVIOR MANAGEMENT SPECIALIST Roll Edge Machine Operator Details Entered On: 03/28/2018 6:03 EST Performed [...]
--- OUTSIDE RECORDS SUMMARY | 2024-12-29 05:55 | XMS_ITS | Encounter Summary ---
Author Organization [employer] ([place], [place], [place], [place], [place]) Address [address] [place] [address] Care Team Providers Care Neurosurgical Nurse Name Role Phone Unavailable Primary Care Provider Unavailabl e Encounter Details Date Type Department Care Team (Late st Contact Info) Description 03/28/2018 Transcribed Document [facility] [place] Family Medicine [facility] [place] [address] ProviderZion MD [address] [place] [address] Social History Tobacco Use Types [...] - Historical ProviderMD - 03/28/2018 2:27 PM HONING MACHINE OPERATOR TOOL Care Management Assessment/Plan Entered On: 03/28/2018 14:57 EST Performed On: 03/28/2018 14:27 EST by Ninoska Cuellar Rn-Finnish Rubber Ed Care Management Note Anticipated Discharge Date : 04/03/2018 14:00 EST Care Management Note : Called [facility] and spoke with Chiquita and updated her on IV abx needs. SHe will check cost and call CM back to see if bed offer is still on the table. CM left VM for Sheri with [facility] to update her, left requesting return phone call. CM updated pt and she appears discouraged that [facility] will not accept her as a pt. She tells CM that she is considering just going home. BLAKE also called Clem with [facility] to argueta abx at home. She states that [facility] may also be able to contract with facility to provide them with abx at their cost. CM faxed info on pt and abx to [facility] f [phone]. CM updated BS RN, Ava. CM will cont to follow. Care Management Note Report : Ninoska Cuellar, Rn-Finnish Rubber Ed - 03/28/18 14:21:[address] Jones this am and he tells CM that pt is ready for discharge from his standpoint and that ID has a plan in place for IV abx. PT does have a PICC in place. Recieved VM from [facility] with [facility] p [phone] stating they are interested in pt. CM went to BS to speak with pt to discuss bed offers. CM presented bed offers and pt tells CM that she really doesn't want to go to another facility. Pt tells CM that she only wants to go to [facility], as she has been there in the past. [facility] had not make bed offer at this time. CM called and spoke with Gama in admissions at [facility] and she tells CM that per her DON, they do not believe they can meet pt's needs at this time. CM pressed for more information and Gama told CM that she would have DON call her. -CM then spoke with MADELYN Corona at [facility] and she states that pt appears too sick at this time to come to their facility. CM provided her with verbal updates, as well as faxed updates f [phone]. She states they will reevaluate now, knowing [...] pt at this time due to the $0212-1073 IV rocephin cost through 05/04/[address] Diaz orders. Cm to follow for ongoing d/c planning/needs. Stew Porras, RN - 03/27/18 16:25:12 blayne from [facility] ([phone]) called to make bed offer. bed offers will be presented to pt 03/28. [facility] [phone] Stew Porras, RN - 03/27/18 15:00:29 spoke to ID who states pt maybe ready for dc as early as 03/28. id and attending PA are recommending SNF. spoke with pt and her dtr, jazmine and informed them of suggestion from drs to dc to snf for iv abx. pt and dtr in agreement and referrlas made via [facility] to the following counties.... [place]. Stew Porras, RN - 03/27/18 10:34:34 [id number] + for BROCK CT consulted and per ID, infection must clear prior to any ant surgical intervention Currnelty on rocephin iv w/bld cx pending Documentation Status Complete : Yes Ninoska Cuellar, Rn-Finnish Rubber Ed - 03/28/2018 14:27 EST Electronically signed by Vinayak Azul Conversion Apartment Maintenance Supervisor Cerner at 05/29/2022 8:31 PM CDT documented in this encounter Plan of Treatment Not on file documented as of this encounter Visit Diagnoses Not on filedocumented in this encounter
--- OUTSIDE RECORDS SUMMARY | 2024-12-29 05:55 | XMS_ITS | Clinical Summary ---
Author Organization [facility] Address [address] [place] [address] Care Team Providers Care Outside Cutter Name Role Phone Cosme Davis MD Primary [...] Insurance MEDICARE A & B Care Teams Outside Cutter Relationship Specialty Start Date End Date Cosme Davis MD [address] [facility] [address] ATTN: [place] [address] PCP - General Emergency Medicine 06/04/18
--- OUTSIDE RECORDS SUMMARY | 2024-12-29 05:56 | XMS_ITS | Encounter Summary ---
Author Organization [employer] ([place], [place], [place], [place], [place]) Address [address] [place] [address] Care Team Providers Care Indigo Mixer Name Role Phone Unavailable Primary Care Provider Unavailabl e Encounter Details Date Type Department Care Team (Late st Contact Info) Description 03/27/2018 Transcribed Document [facility] [place] [address] [place] [address] ProviderZion MD [address] [place] [address] Social History Tobacco Use Types [...] - Historical ProviderMD - 03/27/2018 2:00 AM PHOSPHATIC FERTILIZER SUPERVISOR Linux Security Administrator Details Entered On: 03/27/2018 5:00 EST Performed [...]
--- OUTSIDE RECORDS SUMMARY | 2024-12-29 05:56 | XMS_ITS | Encounter Summary ---
Author Organization [employer] ([place], [place], [place], [place], [place]) Address [address] [place] [address] Care Team Providers Care Software Validation Engineer Name Role Phone Unavailable Primary Care Provider Unavailabl e Encounter Details Date Type Department Care Team (Late st Contact Info) Description 03/27/2018 Transcribed Document [facility] [place] Family Medicine [facility] [place] [address] ProviderZion MD [address] [place] [phone] Social History Tobacco Use Types Packs/Day Years Used Date Smoking Tobacco: Never Assessed Comments Unknown Sex and Gender Information Value Date Recorded Sex Assigned at Not on file Legal Sex Female 4:39 PM CDT Gender Identity Not on file Sexual Orientation Not on file documented as of this encounter Miscellaneous Notes * Cerner Conversion Note - [place] ProviderMD - 03/27/2018 10:05 AM TRUCK GUARD Patient: ETHAN LOREDO Age: 57 Years Sex: [...] regurgitation. Electronically signed by Vinayak Azul Conversion Integrated Circuit Layout Designer Cerner at 05/29/2022 8:49 PM CDT documented in this encounter Plan of Treatment Not on file documented as of this encounter Visit Diagnoses Not on filedocumented in this encounter
--- OUTSIDE RECORDS SUMMARY | 2024-12-29 05:56 | XMS_ITS | Encounter Summary ---
Author Organization [employer] ([place], [place], [place], [place], [place]) Address [address] [place] [address] Care Team Providers Care Service Writer Advisor Name Role Phone Unavailable Primary Care Provider Unavailabl e Encounter Details Date Type Department Care Team (Late st Contact Info) Description 03/27/2018 Transcribed Document [facility] [place] [address] [place] [address] ProviderZion MD [address] [place] [address] Social History Tobacco Use Types [...] - Historical ProviderMD - 03/27/2018 10:33 AM HEAD MACHINIST Care Management Assessment/Plan Entered On: 03/27/2018 10:34 [...] Patient History Note Report : DEEPA GALDAMEZ, Public Safety Teacher - 03/26/18 17:47:16 Talked w/ this 57 yr old W F transferred here from [facility] w/ bradycardia, positive blood cultures/strep B sepsis bactremia. PMH includes: bladder cancer, CAD s/p CABG, MVR, PPM plcmt (for which pt has had no F/U), pancreatitis, , COPD, DM, HTN, HLD, depression and anxiety. Pt underwent BROCK today due to concern for possible infected pacemaker (report not in yet). She is currently on 2gm IV rocephin, which [facility] says she will need until 04/20/18. Pt lives w/ her estranged spouse at [facility] address, claims she is indep w/ [...]
--- OUTSIDE RECORDS SUMMARY | 2024-12-29 05:57 | XMS_ITS | Encounter Summary ---
Author Organization [employer] ([place], [place], [place], [place], [place]) Address [address] [place] [address] Care Team Providers Care Principal Bioinformatics Specialist Name Role Phone Unavailable Primary Care Provider Unavailabl e Encounter Details Date Type Department Care Team (Late st Contact Info) Description 03/27/2018 Transcribed Document [facility] [place] Family Medicine [address] [place] [address] ProviderZion MD [address] [place] [address] Social History Tobacco Use Types [...] - Historical ProviderMD - 03/27/2018 5:00 AM FARMWORKER CRANBERRY Chart Check - Review Order Profile Entered [...]
--- OUTSIDE RECORDS SUMMARY | 2024-12-29 05:57 | XMS_ITS | Encounter Summary ---
Author Organization [employer] ([place], [place], [place], [place], [place]) Address [address] [place] [address] Care Team Providers Care Physical Security Manager Name Role Phone Unavailable Primary Care Provider Unavailabl e Encounter Details Date Type Department Care Team (Late st Contact Info) Description 03/27/2018 Transcribed Document [facility] [place] [facility] [place] [address] ProviderZion MD [address] [place] [address] Social History Tobacco Use Types [...] - Historical ProviderMD - 03/27/2018 4:23 PM SOURCING ASSOCIATE Care Management Assessment/Plan Entered On: 03/27/2018 16:25 EST Performed On: 03/27/2018 16:23 EST by Stew Porras RN Care Management Note Anticipated Discharge Date : 04/03/2018 14:00 EST Care Management Note : blayne from [facility] [place] ( [address]) called to make bed offer. bed offers will be presented to pt 03/28. dtr will provide [address]half [address] [phone] Care Management Note Report : Stew Porras [...] - 03/27/2018 16:23 EST Electronically signed by [facility], [facility] Conversion Referral Clerk Cerner at 05/29/2022 8:47 PM CDT documented in this encounter Plan of Treatment Not on file documented as of this encounter Visit Diagnoses Not on filedocumented in this encounter
--- OUTSIDE RECORDS SUMMARY | 2024-12-29 05:58 | XMS_ITS | Encounter Summary ---
Author Organization [employer] ([place], [place], [place], [place], [place]) Address [address] [place] [address] Care Team Providers Care Air Quality Specialist Name Role Phone Unavailable Primary Care Provider Unavailabl e Encounter Details Date Type Department Care Team (Late st Contact Info) Description 03/27/2018 Transcribed Document [facility] [place] [address] ProviderZion MD [address] [place] [phone] Social History Tobacco Use Types Packs/Day Years Used Date Smoking Tobacco: Never Assessed Comments Unknown Sex and Gender Information Value Date Recorded Sex Assigned at Not on file Legal Sex Female 4:39 PM CDT Gender Identity Not on file Sexual Orientation Not on file documented as of this encounter Miscellaneous Notes * [employer] Conversion Note - Historical ProviderMD - 03/27/2018 9:05 AM TREE TRIMMING LINE TECHNICIAN Patient: ETHAN LOREDO Age: 57 Years Sex: [...]
--- OUTSIDE RECORDS SUMMARY | 2024-12-29 05:58 | XMS_ITS | Encounter Summary ---
Author Organization [employer] ([place], [place], [place], [place], [place]) Address [address] [place] [address] Care Team Providers Care Plaster Model And Mold Maker Name Role Phone Unavailable Primary Care Provider Unavailabl e Encounter Details Date Type Department Care Team (Late st Contact Info) Description 03/27/2018 Transcribed Document [facility] [place] [address] [place] [address] ProviderZion MD [address] [place] [phone] Social History Tobacco Use Types Packs/Day Years Used Date Smoking Tobacco: Never Assessed Comments Unknown Sex and Gender Information Value Date Recorded Sex Assigned at Not on file Legal Sex Female 4:39 PM CDT Gender Identity Not on file Sexual Orientation Not on file documented as of this encounter Miscellaneous Notes * Cerner Conversion Note - Zion ProviderMD - 03/27/2018 9:26 AM TERRAZZO WORKER APPRENTICE Patient: ETHAN CRONIN Age: 57 years Sex: Female : 1960 Associated Diagnoses: None Author: AJAY MARCANO MD-CAR Basic Information PCP: Unknown Text Transcriber: Chief Complaint Vegetation on prosthetic mitral valve [...] Oral, Daily cefTRIAXone 2 Gram, IV Piggyback, [id number] citalopram 20 mg tab 20 mg 1 [...] Bedtime Problem list: All Problems Anxiety / 64467999 / Confirmed Atrial flutter / 6073345 / Confirmed COPD (chronic obstructive pulmonary disease) / 15924999 / Confirmed Depression / 17061062 / Confirmed Diabetes / 263102013 / Confirmed Hyperlipidemia / 36238377 / Confirmed Hypertension / 9776252094 / Confirmed Bladder cancer / 5461304477 / Confirmed Pancreatitis / 430661313 / Confirmed Tobacco abuse / 094381642 / Confirmed Histories No education data available. Social & Psychosocial Habits Tobacco 02/17/2015 Tobacco Use Within Last Twelve Months Cigarettes Smoking Status Current every day smoker Years of Tobacco Use 40 Packs/Tins Daily 1 Smoking Cessation Information Provided Yes Past Medical History: Active CAD - Coronary artery disease (2534375525) Cardiomyopathy (019604636) HLD - Hyperlipidemia (375873646) HTN - Hypertension (0061130683) Resolved COPD - Chronic obstructive pulmonary disease (935545150): Resolved. Family History: No family history items have been selected or recorded. Procedure history: CABG in 2016 at 55 Years. MAZE in 2016 at 55 Years. Cholecystectomy; (06988). Comments: 02/17/2015 11:52 - SUSI BOWMAN RN [...] of motion, Normal strength. Integumentary: Warm, Dry, [place]. Neurologic: Alert, Oriented. Psychiatric: Cooperative, Appropriate mood & affect. Review / Management MAR 27 07:36 136 104 H 33 / H 137 4.0 L 20 0.90 \ Cardiac Markers (Current Encounter/Past 24 Hours) No Cardiac Marker Results Found (Past 24 Hours) Blood Gases (Current Encounter/Past 24 Hours) No Blood Gas Results Found (Past 24 Hours) Radiology Results (Last 48 hours) [id number] -- 03/23/2018 17:08 CT Abdomen Pelvis WO [...]
--- OUTSIDE RECORDS SUMMARY | 2024-12-29 05:58 | XMS_ITS | Encounter Summary ---
Author Organization [employer] ([place], [place], [place], [place], [place]) Address [address] [place] [address] Care Team Providers Care Country Director Name Role Phone Unavailable Primary Care Provider Unavailabl e Encounter Details Date Type Department Care Team (Late st Contact Info) Description 03/27/2018 Transcribed Document [facility] [place] Family Medicine [address] [place] [address] ProviderZion MD [address] [place], [place] [phone] Social History Tobacco Use Types Packs/Day Years Used Date Smoking Tobacco: Never Assessed Comments Unknown Sex and Gender Information Value Date Recorded Sex Assigned at Not on file Legal Sex Female 4:39 PM CDT Gender Identity Not on file Sexual Orientation Not on file documented as of this encounter Miscellaneous Notes * Cerner Conversion Note - Historical ProviderMD - 03/27/2018 8:58 AM DISTRICT MEDICAL EXAMINER Consult Phone Call Documentation Entered On: 03/27/2018 [...]
--- OUTSIDE RECORDS SUMMARY | 2024-12-29 05:59 | XMS_ITS | Encounter Summary ---
Author Organization [employer] ([place], [place], [place], [place], [place]) Address [address] [place] [address] Care Team Providers Care Hydraulic Press In Operator Name Role Phone Unavailable Primary Care Provider Unavailabl e Encounter Details Date Type Department Care Team (Late st Contact Info) Description 03/27/2018 Transcribed Document [facility] [place] Medicine [facility] [place] [address] ProviderZion MD [address] [place] [address] Social History Tobacco Use Types [...] - Historical ProviderMD - 03/27/2018 2:54 PM VMWARE ADMINISTRATOR Care Management Assessment/Plan Entered On: 03/27/2018 15:00 [...] dtr in agreement and referrlas made via [facility] to the following counties.... [place] [...]
--- OUTSIDE RECORDS SUMMARY | 2024-12-29 05:59 | XMS_ITS | Encounter Summary ---
Author Organization [employer] ([place], [place], [place], [place], [place]) Address [address] [place] [address] Care Team Providers Care Magazine Supervisor Name Role Phone Unavailable Primary Care Provider Unavailabl e Encounter Details Date Type Department Care Team (Late st Contact Info) Description 03/26/2018 Transcribed Document [facility] [place] Family Medicine [address] [place] [address] ProviderZion MD [address] [place] [address] Social History Tobacco Use Types [...] - Historical ProviderMD - 03/26/2018 2:00 AM REGIONAL WILDLIFE AGENT Gold Buyer Details Entered On: 03/26/2018 1:20 EST Performed [...]
--- OUTSIDE RECORDS SUMMARY | 2024-12-29 06:00 | XMS_ITS | Encounter Summary ---
Author Organization [employer] ([place], [place], [place], [place], [place]) Address [address] [place] [address] Care Team Providers Care Barbering Instructor Name Role Phone Unavailable Primary Care Provider Unavailabl e Encounter Details Date Type Department Care Team (Late st Contact Info) Description 03/26/2018 Transcribed Document [facility] [place] Family Medicine [address] [place] [address] ProviderZion MD [address] [place] [address] Social History Tobacco Use Types Packs/Day Years Used Date Smoking Tobacco: Never Assessed Comments Unknown Sex and Gender Information Value Date Recorded Sex Assigned at Not on file Legal Sex Female 4:39 PM CDT Gender Identity Not on file Sexual Orientation Not on file documented as of this encounter Miscellaneous Notes * Cerner Conversion Note - Historical ProviderMD - 03/26/2018 10:40 AM MANAGER APPLE Patient: ETHAN LOREDO Age: 57 Years Sex: [...]
--- OUTSIDE RECORDS SUMMARY | 2024-12-29 06:00 | XMS_ITS | Encounter Summary ---
Author Organization [employer] ([place], [place], [place], [place], [place]) Address [address] [place] [address] Care Team Providers Care Court Specialist Name Role Phone Unavailable Primary Care Provider Unavailabl e Encounter Details Date Type Department Care Team (Late st Contact Info) Description 03/26/2018 Transcribed Document [facility] [place] [address] [place] [address] ProviderZion MD [address] [place], [place] [phone] Social History Tobacco Use Types Packs/Day Years Used Date Smoking Tobacco: Never Assessed Comments Unknown Sex and Gender Information Value Date Recorded Sex Assigned at Not on file Legal Sex Female 4:39 PM CDT Gender Identity Not on file Sexual Orientation Not on file documented as of this encounter Miscellaneous Notes * [employer]ner Conversion Note - Historical ProviderMD - 03/26/2018 5:00 AM SALES TRADER Chart Check - Review Order Profile Entered [...]
--- OUTSIDE RECORDS SUMMARY | 2024-12-29 06:01 | XMS_ITS | Encounter Summary ---
Author Organization [employer] ([place], [place], [place], [place], [place]) Address [address] [place] [address] Care Team Providers Care Scallop Dredger Name Role Phone Unavailable Primary Care Provider Unavailabl e Encounter Details Date Type Department Care Team (Late st Contact Info) Description 03/26/2018 Transcribed Document [facility] [place] [facility] [place] [address] ProviderZion MD [address] [place] [phone] Social History Tobacco Use Types Packs/Day Years Used Date Smoking Tobacco: Never Assessed Comments Unknown Sex and Gender Information Value Date Recorded Sex Assigned at Not on file Legal Sex Female 4:39 PM CDT Gender Identity Not on file Sexual Orientation Not on file documented as of this encounter Miscellaneous Notes * Cerner Conversion Note - Zion Alonso MD - 03/26/2018 10:05 AM AERONAUTICS TEACHER Patient: ETHAN CRONIN Age: 57 years Sex: Female : 1960 Associated Diagnoses: None Author: CARROLL HIGH MD-INF Basic Information CC: Sepsis bacteremia 03/19/18 4/4 bottles for Group b strep ([facility]) History of Present Illness 57-year-old white female with history of bladder cancer, atrial flutter, pacemaker placement 2016, hypertension, DM2, COPD, pancreatitis, who recently had blood cultures obtained at [facility] on 03/19/18 for fever which were positive in 4 out of 4 bottles for group B Streptococcus. Patient was to start IV antibiotics but was found to have bradycardia and was admitted to [facility] 03[facility]. I was consulted on 03/25/17. The patient had been started on vancomycin and Rocephin. Urine culture obtained at [facility] was positive for multiple bacteria consistent [...] cefTRIAXone (Rocephin) - 2 Gram, IV Piggyback, [id number], infuse over 30 Minute(s), Routine Anticoagulant heparin [...] Normal strength, No tenderness. Integumentary: Warm, Dry, [place], No pallor, No rash, Left chest wall [...] 10) Troponin <0.015 (FEB 10) , ACC: [id number] ORDER: Culture Blood DATE: 03/23/2018 17:49 SOURCE: Blood SITE: Reports Pre 03/25/2018 23:01 No growth at 2 days. Pre 03/24/2018 23:02 No growth at 1 day. Pre 03/24/2018 16:03 Culture less than 24 Hrs old == ACC: [id number] ORDER: Culture Blood DATE: 03/23/2018 17:49 SOURCE: Blood SITE: Reports Pre 03/25/2018 23:01 No growth at 2 days. Pre 03/24/2018 23:02 No growth at 1 day. Pre 03/24/2018 16:03 Culture less than 24 Hrs old == . Procedure Critical Care - Code Management Assessment: Radiology Results (Last 48 hours) [id number] -- 03/23/2018 17:08 CT Abdomen Pelvis WO [...] of 4 blood culture bottles positive at [facility] (spoke to Maurice Spencer, at [facility] The high-grade bacteremia suggests intravascular source including [...]
--- OUTSIDE RECORDS SUMMARY | 2024-12-29 06:01 | XMS_ITS | Encounter Summary ---
Author Organization [employer] ([place], [place], [place], [place], [place]) Address [address] [place] [address] Care Team Providers Care Diamond Cleaver Name Role Phone Unavailable Primary Care Provider Unavailabl e Encounter Details Date Type Department Care Team (Late st Contact Info) Description 03/25/2018 Transcribed Document [facility] [place] Medicine [facility] [place] [address] ProviderZion MD [address] [place] [address] Social History Tobacco Use Types Packs/Day Years Used Date Smoking Tobacco: Never Assessed Comments Unknown Sex and Gender Information Value Date Recorded Sex Assigned at Not on file Legal Sex Female 4:39 PM CDT Gender Identity Not on file Sexual Orientation Not on file documented as of this encounter Miscellaneous Notes * Cerner Conversion Note - Zion ProviderMD - 03/25/2018 8:01 AM GUN PROFILER Patient: ETHAN CRONIN Age: 57 years Sex: Female : 1960 Associated Diagnoses: None Author: NAVID STARKEY, [facility] 57 year old female with bradycardia during outpt infusion for bacteremia PMH: CAD, CABG/pacemaker 3 years ago, DM, HTN, and [place] Consult: vancomycin Indication: bacteremia Goal of Trough: [...]
--- OUTSIDE RECORDS SUMMARY | 2024-12-29 06:01 | XMS_ITS | Encounter Summary ---
Author Organization [employer] ([place], [place], [place], [place], [place]) Address [address] [place] [address] Care Team Providers Care Cleaner Furniture Name Role Phone Unavailable Primary Care Provider Unavailabl e Encounter Details Date Type Department Care Team (Late st Contact Info) Description 03/27/2018 Transcribed Document [facility] [place] Family Medicine [facility] [place] [address] ProviderZion MD [address] [place] [phone] Social History Tobacco Use Types Packs/Day Years Used Date Smoking Tobacco: Never Assessed Comments Unknown Sex and Gender Information Value Date Recorded Sex Assigned at Not on file Legal Sex Female 4:39 PM CDT Gender Identity Not on file Sexual Orientation Not on file documented as of this encounter Miscellaneous Notes * Cerner Conversion Note - Zion Alonso MD - 03/27/2018 9:17 AM DYE COLORIST FORMULATOR Patient: ETHAN CRONIN Age: 57 years Sex: Female : 1960 Associated Diagnoses: None Author: CARROLL HIGH MD-INF Basic Information CC: Sepsis bacteremia 03/19/18 4/4 bottles for Group b strep ([facility]), mitral prosthetic valve endocarditis History of Present Illness 57-year-old white female with history of bladder cancer, atrial flutter, pacemaker placement 2016, hypertension, DM2, COPD, pancreatitis, who recently had blood cultures obtained at [facility] on 03/19/18 for fever which were positive in 4 out of 4 bottles for group B Streptococcus. Patient was to start IV antibiotics but was found to have bradycardia and was admitted to [facility] on 03/23/17. I was consulted on 03/25/17. The patient had been started on vancomycin and Rocephin. Urine culture obtained at [facility] was positive for multiple bacteria [...] cefTRIAXone (Rocephin) - 2 Gram, IV Piggyback, [id number], infuse over 30 Minute(s), Routine Anticoagulant heparin [...] Normal strength, No tenderness. Integumentary: Warm, Dry, [place], No pallor, No rash, Left chest wall [...] 10) Troponin <0.015 (FEB 10) , ACC: [id number] ORDER: Culture Blood DATE: 03/23/2018 17:49 SOURCE: Blood SITE: Reports Pre 03/26/2018 23:01 No growth at 3 days. Pre 03/25/2018 23:01 No growth at 2 days. Pre 03/24/2018 23:02 No growth at 1 day. Pre 03/24/2018 16:03 Culture less than 24 Hrs old == ACC: [id number] ORDER: Culture Blood DATE: 03/23/2018 17:49 SOURCE: [...] 4 blood culture bottles positive at [facility] (spoke to Maurice Spencer, at [facility]). BROCK consistent with mitral valve endocarditis, [...] and discussed with Dr. Perez's service, cardiology. academic affairs manager: Please arrange for outpatient IV antibiotics with Rocephin 2 g IV every 12 hours until 05/04/18. Follow CBC, CMP, CRP weekly while on IV antibiotics. Fax orders to [phone], and call [phone] with final arrangements. Arrange for follow-up with me in 2 weeks post discharge. documented in this encounter Plan of Treatment Not on file documented as of this encounter Visit Diagnoses Not on filedocumented in this encounter
--- OUTSIDE RECORDS SUMMARY | 2024-12-29 06:01 | XMS_ITS | Encounter Summary ---
Author Organization [employer] ([place], [place], [place], [place], [place]) Address [address] [place] [address] Care Team Providers Care Acoustical Engineer Name Role Phone Unavailable Primary Care Provider Unavailabl e Encounter Details Date Type Department Care Team (Late st Contact Info) Description 03/27/2018 Transcribed Document [facility] [place] Family Medicine [address] [place] [address] ProviderZion MD [address] [place], [place] [phone] Social History Tobacco Use Types Packs/Day Years Used Date Smoking Tobacco: Never Assessed Comments Unknown Sex and Gender Information Value Date Recorded Sex Assigned at Not on file Legal Sex Female 4:39 PM CDT Gender Identity Not on file Sexual Orientation Not on file documented as of this encounter Miscellaneous Notes * [employer]ner Conversion Note - Historical ProviderMD - 03/27/2018 8:16 AM OPERATION SUPERVISOR Consult Phone Call Documentation Entered On: 03/27/2018 [...]
--- OUTSIDE RECORDS SUMMARY | 2024-12-29 06:02 | XMS_ITS | Encounter Summary ---
Author Organization [employer] ([place], [place], [place], [place], [place]) Address [address] [place] [address] Care Team Providers Care Device Sales Consultant Name Role Phone Unavailable Primary Care Provider Unavailabl e Encounter Details Date Type Department Care Team (Late st Contact Info) Description 03/25/2018 Transcribed Document [facility] [place] Family Medicine [address] [place] [address] ProviderZion MD [address] [place], [place] [phone] Social History Tobacco Use Types Packs/Day Years Used Date Smoking Tobacco: Never Assessed Comments Unknown Sex and Gender Information Value Date Recorded Sex Assigned at Not on file Legal Sex Female 4:39 PM CDT Gender Identity Not on file Sexual Orientation Not on file documented as of this encounter Miscellaneous Notes * [employer]ner Conversion Note - Zion Alonso MD - 03/25/2018 7:28 AM HEALTH AND SAFETY CONSULTANT DATE OF CONSULTATION: 03/24/2018 ELECTROPHYSIOLOGY CONSULTATION REFERRING HOSPITALIST: Omar Nelson M.D. CONSULTING INSURANCE PLAN SPECIALIST: Jorge Hawkins MD REASON FOR CONSULTATION: [...] been seen by Dr. Beard in the [facility]. The patient does have a history of [...] count of 379. [place] 1[place] [address]. Liver enzymes normal. EKG shows biventricular paced [...] CC1: Jorge Hawkins M.D. CC2: Dr. Beard; [place], [place] Electronically signed by Jorge Alberto [facility] Conversion Pork Cutlet Maker [employer]ner at 05/29/2022 8:43 PM CDT documented in this encounter Plan of Treatment Not on file documented as of this encounter Visit Diagnoses Not on filedocumented in this encounter
--- OUTSIDE RECORDS SUMMARY | 2024-12-29 06:02 | XMS_ITS | Referral Summary ---
Author Organization [employer] ([place], [place], [place], [place], [place]) Address [address] [place] [address] Care Team Providers Care Assembler Cards And Announcements Name Role Phone Unavailable Primary Care Provider [...]
--- OUTSIDE RECORDS SUMMARY | 2024-12-29 06:02 | XMS_ITS | Encounter Summary ---
Author Organization [employer] ([place], [place], [place], [place], [place]) Address [address] [place] [address] Care Team Providers Care Alum Mixer Name Role Phone Unavailable Primary Care Provider Unavailabl e Encounter Details Date Type Department Care Team (Late st Contact Info) Description 03/25/2018 Transcribed Document [facility] [place] Family Medicine [facility] [place] [address] ProviderZion MD [address] [place] [phone] Social History Tobacco Use Types Packs/Day Years Used Date Smoking Tobacco: Never Assessed Comments Unknown Sex and Gender Information Value Date Recorded Sex Assigned at Not on file Legal Sex Female 4:39 PM CDT Gender Identity Not on file Sexual Orientation Not on file documented as of this encounter Miscellaneous Notes * [employer]ner Conversion Note - Zion Alonso MD - 03/25/2018 9:14 AM PLATE FILLER Patient: ETHAN CRONIN Age: 57 years Sex: [...] cefTRIAXone (Rocephin) - 2 Gram, IV Piggyback, [id number], infuse over 30 Minute(s), Routine vancomycin + Sodium Chloride 0.9% intravenous solution 250 m - 750 mg, IV Piggyback, [id number], infuse over 1 Hour(s) Anticoagulant heparin - [...] 11:52 - SUSI BOWMAN RN 2006 Cholecystectomy; (90335). Comments: 02/17/2015 11:52 - SUSI BOWMAN RN 2007 umbilical hernia repair. Social History Social & Psychosocial Habits Tobacco 02/17/2015 Tobacco Use Within Last Twelve Months Cigarettes Smoking Status Current every day smoker Years of Tobacco Use 40 Packs/Tins Daily 1 Smoking Cessation Information Provided Yes . , 3 children, lives in [facility] about [place].. Physical Examination VS/Measurements Vitals Signs (last 24 [...] Normal strength, No tenderness. Integumentary: Warm, Dry, [place], No pallor, No rash, Left chest wall [...] No Radiology Results Found Diagnostic Findings: ACC: [id number] ORDER: Culture Blood DATE: 03/23/2018 17:49 SOURCE: Blood SITE: Reports Pre 03/24/2018 23:02 No growth at 1 day. Pre 03/24/2018 16:03 Culture less than 24 Hrs old == [facility]: [id number] ORDER: Culture Blood DATE: 03/23/2018 17:49 SOURCE: Blood SITE: Reports Pre 03/24/2018 23:02 No growth at 1 day. Pre 03/24/2018 16:03 Culture less than 24 Hrs old == . Impression and Plan 1. Group B streptococcus sepsis 03/19/18 in 4 out of 4 blood culture bottles positive at [facility] (spoke to Maurice Spencer, at [facility]). The high-grade bacteremia suggests intravascular source [...]
--- OUTSIDE RECORDS SUMMARY | 2024-12-29 06:03 | XMS_ITS | Clinical Summary ---
Author Organization [employer] ([place], [place], [place], [place], [place]) Address [address] [place] [address] Care Team Providers Care Management Engineer Name Role Phone Unavailable Primary Care [...]
--- OUTSIDE RECORDS SUMMARY | 2024-12-29 06:03 | XMS_ITS | Encounter Summary ---
Author Organization [employer] ([place], [place], [place], [place], [place]) Address [address] [place] [address] Care Team Providers Care Headmaster/Mistress Name Role Phone Unavailable Primary Care Provider Unavailabl e Encounter Details Date Type Department Care Team (Late st Contact Info) Description 03/25/2018 Transcribed Document [facility] [place] [facility] [place] [address] ProviderZion MD [address] [place] [phone] Social History Tobacco Use Types Packs/Day Years Used Date Smoking Tobacco: Never Assessed Comments Unknown Sex and Gender Information Value Date Recorded Sex Assigned at Not on file Legal Sex Female 4:39 PM CDT Gender Identity Not on file Sexual Orientation Not on file documented as of this encounter Miscellaneous Notes * [employer] Conversion Note - Historical ProviderMD - 03/25/2018 1:44 PM TRIAL JUDGE Patient: ETHAN LOREDO Age: 57 Years Sex: [...] underlying sinus rhythm. 2. Biventricular internal cardioverter-defibrillator [employer], this device was reprogrammed, the values as [...] EKG Paced Electronically signed by Jorge Alberto, [employer] Conversion Senior Hardware Design Engineer [employer] at 05/29/2022 8:29 PM CDT documented in this encounter Plan of Treatment Not on file documented as of this encounter Visit Diagnoses Not on filedocumented in this encounter
--- OUTSIDE RECORDS SUMMARY | 2024-12-29 06:03 | XMS_ITS | Encounter Summary ---
Author Organization [employer] ([place], [place], [place], [place], [place]) Address [address] [place] [address] Care Team Providers Care Rail Car Painter/Sandblaster Name Role Phone Unavailable Primary Care Provider Unavailabl e Encounter Details Date Type Department Care Team (Late st Contact Info) Description 03/25/2018 Transcribed Document [facility] [place] [place] Family Medicine [address] [place] [address] ProviderZion MD [address] [place] [address] Social History Tobacco Use [...] Historical ProviderMD - 03/25/2018 5:00 AM SUPERVISOR PIGMENT MAKING Chart Check - Review Order Profile Entered On: 03/25/2018 4:05 EST Performed On: 03/25/2018 5:00 EST by Carolina Valenzuela RN Chart Check Chart Reviewed Date and Time : 03/25/2018 4:05 EST Carloina Valenzuela RN - 03/25/2018 4:05 EST Electronically signed by Jorge Alberto [facility] Conversion Neurosurgery Research Director [employer] at 05/29/2022 8:34 PM CDT documented in this encounter Plan of Treatment Not on file documented as of this encounter Visit Diagnoses Not on filedocumented in this encounter
--- OUTSIDE RECORDS SUMMARY | 2024-12-29 06:04 | XMS_ITS | Encounter Summary ---
Author Organization [employer] ([place], [place], [place], [place], [place]) Address [address] [place] [address] Care Team Providers Care Furnace Combination Analyst Name Role Phone Unavailable Primary Care Provider Unavailabl e Encounter Details Date Type Department Care Team (Late st Contact Info) Description 03/25/2018 Transcribed Document [facility] [place] [address] [place] [address] ProviderZion MD [address] [place], [place] [id number] Social History Tobacco Use Types Packs/Day Years Used Date Smoking Tobacco: Never Assessed Comments Unknown Sex and Gender Information Value Date Recorded Sex Assigned at Not on file Legal Sex Female 4:39 PM CDT Gender Identity Not on file Sexual Orientation Not on file documented as of this encounter Miscellaneous Notes * Cerner Conversion Note - Historical ProviderMD - 03/25/2018 2:00 AM NUTRITION AIDE Service Bar Cashier Details Entered On: 03/25/2018 4:05 EST Performed [...]
--- OUTSIDE RECORDS SUMMARY | 2024-12-29 06:04 | XMS_ITS | Encounter Summary ---
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
--- OUTSIDE RECORDS SUMMARY | 2024-12-29 06:04 | XMS_ITS | Encounter Summary ---
Author Organization [employer] ([place], [place], [place], [place], [place]) Address [address] [place] [address] Care Team Providers Care Pest Controller Name Role Phone Unavailable Primary Care Provider Unavailabl e Encounter Details Date Type Department Care Team (Late st Contact Info) Description 03/24/2018 Transcribed Document [facility] [place] [address] [place] [address] ProviderZion MD [address] [place] [address] Social History Tobacco Use Types Packs/Day Years Used Date Smoking Tobacco: Never Assessed Comments Unknown Sex and Gender Information Value Date Recorded Sex Assigned at Not on file Legal Sex Female 4:39 PM CDT Gender Identity Not on file Sexual Orientation Not on file documented as of this encounter Miscellaneous Notes * Cerner Conversion Note - Historical ProviderMD - 03/24/2018 1:34 PM SNUFF DRIER Consult Phone Call Documentation Entered On: 03/24/2018 14:54 EST Performed On: 03/24/2018 14:55 EST by MANE CARROLL Phone Call for Consults Consult Phone Call/Page Attempt : First call Consult Reason : Called in Consult on 03/24/18 at 1455 for: +positive blood cultures at OSH perDr. Christian COLETHA - 03/24/2018 14:53 EST Electronically signed by [facility] Conversion Computer Technician Cerner at 05/29/2022 8:51 PM CDT documented in this encounter Plan of Treatment Not on file documented as of this encounter Visit Diagnoses Not on filedocumented in this encounter
--- OUTSIDE RECORDS SUMMARY | 2024-12-29 06:05 | XMS_ITS | Encounter Summary ---
Author Organization [employer] ([place], [place], [place], [place], [place]) Address [address] [place] [address] Care Team Providers Care Makeup Artistry Instructor Name Role Phone Unavailable Primary Care Provider Unavailabl e Encounter Details Date Type Department Care Team (Late st Contact Info) Description 05/07/2018 Transcribed Document [facility] [place] [facility] [place] [address] ProviderZion MD [address] [place] [address] Social History Tobacco Use Types Packs/Day [...] Zion ProviderMD - 05/07/2018 1:16 PM CDT [address] [place] [address] Patient Copy Patient Information: Name: ETHAN CRONIN Current Date: 05/07/2018 13:16:44 : 1960 Patient Address: [address] [place] [id number] Patient Attending Physician: AJAY MARCANO MD-CAR Primary Care Provider: SUJIT DAWKINS (REF)IFTIKHAR Primary Care Provider Discharge Diagnosis: Weight on Admission: 163 lb, 0 oz Comment: Follow-up Instructions: With: Address: When: AJAY MARCANO [address] [facility], [address] [place] [phone] Business ([employer] Within 2 to 3 days Comments: Follow-up [...] 11/25/2009 Document Revised: 07/05/2016 Document Reviewed: 07/30/2013 [employer] Interactive Patient Education ? 2017 [employer]. CIGARETTE SMOKING: The facts are clear, cigarette smoking will shorten your life. Smoking can cause many illnesses along the way. As a healthcare provider, we recommend that you stop smoking. Assistance with quitting is available by contacting 0-578-CKKH-NOW. This is a free resource providing counseling, [...] Be sure to sign up for the [employer] patient portal, which gives you 03/09 access to your medical information ??? including these discharge instructions ??? using your computer, smartphone, or tablet. Just go to [employer] to get started. Questions? Call . [facility] would like to thank you for allowing us to assist you with your healthcare needs. GERTRUDE Mcconnell VERONICA GAY, (or branch sales and service representative) have received the above patient education materials/instructions and have verbalized understanding: Patient Signature _ Date/Time Patient Oncology Research Rn Signature (if needed) Date/Time Clinician/Hospital Oncology Research Rn Signature (if needed) Date/Time Electronically signed by Jorge Alberto, [facility] Conversion Child Care Cook Cerner at 05/29/2022 8:56 PM CDT documented in this encounter Plan of Treatment Not on file documented as of this encounter Visit Diagnoses Not on filedocumented in this encounter
--- OUTSIDE RECORDS SUMMARY | 2024-12-29 06:05 | XMS_ITS | Encounter Summary ---
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
--- OUTSIDE RECORDS SUMMARY | 2024-12-29 06:05 | XMS_ITS | Encounter Summary ---
Author Organization [employer] ([place], [place], [place], [place], [place]) Address [address] [place] [address] Care Team Providers Care Greenhouse Worker Name Role Phone Unavailable Primary Care Provider Unavailabl e Encounter Details Date Type Department Care Team (Late st Contact Info) Description 05/07/2018 Transcribed Document [facility] [place] [facility] [place] [address] ProviderZion MD [address] [place] [address] Social History Tobacco Use Types Packs/Day [...] Zion ProviderMD - 05/07/2018 4:09 PM CDT [address] [place] [address] Patient Copy Patient Information: Name: ETHAN CROINN Current Date: 05/07/2018 16:09:51 : 1960 Patient Address: [address] [place] [phone] Patient Attending Physician: AJAY MARCANO MD-GUICHO Primary Care Provider: SUJIT DAWKINS (REF)IFTIKHAR Primary Care Provider Discharge Diagnosis: Weight on Admission: 163 lb, 0 oz Comment: Follow-up Instructions: With: Address: When: JOHN TSAI [address] [facility] [place] [address] Par[employer]1) 11:45 AM With: Address: Jenn: AJAY MARCANO [address] [facility], [address] [place] [address] [employer] (1) Within 2 to 3 days Comments: [...] you are awake and alert. ??? Take [id number] and prescription medicines only as told by [...] 11/18/2013 Document Revised: 07/02/2016 Document Reviewed: 05/19/2016 [employer] Interactive Patient Education ? 2017 [employer] Transesophageal Echocardiogram Transesophageal echocardiography (BROCK) is [...] 11/25/2009 Document Revised: 07/05/2016 Document Reviewed: 07/30/2013 [employer] Interactive Patient Education ? 2017 [employer] CIGARETTE SMOKING: The facts are clear, cigarette smoking will shorten your life. Smoking can cause many illnesses along the way. As a healthcare provider, we recommend that you stop smoking. Assistance with quitting is available by contacting 4-837-ZYKZ-NOW. This is a free resource providing counseling, [...] Be sure to sign up for the [employer] patient portal, which gives you 03/09 access to your medical information ??? including these discharge instructions ??? using your computer, smartphone, or tablet. Just go to [employer] to get started. Questions? Call . [facility] would like to thank you for allowing us to assist you with your healthcare needs. GERTRUDE Mcconnell VERONICA GAY, (or medical sales representative) have received the above patient education materials/instructions and have verbalized understanding: Patient Signature _ Date/Time Patient Lathe Operator Contact Lens Signature (if needed) Date/Time Clinician/Hospital Lathe Operator Contact Lens Signature (if needed) Date/Time Electronically signed by Interface, [facility] Conversion Core Placer Cerner at 05/29/2022 8:55 PM CDT documented in this encounter Plan of Treatment Not on file documented as of this encounter Visit Diagnoses Not on filedocumented in this encounter
--- OUTSIDE RECORDS SUMMARY | 2024-12-29 06:06 | XMS_ITS | Clinical Summary ---
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 Name Role Phone Cosme Davis MD Primary Care Provider [phone] Allergies No known active allergies Medications * [...] MG EC tablet 4 Active HYDROcodone-ac etaminophen ([place]) 5-325 MG tablet 5 Active insulin syringe-needle [...] - 11/13/2024 11:59 PM EDT Hospital Encounter [facility] Radiology [address], 1st [place] [address] Pain in pelvis Discharge Disposition: Home or Self Care 11/13/2024 11:20 AM EDT Office Visit [facility] Orthopaedic Surgery & Sports Medicine [address], 1st [address] [place] [address] Paulo Marquis MD Pain in pelvis (Primary Dx) 11/13/2024 Travel 10/19/2024 Travel 10/18/2024 Travel 10/16/2024 Travel 10/14/2024 Travel 10/13/2024 Travel 10/12/2024 Orders Only External Location [address] [place] [id number] Tito Madrid MD 10/12/2024 Orders Only External Location [address] [place] [id number] Tito Madrid MD 10/12/2024 Orders Only External Location [address] [place] [address] Tito Madrid MD 10/12/2024 Travel [...] in a custodial (including now)? No 10/13/2024 [facility] Utilities Answer Date Recorded In the past 12 months has city hospital electric, gas, oil, or water company threatened [...] [facility] Vascular Lab [address] [facility] 5th Floor [address], [address] [place] [address] 01/21/2025 2:00 PM EST Appointment [facility] Vascular Lab [address] Floor [address], [address] [place] [address] 01/21/2025 2:40 PM EST Office Visit [facility] Comprehensive Vascular Clinic [address] [facility] 5th Floor Wing [address], [address] [place] [address] Jose Rosario MD [address] [facility] [address] [place] [address] Health Maintenance Due Date Last Done Comments [facility]-Depression Screening 1962 [facility]-Medicare Annual Wellness (AWV) 1960 [facility]-/Child/Adol SDOH Screenings 1960 [id number] Vaccine (#1) 06/04/1967 Diabetes: Dental Exam 1972 [...] HORMONE (ACTH) Routine 10/16/2024 8:11 AM EDT [facility] CRITICAL CARE, E/M 30-74 MINUTES Routine 10/16/2024 6:41 AM EDT Closed fracture of ramus of right pubis, initial encounter ([facility]) Shock ([facility]) Essential hypertension Complex medical condition POCT [...] EDT CORTISOL Routine 10/15/2024 8:29 AM EDT [facility] CRITICAL CARE, E/M 30-74 MINUTES Routine 10/15/2024 [...] KNOWN SYPHILIS) Routine 10/14/2024 9:44 AM EDT [facility] CRITICAL CARE, E/M 30-74 MINUTES Routine 10/14/2024 8:59 AM EDT Closed fracture of ramus of right pubis, initial encounter ([facility]) Shock ([facility]) XR CHEST 1 VIEW STAT 10/14/2024 [...] Routine 10/13/2024 9:26 AM EDT Shock (CMS/HCC) MS INSERT NON-TUNNEL CV CATH Routine 10/13/2024 9:26 AM EDT Shock (CMS/HCC) XR CHEST 1 VIEW STAT 10/13/2024 9:25 AM EDT HC INSERT CATH,ART,PERCUT,SHORTTERM Routine 10/13/2024 9:09 AM EDT Shock (CMS/HCC) MS INSERT CATH,ART,PERCUT,SHORTTERM Routine 10/13/2024 9:09 AM EDT [...] resultswithin the time period is included. Pathologist [facility] POCT Glucose 251(H) 74 - 99 [...] Comment 10/30/2024 12:01 PM EDT HEALTHCARE LAB Electroneurodiagnostic Technologist ID Jessika Schneider 025 12:01 PM EDT HEALTHCARE LAB Device ID [id number] 10/30/2024 12:01 PM EDT HEALTHCARE LAB Specimen Type POC Capillary 10/30/2024 12:01 PM EDT HEALTHCARE LAB Blood Capillary blood specimen / Unknown 10/30/2024 11:58 AM EDT 10/30/2024 12:01 PM EDT us Tiffany Patten DO LAB POINT OF CARE TE ST DOCKED DEVICE UNSOLICITED RESULTS Final Result [facility] [address] [place] [address] * (ABNORMAL) CBC W/O Differential (10/28/2024 3:43 AM EDT) Only the most recent of4 resultswithin the time period is included. Pathologist [facility] WBC Count 9.69 3.70 - 10.30 10*3/uL LAB HEMATOLOGY METHOD 10/28/2024 4:21 AM EDT HEALTHCARE LAB RBC Count 2.95(L) 3.90 - 5.20 10*6/uL LAB HEMATOLOGY METHOD 10/28/2024 4:21 AM EDT [facility] HGB 8.3(L) 11.2 - 15.7 g/dL LAB HEMATOLOGY METHOD 10/28/2024 4:21 AM EDT [facility] HCT 27.0(L) 34.0 - 45.0 % LAB HEMATOLOGY METHOD 10/28/2024 4:21 AM EDT [facility] Platelet Count 363 155 - 369 10*3/uL LAB HEMATOLOGY METHOD 10/28/2024 4:21 AM EDT [facility] MCV 92 79 - 98 fL LAB HEMATOLOGY METHOD 10/28/2024 4:21 AM EDT [facility] MCH 28.1 26.0 - 32.0 pg LAB HEMATOLOGY METHOD 10/28/2024 4:21 AM EDT [facility] MCHC 30.7 30.7 - 35.5 g/dL LAB HEMATOLOGY METHOD 10/28/2024 4:21 AM EDT [facility] RDW 24.8(H) 11.5 - 14.5 % LAB HEMATOLOGY METHOD 10/28/2024 4:21 AM EDT [facility] MPV 11.9 8.8 - 12.5 fL LAB HEMATOLOGY METHOD 10/28/2024 4:21 AM EDT [facility] nRBC 0.0 <=0.0 per 100 WBCs LAB HEMATOLOGY METHOD 10/28/2024 4:21 AM EDT [facility] Blood Venous blood specimen / Unknown Venipuncture / Unknown 10/28/2024 3:43 AM EDT 10/28/2024 4:13 AM EDT us Tiffany Patten DO LAB BLOOD ORDERABLES Final Re sult [facility] [address] [place] [address] * Magnesium, Plasma (10/28/2024 3:43 AM EDT) Only the most recent of5 resultswithin the time period is included. Magnesium, Plasma 2.2 1.9 - 2.4 mg/dL 10/28/2024 4:42 AM EDT [facility] Blood Venous blood specimen / Unknown Venipuncture / Unknown 10/28/2024 3:43 AM EDT 10/28/2024 4:13 AM EDT us Tiffany Patten DO LAB BLOOD ORDERABLES Final Re sult [facility]ALTHCARE LAB [address] [place] [address] * (ABNORMAL) Renal Function Panel, Plasma (10/28/2024 3:43 AM EDT) Glucose, Plasma 276(H) 74 - 99 mg/dL 10/28/2024 4:42 AM EDT [facility] BUN, Plasma 89(H) 8 - 23 mg/dL 10/28/2024 4:42 AM EDT [facility] Creatinine, Plasma 2.19(H) 0.60 - 1.10 mg/dL 10/28/2024 4:42 AM EDT [facility] BUN/Creatinine Ratio 41 10/28/2024 4:42 AM EDT [facility] Sodium, Plasma 138 136 - 145 mmol/L 10/28/2024 4:42 AM EDT [facility] Potassium, Plasma 5.1(H) 3.6 - 4.9 mmol/L 10/28/2024 4:42 AM EDT [facility] Chloride, Plasma 102 97 - 107 mmol/L 10/28/2024 4:42 AM EDT [facility] CO2, Plasma 25 22 - 29 mmol/L 10/28/2024 4:42 AM EDT [facility] Anion Gap 11 6 - 16 mmol/L 10/28/2024 4:42 AM EDT [facility] Total Calcium, Plasma 8.9 8.9 - 10.2 mg/dL 10/28/2024 4:42 AM EDT [facility] Phosphorus, Plasma 2.8 2.5 - 4.5 mg/dL 10/28/2024 4:42 AM EDT [facility] Albumin, Plasma 3.0(L) 3.5 - 5.2 g/dL 10/28/2024 4:42 AM EDT [facility] eGFRcr 24.9 mL/min/1.7 3m*2 10/28/2024 4:42 AM EDT [facility] Comment:Reported eGFRcr in m L/min/1.73m2 is based the CKD-EPI 2020 equation that does not use a race coefficient. Blood Venous blood specimen / Unknown Venipuncture / Unknown 10/28/2024 3:43 AM EDT 10/28/2024 4:13 AM EDT Tiffany Patten DO LAB BLOOD ORDERABLES Final Re sult [facility]ARE [facility] [address] [place] [address] * (ABNORMAL) CBC and differential (10/26/2024 9:19 AM EDT) Only the most recent of11 resultswithin the time period is included. WBC Count 9.12 3.70 - 10.30 10*3/uL LAB HEMATOLOGY METHOD 10/26/2024 9:25 AM EDT [facility] RBC Count 3.03(L) 3.90 - 5.20 10*6/uL LAB HEMATOLOGY METHOD 10/26/2024 9:25 AM EDT [facility] HGB 8.5(L) 11.2 - 15.7 g/dL LAB HEMATOLOGY METHOD 10/26/2024 9:25 AM EDT [facility] HCT 27.1(L) 34.0 - 45.0 % LAB HEMATOLOGY METHOD 10/26/2024 9:25 AM EDT [facility] Platelet Count 331 155 - 369 10*3/uL LAB HEMATOLOGY METHOD 10/26/2024 9:25 AM EDT [facility] MCV 89 79 - 98 fL LAB HEMATOLOGY METHOD 10/26/2024 9:25 AM EDT [facility] MCH 28.1 26.0 - 32.0 pg LAB HEMATOLOGY METHOD 10/26/2024 9:25 AM EDT [facility] MCHC 31.4 30.7 - 35.5 g/dL LAB HEMATOLOGY METHOD 10/26/2024 9:25 AM EDT [facility] RDW 24.6(H) 11.5 - 14.5 % LAB HEMATOLOGY METHOD 10/26/2024 9:25 AM EDT [facility] MPV 11.4 8.8 - 12.5 fL LAB HEMATOLOGY METHOD 10/26/2024 9:25 AM EDT [facility] nRBC 0.0 <=0.0 per 100 WBCs LAB HEMATOLOGY METHOD 10/26/2024 9:25 AM EDT [facility] Differential Type Automated LAB HEMATOLOGY METHOD 10/26/2024 9:25 AM EDT [facility] Neutrophils % 76 % LAB HEMATOLOGY METHOD 10/26/2024 9:25 AM EDT [facility] Lymphocytes % 13 % LAB HEMATOLOGY METHOD 10/26/2024 9:25 AM EDT [facility] Monocytes % 7 % LAB HEMATOLOGY METHOD 10/26/2024 9:25 AM EDT [facility] Eosinophils % 3 % LAB HEMATOLOGY METHOD 10/26/2024 9:25 AM EDT [facility] Basophils % 1 % LAB HEMATOLOGY METHOD 10/26/2024 9:25 AM EDT [facility] Immature Granulocytes % 0 % LAB HEMATOLOGY METHOD 10/26/2024 9:25 AM EDT [facility] Neutrophils Absolute 6.90(H) 1.60 - 6.10 10*3/uL LAB HEMATOLOGY METHOD 10/26/2024 9:25 AM EDT [facility] Lymphocytes Absolute 1.22 1.20 - 3.90 10*3/uL LAB HEMATOLOGY METHOD 10/26/2024 9:25 AM EDT [facility] Monocytes Absolute 0.60 0.30 - 0.90 10*3/uL LAB HEMATOLOGY METHOD 10/26/2024 9:25 AM EDT [facility] Eosinophils Absolute 0.31 0.00 - 0.50 10*3/uL LAB HEMATOLOGY METHOD 10/26/2024 9:25 AM EDT [facility] Basophils Absolute 0.05 0.00 - 0.10 10*3/uL LAB HEMATOLOGY METHOD 10/26/2024 9:25 AM EDT [facility] Immature Granulocytes Absolute 0.04 0.00 - 0.06 10*3/uL LAB HEMATOLOGY METHOD 10/26/2024 9:25 AM EDT [facility]ALTH[facility]ARE LAB Blood Venous blood specimen / Unknown Venipuncture / Unknown 10/26/2024 9:19 AM EDT 10/26/2024 9:23 AM EDT [facility] HEALTHCARE LAB - 10/26/2024 9:25 AM EDT Therapeutic decision making should be based on absolute values, rather than percentages. us Yuriy Lockett MD LAB BLOOD ORDERABLES Final Resul t [facility]ALTH[facility]ARE [facility] [address] [place], [place] [id number] * (ABNORMAL) Basic metabolic panel (10/26/2024 9:19 AM EDT) Only the most recent of10 resultswithin the time period is included. Glucose, Plasma 244(H) 74 - 99 mg/dL 10/26/2024 9:49 AM EDT [facility] BUN, Plasma 76(H) 8 - 23 mg/dL 10/26/2024 9:49 AM EDT [facility] Creatinine, Plasma 1.97(H) 0.60 - 1.10 mg/dL 10/26/2024 9:49 AM EDT [facility] BUN/Creatinine Ratio 39 10/26/2024 9:49 AM EDT [facility] Sodium, Plasma 138 136 - 145 mmol/L 10/26/2024 9:49 AM EDT [facility] Potassium, Plasma 5.0(H) 3.6 - 4.9 mmol/L 10/26/2024 9:49 AM EDT [facility] Chloride, Plasma 102 97 - 107 mmol/L 10/26/2024 9:49 AM EDT [facility] CO2, Plasma 25 22 - 29 mmol/L 10/26/2024 9:49 AM EDT [facility] Anion Gap 11 6 - 16 mmol/L 10/26/2024 9:49 AM EDT [facility] Total Calcium, Plasma 8.7(L) 8.9 - 10.2 mg/dL 10/26/2024 9:49 AM EDT [facility] eGFRcr 28.3 mL/min/1.7 3m*2 10/26/2024 9:49 AM EDT [facility] Comment:Reported eGFRcr in m L/min/1.73m2 is based the CKD-EPI 2020 equation that does not use a race coefficient. Blood Venous blood specimen / Unknown Venipuncture / Unknown 10/26/2024 9:19 AM EDT 10/26/2024 9:23 AM EDT us Yuriy Lockett MD LAB BLOOD ORDERABLES Final Resul t [facility]ALTH[facility]ARE [facility] [address] [place] [address] * (ABNORMAL) Hemoglobin and Hematocrit, Blood (10/25/2024 12:23 PM EDT) Only the most recent of11 resultswithin the time period is included. HGB 8.1(L) 11.2 - 15.7 g/dL LAB HEMATOLOGY METHOD 10/25/2024 12:30 PM EDT [facility] HCT 25.4(L) 34.0 - 45.0 % LAB HEMATOLOGY METHOD 10/25/2024 12:30 PM EDT [facility] Blood Venous blood specimen / Unknown Venipuncture / Unknown 10/25/2024 12:23 PM EDT 10/25/2024 12:27 PM EDT us Yuriy Lockett MD LAB BLOOD ORDERABLES Final Resul t Performing Organization Address City/[facility] de Phone Number [facility] [address] [place] [address] * (ABNORMAL) Potassium (10/23/2024 10:26 AM EDT) Only the most recent of3 resultswithin the time period is included. Potassium, Plasma 5.2(H) 3.6 - 4.9 mmol/L 10/23/2024 10:53 AM EDT [facility] Blood Venous blood specimen / Unknown Venipuncture / Unknown 10/23/2024 10:26 AM EDT 10/23/2024 10:33 AM EDT us Yuriy Lockett MD LAB BLOOD ORDERABLES Final Resul t Performing Organization Address City/[facility] Co de Phone Number [facility] [address] [place] [address] * ECG Adult (10/23/2024 8:22 AM EDT) Only the most recent of4 resultswithin the time period is included. EKG DIAGNOSIS CLASS Abnormal MUSE ECG Ventricular Rate 85 BPM MUSE ECG QRSD Interval 94 ms MUSE ECG QT Interval 378 ms MUSE ECG QTC Interval 449 ms MUSE ECG R [place] 23 degrees MUSE ECG T Wave [place] 124 degrees MUSE ECG Diagnosis Atrial fibrillation [...] 7:08 PM EDT us Yuriy Lockett MD [facility] BLOOD BANK TEST ORDERABLES F inal Result Performing Organization Address City/[facility]/ZIP Co de Phone Number BLOOD BANK [address] [place] [address], [place] * Antibody Identification (10/22/2024 7:04 PM EDT) Only the most recent of3 resultswithin the time period is included. Antibody ID Anti-E Non-specif ic Patricia 10/22/2024 8:04 PM EDT BLOOD BANK Blood Venous blood specimen / Unknown Venipuncture / Unknown 10/22/2024 7:04 PM EDT 10/22/2024 7:08 PM EDT us Yuriy Lockett MD [facility] BLOOD BANK TEST ORDERABLES F inal Result Performing Organization Address City/[facility]/ZIP Co de Phone Number BLOOD [facility] [address] [place] [address], [place] * (ABNORMAL) Type and screen (10/22/2024 [...] 10/22/2024 7:08 PM EDT Yuriy Lockett MD [facility] BLOOD BANK TEST ORDERABLES F inal Result Performing Organization Address [facility] de Phone Number BLOOD BANK [address] [place] [address], [place] * Prepare Leukocyte Reduced RBC: 1 Units (10/22/2024 5:02 PM EDT) Only the most recent of3 resultswithin the time period is included. [facility] Signature Product Code [id number] BLOO D BANK Dispense Status Transfused BLOOD BANK Blood Expiration Date [id number] BLOOD BANK Unit Number [id number] B LOOD BANK Product Blood Type 5100 BLOOD BANK Blood Type O+ BLOOD BANK Crossmatch Compatible BLOOD BANK Other Yuriy Lockett MD BLOOD BANK PRODUCT ORDERABLES Fi nal Result Performing Organization Address [facility] de Phone Number BLOOD BANK [address] [place] [address], [place] * XR Knee Right 3 Views [...] - 4.5 mg/dL 10/17/2024 1:43 AM EDT [facility] Blood Venous blood specimen / Unknown Venipuncture / Unknown 10/17/2024 1:04 AM EDT 10/17/2024 1:14 AM EDT us Aidan Harrison MD LAB BLOOD ORDERABLES Final Res ult [facility] [address] [place] [address] * (ABNORMAL) Comprehensive metabolic panel (10/17/2024 1:04 AM EDT) Only the most recent of4 resultswithin the time period is included. Glucose, Plasma 138(H) 74 - 99 mg/dL 10/17/2024 1:43 AM EDT [facility] BUN, Plasma 50(H) 8 - 23 mg/dL 10/17/2024 1:43 AM EDT [facility] Creatinine, Plasma 1.74(H) 0.60 - 1.10 mg/dL 10/17/2024 1:43 AM EDT [facility] BUN/Creatinine Ratio 29 10/17/2024 1:43 AM EDT [facility] Sodium, Plasma 141 136 - 145 mmol/L 10/17/2024 1:43 AM EDT [facility] Potassium, Plasma 4.0 3.6 - 4.9 mmol/L 10/17/2024 1:43 AM EDT [facility] Chloride, Plasma 114(H) 97 - 107 mmol/L 10/17/2024 1:43 AM EDT [facility] CO2, Plasma 16(L) 22 - 29 mmol/L 10/17/2024 1:43 AM EDT [facility] Anion Gap 11 6 - 16 mmol/L 10/17/2024 1:43 AM EDT [facility] Total Calcium, Plasma 8.2(L) 8.9 - 10.2 mg/dL 10/17/2024 1:43 AM EDT [facility] Total Protein 5.2(L) 6.3 - 7.9 g/dL 10/17/2024 1:43 AM EDT [facility] Albumin, Plasma 2.9(L) 3.5 - 5.2 g/dL 10/17/2024 1:43 AM EDT [facility] AST, Plasma 15 10 - 35 U/L 10/17/2024 1:43 AM EDT [facility] ALT, Plasma 5(L) 10 - 35 U/L 10/17/2024 1:43 AM EDT [facility] Alkaline Phosphatase, Plasma 85 46 - 142 U/L 10/17/2024 1:43 AM EDT [facility] Total Bilirubin, Plasma 0.2 0.2 - 1.1 mg/dL 10/17/2024 1:43 AM EDT [facility] eGFRcr 32.8 mL/min/1.7 3m*2 10/17/2024 1:43 AM EDT [facility] Comment:Reported eGFRcr in m L/min/1.73m2 is based the CKD-EPI 2020 equation that does not use a race coefficient. Blood Venous blood specimen / Unknown Venipuncture / Unknown 10/17/2024 1:04 AM EDT 10/17/2024 1:14 AM EDT us Aidan Harrison MD LAB BLOOD ORDERABLES Final Res ult [facility] [address] [place] [address] * [place] Modified Barium Swallow (10/16/2024 3:05 [...] sips by the cup or the teaspoon. [place] consistency (IDDSI 2): There is no aspiration [...] sips by the cup or the teaspoon. [place] consistency (IDDSI 2): There is no aspiration [...] analytical performance characteristics have been determined by [employer]. It has not been cleared or approved by the FDA. This assay has been validated pursuant to the CLIA regulations and is used for clinical purposes. Blood Venous blood specimen / Unknown Venipuncture / Unknown 10/16/2024 8:11 AM EDT 10/16/2024 8:22 AM EDT Narrative [facility] ([facility]) ([facility]) - 10/20/2024 12:14 PM EDT Performing Organization Information: Site ID: [id number] Name: [employer] Address: [address] [place] [id number] Director: Enedina Thao MD, PhD Aidan Harrison MD LAB BLOOD ORDERABLES Final Res ult [facility] (BEAKER) [facility] [address] [place] [address] * (ABNORMAL) ACTH (10/16/2024 8:11 AM EDT) Only the most recent of2 resultswithin the time period is included. ACTH 5.45(L) 7.2 - 63 pg/mL 10/16/2024 11:38 AM EDT [facility] Blood Venous blood specimen / Unknown Venipuncture / Unknown 10/16/2024 8:11 AM EDT 10/16/2024 8:42 AM EDT Aidan Harrison MD LAB BLOOD ORDERABLES Final Res ult Performing Organization Address City/[facility]/ZIP Co de Phone Number [facility] [address] [place] [address] * Folate (10/16/2024 8:11 AM EDT) Folate, Serum 8.2 >4.6 ng/mL 10/16/2024 9:29 AM EDT [facility] Blood Venous blood specimen / Unknown Venipuncture / Unknown 10/16/2024 8:11 AM EDT 10/16/2024 8:34 AM EDT us Aidan Harrison MD LAB BLOOD ORDERABLES Final Res ult [facility] [address] [place] [address] * Ferritin (10/16/2024 8:11 AM EDT) Ferritin, Serum 73 13 - 150 ng/mL 10/16/2024 9:29 AM EDT [facility] Blood Venous blood specimen / Unknown Venipuncture / Unknown 10/16/2024 8:11 AM EDT 10/16/2024 8:34 AM EDT us Aidan Harrison MD LAB BLOOD ORDERABLES Final Res ult Performing Organization Address City/[facility]/ZIP Co de Phone Number [facility] [address] [place] [address] * Vitamin B12 (10/16/2024 8:11 AM EDT) Vitamin B12, Serum 906 210 - 1,033 pg/mL 10/16/2024 9:[address] [facility] Blood Venous blood specimen / Unknown Venipuncture / Unknown 10/16/2024 8:11 AM EDT 10/16/2024 8:34 AM EDT Aidan Harrison MD LAB BLOOD ORDERABLES Final Res ult Performing Organization Address [facility] [place] [address] * [place] CRITICAL CARE, E/M 30-74 MINUTES (10/16/2024 6:41 [...] - 160 ug/dL 10/16/2024 7:15 AM EDT [facility] Transferrin, Plasma 159(L) 200 - 360 mg/dL 10/16/2024 7:15 AM EDT [facility] Total Iron Binding Capacity, Plasma 199(L) 240 - 450 ug/mL 10/16/2024 7:15 AM EDT [facility] Transferrin Saturation 11(L) 14 - 50 % 10/16/2024 7:15 AM EDT [facility] Blood Venous blood specimen / Unknown Venipuncture / Unknown 10/16/2024 12:09 AM EDT 10/16/2024 12:37 AM EDT Aidan Harrison MD LAB BLOOD ORDERABLES Final Res ult Performing Organization Address [facility]/ZIP Co de Phone Number [facility] [address] [place] [address] * CORTISOL, 60 (10/15/2024 1:29 PM EDT) Cortisol Time=60 36.10 Before 10am: 3.7 - 19.4. After 5pm: 2.9 - 17.3 ug/dL 10/15/2024 3:46 PM EDT [facility] Comment:Administer cosyntrop in and obtain serum cortisol a Blood Venous blood specimen / Unknown Venipuncture / Unknown 10/15/2024 1:29 PM EDT 10/15/2024 2:03 PM EDT Aidan Harrison MD LAB BLOOD ORDERABLES Final Res ult [facility] [address] [place] [address] * Cortisol, 30 (10/15/2024 12:55 PM EDT) Cortisol,Time=30 31.20 Before 10am: 3.7 - 19.4. After 5pm: 2.9 - 17.3 ug/dL 10/15/2024 2:42 PM EDT [facility] Comment:Administer cosyntrop in and obtain serum cortisol a Blood Venous blood specimen / Unknown Venipuncture / Unknown 10/15/2024 12:55 PM EDT 10/15/2024 1:21 PM EDT Aidan Harrison MD LAB BLOOD ORDERABLES Final Res ult Performing Organization Address City/[facility]/ZIP Co de Phone Number [facility] [address] [place] [address] * Aldosterone (10/15/2024 12:08 PM EDT) Aldosterone 23.0 4.0 - 31.0 ng/dL 10/16/2024 1:[address] [facility] Blood Venous blood specimen / Unknown Venipuncture / Unknown 10/15/2024 12:08 PM EDT 10/15/2024 2:08 PM EDT us Aidan Harrison MD LAB BLOOD ORDERABLES Final Res ult Performing Organization Address [facility] Co de Phone Number [facility] [address] [place] [address] * Cortisol Baseline (10/15/2024 12:08 PM EDT) Cortisol (Baseline) 11.60 Before 10am: 3.7 - 19.4. After 5pm: 2.9 - 17.3 ug/dL 10/15/2024 2:07 PM EDT [facility] Comment:Administer cosyntrop in and obtain serum cortisol a Blood Venous blood specimen / Unknown Venipuncture / Unknown 10/15/2024 12:08 PM EDT 10/15/2024 12:14 PM EDT us Aidan Harrison MD LAB BLOOD ORDERABLES Final Res ult Performing Organization Address City/[facility] Co de Phone Number [facility] [address] [place] [address] * Cortisol (10/15/2024 8:29 AM EDT) Cortisol 9.60 Before 10am: 3.7 - 19.4. After 5pm: 2.9 - 17.3 ug/dL 10/15/2024 9:29 AM EDT [facility] Comment:Testing performed on [employer], standardized against [facility] Reference Standard concentration values assigned by LC-MS/MS and verified by BCR 192 and BCR 193 certified reference materials. Blood Venous blood specimen / Unknown Venipuncture / Unknown 10/15/2024 8:29 AM EDT 10/15/2024 8:38 AM EDT us Aidan Harrison MD LAB REF LAB BLOOD AND FLUID OR D Final Result [facility] [address] [place] [address] * MS CRITICAL CARE, E/M 30-74 MINUTES (10/15/2024 6:49 [...] 0.16(H) <0.09 ng/mL 10/15/2024 6:41 AM EDT [facility] Blood Arterial blood specimen / Unknown Arterial Puncture / Unknown 10/15/2024 3:23 AM EDT 10/15/2024 3:31 AM EDT Narrative [facility] - 10/15/2024 6:41 AM [...] predict 28 day mortality risk. Please consult [email or web address] for more information. Test performed at [facility]. us Aidan Harrison MD LAB BLOOD ORDERABLES Final Res ult [facility] [address] [place] [address] * (ABNORMAL) Comprehensive Urine Drug Screening, Qualitative Assay, >= 27 Drug Classes (53:04 PM EDT) Acetaminophen Negative Negative 10/16/2024 9:48 AM EDT [facility] Alprazolam Negative Negative 10/16/2024 9:48 AM EDT [facility] Amantadine Negative Negative 10/16/2024 9:48 AM EDT [facility] Amitriptyline Negative Negative 10/16/2024 9:48 AM EDT [facility] Amphetamine Negative Negative 10/16/2024 9:48 AM EDT [facility] Atenolol Negative Negative 10/16/2024 9:48 AM EDT [facility] Benzoylecgonine Negative Negative 9:48 AM EDT [facility] Bisoprolol Negative Negative 10/16/2024 9:48 AM EDT [facility] Bupropion Negative Negative 10/16/2024 9:48 AM EDT [facility] Butalbital Negative Negative 10/16/2024 9:48 AM EDT [facility] Carbamazepine Negative Negative 10/16/2024 9:48 AM EDT [facility] Carisoprodol Negative Negative 10/16/2024 9:48 AM EDT [facility] Chlorpheniramine Negative Negative 10/17/19 9:48 AM EDT [facility] Citalopram Negative Negative 10/16/2024 9:48 AM EDT [facility] Clindamycin Negative Negative 10/16/2024 9:48 AM EDT [facility] Clonidine Negative Negative 10/16/2024 9:48 AM EDT [facility] Clopidogrel / Ticlopidine Negative Negative 10/16/2024 9:48 AM EDT [facility] Cocaethylene Negative Negative 10/16/2024 9:48 AM EDT [facility] Cocaine Negative Negative 10/16/2024 9:48 AM EDT [facility] Codeine Negative Negative 10/16/2024 9:48 AM EDT [facility] Cyclobenzaprine Negative Negative 9:48 AM EDT [facility] Desvenlafaxine Negative Negative 10/16/2024 9:48 AM EDT [facility] Dextromethorphan Negative Negative 10/17/19 9:48 AM EDT [facility] Diazepam Negative Negative 10/16/2024 9:48 AM EDT [facility] Diltiazem Negative Negative 10/16/2024 9:48 AM EDT [facility] Diphenhydramine Negative Negative 9:48 AM EDT [facility] Doxepine Negative Negative 10/16/2024 9:48 AM EDT [facility] Doxylamine Negative Negative 10/16/2024 9:48 AM EDT [facility] EDDP-Methadone metabolite Negative Negative 10/16/2024 9:48 AM EDT [facility] Fentanyl Negative Negative 10/16/2024 9:48 AM EDT [facility] Fluconazole Negative Negative 10/16/2024 9:48 AM EDT [facility] Fluoxetine Negative Negative 10/16/2024 9:48 AM EDT [facility] Guaifenesin Negative Negative 10/16/2024 9:48 AM EDT [facility] Haloperidol Negative Negative 10/16/2024 9:48 AM EDT [facility] Heroin/6-JUVENCIO Negative Negative 10/16/2024 9:48 AM EDT [facility] Hydrocodone Negative Negative 10/16/2024 9:48 AM EDT [facility] Hydroxyzine / Cetirizine metabolite Negative Negative 10/16/2024 9:48 AM EDT [facility] Ibuprofen Negative Negative 10/16/2024 9:48 AM EDT [facility] Imipramine Negative Negative 10/16/2024 9:48 AM EDT [facility] Ketamine Negative Negative 10/16/2024 9:48 AM EDT [facility] Labetolol Negative Negative 10/16/2024 9:48 AM EDT [facility] Lamotrigine Negative Negative 10/16/2024 9:48 AM EDT [facility] Levetiracetam Negative Negative 10/16/2024 9:48 AM EDT [facility] Lidocaine Positive(A) Negative 10/16/2024 9:48 AM EDT [facility] MDA Negative Negative 10/16/2024 9:48 AM EDT [facility] MDMA Negative Negative 10/16/2024 9:48 AM EDT [facility] Memantine Negative Negative 10/16/2024 9:48 AM EDT [facility] Meperidine Negative Negative 10/16/2024 9:48 AM EDT [facility] Meprobamate Negative Negative 10/16/2024 9:48 AM EDT [facility] Metaxalone Negative Negative 10/16/2024 9:48 AM EDT [facility] Methamphetamine Negative Negative 9:48 AM EDT [facility] Methocarbamol Negative Negative 10/16/2024 9:48 AM EDT [facility] Methylecgonine Negative Negative 10/16/2024 9:48 AM EDT [facility] Metoclopramide Negative Negative 10/16/2024 9:48 AM EDT [facility] Metoprolol Negative Negative 10/16/2024 9:48 AM EDT [facility] Metronidazole Negative Negative 10/16/2024 9:48 AM EDT [facility] Midazolam Negative Negative 10/16/2024 9:48 AM EDT [facility] Midazolam Metabolite Negative Negative 10/16/2024 9:48 AM EDT [facility] Mirtazapine Negative Negative 10/16/2024 9:48 AM EDT [facility] Misc Test Result Positive(A) Negative 025 9:48 AM EDT [facility] Comment: Escitalopram Citalopram Trazodone Naproxen Negative Negative 10/16/2024 9:48 AM EDT [facility] Nefazodone Negative Negative 10/16/2024 9:48 AM EDT [facility] Norfentanyl Negative Negative 10/16/2024 9:48 AM EDT [facility] Nortriptyline Negative Negative 10/16/2024 9:48 AM EDT [facility] Ordanstron Negative Negative 10/16/2024 9:48 AM EDT [facility] Oxcarbazepine Negative Negative 10/16/2024 9:48 AM EDT [facility] Oxycodone Positive(A) Negative 10/16/2024 9:48 AM EDT [facility] Paroxethine Negative Negative 10/16/2024 9:48 AM EDT [facility] Phenobarbital Negative Negative 10/16/2024 9:48 AM EDT [facility] Phentermine Negative Negative 10/16/2024 9:48 AM EDT [facility] Phenytoin Negative Negative 10/16/2024 9:48 AM EDT [facility] Primidone Negative Negative 10/16/2024 9:48 AM EDT [facility] Promethazine Negative Negative 10/16/2024 9:48 AM EDT [facility] Propofol Negative Negative 10/16/2024 9:48 AM EDT [facility] Propranolol Negative Negative 10/16/2024 9:48 AM EDT [facility] Quetiapine Negative Negative 10/16/2024 9:48 AM EDT [facility] Quinine Negative Negative 10/16/2024 9:48 AM EDT [facility] Rantidine Negative Negative 10/16/2024 9:48 AM EDT [facility] Sertraline Negative Negative 10/16/2024 9:48 AM EDT [facility] Spironolactone Negative Negative 10/16/2024 9:48 AM EDT [facility] Tizanidine Negative Negative 10/16/2024 9:48 AM EDT [facility] Topiramate Negative Negative 10/16/2024 9:48 AM EDT [facility] Tramadol Negative Negative 10/16/2024 9:48 AM EDT [facility] Trazadone/ Trazadone metabolite Negative Negative 10/16/2024 9:48 AM EDT [facility] Trimethoprim Negative Negative 10/16/2024 9:48 AM EDT [facility] Valproic Acid Negative Negative 10/16/2024 9:48 AM EDT [facility] Venlafaxine Negative Negative 10/16/2024 9:48 AM EDT [facility] Verapamil Negative Negative 10/16/2024 9:48 AM EDT [facility] Zolpidem Negative Negative 10/16/2024 9:48 AM EDT [facility] Xylazine Negative Negative 10/16/2024 9:48 AM EDT [facility] Urine Urine specimen obtained by clean catch procedure / Unknown Non-blood Collection / Unknown 10/14/2024 3:04 PM EDT 10/14/2024 3:16 PM EDT us Aidan Harrison MD LAB URINE ORDERABLES Final Res ult [facility] [address] [place] [address] * Vitamin B1, Whole Blood (10/14/2024 2:35 PM EDT) Pathologist [facility] VITAMIN B1, WHOLE BLOOD 128 70 - 180 nmol/L 10/17/2024 1:55 PM EDT [facility] ([facility]) Blood Arterial blood specimen / Unknown Arterial Line / Unknown 10/14/2024 2:35 PM EDT 10/14/2024 2:50 PM EDT Narrative [facility] MICKY MOTLEY) - 10/17/2024 1:55 PM [...] developed and its performance characteristics determined by [employer]. It has not been cleared or approved by the [place] Food and Drug Administration. This test was performed in a CLIA certified laboratory and is intended for clinical purposes. Performed By: [employer] [address] [place], [place] [id number] Barrel Straightener: Jasper Newsome MD, PhD CLIA Number: [id number] us Aidan Harrison MD LAB BLOOD ORDERABLES Final Res ult [facility] ([facility]) [address] [place] [address] * (ABNORMAL) Blood gas panel with oximetry, mixed venous (10/14/2024 2:31 PM EDT) pH, Mixed Venous 7.27(L) 7.32 - 7.43 LAB HEMATOLOGY METHOD 10/14/2024 2:45 PM EDT [facility] pCO2, Mixed Venous 41 37 - 52 mmHg LAB HEMATOLOGY METHOD 10/14/2024 2:45 PM EDT [facility] pO2, Mixed Venous 34 25 - 40 mmHg LAB HEMATOLOGY METHOD 10/14/2024 2:45 PM EDT [facility] SO2, Measured, Mixed Venous 57(L) 65 - 80 % LAB HEMATOLOGY METHOD 10/14/2024 2:45 PM EDT [facility] Bicarbonate, Calculated, Mixed Venous 19(L) 22 - 26 mmol/L LAB HEMATOLOGY METHOD 10/14/2024 2:45 PM EDT [facility] Base Excess, Mixed Venous -7.6(L) -2.0 - 3.0 mmol/L LAB HEMATOLOGY METHOD 10/14/2024 2:45 PM EDT [facility] Hematocrit, Whole Blood 24.7(L) 34.0 - 45.0 % LAB HEMATOLOGY METHOD 10/14/2024 2:45 PM EDT [facility] Sodium, Whole Blood 144 136 - 145 mmol/L LAB HEMATOLOGY METHOD 10/14/2024 2:45 PM EDT [facility] Potassium, Whole Blood 3.6 3.6 - 4.9 mmol/L LAB HEMATOLOGY METHOD 10/14/2024 2:45 PM EDT [facility] Chloride, Whole Blood 113(H) 97 - 107 mmol/L LAB HEMATOLOGY METHOD 10/14/2024 2:45 PM EDT [facility] Ionized Calcium, Whole Blood 4.6 4.6 - 5.1 mg/dL LAB HEMATOLOGY METHOD 10/14/2024 2:45 PM EDT [facility] Glucose, Whole Blood 110(H) 74 - 99 mg/dL LAB HEMATOLOGY METHOD 10/14/2024 2:45 PM EDT [facility] Oxyhemoglobin, Mixed Venous, Whole Blood 56.2 40.0 - 70.0 % LAB HEMATOLOGY METHOD 10/14/2024 2:45 PM EDT [facility] Hemoglobin Reduced, Mixed Venous, Whole Blood 41.8 % LAB HEMATOLOGY METHOD 10/14/2024 2:45 PM EDT [facility] Total Hemoglobin, Mixed Venous, Whole Blood 8.1(L) 11.2 - 15.7 g/dL LAB HEMATOLOGY METHOD 10/14/2024 2:45 PM EDT [facility] Blood Mixed venous blood specimen / Unknown Venipuncture / Unknown 10/14/2024 2:31 PM EDT 10/14/2024 2:43 PM EDT us Aidan Harrison MD LAB BLOOD ORDERABLES Final Res ult [facility] [address] [place] [address] * Treponema Pallidum (Syphilis) Antibodies with Reflex to RPR and RPR Titer (Those with NO known Syphilis) (10/14/2024 9:44 AM EDT) Syphilis Antibody (IgG+IgM) Nonreactive Nonreactive 10/14/2024 11:42 AM EDT [facility] Comment:Nonreactive. No sero logic evidence of syphilis. No follow-up necessary unless clinically indicated (e.g., early syphilis). Blood Venous blood specimen / Unknown Venipuncture / Unknown 10/14/2024 9:44 AM EDT 10/14/2024 10:25 AM EDT us Aidan Harrison MD LAB BLOOD ORDERABLES Final Res ult Performing Organization Address [facility] [place] [address] * (ABNORMAL) T3 (10/14/2024 9:44 AM EDT) T3, Serum 47(L) 87 - 187 ng/dL 10/14/2024 11:57 PM EDT [facility] Blood Venous blood specimen / Unknown Venipuncture / Unknown 10/14/2024 9:44 AM EDT 10/14/2024 10:25 AM EDT us Aidan Harrison MD LAB BLOOD ORDERABLES Final Res ult Performing Organization Address [facility] [place] [address] * MS CRITICAL CARE, E/M 30-74 MINUTES (10/14/2024 8:59 [...] LAB HEMATOLOGY METHOD 10/14/2024 7:58 AM EDT [facility] pCO2, Arterial 35 35 - 48 mmHg LAB HEMATOLOGY METHOD 10/14/2024 7:58 AM EDT [facility] pO2, Arterial 75(L) >80 mmHg LAB HEMATOLOGY METHOD 10/14/2024 7:58 AM EDT [facility] SO2, Measured, Arterial 96 94 - 98 % LAB HEMATOLOGY METHOD 10/14/2024 7:58 AM EDT [facility] Base Excess, Arterial -7.8(L) -2.0 - 3.0 mmol/L LAB HEMATOLOGY METHOD 10/14/2024 7:58 AM EDT [facility] Bicarbonate, Calculated, Arterial 18(L) 22 - 26 mmol/L LAB HEMATOLOGY METHOD 10/14/2024 7:58 AM EDT [facility] Hematocrit, Whole Blood 24.5(L) 34.0 - 45.0 % LAB HEMATOLOGY METHOD 10/14/2024 7:58 AM EDT [facility] Sodium, Whole Blood 142 136 - 145 mmol/L LAB HEMATOLOGY METHOD 10/14/2024 7:58 AM EDT [facility] Potassium, Whole Blood 3.9 3.6 - 4.9 mmol/L LAB HEMATOLOGY METHOD 10/14/2024 7:58 AM EDT [facility] Chloride, Whole Blood 114(H) 97 - 107 mmol/L LAB HEMATOLOGY METHOD 10/14/2024 7:58 AM EDT [facility] Glucose, Whole Blood 100(H) 74 - 99 mg/dL LAB HEMATOLOGY METHOD 10/14/2024 7:58 AM EDT [facility] Ionized Calcium, Whole Blood 4.5(L) 4.6 - 5.1 mg/dL LAB HEMATOLOGY METHOD 10/14/2024 7:58 AM EDT [facility] Lactate, Arterial, Whole Blood 0.7 0.5 - 1.6 mmol/L LAB HEMATOLOGY METHOD 10/14/2024 7:58 AM EDT [facility] Blood Arterial blood specimen / Unknown Arterial Puncture / Unknown 10/14/2024 7:52 AM EDT 10/14/2024 7:55 AM EDT us Aidan Harrison MD LAB BLOOD ORDERABLES Final Res ult Performing Organization Address City/[facility]/[place] [address] * (ABNORMAL) BETA HYDROXYBUTYRIC ACID (10/14/2024 6:25 AM EDT) Beta-Hydroxybu tyric Acid, Plasma 1.36(H) <=0.27 mmol/L 10/14/2024 7:30 AM EDT [facility] Blood Venous blood specimen / Unknown Venipuncture / Unknown 10/14/2024 6:25 AM EDT 10/14/2024 6:33 AM EDT us Aidan Harrison MD LAB BLOOD ORDERABLES Final Res ult Performing Organization Address City/[facility]/[place] [address] * TSH (10/14/2024 6:25 AM EDT) Thyroid Stimulating Hormone, Plasma 2.89 0.40 - 4.20 uIU/mL 10/14/2024 2:24 PM EDT [facility] Blood Venous blood specimen / Unknown Venipuncture / Unknown 10/14/2024 6:25 AM EDT 10/14/2024 6:33 AM EDT us Aidan Harrison MD LAB BLOOD ORDERABLES Final Res ult Performing Organization Address City/[facility]/[place] [address] * T4, free (10/14/2024 6:25 AM EDT) Free T4, Plasma 1.6 0.8 - 1.7 ng/dL 10/14/2024 2:24 PM EDT [facility] Blood Venous blood specimen / Unknown Venipuncture / Unknown 10/14/2024 6:25 AM EDT 10/14/2024 6:33 AM EDT us Aidan Harrison MD LAB BLOOD ORDERABLES Final Res ult Performing Organization Address [facility] Co de Phone Number [facility] [address] [place] [address] * Ionized calcium, serum (10/14/2024 12:22 AM EDT) Ionized Calcium, Serum 4.8 4.6 - 5.3 mg/dL LAB HEMATOLOGY METHOD 10/14/2024 12:56 AM EDT [facility] Blood Venous blood specimen / Unknown Venipuncture / Unknown 10/14/2024 12:22 AM EDT 10/14/2024 12:34 AM EDT us Kasey Win MD LAB BLOOD ORDERABLES Final Res ult Performing Organization Address [facility] Co de Phone Number [facility] [address] [place] [address] * XR Hand Right 3+ Views (10/13/2024 [...] written report. Preliminary report signed by Glen Pitno MD on 10/13/2024 7:00 PM By electronically [...] 38(H) <14 ng/L 10/13/2024 10:18 AM EDT [facility] Troponin Delta 2 <10 ng/L 10/13/2024 10:18 AM EDT [facility] Troponin Delta Interpretation Not Significant 10/13/2024 10:18 AM EDT [facility] Comment:Not Significant. No acute change in troponin observed between the baseline and 2 hour samples. Blood Arterial blood specimen / Unknown Arterial Line / Unknown 10/13/2024 9:40 AM EDT 10/13/2024 9:50 AM EDT us Cat Jamison MD LAB BLOOD ORDERABLES Final Result [facility] [address] [place] [address] * MS INSERT NON-TUNNEL CV CATH, HC INSERT NON-TUNNEL [...] were discussed: yes Alternatives discussed: No treatment [place] protocol: Procedure explained and questions answered to [...] IN CLINIC/BEDSIDE ORDERABLES F inal Result * MS INSERT CATH,ART,PERCUT,SHORTTERM, HC INSERT CATH,ART,PERCUT,SHORTTERM (10/13/2024 9:09 AM EDT) Narrative Aidan Harrison MD - 10/13/2024 9:09 AM EDT Aidan Harrison MD 10/13/2024 3:36 PM Arterial line Performed by: Erickson Gr DO Authorized by: Aidan Harrison MD Consent: Consent obtained: Emergent situation Consent given by: Patient Risks, benefits, and alternatives were discussed: yes Risks discussed: Bleeding, infection, ischemia, repeat procedure and pain [place] protocol: Procedure explained and questions answered to [...] is no recent study available for direct [id number] comparison. Left Ventricle The left ventricle is [...] is no recent study available for direct [id number] comparison. us Cat Jamison MD CV ECHO PROCEDURES Final R esult * Lactate, venous (10/13/2024 6:35 AM EDT) Lactate, Venous, Whole Blood 0.8 0.5 - 2.2 mmol/L LAB HEMATOLOGY METHOD 10/13/2024 6:40 AM EDT [facility] Blood Venous blood specimen / Unknown Venipuncture / Unknown 10/13/2024 6:35 AM EDT 10/13/2024 6:39 AM EDT us Kasey Win MD LAB BLOOD ORDERABLES Final Res ult Performing Organization Address City/[facility]/ZIP Co de Phone Number [facility] [address] [place] [address] * Blood Culture (Aerobic/Anaerobet Set) (10/13/2024 6:35 AM EDT) Culture No growth at day 5 LANA 10/18/2024 8:[address] [facility] Blood Venous blood specimen / Unknown Venipuncture / Unknown 10/13/2024 6:35 AM EDT 10/13/2024 7:18 AM EDT us Kasey Win MD LAB MICROBIOLOGY - GENERAL ORD ERABLES Final Result Performing Organization Address City/[facility] [place] [address] * Urine Rao Panel (10/13/2024 6:08 AM EDT) Extra Reflex urine culture not indicated 10/13/2024 8:[address] [facility] Urine Urine specimen obtained by clean catch procedure / Unknown Non-blood Collection / Unknown 10/13/2024 6:08 AM EDT 10/13/2024 6:33 AM EDT us Kasey Win MD LAB URINE ORDERABLES Final Res ult Performing Organization Address City/[facility]/[place] [address] * Urinalysis Microscopic Examination (10/13/2024 6:08 AM EDT) Urine Urine specimen obtained by clean catch procedure / Unknown Non-blood Collection / Unknown 10/13/2024 6:08 AM EDT 10/13/2024 6:21 AM EDT us Kasey Win MD LAB URINE ORDERABLES Final Res ult [facility] [address] [place] [address] * (ABNORMAL) Urinalysis with reflex microscopic (Culture NOT Included) (10/13/2024 6:08 AM EDT) Only the most recent of2 resultswithin the time period is included. Color, Urine Yellow LAB URINALYSIS - AUTOMATED METHOD 10/13/2024 7:07 AM EDT [facility] Clarity, Urine Clear LAB URINALYSIS - AUTOMATED METHOD 10/13/2024 7:07 AM EDT [facility] Spec [place], Urine 1.016 1.005 - 1.030 LAB URINALYSIS - AUTOMATED METHOD 10/13/2024 7:07 AM EDT [facility] pH, Urine 6.5 5.0 - 8.0 LAB URINALYSIS - AUTOMATED METHOD 10/13/2024 7:07 AM EDT [facility] Protein, Urine Trace(A) Negative mg/dL LAB URINALYSIS - AUTOMATED METHOD 10/13/2024 7:07 AM EDT [facility] Glucose, Urine Negative Negative mg/dL LAB URINALYSIS - AUTOMATED METHOD 10/13/2024 7:07 AM EDT [facility] Ketones, Urine Negative Negative mg/dL LAB URINALYSIS - AUTOMATED METHOD 10/13/2024 7:07 AM EDT [facility] Blood, Urine Negative Negative LAB URINALYSIS - AUTOMATED METHOD 10/13/2024 7:07 AM EDT [facility] Bilirubin, Urine Negative Negative LAB URINALYSIS - AUTOMATED METHOD 10/13/2024 7:07 AM EDT [facility] Urobilinogen, Urine 0.2 0.2 to 1.0 mg/dL LAB URINALYSIS - AUTOMATED METHOD 10/13/2024 7:07 AM EDT [facility] Leukocytes, Urine Small(A) Negative LAB URINALYSIS - AUTOMATED METHOD 10/13/2024 7:07 AM EDT [facility] Nitrite, Urine Negative Negative LAB URINALYSIS - AUTOMATED METHOD 10/13/2024 7:07 AM EDT [facility] RBC, Urine <1 0 to 3 /HPF LAB URINALYSIS - AUTOMATED METHOD 10/13/2024 7:07 AM EDT [facility] WBC, Urine 6 - 10(A) 0 to 5 /HPF LAB URINALYSIS - AUTOMATED METHOD 10/13/2024 7:07 AM EDT [facility] Squamous Epithelial Cells 0 - 2 0 to 5 /HPF LAB URINALYSIS - AUTOMATED METHOD 10/13/2024 7:07 AM EDT [facility] Hyaline Casts 0 - 2 0 to 5 /LPF LAB URINALYSIS - AUTOMATED METHOD 10/13/2024 7:07 AM EDT [facility] Bacteria, Urine Negative Negative LAB URINALYSIS - AUTOMATED METHOD 10/13/2024 7:07 AM EDT [facility] Urine Urine specimen obtained by clean catch procedure / Unknown Non-blood Collection / Unknown 10/13/2024 6:08 AM EDT 10/13/2024 6:21 AM EDT us Kasey Win MD LAB URINE ORDERABLES Final Res ult Performing Organization Address City/State/[facility] Co de Phone Number [facility] [address] [place] [address] * Viv auris Surveillance by PCR (10/13/2024 6:05 AM EDT) Viv auris PCR Result Not Detected Not Detected 10/13/2024 12:18 PM EDT [facility] Swab (Axilla and Groin) Non-blood Collection / Unknown 10/13/2024 6:05 AM EDT 10/13/2024 6:31 AM EDT Narrative [facility] - 10/13/2024 12:18 PM EDT This PCR assay was developed and its performance characteristics determined by [facility] as appropriate for clinical purposes. This assay has not been cleared or approved by the FDA, but is performed in a CLIA regulated laboratory that is qualified to perform high-complexity testing. us Kasey Win MD LAB MICROBIOLOGY - GENERAL ORD ERABLES Final Result [facility] [address] [place] [address] * (ABNORMAL) Multi Drug Resistance Test (10/13/2024 6:05 AM EDT) Culture Klebsiella pneumoniae ESBL(AA) LANA 10/17/2024 11:07 AM EDT [facility] Comment: The organism value for this result has been updated. These results have been appended to the previously preliminary verified report. The organism value for this result has been updated. These results have been appended to the previously preliminary verified report. Swab (Nares and Rachel Rectal) Non-blood Collection / Unknown 10/13/2024 6:05 AM EDT 10/13/2024 6:31 AM EDT Narrative [facility] - 10/17/2024 11:07 AM EDT This test was developed and its performance characteristics determined by the [facility]. Although the media is FDA-approved, it is not FDA-approved for all specimen types submitted. The FDA has determined that such clearance or approval is not necessary. This test is used for surveillance purposes. It should not be regarded as investigational or for research. The [facility] is certified under [...] ug/ml: Susceptible Klebsiella pneumoniae ESBL Trimethoprim/Sulfamethoxazo le LAAN >2/38 ug/ml: Resistant Kasey Win MD LAB MICROBIOLOGY - GENERAL ORD ERABLES Final Result Performing Organization Address [facility] Co de Phone Number [facility] [address] [place] [address] * Methicillin Resistant Staphylococcus aureus (MRSA) by PCR (10/13/2024 6:05 AM EDT) Methicillin Resistant Staphylococcus aureus (MRSA) by PCR Not Detected Not Detected 10/13/2024 9:07 AM EDT [facility] Swab Both anterior nares / Unknown Non-blood Collection / Unknown 10/13/2024 6:05 AM EDT 10/13/2024 7:18 AM EDT Narrative [facility] - 10/13/2024 9:07 AM [...] ORD ERABLES Final Result Performing Organization Address [facility] Co de Phone Number [facility] [address] [place] [address] * (ABNORMAL) Troponin T, High Sensitivity, 0 Hour Plasma, Reflex to 2 Hour (10/13/2024 5:18 AM EDT) Troponin T, High Sensitivity, 0 Hour 36(H) <14 ng/L 10/13/2024 6:21 AM EDT [facility] Blood Venous blood specimen / Unknown Venipuncture / Unknown 10/13/2024 5:18 AM EDT 10/13/2024 5:24 AM EDT Cat Jamison MD LAB BLOOD ORDERABLES Final Result [facility] [address] [place] [address] * (ABNORMAL) N-Terminal Probnp (10/13/2024 5:18 AM EDT) N-Terminal, PROBNP, Plasma 1,081(H) 0 - 899 pg/mL 10/13/2024 6:21 AM EDT [facility] Blood Venous blood specimen / Unknown Venipuncture / Unknown 10/13/2024 5:18 AM EDT 10/13/2024 5:24 AM EDT us Kasey Win MD LAB BLOOD ORDERABLES Final Res ult [facility] [address] [place] [address] * CT Bony Pelvis (10/13/2024 3:57 AM [...] 10/13/2024 4:03 AM Final report signed by Randlal Johnston MD on 10/13/2024 4:55 AM us Cat Jamison MD IMG CT PROCEDURES Final Re sult * (ABNORMAL) Hemoglobin A1c (10/13/2024 3:44 AM EDT) Hemoglobin A1c 6.6(H) <5.7 % 10/13/2024 12:54 PM EDT [facility] Blood Venous blood specimen / Unknown Venipuncture / Unknown 10/13/2024 3:44 AM EDT 10/13/2024 3:46 AM EDT Narrative [facility] - 10/13/2024 12:54 PM EDT HA1C Interpretive Data: Diagnosis of Diabetes: Diabetic > or = 6.5% Pre-diabetic 5.7 to 6.4% Non-diabetic < or = 5.6% Glycemic Targets for Type I and Type II Diabetics: Non- Adults <7.0% Adults <6.0% Children and Adolescents <7.5% Source: [place] [employer]. Standards of medical care in diabetes,2017. Diabetes Care.2017:40 (suppl 1):S1-S135. us Kasey Win MD LAB BLOOD ORDERABLES Final Res ult [facility] [address] [place] [address] * (ABNORMAL) Blood gas, venous (10/13/2024 3:44 AM EDT) pH, Venous 7.29(L) 7.32 - 7.43 LAB HEMATOLOGY METHOD 10/13/2024 3:55 AM EDT [facility] pCO2, Venous 37 37 - 52 mmHg LAB HEMATOLOGY METHOD 10/13/2024 3:55 AM EDT [facility] pO2, Venous 26 25 - 40 mmHg LAB HEMATOLOGY METHOD 10/13/2024 3:55 AM EDT [facility] SO2, Measured, Venous 44(L) 65 - 80 % LAB HEMATOLOGY METHOD 10/13/2024 3:55 AM EDT [facility] Base Excess, Venous -8.5(L) -2.0 - 3.0 mmol/L LAB HEMATOLOGY METHOD 10/13/2024 3:55 AM EDT [facility] Bicarbonate, Calculated, Venous 17(L) 22 - 26 mmol/L LAB HEMATOLOGY METHOD 10/13/2024 3:55 AM EDT [facility] Hematocrit, Whole Blood 29.1(L) 34.0 - 45.0 % LAB HEMATOLOGY METHOD 10/13/2024 3:55 AM EDT [facility] Sodium, Whole Blood 134(L) 136 - 145 mmol/L LAB HEMATOLOGY METHOD 10/13/2024 3:55 AM EDT [facility] Potassium, Whole Blood 4.3 3.6 - 4.9 mmol/L LAB HEMATOLOGY METHOD 10/13/2024 3:55 AM EDT [facility] Chloride, Whole Blood 107 97 - 107 mmol/L LAB HEMATOLOGY METHOD 10/13/2024 3:55 AM EDT [facility] Glucose, Whole Blood 112(H) 74 - 99 mg/dL LAB HEMATOLOGY METHOD 10/13/2024 3:55 AM EDT [facility] Lactate, Venous, Whole Blood 1.2 0.5 - 2.2 mmol/L LAB HEMATOLOGY METHOD 10/13/2024 3:55 AM EDT [facility] Ionized Calcium, Whole Blood 4.8 4.6 - 5.1 mg/dL LAB HEMATOLOGY METHOD 10/13/2024 3:55 AM EDT [facility] Blood Venous blood specimen / Unknown Venipuncture / Unknown 10/13/2024 3:44 AM EDT 10/13/2024 3:53 AM EDT us Derik Renae MD LAB BLOOD ORDERABLES Final Resu lt [facility] [address] [place] [address] * Drug Abuse Screen, Urine (10/12/2024 11:56 PM EDT) Amphetamine Screen Urine Negative Cutoff: 500 ng/mL 10/13/2024 12:45 AM EDT [facility] Benzodiazepines Screen Urine Negative Cutoff: 200 ng/mL 10/13/2024 12:45 AM EDT [facility] Cannabinoid Screen Urine Negative Cutoff: 50 ng/mL 10/13/2024 12:45 AM EDT [facility] Cocaine Screen Urine Negative Cutoff: 300 ng/mL 10/13/2024 12:45 AM EDT [facility] Barbiturate Screen Urine Negative Cutoff: 200 ng/mL 10/13/2024 12:45 AM EDT [facility] Opiate Screen Urine Negative Cutoff: 300 ng/mL 10/13/2024 12:45 AM EDT [facility] Methadone Screen Urine Negative Cutoff: 300 ng/mL 10/13/2024 12:45 AM EDT [facility] Buprenorphine Screen Urine Negative Cutoff: 10 ng/mL 10/13/2024 12:45 AM EDT [facility] Fentanyl Screen Urine Negative Cutoff: 1 ng/mL 10/13/2024 12:45 AM EDT [facility] Oxycodone Screen Urine Negative Cutoff: 100 ng/mL 10/13/2024 12:45 AM EDT [facility] Urine Urine specimen obtained by clean catch procedure / Unknown Non-blood Collection / Unknown 10/12/2024 11:56 PM EDT 10/13/2024 12:13 AM EDT us Cat Jamison MD LAB URINE ORDERABLES Final Result [facility] [address] [place] [address] * (ABNORMAL) Anti Xa Level Low Molecular Weight (10/12/2024 11:56 PM EDT) Anti Xa Level Low Molecular Weight Heparin >2.00(HH) <2.00 IU/mL 10/13/2024 1:02 AM EDT [facility] Blood Venous blood specimen / Unknown Venipuncture / Unknown 10/12/2024 11:56 PM EDT 10/13/2024 12:01 AM EDT Narrative [facility] - 10/13/2024 1:02 AM EDT Therapeutic Range: LMWH enoxaparin 1mg/kg/dose, 12hrs - peak (3-5 hours after dose): 0.5 - 1.0 IU/mL LMWH enoxaparin 1.5mg/kg/dose, 24hrs - peak (3-5 hours after dose): 1.0 - 2.0 IU/mL LMWH enoxaparin prophylaxis: Not established us Derik Renae MD LAB BLOOD ORDERABLES Final Resu lt Performing Organization Address City/[facility]/ZIP Co de Phone Number [facility] [address] [place] [address] * Red Blood Cell Antibody with Antigen Notification (10/12/2024 11:55 PM EDT) Notification, Gabriela Blood Cell Antibody with Antigen During your recent admission to the [facility], laboratory testing performed in the blood [...] do not hesitate to call me at [phone]. No defined reference value 10/14/2024 4:24 PM EDT BLOOD BANK Pathologist Signature, Red Blood Cell Antibody with Antigen Reviewed by: Srikanth Watson MD 10/14/2024 4:24 PM EDT BLOOD BANK Blood Venous blood specimen / Unknown Venipuncture / Unknown 10/12/2024 11:55 PM EDT 10/13/2024 12:04 AM EDT us Aidan Harrison MD LAB BLOOD BANK TEST ORDERABLES Final Result Performing Organization Address [facility] Co de Phone Number BLOOD BANK [address] [place] [address], * ED HIV 1/2 Antibody/Antigen Screen w/Reflex to HIV 1/2 Differentiation (10/12/2024 11:55 PM EDT) HIV 1 & 2 Antibody/Antigen Screen Non Reactive Non Reactive 10/13/2024 12:58 AM EDT [facility] Comment:Screening for HIV 1 & 2 antibodies, and P24 antigen is NONREACTIVE. No confirmatory testing is required. Blood Venous blood specimen / Unknown Venipuncture / Unknown 10/12/2024 11:55 PM EDT 10/13/2024 12:12 AM EDT us Cat Jamison MD LAB BLOOD ORDERABLES Final Result Performing Organization Address City/[facility]/ZIP Co de Phone Number [facility] [address] [place] [address] * (ABNORMAL) Trauma shock panel blood gas (10/12/2024 11:55 PM EDT) pH, Venous 7.23(LL) 7.32 - 7.43 LAB HEMATOLOGY METHOD 10/13/2024 12:06 AM EDT [facility] Bicarbonate, Calculated, Venous 17(L) 22 - 26 mmol/L LAB HEMATOLOGY METHOD 10/13/2024 12:06 AM EDT [facility] Base Excess, Venous -10.0(L) -2.0 - 3.0 mmol/L LAB HEMATOLOGY METHOD 10/13/2024 12:06 AM EDT [facility] Lactate, Venous, Whole Blood 1.8 0.5 - 2.2 mmol/L LAB HEMATOLOGY METHOD 10/13/2024 12:06 AM EDT [facility] Blood Venous blood specimen / Unknown Venipuncture / Unknown 10/12/2024 11:55 PM EDT 10/13/2024 12:02 AM EDT us Cat Jamison MD LAB BLOOD ORDERABLES Final Result Performing Organization Address City/[facility]/ZIP Co de Phone Number [facility] [address] [place] [address] * Ethyl Alcohol Plasma (10/12/2024 11:55 PM EDT) Ethanol Plasma <10 <10 mg/dL 10/13/2024 12:55 AM EDT [facility] Blood Venous blood specimen / Unknown Venipuncture / Unknown 10/12/2024 11:55 PM EDT 10/13/2024 12:12 AM EDT Narrative [facility] - 10/13/2024 12:55 AM EDT Enzymatic Assay: Performed on Ngh[employer]. us Cat Jamison MD LAB BLOOD ORDERABLES Final Result [facility] [address] [place] [address] * Hepatitis C Antibody - ED (10/12/2024 11:55 PM EDT) [facility] Hepatitis C Antibody Negative Negative 10/13/2024 12:[address] [facility] Blood Venous blood specimen / Unknown Venipuncture / Unknown 10/12/2024 11:55 PM EDT 10/13/2024 12:12 AM EDT Cat Jamison MD LAB BLOOD ORDERABLES Final Result Performing Organization Address [facility]/ZIP Co de Phone Number [facility] [address] [place] [address] * (ABNORMAL) TEG Global Hemostasis with Lysis (10/12/2024 11:55 PM EDT) [facility] R, Lysis 9.3(H) 4.6 - 9.1 min 10/13/2024 1:21 AM EDT [facility] MA, Rapid, Lysis 69.9 52.0 - 70.0 mm 10/13/2024 1:[address] [facility] MA, Fibrinogen, Lysis 32.5(H) 15.0 - 32.0 mm 10/13/2024 1:[address] [facility] LY30 0.8 0.0 - 2.6 % 10/13/2024 1:[address] [facility] Blood Venous blood specimen / Unknown Venipuncture / Unknown 10/12/2024 11:55 PM EDT 10/13/2024 12:17 AM EDT Cat Jamison MD LAB BLOOD ORDERABLES Final Result Performing Organization Address City/[facility]/ZIP Co de Phone Number [facility] [address] [place] [address] * (ABNORMAL) APTT (PTT) (10/12/2024 11:55 PM EDT) [facility] aPTT 36(H) 25 - 35 sec 10/13/2024 12:15 AM EDT [facility] Blood Venous blood specimen / Unknown Venipuncture / Unknown 10/12/2024 11:55 PM EDT 10/13/2024 12:01 AM EDT Cat Jamison MD LAB BLOOD ORDERABLES Final Result Performing Organization Address City/[facility]/ZIP Co de Phone Number [facility] [address] [place] [address] * (ABNORMAL) PT-INR (10/12/2024 11:55 PM EDT) Prothrombin Time 20.2(H) 12.0 - 14.3 sec 10/13/2024 12:[address] [facility] INR 1.7(H) 0.9 - 1.1 10/13/2024 12:14 AM EDT [facility] Blood Venous blood specimen / Unknown Venipuncture / Unknown 10/12/2024 11:55 PM EDT 10/13/2024 12:01 AM EDT Narrative [facility] - 10/13/2024 12:14 AM [...] Jamison MD LAB BLOOD ORDERABLES Final Result [facility] [address] [place] [address] * Test Qualitative Plasma (10/12/2024 11:55 PM EDT) Test Negative Negative 10/13/2024 1:02 AM EDT [facility] Blood Venous blood specimen / Unknown Venipuncture / Unknown 10/12/2024 11:55 PM EDT 10/13/2024 12:12 AM EDT Narrative [facility] - 10/13/2024 1:02 AM EDT Reference Range: Males and non- females: Negative. us Cat Jamison MD LAB BLOOD ORDERABLES Final Result [facility] [address] [place] [address] * CT OUTSIDE IMAGES (10/12/2024 8:15 PM [...] Documents on File Type Date Recorded Patient Swing Ride Operator Expl anation Advance Directives and Livin g Will 10/14/2024 4:42 PM Advance Directives and Livin g Will 10/13/2024 6:35 AM * Full Code (Latest Code Status on File) Date Activated Date Inactivated Comments 10/13/2024 5:26 AM 10/30/2024 7:10 PM Question Answer Comments I have reviewed the capacity from the link above and, if needed, have updated to appropriate status: Yes Care Teams Motor Assembler Relationship Specialty Start Date End Date Cosme Davis MD [address] [place] [address] PCP - General 06/24/20
--- OUTSIDE RECORDS SUMMARY | 2024-12-29 06:06 | XMS_ITS | Encounter Summary ---
Author Organization [employer] ([place], [place], [place], [place], [place]) Address [address] [place] [address] Care Team Providers Care Other Sports Coach Or Instructor Name Role Phone Unavailable Primary Care Provider Unavailabl e Encounter Details Date Type Department Care Team (Late st Contact Info) Description 03/23/2018 Transcribed Document [facility] [place] [address] [place] [address] ProviderZion MD [address] [place], [place] [id number] Social History Tobacco Use Types Packs/Day Years Used Date Smoking Tobacco: Never Assessed Comments Unknown Sex and Gender Information Value Date Recorded Sex Assigned at Not on file Legal Sex Female 4:39 PM CDT Gender Identity Not on file Sexual Orientation Not on file documented as of this encounter Miscellaneous Notes * Cerner Conversion Note - Zion ProviderMD - 03/23/2018 7:32 PM WAREHOUSE DISTRIBUTION SPECIALIST DATE OF ADMISSION: 03/23/2018 PRIMARY CARE PHYSICIAN: [...] has been evaluated there and transferred to [facility]. Patient was at [facility], came in, laying in bed, mild [...]
--- OUTSIDE RECORDS SUMMARY | 2024-12-29 06:06 | XMS_ITS | Encounter Summary ---
Author Organization [employer] ([place], [place], [place], [place], [place]) Address [address] [place] [address] Care Team Providers Care Automotive Alignment Specialist Name Role Phone Unavailable Primary Care Provider Unavailabl e Encounter Details Date Type Department Care Team (Late st Contact Info) Description 03/23/2018 Transcribed Document [facility] [place] Family Medicine [address] [place] [address] ProviderZion MD [address] [place] [id number] Social History Tobacco Use Types Packs/Day Years Used Date Smoking Tobacco: Never Assessed Comments Unknown Sex and Gender Information Value Date Recorded Sex Assigned at Not on file Legal Sex Female 4:39 PM CDT Gender Identity Not on file Sexual Orientation Not on file documented as of this encounter Miscellaneous Notes * Cerner Conversion Note - Historical ProviderMD - 03/23/2018 5:54 PM OBSTETRICS GYN Care Management Assessment/Plan Entered On: 03/26/2018 17:47 [...] yr old W F transferred here from [facility] w/ bradycardia, positive blood cultures/strep B sepsis bactremia. PMH includes: bladder cancer, CAD s/p CABG, MVR, PPM plcmt (for which pt has had no F/U), pancreatitis, , COPD, DM, HTN, HLD, depression and anxiety. Pt underwent BROCK today due to concern for possible infected pacemaker (report not in yet). She is currently on 2gm IV rocephin, which [facility] says she will need until 04/20/18. [facility], claims she is indep w/ all activities. D/C plan pending outcome of possible pacer removal, may well be good [facility] candidate. She denies any needs now, CM will cont to follow. DEEPA GALDAMEZ, Meat Trimmer - 03/26/2018 17:36 EST documented in this encounter Plan of Treatment Not on file documented as of this encounter Visit Diagnoses Not on filedocumented in this encounter
--- OUTSIDE RECORDS SUMMARY | 2024-12-29 06:07 | XMS_ITS | Encounter Summary ---
Author Organization [employer] ([place], [place], [place], [place], [place]) Address [address] [place] [address] Care Team Providers Care Buncher Hand Name Role Phone Unavailable Primary Care Provider Unavailabl e Encounter Details Date Type Department Care Team (Late st Contact Info) Description 03/23/2018 Transcribed Document [facility] [address] [place] [address] ProviderZion MD [address] [place], [place] [id number] Social History Tobacco Use Types Packs/Day Years Used Date Smoking Tobacco: Never Assessed Comments Unknown Sex and Gender Information Value Date Recorded Sex Assigned at Not on file Legal Sex Female 4:39 PM CDT Gender Identity Not on file Sexual Orientation Not on file documented as of this encounter Miscellaneous Notes * Cerner Conversion Note - Historical ProviderMD - 03/23/2018 9:00 AM BROACH TROUBLE SHOOTER Consult Phone Call Documentation Entered On: 03/23/2018 [...]
--- OUTSIDE RECORDS SUMMARY | 2024-12-29 06:07 | XMS_ITS | Encounter Summary ---
Author Organization [employer] ([place], [place], [place], [place], [place]) Address [address] [place] [address] Care Team Providers Care Heatset Winder Operator Name Role Phone Unavailable Primary Care Provider Unavailabl e Encounter Details Date Type Department Care Team (Late st Contact Info) Description 03/23/2018 Transcribed Document [facility] [place] Family Medicine [address] [place] [address] ProviderZion MD [address] [place] [address] Social History Tobacco Use [...] - Historical ProviderMD - 03/23/2018 5:28 PM LABOR RELATIONS ANALYST Admission History, Adult Entered On: 03/23/2018 17:38 [...] #2 Relationship : sister Primary Language : Iraqi Preferred Communication Mode : Verbal Communication Barrier [...] Scale Risk Level : 25-45 Medium Risk [place] Interventions : Adequate lighting, Assistive devices [...] Source : Stated Height Entry Format : [place] Height, Feet : 5 ft(Converted to: 152 [...] Body Mass Index : 31.4 kg/m2 (HI) [place] Body Weight : 47 kg Demetri Arrington [...] signed by Jorge Alberto, [facility] Conversion E Commerce Marketing Analyst Cerner at 05/29/2022 8:46 PM CDT documented in this encounter Plan of Treatment Not on file documented as of this encounter Visit Diagnoses Not on filedocumented in this encounter
--- OUTSIDE RECORDS SUMMARY | 2024-12-29 06:08 | XMS_ITS | Encounter Summary ---
Author Organization [employer] ([place], [place], [place], [place], [place]) Address [address] [place] [address] Care Team Providers Care Ship Officer Name Role Phone Unavailable Primary Care Provider Unavailabl e Encounter Details Date Type Department Care Team (Late st Contact Info) Description 03/29/2018 Transcribed Document [facility] [place] Family Medicine [address] [place] [address] ProviderZion MD [address] [place] [address] Social History Tobacco Use Types [...] - Zion ProviderMD - 03/29/2018 3:54 PM VOICE OVER ANNOUNCER Patient Education Materials Follows:Disease Endocarditis Endocarditis is [...] these instructions at home: Medicines ??? Take [id number] and prescription medicines only as told by [...] 01/28/2006 Document Revised: 11/09/2016 Document Reviewed: 11/09/2016 [employer] Interactive Patient Education ? 2017 [employer] documented in this encounter Plan of Treatment Not on file documented as of this encounter Visit Diagnoses Not on filedocumented in this encounter
--- OUTSIDE RECORDS SUMMARY | 2024-12-29 06:08 | XMS_ITS | Encounter Summary ---
Author Organization [employer] ([place], [place], [place], [place], [place]) Address [address] [place] [address] Care Team Providers Care Inspector Repairer Name Role Phone Unavailable Primary Care Provider Unavailabl e Encounter Details Date Type Department Care Team (Late st Contact Info) Description 03/23/2018 Transcribed Document [facility] [place] Family Medicine [address] [place] [address] ProviderZion MD [address] [place], [place] [phone] Social History Tobacco Use Types Packs/Day Years Used Date Smoking Tobacco: Never Assessed Comments Unknown Sex and Gender Information Value Date Recorded Sex Assigned at Not on file Legal Sex Female 4:39 PM CDT Gender Identity Not on file Sexual Orientation Not on file documented as of this encounter Miscellaneous Notes * Cerner Conversion Note - Zion ProviderMD - 03/23/2018 6:37 PM SMALL PRODUCTS ASSEMBLER Patient: ETHAN CRONIN Age: 57 years Sex: Female : 1960 Associated Diagnoses: None Author: Anastacia Roth, Pharm.D.-Resident HPI: 57 year old female transferred from [facility] due to bradycardia during infusion. Pt has hx of CAD, CABG/pacemaker 3 years ago, DM, HTN, and OR. Pt also has hx of bacteremia and was on antibitoics outpatient and pt cannot confirm what abx she was on. Pharmacist called [facility] and confirmed that pt did not [...] will continue to follow Jameson SummersD PGY-1 Bag Machine Operator [phone] documented in this encounter Plan of Treatment Not on file documented as of this encounter Visit Diagnoses Not on filedocumented in this encounter
--- OUTSIDE RECORDS SUMMARY | 2024-12-29 06:08 | XMS_ITS | Encounter Summary ---
Author Organization [employer] ([place], [place], [place], [place], [place]) Address [address] [place] [address] Care Team Providers Care Validation Analyst Name Role Phone Unavailable Primary Care Provider Unavailabl e Encounter Details Date Type Department Care Team (Late st Contact Info) Description 03/23/2018 Transcribed Document [facility] [place] [address] [place] [address] ProviderZion MD [address] [place] [address] Social History Tobacco Use Types [...] - Historical ProviderMD - 03/23/2018 5:16 PM MEMBERSHIP SALES MANAGER Event Note Entered On: 03/23/2018 17:17 EST Performed On: 03/23/2018 17:16 EST by Demetri Arrington, Rn Event Note Event Date/Time : 03/23/2018 17:16 EST Description of Event : patient to rm # [id number] Kristen Nelson notified Demetri Arrington, Rn - 03/23/2018 17:16 EST Electronically signed by Jorge Alberto [facility] Conversion Fast Food Attendant Cerner at 05/29/2022 8:41 PM CDT documented in this encounter Plan of Treatment Not on file documented as of this encounter Visit Diagnoses Not on filedocumented in this encounter
--- OUTSIDE RECORDS SUMMARY | 2024-12-29 06:09 | XMS_ITS | Encounter Summary ---
Author Organization [employer] ([place], [place], [place], [place], [place]) Address [address] [place] [address] Care Team Providers Care Surgical Assist Name Role Phone Unavailable Primary Care Provider Unavailabl e Encounter Details Date Type Department Care Team (Late st Contact Info) Description 05/07/2018 Transcribed Document [facility] [place] Family Medicine [address] [place] [address] ProviderZion MD [address] [place], [place] [id number] Social History Tobacco Use Types Packs/Day Years [...] 16:09 EDT Electronically signed by Jorge Alberto [facility] Conversion Line Construction Engineer Cerner at 05/29/2022 8:32 PM CDT documented in this encounter Plan of Treatment Not on file documented as of this encounter Visit Diagnoses Not on filedocumented in this encounter
--- OUTSIDE RECORDS SUMMARY | 2024-12-29 06:09 | XMS_ITS | Encounter Summary ---
Author Organization [employer] ([place], [place], [place], [place], [place]) Address [address] [place] [address] Care Team Providers Care Synthetic Filament Spinner Name Role Phone Unavailable Primary Care Provider Unavailabl e Encounter Details Date Type Department Care Team (Late st Contact Info) Description 05/07/2018 Transcribed Document [facility] [place] Family Medicine [address] [place] [address] ProviderZion MD [address] [place] [address] Social History Tobacco Use Types [...] you are awake and alert. ??? Take uvrk-kem-jrpmees and prescription medicines only as told by [...] 11/18/2013 Document Revised: 07/02/2016 Document Reviewed: 05/19/2016 [employer] Interactive Patient Education ? 2017 [employer] Radiology Transesophageal Echocardiogram Transesophageal echocardiography (BROCK) [...] 11/25/2009 Document Revised: 07/05/2016 Document Reviewed: 07/30/2013 [employer] Interactive Patient Education ? 2017 [employer] documented in this encounter Plan of Treatment Not on file documented as of this encounter Visit Diagnoses Not on filedocumented in this encounter
--- OUTSIDE RECORDS SUMMARY | 2024-12-29 06:09 | XMS_ITS | Encounter Summary ---
Author Organization [employer] ([place], [place], [place], [place], [place]) Address [address] [place] [address] Care Team Providers Care Frit Maker Name Role Phone Unavailable Primary Care Provider Unavailabl e Encounter Details Date Type Department Care Team (Late st Contact Info) Description 03/29/2018 Transcribed Document [facility] Radiology [address] [place] [address] [place] [address] [place] [address] Social History Tobacco Use Types Packs/Day [...] MD - 03/29/2018 1:22 PM EST Patient: ETAHN LOREDO Age: 57 years Sex: Female : [...] Rocephin: 2 Gram, 100 mL/Hr, IV Piggyback, [id number] Tylenol: 650 mg, Oral, Q4H, PRN: Other [...] 0 Refill(s) Rocephin: 2 Gram, IV Piggyback, [id number], 0 Refill(s) carvedilol 3.125 mg oral tablet: [...] At Bedtime Rocephin 2 Gram, IV Piggyback, [id number] , Medications (26) Active Scheduled: (14) aspirin EC 81 mg tab 81 mg 1 Tab, Oral, Daily carvedilol 3.125 mg tab 3.125 mg 1 Tab, Oral, Daily cefTRIAXone 2 Gram, IV Piggyback, [id number] citalopram 20 mg tab 20 mg 1 [...] - Coronary artery disease / SNOMED CT 9704163938 / Confirmed Cardiomyopathy / SNOMED CT 499490879 / Confirmed HLD - Hyperlipidemia / SNOMED CT 572612982 / Confirmed HTN - Hypertension / SNOMED CT 2543253429 / Confirmed, Active Problems (14) Anxiety Atrial [...] to rehab when bed available. Discussed with nurse outreach case manager. documented in this encounter Plan of Treatment Not on file documented as of this encounter Visit Diagnoses Not on filedocumented in this encounter
[2024-12-29] MEDS: TET/DIPHTH/PERT-ADULT 0.5ML SYRINGE 0.5 ML IM (06:10)
[2024-12-29] MEDS: OXYMETAZOLINE NASAL SPRAY 0.05% 15ML NS (06:10)
--- OUTSIDE RECORDS SUMMARY | 2024-12-29 06:10 | XMS_ITS | Encounter Summary ---
Author Organization [employer] ([place], [place], [place], [place], [place]) Address [address] [place] [address] Care Team Providers Care Certified Pharmacy Tech Name Role Phone Unavailable Primary Care Provider Unavailabl e Encounter Details Date Type Department Care Team (Late st Contact Info) Description 03/29/2018 Transcribed Document [facility] Family Medicine [address] [place] [address] ProviderZion MD [address] [place] [address] Social History Tobacco Use Types [...] - Zion ProviderMD - 03/29/2018 3:54 PM SUPERINTENDENT CONTAINER TERMINAL [address] [place] [address] Patient Copy Patient Information: Name: ETHAN CRONIN Current Date: 03/29/2018 15:54:26 : 1960 Patient Address: [address] [place] [id number] Patient Attending Physician: MELY WHITNEY MD Primary Care Provider: CRUZ, NOT LISTED Primary Care Provider Phone: Discharge Diagnosis: Endocarditis Weight on Admission: 165 lb, 14 oz Comment: Follow-up Instructions: With: Address: When: JOHN TSAI [address] [facility] [place] [address] Business (1) Within 1 month With: Address: When: SUJIT DUNBAR [address] [facility], [address] [place] [address] Business (1) Within 2 weeks With: Address: When: Follow up with primary care provider Within 1 to 2 weeks With: Address: When: AJAY KRYS 10:00 AM Comments: BROCK Check in at [facility] @ 10:00 NPO after midnight Discharge Instructions: Immunizations Documented During Stay: No Immunizations Found Discharge Summary Sent to: [facility] [phone] Special Instructions: Report: [facility] [phone] Heart Failure Discharge Instructions (if any): Stroke [...] these instructions at home: Medicines ??? Take eomt-ymk-sourugq and prescription medicines only as told by [...] 01/28/2006 Document Revised: 11/09/2016 Document Reviewed: 11/09/2016 [employer] Interactive Patient Education ? 2017 [employer] CIGARETTE SMOKING: The facts are clear, cigarette smoking will shorten your life. Smoking can cause many illnesses along the way. As a healthcare provider, we recommend that you stop smoking. Assistance with quitting is available by contacting 2-320-SLJJ-NOW. This is a free resource providing counseling, [...] Be sure to sign up for the Provade patient portal, which gives you 24/ access to your medical information ??? including these discharge instructions ??? using your computer, smartphone, or tablet. Just go to [employer] to get started. Questions? Call . [facility] would like to thank you for allowing us to assist you with your healthcare needs. GERTRUDE Mcconnell VERONICA G, (or door to door sales representative) have received the above patient education materials/instructions and have verbalized understanding: Patient Signature _ Date/Time Patient Top Precipitator Operator Signature (if needed) Date/Time Clinician/Hospital Top Precipitator Operator Signature (if needed) Date/Time documented in this encounter Plan of Treatment Not on file documented as of this encounter Visit Diagnoses Not on filedocumented in this encounter
--- OUTSIDE RECORDS SUMMARY | 2024-12-29 06:10 | XMS_ITS | Encounter Summary ---
Author Organization [employer] ([place], [place], [place], [place], [place]) Address [address] [place] [address] Care Team Providers Care Glass Products Inspector Name Role Phone Unavailable Primary Care Provider Unavailabl e Encounter Details Date Type Department Care Team (Late st Contact Info) Description 05/07/2018 Transcribed Document [facility] [place] [address] [place] [address] ProviderZion MD [address] [place] [address] Social History Tobacco Use Types [...] Source : Stated Height Entry Format : [place] Height, Feet : 5 ft(Converted to: 152 cm, 60 Inch) Height, Inches : 1 Inch(Converted to: 0 ft 1 Inch, 2.54 cm) Clinical Height : 154.94 cm Weight Source : Standing scale Weight Entry Format : [place] Clinical Dosing Weight : 74.09 kg Weight, Pounds : 163 lb Body Surface Area (BSA) : 1.73 m2 Body Mass Index : 30.9 kg/m2 (HI) [place] Body Weight : 47 kg GAYLA CASE [...] : daughter Emergency Contact #1 Relationship : [phone] Emergency Contact #2 : . Emergency Contact #2 Phone Number : . Emergency Contact #2 Relationship : . Primary Language : Burundian Preferred Communication Mode : Verbal Communication Barrier [...] Scale Risk Level : 25-45 Medium Risk Alva Fall Interventions : Adequate lighting, Assistive devices within reach, Personal items within reach, Reinforced to call for assistance before getting out of bed GAYLA CASE RN - 05/07/2018 11:33 EDT Valuables and Belongings Valuables and Belongings : Clothing Clothing : Common streetwear Clothing Disposition : Bedside, With family EVIEGAYLA RN - 05/07/2018 11:33 EDT Electronically signed by Jorge Alberto [facility] Conversion Body Component Engineer Cerner at 05/29/2022 8:46 PM CDT documented in this encounter Plan of Treatment Not on file documented as of this encounter Visit Diagnoses Not on filedocumented in this encounter
--- OUTSIDE RECORDS SUMMARY | 2024-12-29 06:10 | XMS_ITS | Encounter Summary ---
Author Organization [employer] ([place], [place], [place], [place], [place]) Address [address] [place] [address] Care Team Providers Care Studio Operations Engineer In Charge Name Role Phone Unavailable Primary Care Provider Unavailabl e Encounter Details Date Type Department Care Team (Late st Contact Info) Description 05/07/2018 Transcribed Document [facility] [place] [address] [place] [address] ProviderZion MD [address] [place] [address] Social History Tobacco Use Types [...]
--- OUTSIDE RECORDS SUMMARY | 2024-12-29 06:11 | XMS_ITS | Encounter Summary ---
Author Organization [employer] ([place], [place], [place], [place], [place]) Address [address] [place] [address] Care Team Providers Care Clinical Researcher Name Role Phone Unavailable Primary Care Provider Unavailabl e Encounter Details Date Type Department Care Team (Late st Contact Info) Description 03/29/2018 Transcribed Document [facility] Family Medicine [address] [place] [address] ProviderZion MD [address] [place], [place] [id number] Social History Tobacco Use Types Packs/Day Years Used Date Smoking Tobacco: Never Assessed Comments Unknown Sex and Gender Information Value Date Recorded Sex Assigned at Not on file Legal Sex Female 4:39 PM CDT Gender Identity Not on file Sexual Orientation Not on file documented as of this encounter Miscellaneous Notes * Cerner Conversion Note - Historical ProviderMD - 03/29/2018 1:20 PM COMPARISON SHOPPER Care Management Assessment/Plan Entered On: 03/29/2018 13:22 EST Performed On: 03/29/2018 13:20 EST by Odalys Bush Rn-Medical HistorianNetezza Developer Note Anticipated Discharge Date : 03/30/2018 14:00 EST Care Management Note : Confirmed with [facility] that patient can transfer today [phone]; [phone]. Spoke with patient's daughter Jazmine [phone] who [address] to transport[address] Dr. Hamilton advised and dishcarge pharmacy aware. Patient should be ready to transport by 15:00. Care Management Note Report : Ninoska Cuellar, Rn-Medical Historian Ed - 03/28/18 20:23:22 CM faxed orders to [facility] for IV abx f [phone] per orders. CM will need to call [facility] to notify them of final d/c plan per MD orders p [phone]. CM to follow for ongoing d/c planning/needs. Ninoska Cuellar, Rn-Medical Historian Ed - 03/28/18 18:12:15 CM recieved call from Gama at [facility] stating they can take pt at their facility, but not until Saturday, as they now have an agreement with [facility]. CM then spoke with Edie from [facility] and she again confirms they can accept pt at their facility tomorrow. CM updated pt and now pt is agreeable to go to [facility]. She also gave CM permission to speak with Jazmine joshi by phone p [phone]. CM spoke with Jazmine and she is agreeable with plan for [facility], stating its much closer to them, approx 30 min. Pt tells CM that her PCP, Dr. Davis had told her that she was not able to do IV abx from home. Discharge plan will be to go to [facility] in the am. CM updated Dr. Stauffer and he reports he will notify [facility] for tomorrow. CM will cont to follow for ongoing d/c planning/needs. Ninoska Cuellar, Rn-Medical Historian Ed - 03/28/18 16:01:02 [facility] Clem states home cost for Rocephin is $3.70/wk. She states they may be able to contract with SNF to provide abx at pt's cost. She asked CM to have SNF call Paulo at their office to see about arranging. CM called MADELYN Corona with [facility] and [facility]. Updated BS RNAva. CM will cont to follow. Ninoska Cuellar, Rn-Medical Historian Ed - 03/28/18 14:57:29 Called [facility] and spoke with Chiquita and updated her on IV abx needs. SHe will check cost and call CM back to see if bed offer is still on the table. CM left for Sheri with [facility] to update her, left requesting return phone call. CM updated pt and she appears discouraged that [facility] will not accept her as a pt. She tells CM that she is considering just going home. BLAKE also called Clem with [facility] to argueta abx at home. She states that [facility] may also be able to contract with facility to provide them with abx at their cost. CM faxed info on pt and abx to [facility] f [phone]. CM updated BS RN, Ava. CM will cont to follow. Ninoska Cuellar, Rn-Medical Historian Ed - 03/28/18 14:21:[address] Robert bradley and he tells CM that pt is ready for discharge from his standpoint and that ID has a plan in place for IV abx. PT does have a PICC in place. Recieved VM from [facility] with [facility] p [phone] stating they are interested in pt. CM went to BS to speak with pt to discuss bed offers. CM presented bed offers and pt tells CM that she really doesn't want to go to another facility. Pt tells CM that she only wants to go to [facility], as she has been there in the past. [facility] had not make bed offer at this time. BLAKE called and spoke with Gama in admissions at [facility] and she tells CM that per her DON, they do not believe they can meet pt's needs at this time. CM pressed for more information and Gama told CM that she would have DON call her. -CM then spoke with MADELYN Corona at [facility] and she states that pt appears too sick at this time to come to their facility. BLAKE provided her with verbal updates, as well as faxed updates f [phone]. She states they will reevaluate now, knowing [...] pt at this time due to the $0853-9087 IV rocephin cost through 05/04/[address] Diaz orders. Cm to follow for ongoing d/c planning/needs. Stew Porras, REGULO - 03/27/18 16:25:12 edie from [facility] (0 ex [phone]) called to make bed offer. bed offers will be presented to pt 03/28. [facility] [phone] Stew Porras, RN - 03/27/18 15:00:29 spoke to ID who states pt maybe ready for dc as early as 03/28. id and attending PA are recommending SNF. spoke with pt and her dtr, jazmine and informed them of suggestion from drs to dc to snf for iv abx. pt and dtr in agreement and referrlas made via [facility] to the following [place].... [place]. Stew Porras, REGULO - 03/27/18 10:34:34 RRS-43 + for BROCK CT consulted and per ID, infection must clear prior to any ant surgical intervention Currnelty on rocephin iv w/bld cx pending Documentation Status Complete : Yes Odalys Bush, Rn-Medical Historian - 03/29/2018 13:20 EST Electronically signed by Jorge Alberto [facility] Conversion Justice Court Judge Cerner at 05/29/2022 8:48 PM CDT documented in this encounter Plan of Treatment Not on file documented as of this encounter Visit Diagnoses Not on filedocumented in this encounter
--- OUTSIDE RECORDS SUMMARY | 2024-12-29 06:11 | XMS_ITS | Encounter Summary ---
Author Organization [employer] ([place], [place], [place], [place], [place]) Address [address] [place] [address] Care Team Providers Care Energy Advisor Name Role Phone Unavailable Primary Care Provider Unavailabl e Encounter Details Date Type Department Care Team (Late st Contact Info) Description 03/29/2018 Transcribed Document [facility] [place] Medicine [facility] [place] [address] ProviderZion MD [address] [place] [phone] Social History Tobacco Use Types Packs/Day Years Used Date Smoking Tobacco: Never Assessed Comments Unknown Sex and Gender Information Value Date Recorded Sex Assigned at Not on file Legal Sex Female 4:39 PM CDT Gender Identity Not on file Sexual Orientation Not on file documented as of this encounter Miscellaneous Notes * Cerner Conversion Note - Zion Alonso MD - 03/29/2018 8:09 AM LEAD PORTFOLIO MANAGER Patient: ETHAN CRONIN Age: 57 years Sex: Female : 1960 Associated Diagnoses: None Author: CARROLL HIGH MD-INF Basic Information CC: Sepsis bacteremia 03/19/18 4/4 bottles for Group b strep ([facility]), mitral prosthetic valve endocarditis History of Present Illness 57-year-old white female with history of bladder cancer, atrial flutter, pacemaker placement 2016, hypertension, DM2, COPD, pancreatitis, who recently had blood cultures obtained at [facility] on 03/19/18 for fever which were positive in 4 out of 4 bottles for group B Streptococcus. Patient was to start IV antibiotics but was found to have bradycardia and was admitted to [facility] on 03/23/17. I was consulted on 03/25/17. The patient had been started on vancomycin and Rocephin. Urine culture obtained at [facility] was positive for multiple bacteria [...] cefTRIAXone (Rocephin) - 2 Gram, IV Piggyback, [id number], infuse over 30 Minute(s), Routine Anticoagulant heparin [...] Normal strength, No tenderness. Integumentary: Warm, Dry, [place], No pallor, No rash, Left chest wall [...] of 4 blood culture bottles positive at [facility] (spoke to Maurice Spencer, at [facility]). BROCK consistent with mitral valve [...] Dr. Perez's service, cardiology, and Dr. Alan.. regional retail sales manager: Please arrange for outpatient IV antibiotics with Rocephin 2 g IV every 12 hours until 05/04/18. Follow CBC, CMP, CRP weekly while on IV antibiotics. Fax orders to [phone], and call [phone] with final arrangements. Arrange for follow-up with me in 2 weeks post discharge. documented in this encounter Plan of Treatment Not on file documented as of this encounter Visit Diagnoses Not on filedocumented in this encounter
--- OUTSIDE RECORDS SUMMARY | 2024-12-29 06:11 | XMS_ITS | Encounter Summary ---
Author Organization [employer] ([place], [place], [place], [place], [place]) Address [address] [place] [address] Care Team Providers Care Fruit Thinner Machine Operator Name Role Phone Unavailable Primary Care Provider Unavailabl e Encounter Details Date Type Department Care Team (Late st Contact Info) Description 03/29/2018 Transcribed Document [facility] [place] [facility] [place] [address] ProviderZion MD [address] [place] [phone] Social History Tobacco Use Types Packs/Day Years Used Date Smoking Tobacco: Never Assessed Comments Unknown Sex and Gender Information Value Date Recorded Sex Assigned at Not on file Legal Sex Female 4:39 PM CDT Gender Identity Not on file Sexual Orientation Not on file documented as of this encounter Miscellaneous Notes * Cerner Conversion Note - Zion ProviderMD - 03/29/2018 1:35 PM LEGAL ADMINISTRATIVE SECRETARY Patient: ETHAN LOREDO Age: 57 years Sex: [...] Rocephin: 2 Gram, 100 mL/Hr, IV Piggyback, [id number] Tylenol: 650 mg, Oral, Q4H, PRN: Other [...] 0 Refill(s) Rocephin: 2 Gram, IV Piggyback, [id number], 0 Refill(s) carvedilol 3.125 mg oral tablet: [...] At Bedtime Rocephin 2 Gram, IV Piggyback, [id number] , Medications (25) Active Scheduled: (13) aspirin EC 81 mg tab 81 mg 1 Tab, Oral, Daily carvedilol 3.125 mg tab 3.125 mg 1 Tab, Oral, Daily cefTRIAXone 2 Gram, IV Piggyback, [id number] citalopram 20 mg tab 20 mg 1 [...] - Coronary artery disease / SNOMED CT 7852424987 / Confirmed Cardiomyopathy / SNOMED CT 349278842 / Confirmed HLD - Hyperlipidemia / SNOMED CT 366917035 / Confirmed HTN - Hypertension / SNOMED CT 4226491612 / Confirmed Resolved: COPD - Chronic obstructive pulmonary disease / SNOMED CT 392779813, Active Problems (14) Anxiety Atrial flutter Bladder [...] 03/29/2018 06:25 Blood Urea Nitrogen 53 mg/dL PA 03/29/2018 06:25 Glucose Level 97 mg/dL 03/29/2018 06:25 Calcium Level 9.4 mg/dL 03/29/2018 06:25 Impression and Plan EP status ok. Inc bun/cr- dc lisinopril. On No diuretics documented in this encounter Plan of Treatment Not on file documented as of this encounter Visit Diagnoses Not on filedocumented in this encounter
--- OUTSIDE RECORDS SUMMARY | 2024-12-29 06:11 | XMS_ITS | Encounter Summary ---
Author Organization [employer] ([place], [place], [place], [place], [place]) Address [address] [place] [address] Care Team Providers Care Assessment Expert Name Role Phone Unavailable Primary Care Provider Unavailabl e Encounter Details Date Type Department Care Team (Late st Contact Info) Description 03/29/2018 Transcribed Document [facility] [place] [address] [place] [address] ProviderZion MD [address] [place] [address] Social History Tobacco Use Types [...] - Zion ProviderMD - 03/29/2018 11:59 PM HIP HOP ARTIST Patient: ETHAN CRONIN Age: 57 years Sex: Female : 1960 Associated Diagnoses: None Author: ANIKA SAUH MD Admission date: 03/23/2009 Discharge date: 03/29/2018 [...] At Bedtime Rocephin 2 Gram, IV Piggyback, [id number]...until 05/04/18 for 6 weeks ID recommendations: continue Rocephin 2 g IV every 12 hours to continue until 05/04/18 for 6 weeks. Then may suppress afterwards with penicillin VK 250 mg by mouth twice a day for life. Follow up: ======= Follow up with PCP in 1-2 wks Follow up with Cardiology in 2-4 wks BROCK in 4-[address] Alan at [facility]. follow up with ID in 2 weeks post discharge. follow up with CTS in 4 wks Disposition: ======== Rehab Discharge Summary: 57-year-old white female with history of bladder cancer, atrial flutter, pacemaker placement 2016, hypertension, DM2, COPD, pancreatitis, who recently had blood cultures obtained at [facility] on 03/19/18 for fever which were positive in 4 out of 4 bottles for group B Streptococcus. Patient was to start IV antibiotics but was found to have bradycardia and was admitted to [facility] on 03/23/17. Urine culture obtained at [facility] was positive for multiple bacteria [...]
[2024-12-29] MEDS: LACTATED RINGERS 1000ML 1,000 ML 999 ML IV (06:12)
--- NOTE | 2024-12-29 06:13 | XR_ITS ---
FINAL REPORT CLINICAL HISTORY: fall onto knee COMPARISON: None FINDINGS: LEFT KNEE 3 views of the left knee were obtained. There is no acute fracture or dislocation. Visualized joint spaces are normally aligned. Soft tissues are unremarkable. IMPRESSION: No acute bony abnormality. Reviewed, Interpreted and Dictated by Dayday Owens MD Transcribed by Yasemin Hodges Authenticated and [facility]
--- NOTE | 2024-12-29 06:13 | XR_ITS ---
FINAL REPORT CLINICAL HISTORY: fall skin tears COMPARISON: None FINDINGS: 2 views of the left forearm were obtained. Osteopenia is noted. There is no acute fracture or dislocation. The joints are intact. There are no soft tissue abnormalities. IMPRESSION: No acute process. Reviewed, Interpreted and Dictated by Dayday Owens MD Transcribed by Yasemin Hodges Authenticated and [facility]
--- NOTE | 2024-12-29 06:13 | XR_ITS ---
FINAL REPORT CLINICAL HISTORY: fall onto knee COMPARISON: None FINDINGS: 3 views of the right knee were obtained. There is no acute fracture or dislocation. Visualized joint spaces are normally aligned. Surgical clips are present in the medial right lower leg. Soft tissues are otherwise unremarkable. IMPRESSION: No acute bony abnormality. Reviewed, Interpreted and Dictated by Dayday Owens MD Transcribed by Yasemin Hodges Authenticated and [facility]
[2024-12-29 06:14] LABS: VBG HCO3 24.7 mmol/L (23-30); VBG PCO2 46.8 mmol/L (35-51); VBG PH 7.34 mmol/L (7.31-7.41); VBG PO2 46.2 mmol/L (28-40)
[2024-12-29 06:19] LABS: Hematocrit 29.3 % (37.0-47.0); Hemoglobin 8.8 g/dL (12.2-16.2); Immature Granulocytes % 0.6 %; Mean Corpuscular HGB Conc 30.0 g/dL (31.8-35.4); Mean Corpuscular Hemoglobin 26.0 pg (27.0-31.2); Mean Corpuscular Volume 86.7 fl (81-99); Nucleated Red Blood Cells % 0 %; Platelet Count 354 K/mm3 (142-424); Red Blood Count 3.38 M/mm3 (4.20-5.40); Red Cell Distribution Width-SD 59.7 fL; White Blood Count 10.9 K/mm3 (4.8-10.8)
[2024-12-29 06:20] LABS: Lactate Venous 2.3 mmol/L (0.4-2.0)
[2024-12-29 06:21] LABS: Alanine Aminotransferase 42 U/L (12-78); Albumin Level 4.2 g/dl (3.5-5.0); Albumin/Globulin Ratio 1.5 (1.1-1.8); Alkaline Phosphatase 204 U/L (38-126); Anion Gap 16.1 mEq/L (5-15); Aspartate Amino Transferase 34 U/L (14-36); Bilirubin,Total 0.6 mg/dl (0.2-1.3); Calcium 8.8 mg/dl (8.4-10.2); Carbon Dioxide 26 mmol/L (22.0-30.0); Chloride 103 mmol/L (98-107); Creatinine Clearance Estimated 25 mL/min (50-200); Creatinine,Serum 3.00 mg/dl (0.52-1.04); Estimated Glomerular Filt Rate 16 ml/min (>60); GFR (African American) 19 ML/MIN (>60); Globulin 2.8 g/dL (1.3-3.2); Glucose 134 mg/dl (74-100); Potassium 4.1 mmoL/L (3.5-5.1); Sodium 141 mmol/L (136-145); Total Protein,Serum 7.0 g/dl (6.3-8.2)
[2024-12-29 06:23] LABS: Blood Urea Nitrogen 102 mg/dl (7-17)
[2024-12-29] MEDS: BACITRACIN ZINC OINT 30GM TUBE TP (06:28)
[2024-12-29 06:33] LABS: Troponin I 0.02 ng/ml (0.00-0.034)
[2024-12-29 06:38] LABS: Activated Partial Thrombo Time 22.8 seconds (22.8-30.6); INR 1.05 (0.9-1.1); Prothrombin Time 11.6 seconds (10.1-12.5)
--- NOTE | 2024-12-29 07:03 | ECG_ITS ---
APPROVED REPORT Exam: Resting ECG HR:103 bpm ECG Measurements Heart Rate 103 AXES QRSd 120 QRS 42 QT 397 T 120 QTc 457 Conclusion ATRIAL FIBRILLATION WITH RAPID VENTRICULAR RESPONSE MODERATE INTRAVENTRICULAR CONDUCTION DELAY [110+ ms QRS DURATION] ST DEVIATION AND MODERATE T-WAVE ABNORMALITY, CONSIDER LATERAL ISCHEMIA [-0.1+ mV T-WAVE IN I/aVL/V5/V6] Electronically signed by : SOFYA LAINEZ, 12/29/2024 15:36:09
[2024-12-29] MEDS: 0.9 % SODIUM CHLORIDE 50 ML VIAL IV (07:05)
[2024-12-29] MEDS: SODIUM CHLORIDE 0.9% 10ML SYR (RAD ONLY) 10 ML IV (07:05)
[2024-12-29] MEDS: IOPAMIDOL-370 (76%);100ML BOTTLE 80 ML IV (07:05)
--- NOTE | 2024-12-29 09:23 | PC.NURSE ---
EMS called for transport of this pt back to [place]
[2024-12-29 10:19] LABS: Reflex Lactic Add Lactic Reflex
== END 2024-12-29 09:42 | disposition home or self-care (01) ==
PROVIDERS: Emergency Provider Emergency Medicine; PCP Family Medicine
DX: S02.2XXA Fracture of nasal bones, initial encounter for closed fracture (principal)
CPT/HCPCS: 70450; 70486; 71045; 71275; 72125; 72170; 73090; 73562; 74174; 80053; 82803; 84484; 85025; 85610; 85730; 90471; 90715; 93005; 99285; 99291; J7120; Q9967

== ENCOUNTER 2025-01-01 09:01 | Outpatient (CLI) | payer MEDICARE, SELFPAY ==
--- OUTSIDE RECORDS SUMMARY | 2024-11-13 10:20 | XMS_ITS | Encounter Summary ---
Author Organization Healthcare Address [address] [place] [address] Care Team Providers Care Agronomist Name Role Phone Cosme Davis MD Primary Care Provider [phone] Reason for Referral * Consultation (Routine) - Authorized Specialty Diagnoses / Procedures Referred By Yogi tapia Referred To Contact Physical Therapy Diagnoses Pain in pelvis Smiley Negrete PA [address] [facility] [address] [place] [address] Phone: tel: fax: Referral ID Status Reason Start Date Expiration Date Visits Requested Visits Authorized [id number] Authorized Consult and Treat 11/13/2024 05/15/2026 1 1 Reason for Visit * Reason Comments Follow-up Encounter Details Date Type Department Care Team (Late st Contact Info) Description 11/13/2024 11:20 AM EDT Office Visit [facility] [address], 1st Floor [address] [place] [address] Pauol Darnell MD [address] [facility] [address] [place] [address] Pain in pelvis (Primary Dx) [...] and Family Not on file 10/13/2024 Attends Islam Services Not on file 10/13 Active Member [...] any time in the past 12 m [facility], were you homeless or living in a mcc (including now)? No 10/13/2024 [facility] Utilities Answer Date Recorded In the past 12 months has [employer], gas, oil, or water [employer] threatened to shut off services in your [...] follow up. She has been in a senior care facility. She has been working with physical [...] by mouth daily., Disp: , Rfl: HYDROcodone-acetaminophen ([place]) 5-325 MG tablet, , Disp: , Rfl: [...] Info) Description 01/21/2025 1:30 PM EST Appointment [facility] [address] [place] [address] 01/21/2025 2:00 PM EST Appointment [facility] [address] [place] [address] 01/21/2025 2:40 PM EST Office Visit [facility] [address] [place] [address] Jose Rosario MD [address] [place] [address] Scheduled Referrals Name Type Priority [...] documented as of this encounter Care Teams Agronomist Relationship Specialty Start Date End Date Cosme Davis MD [address] [place] [address] PCP - General 06/24/20 documented as of this encounter
--- OUTSIDE RECORDS SUMMARY | 2024-11-13 10:23 | XMS_ITS | Encounter Summary ---
Author Organization Healthcare Address [address] [place] [address] Care Team Providers Care Brewer Helper Name Role Phone Cosme Davis MD Primary Care Provider [phone] Encounter Details Date Type Department Care Team (Latest Contact Info) Description 11/13/2024 11:23 AM EDT - 11/13/2024 11:59 PM EDT Hospital Encounter [place] [facility] [address], 1st [place] [address] Pain in pelvis Discharge Disposition: Home or [...] and Family Not on file 10/13/2024 Attends Religion Services Not on file 10/13 Active Member [...] any time in the past 12 m [facility], were you homeless or living in a snf (including now)? No 10/13/[address] [facility] Utilities Answer Date Recorded In the past 12 months has th e [employer], gas, oil, or water company threatened to [...] tablet by mouth daily. 08/21/2018 HYDROcodone-acet aminophen ([place]) 5-325 MG tablet 11/02/2024 insulin glargine (Lantus) [...] Info) Description 01/21/2025 1:30 PM EST Appointment [facility] Lab [address], [address] [place] [address] 01/21/2025 2:00 PM EST Appointment [facility] [address], [address] [place] [address] 01/21/2025 2:40 PM EST Office Visit [facility] Clinic [address], [address] [place] [address] Jose Rosario MD [address] [facility] [address] [place] [address] documented as of this encounter Procedures Procedure [...] documented as of this encounter Care Teams Brewer Helper Relationship Specialty Start Date End Date Cosme Davis MD [address] [place] [address] PCP - General 06/24/20 documented as of this encounter
--- OUTSIDE RECORDS SUMMARY | 2025-01-01 09:03 | XMS_ITS | Encounter Summary ---
Author Organization [employer] ([place], [place], [place], [place], [place]) Address [address] [place] [address] Care Team Providers Care Isotope Technician Name Role Phone Unavailable Primary Care Provider Unavailabl e Encounter Details Date Type Department Care Team (Late st Contact Info) Description 03/29/2018 Transcribed Document [facility] Family Medicine [address] [place] [address] ProviderZion MD [address] [place] [address] Social History Tobacco Use Types [...] - Zion ProviderMD - 03/29/2018 3:30 PM FAMILY ASSISTANT Care Management Assessment/Plan Entered On: 03/29/2018 15:31 EST Performed On: 03/29/2018 15:30 EST by Odalys Bush Rn-Applications Engineering ManagerSenior Production Manager Note Anticipated Discharge Date : 03/30/2018 14:00 EST Care Management Note : Patient discharge summary sent through [facility]. Care Management Note Report : Odalys Bush Rn-Applications Engineering Manager - 03/29/18 13:22:06 Confirmed with [facility] that patient can transfer today [phone]; [phone]. Spoke with patient's daughter Jazmine [phone] who plans to transport[address] Dr. Hamilton advised and dishcarge pharmacy aware. Patient should be ready to transport by 15:00. iNnoska Cuellar Rn-Applications Engineering Manager Ed - 03/28/18 20:23:22 CM faxed orders to [facility] for IV abx f [phone] per md orders. CM will need to call [facility] to notify them of final d/c plan per MD orders p [phone]. CM to follow for ongoing d/c planning/needs. Ninoska Cuellar, Rn-Applications Engineering Manager Ed - 03/28/18 18:12:15 CM recieved call from Gama at [facility] stating they can take pt at their facility, but not until Saturday, as they now have an agreement with [facility]. CM then spoke with Edie from [facility] and she again confirms they can accept pt at their facility tomorrow. CM updated pt and now pt is agreeable to go to [facility]. She also gave CM permission to speak with Jazmine joshi by phone p [phone]. CM spoke with Jazmine and she is agreeable with plan for [facility], stating its much closer to them, approx 30 min. Pt tells CM that her PCP, Dr. Davis had told her that she was not able to do IV abx from home. Discharge plan will be to go to [facility] in the am. CM updated Dr. Stauffer and he reports he will notify [facility] for tomorrow. CM will cont to follow for ongoing d/c planning/needs. Ninoska Cuellar, Rn-Applications Engineering Manager Ed - 03/28/18 16:01:02 [facility] Clem states home cost for Rocephin is $3.70/wk. She states they may be able to contract with SNF to provide abx at pt's cost. She asked CM to have SNF call Paulo at their office to see about arranging. CM called MADELYN Corona with [facility] and she will call [facility] to see if this can be arranged. Updated BS RNAva. CM will cont to follow. Ninoska Cuellar, Rn-Applications Engineering Manager Ed - 03/28/18 14:57:29 Called [facility] and spoke with Chiquita and updated her on IV abx needs. SHe will check cost and call CM back to see if bed offer is still on the table. CM left for [facility] with [facility] to update her, left requesting return phone call. CM updated pt and she appears discouraged that [facility] will not accept her as a pt. She tells CM that she is considering just going home. BLAKE also called Mariahjesus with [facility] to argueta abx at home. She states that [facility] may also be able to contract with facility to provide them with abx at their cost. CM faxed info on pt and abx to [facility] f [phone]. CM updated BS RN, Ava. CM will cont to follow. Ninoska Cuellar, Rn-Applications Engineering Manager Ed - 03/28/18 14:21:[address] Jones this am and he tells CM that pt is ready for discharge from his standpoint and that ID has a plan in place for IV abx. PT does have a PICC in place. Recieved VM from [facility] with [facility] p [phone] stating they are interested in pt. CM went to BS to speak with pt to discuss bed offers. CM presented bed offers and pt tells CM that she really doesn't want to go to another facility. Pt tells CM that she only wants to go to [facility], as she has been there in the past. [facility] had not make bed offer at this [...] -BLAKE then spoke with MADELYN Corona at [facility] and she states that pt appears too sick at this time to come to their facility. BLAKE provided her with verbal updates, as well as faxed updates f [phone]. She states they will reevaluate now, knowing [...] pt at this time due to the $1030-7627 IV rocephin cost through 05/04/[address] Diaz orders. Cm to follow for ongoing d/c planning/needs. Stew Porras, RN - 03/27/18 16:25:12 edie from [facility] ( ex [phone]) called to make bed offer. bed offers will be presented to pt 03/28. [phone] Stew Porras, RN - 03/27/18 15:00:29 spoke to ID who states pt maybe ready for dc as early as 03/28. id and attending PA are recommending SNF. spoke with pt and her dtr, jazmine and informed them of suggestion from drs to dc to snf for iv abx. pt and dtr in agreement and [facility] following [place].... [place]. Stew Porras, REGULO - 03/27/18 10:34:34 RRS-43 + for [facility] CT consulted and per ID, infection must clear prior to any ant surgical intervention Currnelty on rocephin iv w/bld cx pending Documentation Status Complete : Yes Odalys Bush Rn-Applications Engineering Manager - 03/29/2018 15:30 EST Info/List/Choices Provided Patient Offered Choice/Affiliations Explained : Yes List/Info Provided Pt/Fam/Support Person : [facility] Odalys Bush Rn-Applications Engineering Manager - 03/29/2018 15:30 EST Final Discharge Disposition Note-CM Final Discharge Disposition Note-CM : Transport by Family. Discharge To Care Management : SNF with Medicare Certification-03 Name of Receiving Facility/Provider- : [facility] Odalys Bush Rn-Applications Engineering Manager - 03/29/2018 15:30 EST documented in this encounter Plan of Treatment Not on file documented as of this encounter Visit Diagnoses Not on filedocumented in this encounter
--- OUTSIDE RECORDS SUMMARY | 2025-01-01 09:03 | XMS_ITS | Encounter Summary ---
Author Organization [employer] ([place], [place], [place], [place], [place]) Address [address] [place] [address] Care Team Providers Care Manufacturing Technology Analyst Name Role Phone Unavailable Primary Care Provider Unavailabl e Encounter Details Date Type Department Care Team (Late st Contact Info) Description 03/28/2018 Transcribed Document [facility] Family Medicine [address] [place] [address] ProviderZion MD [address] [place], [place] [id number] Social History Tobacco Use Types Packs/Day Years Used Date Smoking Tobacco: Never Assessed Comments Unknown Sex and Gender Information Value Date Recorded Sex Assigned at Not on file Legal Sex Female 4:39 PM CDT Gender Identity Not on file Sexual Orientation Not on file documented as of this encounter Miscellaneous Notes * Cerner Conversion Note - Zion ProviderMD - 03/28/2018 6:04 PM BUSH AND VINE FARMER FRUIT CROPS Patient: ETHAN LOREDO Age: 57 years Sex: [...] Rocephin: 2 Gram, 100 mL/Hr, IV Piggyback, [id number] Tylenol: 650 mg, Oral, Q4H, PRN: Other [...] Oral, Daily cefTRIAXone 2 Gram, IV Piggyback, [id number] citalopram 20 mg tab 20 mg 1 [...]
--- OUTSIDE RECORDS SUMMARY | 2025-01-01 09:03 | XMS_ITS | Encounter Summary ---
Author Organization [employer] ([place], [place], [place], [place], [place]) Address [address] [place] [address] Care Team Providers Care Dyer Helper Name Role Phone Unavailable Primary Care Provider Unavailabl e Encounter Details Date Type Department Care Team (Late st Contact Info) Description 03/28/[address] [facility] Family Medicine [address] [place] [address] ProviderZion MD [address] [place] [address] Social History Tobacco Use Types [...] - Historical ProviderMD - 03/28/2018 2:01 PM CHIEF OPERATOR Care Management Assessment/Plan Entered On: 03/28/2018 14:21 EST Performed On: 03/28/2018 14:01 EST by Ninoska Cuellar Rn-Assembler Mechanical Ordnance Ed Care Management Note Anticipated Discharge Date : 04/03/2018 14:00 EST Care Management Note : CM spoke with Dr. Jones this am and he tells CM that pt is ready for discharge from his standpoint and that ID has a plan in place for IV abx. PT does have a PICC in place. Recieved VM from [facility] with [facility] p [phone] stating they are interested in pt. CM went to to speak with pt to discuss bed offers. CM presented bed offers and pt tells CM that she really doesn't want to go to another facility. Pt tells CM that she only wants to go to [facility], as she has been there in the past. [facility] had not make bed offer at this [...] updates, as well as faxed updates f [phone]. She states they will reevaluate now, knowing [...] pt at this time due to the $3425-1929 IV rocephin cost through 05/04/[address] Diaz orders. Cm to follow for ongoing d/c planning/needs. Care Management Note Report : Stew Porras, REGULO - 03/27/18 16:25:12 blayne from [facility] ( ex [phone]) called to make bed offer. bed offers will be presented to pt 03/28. [place] [phone] Stew Porras, REGULO - 03/27/18 15:00:29 spoke to ID who states pt maybe ready for dc as early as 03/28. id and attending PA are recommending SNF. spoke with pt and her dtr, jazmine and informed them of suggestion from drs to dc to snf for iv abx. pt and dtr in agreement and referrlas made via [facility] to the following counties.... [place]. Stew Porras, REGULO - 03/27/18 10:34:34 RRS-43 + for BROCK CT consulted and per ID, infection must clear prior to any ant surgical intervention Currnelty on rocephin iv w/bld cx pending Documentation Status Complete : Yes Ninoska Cuellar, Rn-Assembler Mechanical Ordnance Ed - 03/28/2018 14:01 EST Electronically signed by [facility] Conversion Cook Vacuum Kettle Cerner at 05/29/2022 8:46 PM CDT documented in this encounter Plan of Treatment Not on file documented as of this encounter Visit Diagnoses Not on filedocumented in this encounter
--- OUTSIDE RECORDS SUMMARY | 2025-01-01 09:03 | XMS_ITS | Encounter Summary ---
Author Organization [employer] ([place], [place], [place], [place], [place]) Address [address] [place] [address] Care Team Providers Care Transformer Stock Clerk Name Role Phone Unavailable Primary Care Provider Unavailabl e Encounter Details Date Type Department Care Team (Late st Contact Info) Description 03/29/2018 Transcribed Document [facility] Family Medicine [address] [place] [address] ProviderZion MD [address] [place] [address] Social History Tobacco Use Types [...] - Historical ProviderMD - 03/29/2018 5:00 AM DATA SUPPORT SPECIALIST Chart Check - Review Order Profile Entered On: 03/29/2018 6:43 EST Performed On: 03/29/2018 5:00 EST by Tiffany Guadalupe RN Chart Check Chart Reviewed Date and Time : 03/29/2018 6:43 EST Powerplans Initiated/Discontinued as Appropriate : Yes All Active Orders Reviewed : Yes Tiffany Guadalupe RN - 03/29/2018 6:43 EST Electronically signed by Jorge Alberto [facility] Conversion Stock Saw Operator Cerner at 05/29/2022 8:36 PM CDT documented in this encounter Plan of Treatment Not on file documented as of this encounter Visit Diagnoses Not on filedocumented in this encounter
--- OUTSIDE RECORDS SUMMARY | 2025-01-01 09:03 | XMS_ITS | Encounter Summary ---
Author Organization [employer] ([place], [place], [place], [place], [place]) Address [address] [place] [address] Care Team Providers Care Motor Coach Operator Name Role Phone Unavailable Primary Care Provider Unavailabl e Encounter Details Date Type Department Care Team (Late st Contact Info) Description 03/28/2018 Transcribed Document [facility] Family Medicine [address] [place] [address] ProviderZion MD [address] [place] [address] Social History Tobacco Use Types [...] - Historical ProviderMD - 03/28/2018 5:00 AM CORPORATE LAWYER Chart Check - Review Order Profile Entered [...]
--- OUTSIDE RECORDS SUMMARY | 2025-01-01 09:03 | XMS_ITS | Encounter Summary ---
Author Organization Healthcare Address [address] [place] [address] Care Team Providers Care Orthoptist Name Role Phone Cosme Davis MD Primary Care Provider [phone] Encounter Details Date Type Department Care Team [...] and Family Not on file 10/13/2024 Attends [employer] Not on file 10/13 Active Member [...] any time in the past 12 [facility], were you homeless or living in a long-term (including now)? No 10/13/2024 [facility] Utilities Answer Date Recorded In the [...] Info) Description 01/21/2025 1:30 PM EST Appointment [facility] [address] [place] [address] 01/21/2025 2:00 PM EST Appointment [facility] [address] [place] [address] 01/21/2025 2:40 PM EST Office Visit [facility] [address] [place] [address] Jose Rosario MD [address] [place] [address] documented as of this encounter [...] documented as of this encounter Care Teams Orthoptist Relationship Specialty Start Date End Date Cosme Davis MD [address] [place] [address] PCP - General 06/24/20 documented as of this encounter
--- OUTSIDE RECORDS SUMMARY | 2025-01-01 09:03 | XMS_ITS | Encounter Summary ---
Author Organization [employer] ([place], [place], [place], [place], [place]) Address [address] [place] [address] Care Team Providers Care Department Editor Name Role Phone Unavailable Primary Care Provider Unavailabl e Encounter Details Date Type Department Care Team (Late st Contact Info) Description 03/28/2018 Transcribed Document [facility] Family Medicine [address] [place] [address] ProviderZion MD [address] [place], [...] - Historical ProviderMD - 03/28/2018 5:00 PM LINING PRINTER Chart Check - Review Order Profile Entered On: 03/28/2018 16:43 EST Performed On: 03/28/2018 17:00 EST by Ava Schmitt RN Chart Check Chart Reviewed Date and Time : 03/28/2018 16:43 EST Ava Schmitt RN - 03/28/2018 16:43 EST Electronically signed by Jorge Alberto [facility] Conversion Satellite Technician Cerner at 05/29/2022 8:40 PM CDT documented in this encounter Plan of Treatment Not on file documented as of this encounter Visit Diagnoses Not on filedocumented in this encounter
--- OUTSIDE RECORDS SUMMARY | 2025-01-01 09:03 | XMS_ITS | Encounter Summary ---
Author Organization [employer] ([place], [place], [place], [place], [place]) Address [address] [place] [address] Care Team Providers Care Campus Safety Officer Name Role Phone Unavailable Primary Care Provider Unavailabl e Encounter Details Date Type Department Care Team (Late st Contact Info) Description 03/29/2018 Transcribed Document [facility] Family Medicine [address] [place] [address] ProviderZion MD [address] [place] [address] Social History Tobacco Use Types Packs/Day Years Used Date Smoking Tobacco: Never Assessed Comments Unknown Sex and Gender Information Value Date Recorded Sex Assigned at Not on file Legal Sex Female 4:39 PM CDT Gender Identity Not on file Sexual Orientation Not on file documented as of this encounter Miscellaneous Notes * Cerner Conversion Note - Historical ProviderMD - 03/29/2018 1:22 PM PR INTERNSHIP Nursing Discharge Summary Entered On: 03/29/2018 13:22 EST Performed On: 03/29/2018 13:22 EST by Odalys Bush Rn-Academic Affairs Director Discharge Documentation Discharge, Comment : Report: Joshua [phone] Discharge Summary Sent to : Joshua [phone] Odalys Bush Rn-Academic Affairs Director - 03/29/2018 13:22 EST Electronically signed by Jorge Alberto [facility] Conversion Road Passenger Firer Cerner at 05/29/2022 8:31 PM CDT documented in this encounter Plan of Treatment Not on file documented as of this encounter Visit Diagnoses Not on filedocumented in this encounter
--- OUTSIDE RECORDS SUMMARY | 2025-01-01 09:03 | XMS_ITS | Encounter Summary ---
Author Organization [employer] ([place], [place], [place], [place], [place]) Address [address] [place] [address] Care Team Providers Care Latin Professor Name Role Phone Unavailable Primary Care Provider Unavailabl e Encounter Details Date Type Department Care Team (Late st Contact Info) Description 03/28/2018 Transcribed Document [facility] Family Medicine [place] [address] ProviderZion MD [address] [place] [address] Social History Tobacco Use Types Packs/Day Years Used Date Smoking Tobacco: Never Assessed Comments Unknown Sex and Gender Information Value Date Recorded Sex Assigned at Not on file Legal Sex Female 4:39 PM CDT Gender Identity Not on file Sexual Orientation Not on file documented as of this encounter Miscellaneous Notes * Cerner Conversion Note - Historical ProviderMD - 03/28/2018 11:06 AM INSULATOR TECHNICIAN Patient: ETHAN LOREDO Age: 57 Years [...] regurgitation. Electronically signed by Vinayak Azul Conversion Adjunct Communications Faculty Member Cerner at 05/29/2022 8:39 PM CDT documented in this encounter Plan of Treatment Not on file documented as of this encounter Visit Diagnoses Not on filedocumented in this encounter
--- OUTSIDE RECORDS SUMMARY | 2025-01-01 09:03 | XMS_ITS | Encounter Summary ---
Author Organization [employer] ([place], [place], [place], [place], [place]) Address [address] [place] [address] Care Team Providers Care Insole Bottom Filler Name Role Phone Unavailable Primary Care Provider Unavailabl e Encounter Details Date Type Department Care Team (Late st Contact Info) Description 03/29/2018 Transcribed Document [facility] [place] [address] [place] [address] ProviderZion MD [address] [place], [place] [id number] Social History Tobacco Use Types Packs/Day Years Used Date Smoking Tobacco: Never Assessed Comments Unknown Sex and Gender Information Value Date Recorded Sex Assigned at Not on file Legal Sex Female 4:39 PM CDT Gender Identity Not on file Sexual Orientation Not on file documented as of this encounter Miscellaneous Notes * Cerner Conversion Note - Historical ProviderMD - 03/29/2018 2:00 AM SENIOR PHP SOFTWARE DEVELOPER Channel Cementer Insole Machine Details Entered On: 03/29/2018 6:43 EST Performed [...]
--- OUTSIDE RECORDS SUMMARY | 2025-01-01 09:03 | XMS_ITS | Encounter Summary ---
Author Organization [employer] ([place], [place], [place], [place], [place]) Address [address] [place] [address] Care Team Providers Care Fire Assistant Name Role Phone Unavailable Primary Care Provider Unavailabl e Encounter Details Date Type Department Care Team (Late st Contact Info) Description 03/28/2018 Transcribed Document [facility] Family Medicine [facility] [place] [address] ProviderZion MD [address] [place] [id number] Social History Tobacco Use Types Packs/Day Years Used Date Smoking Tobacco: Never Assessed Comments Unknown Sex and Gender Information Value Date Recorded Sex Assigned at Not on file Legal Sex Female 4:39 PM CDT Gender Identity Not on file Sexual Orientation Not on file documented as of this encounter Miscellaneous Notes * Cerner Conversion Note - Zion ProviderMD - 03/28/2018 12:56 PM DIRECTOR ENTERPRISE SYSTEMS Patient: ETHAN CRONIN Age: 57 years Sex: Female : 1960 Associated Diagnoses: None Author: CARROLL HIGH MD-INF Basic Information CC: Sepsis bacteremia 03/19/18 4/4 bottles for Group b strep ([facility]), mitral prosthetic valve endocarditis History of Present Illness 57-year-old white female with history of bladder cancer, atrial flutter, pacemaker placement 2016, hypertension, DM2, COPD, pancreatitis, who recently had blood cultures obtained at [facility] on 03/19/18 for fever which were positive in 4 out of 4 bottles for group B Streptococcus. Patient was to start IV antibiotics but was found to have bradycardia and was admitted to [facility] on 03/23/17. I was consulted on 03/25/17. The patient had been started on vancomycin and Rocephin. Urine culture obtained at [facility] was positive for multiple bacteria consistent with [...] cefTRIAXone (Rocephin) - 2 Gram, IV Piggyback, [id number], infuse over 30 Minute(s), Routine Anticoagulant heparin [...] Normal strength, No tenderness. Integumentary: Warm, Dry, [place], No pallor, No rash, Left chest wall [...] 23) Troponin <0.015 (MAR 23) , ACC: [id number] ORDER: Culture Blood DATE: 03/23/2018 17:49 SOURCE: Blood SITE: Reports Pre 03/27/2018 23:01 No growth at 4 days. Pre 03/26/2018 23:01 No growth at 3 days. Pre 03/25/2018 23:01 No growth at 2 days. Pre 03/24/2018 23:02 No growth at 1 day. Pre 03/24/2018 16:03 Culture less than 24 Hrs old == ACC: [id number] ORDER: Culture Blood DATE: 03/23/2018 17:49 SOURCE: [...] 4 blood culture bottles positive at [facility] (spoke to Maurice Spencer, at [facility]). BROCK consistent with mitral valve endocarditis, [...] Dr. Perez's service, cardiology, and Dr. Alan.. area sales manager: Please arrange for outpatient IV antibiotics with Rocephin 2 g IV every 12 hours until 05/04/18. Follow CBC, CMP, CRP weekly while on IV antibiotics. Fax orders to [phone], and call [phone] with final arrangements. Arrange for follow-up with me in 2 weeks post discharge. documented in this encounter Plan of Treatment Not on file documented as of this encounter Visit Diagnoses Not on filedocumented in this encounter
--- OUTSIDE RECORDS SUMMARY | 2025-01-01 09:03 | XMS_ITS | Encounter Summary ---
Author Organization [employer] ([place], [place], [place], [place], [place]) Address [address] [place] [address] Care Team Providers Care Barrel Tester And Drainer Name Role Phone Unavailable Primary Care Provider Unavailabl e Encounter Details Date Type Department Care Team (Late st Contact Info) Description 03/28/2018 Transcribed Document [facility] Family Medicine [address] [place] [address] ProviderZion MD [address] [place] [address] Social History Tobacco Use Types [...] - Historical ProviderMD - 03/28/2018 8:22 PM CITY DISPATCH SUPERVISOR Care Management Assessment/Plan Entered On: 03/28/2018 20:23 EST Performed On: 03/28/2018 20:22 EST by Ninoska Cuellar Rn-Industrial Maintenance Repairer Ed Care Management Note Anticipated Discharge Date : 04/03/2018 14:00 EST Care Management Note : CM faxed orders to [facility] for IV abx f [phone] per orders. CM will need to call [facility] to notify them of final d/c plan per orders p [phone]. CM to follow for ongoing d/c planning/needs. Care Management Note Report : Ninoska Cuellar, Rn-Industrial Maintenance Repairer Ed - 03/28/18 18:12:15 CM recieved call from Gama at [facility] stating they can take pt at [...] speak with Jazmine joshi by phone p [phone]. CM spoke with Jazmine and she is [...] follow for ongoing d/c planning/needs. Ninoska Cuellar, Rn-Industrial Maintenance Repairer Ed - 03/28/18 16:01:02 [facility] Clem states home cost for Rocephin is $3.70/wk. She states they may be able to contract with SNF to provide abx at pt's cost. She asked CM to have SNF call Paulo at their office to see about arranging. CM called MADELYN Corona with [facility] and she will call [facility] to see if this can be arranged. Updated BS RN, Ava. CM will cont to follow. Ninoska Cuellar, Rn-Industrial Maintenance Repairer Ed - 03/28/18 14:57:29 Called [facility] and spoke with Chiquita and updated her on IV abx needs. SHe will check cost and call CM back to see if bed offer is still on the table. CM left for [facility] with [facility] to update her, left requesting return phone call. CM updated pt and she appears discouraged that [facility] will not accept her as a pt. She tells CM that she is considering just going home. BALKE also called Clem with [facility] to argueta abx at home. She states that [facility] may also be able to contract with facility to provide them with abx at their cost. CM faxed info on pt and abx to [facility] f [phone]. CM updated BS RNAva. CM will cont to follow. Ninoska Cuellar, Rn-Industrial Maintenance Repairer Ed - 03/28/18 14:21:[address] Jones this am and he tells CM that pt is ready for discharge from his standpoint and that ID has a plan in place for IV abx. PT does have a PICC in place. Recieved VM from [facility] with [facility] p [phone] stating they are interested in pt. CM went to BS to speak with pt to discuss bed offers. CM presented bed offers and pt tells CM that she really doesn't want to go to another facility. Pt tells CM that she only wants to go to [facility], as she has been there in the past. [facility] had not make bed offer at this [...] updates, as well as faxed updates f [phone]. She states they will reevaluate now, knowing [...] pt at this time due to the $2018-7160 IV rocephin cost through 05/04/[address] Diaz orders. Cm to follow for ongoing d/c planning/needs. Stew Porras, RN - 03/27/18 16:25:12 edie from [place] ([phone]) called to make bed offer. bed offers will be presented to pt 03/28. dtr will provide transportationashely [phone] Stew Porras, RN - 03/27/18 15:00:29 spoke to ID who states pt maybe ready for dc as early as 03/28. id and attending PA are recommending SNF. spoke with pt and her dtr, jazmine and informed them of suggestion from drs to dc to snf for iv abx. pt and dtr in agreement and [facility].... [place]. Stew Porras, RN - 03/27/18 10:34:34 RRS-43 + for [facility] CT consulted and per ID, infection must clear prior to any ant surgical intervention Currnelty on rocephin iv w/bld cx pending Documentation Status Complete : Yes Ninoska Cuellar, Rn-Industrial Maintenance Repairer Ed - 03/28/2018 20:22 EST Electronically signed by Jorge Alberto [facility] Conversion Dado Operator Cerner at 05/29/2022 8:32 PM CDT documented in this encounter Plan of Treatment Not on file documented as of this encounter Visit Diagnoses Not on filedocumented in this encounter
--- OUTSIDE RECORDS SUMMARY | 2025-01-01 09:03 | XMS_ITS | Encounter Summary ---
Author Organization [employer] ([place], [place], [place], [place], [place]) Address [address] [place] [address] Care Team Providers Care Radiologic Technology Instructor Name Role Phone Unavailable Primary Care Provider Unavailabl e Encounter Details Date Type Department Care Team (Late st Contact Info) Description 03/29/2018 Transcribed Document [facility] [address] [place] [address] ProviderZion MD [address] [place], [place] [id number] Social History Tobacco Use Types Packs/Day Years Used Date Smoking Tobacco: Never Assessed Comments Unknown Sex and Gender Information Value Date Recorded Sex Assigned at Not on file Legal Sex Female 4:39 PM CDT Gender Identity Not on file Sexual Orientation Not on file documented as of this encounter Miscellaneous Notes * [employer]ner Conversion Note - Historical ProviderMD - 03/29/2018 1:22 PM BUS MONITOR Discharge Instructions Entered On: 03/29/2018 13:23 EST Performed On: 03/29/2018 13:22 EST by Odalys Bush Rn-Abstract Manager DC Instructions HWD Discharge Summary Sent to : Joshua [phone] Special Instructions : Report: Joshua [phone] Odalys Bush Rn-Abstract Manager - 03/29/2018 13:22 EST Electronically signed by Jorge Alberto [facility] Conversion S[employer] Security Cerner at 05/29/2022 8:39 PM CDT documented in this encounter Plan of Treatment Not on file documented as of this encounter Visit Diagnoses Not on filedocumented in this encounter
--- OUTSIDE RECORDS SUMMARY | 2025-01-01 09:03 | XMS_ITS | Clinical Summary ---
Author Organization [facility] Address [address] [place] [address] Phone Care Team Providers Care Sex Worker Or Escort Name Role Phone Kar RAJPUT, Willa Molina Unavailable Conditions or Problems Problem Name Problem Code Onset Date Status Entry Date Provider Comment Standard Description Annotate Other obesity due to excess calories 512104882 (SNOMED CT) 06/03 Active 06/03 Sharona Annamaria Simple obesity Nicotine dependence 51026803 (SNOMED CT) 06/03 Active 06/03 Sharona Yin Nicotine dependence Coronary artery disease, S/P CABG 71757647 (SNOMED CT) 04/11 Active 04/11 Elvira Beth Coronary arteriosclerosis ARF due to infection 921654875 (SNOMED CT) 04/11 Active 04/11 Elvira Beth Acute renal failure due to ischemia Heart valve prosthesis, infection/inf lammatory reaction, subsequent encounter T82.6xxD (ICD-10-CM ) 04/11 Active 04/11 Elvira Beth 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, subsequent encounter Acute and subacute bacterial endocarditis 084479258 (SNOMED CT) 04/11 Active 04/11 Elvira Beth Acute and subacute bacterial endocarditis Group B strep sepsis A40.1 (ICD-10-CM ) 04/11 Active 04/11 Elvira Beth Sepsis due to streptococcus, group B DM Type II 64911551 (SNOMED CT) 04/11 Active 04/11 Elvira Beth Type 2 diabetes mellitus Hypoalbuminem ia 045418353 (SNOMED CT) 04/11 Active 04/11 Elvira Beth Hypoalbuminemia Medications Medication Instructions Start Date Stop Date Generic Name NDC Provider CEFTRIAXONE SODIUM 2 GM SOLR 2gm IV Q12hrs/ [facility] [phone] Plan to start at [facility] 04/18/18 to do 2xper day infusion. CEFTRIAXONE SODIUM 11660611785 Frida Morales PENICILLIN V POTASSIUM 250 MG TABS 1 by mouth twice a day for life PENICILLIN V POTASSIUM 58999737392 Gama Diaz MD PENICILLIN V POTASSIUM 250 MG/5ML SOLR 1 by mouth twice a day 30 days PENICILLIN V POTASSIUM 00906567280 Edie Hooks RN PENICILLIN V POTASSIUM 250 MG TABS 1 by mouth twice a day 30 days PENICILLIN V POTASSIUM 91781031182 Edie Hooks RN PENICILLIN V POTASSIUM 250 MG/5ML SOLR 1 by mouth twice a day 30 days PENICILLIN V POTASSIUM 79218720104 Gama Diaz MD PENICILLIN V POTASSIUM 250 MG TABS 1 by mouth twice a day 30 days PENICILLIN V POTASSIUM 18631177230 Gama Diaz MD CARDIZEM 120 MG TABS 1 tab once daily DILTIAZEM HCL 71247861892 Tahira Lucero VITAMIN D (CHOLECALCIFEROL ) 25 MCG (1000 UT) CAPS as instructed CHOLECALCIFEROL 21362715204 Tahira Lucero CEFTRIAXONE SODIUM 2 GM SOLR 2gm IV Q12hrs/ [facility] [phone] Plan to start at [facility] 04/18/18 to do 2xper day infusion. CEFTRIAXONE SODIUM 80747646241 Willa Lakhani RN PRAVASTATIN SODIUM 20 MG TABS Take one by mouth daily PRAVASTATIN SODIUM 15198602167 Garima Restrepo PLAVIX 75 MG TABS Take one by mouth daily CLOPIDOGREL BISULFATE 64683856613 Garima Restrepo NOVOLIN 70/30 (70-30) 100 UNIT/ML SUSP 20 units in AM, 10 units in PM INSULIN NPH ISOPHANE & REGULAR 05582694685 Garima Restrepo [facility] NICOTINE 21 MG/24HR PT24 1 patch daily NICOTINE 98841072853 Garima Floriandox LEVOTHYROXINE SODIUM 25 MCG TABS Take one by mouth daily LEVOTHYROXINE SODIUM 54249378911 Garima Floriandox HUMALOG 100 UNIT/ML SUBCUTANEOUS SOLUTION sliding scale INSULIN LISPRO 24716299707 Garima Floriandox GABAPENTIN 300 MG CAPS Take one by mouth daily GABAPENTIN 31074829626 Garima Floriandox FLORASTOR 250 MG CAPS Take one by mouth daily SACCHAROMYCES BOULARDII 48848947191 Garima Floriandox CELEXA 20 MG TABS Take one by mouth daily CITALOPRAM HYDROBROMIDE 05337477534 Garima Floriandox CARVEDILOL 3.125 MG TABS Take one by mouth daily CARVEDILOL 43321420988 Garima Lazarox ADULT ASPIRIN REGIMEN 81 MG ORAL TABLET DELAYED RELEASE Take one by mouth daily ASPIRIN 61223918399 Garima Lazarox AMBIEN 5 MG TABS Take/use as needed. ZOLPIDEM TARTRATE 37504916512 Garima Floriandox ALPRAZOLAM 0.5 MG TABS Take one by mouth 3 times daily, morning, afternoon and evening. 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 [...] reactive protein [Mass/volume] in Serum or Plasma [employer]unk C-REACTIVE PROTEIN N GE use only - [...] Date CPT-Cooral Continue oral antibiotics 20 02/03/14 CPT-58787 CMP [id number] CBC with Differential 2019 CPT-32359 C- reactive protein CPT-sl STAT Labs CPT-95821 [facility] [id number] CBC with Differential 2018 CPT-10310 C- reactive protein CPT-Cooral Continue oral antibiotics 20 30/08/23 CPT-02904 CMP [id number] CBC with Differential 2018 CPT-37520 C- reactive protein CPT-Cooral Continue oral antibiotics 20 31/05/23 CPT-PICREM PICC Removal CPT-DC Discontinue IV antibiotics 2 CPT-jodi New Oral Antibiotic CPT-ca Continue IV antibiotics 2018 CPT-12247 CMP [id number] CBC with Differential 2018 CPT-50974 C- reactive protein Vital Signs Date Name [...]
--- OUTSIDE RECORDS SUMMARY | 2025-01-01 09:04 | XMS_ITS | Encounter Summary ---
Author Organization [employer] ([place], [place], [place], [place], [place]) Address [address] [place] [address] Care Team Providers Care Non Profit Financial Controller Name Role Phone Unavailable Primary Care Provider Unavailabl e Encounter Details Date Type Department Care Team (Late st Contact Info) Description 03/27/2018 Transcribed Document [facility] [place] Family Medicine [address] [place] [address] ProviderZion MD [address] [place], [place] [id number] Social History Tobacco Use Types Packs/Day Years Used Date Smoking Tobacco: Never Assessed Comments Unknown Sex and Gender Information Value Date Recorded Sex Assigned at Not on file Legal Sex Female 4:39 PM CDT Gender Identity Not on file Sexual Orientation Not on file documented as of this encounter Miscellaneous Notes * [employer]ner Conversion Note - Historical ProviderMD - 03/27/2018 8:58 AM QUALITY AUDIT REPRESENTATIVE Consult Phone Call Documentation Entered On: [...]
--- OUTSIDE RECORDS SUMMARY | 2025-01-01 09:04 | XMS_ITS | Encounter Summary ---
Author Organization [employer] ([place], [place], [place], [place], [place]) Address [address] [place] [address] Care Team Providers Care Network Operations Lead Name Role Phone Unavailable Primary Care Provider Unavailabl e Encounter Details Date Type Department Care Team (Late st Contact Info) Description 03/26/2018 Transcribed Document [facility] [place] Family Medicine [address] [place] [address] ProviderZion MD [address] [place], [place] [id number] Social History Tobacco Use Types Packs/Day Years Used Date Smoking Tobacco: Never Assessed Comments Unknown Sex and Gender Information Value Date Recorded Sex Assigned at Not on file Legal Sex Female 4:39 PM CDT Gender Identity Not on file Sexual Orientation Not on file documented as of this encounter Miscellaneous Notes * [employer]ner Conversion Note - Historical ProviderMD - 03/26/2018 5:00 AM MINT WAFER DEPOSITOR Chart Check - Review Order Profile Entered [...]
--- OUTSIDE RECORDS SUMMARY | 2025-01-01 09:04 | XMS_ITS | Encounter Summary ---
Author Organization [employer] ([place], [place], [place], [place], [place]) Address [address] [place] [address] Care Team Providers Care Income Tax Return Preparer Name Role Phone Unavailable Primary Care Provider Unavailabl e Encounter Details Date Type Department Care Team (Late st Contact Info) Description 03/25/2018 Transcribed Document [facility] [place] Family Medicine [facility] [place] [address] ProviderZion MD [address] [place] [id number] Social History Tobacco Use Types Packs/Day Years Used Date Smoking Tobacco: Never Assessed Comments Unknown Sex and Gender Information Value Date Recorded Sex Assigned at Not on file Legal Sex Female 4:39 PM CDT Gender Identity Not on file Sexual Orientation Not on file documented as of this encounter Miscellaneous Notes * [employer]ner Conversion Note - Historical ProviderMD - 03/25/2018 1:44 PM EXECUTIVE ASSISTANT TO GENERAL COUNSEL Patient: ETHAN LOREDO Age: 57 Years Sex: [...] underlying sinus rhythm. 2. Biventricular internal cardioverter-defibrillator [employer], this device was reprogrammed, the values as [...]
--- OUTSIDE RECORDS SUMMARY | 2025-01-01 09:04 | XMS_ITS | Clinical Summary ---
Author Organization [facility] Address [address] [place] [address] Care Team Providers Care Company Laborer Name Role Phone Cosme Davis MD Primary [...] Insurance MEDICARE A & B Care Teams Company Laborer Relationship Specialty Start Date End Date Cosme Davis MD [address] [facility] [address] ATTN: [place] [address] PCP - General Emergency Medicine 06/04/18
--- OUTSIDE RECORDS SUMMARY | 2025-01-01 09:04 | XMS_ITS | Encounter Summary ---
Author Organization [employer] ([place], [place], [place], [place], [place]) Address [address] [place] [address] Care Team Providers Care Coordinator Hotels Name Role Phone Unavailable Primary Care Provider Unavailabl e Encounter Details Date Type Department Care Team (Late st Contact Info) Description 03/27/2018 Transcribed Document [facility] [place] Family Medicine [facility] [place] [address] ProviderZion MD [address] [place] [address] Social History Tobacco Use Types [...] - Historical ProviderMD - 03/27/2018 2:54 PM TILE BURNER Care Management Assessment/Plan Entered On: 03/27/2018 15:00 [...] dtr in agreement and referrlas made via [facility] to the following counties.... [place] [...]
--- OUTSIDE RECORDS SUMMARY | 2025-01-01 09:04 | XMS_ITS | Encounter Summary ---
Author Organization [employer] ([place], [place], [place], [place], [place]) Address [address] [place] [address] Care Team Providers Care Bulk Station Agent Name Role Phone Unavailable Primary Care Provider Unavailabl e Encounter Details Date Type Department Care Team (Late st Contact Info) Description 03/26/2018 Transcribed Document [facility] [place] [facility] [place] [address] ProviderZion MD [address] [place] [phone] Social History Tobacco Use Types Packs/Day Years Used Date Smoking Tobacco: Never Assessed Comments Unknown Sex and Gender Information Value Date Recorded Sex Assigned at Not on file Legal Sex Female 4:39 PM CDT Gender Identity Not on file Sexual Orientation Not on file documented as of this encounter Miscellaneous Notes * Cerner Conversion Note - Zion Alonso MD - 03/26/2018 10:05 AM LICENSED CLINICIAN Patient: ETHAN CRONIN Age: 57 years Sex: Female : 1960 Associated Diagnoses: None Author: CARROLL HIGH MD-INF Basic Information CC: Sepsis bacteremia 03/19/18 4/4 bottles for Group b strep ([facility]) History of Present Illness 57-year-old white female with history of bladder cancer, atrial flutter, pacemaker placement 2016, hypertension, DM2, COPD, pancreatitis, who recently had blood cultures obtained at [facility] on 03/19/18 for fever which were positive in 4 out of 4 bottles for group B Streptococcus. Patient was to start IV antibiotics but was found to have bradycardia and was admitted to [facility] on 03/23/17. I was consulted on 03/25/17. The patient had been started on vancomycin and Rocephin. Urine culture obtained at [facility] was positive for multiple bacteria [...] cefTRIAXone (Rocephin) - 2 Gram, IV Piggyback, [id number], infuse over 30 Minute(s), Routine Anticoagulant heparin [...] Normal strength, No tenderness. Integumentary: Warm, Dry, [place], No pallor, No rash, Left chest wall [...] 10) Troponin <0.015 (FEB 10) , ACC: [id number] ORDER: Culture Blood DATE: 03/23/2018 17:49 SOURCE: Blood SITE: Reports Pre 03/25/2018 23:01 No growth at 2 days. Pre 03/24/2018 23:02 No growth at 1 day. Pre 03/24/2018 16:03 Culture less than 24 Hrs old == ACC: [id number] ORDER: Culture Blood DATE: 03/23/2018 17:49 SOURCE: Blood SITE: Reports Pre 03/25/2018 23:01 No growth at 2 days. Pre 03/24/2018 23:02 No growth at 1 day. Pre 03/24/2018 16:03 Culture less than 24 Hrs old == . Procedure Critical Care - Code Management Assessment: Radiology Results (Last 48 hours) [id number] -- 03/23/2018 17:08 CT Abdomen Pelvis WO [...] of 4 blood culture bottles positive at [facility] (spoke to Maurice Spencer, at [facility]). The high-grade bacteremia suggests intravascular source [...]
--- OUTSIDE RECORDS SUMMARY | 2025-01-01 09:04 | XMS_ITS | Encounter Summary ---
Author Organization [employer] ([place], [place], [place], [place], [place]) Address [address] [place] [address] Care Team Providers Care Industrial Electrician Name Role Phone Unavailable Primary Care Provider Unavailabl e Encounter Details Date Type Department Care Team (Late st Contact Info) Description 03/26/2018 Transcribed Document [facility] [place] Family Medicine [address] [place] [address] ProviderZion MD [address] [place] [address] Social History Tobacco Use Types Packs/Day Years Used Date Smoking Tobacco: Never Assessed Comments Unknown Sex and Gender Information Value Date Recorded Sex Assigned at Not on file Legal Sex Female 4:39 PM CDT Gender Identity Not on file Sexual Orientation Not on file documented as of this encounter Miscellaneous Notes * Cerner Conversion Note - Historical ProviderMD - 03/26/2018 10:40 AM HARD HAT DIVER Patient: ETHAN LOREDO Age: 57 Years Sex: [...]
--- OUTSIDE RECORDS SUMMARY | 2025-01-01 09:04 | XMS_ITS | Encounter Summary ---
Author Organization [employer] ([place], [place], [place], [place], [place]) Address [address] [place] [address] Care Team Providers Care Wallpaper Inspector Name Role Phone Unavailable Primary Care Provider Unavailabl e Encounter Details Date Type Department Care Team (Late st Contact Info) Description 03/24/2018 Transcribed Document [facility] [place] [address] [place] [address] ProviderZion MD [address] [place] [address] Social History Tobacco Use [...] - Historical ProviderMD - 03/24/2018 3:32 PM NIGHT WORKER Event Note Entered On: 03/24/2018 15:32 EST [...]
--- OUTSIDE RECORDS SUMMARY | 2025-01-01 09:04 | XMS_ITS | Encounter Summary ---
Author Organization [employer] ([place], [place], [place], [place], [place]) Address [address] [place] [address] Care Team Providers Care Industrial Chemistry Teacher Name Role Phone Unavailable Primary Care Provider Unavailabl e Encounter Details Date Type Department Care Team (Late st Contact Info) Description 03/28/2018 Transcribed Document [facility] [place] [address] [place] [address] ProviderZion MD [address] [place], [place] [id number] Social History Tobacco Use Types Packs/Day Years Used Date Smoking Tobacco: Never Assessed Comments Unknown Sex and Gender Information Value Date Recorded Sex Assigned at Not on file Legal Sex Female 4:39 PM CDT Gender Identity Not on file Sexual Orientation Not on file documented as of this encounter Miscellaneous Notes * Cerner Conversion Note - Historical ProviderMD - 03/28/2018 3:56 PM YEAST DISTILLER Care Management Assessment/Plan Entered On: 03/28/2018 16:01 EST Performed On: 03/28/2018 15:56 EST by Ninoska Cuellar Rn-Application Design Engineer Ed Care Management Note Anticipated Discharge Date [...] Care Management Note Report : Ninoska Cuellar Rn-Application Design Engineer Ed - 03/28/18 14:57:29 Called [facility] and spoke with Chiquita and updated her on IV abx needs. SHe will check cost and call CM back to see if bed offer is still on the table. CM left for [facility] with [facility] to update her, left requesting return phone call. CM updated pt and she appears discouraged that [facility] will not accept her as a pt. She tells CM that she is considering just going home. CM also called Clem with [facility] to argueta abx at home. She states that [facility] may also be able to contract with facility to provide them with abx at their cost. CM faxed info on pt and abx to [facility] f [phone]. CM updated BS RN, Ava. CM will cont to follow. Ninoska Cuellar, Rn-Application Design Engineer Ed - 03/28/18 14:21:[address] Jones this and he tells CM that pt is ready for discharge from his standpoint and that ID has a plan in place for IV abx. PT does have a PICC in place. Recieved VM from [facility] with [facility] p [phone] stating they are interested in pt. CM went to BS to speak with pt to discuss bed offers. CM presented bed offers and pt tells CM that she really doesn't want to go to another facility. Pt tells CM that she only wants to go to [facility], as she has been there in the past. [facility] had not make bed offer at this time. BLAKE called and spoke with Gama in admissions at [facility] and she tells CM that per her DON, they do not believe they can meet pt's needs at this time. BLAKE pressed for more information and Gama told CM that she would have DON call her. -BLAKE then spoke with MADELYN Corona at [facility] and she states that pt appears too sick at this time to come to their facility. BLAKE provided her with verbal updates, as well as faxed updates f [phone]. She states they will reevaluate now, knowing abx needs. She asked for bld cx results and CM called microbiology dept and was told that bld cx x2 from 03/23 were still negative, but would not be complete until this evening. CM informed facility of this information. CM then recieved callback from [facility] with admissions who states after rereview, they will not be able to take pt at this time due to the $7455-8303 IV rocephin cost through 05/04/[address] Diaz orders. Cm to follow for ongoing d/c planning/needs. Stew Porras, RN - 03/27/18 16:25:12 blayne from [facility] ([phone] ex [phone]) called to make bed offer. bed offers will be presented to pt 03/28. dtr will provide transportation[facility] [phone] Stew Porras, REGULO - 03/27/18 15:00:29 spoke to ID who states pt maybe ready for dc as early as 03/28. id and attending PA are recommending SNF. spoke with pt and her dtr, jazmine and informed them of suggestion from drs to dc to snf for iv abx. pt and dtr in agreement and referrlas made via [facility] to the following [place].... [place]. Stew Porras, REGULO - 03/27/18 10:34:34 RRS-43 + for BROCK CT consulted and per ID, infection must clear prior to any ant surgical intervention Currnelty on rocephin iv w/bld cx pending Documentation Status Complete : Yes Ninoska Cuellar, Rn-Application Design Engineer Ed - 03/28/2018 15:56 EST documented in this encounter Plan of Treatment Not on file documented as of this encounter Visit Diagnoses Not on filedocumented in this encounter
--- OUTSIDE RECORDS SUMMARY | 2025-01-01 09:04 | XMS_ITS | Clinical Summary ---
Author Organization [employer] ([place], [place], [place], [place], [place]) Address [address] [place] [address] Care Team Providers Care Nursing Faculty Name Role Phone Unavailable Primary Care Provider [...]
--- OUTSIDE RECORDS SUMMARY | 2025-01-01 09:04 | XMS_ITS | Encounter Summary ---
Author Organization [employer] ([place], [place], [place], [place], [place]) Address [address] [place] [address] Care Team Providers Care Steel Wool Machine Operator Name Role Phone Unavailable Primary Care Provider Unavailabl e Encounter Details Date Type Department Care Team (Late st Contact Info) Description 03/28/2018 Transcribed Document [facility] [place] Medicine [facility] [place] [address] ProviderZion MD [address] [place] [id number] Social History Tobacco Use Types Packs/Day Years Used Date Smoking Tobacco: Never Assessed Comments Unknown Sex and Gender Information Value Date Recorded Sex Assigned at Not on file Legal Sex Female 4:39 PM CDT Gender Identity Not on file Sexual Orientation Not on file documented as of this encounter Miscellaneous Notes * Cerner Conversion Note - Zion ProviderMD - 03/28/2018 7:46 AM RECORDS SUPERVISOR Patient: ETHAN LOREDO Age: 57 years Sex: [...] Rocephin: 2 Gram, 100 mL/Hr, IV Piggyback, [id number] Tylenol: 650 mg, Oral, Q4H, PRN: Other [...] of motion, Normal strength. Integumentary: Warm, Dry, [place]. Neurologic: Alert, Oriented. Psychiatric: Cooperative, Appropriate [...] in 4-[address] Marcano at [facility]. 03/27/18 Options discussed with pt-Definitive Rx would require redo-MV sugery/device explant-reimplant. Surgical risk is high given severe carotid dx. Conservative initial Rx w/ repeat BROCK in 4-6 is reasonable option. CTS to see/EP following. Continue current CV meds. Add Plavix if no surgery. Electronically signed by Jorge Alberto, [facility] Conversion Application Support Lead Cerner at 05/29/2022 8:35 PM CDT documented in this encounter Plan of Treatment Not on file documented as of this encounter Visit Diagnoses Not on filedocumented in this encounter
--- OUTSIDE RECORDS SUMMARY | 2025-01-01 09:04 | XMS_ITS | Encounter Summary ---
Author Organization [employer] ([place], [place], [place], [place], [place]) Address [address] [place] [address] Care Team Providers Care Soda Dialyzer Name Role Phone Unavailable Primary Care Provider Unavailabl e Encounter Details Date Type Department Care Team (Late st Contact Info) Description 03/25/[address] [facility] [place] Family Medicine [address] [place] [address] ProviderZion MD [address] [place], [place] [id number] Social History Tobacco Use Types Packs/Day Years Used Date Smoking Tobacco: Never Assessed Comments Unknown Sex and Gender Information Value Date Recorded Sex Assigned at Not on file Legal Sex Female 4:39 PM CDT Gender Identity Not on file Sexual Orientation Not on file documented as of this encounter Miscellaneous Notes * Cerner Conversion Note - Historical ProviderMD - 03/25/2018 2:00 AM METAL FURNITURE REPAIRER Surveyor Helper Details Entered On: 03/25/2018 4:05 EST Performed [...]
--- OUTSIDE RECORDS SUMMARY | 2025-01-01 09:04 | XMS_ITS | Encounter Summary ---
Author Organization [employer] ([place], [place], [place], [place], [place]) Address [address] [place] [address] Care Team Providers Care Steel Manager Name Role Phone Unavailable Primary Care Provider Unavailabl e Encounter Details Date Type Department Care Team (Late st Contact Info) Description 03/27/2018 Transcribed Document [facility] [place] Family Medicine [address] [place] [address] ProviderZion MD [address] [place] [address] Social History Tobacco Use Types [...] - Historical ProviderMD - 03/27/2018 5:00 AM SOUND EQUIPMENT MECHANIC Chart Check - Review Order Profile Entered On: 03/27/2018 5:00 EST Performed On: 03/27/2018 5:00 EST by Gabriela Reyes RN Chart Check Chart Reviewed Date and Time : 03/27/2018 5:05 EST Powerplans Initiated/Discontinued as Appropriate : Yes All Active Orders Reviewed : Yes Gabriela Reyes, REGULO - 03/27/2018 5:00 EST Electronically signed by Vinayak Azul Conversion Shift Superintendent [employer] Cerner at 05/29/2022 8:44 PM CDT documented in this encounter Plan of Treatment Not on file documented as of this encounter Visit Diagnoses Not on filedocumented in this encounter
--- OUTSIDE RECORDS SUMMARY | 2025-01-01 09:04 | XMS_ITS | Encounter Summary ---
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 SHe will check cost and call CM back to see if bed offer is still on the table. CM left VM for She[facility] with [facility] to update her, left requesting return phone call. CM updated pt and she appears discouraged that [facility] will not accept her as a pt. She tells CM that she is considering just going home. BLAKE also called Clem with [facility] to argueta abx at home. She states that [facility] may also be able to contract with facility to provide them with abx at their cost. CM faxed info on pt and abx to [facility] f [phone]. CM updated BS RN, Ava. CM will cont to follow. Care Management Note Report : Ninoska Cuellar, Rn-Anesthesiology Tech Ed - 03/28/18 14:21:[address] Jones this am and he tells CM that pt is ready for discharge from his standpoint and that ID has a plan in place for IV abx. PT does have a PICC in place. Recieved VM from [facility] with [facility] p [phone] stating they are interested in pt. CM went to BS to speak with pt to discuss bed offers. CM presented bed offers and pt tells CM that she really doesn't want to go to another facility. Pt tells CM that she only wants to go to [facility], as she has been there in the past. [facility] had not make bed offer at this time. CM called and spoke with Gama in admissions at [facility] and she tells CM that per her DON, they do not believe they can meet pt's needs at this time. CM pressed for more information and Gama told CM that she would have DON call her. -CM then spoke with MADELYN Corona at [facility] and she states that pt appears too sick at this time to come to their facility. CM provided her with verbal updates, as well as faxed updates f [phone]. She states they will reevaluate now, knowing [...] pt at this time due to the $6656-5679 IV rocephin cost through 05/04/[address] Diaz orders. Cm to follow for ongoing d/c planning/needs. Stew Porras, RN - 03/27/18 16:25:12 blayne from [facility] ([phone] ex [phone]) called to make bed offer. bed offers will be presented to pt 03/28. [facility] [phone] Stew Porras, RN - 03/27/18 15:00:29 spoke to ID who states pt maybe ready for dc as early as 03/28. id and attending PA are recommending SNF. spoke with pt and her dtr, jazmine and informed them of suggestion from drs to dc to snf for iv abx. pt and dtr in agreement and referrlas made via [facility] to the following [place].... [place]. Stew Porras, RN - 03/27/18 10:34:34 RRS-43 + for BROCK CT consulted and per ID, infection must clear prior to any ant surgical intervention Currnelty on rocephin iv w/bld cx pending Documentation Status Complete : Yes Ninoska Cuellar, Rn-Anesthesiology Tech Ed - 03/28/2018 14:27 EST documented in this encounter Plan of Treatment Not on file documented as of this encounter Visit Diagnoses Not on filedocumented in this encounter
--- OUTSIDE RECORDS SUMMARY | 2025-01-01 09:04 | XMS_ITS | Data Portability ---
Author Organization [facility] Address [address] [place] [address] Assessment Encounter Date Assessment Date Assessment LastModified [...] recorded. Lab drug screen, urine 2024 025 [facility], [address] [facility], [place], [address], 5 18:12:43 TSH + free T4, serum 2024 025 [facility], [address], [place], [place], [address], 5 14:15:06 cobalamin and folate panel, serum 2024 025 [facility], [address], [place], [place], [address], 5 14:15:09 CBC w/ auto diff 2024 025 [facility], [address], [place], [place], [address], 5 09:56:34 CMP, serum or plasma 2024 025 [facility], [address], [place], [place], [address], 5 14:15:07 HbA1c (hemoglobin A1c), blood 2024 025 [facility], [address], [place], [place], [address], 5 14:15:09 lipid panel, serum 2024 025 [facility], [address], [place], [place], [address], 5 14:15:08 TSH + free T4, serum 2024 025 [facility], [address], [place], [place], [address], 5 17:07:34 CMP, serum or plasma 2024 025 [facility], [address], [place], [place], [address], 5 17:07:35 CBC w/ auto diff 2024 025 [facility], [address], [place], [place], [address], 5 17:07:34 BNP (B-type natriuretic peptide), serum or plasma 2024 025 [facility], [address], [place], [place], [address], 5 17:07:36 Referral wound care referral - nurse to start wound care on stage 1 to buttocks-pt is already in care with home health 2024 025 [facility], [address] [place] [address], [address], 08:26:07 Procedures None recorded. Surgeries None recorded. Imaging XR, chest, 2 view 2024 025 [facility] ([facility]), [address], [place], [address], 5 14:20:52 Medication Orders Miralax 17 gram/dose oral powder 2024 025 [facility], [address] [place] [address] 27 [address], [place], [id number], 5 17:15:19 alprazolam 0.5 mg tablet 2024 025 [facility], [address] [place] [address] S, [place], [id number], 5 12:00:52 fluconazole 100 mg tablet 2024 025 [facility], [address] [place] [address], [address], 5 05:01:51 nystatin 100,000 unit/gram topical powder 2024 025 [facility], [address] [place] [address], [address], 5 14:43:23 alprazolam 0.5 mg tablet 2024 025 [facility], [address] [place] [address] 27 S, [place], [id number], 5 14:43:24 penicillin V potassium 250 mg tablet 2024 025 [facility], [address] [place] [address] 27 S, [place], [id number], 14:14:33 Patient TargetsNo targets recorded. Patient Instructions Encounter Date Encounter Id Patient Instructions Last Modified By Organization Details Last Modified Time 08/11/2024 [id number] body mass index: care instructions rebel Not [...] Order ing Provi oscar: Elisha Beckham n DUST COLLECTOR TREATER Not Available [address] , [place], [address], 03/27/2024 17:28:40 03/27/19 25 03/27/2024 CBC W/AUT O DIFFE RENTI AL white blood cell 8.3 10e3/ uL 4.5-13 .0 normal Not Available [address] [place], [place], [address], 03/27/2024 17:28:40 03/27/19 25 03/27/2024 CBC W/AUT O DIFFE RENTI AL red blood cell 3.06 10e6/ uL 3.80-5 .10 low Not Available [place] [address], [place], [address], 03/27/2024 17:28:40 03/27/19 25 03/27/2024 CBC W/AUT O DIFFE RENTI AL hemoglobin 9.0 g/dL 11.5-1 5.3 low Not Available [address] , [place], [address], 03/27/2024 17:28:40 03/27/19 25 03/27/2024 CBC W/AUT O DIFFE RENTI AL hematocrit 29.5 % 34.0-4 6.0 low Not Available [address] [place], [place], [address], 03/27/2024 17:28:40 03/27/19 25 03/27/2024 CBC W/AUT O DIFFE RENTI AL mean cell volume 96 fL 78.0-9 8.0 normal Not Available [address] [place], [place], [address], 03/27/2024 17:28:40 03/27/19 25 03/27/2024 CBC W/AUT O DIFFE RENTI AL mean cell HGB 29.4 pg 25.0-3 5.0 normal Not Available [address] , [place], [address], 03/27/2024 17:28:40 03/27/19 25 03/27/2024 CBC W/AUT O DIFFE RENTI AL mean cell HGB concentratio n 30.5 g/dL 31.0-3 6.0 low Not Available [address] [place], [place], [address], 03/27/2024 17:28:40 03/27/19 25 03/27/2024 CBC W/AUT O DIFFE RENTI AL red cell distribution width 18.6 % 11.0-1 5.0 high Not Available [address] [place], [place], [address], 03/27/2024 17:28:40 03/27/19 25 03/27/2024 CBC W/AUT O DIFFE RENTI AL platelet count 316 10e3/ uL 150-40 0 normal Not Available [address] [place], [place], [address], 03/27/2024 17:28:40 03/27/19 25 03/27/2024 CBC W/AUT O DIFFE RENTI AL immature granulocyte % 2 0-1 high Not Available [address] , [place], [address], 03/27/2024 17:28:40 03/27/19 25 03/27/2024 CBC W/AUT O DIFFE RENTI AL neutrophil % 71 % 35-75 normal Not Available [address] , [place], [address], 03/27/2024 17:28:40 03/27/19 25 03/27/2024 CBC W/AUT O DIFFE RENTI AL lymphocyte % 19 % 10-50 normal Not Available [address] , [place], [address], 03/27/2024 17:28:40 03/27/19 25 03/27/2024 CBC W/AUT O DIFFE RENTI AL monocyte % 5 % 0-15 normal Not Available [address] , [place], [address], 03/27/2024 17:28:40 03/27/19 25 03/27/2024 CBC W/AUT O DIFFE RENTI AL eosinophil % 2 % 0-5 normal Not Available [address] , [place], [address], 03/27/2024 17:28:40 03/27/19 25 03/27/2024 CBC W/AUT O DIFFE RENTI AL basophil % 1 % 0-5 normal Not Available [address] [place], [place], [address], 03/27/2024 17:28:40 03/27/19 25 03/27/2024 CBC W/AUT O DIFFE RENTI AL immature granulocyte # 0.13 x1000 /uL 0-0.05 high Not Available [address] [place], [place], [address], 03/27/2024 17:28:40 03/27/19 25 03/27/2024 CBC W/AUT O DIFFE RENTI AL neutrophil # 5.92 x1000 /uL 1.50-8 .00 normal Not Available [address] [place], [place], [address], 03/27/2024 17:28:40 03/27/19 25 03/27/2024 CBC W/AUT O DIFFE RENTI AL lymphocyte # 1.55 x1000 /uL 1.20-5 .20 normal Not Available [address] [place], [place], [address], 03/27/2024 17:28:40 03/27/19 25 03/27/2024 CBC W/AUT O DIFFE RENTI AL monocyte # 0.45 x1000 /uL 0.40-0 .90 normal Not Available [address] [place], [place], [address], 03/27/2024 17:28:40 03/27/19 25 03/27/2024 CBC W/AUT O DIFFE RENTI AL eosinophil # 0.18 x1000 /uL 0.00-0 .50 normal Not Available [address] [place], [place], [address], 03/27/2024 17:28:40 03/27/19 25 03/27/2024 CBC W/AUT O DIFFE RENTI AL basophil # 0.07 x1000 /uL 0.00-0 .30 normal Not Available [address] [place], [place], [address], 03/27/2024 17:28:40 03/27/19 25 03/27/2024 CBC W/AUT O DIFFE RENTI AL NRBC automated 0.0 /100_ WBC Not Available [address] [place], [place], [address], 03/27/2024 17:28:40 03/27/19 25 03/27/2024 CBC W/AUT O DIFFE KEELEY AL performing lab see note - [address] [facility] [address] Not Available [address] , [place], [address], 03/27/2024 17:28:40 03/27/19 25 03/27/2024 COMP METAB OLIC PANEL note See Note Order ing Provi oscar: Eugon da Fryma n DUST COLLECTOR TREATER Not Available [address] , [place], [address], 03/27/2024 17:32:51 03/27/19 25 03/27/2024 COMP METAB OLIC PANEL sodium 137 mmol/ L 136-14 5 normal Not Available [address] , [place], [address], 03/27/2024 17:32:51 03/27/19 25 03/27/2024 COMP METAB OLIC PANEL potassium 5.0 mmol/ L 3.5-5. 1 normal Not Available [address] , [place], [address], 03/27/2024 17:32:51 03/27/19 25 03/27/2024 COMP METAB OLIC PANEL chloride 103 mmol/ L 98-107 normal Not Available [address] , [place], [address], 03/27/2024 17:32:51 03/27/19 25 03/27/2024 COMP METAB OLIC PANEL carbon dioxide 24 mmol/ L 24-33 normal Not Available [address] [place], [address], 03/27/2024 17:32:51 03/27/19 25 03/27/2024 COMP METAB OLIC PANEL anion gap 15.0 mmol/ L 10-20 normal Not Available [address] , [place], [address], 03/27/2024 17:32:51 03/27/19 25 03/27/2024 COMP METAB OLIC PANEL glucose 148 mg/dL 70-99 high Not Available [address] [place], [address], 03/27/2024 17:32:51 03/27/19 25 03/27/2024 COMP METAB OLIC PANEL blood urea nitrogen 61 mg/dL 7-18 high Not Available [address] [place], [address], 03/27/2024 17:32:51 03/27/19 25 03/27/2024 COMP METAB OLIC PANEL creatinine 2.72 mg/dL 0.55-1 .02 high Not Available [address] , [place], [address], 03/27/2024 17:32:51 03/27/19 25 03/27/2024 COMP METAB [...] care of your patie nt. Not Available [address] , [place], [address], 03/27/2024 17:32:51 03/27/19 25 03/27/2024 COMP METAB OLIC PANEL BUN/creatini ne ratio 22 12-20 high Not Available [address] [place], [place], [address], 03/27/2024 17:32:51 03/27/19 25 03/27/2024 COMP METAB OLIC PANEL total protein 6.8 g/dL 6.4-8. 2 normal Not Available [address] [place], [place], [address], 03/27/2024 17:32:51 03/27/19 25 03/27/2024 COMP METAB OLIC PANEL albumin 3.3 g/dL 3.4-5. 0 low Not Available [address] [place], [address], 03/27/2024 17:32:51 03/27/19 25 03/27/2024 COMP METAB OLIC PANEL globulin 3.5 g/dL 1.5-4. 0 normal Not Available [address] [place], [address], 03/27/2024 17:32:51 03/27/19 25 03/27/2024 COMP METAB OLIC PANEL albumin/glob ulin ratio 0.9 0.5-2. 0 normal Not Available [address] [place], [address], 03/27/2024 17:32:51 03/27/19 25 03/27/2024 COMP METAB OLIC PANEL calcium 9.2 mg/dL 8.5-10 .1 normal Not Available [address] [place], [address], 03/27/2024 17:32:51 03/27/19 25 03/27/2024 COMP METAB OLIC PANEL osmolality serum calculated 293 mOsm/ kg 272-28 8 high Not Available [address] [place], [address], 03/27/2024 17:32:51 03/27/19 25 03/27/2024 COMP METAB OLIC PANEL bilirubin total 0.4 mg/dL 0.2-1. 0 normal Use of this assay is not recom godwin d for patie nts under going treat ment with Eltro mbopa g due to the poten tial for false ly eleva anthony resul ts. Not Available [address] [place], [address], 03/27/2024 17:32:51 03/27/19 25 03/27/2024 COMP METAB OLIC PANEL SGOT/AST 14 U/L 15-37 low Not Available [address] [place], [address], 03/27/2024 17:32:51 03/27/19 25 03/27/2024 COMP METAB OLIC PANEL SGPT/ALT 15 U/L 14-59 normal Not Available [address], [place], [address], 03/27/2024 17:32:51 03/27/19 25 03/27/2024 COMP METAB OLIC PANEL alkaline phosphatase total 93 U/L 46-116 normal Not Available [address] , [place], [address], 03/27/2024 17:32:51 03/27/19 25 03/27/2024 COMP METAB OLIC PANEL performing lab see note [facility] [address] [facility] [address] Not Available [address] , [place], [address], 03/27/2024 17:32:51 03/27/19 25 03/27/2024 MAGNE SIUM note See Note Order ing Provi oscar: Elisha Santosa n DUST COLLECTOR TREATER Not Available [address] [place], [place], [address], 03/27/2024 17:32:52 03/27/19 25 03/27/2024 MAGNE SIUM magnesium 2.3 mg/dL 1.8-2. 4 normal Not Available [address] , [place], [address], 03/27/2024 17:32:52 03/27/19 25 03/27/2024 MAGNE SIUM performing lab see note ML - [facility] [address] [facility] [address] Not Available [address] , [place], [address], 03/27/2024 17:32:52 04/16/19 25 04/15/2024 TSH+F REE T4 TSH 12.100 uIU/m L 0.450- 4.500 above high normal Not Available [facility] ([facility]) [address] [facility], [place], [address], 04/15/2024 17:07:34 04/16/19 25 04/15/2024 TSH+F REE T4 T4,free(dire ct) 1.14 NG/dL 0.82-1 .77 normal Not Available [facility] ([facility]) [address] [place], [address], 04/15/2024 17:07:34 04/16/19 25 04/15/2024 CBC WITH DIFFE RENTI AL/PL ATELE T WBC 7.4 x10e3 /uL 3.4-10 .8 normal Not Available [facility] ([facility]) [address] [place], [address], 04/15/2024 17:07:34 04/16/19 25 04/15/2024 CBC WITH DIFFE RENTI AL/PL ATELE T RBC 3.02 x10e6 /uL 3.77-5 .28 below low normal Not Available [facility] ([facility]) [address] [place], [address], 04/15/2024 17:07:34 04/16/19 25 04/15/2024 CBC WITH DIFFE RENTI AL/PL ATELE T hemoglobin 8.6 g/dL 11.1-1 5.9 below low normal Not Available [facility] ([facility]) [address] [place], [address], 04/15/2024 17:07:34 04/16/19 25 04/15/2024 CBC WITH DIFFE RENTI AL/PL ATELE T hematocrit 28.6 % 34.0-4 6.6 below low normal Not Available [facility] ([facility]) [address] [place], [address], 04/15/2024 17:07:34 04/16/19 25 04/15/2024 CBC WITH DIFFE RENTI AL/PL ATELE T MCV 95 fL 79-97 normal Not Available [facility] ([facility]) [address] [facility], [place], [address], 04/15/2024 17:07:34 04/16/19 25 04/15/2024 CBC WITH DIFFE RENTI AL/PL ATELE T MCH 28.5 pg 26.6-3 3.0 normal Not Available [facility] ([facility]) [address] [facility], [place], [address], 04/15/2024 17:07:34 04/16/19 25 04/15/2024 CBC WITH DIFFE RENTI AL/PL ATELE T MCHC 30.1 g/dL 31.5-3 5.7 below low normal Not Available [facility] ([facility]) [address] [facility], [place], [address], 04/15/2024 17:07:34 04/16/19 25 04/15/2024 CBC WITH DIFFE RENTI AL/PL ATELE T RDW 16.1 % 11.7-1 5.4 above high normal Not Available [facility] ([facility]) [address] [facility], [place], [address], 04/15/2024 17:07:34 04/16/19 25 04/15/2024 CBC WITH DIFFE RENTI AL/PL ATELE T platelets 248 x10e3 /uL 150-45 0 normal Not Available [facility] ([facility]) [address] [place], [address], 04/15/2024 17:07:34 04/16/19 25 04/15/2024 CBC WITH DIFFE RENTI AL/PL ATELE T neutrophils 72 % not estab. normal Not Available [facility] ([facility]) [address] [place], [address], 04/15/2024 17:07:34 04/16/19 25 04/15/2024 CBC WITH DIFFE RENTI AL/PL ATELE T lymphs 16 % not estab. normal Not Available [facility] ([facility]) [address] [place], [address], 04/15/2024 17:07:34 04/16/19 25 04/15/2024 CBC WITH DIFFE RENTI AL/PL ATELE T monocytes 7 % not estab. normal Not Available [facility] ([facility]) [address] [facility], [place], [address], 04/15/2024 17:07:34 04/16/19 25 04/15/2024 CBC WITH DIFFE RENTI AL/PL ATELE T eos 4 % not estab. normal Not Available [facility] ([facility]) [address] [facility], [place], [address], 04/15/2024 17:07:34 04/16/19 25 04/15/2024 CBC WITH DIFFE RENTI AL/PL ATELE T basos 1 % not estab. normal Not Available [facility] ([facility]) [address] [facility], [place], [address], 04/15/2024 17:07:34 04/16/19 25 04/15/2024 CBC WITH DIFFE RENTI AL/PL ATELE T immature cells PROJECT INTERN Not Available [facility]) [address] [place], [address], 04/15/2024 17:07:34 04/16/19 25 04/15/2024 CBC WITH DIFFE RENTI AL/PL ATELE T neutrophils (absolute) 5.4 x10e3 /uL 1.4-7. 0 normal Not Available [facility] ([facility]) [address] [place], [address], 04/15/2024 17:07:34 04/16/19 25 04/15/2024 CBC WITH DIFFE RENTI AL/PL ATELE T lymphs (absolute) 1.2 x10e3 /uL 0.7-3. 1 normal Not Available [facility] ([facility]) [address] [place], [address], 04/15/2024 17:07:34 04/16/19 25 04/15/2024 CBC WITH DIFFE RENTI AL/PL ATELE T monocytes(ab solute) 0.5 x10e3 /uL 0.1-0. 9 normal Not Available [facility] ([facility]) [address] [facility], [place], [address], 04/15/2024 17:07:34 04/16/19 25 04/15/2024 CBC WITH DIFFE RENTI AL/PL ATELE T eos (absolute) 0.3 x10e3 /uL 0.0-0. 4 normal Not Available [facility] ([facility]) [address] [facility], [place], [address], 04/15/2024 17:07:34 04/16/19 25 04/15/2024 CBC WITH DIFFE RENTI AL/PL ATELE T baso (absolute) 0.1 x10e3 /uL 0.0-0. 2 normal Not Available [facility] ([facility]) [address] [facility], [place], [address], 04/15/2024 17:07:34 04/16/19 25 04/15/2024 CBC WITH DIFFE RENTI AL/PL ATELE T immature granulocytes 0 % not estab. Not Available [facility] ([facility]) [address] [place], [address], 04/15/2024 17:07:34 04/16/19 25 04/15/2024 CBC WITH DIFFE RENTI AL/PL ATELE T immature grans (abs) 0.0 x10e3 /uL 0.0-0. 1 Not Available [facility] ([facility]) [address] [facility], [place], [address], 04/15/2024 17:07:34 04/16/19 25 04/15/2024 CBC WITH DIFFE RENTI AL/PL ATELE T NRBC PROJECT INTERN Not Available [facility] ([facility]) [address] [facility], [place], [address], 04/15/2024 17:07:34 04/16/19 25 04/15/2024 CBC WITH DIFFE KEELEY AL/PARTHA Gomez hematology comments: PROJECT INTERN Not Available [facility]) [address] [facility], [place], [address], 04/15/2024 17:07:34 04/16/19 25 04/15/2024 COMP. METAB OLIC PANEL (14) glucose 111 mg/dL 70-99 above high normal Not Available [facility] ([facility]) [address] [facility] [place], [address], 04/15/2024 17:07:35 04/16/19 25 04/15/2024 COMP. METAB OLIC PANEL (14) BUN 41 mg/dL 8-27 above high normal Not Available [facility] ([facility]) [address] [facility], [place], [address], 04/15/2024 17:07:35 04/16/19 25 04/15/2024 COMP. METAB OLIC PANEL (14) creatinine 2.15 mg/dL 0.57-1 .00 above high normal Not Available [facility] ([facility]) [address] [facility], [place], [address], 04/15/2024 17:07:35 04/16/19 25 04/15/2024 COMP. METAB OLIC PANEL (14) eGFR 26 mL/mi n/1.7 3 >59 below low normal Not Available [facility] ([facility]) [address] [facility] [place], [address], 04/15/2024 17:07:35 04/16/19 25 04/15/2024 COMP. METAB OLIC PANEL (14) BUN/creatini ne ratio 19 12-28 normal Not Available [facility]) [address] [facility] [place], [address], 04/15/2024 17:07:35 04/16/19 25 04/15/2024 COMP. METAB OLIC PANEL (14) sodium 140 mmol/ L 134-14 4 normal Not Available [facility] ([facility]) [address] [place], [address], 04/15/2024 17:07:35 04/16/19 25 04/15/2024 COMP. METAB OLIC PANEL (14) potassium 5.1 mmol/ L 3.5-5. 2 normal Not Available [facility] ([facility]) [address] [facility] [place], [address], 04/15/2024 17:07:35 04/16/19 25 04/15/2024 COMP. METAB OLIC PANEL (14) chloride 110 mmol/ L 96-106 above high normal Not Available [facility] ([facility]) [address] [place], [address], 04/15/2024 17:07:35 04/16/19 25 04/15/2024 COMP. METAB OLIC PANEL (14) carbon dioxide, total TNP mmol/ L Test not perfo rmed. Due to a lack of repro ducib ility with this patie nt sampl e, a valid resul t could not be obtai josé miguel. Not Available [facility] ([facility]) [address] [place], [address], 04/15/2024 17:07:35 04/16/19 25 04/15/2024 COMP. METAB OLIC PANEL (14) calcium 8.6 mg/dL 8.7-10 .3 below low normal Not Available [facility] ([facility]) [address] [place], [address], 04/15/2024 17:07:35 04/16/19 25 04/15/2024 COMP. METAB OLIC PANEL (14) protein, total 6.1 g/dL 6.0-8. 5 normal Not Available [facility] ([facility]) [address] [place], [address], 04/15/2024 17:07:35 04/16/19 25 04/15/2024 COMP. METAB OLIC PANEL (14) albumin 3.6 g/dL 3.9-4. 9 below low normal Not Available [facility] ([facility]) [address] [facility] [place], [address], 04/15/2024 17:07:35 04/16/19 25 04/15/2024 COMP. METAB OLIC PANEL (14) globulin, total 2.5 g/dL 1.5-4. 5 Not Available [facility] ([facility]) [address] [facility] [place], [address], 04/15/2024 17:07:35 04/16/19 25 04/15/2024 COMP. METAB OLIC PANEL (14) bilirubin, total 0.2 mg/dL 0.0-1. 2 normal Not Available [facility] ([facility]) [address] [facility] [place], [address], 04/15/2024 17:07:35 04/16/19 25 04/15/2024 COMP. METAB OLIC PANEL (14) alkaline phosphatase 148 IU/L 44-121 above high normal Not Available [facility] ([facility]) [address] [facility] [place], [address], 04/15/2024 17:07:35 04/16/19 25 04/15/2024 COMP. METAB OLIC PANEL (14) AST (SGOT) 27 IU/L 0-40 normal Not Available [facility] ([facility]) [address] [facility] [place], [address], 04/15/2024 17:07:35 04/16/19 25 04/15/2024 COMP. METAB OLIC PANEL (14) ALT (SGPT) 23 IU/L 0-32 normal Not Available [facility] ([facility]) [address] [facility] [place], [address], 04/15/2024 17:07:35 04/16/19 25 04/15/2024 B-TYP E NATRI URETI C PEPTI DE B-type natriuretic peptide 235.2 pg/mL 0.0-10 0.0 above high normal Sieme ns [facility] metho dolog y Not Available [facility] ([facility]) [address] [place], [address], 04/15/2024 17:07:36 04/16/1904/15/2024 PLEAS E NOTE please note Commen t The date and/o r time of colle ction was not indic ated on the requi sitio n as requi red by state and manuel al law. The date of recei pt of the speci men was used as the colle ction date if not suppl ied. Not Available [facility] ([facility]) [address] [place], [address], 04/15/2024 17:07:36 06/19/1906/19/2024 TSH+F REE T4 TSH 5.960 uIU/m L 0.450- 4.500 above high normal Not Available [facility] ([facility]) [address] [place], [address], 06/19/2024 14:15:06 06/19/1906/19/2024 TSH+F REE T4 T4,free(dire ct) 1.28 NG/dL 0.82-1 .77 normal Not Available [facility] ([facility]) [address] [place], [address], 06/19/2024 14:15:06 06/19/19 25 06/19/2024 CBC WITH DIFFE RENTI AL/PL ATELE T WBC 7.5 x10e3 /uL 3.4-10 .8 normal Not Available [facility] ([facility]) [address] [place], [address], 06/19/2024 14:15:07 06/19/19 25 06/19/2024 CBC WITH DIFFE RENTI AL/PL ATELE T RBC 2.98 x10e6 /uL 3.77-5 .28 below low normal Not Available [facility] ([facility]) [address] [place], [address], 06/19/2024 14:15:07 06/19/19 25 06/19/2024 CBC WITH DIFFE RENTI AL/PL ATELE T hemoglobin 7.3 g/dL 11.1-1 5.9 panic low Clien t Reque sted Flag Not Available [facility] ([facility]) [address] [place], [address], 06/19/2024 14:15:07 06/19/19 25 06/19/2024 CBC WITH DIFFE RENTI AL/PL ATELE T hematocrit 25.6 % 34.0-4 6.6 below low normal Not Available [facility] ([facility]) [address] [place], [address], 06/19/2024 14:15:07 06/19/19 25 06/19/2024 CBC WITH DIFFE RENTI AL/PL ATELE T MCV 86 fL 79-97 normal Not Available [facility] ([facility]) [address] [place], [address], 06/19/2024 14:15:07 06/19/19 25 06/19/2024 CBC WITH DIFFE RENTI AL/PL ATELE T MCH 24.5 pg 26.6-3 3.0 below low normal Not Available [facility] ([facility]) [address] [place], [address], 06/19/2024 14:15:07 06/19/19 25 06/19/2024 CBC WITH DIFFE RENTI AL/PL ATELE T MCHC 28.5 g/dL 31.5-3 5.7 below low normal Not Available [facility] ([facility]) [address] [place], [address], 06/19/2024 14:15:06/19/19 25 06/19/2024 CBC WITH DIFFE RENTI AL/PL ATELE T RDW 16.5 % 11.7-1 5.4 above high normal Not Available [facility] ([facility]) [address] [facility], [place], [address], 06/19/2024 14:15:06/19/19 25 06/19/2024 CBC WITH DIFFE RENTI AL/PL ATELE T platelets 332 x10e3 /uL 150-45 0 normal Not Available [facility] ([facility]) [address] [facility], [place], [address], 06/19/2024 14:15:07 06/19/19 25 06/19/2024 CBC WITH DIFFE RENTI AL/PL ATELE T neutrophils 70 % not estab. normal Not Available [facility] ([facility]) [address] [facility], [place], [address], 06/19/2024 14:15:06/19/19 25 06/19/2024 CBC WITH DIFFE RENTI AL/PL ATELE T lymphs 19 % not estab. normal Not Available [facility] ([facility]) [address] [facility], [place], [address], 06/19/2024 14:15:06/19/19 25 06/19/2024 CBC WITH DIFFE RENTI AL/PL ATELE T monocytes 6 % not estab. normal Not Available [facility] ([facility]) [address] [facility], [place], [address], 06/19/2024 14:15:06/19/19 25 06/19/2024 CBC WITH DIFFE RENTI AL/PL ATELE T eos 4 % not estab. normal Not Available [facility] ([facility]) [address] [place], [address], 06/19/2024 14:15:07 06/19/19 25 06/19/2024 CBC WITH DIFFE RENTI AL/PL ATELE T basos 1 % not estab. normal Not Available [facility] ([facility]) [address] [place], [address], 06/19/2024 14:15:07 06/19/19 25 06/19/2024 CBC WITH DIFFE RENTI AL/PL ATELE T immature cells PROJECT INTERN Not Available [facility] ([facility]) [address] [place], [address], 06/19/2024 14:15:07 06/19/19 25 06/19/2024 CBC WITH DIFFE RENTI AL/PL ATELE T neutrophils (absolute) 5.3 x10e3 /uL 1.4-7. 0 normal Not Available [facility] ([facility]) [address] [place], [address], 06/19/2024 14:15:07 06/19/19 25 06/19/2024 CBC WITH DIFFE RENTI AL/PL ATELE T lymphs (absolute) 1.4 x10e3 /uL 0.7-3. 1 normal Not Available [facility] ([facility]) [address] [place], [address], 06/19/2024 14:15:07 06/19/19 25 06/19/2024 CBC WITH DIFFE RENTI AL/PL ATELE T monocytes(ab solute) 0.5 x10e3 /uL 0.1-0. 9 normal Not Available [facility] ([facility]) [address] [place], [address], 06/19/2024 14:15:07 06/19/19 25 06/19/2024 CBC WITH DIFFE RENTI AL/PL ATELE T eos (absolute) 0.3 x10e3 /uL 0.0-0. 4 normal Not Available [facility] ([facility]) [address] [place], [address], 06/19/2024 14:15:07 06/19/19 25 06/19/2024 CBC WITH DIFFE RENTI AL/PL ATELE T baso (absolute) 0.1 x10e3 /uL 0.0-0. 2 normal Not Available [facility] ([facility]) [address] [facility], [place], [address], 06/19/2024 14:15:07 06/19/19 25 06/19/2024 CBC WITH DIFFE RENTI AL/PL ATELE T immature granulocytes 0 % not estab. Not Available [facility] ([facility]) [address] [facility], [place], [address], 06/19/2024 14:15:07 06/19/19 25 06/19/2024 CBC WITH DIFFE RENTI AL/PL ATELE T immature grans (abs) 0.0 x10e3 /uL 0.0-0. 1 Not Available [facility] ([facility]) [address] [facility], [place], [address], 06/19/2024 14:15:07 06/19/19 25 06/19/2024 CBC WITH DIFFE RENTI AL/PL ATELE T NRBC PROJECT INTERN Not Available [facility] ([facility]) [address] [facility], [place], [address], 06/19/2024 14:15:07 06/19/19 25 06/19/2024 CBC WITH DIFFE RENTI AL/PL ATELE T hematology comments: PROJECT INTERN Not Available [facility] ([facility]) [address] [facility], [place], [address], 06/19/2024 14:15:07 06/19/19 25 06/19/2024 COMP. METAB OLIC PANEL (14) glucose 110 mg/dL 70-99 above high normal Not Available [facility] ([facility]) [address] [place], [address], 06/19/2024 14:15:07 06/19/19 25 06/19/2024 COMP. METAB OLIC PANEL (14) BUN 45 mg/dL 8-27 above high normal Not Available [facility] ([facility]) [address] [facility] [place], [address], 06/19/2024 14:15:07 06/19/19 25 06/19/2024 COMP. METAB OLIC PANEL (14) creatinine 2.01 mg/dL 0.57-1 .00 above high normal Not Available [facility] ([facility]) [address] [facility] [place], [address], 06/19/2024 14:15:07 06/19/19 25 06/19/2024 COMP. METAB OLIC PANEL (14) eGFR 28 mL/mi n/1.7 3 >59 below low normal Not Available [facility] ([facility]) [address] [facility] [place], [address], 06/19/2024 14:15:07 06/19/19 25 06/19/2024 COMP. METAB OLIC PANEL (14) BUN/creatini ne ratio 22 12-28 normal Not Available [facility] ([facility]) [address] [facility] [place], [address], 06/19/2024 14:15:07 06/19/19 25 06/19/2024 COMP. METAB OLIC PANEL (14) sodium 139 mmol/ L 134-14 4 normal Not Available [facility] ([facility]) [address] [place], [address], 06/19/2024 14:15:07 06/19/19 25 06/19/2024 COMP. METAB OLIC PANEL (14) potassium 5.1 mmol/ L 3.5-5. 2 normal Not Available [facility] ([facility]) [address] [place], [address], 06/19/2024 14:15:07 06/19/19 25 06/19/2024 COMP. METAB OLIC PANEL (14) chloride 113 mmol/ L 96-106 above high normal Not Available [facility] ([facility]) [address] [place], [address], 06/19/2024 14:15:06/19/19 25 06/19/2024 COMP. METAB OLIC [...] is very sensi tive. Not Available [facility] ([facility]) [address] [facility], [place], [address], 06/19/2024 14:15:06/19/19 25 06/19/2024 COMP. METAB OLIC PANEL (14) calcium 8.8 mg/dL 8.7-10 .3 normal Not Available [facility] ([facility]) [address] [place], [address], 06/19/2024 14:15:07 06/19/19 25 06/19/2024 COMP. METAB OLIC PANEL (14) protein, total 6.4 g/dL 6.0-8. 5 normal Not Available [facility] ([facility]) [address] [place], [address], 06/19/2024 14:15:07 06/19/19 25 06/19/2024 COMP. METAB OLIC PANEL (14) albumin 3.7 g/dL 3.9-4. 9 below low normal Not Available [facility] ([facility]) [address] [place], [address], 06/19/2024 14:15:07 06/19/19 25 06/19/2024 COMP. METAB OLIC PANEL (14) globulin, total 2.7 g/dL 1.5-4. 5 Not Available [facility] ([facility]) [address] [facility] [place], [address], 06/19/2024 14:15:07 06/19/19 25 06/19/2024 COMP. METAB OLIC PANEL (14) bilirubin, total <0.2 mg/dL 0.0-1. 2 Not Available [facility] ([facility]) [address] [facility] [place], [address], 06/19/2024 14:15:07 06/19/19 25 06/19/2024 COMP. METAB OLIC PANEL (14) alkaline phosphatase 131 IU/L 44-121 above high normal Not Available [facility] ([facility]) [address] [facility], [place], [address], 06/19/2024 14:15:07 06/19/19 25 06/19/2024 COMP. METAB OLIC PANEL (14) AST (SGOT) 10 IU/L 0-40 normal Not Available [facility] ([facility]) [address] [facility] [place], [address], 06/19/2024 14:15:07 06/19/19 25 06/19/2024 COMP. METAB OLIC PANEL (14) ALT (SGPT) 12 IU/L 0-32 normal Not Available [facility] ([facility]) [address] [facility] [place], [address], 06/19/2024 14:15:07 06/19/19 25 06/19/2024 LIPID PANEL cholesterol, total 119 mg/dL 100-19 9 normal Not Available [facility] ([facility]) [address] [facility] [place], [address], 06/19/2024 14:15:08 06/19/19 25 06/19/2024 LIPID PANEL triglyceride s 55 mg/dL 0-149 normal Not Available [facility] ([facility]) [address] [place], [address], 06/19/2024 14:15:08 06/19/19 25 06/19/2024 LIPID PANEL HDL cholesterol 36 mg/dL >39 below low normal Not Available [facility] ([facility]) [address] [facility] [place], [address], 06/19/2024 14:15:08 06/19/19 25 06/19/2024 LIPID PANEL VLDL cholesterol sangeetha 12 mg/dL 5-40 Not Available [facility] ([facility]) [address] [facility] [place], [address], 06/19/2024 14:15:06/19/19 25 06/19/2024 LIPID PANEL LDL chol calc ([facility]) 71 mg/dL 0-99 Not Available [facility] ([facility]) [address] [facility] [place], [address], 06/19/2024 14:15:08 06/19/19 25 06/19/2024 LIPID PANEL LDL calc comment: PROJECT INTERN Not Available [facility] ([facility]) [address] [facility], [place], [address], 06/19/2024 14:15:06/19/19 25 06/19/2024 VITAM IN B12 AND FOLAT E vitamin B12 488 pg/mL 232-12 45 normal Not Available [facility] ([facility]) [address] [facility] [place], [address], 06/19/2024 14:15:06/19/19 25 06/19/2024 VITAM IN B12 AND FOLAT E folate (folic acid), serum 5.8 NG/mL >3.0 normal A serum folat e kurt ntrat ion of less than 3.1 ng/mL is consi dered to repre sent clini sangeetha defic iency . Not Available [facility] ([facility]) [address] [facility] [place], [address], 06/19/2024 14:15:09 06/19/1906/19/2024 HEMOG LOBIN A1C hemoglobin A1C 6.4 % 4.8-5. 6 above high normal Predi abete s: 5.7 - 6.4 Diabe jo ann: >6.4 Glyce galileo contr ol for adult s with diabe jo ann: <7.0 Not Available [facility] ([facility]) [address] [facility], [place], [address], 06/19/2024 14:15:09 08/12/19 25 08/11/2024 drug scree n, urine AMP negati ve Not Available [address], [address], 08/11/2024 14:56:09 08/12/19 25 08/11/2024 drug scree n, urine BAR negati ve Not Available [address], [address], 08/11/2024 14:56:09 08/12/19 25 08/11/2024 drug scree n, urine BUP negati ve Not Available [address], [address], 08/11/2024 14:56:09 08/12/19 25 08/11/2024 drug scree n, urine BZO negati ve Not Available [address], [address], 08/11/2024 14:56:09 08/12/19 25 08/11/2024 drug scree n, urine STACY negati ve Not Available [address], [address], 08/11/2024 14:56:09 08/12/19 25 08/11/2024 drug scree n, urine FTY negati ve Not Available [address], [address], 08/11/2024 14:56:09 08/12/19 25 08/11/2024 drug scree n, urine MDMA negati ve Not Available [address], [address], 08/11/2024 14:56:09 08/12/1908/11/2024 drug scree n, urine MET negati ve Not Available [address], [address], 08/11/2024 14:56:09 08/12/1908/11/2024 drug scree n, urine MOP negati ve Not Available [address], [address], 08/11/2024 14:56:09 08/12/19 25 08/11/2024 drug scree n, urine MTD negati ve Not Available [address], [address], 08/11/2024 14:56:09 08/12/1908/11/2024 drug scree n, urine OXY negati ve Not Available [address], [address], 08/11/2024 14:56:09 08/12/1908/11/2024 drug scree n, urine PCP negati ve Not Available [address], [address], 08/11/2024 14:56:09 08/12/1908/11/2024 drug scree n, urine TCA negati ve Not Available [address], [address], 08/11/2024 14:56:09 08/12/19 25 08/11/2024 drug scree n, urine THC positi ve Not Available [address], [place], [place], [address], 08/11/2024 14:56:09 03/05/19 25 03/05/2024 CT, abdom en + pelvi s, w/o contr ast No observ ation record ed. [facility] [address], [place], [address], 03/05/2024 15:21:51 03/05/19 25 03/05/2024 CT, chest , w/o contr ast No observ ation record ed. [place] [id number], [place], [address], 03/05/2024 15:21:51 03/08/19 25 03/05/2024 elect rocar diogr am No observ ation record ed. [place] [id number], [place], [address], 03/09/2024 08:21:13 03/15/19 25 03/15/2024 XR, chest , 2 view No observ ation record ed. [place] [id number], [place], [address], 03/16/2024 10:06:59 03/15/19 25 03/15/2024 CT, angio gram, chest , w/ contr ast No observ ation record ed. [place] [id number], [place], [address], 03/16/2024 10:06:24 03/15/19 25 03/15/2024 CT, angio gram, chest , w/ contr ast No observ ation record ed. [place] [id number], [place], [address], 03/16/2024 10:05:58 03/16/19 25 03/15/2024 elect rocar diogr am No observ ation record ed. [facility] [address], [place], [place], [address], 03/16/2024 13:50:58 03/16/19 25 03/15/2024 elect rocar diogr am No observ ation record ed. [facility] [address], [place], [place], [address], 03/16/2024 13:50:44 03/17/19 25 03/17/2024 XR, chest , 2 view No observ ation record ed. [facility] [address], [place], [place], [address], 03/17/2024 13:18:34 03/17/19 25 03/16/2024 stres s echoc ardio gram with doppl er color flow (PROC ) No observ ation record ed. [facility] [address], [place], [place], [address], 03/17/2024 13:18:15 03/19/19 25 03/19/2024 XR, chest , 2 view No observ ation record ed. [facility] [address], [place], [place], [address], 03/19/2024 08:41:39 04/10/19 25 04/10/2024 XR, chest , 2 view No observ ation record ed. [facility] [address], [place], [address], 04/10/2024 16:14:04 04/17/19 25 04/16/2024 XR, chest , 2 view No observ ation record ed. [facility] (X-Ray) [address], [place], [address], 04/16/2024 14:20:52 04/18/19 25 04/16/2024 XR, chest , 2 view No observ ation record ed. [facility] [address], [place], [address], 04/17/2024 11:56:42 04/22/19 25 04/16/2024 elect rocar diogr am No observ ation record ed. [facility] [address], [place], [place], [address], 04/23/2024 08:20:46 04/23/19 25 04/21/2024 , [facility] ardio gram, trans esoph ageal No observ ation record ed. [facility] [address], [place], [place], [address], 04/23/2024 08:20:47 04/28/19 25 04/21/2024 elect rocar diogr am No observ ation record ed. [facility] [address], [place], [address], 04/27/2024 09:33:58 04/28/19 25 04/21/2024 elect rocar diogr am No observ ation record ed. [facility] [address], [place], [address], 04/27/2024 09:33:58 07/03/19 25 07/01/2024 LDCT, chest , for lung cance r scree aaliyah No observ ation record ed. [facility] [address], [place], [address], 07/03/2024 09:03:51 10/06/19 25 10/05/2024 elect rocar diogr am No observ ation record ed. [facility] [address], [place], [address], 10/06/2024 08:11:23 11/16/1911/15/2024 CT, abdom en + pelvi s, w/o contr ast No observ ation record ed. [facility] [address], [place], [address], 11/16/2024 08:37:43 11/16/1911/15/2024 XR, chest , 2 view No observ ation record ed. [facility] [address], [place], [place], [address], 11/16/2024 08:37:21 11/16/1911/15/2024 CT, abdom en + pelvi s, w/ contr ast No observ ation record ed. [facility] [address], [place], [address], 11/16/2024 08:36:56 11/17/1911/15/2024 elect rocar diogr am No observ ation record ed. [facility] [address], [place], [address], 11/16/2024 08:35:30 11/18/1911/16/2024 US, doppl er echoc ardio gram, w/ color flow No observ ation record ed. [facility] [address], [place], [address], 11/17/2024 13:01:52 Result Notes None recorded. 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 Ivonne Jones APRN [address], [place], [address], [place] - [facility] 4 14:58:47 Disorder of bone 25143844 Active 2015 Crystal Julianne null, [place] - [facility] 6 09:30:30 History of cardiovascu lar disease 622981177 Active 2015 Ivonne Jones, DUST COLLECTOR TREATER [address], [place], [address], [place] [facility] 4 14:59:00 Colostomy present 630883340 Completed 201509/03/2017 Dinorah Sharp null, [place] - [facility] 8 13:35:52 Type 2 diabetes mellitus 28780472 Active 2015 Ivonne Jones, DUST COLLECTOR TREATER [address], [place], [address], [place] [facility] 4 14:58:43 Hyperlipide farooq 79357505 Active 2015 Ivonne Jones, DUST COLLECTOR TREATER [address], [place], [address], [place] [facility] 4 14:58:53 History of hypertensio n 755822994 Active 2015 Ivonne Jones, DUST COLLECTOR TREATER [address], [place], [address], [place] [facility] 4 14:58:55 Hypothyroid ism 68498974 Active 2015 Ivonne Jones, DUST COLLECTOR TREATER [address], [place], [address], [place] [facility] 4 14:58:51 Neuropathy due to diabetes mellitus 415475173 Active 2015 Ivonne Jones, DUST COLLECTOR TREATER [address], [place], [address], [place] [facility] 4 14:58:46 Pancreatiti s 51774437 Active 2015 Crystal Julianne null, [place] - [facility] 6 09:32:11 Spasm of urinary bladder 581857439 Completed 201511/23/2015 Crystal Julianne null[place] - [facility] 6 09:32:45 Insomnia 268121003 Active 2016 Daysivioleta daxa, CHONG [address], [place], [address], [place] [facility] 4 14:58:50 Candidiasis 07898792 Active 2017 Vincent Amin MD [address], [place], [address], [place] [facility] 8 15:37:13 Fatigue 10614674 Active 2017 Anne aguilar, [place] - [facility] 8 10:26:48 Urostomy present 776458208 Active 2017 Daysivioleta Jones, DUST COLLECTOR TREATER [address], [place], [address], [place] [facility] 4 14:58:41 External hordeolum 2474212 Active 2017 Vincent Amin MD [address], [place], [address], [place] [facility] 8 12:11:25 Depressive disorder 48171551 Active 2023 Daysivioleta NESTOR mittalN [address], [place], [address], [place] [facility] 4 14:59:02 Chronic obstructive pulmonary disease 42426186 Active 2024 Daysivioleta Jones APRN [address], [place], [address], [place] [facility] 5 15:11:34 Congestive heart failure 60711201 Active 2024 Daysivioleta NESTOR mittalN [address], [place], [address], [place] [facility] 5 15:45:47 Blood group O Rh(D) positive 180331002 Active 2024 Daysivioleta NESTOR mittalN [address], [place], [address], [place] [facility] 5 11:32:24 Problem [...] Name and Address Organization Details Recorded Time 92160 ibuprofen medicatio n Not available Not available Not available 11/18/20152014 5640 RxNorm Elly Stears null, [place] - [facility] 14:03:15 Medications Name Sig Start Date Stop Date Status Note LastModified by Organization Details LastModified Time Prescript ion - Renewal 07/11 completed [facility] Not Available Not Available Not Available Prescript ion - Clarifica tion 09/23 completed [facility] Not Available Not Available Not Available [...] Disconti nued on: 09/27/19 16 2:00PM;U ser: [facility]; Pharmacy Verified : 08/25/19 16 3:50PM Not [...] completed Not Available Not Available Not Available [employer] Ultra Blue Test Strip TEST BLOOD SUGAR [...] Available Not Available Not Available Dexcom G7 Child Day Care 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 DIRECTED active Not Available Not Available No t Available Dexcom G7 Sensor device USE DIRECTED CHANGING EVERY 10 DAYS active Not Available Not Available No t Available Breyna 80 mcg-4.5 mcg/actua tion HFA aerosol inhaler active Not Available Not Available Not Available Vitals Date Recorded Body height Body mass index (BMI) Body weight Heart rate Oxygen saturation Respiratory rate Pain severity - 0-10 verbal numeric rating [Score] - Reported Systolic And Diastolic Provider Name and Address Organization Details Last Updated DateTime 5 154.94 cm 25.3 kg/m2 47487.3 8 g 62 /min 98 % 18 /min 0 94/60 mm[Hg] Cara Campos [place] - [facility] 5 15:09:52 Date Recorded Body height Body mass index (BMI) Body weight Heart rate Oxygen saturation Respiratory rate Pain severity - 0-10 verbal numeric rating [Score] - Reported Systolic And Diastolic Provider Name and Address Organization Details Last Updated DateTime 5 154.94 cm 28.3 kg/m2 25561.8 6 g 120 /min 98 % 18 /min 0 96/62 mm[Hg] Cara Campos [place] - [facility] 5 11:37:47 Date Recorded Body height Respiratory rate Body mass index (BMI) Body weight Heart rate Oxygen saturation Body temperature Systolic And Diastolic Provider Name and Address Organization Details Last Updated DateTime 5 154.94 cm 18 /min 25.5 kg/m2 44747.9 7 g 70 /min 97 % 97.7 [degF] 104/62 mm[Hg] Elly Stears [place] - [facility] 5 13:44:39 Date Recorded Body height Body mass index (BMI) Body weight Heart rate Oxygen saturation Respiratory rate Pain severity - 0-10 verbal numeric rating [Score] - Reported Systolic And Diastolic Provider Name and Address Organization Details Last Updated DateTime 5 154.94 cm 26.5 kg/m2 72573.9 3 g 60 /min 98 % 18 /min 0 110/68 mm[Hg] Cara Andres [place] - [facility] 5 14:10:55 Date Recorded Body height Respiratory rate Body mass index (BMI) Body weight Body temperature Systolic And Diastolic Provider Name and Address Organization Details Last Updated DateTime 5 154.94 cm 20 /min 24.8 kg/m2 84008.6 g 97.8 [degF] 112/64 mm[Hg] Elly Quinteross [place] - [facility] 5 13:51:31 Social History Question Answer Notes LastModified by Organizat ion Details LastModified Time Tobacco Smoking Status Current Every Day Smoker Dariela Julianneyuliet aguilar [facility] 11/23/2015 09:34:05 Do You Have An [...] Type Of Diet Are You Following? REGULAR [email or web address] Information not available 10/29/2016 Which Illicit Or [...] Or The Highest Degree You Have Received? [id number] Information not available 02/26/2023 Have There Been [...] Do You Have A Medical Power Of Honing Machine Operator Tool? No Information not available 02/26/2023 What Was The Date Of Your Most Recent Tobacco Screening? 03/02/2024 Information not available 03/02/2024 How Many Children Do You Have? 2 Information not available 02/26/2023 What Is Your Current Pack Years? [email or web address] Information not available 02/26/2023 Do You Use Protection Against STDs? Always Information not available 02/26/2023 What Is Your Relationship Status? [email or web address] Information not available 10/29/2016 Do You Use [...] available 02/26/2023 Are you currently employed? No [email or web address] Information not available 10/29/2016 Do you have [...] anxious, or unable to sleep at night)? [id number] Information not available 02/26/2023 Do you have [...] virus, quadrivalent, preservative 7 completed Not Available [facility] 02/28/2019 03:54:44 Pneumococcal conjugate PCV 13 7 completed Not Available [facility] 02/28/2019 03:54:53 Influenza, split virus, trivalent, preservative 4 completed Ivonne Jones, CHONG [address], [place], [address], [place] [facility] 11/29/2023 13:27:24 Influenza, split virus, quadrivalent, preservative 8 completed Not Available [facility] 02/28/2019 03:55:20 Influenza, split virus, quadrivalent, preservative 9 completed Cara Andres null, [place] - [facility] 03/26/2023 10:50:48 Influenza, split virus, trivalent, PF 6 completed [place] [facility] 03/26/2023 10:50:48 Td (adult), 2 Lf tetanus toxoid, preservative free, adsorbed 7 completed [place] [facility] 03/26/2023 10:50:48 Hep B, adult 5 completed [place] [facility] 03/26/2023 10:50:48 Hep B, adult 4 completed [place] [facility] 03/26/2023 10:50:48 Hep B, adult 4 completed [place] [facility] 03/26/2023 10:50:48 Influenza, split virus, quadrivalent, PF 0 completed [place] [facility] 03/26/2023 10:50:48 Influenza, split virus, quadrivalent, PF 3 completed [place] [facility] 03/26/2023 10:50:49 Influenza, split virus, quadrivalent, PF 2 completed [place] [facility] 03/26/2023 10:50:49 Past Encounters Encounter ID Performer Location Encounter Start Date Encounter Closed Date Diagnosis/Indication Diagnosis SNOMED-CT Code Diagnosis ICD10 Code Diagnosis IMO Codes Diagnosis Note [id number] Anne Mott APRN [facility] [address] [place] [address] 11/23/2015 09:25:12 11/23/2015 13:25:24 Diabetes mellitus 45469483 E11.9 Acquired hypothyroidism 488679477 E03.9 Vitamin D deficiency 347 92193 E55.9 History of cardiovascular disease 776010324 Z86.79 History of hypertension 180647435 Z86.79 Neuropathy due to diabetes mellitus 696273041 E11.40 Hypothyroidism 22954346 E03.9 Hyperlipidemia 56842219 E78.5 [id number] Anne Mott [address] [place] [address] 12/27/2015 10:43:37 12/27/2015 16:15:20 Anxiety 44497433 F41.9 Acquired hypothyroidism 741488900 E03.9 [id number] Anne Mott [address] [place] [address] 01/26/2016 11:16:47 01/26/2016 13:02:03 Neuropathy due to diabetes mellitus 152540386 E11.40 Renewal of prescription 154767437 Z76.0 Disorder of bone 2868725 3 M89.9 Anxiety 62543600 F41.9 Acquired hypothyroidism 692301403 E03.9 [id number] [place] [place] [address] 02/15/2016 16:20:52 02/15/2016 16:55:09 Candidiasis of skin 70006543 B37.2 [id number] Anne [place] [place] [address] 02/27/2016 13:27:14 02/27/2016 14:33:44 Anxiety 93300334 F41.9 Type 2 jonathon betes mellitus 56291117 E11.9 Acquired hypothyroidism 014991362 E03.9 Candidiasis 10662175 B37 .9 under breast and vulvo perineal area is much better than last visit [id number] Anne Mott [address] [place] [address] 03/29/2016 08:04:47 03/29/2016 09:47:03 Type 2 diabetes mellitus 03755197 E11.9 Hypothyroidism 90910346 E03.9 Neuropathy due to diabetes mellitus 029056344 E11.40 History of hypertension 226955820 Z86.79 Hyperlipidemia 93069223 E78.5 Anxiety 35369687 F41.9 Renewal of prescription 373335399 Z76.0 Anne [place] [address] 04/19/2016 09:22:42 04/19/2016 11:19:36 Hypokalemia 95944349 E87.6 Insomnia 615151366 G47.0 0 [id number] Annearturo Mott[address] [place] [address] 04/26/2016 12:30:47 04/26/2016 13:50:41 Renewal of prescription 637118433 Z76.0 Anxiety 32783036 F41.9 Decreased renal function 31879648 R94.4 chronic, referral has been made to nephrology Hypothyroidism 93411501 E03.9 Type 2 jonathon betes mellitus 34678515 E11.9 History of cardiovascular disease 465239652 Z86.79 [id number] Annearturo Mott[address] [place] [address] 05/28/2016 12:40:29 05/28/2016 18:20:31 Anxiety 17830740 F41.9 [id number] Annearturo Mott[address] [place] [address] 07/26/2016 16:00:07 07/26/2016 17:15:20 Anxiety 09828694 F41.9 Body mass index 30+ - obesity 207724024 Z68.33 Nicotine dependence 5629 4008 F17.200 Neuropathy due to diabetes mellitus 575761565 E11.40 Open wound 193601287 S21 .90XD small opening noted wher drain tube was at bottom of sternotomy scar which is well healed [id number] Annearturo Mott[address] [address] 08/28/2016 10:12:46 08/28/2016 10:49:11 Anxiety 47752535 F41.9 Insomnia 498062770 G47.0 0 Essential hypertension 39492593 I10 Hypothyroidism 31809866 E03.9 Hyperlipidemia 45867727 E78.5 Colostomy present 272795 009 Z93.3 Type 2 jonathon betes mellitus 66843876 E11.9 [id number] Anne Mott [address] [place] [address] 09/26/2016 15:41:14 09/26/2016 16:27:06 Anxiety 48846026 F41.9 Insomnia 473302263 G47.0 0 [id number] Anne Mott [address] [place] [address] 10/29/2016 10:15:48 10/29/2016 13:51:37 Insomnia 450298954 G47.00 History of hypertension 026393342 Z86.79 Anxiety 01972481 F41.9 History of cardiovascular disease 925696532 Z86.79 Neuropathy due to diabetes mellitus 991576290 E11.40 Colostomy present 587669 009 Z93.3 Hypothyroidism 24815405 E03.9 Type 2 jonathon betes mellitus 87835881 E11.9 Hyperlipidemia 93198209 E78.5 [id number] Annearturo Mott[address] [place] [address] 11/26/2016 14:15:45 11/26/2016 15:26:09 Renewal of prescription 413128698 Z76.0 History of cardiovascular disease 915588854 Z86.79 History of hypertension 905602582 Z86.79 Type 2 jonathon betes mellitus 84921318 E11.9 Anxiety 76042830 F41.9 1475018 Anne Mott[address] [place] [address] 12/27/2016 13:29:34 12/27/2016 14:15:59 Renewal of prescription 424220176 Z76.0 Insomnia 667937218 G47.0 0 Active or passive immunization 620887384 Z23 [id number] Anne Mott [address] [place] [address] 01/22/2017 14:06:34 01/22/2017 15:30:08 Renewal of prescription 812682249 Z76.0 Anxiety 13961927 F41.9 Body mass index 30+ - obesity 593380718 Z68.34 [id number] Annearturo Mott [address] [place] [address] 02/28/2017 13:01:09 02/28/2017 13:53:23 Renewal of prescription 793989457 Z76.0 Anxiety 21691730 F41.9 Body mass index 30+ - obesity 307898544 Z68.34 [id number] Annearturo Mott [address] [place] [address] 04/25/2017 10:46:10 04/25/2017 12:02:47 Neuropathy due to diabetes mellitus 480878111 E13.40 Renewal of prescription 892865706 Z76.0 Anxiety 84951665 F41.9 History of cardiovascular disease 757791306 Z86.79 Hypothyroidism 24215600 E03.9 [id number] Vincent Amin MD [address] [place] [address] 05/23/2017 14:14:23 05/23/2017 15:31:00 Diabetes mellitus 92242277 E11.9 Candidiasis 56750960 B37 .9 Colostomy present 011837 009 Z93.3 Type 2 jonathon betes mellitus 40930950 E11.37X1 Anxiety 56339459 F41.9 Hyperlipidemia 98056029 E78.5 8936245 Anne Tiera[address] [place] [address] 07/11/2017 10:03:27 07/11/2017 11:41:31 Neuropathy due to diabetes mellitus 743151878 E13.40 Insomnia 718003617 G47.0 0 Body mass index 30+ - obesity 926556022 Z68.34 [id number] Annearturo Mott[address] [place] [address] 07/24/2017 12:46:10 07/24/2017 15:28:15 Anxiety 92172897 F41.9 Renewal of prescription 208424778 Z76.0 Candidiasis of skin 4988 3006 B37.2 [id number] Annearturo Mott[address] [place] [address] 08/22/2017 09:40:55 08/22/2017 10:52:06 Anxiety 13659540 F41.9 Type 2 jonathon betes mellitus 68468459 E11.9 Hypothyroidism 74059932 E03.9 History of hypertension 956812426 Z86.79 History of cardiovascular disease 355550513 Z86.79 Fatigue 24385038 R53.83 Viral screening 80748418 4 Z11.59 Screening for malignant neoplasm of colon 222708737 Z12.11 Hyperlipidemia 94287812 E78.5 Vitamin D deficiency 347 18762 E55.9 Anemia 057919377 D64.9 Pain of mu ltiple joints 34429095 M25.50 [id number] Anne Mott[address] [place] [address] 09/03/2017 12:38:43 09/03/2017 13:52:03 Methicillin resistant Staphylococcus aureus infection 561989691 A49.02 Chronic confusion 809360 005 R41.0 [id number] Anne Mott[address] [place] [address] 09/23/2017 13:13:01 09/23/2017 14:08:42 Anxiety 15400863 F41.9 History of hypertension 576540468 Z86.79 [id number] Betsey Cuellar[address] [place] [address] 10/24/2017 15:22:59 10/24/2017 17:13:34 Anxiety 20154319 F41.9 Benign hypertension 1072 5009 I10 0473535 Anne Mott [address] [address] 11/20/2017 13:42:52 11/20/2017 15:14:18 Anxiety 90231098 F41.9 Neuropathy due to diabetes mellitus 284800937 E13.40 Insomnia 621801966 G47.0 0 Administra tion of influenza vaccine 04815295 Z23 Type 2 jonathon betes mellitus 24126266 E11.9 History of cardiovascular disease 229629819 Z86.79 [id number] Vincent Amin MD [facility] [address] [place], [place] [address] [place] [address] 12/19/2017 15:49:29 12/19/2017 18:10:12 Anxiety 15436649 F41.9 Candidiasis of skin 4988 3006 B37.2 Hordeolum externum of upper eyelid of right eye 5013491076 77582 H00.011 Candidiasis 53656830 B37 .9 History of hypertension 074963933 Z86.79 Neuropathy due to diabetes mellitus 436320015 E11.40 Hyperlipidemia 69566770 E78.5 Pancreatitis 14879039 K8 5.90 External hordeolum 35380 08 H00.019 Urostomy present 1230926 04 Z93.6 [id number] Betsey Cuellar APRN [facility] [address] [place], [place] [address] [address] 02/20/2018 08:48:36 02/20/2018 09:19:38 Anxiety 27647925 F41.9 Neuropathy due to diabetes mellitus 797463670 E11.40 Benign hypertension 1072 5009 I10 Insomnia 280714360 G47.0 0 Hypothyroidism 01795079 E03.9 Fecal occu lt blood: positive 408217728 R19.5 [id number] Ivonne Jones APRN [address] [address] 02/26/2023 13:49:28 02/26/2023 15:29:07 Anxiety 59205814 F41.9 discussed with pt and daughter that due to her pot smoking daily and she takes 4 controlled substance, at this time I would not take those over. discussed if she would stop smoking pot and give a clean uds I could do her xanax and gabapentin but would not write norco and ambien. Depressive disorder 0278 6501 F32.A History of cardiovascular disease 052022033 Z86.79 History of hypertension 150793903 Z86.79 Hypothyroidism 08831672 E03.9 Insomnia 208237494 G47.0 0 Neoplasm o f urinary bladder 970346732 D49.4 Neuropathy due to diabetes mellitus 589542451 E11.40 Type 2 jonathon betes mellitus 65490976 E11.9 pt interested in omnipod pump. Urostomy present 8633384 04 Z93.6 7650978 Ivonne Robert [place] [address] 03/26/2023 10:33:57 03/26/2023 11:48:39 Anxiety 41731885 F41.9 discussed with pt and daughter due to her smoking pot she needs to work on stop smoking. will send xanax and take it over. Depressive disorder 3548 9007 F32.A will increase depression med and send sleep aid. Type 2 jonathon betes mellitus 23787000 E11.9 Long-term current use of benzodiazepine 3277207267 6693419 Z79.899 Insomnia 936338408 G47.0 0 2105000 Daysivioleta Jones [place] [address] 04/09/2023 10:59:34 04/09/2023 11:37:43 Insomnia 672068523 G47.00 discussed risk with pt Anxiety 14392278 F41.9 discussed with pt and daughter due to her smoking pot she needs to work on stop smoking. will send xanax and take it over. [id number] Ivonne Jones [place] [address] 04/15/2023 10:51:49 04/15/2023 12:57:47 Type 2 diabetes mellitus 48048831 E11.9 omnipod pod will not connect to pump notified omnipod customer service [id number] Daysivioleta daxa [place] [address] 05/07/2023 10:38:41 05/07/2023 11:06:32 Anxiety 80319418 F41.9 discussed with pt and daughter due to her smoking pot she needs to work on stop smoking. will send xanax and take it over.pt states she has continued to not smoke pot. Type 2 jonathon betes mellitus 67556041 E11.9 call omnipod for replacemen t pump- number given to pt [id number] Ivonne Jones [address] [address] 05/10/2023 10:37:59 05/10/2023 11:39:12 Type 2 diabetes mellitus 95349393 E11.9 omnipod set up and pt verbalizes understand ing [id number] Ivonne Jones [address] [address] 05/13/2023 10:53:27 05/13/2023 11:57:27 Type 2 diabetes mellitus 31913562 E11.9 dexcom set up and pt verbalizes understand ing [id number] Ivonne Jones [address] [address] 05/31/2023 08:50:06 05/31/2023 09:49:38 Type 2 diabetes mellitus 13218968 E11.9 dexcom set up and pt verbalizes understand ing Anxiety 71731125 F41.9 discussed with pt and daughter due to her smoking pot she needs to work on stop smoking. will send xanax and take it over.pt states she has continued to not smoke pot. Vitamin D deficiency 347 53190 E55.9 [id number] Ivonne Jones [address] [address] 06/17/2023 09:04:34 06/17/2023 09:45:38 Acute confusion 600295451 R41.0 Chronic ki dney disease 019731336 N18.9 Acute urin glenroy tract infection 913856986 N39.0 if symptoms worsen or no improvemen t return or go to ed [id number] Ivonne Jones [address] [address] 06/25/2023 10:50:22 06/25/2023 11:21:34 Depressive disorder 88784290 F32.A will increase depression med and send sleep aid. Anxiety 19030216 F41.9 discussed with pt and daughter due to her smoking pot she needs to work on stop smoking. will send xanax and take it over.pt states she has continued to not smoke pot. Type 2 jonathon betes mellitus 06097265 E11.9 [id number] Ivonne Jones APRN [address] [address] 10/17/2023 14:02:27 10/17/2023 14:34:54 Anxiety 42654383 F41.9 Pt compliant with plan of careKasper reviewedme dication compliance discussedL ast uds:10/17/23 Control substance agreement on file Long-term current use of benzodiazepine 2854452987 3950106 Z79.899 discussed uds results and pt states she will stop smoking pot. discussed next visit if uds not neg will start adjusting meds Type 2 jonathon betes mellitus 85451834 E11.9 discussed the importance to check glucosewri te it down in log and bring to next appointmen tdiscussed importance of taking insulin and taking care of self. [id number] Ivonne Jones APRN [address] [address] 11/15/2023 09:01:36 11/15/2023 09:58:44 Anxiety 57272367 F41.9 Pt compliant with plan of careKasper reviewedme dication compliance discussedL ast uds:10/17/23 Control substance agreement on filewill give 7 extra tabs to take at noon if needed on days where her anxiety is increased Depressive disorder 3548 9007 F32.A History of hypertension 314342581 Z86.79 History of cardiovascular disease 230756203 Z86.79 Hyperlipidemia 81068212 E78.5 Hypothyroidism 78338905 E03.9 Type 2 jonathon betes mellitus 25530539 E11.9 discussed the importance to check glucosewri te it down in log and bring to next appointmen tdiscussed importance of taking insulin and taking care of self. Neuropathy due to diabetes mellitus 782631620 E11.40 Urostomy present 2240016 04 Z93.6 Candidiasis 52985043 B37 .9 keep area clean and dry apply cream [id number] Ivonne Jones APRN [address] [address] 11/29/2023 10:40:35 11/29/2023 11:26:24 Influenza vaccine needed 8723116910 106 Z23 Pain of ri ght upper arm 9173403899 10938 M79.621 Type 2 jonathon betes mellitus 04105566 E11.9 discussed the importance to check glucosewri te it down in log and bring to next appointmen tdiscussed importance of taking insulin and taking care of self. Pain of ri ght shoulder joint 0840296313 5495313 M25.597 [id number] Ivonne Jones APRN [address] [address] 12/24/2023 10:36:27 12/24/2023 11:33:59 Renewal of prescription 569639684 Z76.0 Depressive disorder 3548 9007 F32.A Type 2 jonathon betes mellitus 17308668 E11.9 discussed the importance to check glucosewri te it down in log and bring to next appointmen tdiscussed importance of taking insulin and taking care of self. Vitamin D deficiency 347 37164 E55.9 History of cardiovascular disease 856115250 Z86.79 Restless l egs syndrome 67040509 G25.81 Urostomy present 3084716 04 Z93.6 [id number] Ivonne Jones APRN [address] [address] 01/21/2024 14:10:39 01/21/2024 15:59:35 Long-term current use of benzodiazepine 8335154107 9031579 Z79.899 discussed uds results. again discussed the importance of not smoking pot with meds. pt states it helps with anxiety. will increase meds discussed the concerns of her continuing to smoke pot and her contract Anxiety 82316871 F41.9 Pt compliant with plan of careMariahsper reviewedme dication compliance discussedL ast uds:Control substance agreement on filewill give 7 extra tabs to take at noon if needed on days where her anxiety is increased [id number] Ivonne Jones APRN [address] [address] 02/13/2024 13:49:38 02/13/2024 15:05:04 Acute exacerbation of chronic obstructive pulmonary disease 234416731 J44.1 continue steroidsbr eathing txif symptoms worsen or do not improve return Candidiasis of skin 4988 3006 B37.2 if worsen returnclea n skin well apply powder and then vaseline, then gauze [id number] Ivonne Jones APRN [address] [address] 03/02/2024 14:49:29 03/02/2024 16:01:58 Candidiasis of mouth 95172736 B37.0 Memory impairment 172303 006 R41.3 8305715 Ivonne Jones [address] [address] 03/26/2024 14:43:32 03/26/2024 15:44:32 Pressure injury stage I 4327006409 L89.91 dressing applied to buttocks- wound care referral sent Congestive heart failure 74594747 I50.9 History of cardiovascular disease 603033564 Z86.79 call cardiology mercedes if plavix is not in home meds- discussed the need to have plavix unless told by cardiology not to be on Pneumonia 679808551 J18. 9 continue treatment [id number] Daysivioleta Jones [address] [address] 04/14/2024 11:10:09 04/14/2024 12:13:43 Chronic obstructive pulmonary disease 67382931 J44.9 Urostomy present 9181210 04 Z93.6 Abnormal weight gain 161 737930 R63.5 Dyspnea 423416414 R06.00 pt refuses to go to ed. discussed risk of not going pt still declines pt states she is not going to [facility] [id number] [facility] [address] [address] 05/11/2024 13:31:52 05/11/2024 13:57:29 Anxiety 99912707 F41.9 Pt compliant with plan of careKasper reviewedme dication compliance discussedL ast uds:Control substance agreement on filewill give 7 extra tabs to take at noon if needed on days where her anxiety is increased Unexplaine d weight loss 192215849 R63.4 History of cardiovascular disease 480541994 Z86.79 History of primary malignant neoplasm of urinary bladder 672495150 Z85.51 Screening for malignant neoplasm of breast 999598354 Z12.39 [id number] Ivonne daxa [employer] [address] [address] 06/18/2024 13:58:48 06/18/2024 14:40:44 Candidiasis of skin 43272254 B37.2 922611 if worsen returnclea n skin well apply powder and then vaseline, then gauze Pruritus of vagina 04989 003 N89.8 919431 [id number] Ivonne Jones APRN [address] [address] 08/11/2024 13:37:47 08/11/2024 14:45:46 Anxiety 15081588 F41.9 Pt compliant with plan of careAmador reviewedme dication compliance discussedL ast uds:08/12/19 25Control substance agreement on fileuds results discussed- discussed pp control substance policy Type 2 jonathon betes mellitus 56372713 E11.9 discussed the importance to check glucosewri te it down in log and bring to next appointmen t Normal weight 24661107 Z 68.24 3067942495 24.8 Family conflict 49528833 Z63.8 09199 Chronic constipation 236 929618 K59.09 144765 Health Concerns Section Related Observation LastModified by Organization Detai ls LastModified Time None Recorded Concern Status LastModified by Organization Details LastModified Time None Recorded Advance Directives Directive N: Payers Insurance Date Sequence Insurance Name Policy Number Policy Garnica Covered Member ID Garnica Member ID Guarantor Name 11/11/2024 2 [place] [place]TRADITIO NAL Laxmi Cronin [id number] Laxmi Cronin 08/11/2024 2 [place]AD[place] RAFA Cronin [id number] Laxmi Cronin 04/02/2023 SLIDING FEE SCHEDULE - DISCOUNT Laxmi Cronin 11/11/2024 1 [employer] - [place] (MEDICARE REPLACEMENT/ ADVANTAGE - HMO) Laxmi Cronin [id number] Laxmi Cronin 08/11/2024 2 [place] Laxmi Cronin [id number] Laxmi Cronin 11/12/2024 [facility] [place] [facility] (MEDICARE) Laxmi Cronin [id number] Laxmi Cronin Notes Date Note Type Note Provider Name and Address Organization Details Recorded Time 03/26/2024 text/html Emergency Depart ment Follow-Up RecordReported by PatientEmergency Room Follow-Up RecordFor discharge information, patient reportsname of hospital/urgent care patient was seen: ([facility] and ),patient presented to hospital/urgent care [...] to kidneys/urinary tract and the other at [facility] for pneumonia and pulmonary embolus. Ivonne Jones APRN [address], [place], [address], [place] - [facility] 03/26/2024 15:49:08 04/14/2024 text/html ROS as noted in the HPI 63 yr old female presents with raspy cough and short of breath. She has gained around 15 pounds in the last few weeks. Ivonne Jones APRN [address], [place], [address], [place] [facility] 04/14/2024 12:06:30 05/11/2024 text/html 63 year old female who presents to the office today for a follow up on anxiety, needs alprazolam refilled. pt states meds help with her anxiety.pt has lost 15lbs since last visit on 3-4-25,declines colonoscopy, will do mamm.labs,urology consult, pt states she just is not hungry or feel like eating. Ivonne JonesCHONG [address], [place], [address], [place] - [facility] 05/11/2024 14:10:36 06/18/2024 text/html ROS as noted in the HPI 64 yr old female presents for vaginal discharge and itching for over a week. She is red under abdomen, breast and groin. Ivonne JonesCHONG [address], [place], [address], [facility] - [facility] 06/18/2024 14:48:28 08/11/2024 text/html [...] chew food due to bad teeth Ivonne JonesCHONG [address], [place], [address], [place] - [facility] 08/11/2024 16:56:42 OBGyn Episode No OBEpisode recorded.
--- OUTSIDE RECORDS SUMMARY | 2025-01-01 09:04 | XMS_ITS | Encounter Summary ---
Author Organization [employer] ([place], [place], [place], [place], [place]) Address [address] [place] [id number] Care Team Providers Care Data Entry Operator Name Role Phone Unavailable Primary Care Provider Unavailabl e Encounter Details Date Type Department Care Team (Late st Contact Info) Description 03/27/2018 Transcribed Document [facility] Family Medicine [address] [place] [address] ProviderZion MD [address] [place] [address] [id number] Social History Tobacco Use Types Packs/Day Years Used Date Smoking Tobacco: Never Assessed Comments Unknown Sex and Gender Information Value Date Recorded Sex Assigned at Not on file Legal Sex Female 4:39 PM CDT Gender Identity Not on file Sexual Orientation Not on file documented as of this encounter Miscellaneous Notes * Cerner Conversion Note - Zion ProviderMD - 03/27/2018 9:26 AM CHIPPER OPERATOR Patient: ETHAN CRONIN Age: 57 years Sex: Female : 1960 Associated Diagnoses: None Author: AJAY MARCANO MD-CAR Basic Information PCP: Unknown Echocardiograph Tech: Chief Complaint 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 Social & Psychosocial Habits Tobacco 02/17/2015 Tobacco Use Within Last Twelve Months Cigarettes Smoking Status Current every day smoker Years of Tobacco Use 40 Packs/Tins Daily 1 Smoking Cessation Information Provided Yes Past Medical History: Active CAD - Coronary artery disease (8719186375) Cardiomyopathy (534967397) HLD - Hyperlipidemia (723658695) HTN - Hypertension (4417579749) Resolved COPD - Chronic obstructive pulmonary disease (075526166): Resolved. Family History: No family history items have been selected or recorded. Procedure history: CABG in 2016 at 55 Years. MAZE in 2016 at 55 Years. Cholecystectomy; (20393). Comments: 02/17/2015 11:52 - SUSI BOWMAN RN [...] of motion, Normal strength. Integumentary: Warm, Dry, [place]. Neurologic: Alert, Oriented. Psychiatric: Cooperative, Appropriate mood & affect. Review / Management MAR 27 07:36 136 104 H 33 / H 137 4.0 L 20 0.90 \ Cardiac Markers (Current Encounter/Past 24 Hours) No Cardiac Marker Results Found (Past 24 Hours) Blood Gases (Current Encounter/Past 24 Hours) No Blood Gas Results Found (Past 24 Hours) Radiology Results (Last 48 hours) [id number] -- 03/23/2018 17:08 CT Abdomen Pelvis WO [...]
--- OUTSIDE RECORDS SUMMARY | 2025-01-01 09:04 | XMS_ITS | Clinical Summary ---
Author Organization [facility] Address [facility] [place] [address] Care Team Providers Care Instructor Substitute Cosmetology Name Role Phone Pcp, No Primary Care Provider [phone] Source Comments This information has been disclosed [...] therelease of HIV test results or diagnoses. [id number] Allergies No known active allergies Medications [...] drink = 0.6 oz pur e alcohol) [facility] Utilities Answer Date Recorded In the past 12 months has e [employer], gas, oil, or water [employer] [place] threatened to shut off services in your [...] time in the past 12 m [place], were you homeless or living in a mcc (including now)? No 03/05/2024 Comments Unknown Sex [...] (MyChart) 06/04/2007 Stool Testing (gFOBT) 06/04/2007 Immunization: RSV (Adult) (1 - Risk 50-74 years 1-dose series) 2012 Immunization: Zoster (1 of 2) 2012 Lung Cancer Screening 2012 Immunization: Pneumococcal ( 2 of 2 - PPSV23, PCV20, or PCV21) 02/21/2017 12/27/2016 Diabetic Eye Exam (MyChart) 03/08/2024 Thyroid Function/TSH [...] - 33 mmol/L 03/09/2024 4:11 AM EST [facility] Anion Gap 10 3 - 16 [...] ORDERABLES Fin al Result Performing Organization Address [facility] Co de Phone Number [facility] [address] [facility] * Protein / creatinine ratio, urine (03/07/2024 11:26 PM EST) Creatinine, Urine 28.30 mg/dL 03/07/2024 11:52 PM EST [facility] Comment:Reference range not established for this test. Total Protein, Ur 52 mg/dL 03/07/2024 11:52 PM EST [facility] Comment:Reference range not established for this test. Prot/Creat Ratio, Ur 1.84 ratio 03/07/2024 11:52 PM EST [facility] Urine 03/07/2024 11:2 6 PM EST 03/07/2024 11:36 PM EST Tate Castro MD URINE ORDERABLES Final R esult Performing Organization Address [facility] Co de Phone Number [facility] [address] * (ABNORMAL) Thyroid Function [place] (03/06/2024 1:44 PM EST) TSH 6.15(H) 0.45 - 4.12 uIU/mL 03/06/2024 2:33 PM EST [facility] Serum 03/06/2024 1:44 PM EST 03/06/2024 1:50 PM EST us Angelo Chaudhry CNP LAB BLOOD ORDERABLES Final Result Performing Organization Address [facility] Co de Phone Number [facility] [address] * (ABNORMAL) Hemoglobin A1c (03/06/2024 5:42 AM EST) Hemoglobin A1C 6.4(H) 4.0 - 5.6 % 03/06/2024 1:13 PM EST [facility] Comment: Hemoglobin A1c Interpretation Guidelines: [...] ORDERABLES Bindu l Result Performing Organization Address [facility] Co de Phone Number [facility] [address] from Last 3 Months or Most Recently Relevant to Health Maintenance Insurance [employer] GOLD [employer]US MEDICARE [facility] Care Address: [address] [address] [place] [address] Advance Directives For more information, please contact: [phone] Documents on File Type Date Recorded Patient Neck Band Operator Expl anation Durable Power of Dental Ceramist Assistant - scan 03/11/2024 * Full Code (Latest Code Status on File) Date Activated Date Inactivated Comments 03/05/2024 10:20 PM 03/09/2024 11:04 PM Care Teams Instructor Substitute Cosmetology Relationship Specialty Start Date End Date Pcp, No [address] [place], [place] [id number] PCP - General 03/05/24
--- OUTSIDE RECORDS SUMMARY | 2025-01-01 09:04 | XMS_ITS | Encounter Summary ---
Author Organization [employer] ([place], [place], [place], [place], [place]) Address [address] [place] [address] Care Team Providers Care Psychologist Industrial Organizational Name Role Phone Unavailable Primary Care Provider Unavailabl e Encounter Details Date Type Department Care Team (Late st Contact Info) Description 03/25/2018 Transcribed Document [facility] [place] [facility] [place] [address] ProviderZion MD [address] [place] [address] Social History Tobacco Use Types Packs/Day Years Used Date Smoking Tobacco: Never Assessed Comments Unknown Sex and Gender Information Value Date Recorded Sex Assigned at Not on file Legal Sex Female 4:39 PM CDT Gender Identity Not on file Sexual Orientation Not on file documented as of this encounter Miscellaneous Notes * Cerner Conversion Note - Zion ProviderMD - 03/25/2018 8:01 AM 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
--- OUTSIDE RECORDS SUMMARY | 2025-01-01 09:04 | XMS_ITS | Encounter Summary ---
Author Organization [employer] ([place], [place], [place], [place], [place]) Address [address] [place] [address] Care Team Providers Care Housing Grant Analyst Name Role Phone Unavailable Primary Care Provider Unavailabl e Encounter Details Date Type Department Care Team (Late st Contact Info) Description 03/25/2018 Transcribed Document [facility] [place] Family Medicine [address] [place] [address] ProviderZion MD [address] [place] [address] Social History Tobacco Use Types [...] - Historical ProviderMD - 03/25/2018 5:00 AM MARKETING DEVELOPMENT REPRESENTATIVE Chart Check - Review Order Profile Entered On: 03/25/2018 4:05 EST Performed On: 03/25/2018 5:00 EST by Carolina Valenzuela RN Chart Check Chart Reviewed Date and Time : 03/25/2018 4:05 EST Carolina Valenzuela RN - 03/25/2018 4:05 EST Electronically signed by Jorge Alberto [facility] Conversion Commercial Or Institutional Cleaner Cerner at 05/29/2022 8:34 PM CDT documented in this encounter Plan of Treatment Not on file documented as of this encounter Visit Diagnoses Not on filedocumented in this encounter
--- OUTSIDE RECORDS SUMMARY | 2025-01-01 09:04 | XMS_ITS | Encounter Summary ---
Author Organization [employer] ([place], [place], [place], [place], [place]) Address [address] [place] [address] Care Team Providers Care Project Buyer Name Role Phone Unavailable Primary Care Provider Unavailabl e Encounter Details Date Type Department Care Team (Late st Contact Info) Description 03/26/2018 Transcribed Document [facility] [place] Family Medicine [address] [place] [address] ProviderZion MD [address] [place] [address] Social History Tobacco Use Types [...] - Historical ProviderMD - 03/26/2018 2:00 AM MANAGER INTENSIVE CARE Line Service Technician Details Entered On: 03/26/2018 1:20 EST Performed [...] Tasia Ewing, Rn-Resource - 03/26/2018 1:19 EST Electronically signed by Vinayak Azul Conversion Printing Equipment Mechanic Apprentice Cerner at 05/29/2022 8:55 PM CDT documented in this encounter Plan of Treatment Not on file documented as of this encounter Visit Diagnoses Not on filedocumented in this encounter
--- OUTSIDE RECORDS SUMMARY | 2025-01-01 09:04 | XMS_ITS | Encounter Summary ---
Author Organization [employer] ([place], [place], [place], [place], [place]) Address [address] [place] [address] Care Team Providers Care Bordereau Clerk Name Role Phone Unavailable Primary Care Provider Unavailabl e Encounter Details Date Type Department Care Team (Late st Contact Info) Description 03/25/2018 Transcribed Document [facility] [place] Family Medicine [address] [place] [address] ProviderZion MD [address] [place], [place] [phone] Social History Tobacco Use Types Packs/Day Years Used Date Smoking Tobacco: Never Assessed Comments Unknown Sex and Gender Information Value Date Recorded Sex Assigned at Not on file Legal Sex Female 4:39 PM CDT Gender Identity Not on file Sexual Orientation Not on file documented as of this encounter Miscellaneous Notes * Cerner Conversion Note - Zion Alonso MD - 03/25/2018 7:28 AM CARPENTER WOODEN TANK ERECTING DATE OF CONSULTATION: 03/24/2018 ELECTROPHYSIOLOGY CONSULTATION REFERRING HOSPITALIST: Omar Nelson M.D. CONSULTING CHECK WRITER SALESPERSON: Jorge Hawkins MD REASON FOR CONSULTATION: Bradycardia. [...] been seen by Dr. Beard in the [facility]. The patient does have a history [...] count of 379. [place] 1.8[place] [address]. Liver enzymes normal. EKG shows biventricular paced [...] CC1: Jorge Hawkins M.D. CC2: Dr. Beard; [place], [place] Electronically signed by Jorge Alberto [facility] Conversion Machine Whitener Cerner at 05/29/2022 8:43 PM CDT documented in this encounter Plan of Treatment Not on file documented as of this encounter Visit Diagnoses Not on filedocumented in this encounter
--- OUTSIDE RECORDS SUMMARY | 2025-01-01 09:04 | XMS_ITS | Encounter Summary ---
Author Organization [employer] ([place], [place], [place], [place], [place]) Address [address] [place] [address] Care Team Providers Care Ordnance Officer Name Role Phone Unavailable Primary Care Provider Unavailabl e Encounter Details Date Type Department Care Team (Late st Contact Info) Description 03/25/2018 Transcribed Document [facility] [place] [facility] [place] [address] ProviderZion MD [address] [place] [id number] Social History Tobacco Use Types Packs/Day Years Used Date Smoking Tobacco: Never Assessed Comments Unknown Sex and Gender Information Value Date Recorded Sex Assigned at Not on file Legal Sex Female 4:39 PM CDT Gender Identity Not on file Sexual Orientation Not on file documented as of this encounter Miscellaneous Notes * Cerner Conversion Note - Zion Alonso MD - 03/25/2018 9:14 AM CHILD DEVELOPMENT INSTRUCTOR Patient: ETHAN CRONIN Age: 57 years Sex: Female : 1960 Associated Diagnoses: None Author: CARROLL HIGH MD-INF Basic Information CC: Sepsis bacteremia 03/19/18 4/4 bottles for Group b strep ([facility]) History of Present Illness 57-year-old white female with history of bladder cancer, atrial flutter, pacemaker placement 2016, hypertension, DM2, COPD, pancreatitis, who recently had blood cultures obtained at [facility] on 03/19/18 for fever which were positive in 4 out of 4 bottles for group B Streptococcus. Patient was to start IV antibiotics but was found to have bradycardia and was admitted to [facility] on 03/23/17. I was consulted on 03/25/17. The patient had been started on vancomycin and Rocephin. Urine culture obtained at [facility] was positive for multiple bacteria consistent [...] cefTRIAXone (Rocephin) - 2 Gram, IV Piggyback, [id number], infuse over 30 Minute(s), Routine vancomycin + Sodium Chloride 0.9% intravenous solution 250 m - 750 mg, IV Piggyback, [id number], infuse over 1 Hour(s) Anticoagulant heparin - [...] 11:52 - SUSI BOWMAN RN 2006 Cholecystectomy; ([id number]). Comments: 02/17/2015 11:52 - SUSI BOWMAN RN 2007 umbilical hernia repair. Social History Social & Psychosocial Habits Tobacco 02/17/2015 Tobacco Use Within Last Twelve Months Cigarettes Smoking Status Current every day smoker Years of Tobacco Use 40 Packs/Tins Daily 1 Smoking Cessation Information Provided Yes . , 3 children, lives in [facility] about 1[place]/2 hours from [place].. Physical Examination VS/Measurements Vitals Signs (last 24 [...] Normal strength, No tenderness. Integumentary: Warm, Dry, [place], No pallor, No rash, Left chest wall [...] No Radiology Results Found Diagnostic Findings: ACC: [id number] ORDER: Culture Blood DATE: 03/23/2018 17:49 SOURCE: Blood SITE: Reports Pre 03/24/2018 23:02 No growth at 1 day. Pre 03/24/2018 16:03 Culture less than 24 Hrs old == [facility]: [id number] ORDER: Culture Blood DATE: 03/23/2018 17:49 SOURCE: Blood SITE: Reports Pre 03/24/2018 23:02 No growth at 1 day. Pre 03/24/2018 16:03 Culture less than 24 Hrs old == . Impression and Plan 1. Group B streptococcus sepsis 03/19/18 in 4 out of 4 blood culture bottles positive at [facility] (spoke to Maurice Spencer, at [facility]). The high-grade bacteremia suggests intravascular source [...]
--- OUTSIDE RECORDS SUMMARY | 2025-01-01 09:04 | XMS_ITS | Encounter Summary ---
Author Organization [employer] ([place], [place], [place], [place], [place]) Address [address] [place] [address] Care Team Providers Care Loan Servicing Specialist Name Role Phone Unavailable Primary Care Provider Unavailabl e Encounter Details Date Type Department Care Team (Late st Contact Info) Description 03/27/2018 Transcribed Document [facility] [place] Family Medicine [address] [place] [address] ProviderZion MD [address] [place], [place] [phone] Social History Tobacco Use Types Packs/Day Years Used Date Smoking Tobacco: Never Assessed Comments Unknown Sex and Gender Information Value Date Recorded Sex Assigned at Not on file Legal Sex Female 4:39 PM CDT Gender Identity Not on file Sexual Orientation Not on file documented as of this encounter Miscellaneous Notes * Cerner Conversion Note - Historical ProviderMD - 03/27/2018 8:16 AM KOSHER SEALER Consult Phone Call Documentation Entered On: 03/27/2018 [...]
--- OUTSIDE RECORDS SUMMARY | 2025-01-01 09:04 | XMS_ITS | Encounter Summary ---
Author Organization [employer] ([place], [place], [place], [place], [place]) Address [address] [place] [address] Care Team Providers Care Corn Breeder Name Role Phone Unavailable Primary Care Provider Unavailabl e Encounter Details Date Type Department Care Team (Late st Contact Info) Description 03/24/2018 Transcribed Document [facility] [place] Family Medicine [address] [place] [address] ProviderZion MD [address] [place] [address] Social History Tobacco Use Types Packs/Day Years Used Date Smoking Tobacco: Never Assessed Comments Unknown Sex and Gender Information Value Date Recorded Sex Assigned at Not on file Legal Sex Female 4:39 PM CDT Gender Identity Not on file Sexual Orientation Not on file documented as of this encounter Miscellaneous Notes * Cerner Conversion Note - Historical ProviderMD - 03/24/2018 1:34 PM TAB MACHINE OPERATOR Consult Phone Call Documentation Entered On: 03/24/2018 14:54 EST Performed On: 03/24/2018 14:55 EST by MANE CARROLL Phone Call for Consults Consult Phone Call/Page Attempt : First call Consult Reason : Called in Consult on 03/24/18 at 1455 for: +positive blood cultures at [facility] perDr. Christian COLETHA - 03/24/2018 14:53 EST Electronically signed by [facility] Conversion Gill Tender Cerner at 05/29/2022 8:51 PM CDT documented in this encounter Plan of Treatment Not on file documented as of this encounter Visit Diagnoses Not on filedocumented in this encounter
--- OUTSIDE RECORDS SUMMARY | 2025-01-01 09:04 | XMS_ITS | Encounter Summary ---
Author Organization [employer] ([place], [place], [place], [place], [place]) Address [address] [place] [address] Care Team Providers Care Normalizer Name Role Phone Unavailable Primary Care Provider Unavailabl e Encounter Details Date Type Department Care Team (Late st Contact Info) Description 03/27/2018 Transcribed Document [facility] [place] [address] [place] [address] ProviderZion MD [address] [place] [address] Social History Tobacco Use Types [...] - Historical ProviderMD - 03/27/2018 10:33 AM LINEN ROOM HOUSEPERSON Care Management Assessment/Plan Entered On: 03/27/2018 10:34 [...] Patient History Note Report : DEEPA GALDAMEZ, Stain Remover - 03/26/18 17:47:16 Talked w/ this 57 [...] on 2gm IV rocephin, which [facility] says she will need until 04/20/18. Pt lives w/ her estranged spouse at located within [facility] address, claims she is indep [...]
--- OUTSIDE RECORDS SUMMARY | 2025-01-01 09:04 | XMS_ITS | Encounter Summary ---
Author Organization [employer] ([place], [place], [place], [place], [place]) Address [address] [place] [address] Care Team Providers Care Gear And Spline Grinder Name Role Phone Unavailable Primary Care Provider Unavailabl e Encounter Details Date Type Department Care Team (Late st Contact Info) Description 03/27/2018 Transcribed Document [facility] [place] [facility] [place] [address] ProviderZion MD [address] [place] [id number] Social History Tobacco Use Types Packs/Day Years Used Date Smoking Tobacco: Never Assessed Comments Unknown Sex and Gender Information Value Date Recorded Sex Assigned at Not on file Legal Sex Female 4:39 PM CDT Gender Identity Not on file Sexual Orientation Not on file documented as of this encounter Miscellaneous Notes * Cerner Conversion Note - Historical ProviderMD - 03/27/2018 9:05 AM PROGRAM MANAGER Patient: ETHAN LOREDO Age: 57 Years [...]
--- OUTSIDE RECORDS SUMMARY | 2025-01-01 09:04 | XMS_ITS | Referral Summary ---
Author Organization [employer] ([place], [place], [place], [place], [place]) Address [address] [place] [address] Care Team Providers Care Sericulture Teacher Name Role Phone Unavailable Primary Care [...]
--- OUTSIDE RECORDS SUMMARY | 2025-01-01 09:04 | XMS_ITS | Encounter Summary ---
Author Organization [employer] ([place], [place], [place], [place], [place]) Address [address] [place] [address] Care Team Providers Care Propeller Engineer Name Role Phone Unavailable Primary Care Provider Unavailabl e Encounter Details Date Type Department Care Team (Late st Contact Info) Description 03/27/2018 Transcribed Document [facility] Family Medicine [facility] [place] [address] ProviderZion MD [address] [place] [address] Social History Tobacco Use Types [...] - Historical ProviderMD - 03/27/2018 4:23 PM PLASTER MECHANIC Care Management Assessment/Plan Entered On: 03/27/2018 16:25 EST Performed On: 03/27/2018 16:23 EST by Stew Porras RN Care Management Note Anticipated Discharge Date : 04/03/2018 14:00 EST Care Management Note : blayne from [facility] ( ex 108) called to make bed offer. bed offers will be presented to pt 03/28. dtr will provide transportationashedmondson [phone] Care Management Note Report : Stew Porras [...] - 03/27/2018 16:23 EST Electronically signed by [facility] Conversion Rate Reviewer Cerner at 05/29/2022 8:47 PM CDT documented in this encounter Plan of Treatment Not on file documented as of this encounter Visit Diagnoses Not on filedocumented in this encounter
--- OUTSIDE RECORDS SUMMARY | 2025-01-01 09:04 | XMS_ITS | Encounter Summary ---
Author Organization [employer] ([place], [place], [place], [place], [place]) Address [address] [place] [address] Care Team Providers Care Consumer Loan Underwriter Name Role Phone Unavailable Primary Care Provider Unavailabl e Encounter Details Date Type Department Care Team (Late st Contact Info) Description 03/27/2018 Transcribed Document [facility] [place] [facility] [place] [address] ProviderZion MD [address] [place] [phone] Social History Tobacco Use Types Packs/Day Years Used Date Smoking Tobacco: Never Assessed Comments Unknown Sex and Gender Information Value Date Recorded Sex Assigned at Not on file Legal Sex Female 4:39 PM CDT Gender Identity Not on file Sexual Orientation Not on file documented as of this encounter Miscellaneous Notes * Cerner Conversion Note - Zion ProviderMD - 03/27/2018 10:05 AM FIELDWORK COORDINATOR Patient: ETHAN LOREDO Age: 57 Years Sex: [...] regurgitation. Electronically signed by Vinayak Azul Conversion Toggle Press Folder And Feeder Cerner at 05/29/2022 8:49 PM CDT documented in this encounter Plan of Treatment Not on file documented as of this encounter Visit Diagnoses Not on filedocumented in this encounter
--- OUTSIDE RECORDS SUMMARY | 2025-01-01 09:04 | XMS_ITS | Encounter Summary ---
Author Organization [employer] ([place], [place], [place], [place], [place]) Address [address] [place] [address] Care Team Providers Care Compensation Consulting Manager Name Role Phone Unavailable Primary Care Provider Unavailabl e Encounter Details Date Type Department Care Team (Late st Contact Info) Description 03/28/2018 Transcribed Document [facility] [place] [address] [place] [address] ProviderZion MD [address] [place], [place] [phone] Social History Tobacco Use Types Packs/Day Years Used Date Smoking Tobacco: Never Assessed Comments Unknown Sex and Gender Information Value Date Recorded Sex Assigned at Not on file Legal Sex Female 4:39 PM CDT Gender Identity Not on file Sexual Orientation Not on file documented as of this encounter Miscellaneous Notes * Cerner Conversion Note - Historical ProviderMD - 03/28/2018 2:00 AM INTELLIGENCE SPECIALIST Jewel Stringer Details Entered On: 03/28/2018 6:03 EST Performed [...]
--- OUTSIDE RECORDS SUMMARY | 2025-01-01 09:04 | XMS_ITS | Encounter Summary ---
Author Organization [employer] ([place], [place], [place], [place], [place]) Address [address] [place] [address] Care Team Providers Care Corn Sheller Operator Name Role Phone Unavailable Primary Care Provider Unavailabl e Encounter Details Date Type Department Care Team (Late st Contact Info) Description 03/27/2018 Transcribed Document [facility] [place] Family Medicine [facility] [place] [address] ProviderZion MD [address] [place] [phone] Social History Tobacco Use Types Packs/Day Years Used Date Smoking Tobacco: Never Assessed Comments Unknown Sex and Gender Information Value Date Recorded Sex Assigned at Not on file Legal Sex Female 4:39 PM CDT Gender Identity Not on file Sexual Orientation Not on file documented as of this encounter Miscellaneous Notes * Cerner Conversion Note - Zion Alonso MD - 03/27/2018 9:17 AM RETAIL TEAM LEADER Patient: ETHAN CRONIN Age: 57 years Sex: Female : 1960 Associated Diagnoses: None Author: CARROLL HIGH MD-INF Basic Information CC: Sepsis bacteremia 03/19/18 4/4 bottles for Group b strep ([facility]), mitral prosthetic valve endocarditis History [...] vancomycin and Rocephin. Urine culture obtained at [facility] [...] cefTRIAXone (Rocephin) - 2 Gram, IV Piggyback, [id number], infuse over 30 Minute(s), Routine Anticoagulant heparin [...] Normal strength, No tenderness. Integumentary: Warm, Dry, [place], No pallor, No rash, Left chest wall [...] 10) Troponin <0.015 (FEB 10) , ACC: [id number] ORDER: Culture Blood DATE: 03/23/2018 17:49 SOURCE: Blood SITE: Reports Pre 03/26/2018 23:01 No growth at 3 days. Pre 03/25/2018 23:01 No growth at 2 days. Pre 03/24/2018 23:02 No growth at 1 day. Pre 03/24/2018 16:03 Culture less than 24 Hrs old == ACC: [id number] ORDER: Culture Blood DATE: 03/23/2018 17:49 SOURCE: [...] of 4 blood culture bottles positive at [facility] (spoke to Maurice Spencer, at [facility]). BROCK consistent with mitral valve [...] and discussed with Dr. Perez's service, cardiology. costing manager: Please arrange for outpatient IV antibiotics with Rocephin 2 g IV every 12 hours until 05/04/18. Follow CBC, CMP, CRP weekly while on IV antibiotics. Fax orders to [phone], and call [phone] with final arrangements. Arrange for follow-up with me in 2 weeks post discharge. documented in this encounter Plan of Treatment Not on file documented as of this encounter Visit Diagnoses Not on filedocumented in this encounter
--- OUTSIDE RECORDS SUMMARY | 2025-01-01 09:04 | XMS_ITS | Encounter Summary ---
Author Organization [employer] ([place], [place], [place], [place], [place]) Address [address] [place] [address] Care Team Providers Care User Interface Developer Name Role Phone Unavailable Primary Care Provider Unavailabl e Encounter Details Date Type Department Care Team (Late st Contact Info) Description 03/28/2018 Transcribed Document [facility] [place] [address] [place] [address] ProviderZion MD [address] [place] [address] Social History Tobacco Use Types [...] - Historical ProviderMD - 03/28/2018 6:07 PM METAL FRAMER Care Management Assessment/Plan Entered On: 03/28/2018 18:12 EST Performed On: 03/28/2018 18:07 EST by Ninoska Cuellar Rn-Communication Assistant Ed Care Management Note Anticipated Discharge Date : 04/03/2018 14:00 EST Care Management Note : CM recieved call from Gama at [facility] stating they can take pt at their facility, but not until Saturday, as they now have an agreement with [facility]. CM then spoke with Edie from [facility] and she again confirms they can accept pt at their facility tomorrow. CM updated pt and now pt is agreeable to go to [facility]. She also gave CM permission to speak with Jazmine joshi by phone p [phone]. CM spoke with Jazmine and she is agreeable with plan for [facility], stating its much closer to them, approx 30 min. Pt tells CM that her PCP, Dr. Davis had told her that she was not able to do IV abx from home. Discharge plan will be to go to [facility] in the am. BLAKE updated Dr. Stauffer and he reports he will notify [facility] for tomorrow. CM will cont to follow for ongoing d/c planning/needs. Care Management Note Report : Ninoska Cuellar, Rn-Communication Assistant Ed - 03/28/18 16:01:02 [facility] home cost for [facility] is $3.70/wk. She states they may be able to contract with SNF to provide abx at pt's cost. She asked CM to have SNF call Paulo at their office to see about arranging. CM called MADELYN Corona with [facility] and [facility]. Updated [facility]. CM will cont to follow. Ninoska Cuellar, Rn-Communication Assistant Ed - 03/28/18 14:57:29 Called [place] and spoke with Chiquita and updated her on IV abx needs. SHe will check cost and call CM back to see if bed offer is still on the table. CM left for [facility] with [facility] to update her, left requesting return phone call. CM updated pt and she appears discouraged that [facility] will not accept her as a pt. She tells CM that she is considering just going home. BLAKE also called Clem with [facility] to argueta abx at home. She states that [facility] may also be able to contract with facility to provide them with abx at their cost. CM faxed info on pt and abx to [facility] f [phone]. CM updated [facility]. CM will cont to follow. Ninoska Cuellar, Rn-Communication Assistant Ed - 03/28/18 14:21:[address] Jones this and he tells CM that pt is ready for discharge from his standpoint and that ID has a plan in place for IV abx. PT does have a PICC in place. Recieved VM from [facility] with [facility] p [phone] stating they are interested in pt. CM went to [facility] to speak with pt to discuss bed offers. CM presented bed offers and pt tells CM that she really doesn't want to go to another facility. Pt tells CM that she only wants to go to [facility], as she has been there in the past. [facility] had not make bed offer at this [...] updates, as well as faxed updates f [phone]. She states they will reevaluate now, knowing [...] pt at this time due to the $5249-7024 IV rocephin cost through 05/04/[address] Diaz orders. Cm to follow for ongoing d/c planning/needs. Stew Porras RN - 03/27/18 16:25:12 edie from [facility] ( [phone]) called to make bed offer. bed offers will be presented to pt 03/28. dtr will provide transportationashparachute [phone] Stew Porras RN - 03/27/18 15:00:29 spoke to ID who states pt maybe ready for dc as early as 03/28. id and attending PA are recommending SNF. spoke with pt and her dtr, jazmine and informed them of suggestion from drs to dc to snf for iv abx. pt and dtr in agreement and referrlas made via [facility] to the following counties.... [place]. Stew Porras RN - 03/27/18 10:34:34 RRS-[id number] + for [facility] consulted and per ID, infection must clear prior to any ant surgical intervention Currnelty on rocephin iv w/bld cx pending Documentation Status Complete : Yes Ninoska Cuellar, Rn-Communication Assistant Ed - 03/28/2018 18:07 EST Electronically signed by Jorge Alberto, [facility] Conversion Special Weapons Unit Officer Cerner at 05/29/2022 8:35 PM CDT documented in this encounter Plan of Treatment Not on file documented as of this encounter Visit Diagnoses Not on filedocumented in this encounter
--- OUTSIDE RECORDS SUMMARY | 2025-01-01 09:04 | XMS_ITS | Encounter Summary ---
Author Organization [employer] ([place], [place], [place], [place], [place]) Address [address] [place] [address] Care Team Providers Care Torpedo Shooter Name Role Phone Unavailable Primary Care Provider Unavailabl e Encounter Details Date Type Department Care Team (Late st Contact Info) Description 03/27/2018 Transcribed Document [facility] [place] [address] [place] [address] ProviderZion MD [address] [place] [address] Social History Tobacco Use Types [...] - Historical ProviderMD - 03/27/2018 2:00 AM TEAMCENTER SOLUTION ARCHITECT Seed Production Field Supervisor Details Entered On: 03/27/2018 5:00 EST Performed [...]
--- OUTSIDE RECORDS SUMMARY | 2025-01-01 09:05 | XMS_ITS | Encounter Summary ---
Author Organization [employer] ([place], [place], [place], [place], [place]) Address [address] [place] [address] Care Team Providers Care Selector Packer Name Role Phone Unavailable Primary Care Provider Unavailabl e Encounter Details Date Type Department Care Team (Late st Contact Info) Description 03/23/2018 Transcribed Document [facility] [place] [facility] [address] [place] [address] ProviderZion MD [address] [place], [place] [id number] Social History Tobacco Use Types Packs/Day Years Used Date Smoking Tobacco: Never Assessed Comments Unknown Sex and Gender Information Value Date Recorded Sex Assigned at Not on file Legal Sex Female 4:39 PM CDT Gender Identity Not on file Sexual Orientation Not on file documented as of this encounter Miscellaneous Notes * Cerner Conversion Note - Zion ProviderMD - 03/23/2018 6:37 PM SALES SUPPORT ASSISTANT Patient: ETHAN CRONIN Age: 57 years Sex: Female : 1960 Associated Diagnoses: None Author: Anastacia Roth, Pharm.D.-Resident HPI: 57 year old female transferred from [facility] due to bradycardia during infusion. Pt has hx of CAD, CABG/pacemaker 3 years ago, DM, HTN, and MO. Pt also has hx of bacteremia and was on antibitoics outpatient and pt cannot confirm what abx she was on. Pharmacist called [facility] and confirmed that pt did not receive any antibiotics while she was at the hospital. Pharmacy consulted to dose vancomycin for bacteremia Consult: vancomycin Indication: bacteremia Goal of Trough: 12-18 mcg/mL Consulting MD: Omar Nelsno ID on Board: consulted Allergies: No known [...] will continue to follow Jameson SummersD PGY-1 Central Office Maintainer [phone] documented in this encounter Plan of Treatment Not on file documented as of this encounter Visit Diagnoses Not on filedocumented in this encounter
--- OUTSIDE RECORDS SUMMARY | 2025-01-01 09:05 | XMS_ITS | Encounter Summary ---
Author Organization [employer] ([place], [place], [place], [place], [place]) Address [address] [place] [address] Care Team Providers Care Meat Puller Name Role Phone Unavailable Primary Care Provider Unavailabl e Encounter Details Date Type Department Care Team (Late st Contact Info) Description 05/07/2018 Transcribed Document [facility] [place] [address] [place] [address] ProviderZion MD [address] [place] [address] Social History Tobacco Use Types [...] Source : Stated Height Entry Format : [place] Height, Feet : 5 ft(Converted to: 152 cm, 60 Inch) Height, Inches : 1 Inch(Converted to: 0 ft 1 Inch, 2.54 cm) Clinical Height : 154.94 cm Weight Source : Standing scale Weight Entry Format : [place] Clinical Dosing Weight : 74.09 kg Weight, Pounds : 163 lb Body Surface Area (BSA) : 1.73 m2 Body Mass Index : 30.9 kg/m2 (HI) [place] Body Weight : 47 kg GAYLA CASE [...] : daughter Emergency Contact #1 Relationship : [phone] Emergency Contact #2 : . Emergency Contact #2 Phone Number : . Emergency Contact #2 Relationship : . Primary Language : Haitian Preferred Communication Mode : Verbal Communication Barrier [...] Scale Risk Level : 25-45 Medium Risk [place] Fall Interventions : Adequate lighting, Assistive devices within reach, Personal items within reach, Reinforced to call for assistance before getting out of bed GAYLA CASE RN - 05/07/2018 11:33 EDT Valuables and Belongings Valuables and Belongings : Clothing Clothing : Common streetwear Clothing Disposition : Bedside, With family EVIEGAYLA RN - 05/07/2018 11:33 EDT Electronically signed by Jorge Alberto [facility] Conversion Supervisor Slitting And Shipping Cerner at 05/29/2022 8:46 PM CDT documented in this encounter Plan of Treatment Not on file documented as of this encounter Visit Diagnoses Not on filedocumented in this encounter
--- OUTSIDE RECORDS SUMMARY | 2025-01-01 09:05 | XMS_ITS | Encounter Summary ---
Author Organization [employer] ([place], [place], [place], [place], [place]) Address [address] [place] [address] Care Team Providers Care Buffet Attendant Name Role Phone Unavailable Primary Care Provider Unavailabl e Encounter Details Date Type Department Care Team (Late st Contact Info) Description 03/23/2018 Transcribed Document [facility] [place] Family Medicine [address] [place] [address] ProviderZion MD [address] [place], [place] [id number] Social History Tobacco Use Types Packs/Day Years Used Date Smoking Tobacco: Never Assessed Comments Unknown Sex and Gender Information Value Date Recorded Sex Assigned at Not on file Legal Sex Female 4:39 PM CDT Gender Identity Not on file Sexual Orientation Not on file documented as of this encounter Miscellaneous Notes * Cerner Conversion Note - Zion ProviderMD - 03/23/2018 7:32 PM VALVE INSPECTOR DATE OF ADMISSION: 03/23/2018 PRIMARY CARE PHYSICIAN: [...] has been evaluated there and transferred to [facility]. Patient was at [facility] ER, came in, laying in bed, [...] Trans: 03/23/2018 20:42:51 CC1: Omar Nelson M.D. Electronically signed by Vinayak Azul Conversion Technical Illustrations Map Inker Cerner at 05/29/2022 8:52 PM CDT documented in this encounter Plan of Treatment Not on file documented as of this encounter Visit Diagnoses Not on filedocumented in this encounter
--- OUTSIDE RECORDS SUMMARY | 2025-01-01 09:05 | XMS_ITS | Clinical Summary ---
Author Organization [facility] Address [address] [place] [address] Care Team Providers Care Physical Therapy Assistant Instructor Name Role Phone Cosme Davis MD Primary Care Provider [phone] Allergies No known active allergies Medications * [...] Dose 81 MG EC tablet 4 Active HYDROcodone-ina taminophen ([place]) 5-325 MG tablet 5 Active insulin syringe-needle [...] OF 80 UNITS PER DAY 5 Active Active Problems Problem Noted Date Diagnosed [...] 11/13/2024 11:59 PM EDT Hospital Encounter [facility] Radiology [address] 1st [place] [address] Pain in pelvis Discharge Disposition: Home or Self Care 11/13/2024 11:20 AM EDT Office Visit [facility] Orthopaedic Surgery & Sports Medicine [address], 1st [address] [place] [address] Paulo Marquis MD Pain in pelvis (Primary Dx) 11/13/2024 Travel 10/19/2024 Travel 10/18/2024 Travel 10/16/2024 Travel 10/14/2024 Travel 10/13/2024 Travel 10/12/2024 Orders Only External Location [address] [place] [address] Tito Madrid MD 10/12/2024 Orders Only External Location [address] [place] [address] Tito Madrid MD 10/12/2024 Orders Only External Location [address] [place] [address] Tito Madrid MD 10/12/2024 Travel from Last [...] and Family Not on file 10/13/2024 Attends [employer]ism Services Not on file 10/13 Active Member [...] any time in the past 12 [facility], were you homeless or living in a correction (including now)? No 10/13/2024 [facility] Utilities Answer Date Recorded In the [...] 01/21/2025 1:[address] [facility] Vascular Lab [address] 5[address] [place] [address] 01/21/2025 2:[address] [facility] [address] 5th Floor [address] [place] [address] 01/21/2025 2:40 PM EST Office Visit [facility] [address] 5th Floor [address] [place] [address] Jose Rosario MD [address] [facility] [address] [place] [address] Health Maintenance Due Date Last Done Comments [facility]-Depression Screening 1960 [facility]-Medicare Annual Wellness (AWV) 1960 [facility]-/Child/Adol SDOH Screenings 1960 [id number] Vaccine (#1) 06/04/1967 Diabetes: Dental Exam 1972 [...] HORMONE (ACTH) Routine 10/16/2024 8:11 AM EDT ID CRITICAL CARE, E/M 30-74 MINUTES Routine 10/16/2024 [...] EDT CORTISOL Routine 10/15/2024 8:29 AM EDT ID CRITICAL CARE, E/M 30-74 MINUTES Routine 10/15/2024 [...] KNOWN SYPHILIS) Routine 10/14/2024 9:44 AM EDT ID CRITICAL CARE, E/M 30-74 MINUTES Routine 10/14/2024 8:59 AM EDT Closed fracture of ramus of right pubis, initial encounter ([facility]) Shock ([facility]) XR CHEST 1 VIEW STAT [...] Routine 10/13/2024 9:26 AM EDT Shock (CMS/HCC) ID INSERT NON-TUNNEL CV CATH Routine 10/13/2024 9:26 AM EDT Shock (CMS/HCC) XR CHEST 1 VIEW STAT 10/13/2024 9:25 AM EDT HC INSERT CATH,ART,PERCUT,SHORTTERM Routine 10/13/2024 9:09 AM EDT Shock (CMS/HCC) ID INSERT CATH,ART,PERCUT,SHORTTERM Routine 10/13/2024 9:09 AM EDT [...] 11:55 PM EDT ANTIBODY IDENTIFICATION Routine 10/13/19 11:55 PM EDT ED HIV 1/2 ANTIBODY/ANTIGEN [...] of87 resultswithin the time period is included. [facility] POCT Glucose 251(H) 74 - 99 mg/dL 10/30/2024 12:01 PM EDT HEALTHCARE LAB Comment:Accuracy of a glucos e [...] Comment 10/30/2024 12:01 PM EDT HEALTHCARE LAB Survey Workers Supervisor ID Jessika Schneider 025 12:01 PM EDT HEALTHCARE LAB Device ID [id number] 10/30/2024 12:01 PM EDT HEALTH[facility]ARE LAB Specimen Type POC Capillary 10/30/2024 12:01 PM EDT [facility]ARE [facility] Blood Capillary blood specimen / Unknown 10/30/2024 11:58 AM EDT 10/30/2024 12:01 PM EDT us Tiffany Patten DO LAB POINT OF CARE TE ST DOCKED DEVICE UNSOLICITED RESULTS Final Result Performing Organization Address City/State/[facility] Co de Phone Number HEALTHCARE LAB [address] [place] [address] * (ABNORMAL) CBC W/O Differential (10/28/2024 3:43 AM EDT) Only the most recent of4 resultswithin the time period is included. [facility] WBC Count 9.69 3.70 - 10.30 10*3/uL LAB HEMATOLOGY METHOD 10/28/2024 4:21 AM EDT [facility] RBC Count 2.95(L) 3.90 - 5.20 10*6/uL LAB HEMATOLOGY METHOD 10/28/2024 4:21 AM EDT [facility] HGB 8.3(L) 11.2 - 15.7 g/dL LAB HEMATOLOGY METHOD 10/28/2024 4:21 AM EDT [facility] HCT 27.0(L) 34.0 - 45.0 % LAB HEMATOLOGY METHOD 10/28/2024 4:21 AM EDT [facility] Platelet Count 363 155 - 369 10*3/uL LAB HEMATOLOGY METHOD 10/28/2024 4:21 AM EDT [facility] MCV 92 79 - 98 fL LAB HEMATOLOGY METHOD 10/28/2024 4:21 AM EDT [facility] MCH 28.1 26.0 - 32.0 pg LAB HEMATOLOGY METHOD 10/28/2024 4:21 AM EDT [facility] MCHC 30.7 30.7 - 35.5 g/dL LAB HEMATOLOGY METHOD 10/28/2024 4:21 AM EDT [facility] RDW 24.8(H) 11.5 - 14.5 % LAB HEMATOLOGY METHOD 10/28/2024 4:21 AM EDT [facility] MPV 11.9 8.8 - 12.5 fL LAB HEMATOLOGY METHOD 10/28/2024 4:21 AM EDT [facility] nRBC 0.0 <=0.0 per 100 WBCs LAB HEMATOLOGY METHOD 10/28/2024 4:21 AM EDT [facility] Blood Venous blood specimen / Unknown Venipuncture / Unknown 10/28/2024 3:43 AM EDT 10/28/2024 4:13 AM EDT Tiffany Patten LAB BLOOD ORDERABLES Final Re sult Performing Organization Address City/[facility] Co de Phone Number HEALTHCARE LAB [address] [place] [address] * Magnesium, Plasma (10/28/2024 3:43 AM EDT) Only the most recent of5 resultswithin the time period is included. Magnesium, Plasma 2.2 1.9 - 2.4 mg/dL 10/28/2024 4:42 AM EDT HEALTHCARE LAB Blood Venous blood specimen / Unknown Venipuncture / Unknown 10/28/2024 3:43 AM EDT 10/28/2024 4:13 AM EDT Tiffany Patten DO LAB BLOOD ORDERABLES Final Re sult [facility]ARE [facility] [address] [place] [address] * (ABNORMAL) Renal Function Panel, Plasma (10/28/2024 3:43 AM EDT) [facility] Glucose, Plasma 276(H) 74 - 99 mg/dL 10/28/2024 4:42 AM EDT [facility] BUN, Plasma 89(H) 8 - 23 mg/dL 10/28/2024 4:42 AM EDT [facility] Creatinine, Plasma 2.19(H) 0.60 - 1.10 mg/dL 10/28/2024 4:42 AM EDT [facility] BUN/Creatinine Ratio 41 10/28/2024 4:42 AM EDT [facility] Sodium, Plasma 138 136 - 145 mmol/L 10/28/2024 4:42 AM EDT [facility] Potassium, Plasma 5.1(H) 3.6 - 4.9 mmol/L 10/28/2024 4:42 AM EDT [facility] Chloride, Plasma 102 97 - 107 mmol/L 10/28/2024 4:42 AM EDT [facility] CO2, Plasma 25 22 - 29 mmol/L 10/28/2024 4:42 AM EDT [facility] Anion Gap 11 6 - 16 mmol/L 10/28/2024 4:42 AM EDT [facility] Total Calcium, Plasma 8.9 8.9 - 10.2 mg/dL 10/28/2024 4:42 AM EDT [facility] Phosphorus, Plasma 2.8 2.5 - 4.5 mg/dL 10/28/2024 4:42 AM EDT [facility] Albumin, Plasma 3.0(L) 3.5 - 5.2 g/dL 10/28/2024 4:42 AM EDT [facility] eGFRcr 24.9 mL/min/1.7 3m*2 10/28/2024 4:42 AM EDT [facility] Comment:Reported eGFRcr in m L/min/1.73m2 is based the CKD-EPI 2020 equation that does not use a race coefficient. Blood Venous blood specimen / Unknown Venipuncture / Unknown 10/28/2024 3:43 AM EDT 10/28/2024 4:13 AM EDT Tiffany Patten DO LAB BLOOD ORDERABLES Final Re sult [facility] [address] [place] [address] * (ABNORMAL) CBC and differential (10/26/2024 9:19 AM EDT) Only the most recent of11 resultswithin the time period is included. WBC Count 9.12 3.70 - 10.30 10*3/uL LAB HEMATOLOGY METHOD 10/26/2024 9:25 AM EDT [facility] RBC Count 3.03(L) 3.90 - 5.20 10*6/uL LAB HEMATOLOGY METHOD 10/26/2024 9:25 AM EDT [facility] HGB 8.5(L) 11.2 - 15.7 g/dL LAB HEMATOLOGY METHOD 10/26/2024 9:25 AM EDT [facility] HCT 27.1(L) 34.0 - 45.0 % LAB HEMATOLOGY METHOD 10/26/2024 9:25 AM EDT [facility] Platelet Count 331 155 - 369 10*3/uL LAB HEMATOLOGY METHOD 10/26/2024 9:25 AM EDT [facility] MCV 89 79 - 98 fL LAB HEMATOLOGY METHOD 10/26/2024 9:25 AM EDT [facility] MCH 28.1 26.0 - 32.0 pg LAB HEMATOLOGY METHOD 10/26/2024 9:25 AM EDT [facility] MCHC 31.4 30.7 - 35.5 g/dL LAB HEMATOLOGY METHOD 10/26/2024 9:25 AM EDT [facility] RDW 24.6(H) 11.5 - 14.5 % LAB HEMATOLOGY METHOD 10/26/2024 9:25 AM EDT [facility] MPV 11.4 8.8 - 12.5 fL LAB HEMATOLOGY METHOD 10/26/2024 9:25 AM EDT [facility] nRBC 0.0 <=0.0 per 100 WBCs LAB HEMATOLOGY METHOD 10/26/2024 9:25 AM EDT [facility] Differential Type Automated LAB HEMATOLOGY METHOD 10/26/2024 9:25 AM EDT [facility] Neutrophils % 76 % LAB HEMATOLOGY METHOD 10/26/2024 9:25 AM EDT [facility]ALTH[facility]ARE LAB Lymphocytes % 13 % LAB HEMATOLOGY METHOD 10/26/2024 9:25 AM EDT [facility] Monocytes % 7 % LAB HEMATOLOGY METHOD 10/26/2024 9:25 AM EDT [facility] Eosinophils % 3 % LAB HEMATOLOGY METHOD 10/26/2024 9:25 AM EDT [facility] Basophils % 1 % LAB HEMATOLOGY METHOD 10/26/2024 9:25 AM EDT [facility] Immature Granulocytes % 0 % LAB HEMATOLOGY METHOD 10/26/2024 9:25 AM EDT [facility] Neutrophils Absolute 6.90(H) 1.60 - 6.10 10*3/uL LAB HEMATOLOGY METHOD 10/26/2024 9:25 AM EDT HEALTHCARE [facility] Lymphocytes Absolute 1.22 1.20 - 3.90 10*3/uL LAB HEMATOLOGY METHOD 10/26/2024 9:25 AM EDT [facility] Monocytes Absolute 0.60 0.30 - 0.90 10*3/uL LAB HEMATOLOGY METHOD 10/26/2024 9:25 AM EDT [facility] Eosinophils Absolute 0.31 0.00 - 0.50 10*3/uL LAB HEMATOLOGY METHOD 10/26/2024 9:25 AM EDT [facility] Basophils Absolute 0.05 0.00 - 0.10 10*3/uL LAB HEMATOLOGY METHOD 10/26/2024 9:25 AM EDT [facility] Immature Granulocytes Absolute 0.04 0.00 - 0.06 10*3/uL LAB HEMATOLOGY METHOD 10/26/2024 9:25 AM EDT [facility] Blood Venous blood specimen / Unknown Venipuncture / Unknown 10/26/2024 9:19 AM EDT 10/26/2024 9:23 AM EDT Narrative HEALTHCARE LAB - 10/26/2024 9:25 AM EDT Therapeutic decision making should be based on absolute values, rather than percentages. us Yuriy Lockett MD LAB BLOOD ORDERABLES Final Resul t [facility] [address] [place] [address] * (ABNORMAL) Basic metabolic panel (10/26/2024 9:19 AM EDT) Only the most recent of10 resultswithin the time period is included. Glucose, Plasma 244(H) 74 - 99 mg/dL 10/26/2024 9:49 AM EDT [facility] BUN, Plasma 76(H) 8 - 23 mg/dL 10/26/2024 9:49 AM EDT [facility] Creatinine, Plasma 1.97(H) 0.60 - 1.10 mg/dL 10/26/2024 9:49 AM EDT [facility] BUN/Creatinine Ratio 39 10/26/2024 9:49 AM EDT [facility] Sodium, Plasma 138 136 - 145 mmol/L 10/26/2024 9:49 AM EDT [facility] Potassium, Plasma 5.0(H) 3.6 - 4.9 mmol/L 10/26/2024 9:49 AM EDT [facility] Chloride, Plasma 102 97 - 107 mmol/L 10/26/2024 9:49 AM EDT [facility] CO2, Plasma 25 22 - 29 mmol/L 10/26/2024 9:49 AM EDT [facility] Anion Gap 11 6 - 16 mmol/L 10/26/2024 9:49 AM EDT [facility] Total Calcium, Plasma 8.7(L) 8.9 - 10.2 mg/dL 10/26/2024 9:49 AM EDT [facility] eGFRcr 28.3 mL/min/1.7 3m*2 10/26/2024 9:49 AM EDT [facility] Comment:Reported eGFRcr in m L/min/1.73m2 is based the CKD-EPI 2020 equation that does not use a race coefficient. Blood Venous blood specimen / Unknown Venipuncture / Unknown 10/26/2024 9:19 AM EDT 10/26/2024 9:23 AM EDT us Yuiry Lockett MD LAB BLOOD ORDERABLES Final Resul t [facility] [address] [place] [address] * (ABNORMAL) Hemoglobin and Hematocrit, Blood (10/25/2024 12:23 PM EDT) Only the most recent of11 resultswithin the time period is included. HGB 8.1(L) 11.2 - 15.7 g/dL LAB HEMATOLOGY METHOD 10/25/2024 12:30 PM EDT [facility] HCT 25.4(L) 34.0 - 45.0 % LAB HEMATOLOGY METHOD 10/25/2024 12:30 PM EDT HEALTHCARE LAB Blood Venous blood specimen / Unknown Venipuncture / Unknown 10/25/2024 12:23 PM EDT 10/25/2024 12:27 PM EDT Yuriy Lockett MD LAB BLOOD ORDERABLES Final Resul t Performing Organization Address City/[facility] de Phone Number HEALTHCARE LAB [address] [place] [address] * (ABNORMAL) Potassium (10/23/2024 10:26 AM EDT) Only the most recent of3 resultswithin the time period is included. Potassium, Plasma 5.2(H) 3.6 - 4.9 mmol/L 10/23/2024 10:53 AM EDT HEALTH[facility]ARE [facility] Blood Venous blood specimen / Unknown Venipuncture / Unknown 10/23/2024 10:26 AM EDT 10/23/2024 10:33 AM EDT us Yuriy Lockett MD LAB BLOOD ORDERABLES Final Resul t Performing Organization Address City/[facility] de Phone Number [facility] [address] [place] [address] * ECG Adult (10/23/2024 8:22 AM EDT) Only the most recent of4 resultswithin the time period is included. EKG DIAGNOSIS CLASS Abnormal MUSE ECG Ventricular Rate 85 BPM MUSE ECG QRSD Interval 94 ms MUSE ECG QT Interval 378 ms MUSE ECG QTC Interval 449 ms MUSE ECG R [place] 23 degrees MUSE ECG T Wave [place] 124 degrees MUSE ECG Diagnosis Atrial fibrillation [...] ORDERABLES F inal Result Performing Organization Address City/[facility]/ZIP Co de Phone Number BLOOD BANK [address] [place] [address], [place] * Antibody Identification (10/22/2024 7:04 PM EDT) Only the most recent of3 resultswithin the time period is included. Antibody ID Anti-E Non-specif ic Patricia 10/22/2024 8:04 PM EDT BLOOD BANK Blood Venous blood specimen / Unknown Venipuncture / Unknown 10/22/2024 7:04 PM EDT 10/22/2024 7:08 PM EDT Yuriy Lockett MD LAB BLOOD BANK TEST ORDERABLES F inal Result Performing Organization Address [facility] Co de Phone Number BLOOD BANK [address] [place] [address], [place] * (ABNORMAL) Type and screen (10/22/2024 [...] ORDERABLES F inal Result Performing Organization Address [facility] de Phone Number BLOOD BANK [address] [place] [address], * Prepare Leukocyte Reduced RBC: 1 Units (10/22/2024 5:02 PM EDT) Only the most recent of3 resultswithin the time period is included. Product Code [id number] GS BLOO D BANK Dispense Status Transfused BLOOD BANK Blood Expiration Date [id number] BLOOD BANK Unit Number [id number] B LOOD BANK Product Blood Type 5100 BLOOD BANK Blood Type O+ BLOOD BANK Crossmatch Compatible BLOOD BANK Other Yuriy Lockett MD BLOOD BANK PRODUCT ORDERABLES Fi nal Result Performing Organization Address [facility] de Phone Number BLOOD BANK [address] [place] [address], [place] * XR Knee Right 3 Views [...] - 4.5 mg/dL 10/17/2024 1:43 AM EDT [facility] Blood Venous blood specimen / Unknown Venipuncture / Unknown 10/17/2024 1:04 AM EDT 10/17/2024 1:14 AM EDT us Aidan Harrison MD LAB BLOOD ORDERABLES Final Res ult [facility] [address] [place] [address] * (ABNORMAL) Comprehensive metabolic panel (10/17/2024 1:04 AM EDT) Only the most recent of4 resultswithin the time period is included. Glucose, Plasma 138(H) 74 - 99 mg/dL 10/17/2024 1:43 AM EDT [facility] BUN, Plasma 50(H) 8 - 23 mg/dL 10/17/2024 1:43 AM EDT [facility] Creatinine, Plasma 1.74(H) 0.60 - 1.10 mg/dL 10/17/2024 1:43 AM EDT [facility] BUN/Creatinine Ratio 29 10/17/2024 1:43 AM EDT [facility] Sodium, Plasma 141 136 - 145 mmol/L 10/17/2024 1:43 AM EDT [facility] Potassium, Plasma 4.0 3.6 - 4.9 mmol/L 10/17/2024 1:43 AM EDT [facility] Chloride, Plasma 114(H) 97 - 107 mmol/L 10/17/2024 1:43 AM EDT [facility] CO2, Plasma 16(L) 22 - 29 mmol/L 10/17/2024 1:43 AM EDT [facility] Anion Gap 11 6 - 16 mmol/L 10/17/2024 1:43 AM EDT [facility] Total Calcium, Plasma 8.2(L) 8.9 - 10.2 mg/dL 10/17/2024 1:43 AM EDT [facility] Total Protein 5.2(L) 6.3 - 7.9 g/dL 10/17/2024 1:43 AM EDT [facility] Albumin, Plasma 2.9(L) 3.5 - 5.2 g/dL 10/17/2024 1:43 AM EDT [facility] AST, Plasma 15 10 - 35 U/L 10/17/2024 1:43 AM EDT [facility] ALT, Plasma 5(L) 10 - 35 U/L 10/17/2024 1:43 AM EDT [facility] Alkaline Phosphatase, Plasma 85 46 - 142 U/L 10/17/2024 1:43 AM EDT [facility] Total Bilirubin, Plasma 0.2 0.2 - 1.1 mg/dL 10/17/2024 1:43 AM EDT [facility] eGFRcr 32.8 mL/min/1.7 3m*2 10/17/2024 1:43 AM EDT [facility] Comment:Reported eGFRcr in m L/min/1.73m2 is based the CKD-EPI 2020 equation that does not use a race coefficient. Blood Venous blood specimen / Unknown Venipuncture / Unknown 10/17/2024 1:04 AM EDT 10/17/2024 1:14 AM EDT us Aidan Harrison MD LAB BLOOD ORDERABLES Final Res ult [facility] [address] [place] [address] * [place] Modified Barium Swallow (10/16/2024 3:05 [...] sips by the cup or the teaspoon. [place] consistency (IDDSI 2): There is no aspiration [...] sips by the cup or the teaspoon. [place] consistency (IDDSI 2): There is no aspiration [...] 5.82 ng/mL/h 10/20/2024 12:14 PM EDT [facility] ([facility]) Comment: This test was developed and its analytical performance characteristics have been determined by [employer]. It has not been cleared or approved by the FDA. This assay has been validated pursuant to the CLIA regulations and is used for clinical purposes. Blood Venous blood specimen / Unknown Venipuncture / Unknown 10/16/2024 8:11 AM EDT 10/16/2024 8:22 AM EDT Narrative [facility] ([facility]) - 10/20/2024 12:14 PM EDT Performing Organization Information: Site ID: [id number] Name: [employer] Address: [address] [place] [id number] Director: Enedina Thao MD, PhD Aidan Harrison MD LAB BLOOD ORDERABLES Final Res ult [facility] ([facility]) [employer] [address] * (ABNORMAL) ACTH (10/16/2024 8:11 AM EDT) Only the most recent of2 resultswithin the time period is included. ACTH 5.45(L) 7.2 - 63 pg/mL 10/16/2024 11:38 AM EDT [facility] Blood Venous blood specimen / Unknown Venipuncture / Unknown 10/16/2024 8:11 AM EDT 10/16/2024 8:42 AM EDT Aidan Harrison MD LAB BLOOD ORDERABLES Final Res ult [facility] [address] [place] [address] * Folate (10/16/2024 8:11 AM EDT) Folate, Serum 8.2 >4.6 ng/mL 10/16/2024 9:29 AM EDT [facility] Blood Venous blood specimen / Unknown Venipuncture / Unknown 10/16/2024 8:11 AM EDT 10/16/2024 8:34 AM EDT Aidan Harrison MD LAB BLOOD ORDERABLES Final Res ult Performing Organization Address City/[facility]/[place] [address] * Ferritin (10/16/2024 8:11 AM EDT) Ferritin, Serum 73 13 - 150 ng/mL 10/16/2024 9:[address] [facility] Blood Venous blood specimen / Unknown Venipuncture / Unknown 10/16/2024 8:11 AM EDT 10/16/2024 8:34 AM EDT Aidan Harrison MD LAB BLOOD [place] [address] * Vitamin B12 (10/16/2024 8:11 AM EDT) Vitamin B12, Serum 906 210 - 1,033 pg/mL 10/16/2024 9:29 AM EDT [facility] Blood Venous blood specimen / Unknown Venipuncture / Unknown 10/16/2024 8:11 AM EDT 10/16/2024 8:34 AM EDT Aidan Harrison MD LAB BLOOD ORDERABLES Final Res ult [facility] [address] [place] [address] * ID CRITICAL CARE, E/M 30-74 MINUTES (10/16/2024 6:41 [...] the findings and plan as documented. Result [facility] Aidan Harrison MD IN CLINIC/BEDSIDE ORDERABLES F inal Result * (ABNORMAL) Iron & Total Iron Binding Capacity, Plasma (Includes Transferrin) (10/16/2024 12:09 AM EDT) Iron, Plasma 21(L) 30 - 160 ug/dL 10/16/2024 7:15 AM EDT [facility] Transferrin, Plasma 159(L) 200 - 360 mg/dL 10/16/2024 7:15 AM EDT [facility] Total Iron Binding Capacity, Plasma 199(L) 240 - 450 ug/mL 10/16/2024 7:15 AM EDT [facility] Transferrin Saturation 11(L) 14 - 50 % 10/16/2024 7:15 AM EDT [facility] Blood Venous blood specimen / Unknown Venipuncture / Unknown 10/16/2024 12:09 AM EDT 10/16/2024 12:37 AM EDT Aidan Harrison MD LAB BLOOD ORDERABLES Final Res ult Performing Organization Address [facility] Co de Phone Number [facility] [address] [place] [address] * CORTISOL, 60 (10/15/2024 1:29 PM EDT) Cortisol Time=60 36.10 Before 10am: 3.7 - 19.4. After 5pm: 2.9 - 17.3 ug/dL 10/15/2024 3:46 PM EDT [facility] Comment:Administer cosyntrop in and obtain serum cortisol a Blood Venous blood specimen / Unknown Venipuncture / Unknown 10/15/2024 1:29 PM EDT 10/15/2024 2:03 PM EDT Aidan Harrison MD LAB BLOOD ORDERABLES Final Res ult Performing Organization Address [facility] Co de Phone Number [facility] [address] [place] [address] * Cortisol, 30 (10/15/2024 12:55 PM EDT) Cortisol,Time=30 31.20 Before 10am: 3.7 - 19.4. After 5pm: 2.9 - 17.3 ug/dL 10/15/2024 2:42 PM EDT [facility] Comment:Administer cosyntrop in and obtain serum cortisol a Blood Venous blood specimen / Unknown Venipuncture / Unknown 10/15/2024 12:55 PM EDT 10/15/2024 1:21 PM EDT Aidan Harrison MD LAB BLOOD ORDERABLES Final Res ult Performing Organization Address City/[facility]/ZIP Co de Phone Number [facility] [address] [place] [address] * Aldosterone (10/15/2024 12:08 PM EDT) Aldosterone 23.0 4.0 - 31.0 ng/dL 10/16/2024 1:35 AM EDT [facility] Blood Venous blood specimen / Unknown Venipuncture / Unknown 10/15/2024 12:08 PM EDT 10/15/2024 2:08 PM EDT Aidan Harrison MD LAB BLOOD ORDERABLES Final Res ult Performing Organization Address [facility] Co de Phone Number [facility] [address] [place] [address] * Cortisol Baseline (10/15/2024 12:08 PM EDT) Cortisol (Baseline) 11.60 Before 10am: 3.7 - 19.4. After 5pm: 2.9 - 17.3 ug/dL 10/15/2024 2:07 PM EDT [facility] Comment:Administer cosyntrop in and obtain serum cortisol a Blood Venous blood specimen / Unknown Venipuncture / Unknown 10/15/2024 12:08 PM EDT 10/15/2024 12:14 PM EDT Aidan Harrison MD LAB BLOOD ORDERABLES Final Res ult Performing Organization Address [facility] Co de Phone Number [facility] [address] [place] [address] * Cortisol (10/15/2024 8:29 AM EDT) Cortisol 9.60 Before 10am: 3.7 - 19.4. After 5pm: 2.9 - 17.3 ug/dL 10/15/2024 9:29 AM EDT [facility] Comment:Testing performed on [employer], standardized against MCFP Reference Standard concentration values assigned by LC-MS/MS and verified by BCR 192 and BCR 193 certified reference materials. Blood Venous blood specimen / Unknown Venipuncture / Unknown 10/15/2024 8:29 AM EDT 10/15/2024 8:38 AM EDT us Aidan Harrison MD LAB REF LAB BLOOD AND FLUID OR D Final Result [facility] [address] [place] [address] * ID CRITICAL CARE, E/M 30-74 MINUTES (10/15/2024 6:49 [...] 0.16(H) <0.09 ng/mL 10/15/2024 6:41 AM EDT [facility] Blood Arterial blood specimen / Unknown Arterial Puncture / Unknown 10/15/2024 3:23 AM EDT 10/15/2024 3:31 AM EDT Narrative [facility] - 10/15/2024 6:41 AM EDT [...] predict 28 day mortality risk. Please consult [email or web address] for more information. Test performed at [facility]. us Aidan Harrison MD LAB BLOOD ORDERABLES Final Res ult [facility] [address] [place] [address] * (ABNORMAL) Comprehensive Urine Drug Screening, Qualitative Assay, >= 27 Drug Classes (53:04 PM EDT) Acetaminophen Negative Negative 10/16/2024 9:48 AM EDT [facility] Alprazolam Negative Negative 10/16/2024 9:48 AM EDT [facility] Amantadine Negative Negative 10/16/2024 9:48 AM EDT [facility] Amitriptyline Negative Negative 10/16/2024 9:48 AM EDT [facility] Amphetamine Negative Negative 10/16/2024 9:48 AM EDT [facility] Atenolol Negative Negative 10/16/2024 9:48 AM EDT [facility] Benzoylecgonine Negative Negative 9:48 AM EDT [facility] Bisoprolol Negative Negative 10/16/2024 9:48 AM EDT [facility] Bupropion Negative Negative 10/16/2024 9:48 AM EDT [facility] Butalbital Negative Negative 10/16/2024 9:48 AM EDT [facility] Carbamazepine Negative Negative 10/16/2024 9:48 AM EDT [facility] Carisoprodol Negative Negative 10/16/2024 9:48 AM EDT [facility] Chlorpheniramine Negative Negative 10/17/19 9:48 AM EDT [facility] Citalopram Negative Negative 10/16/2024 9:48 AM EDT [facility] Clindamycin Negative Negative 10/16/2024 9:48 AM EDT [facility] Clonidine Negative Negative 10/16/2024 9:48 AM EDT [facility] Clopidogrel / Ticlopidine Negative Negative 10/16/2024 9:48 AM EDT [facility] Cocaethylene Negative Negative 10/16/2024 9:48 AM EDT [facility] Cocaine Negative Negative 10/16/2024 9:48 AM EDT [facility] Codeine Negative Negative 10/16/2024 9:48 AM EDT [facility] Cyclobenzaprine Negative Negative 9:48 AM EDT [facility] Desvenlafaxine Negative Negative 10/16/2024 9:48 AM EDT [facility] Dextromethorphan Negative Negative 10/17/19 9:48 AM EDT [facility] Diazepam Negative Negative 10/16/2024 9:48 AM EDT [facility] Diltiazem Negative Negative 10/16/2024 9:48 AM EDT [facility] Diphenhydramine Negative Negative 9:48 AM EDT [facility] Doxepine Negative Negative 10/16/2024 9:48 AM EDT [facility] Doxylamine Negative Negative 10/16/2024 9:48 AM EDT [facility] EDDP-Methadone metabolite Negative Negative 10/16/2024 9:48 AM EDT [facility] Fentanyl Negative Negative 10/16/2024 9:48 AM EDT [facility] Fluconazole Negative Negative 10/16/2024 9:48 AM EDT [facility] Fluoxetine Negative Negative 10/16/2024 9:48 AM EDT [facility] Guaifenesin Negative Negative 10/16/2024 9:48 AM EDT [facility] Haloperidol Negative Negative 10/16/2024 9:48 AM EDT [facility] Heroin/6-JUVENCIO Negative Negative 10/16/2024 9:48 AM EDT [facility] Hydrocodone Negative Negative 10/16/2024 9:48 AM EDT [facility] Hydroxyzine / Cetirizine metabolite Negative Negative 10/16/2024 9:48 AM EDT [facility] Ibuprofen Negative Negative 10/16/2024 9:48 AM EDT [facility] Imipramine Negative Negative 10/16/2024 9:48 AM EDT [facility] Ketamine Negative Negative 10/16/2024 9:48 AM EDT [facility] Labetolol Negative Negative 10/16/2024 9:48 AM EDT [facility] Lamotrigine Negative Negative 10/16/2024 9:48 AM EDT [facility] Levetiracetam Negative Negative 10/16/2024 9:48 AM EDT [facility] Lidocaine Positive(A) Negative 10/16/2024 9:48 AM EDT [facility] MDA Negative Negative 10/16/2024 9:48 AM EDT [facility] MDMA Negative Negative 10/16/2024 9:48 AM EDT [facility] Memantine Negative Negative 10/16/2024 9:48 AM EDT [facility] Meperidine Negative Negative 10/16/2024 9:48 AM EDT [facility] Meprobamate Negative Negative 10/16/2024 9:48 AM EDT [facility] Metaxalone Negative Negative 10/16/2024 9:48 AM EDT [facility] Methamphetamine Negative Negative 9:48 AM EDT [facility] Methocarbamol Negative Negative 10/16/2024 9:48 AM EDT [facility] Methylecgonine Negative Negative 10/16/2024 9:48 AM EDT [facility] Metoclopramide Negative Negative 10/16/2024 9:48 AM EDT [facility] Metoprolol Negative Negative 10/16/2024 9:48 AM EDT [facility] Metronidazole Negative Negative 10/16/2024 9:48 AM EDT [facility] Midazolam Negative Negative 10/16/2024 9:48 AM EDT [facility] Midazolam Metabolite Negative Negative 10/16/2024 9:48 AM EDT [facility] Mirtazapine Negative Negative 10/16/2024 9:48 AM EDT [facility] Misc Test Result Positive(A) Negative 025 9:48 AM EDT [facility] Comment: Escitalopram Citalopram Trazodone Naproxen Negative Negative 10/16/2024 9:48 AM EDT [facility] Nefazodone Negative Negative 10/16/2024 9:48 AM EDT [facility] Norfentanyl Negative Negative 10/16/2024 9:48 AM EDT [facility] Nortriptyline Negative Negative 10/16/2024 9:48 AM EDT [facility] Ordanstron Negative Negative 10/16/2024 9:48 AM EDT [facility] Oxcarbazepine Negative Negative 10/16/2024 9:48 AM EDT [facility] Oxycodone Positive(A) Negative 10/16/2024 9:48 AM EDT [facility] Paroxethine Negative Negative 10/16/2024 9:48 AM EDT [facility] Phenobarbital Negative Negative 10/16/2024 9:48 AM EDT [facility] Phentermine Negative Negative 10/16/2024 9:48 AM EDT [facility] Phenytoin Negative Negative 10/16/2024 9:48 AM EDT [facility] Primidone Negative Negative 10/16/2024 9:48 AM EDT [facility] Promethazine Negative Negative 10/16/2024 9:48 AM EDT [facility] Propofol Negative Negative 10/16/2024 9:48 AM EDT [facility] Propranolol Negative Negative 10/16/2024 9:48 AM EDT [facility] Quetiapine Negative Negative 10/16/2024 9:48 AM EDT [facility] Quinine Negative Negative 10/16/2024 9:48 AM EDT [facility] Rantidine Negative Negative 10/16/2024 9:48 AM EDT [facility] Sertraline Negative Negative 10/16/2024 9:48 AM EDT [facility] Spironolactone Negative Negative 10/16/2024 9:48 AM EDT [facility] Tizanidine Negative Negative 10/16/2024 9:48 AM EDT [facility] Topiramate Negative Negative 10/16/2024 9:48 AM EDT [facility] Tramadol Negative Negative 10/16/2024 9:48 AM EDT [facility] Trazadone/ Trazadone metabolite Negative Negative 10/16/2024 9:48 AM EDT [facility] Trimethoprim Negative Negative 10/16/2024 9:48 AM EDT [facility] Valproic Acid Negative Negative 10/16/2024 9:48 AM EDT [facility] Venlafaxine Negative Negative 10/16/2024 9:48 AM EDT [facility] Verapamil Negative Negative 10/16/2024 9:48 AM EDT [facility] Zolpidem Negative Negative 10/16/2024 9:48 AM EDT [facility] Xylazine Negative Negative 10/16/2024 9:48 AM EDT [facility] Urine Urine specimen obtained by clean catch procedure / Unknown Non-blood Collection / Unknown 10/14/2024 3:04 PM EDT 10/14/2024 3:16 PM EDT us Aidan Harrison MD LAB URINE ORDERABLES Final Res ult [facility] [address] [place] [address] * Vitamin B1, Whole Blood (10/14/2024 2:35 PM EDT) [facility] VITAMIN B1, WHOLE BLOOD 128 70 - 180 nmol/L 10/17/2024 1:55 PM EDT [facility]) Blood Arterial blood specimen / Unknown Arterial Line / Unknown 10/14/2024 2:35 PM EDT 10/14/2024 2:50 PM EDT Narrative [facility] [[email or web address] ([place]ILL[place]ELIA) - 10/17/2024 1:55 PM EDT INTERPRETIVE INFORMATION: Vitamin B1, Whole Blood This assay measures the concentration of thiamine diphosphate (TDP), the primary active form of vitamin B1. Approximately 90 percent of vitamin B1 present in whole blood is TDP. Thiamine and thiamine monophosphate, which comprise the remaining 10 percent, are not measured. This test was developed and its performance characteristics determined by [facility]. It has not been cleared or approved by the [place] Food and Drug Administration. This test was performed in a CLIA certified laboratory and is intended for clinical purposes. Performed By: [facility] [address] [place] [address] Fast Food Attendant: Jasper Newsome MD, PhD CLIA Number: [id number] us Aidan Harrison MD LAB BLOOD ORDERABLES Final Res ult [facility] [[email or web address]] RE2 ([facility]) [address] [place] [address] * (ABNORMAL) Blood gas panel with oximetry, mixed venous (10/14/2024 2:31 PM EDT) pH, Mixed Venous 7.27(L) 7.32 - 7.43 LAB HEMATOLOGY METHOD 10/14/2024 2:45 PM EDT [facility] pCO2, Mixed Venous 41 37 - 52 mmHg LAB HEMATOLOGY METHOD 10/14/2024 2:45 PM EDT [facility] pO2, Mixed Venous 34 25 - 40 mmHg LAB HEMATOLOGY METHOD 10/14/2024 2:45 PM EDT [facility] SO2, Measured, Mixed Venous 57(L) 65 - 80 % LAB HEMATOLOGY METHOD 10/14/2024 2:45 PM EDT [facility] Bicarbonate, Calculated, Mixed Venous 19(L) 22 - 26 mmol/L LAB HEMATOLOGY METHOD 10/14/2024 2:45 PM EDT [facility] Base Excess, Mixed Venous -7.6(L) -2.0 - 3.0 mmol/L LAB HEMATOLOGY METHOD 10/14/2024 2:45 PM EDT [facility] Hematocrit, Whole Blood 24.7(L) 34.0 - 45.0 % LAB HEMATOLOGY METHOD 10/14/2024 2:45 PM EDT [facility] Sodium, Whole Blood 144 136 - 145 mmol/L LAB HEMATOLOGY METHOD 10/14/2024 2:45 PM EDT [facility] Potassium, Whole Blood 3.6 3.6 - 4.9 mmol/L LAB HEMATOLOGY METHOD 10/14/2024 2:45 PM EDT [facility] Chloride, Whole Blood 113(H) 97 - 107 mmol/L LAB HEMATOLOGY METHOD 10/14/2024 2:45 PM EDT [facility] Ionized Calcium, Whole Blood 4.6 4.6 - 5.1 mg/dL LAB HEMATOLOGY METHOD 10/14/2024 2:45 PM EDT [facility] Glucose, Whole Blood 110(H) 74 - 99 mg/dL LAB HEMATOLOGY METHOD 10/14/2024 2:45 PM EDT [facility] Oxyhemoglobin, Mixed Venous, Whole Blood 56.2 40.0 - 70.0 % LAB HEMATOLOGY METHOD 10/14/2024 2:45 PM EDT [facility] Hemoglobin Reduced, Mixed Venous, Whole Blood 41.8 % LAB HEMATOLOGY METHOD 10/14/2024 2:45 PM EDT [facility] Total Hemoglobin, Mixed Venous, Whole Blood 8.1(L) 11.2 - 15.7 g/dL LAB HEMATOLOGY METHOD 10/14/2024 2:45 PM EDT [facility] Blood Mixed venous blood specimen / Unknown Venipuncture / Unknown 10/14/2024 2:31 PM EDT 10/14/2024 2:43 PM EDT us Aidan Harrison MD LAB BLOOD ORDERABLES Final Res ult [facility] [address] [place] [address] * Treponema Pallidum (Syphilis) Antibodies with Reflex to RPR and RPR Titer (Those with NO known Syphilis) (10/14/2024 9:44 AM EDT) Syphilis Antibody (IgG+IgM) Nonreactive Nonreactive 10/14/2024 11:42 AM EDT [facility] Comment:Nonreactive. No sero logic evidence of syphilis. No follow-up necessary unless clinically indicated (e.g., early syphilis). Blood Venous blood specimen / Unknown Venipuncture / Unknown 10/14/2024 9:44 AM EDT 10/14/2024 10:25 AM EDT Result Nicole Harrison MD LAB BLOOD ORDERABLES Final Res ult Performing Organization Address City/[facility]/ZIP Co de Phone Number [facility] [address] [place] [address] * (ABNORMAL) T3 (10/14/2024 9:44 AM EDT) T3, Serum 47(L) 87 - 187 ng/dL 10/14/2024 11:57 PM EDT [facility] Blood Venous blood specimen / Unknown Venipuncture / Unknown 10/14/2024 9:44 AM EDT 10/14/2024 10:25 AM EDT Result Nicole Harrison MD LAB BLOOD ORDERABLES Final Res ult Performing Organization Address [facility] Co de Phone Number [facility] [address] [place] [address] * ID CRITICAL CARE, E/M 30-74 MINUTES (10/14/2024 8:59 [...] Srikanth Colorado MD on 10/14/2024 9:38 AM us Aidan Harrison MD IMG XR PROCEDURES Final Result * (ABNORMAL) Blood gas panel, arterial (10/14/2024 7:52 AM EDT) pH, Arterial 7.32 7.31 - 7.42 LAB HEMATOLOGY METHOD 10/14/2024 7:58 AM EDT [facility] pCO2, Arterial 35 35 - 48 mmHg LAB HEMATOLOGY METHOD 10/14/2024 7:58 AM EDT [facility] pO2, Arterial 75(L) >80 mmHg LAB HEMATOLOGY METHOD 10/14/2024 7:58 AM EDT [facility] SO2, Measured, Arterial 96 94 - 98 % LAB HEMATOLOGY METHOD 10/14/2024 7:58 AM EDT [facility] Base Excess, Arterial -7.8(L) -2.0 - 3.0 mmol/L LAB HEMATOLOGY METHOD 10/14/2024 7:58 AM EDT [facility] Bicarbonate, Calculated, Arterial 18(L) 22 - 26 mmol/L LAB HEMATOLOGY METHOD 10/14/2024 7:58 AM EDT [facility] Hematocrit, Whole Blood 24.5(L) 34.0 - 45.0 % LAB HEMATOLOGY METHOD 10/14/2024 7:58 AM EDT [facility] Sodium, Whole Blood 142 136 - 145 mmol/L LAB HEMATOLOGY METHOD 10/14/2024 7:58 AM EDT [facility] Potassium, Whole Blood 3.9 3.6 - 4.9 mmol/L LAB HEMATOLOGY METHOD 10/14/2024 7:58 AM EDT [facility] Chloride, Whole Blood 114(H) 97 - 107 mmol/L LAB HEMATOLOGY METHOD 10/14/2024 7:58 AM EDT [facility] Glucose, Whole Blood 100(H) 74 - 99 mg/dL LAB HEMATOLOGY METHOD 10/14/2024 7:58 AM EDT [facility] Ionized Calcium, Whole Blood 4.5(L) 4.6 - 5.1 mg/dL LAB HEMATOLOGY METHOD 10/14/2024 7:58 AM EDT [facility] Lactate, Arterial, Whole Blood 0.7 0.5 - 1.6 mmol/L LAB HEMATOLOGY METHOD 10/14/2024 7:58 AM EDT [facility] Blood Arterial blood specimen / Unknown Arterial Puncture / Unknown 10/14/2024 7:52 AM EDT 10/14/2024 7:55 AM EDT us Aidan Harrison MD LAB BLOOD ORDERABLES Final Res ult Performing Organization Address City/[facility]/[place] [address] * (ABNORMAL) BETA HYDROXYBUTYRIC ACID (10/14/2024 6:25 AM EDT) Beta-Hydroxybu tyric Acid, Plasma 1.36(H) <=0.27 mmol/L 10/14/2024 7:30 AM EDT [facility] Blood Venous blood specimen / Unknown Venipuncture / Unknown 10/14/2024 6:25 AM EDT 10/14/2024 6:33 AM EDT us Aidan Harrison MD LAB BLOOD ORDERABLES Final Res ult Performing Organization Address City/[facility] [place] [place] [address] * TSH (10/14/2024 6:25 AM EDT) Thyroid Stimulating Hormone, Plasma 2.89 0.40 - 4.20 uIU/mL 10/14/2024 2:24 PM EDT [facility] Blood Venous blood specimen / Unknown Venipuncture / Unknown 10/14/2024 6:25 AM EDT 10/14/2024 6:33 AM EDT Aidan Harrison MD LAB BLOOD ORDERABLES Final Res ult Performing Organization Address City/[facility]/[place] [address] * T4, free (10/14/2024 6:25 AM EDT) Free T4, Plasma 1.6 0.8 - 1.7 ng/dL 10/14/2024 2:24 PM EDT [facility] Blood Venous blood specimen / Unknown Venipuncture / Unknown 10/14/2024 6:25 AM EDT 10/14/2024 6:33 AM EDT us Aidan Harrison MD LAB BLOOD ORDERABLES Final Res ult Performing Organization Address City/[facility]/ZIP Co de Phone Number [facility] [address] [place] [address] * Ionized calcium, serum (10/14/2024 12:22 AM EDT) Ionized Calcium, Serum 4.8 4.6 - 5.3 mg/dL LAB HEMATOLOGY METHOD 10/14/2024 12:56 AM EDT [facility] Blood Venous blood specimen / Unknown Venipuncture / Unknown 10/14/2024 12:22 AM EDT 10/14/2024 12:34 AM EDT Kasey Win MD LAB BLOOD ORDERABLES Final Res ult Performing Organization Address [facility]/ZIP Co de Phone Number [facility] [address] [place] [address] * XR Hand Right 3+ Views (10/13/2024 [...] 38(H) <14 ng/L 10/13/2024 10:18 AM EDT [facility] Troponin Delta 2 <10 ng/L 10/13/2024 10:18 AM EDT [facility] Troponin Delta Interpretation Not Significant 10/13/2024 10:18 AM EDT [facility] Comment:Not Significant. No acute change in troponin observed between the baseline and 2 hour samples. Blood Arterial blood specimen / Unknown Arterial Line / Unknown 10/13/2024 9:40 AM EDT 10/13/2024 9:50 AM EDT us Cat Jamison MD LAB BLOOD ORDERABLES Final Result Performing Organization Address City/State/[facility] Co de Phone Number [facility] [address] [place] [address] * ID INSERT NON-TUNNEL CV CATH, HC INSERT NON-TUNNEL [...] were discussed: yes Alternatives discussed: No treatment [place] protocol: Procedure explained and questions answered to [...] IN CLINIC/BEDSIDE ORDERABLES F inal Result * ID INSERT CATH,ART,PERCUT,SHORTTERM, HC INSERT CATH,ART,PERCUT,SHORTTERM (10/13/2024 9:09 AM EDT) Narrative Aidan Harrison MD - 10/13/2024 9:09 AM EDT Aidan Harrison MD 10/13/2024 3:36 PM Arterial line Performed by: Erickson Gr DO Authorized by: Aidan Harrison MD Consent: Consent obtained: Emergent situation Consent given by: Patient Risks, benefits, and alternatives were discussed: yes Risks discussed: Bleeding, infection, ischemia, repeat procedure and pain [place] protocol: Procedure explained and questions answered to [...] guard applied CMS: Normal Procedure completion: Tolerated Aidan Harrison MD IV THERAPY ORDERABLES Final [...] is no recent study available for direct [id number] comparison. Left Ventricle The left ventricle is [...] is no recent study available for direct [id number] comparison. us Cat Jamison MD CV ECHO PROCEDURES Final R esult * Lactate, venous (10/13/2024 6:35 AM EDT) Lactate, Venous, Whole Blood 0.8 0.5 - 2.2 mmol/L LAB HEMATOLOGY METHOD 10/13/2024 6:40 AM EDT [facility] Blood Venous blood specimen / Unknown Venipuncture / Unknown 10/13/2024 6:35 AM EDT 10/13/2024 6:39 AM EDT us Kasey Win MD LAB BLOOD ORDERABLES Final Res ult Performing Organization Address City/[facility]/ZIP Co de Phone Number [facility] [address] [place] [address] * Blood Culture (Aerobic/Anaerobet Set) (10/13/2024 6:35 AM EDT) Culture No growth at day 5 LANA 10/18/2024 8:02 AM EDT [facility] Blood Venous blood specimen / Unknown Venipuncture / Unknown 10/13/2024 6:35 AM EDT 10/13/2024 7:18 AM EDT Kasey Win MD LAB MICROBIOLOGY - GENERAL ORD ERABLES Final Result Performing Organization Address [facility] [place] [place] [address] * Urine Rao Panel (10/13/2024 6:08 AM EDT) Extra Reflex urine culture not indicated 10/13/2024 8:02 AM EDT [facility] Urine Urine specimen obtained by clean catch procedure / Unknown Non-blood Collection / Unknown 10/13/2024 6:08 AM EDT 10/13/2024 6:33 AM EDT us Kasey Win MD LAB URINE ORDERABLES Final Res ult Performing Organization Address [facility] Co de Phone Number [facility] [address] [place] [address] * Urinalysis Microscopic Examination (10/13/2024 6:08 AM EDT) Urine Urine specimen obtained by clean catch procedure / Unknown Non-blood Collection / Unknown 10/13/2024 6:08 AM EDT 10/13/2024 6:21 AM EDT us Kasey Win MD LAB URINE ORDERABLES Final Res ult Performing Organization Address City/[facility]/ZIP Co de Phone Number [facility] [address] [place] [address] * (ABNORMAL) Urinalysis with reflex microscopic (Culture NOT Included) (10/13/2024 6:08 AM ED) Only the most recent of2 resultswithin the time period is included. Color, Urine Yellow LAB URINALYSIS - AUTOMATED METHOD 10/13/2024 7:07 AM [facility] Clarity, Urine Clear LAB URINALYSIS - AUTOMATED METHOD 10/13/2024 7:07 AM [facility] Spec [place], Urine 1.016 1.005 - 1.030 LAB URINALYSIS - AUTOMATED METHOD 10/13/2024 7:07 AM [facility] pH, Urine 6.5 5.0 - 8.0 LAB URINALYSIS - AUTOMATED METHOD 10/13/2024 7:07 AM [facility] LAB Protein, Urine Trace(A) Negative mg/dL LAB URINALYSIS - AUTOMATED METHOD 10/13/2024 7:07 AM [facility] LAB Glucose, Urine Negative Negative mg/dL LAB URINALYSIS - AUTOMATED METHOD 10/13/2024 7:07 AM [facility] LAB Ketones, Urine Negative Negative mg/dL LAB URINALYSIS - AUTOMATED METHOD 10/13/2024 7:07 AM [facility] LAB Blood, Urine Negative Negative LAB URINALYSIS - AUTOMATED METHOD 10/13/2024 7:07 AM [facility] Bilirubin, Urine Negative Negative LAB URINALYSIS - AUTOMATED METHOD 10/13/2024 7:07 AM [facility] Urobilinogen, Urine 0.2 0.2 to 1.0 mg/dL LAB URINALYSIS - AUTOMATED METHOD 10/13/2024 7:07 AM [facility] Leukocytes, Urine Small(A) Negative LAB URINALYSIS - AUTOMATED METHOD 10/13/2024 7:07 AM [facility] Nitrite, Urine Negative Negative LAB URINALYSIS - AUTOMATED METHOD 10/13/2024 7:07 AM [facility] RBC, Urine <1 0 to 3 /HPF LAB URINALYSIS - AUTOMATED METHOD 10/13/2024 7:07 AM [facility] WBC, Urine 6 - 10(A) 0 to 5 /HPF LAB URINALYSIS - AUTOMATED METHOD 10/13/2024 7:07 AM EDT [facility] Squamous Epithelial Cells 0 - 2 0 to 5 /HPF LAB URINALYSIS - AUTOMATED METHOD 10/13/2024 7:07 AM EDT [facility] Hyaline Casts 0 - 2 0 to 5 /LPF LAB URINALYSIS - AUTOMATED METHOD 10/13/2024 7:07 AM EDT [facility] Bacteria, Urine Negative Negative LAB URINALYSIS - AUTOMATED METHOD 10/13/2024 7:07 AM EDT [facility] Urine Urine specimen obtained by clean catch procedure / Unknown Non-blood Collection / Unknown 10/13/2024 6:08 AM EDT 10/13/2024 6:21 AM EDT Kasey Win MD LAB URINE ORDERABLES Final Res ult Performing Organization Address [facility]/[place] [address] * Viv auris Surveillance by PCR (10/13/2024 6:05 AM EDT) Viv auris PCR Result Not Detected Not Detected 10/13/2024 12:18 PM EDT [facility] Swab (Axilla and Groin) Non-blood Collection / Unknown 10/13/2024 6:05 AM EDT 10/13/2024 6:31 AM EDT Narrative [facility] - 10/13/2024 12:18 PM EDT This PCR assay was developed and its performance characteristics determined by [facility] as appropriate for clinical purposes. This assay has not been cleared or approved by the FDA, but is performed in a CLIA regulated laboratory that is qualified to perform high-complexity testing. us Kasey Win MD LAB MICROBIOLOGY - GENERAL ORD ERABLES Final Result Performing Organization Address [facility]/[place] [address] * (ABNORMAL) Multi Drug Resistance Test (10/13/2024 6:05 AM EDT) Culture Klebsiella pneumoniae ESBL(AA) LANA 10/17/2024 11:07 AM EDT [facility] Comment: The organism value for this result has been updated. These results have been appended to the previously preliminary verified report. The organism value for this result has been updated. These results have been appended to the previously preliminary verified report. Swab (Nares and Rachel Rectal) Non-blood Collection / Unknown 10/13/2024 6:05 AM EDT 10/13/2024 6:31 AM EDT Narrative [facility] - 10/17/2024 11:07 AM EDT This test was developed and its performance characteristics determined by the [facility]. Although the media is FDA-approved, it is not FDA-approved for all specimen types submitted. The FDA has determined that such clearance or approval is not necessary. This test is used for surveillance purposes. It should not be regarded as investigational or for research. The [facility] is certified under the [...] 4/4 ug/ml: Resistant Klebsiella pneumoniae ESBL Tetracycline LNAA <=2 ug/ml: Susceptible Klebsiella pneumoniae ESBL Tobramycin LANA <=2 ug/ml: Susceptible Klebsiella pneumoniae ESBL Trimethoprim/Sulfamethoxazo le LANA >2/38 ug/ml: Resistant us Kasey Win MD LAB MICROBIOLOGY - GENERAL ORD ERABLES Final Result [facility] [address] [place] [address] * Methicillin Resistant Staphylococcus aureus (MRSA) by PCR (10/13/2024 6:05 AM EDT) Methicillin Resistant Staphylococcus aureus (MRSA) by PCR Not Detected Not Detected 10/13/2024 9:[address] [facility] Swab Both anterior nares / Unknown Non-blood Collection / Unknown 10/13/2024 6:05 AM EDT 10/13/2024 7:18 AM EDT Narrative [facility] - 10/13/2024 9:07 AM EDT [...] MICROBIOLOGY - GENERAL ORD ERABLES Final Result [facility] [address] [place] [address] * (ABNORMAL) Troponin T, High Sensitivity, 0 Hour Plasma, Reflex to 2 Hour (10/13/2024 5:18 AM EDT) [facility] Troponin T, High Sensitivity, 0 Hour 36(H) <14 ng/L 10/13/2024 6:[address] [facility] Blood Venous blood specimen / Unknown Venipuncture / Unknown 10/13/2024 5:18 AM EDT 10/13/2024 5:24 AM EDT us Cat Jamison MD LAB BLOOD ORDERABLES Final Result [facility] [address] [place] [address] * (ABNORMAL) N-Terminal Probnp (10/13/2024 5:18 AM EDT) N-Terminal, PROBNP, Plasma 1,081(H) 0 - 899 pg/mL 10/13/2024 6:21 AM EDT [facility] Blood Venous blood specimen / Unknown Venipuncture / Unknown 10/13/2024 5:18 AM EDT 10/13/2024 5:24 AM EDT us Kasey Win MD LAB BLOOD ORDERABLES Final Res ult [facility] [address] [place] [address] * CT Bony Pelvis (10/13/2024 3:57 AM [...] 6.6(H) <5.7 % 10/13/2024 12:54 PM EDT [facility] Blood Venous blood specimen / Unknown Venipuncture / Unknown 10/13/2024 3:44 AM EDT 10/13/2024 3:46 AM EDT Narrative [facility] - 10/13/2024 12:54 PM EDT HA1C Interpretive Data: Diagnosis of Diabetes: Diabetic > or = 6.5% Pre-diabetic 5.7 to 6.4% Non-diabetic < or = 5.6% Glycemic Targets for Type I and Type II Diabetics: Non- Adults <7.0% Adults <6.0% Children and Adolescents <7.5% Source: [place] [employer]. Standards of medical care in diabetes,2017. Diabetes Care.2017:40 (suppl 1):S1-S135. us Kasey Win MD LAB BLOOD ORDERABLES Final Res ult [facility] [address] [place] [address] * (ABNORMAL) Blood gas, venous (10/13/2024 3:44 AM EDT) pH, Venous 7.29(L) 7.32 - 7.43 LAB HEMATOLOGY METHOD 10/13/2024 3:55 AM EDT [facility] pCO2, Venous 37 37 - 52 mmHg LAB HEMATOLOGY METHOD 10/13/2024 3:55 AM EDT [facility] pO2, Venous 26 25 - 40 mmHg LAB HEMATOLOGY METHOD 10/13/2024 3:55 AM EDT [facility] SO2, Measured, Venous 44(L) 65 - 80 % LAB HEMATOLOGY METHOD 10/13/2024 3:55 AM EDT [facility] Base Excess, Venous -8.5(L) -2.0 - 3.0 mmol/L LAB HEMATOLOGY METHOD 10/13/2024 3:55 AM EDT [facility] Bicarbonate, Calculated, Venous 17(L) 22 - 26 mmol/L LAB HEMATOLOGY METHOD 10/13/2024 3:55 AM EDT [facility] Hematocrit, Whole Blood 29.1(L) 34.0 - 45.0 % LAB HEMATOLOGY METHOD 10/13/2024 3:55 AM EDT [facility] Sodium, Whole Blood 134(L) 136 - 145 mmol/L LAB HEMATOLOGY METHOD 10/13/2024 3:55 AM EDT [facility] Potassium, Whole Blood 4.3 3.6 - 4.9 mmol/L LAB HEMATOLOGY METHOD 10/13/2024 3:55 AM EDT [facility] Chloride, Whole Blood 107 97 - 107 mmol/L LAB HEMATOLOGY METHOD 10/13/2024 3:55 AM EDT [facility] Glucose, Whole Blood 112(H) 74 - 99 mg/dL LAB HEMATOLOGY METHOD 10/13/2024 3:55 AM EDT [facility] Lactate, Venous, Whole Blood 1.2 0.5 - 2.2 mmol/L LAB HEMATOLOGY METHOD 10/13/2024 3:55 AM EDT [facility] Ionized Calcium, Whole Blood 4.8 4.6 - 5.1 mg/dL LAB HEMATOLOGY METHOD 10/13/2024 3:55 AM EDT [facility] Blood Venous blood specimen / Unknown Venipuncture / Unknown 10/13/2024 3:44 AM EDT 10/13/2024 3:53 AM EDT us Derik Renae MD LAB BLOOD ORDERABLES Final Resu lt [facility] [address] [place] [address] * Drug Abuse Screen, Urine (10/12/2024 11:56 PM EDT) Amphetamine Screen Urine Negative Cutoff: 500 ng/mL 10/13/2024 12:45 AM EDT [facility] Benzodiazepines Screen Urine Negative Cutoff: 200 ng/mL 10/13/2024 12:45 AM EDT [facility] Cannabinoid Screen Urine Negative Cutoff: 50 ng/mL 10/13/2024 12:45 AM EDT [facility] Cocaine Screen Urine Negative Cutoff: 300 ng/mL 10/13/2024 12:45 AM EDT [facility] Barbiturate Screen Urine Negative Cutoff: 200 ng/mL 10/13/2024 12:45 AM EDT [facility] Opiate Screen Urine Negative Cutoff: 300 ng/mL 10/13/2024 12:45 AM EDT [facility] Methadone Screen Urine Negative Cutoff: 300 ng/mL 10/13/2024 12:45 AM EDT [facility] Buprenorphine Screen Urine Negative Cutoff: 10 ng/mL 10/13/2024 12:45 AM EDT [facility] Fentanyl Screen Urine Negative Cutoff: 1 ng/mL 10/13/2024 12:45 AM EDT [facility] Oxycodone Screen Urine Negative Cutoff: 100 ng/mL 10/13/2024 12:45 AM EDT [facility] Urine Urine specimen obtained by clean catch procedure / Unknown Non-blood Collection / Unknown 10/12/2024 11:56 PM EDT 10/13/2024 12:13 AM EDT us Cat Jamison MD LAB URINE ORDERABLES Final Result Performing Organization Address [facility]/ZIP Co de Phone Number [facility] [address] [place] [address] * (ABNORMAL) Anti Xa Level Low Molecular Weight (10/12/2024 11:56 PM EDT) Anti Xa Level Low Molecular Weight Heparin >2.00(HH) <2.00 IU/mL 10/13/2024 1:02 AM EDT [facility] Blood Venous blood specimen / Unknown Venipuncture / Unknown 10/12/2024 11:56 PM EDT 10/13/2024 12:01 AM EDT Narrative [facility] - 10/13/2024 1:02 AM EDT Therapeutic Range: LMWH enoxaparin 1mg/kg/dose, 12hrs - peak (3-5 hours after dose): 0.5 - 1.0 IU/mL LMWH enoxaparin 1.5mg/kg/dose, 24hrs - peak (3-5 hours after dose): 1.0 - 2.0 IU/mL LMWH enoxaparin prophylaxis: Not established us Derik Renae MD LAB BLOOD ORDERABLES Final Resu lt [facility] [address] [place] [address] * Red Blood Cell Antibody with Antigen Notification (10/12/2024 11:55 PM EDT) Notification, Gabriela Blood Cell Antibody with Antigen During your recent admission to the [facility], laboratory testing performed in the [...] do not hesitate to call me at [phone]. No defined reference value 10/14/2024 4:24 PM EDT BLOOD BANK Pathologist Signature, Red Blood Cell Antibody with Antigen Reviewed by: Srikanth Watson MD 10/14/2024 4:24 PM EDT [facility] Blood Venous blood specimen / Unknown Venipuncture / Unknown 10/12/2024 11:55 PM EDT 10/13/2024 12:04 AM EDT us Aidan Harrison MD LAB BLOOD BANK TEST ORDERABLES Final Result Performing Organization Address City/[facility]/ZIP Co de Phone Number BLOOD BANK [address] [place] [address] * ED HIV 1/2 Antibody/Antigen Screen w/Reflex to HIV 1/2 Differentiation (10/12/2024 11:55 PM EDT) HIV 1 & 2 Antibody/Antigen Screen Non Reactive Non Reactive 10/13/2024 12:58 AM EDT [facility] Comment:Screening for HIV 1 & 2 antibodies, and P24 antigen is NONREACTIVE. No confirmatory testing is required. Blood Venous blood specimen / Unknown Venipuncture / Unknown 10/12/2024 11:55 PM EDT 10/13/2024 12:12 AM EDT Cat Jamison MD LAB BLOOD ORDERABLES Final Result [facility] [address] [place] [address] * (ABNORMAL) Trauma shock panel blood gas (10/12/2024 11:55 PM EDT) [facility] pH, Venous 7.23(LL) 7.32 - 7.43 LAB HEMATOLOGY METHOD 10/13/2024 12:06 AM EDT [facility] Bicarbonate, Calculated, Venous 17(L) 22 - 26 mmol/L LAB HEMATOLOGY METHOD 10/13/2024 12:06 AM EDT [facility] Base Excess, Venous -10.0(L) -2.0 - 3.0 mmol/L LAB HEMATOLOGY METHOD 10/13/2024 12:06 AM EDT [facility] Lactate, Venous, Whole Blood 1.8 0.5 - 2.2 mmol/L LAB HEMATOLOGY METHOD 10/13/2024 12:06 AM EDT [facility] Blood Venous blood specimen / Unknown Venipuncture / Unknown 10/12/2024 11:55 PM EDT 10/13/2024 12:02 AM EDT us Cat Jamison MD LAB BLOOD ORDERABLES Final Result [facility] [address] [place] [address] * Ethyl Alcohol Plasma (10/12/2024 11:55 PM EDT) [facility] Ethanol Plasma <10 <10 mg/dL 10/13/2024 12:55 AM EDT [facility] Blood Venous blood specimen / Unknown Venipuncture / Unknown 10/12/2024 11:55 PM EDT 10/13/2024 12:12 AM EDT Narrative [facility] - 10/13/2024 12:55 AM EDT Enzymatic Assay: Performed on [employer]gh[employer]. us Cat Jamison MD LAB BLOOD ORDERABLES Final Result [facility] [address] [place] [address] * Hepatitis C Antibody - ED (10/12/2024 11:55 PM EDT) Hepatitis C Antibody Negative Negative 10/13/2024 12:58 AM EDT [facility] Blood Venous blood specimen / Unknown Venipuncture / Unknown 10/12/2024 11:55 PM EDT 10/13/2024 12:12 AM EDT Cat Jamison MD LAB BLOOD ORDERABLES Final Result Performing Organization Address [facility]/ZIP Co de Phone Number [facility] [address] [place] [address] * (ABNORMAL) TEG Global Hemostasis with Lysis (10/12/2024 11:55 PM EDT) R, Lysis 9.3(H) 4.6 - 9.1 min 10/13/2024 1:[address] [facility] MA, Rapid, Lysis 69.9 52.0 - 70.0 mm 10/13/2024 1:[address] [facility] MA, Fibrinogen, Lysis 32.5(H) 15.0 - 32.0 mm 10/13/2024 1:[address] [facility] LY30 0.8 0.0 - 2.6 % 10/13/2024 1:[address] [facility] Blood Venous blood specimen / Unknown Venipuncture / Unknown 10/12/2024 11:55 PM EDT 10/13/2024 12:17 AM EDT us Cat Jamison MD LAB BLOOD ORDERABLES Final Result Performing Organization Address City/[facility]/[place] [address] * (ABNORMAL) APTT (PTT) (10/12/2024 11:55 PM EDT) Pathologist [facility] aPTT 36(H) 25 - 35 sec 10/13/2024 12:15 AM EDT [facility] Blood Venous blood specimen / Unknown Venipuncture / Unknown 10/12/2024 11:55 PM EDT 10/13/2024 12:01 AM EDT us Cat Jamison MD LAB BLOOD ORDERABLES Final Result [facility] [address] [place] [address] * (ABNORMAL) PT-INR (10/12/2024 11:55 PM EDT) Prothrombin Time 20.2(H) 12.0 - 14.3 sec 10/13/2024 12:14 AM EDT [facility] INR 1.7(H) 0.9 - 1.1 10/13/2024 12:14 AM EDT [facility] Blood Venous blood specimen / Unknown Venipuncture / Unknown 10/12/2024 11:55 PM EDT 10/13/2024 12:01 AM EDT Narrative [facility] - 10/13/2024 12:14 AM EDT OPTIMAL INR RANGES FOR PATIENT ON ORAL ANTICOAGULANT THERAPY Prevention of venous thromboembolism INR 2.0 to 3.0 In patients with heart disease: Atrial fibrillation INR 2.0 to 3.0 Valvular heart disease INR 2.0 to 3.0 Tissue heart valves INR 2.0 to 3.0 Mechanical prosthetic valves INR 2.5 to 3.5 Prevention of recurrent MN INR 2.5 to 3.5 us Cat Jamison MD LAB BLOOD ORDERABLES Final Result Performing Organization Address [facility]/ZIP Co de Phone Number [facility] [address] [place] [address] * Test Qualitative Plasma (10/12/2024 11:55 PM EDT) Test Negative Negative 10/13/2024 1:02 AM EDT [facility] Blood Venous blood specimen / Unknown Venipuncture / Unknown 10/12/2024 11:55 PM EDT 10/13/2024 12:12 AM EDT Narrative [facility] - 10/13/2024 1:02 AM EDT Reference Range: Males and non- females: Negative. us Cat Jamison MD LAB BLOOD ORDERABLES Final Result [facility] [address] [place] [address] * CT OUTSIDE IMAGES (10/12/2024 8:15 PM EDT) Only the most recent of3 resultswithin the time period is included. Anatomical Region Laterality Modality Computed Tomogra phy 10/12/2024 8:15 PM EDT us Tito Madrid MD IMG CT PROCEDURES Final Result from Last 3 Months Additional Health Concerns Infection Onset Date Last Indicated ESBL 10/13/2024 10/13/2024 Insurance [employer] Advance Directives Documents on File Type Date Recorded Patient Clay Structure Builder And Servicer Expl anation Advance Directives and Livin g Will 10/14/2024 4:42 PM Advance Directives and Livin g Will 10/13/2024 6:35 AM * Full Code (Latest Code Status on File) Date Activated Date Inactivated Comments 10/13/2024 5:26 AM 10/30/2024 7:10 PM Question Answer Comments I have reviewed the capacity from the link above and, if needed, have updated to appropriate status: Yes Care Teams Physical Therapy Assistant Instructor Relationship Specialty Start Date End Date Cosme Davis MD [address] [place] [id number] PCP - General 06/24/20
--- OUTSIDE RECORDS SUMMARY | 2025-01-01 09:05 | XMS_ITS | Encounter Summary ---
Author Organization [employer] ([place], [place], [place], [place], [place]) Address [address] [place] [address] Care Team Providers Care Dance Coach Name Role Phone Unavailable Primary Care Provider Unavailabl e Encounter Details Date Type Department Care Team (Late st Contact Info) Description 03/25/2018 Transcribed Document [facility] [place] [address] [place] [address] ProviderZion MD [address] [place] [address] Social History Tobacco Use Types [...] - Historical ProviderMD - 03/25/2018 5:00 PM HEADING REPAIRER Chart Check - Review Order Profile Entered [...]
--- OUTSIDE RECORDS SUMMARY | 2025-01-01 09:05 | XMS_ITS | Encounter Summary ---
Author Organization [employer] ([place], [place], [place], [place], [place]) Address [address] [place] [address] Care Team Providers Care Family Service Assistant Name Role Phone Unavailable Primary Care Provider Unavailabl e Encounter Details Date Type Department Care Team (Late st Contact Info) Description 05/07/2018 Transcribed Document [facility] [place] Medicine [address] [place] [address] ProviderZion MD [address] [place] [address] Social History Tobacco Use Types [...] you are awake and alert. ??? Take kyjq-qha-onlebyp and prescription medicines only as told by [...] 11/18/2013 Document Revised: 07/02/2016 Document Reviewed: 05/19/2016 [employer] Interactive Patient Education ? 2017 [employer] Radiology Transesophageal Echocardiogram Transesophageal echocardiography (BROCK) [...] 11/25/2009 Document Revised: 07/05/2016 Document Reviewed: 07/30/2013 [employer] Interactive Patient Education ? 2017 [employer] documented in this encounter Plan of Treatment Not on file documented as of this encounter Visit Diagnoses Not on filedocumented in this encounter
--- OUTSIDE RECORDS SUMMARY | 2025-01-01 09:05 | XMS_ITS | Encounter Summary ---
Author Organization [employer] ([place], [place], [place], [place], [place]) Address [address] [place] [address] Care Team Providers Care Grounds Foreman Name Role Phone Unavailable Primary Care Provider Unavailabl e Encounter Details Date Type Department Care Team (Late st Contact Info) Description 03/29/2018 Transcribed Document [facility] [place] Family Medicine [address] [place] [address] ProviderZion MD [address] [place] [address] Social History Tobacco Use Types [...] - Zion ProviderMD - 03/29/2018 3:54 PM BOOKKEEPING MACHINE OPERATOR [address] [place] [address] Patient Copy Patient Information: Name: ETHAN CRONIN Current Date: 03/29/2018 15:54:26 : 1960 Patient Address: [address] [place] [id number] Patient Attending Physician: MELY WHITNEY MD Primary Care Provider: CRUZ, NOT LISTED Primary Care Provider Phone: Discharge Diagnosis: Endocarditis Weight on Admission: 165 lb, 14 oz Comment: Follow-up Instructions: With: Address: When: JOHN TSAI [address] [facility] [place] [address] Business (1) Within 1 month With: Address: When: SUJIT DUNBAR [address] [facility], [address] [place] [address] Business (1) Within 2 weeks With: Address: When: Follow up with primary care provider Within 1 to 2 weeks With: Address: When: AJAY KRYS 10:00 AM Comments: [facility]OCK Check in at [facility] @ 10:00 NPO after midnight Discharge Instructions: Immunizations Documented During Stay: No Immunizations Found Discharge Summary Sent to: [facility] [phone] Special Instructions: Report: [facility] [phone] Heart Failure Discharge Instructions (if any): Stroke [...] these instructions at home: Medicines ??? Take iuge-qvn-yalkcof and prescription medicines only as told by [...] 01/28/2006 Document Revised: 11/09/2016 Document Reviewed: 11/09/2016 [employer] Interactive Patient Education ? 2017 [employer] CIGARETTE SMOKING: The facts are clear, cigarette smoking will shorten your life. Smoking can cause many illnesses along the way. As a healthcare provider, we recommend that you stop smoking. Assistance with quitting is available by contacting 5-138-VPAX-NOW. This is a free resource providing counseling, [...] Be sure to sign up for the [employer] patient portal, which gives you 24/ access to your medical information ??? including these discharge instructions ??? using your computer, smartphone, or tablet. Just go to [employer] to get started. Questions? Call . [facility] would like to thank you for allowing us to assist you with your healthcare needs. GERTRUDE Mcconnell VERONICA G, (or accounting representative) have received the above patient education materials/instructions and have verbalized understanding: Patient Signature _ Date/Time Patient Casino Floor Walker Signature (if needed) Date/Time Clinician/Hospital Casino Floor Walker Signature (if needed) Date/Time documented in this encounter Plan of Treatment Not on file documented as of this encounter Visit Diagnoses Not on filedocumented in this encounter
--- OUTSIDE RECORDS SUMMARY | 2025-01-01 09:05 | XMS_ITS | Encounter Summary ---
Author Organization [employer] ([place], [place], [place], [place], [place]) Address [address] [place] [address] Care Team Providers Care Senior Technical Support Analyst Name Role Phone Unavailable Primary Care Provider Unavailabl e Encounter Details Date Type Department Care Team (Late st Contact Info) Description 05/07/2018 Transcribed Document [facility] Family Medicine [facility] [place] [address] ProviderZion MD [address] [place] [id number] Social History Tobacco Use Types Packs/Day [...] Zion ProviderMD - 05/07/2018 4:09 PM CDT [address] [place] [id number] Patient Copy Patient Information: Name: ETHAN CRONIN Current Date: 05/07/2018 16:09:51 : 1960 Patient Address: [address] [place] [id number] Patient Attending Physician: AJAY MARCANO MD-GUICHO Primary Care Provider: SUJIT DAWKINS (REF)IFTIKHAR Primary Care Provider Discharge Diagnosis: Weight on Admission: 163 lb, 0 oz Comment: Follow-up Instructions: With: Address: When: JOHN TSAI [address] [facility] [place] [address] [employer]1) 11:45 AM With: Address: Jenn: AJAY MARCANO [address] [facility], [address] [place] [address] [employer] (1) Within 2 to 3 days Comments: [...] you are awake and alert. ??? Take tjhb-nan-rbyphvj and prescription medicines only as told by [...] 11/18/2013 Document Revised: 07/02/2016 Document Reviewed: 05/19/2016 ElseTimeCast Interactive Patient Education ? 2017 [employer] Transesophageal Echocardiogram Transesophageal echocardiography (BROCK) is [...] 11/25/2009 Document Revised: 07/05/2016 Document Reviewed: 07/30/2013 BringMeThat Interactive Patient Education ? 2017 [employer] CIGARETTE SMOKING: The facts are clear, cigarette smoking will shorten your life. Smoking can cause many illnesses along the way. As a healthcare provider, we recommend that you stop smoking. Assistance with quitting is available by contacting 9-565-JJRX-NOW. This is a free resource providing counseling, [...] Be sure to sign up for the MonoSphere patient portal, which gives you 03/09 access to your medical information ??? including these discharge instructions ??? using your computer, smartphone, or tablet. Just go to Vital Access to get started. Questions? Call . [facility] would like to thank you for allowing us to assist you with your healthcare needs. GERTRUDE Mcconnell VERONICA GAY, (or senior human resources representative) have received the above patient education materials/instructions and have verbalized understanding: Patient Signature _ Date/Time Patient Field Radio Technician Signature (if needed) Date/Time Clinician/Hospital Field Radio Technician Signature (if needed) Date/Time documented in this encounter Plan of Treatment Not on file documented as of this encounter Visit Diagnoses Not on filedocumented in this encounter
--- OUTSIDE RECORDS SUMMARY | 2025-01-01 09:05 | XMS_ITS | Encounter Summary ---
Author Organization [employer] ([place], [place], [place], [place], [place]) Address [address] [place] [address] Care Team Providers Care Tire Installer Name Role Phone Unavailable Primary Care Provider Unavailabl e Encounter Details Date Type Department Care Team (Late st Contact Info) Description 03/23/2018 Transcribed Document [facility] [place] Family Medicine [address] [place] [address] ProviderZion MD [address] [place], [place] [phone] Social History Tobacco Use Types Packs/Day Years Used Date Smoking Tobacco: Never Assessed Comments Unknown Sex and Gender Information Value Date Recorded Sex Assigned at Not on file Legal Sex Female 4:39 PM CDT Gender Identity Not on file Sexual Orientation Not on file documented as of this encounter Miscellaneous Notes * Cerner Conversion Note - Historical ProviderMD - 03/23/2018 9:00 AM CUTTING INSPECTOR Consult Phone Call Documentation Entered On: 03/23/2018 [...]
--- OUTSIDE RECORDS SUMMARY | 2025-01-01 09:05 | XMS_ITS | Encounter Summary ---
Author Organization [employer] ([place], [place], [place], [place], [place]) Address [address] [place] [address] Care Team Providers Care Medical I D Sales Name Role Phone Unavailable Primary Care Provider Unavailabl e Encounter Details Date Type Department Care Team (Late st Contact Info) Description 03/23/2018 Transcribed Document [facility] [place] Medicine [address] [place] [address] ProviderZion MD [address] [place] [phone] Social History Tobacco Use Types Packs/Day Years Used Date Smoking Tobacco: Never Assessed Comments Unknown Sex and Gender Information Value Date Recorded Sex Assigned at Not on file Legal Sex Female 4:39 PM CDT Gender Identity Not on file Sexual Orientation Not on file documented as of this encounter Miscellaneous Notes * Cerner Conversion Note - Historical ProviderMD - 03/23/2018 5:54 PM NATIONAL BUSINESS DIRECTOR Care Management Assessment/Plan Entered On: 03/26/2018 17:47 [...] yr old W F transferred here from [facility] w/ bradycardia, positive blood cultures/strep B [...] Pt [facility], claims she is indep w/ all activities. D/C plan pending outcome of possible pacer removal, may well be good [facility] candidate. She denies any needs now, CM will cont to follow. DEEPA GALDAMEZ, Sales Merchandising Specialist - 03/26/2018 17:36 EST documented in this encounter Plan of Treatment Not on file documented as of this encounter Visit Diagnoses Not on filedocumented in this encounter
--- OUTSIDE RECORDS SUMMARY | 2025-01-01 09:05 | XMS_ITS | Encounter Summary ---
Author Organization [employer] ([place], [place], [place], [place], [place]) Address [address] [place] [address] Care Team Providers Care Sweeping Compound Blender Name Role Phone Unavailable Primary Care Provider Unavailabl e Encounter Details Date Type Department Care Team (Late st Contact Info) Description 03/29/2018 Transcribed Document [facility] [place] Family Medicine [facility] [place] [address] ProviderZion MD [address] [place] [phone] Social History Tobacco Use Types Packs/Day Years Used Date Smoking Tobacco: Never Assessed Comments Unknown Sex and Gender Information Value Date Recorded Sex Assigned at Not on file Legal Sex Female 4:39 PM CDT Gender Identity Not on file Sexual Orientation Not on file documented as of this encounter Miscellaneous Notes * Cerner Conversion Note - Zion Alonso MD - 03/29/2018 8:09 AM MANAGER OF DEVELOPMENT Patient: ETHAN CRONIN Age: 57 years Sex: Female : 1960 Associated Diagnoses: None Author: CARROLL HIGH MD-INF Basic Information CC: Sepsis bacteremia 03/19/18 4/4 bottles for Group b strep ([facility]), mitral prosthetic valve endocarditis History of Present Illness 57-year-old white female with history of bladder cancer, atrial flutter, pacemaker placement 2016, hypertension, DM2, COPD, pancreatitis, who recently had blood cultures obtained at [facility] on 03/19/18 for fever which were positive in 4 out of 4 bottles for group B Streptococcus. Patient was to start IV antibiotics but was found to have bradycardia and was admitted to [facility] on 03/23/17. I was consulted on 03/25/17. The patient had been started on vancomycin and Rocephin. Urine culture obtained at [facility] was positive for multiple bacteria consistent [...] cefTRIAXone (Rocephin) - 2 Gram, IV Piggyback, [id number], infuse over 30 Minute(s), Routine Anticoagulant heparin [...] Normal strength, No tenderness. Integumentary: Warm, Dry, [place], No pallor, No rash, Left chest [...] culture bottles positive at [facility] (spoke to Maurice Spencer, at [facility]). BROCK consistent with mitral valve [...] Dr. Perez's service, cardiology, and Dr. Alan.. assistant merchandise manager: Please arrange for outpatient IV antibiotics with Rocephin 2 g IV every 12 hours until 05/04/18. Follow CBC, CMP, CRP weekly while on IV antibiotics. Fax orders to [phone], and call [phone] with final arrangements. Arrange for follow-up with me in 2 weeks post discharge. documented in this encounter Plan of Treatment Not on file documented as of this encounter Visit Diagnoses Not on filedocumented in this encounter
--- OUTSIDE RECORDS SUMMARY | 2025-01-01 09:05 | XMS_ITS | Encounter Summary ---
Author Organization [employer] ([place], [place], [place], [place], [place]) Address [address] [place] [address] Care Team Providers Care Wire Frame Maker Name Role Phone Unavailable Primary Care Provider Unavailabl e Encounter Details Date Type Department Care Team (Late st Contact Info) Description 03/29/2018 Transcribed Document [facility] Radiology [address] [place] [address] [place] [address] [place] [address] Social History Tobacco Use Types Packs/Day [...] Rocephin: 2 Gram, 100 mL/Hr, IV Piggyback, [id number] Tylenol: 650 mg, Oral, Q4H, PRN: Other [...] 0 Refill(s) Rocephin: 2 Gram, IV Piggyback, [id number], 0 Refill(s) carvedilol 3.125 mg oral tablet: [...] At Bedtime Rocephin 2 Gram, IV Piggyback, [id number] , Medications (26) Active Scheduled: (14) aspirin EC 81 mg tab 81 mg 1 Tab, Oral, Daily carvedilol 3.125 mg tab 3.125 mg 1 Tab, Oral, Daily cefTRIAXone 2 Gram, IV Piggyback, [id number] citalopram 20 mg tab 20 mg 1 [...] - Coronary artery disease / SNOMED CT 4928790391 / Confirmed Cardiomyopathy / SNOMED CT 172422474 / Confirmed HLD - Hyperlipidemia / SNOMED CT 563931716 / Confirmed HTN - Hypertension / SNOMED CT 3759419582 / Confirmed, Active Problems (14) Anxiety Atrial [...] to rehab when bed available. Discussed with lining caser. documented in this encounter Plan of Treatment Not on file documented as of this encounter Visit Diagnoses Not on filedocumented in this encounter
--- OUTSIDE RECORDS SUMMARY | 2025-01-01 09:05 | XMS_ITS | Encounter Summary ---
Author Organization [employer] ([place], [place], [place], [place], [place]) Address [address] [place] [address] Care Team Providers Care Natural Resource Technician Name Role Phone Unavailable Primary Care Provider Unavailabl e Encounter Details Date Type Department Care Team (Late st Contact Info) Description 05/07/2018 Transcribed Document [facility] Family Medicine [address] [place] [address] ProviderZion MD [address] [place] [address] Social History Tobacco Use Types [...]
--- OUTSIDE RECORDS SUMMARY | 2025-01-01 09:05 | XMS_ITS | Encounter Summary ---
Author Organization [employer] ([place], [place], [place], [place], [place]) Address [address] [place] [address] Care Team Providers Care Fire Technology Instructor Name Role Phone Unavailable Primary Care Provider Unavailabl e Encounter Details Date Type Department Care Team (Late st Contact Info) Description 03/29/2018 Transcribed Document [facility] [address] [place] [address] ProviderZion MD [address] [place] [address] Social History Tobacco Use Types [...] - Zion ProviderMD - 03/29/2018 3:54 PM TWISTING FRAME FIXER Patient Education Materials Follows:Disease Endocarditis Endocarditis is [...] these instructions at home: Medicines ??? Take sgmx-lpk-woitgfu and prescription medicines only as told by [...] 01/28/2006 Document Revised: 11/09/2016 Document Reviewed: 11/09/2016 Else123ContactForm Interactive Patient Education ? 2017 [employer] documented in this encounter Plan of Treatment Not on file documented as of this encounter Visit Diagnoses Not on filedocumented in this encounter
--- OUTSIDE RECORDS SUMMARY | 2025-01-01 09:05 | XMS_ITS | Encounter Summary ---
Author Organization [employer] ([place], [place], [place], [place], [place]) Address [address] [place] [address] Care Team Providers Care Still Operator Gin Name Role Phone Unavailable Primary Care Provider Unavailabl e Encounter Details Date Type Department Care Team (Late st Contact Info) Description 05/07/2018 Transcribed Document [facility] [place] [address] [place] [address] ProviderZion MD [address] [place], [place] [phone] Social History Tobacco Use Types Packs/Day Years [...] 16:09 EDT Electronically signed by Jorge Alberto [facility] Conversion Housecleaner Floor Cerner at 05/29/2022 8:32 PM CDT documented in this encounter Plan of Treatment Not on file documented as of this encounter Visit Diagnoses Not on filedocumented in this encounter
--- OUTSIDE RECORDS SUMMARY | 2025-01-01 09:05 | XMS_ITS | Encounter Summary ---
Author Organization [employer] ([place], [place], [place], [place], [place]) Address [address] [place] [address] Care Team Providers Care Pump Operator Byproducts Name Role Phone Unavailable Primary Care Provider Unavailabl e Encounter Details Date Type Department Care Team (Late st Contact Info) Description 03/29/2018 Transcribed Document [facility] Family Medicine [address] [place] [address] ProviderZion MD [address] [place], [place] [phone] Social History Tobacco Use Types Packs/Day Years Used Date Smoking Tobacco: Never Assessed Comments Unknown Sex and Gender Information Value Date Recorded Sex Assigned at Not on file Legal Sex Female 4:39 PM CDT Gender Identity Not on file Sexual Orientation Not on file documented as of this encounter Miscellaneous Notes * Cerner Conversion Note - Historical ProviderMD - 03/29/2018 1:20 PM SAFE EXPERT Care Management Assessment/Plan Entered On: 03/29/2018 13:22 EST Performed On: 03/29/2018 13:20 EST by Odalys Bush Rn-Title ClerkLubricating Specialist Note Anticipated Discharge Date : 03/30/2018 14:00 EST Care Management Note : Confirmed with [facility] that patient can transfer today [phone]; [phone]. Spoke with patient's daughter Jazmine [phone] who plans to transport[address] Dr. Hamilton advised and dishcarge pharmacy aware. Patient should be ready to transport by 15:00. Care Management Note Report : Ninoska Cuellar, Rn-Title Clerk Ed - 03/28/18 20:23:22 CM faxed orders to [facility] for IV abx f [phone] per orders. CM will need to call [facility] to notify them of final d/c plan per MD orders p [phone]. CM to follow for ongoing d/c planning/needs. Ninoska Cuellar, Rn-Title Clerk Ed - 03/28/18 18:12:15 CM recieved call from Gama at [facility] stating they can take pt at their facility, but not until Saturday, as they now have an agreement with [facility]. CM then spoke with Edie from [facility] and she again confirms they can accept pt at their facility tomorrow. CM updated pt and now pt is agreeable to go to [facility]. She also gave CM permission to speak with Jazmine joshi by phone p [phone]. CM spoke with Jazmine and she is agreeable with plan for [facility], stating its much closer to them, approx 30 min. Pt tells CM that her PCP, Dr. Davis had told her that she was not able to do IV abx from home. Discharge plan will be to go to [facility] in the am. CM updated Dr. Stauffer and he reports he will notify [facility] for tomorrow. CM will cont to follow for ongoing d/c planning/needs. Ninoska Cuellar, Rn-Title Clerk Ed - 03/28/18 16:01:02 [facility] Clem states home cost for Rocephin is $3.70/wk. She states they may be able to contract with SNF to provide abx at pt's cost. She asked CM to have SNF call Paulo at their office to see about arranging. CM called MADELYN Corona with [facility]. Updated BS RNAva. CM will cont to follow. Ninoska Cuellar, Rn-Title Clerk Ed - 03/28/18 14:57:29 Called [facility] and spoke with Chiquita and updated her on IV abx needs. SHe will check cost and call CM back to see if bed offer is still on the table. CM left for Sheri with [facility] to update her, left requesting return phone call. CM updated pt and she appears discouraged that [facility] will not accept her as a pt. She tells CM that she is considering just going home. BLAKE also called Clem with [facility] to argueta abx at home. She states that [facility] may also be able to contract with facility to provide them with abx at their cost. CM faxed info on pt and abx to [facility] f [phone]. CM updated BS RN, Ava. CM will cont to follow. Ninoska Cuellar, Rn-Title Clerk Ed - 03/28/18 14:21:[address] Robert bradley and he tells CM that pt is ready for discharge from his standpoint and that ID has a plan in place for IV abx. PT does have a PICC in place. Recieved VM from [facility] with [facility] p [phone] stating they are interested in pt. CM went to BS to speak with pt to discuss bed offers. CM presented bed offers and pt tells CM that she really doesn't want to go to another facility. Pt tells CM that she only wants to go to [facility], as she has been there in the past. [facility] had not make bed offer at this time. BLAKE called and spoke with Gama in admissions at [facility] and she tells CM that per her DON, they do not believe they can meet pt's needs at this time. CM pressed for more information and Gama told CM that she would have DON call her. -CM then spoke with MADELYN Corona at [facility] and she states that pt appears too sick at this time to come to their facility. LBAKE provided her with verbal updates, as well as faxed updates f [phone]. She states they will reevaluate now, knowing [...] pt at this time due to the $8625-6252 IV rocephin cost through 05/04/[address] Diaz orders. Cm to follow for ongoing d/c planning/needs. Stew Porras, REGULO - 03/27/18 16:25:12 edie from [facility] ([phone]) called to make bed offer. bed offers will be presented to pt 03/28. [phone] Stew Porras, RN - 03/27/18 15:00:29 spoke to ID who states pt maybe ready for dc as early as 03/28. id and attending PA are recommending SNF. spoke with pt and her dtr, jazmine and informed them of suggestion from drs to dc to snf for iv abx. pt and dtr in agreement and referrlas made via [facility] [place].... [place]. Stew Porras, REGULO - 03/27/18 10:34:34 RRS-43 + for BROCK CT consulted and per ID, infection must clear prior to any ant surgical intervention Currnelty on rocephin iv w/bld cx pending Documentation Status Complete : Yes Odalys Bush, Rn-Title Clerk - 03/29/2018 13:20 EST Electronically signed by Jorge Alberto [facility] Conversion Baker Operator Automatic Cerner at 05/29/2022 8:48 PM CDT documented in this encounter Plan of Treatment Not on file documented as of this encounter Visit Diagnoses Not on filedocumented in this encounter
--- OUTSIDE RECORDS SUMMARY | 2025-01-01 09:05 | XMS_ITS | Encounter Summary ---
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 Then may suppress afterwards with penicillin VK 250 mg by mouth twice a day for life. Follow up: ======= Follow up with PCP in 1-2 wks Follow up with Cardiology in 2-4 wks BROCK in 4-[address] Alan at [facility]. follow up with ID in [...] to have bradycardia and was admitted to [facility] on 03/23/17. Urine culture obtained at [facility] [...]
--- OUTSIDE RECORDS SUMMARY | 2025-01-01 09:05 | XMS_ITS | Encounter Summary ---
Author Organization [employer] ([place], [place], [place], [place], [place]) Address [address] [place] [address] Care Team Providers Care Senior Director Insight Name Role Phone Unavailable Primary Care Provider Unavailabl e Encounter Details Date Type Department Care Team (Late st Contact Info) Description 03/23/2018 Transcribed Document [facility] [place] Family [place] [address] [place] [address] ProviderZion MD [address] [place], [place] [...] - Historical ProviderMD - 03/23/2018 5:28 PM OCCUPATIONAL HEALTH AND SAFETY ADVISER Admission History, Adult Entered On: 03/23/2018 17:38 [...] #2 Relationship : sister Primary Language : Slovenian Preferred Communication Mode : Verbal Communication Barrier [...] Scale Risk Level : 25-45 Medium Risk [place] Fall Interventions : Adequate lighting, Assistive devices [...] Source : Stated Height Entry Format : Reynolds Height, Feet : 5 ft(Converted to: 152 [...] Body Mass Index : 31.4 kg/m2 (HI) [place] Body Weight : 47 kg Demetri Arrington [...] 17:28 EST Electronically signed by Jorge Alberto, [facility] Conversion Retail Sales Manager Cerner at 05/29/2022 8:46 PM CDT documented in this encounter Plan of Treatment Not on file documented as of this encounter Visit Diagnoses Not on filedocumented in this encounter
--- OUTSIDE RECORDS SUMMARY | 2025-01-01 09:05 | XMS_ITS | Encounter Summary ---
Author Organization [employer] ([place], [place], [place], [place], [place]) Address [address] [place] [address] Care Team Providers Care Cloth Sponger Name Role Phone Unavailable Primary Care Provider Unavailabl e Encounter Details Date Type Department Care Team (Late st Contact Info) Description 03/29/2018 Transcribed Document [facility] [place] [facility] [place] [address] ProviderZion MD [address] [place] [phone] Social History Tobacco Use Types Packs/Day Years Used Date Smoking Tobacco: Never Assessed Comments Unknown Sex and Gender Information Value Date Recorded Sex Assigned at Not on file Legal Sex Female 4:39 PM CDT Gender Identity Not on file Sexual Orientation Not on file documented as of this encounter Miscellaneous Notes * Cerner Conversion Note - Zion ProviderMD - 03/29/2018 1:35 PM PRESSURE DISPATCHER Patient: ETHAN LOREDO Age: 57 years Sex: [...] Rocephin: 2 Gram, 100 mL/Hr, IV Piggyback, [id number] Tylenol: 650 mg, Oral, Q4H, PRN: Other [...] 0 Refill(s) Rocephin: 2 Gram, IV Piggyback, [id number], 0 Refill(s) carvedilol 3.125 mg oral tablet: [...] At Bedtime Rocephin 2 Gram, IV Piggyback, [id number] , Medications (25) Active Scheduled: (13) aspirin EC 81 mg tab 81 mg 1 Tab, Oral, Daily carvedilol 3.125 mg tab 3.125 mg 1 Tab, Oral, Daily cefTRIAXone 2 Gram, IV Piggyback, [id number] citalopram 20 mg tab 20 mg 1 [...] - Coronary artery disease / SNOMED CT 6842995822 / Confirmed Cardiomyopathy / SNOMED CT 540623941 / Confirmed HLD - Hyperlipidemia / SNOMED CT 617878658 / Confirmed HTN - Hypertension / SNOMED CT 9480414292 / Confirmed Resolved: COPD - Chronic obstructive pulmonary disease / SNOMED CT 026399354, Active Problems (14) Anxiety Atrial flutter Bladder [...] 03/29/2018 06:25 Blood Urea Nitrogen 53 mg/dL MI 03/29/2018 06:25 Glucose Level 97 mg/dL 03/29/2018 06:25 Calcium Level 9.4 mg/dL 03/29/2018 06:25 Impression and Plan EP status ok. Inc bun/cr- dc lisinopril. On No diuretics documented in this encounter Plan of Treatment Not on file documented as of this encounter Visit Diagnoses Not on filedocumented in this encounter
--- OUTSIDE RECORDS SUMMARY | 2025-01-01 09:05 | XMS_ITS | Encounter Summary ---
Author Organization [employer] ([place], [place], [place], [place], [place]) Address [address] [place] [address] Care Team Providers Care Extrusion Die Corrector Name Role Phone Unavailable Primary Care Provider Unavailabl e Encounter Details Date Type Department Care Team (Late st Contact Info) Description 05/07/2018 Transcribed Document [facility] [place] Family Medicine [facility] [place] [address] ProviderZion MD [address] [place] [address] Social History Tobacco Use Types Packs/Day [...] Zion ProviderMD - 05/07/2018 1:16 PM CDT [address] [place] [address] Patient Copy Patient Information: Name: ETHAN CRONIN Current Date: 05/07/2018 13:16:44 : 1960 Patient Address: [address] [place] [id number] Patient Attending Physician: AJAY MARCANO MD-CAR Primary Care Provider: SUJIT DAWKINS (REF)IFTIKHAR Primary Care Provider Discharge Diagnosis: Weight on Admission: 163 lb, 0 oz Comment: Follow-up Instructions: With: Address: When: AJAY MARCANO [address] [facility], [address] [place] [id number] Business ([employer] Within 2 to 3 days Comments: Follow-up [...] Patient education materials: Transesophageal Echocardiogram Transesophageal echocardiography (BORCK) is a picture test of your heart [...] 11/25/2009 Document Revised: 07/05/2016 Document Reviewed: 07/30/2013 [employer] Interactive Patient Education ? 2017 [employer]. CIGARETTE SMOKING: The facts are clear, cigarette smoking will shorten your life. Smoking can cause many illnesses along the way. As a healthcare provider, we recommend that you stop smoking. Assistance with quitting is available by contacting 0-770-MJQU-NOW. This is a free resource providing counseling, [...] Be sure to sign up for the [employer] patient portal, which gives you 03/09 access to your medical information ??? including these discharge instructions ??? using your computer, smartphone, or tablet. Just go to [employer] to get started. Questions? Call . [facility] would like to thank you for allowing us to assist you with your healthcare needs. GERTRUDE Mcconnell VERONICA GAY, (or claims service representative) have received the above patient education materials/instructions and have verbalized understanding: Patient Signature _ Date/Time Patient Dairy Quality Assurance Officer Signature (if needed) Date/Time Clinician/Hospital Dairy Quality Assurance Officer Signature (if needed) Date/Time Electronically signed by Jorge Alberto, [facility] Conversion Glazier Metal Furniture Cerner at 05/29/2022 8:56 PM CDT documented in this encounter Plan of Treatment Not on file documented as of this encounter Visit Diagnoses Not on filedocumented in this encounter
--- OUTSIDE RECORDS SUMMARY | 2025-01-01 09:05 | XMS_ITS | Encounter Summary ---
Author Organization [employer] ([place], [place], [place], [place], [place]) Address [address] [place] [address] Care Team Providers Care Compensation Advisor Name Role Phone Unavailable Primary Care Provider Unavailabl e Encounter Details Date Type Department Care Team (Late st Contact Info) Description 03/23/2018 Transcribed Document [facility] [place] Family Medicine [address] [place] [address] ProviderZion MD [address] [place] [address] Social History Tobacco Use Types [...] - Historical ProviderMD - 03/23/2018 5:16 PM KEG WASHER Event Note Entered On: 03/23/2018 17:17 EST Performed On: 03/23/2018 17:16 EST by Demetri Arrington, Rn Event Note Event Date/Time : 03/23/2018 17:16 EST Description of Event : patient to rm # [id number] Kristen Nelson notified Demetri Arrington, Rn - 03/23/2018 17:16 EST Electronically signed by Jorge Alberto [facility] Conversion Sales Assistant Entertainment And Media Cerner at 05/29/2022 8:41 PM CDT documented in this encounter Plan of Treatment Not on file documented as of this encounter Visit Diagnoses Not on filedocumented in this encounter
[2025-01-01 09:09] LABS: Hematocrit 24.9 % (37.0-47.0); Hemoglobin 7.3 g/dL (12.2-16.2); Immature Granulocytes % 0.6 %; Mean Corpuscular HGB Conc 29.3 g/dL (31.8-35.4); Mean Corpuscular Hemoglobin 25.3 pg (27.0-31.2); Mean Corpuscular Volume 86.2 fl (81-99); Nucleated Red Blood Cells % 0 %; Platelet Count 248 K/mm3 (142-424); Red Blood Count 2.89 M/mm3 (4.20-5.40); Red Cell Distribution Width-SD 60.2 fL; White Blood Count 10.8 K/mm3 (4.8-10.8)
[2025-01-01 09:40] LABS: Alanine Aminotransferase 38 U/L (12-78); Albumin Level 3.3 g/dl (3.5-5.0); Albumin/Globulin Ratio 1.4 (1.1-1.8); Alkaline Phosphatase 147 U/L (38-126); Anion Gap 10.5 mEq/L (5-15); Aspartate Amino Transferase 26 U/L (14-36); Bilirubin,Total 0.4 mg/dl (0.2-1.3); Calcium 8.4 mg/dl (8.4-10.2); Carbon Dioxide 27 mmol/L (22.0-30.0); Chloride 101 mmol/L (98-107); Creatinine,Serum 2.60 mg/dl (0.52-1.04); Estimated Glomerular Filt Rate 19 ml/min (>60); GFR (African American) 23 ML/MIN (>60); Globulin 2.4 g/dL (1.3-3.2); Glucose 137 mg/dl (74-100); Potassium 3.5 mmoL/L (3.5-5.1); Sodium 135 mmol/L (136-145); Total Protein,Serum 5.7 g/dl (6.3-8.2)
[2025-01-01 09:53] LABS: Blood Urea Nitrogen 99 mg/dl (7-17)
== END 2025-01-01 23:59 | disposition home or self-care (01) ==
LOC: LAB.DROPOF 09:01
PROVIDERS: PCP Family Medicine; Visit Provider Family Medicine
DX: K74.60 Unspecified cirrhosis of liver (principal); D64.9 Anemia, unspecified
CPT/HCPCS: 36415; 80053; 85025

== ENCOUNTER 2025-01-08 06:42 | Emergency (ER) | payer MEDICARE, MEDICAID, SELFPAY ==
--- OUTSIDE RECORDS SUMMARY | 2024-11-13 10:20 | XMS_ITS | Encounter Summary ---
Author Organization Healthcare Address [address] [place] [address] Care Team Providers Care Supervisor Phosphoric Acid Name Role Phone Cosme Davis MD Primary Care Provider [phone] Reason for Referral * Consultation (Routine) - Authorized Specialty Diagnoses / Procedures Referred By Yogi tapia Referred To Contact Physical Therapy Diagnoses Pain in pelvis Smiley Negrete PA [address] [facility] [address] [place] [address] Phone: tel: fax: Referral ID Status Reason Start Date Expiration Date Visits Requested Visits Authorized [id number] Authorized Consult and Treat 11/13/2024 05/15/2026 1 1 Reason for Visit * Reason Comments Follow-up Encounter Details Date Type Department Care Team (Late st Contact Info) Description 11/13/2024 11:20 AM EDT [facility] [address] [place] [address] Paulo Darnell MD [address] [facility] [address] [place] [address] Pain in pelvis (Primary Dx) Social History Tobacco Use Types Packs/Day Years Used Date Smoking Tobacco: Every Day Cigarettes Smokeless Tobacco: Never Tobacco Cessation:Ready to Q uit: Not Asked; Counseling Given: Not Answered Alcohol Use Standard Drinks/Week Comments Not Currently 0 (1 standard drink = 0.6 oz pur e alcohol) Humiliation, Afraid, Rape, a nd Kick questionnaire Answer Date Recorded Within the last year, have y ou been afraid of your partner or ex-partner? Patient unable to answer 10/13/2024 Within the last year, have y ou been humiliated or emotionally abused in other ways by your partner or ex-partner? Patient unable to answer 10/13/2024 Within the last year, have y ou been kicked, hit, slapped, or otherwise physically hurt by your partner or ex-partner? Patient unable to answer 10/13/2024 Within the last year, have y ou been raped or forced to have any kind of sexual activity by your partner or ex-partner? Patient unable to answer 10/13/2024 Social Connection and Isolation Panel Answer Date Recorded Frequency of Communication with Friends and Fami ly Not on file 10/13/2024 Frequency of Social Gatherings with Friends and Family Not on file 10/13/2024 Attends Episcopal Services Not on file 10/13 Active Member of Clubs or Organizations Not on f ile 10/13/2024 Attends Club or Organization Meetings Not on paul e 10/13/2024 Are you , , di vorced, , never , or living with a partner? Never 10/13/2024 Overall Financial Resource Strain (CARDIA) Answe r Date Recorded How hard is it for you to pa y for the very basics like food, housing, medical care, and heating? Not very hard 10/13/2024 Hunger Vital Sign Answer Date Recorded Within the past 12 months, y ou worried that your food would run out before you got the money to buy more. Never true 10/14/19 25 Within the past 12 months, t he food you bought just didn't last and you didn't have money to get more. Never true 10/13/2024 PRAPARE - Transportation Answer Date Re corded In the past 12 months, has l ack of transportation kept you from medical appointments or from getting medications? No 03/2024 In the past 12 months, has l ack of transportation kept you from meetings, work, or from getting things needed for daily living? No 10/13/2024 Housing Stability Vital Sign Answer Palmer e Recorded In the last 12 months, was t here a time when you were not able to pay the mortgage or rent on time? No 10/13/2024 Number of Times Moved in the Last Year Not on fi le 10/13/2024 At any time in the past 12 m [facility], were you homeless or living in a usp (including now)? No 10/13/2024 [facility] Utilities Answer Date Recorded In the past 12 months has [employer], gas, oil, or water [employer] threatened to shut off services in your home? No 10/13/2024 Comments Unknown Sex and Gender Information Value Date Recorded Sex Assigned at Not on file Legal Sex Female 8:26 PM EDT Gender Identity Not on file Sexual Orientation Not on file documented as of this encounter Last Filed Vital Signs Vital Sign Reading Time Taken Comments Blood Pressure 102/62 11/13/2024 11:20 AM EDT Pulse 76 11/13/2024 11:20 AM EDT Temperature 36.4 C (97.6 F) 11/13/2024 11:20 AM EDT Respiratory Rate - - Oxygen Saturation 97% 11/13/2024 11:20 AM EDT Inhaled Oxygen Concentration - - Weight 67.1 kg (148 lb) 11/13/2024 11:20 AM EDT Height 154.9 cm (5' 1 ) 11/13/2024 11:20 AM EDT Body Mass Index 27.96 11/13/2024 11:20 AM EDT documented in this encounter Miscellaneous Notes * Progress Notes - Paulo Darnell MD - 11/13/2024 11:20 AM EDT 11/13/2024 ORTHOPEDIC TRAUMA HISTORY AND PHYSICAL Injury/Tx: Pelvic ring injury HPI: Laxmi Cronin is a 64-year-old female with a past medical history of type 2 diabetes, CKD, AFib, mitral valve regurgitation, hypothyroidism, CAD status post CABG, bladder cancer, tobacco use, peripheral vascular disease, and hyperlipidemia status post fall from standing height presentingwith a pelvic ring injury. She was evaluated in the hospital and her pelvic ring injury was determined to be stable. She was made protected weight-bearing with a walker. She is here today for follow up. She has been in a longterm facility. She has been working with physical therapy. She useda walker prior to this injury and she has been using a walker with physical therapy. PAST MEDICAL HISTORY: Past Medical History[1] Past Surgical History: Surgical History[2] Review of Systems: 10 points ROS complete: General: no fatigue, no weakness, no fevers, no chills Skin: no new rashes Cardiac: no chest pain, SOB Respiratory: normal respiratory status, no cough, wheezing MSK: per HPI Family History: Family History[3] Medications: Current Medications[4] Allergies: Allergies[5] Social History Social History Occupational History Not on file Tobacco Use Smoking status: Every Day Types: Cigarettes Smokeless tobacco: Never Vaping Use Vaping status: Never Used Substance and Sexual Activity Alcohol use: Not Currently Drug use: Yes Types: Marijuana Sexual activity: Defer Vital signs: Visit Vitals BP 102/62 Pulse 76 Temp 36.4 ??C (97.6 ??F) Ht 1.549 m (5' 1 ) Wt 67.1 kg (148 lb) SpO2 97% BMI 27.96 kg/m?? Smoking Status Every Day BSA 1.7 m?? Constitutional: Well developed. Well nourished. Psychologic: Appropriate mood and affect. ENT: Normocephalic, EOM intact. Moist oral mucosa. Pulmonary: unlabored breathing, no wheezing. MUSCULOSKELETAL EXAM: Pelvis No instability with medially directed compression. Mild pain with medially directed compression. Motor intact EHL/FHL/TA/GS bilaterally. Sensation intact to light touch S/S/SP/DP/T nerve distributions bilaterally. Brisk cap refill less than 2 seconds, warm well perfused distally bilaterally. IMAGING: I have personally ordered, reviewed, and interpreted the patients imaging: X- rays of the pelvis obtained today show a right ilium fracture and a right inferior pubic rami fracture. Unchanged alignment from prior. Interval healing noted ASSESSMENT/PLAN: 64-year-old female status post above. Her x-rays are stable today. She will continue weight-bearingas tolerated with a walker. She will continue work with physical therapy. She will follow up as needed. Paulo Darnell MD Orthopaedic Trauma [1] Past Medical History: Diagnosis Date History of urinary diversion procedure 12/19/20 Old myocardial infarction History of myocardial infarction Personal history of malignant neoplasm of bladder History of malignant neoplasm of bladder Personal history of other diseases of the circulatory system History of congestive heart failure Personal history of other diseases of the circulatory system History of coronary artery disease Personal history of other endocrine, nutritional and metabolic disease History of hyperlipidemia Personal history of other endocrine, nutritional and metabolic disease History of hypothyroidism [2] Past Surgical History: Procedure Laterality Date CARDIAC PACEMAKER PLACEMENT N/A Pacemaker Placement from [employer] SECTION, LOW TRANSVERSE N/A Section from [employer] CHOLECYSTECTOMY N/A Cholecystectomy from [employer] HYSTERECTOMY N/A Hysterectomy from [employer] [3] Family History Problem Relation Name Age of Onset Diabetes Father Hypertension Father Prostate cancer Father Hyperlipidemia Father [4] Current Outpatient Medications: albuterol (Proventil) (2.5 MG/3ML) 0.083% nebulizer solution, INHALE THREE (3) ML (1 VIAL) THREE (3) TIMES A DAY BY NEBULIZATION ROUTE NEEDED FOR 30 DAYS, FOR SHORTNESS OF BREATH., Disp: , Rfl: albuterol 108 (90 Base) MCG/ACT inhaler, Inhale 2 puffs 4 times a day., Disp: , Rfl: ALPRAZolam (Xanax) 0.25 MG tablet, Take 1 tablet by mouth 2 times a day as needed for anxiety., Disp: 30 tablet, Rfl: 0 amiodarone (Pacerone) 200 MG tablet, Take 2 tablets by mouth daily., Disp: , Rfl: apixaban (Eliquis) 5 MG tablet, Take 1 tablet by mouth 2 times a day., Disp: , Rfl: Aspirin Low Dose 81 MG EC tablet, , Disp: , Rfl: atorvastatin (Lipitor) 40 MG tablet, Take 1 tablet by mouth daily., Disp: , Rfl: citalopram (CeleXA) 20 MG tablet, Take 1 tablet by mouth daily., Disp: , Rfl: clopidogrel (Plavix) 75 MG tablet, Take 1 tablet by mouth daily., Disp: , Rfl: folic acid (Folvite) 1 MG tablet, Take 1 tablet by mouth daily., Disp: , Rfl: HYDROcodone-acetaminophen ([place]) 5-325 MG tablet, , Disp: , Rfl: insulin glargine (Lantus) 100 UNIT/ML injection vial, Inject 10 Units under the skin nightly., Disp: , Rfl: insulin lispro (Admelog, HumaLOG) 100 UNIT/ML injection pen, Inject 1-10 Units under the skin 3 times a day with meals., Disp: , Rfl: Insulin Lispro (Admelog, HumaLOG) 100 UNIT/ML injection vial, INJECT DIRECTED PER SLIDING SCALE VIA INSULIN PUMP TO MAXIMUM OF 80 UNITS PER DAY, Disp: , Rfl: insulin syringe-needle U-100 31G X 5/16 1 mL misc, , Disp: , Rfl: Lantus SoloStar 100 UNIT/ML injection pen, , Disp: , Rfl: levothyroxine (Synthroid, Levoxyl) 25 MCG tablet, Take by mouth daily., Disp: , Rfl: midodrine (Proamatine) 10 MG tablet, Take 1 tablet by mouth every 12 hours., Disp: , Rfl: mirtazapine (Remeron) 15 MG tablet, Take 1 tablet by mouth nightly., Disp: , Rfl: ondansetron (Zofran) 4 MG tablet, Take 1 tablet by mouth every 6 hours as needed for nausea or vomiting., Disp: , Rfl: pantoprazole (Protonix) 40 MG EC tablet, Take 1 tablet by mouth daily before breakfast. Do not crush, chew, or split., Disp: , Rfl: penicillin V (Veetid) 250 MG tablet, , Disp: , Rfl: rOPINIRole (Requip) 1 MG tablet, Take 1 tablet by mouth nightly., Disp: , Rfl: thiamine (Vitamin B-1) 100 MG tablet, Take 1 tablet by mouth daily., Disp: , Rfl: [5] No Known Allergies documented in this encounter Plan of Treatment Upcoming Encounters Date Type Department Care Team (Late st Contact Info) Description 01/21/2025 1:[address] [facility] [address], [address] [place] [address] 01/21/2025 2:[address] [facility] [address], [address] [place] [address] 01/21/2025 2:40 PM EST Office Visit [facility] [address] [place] [address] Jose Rosario MD [address] [place] [address] Scheduled Referrals Name Type Priority Associated Diagnoses Order Schedule Ambulatory referral to Physical Therapy Outpatient Referral Routine Pain in pelvis 1 Occurrences starting 11/13/2024 until 05/17/2026 documented as of this encounter Results * XR Pelvis 3+ Views (11/13/2024 12:00 PM EDT) Anatomical Region Laterality Modality Body, Pelvis Digital Radiogra phy Impressions 11/13/2024 12:21 PM EDT Limited study. Healing changes involving the right obturator ring fracture which appear in similar alignment. Right iliac wing fracture not well-seen. CRITICAL RESULT: No. COMMUNICATION: Per this written report. Drafted by Thomas Kunz MD on 11/13/2024 12:19 PM Final report signed by Thomas Kunz MD on 11/13/2024 12:21 PM Narrative 11/13/2024 12:21 PM EDT CLINICAL INDICATION: pain TECHNIQUE: XR PELVIS 3+ VIEWS COMPARISON: October 19, 2024 FINDINGS: Overlying stool, soft tissue, and bowel gas severely limits bone detail. Aortic and iliac stent grafts noted. Multiple clips are seen in the pelvis. No hip subluxation or dislocation. Similar alignment of right obturator ring fracture. Right iliac wing fracture not well-seen. Procedure Note Thomas Kunz MD - 11/13/2024 CLINICAL INDICATION: pain TECHNIQUE: XR PELVIS 3+ VIEWS COMPARISON: October 19, 2024 FINDINGS: Overlying stool, soft tissue, and bowel gas severely limits bone detail.Aortic and iliac stent grafts noted. Multiple clips are seen in thepelvis. No hip subluxation or dislocation. Similar alignment of rightobturator ring fracture. Right iliac wing fracture not well-seen. IMPRESSION: Limited study. Healing changes involving the right obturator ring fracturewhich appear in similar alignment. Right iliac wing fracture notwell-seen. CRITICAL RESULT: No. COMMUNICATION: Per this written report. Drafted by Thomas Kunz MD on 11/13/2024 12:19 PM Final report signed by Thomas Kunz MD on 11/13/2024 12:21 PM Paulo Darnell MD IMG XR PROCEDURES Final Resu lt documented in this encounter Visit Diagnoses Diagnosis Pain in pelvis- Primary Pain in pelvis documented in this encounter Additional Health Concerns Infection Onset Date Last Indicated Resolved Time ESBL 10/13/2024 10/13/2024 Assessment Noted Time A fall risk assessment has been complete d for the patient 11/13/2024 11:20 AM EDT A Body Mass Index follow-up plan has been documented for the patient 11/13/2024 12:14 PM EDT documented as of this encounter Care Teams Supervisor Phosphoric Acid Relationship Specialty Start Date End Date Cosme Davis MD [address] [place] [address] PCP - General 06/24/20 documented as of this encounter
--- OUTSIDE RECORDS SUMMARY | 2024-11-13 10:23 | XMS_ITS | Encounter Summary ---
Author Organization Healthcare Address [address] [place] [address] Care Team Providers Care Anthropological Linguist Name Role Phone Cosme Davis MD Primary Care Provider [phone] Encounter Details Date Type Department Care Team (Latest Contact Info) Description 11/13/2024 11:23 AM EDT - 11/13/2024 11:59 PM EDT Hospital Encounter [place] [facility] Rad[facility] [address], 1st [place] [address] Pain in pelvis Discharge Disposition: Home or [...] any time in the past 12 m [facility], were you homeless or living in a intermediate (including now)? No 10/13/2024 [facility] Utilities Answer Date Recorded In the past 12 months has th e [employer], gas, oil, or water company threatened to [...] tablet by mouth daily. 08/21/2018 HYDROcodone-acet aminophen ([place]) 5-325 MG tablet 11/02/2024 insulin glargine (Lantus) [...] Info) Description 01/21/2025 1:30 PM EST Appointment [facility] Lab [address], [address] [place] [address] 01/21/2025 2:00 PM EST Appointment [facility] [address], [address] [place] [address] 01/21/2025 2:40 PM EST Office Visit [facility] [address], [address] [place] [address] Jose Rosario MD [address] [facility] [address] [place] [address] documented as of this encounter Procedures Procedure [...] iliac wing fracture not well-seen. Procedure Note hTomas Kunz MD - 11/13/2024 CLINICAL INDICATION: pain [...] documented as of this encounter Care Teams Anthropological Linguist Relationship Specialty Start Date End Date Cosme Davis MD [address] [place] [address] PCP - General 06/24/20 documented as of this encounter
[2025-01-08 06:42] VITALS: BP 129/78; PULSE 74; RESP 18; TEMP 36.6; O2SAT 98; BMI 39.0
[2025-01-08 06:47] VITALS: BP 128/78; PULSE 74; RESP 18; TEMP 36.6; O2SAT 98
--- OUTSIDE RECORDS SUMMARY | 2025-01-08 06:49 | XMS_ITS | Encounter Summary ---
Author Organization [employer] ([place], [place], [place], [place], [place]) Address [address] [place] [address] Care Team Providers Care Chemist Pharmaceutical Name Role Phone Unavailable Primary Care Provider Unavailabl e Encounter Details Date Type Department Care Team (Late st Contact Info) Description 03/29/2018 Transcribed Document [facility] [place] Family Medicine [address] [place] [address] ProviderZion MD [address] [place] [address] Social History Tobacco Use Types [...] - Zion ProviderMD - 03/29/2018 3:30 PM CLINICAL PSYCHIATRIST Care Management Assessment/Plan Entered On: 03/29/2018 15:31 EST Performed On: 03/29/2018 15:30 EST by Odalys Bush Rn-Filtering Machine Tender HelperDoctor Assistant Note Anticipated Discharge Date : 03/30/2018 14:00 EST Care Management Note : Patient discharge summary sent through [facility]. Care Management Note Report : Odalys Bush Rn-Filtering Machine Tender Helper - 03/29/18 13:22:06 Confirmed with [facility] that patient can transfer today [phone]; [phone]. Spoke with patient's daughter Jazmine [phone] who plans to transport[address] Dr. Hamilton advised and dishcarge pharmacy aware. Patient should be ready to transport by 15:00. Ninoska Cuellar Rn-Filtering Machine Tender Helper Ed - 03/28/18 20:23:22 CM faxed orders to [facility] for IV abx f [phone] per md orders. CM will need to call [facility] to notify them of final d/c plan per MD orders p [phone]. CM to follow for ongoing d/c planning/needs. Ninoska Cuellar, Rn-Filtering Machine Tender Helper Ed - 03/28/18 18:12:15 CM recieved call from Gama at [facility] stating they can take pt at their facility, but not until Saturday, as they now have an agreement with [facility]. CM then spoke with Edie from [facility] and she again confirms they can accept pt at their facility tomorrow. CM updated pt and now pt is agreeable to go to [facility]. She also gave CM permission to speak with Jazmine joshi by phone p [phone]. CM spoke with Jazmine and she is agreeable with plan for [facility], stating its much closer to them, approx 30 min. Pt tells CM that her PCP, Dr. Davis had told her that she was not able to do IV abx from home. Discharge plan will be to go to [facility] in the am. CM updated Dr. Stauffer and he reports he will notify [facility] for tomorrow. CM will cont to follow for ongoing d/c planning/needs. Ninoska Cuellar, Rn-Filtering Machine Tender Helper Ed - 03/28/18 16:01:02 [facility] states home cost for Rocephin is $3.70/wk. She states they may be able to contract with SNF to provide abx at pt's cost. She asked CM to have SNF call Paulo at their office to see about arranging. CM called MADELYN Corona with [facility] and she will call [facility] to see if this can be arranged. Updated BS RNAva. CM will cont to follow. Ninoska Cuellar, Rn-Filtering Machine Tender Helper Ed - 03/28/18 14:57:29 Called [facility] and spoke with Chiquita and updated her on IV abx needs. SHe will check cost and call CM back to see if bed offer is still on the table. CM left for [facility] with [facility] to update her, left requesting return phone call. CM updated pt and she appears discouraged that [facility] will not accept her as a pt. She tells CM that she is considering just going home. BLAKE also called Mariahjesus with [facility] to argueta abx at home. She states that [facility] may also be able to contract with facility to provide them with abx at their cost. CM faxed info on pt and abx to [facility] f [phone]. CM updated BS RN, Ava. CM will cont to follow. Ninoska Cuellar, Rn-Filtering Machine Tender Helper Ed - 03/28/18 14:21:[address] Jones this am and he tells CM that pt is ready for discharge from his standpoint and that ID has a plan in place for IV abx. PT does have a PICC in place. Recieved VM from [facility] with [facility] p [phone] stating they are interested in pt. CM went to BS to speak with pt to discuss bed offers. CM presented bed offers and pt tells CM that she really doesn't want to go to another facility. Pt tells CM that she only wants to go to [facility], as she has been there in the past. [facility] had not make bed offer at this time. BLAKE called and spoke with Gama in admissions at [facility] and she tells CM that per her DON, they do not believe they can meet pt's needs at this time. CM pressed for more information and Gama told CM that she would have DON call her. -BLAKE then spoke with MADELYN Corona at [facility] and she states that pt appears too sick at this time to come to their facility. BLAKE provided her with verbal updates, as well as faxed updates f [phone]. She states they will reevaluate now, knowing [...] pt at this time due to the $0840-5420 IV rocephin cost through 05/04/[address] Diaz orders. Cm to follow for ongoing d/c planning/needs. Stew Porras, RN - 03/27/18 16:25:12 edie from [facility] ( ex [phone]) called to make bed offer. bed offers will be presented to pt 03/28. [facility] [phone] Stew Porras, RN - 03/27/18 15:00:29 spoke to ID who states pt maybe ready for dc as early as 03/28. id and attending PA are recommending SNF. spoke with pt and her dtr, jazmine and informed them of suggestion from drs to dc to snf for iv abx. pt and dtr in agreement and [facility] following [place].... [place]. Stew Porras, REGULO - 03/27/18 10:34:34 RRS-43 + for BROCK CT consulted and per ID, infection must clear prior to any ant surgical intervention Currnelty on rocephin iv w/bld cx pending Documentation Status Complete : Yes Odalys Bush Rn-Filtering Machine Tender Helper - 03/29/2018 15:30 EST Info/List/Choices Provided Patient Offered Choice/Affiliations Explained : Yes List/Info Provided Pt/Fam/Support Person : senior care facilities Odalys Bush Rn-Filtering Machine Tender Helper - 03/29/2018 15:30 EST Final Discharge Disposition Note-CM Final Discharge Disposition Note-CM : Transport by Family. Discharge To Care Management : SNF with Medicare Certification-03 Name of Receiving Facility/Provider- : [facility] Odalys Bush Rn-Filtering Machine Tender Helper - 03/29/2018 15:30 EST documented in this encounter Plan of Treatment Not on file documented as of this encounter Visit Diagnoses Not on filedocumented in this encounter
--- OUTSIDE RECORDS SUMMARY | 2025-01-08 06:49 | XMS_ITS | Encounter Summary ---
Author Organization [employer] ([place], [place], [place], [place], [place]) Address [address] [place] [address] Care Team Providers Care Gwot Ia/Ilo Intelligence Support Name Role Phone Unavailable Primary Care Provider Unavailabl e Encounter Details Date Type Department Care Team (Late st Contact Info) Description 03/28/2018 Transcribed Document [facility] Family Medicine [address] [place] [address] ProviderZion MD [address] [place] [address] Social History Tobacco Use Types [...] - Historical ProviderMD - 03/28/2018 8:22 PM MUSEUM CURATOR Care Management Assessment/Plan Entered On: 03/28/2018 20:23 EST Performed On: 03/28/2018 20:22 EST by Ninoska Cuellar Rn-Language Translator Ed Care Management Note Anticipated Discharge Date : 04/03/2018 14:00 EST Care Management Note : CM faxed orders to [facility] for IV abx f [phone] per orders. CM will need to call [facility] to notify them of final d/c plan per orders p [phone]. CM to follow for ongoing d/c planning/needs. Care Management Note Report : Ninoska Cuellar, Rn-Language Translator Ed - 03/28/18 18:12:15 CM recieved call from Gama at [facility] stating they can take pt at their facility, but not until Saturday, as they now have an agreement with [facility]. CM then spoke with Edie from [facility] and she again confirms they can accept pt at their facility tomorrow. CM updated pt and now pt is agreeable to go to [facility]. She also gave CM permission to speak with Jazmine joshi by phone p [phone]. CM spoke with Jazmine and she is agreeable with plan for [facility], stating its much closer to them, approx 30 min. Pt tells CM that her PCP, Dr. Davis had told her that she was not able to do IV abx from home. Discharge plan will be to go to [facility] in the am. CM updated Dr. Stauffer and he reports he will notify [facility] for tomorrow. CM will cont to follow for ongoing d/c planning/needs. Ninoska Cuellar, Rn-Language Translator Ed - 03/28/18 16:01:02 Rubi[facility] Clem states home cost for Rocephin is $3.70/wk. She states they may be able to contract with SNF to provide abx at pt's cost. She asked CM to have SNF call Paulo at their office to see about arranging. CM called MADELYN Corona with [facility] and she will call [facility] to see if this can be arranged. Updated BS RN, Ava. CM will cont to follow. Ninoska Cuellar, Rn-Language Translator Ed - 03/28/18 14:57:29 Called [facility] and spoke with Chiquita and updated her on IV abx needs. SHe will check cost and call CM back to see if bed offer is still on the table. CM left for [facility] with [facility] to update her, left requesting return phone call. CM updated pt and she appears discouraged that [facility] will not accept her as a pt. She tells CM that she is considering just going home. BLAKE also called Clem with [facility] to argueta abx at home. She states that [facility] may also be able to contract with facility to provide them with abx at their cost. CM faxed info on pt and abx to [facility] f [phone]. CM updated BS RNAva. CM will cont to follow. Ninoska Cuellar, Rn-Language Translator Ed - 03/28/18 14:21:[address] Jones this am and he tells CM that pt is ready for discharge from his standpoint and that ID has a plan in place for IV abx. PT does have a PICC in place. Recieved VM from [facility] with [facility] p [phone] stating they are interested in pt. CM went to BS to speak with pt to discuss bed offers. CM presented bed offers and pt tells CM that she really doesn't want to go to another facility. Pt tells CM that she only wants to go to [facility], as she has been there in the past. [facility] had not make bed offer at this [...] updates, as well as faxed updates f [phone]. She states they will reevaluate now, knowing [...] pt at this time due to the $6009-6950 IV rocephin cost through 05/04/[address] Diza orders. Cm to follow for ongoing d/c planning/needs. Stew Porras, RN - 03/27/18 16:25:12 edie from [facility] ([phone] ex [phone]) called to make bed offer. bed offers will be presented to pt 03/28. dtr will provide transportationashely [phone] Stew Porras, RN - 03/27/18 15:00:29 spoke to ID who states pt maybe ready for dc as early as 03/28. id and attending PA are recommending SNF. spoke with pt and her dtr, jazmine and informed them of suggestion from drs to dc to snf for iv abx. pt and dtr in agreement and referrlas made via [facility] to the following counties.... [place]. Stew Porras, RN - 03/27/18 10:34:34 RRS-43 + for BROCK CT consulted and per ID, infection must clear prior to any ant surgical intervention Currnelty on rocephin iv w/bld cx pending Documentation Status Complete : Yes Ninoska Cuellar, Rn-Language Translator Ed - 03/28/2018 20:22 EST Electronically signed by Jorge Alberto [facility] Conversion Syrup Mixer Cerner at 05/29/2022 8:32 PM CDT documented in this encounter Plan of Treatment Not on file documented as of this encounter Visit Diagnoses Not on filedocumented in this encounter
--- OUTSIDE RECORDS SUMMARY | 2025-01-08 06:49 | XMS_ITS | Encounter Summary ---
Author Organization [employer] ([place], [place], [place], [place], [place]) Address [address] [place] [address] Care Team Providers Care Seam Stay Stitcher Name Role Phone Unavailable Primary Care Provider Unavailabl e Encounter Details Date Type Department Care Team (Late st Contact Info) Description 03/29/2018 Transcribed Document [facility] [place] Family Medicine [address] [place] [address] ProviderZion MD [address] [place], [place] [id number] Social History Tobacco Use Types Packs/Day Years Used Date Smoking Tobacco: Never Assessed Comments Unknown Sex and Gender Information Value Date Recorded Sex Assigned at Not on file Legal Sex Female 4:39 PM CDT Gender Identity Not on file Sexual Orientation Not on file documented as of this encounter Miscellaneous Notes * Cerner Conversion Note - Historical ProviderMD - 03/29/2018 2:00 AM PARTS MANAGER Ornamental Brick Installer Details Entered On: 03/29/2018 6:43 EST Performed [...]
--- OUTSIDE RECORDS SUMMARY | 2025-01-08 06:49 | XMS_ITS | Encounter Summary ---
Author Organization [employer] ([place], [place], [place], [place], [place]) Address [address] [place] [address] Care Team Providers Care Manager Life Name Role Phone Unavailable Primary Care Provider Unavailabl e Encounter Details Date Type Department Care Team (Late st Contact Info) Description 03/28/2018 Transcribed Document [facility] [place] [address] [place] [address] ProviderZion MD [address] [place] [address] Social History Tobacco Use Types [...] - Historical ProviderMD - 03/28/2018 5:00 PM QUALITY ASSURANCE AUDITOR Chart Check - Review Order Profile Entered On: 03/28/2018 16:43 EST Performed On: 03/28/2018 17:00 EST by Ava Schmitt RN Chart Check Chart Reviewed Date and Time : 03/28/2018 16:43 EST Ava Schmitt RN - 03/28/2018 16:43 EST Electronically signed by Jorge Alberto [facility] Conversion Shipping And Receiving Cerner at 05/29/2022 8:40 PM CDT documented in this encounter Plan of Treatment Not on file documented as of this encounter Visit Diagnoses Not on filedocumented in this encounter
--- OUTSIDE RECORDS SUMMARY | 2025-01-08 06:49 | XMS_ITS | Encounter Summary ---
Author Organization [employer] ([place], [place], [place], [place], [place]) Address [address] [place] [address] Care Team Providers Care Water Resource Engineering Specialist Name Role Phone Unavailable Primary Care Provider Unavailabl e Encounter Details Date Type Department Care Team (Late st Contact Info) Description 03/28/2018 Transcribed Document [facility] [address] [place] [address] ProviderZion MD [address] [place] [address] Social History Tobacco Use Types [...] - Historical ProviderMD - 03/28/2018 2:01 PM KIDNEY PULLER Care Management Assessment/Plan Entered On: 03/28/2018 14:21 EST Performed On: 03/28/2018 14:01 EST by Ninoska Cuellar Rn-Senior Etl Developer Ed Care Management Note Anticipated Discharge Date : 04/03/2018 14:00 EST Care Management Note : CM spoke with Dr. Jones this am and he tells CM that pt is ready for discharge from his standpoint and that ID has a plan in place for IV abx. PT does have a PICC in place. Recieved VM from [facility] with [facility] p [phone] stating they are interested in pt. CM went to to speak with pt to discuss bed offers. CM presented bed offers and pt tells CM that she really doesn't want to go to another facility. Pt tells CM that she only wants to go to [facility], as she has been there in the past. [facility] had not make bed offer at this time. BLAKE called and spoke with Gama in admissions at [facility] and she tells CM that per her DON, they do not believe they can meet pt's needs at this time. BLAKE pressed for more information and Gama told CM that she would have DON call her. -CM then spoke with MADELYN Corona at [facility] and she states that pt appears too sick at this time to come to their facility. CM provided her with verbal updates, as well as faxed updates f [phone]. She states they will reevaluate now, knowing [...] pt at this time due to the $8740-4964 IV rocephin cost through 05/04/[address] Diaz orders. Cm to follow for ongoing d/c planning/needs. Care Management Note Report : Stew Porras, REGULO - 03/27/18 16:25:12 blayne from [facility] ( ex 108) called to make bed offer. bed offers will be presented to pt 03/28. dtr [facility] [phone] Stew Porras, REGULO - 03/27/18 15:00:29 spoke to ID who states pt maybe ready for dc as early as 03/28. id and attending PA are recommending SNF. spoke with pt and her dtr, jazmine and informed them of suggestion from drs to dc to snf for iv abx. pt and dtr in agreement and referrlas made via [facility] to the following counties.... [place]. Stew Porras, REGULO - 03/27/18 10:34:34 RRS-43 + for BROCK CT consulted and per ID, infection must clear prior to any ant surgical intervention Currnelty on rocephin iv w/bld cx pending Documentation Status Complete : Yes Ninoska Cuellar, Rn-Senior Etl Developer Ed - 03/28/2018 14:01 EST Electronically signed by [facility] Conversion Manager Public Cerner at 05/29/2022 8:46 PM CDT documented in this encounter Plan of Treatment Not on file documented as of this encounter Visit Diagnoses Not on filedocumented in this encounter
--- OUTSIDE RECORDS SUMMARY | 2025-01-08 06:49 | XMS_ITS | Encounter Summary ---
Author Organization [employer] ([place], [place], [place], [place], [place]) Address [address] [place] [address] Care Team Providers Care Admissions Specialist Name Role Phone Unavailable Primary Care Provider Unavailabl e Encounter Details Date Type Department Care Team (Late st Contact Info) Description 03/28/2018 Transcribed Document [facility] [place] Family Medicine [address] [place] [address] ProviderZion MD [address] [place], [place] [id number] Social History Tobacco Use Types Packs/Day Years Used Date Smoking Tobacco: Never Assessed Comments Unknown Sex and Gender Information Value Date Recorded Sex Assigned at Not on file Legal Sex Female 4:39 PM CDT Gender Identity Not on file Sexual Orientation Not on file documented as of this encounter Miscellaneous Notes * Cerner Conversion Note - Historical ProviderMD - 03/28/2018 5:00 AM FARROWING MANAGER Chart Check - Review Order Profile [...]
--- OUTSIDE RECORDS SUMMARY | 2025-01-08 06:49 | XMS_ITS | Encounter Summary ---
Author Organization [employer] ([place], [place], [place], [place], [place]) Address [address] [place] [address] Care Team Providers Care Melter Supervisor Oxygen Furnace Name Role Phone Unavailable Primary Care Provider Unavailabl e Encounter Details Date Type Department Care Team (Late st Contact Info) Description 03/29/2018 Transcribed Document [facility] [place] Family Medicine [address] [place] [address] ProviderZion MD [address] [place] [address] Social History Tobacco Use Types [...] - Historical ProviderMD - 03/29/2018 5:00 AM CAREER GUIDANCE COUNSELOR Chart Check - Review Order Profile Entered On: 03/29/2018 6:43 EST Performed On: 03/29/2018 5:00 EST by Tiffany Guadalupe RN Chart Check Chart Reviewed Date and Time : 03/29/2018 6:43 EST Powerplans Initiated/Discontinued as Appropriate : Yes All Active Orders Reviewed : Yes Tiffany Guadalupe RN - 03/29/2018 6:43 EST Electronically signed by Jorge Alberto [facility] Conversion Bleach Range Operator Cerner at 05/29/2022 8:36 PM CDT documented in this encounter Plan of Treatment Not on file documented as of this encounter Visit Diagnoses Not on filedocumented in this encounter
--- OUTSIDE RECORDS SUMMARY | 2025-01-08 06:49 | XMS_ITS | Encounter Summary ---
Author Organization [employer] ([place], [place], [place], [place], [place]) Address [address] [place] [address] Care Team Providers Care Weave Defect Charting Clerk Name Role Phone Unavailable Primary Care Provider Unavailabl e Encounter Details Date Type Department Care Team (Late st Contact Info) Description 03/29/2018 Transcribed Document [facility] [place] Family Medicine [address] [place] [address] ProviderZion MD [address] [place] [address] Social History Tobacco Use Types Packs/Day Years Used Date Smoking Tobacco: Never Assessed Comments Unknown Sex and Gender Information Value Date Recorded Sex Assigned at Not on file Legal Sex Female 4:39 PM CDT Gender Identity Not on file Sexual Orientation Not on file documented as of this encounter Miscellaneous Notes * Cerner Conversion Note - Historical ProviderMD - 03/29/2018 1:22 PM ASSISTANT PRESS OPERATOR Nursing Discharge Summary Entered On: 03/29/2018 13:22 EST Performed On: 03/29/2018 13:22 EST by Odalys Bush Rn-Clinical Trainer Discharge Documentation Discharge, Comment : Report: Joshua [phone] Discharge Summary Sent to : Joshua [phone] Odalys Bush Rn-Clinical Trainer - 03/29/2018 13:22 EST Electronically signed by Jorge Alberto [facility] Conversion Feed And Farm Management Adviser Cerner at 05/29/2022 8:31 PM CDT documented in this encounter Plan of Treatment Not on file documented as of this encounter Visit Diagnoses Not on filedocumented in this encounter
--- OUTSIDE RECORDS SUMMARY | 2025-01-08 06:49 | XMS_ITS | Encounter Summary ---
Author Organization [employer] ([place], [place], [place], [place], [place]) Address [address] [place] [address] Care Team Providers Care Electromechanical Equipment Assembler Name Role Phone Unavailable Primary Care Provider Unavailabl e Encounter Details Date Type Department Care Team (Late st Contact Info) Description 03/28/2018 Transcribed Document [facility] [place] [address] [place] [address] ProviderZion MD [address] [place] [address] Social History Tobacco Use Types [...] - Historical ProviderMD - 03/28/2018 6:07 PM CANVAS WORKER APPRENTICE Care Management Assessment/Plan Entered On: 03/28/2018 18:12 EST Performed On: 03/28/2018 18:07 EST by Ninoska Cuellar Rn-Coyote Hunter Ed Care Management Note Anticipated Discharge Date : 04/03/2018 14:00 EST Care Management Note : CM recieved call from Gama at [facility] stating they can take pt at their facility, but not until Saturday, as they now have an agreement with [facility]. CM then spoke with Edie from [facility] and she again confirms they can accept pt at their facility tomorrow. CM updated pt and now pt is agreeable to go to [facility]. She also gave CM permission to speak with Jazmine joshi by phone p [phone]. CM spoke with Jazmine and she is agreeable with plan for [facility], stating its much closer to them, approx 30 min. Pt tells CM that her PCP, Dr. Davis had told her that she was not able to do IV abx from home. Discharge plan will be to go to [facility] in the am. BLAKE updated Dr. Stauffer and he reports he will notify [facility] for tomorrow. CM will cont to follow for ongoing d/c planning/needs. Care Management Note Report : Ninoska Cuellar, Rn-Coyote Hunter Ed - 03/28/18 16:01:02 [facility] home cost for Luis Daniel is $3.70/wk. She states they may be able to contract with SNF to provide abx at pt's cost. She asked CM to have SNF call Paulo at their office to see about arranging. CM called MADELYN Corona with [facility] and [facility]. Updated [facility]. CM will cont to follow. Ninoska Cuellar, Rn-Coyote Hunter Ed - 03/28/18 14:57:29 Called [place] and spoke with Chiquita and updated her on IV abx needs. SHe will check cost and call CM back to see if bed offer is still on the table. CM left for [facility] with [facility] to update her, left requesting return phone call. CM updated pt and she appears discouraged that [facility] will not accept her as a pt. She tells CM that she is considering just going home. BLAKE also called Clem with [facility] to argueta abx at home. She states that [facility] may also be able to contract with facility to provide them with abx at their cost. CM faxed info on pt and abx to [facility] f [phone]. CM updated [facility]. CM will cont to follow. Ninoska Cuellar, Rn-Coyote Hunter Ed - 03/28/18 14:21:[address] Jones this and he tells CM that pt is ready for discharge from his standpoint and that ID has a plan in place for IV abx. PT does have a PICC in place. Recieved VM from [facility] with [facility] p [phone] stating they are interested in pt. CM went to BS to speak with pt to discuss bed offers. CM presented bed offers and pt tells CM that she really doesn't want to go to another facility. Pt tells CM that she only wants to go to [facility], as she has been there in the past. [facility] had not make bed offer at this time. CM called and spoke with Gama in admissions at [facility] and she tells CM that per her DON, they do not believe they can meet pt's needs at this time. CM pressed for more information and Gama told CM that she would have DON call her. -CM then spoke with MADELYN Corona at [facility] and she states that pt appears too sick at this time to come to their facility. CM provided her with verbal updates, as well as faxed updates f [phone]. She states they will reevaluate now, knowing [...] pt at this time due to the $2471-7019 IV rocephin cost through 05/04/[address] Diaz orders. Cm to follow for ongoing d/c planning/needs. Stew Porras RN - 03/27/18 16:25:12 edie from [facility] ( [facility]) called to make bed offer. bed offers will be presented to pt 03/28. [place] [phone] Stew Porras RN - 03/27/18 15:00:29 spoke to ID who states pt maybe ready for dc as early as 03/28. id and attending PA are recommending SNF. spoke with pt and her dtr, jazmine and informed them of suggestion from drs to dc to snf for iv abx. pt and dtr in agreement and referrlas made via [facility] to the following [place].... [place]. Stew Porras RN - 03/27/18 10:34:34 RRS-43 + for [facility] CT consulted and per ID, infection must clear prior to any ant surgical intervention Currnelty on rocephin iv w/bld cx pending Documentation Status Complete : Yes Ninoska Cuellar, Rn-Coyote Hunter Ed - 03/28/2018 18:07 EST Electronically signed by Jorge Alberto, [facility] Conversion Flute Polisher Cerner at 05/29/2022 8:35 PM CDT documented in this encounter Plan of Treatment Not on file documented as of this encounter Visit Diagnoses Not on filedocumented in this encounter
--- OUTSIDE RECORDS SUMMARY | 2025-01-08 06:49 | XMS_ITS | Encounter Summary ---
Author Organization [employer] ([place], [place], [place], [place], [place]) Address [address] [place] [address] Care Team Providers Care Fire Protection Engineer Name Role Phone Unavailable Primary Care Provider Unavailabl e Encounter Details Date Type Department Care Team (Late st Contact Info) Description 03/28/2018 Transcribed Document [facility] [place] [address] ProviderZion MD [address] [place] [address] Social History Tobacco Use Types Packs/Day [...] Historical ProviderMD - 03/28/2018 11:06 AM PRIMER INSPECTOR Patient: ETHAN LOREDO Age: 57 Years Sex: [...]
--- OUTSIDE RECORDS SUMMARY | 2025-01-08 06:49 | XMS_ITS | Encounter Summary ---
Author Organization Healthcare Address [address] [place] [address] Care Team Providers Care Auto Repair Technician Name Role Phone Cosme Davis MD Primary Care Provider [phone] Encounter Details Date Type Department Care Team [...] and Family Not on file 10/13/2024 Attends [employer] Not on file 10/13 Active Member [...] any time in the past 12 m [facility], were you homeless or living in a correction (including now)? No 10/13/2024 [facility] Utilities Answer Date Recorded In the past [...] Info) Description 01/21/2025 1:30 PM EST Appointment [facility] [address] [place] [address] 01/21/2025 2:00 PM EST Appointment [facility] [address] [place] [address] 01/21/2025 2:40 PM EST Office Visit [place] [facility] [address] [place] [address] Jose Rosario MD [address] [place] [address] documented as of this encounter [...] documented as of this encounter Care Teams Auto Repair Technician Relationship Specialty Start Date End Date Cosme Davis MD [address] [place] [address] PCP - General 06/24/20 documented as of this encounter
--- OUTSIDE RECORDS SUMMARY | 2025-01-08 06:49 | XMS_ITS | Clinical Summary ---
Author Organization [facility] Address [address] [place] [address] Phone Care Team Providers Care Dairy Quality Assurance Officer Name Role Phone Kar RAJPUT, Willa Molina Unavailable Conditions or Problems Problem Name Problem Code Onset Date Status Entry Date Provider Comment Standard Description Annotate Other obesity due to excess calories 993493924 (SNOMED CT) 06/03 Active 06/03 Sharona Annamaria Simple obesity Nicotine dependence 03663322 (SNOMED CT) 06/03 Active 06/03 Sharona Yin Nicotine dependence Coronary artery disease, S/P CABG 29318333 (SNOMED CT) 04/11 Active 04/11 Elvira Beth Coronary arteriosclerosis ARF due to infection 899702841 (SNOMED CT) 04/11 Active 04/11 Elvira Beth Acute renal failure due to ischemia Heart valve prosthesis, infection/inf lammatory reaction, subsequent encounter T82.6xxD (ICD-10-CM ) 04/11 Active 04/11 Elvira Beth 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, subsequent encounter Acute and subacute bacterial endocarditis 447671325 (SNOMED CT) 04/11 Active 04/11 Elvira Beth Acute and subacute bacterial endocarditis Group B strep sepsis A40.1 (ICD-10-CM ) 04/11 Active 04/11 Elvira Beth Sepsis due to streptococcus, group B DM Type II 42519623 (SNOMED CT) 04/11 Active 04/11 Elvira Beth Type 2 diabetes mellitus Hypoalbuminem ia 510074264 (SNOMED CT) 04/11 Active 04/11 Elvira Beth Hypoalbuminemia Medications Medication Instructions Start Date Stop Date Generic Name NDC Provider CEFTRIAXONE SODIUM 2 GM SOLR 2gm IV Q12hrs/ [facility] [phone] Plan to start at [facility] 04/18/18 to do 2xper day infusion. CEFTRIAXONE SODIUM 88099965218 Frida Morales PENICILLIN V POTASSIUM 250 MG TABS 1 by mouth twice a day for life PENICILLIN V POTASSIUM 60989526423 Gama Diaz MD PENICILLIN V POTASSIUM 250 MG/5ML SOLR 1 by mouth twice a day 30 days PENICILLIN V POTASSIUM 88533048961 Edie Hooks RN PENICILLIN V POTASSIUM 250 MG TABS 1 by mouth twice a day 30 days PENICILLIN V POTASSIUM 46352927306 Edie Hooks RN PENICILLIN V POTASSIUM 250 MG/5ML SOLR 1 by mouth twice a day 30 days PENICILLIN V POTASSIUM 57070357125 Gama Diaz MD PENICILLIN V POTASSIUM 250 MG TABS 1 by mouth twice a day 30 days PENICILLIN V POTASSIUM 30160848846 Gama Diaz MD CARDIZEM 120 MG TABS 1 tab once daily DILTIAZEM HCL 39094948009 Tahira Lucero VITAMIN D (CHOLECALCIFEROL ) 25 MCG (1000 UT) CAPS as instructed CHOLECALCIFEROL 05591564412 Tahira Lucero CEFTRIAXONE SODIUM 2 GM SOLR 2gm IV Q12hrs/ [facility] [phone] Plan to start at [facility] 04/18/18 to do 2xper day infusion. CEFTRIAXONE SODIUM 37622839156 Willa Lakhani RN PRAVASTATIN SODIUM 20 MG TABS Take one by mouth daily PRAVASTATIN SODIUM 52261164291 Garima Restrepo PLAVIX 75 MG TABS Take one by mouth daily CLOPIDOGREL BISULFATE 60192071408 Garima Restrepo NOVOLIN 70/30 (70-30) 100 UNIT/ML SUSP 20 units in AM, 10 units in PM INSULIN NPH ISOPHANE & REGULAR 57698090851 Garima Restrepo [facility] NICOTINE 21 MG/24HR PT24 1 patch daily NICOTINE 03889797324 Garima Floriandox LEVOTHYROXINE SODIUM 25 MCG TABS Take one by mouth daily LEVOTHYROXINE SODIUM 39287020099 Garima Floriandox HUMALOG 100 UNIT/ML SUBCUTANEOUS SOLUTION sliding scale INSULIN LISPRO 69665654296 Garima Floriandox GABAPENTIN 300 MG CAPS Take one by mouth daily GABAPENTIN 34210652083 Garima Floriandox FLORASTOR 250 MG CAPS Take one by mouth daily SACCHAROMYCES BOULARDII 77645398900 Garima Floriandox CELEXA 20 MG TABS Take one by mouth daily CITALOPRAM HYDROBROMIDE 88797968617 Garima Floriandox CARVEDILOL 3.125 MG TABS Take one by mouth daily CARVEDILOL 98629954519 Garima Lazarox ADULT ASPIRIN REGIMEN 81 MG ORAL TABLET DELAYED RELEASE Take one by mouth daily ASPIRIN 97309238544 Garima Lazarox AMBIEN 5 MG TABS Take/use as needed. ZOLPIDEM TARTRATE 95644749813 Garima Floriandox ALPRAZOLAM 0.5 MG TABS Take one by mouth 3 times daily, morning, afternoon and evening. ALPRAZOLAM 61114603706 Garima Floriandox CEFTRIAXONE SODIUM 2 GM SOLR 2gm IV Q24hrs/ [place] [phone] CEFTRIAXONE SODIUM 09174689765 Edie Hooks RN Medications Administered No information [...] [Ratio] by Automated count Lab Report: COMPREHENSIVE NV TABOLIC PANEL GFRC 47 mL/min/1 .73m2 >60 L Glomerular Filtration Rate Calculation Office Visit: Room 3 MEDS REVIEW Done Documenta tion of current medications (procedure) DIET LEAD CUSTODIAN yes Dietary management education, guidance, and counseling (procedure) ORALTOBACUSE Never Tobacco smoking status SMOK STATUS Current every day smoker Tobacco smoking status Lab Report: COMPREHENSIVE NV TABOLIC PANEL, MISCELLANEOUS REFERRAL, SED R ... [...] reactive protein [Mass/volume] in Serum or Plasma [employer]-Heroic-unk C-REACTIVE PROTEIN N GE use only - [...] Date CPT-[place]oor[facility] Continue oral antibiotics 20 02/03/14 CPT-97724 CMP [id number] CBC with Differential 2019 CPT-14969 C- reactive protein CPT-sl STAT Labs CPT-14862 [facility] [id number] CBC with Differential 2018 CPT-74630 C- reactive protein CPT-Cooral Continue oral antibiotics 20 30/08/23 CPT-60584 CMP [id number] CBC with Differential 2018 CPT-76347 C- reactive protein CPT-Cooral Continue oral antibiotics 20 31/05/23 CPT-PICREM PICC Removal CPT-DC Discontinue IV antibiotics 2 CPT-jodi New Oral Antibiotic CPT-ca Continue IV antibiotics 2018 CPT-51480 CMP [id number] CBC with Differential 2018 CPT-89108 C- reactive protein Vital Signs Date Name [...]
--- OUTSIDE RECORDS SUMMARY | 2025-01-08 06:49 | XMS_ITS | Encounter Summary ---
Author Organization [employer] ([place], [place], [place], [place], [place]) Address [address] [place] [address] Care Team Providers Care News Intern Name Role Phone Unavailable Primary Care Provider Unavailabl e Encounter Details Date Type Department Care Team (Late st Contact Info) Description 03/28/2018 Transcribed Document [facility] [place] Family Medicine [address] [place] [address] ProviderZion MD [address] [place], [place] [id number] Social History Tobacco Use Types Packs/Day Years Used Date Smoking Tobacco: Never Assessed Comments Unknown Sex and Gender Information Value Date Recorded Sex Assigned at Not on file Legal Sex Female 4:39 PM CDT Gender Identity Not on file Sexual Orientation Not on file documented as of this encounter Miscellaneous Notes * Cerner Conversion Note - Zion ProviderMD - 03/28/2018 6:04 PM FOREST ECONOMIST Patient: ETHAN LOREDO Age: 57 years Sex: [...] Rocephin: 2 Gram, 100 mL/Hr, IV Piggyback, [id number] Tylenol: 650 mg, Oral, Q4H, PRN: Other [...] Oral, Daily cefTRIAXone 2 Gram, IV Piggyback, [id number] citalopram 20 mg tab 20 mg 1 [...] tomorrow Electronically signed by Vinayak Azul Conversion Registered Nurse Cardiovascular Icu Cerner at 05/29/2022 8:41 PM CDT documented in this encounter Plan of Treatment Not on file documented as of this encounter Visit Diagnoses Not on filedocumented in this encounter
--- OUTSIDE RECORDS SUMMARY | 2025-01-08 06:49 | XMS_ITS | Encounter Summary ---
Author Organization [employer] ([place], [place], [place], [place], [place]) Address [address] [place] [address] Care Team Providers Care Plug Paster Name Role Phone Unavailable Primary Care Provider Unavailabl e Encounter Details Date Type Department Care Team (Late st Contact Info) Description 03/28/2018 Transcribed Document [facility] [place] [facility] [place] [address] ProviderZion MD [address] [place] [id number] Social History Tobacco Use Types Packs/Day Years Used Date Smoking Tobacco: Never Assessed Comments Unknown Sex and Gender Information Value Date Recorded Sex Assigned at Not on file Legal Sex Female 4:39 PM CDT Gender Identity Not on file Sexual Orientation Not on file documented as of this encounter Miscellaneous Notes * Cerner Conversion Note - Zion ProviderMD - 03/28/2018 12:56 PM PACKAGER HEAD Patient: ETHAN CRONIN Age: 57 years Sex: Female : 1960 Associated Diagnoses: None Author: CARROLL HIGH MD-INF Basic Information CC: Sepsis bacteremia 03/19/18 4/4 bottles for Group b strep ([facility]), mitral prosthetic valve endocarditis History of Present Illness 57-year-old white female with history of bladder cancer, atrial flutter, pacemaker placement 2016, hypertension, DM2, COPD, pancreatitis, who recently had blood cultures obtained at [facility] on 03/19/18 for fever which were positive in 4 out of 4 bottles for group B Streptococcus. Patient was to start IV antibiotics but was found to have bradycardia and was admitted to [facility] on 03/23/17. I was consulted on 03/25/17. The patient had been started on vancomycin and Rocephin. Urine culture obtained at [facility] was positive for multiple bacteria consistent [...] cefTRIAXone (Rocephin) - 2 Gram, IV Piggyback, [id number], infuse over 30 Minute(s), Routine Anticoagulant heparin [...] Normal strength, No tenderness. Integumentary: Warm, Dry, [place], No pallor, No rash, Left chest [...] 23) Troponin <0.015 (MAR 23) , ACC: [id number] ORDER: Culture Blood DATE: 03/23/2018 17:49 SOURCE: Blood SITE: Reports Pre 03/27/2018 23:01 No growth at 4 days. Pre 03/26/2018 23:01 No growth at 3 days. Pre 03/25/2018 23:01 No growth at 2 days. Pre 03/24/2018 23:02 No growth at 1 day. Pre 03/24/2018 16:03 Culture less than 24 Hrs old == ACC: [id number] ORDER: Culture Blood DATE: 03/23/2018 17:49 SOURCE: [...] culture bottles positive at [facility] (spoke to Maurice Spencer, at [facility] [...] Dr. Perez's service, cardiology, and Dr. Alan.. account manager trainee: Please arrange for outpatient IV antibiotics with Rocephin 2 g IV every 12 hours until 05/04/18. Follow CBC, CMP, CRP weekly while on IV antibiotics. Fax orders to [phone], and call [phone] with final arrangements. Arrange for follow-up with me in 2 weeks post discharge. Electronically signed by Vinayak Azul Conversion Heating And Ventilation Engineer Bartolomener at 05/29/2022 8:48 PM CDT documented in this encounter Plan of Treatment Not on file documented as of this encounter Visit Diagnoses Not on filedocumented in this encounter
--- OUTSIDE RECORDS SUMMARY | 2025-01-08 06:49 | XMS_ITS | Encounter Summary ---
Author Organization [employer] ([place], [place], [place], [place], [place]) Address [address] [place] [address] Care Team Providers Care Shoe Associate Name Role Phone Unavailable Primary Care Provider Unavailabl e Encounter Details Date Type Department Care Team (Late st Contact Info) Description 03/29/2018 Transcribed Document [facility] [place] Family Medicine [address] [place] [address] ProviderZion MD [address] [place], [place] [id number] Social History Tobacco Use Types Packs/Day Years Used Date Smoking Tobacco: Never Assessed Comments Unknown Sex and Gender Information Value Date Recorded Sex Assigned at Not on file Legal Sex Female 4:39 PM CDT Gender Identity Not on file Sexual Orientation Not on file documented as of this encounter Miscellaneous Notes * Cerner Conversion Note - Historical ProviderMD - 03/29/2018 1:22 PM TOOL CHECKER Discharge Instructions Entered On: 03/29/2018 13:23 EST Performed On: 03/29/2018 13:22 EST by Odalys Bush Rn-Vac Press Operator DC Instructions HWD Discharge Summary Sent to : Joshua [phone] Special Instructions : Report: Joshua [phone] Odalys Bush Rn-Vac Press Operator - 03/29/2018 13:22 EST Electronically signed by Jorge Alberto [facility] Conversion Manager Retirement Cerner at 05/29/2022 8:39 PM CDT documented in this encounter Plan of Treatment Not on file documented as of this encounter Visit Diagnoses Not on filedocumented in this encounter
--- OUTSIDE RECORDS SUMMARY | 2025-01-08 06:50 | XMS_ITS | Encounter Summary ---
Author Organization [employer] ([place], [place], [place], [place], [place]) Address [address] [place] [address] Care Team Providers Care Embedded Software Developer Name Role Phone Unavailable Primary Care Provider Unavailabl e Encounter Details Date Type Department Care Team (Late st Contact Info) Description 03/27/2018 Transcribed Document [facility] [place] [address] [place] [address] ProviderZion MD [address] [place] [address] Social History Tobacco Use Types [...] - Historical ProviderMD - 03/27/2018 2:00 AM HOTEL CASINO FLOORPERSON Practice Managers Details Entered On: 03/27/2018 5:00 EST Performed [...]
--- OUTSIDE RECORDS SUMMARY | 2025-01-08 06:50 | XMS_ITS | Encounter Summary ---
Author Organization [employer] ([place], [place], [place], [place], [place]) Address [address] [place] [address] Care Team Providers Care Nut Sorter Operator Name Role Phone Unavailable Primary Care Provider Unavailabl e Encounter Details Date Type Department Care Team (Late st Contact Info) Description 03/27/2018 Transcribed Document [facility] [place] [facility] [address] ProviderZion MD [address] [place] [address] Social History Tobacco Use Types [...] - Historical ProviderMD - 03/27/2018 4:23 PM TRAVELING REPRESENTATIVE Care Management Assessment/Plan Entered On: 03/27/2018 16:25 EST Performed On: 03/27/2018 16:23 EST by Stew Porras RN Care Management Note Anticipated Discharge Date : 04/03/2018 14:00 EST Care Management Note : blayne from [facility] ( ex [phone]) called to make bed offer. bed offers will be presented to pt 03/28. dtr [place] [phone] Care Management Note Report : Stew Porras [...] - 03/27/2018 16:23 EST Electronically signed by [facility], [facility] Conversion Research Compliance Specialist Cerner at 05/29/2022 8:47 PM CDT documented in this encounter Plan of Treatment Not on file documented as of this encounter Visit Diagnoses Not on filedocumented in this encounter
--- OUTSIDE RECORDS SUMMARY | 2025-01-08 06:50 | XMS_ITS | Encounter Summary ---
Author Organization [employer] ([employer] ([place], [place], [place], [place], [place]) Address [address] [place] [address] Care Team Providers Care Emergency Communications Operator Name Role Phone Unavailable Primary Care Provider Unavailabl e Encounter Details Date Type Department Care Team (Late st Contact Info) Description 03/27/2018 Transcribed Document [facility] [place] Family Medicine [address] [place] [address] ProviderZion MD [address] [place], [place] [phone] Social History Tobacco Use Types Packs/Day Years Used Date Smoking Tobacco: Never Assessed Comments Unknown Sex and Gender Information Value Date Recorded Sex Assigned at Not on file Legal Sex Female 4:39 PM CDT Gender Identity Not on file Sexual Orientation Not on file documented as of this encounter Miscellaneous Notes * Cerner Conversion Note - Historical ProviderMD - 03/27/2018 8:16 AM DOG LICENSER Consult Phone Call Documentation Entered On: 03/27/2018 [...]
--- OUTSIDE RECORDS SUMMARY | 2025-01-08 06:50 | XMS_ITS | Encounter Summary ---
Author Organization [employer] ([place], [place], [place], [place], [place]) Address [address] [place] [id number] Care Team Providers Care Credit Collections Rep Name Role Phone Unavailable Primary Care Provider Unavailabl e Encounter Details Date Type Department Care Team (Late st Contact Info) Description 03/27/2018 Transcribed Document [facility] [place] [address] [place] [address] ProviderZion MD [address] [place] [phone] Social History Tobacco Use Types Packs/Day Years Used Date Smoking Tobacco: Never Assessed Comments Unknown Sex and Gender Information Value Date Recorded Sex Assigned at Not on file Legal Sex Female 4:39 PM CDT Gender Identity Not on file Sexual Orientation Not on file documented as of this encounter Miscellaneous Notes * Cerner Conversion Note - Zion ProviderMD - 03/27/2018 9:26 AM JACQUARD LOOM WEAVER Patient: ETHAN CRONIN Age: 57 years Sex: Female : 1960 Associated Diagnoses: None Author: AJAY MARCANO MD-CAR Basic Information PCP: Unknown Resizer Operator: Chief Complaint Vegetation on prosthetic mitral valve [...] Oral, Daily cefTRIAXone 2 Gram, IV Piggyback, [id number] citalopram 20 mg tab 20 mg 1 [...] Bedtime Problem list: All Problems Anxiety / 32251688 / Confirmed Atrial flutter / 4204741 / Confirmed COPD (chronic obstructive pulmonary disease) / 81616300 / Confirmed Depression / 13175091 / Confirmed Diabetes / 388039298 / Confirmed Hyperlipidemia / 90882973 / Confirmed Hypertension / 2756838578 / Confirmed Bladder cancer / 3410878382 / Confirmed Pancreatitis / 207005173 / Confirmed Tobacco abuse / 839899864 / Confirmed Histories No education data available. Social & Psychosocial Habits Tobacco 02/17/2015 Tobacco Use Within Last Twelve Months Cigarettes Smoking Status Current every day smoker Years of Tobacco Use 40 Packs/Tins Daily 1 Smoking Cessation Information Provided Yes Past Medical History: Active CAD - Coronary artery disease (9395058350) Cardiomyopathy (643535327) HLD - Hyperlipidemia (178730060) HTN - Hypertension (1685017462) Resolved COPD - Chronic obstructive pulmonary disease (921799669): Resolved. Family History: No family history items have been selected or recorded. Procedure history: CABG in 2016 at 55 Years. MAZE in 2016 at 55 Years. Cholecystectomy; (99154). Comments: 02/17/2015 11:52 - SUSI BOWMAN RN [...] of motion, Normal strength. Integumentary: Warm, Dry, [place]. Neurologic: Alert, Oriented. Psychiatric: Cooperative, Appropriate mood & affect. Review / Management MAR 27 07:36 136 104 H 33 / H 137 4.0 L 20 0.90 \ Cardiac Markers (Current Encounter/Past 24 Hours) No Cardiac Marker Results Found (Past 24 Hours) Blood Gases (Current Encounter/Past 24 Hours) No Blood Gas Results Found (Past 24 Hours) Radiology Results (Last 48 hours) [id number] -- 03/23/2018 17:08 CT Abdomen Pelvis WO [...]
--- OUTSIDE RECORDS SUMMARY | 2025-01-08 06:50 | XMS_ITS | Encounter Summary ---
Author Organization [employer] ([place], [place], [place], [place], [place]) Address [address] [place] [address] Care Team Providers Care Central Supply Tech Name Role Phone Unavailable Primary Care Provider Unavailabl e Encounter Details Date Type Department Care Team (Late st Contact Info) Description 03/27/2018 Transcribed Document [facility] [place] Family Medicine [facility] [place] [address] ProviderZion MD [address] [place] [id number] Social History Tobacco Use Types Packs/Day Years Used Date Smoking Tobacco: Never Assessed Comments Unknown Sex and Gender Information Value Date Recorded Sex Assigned at Not on file Legal Sex Female 4:39 PM CDT Gender Identity Not on file Sexual Orientation Not on file documented as of this encounter Miscellaneous Notes * Cerner Conversion Note - Zion Alonso MD - 03/27/2018 9:17 AM DOCUMENTATION COORDINATOR Patient: ETHAN CRONIN Age: 57 years Sex: Female : 1960 Associated Diagnoses: None Author: CARROLL HIGH MD-INF Basic Information CC: Sepsis bacteremia 03/19/18 4/4 bottles for Group b strep ([facility]), mitral prosthetic valve endocarditis History of Present Illness 57-year-old white female with history of bladder cancer, atrial flutter, pacemaker placement 2016, hypertension, DM2, COPD, pancreatitis, who recently had blood cultures obtained at [facility] on 03/19/18 for fever which were positive in 4 out of 4 bottles for group B Streptococcus. Patient was to start IV antibiotics but was found to have bradycardia and was admitted to on 03/23/17. I was consulted on 03/25/17. The patient had been started on vancomycin and Rocephin. Urine culture obtained at [facility] was positive for multiple bacteria consistent [...] cefTRIAXone (Rocephin) - 2 Gram, IV Piggyback, [id number], infuse over 30 Minute(s), Routine Anticoagulant heparin [...] Normal strength, No tenderness. Integumentary: Warm, Dry, [place], No pallor, No rash, Left chest wall [...] 10) Troponin <0.015 (FEB 10) , ACC: [id number] ORDER: Culture Blood DATE: 03/23/2018 17:49 SOURCE: Blood SITE: Reports Pre 03/26/2018 23:01 No growth at 3 days. Pre 03/25/2018 23:01 No growth at 2 days. Pre 03/24/2018 23:02 No growth at 1 day. Pre 03/24/2018 16:03 Culture less than 24 Hrs old == ACC: [id number] ORDER: Culture Blood DATE: 03/23/2018 17:49 SOURCE: [...] of 4 blood culture bottles positive at [facility] (spoke to Maurice Spencer, at [facility]). BROCK consistent with mitral valve endocarditis, prosthetic. [...] and discussed with Dr. Perez's service, cardiology. project safety manager: Please arrange for outpatient IV antibiotics with Rocephin 2 g IV every 12 hours until 05/04/18. Follow CBC, CMP, CRP weekly while on IV antibiotics. Fax orders to [phone], and call [phone] with final arrangements. Arrange for follow-up with me in 2 weeks post discharge. documented in this encounter Plan of Treatment Not on file documented as of this encounter Visit Diagnoses Not on filedocumented in this encounter
--- OUTSIDE RECORDS SUMMARY | 2025-01-08 06:50 | XMS_ITS | Encounter Summary ---
Author Organization [employer] ([place], [place], [place], [place], [place]) Address [address] [place] [address] Care Team Providers Care Telegraph Repeater Mechanic Name Role Phone Unavailable Primary Care Provider Unavailabl e Encounter Details Date Type Department Care Team (Late st Contact Info) Description 03/27/2018 Transcribed Document [facility] [place] [address] [place] [address] ProviderZion MD [address] [place] [address] Social History Tobacco Use Types [...] - Historical ProviderMD - 03/27/2018 5:00 AM AMORTIZATION SCHEDULE CLERK Chart Check - Review Order Profile Entered [...]
--- OUTSIDE RECORDS SUMMARY | 2025-01-08 06:50 | XMS_ITS | Data Portability ---
Author Organization [facility] Address [address] [place] [address] Assessment Encounter Date Assessment Date Assessment LastModified [...] recorded. Lab drug screen, urine 2024 025 [facility], [address] [facility], [place], [address], 5 18:12:43 TSH + free T4, serum 2024 025 [facility], [address], [place], [place], [address], 5 14:15:06 cobalamin and folate panel, serum 2024 025 [facility], [address], [place], [place], [address], 5 14:15:09 CBC w/ auto diff 2024 025 [facility], [address], [place], [place], [address], 5 09:56:34 CMP, serum or plasma 2024 025 [facility], [address], [place], [place], [address], 5 14:15:07 HbA1c (hemoglobin A1c), blood 2024 025 [facility], [address], [place], [place], [address], 5 14:15:09 lipid panel, serum 2024 025 [facility], [address], [place], [place], [address], 5 14:15:08 TSH + free T4, serum 2024 025 [facility], [address], [place], [place], [address], 5 17:07:34 CMP, serum or plasma 2024 025 [facility], [address], [place], [place], [address], 5 17:07:35 CBC w/ auto diff 2024 025 [facility], [address], [place], [place], [address], 5 17:07:34 BNP (B-type natriuretic peptide), serum or plasma 2024 025 [facility], [address], [place], [place], [address], 5 17:07:36 Referral wound care referral - nurse to start wound care on stage 1 to buttocks-pt is already in care with home health 2024 025 [facility], [address] [place] [address], [address], 08:26:07 Procedures None recorded. Surgeries None recorded. Imaging XR, chest, 2 view 2024 025 [facility] ([facility]), [address], [place], [address], 5 14:20:52 Medication Orders Miralax 17 gram/dose oral powder 2024 025 [facility], [address] [place] [address] 27 [address], [place], [id number], 5 17:15:19 alprazolam 0.5 mg tablet 2024 025 [facility], [address] [place] [address] S, [place], [id number], 5 12:00:52 fluconazole 100 mg tablet 2024 025 [facility], [address] [place] [address], [address], 5 05:01:51 nystatin 100,000 unit/gram topical powder 2024 025 [facility], [address] [place] [address], [address], 5 14:43:23 alprazolam 0.5 mg tablet 2024 025 [facility], [address] [place] [address] 27 S, [place], [id number], 5 14:43:24 penicillin V potassium 250 mg tablet 2024 025 [facility], [address] [place] [address] 27 S, [place], [id number], 14:14:33 Patient TargetsNo targets recorded. Patient Instructions Encounter Date Encounter Id Patient Instructions Last Modified By Organization Details Last Modified Time 08/11/2024 [id number] body mass index: care instructions rebel Not [...] Order ing Provi oscar: Elisha Beckham n [employer] Not Available [address] , [place], [address], 03/27/2024 17:28:40 03/27/19 25 03/27/2024 CBC W/AUT O DIFFE RENTI AL white blood cell 8.3 10e3/ uL 4.5-13 .0 normal Not Available [address] [place], [place], [address], 03/27/2024 17:28:40 03/27/19 25 03/27/2024 CBC W/AUT O DIFFE RENTI AL red blood cell 3.06 10e6/ uL 3.80-5 .10 low Not Available [place] [address], [place], [address], 03/27/2024 17:28:40 03/27/19 25 03/27/2024 CBC W/AUT O DIFFE RENTI AL hemoglobin 9.0 g/dL 11.5-1 5.3 low Not Available [address] , [place], [address], 03/27/2024 17:28:40 03/27/19 25 03/27/2024 CBC W/AUT O DIFFE RENTI AL hematocrit 29.5 % 34.0-4 6.0 low Not Available [address] [place], [place], [address], 03/27/2024 17:28:40 03/27/19 25 03/27/2024 CBC W/AUT O DIFFE RENTI AL mean cell volume 96 fL 78.0-9 8.0 normal Not Available [address] [place], [place], [address], 03/27/2024 17:28:40 03/27/19 25 03/27/2024 CBC W/AUT O DIFFE RENTI AL mean cell HGB 29.4 pg 25.0-3 5.0 normal Not Available [address] , [place], [address], 03/27/2024 17:28:40 03/27/19 25 03/27/2024 CBC W/AUT O DIFFE RENTI AL mean cell HGB concentratio n 30.5 g/dL 31.0-3 6.0 low Not Available [address] [place], [place], [address], 03/27/2024 17:28:40 03/27/19 25 03/27/2024 CBC W/AUT O DIFFE RENTI AL red cell distribution width 18.6 % 11.0-1 5.0 high Not Available [address] [place], [place], [address], 03/27/2024 17:28:40 03/27/19 25 03/27/2024 CBC W/AUT O DIFFE RENTI AL platelet count 316 10e3/ uL 150-40 0 normal Not Available [address] [place], [place], [address], 03/27/2024 17:28:40 03/27/19 25 03/27/2024 CBC W/AUT O DIFFE RENTI AL immature granulocyte % 2 0-1 high Not Available [address] , [place], [address], 03/27/2024 17:28:40 03/27/19 25 03/27/2024 CBC W/AUT O DIFFE RENTI AL neutrophil % 71 % 35-75 normal Not Available [address] , [place], [address], 03/27/2024 17:28:40 03/27/19 25 03/27/2024 CBC W/AUT O DIFFE RENTI AL lymphocyte % 19 % 10-50 normal Not Available [address] , [place], [address], 03/27/2024 17:28:40 03/27/19 25 03/27/2024 CBC W/AUT O DIFFE RENTI AL monocyte % 5 % 0-15 normal Not Available [address] , [place], [address], 03/27/2024 17:28:40 03/27/19 25 03/27/2024 CBC W/AUT O DIFFE RENTI AL eosinophil % 2 % 0-5 normal Not Available [address] , [place], [address], 03/27/2024 17:28:40 03/27/19 25 03/27/2024 CBC W/AUT O DIFFE RENTI AL basophil % 1 % 0-5 normal Not Available [address] [place], [place], [address], 03/27/2024 17:28:40 03/27/19 25 03/27/2024 CBC W/AUT O DIFFE RENTI AL immature granulocyte # 0.13 x1000 /uL 0-0.05 high Not Available [address] [place], [place], [address], 03/27/2024 17:28:40 03/27/19 25 03/27/2024 CBC W/AUT O DIFFE RENTI AL neutrophil # 5.92 x1000 /uL 1.50-8 .00 normal Not Available [address] [place], [place], [address], 03/27/2024 17:28:40 03/27/19 25 03/27/2024 CBC W/AUT O DIFFE RENTI AL lymphocyte # 1.55 x1000 /uL 1.20-5 .20 normal Not Available [address] [place], [place], [address], 03/27/2024 17:28:40 03/27/19 25 03/27/2024 CBC W/AUT O DIFFE RENTI AL monocyte # 0.45 x1000 /uL 0.40-0 .90 normal Not Available [address] [place], [place], [address], 03/27/2024 17:28:40 03/27/19 25 03/27/2024 CBC W/AUT O DIFFE RENTI AL eosinophil # 0.18 x1000 /uL 0.00-0 .50 normal Not Available [address] [place], [place], [address], 03/27/2024 17:28:40 03/27/19 25 03/27/2024 CBC W/AUT O DIFFE RENTI AL basophil # 0.07 x1000 /uL 0.00-0 .30 normal Not Available [address] [place], [place], [address], 03/27/2024 17:28:40 03/27/19 25 03/27/2024 CBC W/AUT O DIFFE RENTI AL NRBC automated 0.0 /100_ WBC Not Available [address] [place], [place], [address], 03/27/2024 17:28:40 03/27/19 25 03/27/2024 CBC W/AUT O DIFFE KEELEY AL performing lab see note - [address] [facility] [address] Not Available [address] , [place], [address], 03/27/2024 17:28:40 03/27/19 25 03/27/2024 COMP METAB OLIC PANEL note See Note Order ing Provi oscar: Eugon da Fryma n [employer] Not Available [address] , [place], [address], 03/27/2024 17:32:51 03/27/19 25 03/27/2024 COMP METAB OLIC PANEL sodium 137 mmol/ L 136-14 5 normal Not Available [address] , [place], [address], 03/27/2024 17:32:51 03/27/19 25 03/27/2024 COMP METAB OLIC PANEL potassium 5.0 mmol/ L 3.5-5. 1 normal Not Available [address] , [place], [address], 03/27/2024 17:32:51 03/27/19 25 03/27/2024 COMP METAB OLIC PANEL chloride 103 mmol/ L 98-107 normal Not Available [address] , [place], [address], 03/27/2024 17:32:51 03/27/19 25 03/27/2024 COMP METAB OLIC PANEL carbon dioxide 24 mmol/ L 24-33 normal Not Available [address] [place], [address], 03/27/2024 17:32:51 03/27/19 25 03/27/2024 COMP METAB OLIC PANEL anion gap 15.0 mmol/ L 10-20 normal Not Available [address] , [place], [address], 03/27/2024 17:32:51 03/27/19 25 03/27/2024 COMP METAB OLIC PANEL glucose 148 mg/dL 70-99 high Not Available [address] [place], [address], 03/27/2024 17:32:51 03/27/19 25 03/27/2024 COMP METAB OLIC PANEL blood urea nitrogen 61 mg/dL 7-18 high Not Available [address] [place], [address], 03/27/2024 17:32:51 03/27/19 25 03/27/2024 COMP METAB OLIC PANEL creatinine 2.72 mg/dL 0.55-1 .02 high Not Available [address] , [place], [address], 03/27/2024 17:32:51 03/27/19 25 03/27/2024 COMP METAB [...] care of your patie nt. Not Available [address] , [place], [address], 03/27/2024 17:32:51 03/27/19 25 03/27/2024 COMP METAB OLIC PANEL BUN/creatini ne ratio 22 12-20 high Not Available [address] [place], [place], [address], 03/27/2024 17:32:51 03/27/19 25 03/27/2024 COMP METAB OLIC PANEL total protein 6.8 g/dL 6.4-8. 2 normal Not Available [address] [place], [place], [address], 03/27/2024 17:32:51 03/27/19 25 03/27/2024 COMP METAB OLIC PANEL albumin 3.3 g/dL 3.4-5. 0 low Not Available [address], [address], 03/27/2024 17:32:51 03/27/19 25 03/27/2024 COMP METAB OLIC PANEL globulin 3.5 g/dL 1.5-4. 0 normal Not Available [address] [place], [address], 03/27/2024 17:32:51 03/27/19 25 03/27/2024 COMP METAB OLIC PANEL albumin/glob ulin ratio 0.9 0.5-2. 0 normal Not Available [address] [place], [address], 03/27/2024 17:32:51 03/27/19 25 03/27/2024 COMP METAB OLIC PANEL calcium 9.2 mg/dL 8.5-10 .1 normal Not Available [address] [place], [address], 03/27/2024 17:32:51 03/27/19 25 03/27/2024 COMP METAB OLIC PANEL osmolality serum calculated 293 mOsm/ kg 272-28 8 high Not Available [address] [place], [address], 03/27/2024 17:32:51 03/27/19 25 03/27/2024 COMP METAB OLIC PANEL bilirubin total 0.4 mg/dL 0.2-1. 0 normal Use of this assay is not recom godwin d for patie nts under going treat ment with Eltro mbopa g due to the poten tial for false ly eleva anthony resul ts. Not Available [address], [address], 03/27/2024 17:32:51 03/27/19 25 03/27/2024 COMP METAB OLIC PANEL SGOT/AST 14 U/L 15-37 low Not Available [address] [place], [address], 03/27/2024 17:32:51 03/27/19 25 03/27/2024 COMP METAB OLIC PANEL SGPT/ALT 15 U/L 14-59 normal Not Available [address], [place], [address], 03/27/2024 17:32:51 03/27/19 25 03/27/2024 COMP METAB OLIC PANEL alkaline phosphatase total 93 U/L 46-116 normal Not Available [address] , [place], [address], 03/27/2024 17:32:51 03/27/19 25 03/27/2024 COMP METAB OLIC PANEL performing lab see note [facility] [address] [facility] [address] Not Available [address] , [place], [address], 03/27/2024 17:32:51 03/27/19 25 03/27/2024 MAGNE SIUM note See Note Order ing Provi oscar: Elisha Santosa n [employer] IN[employer]ATION MECH[employer]IC Not Available [address] [place], [place], [address], 03/27/2024 17:32:52 03/27/19 25 03/27/2024 MAGNE SIUM magnesium 2.3 mg/dL 1.8-2. 4 normal Not Available [address] , [place], [address], 03/27/2024 17:32:52 03/27/19 25 03/27/2024 MAGNE SIUM performing lab see note ML - [facility] [address] [facility] [address] Not Available [address] , [place], [address], 03/27/2024 17:32:52 04/16/19 25 04/15/2024 TSH+F REE T4 TSH 12.100 uIU/m L 0.450- 4.500 above high normal Not Available [facility] ([facility]) [address] [facility], [place], [address], 04/15/2024 17:07:34 04/16/19 25 04/15/2024 TSH+F REE T4 T4,free(dire ct) 1.14 NG/dL 0.82-1 .77 normal Not Available [facility] ([facility]) [address] [place], [address], 04/15/2024 17:07:34 04/16/19 25 04/15/2024 CBC WITH DIFFE RENTI AL/PL ATELE T WBC 7.4 x10e3 /uL 3.4-10 .8 normal Not Available [facility] ([facility]) [address] [place], [address], 04/15/2024 17:07:34 04/16/19 25 04/15/2024 CBC WITH DIFFE RENTI AL/PL ATELE T RBC 3.02 x10e6 /uL 3.77-5 .28 below low normal Not Available [facility] ([facility]) [address] [place], [address], 04/15/2024 17:07:34 04/16/19 25 04/15/2024 CBC WITH DIFFE RENTI AL/PL ATELE T hemoglobin 8.6 g/dL 11.1-1 5.9 below low normal Not Available [facility] ([facility]) [address] [place], [address], 04/15/2024 17:07:34 04/16/19 25 04/15/2024 CBC WITH DIFFE RENTI AL/PL ATELE T hematocrit 28.6 % 34.0-4 6.6 below low normal Not Available [facility] ([facility]) [address] [place], [address], 04/15/2024 17:07:34 04/16/19 25 04/15/2024 CBC WITH DIFFE RENTI AL/PL ATELE T MCV 95 fL 79-97 normal Not Available [facility] ([facility]) [address] [facility], [place], [address], 04/15/2024 17:07:34 04/16/19 25 04/15/2024 CBC WITH DIFFE RENTI AL/PL ATELE T MCH 28.5 pg 26.6-3 3.0 normal Not Available [facility] ([facility]) [address] [facility], [place], [address], 04/15/2024 17:07:34 04/16/19 25 04/15/2024 CBC WITH DIFFE RENTI AL/PL ATELE T MCHC 30.1 g/dL 31.5-3 5.7 below low normal Not Available [facility] ([facility]) [address] [facility], [place], [address], 04/15/2024 17:07:34 04/16/19 25 04/15/2024 CBC WITH DIFFE RENTI AL/PL ATELE T RDW 16.1 % 11.7-1 5.4 above high normal Not Available [facility] ([facility]) [address] [facility], [place], [address], 04/15/2024 17:07:34 04/16/19 25 04/15/2024 CBC WITH DIFFE RENTI AL/PL ATELE T platelets 248 x10e3 /uL 150-45 0 normal Not Available [facility] ([facility]) [address] [place], [address], 04/15/2024 17:07:34 04/16/19 25 04/15/2024 CBC WITH DIFFE RENTI AL/PL ATELE T neutrophils 72 % not estab. normal Not Available [facility] ([facility]) [address] [place], [address], 04/15/2024 17:07:34 04/16/19 25 04/15/2024 CBC WITH DIFFE RENTI AL/PL ATELE T lymphs 16 % not estab. normal Not Available [facility] ([facility]) [address] [place], [address], 04/15/2024 17:07:34 04/16/19 25 04/15/2024 CBC WITH DIFFE RENTI AL/PL ATELE T monocytes 7 % not estab. normal Not Available [facility] ([facility]) [address] [facility], [place], [address], 04/15/2024 17:07:34 04/16/19 25 04/15/2024 CBC WITH DIFFE RENTI AL/PL ATELE T eos 4 % not estab. normal Not Available [facility] ([facility]) [address] [facility], [place], [address], 04/15/2024 17:07:34 04/16/19 25 04/15/2024 CBC WITH DIFFE RENTI AL/PL ATELE T basos 1 % not estab. normal Not Available [facility] ([facility]) [address] [facility], [place], [address], 04/15/2024 17:07:34 04/16/19 25 04/15/2024 CBC WITH DIFFE RENTI AL/PL ATELE T immature cells [employer] Not Available [facility] ([facility]) [address] [place], [address], 04/15/2024 17:07:34 04/16/19 25 04/15/2024 CBC WITH DIFFE RENTI AL/PL ATELE T neutrophils (absolute) 5.4 x10e3 /uL 1.4-7. 0 normal Not Available [facility] ([facility]) [address] [place], [address], 04/15/2024 17:07:34 04/16/19 25 04/15/2024 CBC WITH DIFFE RENTI AL/PL ATELE T lymphs (absolute) 1.2 x10e3 /uL 0.7-3. 1 normal Not Available [facility] ([facility]) [address] [place], [address], 04/15/2024 17:07:34 04/16/19 25 04/15/2024 CBC WITH DIFFE RENTI AL/PL ATELE T monocytes(ab solute) 0.5 x10e3 /uL 0.1-0. 9 normal Not Available [facility] ([facility]) [address] [facility], [place], [address], 04/15/2024 17:07:34 04/16/19 25 04/15/2024 CBC WITH DIFFE RENTI AL/PL ATELE T eos (absolute) 0.3 x10e3 /uL 0.0-0. 4 normal Not Available [facility] ([facility]) [address] [facility], [place], [address], 04/15/2024 17:07:34 04/16/19 25 04/15/2024 CBC WITH DIFFE RENTI AL/PL ATELE T baso (absolute) 0.1 x10e3 /uL 0.0-0. 2 normal Not Available [facility] ([facility]) [address] [facility], [place], [address], 04/15/2024 17:07:34 04/16/19 25 04/15/2024 CBC WITH DIFFE RENTI AL/PL ATELE T immature granulocytes 0 % not estab. Not Available [facility] ([facility]) [address] [place], [address], 04/15/2024 17:07:34 04/16/19 25 04/15/2024 CBC WITH DIFFE RENTI AL/PL ATELE T immature grans (abs) 0.0 x10e3 /uL 0.0-0. 1 Not Available [facility] ([facility]) [address] [facility], [place], [address], 04/15/2024 17:07:34 04/16/19 25 04/15/2024 CBC WITH DIFFE RENTI AL/PL ATELE T NRBC [employer] Not Available [facility] ([facility]) [address] [facility], [place], [address], 04/15/2024 17:07:34 04/16/19 25 04/15/2024 CBC WITH DIFFE KEELEY AL/PARTHA Gomez hematology comments: [employer] Not Available [facility] ([facility]) [address] [facility], [place], [address], 04/15/2024 17:07:34 04/16/19 25 04/15/2024 COMP. METAB OLIC PANEL (14) glucose 111 mg/dL 70-99 above high normal Not Available [facility] ([facility]) [address] [facility] [place], [address], 04/15/2024 17:07:35 04/16/19 25 04/15/2024 COMP. METAB OLIC PANEL (14) BUN 41 mg/dL 8-27 above high normal Not Available [facility] ([facility]) [address] [facility], [place], [address], 04/15/2024 17:07:35 04/16/19 25 04/15/2024 COMP. METAB OLIC PANEL (14) creatinine 2.15 mg/dL 0.57-1 .00 above high normal Not Available [facility] ([facility]) [address] [facility], [place], [address], 04/15/2024 17:07:35 04/16/19 25 04/15/2024 COMP. METAB OLIC PANEL (14) eGFR 26 mL/mi n/1.7 3 >59 below low normal Not Available [facility] ([facility]) [address] [facility] [place], [address], 04/15/2024 17:07:35 04/16/19 25 04/15/2024 COMP. METAB OLIC PANEL (14) BUN/creatini ne ratio 19 12-28 normal Not Available [facility] ([facility]) [address] [facility] [place], [address], 04/15/2024 17:07:35 04/16/19 25 04/15/2024 COMP. METAB OLIC PANEL (14) sodium 140 mmol/ L 134-14 4 normal Not Available [facility] ([facility]) [address] [place], [address], 04/15/2024 17:07:35 04/16/19 25 04/15/2024 COMP. METAB OLIC PANEL (14) potassium 5.1 mmol/ L 3.5-5. 2 normal Not Available [facility] ([facility]) [address] [facility] [place], [address], 04/15/2024 17:07:35 04/16/19 25 04/15/2024 COMP. METAB OLIC PANEL (14) chloride 110 mmol/ L 96-106 above high normal Not Available [facility] ([facility]) [address] [place], [address], 04/15/2024 17:07:35 04/16/19 25 04/15/2024 COMP. METAB OLIC PANEL (14) carbon dioxide, total TNP mmol/ L Test not perfo rmed. Due to a lack of repro ducib ility with this patie nt sampl e, a valid resul t could not be obtai josé miguel. Not Available [facility] ([facility]) [address] [place], [address], 04/15/2024 17:07:35 04/16/19 25 04/15/2024 COMP. METAB OLIC PANEL (14) calcium 8.6 mg/dL 8.7-10 .3 below low normal Not Available [facility] ([facility]) [address] [place], [address], 04/15/2024 17:07:35 04/16/19 25 04/15/2024 COMP. METAB OLIC PANEL (14) protein, total 6.1 g/dL 6.0-8. 5 normal Not Available [facility] ([facility]) [address] [facility] [place], [address], 04/15/2024 17:07:35 04/16/19 25 04/15/2024 COMP. METAB OLIC PANEL (14) albumin 3.6 g/dL 3.9-4. 9 below low normal Not Available [facility] ([facility]) [address] [facility] [place], [address], 04/15/2024 17:07:35 04/16/19 25 04/15/2024 COMP. METAB OLIC PANEL (14) globulin, total 2.5 g/dL 1.5-4. 5 Not Available [facility] ([facility]) [address] [facility] [place], [address], 04/15/2024 17:07:35 04/16/19 25 04/15/2024 COMP. METAB OLIC PANEL (14) bilirubin, total 0.2 mg/dL 0.0-1. 2 normal Not Available [facility] ([facility]) [address] [facility] [place], [address], 04/15/2024 17:07:35 04/16/19 25 04/15/2024 COMP. METAB OLIC PANEL (14) alkaline phosphatase 148 IU/L 44-121 above high normal Not Available [facility] ([facility]) [address] [facility] [place], [address], 04/15/2024 17:07:35 04/16/19 25 04/15/2024 COMP. METAB OLIC PANEL (14) AST (SGOT) 27 IU/L 0-40 normal Not Available [facility] ([facility]) [address] [facility] [place], [address], 04/15/2024 17:07:35 04/16/19 25 04/15/2024 COMP. METAB OLIC PANEL (14) ALT (SGPT) 23 IU/L 0-32 normal Not Available [facility] ([facility]) [address] [facility] [place], [address], 04/15/2024 17:07:35 04/16/19 25 04/15/2024 B-TYP E NATRI URETI C PEPTI DE B-type natriuretic peptide 235.2 pg/mL 0.0-10 0.0 above high normal Sieme ns [facility] metho dolog y Not Available [facility] ([facility]) [address] [place], [address], 04/15/2024 17:07:36 04/16/1904/15/2024 PLEAS E NOTE please note Commen t The date and/o r time of colle ction was not indic ated on the requi sitio n as requi red by state and manuel al law. The date of recei pt of the speci men was used as the colle ction date if not suppl ied. Not Available [facility] ([facility]) [address] [place], [address], 04/15/2024 17:07:36 06/19/1906/19/2024 TSH+F REE T4 TSH 5.960 uIU/m L 0.450- 4.500 above high normal Not Available [facility] ([facility]) [address] [place], [address], 06/19/2024 14:15:06 06/19/1906/19/2024 TSH+F REE T4 T4,free(dire ct) 1.28 NG/dL 0.82-1 .77 normal Not Available [facility] ([facility]) [address] [place], [address], 06/19/2024 14:15:06 06/19/19 25 06/19/2024 CBC WITH DIFFE RENTI AL/PL ATELE T WBC 7.5 x10e3 /uL 3.4-10 .8 normal Not Available [facility] ([facility]) [address] [place], [address], 06/19/2024 14:15:07 06/19/19 25 06/19/2024 CBC WITH DIFFE RENTI AL/PL ATELE T RBC 2.98 x10e6 /uL 3.77-5 .28 below low normal Not Available [facility] ([facility]) [address] [place], [address], 06/19/2024 14:15:07 06/19/19 25 06/19/2024 CBC WITH DIFFE RENTI AL/PL ATELE T hemoglobin 7.3 g/dL 11.1-1 5.9 panic low Clien t Reque sted Flag Not Available [facility] ([facility]) [address] [place], [address], 06/19/2024 14:15:07 06/19/19 25 06/19/2024 CBC WITH DIFFE RENTI AL/PL ATELE T hematocrit 25.6 % 34.0-4 6.6 below low normal Not Available [facility] ([facility]) [address] [place], [address], 06/19/2024 14:15:07 06/19/19 25 06/19/2024 CBC WITH DIFFE RENTI AL/PL ATELE T MCV 86 fL 79-97 normal Not Available [facility] ([facility]) [address] [place], [address], 06/19/2024 14:15:07 06/19/19 25 06/19/2024 CBC WITH DIFFE RENTI AL/PL ATELE T MCH 24.5 pg 26.6-3 3.0 below low normal Not Available [facility] ([facility]) [address] [place], [address], 06/19/2024 14:15:07 06/19/19 25 06/19/2024 CBC WITH DIFFE RENTI AL/PL ATELE T MCHC 28.5 g/dL 31.5-3 5.7 below low normal Not Available [facility] ([facility]) [address] [place], [address], 06/19/2024 14:15:06/19/19 25 06/19/2024 CBC WITH DIFFE RENTI AL/PL ATELE T RDW 16.5 % 11.7-1 5.4 above high normal Not Available [facility] ([facility]) [address] [facility], [place], [address], 06/19/2024 14:15:06/19/19 25 06/19/2024 CBC WITH DIFFE RENTI AL/PL ATELE T platelets 332 x10e3 /uL 150-45 0 normal Not Available [facility] ([facility]) [address] [facility], [place], [address], 06/19/2024 14:15:07 06/19/19 25 06/19/2024 CBC WITH DIFFE RENTI AL/PL ATELE T neutrophils 70 % not estab. normal Not Available [facility] ([facility]) [address] [facility], [place], [address], 06/19/2024 14:15:06/19/19 25 06/19/2024 CBC WITH DIFFE RENTI AL/PL ATELE T lymphs 19 % not estab. normal Not Available [facility] ([facility]) [address] [facility], [place], [address], 06/19/2024 14:15:06/19/19 25 06/19/2024 CBC WITH DIFFE RENTI AL/PL ATELE T monocytes 6 % not estab. normal Not Available [facility] ([facility]) [address] [facility], [place], [address], 06/19/2024 14:15:06/19/19 25 06/19/2024 CBC WITH DIFFE RENTI AL/PL ATELE T eos 4 % not estab. normal Not Available [facility] ([facility]) [address] [place], [address], 06/19/2024 14:15:07 06/19/19 25 06/19/2024 CBC WITH DIFFE RENTI AL/PL ATELE T basos 1 % not estab. normal Not Available [facility] ([facility]) [address] [place], [address], 06/19/2024 14:15:07 06/19/19 25 06/19/2024 CBC WITH DIFFE RENTI AL/PL ATELE T immature cells [employer] Not Available [facility] ([facility]) [address] [place], [address], 06/19/2024 14:15:07 06/19/19 25 06/19/2024 CBC WITH DIFFE RENTI AL/PL ATELE T neutrophils (absolute) 5.3 x10e3 /uL 1.4-7. 0 normal Not Available [facility] ([facility]) [address] [place], [address], 06/19/2024 14:15:07 06/19/19 25 06/19/2024 CBC WITH DIFFE RENTI AL/PL ATELE T lymphs (absolute) 1.4 x10e3 /uL 0.7-3. 1 normal Not Available [facility] ([facility]) [address] [place], [address], 06/19/2024 14:15:07 06/19/19 25 06/19/2024 CBC WITH DIFFE RENTI AL/PL ATELE T monocytes(ab solute) 0.5 x10e3 /uL 0.1-0. 9 normal Not Available [facility] ([facility]) [address] [place], [address], 06/19/2024 14:15:07 06/19/19 25 06/19/2024 CBC WITH DIFFE RENTI AL/PL ATELE T eos (absolute) 0.3 x10e3 /uL 0.0-0. 4 normal Not Available [facility] ([facility]) [address] [place], [address], 06/19/2024 14:15:07 06/19/19 25 06/19/2024 CBC WITH DIFFE RENTI AL/PL ATELE T baso (absolute) 0.1 x10e3 /uL 0.0-0. 2 normal Not Available [facility] ([facility]) [address] [facility], [place], [address], 06/19/2024 14:15:07 06/19/19 25 06/19/2024 CBC WITH DIFFE RENTI AL/PL ATELE T immature granulocytes 0 % not estab. Not Available [facility] ([facility]) [address] [facility], [place], [address], 06/19/2024 14:15:07 06/19/19 25 06/19/2024 CBC WITH DIFFE RENTI AL/PL ATELE T immature grans (abs) 0.0 x10e3 /uL 0.0-0. 1 Not Available [facility] ([facility]) [address] [facility], [place], [address], 06/19/2024 14:15:07 06/19/19 25 06/19/2024 CBC WITH DIFFE RENTI AL/PL ATELE T NRBC [employer] Not Available [facility] ([facility]) [address] [facility], [place], [address], 06/19/2024 14:15:07 06/19/19 25 06/19/2024 CBC WITH DIFFE RENTI AL/PL ATELE T hematology comments: [employer] Not Available [facility] ([facility]) [address] [facility], [place], [address], 06/19/2024 14:15:07 06/19/19 25 06/19/2024 COMP. METAB OLIC PANEL (14) glucose 110 mg/dL 70-99 above high normal Not Available [facility] ([facility]) [address] [place], [address], 06/19/2024 14:15:07 06/19/19 25 06/19/2024 COMP. METAB OLIC PANEL (14) BUN 45 mg/dL 8-27 above high normal Not Available [facility] ([facility]) [address] [facility] [place], [address], 06/19/2024 14:15:07 06/19/19 25 06/19/2024 COMP. METAB OLIC PANEL (14) creatinine 2.01 mg/dL 0.57-1 .00 above high normal Not Available [facility] ([facility]) [address] [facility] [place], [address], 06/19/2024 14:15:07 06/19/19 25 06/19/2024 COMP. METAB OLIC PANEL (14) eGFR 28 mL/mi n/1.7 3 >59 below low normal Not Available [facility] ([facility]) [address] [facility] [place], [address], 06/19/2024 14:15:07 06/19/19 25 06/19/2024 COMP. METAB OLIC PANEL (14) BUN/creatini ne ratio 22 12-28 normal Not Available [facility] ([facility]) [address] [facility] [place], [address], 06/19/2024 14:15:07 06/19/19 25 06/19/2024 COMP. METAB OLIC PANEL (14) sodium 139 mmol/ L 134-14 4 normal Not Available [facility] ([facility]) [address] [place], [address], 06/19/2024 14:15:07 06/19/19 25 06/19/2024 COMP. METAB OLIC PANEL (14) potassium 5.1 mmol/ L 3.5-5. 2 normal Not Available [facility] ([facility]) [address] [place], [address], 06/19/2024 14:15:07 06/19/19 25 06/19/2024 COMP. METAB OLIC PANEL (14) chloride 113 mmol/ L 96-106 above high normal Not Available [facility] ([facility]) [address] [place], [address], 06/19/2024 14:15:06/19/19 25 06/19/2024 COMP. METAB OLIC [...] is very sensi tive. Not Available [facility] ([facility]) [address] [facility], [place], [address], 06/19/2024 14:15:06/19/19 25 06/19/2024 COMP. METAB OLIC PANEL (14) calcium 8.8 mg/dL 8.7-10 .3 normal Not Available [facility] ([facility]) [address] [place], [address], 06/19/2024 14:15:07 06/19/19 25 06/19/2024 COMP. METAB OLIC PANEL (14) protein, total 6.4 g/dL 6.0-8. 5 normal Not Available [facility] ([facility]) [address] [place], [address], 06/19/2024 14:15:07 06/19/19 25 06/19/2024 COMP. METAB OLIC PANEL (14) albumin 3.7 g/dL 3.9-4. 9 below low normal Not Available [facility] ([facility]) [address] [place], [address], 06/19/2024 14:15:07 06/19/19 25 06/19/2024 COMP. METAB OLIC PANEL (14) globulin, total 2.7 g/dL 1.5-4. 5 Not Available [facility] ([facility]) [address] [facility] [place], [address], 06/19/2024 14:15:07 06/19/19 25 06/19/2024 COMP. METAB OLIC PANEL (14) bilirubin, total <0.2 mg/dL 0.0-1. 2 Not Available [facility] ([facility]) [address] [facility] [place], [address], 06/19/2024 14:15:07 06/19/19 25 06/19/2024 COMP. METAB OLIC PANEL (14) alkaline phosphatase 131 IU/L 44-121 above high normal Not Available [facility] ([facility]) [address] [facility], [place], [address], 06/19/2024 14:15:07 06/19/19 25 06/19/2024 COMP. METAB OLIC PANEL (14) AST (SGOT) 10 IU/L 0-40 normal Not Available [facility] ([facility]) [address] [facility] [place], [address], 06/19/2024 14:15:07 06/19/19 25 06/19/2024 COMP. METAB OLIC PANEL (14) ALT (SGPT) 12 IU/L 0-32 normal Not Available [facility] ([facility]) [address] [facility] [place], [address], 06/19/2024 14:15:07 06/19/19 25 06/19/2024 LIPID PANEL cholesterol, total 119 mg/dL 100-19 9 normal Not Available [facility] ([facility]) [address] [facility] [place], [address], 06/19/2024 14:15:08 06/19/19 25 06/19/2024 LIPID PANEL triglyceride s 55 mg/dL 0-149 normal Not Available [facility] ([facility]) [address] [place], [address], 06/19/2024 14:15:08 06/19/19 25 06/19/2024 LIPID PANEL HDL cholesterol 36 mg/dL >39 below low normal Not Available [facility] ([facility]) [address] [facility] [place], [address], 06/19/2024 14:15:08 06/19/19 25 06/19/2024 LIPID PANEL VLDL cholesterol sangeetha 12 mg/dL 5-40 Not Available [facility] ([facility]) [address] [facility] [place], [address], 06/19/2024 14:15:06/19/19 25 06/19/2024 LIPID PANEL LDL chol calc ([facility]) 71 mg/dL 0-99 Not Available [facility] ([facility]) [address] [facility] [place], [address], 06/19/2024 14:15:08 06/19/19 25 06/19/2024 LIPID PANEL LDL calc comment: [employer] Not Available [facility] ([facility]) [address] [facility], [place], [address], 06/19/2024 14:15:06/19/19 25 06/19/2024 VITAM IN B12 AND FOLAT E vitamin B12 488 pg/mL 232-12 45 normal Not Available [facility] ([facility]) [address] [facility] [place], [address], 06/19/2024 14:15:06/19/19 25 06/19/2024 VITAM IN B12 AND FOLAT E folate (folic acid), serum 5.8 NG/mL >3.0 normal A serum folat e kurt ntrat ion of less than 3.1 ng/mL is consi dered to repre sent clini sangeetha defic iency . Not Available [facility] ([facility]) [address] [facility] [place], [address], 06/19/2024 14:15:09 06/19/1906/19/2024 HEMOG LOBIN A1C hemoglobin A1C 6.4 % 4.8-5. 6 above high normal Predi abete s: 5.7 - 6.4 Diabe jo ann: >6.4 Glyce galileo contr ol for adult s with diabe jo ann: <7.0 Not Available [facility] ([facility]) [address] [facility], [place], [address], 06/19/2024 14:15:09 08/12/19 25 08/11/2024 drug scree n, urine AMP negati ve Not Available [address], [address], 08/11/2024 14:56:09 08/12/19 25 08/11/2024 drug scree n, urine BAR negati ve Not Available [address], [address], 08/11/2024 14:56:09 08/12/19 25 08/11/2024 drug scree n, urine BUP negati ve Not Available [address], [address], 08/11/2024 14:56:09 08/12/19 25 08/11/2024 drug scree n, urine BZO negati ve Not Available [address], [address], 08/11/2024 14:56:09 08/12/19 25 08/11/2024 drug scree n, urine STACY negati ve Not Available [address], [address], 08/11/2024 14:56:09 08/12/19 25 08/11/2024 drug scree n, urine FTY negati ve Not Available [address], [address], 08/11/2024 14:56:09 08/12/19 25 08/11/2024 drug scree n, urine MDMA negati ve Not Available [address], [address], 08/11/2024 14:56:09 08/12/1908/11/2024 drug scree n, urine MET negati ve Not Available [address], [address], 08/11/2024 14:56:09 08/12/1908/11/2024 drug scree n, urine MOP negati ve Not Available [address], [address], 08/11/2024 14:56:09 08/12/19 25 08/11/2024 drug scree n, urine MTD negati ve Not Available [address], [address], 08/11/2024 14:56:09 08/12/1908/11/2024 drug scree n, urine OXY negati ve Not Available [address], [address], 08/11/2024 14:56:09 08/12/1908/11/2024 drug scree n, urine PCP negati ve Not Available [address], [address], 08/11/2024 14:56:09 08/12/1908/11/2024 drug scree n, urine TCA negati ve Not Available [address], [address], 08/11/2024 14:56:09 08/12/19 25 08/11/2024 drug scree n, urine THC positi ve Not Available [address], [place], [place], [address], 08/11/2024 14:56:09 03/05/19 25 03/05/2024 CT, abdom en + pelvi s, w/o contr ast No observ ation record ed. [facility] [address], [place], [address], 03/05/2024 15:21:51 03/05/19 25 03/05/2024 CT, chest , w/o contr ast No observ ation record ed. [place] [id number], [place], [address], 03/05/2024 15:21:51 03/08/19 25 03/05/2024 elect rocar diogr am No observ ation record ed. [place] [id number], [place], [address], 03/09/2024 08:21:13 03/15/19 25 03/15/2024 XR, chest , 2 view No observ ation record ed. [place] [id number], [place], [address], 03/16/2024 10:06:59 03/15/19 25 03/15/2024 CT, angio gram, chest , w/ contr ast No observ ation record ed. [place] [id number], [place], [address], 03/16/2024 10:06:24 03/15/19 25 03/15/2024 CT, angio gram, chest , w/ contr ast No observ ation record ed. [place] [id number], [place], [address], 03/16/2024 10:05:58 03/16/19 25 03/15/2024 elect rocar diogr am No observ ation record ed. [facility] [address], [place], [place], [address], 03/16/2024 13:50:58 03/16/19 25 03/15/2024 elect rocar diogr am No observ ation record ed. [facility] [address], [place], [place], [address], 03/16/2024 13:50:44 03/17/19 25 03/17/2024 XR, chest , 2 view No observ ation record ed. [facility] [address], [place], [place], [address], 03/17/2024 13:18:34 03/17/19 25 03/16/2024 stres s echoc ardio gram with doppl er color flow (PROC ) No observ ation record ed. [facility] [address], [place], [place], [address], 03/17/2024 13:18:15 03/19/19 25 03/19/2024 XR, chest , 2 view No observ ation record ed. [facility] [address], [place], [place], [address], 03/19/2024 08:41:39 04/10/19 25 04/10/2024 XR, chest , 2 view No observ ation record ed. [facility] [address], [place], [address], 04/10/2024 16:14:04 04/17/19 25 04/16/2024 XR, chest , 2 view No observ ation record ed. [facility] (X-Ray) [address] [place], [address], 04/16/2024 14:20:52 04/18/19 25 04/16/2024 XR, chest , 2 view No observ ation record ed. [facility] [address], [place], [address], 04/17/2024 11:56:42 04/22/19 25 04/16/2024 elect rocar diogr am No observ ation record ed. [facility] [address], [place], [place], [address], 04/23/2024 08:20:46 04/23/19 25 04/21/2024 , [facility] ardio gram, trans esoph ageal No observ ation record ed. [facility] [address], [place], [place], [address], 04/23/2024 08:20:47 04/28/19 25 04/21/2024 elect rocar diogr am No observ ation record ed. [facility] [address], [place], [address], 04/27/2024 09:33:58 04/28/19 25 04/21/2024 elect rocar diogr am No observ ation record ed. [facility] [address], [place], [address], 04/27/2024 09:33:58 07/03/19 25 07/01/2024 LDCT, chest , for lung cance r scree aaliyah No observ ation record ed. [facility] [address], [place], [address], 07/03/2024 09:03:51 10/06/19 25 10/05/2024 elect rocar diogr am No observ ation record ed. [facility] [address], [place], [address], 10/06/2024 08:11:23 11/16/1911/15/2024 CT, abdom en + pelvi s, w/o contr ast No observ ation record ed. [facility] [address], [place], [address], 11/16/2024 08:37:43 11/16/1911/15/2024 XR, chest , 2 view No observ ation record ed. [facility] [address], [place], [place], [address], 11/16/2024 08:37:21 11/16/1911/15/2024 CT, abdom en + pelvi s, w/ contr ast No observ ation record ed. [facility] [address], [place], [address], 11/16/2024 08:36:56 11/17/1911/15/2024 elect rocar diogr am No observ ation record ed. [facility] [address], [place], [address], 11/16/2024 08:35:30 11/18/1911/16/2024 US, doppl er echoc ardio gram, w/ color flow No observ ation record ed. [facility] [address], [place], [address], 11/17/2024 13:01:52 Result Notes None recorded. 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 2015 Ivonne Jones APRN [address], [place], [address], [place] [facility] 4 14:58:47 Disorder of bone 51297153 Active 2015 Crystal Julianne null, [place] - [facility] 6 09:30:30 History of cardiovascu lar disease 276462541 Active 2015 Ivonne Jones, [employer]ATION [employer]CH[employer] [address], [place], [address], [place] [facility] 4 14:59:00 Colostomy present 605374210 Completed 201509/03/2017 Dinorah Sharp null, [place] - [facility] 8 13:35:52 Type 2 diabetes mellitus 42225439 Active 2015 Ivonne Jones, [employer]CH[employer] [address], [place], [address], [place] [facility] 4 14:58:43 Hyperlipide farooq 84510946 Active 2015 Ivonne Jones, [employer]ATION [employer]CH[employer] [address], [place], [address], [place] [facility] 4 14:58:53 History of hypertensio n 754810917 Active 2015 Ivonne Jones, [employer]ATION [employer]CH[employer]IC [address], [place], [address], [place] [facility] 4 14:58:55 Hypothyroid ism 63117332 Active 2015 Ivonne Jones, [employer]ATION [employer]CH[employer]IC [address], [place], [address], [place] [facility] 4 14:58:51 Neuropathy due to diabetes mellitus 745746763 Active 2015 Ivonne Jones, [employer]ATION [employer]CH[employer]IC [address], [place], [address], [place] [facility] 4 14:58:46 Pancreatiti s 54053530 Active 2015 Crystal Julianne null, [place] - [facility] 6 09:32:11 Spasm of urinary bladder 562340921 Completed 201511/23/2015 Crystal Julianne null, [place] - [facility] 6 09:32:45 Insomnia 395074910 Active 2016 Daysivioleta daxa, CHONG [address], [place], [address], [place] - [facility] 4 14:58:50 Candidiasis 46737563 Active 2017 Vincent Amin MD [address], [place], [address], [place] - [facility] 8 15:37:13 Fatigue 88393261 Active 2017 Anne aguilar, [place] - [facility] 8 10:26:48 Urostomy present 390649414 Active 2017 Daysivioleta Jones, [employer]CH[employer] [address], [place], [address], [place] [facility] 4 14:58:41 External hordeolum 8654782 Active 2017 Vincent Amin MD [address], [place], [address], [place] [facility] 8 12:11:25 Depressive disorder 00196511 Active 2023 Daysivioleta NESTOR mittalN [address], [place], [address], [place] [facility] 4 14:59:02 Chronic obstructive pulmonary disease 97555568 Active 2024 Daysivioleta Jones APRN [address], [place], [address], [place] [facility] 5 15:11:34 Congestive heart failure 36819966 Active 2024 Daysivioleta NESTOR mittalN [address], [place], [address], [place] [facility] 5 15:45:47 Blood group O Rh(D) positive 904235432 Active 2024 Daysivioleta NESTOR mittalN [address], [place], [address], [place] - [facility] 5 11:32:24 Problem [...] Name and Address Organization Details Recorded Time 78142 ibuprofen medicatio n Not available Not available Not available 11/18/20152014 5640 RxNorm Elly Stears null, [place] - [facility] 14:03:15 Medications Name Sig Start Date Stop Date Status Note LastModified by Organization Details LastModified Time Prescript ion - Renewal 07/11 completed [facility] Not Available Not Available Not Available Prescript ion - Clarifica tion 09/23 completed [facility] Not Available Not Available Not Available [...] Disconti nued on: 09/27/19 16 2:00PM;U ser: [facility]; Pharmacy Verified : 08/25/19 16 3:50PM [...] completed Not Available Not Available Not Available Compliance ControlToSpreadsave Ultra Blue Test Strip TEST BLOOD SUGAR [...] Available Not Available Not Available Dexcom G7 Media Planner / Buyer DIRECTED active Not Available Not Available No [...] Updated DateTime 5 154.94 cm 25.3 kg/m2 81611.3 8 g 62 /min 98 % 18 /min 0 94/60 mm[Hg] Cara Campos [place] - [facility] 5 15:09:52 Date Recorded Body height Body mass index (BMI) Body weight Heart rate Oxygen saturation Respiratory rate Pain severity - 0-10 verbal numeric rating [Score] - Reported Systolic And Diastolic Provider Name and Address Organization Details Last Updated DateTime 5 154.94 cm 28.3 kg/m2 46113.8 6 g 120 /min 98 % 18 /min 0 96/62 mm[Hg] Cara Campos [place] - [facility] 5 11:37:47 Date Recorded Body height Respiratory rate Body mass index (BMI) Body weight Heart rate Oxygen saturation Body temperature Systolic And Diastolic Provider Name and Address Organization Details Last Updated DateTime 5 154.94 cm 18 /min 25.5 kg/m2 35092.9 7 g 70 /min 97 % 97.7 [degF] 104/62 mm[Hg] Elly Stears [place] - [facility] 5 13:44:39 Date Recorded Body height Body mass index (BMI) Body weight Heart rate Oxygen saturation Respiratory rate Pain severity - 0-10 verbal numeric rating [Score] - Reported Systolic And Diastolic Provider Name and Address Organization Details Last Updated DateTime 5 154.94 cm 26.5 kg/m2 85335.9 3 g 60 /min 98 % 18 /min 0 110/68 mm[Hg] Cara Andres [place] - [facility] 5 14:10:55 Date Recorded Body height Respiratory rate Body mass index (BMI) Body weight Body temperature Systolic And Diastolic Provider Name and Address Organization Details Last Updated DateTime 5 154.94 cm 20 /min 24.8 kg/m2 70919.6 g 97.8 [degF] 112/64 mm[Hg] Elly Quinteross [place] - [facility] 5 13:51:31 Social History Question Answer Notes LastModified by Organizat ion Details LastModified Time Tobacco Smoking Status Current Every Day Smoker Dariela Julianneyuliet aguilar [facility] 11/23/2015 09:34:05 Do You Have [...] Type Of Diet Are You Following? REGULAR [email or web address] Information not available 10/29/2016 Which Illicit Or [...] Or The Highest Degree You Have Received? [id number] Information not available 02/26/2023 Have There Been [...] Do You Have A Medical Power Of Associate Consulting Engineer? No Information not available 02/26/2023 What Was [...] able to care for yourself independently? Yes [email or web address] Information not available 10/29/2016 Do you have difficulty dressing, bathing, grooming, or toileting? No Information not available 02/26/2023 What is your exercise level? None Information not available 02/26/2023 Mental Status Question Answer Note LastModified by Organizat ion Details LastModified Time Do you feel stressed (tense, restless, nervous, or anxious, or unable to sleep at night)? [id number] Information not available 02/26/2023 Do you have [...] Condition Response Diabetes Y Anxiety Disorder Y Muscle, Joint, or Bone Problems Y Heart Problems Y Obesity Y Hyperlipidemia Y Thyroid Problems Y Kidney or Bladder Problems Y Depression Y GI Problems Y Hypothyroidism Y Constipation Y Hypercholesterolemia Y Neuropathy Y Heart Disease Y Hypertension Y Gynecological History Statement/Question Response [...] virus, quadrivalent, preservative 7 completed Not Available [facility] 02/28/2019 03:54:44 Pneumococcal conjugate PCV 13 7 completed Not Available [facility] 02/28/2019 03:54:53 Influenza, split virus, trivalent, preservative 4 completed Ivonne Jones, CHONG [address], [place], [address], [place] - [facility] 11/29/2023 13:27:24 Influenza, split virus, quadrivalent, preservative 8 completed Not Available [facility] 02/28/2019 03:55:20 Influenza, split virus, quadrivalent, preservative 9 completed Cara Andres null, [place] - [facility] 03/26/2023 10:50:48 Influenza, split virus, trivalent, PF 6 completed Cara Andres [place] [facility] 03/26/2023 10:50:48 Td (adult), 2 Lf tetanus toxoid, preservative free, adsorbed 7 completed Cara Andres [place] - [facility] 03/26/2023 10:50:48 Hep B, adult 5 completed Cara [place] [facility] 03/26/2023 10:50:48 Hep B, adult 4 completed Car[place] [facility] 03/26/2023 10:50:48 Hep B, adult 4 completed Cara [place] [facility] 03/26/2023 10:50:48 Influenza, split virus, quadrivalent, PF 0 completed Car[place] [facility] 03/26/2023 10:50:48 Influenza, split virus, quadrivalent, PF 3 completed Car[place] [facility] 03/26/2023 10:50:49 Influenza, split virus, quadrivalent, PF 2 completed Cara Andres null, [place] - [facility] 03/26/2023 10:50:49 Past Encounters Encounter ID Performer Location Encounter Start Date Encounter Closed Date Diagnosis/Indication Diagnosis SNOMED-CT Code Diagnosis ICD10 Code Diagnosis IMO Codes Diagnosis Note [id number] Anne Mott APRN [facility] [address] [place] [address] 11/23/2015 09:25:12 11/23/2015 13:25:24 Diabetes mellitus 93494460 E11.9 Acquired hypothyroidism 844325235 E03.9 Vitamin D deficiency 347 65761 E55.9 History of cardiovascular disease 779996137 Z86.79 History of hypertension 739298104 Z86.79 Neuropathy due to diabetes mellitus 293624240 E11.40 Hypothyroidism 23475013 E03.9 Hyperlipidemia 89216042 E78.5 [id number] Anne Mott [address] [place] [address] 12/27/2015 10:43:37 12/27/2015 16:15:20 Anxiety 43863337 F41.9 Acquired hypothyroidism 647615627 E03.9 [id number] Anne oMtt [address] [place] [address] 01/26/2016 11:16:47 01/26/2016 13:02:03 Neuropathy due to diabetes mellitus 518718419 E11.40 Renewal of prescription 837500256 Z76.0 Disorder of bone 0836802 3 M89.9 Anxiety 64608379 F41.9 Acquired hypothyroidism 988160121 E03.9 [id number] Anne [address] [place] [address] 02/15/2016 16:20:52 02/15/2016 16:55:09 Candidiasis of skin 50156868 B37.2 [id number] Anne Cus[address] [place] [address] 02/27/2016 13:27:14 02/27/2016 14:33:44 Anxiety 51968798 F41.9 Type 2 jonathon betes mellitus 49932042 E11.9 Acquired hypothyroidism 178028435 E03.9 Candidiasis 80510888 B37 .9 under breast and vulvo perineal area is much better than last visit [id number] Anne Mott [address] [place] [address] 03/29/2016 08:04:47 03/29/2016 09:47:03 Type 2 diabetes mellitus 61303729 E11.9 Hypothyroidism 48893960 E03.9 Neuropathy due to diabetes mellitus 405481672 E11.40 History of hypertension 315853252 Z86.79 Hyperlipidemia 47688026 E78.5 Anxiety 01972585 F41.9 Renewal of prescription 947775601 Z76.0 Anne [address] [place] [address] 04/19/2016 09:22:42 04/19/2016 11:19:36 Hypokalemia 97648099 E87.6 Insomnia 635476588 G47.0 0 [id number] Annearturo Mott[address] [place] [address] 04/26/2016 12:30:47 04/26/2016 13:50:41 Renewal of prescription 953989171 Z76.0 Anxiety 57207881 F41.9 Decreased renal function 29128152 R94.4 chronic, referral has been made to nephrology Hypothyroidism 97994183 E03.9 Type 2 jonathon betes mellitus 42116143 E11.9 History of cardiovascular disease 313048089 Z86.79 [id number] Annearturo Mott[address] [place] [address] 05/28/2016 12:40:29 05/28/2016 18:20:31 Anxiety 41843284 F41.9 [id number] Annearturo Mott[address] [place] [address] 07/26/2016 16:00:07 07/26/2016 17:15:20 Anxiety 44480461 F41.9 Body mass index 30+ - obesity 945477341 Z68.33 Nicotine dependence 5629 4008 F17.200 Neuropathy due to diabetes mellitus 297777479 E11.40 Open wound 164605103 S21 .90XD small opening noted wher drain tube was at bottom of sternotomy scar which is well healed [id number] Annearturo Mott[address] [place] [address] 08/28/2016 10:12:46 08/28/2016 10:49:11 Anxiety 13144485 F41.9 Insomnia 108753975 G47.0 0 Essential hypertension 92215438 I10 Hypothyroidism 43664983 E03.9 Hyperlipidemia 01503658 E78.5 Colostomy present 566755 009 Z93.3 Type 2 jonathon betes mellitus 28925043 E11.9 [id number] Anne Mott [address] [place] [address] 09/26/2016 15:41:14 09/26/2016 16:27:06 Anxiety 62177534 F41.9 Insomnia 387304068 G47.0 0 [id number] Anne Mott [address] [place] [place] [address] 10/29/2016 10:15:48 10/29/2016 13:51:37 Insomnia 133217375 G47.00 History of hypertension 836137223 Z86.79 Anxiety 66670326 F41.9 History of cardiovascular disease 744873321 Z86.79 Neuropathy due to diabetes mellitus 707899593 E11.40 Colostomy present 101578 009 Z93.3 Hypothyroidism 93089479 E03.9 Type 2 jonathon betes mellitus 01252016 E11.9 Hyperlipidemia 11873969 E78.5 3324023 Annearturo Mott[address] [place] [address] 11/26/2016 14:15:45 11/26/2016 15:26:09 Renewal of prescription 189996032 Z76.0 History of cardiovascular disease 240735944 Z86.79 History of hypertension 686293149 Z86.79 Type 2 jonathon betes mellitus 56454111 E11.9 Anxiety 95171381 F41.9 1389649 Anne Mott[address] [place] [address] 12/27/2016 13:29:34 12/27/2016 14:15:59 Renewal of prescription 878028175 Z76.0 Insomnia 193606621 G47.0 0 Active or passive immunization 268374423 Z23 [id number] Anne Mott [address] [place] [address] 01/22/2017 14:06:34 01/22/2017 15:30:08 Renewal of prescription 244050466 Z76.0 Anxiety 06046577 F41.9 Body mass index 30+ - obesity 513728203 Z68.34 [id number] Annearturo Mott [address] [place] [address] 02/28/2017 13:01:09 02/28/2017 13:53:23 Renewal of prescription 941091485 Z76.0 Anxiety 64679820 F41.9 Body mass index 30+ - obesity 242315285 Z68.34 [id number] Annearturo Mott [address] [place] [address] 04/25/2017 10:46:10 04/25/2017 12:02:47 Neuropathy due to diabetes mellitus 242208607 E13.40 Renewal of prescription 020512106 Z76.0 Anxiety 04323647 F41.9 History of cardiovascular disease 036023653 Z86.79 Hypothyroidism 77956430 E03.9 [id number] Vincent Amin MD [address] [place] [address] 05/23/2017 14:14:23 05/23/2017 15:31:00 Diabetes mellitus 94878419 E11.9 Candidiasis 85687899 B37 .9 Colostomy present 099442 009 Z93.3 Type 2 jonathon betes mellitus 03738585 E11.37X1 Anxiety 20689627 F41.9 Hyperlipidemia 84146759 E78.5 2805765 Anne Tiera[address] [place] [address] 07/11/2017 10:03:27 07/11/2017 11:41:31 Neuropathy due to diabetes mellitus 547093512 E13.40 Insomnia 489248390 G47.0 0 Body mass index 30+ - obesity 736809218 Z68.34 3324640 Annearturo Mott[address] [place] [address] 07/24/2017 12:46:10 07/24/2017 15:28:15 Anxiety 74935334 F41.9 Renewal of prescription 032021680 Z76.0 Candidiasis of skin 4988 3006 B37.2 [id number] Annearturo Mott[address] [place] [address] 08/22/2017 09:40:55 08/22/2017 10:52:06 Anxiety 78607232 F41.9 Type 2 jonathon betes mellitus 31118401 E11.9 Hypothyroidism 77121184 E03.9 History of hypertension 875293100 Z86.79 History of cardiovascular disease 290291286 Z86.79 Fatigue 62763594 R53.83 Viral screening 96797781 4 Z11.59 Screening for malignant neoplasm of colon 840246649 Z12.11 Hyperlipidemia 09140017 E78.5 Vitamin D deficiency 347 10506 E55.9 Anemia 995998003 D64.9 Pain of mu ltiple joints 51733296 M25.50 [id number] Anne Mott[address] [place] [address] 09/03/2017 12:38:43 09/03/2017 13:52:03 Methicillin resistant Staphylococcus aureus infection 202014712 A49.02 Chronic confusion 829069 005 R41.0 9897554 Anne Mott[address] [place] [address] 09/23/2017 13:13:01 09/23/2017 14:08:42 Anxiety 23067662 F41.9 History of hypertension 475588115 Z86.79 [id number] Betsey Cuellar[address] [place] [address] 10/24/2017 15:22:59 10/24/2017 17:13:34 Anxiety 76713194 F41.9 Benign hypertension 1072 5009 I10 [id number] Anne Mott [address] [place] [address] 11/20/2017 13:42:52 11/20/2017 15:14:18 Anxiety 06551907 F41.9 Neuropathy due to diabetes mellitus 891312295 E13.40 Insomnia 206760125 G47.0 0 Administra tion of influenza vaccine 18933701 Z23 Type 2 jonathon betes mellitus 22698727 E11.9 History of cardiovascular disease 655106971 Z86.79 [id number] Vincent Amin MD [facility] [address] [place], [place] [address] [place] [address] 12/19/2017 15:49:29 12/19/2017 18:10:12 Anxiety 04460375 F41.9 Candidiasis of skin 4988 3006 B37.2 Hordeolum externum of upper eyelid of right eye 0073805512 04341 H00.011 Candidiasis 49333515 B37 .9 History of hypertension 990320814 Z86.79 Neuropathy due to diabetes mellitus 660023579 E11.40 Hyperlipidemia 66387167 E78.5 Pancreatitis 10101872 K8 5.90 External hordeolum 19117 08 H00.019 Urostomy present 0652487 04 Z93.6 5880238 Betsey Cuellar APRN [facility] [address] [place], [place] [address] [place] [address] 02/20/2018 08:48:36 02/20/2018 09:19:38 Anxiety 74866090 F41.9 Neuropathy due to diabetes mellitus 362628512 E11.40 Benign hypertension 1072 5009 I10 Insomnia 337183493 G47.0 0 Hypothyroidism 28939121 E03.9 Fecal occu lt blood: positive 007562418 R19.5 [id number] Ivonne Jones APRN [address] [address] 02/26/2023 13:49:28 02/26/2023 15:29:07 Anxiety 18342631 F41.9 discussed with pt and daughter that due to her pot smoking daily and she takes 4 controlled substance, at this time I would not take those over. discussed if she would stop smoking pot and give a clean uds I could do her xanax and gabapentin but would not write norco and ambien. Depressive disorder 6770 2002 F32.A History of cardiovascular disease 922840619 Z86.79 History of hypertension 999793744 Z86.79 Hypothyroidism 58729924 E03.9 Insomnia 200600414 G47.0 0 Neoplasm o f urinary bladder 608300565 D49.4 Neuropathy due to diabetes mellitus 483774738 E11.40 Type 2 jonathon betes mellitus 28333690 E11.9 pt interested in omnipod pump. Urostomy present 7542396 04 Z93.6 7387602 Ivonne Robert [place] [address] 03/26/2023 10:33:57 03/26/2023 11:48:39 Anxiety 08453050 F41.9 discussed with pt and daughter due to her smoking pot she needs to work on stop smoking. will send xanax and take it over. Depressive disorder 3548 9007 F32.A will increase depression med and send sleep aid. Type 2 jonathon betes mellitus 25887042 E11.9 Long-term current use of benzodiazepine 8764681069 9574664 Z79.899 Insomnia 945912811 G47.0 0 [id number] Daysivioleta Jones [place] [address] 04/09/2023 10:59:34 04/09/2023 11:37:43 Insomnia 384020600 G47.00 discussed risk with pt Anxiety 65342867 F41.9 discussed with pt and daughter due to her smoking pot she needs to work on stop smoking. will send xanax and take it over. [id number] Ivonne Jones [place] [address] 04/15/2023 10:51:49 04/15/2023 12:57:47 Type 2 diabetes mellitus 74388119 E11.9 omnipod pod will not connect to pump notified omnipod customer service [id number] Daysivioleta daxa [place] [address] 05/07/2023 10:38:41 05/07/2023 11:06:32 Anxiety 06929298 F41.9 discussed with pt and daughter due to her smoking pot she needs to work on stop smoking. will send xanax and take it over.pt states she has continued to not smoke pot. Type 2 jonathon betes mellitus 38991553 E11.9 call omnipod for replacemen t pump- number given to pt [id number] Ivonne Jones [address] [address] 05/10/2023 10:37:59 05/10/2023 11:39:12 Type 2 diabetes mellitus 56568727 E11.9 omnipod set up and pt verbalizes understand ing [id number] Ivonne Jones [address] [address] 05/13/2023 10:53:27 05/13/2023 11:57:27 Type 2 diabetes mellitus 45742715 E11.9 dexcom set up and pt verbalizes understand ing [id number] Ivonne Jones [address] [address] 05/31/2023 08:50:06 05/31/2023 09:49:38 Type 2 diabetes mellitus 34974966 E11.9 dexcom set up and pt verbalizes understand ing Anxiety 59107321 F41.9 discussed with pt and daughter due to her smoking pot she needs to work on stop smoking. will send xanax and take it over.pt states she has continued to not smoke pot. Vitamin D deficiency 347 40000 E55.9 [id number] Ivonne Jones [address] [address] 06/17/2023 09:04:34 06/17/2023 09:45:38 Acute confusion 017515962 R41.0 Chronic ki dney disease 474185663 N18.9 Acute urin glenroy tract infection 462628022 N39.0 if symptoms worsen or no improvemen t return or go to ed [id number] Ivonne Jones [address] [address] 06/25/2023 10:50:22 06/25/2023 11:21:34 Depressive disorder 24971424 F32.A will increase depression med and send sleep aid. Anxiety 19256563 F41.9 discussed with pt and daughter due to her smoking pot she needs to work on stop smoking. will send xanax and take it over.pt states she has continued to not smoke pot. Type 2 jonathon betes mellitus 81500767 E11.9 [id number] Ivonne Jones APRN [address] [address] 10/17/2023 14:02:27 10/17/2023 14:34:54 Anxiety 21299926 F41.9 Pt compliant with plan of careKasper reviewedme dication compliance discussedL ast uds:10/17/23 Control substance agreement on file Long-term current use of benzodiazepine 5269514777 9759943 Z79.899 discussed uds results and pt states she will stop smoking pot. discussed next visit if uds not neg will start adjusting meds Type 2 jonathon betes mellitus 89030783 E11.9 discussed the importance to check glucosewri te it down in log and bring to next appointmen tdiscussed importance of taking insulin and taking care of self. [id number] Ivonne Jones APRN [address] [address] 11/15/2023 09:01:36 11/15/2023 09:58:44 Anxiety 98322219 F41.9 Pt compliant with plan of careKasper reviewedme dication compliance discussedL ast uds:10/17/23 Control substance agreement on filewill give 7 extra tabs to take at noon if needed on days where her anxiety is increased Depressive disorder 3548 9007 F32.A History of hypertension 553299916 Z86.79 History of cardiovascular disease 327282988 Z86.79 Hyperlipidemia 85234103 E78.5 Hypothyroidism 06754799 E03.9 Type 2 jonathon betes mellitus 16038993 E11.9 discussed the importance to check glucosewri te it down in log and bring to next appointmen tdiscussed importance of taking insulin and taking care of self. Neuropathy due to diabetes mellitus 725402598 E11.40 Urostomy present 0026996 04 Z93.6 Candidiasis 97855580 B37 .9 keep area clean and dry apply cream [id number] Ivonne Jones APRN [address] [address] 11/29/2023 10:40:35 11/29/2023 11:26:24 Influenza vaccine needed 6185483857 106 Z23 Pain of ri ght upper arm 0204507354 07644 M79.621 Type 2 jonathon betes mellitus 31545411 E11.9 discussed the importance to check glucosewri te it down in log and bring to next appointmen tdiscussed importance of taking insulin and taking care of self. Pain of ri ght shoulder joint 7727118947 9603051 M25.192 [id number] Ivonne Jones APRN [address] [address] 12/24/2023 10:36:27 12/24/2023 11:33:59 Renewal of prescription 875373483 Z76.0 Depressive disorder 3548 9007 F32.A Type 2 jonathon betes mellitus 14676691 E11.9 discussed the importance to check glucosewri te it down in log and bring to next appointmen tdiscussed importance of taking insulin and taking care of self. Vitamin D deficiency 347 71835 E55.9 History of cardiovascular disease 728011066 Z86.79 Restless l egs syndrome 99921894 G25.81 Urostomy present 7951565 04 Z93.6 [id number] Ivonne Jones APRN [address] [address] 01/21/2024 14:10:39 01/21/2024 15:59:35 Long-term current use of benzodiazepine 3015587366 5926186 Z79.899 discussed uds results. again discussed the importance of not smoking pot with meds. pt states it helps with anxiety. will increase meds discussed the concerns of her continuing to smoke pot and her contract Anxiety 34599897 F41.9 Pt compliant with plan of careMariahsper reviewedme dication compliance discussedL ast uds:Control substance agreement on filewill give 7 extra tabs to take at noon if needed on days where her anxiety is increased [id number] Ivonne Jones APRN [address] [address] 02/13/2024 13:49:38 02/13/2024 15:05:04 Acute exacerbation of chronic obstructive pulmonary disease 933187690 J44.1 continue steroidsbr eathing txif symptoms worsen or do not improve return Candidiasis of skin 4988 3006 B37.2 if worsen returnclea n skin well apply powder and then vaseline, then gauze [id number] Ivonne Jones APRN [address] [address] 03/02/2024 14:49:29 03/02/2024 16:01:58 Candidiasis of mouth 98253434 B37.0 Memory impairment 921662 006 R41.3 9798688 Ivonne Jones [address] [address] 03/26/2024 14:43:32 03/26/2024 15:44:32 Pressure injury stage I 1829415689 L89.91 dressing applied to buttocks- wound care referral sent Congestive heart failure 35834224 I50.9 History of cardiovascular disease 778569622 Z86.79 call cardiology mercedes if plavix is not in home meds- discussed the need to have plavix unless told by cardiology not to be on Pneumonia 705828264 J18. 9 continue treatment [id number] Daysivioleta Jones [address] [address] 04/14/2024 11:10:09 04/14/2024 12:13:43 Chronic obstructive pulmonary disease 94630365 J44.9 Urostomy present 9346860 04 Z93.6 Abnormal weight gain 161 840383 R63.5 Dyspnea 171145187 R06.00 pt refuses to go to ed. discussed risk of not going pt still declines pt states she is not going to the [facility] [id number] [facility] [address] [address] 05/11/2024 13:31:52 05/11/2024 13:57:29 Anxiety 84486638 F41.9 Pt compliant with plan of careKasper reviewedme dication compliance discussedL ast uds:Control substance agreement on filewill give 7 extra tabs to take at noon if needed on days where her anxiety is increased Unexplaine d weight loss 028321833 R63.4 History of cardiovascular disease 836772189 Z86.79 History of primary malignant neoplasm of urinary bladder 239989469 Z85.51 Screening for malignant neoplasm of breast 011958037 Z12.39 [id number] Ivonne daxa FLOOR INSTALLATION MECHANIC [address] [address] 06/18/2024 13:58:48 06/18/2024 14:40:44 Candidiasis of skin 99791269 B37.2 781051 if worsen returnclea n skin well apply powder and then vaseline, then gauze Pruritus of vagina 50777 003 N89.8 039255 [id number] Ivonne Jones APRN [address] [address] 08/11/2024 13:37:47 08/11/2024 14:45:46 Anxiety 39341055 F41.9 Pt compliant with plan of careAmador reviewedme dication compliance discussedL ast uds:08/12/19 25Control substance agreement on fileuds results discussed- discussed pp control substance policy Type 2 jonathon betes mellitus 82113435 E11.9 discussed the importance to check glucosewri te it down in log and bring to next appointmen t Normal weight 88392065 Z 68.24 2576346052 24.8 Family conflict 29958393 Z63.8 49551 Chronic constipation 236 914589 K59.09 203760 Health Concerns Section Related Observation LastModified by Organization Detai ls LastModified Time None Recorded Concern Status LastModified by Organization Details LastModified Time None Recorded Advance Directives Directive N: Payers Insurance Date Sequence Insurance Name Policy Number Policy Garnica Covered Member ID Garnica Member ID Guarantor Name 11/11/2024 2 [place] [place]TRADITIO NAL Laxmi Cronin [id number] Laxmi Cronin 08/11/2024 2 [place]AD[place] RAFA Cornin [id number] Laxmi Cronin 04/02/2023 SLIDING FEE SCHEDULE - DISCOUNT Laxmi Cronin 11/11/2024 1 [employer] - GOLD PLUS (MEDICARE REPLACEMENT/ ADVANTAGE - HMO) Laxmi Cronin [id number] Laxmi Cronin 08/11/2024 2 [place] Laxmi Cronin [id number] Laxmi Cronin 11/12/2024 [facility] [place] [facility] (MEDICARE) Laxmi Cronin [id number] Laxmi Cronin Notes Date Note Type Note Provider Name and Address Organization Details Recorded Time 03/26/2024 text/html Emergency Depart ment Follow-Up RecordReported by PatientEmergency Room Follow-Up RecordFor discharge information, patient reportsname of hospital/urgent care patient was seen: ([facility] and ),patient presented to hospital/urgent care [...] to kidneys/urinary tract and the other at [facility] for pneumonia and pulmonary embolus. Ivonne Jones APRN [address], [place], [address], [place] - [facility] 03/26/2024 15:49:08 04/14/2024 text/html ROS as noted in the HPI 63 yr old female presents with raspy cough and short of breath. She has gained around 15 pounds in the last few weeks. Ivonne Jones APRN [address], [place], [address], [place] [facility] 04/14/2024 12:06:30 05/11/2024 text/html 63 year old female who presents to the office today for a follow up on anxiety, needs alprazolam refilled. pt states meds help with her anxiety.pt has lost 15lbs since last visit on 3-4-25,declines colonoscopy, will do mamm.labs,urology consult, pt states she just is not hungry or feel like eating. Ivonne JonesCHONG [address], [place], [address], [place] - [facility] 05/11/2024 14:10:36 06/18/2024 text/html ROS as noted in the HPI 64 yr old female presents for vaginal discharge and itching for over a week. She is red under abdomen, breast and groin. Ivonne JonesCHONG [address], [place], [address], [facility] - [facility] 06/18/2024 14:48:28 08/11/2024 text/html 64 [...] Ivonne JonesCHONG [address], [place], [address], [place] - [facility] 08/11/2024 16:56:42 OBGyn Episode No OBEpisode recorded.
--- OUTSIDE RECORDS SUMMARY | 2025-01-08 06:50 | XMS_ITS | Encounter Summary ---
Author Organization [email or web address] ([place], [place], [place], [place], [place]) Address [address] [place] [address] Care Team Providers Care Pier Hand Helper Name Role Phone Unavailable Primary Care Provider Unavailabl e Encounter Details Date Type Department Care Team (Late st Contact Info) Description 03/25/2018 Transcribed Document [facility] [place] Family Medicine [facility] [place] [address] ProvideriZon MD [address] [place] [id number] Social History Tobacco Use Types Packs/Day Years Used Date Smoking Tobacco: Never Assessed Comments Unknown Sex and Gender Information Value Date Recorded Sex Assigned at Not on file Legal Sex Female 4:39 PM CDT Gender Identity Not on file Sexual Orientation Not on file documented as of this encounter Miscellaneous Notes * [employer] Conversion Note - Historical ProviderMD - 03/25/2018 1:44 PM CARD DEALER Patient: ETHAN LOREDO Age: 57 Years Sex: [...] underlying sinus rhythm. 2. Biventricular internal cardioverter-defibrillator [employer], this device was reprogrammed, the values as [...] Electronically signed by Jorge Alberto, Merlinh Conversion Fundraising Specialist Cerner at 05/29/2022 8:29 PM CDT documented in this encounter Plan of Treatment Not on file documented as of this encounter Visit Diagnoses Not on filedocumented in this encounter
--- OUTSIDE RECORDS SUMMARY | 2025-01-08 06:50 | XMS_ITS | Encounter Summary ---
Author Organization [employer] ([place], [place], [place], [place], [place]) Address [address] [place] [address] Care Team Providers Care Robot Operator Name Role Phone Unavailable Primary Care Provider Unavailabl e Encounter Details Date Type Department Care Team (Late st Contact Info) Description 03/25/2018 Transcribed Document [facility] [place] [facility] [place] [address] ProviderZion MD [address] [place] [address] Social History Tobacco Use Types Packs/Day Years Used Date Smoking Tobacco: Never Assessed Comments Unknown Sex and Gender Information Value Date Recorded Sex Assigned at Not on file Legal Sex Female 4:39 PM CDT Gender Identity Not on file Sexual Orientation Not on file documented as of this encounter Miscellaneous Notes * Cerner Conversion Note - Zion ProviderMD - 03/25/2018 8:01 AM GLASSWARE ENGRAVER Patient: ETHAN CRONIN Age: 57 years Sex: Female : 1960 Associated Diagnoses: None Author: NAVID STARKEY, [facility] 57 year old female with bradycardia during outpt infusion for bacteremia PMH: CAD, CABG/pacemaker 3 years ago, DM, HTN, and [place] Consult: vancomycin Indication: bacteremia Goal of Trough: [...]
--- OUTSIDE RECORDS SUMMARY | 2025-01-08 06:50 | XMS_ITS | Referral Summary ---
Author Organization [employer] ([place], [place], [place], [place], [place]) Address [address] [place] [address] Care Team Providers Care Book Retailer Name Role Phone Unavailable Primary Care Provider [...]
--- OUTSIDE RECORDS SUMMARY | 2025-01-08 06:50 | XMS_ITS | Encounter Summary ---
Author Organization [employer] ([place], [place], [place], [place], [place]) Address [address] [place] [address] Care Team Providers Care Plane Tableman Name Role Phone Unavailable Primary Care Provider Unavailabl e Encounter Details Date Type Department Care Team (Late st Contact Info) Description 03/26/2018 Transcribed Document [facility] [place] Family Medicine [address] [place] [address] ProviderZion MD [address] [place], [place] [id number] Social History Tobacco Use Types Packs/Day Years Used Date Smoking Tobacco: Never Assessed Comments Unknown Sex and Gender Information Value Date Recorded Sex Assigned at Not on file Legal Sex Female 4:39 PM CDT Gender Identity Not on file Sexual Orientation Not on file documented as of this encounter Miscellaneous Notes * [employer]ner Conversion Note - Historical ProviderMD - 03/26/2018 5:00 AM CUSTOMER EXPERIENCE LEADER Chart Check - Review Order Profile Entered [...]
--- OUTSIDE RECORDS SUMMARY | 2025-01-08 06:50 | XMS_ITS | Encounter Summary ---
Author Organization [employer] ([place], [place], [place], [place], [place]) Address [address] [place] [address] Care Team Providers Care Addictions Counselor Name Role Phone Unavailable Primary Care Provider Unavailabl e Encounter Details Date Type Department Care Team (Late st Contact Info) Description 03/25/2018 Transcribed Document [facility] [place] [address] [place] [address] ProviderZion MD [address] [place], [place] [phone] Social History Tobacco Use Types Packs/Day Years Used Date Smoking Tobacco: Never Assessed Comments Unknown Sex and Gender Information Value Date Recorded Sex Assigned at Not on file Legal Sex Female 4:39 PM CDT Gender Identity Not on file Sexual Orientation Not on file documented as of this encounter Miscellaneous Notes * Cerner Conversion Note - Historical ProviderMD - 03/25/2018 2:00 AM EDGE GLUE MACHINE TENDER Disc Recordist Details Entered On: 03/25/2018 4:05 EST Performed [...]
--- OUTSIDE RECORDS SUMMARY | 2025-01-08 06:50 | XMS_ITS | Encounter Summary ---
Author Organization [facility] ([place], [place], [place], [place], [place]) Address [address] [place] [address] Care Team Providers Care Advanced Manufacturing Vice President Name Role Phone Unavailable Primary Care Provider Unavailabl e Encounter Details Date Type Department Care Team (Late st Contact Info) Description 03/28/2018 Transcribed Document [facility] [place] [facility] [place] [address] ProviderZion MD [address] [place] [id number] Social History Tobacco Use Types Packs/Day Years Used Date Smoking Tobacco: Never Assessed Comments Unknown Sex and Gender Information Value Date Recorded Sex Assigned at Not on file Legal Sex Female 4:39 PM CDT Gender Identity Not on file Sexual Orientation Not on file documented as of this encounter Miscellaneous Notes * Cerner Conversion Note - Zion ProviderMD - 03/28/2018 7:46 AM LUBE WORKER Patient: ETHAN LOREDO Age: 57 years Sex: [...] Rocephin: 2 Gram, 100 mL/Hr, IV Piggyback, [id number] Tylenol: 650 mg, Oral, Q4H, PRN: Other [...] of motion, Normal strength. Integumentary: Warm, Dry, [place]. Neurologic: Alert, Oriented. Psychiatric: Cooperative, Appropriate mood [...] in 4-[address] Marcano at [facility]. 03/27/18 Options discussed with pt-Definitive Rx would require redo-MV sugery/device explant-reimplant. Surgical risk is high given severe carotid dx. Conservative initial Rx w/ repeat BROCK in 4-6 is reasonable option. CTS to see/EP following. Continue current CV meds. Add Plavix if no surgery. Electronically signed by Jorge Alberto, [facility] Conversion Domestic Helper Cerner at 05/29/2022 8:35 PM CDT documented in this encounter Plan of Treatment Not on file documented as of this encounter Visit Diagnoses Not on filedocumented in this encounter
--- OUTSIDE RECORDS SUMMARY | 2025-01-08 06:50 | XMS_ITS | Encounter Summary ---
Author Organization [employer] ([place], [place], [place], [place], [place]) Address [address] [place] [address] Care Team Providers Care Radiology Ct Technologist Name Role Phone Unavailable Primary Care Provider Unavailabl e Encounter Details Date Type Department Care Team (Late st Contact Info) Description 03/24/2018 Transcribed Document [facility] [place] [address] [place] [address] ProviderZion MD [address] [place] [address] Social History Tobacco Use Types Packs/Day Years Used Date Smoking Tobacco: Never Assessed Comments Unknown Sex and Gender Information Value Date Recorded Sex Assigned at Not on file Legal Sex Female 4:39 PM CDT Gender Identity Not on file Sexual Orientation Not on file documented as of this encounter Miscellaneous Notes * Cerner Conversion Note - Historical ProviderMD - 03/24/2018 1:34 PM HOSPITAL CLEANER Consult Phone Call Documentation Entered On: 03/24/2018 14:54 EST Performed On: 03/24/2018 14:55 EST by MANE CARROLL Phone Call for Consults Consult Phone Call/Page Attempt : First call Consult Reason : Called in Consult on 03/24/18 at 1455 for: +positive blood cultures at [facility]SH perDr. Christian COLETHA - 03/24/2018 14:53 EST Electronically signed by [facility] Conversion Viscosity Tester Cerner at 05/29/2022 8:51 PM CDT documented in this encounter Plan of Treatment Not on file documented as of this encounter Visit Diagnoses Not on filedocumented in this encounter
--- OUTSIDE RECORDS SUMMARY | 2025-01-08 06:50 | XMS_ITS | Clinical Summary ---
Author Organization [employer] ([place], [place], [place], [place], [place]) Address [address] [place] [address] Care Team Providers Care Meat Apprentice Name Role Phone Unavailable Primary Care [...]
--- OUTSIDE RECORDS SUMMARY | 2025-01-08 06:50 | XMS_ITS | Encounter Summary ---
Author Organization [employer] ([place], [place], [place], [place], [place]) Address [address] [place] [address] Care Team Providers Care Internet Database Specialist Name Role Phone Unavailable Primary Care Provider Unavailabl e Encounter Details Date Type Department Care Team (Late st Contact Info) Description 03/28/2018 Transcribed Document [facility] [place] [address] [place] [address] ProviderZion MD [address] [place], [place] [phone] Social History Tobacco Use Types Packs/Day Years Used Date Smoking Tobacco: Never Assessed Comments Unknown Sex and Gender Information Value Date Recorded Sex Assigned at Not on file Legal Sex Female 4:39 PM CDT Gender Identity Not on file Sexual Orientation Not on file documented as of this encounter Miscellaneous Notes * Cerner Conversion Note - Historical ProviderMD - 03/28/2018 2:00 AM TREE TRIMMING LINE TECHNICIAN Health Educator Details Entered On: 03/28/2018 6:03 EST Performed [...]
--- OUTSIDE RECORDS SUMMARY | 2025-01-08 06:50 | XMS_ITS | Encounter Summary ---
Author Organization [employer] ([place], [place], [place], [place], [place]) Address [address] [place] [address] Care Team Providers Care Director Of Physical Therapy Name Role Phone Unavailable Primary Care Provider Unavailabl e Encounter Details Date Type Department Care Team (Late st Contact Info) Description 03/25/2018 Transcribed Document [facility] [place] [facility] [address] ProviderZion MD [address] [place] [id number] Social History Tobacco Use Types Packs/Day Years Used Date Smoking Tobacco: Never Assessed Comments Unknown Sex and Gender Information Value Date Recorded Sex Assigned at Not on file Legal Sex Female 4:39 PM CDT Gender Identity Not on file Sexual Orientation Not on file documented as of this encounter Miscellaneous Notes * Cerner Conversion Note - Zion Alonso MD - 03/25/2018 9:14 AM MANAGER CARGO Patient: ETHAN CRONIN Age: 57 years Sex: Female : 1960 Associated Diagnoses: None Author: CARROLL HIGH MD-INF Basic Information CC: Sepsis bacteremia 03/19/18 4/4 bottles for Group b strep ([facility]) History of Present Illness 57-year-old white female with history of bladder cancer, atrial flutter, pacemaker placement 2016, hypertension, DM2, COPD, pancreatitis, who recently had blood cultures obtained at [facility] on 03/19/18 for fever which were positive in 4 out of 4 bottles for group B Streptococcus. Patient was to start IV antibiotics but was found to have bradycardia and was admitted to [facility] on 03/23/17. I was consulted on 03/25/17. The patient had been started on vancomycin and Rocephin. Urine culture obtained at [facility] was positive for multiple bacteria [...] cefTRIAXone (Rocephin) - 2 Gram, IV Piggyback, [id number], infuse over 30 Minute(s), Routine vancomycin + Sodium Chloride 0.9% intravenous solution 250 m - 750 mg, IV Piggyback, [id number], infuse over 1 Hour(s) Anticoagulant heparin - [...] 11:52 - SUSI BOWMAN RN 2006 Cholecystectomy; (54034). Comments: 02/17/2015 11:52 - SUSI BOWMAN RN 2007 umbilical hernia repair. Social History Social & Psychosocial Habits Tobacco 02/17/2015 Tobacco Use Within Last Twelve Months Cigarettes Smoking Status Current every day smoker Years of Tobacco Use 40 Packs/Tins Daily 1 Smoking Cessation Information Provided Yes . , 3 children, lives in [facility] about 1[place]/2 hours from [place].. Physical Examination VS/Measurements Vitals Signs (last 24 [...] Normal strength, No tenderness. Integumentary: Warm, Dry, [place], No pallor, No rash, Left chest wall [...] No Radiology Results Found Diagnostic Findings: ACC: [id number] ORDER: Culture Blood DATE: 03/23/2018 17:49 SOURCE: Blood SITE: Reports Pre 03/24/2018 23:02 No growth at 1 day. Pre 03/24/2018 16:03 Culture less than 24 Hrs old == [facility]: [id number] ORDER: Culture Blood DATE: 03/23/2018 17:49 SOURCE: Blood SITE: Reports Pre 03/24/2018 23:02 No growth at 1 day. Pre 03/24/2018 16:03 Culture less than 24 Hrs old == . Impression and Plan 1. Group B streptococcus sepsis 03/19/18 in 4 out of 4 blood culture bottles positive at [facility] (spoke to Maurice Spencer, at [facility]). The high-grade bacteremia suggests intravascular source [...]
--- OUTSIDE RECORDS SUMMARY | 2025-01-08 06:50 | XMS_ITS | Clinical Summary ---
Author Organization [facility] Address [facility] [place] [address] Care Team Providers Care Billboard Erector Name Role Phone Pcp, No Primary Care Provider Source Comments This information has been disclosed [...] therelease of HIV test results or diagnoses. [id number] Allergies No known active allergies Medications [...] drink = 0.6 oz pur e alcohol) [facility] Utilities Answer Date Recorded In the past 12 months has e [employer], gas, oil, or water [employer] threatened to shut off services in your [...] any time in the past 12 [facility], were you homeless or living in a senior care (including now)? No 03/05/2024 Comments Unknown Sex [...] - 33 mmol/L 03/09/2024 4:11 AM EST [facility] Anion Gap 10 3 - [...] ORDERABLES Fin al Result Performing Organization Address [facility] Co de Phone Number [facility] [address] [facility] * Protein / creatinine ratio, urine (03/07/2024 11:26 PM EST) Creatinine, Urine 28.30 mg/dL 03/07/2024 11:52 PM EST [facility] Comment:Reference range not established for this test. Total Protein, Ur 52 mg/dL 03/07/2024 11:52 PM EST [facility] Comment:Reference range not established for this test. Prot/Creat Ratio, Ur 1.84 ratio 03/07/2024 11:52 PM EST [facility] Urine 03/07/2024 11:2 6 PM EST 03/07/2024 11:36 PM EST Tate Castro MD URINE ORDERABLES Final R esult Performing Organization Address [facility] Co de Phone Number [facility] [address] * (ABNORMAL) Thyroid Function [place] (03/06/2024 1:44 PM EST) TSH 6.15(H) 0.45 - 4.12 uIU/mL 03/06/2024 2:33 PM EST [facility] Serum 03/06/2024 1:44 PM EST 03/06/2024 1:50 PM EST us Angelo Chaudhry CNP LAB BLOOD ORDERABLES Final Result Performing Organization Address [facility] Co de Phone Number [facility] [address] * (ABNORMAL) Hemoglobin A1c (03/06/2024 5:42 AM EST) Hemoglobin A1C 6.4(H) 4.0 - 5.6 % 03/06/2024 1:13 PM EST [facility] Comment: Hemoglobin A1c Interpretation Guidelines: [...] ORDERABLES Bindu l Result Performing Organization Address City/[facility] Co de Phone Number [facility] [address] from Last 3 Months or Most Recently Relevant to Health Maintenance Insurance [employer] GOLD PLUS MEDICARE [facility] Care Address: [address] [address] [place] [address] Advance Directives For more information, please contact: [phone] Documents on File Type Date Recorded Patient Underground Mining Section Foreman Expl anation Durable Power of Store Sales Manager - scan 03/11/2024 * Full Code (Latest Code Status on File) Date Activated Date Inactivated Comments 03/05/2024 10:20 PM 03/09/2024 11:04 PM Care Teams Billboard Erector Relationship Specialty Start Date End Date Pcp, No [address] [place], [place] [phone] PCP - General 03/05/24
--- OUTSIDE RECORDS SUMMARY | 2025-01-08 06:50 | XMS_ITS | Encounter Summary ---
Author Organization [employer] ([place], [place], [place], [place], [place]) Address [address] [place] [address] Care Team Providers Care Hematology Technologist Name Role Phone Unavailable Primary Care Provider Unavailabl e Encounter Details Date Type Department Care Team (Late st Contact Info) Description 03/28/2018 Transcribed Document [facility] [place] [facility] [place] [address] ProviderZion MD [address] [place] [address] Social History Tobacco Use Types [...] - Historical ProviderMD - 03/28/2018 2:27 PM WORK CAR OPERATOR Care Management Assessment/Plan Entered On: 03/28/2018 14:57 EST Performed On: 03/28/2018 14:27 EST by Ninoska Cuellar Rn-Forest Fire Officer Ed Care Management Note Anticipated Discharge Date : 04/03/2018 14:00 EST Care Management Note : Called [facility] and spoke with Chiquita and updated her on IV abx needs. SHe will check cost and call CM back to see if bed offer is still on the table. CM left VM for Sheri with [facility] to update her, left requesting return phone call. CM updated pt and she appears discouraged that [facility] will not accept her as a pt. She tells CM that she is considering just going home. BLAKE also called Clem with [facility] to argueta abx at home. She states that [facility] may also be able to contract with facility to provide them with abx at their cost. CM faxed info on pt and abx to [facility] f [phone]. CM updated BS RN, Ava. CM will cont to follow. Care Management Note Report : Ninoska Cuellar, Rn-Forest Fire Officer Ed - 03/28/18 14:21:[address] Jones this am and he tells CM that pt is ready for discharge from his standpoint and that ID has a plan in place for IV abx. PT does have a PICC in place. Recieved VM from [facility] with [facility] p [phone] stating they are interested in pt. CM went to BS to speak with pt to discuss bed offers. CM presented bed offers and pt tells CM that she really doesn't want to go to another facility. Pt tells CM that she only wants to go to [facility], as she has been there in the past. [facility] had not make bed offer at this time. CM called and spoke with Gama in admissions at [facility] and she tells CM that per her DON, they do not believe they can meet pt's needs at this time. CM pressed for more information and Gama told CM that she would have DON call her. -CM then spoke with MADELYN Corona at [facility] and she states that pt appears too sick at this time to come to their facility. CM provided her with verbal updates, as well as faxed updates f [phone]. She states they will reevaluate now, knowing [...] pt at this time due to the $[phone] IV rocephin cost through 05/04/[address] Diaz orders. Cm to follow for ongoing d/c planning/needs. Stew Porras, RN - 03/27/18 16:25:12 blayne from [facility] ([phone] ex [phone]) called to make bed offer. bed offers will be presented to pt 03/28. [facility] [phone] Stew Porras, RN - 03/27/18 15:00:29 spoke to ID who states pt maybe ready for dc as early as 03/28. id and attending PA are recommending SNF. spoke with pt and her dtr, jazmine and informed them of suggestion from drs to dc to snf for iv abx. pt and dtr in agreement and ref[place] [facility] [place] [facility] following [place].... [place]. Stew Porras, RN - 03/27/18 10:34:34 [id number] + for BROCK CT consulted and per ID, infection must clear prior to any ant surgical intervention Currnelty on rocephin iv w/bld cx pending Documentation Status Complete : Yes Ninoska Cuellar, Rn-Forest Fire Officer Ed - 03/28/2018 14:27 EST documented in this encounter Plan of Treatment Not on file documented as of this encounter Visit Diagnoses Not on filedocumented in this encounter
--- OUTSIDE RECORDS SUMMARY | 2025-01-08 06:50 | XMS_ITS | Encounter Summary ---
Author Organization [employer] ([place], [place], [place], [place], [place]) Address [address] [place] [address] Care Team Providers Care Levelman Name Role Phone Unavailable Primary Care Provider Unavailabl e Encounter Details Date Type Department Care Team (Late st Contact Info) Description 03/27/2018 Transcribed Document [facility] [place] Medicine [address] [place] [address] ProviderZion MD [address] [place], [place] [phone] Social History Tobacco Use Types Packs/Day Years Used Date Smoking Tobacco: Never Assessed Comments Unknown Sex and Gender Information Value Date Recorded Sex Assigned at Not on file Legal Sex Female 4:39 PM CDT Gender Identity Not on file Sexual Orientation Not on file documented as of this encounter Miscellaneous Notes * Cerner Conversion Note - Historical ProviderMD - 03/27/2018 8:58 AM CABLE ENGINEER OUTSIDE PLANT Consult Phone Call Documentation Entered On: 03/27/2018 [...]
--- OUTSIDE RECORDS SUMMARY | 2025-01-08 06:50 | XMS_ITS | Clinical Summary ---
Author Organization [employer] [facility] Address [address] [place] [address] Care Team Providers Care Gun Profiler Name Role Phone Cosme Davis MD Primary [...] Insurance MEDICARE A & B Care Teams Gun Profiler Relationship Specialty Start Date End Date Cosme Davis MD [address] [facility] [address] ATTN: [place] [address] PCP - General Emergency Medicine 06/04/18
--- OUTSIDE RECORDS SUMMARY | 2025-01-08 06:50 | XMS_ITS | Encounter Summary ---
Author Organization [employer] ([place], [place], [place], [place], [place]) Address [address] [place] [address] Care Team Providers Care Oilfield Plant And Field Operator Name Role Phone Unavailable Primary Care Provider Unavailabl e Encounter Details Date Type Department Care Team (Late st Contact Info) Description 03/27/2018 Transcribed Document [facility] [place] [facility] [place] [address] ProviderZion MD [address] [place] [address] Social History Tobacco Use Types [...] - Historical ProviderMD - 03/27/2018 2:54 PM PATTERN REPAIR PERSON Care Management Assessment/Plan Entered On: 03/27/2018 15:00 [...] and referrlas made via [facility] to the following counties.... [place] [...]
--- OUTSIDE RECORDS SUMMARY | 2025-01-08 06:50 | XMS_ITS | Encounter Summary ---
Author Organization [employer] ([place], [place], [place], [place], [place]) Address [address] [place] [address] Care Team Providers Care Cardio Tech Name Role Phone Unavailable Primary Care Provider Unavailabl e Encounter Details Date Type Department Care Team (Late st Contact Info) Description 03/25/2018 Transcribed Document [facility] [place] Family Medicine [address] [place] [address] ProviderZion MD [address] [place], [place] [phone] Social History Tobacco Use Types Packs/Day Years Used Date Smoking Tobacco: Never Assessed Comments Unknown Sex and Gender Information Value Date Recorded Sex Assigned at Not on file Legal Sex Female 4:39 PM CDT Gender Identity Not on file Sexual Orientation Not on file documented as of this encounter Miscellaneous Notes * Cerner Conversion Note - Zion Alonso MD - 03/25/2018 7:28 AM PROFESSIONAL SERVICES CONSULTANT DATE OF CONSULTATION: 03/24/2018 ELECTROPHYSIOLOGY CONSULTATION REFERRING HOSPITALIST: Omar Nelson M.D. CONSULTING CANE STRIPPER: Jorge Hawkins MD REASON FOR CONSULTATION: Bradycardia. [...] been seen by Dr. Beard in the [facility]. The patient does have a history [...] count of 379. [place] 1.8[place] [address]. Liver enzymes normal. EKG shows biventricular paced [...] CC1: Jorge Hawkins M.D. CC2: Dr. Beard; [place], [place] Electronically signed by Jorge Alberto [facility] Conversion Inside Tester Cerner at 05/29/2022 8:43 PM CDT documented in this encounter Plan of Treatment Not on file documented as of this encounter Visit Diagnoses Not on filedocumented in this encounter
--- OUTSIDE RECORDS SUMMARY | 2025-01-08 06:50 | XMS_ITS | Encounter Summary ---
Author Organization [employer] ([place], [place], [place], [place], [place]) Address [address] [place] [address] Care Team Providers Care Detective Narcotics And Vice Name Role Phone Unavailable Primary Care Provider Unavailabl e Encounter Details Date Type Department Care Team (Late st Contact Info) Description 03/26/2018 Transcribed Document [facility] [place] [address] [place] [address] ProviderZion MD [address] [place] [address] Social History Tobacco Use Types [...] - Historical ProviderMD - 03/26/2018 2:00 AM SOFT SUGAR CUTTER Banquet Line Cook Details Entered On: 03/26/2018 1:20 EST Performed [...]
--- OUTSIDE RECORDS SUMMARY | 2025-01-08 06:50 | XMS_ITS | Encounter Summary ---
Author Organization [employer] ([place], [place], [place], [place], [place]) Address [address] [place] [address] Care Team Providers Care Paperhanger Apprentice Name Role Phone Unavailable Primary Care Provider Unavailabl e Encounter Details Date Type Department Care Team (Late st Contact Info) Description 03/27/2018 Transcribed Document [facility] [place] [facility] [place] [address] ProviderZion MD [address] [place] [phone] Social History Tobacco Use Types Packs/Day Years Used Date Smoking Tobacco: Never Assessed Comments Unknown Sex and Gender Information Value Date Recorded Sex Assigned at Not on file Legal Sex Female 4:39 PM CDT Gender Identity Not on file Sexual Orientation Not on file documented as of this encounter Miscellaneous Notes * Cerner Conversion Note - Historical ProviderMD - 03/27/2018 9:05 AM ABE TEACHER Patient: ETHAN LOREDO Age: 57 Years Sex: [...]
--- OUTSIDE RECORDS SUMMARY | 2025-01-08 06:50 | XMS_ITS | Encounter Summary ---
Author Organization [employer] ([place], [place], [place], [place], [place]) Address [address] [place] [address] Care Team Providers Care Personnel And Payroll Technician Name Role Phone Unavailable Primary Care Provider Unavailabl e Encounter Details Date Type Department Care Team (Late st Contact Info) Description 03/28/2018 Transcribed Document [facility] [place] [address] [place] [address] ProviderZion MD [address] [place], [place] [id number] Social History Tobacco Use Types Packs/Day Years Used Date Smoking Tobacco: Never Assessed Comments Unknown Sex and Gender Information Value Date Recorded Sex Assigned at Not on file Legal Sex Female 4:39 PM CDT Gender Identity Not on file Sexual Orientation Not on file documented as of this encounter Miscellaneous Notes * Cerner Conversion Note - Historical ProviderMD - 03/28/2018 3:56 PM SMALL PIECE CUTTER Care Management Assessment/Plan Entered On: 03/28/2018 16:01 EST Performed On: 03/28/2018 15:56 EST by Ninoska Cuellar Rn-Server Support Technician Ed Care Management Note Anticipated Discharge [...] Care Management Note Report : Ninoska Cuellar Rn-Server Support Technician Ed - 03/28/18 14:57:29 Called [facility] and spoke with Chiquita and updated her on IV abx needs. SHe will check cost and call CM back to see if bed offer is still on the table. CM left for [facility] with [facility] to update her, left requesting return phone call. CM updated pt and she appears discouraged that [facility] will not accept her as a pt. She tells CM that she is considering just going home. CM also called Clem with [facility] to argueta abx at home. [facility] with facility to provide them with abx at their cost. CM faxed info on pt and abx to [facility] f [phone]. CM updated BS RN, Ava. CM will cont to follow. Ninoska Cuellar, Rn-Server Support Technician Ed - 03/28/18 14:21:[address] Jones this and he tells CM that pt is ready for discharge from his standpoint and that ID has a plan in place for IV abx. PT does have a PICC in place. Recieved VM from [facility] with [facility] p [phone] stating they are interested in pt. CM went to BS to speak with pt to discuss bed offers. CM presented bed offers and pt tells CM that she really doesn't want to go to another facility. Pt tells CM that she only wants to go to [facility], as she has been there in the past. [facility] had not make bed offer at this time. BLAKE called and spoke with Gama in admissions at [facility] and she tells CM that per her DON, they do not believe they can meet pt's needs at this time. BLAKE pressed for more information and Gama told CM that she would have DON call her. -BLAKE then spoke with MADELYN Corona at [facility] and she states that pt appears too sick at this time to come to their facility. BLAKE provided her with verbal updates, as well as faxed updates f [phone]. She states they will reevaluate now, knowing abx needs. She asked for bld cx results and CM called microbiology dept and was told that bld cx x2 from 03/23 were still negative, but would not be complete until this evening. CM informed facility of this information. CM then recieved callback from Eleva with admissions who states after rereview, they will not be able to take pt at this time due to the $[phone] IV rocephin cost through 05/04/[address] Diaz orders. Cm to follow for ongoing d/c planning/needs. Stew Porras, RN - 03/27/18 16:25:12 blayne from [facility] ([phone]) called to make bed offer. bed offers will be presented to pt 03/28. dtr will provide transportation[place]yale [phone] Stew Porras, REGULO - 03/27/18 15:00:29 spoke to ID who states pt maybe ready for dc as early as 03/28. id and attending PA are recommending SNF. spoke with pt and her dtr, jazmine and informed them of suggestion from drs to dc to snf for iv abx. pt and dtr in agreement and referrlas made via [facility] [place] the following [place].... [place]. Stew Porras, REGULO - 03/27/18 10:34:34 RRS-43 + for BROCK CT consulted and per ID, infection must clear prior to any ant surgical intervention Currnelty on rocephin iv w/bld cx pending Documentation Status Complete : Yes Ninoska Cuellar, Rn-Server Support Technician Ed - 03/28/2018 15:56 EST documented in this encounter Plan of Treatment Not on file documented as of this encounter Visit Diagnoses Not on filedocumented in this encounter
--- OUTSIDE RECORDS SUMMARY | 2025-01-08 06:50 | XMS_ITS | Encounter Summary ---
Author Organization [employer] ([place], [place], [place], [place], [place]) Address [address] [place] [address] Care Team Providers Care Hybrid Derivatives Trader Name Role Phone Unavailable Primary Care Provider Unavailabl e Encounter Details Date Type Department Care Team (Late st Contact Info) Description 03/27/2018 Transcribed Document [facility] [place] [address] [place] [address] ProviderZion MD [address] [place] [address] Social History Tobacco Use Types [...] - Historical ProviderMD - 03/27/2018 10:33 AM ACCOUNT MANAGER SALES REPRESENTATIVE Care Management Assessment/Plan Entered On: 03/27/2018 10:34 [...] Patient History Note Report : DEEPA GALDAMEZ, Cvir Tech - 03/26/18 17:47:16 Talked w/ this 57 yr old W F transferred here from [facility] w/ bradycardia, positive blood cultures/strep B sepsis bactremia. PMH includes: bladder cancer, CAD s/p CABG, MVR, PPM plcmt (for which pt has had no F/U), pancreatitis, , COPD, DM, HTN, HLD, depression and anxiety. Pt underwent BROCK today due to concern for possible infected pacemaker (report not in yet). She is currently on 2gm IV rocephin, which [facility] says she will need until 04/20/18. Pt lives w/ her estranged spouse at [facility] address, claims she is indep w/ all [...]
--- OUTSIDE RECORDS SUMMARY | 2025-01-08 06:50 | XMS_ITS | Encounter Summary ---
Author Organization [employer] ([place], [place], [place], [place], [place]) Address [address] [place] [address] Care Team Providers Care Pillar Man Name Role Phone Unavailable Primary Care Provider Unavailabl e Encounter Details Date Type Department Care Team (Late st Contact Info) Description 03/26/2018 Transcribed Document [facility] [place] [address] [place] [address] ProviderZion MD [address] [place] [address] Social History Tobacco Use Types Packs/Day Years Used Date Smoking Tobacco: Never Assessed Comments Unknown Sex and Gender Information Value Date Recorded Sex Assigned at Not on file Legal Sex Female 4:39 PM CDT Gender Identity Not on file Sexual Orientation Not on file documented as of this encounter Miscellaneous Notes * Cerner Conversion Note - Historical ProviderMD - 03/26/2018 10:40 AM DIRECTOR OF CATH LAB Patient: ETHAN LOREDO Age: 57 Years Sex: [...]
--- OUTSIDE RECORDS SUMMARY | 2025-01-08 06:50 | XMS_ITS | Encounter Summary ---
Author Organization [employer] ([place], [place], [place], [place], [place]) Address [address] [place] [address] Care Team Providers Care Heater Operator Name Role Phone Unavailable Primary Care Provider Unavailabl e Encounter Details Date Type Department Care Team (Late st Contact Info) Description 03/25/2018 Transcribed Document [facility] [place] [address] [place] [address] ProviderZion MD [address] [place] [address] Social History Tobacco Use Types [...] - Historical ProviderMD - 03/25/2018 5:00 AM DIRECTOR OF KIDS Chart Check - Review Order Profile Entered On: 03/25/2018 4:05 EST Performed On: 03/25/2018 5:00 EST by Carolina Valenzuela RN Chart Check Chart Reviewed Date and Time : 03/25/2018 4:05 EST Carolina Valenzuela RN - 03/25/2018 4:05 EST Electronically signed by Jorge Alberto [facility] Conversion Wire Cutter Cerner at 05/29/2022 8:34 PM CDT documented in this encounter Plan of Treatment Not on file documented as of this encounter Visit Diagnoses Not on filedocumented in this encounter
--- OUTSIDE RECORDS SUMMARY | 2025-01-08 06:50 | XMS_ITS | Encounter Summary ---
Author Organization [employer] ([place], [place], [place], [place], [place]) Address [address] [place] [address] Care Team Providers Care Die Maker Electronic Name Role Phone Unavailable Primary Care Provider Unavailabl e Encounter Details Date Type Department Care Team (Late st Contact Info) Description 03/26/2018 Transcribed Document [facility] [place] [facility] [place] [address] ProviderZion MD [address] [place] [id number] Social History Tobacco Use Types Packs/Day Years Used Date Smoking Tobacco: Never Assessed Comments Unknown Sex and Gender Information Value Date Recorded Sex Assigned at Not on file Legal Sex Female 4:39 PM CDT Gender Identity Not on file Sexual Orientation Not on file documented as of this encounter Miscellaneous Notes * Cerner Conversion Note - Zion Alonso MD - 03/26/2018 10:05 AM BARBERING INSTRUCTOR Patient: ETHAN CRONIN Age: 57 years [...] cefTRIAXone (Rocephin) - 2 Gram, IV Piggyback, [id number], infuse over 30 Minute(s), Routine Anticoagulant heparin [...] Normal strength, No tenderness. Integumentary: Warm, Dry, [place], No pallor, No rash, Left chest wall [...] 10) Troponin <0.015 (FEB 10) , ACC: [id number] ORDER: Culture Blood DATE: 03/23/2018 17:49 SOURCE: Blood SITE: Reports Pre 03/25/2018 23:01 No growth at 2 days. Pre 03/24/2018 23:02 No growth at 1 day. Pre 03/24/2018 16:03 Culture less than 24 Hrs old == ACC: [id number] ORDER: Culture Blood DATE: 03/23/2018 17:49 SOURCE: Blood SITE: Reports Pre 03/25/2018 23:01 No growth at 2 days. Pre 03/24/2018 23:02 No growth at 1 day. Pre 03/24/2018 16:03 Culture less than 24 Hrs old == . Procedure Critical Care - Code Management Assessment: Radiology Results (Last 48 hours) [id number] -- 03/23/2018 17:08 CT Abdomen Pelvis WO [...] [facility] (spoke to Maurice Spencer, at [facility]). The high-grade bacteremia suggests intravascular source including [...]
--- OUTSIDE RECORDS SUMMARY | 2025-01-08 06:50 | XMS_ITS | Encounter Summary ---
Author Organization [employer] ([place], [place], [place], [place], [place]) Address [address] [place] [address] Care Team Providers Care Division Order Analyst Name Role Phone Unavailable Primary Care Provider Unavailabl e Encounter Details Date Type Department Care Team (Late st Contact Info) Description 03/24/2018 Transcribed Document [facility] [place] [address] [place] [address] ProviderZion MD [address] [place] [address] Social History Tobacco Use Types [...] - Historical ProviderMD - 03/24/2018 3:32 PM ROCKBOARD LATHER Event Note Entered On: 03/24/2018 15:32 EST [...]
--- OUTSIDE RECORDS SUMMARY | 2025-01-08 06:50 | XMS_ITS | Encounter Summary ---
Author Organization [employer] ([place], [place], [place], [place], [place]) Address [address] [place] [address] Care Team Providers Care Radial Router Operator Name Role Phone Unavailable Primary Care Provider Unavailabl e Encounter Details Date Type Department Care Team (Late st Contact Info) Description 03/27/2018 Transcribed Document [facility] [place] [facility] [place] [address] ProviderZion MD [address] [place] [phone] Social History Tobacco Use Types Packs/Day Years Used Date Smoking Tobacco: Never Assessed Comments Unknown Sex and Gender Information Value Date Recorded Sex Assigned at Not on file Legal Sex Female 4:39 PM CDT Gender Identity Not on file Sexual Orientation Not on file documented as of this encounter Miscellaneous Notes * Cerner Conversion Note - Zion ProviderMD - 03/27/2018 10:05 AM WOVEN WOOD SHADE ASSEMBLER Patient: ETHAN LOREDO Age: 57 Years Sex: [...]
--- NOTE | 2025-01-08 06:51 | HMH.EDGENADL ---
Discharge Plan Disposition Patient Disposition: Home, Self-Care Prescriptions Prescriptions: New sulfamethoxazole-trimethoprim 800-160 mg tablet 2 tab PO BID 7 Days Qty: 28 0RF clotrimazole 1 % cream 1 applic topical BID 28 Days Qty: 90 0RF No Action (DME) True Metrix Glucose Test Strip Strip See Rx Instructions .ROUTE .MEDSUPPLY Qty: 10 Rx Instructions: As directed (DME) insulin syringe-needle U-100 1 mL 31 gauge x 5/16 syringe See Rx Instructions .ROUTE .MEDSUPPLY Qty: 10 Rx Instructions: As directed (DME) Dexcom G7 Sensor Device See Rx Instructions .ROUTE .MEDSUPPLY Qty: 1 Patient Comments: USE DIRECTED CHANGING EVERY 10 DAYS Rx Instructions: As directed atorvastatin [Lipitor] 40 mg tablet 40 mg PO HS ropinirole 1 mg tablet 1 mg PO HS citalopram 20 mg tablet 20 mg PO HS ondansetron HCl 4 mg tablet 4 mg PO Q6HP PRN (Reason: Nausea And Vomiting) clopidogrel 75 mg tablet 75 mg PO DAILY amiodarone 200 mg tablet 400 mg PO BID polyethylene glycol 3350 [Miralax] 17 gram powder in packet 17 g PO DAILY Metamucil 3.4 gram/5.4 gram powder 1 tbsp PO DAILY albuterol sulfate 90 mcg/actuation HFA aerosol inhaler 2 inh inhalation QID PRN (Reason: shortness of breath or wheezing) 90 Days Qty: 8.5 2RF pantoprazole [Protonix] 40 mg tablet,delayed release (DR/EC) 40 mg PO HS alprazolam 0.25 mg tablet 0.25 mg PO BID Qty: 60 1RF hydrocodone-acetaminophen 5-325 mg tablet 1 tab PO Q6HP PRN (Reason: Moderate Pain (Scale Score 5-6)) Qty: 120 0RF Lokelma 10 gram powder in packet 10 g PO TID 2 Days Qty: 11 2RF Lokelma 10 gram powder in packet 10 g PO DAILY Qty: 30 2RF Rx Instructions: start daily dose after 2 days of TID penicillin V potassium 250 mg tablet 250 mg PO BID cyanocobalamin (vitamin B-12) 100 mcg Tablet 100 mcg PO DAILY folic acid 1 mg Tablet 1 mg PO DAILY mirtazapine 15 mg tablet 15 mg PO HS Pro-Stat AWC 17-100 gram-kcal/30 mL Liquid In Packet 1 ea PO DAILY bumetanide 2 mg tablet 2 mg PO DAILY 30 Days Qty: 30 0RF levofloxacin 750 mg tablet 750 mg PO DAILY Qty: 2 0RF dapagliflozin propanediol [Farxiga] 10 mg tablet 10 mg PO DAILY Qty: 30 0RF midodrine 10 mg tablet 5 mg PO BID 30 Days Qty: 0 0RF Referrals Follow up/Referrals: Jacob Holder MD [Primary Care Provider, Family Practice] - See instructions Activity Restrictions/Add. Instructions Additional Instructions/Restrictions: Please take antibiotics as prescribed for treatment of cellulitis under the breast. It appears that you have intertrigo/Viv infection under the breast as well. Try to keep the area clean and dry is much as possible. Use topical clotrimazole twice a day. Clinical Impressions Clinical Impression: Candidal intertrigo, Cellulitis of right breast Print Language Print Language: Jamaican Discharge ED Provider: Beto Valenzuela General Adult HPI General Chief complaint: PAIN Stated complaint: Breast Pain Time Seen by Provider: 01/08/25 06:45 Mode of Arrival: EMS Source of Information: Patient and EMS Description of Symptoms (Recalled from ER Triage Doc. by RN): EMS states the patients original complaint was her right breast was swollen. States it is not, however she has a rash under her right breast, and pitting edema. Patient states her right breast is enlarged and swollen, patient also has a redened area under her right breast, denies any treatments for the rash. Patient does have pitting edema in her lower extremities. History of Present Illness HPI narrative: 64-year-old female with history of obese today, diabetes, CAD etc. presents for rash under her right breast. She reports that it has been going on for a while but she has been ignoring it. It has been getting more painful recently. No fever at home. She denies any chest pain abdominal pain shortness of breath or other symptoms. Related Data Home Medications ?Medication ?Instructions ?Recorded ?Confirmed blood sugar diagnostic (True #10 ea 04/22/24 12/28/24 Metrix Glucose Test Strip) blood-glucose sensor (Dexcom G7 #1 ea 04/22/24 12/28/24 Sensor device) insulin syringe-needle U-100 1 mL #10 ea 04/22/24 12/28/24 31 gauge x 5/16 pantoprazole 40 mg tablet,delayed 40 mg PO HS 10/07/24 12/28/24 release (Protonix) atorvastatin 40 mg tablet (Lipitor) 40 mg PO HS 10/08/24 12/28/24 citalopram 20 mg tablet 20 mg PO HS 10/08/24 12/28/24 clopidogrel 75 mg tablet 75 mg PO DAILY 10/08/24 12/28/24 ondansetron HCl 4 mg tablet 4 mg PO Q6HP PRN Nausea And 10/08/24 12/28/24 Vomiting ropinirole 1 mg tablet 1 mg PO HS 10/08/24 12/28/24 amino acids-protein hydrolysate 17 1 ea PO DAILY 11/16/24 12/28/24 gram-100 kcal/30 mL liquid packet (Pro-Stat AWC) cyanocobalamin (vitamin B-12) 100 100 mcg PO DAILY 11/16/24 12/28/24 mcg tablet folic acid 1 mg tablet 1 mg PO DAILY 11/16/24 12/28/24 mirtazapine 15 mg tablet 15 mg PO HS 11/16/24 12/28/24 penicillin V potassium 250 mg 250 mg PO BID 11/16/24 12/28/24 tablet amiodarone 200 mg tablet 400 mg PO BID 12/16/24 12/28/24 polyethylene glycol 3350 17 gram 17 g PO DAILY 12/16/24 12/28/24 oral powder packet (Miralax) psyllium husk 3.4 gram/5.4 gram 1 tbsp PO DAILY 12/16/24 12/28/24 oral powder (Metamucil) Previous Rx's ?Medication ?Instructions ?Recorded albuterol sulfate 90 mcg/actuation 2 inh inhalation QID PRN shortness 07/09/24 aerosol inhaler of breath or wheezing 90 days #8.5 grams bumetanide 2 mg tablet 2 mg PO DAILY 30 days #30 tabs 11/18/24 dapagliflozin propanediol 10 mg 10 mg PO DAILY #30 tabs 11/18/24 tablet (Farxiga) levofloxacin 750 mg tablet 750 mg PO DAILY #2 tabs 11/18/24 midodrine 10 mg tablet 5 mg (1/2 x 10 mg) PO BID 30 days 11/18/24 #0 tabs alprazolam 0.25 mg tablet 0.25 mg PO BID #60 tabs 11/24/24 hydrocodone 5 mg-acetaminophen 325 1 tab PO Q6HP PRN Moderate Pain 12/01/24 mg tablet (Scale Score 5-6) #120 tabs sodium zirconium cyclosilicate 10 10 g PO DAILY #30 ea 12/21/24 gram oral powder packet (Lokelma) sodium zirconium cyclosilicate 10 10 g PO TID 2 days #11 ea 12/21/24 gram oral powder packet (Lokelma) clotrimazole 1 % topical cream 1 applic topical BID 4 weeks #90 01/08/25 grams sulfamethoxazole 800 2 tab PO BID 7 days #28 tabs 01/08/25 mg-trimethoprim 160 mg tablet Allergies Allergy/AdvReac Type Severity Reaction Status Date / Time No Known Allergies Allergy Verified 12/28/24 11:05 [facility] Disclaimer: The information contained in this section may have been updated after the patient was seen, as this information can be updated by other users. Medical History Acute hyperkalemia YAO (nonalcoholic steatohepatitis) ICD (implantable cardioverter-defibrillator) discharge CKD (chronic kidney disease) STACY (acute kidney injury) Fracture of pubic ramus Anemia Generalized weakness Diabetes mellitus Pulmonary embolism Neuropathic pain Failure to thrive Shock Impaired ambulation Self-care deficit Marijuana smoker Pulmonary embolism on left Smoking greater than 30 pack years Pulmonary emphysema Chronic kidney disease Atrial fibrillation Acute respiratory failure with hypoxia Pleural effusion on right Chronic endocarditis Acute on chronic HFrEF (heart failure with reduced ejection fraction) Coronary artery disease Right kidney mass Pancreatic mass Dental abscess Pain, dental Hematuria Nausea vomiting and diarrhea Hypovolemia Infection due to extended-spectrum qdtn-hbqmwmbtq-rfnuwzkjg Klebsiella pneumoniae Yeast infection of the vagina STACY (acute kidney injury) labs at baseline Cellulitis Candidiasis Presence of urostomy Vitamin D deficiency Bacterial endocarditis Obesity (BMI 30.0-34.9) Gastroenteritis due to norovirus Bacteremia Pacemaker Bladder cancer Diarrhea UTI (urinary tract infection) Dehydration Abscess of skin or subcutaneous tissue Valvular heart disease Palpitations Myocardial infarction HTN (hypertension), benign Depression CHF (congestive heart failure) Anxiety PAD (peripheral artery disease) Abnormal ankle brachial index (GOMEZ) HHD (hypertensive heart disease) HLD (hyperlipidemia) Carotid bruit Carotid artery stenosis Surgical History S/P ileal conduit (~12/2020) H/O tricuspid valve repair History of insertion of stent into coronary artery bypass graft History of urostomy Hx of cholecystectomy H/O: hysterectomy Hx of tonsillectomy History of mitral valve replacement S/P left atrial appendage ligation AICD (automatic cardioverter/defibrillator) present History of coronary artery bypass graft Family History Other Cancer Diabetes Heart attack Social History Smoking Status: Never smoker second hand exposure: Yes alcohol intake: never substance use type: marijuana current occupational status: disabled Travel in the last 8 weeks?: None household members: family housing: house number of children: 2 current occupational exposures/hazards: No caffeine: Yes Have you lived/traveled outside [place] in past 30 days?: No Contact w/someone who lives/traveled outside US past 30 days?: No Exposure to someone with infectious disease in past 14 days?: No Do you have a fever (greater than 100.4 F or 38 C)?: No Have you tested positive for COVID-19?: No Exposed to someone with COVID-19 in past 14 days?: No Do you have a sore throat?: No Do you have a cough?: No Do you have any weakness?: No Do you have any diarrhea?: No Are you experiencing any unusual bleeding?: No Do you have any muscle aches/pain?: No Do you have any abdominal pain?: No Are you experiencing loss of taste or smell?: No Other Medical History Have you received the Flu Vaccine for this season: No Have you received the Pneumonia Vaccine: Yes ROS Obtained: Yes All systems reviewed & no additional complaints except as documented Physical Exam General General appearance: alert and in no apparent distress Head Head exam: atraumatic and normocephalic Eye Eye exam: Present normal appearance, PERRL and EOMI ENT ENT exam: Present normal oropharynx and normal external ear exam Neck Neck exam: Present normal inspection and full ROM Chest Chest inspection: Present symmetric chest wall rise and other (Erythema and irritation under the right breast consistent with intertrigo); Absent tenderness Respiratory Respiratory exam: Present normal lung sounds bilaterally; Absent respiratory distress Cardiovascular Cardiovascular exam: Present regular rate and normal rhythm Abdominal Exam Abdominal exam: Present soft and other (Urostomy in place); Absent distention, tenderness or guarding Extremities Exam Extremities exam: Present normal inspection and edema; Absent joint swelling Back Exam Back exam: Present normal inspection; Absent tenderness Neurological Exam Neurological exam: Present alert and oriented X3; Absent motor sensory deficit Psychiatric Psychiatric exam: Present normal affect and normal mood Skin Skin exam: Present warm, dry and normal color Lymphatic Lymphatic Findings: no adenopathy Medical Decision Making Medical Records Medical records reviewed: Yes I reviewed the patient's medical records. Screening: Per USPSTF and CDC recommendations, given the prevalence of disease in our region, it is our hospital?s policy to screen for HIV and viral Hepatitis for all patients aged 18 and over and those with ongoing risk factors. [place] Inquiry Pt receiving controlled substance: No Amdaor was queried for this patient: No Vital Signs: 01/08/25 06:42 01/08/25 06:47 01/08/25 06:57 Temperature 97.9 F 97.9 F 97.8 F Temperature Source Oral Oral Oral Pulse Rate 74 71 Pulse Rate [Right] 74 Respiratory Rate 18 18 18 Blood Pressure 128/78 132/78 Blood Pressure [Right Arm] 129/78 Blood Pressure Mean [Right Arm] 95 Blood Pressure Source Blood Pressure Position 02 Sat by Pulse Oximetry 98 98 Oxygen Delivery Method Room Air Room Air Room Air 01/08/25 08:14 Temperature 98.2 F Temperature Source Oral Pulse Rate 87 Pulse Rate [Right] Respiratory Rate 18 Blood Pressure 123/74 Blood Pressure [Right Arm] Blood Pressure Mean [Right Arm] Blood Pressure Source Automatic Cuff Blood Pressure Position Sitting 02 Sat by Pulse Oximetry Oxygen Delivery Method Room Air Lab Data Lab results reviewed: Yes I reviewed the patient's lab results. Orders (Tests/Meds): ED MEDICATIONS Discontinued Medications Generic Name Dose Route Start Last Admin Trade Name Freq PRN Reason Stop Dose Admin Clotrimazole 15 gm 01/08/25 06:52 01/08/25 07:00 Clotrimazole 1% Cream 15gm Tube TP 01/08/25 06:53 Not Given BID ONE Trimethoprim/Sulfamethoxazole 2 each 01/08/25 06:51 01/08/25 06:59 Sulfa/Trimethoprim 1 Tablet PO 01/08/25 06:52 2 each ONCE ONE Administration Medical Decision Narrative: 64-year-old female with extensive past medical history presents for rash and irritation under her right breast. History was obtained via interactive discussion with patient. On arrival, patient is [afebrile, hemodynamically stable, satting appropriately, alert, oriented x4, GCS 15], moving all extremities spontaneously. Full physical exam performed and significant for rash and irritation of the right breast. No evidence of inflammatory malignancy, no palpable abscess. Presentation is most consistent with Viv intertrigo and surrounding cellulitis. These findings were communicated to patient and she was initiated on Bactrim for cellulitis and clotrimazole cream for intertrigo. Wound care instructions were given. She was discharged in stable condition. Procedures Risk/Benefits of Procedure(s) Were Explained: Yes Critical Care Critical Care Time Critical Care Time: No
--- OUTSIDE RECORDS SUMMARY | 2025-01-08 06:51 | XMS_ITS | Encounter Summary ---
Author Organization [employer] ([place], [place], [place], [place], [place]) Address [address] [place] [address] Care Team Providers Care Chore Worker Name Role Phone Unavailable Primary Care Provider Unavailabl e Encounter Details Date Type Department Care Team (Late st Contact Info) Description 03/29/2018 Transcribed Document [facility] Radiology [address] [place] [address] [place] [address] [place] [address] Social History Tobacco Use Types Packs/Day [...] Rocephin: 2 Gram, 100 mL/Hr, IV Piggyback, [id number] Tylenol: 650 mg, Oral, Q4H, PRN: Other [...] 0 Refill(s) Rocephin: 2 Gram, IV Piggyback, [id number], 0 Refill(s) carvedilol 3.125 mg oral tablet: [...] At Bedtime Rocephin 2 Gram, IV Piggyback, [id number] , Medications (26) Active Scheduled: (14) aspirin EC 81 mg tab 81 mg 1 Tab, Oral, Daily carvedilol 3.125 mg tab 3.125 mg 1 Tab, Oral, Daily cefTRIAXone 2 Gram, IV Piggyback, [id number] citalopram 20 mg tab 20 mg 1 [...] - Coronary artery disease / SNOMED CT 6660708977 / Confirmed Cardiomyopathy / SNOMED CT 301438080 / Confirmed HLD - Hyperlipidemia / SNOMED CT 410027141 / Confirmed HTN - Hypertension / SNOMED CT 8510352507 / Confirmed, Active Problems (14) Anxiety Atrial [...] to rehab when bed available. Discussed with caser. documented in this encounter Plan of Treatment Not on file documented as of this encounter Visit Diagnoses Not on filedocumented in this encounter
--- OUTSIDE RECORDS SUMMARY | 2025-01-08 06:51 | XMS_ITS | Encounter Summary ---
Author Organization [employer] ([place], [place], [place], [place], [place]) Address [address] [place] [address] Care Team Providers Care Oracle Soa Consultant Name Role Phone Unavailable Primary Care Provider Unavailabl e Encounter Details Date Type Department Care Team (Late st Contact Info) Description 03/23/2018 Transcribed Document [facility] [place] [address] [place] [address] ProviderZion MD [address] [place] [address] Social History Tobacco Use Types [...] - Historical ProviderMD - 03/23/2018 5:28 PM FIBROUS WALLBOARD INSPECTOR Admission History, Adult Entered On: 03/23/2018 17:38 [...] #2 Relationship : sister Primary Language : Afghan Preferred Communication Mode : Verbal Communication Barrier [...] Scale Risk Level : 25-45 Medium Risk [place] Fall Interventions : Adequate lighting, Assistive devices within reach, Bed in low position, Call device within reach, Fall prevention handout/education per facility policy, Hourly comfort/safety rounds, Non-slip footwear, Personal items within reach, Reinforced to call for assistance before getting out of bed, Room free of clutter/spills, Upper side-rails up, Wheels locked, Wires/Cords secured Demetri rArington Rn - 03/23/2018 17:28 EST Health Histories [...] Source : Stated Height Entry Format : [place] Height, Feet : 5 ft(Converted to: 152 [...] Body Mass Index : 31.4 kg/m2 (HI) [place] Body Weight : 47 kg Demetri Arrington [...] 17:28 EST Electronically signed by Jorge Alberto, [facility] Conversion Director Organizational Cerner at 05/29/2022 8:46 PM CDT documented in this encounter Plan of Treatment Not on file documented as of this encounter Visit Diagnoses Not on filedocumented in this encounter
--- OUTSIDE RECORDS SUMMARY | 2025-01-08 06:51 | XMS_ITS | Encounter Summary ---
Author Organization [employer] ([place], [place], [place], [place], [place]) Address [address] [place] [address] Care Team Providers Care Pottery Striper Name Role Phone Unavailable Primary Care Provider Unavailabl e Encounter Details Date Type Department Care Team (Late st Contact Info) Description 03/29/2018 Transcribed Document [facility] [place] [facility] [place] [address] ProviderZion MD [address] [place] [phone] Social History Tobacco Use Types Packs/Day Years Used Date Smoking Tobacco: Never Assessed Comments Unknown Sex and Gender Information Value Date Recorded Sex Assigned at Not on file Legal Sex Female 4:39 PM CDT Gender Identity Not on file Sexual Orientation Not on file documented as of this encounter Miscellaneous Notes * Cerner Conversion Note - Zion ProviderMD - 03/29/2018 1:35 PM RESIDENTIAL INSURANCE INSPECTOR Patient: ETHAN LOREDO Age: 57 years Sex: [...] Rocephin: 2 Gram, 100 mL/Hr, IV Piggyback, [id number] Tylenol: 650 mg, Oral, Q4H, PRN: Other [...] 0 Refill(s) Rocephin: 2 Gram, IV Piggyback, [id number], 0 Refill(s) carvedilol 3.125 mg oral tablet: [...] At Bedtime Rocephin 2 Gram, IV Piggyback, [id number] , Medications (25) Active Scheduled: (13) aspirin EC 81 mg tab 81 mg 1 Tab, Oral, Daily carvedilol 3.125 mg tab 3.125 mg 1 Tab, Oral, Daily cefTRIAXone 2 Gram, IV Piggyback, H94SEsd citalopram 20 mg tab 20 mg 1 [...] - Coronary artery disease / SNOMED CT 9562465529 / Confirmed Cardiomyopathy / SNOMED CT 404660386 / Confirmed HLD - Hyperlipidemia / SNOMED CT 431561770 / Confirmed HTN - Hypertension / SNOMED CT 3485420346 / Confirmed Resolved: COPD - Chronic obstructive pulmonary disease / SNOMED CT 880597751, Active Problems (14) Anxiety Atrial flutter Bladder [...] 03/29/2018 06:25 Blood Urea Nitrogen 53 mg/dL [place] 03/29/2018 06:25 Glucose Level 97 mg/dL 03/29/2018 06:25 Calcium Level 9.4 mg/dL 03/29/2018 06:25 Impression and Plan EP status ok. Inc bun/cr- dc lisinopril. On No diuretics Electronically signed by Vinayak Azul Conversion Electrical Parts Reconditioner Cerner at 05/29/2022 8:48 PM CDT documented in this encounter Plan of Treatment Not on file documented as of this encounter Visit Diagnoses Not on filedocumented in this encounter
--- OUTSIDE RECORDS SUMMARY | 2025-01-08 06:51 | XMS_ITS | Encounter Summary ---
Author Organization [employer] ([place], [place], [place], [place], [place]) Address [address] [place] [address] Care Team Providers Care Cattle Dealer Name Role Phone Unavailable Primary Care Provider Unavailabl e Encounter Details Date Type Department Care Team (Late st Contact Info) Description 03/23/2018 Transcribed Document [facility] [place] [address] [place] [address] ProviderZion MD [address] [place] [address] Social History Tobacco Use Types [...] - Historical ProviderMD - 03/23/2018 5:16 PM WINDOWS INFRASTRUCTURE ENGINEER Event Note Entered On: 03/23/2018 17:17 EST Performed On: 03/23/2018 17:16 EST by Demetri Arrington, Rn Event Note Event Date/Time : 03/23/2018 17:16 EST Description of Event : patient to rm # [address] Kristen Nelson notified Demetri Arrington, Rn - 03/23/2018 17:16 EST Electronically signed by Jorge Alberto [facility] Conversion Pipe Fitter Gas Pipe Cerner at 05/29/2022 8:41 PM CDT documented in this encounter Plan of Treatment Not on file documented as of this encounter Visit Diagnoses Not on filedocumented in this encounter
--- OUTSIDE RECORDS SUMMARY | 2025-01-08 06:51 | XMS_ITS | Encounter Summary ---
Author Organization [employer] ([place], [place], [place], [place], [place]) Address [address] [place] [address] Care Team Providers Care Call Center Consultant Name Role Phone Unavailable Primary Care Provider Unavailabl e Encounter Details Date Type Department Care Team (Late st Contact Info) Description 03/23/2018 Transcribed Document [facility] [place] [address] [place] [address] ProviderZion MD [address] [place], [place] [phone] Social History Tobacco Use Types Packs/Day Years Used Date Smoking Tobacco: Never Assessed Comments Unknown Sex and Gender Information Value Date Recorded Sex Assigned at Not on file Legal Sex Female 4:39 PM CDT Gender Identity Not on file Sexual Orientation Not on file documented as of this encounter Miscellaneous Notes * Cerner Conversion Note - Zion ProviderMD - 03/23/2018 6:37 PM RUBBER AND POUNDER Patient: ETHAN CRONIN Age: 57 years Sex: Female : 1960 Associated Diagnoses: None Author: Anastacia Roth, Pharm.D.-Resident HPI: 57 year old female transferred from [facility] due to bradycardia during infusion. Pt has hx of CAD, CABG/pacemaker 3 years ago, DM, HTN, and [place]. Pt also has hx of bacteremia and was on antibitoics outpatient and pt cannot confirm what abx she was on. Pharmacist called [facility] and confirmed that pt did not [...] will continue to follow Jameson SummersD PGY-1 Lawnmower Mechanic [phone] documented in this encounter Plan of Treatment Not on file documented as of this encounter Visit Diagnoses Not on filedocumented in this encounter
--- OUTSIDE RECORDS SUMMARY | 2025-01-08 06:51 | XMS_ITS | Encounter Summary ---
Author Organization [employer] ([place], [place], [place], [place], [place]) Address [address] [place] [address] Care Team Providers Care Planer Operator Name Role Phone Unavailable Primary Care Provider Unavailabl e Encounter Details Date Type Department Care Team (Late st Contact Info) Description 05/07/2018 Transcribed Document [facility] [place] [address] [place] [address] ProviderZion MD [address] [place] [address] Social History Tobacco Use [...] EDT Performed On: 05/07/2018 11:33 EDT by GALYA CASE RN Height and Weight, Clinical Dosing Height Source : Stated Height Entry Format : [place] Height, Feet : 5 ft(Converted to: 152 cm, 60 Inch) Height, Inches : 1 Inch(Converted to: 0 ft 1 Inch, 2.54 cm) Clinical Height : 154.94 cm Weight Source : Standing scale Weight Entry Format : [place] Clinical Dosing Weight : 74.09 kg Weight, Pounds : 163 lb Body Surface Area (BSA) : 1.73 m2 Body Mass Index : 30.9 kg/m2 (HI) [place] Body Weight : 47 kg GAYLA CASE [...] : daughter Emergency Contact #1 Relationship : [phone] Emergency Contact #2 : . Emergency Contact #2 Phone Number : . Emergency Contact #2 Relationship : . Primary Language : [place] Islander Preferred Communication Mode : Verbal Communication Barrier [...] Scale Risk Level : 25-45 Medium Risk [place] Fall Interventions : Adequate lighting, Assistive devices within reach, Personal items within reach, Reinforced to call for assistance before getting out of bed GAYLA CASE RN - 05/07/2018 11:33 EDT Valuables and Belongings Valuables and Belongings : Clothing Clothing : Common streetwear Clothing Disposition : Bedside, With family EVIEGAYLA RN - 05/07/2018 11:33 EDT Electronically signed by Jorge Alberto [facility] Conversion Oxygen Therapy Teacher Cerner at 05/29/2022 8:46 PM CDT documented in this encounter Plan of Treatment Not on file documented as of this encounter Visit Diagnoses Not on filedocumented in this encounter
--- OUTSIDE RECORDS SUMMARY | 2025-01-08 06:51 | XMS_ITS | Encounter Summary ---
Author Organization [employer] ([place], [place], [place], [place], [place]) Address [address] [place] [address] Care Team Providers Care Teacher Early Childhood Development Name Role Phone Unavailable Primary Care Provider Unavailabl e Encounter Details Date Type Department Care Team (Late st Contact Info) Description 03/23/2018 Transcribed Document [facility] [place] [address] [place] [address] ProviderZion MD [address] [place], [place] [phone] Social History Tobacco Use Types Packs/Day Years Used Date Smoking Tobacco: Never Assessed Comments Unknown Sex and Gender Information Value Date Recorded Sex Assigned at Not on file Legal Sex Female 4:39 PM CDT Gender Identity Not on file Sexual Orientation Not on file documented as of this encounter Miscellaneous Notes * [employer]ner Conversion Note - Historical ProviderMD - 03/23/2018 9:00 AM GUIDEMAN Consult Phone Call Documentation Entered On: 03/23/2018 [...]
--- OUTSIDE RECORDS SUMMARY | 2025-01-08 06:51 | XMS_ITS | Encounter Summary ---
Author Organization [employer] ([place], [place], [place], [place], [place]) Address [address] [place] [address] Care Team Providers Care Event Host Name Role Phone Unavailable Primary Care Provider Unavailabl e Encounter Details Date Type Department Care Team (Late st Contact Info) Description 03/29/2018 Transcribed Document [facility] [address] [place] [address] ProviderZion MD [address], [place] [id number] Social History Tobacco Use Types Packs/Day Years Used Date Smoking Tobacco: Never Assessed Comments Unknown Sex and Gender Information Value Date Recorded Sex Assigned at Not on file Legal Sex Female 4:39 PM CDT Gender Identity Not on file Sexual Orientation Not on file documented as of this encounter Miscellaneous Notes * Cerner Conversion Note - Historical ProviderMD - 03/29/2018 1:20 PM FILLING LAYER UP Care Management Assessment/Plan Entered On: 03/29/2018 13:22 EST Performed On: 03/29/2018 13:20 EST by Odalys Bush Rn-Channeler RunnerMechanical Engineering Director Note Anticipated Discharge Date : 03/30/2018 14:00 EST Care Management Note : Confirmed with [facility] that patient can transfer today [phone]; [phone]. Spoke with patient's daughter Jazmine [phone] who plans to transport[address] Dr. Hamilton advised and dishcarge pharmacy aware. Patient should be ready to transport by 15:00. Care Management Note Report : Ninoska Cuellar, Rn-Channeler Runner Ed - 03/28/18 20:23:22 CM faxed orders to [facility] for IV abx f [phone] per orders. CM will need to call [facility] to notify them of final d/c plan per MD orders p [phone]. CM to follow for ongoing d/c planning/needs. Ninoska Cuellar, Rn-Channeler Runner Ed - 03/28/18 18:12:15 CM recieved call from Gama at [facility] stating they can take pt at their facility, but not until Saturday, as they now have an agreement with [facility]. CM then spoke with Edie from [facility] and she again confirms they can accept pt at their facility tomorrow. CM updated pt and now pt is agreeable to go to [facility]. She also gave CM permission to speak with Jazmine joshi by phone p [phone]. CM spoke with Jazmine and she is agreeable with plan for [facility], stating its much closer to them, approx 30 min. Pt tells CM that her PCP, Dr. Davis had told her that she was not able to do IV abx from home. Discharge plan will be to go to [facility] in the am. CM updated Dr. Stauffer and he reports he will notify [facility] for tomorrow. CM will cont to follow for ongoing d/c planning/needs. Ninoska Cuellar, Rn-Channeler Runner Ed - 03/28/18 16:01:02 [facility] Clem states home cost for Rocephin is $3.70/wk. She states they may be able to contract with SNF to provide abx at pt's cost. She asked CM to have SNF call Paulo at their office to see about arranging. CM called MADELYN Corona with [facility] and [facility]. Updated BS RNAva. CM will cont to follow. Ninoska Cuellar, Rn-Channeler Runner Ed - 03/28/18 14:57:29 Called [facility] and spoke with Chiquita and updated her on IV abx needs. SHe will check cost and call CM back to see if bed offer is still on the table. CM left for Sheri with [facility] to update her, left requesting return phone call. CM updated pt and she appears discouraged that [facility] will not accept her as a pt. She tells CM that she is considering just going home. BLAKE also called Clem with [facility] to argueta abx at home. She states that [facility] may also be able to contract with facility to provide them with abx at their cost. CM faxed info on pt and abx to [facility] f [phone]. CM updated BS RN, Ava. CM will cont to follow. Ninoska Cuellar, Rn-Channeler Runner Ed - 03/28/18 14:21:[address] Robert bradley and he tells CM that pt is ready for discharge from his standpoint and that ID has a plan in place for IV abx. PT does have a PICC in place. Recieved VM from [facility] with [facility] p [phone] stating they are interested in pt. CM went to BS to speak with pt to discuss bed offers. CM presented bed offers and pt tells CM that she really doesn't want to go to another facility. Pt tells CM that she only wants to go to [facility], as she has been there in the past. [facility] had not make bed offer at this [...] updates, as well as faxed updates f [phone]. She states they will reevaluate now, knowing [...] pt at this time due to the $5337-3147 IV rocephin cost through 05/04/[address] Diaz orders. Cm to follow for ongoing d/c planning/needs. Stew Porras, REGULO - 03/27/18 16:25:12 edie from [facility] ([facility] ex [phone]) called to make bed offer. bed offers will be presented to pt 03/28. [facility] [phone] Stew Porras, RN - 03/27/18 15:00:29 spoke to ID who states pt maybe ready for dc as early as 03/28. id and attending PA are recommending SNF. spoke with pt and her dtr, jazmine and informed them of suggestion from drs to dc to snf for iv abx. pt and dtr in agreement and referrlas made via [facility] to the following counties.... [place]. Stew Porras, REGULO - 03/27/18 10:34:34 RRS-43 + for [facility]CO[facility] CT consulted and per ID, infection must clear prior to any ant surgical intervention Currnelty on rocephin iv w/bld cx pending Documentation Status Complete : Yes Odalys Bush, Rn-Channeler Runner - 03/29/2018 13:20 EST Electronically signed by Jorge Alberto [facility] Conversion Testing Director Cerner at 05/29/2022 8:48 PM CDT documented in this encounter Plan of Treatment Not on file documented as of this encounter Visit Diagnoses Not on filedocumented in this encounter
--- OUTSIDE RECORDS SUMMARY | 2025-01-08 06:51 | XMS_ITS | Encounter Summary ---
Author Organization [employer] ([place], [place], [place], [place], [place]) Address [address] [place] [address] Care Team Providers Care Acrobatic Dancer Name Role Phone Unavailable Primary Care Provider Unavailabl e Encounter Details Date Type Department Care Team (Late st Contact Info) Description 03/23/2018 Transcribed Document [facility] [address] [place] [address] ProviderZion MD [address] [place] [id number] Social History Tobacco Use Types Packs/Day Years Used Date Smoking Tobacco: Never Assessed Comments Unknown Sex and Gender Information Value Date Recorded Sex Assigned at Not on file Legal Sex Female 4:39 PM CDT Gender Identity Not on file Sexual Orientation Not on file documented as of this encounter Miscellaneous Notes * Cerner Conversion Note - Historical ProviderMD - 03/23/2018 5:54 PM DIRECTOR AIRPORT OPERATIONS Care Management Assessment/Plan Entered On: 03/26/2018 17:47 [...] yr old W F transferred here from [facility] w/ bradycardia, positive blood cultures/strep B sepsis bactremia. PMH includes: bladder cancer, CAD s/p CABG, MVR, PPM plcmt (for which pt has had no F/U), pancreatitis, , COPD, DM, HTN, HLD, depression and anxiety. Pt underwent BROCK today due to concern for possible infected pacemaker (report not in yet). She is currently on 2gm IV rocephin, which [facility] says she will need until 04/20/18. [facility], claims she is indep w/ all activities. D/C plan pending outcome of possible pacer removal, may well be good [facility] candidate. She denies any needs now, CM will cont to follow. DEEPA GALDAMEZ, Mounter Sousaphones - 03/26/2018 17:36 EST Electronically signed by Vinayak Azul Conversion Door To Door Sales Representative Cerner at 05/29/2022 8:54 PM CDT documented in this encounter Plan of Treatment Not on file documented as of this encounter Visit Diagnoses Not on filedocumented in this encounter
--- OUTSIDE RECORDS SUMMARY | 2025-01-08 06:51 | XMS_ITS | Clinical Summary ---
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 Name Role Phone Cosme Davis MD Primary Care Provider [phone] Allergies No known active allergies Medications * [...] MG EC tablet 4 Active HYDROcodone-ina taminophen ([place]) 5-325 MG tablet 5 Active insulin syringe-needle [...] - 11/13/2024 11:59 PM EDT Hospital Encounter [facility] [address] 1st [place] [address] Pain in pelvis Discharge Disposition: Home or Self Care 11/13/2024 11:20 AM EDT Office Visit [facility] [address], [address]st [address] [place] [address] Paulo Marquis MD Pain in pelvis (Primary Dx) 11/13/2024 Travel 10/19/2024 Travel 10/18/2024 Travel 10/16/2024 Travel 10/14/2024 Travel 10/13/2024 Travel 10/12/2024 Orders Only External Location [address] [place] [address] Tito Madrid MD 10/12/2024 Orders Only External Location [address] [place] [address] Tito Madrid MD 10/12/2024 Orders Only External Location [address] [place] [address] Tito Madrid MD 10/12/2024 Travel from Last [...] and Family Not on file 10/13/2024 Attends [employer] Not on file 10/13 Active Member [...] in the past 12 m [facility], were you homeless or living in a correction (including now)? No 10/13/2024 [facility] Utilities Answer Date Recorded In the past [...] EST Appointment [facility] [address] [place] [address] 01/21/2025 2:00 PM EST Appointment [facility] [address] 5th Floor [address] [place] [address] 01/21/2025 2:40 PM EST Office Visit [facility] [address] 5th Floor [address] [place] [address] Jose Rosario MD [address] [facility] [address] [place] [address] Health Maintenance Due Date Last Done Comments [facility]-Depression Screening 1960 [facility]-Medicare Annual Wellness (AWV) 1960 [facility]-/Child/Adol SDOH Screenings 1960 [id number] Vaccine (#1) 06/04/1967 Diabetes: Dental Exam 1972 [...] HORMONE (ACTH) Routine 10/16/2024 8:11 AM EDT IA CRITICAL CARE, E/M 30-74 MINUTES Routine 10/16/2024 [...] EDT CORTISOL Routine 10/15/2024 8:29 AM EDT IA CRITICAL CARE, E/M 30-74 MINUTES Routine 10/15/2024 [...] KNOWN SYPHILIS) Routine 10/14/2024 9:44 AM EDT IA CRITICAL CARE, E/M 30-74 MINUTES Routine 10/14/2024 8:59 AM EDT Closed fracture of ramus of right pubis, initial encounter ([facility]) Shock ([facility]) XR CHEST 1 VIEW STAT [...] Routine 10/13/2024 9:26 AM EDT Shock (CMS/HCC) IA INSERT NON-TUNNEL CV CATH Routine 10/13/2024 9:26 AM EDT Shock (CMS/HCC) XR CHEST 1 VIEW STAT 10/13/2024 9:25 AM EDT HC INSERT CATH,ART,PERCUT,SHORTTERM Routine 10/13/2024 9:09 AM EDT Shock (CMS/HCC) IA INSERT CATH,ART,PERCUT,SHORTTERM Routine 10/13/2024 9:09 AM EDT [...] iliac wing fracture not well-seen. Procedure Note Thoams Kunz MD - 11/13/2024 CLINICAL INDICATION: pain [...] of87 resultswithin the time period is included. [facility] POCT Glucose 251(H) 74 - 99 mg/dL [...] Comment 10/30/2024 12:01 PM EDT HEALTHCARE LAB Manager Hydraulic ID Jessika Schneider [id number] 12:01 PM EDT HEALTHCARE LAB Device ID [id number] 10/30/2024 12:01 PM EDT HEALTHCARE LAB Specimen Type POC Capillary 10/30/2024 12:01 PM EDT HEALTHCARE LAB Blood Capillary blood specimen / Unknown 10/30/2024 11:58 AM EDT 10/30/2024 12:01 PM EDT us Tiffany Patten DO LAB POINT OF CARE TE ST DOCKED DEVICE UNSOLICITED RESULTS Final Result Performing Organization Address City/State/[facility] Co de Phone Number HEALTHCARE LAB [address] [place] [address] * (ABNORMAL) CBC W/O Differential (10/28/2024 3:43 AM EDT) Only the most recent of4 resultswithin the time period is included. [facility] WBC Count 9.69 3.70 - 10.30 10*3/uL LAB HEMATOLOGY METHOD 10/28/2024 4:21 AM EDT [facility] RBC Count 2.95(L) 3.90 - 5.20 10*6/uL LAB HEMATOLOGY METHOD 10/28/2024 4:21 AM EDT [facility] HGB 8.3(L) 11.2 - 15.7 g/dL LAB HEMATOLOGY METHOD 10/28/2024 4:21 AM EDT [facility] HCT 27.0(L) 34.0 - 45.0 % LAB HEMATOLOGY METHOD 10/28/2024 4:21 AM EDT [facility] Platelet Count 363 155 - 369 10*3/uL LAB HEMATOLOGY METHOD 10/28/2024 4:21 AM EDT [facility] MCV 92 79 - 98 fL LAB HEMATOLOGY METHOD 10/28/2024 4:21 AM EDT [facility] MCH 28.1 26.0 - 32.0 pg LAB HEMATOLOGY METHOD 10/28/2024 4:21 AM EDT [facility] MCHC 30.7 30.7 - 35.5 g/dL LAB HEMATOLOGY METHOD 10/28/2024 4:21 AM EDT [facility] RDW 24.8(H) 11.5 - 14.5 % LAB HEMATOLOGY METHOD 10/28/2024 4:21 AM EDT [facility] MPV 11.9 8.8 - 12.5 fL LAB HEMATOLOGY METHOD 10/28/2024 4:21 AM EDT [facility] nRBC 0.0 <=0.0 per 100 WBCs LAB HEMATOLOGY METHOD 10/28/2024 4:21 AM EDT [facility] Blood Venous blood specimen / Unknown Venipuncture / Unknown 10/28/2024 3:43 AM EDT 10/28/2024 4:13 AM EDT Tiffany Patten LAB BLOOD ORDERABLES Final Re sult Performing Organization Address City/[facility] Co de Phone Number HEALTHCARE LAB [address] [place] [address] * Magnesium, Plasma (10/28/2024 3:43 AM EDT) Only the most recent of5 resultswithin the time period is included. Magnesium, Plasma 2.2 1.9 - 2.4 mg/dL 10/28/2024 4:42 AM EDT HEALTHCARE LAB Blood Venous blood specimen / Unknown Venipuncture / Unknown 10/28/2024 3:43 AM EDT 10/28/2024 4:13 AM EDT Tiffany Patten DO LAB BLOOD ORDERABLES Final Re sult [facility]ARE [facility] [address] [place] [address] * (ABNORMAL) Renal Function Panel, Plasma (10/28/2024 3:43 AM EDT) [facility] Glucose, Plasma 276(H) 74 - 99 mg/dL 10/28/2024 4:42 AM EDT [facility] BUN, Plasma 89(H) 8 - 23 mg/dL 10/28/2024 4:42 AM EDT [facility] Creatinine, Plasma 2.19(H) 0.60 - 1.10 mg/dL 10/28/2024 4:42 AM EDT [facility] BUN/Creatinine Ratio 41 10/28/2024 4:42 AM EDT [facility] Sodium, Plasma 138 136 - 145 mmol/L 10/28/2024 4:42 AM EDT [facility] Potassium, Plasma 5.1(H) 3.6 - 4.9 mmol/L 10/28/2024 4:42 AM EDT [facility] Chloride, Plasma 102 97 - 107 mmol/L 10/28/2024 4:42 AM EDT [facility] CO2, Plasma 25 22 - 29 mmol/L 10/28/2024 4:42 AM EDT [facility] Anion Gap 11 6 - 16 mmol/L 10/28/2024 4:42 AM EDT [facility] Total Calcium, Plasma 8.9 8.9 - 10.2 mg/dL 10/28/2024 4:42 AM EDT [facility] Phosphorus, Plasma 2.8 2.5 - 4.5 mg/dL 10/28/2024 4:42 AM EDT [facility] Albumin, Plasma 3.0(L) 3.5 - 5.2 g/dL 10/28/2024 4:42 AM EDT [facility] eGFRcr 24.9 mL/min/1.7 3m*2 10/28/2024 4:42 AM EDT [facility] Comment:Reported eGFRcr in m L/min/1.73m2 is based the CKD-EPI 2020 equation that does not use a race coefficient. Blood Venous blood specimen / Unknown Venipuncture / Unknown 10/28/2024 3:43 AM EDT 10/28/2024 4:13 AM EDT Tiffany Patten DO LAB BLOOD ORDERABLES Final Re sult [facility] [address] [place] [address] * (ABNORMAL) CBC and differential (10/26/2024 9:19 AM EDT) Only the most recent of11 resultswithin the time period is included. WBC Count 9.12 3.70 - 10.30 10*3/uL LAB HEMATOLOGY METHOD 10/26/2024 9:25 AM EDT [facility] RBC Count 3.03(L) 3.90 - 5.20 10*6/uL LAB HEMATOLOGY METHOD 10/26/2024 9:25 AM EDT [facility] HGB 8.5(L) 11.2 - 15.7 g/dL LAB HEMATOLOGY METHOD 10/26/2024 9:25 AM EDT [facility] HCT 27.1(L) 34.0 - 45.0 % LAB HEMATOLOGY METHOD 10/26/2024 9:25 AM EDT [facility] Platelet Count 331 155 - 369 10*3/uL LAB HEMATOLOGY METHOD 10/26/2024 9:25 AM EDT [facility] MCV 89 79 - 98 fL LAB HEMATOLOGY METHOD 10/26/2024 9:25 AM EDT [facility] MCH 28.1 26.0 - 32.0 pg LAB HEMATOLOGY METHOD 10/26/2024 9:25 AM EDT [facility] MCHC 31.4 30.7 - 35.5 g/dL LAB HEMATOLOGY METHOD 10/26/2024 9:25 AM EDT [facility] RDW 24.6(H) 11.5 - 14.5 % LAB HEMATOLOGY METHOD 10/26/2024 9:25 AM EDT [facility] MPV 11.4 8.8 - 12.5 fL LAB HEMATOLOGY METHOD 10/26/2024 9:25 AM EDT [facility] nRBC 0.0 <=0.0 per 100 WBCs LAB HEMATOLOGY METHOD 10/26/2024 9:25 AM EDT [facility] Differential Type Automated LAB HEMATOLOGY METHOD 10/26/2024 9:25 AM EDT [facility] Neutrophils % 76 % LAB HEMATOLOGY METHOD 10/26/2024 9:25 AM EDT HEALTHCARE LAB Lymphocytes % 13 % LAB HEMATOLOGY METHOD 10/26/2024 9:25 AM EDT [facility] Monocytes % 7 % LAB HEMATOLOGY METHOD 10/26/2024 9:25 AM EDT [facility]ALTH[facility]ARE LAB Eosinophils % 3 % LAB HEMATOLOGY METHOD 10/26/2024 9:25 AM EDT [facility] Basophils % 1 % LAB HEMATOLOGY METHOD 10/26/2024 9:25 AM EDT [facility] Immature Granulocytes % 0 % LAB HEMATOLOGY METHOD 10/26/2024 9:25 AM EDT [facility] Neutrophils Absolute 6.90(H) 1.60 - 6.10 10*3/uL LAB HEMATOLOGY METHOD 10/26/2024 9:25 AM EDT [facility]ALTH[facility]ARE LAB Lymphocytes Absolute 1.22 1.20 - 3.90 10*3/uL LAB HEMATOLOGY METHOD 10/26/2024 9:25 AM EDT [facility] Monocytes Absolute 0.60 0.30 - 0.90 10*3/uL LAB HEMATOLOGY METHOD 10/26/2024 9:25 AM EDT [facility] Eosinophils Absolute 0.31 0.00 - 0.50 10*3/uL LAB HEMATOLOGY METHOD 10/26/2024 9:25 AM EDT [facility] Basophils Absolute 0.05 0.00 - 0.10 10*3/uL LAB HEMATOLOGY METHOD 10/26/2024 9:25 AM EDT [facility] Immature Granulocytes Absolute 0.04 0.00 - 0.06 10*3/uL LAB HEMATOLOGY METHOD 10/26/2024 9:25 AM EDT [facility] Blood Venous blood specimen / Unknown Venipuncture / Unknown 10/26/2024 9:19 AM EDT 10/26/2024 9:23 AM EDT Narrative HEALTHCARE LAB - 10/26/2024 9:25 AM EDT Therapeutic decision making should be based on absolute values, rather than percentages. us Yuriy Lockett MD LAB BLOOD ORDERABLES Final Resul t [facility] [address] [place] [address] * (ABNORMAL) Basic metabolic panel (10/26/2024 9:19 AM EDT) Only the most recent of10 resultswithin the time period is included. Glucose, Plasma 244(H) 74 - 99 mg/dL 10/26/2024 9:49 AM EDT [facility] BUN, Plasma 76(H) 8 - 23 mg/dL 10/26/2024 9:49 AM EDT [facility] Creatinine, Plasma 1.97(H) 0.60 - 1.10 mg/dL 10/26/2024 9:49 AM EDT [facility] BUN/Creatinine Ratio 39 10/26/2024 9:49 AM EDT [facility] Sodium, Plasma 138 136 - 145 mmol/L 10/26/2024 9:49 AM EDT [facility] Potassium, Plasma 5.0(H) 3.6 - 4.9 mmol/L 10/26/2024 9:49 AM EDT [facility] Chloride, Plasma 102 97 - 107 mmol/L 10/26/2024 9:49 AM EDT [facility] CO2, Plasma 25 22 - 29 mmol/L 10/26/2024 9:49 AM EDT [facility] Anion Gap 11 6 - 16 mmol/L 10/26/2024 9:49 AM EDT [facility] Total Calcium, Plasma 8.7(L) 8.9 - 10.2 mg/dL 10/26/2024 9:49 AM EDT [facility] eGFRcr 28.3 mL/min/1.7 3m*2 10/26/2024 9:49 AM EDT [facility] Comment:Reported eGFRcr in m L/min/1.73m2 is based the CKD-EPI 2020 equation that does not use a race coefficient. Blood Venous blood specimen / Unknown Venipuncture / Unknown 10/26/2024 9:19 AM EDT 10/26/2024 9:23 AM EDT us Yuriy Lockett MD LAB BLOOD ORDERABLES Final Resul t [facility] [address] [place] [address] * (ABNORMAL) Hemoglobin and Hematocrit, Blood (10/25/2024 12:23 PM EDT) Only the most recent of11 resultswithin the time period is included. HGB 8.1(L) 11.2 - 15.7 g/dL LAB HEMATOLOGY METHOD 10/25/2024 12:30 PM EDT [facility] HCT 25.4(L) 34.0 - 45.0 % LAB HEMATOLOGY METHOD 10/25/2024 12:30 PM EDT [facility] Blood Venous blood specimen / Unknown Venipuncture / Unknown 10/25/2024 12:23 PM EDT 10/25/2024 12:27 PM EDT Yuriy Lockett MD LAB BLOOD ORDERABLES Final Resul t Performing Organization Address City/[facility] de Phone Number HEALTHCARE LAB [address] [place] [address] * (ABNORMAL) Potassium (10/23/2024 10:26 AM EDT) Only the most recent of3 resultswithin the time period is included. Potassium, Plasma 5.2(H) 3.6 - 4.9 mmol/L 10/23/2024 10:53 AM EDT [facility] Blood Venous blood specimen / Unknown Venipuncture / Unknown 10/23/2024 10:26 AM EDT 10/23/2024 10:33 AM EDT us Yuriy Lockett MD LAB BLOOD ORDERABLES Final Resul t Performing Organization Address City/[facility] de Phone Number [facility] [address] [place] [address] * ECG Adult (10/23/2024 8:22 AM EDT) Only the most recent of4 resultswithin the time period is included. EKG DIAGNOSIS CLASS Abnormal MUSE ECG Ventricular Rate 85 BPM MUSE ECG QRSD Interval 94 ms MUSE ECG QT Interval 378 ms MUSE ECG QTC Interval 449 ms MUSE ECG R [place] 23 degrees MUSE ECG T Wave [place] 124 degrees MUSE ECG Diagnosis Atrial fibrillation with frequent ventricular-pac ed complexes MUSE ECG Diagnosis Nonspecific ST and T wave abnormality MUSE ECG Diagnosis MUSE ECG Diagnosis MUSE ECG Diagnosis Confirmed by José Miguel Rincon ([id number]) on 10/28/2024 10:50:56 PM MUSE ECG 10/23/2024 8:22 AM EDT 10/28/2024 10:50 PM EDT us Yuryi Lockett MD ECG ORDERABLES Final Result MUSE [...] ORDERABLES F inal Result Performing Organization Address City/[facility]/ZIP Co de Phone Number BLOOD BANK [address] [place] [address], [place] * Antibody Identification (10/22/2024 7:04 PM EDT) Only the most recent of3 resultswithin the time period is included. Antibody ID Anti-E Non-specif ic Patricia 10/22/2024 8:04 PM EDT BLOOD BANK Blood Venous blood specimen / Unknown Venipuncture / Unknown 10/22/2024 7:04 PM EDT 10/22/2024 7:08 PM EDT Yuriy Lockett MD LAB BLOOD BANK TEST ORDERABLES F inal Result Performing Organization Address [facility] Co de Phone Number BLOOD BANK [address] [place] [address], [place] * (ABNORMAL) Type and screen (10/22/2024 [...] ORDERABLES F inal Result Performing Organization Address [facility] de Phone Number BLOOD BANK [address] [place] [address], * Prepare Leukocyte Reduced RBC: 1 Units (10/22/2024 5:02 PM EDT) Only the most recent of3 resultswithin the time period is included. Product Code [id number] GS BLOO D BANK Dispense Status Transfused BLOOD BANK Blood Expiration Date [id number] BLOOD BANK Unit Number [id number] B LOOD BANK Product Blood Type 5100 BLOOD BANK Blood Type O+ BLOOD BANK Crossmatch Compatible BLOOD BANK Other Yuriy Lockett MD BLOOD BANK PRODUCT ORDERABLES Fi nal Result Performing Organization Address [facility] de Phone Number BLOOD BANK [address] [place] [address], [place] * XR Knee Right 3 Views [...] - 4.5 mg/dL 10/17/2024 1:43 AM EDT [facility] Blood Venous blood specimen / Unknown Venipuncture / Unknown 10/17/2024 1:04 AM EDT 10/17/2024 1:14 AM EDT us Aidan [place] MD LAB BLOOD ORDERABLES Final Res ult [facility] [address] [place] [address] * (ABNORMAL) Comprehensive metabolic panel (10/17/2024 1:04 AM EDT) Only the most recent of4 resultswithin the time period is included. Glucose, Plasma 138(H) 74 - 99 mg/dL 10/17/2024 1:43 AM EDT [facility] BUN, Plasma 50(H) 8 - 23 mg/dL 10/17/2024 1:43 AM EDT [facility] Creatinine, Plasma 1.74(H) 0.60 - 1.10 mg/dL 10/17/2024 1:43 AM EDT [facility] BUN/Creatinine Ratio 29 10/17/2024 1:43 AM EDT [facility] Sodium, Plasma 141 136 - 145 mmol/L 10/17/2024 1:43 AM EDT [facility] Potassium, Plasma 4.0 3.6 - 4.9 mmol/L 10/17/2024 1:43 AM EDT [facility] Chloride, Plasma 114(H) 97 - 107 mmol/L 10/17/2024 1:43 AM EDT [facility] CO2, Plasma 16(L) 22 - 29 mmol/L 10/17/2024 1:43 AM EDT [facility] Anion Gap 11 6 - 16 mmol/L 10/17/2024 1:43 AM EDT [facility] Total Calcium, Plasma 8.2(L) 8.9 - 10.2 mg/dL 10/17/2024 1:43 AM EDT [facility] Total Protein 5.2(L) 6.3 - 7.9 g/dL 10/17/2024 1:43 AM EDT [facility] Albumin, Plasma 2.9(L) 3.5 - 5.2 g/dL 10/17/2024 1:43 AM EDT [facility] AST, Plasma 15 10 - 35 U/L 10/17/2024 1:43 AM EDT [facility] ALT, Plasma 5(L) 10 - 35 U/L 10/17/2024 1:43 AM EDT [facility] Alkaline Phosphatase, Plasma 85 46 - 142 U/L 10/17/2024 1:43 AM EDT [facility] Total Bilirubin, Plasma 0.2 0.2 - 1.1 mg/dL 10/17/2024 1:43 AM EDT [facility] eGFRcr 32.8 mL/min/1.7 3m*2 10/17/2024 1:43 AM EDT [facility] Comment:Reported eGFRcr in m L/min/1.73m2 is based the CKD-EPI 2020 equation that does not use a race coefficient. Blood Venous blood specimen / Unknown Venipuncture / Unknown 10/17/2024 1:04 AM EDT 10/17/2024 1:14 AM EDT us Aidan [place] MD LAB BLOOD ORDERABLES Final Res ult [facility] [address] [place] [address] * FL Modified Barium Swallow (10/16/2024 3:05 [...] sips by the cup or the teaspoon. [place] consistency (IDDSI 2): There is no aspiration [...] sips by the cup or the teaspoon. [place] consistency (IDDSI 2): There is no aspiration [...] 5.82 ng/mL/h 10/20/2024 12:14 PM EDT [facility] ([facility]) Comment: This test was developed and its analytical performance characteristics have been determined by [employer]. It has not been cleared or approved by the FDA. This assay has been validated pursuant to the CLIA regulations and is used for clinical purposes. Blood Venous blood specimen / Unknown Venipuncture / Unknown 10/16/2024 8:11 AM EDT 10/16/2024 8:22 AM EDT Narrative [facility] ([facility]) - 10/20/2024 12:14 PM EDT Performing Organization Information: Site ID: [id number] Name: [employer] Address: [address] [place] [id number] Director: Enedina Thao MD, PhD Aidan [place] MD LAB BLOOD ORDERABLES Final Res ult [facility] ([facility]) [email or web address] [address] * (ABNORMAL) ACTH (10/16/2024 8:11 AM EDT) Only the most recent of2 resultswithin the time period is included. ACTH 5.45(L) 7.2 - 63 pg/mL 10/16/2024 11:38 AM EDT [facility] Blood Venous blood specimen / Unknown Venipuncture / Unknown 10/16/2024 8:11 AM EDT 10/16/2024 8:42 AM EDT Aidan [place] MD LAB BLOOD ORDERABLES Final Res ult [facility] [address] [place] [address] * Folate (10/16/2024 8:11 AM EDT) Folate, Serum 8.2 >4.6 ng/mL 10/16/2024 9:29 AM EDT [facility] Blood Venous blood specimen / Unknown Venipuncture / Unknown 10/16/2024 8:11 AM EDT 10/16/2024 8:34 AM EDT Aidan [place] MD LAB BLOOD ORDERABLES Final Res ult Performing Organization Address City/[facility]/[place] [address] * Ferritin (10/16/2024 8:11 AM EDT) Ferritin, Serum 73 13 - 150 ng/mL 10/16/2024 9:29 AM EDT [facility] Blood Venous blood specimen / Unknown Venipuncture / Unknown 10/16/2024 8:11 AM EDT 10/16/2024 8:34 AM EDT Aidan [place] MD LAB BLOOD [place]AB[place] [address] * Vitamin B12 (10/16/2024 8:11 AM EDT) Vitamin B12, Serum 906 210 - 1,033 pg/mL 10/16/2024 9:29 AM EDT [facility] Blood Venous blood specimen / Unknown Venipuncture / Unknown 10/16/2024 8:11 AM EDT 10/16/2024 8:34 AM EDT Aidan [place] MD LAB BLOOD ORDERABLES Final Res ult [facility] [address] [place] [address] * IA CRITICAL CARE, E/M 30-74 MINUTES (10/16/2024 6:41 [...] the findings and plan as documented. Result [facility] Aidan [place] MD IN CLINIC/BEDSIDE ORDERABLES F inal Result * (ABNORMAL) Iron & Total Iron Binding Capacity, Plasma (Includes Transferrin) (10/16/2024 12:09 AM EDT) Iron, Plasma 21(L) 30 - 160 ug/dL 10/16/2024 7:15 AM EDT [facility] Transferrin, Plasma 159(L) 200 - 360 mg/dL 10/16/2024 7:15 AM EDT [facility] Total Iron Binding Capacity, Plasma 199(L) 240 - 450 ug/mL 10/16/2024 7:15 AM EDT [facility] Transferrin Saturation 11(L) 14 - 50 % 10/16/2024 7:15 AM EDT [facility] Blood Venous blood specimen / Unknown Venipuncture / Unknown 10/16/2024 12:09 AM EDT 10/16/2024 12:37 AM EDT Aidan [place] MD LAB BLOOD ORDERABLES Final Res ult Performing Organization Address [facility] Co de Phone Number [facility] [address] [place] [address] * CORTISOL, 60 (10/15/2024 1:29 PM EDT) Cortisol Time=60 36.10 Before 10am: 3.7 - 19.4. After 5pm: 2.9 - 17.3 ug/dL 10/15/2024 3:46 PM EDT [facility] Comment:Administer cosyntrop in and obtain serum cortisol a Blood Venous blood specimen / Unknown Venipuncture / Unknown 10/15/2024 1:29 PM EDT 10/15/2024 2:03 PM EDT Aidan [place] MD LAB BLOOD ORDERABLES Final Res ult Performing Organization Address [facility] Co de Phone Number [facility] [address] [place] [address] * Cortisol, 30 (10/15/2024 12:55 PM EDT) Cortisol,Time=30 31.20 Before 10am: 3.7 - 19.4. After 5pm: 2.9 - 17.3 ug/dL 10/15/2024 2:42 PM EDT [facility] Comment:Administer cosyntrop in and obtain serum cortisol a Blood Venous blood specimen / Unknown Venipuncture / Unknown 10/15/2024 12:55 PM EDT 10/15/2024 1:21 PM EDT Aidan [place] MD LAB BLOOD ORDERABLES Final Res ult Performing Organization Address City/[facility]/ZIP Co de Phone Number [facility] [address] [place] [address] * Aldosterone (10/15/2024 12:08 PM EDT) Aldosterone 23.0 4.0 - 31.0 ng/dL 10/16/2024 1:35 AM EDT [facility] Blood Venous blood specimen / Unknown Venipuncture / Unknown 10/15/2024 12:08 PM EDT 10/15/2024 2:08 PM EDT Aidan [place] MD LAB BLOOD ORDERABLES Final Res ult Performing Organization Address [facility] Co de Phone Number [facility] [address] [place] [address] * Cortisol Baseline (10/15/2024 12:08 PM EDT) Cortisol (Baseline) 11.60 Before 10am: 3.7 - 19.4. After 5pm: 2.9 - 17.3 ug/dL 10/15/2024 2:07 PM EDT [facility] Comment:Administer cosyntrop in and obtain serum cortisol a Blood Venous blood specimen / Unknown Venipuncture / Unknown 10/15/2024 12:08 PM EDT 10/15/2024 12:14 PM EDT Aidan [place] MD LAB BLOOD ORDERABLES Final Res ult Performing Organization Address [facility] Co de Phone Number [facility] [address] [place] [address] * Cortisol (10/15/2024 8:29 AM EDT) Cortisol 9.60 Before 10am: 3.7 - 19.4. After 5pm: 2.9 - 17.3 ug/dL 10/15/2024 9:29 AM EDT [facility] Comment:Testing performed on [employer], standardized against [facility] Reference Standard concentration values assigned by LC-MS/MS and verified by BCR 192 and BCR 193 certified reference materials. Blood Venous blood specimen / Unknown Venipuncture / Unknown 10/15/2024 8:29 AM EDT 10/15/2024 8:38 AM EDT us Aidan Harrison MD LAB REF LAB BLOOD AND FLUID OR D Final Result [facility] [address] [place] [address] * [place] CRITICAL CARE, E/M 30-74 MINUTES (10/15/2024 6:49 [...] 0.16(H) <0.09 ng/mL 10/15/2024 6:41 AM EDT [facility] Blood Arterial blood specimen / Unknown Arterial Puncture / Unknown 10/15/2024 3:23 AM EDT 10/15/2024 3:31 AM EDT Narrative [facility] - 10/15/2024 6:41 [...] predict 28 day mortality risk. Please consult [email or web address] for more information. Test performed at [facility]. us Aidan Harrison MD LAB BLOOD ORDERABLES Final Res ult [facility] [address] [place] [address] * (ABNORMAL) Comprehensive Urine Drug Screening, Qualitative Assay, >= 27 Drug Classes (53:04 PM EDT) Acetaminophen Negative Negative 10/16/2024 9:48 AM EDT [facility] Alprazolam Negative Negative 10/16/2024 9:48 AM EDT [facility] Amantadine Negative Negative 10/16/2024 9:48 AM EDT [facility] Amitriptyline Negative Negative 10/16/2024 9:48 AM EDT [facility] Amphetamine Negative Negative 10/16/2024 9:48 AM EDT [facility] Atenolol Negative Negative 10/16/2024 9:48 AM EDT [facility] Benzoylecgonine Negative Negative 9:48 AM EDT [facility] Bisoprolol Negative Negative 10/16/2024 9:48 AM EDT [facility] Bupropion Negative Negative 10/16/2024 9:48 AM EDT [facility] Butalbital Negative Negative 10/16/2024 9:48 AM EDT [facility] Carbamazepine Negative Negative 10/16/2024 9:48 AM EDT [facility] Carisoprodol Negative Negative 10/16/2024 9:48 AM EDT [facility] Chlorpheniramine Negative Negative 10/17/19 9:48 AM EDT [facility] Citalopram Negative Negative 10/16/2024 9:48 AM EDT [facility] Clindamycin Negative Negative 10/16/2024 9:48 AM EDT [facility] Clonidine Negative Negative 10/16/2024 9:48 AM EDT [facility] Clopidogrel / Ticlopidine Negative Negative 10/16/2024 9:48 AM EDT [facility] Cocaethylene Negative Negative 10/16/2024 9:48 AM EDT [facility] Cocaine Negative Negative 10/16/2024 9:48 AM EDT [facility] Codeine Negative Negative 10/16/2024 9:48 AM EDT [facility] Cyclobenzaprine Negative Negative 9:48 AM EDT [facility] Desvenlafaxine Negative Negative 10/16/2024 9:48 AM EDT [facility] Dextromethorphan Negative Negative 10/17/19 9:48 AM EDT [facility] Diazepam Negative Negative 10/16/2024 9:48 AM EDT [facility] Diltiazem Negative Negative 10/16/2024 9:48 AM EDT [facility] Diphenhydramine Negative Negative 9:48 AM EDT [facility] Doxepine Negative Negative 10/16/2024 9:48 AM EDT [facility] Doxylamine Negative Negative 10/16/2024 9:48 AM EDT [facility] EDDP-Methadone metabolite Negative Negative 10/16/2024 9:48 AM EDT [facility] Fentanyl Negative Negative 10/16/2024 9:48 AM EDT [facility] Fluconazole Negative Negative 10/16/2024 9:48 AM EDT [facility] Fluoxetine Negative Negative 10/16/2024 9:48 AM EDT [facility] Guaifenesin Negative Negative 10/16/2024 9:48 AM EDT [facility] Haloperidol Negative Negative 10/16/2024 9:48 AM EDT [facility] Heroin/6-JUVENCIO Negative Negative 10/16/2024 9:48 AM EDT [facility] Hydrocodone Negative Negative 10/16/2024 9:48 AM EDT [facility] Hydroxyzine / Cetirizine metabolite Negative Negative 10/16/2024 9:48 AM EDT [facility] Ibuprofen Negative Negative 10/16/2024 9:48 AM EDT [facility] Imipramine Negative Negative 10/16/2024 9:48 AM EDT [facility] Ketamine Negative Negative 10/16/2024 9:48 AM EDT [facility] Labetolol Negative Negative 10/16/2024 9:48 AM EDT [facility] Lamotrigine Negative Negative 10/16/2024 9:48 AM EDT [facility] Levetiracetam Negative Negative 10/16/2024 9:48 AM EDT [facility] Lidocaine Positive(A) Negative 10/16/2024 9:48 AM EDT [facility] MDA Negative Negative 10/16/2024 9:48 AM EDT [facility] MDMA Negative Negative 10/16/2024 9:48 AM EDT [facility] Memantine Negative Negative 10/16/2024 9:48 AM EDT [facility] Meperidine Negative Negative 10/16/2024 9:48 AM EDT [facility] Meprobamate Negative Negative 10/16/2024 9:48 AM EDT [facility] Metaxalone Negative Negative 10/16/2024 9:48 AM EDT [facility] Methamphetamine Negative Negative 9:48 AM EDT [facility] Methocarbamol Negative Negative 10/16/2024 9:48 AM EDT [facility] Methylecgonine Negative Negative 10/16/2024 9:48 AM EDT [facility] Metoclopramide Negative Negative 10/16/2024 9:48 AM EDT [facility] Metoprolol Negative Negative 10/16/2024 9:48 AM EDT [facility] Metronidazole Negative Negative 10/16/2024 9:48 AM EDT [facility] Midazolam Negative Negative 10/16/2024 9:48 AM EDT [facility] Midazolam Metabolite Negative Negative 10/16/2024 9:48 AM EDT [facility] Mirtazapine Negative Negative 10/16/2024 9:48 AM EDT [facility] Misc Test Result Positive(A) Negative 025 9:48 AM EDT [facility] Comment: Escitalopram Citalopram Trazodone Naproxen Negative Negative 10/16/2024 9:48 AM EDT [facility] Nefazodone Negative Negative 10/16/2024 9:48 AM EDT [facility] Norfentanyl Negative Negative 10/16/2024 9:48 AM EDT [facility] Nortriptyline Negative Negative 10/16/2024 9:48 AM EDT [facility] Ordanstron Negative Negative 10/16/2024 9:48 AM EDT [facility] Oxcarbazepine Negative Negative 10/16/2024 9:48 AM EDT [facility] Oxycodone Positive(A) Negative 10/16/2024 9:48 AM EDT [facility] Paroxethine Negative Negative 10/16/2024 9:48 AM EDT [facility] Phenobarbital Negative Negative 10/16/2024 9:48 AM EDT [facility] Phentermine Negative Negative 10/16/2024 9:48 AM EDT [facility] Phenytoin Negative Negative 10/16/2024 9:48 AM EDT [facility] Primidone Negative Negative 10/16/2024 9:48 AM EDT [facility] Promethazine Negative Negative 10/16/2024 9:48 AM EDT [facility] Propofol Negative Negative 10/16/2024 9:48 AM EDT [facility] Propranolol Negative Negative 10/16/2024 9:48 AM EDT [facility] Quetiapine Negative Negative 10/16/2024 9:48 AM EDT [facility] Quinine Negative Negative 10/16/2024 9:48 AM EDT [facility] Rantidine Negative Negative 10/16/2024 9:48 AM EDT [facility] Sertraline Negative Negative 10/16/2024 9:48 AM EDT [facility] Spironolactone Negative Negative 10/16/2024 9:48 AM EDT [facility] Tizanidine Negative Negative 10/16/2024 9:48 AM EDT [facility] Topiramate Negative Negative 10/16/2024 9:48 AM EDT [facility] Tramadol Negative Negative 10/16/2024 9:48 AM EDT [facility] Trazadone/ Trazadone metabolite Negative Negative 10/16/2024 9:48 AM EDT [facility] Trimethoprim Negative Negative 10/16/2024 9:48 AM EDT [facility] Valproic Acid Negative Negative 10/16/2024 9:48 AM EDT [facility] Venlafaxine Negative Negative 10/16/2024 9:48 AM EDT [facility] Verapamil Negative Negative 10/16/2024 9:48 AM EDT [facility] Zolpidem Negative Negative 10/16/2024 9:48 AM EDT [facility] Xylazine Negative Negative 10/16/2024 9:48 AM EDT [facility] Urine Urine specimen obtained by clean catch procedure / Unknown Non-blood Collection / Unknown 10/14/2024 3:04 PM EDT 10/14/2024 3:16 PM EDT us Aidan [place] MD LAB URINE ORDERABLES Final Res ult [facility] [address] [place] [address] * Vitamin B1, Whole Blood (10/14/2024 2:35 PM EDT) [facility] VITAMIN B1, WHOLE BLOOD 128 70 - 180 nmol/L 10/17/2024 1:55 PM EDT [facility] Blood Arterial blood specimen / Unknown Arterial Line / Unknown 10/14/2024 2:35 PM EDT 10/14/2024 2:50 PM EDT Narrative [facility] ([facility] - 10/17/2024 1:55 PM EDT [...] developed and its performance characteristics determined by [facility]. It has not been cleared or approved by the [place] Food and Drug Administration. This test was performed in a CLIA certified laboratory and is intended for clinical purposes. Performed By: [facility] [address] [place] [address] Cigar Head Puncher: Jasper Newsome MD, PhD CLIA Number: [id number] us Aidan [place] MD LAB BLOOD ORDERABLES Final Res ult [facility] ([facility]) [address] [place] [address] * (ABNORMAL) Blood gas panel with oximetry, mixed venous (10/14/2024 2:31 PM EDT) pH, Mixed Venous 7.27(L) 7.32 - 7.43 LAB HEMATOLOGY METHOD 10/14/2024 2:45 PM EDT [facility] pCO2, Mixed Venous 41 37 - 52 mmHg LAB HEMATOLOGY METHOD 10/14/2024 2:45 PM EDT [facility] pO2, Mixed Venous 34 25 - 40 mmHg LAB HEMATOLOGY METHOD 10/14/2024 2:45 PM EDT [facility] SO2, Measured, Mixed Venous 57(L) 65 - 80 % LAB HEMATOLOGY METHOD 10/14/2024 2:45 PM EDT [facility] Bicarbonate, Calculated, Mixed Venous 19(L) 22 - 26 mmol/L LAB HEMATOLOGY METHOD 10/14/2024 2:45 PM EDT [facility] Base Excess, Mixed Venous -7.6(L) -2.0 - 3.0 mmol/L LAB HEMATOLOGY METHOD 10/14/2024 2:45 PM EDT [facility] Hematocrit, Whole Blood 24.7(L) 34.0 - 45.0 % LAB HEMATOLOGY METHOD 10/14/2024 2:45 PM EDT [facility] Sodium, Whole Blood 144 136 - 145 mmol/L LAB HEMATOLOGY METHOD 10/14/2024 2:45 PM EDT [facility] Potassium, Whole Blood 3.6 3.6 - 4.9 mmol/L LAB HEMATOLOGY METHOD 10/14/2024 2:45 PM EDT [facility] Chloride, Whole Blood 113(H) 97 - 107 mmol/L LAB HEMATOLOGY METHOD 10/14/2024 2:45 PM EDT [facility] Ionized Calcium, Whole Blood 4.6 4.6 - 5.1 mg/dL LAB HEMATOLOGY METHOD 10/14/2024 2:45 PM EDT [facility] Glucose, Whole Blood 110(H) 74 - 99 mg/dL LAB HEMATOLOGY METHOD 10/14/2024 2:45 PM EDT [facility] Oxyhemoglobin, Mixed Venous, Whole Blood 56.2 40.0 - 70.0 % LAB HEMATOLOGY METHOD 10/14/2024 2:45 PM EDT [facility] Hemoglobin Reduced, Mixed Venous, Whole Blood 41.8 % LAB HEMATOLOGY METHOD 10/14/2024 2:45 PM EDT [facility] Total Hemoglobin, Mixed Venous, Whole Blood 8.1(L) 11.2 - 15.7 g/dL LAB HEMATOLOGY METHOD 10/14/2024 2:45 PM EDT [facility] Blood Mixed venous blood specimen / Unknown Venipuncture / Unknown 10/14/2024 2:31 PM EDT 10/14/2024 2:43 PM EDT us Aidan [place] MD LAB BLOOD ORDERABLES Final Res ult [facility] [address] [place] [address] * Treponema Pallidum (Syphilis) Antibodies with Reflex to RPR and RPR Titer (Those with NO known Syphilis) (10/14/2024 9:44 AM EDT) Syphilis Antibody (IgG+IgM) Nonreactive Nonreactive 10/14/2024 11:42 AM EDT [facility] Comment:Nonreactive. No sero logic evidence of syphilis. No follow-up necessary unless clinically indicated (e.g., early syphilis). Blood Venous blood specimen / Unknown Venipuncture / Unknown 10/14/2024 9:44 AM EDT 10/14/2024 10:25 AM EDT Result Nicole [place] MD LAB BLOOD ORDERABLES Final Res ult Performing Organization Address City/[facility]/ZIP Co de Phone Number [facility] [address] [place] [address] * (ABNORMAL) T3 (10/14/2024 9:44 AM EDT) T3, Serum 47(L) 87 - 187 ng/dL 10/14/2024 11:57 PM EDT [facility] Blood Venous blood specimen / Unknown Venipuncture / Unknown 10/14/2024 9:44 AM EDT 10/14/2024 10:25 AM EDT Result Nicole [place] MD LAB BLOOD ORDERABLES Final Res ult Performing Organization Address [facility] Co de Phone Number [facility] [address] [place] [address] * [place] CRITICAL CARE, E/M 30-74 MINUTES (10/14/2024 8:59 [...] 10/14/2024 9:14 AM Final report signed by Srikatnh [place] MD on 10/14/2024 9:38 AM us Aidan [place] MD IMG XR PROCEDURES Final Result * (ABNORMAL) Blood gas panel, arterial (10/14/2024 7:52 AM EDT) pH, Arterial 7.32 7.31 - 7.42 LAB HEMATOLOGY METHOD 10/14/2024 7:58 AM EDT [facility] pCO2, Arterial 35 35 - 48 mmHg LAB HEMATOLOGY METHOD 10/14/2024 7:58 AM EDT [facility] pO2, Arterial 75(L) >80 mmHg LAB HEMATOLOGY METHOD 10/14/2024 7:58 AM EDT [facility] SO2, Measured, Arterial 96 94 - 98 % LAB HEMATOLOGY METHOD 10/14/2024 7:58 AM EDT [facility] Base Excess, Arterial -7.8(L) -2.0 - 3.0 mmol/L LAB HEMATOLOGY METHOD 10/14/2024 7:58 AM EDT [facility] Bicarbonate, Calculated, Arterial 18(L) 22 - 26 mmol/L LAB HEMATOLOGY METHOD 10/14/2024 7:58 AM EDT [facility] Hematocrit, Whole Blood 24.5(L) 34.0 - 45.0 % LAB HEMATOLOGY METHOD 10/14/2024 7:58 AM EDT [facility] Sodium, Whole Blood 142 136 - 145 mmol/L LAB HEMATOLOGY METHOD 10/14/2024 7:58 AM EDT [facility] Potassium, Whole Blood 3.9 3.6 - 4.9 mmol/L LAB HEMATOLOGY METHOD 10/14/2024 7:58 AM EDT [facility] Chloride, Whole Blood 114(H) 97 - 107 mmol/L LAB HEMATOLOGY METHOD 10/14/2024 7:58 AM EDT [facility] Glucose, Whole Blood 100(H) 74 - 99 mg/dL LAB HEMATOLOGY METHOD 10/14/2024 7:58 AM EDT [facility] Ionized Calcium, Whole Blood 4.5(L) 4.6 - 5.1 mg/dL LAB HEMATOLOGY METHOD 10/14/2024 7:58 AM EDT [facility] Lactate, Arterial, Whole Blood 0.7 0.5 - 1.6 mmol/L LAB HEMATOLOGY METHOD 10/14/2024 7:58 AM EDT [facility] Blood Arterial blood specimen / Unknown Arterial Puncture / Unknown 10/14/2024 7:52 AM EDT 10/14/2024 7:55 AM EDT us Aidan [place] MD LAB BLOOD ORDERABLES Final Res ult Performing Organization Address City/[facility]/[place] [address] * (ABNORMAL) BETA HYDROXYBUTYRIC ACID (10/14/2024 6:25 AM EDT) Beta-Hydroxybu tyric Acid, Plasma 1.36(H) <=0.27 mmol/L 10/14/2024 7:30 AM EDT [facility] Blood Venous blood specimen / Unknown Venipuncture / Unknown 10/14/2024 6:25 AM EDT 10/14/2024 6:33 AM EDT us Aidan [place] MD LAB BLOOD ORDERABLES Final Res ult Performing Organization Address City/[facility] [place] [address] * TSH (10/14/2024 6:25 AM EDT) Thyroid Stimulating Hormone, Plasma 2.89 0.40 - 4.20 uIU/mL 10/14/2024 2:24 PM EDT [facility] Blood Venous blood specimen / Unknown Venipuncture / Unknown 10/14/2024 6:25 AM EDT 10/14/2024 6:33 AM EDT Aidan [place] MD LAB BLOOD ORDERABLES Final Res ult Performing Organization Address City/[facility]/[place] [address] * T4, free (10/14/2024 6:25 AM EDT) Free T4, Plasma 1.6 0.8 - 1.7 ng/dL 10/14/2024 2:24 PM EDT [facility] Blood Venous blood specimen / Unknown Venipuncture / Unknown 10/14/2024 6:25 AM EDT 10/14/2024 6:33 AM EDT us Aidan [place] MD LAB BLOOD ORDERABLES Final Res ult Performing Organization Address City/[facility]/ZIP Co de Phone Number [facility] [address] [place] [address] * Ionized calcium, serum (10/14/2024 12:22 AM EDT) Ionized Calcium, Serum 4.8 4.6 - 5.3 mg/dL LAB HEMATOLOGY METHOD 10/14/2024 12:56 AM EDT [facility] Blood Venous blood specimen / Unknown Venipuncture / Unknown 10/14/2024 12:22 AM EDT 10/14/2024 12:34 AM EDT Kasey Win MD LAB BLOOD ORDERABLES Final Res ult Performing Organization Address [facility]/ZIP Co de Phone Number [facility] [address] [place] [address] * XR Hand Right 3+ Views (10/13/2024 [...] MD on 10/14/2024 7:56 AM Dariela Potter [employer]ODUCER IMG XR PROCEDURES Final Re sult * [...] 38(H) <14 ng/L 10/13/2024 10:18 AM EDT [facility] Troponin Delta 2 <10 ng/L 10/13/2024 10:18 AM EDT [facility] Troponin Delta Interpretation Not Significant 10/13/2024 10:18 AM EDT [facility] Comment:Not Significant. No acute change in troponin observed between the baseline and 2 hour samples. Blood Arterial blood specimen / Unknown Arterial Line / Unknown 10/13/2024 9:40 AM EDT 10/13/2024 9:50 AM EDT us Cat Jamison MD LAB BLOOD ORDERABLES Final Result Performing Organization Address City/State/[facility] Co de Phone Number [facility] [address] [place] [address] * IA INSERT NON-TUNNEL CV CATH, HC INSERT NON-TUNNEL [...] were discussed: yes Alternatives discussed: No treatment [place] protocol: Procedure explained and questions answered to [...] IN CLINIC/BEDSIDE ORDERABLES F inal Result * IA INSERT CATH,ART,PERCUT,SHORTTERM, HC INSERT CATH,ART,PERCUT,SHORTTERM (10/13/2024 9:09 AM EDT) Narrative Aidan Harrison MD - 10/13/2024 9:09 AM EDT Aidan Harrison MD 10/13/2024 3:36 PM Arterial line Performed by: Erickson Gr DO Authorized by: Aidan [place] MD Consent: Consent obtained: Emergent situation Consent given by: Patient Risks, benefits, and alternatives were discussed: yes Risks discussed: Bleeding, infection, ischemia, repeat procedure and pain [place] protocol: Procedure explained and questions answered to [...] is no recent study available for direct [id number] comparison. Left Ventricle The left ventricle is [...] is no recent study available for direct [id number] comparison. us Cat Jamison MD CV ECHO PROCEDURES Final R esult * Lactate, venous (10/13/2024 6:35 AM EDT) Lactate, Venous, Whole Blood 0.8 0.5 - 2.2 mmol/L LAB HEMATOLOGY METHOD 10/13/2024 6:40 AM EDT [facility] Blood Venous blood specimen / Unknown Venipuncture / Unknown 10/13/2024 6:35 AM EDT 10/13/2024 6:39 AM EDT us Kasey Win MD LAB BLOOD ORDERABLES Final Res ult Performing Organization Address City/[facility]/ZIP Co de Phone Number [facility] [address] [place] [address] * Blood Culture (Aerobic/Anaerobet Set) (10/13/2024 6:35 AM EDT) Culture No growth at day 5 LANA 10/18/2024 8:02 AM EDT [facility] Blood Venous blood specimen / Unknown Venipuncture / Unknown 10/13/2024 6:35 AM EDT 10/13/2024 7:18 AM EDT Kasey Win MD LAB MICROBIOLOGY - GENERAL ORD ERABLES Final Result Performing Organization Address [facility] [place] [address] * Urine Rao Panel (10/13/2024 6:08 AM EDT) Extra Reflex urine culture not indicated 10/13/2024 8:02 AM EDT [facility] Urine Urine specimen obtained by clean catch procedure / Unknown Non-blood Collection / Unknown 10/13/2024 6:08 AM EDT 10/13/2024 6:33 AM EDT us Kasey Win MD LAB URINE ORDERABLES Final Res ult Performing Organization Address [facility] Co de Phone Number [facility] [address] [place] [address] * Urinalysis Microscopic Examination (10/13/2024 6:08 AM EDT) Urine Urine specimen obtained by clean catch procedure / Unknown Non-blood Collection / Unknown 10/13/2024 6:08 AM EDT 10/13/2024 6:21 AM EDT us Kasey Win MD LAB URINE ORDERABLES Final Res ult Performing Organization Address City/[facility]/ZIP Co de Phone Number [facility] [address] [place] [address] * (ABNORMAL) Urinalysis with reflex microscopic (Culture NOT Included) (10/13/2024 6:08 AM ED) Only the most recent of2 resultswithin the time period is included. Color, Urine Yellow LAB URINALYSIS - AUTOMATED METHOD 10/13/2024 7:07 AM [facility] Clarity, Urine Clear LAB URINALYSIS - AUTOMATED METHOD 10/13/2024 7:07 AM [facility] Spec [place], Urine 1.016 1.005 - 1.030 LAB URINALYSIS - AUTOMATED METHOD 10/13/2024 7:07 AM [facility] pH, Urine 6.5 5.0 - 8.0 LAB URINALYSIS - AUTOMATED METHOD 10/13/2024 7:07 AM [facility] Protein, Urine Trace(A) Negative mg/dL LAB URINALYSIS - AUTOMATED METHOD 10/13/2024 7:07 AM [facility] Glucose, Urine Negative Negative mg/dL LAB URINALYSIS - AUTOMATED METHOD 10/13/2024 7:07 AM [facility] Ketones, Urine Negative Negative mg/dL LAB URINALYSIS - AUTOMATED METHOD 10/13/2024 7:07 AM [facility] Blood, Urine Negative Negative LAB URINALYSIS - AUTOMATED METHOD 10/13/2024 7:07 AM [facility] Bilirubin, Urine Negative Negative LAB URINALYSIS - AUTOMATED METHOD 10/13/2024 7:07 AM [facility] Urobilinogen, Urine 0.2 0.2 to 1.0 mg/dL LAB URINALYSIS - AUTOMATED METHOD 10/13/2024 7:07 AM [facility] Leukocytes, Urine Small(A) Negative LAB URINALYSIS - AUTOMATED METHOD 10/13/2024 7:07 AM [facility] Nitrite, Urine Negative Negative LAB URINALYSIS - AUTOMATED METHOD 10/13/2024 7:07 AM [facility] RBC, Urine <1 0 to 3 /HPF LAB URINALYSIS - AUTOMATED METHOD 10/13/2024 7:07 AM [facility] WBC, Urine 6 - 10(A) 0 to 5 /HPF LAB URINALYSIS - AUTOMATED METHOD 10/13/2024 7:07 AM EDT [facility] Squamous Epithelial Cells 0 - 2 0 to 5 /HPF LAB URINALYSIS - AUTOMATED METHOD 10/13/2024 7:07 AM EDT [facility] Hyaline Casts 0 - 2 0 to 5 /LPF LAB URINALYSIS - AUTOMATED METHOD 10/13/2024 7:07 AM EDT [facility] Bacteria, Urine Negative Negative LAB URINALYSIS - AUTOMATED METHOD 10/13/2024 7:07 AM EDT [facility] Urine Urine specimen obtained by clean catch procedure / Unknown Non-blood Collection / Unknown 10/13/2024 6:08 AM EDT 10/13/2024 6:21 AM EDT us Kasey Win MD LAB URINE ORDERABLES Final Res ult Performing Organization Address [facility]/[place] [address] * Viv auris Surveillance by PCR (10/13/2024 6:05 AM EDT) Viv auris PCR Result Not Detected Not Detected 10/13/2024 12:18 PM EDT [facility] Swab (Axilla and Groin) Non-blood Collection / Unknown 10/13/2024 6:05 AM EDT 10/13/2024 6:31 AM EDT Narrative [facility] - 10/13/2024 12:18 PM EDT This PCR assay was developed and its performance characteristics determined by [email or web address] as appropriate for clinical purposes. This assay has not been cleared or approved by the FDA, but is performed in a CLIA regulated laboratory that is qualified to perform high-complexity testing. us Kasey Win MD LAB MICROBIOLOGY - GENERAL ORD ERABLES Final Result Performing Organization Address [facility]/[place] [address] * (ABNORMAL) Multi Drug Resistance Test (10/13/2024 6:05 AM EDT) Culture Klebsiella pneumoniae ESBL(AA) LANA 10/17/2024 11:07 AM EDT [facility] Comment: The organism value for this result has been updated. These results have been appended to the previously preliminary verified report. The organism value for this result has been updated. These results have been appended to the previously preliminary verified report. Swab (Nares and Rachel Rectal) Non-blood Collection / Unknown 10/13/2024 6:05 AM EDT 10/13/2024 6:31 AM EDT Narrative [facility] - 10/17/2024 11:07 AM EDT This test was developed and its performance characteristics determined by the [facility]. Although the media is FDA-approved, it is not FDA-approved for all specimen types submitted. The FDA has determined that such clearance or approval is not necessary. This test is used for surveillance purposes. It should not be regarded as investigational or for research. The [facility] is certified under [...] MICROBIOLOGY - GENERAL ORD ERABLES Final Result [facility] [address] [place] [address] * Methicillin Resistant Staphylococcus aureus (MRSA) by PCR (10/13/2024 6:05 AM EDT) Methicillin Resistant Staphylococcus aureus (MRSA) by PCR Not Detected Not Detected 10/13/2024 9:07 AM EDT [facility] Swab Both anterior nares / Unknown Non-blood Collection / Unknown 10/13/2024 6:05 AM EDT 10/13/2024 7:18 AM EDT Narrative [facility] - 10/13/2024 9:07 [...] MICROBIOLOGY - GENERAL ORD ERABLES Final Result [facility] [address] [place] [address] * (ABNORMAL) Troponin T, High Sensitivity, 0 Hour Plasma, Reflex to 2 Hour (10/13/2024 5:18 AM EDT) [facility] Troponin T, High Sensitivity, 0 Hour 36(H) <14 ng/L 10/13/2024 6:21 AM EDT [facility] Blood Venous blood specimen / Unknown Venipuncture / Unknown 10/13/2024 5:18 AM EDT 10/13/2024 5:24 AM EDT us Cat Jamison MD LAB BLOOD ORDERABLES Final Result Performing Organization Address City/[facility]/ZIP Co de Phone Number [facility] [address] [place] [address] * (ABNORMAL) N-Terminal Probnp (10/13/2024 5:18 AM EDT) N-Terminal, PROBNP, Plasma 1,081(H) 0 - 899 pg/mL 10/13/2024 6:21 AM EDT [facility] Blood Venous blood specimen / Unknown Venipuncture / Unknown 10/13/2024 5:18 AM EDT 10/13/2024 5:24 AM EDT us Kasey Win MD LAB BLOOD ORDERABLES Final Res ult [facility] [address] [place] [address] * CT Bony Pelvis (10/13/2024 3:57 AM [...] 6.6(H) <5.7 % 10/13/2024 12:54 PM EDT [facility] Blood Venous blood specimen / Unknown Venipuncture / Unknown 10/13/2024 3:44 AM EDT 10/13/2024 3:46 AM EDT Narrative [facility] - 10/13/2024 12:54 PM EDT HA1C Interpretive Data: Diagnosis of Diabetes: Diabetic > or = 6.5% Pre-diabetic 5.7 to 6.4% Non-diabetic < or = 5.6% Glycemic Targets for Type I and Type II Diabetics: Non- Adults <7.0% Adults <6.0% Children and Adolescents <7.5% Source: [place] [employer]. Standards of medical care in diabetes,2017. Diabetes Care.2017:40 (suppl 1):S1-S135. us Kasey Win MD LAB BLOOD ORDERABLES Final Res ult [facility] [address] [place] [address] * (ABNORMAL) Blood gas, venous (10/13/2024 3:44 AM EDT) pH, Venous 7.29(L) 7.32 - 7.43 LAB HEMATOLOGY METHOD 10/13/2024 3:55 AM EDT [facility] pCO2, Venous 37 37 - 52 mmHg LAB HEMATOLOGY METHOD 10/13/2024 3:55 AM EDT [facility] pO2, Venous 26 25 - 40 mmHg LAB HEMATOLOGY METHOD 10/13/2024 3:55 AM EDT [facility] SO2, Measured, Venous 44(L) 65 - 80 % LAB HEMATOLOGY METHOD 10/13/2024 3:55 AM EDT [facility] Base Excess, Venous -8.5(L) -2.0 - 3.0 mmol/L LAB HEMATOLOGY METHOD 10/13/2024 3:55 AM EDT [facility] Bicarbonate, Calculated, Venous 17(L) 22 - 26 mmol/L LAB HEMATOLOGY METHOD 10/13/2024 3:55 AM EDT [facility] Hematocrit, Whole Blood 29.1(L) 34.0 - 45.0 % LAB HEMATOLOGY METHOD 10/13/2024 3:55 AM EDT [facility] Sodium, Whole Blood 134(L) 136 - 145 mmol/L LAB HEMATOLOGY METHOD 10/13/2024 3:55 AM EDT [facility] Potassium, Whole Blood 4.3 3.6 - 4.9 mmol/L LAB HEMATOLOGY METHOD 10/13/2024 3:55 AM EDT [facility] Chloride, Whole Blood 107 97 - 107 mmol/L LAB HEMATOLOGY METHOD 10/13/2024 3:55 AM EDT [facility] Glucose, Whole Blood 112(H) 74 - 99 mg/dL LAB HEMATOLOGY METHOD 10/13/2024 3:55 AM EDT [facility] Lactate, Venous, Whole Blood 1.2 0.5 - 2.2 mmol/L LAB HEMATOLOGY METHOD 10/13/2024 3:55 AM EDT [facility] Ionized Calcium, Whole Blood 4.8 4.6 - 5.1 mg/dL LAB HEMATOLOGY METHOD 10/13/2024 3:55 AM EDT [facility] Blood Venous blood specimen / Unknown Venipuncture / Unknown 10/13/2024 3:44 AM EDT 10/13/2024 3:53 AM EDT us Derik Renae MD LAB BLOOD ORDERABLES Final Resu lt [facility] [address] [place] [address] * Drug Abuse Screen, Urine (10/12/2024 11:56 PM EDT) Amphetamine Screen Urine Negative Cutoff: 500 ng/mL 10/13/2024 12:45 AM EDT [facility] Benzodiazepines Screen Urine Negative Cutoff: 200 ng/mL 10/13/2024 12:45 AM EDT [facility] Cannabinoid Screen Urine Negative Cutoff: 50 ng/mL 10/13/2024 12:45 AM EDT [facility] Cocaine Screen Urine Negative Cutoff: 300 ng/mL 10/13/2024 12:45 AM EDT [facility] Barbiturate Screen Urine Negative Cutoff: 200 ng/mL 10/13/2024 12:45 AM EDT [facility] Opiate Screen Urine Negative Cutoff: 300 ng/mL 10/13/2024 12:45 AM EDT [facility] Methadone Screen Urine Negative Cutoff: 300 ng/mL 10/13/2024 12:45 AM EDT [facility] Buprenorphine Screen Urine Negative Cutoff: 10 ng/mL 10/13/2024 12:45 AM EDT [facility] Fentanyl Screen Urine Negative Cutoff: 1 ng/mL 10/13/2024 12:45 AM EDT [facility] Oxycodone Screen Urine Negative Cutoff: 100 ng/mL 10/13/2024 12:45 AM EDT [facility] Urine Urine specimen obtained by clean catch procedure / Unknown Non-blood Collection / Unknown 10/12/2024 11:56 PM EDT 10/13/2024 12:13 AM EDT us Cat Jamison MD LAB URINE ORDERABLES Final Result Performing Organization Address [facility]/ZIP Co de Phone Number [facility] [address] [place] [address] * (ABNORMAL) Anti Xa Level Low Molecular Weight (10/12/2024 11:56 PM EDT) Anti Xa Level Low Molecular Weight Heparin >2.00(HH) <2.00 IU/mL 10/13/2024 1:02 AM EDT [facility] Blood Venous blood specimen / Unknown Venipuncture / Unknown 10/12/2024 11:56 PM EDT 10/13/2024 12:01 AM EDT Narrative [facility] - 10/13/2024 1:02 AM EDT Therapeutic Range: LMWH enoxaparin 1mg/kg/dose, 12hrs - peak (3-5 hours after dose): 0.5 - 1.0 IU/mL LMWH enoxaparin 1.5mg/kg/dose, 24hrs - peak (3-5 hours after dose): 1.0 - 2.0 IU/mL LMWH enoxaparin prophylaxis: Not established us Derik Renae MD LAB BLOOD ORDERABLES Final Resu lt Performing Organization Address City/[facility]/ZIP Co de Phone Number [facility] [address] [place] [address] * Red Blood Cell Antibody with Antigen Notification (10/12/2024 11:55 PM EDT) Notification, Gabriela Blood Cell Antibody with Antigen During your recent admission to the [facility], laboratory testing performed in the [...] do not hesitate to call me at [phone]. No defined reference value 10/14/2024 4:24 PM EDT BLOOD BANK Pathologist Signature, Red Blood Cell Antibody with Antigen Reviewed by: Srikanth Watson MD 10/14/2024 4:24 PM EDT [facility]LO[facility]ANK Blood Venous blood specimen / Unknown Venipuncture / Unknown 10/12/2024 11:55 PM EDT 10/13/2024 12:04 AM EDT us Aidan Harrison MD LAB BLOOD BANK TEST ORDERABLES Final Result Performing Organization Address City/[facility]/ZIP Co de Phone Number BLOOD BANK [address] * ED HIV 1/2 Antibody/Antigen Screen w/Reflex to HIV 1/2 Differentiation (10/12/2024 11:55 PM EDT) HIV 1 & 2 Antibody/Antigen Screen Non Reactive Non Reactive 10/13/2024 12:58 AM EDT [facility] Comment:Screening for HIV 1 & 2 antibodies, and P24 antigen is NONREACTIVE. No confirmatory testing is required. Blood Venous blood specimen / Unknown Venipuncture / Unknown 10/12/2024 11:55 PM EDT 10/13/2024 12:12 AM EDT Cat Jamison MD LAB BLOOD ORDERABLES Final Result [facility] [address] [place] [address] * (ABNORMAL) Trauma shock panel blood gas (10/12/2024 11:55 PM EDT) [facility] pH, Venous 7.23(LL) 7.32 - 7.43 LAB HEMATOLOGY METHOD 10/13/2024 12:06 AM EDT [facility] Bicarbonate, Calculated, Venous 17(L) 22 - 26 mmol/L LAB HEMATOLOGY METHOD 10/13/2024 12:06 AM EDT [facility] Base Excess, Venous -10.0(L) -2.0 - 3.0 mmol/L LAB HEMATOLOGY METHOD 10/13/2024 12:06 AM EDT [facility] Lactate, Venous, Whole Blood 1.8 0.5 - 2.2 mmol/L LAB HEMATOLOGY METHOD 10/13/2024 12:06 AM EDT [facility] Blood Venous blood specimen / Unknown Venipuncture / Unknown 10/12/2024 11:55 PM EDT 10/13/2024 12:02 AM EDT us Cat Jamison MD LAB BLOOD ORDERABLES Final Result [facility] [address] [place] [address] * Ethyl Alcohol Plasma (10/12/2024 11:55 PM EDT) [facility] Ethanol Plasma <10 <10 mg/dL 10/13/2024 12:55 AM EDT [facility] Blood Venous blood specimen / Unknown Venipuncture / Unknown 10/12/2024 11:55 PM EDT 10/13/2024 12:12 AM EDT Narrative [facility] - 10/13/2024 12:55 AM EDT Enzymatic Assay: Performed on [employer]. us Cat Jamison MD LAB BLOOD ORDERABLES Final Result [facility] [address] [place] [address] * Hepatitis C Antibody - ED (10/12/2024 11:55 PM EDT) [facility] Hepatitis C Antibody Negative Negative 10/13/2024 12:58 AM EDT [facility] Blood Venous blood specimen / Unknown Venipuncture / Unknown 10/12/2024 11:55 PM EDT 10/13/2024 12:12 AM EDT Cat Jamison MD LAB BLOOD ORDERABLES Final Result Performing Organization Address [facility]/ZIP Co de Phone Number [facility] [address] [place] [address] * (ABNORMAL) TEG Global Hemostasis with Lysis (10/12/2024 11:55 PM EDT) Pathologist [facility] R, Lysis 9.3(H) 4.6 - 9.1 min 10/13/2024 1:21 AM EDT [facility] MA, Rapid, Lysis 69.9 52.0 - 70.0 mm 10/13/2024 1:21 AM EDT [facility] MA, Fibrinogen, Lysis 32.5(H) 15.0 - 32.0 mm 10/13/2024 1:21 AM EDT [facility] LY30 0.8 0.0 - 2.6 % 10/13/2024 1:21 AM EDT [facility] Blood Venous blood specimen / Unknown Venipuncture / Unknown 10/12/2024 11:55 PM EDT 10/13/2024 12:17 AM EDT Cat Jamison MD LAB BLOOD ORDERABLES Final Result Performing Organization Address City/[facility]/ZIP Co de Phone Number [facility] [address] [place] [address] * (ABNORMAL) APTT (PTT) (10/12/2024 11:55 PM EDT) [facility] aPTT 36(H) 25 - 35 sec 10/13/2024 12:15 AM EDT [facility] Blood Venous blood specimen / Unknown Venipuncture / Unknown 10/12/2024 11:55 PM EDT 10/13/2024 12:01 AM EDT Cat Jamison MD LAB BLOOD ORDERABLES Final Result [facility] [address] [place] [address] * (ABNORMAL) PT-INR (10/12/2024 11:55 PM EDT) Prothrombin Time 20.2(H) 12.0 - 14.3 sec 10/13/2024 12:14 AM EDT [facility] INR 1.7(H) 0.9 - 1.1 10/13/2024 12:14 AM EDT [facility] Blood Venous blood specimen / Unknown Venipuncture / Unknown 10/12/2024 11:55 PM EDT 10/13/2024 12:01 AM EDT Narrative [facility] - 10/13/2024 12:14 AM EDT OPTIMAL INR RANGES FOR PATIENT ON ORAL ANTICOAGULANT THERAPY Prevention of venous thromboembolism INR 2.0 to 3.0 In patients with heart disease: Atrial fibrillation INR 2.0 to 3.0 Valvular heart disease INR 2.0 to 3.0 Tissue heart valves INR 2.0 to 3.0 Mechanical prosthetic valves INR 2.5 to 3.5 Prevention of recurrent ME INR 2.5 to 3.5 Cat Jamison MD LAB BLOOD ORDERABLES Final Result Performing Organization Address [facility] Co de Phone Number [facility] [address] [place] [address] * Test Qualitative Plasma (10/12/2024 11:55 PM EDT) Test Negative Negative 10/13/2024 1:02 AM EDT [facility] Blood Venous blood specimen / Unknown Venipuncture / Unknown 10/12/2024 11:55 PM EDT 10/13/2024 12:12 AM EDT Narrative [facility] - 10/13/2024 1:02 AM EDT Reference Range: Males and non- females: Negative. Cat Jamison MD LAB BLOOD ORDERABLES Final Result [facility] [address] [place] [address] * CT OUTSIDE IMAGES (10/12/2024 8:15 PM [...] Documents on File Type Date Recorded Patient Pugger Helper Expl anation Advance Directives and Livin g Will 10/14/2024 4:42 PM Advance Directives and Livin g Will 10/13/2024 6:35 AM * Full Code (Latest Code Status on File) Date Activated Date Inactivated Comments 10/13/2024 5:26 AM 10/30/2024 7:10 PM Question Answer Comments I have reviewed the capacity from the link above and, if needed, have updated to appropriate status: Yes Care Teams Pneumatic Tube Operator Relationship Specialty Start Date End Date Cosme Davis MD [address] [place] [id number] PCP - General 06/24/20
--- OUTSIDE RECORDS SUMMARY | 2025-01-08 06:51 | XMS_ITS | Encounter Summary ---
Author Organization [employer] ([place], [place], [place], [place], [place]) Address [address] [place] [address] Care Team Providers Care Career Based Intervention Coordinator Name Role Phone Unavailable Primary Care Provider Unavailabl e Encounter Details Date Type Department Care Team (Late st Contact Info) Description 03/29/2018 Transcribed Document [facility] [address] [place] [address] ProviderZion MD [address] [place], [place] [...] - Zion ProviderMD - 03/29/2018 3:54 PM COMPENSATION BUSINESS PARTNER [address] [place] [address] Patient Copy Patient Information: Name: ETHAN CRONIN Current Date: 03/29/2018 15:54:26 : 1960 Patient Address: [address] [place] [phone] Patient Attending Physician: MELY WHITNEY MD Primary Care Provider: CRUZ, NOT LISTED Primary Care Provider Phone: Discharge Diagnosis: Endocarditis Weight on Admission: 165 lb, 14 oz Comment: Follow-up Instructions: With: Address: When: JOHN TSAI [address] [facility] [place] [address] Business (1) Within 1 month With: Address: When: SUJIT DUNBAR [address] [facility], [address] [place] [address] Business (1) Within 2 weeks With: Address: When: Follow up with primary care provider Within 1 to 2 weeks With: Address: When: AJAY KRYS 10:00 AM Comments: BROCK Check in at [facility] @ 10:00 NPO after midnight Discharge Instructions: Immunizations Documented During Stay: No Immunizations Found Discharge Summary Sent to: [facility] [phone] Special Instructions: Report: [facility] [phone] Heart Failure Discharge Instructions (if any): Stroke [...] these instructions at home: Medicines ??? Take ckbc-hzy-cjwxxgo and prescription medicines only as told by [...] 01/28/2006 Document Revised: 11/09/2016 Document Reviewed: 11/09/2016 [employer] Interactive Patient Education ? 2017 [employer] CIGARETTE SMOKING: The facts are clear, cigarette smoking will shorten your life. Smoking can cause many illnesses along the way. As a healthcare provider, we recommend that you stop smoking. Assistance with quitting is available by contacting 8-914-AFLI-NOW. This is a free resource providing counseling, [...] Be sure to sign up for the [employer] patient portal, which gives you 24/ access to your medical information ??? including these discharge instructions ??? using your computer, smartphone, or tablet. Just go to Capriza to get started. Questions? Call . [facility] would like to thank you for allowing us to assist you with your healthcare needs. GERTRUDE Mcconnell VERONICA G, (or arborist representative) have received the above patient education materials/instructions and have verbalized understanding: Patient Signature _ Date/Time Patient Planning Management It Specialist Signature (if needed) Date/Time Clinician/Hospital Planning Management It Specialist Signature (if needed) Date/Time documented in this encounter Plan of Treatment Not on file documented as of this encounter Visit Diagnoses Not on filedocumented in this encounter
--- OUTSIDE RECORDS SUMMARY | 2025-01-08 06:51 | XMS_ITS | Encounter Summary ---
Author Organization [employer] ([place], [place], [place], [place], [place]) Address [address] [place] [address] Care Team Providers Care Supervisor Inspection And Testing Name Role Phone Unavailable Primary Care Provider Unavailabl e Encounter Details Date Type Department Care Team (Late st Contact Info) Description 05/07/2018 Transcribed Document [facility] [place] Family Medicine [address] [place] [address] ProviderZion MD [address] [place] [address] Social History Tobacco Use Types [...]
--- OUTSIDE RECORDS SUMMARY | 2025-01-08 06:51 | XMS_ITS | Encounter Summary ---
Author Organization [employer] ([place], [place], [place], [place], [place]) Address [address] [place] [address] Care Team Providers Care Brush Maker Machine Name Role Phone Unavailable Primary Care Provider Unavailabl e Encounter Details Date Type Department Care Team (Late st Contact Info) Description 05/07/2018 Transcribed Document [facility] [place] Family Medicine [facility] [place] [address] ProviderZion MD [address] [place] [address] Social History Tobacco Use Types Packs/Day [...] Zion ProviderMD - 05/07/2018 4:09 PM CDT [address] [place] [address] Patient Copy Patient Information: Name: ETHAN CRONIN Current Date: 05/07/2018 16:09:51 : 1960 Patient Address: [address] [place] [phone] Patient Attending Physician: AJAY MARCANO MD-GUICHO Primary Care Provider: SUJIT DAWKINS (REF)IFTIKHAR Primary Care Provider Discharge Diagnosis: Weight on Admission: 163 lb, 0 oz Comment: Follow-up Instructions: With: Address: When: JOHN TSAI [address] [facility] [place] [address] [employer]) 11:45 AM With: Address: Jenn: AJAY MARCANO [address] [facility], [address] [place] [address] [employer] (1) Within 2 to 3 days Comments: [...] you are awake and alert. ??? Take wlpm-wfd-sokqyww and prescription medicines only as told by [...] 11/18/2013 Document Revised: 07/02/2016 Document Reviewed: 05/19/2016 [employer] Interactive Patient Education ? 2017 [employer] Transesophageal Echocardiogram Transesophageal echocardiography (BROCK) is [...] 11/25/2009 Document Revised: 07/05/2016 Document Reviewed: 07/30/2013 [employer] Interactive Patient Education ? 2017 [employer] CIGARETTE SMOKING: The facts are clear, cigarette smoking will shorten your life. Smoking can cause many illnesses along the way. As a healthcare provider, we recommend that you stop smoking. Assistance with quitting is available by contacting 4-386-IHVS-NOW. This is a free resource providing counseling, [...] Be sure to sign up for the [employer] patient portal, which gives you 03/09 access to your medical information ??? including these discharge instructions ??? using your computer, smartphone, or tablet. Just go to [employer] to get started. Questions? Call . [facility] would like to thank you for allowing us to assist you with your healthcare needs. GERTRUDE Mcconnell VERONICA GAY, (or manufacturing sales representative) have received the above patient education materials/instructions and have verbalized understanding: Patient Signature _ Date/Time Patient Seo Analyst Signature (if needed) Date/Time Clinician/Hospital Seo Analyst Signature (if needed) Date/Time Electronically signed by Interface, [facility] Conversion Crew Member Cerner at 05/29/2022 8:55 PM CDT documented in this encounter Plan of Treatment Not on file documented as of this encounter Visit Diagnoses Not on filedocumented in this encounter
--- OUTSIDE RECORDS SUMMARY | 2025-01-08 06:51 | XMS_ITS | Encounter Summary ---
Author Organization [employer] ([place], [place], [place], [place], [place]) Address [address] [place] [address] Care Team Providers Care Supply Chain Assistant Name Role Phone Unavailable Primary Care Provider Unavailabl e Encounter Details Date Type Department Care Team (Late st Contact Info) Description 05/07/2018 Transcribed Document [facility] [place] [address] ProviderZion MD [address] [place] [address] Social History Tobacco Use Types Packs/Day [...] Zion ProviderMD - 05/07/2018 1:16 PM CDT [address] [place] [address] Patient Copy Patient Information: Name: ETHAN CRONIN Current Date: 05/07/2018 13:16:44 : 1960 Patient Address: [address] [place] [phone] Patient Attending Physician: AJAY MARCANO MD-CAR Primary Care Provider: SUJIT DAWKINS (REF)IFTIKHAR Primary Care Provider Discharge Diagnosis: Weight on Admission: 163 lb, 0 oz Comment: Follow-up Instructions: With: Address: When: AJAY MARCANO [address] [facility], [address] [place] [phone] Business ([employer] Within 2 to 3 days Comments: Follow-up [...] 11/25/2009 Document Revised: 07/05/2016 Document Reviewed: 07/30/2013 [employer] Interactive Patient Education ? 2017 [employer]. CIGARETTE SMOKING: The facts are clear, cigarette smoking will shorten your life. Smoking can cause many illnesses along the way. As a healthcare provider, we recommend that you stop smoking. Assistance with quitting is available by contacting 5-082-CVKT-NOW. This is a free resource providing counseling, [...] Be sure to sign up for the [employer] patient portal, which gives you 03/09 access to your medical information ??? including these discharge instructions ??? using your computer, smartphone, or tablet. Just go to [employer] to get started. Questions? Call . [facility] would like to thank you for allowing us to assist you with your healthcare needs. GERTRUDE Mcconnell VERONICA GAY, (or sales representative door to door) have received the above patient education materials/instructions and have verbalized understanding: Patient Signature _ Date/Time Patient Manager Process Improvement Signature (if needed) Date/Time Clinician/Hospital Manager Process Improvement Signature (if needed) Date/Time Electronically signed by Jorge Alberto, [facility] Conversion Monogram And Letter Paster Cerner at 05/29/2022 8:56 PM CDT documented in this encounter Plan of Treatment Not on file documented as of this encounter Visit Diagnoses Not on filedocumented in this encounter
--- OUTSIDE RECORDS SUMMARY | 2025-01-08 06:51 | XMS_ITS | Encounter Summary ---
Author Organization [employer] ([place], [place], [place], [place], [place]) Address [address] [place] [address] Care Team Providers Care Hadoop Administrator Name Role Phone Unavailable Primary Care Provider Unavailabl e Encounter Details Date Type Department Care Team (Late st Contact Info) Description 05/07/2018 Transcribed Document [facility] [place] Medicine [address] [place] [address] ProviderZion MD [address] [place] [address] Social History Tobacco Use Types [...] you are awake and alert. ??? Take pirr-wev-gsrvhdq and prescription medicines only as told by [...] 11/18/2013 Document Revised: 07/02/2016 Document Reviewed: 05/19/2016 [employer] Interactive Patient Education ? 2017 [employer] Radiology Transesophageal Echocardiogram Transesophageal echocardiography (BROCK) [...] 11/25/2009 Document Revised: 07/05/2016 Document Reviewed: 07/30/2013 [employer] Interactive Patient Education ? 2017 [employer] documented in this encounter Plan of Treatment Not on file documented as of this encounter Visit Diagnoses Not on filedocumented in this encounter
--- OUTSIDE RECORDS SUMMARY | 2025-01-08 06:51 | XMS_ITS | Encounter Summary ---
Author Organization [employer] ([place], [place], [place], [place], [place]) Address [address] [place] [address] Care Team Providers Care Mirror Framer Name Role Phone Unavailable Primary Care Provider Unavailabl e Encounter Details Date Type Department Care Team (Late st Contact Info) Description 03/29/2018 Transcribed Document [facility] [place] Family Medicine [facility] [place] [address] ProviderZion MD [address] [place] [id number] Social History Tobacco Use Types Packs/Day Years Used Date Smoking Tobacco: Never Assessed Comments Unknown Sex and Gender Information Value Date Recorded Sex Assigned at Not on file Legal Sex Female 4:39 PM CDT Gender Identity Not on file Sexual Orientation Not on file documented as of this encounter Miscellaneous Notes * [employer]ner Conversion Note - Zion Alonso MD - 03/29/2018 8:09 AM OUTSIDE CUTTER HAND Patient: ETHAN CRONIN Age: 57 years Sex: Female : 1960 Associated Diagnoses: None Author: CARROLL HIGH MD-INF Basic Information CC: Sepsis bacteremia 03/19/18 4/4 bottles for Group b strep ([facility]), mitral prosthetic valve endocarditis History of Present Illness 57-year-old white female with history of bladder cancer, atrial flutter, pacemaker placement 2016, hypertension, DM2, COPD, pancreatitis, who recently had blood cultures obtained at [facility] on 03/19/18 for fever which were positive in 4 out of 4 bottles for group B Streptococcus. Patient was to start IV antibiotics but was found to have bradycardia and was admitted to [facility] on 03/23/17. I was consulted on 03/25/17. The patient had been started on vancomycin and Rocephin. Urine culture obtained at [facility] was positive for multiple bacteria consistent with [...] cefTRIAXone (Rocephin) - 2 Gram, IV Piggyback, [id number], infuse over 30 Minute(s), Routine Anticoagulant heparin [...] Normal strength, No tenderness. Integumentary: Warm, Dry, [place], No pallor, No rash, Left chest wall [...] blood culture bottles positive at [facility] (spoke to Maurice Spencer, at [facility]). BROCK consistent with mitral valve [...] Dr. Perez's service, cardiology, and Dr. Alan.. executive office manager: Please arrange for outpatient IV antibiotics with Rocephin 2 g IV every 12 hours until 05/04/18. Follow CBC, CMP, CRP weekly while on IV antibiotics. Fax orders to [phone], and call [phone] with final arrangements. Arrange for follow-up with me in 2 weeks post discharge. documented in this encounter Plan of Treatment Not on file documented as of this encounter Visit Diagnoses Not on filedocumented in this encounter
--- OUTSIDE RECORDS SUMMARY | 2025-01-08 06:51 | XMS_ITS | Encounter Summary ---
Author Organization [employer] ([place], [place], [place], [place], [place]) Address [address] [place] [address] Care Team Providers Care Computer Programmer Chief Name Role Phone Unavailable Primary Care Provider Unavailabl e Encounter Details Date Type Department Care Team (Late st Contact Info) Description 03/29/2018 Transcribed Document [facility] [place] Family Medicine [address] [place] [address] ProviderZion MD [address] [place] [address] Social History Tobacco Use Types [...] - Zion ProviderMD - 03/29/2018 11:59 PM MICROELECTRONICS ASSEMBLER Patient: ETHAN CRONIN Age: 57 years [...] At Bedtime Rocephin 2 Gram, IV Piggyback, [id number]...until 05/04/18 for 6 weeks ID recommendations: continue Rocephin 2 g IV every 12 hours to continue until 05/04/18 for 6 weeks. Then may suppress afterwards with penicillin VK 250 mg by mouth twice a day for life. Follow up: ======= Follow up with PCP in 1-2 wks Follow up with Cardiology in 2-4 wks BROCK in 4-[address] Alan at [facility]. follow up with ID in 2 weeks [...] to have bradycardia and was admitted to [facility] on 03/23/17. Urine culture obtained at [facility] - [...]
--- OUTSIDE RECORDS SUMMARY | 2025-01-08 06:51 | XMS_ITS | Encounter Summary ---
Author Organization [employer] ([place], [place], [place], [place], [place]) Address [address] [place] [address] Care Team Providers Care Pipeline Integrity Engineer Name Role Phone Unavailable Primary Care Provider Unavailabl e Encounter Details Date Type Department Care Team (Late st Contact Info) Description 03/23/2018 Transcribed Document [facility] [place] Family Medicine [address] [place] [address] ProviderZion MD [address] [place], [place] [phone] Social History Tobacco Use Types Packs/Day Years Used Date Smoking Tobacco: Never Assessed Comments Unknown Sex and Gender Information Value Date Recorded Sex Assigned at Not on file Legal Sex Female 4:39 PM CDT Gender Identity Not on file Sexual Orientation Not on file documented as of this encounter Miscellaneous Notes * Cerner Conversion Note - Zion ProviderMD - 03/23/2018 7:32 PM WOOL BATTING WORKER DATE OF ADMISSION: 03/23/2018 PRIMARY CARE PHYSICIAN: [...] to [facility]. Patient was at [facility] ER, came in, laying in bed, [...]
--- OUTSIDE RECORDS SUMMARY | 2025-01-08 06:51 | XMS_ITS | Encounter Summary ---
Author Organization [employer] ([place], [place], [place], [place], [place]) Address [address] [place] [address] Care Team Providers Care Dining Room Cashier Name Role Phone Unavailable Primary Care Provider Unavailabl e Encounter Details Date Type Department Care Team (Late st Contact Info) Description 05/07/2018 Transcribed Document [facility] [place] [address] [place] [address] ProviderZion MD [address] [place] [phone] Social History Tobacco Use Types Packs/Day Years [...] EDT Electronically signed by Jorge Alberto [facility] Conversion Corporate Driver Cerner at 05/29/2022 8:32 PM CDT documented in this encounter Plan of Treatment Not on file documented as of this encounter Visit Diagnoses Not on filedocumented in this encounter
--- OUTSIDE RECORDS SUMMARY | 2025-01-08 06:51 | XMS_ITS | Encounter Summary ---
Author Organization [employer] ([place], [place], [place], [place], [place]) Address [address] [place] [address] Care Team Providers Care Boxing Inspector Name Role Phone Unavailable Primary Care Provider Unavailabl e Encounter Details Date Type Department Care Team (Late st Contact Info) Description 03/29/2018 Transcribed Document [facility] [place] [address] [place] [address] ProviderZion MD [address] [place] [address] Social History Tobacco Use [...] - Zion ProviderMD - 03/29/2018 3:54 PM PIPER HELPER Patient Education Materials Follows:Disease Endocarditis Endocarditis is [...] these instructions at home: Medicines ??? Take unsq-dse-opbdyjn and prescription medicines only as told by [...] 01/28/2006 Document Revised: 11/09/2016 Document Reviewed: 11/09/2016 [employer] Interactive Patient Education ? 2017 [employer] documented in this encounter Plan of Treatment Not on file documented as of this encounter Visit Diagnoses Not on filedocumented in this encounter
--- OUTSIDE RECORDS SUMMARY | 2025-01-08 06:51 | XMS_ITS | Encounter Summary ---
Author Organization [employer] ([place], [place], [place], [place], [place]) Address [address] [place] [address] Care Team Providers Care Seeing Eye Dog Teacher Name Role Phone Unavailable Primary Care Provider Unavailabl e Encounter Details Date Type Department Care Team (Late st Contact Info) Description 03/25/2018 Transcribed Document [facility] [place] Family Medicine [address] [place] [address] ProviderZion MD [address] [place] [address] Social History Tobacco Use Types [...] - Historical ProviderMD - 03/25/2018 5:00 PM RIVET MAKER Chart Check - Review Order Profile Entered On: 03/25/2018 17:06 EST Performed On: 03/25/2018 17:00 EST by Ric Bautista RN Chart Check Chart Reviewed Date and Time : 03/25/2018 17:06 EST Powerplans Initiated/Discontinued as Appropriate : Yes All Active Orders Reviewed : Yes Ric Bautista, REGULO - 03/25/2018 17:06 EST Electronically signed by Vinayak Azul Conversion Inventory And Pricing Associate Cerner at 05/29/2022 8:46 PM CDT documented in this encounter Plan of Treatment Not on file documented as of this encounter Visit Diagnoses Not on filedocumented in this encounter
[2025-01-08 06:57] VITALS: BP 132/78; PULSE 71; RESP 18; TEMP 36.6; O2SAT 98
[2025-01-08] MEDS: SULFA/TRIMETHOPRIM 1 TABLET 2 EACH PO (06:59)
--- NOTE | 2025-01-08 07:14 | PC.NURSE ---
0700 care handoff report received from Les RAJPUT
--- NOTE | 2025-01-08 07:22 | PC.NURSE ---
report called to Oly RAJPUT at [facility]. Pt pending ems transport back
[2025-01-08 08:14] VITALS: BP 123/74; PULSE 87; RESP 18; TEMP 36.8; O2SAT 98
== END 2025-01-08 08:16 | disposition home or self-care (01) ==
PROVIDERS: Emergency Provider Emergency Medicine; PCP Family Medicine
DX: N61.0 Mastitis without abscess (principal); B37.2 Candidiasis of skin and nail
CPT/HCPCS: 99282; 99283

== ENCOUNTER 2025-01-11 06:15 | Outpatient (CLI) | payer MEDICARE, SELFPAY ==
--- OUTSIDE RECORDS SUMMARY | 2024-11-13 10:20 | XMS_ITS | Encounter Summary ---
Author Organization Healthcare Address [address] [place] [address] Care Team Providers Care Brand Marketing Manager Name Role Phone Cosme Davis MD Primary Care Provider [phone] Reason for Referral * Consultation (Routine) - Authorized Specialty Diagnoses / Procedures Referred By Yogi tapia Referred To Contact Physical Therapy Diagnoses Pain in pelvis Smiley Negrete PA [address] [facility] [address] [place] [address] Phone: tel: fax: Referral ID Status Reason Start Date Expiration Date Visits Requested Visits Authorized [id number] Authorized Consult and Treat 11/13/2024 05/15/2026 1 1 Reason for Visit * Reason Comments Follow-up Encounter Details Date Type Department Care Team (Late st Contact Info) Description 11/13/2024 11:20 AM EDT [facility] Visit [facility] [address] [place] [address] Paulo Darnell MD [address] [facility] [address] [place] [address] Pain in pelvis (Primary Dx) [...] and Family Not on file 10/13/2024 Attends Hindu Services Not on file 10/13 Active Member [...] any time in the past 12 m [facility], were you homeless or living in a prison (including now)? No 10/13/2024 [facility] Utilities Answer Date Recorded In the past 12 months has [employer], gas, oil, or water [employer] threatened to shut off services in your [...] follow up. She has been in a jail facility. She has been working with physical [...] by mouth daily., Disp: , Rfl: HYDROcodone-acetaminophen ([place]) 5-325 MG tablet, , Disp: , Rfl: [...] Info) Description 01/21/2025 1:30 PM EST Appointment [facility] [address] [place] [address] 01/21/2025 2:00 PM EST Appointment [facility] [address] [place] [address] 01/21/2025 2:40 PM EST Office Visit [facility] [address] [place] [address] Jose Rosario MD [address] [place] [address] Scheduled Referrals Name Type Priority [...] documented as of this encounter Care Teams Brand Marketing Manager Relationship Specialty Start Date End Date Cosme Davis MD [address] [place] [address] PCP - General 06/24/20 documented as of this encounter
--- OUTSIDE RECORDS SUMMARY | 2024-11-13 10:23 | XMS_ITS | Encounter Summary ---
Author Organization Healthcare Address [address] [place] [address] Care Team Providers Care Servomechanism Designer Name Role Phone Cosme Davis MD Primary Care Provider [phone] Encounter Details Date Type Department Care Team (Latest Contact Info) Description 11/13/2024 11:23 AM EDT - 11/13/2024 11:59 PM EDT Hospital Encounter [place] [facility] [address], 1st [place] [address] Pain in pelvis Discharge Disposition: Home or [...] and Family Not on file 10/13/2024 Attends [employer] Services Not on file 10/13 Active Member [...] any time in the past 12 m [facility], were you homeless or living in a alf (including now)? No 10/13/2024 [facility] Utilities Answer Date Recorded In the past 12 months has th e [employer], gas, oil, or water company threatened to [...] tablet by mouth daily. 08/21/2018 HYDROcodone-acet aminophen ([place]) 5-325 MG tablet 11/02/2024 insulin glargine (Lantus) [...] Description 01/21/2025 1:30 PM EST Appointment [facility] [address] Floor [address], [address] [place] [address] 01/21/2025 2:00 PM EST Appointment [facility] [address] Floor [address], [address] [place] [address] 01/21/2025 2:40 PM EST Office Visit [facility] [address], [address] [place] [address] Jose Rosario MD [address] [facility] [address] [place] [address] documented as of this encounter Procedures Procedure [...] documented as of this encounter Care Teams Servomechanism Designer Relationship Specialty Start Date End Date Cosme Davis MD [address] [place] [address] PCP - General 06/24/20 documented as of this encounter
--- OUTSIDE RECORDS SUMMARY | 2025-01-11 06:18 | XMS_ITS | Encounter Summary ---
Author Organization [employer] ([place], [place], [place], [place], [place]) Address [address] [place] [address] Care Team Providers Care Chummer Name Role Phone Unavailable Primary Care Provider Unavailabl e Encounter Details Date Type Department Care Team (Late st Contact Info) Description 03/29/2018 Transcribed Document [facility] [place] Family Medicine [address] [place] [address] ProviderZion MD [address] [place] [address] Social History Tobacco Use Types [...] - Zion ProviderMD - 03/29/2018 3:30 PM INSPECTOR CIRCUITRY NEGATIVE Care Management Assessment/Plan Entered On: 03/29/2018 15:31 EST Performed On: 03/29/2018 15:30 EST by Odalys Bush Rn-Biopharmaceutical RepStock Blender Note Anticipated Discharge Date : 03/30/2018 14:00 EST Care Management Note : Patient discharge summary sent through [facility]. Care Management Note Report : Odalys Bush Rn-Biopharmaceutical Rep - 03/29/18 13:22:06 Confirmed with [facility] that patient can transfer today [phone]; [phone]. Spoke with patient's daughter Jazmine [phone] who plans to transport[address] Dr. Hamilton advised and dishcarge pharmacy aware. Patient should be ready to transport by 15:00. Ninoska Cuellar Rn-Biopharmaceutical Rep Ed - 03/28/18 20:23:22 CM faxed orders to [facility] for IV abx f [phone] per md orders. CM will need to call [facility] to notify them of final d/c plan per MD orders p [phone]. CM to follow for ongoing d/c planning/needs. Ninoska Cuellar, Rn-Biopharmaceutical Rep Ed - 03/28/18 18:12:15 CM recieved call from Gama at [facility] stating they can take pt at their facility, but not until Saturday, as they now have an agreement with [facility]. CM then spoke with Edie from [facility] and she again confirms they can accept pt at their facility tomorrow. CM updated pt and now pt is agreeable to go to [facility]. She also gave CM permission to speak with Jazmine joshi by phone p [phone]. CM spoke with Jazmine and she is agreeable with plan for [facility], stating its much closer to them, approx 30 min. Pt tells CM that her PCP, Dr. Davis had told her that she was not able to do IV abx from home. Discharge plan will be to go to [facility] in the am. CM updated Dr. Stauffer and he reports he will notify [facility] for tomorrow. CM will cont to follow for ongoing d/c planning/needs. Ninoska Cuellar, Rn-Biopharmaceutical Rep Ed - 03/28/18 16:01:02 Rubi[facility] Clem states home cost for Rocephin is $3.70/wk. She states they may be able to contract with SNF to provide abx at pt's cost. She asked CM to have SNF call Paulo at their office to see about arranging. CM called MADELYN Corona with [facility] and she will call [facility] to see if this can be arranged. Updated BS RNAva. CM will cont to follow. Ninoska Cuellar, Rn-Biopharmaceutical Rep Ed - 03/28/18 14:57:29 Called [facility] and spoke with Chiquita and updated her on IV abx needs. SHe will check cost and call CM back to see if bed offer is still on the table. CM left for [facility] with Pione[facility] Raines to update her, left requesting return phone call. CM updated pt and she appears discouraged that [facility] will not accept her as a pt. She tells CM that she is considering just going home. BLAKE also called Mariahjesus with [facility] to argueta abx at home. She states that [facility] may also be able to contract with facility to provide them with abx at their cost. CM faxed info on pt and abx to [facility] f [phone]. CM updated BS RN, Ava. CM will cont to follow. Ninoska Cuellar, Rn-Biopharmaceutical Rep Ed - 03/28/18 14:21:[address] Jones this am and he tells CM that pt is ready for discharge from his standpoint and that ID has a plan in place for IV abx. PT does have a PICC in place. Recieved VM from [facility] with [facility] p [phone] stating they are interested in pt. CM went to BS to speak with pt to discuss bed offers. CM presented bed offers and pt tells CM that she really doesn't want to go to another facility. Pt tells CM that she only wants to go to [facility], as she has been there in the past. [facility] had not make bed offer at this time. BLAKE called and spoke with Gama in admissions at [facility] and she tells CM that per her DON, they do not believe they can meet pt's needs at this time. CM pressed for more information and Gama told CM that she would have DON call her. -BLAKE then spoke with MADELYN Corona at [facility] and she states that pt appears too sick at this time to come to their facility. BLAKE provided her with verbal updates, as well as faxed updates f [phone]. She states they will reevaluate now, knowing [...] pt at this time due to the $6952-2869 IV rocephin cost through 05/04/[address] Diaz orders. Cm to follow for ongoing d/c planning/needs. Stew Proras, RN - 03/27/18 16:25:12 edie from [facility] ( [phone]) called to make bed offer. bed offers will be presented to pt 03/28. [phone] Stew Porras, RN - 03/27/18 15:00:29 spoke to ID who states pt maybe ready for dc as early as 03/28. id and attending PA are recommending SNF. spoke with pt and her dtr, jazmine and informed them of suggestion from drs to dc to snf for iv abx. pt and dtr in agreement and referrlas made via [id number] to the following [place].... [place]. Stew Porras, REGULO - 03/27/18 10:34:34 RRS-43 + for BROCK CT consulted and per ID, infection must clear prior to any ant surgical intervention Currnelty on rocephin iv w/bld cx pending Documentation Status Complete : Yes Odalys Bush Rn-Biopharmaceutical Rep - 03/29/2018 15:30 EST Info/List/Choices Provided Patient Offered Choice/Affiliations Explained : Yes List/Info Provided Pt/Fam/Support Person : half-way facilities Odalys Bush Rn-Biopharmaceutical Rep - 03/29/2018 15:30 EST Final Discharge Disposition Note-CM Final Discharge Disposition Note-CM : Transport by Family. Discharge To Care Management : SNF with Medicare Certification-03 Name of Receiving Facility/Provider- : [facility] Odalys Bush Rn-Biopharmaceutical Rep - 03/29/2018 15:30 EST documented in this encounter Plan of Treatment Not on file documented as of this encounter Visit Diagnoses Not on filedocumented in this encounter
--- OUTSIDE RECORDS SUMMARY | 2025-01-11 06:18 | XMS_ITS | Encounter Summary ---
Author Organization [employer] ([place], [place], [place], [place], [place]) Address [address] [place] [address] Care Team Providers Care Android Framework Developer Name Role Phone Unavailable Primary Care Provider Unavailabl e Encounter Details Date Type Department Care Team (Late st Contact Info) Description 03/29/2018 Transcribed Document [facility] [place] Family Medicine [address] [place] [address] ProviderZion MD [address] [place] [address] Social History Tobacco Use Types Packs/Day Years Used Date Smoking Tobacco: Never Assessed Comments Unknown Sex and Gender Information Value Date Recorded Sex Assigned at Not on file Legal Sex Female 4:39 PM CDT Gender Identity Not on file Sexual Orientation Not on file documented as of this encounter Miscellaneous Notes * Cerner Conversion Note - Historical ProviderMD - 03/29/2018 1:22 PM COMBAT SYSTEMS OPERATOR Nursing Discharge Summary Entered On: 03/29/2018 13:22 EST Performed On: 03/29/2018 13:22 EST by Odalys Bush Rn-Supervisor Grower Discharge Documentation Discharge, Comment : Report: Joshua [phone] Discharge Summary Sent to : Joshua [phone] Odalys Bush Rn-Supervisor Grower - 03/29/2018 13:22 EST Electronically signed by Jorge Alberto [facility] Conversion Desolderer Cerner at 05/29/2022 8:31 PM CDT documented in this encounter Plan of Treatment Not on file documented as of this encounter Visit Diagnoses Not on filedocumented in this encounter
--- OUTSIDE RECORDS SUMMARY | 2025-01-11 06:18 | XMS_ITS | Encounter Summary ---
Author Organization [employer] ([place], [place], [place], [place], [place]) Address [address] [place] [address] Care Team Providers Care Geoscientist Name Role Phone Unavailable Primary Care Provider Unavailabl e Encounter Details Date Type Department Care Team (Late st Contact Info) Description 03/28/2018 Transcribed Document [facility] [place] [facility] [place] [address] ProviderZion MD [address] [place] [id number] Social History Tobacco Use Types Packs/Day Years Used Date Smoking Tobacco: Never Assessed Comments Unknown Sex and Gender Information Value Date Recorded Sex Assigned at Not on file Legal Sex Female 4:39 PM CDT Gender Identity Not on file Sexual Orientation Not on file documented as of this encounter Miscellaneous Notes * Cerner Conversion Note - Zion Alonso MD - 03/28/2018 12:56 PM INSTALLATION SUPERVISOR Patient: ETHAN CRONIN Age: 57 years Sex: Female : 1960 Associated Diagnoses: None Author: CARROLL HIGH MD-INF Basic Information CC: Sepsis bacteremia 03/19/18 4/4 bottles for Group b strep ([facility]), mitral prosthetic valve endocarditis History of Present Illness 57-year-old white female with history of bladder cancer, atrial flutter, pacemaker placement 2016, hypertension, DM2, COPD, pancreatitis, who recently had blood cultures obtained at [facility] on 03/19/18 for fever which were positive in 4 out of 4 bottles for group B Streptococcus. Patient was to start IV antibiotics but was found to have bradycardia and was admitted to [facility] on 03/23/17. I was consulted on 03/25/17. The patient had been started on vancomycin and Rocephin. Urine culture obtained at [facility] was positive for multiple bacteria [...] cefTRIAXone (Rocephin) - 2 Gram, IV Piggyback, [id number], infuse over 30 Minute(s), Routine Anticoagulant heparin [...] Normal strength, No tenderness. Integumentary: Warm, Dry, [place], No pallor, No rash, Left chest wall [...] 23) Troponin <0.015 (MAR 23) , ACC: [id number] ORDER: Culture Blood DATE: 03/23/2018 17:49 SOURCE: Blood SITE: Reports Pre 03/27/2018 23:01 No growth at 4 days. Pre 03/26/2018 23:01 No growth at 3 days. Pre 03/25/2018 23:01 No growth at 2 days. Pre 03/24/2018 23:02 No growth at 1 day. Pre 03/24/2018 16:03 Culture less than 24 Hrs old == ACC: [id number] ORDER: Culture Blood DATE: 03/23/2018 17:49 SOURCE: [...] of 4 blood culture bottles positive at [facility] (spoke to Maurice Spencer, at [facility]). BROCK consistent with mitral valve endocarditis, [...] Perez's service, cardiology, and Dr. Alan.. manager flight: Please arrange for outpatient IV antibiotics with Rocephin 2 g IV every 12 hours until 05/04/18. Follow CBC, CMP, CRP weekly while on IV antibiotics. Fax orders to [phone], and call [phone] with final arrangements. Arrange for follow-up with me in 2 weeks post discharge. Electronically signed by Vinayak Azul Conversion Communications Supervisor Bartolomener at 05/29/2022 8:48 PM CDT documented in this encounter Plan of Treatment Not on file documented as of this encounter Visit Diagnoses Not on filedocumented in this encounter
--- OUTSIDE RECORDS SUMMARY | 2025-01-11 06:18 | XMS_ITS | Encounter Summary ---
Author Organization [employer] ([place], [place], [place], [place], [place]) Address [address] [place] [address] Care Team Providers Care Carbon Brusher Assembler Name Role Phone Unavailable Primary Care Provider Unavailabl e Encounter Details Date Type Department Care Team (Late st Contact Info) Description 03/28/2018 Transcribed Document [facility] [place] [address] [place] [address] ProviderZion MD [address] [place] [address] Social History Tobacco Use Types [...] - Historical ProviderMD - 03/28/2018 2:01 PM CODING SPECIALIST Care Management Assessment/Plan Entered On: 03/28/2018 14:21 EST Performed On: 03/28/2018 14:01 EST by Ninoska Cuellar Rn-Buffing Wheel Operator Ed Care Management Note Anticipated Discharge Date : 04/03/2018 14:00 EST Care Management Note : CM spoke with Dr. Jones this am and he tells CM that pt is ready for discharge from his standpoint and that ID has a plan in place for IV abx. PT does have a PICC in place. Recieved VM from [facility] p [phone] stating they are interested in pt. CM went to to speak with pt to discuss bed offers. CM presented bed offers and pt tells CM that she really doesn't want to go to another facility. Pt tells CM that she only wants to go to [facility], as she has been there in the past. [facility] had not make bed offer at this time. BLAKE called and spoke with Gama in admissions at [facility] and she tells CM that per her DON, they do not believe they can meet pt's needs at this time. BLAKE pressed for more information and Gama told CM that she would have DON call her. -CM then spoke with MADELYN Corona at [facility] and she states that pt appears too sick at this time to come to their facility. CM provided her with verbal updates, as well as faxed updates f [phone]. She states they will reevaluate now, knowing [...] pt at this time due to the $7754-7711 IV rocephin cost through 05/04/[address] Diaz orders. Cm to follow for ongoing d/c planning/needs. Care Management Note Report : Stew Porras, REGULO - 03/27/18 16:25:12 blayne from [facility] ( [phone]) called to make bed offer. bed offers will be presented to pt 03/28. [place] [phone] Stew Porras, REGULO - 03/27/18 15:00:29 spoke to ID who states pt maybe ready for dc as early as 03/28. id and attending PA are recommending SNF. spoke with pt and her dtr, jazmine and informed them of suggestion from drs to dc to snf for iv abx. pt and dtr in agreement and referrlas made via [facility] to the following counties.... [place]. Stew Porras, REGULO - 03/27/18 10:34:34 RRS-43 + for BROCK CT consulted and per ID, infection must clear prior to any ant surgical intervention Currnelty on rocephin iv w/bld cx pending Documentation Status Complete : Yes Ninoska Cuellar, Rn-Buffing Wheel Operator Ed - 03/28/2018 14:01 EST Electronically signed by [facility], [facility] Conversion Drawing Press Operator Cerner at 05/29/2022 8:46 PM CDT documented in this encounter Plan of Treatment Not on file documented as of this encounter Visit Diagnoses Not on filedocumented in this encounter
--- OUTSIDE RECORDS SUMMARY | 2025-01-11 06:18 | XMS_ITS | Encounter Summary ---
Author Organization [employer] ([place], [place], [place], [place], [place]) Address [address] [place] [address] Care Team Providers Care Rabbit Fancier Name Role Phone Unavailable Primary Care Provider Unavailabl e Encounter Details Date Type Department Care Team (Late st Contact Info) Description 03/28/2018 Transcribed Document [facility] [place] [address] [place] [address] ProviderZion MD [address] [place], [place] [id number] Social History Tobacco Use Types Packs/Day Years Used Date Smoking Tobacco: Never Assessed Comments Unknown Sex and Gender Information Value Date Recorded Sex Assigned at Not on file Legal Sex Female 4:39 PM CDT Gender Identity Not on file Sexual Orientation Not on file documented as of this encounter Miscellaneous Notes * Cerner Conversion Note - Zion ProviderMD - 03/28/2018 6:04 PM PATCH WORKER Patient: ETHAN LOREDO Age: 57 years [...] Rocephin: 2 Gram, 100 mL/Hr, IV Piggyback, [id number] Tylenol: 650 mg, Oral, Q4H, PRN: Other [...] Oral, Daily cefTRIAXone 2 Gram, IV Piggyback, A24LJet citalopram 20 mg tab 20 mg 1 [...]
--- OUTSIDE RECORDS SUMMARY | 2025-01-11 06:18 | XMS_ITS | Encounter Summary ---
Author Organization Healthcare Address [address] [place] [address] Care Team Providers Care Squeegee Finisher Name Role Phone Cosme Davis MD Primary Care Provider [phone] Encounter Details Date Type Department Care Team [...] and Family Not on file 10/13/2024 Attends Holiness Services Not on file 10/13 Active Member [...] time in the past 12 m [facility], were you homeless or living in a custodial (including now)? No 10/13/2024 [facility] Utilities Answer Date Recorded In [...] EST Appointment [facility] [address] [place] [address] 01/21/2025 2:00 PM EST Appointment [facility] [address] [place] [address] 01/21/2025 2:40 PM EST Office Visit [facility] [address] [place] [address] Jose Rosario MD [address] [place] [address] documented as of [...] documented as of this encounter Care Teams Squeegee Finisher Relationship Specialty Start Date End Date Cosme Davis MD [address] [place] [address] PCP - General 06/24/20 documented as of this encounter
--- OUTSIDE RECORDS SUMMARY | 2025-01-11 06:18 | XMS_ITS | Clinical Summary ---
Author Organization [facility] Address [address] [place] [address] Phone Care Team Providers Care Oil Seal Assembler Name Role Phone Kar RAJPUT, Willa Molina Unavailable Conditions or Problems Problem Name Problem Code Onset Date Status Entry Date Provider Comment Standard Description Annotate Other obesity due to excess calories 356428445 (SNOMED CT) 06/03 Active 06/03 Sharona Annamaria Simple obesity Nicotine dependence 39516352 (SNOMED CT) 06/03 Active 06/03 Sharona Yin Nicotine dependence Coronary artery disease, S/P CABG 80894165 (SNOMED CT) 04/11 Active 04/11 Elvira Beth Coronary arteriosclerosis ARF due to infection 117138034 (SNOMED CT) 04/11 Active 04/11 Elvira Beth Acute renal failure due to ischemia Heart valve prosthesis, infection/inf lammatory reaction, subsequent encounter T82.6xxD (ICD-10-CM ) 04/11 Active 04/11 Elvira Beth 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, subsequent encounter Acute and subacute bacterial endocarditis 015592640 (SNOMED CT) 04/11 Active 04/11 Elvira Beth Acute and subacute bacterial endocarditis Group B strep sepsis A40.1 (ICD-10-CM ) 04/11 Active 04/11 Elvira Beth Sepsis due to streptococcus, group B DM Type II 33978357 (SNOMED CT) 04/11 Active 04/11 Elvira Beth Type 2 diabetes mellitus Hypoalbuminem ia 937765365 (SNOMED CT) 04/11 Active 04/11 Elvira Beth Hypoalbuminemia Medications Medication Instructions Start Date Stop Date Generic Name NDC Provider CEFTRIAXONE SODIUM 2 GM SOLR 2gm IV Q12hrs/ [facility] [phone] Plan to start at [facility] 04/18/18 to do 2xper day infusion. CEFTRIAXONE SODIUM 80082166715 Frida Morales PENICILLIN V POTASSIUM 250 MG TABS 1 by mouth twice a day for life PENICILLIN V POTASSIUM 64381801689 Gama Diaz MD PENICILLIN V POTASSIUM 250 MG/5ML SOLR 1 by mouth twice a day 30 days PENICILLIN V POTASSIUM 93591085422 Edie Hooks RN PENICILLIN V POTASSIUM 250 MG TABS 1 by mouth twice a day 30 days PENICILLIN V POTASSIUM 82818573346 Edie Hooks RN PENICILLIN V POTASSIUM 250 MG/5ML SOLR 1 by mouth twice a day 30 days PENICILLIN V POTASSIUM 64657078067 Gama Diaz MD PENICILLIN V POTASSIUM 250 MG TABS 1 by mouth twice a day 30 days PENICILLIN V POTASSIUM 04512611429 Gama Diaz MD CARDIZEM 120 MG TABS 1 tab once daily DILTIAZEM HCL 53290692076 Tahira Lucero VITAMIN D (CHOLECALCIFEROL ) 25 MCG (1000 UT) CAPS as instructed CHOLECALCIFEROL 84222147644 Tahira Lucero CEFTRIAXONE SODIUM 2 GM SOLR 2gm IV Q12hrs/ [facility] [phone] Plan to start at [facility] 04/18/18 to do 2xper day infusion. CEFTRIAXONE SODIUM 11025422311 Willa Lakhani RN PRAVASTATIN SODIUM 20 MG TABS Take one by mouth daily PRAVASTATIN SODIUM 90745952595 Garima Restrepo PLAVIX 75 MG TABS Take one by mouth daily CLOPIDOGREL BISULFATE 48508489863 Garima Restrepo NOVOLIN 70/30 (70-30) 100 UNIT/ML SUSP 20 units in AM, 10 units in PM INSULIN NPH ISOPHANE & REGULAR 92029059723 Garima Restrepo [facility] NICOTINE 21 MG/24HR PT24 1 patch daily NICOTINE 09422848035 Garima Floriandox LEVOTHYROXINE SODIUM 25 MCG TABS Take one by mouth daily LEVOTHYROXINE SODIUM 20926489624 Garima Floriandox HUMALOG 100 UNIT/ML SUBCUTANEOUS SOLUTION sliding scale INSULIN LISPRO 60948509129 Garima Floriandox GABAPENTIN 300 MG CAPS Take one by mouth daily GABAPENTIN 51892387864 Garima Floriandox FLORASTOR 250 MG CAPS Take one by mouth daily SACCHAROMYCES BOULARDII 77262478569 Garima Floriandox CELEXA 20 MG TABS Take one by mouth daily CITALOPRAM HYDROBROMIDE 41799442097 Garima Floriandox CARVEDILOL 3.125 MG TABS Take one by mouth daily CARVEDILOL 98356504424 Garima Lazarox ADULT ASPIRIN REGIMEN 81 MG ORAL TABLET DELAYED RELEASE Take one by mouth daily ASPIRIN 63488670504 Garima Lazarox AMBIEN 5 MG TABS Take/use as needed. ZOLPIDEM TARTRATE 65342035841 Garima Floriandox ALPRAZOLAM 0.5 MG TABS Take one by mouth 3 times daily, morning, afternoon and evening. ALPRAZOLAM 51761840505 Garima Floriandox CEFTRIAXONE SODIUM 2 GM SOLR 2gm IV Q24hrs/ [place] [phone] CEFTRIAXONE SODIUM 70483908761 Edie Hooks RN Medications Administered No information [...] [Ratio] by Automated count Lab Report: COMPREHENSIVE MA TABOLIC PANEL GFRC 47 mL/min/1 .73m2 >60 L Glomerular Filtration Rate Calculation Office Visit: Room 3 MEDS REVIEW Done Documenta tion of current medications (procedure) DIET MASK FORMER yes Dietary management education, guidance, and counseling (procedure) ORALTOBACUSE Never Tobacco smoking status SMOK STATUS Current every day smoker Tobacco smoking status Lab Report: COMPREHENSIVE MA TABOLIC PANEL, MISCELLANEOUS REFERRAL, SED R ... [...] reactive protein [Mass/volume] in Serum or Plasma [place] C-REACTIVE PROTEIN N GE use only - [...] Date CPT-Cooral Continue oral antibiotics 20 02/03/14 CPT-66051 CMP [id number] CBC with Differential 2019 CPT-24759 C- reactive protein CPT-sl STAT Labs CPT-08380 [facility] [id number] CBC with Differential 2018 CPT-49290 C- reactive protein CPT-Cooral Continue oral antibiotics 20 30/08/23 CPT-12935 CMP [id number] CBC with Differential 2018 CPT-08919 C- reactive protein CPT-Cooral Continue oral antibiotics 20 31/05/23 CPT-PICREM PICC Removal CPT-DC Discontinue IV antibiotics 2 CPT-jodi New Oral Antibiotic CPT-ca Continue IV antibiotics 2018 CPT-62804 CMP [id number] CBC with Differential 2018 CPT-16430 C- reactive protein Vital Signs Date Name [...]
--- OUTSIDE RECORDS SUMMARY | 2025-01-11 06:18 | XMS_ITS | Encounter Summary ---
Author Organization [employer] ([place], [place], [place], [place], [place]) Address [address] [place] [address] Care Team Providers Care Functional Architect Name Role Phone Unavailable Primary Care Provider Unavailabl e Encounter Details Date Type Department Care Team (Late st Contact Info) Description 03/28/2018 Transcribed Document [facility] [place] [address] ProviderZion MD [address] [place] [id number] Social History Tobacco Use Types Packs/Day Years Used Date Smoking Tobacco: Never Assessed Comments Unknown Sex and Gender Information Value Date Recorded Sex Assigned at Not on file Legal Sex Female 4:39 PM CDT Gender Identity Not on file Sexual Orientation Not on file documented as of this encounter Miscellaneous Notes * Cerner Conversion Note - Zion ProviderMD - 03/28/2018 7:46 AM DIRECTOR OF VOCATIONAL GUIDANCE Patient: ETHAN LOREDO Age: 57 years Sex: [...] Rocephin: 2 Gram, 100 mL/Hr, IV Piggyback, [id number] Tylenol: 650 mg, Oral, Q4H, PRN: Other [...] of motion, Normal strength. Integumentary: Warm, Dry, Cosmos. Neurologic: Alert, Oriented. Psychiatric: Cooperative, Appropriate mood [...] in 4-[address] Marcano at [facility]. 03/27/18 Options discussed with pt-Definitive Rx would require redo-MV sugery/device explant-reimplant. Surgical risk is high given severe carotid dx. Conservative initial Rx w/ repeat BROCK in 4-6 is reasonable option. CTS to see/EP following. Continue current CV meds. Add Plavix if no surgery. Electronically signed by Jorge Alberto, [facility] Conversion Rotary Drier Operator Cerner at 05/29/2022 8:35 PM CDT documented in this encounter Plan of Treatment Not on file documented as of this encounter Visit Diagnoses Not on filedocumented in this encounter
--- OUTSIDE RECORDS SUMMARY | 2025-01-11 06:18 | XMS_ITS | Encounter Summary ---
Author Organization [employer] ([place], [place], [place], [place], [place]) Address [address] [place] [address] Care Team Providers Care Surgical Elastic Knitter Name Role Phone Unavailable Primary Care Provider Unavailabl e Encounter Details Date Type Department Care Team (Late st Contact Info) Description 03/28/2018 Transcribed Document [facility] Family Medicine [address] [place] [address] ProviderZion MD [address] [place] [address] Social History Tobacco Use Types [...] - Historical ProviderMD - 03/28/2018 8:22 PM NEWSPAPER EDITOR MANAGING Care Management Assessment/Plan Entered On: 03/28/2018 20:23 EST Performed On: 03/28/2018 20:22 EST by Ninoska Cuellar Rn-Mender Knit Goods Ed Care Management Note Anticipated Discharge Date : 04/03/2018 14:00 EST Care Management Note : CM faxed orders to [facility] for IV abx f [phone] per orders. CM will need to call [facility] to notify them of final d/c plan per orders p [phone]. CM to follow for ongoing d/c planning/needs. Care Management Note Report : Ninoska Cuellar, Rn-Mender Knit Goods Ed - 03/28/18 18:12:15 CM recieved call from Gama at [facility] stating they can take pt at their facility, but not until Saturday, as they now have an agreement with [facility]. CM then spoke with Edie from [facility] and she again confirms they can accept pt at their facility tomorrow. CM updated pt and now pt is agreeable to go to [facility]. She also gave CM permission to speak with Jazmine joshi by phone p [phone]. CM spoke with Jazmine and she is agreeable with plan for [facility], stating its much closer to them, approx 30 min. Pt tells CM that her PCP, Dr. Davis had told her that she was not able to do IV abx from home. Discharge plan will be to go to [facility] in the am. CM updated Dr. Stauffer and he reports he will notify [facility] for tomorrow. CM will cont to follow for ongoing d/c planning/needs. Ninoska Cuellar, Rn-Mender Knit Goods Ed - 03/28/18 16:01:02 [facility] Clem states home cost for Rocephin is $3.70/wk. She states they may be able to contract with SNF to provide abx at pt's cost. She asked CM to have SNF call Paulo at their office to see about arranging. CM called MADELYN Corona with [facility] and she will call [facility] to see if this can be arranged. Updated BS RN, Ava. CM will cont to follow. Ninoska Cuellar, Rn-Mender Knit Goods Ed - 03/28/18 14:57:29 Called [facility] and spoke with Chiquita and updated her on IV abx needs. SHe will check cost and call CM back to see if bed offer is still on the table. CM left for [facility] with [facility] to update her, left requesting return phone call. CM updated pt and she appears discouraged that [facility] will not accept her as a pt. She tells CM that she is considering just going home. BLAKE also called Clem with [facility] to argueta abx at home. She states that [facility] may also be able to contract with facility to provide them with abx at their cost. CM faxed info on pt and abx to [facility] f [phone]. CM updated BS RNAva. CM will cont to follow. Ninoska Cuellar, Rn-Mender Knit Goods Ed - 03/28/18 14:21:[address] Jones this am and he tells CM that pt is ready for discharge from his standpoint and that ID has a plan in place for IV abx. PT does have a PICC in place. Recieved VM from [facility] with [facility] p [phone] stating they are interested in pt. CM went to BS to speak with pt to discuss bed offers. CM presented bed offers and pt tells CM that she really doesn't want to go to another facility. Pt tells CM that she only wants to go to [facility], as she has been there in the past. [facility] had not make bed offer at this time. CM called and spoke with Gama in admissions at [facility] and she tells CM that per her DON, they do not believe they can meet pt's needs at this time. CM pressed for more information and Gama told CM that she would have DON call her. -CM then spoke with MADELYN Corona at [facility] and she states that pt appears too sick at this time to come to their facility. CM provided her with verbal updates, as well as faxed updates f [phone]. She states they will reevaluate now, knowing [...] pt at this time due to the $8183-2089 IV rocephin cost through 05/04/[address] Diaz orders. Cm to follow for ongoing d/c planning/needs. Stew Porras, RN - 03/27/18 16:25:12 edie from [facility] ([phone] ex [phone]) called to make bed offer. bed offers will be presented to pt 03/28. dtr will provide transportationashely [phone] Stew Porras, RN - 03/27/18 15:00:29 spoke to ID who states pt maybe ready for dc as early as 03/28. id and attending PA are recommending SNF. spoke with pt and her dtr, jazmine and informed them of suggestion from drs to dc to snf for iv abx. pt and dtr in agreement and referrlas made via [facility] to the following [place].... [place]. Stew Porras, RN - 03/27/18 10:34:34 RRS-43 + for BROCK CT consulted and per ID, infection must clear prior to any ant surgical intervention Currnelty on rocephin iv w/bld cx pending Documentation Status Complete : Yes Ninoska Cuellar, Rn-Mender Knit Goods Ed - 03/28/2018 20:22 EST documented in this encounter Plan of Treatment Not on file documented as of this encounter Visit Diagnoses Not on filedocumented in this encounter
--- OUTSIDE RECORDS SUMMARY | 2025-01-11 06:18 | XMS_ITS | Encounter Summary ---
Author Organization [employer] ([place], [place], [place], [place], [place]) Address [address] [place] [address] Care Team Providers Care Auto Damage Estimator Name Role Phone Unavailable Primary Care Provider Unavailabl e Encounter Details Date Type Department Care Team (Late st Contact Info) Description 03/28/2018 Transcribed Document [facility] [place] [address] [place] [address] ProviderZion MD [address] [place], [place] [id number] Social History Tobacco Use Types Packs/Day Years Used Date Smoking Tobacco: Never Assessed Comments Unknown Sex and Gender Information Value Date Recorded Sex Assigned at Not on file Legal Sex Female 4:39 PM CDT Gender Identity Not on file Sexual Orientation Not on file documented as of this encounter Miscellaneous Notes * Cerner Conversion Note - Historical ProviderMD - 03/28/2018 5:00 AM ANIMAL RIDE MANAGER Chart Check - Review Order Profile [...]
--- OUTSIDE RECORDS SUMMARY | 2025-01-11 06:18 | XMS_ITS | Encounter Summary ---
Author Organization [employer] ([place], [place], [place], [place], [place]) Address [address] [place] [address] Care Team Providers Care Director Of Undergraduate Admissions Name Role Phone Unavailable Primary Care Provider Unavailabl e Encounter Details Date Type Department Care Team (Late st Contact Info) Description 03/28/2018 Transcribed Document [facility] [place] [address] [place] [address] ProviderZion MD [address] [place], [place] [id number] Social History Tobacco Use Types Packs/Day Years Used Date Smoking Tobacco: Never Assessed Comments Unknown Sex and Gender Information Value Date Recorded Sex Assigned at Not on file Legal Sex Female 4:39 PM CDT Gender Identity Not on file Sexual Orientation Not on file documented as of this encounter Miscellaneous Notes * Cerner Conversion Note - Historical ProviderMD - 03/28/2018 3:56 PM FRONT DESK MANAGER Care Management Assessment/Plan Entered On: 03/28/2018 16:01 EST Performed On: 03/28/2018 15:56 EST by Ninoska Cuellar Rn-Nursing Unit Coordinator Ed Care Management Note Anticipated Discharge [...] Care Management Note Report : Ninoska Cuellar Rn-Nursing Unit Coordinator Ed - 03/28/18 14:57:29 Called [facility] and spoke with Chiquita and updated her on IV abx needs. SHe will check cost and call CM back to see if bed offer is still on the table. CM left for [facility] with [facility] to update her, left requesting return phone call. CM updated pt and she appears discouraged that [facility] will not accept her as a pt. She tells CM that she is considering just going home. CM also called Clem with [facility] to argueta abx at home. She states that [facility] may also be able to contract with facility to provide them with abx at their cost. CM faxed info on pt and abx to [facility] f [phone]. CM updated BS RN, Ava. CM will cont to follow. Ninoska Cuellar, Rn-Nursing Unit Coordinator Ed - 03/28/18 14:21:[address] Jones this and he tells CM that pt is ready for discharge from his standpoint and that ID has a plan in place for IV abx. PT does have a PICC in place. Recieved VM from [facility] with [facility] p [phone] stating they are interested in pt. CM went to BS to speak with pt to discuss bed offers. CM presented bed offers and pt tells CM that she really doesn't want to go to another facility. Pt tells CM that she only wants to go to [facility], as she has been there in the past. [facility] had not make bed offer at this time. BLAKE called and spoke with Gama in admissions at [facility] and she tells CM that per her DON, they do not believe they can meet pt's needs at this time. BLAKE pressed for more information and Gama told CM that she would have DON call her. -BLAKE then spoke with MADELYN Corona at [facility] and she states that pt appears too sick at this time to come to their facility. BLAKE provided her with verbal updates, as well as faxed updates f [phone]. She states they will reevaluate now, knowing abx needs. She asked for bld cx results and CM called microbiology dept and was told that bld cx x2 from 03/23 were still negative, but would not be complete until this evening. CM informed facility of this information. CM then recieved callback from [place] with admissions who states after rereview, they will not be able to take pt at this time due to the $6413-0590 IV rocephin cost through 05/04/[address] Diaz orders. Cm to follow for ongoing d/c planning/needs. Stew Porras, RN - 03/27/18 16:25:12 blayne from [facility] ([phone] ex [phone]) called to make bed offer. bed offers will be presented to pt 03/28. d[place] [phone] Stew Porras, REGULO - 03/27/18 15:00:29 spoke to ID who states pt maybe ready for dc as early as 03/28. id and attending PA are recommending SNF. spoke with pt and her dtr, jazmine and informed them of suggestion from drs to dc to snf for iv abx. pt and dtr in agreement and referrlas made via [facility] to the following counties.... [place]. Stew Porras, REGULO - 03/27/18 10:34:34 RRS-43 + for BROCK CT consulted and per ID, infection must clear prior to any ant surgical intervention Currnelty on rocephin iv w/bld cx pending Documentation Status Complete : Yes Ninoska Cuellar, Rn-Nursing Unit Coordinator Ed - 03/28/2018 15:56 EST documented in this encounter Plan of Treatment Not on file documented as of this encounter Visit Diagnoses Not on filedocumented in this encounter
--- OUTSIDE RECORDS SUMMARY | 2025-01-11 06:18 | XMS_ITS | Encounter Summary ---
Author Organization [employer] ([place], [place], [place], [place], [place]) Address [address] [place] [address] Care Team Providers Care Almond Roaster Name Role Phone Unavailable Primary Care Provider Unavailabl e Encounter Details Date Type Department Care Team (Late st Contact Info) Description 03/29/2018 Transcribed Document [facility] [place] [address] [place] [address] ProviderZion MD [address] [place], [place] [id number] Social History Tobacco Use Types Packs/Day Years Used Date Smoking Tobacco: Never Assessed Comments Unknown Sex and Gender Information Value Date Recorded Sex Assigned at Not on file Legal Sex Female 4:39 PM CDT Gender Identity Not on file Sexual Orientation Not on file documented as of this encounter Miscellaneous Notes * Cerner Conversion Note - Historical ProviderMD - 03/29/2018 2:00 AM WAREHOUSEMAN Tandem Mill Roller Details Entered On: 03/29/2018 6:43 EST Performed [...] - 03/29/2018 6:43 EST Electronically signed by Vinayak Azul Conversion Supervisor Opening And Picking Cerner at 05/29/2022 8:41 PM CDT documented in this encounter Plan of Treatment Not on file documented as of this encounter Visit Diagnoses Not on filedocumented in this encounter
--- OUTSIDE RECORDS SUMMARY | 2025-01-11 06:18 | XMS_ITS | Encounter Summary ---
Author Organization [employer] ([place], [place], [place], [place], [place]) Address [address] [place] [address] Care Team Providers Care Talkback Host Name Role Phone Unavailable Primary Care Provider Unavailabl e Encounter Details Date Type Department Care Team (Late st Contact Info) Description 03/29/2018 Transcribed Document [facility] [place] [address] [place] [address] ProviderZion MD [address] [place], [place] [id number] Social History Tobacco Use Types Packs/Day Years Used Date Smoking Tobacco: Never Assessed Comments Unknown Sex and Gender Information Value Date Recorded Sex Assigned at Not on file Legal Sex Female 4:39 PM CDT Gender Identity Not on file Sexual Orientation Not on file documented as of this encounter Miscellaneous Notes * [employer]ner Conversion Note - Historical ProviderMD - 03/29/2018 1:22 PM ENGINE LATHE OPERATOR Discharge Instructions Entered On: 03/29/2018 13:23 EST Performed On: 03/29/2018 13:22 EST by Odalys Bush Rn-Tracing Lathe Set Up Operator DC Instructions HWD Discharge Summary Sent to : Joshua [phone] Special Instructions : Report: Joshua [phone] Odalys Bush Rn-Tracing Lathe Set Up Operator - 03/29/2018 13:22 EST Electronically signed by Jorge Alberto [facility] Conversion Gravel Screener Cerner at 05/29/2022 8:39 PM CDT documented in this encounter Plan of Treatment Not on file documented as of this encounter Visit Diagnoses Not on filedocumented in this encounter
--- OUTSIDE RECORDS SUMMARY | 2025-01-11 06:18 | XMS_ITS | Encounter Summary ---
Author Organization [employer] ([place], [place], [place], [place], [place]) Address [address] [place] [address] Care Team Providers Care Foreign Languages Department Chair Name Role Phone Unavailable Primary Care Provider Unavailabl e Encounter Details Date Type Department Care Team (Late st Contact Info) Description 03/28/2018 Transcribed Document [facility] [place] Family Medicine [address] [place] [address] ProviderZion MD [address] [place] [address] Social History Tobacco Use [...] - Historical ProviderMD - 03/28/2018 6:07 PM DRAFTER REFRIGERATION Care Management Assessment/Plan Entered On: 03/28/2018 18:12 EST Performed On: 03/28/2018 18:07 EST by Ninoska Cuellar Rn-Building Maintenance Technician Ed Care Management Note Anticipated Discharge Date : 04/03/2018 14:00 EST Care Management Note : CM recieved call from Gama at [facility] stating they can take pt at their facility, but not until Saturday, as they now have an agreement with [employer]. CM then spoke with Edie from [facility] and she again confirms they can accept pt at their facility tomorrow. CM updated pt and now pt is agreeable to go to [facility]. She also gave CM permission to speak with Jazmine joshi by phone p [phone]. CM spoke with Jazmine and she is agreeable with plan for [facility], stating its much closer to them, approx 30 min. Pt tells CM that her PCP, Dr. Davis had told her that she was not able to do IV abx from home. Discharge plan will be to go to [facility] in the am. BLAKE updated Dr. Stauffer and he reports he will notify [facility] for tomorrow. CM will cont to follow for ongoing d/c planning/needs. Care Management Note Report : Ninoska Cuellar, Rn-Building Maintenance Technician Ed - 03/28/18 16:01:02 [facility] Mariahhoward states home cost for Luis Daniel is $3.70/wk. She states they may be able to contract with SNF to provide abx at pt's cost. She asked CM to have SNF call Paulo at their office to see about arranging. CM called MADELYN Corona with [facility] and [facility] will [facility] to see if this can be arranged. Updated BS RNAva. CM will cont to follow. Ninoska Cuellar, Rn-Building Maintenance Technician Ed - 03/28/18 14:57:29 Called [facility] and spoke with Chiquita and updated her on IV abx needs. SHe will check cost and call CM back to see if bed offer is still on the table. CM left for [facility] with [facility] to update her, left requesting return phone call. CM updated pt and she appears discouraged that [facility] will not accept her as a pt. She tells CM that she is considering just going home. BLAKE also called Clem with [facility] to argueta abx at home. She states that [facility] may also be able to contract with facility to provide them with abx at their cost. CM faxed info on pt and abx to [facility] f [phone]. CM updated BS RNAva. CM will cont to follow. Ninoska Cuellar, Rn-Building Maintenance Technician Ed - 03/28/18 14:21:[address] Jones this and he tells CM that pt is ready for discharge from his standpoint and that ID has a plan in place for IV abx. PT does have a PICC in place. Recieved VM from [facility] with [facility] p [phone] stating they are interested in pt. CM went to BS to speak with pt to discuss bed offers. CM presented bed offers and pt tells CM that she really doesn't want to go to another facility. Pt tells CM that she only wants to go to [facility], as she has been there in the past. [facility] had not make bed offer at this time. CM called and spoke with Gama in admissions at [facility] and she tells CM that per her DON, they do not believe they can meet pt's needs at this time. CM pressed for more information and Gama told CM that she would have DON call her. -CM then spoke with MADELYN Corona at [facility] and she states that pt appears too sick at this time to come to their facility. CM provided her with verbal updates, as well as faxed updates f [phone]. She states they will reevaluate now, knowing [...] pt at this time due to the $8337-9638 IV rocephin cost through 05/04/[address] Diaz orders. Cm to follow for ongoing d/c planning/needs. Stew Porras RN - 03/27/18 16:25:12 edie from [facility] ( ex 108) called to make bed offer. bed offers will be presented to pt 03/28. dtr [place] [phone] Stew Porras RN - 03/27/18 15:00:29 spoke to ID who states pt maybe ready for dc as early as 03/28. id and attending PA are recommending SNF. spoke with pt and her dtr, jazmine and informed them of suggestion from drs to dc to snf for iv abx. pt and dtr in agreement and referrlas made via [facility] to the following counties.... [place]. Stew Porras RN - 03/27/18 10:34:34 RRS-43 + for BROCK CT consulted and per ID, infection must clear prior to any ant surgical intervention Currnelty on rocephin iv w/bld cx pending Documentation Status Complete : Yes Ninoska Cuellar, Rn-Building Maintenance Technician Ed - 03/28/2018 18:07 EST Electronically signed by Jorge Alberto, [facility] Conversion Oil And Gas Recruiter Cerner at 05/29/2022 8:35 PM CDT documented in this encounter Plan of Treatment Not on file documented as of this encounter Visit Diagnoses Not on filedocumented in this encounter
--- OUTSIDE RECORDS SUMMARY | 2025-01-11 06:18 | XMS_ITS | Encounter Summary ---
Author Organization [employer] ([place], [place], [place], [place], [place]) Address [address] [place] [address] Care Team Providers Care Laundry Washer Name Role Phone Unavailable Primary Care Provider Unavailabl e Encounter Details Date Type Department Care Team (Late st Contact Info) Description 03/29/2018 Transcribed Document [facility] [place] [address] [place] [address] ProviderZion MD [address] [place] [address] Social History Tobacco Use Types [...] - Historical ProviderMD - 03/29/2018 5:00 AM PARENT EDUCATOR Chart Check - Review Order Profile Entered On: 03/29/2018 6:43 EST Performed On: 03/29/2018 5:00 EST by Tiffany Guadalupe RN Chart Check Chart Reviewed Date and Time : 03/29/2018 6:43 EST Powerplans Initiated/Discontinued as Appropriate : Yes All Active Orders Reviewed : Yes Tiffany Guadalupe RN - 03/29/2018 6:43 EST Electronically signed by Jorge Alberto [facility] Conversion Control System Manager Cerner at 05/29/2022 8:36 PM CDT documented in this encounter Plan of Treatment Not on file documented as of this encounter Visit Diagnoses Not on filedocumented in this encounter
--- OUTSIDE RECORDS SUMMARY | 2025-01-11 06:18 | XMS_ITS | Encounter Summary ---
Author Organization [employer] ([place], [place], [place], [place], [place]) Address [address] [place] [address] Care Team Providers Care Parts Cataloger Name Role Phone Unavailable Primary Care Provider Unavailabl e Encounter Details Date Type Department Care Team (Late st Contact Info) Description 03/28/2018 Transcribed Document [facility] [place] [address] [place] [address] ProviderZion MD [address] [place] [address] Social History Tobacco Use Types [...] - Historical ProviderMD - 03/28/2018 5:00 PM COMPUTATIONAL LINGUIST Chart Check - Review Order Profile Entered On: 03/28/2018 16:43 EST Performed On: 03/28/2018 17:00 EST by Ava Schmitt RN Chart Check Chart Reviewed Date and Time : 03/28/2018 16:43 EST Ava Schmitt RN - 03/28/2018 16:43 EST Electronically signed by Jorge Alberto [facility] Conversion Head Of Music Cerner at 05/29/2022 8:40 PM CDT documented in this encounter Plan of Treatment Not on file documented as of this encounter Visit Diagnoses Not on filedocumented in this encounter
--- OUTSIDE RECORDS SUMMARY | 2025-01-11 06:18 | XMS_ITS | Encounter Summary ---
Author Organization [employer] ([place], [place], [place], [place], [place]) Address [address] [place] [address] Care Team Providers Care Machine Shop Worker Name Role Phone Unavailable Primary Care Provider Unavailabl e Encounter Details Date Type Department Care Team (Late st Contact Info) Description 03/28/2018 Transcribed Document [facility] [place] [facility] [place] [address] ProviderZion MD [address] [place] [id number] Social History Tobacco Use Types Packs/Day Years Used Date Smoking Tobacco: Never Assessed Comments Unknown Sex and Gender Information Value Date Recorded Sex Assigned at Not on file Legal Sex Female 4:39 PM CDT Gender Identity Not on file Sexual Orientation Not on file documented as of this encounter Miscellaneous Notes * Cerner Conversion Note - Historical ProviderMD - 03/28/2018 11:06 AM TRIBAL JUDGE Patient: ETHAN LROEDO Age: 57 Years Sex: Female : 1960 [...]
[2025-01-11 06:19] LABS: Microscopic, Urine URINE MICROSCOPIC (MICROSCOPIC)
--- OUTSIDE RECORDS SUMMARY | 2025-01-11 06:19 | XMS_ITS | Encounter Summary ---
Author Organization [employer] ([place], [place], [place], [place], [place]) Address [address] [place] [address] Care Team Providers Care Newsroom Intern Name Role Phone Unavailable Primary Care Provider Unavailabl e Encounter Details Date Type Department Care Team (Late st Contact Info) Description 03/26/2018 Transcribed Document [facility] [place] [address] [place] [address] ProviderZion MD [address] [place], [place] [id number] Social History Tobacco Use Types Packs/Day Years Used Date Smoking Tobacco: Never Assessed Comments Unknown Sex and Gender Information Value Date Recorded Sex Assigned at Not on file Legal Sex Female 4:39 PM CDT Gender Identity Not on file Sexual Orientation Not on file documented as of this encounter Miscellaneous Notes * Cerner Conversion Note - Historical ProviderMD - 03/26/2018 5:00 AM FLORAL ARTIST Chart Check - Review Order Profile Entered [...]
--- OUTSIDE RECORDS SUMMARY | 2025-01-11 06:19 | XMS_ITS | Clinical Summary ---
[facility] Address [address] [place] [address] Care Team Providers Care Supply Chain Planner Name Role Phone Cosme Davis MD Primary [...] Insurance MEDICARE A & B Care Teams Supply Chain Planner Relationship Specialty Start Date End Date Cosme Davis MD [address] [facility] [address] ATTN: [place] [address] PCP - General Emergency Medicine 06/04/18
--- OUTSIDE RECORDS SUMMARY | 2025-01-11 06:19 | XMS_ITS | Referral Summary ---
Author Organization [employer] ([place], [place], [place], [place], [place]) Address [address] [place] [address] Care Team Providers Care Supervisor Modern Languages Name Role Phone Unavailable Primary Care Provider [...]
--- OUTSIDE RECORDS SUMMARY | 2025-01-11 06:19 | XMS_ITS | Data Portability ---
Author Organization [facility] Address [address] [place] [address] Assessment Encounter Date Assessment Date Assessment LastModified [...] recorded. Lab drug screen, urine 2024 025 [facility], [address], [place], [address], 5 18:12:43 TSH + free T4, serum 2024 025 [facility], [address], [place], [place], [address], 5 14:15:06 cobalamin and folate panel, serum 2024 025 [facility], [address], [place], [place], [address], 5 14:15:09 CBC w/ auto diff 2024 025 [facility], [address], [place], [place], [address], 5 09:56:34 CMP, serum or plasma 2024 025 [facility], [address], [place], [place], [address], 5 14:15:07 HbA1c (hemoglobin A1c), blood 2024 025 [facility], [address], [place], [place], [address], 5 14:15:09 lipid panel, serum 2024 025 [facility], [address], [place], [place], [address], 5 14:15:08 TSH + free T4, serum 2024 025 [facility], [address], [place], [place], [address], 5 17:07:34 CMP, serum or plasma 2024 025 [facility], [address], [place], [place], [address], 5 17:07:35 CBC w/ auto diff 2024 025 [facility], [address], [place], [place], [address], 5 17:07:34 BNP (B-type natriuretic peptide), serum or plasma 2024 025 [facility], [address], [place], [place], [address], 5 17:07:36 Referral wound care referral - nurse to start wound care on stage 1 to buttocks-pt is already in care with home health 2024 025 [facility], [address] [place] [address], [id number], 08:26:07 Procedures None recorded. Surgeries None recorded. Imaging XR, chest, 2 view 2024 025 [facility] (X-Ray), [address], [place], [address], 5 14:20:52 Medication Orders Miralax 17 gram/dose oral powder 2024 025 [facility], [address] [place] [address] 27 [address], [place], [id number], 5 17:15:19 alprazolam 0.5 mg tablet 2024 025 [facility], [address] [place] [address] S, [place], [id number], 5 12:00:52 fluconazole 100 mg tablet 2024 025 [facility], [address] [place] [address], [address], 5 05:01:51 nystatin 100,000 unit/gram topical powder 2024 025 [facility], [address] [place] [address], [address], 5 14:43:23 alprazolam 0.5 mg tablet 2024 025 [facility], [address] [place] [address] 27 S, [place], [id number], 5 14:43:24 penicillin V potassium 250 mg tablet 2024 025 [facility], [address] [place] [address] 27 S, [place], [phone], 14:14:33 Patient TargetsNo targets recorded. Patient Instructions Encounter Date Encounter Id Patient Instructions Last Modified By Organization Details Last Modified Time 08/11/2024 [id number] body mass index: care instructions rebel Not [...] Order ing Provi oscar: Elisha Beckham n SUPERVISOR HEAT TREATING Not Available [address] , [place], [address], 03/27/2024 17:28:40 03/27/19 25 03/27/2024 CBC W/AUT O DIFFE RENTI AL white blood cell 8.3 10e3/ uL 4.5-13 .0 normal Not Available [address] [place], [place], [address], 03/27/2024 17:28:40 03/27/19 25 03/27/2024 CBC W/AUT O DIFFE RENTI AL red blood cell 3.06 10e6/ uL 3.80-5 .10 low Not Available [place] [address], [place], [address], 03/27/2024 17:28:40 03/27/19 25 03/27/2024 CBC W/AUT O DIFFE RENTI AL hemoglobin 9.0 g/dL 11.5-1 5.3 low Not Available [address] , [place], [address], 03/27/2024 17:28:40 03/27/19 25 03/27/2024 CBC W/AUT O DIFFE RENTI AL hematocrit 29.5 % 34.0-4 6.0 low Not Available [address] [place], [place], [address], 03/27/2024 17:28:40 03/27/19 25 03/27/2024 CBC W/AUT O DIFFE RENTI AL mean cell volume 96 fL 78.0-9 8.0 normal Not Available [address] [place], [place], [address], 03/27/2024 17:28:40 03/27/19 25 03/27/2024 CBC W/AUT O DIFFE RENTI AL mean cell HGB 29.4 pg 25.0-3 5.0 normal Not Available [address] , [place], [address], 03/27/2024 17:28:40 03/27/19 25 03/27/2024 CBC W/AUT O DIFFE RENTI AL mean cell HGB concentratio n 30.5 g/dL 31.0-3 6.0 low Not Available [address] [place], [place], [address], 03/27/2024 17:28:40 03/27/19 25 03/27/2024 CBC W/AUT O DIFFE RENTI AL red cell distribution width 18.6 % 11.0-1 5.0 high Not Available [address] [place], [place], [address], 03/27/2024 17:28:40 03/27/19 25 03/27/2024 CBC W/AUT O DIFFE RENTI AL platelet count 316 10e3/ uL 150-40 0 normal Not Available [address] [place], [place], [address], 03/27/2024 17:28:40 03/27/19 25 03/27/2024 CBC W/AUT O DIFFE RENTI AL immature granulocyte % 2 0-1 high Not Available [address] , [place], [address], 03/27/2024 17:28:40 03/27/19 25 03/27/2024 CBC W/AUT O DIFFE RENTI AL neutrophil % 71 % 35-75 normal Not Available [address] , [place], [address], 03/27/2024 17:28:40 03/27/19 25 03/27/2024 CBC W/AUT O DIFFE RENTI AL lymphocyte % 19 % 10-50 normal Not Available [address] , [place], [address], 03/27/2024 17:28:40 03/27/19 25 03/27/2024 CBC W/AUT O DIFFE RENTI AL monocyte % 5 % 0-15 normal Not Available [address] , [place], [address], 03/27/2024 17:28:40 03/27/19 25 03/27/2024 CBC W/AUT O DIFFE RENTI AL eosinophil % 2 % 0-5 normal Not Available [address] , [place], [address], 03/27/2024 17:28:40 03/27/19 25 03/27/2024 CBC W/AUT O DIFFE RENTI AL basophil % 1 % 0-5 normal Not Available [address] [place], [place], [address], 03/27/2024 17:28:40 03/27/19 25 03/27/2024 CBC W/AUT O DIFFE RENTI AL immature granulocyte # 0.13 x1000 /uL 0-0.05 high Not Available [address] [place], [place], [address], 03/27/2024 17:28:40 03/27/19 25 03/27/2024 CBC W/AUT O DIFFE RENTI AL neutrophil # 5.92 x1000 /uL 1.50-8 .00 normal Not Available [address] [place], [place], [address], 03/27/2024 17:28:40 03/27/19 25 03/27/2024 CBC W/AUT O DIFFE RENTI AL lymphocyte # 1.55 x1000 /uL 1.20-5 .20 normal Not Available [address] [place], [place], [address], 03/27/2024 17:28:40 03/27/19 25 03/27/2024 CBC W/AUT O DIFFE RENTI AL monocyte # 0.45 x1000 /uL 0.40-0 .90 normal Not Available [address] [place], [place], [address], 03/27/2024 17:28:40 03/27/19 25 03/27/2024 CBC W/AUT O DIFFE RENTI AL eosinophil # 0.18 x1000 /uL 0.00-0 .50 normal Not Available [address] [place], [place], [address], 03/27/2024 17:28:40 03/27/19 25 03/27/2024 CBC W/AUT O DIFFE RENTI AL basophil # 0.07 x1000 /uL 0.00-0 .30 normal Not Available [address] [place], [place], [address], 03/27/2024 17:28:40 03/27/19 25 03/27/2024 CBC W/AUT O DIFFE RENTI AL NRBC automated 0.0 /100_ WBC Not Available [address] [place], [place], [address], 03/27/2024 17:28:40 03/27/19 25 03/27/2024 CBC W/AUT O DIFFE KEELEY AL performing lab see note - [address] [facility] [address] Not Available [address] , [place], [address], 03/27/2024 17:28:40 03/27/19 25 03/27/2024 COMP METAB OLIC PANEL note See Note Order ing Provi oscar: Eugon da Fryma n SUPERVISOR HEAT TREATING Not Available [address] , [place], [address], 03/27/2024 17:32:51 03/27/19 25 03/27/2024 COMP METAB OLIC PANEL sodium 137 mmol/ L 136-14 5 normal Not Available [address] , [place], [address], 03/27/2024 17:32:51 03/27/19 25 03/27/2024 COMP METAB OLIC PANEL potassium 5.0 mmol/ L 3.5-5. 1 normal Not Available [address] , [place], [address], 03/27/2024 17:32:51 03/27/19 25 03/27/2024 COMP METAB OLIC PANEL chloride 103 mmol/ L 98-107 normal Not Available [address] , [place], [address], 03/27/2024 17:32:51 03/27/19 25 03/27/2024 COMP METAB OLIC PANEL carbon dioxide 24 mmol/ L 24-33 normal Not Available [address] [place], [address], 03/27/2024 17:32:51 03/27/19 25 03/27/2024 COMP METAB OLIC PANEL anion gap 15.0 mmol/ L 10-20 normal Not Available [address] , [place], [address], 03/27/2024 17:32:51 03/27/19 25 03/27/2024 COMP METAB OLIC PANEL glucose 148 mg/dL 70-99 high Not Available [address] [place], [address], 03/27/2024 17:32:51 03/27/19 25 03/27/2024 COMP METAB OLIC PANEL blood urea nitrogen 61 mg/dL 7-18 high Not Available [address] [place], [address], 03/27/2024 17:32:51 03/27/19 25 03/27/2024 COMP METAB OLIC PANEL creatinine 2.72 mg/dL 0.55-1 .02 high Not Available [address] , [place], [address], 03/27/2024 17:32:51 03/27/19 25 03/27/2024 COMP METAB [...] care of your patie nt. Not Available [address] , [place], [address], 03/27/2024 17:32:51 03/27/19 25 03/27/2024 COMP METAB OLIC PANEL BUN/creatini ne ratio 22 12-20 high Not Available [address] [place], [place], [address], 03/27/2024 17:32:51 03/27/19 25 03/27/2024 COMP METAB OLIC PANEL total protein 6.8 g/dL 6.4-8. 2 normal Not Available [address] [place], [place], [address], 03/27/2024 17:32:51 03/27/19 25 03/27/2024 COMP METAB OLIC PANEL albumin 3.3 g/dL 3.4-5. 0 low Not Available [address] [place], [address], 03/27/2024 17:32:51 03/27/19 25 03/27/2024 COMP METAB OLIC PANEL globulin 3.5 g/dL 1.5-4. 0 normal Not Available [address] [place], [address], 03/27/2024 17:32:51 03/27/19 25 03/27/2024 COMP METAB OLIC PANEL albumin/glob ulin ratio 0.9 0.5-2. 0 normal Not Available [address] [place], [address], 03/27/2024 17:32:51 03/27/19 25 03/27/2024 COMP METAB OLIC PANEL calcium 9.2 mg/dL 8.5-10 .1 normal Not Available [address] [place], [address], 03/27/2024 17:32:51 03/27/19 25 03/27/2024 COMP METAB OLIC PANEL osmolality serum calculated 293 mOsm/ kg 272-28 8 high Not Available [address] [place], [address], 03/27/2024 17:32:51 03/27/19 25 03/27/2024 COMP METAB OLIC PANEL bilirubin total 0.4 mg/dL 0.2-1. 0 normal Use of this assay is not recom godwin d for patie nts under going treat ment with Eltro mbopa g due to the poten tial for false ly eleva anthony resul ts. Not Available [address] [place], [address], 03/27/2024 17:32:51 03/27/19 25 03/27/2024 COMP METAB OLIC PANEL SGOT/AST 14 U/L 15-37 low Not Available [address] [place], [address], 03/27/2024 17:32:51 03/27/19 25 03/27/2024 COMP METAB OLIC PANEL SGPT/ALT 15 U/L 14-59 normal Not Available [address], [place], [address], 03/27/2024 17:32:51 03/27/19 25 03/27/2024 COMP METAB OLIC PANEL alkaline phosphatase total 93 U/L 46-116 normal Not Available [address] , [place], [address], 03/27/2024 17:32:51 03/27/19 25 03/27/2024 COMP METAB OLIC PANEL performing lab see note [facility] [address] [facility] [address] Not Available [address] , [place], [address], 03/27/2024 17:32:51 03/27/19 25 03/27/2024 MAGNE SIUM note See Note Order ing Provi oscar: Elisha Santosa n SUPERVISOR HEAT TREATING Not Available [address] [place], [place], [address], 03/27/2024 17:32:52 03/27/19 25 03/27/2024 MAGNE SIUM magnesium 2.3 mg/dL 1.8-2. 4 normal Not Available [address] , [place], [address], 03/27/2024 17:32:52 03/27/19 25 03/27/2024 MAGNE SIUM performing lab see note ML - [facility] [address] [facility] [address] Not Available [address] , [place], [address], 03/27/2024 17:32:52 04/16/19 25 04/15/2024 TSH+F REE T4 TSH 12.100 uIU/m L 0.450- 4.500 above high normal Not Available [facility] ([facility]) [address] [facility], [place], [address], 04/15/2024 17:07:34 04/16/19 25 04/15/2024 TSH+F REE T4 T4,free(dire ct) 1.14 NG/dL 0.82-1 .77 normal Not Available [facility] ([facility]) [address] [place], [address], 04/15/2024 17:07:34 04/16/19 25 04/15/2024 CBC WITH DIFFE RENTI AL/PL ATELE T WBC 7.4 x10e3 /uL 3.4-10 .8 normal Not Available [facility] ([facility]) [address] [place], [address], 04/15/2024 17:07:34 04/16/19 25 04/15/2024 CBC WITH DIFFE RENTI AL/PL ATELE T RBC 3.02 x10e6 /uL 3.77-5 .28 below low normal Not Available [facility] ([facility]) [address] [place], [address], 04/15/2024 17:07:34 04/16/19 25 04/15/2024 CBC WITH DIFFE RENTI AL/PL ATELE T hemoglobin 8.6 g/dL 11.1-1 5.9 below low normal Not Available [facility] ([facility]) [address] [place], [address], 04/15/2024 17:07:34 04/16/19 25 04/15/2024 CBC WITH DIFFE RENTI AL/PL ATELE T hematocrit 28.6 % 34.0-4 6.6 below low normal Not Available [facility] ([facility]) [address] [place], [address], 04/15/2024 17:07:34 04/16/19 25 04/15/2024 CBC WITH DIFFE RENTI AL/PL ATELE T MCV 95 fL 79-97 normal Not Available [facility] ([facility]) [address] [facility], [place], [address], 04/15/2024 17:07:34 04/16/19 25 04/15/2024 CBC WITH DIFFE RENTI AL/PL ATELE T MCH 28.5 pg 26.6-3 3.0 normal Not Available [facility] ([facility]) [address] [facility], [place], [address], 04/15/2024 17:07:34 04/16/19 25 04/15/2024 CBC WITH DIFFE RENTI AL/PL ATELE T MCHC 30.1 g/dL 31.5-3 5.7 below low normal Not Available [facility] ([facility]) [address] [facility], [place], [address], 04/15/2024 17:07:34 04/16/19 25 04/15/2024 CBC WITH DIFFE RENTI AL/PL ATELE T RDW 16.1 % 11.7-1 5.4 above high normal Not Available [facility] ([facility]) [address] [facility], [place], [address], 04/15/2024 17:07:34 04/16/19 25 04/15/2024 CBC WITH DIFFE RENTI AL/PL ATELE T platelets 248 x10e3 /uL 150-45 0 normal Not Available [facility] ([facility]) [address] [place], [address], 04/15/2024 17:07:34 04/16/19 25 04/15/2024 CBC WITH DIFFE RENTI AL/PL ATELE T neutrophils 72 % not estab. normal Not Available [facility] ([facility]) [address] [place], [address], 04/15/2024 17:07:34 04/16/19 25 04/15/2024 CBC WITH DIFFE RENTI AL/PL ATELE T lymphs 16 % not estab. normal Not Available [facility] ([facility]) [address] [place], [address], 04/15/2024 17:07:34 04/16/19 25 04/15/2024 CBC WITH DIFFE RENTI AL/PL ATELE T monocytes 7 % not estab. normal Not Available [facility] ([facility]) [address] [facility], [place], [address], 04/15/2024 17:07:34 04/16/19 25 04/15/2024 CBC WITH DIFFE RENTI AL/PL ATELE T eos 4 % not estab. normal Not Available [facility] ([facility]) [address] [facility], [place], [address], 04/15/2024 17:07:34 04/16/19 25 04/15/2024 CBC WITH DIFFE RENTI AL/PL ATELE T basos 1 % not estab. normal Not Available [facility] ([facility]) [address] [facility], [place], [address], 04/15/2024 17:07:34 04/16/19 25 04/15/2024 CBC WITH DIFFE RENTI AL/PL ATELE T immature cells DISC PAD PLATE FILLER Not Available [facility] ([facility]) [address] [place], [address], 04/15/2024 17:07:34 04/16/19 25 04/15/2024 CBC WITH DIFFE RENTI AL/PL ATELE T neutrophils (absolute) 5.4 x10e3 /uL 1.4-7. 0 normal Not Available [facility] ([facility]) [address] [place], [address], 04/15/2024 17:07:34 04/16/19 25 04/15/2024 CBC WITH DIFFE RENTI AL/PL ATELE T lymphs (absolute) 1.2 x10e3 /uL 0.7-3. 1 normal Not Available [facility] ([facility]) [address] [place], [address], 04/15/2024 17:07:34 04/16/19 25 04/15/2024 CBC WITH DIFFE RENTI AL/PL ATELE T monocytes(ab solute) 0.5 x10e3 /uL 0.1-0. 9 normal Not Available [facility] ([facility]) [address] [facility], [place], [address], 04/15/2024 17:07:34 04/16/19 25 04/15/2024 CBC WITH DIFFE RENTI AL/PL ATELE T eos (absolute) 0.3 x10e3 /uL 0.0-0. 4 normal Not Available [facility] ([facility]) [address] [facility], [place], [address], 04/15/2024 17:07:34 04/16/19 25 04/15/2024 CBC WITH DIFFE RENTI AL/PL ATELE T baso (absolute) 0.1 x10e3 /uL 0.0-0. 2 normal Not Available [facility] ([facility]) [address] [facility], [place], [address], 04/15/2024 17:07:34 04/16/19 25 04/15/2024 CBC WITH DIFFE RENTI AL/PL ATELE T immature granulocytes 0 % not estab. Not Available [facility] ([facility]) [address] [place], [address], 04/15/2024 17:07:34 04/16/19 25 04/15/2024 CBC WITH DIFFE RENTI AL/PL ATELE T immature grans (abs) 0.0 x10e3 /uL 0.0-0. 1 Not Available [facility] ([facility]) [address] [facility], [place], [address], 04/15/2024 17:07:34 04/16/19 25 04/15/2024 CBC WITH DIFFE RENTI AL/PL ATELE T NRBC DISC PAD PLATE FILLER Not Available [facility] ([facility]) [address] [facility], [place], [address], 04/15/2024 17:07:34 04/16/19 25 04/15/2024 CBC WITH DIFFE KEELEY AL/PARTHA Gomez hematology comments: DISC PAD PLATE FILLER Not Available [facility] ([facility]) [address] [facility], [place], [address], 04/15/2024 17:07:34 04/16/19 25 04/15/2024 COMP. METAB OLIC PANEL (14) glucose 111 mg/dL 70-99 above high normal Not Available [facility] ([facility]) [address] [facility], [address], 04/15/2024 17:07:35 04/16/19 25 04/15/2024 COMP. METAB OLIC PANEL (14) BUN 41 mg/dL 8-27 above high normal Not Available [facility] ([facility]) [address] [facility], [place], [address], 04/15/2024 17:07:35 04/16/19 25 04/15/2024 COMP. METAB OLIC PANEL (14) creatinine 2.15 mg/dL 0.57-1 .00 above high normal Not Available [facility] ([facility]) [address] [facility], [place], [address], 04/15/2024 17:07:35 04/16/19 25 04/15/2024 COMP. METAB OLIC PANEL (14) eGFR 26 mL/mi n/1.7 3 >59 below low normal Not Available [facility] ([facility]) [address] [facility] [place], [address], 04/15/2024 17:07:35 04/16/19 25 04/15/2024 COMP. METAB OLIC PANEL (14) BUN/creatini ne ratio 19 12-28 normal Not Available [facility] ([facility]) [address] [facility] [place], [address], 04/15/2024 17:07:35 04/16/19 25 04/15/2024 COMP. METAB OLIC PANEL (14) sodium 140 mmol/ L 134-14 4 normal Not Available [facility] ([facility]) [address] [place], [address], 04/15/2024 17:07:35 04/16/19 25 04/15/2024 COMP. METAB OLIC PANEL (14) potassium 5.1 mmol/ L 3.5-5. 2 normal Not Available [facility] ([facility]) [address] [facility] [place], [address], 04/15/2024 17:07:35 04/16/19 25 04/15/2024 COMP. METAB OLIC PANEL (14) chloride 110 mmol/ L 96-106 above high normal Not Available [facility] ([facility]) [address] [place], [address], 04/15/2024 17:07:35 04/16/19 25 04/15/2024 COMP. METAB OLIC PANEL (14) carbon dioxide, total TNP mmol/ L Test not perfo rmed. Due to a lack of repro ducib ility with this patie nt sampl e, a valid resul t could not be obtai josé miguel. Not Available [facility] ([facility]) [address] [place], [address], 04/15/2024 17:07:35 04/16/19 25 04/15/2024 COMP. METAB OLIC PANEL (14) calcium 8.6 mg/dL 8.7-10 .3 below low normal Not Available [facility] ([facility]) [address] [place], [address], 04/15/2024 17:07:35 04/16/19 25 04/15/2024 COMP. METAB OLIC PANEL (14) protein, total 6.1 g/dL 6.0-8. 5 normal Not Available [facility] ([facility]) [address] [place], [address], 04/15/2024 17:07:35 04/16/19 25 04/15/2024 COMP. METAB OLIC PANEL (14) albumin 3.6 g/dL 3.9-4. 9 below low normal Not Available [facility] ([facility]) [address] [facility] [place], [address], 04/15/2024 17:07:35 04/16/19 25 04/15/2024 COMP. METAB OLIC PANEL (14) globulin, total 2.5 g/dL 1.5-4. 5 Not Available [facility] ([facility]) [address] [facility] [place], [address], 04/15/2024 17:07:35 04/16/19 25 04/15/2024 COMP. METAB OLIC PANEL (14) bilirubin, total 0.2 mg/dL 0.0-1. 2 normal Not Available [facility] ([facility]) [address] [facility] [place], [address], 04/15/2024 17:07:35 04/16/19 25 04/15/2024 COMP. METAB OLIC PANEL (14) alkaline phosphatase 148 IU/L 44-121 above high normal Not Available [facility] ([facility]) [address] [facility] [place], [address], 04/15/2024 17:07:35 04/16/19 25 04/15/2024 COMP. METAB OLIC PANEL (14) AST (SGOT) 27 IU/L 0-40 normal Not Available [facility] ([facility]) [address] [facility] [place], [address], 04/15/2024 17:07:35 04/16/19 25 04/15/2024 COMP. METAB OLIC PANEL (14) ALT (SGPT) 23 IU/L 0-32 normal Not Available [facility] ([facility]) [address] [facility] [place], [address], 04/15/2024 17:07:35 04/16/19 25 04/15/2024 B-TYP E NATRI URETI C PEPTI DE B-type natriuretic peptide 235.2 pg/mL 0.0-10 0.0 above high normal Sieme ns [facility] metho dolog y Not Available [facility] ([facility]) [address] [place], [address], 04/15/2024 17:07:36 04/16/1904/15/2024 PLEAS E NOTE please note Commen t The date and/o r time of colle ction was not indic ated on the requi sitio n as requi red by state and manuel al law. The date of recei pt of the speci men was used as the colle ction date if not suppl ied. Not Available [facility] ([facility]) [address] [place], [address], 04/15/2024 17:07:36 06/19/1906/19/2024 TSH+F REE T4 TSH 5.960 uIU/m L 0.450- 4.500 above high normal Not Available [facility] ([facility]) [address] [place], [address], 06/19/2024 14:15:06 06/19/1906/19/2024 TSH+F REE T4 T4,free(dire ct) 1.28 NG/dL 0.82-1 .77 normal Not Available [facility] ([facility]) [address] [place], [address], 06/19/2024 14:15:06 06/19/19 25 06/19/2024 CBC WITH DIFFE RENTI AL/PL ATELE T WBC 7.5 x10e3 /uL 3.4-10 .8 normal Not Available [facility] ([facility]) [address] [place], [address], 06/19/2024 14:15:07 06/19/19 25 06/19/2024 CBC WITH DIFFE RENTI AL/PL ATELE T RBC 2.98 x10e6 /uL 3.77-5 .28 below low normal Not Available [facility] ([facility]) [address] [place], [address], 06/19/2024 14:15:07 06/19/19 25 06/19/2024 CBC WITH DIFFE RENTI AL/PL ATELE T hemoglobin 7.3 g/dL 11.1-1 5.9 panic low Clien t Reque sted Flag Not Available [facility] ([facility]) [address] [place], [address], 06/19/2024 14:15:07 06/19/19 25 06/19/2024 CBC WITH DIFFE RENTI AL/PL ATELE T hematocrit 25.6 % 34.0-4 6.6 below low normal Not Available [facility] ([facility]) [address] [place], [address], 06/19/2024 14:15:07 06/19/19 25 06/19/2024 CBC WITH DIFFE RENTI AL/PL ATELE T MCV 86 fL 79-97 normal Not Available [facility] ([facility]) [address] [place], [address], 06/19/2024 14:15:07 06/19/19 25 06/19/2024 CBC WITH DIFFE RENTI AL/PL ATELE T MCH 24.5 pg 26.6-3 3.0 below low normal Not Available [facility] ([facility]) [address] [place], [address], 06/19/2024 14:15:07 06/19/19 25 06/19/2024 CBC WITH DIFFE RENTI AL/PL ATELE T MCHC 28.5 g/dL 31.5-3 5.7 below low normal Not Available [facility] ([facility]) [address] [place], [address], 06/19/2024 14:15:06/19/19 25 06/19/2024 CBC WITH DIFFE RENTI AL/PL ATELE T RDW 16.5 % 11.7-1 5.4 above high normal Not Available [facility] ([facility]) [address] [facility], [place], [address], 06/19/2024 14:15:06/19/19 25 06/19/2024 CBC WITH DIFFE RENTI AL/PL ATELE T platelets 332 x10e3 /uL 150-45 0 normal Not Available [facility] ([facility]) [address] [facility], [place], [address], 06/19/2024 14:15:07 06/19/19 25 06/19/2024 CBC WITH DIFFE RENTI AL/PL ATELE T neutrophils 70 % not estab. normal Not Available [facility] ([facility]) [address] [facility], [place], [address], 06/19/2024 14:15:06/19/19 25 06/19/2024 CBC WITH DIFFE RENTI AL/PL ATELE T lymphs 19 % not estab. normal Not Available [facility] ([facility]) [address] [facility], [place], [address], 06/19/2024 14:15:06/19/19 25 06/19/2024 CBC WITH DIFFE RENTI AL/PL ATELE T monocytes 6 % not estab. normal Not Available [facility] ([facility]) [address] [facility], [place], [address], 06/19/2024 14:15:06/19/19 25 06/19/2024 CBC WITH DIFFE RENTI AL/PL ATELE T eos 4 % not estab. normal Not Available [facility] ([facility]) [address] [place], [address], 06/19/2024 14:15:07 06/19/19 25 06/19/2024 CBC WITH DIFFE RENTI AL/PL ATELE T basos 1 % not estab. 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 0 normal Not Available [facility] ([facility]) [address] [place], [address], 06/19/2024 14:15:07 06/19/19 25 06/19/2024 CBC WITH DIFFE RENTI AL/PL ATELE T lymphs (absolute) 1.4 x10e3 /uL 0.7-3. 1 normal Not Available [facility] ([facility]) [address] [place], [address], 06/19/2024 14:15:07 06/19/19 25 06/19/2024 CBC WITH DIFFE RENTI AL/PL ATELE T monocytes(ab solute) 0.5 x10e3 /uL 0.1-0. 9 normal Not Available [facility] ([facility]) [address] [place], [address], 06/19/2024 14:15:07 06/19/19 25 06/19/2024 CBC WITH DIFFE RENTI AL/PL ATELE T eos (absolute) 0.3 x10e3 /uL 0.0-0. 4 normal Not Available [facility] ([facility]) [address] [place], [address], 06/19/2024 14:15:07 06/19/19 25 06/19/2024 CBC WITH DIFFE RENTI AL/PL ATELE T baso (absolute) 0.1 x10e3 /uL 0.0-0. 2 normal Not Available [facility] ([facility]) [address] [facility], [place], [address], 06/19/2024 14:15:07 06/19/19 25 06/19/2024 CBC WITH DIFFE RENTI AL/PL ATELE T immature granulocytes 0 % not estab. Not Available [facility] ([facility]) [address] [facility], [place], [address], 06/19/2024 14:15:07 06/19/19 25 06/19/2024 CBC WITH DIFFE RENTI AL/PL ATELE T immature grans (abs) 0.0 x10e3 /uL 0.0-0. 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 METAB OLIC PANEL (14) glucose 110 mg/dL 70-99 above high normal Not Available [facility] ([facility]) [address] [place], [address], 06/19/2024 14:15:07 06/19/19 25 06/19/2024 COMP. METAB OLIC PANEL (14) BUN 45 mg/dL 8-27 above high normal Not Available [facility] ([facility]) [address] [facility] [place], [address], 06/19/2024 14:15:07 06/19/19 25 06/19/2024 COMP. METAB OLIC PANEL (14) creatinine 2.01 mg/dL 0.57-1 .00 above high normal Not Available [facility] ([facility]) [address] [facility] [place], [address], 06/19/2024 14:15:07 06/19/19 25 06/19/2024 COMP. METAB OLIC PANEL (14) eGFR 28 mL/mi n/1.7 3 >59 below low normal Not Available [facility] ([facility]) [address] [facility] [place], [address], 06/19/2024 14:15:07 06/19/19 25 06/19/2024 COMP. METAB OLIC PANEL (14) BUN/creatini ne ratio 22 12-28 normal Not Available [facility] ([facility]) [address] [facility] [place], [address], 06/19/2024 14:15:07 06/19/19 25 06/19/2024 COMP. METAB OLIC PANEL (14) sodium 139 mmol/ L 134-14 4 normal Not Available [facility] ([facility]) [address] [place], [address], 06/19/2024 14:15:07 06/19/19 25 06/19/2024 COMP. METAB OLIC PANEL (14) potassium 5.1 mmol/ L 3.5-5. 2 normal Not Available [facility] ([facility]) [address] [place], [address], 06/19/2024 14:15:07 06/19/19 25 06/19/2024 COMP. METAB OLIC PANEL (14) chloride 113 mmol/ L 96-106 above high normal Not Available [facility] ([facility]) [address] [place], [address], 06/19/2024 14:15:06/19/19 25 06/19/2024 COMP. METAB OLIC [...] is very sensi tive. Not Available [facility] ([facility]) [address] [facility], [place], [address], 06/19/2024 14:15:06/19/19 25 06/19/2024 COMP. METAB OLIC PANEL (14) calcium 8.8 mg/dL 8.7-10 .3 normal Not Available [facility] ([facility]) [address] [place], [address], 06/19/2024 14:15:07 06/19/19 25 06/19/2024 COMP. METAB OLIC PANEL (14) protein, total 6.4 g/dL 6.0-8. 5 normal Not Available [facility] ([facility]) [address] [place], [address], 06/19/2024 14:15:07 06/19/19 25 06/19/2024 COMP. METAB OLIC PANEL (14) albumin 3.7 g/dL 3.9-4. 9 below low normal Not Available [facility] ([facility]) [address] [place], [address], 06/19/2024 14:15:07 06/19/19 25 06/19/2024 COMP. METAB OLIC PANEL (14) globulin, total 2.7 g/dL 1.5-4. 5 Not Available [facility] ([facility]) [address] [facility] [place], [address], 06/19/2024 14:15:07 06/19/19 25 06/19/2024 COMP. METAB OLIC PANEL (14) bilirubin, total <0.2 mg/dL 0.0-1. 2 Not Available [facility] ([facility]) [address] [facility] [place], [address], 06/19/2024 14:15:07 06/19/19 25 06/19/2024 COMP. METAB OLIC PANEL (14) alkaline phosphatase 131 IU/L 44-121 above high normal Not Available [facility] ([facility]) [address] [facility], [place], [address], 06/19/2024 14:15:07 06/19/19 25 06/19/2024 COMP. METAB OLIC PANEL (14) AST (SGOT) 10 IU/L 0-40 normal Not Available [facility] ([facility]) [address] [facility] [place], [address], 06/19/2024 14:15:07 06/19/19 25 06/19/2024 COMP. METAB OLIC PANEL (14) ALT (SGPT) 12 IU/L 0-32 normal Not Available [facility] ([facility]) [address] [facility] [place], [address], 06/19/2024 14:15:07 06/19/19 25 06/19/2024 LIPID PANEL cholesterol, total 119 mg/dL 100-19 9 normal Not Available [facility] ([facility]) [address] [facility] [place], [address], 06/19/2024 14:15:08 06/19/19 25 06/19/2024 LIPID PANEL triglyceride s 55 mg/dL 0-149 normal Not Available [facility] ([facility]) [address] [place], [address], 06/19/2024 14:15:08 06/19/19 25 06/19/2024 LIPID PANEL HDL cholesterol 36 mg/dL >39 below low normal Not Available [facility] ([facility]) [address] [facility] [place], [address], 06/19/2024 14:15:08 06/19/19 25 06/19/2024 LIPID PANEL VLDL cholesterol sangeetha 12 mg/dL 5-40 Not Available [facility] ([facility]) [address] [facility] [place], [address], 06/19/2024 14:15:06/19/19 25 06/19/2024 LIPID PANEL LDL chol calc ([facility]) 71 mg/dL 0-99 Not Available [facility] ([facility]) [address] [facility] [place], [address], 06/19/2024 14:15:08 06/19/19 25 06/19/2024 LIPID PANEL LDL calc comment: 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 Not Available [facility] ([facility]) [address] [facility] [place], [address], 06/19/2024 14:15:09 06/19/1906/19/2024 HEMOG LOBIN A1C hemoglobin A1C 6.4 % 4.8-5. 6 above high normal Predi abete s: 5.7 - 6.4 Diabe jo ann: >6.4 Glyce galileo contr ol for adult s with diabe jo ann: <7.0 Not Available [facility] ([facility]) [address] [facility], [place], [address], 06/19/2024 14:15:09 08/12/19 25 08/11/2024 drug scree n, urine AMP negati ve Not Available [address], [address], 08/11/2024 14:56:09 08/12/19 25 08/11/2024 drug scree n, urine BAR negati ve Not Available [address], [address], 08/11/2024 14:56:09 08/12/19 25 08/11/2024 drug scree n, urine BUP negati ve Not Available [address], [address], 08/11/2024 14:56:09 08/12/19 25 08/11/2024 drug scree n, urine BZO negati ve Not Available [address], [address], 08/11/2024 14:56:09 08/12/19 25 08/11/2024 drug scree n, urine STACY negati ve Not Available [address], [address], 08/11/2024 14:56:09 08/12/19 25 08/11/2024 drug scree n, urine FTY negati ve Not Available [address], [address], 08/11/2024 14:56:09 08/12/19 25 08/11/2024 drug scree n, urine MDMA negati ve Not Available [address], [address], 08/11/2024 14:56:09 08/12/1908/11/2024 drug scree n, urine MET negati ve Not Available [address], [address], 08/11/2024 14:56:09 08/12/1908/11/2024 drug scree n, urine MOP negati ve Not Available [address], [address], 08/11/2024 14:56:09 08/12/19 25 08/11/2024 drug scree n, urine MTD negati ve Not Available [address], [address], 08/11/2024 14:56:09 08/12/1908/11/2024 drug scree n, urine OXY negati ve Not Available [address], [address], 08/11/2024 14:56:09 08/12/1908/11/2024 drug scree n, urine PCP negati ve Not Available [address], [address], 08/11/2024 14:56:09 08/12/1908/11/2024 drug scree n, urine TCA negati ve Not Available [address], [address], 08/11/2024 14:56:09 08/12/19 25 08/11/2024 drug scree n, urine THC positi ve Not Available [address], [place], [place], [address], 08/11/2024 14:56:09 03/05/19 25 03/05/2024 CT, abdom en + pelvi s, w/o contr ast No observ ation record ed. [facility] [address], [place], [address], 03/05/2024 15:21:51 03/05/19 25 03/05/2024 CT, chest , w/o contr ast No observ ation record ed. [place] [id number], [place], [address], 03/05/2024 15:21:51 03/08/19 25 03/05/2024 elect rocar diogr am No observ ation record ed. [place] [id number], [place], [address], 03/09/2024 08:21:13 03/15/19 25 03/15/2024 XR, chest , 2 view No observ ation record ed. [place] [id number], [place], [address], 03/16/2024 10:06:59 03/15/19 25 03/15/2024 CT, angio gram, chest , w/ contr ast No observ ation record ed. [place] [id number], [place], [address], 03/16/2024 10:06:24 03/15/19 25 03/15/2024 CT, angio gram, chest , w/ contr ast No observ ation record ed. [place] [id number], [place], [address], 03/16/2024 10:05:58 03/16/19 25 03/15/2024 elect rocar diogr am No observ ation record ed. [facility] [address], [place], [place], [address], 03/16/2024 13:50:58 03/16/19 25 03/15/2024 elect rocar diogr am No observ ation record ed. [facility] [address], [place], [place], [address], 03/16/2024 13:50:44 03/17/19 25 03/17/2024 XR, chest , 2 view No observ ation record ed. [facility] [address], [place], [place], [address], 03/17/2024 13:18:34 03/17/19 25 03/16/2024 stres s echoc ardio gram with doppl er color flow (PROC ) No observ ation record ed. [facility] [address], [place], [place], [address], 03/17/2024 13:18:15 03/19/19 25 03/19/2024 XR, chest , 2 view No observ ation record ed. [facility] [address], [place], [place], [address], 03/19/2024 08:41:39 04/10/19 25 04/10/2024 XR, chest , 2 view No observ ation record ed. [facility] [address], [place], [address], 04/10/2024 16:14:04 04/17/19 25 04/16/2024 XR, chest , 2 view No observ ation record ed. [facility] (X-Ray) [address], [place], [address], 04/16/2024 14:20:52 04/18/19 25 04/16/2024 XR, chest , 2 view No observ ation record ed. [facility] [address], [place], [address], 04/17/2024 11:56:42 04/22/19 25 04/16/2024 elect rocar diogr am No observ ation record ed. [facility] [address], [place], [place], [address], 04/23/2024 08:20:46 04/23/19 25 04/21/2024 , [facility] ardio gram, trans esoph ageal No observ ation record ed. [facility] [address], [place], [place], [address], 04/23/2024 08:20:47 04/28/19 25 04/21/2024 elect rocar diogr am No observ ation record ed. [facility] [address], [place], [address], 04/27/2024 09:33:58 04/28/19 25 04/21/2024 elect rocar diogr am No observ ation record ed. [facility] [address], [place], [address], 04/27/2024 09:33:58 07/03/19 25 07/01/2024 LDCT, chest , for lung cance r scree aaliyah No observ ation record ed. [facility] [address], [place], [address], 07/03/2024 09:03:51 10/06/19 25 10/05/2024 elect rocar diogr am No observ ation record ed. [facility] [address], [place], [address], 10/06/2024 08:11:23 11/16/1911/15/2024 CT, abdom en + pelvi s, w/o contr ast No observ ation record ed. [facility] [address], [place], [address], 11/16/2024 08:37:43 11/16/1911/15/2024 XR, chest , 2 view No observ ation record ed. [facility] [address], [place], [place], [address], 11/16/2024 08:37:21 11/16/1911/15/2024 CT, abdom en + pelvi s, w/ contr ast No observ ation record ed. [facility] [address], [place], [address], 11/16/2024 08:36:56 11/17/1911/15/2024 elect rocar diogr am No observ ation record ed. [facility] [address], [place], [address], 11/16/2024 08:35:30 11/18/1911/16/2024 US, doppl er echoc ardio gram, w/ color flow No observ ation record ed. [facility] [address], [place], [address], 11/17/2024 13:01:52 Result Notes None recorded. 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 Ivonne Jones APRN [address], [place], [address], [place] - [facility] 4 14:58:47 Disorder of bone 10576717 Active 2015 Crystal Julianne null, [place] - [facility] 6 09:30:30 History of cardiovascu lar disease 506900506 Active 2015 Ivonne Jones, SUPERVISOR [employer]ATING [address], [place], [address], [place] - [facility] 4 14:59:00 Colostomy present 465398388 Completed 201509/03/2017 Dinorah Sharp null, [place] - [facility] 8 13:35:52 Type 2 diabetes mellitus 77899187 Active 2015 Ivonne Jones, SUPER[employer] [address], [place], [address], [place] [facility] 4 14:58:43 Hyperlipide farooq 55450114 Active 2015 Ivonne Jones, SUPERVIS[employer] [address], [place], [address], [place] [facility] 4 14:58:53 History of hypertensio n 503730620 Active 2015 Ivonne Jones, SUPERVISOR [employer] [address], [place], [address], [place] [facility] 4 14:58:55 Hypothyroid ism 17117701 Active 2015 Ivonne Jones, SUPERVIS[employer] [address], [place], [address], [place] [facility] 4 14:58:51 Neuropathy due to diabetes mellitus 054653035 Active 2015 Ivonne Jones, SUPERVIS[employer] [address], [place], [address], [place] [facility] 4 14:58:46 Pancreatiti s 01469289 Active 2015 Crystal Julianne null, [place] - [facility] 6 09:32:11 Spasm of urinary bladder 910164420 Completed 201511/23/2015 Crystal Julianne null, [place] - [facility] 6 09:32:45 Insomnia 626258463 Active 2016 Daysivioleta daxa, CHONG [address], [place], [address], [place] [facility] 4 14:58:50 Candidiasis 20078608 Active 2017 Vincent Amin MD [address], [place], [address], [place] [facility] 8 15:37:13 Fatigue 43734258 Active 2017 Anne aguilar, [place] - [facility] 8 10:26:48 Urostomy present 088389325 Active 2017 Daysivioleta Jones, [employer]PER[employer] [address], [place], [address], [place] [facility] 4 14:58:41 External hordeolum 4077288 Active 2017 Vincent Amin MD [address], [place], [address], [place] [facility] 8 12:11:25 Depressive disorder 42780902 Active 2023 Daysivioleta NESTOR mittalN [address], [place], [address], [place] [facility] 4 14:59:02 Chronic obstructive pulmonary disease 67465906 Active 2024 Daysivioleta Jones APRN [address], [place], [address], [place] [facility] 5 15:11:34 Congestive heart failure 25223078 Active 2024 Daysivioleta NESTOR mittalN [address], [place], [address], [place] [facility] 5 15:45:47 Blood group O Rh(D) positive 073858842 Active 2024 Daysivioleta NESTOR mittalN [address], [place], [address], [place] [facility] 5 11:32:24 Problem [...] - [facility] 11/23/2015 09:34:57 Hysterectomy completed Crystal Jluianne [place] - [facility] 11/23/2015 09:37:20 Imaging Results None recorded. Procedure Notes None recorded. Medical Equipment None Reported. Allergies Allergen ID Allergen Name Allergen Category Reaction Reaction Severity Criticality Documentation Date Start Date Code Code System Note Provider Name and Address Organization Details Recorded Time 30026 ibuprofen medicatio n Not available Not available Not available 11/18/20152014 5640 RxNorm Elly Stears null, [place] - [facility] 14:03:15 Medications Name Sig Start Date Stop Date Status Note LastModified by Organization Details LastModified Time Prescript ion - Renewal 07/11 completed [facility] Not Available Not Available Not Available Prescript ion - Clarifica tion 09/23 completed [facility] Not Available Not Available Not Available [...] Disconti nued on: 09/27/19 16 2:00PM;U ser: [email or web address]; Pharmacy Verified : 08/25/19 16 3:50PM Not [...] completed Not Available Not Available Not Available InterviewstreetToLotame Ultra Blue Test Strip TEST BLOOD SUGAR [...] Available Not Available Not Available 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 Not Available Not Available No [...] Updated DateTime 5 154.94 cm 25.3 kg/m2 71503.3 8 g 62 /min 98 % 18 /min 0 94/60 mm[Hg] Cara Campos [place] - [facility] 5 15:09:52 Date Recorded Body height Body mass index (BMI) Body weight Heart rate Oxygen saturation Respiratory rate Pain severity - 0-10 verbal numeric rating [Score] - Reported Systolic And Diastolic Provider Name and Address Organization Details Last Updated DateTime 5 154.94 cm 28.3 kg/m2 18249.8 6 g 120 /min 98 % 18 /min 0 96/62 mm[Hg] Cara Campos [place] - [facility] 5 11:37:47 Date Recorded Body height Respiratory rate Body mass index (BMI) Body weight Heart rate Oxygen saturation Body temperature Systolic And Diastolic Provider Name and Address Organization Details Last Updated DateTime 5 154.94 cm 18 /min 25.5 kg/m2 11134.9 7 g 70 /min 97 % 97.7 [degF] 104/62 mm[Hg] Elly Stears [place] - [facility] 5 13:44:39 Date Recorded Body height Body mass index (BMI) Body weight Heart rate Oxygen saturation Respiratory rate Pain severity - 0-10 verbal numeric rating [Score] - Reported Systolic And Diastolic Provider Name and Address Organization Details Last Updated DateTime 5 154.94 cm 26.5 kg/m2 68600.9 3 g 60 /min 98 % 18 /min 0 110/68 mm[Hg] Cara Andres [place] - [facility] 5 14:10:55 Date Recorded Body height Respiratory rate Body mass index (BMI) Body weight Body temperature Systolic And Diastolic Provider Name and Address Organization Details Last Updated DateTime 5 154.94 cm 20 /min 24.8 kg/m2 96507.6 g 97.8 [degF] 112/64 mm[Hg] Elly Quinteross [place] - [facility] 5 13:51:31 Social History Question Answer Notes LastModified by Organizat ion Details LastModified Time Tobacco Smoking Status Current Every Day Smoker Dariela Julianneyuliet aguilar [facility] 11/23/2015 09:34:05 Do You Have [...] Type Of Diet Are You Following? REGULAR Information not available 10/29/2016 Which Illicit Or [...] Or The Highest Degree You Have Received? 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 03/02/2024 Information not available 03/02/2024 How Many Children Do You Have? 2 Information not available 02/26/2023 What Is Your Current Pack Years? [email or web address] Information not available 02/26/2023 Do You Use Protection Against STDs? Always Information not available 02/26/2023 What Is Your Relationship Status? [email or web address] Information not available 10/29/2016 Do You Use [...] able to care for yourself independently? Yes [email or web address] Information not available 10/29/2016 Do you have difficulty dressing, bathing, grooming, or toileting? No Information not available 02/26/2023 What is your exercise level? None Information not available 02/26/2023 Mental Status Question Answer Note LastModified by Organizat ion Details LastModified Time Do you feel stressed (tense, restless, nervous, or anxious, or unable to sleep at night)? [id number] Information not available 02/26/2023 Do you have [...] Medical History Condition Response Heart Problems Y Kidney or Bladder Problems Y Thyroid Problems Y Depression Y GI Problems Y Hypothyroidism Y Constipation Y Anxiety Disorder Y Diabetes Y Muscle, Joint, or Bone Problems Y Obesity Y Hyperlipidemia Y Hypercholesterolemia Y Neuropathy Y Heart Disease [...] virus, quadrivalent, preservative 7 completed Not Available [facility] 02/28/2019 03:54:44 Pneumococcal conjugate PCV 13 7 completed Not Available [facility] 02/28/2019 03:54:53 Influenza, split virus, trivalent, preservative 4 completed Ivonne Jones, CHONG [address], [place], [address], [place] [facility] 11/29/2023 13:27:24 Influenza, split virus, quadrivalent, preservative 8 completed Not Available [facility] 02/28/2019 03:55:20 Influenza, split virus, quadrivalent, preservative 9 completed Cara Andres null, [place] - [facility] [...] ICD10 Code Diagnosis IMO Codes Diagnosis Note [id number] Anne Mott APRN [facility] [address] [place] [address] 11/23/2015 09:25:12 11/23/2015 13:25:24 Diabetes mellitus 14670621 E11.9 Acquired hypothyroidism 791877679 E03.9 Vitamin D deficiency 347 57645 E55.9 History of cardiovascular disease 035537692 Z86.79 History of hypertension 168590831 Z86.79 Neuropathy due to diabetes mellitus 239058172 E11.40 Hypothyroidism 37150787 E03.9 Hyperlipidemia 40494390 E78.5 [id number] Anne Mott [address] [place] [address] 12/27/2015 10:43:37 12/27/2015 16:15:20 Anxiety 43783378 F41.9 Acquired hypothyroidism 312722311 E03.9 [id number] Anne Mott [address] [place] [address] 01/26/2016 11:16:47 01/26/2016 13:02:03 Neuropathy due to diabetes mellitus 100331607 E11.40 Renewal of prescription 266423311 Z76.0 Disorder of bone 0903032 3 M89.9 Anxiety 66018938 F41.9 Acquired hypothyroidism 249649524 E03.9 [id number] Anne [place] [place] [address] 02/15/2016 16:20:52 02/15/2016 16:55:09 Candidiasis of skin 08515302 B37.2 [id number] Anne [place]34 [address] [place] [address] 02/27/2016 13:27:14 02/27/2016 14:33:44 Anxiety 77098771 F41.9 Type 2 jonathon betes mellitus 04281487 E11.9 Acquired hypothyroidism 811831381 E03.9 Candidiasis 74340812 B37 .9 under breast and vulvo perineal area is much better than last visit [id number] Anne Mott [address] [place] [address] 03/29/2016 08:04:47 03/29/2016 09:47:03 Type 2 diabetes mellitus 84959563 E11.9 Hypothyroidism 44955788 E03.9 Neuropathy due to diabetes mellitus 530488703 E11.40 History of hypertension 741109851 Z86.79 Hyperlipidemia 66846940 E78.5 Anxiety 62987790 F41.9 Renewal of prescription 640502043 Z76.0 Anne Bedford[address] [place] [address] 04/19/2016 09:22:42 04/19/2016 11:19:36 Hypokalemia 19209315 E87.6 Insomnia 135259230 G47.0 0 [id number] Annearturo Mott[address] [place] [address] 04/26/2016 12:30:47 04/26/2016 13:50:41 Renewal of prescription 010249108 Z76.0 Anxiety 09237425 F41.9 Decreased renal function 90988355 R94.4 chronic, referral has been made to nephrology Hypothyroidism 32722747 E03.9 Type 2 jonathon betes mellitus 85237538 E11.9 History of cardiovascular disease 449062026 Z86.79 [id number] Annearturo Mott[address] [place] [address] 05/28/2016 12:40:29 05/28/2016 18:20:31 Anxiety 07054360 F41.9 [id number] Annearturo Mott[address] [place] [address] 07/26/2016 16:00:07 07/26/2016 17:15:20 Anxiety 10636596 F41.9 Body mass index 30+ - obesity 785036047 Z68.33 Nicotine dependence 5629 4008 F17.200 Neuropathy due to diabetes mellitus 866898769 E11.40 Open wound 912520779 S21 .90XD small opening noted wher drain tube was at bottom of sternotomy scar which is well healed [id number] Annearturo Mott[address] [place] [address] 08/28/2016 10:12:46 08/28/2016 10:49:11 Anxiety 27910568 F41.9 Insomnia 341038653 G47.0 0 Essential hypertension 02666836 I10 Hypothyroidism 39617347 E03.9 Hyperlipidemia 55028398 E78.5 Colostomy present 251364 009 Z93.3 Type 2 jonathon betes mellitus 70087575 E11.9 [id number] Anne Mott [address] [place] [address] 09/26/2016 15:41:14 09/26/2016 16:27:06 Anxiety 45772937 F41.9 Insomnia 461950644 G47.0 0 [id number] Anne Mott [address] [place] [address] 4 10/29/2016 10:15:48 10/29/2016 13:51:37 Insomnia 793857688 G47.00 History of hypertension 775230237 Z86.79 Anxiety 56414541 F41.9 History of cardiovascular disease 822503066 Z86.79 Neuropathy due to diabetes mellitus 261452306 E11.40 Colostomy present 873542 009 Z93.3 Hypothyroidism 35067679 E03.9 Type 2 jonathon betes mellitus 67455448 E11.9 Hyperlipidemia 61160954 E78.5 [id number] Annearturo Mott[address] [place] [address] 4 11/26/2016 14:15:45 11/26/2016 15:26:09 Renewal of prescription 254160898 Z76.0 History of cardiovascular disease 622791075 Z86.79 History of hypertension 979894185 Z86.79 Type 2 jonathon betes mellitus 56777721 E11.9 Anxiety 93961874 F41.9 [id number] Anne Mott[address] [place] [address] 12/27/2016 13:29:34 12/27/2016 14:15:59 Renewal of prescription 451968491 Z76.0 Insomnia 300289170 G47.0 0 Active or passive immunization 832190521 Z23 [id number] Anne Mott [address] [place] [address] 01/22/2017 14:06:34 01/22/2017 15:30:08 Renewal of prescription 004769198 Z76.0 Anxiety 88267798 F41.9 Body mass index 30+ - obesity 414973409 Z68.34 [id number] Annearturo Mott [address] [place] [address] 02/28/2017 13:01:09 02/28/2017 13:53:23 Renewal of prescription 926206140 Z76.0 Anxiety 35453863 F41.9 Body mass index 30+ - obesity 603773550 Z68.34 [id number] Annearturo Mott [address] [place] [address] 4 04/25/2017 10:46:10 04/25/2017 12:02:47 Neuropathy due to diabetes mellitus 692473830 E13.40 Renewal of prescription 881775261 Z76.0 Anxiety 68982909 F41.9 History of cardiovascular disease 710575667 Z86.79 Hypothyroidism 21795171 E03.9 [id number] Vincent Amin MD [address] [place] [address] 4 05/23/2017 14:14:23 05/23/2017 15:31:00 Diabetes mellitus 94992150 E11.9 Candidiasis 21857264 B37 .9 Colostomy present 084142 009 Z93.3 Type 2 jonathon betes mellitus 25178784 E11.37X1 Anxiety 60899453 F41.9 Hyperlipidemia 54077259 E78.5 [id number] Anne Tiera[address] [place] [address] 07/11/2017 10:03:27 07/11/2017 11:41:31 Neuropathy due to diabetes mellitus 607896383 E13.40 Insomnia 406447123 G47.0 0 Body mass index 30+ - obesity 515728615 Z68.34 [id number] Annearturo Mott[address] [place] [address] 07/24/2017 12:46:10 07/24/2017 15:28:15 Anxiety 39500767 F41.9 Renewal of prescription 895578127 Z76.0 Candidiasis of skin 4988 3006 B37.2 [id number] Annearturo Mott[address] [place] [address] 08/22/2017 09:40:55 08/22/2017 10:52:06 Anxiety 03500353 F41.9 Type 2 jonathon betes mellitus 85160835 E11.9 Hypothyroidism 20000648 E03.9 History of hypertension 453360249 Z86.79 History of cardiovascular disease 601143128 Z86.79 Fatigue 24431517 R53.83 Viral screening 50646066 4 Z11.59 Screening for malignant neoplasm of colon 419447288 Z12.11 Hyperlipidemia 49878728 E78.5 Vitamin D deficiency 347 72302 E55.9 Anemia 037987901 D64.9 Pain of mu ltiple joints 48351298 M25.50 3007739 Anne Mott[address] [address] 09/03/2017 12:38:43 09/03/2017 13:52:03 Methicillin resistant Staphylococcus aureus infection 339138190 A49.02 Chronic confusion 750122 005 R41.0 [id number] Anne Mott[address] [address] 09/23/2017 13:13:01 09/23/2017 14:08:42 Anxiety 64465512 F41.9 History of hypertension 380236875 Z86.79 [id number] Betsey Cuellar[address] [place] [address] 10/24/2017 15:22:59 10/24/2017 17:13:34 Anxiety 78562878 F41.9 Benign hypertension 1072 5009 I10 [id number] Anne Mott [address] [place] [address] 11/20/2017 13:42:52 11/20/2017 15:14:18 Anxiety 68694893 F41.9 Neuropathy due to diabetes mellitus 925665434 E13.40 Insomnia 164946452 G47.0 0 Administra tion of influenza vaccine 66368192 Z23 Type 2 jonathon betes mellitus 18233670 E11.9 History of cardiovascular disease 054666860 Z86.79 [id number] Vincent Amin MD [facility] [address] [place], [place] [address] [place] [address] 12/19/2017 15:49:29 12/19/2017 18:10:12 Anxiety 61588635 F41.9 Candidiasis of skin 4988 3006 B37.2 Hordeolum externum of upper eyelid of right eye 5334124481 54177 H00.011 Candidiasis 24810489 B37 .9 History of hypertension 441481055 Z86.79 Neuropathy due to diabetes mellitus 424281708 E11.40 Hyperlipidemia 97847686 E78.5 Pancreatitis 10060570 K8 5.90 External hordeolum 20816 08 H00.019 Urostomy present 4613280 04 Z93.6 [id number] Betsey Cuellar APRN [facility] [address] [place], [place] [address] [place] [address] 02/20/2018 08:48:36 02/20/2018 09:19:38 Anxiety 25492328 F41.9 Neuropathy due to diabetes mellitus 994341566 E11.40 Benign hypertension 1072 5009 I10 Insomnia 758398747 G47.0 0 Hypothyroidism 51034034 E03.9 Fecal occu lt blood: positive 594082964 R19.5 [id number] Ivonne Jones APRN [address] [address] 02/26/2023 13:49:28 02/26/2023 15:29:07 Anxiety 80231980 F41.9 discussed with pt and daughter that due to her pot smoking daily and she takes 4 controlled substance, at this time I would not take those over. discussed if she would stop smoking pot and give a clean uds I could do her xanax and gabapentin but would not write norco and ambien. Depressive disorder 3823 3387 F32.A History of cardiovascular disease 345397909 Z86.79 History of hypertension 844665771 Z86.79 Hypothyroidism 62284400 E03.9 Insomnia 466981715 G47.0 0 Neoplasm o f urinary bladder 826712157 D49.4 Neuropathy due to diabetes mellitus 910559534 E11.40 Type 2 jonathon betes mellitus 55966448 E11.9 pt interested in omnipod pump. Urostomy present 7452146 04 Z93.6 [id number] Ivonne Robert [place] [address] 03/26/2023 10:33:57 03/26/2023 11:48:39 Anxiety 60138157 F41.9 discussed with pt and daughter due to her smoking pot she needs to work on stop smoking. will send xanax and take it over. Depressive disorder 3548 9007 F32.A will increase depression med and send sleep aid. Type 2 jonathon betes mellitus 79403897 E11.9 Long-term current use of benzodiazepine 6312109727 5085368 Z79.899 Insomnia 698153046 G47.0 0 6991203 Daysivioleta Jones [place] [address] 04/09/2023 10:59:34 04/09/2023 11:37:43 Insomnia 824035202 G47.00 discussed risk with pt Anxiety 55987031 F41.9 discussed with pt and daughter due to her smoking pot she needs to work on stop smoking. will send xanax and take it over. [id number] Ivonne Jones [place] [address] 04/15/2023 10:51:49 04/15/2023 12:57:47 Type 2 diabetes mellitus 93347577 E11.9 omnipod pod will not connect to pump notified omnipod customer service [id number] Daysivioleta daxa [place] [address] 05/07/2023 10:38:41 05/07/2023 11:06:32 Anxiety 16834890 F41.9 discussed with pt and daughter due to her smoking pot she needs to work on stop smoking. will send xanax and take it over.pt states she has continued to not smoke pot. Type 2 jonathon betes mellitus 11524911 E11.9 call omnipod for replacemen t pump- number given to pt [id number] Ivonne Jones [address] [address] 05/10/2023 10:37:59 05/10/2023 11:39:12 Type 2 diabetes mellitus 85643561 E11.9 omnipod set up and pt verbalizes understand ing [id number] Ivonne Jones [address] [address] 05/13/2023 10:53:27 05/13/2023 11:57:27 Type 2 diabetes mellitus 72692156 E11.9 dexcom set up and pt verbalizes understand ing [id number] Ivonne Jones [address] [address] 05/31/2023 08:50:06 05/31/2023 09:49:38 Type 2 diabetes mellitus 76375038 E11.9 dexcom set up and pt verbalizes understand ing Anxiety 48766552 F41.9 discussed with pt and daughter due to her smoking pot she needs to work on stop smoking. will send xanax and take it over.pt states she has continued to not smoke pot. Vitamin D deficiency 347 71316 E55.9 4331600 Ivonne Jones [address] [address] 06/17/2023 09:04:34 06/17/2023 09:45:38 Acute confusion 667793148 R41.0 Chronic ki dney disease 890573563 N18.9 Acute urin glenroy tract infection 331767235 N39.0 if symptoms worsen or no improvemen t return or go to ed [id number] Ivonne Jones [address] [address] 06/25/2023 10:50:22 06/25/2023 11:21:34 Depressive disorder 62154502 F32.A will increase depression med and send sleep aid. Anxiety 94388249 F41.9 discussed with pt and daughter due to her smoking pot she needs to work on stop smoking. will send xanax and take it over.pt states she has continued to not smoke pot. Type 2 jonathon betes mellitus 12888749 E11.9 [id number] Ivonne Jones APRN [address] [address] 10/17/2023 14:02:27 10/17/2023 14:34:54 Anxiety 39100396 F41.9 Pt compliant with plan of careKasper reviewedme dication compliance discussedL ast uds:10/17/23 Control substance agreement on file Long-term current use of benzodiazepine 9212553558 3431111 Z79.899 discussed uds results and pt states she will stop smoking pot. discussed next visit if uds not neg will start adjusting meds Type 2 jonathon betes mellitus 47904332 E11.9 discussed the importance to check glucosewri te it down in log and bring to next appointmen tdiscussed importance of taking insulin and taking care of self. [id number] Ivonne Jones APRN [address] [address] 11/15/2023 09:01:36 11/15/2023 09:58:44 Anxiety 86982964 F41.9 Pt compliant with plan of careKasper reviewedme dication compliance discussedL ast uds:10/17/23 Control substance agreement on filewill give 7 extra tabs to take at noon if needed on days where her anxiety is increased Depressive disorder 3548 9007 F32.A History of hypertension 313179248 Z86.79 History of cardiovascular disease 991611611 Z86.79 Hyperlipidemia 14753884 E78.5 Hypothyroidism 33811346 E03.9 Type 2 jonathon betes mellitus 98863792 E11.9 discussed the importance to check glucosewri te it down in log and bring to next appointmen tdiscussed importance of taking insulin and taking care of self. Neuropathy due to diabetes mellitus 358293075 E11.40 Urostomy present 3230130 04 Z93.6 Candidiasis 41965221 B37 .9 keep area clean and dry apply cream [id number] Ivonne Jones APRN [address] [address] 11/29/2023 10:40:35 11/29/2023 11:26:24 Influenza vaccine needed 3573387791 106 Z23 Pain of ri ght upper arm 7791379333 04254 M79.621 Type 2 jonathon betes mellitus 24563464 E11.9 discussed the importance to check glucosewri te it down in log and bring to next appointmen tdiscussed importance of taking insulin and taking care of self. Pain of ri ght shoulder joint 5558220761 0538925 M25.559 [id number] Ivonne Jones APRN [address] [address] 12/24/2023 10:36:27 12/24/2023 11:33:59 Renewal of prescription 502802270 Z76.0 Depressive disorder 3548 9007 F32.A Type 2 jonathon betes mellitus 17755783 E11.9 discussed the importance to check glucosewri te it down in log and bring to next appointmen tdiscussed importance of taking insulin and taking care of self. Vitamin D deficiency 347 76481 E55.9 History of cardiovascular disease 267117676 Z86.79 Restless l egs syndrome 70172381 G25.81 Urostomy present 9355382 04 Z93.6 [id number] Ivonne Jones APRN [address] [address] 01/21/2024 14:10:39 01/21/2024 15:59:35 Long-term current use of benzodiazepine 5279286427 1026106 Z79.899 discussed uds results. again discussed the importance of not smoking pot with meds. pt states it helps with anxiety. will increase meds discussed the concerns of her continuing to smoke pot and her contract Anxiety 22151362 F41.9 Pt compliant with plan of careMariahsper reviewedme dication compliance discussedL ast uds:Control substance agreement on filewill give 7 extra tabs to take at noon if needed on days where her anxiety is increased [id number] Ivonne Jones APRN [address] [address] 02/13/2024 13:49:38 02/13/2024 15:05:04 Acute exacerbation of chronic obstructive pulmonary disease 815177452 J44.1 continue steroidsbr eathing txif symptoms worsen or do not improve return Candidiasis of skin 4988 3006 B37.2 if worsen returnclea n skin well apply powder and then vaseline, then gauze [id number] Ivonne Jones APRN [address] [address] 03/02/2024 14:49:29 03/02/2024 16:01:58 Candidiasis of mouth 80826085 B37.0 Memory impairment 563043 006 R41.3 [id number] Ivonne Jones [address] [address] 03/26/2024 14:43:32 03/26/2024 15:44:32 Pressure injury stage I 8247415799 L89.91 dressing applied to buttocks- wound care referral sent Congestive heart failure 68883871 I50.9 History of cardiovascular disease 372582854 Z86.79 call cardiology mercedes if plavix is not in home meds- discussed the need to have plavix unless told by cardiology not to be on Pneumonia 957794208 J18. 9 continue treatment [id number] Daysivioleta Jones [address] [address] 04/14/2024 11:10:09 04/14/2024 12:13:43 Chronic obstructive pulmonary disease 76134682 J44.9 Urostomy present 5871333 04 Z93.6 Abnormal weight gain 161 757665 R63.5 Dyspnea 424902350 R06.00 pt refuses to go to ed. discussed risk of not going pt still declines pt states she is not going to [facility] [id number] [facility] [address] [address] 05/11/2024 13:31:52 05/11/2024 13:57:29 Anxiety 56693980 F41.9 Pt compliant with plan of careKasper reviewedme dication compliance discussedL ast uds:Control substance agreement on filewill give 7 extra tabs to take at noon if needed on days where her anxiety is increased Unexplaine d weight loss 680125461 R63.4 History of cardiovascular disease 657043361 Z86.79 History of primary malignant neoplasm of urinary bladder 412181228 Z85.51 Screening for malignant neoplasm of breast 134009406 Z12.39 [id number] Ivonne daxa [employer] [address] [address] 06/18/2024 13:58:48 06/18/2024 14:40:44 Candidiasis of skin 09883865 B37.2 461729 if worsen returnclea n skin well apply powder and then vaseline, then gauze Pruritus of vagina 61486 003 N89.8 153744 [id number] Ivonne Jones APRN [address] [address] 08/11/2024 13:37:47 08/11/2024 14:45:46 Anxiety 57219780 F41.9 Pt compliant with plan of careAmador reviewedme dication compliance discussedL ast uds:08/12/19 25Control substance agreement on fileuds results discussed- discussed pp control substance policy Type 2 jonathon betes mellitus 77183657 E11.9 discussed the importance to check glucosewri te it down in log and bring to next appointmen t Normal weight 33292248 Z 68.24 0169463013 24.8 Family conflict 86028141 Z63.8 87752 Chronic constipation 236 978641 K59.09 410402 Health Concerns Section Related Observation LastModified by Organization Detai ls LastModified Time None Recorded Concern Status LastModified by Organization Details LastModified Time None Recorded Advance Directives Directive N: Payers Insurance Date Sequence Insurance Name Policy Number Policy Garnica Covered Member ID Garnica Member ID Guarantor Name 11/11/2024 2 [place] [place]TRADITIO NAL Laxmi Cronin [id number] Laxmi Cronin 08/11/2024 2 [place]AD[place] RAFA Cronin [id number] Laxmi Cronin 04/02/2023 SLIDING FEE SCHEDULE - DISCOUNT Laxmi Cronin 11/11/2024 1 [employer] - GOLD PLUS (MEDICARE REPLACEMENT/ ADVANTAGE - HMO) Laxmi Cronin [id number] Laxmi Cronin 08/11/2024 2 [place] Laxmi Cronin [id number] Laxmi Cronin 11/12/2024 [facility] - [place] [facility] (MEDICARE) Laxmi Cronin [id number] Laxmi Cronin Notes Date Note Type Note Provider Name and Address Organization Details Recorded Time 03/26/2024 text/html Emergency Depart ment Follow-Up RecordReported by PatientEmergency Room Follow-Up RecordFor discharge information, patient reportsname of hospital/urgent care patient was seen: ([facility] ),patient presented to hospital/urgent care on [...] to kidneys/urinary tract and the other at [facility] for pneumonia and pulmonary embolus. Ivonne Jones APRN [address], [place], [address], [place] - [facility] 03/26/2024 15:49:08 04/14/2024 text/html ROS as noted in the HPI 63 yr old female presents with raspy cough and short of breath. She has gained around 15 pounds in the last few weeks. Ivonne Jones APRN [address], [place], [address], [place] [facility] 04/14/2024 12:06:30 05/11/2024 text/html 63 year old female who presents to the office today for a follow up on anxiety, needs alprazolam refilled. pt states meds help with her anxiety.pt has lost 15lbs since last visit on 3-4-25,declines colonoscopy, will do mamm.labs,urology consult, pt states she just is not hungry or feel like eating. Ivonne JonesCHONG [address], [place], [address], [place] [facility] 05/11/2024 14:10:36 06/18/2024 text/html ROS as noted in the HPI 64 yr old female presents for vaginal discharge and itching for over a week. She is red under abdomen, breast and groin. Ivonne JonesCHONG [address], [place], [address], [facility] - [...] Ivonne JonesCHONG [address], [place], [address], [place] - [facility] 08/11/2024 16:56:42 OBGyn Episode No OBEpisode recorded.
--- OUTSIDE RECORDS SUMMARY | 2025-01-11 06:19 | XMS_ITS | Encounter Summary ---
Author Organization [employer] ([place], [place], [place], [place], [place]) Address [address] [place] [address] Care Team Providers Care Health Care Manager Name Role Phone Unavailable Primary Care Provider Unavailabl e Encounter Details Date Type Department Care Team (Late st Contact Info) Description 03/25/2018 Transcribed Document [facility] [place] [facility] [place] [address] ProviderZion MD [address] [place] [id number] Social History Tobacco Use Types Packs/Day Years Used Date Smoking Tobacco: Never Assessed Comments Unknown Sex and Gender Information Value Date Recorded Sex Assigned at Not on file Legal Sex Female 4:39 PM CDT Gender Identity Not on file Sexual Orientation Not on file documented as of this encounter Miscellaneous Notes * Cerner Conversion Note - Zion Alonso MD - 03/25/2018 9:14 AM BOTTLER Patient: TEHAN CRONIN Age: 57 years Sex: Female : 1960 Associated Diagnoses: None Author: CARROLL HIGH MD-INF Basic Information CC: Sepsis bacteremia 03/19/18 4/4 bottles for Group b strep ([facility]) History of Present Illness 57-year-old white [...] to have bradycardia and was admitted to [facility] on 03/23/17. I was consulted on 03/25/17. The patient had been started on vancomycin and Rocephin. Urine culture obtained at [facility] [...] cefTRIAXone (Rocephin) - 2 Gram, IV Piggyback, [id number], infuse over 30 Minute(s), Routine vancomycin + Sodium Chloride 0.9% intravenous solution 250 m - 750 mg, IV Piggyback, [id number], infuse over 1 Hour(s) Anticoagulant heparin - [...] 11:52 - SUSI BOWMAN RN 2006 Cholecystectomy; ([id number]). Comments: 02/17/2015 11:52 - SUSI BOWMAN RN 2007 umbilical hernia repair. Social History Social & Psychosocial Habits Tobacco 02/17/2015 Tobacco Use Within Last Twelve Months Cigarettes Smoking Status Current every day smoker Years of Tobacco Use 40 Packs/Tins Daily 1 Smoking Cessation Information Provided Yes . , 3 children, lives in [facility] about 1[place]2 hours from [place].. Physical Examination VS/Measurements Vitals Signs (last 24 [...] Normal strength, No tenderness. Integumentary: Warm, Dry, [place], No pallor, No rash, Left chest wall [...] No Radiology Results Found Diagnostic Findings: ACC: [id number] ORDER: Culture Blood DATE: 03/23/2018 17:49 SOURCE: Blood SITE: Reports Pre 03/24/2018 23:02 No growth at 1 day. Pre 03/24/2018 16:03 Culture less than 24 Hrs old == [facility]: [id number] ORDER: Culture Blood DATE: 03/23/2018 17:49 SOURCE: Blood SITE: Reports Pre 03/24/2018 23:02 No growth at 1 day. Pre 03/24/2018 16:03 Culture less than 24 Hrs old == . Impression and Plan 1. Group B streptococcus sepsis 03/19/18 in 4 out of 4 blood culture bottles positive at [facility] (spoke to Maurice Spencer, at [facility]). The high-grade bacteremia suggests intravascular source [...]
--- OUTSIDE RECORDS SUMMARY | 2025-01-11 06:19 | XMS_ITS | Encounter Summary ---
Author Organization [employer] ([place], [place], [place], [place], [place]) Address [address] [place] [address] Care Team Providers Care Failure Analysis Engineer Name Role Phone Unavailable Primary Care Provider Unavailabl e Encounter Details Date Type Department Care Team (Late st Contact Info) Description 03/27/2018 Transcribed Document [facility] [address] [place] [address] ProviderZion MD [address] [place], [place] [id number] Social History Tobacco Use Types Packs/Day Years Used Date Smoking Tobacco: Never Assessed Comments Unknown Sex and Gender Information Value Date Recorded Sex Assigned at Not on file Legal Sex Female 4:39 PM CDT Gender Identity Not on file Sexual Orientation Not on file documented as of this encounter Miscellaneous Notes * Cerner Conversion Note - Historical ProviderMD - 03/27/2018 8:58 AM CRIBBING SETTER Consult Phone Call Documentation Entered On: 03/27/2018 [...] Mabel Sampson SWAN - 03/27/2018 9:19 EST Electronically signed by Vinayak Azul Conversion [employer] at 05/29/2022 8:34 PM CDT documented in this encounter Plan of Treatment Not on file documented as of this encounter Visit Diagnoses Not on filedocumented in this encounter
--- OUTSIDE RECORDS SUMMARY | 2025-01-11 06:19 | XMS_ITS | Encounter Summary ---
Author Organization [employer] ([place], [place], [place], [place], [place]) Address [address] [place] [address] Care Team Providers Care Industrial Millwright Name Role Phone Unavailable Primary Care Provider Unavailabl e Encounter Details Date Type Department Care Team (Late st Contact Info) Description 03/27/2018 Transcribed Document [facility] [place] [facility] [place] [address] ProviderZion MD [address] [place] [phone] Social History Tobacco Use Types Packs/Day Years Used Date Smoking Tobacco: Never Assessed Comments Unknown Sex and Gender Information Value Date Recorded Sex Assigned at Not on file Legal Sex Female 4:39 PM CDT Gender Identity Not on file Sexual Orientation Not on file documented as of this encounter Miscellaneous Notes * Cerner Conversion Note - Zion ProviderMD - 03/27/2018 10:05 AM HYDRAULIC ROCK DRILL OPERATOR Patient: ETHAN LOREDO Age: 57 Years Sex: [...]
--- OUTSIDE RECORDS SUMMARY | 2025-01-11 06:19 | XMS_ITS | Encounter Summary ---
Author Organization [employer] ([place], [place], [place], [place], [place]) Address [address] [place] [address] Care Team Providers Care Distribution Specialist Name Role Phone Unavailable Primary Care Provider Unavailabl e Encounter Details Date Type Department Care Team (Late st Contact Info) Description 03/24/2018 Transcribed Document [facility] [place] Family Medicine [address] [place] [address] ProviderZion MD [address] [place] [address] Social History Tobacco Use Types Packs/Day Years Used Date Smoking Tobacco: Never Assessed Comments Unknown Sex and Gender Information Value Date Recorded Sex Assigned at Not on file Legal Sex Female 4:39 PM CDT Gender Identity Not on file Sexual Orientation Not on file documented as of this encounter Miscellaneous Notes * Cerner Conversion Note - Historical ProviderMD - 03/24/2018 1:34 PM ENTERPRISE APPLICATION DEVELOPER Consult Phone Call Documentation Entered On: 03/24/2018 14:54 EST Performed On: 03/24/2018 14:55 EST by MANE CARROLL Phone Call for Consults Consult Phone Call/Page Attempt : First call Consult Reason : Called in Consult on 03/24/18 at 1455 for: +positive blood cultures at [facility]SH perDr. Christian COLETHA - 03/24/2018 14:53 EST Electronically signed by [facility] Conversion Sand Conditioner Machine Cerner at 05/29/2022 8:51 PM CDT documented in this encounter Plan of Treatment Not on file documented as of this encounter Visit Diagnoses Not on filedocumented in this encounter
--- OUTSIDE RECORDS SUMMARY | 2025-01-11 06:19 | XMS_ITS | Encounter Summary ---
Author Organization [employer] ([place], [place], [place], [place]) Address [address] [place] [address] Care Team Providers Care Master Rigger Name Role Phone Unavailable Primary Care Provider Unavailabl e Encounter Details Date Type Department Care Team (Late st Contact Info) Description 03/24/2018 Transcribed Document [facility] [place] [address] [place] [address] ProviderZion MD [address] [place] [address] Social History Tobacco Use Types [...] - Historical ProviderMD - 03/24/2018 3:32 PM CENSUS ENUMERATOR Event Note Entered On: 03/24/2018 15:32 EST [...]
--- OUTSIDE RECORDS SUMMARY | 2025-01-11 06:19 | XMS_ITS | Encounter Summary ---
Author Organization [employer] ([place], [place], [place], [place], [place]) Address [address] [place] [address] Care Team Providers Care Emergency Department Rn Name Role Phone Unavailable Primary Care Provider Unavailabl e Encounter Details Date Type Department Care Team (Late st Contact Info) Description 03/27/2018 Transcribed Document [facility] [place] [address] [place] [address] ProviderZion MD [address] [place] [address] Social History Tobacco Use Types [...] - Historical ProviderMD - 03/27/2018 5:00 AM CHARGING PLUG PLACER Chart Check - Review Order Profile Entered On: 03/27/2018 5:00 EST Performed On: 03/27/2018 5:00 EST by Gabriela Reyes RN Chart Check Chart Reviewed Date and Time : 03/27/2018 5:05 EST Powerplans Initiated/Discontinued as Appropriate : Yes All Active Orders Reviewed : Yes Gabriela Reyes, REGULO - 03/27/2018 5:00 EST Electronically signed by Vinayak Azul Conversion Pressing Department Supervisor Cerner at 05/29/2022 8:44 PM CDT documented in this encounter Plan of Treatment Not on file documented as of this encounter Visit Diagnoses Not on filedocumented in this encounter
--- OUTSIDE RECORDS SUMMARY | 2025-01-11 06:19 | XMS_ITS | Encounter Summary ---
Author Organization [employer] ([place], [place], [place], [place], [place]) Address [address] [place] [address] Care Team Providers Care Cleaner And Preparer Name Role Phone Unavailable Primary Care Provider Unavailabl e Encounter Details Date Type Department Care Team (Late st Contact Info) Description 03/27/2018 Transcribed Document [facility] [place] [address] [place] [address] ProviderZion MD [address] [place], [place] [phone] Social History Tobacco Use Types Packs/Day Years Used Date Smoking Tobacco: Never Assessed Comments Unknown Sex and Gender Information Value Date Recorded Sex Assigned at Not on file Legal Sex Female 4:39 PM CDT Gender Identity Not on file Sexual Orientation Not on file documented as of this encounter Miscellaneous Notes * Cerner Conversion Note - Historical ProviderMD - 03/27/2018 8:16 AM LENO SEWER Consult Phone Call Documentation Entered On: 03/27/2018 [...]
--- OUTSIDE RECORDS SUMMARY | 2025-01-11 06:19 | XMS_ITS | Encounter Summary ---
Author Organization [employer] ([place], [place], [place], [place], [place]) Address [address] [place] [address] Care Team Providers Care President Sales And Marketing Name Role Phone Unavailable Primary Care Provider Unavailabl e Encounter Details Date Type Department Care Team (Late st Contact Info) Description 03/28/2018 Transcribed Document [facility] [place] [address] [place] [address] ProviderZion MD [address] [place], [place] [phone] Social History Tobacco Use Types Packs/Day Years Used Date Smoking Tobacco: Never Assessed Comments Unknown Sex and Gender Information Value Date Recorded Sex Assigned at Not on file Legal Sex Female 4:39 PM CDT Gender Identity Not on file Sexual Orientation Not on file documented as of this encounter Miscellaneous Notes * Cerner Conversion Note - Historical ProviderMD - 03/28/2018 2:00 AM TEAM PSYCHOLOGIST Knitting Inspector Details Entered On: 03/28/2018 6:03 EST Performed [...]
--- OUTSIDE RECORDS SUMMARY | 2025-01-11 06:19 | XMS_ITS | Clinical Summary ---
Author Organization [employer] ([place], [place], [place], [place], [place]) Address [address] [place] [address] Care Team Providers Care Supervisor Force Adjustment Name Role Phone Unavailable Primary Care Provider [...]
--- OUTSIDE RECORDS SUMMARY | 2025-01-11 06:19 | XMS_ITS | Encounter Summary ---
Author Organization [employer] ([place], [place], [place], [place], [place]) Address [address] [place] [address] Care Team Providers Care Website Designer Name Role Phone Unavailable Primary Care Provider Unavailabl e Encounter Details Date Type Department Care Team (Late st Contact Info) Description 03/26/2018 Transcribed Document [facility] [place] [facility] [place] [address] ProviderZion MD [address] [place] [phone] Social History Tobacco Use Types Packs/Day Years Used Date Smoking Tobacco: Never Assessed Comments Unknown Sex and Gender Information Value Date Recorded Sex Assigned at Not on file Legal Sex Female 4:39 PM CDT Gender Identity Not on file Sexual Orientation Not on file documented as of this encounter Miscellaneous Notes * Cerner Conversion Note - Zion Alonso MD - 03/26/2018 10:05 AM LACING CUTTER Patient: ETHAN CRONIN Age: 57 years Sex: Female : 1960 Associated Diagnoses: None Author: CARROLL HIGH MD-INF Basic Information CC: Sepsis bacteremia 03/19/18 4/4 bottles for Group b strep ([facility]) History of Present Illness 57-year-old white female with history of bladder cancer, atrial flutter, pacemaker placement 2016, hypertension, DM2, COPD, pancreatitis, who recently had blood cultures obtained at [facility] on 03/19/18 for fever which were positive in 4 out of 4 bottles for group B Streptococcus. Patient was to start IV antibiotics but was found to have bradycardia and was admitted to [facility] on 03/23[facility]17. I was consulted on 03/25/17. The patient had been started on vancomycin and Rocephin. Urine culture obtained at [facility] was positive for multiple bacteria [...] cefTRIAXone (Rocephin) - 2 Gram, IV Piggyback, I42BRpn, infuse over 30 Minute(s), Routine Anticoagulant heparin [...] Normal strength, No tenderness. Integumentary: Warm, Dry, [place], No pallor, No rash, Left chest wall [...] 10) Troponin <0.015 (FEB 10) , ACC: [id number] ORDER: Culture Blood DATE: 03/23/2018 17:49 SOURCE: Blood SITE: Reports Pre 03/25/2018 23:01 No growth at 2 days. Pre 03/24/2018 23:02 No growth at 1 day. Pre 03/24/2018 16:03 Culture less than 24 Hrs old == ACC: [id number] ORDER: Culture Blood DATE: 03/23/2018 17:49 SOURCE: Blood SITE: Reports Pre 03/25/2018 23:01 No growth at 2 days. Pre 03/24/2018 23:02 No growth at 1 day. Pre 03/24/2018 16:03 Culture less than 24 Hrs old == . Procedure Critical Care - Code Management Assessment: Radiology Results (Last 48 hours) [id number] -- 03/23/2018 17:08 CT Abdomen Pelvis WO [...] of 4 blood culture bottles positive at [facility] (spoke to Maurice Spencer, at [facility]). The high-grade bacteremia suggests intravascular source including [...]
--- OUTSIDE RECORDS SUMMARY | 2025-01-11 06:19 | XMS_ITS | Encounter Summary ---
Author Organization [employer] ([place], [place], [place], [place], [place]) Address [address] [place] [address] Care Team Providers Care Product/Industry Consultant Name Role Phone Unavailable Primary Care Provider Unavailabl e Encounter Details Date Type Department Care Team (Late st Contact Info) Description 03/25/2018 Transcribed Document [facility] [place] [facility] [place] [address] ProviderZion MD [address] [place] [address] Social History Tobacco Use Types Packs/Day Years Used Date Smoking Tobacco: Never Assessed Comments Unknown Sex and Gender Information Value Date Recorded Sex Assigned at Not on file Legal Sex Female 4:39 PM CDT Gender Identity Not on file Sexual Orientation Not on file documented as of this encounter Miscellaneous Notes * Cerner Conversion Note - Zion ProviderMD - 03/25/2018 8:01 AM TRANSCRIPTION COORDINATOR Patient: ETHAN CRONIN Age: 57 years Sex: Female : 1960 Associated Diagnoses: None Author: NAVID STARKEY, [facility] 57 year old female with bradycardia during outpt infusion for bacteremia PMH: CAD, CABG/pacemaker 3 years ago, DM, HTN, and ME Consult: vancomycin Indication: bacteremia Goal of Trough: [...]
--- OUTSIDE RECORDS SUMMARY | 2025-01-11 06:19 | XMS_ITS | Encounter Summary ---
Author Organization [employer] ([place], [place], [place], [place], [place]) Address [address] [place] [address] Care Team Providers Care Video Photographer Name Role Phone Unavailable Primary Care Provider Unavailabl e Encounter Details Date Type Department Care Team (Late st Contact Info) Description 03/25/2018 Transcribed Document [facility] [place] [address] [place] [address] ProviderZion MD [address] [place] [address] Social History Tobacco Use Types [...] - Historical ProviderMD - 03/25/2018 5:00 PM MANAGER MEDICAL AFFAIRS Chart Check - Review Order Profile Entered [...]
--- OUTSIDE RECORDS SUMMARY | 2025-01-11 06:19 | XMS_ITS | Encounter Summary ---
Author Organization [employer] ([place], [place], [place], [place], [place]) Address [address] [place] [address] Care Team Providers Care Paper Coater Name Role Phone Unavailable Primary Care Provider Unavailabl e Encounter Details Date Type Department Care Team (Late st Contact Info) Description 03/27/2018 Transcribed Document [facility] [place] [facility] [place] [address] ProviderZion MD [address] [place] [phone] Social History Tobacco Use Types Packs/Day Years Used Date Smoking Tobacco: Never Assessed Comments Unknown Sex and Gender Information Value Date Recorded Sex Assigned at Not on file Legal Sex Female 4:39 PM CDT Gender Identity Not on file Sexual Orientation Not on file documented as of this encounter Miscellaneous Notes * Cerner Conversion Note - Historical ProviderMD - 03/27/2018 9:05 AM GLOBE TESTER Patient: ETHAN LOREDO Age: 57 Years Sex: [...]
--- OUTSIDE RECORDS SUMMARY | 2025-01-11 06:19 | XMS_ITS | Encounter Summary ---
Author Organization [employer] ([place], [place], [place], [place], [place]) Address [address] [place] [address] Care Team Providers Care Sand Caster Name Role Phone Unavailable Primary Care Provider Unavailabl e Encounter Details Date Type Department Care Team (Late st Contact Info) Description 03/26/2018 Transcribed Document [facility] [place] [address] [place] [address] ProviderZion MD [address] [place] [address] Social History Tobacco Use Types [...] - Historical ProviderMD - 03/26/2018 2:00 AM PORTABLE MACHINE SANDER Recreational Vehicle Resort Manager Details Entered On: 03/26/2018 1:20 EST Performed [...]
--- OUTSIDE RECORDS SUMMARY | 2025-01-11 06:19 | XMS_ITS | Encounter Summary ---
Author Organization [employer] ([place], [place], [place], [place], [place]) Address [address] [place] [address] Care Team Providers Care Quarter Backer Name Role Phone Unavailable Primary Care Provider Unavailabl e Encounter Details Date Type Department Care Team (Late st Contact Info) Description 03/28/2018 Transcribed Document [facility] [place] [facility] [place] [address] ProviderZion MD [address] [place] [address] Social History Tobacco Use Types [...] - Historical ProviderMD - 03/28/2018 2:27 PM PUPPY TRAINER Care Management Assessment/Plan Entered On: 03/28/2018 14:57 EST Performed On: 03/28/2018 14:27 EST by Ninoska Cuellar Rn-Experimental Outboard Motors Mechanic Ed Care Management Note Anticipated Discharge Date : 04/03/2018 14:00 EST Care Management Note : Called [facility] and spoke with Chiquita and updated her on IV abx needs. SHe will check cost and call CM back to see if bed offer is still on the table. CM left VM for Sheri with [facility] to update her, left requesting return phone call. CM updated pt and she appears discouraged that [facility] will not accept her as a pt. She tells CM that she is considering just going home. BLAKE also called Clem with [facility] to argueta abx at home. She states that [facility] may also be able to contract with facility to provide them with abx at their cost. CM faxed info on pt and abx to [facility] f [phone]. CM updated BS RN, Ava. CM will cont to follow. Care Management Note Report : Ninoska Cuellar, Rn-Experimental Outboard Motors Mechanic Ed - 03/28/18 14:21:[address] Jones this am and he tells CM that pt is ready for discharge from his standpoint and that ID has a plan in place for IV abx. PT does have a PICC in place. Recieved VM from [facility] with [facility] p [phone] stating they are interested in pt. CM went to BS to speak with pt to discuss bed offers. CM presented bed offers and pt tells CM that she really doesn't want to go to another facility. Pt tells CM that she only wants to go to [facility], as she has been there in the past. [facility] had not make bed offer at this time. CM called and spoke with Gama in admissions at [facility] and she tells CM that per her DON, they do not believe they can meet pt's needs at this time. CM pressed for more information and Gama told CM that she would have DON call her. -CM then spoke with MADELYN Corona at [facility] and she states that pt appears too sick at this time to come to their facility. CM provided her with verbal updates, as well as faxed updates f [phone]. She states they will reevaluate now, knowing [...] pt at this time due to the $[phone] IV rocephin cost through 05/04/[address] Diaz orders. Cm to follow for ongoing d/c planning/needs. Stew Porras, RN - 03/27/18 16:25:12 [facility] ([phone]) called to make bed offer. bed offers will be presented to pt 03[facility]28[phone] Stew Porras, RN - 03/27/18 15:00:29 spoke to ID who states pt maybe ready for dc as early as 03/28. id and attending PA are recommending SNF. spoke with pt and her dtr, jazmine and informed them of suggestion from drs to dc to snf for iv abx. pt and dtr in agreement and referr[place] made via [facility] [place] following [place].... [place]. Stew Porrsa, RN - 03/27/18 10:34:34 RRS-43 + for [facility] CT consulted and per ID, infection must clear prior to any ant surgical intervention Currnelty on rocephin iv w/bld cx pending Documentation Status Complete : Yes Ninoska Cuellar, Rn-Experimental [employer]board Motors Mechanic Ed - 03/28/2018 14:27 EST documented in this encounter Plan of Treatment Not on file documented as of this encounter Visit Diagnoses Not on filedocumented in this encounter
--- OUTSIDE RECORDS SUMMARY | 2025-01-11 06:19 | XMS_ITS | Encounter Summary ---
Author Organization [employer] ([place], [place], [place], [place], [place]) Address [address] [place] [address] Care Team Providers Care Draw String Knotter Name Role Phone Unavailable Primary Care Provider Unavailabl e Encounter Details Date Type Department Care Team (Late st Contact Info) Description 03/25/2018 Transcribed Document [facility] [place] [address] [place] [address] ProviderZion MD [address] [place] [address] Social History Tobacco Use Types [...] - Historical ProviderMD - 03/25/2018 5:00 AM LITHOPRESS OPERATOR Chart Check - Review Order Profile Entered On: 03/25/2018 4:05 EST Performed On: 03/25/2018 5:00 EST by Carolina Valenzuela RN Chart Check Chart Reviewed Date and Time : 03/25/2018 4:05 EST Carolina Valenzuela RN - 03/25/2018 4:05 EST Electronically signed by Jorge Alberto [facility] Conversion Research Intern Cerner at 05/29/2022 8:34 PM CDT documented in this encounter Plan of Treatment Not on file documented as of this encounter Visit Diagnoses Not on filedocumented in this encounter
--- OUTSIDE RECORDS SUMMARY | 2025-01-11 06:19 | XMS_ITS | Encounter Summary ---
Author Organization [employer] ([place]) Address [address] [place] [address] Care Team Providers Care Clinical Laboratory Medical Director Name Role Phone Unavailable Primary Care Provider Unavailabl e Encounter Details Date Type Department Care Team (Late st Contact Info) Description 03/27/2018 Transcribed Document [facility] [place] [facility] [place] [address] ProviderZion MD [address] [place] [address] Social History Tobacco Use [...] - Historical ProviderMD - 03/27/2018 2:54 PM SEARCH ENGINE OPTIMIZER Care Management Assessment/Plan Entered On: 03/27/2018 15:00 [...]
--- OUTSIDE RECORDS SUMMARY | 2025-01-11 06:19 | XMS_ITS | Encounter Summary ---
Author Organization [employer] ([place], [place], [place], [place], [place]) Address [address] [place] [address] Care Team Providers Care Grain Manager Name Role Phone Unavailable Primary Care Provider Unavailabl e Encounter Details Date Type Department Care Team (Late st Contact Info) Description 05/07/2018 Transcribed Document [facility] [place] [facility] [place] [address] ProviderZion MD [address] [place] [address] Social History Tobacco Use Types Packs/Day [...] Zion ProviderMD - 05/07/2018 1:16 PM CDT [address] [place] [address] Patient Copy Patient Information: Name: ETHAN CRONIN Current Date: 05/07/2018 13:16:44 : 1960 Patient Address: [address] [place] [id number] Patient Attending Physician: AJAY MARCANO MD-CAR Primary Care Provider: SUJIT DAWKINS (REF)IFTIKHAR Primary Care Provider Discharge Diagnosis: Weight on Admission: 163 lb, 0 oz Comment: Follow-up Instructions: With: Address: When: AJAY MARCANO [address] [facility], [address] [place] [phone] Business ([employer] Within 2 to 3 days Comments: Follow-up [...] 11/25/2009 Document Revised: 07/05/2016 Document Reviewed: 07/30/2013 [employer] Interactive Patient Education ? 2017 [employer]. CIGARETTE SMOKING: The facts are clear, cigarette smoking will shorten your life. Smoking can cause many illnesses along the way. As a healthcare provider, we recommend that you stop smoking. Assistance with quitting is available by contacting 1-052-XYDC-NOW. This is a free resource providing counseling, [...] Be sure to sign up for the [employer] patient portal, which gives you 03/09 access to your medical information ??? including these discharge instructions ??? using your computer, smartphone, or tablet. Just go to [employer] to get started. Questions? Call . [facility] would like to thank you for allowing us to assist you with your healthcare needs. GERTRUDE Mcconnell VERONICA GAY, (or circulation representative) have received the above patient education materials/instructions and have verbalized understanding: Patient Signature _ Date/Time Patient Cotton Dispatcher Signature (if needed) Date/Time Clinician/Hospital Cotton Dispatcher Signature (if needed) Date/Time Electronically signed by Jorge Alberto, [facility] Conversion Sales Associate Cerner at 05/29/2022 8:56 PM CDT documented in this encounter Plan of Treatment Not on file documented as of this encounter Visit Diagnoses Not on filedocumented in this encounter
--- OUTSIDE RECORDS SUMMARY | 2025-01-11 06:19 | XMS_ITS | Encounter Summary ---
Author Organization [employer] ([place], [place], [place], [place], [place]) Address [address] [place] [address] Care Team Providers Care Bumboater Name Role Phone Unavailable Primary Care Provider Unavailabl e Encounter Details Date Type Department Care Team (Late st Contact Info) Description 03/25/2018 Transcribed Document [facility] [place] [address] [place] [address] ProviderZion MD [address] [place], [place] [phone] Social History Tobacco Use Types Packs/Day Years Used Date Smoking Tobacco: Never Assessed Comments Unknown Sex and Gender Information Value Date Recorded Sex Assigned at Not on file Legal Sex Female 4:39 PM CDT Gender Identity Not on file Sexual Orientation Not on file documented as of this encounter Miscellaneous Notes * [employer]ner Conversion Note - Historical ProviderMD - 03/25/2018 2:00 AM CONCESSION WORKER Ell Tutor Details Entered On: 03/25/2018 4:05 EST Performed [...]
--- OUTSIDE RECORDS SUMMARY | 2025-01-11 06:19 | XMS_ITS | Encounter Summary ---
Author Organization [employer] ([place], [place], [place], [place], [place]) Address [address] [place] [address] Care Team Providers Care Manager Child Name Role Phone Unavailable Primary Care Provider Unavailabl e Encounter Details Date Type Department Care Team (Late st Contact Info) Description 03/26/2018 Transcribed Document [facility] [place] [address] [place] [address] ProviderZion MD [address] [place] [address] Social History Tobacco Use Types Packs/Day Years Used Date Smoking Tobacco: Never Assessed Comments Unknown Sex and Gender Information Value Date Recorded Sex Assigned at Not on file Legal Sex Female 4:39 PM CDT Gender Identity Not on file Sexual Orientation Not on file documented as of this encounter Miscellaneous Notes * [employer]ner Conversion Note - Historical ProviderMD - 03/26/2018 10:40 AM PRIVACY ATTORNEY Patient: ETHAN LOREDO Age: 57 Years [...]
--- OUTSIDE RECORDS SUMMARY | 2025-01-11 06:19 | XMS_ITS | Clinical Summary ---
Author Organization [facility] Address [facility] [place] [address] Care Team Providers Care Chemist Assistant Name Role Phone Pcp, No Primary Care Provider [phone] Source Comments This information has been disclosed [...] therelease of HIV test results or diagnoses. [id number] Allergies No known active allergies Medications [...] drink = 0.6 oz pur e alcohol) [facility] Utilities Answer Date Recorded In the past 12 months has e [employer], gas, oil, or water [employer] threatened to shut off services in your [...] living in a assisted (including now)? No 03/05/2024 Comments Unknown Sex [...] - 33 mmol/L 03/09/2024 4:11 AM EST [facility] Anion Gap 10 3 - 16 [...] Organization Address [facility] Co de Phone Number [facility] [address] [facility] * Protein / creatinine ratio, urine (03/07/2024 11:26 PM EST) Creatinine, Urine 28.30 mg/dL 03/07/2024 11:52 PM EST [facility] Comment:Reference range not established for this test. Total Protein, Ur 52 mg/dL 03/07/2024 11:52 PM EST [facility] Comment:Reference range not established for this test. Prot/Creat Ratio, Ur 1.84 ratio 03/07/2024 11:52 PM EST [facility] Urine 03/07/2024 11:2 6 PM EST 03/07/2024 11:36 PM EST Tate Castro MD URINE ORDERABLES Final R esult Performing Organization Address [facility] Co de Phone Number [facility] [address] * (ABNORMAL) Thyroid Function Pala (03/06/2024 1:44 PM EST) TSH 6.15(H) 0.45 - 4.12 uIU/mL 03/06/2024 2:33 PM EST [facility] Serum 03/06/2024 1:44 PM EST 03/06/2024 1:50 PM EST us Angelo Chaudhry CNP LAB BLOOD ORDERABLES Final Result Performing Organization Address [facility] Co de Phone Number [facility] [address] * (ABNORMAL) Hemoglobin A1c (03/06/2024 5:42 AM EST) Hemoglobin A1C 6.4(H) 4.0 - 5.6 % 03/06/2024 1:13 PM EST [facility] Comment: Hemoglobin A1c Interpretation [...] ORDERABLES Bindu l Result Performing Organization Address City/[facility] Co de Phone Number [facility] [address] from Last 3 Months or Most Recently Relevant to Health Maintenance Insurance [employer]IC[employer] Advance Directives For more information, please contact: [phone] Documents on File Type Date Recorded Patient Orthotic Assistant Expl anation Durable Power of Telecommunication Operator - scan 03/11/2024 * Full Code (Latest Code Status on File) Date Activated Date Inactivated Comments 03/05/2024 10:20 PM 03/09/2024 11:04 PM Care Teams Chemist Assistant Relationship Specialty Start Date End Date Pcp, No [address] [place], [place] [phone] PCP - General 03/05/24
--- OUTSIDE RECORDS SUMMARY | 2025-01-11 06:19 | XMS_ITS | Encounter Summary ---
Author Organization [employer] ([place], [place], [place], [place], [place]) Address [address] [place] [address] Care Team Providers Care Chemistry Instructor Name Role Phone Unavailable Primary Care Provider Unavailabl e Encounter Details Date Type Department Care Team (Late st Contact Info) Description 03/25/2018 Transcribed Document [facility] Family Medicine [facility] [place] [address] ProviderZion MD [address] [place] [phone] Social History Tobacco Use Types Packs/Day Years Used Date Smoking Tobacco: Never Assessed Comments Unknown Sex and Gender Information Value Date Recorded Sex Assigned at Not on file Legal Sex Female 4:39 PM CDT Gender Identity Not on file Sexual Orientation Not on file documented as of this encounter Miscellaneous Notes * Cerner Conversion Note - Historical ProviderMD - 03/25/2018 1:44 PM CATALYST IMPREGNATOR Patient: ETHAN LOREDO Age: 57 Years Sex: [...] underlying sinus rhythm. 2. Biventricular internal cardioverter-defibrillator [employer], this device was reprogrammed, the values as [...] Electronically signed by Jorge Alberto, [employer] Conversion Fiber Locking Supervisor Cerner at 05/29/2022 8:29 PM CDT documented in this encounter Plan of Treatment Not on file documented as of this encounter Visit Diagnoses Not on filedocumented in this encounter
--- OUTSIDE RECORDS SUMMARY | 2025-01-11 06:19 | XMS_ITS | Encounter Summary ---
Author Organization [employer] ([place], [place], [place], [place], [place]) Address [address] [place] [address] Care Team Providers Care Business Banking Officer Name Role Phone Unavailable Primary Care Provider Unavailabl e Encounter Details Date Type Department Care Team (Late st Contact Info) Description 03/27/2018 Transcribed Document [facility] [place] [facility] [place] [address] ProviderZion MD [address] [place] [address] [phone] Social History Tobacco Use Types Packs/Day Years Used Date Smoking Tobacco: Never Assessed Comments Unknown Sex and Gender Information Value Date Recorded Sex Assigned at Not on file Legal Sex Female 4:39 PM CDT Gender Identity Not on file Sexual Orientation Not on file documented as of this encounter Miscellaneous Notes * Cerner Conversion Note - Zion Alonso MD - 03/27/2018 9:26 AM PASTRY DECORATOR Patient: ETHAN CRONIN Age: 57 years Sex: Female : 1960 Associated Diagnoses: None Author: AJAY MARCANO MD-CAR Basic Information PCP: Unknown Rotary Drum Dyer: Chief Complaint 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 Social & Psychosocial Habits Tobacco 02/17/2015 Tobacco Use Within Last Twelve Months Cigarettes Smoking Status Current every day smoker Years of Tobacco Use 40 Packs/Tins Daily 1 Smoking Cessation Information Provided Yes Past Medical History: Active CAD - Coronary artery disease (5118360796) Cardiomyopathy (382729205) HLD - Hyperlipidemia (138970091) HTN - Hypertension (0617932058) Resolved COPD - Chronic obstructive pulmonary disease (144838017): Resolved. Family History: No family history items have been selected or recorded. Procedure history: CABG in 2016 at 55 Years. MAZE in 2016 at 55 Years. Cholecystectomy; (52229). Comments: 02/17/2015 11:52 - SUSI BOWMAN RN [...] of motion, Normal strength. Integumentary: Warm, Dry, [place]. Neurologic: Alert, Oriented. Psychiatric: Cooperative, Appropriate mood & affect. Review / Management MAR 27 07:36 136 104 H 33 / H 137 4.0 L 20 0.90 \ Cardiac Markers (Current Encounter/Past 24 Hours) No Cardiac Marker Results Found (Past 24 Hours) Blood Gases (Current Encounter/Past 24 Hours) No Blood Gas Results Found (Past 24 Hours) Radiology Results (Last 48 hours) [id number] -- 03/23/2018 17:08 CT Abdomen Pelvis WO [...]
--- OUTSIDE RECORDS SUMMARY | 2025-01-11 06:19 | XMS_ITS | Encounter Summary ---
Author Organization [employer] ([place], [place], [place], [place], [place]) Address [address] [place] [address] Care Team Providers Care Inspector Finishing Name Role Phone Unavailable Primary Care Provider Unavailabl e Encounter Details Date Type Department Care Team (Late st Contact Info) Description 03/27/2018 Transcribed Document [facility] [address] [place] [address] ProviderZion MD [address] [place] [address] Social History Tobacco Use Types [...] - Historical ProviderMD - 03/27/2018 2:00 AM FILAMENT TESTER Pantry Attendant Details Entered On: 03/27/2018 5:00 EST Performed [...]
--- OUTSIDE RECORDS SUMMARY | 2025-01-11 06:19 | XMS_ITS | Encounter Summary ---
Author Organization [employer] ([place], [place], [place], [place], [place]) Address [address] [place] [address] Care Team Providers Care Organizational Development Director Name Role Phone Unavailable Primary Care Provider Unavailabl e Encounter Details Date Type Department Care Team (Late st Contact Info) Description 03/27/2018 Transcribed Document [facility] [place] [place] [facility] [place] [address] ProviderZion MD [address] [place] [address] Social History Tobacco Use Types [...] - Historical ProviderMD - 03/27/2018 4:23 PM HEAD OF TALENT MANAGEMENT Care Management Assessment/Plan Entered On: 03/27/2018 16:25 EST Performed On: 03/27/2018 16:23 EST by Stew Porras RN Care Management Note Anticipated Discharge Date : 04/03/2018 14:00 EST Care Management Note : blayne [facility] ( ex 108) called to make bed offer. bed offers will be presented to pt 03/28. dtr will provide transportationashamarillo [phone] Care Management Note Report : Stew Porras [...] cx pending Documentation Status Complete : Yes Stwe Porras RN - 03/27/2018 16:23 EST Electronically signed by [facility], [facility] Conversion Social Insurance Administrator Cerner at 05/29/2022 8:47 PM CDT documented in this encounter Plan of Treatment Not on file documented as of this encounter Visit Diagnoses Not on filedocumented in this encounter
--- OUTSIDE RECORDS SUMMARY | 2025-01-11 06:19 | XMS_ITS | Encounter Summary ---
Author Organization [employer] ([place], [place], [place], [place], [place]) Address [address] [place] [address] Care Team Providers Care Garment Manufacturing Supervisor Name Role Phone Unavailable Primary Care Provider Unavailabl e Encounter Details Date Type Department Care Team (Late st Contact Info) Description 05/07/2018 Transcribed Document [facility] Family [place] [facility] [place] [address] ProviderZion MD [address] [place] [address] Social History Tobacco Use Types Packs/Day [...] Zion ProviderMD - 05/07/2018 4:09 PM CDT [address] [place] [address] Patient Copy Patient Information: Name: ETHAN CRONIN Current Date: 05/07/2018 16:09:51 : 1960 Patient Address: [address] [place] [id number] Patient Attending Physician: AJAY MARCANO MD-GUICHO Primary Care Provider: SUJIT DAWKINS (REF)IFTIKHAR Primary Care Provider Discharge Diagnosis: Weight on Admission: 163 lb, 0 oz Comment: Follow-up Instructions: With: Address: When: JOHN TSAI [address] [facility] [place] [address] Ellie1) 11:45 AM With: Address: Jenn: AJAY MARCANO [address] [facility], [address] [place] [address] [employer] (1) Within 2 to 3 days Comments: [...] you are awake and alert. ??? Take otmg-riv-pbvokzz and prescription medicines only as told by [...] 11/18/2013 Document Revised: 07/02/2016 Document Reviewed: 05/19/2016 [employer] Interactive Patient Education ? 2017 [employer] Transesophageal Echocardiogram Transesophageal echocardiography (BROCK) is [...] 11/25/2009 Document Revised: 07/05/2016 Document Reviewed: 07/30/2013 [employer] Interactive Patient Education ? 2017 [employer] CIGARETTE SMOKING: The facts are clear, cigarette smoking will shorten your life. Smoking can cause many illnesses along the way. As a healthcare provider, we recommend that you stop smoking. Assistance with quitting is available by contacting 2-444-HVYQ-NOW. This is a free resource providing counseling, [...] Be sure to sign up for the [employer] patient portal, which gives you 03/09 access to your medical information ??? including these discharge instructions ??? using your computer, smartphone, or tablet. Just go to [employer] to get started. Questions? Call . [facility] would like to thank you for allowing us to assist you with your healthcare needs. GERTRUDE Mcconnell VERONICA GAY, (or outbound call center representative) have received the above patient education materials/instructions and have verbalized understanding: Patient Signature _ Date/Time Patient Office Assistance Signature (if needed) Date/Time Clinician/Hospital Office Assistance Signature (if needed) Date/Time Electronically signed by Interface, [facility] Conversion High Risk Ob Cerner at 05/29/2022 8:55 PM CDT documented in this encounter Plan of Treatment Not on file documented as of this encounter Visit Diagnoses Not on filedocumented in this encounter
--- OUTSIDE RECORDS SUMMARY | 2025-01-11 06:19 | XMS_ITS | Encounter Summary ---
Author Organization [employer] ([place], [place], [place], [place], [place]) Address [address] [place] [address] Care Team Providers Care Assistant Professor Surgical Technology Name Role Phone Unavailable Primary Care Provider Unavailabl e Encounter Details Date Type Department Care Team (Late st Contact Info) Description 03/27/2018 Transcribed Document [facility] Family Medicine [facility] [place] [address] ProviderZion MD [address] [place] [phone] Social History Tobacco Use Types Packs/Day Years Used Date Smoking Tobacco: Never Assessed Comments Unknown Sex and Gender Information Value Date Recorded Sex Assigned at Not on file Legal Sex Female 4:39 PM CDT Gender Identity Not on file Sexual Orientation Not on file documented as of this encounter Miscellaneous Notes * Cerner Conversion Note - Zion Alonso MD - 03/27/2018 9:17 AM PHOTOENGRAVING PROOFER APPRENTICE Patient: ETHAN CRONIN Age: 57 years Sex: Female : 1960 Associated Diagnoses: None Author: CARROLL HIGH MD-INF Basic Information CC: Sepsis bacteremia 03/19/18 4/4 bottles for Group b strep ([facility]), mitral prosthetic valve endocarditis History of Present Illness 57-year-old white female with history of bladder cancer, atrial flutter, pacemaker placement 2016, hypertension, DM2, COPD, pancreatitis, who recently had blood cultures obtained at [facility] on 03/19/18 for fever which were positive in 4 out of 4 bottles for group B Streptococcus. Patient was to start IV antibiotics but was found to have bradycardia and was admitted to [facility] on 03/23/17. I was consulted on 03/25/17. The patient had been started on vancomycin and Rocephin. Urine culture obtained at [facility] was positive for multiple bacteria [...] cefTRIAXone (Rocephin) - 2 Gram, IV Piggyback, [id number], infuse over 30 Minute(s), Routine Anticoagulant heparin [...] Normal strength, No tenderness. Integumentary: Warm, Dry, [place], No pallor, No rash, Left chest wall [...] 10) Troponin <0.015 (FEB 10) , ACC: [id number] ORDER: Culture Blood DATE: 03/23/2018 17:49 SOURCE: Blood SITE: Reports Pre 03/26/2018 23:01 No growth at 3 days. Pre 03/25/2018 23:01 No growth at 2 days. Pre 03/24/2018 23:02 No growth at 1 day. Pre 03/24/2018 16:03 Culture less than 24 Hrs old == ACC: [id number] ORDER: Culture Blood DATE: 03/23/2018 17:49 SOURCE: [...] of 4 blood culture bottles positive at [facility] (spoke to Maurice Spencer, at [facility]). BROCK consistent with mitral valve endocarditis, [...] and discussed with Dr. Perez's service, cardiology. manager general: Please arrange for outpatient IV antibiotics with Rocephin 2 g IV every 12 hours until 05/04/18. Follow CBC, CMP, CRP weekly while on IV antibiotics. Fax orders to [phone], and call [phone] with final arrangements. Arrange for follow-up with me in 2 weeks post discharge. documented in this encounter Plan of Treatment Not on file documented as of this encounter Visit Diagnoses Not on filedocumented in this encounter
--- OUTSIDE RECORDS SUMMARY | 2025-01-11 06:19 | XMS_ITS | Encounter Summary ---
Author Organization [employer] ([place], [place], [place], [place], [place]) Address [address] [place] [address] Care Team Providers Care Rehabilitation Construction Specialist Name Role Phone Unavailable Primary Care Provider Unavailabl e Encounter Details Date Type Department Care Team (Late st Contact Info) Description 03/27/2018 Transcribed Document [facility] Family Medicine [address] [place] [address] ProviderZion MD [address] [place] [address] Social History Tobacco Use Types [...] - Historical ProviderMD - 03/27/2018 10:33 AM RETAIL SPECIALIST Care Management Assessment/Plan Entered On: 03/27/2018 10:34 [...] Patient History Note Report : DEEPA GALDAMEZ, Ship Steward - 03/26/18 17:47:16 Talked w/ this 57 yr old W F transferred here from [facility] w/ bradycardia, positive blood cultures/strep B sepsis bactremia. PMH includes: bladder cancer, CAD s/p CABG, MVR, PPM plcmt (for which pt has had no F/U), pancreatitis, , COPD, DM, HTN, HLD, depression and anxiety. Pt underwent BROCK today due to concern for possible infected pacemaker (report not in yet). She is currently on 2gm IV rocephin, which [facility] says she will need until 04/20/18. Pt lives w/ her estranged spouse at [facility] address, claims she is indep w/ [...]
--- OUTSIDE RECORDS SUMMARY | 2025-01-11 06:19 | XMS_ITS | Encounter Summary ---
Author Organization [employer] ([place], [place], [place], [place], [place]) Address [address] [place] [address] Care Team Providers Care Airline Manager Name Role Phone Unavailable Primary Care Provider Unavailabl e Encounter Details Date Type Department Care Team (Late st Contact Info) Description 03/25/2018 Transcribed Document [facility] [place] [address] [place] [address] ProviderZion MD [address] [place], [place] [phone] Social History Tobacco Use Types Packs/Day Years Used Date Smoking Tobacco: Never Assessed Comments Unknown Sex and Gender Information Value Date Recorded Sex Assigned at Not on file Legal Sex Female 4:39 PM CDT Gender Identity Not on file Sexual Orientation Not on file documented as of this encounter Miscellaneous Notes * Cerner Conversion Note - Zion Alonso MD - 03/25/2018 7:28 AM DENTURE PROCESSOR DATE OF CONSULTATION: 03/24/2018 ELECTROPHYSIOLOGY CONSULTATION REFERRING HOSPITALIST: Omar Neslon M.D. CONSULTING PHONOGRAPH NEEDLE TIP MAKER: Jorge Hawkins MD REASON FOR CONSULTATION: Bradycardia. [...] seen by Dr. Beard in the [facility]. The patient does have a history of [...] count of 379. [place] 1.8[place] [address]. Liver enzymes normal. EKG shows biventricular paced [...] CC1: Jorge Hawkins M.D. CC2: Dr. Beard; [place], [place] Electronically signed by Jorge Alberto [facility] Conversion Technology Methodology Consultant Cerner at 05/29/2022 8:43 PM CDT documented in this encounter Plan of Treatment Not on file documented as of this encounter Visit Diagnoses Not on filedocumented in this encounter
--- OUTSIDE RECORDS SUMMARY | 2025-01-11 06:20 | XMS_ITS | Encounter Summary ---
Author Organization [employer] ([place], [place], [place], [place], [place]) Address [address] [place] [address] Care Team Providers Care Bed Spring Maker Name Role Phone Unavailable Primary Care Provider Unavailabl e Encounter Details Date Type Department Care Team (Late st Contact Info) Description 05/07/2018 Transcribed Document [facility] [place] [address] [place] [address] ProviderZion MD [address] [place] [address] Social History Tobacco Use Types [...]
--- OUTSIDE RECORDS SUMMARY | 2025-01-11 06:20 | XMS_ITS | Encounter Summary ---
Author Organization [employer] ([place], [place], [place], [place], [place]) Address [address] [place] [address] Care Team Providers Care Work Ticket Distributor Name Role Phone Unavailable Primary Care Provider Unavailabl e Encounter Details Date Type Department Care Team (Late st Contact Info) Description 03/23/2018 Transcribed Document [facility] [place] [address] [place] [address] ProviderZion MD [address] [place] [address] Social History Tobacco Use Types [...] - Historical ProviderMD - 03/23/2018 5:16 PM ACCOUNT UNDERWRITER Event Note Entered On: 03/23/2018 17:17 EST Performed On: 03/23/2018 17:16 EST by Demetri Arrington, Rn Event Note Event Date/Time : 03/23/2018 17:16 EST Description of Event : patient to rm # [id number] Kristen Nelson notified Demetri Arrington, Rn - 03/23/2018 17:16 EST Electronically signed by Jorge Alberto [facility] Conversion Cold Mill Operator Cerner at 05/29/2022 8:41 PM CDT documented in this encounter Plan of Treatment Not on file documented as of this encounter Visit Diagnoses Not on filedocumented in this encounter
--- OUTSIDE RECORDS SUMMARY | 2025-01-11 06:20 | XMS_ITS | Encounter Summary ---
Author Organization [employer] ([place], [place], [place], [place], [place]) Address [address] [place] [address] Care Team Providers Care Government Instructor Name Role Phone Unavailable Primary Care Provider Unavailabl e Encounter Details Date Type Department Care Team (Late st Contact Info) Description 03/29/2018 Transcribed Document [facility] Family Medicine [address] [place] [address] ProviderZion MD [address] [place], [place] [id number] Social History Tobacco Use Types Packs/Day Years Used Date Smoking Tobacco: Never Assessed Comments Unknown Sex and Gender Information Value Date Recorded Sex Assigned at Not on file Legal Sex Female 4:39 PM CDT Gender Identity Not on file Sexual Orientation Not on file documented as of this encounter Miscellaneous Notes * Cerner Conversion Note - Historical ProviderMD - 03/29/2018 1:20 PM NATURAL RESOURCES EXTENSION EDUCATOR Care Management Assessment/Plan Entered On: 03/29/2018 13:22 EST Performed On: 03/29/2018 13:20 EST by Odalys Bush Rn-Dashboard DeveloperCat Scan Technologist Note Anticipated Discharge Date : 03/30/2018 14:00 EST Care Management Note : Confirmed with [facility] that patient can transfer today [phone]; [phone]. Spoke with patient's daughter Jazmine [phone] who plans to transport[address] Dr. Hamilton advised and dishcarge pharmacy aware. Patient should be ready to transport by 15:00. Care Management Note Report : Ninoska Cuellar, Rn-Dashboard Developer Ed - 03/28/18 20:23:22 CM faxed orders to [facility] for IV abx f [phone] per orders. CM will need to call [facility] to notify them of final d/c plan per MD orders p [phone]. CM to follow for ongoing d/c planning/needs. Ninoska Cuellar, Rn-Dashboard Developer Ed - 03/28/18 18:12:15 CM recieved call from Gama at [facility] stating they can take pt at their facility, but not until Saturday, as they now have an agreement with [facility]. CM then spoke with Edie from [facility] and she again confirms they can accept pt at their facility tomorrow. CM updated pt and now pt is agreeable to go to [facility]. She also gave CM permission to speak with Jazmine joshi by phone p [phone]. CM spoke with Jazmine and she is [...] follow for ongoing d/c planning/needs. Ninoska Cuellar, Rn-Dashboard Developer Ed - 03/28/18 16:01:02 [facility] Clem states home cost for Rocephin is $3.70/wk. She states they may be able to contract with SNF to provide abx at pt's cost. She asked CM to have SNF call Paulo at their office to see about arranging. CM called MADELYN Corona with [facility] and [facility]. Updated BS RNAva. CM will cont to follow. Ninoska Cuellar, Rn-Dashboard Developer Ed - 03/28/18 14:57:29 Called [facility] and spoke with Chiquita and updated her on IV abx needs. SHe will check cost and call CM back to see if bed offer is still on the table. CM left for Sheri with [facility] to update her, left requesting return phone call. CM updated pt and she appears discouraged that [facility] will not accept her as a pt. She tells CM that she is considering just going home. BLAKE also called Clem with [facility] to argueta abx at home. She states that [facility] may also be able to contract with facility to provide them with abx at their cost. CM faxed info on pt and abx to [facility] f [phone]. CM updated BS RN, Ava. CM will cont to follow. Ninoska Cuellar, Rn-Dashboard Developer Ed - 03/28/18 14:21:[address] Robert bradley and he tells CM that pt is ready for discharge from his standpoint and that ID has a plan in place for IV abx. PT does have a PICC in place. Recieved VM from [facility] with [facility] p [phone] stating they are interested in pt. CM went to BS to speak with pt to discuss bed offers. CM presented bed offers and pt tells CM that she really doesn't want to go to another facility. Pt tells CM that she only wants to go to [facility], as she has been there in the past. [facility] had not make bed offer at this time. BLAKE called and spoke with Gama in admissions at [facility] and she tells CM that per her DON, they do not believe they can meet pt's needs at this time. CM pressed for more information and Gama told CM that she would have DON call her. -CM then spoke with MADELYN Corona at [facility] and she states that pt appears too sick at this time to come to their facility. BLAKE provided her with verbal updates, as well as faxed updates f [phone]. She states they will reevaluate now, knowing [...] pt at this time due to the $9979-8343 IV rocephin cost through 05/04/[address] Diaz orders. Cm to follow for ongoing d/c planning/needs. Stew Porras, REGULO - 03/27/18 16:25:12 edie from [facility] ([phone] ex [phone]) called to make bed offer. bed offers will be presented to pt 03/28. [phone] Stew Porras, RN - 03/27/18 15:00:29 spoke [...] Documentation Status Complete : Yes Odalys Bush, Rn-Dashboard Developer - 03/29/2018 13:20 EST Electronically signed by Jorge Alberto [facility] Conversion Commercial Service Technician Cerner at 05/29/2022 8:48 PM CDT documented in this encounter Plan of Treatment Not on file documented as of this encounter Visit Diagnoses Not on filedocumented in this encounter
--- OUTSIDE RECORDS SUMMARY | 2025-01-11 06:20 | XMS_ITS | Encounter Summary ---
Author Organization [employer] ([place], [place], [place], [place], [place]) Address [address] [place] [address] Care Team Providers Care Litigation Coordinator Name Role Phone Unavailable Primary Care Provider Unavailabl e Encounter Details Date Type Department Care Team (Late st Contact Info) Description 03/23/[address] [facility] Family Medicine [address] [place] [address] ProviderZion MD [address] [place], [place] [phone] Social History Tobacco Use Types Packs/Day Years Used Date Smoking Tobacco: Never Assessed Comments Unknown Sex and Gender Information Value Date Recorded Sex Assigned at Not on file Legal Sex Female 4:39 PM CDT Gender Identity Not on file Sexual Orientation Not on file documented as of this encounter Miscellaneous Notes * Cerner Conversion Note - Zoin ProviderMD - 03/23/2018 6:37 PM LASTING MACHINE OPERATOR HAND METHOD Patient: ETHAN CRONIN Age: 57 years Sex: Female : 1960 Associated Diagnoses: None Author: Anastacia Roth, Pharm.D.-Resident HPI: 57 year old female transferred from [facility] due to bradycardia during infusion. Pt has hx of CAD, CABG/pacemaker 3 years ago, DM, HTN, and NM. Pt also has hx of bacteremia and was on antibitoics outpatient and pt cannot confirm what abx she was on. Pharmacist called [facility] and confirmed that pt did not [...] will continue to follow Jameson SummersD PGY-1 Human Services Professional [phone] documented in this encounter Plan of Treatment Not on file documented as of this encounter Visit Diagnoses Not on filedocumented in this encounter
--- OUTSIDE RECORDS SUMMARY | 2025-01-11 06:20 | XMS_ITS | Encounter Summary ---
Author Organization [employer] ([place], [place], [place], [place], [place]) Address [address] [place] [address] Care Team Providers Care Elevator Service Technician Name Role Phone Unavailable Primary Care Provider Unavailabl e Encounter Details Date Type Department Care Team (Late st Contact Info) Description 03/23/2018 Transcribed Document [facility] [address] [place] [address] ProviderZion MD [address] [place] [id number] Social History Tobacco Use Types Packs/Day Years Used Date Smoking Tobacco: Never Assessed Comments Unknown Sex and Gender Information Value Date Recorded Sex Assigned at Not on file Legal Sex Female 4:39 PM CDT Gender Identity Not on file Sexual Orientation Not on file documented as of this encounter Miscellaneous Notes * Cerner Conversion Note - Historical ProviderMD - 03/23/2018 5:54 PM DENTAL ASSOCIATE Care Management Assessment/Plan Entered On: 03/26/2018 17:47 [...] yr old W F transferred here from [facility] w/ bradycardia, positive blood cultures/strep B sepsis bactremia. PMH includes: bladder cancer, CAD s/p CABG, MVR, PPM plcmt (for which pt has had no F/U), pancreatitis, , COPD, DM, HTN, HLD, depression and anxiety. Pt underwent BROCK today due to concern for possible infected pacemaker (report not in yet). She is currently on 2gm IV rocephin, which [facility] says she will need until 04/20/18. [facility], claims she is indep w/ all activities. D/C plan pending outcome of possible pacer removal, may well be good [facility] candidate. She denies any needs now, CM will cont to follow. DEEPA GALDAMEZ, Valve Mechanic - 03/26/2018 17:36 EST Electronically signed by Vinayak Azul Conversion Concrete Finishing Machine Operator Cerner at 05/29/2022 8:54 PM CDT documented in this encounter Plan of Treatment Not on file documented as of this encounter Visit Diagnoses Not on filedocumented in this encounter
--- OUTSIDE RECORDS SUMMARY | 2025-01-11 06:20 | XMS_ITS | Clinical Summary ---
Author Organization [facility] Address [address] [place] [address] Care Team Providers Care Stem Teacher Name Role Phone Cosme Davis MD Primary Care Provider [phone] Allergies No known active allergies Medications * [...] MG EC tablet 4 Active HYDROcodone-ina taminophen (Chancellor) 5-325 MG tablet 5 Active insulin syringe-needle [...] - 11/13/2024 11:59 PM EDT Hospital Encounter [facility] Radiology [address], [address] [place] [address] Pain in pelvis Discharge Disposition: Home or Self Care 11/13/2024 11:20 AM EDT Office Visit [facility]opa[facility] Surgery [facility] Medicine [address] [place] [address] Paulo Marquis MD Pain in pelvis (Primary Dx) 11/13/2024 Travel 10/19/2024 Travel 10/18/2024 Travel 10/16/2024 Travel 10/14/2024 Travel 10/13/2024 Travel 10/12/2024 Orders Only External Location [address] [place] [address] Tito Madrid MD 10/12/2024 Orders Only External Location [address] [place] [address] Tito Madrid MD 10/12/2024 Orders Only External Location [address] [place] [address] Tito Madrid MD 10/12/2024 Travel from Last [...] in a usp (including now)? No 10/13/2024 [facility] Utilities Answer Date [...] [facility] V[facility] Lab [address] 5[address] [place] [address] 01/21/2025 2:00 PM EST Appointment [facility] [address] 5th Floor [address] [place] [address] 01/21/2025 2:40 PM EST Office Visit [facility] [address] 5th Floor [address] [place] [address] Jose Rosario MD [address] [facility] [address] [place] [address] Health Maintenance Due Date Last Done Comments [facility]-Depression Screening 1960 [facility]-Medicare Annual Wellness (AWV) 1960 [facility]-/Child/Adol SDOH Screenings 1960 [id number]-80 Vaccine (#1) 06/04/1967 Diabetes: Dental Exam 1972 [...] HORMONE (ACTH) Routine 10/16/2024 8:11 AM EDT [facility], E/M 30-74 MINUTES Routine 10/16/2024 [...] EDT CORTISOL Routine 10/15/2024 8:29 AM EDT [place] [facility], E/M 30-74 MINUTES Routine 10/15/2024 [...] KNOWN SYPHILIS) Routine 10/14/2024 9:44 AM EDT [place] [facility], E/M 30-74 MINUTES Routine 10/14/2024 8:59 AM EDT Closed fracture of ramus of right pubis, initial encounter ([facility]) Shock ([facility]) XR CHEST 1 VIEW STAT 10/14/2024 [...] Routine 10/13/2024 9:26 AM EDT Shock (CMS/HCC) TN INSERT NON-TUNNEL CV CATH Routine 10/13/2024 9:26 AM EDT Shock (CMS/HCC) XR CHEST 1 VIEW STAT 10/13/2024 9:25 AM EDT HC INSERT CATH,ART,PERCUT,SHORTTERM Routine 10/13/2024 9:09 AM EDT Shock (CMS/HCC) TN INSERT CATH,ART,PERCUT,SHORTTERM Routine 10/13/2024 9:09 AM EDT [...] of87 resultswithin the time period is included. [facility] POCT Glucose 251(H) 74 - 99 mg/dL [...] Comment 10/30/2024 12:01 PM EDT HEALTHCARE LAB Research Environmental Engineer ID Jessika Schneider [id number] 12:01 PM EDT HEALTHCARE LAB Device ID [id number] 10/30/2024 12:01 PM EDT HEALTHCARE LAB Specimen Type POC Capillary 10/30/2024 12:01 PM EDT [facility]ALTH[facility]ARE [facility] Blood Capillary blood specimen / Unknown 10/30/2024 11:58 AM EDT 10/30/2024 12:01 PM EDT us Tiffany Patten DO LAB POINT OF CARE TE ST DOCKED DEVICE UNSOLICITED RESULTS Final Result Performing Organization Address City/State/[facility] Co de Phone Number HEALTHCARE LAB [address] [place] [address] * (ABNORMAL) CBC W/O Differential (10/28/2024 3:43 AM EDT) Only the most recent of4 resultswithin the time period is included. [facility] WBC Count 9.69 3.70 - 10.30 10*3/uL LAB HEMATOLOGY METHOD 10/28/2024 4:21 AM EDT [facility] RBC Count 2.95(L) 3.90 - 5.20 10*6/uL LAB HEMATOLOGY METHOD 10/28/2024 4:21 AM EDT [facility] HGB 8.3(L) 11.2 - 15.7 g/dL LAB HEMATOLOGY METHOD 10/28/2024 4:21 AM EDT [facility] HCT 27.0(L) 34.0 - 45.0 % LAB HEMATOLOGY METHOD 10/28/2024 4:21 AM EDT [facility] Platelet Count 363 155 - 369 10*3/uL LAB HEMATOLOGY METHOD 10/28/2024 4:21 AM EDT [facility] MCV 92 79 - 98 fL LAB HEMATOLOGY METHOD 10/28/2024 4:21 AM EDT [facility] MCH 28.1 26.0 - 32.0 pg LAB HEMATOLOGY METHOD 10/28/2024 4:21 AM EDT [facility] MCHC 30.7 30.7 - 35.5 g/dL LAB HEMATOLOGY METHOD 10/28/2024 4:21 AM EDT [facility] RDW 24.8(H) 11.5 - 14.5 % LAB HEMATOLOGY METHOD 10/28/2024 4:21 AM EDT [facility] MPV 11.9 8.8 - 12.5 fL LAB HEMATOLOGY METHOD 10/28/2024 4:21 AM EDT [facility] nRBC 0.0 <=0.0 per 100 WBCs LAB HEMATOLOGY METHOD 10/28/2024 4:21 AM EDT [facility] Blood Venous blood specimen / Unknown Venipuncture / Unknown 10/28/2024 3:43 AM EDT 10/28/2024 4:13 AM EDT Tiffany Patten LAB BLOOD ORDERABLES Final Re sult Performing Organization Address City/[facility] Co de Phone Number HEALTHCARE LAB [address] [place] [address] * Magnesium, Plasma (10/28/2024 3:43 AM EDT) Only the most recent of5 resultswithin the time period is included. Magnesium, Plasma 2.2 1.9 - 2.4 mg/dL 10/28/2024 4:42 AM EDT HEALTHCARE LAB Blood Venous blood specimen / Unknown Venipuncture / Unknown 10/28/2024 3:43 AM EDT 10/28/2024 4:13 AM EDT Tiffany Patten DO LAB BLOOD ORDERABLES Final Re sult [facility]ARE [facility] [address] [place] [address] * (ABNORMAL) Renal Function Panel, Plasma (10/28/2024 3:43 AM EDT) [facility] Glucose, Plasma 276(H) 74 - 99 mg/dL 10/28/2024 4:42 AM EDT [facility] BUN, Plasma 89(H) 8 - 23 mg/dL 10/28/2024 4:42 AM EDT [facility] Creatinine, Plasma 2.19(H) 0.60 - 1.10 mg/dL 10/28/2024 4:42 AM EDT [facility] BUN/Creatinine Ratio 41 10/28/2024 4:42 AM EDT [facility] Sodium, Plasma 138 136 - 145 mmol/L 10/28/2024 4:42 AM EDT [facility] Potassium, Plasma 5.1(H) 3.6 - 4.9 mmol/L 10/28/2024 4:42 AM EDT [facility] Chloride, Plasma 102 97 - 107 mmol/L 10/28/2024 4:42 AM EDT [facility] CO2, Plasma 25 22 - 29 mmol/L 10/28/2024 4:42 AM EDT [facility] Anion Gap 11 6 - 16 mmol/L 10/28/2024 4:42 AM EDT [facility] Total Calcium, Plasma 8.9 8.9 - 10.2 mg/dL 10/28/2024 4:42 AM EDT [facility] Phosphorus, Plasma 2.8 2.5 - 4.5 mg/dL 10/28/2024 4:42 AM EDT [facility] Albumin, Plasma 3.0(L) 3.5 - 5.2 g/dL 10/28/2024 4:42 AM EDT [facility] eGFRcr 24.9 mL/min/1.7 3m*2 10/28/2024 4:42 AM EDT [facility] Comment:Reported eGFRcr in m L/min/1.73m2 is based the CKD-EPI 2020 equation that does not use a race coefficient. Blood Venous blood specimen / Unknown Venipuncture / Unknown 10/28/2024 3:43 AM EDT 10/28/2024 4:13 AM EDT Tiffany Patten DO LAB BLOOD ORDERABLES Final Re sult [facility] [address] [place] [address] * (ABNORMAL) CBC and differential (10/26/2024 9:19 AM EDT) Only the most recent of11 resultswithin the time period is included. WBC Count 9.12 3.70 - 10.30 10*3/uL LAB HEMATOLOGY METHOD 10/26/2024 9:25 AM EDT [facility] RBC Count 3.03(L) 3.90 - 5.20 10*6/uL LAB HEMATOLOGY METHOD 10/26/2024 9:25 AM EDT [facility] HGB 8.5(L) 11.2 - 15.7 g/dL LAB HEMATOLOGY METHOD 10/26/2024 9:25 AM EDT [facility] HCT 27.1(L) 34.0 - 45.0 % LAB HEMATOLOGY METHOD 10/26/2024 9:25 AM EDT [facility] Platelet Count 331 155 - 369 10*3/uL LAB HEMATOLOGY METHOD 10/26/2024 9:25 AM EDT [facility] MCV 89 79 - 98 fL LAB HEMATOLOGY METHOD 10/26/2024 9:25 AM EDT [facility] MCH 28.1 26.0 - 32.0 pg LAB HEMATOLOGY METHOD 10/26/2024 9:25 AM EDT [facility] MCHC 31.4 30.7 - 35.5 g/dL LAB HEMATOLOGY METHOD 10/26/2024 9:25 AM EDT [facility] RDW 24.6(H) 11.5 - 14.5 % LAB HEMATOLOGY METHOD 10/26/2024 9:25 AM EDT [facility] MPV 11.4 8.8 - 12.5 fL LAB HEMATOLOGY METHOD 10/26/2024 9:25 AM EDT [facility] nRBC 0.0 <=0.0 per 100 WBCs LAB HEMATOLOGY METHOD 10/26/2024 9:25 AM EDT [facility] Differential Type Automated LAB HEMATOLOGY METHOD 10/26/2024 9:25 AM EDT [facility] Neutrophils % 76 % LAB HEMATOLOGY METHOD 10/26/2024 9:25 AM EDT [facility]ALTH[facility]ARE LAB Lymphocytes % 13 % LAB HEMATOLOGY METHOD 10/26/2024 9:25 AM EDT [facility] Monocytes % 7 % LAB HEMATOLOGY METHOD 10/26/2024 9:25 AM EDT [facility]ALTHCARE LAB Eosinophils % 3 % LAB HEMATOLOGY METHOD 10/26/2024 9:25 AM EDT [facility] Basophils % 1 % LAB HEMATOLOGY METHOD 10/26/2024 9:25 AM EDT [facility] Immature Granulocytes % 0 % LAB HEMATOLOGY METHOD 10/26/2024 9:25 AM EDT [facility] Neutrophils Absolute 6.90(H) 1.60 - 6.10 10*3/uL LAB HEMATOLOGY METHOD 10/26/2024 9:25 AM EDT HEALTHCARE LAB Lymphocytes Absolute 1.22 1.20 - 3.90 10*3/uL LAB HEMATOLOGY METHOD 10/26/2024 9:25 AM EDT [facility] Monocytes Absolute 0.60 0.30 - 0.90 10*3/uL LAB HEMATOLOGY METHOD 10/26/2024 9:25 AM EDT [facility] Eosinophils Absolute 0.31 0.00 - 0.50 10*3/uL LAB HEMATOLOGY METHOD 10/26/2024 9:25 AM EDT [facility] Basophils Absolute 0.05 0.00 - 0.10 10*3/uL LAB HEMATOLOGY METHOD 10/26/2024 9:25 AM EDT [facility] Immature Granulocytes Absolute 0.04 0.00 - 0.06 10*3/uL LAB HEMATOLOGY METHOD 10/26/2024 9:25 AM EDT [facility] Blood Venous blood specimen / Unknown Venipuncture / Unknown 10/26/2024 9:19 AM EDT 10/26/2024 9:23 AM EDT Narrative HEALTHCARE LAB - 10/26/2024 9:25 AM EDT Therapeutic decision making should be based on absolute values, rather than percentages. us Yuriy Lockett MD LAB BLOOD ORDERABLES Final Resul t [facility] [address] [place] [address] * (ABNORMAL) Basic metabolic panel (10/26/2024 9:19 AM EDT) Only the most recent of10 resultswithin the time period is included. Glucose, Plasma 244(H) 74 - 99 mg/dL 10/26/2024 9:49 AM EDT [facility] BUN, Plasma 76(H) 8 - 23 mg/dL 10/26/2024 9:49 AM EDT [facility] Creatinine, Plasma 1.97(H) 0.60 - 1.10 mg/dL 10/26/2024 9:49 AM EDT [facility] BUN/Creatinine Ratio 39 10/26/2024 9:49 AM EDT [facility] Sodium, Plasma 138 136 - 145 mmol/L 10/26/2024 9:49 AM EDT [facility] Potassium, Plasma 5.0(H) 3.6 - 4.9 mmol/L 10/26/2024 9:49 AM EDT [facility] Chloride, Plasma 102 97 - 107 mmol/L 10/26/2024 9:49 AM EDT [facility] CO2, Plasma 25 22 - 29 mmol/L 10/26/2024 9:49 AM EDT [facility] Anion Gap 11 6 - 16 mmol/L 10/26/2024 9:49 AM EDT [facility] Total Calcium, Plasma 8.7(L) 8.9 - 10.2 mg/dL 10/26/2024 9:49 AM EDT [facility] eGFRcr 28.3 mL/min/1.7 3m*2 10/26/2024 9:49 AM EDT [facility] Comment:Reported eGFRcr in m L/min/1.73m2 is based the CKD-EPI 2020 equation that does not use a race coefficient. Blood Venous blood specimen / Unknown Venipuncture / Unknown 10/26/2024 9:19 AM EDT 10/26/2024 9:23 AM EDT us Yuriy Lockett MD LAB BLOOD ORDERABLES Final Resul t [facility] [address] [place] [address] * (ABNORMAL) Hemoglobin and Hematocrit, Blood (10/25/2024 12:23 PM EDT) Only the most recent of11 resultswithin the time period is included. HGB 8.1(L) 11.2 - 15.7 g/dL LAB HEMATOLOGY METHOD 10/25/2024 12:30 PM EDT [facility] HCT 25.4(L) 34.0 - 45.0 % LAB HEMATOLOGY METHOD 10/25/2024 12:30 PM EDT HEALTH[facility]ARE [facility] Blood Venous blood specimen / Unknown Venipuncture / Unknown 10/25/2024 12:23 PM EDT 10/25/2024 12:27 PM EDT Yuriy Lockett MD LAB BLOOD ORDERABLES Final Resul t Performing Organization Address City/[facility] de Phone Number HEALTHCARE LAB [address] [place] [address] * (ABNORMAL) Potassium (10/23/2024 10:26 AM EDT) Only the most recent of3 resultswithin the time period is included. Potassium, Plasma 5.2(H) 3.6 - 4.9 mmol/L 10/23/2024 10:53 AM EDT HEALTHCARE LAB Blood Venous blood specimen / Unknown Venipuncture / Unknown 10/23/2024 10:26 AM EDT 10/23/2024 10:33 AM EDT us Yuriy Lockett MD LAB BLOOD ORDERABLES Final Resul t Performing Organization Address City/[facility] de Phone Number [facility] [address] [place] [address] * ECG Adult (10/23/2024 8:22 AM EDT) Only the most recent of4 resultswithin the time period is included. EKG DIAGNOSIS CLASS Abnormal MUSE ECG Ventricular Rate 85 BPM MUSE ECG QRSD Interval 94 ms MUSE ECG QT Interval 378 ms MUSE ECG QTC Interval 449 ms MUSE ECG R [place] 23 degrees MUSE ECG T Wave [place] 124 degrees MUSE ECG Diagnosis Atrial fibrillation [...] ORDERABLES F inal Result Performing Organization Address City/[facility]/ZIP Co de Phone Number BLOOD BANK [address] [place] [address], [place] * Antibody Identification (10/22/2024 7:04 PM EDT) Only the most recent of3 resultswithin the time period is included. Antibody ID Anti-E Non-specif ic Patricia 10/22/2024 8:04 PM EDT BLOOD BANK Blood Venous blood specimen / Unknown Venipuncture / Unknown 10/22/2024 7:04 PM EDT 10/22/2024 7:08 PM EDT Yuriy Lockett MD LAB BLOOD BANK TEST ORDERABLES F inal Result Performing Organization Address [facility] Co de Phone Number BLOOD BANK [address] [place] [address], [place] * (ABNORMAL) Type and screen (10/22/2024 [...] ORDERABLES F inal Result Performing Organization Address [facility] de Phone Number BLOOD BANK [address] [place] [address], * Prepare Leukocyte Reduced RBC: 1 Units (10/22/2024 5:02 PM EDT) Only the most recent of3 resultswithin the time period is included. Product Code [id number] GS BLOO D BANK Dispense Status Transfused BLOOD BANK Blood Expiration Date [id number] BLOOD BANK Unit Number [id number] B LOOD BANK Product Blood Type 5100 BLOOD BANK Blood Type O+ BLOOD BANK Crossmatch Compatible BLOOD BANK Other Yuriy Lockett MD BLOOD BANK PRODUCT ORDERABLES Fi nal Result Performing Organization Address [facility] de Phone Number BLOOD BANK [address] [place] [address], [place] * XR Knee Right 3 Views [...] - 4.5 mg/dL 10/17/2024 1:43 AM EDT [facility] Blood Venous blood specimen / Unknown Venipuncture / Unknown 10/17/2024 1:04 AM EDT 10/17/2024 1:14 AM EDT us Aidan Harrison MD LAB BLOOD ORDERABLES Final Res ult [facility] [address] [place] [address] * (ABNORMAL) Comprehensive metabolic panel (10/17/2024 1:04 AM EDT) Only the most recent of4 resultswithin the time period is included. Glucose, Plasma 138(H) 74 - 99 mg/dL 10/17/2024 1:43 AM EDT [facility] BUN, Plasma 50(H) 8 - 23 mg/dL 10/17/2024 1:43 AM EDT [facility] Creatinine, Plasma 1.74(H) 0.60 - 1.10 mg/dL 10/17/2024 1:43 AM EDT [facility] BUN/Creatinine Ratio 29 10/17/2024 1:43 AM EDT [facility] Sodium, Plasma 141 136 - 145 mmol/L 10/17/2024 1:43 AM EDT [facility] Potassium, Plasma 4.0 3.6 - 4.9 mmol/L 10/17/2024 1:43 AM EDT [facility] Chloride, Plasma 114(H) 97 - 107 mmol/L 10/17/2024 1:43 AM EDT [facility] CO2, Plasma 16(L) 22 - 29 mmol/L 10/17/2024 1:43 AM EDT [facility] Anion Gap 11 6 - 16 mmol/L 10/17/2024 1:43 AM EDT [facility] Total Calcium, Plasma 8.2(L) 8.9 - 10.2 mg/dL 10/17/2024 1:43 AM EDT [facility] Total Protein 5.2(L) 6.3 - 7.9 g/dL 10/17/2024 1:43 AM EDT [facility] Albumin, Plasma 2.9(L) 3.5 - 5.2 g/dL 10/17/2024 1:43 AM EDT [facility] AST, Plasma 15 10 - 35 U/L 10/17/2024 1:43 AM EDT [facility] ALT, Plasma 5(L) 10 - 35 U/L 10/17/2024 1:43 AM EDT [facility] Alkaline Phosphatase, Plasma 85 46 - 142 U/L 10/17/2024 1:43 AM EDT [facility] Total Bilirubin, Plasma 0.2 0.2 - 1.1 mg/dL 10/17/2024 1:43 AM EDT [facility] eGFRcr 32.8 mL/min/1.7 3m*2 10/17/2024 1:43 AM EDT [facility] Comment:Reported eGFRcr in m L/min/1.73m2 is based the CKD-EPI 2020 equation that does not use a race coefficient. Blood Venous blood specimen / Unknown Venipuncture / Unknown 10/17/2024 1:04 AM EDT 10/17/2024 1:14 AM EDT us Aidan Harrison MD LAB BLOOD ORDERABLES Final Res ult [facility] [address] [place] [address] * [place] Modified Barium Swallow (10/16/2024 3:05 [...] sips by the cup or the teaspoon. Orosi consistency (IDDSI 2): There is no aspiration [...] sips by the cup or the teaspoon. Orosi consistency (IDDSI 2): There is no aspiration [...] 5.82 ng/mL/h 10/20/2024 12:14 PM EDT [facility] ([facility]) Comment: This test was developed and its analytical performance characteristics have been determined by [employer]. It has not been cleared or approved by the FDA. This assay has been validated pursuant to the CLIA regulations and is used for clinical purposes. Blood Venous blood specimen / Unknown Venipuncture / Unknown 10/16/2024 8:11 AM EDT 10/16/2024 8:22 AM EDT Narrative [facility] ([facility]) - 10/20/2024 12:14 PM EDT Performing Organization Information: Site ID: [id number] Name: [employer] Address: [address] [place] [id number] Director: Enedina Thao MD, PhD Aidan Harrison MD LAB BLOOD ORDERABLES Final Res ult [facility] ([facility]) [employer] [address] * (ABNORMAL) ACTH (10/16/2024 8:11 AM EDT) Only the most recent of2 resultswithin the time period is included. ACTH 5.45(L) 7.2 - 63 pg/mL 10/16/2024 11:38 AM EDT [facility] Blood Venous blood specimen / Unknown Venipuncture / Unknown 10/16/2024 8:11 AM EDT 10/16/2024 8:42 AM EDT Aidan Harrison MD LAB BLOOD ORDERABLES Final Res ult [facility] [address] [place] [address] * Folate (10/16/2024 8:11 AM EDT) Folate, Serum 8.2 >4.6 ng/mL 10/16/2024 9:29 AM EDT [facility] Blood Venous blood specimen / Unknown Venipuncture / Unknown 10/16/2024 8:11 AM EDT 10/16/2024 8:34 AM EDT Aidan Harrison MD LAB BLOOD ORDERABLES Final Res ult Performing Organization Address City/[facility]/[place] [address] * Ferritin (10/16/2024 8:11 AM EDT) Ferritin, Serum 73 13 - 150 ng/mL 10/16/2024 9:29 AM EDT [facility] Blood Venous blood specimen / Unknown Venipuncture / Unknown 10/16/2024 8:11 AM EDT 10/16/2024 8:34 AM EDT Aidan Harrison MD LAB BLOOD ORDERAB[place] [address] * Vitamin B12 (10/16/2024 8:11 AM EDT) Vitamin B12, Serum 906 210 - 1,033 pg/mL 10/16/2024 9:29 AM EDT [facility] Blood Venous blood specimen / Unknown Venipuncture / Unknown 10/16/2024 8:11 AM EDT 10/16/2024 8:34 AM EDT Aidan Harrison MD LAB BLOOD ORDERABLES Final Res ult [facility] [address] [place] [address] * [place] CRITICAL CARE, E/M 30-74 MINUTES (10/16/2024 6:41 [...] the findings and plan as documented. Result [facility] Aidan Harrison MD IN CLINIC/BEDSIDE ORDERABLES F inal Result * (ABNORMAL) Iron & Total Iron Binding Capacity, Plasma (Includes Transferrin) (10/16/2024 12:09 AM EDT) Iron, Plasma 21(L) 30 - 160 ug/dL 10/16/2024 7:15 AM EDT [facility] Transferrin, Plasma 159(L) 200 - 360 mg/dL 10/16/2024 7:15 AM EDT [facility] Total Iron Binding Capacity, Plasma 199(L) 240 - 450 ug/mL 10/16/2024 7:15 AM EDT [facility] Transferrin Saturation 11(L) 14 - 50 % 10/16/2024 7:15 AM EDT [facility] Blood Venous blood specimen / Unknown Venipuncture / Unknown 10/16/2024 12:09 AM EDT 10/16/2024 12:37 AM EDT Aidan Harrison MD LAB BLOOD ORDERABLES Final Res ult Performing Organization Address [facility] Co de Phone Number [facility] [address] [place] [address] * CORTISOL, 60 (10/15/2024 1:29 PM EDT) Cortisol Time=60 36.10 Before 10am: 3.7 - 19.4. After 5pm: 2.9 - 17.3 ug/dL 10/15/2024 3:46 PM EDT [facility] Comment:Administer cosyntrop in and obtain serum cortisol a Blood Venous blood specimen / Unknown Venipuncture / Unknown 10/15/2024 1:29 PM EDT 10/15/2024 2:03 PM EDT Aidan Harrison MD LAB BLOOD ORDERABLES Final Res ult Performing Organization Address [facility] Co de Phone Number [facility] [address] [place] [address] * Cortisol, 30 (10/15/2024 12:55 PM EDT) Cortisol,Time=30 31.20 Before 10am: 3.7 - 19.4. After 5pm: 2.9 - 17.3 ug/dL 10/15/2024 2:42 PM EDT [facility] Comment:Administer cosyntrop in and obtain serum cortisol a Blood Venous blood specimen / Unknown Venipuncture / Unknown 10/15/2024 12:55 PM EDT 10/15/2024 1:21 PM EDT Aidan Harrison MD LAB BLOOD ORDERABLES Final Res ult Performing Organization Address City/[facility]/ZIP Co de Phone Number [facility] [address] [place] [address] * Aldosterone (10/15/2024 12:08 PM EDT) Aldosterone 23.0 4.0 - 31.0 ng/dL 10/16/2024 1:35 AM EDT [facility] Blood Venous blood specimen / Unknown Venipuncture / Unknown 10/15/2024 12:08 PM EDT 10/15/2024 2:08 PM EDT Aidan Harrison MD LAB BLOOD ORDERABLES Final Res ult Performing Organization Address [facility] Co de Phone Number [facility] [address] [place] [address] * Cortisol Baseline (10/15/2024 12:08 PM EDT) Cortisol (Baseline) 11.60 Before 10am: 3.7 - 19.4. After 5pm: 2.9 - 17.3 ug/dL 10/15/2024 2:07 PM EDT [facility] Comment:Administer cosyntrop in and obtain serum cortisol a Blood Venous blood specimen / Unknown Venipuncture / Unknown 10/15/2024 12:08 PM EDT 10/15/2024 12:14 PM EDT Aidan Harrison MD LAB BLOOD ORDERABLES Final Res ult Performing Organization Address [facility] Co de Phone Number [facility] [address] [place] [address] * Cortisol (10/15/2024 8:29 AM EDT) Cortisol 9.60 Before 10am: 3.7 - 19.4. After 5pm: 2.9 - 17.3 ug/dL 10/15/2024 9:29 AM EDT [facility] Comment:Testing performed on [employer], standardized against PRISON Reference Standard concentration values assigned by LC-MS/MS and verified by BCR 192 and BCR 193 certified reference materials. Blood Venous blood specimen / Unknown Venipuncture / Unknown 10/15/2024 8:29 AM EDT 10/15/2024 8:38 AM EDT us Aidan Harrison MD LAB REF LAB BLOOD AND FLUID OR D Final Result [facility] [facility] [address] [place] [address] * [place] CRITICAL CARE, E/M 30-74 MINUTES (10/15/2024 6:49 [...] 0.16(H) <0.09 ng/mL 10/15/2024 6:41 AM EDT [facility] Blood Arterial blood specimen / Unknown Arterial Puncture / Unknown 10/15/2024 3:23 AM EDT 10/15/2024 3:31 AM EDT Narrative [facility] - 10/15/2024 6:41 AM EDT [...] predict 28 day mortality risk. Please consult [email or web address] for more information. Test performed at [facility], [facility]. us Aidan Harrison MD LAB BLOOD ORDERABLES Final Res ult [facility] [address] [place] [address] * (ABNORMAL) Comprehensive Urine Drug Screening, Qualitative Assay, >= 27 Drug Classes (53:04 PM EDT) Acetaminophen Negative Negative 10/16/2024 9:48 AM EDT [facility] Alprazolam Negative Negative 10/16/2024 9:48 AM EDT [facility] Amantadine Negative Negative 10/16/2024 9:48 AM EDT [facility] Amitriptyline Negative Negative 10/16/2024 9:48 AM EDT [facility] Amphetamine Negative Negative 10/16/2024 9:48 AM EDT [facility] Atenolol Negative Negative 10/16/2024 9:48 AM EDT [facility] Benzoylecgonine Negative Negative 9:48 AM EDT [facility] Bisoprolol Negative Negative 10/16/2024 9:48 AM EDT [facility] Bupropion Negative Negative 10/16/2024 9:48 AM EDT [facility] Butalbital Negative Negative 10/16/2024 9:48 AM EDT [facility] Carbamazepine Negative Negative 10/16/2024 9:48 AM EDT [facility] Carisoprodol Negative Negative 10/16/2024 9:48 AM EDT [facility] Chlorpheniramine Negative Negative 10/17/19 9:48 AM EDT [facility] Citalopram Negative Negative 10/16/2024 9:48 AM EDT [facility] Clindamycin Negative Negative 10/16/2024 9:48 AM EDT [facility] Clonidine Negative Negative 10/16/2024 9:48 AM EDT [facility] Clopidogrel / Ticlopidine Negative Negative 10/16/2024 9:48 AM EDT [facility] Cocaethylene Negative Negative 10/16/2024 9:48 AM EDT [facility] Cocaine Negative Negative 10/16/2024 9:48 AM EDT [facility] Codeine Negative Negative 10/16/2024 9:48 AM EDT [facility] Cyclobenzaprine Negative Negative 9:48 AM EDT [facility] Desvenlafaxine Negative Negative 10/16/2024 9:48 AM EDT [facility] Dextromethorphan Negative Negative 10/17/19 9:48 AM EDT [facility] Diazepam Negative Negative 10/16/2024 9:48 AM EDT [facility] Diltiazem Negative Negative 10/16/2024 9:48 AM EDT [facility] Diphenhydramine Negative Negative 9:48 AM EDT [facility] Doxepine Negative Negative 10/16/2024 9:48 AM EDT [facility] Doxylamine Negative Negative 10/16/2024 9:48 AM EDT [facility] EDDP-Methadone metabolite Negative Negative 10/16/2024 9:48 AM EDT [facility] Fentanyl Negative Negative 10/16/2024 9:48 AM EDT [facility] Fluconazole Negative Negative 10/16/2024 9:48 AM EDT [facility] Fluoxetine Negative Negative 10/16/2024 9:48 AM EDT [facility] Guaifenesin Negative Negative 10/16/2024 9:48 AM EDT [facility] Haloperidol Negative Negative 10/16/2024 9:48 AM EDT [facility] Heroin/6-JUVENCIO Negative Negative 10/16/2024 9:48 AM EDT [facility] Hydrocodone Negative Negative 10/16/2024 9:48 AM EDT [facility] Hydroxyzine / Cetirizine metabolite Negative Negative 10/16/2024 9:48 AM EDT [facility] Ibuprofen Negative Negative 10/16/2024 9:48 AM EDT [facility] Imipramine Negative Negative 10/16/2024 9:48 AM EDT [facility] Ketamine Negative Negative 10/16/2024 9:48 AM EDT [facility] Labetolol Negative Negative 10/16/2024 9:48 AM EDT [facility] Lamotrigine Negative Negative 10/16/2024 9:48 AM EDT [facility] Levetiracetam Negative Negative 10/16/2024 9:48 AM EDT [facility] Lidocaine Positive(A) Negative 10/16/2024 9:48 AM EDT [facility] MDA Negative Negative 10/16/2024 9:48 AM EDT [facility] MDMA Negative Negative 10/16/2024 9:48 AM EDT [facility] Memantine Negative Negative 10/16/2024 9:48 AM EDT [facility] Meperidine Negative Negative 10/16/2024 9:48 AM EDT [facility] Meprobamate Negative Negative 10/16/2024 9:48 AM EDT [facility] Metaxalone Negative Negative 10/16/2024 9:48 AM EDT [facility] Methamphetamine Negative Negative 9:48 AM EDT [facility] Methocarbamol Negative Negative 10/16/2024 9:48 AM EDT [facility] Methylecgonine Negative Negative 10/16/2024 9:48 AM EDT [facility] Metoclopramide Negative Negative 10/16/2024 9:48 AM EDT [facility] Metoprolol Negative Negative 10/16/2024 9:48 AM EDT [facility] Metronidazole Negative Negative 10/16/2024 9:48 AM EDT [facility] Midazolam Negative Negative 10/16/2024 9:48 AM EDT [facility] Midazolam Metabolite Negative Negative 10/16/2024 9:48 AM EDT [facility] Mirtazapine Negative Negative 10/16/2024 9:48 AM EDT [facility] Misc Test Result Positive(A) Negative 025 9:48 AM EDT [facility] Comment: Escitalopram Citalopram Trazodone Naproxen Negative Negative 10/16/2024 9:48 AM EDT [facility] Nefazodone Negative Negative 10/16/2024 9:48 AM EDT [facility] Norfentanyl Negative Negative 10/16/2024 9:48 AM EDT [facility] Nortriptyline Negative Negative 10/16/2024 9:48 AM EDT [facility] Ordanstron Negative Negative 10/16/2024 9:48 AM EDT [facility] Oxcarbazepine Negative Negative 10/16/2024 9:48 AM EDT [facility] Oxycodone Positive(A) Negative 10/16/2024 9:48 AM EDT [facility] Paroxethine Negative Negative 10/16/2024 9:48 AM EDT [facility] Phenobarbital Negative Negative 10/16/2024 9:48 AM EDT [facility] Phentermine Negative Negative 10/16/2024 9:48 AM EDT [facility] Phenytoin Negative Negative 10/16/2024 9:48 AM EDT [facility] Primidone Negative Negative 10/16/2024 9:48 AM EDT [facility] Promethazine Negative Negative 10/16/2024 9:48 AM EDT [facility] Propofol Negative Negative 10/16/2024 9:48 AM EDT [facility] Propranolol Negative Negative 10/16/2024 9:48 AM EDT [facility] Quetiapine Negative Negative 10/16/2024 9:48 AM EDT [facility] Quinine Negative Negative 10/16/2024 9:48 AM EDT [facility] Rantidine Negative Negative 10/16/2024 9:48 AM EDT [facility] Sertraline Negative Negative 10/16/2024 9:48 AM EDT [facility] Spironolactone Negative Negative 10/16/2024 9:48 AM EDT [facility] Tizanidine Negative Negative 10/16/2024 9:48 AM EDT [facility] Topiramate Negative Negative 10/16/2024 9:48 AM EDT [facility] Tramadol Negative Negative 10/16/2024 9:48 AM EDT [facility] Trazadone/ Trazadone metabolite Negative Negative 10/16/2024 9:48 AM EDT [facility] Trimethoprim Negative Negative 10/16/2024 9:48 AM EDT [facility] Valproic Acid Negative Negative 10/16/2024 9:48 AM EDT [facility] Venlafaxine Negative Negative 10/16/2024 9:48 AM EDT [facility] Verapamil Negative Negative 10/16/2024 9:48 AM EDT [facility] Zolpidem Negative Negative 10/16/2024 9:48 AM EDT [facility] Xylazine Negative Negative 10/16/2024 9:48 AM EDT [facility] Urine Urine specimen obtained by clean catch procedure / Unknown Non-blood Collection / Unknown 10/14/2024 3:04 PM EDT 10/14/2024 3:16 PM EDT us Aidan Harrison MD LAB URINE ORDERABLES Final Res ult [facility] [address] [place] [address] * Vitamin B1, Whole Blood (10/14/2024 2:35 PM EDT) [facility] VITAMIN B1, WHOLE BLOOD 128 70 - 180 nmol/L 10/17/2024 1:55 PM EDT [facility] ([facility]) Blood Arterial blood specimen / Unknown Arterial Line / Unknown 10/14/2024 2:35 PM EDT 10/14/2024 2:50 PM EDT Narrative [facility] ([place]) - 10/17/2024 1:55 PM [...] developed and its performance characteristics determined by [facility]. It has not been cleared or approved by the [place] Food and Drug Administration. This test was performed in a CLIA certified laboratory and is intended for clinical purposes. Performed By: [facility] [address] [place] [address] Outside Plant Technician: Jasper Newsome MD, PhD CLIA Number: [id number] us Aidan Harrison MD LAB BLOOD ORDERABLES Final Res ult [facility] [employer] ([facility]) [address] [place] [address] * (ABNORMAL) Blood gas panel with oximetry, mixed venous (10/14/2024 2:31 PM EDT) pH, Mixed Venous 7.27(L) 7.32 - 7.43 LAB HEMATOLOGY METHOD 10/14/2024 2:45 PM EDT [facility] pCO2, Mixed Venous 41 37 - 52 mmHg LAB HEMATOLOGY METHOD 10/14/2024 2:45 PM EDT [facility] pO2, Mixed Venous 34 25 - 40 mmHg LAB HEMATOLOGY METHOD 10/14/2024 2:45 PM EDT [facility] SO2, Measured, Mixed Venous 57(L) 65 - 80 % LAB HEMATOLOGY METHOD 10/14/2024 2:45 PM EDT [facility] Bicarbonate, Calculated, Mixed Venous 19(L) 22 - 26 mmol/L LAB HEMATOLOGY METHOD 10/14/2024 2:45 PM EDT [facility] Base Excess, Mixed Venous -7.6(L) -2.0 - 3.0 mmol/L LAB HEMATOLOGY METHOD 10/14/2024 2:45 PM EDT [facility] Hematocrit, Whole Blood 24.7(L) 34.0 - 45.0 % LAB HEMATOLOGY METHOD 10/14/2024 2:45 PM EDT [facility] Sodium, Whole Blood 144 136 - 145 mmol/L LAB HEMATOLOGY METHOD 10/14/2024 2:45 PM EDT [facility] Potassium, Whole Blood 3.6 3.6 - 4.9 mmol/L LAB HEMATOLOGY METHOD 10/14/2024 2:45 PM EDT [facility] Chloride, Whole Blood 113(H) 97 - 107 mmol/L LAB HEMATOLOGY METHOD 10/14/2024 2:45 PM EDT [facility] Ionized Calcium, Whole Blood 4.6 4.6 - 5.1 mg/dL LAB HEMATOLOGY METHOD 10/14/2024 2:45 PM EDT [facility] Glucose, Whole Blood 110(H) 74 - 99 mg/dL LAB HEMATOLOGY METHOD 10/14/2024 2:45 PM EDT [facility] Oxyhemoglobin, Mixed Venous, Whole Blood 56.2 40.0 - 70.0 % LAB HEMATOLOGY METHOD 10/14/2024 2:45 PM EDT [facility] Hemoglobin Reduced, Mixed Venous, Whole Blood 41.8 % LAB HEMATOLOGY METHOD 10/14/2024 2:45 PM EDT [facility] Total Hemoglobin, Mixed Venous, Whole Blood 8.1(L) 11.2 - 15.7 g/dL LAB HEMATOLOGY METHOD 10/14/2024 2:45 PM EDT [facility] Blood Mixed venous blood specimen / Unknown Venipuncture / Unknown 10/14/2024 2:31 PM EDT 10/14/2024 2:43 PM EDT us Aidan Harrison MD LAB BLOOD ORDERABLES Final Res ult [facility] [address] [place] [address] * Treponema Pallidum (Syphilis) Antibodies with Reflex to RPR and RPR Titer (Those with NO known Syphilis) (10/14/2024 9:44 AM EDT) Syphilis Antibody (IgG+IgM) Nonreactive Nonreactive 10/14/2024 11:42 AM EDT [facility] Comment:Nonreactive. No sero logic evidence of syphilis. No follow-up necessary unless clinically indicated (e.g., early syphilis). Blood Venous blood specimen / Unknown Venipuncture / Unknown 10/14/2024 9:44 AM EDT 10/14/2024 10:25 AM EDT Result Nicole Harrison MD LAB BLOOD ORDERABLES Final Res ult Performing Organization Address City/[facility]/ZIP Co de Phone Number [facility] [address] [place] [address] * (ABNORMAL) T3 (10/14/2024 9:44 AM EDT) T3, Serum 47(L) 87 - 187 ng/dL 10/14/2024 11:57 PM EDT [facility] Blood Venous blood specimen / Unknown Venipuncture / Unknown 10/14/2024 9:44 AM EDT 10/14/2024 10:25 AM EDT Result Nicole Harrison MD LAB BLOOD ORDERABLES Final Res ult Performing Organization Address [facility] Co de Phone Number [facility] [address] [place] [address] * [place] CRITICAL CARE, E/M 30-74 MINUTES (10/14/2024 8:59 [...] pleural effusion. No pneumothorax. Procedure Note Srikanth Coolrado MD - 10/14/2024 CLINICAL INDICATION: Increasing O2 [...] LAB HEMATOLOGY METHOD 10/14/2024 7:58 AM EDT [facility] pCO2, Arterial 35 35 - 48 mmHg LAB HEMATOLOGY METHOD 10/14/2024 7:58 AM EDT [facility] pO2, Arterial 75(L) >80 mmHg LAB HEMATOLOGY METHOD 10/14/2024 7:58 AM EDT [facility] SO2, Measured, Arterial 96 94 - 98 % LAB HEMATOLOGY METHOD 10/14/2024 7:58 AM EDT [facility] Base Excess, Arterial -7.8(L) -2.0 - 3.0 mmol/L LAB HEMATOLOGY METHOD 10/14/2024 7:58 AM EDT [facility] Bicarbonate, Calculated, Arterial 18(L) 22 - 26 mmol/L LAB HEMATOLOGY METHOD 10/14/2024 7:58 AM EDT [facility] Hematocrit, Whole Blood 24.5(L) 34.0 - 45.0 % LAB HEMATOLOGY METHOD 10/14/2024 7:58 AM EDT [facility] Sodium, Whole Blood 142 136 - 145 mmol/L LAB HEMATOLOGY METHOD 10/14/2024 7:58 AM EDT [facility] Potassium, Whole Blood 3.9 3.6 - 4.9 mmol/L LAB HEMATOLOGY METHOD 10/14/2024 7:58 AM EDT [facility] Chloride, Whole Blood 114(H) 97 - 107 mmol/L LAB HEMATOLOGY METHOD 10/14/2024 7:58 AM EDT [facility] Glucose, Whole Blood 100(H) 74 - 99 mg/dL LAB HEMATOLOGY METHOD 10/14/2024 7:58 AM EDT [facility] Ionized Calcium, Whole Blood 4.5(L) 4.6 - 5.1 mg/dL LAB HEMATOLOGY METHOD 10/14/2024 7:58 AM EDT [facility] Lactate, Arterial, Whole Blood 0.7 0.5 - 1.6 mmol/L LAB HEMATOLOGY METHOD 10/14/2024 7:58 AM EDT [facility] Blood Arterial blood specimen / Unknown Arterial Puncture / Unknown 10/14/2024 7:52 AM EDT 10/14/2024 7:55 AM EDT us Aidan Harrison MD LAB BLOOD ORDERABLES Final Res ult Performing Organization Address City/[facility]/[place] [address] * (ABNORMAL) BETA HYDROXYBUTYRIC ACID (10/14/2024 6:25 AM EDT) Beta-Hydroxybu tyric Acid, Plasma 1.36(H) <=0.27 mmol/L 10/14/2024 7:30 AM EDT [facility] Blood Venous blood specimen / Unknown Venipuncture / Unknown 10/14/2024 6:25 AM EDT 10/14/2024 6:33 AM EDT us Aidan Harrison MD LAB BLOOD ORDERABLES Final Res ult Performing Organization Address City/[facility] [place] [address] * TSH (10/14/2024 6:25 AM EDT) Thyroid Stimulating Hormone, Plasma 2.89 0.40 - 4.20 uIU/mL 10/14/2024 2:24 PM EDT [facility] Blood Venous blood specimen / Unknown Venipuncture / Unknown 10/14/2024 6:25 AM EDT 10/14/2024 6:33 AM EDT Aidan Harrisno MD LAB BLOOD ORDERABLES Final Res ult Performing Organization Address City/[facility]/[place] [address] * T4, free (10/14/2024 6:25 AM EDT) Free T4, Plasma 1.6 0.8 - 1.7 ng/dL 10/14/2024 2:24 PM EDT [facility] Blood Venous blood specimen / Unknown Venipuncture / Unknown 10/14/2024 6:25 AM EDT 10/14/2024 6:33 AM EDT us Aidan Harrison MD LAB BLOOD ORDERABLES Final Res ult Performing Organization Address City/[facility]/ZIP Co de Phone Number [facility] [address] [place] [address] * Ionized calcium, serum (10/14/2024 12:22 AM EDT) Ionized Calcium, Serum 4.8 4.6 - 5.3 mg/dL LAB HEMATOLOGY METHOD 10/14/2024 12:56 AM EDT [facility] Blood Venous blood specimen / Unknown Venipuncture / Unknown 10/14/2024 12:22 AM EDT 10/14/2024 12:34 AM EDT Kasey Win MD LAB BLOOD ORDERABLES Final Res ult Performing Organization Address [facility]/ZIP Co de Phone Number [facility] [address] [place] [address] * XR Hand Right 3+ Views (10/13/2024 [...] MD on 10/14/2024 7:56 AM Dariela Potter HUM[employer]OURCES SAFETY MANAGER IMG XR PROCEDURES Final Re sult * [...] 38(H) <14 ng/L 10/13/2024 10:18 AM EDT [facility] Troponin Delta 2 <10 ng/L 10/13/2024 10:18 AM EDT [facility] Troponin Delta Interpretation Not Significant 10/13/2024 10:18 AM EDT [facility] Comment:Not Significant. No acute change in troponin observed between the baseline and 2 hour samples. Blood Arterial blood specimen / Unknown Arterial Line / Unknown 10/13/2024 9:40 AM EDT 10/13/2024 9:50 AM EDT us Cat Jamison MD LAB BLOOD ORDERABLES Final Result Performing Organization Address City/State/[facility] Co de Phone Number [facility] [address] [place] [address] * [place] INSERT NON-TUNNEL CV CATH, HC INSERT NON-TUNNEL [...] were discussed: yes Alternatives discussed: No treatment [place] protocol: Procedure explained and questions answered to [...] IN CLINIC/BEDSIDE ORDERABLES F inal Result * TN INSERT CATH,ART,PERCUT,SHORTTERM, HC INSERT CATH,ART,PERCUT,SHORTTERM (10/13/2024 9:09 AM EDT) Narrative Aidan Harrison MD - 10/13/2024 9:09 AM EDT Aidan Harrison MD 10/13/2024 3:36 PM Arterial line Performed by: Erickson Gr DO Authorized by: Aidan Harrison MD Consent: Consent obtained: Emergent situation Consent given by: Patient Risks, benefits, and alternatives were discussed: yes Risks discussed: Bleeding, infection, ischemia, repeat procedure and pain [place] protocol: Procedure explained and questions answered to [...] is no recent study available for direct [id number] comparison. Left Ventricle The left ventricle is [...] is no recent study available for direct [id number] comparison. us Cat Jamison MD CV ECHO PROCEDURES Final R esult * Lactate, venous (10/13/2024 6:35 AM EDT) Lactate, Venous, Whole Blood 0.8 0.5 - 2.2 mmol/L LAB HEMATOLOGY METHOD 10/13/2024 6:40 AM EDT [facility] Blood Venous blood specimen / Unknown Venipuncture / Unknown 10/13/2024 6:35 AM EDT 10/13/2024 6:39 AM EDT us Kasey Win MD LAB BLOOD ORDERABLES Final Res ult Performing Organization Address City/[facility]/ZIP Co de Phone Number [facility] [address] [place] [address] * Blood Culture (Aerobic/Anaerobet Set) (10/13/2024 6:35 AM EDT) Culture No growth at day 5 LANA 10/18/2024 8:02 AM EDT [facility] Blood Venous blood specimen / Unknown Venipuncture / Unknown 10/13/2024 6:35 AM EDT 10/13/2024 7:18 AM EDT Kasey Win MD LAB MICROBIOLOGY - GENERAL ORD ERABLES Final Result Performing Organization Address [facility] [place] [address] * Urine Rao Panel (10/13/2024 6:08 AM EDT) Extra Reflex urine culture not indicated 10/13/2024 8:02 AM EDT [facility] Urine Urine specimen obtained by clean catch procedure / Unknown Non-blood Collection / Unknown 10/13/2024 6:08 AM EDT 10/13/2024 6:33 AM EDT us Kasey Win MD LAB URINE ORDERABLES Final Res ult Performing Organization Address [facility] Co de Phone Number [facility] [address] [place] [address] * Urinalysis Microscopic Examination (10/13/2024 6:08 AM EDT) Urine Urine specimen obtained by clean catch procedure / Unknown Non-blood Collection / Unknown 10/13/2024 6:08 AM EDT 10/13/2024 6:21 AM EDT us Kasey Win MD LAB URINE ORDERABLES Final Res ult Performing Organization Address City/[facility]/ZIP Co de Phone Number [facility] [address] [place] [address] * (ABNORMAL) Urinalysis with reflex microscopic (Culture NOT Included) (10/13/2024 6:08 AM ED) Only the most recent of2 resultswithin the time period is included. Color, Urine Yellow LAB URINALYSIS - AUTOMATED METHOD 10/13/2024 7:07 AM [facility] Clarity, Urine Clear LAB URINALYSIS - AUTOMATED METHOD 10/13/2024 7:07 AM [facility] Spec [place], Urine 1.016 1.005 - 1.030 LAB URINALYSIS - AUTOMATED METHOD 10/13/2024 7:07 AM [facility] pH, Urine 6.5 5.0 - 8.0 LAB URINALYSIS - AUTOMATED METHOD 10/13/2024 7:07 AM [facility] Protein, Urine Trace(A) Negative mg/dL LAB URINALYSIS - AUTOMATED METHOD 10/13/2024 7:07 AM [facility] Glucose, Urine Negative Negative mg/dL LAB URINALYSIS - AUTOMATED METHOD 10/13/2024 7:07 AM [facility] Ketones, Urine Negative Negative mg/dL LAB URINALYSIS - AUTOMATED METHOD 10/13/2024 7:07 AM [facility] Blood, Urine Negative Negative LAB URINALYSIS - AUTOMATED METHOD 10/13/2024 7:07 AM [facility] Bilirubin, Urine Negative Negative LAB URINALYSIS - AUTOMATED METHOD 10/13/2024 7:07 AM [facility] Urobilinogen, Urine 0.2 0.2 to 1.0 mg/dL LAB URINALYSIS - AUTOMATED METHOD 10/13/2024 7:07 AM [facility] Leukocytes, Urine Small(A) Negative LAB URINALYSIS - AUTOMATED METHOD 10/13/2024 7:07 AM [facility] Nitrite, Urine Negative Negative LAB URINALYSIS - AUTOMATED METHOD 10/13/2024 7:07 AM [facility] RBC, Urine <1 0 to 3 /HPF LAB URINALYSIS - AUTOMATED METHOD 10/13/2024 7:07 AM [facility] WBC, Urine 6 - 10(A) 0 to 5 /HPF LAB URINALYSIS - AUTOMATED METHOD 10/13/2024 7:07 AM EDT [facility] Squamous Epithelial Cells 0 - 2 0 to 5 /HPF LAB URINALYSIS - AUTOMATED METHOD 10/13/2024 7:07 AM EDT [facility] Hyaline Casts 0 - 2 0 to 5 /LPF LAB URINALYSIS - AUTOMATED METHOD 10/13/2024 7:07 AM EDT [facility] Bacteria, Urine Negative Negative LAB URINALYSIS - AUTOMATED METHOD 10/13/2024 7:07 AM EDT [facility] LAB Urine Urine specimen obtained by clean catch procedure / Unknown Non-blood Collection / Unknown 10/13/2024 6:08 AM EDT 10/13/2024 6:21 AM EDT us Kasey Win MD LAB URINE ORDERABLES Final Res ult Performing Organization Address [facility]/[place] [address] * Viv auris Surveillance by PCR (10/13/2024 6:05 AM EDT) Viv auris PCR Result Not Detected Not Detected 10/13/2024 12:18 PM EDT [facility] Swab (Axilla and Groin) Non-blood Collection / Unknown 10/13/2024 6:05 AM EDT 10/13/2024 6:31 AM EDT Narrative [facility] - 10/13/2024 12:18 PM EDT This PCR assay was developed and its performance characteristics determined by [facility] as appropriate for clinical purposes. This assay has not been cleared or approved by the FDA, but is performed in a CLIA regulated laboratory that is qualified to perform high-complexity testing. us Kasey Win MD LAB MICROBIOLOGY - GENERAL ORD ERABLES Final Result Performing Organization Address [facility]/[place] [address] * (ABNORMAL) Multi Drug Resistance Test (10/13/2024 6:05 AM EDT) Culture Klebsiella pneumoniae ESBL(AA) LANA 10/17/2024 11:07 AM EDT [facility] Comment: The organism value for this result has been updated. These results have been appended to the previously preliminary verified report. The organism value for this result has been updated. These results have been appended to the previously preliminary verified report. Swab (Nares and Rachel Rectal) Non-blood Collection / Unknown 10/13/2024 6:05 AM EDT 10/13/2024 6:31 AM EDT Narrative [facility] - 10/17/2024 11:07 AM EDT This test was developed and its performance characteristics determined by the [facility]. Although the media is FDA-approved, it is not FDA-approved for all specimen types submitted. The FDA has determined that such clearance or approval is not necessary. This test is used for surveillance purposes. It should not be regarded as investigational or for research. The [facility] is certified under [...] MICROBIOLOGY - GENERAL ORD ERABLES Final Result [facility] [address] [place] [address] * Methicillin Resistant Staphylococcus aureus (MRSA) by PCR (10/13/2024 6:05 AM EDT) Methicillin Resistant Staphylococcus aureus (MRSA) by PCR Not Detected Not Detected 10/13/2024 9:07 AM EDT [facility] Swab Both anterior nares / Unknown Non-blood Collection / Unknown 10/13/2024 6:05 AM EDT 10/13/2024 7:18 AM EDT Narrative [facility] - 10/13/2024 9:07 AM EDT [...] MICROBIOLOGY - GENERAL ORD ERABLES Final Result [facility] [address] [place] [address] * (ABNORMAL) Troponin T, High Sensitivity, 0 Hour Plasma, Reflex to 2 Hour (10/13/2024 5:18 AM EDT) [facility] Troponin T, High Sensitivity, 0 Hour 36(H) <14 ng/L 10/13/2024 6:21 AM EDT [facility] Blood Venous blood specimen / Unknown Venipuncture / Unknown 10/13/2024 5:18 AM EDT 10/13/2024 5:24 AM EDT us Cat Jamison MD LAB BLOOD ORDERABLES Final Result Performing Organization Address City/[facility]/ZIP Co de Phone Number [facility] [address] [place] [address] * (ABNORMAL) N-Terminal Probnp (10/13/2024 5:18 AM EDT) N-Terminal, PROBNP, Plasma 1,081(H) 0 - 899 pg/mL 10/13/2024 6:21 AM EDT [facility] Blood Venous blood specimen / Unknown Venipuncture / Unknown 10/13/2024 5:18 AM EDT 10/13/2024 5:24 AM EDT us Kasey Win MD LAB BLOOD ORDERABLES Final Res ult [facility] [address] [place] [address] * CT Bony Pelvis (10/13/2024 3:57 AM [...] 6.6(H) <5.7 % 10/13/2024 12:54 PM EDT [facility] Blood Venous blood specimen / Unknown Venipuncture / Unknown 10/13/2024 3:44 AM EDT 10/13/2024 3:46 AM EDT Narrative [facility] - 10/13/2024 12:54 PM EDT HA1C Interpretive Data: Diagnosis of Diabetes: Diabetic > or = 6.5% Pre-diabetic 5.7 to 6.4% Non-diabetic < or = 5.6% Glycemic Targets for Type I and Type II Diabetics: Non- Adults <7.0% Adults <6.0% Children and Adolescents <7.5% Source: [place] [employer]. Standards of medical care in diabetes,2017. Diabetes Care.2017:40 (suppl 1):S1-S135. us Kasey Win MD LAB BLOOD ORDERABLES Final Res ult [facility] [address] [place] [address] * (ABNORMAL) Blood gas, venous (10/13/2024 3:44 AM EDT) pH, Venous 7.29(L) 7.32 - 7.43 LAB HEMATOLOGY METHOD 10/13/2024 3:55 AM EDT [facility] pCO2, Venous 37 37 - 52 mmHg LAB HEMATOLOGY METHOD 10/13/2024 3:55 AM EDT [facility] pO2, Venous 26 25 - 40 mmHg LAB HEMATOLOGY METHOD 10/13/2024 3:55 AM EDT [facility] SO2, Measured, Venous 44(L) 65 - 80 % LAB HEMATOLOGY METHOD 10/13/2024 3:55 AM EDT [facility] Base Excess, Venous -8.5(L) -2.0 - 3.0 mmol/L LAB HEMATOLOGY METHOD 10/13/2024 3:55 AM EDT [facility] Bicarbonate, Calculated, Venous 17(L) 22 - 26 mmol/L LAB HEMATOLOGY METHOD 10/13/2024 3:55 AM EDT [facility] Hematocrit, Whole Blood 29.1(L) 34.0 - 45.0 % LAB HEMATOLOGY METHOD 10/13/2024 3:55 AM EDT [facility] Sodium, Whole Blood 134(L) 136 - 145 mmol/L LAB HEMATOLOGY METHOD 10/13/2024 3:55 AM EDT [facility] Potassium, Whole Blood 4.3 3.6 - 4.9 mmol/L LAB HEMATOLOGY METHOD 10/13/2024 3:55 AM EDT [facility] Chloride, Whole Blood 107 97 - 107 mmol/L LAB HEMATOLOGY METHOD 10/13/2024 3:55 AM EDT [facility] Glucose, Whole Blood 112(H) 74 - 99 mg/dL LAB HEMATOLOGY METHOD 10/13/2024 3:55 AM EDT [facility] Lactate, Venous, Whole Blood 1.2 0.5 - 2.2 mmol/L LAB HEMATOLOGY METHOD 10/13/2024 3:55 AM EDT [facility] Ionized Calcium, Whole Blood 4.8 4.6 - 5.1 mg/dL LAB HEMATOLOGY METHOD 10/13/2024 3:55 AM EDT [facility] Blood Venous blood specimen / Unknown Venipuncture / Unknown 10/13/2024 3:44 AM EDT 10/13/2024 3:53 AM EDT us Derik Renae MD LAB BLOOD ORDERABLES Final Resu lt [facility] [address] [place] [address] * Drug Abuse Screen, Urine (10/12/2024 11:56 PM EDT) Amphetamine Screen Urine Negative Cutoff: 500 ng/mL 10/13/2024 12:45 AM EDT [facility] Benzodiazepines Screen Urine Negative Cutoff: 200 ng/mL 10/13/2024 12:45 AM EDT [facility] Cannabinoid Screen Urine Negative Cutoff: 50 ng/mL 10/13/2024 12:45 AM EDT [facility] Cocaine Screen Urine Negative Cutoff: 300 ng/mL 10/13/2024 12:45 AM EDT [facility] Barbiturate Screen Urine Negative Cutoff: 200 ng/mL 10/13/2024 12:45 AM EDT [facility] Opiate Screen Urine Negative Cutoff: 300 ng/mL 10/13/2024 12:45 AM EDT [facility] Methadone Screen Urine Negative Cutoff: 300 ng/mL 10/13/2024 12:45 AM EDT [facility] Buprenorphine Screen Urine Negative Cutoff: 10 ng/mL 10/13/2024 12:45 AM EDT [facility] Fentanyl Screen Urine Negative Cutoff: 1 ng/mL 10/13/2024 12:45 AM EDT [facility] Oxycodone Screen Urine Negative Cutoff: 100 ng/mL 10/13/2024 12:45 AM EDT [facility] Urine Urine specimen obtained by clean catch procedure / Unknown Non-blood Collection / Unknown 10/12/2024 11:56 PM EDT 10/13/2024 12:13 AM EDT us Cat Jamison MD LAB URINE ORDERABLES Final Result Performing Organization Address [facility]/ZIP Co de Phone Number [facility] [address] [place] [address] * (ABNORMAL) Anti Xa Level Low Molecular Weight (10/12/2024 11:56 PM EDT) Anti Xa Level Low Molecular Weight Heparin >2.00(HH) <2.00 IU/mL 10/13/2024 1:02 AM EDT [facility] Blood Venous blood specimen / Unknown Venipuncture / Unknown 10/12/2024 11:56 PM EDT 10/13/2024 12:01 AM EDT Narrative [facility] - 10/13/2024 1:02 AM EDT Therapeutic Range: LMWH enoxaparin 1mg/kg/dose, 12hrs - peak (3-5 hours after dose): 0.5 - 1.0 IU/mL LMWH enoxaparin 1.5mg/kg/dose, 24hrs - peak (3-5 hours after dose): 1.0 - 2.0 IU/mL LMWH enoxaparin prophylaxis: Not established us Derik Renae MD LAB BLOOD ORDERABLES Final Resu lt Performing Organization Address City/[facility]/ZIP Co de Phone Number [facility] [address] [place] [address] * Red Blood Cell Antibody with Antigen Notification (10/12/2024 11:55 PM EDT) Notification, Gabriela Blood Cell Antibody with Antigen During your recent admission to the [facility], laboratory testing performed in the [...] do not hesitate to call me at [phone]. No defined reference value 10/14/2024 4:24 PM EDT BLOOD BANK Pathologist Signature, Red Blood Cell Antibody with Antigen Reviewed by: Srikanth Watson MD 10/14/2024 4:24 PM EDT [facility] Blood Venous blood specimen / Unknown Venipuncture / Unknown 10/12/2024 11:55 PM EDT 10/13/2024 12:04 AM EDT us Aidan Harrison MD LAB BLOOD BANK TEST ORDERABLES Final Result Performing Organization Address City/[facility]/ZIP Co de Phone Number BLOOD BANK [address] * ED HIV 1/2 Antibody/Antigen Screen w/Reflex to HIV 1/2 Differentiation (10/12/2024 11:55 PM EDT) HIV 1 & 2 Antibody/Antigen Screen Non Reactive Non Reactive 10/13/2024 12:58 AM EDT [facility] Comment:Screening for HIV 1 & 2 antibodies, and P24 antigen is NONREACTIVE. No confirmatory testing is required. Blood Venous blood specimen / Unknown Venipuncture / Unknown 10/12/2024 11:55 PM EDT 10/13/2024 12:12 AM EDT Cat Jamison MD LAB BLOOD ORDERABLES Final Result [facility] [address] [place] [address] * (ABNORMAL) Trauma shock panel blood gas (10/12/2024 11:55 PM EDT) [facility] pH, Venous 7.23(LL) 7.32 - 7.43 LAB HEMATOLOGY METHOD 10/13/2024 12:06 AM EDT [facility] Bicarbonate, Calculated, Venous 17(L) 22 - 26 mmol/L LAB HEMATOLOGY METHOD 10/13/2024 12:06 AM EDT [facility] Base Excess, Venous -10.0(L) -2.0 - 3.0 mmol/L LAB HEMATOLOGY METHOD 10/13/2024 12:06 AM EDT [facility] Lactate, Venous, Whole Blood 1.8 0.5 - 2.2 mmol/L LAB HEMATOLOGY METHOD 10/13/2024 12:06 AM EDT [facility] Blood Venous blood specimen / Unknown Venipuncture / Unknown 10/12/2024 11:55 PM EDT 10/13/2024 12:02 AM EDT us Cat Jamison MD LAB BLOOD ORDERABLES Final Result [facility] [address] [place] [address] * Ethyl Alcohol Plasma (10/12/2024 11:55 PM EDT) [facility] Ethanol Plasma <10 <10 mg/dL 10/13/2024 12:55 AM EDT [facility] Blood Venous blood specimen / Unknown Venipuncture / Unknown 10/12/2024 11:55 PM EDT 10/13/2024 12:12 AM EDT Narrative [facility] - 10/13/2024 12:55 AM EDT Enzymatic Assay: Performed on [employer]. us Cat Jamison MD LAB BLOOD ORDERABLES Final Result [facility] [address] [place] [address] * Hepatitis C Antibody - ED (10/12/2024 11:55 PM EDT) [facility] Hepatitis C Antibody Negative Negative 10/13/2024 12:58 AM EDT [facility] Blood Venous blood specimen / Unknown Venipuncture / Unknown 10/12/2024 11:55 PM EDT 10/13/2024 12:12 AM EDT Cat Jamison MD LAB BLOOD ORDERABLES Final Result Performing Organization Address [facility]/ZIP Co de Phone Number [facility] [address] [place] [address] * (ABNORMAL) TEG Global Hemostasis with Lysis (10/12/2024 11:55 PM EDT) Pathologist [facility] R, Lysis 9.3(H) 4.6 - 9.1 min 10/13/2024 1:21 AM EDT [facility] MA, Rapid, Lysis 69.9 52.0 - 70.0 mm 10/13/2024 1:21 AM EDT [facility] MA, Fibrinogen, Lysis 32.5(H) 15.0 - 32.0 mm 10/13/2024 1:21 AM EDT [facility] LY30 0.8 0.0 - 2.6 % 10/13/2024 1:21 AM EDT [facility] Blood Venous blood specimen / Unknown Venipuncture / Unknown 10/12/2024 11:55 PM EDT 10/13/2024 12:17 AM EDT Cat Jamison MD LAB BLOOD ORDERABLES Final Result Performing Organization Address City/[facility]/ZIP Co de Phone Number [facility] [address] [place] [address] * (ABNORMAL) APTT (PTT) (10/12/2024 11:55 PM EDT) [facility] aPTT 36(H) 25 - 35 sec 10/13/2024 12:15 AM EDT [facility] Blood Venous blood specimen / Unknown Venipuncture / Unknown 10/12/2024 11:55 PM EDT 10/13/2024 12:01 AM EDT Cat Jamison MD LAB BLOOD ORDERABLES Final Result [facility] [address] [place] [address] * (ABNORMAL) PT-INR (10/12/2024 11:55 PM EDT) Prothrombin Time 20.2(H) 12.0 - 14.3 sec 10/13/2024 12:14 AM EDT [facility] INR 1.7(H) 0.9 - 1.1 10/13/2024 12:14 AM EDT [facility] Blood Venous blood specimen / Unknown Venipuncture / Unknown 10/12/2024 11:55 PM EDT 10/13/2024 12:01 AM EDT Narrative [facility] - 10/13/2024 12:14 AM EDT OPTIMAL INR RANGES FOR PATIENT ON ORAL ANTICOAGULANT THERAPY Prevention of venous thromboembolism INR 2.0 to 3.0 In patients with heart disease: Atrial fibrillation INR 2.0 to 3.0 Valvular heart disease INR 2.0 to 3.0 Tissue heart valves INR 2.0 to 3.0 Mechanical prosthetic valves INR 2.5 to 3.5 Prevention of recurrent HI INR 2.5 to 3.5 Cat Jamison MD LAB BLOOD ORDERABLES Final Result Performing Organization Address [facility] Co de Phone Number [facility] [address] [place] [address] * Test Qualitative Plasma (10/12/2024 11:55 PM EDT) Test Negative Negative 10/13/2024 1:02 AM EDT [facility] Blood Venous blood specimen / Unknown Venipuncture / Unknown 10/12/2024 11:55 PM EDT 10/13/2024 12:12 AM EDT Narrative [facility] - 10/13/2024 1:02 AM EDT Reference Range: Males and non- females: Negative. Cat Jamison MD LAB BLOOD ORDERABLES Final Result [facility] [address] [place] [address] * CT OUTSIDE IMAGES (10/12/2024 8:15 PM [...] Documents on File Type Date Recorded Patient Staff Mine Warfare Officer Expl anation Advance Directives and Livin g Will 10/14/2024 4:42 PM Advance Directives and Livin g Will 10/13/2024 6:35 AM * Full Code (Latest Code Status on File) Date Activated Date Inactivated Comments 10/13/2024 5:26 AM 10/30/2024 7:10 PM Question Answer Comments I have reviewed the capacity from the link above and, if needed, have updated to appropriate status: Yes Care Teams Stem Teacher Relationship Specialty Start Date End Date Cosme Davis MD [address] [place] [id number] PCP - General 06/24/20
--- OUTSIDE RECORDS SUMMARY | 2025-01-11 06:20 | XMS_ITS | Encounter Summary ---
Author Organization [employer] ([place], [place], [place], [place], [place]) Address [address] [place] [address] Care Team Providers Care Wood Gouger Name Role Phone Unavailable Primary Care Provider Unavailabl e Encounter Details Date Type Department Care Team (Late st Contact Info) Description 03/23/2018 Transcribed Document [facility] [place] [address] [place] [address] ProviderZion MD [address] [place], [place] [id number] Social History Tobacco Use Types Packs/Day Years Used Date Smoking Tobacco: Never Assessed Comments Unknown Sex and Gender Information Value Date Recorded Sex Assigned at Not on file Legal Sex Female 4:39 PM CDT Gender Identity Not on file Sexual Orientation Not on file documented as of this encounter Miscellaneous Notes * [employer] Conversion Note - Zion ProviderMD - 03/23/2018 7:32 PM BILINGUAL TRAINER DATE OF ADMISSION: 03/23/2018 PRIMARY CARE [...] has been evaluated there and transferred to [facility]. Patient was at [facility] ER, came in, laying in bed, [...]
--- OUTSIDE RECORDS SUMMARY | 2025-01-11 06:20 | XMS_ITS | Encounter Summary ---
Author Organization [employer] ([place], [place], [place], [place], [place]) Address [address] [place] [address] Care Team Providers Care Rejoiner Name Role Phone Unavailable Primary Care Provider Unavailabl e Encounter Details Date Type Department Care Team (Late st Contact Info) Description 03/29/2018 Transcribed Document [facility] [place] [address] ProviderZion MD [address] [place] [id number] Social History Tobacco Use Types Packs/Day Years Used Date Smoking Tobacco: Never Assessed Comments Unknown Sex and Gender Information Value Date Recorded Sex Assigned at Not on file Legal Sex Female 4:39 PM CDT Gender Identity Not on file Sexual Orientation Not on file documented as of this encounter Miscellaneous Notes * [employer]ner Conversion Note - Zion Alonso MD - 03/29/2018 8:09 AM GAS STATION CLERK Patient: ETHAN CRONIN Age: 57 years Sex: Female : 1960 Associated Diagnoses: None Author: CARROLL HIGH MD-INF Basic Information CC: Sepsis bacteremia 03/19/18 4/4 bottles for Group b strep ([facility]), mitral prosthetic valve endocarditis History of Present Illness 57-year-old white female with history of bladder cancer, atrial flutter, pacemaker placement 2016, hypertension, DM2, COPD, pancreatitis, who recently had blood cultures obtained at [facility] on 03/19/18 for fever which were positive in 4 out of 4 bottles for group B Streptococcus. Patient was to start IV antibiotics but was found to have bradycardia and was admitted to [facility] on 03/23/17. I was consulted on 03/25/17. The patient had been started on vancomycin and Rocephin. Urine culture obtained at [facility] was positive for multiple bacteria [...] cefTRIAXone (Rocephin) - 2 Gram, IV Piggyback, [id number], infuse over 30 Minute(s), Routine Anticoagulant heparin [...] Normal strength, No tenderness. Integumentary: Warm, Dry, Nowthen, No pallor, No rash, Left chest wall [...] of 4 blood culture bottles positive at [facility] (spoke to Maurice Spencer, at [facility]). BROCK consistent with mitral valve endocarditis, prosthetic. [...] Dr. Perez's service, cardiology, and Dr. Alan.. roll out manager: Please arrange for outpatient IV antibiotics with Rocephin 2 g IV every 12 hours until 05/04/18. Follow CBC, CMP, CRP weekly while on IV antibiotics. Fax orders to [phone], and call [phone] with final arrangements. Arrange for follow-up with me in 2 weeks post discharge. documented in this encounter Plan of Treatment Not on file documented as of this encounter Visit Diagnoses Not on filedocumented in this encounter
--- OUTSIDE RECORDS SUMMARY | 2025-01-11 06:20 | XMS_ITS | Encounter Summary ---
Author Organization [employer] ([place], [place], [place], [place], [place]) Address [address] [place] [address] Care Team Providers Care Criminal Research Specialist Name Role Phone Unavailable Primary Care Provider Unavailabl e Encounter Details Date Type Department Care Team (Late st Contact Info) Description 05/07/2018 Transcribed Document [facility] [place] [address] [place] [address] ProviderZion MD [address], [place] [id number] Social History Tobacco Use Types Packs/Day Years [...] 16:09 EDT Electronically signed by Jorge Alberto [facility] Conversion Media Director Cerner at 05/29/2022 8:32 PM CDT documented in this encounter Plan of Treatment Not on file documented as of this encounter Visit Diagnoses Not on filedocumented in this encounter
--- OUTSIDE RECORDS SUMMARY | 2025-01-11 06:20 | XMS_ITS | Encounter Summary ---
Author Organization [employer] ([place], [place], [place], [place], [place]) Address [address] [place] [address] Care Team Providers Care Clinical Rn Manager Name Role Phone Unavailable Primary Care Provider Unavailabl e Encounter Details Date Type Department Care Team (Late st Contact Info) Description 05/07/2018 Transcribed Document [facility] [place] [address] [place] [address] ProviderZion MD [address] [place] [address] Social History Tobacco Use Types [...] Source : Stated Height Entry Format : Lee Height, Feet : 5 ft(Converted to: 152 cm, 60 Inch) Height, Inches : 1 Inch(Converted to: 0 ft 1 Inch, 2.54 cm) Clinical Height : 154.94 cm Weight Source : Standing scale Weight Entry Format : Lee Clinical Dosing Weight : 74.09 kg Weight, Pounds : 163 lb Body Surface Area (BSA) : 1.73 m2 Body Mass Index : 30.9 kg/m2 (HI) Tracy Body Weight : 47 kg GAYLA CASE [...] : daughter Emergency Contact #1 Relationship : [phone] Emergency Contact #2 : . Emergency Contact #2 Phone Number : . Emergency Contact #2 Relationship : . Primary Language : Mauritanian Preferred Communication Mode : Verbal Communication Barrier [...] Scale Risk Level : 25-45 Medium Risk Davis Fall Interventions : Adequate lighting, Assistive devices within reach, Personal items within reach, Reinforced to call for assistance before getting out of bed GAYLA CASE RN - 05/07/2018 11:33 EDT Valuables and Belongings Valuables and Belongings : Clothing Clothing : Common streetwear Clothing Disposition : Bedside, With family EVIEGAYLA RN - 05/07/2018 11:33 EDT Electronically signed by Jorge Alberto [facility] Conversion Platform Architect Cerner at 05/29/2022 8:46 PM CDT documented in this encounter Plan of Treatment Not on file documented as of this encounter Visit Diagnoses Not on filedocumented in this encounter
--- OUTSIDE RECORDS SUMMARY | 2025-01-11 06:20 | XMS_ITS | Encounter Summary ---
Author Organization [employer] ([place], [place], [place], [place], [place]) Address [address] [place] [address] Care Team Providers Care Elevator Constructor Name Role Phone Unavailable Primary Care Provider Unavailabl e Encounter Details Date Type Department Care Team (Late st Contact Info) Description 03/29/2018 Transcribed Document [facility] [place] [address] [place] [address] ProviderZion MD [address] [place] [address] Social History Tobacco Use Types [...] - Zion ProviderMD - 03/29/2018 11:59 PM GROCERY STORE ASSOCIATE Patient: ETHAN CRONIN Age: 57 years Sex: [...] At Bedtime Rocephin 2 Gram, IV Piggyback, [id number]...until 05/04/18 for 6 weeks ID recommendations: continue Rocephin 2 g IV every 12 hours to continue until 05/04/18 for 6 weeks. Then may suppress afterwards with penicillin VK 250 mg by mouth twice a day for life. Follow up: ======= Follow up with PCP in 1-2 wks Follow up with Cardiology in 2-4 wks BROCK in 4-[address] Alan at [facility]. follow up with ID in 2 weeks post discharge. follow up with CTS in 4 wks Disposition: ======== Rehab Discharge Summary: 57-year-old white female with history of bladder cancer, atrial flutter, pacemaker placement 2016, hypertension, DM2, COPD, pancreatitis, who recently had blood cultures obtained at [facility] on 03/19/18 for fever which were positive in 4 out of 4 bottles for group B Streptococcus. Patient was to start IV antibiotics but was found to have bradycardia and was admitted to on 03/23/17. Urine culture obtained at [facility] was positive for multiple bacteria consistent [...]
--- OUTSIDE RECORDS SUMMARY | 2025-01-11 06:20 | XMS_ITS | Encounter Summary ---
Author Organization [employer] ([place], [place], [place], [place], [place]) Address [address] [place] [address] Care Team Providers Care Business Support Associate Name Role Phone Unavailable Primary Care Provider Unavailabl e Encounter Details Date Type Department Care Team (Late st Contact Info) Description 05/07/2018 Transcribed Document [facility] [place] [address] [place] [address] ProviderZion MD [address] [place] [address] Social History Tobacco Use Types [...] you are awake and alert. ??? Take mkgn-bpm-wkoucly and prescription medicines only as told by [...] 11/18/2013 Document Revised: 07/02/2016 Document Reviewed: 05/19/2016 [employer] Interactive Patient Education ? 2017 [employer] Radiology Transesophageal Echocardiogram Transesophageal echocardiography ([facility]) [...] 11/25/2009 Document Revised: 07/05/2016 Document Reviewed: 07/30/2013 [employer] Interactive Patient Education ? 2017 [employer] documented in this encounter Plan of Treatment Not on file documented as of this encounter Visit Diagnoses Not on filedocumented in this encounter
--- OUTSIDE RECORDS SUMMARY | 2025-01-11 06:20 | XMS_ITS | Encounter Summary ---
Author Organization [employer] ([place], [place], [place], [place], [place]) Address [address] [place] [address] Care Team Providers Care Athlete Manager Name Role Phone Unavailable Primary Care Provider Unavailabl e Encounter Details Date Type Department Care Team (Late st Contact Info) Description 03/29/2018 Transcribed Document [facility] [place] [address] [place] [address] ProviderZion MD [address] [place] [address] Social History Tobacco Use [...] - Zion ProviderMD - 03/29/2018 3:54 PM AIR COMPRESSOR OPERATOR Patient Education Materials Follows:Disease Endocarditis Endocarditis [...] these instructions at home: Medicines ??? Take lpvl-aic-ldqcamd and prescription medicines only as told by [...] 01/28/2006 Document Revised: 11/09/2016 Document Reviewed: 11/09/2016 [employer] Interactive Patient Education ? 2017 [employer] documented in this encounter Plan of Treatment Not on file documented as of this encounter Visit Diagnoses Not on filedocumented in this encounter
--- OUTSIDE RECORDS SUMMARY | 2025-01-11 06:20 | XMS_ITS | Encounter Summary ---
Author Organization [employer] ([place], [place], [place], [place], [place]) Address [address] [place] [address] Care Team Providers Care Kettle Girl Name Role Phone Unavailable Primary Care Provider Unavailabl e Encounter Details Date Type Department Care Team (Late st Contact Info) Description 03/29/2018 Transcribed Document [facility] [place] [facility] [place] [address] ProviderZion MD [address] [place] [id number] Social History Tobacco Use Types Packs/Day Years Used Date Smoking Tobacco: Never Assessed Comments Unknown Sex and Gender Information Value Date Recorded Sex Assigned at Not on file Legal Sex Female 4:39 PM CDT Gender Identity Not on file Sexual Orientation Not on file documented as of this encounter Miscellaneous Notes * Cerner Conversion Note - Zion ProviderMD - 03/29/2018 1:35 PM ROSIN BARREL FILLER Patient: ETHAN LOREDO Age: 57 years Sex: [...] Rocephin: 2 Gram, 100 mL/Hr, IV Piggyback, [id number] Tylenol: 650 mg, Oral, Q4H, PRN: Other [...] 0 Refill(s) Rocephin: 2 Gram, IV Piggyback, [id number], 0 Refill(s) carvedilol 3.125 mg oral tablet: [...] At Bedtime Rocephin 2 Gram, IV Piggyback, [id number] , Medications (25) Active Scheduled: (13) aspirin EC 81 mg tab 81 mg 1 Tab, Oral, Daily carvedilol 3.125 mg tab 3.125 mg 1 Tab, Oral, Daily cefTRIAXone 2 Gram, IV Piggyback, [id number] citalopram 20 mg tab 20 mg 1 [...] - Coronary artery disease / SNOMED CT 6437755605 / Confirmed Cardiomyopathy / SNOMED CT 931600427 / Confirmed HLD - Hyperlipidemia / SNOMED CT 554887216 / Confirmed HTN - Hypertension / SNOMED CT 3707394205 / Confirmed Resolved: COPD - Chronic obstructive pulmonary disease / SNOMED CT 887907638, Active Problems (14) Anxiety Atrial flutter Bladder [...] 03/29/2018 06:25 Blood Urea Nitrogen 53 mg/dL [place] 03/29/2018 06:25 Glucose Level 97 mg/dL 03/29/2018 06:25 Calcium Level 9.4 mg/dL 03/29/2018 06:25 Impression and Plan EP status ok. Inc bun/cr- dc lisinopril. On No diuretics documented in this encounter Plan of Treatment Not on file documented as of this encounter Visit Diagnoses Not on filedocumented in this encounter
--- OUTSIDE RECORDS SUMMARY | 2025-01-11 06:20 | XMS_ITS | Encounter Summary ---
Author Organization [employer] ([place], [place], [place], [place], [place]) Address [address] [place] [address] Care Team Providers Care Mold Filling Operator Name Role Phone Unavailable Primary Care Provider Unavailabl e Encounter Details Date Type Department Care Team (Late st Contact Info) Description 03/29/2018 Transcribed Document [facility] [place] [address] [place] [address] ProviderZion MD [address] [place] [address] Social History Tobacco Use Types [...] - Zion ProviderMD - 03/29/2018 3:54 PM DIETITIAN [address] [place] [address] Patient Copy Patient Information: Name: ETHAN CRONIN Current Date: 03/29/2018 15:54:26 : 1960 Patient Address: [address] [place] [id number] Patient Attending Physician: MELY WHITNEY MD Primary Care Provider: CRUZ, NOT LISTED Primary Care Provider Phone: Discharge Diagnosis: Endocarditis Weight on Admission: 165 lb, 14 oz Comment: Follow-up Instructions: With: Address: When: JOHN TSAI [address] [facility] [place] [address] Business (1) Within 1 month With: Address: When: SUJIT DUNBAR [address] [facility], [address] [place] [address] Business (1) Within 2 weeks With: Address: When: Follow up with primary care provider Within 1 to 2 weeks With: Address: When: AJAY KRYS 10:00 AM Comments: [facility] Check in at [facility] @ 10:00 NPO after midnight Discharge Instructions: Immunizations Documented During Stay: No Immunizations Found Discharge Summary Sent to: [facility] [phone] Special Instructions: Report: [facility] [phone] Heart Failure Discharge Instructions (if any): Stroke [...] these instructions at home: Medicines ??? Take odrv-cup-gveqbug and prescription medicines only as told by [...] 01/28/2006 Document Revised: 11/09/2016 Document Reviewed: 11/09/2016 [employer] Interactive Patient Education ? 2017 [employer] CIGARETTE SMOKING: The facts are clear, cigarette smoking will shorten your life. Smoking can cause many illnesses along the way. As a healthcare provider, we recommend that you stop smoking. Assistance with quitting is available by contacting 3-474-DQUU-NOW. This is a free resource providing counseling, [...] Be sure to sign up for the [employer] patient portal, which gives you 24/ access to your medical information ??? including these discharge instructions ??? using your computer, smartphone, or tablet. Just go to [employer] to get started. Questions? Call . [facility] would like to thank you for allowing us to assist you with your healthcare needs. GERTRUDE Mcconnell VERONICA G, (or outbound sales representative) have received the above patient education materials/instructions and have verbalized understanding: Patient Signature _ Date/Time Patient Ore Roaster Signature (if needed) Date/Time Clinician/Hospital Ore Roaster Signature (if needed) Date/Time documented in this encounter Plan of Treatment Not on file documented as of this encounter Visit Diagnoses Not on filedocumented in this encounter
--- OUTSIDE RECORDS SUMMARY | 2025-01-11 06:20 | XMS_ITS | Encounter Summary ---
Author Organization [employer] ([place], [place], [place], [place], [place]) Address [address] [place] [address] Care Team Providers Care Debug Technician Name Role Phone Unavailable Primary Care Provider Unavailabl e Encounter Details Date Type Department Care Team (Late st Contact Info) Description 03/23/2018 Transcribed Document [facility] [place] [address] [place] [address] ProviderZion MD [address] [place], [place] [phone] Social History Tobacco Use Types Packs/Day Years Used Date Smoking Tobacco: Never Assessed Comments Unknown Sex and Gender Information Value Date Recorded Sex Assigned at Not on file Legal Sex Female 4:39 PM CDT Gender Identity Not on file Sexual Orientation Not on file documented as of this encounter Miscellaneous Notes * Cerner Conversion Note - Historical ProviderMD - 03/23/2018 9:00 AM LIFE INSURANCE SALES Consult Phone Call Documentation Entered On: 03/23/2018 [...]
--- OUTSIDE RECORDS SUMMARY | 2025-01-11 06:20 | XMS_ITS | Encounter Summary ---
Author Organization [employer] ([place], [place], [place], [place], [place]) Address [address] [place] [address] Care Team Providers Care Grants Assistant Name Role Phone Unavailable Primary Care Provider Unavailabl e Encounter Details Date Type Department Care Team (Late st Contact Info) Description 03/29/2018 Transcribed Document [facility] Radiology [address] [place] [address] Dodie Tirado MD [address] [address] Social History Tobacco Use Types Packs/Day [...] Rocephin: 2 Gram, 100 mL/Hr, IV Piggyback, [id number] Tylenol: 650 mg, Oral, Q4H, PRN: Other [...] 0 Refill(s) Rocephin: 2 Gram, IV Piggyback, [id number], 0 Refill(s) carvedilol 3.125 mg oral tablet: [...] At Bedtime Rocephin 2 Gram, IV Piggyback, [id number] , Medications (26) Active Scheduled: (14) aspirin EC 81 mg tab 81 mg 1 Tab, Oral, Daily carvedilol 3.125 mg tab 3.125 mg 1 Tab, Oral, Daily cefTRIAXone 2 Gram, IV Piggyback, [id number] citalopram 20 mg tab 20 mg 1 [...] - Coronary artery disease / SNOMED CT 6772540670 / Confirmed Cardiomyopathy / SNOMED CT 135221702 / Confirmed HLD - Hyperlipidemia / SNOMED CT 563986673 / Confirmed HTN - Hypertension / SNOMED CT 3610876738 / Confirmed, Active Problems (14) Anxiety Atrial [...] to rehab when bed available. Discussed with watch caser. documented in this encounter Plan of Treatment Not on file documented as of this encounter Visit Diagnoses Not on filedocumented in this encounter
--- OUTSIDE RECORDS SUMMARY | 2025-01-11 06:20 | XMS_ITS | Encounter Summary ---
Author Organization [employer] ([place], [place], [place], [place], [place]) Address [address] [place] [address] Care Team Providers Care Dip Painter Name Role Phone Unavailable Primary Care Provider Unavailabl e Encounter Details Date Type Department Care Team (Late st Contact Info) Description 03/23/2018 Transcribed Document [facility] [place] [address] [place] [address] ProviderZion MD [address] [place] [address] Social History Tobacco Use Types [...] - Historical ProviderMD - 03/23/2018 5:28 PM AUTOMOTIVE PRODUCTION WORKER Admission History, Adult Entered On: 03/23/2018 17:38 [...] #2 Relationship : sister Primary Language : Beninese Preferred Communication Mode : Verbal Communication Barrier : None eDmetri Arrington Rn - 03/23/2018 17:28 EST Fall [...] Scale Risk Level : 25-45 Medium Risk [place] Fall Interventions : Adequate lighting, Assistive devices [...] Source : Stated Height Entry Format : Morrice Height, Feet : 5 ft(Converted to: 152 [...] Body Mass Index : 31.4 kg/m2 (HI) Goff Body Weight : 47 kg Demetri Arrington [...] 17:28 EST Electronically signed by Jorge Alberto, [facility] Conversion Garbage Truck Driver Cerner at 05/29/2022 8:46 PM CDT documented in this encounter Plan of Treatment Not on file documented as of this encounter Visit Diagnoses Not on filedocumented in this encounter
[2025-01-11 06:25] LABS: Bilirubin,Urine Negative (Negative); Color,Urine YELLOW (Yellow); Glucose,Urine (UA) Negative (Negative); Ketones,Urine Negative (Negative); Leukocyte Esterase,Urine 1+ (Negative); PH,Urine 6.5 (5.0-8.5); Protein,Urine 1+ (Negative); Specific Gravity, Urine 1.015 (1.005-1.030); Urobilinogen,Urine 0.2 EU/dl (0.2)
[2025-01-11 06:26] LABS: Hematocrit 23.8 % (37.0-47.0); Hemoglobin 7.2 g/dL (12.2-16.2); Immature Granulocytes % 0.8 %; Mean Corpuscular HGB Conc 30.3 g/dL (31.8-35.4); Mean Corpuscular Hemoglobin 24.7 pg (27.0-31.2); Mean Corpuscular Volume 81.8 fl (81-99); Nucleated Red Blood Cells % 0 %; Platelet Count 186 K/mm3 (142-424); Red Blood Count 2.91 M/mm3 (4.20-5.40); Red Cell Distribution Width-SD 58.6 fL; White Blood Count 11.8 K/mm3 (4.8-10.8)
[2025-01-11 06:43] LABS: Amorphous Sediment,Urine 1+ /lpf; Bacteria,Urine 1+ /lpf; RBC,Urine Occasional #/hpf (0-3)
[2025-01-11 09:20] LABS: Hypochromasia 2+; Total Cells Counted 100
[2025-01-11 09:21] LABS: Target Cells 1+
[2025-01-11 10:11] LABS: Alanine Aminotransferase 94 U/L (12-78); Albumin Level 3.7 g/dl (3.5-5.0); Albumin/Globulin Ratio 1.3 (1.1-1.8); Alkaline Phosphatase 138 U/L (38-126); Anion Gap 17.4 mEq/L (5-15); Aspartate Amino Transferase 96 U/L (14-36); Bilirubin,Total 0.8 mg/dl (0.2-1.3); Calcium 8.4 mg/dl (8.4-10.2); Carbon Dioxide 21 mmol/L (22.0-30.0); Chloride 101 mmol/L (98-107); Creatinine,Serum 3.70 mg/dl (0.52-1.04); Estimated Glomerular Filt Rate 12 ml/min (>60); GFR (African American) 15 ML/MIN (>60); Globulin 2.8 g/dL (1.3-3.2); Potassium 5.4 mmoL/L (3.5-5.1); Sodium 134 mmol/L (136-145); Total Protein,Serum 6.5 g/dl (6.3-8.2); Uric Acid 10.3 mg/dl (2.5-6.2)
[2025-01-11 10:27] LABS: 25-OH Vitamin D, Total 23.3 ng/mL (30-100)
[2025-01-11 10:58] LABS: Blood Urea Nitrogen 139 mg/dl (7-17); Glucose 48 mg/dl (74-100)
[2025-01-12 13:08] LABS: Hemoglobin A1C 7.5 % (4.0-6.0)
== END 2025-01-11 23:59 | disposition home or self-care (01) ==
LOC: LAB.DROPOF 06:16
PROVIDERS: PCP Family Medicine; Visit Provider Nurse Practitioner Family
DX: N17.9 Acute kidney failure, unspecified (principal); N18.4 Chronic kidney disease, stage 4 (severe); E11.10 Type 2 diabetes mellitus with ketoacidosis without coma; E11.22 Type 2 diabetes mellitus with diabetic chronic kidney disease; N39.0 Urinary tract infection, site not specified; E03.9 Hypothyroidism, unspecified
CPT/HCPCS: 36415; 80053; 81001; 82306; 82570; 83036; 83970; 84156; 84550; 85007; 85025; 87086; 87088; 87186